=== PATIENT | female | born 1975 | race Caucasian/White ===

== ENCOUNTER 2017-03-07 21:43 | Emergency (ER) | payer OTHER ==
[2017-03-07] MEDS ORDERED: SODIUM CHLORIDE 0.9% 1,000 ML IV STA ×2 (22:10)
[2017-03-07] MEDS ORDERED: ONDANSETRON 4 MG/2 ML VIAL IVP STA (22:10)
[2017-03-07] MEDS ORDERED: KETOROLAC 30 MG/ML 1 ML VIAL IVP STA (22:10)
[2017-03-07] MEDS ORDERED: diphenhydrAMINE 50 MG/ML 1 ML VIAL IVP STA (22:10)
[2017-03-07] MEDS: MORPHINE SULFATE 4 MG/ML SYRINGE IV STA ×2 (22:18→22:38)
[2017-03-07 22:33] LABS: Basophils # (A) 0.1 k/uL (0-0.2); Basophils % (A) 1 %; CH 30.1; CHCM 34.8; Eosinophils # (A) 0.4 k/uL (0-0.7); Eosinophils % (A) 3 %; HCT 42.4 % (34.0-46.0); HDW 2.57; HGB 14.8 gm/dL (11.4-16.0); Luc # (Auto) 0.18; Luc % (Auto) 2; Lymphocytes # (A) 4.3 k/uL (1.0-4.8); Lymphocytes % (A) 39 %; MCH 30.4 pg (25.0-35.0); Monocytes # (A) 0.4 k/uL (0-1.0); Monocytes % (A) 4 %; Neutrophils # (A) 5.6 k/uL (1.3-7.7); Neutrophils % (A) 51 %; RBC 4.87 m/uL (3.80-5.40); RDW 13.2 % (11.5-15.5); WBC 10.9 k/uL (3.8-10.6); WBC (Perox) 11.07
--- NOTE | 2017-03-07 22:34 | ED ---
Abdominal Pain HPI - General Chief Complaint: Abdominal Pain Stated Complaint: Abd Pain Time Seen by Provider: 03/07/17 21:54 Source: patient, RN notes reviewed, old records reviewed Mode of arrival: ambulatory Limitations: no limitations - History of Present Illness Initial Comments: This is a 41-year-old female presenting to the emergency Department chief complaint of right flank pain. Patient reports it's been occurring for the past 2 days. She has a lengthy history of kidney stones. Patient states that she sees a urologist Uriah. She reports she's taken Flomax earlier today because she thinks she has another kidney stone. Patient states that she's been doing well for the past few months and hasn't had a recurrence of the kidney stones. Patient states that she takes Percocet for chronic left flank pain, and relates that her left flank feels fine compared to the right. She states that she's had some nausea. No specific vomiting. She also relates that over the past month she's had a dramatic weight loss without trying. She reports that she's had diarrhea off and on. Denies any blood in her stools. She reports that she told this her primary care provider and was seen earlier this week for evaluation for her diabetes. She was increased on her metformin. states he feels very chilled. Patient denies any recent chest pain, abdominal pain,vomiting, numbness or tingling, dysuria or hematuria, constipation or diarrhea, headaches or visual changes, or any other current symptoms - Related Data Home Medications Medication Instructions Recorded Confirmed LORazepam [Ativan] 1 mg PO BID 03/01/16 03/07/17 PARoxetine HCL [Paxil] 40 mg PO DAILY 03/01/16 03/07/17 oxyCODONE HCL/ACETAMINOPHEN 1 tab PO QID PRN 04/08/16 03/07/17 [Percocet 10-325 mg] Lisinopril [Zestril] 10 mg PO DAILY 03/07/17 03/07/17 Loratadine [Claritin] 10 mg PO DAILY 03/07/17 03/07/17 Metformin (Unknown Dose) 1 dose PO TID 03/07/17 03/07/17 Tamsulosin [Flomax] 0.4 mg PO DAILY 03/07/17 03/07/17 Previous Rx's Medication Instructions Recorded Ciprofloxacin HCl [Cipro] 500 mg PO Q12HR 7 Days 03/08/17 Fluconazole [Diflucan] 150 mg PO DAILY #2 tab 03/08/17 Ketorolac [Toradol] 10 mg PO Q6HR #15 tab 03/08/17 Allergies Allergy/AdvReac Type Severity Reaction Status Date / Time bupropion HCl Allergy Rash/Hives Verified 03/07/17 22:39 [From Wellbutrin] Iodinated Contrast- Oral and Allergy Anaphylaxis Verified 03/07/17 22:39 IV Dye [Iodinated Contrast Media - IV Dye] orange juice [[place]] Allergy Rash/Hives Verified 03/07/17 22:39 Penicillins Allergy Rash/Hives Verified 03/07/17 22:39 Sulfa (Sulfonamide Allergy Rash/Hives Verified 03/07/17 22:39 Antibiotics) morphine AdvReac Vomiting Verified 03/07/17 21:45 Review of Systems ROS Statement: Those systems with pertinent positive or pertinent negative responses have been documented in the HPI. ROS Other: All systems not noted in ROS Statement are negative. Past Medical History Past Medical History: Diabetes Mellitus Additional Past Medical History / Comment(s): abd pain, recurrent kidney stones , colitis, migraines, polycyctic kidney disorder History of Any Multi-Drug Resistant Organisms: None Reported Past Surgical History: Section, Cholecystectomy, Hysterectomy, Tubal Ligation Additional Past Surgical History / Comment(s): D&C, lithotripsy, left rotator cuff, ovarian cyst removal, left wrist surgery for tendonitis kidney scope with temporary stent placement Past Anesthesia/Blood Transfusion Reactions: No Reported Reaction Past Psychological History: ADD/ADHD, Anxiety, Depression Smoking Status: Current every day smoker Past Alcohol Use History: None Reported Past Drug Use History: None Reported - Past Family History Father Family Medical History: Coronary Artery Disease (CAD), CVA/TIA, Diabetes Mellitus, Renal Disease Additional Family Medical History / Comment(s): GLAUCOMA,NEUROPATHY HAD TRIPLE CAGB, FROM RENAL FAILURE Mother Family Medical History: Coronary Artery Disease (CAD), Hyperlipidemia, Hypertension, Rheumatoid Arthritis (RA) Additional Family Medical History / Comment(s): DDD, HAD CABG AGE 53. General Exam - General Exam Comments Initial Comments: 41-year-old female. No acute distress. Limitations: no limitations General appearance: alert Head exam: Present: atraumatic, normocephalic, normal inspection Eye exam: Present: normal appearance, PERRL, EOMI. Absent: scleral icterus, conjunctival injection, periorbital swelling ENT exam: Present: normal exam, mucous membranes moist Neck exam: Present: normal inspection. Absent: tenderness, meningismus, lymphadenopathy Respiratory exam: Present: normal lung sounds bilaterally. Absent: respiratory distress, wheezes, rales, rhonchi, stridor Cardiovascular Exam: Present: regular rate, normal rhythm, normal heart sounds. Absent: systolic murmur, diastolic murmur, rubs, gallop, clicks GI/Abdominal exam: Present: soft, normal bowel sounds, other (Right-sided CVA tenderness.). Absent: distended, tenderness, guarding, rebound, rigid Extremities exam: Present: normal inspection, full ROM, normal capillary refill. Absent: tenderness, pedal edema, joint swelling, calf tenderness Back exam: Present: normal inspection Neurological exam: Present: alert, oriented X3, CN II-XII intact Psychiatric exam: Present: normal affect, normal mood Skin exam: Present: warm, dry, intact, normal color. Absent: rash Course Vital Signs 03/07/17 03/07/17 03/07/17 21:45 22:40 23:35 Temperature 97.9 F 98.7 F Pulse Rate 107 H 73 72 Respiratory 20 18 16 Rate Blood Pressure 145/73 125/68 119/72 O2 Sat by Pulse 98 95 98 Oximetry Medical Decision Making - Medical Decision Making 41-year-old female presents emergency Department chief complaint of 2 days of right flank pain. Lengthy history of kidney stones. Does see a urologist and cold. Patient states that she is ready taken Flomax and has nausea medicine at home. She also takes Percocet regularly for chronic pain of her left kidney. Patient reports that her pain medication is not helping. Patient urinalysis is positive for hematuria, and some signs of infection with white blood cells noted. Culture obtained. Lab work in the [facility]CC was within normal limits, normal kidney function. No other significant abnormalities. RENALS US WAS OBTAINED, as patient reports multiple previous CT scan. NEGATIVE FOR ANY MAJOR HYDRONEPHROSIS OR OBSTRUCTION. PATIENT KUB ALSO SHOWS NO ABNORMAL BOWEL CHANGES. AGAIN PATIENT HAS NO ABDOMINAL TENDERNESS, ONLY SOME RIGHT CVA TENDERNESS. PATIENT BE DISCHARGED AT THIS TIME WITH ANTIBIOTICS, AND TORADOL. ALSO REQUESTS A PRESCRIPTION FOR DIFLUCAN SHE IS CONCERNED THAT SHE MAY GET THESE INFECTION. SHE HURT HE HAS NAUSEA MEDICINE AND PAIN MEDICATION AT HOME. WELL FLOMAX. PATIENT UNDERSTANDS TREATMENT PLAN WILL COMPLY. STRICT RETURN PARAMETERS WERE DISCUSSED. PATIENT PLANS TO FOLLOW-UP WITH HER PCP AND UROLOGIST WITHIN THE NEXT DAY OR 2. - Lab Data Result diagrams: 03/07/17 22:22 03/07/17 22:22 Lab Results 03/07/17 03/07/17 03/07/17 Range/Units 22:22 22:22 22:22 WBC 10.9 H (3.8-10.6) k/uL RBC 4.87 (3.80-5.40) m/uL Hgb 14.8 (11.4-16.0) gm/dL Hct 42.4 (34.0-46.0) % MCV 87.0 (80.0-100.0) fL MCH 30.4 (25.0-35.0) pg MCHC 35.0 (31.0-37.0) g/dL RDW 13.2 (11.5-15.5) % Plt Count 272 (150-450) k/uL Neutrophils % 51 % Lymphocytes % 39 % Monocytes % 4 % Eosinophils % 3 % Basophils % 1 % Neutrophils # 5.6 (1.3-7.7) k/uL Lymphocytes # 4.3 (1.0-4.8) k/uL Monocytes # 0.4 (0-1.0) k/uL Eosinophils # 0.4 (0-0.7) k/uL Basophils # 0.1 (0-0.2) k/uL PT 9.9 (9.0-12.0) sec INR 1.0 (<1.2) APTT 24.9 (22.0-30.0) sec Sodium 135 L (137-145) mmol/L Potassium 4.2 (3.5-5.1) mmol/L Chloride 100 (98-107) mmol/L Carbon Dioxide 20 L (22-30) mmol/L Anion Gap 15 mmol/L BUN 8 (7-17) mg/dL Creatinine 0.62 (0.52-1.04) mg/dL Est GFR (MDRD) Af Amer >60 (>60 ml/min/1.73 sqM) Est GFR (MDRD) Non-Af >60 (>60 ml/min/1.73 sqM) Glucose 269 H (74-99) mg/dL Calcium 10.3 H (8.4-10.2) mg/dL Total Bilirubin 0.6 (0.2-1.3) mg/dL AST 59 H (14-36) U/L ALT 88 H (9-52) U/L Alkaline Phosphatase 109 (38-126) U/L Total Protein 7.6 (6.3-8.2) g/dL Albumin 4.8 (3.5-5.0) g/dL Amylase 39 (30-110) U/L Lipase 266 (23-300) U/L Urine Color Urine Appearance (Clear) Urine pH (5.0-8.0) Ur Specific [place] (1.001-1.035) Urine Protein (Negative) Urine Glucose (UA) (Negative) Urine Ketones (Negative) Urine Blood (Negative) Urine Nitrite (Negative) Urine Bilirubin (Negative) Urine Urobilinogen (<2.0) mg/dL Ur Leukocyte Esterase (Negative) Urine RBC (0-5) /hpf Urine WBC (0-5) /hpf Urine WBC Clumps (None) /hpf Ur Squamous Epith Cells (0-4) /hpf Urine Bacteria (None) /hpf 03/07/17 Range/Units 22:22 WBC (3.8-10.6) k/uL RBC (3.80-5.40) m/uL Hgb (11.4-16.0) gm/dL Hct (34.0-46.0) % MCV (80.0-100.0) fL MCH (25.0-35.0) pg MCHC (31.0-37.0) g/dL RDW (11.5-15.5) % Plt Count (150-450) k/uL Neutrophils % % Lymphocytes % % Monocytes % % Eosinophils % % Basophils % % Neutrophils # (1.3-7.7) k/uL Lymphocytes # (1.0-4.8) k/uL Monocytes # (0-1.0) k/uL Eosinophils # (0-0.7) k/uL Basophils # (0-0.2) k/uL PT (9.0-12.0) sec INR (<1.2) APTT (22.0-30.0) sec Sodium (137-145) mmol/L Potassium (3.5-5.1) mmol/L Chloride (98-107) mmol/L Carbon Dioxide (22-30) mmol/L Anion Gap mmol/L BUN (7-17) mg/dL Creatinine (0.52-1.04) mg/dL Est GFR (MDRD) Af Amer (>60 ml/min/1.73 sqM) Est GFR (MDRD) Non-Af (>60 ml/min/1.73 sqM) Glucose (74-99) mg/dL Calcium (8.4-10.2) mg/dL Total Bilirubin (0.2-1.3) mg/dL AST (14-36) U/L ALT (9-52) U/L Alkaline Phosphatase (38-126) U/L Total Protein (6.3-8.2) g/dL Albumin (3.5-5.0) g/dL Amylase (30-110) U/L Lipase (23-300) U/L Urine Color Red Urine Appearance Cloudy H (Clear) Urine pH 5.5 (5.0-8.0) Ur Specific [place] 1.016 (1.001-1.035) Urine Protein 1+ H (Negative) Urine Glucose (UA) 4+ H (Negative) Urine Ketones 1+ H (Negative) Urine Blood Moderate H (Negative) Urine Nitrite Negative (Negative) Urine Bilirubin Negative (Negative) Urine Urobilinogen <2.0 (<2.0) mg/dL Ur Leukocyte Esterase Small H (Negative) Urine RBC >182 H (0-5) /hpf Urine WBC 33 H (0-5) /hpf Urine WBC Clumps Few H (None) /hpf Ur Squamous Epith Cells 9 H (0-4) /hpf Urine Bacteria Occasional H (None) /hpf Disposition Clinical Impression: Right flank pain, Kidney stone Disposition: HOME SELF-CARE Condition: Good Instructions: Flank Pain (ED) Additional Instructions: Patient denies to follow-up with your primary care provider and urologist. Take the antibiotics and prescriptions as prescribed. Return to the emergency department if any alarming signs or symptoms occur. Prescriptions: Ciprofloxacin HCl [Cipro] 500 mg PO Q12HR 7 Days Fluconazole [Diflucan] 150 mg PO DAILY #2 tab Ketorolac [Toradol] 10 mg PO Q6HR #15 tab Referrals: Melchor Stevens MD [Primary Care Provider] - 1-2 days Time of Disposition: 00:12
[2017-03-07 22:39] LABS: Appearance,Urine Cloudy (Clear); Bacteria,Urine Occasional /hpf; Bilirubin,Urine Negative (Negative); Glucose,Urine (UA) 4+ (Negative); Ketones,Urine 1+ (Negative); Leukocyte Esterase,Urine Small (Negative); Nitrite,Urine Negative (Negative); PH, Urine 5.5 (5.0-8.0); Particle Count 8873; Protein,Urine 1+ (Negative); RBC,Urine >182 /hpf (0-5); Specific Gravity,Urine 1.016 (1.001-1.035); Squamous Epithelial Cell,Urine 9 /hpf (0-4); UA Billing (MACRO vs. MICRO) MICRO; Urobilinogen,Urine <2.0 mg/dL (<2.0); WBC,Urine 33 /hpf (0-5)
[2017-03-07 22:43] LABS: ALT 88 U/L (9-52); AST 59 U/L (14-36); Alkaline Phosphatase 109 U/L (38-126); Amylase 39 U/L (30-110); Anion Gap 15 mmol/L; Blood Urea Nitrogen 8 mg/dL (7-17); Calcium 10.3 mg/dL (8.4-10.2); Carbon Dioxide 20 mmol/L (22-30); Chloride 100 mmol/L (98-107); Glucose 269 mg/dL (74-99); Non-African American GFR(MDRD) >60 (>60 ml/min/1.73 sqM); Potassium 4.2 mmol/L (3.5-5.1); Sodium 135 mmol/L (137-145); Total Bilirubin 0.6 mg/dL (0.2-1.3); Total Protein 7.6 g/dL (6.3-8.2)
[2017-03-07 22:45] LABS: Partial Thromboplastin Time 24.9 sec (22.0-30.0); Prothrombin Time 9.9 sec (9.0-12.0)
[2017-03-07 23:37] VITALS: RESP 16
[2017-03-07] MEDS ORDERED: HYDROmorphone 1 MG/ML 1 ML SYRINGE IVP STA (23:37)
--- NOTE | 2017-03-07 23:38 | US ---
EXAM: US Retroperitoneal Complete, Renal CLINICAL HISTORY: Pain. Hematuria. History of kidney stones. TECHNIQUE: Real-time ultrasound of the kidneys and bladder with image documentation. COMPARISON: CT dated 03/01/2016. FINDINGS: Right kidney: Right kidney measures 11.8 x 5.1 x 4.1 cm. No hydronephrosis. No shadowing renal calculi or mass visualized. Left kidney: Left kidney measures 10.2 x 4.7 x 4.0 cm. No hydronephrosis. No shadowing renal calculi or mass visualized. Bladder: Underdistended bladder. Ureteral jets not visualized. IMPRESSION: 1. Unremarkable renal ultrasound. No hydronephrosis or renal calculi visualized. 2. Underdistended urinary bladder. Ureteral jets not visualized.
[2017-03-08] MEDS ORDERED: CIPROFLOXACIN HCL 500 MG TAB PO STA (00:08)
[2017-03-08 00:14] VITALS: BP 127/72; PULSE 93; TEMP 98.6
--- NOTE | 2017-03-08 01:09 | XR ---
EXAM: XR Abdomen CLINICAL HISTORY: Right flank pain. TECHNIQUE: Frontal view of the abdomen and pelvis. A total of 2 upright frontal images were obtained. COMPARISON: No relevant prior studies available. FINDINGS: Free air: No free intraperitoneal air beneath the diaphragms. Gastrointestinal tract: Nonspecific bowel gas pattern without evidence of bowel obstruction. Visualized organs and vessels: Surgical clips in the gallbladder fossa. Small calcifications in the right pelvis, likely phleboliths. No calcifications within the renal fossa or along the expected course of the ureters. Bones/joints: No radiographically evidence of acute osseous abnormality. IMPRESSION: 1. Small calcifications in the right pelvis, likely phleboliths. 2. No radiographic evidence of calcifications in the renal fossa or along the expected course of the ureters. 3. No evidence of bowel obstruction or free air. 4. Surgical clips in the right upper quadrant compatible with cholecystectomy.
== END 2017-03-08 00:21 | disposition home or self-care (01) ==
LOC: EC 21:43
DX: N20.0 Calculus of kidney (principal); R11.0 Nausea; R68.83 Chills (without fever); R82.99 Other abnormal findings in urine; E11.9 Type 2 diabetes mellitus without complications; F32.9 Major depressive disorder, single episode, unspecified; F41.9 Anxiety disorder, unspecified; Z84.1 Family history of disorders of kidney and ureter; F17.200 Nicotine dependence, unspecified, uncomplicated; Z79.84 Long term (current) use of oral hypoglycemic drugs; Z79.899 Other long term (current) drug therapy; Z88.0 Allergy status to penicillin; Z88.2 Allergy status to sulfonamides; Z88.5 Allergy status to narcotic agent; Z88.8 Allergy status to other drugs, medicaments and biological substances; Z91.018 Allergy to other foods; Z91.041 Radiographic dye allergy status; Z90.49 Acquired absence of other specified parts of digestive tract; Z98.890 Other specified postprocedural states; Z87.442 Personal history of urinary calculi
CPT/HCPCS: 36415; 80053; 82150; 83690; 85025; 85610; 85730; 81001; 87086; 74000; 76770; 99285; 96374; 96375 ×4; 96361 ×2; J2270; J1200; J2405; J1885; J1170

== ENCOUNTER 2017-03-16 12:14 | Emergency (ER) | payer OTHER ==
[2017-03-16] MEDS ORDERED: ONDANSETRON 4 MG/2 ML VIAL IVP STA (12:35)
[2017-03-16] MEDS ORDERED: SODIUM CHLORIDE 0.9% 1,000 ML IV STA ×2 (12:35)
--- NOTE | 2017-03-16 12:38 | ED ---
General Adult HPI - General Chief complaint: Nausea/Vomiting/Diarrhea Stated complaint: Diarrhea/Abd Pain Time Seen by Provider: 03/16/17 12:26 Source: patient, RN notes reviewed, old records reviewed Mode of arrival: ambulatory Limitations: no limitations - History of Present Illness Initial comments: 41-year-old female presents for evaluation of 2 month history of diarrhea. Patient has past medical history of bilateral kidney stones. She takes Percocet for this at home. She denies missing any doses. She is also had some crampy abdominal pain. Which is minimal at the time my evaluation. States she' s had nausea with no vomiting. Denies fever or chills. She states that over the past 3 days her diarrhea has significantly worsened. His been watery. No blood. Denies dysuria. Denies chest pain or shortness of breath. - Related Data Home Medications Medication Instructions Recorded Confirmed LORazepam [Ativan] 1 mg PO BID 03/01/16 03/16/17 PARoxetine HCL [Paxil] 40 mg PO DAILY 03/01/16 03/16/17 oxyCODONE HCL/ACETAMINOPHEN 1 tab PO QID PRN 04/08/16 03/16/17 [Percocet 10-325 mg] Lisinopril [Zestril] 10 mg PO DAILY 03/07/17 03/16/17 Loratadine [Claritin] 10 mg PO DAILY 03/07/17 03/16/17 Tamsulosin [Flomax] 0.4 mg PO DAILY 03/07/17 03/16/17 metFORMIN HCL [metFORMIN HCL ER] 750 mg PO BID 03/16/17 03/16/17 Allergies Allergy/AdvReac Type Severity Reaction Status Date / Time bupropion HCl Allergy Rash/Hives Verified 03/16/17 13:26 [From Wellbutrin] Iodinated Contrast- Oral and Allergy Anaphylaxis Verified 03/16/17 13:26 IV Dye [Iodinated Contrast Media - IV Dye] orange juice [[place]] Allergy Rash/Hives Verified 03/16/17 13:26 Penicillins Allergy Rash/Hives Verified 03/16/17 13:26 Sulfa (Sulfonamide Allergy Rash/Hives Verified 03/16/17 13:26 Antibiotics) Review of Systems ROS Statement: Those systems with pertinent positive or pertinent negative responses have been documented in the HPI. ROS Other: All systems not noted in ROS Statement are negative. Past Medical History Past Medical History: Diabetes Mellitus Additional Past Medical History / Comment(s): abd pain, recurrent kidney stones , colitis, migraines, polycyctic kidney disorder History of Any Multi-Drug Resistant Organisms: None Reported Past Surgical History: Section, Cholecystectomy, Hysterectomy, Tubal Ligation Additional Past Surgical History / Comment(s): D&C, lithotripsy, left rotator cuff, ovarian cyst removal, left wrist surgery for tendonitis kidney scope with temporary stent placement Past Anesthesia/Blood Transfusion Reactions: No Reported Reaction Past Psychological History: ADD/ADHD, Anxiety, Depression Smoking Status: Current every day smoker Past Alcohol Use History: None Reported Past Drug Use History: None Reported - Past Family History Father Family Medical History: Coronary Artery Disease (CAD), CVA/TIA, Diabetes Mellitus, Renal Disease Additional Family Medical History / Comment(s): GLAUCOMA,NEUROPATHY HAD TRIPLE CAGB, FROM RENAL FAILURE Mother Family Medical History: Coronary Artery Disease (CAD), Hyperlipidemia, Hypertension, Rheumatoid Arthritis (RA) Additional Family Medical History / Comment(s): DDD, HAD CABG AGE 53. General Exam Limitations: no limitations General appearance: alert, in no apparent distress Head exam: Present: atraumatic, normocephalic Eye exam: Present: normal appearance, PERRL ENT exam: Present: mucous membranes moist Neck exam: Present: normal inspection, full ROM. Absent: tenderness Respiratory exam: Present: normal lung sounds bilaterally. Absent: respiratory distress Cardiovascular Exam: Present: regular rate, normal rhythm GI/Abdominal exam: Present: soft. Absent: distended, tenderness, guarding, rebound Extremities exam: Present: normal inspection, normal capillary refill. Absent: pedal edema Back exam: Present: normal inspection. Absent: CVA tenderness (R), CVA tenderness (L) Neurological exam: Present: alert, oriented X3 Psychiatric exam: Present: normal affect, normal mood Skin exam: Present: warm, dry, intact. Absent: cyanosis, diaphoretic Course Vital Signs 03/16/17 03/16/17 03/16/17 12:20 12:50 14:00 Temperature 97.0 F L 98.3 F Pulse Rate 107 H 82 Respiratory 17 18 18 Rate Blood Pressure 130/78 128/73 O2 Sat by Pulse 99 99 Oximetry Medical Decision Making - Medical Decision Making 41-year-old female presents with 2 month history of diarrhea worsening over the past 3 days. No recent travel. No new pads. No recent antibiotics. Patient is well-hydrated on examination. She is also having some flank pain consistent with her history kidney stones. X-rays obtained shows no obstruction or free air, there is kidney stone. Kidney function is within normal limits. Patient receives IV hydration and pain medication. She is feeling much better. She does have elevated serum glucose at 256 with history diabetes. She is currently taking metformin for this. Urinalysis shows greater than 182 red blood cells consistent with cardiac kidney stone. There is also 3+ glucose and 1+ ketone. She receives IV hydration and is instructed to continue this when she gets home. I believe ketones are related more to dehydration rather than diabetic ketoacidosis. Patient is agreeable with this plan she will return to the emergency department with worsening symptoms. Patient will be given follow-up with gastroenterology for the 2 month history of diarrhea. Diagnosis: Kidney stone, diarrhea - Lab Data Result diagrams: 03/16/17 12:45 03/16/17 12:45 Lab Results 03/16/17 03/16/17 03/16/17 Range/Units 12:45 12:45 12:45 WBC 12.6 H (3.8-10.6) k/uL RBC 4.68 (3.80-5.40) m/uL Hgb 14.3 (11.4-16.0) gm/dL Hct 41.7 (34.0-46.0) % MCV 89.1 (80.0-100.0) fL MCH 30.6 (25.0-35.0) pg MCHC 34.4 (31.0-37.0) g/dL RDW 13.1 (11.5-15.5) % Plt Count 296 (150-450) k/uL Neutrophils % 63 % Lymphocytes % 30 % Monocytes % 3 % Eosinophils % 2 % Basophils % 1 % Neutrophils # 7.9 H (1.3-7.7) k/uL Lymphocytes # 3.7 (1.0-4.8) k/uL Monocytes # 0.4 (0-1.0) k/uL Eosinophils # 0.3 (0-0.7) k/uL Basophils # 0.1 (0-0.2) k/uL Sodium 138 (137-145) mmol/L Potassium 4.4 (3.5-5.1) mmol/L Chloride 104 (98-107) mmol/L Carbon Dioxide 17 L (22-30) mmol/L Anion Gap 17 mmol/L BUN 11 (7-17) mg/dL Creatinine 0.67 (0.52-1.04) mg/dL Est GFR (MDRD) Af Amer >60 (>60 ml/min/1.73 sqM) Est GFR (MDRD) Non-Af >60 (>60 ml/min/1.73 sqM) Glucose 256 H (74-99) mg/dL Calcium 10.1 (8.4-10.2) mg/dL Total Bilirubin 0.6 (0.2-1.3) mg/dL AST 97 H (14-36) U/L ALT 102 H (9-52) U/L Alkaline Phosphatase 108 (38-126) U/L Total Protein 7.4 (6.3-8.2) g/dL Albumin 4.5 (3.5-5.0) g/dL Amylase 33 (30-110) U/L Lipase 193 (23-300) U/L Urine Color Light Red Urine Appearance Cloudy H (Clear) Urine pH 5.5 (5.0-8.0) Ur Specific [place] 1.022 (1.001-1.035) Urine Protein 1+ H (Negative) Urine Glucose (UA) 3+ H (Negative) Urine Ketones 1+ H (Negative) Urine Blood Large H (Negative) Urine Nitrite Negative (Negative) Urine Bilirubin Negative (Negative) Urine Urobilinogen <2.0 (<2.0) mg/dL Ur Leukocyte Esterase Trace H (Negative) Urine RBC >182 H (0-5) /hpf Urine WBC 8 H (0-5) /hpf Ur Squamous Epith Cells 15 H (0-4) /hpf Urine Mucus Rare H (None) /hpf Urine HCG, Qual (Not Detectd) 03/16/17 Range/Units 12:45 WBC (3.8-10.6) k/uL RBC (3.80-5.40) m/uL Hgb (11.4-16.0) gm/dL Hct (34.0-46.0) % MCV (80.0-100.0) fL MCH (25.0-35.0) pg MCHC (31.0-37.0) g/dL RDW (11.5-15.5) % Plt Count (150-450) k/uL Neutrophils % % Lymphocytes % % Monocytes % % Eosinophils % % Basophils % % Neutrophils # (1.3-7.7) k/uL Lymphocytes # (1.0-4.8) k/uL Monocytes # (0-1.0) k/uL Eosinophils # (0-0.7) k/uL Basophils # (0-0.2) k/uL Sodium (137-145) mmol/L Potassium (3.5-5.1) mmol/L Chloride (98-107) mmol/L Carbon Dioxide (22-30) mmol/L Anion Gap mmol/L BUN (7-17) mg/dL Creatinine (0.52-1.04) mg/dL Est GFR (MDRD) Af Amer (>60 ml/min/1.73 sqM) Est GFR (MDRD) Non-Af (>60 ml/min/1.73 sqM) Glucose (74-99) mg/dL Calcium (8.4-10.2) mg/dL Total Bilirubin (0.2-1.3) mg/dL AST (14-36) U/L ALT (9-52) U/L Alkaline Phosphatase (38-126) U/L Total Protein (6.3-8.2) g/dL Albumin (3.5-5.0) g/dL Amylase (30-110) U/L Lipase (23-300) U/L Urine Color Urine Appearance (Clear) Urine pH (5.0-8.0) Ur Specific [place] (1.001-1.035) Urine Protein (Negative) Urine Glucose (UA) (Negative) Urine Ketones (Negative) Urine Blood (Negative) Urine Nitrite (Negative) Urine Bilirubin (Negative) Urine Urobilinogen (<2.0) mg/dL Ur Leukocyte Esterase (Negative) Urine RBC (0-5) /hpf Urine WBC (0-5) /hpf Ur Squamous Epith Cells (0-4) /hpf Urine Mucus (None) /hpf Urine HCG, Qual Not Detected (Not Detectd) Disposition Clinical Impression: Diarrhea, Renal stone Disposition: HOME SELF-CARE Condition: Good Instructions: Acute Diarrhea (ED) Referrals: Melchor Stevens MD [Primary Care Provider] - 1-2 days Yanira Win MD [STAFF PHYSICIAN] - 1-2 days Time of Disposition: 14:45
[2017-03-16 13:11] LABS: Basophils # (A) 0.1 k/uL (0-0.2); Basophils % (A) 1 %; CHCM 33.8; Eosinophils # (A) 0.3 k/uL (0-0.7); Eosinophils % (A) 2 %; HCT 41.7 % (34.0-46.0); HDW 2.48; HGB 14.3 gm/dL (11.4-16.0); Luc # (Auto) 0.19; Luc % (Auto) 2; Lymphocytes # (A) 3.7 k/uL (1.0-4.8); Lymphocytes % (A) 30 %; MCH 30.6 pg (25.0-35.0); MCHC 34.4 g/dL (31.0-37.0); MCV 89.1 fL (80.0-100.0); Mean Platelet Volume 7.5; Monocytes # (A) 0.4 k/uL (0-1.0); Monocytes % (A) 3 %; Neutrophils # (A) 7.9 k/uL (1.3-7.7); Neutrophils % (A) 63 %; RBC 4.68 m/uL (3.80-5.40); RDW 13.1 % (11.5-15.5); WBC 12.6 k/uL (3.8-10.6); WBC (Perox) 12.93
[2017-03-16 13:14] LABS: Appearance,Urine Cloudy (Clear); Bilirubin,Urine Negative (Negative); Glucose,Urine (UA) 3+ (Negative); Ketones,Urine 1+ (Negative); Leukocyte Esterase,Urine Trace (Negative); Mucus,Urine Rare /hpf; Nitrite,Urine Negative (Negative); PH, Urine 5.5 (5.0-8.0); Particle Count 8825; Protein,Urine 1+ (Negative); RBC,Urine >182 /hpf (0-5); Specific Gravity,Urine 1.022 (1.001-1.035); Squamous Epithelial Cell,Urine 15 /hpf (0-4); UA Billing (MACRO vs. MICRO) MICRO; Urobilinogen,Urine <2.0 mg/dL (<2.0); WBC,Urine 8 /hpf (0-5)
--- NOTE | 2017-03-16 13:19 | XR ---
Abdomen HISTORY: Pain and diarrhea Frontal view of the abdomen on 2 images correlated to prior abdomen 03/07/2017 There is a scoliotic curvature present of the thoracic lumbar spine. Surgical clips are present in th e right upper quadrant. Lung bases are clear. No evident pneumoperitoneum or bowel obstruction. There is a paucity of bowel gas. Difficult to exclude nephrolithiasis. IMPRESSION: There is a relative decrease of bowel gas. Possible nephrolithiasis. Alternate imaging ma y be of benefit. Follow-up as indicated.
[2017-03-16 13:40] LABS: ALT 102 U/L (9-52); AST 97 U/L (14-36); Alkaline Phosphatase 108 U/L (38-126); Amylase 33 U/L (30-110); Anion Gap 17 mmol/L; Blood Urea Nitrogen 11 mg/dL (7-17); Calcium 10.1 mg/dL (8.4-10.2); Carbon Dioxide 17 mmol/L (22-30); Chloride 104 mmol/L (98-107); Glucose 256 mg/dL (74-99); Non-African American GFR(MDRD) >60 (>60 ml/min/1.73 sqM); Potassium 4.4 mmol/L (3.5-5.1); Sodium 138 mmol/L (137-145); Total Bilirubin 0.6 mg/dL (0.2-1.3); Total Protein 7.4 g/dL (6.3-8.2)
[2017-03-16] MEDS ORDERED: MORPHINE SULFATE 4 MG/ML SYRINGE IVP STA (14:06)
[2017-03-16 14:15] VITALS: BP 128/73
[2017-03-16] MEDS ORDERED: KETOROLAC 30 MG/ML 1 ML VIAL IVP STA (14:37)
[2017-03-16 15:01] VITALS: PULSE 74; RESP 16; TEMP 98.7
== END 2017-03-16 15:03 | disposition home or self-care (01) ==
LOC: EC 12:14
DX: R19.7 Diarrhea, unspecified (principal); N20.0 Calculus of kidney; R10.9 Unspecified abdominal pain; R11.0 Nausea; E11.9 Type 2 diabetes mellitus without complications; F32.9 Major depressive disorder, single episode, unspecified; F41.9 Anxiety disorder, unspecified; F90.9 Attention-deficit hyperactivity disorder, unspecified type; F17.200 Nicotine dependence, unspecified, uncomplicated; Z79.84 Long term (current) use of oral hypoglycemic drugs; Z79.899 Other long term (current) drug therapy; Z91.041 Radiographic dye allergy status; Z88.0 Allergy status to penicillin; Z88.2 Allergy status to sulfonamides; Z91.048 Other nonmedicinal substance allergy status; Z88.8 Allergy status to other drugs, medicaments and biological substances
CPT/HCPCS: 36415; 80053; 82150; 83690; 85025; 81001; 81025; 74000; 99284; 96374; 96375 ×2; 96361 ×2; J2270; J2405; J1885

== ENCOUNTER 2017-03-19 19:26 | Inpatient (IN) | payer OTHER ==
[2017-03-19] MEDS ORDERED: SODIUM CHLORIDE 0.9% 1,000 ML IV STA (22:54)
[2017-03-19] MEDS ORDERED: SODIUM CHLORIDE 0.9% 500 ML IV STA (22:54)
[2017-03-19] MEDS ORDERED: ONDANSETRON 4 MG/2 ML VIAL IVP STA (22:54)
[2017-03-19] MEDS ORDERED: MORPHINE SULFATE 4 MG/ML SYRINGE IV STA (22:54)
[2017-03-19] MEDS ORDERED: RX INFO: IV CONTRAST WAS GIVEN 1 EACH MISC MISCELLANE PRN (22:54)
[2017-03-19] MEDS ORDERED: methylPREDNISolone SOD SUCCI 125 MG/2 ML VIAL IV STA (23:08)
[2017-03-19] MEDS ORDERED: diphenhydrAMINE 50 MG/ML 1 ML VIAL IVP STA (23:09)
[2017-03-19] MEDS ORDERED: FAMOTIDINE 20 MG/2 ML VIAL IV STA (23:10)
[2017-03-19 23:14] LABS: Basophils # (A) 0.1 k/uL (0-0.2); Basophils % (A) 1 %; CH 30.2; CHCM 33.9; Eosinophils # (A) 0.3 k/uL (0-0.7); Eosinophils % (A) 2 %; HCT 42.5 % (34.0-46.0); HDW 2.43; HGB 14.7 gm/dL (11.4-16.0); Luc # (Auto) 0.24; Luc % (Auto) 2; Lymphocytes # (A) 4.4 k/uL (1.0-4.8); Lymphocytes % (A) 36 %; MCH 30.8 pg (25.0-35.0); MCHC 34.6 g/dL (31.0-37.0); MCV 89.2 fL (80.0-100.0); Mean Platelet Volume 7.2; Monocytes # (A) 0.5 k/uL (0-1.0); Monocytes % (A) 4 %; Neutrophils # (A) 6.8 k/uL (1.3-7.7); Neutrophils % (A) 55 %; RBC 4.76 m/uL (3.80-5.40); RDW 13.2 % (11.5-15.5); WBC 12.3 k/uL (3.8-10.6); WBC (Perox) 12.99
[2017-03-19 23:27] LABS: ALT 95 U/L (9-52); AST 101 U/L (14-36); Alkaline Phosphatase 104 U/L (38-126); Amylase 53 U/L (30-110); Anion Gap 14 mmol/L; Blood Urea Nitrogen 13 mg/dL (7-17); Calcium 10.2 mg/dL (8.4-10.2); Carbon Dioxide 20 mmol/L (22-30); Chloride 103 mmol/L (98-107); Glucose 188 mg/dL (74-99); Non-African American GFR(MDRD) >60 (>60 ml/min/1.73 sqM); Potassium 5.4 mmol/L (3.5-5.1); Sodium 137 mmol/L (137-145); Total Bilirubin 1.1 mg/dL (0.2-1.3); Total Protein 8.1 g/dL (6.3-8.2)
[2017-03-19] MEDS ORDERED: SODIUM CHLORIDE 0.9% 2,000 ML IV ONE (23:31)
--- NOTE | 2017-03-20 00:29 | CT ---
EXAMINATION TYPE: CT abdomen pelvis wo con DATE OF EXAM: 03/20/2017 COMPARISON: 03/01/2016 and 05/12/2015 HISTORY: Prior on synapse 2016, renal stone protocol, lower left sided abd pain with nausea and diarr hea, history of cholecystectomy and hysterectomy CT DLP: 527.10 mGycm Automated exposure control for dose reduction was used. TECHNIQUE: Helical acquisition of images was performed from the lung bases through the pelvis. FINDINGS: Lung bases are clear of consolidation. There is no pleural effusion. Heart size is normal. Liver shows no focal defect. There are clips from cholecystectomy. Bile ducts are not dilated. Spleen and pancreas appear normal. There is no adrenal mass. Kidneys have normal size and contour. There is no hydronephrosis. Ureters a re not dilated. There is a 7 mm calcification at the right renal pelvis. There is no retroperitoneal adenopathy. There is no ascites. I see no intestinal wall thickening. There are no dilated loops. Appendix appears normal. Bladder dis tends smoothly. There are phleboliths in the pelvis. I see no bony destructive process. Liver is enla rged and measures 20 cm in length. There is a 2 mm calcification at the posterior aspect of the left renal pelvis that is probably vascu lar. This is also present on the old CT scan and is unchanged. This is near the ureteropelvic junctio n. This calcification is also stable compared to 05/12/2015. IMPRESSION: CALCULUS IN THE RIGHT RENAL PELVIS IS NEW COMPARED TO OLD CT SCAN. STABLE TINY CALCULUS AT THE SCHEDULING CLERK IOR ASPECT ON THE LEFT SIDE AT THE URETEROPELVIC JUNCTION THAT I DO NOT THINK IS PRODUCING AN OBSTRUC TION. THE LEFT RENAL COLLECTING SYSTEM IS SMALLER THAN OLD CT SCAN OF 05/12/2015. THE RIGHT RENAL SHANTE CULUS IS NOT PRODUCING ANY HYDRONEPHROSIS. NORMAL APPENDIX. Hepatomegaly.
[2017-03-20 00:42] LABS: Appearance,Urine Cloudy (Clear); Bilirubin,Urine Negative (Negative); Glucose,Urine (UA) 4+ (Negative); Ketones,Urine 1+ (Negative); Leukocyte Esterase,Urine Small (Negative); Mucus,Urine Moderate /hpf; Nitrite,Urine Negative (Negative); PH, Urine 5.5 (5.0-8.0); Particle Count 12735; Protein,Urine 1+ (Negative); RBC,Urine >182 /hpf (0-5); Squamous Epithelial Cell,Urine 5 /hpf (0-4); UA Billing (MACRO vs. MICRO) MICRO; Urobilinogen,Urine <2.0 mg/dL (<2.0)
[2017-03-20] MEDS ORDERED: SODIUM POLYSTYRENE SULFONATE 15 GM/60 ML BOTTLE PO STA (01:11)
[2017-03-20] MEDS: MORPHINE SULFATE 4 MG/ML SYRINGE IVP PRN ×2 (01:20→03:31)
--- NOTE | 2017-03-20 02:11 | ED ---
Abdominal Pain HPI - General Chief Complaint: Abdominal Pain Stated Complaint: Abd Pain Source: patient Mode of arrival: ambulatory Limitations: no limitations - History of Present Illness Initial Comments: 41 years old female presents with abdominal pain, pain is in the lower abdomen and also complaining about a diarrhea ongoing for about 3 weeks she is saying that she lost 20 pounds she is status post hysterectomy she does have a history of kidney stones Pain is in the lower abdomen bilaterally. She denies any fever no chills denies any vomiting been nauseous denies any fever or chills. Denies any headaches or neck stiffness no chest pain or shortness of breath - Related Data Home Medications Medication Instructions Recorded Confirmed LORazepam [Ativan] 1 mg PO TID 03/01/16 03/19/17 PARoxetine HCL [Paxil] 40 mg PO HS 03/01/16 03/19/17 oxyCODONE HCL/ACETAMINOPHEN 1 tab PO TID PRN 04/08/16 03/19/17 [Percocet 10-325 mg] Lisinopril [Zestril] 10 mg PO HS 03/07/17 03/19/17 Loratadine [Claritin] 10 mg PO HS 03/07/17 03/19/17 metFORMIN HCL 1,000 mg PO TID 03/19/17 03/19/17 Allergies Allergy/AdvReac Type Severity Reaction Status Date / Time bupropion HCl Allergy Rash/Hives Verified 03/19/17 23:01 [From Wellbutrin] Iodinated Contrast- Oral and Allergy Anaphylaxis Verified 03/19/17 23:01 IV Dye [Iodinated Contrast Media - IV Dye] orange juice [[place]] Allergy Rash/Hives Verified 03/19/17 23:01 Sulfa (Sulfonamide Allergy Rash/Hives Verified 03/19/17 23:01 Antibiotics) Penicillins AdvReac Nausea & Verified 03/19/17 23:01 Vomiting Review of Systems ROS Statement: Those systems with pertinent positive or pertinent negative responses have been documented in the HPI. ROS Other: All systems not noted in ROS Statement are negative. Past Medical History Past Medical History: Diabetes Mellitus Additional Past Medical History / Comment(s): abd pain, recurrent kidney stones , colitis, migraines, polycyctic kidney disorder History of Any Multi-Drug Resistant Organisms: None Reported Past Surgical History: Section, Cholecystectomy, Hysterectomy, Tubal Ligation Additional Past Surgical History / Comment(s): D&C, lithotripsy, left rotator cuff, ovarian cyst removal, left wrist surgery for tendonitis kidney scope with temporary stent placement Past Anesthesia/Blood Transfusion Reactions: No Reported Reaction Past Psychological History: ADD/ADHD, Anxiety, Depression Smoking Status: Current every day smoker Past Alcohol Use History: None Reported Past Drug Use History: None Reported - Past Family History Father Family Medical History: Coronary Artery Disease (CAD), CVA/TIA, Diabetes Mellitus, Renal Disease Additional Family Medical History / Comment(s): GLAUCOMA,NEUROPATHY HAD TRIPLE CAGB, FROM RENAL FAILURE Mother Family Medical History: Coronary Artery Disease (CAD), Hyperlipidemia, Hypertension, Rheumatoid Arthritis (RA) Additional Family Medical History / Comment(s): DDD, HAD CABG AGE 53. General Exam - General Exam Comments Initial Comments: General: The patient is awake and alert, in moderate distress Skin: Skin is warm and dry and no rashes or lesions are noted. Eye: Pupils are equal, round and reactive to light, extra-ocular movements are intact; there is normal conjunctiva bilaterally. Ears, nose, mouth and throat: There are moist mucous membranes and no oral lesions. Neck: The neck is supple, there is no tenderness or JVD. Cardiovascular: There is a regular rate and rhythm. No murmur, rub or gallop is appreciated. Respiratory: To auscultation bilateral, no wheezing no rhonchi no distress respiratory garcia noticed Gastrointestinal: Diffuse mild tenderness noticed in the lower abdomen positive bowel sounds no guarding no rebounds, mildly tender midthoracic area social Back: There is no tenderness to palpation in the midline. There is no obvious deformity. Musculoskeletal: Normal ROM, no tenderness, There is no pedal edema. There is no calf tenderness or swelling. No cords were appreciated. Neurological: CN II-XII intact, Cranial nerves III through XII are intact. There are no obvious motor or sensory deficits. Coordination appears grossly intact. Speech is normal. Psychiatric: Cooperative, appropriate mood & affect, normal judgment. Limitations: no limitations Course Vital Signs 03/19/17 03/20/17 03/20/17 20:39 00:29 01:51 Temperature 98.2 F Pulse Rate 91 62 74 Respiratory 20 18 18 Rate Blood Pressure 119/86 117/59 106/58 O2 Sat by Pulse 99 99 97 Oximetry 03/20/17 02:29 Temperature 97.9 F Pulse Rate 82 Respiratory 18 Rate Blood Pressure 103/57 O2 Sat by Pulse 98 Oximetry Did require some pain medications, labs were reviewed and discussed with her white count is slightly elevated 12.3 lactate is 3.0 potassium is 5.4 AST and ALT are [address] of the abdomen was forhe Iv, Roceph but considering her history of anaphylaxis with the IV contrast is a discontinued the IV narcotic lost vinny be better off getting that later with a prolonged are up with the steroids and Benadryl and IV Pepcid. CT showed renal calculi bilateral, nonerythematous obstructive. Unfortunately stool sample was not available during her stay in the hospital she got to him 2 L of fluids, lactate is still elevated and she still complaining about abdominal pain I plan to admit her to the CAT scan (a consult Dr. Lo considering her 3 weeks worth the diarrhea for possible scope is in considering elevated lactate and continuous abdominal pain of the chiropractors broad-spectrum antibiotics Medical Decision Making - Lab Data Result diagrams: 03/19/17 22:49 03/19/17 22:49 Lab Results 03/19/17 03/19/17 03/19/17 Range/Units 22:49 22:49 22:49 WBC 12.3 H (3.8-10.6) k/uL RBC 4.76 (3.80-5.40) m/uL Hgb 14.7 (11.4-16.0) gm/dL Hct 42.5 (34.0-46.0) % MCV 89.2 (80.0-100.0) fL MCH 30.8 (25.0-35.0) pg MCHC 34.6 (31.0-37.0) g/dL RDW 13.2 (11.5-15.5) % Plt Count 283 (150-450) k/uL Neutrophils % 55 % Lymphocytes % 36 % Monocytes % 4 % Eosinophils % 2 % Basophils % 1 % Neutrophils # 6.8 (1.3-7.7) k/uL Lymphocytes # 4.4 (1.0-4.8) k/uL Monocytes # 0.5 (0-1.0) k/uL Eosinophils # 0.3 (0-0.7) k/uL Basophils # 0.1 (0-0.2) k/uL Sodium 137 (137-145) mmol/L Potassium 5.4 H (3.5-5.1) mmol/L Chloride 103 (98-107) mmol/L Carbon Dioxide 20 L (22-30) mmol/L Anion Gap 14 mmol/L BUN 13 (7-17) mg/dL Creatinine 0.60 (0.52-1.04) mg/dL Est GFR (MDRD) Af Amer >60 (>60 ml/min/1.73 sqM) Est GFR (MDRD) Non-Af >60 (>60 ml/min/1.73 sqM) Glucose 188 H (74-99) mg/dL Lactic Ac Sepsis Rflx Plasma Lactic Acid Brant 3.0 H* (0.7-2.0) mmol/L Calcium 10.2 (8.4-10.2) mg/dL Total Bilirubin 1.1 (0.2-1.3) mg/dL AST 101 H (14-36) U/L ALT 95 H (9-52) U/L Alkaline Phosphatase 104 (38-126) U/L Total Protein 8.1 (6.3-8.2) g/dL Albumin 4.8 (3.5-5.0) g/dL Amylase 53 (30-110) U/L Lipase 280 (23-300) U/L Urine Color Urine Appearance (Clear) Urine pH (5.0-8.0) Ur Specific [place] (1.001-1.035) Urine Protein (Negative) Urine Glucose (UA) (Negative) Urine Ketones (Negative) Urine Blood (Negative) Urine Nitrite (Negative) Urine Bilirubin (Negative) Urine Urobilinogen (<2.0) mg/dL Ur Leukocyte Esterase (Negative) Urine RBC (0-5) /hpf Ur Squamous Epith Cells (0-4) /hpf Urine Mucus (None) /hpf Urine Yeast (Budding) (None) /hpf Urine HCG, Qual (Not Detectd) 03/19/17 03/20/17 03/20/17 Range/Units 23:27 00:29 00:29 WBC (3.8-10.6) k/uL RBC (3.80-5.40) m/uL Hgb (11.4-16.0) gm/dL Hct (34.0-46.0) % MCV (80.0-100.0) fL MCH (25.0-35.0) pg MCHC (31.0-37.0) g/dL RDW (11.5-15.5) % Plt Count (150-450) k/uL Neutrophils % % Lymphocytes % % Monocytes % % Eosinophils % % Basophils % % Neutrophils # (1.3-7.7) k/uL Lymphocytes # (1.0-4.8) k/uL Monocytes # (0-1.0) k/uL Eosinophils # (0-0.7) k/uL Basophils # (0-0.2) k/uL Sodium (137-145) mmol/L Potassium (3.5-5.1) mmol/L Chloride (98-107) mmol/L Carbon Dioxide (22-30) mmol/L Anion Gap mmol/L BUN (7-17) mg/dL Creatinine (0.52-1.04) mg/dL Est GFR (MDRD) Af Amer (>60 ml/min/1.73 sqM) Est GFR (MDRD) Non-Af (>60 ml/min/1.73 sqM) Glucose (74-99) mg/dL Lactic Ac Sepsis Rflx Y Plasma Lactic Acid Brant (0.7-2.0) mmol/L Calcium (8.4-10.2) mg/dL Total Bilirubin (0.2-1.3) mg/dL AST (14-36) U/L ALT (9-52) U/L Alkaline Phosphatase (38-126) U/L Total Protein (6.3-8.2) g/dL Albumin (3.5-5.0) g/dL Amylase (30-110) U/L Lipase (23-300) U/L Urine Color Red Urine Appearance Cloudy H (Clear) Urine pH 5.5 (5.0-8.0) Ur Specific [place] 1.020 (1.001-1.035) Urine Protein 1+ H (Negative) Urine Glucose (UA) 4+ H (Negative) Urine Ketones 1+ H (Negative) Urine Blood Large H (Negative) Urine Nitrite Negative (Negative) Urine Bilirubin Negative (Negative) Urine Urobilinogen <2.0 (<2.0) mg/dL Ur Leukocyte Esterase Small H (Negative) Urine RBC >182 H (0-5) /hpf Ur Squamous Epith Cells 5 H (0-4) /hpf Urine Mucus Moderate H (None) /hpf Urine Yeast (Budding) Many H (None) /hpf Urine HCG, Qual Not Detected (Not Detectd) 03/20/17 Range/Units 01:51 WBC (3.8-10.6) k/uL RBC (3.80-5.40) m/uL Hgb (11.4-16.0) gm/dL Hct (34.0-46.0) % MCV (80.0-100.0) fL MCH (25.0-35.0) pg MCHC (31.0-37.0) g/dL RDW (11.5-15.5) % Plt Count (150-450) k/uL Neutrophils % % Lymphocytes % % Monocytes % % Eosinophils % % Basophils % % Neutrophils # (1.3-7.7) k/uL Lymphocytes # (1.0-4.8) k/uL Monocytes # (0-1.0) k/uL Eosinophils # (0-0.7) k/uL Basophils # (0-0.2) k/uL Sodium (137-145) mmol/L Potassium (3.5-5.1) mmol/L Chloride (98-107) mmol/L Carbon Dioxide (22-30) mmol/L Anion Gap mmol/L BUN (7-17) mg/dL Creatinine (0.52-1.04) mg/dL Est GFR (MDRD) Af Amer (>60 ml/min/1.73 sqM) Est GFR (MDRD) Non-Af (>60 ml/min/1.73 sqM) Glucose (74-99) mg/dL Lactic Ac Sepsis Rflx Plasma Lactic Acid Brant 3.1 H* (0.7-2.0) mmol/L Calcium (8.4-10.2) mg/dL Total Bilirubin (0.2-1.3) mg/dL AST (14-36) U/L ALT (9-52) U/L Alkaline Phosphatase (38-126) U/L Total Protein (6.3-8.2) g/dL Albumin (3.5-5.0) g/dL Amylase (30-110) U/L Lipase (23-300) U/L Urine Color Urine Appearance (Clear) Urine pH (5.0-8.0) Ur Specific [place] (1.001-1.035) Urine Protein (Negative) Urine Glucose (UA) (Negative) Urine Ketones (Negative) Urine Blood (Negative) Urine Nitrite (Negative) Urine Bilirubin (Negative) Urine Urobilinogen (<2.0) mg/dL Ur Leukocyte Esterase (Negative) Urine RBC (0-5) /hpf Ur Squamous Epith Cells (0-4) /hpf Urine Mucus (None) /hpf Urine Yeast (Budding) (None) /hpf Urine HCG, Qual (Not Detectd) Disposition Clinical Impression: Abdominal pain, Diarrhea, Renal calculi, Hyperkalemia Disposition: ADMITTED IP TO THIS HOSP Referrals: Melchor Stevens MD [Primary Care Provider] - 1-2 days
[2017-03-20] MEDS ORDERED: metroNIDAZOLE-NS PMX 500 MG in SALINE 1 100ML.BAG IVPB STA (02:40)
[2017-03-20] MEDS ORDERED: cefTRIAXone 2,000 MG in SODIUM CHLORIDE 0.9% 100 ML IVPB STA (02:40)
[2017-03-20] MEDS ORDERED: NALOXONE 0.4 MG/ML 1 ML VIAL IV PRN (03:10)
[2017-03-20] MEDS ORDERED: LOPERAMIDE 2 MG CAP PO PRN (03:10)
[2017-03-20] MEDS: HYDROmorphone 1 MG/ML 1 ML SYRINGE IV PRN ×6 (05:32→21:48)
[2017-03-20] MEDS: LORazepam 1 MG TAB PO SCH ×3 (09:08→21:45)
[2017-03-20] MEDS: PANTOPRAZOLE 40 MG/10 ML VIAL IV SCH (09:09)
[2017-03-20] MEDS: ENOXAPARIN 40 MG/0.4 ML SYRINGE SQ SCH (09:11)
[2017-03-20] MEDS: metFORMIN 500 MG TAB PO SCH ×3 (09:23→21:45)
[2017-03-20 12:22] LABS: Glucose,Whole Blood 393 mg/dL (75-99)
--- NOTE | 2017-03-20 12:22 | P.CONS ---
History of Present Illness - Reason for Consult Consult date: 03/20/17 diarrhea Requesting physician: Bernardo Zhang - History of Present Illness 41-year-old female patient Dr. Stevens with a past medical history of obesity, non -insulin-dependent diabetes mellitus diagnosed a year ago, chronic kidney stones , polycystic kidney disease, migraines, and cholecystectomy. Patient presents with reports of intermittent mid to lower abdominal pain with nonbloody diarrhea for 3 months. Persistent nausea without emesis. No bleeding. No fever or chills. 20 pound unintentional weight loss over the past few months with no appetite changes. Colonoscopy about 3 years ago at an outside facility to her memory unremarkable maybe a few polyps removed. Familial history of colon carcinoma with paternal grandmother and maternal aunt. No personal or familial history of inflammatory bowel disease. Admission hemoglobin 14.7. White count 12.3. Platelet 283. Potassium 5.4. BUN 13 creatinine 0.6. Lactic acid 3.0-3.5. Total bilirubin 1.1. AST 101. ALT 95. Alk phos is 104. Lipase 280. CT no mentioning of bowel obstruction, inflammatory changes, free air, or abscess. Appendix normal. Additionally she has been seeing a supervisory air intercept controller for chronic left foot/ankle brown colored skin discoloration that started several months ago being treated with antibiotics and topical creams without improvement; she says it's worsened. This area of discoloration has never opened or drained. No visible lesions. Does not itch or hurt. HCG negative. Urinalysis positive for blood small leukocyte esterase moderate mucus and many yeast. Recently placed on antibiotics about 10 days ago for UTI prior to that no antibiotics. Diarrhea is sporadic sometimes increased with meals sometimes not. It does wake her up in the middle the night. Several episodes a day sometimes just a few. Prior to the onset of diarrhea 3 months ago averaged 2-3 looser stools on a daily basis. Metformin dosage was increased over the last few months but she has been on the medication for more than a year and has not noticed increased diarrhea with the dosage change. She has tried [id number] Pepto-Bismol and Imodium without relief. Since admission no episodes of diarrhea. Stool studies have been requested and are pending. Review of Systems Constitutional: Denies fever, chills, sweats, weight gain, or loss. HEENT: Negative for migraines, blurred vision or loss, earaches, drainage, tinnitus, oral mucosal lesions, dysphagia, or odynophagia. CARDIAC: Negative for chest pain, arrhythmias, or palpitation. RESPIRATORY: Negative for shortness of breath, hemoptysis, cough, or sputum production. GI: See HPI for pertinent findings. : Negative for hematuria, urgency, frequency, polyuria, or dysuria. GYNc: Denies possibility of . Negative vaginal discharge. MUSCULOSKELETAL: Negative for muscle aches, swelling, arthritis, and arthralgias. NEUROLOGIC: Negative for stroke or TIA. ENDOCRINE: Diabetes. Negative for thyroid problems. Nephrology: Chronic kidney stones. UTI. Polycystic kidney disease. SKIN: Negative for rash or itching. 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 Pt states that about 6 months ago she started with skin discoloration L ankle that has increased in size-she saw a supervisory air intercept controller who prescibed antibiotic cream with no improvement-she also states the skin feels tight in that area and that her ankle now will occasionally "pop." History of Any Multi-Drug Resistant Organisms: None Reported Past Surgical History: Bladder Surgery, Section, Cholecystectomy, Hysterectomy, Orthopedic Surgery, Tubal Ligation Additional Past Surgical History / Comment(s): R ovarian cystectomy, laparoscopic surgery for L ovary that had attached to the bowel, total hysterectomy, D&C, x1, numerous lithotripsies, nephroscopies, cystoscopies and stents to ureters-none in place at this time, L robotic pyeloplasty with post op infection around kidney which then required a picc line and 8 weeks vancomycin (pt states was not MRSA), cervical injections, L rotator cuff repair, L wrist tendon surgery. Past Anesthesia/Blood Transfusion Reactions: No Reported Reaction Smoking Status: Current every day smoker - Past Family History Father Family Medical History: Coronary Artery Disease (CAD), CVA/TIA, Diabetes Mellitus, Renal Disease Additional Family Medical History / Comment(s): GLAUCOMA,NEUROPATHY HAD TRIPLE CABG, FROM RENAL FAILURE Mother Family Medical History: Coronary Artery Disease (CAD), Hyperlipidemia, Hypertension, Rheumatoid Arthritis (RA) Additional Family Medical History / Comment(s): DDD, HAD 3 vessel CABG AGE 53. Medications and Allergies Home Medications Medication Instructions Recorded Confirmed Type LORazepam [Ativan] 1 mg PO TID 03/01/16 03/19/17 History PARoxetine HCL [Paxil] 40 mg PO HS 03/01/16 03/19/17 History oxyCODONE HCL/ACETAMINOPHEN 1 tab PO TID PRN 04/08/16 03/19/17 History [Percocet 10-325 mg] Lisinopril [Zestril] 10 mg PO HS 03/07/17 03/19/17 History Loratadine [Claritin] 10 mg PO HS 03/07/17 03/19/17 History metFORMIN HCL 1,000 mg PO TID 03/19/17 03/19/17 History Allergies Allergy/AdvReac Type Severity Reaction Status Date / Time bupropion HCl Allergy Rash/Hives Verified 03/19/17 23:01 [From Wellbutrin] Iodinated Contrast- Oral and Allergy Anaphylaxis Verified 03/19/17 23:01 IV Dye [Iodinated Contrast Media - IV Dye] orange juice [[place]] Allergy Rash/Hives Verified 03/19/17 23:01 Sulfa (Sulfonamide Allergy Rash/Hives Verified 03/19/17 23:01 Antibiotics) Penicillins AdvReac Nausea & Verified 03/19/17 23:01 Vomiting Physical Exam Vitals: Vital Signs Temp Pulse Pulse Resp BP BP Pulse Ox 03/20/17 12:14 84 16 138/62 96 03/20/17 08:02 65 19 108/55 96 03/20/17 06:38 85 18 118/72 96 03/20/17 05:35 68 18 101/54 100 03/20/17 03:33 86 16 113/65 96 03/20/17 02:29 97.9 F 82 18 103/57 98 03/20/17 01:51 74 18 106/58 97 03/20/17 00:29 62 18 117/59 99 03/19/17 20:39 98.2 F 91 20 119/86 99 Intake and Output 03/19/17 03/20/17 03/20/17 22:59 06:59 14:59 Other: Weight 77.111 kg General appearance: The patient is alert, oriented, in no acute distress. HET: Head is normocephalic and atraumatic. Pupils are equal and reactive. Oropharynx is clear without lesions. Neck: Supple without lymphadenopathy. Trachea midline. Heart: S1 S2. Regular rate and rhythm. Lungs: No crackles or wheezes are heard. Abdomen: Soft, very mild lower abdominal tenderness bilaterally, nondistended with bowel sounds. No peritoneal signs. No palpable organomegaly or masses. Extremities: Brown based Discoloration to the left lower foot ankle region without swelling. No visible lesions open wounds or drainage. Normal skin color and turgor. No cyanosis, rash, ulceration, clubbing, or edema. Radial and pedal pulses are 2/4 bilaterally. Neurological: No focal deficits. Strength and sensation are grossly intact. Results CBC & Chem 7: 03/19/17 22:49 03/19/17 22:49 Labs: Abnormal Lab Results - Last 24 Hours (Table) 03/19/17 03/19/17 03/19/17 Range/Units 22:49 22:49 22:49 WBC 12.3 H (3.8-10.6) k/uL Potassium 5.4 H (3.5-5.1) mmol/L Carbon Dioxide 20 L (22-30) mmol/L Glucose 188 H (74-99) mg/dL Plasma Lactic Acid Brant 3.0 H* (0.7-2.0) mmol/L AST 101 H (14-36) U/L ALT 95 H (9-52) U/L Urine Appearance (Clear) Urine Protein (Negative) Urine Glucose (UA) (Negative) Urine Ketones (Negative) Urine Blood (Negative) Ur Leukocyte Esterase (Negative) Urine RBC (0-5) /hpf Ur Squamous Epith Cells (0-4) /hpf Urine Mucus (None) /hpf Urine Yeast (Budding) (None) /hpf 03/20/17 03/20/17 03/20/17 Range/Units 00:29 01:51 06:12 WBC (3.8-10.6) k/uL Potassium (3.5-5.1) mmol/L Carbon Dioxide (22-30) mmol/L Glucose (74-99) mg/dL Plasma Lactic Acid Brant 3.1 H* 3.5 H* (0.7-2.0) mmol/L AST (14-36) U/L ALT (9-52) U/L Urine Appearance Cloudy H (Clear) Urine Protein 1+ H (Negative) Urine Glucose (UA) 4+ H (Negative) Urine Ketones 1+ H (Negative) Urine Blood Large H (Negative) Ur Leukocyte Esterase Small H (Negative) Urine RBC >182 H (0-5) /hpf Ur Squamous Epith Cells 5 H (0-4) /hpf Urine Mucus Moderate H (None) /hpf Urine Yeast (Budding) Many H (None) /hpf CT scan - abdomen: report reviewed (Dr. Win) Assessment and Plan (1) Diarrhea Narrative/Plan: Intermittent nonbloody diarrhea with lower abdominal pain for 3 months. Possible inflammatory possible infectious etiology is unclear. Presently without diarrhea. Status: Acute Plan: 1. Stool studies. 2. EGD colonoscopy discussed inpatient versus outpatient will be determined after reevaluation tomorrow. Continue supportive measures. Light diet as tolerated. Empiric antibiotics have been started. Will follow closely with you. Thank you for this kind referral and the opportunity to participate in the care of your patient. This consultation was discussed with Dr. Win. The impression and plan of care have been directed as dictated.
[2017-03-20] MEDS: INSULIN LISPRO (humaLOG) 300 UNIT/3 ML VIAL SQ SCH ×3 (12:28→20:36)
[2017-03-20 13:21] LABS: Hemoglobin A1C 10.1 % (4.2-6.1)
[2017-03-20] MEDS: metroNIDAZOLE 500 MG TAB PO SCH ×2 (15:24→21:45)
[2017-03-20 17:21] LABS: Glucose,Whole Blood 302 mg/dL (75-99)
[2017-03-20 20:14] LABS: Glucose,Whole Blood 290 mg/dL (75-99)
[2017-03-20] MEDS: oxyCODONE-APAP 10-325MG 1 EACH TAB PO PRN (20:47)
[2017-03-20] MEDS: ONDANSETRON 4 MG/2 ML VIAL IVP PRN (20:47)
[2017-03-20] MEDS: PARoxetine 20 MG TAB PO SCH (21:08)
[2017-03-20] MEDS: LISINOPRIL 10 MG TAB PO SCH (21:08)
[2017-03-20] MEDS: LORATADINE 10 MG TAB PO SCH (21:08)
[2017-03-20] MEDS: diphenhydrAMINE 25 MG CAP PO PRN (23:18)
--- NOTE | 2017-03-20 23:36 | HP ---
HISTORY AND PHYSICAL DATE OF ADMISSION: 03/20/2017 PRESENTING COMPLAINT: Abdominal pain, diarrhea. HISTORY OF PRESENTING COMPLAINT: This is a 41-year-old patient of whose stable medical conditions include diabetes, history of colitis, small hemorrhoids, kidney stones, polycystic ovarian disease, ADHD. The patient comes in for having 3 months of diarrhea off and on, anywhere from 0 to probably 15 a day, somewhat loose, sometimes smells awful. The patient not sure of it really sticks to the gutierrez. There was no blood present. Abdominal pain is present and she is presenting here. The patient has lost about 20 pounds. REVIEW OF SYSTEM: Weak, tired, loss of appetite weight loss. HEENT: None. RESPIRATORY: None. CARDIOVASCULAR: None. GASTROINTESTINAL: As above. GENITOURINARY: None. MUSCULOSKELETAL: None. DERMATOLOGICAL: The patient has a patch on the left ankle which is being worked up by dermatologists. HEMATOLOGIC: None. LYMPHATIC: None. PSYCHIATRY: Some anxiety, depression. NEUROLOGICAL: None. PAST HISTORY: Diabetes mellitus, colitis, hemorrhoids, nephrolithiasis, polycystic kidney disease, some demyelination, bilateral astigmatism, TMJ, skin discolorations around the left ankle. PAST SURGICAL HISTORY: Bladder surgery, , cholecystectomy, hysterectomy, right ovarian cystectomy, laparoscopic surgical left ovary, resection of the bowel, total hysterectomy, numerous lithotripsies. Cystoscopy with stents to ureter. None in place currently. Left rotator cuff repair. SOCIAL HISTORY: Smokes about 1/2 pack a day for the last 23 years. Lives with family members. Patient stays home. FAMILY HISTORY: Coronary artery disease, stroke, diabetes, kidney disease, neuropathy. HOME MEDICATIONS: 1. 10 t.i.d. p.r.n. 2. Metformin 1000 mg p.o. t.i.d. 3. Paxil 40 mg q.h.s. 4. Claritin 10 mg q.h.s. 5. Zestril 10 mg p.o. q.h.s. 6. Ativan 1 mg p.o. t.i.d. ALLERGIES: WELLBUTRIN, IV CONTRAST DYE, ORANGE JUICE, SULFA, PENICILLIN. EXAMINATION: VITAL SIGNS ON PRESENTATION: Temperature 98.2, pulse 91, respirations 20, blood pressure 109/86, pulse ox 99% on room air. GENERAL APPEARANCE: Well built, BMI 32.1. Lying in bed, tired appearing. EYES: Pupils equal. Conjunctivae normal. HEENT: Oral cavity normal. NECK: JVD not raised. Mass not palpable. RESPIRATORY: Effort normal. Lungs are clear. CARDIOVASCULAR: First and second sounds normal. No edema. ABDOMEN: Soft. Mild diffuse tenderness. No guarding or rigidity. Liver, spleen not palpable. LYMPHATIC: No lymph nodes palpable in neck or axillae. PSYCHIATRY: Alert and oriented x3. Mood and affect slightly anxious-appearing. NEUROLOGICAL: Pupils equal. Cranial nerves grossly intact. Power and sensation grossly intact. INVESTIGATIONS: White count 12.3, hemoglobin 14.7, potassium 5.4, BUN 13, creatinine 0.6. AST 101, ALT 95. CT scan of the abdomen and pelvis shows right renal pelvis calculi. ASSESSMENT: 1. Acute on chronic diarrhea present intermittently for the last 3 months associated with abdominal pain with no blood in the stools. The differential is long. Will rule out ova and parasites. 2. Diabetes mellitus type 2. 3. Kidney stones, asymptomatic. 4. Polycystic ovarian syndrome. 5. Attention deficit hyperactivity disorder. PLAN: Home medications are resumed. Accu-Cheks will be followed. GI was consulted. They plan to do endoscopy tomorrow. Stool will be sent for ova and parasites care was discussed with the patient. MMODL / IJN: [id number] /
[2017-03-21] MEDS: cefTRIAXone 2,000 MG in SODIUM CHLORIDE 0.9% 100 ML IVPB SCH (02:11)
[2017-03-21] MEDS: HYDROmorphone 1 MG/ML 1 ML SYRINGE IV PRN ×7 (02:11→18:15)
[2017-03-21] MEDS: oxyCODONE-APAP 10-325MG 1 EACH TAB PO PRN ×4 (06:10→22:55)
[2017-03-21 07:06] LABS: Glucose,Whole Blood 232 mg/dL (75-99)
[2017-03-21] MEDS: PANTOPRAZOLE 40 MG/10 ML VIAL IV SCH (08:02)
[2017-03-21] MEDS: ENOXAPARIN 40 MG/0.4 ML SYRINGE SQ SCH (08:02)
[2017-03-21] MEDS: metroNIDAZOLE 500 MG TAB PO SCH ×3 (08:03→21:51)
[2017-03-21] MEDS: INSULIN LISPRO (humaLOG) 300 UNIT/3 ML VIAL SQ SCH ×4 (08:03→21:54)
[2017-03-21] MEDS: metFORMIN 500 MG TAB PO SCH ×4 (08:03→21:55)
[2017-03-21] MEDS: LORazepam 1 MG TAB PO SCH ×3 (08:12→21:51)
[2017-03-21 08:15] LABS: ALT 74 U/L (9-52); AST 35 U/L (14-36); Alkaline Phosphatase 82 U/L (38-126); Anion Gap 13 mmol/L; Blood Urea Nitrogen 13 mg/dL (7-17); Calcium 8.7 mg/dL (8.4-10.2); Carbon Dioxide 21 mmol/L (22-30); Chloride 106 mmol/L (98-107); Glucose 232 mg/dL (74-99); Non-African American GFR(MDRD) >60 (>60 ml/min/1.73 sqM); Potassium 4.1 mmol/L (3.5-5.1); Sodium 140 mmol/L (137-145); Total Bilirubin 0.1 mg/dL (0.2-1.3)
[2017-03-21 08:16] LABS: Basophils # (A) 0.1 k/uL (0-0.2); Basophils % (A) 0 %; CH 29.7; CHCM 31.8; Eosinophils # (A) 0.1 k/uL (0-0.7); Eosinophils % (A) 1 %; HCT 36.4 % (34.0-46.0); HDW 2.44; HGB 11.9 gm/dL (11.4-16.0); Luc # (Auto) 0.14; Luc % (Auto) 1; Lymphocytes # (A) 3.1 k/uL (1.0-4.8); Lymphocytes % (A) 29 %; MCH 30.6 pg (25.0-35.0); MCHC 32.6 g/dL (31.0-37.0); MCV 93.8 fL (80.0-100.0); Mean Platelet Volume 7.3; Monocytes # (A) 0.5 k/uL (0-1.0); Monocytes % (A) 4 %; Neutrophils # (A) 7.1 k/uL (1.3-7.7); Neutrophils % (A) 65 %; RBC 3.88 m/uL (3.80-5.40); RDW 13.1 % (11.5-15.5); WBC 10.9 k/uL (3.8-10.6); WBC (Perox) 11.17
--- NOTE | 2017-03-21 09:02 | P.PN ---
Subjective Principal diagnosis: diarrhea abdominal pain No diarrhea. Small formed nonbloody stool last night. Diffuse mild abdominal discomfort. No emesis. Afebrile. Objective - Vital Signs Vital signs: Vital Signs Temp 97.9 F 03/21/17 07:00 Pulse 76 03/21/17 07:00 Resp 18 03/21/17 07:00 BP 109/73 03/21/17 07:00 Pulse Ox 95 03/21/17 07:00 Intake & Output 03/20/17 03/21/17 03/21/17 18:59 06:59 18:59 Intake Total 800 525 Balance 800 525 Weight 77.111 kg Intake: IV 800 200 Sodium Chloride 0.9% 1, 800 200 000 ml @ 100 mls/hr IV . Q10H [facility] Rx#:[id number] Intake, IV Titration 100 Amount cefTRIAXone 2,000 mg In 100 Sodium Chloride 0.9% 100 ml @ 100 mls/hr IVPB Q24H [facility] Rx#:[id number] Oral 225 Other: Voiding Method Toilet Toilet # Voids 1 - Constitutional General appearance: Present: average body habitus - EENT Eyes: Present: normal appearance - Neck Neck: Present: normal ROM - Respiratory Respiratory: bilateral: CTA - Cardiovascular Rhythm: regular Heart sounds: normal: S1, S2 - Gastrointestinal Gastrointestinal Comment(s): diffuse mild mid to lower abdominal tenderness without rebound without guarding. General gastrointestinal: Present: soft - Neurologic Neurologic: Present: CNII-XII intact - Psychiatric Psychiatric: Present: A&O x's 3, appropriate affect - Labs CBC & Chem 7: 03/21/17 07:09 03/21/17 07:09 Labs: Abnormal Lab Results - Last 24 Hours (Table) 03/19/17 03/20/17 03/20/17 Range/Units 22:49 12:21 17:18 WBC (3.8-10.6) k/uL Carbon Dioxide (22-30) mmol/L Glucose (74-99) mg/dL POC Glucose (mg/dL) 393 H 302 H (75-99) mg/dL Hemoglobin A1c 10.1 H (4.2-6.1) % Total Bilirubin (0.2-1.3) mg/dL ALT (9-52) U/L Total Protein (6.3-8.2) g/dL 03/20/17 03/21/17 03/21/17 Range/Units 20:12 06:58 07:09 WBC 10.9 H (3.8-10.6) k/uL Carbon Dioxide (22-30) mmol/L Glucose (74-99) mg/dL POC Glucose (mg/dL) 290 H 232 H (75-99) mg/dL Hemoglobin A1c (4.2-6.1) % Total Bilirubin (0.2-1.3) mg/dL ALT (9-52) U/L Total Protein (6.3-8.2) g/dL 03/21/17 Range/Units 07:09 WBC (3.8-10.6) k/uL Carbon Dioxide 21 L (22-30) mmol/L Glucose 232 H (74-99) mg/dL POC Glucose (mg/dL) (75-99) mg/dL Hemoglobin A1c (4.2-6.1) % Total Bilirubin 0.1 L (0.2-1.3) mg/dL ALT 74 H (9-52) U/L Total Protein 6.0 L (6.3-8.2) g/dL Microbiology - Last 24 Hours (Table) 03/20/17 02:54 Blood Culture - Preliminary Blood No Growth after 24 hours Assessment and Plan (1) Diarrhea Narrative/Plan: Intermittent nonbloody diarrhea with lower abdominal pain for 3 months. Possible inflammatory possible infectious etiology is unclear. Presently without diarrhea. Status: Acute Plan: 1. Stool studies if diarrhea recurs. 2. EGD colonoscopy discussed as an outpatient. Continue supportive measures. Light diet as tolerated. Assessment and plan of cared discussed with Dr. Win
[2017-03-21 11:35] LABS: Glucose,Whole Blood 325 mg/dL (75-99)
[2017-03-21] MEDS: MORPHINE SULFATE 4 MG/ML SYRINGE IVP PRN ×3 (12:27→17:42)
[2017-03-21 13:42] VITALS: BMI 32.1
[2017-03-21] MEDS: ONDANSETRON 4 MG/2 ML VIAL IVP PRN (14:54)
[2017-03-21] MEDS: diphenhydrAMINE 25 MG CAP PO PRN (14:55)
[2017-03-21 16:03] VITALS: RESP 16
--- NOTE | 2017-03-21 16:06 | P.PN ---
Progress Note - Text DATE OF SERVICE: 03/21/2017 PRESENTING COMPLAINT: Abdominal pain, diarrhea HISTORY OF PRESENT ILLNESS: 41-year-old patient who presented with complaints of 3 months of diarrhea off and on ranging from 0-15 episodes each day with abdominal pain, no blood in a 20 pound weight loss. INTERVAL HISTORY: 03/21/2017: Patient lying in bed appears somewhat uncomfortable. Tearful. States she is having excruciating abdominal pain, with lots of diarrhea unable to characterize quantity frequency, odor. GI saw the patient in light of the fact that the patient has not having any stools that have been validated by nursing staff, the decision has been made to postpone doing a scope on the client for the time being. Patient is welcome to follow-up outpatient if her symptoms persist. Continue to wait for stool studies to be resulted. Patient is tolerating her clear liquid diet, 3 BMs 03/21/2017, ambulatory to and from the bathroom. REVIEW OF SYSTEMS: Done for constitutional ,cardiovascular, GI, pulmonary, dermatologic with relevant findings as above. CURRENT MEDICATIONS Ceftriaxone, Benadryl, Dilaudid, Zestril, Imodium, Claritin, Flagyl, Percocet, Protonix. PHYSICAL EXAM VITAL SIGNS: Temperature 97.9, respirations 18, pulse 76, blood pressure 109/73, oxygen saturation 95% on room air GENERAL APPEARANCE: Lying in bed, appears uncomfortable. EYES: Pupils equal. Conjunctiva normal. NECK: JVD not raised. Mass not palpable. RESPIRATORY: Respiratory effort normal. Lungs clear to auscultation. CARDIOVASCULAR: First and second sounds normal. No edema. ABDOMEN: Soft. Mild diffuse tenderness, no guarding or rigidity Liver and spleen not palpable. No mass palpable. PSYCHIATRY: Alert and oriented x3. Mood and affect normal. DERMATOLOGIC: Brown discoloration around the left ankle, nontender INVESTIGATIONS: White blood cell count 10.9, all other lab values within normal limits ASSESSMENT: -Acute on chronic diarrhea present intermittently for the last 3 months with associated abdominal pain no blood in the stool. Differential is long. Will rule out ova and parasites. -Diabetes mellitus type 2 on oral hypoglycemics. -Kidney stones, asymptomatic. -Polycystic ovarian syndrome. -Attention deficit hyperactivity disorder. PLAN: We will continue to monitor quantity character of bowel movements, determine if GI needs to scope the patient, if patient does not have any further stooling or diarrhea, can schedule outpatient scope at the patient's convenience. Plan of care discussed with the patient the bedside she is in agreement. We'll follow. SURFACE GRINDER TENDER statement: Patient was seen and examined by nurse practitioner Lashawn Foote and all elements of the case discussed with attending Dr. Zhang
[2017-03-21 16:52] LABS: Glucose,Whole Blood 213 mg/dL (75-99)
--- NOTE | 2017-03-21 19:45 | PN ---
PROGRESS NOTE DATE OF SERVICE: 03/21/17 ATTENDING NOTE: This patient is seen and examined by me. I discussed with my nurse practitioner Ms. Foote. Patient admitted with some abdominal pain and diarrhea. Did not have any last night, had to this morning. GI when I saw the patient this morning had decided to postpone endoscopy. Patient requesting the same. Did have the nurse contact GI team to talk with the patient to see where we need go. Patient at the same time has been tolerating all her diet, regular diet. EXAMINATION: On examination, the patient is afebrile. No tachycardia. LABORATORY DATA: White count 10.9, hemoglobin 11.9, potassium 4.1. ASSESSMENT: Acute on chronic diarrhea present intermittently in a patient who is tolerating her regular diet. There is no fever, very minimal white count. PLAN: Will start stool chart on the patient to keep an exact count. GI has been informed to see if they may reconsider doing endoscopy. At the same time, patient's diarrhea has greatly improved. Empirically the patient is on ceftriaxone and Flagyl. MMODL / IJN: [id number] /
[2017-03-21 21:25] LABS: Glucose,Whole Blood 107 mg/dL (75-99)
[2017-03-21] MEDS: PARoxetine 20 MG TAB PO SCH (21:50)
[2017-03-21] MEDS: LISINOPRIL 10 MG TAB PO SCH (21:50)
[2017-03-21] MEDS: LORATADINE 10 MG TAB PO SCH (21:51)
[2017-03-22] MEDS ORDERED: oxyCODONE-APAP 10-325MG 1 EACH TAB PO SCH
[2017-03-22] MEDS: cefTRIAXone 2,000 MG in SODIUM CHLORIDE 0.9% 100 ML IVPB SCH (03:44)
[2017-03-22 04:08] LABS: Glucose,Whole Blood 347 mg/dL (75-99)
[2017-03-22] MEDS: INSULIN LISPRO (humaLOG) 300 UNIT/3 ML VIAL SQ SCH ×5 (04:08→22:34)
[2017-03-22] MEDS: oxyCODONE-APAP 10-325MG 1 EACH TAB PO PRN ×3 (04:49→22:34)
[2017-03-22 07:00] LABS: Glucose,Whole Blood 120 mg/dL (75-99)
[2017-03-22 08:16] LABS: Basophils % (A) 0 %; CH 30.2; CHCM 33.1; Eosinophils # (A) 0.2 k/uL (0-0.7); Eosinophils % (A) 3 %; HCT 36.1 % (34.0-46.0); HDW 2.49; Luc # (Auto) 0.13; Luc % (Auto) 2; Lymphocytes # (A) 2.5 k/uL (1.0-4.8); Lymphocytes % (A) 32 %; MCH 30.3 pg (25.0-35.0); MCHC 33.2 g/dL (31.0-37.0); MCV 91.4 fL (80.0-100.0); Mean Platelet Volume 6.9; Monocytes # (A) 0.3 k/uL (0-1.0); Monocytes % (A) 4 %; Neutrophils # (A) 4.5 k/uL (1.3-7.7); Neutrophils % (A) 58 %; RBC 3.95 m/uL (3.80-5.40); RDW 13.2 % (11.5-15.5); WBC 7.8 k/uL (3.8-10.6); WBC (Perox) 8.73
[2017-03-22 08:42] LABS: Amylase <30 U/L (30-110); Anion Gap 12 mmol/L; Blood Urea Nitrogen 11 mg/dL (7-17); Calcium 9.1 mg/dL (8.4-10.2); Carbon Dioxide 23 mmol/L (22-30); Chloride 105 mmol/L (98-107); Glucose 162 mg/dL (74-99); Non-African American GFR(MDRD) >60 (>60 ml/min/1.73 sqM); Potassium 3.6 mmol/L (3.5-5.1); Sodium 140 mmol/L (137-145)
[2017-03-22] MEDS: PANTOPRAZOLE 40 MG/10 ML VIAL IV SCH (08:45)
[2017-03-22] MEDS: LORazepam 1 MG TAB PO SCH ×2 (08:45→17:05)
[2017-03-22] MEDS: ENOXAPARIN 40 MG/0.4 ML SYRINGE SQ SCH (08:45)
[2017-03-22] MEDS: metFORMIN 500 MG TAB PO SCH ×3 (08:45→22:36)
[2017-03-22] MEDS: metroNIDAZOLE 500 MG TAB PO SCH ×3 (08:45→22:36)
[2017-03-22] MEDS ORDERED: HYDROmorphone 1 MG/ML 1 ML SYRINGE IVP PRN ×2 (08:58→12:17)
--- NOTE | 2017-03-22 10:01 | P.PN ---
Subjective Principal diagnosis: diarrhea abdominal pain No diarrhea few formed bowel movements stool studies so far unremarkable. Diffuse right flank pain requesting urology consultation. No emesis. Afebrile. Denies abdominal pain. Requesting diet. Hungry. Objective - Vital Signs Vital signs: Vital Signs Temp 97.2 F L 03/22/17 07:00 Pulse 74 03/22/17 07:00 Resp 16 03/22/17 07:00 BP 109/67 03/22/17 07:00 Pulse Ox 98 03/22/17 07:00 Intake & Output 03/21/17 03/22/17 03/22/17 18:59 06:59 18:59 Intake Total 465 1400 Balance 465 1400 Weight 77.111 kg Intake: Intake, IV Titration 900 Amount cefTRIAXone 2,000 mg In 900 Sodium Chloride 0.9% 100 ml @ 100 mls/hr IVPB Q24H [facility] Rx#:[id number] Oral 465 500 Other: Voiding Method Toilet Toilet Toilet # Voids 3 2 # Bowel Movements 3 3 - Exam General appearance: The patient is alert, oriented, in no acute distress. HET: Head is normocephalic and atraumatic. Pupils are equal and reactive. Oropharynx is clear without lesions. Neck: Supple without lymphadenopathy. Trachea midline. Heart: S1 S2. Regular rate and rhythm. Lungs: No crackles or wheezes are heard. Abdomen: Soft, nontender, nondistended with bowel sounds. No peritoneal signs. No palpable organomegaly or masses. Right flank tenderness upon palpation minimal right CVA tenderness Extremities: Normal skin color and turgor. No cyanosis, rash, ulceration, clubbing, or edema. Radial and pedal pulses are 2/4 bilaterally. Neurological: No focal deficits. Strength and sensation are grossly intact. - Labs CBC & Chem 7: 03/22/17 08:00 03/22/17 08:00 Labs: Abnormal Lab Results - Last 24 Hours (Table) 03/21/17 03/21/17 03/21/17 Range/Units 11:33 16:50 21:15 Glucose (74-99) mg/dL POC Glucose (mg/dL) 325 H 213 H 107 H (75-99) mg/dL Amylase (30-110) U/L 03/22/17 03/22/17 03/22/17 Range/Units 04:05 06:58 08:00 Glucose 162 H (74-99) mg/dL POC Glucose (mg/dL) 347 H 120 H (75-99) mg/dL Amylase <30 L (30-110) U/L Microbiology - Last 24 Hours (Table) 03/20/17 02:54 Blood Culture - Preliminary Blood No Growth after 48 hours 03/21/17 15:30 Stool for WBCs - Final Stool 03/21/17 15:30 Stool Culture - Preliminary Stool Assessment and Plan (1) Diarrhea Narrative/Plan: Intermittent nonbloody diarrhea with lower abdominal pain for 3 months. Possible inflammatory possible infectious etiology is unclear. Presently without diarrhea. Status: Acute Plan: 1. Regular diabetic diet as tolerated. Inpatient endoscopic exams not planned at this time secondary to absence of diarrhea and improvement in abdominal pain. She is agreeable with this plan of care. Advised to follow up in GI office in 7-10 days for reevaluation. Discharge per medicine. Assessment and plan of care discussed with Dr. Crowder.
[2017-03-22 12:09] LABS: Glucose,Whole Blood 287 mg/dL (75-99)
--- NOTE | 2017-03-22 16:15 | P.GSCN ---
History of Present Illness Consult date: 03/22/17 Reason for Consult: Kidney stone History of present illness: The patient is a 41-year-old female who was admitted for evaluation of weakness related to chronic diarrhea. The patient said that the diarrhea began approximately 2 months ago during this period of time she has lost over 10 or 15 pounds. She says the cause of the diarrhea has not been determined but it has subsided. She has been seen in the emergency room several times over this period and a computed tomography scan of the abdomen and pelvis on 03/18/2017 identified a proximal right ureteral calculus. The patient said she had some intermittent right flank pain and ago but the pain has worsened over the last week. She has also experienced intermittent gross hematuria. The patient is well known to me but I have not seen her since 2013. She has a history of calcium urolithiasis but an underlying metabolic abnormality has never been identified. 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 My last evaluation in 2013 identified no definite obstruction in this area. The patient was seen in the [facility] and most recently by a urologist in [place] who apparently performed a robotic-assisted left pyeloplasty. The patient had a computed tomography scan of the abdomen without IV contrast on 03/01/2016 and at that that time he had no calculi in the left kidney. Nonobstructive calculi measuring no more than 1 mm in size were noted in the upper and lower pole calyces of the right kidney. 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 Pt states that about 6 months ago she started with skin discoloration L ankle that has increased in size-she saw a gasoline tractor operator who prescibed antibiotic cream with no improvement-she also states the skin feels tight in that area and that her ankle now will occasionally "pop." History of Any Multi-Drug Resistant Organisms: None Reported Past Surgical History: Bladder Surgery, Section, Cholecystectomy, Hysterectomy, Orthopedic Surgery, Tubal Ligation Additional Past Surgical History / Comment(s): R ovarian cystectomy, laparoscopic surgery for L ovary that had attached to the bowel, total hysterectomy, D&C, x1, numerous lithotripsies, nephroscopies, cystoscopies and stents to ureters-none in place at this time, L robotic pyeloplasty with post op infection around kidney which then required a picc line and 8 weeks vancomycin (pt states was not MRSA), cervical injections, L rotator cuff repair, L wrist tendon surgery. Past Anesthesia/Blood Transfusion Reactions: No Reported Reaction Smoking Status: Current every day smoker - Past Family History Father Family Medical History: Coronary Artery Disease (CAD), CVA/TIA, Diabetes Mellitus, Renal Disease Additional Family Medical History / Comment(s): GLAUCOMA,NEUROPATHY HAD TRIPLE CABG, FROM RENAL FAILURE Mother Family Medical History: Coronary Artery Disease (CAD), Hyperlipidemia, Hypertension, Rheumatoid Arthritis (RA) Additional Family Medical History / Comment(s): DDD, HAD 3 vessel CABG AGE 53. Medications and Allergies Home Medications Medication Instructions Recorded Confirmed Type LORazepam [Ativan] 1 mg PO TID 03/01/16 03/19/17 History PARoxetine HCL [Paxil] 40 mg PO HS 03/01/16 03/19/17 History oxyCODONE HCL/ACETAMINOPHEN 1 tab PO TID PRN 04/08/16 03/19/17 History [Percocet 10-325 mg] Lisinopril [Zestril] 10 mg PO HS 03/07/17 03/19/17 History Loratadine [Claritin] 10 mg PO HS 03/07/17 03/19/17 History metFORMIN HCL 1,000 mg PO TID 03/19/17 03/19/17 History Allergies Allergy/AdvReac Type Severity Reaction Status Date / Time bupropion HCl Allergy Rash/Hives Verified 03/19/17 23:01 [From Wellbutrin] Iodinated Contrast- Oral and Allergy Anaphylaxis Verified 03/19/17 23:01 IV Dye [Iodinated Contrast Media - IV Dye] orange juice [[place]] Allergy Rash/Hives Verified 03/19/17 23:01 Sulfa (Sulfonamide Allergy Rash/Hives Verified 03/19/17 23:01 Antibiotics) Penicillins AdvReac Nausea & Verified 03/19/17 23:01 Vomiting Surgical - Exam Vital Signs Temp Pulse Resp BP Pulse Ox 98.2 F 91 20 119/86 99 03/19/17 20:39 03/19/17 20:39 03/19/17 20:39 03/19/17 20:39 03/19/17 20:39 - General well developed, no pain, obese - Respiratory normal respiratory effort - Abdomen Abdomen: tender (Right upper quadrant and right flank) Results - Labs 03/22/17 08:00 03/22/17 08:00 Abnormal Lab Results - Last 24 Hours (Table) 03/21/17 03/21/17 03/22/17 Range/Units 16:50 21:15 04:05 Glucose (74-99) mg/dL POC Glucose (mg/dL) 213 H 107 H 347 H (75-99) mg/dL Amylase (30-110) U/L 03/22/17 03/22/17 03/22/17 Range/Units 06:58 08:00 11:57 Glucose 162 H (74-99) mg/dL POC Glucose (mg/dL) 120 H 287 H (75-99) mg/dL Amylase <30 L (30-110) U/L Microbiology - Last 24 Hours (Table) 03/20/17 02:54 Blood Culture - Preliminary Blood No Growth after 48 hours 03/21/17 15:30 Stool for WBCs - Final Stool 03/21/17 15:30 Stool Culture - Preliminary Stool Diabetes panel 03/22/17 Range/Units 08:00 Sodium 140 (137-145) mmol/L Potassium 3.6 (3.5-5.1) mmol/L Chloride 105 (98-107) mmol/L Carbon Dioxide 23 (22-30) mmol/L BUN 11 (7-17) mg/dL Creatinine 0.64 (0.52-1.04) mg/dL Glucose 162 H (74-99) mg/dL Calcium 9.1 (8.4-10.2) mg/dL Calcium panel 03/22/17 Range/Units 08:00 Calcium 9.1 (8.4-10.2) mg/dL Pituitary panel 03/22/17 Range/Units 08:00 Sodium 140 (137-145) mmol/L Potassium 3.6 (3.5-5.1) mmol/L Chloride 105 (98-107) mmol/L Carbon Dioxide 23 (22-30) mmol/L BUN 11 (7-17) mg/dL Creatinine 0.64 (0.52-1.04) mg/dL Glucose 162 H (74-99) mg/dL Calcium 9.1 (8.4-10.2) mg/dL Adrenal panel 03/22/17 Range/Units 08:00 Sodium 140 (137-145) mmol/L Potassium 3.6 (3.5-5.1) mmol/L Chloride 105 (98-107) mmol/L Carbon Dioxide 23 (22-30) mmol/L BUN 11 (7-17) mg/dL Creatinine 0.64 (0.52-1.04) mg/dL Glucose 162 H (74-99) mg/dL Calcium 9.1 (8.4-10.2) mg/dL - Imaging CT scan - abdomen: image reviewed (The patient has a 6 x 7 mm calculus in the region of the right ureteral pelvic junction. Mild right hydronephrosis is noted) Assessment and Plan (1) Renal calculi Narrative/Plan: The patient has a 6 x 7 mm calculus at the right ureteropelvic junction. Unfortunately the calculus was not well visualized on a KUB and because of that and her obesity ESWL treatment of the calculus would not be a good treatment option. I discussed right ureteroscopy with lithotripsy for treatment of the stone but unfortunately due to my schedule this will not be able to be set up until sometime next week at the earliest. The patient could be discharged on oral analgesics and the surgery can be set up as an outpatient. Status: Acute
[2017-03-22 16:29] LABS: Glucose,Whole Blood 273 mg/dL (75-99)
--- NOTE | 2017-03-22 17:31 | PN ---
PROGRESS NOTE DATE OF SERVICE: 03/22/2017 This 41-year-old woman who was admitted with acute on chronic diarrhea, also complaining of right renal angle pain. The patient also had apparently had a new kidney stone. Patient had previous kidney stones also. No chest pain. No palpitations. EXAM: On exam, alert, oriented x3. Pulse 74, blood pressure 109/60, respirations 16, temp 97.2, pulse ox 98% on room air. HEENT: Conjunctivae normal. NECK: No jugular venous distention. CARDIOVASCULAR: S1, S2. RESPIRATORY: Breath sounds diminished at the bases. No rhonchi, no crackles. ABDOMEN: Soft, obese, mild diffuse discomfort. Pain in right renal angle present. NERVOUS SYSTEM: No focal deficits. LABS: CBC and CMP noted. ASSESSMENT: 1. Acute on chronic diarrhea, improving. 2. Right renal angle pain with nephrolithiasis. 3. Diabetes type 2. 4. Polycystic ovarian syndrome. 5. Attention deficit hyperactivity disorder. RECOMMENDATIONS AND DISCUSSION: I recommend to continue current medications and symptomatic treatment. Pain medications and neurology evaluation. Guarded prognosis because of multiple complex medical issues. Further recommendations to follow. The patient has seen Dr. Ortega previously according to her. further recommendations to follow. MMODL / IJN: [id number] /
[2017-03-22] MEDS: HYDROmorphone 0.5 MG/0.5 ML SYRINGE IVP PRN (19:58)
[2017-03-22 21:00] LABS: Glucose,Whole Blood 164 mg/dL (75-99)
[2017-03-22] MEDS: ONDANSETRON 4 MG/2 ML VIAL IVP PRN (22:33)
[2017-03-22] MEDS: LORATADINE 10 MG TAB PO SCH (22:35)
[2017-03-22] MEDS: LISINOPRIL 10 MG TAB PO SCH (22:35)
[2017-03-22] MEDS: PARoxetine 20 MG TAB PO SCH (22:35)
[2017-03-23] MEDS: LORazepam 1 MG TAB PO SCH ×2 (00:27→08:16)
[2017-03-23] MEDS: HYDROmorphone 0.5 MG/0.5 ML SYRINGE IVP PRN ×3 (00:27→10:19)
[2017-03-23] MEDS: oxyCODONE-APAP 10-325MG 1 EACH TAB PO PRN ×2 (02:15→08:16)
[2017-03-23] MEDS: cefTRIAXone 2,000 MG in SODIUM CHLORIDE 0.9% 100 ML IVPB SCH (03:21)
[2017-03-23 07:09] LABS: Glucose,Whole Blood 149 mg/dL (75-99)
[2017-03-23 07:37] VITALS: BP 137/80; PULSE 76; TEMP 98.5
[2017-03-23] MEDS: INSULIN LISPRO (humaLOG) 300 UNIT/3 ML VIAL SQ SCH ×2 (08:17→13:10)
[2017-03-23] MEDS: metroNIDAZOLE 500 MG TAB PO SCH (09:56)
[2017-03-23] MEDS: metFORMIN 500 MG TAB PO SCH (09:56)
[2017-03-23] MEDS: ENOXAPARIN 40 MG/0.4 ML SYRINGE SQ SCH (09:56)
[2017-03-23] MEDS: PANTOPRAZOLE 40 MG/10 ML VIAL IV SCH (10:26)
[2017-03-23 12:22] LABS: Glucose,Whole Blood 250 mg/dL (75-99)
--- NOTE | 2017-03-23 18:12 | P.DS ---
Providers Date of admission: 03/20/17 03:20 Attending physician: Bernardo Zhang Consults: 03/20/17 03:10 Consult Physician Stat Consulting Provider: [place] Crowder Consult Reason/Comments: Diarrhea for 3 weeks with a 20 pound weight loss Do you want consulting provider notified?: Yes 03/22/17 12:09 Consult Physician Urgent Consulting Provider: Malachi Ortega Consult Reason/Comments: Renal calcifications Do you want consulting provider notified?: Yes Primary care physician: Melchor [facility] Hospital Course: This 41-year-old woman with a past medical history multiple medical problems was admitted with acute on chronic diarrhea. The chronic diarrhea improved. The field radio operator planning outpatient follow-up and workup. Patient also complaining of right flank pain and new nephrolithiasis are detected. Patient was seen by urology. Please refer to the CAT scan report for further details. Urology recommended outpatient follow-up and possible intervention outpatient setting. Patient improved significantly. Patient be discharged in a stable condition with guarded prognosis with further plans to follow up with primary physician and as well as multiple consultations as mentioned earlier in the outpatient setting. On exam vitals stable. S1 and S2 normal. Abdomen soft mild tenderness over the renal angle. Nervous system no focal deficit. Final diagnosis 1. Acute on chronic diarrhea improved. 2. Right renal angle pain due to nephrolithiasis. 3. Diabetes was type II. 4. Polycystic obvious syndrome. 5. ADHD. Plan - Discharge Summary New Discharge Prescriptions: New Omeprazole [PriLOSEC] 20 mg PO AC-BID #30 cap metroNIDAZOLE [Flagyl] 500 mg PO Q8HR #12 tab Cefuroxime Axetil [Ceftin] 500 mg PO BID #8 tab Continue PARoxetine HCL [Paxil] 40 mg PO HS LORazepam [Ativan] 1 mg PO TID oxyCODONE HCL/ACETAMINOPHEN [Percocet 10-325 mg] 1 tab PO TID PRN PRN Reason: Pain Loratadine [Claritin] 10 mg PO HS Lisinopril [Zestril] 10 mg PO HS metFORMIN HCL 1,000 mg PO TID Discharge Medication List LORazepam [Ativan] 1 mg PO TID 03/01/16 [History] PARoxetine HCL [Paxil] 40 mg PO HS 03/01/16 [History] oxyCODONE HCL/ACETAMINOPHEN [Percocet 10-325 mg] 1 tab PO TID PRN 04/08/16 [ History] Lisinopril [Zestril] 10 mg PO HS 03/07/17 [History] Loratadine [Claritin] 10 mg PO HS 03/07/17 [History] metFORMIN HCL 1,000 mg PO TID 03/19/17 [History] Cefuroxime Axetil [Ceftin] 500 mg PO BID #8 tab 03/23/17 [Rx] Omeprazole [PriLOSEC] 20 mg PO AC-BID #30 cap 03/23/17 [Rx] metroNIDAZOLE [Flagyl] 500 mg PO Q8HR #12 tab 03/23/17 [Rx] Follow up Appointment(s)/Referral(s): Yanira Win MD [STAFF PHYSICIAN] - 03/29/17 3:00 pm Malachi Ortega MD [STAFF PHYSICIAN] - 04/02/17 8:20 am (With Nurse Practioner Rachel.) Melchor Stevens MD [Primary Care Provider] - 03/30/17 10:00 am (Please be prepared to pay outstanding balance.) Ambulatory/Diagnostic Orders: Complete Blood Count w/diff [LAB.AMB] Time Frame: 3 Days, Location: Determined By Patient Patient Instructions/Handouts: Kidney Stones (DC) Activity/Diet/Wound Care/Special Instructions: DIet:Consist. Carb accu cheks achs Activity: limited until follow up. Discharge Disposition: HOME SELF-CARE
[2017-03-24] MEDS ORDERED: PANTOPRAZOLE 40 MG TABLET PO SCH (07:30)
[2017-03-27 16:23] LABS: Cryptosporidium parvum Not detected (Not detected); Isospora belli Not detected (Not detected); Microsporidium Not detected (Not detected); Routine Ova and Parasites Not detected
== END 2017-03-23 14:33 | disposition home or self-care (01) | DRG 392 ==
LOC: EC 19:26 → 4MS4W 03-20 03:20 → 5MS5E 03-20 15:13
PROVIDERS: ADMIT Hospitalist; ATTEND Hospitalist
DX: K52.9 Noninfective gastroenteritis and colitis, unspecified (principal); Q61.3 Polycystic kidney, unspecified; N13.2 Hydronephrosis with renal and ureteral calculous obstruction; E87.5 Hyperkalemia; E11.9 Type 2 diabetes mellitus without complications; E28.2 Polycystic ovarian syndrome; E66.9 Obesity, unspecified; R31.0 Gross hematuria; F32.9 Major depressive disorder, single episode, unspecified; F41.9 Anxiety disorder, unspecified; G43.909 Migraine, unspecified, not intractable, without status migrainosus; F17.200 Nicotine dependence, unspecified, uncomplicated; F90.9 Attention-deficit hyperactivity disorder, unspecified type; Z79.84 Long term (current) use of oral hypoglycemic drugs; Z79.899 Other long term (current) drug therapy; Z87.442 Personal history of urinary calculi; Z87.892 Personal history of anaphylaxis; Z90.49 Acquired absence of other specified parts of digestive tract; Z90.710 Acquired absence of both cervix and uterus; Z86.010 Personal history of colon polyps; Z91.041 Radiographic dye allergy status; Z88.0 Allergy status to penicillin; Z88.2 Allergy status to sulfonamides; Z88.8 Allergy status to other drugs, medicaments and biological substances; Z91.018 Allergy to other foods
CPT/HCPCS: 36415; 74176; 80048; 80053; 81001; 81025; 82009; 82150; 83036; 83605; 83690; 83735; 85025; 87040; 87045; 87046; 87086; 87177; 87207; 87209; 89055; 96361; 96365; 96367; 96372; 96375; 96376; 99284; 99285

== ENCOUNTER 2017-03-25 14:28 | Emergency (ER) | payer OTHER ==
[2017-03-25] MEDS ORDERED: SODIUM CHLORIDE 0.9% 1,000 ML IV STA (14:49)
[2017-03-25] MEDS ORDERED: HYDROmorphone 1 MG/ML 1 ML SYRINGE IVP STA ×2 (14:49→17:10)
[2017-03-25] MEDS ORDERED: ONDANSETRON 4 MG/2 ML VIAL IVP STA (14:49)
--- NOTE | 2017-03-25 15:02 | ED ---
General Adult HPI - General Chief complaint: Abdominal Pain Stated complaint: POSS KIDNEY STONE Time Seen by Provider: 03/25/17 14:33 Source: patient, EMS, RN notes reviewed, old records reviewed Mode of arrival: EMS Limitations: no limitations - History of Present Illness Initial comments: Chief complaint history of present illness a 41-year-old female complaint of right flank pain. Patient was recently hospitalized for diarrhea and flank pain. CAT scan showed a 7 mm calcification at the right renal pelvis. Patient reports since discharge several days ago pain nausea vomiting. Patient kidney stones in the past. She has had lithotripsy in the past. She states her urologist at this stones The past and she has appointment to follow-up in the office in approximately 9 days. - Related Data Home Medications Medication Instructions Recorded Confirmed LORazepam [Ativan] 1 mg PO TID 03/01/16 03/25/17 PARoxetine HCL [Paxil] 40 mg PO HS 03/01/16 03/25/17 oxyCODONE HCL/ACETAMINOPHEN 1 tab PO TID PRN 04/08/16 03/25/17 [Percocet 10-325 mg] Lisinopril [Zestril] 10 mg PO HS 03/07/17 03/25/17 Loratadine [Claritin] 10 mg PO HS 03/07/17 03/25/17 metFORMIN HCL 1,000 mg PO TID 03/19/17 03/25/17 Previous Rx's Medication Instructions Recorded Cefuroxime Axetil [Ceftin] 500 mg PO BID #8 tab 03/23/17 Omeprazole [PriLOSEC] 20 mg PO AC-BID #30 cap 03/23/17 metroNIDAZOLE [Flagyl] 500 mg PO Q8HR #12 tab 03/23/17 Allergies Allergy/AdvReac Type Severity Reaction Status Date / Time bupropion HCl Allergy Rash/Hives Verified 03/25/17 15:34 [From Wellbutrin] Iodinated Contrast- Oral and Allergy Anaphylaxis Verified 03/25/17 15:34 IV Dye [Iodinated Contrast Media - IV Dye] orange juice [[place]] Allergy Rash/Hives Verified 03/25/17 15:34 Sulfa (Sulfonamide Allergy Rash/Hives Verified 03/25/17 15:34 Antibiotics) Penicillins AdvReac Nausea & Verified 03/25/17 15:34 Vomiting Review of Systems ROS Statement: Those systems with pertinent positive or pertinent negative responses have been documented in the HPI. Review of systems. No chest pain or shortness of breath she has right flank pain with nausea and vomiting. No reported neuro deficits. Persistent constant right flank pain radiating to the right groin area. Typical of kidney stones in the past Past medical problems [id number] diabetes mellitus, renal disease, recurrent multiple kidney stones. Colitis, hemorrhoids. Surgeries include bladder surgeries , cholecystectomy, hysterectomy, right ovarian cyst removal, family history noncontributory ALLERGIES as listed ROS Other: All systems not noted in ROS Statement are negative. 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 Pt states that about 6 months ago she started with skin discoloration L ankle that has increased in size-she saw a middle school technology teacher who prescibed antibiotic cream with no improvement-she also states the skin feels tight in that area and that her ankle now will occasionally "pop." History of Any Multi-Drug Resistant Organisms: None Reported Past Surgical History: Bladder Surgery, Section, Cholecystectomy, Hysterectomy, Orthopedic Surgery, Tubal Ligation Additional Past Surgical History / Comment(s): R ovarian cystectomy, laparoscopic surgery for L ovary that had attached to the bowel, total hysterectomy, D&C, x1, numerous lithotripsies, nephroscopies, cystoscopies and stents to ureters-none in place at this time, L robotic pyeloplasty with post op infection around kidney which then required a picc line and 8 weeks vancomycin (pt states was not MRSA), cervical injections, L rotator cuff repair, L wrist tendon surgery. Past Anesthesia/Blood Transfusion Reactions: No Reported Reaction Past Psychological History: ADD/ADHD, Anxiety, Depression Smoking Status: Current every day smoker - Past Family History Father Family Medical History: Coronary Artery Disease (CAD), CVA/TIA, Diabetes Mellitus, Renal Disease Additional Family Medical History / Comment(s): GLAUCOMA,NEUROPATHY HAD TRIPLE CABG, FROM RENAL FAILURE Mother Family Medical History: Coronary Artery Disease (CAD), Hyperlipidemia, Hypertension, Rheumatoid Arthritis (RA) Additional Family Medical History / Comment(s): DDD, HAD 3 vessel CABG AGE 53. General Exam - General Exam Comments Initial Comments: General: The patient is awake and alert, patient returns to the emergency room via EMS because of recurrent right flank pain typical of her kidney stone pain. Vital signs are temperature 98.6 pulse 82 respiratory rate 16 pulse ox 96% room air blood pressure 130/71 Eye: Pupils are equal, round and reactive to light, extra-ocular movements are intact ; there is normal conjunctiva bilaterally. No signs of icterus. Ears, nose, mouth and throat: There are moist mucous membranes, pharynx mildly red from vomiting. Neck: The neck is supple, there is no tenderness . Cardiovascular: There is a regular rate and rhythm. No murmur, rub or gallop is appreciated. Respiratory: Lungs are clear to auscultation, respirations are non-labored, breath sounds are equal. No wheezes, stridor, rales, or rhonchi. Gastrointestinal: Right flank pain radiating into the right lower quadrant. Typical of the patient's kidney stone pain in the past. Back: Right flank pain Musculoskeletal: No complaint of pain in the upper or lower extremities, full range of motion. Neurological: No neuro deficits. Skin: No rashes. Psychiatric: History of depression and anxiety. Patient did not place any feelings of depression Limitations: no limitations Course Vital Signs 03/25/17 03/25/17 03/25/17 14:30 15:11 15:35 Temperature 98.6 F Pulse Rate 82 82 83 Respiratory 16 16 16 Rate Blood Pressure 130/71 O2 Sat by Pulse 96 96 97 Oximetry 03/25/17 15:58 Temperature Pulse Rate 75 Respiratory 18 Rate Blood Pressure 130/71 O2 Sat by Pulse 97 Oximetry Medical Decision Making - Medical Decision Making Medical decision making the patient's white count is 10 hemoglobin 12 hematocrit 38. Potassium 3.9, BUN 9 creatinine 0.5 GFR greater than 60. Glucose 272. Plasma lactic acid 3.4 urine shows no signs of infection or RBCs. 2 views of the abdomen were done and reviewed by radiologist findings are a cholecystectomy clips reside within the right upper quadrant. No radiopaque calculi are seen. Scattered gas is seen in nondistended small bowel loops. Gas and fecal material is seen in the nondistended colon. There is no visceromegaly, pneumoperitoneum, or abnormal calcifications appreciated. Lung bases are clear and the osseous structures are intact. Slight(shaped scoliotic curvature of the thoracic lumbar spine is similar to the prior exam. Multiple phleboliths are noted within the lower pelvis. Impression nonobstructive bowel gas pattern. No radiopaque renal calculi. As read by Dr. Bernal On reexamination the patient states she is feeling better. I told her there was blood noted in the urine she stated initially was thought darker but the last one was a lot barrel cleaner. She states she is feeling better. The plan the patient will be following up with her own urologist. - Lab Data Result diagrams: 03/25/17 15:00 03/25/17 15:00 Lab Results 03/25/17 03/25/17 03/25/17 Range/Units 15:00 15:00 15:00 WBC 10.1 (3.8-10.6) k/uL RBC 4.22 (3.80-5.40) m/uL Hgb 12.8 (11.4-16.0) gm/dL Hct 38.7 (34.0-46.0) % MCV 91.7 (80.0-100.0) fL MCH 30.3 (25.0-35.0) pg MCHC 33.0 (31.0-37.0) g/dL RDW 14.2 (11.5-15.5) % Plt Count 232 (150-450) k/uL Neutrophils % 67 % Lymphocytes % 24 % Monocytes % 4 % Eosinophils % 2 % Basophils % 1 % Neutrophils # 6.8 (1.3-7.7) k/uL Lymphocytes # 2.5 (1.0-4.8) k/uL Monocytes # 0.4 (0-1.0) k/uL Eosinophils # 0.2 (0-0.7) k/uL Basophils # 0.1 (0-0.2) k/uL Sodium 139 (137-145) mmol/L Potassium 3.9 (3.5-5.1) mmol/L Chloride 107 (98-107) mmol/L Carbon Dioxide 20 L (22-30) mmol/L Anion Gap 12 mmol/L BUN 9 (7-17) mg/dL Creatinine 0.50 L (0.52-1.04) mg/dL Est GFR (MDRD) Af Amer >60 (>60 ml/min/1.73 sqM) Est GFR (MDRD) Non-Af >60 (>60 ml/min/1.73 sqM) Glucose 276 H (74-99) mg/dL Plasma Lactic Acid Brant 3.4 H* (0.7-2.0) mmol/L Calcium 9.0 (8.4-10.2) mg/dL Total Bilirubin 0.5 (0.2-1.3) mg/dL AST 27 (14-36) U/L ALT 50 (9-52) U/L Alkaline Phosphatase 90 (38-126) U/L Total Protein 6.1 L (6.3-8.2) g/dL Albumin 3.5 (3.5-5.0) g/dL Amylase <30 L (30-110) U/L Lipase 129 (23-300) U/L Urine Color Urine Appearance (Clear) Urine pH (5.0-8.0) Ur Specific [place] (1.001-1.035) Urine Protein (Negative) Urine Glucose (UA) (Negative) Urine Ketones (Negative) Urine Blood (Negative) Urine Nitrite (Negative) Urine Bilirubin (Negative) Urine Urobilinogen (<2.0) mg/dL Ur Leukocyte Esterase (Negative) 03/25/17 Range/Units 15:00 WBC (3.8-10.6) k/uL RBC (3.80-5.40) m/uL Hgb (11.4-16.0) gm/dL Hct (34.0-46.0) % MCV (80.0-100.0) fL MCH (25.0-35.0) pg MCHC (31.0-37.0) g/dL RDW (11.5-15.5) % Plt Count (150-450) k/uL Neutrophils % % Lymphocytes % % Monocytes % % Eosinophils % % Basophils % % Neutrophils # (1.3-7.7) k/uL Lymphocytes # (1.0-4.8) k/uL Monocytes # (0-1.0) k/uL Eosinophils # (0-0.7) k/uL Basophils # (0-0.2) k/uL Sodium (137-145) mmol/L Potassium (3.5-5.1) mmol/L Chloride (98-107) mmol/L Carbon Dioxide (22-30) mmol/L Anion Gap mmol/L BUN (7-17) mg/dL Creatinine (0.52-1.04) mg/dL Est GFR (MDRD) Af Amer (>60 ml/min/1.73 sqM) Est GFR (MDRD) Non-Af (>60 ml/min/1.73 sqM) Glucose (74-99) mg/dL Plasma Lactic Acid Brant (0.7-2.0) mmol/L Calcium (8.4-10.2) mg/dL Total Bilirubin (0.2-1.3) mg/dL AST (14-36) U/L ALT (9-52) U/L Alkaline Phosphatase (38-126) U/L Total Protein (6.3-8.2) g/dL Albumin (3.5-5.0) g/dL Amylase (30-110) U/L Lipase (23-300) U/L Urine Color Yellow Urine Appearance Clear (Clear) Urine pH 7.0 (5.0-8.0) Ur Specific [place] 1.023 (1.001-1.035) Urine Protein Negative (Negative) Urine Glucose (UA) 4+ H (Negative) Urine Ketones 1+ H (Negative) Urine Blood Negative (Negative) Urine Nitrite Negative (Negative) Urine Bilirubin Negative (Negative) Urine Urobilinogen <2.0 (<2.0) mg/dL Ur Leukocyte Esterase Negative (Negative) Disposition Clinical Impression: Renal colic on right side Disposition: HOME SELF-CARE Condition: Fair Instructions: Renal Colic (ED) Additional Instructions: Follow-up family physician and your urologist. Continue with home medications. Increase fluid intake. Referrals: Melchor Stevens MD [Primary Care Provider] - 1-2 days Time of Disposition: 17:11
[2017-03-25 15:21] LABS: Basophils # (A) 0.1 k/uL (0-0.2); Basophils % (A) 1 %; CH 31.2; CHCM 34.2; Eosinophils # (A) 0.2 k/uL (0-0.7); Eosinophils % (A) 2 %; HCT 38.7 % (34.0-46.0); HDW 2.45; HGB 12.8 gm/dL (11.4-16.0); Luc # (Auto) 0.16; Luc % (Auto) 2; Lymphocytes # (A) 2.5 k/uL (1.0-4.8); Lymphocytes % (A) 24 %; MCH 30.3 pg (25.0-35.0); MCV 91.7 fL (80.0-100.0); Mean Platelet Volume 7.7; Monocytes # (A) 0.4 k/uL (0-1.0); Monocytes % (A) 4 %; Neutrophils # (A) 6.8 k/uL (1.3-7.7); Neutrophils % (A) 67 %; RBC 4.22 m/uL (3.80-5.40); RDW 14.2 % (11.5-15.5); WBC 10.1 k/uL (3.8-10.6); WBC (Perox) 10.64
--- NOTE | 2017-03-25 15:28 | XR ---
EXAMINATION TYPE: XR abdomen 2V DATE OF EXAM: 03/25/2017 3:23 PM CLINICAL HISTORY: Right flank pain with history of nephrolithiasis. TECHNIQUE: Single supine KUB image of the abdomen is obtained. COMPARISON: None. FINDINGS: Cholecystectomy clips reside within the right upper quadrant. No radiopaque calculi are see n. Scattered gas is seen in non-distended small bowel loops. Gas and fecal material is seen in non-di stended colon. There is no visceromegaly, pneumoperitoneum, or abnormal calcification appreciated. Th e lung bases are clear and the osseous structures are intact. Slight S-shaped scoliotic curvature of the thoracolumbar spine is similar to the prior exam. Multiple phleboliths are noted within the low p melissa. IMPRESSION: 1. Nonobstructive bowel gas pattern. 2. No radiopaque renal calculi.
[2017-03-25 15:35] LABS: ALT 50 U/L (9-52); AST 27 U/L (14-36); Alkaline Phosphatase 90 U/L (38-126); Amylase <30 U/L (30-110); Anion Gap 12 mmol/L; Blood Urea Nitrogen 9 mg/dL (7-17); Carbon Dioxide 20 mmol/L (22-30); Chloride 107 mmol/L (98-107); Glucose 276 mg/dL (74-99); Non-African American GFR(MDRD) >60 (>60 ml/min/1.73 sqM); Potassium 3.9 mmol/L (3.5-5.1); Sodium 139 mmol/L (137-145); Total Bilirubin 0.5 mg/dL (0.2-1.3); Total Protein 6.1 g/dL (6.3-8.2)
[2017-03-25 15:45] LABS: Appearance,Urine Clear (Clear); Bilirubin,Urine Negative (Negative); Glucose,Urine (UA) 4+ (Negative); Ketones,Urine 1+ (Negative); Leukocyte Esterase,Urine Negative (Negative); Nitrite,Urine Negative (Negative); Protein,Urine Negative (Negative); Specific Gravity,Urine 1.023 (1.001-1.035); UA Billing (MACRO vs. MICRO) CHEM; Urobilinogen,Urine <2.0 mg/dL (<2.0)
[2017-03-25] MEDS ORDERED: SODIUM CHLORIDE 0.9% 1,000 ML IV ONE (15:50)
[2017-03-25 17:22] VITALS: BP 124/75; PULSE 82; RESP 16; TEMP 97.9
[2017-03-25] MEDS ORDERED: HYDROmorphone 0.5 MG/0.5 ML SYRINGE IVP STA (17:25)
== END 2017-03-25 17:29 | disposition home or self-care (01) ==
LOC: EC 14:28
DX: N23 Unspecified renal colic (principal); E11.9 Type 2 diabetes mellitus without complications; F32.9 Major depressive disorder, single episode, unspecified; F90.9 Attention-deficit hyperactivity disorder, unspecified type; F41.9 Anxiety disorder, unspecified; F17.200 Nicotine dependence, unspecified, uncomplicated; Z79.84 Long term (current) use of oral hypoglycemic drugs; Z79.899 Other long term (current) drug therapy; Z88.0 Allergy status to penicillin; Z88.2 Allergy status to sulfonamides; Z91.018 Allergy to other foods; Z91.041 Radiographic dye allergy status; Z88.8 Allergy status to other drugs, medicaments and biological substances; Z90.49 Acquired absence of other specified parts of digestive tract; Z90.710 Acquired absence of both cervix and uterus
CPT/HCPCS: 99285 ×2; 96374 ×2; 96375 ×3; 96361 ×3; 36415; 80053; 82150; 83605; 83690; 85025; 81003; 87086; 74020; J2405; J1170

== ENCOUNTER → 2017-03-28 | Outpatient (CLI) | payer OTHER | END | disposition home or self-care (01) | LOC: LABPAT 10:35 | PROVIDERS: ATTEND Urology | DX: N20.0 Calculus of kidney (principal) | CPT/HCPCS: 87086 ==

== ENCOUNTER 2017-03-31 02:55 | Emergency (ER) | payer OTHER ==
[2017-03-31] MEDS ORDERED: METOCLOPRAMIDE 5 MG/ML 2 ML VIAL IVP STA (03:14)
[2017-03-31] MEDS ORDERED: HYDROmorphone 1 MG/ML 1 ML SYRINGE IVP STA ×2 (03:14→04:16)
[2017-03-31] MEDS ORDERED: SODIUM CHLORIDE 0.9% 1,000 ML IV STA (03:14)
[2017-03-31] MEDS ORDERED: diphenhydrAMINE 50 MG/ML 1 ML VIAL IVP STA (03:14)
--- NOTE | 2017-03-31 03:17 | ED ---
Abdominal Pain HPI - General Chief Complaint: Abdominal Pain Stated Complaint: Possible Kidney Stone Time Seen by Provider: 03/31/17 03:04 Source: patient Mode of arrival: ambulatory Limitations: no limitations - History of Present Illness Initial Comments: 41-year-old female patient presents to emergency department [facility] with chief complaint of right flank pain. Patient states that she has a known 7 mm kidney stone on the right side. Patient states she is scheduled to have surgery with Dr. Ortega the urologist on 04/02/2017. States that she does have Percocet at home which has been managing her pain however for the last 24 hours it has not been helping. She states that the pain is a sharp stabbing pain in the right flank. She states that she has vomited 7 times due to the pain. States that she has now just dry heaving without any production of emesis. She denies any hematemesis. She states that she is not having any significant abdominal pain. She states she has been having loose stools. - Related Data Home Medications Medication Instructions Recorded Confirmed LORazepam [Ativan] 1 mg PO TID PRN 03/01/16 03/31/17 PARoxetine HCL [Paxil] 40 mg PO HS 03/01/16 03/31/17 oxyCODONE HCL/ACETAMINOPHEN 1 tab PO QID PRN 04/08/16 03/31/17 [Percocet 10-325 mg] Lisinopril [Zestril] 10 mg PO HS 03/07/17 03/31/17 Loratadine [Claritin] 10 mg PO HS 03/07/17 03/31/17 metFORMIN HCL 1,000 mg PO TID 03/19/17 03/31/17 Previous Rx's Medication Instructions Recorded Cefuroxime Axetil [Ceftin] 500 mg PO BID #8 tab 03/23/17 Omeprazole [PriLOSEC] 20 mg PO AC-BID #30 cap 03/23/17 metroNIDAZOLE [Flagyl] 500 mg PO Q8HR #12 tab 03/23/17 Allergies Allergy/AdvReac Type Severity Reaction Status Date / Time bupropion HCl Allergy Rash/Hives Verified 03/29/17 08:36 [From Wellbutrin] Iodinated Contrast- Oral and Allergy Anaphylaxis Verified 03/29/17 08:36 IV Dye [Iodinated Contrast Media - IV Dye] orange juice [[place]] Allergy Rash/Hives Verified 03/29/17 08:36 Sulfa (Sulfonamide Allergy Rash/Hives Verified 03/29/17 08:36 Antibiotics) Penicillins AdvReac Nausea & Verified 03/29/17 08:36 Vomiting Review of Systems ROS Statement: Those systems with pertinent positive or pertinent negative responses have been documented in the HPI. ROS Other: All systems not noted in ROS Statement are negative. Past Medical History Past Medical History: Diabetes Mellitus, Eye Disorder, Renal Disease Additional Past Medical History / Comment(s): Colitis, hemorrhoids, recurrent nephrolithiasis, polycystic kidney disorder, UTIs, demyelination in brain- headaches but less often now, bilateral astigmatism, mild lower DDD, pneumonia as a baby, allergic sinusistis, TMJ. Pt states that about 6 months ago she started with skin discoloration L ankle that has increased in size-she saw a invoice clerk who prescibed antibiotic cream with no improvement-she also states the skin feels tight in that area and that her ankle now will occasionally "pop." History of Any Multi-Drug Resistant Organisms: None Reported Past Surgical History: Bladder Surgery, Section, Cholecystectomy, Hysterectomy, Orthopedic Surgery, Tubal Ligation Additional Past Surgical History / Comment(s): R ovarian cystectomy, laparoscopic surgery for L ovary that had attached to the bowel, D&C, numerous lithotripsies, nephroscopies, cystoscopies and stents to ureters-none in place at this time, L robotic pyeloplasty with post op infection around kidney which then required a picc line/later removed (pt states was not MRSA), L rotator cuff repair, L wrist tendon surgery. Past Anesthesia/Blood Transfusion Reactions: Family History of Problems w/ Anesthesia Additional Past Anesthesia/Blood Transfusion Reaction / Comment(s): dad-hard time waking up due to enzyme problems in liver Past Psychological History: ADD/ADHD, Anxiety, Depression Smoking Status: Current every day smoker - Past Family History Brother(s) Family Medical History: Cancer Father Family Medical History: Coronary Artery Disease (CAD), CVA/TIA, Diabetes Mellitus, Renal Disease Additional Family Medical History / Comment(s): GLAUCOMA,NEUROPATHY HAD TRIPLE CABG, FROM RENAL FAILURE Mother Family Medical History: Hyperlipidemia Additional Family Medical History / Comment(s): DDD, HAD 3 vessel CABG AGE 53. General Exam Limitations: no limitations Course Vital Signs 03/31/17 03:00 Temperature 97.8 F Pulse Rate 98 Respiratory 18 Rate Blood Pressure 145/72 O2 Sat by Pulse 100 Oximetry Medical Decision Making - Medical Decision Making 41-year-old female patient presented for right flank pain. Known kidney stone 7 mm. Scheduled to have surgery with Dr. Miles 04/02/2017. Labs reviewed did show white blood cell count of 14.0, urinalysis did show trace protein, 3+ glucose, large amount of blood, small leukocyte esterase, red 155 red blood cells, 31 white blood cells, and rare mucous. Patient will be treated for urinary tract infection. Patient was given pain medications, IV fluids, nausea medication here in the department. She is feeling slightly improved. Neuro give her another dose of pain medication before discharge. She is instructed to follow-up with her primary care physician as well as her urologist as soon as possible. She is instructed return here immediately for any new, worsening, or concerning symptoms. She verbalizes understanding and agrees with this plan. - Lab Data Result diagrams: 03/31/17 03:30 03/31/17 03:30 Lab Results 03/31/17 03/31/17 03/31/17 Range/Units 03:30 03:30 03:30 WBC 14.0 H (3.8-10.6) k/uL RBC 4.62 (3.80-5.40) m/uL Hgb 13.6 (11.4-16.0) gm/dL Hct 41.8 (34.0-46.0) % MCV 90.4 (80.0-100.0) fL MCH 29.5 (25.0-35.0) pg MCHC 32.6 (31.0-37.0) g/dL RDW 14.5 (11.5-15.5) % Plt Count 336 (150-450) k/uL Neutrophils % 61 % Lymphocytes % 31 % Monocytes % 4 % Eosinophils % 3 % Basophils % 1 % Neutrophils # 8.5 H (1.3-7.7) k/uL Lymphocytes # 4.3 (1.0-4.8) k/uL Monocytes # 0.6 (0-1.0) k/uL Eosinophils # 0.4 (0-0.7) k/uL Basophils # 0.1 (0-0.2) k/uL Sodium 137 (137-145) mmol/L Potassium 3.7 (3.5-5.1) mmol/L Chloride 102 (98-107) mmol/L Carbon Dioxide 18 L (22-30) mmol/L Anion Gap 17 mmol/L BUN 7 (7-17) mg/dL Creatinine 0.60 (0.52-1.04) mg/dL Est GFR (MDRD) Af Amer >60 (>60 ml/min/1.73 sqM) Est GFR (MDRD) Non-Af >60 (>60 ml/min/1.73 sqM) Glucose 243 H (74-99) mg/dL Calcium 10.0 (8.4-10.2) mg/dL Total Bilirubin 0.6 (0.2-1.3) mg/dL AST 56 H (14-36) U/L ALT 63 H (9-52) U/L Alkaline Phosphatase 114 (38-126) U/L Total Protein 7.4 (6.3-8.2) g/dL Albumin 4.4 (3.5-5.0) g/dL Amylase 35 (30-110) U/L Lipase 205 (23-300) U/L Urine Color Yellow Urine Appearance Clear (Clear) Urine pH 5.5 (5.0-8.0) Ur Specific [place] 1.006 (1.001-1.035) Urine Protein Trace H (Negative) Urine Glucose (UA) 3+ H (Negative) Urine Ketones Negative (Negative) Urine Blood Large H (Negative) Urine Nitrite Negative (Negative) Urine Bilirubin Negative (Negative) Urine Urobilinogen <2.0 (<2.0) mg/dL Ur Leukocyte Esterase Small H (Negative) Urine RBC 155 H (0-5) /hpf Urine WBC 31 H (0-5) /hpf Ur Squamous Epith Cells 1 (0-4) /hpf Urine Mucus Rare H (None) /hpf Disposition Clinical Impression: Kidney stone, Urinary tract infection Disposition: HOME SELF-CARE Condition: Good Instructions: Kidney Stones (ED), Urinary Tract Infection in Women (ED) Additional Instructions: Increase fluids. Take home pain medications as directed. Follow-up with her primary care physician for recheck in one to days. Return here immediately for any new, worsening, or concerning symptoms. Referrals: Melchor Stevens MD [Primary Care Provider] - 1-2 days Malachi Ortega MD [STAFF PHYSICIAN] - 1-2 days Time of Disposition: 04:15
[2017-03-31 03:46] LABS: Basophils # (A) 0.1 k/uL (0-0.2); Basophils % (A) 1 %; CH 31.2; CHCM 34.7; Eosinophils # (A) 0.4 k/uL (0-0.7); Eosinophils % (A) 3 %; HCT 41.8 % (34.0-46.0); HDW 2.65; HGB 13.6 gm/dL (11.4-16.0); Luc # (Auto) 0.19; Luc % (Auto) 1; Lymphocytes # (A) 4.3 k/uL (1.0-4.8); Lymphocytes % (A) 31 %; MCH 29.5 pg (25.0-35.0); MCHC 32.6 g/dL (31.0-37.0); MCV 90.4 fL (80.0-100.0); Mean Platelet Volume 7.5; Monocytes # (A) 0.6 k/uL (0-1.0); Monocytes % (A) 4 %; Neutrophils # (A) 8.5 k/uL (1.3-7.7); Neutrophils % (A) 61 %; RBC 4.62 m/uL (3.80-5.40); RDW 14.5 % (11.5-15.5)
[2017-03-31 03:49] LABS: Appearance,Urine Clear (Clear); Bilirubin,Urine Negative (Negative); Glucose,Urine (UA) 3+ (Negative); Ketones,Urine Negative (Negative); Leukocyte Esterase,Urine Small (Negative); Mucus,Urine Rare /hpf; Nitrite,Urine Negative (Negative); PH, Urine 5.5 (5.0-8.0); Particle Count 1087; Protein,Urine Trace (Negative); RBC,Urine 155 /hpf (0-5); Specific Gravity,Urine 1.006 (1.001-1.035); Squamous Epithelial Cell,Urine 1 /hpf (0-4); UA Billing (MACRO vs. MICRO) MICRO; Urobilinogen,Urine <2.0 mg/dL (<2.0); WBC,Urine 31 /hpf (0-5)
[2017-03-31 03:56] LABS: ALT 63 U/L (9-52); AST 56 U/L (14-36); Alkaline Phosphatase 114 U/L (38-126); Amylase 35 U/L (30-110); Anion Gap 17 mmol/L; Blood Urea Nitrogen 7 mg/dL (7-17); Carbon Dioxide 18 mmol/L (22-30); Chloride 102 mmol/L (98-107); Glucose 243 mg/dL (74-99); Non-African American GFR(MDRD) >60 (>60 ml/min/1.73 sqM); Potassium 3.7 mmol/L (3.5-5.1); Sodium 137 mmol/L (137-145); Total Bilirubin 0.6 mg/dL (0.2-1.3); Total Protein 7.4 g/dL (6.3-8.2)
[2017-03-31 04:26] VITALS: BP 127/78; PULSE 70; RESP 16; TEMP 98
--- NOTE | 2017-04-03 04:37 | CDI ---
Documentation Clarification OP Dear Jennifer Medina, NPC Please do addendum to ED report for missing Physical examination. Thank you, Elizabeth Shen Electronic Security Specialist If you have any questions, please contact Agricultural Service Worker at [phone] [facility]
== END 2017-03-31 04:25 | disposition home or self-care (01) ==
LOC: EC 02:55
DX: N20.0 Calculus of kidney (principal); N39.0 Urinary tract infection, site not specified; E11.9 Type 2 diabetes mellitus without complications; Z90.49 Acquired absence of other specified parts of digestive tract; Z98.51 Tubal ligation status; Z90.710 Acquired absence of both cervix and uterus; Z79.899 Other long term (current) drug therapy; Z79.84 Long term (current) use of oral hypoglycemic drugs; Z88.8 Allergy status to other drugs, medicaments and biological substances; Z91.041 Radiographic dye allergy status; Z91.018 Allergy to other foods; Z88.2 Allergy status to sulfonamides; Z88.0 Allergy status to penicillin
CPT/HCPCS: 99284 ×2; 96374 ×2; 96375 ×3; 96376 ×2; 96361 ×2; 36415; 80053; 82150; 83690; 85025; 81001; J1200; J2765; J1170

== ENCOUNTER 2017-04-02 10:53 | Day surgery (SDC) | payer OTHER ==
[2017-03-29 08:45] VITALS: BMI 32.1
[~2017-04-02 10:53] MED LIST: DEXAMETHASONE SOD PHOSPHATE 10 MG/ML 1 ML VIAL IV ONE; LACTATED RINGERS 1,000 ML IV SCH; ONDANSETRON 4 MG/2 ML VIAL IVP ONE; Pre Op ABX Message 1 EACH MISC MISCELLANE ONE
[2017-04-02] MEDS ORDERED: LIDOCAINE 1% 20 ML VIAL (10MG/ML) FOR IV START INTRADERMA ONE (11:15)
[2017-04-02] MEDS ORDERED: INSULIN LISPRO (humaLOG) 300 UNIT/3 ML VIAL SQ ONE (11:24)
[2017-04-02 11:28] LABS: Glucose,Whole Blood 249 mg/dL (75-99)
[2017-04-02] MEDS ORDERED: fentaNYL (PF) 50 MCG/ML 2 ML AMP IV ONE (11:35)
[2017-04-02] MEDS ORDERED: DEXAMETHASONE SOD PHOS (MDV) 100 MG/10 ML VIAL ONE (12:32)
[2017-04-02] MEDS ORDERED: PROPOFOL 10 MG/ML 20 ML VIAL IV ONE (12:32)
[2017-04-02] MEDS ORDERED: HYDROmorphone (PF) 1 MG/ML ONE (12:32)
[2017-04-02] MEDS ORDERED: GLYCOPYRROLATE 0.2 MG/ML 2 ML VIAL ONE (12:32)
[2017-04-02] MEDS ORDERED: NEOSTIGMINE 1 MG/ML 10 ML VIAL ONE (12:32)
[2017-04-02] MEDS ORDERED: PHENYLEPHRINE-0.9% NACL SYG 1 MG/10 ML SYRINGE ONE (12:32)
[2017-04-02] MEDS ORDERED: MIDAZOLAM 2 MG/2 ML VIAL ONE (12:32)
[2017-04-02] MEDS ORDERED: fentaNYL (PF) 50 MCG/ML 2 ML AMP ONE (12:32)
[2017-04-02] MEDS ORDERED: SUCCINYLCHOLINE CHLORIDE 100 MG/5 ML SYR IV ONE (12:32)
[2017-04-02] MEDS ORDERED: LIDOCAINE 1% INJ 10MG/ML (20 ML MDV) ONE (12:32)
[2017-04-02] MEDS ORDERED: SODIUM CHLORIDE 0.9% 50 ML with ceFAZolin 1,000 MG IV ONE ×2 (12:40)
[2017-04-02] MEDS ORDERED: LACTATED RINGERS 1,000 ML IV ONE (13:10)
--- NOTE | 2017-04-02 13:44 | P.OP ---
Date of Procedure: 04/02/17 Preoperative Diagnosis: Right renal calculus Postoperative Diagnosis: Right renal calculus Anesthesia: FREDISA Surgeon: Malachi Ortega Estimated Blood Loss (ml): 0 Pathology: none sent Condition: stable Disposition: PACU Indications for Procedure: The patient is a 41-year-old female with a history of recurrent calcium oxalate kidney stones who recently developed right flank pain secondary to a 6 x 7 mm calculus in the region of the righturetero pelvic junction. Treatment options were reviewed and the patient has elected to proceed with right ureteroscopy with lithotripsy. Description of Procedure: The patient was taken to the operating suite where adequate general anesthesia via orotracheal intubation was instituted. The patient was placed in the dorsal lithotomy position on the fluoroscopy table. Sequential pneumatic compression stockings were applied to her lower legs. The perineum was prepped with Betadine soap and draped in a sterile fashion. The 17-Romanian cystoscope sheath with 30 lens was passed through the urethra and into the bladder. Both ureteral orifices were of normal location and configuration. A small amount of bloody urine drained from the right ureteral orifice. Clear urine drained from the left ureteral orifice. Bladder was free of tumor foreign body and diverticulum. A straight 0.035 Glidewire was advanced through the right ureteral orifice and up to the region of the proximal ureter. The cystoscope was withdrawn leaving the Glidewire in place. The flexible ureteroscope was advanced over the Glidewire and into the right ureter. The ureteroscope was advanced up to the region of the ureteropelvic junction under direct vision. The calculus which had been present at the ureteropelvic junction was displaced into the renal pelvis. It was then mobilized using the ureteroscope so that it was located in an upper pole calyx. The calculus was then broken down into multiple tiny fragments using the 200 laser fiber and the holmium laser initially at a setting of 2000 mJ and 30 cps. The fragments were reexamined and 1 fragment appeared to be larger then 1-1.5 mm. This fragment was then broken down into smaller fragments at a setting of 1000 mJ and 8 cps. At the completion of the procedure no fragment larger than 1-1.5 mm remained. The ureteroscope was withdrawn and the procedure was terminated The patient tolerated procedure well and left the operative room awake and in satisfactory condition. There was no blood loss. The patient be seen back in follow-up in 2 weeks.
[2017-04-02 13:46] VITALS: TEMP 98.3
--- NOTE | 2017-04-02 13:51 | FL ---
EXAMINATION TYPE: FL guidance operating room DATE OF EXAM: 04/02/2017 HISTORY: Flouroscopy time 15 seconds of fluoroscopy provided. IMPRESSION: 1. Fluoroscopy time.
[2017-04-02] MEDS ORDERED: KETOROLAC 30 MG/ML 1 ML VIAL IVP ONE (13:55)
[2017-04-02] MEDS: HYDROmorphone 0.5 MG/0.5 ML SYRINGE IVP PRN ×8 (13:55→14:40)
[2017-04-02] MEDS ORDERED: MIDAZOLAM 2 MG/2 ML VIAL IVP ONE (14:29)
[2017-04-02 14:52] VITALS: RESP 16
[2017-04-02 15:06] VITALS: PULSE 96
[2017-04-02 15:15] VITALS: BP 132/77
== END 2017-04-02 15:16 | disposition home or self-care (01) ==
LOC: OR 10:53
PROVIDERS: ATTEND Urology
DX: N20.0 Calculus of kidney (principal); E11.9 Type 2 diabetes mellitus without complications; Z79.84 Long term (current) use of oral hypoglycemic drugs; I10 Essential (primary) hypertension; F17.200 Nicotine dependence, unspecified, uncomplicated; Z82.49 Family history of ischemic heart disease and other diseases of the circulatory system; Z84.1 Family history of disorders of kidney and ureter; Z79.899 Other long term (current) drug therapy; Z91.041 Radiographic dye allergy status; Z88.0 Allergy status to penicillin; Z88.2 Allergy status to sulfonamides; Z88.8 Allergy status to other drugs, medicaments and biological substances; Z91.018 Allergy to other foods
CPT/HCPCS: 52353; C1769; J2250; J1100 ×2; J2710; J2405; J2001; J3010; J1885; J1170 ×2; J0690; J2370; J0330; J2704

== ENCOUNTER 2017-04-12 04:37 | Emergency (ER) | payer OTHER ==
[2017-04-12] MEDS ORDERED: SODIUM CHLORIDE 0.9% 1,000 ML IV ONE ×2 (05:08→06:48)
[2017-04-12] MEDS ORDERED: INSULIN REGULAR 100 UNIT/ML VIAL IV STA (05:08)
[2017-04-12 05:29] LABS: Glucose,Whole Blood 334 mg/dL (75-99)
[2017-04-12 05:30] LABS: Basophils # (A) 0.1 k/uL (0-0.2); Basophils % (A) 1 %; CH 31.1; CHCM 33.8; Eosinophils # (A) 0.4 k/uL (0-0.7); Eosinophils % (A) 3 %; HCT 41.9 % (34.0-46.0); HDW 2.58; HGB 13.6 gm/dL (11.4-16.0); Luc # (Auto) 0.18; Luc % (Auto) 1; Lymphocytes # (A) 3.8 k/uL (1.0-4.8); Lymphocytes % (A) 26 %; MCH 29.9 pg (25.0-35.0); MCHC 32.4 g/dL (31.0-37.0); MCV 92.5 fL (80.0-100.0); Mean Platelet Volume 7.3; Monocytes # (A) 0.7 k/uL (0-1.0); Monocytes % (A) 5 %; Neutrophils # (A) 9.4 k/uL (1.3-7.7); Neutrophils % (A) 65 %; RBC 4.54 m/uL (3.80-5.40); RDW 14.3 % (11.5-15.5); WBC 14.5 k/uL (3.8-10.6)
[2017-04-12 05:41] LABS: Appearance,Urine Cloudy (Clear); Bacteria,Urine Occasional /hpf; Bilirubin,Urine Negative (Negative); Glucose,Urine (UA) 3+ (Negative); Ketones,Urine Negative (Negative); Leukocyte Esterase,Urine Negative (Negative); Nitrite,Urine Negative (Negative); PH, Urine 5.5 (5.0-8.0); Particle Count 3255; Protein,Urine Negative (Negative); RBC,Urine 3 /hpf (0-5); Specific Gravity,Urine 1.002 (1.001-1.035); Squamous Epithelial Cell,Urine 1 /hpf (0-4); UA Billing (MACRO vs. MICRO) MICRO; Urobilinogen,Urine <2.0 mg/dL (<2.0); WBC,Urine 3 /hpf (0-5)
[2017-04-12 05:46] LABS: Anion Gap 21 mmol/L; Blood Urea Nitrogen 13 mg/dL (7-17); Calcium 10.4 mg/dL (8.4-10.2); Carbon Dioxide 15 mmol/L (22-30); Chloride 99 mmol/L (98-107); Glucose 368 mg/dL (74-99); Non-African American GFR(MDRD) >60 (>60 ml/min/1.73 sqM); Potassium 4.1 mmol/L (3.5-5.1); Sodium 135 mmol/L (137-145)
[2017-04-12 06:33] LABS: Glucose,Whole Blood 176 mg/dL (75-99)
[2017-04-12] MEDS ORDERED: HYDROcodone/APAP 7.5-325MG 1 EACH TAB PO ONE ×2 (06:48→07:44)
[2017-04-12] MEDS ORDERED: ONDANSETRON 4 MG/2 ML VIAL IVP STA (06:48)
--- NOTE | 2017-04-12 07:33 | ED ---
Back Pain HPI - General Chief Complaint: Back Pain/Injury Stated Complaint: Dizziness, muscle cramps, blood in urine Time Seen by Provider: 04/12/17 04:57 Source: patient Limitations: no limitations - History of Present Illness Initial Comments: This patient is a 41-year-old woman who presents with flank pain and hematuria. In addition the patient states that she believes her blood sugar has been high. Patient states that she recently had been on insulin but was changed back to metformin only and that her blood sugars bending running high since that time. MD Complaint: back pain Onset/Timin -: days(s) Similar Symptoms Previously: Yes Place: home Radiation: none Severity: severe Quality: stabbing Consistency: intermittent Improves With: none Worsens With: none Associated Symptoms: other (Hematuria) - Related Data Home Medications Medication Instructions Recorded Confirmed LORazepam [Ativan] 1 mg PO TID PRN 03/01/16 04/12/17 PARoxetine HCL [Paxil] 40 mg PO HS 03/01/16 04/12/17 oxyCODONE HCL/ACETAMINOPHEN 1 tab PO QID PRN 04/08/16 04/12/17 [Percocet 10-325 mg] Lisinopril [Zestril] 10 mg PO HS 03/07/17 04/12/17 Loratadine [Claritin] 10 mg PO HS 03/07/17 04/12/17 Previous Rx's Medication Instructions Recorded Insulin NPH/Reg Insulin 70/30 6 unit SQ AC-LUNCH vial 04/04/17 [humuLIN 70/30 VIAL] Insulin NPH/Reg Insulin 70/30 12 unit SQ AC-BID #1 vial 04/04/17 [humuLIN 70/30 VIAL] metFORMIN HCL 1,000 mg PO BID-W/MEALS #0 04/04/17 Allergies Allergy/AdvReac Type Severity Reaction Status Date / Time bupropion HCl Allergy Rash/Hives Verified 04/12/17 07:16 [From Wellbutrin] Iodinated Contrast- Oral and Allergy Anaphylaxis Verified 04/12/17 07:16 IV Dye [Iodinated Contrast Media - IV Dye] orange juice [Clio] Allergy Rash/Hives Verified 04/12/17 07:16 Sulfa (Sulfonamide Allergy Rash/Hives Verified 04/12/17 07:16 Antibiotics) Penicillins AdvReac Nausea & Verified 04/12/17 07:16 Vomiting Review of Systems ROS Statement: Those systems with pertinent positive or pertinent negative responses have been documented in the HPI. ROS Other: All systems not noted in ROS Statement are negative. Constitutional: Denies: fever, chills, weakness Respiratory: Denies: cough, dyspnea Cardiovascular: Denies: chest pain Gastrointestinal: Reports: abdominal pain (Flank pain). Denies: nausea, vomiting, diarrhea, melena, hematochezia Genitourinary: Reports: hematuria. 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 Pt states that about 6 months ago she started with skin discoloration L ankle that has increased in size-she saw a biomedical photographer who prescibed antibiotic cream with no improvement-she also states the skin feels tight in that area and that her ankle now will occasionally "pop." History of Any Multi-Drug Resistant Organisms: None Reported Past Surgical History: Bladder Surgery, Section, Cholecystectomy, Hysterectomy, Orthopedic Surgery, Tubal Ligation Additional Past Surgical History / Comment(s): R ovarian cystectomy, laparoscopic surgery for L ovary that had attached to the bowel, D&C, numerous lithotripsies, nephroscopies, cystoscopies and stents to ureters-none in place at this time, L robotic pyeloplasty with post op infection around kidney which then required a picc line/later removed (pt states was not MRSA), L rotator cuff repair, L wrist tendon surgery, lithotripsy Past Anesthesia/Blood Transfusion Reactions: Family History of Problems w/ Anesthesia Additional Past Anesthesia/Blood Transfusion Reaction / Comment(s): dad-hard time waking up due to enzyme problems in liver Past Psychological History: ADD/ADHD, Anxiety, Depression Smoking Status: Current every day smoker Past Alcohol Use History: None Reported Past Drug Use History: None Reported - Past Family History Brother(s) Family Medical History: Cancer Father Family Medical History: Coronary Artery Disease (CAD), CVA/TIA, Diabetes Mellitus, Renal Disease Additional Family Medical History / Comment(s): GLAUCOMA,NEUROPATHY HAD TRIPLE CABG, FROM RENAL FAILURE Mother Family Medical History: Hyperlipidemia Additional Family Medical History / Comment(s): DDD, HAD 3 vessel CABG AGE 53. General Exam Limitations: no limitations General appearance: alert, in no apparent distress Head exam: Present: atraumatic, normocephalic Eye exam: Present: normal appearance. Absent: scleral icterus, conjunctival injection ENT exam: Present: normal oropharynx Respiratory exam: Present: normal lung sounds bilaterally. Absent: respiratory distress, wheezes, rales, rhonchi, stridor Cardiovascular Exam: Present: normal rhythm, tachycardia (Rate 108 at my exam), normal heart sounds. Absent: systolic murmur, diastolic murmur, rubs, gallop GI/Abdominal exam: Present: soft. Absent: distended, tenderness, guarding, rebound, mass Extremities exam: Present: normal inspection, normal capillary refill. Absent: pedal edema, calf tenderness Back exam: Present: normal inspection. Absent: CVA tenderness (R), CVA tenderness (L) Neurological exam: Present: alert Skin exam: Present: warm, dry, intact, normal color. Absent: rash Course Vital Signs 04/12/17 04/12/17 04/12/17 04:56 05:47 06:32 Temperature 97.0 F L Pulse Rate 130 H 105 H 107 H Respiratory 22 18 18 Rate Blood Pressure 170/102 112/64 109/67 O2 Sat by Pulse 98 97 97 Oximetry 04/12/17 06:58 Temperature Pulse Rate 102 H Respiratory 18 Rate Blood Pressure 125/64 O2 Sat by Pulse 97 Oximetry Medical Decision Making - Lab Data Result diagrams: 04/12/17 05:10 04/12/17 05:10 Lab Results 04/12/17 04/12/17 04/12/17 Range/Units 04:54 05:04 05:10 WBC (3.8-10.6) k/uL RBC (3.80-5.40) m/uL Hgb (11.4-16.0) gm/dL Hct (34.0-46.0) % MCV (80.0-100.0) fL MCH (25.0-35.0) pg MCHC (31.0-37.0) g/dL RDW (11.5-15.5) % Plt Count (150-450) k/uL Neutrophils % % Lymphocytes % % Monocytes % % Eosinophils % % Basophils % % Neutrophils # (1.3-7.7) k/uL Lymphocytes # (1.0-4.8) k/uL Monocytes # (0-1.0) k/uL Eosinophils # (0-0.7) k/uL Basophils # (0-0.2) k/uL Sodium (137-145) mmol/L Potassium (3.5-5.1) mmol/L Chloride (98-107) mmol/L Carbon Dioxide (22-30) mmol/L Anion Gap mmol/L BUN (7-17) mg/dL Creatinine (0.52-1.04) mg/dL Est GFR (MDRD) Af Amer (>60 ml/min/1.73 sqM) Est GFR (MDRD) Non-Af (>60 ml/min/1.73 sqM) Glucose (74-99) mg/dL POC Glucose (mg/dL) 334 H (75-99) mg/dL POC Glu Harp Regulator ID Rk Dumont Calcium (8.4-10.2) mg/dL Urine Color Light Yellow Urine Appearance Cloudy H (Clear) Urine pH 5.5 (5.0-8.0) Ur Specific [place] 1.002 (1.001-1.035) Urine Protein Negative (Negative) Urine Glucose (UA) 3+ H (Negative) Urine Ketones Negative (Negative) Urine Blood Large H (Negative) Urine Nitrite Negative (Negative) Urine Bilirubin Negative (Negative) Urine Urobilinogen <2.0 (<2.0) mg/dL Ur Leukocyte Esterase Negative (Negative) Urine RBC 3 (0-5) /hpf Urine WBC 3 (0-5) /hpf Ur Squamous Epith Cells 1 (0-4) /hpf Urine Bacteria Occasional H (None) /hpf Acetone, Qual Negative (Negative) 04/12/17 04/12/17 04/12/17 Range/Units 05:10 05:10 06:29 WBC 14.5 H (3.8-10.6) k/uL RBC 4.54 (3.80-5.40) m/uL Hgb 13.6 (11.4-16.0) gm/dL Hct 41.9 (34.0-46.0) % MCV 92.5 (80.0-100.0) fL MCH 29.9 (25.0-35.0) pg MCHC 32.4 (31.0-37.0) g/dL RDW 14.3 (11.5-15.5) % Plt Count 390 (150-450) k/uL Neutrophils % 65 % Lymphocytes % 26 % Monocytes % 5 % Eosinophils % 3 % Basophils % 1 % Neutrophils # 9.4 H (1.3-7.7) k/uL Lymphocytes # 3.8 (1.0-4.8) k/uL Monocytes # 0.7 (0-1.0) k/uL Eosinophils # 0.4 (0-0.7) k/uL Basophils # 0.1 (0-0.2) k/uL Sodium 135 L (137-145) mmol/L Potassium 4.1 (3.5-5.1) mmol/L Chloride 99 (98-107) mmol/L Carbon Dioxide 15 L (22-30) mmol/L Anion Gap 21 mmol/L BUN 13 (7-17) mg/dL Creatinine 0.70 (0.52-1.04) mg/dL Est GFR (MDRD) Af Amer >60 (>60 ml/min/1.73 sqM) Est GFR (MDRD) Non-Af >60 (>60 ml/min/1.73 sqM) Glucose 368 H (74-99) mg/dL POC Glucose (mg/dL) 176 H (75-99) mg/dL POC Glu Harp Regulator ID WatMaria D flynn Calcium 10.4 H (8.4-10.2) mg/dL Urine Color Urine Appearance (Clear) Urine pH (5.0-8.0) Ur Specific [place] (1.001-1.035) Urine Protein (Negative) Urine Glucose (UA) (Negative) Urine Ketones (Negative) Urine Blood (Negative) Urine Nitrite (Negative) Urine Bilirubin (Negative) Urine Urobilinogen (<2.0) mg/dL Ur Leukocyte Esterase (Negative) Urine RBC (0-5) /hpf Urine WBC (0-5) /hpf Ur Squamous Epith Cells (0-4) /hpf Urine Bacteria (None) /hpf Acetone, Qual (Negative) Disposition Clinical Impression: Left flank pain, chronic, Hematuria, Hyperglycemia Disposition: HOME SELF-CARE Condition: Good Referrals: Melchor Stevens MD [Primary Care Provider] - 1-2 days
[2017-04-12 08:19] VITALS: BP 124/78; PULSE 104; RESP 20; TEMP 97.6
== END 2017-04-12 08:19 | disposition home or self-care (01) ==
LOC: EC 04:37
DX: E11.65 Type 2 diabetes mellitus with hyperglycemia (principal); G89.29 Other chronic pain; R10.9 Unspecified abdominal pain; R31.9 Hematuria, unspecified; F17.200 Nicotine dependence, unspecified, uncomplicated; F32.9 Major depressive disorder, single episode, unspecified; F41.9 Anxiety disorder, unspecified; F90.9 Attention-deficit hyperactivity disorder, unspecified type; Z91.041 Radiographic dye allergy status; Z91.018 Allergy to other foods; Z90.49 Acquired absence of other specified parts of digestive tract; Z90.710 Acquired absence of both cervix and uterus; Z98.51 Tubal ligation status; Z79.84 Long term (current) use of oral hypoglycemic drugs; Z79.899 Other long term (current) drug therapy; Z88.0 Allergy status to penicillin; Z88.2 Allergy status to sulfonamides; Z88.8 Allergy status to other drugs, medicaments and biological substances
CPT/HCPCS: 99284 ×2; 96374 ×2; 96361 ×3; 36415; 93005; 80048; 82009; 85025; 81001; J2405

== ENCOUNTER 2017-05-05 06:25 | Emergency (ER) | payer OTHER ==
[2017-05-05 06:33] VITALS: TEMP 97.3
[2017-05-05] MEDS ORDERED: MORPHINE SULFATE 10 MG/ML SYRINGE IV STA (06:45)
[2017-05-05] MEDS ORDERED: ONDANSETRON 4 MG/2 ML VIAL IVP STA (06:45)
[2017-05-05] MEDS ORDERED: SODIUM CHLORIDE 0.9% 1,000 ML IV STA ×3 (06:45→07:47)
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
[2017-05-05 07:01] LABS: Appearance,Urine Clear (Clear); Bilirubin,Urine Negative (Negative); Glucose,Urine (UA) Negative (Negative); Ketones,Urine Negative (Negative); Leukocyte Esterase,Urine Negative (Negative); Nitrite,Urine Negative (Negative); PH, Urine 5.5 (5.0-8.0); Particle Count 1202; Protein,Urine Negative (Negative); RBC,Urine 152 /hpf (0-5); Squamous Epithelial Cell,Urine 1 /hpf (0-4); UA Billing (MACRO vs. MICRO) MICRO; Urobilinogen,Urine <2.0 mg/dL (<2.0)
[2017-05-05 07:06] LABS: Basophils # (A) 0.1 k/uL (0-0.2); Basophils % (A) 1 %; CH 29.4; CHCM 33.9; Eosinophils # (A) 0.3 k/uL (0-0.7); Eosinophils % (A) 3 %; HCT 40.4 % (34.0-46.0); HDW 2.46; HGB 13.5 gm/dL (11.4-16.0); Luc # (Auto) 0.21; Luc % (Auto) 2; Lymphocytes # (A) 3.1 k/uL (1.0-4.8); Lymphocytes % (A) 34 %; MCH 29.2 pg (25.0-35.0); MCHC 33.6 g/dL (31.0-37.0); MCV 86.9 fL (80.0-100.0); Mean Platelet Volume 7.3; Monocytes # (A) 0.6 k/uL (0-1.0); Monocytes % (A) 6 %; Neutrophils # (A) 5.1 k/uL (1.3-7.7); Neutrophils % (A) 55 %; RBC 4.65 m/uL (3.80-5.40); RDW 14.1 % (11.5-15.5); WBC 9.4 k/uL (3.8-10.6)
[2017-05-05] MEDS ORDERED: diphenhydrAMINE 50 MG/ML 1 ML VIAL IVP STA (07:15)
[2017-05-05 07:16] LABS: ALT 53 U/L (9-52); AST 36 U/L (14-36); Alkaline Phosphatase 99 U/L (38-126); Amylase 78 U/L (30-110); Anion Gap 15 mmol/L; Blood Urea Nitrogen 10 mg/dL (7-17); Calcium 9.8 mg/dL (8.4-10.2); Carbon Dioxide 16 mmol/L (22-30); Chloride 107 mmol/L (98-107); Glucose 166 mg/dL (74-99); Non-African American GFR(MDRD) >60 (>60 ml/min/1.73 sqM); Sodium 138 mmol/L (137-145); Total Bilirubin 0.4 mg/dL (0.2-1.3); Total Protein 7.8 g/dL (6.3-8.2)
--- NOTE | 2017-05-05 07:19 | XR ---
EXAMINATION TYPE: XR KUB , 2 VIEWS DATE OF EXAM ORDERED: 05/05/2017 HISTORY: abdominal pain. COMPARISON: Previous study dated 03/16/2017. FINDINGS: There has been a previous cholecystectomy. The abdominal gas pattern is normal. There is no evidence of obstruction or free air. There are phleb oliths within the pelvis. IMPRESSION: NO ACUTE INTRA-ABDOMINAL ABNORMALITY.
[2017-05-05 07:22] LABS: Partial Thromboplastin Time 25.9 sec (22.0-30.0); Prothrombin Time 9.8 sec (9.0-12.0)
[2017-05-05] MEDS ORDERED: KETOROLAC 30 MG/ML 1 ML VIAL IVP STA (08:00)
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
[2017-05-05 09:26] VITALS: BP 129/75; PULSE 95; RESP 17
== END 2017-05-05 09:25 | disposition home or self-care (01) ==
LOC: EC 06:25
DX: N20.0 Calculus of kidney (principal); S30.1XXA Contusion of abdominal wall, initial encounter; R00.0 Tachycardia, unspecified; R11.10 Vomiting, unspecified; I10 Essential (primary) hypertension; F32.9 Major depressive disorder, single episode, unspecified; F41.9 Anxiety disorder, unspecified; F17.200 Nicotine dependence, unspecified, uncomplicated; Z79.899 Other long term (current) drug therapy; Z88.0 Allergy status to penicillin; Z88.2 Allergy status to sulfonamides; Z88.8 Allergy status to other drugs, medicaments and biological substances; Z91.018 Allergy to other foods; Z91.041 Radiographic dye allergy status; Z87.442 Personal history of urinary calculi; Z90.49 Acquired absence of other specified parts of digestive tract; X58.XXXA Exposure to other specified factors, initial encounter; Y93.39 Activity, other involving climbing, rappelling and jumping off
CPT/HCPCS: 99285; 96374; 96375 ×3; 96361 ×2; 36415; 80053; 82150; 83605; 83690; 85025; 85610; 85730; 81001; 81025; 87086; 74000; 76770; J1200; J2270; J2405; J1885

== ENCOUNTER 2017-05-06 18:49 | Emergency (ER) | payer OTHER ==
[2017-05-06] MEDS ORDERED: ONDANSETRON 4 MG/2 ML VIAL IVP STA (19:47)
[2017-05-06] MEDS ORDERED: HYDROmorphone 0.5 MG/0.5 ML SYRINGE IVP STA (19:47)
[2017-05-06] MEDS ORDERED: SODIUM CHLORIDE 0.9% 500 ML IV STA (19:47)
--- NOTE | 2017-05-06 19:58 | ED ---
Abdominal Pain HPI - General Chief Complaint: Abdominal Pain Stated Complaint: Abd Pain Time Seen by Provider: 05/06/17 19:34 Source: patient Mode of arrival: ambulatory Limitations: no limitations - History of Present Illness Initial Comments: 41-year-old female patient presents to the emergency department today for evaluation of right lower quadrant abdominal pain. Patient states that this pain started for her a couple of days ago but has worsened today. She states that the pain is a deep, intense, ache. Patient states she has several episodes of vomiting with this today. States that her temperature was as high as 101.4 yesterday. She states he has been taking ibuprofen and Percocet for pain today which has kept her fever down. She does have a history of chronic abdominal pain and flank pain however she states that this is very different for her. She states she has also been having diarrhea for the last couple of weeks which is not new. She denies any hematochezia or melena. She denies any hematemesis. Patient states that she was seen and evaluated here yesterday morning for flank pain after a traumatic injury and was told that she has mild pancreatitis that was improving. She is unsure if this is related to her current pain. Patient denies any recent rash, shortness breath, chest pain, back pain, numbness, tingling, dizziness, weakness, dysuria, urinary urgency, urinary frequency, headache, visual changes, or any other complaints. Patient does have hematuria and flank pain, but states that this is chronic and she is not concerned about this. - Related Data Home Medications Medication Instructions Recorded Confirmed LORazepam [Ativan] 1 mg PO TID PRN 03/01/16 05/06/17 PARoxetine HCL [Paxil] 40 mg PO HS 03/01/16 05/06/17 oxyCODONE HCL/ACETAMINOPHEN 1 tab PO TID PRN 04/08/16 05/06/17 [Percocet 10-325 mg] Lisinopril [Zestril] 10 mg PO HS 03/07/17 05/06/17 Loratadine [Claritin] 10 mg PO HS 03/07/17 05/06/17 SUMAtriptan SUCCINATE [Imitrex] 100 mg PO DAILY PRN 04/25/17 05/06/17 Ibuprofen [Motrin] 600 mg PO BID PRN 05/06/17 05/06/17 Insulin Glargine,Hum.rec.anlog 15 unit SQ HS 05/06/17 05/06/17 [Basaglar Kwikpen U-100] Insulin Glulisine [Apidra Solostar] 5 unit SQ TID 05/06/17 05/06/17 Previous Rx's Medication Instructions Recorded metFORMIN HCL 1,000 mg PO BID-W/MEALS #0 04/04/17 Allergies Allergy/AdvReac Type Severity Reaction Status Date / Time bupropion HCl Allergy Rash/Hives Verified 05/06/17 19:35 [From Wellbutrin] Iodinated Contrast- Oral and Allergy Anaphylaxis Verified 05/06/17 19:35 IV Dye [Iodinated Contrast Media - IV Dye] orange juice [[place]] Allergy Rash/Hives Verified 05/06/17 19:35 Sulfa (Sulfonamide Allergy Rash/Hives Verified 05/06/17 19:35 Antibiotics) Penicillins AdvReac Nausea & Verified 05/06/17 19:35 Vomiting Review of Systems ROS Statement: Those systems with pertinent positive or pertinent negative responses have been documented in the HPI. ROS Other: All systems not noted in ROS Statement are negative. 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 Pt states that about 6 months ago she started with skin discoloration L ankle that has increased in size-she saw a fire support specialist who prescibed antibiotic cream with no improvement-she also states the skin feels tight in that area and that her ankle now will occasionally "pop." History of Any Multi-Drug Resistant Organisms: None Reported Past Surgical History: Bladder Surgery, Section, Cholecystectomy, Hysterectomy, Orthopedic Surgery, Tubal Ligation Additional Past Surgical History / Comment(s): R ovarian cystectomy, laparoscopic surgery for L ovary that had attached to the bowel, D&C, numerous lithotripsies, nephroscopies, cystoscopies and stents to ureters-none in place at this time, L robotic pyeloplasty with post op infection around kidney which then required a picc line/later removed (pt states was not MRSA), L rotator cuff repair, L wrist tendon surgery, lithotripsy Past Anesthesia/Blood Transfusion Reactions: Family History of Problems w/ Anesthesia Additional Past Anesthesia/Blood Transfusion Reaction / Comment(s): dad-hard time waking up due to enzyme problems in liver Past Psychological History: ADD/ADHD, Anxiety, Depression Smoking Status: Current every day smoker Past Alcohol Use History: None Reported Past Drug Use History: None Reported - Past Family History Brother(s) Family Medical History: Cancer Father Family Medical History: Coronary Artery Disease (CAD), CVA/TIA, Diabetes Mellitus, Renal Disease Additional Family Medical History / Comment(s): GLAUCOMA,NEUROPATHY HAD TRIPLE CABG, FROM RENAL FAILURE Mother Family Medical History: Hyperlipidemia Additional Family Medical History / Comment(s): DDD, HAD 3 vessel CABG AGE 53. General Exam Limitations: no limitations General appearance: alert, in no apparent distress, other (This is a well- developed, well-nourished adult female patient in no acute distress. Vital signs upon presentation were temperature 97.8F, pulse 122, respirations 20, blood pressure 124/73, pulse ox 98% on room air.) Eye exam: Present: normal appearance, PERRL, EOMI. Absent: scleral icterus, conjunctival injection, periorbital swelling ENT exam: Present: normal exam, normal oropharynx, mucous membranes moist Neck exam: Present: normal inspection. Absent: tenderness, meningismus, lymphadenopathy Respiratory exam: Present: normal lung sounds bilaterally. Absent: respiratory distress, wheezes, rales, rhonchi, stridor Cardiovascular Exam: Present: regular rate, normal rhythm, normal heart sounds. Absent: systolic murmur, diastolic murmur, rubs, gallop, clicks GI/Abdominal exam: Present: soft, normal bowel sounds, other (Denies nontender, no guarding, no rebound tenderness.). Absent: distended, tenderness, guarding, rebound, rigid Extremities exam: Present: normal inspection, full ROM, normal capillary refill. Absent: tenderness, pedal edema, joint swelling, calf tenderness Back exam: Present: normal inspection, CVA tenderness (R), CVA tenderness (L) Neurological exam: Present: alert, oriented X3, CN II-XII intact Psychiatric exam: Present: normal affect, normal mood Skin exam: Present: warm, dry, intact, normal color. Absent: rash Course Vital Signs 05/06/17 05/06/17 05/06/17 19:10 21:09 21:35 Temperature 97.8 F 98.1 F Pulse Rate 122 H 108 H 107 H Respiratory 20 20 18 Rate Blood Pressure 124/73 125/60 132/59 O2 Sat by Pulse 98 99 97 Oximetry 05/06/17 23:00 Temperature 97.9 F Pulse Rate 93 Respiratory 18 Rate Blood Pressure 129/60 O2 Sat by Pulse 96 Oximetry Medical Decision Making - Medical Decision Making 41-year-old female patient presented to the emergency department today for complaints of abdominal pain and vomiting. Physical exam was unremarkable, no abdominal tenderness, guarding, or rebound was noted. No peritoneal signs. Labs reviewed and did show an elevated lactic acid at 2.4. We did administer IV fluids here in the department. Elevated white blood cell count or fever noted here today. Urinalysis did show cloudy appearance with trace protein, large blood, greater than 182 red blood cells, 9 squamous epithelial cells, and rare mucous. Urinalysis is consistent with patient's known history of kidney stones. Patient was given IV fluids, nausea medication, and pain medication here in the department. She is feeling better at this time. She does have an appointment with her primary care physician tomorrow. We will discharge her at this time her follow-up with him for further evaluation. She is instructed to return here immediately should her symptoms worsen, she develop any new or concerning symptoms. She verbalizes understanding and agrees with this plan. - Lab Data Result diagrams: 05/06/17 19:50 05/06/17 19:50 Lab Results 05/06/17 05/06/17 05/06/17 Range/Units 19:50 19:50 20:01 WBC 9.4 (3.8-10.6) k/uL RBC 4.31 (3.80-5.40) m/uL Hgb 12.7 (11.4-16.0) gm/dL Hct 37.7 (34.0-46.0) % MCV 87.4 (80.0-100.0) fL MCH 29.5 (25.0-35.0) pg MCHC 33.7 (31.0-37.0) g/dL RDW 13.8 (11.5-15.5) % Plt Count 330 (150-450) k/uL Neutrophils % 53 % Lymphocytes % 34 % Monocytes % 7 % Eosinophils % 3 % Basophils % 1 % Neutrophils # 5.0 (1.3-7.7) k/uL Lymphocytes # 3.2 (1.0-4.8) k/uL Monocytes # 0.6 (0-1.0) k/uL Eosinophils # 0.3 (0-0.7) k/uL Basophils # 0.1 (0-0.2) k/uL Sodium 139 (137-145) mmol/L Potassium 4.2 (3.5-5.1) mmol/L Chloride 107 (98-107) mmol/L Carbon Dioxide 20 L (22-30) mmol/L Anion Gap 12 mmol/L BUN 12 (7-17) mg/dL Creatinine 0.70 (0.52-1.04) mg/dL Est GFR (MDRD) Af Amer >60 (>60 ml/min/1.73 sqM) Est GFR (MDRD) Non-Af >60 (>60 ml/min/1.73 sqM) Glucose 185 H (74-99) mg/dL Lactic Ac Sepsis Rflx Plasma Lactic Acid Brant 2.4 H* (0.7-2.0) mmol/L Calcium 9.6 (8.4-10.2) mg/dL Total Bilirubin 0.3 (0.2-1.3) mg/dL AST 25 (14-36) U/L ALT 52 (9-52) U/L Alkaline Phosphatase 94 (38-126) U/L Total Protein 6.7 (6.3-8.2) g/dL Albumin 4.0 (3.5-5.0) g/dL Amylase 47 (30-110) U/L Lipase 232 (23-300) U/L Urine Color Urine Appearance (Clear) Urine pH (5.0-8.0) Ur Specific [place] (1.001-1.035) Urine Protein (Negative) Urine Glucose (UA) (Negative) Urine Ketones (Negative) Urine Blood (Negative) Urine Nitrite (Negative) Urine Bilirubin (Negative) Urine Urobilinogen (<2.0) mg/dL Ur Leukocyte Esterase (Negative) Urine RBC (0-5) /hpf Ur Squamous Epith Cells (0-4) /hpf Urine Mucus (None) /hpf 05/06/17 05/06/17 Range/Units 20:34 20:40 WBC (3.8-10.6) k/uL RBC (3.80-5.40) m/uL Hgb (11.4-16.0) gm/dL Hct (34.0-46.0) % MCV (80.0-100.0) fL MCH (25.0-35.0) pg MCHC (31.0-37.0) g/dL RDW (11.5-15.5) % Plt Count (150-450) k/uL Neutrophils % % Lymphocytes % % Monocytes % % Eosinophils % % Basophils % % Neutrophils # (1.3-7.7) k/uL Lymphocytes # (1.0-4.8) k/uL Monocytes # (0-1.0) k/uL Eosinophils # (0-0.7) k/uL Basophils # (0-0.2) k/uL Sodium (137-145) mmol/L Potassium (3.5-5.1) mmol/L Chloride (98-107) mmol/L Carbon Dioxide (22-30) mmol/L Anion Gap mmol/L BUN (7-17) mg/dL Creatinine (0.52-1.04) mg/dL Est GFR (MDRD) Af Amer (>60 ml/min/1.73 sqM) Est GFR (MDRD) Non-Af (>60 ml/min/1.73 sqM) Glucose (74-99) mg/dL Lactic Ac Sepsis Rflx Y Plasma Lactic Acid Brant (0.7-2.0) mmol/L Calcium (8.4-10.2) mg/dL Total Bilirubin (0.2-1.3) mg/dL AST (14-36) U/L ALT (9-52) U/L Alkaline Phosphatase (38-126) U/L Total Protein (6.3-8.2) g/dL Albumin (3.5-5.0) g/dL Amylase (30-110) U/L Lipase (23-300) U/L Urine Color Yellow Urine Appearance Cloudy H (Clear) Urine pH 5.5 (5.0-8.0) Ur Specific [place] 1.016 (1.001-1.035) Urine Protein Trace H (Negative) Urine Glucose (UA) Negative (Negative) Urine Ketones Negative (Negative) Urine Blood Large H (Negative) Urine Nitrite Negative (Negative) Urine Bilirubin Negative (Negative) Urine Urobilinogen <2.0 (<2.0) mg/dL Ur Leukocyte Esterase Negative (Negative) Urine RBC >182 H (0-5) /hpf Ur Squamous Epith Cells 9 H (0-4) /hpf Urine Mucus Rare H (None) /hpf - Radiology Data Radiology results: report reviewed, image reviewed KUB x-ray of the abdomen shows a couple of air-fluid levels within the ascending coaling region. Differential air fluid levels are present. Suspect margins are normal. No organomegaly is present. Surgical clips are in the right upper quadrant. No free air is evident. Impression by Dr. Nieto shows nonspecific abdomen. Disposition Clinical Impression: Abdominal pain Disposition: HOME SELF-CARE Condition: Good Instructions: Abdominal Pain (ED) Additional Instructions: Increase fluids. Continue home medications as directed. Keep her appointment with her primary care physician tomorrow. Return here immediately for any new, worsening, or concerning symptoms. Referrals: Melchor Stevens MD [Primary Care Provider] - 1-2 days Time of Disposition: 22:35
[2017-05-06 20:07] LABS: Basophils # (A) 0.1 k/uL (0-0.2); Basophils % (A) 1 %; CH 29.1; CHCM 33.5; Eosinophils # (A) 0.3 k/uL (0-0.7); Eosinophils % (A) 3 %; HCT 37.7 % (34.0-46.0); HDW 2.49; HGB 12.7 gm/dL (11.4-16.0); Luc # (Auto) 0.25; Luc % (Auto) 3; Lymphocytes # (A) 3.2 k/uL (1.0-4.8); Lymphocytes % (A) 34 %; MCH 29.5 pg (25.0-35.0); MCHC 33.7 g/dL (31.0-37.0); MCV 87.4 fL (80.0-100.0); Mean Platelet Volume 7.3; Monocytes # (A) 0.6 k/uL (0-1.0); Monocytes % (A) 7 %; Neutrophils % (A) 53 %; RBC 4.31 m/uL (3.80-5.40); RDW 13.8 % (11.5-15.5); WBC 9.4 k/uL (3.8-10.6); WBC (Perox) 9.52
[2017-05-06 20:17] LABS: ALT 52 U/L (9-52); AST 25 U/L (14-36); Alkaline Phosphatase 94 U/L (38-126); Amylase 47 U/L (30-110); Anion Gap 12 mmol/L; Blood Urea Nitrogen 12 mg/dL (7-17); Calcium 9.6 mg/dL (8.4-10.2); Carbon Dioxide 20 mmol/L (22-30); Chloride 107 mmol/L (98-107); Glucose 185 mg/dL (74-99); Non-African American GFR(MDRD) >60 (>60 ml/min/1.73 sqM); Potassium 4.2 mmol/L (3.5-5.1); Sodium 139 mmol/L (137-145); Total Bilirubin 0.3 mg/dL (0.2-1.3); Total Protein 6.7 g/dL (6.3-8.2)
[2017-05-06] MEDS ORDERED: SODIUM CHLORIDE 0.9% 500 ML IV ONE (20:44)
[2017-05-06 21:01] LABS: Appearance,Urine Cloudy (Clear); Bilirubin,Urine Negative (Negative); Glucose,Urine (UA) Negative (Negative); Ketones,Urine Negative (Negative); Leukocyte Esterase,Urine Negative (Negative); Mucus,Urine Rare /hpf; Nitrite,Urine Negative (Negative); PH, Urine 5.5 (5.0-8.0); Particle Count 6180; Protein,Urine Trace (Negative); RBC,Urine >182 /hpf (0-5); Specific Gravity,Urine 1.016 (1.001-1.035); Squamous Epithelial Cell,Urine 9 /hpf (0-4); UA Billing (MACRO vs. MICRO) MICRO; Urobilinogen,Urine <2.0 mg/dL (<2.0)
--- NOTE | 2017-05-06 21:15 | XR ---
EXAMINATION TYPE: XR KUB DATE OF EXAM: 05/06/2017 COMPARISON: 05/05/2017 INDICATION: Abdominal pain TECHNIQUE: Single view abdomen upright view FINDINGS: There is within the colon. Couple of air-fluid levels may be within the ascending colon region. Diffe rential air-fluid levels are not present. Psoas margins are normal. No organomegaly is present. Surgical clips are in the right upper quadrant. No free air is evident. IMPRESSION: 1. Nonspecific abdomen.
[2017-05-06] MEDS ORDERED: HYDROmorphone 1 MG/ML 1 ML SYRINGE IVP STA (21:24)
[2017-05-06 21:36] VITALS: RESP 18
[2017-05-06] MEDS ORDERED: diphenhydrAMINE 25 MG CAP PO STA (22:35)
[2017-05-06 23:02] VITALS: BP 129/60; PULSE 93; TEMP 97.9
== END 2017-05-06 23:02 | disposition home or self-care (01) ==
LOC: EC 18:49
DX: R10.31 Right lower quadrant pain (principal); R11.10 Vomiting, unspecified; R19.7 Diarrhea, unspecified; E11.9 Type 2 diabetes mellitus without complications; I10 Essential (primary) hypertension; Z90.49 Acquired absence of other specified parts of digestive tract; Z98.51 Tubal ligation status; Z90.710 Acquired absence of both cervix and uterus; F41.9 Anxiety disorder, unspecified; F32.9 Major depressive disorder, single episode, unspecified; F17.200 Nicotine dependence, unspecified, uncomplicated; Z79.4 Long term (current) use of insulin; Z79.899 Other long term (current) drug therapy; Z88.8 Allergy status to other drugs, medicaments and biological substances; Z91.041 Radiographic dye allergy status; Z91.018 Allergy to other foods; Z88.2 Allergy status to sulfonamides; Z88.0 Allergy status to penicillin
CPT/HCPCS: 99284; 96374; 96375; 96376; 96361 ×2; 36415; 80053; 82150; 83605; 83690; 85025; 81001; 87040; 74000; J2405; J1170 ×2

== ENCOUNTER 2017-05-07 14:35 | Emergency (ER) | payer OTHER ==
[2017-05-07 14:51] VITALS: TEMP 98.2
[2017-05-07] MEDS ORDERED: SODIUM CHLORIDE 0.9% 1,000 ML IV STA ×2 (15:15)
[2017-05-07] MEDS ORDERED: ONDANSETRON 4 MG/2 ML VIAL IVP STA (15:15)
[2017-05-07] MEDS ORDERED: HYDROmorphone 1 MG/ML 1 ML SYRINGE IVP STA (15:15)
[2017-05-07] MEDS ORDERED: LORazepam 2 MG/ML INJ IV STA (15:16)
[2017-05-07] MEDS ORDERED: diphenhydrAMINE 50 MG/ML 1 ML VIAL IVP STA (15:16)
[2017-05-07 15:34] LABS: Basophils # (A) 0.1 k/uL (0-0.2); Basophils % (A) 1 %; CH 28.9; CHCM 33.5; Eosinophils # (A) 0.3 k/uL (0-0.7); Eosinophils % (A) 3 %; HCT 37.7 % (34.0-46.0); HDW 2.53; HGB 12.6 gm/dL (11.4-16.0); Luc # (Auto) 0.24; Luc % (Auto) 2; Lymphocytes # (A) 3.2 k/uL (1.0-4.8); Lymphocytes % (A) 31 %; MCHC 33.5 g/dL (31.0-37.0); MCV 86.7 fL (80.0-100.0); Mean Platelet Volume 7.3; Monocytes # (A) 0.5 k/uL (0-1.0); Monocytes % (A) 5 %; Neutrophils # (A) 6.1 k/uL (1.3-7.7); Neutrophils % (A) 58 %; RBC 4.34 m/uL (3.80-5.40); RDW 13.8 % (11.5-15.5); WBC 10.4 k/uL (3.8-10.6)
[2017-05-07 15:46] LABS: Appearance,Urine Clear (Clear); Bilirubin,Urine Negative (Negative); Glucose,Urine (UA) Negative (Negative); Ketones,Urine Negative (Negative); Leukocyte Esterase,Urine Negative (Negative); Mucus,Urine Rare /hpf; Nitrite,Urine Negative (Negative); PH, Urine 5.5 (5.0-8.0); Particle Count 5383; Protein,Urine 1+ (Negative); RBC,Urine 16 /hpf (0-5); Specific Gravity,Urine 1.003 (1.001-1.035); Squamous Epithelial Cell,Urine <1 /hpf (0-4); UA Billing (MACRO vs. MICRO) MICRO; Urobilinogen,Urine <2.0 mg/dL (<2.0); WBC,Urine 5 /hpf (0-5)
[2017-05-07 15:49] LABS: ALT 57 U/L (9-52); AST 41 U/L (14-36); Alkaline Phosphatase 105 U/L (38-126); Anion Gap 15 mmol/L; Blood Urea Nitrogen 8 mg/dL (7-17); Carbon Dioxide 19 mmol/L (22-30); Chloride 106 mmol/L (98-107); Glucose 205 mg/dL (74-99); Magnesium 1.6 mg/dL (1.6-2.3); Non-African American GFR(MDRD) >60 (>60 ml/min/1.73 sqM); Phosphorus 3.7 mg/dL (2.5-4.5); Potassium 3.9 mmol/L (3.5-5.1); Sodium 140 mmol/L (137-145); Total Bilirubin 0.5 mg/dL (0.2-1.3)
[2017-05-07 15:52] VITALS: BP 122/72; PULSE 107; RESP 18
[2017-05-07 16:04] LABS: Creatine Kinase MB 0.4 ng/mL (0.0-2.4)
--- NOTE | 2017-05-07 16:05 | ED ---
General Adult HPI - General Chief complaint: Abdominal Pain Stated complaint: Abd Pain Time Seen by Provider: 05/07/17 14:50 Source: patient, RN notes reviewed, old records reviewed Mode of arrival: ambulatory Limitations: no limitations - History of Present Illness Initial comments: This is a 41-year-old female to the ER for evaluation. Patient presents to ER regarding of bowel pain flank pain. Patient has A prolonged medical history is significant for multiple surgeries kidney stones and severe abdominal pain. States his third ER visit in 3 days. Patient's exam just cardioverted and severe abdominal pain. Severe flank pain. No help with pain medication at home. No fevers. No other abdominal pain. - Related Data Home Medications Medication Instructions Recorded Confirmed LORazepam [Ativan] 1 mg PO TID PRN 03/01/16 05/07/17 PARoxetine HCL [Paxil] 40 mg PO HS 03/01/16 05/07/17 oxyCODONE HCL/ACETAMINOPHEN 1 tab PO TID PRN 04/08/16 05/07/17 [Percocet 10-325 mg] Lisinopril [Zestril] 10 mg PO HS 03/07/17 05/07/17 Loratadine [Claritin] 10 mg PO HS 03/07/17 05/07/17 SUMAtriptan SUCCINATE [Imitrex] 100 mg PO DAILY PRN 04/25/17 05/07/17 Ibuprofen [Motrin] 600 mg PO BID PRN 05/06/17 05/07/17 Insulin Glargine,Hum.rec.anlog 15 unit SQ HS 05/06/17 05/07/17 [Basaglar Kwikpen U-100] Insulin Glulisine [Apidra Solostar] 5 unit SQ TID 05/06/17 05/07/17 Previous Rx's Medication Instructions Recorded metFORMIN HCL 1,000 mg PO BID-W/MEALS #0 04/04/17 Allergies Allergy/AdvReac Type Severity Reaction Status Date / Time bupropion HCl Allergy Rash/Hives Verified 05/07/17 15:17 [From Wellbutrin] Iodinated Contrast- Oral and Allergy Anaphylaxis Verified 05/07/17 15:17 IV Dye [Iodinated Contrast Media - IV Dye] orange juice [[place]] Allergy Rash/Hives Verified 05/07/17 15:17 Sulfa (Sulfonamide Allergy Rash/Hives Verified 05/07/17 15:17 Antibiotics) Penicillins AdvReac Nausea & Verified 05/07/17 15:17 Vomiting Review of Systems ROS Statement: Those systems with pertinent positive or pertinent negative responses have been documented in the HPI. ROS Other: All systems not noted in ROS Statement are negative. 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 Pt states that about 6 months ago she started with skin discoloration L ankle that has increased in size-she saw a deposition reporter who prescibed antibiotic cream with no improvement-she also states the skin feels tight in that area and that her ankle now will occasionally "pop." History of Any Multi-Drug Resistant Organisms: None Reported Past Surgical History: Bladder Surgery, Section, Cholecystectomy, Hysterectomy, Orthopedic Surgery, Tubal Ligation Additional Past Surgical History / Comment(s): R ovarian cystectomy, laparoscopic surgery for L ovary that had attached to the bowel, D&C, numerous lithotripsies, nephroscopies, cystoscopies and stents to ureters-none in place at this time, L robotic pyeloplasty with post op infection around kidney which then required a picc line/later removed (pt states was not MRSA), L rotator cuff repair, L wrist tendon surgery, lithotripsy Past Anesthesia/Blood Transfusion Reactions: Family History of Problems w/ Anesthesia Additional Past Anesthesia/Blood Transfusion Reaction / Comment(s): dad-hard time waking up due to enzyme problems in liver Past Psychological History: ADD/ADHD, Anxiety, Depression Smoking Status: Current every day smoker Past Alcohol Use History: None Reported Past Drug Use History: None Reported - Past Family History Brother(s) Family Medical History: Cancer Father Family Medical History: Coronary Artery Disease (CAD), CVA/TIA, Diabetes Mellitus, Renal Disease Additional Family Medical History / Comment(s): GLAUCOMA,NEUROPATHY HAD TRIPLE CABG, FROM RENAL FAILURE Mother Family Medical History: Hyperlipidemia Additional Family Medical History / Comment(s): DDD, HAD 3 vessel CABG AGE 53. General Exam Limitations: no limitations General appearance: alert, in no apparent distress Head exam: Present: atraumatic, normocephalic, normal inspection Eye exam: Present: normal appearance, PERRL, EOMI. Absent: scleral icterus, conjunctival injection, periorbital swelling ENT exam: Present: normal exam, mucous membranes moist Neck exam: Present: normal inspection. Absent: tenderness, meningismus, lymphadenopathy Respiratory exam: Present: normal lung sounds bilaterally. Absent: respiratory distress, wheezes, rales, rhonchi, stridor Cardiovascular Exam: Present: normal rhythm, tachycardia, normal heart sounds. Absent: systolic murmur, diastolic murmur, rubs, gallop, clicks GI/Abdominal exam: Present: soft, normal bowel sounds. Absent: distended, tenderness, guarding, rebound, rigid Extremities exam: Present: normal inspection, full ROM, normal capillary refill. Absent: tenderness, pedal edema, joint swelling, calf tenderness Back exam: Present: normal inspection Neurological exam: Present: alert, oriented X3, CN II-XII intact Psychiatric exam: Present: normal affect, normal mood Skin exam: Present: warm, dry, intact, normal color. Absent: rash Course Vital Signs 05/07/17 05/07/17 14:48 15:49 Temperature 98.2 F Pulse Rate 125 H 107 H Respiratory 16 18 Rate Blood Pressure 146/83 122/72 O2 Sat by Pulse 97 98 Oximetry - Reevaluation(s) Reevaluation #1: 05/07/17 16:03 patient has pain control Reevaluation #2: 05/07/17 16:46 at this point patient remains resting comfortably did speak with Dr. Hill for Dr. Hill who recommends follow-up in the office tomorrow EKG Findings - EKG Comments: EKG Findings:: EKG shows normal sinus rhythm rate of 99, GA 136, QRS 60, QTc 426 Medical Decision Making - Medical Decision Making 41 female the ER for evaluation regarding abdominal pain find pain left-sided. Patient adequate pain control at this time the patient can be discharged home - Lab Data Result diagrams: 05/07/17 15:05 05/07/17 15:05 Lab Results 05/07/17 05/07/17 05/07/17 Range/Units 15:02 15:05 15:05 WBC 10.4 (3.8-10.6) k/uL RBC 4.34 (3.80-5.40) m/uL Hgb 12.6 (11.4-16.0) gm/dL Hct 37.7 (34.0-46.0) % MCV 86.7 (80.0-100.0) fL MCH 29.0 (25.0-35.0) pg MCHC 33.5 (31.0-37.0) g/dL RDW 13.8 (11.5-15.5) % Plt Count 342 (150-450) k/uL Neutrophils % 58 % Lymphocytes % 31 % Monocytes % 5 % Eosinophils % 3 % Basophils % 1 % Neutrophils # 6.1 (1.3-7.7) k/uL Lymphocytes # 3.2 (1.0-4.8) k/uL Monocytes # 0.5 (0-1.0) k/uL Eosinophils # 0.3 (0-0.7) k/uL Basophils # 0.1 (0-0.2) k/uL Sodium (137-145) mmol/L Potassium (3.5-5.1) mmol/L Chloride (98-107) mmol/L Carbon Dioxide (22-30) mmol/L Anion Gap mmol/L BUN (7-17) mg/dL Creatinine (0.52-1.04) mg/dL Est GFR (MDRD) Af Amer (>60 ml/min/1.73 sqM) Est GFR (MDRD) Non-Af (>60 ml/min/1.73 sqM) Glucose (74-99) mg/dL Plasma Lactic Acid Brant (0.7-2.0) mmol/L Calcium (8.4-10.2) mg/dL Phosphorus (2.5-4.5) mg/dL Magnesium (1.6-2.3) mg/dL Total Bilirubin (0.2-1.3) mg/dL AST (14-36) U/L ALT (9-52) U/L Alkaline Phosphatase (38-126) U/L Total Creatine Kinase 64 (30-135) U/L CK-MB (CK-2) 0.4 (0.0-2.4) ng/mL CK-MB (CK-2) Rel Index 0.6 Total Protein (6.3-8.2) g/dL Albumin (3.5-5.0) g/dL Urine Color Light Red Urine Appearance Clear (Clear) Urine pH 5.5 (5.0-8.0) Ur Specific [place] 1.003 (1.001-1.035) Urine Protein 1+ H (Negative) Urine Glucose (UA) Negative (Negative) Urine Ketones Negative (Negative) Urine Blood Large H (Negative) Urine Nitrite Negative (Negative) Urine Bilirubin Negative (Negative) Urine Urobilinogen <2.0 (<2.0) mg/dL Ur Leukocyte Esterase Negative (Negative) Urine RBC 16 H (0-5) /hpf Urine WBC 5 (0-5) /hpf Ur Squamous Epith Cells <1 (0-4) /hpf Urine Mucus Rare H (None) /hpf 05/07/17 05/07/17 Range/Units 15:05 15:05 WBC (3.8-10.6) k/uL RBC (3.80-5.40) m/uL Hgb (11.4-16.0) gm/dL Hct (34.0-46.0) % MCV (80.0-100.0) fL MCH (25.0-35.0) pg MCHC (31.0-37.0) g/dL RDW (11.5-15.5) % Plt Count (150-450) k/uL Neutrophils % % Lymphocytes % % Monocytes % % Eosinophils % % Basophils % % Neutrophils # (1.3-7.7) k/uL Lymphocytes # (1.0-4.8) k/uL Monocytes # (0-1.0) k/uL Eosinophils # (0-0.7) k/uL Basophils # (0-0.2) k/uL Sodium 140 (137-145) mmol/L Potassium 3.9 (3.5-5.1) mmol/L Chloride 106 (98-107) mmol/L Carbon Dioxide 19 L (22-30) mmol/L Anion Gap 15 mmol/L BUN 8 (7-17) mg/dL Creatinine 0.70 (0.52-1.04) mg/dL Est GFR (MDRD) Af Amer >60 (>60 ml/min/1.73 sqM) Est GFR (MDRD) Non-Af >60 (>60 ml/min/1.73 sqM) Glucose 205 H (74-99) mg/dL Plasma Lactic Acid Brant 3.6 H* (0.7-2.0) mmol/L Calcium 10.0 (8.4-10.2) mg/dL Phosphorus 3.7 (2.5-4.5) mg/dL Magnesium 1.6 (1.6-2.3) mg/dL Total Bilirubin 0.5 (0.2-1.3) mg/dL AST 41 H (14-36) U/L ALT 57 H (9-52) U/L Alkaline Phosphatase 105 (38-126) U/L Total Creatine Kinase (30-135) U/L CK-MB (CK-2) (0.0-2.4) ng/mL CK-MB (CK-2) Rel Index Total Protein 7.0 (6.3-8.2) g/dL Albumin 4.3 (3.5-5.0) g/dL Urine Color Urine Appearance (Clear) Urine pH (5.0-8.0) Ur Specific [place] (1.001-1.035) Urine Protein (Negative) Urine Glucose (UA) (Negative) Urine Ketones (Negative) Urine Blood (Negative) Urine Nitrite (Negative) Urine Bilirubin (Negative) Urine Urobilinogen (<2.0) mg/dL Ur Leukocyte Esterase (Negative) Urine RBC (0-5) /hpf Urine WBC (0-5) /hpf Ur Squamous Epith Cells (0-4) /hpf Urine Mucus (None) /hpf Disposition Clinical Impression: Left flank pain Disposition: HOME SELF-CARE Condition: Good Referrals: Melchor Stevens MD [Primary Care Provider] - 1-2 days
== END 2017-05-07 17:00 | disposition home or self-care (01) ==
LOC: EC 14:35
DX: R10.9 Unspecified abdominal pain (principal); E11.9 Type 2 diabetes mellitus without complications; I10 Essential (primary) hypertension; F32.9 Major depressive disorder, single episode, unspecified; F41.9 Anxiety disorder, unspecified; F17.200 Nicotine dependence, unspecified, uncomplicated; Z79.4 Long term (current) use of insulin; Z87.19 Personal history of other diseases of the digestive system; Z87.442 Personal history of urinary calculi; Z90.49 Acquired absence of other specified parts of digestive tract; Z91.041 Radiographic dye allergy status; Z88.0 Allergy status to penicillin; Z88.2 Allergy status to sulfonamides; Z88.8 Allergy status to other drugs, medicaments and biological substances; Z91.018 Allergy to other foods; Z79.899 Other long term (current) drug therapy
CPT/HCPCS: 36415; 80053; 82550; 82553; 83605; 83735; 84100; 85025; 81001; 87086; 99284; 96374; 96375 ×3; 96361; J2060; J1200; J2405; J1170; 93005

== ENCOUNTER 2017-05-14 04:01 | Emergency (ER) | payer OTHER ==
[2017-05-14] MEDS ORDERED: ONDANSETRON 4 MG/2 ML VIAL IVP STA (04:28)
[2017-05-14] MEDS ORDERED: SODIUM CHLORIDE 0.9% 1,000 ML IV STA (04:28)
[2017-05-14] MEDS ORDERED: DICYCLOMINE 10 MG/ML 2 ML AMP IM STA (04:28)
[2017-05-14] MEDS ORDERED: FAMOTIDINE 20 MG/2 ML VIAL IV STA (04:29)
--- NOTE | 2017-05-14 04:31 | ED ---
General Adult HPI - General Chief complaint: Abdominal Pain Stated complaint: abd pain Time Seen by Provider: 05/14/17 04:19 Source: patient, RN notes reviewed, old records reviewed Mode of arrival: wheelchair Limitations: no limitations - History of Present Illness Initial comments: Patient is a pleasant 41-year-old female returning to the emergency Department with abdominal discomfort. Patient has chronic abdominal pain. Patient states symptoms have been worsening over the past few weeks. Patient states as comfort is more midline. Patient has had some nausea vomiting. Patient denies constipation. Patient states there is been some diarrhea. No fever. Patient is on oral pain medication chronically. - Related Data Home Medications Medication Instructions Recorded Confirmed LORazepam [Ativan] 1 mg PO TID PRN 03/01/16 05/14/17 PARoxetine HCL [Paxil] 40 mg PO HS 03/01/16 05/14/17 oxyCODONE HCL/ACETAMINOPHEN 1 tab PO TID PRN 04/08/16 05/14/17 [Percocet 10-325 mg] Lisinopril [Zestril] 10 mg PO HS 03/07/17 05/14/17 Loratadine [Claritin] 10 mg PO HS 03/07/17 05/14/17 SUMAtriptan SUCCINATE [Imitrex] 100 mg PO DAILY PRN 04/25/17 05/14/17 Ibuprofen [Motrin] 600 mg PO BID PRN 05/06/17 05/14/17 Insulin Glargine,Hum.rec.anlog 15 unit SQ HS 05/06/17 05/14/17 [Basaglar Kwikpen U-100] Insulin Glulisine [Apidra Solostar] 5 unit SQ TID 05/06/17 05/14/17 Previous Rx's Medication Instructions Recorded metFORMIN HCL 1,000 mg PO BID-W/MEALS #0 04/04/17 Allergies Allergy/AdvReac Type Severity Reaction Status Date / Time bupropion HCl Allergy Rash/Hives Verified 05/14/17 04:07 [From Wellbutrin] Iodinated Contrast- Oral and Allergy Anaphylaxis Verified 05/14/17 04:07 IV Dye [Iodinated Contrast Media - IV Dye] orange juice [[place]] Allergy Rash/Hives Verified 05/14/17 04:07 Sulfa (Sulfonamide Allergy Rash/Hives Verified 05/14/17 04:07 Antibiotics) Penicillins AdvReac Nausea & Verified 05/14/17 04:07 Vomiting Review of Systems ROS Statement: Those systems with pertinent positive or pertinent negative responses have been documented in the HPI. ROS Other: All systems not noted in ROS Statement are negative. 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 Pt states that about 6 months ago she started with skin discoloration L ankle that has increased in size-she saw a [employer] consultant who prescibed antibiotic cream with no improvement-she also states the skin feels tight in that area and that her ankle now will occasionally "pop." History of Any Multi-Drug Resistant Organisms: None Reported Past Surgical History: Bladder Surgery, Section, Cholecystectomy, Hysterectomy, Orthopedic Surgery, Tubal Ligation Additional Past Surgical History / Comment(s): R ovarian cystectomy, laparoscopic surgery for L ovary that had attached to the bowel, D&C, numerous lithotripsies, nephroscopies, cystoscopies and stents to ureters-none in place at this time, L robotic pyeloplasty with post op infection around kidney which then required a picc line/later removed (pt states was not MRSA), L rotator cuff repair, L wrist tendon surgery, lithotripsy Past Anesthesia/Blood Transfusion Reactions: Family History of Problems w/ Anesthesia Additional Past Anesthesia/Blood Transfusion Reaction / Comment(s): dad-hard time waking up due to enzyme problems in liver Past Psychological History: ADD/ADHD, Anxiety, Depression Smoking Status: Current every day smoker Past Alcohol Use History: None Reported Past Drug Use History: None Reported - Past Family History Brother(s) Family Medical History: Cancer Father Family Medical History: Coronary Artery Disease (CAD), CVA/TIA, Diabetes Mellitus, Renal Disease Additional Family Medical History / Comment(s): GLAUCOMA,NEUROPATHY HAD TRIPLE CABG, FROM RENAL FAILURE Mother Family Medical History: Hyperlipidemia Additional Family Medical History / Comment(s): DDD, HAD 3 vessel CABG AGE 53. General Exam Limitations: no limitations General appearance: alert, in no apparent distress Head exam: Present: atraumatic Eye exam: Present: normal appearance, PERRL ENT exam: Present: normal oropharynx Neck exam: Present: normal inspection Respiratory exam: Present: normal lung sounds bilaterally Cardiovascular Exam: Present: regular rate, normal rhythm Expanded Peripheral pulses: 2+: Dorsalis Pedis (R), Dorsalis Pedis (L) GI/Abdominal exam: Present: soft, tenderness (Mild mid abdominal tenderness), normal bowel sounds. Absent: distended, guarding, rebound, rigid, pulsatile mass Extremities exam: Present: normal inspection Neurological exam: Present: alert Psychiatric exam: Present: normal affect, normal mood Skin exam: Present: normal color Course Vital Signs 05/14/17 04:04 Temperature 98.0 F Pulse Rate 110 H Respiratory 20 Rate Blood Pressure 129/87 O2 Sat by Pulse 98 Oximetry Medical Decision Making - Medical Decision Making Patient reexamined and resting comfortably in bed. Patient still complains of some discomfort. Patient states she has an appointment to see her urologist on Sunday. - Lab Data Result diagrams: 05/14/17 04:41 05/14/17 04:41 Lab Results 05/14/17 05/14/17 05/14/17 Range/Units 04:20 04:41 04:41 WBC 14.4 H (3.8-10.6) k/uL RBC 4.37 (3.80-5.40) m/uL Hgb 12.6 (11.4-16.0) gm/dL Hct 38.2 (34.0-46.0) % MCV 87.3 (80.0-100.0) fL MCH 28.7 (25.0-35.0) pg MCHC 32.9 (31.0-37.0) g/dL RDW 14.2 (11.5-15.5) % Plt Count 327 (150-450) k/uL Neutrophils % 59 % Lymphocytes % 32 % Monocytes % 5 % Eosinophils % 2 % Basophils % 1 % Neutrophils # 8.5 H (1.3-7.7) k/uL Lymphocytes # 4.6 (1.0-4.8) k/uL Monocytes # 0.6 (0-1.0) k/uL Eosinophils # 0.3 (0-0.7) k/uL Basophils # 0.1 (0-0.2) k/uL Sodium 141 (137-145) mmol/L Potassium 3.7 (3.5-5.1) mmol/L Chloride 106 (98-107) mmol/L Carbon Dioxide 23 (22-30) mmol/L Anion Gap 12 mmol/L BUN 10 (7-17) mg/dL Creatinine 0.69 (0.52-1.04) mg/dL Est GFR (MDRD) Af Amer >60 (>60 ml/min/1.73 sqM) Est GFR (MDRD) Non-Af >60 (>60 ml/min/1.73 sqM) Glucose 110 H (74-99) mg/dL Calcium 9.5 (8.4-10.2) mg/dL Total Bilirubin 0.7 (0.2-1.3) mg/dL AST 36 (14-36) U/L ALT 56 H (9-52) U/L Alkaline Phosphatase 97 (38-126) U/L Total Protein 7.3 (6.3-8.2) g/dL Albumin 4.2 (3.5-5.0) g/dL Amylase 37 (30-110) U/L Lipase 110 (23-300) U/L Urine Color Light Red Urine Appearance Cloudy H (Clear) Urine pH 5.5 (5.0-8.0) Ur Specific [place] 1.017 (1.001-1.035) Urine Protein Trace H (Negative) Urine Glucose (UA) Negative (Negative) Urine Ketones Negative (Negative) Urine Blood Large H (Negative) Urine Nitrite Negative (Negative) Urine Bilirubin Negative (Negative) Urine Urobilinogen <2.0 (<2.0) mg/dL Ur Leukocyte Esterase Negative (Negative) Urine RBC 182 H (0-5) /hpf Urine WBC 23 H (0-5) /hpf Ur Squamous Epith Cells 30 H (0-4) /hpf Urine Mucus Rare H (None) /hpf - Radiology Data Radiology results: report reviewed (Computed tomography scan of the abdomen and pelvis shows mild left hydronephrosis with similar punctate calcification proximal left ureter. Normal appendix.) Disposition Clinical Impression: Abdominal pain Disposition: HOME SELF-CARE Condition: Stable Instructions: Abdominal Pain (ED) Additional Instructions: Please follow-up with your primary care physician and urologist within the next day or 2 for recheck. Return for fevers, uncontrolled vomiting, worsening or changing symptoms or other concerns. Referrals: Melchor Stevens MD [Primary Care Provider] - 1-2 days Time of Disposition: 06:10
[2017-05-14 05:13] LABS: Basophils # (A) 0.1 k/uL (0-0.2); Basophils % (A) 1 %; CH 29.2; CHCM 33.6; Eosinophils # (A) 0.3 k/uL (0-0.7); Eosinophils % (A) 2 %; HCT 38.2 % (34.0-46.0); HDW 2.63; HGB 12.6 gm/dL (11.4-16.0); Luc # (Auto) 0.18; Luc % (Auto) 1; Lymphocytes # (A) 4.6 k/uL (1.0-4.8); Lymphocytes % (A) 32 %; MCH 28.7 pg (25.0-35.0); MCHC 32.9 g/dL (31.0-37.0); MCV 87.3 fL (80.0-100.0); Mean Platelet Volume 6.9; Monocytes # (A) 0.6 k/uL (0-1.0); Monocytes % (A) 5 %; Neutrophils # (A) 8.5 k/uL (1.3-7.7); Neutrophils % (A) 59 %; RBC 4.37 m/uL (3.80-5.40); RDW 14.2 % (11.5-15.5); WBC 14.4 k/uL (3.8-10.6); WBC (Perox) 14.68
[2017-05-14 05:17] LABS: Appearance,Urine Cloudy (Clear); Bilirubin,Urine Negative (Negative); Glucose,Urine (UA) Negative (Negative); Ketones,Urine Negative (Negative); Leukocyte Esterase,Urine Negative (Negative); Mucus,Urine Rare /hpf; Nitrite,Urine Negative (Negative); PH, Urine 5.5 (5.0-8.0); Particle Count 6751; Protein,Urine Trace (Negative); RBC,Urine 182 /hpf (0-5); Specific Gravity,Urine 1.017 (1.001-1.035); Squamous Epithelial Cell,Urine 30 /hpf (0-4); UA Billing (MACRO vs. MICRO) MICRO; Urobilinogen,Urine <2.0 mg/dL (<2.0); WBC,Urine 23 /hpf (0-5)
--- NOTE | 2017-05-14 05:32 | CT ---
EXAM: CT Abdomen and Pelvis Without Intravenous Contrast CLINICAL HISTORY: Reason: Abdominal pain that radiates to the back with nausea, vomiting, diarrhea TECHNIQUE: Axial computed tomography images of the abdomen and pelvis without intravenous contrast. CTDI is 10.10 mGy and DLP is 450.10 mGy-cm. This CT exam was performed using one or more of the following dose reduction techniques: automated exposure control, adjustment of the mA and/or kV according to patient size, and/or use of iterative reconstruction technique. COMPARISON: CT abdomen/pelvis on 03/19/2017 FINDINGS: Evaluation of solid organs somewhat limited without IV contrast. Liver: Hepatic steatosis. Stable hepatomegaly. No focal lesion. Spleen: Small splenules. No focal lesion. Gallbladder: Status post cholecystectomy. Pancreas: No mass. Adrenal glands: No mass. Kidneys: Mild left hydronephrosis again noted with similar punctate calcification again noted in the proximal left ureter just distal to the left UPJ. Punctate nonobstructing stone in the upper right kidney. The more prominent stone in the right renal pelvis on prior exam is no longer visualized. Bowel: Normal appendix. No bowel obstruction or inflammation. Urinary bladder: Decompressed bladder. Reproductive organs: Status post hysterectomy Muscles: No mass. Subcutaneous tissues: Tiny fat-containing umbilical hernia. Peritoneal space: Phleboliths in the pelvis. No free fluid. Lymph nodes: No lymphadenopathy. Vessels: No aneurysm. Bones: Probable punctate bone islands in the pelvis. No acute fracture or bony lesion. Degenerative changes of the spine. Lung bases: Normal. IMPRESSION: 1. Mild left hydronephrosis again noted with similar punctate calcification in the proximal left ureter just distal to the left UPJ. 2. Punctate nonobstructing stone in the upper right kidney. The more prominent stone in the right renal pelvis on prior exam is no longer visualized. 3. Normal appendix.
[2017-05-14 05:37] LABS: ALT 56 U/L (9-52); AST 36 U/L (14-36); Alkaline Phosphatase 97 U/L (38-126); Amylase 37 U/L (30-110); Anion Gap 12 mmol/L; Blood Urea Nitrogen 10 mg/dL (7-17); Calcium 9.5 mg/dL (8.4-10.2); Carbon Dioxide 23 mmol/L (22-30); Chloride 106 mmol/L (98-107); Glucose 110 mg/dL (74-99); Non-African American GFR(MDRD) >60 (>60 ml/min/1.73 sqM); Potassium 3.7 mmol/L (3.5-5.1); Sodium 141 mmol/L (137-145); Total Bilirubin 0.7 mg/dL (0.2-1.3); Total Protein 7.3 g/dL (6.3-8.2)
[2017-05-14 06:10] VITALS: BP 113/55; PULSE 98; RESP 18; TEMP 97.1
[2017-05-14] MEDS ORDERED: KETOROLAC 30 MG/ML 1 ML VIAL IVP STA (06:10)
== END 2017-05-14 06:37 | disposition home or self-care (01) ==
LOC: EC 04:01
DX: R10.9 Unspecified abdominal pain (principal); N13.30 Unspecified hydronephrosis; G89.29 Other chronic pain; R11.2 Nausea with vomiting, unspecified; R19.7 Diarrhea, unspecified; I10 Essential (primary) hypertension; E11.9 Type 2 diabetes mellitus without complications; F32.9 Major depressive disorder, single episode, unspecified; F41.9 Anxiety disorder, unspecified; F17.200 Nicotine dependence, unspecified, uncomplicated; Z79.4 Long term (current) use of insulin; Z79.899 Other long term (current) drug therapy; Z88.0 Allergy status to penicillin; Z88.2 Allergy status to sulfonamides; Z88.8 Allergy status to other drugs, medicaments and biological substances; Z91.018 Allergy to other foods; Z91.041 Radiographic dye allergy status; Z90.49 Acquired absence of other specified parts of digestive tract
CPT/HCPCS: 36415; 74176; 80053; 81001; 82150; 83690; 85025; 87077; 87086; 87186; 96361; 96372; 96374; 96375; 99284

== ENCOUNTER 2017-06-15 02:59 | Emergency (ER) | payer OTHER ==
[2017-06-15 03:06] VITALS: RESP 18; TEMP 97.7
[2017-06-15] MEDS ORDERED: ONDANSETRON 4 MG/2 ML VIAL IVP STA (03:25)
[2017-06-15] MEDS ORDERED: SODIUM CHLORIDE 0.9% 1,000 ML IV STA (03:25)
[2017-06-15] MEDS ORDERED: HYDROmorphone 1 MG/ML 1 ML SYRINGE IVP STA (03:25)
[2017-06-15 03:49] LABS: Appearance,Urine Clear (Clear); Bilirubin,Urine Negative (Negative); Glucose,Urine (UA) Negative (Negative); Ketones,Urine Negative (Negative); Leukocyte Esterase,Urine Trace (Negative); Nitrite,Urine Negative (Negative); PH, Urine 6.5 (5.0-8.0); Particle Count 805; Protein,Urine Trace (Negative); RBC,Urine 80 /hpf (0-5); Specific Gravity,Urine 1.013 (1.001-1.035); Squamous Epithelial Cell,Urine 2 /hpf (0-4); UA Billing (MACRO vs. MICRO) MICRO; Urobilinogen,Urine <2.0 mg/dL (<2.0); WBC,Urine 81 /hpf (0-5)
--- NOTE | 2017-06-15 03:50 | ED ---
General Adult HPI - General Chief complaint: Abdominal Pain Stated complaint: R flank pain Time Seen by Provider: 06/15/17 03:11 Source: patient, RN notes reviewed, old records reviewed Mode of arrival: ambulatory Limitations: no limitations - History of Present Illness Initial comments: This is a 42-year-old female to the ER for evaluation of pain. Back pain flank pain. Patient is well-known to this ER for evaluation and recurrent evaluation of pain and kidney stones. Patient was admitted to blood in her urine. Denies fever. Patient is afebrile feeling better especially since recent hospital discharge and new medications. But she states the pain started last night and bleeding started last night. She was unable tolerated this morning. No nausea or vomiting. - Related Data Home Medications Medication Instructions Recorded Confirmed oxyCODONE HCL/ACETAMINOPHEN 1 tab PO TID PRN 04/08/16 06/05/17 [Percocet 10-325 mg] Lisinopril [Zestril] 10 mg PO HS 03/07/17 06/05/17 SUMAtriptan SUCCINATE [Imitrex] 100 mg PO DAILY PRN 04/25/17 06/05/17 Ibuprofen [Motrin] 600 mg PO BID PRN 05/06/17 06/05/17 Previous Rx's Medication Instructions Recorded metFORMIN HCL 1,000 mg PO BID-W/MEALS #0 04/04/17 Ciprofloxacin HCl [Cipro] 500 mg PO Q12HR #6 tablet 06/13/17 Dicyclomine [Bentyl] 10 mg PO QID cap 06/13/17 Insulin Aspart [NovoLOG 5 unit SQ AC-TID #1 vial 06/13/17 (formulary)] Insulin Detemir [Levemir] 15 unit SQ HS #1 syr 06/13/17 LORazepam [Ativan] 1 mg PO DIRECTED PRN tab 06/13/17 Meloxicam [Mobic] 15 mg PO W/SUPPER #30 tab 06/13/17 OXcarbazepine [Trileptal] 300 mg PO BID #60 tab 06/13/17 PARoxetine [Paxil] 60 mg PO HS #30 tab 06/13/17 Pantoprazole [Protonix] 40 mg PO AC-BRKFST #30 tablet. 06/13/17 Ziprasidone [Geodon] 40 mg PO PC-BRKFST #30 cap 06/13/17 Ziprasidone [Geodon] 80 mg PO HS #30 cap 06/13/17 hydrOXYzine PAMOATE [Vistaril] 25 mg PO 0900,1300,1700 #90 cap 06/13/17 metFORMIN HCL [Glucophage] 1,000 mg PO BID-W/MEALS tab 06/13/17 Allergies Allergy/AdvReac Type Severity Reaction Status Date / Time bupropion HCl Allergy Rash/Hives Verified 06/15/17 03:07 [From Wellbutrin] Iodinated Contrast- Oral and Allergy Anaphylaxis Verified 06/15/17 03:07 IV Dye [Iodinated Contrast Media - IV Dye] orange juice [[place]] Allergy Rash/Hives Verified 06/15/17 03:07 Sulfa (Sulfonamide Allergy Rash/Hives Verified 06/15/17 03:07 Antibiotics) Penicillins AdvReac Nausea & Verified 06/15/17 03:07 Vomiting Review of Systems ROS Statement: Those systems with pertinent positive or pertinent negative responses have been documented in the HPI. ROS Other: All systems not noted in ROS Statement are negative. 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 who prescibed antibiotic cream with no improvement-she also states the skin feels tight in that area and that her ankle now will occasionally "pop." History of Any Multi-Drug Resistant Organisms: None Reported Date of last positivie culture/infection: 05/14/17 MDRO Source:: ESBL URINE Past Surgical History: Bladder Surgery, Section, Cholecystectomy, Hysterectomy, Orthopedic Surgery, Tubal Ligation Additional Past Surgical History / Comment(s): R ovarian cystectomy, laparoscopic surgery for L ovary that had attached to the bowel, D&C, numerous lithotripsies, nephroscopies, cystoscopies and stents to ureters-none in place at this time, L robotic pyeloplasty with post op infection around kidney which then required a picc line/later removed (pt states was not MRSA), L rotator cuff repair, L wrist tendon surgery, lithotripsy Past Anesthesia/Blood Transfusion Reactions: Family History of Problems w/ Anesthesia Additional Past Anesthesia/Blood Transfusion Reaction / Comment(s): dad-hard time waking up due to enzyme problems in liver Past Psychological History: ADD/ADHD, Anxiety, Depression Smoking Status: Current every day smoker Past Alcohol Use History: None Reported Past Drug Use History: None Reported - Past Family History Brother(s) Family Medical History: Cancer Additional Family Medical History / Comment(s): testicular Father Family Medical History: Coronary Artery Disease (CAD), CVA/TIA, Diabetes Mellitus, Renal Disease Additional Family Medical History / Comment(s): GLAUCOMA,NEUROPATHY HAD TRIPLE CABG, with dementia Mother Family Medical History: Hyperlipidemia Additional Family Medical History / Comment(s): DDD, HAD 3 vessel CABG AGE 53. General Exam Limitations: no limitations General appearance: alert, in no apparent distress Head exam: Present: atraumatic, normocephalic, normal inspection Eye exam: Present: normal appearance, PERRL, EOMI. Absent: scleral icterus, conjunctival injection, periorbital swelling ENT exam: Present: normal exam, mucous membranes moist Neck exam: Present: normal inspection. Absent: tenderness, meningismus, lymphadenopathy Respiratory exam: Present: normal lung sounds bilaterally. Absent: respiratory distress, wheezes, rales, rhonchi, stridor Cardiovascular Exam: Present: regular rate, normal rhythm, normal heart sounds. Absent: systolic murmur, diastolic murmur, rubs, gallop, clicks GI/Abdominal exam: Present: soft, normal bowel sounds. Absent: distended, tenderness, guarding, rebound, rigid Extremities exam: Present: normal inspection, full ROM, normal capillary refill. Absent: tenderness, pedal edema, joint swelling, calf tenderness Back exam: Present: normal inspection Neurological exam: Present: alert, oriented X3, CN II-XII intact Psychiatric exam: Present: normal affect, normal mood Skin exam: Present: warm, dry, intact, normal color. Absent: rash Course Vital Signs 06/15/17 03:02 Temperature 97.7 F Pulse Rate 112 H Respiratory 18 Rate Blood Pressure 125/73 O2 Sat by Pulse 100 Oximetry - Reevaluation(s) Reevaluation #1: 06/15/17 03:49 Medical record including prior hospitalization or reviewed Reevaluation #2: 06/15/17 03:49 Patient's pain is controlled Medical Decision Making - Medical Decision Making [facility] [place] [facility] for evaluation of recurrent pain. Severe and acute on chronic pain. Patient's pain is resolving can be discharged home - Radiology Data Radiology results: report reviewed (X-ray KUB negative), image reviewed Disposition Clinical Impression: Back pain, Intractable pain Disposition: HOME SELF-CARE Condition: Good Instructions: Renal Colic (ED) Referrals: Melchor Stevens MD [Primary Care Provider] - 1-2 days
[2017-06-15 03:53] LABS: Basophils # (A) 0.1 k/uL (0-0.2); Basophils % (A) 1 %; CH 29.3; CHCM 34.2; Eosinophils # (A) 0.3 k/uL (0-0.7); Eosinophils % (A) 3 %; HCT 36.4 % (34.0-46.0); HDW 2.39; HGB 12.1 gm/dL (11.4-16.0); Luc # (Auto) 0.18; Luc % (Auto) 2; Lymphocytes # (A) 3.6 k/uL (1.0-4.8); Lymphocytes % (A) 34 %; MCH 28.5 pg (25.0-35.0); MCHC 33.1 g/dL (31.0-37.0); Mean Platelet Volume 7.6; Monocytes # (A) 0.7 k/uL (0-1.0); Monocytes % (A) 7 %; Neutrophils # (A) 5.8 k/uL (1.3-7.7); Neutrophils % (A) 54 %; RBC 4.23 m/uL (3.80-5.40); RDW 14.3 % (11.5-15.5); WBC 10.6 k/uL (3.8-10.6); WBC (Perox) 10.33
[2017-06-15 04:03] LABS: ALT 35 U/L (9-52); AST 20 U/L (14-36); Alkaline Phosphatase 78 U/L (38-126); Amylase 49 U/L (30-110); Anion Gap 12 mmol/L; Blood Urea Nitrogen 13 mg/dL (7-17); Calcium 9.8 mg/dL (8.4-10.2); Carbon Dioxide 24 mmol/L (22-30); Chloride 100 mmol/L (98-107); Glucose 164 mg/dL (74-99); Non-African American GFR(MDRD) >60 (>60 ml/min/1.73 sqM); Potassium 4.1 mmol/L (3.5-5.1); Sodium 136 mmol/L (137-145); Total Bilirubin 0.2 mg/dL (0.2-1.3); Total Protein 6.8 g/dL (6.3-8.2)
--- NOTE | 2017-06-15 04:59 | XR ---
EXAM: XR Abdomen, 1 View CLINICAL HISTORY: Reason: abdominal pain TECHNIQUE: Two frontal upright views of the abdomen/pelvis. COMPARISON: Recent 06/08/17 plain films, 05/14/[address] FINDINGS: Intraperitoneal space: No free air is identified. Gastrointestinal tract: As on the most recent radiograph, there is at least a moderate volume of colonic stool throughout, extending into the pelvis. No grossly dilated small bowel loops are seen. There is a small air-fluid level within the stomach that itself does not appear to be overly distended. Other: Right upper quadrant clips consistent with cholecystectomy. Right pelvic calcifications are stable consistent with phleboliths. Bones/joints: Mild leftward curvature centered at the L2-3 level is again present. IMPRESSION: At least moderate volume of colonic stool is again present throughout, into the pelvis, as on the recent KUB. No frankly dilated loops or free air. The findings could be correlated clinically to guide further follow- up as clinically indicated.
[2017-06-15] MEDS ORDERED: diphenhydrAMINE 50 MG/ML 1 ML VIAL IVP STA (05:27)
[2017-06-15 05:31] VITALS: BP 109/59; PULSE 104
== END 2017-06-15 05:59 | disposition home or self-care (01) ==
LOC: EC 02:59
DX: M54.9 Dorsalgia, unspecified (principal); G89.29 Other chronic pain; R31.9 Hematuria, unspecified; M51.9 Unspecified thoracic, thoracolumbar and lumbosacral intervertebral disc disorder; I10 Essential (primary) hypertension; F17.200 Nicotine dependence, unspecified, uncomplicated; Z79.899 Other long term (current) drug therapy; Z88.0 Allergy status to penicillin; Z88.2 Allergy status to sulfonamides; Z88.8 Allergy status to other drugs, medicaments and biological substances; Z91.018 Allergy to other foods; Z91.041 Radiographic dye allergy status; Z98.890 Other specified postprocedural states; Z82.69 Family history of other diseases of the musculoskeletal system and connective tissue
CPT/HCPCS: 36415; 74000; 80053; 81001; 82150; 83690; 85025; 87077; 87086; 87186; 96361; 96374; 96375; 99284

== ENCOUNTER 2017-06-23 02:10 | Emergency (ER) | payer OTHER ==
[2017-06-23] MEDS ORDERED: MORPHINE SULFATE 5 MG/ML SYRINGE IVP STA (02:50)
--- NOTE | 2017-06-23 02:55 | ED ---
General Adult HPI - General Chief complaint: Urogenital Stated complaint: blood in urine Time Seen by Provider: 06/23/17 02:42 Source: patient, RN notes reviewed, old records reviewed Mode of arrival: ambulatory Limitations: no limitations - History of Present Illness Initial comments: 42-year-old female with history of chronic kidney stones presents for evaluation of hematuria and left flank pain. Patient has had chronic kidney stones for many years. She has intermittent hematuria at baseline. Pain is been present for the past 12 hours. Patient does report 4 episodes of nausea and vomiting associated with the pain. She also complains of some radiating left flank pain to her lower pelvis. Patient denies any change in her bowels. She has been eating and drinking today otherwise. Patient does report subjective fever. Patient had recent lithotripsy and is well-known to urology for her chronic kidney stones. Patient took her Mobic, and 10 mg Percocet at home with minimal relief. - Related Data Home Medications Medication Instructions Recorded Confirmed oxyCODONE HCL/ACETAMINOPHEN 1 tab PO TID PRN 04/08/16 06/19/17 [Percocet 10-325 mg] Lisinopril [Zestril] 10 mg PO HS 03/07/17 06/19/17 SUMAtriptan SUCCINATE [Imitrex] 100 mg PO DAILY PRN 04/25/17 06/19/17 Ibuprofen [Motrin] 600 mg PO BID PRN 05/06/17 06/19/17 LORazepam [Ativan] 1 mg PO DAILY PRN 06/17/17 06/19/17 hydrOXYzine PAMOATE [Vistaril] 25 mg PO TID@0900,1300,1700 06/17/17 06/19/17 Previous Rx's Medication Instructions Recorded Dicyclomine [Bentyl] 10 mg PO QID cap 06/13/17 Insulin Aspart [NovoLOG 5 unit SQ AC-TID #1 vial 06/13/17 (formulary)] Insulin Detemir [Levemir] 15 unit SQ HS #1 syr 06/13/17 Meloxicam [Mobic] 15 mg PO W/SUPPER #30 tab 06/13/17 OXcarbazepine [Trileptal] 300 mg PO BID #60 tab 06/13/17 PARoxetine [Paxil] 60 mg PO HS #30 tab 06/13/17 Pantoprazole [Protonix] 40 mg PO AC-BRKFST #30 tablet. 06/13/17 Ziprasidone [Geodon] 40 mg PO PC-BRKFST #30 cap 06/13/17 Ziprasidone [Geodon] 80 mg PO HS #30 cap 06/13/17 metFORMIN HCL [Glucophage] 1,000 mg PO BID-W/MEALS tab 06/13/17 Clindamycin [Cleocin] 450 mg PO Q8HR #90 capsule 06/17/17 Fluconazole [Diflucan] 150 mg PO ONCE #1 tab 06/17/17 Nitrofurantoin Macrocrystal 100 mg PO BID #14 cap 06/23/17 [Macrodantin] Allergies Allergy/AdvReac Type Severity Reaction Status Date / Time bupropion HCl Allergy Rash/Hives Verified 06/23/17 02:15 [From Wellbutrin] Iodinated Contrast- Oral and Allergy Anaphylaxis Verified 06/23/17 02:15 IV Dye [Iodinated Contrast Media - IV Dye] orange juice [[place]] Allergy Rash/Hives Verified 06/23/17 02:15 Sulfa (Sulfonamide Allergy Rash/Hives Verified 06/23/17 02:15 Antibiotics) Penicillins AdvReac Nausea & Verified 06/23/17 02:15 Vomiting Review of Systems ROS Statement: Those systems with pertinent positive or pertinent negative responses have been documented in the HPI. ROS Other: All systems not noted in ROS Statement are negative. 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 Pt states that about 6 months ago she started with skin discoloration L ankle that has increased in size-she saw a camp housekeeper who prescibed antibiotic cream with no improvement-she also states the skin feels tight in that area and that her ankle now will occasionally "pop." History of Any Multi-Drug Resistant Organisms: None Reported Date of last positivie culture/infection: 05/14/17 MDRO Source:: ESBL URINE Past Surgical History: Bladder Surgery, Section, Cholecystectomy, Hysterectomy, Orthopedic Surgery, Tubal Ligation Additional Past Surgical History / Comment(s): R ovarian cystectomy, laparoscopic surgery for L ovary that had attached to the bowel, D&C, numerous lithotripsies, nephroscopies, cystoscopies and stents to ureters-none in place at this time, L robotic pyeloplasty with post op infection around kidney which then required a picc line/later removed (pt states was not MRSA), L rotator cuff repair, L wrist tendon surgery, lithotripsy Past Anesthesia/Blood Transfusion Reactions: Family History of Problems w/ Anesthesia Additional Past Anesthesia/Blood Transfusion Reaction / Comment(s): dad-hard time waking up due to enzyme problems in liver Past Psychological History: ADD/ADHD, Anxiety, Bipolar, Depression Smoking Status: Current every day smoker Past Alcohol Use History: None Reported Past Drug Use History: None Reported - Past Family History Brother(s) Family Medical History: Cancer Additional Family Medical History / Comment(s): testicular Father Family Medical History: Coronary Artery Disease (CAD), CVA/TIA, Diabetes Mellitus, Renal Disease Additional Family Medical History / Comment(s): GLAUCOMA,NEUROPATHY HAD TRIPLE CABG, with dementia Mother Family Medical History: Hyperlipidemia Additional Family Medical History / Comment(s): DDD, HAD 3 vessel CABG AGE 53. General Exam Limitations: no limitations General appearance: alert, in no apparent distress Head exam: Present: atraumatic, normocephalic Eye exam: Present: normal appearance, PERRL Neck exam: Present: normal inspection. Absent: tenderness Respiratory exam: Present: normal lung sounds bilaterally. Absent: respiratory distress, wheezes Cardiovascular Exam: Present: regular rate, normal rhythm GI/Abdominal exam: Present: soft. Absent: distended, tenderness Back exam: Present: normal inspection, full ROM, CVA tenderness (L) Neurological exam: Present: alert, oriented X3, CN II-XII intact. Absent: motor sensory deficit Psychiatric exam: Present: normal affect, normal mood Skin exam: Present: warm, dry, intact. Absent: cyanosis, diaphoretic Course Vital Signs 06/23/17 02:15 Temperature 97.2 F L Pulse Rate 93 Respiratory 17 Rate Blood Pressure 144/80 O2 Sat by Pulse 100 Oximetry Medical Decision Making - Medical Decision Making 42-year-old female with history of recurrent kidney stones presents with left flank pain and hematuria. Urinalysis reveals 174 rbc's and 49 wbc's, this represents a disproportionate amount of white blood cells, this is suggestive of UTI. X-rays obtained, no calcified renal stones present. Patient given pain medication on reevaluation she is feeling better. Recent urine culture results are reviewed and positive for E. coli susceptible to nitrofurantoin. Patient will be given nitrofurantoin for concurrent UTI. Patient is otherwise well-appearing, afebrile. She will follow-up with her primary care physician and urologist. She will return to the emergency department with worsening symptoms. Diagnosis: Renal colic, hematuria, UTI - Lab Data Lab Results 06/23/17 06/23/17 Range/Units 02:18 02:18 Urine Color Yellow Urine Appearance Clear (Clear) Urine pH 5.5 (5.0-8.0) Ur Specific [place] 1.014 (1.001-1.035) Urine Protein Trace H (Negative) Urine Glucose (UA) Negative (Negative) Urine Ketones Negative (Negative) Urine Blood Large H (Negative) Urine Nitrite Negative (Negative) Urine Bilirubin Negative (Negative) Urine Urobilinogen <2.0 (<2.0) mg/dL Ur Leukocyte Esterase Negative (Negative) Urine RBC 174 H (0-5) /hpf Urine WBC 49 H (0-5) /hpf Ur Squamous Epith Cells 2 (0-4) /hpf Urine Mucus Rare H (None) /hpf Urine HCG, Qual Not Detected (Not Detectd) Disposition Clinical Impression: Left flank pain, chronic, Renal colic on left side, UTI (urinary tract infection) Disposition: HOME SELF-CARE Instructions: Urinary Tract Infection in Women (ED), Kidney Stones (ED) Prescriptions: Nitrofurantoin Macrocrystal [Macrodantin] 100 mg PO BID #14 cap Referrals: Melchor Stevens MD [Primary Care Provider] - 1-2 days
[2017-06-23] MEDS ORDERED: MORPHINE SULFATE 5 MG/ML SYRINGE IM STA ×2 (03:00→03:40)
[2017-06-23 03:08] LABS: Appearance,Urine Clear (Clear); Bilirubin,Urine Negative (Negative); Blood,Urine Large (Negative); Color,Urine Yellow; Glucose,Urine (UA) Negative (Negative); Ketones,Urine Negative (Negative); Leukocyte Esterase,Urine Negative (Negative); Mucus,Urine Rare /hpf; Nitrite,Urine Negative (Negative); PH, Urine 5.5 (5.0-8.0); Protein,Urine Trace (Negative); RBC,Urine 174 /hpf (0-5); Specific Gravity,Urine 1.014 (1.001-1.035); Squamous Epithelial Cell,Urine 2 /hpf (0-4); Urobilinogen,Urine <2.0 mg/dL (<2.0); WBC,Urine 49 /hpf (0-5)
[2017-06-23] MEDS ORDERED: KETOROLAC 30 MG/ML 1 ML VIAL IM STA (03:40)
--- NOTE | 2017-06-23 04:12 | XR ---
EXAM: XR Abdomen, 1 View CLINICAL HISTORY: Reason: Pain TECHNIQUE: Frontal supine view of the abdomen/pelvis. COMPARISON: 06/20/2017 FINDINGS: Intraperitoneal space: No pneumatosis or pneumoperitoneum. Gastrointestinal tract: Nonspecific bowel gas pattern. No dilation. Bones/joints: No acute fracture or malalignment. Soft tissues: Surgical clips project over the right upper quadrant. IMPRESSION: No acute findings.
[2017-06-23 04:57] VITALS: BP 98/57; PULSE 80; RESP 18; TEMP 97.1
== END 2017-06-23 04:57 | disposition home or self-care (01) ==
LOC: EC 02:10
DX: N39.0 Urinary tract infection, site not specified (principal); N23 Unspecified renal colic; I10 Essential (primary) hypertension; F31.9 Bipolar disorder, unspecified; F90.9 Attention-deficit hyperactivity disorder, unspecified type; F41.9 Anxiety disorder, unspecified; F17.200 Nicotine dependence, unspecified, uncomplicated; Z79.899 Other long term (current) drug therapy; Z88.0 Allergy status to penicillin; Z88.2 Allergy status to sulfonamides; Z91.018 Allergy to other foods; Z88.8 Allergy status to other drugs, medicaments and biological substances; Z91.041 Radiographic dye allergy status
CPT/HCPCS: 81001; 81025; 87086; 74000; 99284; 96372 ×3; J1885; J2274

== ENCOUNTER 2017-06-25 16:57 | Emergency (ER) | payer OTHER ==
[2017-06-25] MEDS ORDERED: SODIUM CHLORIDE 0.9% 1,000 ML IV ONE (17:00)
[2017-06-25 17:07] VITALS: TEMP 97.5
[2017-06-25 17:10] LABS: Glucose,Whole Blood 112 mg/dL (75-99)
[2017-06-25] MEDS ORDERED: KETAMINE 50 MG/ML 10 ML VIAL IM ONE (17:10)
--- NOTE | 2017-06-25 17:10 | ED ---
Altered Mental Status HPI - General Source: EMS, RN notes reviewed, old records reviewed - History of Present Illness MD Complaint: altered mental status, confusion <Jame Roche - Last Filed: 06/25/17 19:10> <Jame Bishop - Last Filed: 06/25/17 21:28> - General Stated Complaint: Alter Mental Staus Time Seen by Provider: 06/25/17 16:57 - History of Present Illness Initial Comments: This is a 42-year-old female with a history of multiple visits to this emergency department including flank pain psychosis altered mental status hydronephrosis in the past and dizziness was brought in by EMS because of altered mental status today. Apparently patient was found have blood sugars are running in the 70s all day and EMS read it was 60 after one half amp of glucose he was 176. She was whining and minimally communicative and route to. Patient he is perseverating that she wants her mother. No reports of trauma no other information available at this time. She was recently admitted to the mental health unit for acute psychotic episode. (Jame Roche) - Related Data Home Medications Medication Instructions Recorded Confirmed oxyCODONE HCL/ACETAMINOPHEN 1 tab PO TID PRN 04/08/16 06/25/17 [Percocet 10-325 mg] Lisinopril [Zestril] 10 mg PO HS 03/07/17 06/25/17 SUMAtriptan SUCCINATE [Imitrex] 100 mg PO DAILY PRN 04/25/17 06/25/17 Ibuprofen [Motrin] 600 mg PO BID PRN 05/06/17 06/25/17 LORazepam [Ativan] 1 mg PO DAILY PRN 06/17/17 06/25/17 hydrOXYzine PAMOATE [Vistaril] 25 mg PO TID@0900,1300,1700 06/17/17 06/25/17 Previous Rx's Medication Instructions Recorded Dicyclomine [Bentyl] 10 mg PO QID cap 06/13/17 Insulin Aspart [NovoLOG 5 unit SQ AC-TID #1 vial 06/13/17 (formulary)] Insulin Detemir [Levemir] 15 unit SQ HS #1 syr 06/13/17 Meloxicam [Mobic] 15 mg PO W/SUPPER #30 tab 06/13/17 OXcarbazepine [Trileptal] 300 mg PO BID #60 tab 06/13/17 PARoxetine [Paxil] 60 mg PO HS #30 tab 06/13/17 Pantoprazole [Protonix] 40 mg PO AC-BRKFST #30 tablet. 06/13/17 Ziprasidone [Geodon] 40 mg PO PC-BRKFST #30 cap 06/13/17 Ziprasidone [Geodon] 80 mg PO HS #30 cap 06/13/17 metFORMIN HCL [Glucophage] 1,000 mg PO BID-W/MEALS tab 06/13/17 Clindamycin [Cleocin] 450 mg PO Q8HR #90 capsule 06/17/17 Fluconazole [Diflucan] 150 mg PO ONCE #1 tab 06/17/17 Nitrofurantoin Macrocrystal 100 mg PO BID #14 cap 06/23/17 [Macrodantin] Allergies Allergy/AdvReac Type Severity Reaction Status Date / Time bupropion HCl Allergy Rash/Hives Verified 06/25/17 17:07 [From Wellbutrin] Iodinated Contrast- Oral and Allergy Anaphylaxis Verified 06/25/17 17:07 IV Dye [Iodinated Contrast Media - IV Dye] orange juice [[place]] Allergy Rash/Hives Verified 06/25/17 17:07 Sulfa (Sulfonamide Allergy Rash/Hives Verified 06/25/17 17:07 Antibiotics) Penicillins AdvReac Nausea & Verified 06/25/17 17:07 Vomiting Review of Systems ROS Other: All systems not noted in ROS Statement are negative. Limitations: ROS unobtainable due to patients medical condition <Jame Roche - Last Filed: 06/25/17 19:10> ROS Other: All systems not noted in ROS Statement are negative. <Jame Bishop - Last Filed: 06/25/17 21:28> ROS Statement: Those systems with pertinent positive or pertinent negative responses have been documented in the HPI. 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 Pt states that about 6 months ago she started with skin discoloration L ankle that has increased in size-she saw a wire twister who prescibed antibiotic cream with no improvement-she also states the skin feels tight in that area and that her ankle now will occasionally "pop." History of Any Multi-Drug Resistant Organisms: None Reported Date of last positivie culture/infection: 05/14/17 MDRO Source:: ESBL URINE Past Surgical History: Bladder Surgery, Section, Cholecystectomy, Hysterectomy, Orthopedic Surgery, Tubal Ligation Additional Past Surgical History / Comment(s): R ovarian cystectomy, laparoscopic surgery for L ovary that had attached to the bowel, D&C, numerous lithotripsies, nephroscopies, cystoscopies and stents to ureters-none in place at this time, L robotic pyeloplasty with post op infection around kidney which then required a picc line/later removed (pt states was not MRSA), L rotator cuff repair, L wrist tendon surgery, lithotripsy Past Anesthesia/Blood Transfusion Reactions: Family History of Problems w/ Anesthesia Additional Past Anesthesia/Blood Transfusion Reaction / Comment(s): dad-hard time waking up due to enzyme problems in liver Past Psychological History: ADD/ADHD, Anxiety, Bipolar, Depression Smoking Status: Current every day smoker Past Alcohol Use History: None Reported Past Drug Use History: None Reported - Past Family History Brother(s) Family Medical History: Cancer Additional Family Medical History / Comment(s): testicular Father Family Medical History: Coronary Artery Disease (CAD), CVA/TIA, Diabetes Mellitus, Renal Disease Additional Family Medical History / Comment(s): GLAUCOMA,NEUROPATHY HAD TRIPLE CABG, with dementia Mother Family Medical History: Hyperlipidemia Additional Family Medical History / Comment(s): DDD, HAD 3 vessel CABG AGE 53. <Jame Roche - Last Filed: 06/25/17 19:10> General Exam <Jame Roche - Last Filed: 06/25/17 19:10> <Jame Bishop - Last Filed: 06/25/17 21:28> - General Exam Comments Initial Comments: This is a well-developed well-nourished awake but uncooperative female she is crying and asking for her mother (Jame Roche) Course <Jame Roche - Last Filed: 06/25/17 19:10> <Jame Bishop - Last Filed: 06/25/17 21:28> Vital Signs 06/25/17 17:00 Temperature 97.5 F L Respiratory 22 Rate Blood Pressure 144/111 - Reevaluation(s) Reevaluation #1: 06/25/17 19:10 I did discuss the initial presentation with family members. His bleeding is that the patient may have mixed up her medication and not taken her anxiety lytic for 4 days. She also may have mixed up her stomach medication with the anxiety medication. This is unclear at this time (Jame Roche) Reevaluation #2: 06/25/17 19:11 The patient's care will be endorsed to Dr. Bishop will make the final disposition (Jame Roche) Patient's care signed out at shift change awaiting altered mental status workup , CT brain negative for acute findings, chest x-ray negative for focal pneumonia or acute intrathoracic process, laboratory studies within normal limits, urinalysis negative for infection. Patient is reevaluated. She is alert and oriented, she is having hallucinations she has had this in the past she does have mental health history and she has been admitted for psychiatric reasons in the past. She was medically cleared at 2014 awaiting EPS evaluation. 06/25/17 20:14 (Jame Bishop) Procedures <Jame Roche - Last Filed: 06/25/17 19:10> <Jame Bishop - Last Filed: 06/25/17 21:28> - Procedures Initial comment: The patient require intramuscular ketamine for sedation and she was totally uncooperative with the evaluation and very hysterical. She did relay require some IV Ativan. I did administer the ketamine personally. 1 each thigh. Patient did seem to respond. (Jame Roche) Medical Decision Making - Lab Data Result diagrams: 06/25/17 18:13 06/25/17 18:13 - EKG Data -: EKG Interpreted by Me EKG shows normal: sinus rhythm Rate: tachycardia (Sinus tachycardia with a rate of 120 CO interval 174 QRS 74 QT since QTC of 320/[address]-T wave changes) <Jame Roche - Last Filed: 06/25/17 19:10> - Lab Data Result diagrams: 06/25/17 18:13 06/25/17 18:13 <Jame Bishop - Last Filed: 06/25/17 21:28> - Medical Decision Making 42-year-old female presents with anxiety and agitation. Patient has mental health history. She has not been taking her antidepressant and antianxiety medications for the past 4 days secondary to a medication mixup. She was medically cleared and evaluated by EPS. EPS this patient is safe for discharge. I did reevaluate the patient, patient, and her mother and sister-in- law are agreeable with discharge. She is given the crisis hotline number. She has an appointment with her psychiatrist on of this week. She will return to the emergency department with any worsening symptoms. (Jame Bishop) - Lab Data Lab Results 06/25/17 06/25/17 06/25/17 Range/Units 17:09 18:13 18:13 WBC (3.8-10.6) k/uL RBC (3.80-5.40) m/uL Hgb (11.4-16.0) gm/dL Hct (34.0-46.0) % MCV (80.0-100.0) fL MCH (25.0-35.0) pg MCHC (31.0-37.0) g/dL RDW (11.5-15.5) % Plt Count (150-450) k/uL Neutrophils % % Lymphocytes % % Monocytes % % Eosinophils % % Basophils % % Neutrophils # (1.3-7.7) k/uL Lymphocytes # (1.0-4.8) k/uL Monocytes # (0-1.0) k/uL Eosinophils # (0-0.7) k/uL Basophils # (0-0.2) k/uL PT (9.0-12.0) sec INR (<1.2) APTT (22.0-30.0) sec Sodium (137-145) mmol/L Potassium (3.5-5.1) mmol/L Chloride (98-107) mmol/L Carbon Dioxide (22-30) mmol/L Anion Gap mmol/L BUN (7-17) mg/dL Creatinine (0.52-1.04) mg/dL Est GFR (MDRD) Af Amer (>60 ml/min/1.73 sqM) Est GFR (MDRD) Non-Af (>60 ml/min/1.73 sqM) Glucose (74-99) mg/dL POC Glucose (mg/dL) 112 H (75-99) mg/dL POC Glu Pepper Cutter ID Arelis Terry Osmolality (280-301) mosm/kg Calcium (8.4-10.2) mg/dL Total Bilirubin (0.2-1.3) mg/dL AST (14-36) U/L ALT (9-52) U/L Alkaline Phosphatase (38-126) U/L Ammonia 12 (<30) umol/L Total Creatine Kinase 112 (30-135) U/L CK-MB (CK-2) 0.7 (0.0-2.4) ng/mL CK-MB (CK-2) Rel Index 0.6 Troponin I <0.012 (0.000-0.034) ng/mL Total Protein (6.3-8.2) g/dL Albumin (3.5-5.0) g/dL Urine Color Urine Appearance (Clear) Urine pH (5.0-8.0) Ur Specific [place] (1.001-1.035) Urine Protein (Negative) Urine Glucose (UA) (Negative) Urine Ketones (Negative) Urine Blood (Negative) Urine Nitrite (Negative) Urine Bilirubin (Negative) Urine Urobilinogen (<2.0) mg/dL Ur Leukocyte Esterase (Negative) Urine HCG, Qual (Not Detectd) Salicylates mg/dL Urine Opiates Screen (NotDetected) Ur Oxycodone Screen (NotDetected) Urine Methadone Screen (NotDetected) Ur Propoxyphene Screen (NotDetected) Acetaminophen ug/mL Ur Barbiturates Screen (NotDetected) U Tricyclic Antidepress (NotDetected) Ur Phencyclidine Scrn (NotDetected) Ur Amphetamines Screen (NotDetected) U Methamphetamines Scrn (NotDetected) U Benzodiazepines Scrn (NotDetected) Urine Cocaine Screen (NotDetected) U Marijuana (THC) Screen (NotDetected) Serum Alcohol mg/dL 06/25/17 06/25/17 06/25/17 Range/Units 18:13 18:13 18:13 WBC 11.0 H (3.8-10.6) k/uL RBC 4.28 (3.80-5.40) m/uL Hgb 12.2 (11.4-16.0) gm/dL Hct 37.5 (34.0-46.0) % MCV 87.7 (80.0-100.0) fL MCH 28.5 (25.0-35.0) pg MCHC 32.4 (31.0-37.0) g/dL RDW 14.6 (11.5-15.5) % Plt Count 365 (150-450) k/uL Neutrophils % 60 % Lymphocytes % 31 % Monocytes % 5 % Eosinophils % 2 % Basophils % 1 % Neutrophils # 6.6 (1.3-7.7) k/uL Lymphocytes # 3.5 (1.0-4.8) k/uL Monocytes # 0.5 (0-1.0) k/uL Eosinophils # 0.3 (0-0.7) k/uL Basophils # 0.1 (0-0.2) k/uL PT 9.9 (9.0-12.0) sec INR 1.0 (<1.2) APTT 26.8 (22.0-30.0) sec Sodium 139 (137-145) mmol/L Potassium 4.7 (3.5-5.1) mmol/L Chloride 105 (98-107) mmol/L Carbon Dioxide 21 L (22-30) mmol/L Anion Gap 13 mmol/L BUN 13 (7-17) mg/dL Creatinine 0.80 (0.52-1.04) mg/dL Est GFR (MDRD) Af Amer >60 (>60 ml/min/1.73 sqM) Est GFR (MDRD) Non-Af >60 (>60 ml/min/1.73 sqM) Glucose 72 L (74-99) mg/dL POC Glucose (mg/dL) (75-99) mg/dL POC Glu Pepper Cutter ID Osmolality 279 L (280-301) mosm/kg Calcium 9.6 (8.4-10.2) mg/dL Total Bilirubin 0.5 (0.2-1.3) mg/dL AST 29 (14-36) U/L ALT 36 (9-52) U/L Alkaline Phosphatase 77 (38-126) U/L Ammonia (<30) umol/L Total Creatine Kinase (30-135) U/L CK-MB (CK-2) (0.0-2.4) ng/mL CK-MB (CK-2) Rel Index Troponin I (0.000-0.034) ng/mL Total Protein 7.6 (6.3-8.2) g/dL Albumin 4.5 (3.5-5.0) g/dL Urine Color Urine Appearance (Clear) Urine pH (5.0-8.0) Ur Specific [place] (1.001-1.035) Urine Protein (Negative) Urine Glucose (UA) (Negative) Urine Ketones (Negative) Urine Blood (Negative) Urine Nitrite (Negative) Urine Bilirubin (Negative) Urine Urobilinogen (<2.0) mg/dL Ur Leukocyte Esterase (Negative) Urine HCG, Qual (Not Detectd) Salicylates <1.0 mg/dL Urine Opiates Screen (NotDetected) Ur Oxycodone Screen (NotDetected) Urine Methadone Screen (NotDetected) Ur Propoxyphene Screen (NotDetected) Acetaminophen <10.0 ug/mL Ur Barbiturates Screen (NotDetected) U Tricyclic Antidepress (NotDetected) Ur Phencyclidine Scrn (NotDetected) Ur Amphetamines Screen (NotDetected) U Methamphetamines Scrn (NotDetected) U Benzodiazepines Scrn (NotDetected) Urine Cocaine Screen (NotDetected) U Marijuana (THC) Screen (NotDetected) Serum Alcohol <10 mg/dL 06/25/17 06/25/17 Range/Units 18:23 18:23 WBC (3.8-10.6) k/uL RBC (3.80-5.40) m/uL Hgb (11.4-16.0) gm/dL Hct (34.0-46.0) % MCV (80.0-100.0) fL MCH (25.0-35.0) pg MCHC (31.0-37.0) g/dL RDW (11.5-15.5) % Plt Count (150-450) k/uL Neutrophils % % Lymphocytes % % Monocytes % % Eosinophils % % Basophils % % Neutrophils # (1.3-7.7) k/uL Lymphocytes # (1.0-4.8) k/uL Monocytes # (0-1.0) k/uL Eosinophils # (0-0.7) k/uL Basophils # (0-0.2) k/uL PT (9.0-12.0) sec INR (<1.2) APTT (22.0-30.0) sec Sodium (137-145) mmol/L Potassium (3.5-5.1) mmol/L Chloride (98-107) mmol/L Carbon Dioxide (22-30) mmol/L Anion Gap mmol/L BUN (7-17) mg/dL Creatinine (0.52-1.04) mg/dL Est GFR (MDRD) Af Amer (>60 ml/min/1.73 sqM) Est GFR (MDRD) Non-Af (>60 ml/min/1.73 sqM) Glucose (74-99) mg/dL POC Glucose (mg/dL) (75-99) mg/dL POC Glu Pepper Cutter ID Osmolality (280-301) mosm/kg Calcium (8.4-10.2) mg/dL Total Bilirubin (0.2-1.3) mg/dL AST (14-36) U/L ALT (9-52) U/L Alkaline Phosphatase (38-126) U/L Ammonia (<30) umol/L Total Creatine Kinase (30-135) U/L CK-MB (CK-2) (0.0-2.4) ng/mL CK-MB (CK-2) Rel Index Troponin I (0.000-0.034) ng/mL Total Protein (6.3-8.2) g/dL Albumin (3.5-5.0) g/dL Urine Color [place] Yellow Urine Appearance Clear (Clear) Urine pH 5.5 (5.0-8.0) Ur Specific [place] 1.007 (1.001-1.035) Urine Protein Negative (Negative) Urine Glucose (UA) Negative (Negative) Urine Ketones Negative (Negative) Urine Blood Negative (Negative) Urine Nitrite Negative (Negative) Urine Bilirubin Negative (Negative) Urine Urobilinogen <2.0 (<2.0) mg/dL Ur Leukocyte Esterase Negative (Negative) Urine HCG, Qual Not Detected (Not Detectd) Salicylates mg/dL Urine Opiates Screen Not Detected (NotDetected) Ur Oxycodone Screen Not Detected (NotDetected) Urine Methadone Screen Not Detected (NotDetected) Ur Propoxyphene Screen Not Detected (NotDetected) Acetaminophen ug/mL Ur Barbiturates Screen Not Detected (NotDetected) U Tricyclic Antidepress Not Detected (NotDetected) Ur Phencyclidine Scrn Not Detected (NotDetected) Ur Amphetamines Screen Not Detected (NotDetected) U Methamphetamines Scrn Not Detected (NotDetected) U Benzodiazepines Scrn Detected H (NotDetected) Urine Cocaine Screen Not Detected (NotDetected) U Marijuana (THC) Screen Not Detected (NotDetected) Serum Alcohol mg/dL Disposition <Jame Roche - Last Filed: 06/25/17 19:10> Time of Disposition: 21:28 <Jame Bishop - Last Filed: 06/25/17 21:28> Clinical Impression: Major depressive disorder, recurrent, severe with psychotic features Disposition: HOME SELF-CARE Condition: Good Instructions: Depression (ED), Anxiety (ED) Additional Instructions: Please maintain 's appointment, call crisis Center with any issues, return to the emergency department with worsening symptoms. Referrals: Melchor Stevens MD [Primary Care Provider] - 1-2 days
[2017-06-25] MEDS ORDERED: LORazepam 2 MG/ML INJ IV STA ×3 (17:51→21:27)
[2017-06-25 18:24] LABS: Basophils # (A) 0.1 k/uL (0-0.2); Basophils % (A) 1 %; Eosinophils # (A) 0.3 k/uL (0-0.7); Eosinophils % (A) 2 %; HCT 37.5 % (34.0-46.0); HGB 12.2 gm/dL (11.4-16.0); Lymphocytes # (A) 3.5 k/uL (1.0-4.8); Lymphocytes % (A) 31 %; MCH 28.5 pg (25.0-35.0); MCHC 32.4 g/dL (31.0-37.0); MCV 87.7 fL (80.0-100.0); Mean Platelet Volume 6.6; Monocytes # (A) 0.5 k/uL (0-1.0); Monocytes % (A) 5 %; Neutrophils # (A) 6.6 k/uL (1.3-7.7); Neutrophils % (A) 60 %; Platelet Count 365 k/uL (150-450); RBC 4.28 m/uL (3.80-5.40); RDW 14.6 % (11.5-15.5)
[2017-06-25 18:31] LABS: Appearance,Urine Clear (Clear); Bilirubin,Urine Negative (Negative); Blood,Urine Negative (Negative); Color,Urine Light Yellow; Glucose,Urine (UA) Negative (Negative); Ketones,Urine Negative (Negative); Leukocyte Esterase,Urine Negative (Negative); Nitrite,Urine Negative (Negative); PH, Urine 5.5 (5.0-8.0); Protein,Urine Negative (Negative); Specific Gravity,Urine 1.007 (1.001-1.035); Urobilinogen,Urine <2.0 mg/dL (<2.0)
[2017-06-25 18:32] LABS: Partial Thromboplastin Time 26.8 sec (22.0-30.0); Prothrombin Time 9.9 sec (9.0-12.0)
[2017-06-25 18:37] LABS: ALT 36 U/L (9-52); AST 29 U/L (14-36); Acetaminophen <10.0 ug/mL; Albumin 4.5 g/dL (3.5-5.0); Alcohol <10 mg/dL; Alkaline Phosphatase 77 U/L (38-126); Anion Gap 13 mmol/L; Blood Urea Nitrogen 13 mg/dL (7-17); Calcium 9.6 mg/dL (8.4-10.2); Carbon Dioxide 21 mmol/L (22-30); Chloride 105 mmol/L (98-107); Glucose 72 mg/dL (74-99); Potassium 4.7 mmol/L (3.5-5.1); Salicylate <1.0 mg/dL; Sodium 139 mmol/L (137-145); Total Bilirubin 0.5 mg/dL (0.2-1.3); Total Protein 7.6 g/dL (6.3-8.2)
[2017-06-25 18:43] LABS: Amphetamine Screen,Urine Not Detected (NotDetected); Barbiturate Screen,Urine Not Detected (NotDetected); Benzodiazepines Screen,Urine Detected (NotDetected); Cocaine Screen,Urine Not Detected (NotDetected); Methadone Screen, Urine Not Detected (NotDetected); Opiate Screen,Urine Not Detected (NotDetected); Oxycodone Screen, Urine Not Detected (NotDetected); Phencyclidine Screen,Urine Not Detected (NotDetected); Tricyclic Antidepressant,Urine Not Detected (NotDetected); Urn Cannabinoid Scrn Not Detected (NotDetected)
[2017-06-25 18:44] LABS: Creatine Kinase 112 U/L (30-135)
[2017-06-25 18:57] LABS: Troponin I <0.012 ng/mL (0.000-0.034)
--- NOTE | 2017-06-25 18:57 | XR ---
EXAMINATION TYPE: XR chest 1V portable DATE OF EXAM: 06/25/2017 COMPARISON: 06/03/2017 HISTORY: Chest pain TECHNIQUE: Single frontal view of the chest is obtained. FINDINGS: Heart and mediastinum are normal. Lungs are clear. Diaphragm is normal. Bony thorax is int act. IMPRESSION: Normal chest. No change.
--- NOTE | 2017-06-25 19:03 | CT ---
EXAMINATION TYPE: CT brain wo con DATE OF EXAM: 06/25/2017 COMPARISON: 06/03/2017 HISTORY: mental status changes CT DLP: 1053.1 mGycm. Automated Exposure Control for Dose Reduction was Utilized. TECHNIQUE: CT scan of the head is performed without contrast. FINDINGS: Ventricles and sulci appear normal. There is no mass effect nor midline shift. There is no sign of intracranial hemorrhage. The calvarium is intact. CONCLUSION: Negative CT scan of the brain. No change.
[2017-06-25 19:05] LABS: Creatine Kinase MB 0.7 ng/mL (0.0-2.4)
[2017-06-25 22:06] VITALS: BP 152/99; PULSE 98; RESP 18
== END 2017-06-25 22:06 | disposition home or self-care (01) ==
LOC: EC 16:57
DX: F33.3 Major depressive disorder, recurrent, severe with psychotic symptoms (principal); R00.0 Tachycardia, unspecified; R45.83 Excessive crying of child, adolescent or adult; R41.82 Altered mental status, unspecified; I10 Essential (primary) hypertension; F41.9 Anxiety disorder, unspecified; F17.200 Nicotine dependence, unspecified, uncomplicated; Z79.899 Other long term (current) drug therapy; Z88.0 Allergy status to penicillin; Z88.2 Allergy status to sulfonamides; Z88.8 Allergy status to other drugs, medicaments and biological substances; Z91.018 Allergy to other foods; Z91.041 Radiographic dye allergy status
CPT/HCPCS: 99285 ×2; 96374 ×2; 96376 ×3; 96361 ×6; 99152 ×2; 36415; 93005; 83930; 80053; 82140; 82550; 82553; 84484; 85025; 85610; 85730; 81003; 81025; 80306; 83520 ×2; 80320; 71045; 70450; J2060

== ENCOUNTER 2017-06-30 16:05 | Inpatient (IN) | payer MEDICAID, OTHER ==
[2017-06-30] MEDS ORDERED: LORazepam 1 MG TAB PO STA (16:43)
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
[2017-06-30] MEDS ORDERED: ZIPRASIDONE 20 MG VIAL IM STA (17:07)
[2017-06-30 18:42] LABS: Glucose,Whole Blood 110 mg/dL (75-99)
[2017-06-30 19:32] LABS: Amphetamine Screen,Urine Not Detected (NotDetected); Cocaine Screen,Urine Not Detected (NotDetected); Opiate Screen,Urine Not Detected (NotDetected); Phencyclidine Screen,Urine Not Detected (NotDetected); Urn Cannabinoid Scrn Not Detected (NotDetected)
[2017-06-30] MEDS ORDERED: IBUPROFEN 600 MG TAB PO PRN (19:32)
[2017-06-30 19:33] LABS: Barbiturate Screen,Urine Not Detected (NotDetected); Benzodiazepines Screen,Urine Detected (NotDetected); Methadone Screen, Urine Not Detected (NotDetected); Oxycodone Screen, Urine Not Detected (NotDetected); Tricyclic Antidepressant,Urine Not Detected (NotDetected)
[2017-06-30] MEDS ORDERED: ACETAMINOPHEN TAB 325 MG TAB PO PRN (19:33)
[2017-06-30] MEDS ORDERED: MAGNESIUM HYDROXIDE 2,400 MG/10 ML CUP PO PRN (19:33)
[2017-06-30] MEDS ORDERED: MAG HYDROX/AL HYDROX/SIMETH 30 ML CUP PO PRN (19:33)
[2017-06-30] MEDS: metFORMIN 500 MG TAB PO SCH (19:56)
[2017-06-30 20:13] LABS: Glucose,Whole Blood 125 mg/dL (75-99)
[2017-06-30] MEDS: INSULIN ASPART 100 UNIT/ML 1 ML 10 ML VIAL SQ SCH (20:27)
[2017-06-30 20:53] VITALS: BMI 72.7
[2017-06-30] MEDS ORDERED: PARoxetine 20 MG TAB PO SCH (21:00)
[2017-06-30] MEDS: INSULIN DETEMIR 100 UNIT/ML 10 ML VIAL SQ SCH (21:02)
[2017-06-30] MEDS: LISINOPRIL 10 MG TAB PO SCH (21:03)
[2017-06-30] MEDS: OXcarbazepine 300 MG TAB PO SCH (21:03)
[2017-06-30] MEDS: ZIPRASIDONE 80 MG CAP PO SCH (21:03)
[2017-06-30] MEDS: HALOPERIDOL LACTATE 5 MG/ML 1 ML VIAL IM PRN (22:45)
[2017-07-01 06:50] LABS: Glucose,Whole Blood 129 mg/dL (75-99)
[2017-07-01] MEDS: INSULIN ASPART 100 UNIT/ML 1 ML 10 ML VIAL SQ SCH ×7 (07:48→20:20)
[2017-07-01] MEDS: ZIPRASIDONE 40 MG CAP PO SCH (08:21)
[2017-07-01] MEDS: hydrOXYzine PAMOATE 25 MG CAP PO SCH ×3 (08:21→17:41)
[2017-07-01] MEDS: PANTOPRAZOLE 40 MG TABLET PO SCH (08:22)
[2017-07-01] MEDS: metFORMIN 500 MG TAB PO SCH ×2 (08:22→17:41)
[2017-07-01] MEDS: OXcarbazepine 300 MG TAB PO SCH (08:22)
[2017-07-01 11:33] LABS: Basophils # (A) 0.1 k/uL (0-0.2); Basophils % (A) 1 %; Eosinophils # (A) 0.3 k/uL (0-0.7); Eosinophils % (A) 3 %; HCT 39.6 % (34.0-46.0); HGB 13.1 gm/dL (11.4-16.0); Lymphocytes # (A) 2.3 k/uL (1.0-4.8); Lymphocytes % (A) 25 %; MCH 29.3 pg (25.0-35.0); MCHC 33.1 g/dL (31.0-37.0); MCV 88.3 fL (80.0-100.0); Mean Platelet Volume 6.5; Monocytes # (A) 0.4 k/uL (0-1.0); Monocytes % (A) 4 %; Neutrophils # (A) 5.8 k/uL (1.3-7.7); Neutrophils % (A) 65 %; Platelet Count 343 k/uL (150-450); RBC 4.49 m/uL (3.80-5.40); RDW 13.1 % (11.5-15.5)
[2017-07-01 11:43] LABS: ALT 41 U/L (9-52); AST 25 U/L (14-36); Albumin 4.5 g/dL (3.5-5.0); Alkaline Phosphatase 81 U/L (38-126); Anion Gap 12 mmol/L; Blood Urea Nitrogen 18 mg/dL (7-17); Calcium 10.7 mg/dL (8.4-10.2); Carbon Dioxide 23 mmol/L (22-30); Chloride 105 mmol/L (98-107); Cholesterol 229 mg/dL (<200); Glucose 99 mg/dL (74-99); HDL Cholesterol 49 mg/dL (40-60); LDL Cholesterol,Calculated 145 mg/dL (0-99); Potassium 5.8 mmol/L (3.5-5.1); Sodium 140 mmol/L (137-145); Total Bilirubin 0.3 mg/dL (0.2-1.3); Total Protein 7.5 g/dL (6.3-8.2); Triglycerides 174 mg/dL (<150)
[2017-07-01 11:44] LABS: Glucose,Whole Blood 117 mg/dL (75-99)
[2017-07-01] MEDS: LORATADINE 10 MG TAB PO SCH (12:05)
[2017-07-01] MEDS: oxyCODONE-APAP 5-325MG 1 EACH TAB PO PRN ×2 (12:32→18:44)
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
[2017-07-01] MEDS ORDERED: SODIUM POLYSTYRENE SULFONATE 15 GM/60 ML BOTTLE PO STA (17:04)
[2017-07-01 17:40] LABS: Glucose,Whole Blood 106 mg/dL (75-99)
[2017-07-01 19:43] LABS: Hemoglobin A1C 6.3 % (4.0-6.0)
[2017-07-01 20:13] LABS: Glucose,Whole Blood 144 mg/dL (75-99)
[2017-07-01] MEDS: INSULIN DETEMIR 100 UNIT/ML 10 ML VIAL SQ SCH (20:19)
[2017-07-01] MEDS: PARoxetine 20 MG TAB PO SCH (20:20)
[2017-07-01] MEDS: ZIPRASIDONE 80 MG CAP PO SCH (20:21)
[2017-07-01] MEDS: LISINOPRIL 10 MG TAB PO SCH (20:21)
[2017-07-01] MEDS ORDERED: MELATONIN 5 MG TABLET PO SCH (22:15)
[2017-07-01] MEDS: HALOPERIDOL LACTATE 5 MG/ML 1 ML VIAL IM PRN (23:12)
[2017-07-02] MEDS: oxyCODONE-APAP 5-325MG 1 EACH TAB PO PRN ×2 (00:26→08:11)
[2017-07-02 01:18] VITALS: TEMP 98
[2017-07-02 06:37] LABS: Glucose,Whole Blood 95 mg/dL (75-99)
[2017-07-02] MEDS: INSULIN ASPART 100 UNIT/ML 1 ML 10 ML VIAL SQ SCH ×7 (08:06→20:11)
[2017-07-02] MEDS: PANTOPRAZOLE 40 MG TABLET PO SCH (08:11)
[2017-07-02] MEDS: metFORMIN 500 MG TAB PO SCH ×2 (08:11→17:55)
[2017-07-02] MEDS: ZIPRASIDONE 40 MG CAP PO SCH (08:54)
[2017-07-02] MEDS: hydrOXYzine PAMOATE 25 MG CAP PO SCH (08:54)
[2017-07-02] MEDS: LORATADINE 10 MG TAB PO SCH (08:55)
[2017-07-02] MEDS: SERTRALINE 25 MG TAB PO SCH (08:55)
[2017-07-02] MEDS ORDERED: hydrOXYzine PAMOATE 25 MG CAP PO PRN (09:07)
--- NOTE | 2017-07-02 09:11 | P.PN ---
Progress Note - Text Interval history: The patient is found in the hallway she follows me to an interview room. She reports her mood is much improved. She did had difficulty sleeping last night and received an injection to help her sleep. Melatonin was tried without success prior to the injection. She states she is attending groups. She reports that the auditory hallucinations have reduced significantly to the point of almost being gone. She has been participating in groups. She had a visit from a friend the last evening and has been in contact with her sister and mother via phone. She is hoping to go to her outpatient therapy appointment with being mental health tomorrow. Mental status exam: The patient is an overweight female appearing her stated age. She is dressed in her own clothing hygiene grooming are adequate. She reports her mood is improved she is feeling happier. She has noted a significant reduction of auditory hallucinations. She states that she understands that they occur at times of crisis or stress. She is reporting no acute suicidal or homicidal ideation intent or plan. Insight and judgment improving. She demonstrates no verbal or physical aggressiveness she demonstrates no abnormal involuntary movements. Plan: The patient will continue on her current medications we will continue with a plan of cross tapering off of Paxil and onto Zoloft. If she demonstrated sufficient clinical stability we will consider discharging her tomorrow so that she may attend her first counseling session with [facility]. We will monitor for safety and encourage her participation in the milieu.
[2017-07-02 10:05] LABS: Anion Gap 15 mmol/L; Blood Urea Nitrogen 16 mg/dL (7-17); Calcium 9.7 mg/dL (8.4-10.2); Carbon Dioxide 22 mmol/L (22-30); Chloride 98 mmol/L (98-107); Glucose 173 mg/dL (74-99); Potassium 4.2 mmol/L (3.5-5.1); Sodium 135 mmol/L (137-145)
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
[2017-07-02 12:43] LABS: Glucose,Whole Blood 102 mg/dL (75-99)
[2017-07-02 15:53] LABS: Glucose,Whole Blood 99 mg/dL (75-99)
[2017-07-02 15:55] VITALS: RESP 16
[2017-07-02] MEDS ORDERED: SUMAtriptan SUCCINATE 50 MG TAB PO PRN (16:14)
[2017-07-02 17:49] LABS: Glucose,Whole Blood 111 mg/dL (75-99)
[2017-07-02 20:05] LABS: Glucose,Whole Blood 89 mg/dL (75-99)
[2017-07-02] MEDS: INSULIN DETEMIR 100 UNIT/ML 10 ML VIAL SQ SCH (20:16)
[2017-07-02] MEDS: ZIPRASIDONE 80 MG CAP PO SCH (20:17)
[2017-07-02] MEDS: LISINOPRIL 10 MG TAB PO SCH (20:17)
[2017-07-02] MEDS: PARoxetine 20 MG TAB PO SCH (20:17)
[2017-07-02] MEDS ORDERED: diphenhydrAMINE 50 MG CAP PO SCH (21:00)
[2017-07-02] MEDS ORDERED: traZODone HCL 50 MG TAB PO STA (22:52)
[2017-07-03 00:28] VITALS: BP 127/69; PULSE 78
[2017-07-03 06:45] LABS: Glucose,Whole Blood 101 mg/dL (75-99)
[2017-07-03] MEDS: INSULIN ASPART 100 UNIT/ML 1 ML 10 ML VIAL SQ SCH ×2 (08:08)
[2017-07-03] MEDS: LORATADINE 10 MG TAB PO SCH (08:51)
[2017-07-03] MEDS: metFORMIN 500 MG TAB PO SCH (08:51)
[2017-07-03] MEDS: ZIPRASIDONE 40 MG CAP PO SCH (08:51)
[2017-07-03] MEDS: SERTRALINE 25 MG TAB PO SCH (08:51)
[2017-07-03] MEDS: PANTOPRAZOLE 40 MG TABLET PO SCH (08:51)
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
[2017-07-03] MEDS: oxyCODONE-APAP 5-325MG 1 EACH TAB PO PRN (08:52)
[2017-07-03 10:12] LABS: Anion Gap 15 mmol/L; Blood Urea Nitrogen 17 mg/dL (7-17); Calcium 10.4 mg/dL (8.4-10.2); Carbon Dioxide 24 mmol/L (22-30); Chloride 100 mmol/L (98-107); Glucose 224 mg/dL (74-99); Potassium 4.5 mmol/L (3.5-5.1); Sodium 139 mmol/L (137-145)
== END 2017-07-03 09:39 | disposition home or self-care (01) | DRG 885 ==
LOC: EC 16:05 → 3MHU 19:08
PROVIDERS: ADMIT Psychiatry & Neurology Psychiatry; ATTEND Psychiatry & Neurology Psychiatry
DX: F33.3 Major depressive disorder, recurrent, severe with psychotic symptoms (principal); E87.5 Hyperkalemia; R45.1 Restlessness and agitation; I10 Essential (primary) hypertension; E11.9 Type 2 diabetes mellitus without complications; F41.0 Panic disorder [episodic paroxysmal anxiety]; G47.9 Sleep disorder, unspecified; F90.9 Attention-deficit hyperactivity disorder, unspecified type; F17.200 Nicotine dependence, unspecified, uncomplicated; M26.609 Unspecified temporomandibular joint disorder, unspecified side; K58.9 Irritable bowel syndrome, unspecified; E66.9 Obesity, unspecified; G89.29 Other chronic pain; Z79.1 Long term (current) use of non-steroidal anti-inflammatories (NSAID); Z68.34 Body mass index [BMI] 34.0-34.9, adult; Z87.442 Personal history of urinary calculi; Z90.710 Acquired absence of both cervix and uterus; Z87.19 Personal history of other diseases of the digestive system; Z79.899 Other long term (current) drug therapy; Z90.49 Acquired absence of other specified parts of digestive tract; Z98.51 Tubal ligation status; Z82.49 Family history of ischemic heart disease and other diseases of the circulatory system; Z82.3 Family history of stroke; Z83.3 Family history of diabetes mellitus; Z81.8 Family history of other mental and behavioral disorders; Z78.1 Physical restraint status; Z79.4 Long term (current) use of insulin; Z91.041 Radiographic dye allergy status; Z91.018 Allergy to other foods; Z88.0 Allergy status to penicillin; Z88.2 Allergy status to sulfonamides; Z88.8 Allergy status to other drugs, medicaments and biological substances; Z87.01 Personal history of pneumonia (recurrent); Z87.440 Personal history of urinary (tract) infections; Z86.69 Personal history of other diseases of the nervous system and sense organs; Z80.43 Family history of malignant neoplasm of testis
CPT/HCPCS: 36415; 80048; 80053; 80061; 80306; 82075; 83036; 84132; 84443; 85025; 96372; 99285

== ENCOUNTER 2017-07-24 18:52 | Emergency (ER) | payer OTHER ==
[2017-07-24 19:21] VITALS: TEMP 98.5
[2017-07-24] MEDS ORDERED: SODIUM CHLORIDE 0.9% 500 ML IV STA (20:58)
[2017-07-24] MEDS ORDERED: SODIUM CHLORIDE 0.9% 1,000 ML IV STA (20:58)
[2017-07-24] MEDS ORDERED: KETOROLAC 30 MG/ML 1 ML VIAL IVP STA (20:58)
[2017-07-24] MEDS ORDERED: ONDANSETRON 4 MG/2 ML VIAL IVP STA (20:58)
--- NOTE | 2017-07-24 21:18 | ED ---
Abdominal Pain HPI - General Chief Complaint: Abdominal Pain Stated Complaint: Flank pain Time Seen by Provider: 07/24/17 20:34 Source: patient Mode of arrival: ambulatory Limitations: no limitations - History of Present Illness Initial Comments: 42-year-old male patient presents to the emergency department today for complaints of left flank pain. Patient states that symptoms started on Sunday. States she did pass a small kidney stone on Sunday. States that the pain is persisted since then. States she did start taking Flomax she does have an extensive history of frequent kidney stones. Patient states that her urine has been more dark today. She states she is having some dysuria. She states that she did have low-grade temperatures yesterday and Sunday. She states she has not had a temperature today. States she has been taking her Flomax, Mobic, and Percocet for pain control. She states that these medications are not helping. She she's been nauseated and has vomited a couple times today. She denies any hematemesis, diarrhea, hematochezia, or melena. Patient denies any recent rash, shortness breath, chest pain, numbness, tingling, dizziness, weakness, hematuria , dysuria, urinary urgency, urinary frequency, headache, visual changes, or any other complaints. - Related Data Home Medications Medication Instructions Recorded Confirmed oxyCODONE HCL/ACETAMINOPHEN 1 tab PO TID PRN 04/08/16 07/24/17 [Percocet 10-325 mg] Lisinopril [Zestril] 10 mg PO HS 03/07/17 07/24/17 SUMAtriptan SUCCINATE [Imitrex] 100 mg PO DAILY PRN 04/25/17 07/24/17 FLUoxetine HCL [PROzac] 60 mg PO HS 07/24/17 07/24/17 Insulin Glargine,Hum.rec.anlog 5 unit SQ TID 07/24/17 07/24/17 [Basaglar Kwikpen U-100] LORazepam [Ativan] 1 mg PO QID PRN 07/24/17 07/24/17 OXcarbazepine [Trileptal] 300 mg PO BID 07/24/17 07/24/17 Pantoprazole [Protonix] 40 mg PO DAILY 07/24/17 07/24/17 Previous Rx's Medication Instructions Recorded Insulin Detemir [Levemir] 15 unit SQ HS #1 syr 06/13/17 metFORMIN HCL [Glucophage] 1,000 mg PO BID-W/MEALS tab 06/13/17 Loratadine [Claritin] 10 mg PO DAILY tab 07/03/17 Ziprasidone [Geodon] 40 mg PO PC-BRKFST #30 cap 07/03/17 Ziprasidone [Geodon] 80 mg PO HS #30 cap 07/03/17 hydrOXYzine PAMOATE [Vistaril] 25 mg PO BID PRN #60 cap 07/03/17 Allergies Allergy/AdvReac Type Severity Reaction Status Date / Time bupropion HCl Allergy Rash/Hives Verified 07/24/17 21:22 [From Wellbutrin] fentanyl Allergy Swelling Verified 07/24/17 21:22 Iodinated Contrast- Oral and Allergy Anaphylaxis Verified 07/24/17 21:22 IV Dye [Iodinated Contrast Media - IV Dye] orange juice [[place]] Allergy Rash/Hives Verified 07/24/17 21:22 Sulfa (Sulfonamide Allergy Rash/Hives Verified 07/24/17 21:22 Antibiotics) Penicillins AdvReac Nausea & Verified 07/24/17 21:22 Vomiting Review of Systems ROS Statement: Those systems with pertinent positive or pertinent negative responses have been documented in the HPI. ROS Other: All systems not noted in ROS Statement are negative. 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 Pt states that about 6 months ago she started with skin discoloration L ankle that has increased in size-she saw a gas operations analyst who prescibed antibiotic cream with no improvement-she also states the skin feels tight in that area and that her ankle now will occasionally "pop." History of Any Multi-Drug Resistant Organisms: None Reported Date of last positivie culture/infection: 05/14/17 MDRO Source:: ESBL URINE Past Surgical History: Bladder Surgery, Section, Cholecystectomy, Hysterectomy, Orthopedic Surgery, Tubal Ligation Additional Past Surgical History / Comment(s): R ovarian cystectomy, laparoscopic surgery for L ovary that had attached to the bowel, D&C, numerous lithotripsies, nephroscopies, cystoscopies and stents to ureters-none in place at this time, L robotic pyeloplasty with post op infection around kidney which then required a picc line/later removed (pt states was not MRSA), L rotator cuff repair, L wrist tendon surgery, lithotripsy Past Anesthesia/Blood Transfusion Reactions: Family History of Problems w/ Anesthesia Additional Past Anesthesia/Blood Transfusion Reaction / Comment(s): dad-hard time waking up due to enzyme problems in liver Past Psychological History: ADD/ADHD, Anxiety, Bipolar, Depression Smoking Status: Current every day smoker Past Alcohol Use History: None Reported Past Drug Use History: None Reported - Past Family History Brother(s) Family Medical History: Cancer Additional Family Medical History / Comment(s): testicular Father Family Medical History: Coronary Artery Disease (CAD), CVA/TIA, Diabetes Mellitus, Renal Disease Additional Family Medical History / Comment(s): GLAUCOMA,NEUROPATHY HAD TRIPLE CABG, with dementia Mother Family Medical History: Hyperlipidemia Additional Family Medical History / Comment(s): DDD, HAD 3 vessel CABG AGE 53. General Exam Limitations: no limitations General appearance: alert, in no apparent distress, other (This is a well- developed, well-nourished adult female patient in no acute distress. Vital signs upon presentation are temperature 98.5F, pulse 105, respirations 18, blood pressure 121/76, pulse ox 100% on room air.) Eye exam: Present: normal appearance, PERRL, EOMI. Absent: scleral icterus, conjunctival injection, periorbital swelling ENT exam: Present: normal exam, normal oropharynx, mucous membranes moist Respiratory exam: Present: normal lung sounds bilaterally. Absent: respiratory distress, wheezes, rales, rhonchi, stridor Cardiovascular Exam: Present: regular rate, normal rhythm, normal heart sounds. Absent: systolic murmur, diastolic murmur, rubs, gallop, clicks GI/Abdominal exam: Present: soft, normal bowel sounds. Absent: distended, tenderness, guarding, rebound, rigid Back exam: Present: normal inspection, CVA tenderness (L). Absent: CVA tenderness (R) Neurological exam: Present: alert, oriented X3, CN II-XII intact Psychiatric exam: Present: normal affect, normal mood Skin exam: Present: warm, dry, intact, normal color. Absent: rash Course Vital Signs 07/24/17 19:19 Temperature 98.5 F Pulse Rate 105 H Respiratory 18 Rate Blood Pressure 121/76 O2 Sat by Pulse 100 Oximetry Medical Decision Making - Medical Decision Making 42-year-old female patient presented to the emergency department today for complaints of left flank pain since Sunday. Patient does have an excessive history of kidney stones and chronic flank pain, states her symptoms feel similar to her usual pain. Labs were reviewed, kidney function is within normal limits. Urinalysis did show a large amount of blood. Patient does have Flomax, Percocet, and Mobic at home for pain control. She is instructed to take these as directed. She states instructed to follow-up with urology in the morning. She is instructed to return here immediately for any new, worsening, or concerning symptoms. She verbalizes understanding and agrees with this plan. - Lab Data Result diagrams: 07/24/17 21:29 07/24/17 21:29 Lab Results 07/24/17 07/24/17 07/24/17 Range/Units 21:29 21:29 21:29 WBC 10.0 (3.8-10.6) k/uL RBC 4.13 (3.80-5.40) m/uL Hgb 11.8 (11.4-16.0) gm/dL Hct 35.5 (34.0-46.0) % MCV 86.0 (80.0-100.0) fL MCH 28.5 (25.0-35.0) pg MCHC 33.1 (31.0-37.0) g/dL RDW 13.3 (11.5-15.5) % Plt Count 281 (150-450) k/uL Neutrophils % 47 % Lymphocytes % 43 % Monocytes % 5 % Eosinophils % 4 % Basophils % 1 % Neutrophils # 4.7 (1.3-7.7) k/uL Lymphocytes # 4.3 (1.0-4.8) k/uL Monocytes # 0.5 (0-1.0) k/uL Eosinophils # 0.4 (0-0.7) k/uL Basophils # 0.1 (0-0.2) k/uL Sodium 139 (137-145) mmol/L Potassium 3.9 (3.5-5.1) mmol/L Chloride 102 (98-107) mmol/L Carbon Dioxide 25 (22-30) mmol/L Anion Gap 12 mmol/L BUN 12 (7-17) mg/dL Creatinine 0.80 (0.52-1.04) mg/dL Est GFR (MDRD) Af Amer >60 (>60 ml/min/1.73 sqM) Est GFR (MDRD) Non-Af >60 (>60 ml/min/1.73 sqM) Glucose 122 H (74-99) mg/dL Calcium 9.5 (8.4-10.2) mg/dL Total Bilirubin 0.2 (0.2-1.3) mg/dL AST 18 (14-36) U/L ALT 26 (9-52) U/L Alkaline Phosphatase 80 (38-126) U/L Total Protein 6.8 (6.3-8.2) g/dL Albumin 4.2 (3.5-5.0) g/dL Amylase 63 (30-110) U/L Lipase 141 (23-300) U/L Urine Color Yellow Urine Appearance Cloudy H (Clear) Urine pH 5.5 (5.0-8.0) Ur Specific [place] 1.023 (1.001-1.035) Urine Protein Trace H (Negative) Urine Glucose (UA) Negative (Negative) Urine Ketones Negative (Negative) Urine Blood Large H (Negative) Urine Nitrite Negative (Negative) Urine Bilirubin Negative (Negative) Urine Urobilinogen 2.0 (<2.0) mg/dL Ur Leukocyte Esterase Small H (Negative) Urine RBC >182 H (0-5) /hpf Urine WBC 2 (0-5) /hpf Ur Squamous Epith Cells 12 H (0-4) /hpf Urine Mucus Occasional H (None) /hpf - Radiology Data Radiology results: report reviewed, image reviewed Two-view x-ray of the abdomen shows no sign of intestinal obstruction or pneumoperitoneum. Fecal pattern is normal. There are clips from cholecystectomy. There is no evidence of a mass. Lung bases are clear. Bony structures appear intact. Impression by Dr. Mack shows nonacute abdomen. No change. Disposition Clinical Impression: Flank pain Disposition: HOME SELF-CARE Condition: Good Instructions: Flank Pain (ED) Additional Instructions: Increase fluids. Take your Flomax as directed. Take your home pain medications as directed. Follow up with urology as soon as possible. Return here immediately for any new, worsening, or concerning symptoms. Referrals: Melchor Stevens MD [Primary Care Provider] - 1-2 days Luis Kincaid MD [STAFF PHYSICIAN] - 1-2 days Time of Disposition: 22:38
[2017-07-24 21:42] LABS: Basophils # (A) 0.1 k/uL (0-0.2); Basophils % (A) 1 %; Eosinophils # (A) 0.4 k/uL (0-0.7); Eosinophils % (A) 4 %; HCT 35.5 % (34.0-46.0); HGB 11.8 gm/dL (11.4-16.0); Lymphocytes # (A) 4.3 k/uL (1.0-4.8); Lymphocytes % (A) 43 %; MCH 28.5 pg (25.0-35.0); MCHC 33.1 g/dL (31.0-37.0); Mean Platelet Volume 7.2; Monocytes # (A) 0.5 k/uL (0-1.0); Monocytes % (A) 5 %; Neutrophils # (A) 4.7 k/uL (1.3-7.7); Neutrophils % (A) 47 %; Platelet Count 281 k/uL (150-450); RBC 4.13 m/uL (3.80-5.40); RDW 13.3 % (11.5-15.5)
[2017-07-24 21:49] LABS: Appearance,Urine Cloudy (Clear); Bilirubin,Urine Negative (Negative); Blood,Urine Large (Negative); Color,Urine Yellow; Glucose,Urine (UA) Negative (Negative); Ketones,Urine Negative (Negative); Leukocyte Esterase,Urine Small (Negative); Mucus,Urine Occasional /hpf; Nitrite,Urine Negative (Negative); PH, Urine 5.5 (5.0-8.0); Protein,Urine Trace (Negative); RBC,Urine >182 /hpf (0-5); Specific Gravity,Urine 1.023 (1.001-1.035); Squamous Epithelial Cell,Urine 12 /hpf (0-4); WBC,Urine 2 /hpf (0-5)
--- NOTE | 2017-07-24 21:52 | XR ---
EXAMINATION TYPE: XR KUB DATE OF EXAM: 07/24/2017 COMPARISON: 06/23/2017 HISTORY: Left flank pain TECHNIQUE: 2 views FINDINGS: There is no sign of intestinal obstruction or pneumoperitoneum. Fecal pattern is normal. Th ere are clips from cholecystectomy. There is no evidence of a mass. Lung bases are clear. Bony struct ures appear intact. IMPRESSION: Nonacute abdomen. No change.
[2017-07-24 21:58] LABS: ALT 26 U/L (9-52); AST 18 U/L (14-36); Albumin 4.2 g/dL (3.5-5.0); Alkaline Phosphatase 80 U/L (38-126); Amylase 63 U/L (30-110); Anion Gap 12 mmol/L; Blood Urea Nitrogen 12 mg/dL (7-17); Calcium 9.5 mg/dL (8.4-10.2); Carbon Dioxide 25 mmol/L (22-30); Chloride 102 mmol/L (98-107); Glucose 122 mg/dL (74-99); Lipase 141 U/L (23-300); Potassium 3.9 mmol/L (3.5-5.1); Sodium 139 mmol/L (137-145); Total Bilirubin 0.2 mg/dL (0.2-1.3); Total Protein 6.8 g/dL (6.3-8.2)
[2017-07-24] MEDS ORDERED: HYDROmorphone 2 MG/ML 1 ML SYRINGE IVP STA (22:38)
[2017-07-24 23:01] VITALS: BP 128/68; PULSE 86; RESP 16
== END 2017-07-24 23:03 | disposition home or self-care (01) ==
LOC: EC 18:52
DX: R10.9 Unspecified abdominal pain (principal); R11.2 Nausea with vomiting, unspecified; R31.9 Hematuria, unspecified; E11.9 Type 2 diabetes mellitus without complications; I10 Essential (primary) hypertension; F31.9 Bipolar disorder, unspecified; F17.200 Nicotine dependence, unspecified, uncomplicated; Z87.19 Personal history of other diseases of the digestive system; Z87.442 Personal history of urinary calculi; Z87.440 Personal history of urinary (tract) infections; Z90.49 Acquired absence of other specified parts of digestive tract; Z88.1 Allergy status to other antibiotic agents; Z91.041 Radiographic dye allergy status; Z88.0 Allergy status to penicillin; Z88.2 Allergy status to sulfonamides; Z88.8 Allergy status to other drugs, medicaments and biological substances; Z91.018 Allergy to other foods; Z79.4 Long term (current) use of insulin; Z79.899 Other long term (current) drug therapy
CPT/HCPCS: 36415; 80053; 82150; 83690; 85025; 81001; 74018; 99284; 96374; 96375 ×2; 96361; J1170; J2405; J1885

== ENCOUNTER 2017-07-25 14:05 | Emergency (ER) | payer OTHER ==
--- NOTE | 2017-07-25 14:32 | ED ---
General Adult HPI - General Source: patient, RN notes reviewed, old records reviewed Mode of arrival: ambulatory Limitations: no limitations <Carl Khan - Last Filed: 07/25/17 14:53> <Melchor Wall - Last Filed: 07/25/17 21:06> <Rafat Churchill - Last Filed: 07/25/17 21:34> - General Chief complaint: Psychiatric Symptoms Stated complaint: Mental Health/Suicidal Time Seen by Provider: 07/25/17 14:23 - History of Present Illness Initial comments: Patient's a 42-year-old female who presents emergency room today with a chief complaint of suicidal ideation. She states that she's been taking about taking some pills. Patient states she is been very upset today feeling agitated. She does admit that she's been seen for multiple here in the emergency room in the past. She states she has seen a therapist most a C1 tomorrow. He denies any thoughts of hurting amounts. She denies any other complaints currently. Patient denies any recent fever, chills, shortness of breath, chest pain, headaches or visual changes, or any other complaints. (Carl Khan) - Related Data Home Medications Medication Instructions Recorded Confirmed oxyCODONE HCL/ACETAMINOPHEN 1 tab PO TID PRN 04/08/16 07/25/17 [Percocet 10-325 mg] Lisinopril [Zestril] 10 mg PO HS 03/07/17 07/25/17 SUMAtriptan SUCCINATE [Imitrex] 100 mg PO DAILY PRN 04/25/17 07/25/17 FLUoxetine HCL [PROzac] 60 mg PO HS 07/24/17 07/25/17 Insulin Glargine,Hum.rec.anlog 5 unit SQ TID 07/24/17 07/25/17 [Basaglar Kwikpen U-100] LORazepam [Ativan] 1 mg PO QID PRN 07/24/17 07/25/17 OXcarbazepine [Trileptal] 300 mg PO BID 07/24/17 07/25/17 Pantoprazole [Protonix] 40 mg PO DAILY 07/24/17 07/25/17 Previous Rx's Medication Instructions Recorded Insulin Detemir [Levemir] 15 unit SQ HS #1 syr 06/13/17 metFORMIN HCL [Glucophage] 1,000 mg PO BID-W/MEALS tab 06/13/17 Loratadine [Claritin] 10 mg PO DAILY tab 07/03/17 Ziprasidone [Geodon] 40 mg PO PC-BRKFST #30 cap 07/03/17 Ziprasidone [Geodon] 80 mg PO HS #30 cap 07/03/17 hydrOXYzine PAMOATE [Vistaril] 25 mg PO BID PRN #60 cap 07/03/17 Allergies Allergy/AdvReac Type Severity Reaction Status Date / Time bupropion HCl Allergy Rash/Hives Verified 07/25/17 14:45 [From Wellbutrin] fentanyl Allergy Swelling Verified 07/25/17 14:45 Iodinated Contrast- Oral and Allergy Anaphylaxis Verified 07/25/17 14:45 IV Dye [Iodinated Contrast Media - IV Dye] orange juice [[place]] Allergy Rash/Hives Verified 07/25/17 14:45 Sulfa (Sulfonamide Allergy Rash/Hives Verified 07/25/17 14:45 Antibiotics) Penicillins AdvReac Nausea & Verified 07/25/17 14:45 Vomiting Review of Systems ROS Other: All systems not noted in ROS Statement are negative. <Carl Khan - Last Filed: 07/25/17 14:53> ROS Other: All systems not noted in ROS Statement are negative. <Melchor Wall - Last Filed: 07/25/17 21:06> ROS Other: All systems not noted in ROS Statement are negative. <Rafat Churchill - Last Filed: 07/25/17 21:34> ROS Statement: Those systems with pertinent positive or pertinent negative responses have been documented in the HPI. 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 Pt states that about 6 months ago she started with skin discoloration L ankle that has increased in size-she saw a overlay operator who prescibed antibiotic cream with no improvement-she also states the skin feels tight in that area and that her ankle now will occasionally "pop." History of Any Multi-Drug Resistant Organisms: None Reported Date of last positivie culture/infection: 05/14/17 MDRO Source:: ESBL URINE Past Surgical History: Bladder Surgery, Section, Cholecystectomy, Hysterectomy, Orthopedic Surgery, Tubal Ligation Additional Past Surgical History / Comment(s): R ovarian cystectomy, laparoscopic surgery for L ovary that had attached to the bowel, D&C, numerous lithotripsies, nephroscopies, cystoscopies and stents to ureters-none in place at this time, L robotic pyeloplasty with post op infection around kidney which then required a picc line/later removed (pt states was not MRSA), L rotator cuff repair, L wrist tendon surgery, lithotripsy Past Anesthesia/Blood Transfusion Reactions: Family History of Problems w/ Anesthesia Additional Past Anesthesia/Blood Transfusion Reaction / Comment(s): dad-hard time waking up due to enzyme problems in liver Past Psychological History: ADD/ADHD, Anxiety, Bipolar, Depression Smoking Status: Current every day smoker Past Alcohol Use History: None Reported Past Drug Use History: None Reported - Past Family History Brother(s) Family Medical History: Cancer Additional Family Medical History / Comment(s): testicular Father Family Medical History: Coronary Artery Disease (CAD), CVA/TIA, Diabetes Mellitus, Renal Disease Additional Family Medical History / Comment(s): GLAUCOMA,NEUROPATHY HAD TRIPLE CABG, with dementia Mother Family Medical History: Hyperlipidemia Additional Family Medical History / Comment(s): DDD, HAD 3 vessel CABG AGE 53. <Carl Khan - Last Filed: 07/25/17 14:53> General Exam Limitations: no limitations <Carl Khan - Last Filed: 07/25/17 14:53> <Melchor Wall - Last Filed: 07/25/17 21:06> <Rafat Churchill - Last Filed: 07/25/17 21:34> - General Exam Comments Initial Comments: General: The patient is awake and alert, in no distress, and does not appear acutely ill. Eye: Pupils are equal, round and reactive to light, extra-ocular movements are intact. No nystagmus. There is normal conjunctiva bilaterally. No signs of icterus. Ears, nose, mouth and throat: There are moist mucous membranes and no oral lesions. Neck: The neck is supple, there is no tenderness or JVD. Cardiovascular: There is a regular rate and rhythm. No murmur, rub or gallop is appreciated. Respiratory: Lungs are clear to auscultation, respirations are non-labored, breath sounds are equal. No wheezes, stridor, rales, or rhonchi. Musculoskeletal: Normal ROM, no tenderness. Strength 5/5. Sensation intact. Pulses equal bilaterally 2+. Neurological: A&O x 3. CN II-XII intact, There are no obvious motor or sensory deficits. Coordination appears grossly intact. Speech is normal. Skin: Skin is warm and dry and no rashes or lesions are noted. Psychiatric: Cooperative. Anxious. (Carl Khan) Vital Signs 07/25/17 07/25/17 07/25/17 14:13 18:00 21:00 Temperature 97.8 F 98.9 F 98.3 F Pulse Rate 100 89 92 Respiratory 20 16 20 Rate Blood Pressure 160/85 135/68 141/56 O2 Sat by Pulse 100 99 99 Oximetry Procedures - Restraint - Face to Face Restraint Occurrence 1 Patient's Immediate Situation: Endangers self safety, Endangers staff safety Patient's Reaction to the Intervention: Appropriate, Angry Patient's Medical & Behavioral Condition: Awake, Alert Need to Continue or Terminate Restraint or Seclusion: Continue Face to Face Eval of Restraint Date: 07/25/17 Face to Face Eval of Restraint Time: 14:55 <Carl Khan - Last Filed: 07/25/17 14:53> Medical Decision Making <Carl Khan - Last Filed: 07/25/17 14:53> <Melchor Wall - Last Filed: 07/25/17 21:06> <Rafat Churchill - Last Filed: 07/25/17 21:34> - Medical Decision Making Patient resting, no respiratory difficulty. Awake now and talking to the psychiatric nurse. Dr. Wall Final disposition will be determined by Dr. Churchill (Melchor Wall) - Lab Data Lab Results 07/25/17 07/25/17 Range/Units 19:48 21:04 POC Glucose (mg/dL) 116 H (75-99) mg/dL POC Glu Correspondence Transcriber ID Suzie Smith Urine Opiates Screen Not Detected (NotDetected) Ur Oxycodone Screen Not Detected (NotDetected) Urine Methadone Screen Not Detected (NotDetected) Ur Propoxyphene Screen Not Detected (NotDetected) Ur Barbiturates Screen Not Detected (NotDetected) U Tricyclic Antidepress Not Detected (NotDetected) Ur Phencyclidine Scrn Not Detected (NotDetected) Ur Amphetamines Screen Not Detected (NotDetected) U Methamphetamines Scrn Not Detected (NotDetected) U Benzodiazepines Scrn Detected H (NotDetected) Urine Cocaine Screen Not Detected (NotDetected) U Marijuana (THC) Screen Not Detected (NotDetected) Disposition <Carl Khan - Last Filed: 07/25/17 14:53> <Melchor Wall - Last Filed: 07/25/17 21:06> <Rafat Churchill - Last Filed: 07/25/17 21:34> Clinical Impression: Mood disorder Disposition: HOME SELF-CARE Condition: Good Instructions: Mood Disorders (ED), Suicide Prevention for Adults (ED) Referrals: Melchor Stevens MD [Primary Care Provider] - 1-2 days
[2017-07-25] MEDS ORDERED: LORazepam 2 MG/ML INJ IM STA (14:50)
[2017-07-25] MEDS ORDERED: ZIPRASIDONE 20 MG VIAL IM STA (14:50)
[2017-07-25 20:19] LABS: Amphetamine Screen,Urine Not Detected (NotDetected); Barbiturate Screen,Urine Not Detected (NotDetected); Benzodiazepines Screen,Urine Detected (NotDetected); Cocaine Screen,Urine Not Detected (NotDetected); Methadone Screen, Urine Not Detected (NotDetected); Opiate Screen,Urine Not Detected (NotDetected); Oxycodone Screen, Urine Not Detected (NotDetected); Phencyclidine Screen,Urine Not Detected (NotDetected); Tricyclic Antidepressant,Urine Not Detected (NotDetected); Urn Cannabinoid Scrn Not Detected (NotDetected)
[2017-07-25 21:06] LABS: Glucose,Whole Blood 116 mg/dL (75-99)
[2017-07-25 21:48] VITALS: BP 118/63; PULSE 81; RESP 18
[2017-07-25 22:12] VITALS: TEMP 98.1
== END 2017-07-25 22:05 | disposition home or self-care (01) ==
LOC: EC 14:05
DX: F39 Unspecified mood [affective] disorder (principal); F41.9 Anxiety disorder, unspecified; R45.851 Suicidal ideations; I10 Essential (primary) hypertension; E11.9 Type 2 diabetes mellitus without complications; F32.9 Major depressive disorder, single episode, unspecified; F17.200 Nicotine dependence, unspecified, uncomplicated; Z79.4 Long term (current) use of insulin; Z79.899 Other long term (current) drug therapy; Z88.0 Allergy status to penicillin; Z88.2 Allergy status to sulfonamides; Z88.5 Allergy status to narcotic agent; Z88.8 Allergy status to other drugs, medicaments and biological substances; Z91.018 Allergy to other foods; Z91.041 Radiographic dye allergy status; Z87.19 Personal history of other diseases of the digestive system; Z81.8 Family history of other mental and behavioral disorders
CPT/HCPCS: 82075; 36415; 80306; 99285; 96372 ×2; J2060; J3486

== ENCOUNTER 2017-08-19 16:27 | Emergency (ER) | payer OTHER ==
[2017-08-19 16:37] VITALS: RESP 18; TEMP 98
[2017-08-19 16:54] LABS: Appearance,Urine Cloudy (Clear); Bacteria,Urine Few /hpf; Bilirubin,Urine Negative (Negative); Blood,Urine Large (Negative); Color,Urine Light Red; Glucose,Urine (UA) Negative (Negative); Ketones,Urine Trace (Negative); Leukocyte Esterase,Urine Trace (Negative); Mucus,Urine Many /hpf; Nitrite,Urine Negative (Negative); PH, Urine 5.5 (5.0-8.0); Protein,Urine 1+ (Negative); RBC,Urine >182 /hpf (0-5); Specific Gravity,Urine 1.022 (1.001-1.035); Squamous Epithelial Cell,Urine 3 /hpf (0-4); Urobilinogen,Urine <2.0 mg/dL (<2.0); WBC,Urine 18 /hpf (0-5)
[2017-08-19] MEDS ORDERED: HYDROmorphone 0.5 MG/0.5 ML SYRINGE IVP STA (17:19)
[2017-08-19] MEDS ORDERED: ONDANSETRON 4 MG/2 ML VIAL IVP STA (17:19)
[2017-08-19] MEDS ORDERED: SODIUM CHLORIDE 0.9% 1,000 ML IV STA (17:19)
--- NOTE | 2017-08-19 17:36 | ED ---
Abdominal Pain HPI - General Chief Complaint: Abdominal Pain Stated Complaint: ABd Pain-poss kidney stone Time Seen by Provider: 08/19/17 17:11 Source: patient, RN notes reviewed Mode of arrival: ambulatory - History of Present Illness Initial Comments: This is a 42-year-old female with history of frequent kidney stones who presents to the emergency department with chief complaint of left flank pain. Patient states that on Sunday evening she noticed blood in her urine. She states that she has been having left flank pain that wraps around to her left side. She describes the pain as dull and intense that is constant with intermittent sharp pain. She denies any fevers or chills. She states that she has also been feeling nauseous and has had multiple episodes of vomiting. Her last episode was 2 hours ago. Patient states that she called Dr. Ortega and was prescribed Toradol. She says that she has been rotating Toradol and Percocet. Her last dose of Toradol was 1 hour ago. Patient states she also has a history of hydronephrosis in the left kidney. Denies chest pain, shortness of breath, dysuria, diarrhea or constipation, headache or dizziness. - Related Data Home Medications Medication Instructions Recorded Confirmed Insulin Glargine,Hum.rec.anlog 15 unit SQ HS 07/24/17 08/19/17 [Basaglar Kwikpen U-100] Pantoprazole [Protonix] 40 mg PO DAILY 07/24/17 08/19/17 Insulin Glulisine [Apidra] 5 unit SQ AC-TID 07/29/17 08/19/17 LORazepam [Ativan] 1 mg PO BID 08/19/17 08/19/17 Loratadine [Claritin] 10 mg PO HS 08/19/17 08/19/17 OLANZapine [ZyPREXA] 10 mg PO BID@0900,2200 08/19/17 08/19/17 Previous Rx's Medication Instructions Recorded FLUoxetine HCL [PROzac] 40 mg PO DAILY #60 cap 08/02/17 Imipramine [Tofranil] 25 mg PO HS #30 tab 08/02/17 Lisinopril [Zestril] 10 mg PO HS tab 08/02/17 OXcarbazepine [Trileptal] 300 mg PO BID #60 tab 08/02/17 SUMAtriptan SUCCINATE [Imitrex] 100 mg PO DAILY PRN tab 08/02/17 metFORMIN HCL [Glucophage] 1,000 mg PO BID-W/MEALS tab 08/02/17 traZODone HCL [Desyrel] 50 mg PO HS #30 tab 08/02/17 Allergies Allergy/AdvReac Type Severity Reaction Status Date / Time bupropion HCl Allergy Rash/Hives Verified 08/19/17 17:23 [From Wellbutrin] fentanyl Allergy Swelling Verified 08/19/17 17:23 Iodinated Contrast- Oral and Allergy Anaphylaxis Verified 08/19/17 17:23 IV Dye [Iodinated Contrast Media - IV Dye] orange juice [[place]] Allergy Rash/Hives Verified 08/19/17 17:23 Sulfa (Sulfonamide Allergy Rash/Hives Verified 08/19/17 17:23 Antibiotics) Penicillins AdvReac Nausea & Verified 08/19/17 17:23 Vomiting Review of Systems ROS Statement: Those systems with pertinent positive or pertinent negative responses have been documented in the HPI. ROS Other: All systems not noted in ROS Statement are negative. 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 Pt states that about 6 months ago she started with skin discoloration L ankle that has increased in size-she saw a radiation / chemistry technician who prescibed antibiotic cream with no improvement-she also states the skin feels tight in that area and that her ankle now will occasionally "pop." History of Any Multi-Drug Resistant Organisms: None Reported Date of last positivie culture/infection: 05/14/17 MDRO Source:: ESBL URINE Past Surgical History: Bladder Surgery, Section, Cholecystectomy, Hysterectomy, Orthopedic Surgery, Tubal Ligation Additional Past Surgical History / Comment(s): R ovarian cystectomy, laparoscopic surgery for L ovary that had attached to the bowel, D&C, numerous lithotripsies, nephroscopies, cystoscopies and stents to ureters-none in place at this time, L robotic pyeloplasty with post op infection around kidney which then required a picc line/later removed (pt states was not MRSA), L rotator cuff repair, L wrist tendon surgery, lithotripsy Past Anesthesia/Blood Transfusion Reactions: Family History of Problems w/ Anesthesia Additional Past Anesthesia/Blood Transfusion Reaction / Comment(s): dad-hard time waking up due to enzyme problems in liver Past Psychological History: ADD/ADHD, Anxiety, Bipolar, Depression Smoking Status: Current every day smoker Past Alcohol Use History: None Reported Past Drug Use History: None Reported - Past Family History Brother(s) Family Medical History: Cancer Additional Family Medical History / Comment(s): testicular Father Family Medical History: Coronary Artery Disease (CAD), CVA/TIA, Diabetes Mellitus, Renal Disease Additional Family Medical History / Comment(s): GLAUCOMA,NEUROPATHY HAD TRIPLE CABG, with dementia Mother Family Medical History: Hyperlipidemia Additional Family Medical History / Comment(s): DDD, HAD 3 vessel CABG AGE 53. General Exam - General Exam Comments Initial Comments: General: Awake and alert, well-developed; in no apparent distress. Curled up on ED stretcher with a basin. HEENT: Head atraumatic, normocephalic. Pupils are equal, round and reactive to light. Extraocular movements intact. Oropharynx moist without erythema or exudate. Neck: Supple. Normal ROM. Cardiovascular: Regular rate and rhythm. No murmurs, rubs or gallops. Chest symmetrical. Respiratory: Lungs clear to auscultation bilaterally. No wheezes, rales or rhonchi. Normal respiratory effort with no use of accessory muscles. Abdomen: Soft, non-tender, non-distended. No rigidity, rebound or guarding. Normal bowel sounds in all 4 quadrants. Left-sided CVA tenderness. Musculoskeletal: Normal ROM, no tenderness bilateral upper and lower extremities. Ambulating normally. Skin: [place], warm and dry without rashes or lesions. Neurological: Alert and oriented x3. CN II-XII grossly intact. Speech is fluent and answers are appropriate. No focal neuro deficits. Psychiatric: Normal mood and affect. No overt signs of depression or anxiety noted. Course Vital Signs 08/19/17 16:35 Temperature 98.0 F Pulse Rate 101 H Respiratory 18 Rate Blood Pressure 128/74 O2 Sat by Pulse 97 Oximetry Medical Decision Making - Medical Decision Making This is a 42-year-old female presents to the emergency department with chief complaint of gross hematuria and left-sided flank pain. CBC, CMP were within normal limits. Patient did have a slightly elevated lipase at 374, however elevations in her lipase are noted in the past. UA did reveal large blood and red blood cells as well as white blood cells, trace leukocyte esterase and a few bacteria. Ultrasound of kidneys and bladder showed no evidence for nephrolithiasis or marian hydronephrosis. Patient was given antiemetics and pain medication while in the emergency department. She states that her symptoms have markedly improved. She'll be discharged home. She is to follow- up with Dr. Ortega. She is in agreement and voices understanding. All questions were answered. - Lab Data Result diagrams: 08/19/17 17:34 08/19/17 17:34 Lab Results 08/19/17 08/19/17 08/19/17 Range/Units 16:37 17:34 17:34 WBC 9.7 (3.8-10.6) k/uL RBC 4.44 (3.80-5.40) m/uL Hgb 12.1 (11.4-16.0) gm/dL Hct 37.0 (34.0-46.0) % MCV 83.3 (80.0-100.0) fL MCH 27.2 (25.0-35.0) pg MCHC 32.7 (31.0-37.0) g/dL RDW 13.3 (11.5-15.5) % Plt Count 285 (150-450) k/uL Neutrophils % 66 % Lymphocytes % 24 % Monocytes % 5 % Eosinophils % 3 % Basophils % 1 % Neutrophils # 6.4 (1.3-7.7) k/uL Lymphocytes # 2.3 (1.0-4.8) k/uL Monocytes # 0.5 (0-1.0) k/uL Eosinophils # 0.3 (0-0.7) k/uL Basophils # 0.1 (0-0.2) k/uL Sodium 139 (137-145) mmol/L Potassium 4.3 (3.5-5.1) mmol/L Chloride 105 (98-107) mmol/L Carbon Dioxide 22 (22-30) mmol/L Anion Gap 12 mmol/L BUN 14 (7-17) mg/dL Creatinine 0.61 (0.52-1.04) mg/dL Est GFR (MDRD) Af Amer >60 (>60 ml/min/1.73 sqM) Est GFR (MDRD) Non-Af >60 (>60 ml/min/1.73 sqM) Glucose 139 H (74-99) mg/dL Calcium 9.9 (8.4-10.2) mg/dL Total Bilirubin 0.2 (0.2-1.3) mg/dL AST 18 (14-36) U/L ALT 31 (9-52) U/L Alkaline Phosphatase 89 (38-126) U/L Total Protein 7.0 (6.3-8.2) g/dL Albumin 4.2 (3.5-5.0) g/dL Amylase 55 (30-110) U/L Lipase 374 H (23-300) U/L Urine Color Light Red Urine Appearance Cloudy H (Clear) Urine pH 5.5 (5.0-8.0) Ur Specific [place] 1.022 (1.001-1.035) Urine Protein 1+ H (Negative) Urine Glucose (UA) Negative (Negative) Urine Ketones Trace H (Negative) Urine Blood Large H (Negative) Urine Nitrite Negative (Negative) Urine Bilirubin Negative (Negative) Urine Urobilinogen <2.0 (<2.0) mg/dL Ur Leukocyte Esterase Trace H (Negative) Urine RBC >182 H (0-5) /hpf Urine WBC 18 H (0-5) /hpf Ur Squamous Epith Cells 3 (0-4) /hpf Urine Bacteria Few H (None) /hpf Urine Mucus Many H (None) /hpf - Radiology Data Radiology results: report reviewed Ultrasound kidneys and bladder impression: Mild pelvocaliectasis on the left without marian hydronephrosis. Bilateral ureteral jets were identified. No nephrolithiasis. Disposition Clinical Impression: Flank pain, Hematuria Disposition: HOME SELF-CARE Condition: Good Instructions: Flank Pain (ED), Hematuria (ED) Additional Instructions: Please follow up with primary care provider within 1-2 days. Return to emergency department if symptoms should worsen or any concerns arise. Referrals: Melchor Stevens MD [Primary Care Provider] - 1-2 days Time of Disposition: 19:35
[2017-08-19 17:44] LABS: Basophils # (A) 0.1 k/uL (0-0.2); Basophils % (A) 1 %; Eosinophils # (A) 0.3 k/uL (0-0.7); Eosinophils % (A) 3 %; HGB 12.1 gm/dL (11.4-16.0); Lymphocytes # (A) 2.3 k/uL (1.0-4.8); Lymphocytes % (A) 24 %; MCH 27.2 pg (25.0-35.0); MCHC 32.7 g/dL (31.0-37.0); MCV 83.3 fL (80.0-100.0); Mean Platelet Volume 6.9; Monocytes # (A) 0.5 k/uL (0-1.0); Monocytes % (A) 5 %; Neutrophils # (A) 6.4 k/uL (1.3-7.7); Neutrophils % (A) 66 %; Platelet Count 285 k/uL (150-450); RBC 4.44 m/uL (3.80-5.40); RDW 13.3 % (11.5-15.5); WBC 9.7 k/uL (3.8-10.6)
[2017-08-19 17:54] LABS: ALT 31 U/L (9-52); AST 18 U/L (14-36); Albumin 4.2 g/dL (3.5-5.0); Alkaline Phosphatase 89 U/L (38-126); Amylase 55 U/L (30-110); Anion Gap 12 mmol/L; Blood Urea Nitrogen 14 mg/dL (7-17); Calcium 9.9 mg/dL (8.4-10.2); Carbon Dioxide 22 mmol/L (22-30); Chloride 105 mmol/L (98-107); Glucose 139 mg/dL (74-99); Lipase 374 U/L (23-300); Potassium 4.3 mmol/L (3.5-5.1); Sodium 139 mmol/L (137-145); Total Bilirubin 0.2 mg/dL (0.2-1.3)
--- NOTE | 2017-08-19 19:11 | US ---
EXAMINATION TYPE: US kidneys/renal and bladder DATE OF EXAM: 08/19/2017 COMPARISON: NONE CLINICAL HISTORY: Pain in left flank since Sunday08/17/17. hx nephrolithaisis and removal of part of the left ureter. EXAM MEASUREMENTS: Right Kidney: 10.6 x 3.8 x 4.4 cm Left Kidney: 11.4 x 4.5 x 5.0 cm Limited due to bowel gas and decompressed bladder. Right Kidney: Appears wnl Left Kidney: Slight caliectasis and pelvic prominence noted; otherwise appears wnl Bladder: Decompressed; parts visualized appear wnl Bilateral Jets seen: Yes There is evidence of slight left kidney hydronephrosis. No nephrolithiasis is distinctly seen at thi s time. No masses are identified. The urinary bladder is anechoic and decompressed. Bilateral uret eral jets are seen. IMPRESSION: Mild pelvocaliectasis on the left without marian hydronephrosis. Bilateral ureteral jets were identifi ed. No nephrolithiasis.
[2017-08-19] MEDS ORDERED: KETOROLAC 30 MG/ML 1 ML VIAL IVP STA (19:13)
[2017-08-19 19:56] VITALS: BP 98/62; PULSE 90
== END 2017-08-19 19:55 | disposition home or self-care (01) ==
LOC: EC 16:27
DX: R10.9 Unspecified abdominal pain (principal); R31.9 Hematuria, unspecified; R74.8 Abnormal levels of other serum enzymes; E11.9 Type 2 diabetes mellitus without complications; F90.9 Attention-deficit hyperactivity disorder, unspecified type; F31.9 Bipolar disorder, unspecified; F41.9 Anxiety disorder, unspecified; F17.200 Nicotine dependence, unspecified, uncomplicated; Z79.4 Long term (current) use of insulin; Z79.899 Other long term (current) drug therapy; Z88.0 Allergy status to penicillin; Z88.2 Allergy status to sulfonamides; Z91.041 Radiographic dye allergy status; Z91.018 Allergy to other foods; Z88.8 Allergy status to other drugs, medicaments and biological substances; Z88.5 Allergy status to narcotic agent; Z90.49 Acquired absence of other specified parts of digestive tract
CPT/HCPCS: 36415; 80053; 82150; 83690; 85025; 81001; 76770; 99284; 96374; 96375 ×2; 96361 ×2; J2405; J1885; J1170

== ENCOUNTER 2017-08-23 23:35 | Emergency (ER) | payer OTHER ==
[2017-08-23 23:41] VITALS: TEMP 96.7
[2017-08-23] MEDS ORDERED: diphenhydrAMINE 50 MG/ML 1 ML VIAL IVP STA (23:53)
[2017-08-23] MEDS ORDERED: SODIUM CHLORIDE 0.9% 1,000 ML IV ONE (23:53)
[2017-08-23] MEDS ORDERED: METOCLOPRAMIDE 5 MG/ML 2 ML VIAL IVP STA (23:53)
[2017-08-23] MEDS ORDERED: KETOROLAC 30 MG/ML 1 ML VIAL IVP STA (23:53)
[2017-08-23] MEDS ORDERED: MORPHINE SULFATE 4 MG/ML SYRINGE IVP STA (23:53)
[2017-08-24 00:11] LABS: Basophils # (A) 0.1 k/uL (0-0.2); Basophils % (A) 1 %; Eosinophils # (A) 0.4 k/uL (0-0.7); Eosinophils % (A) 3 %; HCT 35.6 % (34.0-46.0); HGB 12.2 gm/dL (11.4-16.0); Lymphocytes # (A) 4.8 k/uL (1.0-4.8); Lymphocytes % (A) 39 %; MCH 28.1 pg (25.0-35.0); MCHC 34.3 g/dL (31.0-37.0); MCV 81.8 fL (80.0-100.0); Mean Platelet Volume 7.2; Monocytes # (A) 0.6 k/uL (0-1.0); Monocytes % (A) 5 %; Neutrophils # (A) 6.3 k/uL (1.3-7.7); Neutrophils % (A) 51 %; Platelet Count 345 k/uL (150-450); RBC 4.36 m/uL (3.80-5.40); RDW 13.7 % (11.5-15.5); WBC 12.4 k/uL (3.8-10.6)
[2017-08-24 00:23] LABS: ALT 29 U/L (9-52); AST 19 U/L (14-36); Albumin 4.2 g/dL (3.5-5.0); Alkaline Phosphatase 93 U/L (38-126); Anion Gap 14 mmol/L; Blood Urea Nitrogen 16 mg/dL (7-17); Calcium 9.8 mg/dL (8.4-10.2); Carbon Dioxide 20 mmol/L (22-30); Chloride 105 mmol/L (98-107); Glucose 184 mg/dL (74-99); Potassium 4.1 mmol/L (3.5-5.1); Sodium 139 mmol/L (137-145); Total Bilirubin 0.3 mg/dL (0.2-1.3); Total Protein 7.2 g/dL (6.3-8.2)
[2017-08-24 00:27] LABS: Appearance,Urine Cloudy (Clear); Bilirubin,Urine Negative (Negative); Blood,Urine Large (Negative); Color,Urine Light Red; Glucose,Urine (UA) Negative (Negative); Ketones,Urine Negative (Negative); Leukocyte Esterase,Urine Trace (Negative); Protein,Urine Trace (Negative); RBC,Urine >182 /hpf (0-5); Squamous Epithelial Cell,Urine 2 /hpf (0-4); Urobilinogen,Urine <2.0 mg/dL (<2.0); WBC,Urine >182 /hpf (0-5)
--- NOTE | 2017-08-24 00:29 | ED ---
Abdominal Pain HPI - General Chief Complaint: Abdominal Pain Stated Complaint: kidney stone Time Seen by Provider: 08/23/17 23:42 Source: patient Mode of arrival: ambulatory Limitations: no limitations - History of Present Illness Initial Comments: 42-year-old female patient presents to the emergency department today for complaints of left flank pain and hematuria. Patient has a past medical history significant for frequent kidney stones and chronic flank pain. She states that she has had the pain in the left flank for the last week. States that she has been taking her home mobic and Percocet without relief of symptoms. She is also reporting vomiting due to the pain. States that she does have an appointment with her urologist on Sunday however she could not control her symptoms tonight so she presented for evaluation. Patient denies any recent rash, fever, chills, shortness breath, chest pain, diarrhea, constipation, back pain, numbness, tingling, dizziness, weakness, dysuria, urinary urgency, urinary frequency, headache, visual changes, or any other complaints. - Related Data Home Medications Medication Instructions Recorded Confirmed Insulin Glargine,Hum.rec.anlog 15 unit SQ HS 07/24/17 08/19/17 [Basaglar Kwikpen U-100] Pantoprazole [Protonix] 40 mg PO DAILY 07/24/17 08/19/17 Insulin Glulisine [Apidra] 5 unit SQ AC-TID 07/29/17 08/19/17 LORazepam [Ativan] 1 mg PO BID 08/19/17 08/19/17 Loratadine [Claritin] 10 mg PO HS 08/19/17 08/19/17 OLANZapine [ZyPREXA] 10 mg PO BID@0900,2200 08/19/17 08/19/17 Previous Rx's Medication Instructions Recorded FLUoxetine HCL [PROzac] 40 mg PO DAILY #60 cap 08/02/17 Imipramine [Tofranil] 25 mg PO HS #30 tab 08/02/17 Lisinopril [Zestril] 10 mg PO HS tab 08/02/17 OXcarbazepine [Trileptal] 300 mg PO BID #60 tab 08/02/17 SUMAtriptan SUCCINATE [Imitrex] 100 mg PO DAILY PRN tab 08/02/17 metFORMIN HCL [Glucophage] 1,000 mg PO BID-W/MEALS tab 08/02/17 traZODone HCL [Desyrel] 50 mg PO HS #30 tab 08/02/17 Allergies Allergy/AdvReac Type Severity Reaction Status Date / Time bupropion HCl Allergy Rash/Hives Verified 08/23/17 23:40 [From Wellbutrin] fentanyl Allergy Swelling Verified 08/23/17 23:40 Iodinated Contrast- Oral and Allergy Anaphylaxis Verified 08/23/17 23:40 IV Dye [Iodinated Contrast Media - IV Dye] orange juice [[place]] Allergy Rash/Hives Verified 08/23/17 23:40 Sulfa (Sulfonamide Allergy Rash/Hives Verified 08/23/17 23:40 Antibiotics) Penicillins AdvReac Nausea & Verified 08/23/17 23:40 Vomiting Review of Systems ROS Statement: Those systems with pertinent positive or pertinent negative responses have been documented in the HPI. ROS Other: All systems not noted in ROS Statement are negative. 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 Pt states that about 6 months ago she started with skin discoloration L ankle that has increased in size-she saw a director government who prescibed antibiotic cream with no improvement-she also states the skin feels tight in that area and that her ankle now will occasionally "pop." History of Any Multi-Drug Resistant Organisms: None Reported Date of last positivie culture/infection: 05/14/17 MDRO Source:: ESBL URINE Past Surgical History: Bladder Surgery, Section, Cholecystectomy, Hysterectomy, Orthopedic Surgery, Tubal Ligation Additional Past Surgical History / Comment(s): R ovarian cystectomy, laparoscopic surgery for L ovary that had attached to the bowel, D&C, numerous lithotripsies, nephroscopies, cystoscopies and stents to ureters-none in place at this time, L robotic pyeloplasty with post op infection around kidney which then required a picc line/later removed (pt states was not MRSA), L rotator cuff repair, L wrist tendon surgery, lithotripsy Past Anesthesia/Blood Transfusion Reactions: Family History of Problems w/ Anesthesia Additional Past Anesthesia/Blood Transfusion Reaction / Comment(s): dad-hard time waking up due to enzyme problems in liver Past Psychological History: ADD/ADHD, Anxiety, Bipolar, Depression Smoking Status: Current every day smoker Past Alcohol Use History: None Reported Past Drug Use History: None Reported - Past Family History Brother(s) Family Medical History: Cancer Additional Family Medical History / Comment(s): testicular Father Family Medical History: Coronary Artery Disease (CAD), CVA/TIA, Diabetes Mellitus, Renal Disease Additional Family Medical History / Comment(s): GLAUCOMA,NEUROPATHY HAD TRIPLE CABG, with dementia Mother Family Medical History: Hyperlipidemia Additional Family Medical History / Comment(s): DDD, HAD 3 vessel CABG AGE 53. General Exam Limitations: no limitations General appearance: alert, in no apparent distress, other (This is a well- developed, well-nourished adult female patient in no acute distress. Vital signs upon presentation are temperature 96.7F, pulse 109, respirations 22, blood pressure 138/91, pulse ox 99% on room air.) Eye exam: Present: normal appearance, PERRL, EOMI. Absent: scleral icterus, conjunctival injection, periorbital swelling ENT exam: Present: normal exam, normal oropharynx, mucous membranes moist Respiratory exam: Present: normal lung sounds bilaterally. Absent: respiratory distress, wheezes, rales, rhonchi, stridor Cardiovascular Exam: Present: regular rate, normal rhythm, normal heart sounds. Absent: systolic murmur, diastolic murmur, rubs, gallop, clicks GI/Abdominal exam: Present: soft, normal bowel sounds. Absent: distended, tenderness, guarding, rebound, rigid Back exam: Present: normal inspection, CVA tenderness (L). Absent: CVA tenderness (R) Neurological exam: Present: alert, oriented X3, CN II-XII intact Psychiatric exam: Present: normal affect, normal mood Skin exam: Present: warm, dry, intact, normal color. Absent: rash Course Vital Signs 08/23/17 23:38 Temperature 96.7 F L Pulse Rate 109 H Respiratory 22 Rate Blood Pressure 138/91 O2 Sat by Pulse 99 Oximetry Medical Decision Making - Medical Decision Making 42-year-old female patient presented to the emergency department today for evaluation of left flank pain and hematuria. Physical examination reveals some left CVA tenderness. Urinalysis did show a large amount of blood, large amount of white blood cells. Labs are reviewed and are unremarkable, patient's kidney function is within normal limits. Patient does have an appointment with her urologist on Sunday for further evaluation of kidney stones. She'll be instructed to continue taking her home pain medications. We will ensure she is taking Flomax. She is instructed to return here immediately for any new, worsening, or current she verbalizes understanding and agrees with this plan. - Lab Data Result diagrams: 08/24/17 00:04 08/24/17 00:04 Lab Results 08/24/17 08/24/17 08/24/17 Range/Units 00:04 00:04 00:04 WBC 12.4 H (3.8-10.6) k/uL RBC 4.36 (3.80-5.40) m/uL Hgb 12.2 (11.4-16.0) gm/dL Hct 35.6 (34.0-46.0) % MCV 81.8 (80.0-100.0) fL MCH 28.1 (25.0-35.0) pg MCHC 34.3 (31.0-37.0) g/dL RDW 13.7 (11.5-15.5) % Plt Count 345 (150-450) k/uL Neutrophils % 51 % Lymphocytes % 39 % Monocytes % 5 % Eosinophils % 3 % Basophils % 1 % Neutrophils # 6.3 (1.3-7.7) k/uL Lymphocytes # 4.8 (1.0-4.8) k/uL Monocytes # 0.6 (0-1.0) k/uL Eosinophils # 0.4 (0-0.7) k/uL Basophils # 0.1 (0-0.2) k/uL Sodium 139 (137-145) mmol/L Potassium 4.1 (3.5-5.1) mmol/L Chloride 105 (98-107) mmol/L Carbon Dioxide 20 L (22-30) mmol/L Anion Gap 14 mmol/L BUN 16 (7-17) mg/dL Creatinine 0.70 (0.52-1.04) mg/dL Est GFR (MDRD) Af Amer >60 (>60 ml/min/1.73 sqM) Est GFR (MDRD) Non-Af >60 (>60 ml/min/1.73 sqM) Glucose 184 H (74-99) mg/dL Calcium 9.8 (8.4-10.2) mg/dL Total Bilirubin 0.3 (0.2-1.3) mg/dL AST 19 (14-36) U/L ALT 29 (9-52) U/L Alkaline Phosphatase 93 (38-126) U/L Total Protein 7.2 (6.3-8.2) g/dL Albumin 4.2 (3.5-5.0) g/dL Urine Color Light Red Urine Appearance Cloudy H (Clear) Urine pH 5.0 (5.0-8.0) Ur Specific [place] 1.010 (1.001-1.035) Urine Protein Trace H (Negative) Urine Glucose (UA) Negative (Negative) Urine Ketones Negative (Negative) Urine Blood Large H (Negative) Urine Nitrite Negative (Negative) Urine Bilirubin Negative (Negative) Urine Urobilinogen <2.0 (<2.0) mg/dL Ur Leukocyte Esterase Trace H (Negative) Urine RBC >182 H (0-5) /hpf Urine WBC >182 H (0-5) /hpf Ur Squamous Epith Cells 2 (0-4) /hpf Disposition Clinical Impression: Flank pain, Hematuria Disposition: HOME SELF-CARE Condition: Good Instructions: Kidney Stones (ED), Flank Pain (ED) Additional Instructions: Take home pain medications as directed. Increase fluids. Follow-up with your urologist as you have planned on Sunday. Return here immediately for any new, worsening, or concerning symptoms. Referrals: Melchor Stevens MD [Primary Care Provider] - 1-2 days Time of Disposition: 00:34
[2017-08-24] MEDS ORDERED: MORPHINE SULFATE 4 MG/ML SYRINGE IVP STA (00:40)
[2017-08-24 00:46] VITALS: BP 108/59; PULSE 83; RESP 16
== END 2017-08-24 00:52 | disposition home or self-care (01) ==
LOC: EC 23:35
DX: R10.9 Unspecified abdominal pain (principal); R31.9 Hematuria, unspecified; R11.10 Vomiting, unspecified; E11.9 Type 2 diabetes mellitus without complications; F31.9 Bipolar disorder, unspecified; F90.9 Attention-deficit hyperactivity disorder, unspecified type; F17.200 Nicotine dependence, unspecified, uncomplicated; Z79.4 Long term (current) use of insulin; Z79.899 Other long term (current) drug therapy; Z88.0 Allergy status to penicillin; Z88.2 Allergy status to sulfonamides; Z91.041 Radiographic dye allergy status; Z91.018 Allergy to other foods; Z88.8 Allergy status to other drugs, medicaments and biological substances; Z90.49 Acquired absence of other specified parts of digestive tract; Z90.710 Acquired absence of both cervix and uterus
CPT/HCPCS: 36415; 80053; 85025; 81001; 99284; 96374; 96375 ×3; 96376; 96361; J2270; J1200; J2765; J1885

== ENCOUNTER 2017-08-29 22:11 | Emergency (ER) | payer OTHER ==
[2017-08-29 22:20] VITALS: RESP 18
[2017-08-29] MEDS ORDERED: SODIUM CHLORIDE 0.9% 500 ML IV ONE (22:35)
[2017-08-29] MEDS ORDERED: KETOROLAC 30 MG/ML 1 ML VIAL IVP STA (22:35)
[2017-08-29] MEDS ORDERED: METOCLOPRAMIDE 5 MG/ML 2 ML VIAL IVP STA (22:35)
[2017-08-29] MEDS ORDERED: diphenhydrAMINE 50 MG/ML 1 ML VIAL IVP STA (22:35)
--- NOTE | 2017-08-29 23:00 | XR ---
EXAMINATION TYPE: XR lumbosacral spine min 4V DATE OF EXAM: 08/29/2017 COMPARISON: 01/24/2015 HISTORY: Back pain TECHNIQUE: 5 views FINDINGS: The lumbar vertebra have normal alignment. Posterior elements are intact. There is minor an terior spurring in the lumbar spine. There is no compression fracture. This spaces are fairly well-ma intained. Sacroiliac joints appear normal. IMPRESSION: Mild degenerative spur formation. No fracture. No adverse change compared to old exam.
--- NOTE | 2017-08-29 23:14 | ED ---
Back Pain HPI - General Chief Complaint: Back Pain/Injury Stated Complaint: fall/back & neck pain Time Seen by Provider: 08/29/17 22:21 Source: patient, RN notes reviewed Limitations: no limitations - History of Present Illness Initial Comments: 42-year-old female presents emergency Department chief complaint of slip and fall. Patient states that she was shoulder no last night and fell twice. She states she fell directly onto her buttocks region. She complains of pain in her low back, tailbone region. Patient states that she also twisted her right knee. She states that she did not fall down on it she states that she just feels that she strained a denies any swelling no discoloration. Denies any lower extremity paresthesias denies saddle anesthesias. Patient has no bowel incontinence or bladder retention. She has no dysuria no hematuria. Patient states the pain in her back is radiating up her spine states is causing her to have a headache. - Related Data Home Medications Medication Instructions Recorded Confirmed Insulin Glargine,Hum.rec.anlog 5 unit SQ AC-TID 07/24/17 08/29/17 [Basaglar Kwikpen U-100] Insulin Glulisine [Apidra] 15 unit SQ HS 07/29/17 08/29/17 Loratadine [Claritin] 10 mg PO HS 08/19/17 08/29/17 OLANZapine [ZyPREXA] 10 mg PO BID@0900,2200 08/19/17 08/29/17 FLUoxetine HCL [PROzac] 40 mg PO DAILY 08/29/17 08/29/17 Meloxicam 7.5 mg PO W/SUPPER 08/29/17 08/29/17 Omeprazole 20 mg PO BID 08/29/17 08/29/17 hydrOXYzine HCL [Atarax] 25 mg PO TID 08/29/17 08/29/17 oxyCODONE-APAP 10-325MG [Percocet 1 tab PO Q4H PRN 08/29/17 08/29/17 10-325 mg] Previous Rx's Medication Instructions Recorded Imipramine [Tofranil] 25 mg PO HS #30 tab 08/02/17 Lisinopril [Zestril] 10 mg PO HS tab 08/02/17 OXcarbazepine [Trileptal] 300 mg PO BID #60 tab 08/02/17 SUMAtriptan SUCCINATE [Imitrex] 100 mg PO DAILY PRN tab 08/02/17 metFORMIN HCL [Glucophage] 1,000 mg PO BID-W/MEALS tab 08/02/17 Allergies Allergy/AdvReac Type Severity Reaction Status Date / Time bupropion HCl Allergy Rash/Hives Verified 08/29/17 22:29 [From Wellbutrin] fentanyl Allergy Swelling Verified 08/29/17 22:29 Iodinated Contrast- Oral and Allergy Anaphylaxis Verified 08/29/17 22:29 IV Dye [Iodinated Contrast Media - IV Dye] orange juice [[place]] Allergy Rash/Hives Verified 08/29/17 22:29 Sulfa (Sulfonamide Allergy Rash/Hives Verified 08/29/17 22:29 Antibiotics) Penicillins AdvReac Nausea & Verified 08/29/17 22:29 Vomiting Review of Systems ROS Statement: Those systems with pertinent positive or pertinent negative responses have been documented in the HPI. ROS Other: All systems not noted in ROS Statement are negative. 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 Pt states that about 6 months ago she started with skin discoloration L ankle that has increased in size-she saw a pond worker who prescibed antibiotic cream with no improvement-she also states the skin feels tight in that area and that her ankle now will occasionally "pop." History of Any Multi-Drug Resistant Organisms: None Reported Date of last positivie culture/infection: 05/14/17 MDRO Source:: ESBL URINE Past Surgical History: Bladder Surgery, Section, Cholecystectomy, Hysterectomy, Orthopedic Surgery, Tubal Ligation Additional Past Surgical History / Comment(s): R ovarian cystectomy, laparoscopic surgery for L ovary that had attached to the bowel, D&C, numerous lithotripsies, nephroscopies, cystoscopies and stents to ureters-none in place at this time, L robotic pyeloplasty with post op infection around kidney which then required a picc line/later removed (pt states was not MRSA), L rotator cuff repair, L wrist tendon surgery, lithotripsy Past Anesthesia/Blood Transfusion Reactions: Family History of Problems w/ Anesthesia Additional Past Anesthesia/Blood Transfusion Reaction / Comment(s): dad-hard time waking up due to enzyme problems in liver Past Psychological History: ADD/ADHD, Anxiety, Bipolar, Depression Smoking Status: Current every day smoker Past Alcohol Use History: None Reported Past Drug Use History: None Reported - Past Family History Brother(s) Family Medical History: Cancer Additional Family Medical History / Comment(s): testicular Father Family Medical History: Coronary Artery Disease (CAD), CVA/TIA, Diabetes Mellitus, Renal Disease Additional Family Medical History / Comment(s): GLAUCOMA,NEUROPATHY HAD TRIPLE CABG, with dementia Mother Family Medical History: Hyperlipidemia Additional Family Medical History / Comment(s): DDD, HAD 3 vessel CABG AGE 53. General Exam Limitations: no limitations General appearance: alert, in no apparent distress Head exam: Present: atraumatic, normocephalic, normal inspection Eye exam: Present: normal appearance, PERRL, EOMI. Absent: scleral icterus, conjunctival injection, periorbital swelling ENT exam: Present: normal exam, normal oropharynx, mucous membranes moist, TM's normal bilaterally, normal external ear exam Neck exam: Present: normal inspection, full ROM. Absent: tenderness, meningismus, lymphadenopathy Respiratory exam: Present: normal lung sounds bilaterally. Absent: respiratory distress, wheezes, rales, rhonchi, stridor Cardiovascular Exam: Present: regular rate, normal rhythm, normal heart sounds. Absent: systolic murmur, diastolic murmur, rubs, gallop, clicks GI/Abdominal exam: Present: soft, normal bowel sounds. Absent: distended, tenderness, guarding, rebound, rigid Extremities exam: Present: other (Right knee full range of motion nontender with palpation discomfort with range of motion neurovascular intact negative anterior posterior drawer no pain with valgus varus) Back exam: Present: normal inspection, full ROM, tenderness (Mild tenderness of the lumbar region), vertebral tenderness. Absent: CVA tenderness (R), CVA tenderness (L), paraspinal tenderness Neurological exam: Present: alert, oriented X3, CN II-XII intact, reflexes normal, other ([id number] intact bilaterally without overshooting.). Absent : motor sensory deficit Skin exam: Present: warm, dry, intact, normal color. Absent: rash Course Vital Signs 08/29/17 22:15 Temperature 97.7 F Pulse Rate 102 H Respiratory 18 Rate Blood Pressure 129/79 O2 Sat by Pulse 100 Oximetry Medical Decision Making - Medical Decision Making 42-year-old female presents from for slipped and fall back pain. X-rays reviewed no acute abnormality. Patient has contusion to her low back. She did complain of associated headache from the pain in which she was given medications and she feels improved. Patient will be discharged at this time advise follow-up with primary care physician. Disposition Clinical Impression: Lumbar back pain, Fall due to slipping on ice or snow, Headache Disposition: HOME SELF-CARE Condition: Stable Instructions: Acute Low Back Pain (ED) Additional Instructions: Please return to the Emergency Department if symptoms worsen or any other concerns. Referrals: Melchor Stevens MD [Primary Care Provider] - 1-2 days Time of Disposition: 23:13
[2017-08-29] MEDS ORDERED: ORPHENADRINE 30 MG/ML 2 ML VIAL IVP STA (23:19)
[2017-08-29 23:47] VITALS: BP 128/62; PULSE 70; TEMP 97.6
== END 2017-08-29 23:50 | disposition home or self-care (01) ==
LOC: EC 22:11
DX: M54.5 Low back pain (principal); R51 Headache; E11.9 Type 2 diabetes mellitus without complications; I10 Essential (primary) hypertension; F31.9 Bipolar disorder, unspecified; F90.9 Attention-deficit hyperactivity disorder, unspecified type; F41.9 Anxiety disorder, unspecified; F17.200 Nicotine dependence, unspecified, uncomplicated; Z79.4 Long term (current) use of insulin; Z79.1 Long term (current) use of non-steroidal anti-inflammatories (NSAID); Z79.899 Other long term (current) drug therapy; Z88.0 Allergy status to penicillin; Z88.2 Allergy status to sulfonamides; Z88.8 Allergy status to other drugs, medicaments and biological substances; Z88.5 Allergy status to narcotic agent; Z91.041 Radiographic dye allergy status; Z91.018 Allergy to other foods; Z98.890 Other specified postprocedural states; W00.0XXA Fall on same level due to ice and snow, initial encounter
CPT/HCPCS: 72110; 99283; 96374; 96375 ×3; 96361; J1200; J2360; J2765; J1885

== ENCOUNTER 2017-10-23 13:37 | Emergency (ER) | payer OTHER ==
[2017-10-23] MEDS ORDERED: KETOROLAC 30 MG/ML 1 ML VIAL IVP STA (14:44)
[2017-10-23] MEDS ORDERED: MORPHINE SULFATE 4 MG/ML SYRINGE IVP STA ×2 (14:44→16:12)
[2017-10-23] MEDS ORDERED: ONDANSETRON 4 MG/2 ML VIAL IVP STA (14:44)
--- NOTE | 2017-10-23 14:46 | ED ---
General Adult HPI - General Chief complaint: Abdominal Pain Stated complaint: Kidney stone Time Seen by Provider: 10/23/17 14:32 Source: patient, RN notes reviewed, old records reviewed Mode of arrival: ambulatory Limitations: no limitations - History of Present Illness Initial comments: 42-year-old female presents with left flank pain. Patient does have history of chronic kidney stones. She states this pain is similar to her previous stones. Pain is been ongoing for approximately one week. Describes it as constant in nature. She does also report some dysuria and dysuria. She is also had several episodes of vomiting which was with significant pain. 2 episodes today. Nonbloody nonbilious. No central abdominal pain. No chest pain or shortness of breath. No URI symptoms. She does report subjective fever and chills. No diarrhea. - Related Data Home Medications Medication Instructions Recorded Confirmed Insulin Glargine,Hum.rec.anlog 15 unit SQ HS 07/24/17 10/23/17 [Basaglar Kwikpen U-100] Insulin Glulisine [Apidra] 5 unit SQ AC-TID 07/29/17 10/23/17 Loratadine [Claritin] 10 mg PO HS 08/19/17 10/23/17 OLANZapine [ZyPREXA] 10 mg PO BID@0900,2200 08/19/17 10/23/17 FLUoxetine HCL [PROzac] 40 mg PO DAILY 08/29/17 10/23/17 Meloxicam 7.5 mg PO HS 08/29/17 10/23/17 Omeprazole 20 mg PO DAILY 08/29/17 10/23/17 hydrOXYzine HCL [Atarax] 25 mg PO TID 08/29/17 10/23/17 oxyCODONE-APAP 10-325MG [Percocet 1 tab PO QID PRN 08/29/17 10/23/17 10-325 mg] Divalproex ER [Depakote ER] 500 mg PO BID 10/23/17 10/23/17 Previous Rx's Medication Instructions Recorded Imipramine [Tofranil] 25 mg PO HS #30 tab 08/02/17 Lisinopril [Zestril] 10 mg PO HS tab 08/02/17 SUMAtriptan SUCCINATE [Imitrex] 100 mg PO DAILY PRN tab 08/02/17 metFORMIN HCL [Glucophage] 1,000 mg PO BID-W/MEALS tab 08/02/17 Ciprofloxacin HCl [Cipro] 500 mg PO Q12HR #14 tablet 10/23/17 Allergies Allergy/AdvReac Type Severity Reaction Status Date / Time bupropion HCl Allergy Rash/Hives Verified 10/23/17 14:40 [From Wellbutrin] fentanyl Allergy Swelling Verified 10/23/17 14:40 Iodinated Contrast- Oral and Allergy Anaphylaxis Verified 10/23/17 14:40 IV Dye [Iodinated Contrast Media - IV Dye] orange juice [[place]] Allergy Rash/Hives Verified 10/23/17 14:40 Sulfa (Sulfonamide Allergy Rash/Hives Verified 10/23/17 14:40 Antibiotics) Penicillins AdvReac Nausea & Verified 10/23/17 14:40 Vomiting Review of Systems ROS Statement: Those systems with pertinent positive or pertinent negative responses have been documented in the HPI. ROS Other: All systems not noted in ROS Statement are negative. 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 Pt states that about 6 months ago she started with skin discoloration L ankle that has increased in size-she saw a heel caser who prescibed antibiotic cream with no improvement-she also states the skin feels tight in that area and that her ankle now will occasionally "pop." History of Any Multi-Drug Resistant Organisms: None Reported Date of last positivie culture/infection: 05/14/17 MDRO Source:: ESBL URINE Past Surgical History: Bladder Surgery, Section, Cholecystectomy, Hysterectomy, Orthopedic Surgery, Tubal Ligation Additional Past Surgical History / Comment(s): R ovarian cystectomy, laparoscopic surgery for L ovary that had attached to the bowel, D&C, numerous lithotripsies, nephroscopies, cystoscopies and stents to ureters-none in place at this time, L robotic pyeloplasty with post op infection around kidney which then required a picc line/later removed (pt states was not MRSA), L rotator cuff repair, L wrist tendon surgery, lithotripsy Past Anesthesia/Blood Transfusion Reactions: Family History of Problems w/ Anesthesia Additional Past Anesthesia/Blood Transfusion Reaction / Comment(s): dad-hard time waking up due to enzyme problems in liver Past Psychological History: ADD/ADHD, Anxiety, Bipolar, Depression Smoking Status: Current every day smoker Past Alcohol Use History: None Reported Past Drug Use History: None Reported - Past Family History Brother(s) Family Medical History: Cancer Additional Family Medical History / Comment(s): testicular Father Family Medical History: Coronary Artery Disease (CAD), CVA/TIA, Diabetes Mellitus, Renal Disease Additional Family Medical History / Comment(s): GLAUCOMA,NEUROPATHY HAD TRIPLE CABG, with dementia Mother Family Medical History: Hyperlipidemia Additional Family Medical History / Comment(s): DDD, HAD 3 vessel CABG AGE 53. General Exam Limitations: no limitations General appearance: alert, in no apparent distress Head exam: Present: atraumatic, normocephalic Eye exam: Present: normal appearance, PERRL ENT exam: Present: mucous membranes dry Neck exam: Present: normal inspection. Absent: tenderness, meningismus Respiratory exam: Present: normal lung sounds bilaterally. Absent: respiratory distress, wheezes Cardiovascular Exam: Present: normal rhythm, tachycardia GI/Abdominal exam: Present: soft. Absent: distended, tenderness Extremities exam: Present: normal inspection, normal capillary refill. Absent: pedal edema, calf tenderness Back exam: Present: CVA tenderness (L) Neurological exam: Present: alert, oriented X3, CN II-XII intact. Absent: motor sensory deficit Psychiatric exam: Present: normal affect, normal mood Skin exam: Present: warm, intact, diaphoretic Course Vital Signs 10/23/17 10/23/17 13:54 16:58 Temperature 98.6 F 97.6 F Pulse Rate 112 H 108 H Respiratory 18 20 Rate Blood Pressure 141/85 113/70 O2 Sat by Pulse 98 98 Oximetry Medical Decision Making - Medical Decision Making 42-year-old female presenting with left flank pain. Urinalysis is obtained, there is both significant RBCs and WBCs. She also has 2+ ketones consistent with dehydration. Laboratory studies revealed mild leukocytosis 11.4, hemoglobin is 13.6 which is stable. There is mild anion gap acidosis with a CO2 of 18 and an anion gap 20 again secondary to dehydration. X-rays obtained, is negative for any acute obstruction or intraperitoneal free air. CT is performed for concern of obstructing renal stone, there is 2 mm nonobstructing stones bilaterally. As well as inflammation of the bladder consistent with cystitis. Urine culture will be obtained. On reevaluation patient is feeling better, resting comfortably. She will be started on ciprofloxacin and will follow up with her primary care physician as well as urology. - Lab Data Result diagrams: 10/23/17 15:13 10/23/17 15:13 Lab Results 10/23/17 10/23/17 10/23/17 Range/Units 14:58 14:58 15:13 WBC 11.9 H (3.8-10.6) k/uL RBC 5.08 (3.80-5.40) m/uL Hgb 13.6 (11.4-16.0) gm/dL Hct 40.1 (34.0-46.0) % MCV 79.0 L (80.0-100.0) fL MCH 26.8 (25.0-35.0) pg MCHC 33.9 (31.0-37.0) g/dL RDW 14.1 (11.5-15.5) % Plt Count 334 (150-450) k/uL Neutrophils % 64 % Lymphocytes % 28 % Monocytes % 4 % Eosinophils % 2 % Basophils % 0 % Neutrophils # 7.6 (1.3-7.7) k/uL Lymphocytes # 3.4 (1.0-4.8) k/uL Monocytes # 0.5 (0-1.0) k/uL Eosinophils # 0.3 (0-0.7) k/uL Basophils # 0.1 (0-0.2) k/uL Sodium (137-145) mmol/L Potassium (3.5-5.1) mmol/L Chloride (98-107) mmol/L Carbon Dioxide (22-30) mmol/L Anion Gap mmol/L BUN (7-17) mg/dL Creatinine (0.52-1.04) mg/dL Est GFR (CKD-EPI)AfAm (>60 ml/min/1.73 sqM) Est GFR (CKD-EPI)NonAf (>60 ml/min/1.73 sqM) Glucose (74-99) mg/dL Calcium (8.4-10.2) mg/dL Total Bilirubin (0.2-1.3) mg/dL AST (14-36) U/L ALT (9-52) U/L Alkaline Phosphatase (38-126) U/L Total Protein (6.3-8.2) g/dL Albumin (3.5-5.0) g/dL Urine Color Yellow Urine Appearance Cloudy H (Clear) Urine pH 5.5 (5.0-8.0) Ur Specific [place] 1.016 (1.001-1.035) Urine Protein 1+ H (Negative) Urine Glucose (UA) Negative (Negative) Urine Ketones 2+ H (Negative) Urine Blood Large H (Negative) Urine Nitrite Negative (Negative) Urine Bilirubin Negative (Negative) Urine Urobilinogen <2.0 (<2.0) mg/dL Ur Leukocyte Esterase Large H (Negative) Urine RBC >182 H (0-5) /hpf Urine WBC >182 H (0-5) /hpf Urine WBC Clumps Many H (None) /hpf Ur Squamous Epith Cells 6 H (0-4) /hpf Hyaline Casts 4 H (0-2) /lpf Urine Mucus Few H (None) /hpf Urine HCG, Qual Not Detected (Not Detectd) 10/23/17 Range/Units 15:13 WBC (3.8-10.6) k/uL RBC (3.80-5.40) m/uL Hgb (11.4-16.0) gm/dL Hct (34.0-46.0) % MCV (80.0-100.0) fL MCH (25.0-35.0) pg MCHC (31.0-37.0) g/dL RDW (11.5-15.5) % Plt Count (150-450) k/uL Neutrophils % % Lymphocytes % % Monocytes % % Eosinophils % % Basophils % % Neutrophils # (1.3-7.7) k/uL Lymphocytes # (1.0-4.8) k/uL Monocytes # (0-1.0) k/uL Eosinophils # (0-0.7) k/uL Basophils # (0-0.2) k/uL Sodium 139 (137-145) mmol/L Potassium 4.6 (3.5-5.1) mmol/L Chloride 101 (98-107) mmol/L Carbon Dioxide 18 L (22-30) mmol/L Anion Gap 20 mmol/L BUN 12 (7-17) mg/dL Creatinine 0.66 (0.52-1.04) mg/dL Est GFR (CKD-EPI)AfAm >90 (>60 ml/min/1.73 sqM) Est GFR (CKD-EPI)NonAf >90 (>60 ml/min/1.73 sqM) Glucose 151 H (74-99) mg/dL Calcium 10.0 (8.4-10.2) mg/dL Total Bilirubin 0.7 (0.2-1.3) mg/dL AST 20 (14-36) U/L ALT 23 (9-52) U/L Alkaline Phosphatase 119 (38-126) U/L Total Protein 7.6 (6.3-8.2) g/dL Albumin 4.7 (3.5-5.0) g/dL Urine Color Urine Appearance (Clear) Urine pH (5.0-8.0) Ur Specific [place] (1.001-1.035) Urine Protein (Negative) Urine Glucose (UA) (Negative) Urine Ketones (Negative) Urine Blood (Negative) Urine Nitrite (Negative) Urine Bilirubin (Negative) Urine Urobilinogen (<2.0) mg/dL Ur Leukocyte Esterase (Negative) Urine RBC (0-5) /hpf Urine WBC (0-5) /hpf Urine WBC Clumps (None) /hpf Ur Squamous Epith Cells (0-4) /hpf Hyaline Casts (0-2) /lpf Urine Mucus (None) /hpf Urine HCG, Qual (Not Detectd) Disposition Clinical Impression: Left flank pain, chronic, UTI (urinary tract infection) Disposition: HOME SELF-CARE Condition: Fair Instructions: Abdominal Pain (ED), Kidney Stones (ED), Urinary Tract Infection in Women (ED) Prescriptions: Ciprofloxacin HCl [Cipro] 500 mg PO Q12HR #14 tablet Is patient prescribed a controlled substance at d/c from ED?: No Referrals: Melchor Stevens MD [Primary Care Provider] - 1-2 days Time of Disposition: 17:18
[2017-10-23 15:20] LABS: Appearance,Urine Cloudy (Clear); Bilirubin,Urine Negative (Negative); Blood,Urine Large (Negative); Color,Urine Yellow; Glucose,Urine (UA) Negative (Negative); Hyaline Casts,Urine 4 /lpf (0-2); Ketones,Urine 2+ (Negative); Leukocyte Esterase,Urine Large (Negative); Mucus,Urine Few /hpf; Nitrite,Urine Negative (Negative); PH, Urine 5.5 (5.0-8.0); Protein,Urine 1+ (Negative); RBC,Urine >182 /hpf (0-5); Specific Gravity,Urine 1.016 (1.001-1.035); Squamous Epithelial Cell,Urine 6 /hpf (0-4); Urobilinogen,Urine <2.0 mg/dL (<2.0); WBC,Urine >182 /hpf (0-5)
[2017-10-23 15:33] LABS: Basophils # (A) 0.1 k/uL (0-0.2); Basophils % (A) 0 %; Eosinophils # (A) 0.3 k/uL (0-0.7); Eosinophils % (A) 2 %; HCT 40.1 % (34.0-46.0); HGB 13.6 gm/dL (11.4-16.0); Lymphocytes # (A) 3.4 k/uL (1.0-4.8); Lymphocytes % (A) 28 %; MCH 26.8 pg (25.0-35.0); MCHC 33.9 g/dL (31.0-37.0); Mean Platelet Volume 7.4; Monocytes # (A) 0.5 k/uL (0-1.0); Monocytes % (A) 4 %; Neutrophils # (A) 7.6 k/uL (1.3-7.7); Neutrophils % (A) 64 %; Platelet Count 334 k/uL (150-450); RBC 5.08 m/uL (3.80-5.40); RDW 14.1 % (11.5-15.5); WBC 11.9 k/uL (3.8-10.6)
[2017-10-23 15:45] LABS: ALT 23 U/L (9-52); AST 20 U/L (14-36); Albumin 4.7 g/dL (3.5-5.0); Alkaline Phosphatase 119 U/L (38-126); Anion Gap 20 mmol/L; Blood Urea Nitrogen 12 mg/dL (7-17); Carbon Dioxide 18 mmol/L (22-30); Chloride 101 mmol/L (98-107); Glucose 151 mg/dL (74-99); Potassium 4.6 mmol/L (3.5-5.1); Sodium 139 mmol/L (137-145); Total Bilirubin 0.7 mg/dL (0.2-1.3); Total Protein 7.6 g/dL (6.3-8.2)
--- NOTE | 2017-10-23 15:47 | XR ---
EXAMINATION TYPE: XR KUB DATE OF EXAM: 10/23/2017 3:37 PM CLINICAL HISTORY: Left-sided pain. TECHNIQUE: Two Upright KUB images of the abdomen are obtained. COMPARISON: X-ray July 24, 2017 FINDINGS: Scattered gas is seen in non-distended small bowel loops. Gas and fecal material is seen in non-distended colon. Cholecystectomy clips are present. Lung bases are clear. Slight S-shaped scolio tic curvature is again seen. No pneumoperitoneum is noted. IMPRESSION: Overall nonobstructive bowel gas pattern. No significant change from prior.
[2017-10-23] MEDS ORDERED: SODIUM CHLORIDE 0.9% 1,000 ML IV ONE (16:12)
--- NOTE | 2017-10-23 16:55 | CT ---
EXAMINATION TYPE: CT abdomen pelvis wo con DATE OF EXAM: 10/23/2017 COMPARISON: 05/14/2017 HISTORY: 42-year-old female Patient complains of left flank pain with a history of prior renal stones . CT DLP: 972 mGycm. Automated exposure control for dose reduction was used. TECHNIQUE: Contiguous axial scanning of the abdomen and pelvis without IV contrast. Coronal and sagit radha reconstructions performed. FINDINGS: Heart is normal size without pericardial effusion. Strandy dependent atelectasis left base. No pleura l effusion. Liver mildly enlarged measuring 18.1 cm. Diffuse low-attenuation compatible with fatty infiltration. Cholecystectomy clips. Adrenal glands, spleen with hilar and anterior splenules, and pancreas appear within normal limits. Punctate 2 mm nonobstructive calculus lower pole right kidney. Punctate 2 mm nonobstructive calculus mid pole left kidney. Mild left-sided pelvicaliectasis to be transient. No suspicious calcification seen along the course o f the left ureter and no evidence for hydroureter. No dilated small bowel, free fluid, or free air. No mesenteric or retroperitoneal lymphadenopathy. Normal appendix. Moderate stool burden without pericolonic inflammatory change. Bladder nondistended. Mild circumferential bladder wall thickening may relate to nondistention. Multi ple pelvic phleboliths. Uterus surgically absent. No abnormal fluid collection in the pelvis or pelvi c lymphadenopathy. Bones: Small bone islands about the hips and also in the posterior right iliac bone. These are unchan ged. No osseous destructive process. IMPRESSION: 1. A punctate 2 mm nonobstructive calculus in each kidney. Slight asymmetric fullness of the left re nal collecting system is probably transient. No suspicious ureteral calculus or hydroureter. 2. Mild circumference of bladder wall thickening may relate to nondistention or cystitis. Clinically correlate. 3. Mild hepatomegaly (18.1 cm) with fatty infiltration of the liver.
[2017-10-23 17:54] VITALS: BP 112/78; PULSE 100; RESP 16; TEMP 98.7
== END 2017-10-23 17:53 | disposition home or self-care (01) ==
LOC: EC 13:37
DX: N39.0 Urinary tract infection, site not specified (principal); D72.829 Elevated white blood cell count, unspecified; E87.2 Acidosis; E86.0 Dehydration; N20.0 Calculus of kidney; R39.89 Other symptoms and signs involving the genitourinary system; R61 Generalized hyperhidrosis; R00.0 Tachycardia, unspecified; R11.10 Vomiting, unspecified; E11.9 Type 2 diabetes mellitus without complications; F31.9 Bipolar disorder, unspecified; F41.9 Anxiety disorder, unspecified; F17.200 Nicotine dependence, unspecified, uncomplicated; Z79.1 Long term (current) use of non-steroidal anti-inflammatories (NSAID); Z79.4 Long term (current) use of insulin; Z79.899 Other long term (current) drug therapy; Z88.0 Allergy status to penicillin; Z88.2 Allergy status to sulfonamides; Z88.5 Allergy status to narcotic agent; Z88.8 Allergy status to other drugs, medicaments and biological substances; Z91.018 Allergy to other foods; Z91.041 Radiographic dye allergy status; Z87.39 Personal history of other diseases of the musculoskeletal system and connective tissue; Z90.49 Acquired absence of other specified parts of digestive tract; Z98.890 Other specified postprocedural states; Z84.1 Family history of disorders of kidney and ureter
CPT/HCPCS: 99285; 96374; 96375 ×2; 96376; 96361; 36415; 80053; 85025; 81001; 81025; 87086; 74018; 74176; J2270; J2405; J1885

== ENCOUNTER 2017-10-26 09:36 | Inpatient (IN) | payer OTHER ==
[2017-10-26] MEDS ORDERED: MORPHINE SULFATE 4 MG/ML SYRINGE IVP STA (10:27)
[2017-10-26] MEDS ORDERED: ONDANSETRON ODT 4 MG TAB PO STA (10:27)
[2017-10-26] MEDS ORDERED: SODIUM CHLORIDE 0.9% 1,000 ML IV STA (10:27)
--- NOTE | 2017-10-26 10:33 | ED ---
General Adult HPI - General Chief complaint: Abdominal Pain Stated complaint: Kidney stone & UTI Time Seen by Provider: 10/26/17 10:23 Source: patient, RN notes reviewed, old records reviewed Mode of arrival: ambulatory Limitations: no limitations - History of Present Illness Initial comments: Patient's a 42-year-old female presenting to the emergency room today with a chief complaint of possible kidney stone and urinary tract infection. She was seen here in the emergency room just 3 days ago. She was started on ciprofloxacin. She's been taking this a total of 5 doses. States pain is not improving. States had increased nausea vomiting and left flank pain this morning. Patient states symptoms are consistent with kidney stones that she's had in the past. She denies any other complaints or associated symptoms at this time. Patient denies any recent fever, chills, shortness of breath, chest pain, back pain, numbness or tingling, headaches or visual changes, or any other complaints. - Related Data Home Medications Medication Instructions Recorded Confirmed Insulin Glargine,Hum.rec.anlog 15 unit SQ HS 07/24/17 10/26/17 [Basaglar Kwikpen U-100] Insulin Glulisine [Apidra] 5 unit SQ AC-TID 07/29/17 10/26/17 Loratadine [Claritin] 10 mg PO HS 08/19/17 10/26/17 OLANZapine [ZyPREXA] 10 mg PO BID@0900,2200 08/19/17 10/26/17 FLUoxetine HCL [PROzac] 40 mg PO DAILY 08/29/17 10/26/17 Meloxicam 7.5 mg PO HS 08/29/17 10/26/17 Omeprazole 20 mg PO DAILY 08/29/17 10/26/17 hydrOXYzine HCL [Atarax] 25 mg PO TID 08/29/17 10/26/17 oxyCODONE-APAP 10-325MG [Percocet 1 tab PO QID PRN 08/29/17 10/26/17 10-325 mg] Divalproex ER [Depakote ER] 500 mg PO BID 10/23/17 10/26/17 Previous Rx's Medication Instructions Recorded Imipramine [Tofranil] 25 mg PO HS #30 tab 08/02/17 Lisinopril [Zestril] 10 mg PO HS tab 08/02/17 SUMAtriptan SUCCINATE [Imitrex] 100 mg PO DAILY PRN tab 08/02/17 metFORMIN HCL [Glucophage] 1,000 mg PO BID-W/MEALS tab 08/02/17 Ciprofloxacin HCl [Cipro] 500 mg PO Q12HR #14 tablet 10/23/17 Allergies Allergy/AdvReac Type Severity Reaction Status Date / Time bupropion HCl Allergy Rash/Hives Verified 10/26/17 10:25 [From Wellbutrin] fentanyl Allergy Swelling Verified 10/26/17 10:25 Iodinated Contrast- Oral and Allergy Anaphylaxis Verified 10/26/17 10:25 IV Dye [Iodinated Contrast Media - IV Dye] orange juice [[place]] Allergy Rash/Hives Verified 10/26/17 10:25 Sulfa (Sulfonamide Allergy Rash/Hives Verified 10/26/17 10:25 Antibiotics) Penicillins AdvReac Nausea & Verified 10/26/17 10:25 Vomiting Review of Systems ROS Statement: Those systems with pertinent positive or pertinent negative responses have been documented in the HPI. ROS Other: All systems not noted in ROS Statement are negative. 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 Pt states that about 6 months ago she started with skin discoloration L ankle that has increased in size-she saw a imaging specialist who prescibed antibiotic cream with no improvement-she also states the skin feels tight in that area and that her ankle now will occasionally "pop." History of Any Multi-Drug Resistant Organisms: None Reported Date of last positivie culture/infection: 05/14/17 MDRO Source:: ESBL URINE Past Surgical History: Bladder Surgery, Section, Cholecystectomy, Hysterectomy, Orthopedic Surgery, Tubal Ligation Additional Past Surgical History / Comment(s): R ovarian cystectomy, laparoscopic surgery for L ovary that had attached to the bowel, D&C, numerous lithotripsies, nephroscopies, cystoscopies and stents to ureters-none in place at this time, L robotic pyeloplasty with post op infection around kidney which then required a picc line/later removed (pt states was not MRSA), L rotator cuff repair, L wrist tendon surgery, lithotripsy Past Anesthesia/Blood Transfusion Reactions: Family History of Problems w/ Anesthesia Additional Past Anesthesia/Blood Transfusion Reaction / Comment(s): dad-hard time waking up due to enzyme problems in liver Past Psychological History: ADD/ADHD, Anxiety, Bipolar, Depression Smoking Status: Current every day smoker Past Alcohol Use History: None Reported Past Drug Use History: None Reported - Past Family History Brother(s) Family Medical History: Cancer Additional Family Medical History / Comment(s): testicular Father Family Medical History: Coronary Artery Disease (CAD), CVA/TIA, Diabetes Mellitus, Renal Disease Additional Family Medical History / Comment(s): GLAUCOMA,NEUROPATHY HAD TRIPLE CABG, with dementia Mother Family Medical History: Hyperlipidemia Additional Family Medical History / Comment(s): DDD, HAD 3 vessel CABG AGE 53. General Exam - General Exam Comments Initial Comments: General: The patient is awake and alert, in no distress, and does not appear acutely ill. Eye: Pupils are equal, round and reactive to light, extra-ocular movements are intact. No nystagmus. There is normal conjunctiva bilaterally. No signs of icterus. Ears, nose, mouth and throat: There are moist mucous membranes and no oral lesions. Neck: The neck is supple, there is no tenderness or JVD. Cardiovascular: There is a regular rate and rhythm. No murmur, rub or gallop is appreciated. Respiratory: Lungs are clear to auscultation, respirations are non-labored, breath sounds are equal. No wheezes, stridor, rales, or rhonchi. Gastrointestinal: Abdomen soft on palpation. Mild tenderness left flank area and left CVA. No rebound tenderness. No guarding. No rebound tenderness. Musculoskeletal: Normal ROM, no tenderness. Strength 5/5. Sensation intact. Pulses equal bilaterally 2+. Neurological: A&O x 3. CN II-XII intact, There are no obvious motor or sensory deficits. Coordination appears grossly intact. Speech is normal. Skin: Skin is warm and dry and no rashes or lesions are noted. Psychiatric: Cooperative, appropriate mood & affect, normal judgment. Limitations: no limitations Course Vital Signs 10/26/17 10/26/17 10:08 12:33 Temperature 98.5 F 98 F Pulse Rate 110 H 89 Respiratory 16 18 Rate Blood Pressure 142/86 115/57 O2 Sat by Pulse 100 99 Oximetry Medical Decision Making - Medical Decision Making Patient reexamined at this time shows no signs of distress. She does admit feeling better here the emergency room. Patient does admit that symptoms seem to be increased over the last 3 days. Patient urinalysis does show positive nitrate today which was -3 days ago. Patient's urinalysis still consistent with an infection at this time. Patient was on ciprofloxacin at home. Culture will reviewed and does show sensitivity. Patient given 2 g Rocephin here in the ER. Patient's KUB is unremarkable. Ultrasound of the kidneys and bladder shows stone on the left side most only visualized on the right today that was seen on CT 3 days ago. Patient will be admitted to hospital for further IV antibiotics. - Lab Data Result diagrams: 10/26/17 10:30 10/26/17 10:30 Lab Results 10/26/17 10/26/17 10/26/17 Range/Units 10:30 10:30 10:30 WBC 7.6 (3.8-10.6) k/uL RBC 5.13 (3.80-5.40) m/uL Hgb 13.5 (11.4-16.0) gm/dL Hct 40.5 (34.0-46.0) % MCV 78.9 L (80.0-100.0) fL MCH 26.4 (25.0-35.0) pg MCHC 33.5 (31.0-37.0) g/dL RDW 13.9 (11.5-15.5) % Plt Count 326 (150-450) k/uL Neutrophils % 65 % Lymphocytes % 28 % Monocytes % 4 % Eosinophils % 2 % Basophils % 0 % Neutrophils # 4.9 (1.3-7.7) k/uL Lymphocytes # 2.1 (1.0-4.8) k/uL Monocytes # 0.3 (0-1.0) k/uL Eosinophils # 0.2 (0-0.7) k/uL Basophils # 0.0 (0-0.2) k/uL PT (9.0-12.0) sec INR (<1.2) APTT (22.0-30.0) sec Sodium 140 (137-145) mmol/L Potassium 4.6 (3.5-5.1) mmol/L Chloride 103 (98-107) mmol/L Carbon Dioxide 22 (22-30) mmol/L Anion Gap 15 mmol/L BUN 13 (7-17) mg/dL Creatinine 0.62 (0.52-1.04) mg/dL Est GFR (CKD-EPI)AfAm >90 (>60 ml/min/1.73 sqM) Est GFR (CKD-EPI)NonAf >90 (>60 ml/min/1.73 sqM) Glucose 162 H (74-99) mg/dL Calcium 9.8 (8.4-10.2) mg/dL Total Bilirubin 0.4 (0.2-1.3) mg/dL AST 26 (14-36) U/L ALT 29 (9-52) U/L Alkaline Phosphatase 116 (38-126) U/L Total Protein 7.2 (6.3-8.2) g/dL Albumin 4.5 (3.5-5.0) g/dL Urine Color Urine Appearance (Clear) Urine pH (5.0-8.0) Ur Specific [place] (1.001-1.035) Urine Protein (Negative) Urine Glucose (UA) (Negative) Urine Ketones (Negative) Urine Blood (Negative) Urine Nitrite (Negative) Urine Bilirubin (Negative) Urine Urobilinogen (<2.0) mg/dL Ur Leukocyte Esterase (Negative) Urine RBC (0-5) /hpf Urine WBC (0-5) /hpf Urine WBC Clumps (None) /hpf Ur Squamous Epith Cells (0-4) /hpf Urine Bacteria (None) /hpf Urine Mucus (None) /hpf Urine HCG, Qual Not Detected (Not Detectd) 10/26/17 10/26/17 Range/Units 10:30 10:30 WBC (3.8-10.6) k/uL RBC (3.80-5.40) m/uL Hgb (11.4-16.0) gm/dL Hct (34.0-46.0) % MCV (80.0-100.0) fL MCH (25.0-35.0) pg MCHC (31.0-37.0) g/dL RDW (11.5-15.5) % Plt Count (150-450) k/uL Neutrophils % % Lymphocytes % % Monocytes % % Eosinophils % % Basophils % % Neutrophils # (1.3-7.7) k/uL Lymphocytes # (1.0-4.8) k/uL Monocytes # (0-1.0) k/uL Eosinophils # (0-0.7) k/uL Basophils # (0-0.2) k/uL PT 9.7 (9.0-12.0) sec INR 1.0 (<1.2) APTT 25.5 (22.0-30.0) sec Sodium (137-145) mmol/L Potassium (3.5-5.1) mmol/L Chloride (98-107) mmol/L Carbon Dioxide (22-30) mmol/L Anion Gap mmol/L BUN (7-17) mg/dL Creatinine (0.52-1.04) mg/dL Est GFR (CKD-EPI)AfAm (>60 ml/min/1.73 sqM) Est GFR (CKD-EPI)NonAf (>60 ml/min/1.73 sqM) Glucose (74-99) mg/dL Calcium (8.4-10.2) mg/dL Total Bilirubin (0.2-1.3) mg/dL AST (14-36) U/L ALT (9-52) U/L Alkaline Phosphatase (38-126) U/L Total Protein (6.3-8.2) g/dL Albumin (3.5-5.0) g/dL Urine Color Yellow Urine Appearance Turbid H (Clear) Urine pH 6.5 (5.0-8.0) Ur Specific [place] 1.016 (1.001-1.035) Urine Protein 1+ H (Negative) Urine Glucose (UA) Negative (Negative) Urine Ketones Negative (Negative) Urine Blood Large H (Negative) Urine Nitrite Positive H (Negative) Urine Bilirubin Negative (Negative) Urine Urobilinogen <2.0 (<2.0) mg/dL Ur Leukocyte Esterase Large H (Negative) Urine RBC >182 H (0-5) /hpf Urine WBC >182 H (0-5) /hpf Urine WBC Clumps Many H (None) /hpf Ur Squamous Epith Cells 8 H (0-4) /hpf Urine Bacteria Occasional H (None) /hpf Urine Mucus Rare H (None) /hpf Urine HCG, Qual (Not Detectd) Disposition Clinical Impression: Pyelonephritis, Failure of outpatient treatment Disposition: ADMITTED IP TO THIS HOSP Condition: Stable Is patient prescribed a controlled substance at d/c from ED?: No Referrals: Melchor Stevens MD [Primary Care Provider] - 1-2 days
[2017-10-26 10:46] LABS: Basophils % (A) 0 %; Eosinophils # (A) 0.2 k/uL (0-0.7); Eosinophils % (A) 2 %; HCT 40.5 % (34.0-46.0); HGB 13.5 gm/dL (11.4-16.0); Lymphocytes # (A) 2.1 k/uL (1.0-4.8); Lymphocytes % (A) 28 %; MCH 26.4 pg (25.0-35.0); MCHC 33.5 g/dL (31.0-37.0); MCV 78.9 fL (80.0-100.0); Monocytes # (A) 0.3 k/uL (0-1.0); Monocytes % (A) 4 %; Neutrophils # (A) 4.9 k/uL (1.3-7.7); Neutrophils % (A) 65 %; Platelet Count 326 k/uL (150-450); RBC 5.13 m/uL (3.80-5.40); RDW 13.9 % (11.5-15.5); WBC 7.6 k/uL (3.8-10.6)
[2017-10-26 10:54] LABS: Partial Thromboplastin Time 25.5 sec (22.0-30.0); Prothrombin Time 9.7 sec (9.0-12.0)
[2017-10-26 10:57] LABS: Appearance,Urine Turbid (Clear); Bacteria,Urine Occasional /hpf; Bilirubin,Urine Negative (Negative); Blood,Urine Large (Negative); Color,Urine Yellow; Glucose,Urine (UA) Negative (Negative); Ketones,Urine Negative (Negative); Leukocyte Esterase,Urine Large (Negative); Mucus,Urine Rare /hpf; Nitrite,Urine Positive (Negative); PH, Urine 6.5 (5.0-8.0); Protein,Urine 1+ (Negative); RBC,Urine >182 /hpf (0-5); Specific Gravity,Urine 1.016 (1.001-1.035); Squamous Epithelial Cell,Urine 8 /hpf (0-4); Urobilinogen,Urine <2.0 mg/dL (<2.0); WBC,Urine >182 /hpf (0-5)
[2017-10-26 11:05] LABS: ALT 29 U/L (9-52); AST 26 U/L (14-36); Albumin 4.5 g/dL (3.5-5.0); Alkaline Phosphatase 116 U/L (38-126); Anion Gap 15 mmol/L; Blood Urea Nitrogen 13 mg/dL (7-17); Calcium 9.8 mg/dL (8.4-10.2); Carbon Dioxide 22 mmol/L (22-30); Chloride 103 mmol/L (98-107); Glucose 162 mg/dL (74-99); Potassium 4.6 mmol/L (3.5-5.1); Sodium 140 mmol/L (137-145); Total Bilirubin 0.4 mg/dL (0.2-1.3); Total Protein 7.2 g/dL (6.3-8.2)
[2017-10-26] MEDS ORDERED: cefTRIAXone 2,000 MG in SODIUM CHLORIDE 0.9% 100 ML IVPB STA (11:17)
[2017-10-26] MEDS ORDERED: cefTRIAXone IN SWFI 2,000 MG/20 ML SYRINGE IVP STA (11:18)
--- NOTE | 2017-10-26 12:02 | US ---
EXAMINATION TYPE: US kidneys/renal and bladder DATE OF EXAM: 10/26/2017 COMPARISON: CT abdomen 11/11/2017 ultrasound 08/19/2017 CLINICAL HISTORY: Pain. Left flank pain, history of kidney stones EXAM MEASUREMENTS: Right Kidney: 11.8 x 5.7 x 5.9 cm Left Kidney: 11.3 x 4.4 x 4.3 cm Right Kidney: no evidence of hydronephrosis Left Kidney: dense echogenic area mid = 0.5cm, prominent collecting system Bladder: not fully distended Bilateral Jets seen: yes IMPRESSION: 1. 5 mm left renal stone with mild left hydronephrosis 2. Right renal stone noted by recent CT scan not identified by ultrasound
--- NOTE | 2017-10-26 12:24 | XR ---
EXAMINATION TYPE: XR KUB DATE OF EXAM: 10/26/2017 COMPARISON: 10/23/2017 HISTORY: Left flank pain TECHNIQUE: One view abdominal series FINDINGS: The osseous structures are intact. The bowel gas pattern is nonspecific. Lung bases are clear. Curv ature the spine noted with postsurgical change involving the right upper quadrant. Calcifications the pelvis are likely vascular. IMPRESSION: 1. Nonspecific abdomen. Tiny punctate calcifications noted by recent CT scan are not as well-seen by standard x-ray.
[2017-10-26] MEDS ORDERED: HYDROcodone/APAP 5-325MG 1 EACH TAB PO PRN (12:53)
[2017-10-26] MEDS ORDERED: ACETAMINOPHEN TAB 325 MG TAB PO PRN (12:53)
[2017-10-26] MEDS ORDERED: ONDANSETRON 4 MG/2 ML VIAL IVP PRN (12:53)
[2017-10-26] MEDS ORDERED: SODIUM CHLORIDE 0.9% 1,000 ML IV ONE (12:53)
[2017-10-26] MEDS ORDERED: NALOXONE 0.4 MG/ML 1 ML VIAL IV PRN (12:53)
[2017-10-26] MEDS: MORPHINE SULFATE 4 MG/ML SYRINGE IV PRN ×3 (13:11→22:52)
[2017-10-26] MEDS ORDERED: SUMAtriptan SUCCINATE 50 MG TAB PO PRN (17:28)
[2017-10-26 17:32] LABS: Glucose,Whole Blood 223 mg/dL (75-99)
[2017-10-26] MEDS: INSULIN ASPART 100 UNIT/ML 1 ML 10 ML VIAL SQ SCH ×2 (17:49→17:50)
[2017-10-26] MEDS: metFORMIN 500 MG TAB PO SCH (17:55)
[2017-10-26] MEDS ORDERED: diphenhydrAMINE 25 MG CAP PO STA (18:19)
[2017-10-26 20:42] LABS: Glucose,Whole Blood 135 mg/dL (75-99)
[2017-10-26] MEDS: MELOXICAM 7.5 MG TAB PO SCH (20:59)
[2017-10-26] MEDS: LISINOPRIL 10 MG TAB PO SCH (20:59)
[2017-10-26] MEDS: IMIPRAMINE 25 MG TAB PO SCH (20:59)
[2017-10-26] MEDS: OLANZapine 10 MG TAB PO SCH (20:59)
[2017-10-26] MEDS: hydrOXYzine HCL 25 MG TAB PO SCH (20:59)
[2017-10-26] MEDS: LORATADINE 10 MG TAB PO SCH (21:00)
[2017-10-26] MEDS: DIVALPROEX ER 500 MG TAB.ER.24H PO SCH (21:00)
[2017-10-26] MEDS: INSULIN DETEMIR 100 UNIT/ML 10 ML VIAL SQ SCH (21:00)
[2017-10-26] MEDS: oxyCODONE-APAP 10-325MG 1 EACH TAB PO PRN (21:04)
[2017-10-27] MEDS: MORPHINE SULFATE 4 MG/ML SYRINGE IV PRN ×5 (05:20→23:52)
[2017-10-27 07:13] LABS: Glucose,Whole Blood 160 mg/dL (75-99)
[2017-10-27] MEDS: PANTOPRAZOLE 40 MG TABLET PO SCH (07:47)
[2017-10-27] MEDS: oxyCODONE-APAP 10-325MG 1 EACH TAB PO PRN ×3 (07:47→21:13)
[2017-10-27] MEDS: OLANZapine 10 MG TAB PO SCH ×2 (07:47→21:13)
[2017-10-27] MEDS: FLUoxetine HCL 20 MG CAP PO SCH (07:47)
[2017-10-27] MEDS: metFORMIN 500 MG TAB PO SCH ×2 (07:47→17:05)
[2017-10-27] MEDS: hydrOXYzine HCL 25 MG TAB PO SCH ×3 (07:47→21:13)
[2017-10-27] MEDS: DIVALPROEX ER 500 MG TAB.ER.24H PO SCH ×2 (07:47→21:13)
[2017-10-27] MEDS: INSULIN ASPART 100 UNIT/ML 1 ML 10 ML VIAL SQ SCH ×7 (07:48→21:14)
[2017-10-27] MEDS: cefTRIAXone IN SWFI 2,000 MG/20 ML SYRINGE IVP SCH (07:48)
[2017-10-27 09:02] LABS: Basophils # (A) 0.1 k/uL (0-0.2); Basophils % (A) 1 %; Eosinophils # (A) 0.2 k/uL (0-0.7); Eosinophils % (A) 3 %; HCT 35.2 % (34.0-46.0); HGB 11.7 gm/dL (11.4-16.0); Lymphocytes # (A) 3.5 k/uL (1.0-4.8); Lymphocytes % (A) 47 %; MCH 27.4 pg (25.0-35.0); MCHC 33.3 g/dL (31.0-37.0); MCV 82.3 fL (80.0-100.0); Mean Platelet Volume 6.5; Monocytes # (A) 0.4 k/uL (0-1.0); Monocytes % (A) 5 %; Neutrophils # (A) 3.2 k/uL (1.3-7.7); Neutrophils % (A) 43 %; Platelet Count 288 k/uL (150-450); RBC 4.28 m/uL (3.80-5.40); WBC 7.4 k/uL (3.8-10.6)
[2017-10-27 09:17] LABS: ALT 33 U/L (9-52); AST 29 U/L (14-36); Albumin 3.6 g/dL (3.5-5.0); Alkaline Phosphatase 86 U/L (38-126); Anion Gap 11 mmol/L; Blood Urea Nitrogen 13 mg/dL (7-17); Calcium 9.2 mg/dL (8.4-10.2); Carbon Dioxide 29 mmol/L (22-30); Chloride 104 mmol/L (98-107); Glucose 136 mg/dL (74-99); Potassium 5.4 mmol/L (3.5-5.1); Sodium 144 mmol/L (137-145); Total Bilirubin 0.2 mg/dL (0.2-1.3); Total Protein 6.1 g/dL (6.3-8.2)
[2017-10-27 12:06] LABS: Glucose,Whole Blood 193 mg/dL (75-99)
--- NOTE | 2017-10-27 16:10 | P.HPIM ---
History of Present Illness H&P Date: 10/26/17 Chief Complaint: Abdominal pain; renal stones Patient's a 42-year-old female presenting to the emergency room today with a chief complaint of possible kidney stone and urinary tract infection. She was seen here in the emergency room just 3 days ago. She was started on ciprofloxacin. She's been taking this a total of 5 doses. States pain is not improving. States had increased nausea vomiting and left flank pain this morning. Patient states symptoms are consistent with kidney stones that she's had in the past. She denies any other complaints or associated symptoms at this time. Patient denies any recent fever, chills, shortness of breath, chest pain, back pain, numbness or tingling, headaches or visual changes, or any other complaints. Review of Systems Constitutional: Reports chills, Reports fatigue, Reports fever, Reports lethargy , Reports poor appetite, Reports sweats Eyes: denies blurred vision, denies diplopia, denies discharge Ears: deny: decreased hearing, ear discharge Ears, nose, mouth and throat: Reports headache, Denies epistaxis Cardiovascular: Denies chest pain, Denies lightheadedness, Denies orthopnea, Denies rapid heart beat, Denies shortness of breath Respiratory: Denies congestion, Denies cough, Denies cough with sputum Gastrointestinal: Reports abdominal pain, Reports nausea, Reports vomiting, Denies diarrhea Genitourinary: Reports dysuria, Reports flank pain Musculoskeletal: Reports low back pain, Reports muscle weakness, Denies leg numbness/tingling, Denies morning stiffness, Denies muscle cramps Integumentary: Reports brittle nails, Denies depigmentation, Denies unusual bruising Neurological: Denies change in mentation, Denies change in speech, Denies confusion, Denies double vision Psychiatric: Reports anxiety, Denies confusion, Denies sadness/tearfulness, Denies suicidal ideation Endocrine: Reports polydipsia, Reports polyuria, Denies cold intolerance, Denies heat intolerance, Denies high blood sugars Hematologic/Lymphatic: Denies easy bruising, Denies lymphadenopathy Past Medical History Past Medical History: Diabetes Mellitus, Eye Disorder, GERD/Reflux, Hypertension , Renal Disease, Syncope Additional Past Medical History / Comment(s): Colitis, hemorrhoids, recurrent nephrolithiasis, polycystic kidney disorder, UTIs, 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 History of Any Multi-Drug Resistant Organisms: None Reported Date of last positivie culture/infection: 05/14/17 MDRO Source:: ESBL URINE Past Surgical History: Bladder Surgery, Section, Cholecystectomy, Hysterectomy, Orthopedic Surgery, Tubal Ligation Additional Past Surgical History / Comment(s): R ovarian cystectomy, laparoscopic surgery for L ovary that had attached to the bowel, D&C, numerous lithotripsies, nephroscopies, cystoscopies and stents to ureters-none in place at this time, L robotic pyeloplasty with post op infection around kidney which then required a picc line/later removed (pt states was not MRSA), L rotator cuff repair, L wrist tendon surgery, colonoscopy Past Anesthesia/Blood Transfusion Reactions: Family History of Problems w/ Anesthesia Additional Past Anesthesia/Blood Transfusion Reaction / Comment(s): dad-hard time waking up due to enzyme problems in liver Smoking Status: Current every day smoker - Past Family History Brother(s) Family Medical History: Cancer Additional Family Medical History / Comment(s): testicular Father Family Medical History: Coronary Artery Disease (CAD), CVA/TIA, Diabetes Mellitus, Renal Disease Additional Family Medical History / Comment(s): GLAUCOMA,NEUROPATHY HAD TRIPLE CABG, at 56yrs from renal disease. Mother Family Medical History: Hyperlipidemia Additional Family Medical History / Comment(s): DDD, HAD 3 vessel CABG AGE 54. Medications and Allergies Home Medications Medication Instructions Recorded Confirmed Type Insulin Glargine,Hum.rec.anlog 15 unit SQ HS 07/24/17 10/26/17 History [Basaglar Kwikpen U-100] Insulin Glulisine [Apidra] 5 unit SQ AC-TID 07/29/17 10/26/17 History Imipramine [Tofranil] 25 mg PO HS #30 tab 08/02/17 10/26/17 Rx Lisinopril [Zestril] 10 mg PO HS tab 08/02/17 10/26/17 Rx SUMAtriptan SUCCINATE [Imitrex] 100 mg PO DAILY PRN tab 08/02/17 10/26/17 Rx metFORMIN HCL [Glucophage] 1,000 mg PO BID-W/MEALS tab 08/02/17 10/26/17 Rx Loratadine [Claritin] 10 mg PO HS 08/19/17 10/26/17 History OLANZapine [ZyPREXA] 10 mg PO BID@0900,2200 08/19/17 10/26/17 History FLUoxetine HCL [PROzac] 40 mg PO DAILY 08/29/17 10/26/17 History Meloxicam 7.5 mg PO HS 08/29/17 10/26/17 History Omeprazole 20 mg PO DAILY 08/29/17 10/26/17 History hydrOXYzine HCL [Atarax] 25 mg PO TID 08/29/17 10/26/17 History oxyCODONE-APAP 10-325MG [Percocet 1 tab PO QID PRN 08/29/17 10/26/17 History 10-325 mg] Ciprofloxacin HCl [Cipro] 500 mg PO Q12HR #14 tablet 10/23/17 10/26/17 Rx Divalproex ER [Depakote ER] 500 mg PO BID 10/23/17 10/26/17 History Allergies Allergy/AdvReac Type Severity Reaction Status Date / Time bupropion HCl Allergy Rash/Hives Verified 10/26/17 10:25 [From Wellbutrin] fentanyl Allergy Swelling Verified 10/26/17 10:25 hydrocodone Allergy Itching Verified 10/26/17 19:21 Iodinated Contrast- Oral and Allergy Anaphylaxis Verified 10/26/17 10:25 IV Dye [Iodinated Contrast Media - IV Dye] orange juice [[place]] Allergy Rash/Hives Verified 10/26/17 10:25 Sulfa (Sulfonamide Allergy Rash/Hives Verified 10/26/17 10:25 Antibiotics) Penicillins AdvReac Nausea & Verified 10/26/17 10:25 Vomiting Physical Exam Vitals: Vital Signs Temp Pulse Pulse Resp BP BP Pulse Ox 10/26/17 16:00 17 10/26/17 14:17 98.8 F 91 17 124/86 97 10/26/17 13:44 97.6 F 96 18 114/75 99 10/26/17 12:33 98 F 89 18 115/57 99 10/26/17 10:08 98.5 F 110 H 16 142/86 100 Intake and Output 10/26/17 10/26/17 10/26/17 06:59 14:59 22:59 Other: Weight 81.647 kg - Constitutional General appearance: Present: average body habitus, cooperative, no acute distress - EENT Eyes: Present: anicteric sclerae, EOMI, PERRLA, normal appearance ENT: Present: hearing grossly normal, normal oropharynx Ears: bilateral: normal - Neck Neck: Present: normal ROM. Absent: lymphadenopathy, rigidity, thyromegaly Carotids: negative: bruit present Thyroid: bilateral: normal size, negative: enlarged, nodule - Respiratory Respiratory: bilateral: CTA, negative: rales, rhonchi, wheezing - Cardiovascular Rhythm: regular Heart sounds: normal: S1, S2 Abnormal Heart Sounds: Absent: systolic murmur, diastolic murmur - Gastrointestinal General gastrointestinal: Present: normal bowel sounds, soft. Absent: distended , organomegaly, tenderness - Genitourinary Genitourinary Comment(s): deferred - Integumentary Integumentary: Present: normal turgor. Absent: jaundiced, rash, ulcer - Neurologic Neurologic: Present: CNII-XII intact. Absent: focal deficits - Musculoskeletal Musculoskeletal: Present: gait normal, strength equal bilaterally - Psychiatric Psychiatric: Present: A&O x's 3, appropriate affect, intact judgment & insight Results CBC & Chem 7: 10/27/17 08:03 10/27/17 08:03 Labs: Abnormal Lab Results - Last 24 Hours (Table) 10/26/17 10/26/17 10/26/17 Range/Units 10:30 10:30 10:30 MCV 78.9 L (80.0-100.0) fL Glucose 162 H (74-99) mg/dL POC Glucose (mg/dL) (75-99) mg/dL Urine Appearance Turbid H (Clear) Urine Protein 1+ H (Negative) Urine Blood Large H (Negative) Urine Nitrite Positive H (Negative) Ur Leukocyte Esterase Large H (Negative) Urine RBC >182 H (0-5) /hpf Urine WBC >182 H (0-5) /hpf Urine WBC Clumps Many H (None) /hpf Ur Squamous Epith Cells 8 H (0-4) /hpf Urine Bacteria Occasional H (None) /hpf Urine Mucus Rare H (None) /hpf 10/26/17 Range/Units 17:25 MCV (80.0-100.0) fL Glucose (74-99) mg/dL POC Glucose (mg/dL) 223 H (75-99) mg/dL Urine Appearance (Clear) Urine Protein (Negative) Urine Blood (Negative) Urine Nitrite (Negative) Ur Leukocyte Esterase (Negative) Urine RBC (0-5) /hpf Urine WBC (0-5) /hpf Urine WBC Clumps (None) /hpf Ur Squamous Epith Cells (0-4) /hpf Urine Bacteria (None) /hpf Urine Mucus (None) /hpf Microbiology - Last 24 Hours (Table) 10/26/17 10:30 Urine Culture - Preliminary Urine,Voided Thrombosis Risk Factor Assmnt - Choose All That Apply Any of the Below Risk Factors Present?: Yes Each Factor Represents 1 point: Age 41-60 years, Obesity (BMI >25) Other Risk Factors: No Other congenital or acquired thrombophilia - If yes, enter type in comment: No Thrombosis Risk Factor Assessment Total Risk Factor Score: 2 Thrombosis Risk Factor Assessment Level: Low Risk Assessment and Plan Assessment: 1. Acute pyelonephritis; failing outpatient treatment - Patient was treated with oral Cipro for over 3 days of therapy - We will start patient on IV Rocephin; monitor blood culture and urine culture - Final antibiotic adjustment based upon the culture report - We will monitor strict GENARO's, electrolytes, and renal function 2. Nephrolithiasis without obstruction - Patient has history of polycystic kidney disease and recurrent nephrolithiasis - No obstruction/hydronephrosis present on ultrasound done in ED - We will monitor closely and consult urology if any signs of urinary obstruction 3. Hyperglycemia without acidosis; diabetes mellitus - Patient is on metformin and Levemir at home - We will start with home dose of metformin in the room air - Monitor Accu-Cheks closely with insulin sliding scale 4. Hypertension - Blood pressure is fairly controlled on home dose of lisinopril - We will continue to monitor blood pressure closely and adjust medications if needed 5. DVT prophylaxis; SCDs CODE STATUS; full code Time with Patient: Greater than 30
--- NOTE | 2017-10-27 16:16 | P.PN ---
Subjective Progress Note Date: 10/27/17 Principal diagnosis: Acute pyelonephritis Recurrent nephrolithiasis Patient's a 42-year-old female presenting to the emergency room today with a chief complaint of possible kidney stone and urinary tract infection. She was seen here in the emergency room just 3 days ago. She was started on ciprofloxacin. She's been taking this a total of 5 doses. States pain is not improving. States had increased nausea vomiting and left flank pain this morning. Patient states symptoms are consistent with kidney stones that she's had in the past. She denies any other complaints or associated symptoms at this time. Patient denies any recent fever, chills, shortness of breath, chest pain, back pain, numbness or tingling, headaches or visual changes, or any other complaints. Objective - Vital Signs Vital signs: Vital Signs Temp 98.0 F 10/27/17 14:08 Pulse 90 10/27/17 14:08 Resp 16 10/27/17 14:08 BP 112/74 10/27/17 14:08 Pulse Ox 98 10/27/17 14:08 Intake & Output 10/26/17 10/27/17 10/27/17 18:59 06:59 18:59 Weight 81.647 kg Other: Voiding Method Toilet Toilet # Voids 2 2 # Bowel Movements 0 - Exam - Constitutional General appearance: Present: average body habitus, cooperative, no acute distress - EENT Eyes: Present: anicteric sclerae, EOMI, PERRLA, normal appearance ENT: Present: hearing grossly normal, normal oropharynx Ears: bilateral: normal - Neck Neck: Present: normal ROM. Absent: lymphadenopathy, rigidity, thyromegaly Carotids: negative: bruit present Thyroid: bilateral: normal size, negative: enlarged, nodule - Respiratory Respiratory: bilateral: CTA, negative: rales, rhonchi, wheezing - Cardiovascular Rhythm: regular Heart sounds: normal: S1, S2 Abnormal Heart Sounds: Absent: systolic murmur, diastolic murmur - Gastrointestinal General gastrointestinal: Present: normal bowel sounds, soft. Absent: distended , organomegaly, tenderness - Genitourinary Genitourinary Comment(s): deferred - Integumentary Integumentary: Present: normal turgor. Absent: jaundiced, rash, ulcer - Neurologic Neurologic: Present: CNII-XII intact. Absent: focal deficits - Musculoskeletal Musculoskeletal: Present: gait normal, strength equal bilaterally - Psychiatric Psychiatric: Present: A&O x's 3, appropriate affect, intact judgment & insight - Labs CBC & Chem 7: 10/27/17 08:03 10/27/17 08:03 Labs: Abnormal Lab Results - Last 24 Hours (Table) 10/26/17 10/26/17 10/27/17 Range/Units 17:25 20:41 07:05 Potassium (3.5-5.1) mmol/L Glucose (74-99) mg/dL POC Glucose (mg/dL) 223 H 135 H 160 H (75-99) mg/dL Total Protein (6.3-8.2) g/dL 10/27/17 10/27/17 Range/Units 08:03 12:03 Potassium 5.4 H (3.5-5.1) mmol/L Glucose 136 H (74-99) mg/dL POC Glucose (mg/dL) 193 H (75-99) mg/dL Total Protein 6.1 L (6.3-8.2) g/dL Microbiology - Last 24 Hours (Table) 10/26/17 10:30 Urine Culture - Preliminary Urine,Voided Gram Neg Bacilli Assessment and Plan Assessment: 1. Acute pyelonephritis; failing outpatient treatment - Patient was treated with oral Cipro for over 3 days of therapy - We will start patient on IV Rocephin; monitor blood culture and urine culture - Final antibiotic adjustment based upon the culture report - We will monitor strict GENRAO's, electrolytes, and renal function 2. Nephrolithiasis without obstruction - Patient has history of polycystic kidney disease and recurrent nephrolithiasis - No obstruction/hydronephrosis present on ultrasound done in ED - We will monitor closely and consult urology if any signs of urinary obstruction 3. Hyperglycemia without acidosis; diabetes mellitus - Patient is on metformin and Levemir at home - We will start with home dose of metformin in the room air - Monitor Accu-Cheks closely with insulin sliding scale 4. Hypertension - Blood pressure is fairly controlled on home dose of lisinopril - We will continue to monitor blood pressure closely and adjust medications if needed 5. DVT prophylaxis; SCDs CODE STATUS; full code Time with Patient: Greater than 30
[2017-10-27 17:09] LABS: Glucose,Whole Blood 133 mg/dL (75-99)
[2017-10-27 17:58] LABS: Hemoglobin A1C 7.1 % (4.0-6.0)
[2017-10-27 21:10] LABS: Glucose,Whole Blood 145 mg/dL (75-99)
[2017-10-27] MEDS: MELOXICAM 7.5 MG TAB PO SCH (21:12)
[2017-10-27] MEDS: LORATADINE 10 MG TAB PO SCH (21:13)
[2017-10-27] MEDS: INSULIN DETEMIR 100 UNIT/ML 10 ML VIAL SQ SCH (21:13)
[2017-10-27] MEDS: LISINOPRIL 10 MG TAB PO SCH (21:13)
[2017-10-27] MEDS: IMIPRAMINE 25 MG TAB PO SCH (21:13)
[2017-10-28] MEDS: oxyCODONE-APAP 10-325MG 1 EACH TAB PO PRN ×3 (06:15→20:00)
[2017-10-28 07:18] LABS: Glucose,Whole Blood 136 mg/dL (75-99)
[2017-10-28] MEDS: MORPHINE SULFATE 4 MG/ML SYRINGE IV PRN ×3 (07:54→21:38)
[2017-10-28] MEDS: cefTRIAXone IN SWFI 2,000 MG/20 ML SYRINGE IVP SCH ×2 (07:55→07:56)
[2017-10-28] MEDS: INSULIN ASPART 100 UNIT/ML 1 ML 10 ML VIAL SQ SCH ×7 (07:55→21:39)
[2017-10-28] MEDS: PANTOPRAZOLE 40 MG TABLET PO SCH (07:56)
[2017-10-28] MEDS: FLUoxetine HCL 20 MG CAP PO SCH (07:56)
[2017-10-28] MEDS: hydrOXYzine HCL 25 MG TAB PO SCH ×3 (07:56→20:03)
[2017-10-28] MEDS: metFORMIN 500 MG TAB PO SCH ×2 (07:56→17:41)
[2017-10-28] MEDS: DIVALPROEX ER 500 MG TAB.ER.24H PO SCH ×2 (07:56→20:03)
[2017-10-28] MEDS: OLANZapine 10 MG TAB PO SCH ×2 (07:56→20:03)
[2017-10-28 08:52] LABS: Basophils % (A) 1 %; Eosinophils # (A) 0.2 k/uL (0-0.7); Eosinophils % (A) 3 %; HCT 35.2 % (34.0-46.0); HGB 11.8 gm/dL (11.4-16.0); Lymphocytes # (A) 3.2 k/uL (1.0-4.8); Lymphocytes % (A) 45 %; MCH 27.3 pg (25.0-35.0); MCHC 33.5 g/dL (31.0-37.0); MCV 81.7 fL (80.0-100.0); Mean Platelet Volume 6.6; Monocytes # (A) 0.4 k/uL (0-1.0); Monocytes % (A) 5 %; Neutrophils # (A) 3.2 k/uL (1.3-7.7); Neutrophils % (A) 45 %; Platelet Count 308 k/uL (150-450); RBC 4.31 m/uL (3.80-5.40); RDW 13.8 % (11.5-15.5); WBC 7.2 k/uL (3.8-10.6)
[2017-10-28 09:02] LABS: Anion Gap 14 mmol/L; Blood Urea Nitrogen 10 mg/dL (7-17); Calcium 9.1 mg/dL (8.4-10.2); Carbon Dioxide 26 mmol/L (22-30); Chloride 103 mmol/L (98-107); Glucose 155 mg/dL (74-99); Potassium 4.6 mmol/L (3.5-5.1); Sodium 143 mmol/L (137-145)
[2017-10-28 12:23] LABS: Glucose,Whole Blood 143 mg/dL (75-99)
[2017-10-28 17:12] LABS: Glucose,Whole Blood 159 mg/dL (75-99)
--- NOTE | 2017-10-28 19:38 | P.PN ---
Subjective Progress Note Date: 10/28/17 Principal diagnosis: Acute pyelonephritis Recurrent nephrolithiasis Patient's a 42-year-old female presenting to the emergency room today with a chief complaint of possible kidney stone and urinary tract infection. She was seen here in the emergency room just 3 days ago. She was started on ciprofloxacin. She's been taking this a total of 5 doses. States pain is not improving. States had increased nausea vomiting and left flank pain this morning. Patient states symptoms are consistent with kidney stones that she's had in the past. She denies any other complaints or associated symptoms at this time. Patient denies any recent fever, chills, shortness of breath, chest pain, back pain, numbness or tingling, headaches or visual changes, or any other complaints. 10/28/2017 Patient claims that she feels very weak and is continuously having severe back pain; does report chills; we did discuss urine microbiology growing E. coli sensitive to Cipro; patient was treated with oral Cipro as outpatient and continued to worsen at which time she decided to come to ED; given field course of treatment with Cipro we will continue with IV Rocephin for another 24-48 hours; patient understands and is agreeable Objective - Vital Signs Vital signs: Vital Signs Temp 98.2 F 10/28/17 15:05 Pulse 96 10/28/17 15:05 Resp 16 10/28/17 15:05 BP 106/69 10/28/17 15:05 Pulse Ox 97 10/28/17 15:05 Intake & Output 10/28/17 10/28/17 10/29/17 06:59 18:59 06:59 Intake Total 900 Balance 900 Intake: Oral 900 Other: Voiding Method Toilet Toilet # Voids 1 1 - Exam - Constitutional General appearance: Present: average body habitus, cooperative, no acute distress - EENT Eyes: Present: anicteric sclerae, EOMI, PERRLA, normal appearance ENT: Present: hearing grossly normal, normal oropharynx Ears: bilateral: normal - Neck Neck: Present: normal ROM. Absent: lymphadenopathy, rigidity, thyromegaly Carotids: negative: bruit present Thyroid: bilateral: normal size, negative: enlarged, nodule - Respiratory Respiratory: bilateral: CTA, negative: rales, rhonchi, wheezing - Cardiovascular Rhythm: regular Heart sounds: normal: S1, S2 Abnormal Heart Sounds: Absent: systolic murmur, diastolic murmur - Gastrointestinal General gastrointestinal: Present: normal bowel sounds, soft. Absent: distended , organomegaly, tenderness - Genitourinary Genitourinary Comment(s): deferred - Integumentary Integumentary: Present: normal turgor. Absent: jaundiced, rash, ulcer - Neurologic Neurologic: Present: CNII-XII intact. Absent: focal deficits - Musculoskeletal Musculoskeletal: Present: gait normal, strength equal bilaterally - Psychiatric Psychiatric: Present: A&O x's 3, appropriate affect, intact judgment & insight - Labs CBC & Chem 7: 10/28/17 08:30 10/28/17 08:30 Labs: Abnormal Lab Results - Last 24 Hours (Table) 10/27/17 10/27/17 10/28/17 Range/Units 08:03 20:53 07:12 Glucose (74-99) mg/dL POC Glucose (mg/dL) 145 H 136 H (75-99) mg/dL Hemoglobin A1c 7.1 H (4.0-6.0) % 10/28/17 10/28/17 10/28/17 Range/Units 08:30 12:22 17:10 Glucose 155 H (74-99) mg/dL POC Glucose (mg/dL) 143 H 159 H (75-99) mg/dL Hemoglobin A1c (4.0-6.0) % Microbiology - Last 24 Hours (Table) 10/26/17 10:30 Urine Culture - Final Urine,Voided Escherichia coli Assessment and Plan Assessment: 1. Acute pyelonephritis; failing outpatient treatment Urine culture is growing E. coli which is sensitive to majority of antibiotics including Cipro; patient had failed outpatient treatment with Cipro and was admitted with possible pyelonephritis; we will continue with IV Rocephin therapy for at least another 24-48 hours at which time patient will be transitioned to oral antibiotics. Total duration of 14 days of antibiotics - Patient was treated with oral Cipro for over 3 days of therapy - We will start patient on IV Rocephin; monitor blood culture and urine culture - Final antibiotic adjustment based upon the culture report - We will monitor strict GENARO's, electrolytes, and renal function 2. Nephrolithiasis without obstruction - Patient has history of polycystic kidney disease and recurrent nephrolithiasis - No obstruction/hydronephrosis present on ultrasound done in ED - We will monitor closely and consult urology if any signs of urinary obstruction 3. Hyperglycemia without acidosis; diabetes mellitus - Patient is on metformin and Levemir at home - We will start with home dose of metformin in the room air - Monitor Accu-Cheks closely with insulin sliding scale 4. Hypertension - Blood pressure is fairly controlled on home dose of lisinopril - We will continue to monitor blood pressure closely and adjust medications if needed 5. DVT prophylaxis; SCDs CODE STATUS; full code
[2017-10-28] MEDS: MELOXICAM 7.5 MG TAB PO SCH (20:02)
[2017-10-28] MEDS: LISINOPRIL 10 MG TAB PO SCH (20:02)
[2017-10-28] MEDS: LORATADINE 10 MG TAB PO SCH (20:02)
[2017-10-28] MEDS: IMIPRAMINE 25 MG TAB PO SCH (20:02)
[2017-10-28 21:03] LABS: Glucose,Whole Blood 194 mg/dL (75-99)
[2017-10-28] MEDS: INSULIN DETEMIR 100 UNIT/ML 10 ML VIAL SQ SCH (21:39)
[2017-10-29] MEDS: MORPHINE SULFATE 4 MG/ML SYRINGE IV PRN ×4 (01:10→20:19)
[2017-10-29] MEDS: oxyCODONE-APAP 10-325MG 1 EACH TAB PO PRN ×4 (03:28→22:36)
[2017-10-29] MEDS: LORazepam 2 MG/ML INJ IV PRN (03:31)
[2017-10-29] MEDS ORDERED: HYDROmorphone 2 MG TAB PO STA (05:30)
[2017-10-29 07:35] LABS: Glucose,Whole Blood 192 mg/dL (75-99)
[2017-10-29] MEDS: FLUoxetine HCL 20 MG CAP PO SCH (07:52)
[2017-10-29] MEDS: metFORMIN 500 MG TAB PO SCH ×2 (07:52→17:53)
[2017-10-29] MEDS: OLANZapine 10 MG TAB PO SCH ×2 (07:52→20:21)
[2017-10-29] MEDS: PANTOPRAZOLE 40 MG TABLET PO SCH (07:52)
[2017-10-29] MEDS: DIVALPROEX ER 500 MG TAB.ER.24H PO SCH ×2 (07:52→20:22)
[2017-10-29] MEDS: hydrOXYzine HCL 25 MG TAB PO SCH ×3 (07:52→20:21)
[2017-10-29] MEDS: INSULIN ASPART 100 UNIT/ML 1 ML 10 ML VIAL SQ SCH ×7 (07:53→21:09)
[2017-10-29 12:40] LABS: Glucose,Whole Blood 172 mg/dL (75-99)
--- NOTE | 2017-10-29 14:29 | P.PN ---
Subjective this is the first day i am taking care of the pt SHISHMAREF IRA: Patient's a 42-year-old female presenting to the emergency room with a chief complaint of possible kidney stone and urinary tract infection. She was seen here in the emergency room just 3 days ago. She was started on ciprofloxacin. She's been taking this a total of 5 doses. States pain is not improving. States had increased nausea vomiting and left flank pain this morning. Patient states symptoms are consistent with kidney stones that she's had in the past. She denies any other complaints or associated symptoms at this time. Patient denies any recent fever, chills, shortness of breath, chest pain, back pain, numbness or tingling, headaches or visual changes, or any other complaints. subjective pt is seen and examined by me at bed side no new complaint No CP/SOB, no change in urine bowel habits, no fever pt told me she had hysterectomy she still complains from left groin pain and post void discomfort Objective - Vital Signs Vital signs: Vital Signs Temp 98.7 F 10/29/17 06:00 Pulse 112 H 10/29/17 06:00 Resp 16 10/29/17 06:00 BP 111/78 10/29/17 06:00 Pulse Ox 96 10/29/17 06:00 Intake & Output 10/28/17 10/29/17 10/29/17 18:59 06:59 18:59 Other: Voiding Method Toilet Toilet Toilet # Voids 1 2 - Exam Constitutional: No acute distress, conversant, pleasant Eyes: Anicteric sclerae, moist conjunctiva, no lid-lag PERRLA ENMT: NC/AT Oropharynx clear, no erythema, exudates Neck: Supple, FROM, no masses, or JVD No carotid bruits No thyromegaly Lungs: Clear to auscultation Clear to percussion Normal respiratory effort, no accessory muscle use Cardiovascular: Heart regular in rate and rhythm, No murmurs, gallops, or rubs No peripheral edema Abdominal: Soft Nontender, no guarding, rebound or rigidity Abdomen moving with respiration Normoactive bowel sounds No hepatomegaly, No splenomegaly No palpable mass No abdominal wall hernia noted Skin: Normal temperature, tone, texture, turgor No induration No subcutaneous nodules No rash, lesions No ulcers Extremities: No digital cyanosis No clubbing Pedal pulses intact and symmetrical Radial pulses intact and symmetrical Normal gait and station No calf tenderness Psychiatric: Alert and oriented to person, place and time Appropriate affect Intact judgement Neuro: Muscles Strength 5/5 in all 4 extremities Sensation to light touch grossly present throughout Cranial nerves II-XII grossly intact No focal sensory deficits - Labs CBC & Chem 7: 10/28/17 08:30 10/28/17 08:30 Labs: Abnormal Lab Results - Last 24 Hours (Table) 10/28/17 10/28/17 10/29/17 Range/Units 17:10 21:01 07:23 POC Glucose (mg/dL) 159 H 194 H 192 H (75-99) mg/dL 10/29/17 Range/Units 12:27 POC Glucose (mg/dL) 172 H (75-99) mg/dL Assessment and Plan Plan: -Acute pyelonephritis, patient feels Cipro as an outpatient, currently on Rocephin, culture is growing E. coli which is sensitive to many antibiotics -Left nephrolithiasis, and polycystic kidney disease, patient ultrasound showed left kidney stone 5 mm , and mild left hydronephrosis, repeat US -DM, she is on metformin and Levemir at home plus ISS DVT prophylaxis, SCDs GI prophylaxis Protonix
[2017-10-29 17:12] LABS: Glucose,Whole Blood 149 mg/dL (75-99)
--- NOTE | 2017-10-29 20:06 | US ---
EXAMINATION TYPE: US kidneys/renal and bladder DATE OF EXAM: 10/29/2017 COMPARISON: US/CT CLINICAL HISTORY: f/u of her left kid stone,mild Hydronephrosis. EXAM MEASUREMENTS: Right Kidney: 12.4 x 5.1 x 4.7 cm Left Kidney: 11.8 x 6.2 x 4.2 cm Right Kidney: No hydronephrosis or masses seen Left Kidney: probable kidney stone measuring 0.4 x 0.3 x 0.3cm, mild hydro Bladder: wnl Bilateral Jets seen: Yes IMPRESSION: There is evidence for small left renal calculus. There is some fullness of the left renal collecting system but there are bilateral ureteral jets and I do not see evidence for acute obstruction. No kaya l mass.
[2017-10-29] MEDS: LISINOPRIL 10 MG TAB PO SCH (20:21)
[2017-10-29] MEDS: LORATADINE 10 MG TAB PO SCH (20:21)
[2017-10-29] MEDS: MELOXICAM 7.5 MG TAB PO SCH (20:22)
[2017-10-29] MEDS: IMIPRAMINE 25 MG TAB PO SCH (20:22)
[2017-10-29 20:47] LABS: Glucose,Whole Blood 237 mg/dL (75-99)
[2017-10-29] MEDS: INSULIN DETEMIR 100 UNIT/ML 10 ML VIAL SQ SCH (21:09)
[2017-10-30] MEDS: oxyCODONE-APAP 10-325MG 1 EACH TAB PO PRN ×3 (06:01→17:54)
[2017-10-30] MEDS: MORPHINE SULFATE 4 MG/ML SYRINGE IV PRN (06:02)
[2017-10-30 07:22] LABS: Glucose,Whole Blood 163 mg/dL (75-99)
[2017-10-30] MEDS: DIVALPROEX ER 500 MG TAB.ER.24H PO SCH ×2 (08:59→21:11)
[2017-10-30] MEDS: hydrOXYzine HCL 25 MG TAB PO SCH ×3 (08:59→21:12)
[2017-10-30] MEDS: PANTOPRAZOLE 40 MG TABLET PO SCH (08:59)
[2017-10-30] MEDS: cefTRIAXone IN SWFI 2,000 MG/20 ML SYRINGE IVP SCH (09:00)
[2017-10-30] MEDS: FLUoxetine HCL 20 MG CAP PO SCH (09:00)
[2017-10-30] MEDS: metFORMIN 500 MG TAB PO SCH ×2 (09:00→17:54)
[2017-10-30] MEDS: INSULIN ASPART 100 UNIT/ML 1 ML 10 ML VIAL SQ SCH ×7 (09:00→21:12)
[2017-10-30] MEDS: OLANZapine 10 MG TAB PO SCH ×2 (09:01→21:11)
[2017-10-30] MEDS: MORPHINE ORAL SOLN 10 MG/5 ML CUP PO PRN ×3 (10:37→21:13)
[2017-10-30 12:00] LABS: Glucose,Whole Blood 215 mg/dL (75-99)
--- NOTE | 2017-10-30 16:30 | CONS ---
CONSULTATION DATE OF SERVICE: 10/30/2017 REASON FOR CONSULTATION: Urinary tract infection and antibiotic recommendations. HISTORY OF PRESENT ILLNESS: The patient is a 42-year-old female who started having a problem with burning of urine, urgency and suprapubic discomfort about a week ago, for which the patient was evaluated previously in the ER on 10/23/2017. The patient has been diagnosed with a urinary tract infection. She did have a positive UA. The patient was discharged home on oral Cipro. The patient mentioned that she did have a CT of abdomen and pelvis done on that visit and was told that she did have a non-obstructive renal stone with mild circumferential bladder wall thickening. Over the next few days the patient started having more symptoms and especially was unable to keep anything down; nausea, vomiting, more discomfort despite taking oral antibiotic therapy. Denies any high-grade fever, though did have some chills. With these symptoms, the patient presented back to the [facility] ER on 10/26/2017. Subsequently patient has been admitted to hospital. Patient was started on Rocephin 2 grams daily. On this admission, the patient's white count remains normal. Repeat urine was positive. Urine HCG was negative. I was asked to see the patient for further recommendations regarding antibiotic therapy. The culture done on 10/26/2017 is showing E coli that is a sensitive pathogen, sensitive to Rocephin as well as Cipro that the patient has been on. However, the patient continues to complain of symptoms of pain and discomfort. REVIEW OF SYSTEMS: CONSTITUTIONAL: Positive for weakness but no high-grade fever. EYES: No complaint. ENT: No complaint. RESPIRATORY: No complaint. CARDIOVASCULAR: No complaint. GENITOURINARY: As per HPI. GASTROINTESTINAL: As per HPI. MUSCULOSKELETAL: No complaint. INTEGUMENTARY: No complaint. PSYCHOLOGICAL: No complaint. ENDOCRINE: No complaint. NEUROLOGICAL: No complaint. PAST MEDICAL HISTORY: 1. History of kidney stones and UTI. 2. Diabetes mellitus. 3. Hypertension. 4. Hemorrhoids. 5. Colitis. 6. ADHD. 7. Anxiety, bipolar depression. PAST SURGERY HISTORY: 1. Bladder surgery. 2. . 3. Cholecystectomy. 4. Hysterectomy. 5. Tubal ligation. SOCIAL HISTORY: Current everyday smoker. No drinking or drug use. FAMILY HISTORY: Brother with history of testicular cancer. Father with history of coronary artery disease. Mother with history of hyperlipidemia. ALLERGIES: 1. HYDROCODONE. 2. IODINATED CONTRAST DYE. 3. VENTOLIN. 4. BUPROPION. CURRENT MEDICATIONS: 1. Tylenol. 2. Rocephin 2 grams daily. 3. Depakote. 4. Prozac. 5. Atarax. 6. Tofranil. 7. NovoLog. 8. Levemir. 9. Zestril. 10.Claritin. 11.Ativan. 12.Mobic. 13.Glucophage. 14.Narcan. 15.Zyprexa. 16.Zofran. 17.Percocet. 18.Protonix. 19.Imitrex. PHYSICAL EXAMINATION: Blood pressure 108/74, pulse of 108, temperature 98.1. She is 95% on room air. General description is a middle-aged female lying in bed in no distress. No tachypnea or accessory muscle of respiration use. HEENT examination shows no pallor or scleral icterus. Oral mucosa membrane is moist. No pharyngeal erythema or thrush. NECK: Trachea is central. No thyromegaly. LUNGS: Unlabored breathing. Clear to auscultation anteriorly. No wheeze or crackle. HEART: S1, S2. Regular rate and rhythm. No added sound. ABDOMEN: Soft. No tenderness. No guarding or rigidity. EXTREMITIES: No edema of feet. SKIN EXAMINATION: No rash or mass palpable. Neurologically patient is awake, alert, oriented x3. Mood and affect normal. LABS: Hemoglobin is 11.8, white count 7.2 with a BUN of 10, creatinine 0.71. Electrolytes have been normal. Urine was positive. Urine culture with E coli. Patient did have an abdominal ultrasound completed yesterday which showed evidence for small left renal calculus and some fullness of the left renal collecting system. DIAGNOSTIC IMPRESSION AND PLAN: Patient admitted to hospital with acute nausea, vomiting, urinary discomfort in a patient who has been recently diagnosed with Escherichia coli urinary tract infection with evidence of bilateral kidney stones on the CT. The patient was treated with oral ciprofloxacin, to which the organism is sensitive. However, she did have worsening symptom of nausea and vomiting; could have been related to a small renal stone on the left side that seemed to be passing down, as there was some fullness of the collecting system on the ultrasound that was completed yesterday. PLAN: 1. We will keep the patient on Rocephin 2 grams IV piggyback daily. 2. If the patient's overall nausea and vomiting improves, she may be able to finish therapy with oral ciprofloxacin, to which the organism is sensitive, for another 7 to 10 days. 3. Patient advised to increase her fluid intake. 4. Depending on her clinical response, will adjust her medication further if needed. Thank you for this consultation. Will follow this patient along with you. MMMELISSA / CHASN: [id number] /
[2017-10-30 17:38] LABS: Glucose,Whole Blood 240 mg/dL (75-99)
[2017-10-30 20:34] LABS: Glucose,Whole Blood 185 mg/dL (75-99)
[2017-10-30] MEDS ORDERED: FLUCONAZOLE 100 MG TAB PO ONE (21:00)
[2017-10-30] MEDS: MELOXICAM 7.5 MG TAB PO SCH (21:11)
[2017-10-30] MEDS: LORATADINE 10 MG TAB PO SCH (21:11)
[2017-10-30] MEDS: INSULIN DETEMIR 100 UNIT/ML 10 ML VIAL SQ SCH (21:12)
[2017-10-30] MEDS: LISINOPRIL 10 MG TAB PO SCH (21:12)
[2017-10-30] MEDS: IMIPRAMINE 25 MG TAB PO SCH (21:12)
[2017-10-31] MEDS: oxyCODONE-APAP 10-325MG 1 EACH TAB PO PRN ×2 (00:01→12:46)
[2017-10-31] MEDS: LORazepam 2 MG/ML INJ IV PRN (00:02)
[2017-10-31 00:20] VITALS: RESP 20
[2017-10-31] MEDS: MORPHINE ORAL SOLN 10 MG/5 ML CUP PO PRN ×2 (03:48→07:59)
--- NOTE | 2017-10-31 05:54 | PN ---
PROGRESS NOTE DATE OF SERVICE: 10/30/2017 PRESENTING COMPLAINT: Dysuria. INTERVAL HISTORY: This patient admitted with pyelonephritis, has known kidney stones, having some dysuria though feeling better. Appetite is improved. No nausea. No fever. REVIEW OF SYSTEMS: Review of systems is done for constitutional, cardiovascular, GI, pulmonary; relevant findings as above. CURRENT MEDICATIONS: Current medications are reviewed that include IV ceftriaxone. PHYSICAL EXAMINATION: On examination, temperature 98.1 pulse 108, respirations 16, blood pressure 108/74 pulse ox 95% on room air. GENERAL APPEARANCE: Sitting up, eating lunch, comfortable. EYES: Pupils equal. Conjunctivae normal. HENT: External appearance of nose and ears normal. Oral cavity normal. NECK: JVD not raised. Mass not palpable. Respiratory effort lungs are clear. CARDIOVASCULAR: First and second sounds normal. No edema. ABDOMEN: Left flank mild tenderness. Liver and spleen not palpable. No mass palpable. PSYCHIATRY: Alert and oriented x3. Mood and affect normal. INVESTIGATIONS: Accu-Cheks are noted. ASSESSMENT: 1. Acute left pyelonephritis associated with left nephrolithiasis with cultures growing Escherichia coli. 2. Diabetes mellitus type 2, chronically on insulin. 3. Obesity; body mass index 34. 4. Gastroesophageal reflux disease. 5. Essential hypertension. 6. Chronic brain demyelination syndrome. 7. Polycystic ovarian syndrome. PLAN: Continue current medication and treatment plan. Patient doing much better. Overall the patient's fevers are down. White count is down. Patient is tolerating a diet. Should be able to switch to oral antibiotic tomorrow and possibly discharge. Care was discussed with the patient. She has been ambulating in the hallway. MMODL / IJN: [id number] /
[2017-10-31 07:01] LABS: Glucose,Whole Blood 319 mg/dL (75-99)
[2017-10-31 07:20] VITALS: BP 122/74; PULSE 120; TEMP 97.1
[2017-10-31] MEDS: hydrOXYzine HCL 25 MG TAB PO SCH (07:52)
[2017-10-31] MEDS: OLANZapine 10 MG TAB PO SCH (07:52)
[2017-10-31] MEDS: PANTOPRAZOLE 40 MG TABLET PO SCH (07:53)
[2017-10-31] MEDS: DIVALPROEX ER 500 MG TAB.ER.24H PO SCH (07:53)
[2017-10-31] MEDS: metFORMIN 500 MG TAB PO SCH (07:53)
[2017-10-31] MEDS: cefTRIAXone IN SWFI 2,000 MG/20 ML SYRINGE IVP SCH (07:53)
[2017-10-31] MEDS: INSULIN ASPART 100 UNIT/ML 1 ML 10 ML VIAL SQ SCH ×4 (07:53→12:43)
[2017-10-31] MEDS: FLUoxetine HCL 20 MG CAP PO SCH (07:59)
[2017-10-31] MEDS ORDERED: FLUCONAZOLE 100 MG TAB PO SCH (09:00)
[2017-10-31 12:33] LABS: Glucose,Whole Blood 247 mg/dL (75-99)
--- NOTE | 2017-10-31 13:25 | PN ---
PROGRESS NOTE DATE OF SERVICE: 10/31/2017. REASON FOR FOLLOW UP: E coli urinary tract infection, possible pyelonephritis left side. INTERVAL HISTORY: The patient is afebrile. She is breathing comfortably. Denies having any chest pain or cough. Abdominal pain has improved. No nausea, vomiting or diarrhea. EXAMINATION: Blood pressure is 122/74, pulse of 120, temperature 97.1. She is 95% on room air. General description is a middle-aged female up in the room in no distress. Respiratory system: Unlabored breathing. Clear to auscultation anteriorly. Heart S1, S2. Regular rate and rhythm. Abdomen soft, no tenderness. LABS: No new labs have been obtained today. DIAGNOSTIC IMPRESSION AND PLAN: Patient with an E coli urinary tract infection with possible pyelonephritis, some of the symptoms may have been related to the passage of small renal stone. As the organism is sensitive pathogen, she will finish therapy with oral Cipro 500 mg twice a day for another 7 to 10 days. Continue supportive care. MMODL / IJN: [id number] /
--- NOTE | 2017-11-01 07:29 | DS ---
DISCHARGE SUMMARY DATE OF ADMISSION: 10/26/17. DATE OF DISCHARGE: October 31, 2017. FINAL DIAGNOSES: 1. Acute left pyelonephritis associated with left nephrolithiasis. Cultures growing E coli. 2. Diabetes mellitus type 2, chronically on insulin. 3. Obesity; BMI 34. 4. Gastroesophageal reflux disease. 5. Essential hypertension. 6. Chronic brain demyelination syndrome. 7. Polycystic ovarian syndrome. HOSPITAL COURSE: This patient presented with acute left pyelonephritis. Has a known kidney stone. Cultures did grow E coli. Symptoms are much improved by the time of discharge. Seen by Dr. Murray who okayed to be discharged. PHYSICAL EXAMINATION: On exam abdomen soft, nontender. Lungs fair entry. DISCHARGE MEDICATIONS: 1. Lantus 15 units subcu q.h.s. 2. Apidra 5 units a.c. t.i.d. 3. Tofranil 25 q.h.s. 4. Zestril 10 mg p.o. q.h.s. 5. Imitrex 100 mg daily p.r.n. 6. Glucophage 1000 mg p.o. b.i.d. with meals. 7. Claritin 10 mg p.o. q.h.s. 8. Zyprexa 10 mg p.o. b.i.d. 9. Prozac 40 mg p.o. daily. 10.Meloxicam 7.5 p.o. q.h.s. 11.Omeprazole 20 mg p.o. daily. 12.Atarax 25 mg p.o. t.i.d. 13.Percocet 10 1 tab q.i.d. p.r.n. 14.Depakote ER 500 mg p.o. b.i.d. 15.Cipro 500 mg p.o. q.12 20 tablets. 16.Diflucan 100 mg a day for 10 tablets. Follow up with Dr. Melchor Stevens 11/07/2017. MMLUHL / IJN: [id number] /
== END 2017-10-31 14:25 | disposition home or self-care (01) | DRG 690 ==
LOC: EC 09:36 → 4MS4W 12:55
PROVIDERS: ADMIT Hospitalist; ATTEND Hospitalist
DX: N10 Acute pyelonephritis (principal); Q61.3 Polycystic kidney, unspecified; G37.8 Other specified demyelinating diseases of central nervous system; B96.20 Unspecified Escherichia coli [E. coli] as the cause of diseases classified elsewhere; E11.65 Type 2 diabetes mellitus with hyperglycemia; E28.2 Polycystic ovarian syndrome; E66.9 Obesity, unspecified; Z68.34 Body mass index [BMI] 34.0-34.9, adult; F17.200 Nicotine dependence, unspecified, uncomplicated; F31.9 Bipolar disorder, unspecified; F90.9 Attention-deficit hyperactivity disorder, unspecified type; I10 Essential (primary) hypertension; K21.9 Gastro-esophageal reflux disease without esophagitis; N20.0 Calculus of kidney; Z79.4 Long term (current) use of insulin; Z79.899 Other long term (current) drug therapy; Z82.49 Family history of ischemic heart disease and other diseases of the circulatory system; Z83.3 Family history of diabetes mellitus; Z87.442 Personal history of urinary calculi; Z90.710 Acquired absence of both cervix and uterus; Z79.891 Long term (current) use of opiate analgesic; Z88.6 Allergy status to analgesic agent; Z91.041 Radiographic dye allergy status; Z88.5 Allergy status to narcotic agent; Z88.0 Allergy status to penicillin; Z88.2 Allergy status to sulfonamides; Z91.018 Allergy to other foods; Z80.43 Family history of malignant neoplasm of testis
CPT/HCPCS: 36415; 74018; 76770; 80048; 80053; 81001; 81025; 83036; 85025; 85610; 85730; 87077; 87086; 87186; 96361; 96374; 96375; 96376; 99285

== ENCOUNTER → 2017-11-08 | Outpatient (CLI) | payer OTHER ==
[2017-11-08 14:02] LABS: Basophils % (A) 0 %; Eosinophils # (A) 0.3 k/uL (0-0.7); Eosinophils % (A) 3 %; HCT 36.3 % (34.0-46.0); HGB 11.9 gm/dL (11.4-16.0); Lymphocytes # (A) 3.7 k/uL (1.0-4.8); Lymphocytes % (A) 28 %; MCH 26.9 pg (25.0-35.0); MCHC 32.7 g/dL (31.0-37.0); MCV 82.3 fL (80.0-100.0); Mean Platelet Volume 6.5; Monocytes # (A) 0.8 k/uL (0-1.0); Monocytes % (A) 6 %; Neutrophils # (A) 8.2 k/uL (1.3-7.7); Neutrophils % (A) 62 %; Platelet Count 397 k/uL (150-450); RBC 4.42 m/uL (3.80-5.40); RDW 14.5 % (11.5-15.5); WBC 13.2 k/uL (3.8-10.6)
[2017-11-08 14:15] LABS: ALT 26 U/L (9-52); AST 25 U/L (14-36); Albumin 4.1 g/dL (3.5-5.0); Alkaline Phosphatase 75 U/L (38-126); Anion Gap 17 mmol/L; Blood Urea Nitrogen 12 mg/dL (7-17); Calcium 9.5 mg/dL (8.4-10.2); Carbon Dioxide 25 mmol/L (22-30); Chloride 101 mmol/L (98-107); Glucose 131 mg/dL (74-99); Sodium 143 mmol/L (137-145); Total Bilirubin 0.3 mg/dL (0.2-1.3); Total Protein 6.9 g/dL (6.3-8.2)
[2017-11-08 14:20] LABS: Valproic Acid (Depakene) 38.5 ug/mL
== END ==
LOC: LABWHC1 12:59
PROVIDERS: ATTEND Psychiatry & Neurology Psychiatry
DX: Z51.81 Encounter for therapeutic drug level monitoring (principal); Z79.899 Other long term (current) drug therapy
CPT/HCPCS: 36415; 80053; 80164; 85025

== ENCOUNTER 2017-11-22 07:02 | Emergency (ER) | payer OTHER ==
[2017-11-22] MEDS ORDERED: MORPHINE SULFATE 2 MG/ML SYRINGE IV STA (07:27)
[2017-11-22] MEDS ORDERED: KETOROLAC 30 MG/ML 1 ML VIAL IVP STA (07:27)
[2017-11-22] MEDS ORDERED: SODIUM CHLORIDE 0.9% 1,000 ML IV STA (07:27)
--- NOTE | 2017-11-22 07:57 | ED ---
General Adult HPI - General Chief complaint: Abdominal Pain Stated complaint: Kidney stone Time Seen by Provider: 11/22/17 07:15 Source: patient, RN notes reviewed, old records reviewed Mode of arrival: ambulatory Limitations: no limitations - History of Present Illness Initial comments: 42-year-old female with history of nephrolithiasis and chronic UTI presents with abdominal pain and flank pain. Patient has had worsening flank pain over the past 3 days associated with suprapubic pain. She is currently on ciprofloxacin for urinary tract infection. She had a hospital admission approximately 3 weeks ago with pyelonephritis. She has had some nausea and vomiting as well as subjective fever and chills. No changes in her bowels. No upper abdominal pain. No chest pain or shortness of breath. - Related Data Home Medications Medication Instructions Recorded Confirmed Insulin Glargine,Hum.rec.anlog 15 unit SQ HS 07/24/17 11/22/17 [Basaglar Kwikpen U-100] Insulin Glulisine [Apidra] 5 unit SQ AC-TID 07/29/17 11/22/17 Loratadine [Claritin] 10 mg PO HS 08/19/17 11/22/17 OLANZapine [ZyPREXA] 10 mg PO BID@0900,2200 08/19/17 11/22/17 FLUoxetine HCL [PROzac] 40 mg PO DAILY 08/29/17 11/22/17 Meloxicam 7.5 mg PO HS 08/29/17 11/22/17 Omeprazole 20 mg PO DAILY 08/29/17 11/22/17 hydrOXYzine HCL [Atarax] 25 mg PO TID 08/29/17 11/22/17 oxyCODONE-APAP 10-325MG [Percocet 1 tab PO QID PRN 08/29/17 11/22/17 10-325 mg] Divalproex ER [Depakote ER] 500 mg PO BID 10/23/17 11/22/17 metroNIDAZOLE [Flagyl] 500 mg PO BID 11/22/17 11/22/17 Previous Rx's Medication Instructions Recorded Imipramine [Tofranil] 25 mg PO HS #30 tab 08/02/17 Lisinopril [Zestril] 10 mg PO HS tab 08/02/17 SUMAtriptan SUCCINATE [Imitrex] 100 mg PO DAILY PRN tab 08/02/17 metFORMIN HCL [Glucophage] 1,000 mg PO BID-W/MEALS tab 08/02/17 Fluconazole [Diflucan] 100 mg PO DAILY #10 tab 10/31/17 Levofloxacin [Levaquin] 500 mg PO DAILY 3 Days #7 tab 11/22/17 Allergies Allergy/AdvReac Type Severity Reaction Status Date / Time bupropion HCl Allergy Rash/Hives Verified 11/22/17 07:45 [From Wellbutrin] fentanyl Allergy Swelling Verified 11/22/17 07:45 hydrocodone Allergy Itching Verified 11/22/17 07:45 Iodinated Contrast- Oral and Allergy Anaphylaxis Verified 11/22/17 07:45 IV Dye [Iodinated Contrast Media - IV Dye] orange juice [[place]] Allergy Rash/Hives Verified 11/22/17 07:45 Sulfa (Sulfonamide Allergy Rash/Hives Verified 11/22/17 07:45 Antibiotics) Penicillins AdvReac Nausea & Verified 11/22/17 07:45 Vomiting Review of Systems ROS Statement: Those systems with pertinent positive or pertinent negative responses have been documented in the HPI. ROS Other: All systems not noted in ROS Statement are negative. 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 History of Any Multi-Drug Resistant Organisms: None Reported Date of last positivie culture/infection: 05/14/17 MDRO Source:: ESBL URINE Past Surgical History: Bladder Surgery, Section, Cholecystectomy, Hysterectomy, Orthopedic Surgery, Tubal Ligation Additional Past Surgical History / Comment(s): R ovarian cystectomy, laparoscopic surgery for L ovary that had attached to the bowel, D&C, numerous lithotripsies, nephroscopies, cystoscopies and stents to ureters-none in place at this time, L robotic pyeloplasty with post op infection around kidney which then required a picc line/later removed (pt states was not MRSA), L rotator cuff repair, L wrist tendon surgery, colonoscopy Past Anesthesia/Blood Transfusion Reactions: Family History of Problems w/ Anesthesia Additional Past Anesthesia/Blood Transfusion Reaction / Comment(s): dad-hard time waking up due to enzyme problems in liver Past Psychological History: ADD/ADHD, Anxiety, Bipolar, Depression, PTSD Smoking Status: Current every day smoker Past Alcohol Use History: None Reported Past Drug Use History: None Reported - Past Family History Brother(s) Family Medical History: Cancer Additional Family Medical History / Comment(s): testicular Father Family Medical History: Coronary Artery Disease (CAD), CVA/TIA, Diabetes Mellitus, Renal Disease Additional Family Medical History / Comment(s): GLAUCOMA,NEUROPATHY HAD TRIPLE CABG, at 56yrs from renal disease. Mother Family Medical History: Hyperlipidemia Additional Family Medical History / Comment(s): DDD, HAD 3 vessel CABG AGE 54. General Exam Limitations: no limitations General appearance: alert, in no apparent distress Head exam: Present: atraumatic, normocephalic Eye exam: Present: normal appearance, PERRL ENT exam: Present: normal exam Neck exam: Present: normal inspection. Absent: tenderness, meningismus Respiratory exam: Present: normal lung sounds bilaterally. Absent: respiratory distress, wheezes Cardiovascular Exam: Present: normal rhythm, tachycardia GI/Abdominal exam: Present: soft. Absent: distended, tenderness, guarding, rebound Extremities exam: Present: normal inspection, full ROM Back exam: Present: CVA tenderness (L) Neurological exam: Present: alert, oriented X3 Psychiatric exam: Present: normal affect, normal mood Skin exam: Present: warm, dry, intact. Absent: cyanosis, diaphoretic Course Vital Signs 11/22/17 07:10 Temperature 97.9 F Pulse Rate 120 H Respiratory 18 Rate Blood Pressure 114/82 O2 Sat by Pulse 98 Oximetry - Reevaluation(s) Reevaluation #1: 11/22/17 08:57 On reevaluation, patient is feeling better. Medical Decision Making - Medical Decision Making 42-year-old female presenting for evaluation of flank pain and dysuria as well as suprapubic pain. Patient has been dealing with UTI and nephrolithiasis chronically but specifically over the last 1 month. She is on antibiotics right now she believes she is on Flagyl. He was previously on Cipro. Urine culture results from earlier this month reveal E. coli which is susceptible to both Cipro and Levaquin. Patient has ALLERGY to penicillins and sulfa drugs. She believes she is currently on Flagyl, this antibiotic will be switched to Levaquin. Labs are reviewed, normal white blood cell count, stable hemoglobin. X-rays negative for obstruction or free air, there is no obvious stones on KUB. UA shows 3+ glucose, 1+ ketones consistent with dehydration, and is primarily hemorrhagic with greater than 182 blood cells and only 42 white cells. There is also rare bacteria. Repeat culture is obtained. Patient is feeling significantly better after Toradol, morphine, and IV fluids. She will be given a prescription for Levaquin and discharged with outpatient follow-up. - Lab Data Result diagrams: 11/22/17 08:00 11/22/17 08:00 Lab Results 11/22/17 11/22/17 11/22/17 Range/Units 08:00 08:00 08:00 WBC 9.5 (3.8-10.6) k/uL RBC 5.02 (3.80-5.40) m/uL Hgb 13.6 (11.4-16.0) gm/dL Hct 40.2 (34.0-46.0) % MCV 80.0 (80.0-100.0) fL MCH 27.0 (25.0-35.0) pg MCHC 33.8 (31.0-37.0) g/dL RDW 14.8 (11.5-15.5) % Plt Count 284 (150-450) k/uL Neutrophils % 63 % Lymphocytes % 28 % Monocytes % 4 % Eosinophils % 3 % Basophils % 1 % Neutrophils # 6.0 (1.3-7.7) k/uL Lymphocytes # 2.7 (1.0-4.8) k/uL Monocytes # 0.4 (0-1.0) k/uL Eosinophils # 0.3 (0-0.7) k/uL Basophils # 0.1 (0-0.2) k/uL Sodium 142 (137-145) mmol/L Potassium 4.5 (3.5-5.1) mmol/L Chloride 105 (98-107) mmol/L Carbon Dioxide 19 L (22-30) mmol/L Anion Gap 18 mmol/L BUN 19 H (7-17) mg/dL Creatinine 0.63 (0.52-1.04) mg/dL Est GFR (CKD-EPI)AfAm >90 (>60 ml/min/1.73 sqM) Est GFR (CKD-EPI)NonAf >90 (>60 ml/min/1.73 sqM) Glucose 161 H (74-99) mg/dL Calcium 9.8 (8.4-10.2) mg/dL Total Bilirubin 0.5 (0.2-1.3) mg/dL AST 23 (14-36) U/L ALT 26 (9-52) U/L Alkaline Phosphatase 82 (38-126) U/L Total Protein 7.2 (6.3-8.2) g/dL Albumin 4.4 (3.5-5.0) g/dL Amylase 57 (30-110) U/L Lipase 181 (23-300) U/L Urine Color Light Red Urine Appearance Cloudy H (Clear) Urine pH 6.0 (5.0-8.0) Ur Specific [place] 1.024 (1.001-1.035) Urine Protein 1+ H (Negative) Urine Glucose (UA) 3+ H (Negative) Urine Ketones 1+ H (Negative) Urine Blood Large H (Negative) Urine Nitrite Negative (Negative) Urine Bilirubin Negative (Negative) Urine Urobilinogen 2.0 (<2.0) mg/dL Ur Leukocyte Esterase Trace H (Negative) Urine RBC >182 H (0-5) /hpf Urine WBC 42 H (0-5) /hpf Ur Squamous Epith Cells 7 H (0-4) /hpf Calcium Oxalate Crystal Many H (None) /hpf Urine Bacteria Rare H (None) /hpf Urine Mucus Few H (None) /hpf Disposition Clinical Impression: Flank pain, Left flank pain, chronic, Nephrolithiasis, UTI (urinary tract infection) Disposition: HOME SELF-CARE Condition: Good Instructions: Kidney Stones (ED), Urinary Tract Infection in Women (ED) Prescriptions: Levofloxacin [Levaquin] 500 mg PO DAILY 3 Days #7 tab Is patient prescribed a controlled substance at d/c from ED?: No Referrals: Melchor Stevens MD [Primary Care Provider] - 1-2 days Time of Disposition: 09:00
[2017-11-22 08:13] LABS: Basophils # (A) 0.1 k/uL (0-0.2); Basophils % (A) 1 %; Eosinophils # (A) 0.3 k/uL (0-0.7); Eosinophils % (A) 3 %; HCT 40.2 % (34.0-46.0); HGB 13.6 gm/dL (11.4-16.0); Lymphocytes # (A) 2.7 k/uL (1.0-4.8); Lymphocytes % (A) 28 %; MCHC 33.8 g/dL (31.0-37.0); Mean Platelet Volume 7.2; Monocytes # (A) 0.4 k/uL (0-1.0); Monocytes % (A) 4 %; Neutrophils % (A) 63 %; Platelet Count 284 k/uL (150-450); RBC 5.02 m/uL (3.80-5.40); RDW 14.8 % (11.5-15.5); WBC 9.5 k/uL (3.8-10.6)
--- NOTE | 2017-11-22 08:21 | XR ---
EXAMINATION TYPE: XR KUB DATE OF EXAM: 11/22/2017 8:11 AM CLINICAL HISTORY: Flank pain with history of nephrolithiasis. TECHNIQUE: Single supine KUB image of the abdomen is obtained. COMPARISON: 10/26/2017 FINDINGS: Scattered gas is seen in non-distended small bowel loops. Gas and fecal material is seen in non-distended colon. There is no visceromegaly, pneumoperitoneum, or abnormal calcification apprecia coco. Again the previously seen punctate nephrolith seen on the prior CT are not demonstrated overall radiographically. Cholecystectomy clips are present. The lung bases are clear and the osseous structu res are intact. IMPRESSION: 1. Nonobstructive bowel gas pattern. 2. Again the previously seen punctate calcifications on CT are not well-demonstrated radiographically .
[2017-11-22 08:25] LABS: ALT 26 U/L (9-52); AST 23 U/L (14-36); Albumin 4.4 g/dL (3.5-5.0); Alkaline Phosphatase 82 U/L (38-126); Amylase 57 U/L (30-110); Anion Gap 18 mmol/L; Blood Urea Nitrogen 19 mg/dL (7-17); Calcium 9.8 mg/dL (8.4-10.2); Carbon Dioxide 19 mmol/L (22-30); Chloride 105 mmol/L (98-107); Glucose 161 mg/dL (74-99); Lipase 181 U/L (23-300); Potassium 4.5 mmol/L (3.5-5.1); Sodium 142 mmol/L (137-145); Total Bilirubin 0.5 mg/dL (0.2-1.3); Total Protein 7.2 g/dL (6.3-8.2)
[2017-11-22 08:32] LABS: Appearance,Urine Cloudy (Clear); Bacteria,Urine Rare /hpf; Bilirubin,Urine Negative (Negative); Blood,Urine Large (Negative); Calcium Oxalate Crystals,Urine Many /hpf; Color,Urine Light Red; Glucose,Urine (UA) 3+ (Negative); Ketones,Urine 1+ (Negative); Leukocyte Esterase,Urine Trace (Negative); Mucus,Urine Few /hpf; Nitrite,Urine Negative (Negative); Protein,Urine 1+ (Negative); RBC,Urine >182 /hpf (0-5); Specific Gravity,Urine 1.024 (1.001-1.035); Squamous Epithelial Cell,Urine 7 /hpf (0-4); WBC,Urine 42 /hpf (0-5)
[2017-11-22 09:28] VITALS: BP 117/71; PULSE 102; RESP 15; TEMP 97.7
== END 2017-11-22 09:28 | disposition home or self-care (01) ==
LOC: EC 07:02
DX: N20.0 Calculus of kidney (principal); N39.0 Urinary tract infection, site not specified; R00.0 Tachycardia, unspecified; E11.9 Type 2 diabetes mellitus without complications; K21.9 Gastro-esophageal reflux disease without esophagitis; F31.9 Bipolar disorder, unspecified; F41.9 Anxiety disorder, unspecified; F17.200 Nicotine dependence, unspecified, uncomplicated; Z79.1 Long term (current) use of non-steroidal anti-inflammatories (NSAID); Z79.4 Long term (current) use of insulin; Z79.899 Other long term (current) drug therapy; Z88.0 Allergy status to penicillin; Z88.2 Allergy status to sulfonamides; Z88.5 Allergy status to narcotic agent; Z88.8 Allergy status to other drugs, medicaments and biological substances; Z91.018 Allergy to other foods; Z91.041 Radiographic dye allergy status; Z87.39 Personal history of other diseases of the musculoskeletal system and connective tissue; Z87.898 Personal history of other specified conditions; Z90.49 Acquired absence of other specified parts of digestive tract; Z84.1 Family history of disorders of kidney and ureter; Z82.49 Family history of ischemic heart disease and other diseases of the circulatory system; Z98.890 Other specified postprocedural states
CPT/HCPCS: 36415; 74018; 80053; 81001; 82150; 83690; 85025; 87086; 96361; 96374; 96375; 99284

== ENCOUNTER 2017-11-26 17:57 | Emergency (ER) | payer OTHER ==
[2017-11-26 18:10] VITALS: RESP 16
[2017-11-26] MEDS ORDERED: KETOROLAC 30 MG/ML 1 ML VIAL IVP STA (19:47)
[2017-11-26] MEDS ORDERED: ONDANSETRON 4 MG/2 ML VIAL IVP STA ×2 (19:47→21:53)
[2017-11-26] MEDS ORDERED: SODIUM CHLORIDE 0.9% 1,000 ML IV STA ×2 (19:47)
--- NOTE | 2017-11-26 20:31 | ED ---
Abdominal Pain HPI - General Chief Complaint: Abdominal Pain Stated Complaint: flank pain Time Seen by Provider: 11/26/17 19:46 Source: patient, RN notes reviewed, old records reviewed Mode of arrival: ambulatory Limitations: no limitations - History of Present Illness Initial Comments: This Patient is a 42-year-old female chief complaint of nausea, left flank pain and dysuria for the past weeks. Patient reports she's and also urinary tract infection and finished Levaquin today. Patient reports that she has a history of kidney stones and chronic kidney issues. Patient states that she's had some blood in her urine. She does see Dr. Hill and [place] of urology. Patient really she's had occasional fevers and chills. She denies any chest pain or shortness of breath. No diarrhea. - Related Data Home Medications Medication Instructions Recorded Confirmed Insulin Glargine,Hum.rec.anlog 15 unit SQ HS 07/24/17 11/26/17 [Basaglar Kwikpen U-100] Insulin Glulisine [Apidra] 5 unit SQ AC-TID 07/29/17 11/26/17 Loratadine [Claritin] 10 mg PO HS 08/19/17 11/26/17 OLANZapine [ZyPREXA] 10 mg PO BID@0900,2200 08/19/17 11/26/17 FLUoxetine HCL [PROzac] 40 mg PO DAILY 08/29/17 11/26/17 Meloxicam 7.5 mg PO HS 08/29/17 11/26/17 Omeprazole 20 mg PO DAILY 08/29/17 11/26/17 hydrOXYzine HCL [Atarax] 25 mg PO TID 08/29/17 11/26/17 oxyCODONE-APAP 10-325MG [Percocet 1 tab PO QID PRN 08/29/17 11/26/17 10-325 mg] Divalproex ER [Depakote ER] 500 mg PO BID 10/23/17 11/26/17 Previous Rx's Medication Instructions Recorded Imipramine [Tofranil] 25 mg PO HS #30 tab 08/02/17 Lisinopril [Zestril] 10 mg PO HS tab 08/02/17 SUMAtriptan SUCCINATE [Imitrex] 100 mg PO DAILY PRN tab 08/02/17 metFORMIN HCL [Glucophage] 1,000 mg PO BID-W/MEALS tab 08/02/17 Ondansetron Odt [Zofran Odt] 4 mg PO Q8HR PRN #12 tab 11/26/17 Allergies Allergy/AdvReac Type Severity Reaction Status Date / Time bupropion HCl Allergy Rash/Hives Verified 11/26/17 19:58 [From Wellbutrin] fentanyl Allergy Swelling Verified 11/26/17 19:58 hydrocodone Allergy Itching Verified 11/26/17 19:58 Iodinated Contrast- Oral and Allergy Anaphylaxis Verified 11/26/17 19:58 IV Dye [Iodinated Contrast Media - IV Dye] orange juice [[place]] Allergy Rash/Hives Verified 11/26/17 19:58 Sulfa (Sulfonamide Allergy Rash/Hives Verified 11/26/17 19:58 Antibiotics) Penicillins AdvReac Nausea & Verified 11/26/17 19:58 Vomiting Review of Systems ROS Statement: Those systems with pertinent positive or pertinent negative responses have been documented in the HPI. ROS Other: All systems not noted in ROS Statement are negative. 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 History of Any Multi-Drug Resistant Organisms: None Reported Date of last positivie culture/infection: 05/14/17 MDRO Source:: ESBL URINE Past Surgical History: Bladder Surgery, Section, Cholecystectomy, Hysterectomy, Orthopedic Surgery, Tubal Ligation Additional Past Surgical History / Comment(s): R ovarian cystectomy, laparoscopic surgery for L ovary that had attached to the bowel, D&C, numerous lithotripsies, nephroscopies, cystoscopies and stents to ureters-none in place at this time, L robotic pyeloplasty with post op infection around kidney which then required a picc line/later removed (pt states was not MRSA), L rotator cuff repair, L wrist tendon surgery, colonoscopy Past Anesthesia/Blood Transfusion Reactions: Family History of Problems w/ Anesthesia Additional Past Anesthesia/Blood Transfusion Reaction / Comment(s): dad-hard time waking up due to enzyme problems in liver Past Psychological History: ADD/ADHD, Anxiety, Bipolar, Depression, PTSD Smoking Status: Current every day smoker Past Alcohol Use History: None Reported Past Drug Use History: None Reported - Past Family History Brother(s) Family Medical History: Cancer Additional Family Medical History / Comment(s): testicular Father Family Medical History: Coronary Artery Disease (CAD), CVA/TIA, Diabetes Mellitus, Renal Disease Additional Family Medical History / Comment(s): GLAUCOMA,NEUROPATHY HAD TRIPLE CABG, at 56yrs from renal disease. Mother Family Medical History: Hyperlipidemia Additional Family Medical History / Comment(s): DDD, HAD 3 vessel CABG AGE 54. General Exam - General Exam Comments Initial Comments: This patient's a 42-year-old female. Alert and oriented. No significant distress. Limitations: no limitations General appearance: alert, in no apparent distress Head exam: Present: atraumatic, normocephalic, normal inspection Eye exam: Present: normal appearance, PERRL, EOMI. Absent: scleral icterus, conjunctival injection, periorbital swelling ENT exam: Present: normal exam, mucous membranes moist Neck exam: Present: normal inspection. Absent: tenderness, meningismus, lymphadenopathy Respiratory exam: Present: normal lung sounds bilaterally. Absent: respiratory distress, wheezes, rales, rhonchi, stridor Cardiovascular Exam: Present: regular rate, normal rhythm, normal heart sounds. Absent: systolic murmur, diastolic murmur, rubs, gallop, clicks GI/Abdominal exam: Present: soft, normal bowel sounds. Absent: distended, tenderness, guarding, rebound, rigid Extremities exam: Present: normal inspection, full ROM, normal capillary refill. Absent: tenderness, pedal edema, joint swelling, calf tenderness Back exam: Present: normal inspection, CVA tenderness (L) Neurological exam: Present: alert, oriented X3, CN II-XII intact Psychiatric exam: Present: normal affect, normal mood Skin exam: Present: warm, dry, intact, normal color. Absent: rash Course Vital Signs 11/26/17 11/26/17 18:07 22:58 Temperature 98.8 F 98.1 F Pulse Rate 114 H 96 Respiratory 16 16 Rate Blood Pressure 110/77 123/88 O2 Sat by Pulse 100 100 Oximetry Medical Decision Making - Medical Decision Making This Patient is a 42-year-old female chief complaint of nausea, left flank pain and dysuria for the past weeks. Patient reports she's and also urinary tract infection and finished Levaquin today. Patient reports that she has a history of kidney stones and chronic kidney issues. Patient states that she's had some blood in her urine. She does see Dr. Hill and [place] of urology. AT this time, labs were reviewed. She has mildly elevated lactic acid, she does report vomiting. Given 2L fluids. PAtient given pain medication and nausea medication, and feels improvement of symptoms. UA shows only RBC, no sign of infection. KUB shows no stones at this time. Discussed with patient possibility of CT scan to R/O obstructing stone. Patient reports she does not want to do so , as she has had so many CT scans in her life already. She does have flomax and pain medication at home. Will given Rx for zofran. Discussed importance of follow up with urology and PCP. Patient agrees to treatmetn plan and will comply. - Lab Data Result diagrams: 11/26/17 20:21 11/26/17 20:21 Lab Results 11/26/17 11/26/17 11/26/17 Range/Units 20:21 20:21 20:21 WBC 9.0 (3.8-10.6) k/uL RBC 4.70 (3.80-5.40) m/uL Hgb 12.8 (11.4-16.0) gm/dL Hct 37.3 (34.0-46.0) % MCV 79.4 L (80.0-100.0) fL MCH 27.3 (25.0-35.0) pg MCHC 34.3 (31.0-37.0) g/dL RDW 14.6 (11.5-15.5) % Plt Count 279 (150-450) k/uL Neutrophils % 53 % Lymphocytes % 39 % Monocytes % 4 % Eosinophils % 3 % Basophils % 0 % Neutrophils # 4.8 (1.3-7.7) k/uL Lymphocytes # 3.5 (1.0-4.8) k/uL Monocytes # 0.4 (0-1.0) k/uL Eosinophils # 0.2 (0-0.7) k/uL Basophils # 0.0 (0-0.2) k/uL Sodium 141 (137-145) mmol/L Potassium 4.1 (3.5-5.1) mmol/L Chloride 104 (98-107) mmol/L Carbon Dioxide 22 (22-30) mmol/L Anion Gap 15 mmol/L BUN 17 (7-17) mg/dL Creatinine 0.60 (0.52-1.04) mg/dL Est GFR (CKD-EPI)AfAm >90 (>60 ml/min/1.73 sqM) Est GFR (CKD-EPI)NonAf >90 (>60 ml/min/1.73 sqM) Glucose 137 H (74-99) mg/dL Lactic Ac Sepsis Rflx Plasma Lactic Acid Brant (0.7-2.0) mmol/L Calcium 10.0 (8.4-10.2) mg/dL Total Bilirubin 0.4 (0.2-1.3) mg/dL AST 19 (14-36) U/L ALT 28 (9-52) U/L Alkaline Phosphatase 85 (38-126) U/L Total Protein 6.8 (6.3-8.2) g/dL Albumin 4.2 (3.5-5.0) g/dL Amylase 45 (30-110) U/L Lipase 87 (23-300) U/L Urine Color Yellow Urine Appearance Cloudy H (Clear) Urine pH 6.5 (5.0-8.0) Ur Specific [place] 1.025 (1.001-1.035) Urine Protein 1+ H (Negative) Urine Glucose (UA) Negative (Negative) Urine Ketones 2+ H (Negative) Urine Blood Large H (Negative) Urine Nitrite Negative (Negative) Urine Bilirubin Negative (Negative) Urine Urobilinogen 3.0 (<2.0) mg/dL Ur Leukocyte Esterase Negative (Negative) Urine RBC >182 H (0-5) /hpf Urine WBC 3 (0-5) /hpf Ur Squamous Epith Cells 20 H (0-4) /hpf Urine Bacteria Occasional H (None) /hpf Hyaline Casts 8 H (0-2) /lpf Urine Mucus Many H (None) /hpf 11/26/17 11/26/17 Range/Units 20:21 20:46 WBC (3.8-10.6) k/uL RBC (3.80-5.40) m/uL Hgb (11.4-16.0) gm/dL Hct (34.0-46.0) % MCV (80.0-100.0) fL MCH (25.0-35.0) pg MCHC (31.0-37.0) g/dL RDW (11.5-15.5) % Plt Count (150-450) k/uL Neutrophils % % Lymphocytes % % Monocytes % % Eosinophils % % Basophils % % Neutrophils # (1.3-7.7) k/uL Lymphocytes # (1.0-4.8) k/uL Monocytes # (0-1.0) k/uL Eosinophils # (0-0.7) k/uL Basophils # (0-0.2) k/uL Sodium (137-145) mmol/L Potassium (3.5-5.1) mmol/L Chloride (98-107) mmol/L Carbon Dioxide (22-30) mmol/L Anion Gap mmol/L BUN (7-17) mg/dL Creatinine (0.52-1.04) mg/dL Est GFR (CKD-EPI)AfAm (>60 ml/min/1.73 sqM) Est GFR (CKD-EPI)NonAf (>60 ml/min/1.73 sqM) Glucose (74-99) mg/dL Lactic Ac Sepsis Rflx Y Plasma Lactic Acid Brant 2.6 H* (0.7-2.0) mmol/L Calcium (8.4-10.2) mg/dL Total Bilirubin (0.2-1.3) mg/dL AST (14-36) U/L ALT (9-52) U/L Alkaline Phosphatase (38-126) U/L Total Protein (6.3-8.2) g/dL Albumin (3.5-5.0) g/dL Amylase (30-110) U/L Lipase (23-300) U/L Urine Color Urine Appearance (Clear) Urine pH (5.0-8.0) Ur Specific [place] (1.001-1.035) Urine Protein (Negative) Urine Glucose (UA) (Negative) Urine Ketones (Negative) Urine Blood (Negative) Urine Nitrite (Negative) Urine Bilirubin (Negative) Urine Urobilinogen (<2.0) mg/dL Ur Leukocyte Esterase (Negative) Urine RBC (0-5) /hpf Urine WBC (0-5) /hpf Ur Squamous Epith Cells (0-4) /hpf Urine Bacteria (None) /hpf Hyaline Casts (0-2) /lpf Urine Mucus (None) /hpf - Radiology Data Radiology results: report reviewed KUB is negative for any acute process. Disposition Clinical Impression: Acute flank pain, Hematuria Disposition: HOME SELF-CARE Condition: Good Instructions: Flank Pain (ED) Additional Instructions: Patient advised to follow-up with primary care provider. Return to the emergency department if any alarming signs or symptoms occur. Continue at home pain medication. His the nausea medicine as needed. Prescriptions: Ondansetron Odt [Zofran Odt] 4 mg PO Q8HR PRN #12 tab PRN Reason: Nausea Is patient prescribed a controlled substance at d/c from ED?: No When asked, does pt state using other controlled substances?: No If prescribed controlled substance>3 days was MAPS reviewed?: No If opioid is for acute pain is fill amount 7 days or less?: No If Rx opioid, was Start Talking consent form obtained?: No Referrals: Melchor Stevens MD [Primary Care Provider] - 1-2 days Time of Disposition: 22:20
[2017-11-26 20:33] LABS: Basophils % (A) 0 %; Eosinophils # (A) 0.2 k/uL (0-0.7); Eosinophils % (A) 3 %; HCT 37.3 % (34.0-46.0); HGB 12.8 gm/dL (11.4-16.0); Lymphocytes # (A) 3.5 k/uL (1.0-4.8); Lymphocytes % (A) 39 %; MCH 27.3 pg (25.0-35.0); MCHC 34.3 g/dL (31.0-37.0); MCV 79.4 fL (80.0-100.0); Mean Platelet Volume 7.1; Monocytes # (A) 0.4 k/uL (0-1.0); Monocytes % (A) 4 %; Neutrophils # (A) 4.8 k/uL (1.3-7.7); Neutrophils % (A) 53 %; Platelet Count 279 k/uL (150-450); RDW 14.6 % (11.5-15.5)
[2017-11-26 20:40] LABS: Appearance,Urine Cloudy (Clear); Bacteria,Urine Occasional /hpf; Bilirubin,Urine Negative (Negative); Blood,Urine Large (Negative); Color,Urine Yellow; Glucose,Urine (UA) Negative (Negative); Hyaline Casts,Urine 8 /lpf (0-2); Ketones,Urine 2+ (Negative); Leukocyte Esterase,Urine Negative (Negative); Mucus,Urine Many /hpf; Nitrite,Urine Negative (Negative); PH, Urine 6.5 (5.0-8.0); Protein,Urine 1+ (Negative); RBC,Urine >182 /hpf (0-5); Specific Gravity,Urine 1.025 (1.001-1.035); Squamous Epithelial Cell,Urine 20 /hpf (0-4); WBC,Urine 3 /hpf (0-5)
[2017-11-26 20:43] LABS: ALT 28 U/L (9-52); AST 19 U/L (14-36); Albumin 4.2 g/dL (3.5-5.0); Alkaline Phosphatase 85 U/L (38-126); Amylase 45 U/L (30-110); Anion Gap 15 mmol/L; Blood Urea Nitrogen 17 mg/dL (7-17); Carbon Dioxide 22 mmol/L (22-30); Chloride 104 mmol/L (98-107); Glucose 137 mg/dL (74-99); Lipase 87 U/L (23-300); Potassium 4.1 mmol/L (3.5-5.1); Sodium 141 mmol/L (137-145); Total Bilirubin 0.4 mg/dL (0.2-1.3); Total Protein 6.8 g/dL (6.3-8.2)
--- NOTE | 2017-11-26 21:05 | XR ---
EXAMINATION TYPE: XR KUB 2 views DATE OF EXAM: 11/26/2017 COMPARISON: 07/12 HISTORY: Left abdominal flank pain, history renal calcifications and UTI TECHNIQUE: 2 upright views to image the abdomen and pelvis FINDINGS: There is no pneumoperitoneum or pneumatosis. The bowel gas pattern is normal. There are no calcifications over the renal shadows or the second course of the ureters or the urinary bladder. No acute soft tissue or skeletal findings. Visualized lung bases and pleural spaces are negative. IMPRESSION: No acute process.
[2017-11-26] MEDS ORDERED: SODIUM CHLORIDE 0.9% 1,000 ML IV ONE (21:14)
[2017-11-26] MEDS ORDERED: MORPHINE SULFATE 2 MG/ML SYRINGE IVP STA (21:53)
[2017-11-26 22:59] VITALS: BP 123/88; PULSE 96; TEMP 98.1
== END 2017-11-26 22:59 | disposition home or self-care (01) ==
LOC: EC 17:57
DX: R10.9 Unspecified abdominal pain (principal); R31.9 Hematuria, unspecified; N39.0 Urinary tract infection, site not specified; R11.0 Nausea; R30.0 Dysuria; R50.9 Fever, unspecified; Q61.3 Polycystic kidney, unspecified; E11.9 Type 2 diabetes mellitus without complications; K21.9 Gastro-esophageal reflux disease without esophagitis; F31.9 Bipolar disorder, unspecified; F41.9 Anxiety disorder, unspecified; F17.200 Nicotine dependence, unspecified, uncomplicated; Z79.1 Long term (current) use of non-steroidal anti-inflammatories (NSAID); Z79.4 Long term (current) use of insulin; Z79.899 Other long term (current) drug therapy; Z88.0 Allergy status to penicillin; Z88.2 Allergy status to sulfonamides; Z88.5 Allergy status to narcotic agent; Z88.8 Allergy status to other drugs, medicaments and biological substances; Z91.018 Allergy to other foods; Z91.041 Radiographic dye allergy status; Z86.69 Personal history of other diseases of the nervous system and sense organs; Z87.898 Personal history of other specified conditions; Z90.49 Acquired absence of other specified parts of digestive tract; Z98.890 Other specified postprocedural states; Z84.1 Family history of disorders of kidney and ureter
CPT/HCPCS: 36415; 80053; 82150; 83605; 83690; 85025; 81001; 87040; 87086; 74018; 99284; 96374; 96375 ×2; 96376; 96361 ×3; J2405; J1885; J2270

== ENCOUNTER 2018-02-01 00:03 | Emergency (ER) | payer OTHER ==
[2018-02-01 00:34] VITALS: RESP 18
[2018-02-01] MEDS ORDERED: ONDANSETRON 4 MG/2 ML VIAL IVP STA (00:57)
[2018-02-01] MEDS ORDERED: SODIUM CHLORIDE 0.9% 1,000 ML IV STA (00:57)
[2018-02-01] MEDS ORDERED: MORPHINE SULFATE 4 MG/ML SYRINGE IV STA (00:57)
--- NOTE | 2018-02-01 01:03 | ED ---
Female Urogenital HPI - General Chief complaint: Urogenital Stated complaint: Kidney Stone Time Seen by Provider: 02/01/18 00:37 Source: patient Mode of arrival: ambulatory Limitations: no limitations - History of Present Illness Initial comments: 42-year-old female patient presents to emergency department today for evaluation of left flank pain. Patient states the pain started on Sunday. States that she hasn't taking her home pain medications however they don't seem to be helping any longer. Patient did go to urgent care earlier today and did receive a Toradol injection as well as Zofran. Patient states that it didn't help so she did take an additional Toradol pill approximately 2 hours ago. Patient states that she has vomited several times today. States that she did have a fever of 102 at home. States that she has had urinary urgency and hematuria. She denies any constipation or diarrhea. Denies any urinary retention. States that she has been drinking water when able. Patient denies any recent rash, shortness breath, chest pain, numbness, tingling, dizziness, weakness, headache, visual changes, or any other complaints. - Related Data Home Medications Medication Instructions Recorded Confirmed Insulin Glargine,Hum.rec.anlog 15 unit SQ HS 07/24/17 11/26/17 [Basaglar Kwikpen U-100] Insulin Glulisine [Apidra] 5 unit SQ AC-TID 07/29/17 11/26/17 Loratadine [Claritin] 10 mg PO HS 08/19/17 11/26/17 OLANZapine [ZyPREXA] 10 mg PO BID@0900,2200 08/19/17 11/26/17 FLUoxetine HCL [PROzac] 40 mg PO DAILY 08/29/17 11/26/17 Meloxicam 7.5 mg PO HS 08/29/17 11/26/17 Omeprazole 20 mg PO DAILY 08/29/17 11/26/17 hydrOXYzine HCL [Atarax] 25 mg PO TID 08/29/17 11/26/17 oxyCODONE-APAP 10-325MG [Percocet 1 tab PO QID PRN 08/29/17 11/26/17 10-325 mg] Divalproex ER [Depakote ER] 500 mg PO BID 10/23/17 11/26/17 Previous Rx's Medication Instructions Recorded Imipramine [Tofranil] 25 mg PO HS #30 tab 08/02/17 Lisinopril [Zestril] 10 mg PO HS tab 08/02/17 SUMAtriptan SUCCINATE [Imitrex] 100 mg PO DAILY PRN tab 08/02/17 metFORMIN HCL [Glucophage] 1,000 mg PO BID-W/MEALS tab 08/02/17 Ondansetron Odt [Zofran Odt] 4 mg PO Q8HR PRN #12 tab 11/26/17 Ciprofloxacin HCl [Cipro] 500 mg PO Q12HR #14 tablet 02/01/18 Fluconazole [Diflucan] 150 mg PO ONCE #2 tab 02/01/18 Tamsulosin HCl [Flomax] 0.4 mg PO DAILY #7 cap 02/01/18 Allergies Allergy/AdvReac Type Severity Reaction Status Date / Time bupropion HCl Allergy Rash/Hives Verified 02/01/18 00:35 [From Wellbutrin] fentanyl Allergy Swelling Verified 02/01/18 00:35 hydrocodone Allergy Itching Verified 02/01/18 00:35 Iodinated Contrast- Oral and Allergy Anaphylaxis Verified 02/01/18 00:35 IV Dye [Iodinated Contrast Media - IV Dye] orange juice [[place]] Allergy Rash/Hives Verified 02/01/18 00:35 Sulfa (Sulfonamide Allergy Rash/Hives Verified 02/01/18 00:35 Antibiotics) Penicillins AdvReac Nausea & Verified 02/01/18 00:35 Vomiting Review of Systems ROS Statement: Those systems with pertinent positive or pertinent negative responses have been documented in the HPI. ROS Other: All systems not noted in ROS Statement are negative. 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 History of Any Multi-Drug Resistant Organisms: None Reported Date of last positivie culture/infection: 05/14/17 MDRO Source:: ESBL URINE Past Surgical History: Bladder Surgery, Section, Cholecystectomy, Hysterectomy, Orthopedic Surgery, Tubal Ligation Additional Past Surgical History / Comment(s): R ovarian cystectomy, laparoscopic surgery for L ovary that had attached to the bowel, D&C, numerous lithotripsies, nephroscopies, cystoscopies and stents to ureters-none in place at this time, L robotic pyeloplasty with post op infection around kidney which then required a picc line/later removed (pt states was not MRSA), L rotator cuff repair, L wrist tendon surgery, colonoscopy Past Anesthesia/Blood Transfusion Reactions: Family History of Problems w/ Anesthesia Additional Past Anesthesia/Blood Transfusion Reaction / Comment(s): dad-hard time waking up due to enzyme problems in liver Past Psychological History: ADD/ADHD, Anxiety, Bipolar, Depression, PTSD Smoking Status: Current every day smoker Past Alcohol Use History: None Reported Past Drug Use History: None Reported - Past Family History Brother(s) Family Medical History: Cancer Additional Family Medical History / Comment(s): testicular Father Family Medical History: Coronary Artery Disease (CAD), CVA/TIA, Diabetes Mellitus, Renal Disease Additional Family Medical History / Comment(s): GLAUCOMA,NEUROPATHY HAD TRIPLE CABG, at 56yrs from renal disease. Mother Family Medical History: Hyperlipidemia Additional Family Medical History / Comment(s): DDD, HAD 3 vessel CABG AGE 54. General Exam Limitations: no limitations General appearance: alert, in no apparent distress, other (This is a well- developed, well-nourished adult female patient in no acute distress. Vital signs upon presentation are temperature 98.2F, pulse 113, respirations 18, blood pressure 130/83, pulse ox 98% on room air.) Eye exam: Present: normal appearance, PERRL, EOMI. Absent: scleral icterus, conjunctival injection, periorbital swelling ENT exam: Present: normal exam, normal oropharynx, mucous membranes moist Respiratory exam: Present: normal lung sounds bilaterally. Absent: respiratory distress, wheezes, rales, rhonchi, stridor Cardiovascular Exam: Present: normal rhythm, tachycardia, normal heart sounds. Absent: systolic murmur, diastolic murmur, rubs, gallop, clicks GI/Abdominal exam: Present: soft, tenderness (Left lower quadrant), normal bowel sounds. Absent: distended, guarding, rebound, rigid Back exam: Present: normal inspection, CVA tenderness (L). Absent: CVA tenderness (R) Neurological exam: Present: alert, oriented X3, CN II-XII intact Psychiatric exam: Present: normal affect, normal mood Skin exam: Present: warm, dry, intact, normal color. Absent: rash Course Vital Signs 02/01/18 02/01/18 00:32 02:48 Temperature 98.2 F 97.6 F Pulse Rate 113 H 97 Respiratory 18 18 Rate Blood Pressure 130/83 121/65 O2 Sat by Pulse 98 98 Oximetry Medical Decision Making - Medical Decision Making 42-year-old female patient presents to the emergency department today for evaluation of left flank pain started Sunday. Patient has past medical history significant for frequent kidney stones. Patient states that her symptoms are consistent with her usual kidney stone exacerbations. Labs reviewed and are relatively unremarkable. Urinalysis did show greater than 182 red cells, greater than 182 white cells. Patient will be started on Flomax and Cipro for possible infection. She'll be instructed to follow-up with her urologist for probable kidney stone. Return parameters were discussed in detail. She verbalizes understanding and agrees this plan. - Lab Data Result diagrams: 02/01/18 00:53 02/01/18 00:53 Lab Results 02/01/18 02/01/18 02/01/18 Range/Units 00:53 00:53 00:53 WBC 12.6 H (3.8-10.6) k/uL RBC 4.94 (3.80-5.40) m/uL Hgb 13.5 (11.4-16.0) gm/dL Hct 39.9 (34.0-46.0) % MCV 80.7 (80.0-100.0) fL MCH 27.3 (25.0-35.0) pg MCHC 33.9 (31.0-37.0) g/dL RDW 14.1 (11.5-15.5) % Plt Count 368 (150-450) k/uL Neutrophils % 50 % Lymphocytes % 42 % Monocytes % 5 % Eosinophils % 2 % Basophils % 1 % Neutrophils # 6.3 (1.3-7.7) k/uL Lymphocytes # 5.3 H (1.0-4.8) k/uL Monocytes # 0.6 (0-1.0) k/uL Eosinophils # 0.2 (0-0.7) k/uL Basophils # 0.1 (0-0.2) k/uL Sodium 136 L (137-145) mmol/L Potassium 4.6 (3.5-5.1) mmol/L Chloride 104 (98-107) mmol/L Carbon Dioxide 17 L (22-30) mmol/L Anion Gap 15 mmol/L BUN 19 H (7-17) mg/dL Creatinine 0.70 (0.52-1.04) mg/dL Est GFR (CKD-EPI)AfAm >90 (>60 ml/min/1.73 sqM) Est GFR (CKD-EPI)NonAf >90 (>60 ml/min/1.73 sqM) Glucose 208 H (74-99) mg/dL Calcium 9.9 (8.4-10.2) mg/dL Total Bilirubin 0.5 (0.2-1.3) mg/dL AST 33 (14-36) U/L ALT 44 (9-52) U/L Alkaline Phosphatase 89 (38-126) U/L Total Protein 7.4 (6.3-8.2) g/dL Albumin 4.4 (3.5-5.0) g/dL Amylase 60 (30-110) U/L Lipase 238 (23-300) U/L Urine Color Light Red Urine Appearance Cloudy H (Clear) Urine pH 5.5 (5.0-8.0) Ur Specific [place] 1.019 (1.001-1.035) Urine Protein 1+ H (Negative) Urine Glucose (UA) Negative (Negative) Urine Ketones Trace H (Negative) Urine Blood Large H (Negative) Urine Nitrite Negative (Negative) Urine Bilirubin Negative (Negative) Urine Urobilinogen <2.0 (<2.0) mg/dL Ur Leukocyte Esterase Trace H (Negative) Urine RBC >182 H (0-5) /hpf Urine WBC >182 H (0-5) /hpf Ur Squamous Epith Cells 5 H (0-4) /hpf Hyaline Casts 9 H (0-2) /lpf Urine Mucus Few H (None) /hpf - Radiology Data Radiology results: report reviewed, image reviewed Two-view x-ray of the abdomen is obtained. There are clips from cholecystectomy. There is no sign of intestinal obstruction or pneumoperitoneum. Fecal pattern is normal. There is mild levoscoliosis. Lung bases are clear. Impression by Dr. Mack shows nonacute abdomen with no change. Disposition Clinical Impression: Kidney stone on left side, Kidney infection Disposition: HOME SELF-CARE Condition: Good Instructions: Kidney Stones (ED), Urinary Tract Infection in Women (ED) Additional Instructions: Increase fluids. Continue taking all medications as instructed. Follow-up with her primary care physician for recheck in 1-2 days. Follow-up with urology for further evaluation. Return here immediately for any new, worsening , or concerning symptoms. Prescriptions: Ciprofloxacin HCl [Cipro] 500 mg PO Q12HR #14 tablet Fluconazole [Diflucan] 150 mg PO ONCE #2 tab Tamsulosin HCl [Flomax] 0.4 mg PO DAILY #7 cap Is patient prescribed a controlled substance at d/c from ED?: No Referrals: Melchor Stevens MD [Primary Care Provider] - 1-2 days Cameron Thakkar MD [STAFF PHYSICIAN] - 1-2 days Time of Disposition: 02:27
[2018-02-01 01:19] LABS: Basophils # (A) 0.1 k/uL (0-0.2); Basophils % (A) 1 %; Eosinophils # (A) 0.2 k/uL (0-0.7); Eosinophils % (A) 2 %; HCT 39.9 % (34.0-46.0); HGB 13.5 gm/dL (11.4-16.0); Lymphocytes # (A) 5.3 k/uL (1.0-4.8); Lymphocytes % (A) 42 %; MCH 27.3 pg (25.0-35.0); MCHC 33.9 g/dL (31.0-37.0); MCV 80.7 fL (80.0-100.0); Mean Platelet Volume 6.8; Monocytes # (A) 0.6 k/uL (0-1.0); Monocytes % (A) 5 %; Neutrophils # (A) 6.3 k/uL (1.3-7.7); Neutrophils % (A) 50 %; Platelet Count 368 k/uL (150-450); RBC 4.94 m/uL (3.80-5.40); RDW 14.1 % (11.5-15.5); WBC 12.6 k/uL (3.8-10.6)
[2018-02-01 01:26] LABS: Appearance,Urine Cloudy (Clear); Bilirubin,Urine Negative (Negative); Blood,Urine Large (Negative); Color,Urine Light Red; Glucose,Urine (UA) Negative (Negative); Hyaline Casts,Urine 9 /lpf (0-2); Ketones,Urine Trace (Negative); Leukocyte Esterase,Urine Trace (Negative); Mucus,Urine Few /hpf; Nitrite,Urine Negative (Negative); PH, Urine 5.5 (5.0-8.0); Protein,Urine 1+ (Negative); RBC,Urine >182 /hpf (0-5); Specific Gravity,Urine 1.019 (1.001-1.035); Squamous Epithelial Cell,Urine 5 /hpf (0-4); Urobilinogen,Urine <2.0 mg/dL (<2.0); WBC,Urine >182 /hpf (0-5)
--- NOTE | 2018-02-01 01:30 | XR ---
EXAMINATION TYPE: XR KUB DATE OF EXAM: 02/01/2018 COMPARISON: 11/26/2017 HISTORY: Kidney stones flank pain TECHNIQUE: 2 views FINDINGS: There are clips from cholecystectomy. There is no sign of intestinal obstruction or pneumop eritoneum. Fecal pattern is normal. There is mild levoscoliosis. Lung bases are clear. IMPRESSION: Nonacute abdomen. No change.
[2018-02-01 01:35] LABS: ALT 44 U/L (9-52); AST 33 U/L (14-36); Albumin 4.4 g/dL (3.5-5.0); Alkaline Phosphatase 89 U/L (38-126); Amylase 60 U/L (30-110); Anion Gap 15 mmol/L; Blood Urea Nitrogen 19 mg/dL (7-17); Calcium 9.9 mg/dL (8.4-10.2); Carbon Dioxide 17 mmol/L (22-30); Chloride 104 mmol/L (98-107); Glucose 208 mg/dL (74-99); Lipase 238 U/L (23-300); Potassium 4.6 mmol/L (3.5-5.1); Sodium 136 mmol/L (137-145); Total Bilirubin 0.5 mg/dL (0.2-1.3); Total Protein 7.4 g/dL (6.3-8.2)
[2018-02-01] MEDS ORDERED: CIPROFLOXACIN HCL 500 MG TAB PO STA (02:25)
[2018-02-01] MEDS ORDERED: MORPHINE SULFATE 4 MG/ML SYRINGE IVP STA (02:26)
[2018-02-01 02:48] VITALS: BP 121/65; PULSE 97; TEMP 97.6
== END 2018-02-01 02:54 | disposition home or self-care (01) ==
LOC: EC 00:03
DX: N20.0 Calculus of kidney (principal); R00.0 Tachycardia, unspecified; E11.9 Type 2 diabetes mellitus without complications; K21.9 Gastro-esophageal reflux disease without esophagitis; F31.9 Bipolar disorder, unspecified; F41.9 Anxiety disorder, unspecified; F43.10 Post-traumatic stress disorder, unspecified; F17.200 Nicotine dependence, unspecified, uncomplicated; Z79.1 Long term (current) use of non-steroidal anti-inflammatories (NSAID); Z79.4 Long term (current) use of insulin; Z79.899 Other long term (current) drug therapy; Z88.0 Allergy status to penicillin; Z88.2 Allergy status to sulfonamides; Z88.5 Allergy status to narcotic agent; Z88.8 Allergy status to other drugs, medicaments and biological substances; Z91.018 Allergy to other foods; Z91.041 Radiographic dye allergy status; Z86.69 Personal history of other diseases of the nervous system and sense organs; Z90.49 Acquired absence of other specified parts of digestive tract; Z82.49 Family history of ischemic heart disease and other diseases of the circulatory system; Z84.1 Family history of disorders of kidney and ureter; Z98.890 Other specified postprocedural states
CPT/HCPCS: 36415; 80053; 82150; 83690; 85025; 81001; 74018; 99284; 96374; 96375; 96376; 96361; J2270; J2405

== ENCOUNTER 2018-02-05 00:52 | Emergency (ER) | payer OTHER ==
[2018-02-05] MEDS ORDERED: MORPHINE SULFATE 4 MG/ML SYRINGE IV STA ×2 (02:04→06:16)
[2018-02-05] MEDS ORDERED: ONDANSETRON 4 MG/2 ML VIAL IVP STA (02:04)
[2018-02-05] MEDS ORDERED: SODIUM CHLORIDE 0.9% 1,000 ML IV STA (02:04)
[2018-02-05 02:35] LABS: HCT 37.4 % (34.0-46.0); HGB 12.5 gm/dL (11.4-16.0); MCH 27.6 pg (25.0-35.0); MCHC 33.5 g/dL (31.0-37.0); MCV 82.5 fL (80.0-100.0); Mean Platelet Volume 6.3; Platelet Count 307 k/uL (150-450); RBC 4.54 m/uL (3.80-5.40); RDW 14.5 % (11.5-15.5); WBC 12.8 k/uL (3.8-10.6)
[2018-02-05 02:37] LABS: Appearance,Urine Cloudy (Clear); Bilirubin,Urine Negative (Negative); Blood,Urine Large (Negative); Color,Urine Yellow; Glucose,Urine (UA) 2+ (Negative); Ketones,Urine 1+ (Negative); Leukocyte Esterase,Urine Negative (Negative); Mucus,Urine Occasional /hpf; Nitrite,Urine Negative (Negative); PH, Urine 5.5 (5.0-8.0); Protein,Urine 1+ (Negative); RBC,Urine >182 /hpf (0-5); Specific Gravity,Urine 1.022 (1.001-1.035); Squamous Epithelial Cell,Urine 9 /hpf (0-4); Urobilinogen,Urine <2.0 mg/dL (<2.0); WBC,Urine 16 /hpf (0-5)
[2018-02-05 02:40] LABS: ALT 44 U/L (9-52); AST 24 U/L (14-36); Albumin 4.1 g/dL (3.5-5.0); Alkaline Phosphatase 82 U/L (38-126); Amylase 56 U/L (30-110); Anion Gap 9 mmol/L; Blood Urea Nitrogen 15 mg/dL (7-17); Calcium 9.7 mg/dL (8.4-10.2); Carbon Dioxide 19 mmol/L (22-30); Chloride 108 mmol/L (98-107); Glucose 175 mg/dL (74-99); Lipase 243 U/L (23-300); Potassium 4.3 mmol/L (3.5-5.1); Sodium 136 mmol/L (137-145); Total Bilirubin 0.3 mg/dL (0.2-1.3); Total Protein 6.8 g/dL (6.3-8.2)
[2018-02-05 03:00] LABS: Eosinophils # (M) 0.13 k/uL (0-0.7); Lymphocytes # (M) 3.84 k/uL (1.0-4.8); Monocytes # (M) 0.38 k/uL (0-1.0); Neutrophils # (M) 8.45 k/uL (1.3-7.7); Neutrophils % (M) 66 %; Nucleated Red Blood Cells 0 /100 WBC (0-0); Total Cells Counted 100
--- NOTE | 2018-02-05 03:16 | ED ---
Abdominal Pain HPI - General Source: patient Mode of arrival: ambulatory Limitations: no limitations <Jennifer Medina - Last Filed: 02/05/18 03:13> <Rafat Churchill - Last Filed: 02/05/18 06:23> - General Chief Complaint: Abdominal Pain Stated Complaint: kidney stone Time Seen by Provider: 02/05/18 01:39 - History of Present Illness Initial Comments: 42-year-old female patient presents the emergency department today for complaints of left flank pain. Patient is well-known to our facility does have an extensive history of kidney stones and chronic abdominal pain. Patient was seen and evaluated here 4 days ago for the same symptoms. Diagnosed with urinary tract infection as well as kidney stone and discharged home to follow- up with urology. Patient states that her symptoms have continued, she has had no improvement and cannot see the urologist until 02/13/2018. Patient states she continues to have severe left flank pain that radiates into her left lower quadrant abdomen. She is having dysuria and hematuria. Reports that she has been having fevers as high as 101.2F. Patient states she is nauseated and has been vomiting. Patient does take Percocet, Toradol, and ibuprofen at home, states she has taken all these without relief of her symptoms. She has been taking Flomax. Patient denies any recent rash, fever, chills, shortness breath, chest pain, diarrhea, constipation, numbness, tingling, dizziness, weakness, headache, visual changes, or any other complaints. (Jennifer Medina) - Related Data Home Medications Medication Instructions Recorded Confirmed Insulin Glargine,Hum.rec.anlog 15 unit SQ HS 07/24/17 02/05/18 [Basaglar Kwikpen U-100] Insulin Glulisine [Apidra] 5 unit SQ AC-TID 07/29/17 02/05/18 Loratadine [Claritin] 10 mg PO HS 08/19/17 02/05/18 OLANZapine [ZyPREXA] 10 mg PO BID@0900,2200 08/19/17 02/05/18 FLUoxetine HCL [PROzac] 40 mg PO DAILY 08/29/17 02/05/18 Meloxicam 7.5 mg PO HS 08/29/17 02/05/18 Omeprazole 20 mg PO DAILY 08/29/17 02/05/18 hydrOXYzine HCL [Atarax] 25 mg PO TID 08/29/17 02/05/18 oxyCODONE-APAP 10-325MG [Percocet 1 tab PO QID PRN 08/29/17 02/05/18 10-325 mg] OXcarbazepine [Trileptal] 300 mg PO BID 02/05/18 02/05/18 Previous Rx's Medication Instructions Recorded Imipramine [Tofranil] 25 mg PO HS #30 tab 08/02/17 Lisinopril [Zestril] 10 mg PO HS tab 08/02/17 SUMAtriptan SUCCINATE [Imitrex] 100 mg PO DAILY PRN tab 08/02/17 metFORMIN HCL [Glucophage] 1,000 mg PO BID-W/MEALS tab 08/02/17 Ondansetron Odt [Zofran Odt] 4 mg PO Q8HR PRN #12 tab 11/26/17 Ciprofloxacin HCl [Cipro] 500 mg PO Q12HR #14 tablet 02/01/18 Fluconazole [Diflucan] 150 mg PO ONCE #2 tab 02/01/18 Tamsulosin HCl [Flomax] 0.4 mg PO DAILY #7 cap 02/01/18 Allergies Allergy/AdvReac Type Severity Reaction Status Date / Time bupropion HCl Allergy Rash/Hives Verified 02/01/18 00:35 [From Wellbutrin] fentanyl Allergy Swelling Verified 02/01/18 00:35 hydrocodone Allergy Itching Verified 02/01/18 00:35 Iodinated Contrast- Oral and Allergy Anaphylaxis Verified 02/01/18 00:35 IV Dye [Iodinated Contrast Media - IV Dye] orange juice [[place]] Allergy Rash/Hives Verified 02/01/18 00:35 Sulfa (Sulfonamide Allergy Rash/Hives Verified 02/01/18 00:35 Antibiotics) Penicillins AdvReac Nausea & Verified 02/01/18 00:35 Vomiting Review of Systems ROS Other: All systems not noted in ROS Statement are negative. <Jennifer Medina - Last Filed: 02/05/18 03:13> ROS Other: All systems not noted in ROS Statement are negative. <Rafat Churchill - Last Filed: 02/05/18 06:23> ROS Statement: Those systems with pertinent positive or pertinent negative responses have been documented in the HPI. 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 History of Any Multi-Drug Resistant Organisms: None Reported Date of last positivie culture/infection: 05/14/17 MDRO Source:: ESBL URINE Past Surgical History: Bladder Surgery, Section, Cholecystectomy, Hysterectomy, Orthopedic Surgery, Tubal Ligation Additional Past Surgical History / Comment(s): R ovarian cystectomy, laparoscopic surgery for L ovary that had attached to the bowel, D&C, numerous lithotripsies, nephroscopies, cystoscopies and stents to ureters-none in place at this time, L robotic pyeloplasty with post op infection around kidney which then required a picc line/later removed (pt states was not MRSA), L rotator cuff repair, L wrist tendon surgery, colonoscopy Past Anesthesia/Blood Transfusion Reactions: Family History of Problems w/ Anesthesia Additional Past Anesthesia/Blood Transfusion Reaction / Comment(s): dad-hard time waking up due to enzyme problems in liver Past Psychological History: ADD/ADHD, Anxiety, Bipolar, Depression, PTSD Smoking Status: Current every day smoker Past Alcohol Use History: None Reported Past Drug Use History: None Reported - Past Family History Brother(s) Family Medical History: Cancer Additional Family Medical History / Comment(s): testicular Father Family Medical History: Coronary Artery Disease (CAD), CVA/TIA, Diabetes Mellitus, Renal Disease Additional Family Medical History / Comment(s): GLAUCOMA,NEUROPATHY HAD TRIPLE CABG, at 56yrs from renal disease. Mother Family Medical History: Hyperlipidemia Additional Family Medical History / Comment(s): DDD, HAD 3 vessel CABG AGE 54. <Jennifer Medina - Last Filed: 02/05/18 03:13> General Exam Limitations: no limitations General appearance: alert, in no apparent distress, other (This is a well- developed, well-nourished adult female patient in no acute distress. Vital signs upon presentation are temperature 98.0F, pulse 122, respirations 20, blood pressure 155/93, pulse ox 98% on room air.) Eye exam: Present: normal appearance, PERRL, EOMI. Absent: scleral icterus, conjunctival injection, periorbital swelling ENT exam: Present: normal exam, normal oropharynx, mucous membranes moist Respiratory exam: Present: normal lung sounds bilaterally. Absent: respiratory distress, wheezes, rales, rhonchi, stridor Cardiovascular Exam: Present: regular rate, normal rhythm, normal heart sounds. Absent: systolic murmur, diastolic murmur, rubs, gallop, clicks GI/Abdominal exam: Present: soft, normal bowel sounds. Absent: distended, tenderness, guarding, rebound, rigid Back exam: Present: normal inspection, CVA tenderness (L). Absent: CVA tenderness (R) Neurological exam: Present: alert, oriented X3, CN II-XII intact Psychiatric exam: Present: normal affect, normal mood Skin exam: Present: warm, dry, intact, normal color. Absent: rash <Jennifer Medina - Last Filed: 02/05/18 03:13> Vital Signs 02/05/18 02/05/18 02/05/18 00:58 04:15 05:20 Temperature 98.0 F Pulse Rate 122 H 72 84 Respiratory 20 17 17 Rate Blood Pressure 155/93 122/69 111/81 O2 Sat by Pulse 98 99 100 Oximetry Medical Decision Making - Lab Data Result diagrams: 02/05/18 02:15 02/05/18 02:15 <Jennifer Medina - Last Filed: 02/05/18 03:13> - Lab Data Result diagrams: 02/05/18 02:15 02/05/18 02:15 <Rafat Churchill - Last Filed: 02/05/18 06:23> - Lab Data Lab Results 02/05/18 02/05/18 02/05/18 Range/Units 01:30 02:15 02:15 WBC 12.8 H (3.8-10.6) k/uL RBC 4.54 (3.80-5.40) m/uL Hgb 12.5 (11.4-16.0) gm/dL Hct 37.4 (34.0-46.0) % MCV 82.5 (80.0-100.0) fL MCH 27.6 (25.0-35.0) pg MCHC 33.5 (31.0-37.0) g/dL RDW 14.5 (11.5-15.5) % Plt Count 307 (150-450) k/uL Neutrophils % (Manual) 66 % Lymphocytes % (Manual) 30 % Monocytes % (Manual) 3 % Eosinophils % (Manual) 1 % Neutrophils # (Manual) 8.45 H (1.3-7.7) k/uL Lymphocytes # (Manual) 3.84 (1.0-4.8) k/uL Monocytes # (Manual) 0.38 (0-1.0) k/uL Eosinophils # (Manual) 0.13 (0-0.7) k/uL Nucleated RBCs 0 (0-0) /100 WBC Manual Slide Review Performed Sodium 136 L (137-145) mmol/L Potassium 4.3 (3.5-5.1) mmol/L Chloride 108 H (98-107) mmol/L Carbon Dioxide 19 L (22-30) mmol/L Anion Gap 9 mmol/L BUN 15 (7-17) mg/dL Creatinine 0.60 (0.52-1.04) mg/dL Est GFR (CKD-EPI)AfAm >90 (>60 ml/min/1.73 sqM) Est GFR (CKD-EPI)NonAf >90 (>60 ml/min/1.73 sqM) Glucose 175 H (74-99) mg/dL Plasma Lactic Acid Brant (0.7-2.0) mmol/L Calcium 9.7 (8.4-10.2) mg/dL Total Bilirubin 0.3 (0.2-1.3) mg/dL AST 24 (14-36) U/L ALT 44 (9-52) U/L Alkaline Phosphatase 82 (38-126) U/L Total Protein 6.8 (6.3-8.2) g/dL Albumin 4.1 (3.5-5.0) g/dL Amylase 56 (30-110) U/L Lipase 243 (23-300) U/L Urine Color Yellow Urine Appearance Cloudy H (Clear) Urine pH 5.5 (5.0-8.0) Ur Specific [place] 1.022 (1.001-1.035) Urine Protein 1+ H (Negative) Urine Glucose (UA) 2+ H (Negative) Urine Ketones 1+ H (Negative) Urine Blood Large H (Negative) Urine Nitrite Negative (Negative) Urine Bilirubin Negative (Negative) Urine Urobilinogen <2.0 (<2.0) mg/dL Ur Leukocyte Esterase Negative (Negative) Urine RBC >182 H (0-5) /hpf Urine WBC 16 H (0-5) /hpf Ur Squamous Epith Cells 9 H (0-4) /hpf Urine Mucus Occasional H (None) /hpf 02/05/18 Range/Units 04:30 WBC (3.8-10.6) k/uL RBC (3.80-5.40) m/uL Hgb (11.4-16.0) gm/dL Hct (34.0-46.0) % MCV (80.0-100.0) fL MCH (25.0-35.0) pg MCHC (31.0-37.0) g/dL RDW (11.5-15.5) % Plt Count (150-450) k/uL Neutrophils % (Manual) % Lymphocytes % (Manual) % Monocytes % (Manual) % Eosinophils % (Manual) % Neutrophils # (Manual) (1.3-7.7) k/uL Lymphocytes # (Manual) (1.0-4.8) k/uL Monocytes # (Manual) (0-1.0) k/uL Eosinophils # (Manual) (0-0.7) k/uL Nucleated RBCs (0-0) /100 WBC Manual Slide Review Sodium (137-145) mmol/L Potassium (3.5-5.1) mmol/L Chloride (98-107) mmol/L Carbon Dioxide (22-30) mmol/L Anion Gap mmol/L BUN (7-17) mg/dL Creatinine (0.52-1.04) mg/dL Est GFR (CKD-EPI)AfAm (>60 ml/min/1.73 sqM) Est GFR (CKD-EPI)NonAf (>60 ml/min/1.73 sqM) Glucose (74-99) mg/dL Plasma Lactic Acid Brant 1.8 (0.7-2.0) mmol/L Calcium (8.4-10.2) mg/dL Total Bilirubin (0.2-1.3) mg/dL AST (14-36) U/L ALT (9-52) U/L Alkaline Phosphatase (38-126) U/L Total Protein (6.3-8.2) g/dL Albumin (3.5-5.0) g/dL Amylase (30-110) U/L Lipase (23-300) U/L Urine Color Urine Appearance (Clear) Urine pH (5.0-8.0) Ur Specific [place] (1.001-1.035) Urine Protein (Negative) Urine Glucose (UA) (Negative) Urine Ketones (Negative) Urine Blood (Negative) Urine Nitrite (Negative) Urine Bilirubin (Negative) Urine Urobilinogen (<2.0) mg/dL Ur Leukocyte Esterase (Negative) Urine RBC (0-5) /hpf Urine WBC (0-5) /hpf Ur Squamous Epith Cells (0-4) /hpf Urine Mucus (None) /hpf Disposition <Jennifer Medina - Last Filed: 02/05/18 03:13> Is patient prescribed a controlled substance at d/c from ED?: No <Rafat Churchill - Last Filed: 02/05/18 06:23> Clinical Impression: UTI (urinary tract infection) Disposition: HOME SELF-CARE Condition: Good Instructions: Urinary Tract Infection in Women (ED) Referrals: Melchor Stevens MD [Primary Care Provider] - 1-2 days
[2018-02-05] MEDS ORDERED: MORPHINE SULFATE 4 MG/ML SYRINGE IVP STA (04:00)
[2018-02-05 07:03] VITALS: BP 133/81; PULSE 89; RESP 16; TEMP 97.4
== END 2018-02-05 07:03 | disposition home or self-care (01) ==
LOC: EC 00:52
DX: N39.0 Urinary tract infection, site not specified (principal); R10.32 Left lower quadrant pain; R11.2 Nausea with vomiting, unspecified; E11.9 Type 2 diabetes mellitus without complications; K21.9 Gastro-esophageal reflux disease without esophagitis; I10 Essential (primary) hypertension; F90.9 Attention-deficit hyperactivity disorder, unspecified type; F31.9 Bipolar disorder, unspecified; F41.9 Anxiety disorder, unspecified; F43.10 Post-traumatic stress disorder, unspecified; F17.200 Nicotine dependence, unspecified, uncomplicated; Z79.4 Long term (current) use of insulin; Z79.1 Long term (current) use of non-steroidal anti-inflammatories (NSAID); Z79.899 Other long term (current) drug therapy; Z88.5 Allergy status to narcotic agent; Z88.8 Allergy status to other drugs, medicaments and biological substances; Z91.041 Radiographic dye allergy status; Z88.0 Allergy status to penicillin; Z88.2 Allergy status to sulfonamides; Z91.018 Allergy to other foods; Z90.49 Acquired absence of other specified parts of digestive tract; Z90.710 Acquired absence of both cervix and uterus; Z98.51 Tubal ligation status
CPT/HCPCS: 36415; 80053; 82150; 83605; 83690; 85025; 81001; 87040; 87086; 99284; 96374; 96375; 96376 ×2; 96361 ×4; J2270; J2405

== ENCOUNTER 2018-02-06 22:58 | Emergency (ER) | payer OTHER ==
[2018-02-07] MEDS ORDERED: METOCLOPRAMIDE 5 MG/ML 2 ML VIAL IVP STA (00:20)
[2018-02-07] MEDS ORDERED: MORPHINE SULFATE 4 MG/ML SYRINGE IVP STA (00:20)
[2018-02-07] MEDS ORDERED: SODIUM CHLORIDE 0.9% 1,000 ML IV STA (00:20)
[2018-02-07] MEDS ORDERED: HYDROmorphone 0.5 MG/0.5 ML SYRINGE IVP STA (00:43)
--- NOTE | 2018-02-07 02:10 | ED ---
General Adult HPI - General Chief complaint: Abdominal Pain Stated complaint: kidney stone Time Seen by Provider: 02/06/18 23:58 Source: patient, RN notes reviewed Mode of arrival: ambulatory Limitations: no limitations - History of Present Illness Initial comments: 42-year-old female presents to the emergency department for a chief complaint of left flank pain times one week. Patient states she has a history of kidney stones in this is consistent with previous episodes. Patient has been seen here multiple times for kidney stones in the past as well. She has also been seen 3 times for kidney stone this week. Patient states she contacted the urologist about the pain and they stated to come to the emergency department for IV fluids and additional pain meds if needed. Patient states she did pass a small stone today and brought it to the emergency department in a bag. Patient states she is still having pain in his noticed blood in her urine. Patient states she has had mild fevers on and off for the past week. Patient denies any abdominal pain. Patient denies any nausea or vomiting. Patient denies any diarrhea. Patient is currently taking Percocet and Flomax. Patient has no other complaints at this time including shortness of breath, chest pain, abdominal pain, headache, or visual changes. - Related Data Home Medications Medication Instructions Recorded Confirmed Insulin Glargine,Hum.rec.anlog 15 unit SQ HS 07/24/17 02/05/18 [Basaglar Kwikpen U-100] Insulin Glulisine [Apidra] 5 unit SQ AC-TID 07/29/17 02/05/18 Loratadine [Claritin] 10 mg PO HS 08/19/17 02/05/18 OLANZapine [ZyPREXA] 10 mg PO BID@0900,2200 08/19/17 02/05/18 FLUoxetine HCL [PROzac] 40 mg PO DAILY 08/29/17 02/05/18 Meloxicam 7.5 mg PO HS 08/29/17 02/05/18 Omeprazole 20 mg PO DAILY 08/29/17 02/05/18 hydrOXYzine HCL [Atarax] 25 mg PO TID 08/29/17 02/05/18 oxyCODONE-APAP 10-325MG [Percocet 1 tab PO QID PRN 08/29/17 02/05/18 10-325 mg] OXcarbazepine [Trileptal] 300 mg PO BID 02/05/18 02/05/18 Previous Rx's Medication Instructions Recorded Imipramine [Tofranil] 25 mg PO HS #30 tab 08/02/17 Lisinopril [Zestril] 10 mg PO HS tab 08/02/17 SUMAtriptan SUCCINATE [Imitrex] 100 mg PO DAILY PRN tab 08/02/17 metFORMIN HCL [Glucophage] 1,000 mg PO BID-W/MEALS tab 08/02/17 Ondansetron Odt [Zofran Odt] 4 mg PO Q8HR PRN #12 tab 11/26/17 Ciprofloxacin HCl [Cipro] 500 mg PO Q12HR #14 tablet 02/01/18 Fluconazole [Diflucan] 150 mg PO ONCE #2 tab 02/01/18 Tamsulosin HCl [Flomax] 0.4 mg PO DAILY #7 cap 02/01/18 Allergies Allergy/AdvReac Type Severity Reaction Status Date / Time bupropion HCl Allergy Rash/Hives Verified 02/06/18 23:12 [From Wellbutrin] fentanyl Allergy Swelling Verified 02/06/18 23:12 hydrocodone Allergy Itching Verified 02/06/18 23:12 Iodinated Contrast- Oral and Allergy Anaphylaxis Verified 02/06/18 23:12 IV Dye [Iodinated Contrast Media - IV Dye] orange juice [[place]] Allergy Rash/Hives Verified 02/06/18 23:12 Sulfa (Sulfonamide Allergy Rash/Hives Verified 02/06/18 23:12 Antibiotics) Penicillins AdvReac Nausea & Verified 02/06/18 23:12 Vomiting Review of Systems ROS Statement: Those systems with pertinent positive or pertinent negative responses have been documented in the HPI. ROS Other: All systems not noted in ROS Statement are negative. 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 History of Any Multi-Drug Resistant Organisms: None Reported Date of last positivie culture/infection: 05/14/17 MDRO Source:: ESBL URINE Past Surgical History: Bladder Surgery, Section, Cholecystectomy, Hysterectomy, Orthopedic Surgery, Tubal Ligation Additional Past Surgical History / Comment(s): R ovarian cystectomy, laparoscopic surgery for L ovary that had attached to the bowel, D&C, numerous lithotripsies, nephroscopies, cystoscopies and stents to ureters-none in place at this time, L robotic pyeloplasty with post op infection around kidney which then required a picc line/later removed (pt states was not MRSA), L rotator cuff repair, L wrist tendon surgery, colonoscopy Past Anesthesia/Blood Transfusion Reactions: Family History of Problems w/ Anesthesia Additional Past Anesthesia/Blood Transfusion Reaction / Comment(s): dad-hard time waking up due to enzyme problems in liver Past Psychological History: ADD/ADHD, Anxiety, Bipolar, Depression, PTSD Smoking Status: Current every day smoker Past Alcohol Use History: None Reported Past Drug Use History: None Reported - Past Family History Brother(s) Family Medical History: Cancer Additional Family Medical History / Comment(s): testicular Father Family Medical History: Coronary Artery Disease (CAD), CVA/TIA, Diabetes Mellitus, Renal Disease Additional Family Medical History / Comment(s): GLAUCOMA,NEUROPATHY HAD TRIPLE CABG, at 56yrs from renal disease. Mother Family Medical History: Hyperlipidemia Additional Family Medical History / Comment(s): DDD, HAD 3 vessel CABG AGE 54. General Exam Limitations: no limitations General appearance: alert, in no apparent distress Head exam: Present: atraumatic, normocephalic, normal inspection Eye exam: Present: normal appearance, PERRL, EOMI. Absent: scleral icterus, conjunctival injection, periorbital swelling ENT exam: Present: normal exam, mucous membranes moist Neck exam: Present: normal inspection. Absent: tenderness, meningismus, lymphadenopathy Respiratory exam: Present: normal lung sounds bilaterally. Absent: respiratory distress, wheezes, rales, rhonchi, stridor Cardiovascular Exam: Present: regular rate, normal rhythm, normal heart sounds. Absent: systolic murmur, diastolic murmur, rubs, gallop, clicks GI/Abdominal exam: Present: soft, normal bowel sounds. Absent: distended, tenderness, guarding, rebound, rigid Back exam: Present: CVA tenderness (L). Absent: CVA tenderness (R), vertebral tenderness Neurological exam: Present: alert, oriented X3, CN II-XII intact Psychiatric exam: Present: normal affect, normal mood Course Vital Signs 02/06/18 23:09 Temperature 98 F Pulse Rate 127 H Respiratory 20 Rate Blood Pressure 127/76 O2 Sat by Pulse 98 Oximetry Medical Decision Making - Medical Decision Making 42-year-old female presents to the emergency department for a chief complaint of left flank pain x 1 week. Patient states it is due to a kidney stone which she has had multiple times in the past. Patient did bring a kidney stone into the emergency department in a bag and showed it to me. Patient has some mild left CVA tenderness. No abdominal tenderness. Patient states she has had blood in the urine which was demonstrated on UA yesterday. Patient admits to some nausea and vomiting due to pain but has not vomited in the emergency apartment. Patient admits to having a fever over the past few days but has not had one in the emergency department throughout multiple visits. Patient was given Cipro which she is still taking. Patient did have blood work done yesterday when she was seen. CBC had shown a white count of 12.6 at that time. CMP was unremarkable. Urine and blood were cultured. Blood showed no growth. Urine showed skin and genital bacteria growth only. At this time discussed with patient that we can treat her pain and patient agrees with this. She was given morphine and Dilaudid as well as Reglan. Patient is feeling much better at this time. Patient is seeing her primary care provider in 2 days. She will follow up with urology on February 13 at her appointment. She will return to the emergency Department if she has any worsening symptoms. Disposition Clinical Impression: Left flank pain, Kidney stone on left side Disposition: HOME SELF-CARE Condition: Good Instructions: Kidney Stones (ED), Flank Pain (ED) Additional Instructions: Please continue to take Toradol, Flomax, Percocet for pain. Please follow-up with urology as directed previously. Follow-up with your primary care provider at your scheduled appointment in 2 days. Return to the emergency department if you have any worsening symptoms. Is patient prescribed a controlled substance at d/c from ED?: No Referrals: Melchor Stevens MD [Primary Care Provider] - 1-2 days Time of Disposition: 02:07
[2018-02-07 02:18] VITALS: BP 125/67; PULSE 99; RESP 19; TEMP 98.9
== END 2018-02-07 02:21 | disposition home or self-care (01) ==
LOC: EC 22:58
DX: N20.0 Calculus of kidney (principal); E11.9 Type 2 diabetes mellitus without complications; K21.9 Gastro-esophageal reflux disease without esophagitis; G43.909 Migraine, unspecified, not intractable, without status migrainosus; F41.9 Anxiety disorder, unspecified; F32.9 Major depressive disorder, single episode, unspecified; F43.10 Post-traumatic stress disorder, unspecified; F17.200 Nicotine dependence, unspecified, uncomplicated; Z90.49 Acquired absence of other specified parts of digestive tract; Z90.710 Acquired absence of both cervix and uterus; Z98.51 Tubal ligation status; Z87.19 Personal history of other diseases of the digestive system; Z79.4 Long term (current) use of insulin; Z79.1 Long term (current) use of non-steroidal anti-inflammatories (NSAID); Z79.899 Other long term (current) drug therapy; Z88.8 Allergy status to other drugs, medicaments and biological substances; Z88.5 Allergy status to narcotic agent; Z91.041 Radiographic dye allergy status; Z91.018 Allergy to other foods; Z88.2 Allergy status to sulfonamides; Z88.0 Allergy status to penicillin
CPT/HCPCS: 99284; 96374; 96375 ×2; 96361 ×2; J2270; J2765; J1170

== ENCOUNTER 2018-02-16 22:35 | Emergency (ER) | payer OTHER ==
[2018-02-16 22:39] VITALS: RESP 18
[2018-02-16 23:08] LABS: Appearance,Urine Clear (Clear); Bilirubin,Urine Negative (Negative); Blood,Urine Large (Negative); Color,Urine Light Red; Glucose,Urine (UA) Negative (Negative); Ketones,Urine Negative (Negative); Leukocyte Esterase,Urine Negative (Negative); Mucus,Urine Rare /hpf; Nitrite,Urine Negative (Negative); Protein,Urine Negative (Negative); RBC,Urine >182 /hpf (0-5); Specific Gravity,Urine 1.013 (1.001-1.035); Squamous Epithelial Cell,Urine <1 /hpf (0-4); Urobilinogen,Urine <2.0 mg/dL (<2.0); WBC,Urine 11 /hpf (0-5)
[2018-02-16] MEDS ORDERED: ONDANSETRON 4 MG/2 ML VIAL IVP STA (23:18)
[2018-02-16] MEDS ORDERED: KETOROLAC 30 MG/ML 1 ML VIAL IVP STA (23:18)
[2018-02-16] MEDS ORDERED: SODIUM CHLORIDE 0.9% 2,000 ML IV STA (23:18)
--- NOTE | 2018-02-16 23:26 | ED ---
General Adult HPI - General Source: patient, RN notes reviewed Mode of arrival: ambulatory Limitations: no limitations <Brandon Macedo P - Last Filed: 02/17/18 03:45> <Linda Ga P - Last Filed: 02/17/18 06:57> - General Chief complaint: Abdominal Pain Stated complaint: KIDNEY STONES Time Seen by Provider: 02/16/18 22:52 - History of Present Illness Initial comments: 42-year-old female presents to the emergency department for a chief complaint of kidney stones 3 weeks. Patient states she was seen by urologist 3 days ago for kidney stones and was told she would have to pass them on her own. Patient states the pain is consistent with a kidney stones today. However she states that the urologist told her if she had a fever she should come back to the emergency department. Patient states her temperature was 103 today so she decided to be seen. Patient took Tylenol about 2 hours ago. Patient states she has also been vomiting due to the pain. She states she is on Percocet at home for pain. Patient denies any fevers before today. Patient complains of dysuria as well. Patient denies any diarrhea and states she is having normal bowel movements. Patient has no other complaints at this time including shortness of breath, chest pain, abdominal pain, nausea or vomiting, headache, or visual changes. (Brandon Macedo) - Related Data Home Medications Medication Instructions Recorded Confirmed Insulin Glargine,Hum.rec.anlog 15 unit SQ HS 07/24/17 02/05/18 [Basaglar Kwikpen U-100] Insulin Glulisine [Apidra] 5 unit SQ AC-TID 07/29/17 02/05/18 Loratadine [Claritin] 10 mg PO HS 08/19/17 02/05/18 OLANZapine [ZyPREXA] 10 mg PO BID@0900,2200 08/19/17 02/05/18 FLUoxetine HCL [PROzac] 40 mg PO DAILY 08/29/17 02/05/18 Meloxicam 7.5 mg PO HS 08/29/17 02/05/18 Omeprazole 20 mg PO DAILY 08/29/17 02/05/18 hydrOXYzine HCL [Atarax] 25 mg PO TID 08/29/17 02/05/18 oxyCODONE-APAP 10-325MG [Percocet 1 tab PO QID PRN 08/29/17 02/05/18 10-325 mg] OXcarbazepine [Trileptal] 300 mg PO BID 02/05/18 02/05/18 Previous Rx's Medication Instructions Recorded Imipramine [Tofranil] 25 mg PO HS #30 tab 08/02/17 Lisinopril [Zestril] 10 mg PO HS tab 08/02/17 SUMAtriptan SUCCINATE [Imitrex] 100 mg PO DAILY PRN tab 08/02/17 metFORMIN HCL [Glucophage] 1,000 mg PO BID-W/MEALS tab 08/02/17 Ondansetron Odt [Zofran Odt] 4 mg PO Q8HR PRN #12 tab 11/26/17 Ciprofloxacin HCl [Cipro] 500 mg PO Q12HR #14 tablet 02/01/18 Fluconazole [Diflucan] 150 mg PO ONCE #2 tab 02/01/18 Tamsulosin HCl [Flomax] 0.4 mg PO DAILY #7 cap 02/01/18 Ondansetron [Zofran ODT] 4 mg PO Q8HR PRN #15 tab 02/17/18 Allergies Allergy/AdvReac Type Severity Reaction Status Date / Time bupropion HCl Allergy Rash/Hives Verified 02/16/18 22:39 [From Wellbutrin] fentanyl Allergy Swelling Verified 02/16/18 22:39 hydrocodone Allergy Itching Verified 02/16/18 22:39 Iodinated Contrast- Oral and Allergy Anaphylaxis Verified 02/16/18 22:39 IV Dye [Iodinated Contrast Media - IV Dye] orange juice [[place]] Allergy Rash/Hives Verified 02/16/18 22:39 Sulfa (Sulfonamide Allergy Rash/Hives Verified 02/16/18 22:39 Antibiotics) Penicillins AdvReac Nausea & Verified 02/16/18 22:39 Vomiting Review of Systems ROS Other: All systems not noted in ROS Statement are negative. <Brandon Macedo P - Last Filed: 02/17/18 03:45> ROS Other: All systems not noted in ROS Statement are negative. <Linda Ga P - Last Filed: 02/17/18 06:57> ROS Statement: Those systems with pertinent positive or pertinent negative responses have been documented in the HPI. 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 History of Any Multi-Drug Resistant Organisms: None Reported Date of last positivie culture/infection: 05/14/17 MDRO Source:: ESBL URINE Past Surgical History: Bladder Surgery, Section, Cholecystectomy, Hysterectomy, Orthopedic Surgery, Tubal Ligation Additional Past Surgical History / Comment(s): R ovarian cystectomy, laparoscopic surgery for L ovary that had attached to the bowel, D&C, numerous lithotripsies, nephroscopies, cystoscopies and stents to ureters-none in place at this time, L robotic pyeloplasty with post op infection around kidney which then required a picc line/later removed (pt states was not MRSA), L rotator cuff repair, L wrist tendon surgery, colonoscopy Past Anesthesia/Blood Transfusion Reactions: Family History of Problems w/ Anesthesia Additional Past Anesthesia/Blood Transfusion Reaction / Comment(s): dad-hard time waking up due to enzyme problems in liver Past Psychological History: ADD/ADHD, Anxiety, Bipolar, Depression, PTSD Smoking Status: Current every day smoker Past Alcohol Use History: None Reported Past Drug Use History: None Reported - Past Family History Brother(s) Family Medical History: Cancer Additional Family Medical History / Comment(s): testicular Father Family Medical History: Coronary Artery Disease (CAD), CVA/TIA, Diabetes Mellitus, Renal Disease Additional Family Medical History / Comment(s): GLAUCOMA,NEUROPATHY HAD TRIPLE CABG, at 56yrs from renal disease. Mother Family Medical History: Hyperlipidemia Additional Family Medical History / Comment(s): DDD, HAD 3 vessel CABG AGE 54. <Brandon Macedo P - Last Filed: 02/17/18 03:45> General Exam Limitations: no limitations General appearance: alert, in no apparent distress Head exam: Present: atraumatic, normocephalic, normal inspection Eye exam: Present: normal appearance. Absent: scleral icterus, conjunctival injection ENT exam: Present: normal exam, mucous membranes moist Neck exam: Present: normal inspection, full ROM. Absent: tenderness, meningismus, lymphadenopathy Respiratory exam: Present: normal lung sounds bilaterally. Absent: respiratory distress, wheezes, rales, rhonchi, stridor Cardiovascular Exam: Present: regular rate, normal rhythm, normal heart sounds. Absent: systolic murmur, diastolic murmur, rubs, gallop, clicks GI/Abdominal exam: Present: soft, normal bowel sounds. Absent: distended, tenderness, guarding, rebound, rigid Back exam: Present: CVA tenderness (L) (Significant left CVA tenderness.). Absent: CVA tenderness (R) Neurological exam: Present: alert, oriented X3, CN II-XII intact Psychiatric exam: Present: normal affect, normal mood <Brandon Macedo P - Last Filed: 02/17/18 03:45> Vital Signs 02/16/18 02/16/18 02/17/18 22:36 23:39 00:02 Temperature 97.8 F Pulse Rate 116 H 96 109 H Respiratory 18 18 18 Rate Blood Pressure 142/82 120/67 132/70 O2 Sat by Pulse 99 99 100 Oximetry 02/17/18 02/17/18 02/17/18 00:14 00:59 02:02 Temperature 98.7 F Pulse Rate 103 H 90 101 H Respiratory 18 18 18 Rate Blood Pressure 108/60 121/72 105/56 O2 Sat by Pulse 100 100 97 Oximetry Medical Decision Making - Lab Data Result diagrams: 02/16/18 23:09 02/16/18 23:09 <Brandon Macedo P - Last Filed: 02/17/18 03:45> - Lab Data Result diagrams: 02/16/18 23:09 02/16/18 23:09 <Linda Ga P - Last Filed: 02/17/18 06:57> - Medical Decision Making 42-year-old female presents to the emergency department for a chief complaint of left flank pain. Patient has known kidney stones and saw a urologist on Sunday and was told she would have to pass them on her own. Patient states he told her that if she developed fever she should come back to the emergency department. Patient states that today she had a fever. Patient states she has been vomiting throughout the day due to the pain. She takes Percocet at home. Patient is slightly tachycardic on presentation to the emergency department likely attributed to her pain. Afebrile on presentation. Patient said the tachycardic in the emergency department which is consistent with past visit vitals. Heart rate did decrease to 90 before discharge. On exam patient has left CVA tenderness. No abdominal tenderness. Urine does not show any evidence of infection or evidence of a septic stone. Patient does have a mild white count of 10.8. Patient does have an anion gap of 17 as well as an elevated lactic acid at 3.2. This is likely related to starvation ketosis and excessive vomiting throughout the day. Patient was given 2 L of saline as well as D5. At this time CAT scan was not ordered as patient already has known kidney stones and pain is consistent. Lactic acid did decrease from 3.2-1.5 after receiving fluids. Patient is feeling better and ready to go home at this point. Pain is controlled. Patient has an appointment with her primary care provider in the next couple of days that she will follow up with. Patient will return to the emergency room if she has any worsening symptoms. (Brandon Macedo ) I was available for consultation in the emergency department. The history and physical exam were done by the midlevel provider. I was consulted for this patient's care. I reviewed the case with the midlevel provider and based on their presentation of the patient, I agree with the assessment, medical decision making and plan of care as documented. (Linda Ga) - Lab Data Lab Results 02/16/18 02/16/18 02/16/18 Range/Units 22:49 22:49 23:09 WBC (3.8-10.6) k/uL RBC (3.80-5.40) m/uL Hgb (11.4-16.0) gm/dL Hct (34.0-46.0) % MCV (80.0-100.0) fL MCH (25.0-35.0) pg MCHC (31.0-37.0) g/dL RDW (11.5-15.5) % Plt Count (150-450) k/uL Neutrophils % % Lymphocytes % % Monocytes % % Eosinophils % % Basophils % % Neutrophils # (1.3-7.7) k/uL Lymphocytes # (1.0-4.8) k/uL Monocytes # (0-1.0) k/uL Eosinophils # (0-0.7) k/uL Basophils # (0-0.2) k/uL Manual Slide Review Large Platelets Poikilocytosis (manual Anisocytosis (manual) Sodium 136 L (137-145) mmol/L Potassium 4.8 (3.5-5.1) mmol/L Chloride 99 (98-107) mmol/L Carbon Dioxide 20 L (22-30) mmol/L Anion Gap 17 mmol/L BUN 15 (7-17) mg/dL Creatinine 0.70 (0.52-1.04) mg/dL Est GFR (CKD-EPI)AfAm >90 (>60 ml/min/1.73 sqM) Est GFR (CKD-EPI)NonAf >90 (>60 ml/min/1.73 sqM) Glucose 188 H (74-99) mg/dL Lactic Ac Sepsis Rflx Plasma Lactic Acid Brant (0.7-2.0) mmol/L Calcium 10.2 (8.4-10.2) mg/dL Total Bilirubin 0.4 (0.2-1.3) mg/dL AST 33 (14-36) U/L ALT 47 (9-52) U/L Alkaline Phosphatase 106 (38-126) U/L Total Protein 8.1 (6.3-8.2) g/dL Albumin 5.1 H (3.5-5.0) g/dL Amylase 59 (30-110) U/L Lipase 142 (23-300) U/L Urine Color Light Red Urine Appearance Clear (Clear) Urine pH 5.0 (5.0-8.0) Ur Specific [place] 1.013 (1.001-1.035) Urine Protein Negative (Negative) Urine Glucose (UA) Negative (Negative) Urine Ketones Negative (Negative) Urine Blood Large H (Negative) Urine Nitrite Negative (Negative) Urine Bilirubin Negative (Negative) Urine Urobilinogen <2.0 (<2.0) mg/dL Ur Leukocyte Esterase Negative (Negative) Urine RBC >182 H (0-5) /hpf Urine WBC 11 H (0-5) /hpf Ur Squamous Epith Cells <1 (0-4) /hpf Urine Mucus Rare H (None) /hpf Urine HCG, Qual Not Detected (Not Detectd) 02/16/18 02/16/18 02/16/18 Range/Units 23:09 23:09 23:59 WBC 10.8 H (3.8-10.6) k/uL RBC 4.97 (3.80-5.40) m/uL Hgb 13.6 (11.4-16.0) gm/dL Hct 42.3 (34.0-46.0) % MCV 85.0 (80.0-100.0) fL MCH 27.3 (25.0-35.0) pg MCHC 32.1 (31.0-37.0) g/dL RDW 14.4 (11.5-15.5) % Plt Count 397 (150-450) k/uL Neutrophils % 39 % Lymphocytes % 51 % Monocytes % 4 % Eosinophils % 4 % Basophils % 1 % Neutrophils # 4.2 (1.3-7.7) k/uL Lymphocytes # 5.5 H (1.0-4.8) k/uL Monocytes # 0.4 (0-1.0) k/uL Eosinophils # 0.4 (0-0.7) k/uL Basophils # 0.1 (0-0.2) k/uL Manual Slide Review Performed Large Platelets Present Poikilocytosis (manual Present Anisocytosis (manual) Present Sodium (137-145) mmol/L Potassium (3.5-5.1) mmol/L Chloride (98-107) mmol/L Carbon Dioxide (22-30) mmol/L Anion Gap mmol/L BUN (7-17) mg/dL Creatinine (0.52-1.04) mg/dL Est GFR (CKD-EPI)AfAm (>60 ml/min/1.73 sqM) Est GFR (CKD-EPI)NonAf (>60 ml/min/1.73 sqM) Glucose (74-99) mg/dL Lactic Ac Sepsis Rflx Y Plasma Lactic Acid Brant 3.2 H* (0.7-2.0) mmol/L Calcium (8.4-10.2) mg/dL Total Bilirubin (0.2-1.3) mg/dL AST (14-36) U/L ALT (9-52) U/L Alkaline Phosphatase (38-126) U/L Total Protein (6.3-8.2) g/dL Albumin (3.5-5.0) g/dL Amylase (30-110) U/L Lipase (23-300) U/L Urine Color Urine Appearance (Clear) Urine pH (5.0-8.0) Ur Specific [place] (1.001-1.035) Urine Protein (Negative) Urine Glucose (UA) (Negative) Urine Ketones (Negative) Urine Blood (Negative) Urine Nitrite (Negative) Urine Bilirubin (Negative) Urine Urobilinogen (<2.0) mg/dL Ur Leukocyte Esterase (Negative) Urine RBC (0-5) /hpf Urine WBC (0-5) /hpf Ur Squamous Epith Cells (0-4) /hpf Urine Mucus (None) /hpf Urine HCG, Qual (Not Detectd) 02/17/18 Range/Units 00:36 WBC (3.8-10.6) k/uL RBC (3.80-5.40) m/uL Hgb (11.4-16.0) gm/dL Hct (34.0-46.0) % MCV (80.0-100.0) fL MCH (25.0-35.0) pg MCHC (31.0-37.0) g/dL RDW (11.5-15.5) % Plt Count (150-450) k/uL Neutrophils % % Lymphocytes % % Monocytes % % Eosinophils % % Basophils % % Neutrophils # (1.3-7.7) k/uL Lymphocytes # (1.0-4.8) k/uL Monocytes # (0-1.0) k/uL Eosinophils # (0-0.7) k/uL Basophils # (0-0.2) k/uL Manual Slide Review Large Platelets Poikilocytosis (manual Anisocytosis (manual) Sodium (137-145) mmol/L Potassium (3.5-5.1) mmol/L Chloride (98-107) mmol/L Carbon Dioxide (22-30) mmol/L Anion Gap mmol/L BUN (7-17) mg/dL Creatinine (0.52-1.04) mg/dL Est GFR (CKD-EPI)AfAm (>60 ml/min/1.73 sqM) Est GFR (CKD-EPI)NonAf (>60 ml/min/1.73 sqM) Glucose (74-99) mg/dL Lactic Ac Sepsis Rflx Plasma Lactic Acid Brant 1.5 (0.7-2.0) mmol/L Calcium (8.4-10.2) mg/dL Total Bilirubin (0.2-1.3) mg/dL AST (14-36) U/L ALT (9-52) U/L Alkaline Phosphatase (38-126) U/L Total Protein (6.3-8.2) g/dL Albumin (3.5-5.0) g/dL Amylase (30-110) U/L Lipase (23-300) U/L Urine Color Urine Appearance (Clear) Urine pH (5.0-8.0) Ur Specific [place] (1.001-1.035) Urine Protein (Negative) Urine Glucose (UA) (Negative) Urine Ketones (Negative) Urine Blood (Negative) Urine Nitrite (Negative) Urine Bilirubin (Negative) Urine Urobilinogen (<2.0) mg/dL Ur Leukocyte Esterase (Negative) Urine RBC (0-5) /hpf Urine WBC (0-5) /hpf Ur Squamous Epith Cells (0-4) /hpf Urine Mucus (None) /hpf Urine HCG, Qual (Not Detectd) Disposition Is patient prescribed a controlled substance at d/c from ED?: No Time of Disposition: 01:49 <Brandon Macedo P - Last Filed: 02/17/18 03:45> <Linda Ga P - Last Filed: 02/17/18 06:57> Clinical Impression: Kidney stone, Vomiting Disposition: HOME SELF-CARE Condition: Good Instructions: Kidney Stones (ED) Additional Instructions: Please continue to take home medications for pain. Take Zofran for nausea. Follow-up with primary care in 1-2 days. Return to the emergency department if you have any worsening symptoms. Prescriptions: Ondansetron [Zofran ODT] 4 mg PO Q8HR PRN #15 tab PRN Reason: Nausea Referrals: Melchor Stevens MD [Primary Care Provider] - 1-2 days
[2018-02-16 23:50] LABS: ALT 47 U/L (9-52); AST 33 U/L (14-36); Albumin 5.1 g/dL (3.5-5.0); Alkaline Phosphatase 106 U/L (38-126); Amylase 59 U/L (30-110); Anion Gap 17 mmol/L; Blood Urea Nitrogen 15 mg/dL (7-17); Calcium 10.2 mg/dL (8.4-10.2); Carbon Dioxide 20 mmol/L (22-30); Chloride 99 mmol/L (98-107); Glucose 188 mg/dL (74-99); Lipase 142 U/L (23-300); Potassium 4.8 mmol/L (3.5-5.1); Sodium 136 mmol/L (137-145); Total Bilirubin 0.4 mg/dL (0.2-1.3); Total Protein 8.1 g/dL (6.3-8.2)
[2018-02-16 23:58] LABS: Basophils # (A) 0.1 k/uL (0-0.2); Basophils % (A) 1 %; Eosinophils # (A) 0.4 k/uL (0-0.7); Eosinophils % (A) 4 %; HCT 42.3 % (34.0-46.0); HGB 13.6 gm/dL (11.4-16.0); Lymphocytes # (A) 5.5 k/uL (1.0-4.8); Lymphocytes % (A) 51 %; MCH 27.3 pg (25.0-35.0); MCHC 32.1 g/dL (31.0-37.0); Mean Platelet Volume 6.9; Monocytes # (A) 0.4 k/uL (0-1.0); Monocytes % (A) 4 %; Neutrophils # (A) 4.2 k/uL (1.3-7.7); Neutrophils % (A) 39 %; Platelet Count 397 k/uL (150-450); RBC 4.97 m/uL (3.80-5.40); RDW 14.4 % (11.5-15.5); WBC 10.8 k/uL (3.8-10.6)
[2018-02-17] MEDS ORDERED: MORPHINE SULFATE 4 MG/ML SYRINGE IVP STA (00:01)
[2018-02-17 00:47] LABS: Anisocytosis (M) Present; Large Platelets Present; Poikilocytosis (M) Present
[2018-02-17] MEDS ORDERED: DEXTROSE 5%-0.9% NACL 1,000 ML IV SCH (01:00)
[2018-02-17 02:02] VITALS: BP 105/56; PULSE 101; TEMP 98.7
== END 2018-02-17 02:02 | disposition home or self-care (01) ==
LOC: EC 22:35
DX: N20.0 Calculus of kidney (principal); E11.9 Type 2 diabetes mellitus without complications; K21.9 Gastro-esophageal reflux disease without esophagitis; I10 Essential (primary) hypertension; F41.9 Anxiety disorder, unspecified; F32.9 Major depressive disorder, single episode, unspecified; F43.10 Post-traumatic stress disorder, unspecified; F17.200 Nicotine dependence, unspecified, uncomplicated; Q61.3 Polycystic kidney, unspecified; Z90.49 Acquired absence of other specified parts of digestive tract; Z90.710 Acquired absence of both cervix and uterus; Z98.51 Tubal ligation status; Z98.890 Other specified postprocedural states; Z79.4 Long term (current) use of insulin; Z79.1 Long term (current) use of non-steroidal anti-inflammatories (NSAID); Z79.899 Other long term (current) drug therapy; Z88.8 Allergy status to other drugs, medicaments and biological substances; Z88.5 Allergy status to narcotic agent; Z91.041 Radiographic dye allergy status; Z91.018 Allergy to other foods; Z88.2 Allergy status to sulfonamides; Z88.0 Allergy status to penicillin
CPT/HCPCS: 36415 ×2; 80053; 82150; 83605 ×2; 83690; 85025; 81001; 81025; 87040; 87086; 99284; 96374; 96375 ×2; 96361 ×2; J2270; J2405; J1885

== ENCOUNTER 2018-03-12 05:21 | Emergency (ER) | payer OTHER ==
[2018-03-12 05:29] VITALS: PULSE 99
[2018-03-12 05:54] LABS: Appearance,Urine Cloudy (Clear); Bilirubin,Urine Negative (Negative); Blood,Urine Large (Negative); Color,Urine Yellow; Glucose,Urine (UA) Negative (Negative); Ketones,Urine Negative (Negative); Leukocyte Esterase,Urine Negative (Negative); Mucus,Urine Rare /hpf; Nitrite,Urine Negative (Negative); PH, Urine 5.5 (5.0-8.0); Protein,Urine Trace (Negative); RBC,Urine >182 /hpf (0-5); Specific Gravity,Urine 1.013 (1.001-1.035); Squamous Epithelial Cell,Urine 9 /hpf (0-4); Urobilinogen,Urine <2.0 mg/dL (<2.0)
[2018-03-12] MEDS ORDERED: SODIUM CHLORIDE 0.9% 1,000 ML IV ONE (06:08)
[2018-03-12] MEDS ORDERED: ONDANSETRON 4 MG/2 ML VIAL IVP STA (06:08)
[2018-03-12] MEDS ORDERED: KETOROLAC 30 MG/ML 1 ML VIAL IVP ONE (06:08)
[2018-03-12] MEDS ORDERED: MORPHINE SULFATE 4 MG/ML SYRINGE IVP STA ×2 (06:08→07:00)
--- NOTE | 2018-03-12 06:16 | ED ---
General Adult HPI - General Chief complaint: Abdominal Pain Stated complaint: Kidney stone Time Seen by Provider: 03/12/18 05:45 Source: patient Mode of arrival: ambulatory Limitations: no limitations - History of Present Illness Initial comments: Patient is a 42-year-old female with an extensive medical history most significant for recurrent kidney stones who presents to the ER today for evaluation of left-sided flank pain and hematuria and urinary frequency and dysuria. Patient reports that she passed a kidney stone approximately 3 weeks ago, she says while he followed up with her urologist. She reports that due to chronic hydronephrosis and pain she is on Percocet 4 times daily, Flomax and low back. Patient reports that despite being compliant with these medications she has been experiencing worsening left-sided flank pain since approximately 3 PM yesterday. Reports that throughout the night flank pain became worse, was associated with nausea which prompted her to come to the ER for further management. Patient exposes concerned that she may have a urinary tract infection at this time due to dysuria which is worse than when she usually has hematuria. She denies additional complaints. - Related Data Home Medications Medication Instructions Recorded Confirmed Insulin Glargine,Hum.rec.anlog 15 unit SQ HS 07/24/17 03/12/18 [Basaglar Kwikpen U-100] Insulin Glulisine [Apidra] 5 unit SQ AC-TID 07/29/17 03/12/18 OLANZapine [ZyPREXA] 10 mg PO BID@0900,2200 08/19/17 03/12/18 oxyCODONE-APAP 10-325MG [Percocet 1 tab PO QID PRN 08/29/17 03/12/18 10-325 mg] OXcarbazepine [Trileptal] 300 mg PO BID 02/05/18 03/12/18 ARIPiprazole [Abilify] 5 mg PO DAILY 03/12/18 03/12/18 Atorvastatin [Lipitor] 40 mg PO DAILY 03/12/18 03/12/18 Mirtazapine [Remeron] 15 mg PO HS 03/12/18 03/12/18 PARoxetine HCL [Paxil] 40 mg PO DAILY 03/12/18 03/12/18 Topiramate [Topamax] 100 mg PO BID 03/12/18 03/12/18 Previous Rx's Medication Instructions Recorded Lisinopril [Zestril] 10 mg PO HS tab 08/02/17 SUMAtriptan SUCCINATE [Imitrex] 100 mg PO DAILY PRN tab 08/02/17 metFORMIN HCL [Glucophage] 1,000 mg PO BID-W/MEALS tab 08/02/17 Ondansetron [Zofran ODT] 4 mg PO Q8HR PRN #15 tab 02/17/18 Ondansetron [Zofran ODT] 4 mg PO Q8HR #12 tab 03/12/18 Allergies Allergy/AdvReac Type Severity Reaction Status Date / Time bupropion HCl Allergy Rash/Hives Verified 03/12/18 05:29 [From Wellbutrin] divalproex sodium Allergy Unknown Verified 03/12/18 05:29 [From Depakote] fentanyl Allergy Swelling Verified 03/12/18 05:29 hydrocodone Allergy Itching Verified 03/12/18 05:29 Iodinated Contrast- Oral and Allergy Anaphylaxis Verified 03/12/18 05:29 IV Dye [Iodinated Contrast Media - IV Dye] orange juice [[place]] Allergy Rash/Hives Verified 03/12/18 05:29 Sulfa (Sulfonamide Allergy Rash/Hives Verified 03/12/18 05:29 Antibiotics) Penicillins AdvReac Nausea & Verified 03/12/18 05:29 Vomiting Review of Systems ROS Statement: Those systems with pertinent positive or pertinent negative responses have been documented in the HPI. ROS Other: All systems not noted in ROS Statement are negative. 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 History of Any Multi-Drug Resistant Organisms: None Reported Date of last positivie culture/infection: 05/14/17 MDRO Source:: ESBL URINE Past Surgical History: Bladder Surgery, Section, Cholecystectomy, Hysterectomy, Orthopedic Surgery, Tubal Ligation Additional Past Surgical History / Comment(s): R ovarian cystectomy, laparoscopic surgery for L ovary that had attached to the bowel, D&C, numerous lithotripsies, nephroscopies, cystoscopies and stents to ureters-none in place at this time, L robotic pyeloplasty with post op infection around kidney which then required a picc line/later removed (pt states was not MRSA), L rotator cuff repair, L wrist tendon surgery, colonoscopy Past Anesthesia/Blood Transfusion Reactions: Family History of Problems w/ Anesthesia Additional Past Anesthesia/Blood Transfusion Reaction / Comment(s): dad-hard time waking up due to enzyme problems in liver Past Psychological History: ADD/ADHD, Anxiety, Bipolar, Depression, PTSD Smoking Status: Current every day smoker Past Alcohol Use History: None Reported Past Drug Use History: None Reported - Past Family History Brother(s) Family Medical History: Cancer Additional Family Medical History / Comment(s): testicular Father Family Medical History: Coronary Artery Disease (CAD), CVA/TIA, Diabetes Mellitus, Renal Disease Additional Family Medical History / Comment(s): GLAUCOMA,NEUROPATHY HAD TRIPLE CABG, at 56yrs from renal disease. Mother Family Medical History: Hyperlipidemia Additional Family Medical History / Comment(s): DDD, HAD 3 vessel CABG AGE 54. General Exam - General Exam Comments Initial Comments: GENERAL: Patient is well-developed and well-nourished. Patient is nontoxic and well- hydrated and is in no distress. HENT: Normocephalic, Atraumatic. Neck is soft and supple. No significant lymphadenopathy is noted. Oropharynx is clear. Moist mucous membranes. Neck has full range of motion without eliciting any pain. EYES: The sclera were anicteric and conjunctiva were pink and moist. Extraocular movements were intact and pupils were equal round and reactive to light. Eyelids were unremarkable. PULMONARY: Unlabored respirations. Good breath sounds bilaterally. No audible rales rhonchi or wheezing was noted. CARDIOVASCULAR: There is a regular rate and rhythm without any murmurs gallops or rubs. ABDOMEN: Soft and nontender with normal bowel sounds. Left sided flank pain SKIN: Skin is clear with no lesions or rashes and otherwise unremarkable. NEUROLOGIC: Patient is alert and oriented x3. Cranial nerves II through XII are grossly intact. Motor and sensory are also intact. Normal speech, volume and content. Symmetrical smile. MUSCULOSKELETAL: Normal extremities with adequate strength and full range of motion. No lower extremity swelling or edema. No calf tenderness. LYMPHATICS: No significant lymphadenopathy is noted PSYCHIATRIC: Normal psychiatric evaluation. Limitations: no limitations Limitations: no limitations Course Vital Signs 03/12/18 05:24 Temperature 98.2 F Pulse Rate 99 Respiratory 20 Rate Blood Pressure 116/80 O2 Sat by Pulse 100 Oximetry Medical Decision Making - Medical Decision Making The patient was seen and evaluated history was obtained from the patient and review of medical records Labs and medications were ordered Patient reports pain improved from a greater than 10 to a 7 with first dose of medications. We'll get a second dose of medication Patient is currently out of by mouth Zofran at home. We'll prescribe Zofran at discharge. Return parameters were discussed. Patient very familiar with care for a kidney stone. With her urologist as planned. - Lab Data Result diagrams: 03/12/18 06:25 03/12/18 06:25 Lab Results 03/12/18 03/12/18 03/12/18 Range/Units 05:42 06:25 06:25 WBC 12.4 H (3.8-10.6) k/uL RBC 4.89 (3.80-5.40) m/uL Hgb 13.6 (11.4-16.0) gm/dL Hct 41.9 (34.0-46.0) % MCV 85.6 (80.0-100.0) fL MCH 27.9 (25.0-35.0) pg MCHC 32.6 (31.0-37.0) g/dL RDW 14.7 (11.5-15.5) % Plt Count 365 (150-450) k/uL Neutrophils % 63 % Lymphocytes % 28 % Monocytes % 4 % Eosinophils % 4 % Basophils % 1 % Neutrophils # 7.7 (1.3-7.7) k/uL Lymphocytes # 3.5 (1.0-4.8) k/uL Monocytes # 0.5 (0-1.0) k/uL Eosinophils # 0.4 (0-0.7) k/uL Basophils # 0.1 (0-0.2) k/uL Sodium 140 (137-145) mmol/L Potassium 3.9 (3.5-5.1) mmol/L Chloride 109 H (98-107) mmol/L Carbon Dioxide 18 L (22-30) mmol/L Anion Gap 13 mmol/L BUN 13 (7-17) mg/dL Creatinine 0.73 (0.52-1.04) mg/dL Est GFR (CKD-EPI)AfAm >90 (>60 ml/min/1.73 sqM) Est GFR (CKD-EPI)NonAf >90 (>60 ml/min/1.73 sqM) Glucose 126 H (74-99) mg/dL Calcium 10.2 (8.4-10.2) mg/dL Urine Color Yellow Urine Appearance Cloudy H (Clear) Urine pH 5.5 (5.0-8.0) Ur Specific [place] 1.013 (1.001-1.035) Urine Protein Trace H (Negative) Urine Glucose (UA) Negative (Negative) Urine Ketones Negative (Negative) Urine Blood Large H (Negative) Urine Nitrite Negative (Negative) Urine Bilirubin Negative (Negative) Urine Urobilinogen <2.0 (<2.0) mg/dL Ur Leukocyte Esterase Negative (Negative) Urine RBC >182 H (0-5) /hpf Ur Squamous Epith Cells 9 H (0-4) /hpf Urine Mucus Rare H (None) /hpf Disposition Clinical Impression: Nephrolithiasis, Renal colic on left side Disposition: HOME SELF-CARE Condition: Stable Instructions: Kidney Stones (ED) Prescriptions: Ondansetron [Zofran ODT] 4 mg PO Q8HR #12 tab Is patient prescribed a controlled substance at d/c from ED?: No Referrals: Melchor Stevens MD [Primary Care Provider] - 1-2 days Malachi Ortega MD [STAFF PHYSICIAN] - 1-2 days Time of Disposition: 07:05
[2018-03-12 06:30] LABS: Basophils # (A) 0.1 k/uL (0-0.2); Basophils % (A) 1 %; Eosinophils # (A) 0.4 k/uL (0-0.7); Eosinophils % (A) 4 %; HCT 41.9 % (34.0-46.0); HGB 13.6 gm/dL (11.4-16.0); Lymphocytes # (A) 3.5 k/uL (1.0-4.8); Lymphocytes % (A) 28 %; MCH 27.9 pg (25.0-35.0); MCHC 32.6 g/dL (31.0-37.0); MCV 85.6 fL (80.0-100.0); Mean Platelet Volume 6.4; Monocytes # (A) 0.5 k/uL (0-1.0); Monocytes % (A) 4 %; Neutrophils # (A) 7.7 k/uL (1.3-7.7); Neutrophils % (A) 63 %; Platelet Count 365 k/uL (150-450); RBC 4.89 m/uL (3.80-5.40); RDW 14.7 % (11.5-15.5); WBC 12.4 k/uL (3.8-10.6)
[2018-03-12 06:42] LABS: Blood Urea Nitrogen 13 mg/dL (7-17); Calcium 10.2 mg/dL (8.4-10.2); Carbon Dioxide 18 mmol/L (22-30); Chloride 109 mmol/L (98-107); Glucose 126 mg/dL (74-99)
[2018-03-12 06:52] LABS: Anion Gap 13 mmol/L; Potassium 3.9 mmol/L (3.5-5.1); Sodium 140 mmol/L (137-145)
[2018-03-12 07:37] VITALS: BP 128/64; RESP 16; TEMP 98
== END 2018-03-12 07:40 | disposition home or self-care (01) ==
LOC: EC 05:21
DX: N20.0 Calculus of kidney (principal); E11.9 Type 2 diabetes mellitus without complications; G43.909 Migraine, unspecified, not intractable, without status migrainosus; Q61.3 Polycystic kidney, unspecified; F41.9 Anxiety disorder, unspecified; F32.9 Major depressive disorder, single episode, unspecified; F43.10 Post-traumatic stress disorder, unspecified; F17.200 Nicotine dependence, unspecified, uncomplicated; Z90.49 Acquired absence of other specified parts of digestive tract; Z90.710 Acquired absence of both cervix and uterus; Z98.890 Other specified postprocedural states; Z79.4 Long term (current) use of insulin; Z79.899 Other long term (current) drug therapy; Z88.8 Allergy status to other drugs, medicaments and biological substances; Z88.5 Allergy status to narcotic agent; Z91.041 Radiographic dye allergy status; Z91.018 Allergy to other foods; Z88.2 Allergy status to sulfonamides; Z88.0 Allergy status to penicillin
CPT/HCPCS: 36415; 80048; 85025; 81001; 99284; 96374; 96375 ×2; 96376; 96361; J2270; J2405; J1885

== ENCOUNTER 2018-03-20 15:20 | Emergency (ER) | payer OTHER ==
[2018-03-20 15:32] VITALS: RESP 18
[2018-03-20] MEDS ORDERED: SODIUM CHLORIDE 0.9% 1,000 ML IV STA (15:40)
[2018-03-20] MEDS ORDERED: KETOROLAC 30 MG/ML 1 ML VIAL IVP STA (15:40)
[2018-03-20] MEDS ORDERED: ONDANSETRON 4 MG/2 ML VIAL IVP STA (15:40)
[2018-03-20] MEDS ORDERED: SODIUM CHLORIDE 0.9% 500 ML IV STA (15:40)
--- NOTE | 2018-03-20 15:57 | ED ---
Abdominal Pain HPI - General Chief Complaint: Abdominal Pain Stated Complaint: kidney stones Time Seen by Provider: 03/20/18 15:40 Source: patient, RN notes reviewed Mode of arrival: ambulatory Limitations: no limitations - History of Present Illness Initial Comments: 42-year-old female presents emergency Department chief complaint of left flank pain. Patient states that she felt that she passed 2 stones earlier continues to have severe left flank pain. Patient states that she called her urologist came or is unable to an appointment. Patient has been to some nausea no vomiting. Patient states that she's had hematuria. Patient denies any chance and she's had a hysterectomy. Patient any diarrhea constipation. There is nothing much pain feel better or worse at this time. - Related Data Home Medications Medication Instructions Recorded Confirmed Insulin Glargine,Hum.rec.anlog 15 unit SQ HS 07/24/17 03/12/18 [Basaglar Kwikpen U-100] Insulin Glulisine [Apidra] 5 unit SQ AC-TID 07/29/17 03/12/18 OLANZapine [ZyPREXA] 10 mg PO BID@0900,2200 08/19/17 03/12/18 oxyCODONE-APAP 10-325MG [Percocet 1 tab PO QID PRN 08/29/17 03/12/18 10-325 mg] OXcarbazepine [Trileptal] 300 mg PO BID 02/05/18 03/12/18 ARIPiprazole [Abilify] 5 mg PO DAILY 03/12/18 03/12/18 Atorvastatin [Lipitor] 40 mg PO DAILY 03/12/18 03/12/18 Mirtazapine [Remeron] 15 mg PO HS 03/12/18 03/12/18 PARoxetine HCL [Paxil] 40 mg PO DAILY 03/12/18 03/12/18 Topiramate [Topamax] 100 mg PO BID 03/12/18 03/12/18 Previous Rx's Medication Instructions Recorded Lisinopril [Zestril] 10 mg PO HS tab 08/02/17 SUMAtriptan SUCCINATE [Imitrex] 100 mg PO DAILY PRN tab 08/02/17 metFORMIN HCL [Glucophage] 1,000 mg PO BID-W/MEALS tab 08/02/17 Ondansetron [Zofran ODT] 4 mg PO Q8HR PRN #15 tab 02/17/18 Ondansetron [Zofran ODT] 4 mg PO Q8HR #12 tab 03/12/18 Allergies Allergy/AdvReac Type Severity Reaction Status Date / Time bupropion HCl Allergy Rash/Hives Verified 03/20/18 15:32 [From Wellbutrin] divalproex sodium Allergy Unknown Verified 03/20/18 15:32 [From Depakote] fentanyl Allergy Swelling Verified 03/20/18 15:32 hydrocodone Allergy Itching Verified 03/20/18 15:32 Iodinated Contrast- Oral and Allergy Anaphylaxis Verified 03/20/18 15:32 IV Dye [Iodinated Contrast Media - IV Dye] orange juice [[place]] Allergy Rash/Hives Verified 03/20/18 15:32 Sulfa (Sulfonamide Allergy Rash/Hives Verified 03/20/18 15:32 Antibiotics) Penicillins AdvReac Nausea & Verified 03/20/18 15:32 Vomiting Review of Systems ROS Statement: Those systems with pertinent positive or pertinent negative responses have been documented in the HPI. ROS Other: All systems not noted in ROS Statement are negative. 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 History of Any Multi-Drug Resistant Organisms: None Reported Date of last positivie culture/infection: 05/14/17 MDRO Source:: ESBL URINE Past Surgical History: Bladder Surgery, Section, Cholecystectomy, Hysterectomy, Orthopedic Surgery, Tubal Ligation Additional Past Surgical History / Comment(s): R ovarian cystectomy, laparoscopic surgery for L ovary that had attached to the bowel, D&C, numerous lithotripsies, nephroscopies, cystoscopies and stents to ureters-none in place at this time, L robotic pyeloplasty with post op infection around kidney which then required a picc line/later removed (pt states was not MRSA), L rotator cuff repair, L wrist tendon surgery, colonoscopy Past Anesthesia/Blood Transfusion Reactions: Family History of Problems w/ Anesthesia Additional Past Anesthesia/Blood Transfusion Reaction / Comment(s): dad-hard time waking up due to enzyme problems in liver Past Psychological History: ADD/ADHD, Anxiety, Bipolar, Depression, PTSD Smoking Status: Current every day smoker Past Alcohol Use History: None Reported Past Drug Use History: None Reported - Past Family History Brother(s) Family Medical History: Cancer Additional Family Medical History / Comment(s): testicular Father Family Medical History: Coronary Artery Disease (CAD), CVA/TIA, Diabetes Mellitus, Renal Disease Additional Family Medical History / Comment(s): GLAUCOMA,NEUROPATHY HAD TRIPLE CABG, at 56yrs from renal disease. Mother Family Medical History: Hyperlipidemia Additional Family Medical History / Comment(s): DDD, HAD 3 vessel CABG AGE 54. General Exam Limitations: no limitations General appearance: alert, in no apparent distress Head exam: Present: atraumatic, normocephalic, normal inspection Respiratory exam: Present: normal lung sounds bilaterally. Absent: respiratory distress, wheezes, rales, rhonchi, stridor Cardiovascular Exam: Present: regular rate, normal rhythm, normal heart sounds. Absent: systolic murmur, diastolic murmur, rubs, gallop, clicks GI/Abdominal exam: Present: soft, normal bowel sounds. Absent: distended, tenderness (no Increase in patient's pain with palpation the left lower quadrant ), guarding, rebound, rigid Back exam: Present: CVA tenderness (L). Absent: CVA tenderness (R) Skin exam: Present: warm, dry, intact, normal color. Absent: rash Course Vital Signs 03/20/18 15:30 Temperature 98.2 F Pulse Rate 108 H Respiratory 18 Rate Blood Pressure 109/71 O2 Sat by Pulse 98 Oximetry Medical Decision Making - Medical Decision Making 42-year-old female presented from for left flank pain. Patient has no history kidney stones. Patient has lower, x-ray and urinalysis. Patient has notable hematuria which is consistent with her prior kidney stones. Patient we discharged advised to continue medications as directed and return for any worsening symptoms. - Lab Data Result diagrams: 03/20/18 15:59 03/20/18 15:59 Lab Results 03/20/18 03/20/18 03/20/18 Range/Units 15:59 15:59 15:59 WBC 11.0 H (3.8-10.6) k/uL RBC 4.32 (3.80-5.40) m/uL Hgb 12.1 (11.4-16.0) gm/dL Hct 37.3 (34.0-46.0) % MCV 86.4 (80.0-100.0) fL MCH 27.9 (25.0-35.0) pg MCHC 32.3 (31.0-37.0) g/dL RDW 14.3 (11.5-15.5) % Plt Count 316 (150-450) k/uL Neutrophils % 50 % Lymphocytes % 41 % Monocytes % 4 % Eosinophils % 4 % Basophils % 1 % Neutrophils # 5.5 (1.3-7.7) k/uL Lymphocytes # 4.5 (1.0-4.8) k/uL Monocytes # 0.5 (0-1.0) k/uL Eosinophils # 0.4 (0-0.7) k/uL Basophils # 0.1 (0-0.2) k/uL Sodium 141 (137-145) mmol/L Potassium 3.7 (3.5-5.1) mmol/L Chloride 110 H (98-107) mmol/L Carbon Dioxide 19 L (22-30) mmol/L Anion Gap 12 mmol/L BUN 13 (7-17) mg/dL Creatinine 0.78 (0.52-1.04) mg/dL Est GFR (CKD-EPI)AfAm >90 (>60 ml/min/1.73 sqM) Est GFR (CKD-EPI)NonAf >90 (>60 ml/min/1.73 sqM) Glucose 102 H (74-99) mg/dL Calcium 9.6 (8.4-10.2) mg/dL Total Bilirubin 0.3 (0.2-1.3) mg/dL AST 26 (14-36) U/L ALT 30 (9-52) U/L Alkaline Phosphatase 99 (38-126) U/L Total Protein 6.9 (6.3-8.2) g/dL Albumin 4.1 (3.5-5.0) g/dL Amylase 51 (30-110) U/L Lipase 147 (23-300) U/L Urine Color Light Red Urine Appearance Cloudy H (Clear) Urine pH 7.5 (5.0-8.0) Ur Specific [place] 1.018 (1.001-1.035) Urine Protein 1+ H (Negative) Urine Glucose (UA) Negative (Negative) Urine Ketones Negative (Negative) Urine Blood Large H (Negative) Urine Nitrite Negative (Negative) Urine Bilirubin Negative (Negative) Urine Urobilinogen <2.0 (<2.0) mg/dL Ur Leukocyte Esterase Small H (Negative) Urine RBC >182 H (0-5) /hpf Urine WBC 17 H (0-5) /hpf Ur Squamous Epith Cells 19 H (0-4) /hpf Urine Bacteria Rare H (None) /hpf Urine Mucus Occasional H (None) /hpf Disposition Clinical Impression: Abdominal pain, Left flank pain, Hematuria Disposition: HOME SELF-CARE Condition: Stable Instructions: Kidney Stones (ED) Additional Instructions: Please return to the Emergency Department if symptoms worsen or any other concerns. Is patient prescribed a controlled substance at d/c from ED?: No Referrals: Melchor Stevens MD [Primary Care Provider] - 1-2 days Time of Disposition: 17:15
[2018-03-20 16:24] LABS: Basophils # (A) 0.1 k/uL (0-0.2); Basophils % (A) 1 %; Eosinophils # (A) 0.4 k/uL (0-0.7); Eosinophils % (A) 4 %; HCT 37.3 % (34.0-46.0); HGB 12.1 gm/dL (11.4-16.0); Lymphocytes # (A) 4.5 k/uL (1.0-4.8); Lymphocytes % (A) 41 %; MCH 27.9 pg (25.0-35.0); MCHC 32.3 g/dL (31.0-37.0); MCV 86.4 fL (80.0-100.0); Mean Platelet Volume 6.5; Monocytes # (A) 0.5 k/uL (0-1.0); Monocytes % (A) 4 %; Neutrophils # (A) 5.5 k/uL (1.3-7.7); Neutrophils % (A) 50 %; Platelet Count 316 k/uL (150-450); RBC 4.32 m/uL (3.80-5.40); RDW 14.3 % (11.5-15.5)
[2018-03-20 16:30] LABS: Appearance,Urine Cloudy (Clear); Bacteria,Urine Rare /hpf; Bilirubin,Urine Negative (Negative); Blood,Urine Large (Negative); Color,Urine Light Red; Glucose,Urine (UA) Negative (Negative); Ketones,Urine Negative (Negative); Leukocyte Esterase,Urine Small (Negative); Mucus,Urine Occasional /hpf; Nitrite,Urine Negative (Negative); PH, Urine 7.5 (5.0-8.0); Protein,Urine 1+ (Negative); RBC,Urine >182 /hpf (0-5); Specific Gravity,Urine 1.018 (1.001-1.035); Squamous Epithelial Cell,Urine 19 /hpf (0-4); Urobilinogen,Urine <2.0 mg/dL (<2.0); WBC,Urine 17 /hpf (0-5)
[2018-03-20 16:36] LABS: ALT 30 U/L (9-52); AST 26 U/L (14-36); Albumin 4.1 g/dL (3.5-5.0); Anion Gap 12 mmol/L; Blood Urea Nitrogen 13 mg/dL (7-17); Calcium 9.6 mg/dL (8.4-10.2); Carbon Dioxide 19 mmol/L (22-30); Chloride 110 mmol/L (98-107); Glucose 102 mg/dL (74-99); Potassium 3.7 mmol/L (3.5-5.1); Sodium 141 mmol/L (137-145); Total Bilirubin 0.3 mg/dL (0.2-1.3); Total Protein 6.9 g/dL (6.3-8.2)
[2018-03-20 16:37] LABS: Alkaline Phosphatase 99 U/L (38-126); Amylase 51 U/L (30-110); Lipase 147 U/L (23-300)
--- NOTE | 2018-03-20 17:05 | XR ---
EXAMINATION TYPE: XR KUB DATE OF EXAM: 03/20/2018 COMPARISON: 02/01/2018 HISTORY: Flank pain TECHNIQUE: 2 views FINDINGS: Bowel gas pattern is normal. There is no sign of intestinal obstruction or pneumoperitoneum . Fecal pattern is normal. There is slight lumbar levoscoliosis. There are clips from cholecystectomy . There are no pathologic calcifications over the kidneys. IMPRESSION: Nonacute abdomen. No change.
[2018-03-20] MEDS ORDERED: MORPHINE SULFATE 4 MG/ML SYRINGE IVP STA (17:15)
[2018-03-20 17:26] VITALS: BP 107/73; PULSE 52; TEMP 97.4
== END 2018-03-20 17:26 | disposition home or self-care (01) ==
LOC: EC 15:20
DX: R31.9 Hematuria, unspecified (principal); R10.9 Unspecified abdominal pain; R11.0 Nausea; Q61.3 Polycystic kidney, unspecified; E11.9 Type 2 diabetes mellitus without complications; I10 Essential (primary) hypertension; F31.9 Bipolar disorder, unspecified; F41.9 Anxiety disorder, unspecified; F43.10 Post-traumatic stress disorder, unspecified; F17.200 Nicotine dependence, unspecified, uncomplicated; Z88.0 Allergy status to penicillin; Z88.2 Allergy status to sulfonamides; Z88.5 Allergy status to narcotic agent; Z88.8 Allergy status to other drugs, medicaments and biological substances; Z91.018 Allergy to other foods; Z91.041 Radiographic dye allergy status; Z79.4 Long term (current) use of insulin; Z79.899 Other long term (current) drug therapy; Z90.49 Acquired absence of other specified parts of digestive tract; Z98.890 Other specified postprocedural states; Z84.1 Family history of disorders of kidney and ureter
CPT/HCPCS: 36415; 74018; 80053; 81001; 82150; 83690; 85025; 96361; 96374; 96375; 99284

== ENCOUNTER → 2018-03-23 | Outpatient (CLI) | payer OTHER ==
--- NOTE | 2018-03-24 14:05 | MR ---
EXAMINATION TYPE: MR lumbar spine wo con DATE OF EXAM: 03/23/2018 COMPARISON: None HISTORY: No Injury, Low back Pain, x10 years, Pain across lower back CONTRAST: 0 mL intravenous Gadavist. TECHNIQUE: Multiplanar, multisequence images of the lumbar spine were acquired. FINDINGS: Cord terminates at the L1 level. L5-S1: No significant disc bulge or disc herniation. No spinal canal stenosis. No foraminal stenosi s. L4-L5: No significant disc bulge or disc herniation. No spinal canal stenosis. No foraminal stenosi s. Disc desiccation is present. Disc height is preserved. L3-L4: No significant disc bulge or disc herniation. No spinal canal stenosis. No foraminal stenosi s. L2-L3: Minimal disc bulge is present with anterior thecal sac contact. No spinal canal stenosis is pr esent. Neural foramen are patent. L1-L2: No significant disc bulge or disc herniation. No spinal canal stenosis. No foraminal stenosi s. T12-L1: There is a small right paracentral disc bulge with mild anterior thecal sac compression. No spinal canal stenosis. No foraminal stenosis. No cord contact is evident. Neural foramen are patent. There is an extrarenal pelvis on the left kidney. IMPRESSION: 1. Small right paracentral disc bulge T12-L1 with mild anterior thecal sac compression. Cord contact or exiting nerve root contact is evident. 2. Minimal disc bulge with anterior thecal sac contact at L2-3.
== END | disposition home or self-care (01) ==
LOC: RADMRIMAIN 13:45
PROVIDERS: ATTEND Internal Medicine
DX: M51.25 Other intervertebral disc displacement, thoracolumbar region (principal)
CPT/HCPCS: 72148

== ENCOUNTER → 2018-03-27 | Outpatient (CLI) | payer OTHER ==
[2018-03-27 16:27] LABS: Basophils % (A) 0 %; Eosinophils # (A) 0.5 k/uL (0-0.7); Eosinophils % (A) 5 %; HCT 37.2 % (34.0-46.0); HGB 12.2 gm/dL (11.4-16.0); Lymphocytes # (A) 4.1 k/uL (1.0-4.8); Lymphocytes % (A) 42 %; MCH 28.6 pg (25.0-35.0); MCHC 32.8 g/dL (31.0-37.0); MCV 87.2 fL (80.0-100.0); Monocytes # (A) 0.3 k/uL (0-1.0); Monocytes % (A) 3 %; Neutrophils % (A) 50 %; Platelet Count 360 k/uL (150-450); RBC 4.27 m/uL (3.80-5.40); RDW 14.3 % (11.5-15.5)
[2018-03-27 17:03] LABS: ALT 26 U/L (9-52); AST 25 U/L (14-36); Alkaline Phosphatase 86 U/L (38-126); Anion Gap 9 mmol/L; Blood Urea Nitrogen 9 mg/dL (7-17); Calcium 9.5 mg/dL (8.4-10.2); Carbon Dioxide 23 mmol/L (22-30); Chloride 108 mmol/L (98-107); Cholesterol 134 mg/dL (<200); Glucose 133 mg/dL (74-99); HDL Cholesterol 34 mg/dL (40-60); LDL Cholesterol,Calculated 38 mg/dL (0-99); Sodium 140 mmol/L (137-145); Total Bilirubin 0.3 mg/dL (0.2-1.3); Total Protein 6.7 g/dL (6.3-8.2); Triglycerides 311 mg/dL (<150)
--- NOTE | 2018-04-01 11:02 | MM ---
Reason for exam: screening (asymptomatic). Last mammogram was performed 6 years and 11 months ago. History: Patient is postmenopausal and had first child at age 32. Family history of breast cancer in paternal aunt. Physical Findings: A clinical breast exam by your physician is recommended on an annual basis and results should be correlated with mammographic findings. MG Screening Mammo w CAD Bilateral CC and MLO view(s) were taken. Prior study comparison: May 03, 2011, mammogram, performed at [facility]. March 01, 2006, mammogram, performed at [facility]. The breast tissue is heterogeneously dense. This may lower the sensitivity of mammography. No suspicious abnormality. No significant changes when compared with prior studies. ASSESSMENT: Negative, BI-RAD 1 RECOMMENDATION: Routine screening mammogram of both breasts in 1 year.
== END | disposition home or self-care (01) ==
LOC: RADMAMWWP 14:34
PROVIDERS: ATTEND Internal Medicine
DX: Z12.31 Encounter for screening mammogram for malignant neoplasm of breast (principal); E55.9 Vitamin D deficiency, unspecified; I10 Essential (primary) hypertension
CPT/HCPCS: 77067; 80053; 80061; 82306; 85025

== ENCOUNTER 2018-03-31 16:46 | Emergency (ER) | payer OTHER ==
[2018-03-31] MEDS ORDERED: SODIUM CHLORIDE 0.9% 1,000 ML IV ONE (17:36)
[2018-03-31] MEDS ORDERED: KETOROLAC 30 MG/ML 1 ML VIAL IM STA (17:52)
[2018-03-31] MEDS ORDERED: ONDANSETRON ODT 4 MG TAB PO STA (17:53)
[2018-03-31] MEDS ORDERED: MORPHINE SULFATE/PF 10MG/10ML VL IVP STA (17:53)
[2018-03-31] MEDS ORDERED: ONDANSETRON 4 MG/2 ML VIAL IVP STA (17:56)
[2018-03-31 18:00] LABS: Basophils % (A) 0 %; Eosinophils # (A) 0.3 k/uL (0-0.7); Eosinophils % (A) 3 %; HCT 37.4 % (34.0-46.0); HGB 13.1 gm/dL (11.4-16.0); Lymphocytes # (A) 3.3 k/uL (1.0-4.8); Lymphocytes % (A) 32 %; MCH 29.6 pg (25.0-35.0); MCHC 35.1 g/dL (31.0-37.0); MCV 84.3 fL (80.0-100.0); Mean Platelet Volume 6.7; Monocytes # (A) 0.3 k/uL (0-1.0); Monocytes % (A) 3 %; Neutrophils # (A) 6.2 k/uL (1.3-7.7); Neutrophils % (A) 60 %; Platelet Count 330 k/uL (150-450); RBC 4.44 m/uL (3.80-5.40); RDW 14.3 % (11.5-15.5); WBC 10.2 k/uL (3.8-10.6)
[2018-03-31] MEDS ORDERED: MORPHINE SULFATE 4 MG/ML SYRINGE IVP STA (18:01)
[2018-03-31] MEDS ORDERED: MORPHINE SULFATE 2 MG/ML SYRINGE IVP STA ×2 (18:04→20:05)
[2018-03-31] MEDS ORDERED: KETOROLAC 30 MG/ML 1 ML VIAL IVP STA (18:09)
[2018-03-31 18:11] LABS: ALT 23 U/L (9-52); AST 25 U/L (14-36); Albumin 4.3 g/dL (3.5-5.0); Alkaline Phosphatase 92 U/L (38-126); Anion Gap 12 mmol/L; Blood Urea Nitrogen 12 mg/dL (7-17); Calcium 10.1 mg/dL (8.4-10.2); Carbon Dioxide 20 mmol/L (22-30); Chloride 112 mmol/L (98-107); Glucose 134 mg/dL (74-99); Potassium 3.8 mmol/L (3.5-5.1); Sodium 144 mmol/L (137-145); Total Bilirubin 0.4 mg/dL (0.2-1.3); Total Protein 7.2 g/dL (6.3-8.2)
[2018-03-31 18:26] LABS: Amorphous Sediment,Urine Moderate /hpf; Appearance,Urine Turbid (Clear); Bilirubin,Urine Negative (Negative); Blood,Urine Large (Negative); Color,Urine Light Orange; Glucose,Urine (UA) Negative (Negative); Ketones,Urine Negative (Negative); Leukocyte Esterase,Urine Negative (Negative); Nitrite,Urine Negative (Negative); Protein,Urine 1+ (Negative); RBC,Urine >182 /hpf (0-5); Specific Gravity,Urine 1.015 (1.001-1.035); Squamous Epithelial Cell,Urine 5 /hpf (0-4); Urobilinogen,Urine <2.0 mg/dL (<2.0)
--- NOTE | 2018-03-31 18:33 | ED ---
Abdominal Pain HPI - General Chief Complaint: Abdominal Pain Stated Complaint: poss kidney stone Time Seen by Provider: 03/31/18 17:03 Source: patient Mode of arrival: ambulatory Limitations: no limitations - History of Present Illness Initial Comments: 42-year-old female with past medical history of chronic any stones, type 2 diabetes, hypertension and hyperlipidemia presenting for chief complaint of my kidney stones or back. Patient states that she has had left flank pain ongoing for weeks she passed a kidney stone on Sunday which she brought with her today. Patient states that the pain is worsening today and is constant and fluctuates in intensity with a worsening 10 out of 10. Patient states that feels like her typical pain that occurs with her kidney stones. Patient is experiencing dysuria and hematuria. Patient denies any fever, chills or night sweats. Patient took a Percocet at 3:30 PM and Toradol injection at 2:30 PM she states this helped minimally. Patient presents today for pain management and evaluation. Patient does have urologist Dr. Ortega for which she follow her chronic kidney stones and left kidney hydronephrosis. Upon arrival patient's vital signs stable, afebrile. Patient appears nontoxic, but uncomfortable. Patient denies any recent = shortness of breath, chest pain, back pain, abdominal pain,numbness or tingling, constipation or diarrhea, headaches or visual changes, or any other complaints. - Related Data Home Medications Medication Instructions Recorded Confirmed Insulin Glargine,Hum.rec.anlog 15 unit SQ HS 07/24/17 03/12/18 [Basaglar Kwikpen U-100] Insulin Glulisine [Apidra] 5 unit SQ AC-TID 07/29/17 03/12/18 OLANZapine [ZyPREXA] 10 mg PO BID@0900,2200 08/19/17 03/12/18 oxyCODONE-APAP 10-325MG [Percocet 1 tab PO QID PRN 08/29/17 03/12/18 10-325 mg] OXcarbazepine [Trileptal] 300 mg PO BID 02/05/18 03/12/18 ARIPiprazole [Abilify] 5 mg PO DAILY 03/12/18 03/12/18 Atorvastatin [Lipitor] 40 mg PO DAILY 03/12/18 03/12/18 Mirtazapine [Remeron] 15 mg PO HS 03/12/18 03/12/18 PARoxetine HCL [Paxil] 40 mg PO DAILY 03/12/18 03/12/18 Topiramate [Topamax] 100 mg PO BID 03/12/18 03/12/18 Previous Rx's Medication Instructions Recorded Lisinopril [Zestril] 10 mg PO HS tab 08/02/17 SUMAtriptan SUCCINATE [Imitrex] 100 mg PO DAILY PRN tab 08/02/17 metFORMIN HCL [Glucophage] 1,000 mg PO BID-W/MEALS tab 08/02/17 Ondansetron [Zofran ODT] 4 mg PO Q8HR PRN #15 tab 02/17/18 Ondansetron [Zofran ODT] 4 mg PO Q8HR #12 tab 03/12/18 Allergies Allergy/AdvReac Type Severity Reaction Status Date / Time bupropion HCl Allergy Rash/Hives Verified 03/31/18 16:59 [From Wellbutrin] divalproex sodium Allergy Unknown Verified 03/31/18 16:59 [From Depakote] fentanyl Allergy Swelling Verified 03/31/18 16:59 hydrocodone Allergy Itching Verified 03/31/18 16:59 Iodinated Contrast- Oral and Allergy Anaphylaxis Verified 03/31/18 16:59 IV Dye [Iodinated Contrast Media - IV Dye] orange juice [[place]] Allergy Rash/Hives Verified 03/31/18 16:59 Sulfa (Sulfonamide Allergy Rash/Hives Verified 03/31/18 16:59 Antibiotics) Penicillins AdvReac Nausea & Verified 03/31/18 16:59 Vomiting Review of Systems ROS Statement: Those systems with pertinent positive or pertinent negative responses have been documented in the HPI. ROS Other: All systems not noted in ROS Statement are negative. Constitutional: Denies: fever, chills, night sweats ENT: Denies: ear pain, throat pain Respiratory: Denies: cough, dyspnea Cardiovascular: Denies: chest pain, palpitations Endocrine: Denies: fatigue Gastrointestinal: Reports: nausea. Denies: abdominal pain, vomiting, diarrhea, constipation, hematemesis, melena, hematochezia Genitourinary: Reports: dysuria, hematuria. Denies: urgency, frequency Musculoskeletal: Reports: as per HPI (left flank). 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 History of Any Multi-Drug Resistant Organisms: None Reported Date of last positivie culture/infection: 05/14/17 MDRO Source:: ESBL URINE Past Surgical History: Bladder Surgery, Section, Cholecystectomy, Hysterectomy, Orthopedic Surgery, Tubal Ligation Additional Past Surgical History / Comment(s): R ovarian cystectomy, laparoscopic surgery for L ovary that had attached to the bowel, D&C, numerous lithotripsies, nephroscopies, cystoscopies and stents to ureters-none in place at this time, L robotic pyeloplasty with post op infection around kidney which then required a picc line/later removed (pt states was not MRSA), L rotator cuff repair, L wrist tendon surgery, colonoscopy Past Anesthesia/Blood Transfusion Reactions: Family History of Problems w/ Anesthesia Additional Past Anesthesia/Blood Transfusion Reaction / Comment(s): dad-hard time waking up due to enzyme problems in liver Past Psychological History: ADD/ADHD, Anxiety, Bipolar, Depression, PTSD Smoking Status: Current every day smoker Past Alcohol Use History: None Reported Past Drug Use History: None Reported - Past Family History Brother(s) Family Medical History: Cancer Additional Family Medical History / Comment(s): testicular Father Family Medical History: Coronary Artery Disease (CAD), CVA/TIA, Diabetes Mellitus, Renal Disease Additional Family Medical History / Comment(s): GLAUCOMA,NEUROPATHY HAD TRIPLE CABG, at 56yrs from renal disease. Mother Family Medical History: Hyperlipidemia Additional Family Medical History / Comment(s): DDD, HAD 3 vessel CABG AGE 54. General Exam - General Exam Comments Initial Comments: General: The patient is awake and alert, in no distress, and does not appear acutely ill. Eye: Pupils are equal, round and reactive to light, extra-ocular movements are intact. No nystagmus. There is normal conjunctiva bilaterally. No signs of icterus. Cardiovascular: There is a regular rate and rhythm. No murmur, rub or gallop is appreciated. Respiratory: Lungs are clear to auscultation, respirations are non-labored, breath sounds are equal. No wheezes, stridor, rales, or rhonchi. Gastrointestinal: No noted diaphoresis, jaundice, pallor, protecting postures or squirming. Symmetrical pigmentation of abdomen without signs of inflammation. Umbilicus mildline, inverted without swelling. No dilated veins. Abdomen contour obese, no noted abdominal distention. No visible masses. No peristalsis, aortic pulsations, or ventral hernia. Bowel sounds audible in all 4 quadrants, unremarkable. No tenderness to light or deep palpation. Liver edge, not palpable. Spleen edge, right and left kidney not palpable. Superior bladder margin non-tender. Special Testing:Negative Rovsing, McBurney, Cassia. Negative Heel Jar test. Left sided CVA tenderness. Digital rectal exam deferred. Negative malone turners or cullens sign Musculoskeletal: Normal ROM, no tenderness. Strength 5/5. Sensation intact. Pulses equal bilaterally 2+. Neurological: A&O x 3. CN II-XII intact, There are no obvious motor or sensory deficits. Coordination appears grossly intact. Speech is normal. Skin: Skin is warm and dry and no rashes or lesions are noted. Psychiatric: Cooperative, appropriate mood & affect, normal judgment. Limitations: no limitations Course Vital Signs 03/31/18 16:58 Temperature 98.3 F Pulse Rate 101 H Respiratory 18 Rate Blood Pressure 115/75 O2 Sat by Pulse 99 Oximetry Medical Decision Making - Medical Decision Making Pt recieved medication for pain mgmt, zofran and fluid bolus. KUB and renal US negative for radiolucent stone. UA not concerning for infected renal stone or pyelonephritis. Labs unremarkable. Patient did have left-sided CVA tenderness, remainder of abdominal exam unremarkable no signs of acute abdomen or peritoneal irritation. Pt appears well, non-toxic and given hx of pain identical to when she had kidney stones in the past with stone passage Sunday I feel pt pain is most likely due to a nonradiolucent kidney stone. Pt is to continue outpatient medications of percocet, toradol for pain mgmt and follow- up with her urologist Dr. Ortega in the next 2 days. Case discussed with Dr. Robert who agrees with impression and plan. - Lab Data Result diagrams: 03/31/18 17:49 03/31/18 17:49 Lab Results 03/31/18 03/31/18 03/31/18 Range/Units 17:49 17:49 17:49 WBC 10.2 (3.8-10.6) k/uL RBC 4.44 (3.80-5.40) m/uL Hgb 13.1 (11.4-16.0) gm/dL Hct 37.4 (34.0-46.0) % MCV 84.3 (80.0-100.0) fL MCH 29.6 (25.0-35.0) pg MCHC 35.1 (31.0-37.0) g/dL RDW 14.3 (11.5-15.5) % Plt Count 330 (150-450) k/uL Neutrophils % 60 % Lymphocytes % 32 % Monocytes % 3 % Eosinophils % 3 % Basophils % 0 % Neutrophils # 6.2 (1.3-7.7) k/uL Lymphocytes # 3.3 (1.0-4.8) k/uL Monocytes # 0.3 (0-1.0) k/uL Eosinophils # 0.3 (0-0.7) k/uL Basophils # 0.0 (0-0.2) k/uL Sodium 144 (137-145) mmol/L Potassium 3.8 (3.5-5.1) mmol/L Chloride 112 H (98-107) mmol/L Carbon Dioxide 20 L (22-30) mmol/L Anion Gap 12 mmol/L BUN 12 (7-17) mg/dL Creatinine 0.68 (0.52-1.04) mg/dL Est GFR (CKD-EPI)AfAm >90 (>60 ml/min/1.73 sqM) Est GFR (CKD-EPI)NonAf >90 (>60 ml/min/1.73 sqM) Glucose 134 H (74-99) mg/dL Calcium 10.1 (8.4-10.2) mg/dL Total Bilirubin 0.4 (0.2-1.3) mg/dL AST 25 (14-36) U/L ALT 23 (9-52) U/L Alkaline Phosphatase 92 (38-126) U/L Total Protein 7.2 (6.3-8.2) g/dL Albumin 4.3 (3.5-5.0) g/dL Urine Color Light [place] Urine Appearance Turbid H (Clear) Urine pH 8.0 (5.0-8.0) Ur Specific [place] 1.015 (1.001-1.035) Urine Protein 1+ H (Negative) Urine Glucose (UA) Negative (Negative) Urine Ketones Negative (Negative) Urine Blood Large H (Negative) Urine Nitrite Negative (Negative) Urine Bilirubin Negative (Negative) Urine Urobilinogen <2.0 (<2.0) mg/dL Ur Leukocyte Esterase Negative (Negative) Urine RBC >182 H (0-5) /hpf Ur Squamous Epith Cells 5 H (0-4) /hpf Amorphous Sediment Moderate H (None) /hpf Disposition Clinical Impression: Chronic left flank pain Disposition: HOME SELF-CARE Condition: Good Instructions: Kidney Stones (ED) Additional Instructions: Please use your home medication as discussed. Please follow-up with urology Sunday. Please return to emergency room if the symptoms increase or worsen or for any other concerns. Is patient prescribed a controlled substance at d/c from ED?: No Referrals: Melchor Stevens MD [Primary Care Provider] - 1-2 days Malachi Ortega MD [STAFF PHYSICIAN] - 1-2 days Time of Disposition: 20:02
--- NOTE | 2018-03-31 18:59 | US ---
EXAMINATION TYPE: US kidneys/renal and bladder DATE OF EXAM: 03/31/2018 COMPARISON: 10/29/2017 CLINICAL HISTORY: left flank pain, stone hx. Left flank pain, hematuria, history of kidney stones, ex am done portable in ER. EXAM MEASUREMENTS: Right Kidney: 11.3 x 4.6 x 5.2 cm Left Kidney: 11.3 x 5.4 x 6.1 cm Right Kidney: no hydronephrosis or masses seen Left Kidney: hydronephrosis Bladder: not fully distended, wnl as seen Bilateral Jets seen: no IMPRESSION: There is left-sided hydronephrosis that appears worse than old exam. No evidence of a renal mass.
--- NOTE | 2018-03-31 20:16 | XR ---
EXAMINATION TYPE: XR KUB DATE OF EXAM: 03/31/2018 COMPARISON: 03/20/2018 HISTORY: Abdominal pain TECHNIQUE: Single view upright FINDINGS: There is no sign of intestinal obstruction or pneumoperitoneum. Fecal pattern is normal. Heide ng bases are clear. There are no pathologic calcifications over the kidneys. IMPRESSION: Nonacute abdomen. No change.
[2018-03-31 20:30] VITALS: BP 119/72; PULSE 71; RESP 16; TEMP 97.9
== END 2018-03-31 20:30 | disposition home or self-care (01) ==
LOC: EC 16:46
DX: R10.9 Unspecified abdominal pain (principal); G89.29 Other chronic pain; R30.0 Dysuria; R31.9 Hematuria, unspecified; E11.9 Type 2 diabetes mellitus without complications; I10 Essential (primary) hypertension; E78.5 Hyperlipidemia, unspecified; F31.9 Bipolar disorder, unspecified; F43.10 Post-traumatic stress disorder, unspecified; F41.9 Anxiety disorder, unspecified; F17.200 Nicotine dependence, unspecified, uncomplicated; Z79.4 Long term (current) use of insulin; Z79.899 Other long term (current) drug therapy; Z88.0 Allergy status to penicillin; Z88.2 Allergy status to sulfonamides; Z88.8 Allergy status to other drugs, medicaments and biological substances; Z91.041 Radiographic dye allergy status; Z91.018 Allergy to other foods; Z90.49 Acquired absence of other specified parts of digestive tract; Z87.442 Personal history of urinary calculi; Z90.710 Acquired absence of both cervix and uterus
CPT/HCPCS: 36415; 80053; 85025; 81001; 74018; 76770; 99284; 96374; 96375 ×2; 96376; 96361 ×2; J2405; J1885; J2270

== ENCOUNTER 2018-04-28 10:26 | Emergency (ER) | payer OTHER ==
[2018-04-28 10:36] VITALS: BP 112/67; PULSE 92; RESP 16; TEMP 98.1
[2018-04-28] MEDS ORDERED: ONDANSETRON 4 MG/2 ML VIAL IVP STA (10:46)
[2018-04-28] MEDS ORDERED: MORPHINE SULFATE 4 MG/ML SYRINGE IVP STA (10:46)
[2018-04-28] MEDS ORDERED: SODIUM CHLORIDE 0.9% 1,000 ML IV STA (10:47)
--- NOTE | 2018-04-28 10:58 | ED ---
General Adult HPI - General Chief complaint: Abdominal Pain Stated complaint: kidney stone Time Seen by Provider: 04/28/18 10:39 Source: patient Mode of arrival: ambulatory Limitations: no limitations - History of Present Illness Initial comments: 42-year-old female with a past medical history of kidney stones, diabetes, hypertension presents to the emergency department for a chief complaint of left flank pain 3 days. Patient states she has seen a urologist for this who put her on an antibiotic as well as pain medication and Flomax. She states she cannot get the pain under control. She states she is feeling nauseous, denies vomiting. Patient states she feels "pressure" when she is urinating but denies any difficulty urinating or dysuria. Patient states she may have had a subjective fever last night at home. Patient states she has noticed blood in her urine over the past few days as well. Patient has no other complaints at this time including shortness of breath, chest pain, abdominal pain, headache, or visual changes. - Related Data Home Medications Medication Instructions Recorded Confirmed Insulin Glargine,Hum.rec.anlog 15 unit SQ HS 07/24/17 03/12/18 [Basaglar Kwikpen U-100] Insulin Glulisine [Apidra] 5 unit SQ AC-TID 07/29/17 03/12/18 OLANZapine [ZyPREXA] 10 mg PO BID@0900,2200 08/19/17 03/12/18 oxyCODONE-APAP 10-325MG [Percocet 1 tab PO QID PRN 08/29/17 03/12/18 10-325 mg] OXcarbazepine [Trileptal] 300 mg PO BID 02/05/18 03/12/18 ARIPiprazole [Abilify] 5 mg PO DAILY 03/12/18 03/12/18 Atorvastatin [Lipitor] 40 mg PO DAILY 03/12/18 03/12/18 Mirtazapine [Remeron] 15 mg PO HS 03/12/18 03/12/18 PARoxetine HCL [Paxil] 40 mg PO DAILY 03/12/18 03/12/18 Topiramate [Topamax] 100 mg PO BID 03/12/18 03/12/18 Previous Rx's Medication Instructions Recorded Lisinopril [Zestril] 10 mg PO HS tab 08/02/17 SUMAtriptan SUCCINATE [Imitrex] 100 mg PO DAILY PRN tab 08/02/17 metFORMIN HCL [Glucophage] 1,000 mg PO BID-W/MEALS tab 08/02/17 Ondansetron [Zofran ODT] 4 mg PO Q8HR PRN #15 tab 02/17/18 Ondansetron [Zofran ODT] 4 mg PO Q8HR #12 tab 03/12/18 Allergies Allergy/AdvReac Type Severity Reaction Status Date / Time bupropion HCl Allergy Rash/Hives Verified 04/28/18 10:36 [From Wellbutrin] divalproex sodium Allergy Unknown Verified 04/28/18 10:36 [From Depakote] fentanyl Allergy Swelling Verified 04/28/18 10:36 hydrocodone Allergy Itching Verified 04/28/18 10:36 Iodinated Contrast- Oral and Allergy Anaphylaxis Verified 04/28/18 10:36 IV Dye [Iodinated Contrast Media - IV Dye] orange juice [[place]] Allergy Rash/Hives Verified 04/28/18 10:36 Sulfa (Sulfonamide Allergy Rash/Hives Verified 04/28/18 10:36 Antibiotics) Penicillins AdvReac Nausea & Verified 04/28/18 10:36 Vomiting Review of Systems ROS Statement: Those systems with pertinent positive or pertinent negative responses have been documented in the HPI. ROS Other: All systems not noted in ROS Statement are negative. 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 History of Any Multi-Drug Resistant Organisms: None Reported Date of last positivie culture/infection: 05/14/17 MDRO Source:: ESBL URINE Past Surgical History: Bladder Surgery, Section, Cholecystectomy, Hysterectomy, Orthopedic Surgery, Tubal Ligation Additional Past Surgical History / Comment(s): R ovarian cystectomy, laparoscopic surgery for L ovary that had attached to the bowel, D&C, numerous lithotripsies, nephroscopies, cystoscopies and stents to ureters-none in place at this time, L robotic pyeloplasty with post op infection around kidney which then required a picc line/later removed (pt states was not MRSA), L rotator cuff repair, L wrist tendon surgery, colonoscopy Past Anesthesia/Blood Transfusion Reactions: Family History of Problems w/ Anesthesia Additional Past Anesthesia/Blood Transfusion Reaction / Comment(s): dad-hard time waking up due to enzyme problems in liver Past Psychological History: ADD/ADHD, Anxiety, Bipolar, Depression, PTSD Smoking Status: Current every day smoker Past Alcohol Use History: None Reported Past Drug Use History: None Reported - Past Family History Brother(s) Family Medical History: Cancer Additional Family Medical History / Comment(s): testicular Father Family Medical History: Coronary Artery Disease (CAD), CVA/TIA, Diabetes Mellitus, Renal Disease Additional Family Medical History / Comment(s): GLAUCOMA,NEUROPATHY HAD TRIPLE CABG, at 56yrs from renal disease. Mother Family Medical History: Hyperlipidemia Additional Family Medical History / Comment(s): DDD, HAD 3 vessel CABG AGE 54. General Exam Limitations: no limitations General appearance: alert, in no apparent distress Head exam: Present: atraumatic, normocephalic, normal inspection Eye exam: Present: normal appearance, PERRL, EOMI. Absent: scleral icterus, conjunctival injection, periorbital swelling ENT exam: Present: normal exam, mucous membranes moist Neck exam: Present: normal inspection, full ROM. Absent: tenderness, meningismus, lymphadenopathy Respiratory exam: Present: normal lung sounds bilaterally. Absent: respiratory distress, wheezes, rales, rhonchi, stridor Cardiovascular Exam: Present: regular rate, normal rhythm, normal heart sounds. Absent: systolic murmur, diastolic murmur, rubs, gallop, clicks GI/Abdominal exam: Present: soft, normal bowel sounds. Absent: distended, tenderness, guarding, rebound, rigid Back exam: Present: CVA tenderness (L). Absent: CVA tenderness (R), vertebral tenderness Neurological exam: Present: alert, oriented X3, CN II-XII intact Psychiatric exam: Present: normal affect, normal mood Course Vital Signs 04/28/18 10:35 Temperature 98.1 F Pulse Rate 92 Respiratory 16 Rate Blood Pressure 112/67 O2 Sat by Pulse 99 Oximetry Medical Decision Making - Medical Decision Making 42-year-old female well known to the emergency department for kidney stones presents to the emergency department for a chief complaint of left flank pain 3 days. Patient has seen urology for this and was given antibiotics as well as pain medication and Flomax. Patient does have left-sided flank tenderness and states that this is consistent with past kidney stones. Patient has received a multitude of CAT scans in the past and as symptoms are consistent with previous renal stones this will not be repeated. X-ray KUB was done which does show a mild improving ileus but the patient denies abdominal pain. CBC and CMP are unremarkable. Urine does show elevated white cells which are likely reactive with elevated red cells. Urine will be cultured. She will continue her antibiotic and pain medication from urology but at this time patient is afebrile and septic stone is not likely. She was given pain medication here as well as antinausea medication and is feeling much better. She states she is feeling well enough to go home. Patient states she is aware she can return here if she has worsening symptoms. Otherwise she will follow-up with her urologist in the next 1-2 days. - Lab Data Result diagrams: 04/28/18 11:20 04/28/18 11:20 Lab Results 04/28/18 04/28/18 04/28/18 Range/Units 11:20 11:20 11:20 WBC 9.3 (3.8-10.6) k/uL RBC 4.69 (3.80-5.40) m/uL Hgb 13.5 (11.4-16.0) gm/dL Hct 41.0 (34.0-46.0) % MCV 87.4 (80.0-100.0) fL MCH 28.7 (25.0-35.0) pg MCHC 32.8 (31.0-37.0) g/dL RDW 13.8 (11.5-15.5) % Plt Count 304 (150-450) k/uL Neutrophils % 60 % Lymphocytes % 32 % Monocytes % 5 % Eosinophils % 3 % Basophils % 1 % Neutrophils # 5.6 (1.3-7.7) k/uL Lymphocytes # 3.0 (1.0-4.8) k/uL Monocytes # 0.4 (0-1.0) k/uL Eosinophils # 0.3 (0-0.7) k/uL Basophils # 0.0 (0-0.2) k/uL Sodium 138 (137-145) mmol/L Potassium 4.3 (3.5-5.1) mmol/L Chloride 107 (98-107) mmol/L Carbon Dioxide 20 L (22-30) mmol/L Anion Gap 11 mmol/L BUN 14 (7-17) mg/dL Creatinine 0.70 (0.52-1.04) mg/dL Est GFR (CKD-EPI)AfAm >90 (>60 ml/min/1.73 sqM) Est GFR (CKD-EPI)NonAf >90 (>60 ml/min/1.73 sqM) Glucose 103 H (74-99) mg/dL Calcium 9.8 (8.4-10.2) mg/dL Total Bilirubin 0.4 (0.2-1.3) mg/dL AST 26 (14-36) U/L ALT 38 (9-52) U/L Alkaline Phosphatase 106 (38-126) U/L Total Protein 7.4 (6.3-8.2) g/dL Albumin 4.5 (3.5-5.0) g/dL Urine Color Light Red Urine Appearance Cloudy H (Clear) Urine pH 5.5 (5.0-8.0) Ur Specific [place] 1.019 (1.001-1.035) Urine Protein Trace H (Negative) Urine Glucose (UA) Negative (Negative) Urine Ketones Trace H (Negative) Urine Blood Large H (Negative) Urine Nitrite Negative (Negative) Urine Bilirubin Negative (Negative) Urine Urobilinogen <2.0 (<2.0) mg/dL Ur Leukocyte Esterase Trace H (Negative) Urine RBC >182 H (0-5) /hpf Urine WBC 115 H (0-5) /hpf Ur Squamous Epith Cells 3 (0-4) /hpf Disposition Clinical Impression: Renal colic Disposition: HOME SELF-CARE Condition: Good Instructions: Kidney Stones (ED) Additional Instructions: Please follow up with urology Dr Ortega in 1-2 days. Continue medications prescribed to by Dr. Ortega. Please return to the emergency department if you have any worsening symptoms. Is patient prescribed a controlled substance at d/c from ED?: No Referrals: Melchor Stevens MD [Primary Care Provider] - 1-2 days Malachi Ortega MD [STAFF PHYSICIAN] - 1-2 days Time of Disposition: 12:03
[2018-04-28 11:38] LABS: Basophils % (A) 1 %; Eosinophils # (A) 0.3 k/uL (0-0.7); Eosinophils % (A) 3 %; HGB 13.5 gm/dL (11.4-16.0); Lymphocytes % (A) 32 %; MCH 28.7 pg (25.0-35.0); MCHC 32.8 g/dL (31.0-37.0); MCV 87.4 fL (80.0-100.0); Mean Platelet Volume 6.5; Monocytes # (A) 0.4 k/uL (0-1.0); Monocytes % (A) 5 %; Neutrophils # (A) 5.6 k/uL (1.3-7.7); Neutrophils % (A) 60 %; Platelet Count 304 k/uL (150-450); RBC 4.69 m/uL (3.80-5.40); RDW 13.8 % (11.5-15.5); WBC 9.3 k/uL (3.8-10.6)
--- NOTE | 2018-04-28 11:41 | XR ---
EXAMINATION TYPE: XR KUB , 2 VIEWS DATE OF EXAM ORDERED: 04/28/2018 HISTORY: Pain. COMPARISON: Previous study dated 03/31/2018. FINDINGS: The lung bases are clear. Within the abdomen, the abdominal gas pattern is within normal limits. There are multiple air-fluid l evels. The gallbladder has been removed. There are phleboliths in the pelvis. There is a gentle levos coliosis. IMPRESSION: FINDINGS CONSISTENT WITH MILD ILEUS. THIS HAS IMPROVED FROM PREVIOUS.
[2018-04-28 11:43] LABS: Appearance,Urine Cloudy (Clear); Bilirubin,Urine Negative (Negative); Blood,Urine Large (Negative); Color,Urine Light Red; Glucose,Urine (UA) Negative (Negative); Ketones,Urine Trace (Negative); Leukocyte Esterase,Urine Trace (Negative); Nitrite,Urine Negative (Negative); PH, Urine 5.5 (5.0-8.0); Protein,Urine Trace (Negative); RBC,Urine >182 /hpf (0-5); Specific Gravity,Urine 1.019 (1.001-1.035); Squamous Epithelial Cell,Urine 3 /hpf (0-4); Urobilinogen,Urine <2.0 mg/dL (<2.0); WBC,Urine 115 /hpf (0-5)
[2018-04-28 11:46] LABS: ALT 38 U/L (9-52); AST 26 U/L (14-36); Albumin 4.5 g/dL (3.5-5.0); Alkaline Phosphatase 106 U/L (38-126); Anion Gap 11 mmol/L; Blood Urea Nitrogen 14 mg/dL (7-17); Calcium 9.8 mg/dL (8.4-10.2); Carbon Dioxide 20 mmol/L (22-30); Chloride 107 mmol/L (98-107); Glucose 103 mg/dL (74-99); Potassium 4.3 mmol/L (3.5-5.1); Sodium 138 mmol/L (137-145); Total Bilirubin 0.4 mg/dL (0.2-1.3); Total Protein 7.4 g/dL (6.3-8.2)
[2018-04-28] MEDS ORDERED: HYDROcodone/APAP 5-325MG 1 EACH TAB PO STA (12:02)
== END 2018-04-28 12:20 | disposition home or self-care (01) ==
LOC: EC 10:26
DX: N23 Unspecified renal colic (principal); K56.7 Ileus, unspecified; R82.998 Other abnormal findings in urine; E11.9 Type 2 diabetes mellitus without complications; Q61.3 Polycystic kidney, unspecified; I10 Essential (primary) hypertension; F31.9 Bipolar disorder, unspecified; F41.9 Anxiety disorder, unspecified; F43.10 Post-traumatic stress disorder, unspecified; F17.200 Nicotine dependence, unspecified, uncomplicated; Z88.0 Allergy status to penicillin; Z88.2 Allergy status to sulfonamides; Z88.5 Allergy status to narcotic agent; Z88.8 Allergy status to other drugs, medicaments and biological substances; Z91.018 Allergy to other foods; Z91.041 Radiographic dye allergy status; Z79.4 Long term (current) use of insulin; Z79.899 Other long term (current) drug therapy; Z87.442 Personal history of urinary calculi; Z98.890 Other specified postprocedural states; Z86.69 Personal history of other diseases of the nervous system and sense organs; Z90.49 Acquired absence of other specified parts of digestive tract; Z84.1 Family history of disorders of kidney and ureter
CPT/HCPCS: 36415; 80053; 85025; 81001; 87086; 74018; 99284; 96374; 96375; 96361; J2270; J2405

== ENCOUNTER 2018-06-04 12:36 | Emergency (ER) | payer OTHER ==
[2018-06-04] MEDS ORDERED: KETOROLAC 30 MG/ML 1 ML VIAL IVP STA (13:08)
[2018-06-04] MEDS ORDERED: SODIUM CHLORIDE 0.9% 1,000 ML IV STA (13:08)
[2018-06-04] MEDS ORDERED: ONDANSETRON 4 MG/2 ML VIAL IVP STA (13:08)
--- NOTE | 2018-06-04 13:13 | ED ---
General Adult HPI - General Chief complaint: Urogenital Stated complaint: Kidney stones Time Seen by Provider: 06/04/18 12:44 Source: patient, RN notes reviewed Mode of arrival: ambulatory Limitations: no limitations - History of Present Illness Initial comments: 43-year-old female well-known to this emergency department with a past medical history of kidney stones, polycystic kidney disorder, diabetes, hypertension presents to the emergency department for a chief complaint of left flank pain 3 days. Patient states she recently passed 2 kidney stones with the last one being yesterday. She states that today the pain has increased. She describes it as a sharp pain radiating into the groin. She denies any abdominal pain. She denies dysuria or fevers. She does admit to nausea and vomiting and states she feels dehydrated. Patient states she has an appointment with urology in 2 days. Patient has no other complaints at this time including shortness of breath , chest pain, abdominal pain, headache, or visual changes. - Related Data Home Medications Medication Instructions Recorded Confirmed Insulin Glargine,Hum.rec.anlog 15 unit SQ HS 07/24/17 06/04/18 [Basaglar Kwikpen U-100] Insulin Glulisine [Apidra] 5 unit SQ AC-TID 07/29/17 06/04/18 OLANZapine [ZyPREXA] 10 mg PO BID@0900,2200 08/19/17 06/04/18 oxyCODONE-APAP 10-325MG [Percocet 1 tab PO QID PRN 08/29/17 06/04/18 10-325 mg] OXcarbazepine [Trileptal] 300 mg PO BID 02/05/18 06/04/18 ARIPiprazole [Abilify] 5 mg PO DAILY 03/12/18 06/04/18 Atorvastatin [Lipitor] 40 mg PO DAILY 03/12/18 06/04/18 Mirtazapine [Remeron] 15 mg PO HS 03/12/18 06/04/18 PARoxetine HCL [Paxil] 40 mg PO DAILY 03/12/18 06/04/18 Topiramate [Topamax] 100 mg PO BID 03/12/18 06/04/18 PARoxetine [Paxil] 20 mg PO DAILY 06/04/18 06/04/18 Previous Rx's Medication Instructions Recorded Lisinopril [Zestril] 10 mg PO HS tab 08/02/17 SUMAtriptan SUCCINATE [Imitrex] 100 mg PO DAILY PRN tab 08/02/17 metFORMIN HCL [Glucophage] 1,000 mg PO BID-W/MEALS tab 08/02/17 Ondansetron [Zofran ODT] 4 mg PO Q8HR PRN #15 tab 02/17/18 Allergies Allergy/AdvReac Type Severity Reaction Status Date / Time bupropion HCl Allergy Rash/Hives Verified 06/04/18 13:35 [From Wellbutrin] divalproex sodium Allergy Unknown Verified 06/04/18 13:35 [From Depakote] fentanyl Allergy Swelling Verified 06/04/18 13:35 hydrocodone Allergy Itching Verified 06/04/18 13:35 Iodinated Contrast- Oral and Allergy Anaphylaxis Verified 06/04/18 13:35 IV Dye [Iodinated Contrast Media - IV Dye] orange juice [[place]] Allergy Rash/Hives Verified 06/04/18 13:35 Sulfa (Sulfonamide Allergy Rash/Hives Verified 06/04/18 13:35 Antibiotics) Penicillins AdvReac Nausea & Verified 06/04/18 13:35 Vomiting Review of Systems ROS Statement: Those systems with pertinent positive or pertinent negative responses have been documented in the HPI. ROS Other: All systems not noted in ROS Statement are negative. 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 History of Any Multi-Drug Resistant Organisms: None Reported Date of last positivie culture/infection: 05/14/17 MDRO Source:: ESBL URINE Past Surgical History: Bladder Surgery, Section, Cholecystectomy, Hysterectomy, Orthopedic Surgery, Tubal Ligation Additional Past Surgical History / Comment(s): R ovarian cystectomy, laparoscopic surgery for L ovary that had attached to the bowel, D&C, numerous lithotripsies, nephroscopies, cystoscopies and stents to ureters-none in place at this time, L robotic pyeloplasty with post op infection around kidney which then required a picc line/later removed (pt states was not MRSA), L rotator cuff repair, L wrist tendon surgery, colonoscopy Past Anesthesia/Blood Transfusion Reactions: Family History of Problems w/ Anesthesia Additional Past Anesthesia/Blood Transfusion Reaction / Comment(s): dad-hard time waking up due to enzyme problems in liver Past Psychological History: ADD/ADHD, Anxiety, Bipolar, Depression, PTSD Smoking Status: Current every day smoker Past Alcohol Use History: None Reported Past Drug Use History: None Reported - Past Family History Brother(s) Family Medical History: Cancer Additional Family Medical History / Comment(s): testicular Father Family Medical History: Coronary Artery Disease (CAD), CVA/TIA, Diabetes Mellitus, Renal Disease Additional Family Medical History / Comment(s): GLAUCOMA,NEUROPATHY HAD TRIPLE CABG, at 56yrs from renal disease. Mother Family Medical History: Hyperlipidemia Additional Family Medical History / Comment(s): DDD, HAD 3 vessel CABG AGE 54. General Exam Limitations: no limitations General appearance: alert, in no apparent distress Head exam: Present: atraumatic, normocephalic, normal inspection Eye exam: Present: normal appearance, PERRL, EOMI. Absent: scleral icterus, conjunctival injection, periorbital swelling ENT exam: Present: normal exam, mucous membranes moist Neck exam: Present: normal inspection, full ROM. Absent: tenderness, meningismus, lymphadenopathy Respiratory exam: Present: normal lung sounds bilaterally. Absent: respiratory distress, wheezes, rales, rhonchi, stridor Cardiovascular Exam: Present: regular rate, normal rhythm, normal heart sounds. Absent: systolic murmur, diastolic murmur, rubs, gallop, clicks GI/Abdominal exam: Present: soft, normal bowel sounds. Absent: distended, tenderness, guarding, rebound, rigid Back exam: Present: CVA tenderness (L). Absent: CVA tenderness (R), vertebral tenderness Neurological exam: Present: alert, oriented X3, CN II-XII intact Psychiatric exam: Present: normal affect, normal mood Course Vital Signs 06/04/18 12:38 Temperature 98.4 F Pulse Rate 105 H Respiratory 16 Rate Blood Pressure 113/78 O2 Sat by Pulse 100 Oximetry Medical Decision Making - Medical Decision Making 43-year-old female well-known to this emergency department for a chief complaint of renal colic. Patient states she passed 2 stones this in the past few days and is still having flank pain. She denies dysuria or fevers. CBC and CMP are unremarkable. Urine does show blood, no evidence of infection. Patient has a known history of kidney stones. X-ray KUB was ordered as patient is seeing urologist in 2 days. X-ray KUB does show incidental findings of air- fluid levels, however this is without bowel distention. Patient has no abdominal tenderness. Her last bowel movement was earlier today and was normal. She is passing gas normally, no concern for obstruction. She was given morphine as she already took Toradol at home. She is having much better and agrees to go home at this time. She will follow up with urologist and return if she has worsening symptoms. - Lab Data Result diagrams: 06/04/18 13:25 06/04/18 13:25 Lab Results 06/04/18 06/04/18 06/04/18 Range/Units 13:25 13:25 13:25 WBC 11.3 H (3.8-10.6) k/uL RBC 4.68 (3.80-5.40) m/uL Hgb 13.3 (11.4-16.0) gm/dL Hct 40.1 (34.0-46.0) % MCV 85.6 (80.0-100.0) fL MCH 28.5 (25.0-35.0) pg MCHC 33.3 (31.0-37.0) g/dL RDW 13.4 (11.5-15.5) % Plt Count 296 (150-450) k/uL Neutrophils % 60 % Lymphocytes % 33 % Monocytes % 4 % Eosinophils % 2 % Basophils % 1 % Neutrophils # 6.7 (1.3-7.7) k/uL Lymphocytes # 3.7 (1.0-4.8) k/uL Monocytes # 0.5 (0-1.0) k/uL Eosinophils # 0.2 (0-0.7) k/uL Basophils # 0.1 (0-0.2) k/uL Sodium 138 (137-145) mmol/L Potassium 4.2 (3.5-5.1) mmol/L Chloride 107 (98-107) mmol/L Carbon Dioxide 20 L (22-30) mmol/L Anion Gap 11 mmol/L BUN 11 (7-17) mg/dL Creatinine 0.66 (0.52-1.04) mg/dL Est GFR (CKD-EPI)AfAm >90 (>60 ml/min/1.73 sqM) Est GFR (CKD-EPI)NonAf >90 (>60 ml/min/1.73 sqM) Glucose 96 (74-99) mg/dL Calcium 9.6 (8.4-10.2) mg/dL Total Bilirubin 0.2 (0.2-1.3) mg/dL AST 25 (14-36) U/L ALT 39 (9-52) U/L Alkaline Phosphatase 110 (38-126) U/L Total Protein 7.0 (6.3-8.2) g/dL Albumin 4.3 (3.5-5.0) g/dL Amylase 47 (30-110) U/L Lipase 102 (23-300) U/L Urine Color Yellow Urine Appearance Cloudy H (Clear) Urine pH 5.5 (5.0-8.0) Ur Specific [place] 1.017 (1.001-1.035) Urine Protein Negative (Negative) Urine Glucose (UA) Negative (Negative) Urine Ketones Negative (Negative) Urine Blood Moderate H (Negative) Urine Nitrite Negative (Negative) Urine Bilirubin Negative (Negative) Urine Urobilinogen 2.0 (<2.0) mg/dL Ur Leukocyte Esterase Negative (Negative) Urine RBC 63 H (0-5) /hpf Urine WBC 1 (0-5) /hpf Ur Squamous Epith Cells 12 H (0-4) /hpf Calcium Oxalate Crystal Occasional H (None) /hpf Urine Bacteria Rare H (None) /hpf Urine Mucus Rare H (None) /hpf Disposition Clinical Impression: Renal colic on left side Disposition: HOME SELF-CARE Condition: Good Additional Instructions: Please take medications at home. Please follow-up with urology in 2 days at your appointment. Please return to the emergency department if you have worsening symptoms. Is patient prescribed a controlled substance at d/c from ED?: No Referrals: Melchor Stevens MD [Primary Care Provider] - 1-2 days Malachi Ortega MD [STAFF PHYSICIAN] - 1-2 days Time of Disposition: 14:28
[2018-06-04] MEDS ORDERED: MORPHINE SULFATE 4 MG/ML SYRINGE IVP STA (13:24)
[2018-06-04 13:42] LABS: Basophils # (A) 0.1 k/uL (0-0.2); Basophils % (A) 1 %; Eosinophils # (A) 0.2 k/uL (0-0.7); Eosinophils % (A) 2 %; HCT 40.1 % (34.0-46.0); HGB 13.3 gm/dL (11.4-16.0); Lymphocytes # (A) 3.7 k/uL (1.0-4.8); Lymphocytes % (A) 33 %; MCH 28.5 pg (25.0-35.0); MCHC 33.3 g/dL (31.0-37.0); MCV 85.6 fL (80.0-100.0); Mean Platelet Volume 6.6; Monocytes # (A) 0.5 k/uL (0-1.0); Monocytes % (A) 4 %; Neutrophils # (A) 6.7 k/uL (1.3-7.7); Neutrophils % (A) 60 %; Platelet Count 296 k/uL (150-450); RBC 4.68 m/uL (3.80-5.40); RDW 13.4 % (11.5-15.5); WBC 11.3 k/uL (3.8-10.6)
[2018-06-04 13:45] LABS: Appearance,Urine Cloudy (Clear); Bacteria,Urine Rare /hpf; Bilirubin,Urine Negative (Negative); Blood,Urine Moderate (Negative); Calcium Oxalate Crystals,Urine Occasional /hpf; Color,Urine Yellow; Glucose,Urine (UA) Negative (Negative); Ketones,Urine Negative (Negative); Leukocyte Esterase,Urine Negative (Negative); Mucus,Urine Rare /hpf; Nitrite,Urine Negative (Negative); PH, Urine 5.5 (5.0-8.0); Protein,Urine Negative (Negative); RBC,Urine 63 /hpf (0-5); Specific Gravity,Urine 1.017 (1.001-1.035); Squamous Epithelial Cell,Urine 12 /hpf (0-4); WBC,Urine 1 /hpf (0-5)
[2018-06-04 13:52] LABS: Anion Gap 11 mmol/L; Blood Urea Nitrogen 11 mg/dL (7-17); Carbon Dioxide 20 mmol/L (22-30); Chloride 107 mmol/L (98-107); Glucose 96 mg/dL (74-99); Potassium 4.2 mmol/L (3.5-5.1); Sodium 138 mmol/L (137-145)
[2018-06-04 13:53] LABS: ALT 39 U/L (9-52); AST 25 U/L (14-36); Albumin 4.3 g/dL (3.5-5.0); Alkaline Phosphatase 110 U/L (38-126); Amylase 47 U/L (30-110); Calcium 9.6 mg/dL (8.4-10.2); Lipase 102 U/L (23-300); Total Bilirubin 0.2 mg/dL (0.2-1.3)
--- NOTE | 2018-06-04 13:55 | XR ---
Abdomen HISTORY: Pain Frontal view of the abdomen submitted on 2 images and correlated prior abdomen 04/28/2018 There is a mild levoscoliosis. Surgical clips are present in the right upper quadrant. There are air- fluid levels without bowel distention. No evident pneumoperitoneum. Probable phleboliths present in t he pelvis. Lung bases are clear. IMPRESSION: Correlate for enteritis or ileus, follow-up as indicated if bowel obstruction is suspecte d clinically.
[2018-06-04 15:04] VITALS: BP 99/63; PULSE 86; RESP 18; TEMP 97.6
== END 2018-06-04 14:59 | disposition home or self-care (01) ==
LOC: EC 12:36
DX: N23 Unspecified renal colic (principal); Q61.3 Polycystic kidney, unspecified; E11.9 Type 2 diabetes mellitus without complications; I10 Essential (primary) hypertension; F31.9 Bipolar disorder, unspecified; F41.9 Anxiety disorder, unspecified; F43.10 Post-traumatic stress disorder, unspecified; F17.200 Nicotine dependence, unspecified, uncomplicated; Z88.0 Allergy status to penicillin; Z88.2 Allergy status to sulfonamides; Z88.5 Allergy status to narcotic agent; Z88.8 Allergy status to other drugs, medicaments and biological substances; Z91.018 Allergy to other foods; Z91.041 Radiographic dye allergy status; Z79.4 Long term (current) use of insulin; Z79.899 Other long term (current) drug therapy; Z86.69 Personal history of other diseases of the nervous system and sense organs; Z87.442 Personal history of urinary calculi; Z90.49 Acquired absence of other specified parts of digestive tract; Z98.890 Other specified postprocedural states; Z53.8 Procedure and treatment not carried out for other reasons; Z84.1 Family history of disorders of kidney and ureter
CPT/HCPCS: 36415; 80053; 82150; 83690; 85025; 81001; 74018; 99284; 96374; 96375; 96361 ×2; J2270; J2405

== ENCOUNTER 2018-06-16 04:24 | Emergency (ER) | payer OTHER ==
[2018-06-16 04:44] VITALS: RESP 18; TEMP 98.1
[2018-06-16] MEDS ORDERED: KETOROLAC 30 MG/ML 1 ML VIAL IVP STA (07:06)
[2018-06-16] MEDS ORDERED: MORPHINE SULFATE 4 MG/ML SYRINGE IVP STA (07:06)
[2018-06-16] MEDS ORDERED: SODIUM CHLORIDE 0.9% 1,000 ML IV ONE (07:06)
[2018-06-16] MEDS ORDERED: ONDANSETRON 4 MG/2 ML VIAL IVP STA (07:07)
[2018-06-16 08:16] LABS: ALT 28 U/L (9-52); AST 18 U/L (14-36); Albumin 3.9 g/dL (3.5-5.0); Alkaline Phosphatase 106 U/L (38-126); Amorphous Sediment,Urine Occasional /hpf; Anion Gap 8 mmol/L; Appearance,Urine Cloudy (Clear); Bacteria,Urine Rare /hpf; Bilirubin,Urine Negative (Negative); Blood Urea Nitrogen 9 mg/dL (7-17); Blood,Urine Moderate (Negative); Calcium 9.6 mg/dL (8.4-10.2); Carbon Dioxide 21 mmol/L (22-30); Chloride 113 mmol/L (98-107); Color,Urine Light Yellow; Glucose 119 mg/dL (74-99); Glucose,Urine (UA) Negative (Negative); Ketones,Urine Negative (Negative); Leukocyte Esterase,Urine Trace (Negative); Mucus,Urine Rare /hpf; Nitrite,Urine Negative (Negative); Potassium 4.2 mmol/L (3.5-5.1); Protein,Urine Negative (Negative); RBC,Urine 1 /hpf (0-5); Sodium 142 mmol/L (137-145); Specific Gravity,Urine 1.004 (1.001-1.035); Squamous Epithelial Cell,Urine 4 /hpf (0-4); Total Bilirubin 0.3 mg/dL (0.2-1.3); Total Protein 6.8 g/dL (6.3-8.2); Urobilinogen,Urine <2.0 mg/dL (<2.0); WBC,Urine 2 /hpf (0-5)
[2018-06-16 08:21] LABS: Basophils % (A) 0 %; Eosinophils # (A) 0.3 k/uL (0-0.7); Eosinophils % (A) 3 %; HCT 38.4 % (34.0-46.0); HGB 12.7 gm/dL (11.4-16.0); Lymphocytes # (A) 2.7 k/uL (1.0-4.8); Lymphocytes % (A) 29 %; MCH 28.4 pg (25.0-35.0); MCHC 33.1 g/dL (31.0-37.0); MCV 85.8 fL (80.0-100.0); Mean Platelet Volume 6.1; Monocytes # (A) 0.4 k/uL (0-1.0); Monocytes % (A) 4 %; Neutrophils % (A) 63 %; Platelet Count 297 k/uL (150-450); RBC 4.48 m/uL (3.80-5.40); RDW 13.3 % (11.5-15.5); WBC 9.5 k/uL (3.8-10.6)
--- NOTE | 2018-06-16 08:39 | XR ---
EXAMINATION TYPE: XR KUB DATE OF EXAM: 06/16/2018 8:35 AM CLINICAL HISTORY: Left flank pain. TECHNIQUE: Two Upright KUB images of the abdomen are obtained. COMPARISON: Abdominal x-ray from 12 days ago FINDINGS: Scattered gas is seen in non-distended small bowel loops. Gas and fecal material is seen in non-distended colon. Cholecystectomy clips are redemonstrated. No suspicious calcification pneumoper itoneum is seen. Lung bases are clear. Right-sided pelvic phleboliths are redemonstrated. Osseous str uctures are intact. IMPRESSION: Overall nonobstructive bowel gas pattern. No definitive nephrolithiasis.
--- NOTE | 2018-06-16 08:53 | ED ---
General Adult HPI - General Chief complaint: Abdominal Pain Stated complaint: Abd Pain, Kidney Stone Time Seen by Provider: 06/16/18 06:42 Source: patient, RN notes reviewed, old records reviewed Mode of arrival: ambulatory Limitations: no limitations - History of Present Illness Initial comments: 43-year-old female with chronic left flank pain and history of kidney stones presents with worsening flank pain. Patient denies fever chills. She has had nausea and vomiting. Pain is consistent with previous kidney stones. She does state that over the past 24 she did pass one small kidney stone which she has saved. She also reports hematuria. No anterior abdominal pain. No chest pain or dyspnea. - Related Data Home Medications Medication Instructions Recorded Confirmed Insulin Glargine,Hum.rec.anlog 15 unit SQ HS 07/24/17 06/04/18 [Basaglar Kwikpen U-100] Insulin Glulisine [Apidra] 5 unit SQ AC-TID 07/29/17 06/04/18 OLANZapine [ZyPREXA] 10 mg PO BID@0900,2200 08/19/17 06/04/18 oxyCODONE-APAP 10-325MG [Percocet 1 tab PO QID PRN 08/29/17 06/04/18 10-325 mg] OXcarbazepine [Trileptal] 300 mg PO BID 02/05/18 06/04/18 ARIPiprazole [Abilify] 5 mg PO DAILY 03/12/18 06/04/18 Atorvastatin [Lipitor] 40 mg PO DAILY 03/12/18 06/04/18 Mirtazapine [Remeron] 15 mg PO HS 03/12/18 06/04/18 PARoxetine HCL [Paxil] 40 mg PO DAILY 03/12/18 06/04/18 Topiramate [Topamax] 100 mg PO BID 03/12/18 06/04/18 PARoxetine [Paxil] 20 mg PO DAILY 06/04/18 06/04/18 Previous Rx's Medication Instructions Recorded Lisinopril [Zestril] 10 mg PO HS tab 08/02/17 SUMAtriptan SUCCINATE [Imitrex] 100 mg PO DAILY PRN tab 08/02/17 metFORMIN HCL [Glucophage] 1,000 mg PO BID-W/MEALS tab 08/02/17 Ondansetron [Zofran ODT] 4 mg PO Q8HR PRN #15 tab 02/17/18 Allergies Allergy/AdvReac Type Severity Reaction Status Date / Time bupropion HCl Allergy Rash/Hives Verified 06/16/18 04:44 [From Wellbutrin] divalproex sodium Allergy Unknown Verified 06/16/18 04:44 [From Depakote] fentanyl Allergy Swelling Verified 06/16/18 04:44 hydrocodone Allergy Itching Verified 06/16/18 04:44 Iodinated Contrast- Oral and Allergy Anaphylaxis Verified 06/16/18 04:44 IV Dye [Iodinated Contrast Media - IV Dye] orange juice [Webb] Allergy Rash/Hives Verified 06/16/18 04:44 Sulfa (Sulfonamide Allergy Rash/Hives Verified 06/16/18 04:44 Antibiotics) Penicillins AdvReac Nausea & Verified 06/16/18 04:44 Vomiting Review of Systems ROS Statement: Those systems with pertinent positive or pertinent negative responses have been documented in the HPI. ROS Other: All systems not noted in ROS Statement are negative. 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 History of Any Multi-Drug Resistant Organisms: None Reported Date of last positivie culture/infection: 05/14/17 MDRO Source:: ESBL URINE Past Surgical History: Bladder Surgery, Section, Cholecystectomy, Hysterectomy, Orthopedic Surgery, Tubal Ligation Additional Past Surgical History / Comment(s): R ovarian cystectomy, laparoscopic surgery for L ovary that had attached to the bowel, D&C, numerous lithotripsies, nephroscopies, cystoscopies and stents to ureters-none in place at this time, L robotic pyeloplasty with post op infection around kidney which then required a picc line/later removed (pt states was not MRSA), L rotator cuff repair, L wrist tendon surgery, colonoscopy Past Anesthesia/Blood Transfusion Reactions: Family History of Problems w/ Anesthesia Additional Past Anesthesia/Blood Transfusion Reaction / Comment(s): dad-hard time waking up due to enzyme problems in liver Past Psychological History: ADD/ADHD, Anxiety, Bipolar, Depression, PTSD Smoking Status: Current every day smoker Past Alcohol Use History: None Reported Past Drug Use History: None Reported - Past Family History Brother(s) Family Medical History: Cancer Additional Family Medical History / Comment(s): testicular Father Family Medical History: Coronary Artery Disease (CAD), CVA/TIA, Diabetes Mellitus, Renal Disease Additional Family Medical History / Comment(s): GLAUCOMA,NEUROPATHY HAD TRIPLE CABG, at 56yrs from renal disease. Mother Family Medical History: Hyperlipidemia Additional Family Medical History / Comment(s): DDD, HAD 3 vessel CABG AGE 54. General Exam Limitations: no limitations General appearance: alert, in no apparent distress Head exam: Present: atraumatic, normocephalic Eye exam: Present: normal appearance, PERRL ENT exam: Present: normal exam Neck exam: Present: normal inspection. Absent: tenderness, meningismus Respiratory exam: Present: normal lung sounds bilaterally. Absent: respiratory distress Cardiovascular Exam: Present: regular rate, normal rhythm GI/Abdominal exam: Present: soft. Absent: distended Extremities exam: Present: normal inspection, normal capillary refill Back exam: Present: CVA tenderness (L) Neurological exam: Present: alert, oriented X3, CN II-XII intact. Absent: motor sensory deficit Psychiatric exam: Present: normal affect, normal mood Skin exam: Present: warm, dry, intact. Absent: cyanosis, diaphoretic Course Vital Signs 06/16/18 04:42 Temperature 98.1 F Pulse Rate 77 Respiratory 18 Rate Blood Pressure 106/67 O2 Sat by Pulse 100 Oximetry - Reevaluation(s) Reevaluation #1: 06/16/18 08:51 On reevaluation patient is feeling better. Medical Decision Making - Medical Decision Making 43-year-old female history kidney stones, chronic left flank pain with worsening pain. CBC is obtained, normal white count, stable hemoglobin, normal CMP, urinalysis is negative for hematuria. X-ray negative for definitive stone , no acute process. Patient feeling better after symptomatically treatment. Will follow-up with primary care physician. - Lab Data Result diagrams: 06/16/18 07:55 06/16/18 07:55 Lab Results 06/16/18 06/16/18 06/16/18 Range/Units 07:55 07:55 07:55 WBC 9.5 (3.8-10.6) k/uL RBC 4.48 (3.80-5.40) m/uL Hgb 12.7 (11.4-16.0) gm/dL Hct 38.4 (34.0-46.0) % MCV 85.8 (80.0-100.0) fL MCH 28.4 (25.0-35.0) pg MCHC 33.1 (31.0-37.0) g/dL RDW 13.3 (11.5-15.5) % Plt Count 297 (150-450) k/uL Neutrophils % 63 % Lymphocytes % 29 % Monocytes % 4 % Eosinophils % 3 % Basophils % 0 % Neutrophils # 6.0 (1.3-7.7) k/uL Lymphocytes # 2.7 (1.0-4.8) k/uL Monocytes # 0.4 (0-1.0) k/uL Eosinophils # 0.3 (0-0.7) k/uL Basophils # 0.0 (0-0.2) k/uL Sodium 142 (137-145) mmol/L Potassium 4.2 (3.5-5.1) mmol/L Chloride 113 H (98-107) mmol/L Carbon Dioxide 21 L (22-30) mmol/L Anion Gap 8 mmol/L BUN 9 (7-17) mg/dL Creatinine 0.68 (0.52-1.04) mg/dL Est GFR (CKD-EPI)AfAm >90 (>60 ml/min/1.73 sqM) Est GFR (CKD-EPI)NonAf >90 (>60 ml/min/1.73 sqM) Glucose 119 H (74-99) mg/dL Calcium 9.6 (8.4-10.2) mg/dL Total Bilirubin 0.3 (0.2-1.3) mg/dL AST 18 (14-36) U/L ALT 28 (9-52) U/L Alkaline Phosphatase 106 (38-126) U/L Total Protein 6.8 (6.3-8.2) g/dL Albumin 3.9 (3.5-5.0) g/dL Urine Color Light Yellow Urine Appearance Cloudy H (Clear) Urine pH 7.0 (5.0-8.0) Ur Specific [place] 1.004 (1.001-1.035) Urine Protein Negative (Negative) Urine Glucose (UA) Negative (Negative) Urine Ketones Negative (Negative) Urine Blood Moderate H (Negative) Urine Nitrite Negative (Negative) Urine Bilirubin Negative (Negative) Urine Urobilinogen <2.0 (<2.0) mg/dL Ur Leukocyte Esterase Trace H (Negative) Urine RBC 1 (0-5) /hpf Urine WBC 2 (0-5) /hpf Ur Squamous Epith Cells 4 (0-4) /hpf Amorphous Sediment Occasional H (None) /hpf Urine Bacteria Rare H (None) /hpf Urine Mucus Rare H (None) /hpf Disposition Clinical Impression: Flank pain, Nephrolithiasis, Left flank pain Disposition: HOME SELF-CARE Condition: Good Instructions: Abdominal Pain (ED), Kidney Stones (ED), Renal Colic (ED) Is patient prescribed a controlled substance at d/c from ED?: No Referrals: Melchor Stevens MD [Primary Care Provider] - 1-2 days Time of Disposition: 08:53
[2018-06-16 10:03] VITALS: BP 95/60; PULSE 65
== END 2018-06-16 09:57 | disposition home or self-care (01) ==
LOC: EC 04:24
DX: N20.0 Calculus of kidney (principal); E11.9 Type 2 diabetes mellitus without complications; I10 Essential (primary) hypertension; F31.9 Bipolar disorder, unspecified; F41.9 Anxiety disorder, unspecified; F43.10 Post-traumatic stress disorder, unspecified; F17.200 Nicotine dependence, unspecified, uncomplicated; Z79.4 Long term (current) use of insulin; Z79.899 Other long term (current) drug therapy; Z88.8 Allergy status to other drugs, medicaments and biological substances; Z88.5 Allergy status to narcotic agent; Z88.0 Allergy status to penicillin; Z88.2 Allergy status to sulfonamides; Z91.041 Radiographic dye allergy status; Z91.018 Allergy to other foods
CPT/HCPCS: 99284; 96374; 96375 ×2; 96361; 36415; 80053; 85025; 81001; 74018; J2270; J2405; J1885

== ENCOUNTER 2018-07-09 18:48 | Emergency (ER) | payer OTHER ==
[2018-07-09 18:51] VITALS: RESP 18; TEMP 98.5
[2018-07-09] MEDS ORDERED: SODIUM CHLORIDE 0.9% 2,000 ML IV STA (18:59)
[2018-07-09] MEDS ORDERED: ONDANSETRON 4 MG/2 ML VIAL IVP STA (19:35)
[2018-07-09] MEDS ORDERED: MORPHINE SULFATE 4 MG/ML SYRINGE IVP STA (19:36)
[2018-07-09] MEDS ORDERED: KETOROLAC 30 MG/ML 1 ML VIAL IVP STA (19:36)
[2018-07-09] MEDS ORDERED: diphenhydrAMINE 50 MG/ML 1 ML VIAL IVP STA (19:36)
[2018-07-09 19:45] LABS: Basophils % (A) 0 %; Eosinophils # (A) 0.3 k/uL (0-0.7); Eosinophils % (A) 3 %; HCT 40.4 % (34.0-46.0); HGB 13.6 gm/dL (11.4-16.0); Lymphocytes # (A) 3.3 k/uL (1.0-4.8); Lymphocytes % (A) 32 %; MCH 29.1 pg (25.0-35.0); MCHC 33.7 g/dL (31.0-37.0); MCV 86.3 fL (80.0-100.0); Mean Platelet Volume 6.5; Monocytes # (A) 0.4 k/uL (0-1.0); Monocytes % (A) 4 %; Neutrophils # (A) 6.1 k/uL (1.3-7.7); Neutrophils % (A) 59 %; Platelet Count 298 k/uL (150-450); RBC 4.69 m/uL (3.80-5.40); RDW 13.4 % (11.5-15.5); WBC 10.2 k/uL (3.8-10.6)
[2018-07-09 19:49] LABS: Amorphous Sediment,Urine Rare /hpf; Appearance,Urine Turbid (Clear); Bilirubin,Urine Negative (Negative); Blood,Urine Negative (Negative); Color,Urine Light Yellow; Glucose,Urine (UA) Negative (Negative); Ketones,Urine Negative (Negative); Leukocyte Esterase,Urine Negative (Negative); Nitrite,Urine Negative (Negative); PH, Urine 7.5 (5.0-8.0); Protein,Urine Negative (Negative); Specific Gravity,Urine 1.007 (1.001-1.035); Squamous Epithelial Cell,Urine 7 /hpf (0-4); Urobilinogen,Urine <2.0 mg/dL (<2.0); WBC,Urine 2 /hpf (0-5)
[2018-07-09 19:56] LABS: ALT 28 U/L (9-52); AST 20 U/L (14-36); Albumin 4.4 g/dL (3.5-5.0); Alkaline Phosphatase 94 U/L (38-126); Anion Gap 11 mmol/L; Blood Urea Nitrogen 11 mg/dL (7-17); Calcium 10.2 mg/dL (8.4-10.2); Carbon Dioxide 21 mmol/L (22-30); Chloride 111 mmol/L (98-107); Glucose 123 mg/dL (74-99); Lipase 193 U/L (23-300); Sodium 143 mmol/L (137-145); Total Bilirubin 0.3 mg/dL (0.2-1.3); Total Protein 7.2 g/dL (6.3-8.2)
--- NOTE | 2018-07-09 20:22 | ED ---
Abdominal Pain HPI - General Chief Complaint: Abdominal Pain Stated Complaint: kidney stones Time Seen by Provider: 07/09/18 18:58 Source: patient, RN notes reviewed Mode of arrival: ambulatory Limitations: no limitations - History of Present Illness Initial Comments: 43-year-old female presents emergency dept chief complaint of left flank pain. Patient has long history kidney stones, stents and kidney infections. Patient states pain started states that she passed 2 stones earlier today. Patient reports nausea vomiting. Patient denies any fevers chills no diarrhea no constipation. Denies any chest pain or shortness breath. - Related Data Home Medications Medication Instructions Recorded Confirmed OLANZapine [ZyPREXA] 10 mg PO BID@0900,2200 08/19/17 07/09/18 oxyCODONE-APAP 10-325MG [Percocet 1 tab PO QID PRN 08/29/17 07/09/18 10-325 mg] OXcarbazepine [Trileptal] 300 mg PO BID 02/05/18 07/09/18 ARIPiprazole [Abilify] 5 mg PO DAILY 03/12/18 07/09/18 Atorvastatin [Lipitor] 40 mg PO DAILY 03/12/18 07/09/18 Mirtazapine [Remeron] 15 mg PO HS 03/12/18 07/09/18 PARoxetine HCL [Paxil] 40 mg PO DAILY 03/12/18 07/09/18 Topiramate [Topamax] 100 mg PO BID 03/12/18 07/09/18 PARoxetine [Paxil] 20 mg PO DAILY 06/04/18 07/09/18 Previous Rx's Medication Instructions Recorded Lisinopril [Zestril] 10 mg PO HS tab 08/02/17 SUMAtriptan SUCCINATE [Imitrex] 100 mg PO DAILY PRN tab 08/02/17 metFORMIN HCL [Glucophage] 1,000 mg PO BID-W/MEALS tab 08/02/17 Allergies Allergy/AdvReac Type Severity Reaction Status Date / Time bupropion HCl Allergy Rash/Hives Verified 07/09/18 19:10 [From Wellbutrin] divalproex sodium Allergy Unknown Verified 07/09/18 19:10 [From Depakote] fentanyl Allergy Swelling Verified 07/09/18 19:10 hydrocodone Allergy Itching Verified 01/15/19 19:10 Iodinated Contrast- Oral and Allergy Anaphylaxis Verified 07/09/18 19:10 IV Dye [Iodinated Contrast Media - IV Dye] orange juice [Glenn] Allergy Rash/Hives Verified 07/09/18 19:10 Sulfa (Sulfonamide Allergy Rash/Hives Verified 07/09/18 19:10 Antibiotics) Penicillins AdvReac Nausea & Verified 07/09/18 19:10 Vomiting Review of Systems ROS Statement: Those systems with pertinent positive or pertinent negative responses have been documented in the HPI. ROS Other: All systems not noted in ROS Statement are negative. 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 History of Any Multi-Drug Resistant Organisms: None Reported Date of last positivie culture/infection: 05/14/17 MDRO Source:: ESBL URINE Past Surgical History: Bladder Surgery, Section, Cholecystectomy, Hysterectomy, Orthopedic Surgery, Tubal Ligation Additional Past Surgical History / Comment(s): R ovarian cystectomy, laparoscopic surgery for L ovary that had attached to the bowel, D&C, numerous lithotripsies, nephroscopies, cystoscopies and stents to ureters-none in place at this time, L robotic pyeloplasty with post op infection around kidney which then required a picc line/later removed (pt states was not MRSA), L rotator cuff repair, L wrist tendon surgery, colonoscopy Past Anesthesia/Blood Transfusion Reactions: Family History of Problems w/ Anesthesia Additional Past Anesthesia/Blood Transfusion Reaction / Comment(s): dad-hard time waking up due to enzyme problems in liver Past Psychological History: ADD/ADHD, Anxiety, Bipolar, Depression, PTSD Smoking Status: Current every day smoker Past Alcohol Use History: None Reported Past Drug Use History: None Reported - Past Family History Brother(s) Family Medical History: Cancer Additional Family Medical History / Comment(s): testicular Father Family Medical History: Coronary Artery Disease (CAD), CVA/TIA, Diabetes Mellitus, Renal Disease Additional Family Medical History / Comment(s): GLAUCOMA,NEUROPATHY HAD TRIPLE CABG, at 56yrs from renal disease. Mother Family Medical History: Hyperlipidemia Additional Family Medical History / Comment(s): DDD, HAD 3 vessel CABG AGE 54. General Exam Limitations: no limitations General appearance: alert, in no apparent distress Head exam: Present: atraumatic, normocephalic, normal inspection Neck exam: Present: normal inspection. Absent: tenderness, meningismus, lymphadenopathy Respiratory exam: Present: normal lung sounds bilaterally. Absent: respiratory distress, wheezes, rales, rhonchi, stridor Cardiovascular Exam: Present: regular rate, normal rhythm, normal heart sounds. Absent: systolic murmur, diastolic murmur, rubs, gallop, clicks GI/Abdominal exam: Present: soft, tenderness, normal bowel sounds. Absent: distended, guarding, rebound, rigid Back exam: Present: CVA tenderness (L). Absent: CVA tenderness (R) Skin exam: Present: warm, dry, intact, normal color. Absent: rash Course Vital Signs 07/09/18 18:50 Temperature 98.5 F Pulse Rate 100 Respiratory 18 Rate Blood Pressure 122/70 O2 Sat by Pulse 99 Oximetry Medical Decision Making - Medical Decision Making 43-year-old female presented for left flank pain. Patient had lab work, x-ray which is unremarkable. Patient will be discharged at this time she will follow- up with her urologist and PCP - Lab Data Result diagrams: 07/09/18 19:30 07/09/18 19:30 Lab Results 07/09/18 07/09/18 07/09/18 Range/Units 19:30 19:30 19:30 WBC 10.2 (3.8-10.6) k/uL RBC 4.69 (3.80-5.40) m/uL Hgb 13.6 (11.4-16.0) gm/dL Hct 40.4 (34.0-46.0) % MCV 86.3 (80.0-100.0) fL MCH 29.1 (25.0-35.0) pg MCHC 33.7 (31.0-37.0) g/dL RDW 13.4 (11.5-15.5) % Plt Count 298 (150-450) k/uL Neutrophils % 59 % Lymphocytes % 32 % Monocytes % 4 % Eosinophils % 3 % Basophils % 0 % Neutrophils # 6.1 (1.3-7.7) k/uL Lymphocytes # 3.3 (1.0-4.8) k/uL Monocytes # 0.4 (0-1.0) k/uL Eosinophils # 0.3 (0-0.7) k/uL Basophils # 0.0 (0-0.2) k/uL Sodium 143 (137-145) mmol/L Potassium 4.0 (3.5-5.1) mmol/L Chloride 111 H (98-107) mmol/L Carbon Dioxide 21 L (22-30) mmol/L Anion Gap 11 mmol/L BUN 11 (7-17) mg/dL Creatinine 0.67 (0.52-1.04) mg/dL Est GFR (CKD-EPI)AfAm >90 (>60 ml/min/1.73 sqM) Est GFR (CKD-EPI)NonAf >90 (>60 ml/min/1.73 sqM) Glucose 123 H (74-99) mg/dL Calcium 10.2 (8.4-10.2) mg/dL Total Bilirubin 0.3 (0.2-1.3) mg/dL AST 20 (14-36) U/L ALT 28 (9-52) U/L Alkaline Phosphatase 94 (38-126) U/L Total Protein 7.2 (6.3-8.2) g/dL Albumin 4.4 (3.5-5.0) g/dL Lipase 193 (23-300) U/L Urine Color Light Yellow Urine Appearance Turbid H (Clear) Urine pH 7.5 (5.0-8.0) Ur Specific [place] 1.007 (1.001-1.035) Urine Protein Negative (Negative) Urine Glucose (UA) Negative (Negative) Urine Ketones Negative (Negative) Urine Blood Negative (Negative) Urine Nitrite Negative (Negative) Urine Bilirubin Negative (Negative) Urine Urobilinogen <2.0 (<2.0) mg/dL Ur Leukocyte Esterase Negative (Negative) Urine WBC 2 (0-5) /hpf Ur Squamous Epith Cells 7 H (0-4) /hpf Amorphous Sediment Rare H (None) /hpf Disposition Clinical Impression: Left flank pain Disposition: HOME SELF-CARE Condition: Stable Instructions: Abdominal Pain (ED) Additional Instructions: Please return to the Emergency Department if symptoms worsen or any other concerns. Is patient prescribed a controlled substance at d/c from ED?: No Referrals: Melchor Stevens MD [Primary Care Provider] - 1-2 days Time of Disposition: 20:21
--- NOTE | 2018-07-09 20:25 | XR ---
EXAMINATION TYPE: XR KUB 2 views DATE OF EXAM: 07/09/2018 COMPARISON: 06/16/2018 HISTORY: Pain TECHNIQUE: 2 upright views FINDINGS: Visualized lung bases and pleural spaces are negative. Negative for pneumoperitoneum or pneumatosis. Bowel gas pattern is normal. No abnormal calcifications. No acute soft tissue findings. No acute skeletal findings. IMPRESSION: Negative examination
[2018-07-09 20:58] VITALS: BP 110/80; PULSE 66
== END 2018-07-09 20:58 | disposition home or self-care (01) ==
LOC: EC 18:48
DX: R10.9 Unspecified abdominal pain (principal); R11.2 Nausea with vomiting, unspecified; F41.9 Anxiety disorder, unspecified; F32.9 Major depressive disorder, single episode, unspecified; F43.10 Post-traumatic stress disorder, unspecified; F17.200 Nicotine dependence, unspecified, uncomplicated; G43.909 Migraine, unspecified, not intractable, without status migrainosus; Z87.19 Personal history of other diseases of the digestive system; Z87.442 Personal history of urinary calculi; Z87.448 Personal history of other diseases of urinary system; Z90.49 Acquired absence of other specified parts of digestive tract; Z90.710 Acquired absence of both cervix and uterus; Z98.51 Tubal ligation status; Z98.890 Other specified postprocedural states; Z79.899 Other long term (current) drug therapy; Z88.8 Allergy status to other drugs, medicaments and biological substances; Z88.5 Allergy status to narcotic agent; Z91.041 Radiographic dye allergy status; Z91.018 Allergy to other foods; Z88.2 Allergy status to sulfonamides; Z88.0 Allergy status to penicillin
CPT/HCPCS: 36415; 80053; 83690; 85025; 81001; 87086; 74018; 99284; 96374; 96375 ×3; 96361; J2270; J1200; J2405; J1885

== ENCOUNTER 2018-08-11 04:46 | Emergency (ER) | payer OTHER ==
[2018-08-11] MEDS ORDERED: SODIUM CHLORIDE 0.9% 1,000 ML IV ONE (04:59)
[2018-08-11] MEDS ORDERED: KETOROLAC 30 MG/ML 1 ML VIAL IVP STA (04:59)
[2018-08-11 05:34] LABS: Basophils # (A) 0.1 k/uL (0-0.2); Basophils % (A) 1 %; Eosinophils # (A) 0.3 k/uL (0-0.7); Eosinophils % (A) 3 %; HCT 39.9 % (34.0-46.0); HGB 13.6 gm/dL (11.4-16.0); Lymphocytes # (A) 4.4 k/uL (1.0-4.8); Lymphocytes % (A) 43 %; MCH 29.3 pg (25.0-35.0); MCV 86.1 fL (80.0-100.0); Mean Platelet Volume 6.1; Monocytes # (A) 0.5 k/uL (0-1.0); Monocytes % (A) 5 %; Neutrophils # (A) 4.9 k/uL (1.3-7.7); Neutrophils % (A) 48 %; Platelet Count 293 k/uL (150-450); RBC 4.63 m/uL (3.80-5.40); RDW 13.4 % (11.5-15.5); WBC 10.2 k/uL (3.8-10.6)
[2018-08-11 05:40] LABS: Appearance,Urine Cloudy (Clear); Bilirubin,Urine Negative (Negative); Blood,Urine Large (Negative); Color,Urine Light Red; Glucose,Urine (UA) Negative (Negative); Ketones,Urine Negative (Negative); Leukocyte Esterase,Urine Trace (Negative); Mucus,Urine Rare /hpf; Nitrite,Urine Negative (Negative); Protein,Urine 1+ (Negative); RBC,Urine >182 /hpf (0-5); Specific Gravity,Urine 1.014 (1.001-1.035); Squamous Epithelial Cell,Urine 5 /hpf (0-4); Urobilinogen,Urine <2.0 mg/dL (<2.0)
--- NOTE | 2018-08-11 05:42 | ED ---
Abdominal Pain HPI - General Chief Complaint: Abdominal Pain Stated Complaint: Possible Kidney Stone Time Seen by Provider: 08/11/18 04:54 Source: patient Mode of arrival: ambulatory Limitations: no limitations - History of Present Illness Initial Comments: as this is a 43-year-old female with extensive past medical history most significant for chronic recurrent kidney stones and frequent urinary tract infections presents to the emergency room today with left-sided flank pain. Patient reports that she passed 3 small kidney stones yesterday, she has all 3 in a plastic bag at bedside. She states that since that time she has persistent left-sided flank pain, hematuria and concerned that she may have a kidney stone stuck. Patient reports she is on Flomax, oral Toradol and Percocet at home with no improvement in her flank pain over the past 24 hours. She states that she scheduled to see her urologist Dr. Duggan on Sunday of this week. - Related Data Home Medications Medication Instructions Recorded Confirmed RX: OLANZapine [ZyPREXA] 10 mg PO BID@0900,2200 08/19/17 07/09/18 RX: oxyCODONE-APAP 10-325MG 1 tab PO QID PRN 08/29/17 07/09/18 [Percocet 10-325 mg] OXcarbazepine [Trileptal] 300 mg PO BID 02/05/18 07/09/18 ARIPiprazole [Abilify] 5 mg PO DAILY 03/12/18 07/09/18 Atorvastatin [Lipitor] 40 mg PO DAILY 03/12/18 07/09/18 Mirtazapine [Remeron] 15 mg PO HS 03/12/18 07/09/18 PARoxetine HCL [Paxil] 40 mg PO DAILY 03/12/18 07/09/18 Topiramate [Topamax] 100 mg PO BID 03/12/18 07/09/18 PARoxetine [Paxil] 20 mg PO DAILY 06/04/18 07/09/18 Previous Rx's Medication Instructions Recorded RX: Lisinopril [Zestril] 10 mg PO HS tab 08/02/17 RX: SUMAtriptan SUCCINATE [Imitrex] 100 mg PO DAILY PRN tab 08/02/17 RX: metFORMIN HCL [Glucophage] 1,000 mg PO BID-W/MEALS tab 08/02/17 Allergies Allergy/AdvReac Type Severity Reaction Status Date / Time bupropion HCl Allergy Rash/Hives Verified 08/11/18 04:52 [From Wellbutrin] divalproex sodium Allergy Unknown Verified 08/11/18 04:52 [From Depakote] fentanyl Allergy Swelling Verified 08/11/18 04:52 hydrocodone Allergy Itching Verified 08/11/18 04:52 Iodinated Contrast- Oral and Allergy Anaphylaxis Verified 08/11/18 04:52 IV Dye [Iodinated Contrast Media - IV Dye] orange juice [[place]] Allergy Rash/Hives Verified 08/11/18 04:52 Sulfa (Sulfonamide Allergy Rash/Hives Verified 08/11/18 04:52 Antibiotics) Penicillins AdvReac Nausea & Verified 08/11/18 04:52 Vomiting Review of Systems ROS Statement: Those systems with pertinent positive or pertinent negative responses have been documented in the HPI. ROS Other: All systems not noted in ROS Statement are negative. 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 History of Any Multi-Drug Resistant Organisms: None Reported Date of last positivie culture/infection: 05/14/17 MDRO Source:: ESBL URINE Past Surgical History: Bladder Surgery, Section, Cholecystectomy, Hysterectomy, Orthopedic Surgery, Tubal Ligation Additional Past Surgical History / Comment(s): R ovarian cystectomy, laparoscopic surgery for L ovary that had attached to the bowel, D&C, numerous lithotripsies, nephroscopies, cystoscopies and stents to ureters-none in place at this time, L robotic pyeloplasty with post op infection around kidney which then required a picc line/later removed (pt states was not MRSA), L rotator cuff repair, L wrist tendon surgery, colonoscopy Past Anesthesia/Blood Transfusion Reactions: Family History of Problems w/ Anesthesia Additional Past Anesthesia/Blood Transfusion Reaction / Comment(s): dad-hard time waking up due to enzyme problems in liver Past Psychological History: ADD/ADHD, Anxiety, Bipolar, Depression, PTSD Smoking Status: Current every day smoker Past Alcohol Use History: None Reported Past Drug Use History: None Reported - Past Family History Brother(s) Family Medical History: Cancer Additional Family Medical History / Comment(s): testicular Father Family Medical History: Coronary Artery Disease (CAD), CVA/TIA, Diabetes Mellitus, Renal Disease Additional Family Medical History / Comment(s): GLAUCOMA,NEUROPATHY HAD TRIPLE CABG, at 56yrs from renal disease. Mother Family Medical History: Hyperlipidemia Additional Family Medical History / Comment(s): DDD, HAD 3 vessel CABG AGE 54. General Exam - General Exam Comments Initial Comments: Physical Exam GENERAL: Patient is well-developed and well-nourished. Patient is nontoxic and well- hydrated and is in no distress. HENT: Normocephalic, Atraumatic. EYES: PERRL, EOMI PULMONARY: Unlabored respirations. No audible rales rhonchi or wheezing was noted. CARDIOVASCULAR: There is a regular rate and rhythm without any murmurs gallops or rubs. ABDOMEN: Soft and nontender with normal bowel sounds. tenderness to Percussion of left flank SKIN: Skin is clear with no lesions or rashes and otherwise unremarkable. : Deferred NEUROLOGIC: Patient is alert and oriented x3. Moving all extremities spontaneously MUSCULOSKELETAL: Normal extremities with adequate strength and full range of motion. No lower extremity swelling or edema. No calf tenderness. PSYCHIATRIC: Normal psychiatric evaluation. Limitations: no limitations Limitations: no limitations Course Vital Signs 08/11/18 08/11/18 04:50 07:19 Temperature 97.8 F Pulse Rate 78 88 Respiratory 16 16 Rate Blood Pressure 113/75 106/55 O2 Sat by Pulse 100 98 Oximetry Medical Decision Making - Medical Decision Making was seen and evaluated history is obtained from the patient review of medical record patient is seen frequently for flank pain, she is on oral Toradol and narcotics as well as Flomax IV fluids and Toradol ordered Patient provided a grossly bloody urine sample which will be sent to lab for urinalysis and culture Patient has not had a computed tomography scan in nearly one year at that time patient had only small punctate stones repeat scan ordered today patient's agreeable to this urinalysis with gross hematuria labs are at patient's baseline Computed tomography scan with mild hydro-no obvious obstructing process at this time I suspect a lot of the patient's discomfort is secondary to hematuria likely related to recently passed stones. I recommended the patient try Pyridium which she states she has at home. Advised patient to continue her home pain regimen and follow up with urology as scheduled on Sunday. Patient' s agreeable to this. All questions pertaining care answered return parameters discussed patient discharged home in stable condition. - Lab Data Result diagrams: 08/11/18 05:20 08/11/18 05:20 Lab Results 08/11/18 08/11/18 08/11/18 Range/Units 05:20 05:20 05:20 WBC 10.2 (3.8-10.6) k/uL RBC 4.63 (3.80-5.40) m/uL Hgb 13.6 (11.4-16.0) gm/dL Hct 39.9 (34.0-46.0) % MCV 86.1 (80.0-100.0) fL MCH 29.3 (25.0-35.0) pg MCHC 34.0 (31.0-37.0) g/dL RDW 13.4 (11.5-15.5) % Plt Count 293 (150-450) k/uL Neutrophils % 48 % Lymphocytes % 43 % Monocytes % 5 % Eosinophils % 3 % Basophils % 1 % Neutrophils # 4.9 (1.3-7.7) k/uL Lymphocytes # 4.4 (1.0-4.8) k/uL Monocytes # 0.5 (0-1.0) k/uL Eosinophils # 0.3 (0-0.7) k/uL Basophils # 0.1 (0-0.2) k/uL Sodium 140 (137-145) mmol/L Potassium 4.2 (3.5-5.1) mmol/L Chloride 111 H (98-107) mmol/L Carbon Dioxide 19 L (22-30) mmol/L Anion Gap 10 mmol/L BUN 13 (7-17) mg/dL Creatinine 0.65 (0.52-1.04) mg/dL Est GFR (CKD-EPI)AfAm >90 (>60 ml/min/1.73 sqM) Est GFR (CKD-EPI)NonAf >90 (>60 ml/min/1.73 sqM) Glucose 110 H (74-99) mg/dL Calcium 9.4 (8.4-10.2) mg/dL Total Bilirubin 0.5 (0.2-1.3) mg/dL AST 18 (14-36) U/L ALT 33 (9-52) U/L Alkaline Phosphatase 101 (38-126) U/L Total Protein 7.0 (6.3-8.2) g/dL Albumin 4.2 (3.5-5.0) g/dL Urine Color Light [place] Urine Appearance Cloudy H (Clear) Urine pH 7.0 (5.0-8.0) Ur Specific [place] 1.014 (1.001-1.035) Urine Protein 1+ H (Negative) Urine Glucose (UA) Negative (Negative) Urine Ketones Negative (Negative) Urine Blood Large H (Negative) Urine Nitrite Negative (Negative) Urine Bilirubin Negative (Negative) Urine Urobilinogen <2.0 (<2.0) mg/dL Ur Leukocyte Esterase Trace H (Negative) Urine RBC >182 H (0-5) /hpf Urine WBC 153 H (0-5) /hpf Ur Squamous Epith Cells 5 H (0-4) /hpf Urine Mucus Rare H (None) /hpf Disposition Clinical Impression: Left flank pain, Hematuria Disposition: HOME SELF-CARE Instructions (If sedation given, give patient instructions): Flank Pain (ED) Is patient prescribed a controlled substance at d/c from ED?: No Referrals: Melchor Stevens MD [Primary Care Provider] - 1-2 days
[2018-08-11 05:45] LABS: ALT 33 U/L (9-52); AST 18 U/L (14-36); Albumin 4.2 g/dL (3.5-5.0); Alkaline Phosphatase 101 U/L (38-126); Anion Gap 10 mmol/L; Blood Urea Nitrogen 13 mg/dL (7-17); Calcium 9.4 mg/dL (8.4-10.2); Carbon Dioxide 19 mmol/L (22-30); Chloride 111 mmol/L (98-107); Glucose 110 mg/dL (74-99); Potassium 4.2 mmol/L (3.5-5.1); Sodium 140 mmol/L (137-145); Total Bilirubin 0.5 mg/dL (0.2-1.3)
--- NOTE | 2018-08-11 06:30 | CT ---
EXAM: CT Abdomen and Pelvis Without Intravenous Contrast, Renal Stone Protocol CLINICAL HISTORY: ITS.REASON CT Reason: Pain TECHNIQUE: Axial computed tomography images of the abdomen and pelvis without intravenous contrast using renal stone protocol. CTDI is 9 mGy and DLP is 468.2 mGy-cm. This CT exam was performed using one or more of the following dose reduction techniques: automated exposure control, adjustment of the mA and/or kV according to patient size, and/or use of iterative reconstruction technique. Coronal and sagittal reformatted images were created and reviewed. COMPARISON: CT abdomen pelvis dated 10/23/17, radiographs dated 07/09/18 FINDINGS: Lower thorax: Unremarkable as visualized. ABDOMEN: Liver: Unremarkable. Gallbladder and bile ducts: Cholecystectomy. No ductal dilation. Pancreas: Unremarkable. No ductal dilation. Spleen: Unremarkable. No splenomegaly. Adrenals: Unremarkable. No mass. Right kidney and ureter: Right upper pole intrarenal 2 mm calculus. No hydronephrosis. Left kidney and ureter: Mild left hydronephrosis. Question punctate calculus on image 103, series 201 versus passed ureteral calculus not visualized. Stomach and bowel: Unremarkable. No obstruction. No mucosal thickening. PELVIS: Appendix: No findings to suggest acute appendicitis. Bladder: Unremarkable. No stones. Reproductive: Uterus is absent. ABDOMEN and PELVIS: Intraperitoneal space: Unremarkable. No free air. No significant fluid collection. Bones/joints: Multiple endplate Schmorl's nodes. No acute fracture. No dislocation. Soft tissues: Unremarkable. Vasculature: Unremarkable. No abdominal aortic aneurysm. Lymph nodes: Unremarkable. No enlarged lymph nodes. IMPRESSION: 1. Mild left hydronephrosis. Question punctate calculus on image 103, series 201 versus passed ureteral calculus not visualized. 2. Right upper pole intrarenal 2 mm calculus.
[2018-08-11] MEDS ORDERED: PHENAZOPYRIDINE 200 MG TAB PO STA (07:43)
[2018-08-11 07:57] VITALS: BP 94/62; PULSE 90; RESP 18; TEMP 97.6
== END 2018-08-11 08:01 | disposition home or self-care (01) ==
LOC: EC 04:46
DX: R10.9 Unspecified abdominal pain (principal); R31.0 Gross hematuria; N13.30 Unspecified hydronephrosis; I10 Essential (primary) hypertension; F31.9 Bipolar disorder, unspecified; F41.9 Anxiety disorder, unspecified; F43.10 Post-traumatic stress disorder, unspecified; F17.200 Nicotine dependence, unspecified, uncomplicated; Z88.0 Allergy status to penicillin; Z88.2 Allergy status to sulfonamides; Z88.5 Allergy status to narcotic agent; Z88.8 Allergy status to other drugs, medicaments and biological substances; Z91.018 Allergy to other foods; Z91.041 Radiographic dye allergy status; Z79.899 Other long term (current) drug therapy; Z87.448 Personal history of other diseases of urinary system; Z86.69 Personal history of other diseases of the nervous system and sense organs; Z98.890 Other specified postprocedural states; Z90.49 Acquired absence of other specified parts of digestive tract; Z87.440 Personal history of urinary (tract) infections; Z87.442 Personal history of urinary calculi; Z84.1 Family history of disorders of kidney and ureter; Z80.43 Family history of malignant neoplasm of testis
CPT/HCPCS: 36415; 80053; 85025; 81001; 87086; 74150; 99284; 96374; 96361 ×2; J1885

== ENCOUNTER 2018-09-02 23:11 | Emergency (ER) | payer OTHER ==
[2018-09-02 23:16] VITALS: BP 111/82; TEMP 98
[2018-09-02] MEDS ORDERED: KETOROLAC 30 MG/ML 1 ML VIAL IM STA (23:48)
[2018-09-03 00:50] LABS: Appearance,Urine Cloudy (Clear); Bacteria,Urine Many /hpf; Bilirubin,Urine Negative (Negative); Blood,Urine Large (Negative); Color,Urine Light Orange; Glucose,Urine (UA) Negative (Negative); Ketones,Urine Negative (Negative); Leukocyte Esterase,Urine Trace (Negative); Mucus,Urine Rare /hpf; Nitrite,Urine Negative (Negative); PH, Urine 7.5 (5.0-8.0); Protein,Urine Trace (Negative); RBC,Urine >182 /hpf (0-5); Specific Gravity,Urine 1.011 (1.001-1.035); Squamous Epithelial Cell,Urine 13 /hpf (0-4); Urobilinogen,Urine <2.0 mg/dL (<2.0); WBC,Urine 10 /hpf (0-5)
--- NOTE | 2018-09-03 01:21 | ED ---
Abdominal Pain HPI - General Chief Complaint: Abdominal Pain Stated Complaint: kidney stones Time Seen by Provider: 09/02/18 23:41 Source: patient Mode of arrival: ambulatory Limitations: no limitations - History of Present Illness Initial Comments: Leilani is a 43-year-old female well known to the emergency department for frequent evaluations of flank pain. Patient does have a history of kidney stones she was evaluated last month at which time computed tomography scan did reveal very small punctate 2 mm stones the bilateral kidneys. Patient reports yesterday she began having severe flank pain with associated nausea and vomiting. This is consistent with previous episodes of flank pain. Patient reports that she contacted her urologist today she scheduled to be reevaluated in the office on however this morning she couldn't handle the pain at home anymore so she came to the ER for reevaluation. - Related Data Home Medications Medication Instructions Recorded Confirmed OLANZapine [ZyPREXA] 10 mg PO BID@0900,2200 08/19/17 07/09/18 oxyCODONE-APAP 10-325MG [Percocet 1 tab PO QID PRN 08/29/17 07/09/18 10-325 mg] OXcarbazepine [Trileptal] 300 mg PO BID 02/05/18 07/09/18 ARIPiprazole [Abilify] 5 mg PO DAILY 03/12/18 07/09/18 Atorvastatin [Lipitor] 40 mg PO DAILY 03/12/18 07/09/18 Mirtazapine [Remeron] 15 mg PO HS 03/12/18 07/09/18 PARoxetine HCL [Paxil] 40 mg PO DAILY 03/12/18 07/09/18 Topiramate [Topamax] 100 mg PO BID 03/12/18 07/09/18 PARoxetine [Paxil] 20 mg PO DAILY 06/04/18 07/09/18 Previous Rx's Medication Instructions Recorded Lisinopril [Zestril] 10 mg PO HS tab 08/02/17 SUMAtriptan SUCCINATE [Imitrex] 100 mg PO DAILY PRN tab 08/02/17 metFORMIN HCL [Glucophage] 1,000 mg PO BID-W/MEALS tab 08/02/17 Allergies Allergy/AdvReac Type Severity Reaction Status Date / Time bupropion HCl Allergy Rash/Hives Verified 09/02/18 23:16 [From Wellbutrin] divalproex sodium Allergy Unknown Verified 09/02/18 23:16 [From Depakote] fentanyl Allergy Swelling Verified 09/02/18 23:16 hydrocodone Allergy Itching Verified 09/02/18 23:16 Iodinated Contrast- Oral and Allergy Anaphylaxis Verified 09/02/18 23:16 IV Dye [Iodinated Contrast Media - IV Dye] orange juice [[place]] Allergy Rash/Hives Verified 09/02/18 23:16 Sulfa (Sulfonamide Allergy Rash/Hives Verified 09/02/18 23:16 Antibiotics) Penicillins AdvReac Nausea & Verified 09/02/18 23:16 Vomiting Review of Systems ROS Statement: Those systems with pertinent positive or pertinent negative responses have been documented in the HPI. ROS Other: All systems not noted in ROS Statement are negative. 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 History of Any Multi-Drug Resistant Organisms: None Reported Date of last positivie culture/infection: 05/14/17 MDRO Source:: ESBL URINE Past Surgical History: Bladder Surgery, Section, Cholecystectomy, Hysterectomy, Orthopedic Surgery, Tubal Ligation Additional Past Surgical History / Comment(s): R ovarian cystectomy, laparoscopic surgery for L ovary that had attached to the bowel, D&C, numerous lithotripsies, nephroscopies, cystoscopies and stents to ureters-none in place at this time, L robotic pyeloplasty with post op infection around kidney which then required a picc line/later removed (pt states was not MRSA), L rotator cuff repair, L wrist tendon surgery, colonoscopy Past Anesthesia/Blood Transfusion Reactions: Family History of Problems w/ Anesthesia Additional Past Anesthesia/Blood Transfusion Reaction / Comment(s): dad-hard time waking up due to enzyme problems in liver Past Psychological History: ADD/ADHD, Anxiety, Bipolar, Depression, PTSD Smoking Status: Current every day smoker Past Alcohol Use History: None Reported Past Drug Use History: None Reported - Past Family History Brother(s) Family Medical History: Cancer Additional Family Medical History / Comment(s): testicular Father Family Medical History: Coronary Artery Disease (CAD), CVA/TIA, Diabetes Mellitus, Renal Disease Additional Family Medical History / Comment(s): GLAUCOMA,NEUROPATHY HAD TRIPLE CABG, at 56yrs from renal disease. Mother Family Medical History: Hyperlipidemia Additional Family Medical History / Comment(s): DDD, HAD 3 vessel CABG AGE 54. General Exam - General Exam Comments Initial Comments: Physical Exam GENERAL: Patient is well-developed and well-nourished. Patient is nontoxic, mildly dehydrated in moderate distress due to pain HENT: Normocephalic, Atraumatic. EYES: PERRL, EOMI PULMONARY: Unlabored respirations. CARDIOVASCULAR: There is a regular rate and rhythm without any murmurs gallops or rubs. ABDOMEN: Soft and nontender with normal bowel sounds. Left sided flank pain to percussion SKIN: Skin is clear with no lesions or rashes and otherwise unremarkable. : Deferred NEUROLOGIC: Patient is alert and oriented x3. Moving all extremities spontaneously MUSCULOSKELETAL: Normal extremities with adequate strength and full range of motion. No lower extremity swelling or edema. No calf tenderness. PSYCHIATRIC: Normal psychiatric evaluation. Limitations: no limitations Limitations: no limitations Course Vital Signs 09/02/18 09/03/18 23:14 01:36 Temperature 98.0 F Pulse Rate 80 70 Respiratory 18 16 Rate Blood Pressure 111/82 O2 Sat by Pulse 100 Oximetry Medical Decision Making - Medical Decision Making The patient was seen and evaluated history was obtained from the patient Urinalysis was obtained, he was treated with Toradol Zofran was offered as the patient did report some nausea next line patient reports resolution of her pain with Toradol, she sitting comfortably in the bed eating vi crackers and drinking well. Urinalysis does have some gross hematuria there is some white blood cells however there is obvious skin contamination and patient's not having any dysuria or signs of urinary tract infection. At this time I will not order antibiotics. Patient comfortable with plan for discharge home and outpatient follow-up with urology as scheduled - Lab Data Lab Results 09/02/18 Range/Units 23:00 Urine Color Light [place] Urine Appearance Cloudy H (Clear) Urine pH 7.5 (5.0-8.0) Ur Specific [place] 1.011 (1.001-1.035) Urine Protein Trace H (Negative) Urine Glucose (UA) Negative (Negative) Urine Ketones Negative (Negative) Urine Blood Large H (Negative) Urine Nitrite Negative (Negative) Urine Bilirubin Negative (Negative) Urine Urobilinogen <2.0 (<2.0) mg/dL Ur Leukocyte Esterase Trace H (Negative) Urine RBC >182 H (0-5) /hpf Urine WBC 10 H (0-5) /hpf Ur Squamous Epith Cells 13 H (0-4) /hpf Urine Bacteria Many H (None) /hpf Urine Mucus Rare H (None) /hpf Disposition Clinical Impression: Left flank pain, chronic Disposition: HOME SELF-CARE Condition: Stable Instructions (If sedation given, give patient instructions): Abdominal Pain (ED) Is patient prescribed a controlled substance at d/c from ED?: No Referrals: Melchor Stevens MD [Primary Care Provider] - 1-2 days
[2018-09-03 01:38] VITALS: PULSE 70; RESP 16
== END 2018-09-03 01:36 | disposition home or self-care (01) ==
LOC: EC 23:11
DX: R10.9 Unspecified abdominal pain (principal); G89.29 Other chronic pain; I10 Essential (primary) hypertension; G43.909 Migraine, unspecified, not intractable, without status migrainosus; F31.9 Bipolar disorder, unspecified; F43.10 Post-traumatic stress disorder, unspecified; F90.9 Attention-deficit hyperactivity disorder, unspecified type; F41.9 Anxiety disorder, unspecified; F17.200 Nicotine dependence, unspecified, uncomplicated; Z79.899 Other long term (current) drug therapy; Z88.0 Allergy status to penicillin; Z88.5 Allergy status to narcotic agent; Z88.2 Allergy status to sulfonamides; Z88.8 Allergy status to other drugs, medicaments and biological substances; Z91.018 Allergy to other foods; Z91.041 Radiographic dye allergy status; Z90.49 Acquired absence of other specified parts of digestive tract; Z87.442 Personal history of urinary calculi
CPT/HCPCS: 81001; 99283; 96372; J1885

== ENCOUNTER 2018-09-30 18:43 | Emergency (ER) | payer OTHER ==
[2018-09-30] MEDS ORDERED: ONDANSETRON 4 MG/2 ML VIAL IVP STA (20:19)
[2018-09-30] MEDS ORDERED: HYDROmorphone 1 MG/ML 1 ML SYRINGE IVP STA (20:19)
[2018-09-30] MEDS ORDERED: KETOROLAC 30 MG/ML 1 ML VIAL IVP STA (20:19)
[2018-09-30] MEDS ORDERED: SODIUM CHLORIDE 0.9% 1,000 ML IV STA (20:19)
[2018-09-30 20:43] LABS: Basophils # (A) 0.1 k/uL (0-0.2); Basophils % (A) 1 %; Eosinophils # (A) 0.3 k/uL (0-0.7); Eosinophils % (A) 3 %; HCT 40.5 % (34.0-46.0); HGB 13.5 gm/dL (11.4-16.0); Lymphocytes # (A) 4.3 k/uL (1.0-4.8); Lymphocytes % (A) 37 %; MCH 28.5 pg (25.0-35.0); MCHC 33.4 g/dL (31.0-37.0); MCV 85.4 fL (80.0-100.0); Mean Platelet Volume 6.7; Monocytes # (A) 0.5 k/uL (0-1.0); Monocytes % (A) 4 %; Neutrophils # (A) 6.1 k/uL (1.3-7.7); Neutrophils % (A) 54 %; Platelet Count 313 k/uL (150-450); RBC 4.75 m/uL (3.80-5.40); RDW 13.4 % (11.5-15.5); WBC 11.4 k/uL (3.8-10.6)
[2018-09-30 20:49] LABS: ALT 25 U/L (9-52); AST 20 U/L (14-36); Albumin 4.2 g/dL (3.5-5.0); Alkaline Phosphatase 93 U/L (38-126); Amylase 55 U/L (30-110); Anion Gap 8 mmol/L; Blood Urea Nitrogen 10 mg/dL (7-17); Calcium 9.9 mg/dL (8.4-10.2); Carbon Dioxide 23 mmol/L (22-30); Chloride 108 mmol/L (98-107); Glucose 104 mg/dL (74-99); Lipase 128 U/L (23-300); Sodium 139 mmol/L (137-145); Total Bilirubin 0.3 mg/dL (0.2-1.3)
[2018-09-30 20:55] LABS: Amorphous Sediment,Urine Moderate /hpf; Appearance,Urine Turbid (Clear); Bilirubin,Urine Negative (Negative); Blood,Urine Negative (Negative); Color,Urine Yellow; Glucose,Urine (UA) Negative (Negative); Ketones,Urine Negative (Negative); Leukocyte Esterase,Urine Negative (Negative); Nitrite,Urine Negative (Negative); PH, Urine 7.5 (5.0-8.0); Protein,Urine Trace (Negative); Specific Gravity,Urine 1.015 (1.001-1.035); Squamous Epithelial Cell,Urine 11 /hpf (0-4); Urobilinogen,Urine <2.0 mg/dL (<2.0)
--- NOTE | 2018-09-30 21:00 | XR ---
EXAMINATION TYPE: XR KUB DATE OF EXAM: 09/30/2018 COMPARISON: 07/09/2018 HISTORY: Left-sided flank pain TECHNIQUE: 2 views FINDINGS: 2 views upright were obtained. There is clips from cholecystectomy. There is no evidence of a mass. Bowel gas pattern is normal. There is no sign of intestinal obstruction or pneumoperitoneum. There are no pathologic calcifications over the kidneys. IMPRESSION: Nonacute abdomen. No change.
--- NOTE | 2018-09-30 21:27 | ED ---
Female Urogenital HPI - General Chief complaint: Urogenital Stated complaint: kidney stones Time Seen by Provider: 09/30/18 19:25 Source: patient, RN notes reviewed, old records reviewed Mode of arrival: ambulatory Limitations: no limitations - History of Present Illness Initial comments: Is a 43-year-old female who presents emergency Department with complaints of left-sided flank pain. Patient reports that she's been having symptoms for the past [address] Hill her urologist. At this time Patient states that she passed 2 stones but states that they didn't x-ray to further stones. Patient states that she's had no fevers or chills. She's had some vomiting episodes. She went to [facility] today and he told her to come here symptoms continue persist after shot of Toradol. Patient is well-known to emergency department for frequent kidney stones. - Related Data Home Medications Medication Instructions Recorded Confirmed OLANZapine [ZyPREXA] 10 mg PO BID 08/19/17 09/30/18 oxyCODONE-APAP 10-325MG [Percocet 1 tab PO QID PRN 08/29/17 09/30/18 10-325 mg] OXcarbazepine [Trileptal] 300 mg PO BID 02/05/18 09/30/18 ARIPiprazole [Abilify] 5 mg PO DAILY 03/12/18 09/30/18 Mirtazapine [Remeron] 15 mg PO HS 03/12/18 09/30/18 PARoxetine HCL [Paxil] 40 mg PO DAILY 03/12/18 09/30/18 Topiramate [Topamax] 100 mg PO BID 03/12/18 09/30/18 PARoxetine [Paxil] 20 mg PO DAILY 06/04/18 09/30/18 Atorvastatin Calcium [Lipitor] 10 mg PO DAILY 09/30/18 09/30/18 Previous Rx's Medication Instructions Recorded Lisinopril [Zestril] 10 mg PO HS tab 08/02/17 SUMAtriptan SUCCINATE [Imitrex] 100 mg PO DAILY PRN tab 08/02/17 metFORMIN HCL [Glucophage] 1,000 mg PO BID-W/MEALS tab 08/02/17 Allergies Allergy/AdvReac Type Severity Reaction Status Date / Time bupropion HCl Allergy Rash/Hives Verified 09/30/18 20:01 [From Wellbutrin] divalproex sodium Allergy Unknown Verified 09/30/18 20:01 [From Depakote] fentanyl Allergy Swelling Verified 09/30/18 20:01 hydrocodone Allergy Itching Verified 09/30/18 20:01 Iodinated Contrast- Oral and Allergy Anaphylaxis Verified 09/30/18 20:01 IV Dye [Iodinated Contrast Media - IV Dye] orange juice [[place]] Allergy Rash/Hives Verified 09/30/18 20:01 Sulfa (Sulfonamide Allergy Rash/Hives Verified 09/30/18 20:01 Antibiotics) Penicillins AdvReac Nausea & Verified 09/30/18 20:01 Vomiting Review of Systems ROS Statement: Those systems with pertinent positive or pertinent negative responses have been documented in the HPI. ROS Other: All systems not noted in ROS Statement are negative. 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 History of Any Multi-Drug Resistant Organisms: None Reported Date of last positivie culture/infection: 05/14/17 MDRO Source:: ESBL URINE Past Surgical History: Bladder Surgery, Section, Cholecystectomy, Hysterectomy, Orthopedic Surgery, Tubal Ligation Additional Past Surgical History / Comment(s): R ovarian cystectomy, laparoscopic surgery for L ovary that had attached to the bowel, D&C, numerous lithotripsies, nephroscopies, cystoscopies and stents to ureters-none in place at this time, L robotic pyeloplasty with post op infection around kidney which then required a picc line/later removed (pt states was not MRSA), L rotator cuff repair, L wrist tendon surgery, colonoscopy Past Anesthesia/Blood Transfusion Reactions: Family History of Problems w/ Anesthesia Additional Past Anesthesia/Blood Transfusion Reaction / Comment(s): dad-hard time waking up due to enzyme problems in liver Past Psychological History: ADD/ADHD, Anxiety, Bipolar, Depression, PTSD Smoking Status: Current every day smoker Past Alcohol Use History: None Reported Past Drug Use History: None Reported - Past Family History Brother(s) Family Medical History: Cancer Additional Family Medical History / Comment(s): testicular Father Family Medical History: Coronary Artery Disease (CAD), CVA/TIA, Diabetes Mellit us, Renal Disease Additional Family Medical History / Comment(s): GLAUCOMA,NEUROPATHY HAD TRIPLE CABG, at 56yrs from renal disease. Mother Family Medical History: Hyperlipidemia Additional Family Medical History / Comment(s): DDD, HAD 3 vessel CABG AGE 54. General Exam - General Exam Comments Initial Comments: Patient is a 43-year-old female. Alert and oriented 3. Patient appears in no significant distress. Limitations: no limitations General appearance: alert, in no apparent distress Head exam: Present: atraumatic, normocephalic, normal inspection Eye exam: Present: normal appearance, PERRL, EOMI. Absent: scleral icterus, conjunctival injection, periorbital swelling ENT exam: Present: normal exam, mucous membranes moist Neck exam: Present: normal inspection. Absent: tenderness, meningismus, lymphadenopathy Respiratory exam: Present: normal lung sounds bilaterally. Absent: respiratory distress, wheezes, rales, rhonchi, stridor Cardiovascular Exam: Present: regular rate, normal rhythm, normal heart sounds. Absent: systolic murmur, diastolic murmur, rubs, gallop, clicks GI/Abdominal exam: Present: soft, tenderness (CVA tenderness. No abdominal tenderness.), normal bowel sounds. Absent: distended, guarding, rebound, rigid Extremities exam: Present: normal inspection, full ROM, normal capillary refill. Absent: tenderness, pedal edema, joint swelling, calf tenderness Back exam: Present: normal inspection Neurological exam: Present: alert, oriented X3, CN II-XII intact Psychiatric exam: Present: normal affect, normal mood Skin exam: Present: warm, dry, intact, normal color. Absent: rash Course Vital Signs 09/30/18 19:13 Temperature 98.4 F Pulse Rate 89 Respiratory 16 Rate Blood Pressure 101/68 O2 Sat by Pulse 98 Oximetry Medical Decision Making - Medical Decision Making This is a 43-year-old female presents emergency room today for complaints of left flank pain. Symptoms for the past 4 days. She seen her urologist. Patient reports she's been taking Toradol and Percocet with no relief for pain. This time urinalysis negative for acute process. Blood work was unremarkable. KUB shows no further changes. Patient advised that she'll be discharged with follow-up with urology. All questions answered and return parameters were discussed. - Lab Data Result diagrams: 09/30/18 20:26 09/30/18 20: Lab Results 09/30/18 09/30/18 09/30/18 Range/Units 20:26 20:26 20:26 WBC 11.4 H (3.8-10.6) k/uL RBC 4.75 (3.80-5.40) m/uL Hgb 13.5 (11.4-16.0) gm/dL Hct 40.5 (34.0-46.0) % MCV 85.4 (80.0-100.0) fL MCH 28.5 (25.0-35.0) pg MCHC 33.4 (31.0-37.0) g/dL RDW 13.4 (11.5-15.5) % Plt Count 313 (150-450) k/uL Neutrophils % 54 % Lymphocytes % 37 % Monocytes % 4 % Eosinophils % 3 % Basophils % 1 % Neutrophils # 6.1 (1.3-7.7) k/uL Lymphocytes # 4.3 (1.0-4.8) k/uL Monocytes # 0.5 (0-1.0) k/uL Eosinophils # 0.3 (0-0.7) k/uL Basophils # 0.1 (0-0.2) k/uL Sodium 139 (137-145) mmol/L Potassium 4.0 (3.5-5.1) mmol/L Chloride 108 H (98-107) mmol/L Carbon Dioxide 23 (22-30) mmol/L Anion Gap 8 mmol/L BUN 10 (7-17) mg/dL Creatinine 0.81 (0.52-1.04) mg/dL Est GFR (CKD-EPI)AfAm >90 (>60 ml/min/1.73 sqM) Est GFR (CKD-EPI)NonAf >90 (>60 ml/min/1.73 sqM) Glucose 104 H (74-99) mg/dL Calcium 9.9 (8.4-10.2) mg/dL Total Bilirubin 0.3 (0.2-1.3) mg/dL AST 20 (14-36) U/L ALT 25 (9-52) U/L Alkaline Phosphatase 93 (38-126) U/L Total Protein 7.0 (6.3-8.2) g/dL Albumin 4.2 (3.5-5.0) g/dL Amylase 55 (30-110) U/L Lipase 128 (23-300) U/L Urine Color Yellow Urine Appearance Turbid H (Clear) Urine pH 7.5 (5.0-8.0) Ur Specific [place] 1.015 (1.001-1.035) Urine Protein Trace H (Negative) Urine Glucose (UA) Negative (Negative) Urine Ketones Negative (Negative) Urine Blood Negative (Negative) Urine Nitrite Negative (Negative) Urine Bilirubin Negative (Negative) Urine Urobilinogen <2.0 (<2.0) mg/dL Ur Leukocyte Esterase Negative (Negative) Ur Squamous Epith Cells 11 H (0-4) /hpf Amorphous Sediment Moderate H (None) /hpf - Radiology Data Radiology results: report reviewed Normal KUB. No changes. Disposition Clinical Impression: Flank pain Disposition: HOME SELF-CARE Condition: Good Instructions (If sedation given, give patient instructions): Flank Pain (ED) Is patient prescribed a controlled substance at d/c from ED?: No Referrals: Melchor Stevens MD [Primary Care Provider] - 1-2 days Time of Disposition: 21:26
[2018-09-30 21:56] VITALS: BP 96/62; PULSE 71; RESP 18; TEMP 98
== END 2018-09-30 21:54 | disposition home or self-care (01) ==
LOC: EC 18:43
DX: R10.9 Unspecified abdominal pain (principal); R11.10 Vomiting, unspecified; I10 Essential (primary) hypertension; F31.9 Bipolar disorder, unspecified; F41.9 Anxiety disorder, unspecified; F43.10 Post-traumatic stress disorder, unspecified; F17.200 Nicotine dependence, unspecified, uncomplicated; Z88.0 Allergy status to penicillin; Z88.2 Allergy status to sulfonamides; Z88.5 Allergy status to narcotic agent; Z88.8 Allergy status to other drugs, medicaments and biological substances; Z91.018 Allergy to other foods; Z91.041 Radiographic dye allergy status; Z79.899 Other long term (current) drug therapy; Z86.69 Personal history of other diseases of the nervous system and sense organs; Z87.442 Personal history of urinary calculi; Z87.448 Personal history of other diseases of urinary system; Z90.49 Acquired absence of other specified parts of digestive tract; Z98.890 Other specified postprocedural states; Z84.1 Family history of disorders of kidney and ureter
CPT/HCPCS: 36415; 80053; 82150; 83690; 85025; 81001; 74018; 99284; 96374; 96375 ×2; 96361; J2405; J1885; J1170

== ENCOUNTER 2018-10-17 22:57 | Emergency (ER) | payer OTHER ==
[2018-10-17 23:06] VITALS: BP 110/77; PULSE 91; RESP 18; TEMP 98.1
[2018-10-17 23:32] LABS: Appearance,Urine Cloudy (Clear); Bacteria,Urine Many /hpf; Bilirubin,Urine Negative (Negative); Blood,Urine Negative (Negative); Color,Urine Light Yellow; Glucose,Urine (UA) Negative (Negative); Ketones,Urine Negative (Negative); Leukocyte Esterase,Urine Negative (Negative); Nitrite,Urine Negative (Negative); PH, Urine 6.5 (5.0-8.0); Protein,Urine Negative (Negative); RBC,Urine 1 /hpf (0-5); Specific Gravity,Urine 1.007 (1.001-1.035); Squamous Epithelial Cell,Urine 3 /hpf (0-4); Urobilinogen,Urine <2.0 mg/dL (<2.0); WBC,Urine 3 /hpf (0-5)
[2018-10-18] MEDS ORDERED: HYDROmorphone 0.5 MG/0.5 ML SYRINGE IVP STA (00:22)
[2018-10-18] MEDS ORDERED: SODIUM CHLORIDE 0.9% 1,000 ML IV ONE (00:23)
--- NOTE | 2018-10-18 00:42 | ED ---
Abdominal Pain HPI - General Chief Complaint: Abdominal Pain Stated Complaint: Kidney stones Time Seen by Provider: 10/17/18 23:28 Source: patient Mode of arrival: ambulatory Limitations: no limitations - History of Present Illness Initial Comments: 43-year-old female presenting today for chief complaint of right flank pain. Patient states she has history of stones, states symptoms are identical. Patient denies any changes. Patient states she seen urology last week was told she had 2 very small stones. Patient denies dysuria hematuria urgency or frequency. She states it's located in the right flank. Patient states the pain comes and goes. Patient states she was told to come to ER for pain management as needed. Patient states she took Toradol home this did not help. Patient presented for evaluation.Patient denies any recent fever, chills, shortness of breath, chest pain, back pain, abdominal pain, nausea or vomiting, numbness or tingling, dysuria or hematuria, constipation or diarrhea, headaches or visual changes, or any other complaints. - Related Data Home Medications Medication Instructions Recorded Confirmed OLANZapine [ZyPREXA] 10 mg PO BID 08/19/17 10/17/18 oxyCODONE-APAP 10-325MG [Percocet 1 tab PO QID PRN 08/29/17 10/17/18 10-325 mg] OXcarbazepine [Trileptal] 300 mg PO BID 02/05/18 10/17/18 ARIPiprazole [Abilify] 5 mg PO DAILY 03/12/18 10/17/18 Mirtazapine [Remeron] 15 mg PO HS 03/12/18 10/17/18 PARoxetine HCL [Paxil] 40 mg PO DAILY 03/12/18 10/17/18 Topiramate [Topamax] 100 mg PO BID 03/12/18 10/17/18 PARoxetine [Paxil] 20 mg PO DAILY 06/04/18 10/17/18 Atorvastatin Calcium [Lipitor] 10 mg PO DAILY 09/30/18 10/17/18 Ketorolac [Toradol] 10 mg PO Q6HR PRN 10/17/18 10/17/18 Previous Rx's Medication Instructions Recorded Lisinopril [Zestril] 10 mg PO HS tab 08/02/17 SUMAtriptan SUCCINATE [Imitrex] 100 mg PO DAILY PRN tab 08/02/17 metFORMIN HCL [Glucophage] 1,000 mg PO BID-W/MEALS tab 08/02/17 Allergies Allergy/AdvReac Type Severity Reaction Status Date / Time bupropion HCl Allergy Rash/Hives Verified 10/17/18 23:18 [From Wellbutrin] divalproex sodium Allergy Unknown Verified 10/17/18 23:18 [From Depakote] fentanyl Allergy Swelling Verified 10/17/18 23:18 hydrocodone Allergy Itching Verified 10/17/18 23:18 Iodinated Contrast- Oral and Allergy Anaphylaxis Verified 10/17/18 23:18 IV Dye [Iodinated Contrast Media - IV Dye] orange juice [[place]] Allergy Rash/Hives Verified 10/17/18 23:18 Sulfa (Sulfonamide Allergy Rash/Hives Verified 10/17/18 23:18 Antibiotics) Penicillins AdvReac Nausea & Verified 10/17/18 23:18 Vomiting Review of Systems ROS Statement: Those systems with pertinent positive or pertinent negative responses have been documented in the HPI. ROS Other: All systems not noted in ROS Statement are negative. 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 History of Any Multi-Drug Resistant Organisms: None Reported Date of last positivie culture/infection: 05/14/17 MDRO Source:: ESBL URINE Past Surgical History: Bladder Surgery, Section, Cholecystectomy, Hysterectomy, Orthopedic Surgery, Tubal Ligation Additional Past Surgical History / Comment(s): R ovarian cystectomy, laparoscopic surgery for L ovary that had attached to the bowel, D&C, numerous lithotripsies, nephroscopies, cystoscopies and stents to ureters-none in place at this time, L robotic pyeloplasty with post op infection around kidney which then required a picc line/later removed (pt states was not MRSA), L rotator cuff repair, L wrist tendon surgery, colonoscopy Past Anesthesia/Blood Transfusion Reactions: Family History of Problems w/ Anesthesia Additional Past Anesthesia/Blood Transfusion Reaction / Comment(s): dad-hard time waking up due to enzyme problems in liver Past Psychological History: ADD/ADHD, Anxiety, Bipolar, Depression, PTSD Smoking Status: Current every day smoker Past Alcohol Use History: None Reported Past Drug Use History: None Reported - Past Family History Brother(s) Family Medical History: Cancer Additional Family Medical History / Comment(s): testicular Father Family Medical History: Coronary Artery Disease (CAD), CVA/TIA, Diabetes Mellitus, Renal Disease Additional Family Medical History / Comment(s): GLAUCOMA,NEUROPATHY HAD TRIPLE CABG, at 56yrs from renal disease. Mother Family Medical History: Hyperlipidemia Additional Family Medical History / Comment(s): DDD, HAD 3 vessel CABG AGE 54. General Exam - General Exam Comments Initial Comments: General: The patient is awake and alert, in no distress, and does not appear a cutely ill. Eye: Pupils are equal, round and reactive to light, extra-ocular movements are intact. No nystagmus. There is normal conjunctiva bilaterally. No signs of icterus. Ears, nose, mouth and throat: There are moist mucous membranes and no oral lesions. Neck: The neck is supple, there is no tenderness or JVD. Cardiovascular: There is a regular rate and rhythm. No murmur, rub or gallop is appreciated. Respiratory: Lungs are clear to auscultation, respirations are non-labored, breath sounds are equal. No wheezes, stridor, rales, or rhonchi. Gastrointestinal: Soft, non-distended, non-tender abdomen without masses or organomegaly noted. There is no rebound or guarding present. No CVA tenderness. Bowel sounds are unremarkable. Musculoskeletal: Normal ROM, no tenderness. Strength 5/5. Sensation intact. Pulses equal bilaterally 2+. Neurological: A&O x 3. CN II-XII intact, There are no obvious motor or sensory deficits. Coordination appears grossly intact. Speech is normal. Skin: Skin is warm and dry and no rashes or lesions are noted. Psychiatric: Cooperative, appropriate mood & affect, normal judgment. Limitations: no limitations Course Vital Signs 10/17/18 23:03 Temperature 98.1 F Pulse Rate 91 Respiratory 18 Rate Blood Pressure 110/77 O2 Sat by Pulse 100 Oximetry Medical Decision Making - Medical Decision Making Appearing 43-year-old male presenting today for chief complaint of right flank pain. History of stones. Patient states identical to previous symptoms. Urinalysis revealed few blood cells, no overt signs of infection. Patient denies constitutional symptoms. Patient presented for pain management. Patient was given Dilaudid. Patient discharged with a ride home. Patient appeared well agreeable plan as well as discharged today. Patient did not want further testing she states she knew this was her kidney stones. Pt is to follow-up with urology as scheduled. Discussed case with Dr. Churchill prior to discharge. - Lab Data Lab Results 10/17/18 Range/Units 23:20 Urine Color Light Yellow Urine Appearance Cloudy H (Clear) Urine pH 6.5 (5.0-8.0) Ur Specific [place] 1.007 (1.001-1.035) Urine Protein Negative (Negative) Urine Glucose (UA) Negative (Negative) Urine Ketones Negative (Negative) Urine Blood Negative (Negative) Urine Nitrite Negative (Negative) Urine Bilirubin Negative (Negative) Urine Urobilinogen <2.0 (<2.0) mg/dL Ur Leukocyte Esterase Negative (Negative) Urine RBC 1 (0-5) /hpf Urine WBC 3 (0-5) /hpf Ur Squamous Epith Cells 3 (0-4) /hpf Urine Bacteria Many H (None) /hpf Disposition Clinical Impression: Right flank pain Disposition: HOME SELF-CARE Condition: Good Instructions (If sedation given, give patient instructions): Flank Pain (ED) Additional Instructions: Please use medication as discussed. Please follow-up with family doctor in the next 2 days and urology as previously scheduled. Please return to emergency room if the symptoms increase or worsen or for any other concerns. Is patient prescribed a controlled substance at d/c from ED?: No Referrals: Melchor Stevens MD [Primary Care Provider] - 1-2 days Time of Disposition: 00:54
== END 2018-10-18 02:21 | disposition home or self-care (01) ==
LOC: EC 22:57
DX: R10.9 Unspecified abdominal pain (principal); F41.9 Anxiety disorder, unspecified; F31.9 Bipolar disorder, unspecified; F43.10 Post-traumatic stress disorder, unspecified; F17.200 Nicotine dependence, unspecified, uncomplicated; Z87.19 Personal history of other diseases of the digestive system; Z87.440 Personal history of urinary (tract) infections; Z87.442 Personal history of urinary calculi; Z87.448 Personal history of other diseases of urinary system; Z90.49 Acquired absence of other specified parts of digestive tract; Z90.710 Acquired absence of both cervix and uterus; Z98.51 Tubal ligation status; Z98.890 Other specified postprocedural states; Z79.899 Other long term (current) drug therapy; Z88.0 Allergy status to penicillin; Z88.2 Allergy status to sulfonamides; Z88.5 Allergy status to narcotic agent; Z88.8 Allergy status to other drugs, medicaments and biological substances; Z91.018 Allergy to other foods; Z91.041 Radiographic dye allergy status
CPT/HCPCS: 81001; 96361; 96374; 99284

== ENCOUNTER 2018-11-28 16:36 | Emergency (ER) | payer OTHER ==
[2018-11-28 16:39] VITALS: RESP 18
[2018-11-28] MEDS ORDERED: KETOROLAC 30 MG/ML 1 ML VIAL IVP STA (17:00)
[2018-11-28] MEDS ORDERED: ONDANSETRON 4 MG/2 ML VIAL IVP STA (17:00)
[2018-11-28 17:32] LABS: Basophils # (A) 0.1 k/uL (0-0.2); Basophils % (A) 1 %; Eosinophils # (A) 0.2 k/uL (0-0.7); Eosinophils % (A) 2 %; HCT 39.2 % (34.0-46.0); HGB 12.9 gm/dL (11.4-16.0); Lymphocytes # (A) 4.1 k/uL (1.0-4.8); Lymphocytes % (A) 45 %; MCH 28.7 pg (25.0-35.0); MCV 86.9 fL (80.0-100.0); Mean Platelet Volume 6.9; Monocytes # (A) 0.5 k/uL (0-1.0); Monocytes % (A) 6 %; Neutrophils # (A) 4.2 k/uL (1.3-7.7); Neutrophils % (A) 45 %; Platelet Count 296 k/uL (150-450); RBC 4.51 m/uL (3.80-5.40); RDW 13.5 % (11.5-15.5); WBC 9.2 k/uL (3.8-10.6)
[2018-11-28] MEDS ORDERED: MORPHINE SULFATE 4 MG/ML SYRINGE IVP STA (17:34)
--- NOTE | 2018-11-28 17:34 | ED ---
General Adult HPI - General Chief complaint: Abdominal Pain Stated complaint: kidney stone Time Seen by Provider: 11/28/18 16:54 Source: patient, RN notes reviewed Mode of arrival: ambulatory Limitations: no limitations - History of Present Illness Initial comments: 43-year-old female with a past medical history of diabetes, GERD, hypertension, frequent kidney stones presents for flank pain. Patient states she has had left-sided flank pain for a few days. States that she noticed hematuria yesterday. States that she has passed several kidney stones. States that the pain is continuing. Denies any abdominal pain. Denies fevers or chills. Denie s dysuria or difficulty urinating.Patient has no other complaints at this time including shortness of breath, chest pain, abdominal pain, nausea or vomiting, headache, or visual changes. - Related Data Home Medications Medication Instructions Recorded Confirmed OLANZapine [ZyPREXA] 10 mg PO BID 08/19/17 10/17/18 oxyCODONE-APAP 10-325MG [Percocet 1 tab PO QID PRN 08/29/17 10/17/18 10-325 mg] OXcarbazepine [Trileptal] 300 mg PO BID 02/05/18 10/17/18 ARIPiprazole [Abilify] 5 mg PO DAILY 03/12/18 10/17/18 Mirtazapine [Remeron] 15 mg PO HS 03/12/18 10/17/18 PARoxetine HCL [Paxil] 40 mg PO DAILY 03/12/18 10/17/18 Topiramate [Topamax] 100 mg PO BID 03/12/18 10/17/18 PARoxetine [Paxil] 20 mg PO DAILY 06/04/18 10/17/18 Atorvastatin Calcium [Lipitor] 10 mg PO DAILY 09/30/18 10/17/18 Ketorolac [Toradol] 10 mg PO Q6HR PRN 10/17/18 10/17/18 Previous Rx's Medication Instructions Recorded Lisinopril [Zestril] 10 mg PO HS tab 08/02/17 SUMAtriptan SUCCINATE [Imitrex] 100 mg PO DAILY PRN tab 08/02/17 metFORMIN HCL [Glucophage] 1,000 mg PO BID-W/MEALS tab 08/02/17 Allergies Allergy/AdvReac Type Severity Reaction Status Date / Time bupropion HCl Allergy Rash/Hives Verified 11/28/18 16:39 [From Wellbutrin] divalproex sodium Allergy Unknown Verified 11/28/18 16:39 [From Depakote] fentanyl Allergy Swelling Verified 11/28/18 16:39 hydrocodone Allergy Itching Verified 11/28/18 16:39 Iodinated Contrast- Oral and Allergy Anaphylaxis Verified 11/28/18 16:39 IV Dye [Iodinated Contrast Media - IV Dye] orange juice [[place]] Allergy Rash/Hives Verified 11/28/18 16:39 Sulfa (Sulfonamide Allergy Rash/Hives Verified 11/28/18 16:39 Antibiotics) Penicillins AdvReac Nausea & Verified 11/28/18 16:39 Vomiting Review of Systems ROS Statement: Those systems with pertinent positive or pertinent negative responses have been documented in the HPI. ROS Other: All systems not noted in ROS Statement are negative. 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 History of Any Multi-Drug Resistant Organisms: None Reported Date of last positivie culture/infection: 05/14/17 MDRO Source:: ESBL URINE Past Surgical History: Bladder Surgery, Section, Cholecystectomy, Hysterectomy, Orthopedic Surgery, Tubal Ligation Additional Past Surgical History / Comment(s): R ovarian cystectomy, laparos copic surgery for L ovary that had attached to the bowel, D&C, numerous lithotripsies, nephroscopies, cystoscopies and stents to ureters-none in place at this time, L robotic pyeloplasty with post op infection around kidney which then required a picc line/later removed (pt states was not MRSA), L rotator cuff repair, L wrist tendon surgery, colonoscopy Past Anesthesia/Blood Transfusion Reactions: Family History of Problems w/ Anesthesia Additional Past Anesthesia/Blood Transfusion Reaction / Comment(s): dad-hard time waking up due to enzyme problems in liver Past Psychological History: ADD/ADHD, Anxiety, Bipolar, Depression, PTSD Smoking Status: Current every day smoker Past Alcohol Use History: None Reported Past Drug Use History: None Reported - Past Family History Brother(s) Family Medical History: Cancer Additional Family Medical History / Comment(s): testicular Father Family Medical History: Coronary Artery Disease (CAD), CVA/TIA, Diabetes Mellitus, Renal Disease Additional Family Medical History / Comment(s): GLAUCOMA,NEUROPATHY HAD TRIPLE CABG, at 56yrs from renal disease. Mother Family Medical History: Hyperlipidemia Additional Family Medical History / Comment(s): DDD, HAD 3 vessel CABG AGE 54. General Exam Limitations: no limitations General appearance: alert, in no apparent distress Head exam: Present: atraumatic, normocephalic, normal inspection Eye exam: Present: normal appearance, PERRL, EOMI. Absent: scleral icterus, conjunctival injection, periorbital swelling ENT exam: Present: normal exam, mucous membranes moist Neck exam: Present: normal inspection, full ROM. Absent: tenderness, meningismus, lymphadenopathy Respiratory exam: Present: normal lung sounds bilaterally. Absent: respiratory distress, wheezes, rales, rhonchi, stridor Cardiovascular Exam: Present: regular rate, normal rhythm, normal heart sounds. Absent: systolic murmur, diastolic murmur, rubs, gallop, clicks GI/Abdominal exam: Present: soft, normal bowel sounds. Absent: distended, tenderness, guarding, rebound, rigid Back exam: Present: CVA tenderness (L). Absent: CVA tenderness (R) Neurological exam: Present: alert, oriented X3, CN II-XII intact Psychiatric exam: Present: normal affect, normal mood Course Vital Signs 11/28/18 16:38 Temperature 97.0 F L Pulse Rate 76 Respiratory 18 Rate Blood Pressure 111/71 O2 Sat by Pulse 100 Oximetry Medical Decision Making - Medical Decision Making 43-year-old female well-known to this emergency department presents to the emergency department for a chief complaint of left flank pain. States this has been ongoing for the past few days. States it feels like a kidney stone. Vitals are stable. It patient does have left CVA tenderness, no abdominal tenderness. Urine does show hematuria. X-ray KUB negative. As patient does have a confirmed history of kidney stones CT will not be repeated as she is seen frequently for this complaint. Patient given Toradol and morphine, feeling better. Patient will follow up with primary care in 1-2 days. She'll return here if she has any worsening symptoms. - Lab Data Result diagrams: 11/28/18 17:00 11/28/18 17:00 Lab Results 11/28/18 11/28/18 11/28/18 Range/Units 17:00 17:00 17:00 WBC 9.2 (3.8-10.6) k/uL RBC 4.51 (3.80-5.40) m/uL Hgb 12.9 (11.4-16.0) gm/dL Hct 39.2 (34.0-46.0) % MCV 86.9 (80.0-100.0) fL MCH 28.7 (25.0-35.0) pg MCHC 33.0 (31.0-37.0) g/dL RDW 13.5 (11.5-15.5) % Plt Count 296 (150-450) k/uL Neutrophils % 45 % Lymphocytes % 45 % Monocytes % 6 % Eosinophils % 2 % Basophils % 1 % Neutrophils # 4.2 (1.3-7.7) k/uL Lymphocytes # 4.1 (1.0-4.8) k/uL Monocytes # 0.5 (0-1.0) k/uL Eosinophils # 0.2 (0-0.7) k/uL Basophils # 0.1 (0-0.2) k/uL Sodium 141 (137-145) mmol/L Potassium 3.8 (3.5-5.1) mmol/L Chloride 109 H (98-107) mmol/L Carbon Dioxide 24 (22-30) mmol/L Anion Gap 8 mmol/L BUN 8 (7-17) mg/dL Creatinine 0.75 (0.52-1.04) mg/dL Est GFR (CKD-EPI)AfAm >90 (>60 ml/min/1.73 sqM) Est GFR (CKD-EPI)NonAf >90 (>60 ml/min/1.73 sqM) Glucose 107 H (74-99) mg/dL Calcium 9.4 (8.4-10.2) mg/dL Total Bilirubin 0.6 (0.2-1.3) mg/dL AST 17 (14-36) U/L ALT 12 (9-52) U/L Alkaline Phosphatase 85 (38-126) U/L Total Protein 6.7 (6.3-8.2) g/dL Albumin 4.0 (3.5-5.0) g/dL Amylase 46 (30-110) U/L Lipase 131 (23-300) U/L Urine Color Yellow Urine Appearance Cloudy H (Clear) Urine pH 7.5 (5.0-8.0) Ur Specific [place] 1.012 (1.001-1.035) Urine Protein Trace H (Negative) Urine Glucose (UA) Negative (Negative) Urine Ketones Negative (Negative) Urine Blood Moderate H (Negative) Urine Nitrite Negative (Negative) Urine Bilirubin Negative (Negative) Urine Urobilinogen <2.0 (<2.0) mg/dL Ur Leukocyte Esterase Trace H (Negative) Urine RBC >182 H (0-5) /hpf Ur Squamous Epith Cells 1 (0-4) /hpf Urine HCG, Qual (Not Detectd) 11/28/18 Range/Units 17:00 WBC (3.8-10.6) k/uL RBC (3.80-5.40) m/uL Hgb (11.4-16.0) gm/dL Hct (34.0-46.0) % MCV (80.0-100.0) fL MCH (25.0-35.0) pg MCHC (31.0-37.0) g/dL RDW (11.5-15.5) % Plt Count (150-450) k/uL Neutrophils % % Lymphocytes % % Monocytes % % Eosinophils % % Basophils % % Neutrophils # (1.3-7.7) k/uL Lymphocytes # (1.0-4.8) k/uL Monocytes # (0-1.0) k/uL Eosinophils # (0-0.7) k/uL Basophils # (0-0.2) k/uL Sodium (137-145) mmol/L Potassium (3.5-5.1) mmol/L Chloride (98-107) mmol/L Carbon Dioxide (22-30) mmol/L Anion Gap mmol/L BUN (7-17) mg/dL Creatinine (0.52-1.04) mg/dL Est GFR (CKD-EPI)AfAm (>60 ml/min/1.73 sqM) Est GFR (CKD-EPI)NonAf (>60 ml/min/1.73 sqM) Glucose (74-99) mg/dL Calcium (8.4-10.2) mg/dL Total Bilirubin (0.2-1.3) mg/dL AST (14-36) U/L ALT (9-52) U/L Alkaline Phosphatase (38-126) U/L Total Protein (6.3-8.2) g/dL Albumin (3.5-5.0) g/dL Amylase (30-110) U/L Lipase (23-300) U/L Urine Color Urine Appearance (Clear) Urine pH (5.0-8.0) Ur Specific [place] (1.001-1.035) Urine Protein (Negative) Urine Glucose (UA) (Negative) Urine Ketones (Negative) Urine Blood (Negative) Urine Nitrite (Negative) Urine Bilirubin (Negative) Urine Urobilinogen (<2.0) mg/dL Ur Leukocyte Esterase (Negative) Urine RBC (0-5) /hpf Ur Squamous Epith Cells (0-4) /hpf Urine HCG, Qual Not Detected (Not Detectd) Disposition Clinical Impression: Left flank pain Disposition: HOME SELF-CARE Condition: Good Instructions (If sedation given, give patient instructions): Flank Pain (ED) Additional Instructions: Please follow up with primary care or urology in 1-2 days. Return here if you have any worsening symptoms. Is patient prescribed a controlled substance at d/c from ED?: No Referrals: Melchor Stevens MD [Primary Care Provider] - 1-2 days Time of Disposition: 18:34
[2018-11-28 17:38] LABS: Appearance,Urine Cloudy (Clear); Bilirubin,Urine Negative (Negative); Blood,Urine Moderate (Negative); Color,Urine Yellow; Glucose,Urine (UA) Negative (Negative); Ketones,Urine Negative (Negative); Leukocyte Esterase,Urine Trace (Negative); Nitrite,Urine Negative (Negative); PH, Urine 7.5 (5.0-8.0); Protein,Urine Trace (Negative); RBC,Urine >182 /hpf (0-5); Specific Gravity,Urine 1.012 (1.001-1.035); Squamous Epithelial Cell,Urine 1 /hpf (0-4); Urobilinogen,Urine <2.0 mg/dL (<2.0)
--- NOTE | 2018-11-28 17:43 | XR ---
EXAMINATION TYPE: XR KUB DATE OF EXAM: 11/28/2018 COMPARISON: 09/30/2018 HISTORY: Left flank pain TECHNIQUE: 2 views upright FINDINGS: There is no sign of intestinal obstruction or pneumoperitoneum. Fecal pattern is normal. Th ere are clips from cholecystectomy. There are no pathologic calcifications over the kidneys. IMPRESSION: Nonacute abdomen. No change.
[2018-11-28 17:44] LABS: ALT 12 U/L (9-52); AST 17 U/L (14-36); Alkaline Phosphatase 85 U/L (38-126); Amylase 46 U/L (30-110); Anion Gap 8 mmol/L; Blood Urea Nitrogen 8 mg/dL (7-17); Calcium 9.4 mg/dL (8.4-10.2); Carbon Dioxide 24 mmol/L (22-30); Chloride 109 mmol/L (98-107); Glucose 107 mg/dL (74-99); Lipase 131 U/L (23-300); Potassium 3.8 mmol/L (3.5-5.1); Sodium 141 mmol/L (137-145); Total Bilirubin 0.6 mg/dL (0.2-1.3); Total Protein 6.7 g/dL (6.3-8.2)
[2018-11-28 19:15] VITALS: BP 104/70; PULSE 66; TEMP 98
== END 2018-11-28 19:23 | disposition home or self-care (01) ==
LOC: EC 16:36
DX: R10.9 Unspecified abdominal pain (principal); R31.9 Hematuria, unspecified; I10 Essential (primary) hypertension; G43.909 Migraine, unspecified, not intractable, without status migrainosus; F31.9 Bipolar disorder, unspecified; F90.9 Attention-deficit hyperactivity disorder, unspecified type; F43.10 Post-traumatic stress disorder, unspecified; F17.200 Nicotine dependence, unspecified, uncomplicated; Z79.899 Other long term (current) drug therapy; Z88.5 Allergy status to narcotic agent; Z88.2 Allergy status to sulfonamides; Z88.0 Allergy status to penicillin; Z91.041 Radiographic dye allergy status; Z88.8 Allergy status to other drugs, medicaments and biological substances; Z90.49 Acquired absence of other specified parts of digestive tract
CPT/HCPCS: 36415; 80053; 82150; 83690; 85025; 81001; 81025; 74018; 99284; 96374; 96375 ×2; J2270; J2405; J1885

== ENCOUNTER 2018-12-04 12:40 | Emergency (ER) | payer OTHER ==
[2018-12-04 12:55] VITALS: RESP 18; TEMP 98.5
[2018-12-04] MEDS ORDERED: KETOROLAC 30 MG/ML 1 ML VIAL IVP STA (13:29)
[2018-12-04] MEDS ORDERED: SODIUM CHLORIDE 0.9% 1,000 ML IV STA ×2 (13:29)
[2018-12-04] MEDS ORDERED: MORPHINE SULFATE 4 MG/ML SYRINGE IV STA (13:29)
[2018-12-04 14:00] LABS: Appearance,Urine Clear (Clear); Bacteria,Urine Rare /hpf; Bilirubin,Urine Negative (Negative); Blood,Urine Large (Negative); Color,Urine Light Red; Glucose,Urine (UA) Negative (Negative); Ketones,Urine Negative (Negative); Leukocyte Esterase,Urine Negative (Negative); Mucus,Urine Rare /hpf; Nitrite,Urine Negative (Negative); Protein,Urine Trace (Negative); RBC,Urine >182 /hpf (0-5); Specific Gravity,Urine 1.013 (1.001-1.035); Squamous Epithelial Cell,Urine 3 /hpf (0-4); Urobilinogen,Urine <2.0 mg/dL (<2.0)
[2018-12-04 14:09] LABS: Basophils % (A) 0 %; Eosinophils # (A) 0.1 k/uL (0-0.7); Eosinophils % (A) 2 %; HCT 39.5 % (34.0-46.0); HGB 13.1 gm/dL (11.4-16.0); Lymphocytes # (A) 3.2 k/uL (1.0-4.8); Lymphocytes % (A) 38 %; MCH 28.6 pg (25.0-35.0); MCHC 33.1 g/dL (31.0-37.0); MCV 86.4 fL (80.0-100.0); Monocytes # (A) 0.3 k/uL (0-1.0); Monocytes % (A) 4 %; Neutrophils # (A) 4.8 k/uL (1.3-7.7); Neutrophils % (A) 55 %; Platelet Count 281 k/uL (150-450); RBC 4.57 m/uL (3.80-5.40); RDW 13.4 % (11.5-15.5); WBC 8.6 k/uL (3.8-10.6)
[2018-12-04 14:13] LABS: ALT 14 U/L (9-52); AST 19 U/L (14-36); African American GFR (CKD) >90 (>60 ml/min/1.73 sqM); Albumin 4.4 g/dL (3.5-5.0); Alkaline Phosphatase 85 U/L (38-126); Amylase 51 U/L (30-110); Anion Gap 11 mmol/L; Blood Urea Nitrogen 9 mg/dL (7-17); Calcium 9.5 mg/dL (8.4-10.2); Carbon Dioxide 19 mmol/L (22-30); Chloride 111 mmol/L (98-107); Glucose 101 mg/dL (74-99); Lipase 128 U/L (23-300); Potassium 3.6 mmol/L (3.5-5.1); Sodium 141 mmol/L (137-145); Total Bilirubin 0.8 mg/dL (0.2-1.3); Total Protein 7.1 g/dL (6.3-8.2)
--- NOTE | 2018-12-04 14:13 | XR ---
EXAMINATION TYPE: XR KUB DATE OF EXAM: 12/04/2018 COMPARISON: 11/28/2018 HISTORY: Left flank pain TECHNIQUE: One view abdominal series FINDINGS: The osseous structures are intact. The bowel gas pattern is nonspecific. Scattered air-fluid levels are seen. There are surgical clips in the gallbladder fossa. No suspicious calcifications are noted. Calcifications the pelvis are likely vascular. Hypertrophic change of the acetabulum can be associate d with femoral acetabular impingement. IMPRESSION: 1. No suspicious calcifications by standard x-ray. 2. Air-fluid levels in the right abdomen could be associated with an ileus or enteritis correlate cli nically.
[2018-12-04 14:14] LABS: INR 0.9 (<1.2); Partial Thromboplastin Time 25.6 sec (22.0-30.0); Prothrombin Time 9.9 sec (9.0-12.0)
--- NOTE | 2018-12-04 14:15 | ED ---
Abdominal Pain HPI - General Chief Complaint: Abdominal Pain Stated Complaint: Kidney stone Time Seen by Provider: 12/04/18 12:59 Source: patient, RN notes reviewed, old records reviewed Mode of arrival: ambulatory Limitations: no limitations - History of Present Illness Initial Comments: This Patient is a well-known for [id number] female presents to ED today with complaints of dysuria, left flank pain. Onset of symptoms started today. She is treated last week for a kidney stone. She reports that she chronically has consistent over the left side. Patient states that she's had no associated chest pain. She does report fevers 102 last night. She does state she has been nauseated and has had some vomiting episodes. Patient relates that she's had no other significant complaints. He does follow with Dr. Ortega. She took a Percocet and Toradol HOME. - Related Data Home Medications Medication Instructions Recorded Confirmed OLANZapine [ZyPREXA] 10 mg PO BID 08/19/17 12/04/18 oxyCODONE-APAP 10-325MG [Percocet 1 tab PO QID PRN 08/29/17 12/04/18 10-325 mg] OXcarbazepine [Trileptal] 300 mg PO BID 02/05/18 12/04/18 ARIPiprazole [Abilify] 5 mg PO DAILY 03/12/18 12/04/18 Mirtazapine [Remeron] 15 mg PO HS 03/12/18 12/04/18 PARoxetine HCL [Paxil] 40 mg PO DAILY 03/12/18 12/04/18 Topiramate [Topamax] 100 mg PO BID 03/12/18 12/04/18 PARoxetine [Paxil] 20 mg PO DAILY 06/04/18 12/04/18 Atorvastatin Calcium [Lipitor] 10 mg PO DAILY 09/30/18 12/04/18 Ketorolac [Toradol] 10 mg PO Q6HR PRN 10/17/18 12/04/18 Previous Rx's Medication Instructions Recorded Lisinopril [Zestril] 10 mg PO HS tab 08/02/17 SUMAtriptan SUCCINATE [Imitrex] 100 mg PO DAILY PRN tab 08/02/17 metFORMIN HCL [Glucophage] 1,000 mg PO BID-W/MEALS tab 08/02/17 Ciprofloxacin HCl [Cipro] 500 mg PO Q12HR 7 Days #14 tab 12/04/18 Allergies Allergy/AdvReac Type Severity Reaction Status Date / Time bupropion HCl Allergy Rash/Hives Verified 12/04/18 13:27 [From Wellbutrin] divalproex sodium Allergy Unknown Verified 12/04/18 13:27 [From Depakote] fentanyl Allergy Swelling Verified 12/04/18 13:27 hydrocodone Allergy Itching Verified 12/04/18 13:27 Iodinated Contrast- Oral and Allergy Anaphylaxis Verified 12/04/18 13:27 IV Dye [Iodinated Contrast Media - IV Dye] orange juice [[place]] Allergy Rash/Hives Verified 12/04/18 13:27 Sulfa (Sulfonamide Allergy Rash/Hives Verified 12/04/18 13:27 Antibiotics) Penicillins AdvReac Nausea & Verified 12/04/18 13:27 Vomiting Review of Systems ROS Statement: Those systems with pertinent positive or pertinent negative responses have been documented in the HPI. ROS Other: All systems not noted in ROS Statement are negative. 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 History of Any Multi-Drug Resistant Organisms: None Reported Date of last positivie culture/infection: 05/14/17 MDRO Source:: ESBL URINE Past Surgical History: Bladder Surgery, Section, Cholecystectomy, Hysterectomy, Orthopedic Surgery, Tubal Ligation Additional Past Surgical History / Comment(s): R ovarian cystectomy, laparoscopic surgery for L ovary that had attached to the bowel, D&C, numerous lithotripsies, nephroscopies, cystoscopies and stents to ureters-none in place at this time, L robotic pyeloplasty with post op infection around kidney which then required a picc line/later removed (pt states was not MRSA), L rotator cuff repair, L wrist tendon surgery, colonoscopy Past Anesthesia/Blood Transfusion Reactions: Family History of Problems w/ Anesthesia Additional Past Anesthesia/Blood Transfusion Reaction / Comment(s): dad-hard time waking up due to enzyme problems in liver Past Psychological History: ADD/ADHD, Anxiety, Bipolar, Depression, PTSD Smoking Status: Current every day smoker Past Alcohol Use History: None Reported Past Drug Use History: None Reported - Past Family History Brother(s) Family Medical History: Cancer Additional Family Medical History / Comment(s): testicular Father Family Medical History: Coronary Artery Disease (CAD), CVA/TIA, Diabetes Mellitus, Renal Disease Additional Family Medical History / Comment(s): GLAUCOMA,NEUROPATHY HAD TRIPLE CABG, at 56yrs from renal disease. Mother Family Medical History: Hyperlipidemia Additional Family Medical History / Comment(s): DDD, HAD 3 vessel CABG AGE 54. General Exam - General Exam Comments Initial Comments: Physical 43-year-old female. Alert and oriented 3. No significant distress. Limitations: no limitations General appearance: alert, in no apparent distress Head exam: Present: atraumatic, normocephalic, normal inspection Eye exam: Present: normal appearance, PERRL, EOMI. Absent: scleral icterus, conjunctival injection, periorbital swelling ENT exam: Present: normal exam, mucous membranes moist Neck exam: Present: normal inspection Respiratory exam: Present: normal lung sounds bilaterally Cardiovascular Exam: Present: regular rate, normal rhythm, normal heart sounds. Absent: systolic murmur, diastolic murmur, rubs, gallop, clicks GI/Abdominal exam: Present: soft, normal bowel sounds. Absent: distended, tenderness, guarding, rebound, rigid Extremities exam: Present: normal inspection, full ROM, normal capillary refill. Absent: tenderness, pedal edema, joint swelling, calf tenderness Back exam: Present: normal inspection, CVA tenderness (L) Neurological exam: Present: alert, oriented X3, CN II-XII intact Course Vital Signs 12/04/18 12/04/18 12/04/18 12:53 13:56 15:27 Temperature 98.5 F Pulse Rate 85 87 60 Respiratory 18 18 18 Rate Blood Pressure 113/70 127/89 107/71 O2 Sat by Pulse 99 97 99 Oximetry 12/04/18 16:20 Temperature Pulse Rate 78 Respiratory 18 Rate Blood Pressure 121/72 O2 Sat by Pulse 100 Oximetry Medical Decision Making - Medical Decision Making This is a 43 year old female, no distress. She presents today with L flank pain, well known to ED for kidney stones. She has blood in urine. She has reported fever today. Labs were reviewed and normal. UA shows RBC and some WBC. With fever suma treat patient for UTI. PAtient US shows no hydronephrosis or nephrolithiasis. Discussed urology follow up. - Lab Data Result diagrams: 12/04/18 13:46 12/04/18 13:46 Lab Results 12/04/18 12/04/18 12/04/18 Range/Units 13:15 13:46 13:46 WBC 8.6 (3.8-10.6) k/uL RBC 4.57 (3.80-5.40) m/uL Hgb 13.1 (11.4-16.0) gm/dL Hct 39.5 (34.0-46.0) % MCV 86.4 (80.0-100.0) fL MCH 28.6 (25.0-35.0) pg MCHC 33.1 (31.0-37.0) g/dL RDW 13.4 (11.5-15.5) % Plt Count 281 (150-450) k/uL Neutrophils % 55 % Lymphocytes % 38 % Monocytes % 4 % Eosinophils % 2 % Basophils % 0 % Neutrophils # 4.8 (1.3-7.7) k/uL Lymphocytes # 3.2 (1.0-4.8) k/uL Monocytes # 0.3 (0-1.0) k/uL Eosinophils # 0.1 (0-0.7) k/uL Basophils # 0.0 (0-0.2) k/uL PT (9.0-12.0) sec INR (<1.2) APTT (22.0-30.0) sec Sodium 141 (137-145) mmol/L Potassium 3.6 (3.5-5.1) mmol/L Chloride 111 H (98-107) mmol/L Carbon Dioxide 19 L (22-30) mmol/L Anion Gap 11 mmol/L BUN 9 (7-17) mg/dL Creatinine 0.74 (0.52-1.04) mg/dL Est GFR (CKD-EPI)AfAm >90 (>60 ml/min/1.73 sqM) Est GFR (CKD-EPI)NonAf >90 (>60 ml/min/1.73 sqM) Glucose 101 H (74-99) mg/dL Calcium 9.5 (8.4-10.2) mg/dL Total Bilirubin 0.8 (0.2-1.3) mg/dL AST 19 (14-36) U/L ALT 14 (9-52) U/L Alkaline Phosphatase 85 (38-126) U/L Total Protein 7.1 (6.3-8.2) g/dL Albumin 4.4 (3.5-5.0) g/dL Amylase 51 (30-110) U/L Lipase 128 (23-300) U/L Urine Color Light Red Urine Appearance Clear (Clear) Urine pH 6.0 (5.0-8.0) Ur Specific [place] 1.013 (1.001-1.035) Urine Protein Trace H (Negative) Urine Glucose (UA) Negative (Negative) Urine Ketones Negative (Negative) Urine Blood Large H (Negative) Urine Nitrite Negative (Negative) Urine Bilirubin Negative (Negative) Urine Urobilinogen <2.0 (<2.0) mg/dL Ur Leukocyte Esterase Negative (Negative) Urine RBC >182 H (0-5) /hpf Urine WBC 20 H (0-5) /hpf Ur Squamous Epith Cells 3 (0-4) /hpf Urine Bacteria Rare H (None) /hpf Urine Mucus Rare H (None) /hpf 12/04/18 Range/Units 13:46 WBC (3.8-10.6) k/uL RBC (3.80-5.40) m/uL Hgb (11.4-16.0) gm/dL Hct (34.0-46.0) % MCV (80.0-100.0) fL MCH (25.0-35.0) pg MCHC (31.0-37.0) g/dL RDW (11.5-15.5) % Plt Count (150-450) k/uL Neutrophils % % Lymphocytes % % Monocytes % % Eosinophils % % Basophils % % Neutrophils # (1.3-7.7) k/uL Lymphocytes # (1.0-4.8) k/uL Monocytes # (0-1.0) k/uL Eosinophils # (0-0.7) k/uL Basophils # (0-0.2) k/uL PT 9.9 (9.0-12.0) sec INR 0.9 (<1.2) APTT 25.6 (22.0-30.0) sec Sodium (137-145) mmol/L Potassium (3.5-5.1) mmol/L Chloride (98-107) mmol/L Carbon Dioxide (22-30) mmol/L Anion Gap mmol/L BUN (7-17) mg/dL Creatinine (0.52-1.04) mg/dL Est GFR (CKD-EPI)AfAm (>60 ml/min/1.73 sqM) Est GFR (CKD-EPI)NonAf (>60 ml/min/1.73 sqM) Glucose (74-99) mg/dL Calcium (8.4-10.2) mg/dL Total Bilirubin (0.2-1.3) mg/dL AST (14-36) U/L ALT (9-52) U/L Alkaline Phosphatase (38-126) U/L Total Protein (6.3-8.2) g/dL Albumin (3.5-5.0) g/dL Amylase (30-110) U/L Lipase (23-300) U/L Urine Color Urine Appearance (Clear) Urine pH (5.0-8.0) Ur Specific [place] (1.001-1.035) Urine Protein (Negative) Urine Glucose (UA) (Negative) Urine Ketones (Negative) Urine Blood (Negative) Urine Nitrite (Negative) Urine Bilirubin (Negative) Urine Urobilinogen (<2.0) mg/dL Ur Leukocyte Esterase (Negative) Urine RBC (0-5) /hpf Urine WBC (0-5) /hpf Ur Squamous Epith Cells (0-4) /hpf Urine Bacteria (None) /hpf Urine Mucus (None) /hpf - Radiology Data Radiology results: report reviewed No nephrolithiasis or hydronephrosis. Disposition Clinical Impression: Hematuria, Left flank pain Disposition: HOME SELF-CARE Condition: Good Instructions (If sedation given, give patient instructions): Kidney Stones (ED) Additional Instructions: Follow-up with urology. Take antibiotics as prescribed. Antibiotics are sent to pharmacy on file. Rest, remain hydrated. Take at home pain medication, nausea medicine. Prescriptions: Ciprofloxacin HCl [Cipro] 500 mg PO Q12HR 7 Days #14 tab Is patient prescribed a controlled substance at d/c from ED?: No Referrals: Melchor Stevens MD [Primary Care Provider] - 1-2 days Malachi Ortega MD [STAFF PHYSICIAN] - 1-2 days Time of Disposition: 15:41
--- NOTE | 2018-12-04 15:23 | US ---
EXAMINATION TYPE: US renals and bladder DATE OF EXAM: 12/04/2018 COMPARISON: CT 08/11/18 CLINICAL HISTORY: Pain. lt sided pain x 2 weeks. history of renal stones. EXAM MEASUREMENTS: Right Kidney: 11.1 x 5.3 x 3.6 cm Left Kidney: 10.9 x 5.5 x 5.5 cm Post Void Residual Volume: 9.0 mL Right Kidney: No hydronephrosis or masses seen Left Kidney: No hydronephrosis or masses seen Bladder: wnl Bilateral Jets seen: Yes Normal Post Void Residual: Yes There is no evidence for hydronephrosis at this point in time. No nephrolithiasis is seen. No aurora s are identified. The urinary bladder is anechoic. Bilateral ureteral jets are seen. IMPRESSION: No hydronephrosis or nephrolithiasis.
[2018-12-04] MEDS ORDERED: HYDROmorphone 1 MG/ML 1 ML SYRINGE IVP STA (15:41)
[2018-12-04 16:21] VITALS: BP 121/72; PULSE 78
== END 2018-12-04 16:20 | disposition home or self-care (01) ==
LOC: EC 12:40
DX: R10.9 Unspecified abdominal pain (principal); R31.9 Hematuria, unspecified; E11.9 Type 2 diabetes mellitus without complications; K21.9 Gastro-esophageal reflux disease without esophagitis; I10 Essential (primary) hypertension; G43.909 Migraine, unspecified, not intractable, without status migrainosus; F31.9 Bipolar disorder, unspecified; F90.9 Attention-deficit hyperactivity disorder, unspecified type; F41.9 Anxiety disorder, unspecified; F43.10 Post-traumatic stress disorder, unspecified; F17.200 Nicotine dependence, unspecified, uncomplicated; Z79.899 Other long term (current) drug therapy; Z88.0 Allergy status to penicillin; Z88.2 Allergy status to sulfonamides; Z88.5 Allergy status to narcotic agent; Z91.041 Radiographic dye allergy status; Z88.8 Allergy status to other drugs, medicaments and biological substances; Z91.018 Allergy to other foods; Z90.49 Acquired absence of other specified parts of digestive tract; Z90.710 Acquired absence of both cervix and uterus
CPT/HCPCS: 36415; 80053; 82150; 83690; 85025; 85610; 85730; 81001; 87086; 74018; 76770; 99285; 96374; 96375 ×2; 96361 ×2; J2270; J1885; J1170

== ENCOUNTER 2018-12-07 14:03 | Emergency (ER) | payer OTHER ==
[2018-12-07] MEDS ORDERED: MORPHINE SULFATE 4 MG/ML SYRINGE IV STA (14:41)
[2018-12-07] MEDS ORDERED: KETOROLAC 30 MG/ML 1 ML VIAL IVP STA (14:41)
[2018-12-07] MEDS ORDERED: SODIUM CHLORIDE 0.9% 1,000 ML IV STA (14:41)
[2018-12-07] MEDS ORDERED: ONDANSETRON 4 MG/2 ML VIAL IVP STA (14:41)
--- NOTE | 2018-12-07 14:44 | ED ---
Abdominal Pain HPI - General Chief Complaint: Abdominal Pain Stated Complaint: Flank pain Time Seen by Provider: 12/07/18 14:12 Source: patient, RN notes reviewed, old records reviewed Mode of arrival: ambulatory Limitations: no limitations - History of Present Illness Initial Comments: Patient is a 43-year-old female presents emergency department today for evaluation for abdominal pain. She reports that she has chronic kidney stones. She presents with left-sided flank pain. Persistent for the past week. She takes at home Percocet and Toradol and Zofran. She evaluated by myself 2 days ago for similar complains. At that time Patient was placed on antibiotics for possible early infection. She denies any recent fevers or chills. - Related Data Home Medications Medication Instructions Recorded Confirmed OLANZapine [ZyPREXA] 10 mg PO BID 08/19/17 12/04/18 oxyCODONE-APAP 10-325MG [Percocet 1 tab PO QID PRN 08/29/17 12/04/18 10-325 mg] OXcarbazepine [Trileptal] 300 mg PO BID 02/05/18 12/04/18 ARIPiprazole [Abilify] 5 mg PO DAILY 03/12/18 12/04/18 Mirtazapine [Remeron] 15 mg PO HS 03/12/18 12/04/18 PARoxetine HCL [Paxil] 40 mg PO DAILY 03/12/18 12/04/18 Topiramate [Topamax] 100 mg PO BID 03/12/18 12/04/18 PARoxetine [Paxil] 20 mg PO DAILY 06/04/18 12/04/18 Atorvastatin Calcium [Lipitor] 10 mg PO DAILY 09/30/18 12/04/18 Ketorolac [Toradol] 10 mg PO Q6HR PRN 10/17/18 12/04/18 Previous Rx's Medication Instructions Recorded Lisinopril [Zestril] 10 mg PO HS tab 08/02/17 SUMAtriptan SUCCINATE [Imitrex] 100 mg PO DAILY PRN tab 08/02/17 metFORMIN HCL [Glucophage] 1,000 mg PO BID-W/MEALS tab 08/02/17 Ciprofloxacin HCl [Cipro] 500 mg PO Q12HR 7 Days #14 tab 12/04/18 Allergies Allergy/AdvReac Type Severity Reaction Status Date / Time bupropion HCl Allergy Rash/Hives Verified 12/07/18 14:10 [From Wellbutrin] divalproex sodium Allergy Unknown Verified 12/07/18 14:10 [From Depakote] fentanyl Allergy Swelling Verified 12/07/18 14:10 hydrocodone Allergy Itching Verified 12/07/18 14:10 Iodinated Contrast- Oral and Allergy Anaphylaxis Verified 12/07/18 14:10 IV Dye [Iodinated Contrast Media - IV Dye] orange juice [[place]] Allergy Rash/Hives Verified 12/07/18 14:10 Sulfa (Sulfonamide Allergy Rash/Hives Verified 12/07/18 14:10 Antibiotics) Penicillins AdvReac Nausea & Verified 12/07/18 14:10 Vomiting Review of Systems ROS Statement: Those systems with pertinent positive or pertinent negative responses have been documented in the HPI. ROS Other: All systems not noted in ROS Statement are negative. 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 History of Any Multi-Drug Resistant Organisms: None Reported Date of last positivie culture/infection: 05/14/17 MDRO Source:: ESBL URINE Past Surgical History: Bladder Surgery, Section, Cholecystectomy, Hysterectomy, Orthopedic Surgery, Tubal Ligation Additional Past Surgical History / Comment(s): R ovarian cystectomy, laparoscopic surgery for L ovary that had attached to the bowel, D&C, numerous lithotripsies, nephroscopies, cystoscopies and stents to ureters-none in place at this time, L robotic pyeloplasty with post op infection around kidney which then required a picc line/later removed (pt states was not MRSA), L rotator cuff repair, L wrist tendon surgery, colonoscopy Past Anesthesia/Blood Transfusion Reactions: Family History of Problems w/ Anesthesia Additional Past Anesthesia/Blood Transfusion Reaction / Comment(s): dad-hard time waking up due to enzyme problems in liver Past Psychological History: ADD/ADHD, Anxiety, Bipolar, Depression, PTSD Smoking Status: Current every day smoker Past Alcohol Use History: None Reported Past Drug Use History: None Reported - Past Family History Brother(s) Family Medical History: Cancer Additional Family Medical History / Comment(s): testicular Father Family Medical History: Coronary Artery Disease (CAD), CVA/TIA, Diabetes Mellitus, Renal Disease Additional Family Medical History / Comment(s): GLAUCOMA,NEUROPATHY HAD TRIPLE CABG, at 56yrs from renal disease. Mother Family Medical History: Hyperlipidemia Additional Family Medical History / Comment(s): DDD, HAD 3 vessel CABG AGE 54. General Exam - General Exam Comments Initial Comments: Alert and oriented 43-year-old female. No distress. General: Well appearing, well nourished, in no distress. Oriented x 3, normal mood and affect . Ambulating without difficulty. Skin: Good turgor, no rash, unusual bruising or prominent lesions Hair: Normal texture and distribution. HEENT: Head: Normocephalic, atraumatic, no visible or palpable masses, depressions, or scaring. Eyes: Visual acuity intact, conjunctiva clear, sclera non-icteric, EOM intact, PERRL. Ears: EACs clear, TMs translucent & cone of light visualized. hearing intact. Nose: No external lesions, mucosa non-inflamed, septum and turbinates normal Mouth: Mucous membranes moist, no mucosal lesions. Teeth/Gums: No obvious caries or periodontal disease. No gingival inflammation or significant resorption. Pharynx: Mucosa non-inflamed, no tonsillar hypertrophy or exudate Neck: Supple, without lesions, bruits, or adenopathy, thyroid non-enlarged and non-tender Heart: No cardiomegaly or thrills; regular rate and rhythm, no murmur or gallop Lungs: Clear to auscultation and percussion Abdomen: Bowel sounds normal, no tenderness, organomegaly, masses, or hernia Back: Spine normal without deformity or tenderness, no CVA tenderness Rectal: Normal sphincter tone, no hemorrhoids or masses palpable Extremities: No amputations or deformities, cyanosis, edema or varicosities, peripheral pulses intact Musculoskeletal: Normal gait and station. No misalignment, asymmetry, crepitation, defects, tenderness, masses, effusions, decreased range of motion, instability, atrophy or abnormal strength or tone in the head, neck, spine, ribs, pelvis or extremities. Neurologic: CN 2-12 normal. Sensation to pain, touch, and proprioception normal. DTRs normal in upper and lower extremities. No pathologic reflexes. Psychiatric: Oriented X3, intact recent and remote memory, judgment and insight, normal mood and affect. Limitations: no limitations Course Vital Signs 12/07/18 12/07/18 12/07/18 14:08 16:19 17:40 Temperature 97.9 F 98.4 F 98.4 F Pulse Rate 82 70 77 Respiratory 18 16 18 Rate Blood Pressure 145/84 121/78 123/72 O2 Sat by Pulse 99 98 99 Oximetry Medical Decision Making - Medical Decision Making Patient's 43-year-old female presents today with left-sided flank pain, concern for kidney stone. She seen by myself 2 days ago. Attempted ultrasound which was negative for hydronephrosis or nephrolithiasis. Patient's urinalysis continues to have red blood cells within the urine. Blood work including white blood cell count and kidney fracture as reviewed and normal. Patient's KUB shows evidence of enteritis or ileus. She does report multiple episodes of vomiting but normal stools. Patient is referred daughter after receiving pain medication does feel better. She states she has an appointment on Sunday with her primary care doctor neurologist. Patient states she was be discharged home at this time. Patient's pain is manageable after dose of morphine and Toradol. Discussed strict return parameters and close PCP follow-up. - Lab Data Result diagrams: 12/07/18 15:03 12/07/18 15:03 Lab Results 12/07/18 12/07/18 12/07/18 Range/Units 14:55 15:03 15:03 WBC 9.2 (3.8-10.6) k/uL RBC 4.89 (3.80-5.40) m/uL Hgb 13.9 (11.4-16.0) gm/dL Hct 42.2 (34.0-46.0) % MCV 86.3 (80.0-100.0) fL MCH 28.4 (25.0-35.0) pg MCHC 32.9 (31.0-37.0) g/dL RDW 13.4 (11.5-15.5) % Plt Count 286 (150-450) k/uL Neutrophils % 53 % Lymphocytes % 39 % Monocytes % 4 % Eosinophils % 2 % Basophils % 1 % Neutrophils # 4.9 (1.3-7.7) k/uL Lymphocytes # 3.6 (1.0-4.8) k/uL Monocytes # 0.4 (0-1.0) k/uL Eosinophils # 0.2 (0-0.7) k/uL Basophils # 0.1 (0-0.2) k/uL Sodium 142 (137-145) mmol/L Potassium 3.9 (3.5-5.1) mmol/L Chloride 112 H (98-107) mmol/L Carbon Dioxide 20 L (22-30) mmol/L Anion Gap 10 mmol/L BUN 8 (7-17) mg/dL Creatinine 0.74 (0.52-1.04) mg/dL Est GFR (CKD-EPI)AfAm >90 (>60 ml/min/1.73 sqM) Est GFR (CKD-EPI)NonAf >90 (>60 ml/min/1.73 sqM) Glucose 76 (74-99) mg/dL Calcium 9.8 (8.4-10.2) mg/dL Total Bilirubin 0.9 (0.2-1.3) mg/dL AST 20 (14-36) U/L ALT 15 (9-52) U/L Alkaline Phosphatase 94 (38-126) U/L Total Protein 7.8 (6.3-8.2) g/dL Albumin 4.8 (3.5-5.0) g/dL Amylase 65 (30-110) U/L Lipase 415 H (23-300) U/L Urine Color Light Red Urine Appearance Cloudy H (Clear) Urine pH 7.0 (5.0-8.0) Ur Specific [place] 1.004 (1.001-1.035) Urine Protein 1+ H (Negative) Urine Glucose (UA) Negative (Negative) Urine Ketones Negative (Negative) Urine Blood Large H (Negative) Urine Nitrite Negative (Negative) Urine Bilirubin Negative (Negative) Urine Urobilinogen <2.0 (<2.0) mg/dL Ur Leukocyte Esterase Trace H (Negative) Urine RBC 162 H (0-5) /hpf Urine WBC 12 H (0-5) /hpf Ur Squamous Epith Cells 8 H (0-4) /hpf Urine Bacteria Many H (None) /hpf - Radiology Data Radiology results: report reviewed Scattered small colonic air-fluid levels could reflect enteritis or mild generalized colonic ileus. No evidence of bowel instruction or free and turbinates are air. Disposition Clinical Impression: Flank pain, Hematuria Disposition: HOME SELF-CARE Condition: Good Instructions (If sedation given, give patient instructions): Abdominal Pain (ED) Additional Instructions: Patient advised close follow-up with primary care physician on Sunday. Cont inue at home pain medications. The antibiotics as previously prescribed. Is patient prescribed a controlled substance at d/c from ED?: No Referrals: Melchor Stevens MD [Primary Care Provider] - 1-2 days Time of Disposition: 17:30
[2018-12-07 15:11] LABS: Appearance,Urine Cloudy (Clear); Bacteria,Urine Many /hpf; Bilirubin,Urine Negative (Negative); Blood,Urine Large (Negative); Color,Urine Light Red; Glucose,Urine (UA) Negative (Negative); Ketones,Urine Negative (Negative); Leukocyte Esterase,Urine Trace (Negative); Nitrite,Urine Negative (Negative); Protein,Urine 1+ (Negative); RBC,Urine 162 /hpf (0-5); Specific Gravity,Urine 1.004 (1.001-1.035); Squamous Epithelial Cell,Urine 8 /hpf (0-4); Urobilinogen,Urine <2.0 mg/dL (<2.0); WBC,Urine 12 /hpf (0-5)
[2018-12-07 15:22] LABS: Basophils # (A) 0.1 k/uL (0-0.2); Basophils % (A) 1 %; Eosinophils # (A) 0.2 k/uL (0-0.7); Eosinophils % (A) 2 %; HCT 42.2 % (34.0-46.0); HGB 13.9 gm/dL (11.4-16.0); Lymphocytes # (A) 3.6 k/uL (1.0-4.8); Lymphocytes % (A) 39 %; MCH 28.4 pg (25.0-35.0); MCHC 32.9 g/dL (31.0-37.0); MCV 86.3 fL (80.0-100.0); Monocytes # (A) 0.4 k/uL (0-1.0); Monocytes % (A) 4 %; Neutrophils # (A) 4.9 k/uL (1.3-7.7); Neutrophils % (A) 53 %; Platelet Count 286 k/uL (150-450); RBC 4.89 m/uL (3.80-5.40); RDW 13.4 % (11.5-15.5); WBC 9.2 k/uL (3.8-10.6)
[2018-12-07 15:31] LABS: ALT 15 U/L (9-52); AST 20 U/L (14-36); African American GFR (CKD) >90 (>60 ml/min/1.73 sqM); Albumin 4.8 g/dL (3.5-5.0); Alkaline Phosphatase 94 U/L (38-126); Amylase 65 U/L (30-110); Anion Gap 10 mmol/L; Blood Urea Nitrogen 8 mg/dL (7-17); Calcium 9.8 mg/dL (8.4-10.2); Carbon Dioxide 20 mmol/L (22-30); Chloride 112 mmol/L (98-107); Glucose 76 mg/dL (74-99); Lipase 415 U/L (23-300); Potassium 3.9 mmol/L (3.5-5.1); Sodium 142 mmol/L (137-145); Total Bilirubin 0.9 mg/dL (0.2-1.3); Total Protein 7.8 g/dL (6.3-8.2)
--- NOTE | 2018-12-07 16:01 | XR ---
EXAMINATION TYPE: XR KUB DATE OF EXAM: 12/07/2018 CLINICAL DATA: 43 year-old female abdominal pain, PHH COMPARISON: 12/04/2018 FINDINGS: Lung bases are clear. No evidence for free intraperitoneal air. Scattered small air-fluid levels in the colon. No dilated small bowel loops or differential air-fluid levels. Cholecystectomy clips. Phleboliths in the right side of the pelvis IMPRESSION: 1. Scattered small colonic air-fluid levels could reflect enteritis or mild generalized colonic ileus . 2.No evidence of bowel obstruction or free intraperitoneal air.
[2018-12-07 16:21] VITALS: TEMP 98.4
[2018-12-07] MEDS ORDERED: HYDROmorphone 1 MG/ML 1 ML SYRINGE IVP STA (16:57)
[2018-12-07 17:41] VITALS: BP 123/72; PULSE 77; RESP 18
== END 2018-12-07 17:42 | disposition home or self-care (01) ==
LOC: EC 14:03
DX: R10.9 Unspecified abdominal pain (principal); R31.9 Hematuria, unspecified; R93.3 Abnormal findings on diagnostic imaging of other parts of digestive tract; R11.10 Vomiting, unspecified; I10 Essential (primary) hypertension; F31.9 Bipolar disorder, unspecified; F41.9 Anxiety disorder, unspecified; F43.10 Post-traumatic stress disorder, unspecified; F17.200 Nicotine dependence, unspecified, uncomplicated; Z88.0 Allergy status to penicillin; Z88.2 Allergy status to sulfonamides; Z88.5 Allergy status to narcotic agent; Z88.8 Allergy status to other drugs, medicaments and biological substances; Z91.018 Allergy to other foods; Z91.041 Radiographic dye allergy status; Z79.899 Other long term (current) drug therapy; Z86.69 Personal history of other diseases of the nervous system and sense organs; Z87.442 Personal history of urinary calculi; Z90.49 Acquired absence of other specified parts of digestive tract; Z87.19 Personal history of other diseases of the digestive system; Z98.890 Other specified postprocedural states
CPT/HCPCS: 99284; 96374; 96375 ×3; 96361; 36415; 80053; 82150; 83690; 85025; 81001; 87086; 74018; J2270; J2405; J1885; J1170

== ENCOUNTER 2019-01-29 13:23 | Emergency (ER) | payer OTHER ==
[2019-01-29 13:33] VITALS: RESP 18
[2019-01-29] MEDS ORDERED: SODIUM CHLORIDE 0.9% 1,000 ML IV STA (13:55)
[2019-01-29] MEDS ORDERED: METOCLOPRAMIDE 5 MG/ML 2 ML VIAL IVP STA (13:56)
[2019-01-29] MEDS ORDERED: MORPHINE SULFATE 4 MG/ML SYRINGE IVP STA (13:56)
[2019-01-29 14:43] LABS: Basophils # (A) 0.1 k/uL (0-0.2); Basophils % (A) 1 %; Eosinophils # (A) 0.2 k/uL (0-0.7); Eosinophils % (A) 2 %; HCT 41.1 % (34.0-46.0); HGB 13.8 gm/dL (11.4-16.0); Lymphocytes # (A) 3.4 k/uL (1.0-4.8); Lymphocytes % (A) 34 %; MCH 29.4 pg (25.0-35.0); MCHC 33.6 g/dL (31.0-37.0); MCV 87.7 fL (80.0-100.0); Mean Platelet Volume 6.9; Monocytes # (A) 0.4 k/uL (0-1.0); Monocytes % (A) 4 %; Neutrophils # (A) 5.9 k/uL (1.3-7.7); Neutrophils % (A) 59 %; Platelet Count 284 k/uL (150-450); RBC 4.69 m/uL (3.80-5.40); RDW 14.6 % (11.5-15.5); WBC 10.1 k/uL (3.8-10.6)
[2019-01-29 14:48] LABS: ALT 22 U/L (9-52); AST 20 U/L (14-36); African American GFR (CKD) >90 (>60 ml/min/1.73 sqM); Albumin 4.2 g/dL (3.5-5.0); Alkaline Phosphatase 87 U/L (38-126); Anion Gap 11 mmol/L; Blood Urea Nitrogen 11 mg/dL (7-17); Calcium 9.4 mg/dL (8.4-10.2); Carbon Dioxide 18 mmol/L (22-30); Chloride 113 mmol/L (98-107); Glucose 133 mg/dL (74-99); Potassium 3.7 mmol/L (3.5-5.1); Sodium 142 mmol/L (137-145); Total Bilirubin 0.5 mg/dL (0.2-1.3); Total Protein 7.1 g/dL (6.3-8.2)
[2019-01-29 14:57] LABS: Appearance,Urine Clear (Clear); Bilirubin,Urine Negative (Negative); Blood,Urine Negative (Negative); Color,Urine Yellow; Glucose,Urine (UA) Negative (Negative); Ketones,Urine Negative (Negative); Leukocyte Esterase,Urine Negative (Negative); Nitrite,Urine Negative (Negative); PH, Urine 5.5 (5.0-8.0); Protein,Urine Negative (Negative); Specific Gravity,Urine 1.021 (1.001-1.035); Urobilinogen,Urine <2.0 mg/dL (<2.0)
[2019-01-29] MEDS ORDERED: MORPHINE SULFATE 2 MG/ML SYRINGE IVP ONE (15:10)
--- NOTE | 2019-01-29 15:12 | ED ---
Female Urogenital HPI - General Chief complaint: Urogenital Stated complaint: Kidney stones Time Seen by Provider: 01/29/19 13:40 Source: patient Mode of arrival: ambulatory Limitations: no limitations - History of Present Illness Initial comments: Patient is a 43-year-old female presenting to the emergency Department with complaints of burning with urination and left flank pain 2 days. Patient is well-known to the emergency department. Patient has chronic issues with kidney stones and pain control. Patient did call her PCP today and a KUB was ordered. However patient's pain was too severe and she decided to come to the ER. Patient did take Toradol earlier today, which did not help with her pain. Patient denies any fever, chills, nausea, vomiting. Patient denies being sexually active, no concerns for STD. Patient states she has an appointment with Dr. marya renee next week. Patient has no other complaints at this time. - Related Data Home Medications Medication Instructions Recorded Confirmed OLANZapine [ZyPREXA] 10 mg PO BID 08/19/17 01/29/19 oxyCODONE-APAP 10-325MG [Percocet 1 tab PO QID PRN 08/29/17 01/29/19 10-325 mg] OXcarbazepine [Trileptal] 300 mg PO BID 02/05/18 01/29/19 ARIPiprazole [Abilify] 5 mg PO DAILY 03/12/18 01/29/19 Mirtazapine [Remeron] 15 mg PO HS 03/12/18 01/29/19 PARoxetine HCL [Paxil] 40 mg PO DAILY 03/12/18 01/29/19 Topiramate [Topamax] 100 mg PO BID 03/12/18 01/29/19 PARoxetine [Paxil] 20 mg PO DAILY 06/04/18 01/29/19 Atorvastatin Calcium [Lipitor] 10 mg PO DAILY 09/30/18 01/29/19 Ketorolac [Toradol] 10 mg PO Q6HR PRN 10/17/18 01/29/19 Tamsulosin HCl [Flomax] 0.4 mg PO DAILY 12/17/18 01/29/19 Varenicline [Chantix Continuing 1 mg PO BID 01/29/19 01/29/19 Pack] Previous Rx's Medication Instructions Recorded Lisinopril [Zestril] 10 mg PO HS tab 08/02/17 SUMAtriptan SUCCINATE [Imitrex] 100 mg PO DAILY PRN tab 08/02/17 metFORMIN HCL [Glucophage] 1,000 mg PO BID-W/MEALS tab 08/02/17 Allergies Allergy/AdvReac Type Severity Reaction Status Date / Time bupropion HCl Allergy Rash/Hives Verified 01/29/19 14:08 [From Wellbutrin] divalproex sodium Allergy Unknown Verified 01/29/19 14:08 [From Depakote] fentanyl Allergy Swelling Verified 01/29/19 14:08 hydrocodone Allergy Itching Verified 01/29/19 14:08 Iodinated Contrast- Oral and Allergy Anaphylaxis Verified 01/29/19 14:08 IV Dye [Iodinated Contrast Media - IV Dye] orange juice [[place]] Allergy Rash/Hives Verified 01/29/19 14:08 Sulfa (Sulfonamide Allergy Rash/Hives Verified 01/29/19 14:08 Antibiotics) Penicillins AdvReac Nausea & Verified 01/29/19 14:08 Vomiting Review of Systems ROS Statement: Those systems with pertinent positive or pertinent negative responses have been documented in the HPI. ROS Other: All systems not noted in ROS Statement are negative. 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 History of Any Multi-Drug Resistant Organisms: None Reported Date of last positivie culture/infection: 05/14/17 MDRO Source:: ESBL URINE Past Surgical History: Bladder Surgery, Section, Cholecystectomy, Hysterectomy, Orthopedic Surgery, Tubal Ligation Additional Past Surgical History / Comment(s): R ovarian cystectomy, laparoscopic surgery for L ovary that had attached to the bowel, D&C, numerous lithotripsies, nephroscopies, cystoscopies and stents to ureters-none in place at this time, L robotic pyeloplasty with post op infection around kidney which then required a picc line/later removed (pt states was not MRSA), L rotator cuff repair, L wrist tendon surgery, colonoscopy Past Anesthesia/Blood Transfusion Reactions: Family History of Problems w/ Anesthesia Additional Past Anesthesia/Blood Transfusion Reaction / Comment(s): dad-hard time waking up due to enzyme problems in liver Past Psychological History: ADD/ADHD, Anxiety, Bipolar, Depression, PTSD Smoking Status: Current every day smoker Past Alcohol Use History: None Reported Past Drug Use History: None Reported - Past Family History Brother(s) Family Medical History: Cancer Additional Family Medical History / Comment(s): testicular Father Family Medical History: Coronary Artery Disease (CAD), CVA/TIA, Diabetes Mellitus, Renal Disease Additional Family Medical History / Comment(s): GLAUCOMA,NEUROPATHY HAD TRIPLE CABG, at 56yrs from renal disease. Mother Family Medical History: Hyperlipidemia Additional Family Medical History / Comment(s): DDD, HAD 3 vessel CABG AGE 54. General Exam - General Exam Comments Initial Comments: GENERAL: Well-appearing, well-nourished and in no acute distress. HEAD: Atraumatic, normocephalic. EYES: Pupils equal round and reactive to light, extraocular movements intact, sclera anicteric, conjunctiva are normal. ENT: TMs normal, nares patent, oropharynx clear without exudates. Moist mucous membranes. NECK: Normal range of motion, supple without lymphadenopathy or JVD. LUNGS: Breath sounds clear to auscultation bilaterally and equal. No wheezes rales or rhonchi. HEART: Regular rate and rhythm without murmurs, rubs or gallops. ABDOMEN: Tenderness over the suprapubic area. Soft, normoactive bowel sounds. No guarding, no rebound. No masses appreciated. : Deferred EXTREMITIES: Normal range of motion, no pitting or edema. No clubbing or cyanosis. NEUROLOGICAL: Cranial nerves II through XII grossly intact. Normal speech, normal gait. PSYCH: Normal mood, normal affect. SKIN: Warm, Dry, normal turgor, no rashes or lesions noted. Limitations: no limitations Course Vital Signs 01/29/19 01/29/19 13:30 15:21 Temperature 98.4 F 98.0 F Pulse Rate 80 67 Respiratory 18 18 Rate Blood Pressure 114/81 120/70 O2 Sat by Pulse 98 100 Oximetry Medical Decision Making - Medical Decision Making Patient is a 43-year-old female well known to ER with complaints of burning with urination and left flank pain. Patient vital signs are stable, afebrile. On exam patient has pain suprapubic area and left flank pain. CBC, CMP, UA are all within normal limits. Patient was given fluids and pain medication and she feels improvement. Patient will follow up with Dr. Ortega next week. Patient is stable for discharge and she is in agreement with this plan. Return parameters were discussed with the patient she verbalized understanding. Case discussed with Dr. Linda. - Lab Data Result diagrams: 01/29/19 14:23 01/29/19 14:23 Lab Results 01/29/19 01/29/19 01/29/19 Range/Units 14:23 14:23 14:37 WBC 10.1 (3.8-10.6) k/uL RBC 4.69 (3.80-5.40) m/uL Hgb 13.8 (11.4-16.0) gm/dL Hct 41.1 (34.0-46.0) % MCV 87.7 (80.0-100.0) fL MCH 29.4 (25.0-35.0) pg MCHC 33.6 (31.0-37.0) g/dL RDW 14.6 (11.5-15.5) % Plt Count 284 (150-450) k/uL Neutrophils % 59 % Lymphocytes % 34 % Monocytes % 4 % Eosinophils % 2 % Basophils % 1 % Neutrophils # 5.9 (1.3-7.7) k/uL Lymphocytes # 3.4 (1.0-4.8) k/uL Monocytes # 0.4 (0-1.0) k/uL Eosinophils # 0.2 (0-0.7) k/uL Basophils # 0.1 (0-0.2) k/uL Sodium 142 (137-145) mmol/L Potassium 3.7 (3.5-5.1) mmol/L Chloride 113 H (98-107) mmol/L Carbon Dioxide 18 L (22-30) mmol/L Anion Gap 11 mmol/L BUN 11 (7-17) mg/dL Creatinine 0.67 (0.52-1.04) mg/dL Est GFR (CKD-EPI)AfAm >90 (>60 ml/min/1.73 sqM) Est GFR (CKD-EPI)NonAf >90 (>60 ml/min/1.73 sqM) Glucose 133 H (74-99) mg/dL Calcium 9.4 (8.4-10.2) mg/dL Total Bilirubin 0.5 (0.2-1.3) mg/dL AST 20 (14-36) U/L ALT 22 (9-52) U/L Alkaline Phosphatase 87 (38-126) U/L Total Protein 7.1 (6.3-8.2) g/dL Albumin 4.2 (3.5-5.0) g/dL Urine Color Urine Appearance (Clear) Urine pH (5.0-8.0) Ur Specific W[place] (1.001-1.035) Urine Protein (Negative) Urine Glucose (UA) (Negative) Urine Ketones (Negative) Urine Blood (Negative) Urine Nitrite (Negative) Urine Bilirubin (Negative) Urine Urobilinogen (<2.0) mg/dL Ur Leukocyte Esterase (Negative) Urine HCG, Qual Not Detected (Not Detectd) 01/29/19 Range/Units 14:37 WBC (3.8-10.6) k/uL RBC (3.80-5.40) m/uL Hgb (11.4-16.0) gm/dL Hct (34.0-46.0) % MCV (80.0-100.0) fL MCH (25.0-35.0) pg MCHC (31.0-37.0) g/dL RDW (11.5-15.5) % Plt Count (150-450) k/uL Neutrophils % % Lymphocytes % % Monocytes % % Eosinophils % % Basophils % % Neutrophils # (1.3-7.7) k/uL Lymphocytes # (1.0-4.8) k/uL Monocytes # (0-1.0) k/uL Eosinophils # (0-0.7) k/uL Basophils # (0-0.2) k/uL Sodium (137-145) mmol/L Potassium (3.5-5.1) mmol/L Chloride (98-107) mmol/L Carbon Dioxide (22-30) mmol/L Anion Gap mmol/L BUN (7-17) mg/dL Creatinine (0.52-1.04) mg/dL Est GFR (CKD-EPI)AfAm (>60 ml/min/1.73 sqM) Est GFR (CKD-EPI)NonAf (>60 ml/min/1.73 sqM) Glucose (74-99) mg/dL Calcium (8.4-10.2) mg/dL Total Bilirubin (0.2-1.3) mg/dL AST (14-36) U/L ALT (9-52) U/L Alkaline Phosphatase (38-126) U/L Total Protein (6.3-8.2) g/dL Albumin (3.5-5.0) g/dL Urine Color Yellow Urine Appearance Clear (Clear) Urine pH 5.5 (5.0-8.0) Ur Specific Wann 1.021 (1.001-1.035) Urine Protein Negative (Negative) Urine Glucose (UA) Negative (Negative) Urine Ketones Negative (Negative) Urine Blood Negative (Negative) Urine Nitrite Negative (Negative) Urine Bilirubin Negative (Negative) Urine Urobilinogen <2.0 (<2.0) mg/dL Ur Leukocyte Esterase Negative (Negative) Urine HCG, Qual (Not Detectd) Disposition Clinical Impression: Abdominal pain Disposition: HOME SELF-CARE Condition: Stable Instructions (If sedation given, give patient instructions): Abdominal Pain (ED) Additional Instructions: Please return to the Emergency Department if symptoms worsen or any other concerns. Follow-up with Dr. Ortega as discussed. Is patient prescribed a controlled substance at d/c from ED?: No Referrals: Melchor Stevens MD [Primary Care Provider] - 1-2 days
[2019-01-29 15:22] VITALS: BP 120/70; PULSE 67; TEMP 98
== END 2019-01-29 15:25 | disposition home or self-care (01) ==
LOC: EC 13:23
DX: R10.30 Lower abdominal pain, unspecified (principal); R30.0 Dysuria; F31.9 Bipolar disorder, unspecified; F90.9 Attention-deficit hyperactivity disorder, unspecified type; F43.10 Post-traumatic stress disorder, unspecified; I10 Essential (primary) hypertension; F17.200 Nicotine dependence, unspecified, uncomplicated; Z79.899 Other long term (current) drug therapy; Z88.0 Allergy status to penicillin; Z88.2 Allergy status to sulfonamides; Z88.5 Allergy status to narcotic agent; Z88.8 Allergy status to other drugs, medicaments and biological substances; Z91.041 Radiographic dye allergy status; Z91.018 Allergy to other foods; Z87.442 Personal history of urinary calculi; Z90.49 Acquired absence of other specified parts of digestive tract; Z16.24 Resistance to multiple antibiotics; Z98.890 Other specified postprocedural states
CPT/HCPCS: 36415; 80053; 85025; 81003; 81025; 96374; 96375; 96376; 96361; 99284; J2270 ×2; J2765

== ENCOUNTER → 2019-01-29 | Outpatient (CLI) | payer OTHER ==
--- NOTE | 2019-01-29 13:55 | XR ---
KUB HISTORY: Renal stones, N 20.0 Frontal KUB and 2 images correlated prior KUB 12/07/[address] chest 08/11/2018 There are multiple phleboliths within the pelvis. Surgical clips are present in the right upper quadr ant. Overlying bowel gas may obscure detail. Lung bases are clear. There is a mild spinal curvature. No evident bowel obstruction or pneumoperitoneum. IMPRESSION: Nonspecific findings.
== END | disposition home or self-care (01) ==
LOC: RADXRMAIN 13:04
PROVIDERS: ATTEND Urology
DX: N20.0 Calculus of kidney (principal)
CPT/HCPCS: 74018

== ENCOUNTER 2019-02-02 15:54 | Emergency (ER) | payer OTHER ==
[2019-02-02 15:58] VITALS: TEMP 98.1
[2019-02-02] MEDS ORDERED: ONDANSETRON 4 MG/2 ML VIAL IVP STA (16:08)
[2019-02-02] MEDS ORDERED: SODIUM CHLORIDE 0.9% 1,000 ML IV ONE (16:08)
[2019-02-02] MEDS ORDERED: KETOROLAC 30 MG/ML 1 ML VIAL IVP STA (16:08)
--- NOTE | 2019-02-02 16:11 | ED ---
Female Urogenital HPI - General Chief complaint: Urogenital Stated complaint: Kidney stones Time Seen by Provider: 02/02/19 15:59 Source: patient Mode of arrival: ambulatory - History of Present Illness Initial comments: 43-year-old female well-known to the emergency department presenting with left- sided flank pain. She states that she passed 2 kidney stones this morning, however she is continuing to have pain. Patient states she always has left- sided pain in relation to her kidney stones. She was in the emergency department on the seventh, states that she attempted to get in touch with her urologist but was unable to follow-up. She denies any fevers, chills or vaginal discharge, concern for STIs, vaginal bleeding. She admits to dysuria but denies hematuria. Denies any diarrhea. States that she took Toradol, Percocet, Flomax prior to arrival. - Related Data Home Medications Medication Instructions Recorded Confirmed OLANZapine [ZyPREXA] 10 mg PO BID 08/19/17 02/02/19 oxyCODONE-APAP 10-325MG [Percocet 1 tab PO QID PRN 08/29/17 02/02/19 10-325 mg] OXcarbazepine [Trileptal] 300 mg PO BID 02/05/18 02/02/19 ARIPiprazole [Abilify] 5 mg PO DAILY 03/12/18 02/02/19 Mirtazapine [Remeron] 15 mg PO HS 03/12/18 02/02/19 PARoxetine HCL [Paxil] 40 mg PO DAILY 03/12/18 02/02/19 Topiramate [Topamax] 100 mg PO BID 03/12/18 02/02/19 PARoxetine [Paxil] 20 mg PO DAILY 06/04/18 02/02/19 Atorvastatin Calcium [Lipitor] 10 mg PO DAILY 09/30/18 02/02/19 Ketorolac [Toradol] 10 mg PO Q6HR PRN 10/17/18 02/02/19 Tamsulosin HCl [Flomax] 0.4 mg PO DAILY 12/17/18 02/02/19 Varenicline [Chantix Continuing 1 mg PO BID 01/29/19 02/02/19 Pack] Previous Rx's Medication Instructions Recorded Lisinopril [Zestril] 10 mg PO HS tab 08/02/17 SUMAtriptan SUCCINATE [Imitrex] 100 mg PO DAILY PRN tab 08/02/17 metFORMIN HCL [Glucophage] 1,000 mg PO BID-W/MEALS tab 08/02/17 Allergies Allergy/AdvReac Type Severity Reaction Status Date / Time bupropion HCl Allergy Rash/Hives Verified 02/02/19 16:26 [From Wellbutrin] divalproex sodium Allergy Unknown Verified 02/02/19 16:26 [From Depakote] fentanyl Allergy Swelling Verified 02/02/19 16:26 hydrocodone Allergy Itching Verified 02/02/19 16:26 Iodinated Contrast- Oral and Allergy Anaphylaxis Verified 02/02/19 16:26 IV Dye [Iodinated Contrast Media - IV Dye] orange juice [Tropic] Allergy Rash/Hives Verified 02/02/19 16:26 Sulfa (Sulfonamide Allergy Rash/Hives Verified 02/02/19 16:26 Antibiotics) Penicillins AdvReac Nausea & Verified 02/02/19 16:26 Vomiting Review of Systems ROS Statement: Those systems with pertinent positive or pertinent negative responses have been documented in the HPI. Review of Systems Constitutional: Denies fever, chills Eyes: Denies change in vision, Denies pain Ears, nose, mouth, throat: Denies headaches, Denies sore throat Cardiovascular: Denies chest pain. Denies palpitations Respiratory: Denies shortness of breath, Denies cough Gastrointestinal: Denies abdominal pain. Positive flank pain. Positive nausea, vomiting. Genitourinary: Denies hematuria, positive dysuria Musculoskeletal: Denies pain, Denies swelling Integumentary: Denies rash Neurological: Denies headache, focal weakness, focal numbness Psychiatric: Denies anxiety, Denies depression Hematologic/Lymphatic: Denies easy bleeding or bruising ROS Other: All systems not noted in ROS Statement are negative. 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 History of Any Multi-Drug Resistant Organisms: None Reported Date of last positivie culture/infection: 05/14/17 MDRO Source:: ESBL URINE Past Surgical History: Bladder Surgery, Section, Cholecystectomy, Hysterectomy, Orthopedic Surgery, Tubal Ligation Additional Past Surgical History / Comment(s): R ovarian cystectomy, laparosc opic surgery for L ovary that had attached to the bowel, D&C, numerous lithotripsies, nephroscopies, cystoscopies and stents to ureters-none in place at this time, L robotic pyeloplasty with post op infection around kidney which then required a picc line/later removed (pt states was not MRSA), L rotator cuff repair, L wrist tendon surgery, colonoscopy Past Anesthesia/Blood Transfusion Reactions: Family History of Problems w/ Anesthesia Additional Past Anesthesia/Blood Transfusion Reaction / Comment(s): dad-hard time waking up due to enzyme problems in liver Past Psychological History: ADD/ADHD, Anxiety, Bipolar, Depression, PTSD Smoking Status: Current every day smoker Past Alcohol Use History: None Reported Past Drug Use History: None Reported - Past Family History Brother(s) Family Medical History: Cancer Additional Family Medical History / Comment(s): testicular Father Family Medical History: Coronary Artery Disease (CAD), CVA/TIA, Diabetes Mellitus, Renal Disease Additional Family Medical History / Comment(s): GLAUCOMA,NEUROPATHY HAD TRIPLE CABG, at 56yrs from renal disease. Mother Family Medical History: Hyperlipidemia Additional Family Medical History / Comment(s): DDD, HAD 3 vessel CABG AGE 54. General Exam - General Exam Comments Initial Comments: General: Awake, alert, No acute Distress HENT: Normocephalic. Atraumatic Eyes: PERRL. EOMI. No scleral icterus. No injected conjunctiva Neck: Full ROM Chest/Lungs: Clear to auscultation bilaterally. No wheezing, rhonchi, or rales Cardiac: Regular rate, rhythm. No murmurs or rubs Abdomen/GI: Soft, nontender, nondistended. No rebound, guarding, or rigidity. No CVA tenderness. Musculoskeletal: Full ROM Skin: Warm, dry, intact Neurologic: A/Ox3, no weakness, no sensory deficit, no abnormal gait, no coordination deficit Course Vital Signs 02/02/19 02/02/19 15:56 17:51 Temperature 98.1 F Pulse Rate 107 H 82 Respiratory 18 13 Rate Blood Pressure 120/79 105/81 O2 Sat by Pulse 97 99 Oximetry Medical Decision Making - Medical Decision Making 43-year-old female presenting with flank pain. Initial exam the patient is awake, alert, no acute distress. VSS. Her laboratory workup is unremarkable. Her x-ray was negative for acute process. The patient was resting comfortably on the department. She is tolerating by mouth. At this time no further emerge nt workup indicated. Patient is stable to follow up with her urologist and her primary primary care physician for this chronic condition. No further emergent workup indicated. The patient was given return to ED instructions. They were instructed to follow up with their primary care provider. Stable for discharge at this time. - Lab Data Result diagrams: 02/02/19 16:40 02/02/19 16:45 Lab Results 02/02/19 02/02/19 02/02/19 Range/Units 16:40 16:45 16:45 WBC 10.6 (3.8-10.6) k/uL RBC 4.74 (3.80-5.40) m/uL Hgb 14.1 (11.4-16.0) gm/dL Hct 41.3 (34.0-46.0) % MCV 87.0 (80.0-100.0) fL MCH 29.7 (25.0-35.0) pg MCHC 34.2 (31.0-37.0) g/dL RDW 13.3 (11.5-15.5) % Plt Count 272 (150-450) k/uL Neutrophils % 53 % Lymphocytes % 38 % Monocytes % 4 % Eosinophils % 2 % Basophils % 1 % Neutrophils # 5.7 (1.3-7.7) k/uL Lymphocytes # 4.0 (1.0-4.8) k/uL Monocytes # 0.5 (0-1.0) k/uL Eosinophils # 0.2 (0-0.7) k/uL Basophils # 0.1 (0-0.2) k/uL Sodium 140 (137-145) mmol/L Potassium 3.7 (3.5-5.1) mmol/L Chloride 110 H (98-107) mmol/L Carbon Dioxide 20 L (22-30) mmol/L Anion Gap 10 mmol/L BUN 12 (7-17) mg/dL Creatinine 0.74 (0.52-1.04) mg/dL Est GFR (CKD-EPI)AfAm >90 (>60 ml/min/1.73 sqM) Est GFR (CKD-EPI)NonAf >90 (>60 ml/min/1.73 sqM) Glucose 111 H (74-99) mg/dL Calcium 9.9 (8.4-10.2) mg/dL HCG, Qual Not Detected Urine Color Yellow Urine Appearance Clear (Clear) Urine pH 6.0 (5.0-8.0) Ur Specific St[place] 1.012 (1.001-1.035) Urine Protein Negative (Negative) Urine Glucose (UA) Negative (Negative) Urine Ketones Negative (Negative) Urine Blood Negative (Negative) Urine Nitrite Negative (Negative) Urine Bilirubin Negative (Negative) Urine Urobilinogen <2.0 (<2.0) mg/dL Ur Leukocyte Esterase Negative (Negative) Disposition Clinical Impression: Chronic pain, Left flank pain Disposition: HOME SELF-CARE Condition: Good Instructions (If sedation given, give patient instructions): Flank Pain (ED) Is patient prescribed a controlled substance at d/c from ED?: No Referrals: Melchor Stevens MD [Primary Care Provider] - 1-2 days Malachi Ortega MD [STAFF PHYSICIAN] - 1-2 days
[2019-02-02 16:56] LABS: Appearance,Urine Clear (Clear); Bilirubin,Urine Negative (Negative); Blood,Urine Negative (Negative); Color,Urine Yellow; Glucose,Urine (UA) Negative (Negative); Ketones,Urine Negative (Negative); Leukocyte Esterase,Urine Negative (Negative); Nitrite,Urine Negative (Negative); Protein,Urine Negative (Negative); Specific Gravity,Urine 1.012 (1.001-1.035); Urobilinogen,Urine <2.0 mg/dL (<2.0)
[2019-02-02 17:08] LABS: HCG,Qualitative Serum Not Detected
[2019-02-02 17:09] LABS: African American GFR (CKD) >90 (>60 ml/min/1.73 sqM); Anion Gap 10 mmol/L; Blood Urea Nitrogen 12 mg/dL (7-17); Calcium 9.9 mg/dL (8.4-10.2); Carbon Dioxide 20 mmol/L (22-30); Chloride 110 mmol/L (98-107); Glucose 111 mg/dL (74-99); Potassium 3.7 mmol/L (3.5-5.1); Sodium 140 mmol/L (137-145)
[2019-02-02 17:20] LABS: Basophils # (A) 0.1 k/uL (0-0.2); Basophils % (A) 1 %; Eosinophils # (A) 0.2 k/uL (0-0.7); Eosinophils % (A) 2 %; HCT 41.3 % (34.0-46.0); HGB 14.1 gm/dL (11.4-16.0); Lymphocytes % (A) 38 %; MCH 29.7 pg (25.0-35.0); MCHC 34.2 g/dL (31.0-37.0); Mean Platelet Volume 6.8; Monocytes # (A) 0.5 k/uL (0-1.0); Monocytes % (A) 4 %; Neutrophils # (A) 5.7 k/uL (1.3-7.7); Neutrophils % (A) 53 %; Platelet Count 272 k/uL (150-450); RBC 4.74 m/uL (3.80-5.40); RDW 13.3 % (11.5-15.5); WBC 10.6 k/uL (3.8-10.6)
[2019-02-02 17:52] VITALS: RESP 13
[2019-02-02] MEDS ORDERED: HALOPERIDOL LACTATE 5 MG/ML 1 ML VIAL IM STA (17:53)
--- NOTE | 2019-02-02 18:19 | XR ---
EXAMINATION TYPE: XR KUB DATE OF EXAM: 02/02/2019 COMPARISON: 01/29/2019 HISTORY: Left flank pain TECHNIQUE: 2 views upright FINDINGS: There is no sign of intestinal obstruction or pneumoperitoneum. Fecal pattern is normal. Heide ng bases are clear. There are clips from cholecystectomy. There are no definite calcifications over t he kidneys and ureters. There are phleboliths in the pelvis on the right side. IMPRESSION: Nonacute abdomen. No change.
[2019-02-02 18:55] VITALS: BP 115/84; PULSE 72
== END 2019-02-02 18:55 | disposition home or self-care (01) ==
LOC: EC 15:54
DX: R10.9 Unspecified abdominal pain (principal); G89.29 Other chronic pain; R30.0 Dysuria; I10 Essential (primary) hypertension; F31.9 Bipolar disorder, unspecified; F41.9 Anxiety disorder, unspecified; F43.10 Post-traumatic stress disorder, unspecified; Z84.1 Family history of disorders of kidney and ureter; F17.200 Nicotine dependence, unspecified, uncomplicated; Z88.0 Allergy status to penicillin; Z88.2 Allergy status to sulfonamides; Z88.5 Allergy status to narcotic agent; Z88.8 Allergy status to other drugs, medicaments and biological substances; Z91.018 Allergy to other foods; Z91.041 Radiographic dye allergy status; Z79.899 Other long term (current) drug therapy; Z86.69 Personal history of other diseases of the nervous system and sense organs; Z87.440 Personal history of urinary (tract) infections; Z87.442 Personal history of urinary calculi; Z90.49 Acquired absence of other specified parts of digestive tract; Z98.890 Other specified postprocedural states
CPT/HCPCS: 99284; 96374; 96375; 96361; 96372; 36415; 80048; 85025; 81003; 84703; 74018; J1630; J2405; J1885

== ENCOUNTER 2019-02-28 13:23 | Emergency (ER) | payer OTHER ==
[2019-02-28 13:26] VITALS: RESP 18; TEMP 97.8
[2019-02-28] MEDS ORDERED: SODIUM CHLORIDE 0.9% 1,000 ML IV STA (14:09)
[2019-02-28] MEDS ORDERED: MORPHINE SULFATE 4 MG/ML SYRINGE IVP STA (14:09)
[2019-02-28] MEDS ORDERED: METOCLOPRAMIDE 5 MG/ML 2 ML VIAL IVP STA (14:09)
[2019-02-28 14:30] LABS: ALT 31 U/L (9-52); AST 26 U/L (14-36); African American GFR (CKD) >90 (>60 ml/min/1.73 sqM); Albumin 4.5 g/dL (3.5-5.0); Alkaline Phosphatase 88 U/L (38-126); Anion Gap 12 mmol/L; Blood Urea Nitrogen 11 mg/dL (7-17); Calcium 9.9 mg/dL (8.4-10.2); Carbon Dioxide 20 mmol/L (22-30); Chloride 109 mmol/L (98-107); Glucose 124 mg/dL (74-99); Potassium 3.9 mmol/L (3.5-5.1); Sodium 141 mmol/L (137-145); Total Bilirubin 0.4 mg/dL (0.2-1.3); Total Protein 7.4 g/dL (6.3-8.2)
[2019-02-28 14:35] LABS: Basophils # (A) 0.2 k/uL (0-0.2); Basophils % (A) 1 %; Eosinophils # (A) 0.3 k/uL (0-0.7); Eosinophils % (A) 2 %; HCT 40.7 % (34.0-46.0); HGB 13.8 gm/dL (11.4-16.0); Lymphocytes # (A) 4.7 k/uL (1.0-4.8); Lymphocytes % (A) 35 %; MCH 28.8 pg (25.0-35.0); MCV 84.8 fL (80.0-100.0); Mean Platelet Volume 6.8; Monocytes # (A) 0.7 k/uL (0-1.0); Monocytes % (A) 5 %; Neutrophils # (A) 7.4 k/uL (1.3-7.7); Neutrophils % (A) 55 %; Platelet Count 283 k/uL (150-450); RBC 4.79 m/uL (3.80-5.40); RDW 13.2 % (11.5-15.5); WBC 13.3 k/uL (3.8-10.6)
[2019-02-28 14:40] LABS: Appearance,Urine Clear (Clear); Bilirubin,Urine Negative (Negative); Blood,Urine Large (Negative); Color,Urine Light Red; Glucose,Urine (UA) Negative (Negative); Ketones,Urine Negative (Negative); Leukocyte Esterase,Urine Small (Negative); Mucus,Urine Rare /hpf; Nitrite,Urine Negative (Negative); Protein,Urine Trace (Negative); RBC,Urine >182 /hpf (0-5); Specific Gravity,Urine 1.013 (1.001-1.035); Squamous Epithelial Cell,Urine 2 /hpf (0-4); Urobilinogen,Urine <2.0 mg/dL (<2.0)
--- NOTE | 2019-02-28 14:48 | ED ---
Female Urogenital HPI - General Chief complaint: Urogenital Stated complaint: Kidney stones Time Seen by Provider: 02/28/19 13:32 Source: patient Mode of arrival: ambulatory Limitations: no limitations - History of Present Illness Initial comments: Patient is a 43-year-old female that is well known to the emergency Department with complaints of left-sided flank pain secondary to kidney stones. Patient states pain started yesterday and has progressed. Patient states he recently has passed 2 small stones. Patient states she is still waiting to get in to Dr. Ortega's office. Patient states she has prescriptions at home for Flomax, Toradol, Zofran, Percocets. Patient states these are not helping. Patient states her PCP told her to come into the ER for pain control. Patient admits to mild nausea. Patient denies any fever, chills, vomiting, diarrhea, burning with urination, frequency urination. Patient has no other complaints at this time. Upon arrival to ER, vital signs are stable, afebrile. - Related Data Home Medications Medication Instructions Recorded Confirmed OLANZapine [ZyPREXA] 10 mg PO BID 08/19/17 02/02/19 oxyCODONE-APAP 10-325MG [Percocet 1 tab PO QID PRN 08/29/17 02/02/19 10-325 mg] OXcarbazepine [Trileptal] 300 mg PO BID 02/05/18 02/02/19 ARIPiprazole [Abilify] 5 mg PO DAILY 03/12/18 02/02/19 Mirtazapine [Remeron] 15 mg PO HS 03/12/18 02/02/19 PARoxetine HCL [Paxil] 40 mg PO DAILY 03/12/18 02/02/19 Topiramate [Topamax] 100 mg PO BID 03/12/18 02/02/19 PARoxetine [Paxil] 20 mg PO DAILY 06/04/18 02/02/19 Atorvastatin Calcium [Lipitor] 10 mg PO DAILY 09/30/18 02/02/19 Ketorolac [Toradol] 10 mg PO Q6HR PRN 10/17/18 02/02/19 Tamsulosin HCl [Flomax] 0.4 mg PO DAILY 12/17/18 02/02/19 Varenicline [Chantix Continuing 1 mg PO BID 01/29/19 02/02/19 Pack] Previous Rx's Medication Instructions Recorded Lisinopril [Zestril] 10 mg PO HS tab 08/02/17 SUMAtriptan SUCCINATE [Imitrex] 100 mg PO DAILY PRN tab 08/02/17 metFORMIN HCL [Glucophage] 1,000 mg PO BID-W/MEALS tab 08/02/17 Allergies Allergy/AdvReac Type Severity Reaction Status Date / Time bupropion HCl Allergy Rash/Hives Verified 02/28/19 13:27 [From Wellbutrin] divalproex sodium Allergy Unknown Verified 02/28/19 13:27 [From Depakote] fentanyl Allergy Swelling Verified 02/28/19 13:27 hydrocodone Allergy Itching Verified 02/28/19 13:27 Iodinated Contrast- Oral and Allergy Anaphylaxis Verified 02/28/19 13:27 IV Dye [Iodinated Contrast Media - IV Dye] orange juice [Ona] Allergy Rash/Hives Verified 02/28/19 13:27 Sulfa (Sulfonamide Allergy Rash/Hives Verified 02/28/19 13:27 Antibiotics) Penicillins AdvReac Nausea & Verified 02/28/19 13:27 Vomiting Review of Systems ROS Statement: Those systems with pertinent positive or pertinent negative responses have been documented in the HPI. ROS Other: All systems not noted in ROS Statement are negative. 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 History of Any Multi-Drug Resistant Organisms: None Reported Date of last positivie culture/infection: 05/14/17 MDRO Source:: ESBL URINE Past Surgical History: Bladder Surgery, Section, Cholecystectomy, Hysterectomy, Orthopedic Surgery, Tubal Ligation Additional Past Surgical History / Comment(s): R ovarian cystectomy, lapa roscopic surgery for L ovary that had attached to the bowel, D&C, numerous lithotripsies, nephroscopies, cystoscopies and stents to ureters-none in place at this time, L robotic pyeloplasty with post op infection around kidney which then required a picc line/later removed (pt states was not MRSA), L rotator cuff repair, L wrist tendon surgery, colonoscopy Past Anesthesia/Blood Transfusion Reactions: Family History of Problems w/ Anesthesia Additional Past Anesthesia/Blood Transfusion Reaction / Comment(s): dad-hard time waking up due to enzyme problems in liver Past Psychological History: ADD/ADHD, Anxiety, Bipolar, Depression, PTSD Smoking Status: Current every day smoker Past Alcohol Use History: None Reported Past Drug Use History: None Reported - Past Family History Brother(s) Family Medical History: Cancer Additional Family Medical History / Comment(s): testicular Father Family Medical History: Coronary Artery Disease (CAD), CVA/TIA, Diabetes Mellitus, Renal Disease Additional Family Medical History / Comment(s): GLAUCOMA,NEUROPATHY HAD TRIPLE CABG, at 56yrs from renal disease. Mother Family Medical History: Hyperlipidemia Additional Family Medical History / Comment(s): DDD, HAD 3 vessel CABG AGE 54. General Exam - General Exam Comments Initial Comments: GENERAL: Well-appearing, well-nourished and in no acute distress. HEAD: Atraumatic, normocephalic. EYES: Pupils equal round and reactive to light, extraocular movements intact, sclera anicteric, conjunctiva are normal. ENT: TMs normal, nares patent, oropharynx clear without exudates. Moist mucous membranes. NECK: Normal range of motion, supple without lymphadenopathy or JVD. LUNGS: Breath sounds clear to auscultation bilaterally and equal. No wheezes rales or rhonchi. HEART: Regular rate and rhythm without murmurs, rubs or gallops. ABDOMEN: Left-sided tenderness as well as left flank pain. Soft, normoactive bowel sounds. No rebound. No masses appreciated. : Deferred EXTREMITIES: Normal range of motion, no pitting or edema. No clubbing or cyanosis. NEUROLOGICAL: Cranial nerves II through XII grossly intact. Normal speech, normal gait. PSYCH: Normal mood, normal affect. SKIN: Warm, Dry, normal turgor, no rashes or lesions noted. Limitations: no limitations Course Vital Signs 02/28/19 02/28/19 13:24 16:28 Temperature 97.8 F Pulse Rate 100 87 Respiratory 18 18 Rate Blood Pressure 113/77 103/71 O2 Sat by Pulse 97 98 Oximetry Medical Decision Making - Medical Decision Making Patient is a 43-year-old female presenting with left flank pain secondary to kidney stones. Patient is a frequent of the ER. Patient states the pain has been increasing over last couple days and her at-home medications are not helping. Patient states she recently passed a few small stones. Patient states she is still waiting to get into urology. On exam patient has tenderness left flank area as well as left sided abdominal pain. CBC, CMP are within normal limits. UA shows large amount of blood, no signs of infection. KUB shows a nonspecific abdomen. She was given pain medication with mild improvement in her symptoms. As discussed with patient that she needs to follow up with urology to further manage her symptoms. Patient is agreement with this plan of care. Patient stable for discharge at this time. Return parameters were discussed with the patient she verbalized understanding. Patient is to continue with Flomax that she has at home as well as Toradol for pain and Zofran for nausea. Patient has always medications at home. Case discussed with Dr. Roche. - Lab Data Result diagrams: 02/28/19 13:41 02/28/19 13:41 Lab Results 02/28/19 02/28/19 02/28/19 Range/Units 13:41 13:41 13:41 WBC 13.3 H (3.8-10.6) k/uL RBC 4.79 (3.80-5.40) m/uL Hgb 13.8 (11.4-16.0) gm/dL Hct 40.7 (34.0-46.0) % MCV 84.8 (80.0-100.0) fL MCH 28.8 (25.0-35.0) pg MCHC 34.0 (31.0-37.0) g/dL RDW 13.2 (11.5-15.5) % Plt Count 283 (150-450) k/uL Neutrophils % 55 % Lymphocytes % 35 % Monocytes % 5 % Eosinophils % 2 % Basophils % 1 % Neutrophils # 7.4 (1.3-7.7) k/uL Lymphocytes # 4.7 (1.0-4.8) k/uL Monocytes # 0.7 (0-1.0) k/uL Eosinophils # 0.3 (0-0.7) k/uL Basophils # 0.2 (0-0.2) k/uL Sodium 141 (137-145) mmol/L Potassium 3.9 (3.5-5.1) mmol/L Chloride 109 H (98-107) mmol/L Carbon Dioxide 20 L (22-30) mmol/L Anion Gap 12 mmol/L BUN 11 (7-17) mg/dL Creatinine 0.84 (0.52-1.04) mg/dL Est GFR (CKD-EPI)AfAm >90 (>60 ml/min/1.73 sqM) Est GFR (CKD-EPI)NonAf 86 (>60 ml/min/1.73 sqM) Glucose 124 H (74-99) mg/dL Calcium 9.9 (8.4-10.2) mg/dL Total Bilirubin 0.4 (0.2-1.3) mg/dL AST 26 (14-36) U/L ALT 31 (9-52) U/L Alkaline Phosphatase 88 (38-126) U/L Total Protein 7.4 (6.3-8.2) g/dL Albumin 4.5 (3.5-5.0) g/dL Urine Color Light Red Urine Appearance Clear (Clear) Urine pH 5.0 (5.0-8.0) Ur Specific Tucker 1.013 (1.001-1.035) Urine Protein Trace H (Negative) Urine Glucose (UA) Negative (Negative) Urine Ketones Negative (Negative) Urine Blood Large H (Negative) Urine Nitrite Negative (Negative) Urine Bilirubin Negative (Negative) Urine Urobilinogen <2.0 (<2.0) mg/dL Ur Leukocyte Esterase Small H (Negative) Urine RBC >182 H (0-5) /hpf Ur Squamous Epith Cells 2 (0-4) /hpf Urine Mucus Rare H (None) /hpf Disposition Clinical Impression: Left flank pain, chronic Disposition: HOME SELF-CARE Condition: Stable Instructions (If sedation given, give patient instructions): Kidney Stones (ED) Additional Instructions: Please return to the Emergency Department if symptoms worsen or any other concerns. Follow-up with urology. Is patient prescribed a controlled substance at d/c from ED?: No Referrals: Melchor Stevens MD [Primary Care Provider] - 1-2 days Milton Gayle MD [STAFF PHYSICIAN] - 1-2 days
--- NOTE | 2019-02-28 15:41 | XR ---
EXAMINATION TYPE: XR KUB DATE OF EXAM: 02/28/2019 COMPARISON: 02/02/2019 HISTORY: Left flank pain TECHNIQUE: One view abdominal series FINDINGS: The osseous structures are intact. The bowel gas pattern is nonspecific. Lung bases are clear. Surg ical clips in the right upper quadrant. Calcifications in the pelvis are likely vascular. IMPRESSION: 1. Nonspecific abdomen.
[2019-02-28] MEDS ORDERED: MORPHINE SULFATE 2 MG/ML SYRINGE IVP ONE (16:18)
[2019-02-28 16:28] VITALS: BP 103/71; PULSE 87
== END 2019-02-28 16:41 | disposition home or self-care (01) ==
LOC: EC 13:23
DX: R10.9 Unspecified abdominal pain (principal); N20.0 Calculus of kidney; F17.200 Nicotine dependence, unspecified, uncomplicated; F31.9 Bipolar disorder, unspecified; F43.10 Post-traumatic stress disorder, unspecified; F90.9 Attention-deficit hyperactivity disorder, unspecified type; E11.9 Type 2 diabetes mellitus without complications; I10 Essential (primary) hypertension; Z79.899 Other long term (current) drug therapy; Z88.0 Allergy status to penicillin; Z88.2 Allergy status to sulfonamides; Z88.5 Allergy status to narcotic agent; Z88.8 Allergy status to other drugs, medicaments and biological substances; Z91.041 Radiographic dye allergy status; Z91.018 Allergy to other foods; Z90.49 Acquired absence of other specified parts of digestive tract; Z86.14 Personal history of Methicillin resistant Staphylococcus aureus infection
CPT/HCPCS: 36415; 80053; 85025; 81001; 74018; 99284; 96374; 96375; 96376; 96361; J2270 ×2; J2765

== ENCOUNTER 2019-03-03 10:08 | Emergency (ER) | payer OTHER ==
[2019-03-03 10:19] VITALS: BP 117/77; PULSE 76; RESP 16; TEMP 98
[2019-03-03] MEDS ORDERED: ONDANSETRON 4 MG/2 ML VIAL IVP STA (10:22)
[2019-03-03] MEDS ORDERED: SODIUM CHLORIDE 0.9% 1,000 ML IV STA ×2 (10:22)
[2019-03-03] MEDS ORDERED: KETOROLAC 30 MG/ML 1 ML VIAL IVP STA (10:22)
[2019-03-03] MEDS ORDERED: HYDROmorphone 1 MG/ML 1 ML SYRINGE IVP STA ×2 (10:22→12:20)
--- NOTE | 2019-03-03 10:26 | ED ---
Female Urogenital HPI - General Chief complaint: Urogenital Stated complaint: kidney stones Time Seen by Provider: 03/03/19 10:15 Source: patient, RN notes reviewed, old records reviewed Mode of arrival: ambulatory Limitations: no limitations - History of Present Illness Initial comments: Patient is a 43-year-old female presents emergency Department chief complaint of left flank pain. Patient reports that she was in the emergency department 3 days ago for similar complaints. She has troubled with chronic kidney stones and flank pain for many years and is well-known to the emergency department. Patient ports she's been taking at-home Percocet, Toradol and Flomax. Patient states she's also had a low-grade temperature yesterday. Patient states that she was she passed her stone that brought her into the emergency department 3 days ago but now is having recurrent pain. Patient states that she's had no history of chest pain shortness of breath. She reports some nausea and vomiting. - Related Data Home Medications Medication Instructions Recorded Confirmed OLANZapine [ZyPREXA] 10 mg PO BID 08/19/17 03/03/19 oxyCODONE-APAP 10-325MG [Percocet 1 tab PO QID PRN 08/29/17 03/03/19 10-325 mg] OXcarbazepine [Trileptal] 300 mg PO BID 02/05/18 03/03/19 ARIPiprazole [Abilify] 5 mg PO DAILY 03/12/18 03/03/19 Mirtazapine [Remeron] 15 mg PO HS 03/12/18 03/03/19 PARoxetine HCL [Paxil] 40 mg PO DAILY 03/12/18 03/03/19 Topiramate [Topamax] 100 mg PO BID 03/12/18 03/03/19 PARoxetine [Paxil] 20 mg PO DAILY 06/04/18 03/03/19 Atorvastatin Calcium [Lipitor] 10 mg PO DAILY 09/30/18 03/03/19 Ketorolac [Toradol] 10 mg PO Q6HR PRN 10/17/18 03/03/19 Tamsulosin HCl [Flomax] 0.4 mg PO DAILY 12/17/18 03/03/19 Varenicline [Chantix Continuing 1 mg PO BID 01/29/19 03/03/19 Pack] Previous Rx's Medication Instructions Recorded Lisinopril [Zestril] 10 mg PO HS tab 08/02/17 SUMAtriptan SUCCINATE [Imitrex] 100 mg PO DAILY PRN tab 08/02/17 metFORMIN HCL [Glucophage] 1,000 mg PO BID-W/MEALS tab 08/02/17 Allergies Allergy/AdvReac Type Severity Reaction Status Date / Time bupropion HCl Allergy Rash/Hives Verified 03/03/19 10:24 [From Wellbutrin] divalproex sodium Allergy Unknown Verified 03/03/19 10:24 [From Depakote] fentanyl Allergy Swelling Verified 03/03/19 10:24 hydrocodone Allergy Itching Verified 03/03/19 10:24 Iodinated Contrast- Oral and Allergy Anaphylaxis Verified 03/03/19 10:24 IV Dye [Iodinated Contrast Media - IV Dye] orange juice [[place]] Allergy Rash/Hives Verified 03/03/19 10:24 Sulfa (Sulfonamide Allergy Rash/Hives Verified 03/03/19 10:24 Antibiotics) Penicillins AdvReac Nausea & Verified 03/03/19 10:24 Vomiting Review of Systems ROS Statement: Those systems with pertinent positive or pertinent negative responses have been documented in the HPI. ROS Other: All systems not noted in ROS Statement are negative. 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 History of Any Multi-Drug Resistant Organisms: None Reported Date of last positivie culture/infection: 05/14/17 MDRO Source:: ESBL URINE Past Surgical History: Bladder Surgery, Section, Cholecystectomy, Hysterectomy, Orthopedic Surgery, Tubal Ligation Additional Past Surgical History / Comment(s): R ovarian cystectomy, laparoscopic surgery for L ovary that had attached to the bowel, D&C, numerous lithotripsies, nephroscopies, cystoscopies and stents to ureters-none in place at this time, L robotic pyeloplasty with post op infection around kidney which then required a picc line/later removed (pt states was not MRSA), L rotator cuff repair, L wrist tendon surgery, colonoscopy Past Anesthesia/Blood Transfusion Reactions: Family History of Problems w/ Anesthesia Additional Past Anesthesia/Blood Transfusion Reaction / Comment(s): dad-hard time waking up due to enzyme problems in liver Past Psychological History: ADD/ADHD, Anxiety, Bipolar, Depression, PTSD Smoking Status: Current every day smoker Past Alcohol Use History: None Reported Past Drug Use History: None Reported - Past Family History Brother(s) Family Medical History: Cancer Additional Family Medical History / Comment(s): testicular Father Family Medical History: Coronary Artery Disease (CAD), CVA/TIA, Diabetes Mellitus, Renal Disease Additional Family Medical History / Comment(s): GLAUCOMA,NEUROPATHY HAD TRIPLE CABG, at 56yrs from renal disease. Mother Family Medical History: Hyperlipidemia Additional Family Medical History / Comment(s): DDD, HAD 3 vessel CABG AGE 54. General Exam - General Exam Comments Initial Comments: Pleasant 43-year-old female.Pain distress. Limitations: no limitations Head exam: Present: atraumatic, normocephalic, normal inspection Eye exam: Present: normal appearance, PERRL, EOMI. Absent: scleral icterus, conjunctival injection, periorbital swelling ENT exam: Present: normal exam, mucous membranes moist Neck exam: Present: normal inspection. Absent: tenderness, meningismus, lymphadenopathy Respiratory exam: Present: normal lung sounds bilaterally. Absent: respiratory distress, wheezes, rales, rhonchi, stridor Cardiovascular Exam: Present: regular rate, normal rhythm, normal heart sounds. Absent: systolic murmur, diastolic murmur, rubs, gallop, clicks GI/Abdominal exam: Present: soft, normal bowel sounds. Absent: distended, tenderness, guarding, rebound, rigid Extremities exam: Present: normal inspection, full ROM, normal capillary refill. Absent: tenderness, pedal edema, joint swelling, calf tenderness Back exam: Present: normal inspection Neurological exam: Present: alert, oriented X3, CN II-XII intact Psychiatric exam: Present: normal affect, normal mood Skin exam: Present: warm, dry, intact, normal color. Absent: rash Course Vital Signs 03/03/19 10:15 Temperature 98.0 F Pulse Rate 76 Respiratory 16 Rate Blood Pressure 117/77 O2 Sat by Pulse 98 Oximetry Medical Decision Making - Medical Decision Making 43-year-old female presents emergency department today for evaluation of left flank pain. History of chronic kidney stones. This time her urinalysis does show hematuria and no signs of white blood cells or infection. Blood work was reviewed and unremarkable. Ultrasound of the renals was completed. There is no sign of a left ureteral jet. Patient hada hydronephrosis hydroureter stones identified. KUB showed a small 6 mm stone within the left renal pole. I discussed at this time Patient is resting passing another small. Was Given IV Fluids and Pain Management. Discussed the [facility] and Continue Her at Home Pain Medication. Patient Is Agreeable Treatment Plan Will Comply. Return Parameters Were Discussed. - Lab Data Result diagrams: 03/03/19 10:30 03/03/19 10:30 Lab Results 03/03/19 03/03/19 03/03/19 Range/Units 10:16 10:30 10:30 WBC 9.2 (3.8-10.6) k/uL RBC 4.53 (3.80-5.40) m/uL Hgb 13.7 (11.4-16.0) gm/dL Hct 38.9 (34.0-46.0) % MCV 85.9 (80.0-100.0) fL MCH 30.1 (25.0-35.0) pg MCHC 35.1 (31.0-37.0) g/dL RDW 15.8 H (11.5-15.5) % Plt Count 265 (150-450) k/uL Neutrophils % 52 % Lymphocytes % 39 % Monocytes % 4 % Eosinophils % 3 % Basophils % 1 % Neutrophils # 4.8 (1.3-7.7) k/uL Lymphocytes # 3.6 (1.0-4.8) k/uL Monocytes # 0.4 (0-1.0) k/uL Eosinophils # 0.2 (0-0.7) k/uL Basophils # 0.1 (0-0.2) k/uL PT (9.0-12.0) sec INR (<1.2) APTT (22.0-30.0) sec Sodium 140 (137-145) mmol/L Potassium 3.9 (3.5-5.1) mmol/L Chloride 110 H (98-107) mmol/L Carbon Dioxide 18 L (22-30) mmol/L Anion Gap 12 mmol/L BUN 9 (7-17) mg/dL Creatinine 0.87 (0.52-1.04) mg/dL Est GFR (CKD-EPI)AfAm >90 (>60 ml/min/1.73 sqM) Est GFR (CKD-EPI)NonAf 83 (>60 ml/min/1.73 sqM) Glucose 133 H (74-99) mg/dL Calcium 9.7 (8.4-10.2) mg/dL Total Bilirubin 0.6 (0.2-1.3) mg/dL AST 22 (14-36) U/L ALT 30 (9-52) U/L Alkaline Phosphatase 90 (38-126) U/L Total Protein 7.2 (6.3-8.2) g/dL Albumin 4.3 (3.5-5.0) g/dL Amylase 42 (30-110) U/L Lipase 120 (23-300) U/L Urine Color Light Red Urine Appearance Clear (Clear) Urine pH 5.5 (5.0-8.0) Ur Specific [place] 1.014 (1.001-1.035) Urine Protein Trace H (Negative) Urine Glucose (UA) Negative (Negative) Urine Ketones Negative (Negative) Urine Blood Large H (Negative) Urine Nitrite Negative (Negative) Urine Bilirubin Negative (Negative) Urine Urobilinogen <2.0 (<2.0) mg/dL Ur Leukocyte Esterase Negative (Negative) Urine RBC >182 H (0-5) /hpf Ur Squamous Epith Cells 3 (0-4) /hpf 03/03/19 Range/Units 10:30 WBC (3.8-10.6) k/uL RBC (3.80-5.40) m/uL Hgb (11.4-16.0) gm/dL Hct (34.0-46.0) % MCV (80.0-100.0) fL MCH (25.0-35.0) pg MCHC (31.0-37.0) g/dL RDW (11.5-15.5) % Plt Count (150-450) k/uL Neutrophils % % Lymphocytes % % Monocytes % % Eosinophils % % Basophils % % Neutrophils # (1.3-7.7) k/uL Lymphocytes # (1.0-4.8) k/uL Monocytes # (0-1.0) k/uL Eosinophils # (0-0.7) k/uL Basophils # (0-0.2) k/uL PT 9.5 (9.0-12.0) sec INR 0.9 (<1.2) APTT 24.8 (22.0-30.0) sec Sodium (137-145) mmol/L Potassium (3.5-5.1) mmol/L Chloride (98-107) mmol/L Carbon Dioxide (22-30) mmol/L Anion Gap mmol/L BUN (7-17) mg/dL Creatinine (0.52-1.04) mg/dL Est GFR (CKD-EPI)AfAm (>60 ml/min/1.73 sqM) Est GFR (CKD-EPI)NonAf (>60 ml/min/1.73 sqM) Glucose (74-99) mg/dL Calcium (8.4-10.2) mg/dL Total Bilirubin (0.2-1.3) mg/dL AST (14-36) U/L ALT (9-52) U/L Alkaline Phosphatase (38-126) U/L Total Protein (6.3-8.2) g/dL Albumin (3.5-5.0) g/dL Amylase (30-110) U/L Lipase (23-300) U/L Urine Color Urine Appearance (Clear) Urine pH (5.0-8.0) Ur Specific [place] (1.001-1.035) Urine Protein (Negative) Urine Glucose (UA) (Negative) Urine Ketones (Negative) Urine Blood (Negative) Urine Nitrite (Negative) Urine Bilirubin (Negative) Urine Urobilinogen (<2.0) mg/dL Ur Leukocyte Esterase (Negative) Urine RBC (0-5) /hpf Ur Squamous Epith Cells (0-4) /hpf - Radiology Data Radiology results: report reviewed No evidence of hydronephrosis. No definite nephrolithiasis. Left kidney shows [id number] focus noted in superior pole may be calcified vessel soares. Bladder within normal limits. Only the right ureteral jet was seen at the treatment observation. Nonspecific abdomen. Exclude a 6 Mm Left Lower Pole Renal Calculus. Disposition Clinical Impression: Flank pain Disposition: HOME SELF-CARE Condition: Good Instructions (If sedation given, give patient instructions): Flank Pain (ED) Additional Instructions: Patient has a take at home pain medication. Follow-up with your outpatient urologist. Return to the emergency department if any alarming signs or symptoms occur. Is patient prescribed a controlled substance at d/c from ED?: No Referrals: Melchor Stevens MD [Primary Care Provider] - 1-2 days Time of Disposition: 12:21
--- NOTE | 2019-03-03 10:58 | XR ---
EXAMINATION TYPE: XR KUB DATE OF EXAM: 03/03/2019 COMPARISON: 02/28/2019 HISTORY: Left flank pain TECHNIQUE: One view abdominal series FINDINGS: The osseous structures are intact. The bowel gas pattern is nonspecific. Lung bases are clear. Surg ical clips in the right upper quadrant. Vague calcification seen overlying the lower pole the left ki dney measuring 6 mm. Calcifications the pelvis are likely vascular. IMPRESSION: 1. Nonspecific abdomen. Cannot exclude a 6 mm left lower pole renal calculus.
[2019-03-03 11:00] LABS: Basophils # (A) 0.1 k/uL (0-0.2); Basophils % (A) 1 %; Eosinophils # (A) 0.2 k/uL (0-0.7); Eosinophils % (A) 3 %; HCT 38.9 % (34.0-46.0); HGB 13.7 gm/dL (11.4-16.0); Lymphocytes # (A) 3.6 k/uL (1.0-4.8); Lymphocytes % (A) 39 %; MCH 30.1 pg (25.0-35.0); MCHC 35.1 g/dL (31.0-37.0); MCV 85.9 fL (80.0-100.0); Mean Platelet Volume 7.1; Monocytes # (A) 0.4 k/uL (0-1.0); Monocytes % (A) 4 %; Neutrophils # (A) 4.8 k/uL (1.3-7.7); Neutrophils % (A) 52 %; Platelet Count 265 k/uL (150-450); RBC 4.53 m/uL (3.80-5.40); RDW 15.8 % (11.5-15.5); WBC 9.2 k/uL (3.8-10.6)
[2019-03-03 11:05] LABS: Appearance,Urine Clear (Clear); Bilirubin,Urine Negative (Negative); Blood,Urine Large (Negative); Color,Urine Light Red; Glucose,Urine (UA) Negative (Negative); Ketones,Urine Negative (Negative); Leukocyte Esterase,Urine Negative (Negative); Nitrite,Urine Negative (Negative); PH, Urine 5.5 (5.0-8.0); Protein,Urine Trace (Negative); RBC,Urine >182 /hpf (0-5); Specific Gravity,Urine 1.014 (1.001-1.035); Squamous Epithelial Cell,Urine 3 /hpf (0-4); Urobilinogen,Urine <2.0 mg/dL (<2.0)
[2019-03-03 11:11] LABS: INR 0.9 (<1.2); Partial Thromboplastin Time 24.8 sec (22.0-30.0); Prothrombin Time 9.5 sec (9.0-12.0)
[2019-03-03 11:23] LABS: ALT 30 U/L (9-52); AST 22 U/L (14-36); African American GFR (CKD) >90 (>60 ml/min/1.73 sqM); Albumin 4.3 g/dL (3.5-5.0); Alkaline Phosphatase 90 U/L (38-126); Amylase 42 U/L (30-110); Anion Gap 12 mmol/L; Blood Urea Nitrogen 9 mg/dL (7-17); Calcium 9.7 mg/dL (8.4-10.2); Carbon Dioxide 18 mmol/L (22-30); Chloride 110 mmol/L (98-107); Glucose 133 mg/dL (74-99); Potassium 3.9 mmol/L (3.5-5.1); Sodium 140 mmol/L (137-145); Total Bilirubin 0.6 mg/dL (0.2-1.3); Total Protein 7.2 g/dL (6.3-8.2)
--- NOTE | 2019-03-03 11:42 | US ---
EXAMINATION TYPE: US renals and bladder DATE OF EXAM: 03/03/2019 COMPARISON: US, CT CLINICAL HISTORY: Pain. Left flank pain; patient stated passed kidney stone last night, hematuria EXAM MEASUREMENTS: Right Kidney: 10.9 x 4.7 x 4.4 cm Left Kidney: 11.0x 4.7 x 4.4 cm Post Void Residual Volume: not assessed on EC patient Right Kidney: lower pole linear hyperechoic focus is noted = 0.5 x 0.4 x 0.1cm Left Kidney: hyperechoic parallel focus noted superior pole may be calcified vessel soares Bladder: wnl Bilateral Jets seen: no, only right ureteral jet was seen in 3 minute observation There is no evidence for hydronephrosis at this point in time. The urinary bladder is anechoic. IMPRESSION: No diagnostic evidence of hydronephrosis. No definite nephrolithiasis.
== END 2019-03-03 12:46 | disposition home or self-care (01) ==
LOC: EC 10:08
DX: R10.9 Unspecified abdominal pain (principal); N20.0 Calculus of kidney; R11.2 Nausea with vomiting, unspecified; I10 Essential (primary) hypertension; F31.9 Bipolar disorder, unspecified; F41.9 Anxiety disorder, unspecified; F43.10 Post-traumatic stress disorder, unspecified; F17.200 Nicotine dependence, unspecified, uncomplicated; Z88.0 Allergy status to penicillin; Z88.2 Allergy status to sulfonamides; Z88.5 Allergy status to narcotic agent; Z88.8 Allergy status to other drugs, medicaments and biological substances; Z91.018 Allergy to other foods; Z91.041 Radiographic dye allergy status; Z79.899 Other long term (current) drug therapy; Z86.69 Personal history of other diseases of the nervous system and sense organs; Z87.19 Personal history of other diseases of the digestive system; Z90.49 Acquired absence of other specified parts of digestive tract; Z98.890 Other specified postprocedural states; Z84.1 Family history of disorders of kidney and ureter
CPT/HCPCS: 36415; 80053; 82150; 83690; 85025; 85610; 85730; 81001; 74018; 76770; 99285; 96374; 96376; 96375 ×2; 96361 ×2; J2405; J1885; J1170

== ENCOUNTER 2019-03-04 19:40 | Emergency (ER) | payer OTHER ==
[2019-03-04 19:44] VITALS: TEMP 97.8
[2019-03-04] MEDS ORDERED: ONDANSETRON 4 MG/2 ML VIAL IVP STA (20:20)
[2019-03-04] MEDS ORDERED: HYDROmorphone 0.5 MG/0.5 ML SYRINGE IVP STA (20:20)
[2019-03-04] MEDS ORDERED: SODIUM CHLORIDE 0.9% 1,000 ML IV STA (20:20)
[2019-03-04 20:35] LABS: Basophils # (A) 0.1 k/uL (0-0.2); Basophils % (A) 1 %; Eosinophils # (A) 0.3 k/uL (0-0.7); Eosinophils % (A) 3 %; HCT 39.1 % (34.0-46.0); HGB 13.5 gm/dL (11.4-16.0); Lymphocytes # (A) 4.6 k/uL (1.0-4.8); Lymphocytes % (A) 36 %; MCH 29.6 pg (25.0-35.0); MCHC 34.6 g/dL (31.0-37.0); MCV 85.4 fL (80.0-100.0); Mean Platelet Volume 7.1; Monocytes # (A) 0.6 k/uL (0-1.0); Monocytes % (A) 4 %; Neutrophils # (A) 6.9 k/uL (1.3-7.7); Neutrophils % (A) 55 %; Platelet Count 268 k/uL (150-450); RBC 4.58 m/uL (3.80-5.40); RDW 13.5 % (11.5-15.5); WBC 12.7 k/uL (3.8-10.6)
[2019-03-04 20:44] LABS: ALT 20 U/L (9-52); AST 21 U/L (14-36); African American GFR (CKD) >90 (>60 ml/min/1.73 sqM); Albumin 4.1 g/dL (3.5-5.0); Alkaline Phosphatase 86 U/L (38-126); Amylase 60 U/L (30-110); Anion Gap 11 mmol/L; Blood Urea Nitrogen 8 mg/dL (7-17); Calcium 9.3 mg/dL (8.4-10.2); Carbon Dioxide 20 mmol/L (22-30); Chloride 111 mmol/L (98-107); Glucose 104 mg/dL (74-99); Potassium 3.9 mmol/L (3.5-5.1); Sodium 142 mmol/L (137-145); Total Bilirubin 0.3 mg/dL (0.2-1.3); Total Protein 6.9 g/dL (6.3-8.2)
[2019-03-04 20:49] LABS: Appearance,Urine Cloudy (Clear); Bilirubin,Urine Negative (Negative); Blood,Urine Large (Negative); Color,Urine Light Red; Glucose,Urine (UA) Negative (Negative); Ketones,Urine Negative (Negative); Leukocyte Esterase,Urine Trace (Negative); Nitrite,Urine Negative (Negative); PH, Urine 7.5 (5.0-8.0); Protein,Urine 1+ (Negative); RBC,Urine >182 /hpf (0-5); Specific Gravity,Urine 1.009 (1.001-1.035); Squamous Epithelial Cell,Urine 4 /hpf (0-4); Urobilinogen,Urine <2.0 mg/dL (<2.0); WBC,Urine 105 /hpf (0-5)
--- NOTE | 2019-03-04 20:52 | ED ---
Abdominal Pain HPI - General Chief Complaint: Abdominal Pain Stated Complaint: Kidney stones Time Seen by Provider: 03/04/19 19:49 Source: patient Mode of arrival: ambulatory Limitations: no limitations - History of Present Illness Initial Comments: Patient is a 43-year-old female with history of kidney stones is presenting to emergency Department with a chief complaint of abdominal pain. Patient reports she wasn't emergency department twice within the last week for the same reason. Patient reports she is still waiting to get an appointment with Dr. Hill who she spoke with him on the phone and he suggested that if the pain does not resolve she come to the emergency department for reevaluation. Patient reports left flank pain that radiates to the left lower quadrant to the groin region. Patient reports recently passed his stones but has not developed a similar pain. Patient reports the pain is exacerbated when pressure is applied on the left side of the abdomen.. Patient also reports pain in the left flank region after she stops urinating. Patient denies increased urgency, frequency or dysuria. Patient does report hematuria denies hematochezia or melena. Patient also reports nausea with multiple episodes of vomiting due to the pain. Patient denies fevers night sweats or chills. Patient denies vaginal discharge or foul smell - Related Data Home Medications Medication Instructions Recorded Confirmed OLANZapine [ZyPREXA] 10 mg PO BID 08/19/17 03/04/19 oxyCODONE-APAP 10-325MG [Percocet 1 tab PO QID PRN 08/29/17 03/04/19 10-325 mg] OXcarbazepine [Trileptal] 300 mg PO BID 02/05/18 03/04/19 ARIPiprazole [Abilify] 5 mg PO DAILY 03/12/18 03/04/19 Mirtazapine [Remeron] 15 mg PO HS 03/12/18 03/04/19 PARoxetine HCL [Paxil] 40 mg PO DAILY 03/12/18 03/04/19 Topiramate [Topamax] 100 mg PO BID 03/12/18 03/04/19 PARoxetine [Paxil] 20 mg PO DAILY 06/04/18 03/04/19 Atorvastatin Calcium [Lipitor] 10 mg PO DAILY 09/30/18 03/04/19 Ketorolac [Toradol] 10 mg PO Q6HR PRN 10/17/18 03/04/19 Tamsulosin HCl [Flomax] 0.4 mg PO DAILY 12/17/18 03/04/19 Varenicline [Chantix Continuing 1 mg PO BID 01/29/19 03/04/19 Pack] Previous Rx's Medication Instructions Recorded Lisinopril [Zestril] 10 mg PO HS tab 08/02/17 SUMAtriptan SUCCINATE [Imitrex] 100 mg PO DAILY PRN tab 08/02/17 metFORMIN HCL [Glucophage] 1,000 mg PO BID-W/MEALS tab 08/02/17 Ondansetron Odt [Zofran Odt] 4 mg PO Q8HR PRN #12 tab 03/03/19 Allergies Allergy/AdvReac Type Severity Reaction Status Date / Time bupropion HCl Allergy Rash/Hives Verified 03/04/19 19:58 [From Wellbutrin] divalproex sodium Allergy Unknown Verified 03/04/19 19:58 [From Depakote] fentanyl Allergy Swelling Verified 03/04/19 19:58 hydrocodone Allergy Itching Verified 03/04/19 19:58 Iodinated Contrast- Oral and Allergy Anaphylaxis Verified 03/04/19 19:58 IV Dye [Iodinated Contrast Media - IV Dye] orange juice [[place]] Allergy Rash/Hives Verified 03/04/19 19:58 Sulfa (Sulfonamide Allergy Rash/Hives Verified 03/04/19 19:58 Antibiotics) Penicillins AdvReac Nausea & Verified 03/04/19 19:58 Vomiting Review of Systems ROS Statement: Those systems with pertinent positive or pertinent negative responses have been documented in the HPI. ROS Other: All systems not noted in ROS Statement are negative. 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 History of Any Multi-Drug Resistant Organisms: None Reported Date of last positivie culture/infection: 05/14/17 MDRO Source:: ESBL URINE Past Surgical History: Bladder Surgery, Section, Cholecystectomy, Hysterectomy, Orthopedic Surgery, Tubal Ligation Additional Past Surgical History / Comment(s): R ovarian cystectomy, laparoscopic surgery for L ovary that had attached to the bowel, D&C, numerous lithotripsies, nephroscopies, cystoscopies and stents to ureters-none in place at this time, L robotic pyeloplasty with post op infection around kidney which then required a picc line/later removed (pt states was not MRSA), L rotator cuff repair, L wrist tendon surgery, colonoscopy Past Anesthesia/Blood Transfusion Reactions: Family History of Problems w/ Anesthesia Additional Past Anesthesia/Blood Transfusion Reaction / Comment(s): dad-hard time waking up due to enzyme problems in liver Past Psychological History: ADD/ADHD, Anxiety, Bipolar, Depression, PTSD Smoking Status: Current every day smoker Past Alcohol Use History: None Reported Past Drug Use History: None Reported - Past Family History Brother(s) Family Medical History: Cancer Additional Family Medical History / Comment(s): testicular Father Family Medical History: Coronary Artery Disease (CAD), CVA/TIA, Diabetes Mellitus, Renal Disease Additional Family Medical History / Comment(s): GLAUCOMA,NEUROPATHY HAD TRIPLE CABG, at 56yrs from renal disease. Mother Family Medical History: Hyperlipidemia Additional Family Medical History / Comment(s): DDD, HAD 3 vessel CABG AGE 54. General Exam Limitations: no limitations General appearance: alert, in no apparent distress, obese Head exam: Present: atraumatic, normocephalic, normal inspection Eye exam: Present: normal appearance, PERRL, EOMI Pupils: Present: normal accommodation ENT exam: Present: normal exam, normal oropharynx, mucous membranes moist, TM's normal bilaterally, normal external ear exam Neck exam: Present: normal inspection, full ROM Respiratory exam: Present: normal lung sounds bilaterally Cardiovascular Exam: Present: regular rate, normal rhythm, normal heart sounds GI/Abdominal exam: Present: soft, tenderness (Left lower quadrant and left flank ), normal bowel sounds. Absent: guarding, rebound, mass Extremities exam: Present: normal inspection, full ROM Back exam: Present: normal inspection, full ROM Neurological exam: Present: alert, oriented X3 Psychiatric exam: Present: normal affect, normal mood Skin exam: Present: warm, intact, normal color Course Vital Signs 03/04/19 03/04/19 19:42 22:15 Temperature 97.8 F 97.8 F Pulse Rate 108 H 73 Respiratory 20 18 Rate Blood Pressure 119/76 116/81 O2 Sat by Pulse 99 100 Oximetry Medical Decision Making - Medical Decision Making Patient is a 43-year-old female with history of kidney stones is presenting to the emergency department with a chief complaint of kidney stones. Patient reports she was here yesterday for kidney stones. Patient reports she has attempted to get a schedule an appointment with Dr. Hill but has been unable to. Patient reports she spoke with on the phone and he suggested that she come to the ED if her pain is not able to resolve. Patient currently takes oral Toradol, Percocet and Flomax. UA is indicative of hematuria. KUB is unremarkable. Patient does have symptoms that we'll classical presided kidney stone. Patient already has established kidney stones on previous imaging in the left kidney. No further imaging is warranted at this time. Analgesia given to patient. On reevaluation patient reports feeling better with the nausea completely resolved. Patient will be discharged with Zofran. Strict return parameters were thoroughly discussed patient was understanding and agreeable. Patient advised to follow-up with the pathology. Case discussed physician. - Lab Data Result diagrams: 03/04/19 20:28 03/04/19 20:28 Lab Results 03/04/19 03/04/19 03/04/19 Range/Units 20:28 20:28 20:28 WBC 12.7 H (3.8-10.6) k/uL RBC 4.58 (3.80-5.40) m/uL Hgb 13.5 (11.4-16.0) gm/dL Hct 39.1 (34.0-46.0) % MCV 85.4 (80.0-100.0) fL MCH 29.6 (25.0-35.0) pg MCHC 34.6 (31.0-37.0) g/dL RDW 13.5 (11.5-15.5) % Plt Count 268 (150-450) k/uL Neutrophils % 55 % Lymphocytes % 36 % Monocytes % 4 % Eosinophils % 3 % Basophils % 1 % Neutrophils # 6.9 (1.3-7.7) k/uL Lymphocytes # 4.6 (1.0-4.8) k/uL Monocytes # 0.6 (0-1.0) k/uL Eosinophils # 0.3 (0-0.7) k/uL Basophils # 0.1 (0-0.2) k/uL Sodium 142 (137-145) mmol/L Potassium 3.9 (3.5-5.1) mmol/L Chloride 111 H (98-107) mmol/L Carbon Dioxide 20 L (22-30) mmol/L Anion Gap 11 mmol/L BUN 8 (7-17) mg/dL Creatinine 0.73 (0.52-1.04) mg/dL Est GFR (CKD-EPI)AfAm >90 (>60 ml/min/1.73 sqM) Est GFR (CKD-EPI)NonAf >90 (>60 ml/min/1.73 sqM) Glucose 104 H (74-99) mg/dL Calcium 9.3 (8.4-10.2) mg/dL Total Bilirubin 0.3 (0.2-1.3) mg/dL AST 21 (14-36) U/L ALT 20 (9-52) U/L Alkaline Phosphatase 86 (38-126) U/L Total Protein 6.9 (6.3-8.2) g/dL Albumin 4.1 (3.5-5.0) g/dL Amylase 60 (30-110) U/L Lipase 124 (23-300) U/L Urine Color Light Red Urine Appearance Cloudy H (Clear) Urine pH 7.5 (5.0-8.0) Ur Specific [place] 1.009 (1.001-1.035) Urine Protein 1+ H (Negative) Urine Glucose (UA) Negative (Negative) Urine Ketones Negative (Negative) Urine Blood Large H (Negative) Urine Nitrite Negative (Negative) Urine Bilirubin Negative (Negative) Urine Urobilinogen <2.0 (<2.0) mg/dL Ur Leukocyte Esterase Trace H (Negative) Urine RBC >182 H (0-5) /hpf Urine WBC 105 H (0-5) /hpf Ur Squamous Epith Cells 4 (0-4) /hpf Disposition Clinical Impression: Abdominal pain Disposition: HOME SELF-CARE Condition: Stable Instructions (If sedation given, give patient instructions): Abdominal Pain (ED) Additional Instructions: Please follow up with urology. Please take prescribed medication as directed. Please return to emergency department if symptoms worsen. Is patient prescribed a controlled substance at d/c from ED?: No Referrals: Melchor Stevens MD [Primary Care Provider] - 1-2 days Time of Disposition: 22:04
--- NOTE | 2019-03-04 21:10 | XR ---
EXAMINATION TYPE: XR KUB DATE OF EXAM: 03/04/2019 8:46 PM CLINICAL HISTORY: Sided abdominal pain with nausea and vomiting and hematuria TECHNIQUE: 2 upright views COMPARISON: None. FINDINGS: Scattered gas is seen in non-distended small bowel loops. Gas and fecal material is seen in non-distended colon. There is no visceromegaly, pneumoperitoneum, or abnormal calcification apprecia coco. The lung bases are clear and the osseous structures are intact. IMPRESSION: Negative examination.
[2019-03-04] MEDS ORDERED: KETOROLAC 30 MG/ML 1 ML VIAL IVP STA (22:04)
[2019-03-04 22:30] VITALS: BP 116/81; PULSE 73; RESP 18
== END 2019-03-04 22:30 | disposition home or self-care (01) ==
LOC: EC 19:40
DX: R10.32 Left lower quadrant pain (principal); R31.9 Hematuria, unspecified; F31.9 Bipolar disorder, unspecified; F43.10 Post-traumatic stress disorder, unspecified; F17.200 Nicotine dependence, unspecified, uncomplicated; Z79.899 Other long term (current) drug therapy; Z88.5 Allergy status to narcotic agent; Z91.041 Radiographic dye allergy status; Z91.018 Allergy to other foods; Z88.2 Allergy status to sulfonamides; Z88.0 Allergy status to penicillin; Z88.8 Allergy status to other drugs, medicaments and biological substances; Z90.49 Acquired absence of other specified parts of digestive tract; Z98.890 Other specified postprocedural states; Z87.442 Personal history of urinary calculi; Z95.1 Presence of aortocoronary bypass graft
CPT/HCPCS: 99284; 96374; 96375 ×2; 96361 ×2; 36415; 80053; 82150; 83690; 85025; 81001; 74018; J2405; J1885; J1170

== ENCOUNTER 2019-03-26 00:30 | Emergency (ER) | payer OTHER ==
[2019-03-26 00:41] VITALS: RESP 18
--- NOTE | 2019-03-26 00:48 | ED ---
Abdominal Pain HPI - General Chief Complaint: Abdominal Pain Stated Complaint: Kidney Stones Time Seen by Provider: 03/26/19 00:46 Source: patient Mode of arrival: ambulatory Limitations: physical limitation - History of Present Illness Initial Comments: This is a 43-year-old female with chronic kidney stones who presents to the ER today for evaluation of left-sided flank pain. Patient reports she's been dealing with for about a week she saw her primary care today she was given a shot of Toradol with minimal improvement. She is arty on Flomax. She follows with Dr. malhotra her urology. Patient states that today the pain was out of control she's not having any fevers chills nausea or vomiting. - Related Data Home Medications Medication Instructions Recorded Confirmed OLANZapine [ZyPREXA] 10 mg PO BID 08/19/17 03/04/19 oxyCODONE-APAP 10-325MG [Percocet 1 tab PO QID PRN 08/29/17 03/04/19 10-325 mg] OXcarbazepine [Trileptal] 300 mg PO BID 02/05/18 03/04/19 ARIPiprazole [Abilify] 5 mg PO DAILY 03/12/18 03/04/19 Mirtazapine [Remeron] 15 mg PO HS 03/12/18 03/04/19 PARoxetine HCL [Paxil] 40 mg PO DAILY 03/12/18 03/04/19 Topiramate [Topamax] 100 mg PO BID 03/12/18 03/04/19 PARoxetine [Paxil] 20 mg PO DAILY 06/04/18 03/04/19 Atorvastatin Calcium [Lipitor] 10 mg PO DAILY 09/30/18 03/04/19 Ketorolac [Toradol] 10 mg PO Q6HR PRN 10/17/18 03/04/19 Tamsulosin HCl [Flomax] 0.4 mg PO DAILY 12/17/18 03/04/19 Varenicline [Chantix Continuing 1 mg PO BID 01/29/19 03/04/19 Pack] Previous Rx's Medication Instructions Recorded Lisinopril [Zestril] 10 mg PO HS tab 08/02/17 SUMAtriptan SUCCINATE [Imitrex] 100 mg PO DAILY PRN tab 08/02/17 metFORMIN HCL [Glucophage] 1,000 mg PO BID-W/MEALS tab 08/02/17 Ondansetron Odt [Zofran Odt] 4 mg PO Q8HR PRN #12 tab 03/03/19 Tamsulosin [Flomax] 0.4 mg PO DAILY #7 cap 03/26/19 Allergies Allergy/AdvReac Type Severity Reaction Status Date / Time bupropion HCl Allergy Rash/Hives Verified 03/26/19 00:42 [From Wellbutrin] divalproex sodium Allergy Unknown Verified 03/26/19 00:42 [From Depakote] fentanyl Allergy Swelling Verified 03/26/19 00:42 Iodinated Contrast Media Allergy Anaphylaxis Verified 03/26/19 00:42 [Iodinated Contrast Media - IV Dye] orange juice [[place]] Allergy Rash/Hives Verified 03/26/19 00:42 Sulfa (Sulfonamide Allergy Rash/Hives Verified 03/26/19 00:42 Antibiotics) Penicillins AdvReac Nausea & Verified 03/26/19 00:42 Vomiting Review of Systems ROS Statement: Those systems with pertinent positive or pertinent negative responses have been documented in the HPI. ROS Other: All systems not noted in ROS Statement are negative. 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 History of Any Multi-Drug Resistant Organisms: None Reported Date of last positivie culture/infection: 05/14/17 MDRO Source:: ESBL URINE Past Surgical History: Bladder Surgery, Section, Cholecystectomy, Hysterectomy, Orthopedic Surgery, Tubal Ligation Additional Past Surgical History / Comment(s): R ovarian cystectomy, laparoscopic surgery for L ovary that had attached to the bowel, D&C, numerous lithotripsies, nephroscopies, cystoscopies and stents to ureters-none in place at this time, L robotic pyeloplasty with post op infection around kidney which then required a picc line/later removed (pt states was not MRSA), L rotator cuff repair, L wrist tendon surgery, colonoscopy Past Anesthesia/Blood Transfusion Reactions: Family History of Problems w/ Ane sthesia Additional Past Anesthesia/Blood Transfusion Reaction / Comment(s): dad-hard time waking up due to enzyme problems in liver Past Psychological History: ADD/ADHD, Anxiety, Bipolar, Depression, PTSD Smoking Status: Current every day smoker Past Alcohol Use History: None Reported Past Drug Use History: None Reported - Past Family History Brother(s) Family Medical History: Cancer Additional Family Medical History / Comment(s): testicular Father Family Medical History: Coronary Artery Disease (CAD), CVA/TIA, Diabetes Mellitus, Renal Disease Additional Family Medical History / Comment(s): GLAUCOMA,NEUROPATHY HAD TRIPLE CABG, at 56yrs from renal disease. Mother Family Medical History: Hyperlipidemia Additional Family Medical History / Comment(s): DDD, HAD 3 vessel CABG AGE 54. General Exam - General Exam Comments Initial Comments: Physical Exam GENERAL: Patient is well-developed and well-nourished. Patient is nontoxic and well- hydrated and is in no distress. HENT: Normocephalic, Atraumatic. EYES: PERRL, EOMI PULMONARY: Unlabored respirations. No audible rales rhonchi or wheezing was noted. CARDIOVASCULAR: There is a regular rate and rhythm without any murmurs gallops or rubs. ABDOMEN: Soft and nontender with normal bowel sounds. Non-Peritoneal SKIN: Skin is clear with no lesions or rashes and otherwise unremarkable. : Deferred NEUROLOGIC: Patient is alert and oriented x3. Moving all extremities spontaneously MUSCULOSKELETAL: Normal extremities with adequate strength and full range of motion. No lower extremity swelling or edema. No calf tenderness. PSYCHIATRIC: Normal psychiatric evaluation. Limitations: physical limitation Course Vital Signs 03/26/19 03/26/19 03/26/19 00:37 02:31 04:00 Temperature 98 F Pulse Rate 85 72 75 Respiratory 18 18 18 Rate Blood Pressure 114/72 99/61 98/60 O2 Sat by Pulse 98 98 98 Oximetry 03/26/19 06:21 Temperature 98.6 F Pulse Rate 69 Respiratory 18 Rate Blood Pressure 98/63 O2 Sat by Pulse 98 Oximetry Medical Decision Making - Medical Decision Making She was seen and evaluated history is obtained from the patient excellent history and physical exam are concerning for acute chronic flank and pelvic pain. Urinalysis with no signs of infection there is gross hematuria, labs are relatively unremarkable. KUB unremarkable. Patient had multiple CTs in the past I do not feel she would benefit from computed tomography scan at this time. Pain was well managed with a single dose of morphine patient was able sleep for 4 hours, upon waking and reevaluation patient reports she is feeling better would like one more shot of pain meds prior to discharge. Pain meds were given. - Lab Data Result diagrams: 03/26/19 00:50 03/26/19 00:50 Lab Results 03/26/19 03/26/19 03/26/19 Range/Units 00:50 00:50 00:50 WBC 12.2 H (3.8-10.6) k/uL RBC 4.69 (3.80-5.40) m/uL Hgb 14.4 (11.4-16.0) gm/dL Hct 39.5 (34.0-46.0) % MCV 84.3 (80.0-100.0) fL MCH 30.8 (25.0-35.0) pg MCHC 36.5 (31.0-37.0) g/dL RDW 13.0 (11.5-15.5) % Plt Count 323 (150-450) k/uL Neutrophils % 45 % Lymphocytes % 44 % Monocytes % 6 % Eosinophils % 2 % Basophils % 1 % Neutrophils # 5.5 (1.3-7.7) k/uL Lymphocytes # 5.4 H (1.0-4.8) k/uL Monocytes # 0.8 (0-1.0) k/uL Eosinophils # 0.3 (0-0.7) k/uL Basophils # 0.1 (0-0.2) k/uL Manual Slide Review Performed Large Platelets Present Polychromasia Present Anisocytosis (manual) Present Sodium (137-145) mmol/L Potassium (3.5-5.1) mmol/L Chloride (98-107) mmol/L Carbon Dioxide (22-30) mmol/L Anion Gap mmol/L BUN (7-17) mg/dL Creatinine (0.52-1.04) mg/dL Est GFR (CKD-EPI)AfAm (>60 ml/min/1.73 sqM) Est GFR (CKD-EPI)NonAf (>60 ml/min/1.73 sqM) Glucose (74-99) mg/dL Calcium (8.4-10.2) mg/dL Total Bilirubin (0.2-1.3) mg/dL AST (14-36) U/L ALT (9-52) U/L Alkaline Phosphatase (38-126) U/L Total Protein (6.3-8.2) g/dL Albumin (3.5-5.0) g/dL Urine Color Light Red Urine Appearance Clear (Clear) Urine pH 5.5 (5.0-8.0) Ur Specific [place] 1.010 (1.001-1.035) Urine Protein Trace H (Negative) Urine Glucose (UA) Negative (Negative) Urine Ketones Negative (Negative) Urine Blood Large H (Negative) Urine Nitrite Negative (Negative) Urine Bilirubin Negative (Negative) Urine Urobilinogen <2.0 (<2.0) mg/dL Ur Leukocyte Esterase Negative (Negative) Urine RBC >182 H (0-5) /hpf Urine WBC 5 (0-5) /hpf Ur Squamous Epith Cells 5 H (0-4) /hpf Urine Bacteria Rare H (None) /hpf Urine HCG, Qual Not Detected (Not Detectd) 03/26/19 Range/Units 00:50 WBC (3.8-10.6) k/uL RBC (3.80-5.40) m/uL Hgb (11.4-16.0) gm/dL Hct (34.0-46.0) % MCV (80.0-100.0) fL MCH (25.0-35.0) pg MCHC (31.0-37.0) g/dL RDW (11.5-15.5) % Plt Count (150-450) k/uL Neutrophils % % Lymphocytes % % Monocytes % % Eosinophils % % Basophils % % Neutrophils # (1.3-7.7) k/uL Lymphocytes # (1.0-4.8) k/uL Monocytes # (0-1.0) k/uL Eosinophils # (0-0.7) k/uL Basophils # (0-0.2) k/uL Manual Slide Review Large Platelets Polychromasia Anisocytosis (manual) Sodium 139 (137-145) mmol/L Potassium 4.1 (3.5-5.1) mmol/L Chloride 106 (98-107) mmol/L Carbon Dioxide 21 L (22-30) mmol/L Anion Gap 12 mmol/L BUN 15 (7-17) mg/dL Creatinine 0.84 (0.52-1.04) mg/dL Est GFR (CKD-EPI)AfAm >90 (>60 ml/min/1.73 sqM) Est GFR (CKD-EPI)NonAf 86 (>60 ml/min/1.73 sqM) Glucose 104 H (74-99) mg/dL Calcium 9.8 (8.4-10.2) mg/dL Total Bilirubin 0.4 (0.2-1.3) mg/dL AST 20 (14-36) U/L ALT 27 (9-52) U/L Alkaline Phosphatase 78 (38-126) U/L Total Protein 7.5 (6.3-8.2) g/dL Albumin 4.4 (3.5-5.0) g/dL Urine Color Urine Appearance (Clear) Urine pH (5.0-8.0) Ur Specific [place] (1.001-1.035) Urine Protein (Negative) Urine Glucose (UA) (Negative) Urine Ketones (Negative) Urine Blood (Negative) Urine Nitrite (Negative) Urine Bilirubin (Negative) Urine Urobilinogen (<2.0) mg/dL Ur Leukocyte Esterase (Negative) Urine RBC (0-5) /hpf Urine WBC (0-5) /hpf Ur Squamous Epith Cells (0-4) /hpf Urine Bacteria (None) /hpf Urine HCG, Qual (Not Detectd) Disposition Clinical Impression: Flank pain Disposition: HOME SELF-CARE Condition: Stable Additional Instructions: Follow up with your primary doctor within 2-3 days. Follow up with a Urologist this week (we will give you a list of urologists, but make sure they accept your insurance). ?Please call as soon as possible for an appointment. You will be given a prescription for Flomax (0.4mg daily) please product picker the medication as soon as possible and take as directed. Use Motrin (also called Ibuprofen or Advil) 400-800 mg every 6 hours as needed for pain. Take this with food, if you have any stomach discomfort while taking Motrin, you can use TUMS to help. Drink plenty of fluids, avoid caffeine & alcohol. Please continue taking your home medications as directed. Do not use alcohol when taking any medication (especially antibiotics, tylenol or other pain medication) unless you check with the doctor or pharmacist. Any worsening pain, fever, chills, difficulty urinating, or any other concerns, please see your doctor immediately or return to Emergency Department right away. Prescriptions: Tamsulosin [Flomax] 0.4 mg PO DAILY #7 cap Is patient prescribed a controlled substance at d/c from ED?: No Referrals: Melchor Stevens MD [Primary Care Provider] - 1-2 days
[2019-03-26 01:34] LABS: Appearance,Urine Clear (Clear); Bacteria,Urine Rare /hpf; Bilirubin,Urine Negative (Negative); Blood,Urine Large (Negative); Color,Urine Light Red; Glucose,Urine (UA) Negative (Negative); Ketones,Urine Negative (Negative); Leukocyte Esterase,Urine Negative (Negative); Nitrite,Urine Negative (Negative); PH, Urine 5.5 (5.0-8.0); Protein,Urine Trace (Negative); RBC,Urine >182 /hpf (0-5); Squamous Epithelial Cell,Urine 5 /hpf (0-4); Urobilinogen,Urine <2.0 mg/dL (<2.0)
[2019-03-26] MEDS ORDERED: MORPHINE SULFATE 4 MG/ML SYRINGE IVP STA ×2 (01:53→06:30)
[2019-03-26] MEDS ORDERED: SODIUM CHLORIDE 0.9% 1,000 ML IV ONE (01:53)
[2019-03-26] MEDS ORDERED: ONDANSETRON 4 MG/2 ML VIAL IVP STA (01:53)
[2019-03-26 02:12] LABS: ALT 27 U/L (9-52); AST 20 U/L (14-36); African American GFR (CKD) >90 (>60 ml/min/1.73 sqM); Albumin 4.4 g/dL (3.5-5.0); Alkaline Phosphatase 78 U/L (38-126); Anion Gap 12 mmol/L; Blood Urea Nitrogen 15 mg/dL (7-17); Calcium 9.8 mg/dL (8.4-10.2); Carbon Dioxide 21 mmol/L (22-30); Chloride 106 mmol/L (98-107); Glucose 104 mg/dL (74-99); Potassium 4.1 mmol/L (3.5-5.1); Sodium 139 mmol/L (137-145); Total Bilirubin 0.4 mg/dL (0.2-1.3); Total Protein 7.5 g/dL (6.3-8.2)
[2019-03-26 02:15] LABS: Basophils # (A) 0.1 k/uL (0-0.2); Basophils % (A) 1 %; Eosinophils # (A) 0.3 k/uL (0-0.7); Eosinophils % (A) 2 %; HCT 39.5 % (34.0-46.0); HGB 14.4 gm/dL (11.4-16.0); Lymphocytes # (A) 5.4 k/uL (1.0-4.8); Lymphocytes % (A) 44 %; MCH 30.8 pg (25.0-35.0); MCHC 36.5 g/dL (31.0-37.0); MCV 84.3 fL (80.0-100.0); Monocytes # (A) 0.8 k/uL (0-1.0); Monocytes % (A) 6 %; Neutrophils # (A) 5.5 k/uL (1.3-7.7); Neutrophils % (A) 45 %; Platelet Count 323 k/uL (150-450); RBC 4.69 m/uL (3.80-5.40); WBC 12.2 k/uL (3.8-10.6)
--- NOTE | 2019-03-26 02:17 | XR ---
EXAMINATION TYPE: XR KUB DATE OF EXAM: 03/26/2019 COMPARISON: 03/04/2019 HISTORY: Blood in the urine TECHNIQUE: 2 views upright FINDINGS: There is no sign of intestinal obstruction or pneumoperitoneum. Fecal pattern is normal. Th ere are clips from cholecystectomy. Lung bases are clear. There are no pathologic calcifications over the kidneys. IMPRESSION: Nonacute abdomen. No change.
[2019-03-26 02:58] LABS: Large Platelets Present
[2019-03-26 02:59] LABS: Anisocytosis (M) Present
[2019-03-26 03:00] LABS: Polychromasia Present
[2019-03-26 06:29] VITALS: BP 98/63; PULSE 69; TEMP 98.6
== END 2019-03-26 07:13 | disposition home or self-care (01) ==
LOC: EC 00:30
DX: R10.9 Unspecified abdominal pain (principal); R31.0 Gross hematuria; F41.9 Anxiety disorder, unspecified; F31.9 Bipolar disorder, unspecified; F43.10 Post-traumatic stress disorder, unspecified; I10 Essential (primary) hypertension; F17.200 Nicotine dependence, unspecified, uncomplicated; Z79.899 Other long term (current) drug therapy; Z88.0 Allergy status to penicillin; Z88.2 Allergy status to sulfonamides; Z88.5 Allergy status to narcotic agent; Z88.8 Allergy status to other drugs, medicaments and biological substances; Z91.041 Radiographic dye allergy status; Z91.018 Allergy to other foods; Z90.710 Acquired absence of both cervix and uterus
CPT/HCPCS: 36415; 80053; 85025; 81001; 81025; 74018; 99284; 96374; 96375; 96376; 96361 ×5; J2270; J2405

== ENCOUNTER 2019-05-13 17:43 | Emergency (ER) | payer OTHER ==
[2019-05-13 17:58] VITALS: RESP 18
[2019-05-13] MEDS ORDERED: SODIUM CHLORIDE 0.9% 1,000 ML IV STA (18:23)
[2019-05-13] MEDS ORDERED: ONDANSETRON 4 MG/2 ML VIAL IVP STA (18:23)
[2019-05-13] MEDS ORDERED: MORPHINE SULFATE 4 MG/ML SYRINGE IV STA (18:23)
[2019-05-13 18:44] LABS: Appearance,Urine Clear (Clear); Bilirubin,Urine Negative (Negative); Blood,Urine Large (Negative); Color,Urine Light Red; Glucose,Urine (UA) Negative (Negative); Ketones,Urine Negative (Negative); Leukocyte Esterase,Urine Small (Negative); Nitrite,Urine Negative (Negative); PH, Urine 6.5 (5.0-8.0); Protein,Urine Trace (Negative); RBC,Urine >182 /hpf (0-5); Squamous Epithelial Cell,Urine 2 /hpf (0-4); Urobilinogen,Urine <2.0 mg/dL (<2.0)
[2019-05-13 18:58] LABS: Basophils # (A) 0.1 k/uL (0-0.2); Basophils % (A) 1 %; Eosinophils # (A) 0.6 k/uL (0-0.7); Eosinophils % (A) 5 %; HCT 41.7 % (34.0-46.0); HGB 14.7 gm/dL (11.4-16.0); Lymphocytes # (A) 4.5 k/uL (1.0-4.8); Lymphocytes % (A) 33 %; MCH 30.9 pg (25.0-35.0); MCHC 35.3 g/dL (31.0-37.0); MCV 87.5 fL (80.0-100.0); Mean Platelet Volume 5.8; Monocytes # (A) 0.6 k/uL (0-1.0); Monocytes % (A) 5 %; Neutrophils # (A) 7.5 k/uL (1.3-7.7); Neutrophils % (A) 56 %; Platelet Count 318 k/uL (150-450); RBC 4.76 m/uL (3.80-5.40); RDW 12.6 % (11.5-15.5); WBC 13.5 k/uL (3.8-10.6)
--- NOTE | 2019-05-13 19:03 | ED ---
Abdominal Pain HPI - General Chief Complaint: Abdominal Pain Stated Complaint: kidney stone Time Seen by Provider: 05/13/19 17:59 Source: patient Mode of arrival: ambulatory Limitations: no limitations - History of Present Illness Initial Comments: Patient is a 43-year-old female presenting to emergency Department with complaints of left flank pain that started last night. Patient has long history of kidney stones and frequently comes to the ER for this. Patient admits to some mild nausea. No fever, chills, vomiting, diarrhea. Patient denies any urinary complaints at this time. Patient states she did go to her PCP today who gave her an injection of Toradol and stated if her pain does not subside to go back to the ER. Patient was given a prescription for oral Toradol as well as Flomax. She also has Percocet at home. Patient states she also has an appointment with her urologist in 3 days. Patient states the pain worsened today so she decided to come into the ER. Patient has no other complaints at this time. Upon arrival to the ER, vital signs are stable. - Related Data Home Medications Medication Instructions Recorded Confirmed OLANZapine [ZyPREXA] 10 mg PO BID 08/19/17 03/04/19 oxyCODONE-APAP 10-325MG [Percocet 1 tab PO QID PRN 08/29/17 03/04/19 10-325 mg] OXcarbazepine [Trileptal] 300 mg PO BID 02/05/18 03/04/19 ARIPiprazole [Abilify] 5 mg PO DAILY 03/12/18 03/04/19 Mirtazapine [Remeron] 15 mg PO HS 03/12/18 03/04/19 PARoxetine HCL [Paxil] 40 mg PO DAILY 03/12/18 03/04/19 Topiramate [Topamax] 100 mg PO BID 03/12/18 03/04/19 PARoxetine [Paxil] 20 mg PO DAILY 06/04/18 03/04/19 Atorvastatin Calcium [Lipitor] 10 mg PO DAILY 09/30/18 03/04/19 Ketorolac [Toradol] 10 mg PO Q6HR PRN 10/17/18 03/04/19 Tamsulosin HCl [Flomax] 0.4 mg PO DAILY 12/17/18 03/04/19 Varenicline [Chantix Continuing 1 mg PO BID 01/29/19 03/04/19 Pack] Previous Rx's Medication Instructions Recorded Lisinopril [Zestril] 10 mg PO HS tab 08/02/17 SUMAtriptan SUCCINATE [Imitrex] 100 mg PO DAILY PRN tab 08/02/17 metFORMIN HCL [Glucophage] 1,000 mg PO BID-W/MEALS tab 08/02/17 Ondansetron Odt [Zofran Odt] 4 mg PO Q8HR PRN #12 tab 03/03/19 Tamsulosin [Flomax] 0.4 mg PO DAILY #7 cap 03/26/19 Allergies Allergy/AdvReac Type Severity Reaction Status Date / Time bupropion HCl Allergy Rash/Hives Verified 05/13/19 17:58 [From Wellbutrin] divalproex sodium Allergy Unknown Verified 05/13/19 17:58 [From Depakote] fentanyl Allergy Swelling Verified 05/13/19 17:58 Iodinated Contrast Media Allergy Anaphylaxis Verified 05/13/19 17:58 [Iodinated Contrast Media - IV Dye] orange juice [[place]] Allergy Rash/Hives Verified 05/13/19 17:58 Sulfa (Sulfonamide Allergy Rash/Hives Verified 05/13/19 17:58 Antibiotics) Penicillins AdvReac Nausea & Verified 05/13/19 17:58 Vomiting Review of Systems ROS Statement: Those systems with pertinent positive or pertinent negative responses have been documented in the HPI. ROS Other: All systems not noted in ROS Statement are negative. 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 History of Any Multi-Drug Resistant Organisms: None Reported Date of last positivie culture/infection: 05/14/17 MDRO Source:: ESBL URINE Past Surgical History: Bladder Surgery, Section, Cholecystectomy, Hysterectomy, Orthopedic Surgery, Tubal Ligation Additional Past Surgical History / Comment(s): R ovarian cystectomy, laparoscopic surgery for L ovary that had attached to the bowel, D&C, numerous lithotripsies, nephroscopies, cystoscopies and stents to ureters-none in place at this time, L robotic pyeloplasty with post op infection around kidney which then required a picc line/later removed (pt states was not MRSA), L rotator cuff repair, L wrist tendon surgery, colonoscopy Past Anesthesia/Blood Transfusion Reactions: Family History of Problems w/ Anesthesia Additional Past Anesthesia/Blood Transfusion Reaction / Comment(s): dad-hard time waking up due to enzyme problems in liver Past Psychological History: ADD/ADHD, Anxiety, Bipolar, Depression, PTSD Smoking Status: Current every day smoker Past Alcohol Use History: None Reported Past Drug Use History: None Reported - Past Family History Brother(s) Family Medical History: Cancer Additional Family Medical History / Comment(s): testicular Father Family Medical History: Coronary Artery Disease (CAD), CVA/TIA, Diabetes Mellitus, Renal Disease Additional Family Medical History / Comment(s): GLAUCOMA,NEUROPATHY HAD TRIPLE CABG, at 56yrs from renal disease. Mother Family Medical History: Hyperlipidemia Additional Family Medical History / Comment(s): DDD, HAD 3 vessel CABG AGE 54. General Exam - General Exam Comments Initial Comments: GENERAL: Well-appearing, well-nourished and in no acute distress. HEAD: Atraumatic, normocephalic. EYES: Pupils equal round and reactive to light, extraocular movements intact, sclera anicteric, conjunctiva are normal. ENT: Nares patent, oropharynx clear without exudates. Moist mucous membranes. NECK: Normal range of motion, supple without lymphadenopathy or JVD. LUNGS: Breath sounds clear to auscultation bilaterally and equal. No wheezes rales or rhonchi. HEART: Regular rate and rhythm without murmurs, rubs or gallops. ABDOMEN: Mild left flank and left-sided abdominal pain. No other abdominal pain no suprapubic pain. Soft, normoactive bowel sounds. No guarding, no rebound. No masses appreciated. : Deferred EXTREMITIES: Normal range of motion, no pitting or edema. No clubbing or cyanosis. NEUROLOGICAL: Normal speech, normal gait. PSYCH: Normal mood, normal affect. SKIN: Warm, Dry, normal turgor, no rashes or lesions noted. Limitations: no limitations Course Vital Signs 05/13/19 05/13/19 17:56 18:55 Temperature 97.7 F Pulse Rate 107 H Respiratory 18 18 Rate Blood Pressure 139/81 O2 Sat by Pulse 100 Oximetry Medical Decision Making - Medical Decision Making Patient is a 43-year-old female presenting with left flank pain since yesterday. Patient is well-known to the ER for her history of kidney stones. Vital signs are stable upon arrival. UA has large amount of blood, consistent with a renal stone. Rest of lab work is unremarkable. KUB shows no acute changes from previous KUB. No further imaging is warranted at this time. Patient has an appointment with her urologist in 3 days. Patient was given fluids, pain meds, and antinausea medications. She reports improvement in her symptoms and is stable for discharge. She is in agreement with this plan of care. Patient will follow up with her urologist as indicated. Patient will continue with Flomax as well as Toradol as needed. Return parameters were discussed with the patient she verbalized understanding. Case discussed with Dr. Linda. - Lab Data Result diagrams: 05/13/19 18:37 05/13/19 18:37 Lab Results 05/13/19 05/13/19 05/13/19 Range/Units 18:10 18:37 18:37 WBC 13.5 H (3.8-10.6) k/uL RBC 4.76 (3.80-5.40) m/uL Hgb 14.7 (11.4-16.0) gm/dL Hct 41.7 (34.0-46.0) % MCV 87.5 (80.0-100.0) fL MCH 30.9 (25.0-35.0) pg MCHC 35.3 (31.0-37.0) g/dL RDW 12.6 (11.5-15.5) % Plt Count 318 (150-450) k/uL Neutrophils % 56 % Lymphocytes % 33 % Monocytes % 5 % Eosinophils % 5 % Basophils % 1 % Neutrophils # 7.5 (1.3-7.7) k/uL Lymphocytes # 4.5 (1.0-4.8) k/uL Monocytes # 0.6 (0-1.0) k/uL Eosinophils # 0.6 (0-0.7) k/uL Basophils # 0.1 (0-0.2) k/uL Sodium 139 (137-145) mmol/L Potassium 3.8 (3.5-5.1) mmol/L Chloride 106 (98-107) mmol/L Carbon Dioxide 22 (22-30) mmol/L Anion Gap 11 mmol/L BUN 9 (7-17) mg/dL Creatinine 0.78 (0.52-1.04) mg/dL Est GFR (CKD-EPI)AfAm >90 (>60 ml/min/1.73 sqM) Est GFR (CKD-EPI)NonAf >90 (>60 ml/min/1.73 sqM) Glucose 147 H (74-99) mg/dL Calcium 9.6 (8.4-10.2) mg/dL Total Bilirubin 0.3 (0.2-1.3) mg/dL AST 35 (14-36) U/L ALT 43 (9-52) U/L Alkaline Phosphatase 124 (38-126) U/L Total Protein 7.4 (6.3-8.2) g/dL Albumin 4.4 (3.5-5.0) g/dL Amylase 54 (30-110) U/L Lipase 213 (23-300) U/L Urine Color Light Red Urine Appearance Clear (Clear) Urine pH 6.5 (5.0-8.0) Ur Specific [place] 1.010 (1.001-1.035) Urine Protein Trace H (Negative) Urine Glucose (UA) Negative (Negative) Urine Ketones Negative (Negative) Urine Blood Large H (Negative) Urine Nitrite Negative (Negative) Urine Bilirubin Negative (Negative) Urine Urobilinogen <2.0 (<2.0) mg/dL Ur Leukocyte Esterase Small H (Negative) Urine RBC >182 H (0-5) /hpf Urine WBC 7 H (0-5) /hpf Ur Squamous Epith Cells 2 (0-4) /hpf Disposition Clinical Impression: Left flank pain, chronic Disposition: HOME SELF-CARE Condition: Stable Instructions (If sedation given, give patient instructions): Kidney Stones (ED) Additional Instructions: Please return to the Emergency Department if symptoms worsen or any other concerns. Follow-up with your urologist at your appointment on Sunday. Continue with Toradol and Flomax from your PCP. Is patient prescribed a controlled substance at d/c from ED?: No Referrals: Melchor Stevens MD [Primary Care Provider] - 1-2 days
[2019-05-13 19:04] LABS: ALT 43 U/L (9-52); AST 35 U/L (14-36); African American GFR (CKD) >90 (>60 ml/min/1.73 sqM); Albumin 4.4 g/dL (3.5-5.0); Alkaline Phosphatase 124 U/L (38-126); Amylase 54 U/L (30-110); Anion Gap 11 mmol/L; Blood Urea Nitrogen 9 mg/dL (7-17); Calcium 9.6 mg/dL (8.4-10.2); Carbon Dioxide 22 mmol/L (22-30); Chloride 106 mmol/L (98-107); Glucose 147 mg/dL (74-99); Non-African American GFR(CKD) >90 (>60 ml/min/1.73 sqM); Potassium 3.8 mmol/L (3.5-5.1); Sodium 139 mmol/L (137-145); Total Bilirubin 0.3 mg/dL (0.2-1.3); Total Protein 7.4 g/dL (6.3-8.2)
--- NOTE | 2019-05-13 19:16 | XR ---
EXAMINATION TYPE: XR KUB DATE OF EXAM: 05/13/2019 COMPARISON: March 26, 2019 HISTORY: Pain TECHNIQUE: 2 views FINDINGS: 2 views upright were obtained. There are clips from cholecystectomy. There is no sign of in testinal obstruction or pneumoperitoneum. There is slight levoscoliosis. Lung bases are clear. There are no calcifications over the kidneys. IMPRESSION: Nonacute abdomen. No change.
[2019-05-13] MEDS ORDERED: MORPHINE SULFATE 2 MG/ML SYRINGE IVP STA (19:27)
[2019-05-13 20:06] VITALS: BP 130/79; PULSE 95; TEMP 98
== END 2019-05-13 20:10 | disposition home or self-care (01) ==
LOC: EC 17:43
DX: R10.9 Unspecified abdominal pain (principal); G89.29 Other chronic pain; R31.9 Hematuria, unspecified; R11.0 Nausea; I10 Essential (primary) hypertension; F31.9 Bipolar disorder, unspecified; F41.9 Anxiety disorder, unspecified; F17.200 Nicotine dependence, unspecified, uncomplicated; Z88.0 Allergy status to penicillin; Z88.2 Allergy status to sulfonamides; Z88.5 Allergy status to narcotic agent; Z88.8 Allergy status to other drugs, medicaments and biological substances; Z91.018 Allergy to other foods; Z91.041 Radiographic dye allergy status; Z79.899 Other long term (current) drug therapy; Z87.19 Personal history of other diseases of the digestive system; Z86.69 Personal history of other diseases of the nervous system and sense organs; Z90.49 Acquired absence of other specified parts of digestive tract; Z87.442 Personal history of urinary calculi; Z84.1 Family history of disorders of kidney and ureter
CPT/HCPCS: 36415; 80053; 82150; 83690; 85025; 81001; 74018; 99284; 96374; 96375; 96376; 96361; J2270 ×2; J2405

== ENCOUNTER 2019-05-19 21:28 | Emergency (ER) | payer OTHER ==
[2019-05-19 21:32] VITALS: BP 143/89; PULSE 101; RESP 20; TEMP 97.8
[2019-05-19] MEDS ORDERED: ONDANSETRON 4 MG/2 ML VIAL ONE (23:20)
[2019-05-19] MEDS ORDERED: DOXYCYCLINE 100 MG CAP ONE (23:20)
[2019-05-19] MEDS ORDERED: HYDROmorphone 1 MG/ML 1 ML SYRINGE ONE (23:20)
[2019-05-20] MEDS ORDERED: SODIUM CHLORIDE 0.9% 1,000 ML BAG ONE (00:30)
[2019-05-20] MEDS ORDERED: HYDROmorphone 0.5 MG/0.5 ML SYRINGE ONE (01:36)
[2019-05-20] MEDS ORDERED: METOCLOPRAMIDE 5 MG/ML 2 ML VIAL ONE (01:36)
[2019-05-20] MEDS ORDERED: diphenhydrAMINE 50 MG/ML 1 ML VIAL ONE (01:36)
[2019-05-20 09:20] LABS: ALT 29 U/L (9-52); AST 18 U/L (14-36); African American GFR (CKD) >90 (>60 ml/min/1.73 sqM); Albumin 4.2 g/dL (3.5-5.0); Alkaline Phosphatase 102 U/L (38-126); Anion Gap 12 mmol/L; Blood Urea Nitrogen 10 mg/dL (7-17); Calcium 9.2 mg/dL (8.4-10.2); Carbon Dioxide 18 mmol/L (22-30); Chloride 110 mmol/L (98-107); Glucose 220 mg/dL (74-99); Non-African American GFR(CKD) >90 (>60 ml/min/1.73 sqM); Potassium 3.6 mmol/L (3.5-5.1); Sodium 140 mmol/L (137-145); Total Bilirubin 0.3 mg/dL (0.2-1.3)
[2019-05-20 09:56] LABS: Basophils # (A) 0.1 k/uL (0-0.2); Basophils % (A) 1 %; Eosinophils # (A) 0.4 k/uL (0-0.7); Eosinophils % (A) 4 %; HCT 38.9 % (34.0-46.0); HGB 13.4 gm/dL (11.4-16.0); Lymphocytes # (A) 4.5 k/uL (1.0-4.8); Lymphocytes % (A) 38 %; MCH 30.6 pg (25.0-35.0); MCHC 34.4 g/dL (31.0-37.0); MCV 88.9 fL (80.0-100.0); Mean Platelet Volume 6.1; Monocytes # (A) 0.5 k/uL (0-1.0); Monocytes % (A) 4 %; Neutrophils # (A) 6.3 k/uL (1.3-7.7); Neutrophils % (A) 53 %; Platelet Count 303 k/uL (150-450); RBC 4.38 m/uL (3.80-5.40); RDW 12.5 % (11.5-15.5)
[2019-05-20 10:21] LABS: Appearance,Urine Cloudy (Clear); Bilirubin,Urine Negative (Negative); Blood,Urine Trace (Negative); Calcium Oxalate Crystals,Urine Many /hpf; Color,Urine Yellow; Glucose,Urine (UA) Negative (Negative); Ketones,Urine Negative (Negative); Leukocyte Esterase,Urine Large (Negative); Mucus,Urine Rare /hpf; Nitrite,Urine Negative (Negative); Protein,Urine 1+ (Negative); RBC,Urine 36 /hpf (0-5); Specific Gravity,Urine 1.029 (1.001-1.035); Squamous Epithelial Cell,Urine 8 /hpf (0-4); WBC,Urine >182 /hpf (0-5)
--- NOTE | 2019-05-23 13:38 | XR ---
EXAMINATION TYPE: XR abdomen 1V DATE OF EXAM: 05/23/2019 1:30 PM CLINICAL HISTORY: Left flank pain. TECHNIQUE: Two Upright KUB images of the abdomen are obtained. COMPARISON: Abdominal x-ray one week earlier. FINDINGS: Scattered gas is seen in non-distended stomach and small bowel loops. Gas is also seen in n on-distended colon. Few scattered air-fluid levels are present. Cholecystectomy clips are redemonstra coco. Lung bases are clear. Osseous structures redemonstrates slight scoliotic curvature. IMPRESSION: Overall nonspecific but strongly favor nonobstructive bowel gas pattern. No definitive nephrolithiasi s. No significant change from prior.
== END 2019-05-20 01:35 | disposition home or self-care (01) ==
LOC: EC 21:28
DX: N20.0 Calculus of kidney (principal); N39.0 Urinary tract infection, site not specified; L02.411 Cutaneous abscess of right axilla
CPT/HCPCS: 10060; 36415; 71046; 74018; 80053; 81001; 83690; 85025; 87070; 87077; 87186; 87205; 96360; 99284

== ENCOUNTER 2019-07-15 15:05 | Emergency (ER) | payer OTHER ==
[2019-07-15 15:09] VITALS: TEMP 98
[2019-07-15] MEDS ORDERED: MORPHINE SULFATE 4 MG/ML SYRINGE IV STA (15:29)
[2019-07-15] MEDS ORDERED: KETOROLAC 30 MG/ML 1 ML VIAL IVP STA (15:29)
[2019-07-15] MEDS ORDERED: SODIUM CHLORIDE 0.9% 1,000 ML IV STA (15:29)
--- NOTE | 2019-07-15 15:40 | ED ---
General Adult HPI - General Chief complaint: Abdominal Pain Stated complaint: left back pain Time Seen by Provider: 07/15/19 15:22 Source: patient, RN notes reviewed, old records reviewed Mode of arrival: ambulatory Limitations: no limitations - History of Present Illness Initial comments: 44 yo female presenting with left flank pain. She denies fever or chills. She does have history of chronic left flank pain. She has history of renal colic as well as kidney infections. She states she's had some nausea and vomiting at home. No anterior abdominal pain. Pain is localized to the left flank. Described as moderate to severe. She does report hematuria. - Related Data Home Medications Medication Instructions Recorded Confirmed OLANZapine [ZyPREXA] 10 mg PO BID 08/19/17 03/04/19 oxyCODONE-APAP 10-325MG [Percocet 1 tab PO QID PRN 08/29/17 03/04/19 10-325 mg] OXcarbazepine [Trileptal] 300 mg PO BID 02/05/18 03/04/19 ARIPiprazole [Abilify] 5 mg PO DAILY 03/12/18 03/04/19 Mirtazapine [Remeron] 15 mg PO HS 03/12/18 03/04/19 PARoxetine HCL [Paxil] 40 mg PO DAILY 03/12/18 03/04/19 Topiramate [Topamax] 100 mg PO BID 03/12/18 03/04/19 PARoxetine [Paxil] 20 mg PO DAILY 06/04/18 03/04/19 Atorvastatin Calcium [Lipitor] 10 mg PO DAILY 09/30/18 03/04/19 Ketorolac [Toradol] 10 mg PO Q6HR PRN 10/17/18 03/04/19 Tamsulosin HCl [Flomax] 0.4 mg PO DAILY 12/17/18 03/04/19 Varenicline [Chantix Continuing 1 mg PO BID 01/29/19 03/04/19 Pack] Previous Rx's Medication Instructions Recorded Lisinopril [Zestril] 10 mg PO HS tab 08/02/17 SUMAtriptan SUCCINATE [Imitrex] 100 mg PO DAILY PRN tab 08/02/17 metFORMIN HCL [Glucophage] 1,000 mg PO BID-W/MEALS tab 08/02/17 Ondansetron Odt [Zofran Odt] 4 mg PO Q8HR PRN #12 tab 03/03/19 Tamsulosin [Flomax] 0.4 mg PO DAILY #7 cap 03/26/19 Cephalexin [Keflex] 500 mg PO Q6HR #40 cap 07/15/19 Allergies Allergy/AdvReac Type Severity Reaction Status Date / Time bupropion HCl Allergy Rash/Hives Verified 07/15/19 15:09 [From Wellbutrin] divalproex sodium Allergy Unknown Verified 07/15/19 15:09 [From Depakote] fentanyl Allergy Swelling Verified 07/15/19 15:09 Iodinated Contrast Media Allergy Anaphylaxis Verified 07/15/19 15:09 [Iodinated Contrast Media - IV Dye] orange juice [[place]] Allergy Rash/Hives Verified 07/15/19 15:09 Sulfa (Sulfonamide Allergy Rash/Hives Verified 07/15/19 15:09 Antibiotics) Penicillins AdvReac Nausea & Verified 07/15/19 15:09 Vomiting Review of Systems ROS Statement: Those systems with pertinent positive or pertinent negative responses have been documented in the HPI. ROS Other: All systems not noted in ROS Statement are negative. 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 History of Any Multi-Drug Resistant Organisms: None Reported Date of last positivie culture/infection: 05/14/17 MDRO Source:: ESBL URINE Past Surgical History: Bladder Surgery, Section, Cholecystectomy, Hysterectomy, Orthopedic Surgery, Tubal Ligation Additional Past Surgical History / Comment(s): R ovarian cystectomy, laparoscopic surgery for L ovary that had attached to the bowel, D&C, numerous lithotripsies, nephroscopies, cystoscopies and stents to ureters-none in place at this time, L robotic pyeloplasty with post op infection around kidney which then required a picc line/later removed (pt states was not MRSA), L rotator cuff repair, L wrist tendon surgery, colonoscopy Past Anesthesia/Blood Transfusion Reactions: Family History of Problems w/ Anesthesia Additional Past Anesthesia/Blood Transfusion Reaction / Comment(s): dad-hard time waking up due to enzyme problems in liver Past Psychological History: ADD/ADHD, Anxiety, Bipolar, Depression, PTSD Smoking Status: Current every day smoker Past Alcohol Use History: None Reported Past Drug Use History: None Reported - Past Family History Brother(s) Family Medical History: Cancer Additional Family Medical History / Comment(s): testicular Father Family Medical History: Coronary Artery Disease (CAD), CVA/TIA, Diabetes Mellitus, Renal Disease Additional Family Medical History / Comment(s): GLAUCOMA,NEUROPATHY HAD TRIPLE CABG, at 56yrs from renal disease. Mother Family Medical History: Hyperlipidemia Additional Family Medical History / Comment(s): DDD, HAD 3 vessel CABG AGE 54. General Exam Limitations: no limitations General appearance: alert, in no apparent distress Head exam: Present: atraumatic, normocephalic Eye exam: Present: normal appearance ENT exam: Present: normal exam, mucous membranes moist Neck exam: Present: normal inspection, full ROM. Absent: tenderness, meningismus Respiratory exam: Present: normal lung sounds bilaterally. Absent: respiratory distress, wheezes Cardiovascular Exam: Present: regular rate, normal rhythm GI/Abdominal exam: Present: soft. Absent: distended, tenderness, guarding, rebound Extremities exam: Present: normal inspection, normal capillary refill Back exam: Present: normal inspection, full ROM, CVA tenderness (L) Neurological exam: Present: alert, oriented X3, CN II-XII intact. Absent: motor sensory deficit Skin exam: Present: warm, dry, intact. Absent: cyanosis, diaphoretic Course Vital Signs 07/15/19 07/15/19 15:08 17:27 Temperature 98.0 F Pulse Rate 85 84 Respiratory 20 17 Rate Blood Pressure 112/71 99/61 O2 Sat by Pulse 99 99 Oximetry Medical Decision Making - Medical Decision Making 44-year-old female presenting with left flank pain. This is a chronic complaint for this patient. She is stable vitals upon arrival. Urinalysis is positive, showing greater than 182 white cells with minimal red cells. this is consistent with infection rather than stone. kub negative for any radiopaque stones. she has mild leukocytosis at 13.9. urine culture and blood cultures are performed. i did review her previous microbiology and patient had staph aureus as well as e. coli infection both susceptible to cephalosporins. she is given 1 g of ceftriaxone in the emergency department as well as iv hydration and symptom control. reevaluate this patient. she is resting comfortably with stable vitals. she does not want admission at this time and states she will return if she worsens in any way. i feel patient is reliable for outpatient treatment, will prescribe keflex, she will maintain oral hydration at home. she will return with any worsening or changing symptoms - Lab Data Result diagrams: 07/15/19 15:30 07/15/19 15:30 Lab Results 07/15/19 07/15/19 07/15/19 Range/Units 15:30 15:30 15:30 WBC 13.5 H (3.8-10.6) k/uL RBC 4.80 (3.80-5.40) m/uL Hgb 14.2 (11.4-16.0) gm/dL Hct 42.0 (34.0-46.0) % MCV 87.5 (80.0-100.0) fL MCH 29.6 (25.0-35.0) pg MCHC 33.8 (31.0-37.0) g/dL RDW 12.4 (11.5-15.5) % Plt Count 238 (150-450) k/uL Neutrophils % 62 % Lymphocytes % 27 % Monocytes % 5 % Eosinophils % 4 % Basophils % 1 % Neutrophils # 8.4 H (1.3-7.7) k/uL Lymphocytes # 3.6 (1.0-4.8) k/uL Monocytes # 0.6 (0-1.0) k/uL Eosinophils # 0.6 (0-0.7) k/uL Basophils # 0.1 (0-0.2) k/uL Sodium 137 (137-145) mmol/L Potassium 3.9 (3.5-5.1) mmol/L Chloride 106 (98-107) mmol/L Carbon Dioxide 21 L (22-30) mmol/L Anion Gap 10 mmol/L BUN 7 (7-17) mg/dL Creatinine 0.65 (0.52-1.04) mg/dL Est GFR (CKD-EPI)AfAm >90 (>60 ml/min/1.73 sqM) Est GFR (CKD-EPI)NonAf >90 (>60 ml/min/1.73 sqM) Glucose 151 H (74-99) mg/dL Calcium 9.4 (8.4-10.2) mg/dL Total Bilirubin 0.8 (0.2-1.3) mg/dL AST 38 H (14-36) U/L ALT 31 (4-34) U/L Alkaline Phosphatase 132 H (38-126) U/L Total Protein 7.4 (6.3-8.2) g/dL Albumin 4.4 (3.5-5.0) g/dL Lipase 132 (23-300) U/L Urine Color Yellow Urine Appearance Cloudy H (Clear) Urine pH 6.0 (5.0-8.0) Ur Specific [place] 1.011 (1.001-1.035) Urine Protein Negative (Negative) Urine Glucose (UA) Negative (Negative) Urine Ketones Negative (Negative) Urine Blood Trace H (Negative) Urine Nitrite Positive H (Negative) Urine Bilirubin Negative (Negative) Urine Urobilinogen <2.0 (<2.0) mg/dL Ur Leukocyte Esterase Large H (Negative) Urine RBC 4 (0-5) /hpf Urine WBC >182 H (0-5) /hpf Urine WBC Clumps Moderate H (None) /hpf Ur Squamous Epith Cells 2 (0-4) /hpf Urine Bacteria Many H (None) /hpf Urine Mucus Rare H (None) /hpf Disposition Clinical Impression: Pyelonephritis, Left flank pain Disposition: HOME SELF-CARE Condition: Fair Instructions (If sedation given, give patient instructions): Kidney Infection (ED) Prescriptions: Cephalexin [Keflex] 500 mg PO Q6HR #40 cap Is patient prescribed a controlled substance at d/c from ED?: No Referrals: Melchor Stevens MD [Primary Care Provider] - 1-2 days Malachi Ortega MD [STAFF PHYSICIAN] - 1-2 days Time of Disposition: 17:35
[2019-07-15 15:41] LABS: Basophils # (A) 0.1 k/uL (0-0.2); Basophils % (A) 1 %; Eosinophils # (A) 0.6 k/uL (0-0.7); Eosinophils % (A) 4 %; HGB 14.2 gm/dL (11.4-16.0); Lymphocytes # (A) 3.6 k/uL (1.0-4.8); Lymphocytes % (A) 27 %; MCH 29.6 pg (25.0-35.0); MCHC 33.8 g/dL (31.0-37.0); MCV 87.5 fL (80.0-100.0); Mean Platelet Volume 7.7; Monocytes # (A) 0.6 k/uL (0-1.0); Monocytes % (A) 5 %; Neutrophils # (A) 8.4 k/uL (1.3-7.7); Neutrophils % (A) 62 %; Platelet Count 238 k/uL (150-450); RDW 12.4 % (11.5-15.5); WBC 13.5 k/uL (3.8-10.6)
[2019-07-15 15:56] LABS: Appearance,Urine Cloudy (Clear); Bacteria,Urine Many /hpf; Bilirubin,Urine Negative (Negative); Blood,Urine Trace (Negative); Color,Urine Yellow; Glucose,Urine (UA) Negative (Negative); Ketones,Urine Negative (Negative); Leukocyte Esterase,Urine Large (Negative); Mucus,Urine Rare /hpf; Nitrite,Urine Positive (Negative); Protein,Urine Negative (Negative); RBC,Urine 4 /hpf (0-5); Specific Gravity,Urine 1.011 (1.001-1.035); Squamous Epithelial Cell,Urine 2 /hpf (0-4); Urobilinogen,Urine <2.0 mg/dL (<2.0); WBC,Urine >182 /hpf (0-5)
[2019-07-15 15:57] LABS: ALT 31 U/L (4-34); AST 38 U/L (14-36); African American GFR (CKD) >90 (>60 ml/min/1.73 sqM); Albumin 4.4 g/dL (3.5-5.0); Alkaline Phosphatase 132 U/L (38-126); Anion Gap 10 mmol/L; Blood Urea Nitrogen 7 mg/dL (7-17); Calcium 9.4 mg/dL (8.4-10.2); Carbon Dioxide 21 mmol/L (22-30); Chloride 106 mmol/L (98-107); Glucose 151 mg/dL (74-99); Non-African American GFR(CKD) >90 (>60 ml/min/1.73 sqM); Potassium 3.9 mmol/L (3.5-5.1); Sodium 137 mmol/L (137-145); Total Bilirubin 0.8 mg/dL (0.2-1.3); Total Protein 7.4 g/dL (6.3-8.2)
--- NOTE | 2019-07-15 16:15 | XR ---
EXAMINATION TYPE: XR KUB DATE OF EXAM: 07/15/2019 COMPARISON: 05/13/2019, 05/20/2019 HISTORY: Pain TECHNIQUE: One view abdominal series FINDINGS: The osseous structures are intact. The bowel gas pattern is nonspecific. Lung bases are clear. Curv ature of the spine noted with postsurgical changes involving the right upper quadrant. Arthropathy of the hips. Calcifications in the pelvis are stable and likely vascular. IMPRESSION: 1. Nonspecific abdomen.
[2019-07-15] MEDS ORDERED: cefTRIAXone IN SWFI 1,000 MG/10 ML SYRINGE IVP STA (16:20)
[2019-07-15] MEDS ORDERED: SODIUM CHLORIDE 0.9% 500 ML 500 ML IV ONE (16:20)
[2019-07-15] MEDS ORDERED: MORPHINE SULFATE 4 MG/ML SYRINGE IVP STA (17:21)
[2019-07-15 18:28] VITALS: BP 96/57; PULSE 81; RESP 18
== END 2019-07-15 18:24 | disposition home or self-care (01) ==
LOC: EC 15:05
DX: N12 Tubulo-interstitial nephritis, not specified as acute or chronic (principal); E11.9 Type 2 diabetes mellitus without complications; I10 Essential (primary) hypertension; F41.9 Anxiety disorder, unspecified; F31.9 Bipolar disorder, unspecified; F17.200 Nicotine dependence, unspecified, uncomplicated; Z79.899 Other long term (current) drug therapy; Z88.8 Allergy status to other drugs, medicaments and biological substances; Z91.048 Other nonmedicinal substance allergy status; Z88.2 Allergy status to sulfonamides; Z88.0 Allergy status to penicillin; Z91.018 Allergy to other foods; Z88.5 Allergy status to narcotic agent
CPT/HCPCS: 36415; 80053; 83605; 83690; 85025; 81001; 87040; 87086; 87077; 87186; 74018; 99284; 96374; 96375 ×2; 96376; 96361; J2270; J0696; J1885

== ENCOUNTER 2019-07-16 07:39 | Observation (INO) | payer OTHER ==
[2019-07-16] MEDS ORDERED: SODIUM CHLORIDE 0.9% 1,000 ML IV STA (07:54)
[2019-07-16] MEDS ORDERED: MORPHINE SULFATE 4 MG/ML SYRINGE IV STA (08:00)
--- NOTE | 2019-07-16 08:05 | ED ---
General Adult HPI - General Chief complaint: Recheck/Abnormal Lab/Rx Stated complaint: recheck - UTI Time Seen by Provider: 07/16/19 07:44 Source: patient Mode of arrival: ambulatory Limitations: no limitations - History of Present Illness Initial comments: Dictation was produced using [employer] dictation software. please excuse any grammatical, word or spelling errors. Chief Complaint: 44-year-old female with past medical history of kidney stones, diabetes, frequent UTIs presents with fever, worsening left flank pain. History of Present Illness: She is 44-year-old female she was seen here in emergency department yesterday where she was diagnosed with pyelonephritis. Patient wanted to be discharged home however was given strict return precautions to return if she had any worsening symptoms. Patient states that her left flank pain is worse than it was yesterday. She also reports that she spiked temperature 10 2F at home. Patient has history of frequent urinary tract infections. Denies any nausea or vomiting. She denies any abdominal pain. Patient reports she has history of multiple kidney stones. The ROS documented in this emergency department record has been reviewed and confirmed by me. Those systems with pertinent positive or negative responses have been documented in the HPI. All other systems are other negative and/or noncontributory. PHYSICAL EXAM: General Impression: Alert and oriented x3, not in acute distress HEENT: Normocephalic atraumatic, extra-ocular movements intact, pupils equal and reactive to light bilaterally, mucous membranes moist. Cardiovascular: Heart regular rate and rhythm, S1&S2 audible, no murmurs, rubs or gallops Chest: Lungs clear to auscultation bilaterally, no rhonchi, no wheeze, no rales Abdomen: Bowel sounds present, abdomen soft, non-tender, non-distended, no orga nomegaly Musculoskeletal: Pulses present and equal in all extremities, no peripheral edema, positive CVA tenderness on the left Motor: no focal deficits noted Neurological: CN II-XII grossly intact, no focal motor or sensory deficits noted Skin: Intact with no visualized rashes Psych: Normal affect and mood ED course: 44 y Old female who was seen yesterday for left flank pain and diagnosed with pyelonephritis presents today with worsening flank pain and development of constitutional symptoms. Signs upon arrival are within acceptable limits. Patient appears comfortable at bedside however has significant CVA tenderness on the left side. Documentation was reviewed from yesterday. She is afebrile however reports taking antipyretics prior to coming to the emergency department today. CBC unremarkable. Metabolic panel shows mild anion gap acidosis. 2.2 and lactic acid. Urinalysis consistent with urinary tract infection. Patient be admitted for pyelonephritis. Patient treatment. Patient hemodynamics is stable. There is laboratory evidence of likely early sepsis. Patient agreeable to disposition. Discussed patient case with Dr. Zhang who is willing to accept patients care. Patient given 1 g ceftriaxone. - Related Data Home Medications Medication Instructions Recorded Confirmed oxyCODONE-APAP 10-325MG [Percocet 1 tab PO QID PRN 08/29/17 07/16/19 10-325 mg] OXcarbazepine [Trileptal] 300 mg PO BID 02/05/18 07/16/19 Mirtazapine [Remeron] 15 mg PO HS 03/12/18 07/16/19 PARoxetine HCL [Paxil] 40 mg PO DAILY 03/12/18 07/16/19 Topiramate [Topamax] 100 mg PO BID 03/12/18 07/16/19 PARoxetine [Paxil] 20 mg PO DAILY 06/04/18 07/16/19 ARIPiprazole [Abilify] 10 mg PO DAILY 07/16/19 07/16/19 Atorvastatin [Lipitor] 40 mg PO DAILY 07/16/19 07/16/19 Benzoyl Peroxide [Benzac AC Wash] 1 applic TOPICAL BID 07/16/19 07/16/19 Clindamycin 1% [place] 1 applic TOPICAL BID 07/16/19 07/16/19 Loratadine [Claritin] 10 mg PO DAILY 07/16/19 07/16/19 metFORMIN HCL 1,000 mg PO BID 07/16/19 07/16/19 Previous Rx's Medication Instructions Recorded Lisinopril [Zestril] 10 mg PO HS tab 08/02/17 SUMAtriptan SUCCINATE [Imitrex] 100 mg PO DAILY PRN tab 08/02/17 Cephalexin [Keflex] 500 mg PO Q6HR #40 cap 07/15/19 Allergies Allergy/AdvReac Type Severity Reaction Status Date / Time bupropion HCl Allergy Rash/Hives Verified 07/16/19 07:41 [From Wellbutrin] divalproex sodium Allergy Unknown Verified 07/16/19 07:41 [From Depakote] fentanyl Allergy Swelling Verified 07/16/19 07:41 Iodinated Contrast Media Allergy Anaphylaxis Verified 07/16/19 07:41 [Iodinated Contrast Media - IV Dye] orange juice [[place]] Allergy Rash/Hives Verified 07/16/19 07:41 Sulfa (Sulfonamide Allergy Rash/Hives Verified 07/16/19 07:41 Antibiotics) Penicillins AdvReac Nausea & Verified 07/16/19 07:41 Vomiting Review of Systems ROS Statement: Those systems with pertinent positive or pertinent negative responses have been documented in the HPI. ROS Other: All systems not noted in ROS Statement are negative. 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 History of Any Multi-Drug Resistant Organisms: None Reported Date of last positivie culture/infection: 05/14/17 MDRO Source:: ESBL URINE Past Surgical History: Bladder Surgery, Section, Cholecystectomy, Hysterectomy, Orthopedic Surgery, Tubal Ligation Additional Past Surgical History / Comment(s): R ovarian cystectomy, lapa roscopic surgery for L ovary that had attached to the bowel, D&C, numerous lithotripsies, nephroscopies, cystoscopies and stents to ureters-none in place at this time, L robotic pyeloplasty with post op infection around kidney which then required a picc line/later removed (pt states was not MRSA), L rotator cuff repair, L wrist tendon surgery, colonoscopy Past Anesthesia/Blood Transfusion Reactions: Family History of Problems w/ Anesthesia Additional Past Anesthesia/Blood Transfusion Reaction / Comment(s): dad-hard time waking up due to enzyme problems in liver Past Psychological History: ADD/ADHD, Anxiety, Bipolar, Depression, PTSD Smoking Status: Current every day smoker Past Alcohol Use History: None Reported Past Drug Use History: None Reported - Past Family History Brother(s) Family Medical History: Cancer Additional Family Medical History / Comment(s): testicular Father Family Medical History: Coronary Artery Disease (CAD), CVA/TIA, Diabetes Mellitus, Renal Disease Additional Family Medical History / Comment(s): GLAUCOMA,NEUROPATHY HAD TRIPLE CABG, at 56yrs from renal disease. Mother Family Medical History: Hyperlipidemia Additional Family Medical History / Comment(s): DDD, HAD 3 vessel CABG AGE 54. General Exam Limitations: no limitations Course Vital Signs 07/16/19 07/16/19 07:41 08:30 Temperature 97.6 F Pulse Rate 91 86 Respiratory 18 18 Rate Blood Pressure 109/69 94/67 O2 Sat by Pulse 96 95 Oximetry Medical Decision Making - Lab Data Result diagrams: 07/16/19 08:05 07/16/19 08:05 Lab Results 07/16/19 07/16/19 07/16/19 Range/Units 08:05 08:05 08:05 WBC 10.4 (3.8-10.6) k/uL RBC 4.52 (3.80-5.40) m/uL Hgb 13.3 (11.4-16.0) gm/dL Hct 39.7 (34.0-46.0) % MCV 87.8 (80.0-100.0) fL MCH 29.5 (25.0-35.0) pg MCHC 33.6 (31.0-37.0) g/dL RDW 12.5 (11.5-15.5) % Plt Count 238 (150-450) k/uL Neutrophils % 48 % Lymphocytes % 37 % Monocytes % 5 % Eosinophils % 7 % Basophils % 1 % Neutrophils # 5.0 (1.3-7.7) k/uL Lymphocytes # 3.8 (1.0-4.8) k/uL Monocytes # 0.5 (0-1.0) k/uL Eosinophils # 0.7 (0-0.7) k/uL Basophils # 0.1 (0-0.2) k/uL Sodium 137 (137-145) mmol/L Potassium 4.1 (3.5-5.1) mmol/L Chloride 106 (98-107) mmol/L Carbon Dioxide 19 L (22-30) mmol/L Anion Gap 12 mmol/L BUN 10 (7-17) mg/dL Creatinine 0.73 (0.52-1.04) mg/dL Est GFR (CKD-EPI)AfAm >90 (>60 ml/min/1.73 sqM) Est GFR (CKD-EPI)NonAf >90 (>60 ml/min/1.73 sqM) Glucose 180 H (74-99) mg/dL Plasma Lactic Acid Brant 2.2 H* (0.7-2.0) mmol/L Calcium 9.0 (8.4-10.2) mg/dL Urine Color Urine Appearance (Clear) Urine pH (5.0-8.0) Ur Specific [place] (1.001-1.035) Urine Protein (Negative) Urine Glucose (UA) (Negative) Urine Ketones (Negative) Urine Blood (Negative) Urine Nitrite (Negative) Urine Bilirubin (Negative) Urine Urobilinogen (<2.0) mg/dL Ur Leukocyte Esterase (Negative) Urine RBC (0-5) /hpf Urine WBC (0-5) /hpf Urine WBC Clumps (None) /hpf Ur Squamous Epith Cells (0-4) /hpf Urine Bacteria (None) /hpf Urine Mucus (None) /hpf 07/16/19 Range/Units 08:05 WBC (3.8-10.6) k/uL RBC (3.80-5.40) m/uL Hgb (11.4-16.0) gm/dL Hct (34.0-46.0) % MCV (80.0-100.0) fL MCH (25.0-35.0) pg MCHC (31.0-37.0) g/dL RDW (11.5-15.5) % Plt Count (150-450) k/uL Neutrophils % % Lymphocytes % % Monocytes % % Eosinophils % % Basophils % % Neutrophils # (1.3-7.7) k/uL Lymphocytes # (1.0-4.8) k/uL Monocytes # (0-1.0) k/uL Eosinophils # (0-0.7) k/uL Basophils # (0-0.2) k/uL Sodium (137-145) mmol/L Potassium (3.5-5.1) mmol/L Chloride (98-107) mmol/L Carbon Dioxide (22-30) mmol/L Anion Gap mmol/L BUN (7-17) mg/dL Creatinine (0.52-1.04) mg/dL Est GFR (CKD-EPI)AfAm (>60 ml/min/1.73 sqM) Est GFR (CKD-EPI)NonAf (>60 ml/min/1.73 sqM) Glucose (74-99) mg/dL Plasma Lactic Acid Brant (0.7-2.0) mmol/L Calcium (8.4-10.2) mg/dL Urine Color Yellow Urine Appearance Cloudy H (Clear) Urine pH 5.5 (5.0-8.0) Ur Specific [place] 1.015 (1.001-1.035) Urine Protein Trace H (Negative) Urine Glucose (UA) Negative (Negative) Urine Ketones Negative (Negative) Urine Blood Trace H (Negative) Urine Nitrite Negative (Negative) Urine Bilirubin Negative (Negative) Urine Urobilinogen <2.0 (<2.0) mg/dL Ur Leukocyte Esterase Large H (Negative) Urine RBC 10 H (0-5) /hpf Urine WBC 74 H (0-5) /hpf Urine WBC Clumps Moderate H (None) /hpf Ur Squamous Epith Cells 6 H (0-4) /hpf Urine Bacteria Few H (None) /hpf Urine Mucus Rare H (None) /hpf Disposition Clinical Impression: Pyelonephritis Disposition: ADMITTED IP TO THIS [facility] Condition: Fair Referrals: Melchor Stevens MD [Primary Care Provider] - 1-2 days Decision Time: 09:58
[2019-07-16 08:25] LABS: Basophils # (A) 0.1 k/uL (0-0.2); Basophils % (A) 1 %; Eosinophils # (A) 0.7 k/uL (0-0.7); Eosinophils % (A) 7 %; HCT 39.7 % (34.0-46.0); HGB 13.3 gm/dL (11.4-16.0); Lymphocytes # (A) 3.8 k/uL (1.0-4.8); Lymphocytes % (A) 37 %; MCH 29.5 pg (25.0-35.0); MCHC 33.6 g/dL (31.0-37.0); MCV 87.8 fL (80.0-100.0); Mean Platelet Volume 7.8; Monocytes # (A) 0.5 k/uL (0-1.0); Monocytes % (A) 5 %; Neutrophils % (A) 48 %; Platelet Count 238 k/uL (150-450); RBC 4.52 m/uL (3.80-5.40); RDW 12.5 % (11.5-15.5); WBC 10.4 k/uL (3.8-10.6)
[2019-07-16 08:33] LABS: Appearance,Urine Cloudy (Clear); Bacteria,Urine Few /hpf; Bilirubin,Urine Negative (Negative); Blood,Urine Trace (Negative); Color,Urine Yellow; Glucose,Urine (UA) Negative (Negative); Ketones,Urine Negative (Negative); Leukocyte Esterase,Urine Large (Negative); Mucus,Urine Rare /hpf; Nitrite,Urine Negative (Negative); PH, Urine 5.5 (5.0-8.0); Protein,Urine Trace (Negative); RBC,Urine 10 /hpf (0-5); Specific Gravity,Urine 1.015 (1.001-1.035); Squamous Epithelial Cell,Urine 6 /hpf (0-4); Urobilinogen,Urine <2.0 mg/dL (<2.0); WBC,Urine 74 /hpf (0-5)
[2019-07-16 08:38] LABS: African American GFR (CKD) >90 (>60 ml/min/1.73 sqM); Anion Gap 12 mmol/L; Blood Urea Nitrogen 10 mg/dL (7-17); Carbon Dioxide 19 mmol/L (22-30); Chloride 106 mmol/L (98-107); Glucose 180 mg/dL (74-99); Non-African American GFR(CKD) >90 (>60 ml/min/1.73 sqM); Potassium 4.1 mmol/L (3.5-5.1); Sodium 137 mmol/L (137-145)
[2019-07-16] MEDS ORDERED: HYDROmorphone 0.5 MG/0.5 ML SYRINGE IVP STA (09:15)
[2019-07-16] MEDS ORDERED: oxyCODONE-APAP 10-325MG 1 EACH TAB PO PRN (09:58)
[2019-07-16] MEDS ORDERED: NALOXONE 0.4 MG/ML 1 ML VIAL IV PRN (09:58)
[2019-07-16] MEDS ORDERED: SUMAtriptan SUCCINATE 50 MG TAB PO PRN (09:58)
[2019-07-16] MEDS: KETOROLAC 30 MG/ML 1 ML VIAL IVP SCH ×2 (16:56→23:05)
[2019-07-16] MEDS: metFORMIN 500 MG TAB PO SCH (20:45)
[2019-07-16] MEDS: TOPIRAMATE 100 MG TAB PO SCH (20:46)
[2019-07-16] MEDS: OXcarbazepine 300 MG TAB PO SCH (20:48)
[2019-07-16] MEDS ORDERED: MIRTAZAPINE 15 MG TAB PO SCH (21:00)
[2019-07-16] MEDS ORDERED: LISINOPRIL 10 MG TAB PO SCH (21:00)
[2019-07-17] MEDS: KETOROLAC 30 MG/ML 1 ML VIAL IVP SCH ×2 (06:18→11:16)
[2019-07-17 07:59] VITALS: RESP 18
[2019-07-17] MEDS ORDERED: PARoxetine 20 MG TAB PO SCH ×2 (09:00)
[2019-07-17] MEDS ORDERED: ARIPiprazole 10 MG TAB PO SCH (09:00)
[2019-07-17] MEDS ORDERED: ATORVASTATIN 40 MG TAB PO SCH (09:00)
[2019-07-17] MEDS: metFORMIN 500 MG TAB PO SCH (09:01)
[2019-07-17] MEDS: TOPIRAMATE 100 MG TAB PO SCH (09:02)
[2019-07-17] MEDS: OXcarbazepine 300 MG TAB PO SCH (09:03)
[2019-07-17] MEDS ORDERED: ENOXAPARIN 40 MG/0.4 ML SYRINGE SQ SCH (10:30)
[2019-07-17] MEDS ORDERED: LACTATED RINGERS 1,000 ML IV SCH (13:30)
[2019-07-17 15:24] VITALS: BP 106/69; PULSE 70; TEMP 97.6
--- NOTE | 2019-07-18 14:14 | P.HPIM ---
History of Present Illness H&P Date: 07/17/19 Chief Complaint: Bladder pressure History of presenting complaint: This is a pleasant 44-year-old patient of Dr. Melchor Rizvi. Chronic stable medical conditions include, GERD, hypertension, hyperlipidemia, polycystic ovarian syndrome, demyelinative disorder the brain, bipolar disorder. For 3-4 days patient been having uterine/pressure and in the suprapubic area. Some dys uria. Speculum straining. Subsequently the pain went on to the left flank. Patient also developed nausea and's of fevers. Presented to the ER. Urine came back infected appearing with a positive lactic acid. Received IV fluid and IV ceftriaxone in the ER. This morning feeling a bit better. 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 Review of systems: GEN.: Febrile weak and tired EYES: None HEENT: None NECK: None RESPIRATORY: None CARDIOVASCULAR: None GASTROINTESTINAL: None GENITOURINARY: As above MUSCULOSKELETAL: None LYMPHATICS: None HEMATOLOGICAL: None PSYCHIATRY: None NEUROLOGICAL: None Past medical history to include: , GERD, hypertension, hyperlipidemia, kidney stones, polycystic ovary syndrome, degenerative does of the brain, bipolar Social history: Lives with family, smokes less than half a pack a day for over 24 years ago occasionally Physical examination: VITAL SIGNS: 97.6, 91, 18, 109/69, 96% on room air GENERAL: BMI 33.4, sitting up in bed, comfortable. EYES: Pupils equal. Conjunctiva normal. HEENT: External appearance of nose and ears normal, oral cavity grossly normal. NECK: JVD not raised; masses not palpable. HEART: First and second heart sounds are normal; no edema. LUNGS: Respiratory rate normal; clear to auscultation. ABDOMEN: Soft, nontender, liver spleen not palpable, no masses palpable. PSYCH: Alert and oriented x3; mood and affect normal. NEUROLOGICAL: Cranial nerves grossly intact; no facial asymmetry, power and sensation grossly intact. LYMPHATICS: No lymph nodes palpable in the axilla and neck INVESTIGATIONS, reviewed in the clinical context: White count 10.4 hemoglobin 13.3 potassium 4.1 creatinine 0.73 Lactic acid 2.2 UA positive for leukoesterase, WBC Assessment: -Acute UTI with pyelonephritis. Patient having suprapubic pressure and left flank pain upon presentation. Patient had fever and nausea at home. Started on IV fluids and IV antibiotics in the ER. Feeling better which improved this morning. -GERD, -Hyperlipidemia -Essential hypertension -Polycystic ovary syndrome -Bipolar disorder - Plan: Patient responding well to IV ceftriaxone and IV fluids. Other medications to continue. Care was discussed with the patient. Appetite is improved since presentation. Has been out of bed into the hallway. Blood cultures pending. 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 History of Any Multi-Drug Resistant Organisms: None Reported Date of last positivie culture/infection: 05/14/17 MDRO Source:: ESBL URINE Past Surgical History: Bladder Surgery, Section, Cholecystectomy, Hysterectomy, Orthopedic Surgery, Tubal Ligation Additional Past Surgical History / Comment(s): R ovarian cystectomy, laparoscopic surgery for L ovary that had attached to the bowel, D&C, numerous lithotripsies, nephroscopies, cystoscopies and stents to ureters-none in place at this time, L robotic pyeloplasty with post op infection around kidney which then required a picc line/later removed (pt states was not MRSA), L rotator cuff repair, L wrist tendon surgery, colonoscopy Past Anesthesia/Blood Transfusion Reactions: Family History of Problems w/ Anesthesia Additional Past Anesthesia/Blood Transfusion Reaction / Comment(s): dad-hard time waking up due to enzyme problems in liver Smoking Status: Current every day smoker - Past Family History Brother(s) Family Medical History: Cancer Additional Family Medical History / Comment(s): testicular Father Family Medical History: Coronary Artery Disease (CAD), CVA/TIA, Diabetes Mellitus, Renal Disease Additional Family Medical History / Comment(s): GLAUCOMA,NEUROPATHY HAD TRIPLE CABG, at 56yrs from renal disease. Mother Family Medical History: Hyperlipidemia Additional Family Medical History / Comment(s): DDD, HAD 3 vessel CABG AGE 54. Medications and Allergies Home Medications Medication Instructions Recorded Confirmed Type Lisinopril [Zestril] 10 mg PO HS tab 08/02/17 07/16/19 Rx SUMAtriptan SUCCINATE [Imitrex] 100 mg PO DAILY PRN tab 08/02/17 07/16/19 Rx oxyCODONE-APAP 10-325MG [Percocet 1 tab PO QID PRN 08/29/17 07/16/19 History 10-325 mg] OXcarbazepine [Trileptal] 300 mg PO BID 02/05/18 07/16/19 History Mirtazapine [Remeron] 15 mg PO HS 03/12/18 07/16/19 History PARoxetine HCL [Paxil] 40 mg PO DAILY 03/12/18 07/16/19 History Topiramate [Topamax] 100 mg PO BID 03/12/18 07/16/19 History PARoxetine [Paxil] 20 mg PO DAILY 06/04/18 07/16/19 History ARIPiprazole [Abilify] 10 mg PO DAILY 07/16/19 07/16/19 History Atorvastatin [Lipitor] 40 mg PO DAILY 07/16/19 07/16/19 History Benzoyl Peroxide [Benzac AC Wash] 1 applic TOPICAL BID 07/16/19 07/16/19 History Clindamycin 1% Pledgets 1 applic TOPICAL BID 07/16/19 07/16/19 History Loratadine [Claritin] 10 mg PO DAILY 07/16/19 07/16/19 History metFORMIN HCL 1,000 mg PO BID 07/16/19 07/16/19 History Cefuroxime Axetil [Ceftin] 500 mg PO BID #14 tab 07/17/19 Rx Allergies Allergy/AdvReac Type Severity Reaction Status Date / Time bupropion HCl Allergy Rash/Hives Verified 07/16/19 07:41 [From Wellbutrin] divalproex sodium Allergy Unknown Verified 07/16/19 07:41 [From Depakote] fentanyl Allergy Swelling Verified 07/16/19 07:41 Iodinated Contrast Media Allergy Anaphylaxis Verified 07/16/19 07:41 [Iodinated Contrast Media - IV Dye] orange juice [Pine] Allergy Rash/Hives Verified 07/16/19 07:41 Sulfa (Sulfonamide Allergy Rash/Hives Verified 07/16/19 07:41 Antibiotics) Penicillins AdvReac Nausea & Verified 07/16/19 07:41 Vomiting Physical Exam Vitals: Vital Signs Temp Pulse Resp BP BP Pulse Ox 07/17/19 07:05 98.0 F 68 18 94/61 97 07/17/19 00:17 97.8 F 84 17 104/70 99 07/17/19 00:04 18 07/16/19 19:12 97.6 F 74 97/61 96 07/16/19 16:00 98 F 79 18 96/64 98 07/16/19 10:36 97.4 F L 79 16 106/72 100 07/16/19 10:32 98.2 F Intake and Output 07/16/19 07/17/19 07/17/19 22:59 06:59 14:59 Intake Total 480 Balance 480 Intake: Oral 480 Other: Voiding Method Toilet Toilet Toilet # Voids 1 Results CBC & Chem 7: 07/16/19 08:05 07/16/19 08:05 Thrombosis Risk Factor Assmnt - Choose All That Apply Any of the Below Risk Factors Present?: Yes Each Factor Represents 1 point: Age 41-60 years, Obesity (BMI >25) Other Risk Factors: No Other congenital or acquired thrombophilia - If yes, enter type in comment: No Thrombosis Risk Factor Assessment Total Risk Factor Score: 2 Thrombosis Risk Factor Assessment Level: Low Risk
--- NOTE | 2019-07-18 14:18 | P.DS ---
Providers Date of admission: 07/16/19 10:04 Expected date of discharge: 07/17/19 Attending physician: Bernardo Zhang Primary care physician: [facility] Course: Chief Complaint: Bladder pressure Hospital course: This is a pleasant 44-year-old patient of Dr. Melchor Rizvi. Chronic stable medical conditions include, GERD, hypertension, hyperlipidemia, polycystic ovarian syndrome, demyelinative disorder the brain, bipolar disorder. For 3-4 days patient been having uterine/pressure and in the suprapubic area. Some dysuria. Speculum straining. Subsequently the pain went on to the left flank. Patient also developed nausea and's of fevers. Presented to the ER. Urine came back infected appearing with a positive lactic acid. Received IV fluid and IV ceftriaxone in the ER. This morning feeling a bit better. 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 Responded well to IV ceftriaxone and IV fluids. Much improved before discharge. Care was discussed with the patient. Physical examination: VITAL SIGNS: 97.4, 79, 16, 106/72, 100% on room air GENERAL: Sitting up on the bed, comfortable. EYES: Pupils equal. Conjunctiva normal. HEENT: External appearance of nose and ears normal, oral cavity grossly normal. NECK: JVD not raised; masses not palpable. HEART: First and second heart sounds are normal; no edema. LUNGS: Respiratory rate normal; clear to auscultation. ABDOMEN: Soft, nontender, liver spleen not palpable, no masses palpable. PSYCH: Alert and oriented x3; mood and affect normal. INVESTIGATIONS, reviewed in the clinical context: White count 10.4 hemoglobin 13.3 potassium 4.1 creatinine 0.73 Lactic acid 2.2 UA positive for leukoesterase, WBC Assessment: -Acute UTI with left-sided pyelonephritis. -GERD, -Hyperlipidemia -Essential hypertension -Polycystic ovary syndrome -Bipolar disorder Disposition: Home Patient Condition at Discharge: Stable Plan - Discharge Summary Discharge Rx Participant: No New Discharge Prescriptions: New Cefuroxime Axetil [Ceftin] 500 mg PO BID #14 tab Continue Lisinopril [Zestril] 10 mg PO HS tab SUMAtriptan SUCCINATE [Imitrex] 100 mg PO DAILY PRN tab PRN Reason: Migraine Headache oxyCODONE-APAP 10-325MG [Percocet 10-325 mg] 1 tab PO QID PRN PRN Reason: Pain OXcarbazepine [Trileptal] 300 mg PO BID Topiramate [Topamax] 100 mg PO BID PARoxetine HCL [Paxil] 40 mg PO DAILY Mirtazapine [Remeron] 15 mg PO HS PARoxetine [Paxil] 20 mg PO DAILY Atorvastatin [Lipitor] 40 mg PO DAILY metFORMIN HCL 1,000 mg PO BID ARIPiprazole [Abilify] 10 mg PO DAILY Clindamycin 1% Pledgets 1 applic TOPICAL BID Benzoyl Peroxide [Benzac AC Wash] 1 applic TOPICAL BID Loratadine [Claritin] 10 mg PO DAILY Discontinued Cephalexin [Keflex] 500 mg PO Q6HR #40 cap Discharge Medication List Lisinopril [Zestril] 10 mg PO HS tab 08/02/17 [Rx] SUMAtriptan SUCCINATE [Imitrex] 100 mg PO DAILY PRN tab 08/02/17 [Rx] oxyCODONE-APAP 10-325MG [Percocet 10-325 mg] 1 tab PO QID PRN 08/29/17 [History] OXcarbazepine [Trileptal] 300 mg PO BID 02/05/18 [History] Mirtazapine [Remeron] 15 mg PO HS 03/12/18 [History] PARoxetine HCL [Paxil] 40 mg PO DAILY 03/12/18 [History] Topiramate [Topamax] 100 mg PO BID 03/12/18 [History] PARoxetine [Paxil] 20 mg PO DAILY 06/04/18 [History] ARIPiprazole [Abilify] 10 mg PO DAILY 07/16/19 [History] Atorvastatin [Lipitor] 40 mg PO DAILY 07/16/19 [History] Benzoyl Peroxide [Benzac AC Wash] 1 applic TOPICAL BID 07/16/19 [History] Clindamycin 1% Pledgets 1 applic TOPICAL BID 07/16/19 [History] Loratadine [Claritin] 10 mg PO DAILY 07/16/19 [History] metFORMIN HCL 1,000 mg PO BID 07/16/19 [History] Cefuroxime Axetil [Ceftin] 500 mg PO BID #14 tab 07/17/19 [Rx] Follow up Appointment(s)/Referral(s): Melchor Stevens MD [Primary Care Provider] - 07/18/19 11:00 am Patient Instructions/Handouts: Urinary Tract Infection in Women (DC), Kidney Infection (DC) Discharge Disposition: HOME SELF-CARE
== END 2019-07-17 18:34 | disposition home or self-care (01) ==
LOC: EC 07:39 → 1SOBS 10:04
PROVIDERS: ADMIT Hospitalist; ATTEND Hospitalist
DX: N39.0 Urinary tract infection, site not specified (principal); N10 Acute pyelonephritis; K21.9 Gastro-esophageal reflux disease without esophagitis; E78.5 Hyperlipidemia, unspecified; E28.2 Polycystic ovarian syndrome; F31.9 Bipolar disorder, unspecified; I10 Essential (primary) hypertension; G43.909 Migraine, unspecified, not intractable, without status migrainosus; E11.9 Type 2 diabetes mellitus without complications; R55 Syncope and collapse; H57.9 Unspecified disorder of eye and adnexa; N28.9 Disorder of kidney and ureter, unspecified; H52.203 Unspecified astigmatism, bilateral; Z79.899 Other long term (current) drug therapy; Z79.891 Long term (current) use of opiate analgesic; Z79.84 Long term (current) use of oral hypoglycemic drugs; Z79.2 Long term (current) use of antibiotics; Z88.5 Allergy status to narcotic agent; Z88.0 Allergy status to penicillin; Z91.041 Radiographic dye allergy status; Z88.2 Allergy status to sulfonamides; Z88.8 Allergy status to other drugs, medicaments and biological substances; Z87.442 Personal history of urinary calculi; F17.200 Nicotine dependence, unspecified, uncomplicated; Z87.440 Personal history of urinary (tract) infections; K52.9 Noninfective gastroenteritis and colitis, unspecified; M26.609 Unspecified temporomandibular joint disorder, unspecified side; Z83.3 Family history of diabetes mellitus; Z82.49 Family history of ischemic heart disease and other diseases of the circulatory system
CPT/HCPCS: 96366; 96372; 96375 ×2; 96376 ×2; 96361; 96365; 99284; 36415; 80048; 83605; 85025; 81001; 87040; G0378 ×2; J2270; J1650; J0696 ×2; J1885 ×2; J1170

== ENCOUNTER 2019-08-25 16:17 | Emergency (ER) | payer OTHER ==
[2019-08-25 17:19] VITALS: RESP 18
[2019-08-25] MEDS ORDERED: SODIUM CHLORIDE 0.9% 1,000 ML IV ONE (18:04)
[2019-08-25] MEDS ORDERED: METOCLOPRAMIDE 5 MG/ML 2 ML VIAL IVP STA (18:04)
[2019-08-25] MEDS ORDERED: MORPHINE SULFATE 4 MG/ML SYRINGE IV STA ×2 (18:05→20:01)
--- NOTE | 2019-08-25 18:10 | ED ---
General Adult HPI - General Chief complaint: Abdominal Pain Stated complaint: possible kidney stones Time Seen by Provider: 08/25/19 17:50 Source: patient, RN notes reviewed, old records reviewed Mode of arrival: ambulatory Limitations: no limitations - History of Present Illness Initial comments: 44-year-old female patient past history: Renal calculi, hysterectomy, type 2 diabetes presents to ED for chief complaint of left posterior flank pain. Patient reports that this began yesterday. Reports that feels similar to kidney stones in the past. Reports nausea without emesis. States that she attempted to get her urologist, she was unable. Reports that she wanted to her primary care office 2 times today and was given Toradol and Zofran. States that the pain is her primary reason she comes in. Denies any other complaints. Systemic: Pt denies fatigue, fever/chills, rash. Pt denies weakness, night sweats, weight loss. Neuro: Pt denies headache, visual disturbances, syncope or pre-syncope. HEENT: Pt denies ocular discharge or irritation, otalgia, rhinorrhea, pharyngitis or notable lymphadenopathy. Cardiopulmonary: Pt denies chest pain, SOB, heart palpitations, dyspnea on exertion. Abdominal/GI: Pt denies abdominal pain, n/v/d. : Pt denies burning w/ urination, frequency/urgency. Denies new onset urinary or bowel incontinence. MSK: Pt denies myalgia, loss of strength or function in extremities. Neuro: Pt denies new onset weakness, paresthesias. - Related Data Home Medications Medication Instructions Recorded Confirmed oxyCODONE-APAP 10-325MG [Percocet 1 tab PO QID PRN 08/29/17 07/16/19 10-325 mg] OXcarbazepine [Trileptal] 300 mg PO BID 02/05/18 07/16/19 Mirtazapine [Remeron] 15 mg PO HS 03/12/18 07/16/19 PARoxetine HCL [Paxil] 40 mg PO DAILY 03/12/18 07/16/19 Topiramate [Topamax] 100 mg PO BID 03/12/18 07/16/19 PARoxetine [Paxil] 20 mg PO DAILY 06/04/18 07/16/19 ARIPiprazole [Abilify] 10 mg PO DAILY 07/16/19 07/16/19 Atorvastatin [Lipitor] 40 mg PO DAILY 07/16/19 07/16/19 Benzoyl Peroxide [Benzac AC Wash] 1 applic TOPICAL BID 07/16/19 07/16/19 Clindamycin 1% Pledgets 1 applic TOPICAL BID 07/16/19 07/16/19 Loratadine [Claritin] 10 mg PO DAILY 07/16/19 07/16/19 metFORMIN HCL 1,000 mg PO BID 07/16/19 07/16/19 Previous Rx's Medication Instructions Recorded Lisinopril [Zestril] 10 mg PO HS tab 08/02/17 SUMAtriptan SUCCINATE [Imitrex] 100 mg PO DAILY PRN tab 08/02/17 Cefuroxime Axetil [Ceftin] 500 mg PO BID #14 tab 07/17/19 Cephalexin [Keflex] 500 mg PO Q6HR 10 Days #40 cap 08/25/19 Allergies Allergy/AdvReac Type Severity Reaction Status Date / Time bupropion HCl Allergy Rash/Hives Verified 08/25/19 17:19 [From Wellbutrin] divalproex sodium Allergy Unknown Verified 08/25/19 17:19 [From Depakote] fentanyl Allergy Swelling Verified 08/25/19 17:19 Iodinated Contrast Media Allergy Anaphylaxis Verified 08/25/19 17:19 [Iodinated Contrast Media - IV Dye] orange juice [[place]] Allergy Rash/Hives Verified 08/25/19 17:19 Sulfa (Sulfonamide Allergy Rash/Hives Verified 08/25/19 17:19 Antibiotics) Penicillins AdvReac Nausea & Verified 08/25/19 17:19 Vomiting Review of Systems ROS Statement: Those systems with pertinent positive or pertinent negative responses have been documented in the HPI. ROS Other: All systems not noted in ROS Statement are negative. 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 History of Any Multi-Drug Resistant Organisms: None Reported Date of last positivie culture/infection: 05/14/17 MDRO Source:: ESBL URINE Past Surgical History: Bladder Surgery, Section, Cholecystectomy, Hysterectomy, Orthopedic Surgery, Tubal Ligation Additional Past Surgical History / Comment(s): R ovarian cystectomy, l aparoscopic surgery for L ovary that had attached to the bowel, D&C, numerous lithotripsies, nephroscopies, cystoscopies and stents to ureters-none in place at this time, L robotic pyeloplasty with post op infection around kidney which then required a picc line/later removed (pt states was not MRSA), L rotator cuff repair, L wrist tendon surgery, colonoscopy Past Anesthesia/Blood Transfusion Reactions: Family History of Problems w/ Anesthesia Additional Past Anesthesia/Blood Transfusion Reaction / Comment(s): dad-hard time waking up due to enzyme problems in liver Past Psychological History: ADD/ADHD, Anxiety, Bipolar, Depression, PTSD Smoking Status: Current every day smoker - Past Family History Brother(s) Family Medical History: Cancer Additional Family Medical History / Comment(s): testicular Father Family Medical History: Coronary Artery Disease (CAD), CVA/TIA, Diabetes Mellitus, Renal Disease Additional Family Medical History / Comment(s): GLAUCOMA,NEUROPATHY HAD TRIPLE CABG, at 56yrs from renal disease. Mother Family Medical History: Hyperlipidemia Additional Family Medical History / Comment(s): DDD, HAD 3 vessel CABG AGE 54. General Exam - General Exam Comments Initial Comments: Constitutional: NAD, AOX3, Pt has pleasant affect. HEENT: NC/AT, trachea midline, neck supple, no lymphadenopathy. Posterior pharynx non erythematous, without exudates. External ears appear normal, without discharge. Mucous membranes moist. Eyes PERRLA, EOM intact. There is no scleral icterus. No pallor noted. Cardiopulmonary: RRR, no murmurs, rubs or gallops, no JVD noted. Lungs CTAB in anterior and posterior guillen. No peripheral edema. Abdominal exam: Abdomen soft and non-distended. Abdomen non-tender to palpation in all 4 quadrants. Bowel sounds active in LLQ. No hepatosplenomegaly. No ecchymosis. Left flank mild tenderness to palpation. Neuro: CN II-XII grossly intact. No nuchal rigidity. No raccon eyes, no hernandez sign, no hemotympanum. No cervical spinal tenderness. MSK: No posterior calf tenderness bilaterally, homans sign negative bilaterally. Posterior tibialis and radial pulse +2 bilaterally. Sensation intact in upper and lower extremities. Full active ROM in upper and lower extremities, 5/5 stregnth. Limitations: no limitations Course Vital Signs 08/25/19 08/25/19 17:16 19:33 Temperature 97.9 F Pulse Rate 90 63 Respiratory 18 18 Rate Blood Pressure 123/86 120/74 O2 Sat by Pulse 100 99 Oximetry Medical Decision Making - Medical Decision Making 44-year-old female patient past history: Renal calculi, hysterectomy, type 2 diabetes presents to ED for chief complaint of left posterior flank pain. Patient reports that this began yesterday. Reports that feels similar to kidney stones in the past. Reports nausea without emesis. States that she attempted to get her urologist, she was unable. Reports that she wanted to her primary care office 2 times today and was given Toradol and Zofran. States that the pain is her primary reason she comes in. Denies any other complaints. Patient does have stable, afebrile. Physical exam is with left lower flank region mildly tender to palpation. No anterior abdominal tenderness. Laboratory investigations revealed a leukocytosis of 12.4, UA displayed. A 182 red blood cells, 95 white cells, large leukocyte esterase. Nitrate is negative. Patient cannot be . Hysterectomy. Patient reports that she did have a small amount of dysuria. Will be treated with Keflex. Patient recently found out that her insurance is off so she is declining all imaging. Patient requests discharge will discharge and close outpatient follow-up with urologist and primary care provider. Return to ER if condition worsens. Case discussed with Dr. Linda. - Lab Data Result diagrams: 08/25/19 18:24 08/25/19 18:24 Lab Results 08/25/19 08/25/19 08/25/19 Range/Units 18:24 18:24 18:30 WBC 12.4 H (3.8-10.6) k/uL RBC 4.96 (3.80-5.40) m/uL Hgb 14.6 (11.4-16.0) gm/dL Hct 43.6 (34.0-46.0) % MCV 88.0 (80.0-100.0) fL MCH 29.4 (25.0-35.0) pg MCHC 33.4 (31.0-37.0) g/dL RDW 12.6 (11.5-15.5) % Plt Count 275 (150-450) k/uL Neutrophils % 54 % Lymphocytes % 37 % Monocytes % 5 % Eosinophils % 2 % Basophils % 0 % Neutrophils # 6.7 (1.3-7.7) k/uL Lymphocytes # 4.6 (1.0-4.8) k/uL Monocytes # 0.6 (0-1.0) k/uL Eosinophils # 0.3 (0-0.7) k/uL Basophils # 0.1 (0-0.2) k/uL Sodium 138 (137-145) mmol/L Potassium 3.8 (3.5-5.1) mmol/L Chloride 108 H (98-107) mmol/L Carbon Dioxide 20 L (22-30) mmol/L Anion Gap 10 mmol/L BUN 6 L (7-17) mg/dL Creatinine 0.68 (0.52-1.04) mg/dL Est GFR (CKD-EPI)AfAm >90 (>60 ml/min/1.73 sqM) Est GFR (CKD-EPI)NonAf >90 (>60 ml/min/1.73 sqM) Glucose 167 H (74-99) mg/dL Calcium 9.3 (8.4-10.2) mg/dL Total Bilirubin 0.3 (0.2-1.3) mg/dL AST 37 H (14-36) U/L ALT 28 (4-34) U/L Alkaline Phosphatase 95 (38-126) U/L Total Protein 7.1 (6.3-8.2) g/dL Albumin 4.4 (3.5-5.0) g/dL Urine Color Light Red Urine Appearance Cloudy H (Clear) Urine pH 6.0 (5.0-8.0) Ur Specific [place] 1.011 (1.001-1.035) Urine Protein Trace H (Negative) Urine Glucose (UA) Negative (Negative) Urine Ketones Negative (Negative) Urine Blood Large H (Negative) Urine Nitrite Negative (Negative) Urine Bilirubin Negative (Negative) Urine Urobilinogen <2.0 (<2.0) mg/dL Ur Leukocyte Esterase Large H (Negative) Urine RBC >182 H (0-5) /hpf Urine WBC 95 H (0-5) /hpf Ur Squamous Epith Cells 8 H (0-4) /hpf Calcium Oxalate Crystal Rare H (None) /hpf Amorphous Sediment Occasional H (None) /hpf Disposition Clinical Impression: Flank pain, UTI (urinary tract infection) Disposition: HOME SELF-CARE Condition: Stable Instructions (If sedation given, give patient instructions): Urinary Tract Infection in Women (ED), Flank Pain (ED) Additional Instructions: Taken antibiotics as directed. Follow-up with primary care provider tomorrow. Follow-up with urologist tomorrow. Return to ER if condition worsens. Prescriptions: Cephalexin [Keflex] 500 mg PO Q6HR 10 Days #40 cap Is patient prescribed a controlled substance at d/c from ED?: No Referrals: Melchor Stevens MD [Primary Care Provider] - 1-2 days Malachi Ortega MD [STAFF PHYSICIAN] - 1-2 days
[2019-08-25 18:51] LABS: Basophils # (A) 0.1 k/uL (0-0.2); Basophils % (A) 0 %; Eosinophils # (A) 0.3 k/uL (0-0.7); Eosinophils % (A) 2 %; HCT 43.6 % (34.0-46.0); HGB 14.6 gm/dL (11.4-16.0); Lymphocytes # (A) 4.6 k/uL (1.0-4.8); Lymphocytes % (A) 37 %; MCH 29.4 pg (25.0-35.0); MCHC 33.4 g/dL (31.0-37.0); Mean Platelet Volume 7.5; Monocytes # (A) 0.6 k/uL (0-1.0); Monocytes % (A) 5 %; Neutrophils # (A) 6.7 k/uL (1.3-7.7); Neutrophils % (A) 54 %; Platelet Count 275 k/uL (150-450); RBC 4.96 m/uL (3.80-5.40); RDW 12.6 % (11.5-15.5); WBC 12.4 k/uL (3.8-10.6)
[2019-08-25 18:56] LABS: Amorphous Sediment,Urine Occasional /hpf; Appearance,Urine Cloudy (Clear); Bilirubin,Urine Negative (Negative); Blood,Urine Large (Negative); Calcium Oxalate Crystals,Urine Rare /hpf; Color,Urine Light Red; Glucose,Urine (UA) Negative (Negative); Ketones,Urine Negative (Negative); Leukocyte Esterase,Urine Large (Negative); Nitrite,Urine Negative (Negative); Protein,Urine Trace (Negative); RBC,Urine >182 /hpf (0-5); Specific Gravity,Urine 1.011 (1.001-1.035); Squamous Epithelial Cell,Urine 8 /hpf (0-4); Urobilinogen,Urine <2.0 mg/dL (<2.0); WBC,Urine 95 /hpf (0-5)
[2019-08-25 18:59] LABS: ALT 28 U/L (4-34); AST 37 U/L (14-36); African American GFR (CKD) >90 (>60 ml/min/1.73 sqM); Albumin 4.4 g/dL (3.5-5.0); Alkaline Phosphatase 95 U/L (38-126); Anion Gap 10 mmol/L; Blood Urea Nitrogen 6 mg/dL (7-17); Calcium 9.3 mg/dL (8.4-10.2); Carbon Dioxide 20 mmol/L (22-30); Chloride 108 mmol/L (98-107); Glucose 167 mg/dL (74-99); Non-African American GFR(CKD) >90 (>60 ml/min/1.73 sqM); Potassium 3.8 mmol/L (3.5-5.1); Sodium 138 mmol/L (137-145); Total Bilirubin 0.3 mg/dL (0.2-1.3); Total Protein 7.1 g/dL (6.3-8.2)
[2019-08-25] MEDS ORDERED: cefTRIAXone IN SWFI 1,000 MG/10 ML SYRINGE IVP STA (19:58)
[2019-08-25] MEDS ORDERED: CEPHALEXIN 500MG STARTER PACK 4 CAP BTL PO STA (20:00)
[2019-08-25 20:38] VITALS: BP 100/65; PULSE 82; TEMP 98.3
== END 2019-08-25 20:30 | disposition home or self-care (01) ==
LOC: EC 16:17
DX: N39.0 Urinary tract infection, site not specified (principal); D72.829 Elevated white blood cell count, unspecified; R11.0 Nausea; E11.9 Type 2 diabetes mellitus without complications; E78.5 Hyperlipidemia, unspecified; F41.9 Anxiety disorder, unspecified; F32.9 Major depressive disorder, single episode, unspecified; F43.10 Post-traumatic stress disorder, unspecified; F17.200 Nicotine dependence, unspecified, uncomplicated; Z98.890 Other specified postprocedural states; Z87.442 Personal history of urinary calculi; Z87.448 Personal history of other diseases of urinary system; Z90.49 Acquired absence of other specified parts of digestive tract; Z90.710 Acquired absence of both cervix and uterus; Z98.51 Tubal ligation status; Z79.84 Long term (current) use of oral hypoglycemic drugs; Z79.899 Other long term (current) drug therapy; Z88.8 Allergy status to other drugs, medicaments and biological substances; Z88.5 Allergy status to narcotic agent; Z91.041 Radiographic dye allergy status; Z91.018 Allergy to other foods; Z88.2 Allergy status to sulfonamides; Z88.0 Allergy status to penicillin
CPT/HCPCS: 99284; 96374; 96375 ×2; 96376; 96361; 36415; 80053; 85025; 81001; 87086; J2270; J2765; J0696

== ENCOUNTER 2019-08-30 00:27 | Emergency (ER) | payer OTHER ==
[2019-08-30 00:45] VITALS: RESP 18
[2019-08-30] MEDS ORDERED: ONDANSETRON 4 MG/2 ML VIAL IVP STA (01:15)
[2019-08-30] MEDS ORDERED: SODIUM CHLORIDE 0.9% 1,000 ML IV ONE (01:15)
--- NOTE | 2019-08-30 01:32 | ED ---
General Adult HPI - General Chief complaint: Urogenital Stated complaint: Kidney stones Time Seen by Provider: 08/30/19 00:50 Source: patient Mode of arrival: ambulatory Limitations: no limitations - History of Present Illness Initial comments: Patient is a 44-year-old female with history of recurrent kidney stones presenting to emergency Department with a chief complaint of a kidney stone. States she was recently diagnosed with a kidney stone and started on Keflex for a urinary tract infection as well. States she was scheduled to see her urologis t on but department on was rescheduled for next week. States now she continues to have the pain with some nausea and multiple episodes of nonbilious, nonbloody vomiting. Denies any fevers or chills. Denies any significant flank pain at this time. Denies any vaginal bleeding or discharge. Does report some hematuria but denies any dysuria. Denies hematochezia or melena. Denies consti pation or diarrhea. - Related Data Home Medications Medication Instructions Recorded Confirmed oxyCODONE-APAP 10-325MG [Percocet 1 tab PO QID PRN 08/29/17 08/30/19 10-325 mg] OXcarbazepine [Trileptal] 300 mg PO BID 02/05/18 08/30/19 Mirtazapine [Remeron] 15 mg PO HS 03/12/18 08/30/19 PARoxetine HCL [Paxil] 40 mg PO DAILY 03/12/18 08/30/19 Topiramate [Topamax] 100 mg PO BID 03/12/18 08/30/19 PARoxetine [Paxil] 20 mg PO DAILY 06/04/18 08/30/19 ARIPiprazole [Abilify] 10 mg PO DAILY 07/16/19 08/30/19 Atorvastatin [Lipitor] 40 mg PO DAILY 07/16/19 08/30/19 Benzoyl Peroxide [Benzac AC Wash] 1 applic TOPICAL BID 07/16/19 08/30/19 Clindamycin 1% Pledgets 1 applic TOPICAL BID 07/16/19 08/30/19 Loratadine [Claritin] 10 mg PO DAILY 07/16/19 08/30/19 metFORMIN HCL 1,000 mg PO BID 07/16/19 08/30/19 Previous Rx's Medication Instructions Recorded Lisinopril [Zestril] 10 mg PO HS tab 08/02/17 SUMAtriptan SUCCINATE [Imitrex] 100 mg PO DAILY PRN tab 08/02/17 Cefuroxime Axetil [Ceftin] 500 mg PO BID #14 tab 07/17/19 Allergies Allergy/AdvReac Type Severity Reaction Status Date / Time bupropion HCl Allergy Rash/Hives Verified 08/30/19 00:45 [From Wellbutrin] divalproex sodium Allergy Unknown Verified 08/30/19 00:45 [From Depakote] fentanyl Allergy Swelling Verified 08/30/19 00:45 Iodinated Contrast Media Allergy Anaphylaxis Verified 08/30/19 00:45 [Iodinated Contrast Media - IV Dye] orange juice [[place]] Allergy Rash/Hives Verified 08/30/19 00:45 Sulfa (Sulfonamide Allergy Rash/Hives Verified 08/30/19 00:45 Antibiotics) Penicillins AdvReac Nausea & Verified 08/30/19 00:45 Vomiting Review of Systems ROS Statement: Those systems with pertinent positive or pertinent negative responses have been documented in the HPI. ROS Other: All systems not noted in ROS Statement are negative. 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 History of Any Multi-Drug Resistant Organisms: None Reported Date of last positivie culture/infection: 05/14/17 MDRO Source:: ESBL URINE Past Surgical History: Bladder Surgery, Section, Cholecystectomy, Hysterectomy, Orthopedic Surgery, Tubal Ligation Additional Past Surgical History / Comment(s): R ovarian cystectomy, laparoscopic surgery for L ovary that had attached to the bowel, D&C, numerous lithotripsies, nephroscopies, cystoscopies and stents to ureters-none in place at this time, L robotic pyeloplasty with post op infection around kidney which then required a picc line/later removed (pt states was not MRSA), L rotator cuff repair, L wrist tendon surgery, colonoscopy Past Anesthesia/Blood Transfusion Reactions: Family History of Problems w/ Anesthesia Additional Past Anesthesia/Blood Transfusion Reaction / Comment(s): dad-hard ti me waking up due to enzyme problems in liver Past Psychological History: ADD/ADHD, Anxiety, Bipolar, Depression, PTSD Smoking Status: Current every day smoker - Past Family History Brother(s) Family Medical History: Cancer Additional Family Medical History / Comment(s): testicular Father Family Medical History: Coronary Artery Disease (CAD), CVA/TIA, Diabetes Mellitus, Renal Disease Additional Family Medical History / Comment(s): GLAUCOMA,NEUROPATHY HAD TRIPLE CABG, at 56yrs from renal disease. Mother Family Medical History: Hyperlipidemia Additional Family Medical History / Comment(s): DDD, HAD 3 vessel CABG AGE 54. General Exam Limitations: no limitations General appearance: alert, in no apparent distress Head exam: Present: atraumatic, normocephalic, normal inspection Eye exam: Present: normal appearance Pupils: Present: normal accommodation ENT exam: Present: normal exam Neck exam: Present: normal inspection, full ROM Respiratory exam: Present: normal lung sounds bilaterally Cardiovascular Exam: Present: regular rate, normal rhythm, normal heart sounds GI/Abdominal exam: Present: soft, tenderness (Mild left flank pain). Absent: distended Extremities exam: Present: normal inspection, full ROM Back exam: Present: normal inspection, full ROM, CVA tenderness (L) Neurological exam: Present: alert, oriented X3 Psychiatric exam: Present: normal affect, normal mood Skin exam: Present: warm, dry, intact, normal color Course Vital Signs 08/30/19 00:42 Temperature 97.7 F Pulse Rate 91 Respiratory 18 Rate Blood Pressure 100/67 O2 Sat by Pulse 97 Oximetry Medical Decision Making - Medical Decision Making Patient is 44-year-old female with history recurrent kidney stones presenting to emergency Department with chief complaint of kidney stone. Examination patient does appear to have left CVA tenderness with left flank pain. Patient did have some nausea or vomiting. Patient was given Toradol, Zofran and fluids. Reevaluation patient reports the symptoms have greatly improved. Her vitals are stable. Laboratory results do indicate red blood cells and decrease of her blood cells compared to last urinalysis. Negative ketones. Patient does have a mild elevation in white blood cells which are suspect secondary to the vomiting. Patient advised to continue using the Keflex. She was advised to continue to follow-up with her urologist. patient already takes flomax at home, Return parameters were thoroughly discussed with patient was understanding and agreeable. Case discussed with physician. - Lab Data Result diagrams: 08/30/19 01:31 08/30/19 01:31 Lab Results 08/30/19 08/30/19 08/30/19 Range/Units 01:31 01:31 01:31 WBC 12.5 H (3.8-10.6) k/uL RBC 4.84 (3.80-5.40) m/uL Hgb 14.3 (11.4-16.0) gm/dL Hct 42.0 (34.0-46.0) % MCV 86.8 (80.0-100.0) fL MCH 29.4 (25.0-35.0) pg MCHC 33.9 (31.0-37.0) g/dL RDW 12.5 (11.5-15.5) % Plt Count 265 (150-450) k/uL Neutrophils % 57 % Lymphocytes % 36 % Monocytes % 4 % Eosinophils % 2 % Basophils % 1 % Neutrophils # 7.1 (1.3-7.7) k/uL Lymphocytes # 4.5 (1.0-4.8) k/uL Monocytes # 0.5 (0-1.0) k/uL Eosinophils # 0.2 (0-0.7) k/uL Basophils # 0.1 (0-0.2) k/uL Sodium 137 (137-145) mmol/L Potassium 3.9 (3.5-5.1) mmol/L Chloride 107 (98-107) mmol/L Carbon Dioxide 18 L (22-30) mmol/L Anion Gap 12 mmol/L BUN 10 (7-17) mg/dL Creatinine 0.70 (0.52-1.04) mg/dL Est GFR (CKD-EPI)AfAm >90 (>60 ml/min/1.73 sqM) Est GFR (CKD-EPI)NonAf >90 (>60 ml/min/1.73 sqM) Glucose 189 H (74-99) mg/dL Calcium 9.5 (8.4-10.2) mg/dL Total Bilirubin 0.4 (0.2-1.3) mg/dL AST 30 (14-36) U/L ALT 24 (4-34) U/L Alkaline Phosphatase 91 (38-126) U/L Total Protein 6.8 (6.3-8.2) g/dL Albumin 4.2 (3.5-5.0) g/dL Urine Color Yellow Urine Appearance Cloudy H (Clear) Urine pH 6.0 (5.0-8.0) Ur Specific [place] 1.014 (1.001-1.035) Urine Protein Trace H (Negative) Urine Glucose (UA) Negative (Negative) Urine Ketones Negative (Negative) Urine Blood Large H (Negative) Urine Nitrite Negative (Negative) Urine Bilirubin Negative (Negative) Urine Urobilinogen <2.0 (<2.0) mg/dL Ur Leukocyte Esterase Large H (Negative) Urine RBC >182 H (0-5) /hpf Urine WBC 62 H (0-5) /hpf Ur Squamous Epith Cells 11 H (0-4) /hpf Urine Bacteria Occasional H (None) /hpf Urine Mucus Rare H (None) /hpf Disposition Clinical Impression: Kidney stone, Flank pain, Urinary tract infection Disposition: HOME SELF-CARE Condition: Stable Instructions (If sedation given, give patient instructions): Kidney Stones (ED) Additional Instructions: Follow-up with the urologist. Take prescribed medication as directed. Return to emergency department if symptoms worsen. Is patient prescribed a controlled substance at d/c from ED?: No Referrals: Melchor Stevens MD [Primary Care Provider] - 1-2 days Time of Disposition: 02:36
[2019-08-30 01:47] LABS: Basophils # (A) 0.1 k/uL (0-0.2); Basophils % (A) 1 %; Eosinophils # (A) 0.2 k/uL (0-0.7); Eosinophils % (A) 2 %; HGB 14.3 gm/dL (11.4-16.0); Lymphocytes # (A) 4.5 k/uL (1.0-4.8); Lymphocytes % (A) 36 %; MCH 29.4 pg (25.0-35.0); MCHC 33.9 g/dL (31.0-37.0); MCV 86.8 fL (80.0-100.0); Mean Platelet Volume 7.6; Monocytes # (A) 0.5 k/uL (0-1.0); Monocytes % (A) 4 %; Neutrophils # (A) 7.1 k/uL (1.3-7.7); Neutrophils % (A) 57 %; Platelet Count 265 k/uL (150-450); RBC 4.84 m/uL (3.80-5.40); RDW 12.5 % (11.5-15.5); WBC 12.5 k/uL (3.8-10.6)
[2019-08-30 01:51] LABS: Appearance,Urine Cloudy (Clear); Bacteria,Urine Occasional /hpf; Bilirubin,Urine Negative (Negative); Blood,Urine Large (Negative); Color,Urine Yellow; Glucose,Urine (UA) Negative (Negative); Ketones,Urine Negative (Negative); Leukocyte Esterase,Urine Large (Negative); Mucus,Urine Rare /hpf; Nitrite,Urine Negative (Negative); Protein,Urine Trace (Negative); RBC,Urine >182 /hpf (0-5); Specific Gravity,Urine 1.014 (1.001-1.035); Squamous Epithelial Cell,Urine 11 /hpf (0-4); Urobilinogen,Urine <2.0 mg/dL (<2.0); WBC,Urine 62 /hpf (0-5)
[2019-08-30] MEDS ORDERED: KETOROLAC 30 MG/ML 1 ML VIAL IVP STA (01:54)
[2019-08-30] MEDS ORDERED: FAMOTIDINE 20 MG/2 ML VIAL IV STA (01:55)
[2019-08-30 02:02] LABS: ALT 24 U/L (4-34); AST 30 U/L (14-36); African American GFR (CKD) >90 (>60 ml/min/1.73 sqM); Albumin 4.2 g/dL (3.5-5.0); Alkaline Phosphatase 91 U/L (38-126); Anion Gap 12 mmol/L; Blood Urea Nitrogen 10 mg/dL (7-17); Calcium 9.5 mg/dL (8.4-10.2); Carbon Dioxide 18 mmol/L (22-30); Chloride 107 mmol/L (98-107); Glucose 189 mg/dL (74-99); Non-African American GFR(CKD) >90 (>60 ml/min/1.73 sqM); Potassium 3.9 mmol/L (3.5-5.1); Sodium 137 mmol/L (137-145); Total Bilirubin 0.4 mg/dL (0.2-1.3); Total Protein 6.8 g/dL (6.3-8.2)
[2019-08-30] MEDS ORDERED: ACET/COD 300 MG/30 MG STARTER PACK 6 TAB BTL PO STA (02:27)
[2019-08-30 02:51] VITALS: BP 142/78; PULSE 88; TEMP 98
== END 2019-08-30 02:50 | disposition home or self-care (01) ==
LOC: EC 00:27
DX: N20.0 Calculus of kidney (principal); N39.0 Urinary tract infection, site not specified; E11.9 Type 2 diabetes mellitus without complications; I10 Essential (primary) hypertension; E78.5 Hyperlipidemia, unspecified; F41.9 Anxiety disorder, unspecified; F31.9 Bipolar disorder, unspecified; F90.9 Attention-deficit hyperactivity disorder, unspecified type; F17.200 Nicotine dependence, unspecified, uncomplicated; Z79.84 Long term (current) use of oral hypoglycemic drugs; Z79.899 Other long term (current) drug therapy; Z88.8 Allergy status to other drugs, medicaments and biological substances; Z91.041 Radiographic dye allergy status; Z91.018 Allergy to other foods; Z88.2 Allergy status to sulfonamides; Z88.0 Allergy status to penicillin
CPT/HCPCS: 36415; 80053; 85025; 81001; 99283; 96374; 96375 ×2; 96361; J2405; J1885

== ENCOUNTER 2019-09-01 00:24 | Emergency (ER) | payer OTHER ==
[2019-09-01 00:28] VITALS: RESP 18; TEMP 97.3
[2019-09-01] MEDS ORDERED: HYDROmorphone 1 MG/ML 1 ML SYRINGE IVP STA ×2 (01:20→02:27)
[2019-09-01] MEDS ORDERED: SODIUM CHLORIDE 0.9% 1,000 ML IV STA (01:20)
[2019-09-01] MEDS ORDERED: ONDANSETRON 4 MG/2 ML VIAL IVP STA (01:20)
--- NOTE | 2019-09-01 01:33 | XR ---
EXAMINATION TYPE: XR KUB DATE OF EXAM: 09/01/2019 COMPARISON: 07/15/2019 HISTORY: Pain TECHNIQUE: 2 views upright FINDINGS: There is no sign of intestinal obstruction or pneumoperitoneum. Fecal pattern is normal. Th ere are clips from cholecystectomy. Lung bases are clear. There is no evidence of a mass. There is sl ight lumbar levoscoliosis. There are no pathologic calcifications over the kidneys. IMPRESSION: Nonacute abdomen.
[2019-09-01 01:34] LABS: Basophils # (A) 0.1 k/uL (0-0.2); Basophils % (A) 1 %; Eosinophils # (A) 0.2 k/uL (0-0.7); Eosinophils % (A) 2 %; HGB 14.3 gm/dL (11.4-16.0); Lymphocytes # (A) 4.5 k/uL (1.0-4.8); Lymphocytes % (A) 36 %; MCH 29.6 pg (25.0-35.0); MCHC 34.1 g/dL (31.0-37.0); MCV 86.7 fL (80.0-100.0); Mean Platelet Volume 7.5; Monocytes # (A) 0.7 k/uL (0-1.0); Monocytes % (A) 6 %; Neutrophils # (A) 6.8 k/uL (1.3-7.7); Neutrophils % (A) 54 %; Platelet Count 281 k/uL (150-450); RBC 4.84 m/uL (3.80-5.40); RDW 12.6 % (11.5-15.5); WBC 12.5 k/uL (3.8-10.6)
[2019-09-01] MEDS ORDERED: FLUCONAZOLE 100 MG TAB PO ONE (01:45)
[2019-09-01 01:46] LABS: ALT 24 U/L (4-34); AST 25 U/L (14-36); African American GFR (CKD) >90 (>60 ml/min/1.73 sqM); Albumin 4.3 g/dL (3.5-5.0); Alkaline Phosphatase 88 U/L (38-126); Amylase 56 U/L (30-110); Anion Gap 10 mmol/L; Blood Urea Nitrogen 11 mg/dL (7-17); Calcium 9.7 mg/dL (8.4-10.2); Carbon Dioxide 20 mmol/L (22-30); Chloride 107 mmol/L (98-107); Glucose 191 mg/dL (74-99); Non-African American GFR(CKD) >90 (>60 ml/min/1.73 sqM); Sodium 137 mmol/L (137-145); Total Bilirubin 0.4 mg/dL (0.2-1.3); Total Protein 7.1 g/dL (6.3-8.2)
[2019-09-01 01:52] LABS: Appearance,Urine Cloudy (Clear); Bacteria,Urine Rare /hpf; Bilirubin,Urine Negative (Negative); Blood,Urine Large (Negative); Color,Urine Yellow; Glucose,Urine (UA) Negative (Negative); Ketones,Urine Negative (Negative); Leukocyte Esterase,Urine Large (Negative); Nitrite,Urine Negative (Negative); Protein,Urine Trace (Negative); RBC,Urine >182 /hpf (0-5); Specific Gravity,Urine 1.011 (1.001-1.035); Squamous Epithelial Cell,Urine 9 /hpf (0-4); Urobilinogen,Urine <2.0 mg/dL (<2.0); WBC,Urine 142 /hpf (0-5)
--- NOTE | 2019-09-01 02:24 | ED ---
General Adult HPI - General Chief complaint: Back Pain/Injury Stated complaint: Kidney Stones Time Seen by Provider: 09/01/19 00:55 Source: patient Mode of arrival: ambulatory Limitations: no limitations - History of Present Illness Initial comments: 44-year-old female patient presents to the emergency department today for evaluation of left flank pain and hematuria. Patient does have history of kidney stone and urinary tract infection. She was seen and evaluated for this on 08/30/2019 and started on antibiotics. Patient states that today her pain became out of control. States she was taking her home Percocet and Toradol without relief. She is on Flomax. She states that she has been nauseated but only vomits when the pain is at its worst. She denies any fever or chills. Patient states her symptoms are consistent with her usual kidney stone pain. Patient denies any recent rash, shortness breath, chest pain, diarrhea, constipation, back pain, numbness, tingling, dizziness, weakness, headache, visual changes, or any other complaints. - Related Data Home Medications Medication Instructions Recorded Confirmed oxyCODONE-APAP 10-325MG [Percocet 1 tab PO QID PRN 08/29/17 08/30/19 10-325 mg] OXcarbazepine [Trileptal] 300 mg PO BID 02/05/18 08/30/19 Mirtazapine [Remeron] 15 mg PO HS 03/12/18 08/30/19 PARoxetine HCL [Paxil] 40 mg PO DAILY 03/12/18 08/30/19 Topiramate [Topamax] 100 mg PO BID 03/12/18 08/30/19 PARoxetine [Paxil] 20 mg PO DAILY 06/04/18 08/30/19 ARIPiprazole [Abilify] 10 mg PO DAILY 07/16/19 08/30/19 Atorvastatin [Lipitor] 40 mg PO DAILY 07/16/19 08/30/19 Benzoyl Peroxide [Benzac AC Wash] 1 applic TOPICAL BID 07/16/19 08/30/19 Clindamycin 1% Pledgets 1 applic TOPICAL BID 07/16/19 08/30/19 Loratadine [Claritin] 10 mg PO DAILY 07/16/19 08/30/19 metFORMIN HCL 1,000 mg PO BID 07/16/19 08/30/19 Previous Rx's Medication Instructions Recorded Lisinopril [Zestril] 10 mg PO HS tab 08/02/17 SUMAtriptan SUCCINATE [Imitrex] 100 mg PO DAILY PRN tab 08/02/17 Cefuroxime Axetil [Ceftin] 500 mg PO BID #14 tab 07/17/19 Allergies Allergy/AdvReac Type Severity Reaction Status Date / Time bupropion HCl Allergy Rash/Hives Verified 09/01/19 00:26 [From Wellbutrin] divalproex sodium Allergy Unknown Verified 09/01/19 00:26 [From Depakote] fentanyl Allergy Swelling Verified 09/01/19 00:26 Iodinated Contrast Media Allergy Anaphylaxis Verified 09/01/19 00:26 [Iodinated Contrast Media - IV Dye] orange juice [[place]] Allergy Rash/Hives Verified 09/01/19 00:26 Sulfa (Sulfonamide Allergy Rash/Hives Verified 09/01/19 00:26 Antibiotics) Penicillins AdvReac Nausea & Verified 09/01/19 00:26 Vomiting Review of Systems ROS Statement: Those systems with pertinent positive or pertinent negative responses have been documented in the HPI. ROS Other: All systems not noted in ROS Statement are negative. 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 History of Any Multi-Drug Resistant Organisms: None Reported Date of last positivie culture/infection: 05/14/17 MDRO Source:: ESBL URINE Past Surgical History: Bladder Surgery, Section, Cholecystectomy, Hysterectomy, Orthopedic Surgery, Tubal Ligation Additional Past Surgical History / Comment(s): R ovarian cystectomy, laparoscopic surgery for L ovary that had attached to the bowel, D&C, numerous lithotripsies, nephroscopies, cystoscopies and stents to ureters-none in place at this time, L robotic pyeloplasty with post op infection around kidney which then required a picc line/later removed (pt states was not MRSA), L rotator cuff repair, L wrist tendon surgery, colonoscopy Past Anesthesia/Blood Transfusion Reactions: Family History of Problems w/ Anesthesia Additional Past Anesthesia/Blood Transfusion Reaction / Comment(s): dad-hard time waking up due to enzyme problems in liver Past Psychological History: ADD/ADHD, Anxiety, Bipolar, Depression, PTSD Smoking Status: Current every day smoker Past Alcohol Use History: None Reported Past Drug Use History: None Reported - Past Family History Brother(s) Family Medical History: Cancer Additional Family Medical History / Comment(s): testicular Father Family Medical History: Coronary Artery Disease (CAD), CVA/TIA, Diabetes Mellitus, Renal Disease Additional Family Medical History / Comment(s): GLAUCOMA,NEUROPATHY HAD TRIPLE CABG, at 56yrs from renal disease. Mother Family Medical History: Hyperlipidemia Additional Family Medical History / Comment(s): DDD, HAD 3 vessel CABG AGE 54. General Exam Limitations: no limitations General appearance: alert, in no apparent distress, other (This is a well- developed, well-nourished adult female patient in no acute distress. Vital signs upon presentation are temperature 97.3F, pulse 102, respirations 18, blood pressure 143/86, pulse ox 98% on room air.) Eye exam: Present: normal appearance, PERRL, EOMI. Absent: scleral icterus, conjunctival injection, periorbital swelling ENT exam: Present: normal exam, normal oropharynx, mucous membranes moist Respiratory exam: Present: normal lung sounds bilaterally. Absent: respiratory distress, wheezes, rales, rhonchi, stridor Cardiovascular Exam: Present: regular rate, normal rhythm, normal heart sounds. Absent: systolic murmur, diastolic murmur, rubs, gallop, clicks GI/Abdominal exam: Present: soft, normal bowel sounds. Absent: distended, tenderness, guarding, rebound, rigid Back exam: Present: normal inspection, CVA tenderness (L). Absent: CVA tenderness (R) Neurological exam: Present: alert, oriented X3, CN II-XII intact Psychiatric exam: Present: normal affect, normal mood Skin exam: Present: warm, dry, intact, normal color. Absent: rash Course Vital Signs 09/01/19 09/01/19 00:26 02:37 Temperature 97.3 F L Pulse Rate 102 H 87 Respiratory 18 18 Rate Blood Pressure 143/86 128/84 O2 Sat by Pulse 98 96 Oximetry Medical Decision Making - Medical Decision Making 44-year-old female patient presents to the emergency department today for evaluation of left flank pain and hematuria. Physical examination does reveal left CVA tenderness. No abdominal tenderness, abdomen soft. She is afebrile. Vital signs showed no major abnormalities. Labs reviewed and did reveal white b lood cell count at 12.5, this is a same as it was 2 days ago. Kidney function is within normal ranges. Urinalysis does show presence of white and red blood cells. This will be sent for culture. Patient be discharged to continue her home pain medication, Toradol, Zofran. She is instructed to continue her antibiotic pending culture results. She does have an appointment with her urologist on Sunday, she is urged to keep this patch is instructed to follow-up with her primary care physician for recheck tomorrow. Return parameters were discussed in detail. She verbalizes understanding and agrees with this plan - Lab Data Result diagrams: 09/01/19 01:06 09/01/19 01:06 Lab Results 09/01/19 09/01/19 09/01/19 Range/Units 01:06 01:06 01:06 WBC 12.5 H (3.8-10.6) k/uL RBC 4.84 (3.80-5.40) m/uL Hgb 14.3 (11.4-16.0) gm/dL Hct 42.0 (34.0-46.0) % MCV 86.7 (80.0-100.0) fL MCH 29.6 (25.0-35.0) pg MCHC 34.1 (31.0-37.0) g/dL RDW 12.6 (11.5-15.5) % Plt Count 281 (150-450) k/uL Neutrophils % 54 % Lymphocytes % 36 % Monocytes % 6 % Eosinophils % 2 % Basophils % 1 % Neutrophils # 6.8 (1.3-7.7) k/uL Lymphocytes # 4.5 (1.0-4.8) k/uL Monocytes # 0.7 (0-1.0) k/uL Eosinophils # 0.2 (0-0.7) k/uL Basophils # 0.1 (0-0.2) k/uL Sodium 137 (137-145) mmol/L Potassium 4.0 (3.5-5.1) mmol/L Chloride 107 (98-107) mmol/L Carbon Dioxide 20 L (22-30) mmol/L Anion Gap 10 mmol/L BUN 11 (7-17) mg/dL Creatinine 0.65 (0.52-1.04) mg/dL Est GFR (CKD-EPI)AfAm >90 (>60 ml/min/1.73 sqM) Est GFR (CKD-EPI)NonAf >90 (>60 ml/min/1.73 sqM) Glucose 191 H (74-99) mg/dL Plasma Lactic Acid [place] (0.7-2.0) mmol/L Calcium 9.7 (8.4-10.2) mg/dL Total Bilirubin 0.4 (0.2-1.3) mg/dL AST 25 (14-36) U/L ALT 24 (4-34) U/L Alkaline Phosphatase 88 (38-126) U/L Total Protein 7.1 (6.3-8.2) g/dL Albumin 4.3 (3.5-5.0) g/dL Amylase 56 (30-110) U/L Lipase 432 H (23-300) U/L Urine Color Yellow Urine Appearance Cloudy H (Clear) Urine pH 7.0 (5.0-8.0) Ur Specific [place] 1.011 (1.001-1.035) Urine Protein Trace H (Negative) Urine Glucose (UA) Negative (Negative) Urine Ketones Negative (Negative) Urine Blood Large H (Negative) Urine Nitrite Negative (Negative) Urine Bilirubin Negative (Negative) Urine Urobilinogen <2.0 (<2.0) mg/dL Ur Leukocyte Esterase Large H (Negative) Urine RBC >182 H (0-5) /hpf Urine WBC 142 H (0-5) /hpf Urine WBC Clumps Moderate H (None) /hpf Ur Squamous Epith Cells 9 H (0-4) /hpf Urine Bacteria Rare H (None) /hpf 09/01/19 Range/Units 01:06 WBC (3.8-10.6) k/uL RBC (3.80-5.40) m/uL Hgb (11.4-16.0) gm/dL Hct (34.0-46.0) % MCV (80.0-100.0) fL MCH (25.0-35.0) pg MCHC (31.0-37.0) g/dL RDW (11.5-15.5) % Plt Count (150-450) k/uL Neutrophils % % Lymphocytes % % Monocytes % % Eosinophils % % Basophils % % Neutrophils # (1.3-7.7) k/uL Lymphocytes # (1.0-4.8) k/uL Monocytes # (0-1.0) k/uL Eosinophils # (0-0.7) k/uL Basophils # (0-0.2) k/uL Sodium (137-145) mmol/L Potassium (3.5-5.1) mmol/L Chloride (98-107) mmol/L Carbon Dioxide (22-30) mmol/L Anion Gap mmol/L BUN (7-17) mg/dL Creatinine (0.52-1.04) mg/dL Est GFR (CKD-EPI)AfAm (>60 ml/min/1.73 sqM) Est GFR (CKD-EPI)NonAf (>60 ml/min/1.73 sqM) Glucose (74-99) mg/dL Plasma Lactic Acid [place] 2.0 (0.7-2.0) mmol/L Calcium (8.4-10.2) mg/dL Total Bilirubin (0.2-1.3) mg/dL AST (14-36) U/L ALT (4-34) U/L Alkaline Phosphatase (38-126) U/L Total Protein (6.3-8.2) g/dL Albumin (3.5-5.0) g/dL Amylase (30-110) U/L Lipase (23-300) U/L Urine Color Urine Appearance (Clear) Urine pH (5.0-8.0) Ur Specific [place] (1.001-1.035) Urine Protein (Negative) Urine Glucose (UA) (Negative) Urine Ketones (Negative) Urine Blood (Negative) Urine Nitrite (Negative) Urine Bilirubin (Negative) Urine Urobilinogen (<2.0) mg/dL Ur Leukocyte Esterase (Negative) Urine RBC (0-5) /hpf Urine WBC (0-5) /hpf Urine WBC Clumps (None) /hpf Ur Squamous Epith Cells (0-4) /hpf Urine Bacteria (None) /hpf - Radiology Data Radiology results: report reviewed, image reviewed KUB x-rays obtained. Report is reviewed in its entirety. Impression by Dr. Mack shows nonacute abdomen. Disposition Clinical Impression: Flank pain, Kidney stone Disposition: HOME SELF-CARE Condition: Good Instructions (If sedation given, give patient instructions): Kidney Stones (ED ), Flank Pain (ED) Additional Instructions: Increase fluids. Rest. Follow-up with the urologist for further evaluation as you have planned. Follow-up through primary care physician for recheck as soon as possible. Continue home medications. Return to the emergency department immediately for any new, worsening, or concerning symptoms. Is patient prescribed a controlled substance at d/c from ED?: No Referrals: Melchor Stevens MD [Primary Care Provider] - 1-2 days Time of Disposition: 02:24
[2019-09-01 02:41] VITALS: BP 128/84; PULSE 87
== END 2019-09-01 02:41 | disposition home or self-care (01) ==
LOC: EC 00:24
DX: N20.0 Calculus of kidney (principal); E11.9 Type 2 diabetes mellitus without complications; E78.5 Hyperlipidemia, unspecified; I10 Essential (primary) hypertension; F31.9 Bipolar disorder, unspecified; F41.9 Anxiety disorder, unspecified; F17.200 Nicotine dependence, unspecified, uncomplicated; Z88.0 Allergy status to penicillin; Z88.2 Allergy status to sulfonamides; Z88.5 Allergy status to narcotic agent; Z88.8 Allergy status to other drugs, medicaments and biological substances; Z91.018 Allergy to other foods; Z91.041 Radiographic dye allergy status; Z79.84 Long term (current) use of oral hypoglycemic drugs; Z79.899 Other long term (current) drug therapy; Z86.69 Personal history of other diseases of the nervous system and sense organs; Z87.440 Personal history of urinary (tract) infections; Z90.49 Acquired absence of other specified parts of digestive tract
CPT/HCPCS: 36415; 80053; 82150; 83605; 83690; 85025; 81001; 87086; 74018; 99284; 96374; 96375; 96376; 96361; J2405; J1170

== ENCOUNTER 2019-09-02 | Emergency (ER) | payer OTHER | END 2019-09-03 02:44 | disposition home or self-care (01) | CPT/HCPCS: 99284; 96365; 96366; 96375 ×3; 96376; 96361; 36415; 80053; 82150; 83605; 83690; 85025; 81001; 87040; 87086; J2405; J0696; J1885; J1170 ==

== ENCOUNTER 2019-09-17 20:12 | Emergency (ER) | payer OTHER ==
[2019-09-17] MEDS ORDERED: KETOROLAC 30 MG/ML 1 ML VIAL IVP STA (20:42)
[2019-09-17] MEDS ORDERED: SODIUM CHLORIDE 0.9% 1,000 ML IV STA (20:42)
[2019-09-17] MEDS ORDERED: ONDANSETRON 4 MG/2 ML VIAL IVP STA (20:42)
--- NOTE | 2019-09-17 20:42 | ED ---
Abdominal Pain HPI - General Chief Complaint: Abdominal Pain Stated Complaint: Kidney Stone Time Seen by Provider: 09/17/19 20:17 Source: patient Mode of arrival: ambulatory Limitations: no limitations - History of Present Illness Initial Comments: Patient is a 44-year-old female with history of recurrent UTIs and kidney stones presenting to the emergency department with a chief complaint of kidney stone. Patient reports she has left flank pain with mild radiation to the left lower abdomen. Patient reports symptoms began about 2 days ago along with gross hematuria. Patient reports mild dysuria. Denies increased urgency or frequency. Denies any fevers or chills but does report nausea with multiple episodes of nonbilious, nonbloody vomiting. Does report taking Percocet at home for pain that is prescribed to her by the primary care. Patient reports that she saw her primary earlier today for was never given results of the UA. Denies any vaginal symptoms. States she is not sexually active. - Related Data Home Medications Medication Instructions Recorded Confirmed oxyCODONE-APAP 10-325MG [Percocet 1 tab PO QID PRN 08/29/17 08/30/19 10-325 mg] OXcarbazepine [Trileptal] 300 mg PO BID 02/05/18 08/30/19 Mirtazapine [Remeron] 15 mg PO HS 03/12/18 08/30/19 PARoxetine HCL [Paxil] 40 mg PO DAILY 03/12/18 08/30/19 Topiramate [Topamax] 100 mg PO BID 03/12/18 08/30/19 PARoxetine [Paxil] 20 mg PO DAILY 06/04/18 08/30/19 ARIPiprazole [Abilify] 10 mg PO DAILY 07/16/19 08/30/19 Atorvastatin [Lipitor] 40 mg PO DAILY 07/16/19 08/30/19 Benzoyl Peroxide [Benzac AC Wash] 1 applic TOPICAL BID 07/16/19 08/30/19 Clindamycin 1% Pledgets 1 applic TOPICAL BID 07/16/19 08/30/19 Loratadine [Claritin] 10 mg PO DAILY 07/16/19 08/30/19 metFORMIN HCL 1,000 mg PO BID 07/16/19 08/30/19 Previous Rx's Medication Instructions Recorded Lisinopril [Zestril] 10 mg PO HS tab 08/02/17 SUMAtriptan SUCCINATE [Imitrex] 100 mg PO DAILY PRN tab 08/02/17 Cefuroxime Axetil [Ceftin] 500 mg PO BID #14 tab 07/17/19 Ciprofloxacin HCl [Cipro] 500 mg PO Q12H 7 Days #14 tab 09/03/19 Ciprofloxacin HCl [Cipro] 500 mg PO Q12HR #14 tablet 09/17/19 Allergies Allergy/AdvReac Type Severity Reaction Status Date / Time bupropion HCl Allergy Rash/Hives Verified 09/17/19 20:16 [From Wellbutrin] divalproex sodium Allergy Unknown Verified 09/17/19 20:16 [From Depakote] fentanyl Allergy Swelling Verified 09/17/19 20:16 Iodinated Contrast Media Allergy Anaphylaxis Verified 09/17/19 20:16 [Iodinated Contrast Media - IV Dye] orange juice [Wilmer] Allergy Rash/Hives Verified 09/17/19 20:16 Sulfa (Sulfonamide Allergy Rash/Hives Verified 09/17/19 20:16 Antibiotics) Penicillins AdvReac Nausea & Verified 09/17/19 20:16 Vomiting Review of Systems ROS Statement: Those systems with pertinent positive or pertinent negative responses have been documented in the HPI. ROS Other: All systems not noted in ROS Statement are negative. 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 History of Any Multi-Drug Resistant Organisms: None Reported Date of last positivie culture/infection: 05/14/17 MDRO Source:: ESBL URINE Past Surgical History: Bladder Surgery, Section, Cholecystectomy, Hysterectomy, Orthopedic Surgery, Tubal Ligation Additional Past Surgical History / Comment(s): R ovarian cystectomy, laparoscopic surgery for L ovary that had attached to the bowel, D&C, numerous lithotripsies, nephroscopies, cystoscopies and stents to ureters-none in place at this time, L robotic pyeloplasty with post op infection around kidney which then required a picc line/later removed (pt states was not MRSA), L rotator cuff repair, L wrist tendon surgery, colonoscopy Past Anesthesia/Blood Transfusion Reactions: Family History of Problems w/ Anesthesia Additional Past Anesthesia/Blood Transfusion Reaction / Comment(s): dad-hard time waking up due to enzyme problems in liver Past Psychological History: ADD/ADHD, Anxiety, Bipolar, Depression, PTSD Smoking Status: Current every day smoker Past Alcohol Use History: None Reported Past Drug Use History: None Reported - Past Family History Brother(s) Family Medical History: Cancer Additional Family Medical History / Comment(s): testicular Father Family Medical History: Coronary Artery Disease (CAD), CVA/TIA, Diabetes Mellitus, Renal Disease Additional Family Medical History / Comment(s): GLAUCOMA,NEUROPATHY HAD TRIPLE CABG, at 56yrs from renal disease. Mother Family Medical History: Hyperlipidemia Additional Family Medical History / Comment(s): DDD, HAD 3 vessel CABG AGE 54. General Exam Limitations: no limitations General appearance: alert, in no apparent distress, obese Head exam: Present: atraumatic, normocephalic, normal inspection Eye exam: Present: normal appearance, PERRL, EOMI Pupils: Present: normal accommodation ENT exam: Present: normal exam, normal oropharynx, mucous membranes dry, TM's normal bilaterally, normal external ear exam Neck exam: Present: normal inspection, full ROM Respiratory exam: Present: normal lung sounds bilaterally Cardiovascular Exam: Present: regular rate, normal rhythm, normal heart sounds GI/Abdominal exam: Present: soft. Absent: distended, tenderness, guarding, rebound Extremities exam: Present: normal inspection, full ROM Back exam: Present: normal inspection, full ROM, tenderness, CVA tenderness (L) Neurological exam: Present: alert, oriented X3 Psychiatric exam: Present: normal affect, normal mood Skin exam: Present: warm, dry, intact, normal color Course Vital Signs 09/17/19 09/17/19 09/17/19 20:14 21:02 21:54 Temperature 97.3 F L 97.9 F Pulse Rate 100 82 76 Respiratory 18 16 18 Rate Blood Pressure 131/87 128/85 127/78 O2 Sat by Pulse 98 96 95 Oximetry Medical Decision Making - Medical Decision Making Patient is a 44-year-old female with history of recurrent UTIs and kidney stones presenting to the emergency department with chief complaint of kidney stone. On exam patient does appear to have left CVA tenderness with left flank tenderness as well. Patient was given fluids, analgesia and antiemetics. UA shows positive nitrates, elevated red blood cells and white blood cells. Patient states this is somewhat typical for her. Patient states normally she was treated with IV Rocephin and discharged with ciprofloxacin. Patient states she has an appointment scheduled in 2 days to see . Patient is not looking for admission states she is comfortable going home. Patient given 1 g Rocephin and discharged with a seven-day course of Cipro. Vital are stable. Return parameters thoroughly discussed the patient is understanding and agreeable. Case discussed with physician. - Lab Data Lab Results 09/17/19 Range/Units 20:48 Urine Color Light Red Urine Appearance Cloudy H (Clear) Urine pH 5.5 (5.0-8.0) Ur Specific [place] 1.019 (1.001-1.035) Urine Protein Trace H (Negative) Urine Glucose (UA) 2+ H (Negative) Urine Ketones Negative (Negative) Urine Blood Large H (Negative) Urine Nitrite Positive H (Negative) Urine Bilirubin Negative (Negative) Urine Urobilinogen <2.0 (<2.0) mg/dL Ur Leukocyte Esterase Large H (Negative) Urine RBC >182 H (0-5) /hpf Urine WBC 92 H (0-5) /hpf Ur Squamous Epith Cells 4 (0-4) /hpf Urine Bacteria Rare H (None) /hpf Disposition Clinical Impression: Acute flank pain, Nephrolithiasis, UTI (urinary tract infection) Disposition: HOME SELF-CARE Condition: Good Instructions (If sedation given, give patient instructions): Kidney Stones (ED) Additional Instructions: Follow-up with . Alternate between Tylenol and Motrin for pain control. Return to emergency department if symptoms worsen. Prescriptions: Ciprofloxacin HCl [Cipro] 500 mg PO Q12HR #14 tablet Is patient prescribed a controlled substance at d/c from ED?: No Referrals: Melchor Stevens MD [Primary Care Provider] - 1-2 days Time of Disposition: 21:52
[2019-09-17 21:14] LABS: Appearance,Urine Cloudy (Clear); Bacteria,Urine Rare /hpf; Bilirubin,Urine Negative (Negative); Blood,Urine Large (Negative); Color,Urine Light Red; Glucose,Urine (UA) 2+ (Negative); Ketones,Urine Negative (Negative); Leukocyte Esterase,Urine Large (Negative); Nitrite,Urine Positive (Negative); PH, Urine 5.5 (5.0-8.0); Protein,Urine Trace (Negative); RBC,Urine >182 /hpf (0-5); Specific Gravity,Urine 1.019 (1.001-1.035); Squamous Epithelial Cell,Urine 4 /hpf (0-4); Urobilinogen,Urine <2.0 mg/dL (<2.0); WBC,Urine 92 /hpf (0-5)
[2019-09-17] MEDS ORDERED: MORPHINE SULFATE 4 MG/ML SYRINGE IVP STA (21:47)
[2019-09-17] MEDS ORDERED: cefTRIAXone IN SWFI 1,000 MG/10 ML SYRINGE IVP STA (21:48)
[2019-09-17 21:55] VITALS: BP 127/78; PULSE 76; RESP 18; TEMP 97.9
== END 2019-09-17 22:40 | disposition home or self-care (01) ==
LOC: EC 20:12
DX: N20.0 Calculus of kidney (principal); N39.0 Urinary tract infection, site not specified; G43.909 Migraine, unspecified, not intractable, without status migrainosus; F41.9 Anxiety disorder, unspecified; F43.10 Post-traumatic stress disorder, unspecified; E11.9 Type 2 diabetes mellitus without complications; E78.5 Hyperlipidemia, unspecified; F90.9 Attention-deficit hyperactivity disorder, unspecified type; I10 Essential (primary) hypertension; F17.200 Nicotine dependence, unspecified, uncomplicated; Z79.84 Long term (current) use of oral hypoglycemic drugs; Z79.899 Other long term (current) drug therapy; Z88.0 Allergy status to penicillin; Z88.2 Allergy status to sulfonamides; Z91.018 Allergy to other foods; Z91.041 Radiographic dye allergy status; Z88.5 Allergy status to narcotic agent; Z88.8 Allergy status to other drugs, medicaments and biological substances; Z87.19 Personal history of other diseases of the digestive system; Z87.448 Personal history of other diseases of urinary system; Z90.49 Acquired absence of other specified parts of digestive tract; Z98.890 Other specified postprocedural states
CPT/HCPCS: 81001; 87086; 99284; 96374; 96375 ×3; 96361; J2270; J2405; J0696; J1885

== ENCOUNTER 2019-09-28 17:57 | Emergency (ER) | payer OTHER ==
[2019-09-28 18:01] VITALS: BP 130/73; PULSE 110; RESP 18; TEMP 97.7
[2019-09-28] MEDS ORDERED: MORPHINE SULFATE 4 MG/ML SYRINGE IM STA (18:17)
[2019-09-28] MEDS ORDERED: KETOROLAC 30 MG/ML 1 ML VIAL IM STA (18:17)
[2019-09-28 18:21] LABS: Appearance,Urine Cloudy (Clear); Bilirubin,Urine Negative (Negative); Blood,Urine Moderate (Negative); Color,Urine Yellow; Glucose,Urine (UA) 4+ (Negative); Ketones,Urine Negative (Negative); Leukocyte Esterase,Urine Moderate (Negative); Nitrite,Urine Negative (Negative); Protein,Urine Trace (Negative); RBC,Urine >182 /hpf (0-5); Specific Gravity,Urine 1.025 (1.001-1.035); Squamous Epithelial Cell,Urine 10 /hpf (0-4); Urobilinogen,Urine <2.0 mg/dL (<2.0); WBC,Urine 30 /hpf (0-5)
--- NOTE | 2019-09-28 18:24 | ED ---
General Adult HPI - General Chief complaint: Urogenital Stated complaint: kidney pain Time Seen by Provider: 09/28/19 18:01 Source: patient, RN notes reviewed, old records reviewed Mode of arrival: ambulatory Limitations: no limitations - History of Present Illness Initial comments: 44-year-old female presenting with left flank pain, dysuria. Patient denies fevers. She's had some vomiting associated with her pain. She states she's been on ciprofloxacin for the last week without improvement in her dysuria or flank pain. She denies anterior abdominal pain. Denies cough or dyspnea. Pain is typical of her chronic flank pain in character. - Related Data Home Medications Medication Instructions Recorded Confirmed oxyCODONE-APAP 10-325MG [Percocet 1 tab PO QID PRN 08/29/17 08/30/19 10-325 mg] OXcarbazepine [Trileptal] 300 mg PO BID 02/05/18 08/30/19 Mirtazapine [Remeron] 15 mg PO HS 03/12/18 08/30/19 PARoxetine HCL [Paxil] 40 mg PO DAILY 03/12/18 08/30/19 Topiramate [Topamax] 100 mg PO BID 03/12/18 08/30/19 PARoxetine [Paxil] 20 mg PO DAILY 06/04/18 08/30/19 ARIPiprazole [Abilify] 10 mg PO DAILY 07/16/19 08/30/19 Atorvastatin [Lipitor] 40 mg PO DAILY 07/16/19 08/30/19 Benzoyl Peroxide [Benzac AC Wash] 1 applic TOPICAL BID 07/16/19 08/30/19 Clindamycin 1% Pledgets 1 applic TOPICAL BID 07/16/19 08/30/19 Loratadine [Claritin] 10 mg PO DAILY 07/16/19 08/30/19 metFORMIN HCL 1,000 mg PO BID 07/16/19 08/30/19 Previous Rx's Medication Instructions Recorded Lisinopril [Zestril] 10 mg PO HS tab 08/02/17 SUMAtriptan SUCCINATE [Imitrex] 100 mg PO DAILY PRN tab 08/02/17 Cefuroxime Axetil [Ceftin] 500 mg PO BID #14 tab 07/17/19 Ciprofloxacin HCl [Cipro] 500 mg PO Q12H 7 Days #14 tab 09/03/19 Ciprofloxacin HCl [Cipro] 500 mg PO Q12HR #14 tablet 09/17/19 Cephalexin [Keflex] 500 mg PO QID 10 Days #40 cap 09/28/19 Ondansetron Odt [Zofran Odt] 4 mg PO Q8HR PRN #10 tab 09/28/19 Allergies Allergy/AdvReac Type Severity Reaction Status Date / Time bupropion HCl Allergy Rash/Hives Verified 09/28/19 18:01 [From Wellbutrin] divalproex sodium Allergy Unknown Verified 09/28/19 18:01 [From Depakote] fentanyl Allergy Swelling Verified 09/28/19 18:01 Iodinated Contrast Media Allergy Anaphylaxis Verified 09/28/19 18:01 [Iodinated Contrast Media - IV Dye] orange juice [Tensas] Allergy Rash/Hives Verified 09/28/19 18:01 Sulfa (Sulfonamide Allergy Rash/Hives Verified 09/28/19 18:01 Antibiotics) Penicillins AdvReac Nausea & Verified 09/28/19 18:01 Vomiting Review of Systems ROS Statement: Those systems with pertinent positive or pertinent negative responses have been documented in the HPI. ROS Other: All systems not noted in ROS Statement are negative. 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 History of Any Multi-Drug Resistant Organisms: None Reported Date of last positivie culture/infection: 05/14/17 MDRO Source:: ESBL URINE Past Surgical History: Bladder Surgery, Section, Cholecystectomy, Hysterectomy, Orthopedic Surgery, Tubal Ligation Additional Past Surgical History / Comment(s): R ovarian cystectomy, laparoscopic surgery for L ovary that had attached to the bowel, D&C, numerous lithotripsies, nephroscopies, cystoscopies and stents to ureters-none in place at this time, L robotic pyeloplasty with post op infection around kidney which then required a picc line/later removed (pt states was not MRSA), L rotator cuff repair, L wrist tendon surgery, colonoscopy Past Anesthesia/Blood Transfusion Reactions: Family History of Problems w/ Anesthesia Additional Past Anesthesia/Blood Transfusion Reaction / Comment(s): dad-hard time waking up due to enzyme problems in liver Past Psychological History: ADD/ADHD, Anxiety, Bipolar, Depression, PTSD Smoking Status: Current every day smoker Past Alcohol Use History: None Reported Past Drug Use History: None Reported - Past Family History Brother(s) Family Medical History: Cancer Additional Family Medical History / Comment(s): testicular Father Family Medical History: Coronary Artery Disease (CAD), CVA/TIA, Diabetes Mellitus, Renal Disease Additional Family Medical History / Comment(s): GLAUCOMA,NEUROPATHY HAD TRIPLE CABG, at 56yrs from renal disease. Mother Family Medical History: Hyperlipidemia Additional Family Medical History / Comment(s): DDD, HAD 3 vessel CABG AGE 54. General Exam Limitations: no limitations General appearance: alert, in no apparent distress Head exam: Present: atraumatic, normocephalic Eye exam: Present: normal appearance, PERRL ENT exam: Present: normal exam, mucous membranes moist Neck exam: Present: normal inspection. Absent: tenderness, meningismus Respiratory exam: Present: normal lung sounds bilaterally. Absent: respiratory distress, wheezes Cardiovascular Exam: Present: regular rate, normal rhythm GI/Abdominal exam: Present: soft. Absent: distended, tenderness, guarding Extremities exam: Present: normal inspection, full ROM, normal capillary refill Back exam: Present: CVA tenderness (L) Neurological exam: Present: alert, oriented X3 Psychiatric exam: Present: normal affect, normal mood Skin exam: Present: warm, dry, intact. Absent: cyanosis, diaphoretic Course Vital Signs 09/28/19 17:58 Temperature 97.7 F Pulse Rate 110 H Respiratory 18 Rate Blood Pressure 130/73 O2 Sat by Pulse 98 Oximetry Medical Decision Making - Medical Decision Making 44-year-old afebrile, stable vitals. Urinalysis showing greater than 182 red cells, this is yellow in color, microscopic hematuria. Patient has 30 white alisa ls, her previous nitrate has cleared. She will be switched to Keflex, awaiting culture results. She will maintain oral hydration at home return with development of fever, worsening symptoms. - Lab Data Lab Results 09/28/19 Range/Units 18:10 Urine Color Yellow Urine Appearance Cloudy H (Clear) Urine pH 7.0 (5.0-8.0) Ur Specific [place] 1.025 (1.001-1.035) Urine Protein Trace H (Negative) Urine Glucose (UA) 4+ H (Negative) Urine Ketones Negative (Negative) Urine Blood Moderate H (Negative) Urine Nitrite Negative (Negative) Urine Bilirubin Negative (Negative) Urine Urobilinogen <2.0 (<2.0) mg/dL Ur Leukocyte Esterase Moderate H (Negative) Urine RBC >182 H (0-5) /hpf Urine WBC 30 H (0-5) /hpf Ur Squamous Epith Cells 10 H (0-4) /hpf Disposition Clinical Impression: Flank pain, UTI (urinary tract infection) Disposition: HOME SELF-CARE Condition: Fair Instructions (If sedation given, give patient instructions): Urinary Tract Infection in Women (ED) Prescriptions: Cephalexin [Keflex] 500 mg PO QID 10 Days #40 cap Ondansetron Odt [Zofran Odt] 4 mg PO Q8HR PRN #10 tab PRN Reason: Vomiting Is patient prescribed a controlled substance at d/c from ED?: No Referrals: Melchor Stevens MD [Primary Care Provider] - 1-2 days Time of Disposition: 19:00
== END 2019-09-28 18:42 | disposition home or self-care (01) ==
LOC: EC 17:57
DX: N39.0 Urinary tract infection, site not specified (principal); R11.10 Vomiting, unspecified; E11.9 Type 2 diabetes mellitus without complications; E78.5 Hyperlipidemia, unspecified; I10 Essential (primary) hypertension; F31.9 Bipolar disorder, unspecified; F41.9 Anxiety disorder, unspecified; F17.200 Nicotine dependence, unspecified, uncomplicated; Z88.0 Allergy status to penicillin; Z88.2 Allergy status to sulfonamides; Z88.5 Allergy status to narcotic agent; Z88.8 Allergy status to other drugs, medicaments and biological substances; Z91.018 Allergy to other foods; Z91.041 Radiographic dye allergy status; Z79.84 Long term (current) use of oral hypoglycemic drugs; Z79.899 Other long term (current) drug therapy; Z87.19 Personal history of other diseases of the digestive system; Z90.49 Acquired absence of other specified parts of digestive tract; Z98.890 Other specified postprocedural states
CPT/HCPCS: 81001; 87086; 99284; 96372 ×2; J2270; J1885; 87077; 87186

== ENCOUNTER 2019-10-11 17:41 | Emergency (ER) | payer OTHER ==
[2019-10-11 18:29] VITALS: RESP 18; TEMP 98.3
[2019-10-11] MEDS ORDERED: MORPHINE SULFATE 4 MG/ML SYRINGE IV STA (18:29)
[2019-10-11] MEDS ORDERED: SODIUM CHLORIDE 0.9% 1,000 ML IV ONE (18:29)
[2019-10-11 18:50] LABS: Basophils # (A) 0.1 k/uL (0-0.2); Basophils % (A) 1 %; Eosinophils # (A) 0.6 k/uL (0-0.7); Eosinophils % (A) 5 %; HCT 41.4 % (34.0-46.0); HGB 13.9 gm/dL (11.4-16.0); Lymphocytes # (A) 4.6 k/uL (1.0-4.8); Lymphocytes % (A) 38 %; MCH 29.1 pg (25.0-35.0); MCHC 33.4 g/dL (31.0-37.0); MCV 87.2 fL (80.0-100.0); Mean Platelet Volume 7.5; Monocytes # (A) 0.4 k/uL (0-1.0); Monocytes % (A) 4 %; Neutrophils # (A) 6.3 k/uL (1.3-7.7); Neutrophils % (A) 52 %; Platelet Count 284 k/uL (150-450); RBC 4.75 m/uL (3.80-5.40); RDW 12.6 % (11.5-15.5); WBC 12.1 k/uL (3.8-10.6)
[2019-10-11 19:00] LABS: Appearance,Urine Cloudy (Clear); Bilirubin,Urine Negative (Negative); Blood,Urine Large (Negative); Color,Urine Yellow; Glucose,Urine (UA) 4+ (Negative); Ketones,Urine Negative (Negative); Leukocyte Esterase,Urine Moderate (Negative); Mucus,Urine Rare /hpf; Nitrite,Urine Negative (Negative); PH, Urine 5.5 (5.0-8.0); Protein,Urine Trace (Negative); RBC,Urine >182 /hpf (0-5); Specific Gravity,Urine 1.021 (1.001-1.035); Squamous Epithelial Cell,Urine 12 /hpf (0-4); Urobilinogen,Urine <2.0 mg/dL (<2.0); WBC,Urine 46 /hpf (0-5)
[2019-10-11 19:03] LABS: ALT 33 U/L (4-34); AST 41 U/L (14-36); African American GFR (CKD) >90 (>60 ml/min/1.73 sqM); Alkaline Phosphatase 110 U/L (38-126); Anion Gap 13 mmol/L; Blood Urea Nitrogen 8 mg/dL (7-17); Calcium 9.3 mg/dL (8.4-10.2); Carbon Dioxide 22 mmol/L (22-30); Chloride 98 mmol/L (98-107); Glucose 404 mg/dL (74-99); Non-African American GFR(CKD) >90 (>60 ml/min/1.73 sqM); Potassium 3.8 mmol/L (3.5-5.1); Sodium 133 mmol/L (137-145); Total Bilirubin 0.3 mg/dL (0.2-1.3); Total Protein 6.7 g/dL (6.3-8.2)
--- NOTE | 2019-10-11 19:04 | XR ---
EXAMINATION TYPE: XR KUB DATE OF EXAM: 10/11/2019 COMPARISON: 09/01/2019 HISTORY: Abdominal pain TECHNIQUE: 2 views upright FINDINGS: Bowel gas pattern is normal. There is no sign of intestinal obstruction or pneumoperitoneum . Fecal pattern is normal. There are clips from cholecystectomy. Lung bases are clear. IMPRESSION: Nonacute abdomen.
--- NOTE | 2019-10-11 19:34 | ED ---
Female Urogenital HPI - General Chief complaint: Urogenital Stated complaint: kidney infection/stones Time Seen by Provider: 10/11/19 18:00 Source: patient Mode of arrival: ambulatory Limitations: no limitations - History of Present Illness Initial comments: The patient is a 44-year-old female who presents emergency department with possible kidney stone. The patient has seen multiple times in our emergency department for similar complaints. The patient reports to suprapubic abdominal pain and right flank pain which is usually present she has either a urinary tract infection or kidney stone. States that she was using the restroom earlier today when she thought she saw calculus passed in the toilet. She is concerned that she may have a second one she is currently trying to passes the pain has not eased. She denies any fevers or chills. Admits to nausea with vomiting. Denies difficulty voiding or hematuria. She sees Dr. Ortega in office. She notified his office today of her pain was given an appointment for next week. She has been taking her Percocet at home for pain which has not helped her symptoms. Denies concern for . No abnormal vaginal bleeding or discharge. Denies to patient, diarrhea, melenic stools or hematochezia - Related Data Home Medications Medication Instructions Recorded Confirmed oxyCODONE-APAP 10-325MG [Percocet 1 tab PO QID PRN 08/29/17 08/30/19 10-325 mg] OXcarbazepine [Trileptal] 300 mg PO BID 02/05/18 08/30/19 Mirtazapine [Remeron] 15 mg PO HS 03/12/18 08/30/19 PARoxetine HCL [Paxil] 40 mg PO DAILY 03/12/18 08/30/19 Topiramate [Topamax] 100 mg PO BID 03/12/18 08/30/19 PARoxetine [Paxil] 20 mg PO DAILY 06/04/18 08/30/19 ARIPiprazole [Abilify] 10 mg PO DAILY 07/16/19 08/30/19 Atorvastatin [Lipitor] 40 mg PO DAILY 07/16/19 08/30/19 Benzoyl Peroxide [Benzac AC Wash] 1 applic TOPICAL BID 07/16/19 08/30/19 Clindamycin 1% [place] 1 applic TOPICAL BID 07/16/19 08/30/19 Loratadine [Claritin] 10 mg PO DAILY 07/16/19 08/30/19 metFORMIN HCL 1,000 mg PO BID 07/16/19 08/30/19 Previous Rx's Medication Instructions Recorded Lisinopril [Zestril] 10 mg PO HS tab 08/02/17 SUMAtriptan SUCCINATE [Imitrex] 100 mg PO DAILY PRN tab 08/02/17 Cefuroxime Axetil [Ceftin] 500 mg PO BID #14 tab 07/17/19 Ciprofloxacin HCl [Cipro] 500 mg PO Q12H 7 Days #14 tab 09/03/19 Ciprofloxacin HCl [Cipro] 500 mg PO Q12HR #14 tablet 09/17/19 Cephalexin [Keflex] 500 mg PO QID 10 Days #40 cap 09/28/19 Ondansetron Odt [Zofran Odt] 4 mg PO Q8HR PRN #10 tab 09/28/19 Allergies Allergy/AdvReac Type Severity Reaction Status Date / Time bupropion HCl Allergy Rash/Hives Verified 10/11/19 18:00 [From Wellbutrin] divalproex sodium Allergy Unknown Verified 10/11/19 18:00 [From Depakote] fentanyl Allergy Swelling Verified 10/11/19 18:00 Iodinated Contrast Media Allergy Anaphylaxis Verified 10/11/19 18:00 [Iodinated Contrast Media - IV Dye] orange juice [[place]] Allergy Rash/Hives Verified 10/11/19 18:00 Sulfa (Sulfonamide Allergy Rash/Hives Verified 10/11/19 18:00 Antibiotics) Penicillins AdvReac Nausea & Verified 10/11/19 18:00 Vomiting Review of Systems ROS Statement: Those systems with pertinent positive or pertinent negative responses have been documented in the HPI. ROS Other: All systems not noted in ROS Statement are negative. 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 History of Any Multi-Drug Resistant Organisms: None Reported Date of last positivie culture/infection: 05/14/17 MDRO Source:: ESBL URINE Past Surgical History: Bladder Surgery, Section, Cholecystectomy, Hysterectomy, Orthopedic Surgery, Tubal Ligation Additional Past Surgical History / Comment(s): R ovarian cystectomy, laparoscopic surgery for L ovary that had attached to the bowel, D&C, numerous lithotripsies, nephroscopies, cystoscopies and stents to ureters-none in place at this time, L robotic pyeloplasty with post op infection around kidney which then required a picc line/later removed (pt states was not MRSA), L rotator cuff repair, L wrist tendon surgery, colonoscopy Past Anesthesia/Blood Transfusion Reactions: Family History of Problems w/ Anesthesia Additional Past Anesthesia/Blood Transfusion Reaction / Comment(s): dad-hard time waking up due to enzyme problems in liver Past Psychological History: ADD/ADHD, Anxiety, Bipolar, Depression, PTSD Smoking Status: Current every day smoker Past Alcohol Use History: None Reported Past Drug Use History: None Reported - Past Family History Brother(s) Family Medical History: Cancer Additional Family Medical History / Comment(s): testicular Father Family Medical History: Coronary Artery Disease (CAD), CVA/TIA, Diabetes Mellitus, Renal Disease Additional Family Medical History / Comment(s): GLAUCOMA,NEUROPATHY HAD TRIPLE CABG, at 56yrs from renal disease. Mother Family Medical History: Hyperlipidemia Additional Family Medical History / Comment(s): DDD, HAD 3 vessel CABG AGE 54. General Exam Limitations: no limitations General appearance: alert, in no apparent distress Head exam: Present: atraumatic, normocephalic, normal inspection Eye exam: Present: normal appearance, PERRL, EOMI. Absent: scleral icterus, conjunctival injection, periorbital swelling ENT exam: Present: normal exam, mucous membranes moist Neck exam: Present: normal inspection. Absent: tenderness, meningismus, lymphadenopathy Respiratory exam: Present: normal lung sounds bilaterally. Absent: respiratory distress, wheezes, rales, rhonchi, stridor Cardiovascular Exam: Present: normal rhythm, tachycardia, normal heart sounds. Absent: systolic murmur, diastolic murmur, rubs, gallop, clicks GI/Abdominal exam: Present: soft, normal bowel sounds. Absent: distended, tenderness, guarding, rebound, rigid Extremities exam: Present: normal inspection, full ROM, normal capillary refill. Absent: tenderness, pedal edema, joint swelling, calf tenderness Back exam: Present: CVA tenderness (L) Neurological exam: Present: alert, oriented X3, CN II-XII intact Psychiatric exam: Present: normal affect, normal mood Skin exam: Present: warm, dry, intact, normal color. Absent: rash Course Vital Signs 10/11/19 10/11/19 17:59 20:10 Temperature 98.3 F Pulse Rate 105 H 80 Respiratory 18 18 Rate Blood Pressure 103/63 111/64 O2 Sat by Pulse 97 98 Oximetry Medical Decision Making - Medical Decision Making Upon arrival the patient is placed in room 7. A thorough history and physical exam was performed. Peripheral IV was established. The patient was given 4 mg of morphine, liter bolus of normal saline. Laboratory studies were conducted. I did perform a renal ultrasound and KUB as the patient has had several CTs of her abdomen and pelvis in the past. Laboratory studies remarkable for sodium of 133. Glucose is elevated at 404. No anion gap. Urinalysis is positive for 4+ glucose, large blood, moderate leukocyte esterase, greater than 182 red blood cells, 46 white blood cells, occasional white blood cell clumps. HCG is not detected. KUB demonstrates a nonacute abdomen with no signs of intestinal obstruction or overlying calcifications. Of sound of the patient's kidneys and bladder demonstrates no signs of hydronephrosis. Possible small nonobstructing renal calculi. I discussed results of the patient. She is requesting coming from her pain. She was given 1 mg of Dilaudid. I discussed diagnosis, differential and treatment options. At this time the patient will be discharged home. She does have Percocet and Motrin to take at home. I inform her that I do feel that she may have passed a stone because of her microscopic hematuria. Urinalysis is negative for any bacteria and will be sent for culture. The patient just finished Levaquin yesterday and therefore would prefer to hold off on any antibiotics until culture results return. At this time the patient will be discharged home. She has a appointment with Dr. Ortega next Sunday. If she has any new or worsening symptoms she should return to the emergency room. The patient was in agreement treatment plan and she is discharged home in stable condition - Lab Data Result diagrams: 10/11/19 18:42 10/11/19 18:42 Lab Results 10/11/19 10/11/19 10/11/19 Range/Units 18:42 18:42 18:42 WBC 12.1 H (3.8-10.6) k/uL RBC 4.75 (3.80-5.40) m/uL Hgb 13.9 (11.4-16.0) gm/dL Hct 41.4 (34.0-46.0) % MCV 87.2 (80.0-100.0) fL MCH 29.1 (25.0-35.0) pg MCHC 33.4 (31.0-37.0) g/dL RDW 12.6 (11.5-15.5) % Plt Count 284 (150-450) k/uL Neutrophils % 52 % Lymphocytes % 38 % Monocytes % 4 % Eosinophils % 5 % Basophils % 1 % Neutrophils # 6.3 (1.3-7.7) k/uL Lymphocytes # 4.6 (1.0-4.8) k/uL Monocytes # 0.4 (0-1.0) k/uL Eosinophils # 0.6 (0-0.7) k/uL Basophils # 0.1 (0-0.2) k/uL Sodium (137-145) mmol/L Potassium (3.5-5.1) mmol/L Chloride (98-107) mmol/L Carbon Dioxide (22-30) mmol/L Anion Gap mmol/L BUN (7-17) mg/dL Creatinine (0.52-1.04) mg/dL Est GFR (CKD-EPI)AfAm (>60 ml/min/1.73 sqM) Est GFR (CKD-EPI)NonAf (>60 ml/min/1.73 sqM) Glucose (74-99) mg/dL Calcium (8.4-10.2) mg/dL Total Bilirubin (0.2-1.3) mg/dL AST (14-36) U/L ALT (4-34) U/L Alkaline Phosphatase (38-126) U/L Total Protein (6.3-8.2) g/dL Albumin (3.5-5.0) g/dL Urine Color Yellow Urine Appearance Cloudy H (Clear) Urine pH 5.5 (5.0-8.0) Ur Specific [place] 1.021 (1.001-1.035) Urine Protein Trace H (Negative) Urine Glucose (UA) 4+ H (Negative) Urine Ketones Negative (Negative) Urine Blood Large H (Negative) Urine Nitrite Negative (Negative) Urine Bilirubin Negative (Negative) Urine Urobilinogen <2.0 (<2.0) mg/dL Ur Leukocyte Esterase Moderate H (Negative) Urine RBC >182 H (0-5) /hpf Urine WBC 46 H (0-5) /hpf Urine WBC Clumps Occasional H (None) /hpf Ur Squamous Epith Cells 12 H (0-4) /hpf Urine Mucus Rare H (None) /hpf Urine HCG, Qual Not Detected (Not Detectd) 10/11/19 Range/Units 18:42 WBC (3.8-10.6) k/uL RBC (3.80-5.40) m/uL Hgb (11.4-16.0) gm/dL Hct (34.0-46.0) % MCV (80.0-100.0) fL MCH (25.0-35.0) pg MCHC (31.0-37.0) g/dL RDW (11.5-15.5) % Plt Count (150-450) k/uL Neutrophils % % Lymphocytes % % Monocytes % % Eosinophils % % Basophils % % Neutrophils # (1.3-7.7) k/uL Lymphocytes # (1.0-4.8) k/uL Monocytes # (0-1.0) k/uL Eosinophils # (0-0.7) k/uL Basophils # (0-0.2) k/uL Sodium 133 L (137-145) mmol/L Potassium 3.8 (3.5-5.1) mmol/L Chloride 98 (98-107) mmol/L Carbon Dioxide 22 (22-30) mmol/L Anion Gap 13 mmol/L BUN 8 (7-17) mg/dL Creatinine 0.74 (0.52-1.04) mg/dL Est GFR (CKD-EPI)AfAm >90 (>60 ml/min/1.73 sqM) Est GFR (CKD-EPI)NonAf >90 (>60 ml/min/1.73 sqM) Glucose 404 H (74-99) mg/dL Calcium 9.3 (8.4-10.2) mg/dL Total Bilirubin 0.3 (0.2-1.3) mg/dL AST 41 H (14-36) U/L ALT 33 (4-34) U/L Alkaline Phosphatase 110 (38-126) U/L Total Protein 6.7 (6.3-8.2) g/dL Albumin 4.0 (3.5-5.0) g/dL Urine Color Urine Appearance (Clear) Urine pH (5.0-8.0) Ur Specific [place] (1.001-1.035) Urine Protein (Negative) Urine Glucose (UA) (Negative) Urine Ketones (Negative) Urine Blood (Negative) Urine Nitrite (Negative) Urine Bilirubin (Negative) Urine Urobilinogen (<2.0) mg/dL Ur Leukocyte Esterase (Negative) Urine RBC (0-5) /hpf Urine WBC (0-5) /hpf Urine WBC Clumps (None) /hpf Ur Squamous Epith Cells (0-4) /hpf Urine Mucus (None) /hpf Urine HCG, Qual (Not Detectd) Disposition Clinical Impression: Left flank pain, chronic, Nephrolithiasis, Hematuria Disposition: HOME SELF-CARE Condition: Stable Instructions (If sedation given, give patient instructions): Hematuria (ED) Additional Instructions: Follow-up with Dr. Ortega at your schedule appointment next week. Return to the ED for any new or worsening symptoms Is patient prescribed a controlled substance at d/c from ED?: No Referrals: Melchor Stevens MD [Primary Care Provider] - 1-2 days Malachi Ortega MD [STAFF PHYSICIAN] - 1-2 days Time of Disposition: 20:16
--- NOTE | 2019-10-11 19:50 | US ---
EXAMINATION TYPE: US kidneys/renal and bladder DATE OF EXAM: 10/11/2019 COMPARISON: US 03/03/2019 CLINICAL HISTORY: kidney stone. hematuria per patient, left flank pain EXAM MEASUREMENTS: Right Kidney: 11.6 x 4.7 x 4.3 cm Left Kidney: 11.2 x 4.4 x 4.1 cm Right Kidney: No hydronephrosis or masses seen, Tiny echogenic foci visualized measuring 0.2 cm Left Kidney: No hydronephrosis or masses seen, Tiny echogenic foci visualized measuring 0.2 cm Bladder: wnl Bilateral Jets seen: Yes There is no evidence for hydronephrosis at this point in time. No masses are identified. The urinar y bladder is anechoic. Bilateral ureteral jets are seen. IMPRESSION: Possible small nonobstructing renal calculi. No evidence of solid renal mass or obstruction. Normal u rinary bladder.
[2019-10-11] MEDS ORDERED: HYDROmorphone 1 MG/ML 1 ML SYRINGE IVP STA (20:11)
[2019-10-11 20:20] VITALS: BP 111/64; PULSE 80
== END 2019-10-11 20:26 | disposition home or self-care (01) ==
LOC: EC 17:41
DX: N20.0 Calculus of kidney (principal); E11.65 Type 2 diabetes mellitus with hyperglycemia; F31.9 Bipolar disorder, unspecified; F43.10 Post-traumatic stress disorder, unspecified; F41.9 Anxiety disorder, unspecified; F90.9 Attention-deficit hyperactivity disorder, unspecified type; I10 Essential (primary) hypertension; E78.5 Hyperlipidemia, unspecified; G43.909 Migraine, unspecified, not intractable, without status migrainosus; H52.223 Regular astigmatism, bilateral; F17.200 Nicotine dependence, unspecified, uncomplicated; Z79.84 Long term (current) use of oral hypoglycemic drugs; Z79.899 Other long term (current) drug therapy; Z87.448 Personal history of other diseases of urinary system; Z88.0 Allergy status to penicillin; Z88.2 Allergy status to sulfonamides; Z91.018 Allergy to other foods; Z91.041 Radiographic dye allergy status; Z88.5 Allergy status to narcotic agent; Z88.8 Allergy status to other drugs, medicaments and biological substances; Z90.49 Acquired absence of other specified parts of digestive tract; Z98.890 Other specified postprocedural states
CPT/HCPCS: 36415; 80053; 85025; 81001; 81025; 87086; 87077; 87186; 74018; 76770; 99284; 96374; 96375; 96361; J2270; J1170

== ENCOUNTER 2019-10-23 01:03 | Emergency (ER) | payer OTHER ==
[2019-10-23 01:11] VITALS: TEMP 97.9
[2019-10-23] MEDS ORDERED: KETOROLAC 60 MG/2 ML VIAL IM STA (01:17)
--- NOTE | 2019-10-23 01:48 | ED ---
General Adult HPI - General Source: patient, RN notes reviewed Mode of arrival: ambulatory Limitations: no limitations <Shukri Palacios - Last Filed: 10/23/19 01:45> <Jame Bishop - Last Filed: 10/23/19 05:17> - General Chief complaint: Back Pain/Injury Stated complaint: Kidney Stones Time Seen by Provider: 10/23/19 01:13 - History of Present Illness Initial comments: This a 44-year-old female presents emergency Department chief complaint of left flank pain. Patient states that this is from her ongoing kidney stones. Patient states that she passed 2 stones today. Patient also states that she's been recently treated for urinary tract infection. was seen by PCP today in which she states she had a urinalysis and showed evidence of blood, signs of infection. Patient reports no fevers or chills she states that she has slight nausea without evidence of vomiting, diarrhea constipation. Patient has not had any recent procedures. She stated that she is. Have an appointment with her urologist on Sunday but states that was canceled secondary to emergency. Patient denies any chest pain or shortness of breath. (Shukri Palacios) - Related Data Home Medications Medication Instructions Recorded Confirmed oxyCODONE-APAP 10-325MG [Percocet 1 tab PO QID PRN 08/29/17 08/30/19 10-325 mg] OXcarbazepine [Trileptal] 300 mg PO BID 02/05/18 08/30/19 Mirtazapine [Remeron] 15 mg PO HS 03/12/18 08/30/19 PARoxetine HCL [Paxil] 40 mg PO DAILY 03/12/18 08/30/19 Topiramate [Topamax] 100 mg PO BID 03/12/18 08/30/19 PARoxetine [Paxil] 20 mg PO DAILY 06/04/18 08/30/19 ARIPiprazole [Abilify] 10 mg PO DAILY 07/16/19 08/30/19 Atorvastatin [Lipitor] 40 mg PO DAILY 07/16/19 08/30/19 Benzoyl Peroxide [Benzac AC Wash] 1 applic TOPICAL BID 07/16/19 08/30/19 Clindamycin 1% Pledgets 1 applic TOPICAL BID 07/16/19 08/30/19 Loratadine [Claritin] 10 mg PO DAILY 07/16/19 08/30/19 metFORMIN HCL 1,000 mg PO BID 07/16/19 08/30/19 Previous Rx's Medication Instructions Recorded Lisinopril [Zestril] 10 mg PO HS tab 08/02/17 SUMAtriptan SUCCINATE [Imitrex] 100 mg PO DAILY PRN tab 08/02/17 Cefuroxime Axetil [Ceftin] 500 mg PO BID #14 tab 07/17/19 Ciprofloxacin HCl [Cipro] 500 mg PO Q12H 7 Days #14 tab 09/03/19 Ciprofloxacin HCl [Cipro] 500 mg PO Q12HR #14 tablet 09/17/19 Cephalexin [Keflex] 500 mg PO QID 10 Days #40 cap 09/28/19 Ondansetron Odt [Zofran Odt] 4 mg PO Q8HR PRN #10 tab 09/28/19 Cephalexin [Keflex] 500 mg PO Q12HR #20 cap 10/23/19 Allergies Allergy/AdvReac Type Severity Reaction Status Date / Time bupropion HCl Allergy Rash/Hives Verified 10/11/19 18:00 [From Wellbutrin] divalproex sodium Allergy Unknown Verified 10/11/19 18:00 [From Depakote] fentanyl Allergy Swelling Verified 10/11/19 18:00 Iodinated Contrast Media Allergy Anaphylaxis Verified 10/11/19 18:00 [Iodinated Contrast Media - IV Dye] orange juice [[place]] Allergy Rash/Hives Verified 10/11/19 18:00 Sulfa (Sulfonamide Allergy Rash/Hives Verified 10/11/19 18:00 Antibiotics) Penicillins AdvReac Nausea & Verified 10/11/19 18:00 Vomiting Review of Systems ROS Other: All systems not noted in ROS Statement are negative. <Shukri Palacios - Last Filed: 10/23/19 01:45> ROS Other: All systems not noted in ROS Statement are negative. <Jame Bishop - Last Filed: 10/23/19 05:17> ROS Statement: Those systems with pertinent positive or pertinent negative responses have been documented in the HPI. 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 History of Any Multi-Drug Resistant Organisms: None Reported Date of last positivie culture/infection: 05/14/17 MDRO Source:: ESBL URINE Past Surgical History: Bladder Surgery, Section, Cholecystectomy, Hysterectomy, Orthopedic Surgery, Tubal Ligation Additional Past Surgical History / Comment(s): R ovarian cystectomy, laparosco pic surgery for L ovary that had attached to the bowel, D&C, numerous lithotripsies, nephroscopies, cystoscopies and stents to ureters-none in place at this time, L robotic pyeloplasty with post op infection around kidney which then required a picc line/later removed (pt states was not MRSA), L rotator cuff repair, L wrist tendon surgery, colonoscopy Past Anesthesia/Blood Transfusion Reactions: Family History of Problems w/ Anesthesia Additional Past Anesthesia/Blood Transfusion Reaction / Comment(s): dad-hard time waking up due to enzyme problems in liver Past Psychological History: ADD/ADHD, Anxiety, Bipolar, Depression, PTSD Smoking Status: Current every day smoker Past Alcohol Use History: None Reported Past Drug Use History: None Reported - Past Family History Brother(s) Family Medical History: Cancer Additional Family Medical History / Comment(s): testicular Father Family Medical History: Coronary Artery Disease (CAD), CVA/TIA, Diabetes Mellitus, Renal Disease Additional Family Medical History / Comment(s): GLAUCOMA,NEUROPATHY HAD TRIPLE CABG, at 56yrs from renal disease. Mother Family Medical History: Hyperlipidemia Additional Family Medical History / Comment(s): DDD, HAD 3 vessel CABG AGE 54. <Shukri Palacios M - Last Filed: 10/23/19 01:45> General Exam Limitations: no limitations General appearance: alert, in no apparent distress Head exam: Present: atraumatic, normocephalic, normal inspection Eye exam: Present: normal appearance, PERRL, EOMI. Absent: scleral icterus, conjunctival injection, periorbital swelling ENT exam: Present: normal exam, mucous membranes moist Neck exam: Present: normal inspection, full ROM. Absent: tenderness, meningismus, lymphadenopathy Respiratory exam: Present: normal lung sounds bilaterally. Absent: respiratory distress, wheezes, rales, rhonchi, stridor Cardiovascular Exam: Present: regular rate, normal rhythm, normal heart sounds. Absent: systolic murmur, diastolic murmur, rubs, gallop, clicks GI/Abdominal exam: Present: soft, normal bowel sounds. Absent: distended, tenderness, guarding, rebound, rigid Back exam: Present: CVA tenderness (L). Absent: CVA tenderness (R) Neurological exam: Present: alert, oriented X3, CN II-XII intact Skin exam: Present: warm, dry, intact, normal color. Absent: rash <Shukri Palacios M - Last Filed: 10/23/19 01:45> Course Vital Signs 10/23/19 10/23/19 10/23/19 01:09 02:00 03:00 Temperature 97.9 F Pulse Rate 84 82 Respiratory 18 16 16 Rate Blood Pressure 112/78 87/49 84/51 O2 Sat by Pulse 99 Oximetry 10/23/19 10/23/19 10/23/19 03:10 03:20 03:30 Temperature Pulse Rate 80 75 73 Respiratory 16 16 16 Rate Blood Pressure 97/51 82/43 73/52 O2 Sat by Pulse Oximetry 10/23/19 10/23/19 10/23/19 03:39 03:45 03:59 Temperature Pulse Rate 75 75 72 Respiratory 16 16 16 Rate Blood Pressure 79/46 92/64 102/65 O2 Sat by Pulse Oximetry 10/23/19 10/23/19 10/23/19 04:21 04:30 05:00 Temperature Pulse Rate 75 84 82 Respiratory 16 16 16 Rate Blood Pressure 99/70 98/71 103/66 O2 Sat by Pulse Oximetry Medical Decision Making - Lab Data Result diagrams: 10/23/19 02:36 10/23/19 02:36 <Jame Bishop - Last Filed: 10/23/19 05:17> - Medical Decision Making 44-year-old female presenting with left flank pain. Typical left flank pain that she has chronically. She does admit to some vomiting and dry heaving. No fever. She was recently on a course of antibiotics and had seen her primary care physician yesterday. In the emergency department workup is initiated, she has a mild leukocytosis 12.3 which appears chronic for this patient. Hemoglobin is stable. She has an elevated blood sugar at 246. Mild lactic acidosis 2.6 likely secondary to dehydration and volume loss. Urinalysis showing 15 white cells and occasional bacteria. This will be cultured. She's given IV hydration and Toradol for pain. While sleeping the patient does have some low blood pressure readings however after fluid resuscitation and waking the patient up she has a normalized blood pressure. She is not tachycardic or febrile. She is offered admission for IV fluids and pain management and she prefers to be discharged home she has pain medication at home and will drink plenty of fluids. She will return to the emergency department with worsening or changing symptoms. Given the leukocyte esterase and elevated white blood cells as well as bacteria and urinalysis she will be started on Keflex awaiting culture results. Given 1 dose of ceftriaxone in the emergency department. (Jame Bishop) - Lab Data Lab Results 10/23/19 10/23/19 10/23/19 Range/Units 01:27 02:36 02:36 WBC 12.3 H (3.8-10.6) k/uL RBC 4.47 (3.80-5.40) m/uL Hgb 13.8 (11.4-16.0) gm/dL Hct 39.7 (34.0-46.0) % MCV 88.8 (80.0-100.0) fL MCH 31.0 (25.0-35.0) pg MCHC 34.9 (31.0-37.0) g/dL RDW 13.2 (11.5-15.5) % Plt Count 279 (150-450) k/uL Neutrophils % 48 % Lymphocytes % 41 % Monocytes % 5 % Eosinophils % 4 % Basophils % 0 % Neutrophils # 5.9 (1.3-7.7) k/uL Lymphocytes # 5.0 H (1.0-4.8) k/uL Monocytes # 0.6 (0-1.0) k/uL Eosinophils # 0.5 (0-0.7) k/uL Basophils # 0.1 (0-0.2) k/uL Manual Slide Review Performed Sodium 134 L (137-145) mmol/L Potassium 4.0 (3.5-5.1) mmol/L Chloride 102 (98-107) mmol/L Carbon Dioxide 20 L (22-30) mmol/L Anion Gap 12 mmol/L BUN 12 (7-17) mg/dL Creatinine 0.67 (0.52-1.04) mg/dL Est GFR (CKD-EPI)AfAm >90 (>60 ml/min/1.73 sqM) Est GFR (CKD-EPI)NonAf >90 (>60 ml/min/1.73 sqM) Glucose 246 H (74-99) mg/dL Plasma Lactic Acid Brant (0.7-2.0) mmol/L Calcium 9.4 (8.4-10.2) mg/dL Total Bilirubin 0.3 (0.2-1.3) mg/dL AST 26 (14-36) U/L ALT 26 (4-34) U/L Alkaline Phosphatase 100 (38-126) U/L Total Protein 7.0 (6.3-8.2) g/dL Albumin 4.2 (3.5-5.0) g/dL Urine Color Light Yellow Urine Appearance Cloudy H (Clear) Urine pH 5.5 (5.0-8.0) Ur Specific [place] 1.013 (1.001-1.035) Urine Protein Negative (Negative) Urine Glucose (UA) 2+ H (Negative) Urine Ketones Negative (Negative) Urine Blood Negative (Negative) Urine Nitrite Negative (Negative) Urine Bilirubin Negative (Negative) Urine Urobilinogen <2.0 (<2.0) mg/dL Ur Leukocyte Esterase Large H (Negative) Urine RBC 3 (0-5) /hpf Urine WBC 58 H (0-5) /hpf Urine WBC Clumps Many H (None) /hpf Ur Squamous Epith Cells <1 (0-4) /hpf Urine Bacteria Occasional H (None) /hpf 10/23/19 Range/Units 02:36 WBC (3.8-10.6) k/uL RBC (3.80-5.40) m/uL Hgb (11.4-16.0) gm/dL Hct (34.0-46.0) % MCV (80.0-100.0) fL MCH (25.0-35.0) pg MCHC (31.0-37.0) g/dL RDW (11.5-15.5) % Plt Count (150-450) k/uL Neutrophils % % Lymphocytes % % Monocytes % % Eosinophils % % Basophils % % Neutrophils # (1.3-7.7) k/uL Lymphocytes # (1.0-4.8) k/uL Monocytes # (0-1.0) k/uL Eosinophils # (0-0.7) k/uL Basophils # (0-0.2) k/uL Manual Slide Review Sodium (137-145) mmol/L Potassium (3.5-5.1) mmol/L Chloride (98-107) mmol/L Carbon Dioxide (22-30) mmol/L Anion Gap mmol/L BUN (7-17) mg/dL Creatinine (0.52-1.04) mg/dL Est GFR (CKD-EPI)AfAm (>60 ml/min/1.73 sqM) Est GFR (CKD-EPI)NonAf (>60 ml/min/1.73 sqM) Glucose (74-99) mg/dL Plasma Lactic Acid Brant 2.6 H* (0.7-2.0) mmol/L Calcium (8.4-10.2) mg/dL Total Bilirubin (0.2-1.3) mg/dL AST (14-36) U/L ALT (4-34) U/L Alkaline Phosphatase (38-126) U/L Total Protein (6.3-8.2) g/dL Albumin (3.5-5.0) g/dL Urine Color Urine Appearance (Clear) Urine pH (5.0-8.0) Ur Specific [place] (1.001-1.035) Urine Protein (Negative) Urine Glucose (UA) (Negative) Urine Ketones (Negative) Urine Blood (Negative) Urine Nitrite (Negative) Urine Bilirubin (Negative) Urine Urobilinogen (<2.0) mg/dL Ur Leukocyte Esterase (Negative) Urine RBC (0-5) /hpf Urine WBC (0-5) /hpf Urine WBC Clumps (None) /hpf Ur Squamous Epith Cells (0-4) /hpf Urine Bacteria (None) /hpf Disposition <Shukri Palacios - Last Filed: 10/23/19 01:45> Is patient prescribed a controlled substance at d/c from ED?: No Time of Disposition: 05:16 <Jame Bishop - Last Filed: 10/23/19 05:17> Clinical Impression: UTI (urinary tract infection), Left flank pain Disposition: HOME SELF-CARE Condition: Good Instructions (If sedation given, give patient instructions): Flank Pain (ED), Urinary Tract Infection in Women (ED) Prescriptions: Cephalexin [Keflex] 500 mg PO Q12HR #20 cap Referrals: Melchor Stevens MD [Primary Care Provider] - 1-2 days
[2019-10-23 02:10] VITALS: RESP 16
[2019-10-23 02:18] LABS: Appearance,Urine Cloudy (Clear); Bacteria,Urine Occasional /hpf; Bilirubin,Urine Negative (Negative); Blood,Urine Negative (Negative); Color,Urine Light Yellow; Glucose,Urine (UA) 2+ (Negative); Ketones,Urine Negative (Negative); Leukocyte Esterase,Urine Large (Negative); Nitrite,Urine Negative (Negative); PH, Urine 5.5 (5.0-8.0); Protein,Urine Negative (Negative); RBC,Urine 3 /hpf (0-5); Specific Gravity,Urine 1.013 (1.001-1.035); Squamous Epithelial Cell,Urine <1 /hpf (0-4); Urobilinogen,Urine <2.0 mg/dL (<2.0); WBC,Urine 58 /hpf (0-5)
[2019-10-23] MEDS ORDERED: SODIUM CHLORIDE 0.9% 2,000 ML IV ONE (02:26)
[2019-10-23] MEDS ORDERED: cefTRIAXone IN SWFI 1,000 MG/10 ML SYRINGE IVP STA (02:27)
[2019-10-23 03:25] LABS: Basophils # (A) 0.1 k/uL (0-0.2); Basophils % (A) 0 %; Eosinophils # (A) 0.5 k/uL (0-0.7); Eosinophils % (A) 4 %; HCT 39.7 % (34.0-46.0); HGB 13.8 gm/dL (11.4-16.0); Lymphocytes % (A) 41 %; MCHC 34.9 g/dL (31.0-37.0); MCV 88.8 fL (80.0-100.0); Monocytes # (A) 0.6 k/uL (0-1.0); Monocytes % (A) 5 %; Neutrophils # (A) 5.9 k/uL (1.3-7.7); Neutrophils % (A) 48 %; Platelet Count 279 k/uL (150-450); RBC 4.47 m/uL (3.80-5.40); RDW 13.2 % (11.5-15.5); WBC 12.3 k/uL (3.8-10.6)
[2019-10-23 03:40] LABS: ALT 26 U/L (4-34); AST 26 U/L (14-36); African American GFR (CKD) >90 (>60 ml/min/1.73 sqM); Albumin 4.2 g/dL (3.5-5.0); Alkaline Phosphatase 100 U/L (38-126); Anion Gap 12 mmol/L; Blood Urea Nitrogen 12 mg/dL (7-17); Calcium 9.4 mg/dL (8.4-10.2); Carbon Dioxide 20 mmol/L (22-30); Chloride 102 mmol/L (98-107); Glucose 246 mg/dL (74-99); Non-African American GFR(CKD) >90 (>60 ml/min/1.73 sqM); Sodium 134 mmol/L (137-145); Total Bilirubin 0.3 mg/dL (0.2-1.3)
[2019-10-23 05:25] VITALS: BP 103/71; PULSE 84
== END 2019-10-23 05:26 | disposition home or self-care (01) ==
LOC: EC 01:03
DX: N39.0 Urinary tract infection, site not specified (principal); D72.829 Elevated white blood cell count, unspecified; E87.2 Acidosis; E11.9 Type 2 diabetes mellitus without complications; E78.5 Hyperlipidemia, unspecified; I10 Essential (primary) hypertension; F41.9 Anxiety disorder, unspecified; F31.9 Bipolar disorder, unspecified; F17.200 Nicotine dependence, unspecified, uncomplicated; Z79.84 Long term (current) use of oral hypoglycemic drugs; Z79.899 Other long term (current) drug therapy; Z88.2 Allergy status to sulfonamides; Z88.8 Allergy status to other drugs, medicaments and biological substances; Z91.041 Radiographic dye allergy status; Z91.018 Allergy to other foods; Z88.5 Allergy status to narcotic agent; Z88.0 Allergy status to penicillin
CPT/HCPCS: 36415; 80053; 83605; 85025; 81001; 87040; 87086; 87077; 87186; 99284; 96374; 96361 ×2; 96372; J0696; J1885

== ENCOUNTER 2019-10-25 20:03 | Emergency (ER) | payer OTHER ==
[2019-10-25 20:13] VITALS: RESP 18; TEMP 98
[2019-10-25 20:33] LABS: Appearance,Urine Cloudy (Clear); Bacteria,Urine Occasional /hpf; Bilirubin,Urine Negative (Negative); Blood,Urine Negative (Negative); Color,Urine Yellow; Glucose,Urine (UA) 3+ (Negative); Ketones,Urine Trace (Negative); Leukocyte Esterase,Urine Large (Negative); Nitrite,Urine Negative (Negative); PH, Urine 6.5 (5.0-8.0); Protein,Urine Negative (Negative); RBC,Urine 22 /hpf (0-5); Specific Gravity,Urine 1.014 (1.001-1.035); Squamous Epithelial Cell,Urine 14 /hpf (0-4); Urobilinogen,Urine <2.0 mg/dL (<2.0); WBC,Urine 38 /hpf (0-5)
[2019-10-25] MEDS ORDERED: KETOROLAC 30 MG/ML 1 ML VIAL IVP STA (21:05)
[2019-10-25] MEDS ORDERED: METOCLOPRAMIDE 5 MG/ML 2 ML VIAL IVP STA (21:05)
[2019-10-25] MEDS ORDERED: SODIUM CHLORIDE 0.9% 1,000 ML IV STA (21:05)
[2019-10-25 21:35] LABS: Basophils # (A) 0.1 k/uL (0-0.2); Basophils % (A) 1 %; Eosinophils # (A) 0.4 k/uL (0-0.7); Eosinophils % (A) 4 %; HCT 41.3 % (34.0-46.0); HGB 13.6 gm/dL (11.4-16.0); Lymphocytes # (A) 3.3 k/uL (1.0-4.8); Lymphocytes % (A) 30 %; MCH 29.5 pg (25.0-35.0); MCV 89.4 fL (80.0-100.0); Mean Platelet Volume 7.6; Monocytes # (A) 0.5 k/uL (0-1.0); Monocytes % (A) 4 %; Neutrophils # (A) 6.7 k/uL (1.3-7.7); Neutrophils % (A) 61 %; Platelet Count 259 k/uL (150-450); RBC 4.62 m/uL (3.80-5.40); RDW 12.9 % (11.5-15.5)
[2019-10-25 21:42] LABS: ALT 31 U/L (4-34); AST 35 U/L (14-36); African American GFR (CKD) >90 (>60 ml/min/1.73 sqM); Albumin 4.2 g/dL (3.5-5.0); Alkaline Phosphatase 98 U/L (38-126); Anion Gap 12 mmol/L; Blood Urea Nitrogen 8 mg/dL (7-17); Calcium 9.5 mg/dL (8.4-10.2); Carbon Dioxide 19 mmol/L (22-30); Chloride 106 mmol/L (98-107); Glucose 256 mg/dL (74-99); Non-African American GFR(CKD) >90 (>60 ml/min/1.73 sqM); Potassium 3.9 mmol/L (3.5-5.1); Sodium 137 mmol/L (137-145); Total Bilirubin 0.3 mg/dL (0.2-1.3)
[2019-10-25] MEDS ORDERED: MORPHINE SULFATE 4 MG/ML SYRINGE IV STA (22:20)
[2019-10-25 23:39] VITALS: BP 112/72; PULSE 83
[2019-10-26] MEDS ORDERED: ACET/COD 300 MG/30 MG STARTER PACK 6 TAB BTL PO STA (00:17)
[2019-10-26] MEDS ORDERED: CEPHALEXIN 500MG STARTER PACK 4 CAP BTL PO STA (00:17)
--- NOTE | 2019-10-26 00:18 | ED ---
General Adult HPI - General Chief complaint: Urogenital Stated complaint: Urogenital Time Seen by Provider: 10/25/19 20:16 Source: patient, RN notes reviewed, old records reviewed Mode of arrival: ambulatory Limitations: no limitations - History of Present Illness Initial comments: 44-year-old female patient past history significant for diabetes, recurrent kidney stones and urinary tract infections presents to the chief complaint of left flank pain. Patient reports that this pain has been going on for a long time her last 3 days it has gotten somewhat worse. Patient recently completed ciprofloxacin antibiotic. Denies any other complaints. Systemic: Pt denies fatigue, fever/chills, rash. Pt denies weakness, night sweats, weight loss. Neuro: Pt denies headache, visual disturbances, syncope or pre-syncope. HEENT: Pt denies ocular discharge or irritation, otalgia, rhinorrhea, pharyngitis or notable lymphadenopathy. Cardiopulmonary: Pt denies chest pain, SOB, heart palpitations, dyspnea on exertion. Abdominal/GI: Pt denies abdominal pain. : Pt denies dysuria, burning w/ urination, frequency/urgency. Denies new onset urinary or bowel incontinence. MSK: Pt denies myalgia, loss of strength or function in extremities. Neuro: Pt denies new onset weakness, paresthesias. - Related Data Home Medications Medication Instructions Recorded Confirmed oxyCODONE-APAP 10-325MG [Percocet 1 tab PO QID PRN 08/29/17 08/30/19 10-325 mg] OXcarbazepine [Trileptal] 300 mg PO BID 02/05/18 08/30/19 Mirtazapine [Remeron] 15 mg PO HS 03/12/18 08/30/19 PARoxetine HCL [Paxil] 40 mg PO DAILY 03/12/18 08/30/19 Topiramate [Topamax] 100 mg PO BID 03/12/18 08/30/19 PARoxetine [Paxil] 20 mg PO DAILY 06/04/18 08/30/19 ARIPiprazole [Abilify] 10 mg PO DAILY 07/16/19 08/30/19 Atorvastatin [Lipitor] 40 mg PO DAILY 07/16/19 08/30/19 Benzoyl Peroxide [Benzac AC Wash] 1 applic TOPICAL BID 07/16/19 08/30/19 Clindamycin 1% Pledgets 1 applic TOPICAL BID 07/16/19 08/30/19 Loratadine [Claritin] 10 mg PO DAILY 07/16/19 08/30/19 metFORMIN HCL 1,000 mg PO BID 07/16/19 08/30/19 Previous Rx's Medication Instructions Recorded Lisinopril [Zestril] 10 mg PO HS tab 08/02/17 SUMAtriptan SUCCINATE [Imitrex] 100 mg PO DAILY PRN tab 08/02/17 Cefuroxime Axetil [Ceftin] 500 mg PO BID #14 tab 07/17/19 Ciprofloxacin HCl [Cipro] 500 mg PO Q12H 7 Days #14 tab 09/03/19 Ciprofloxacin HCl [Cipro] 500 mg PO Q12HR #14 tablet 09/17/19 Cephalexin [Keflex] 500 mg PO QID 10 Days #40 cap 09/28/19 Ondansetron Odt [Zofran Odt] 4 mg PO Q8HR PRN #10 tab 09/28/19 Cephalexin [Keflex] 500 mg PO Q12HR #20 cap 10/23/19 Cephalexin [Keflex] 500 mg PO Q6HR 14 Days #48 cap 10/26/19 Allergies Allergy/AdvReac Type Severity Reaction Status Date / Time bupropion HCl Allergy Rash/Hives Verified 10/25/19 20:11 [From Wellbutrin] divalproex sodium Allergy Unknown Verified 10/25/19 20:11 [From Depakote] fentanyl Allergy Swelling Verified 10/25/19 20:11 Iodinated Contrast Media Allergy Anaphylaxis Verified 10/25/19 20:11 [Iodinated Contrast Media - IV Dye] orange juice [[place]] Allergy Rash/Hives Verified 10/25/19 20:11 Sulfa (Sulfonamide Allergy Rash/Hives Verified 10/25/19 20:11 Antibiotics) Penicillins AdvReac Nausea & Verified 10/25/19 20:11 Vomiting Review of Systems ROS Statement: Those systems with pertinent positive or pertinent negative responses have been documented in the HPI. ROS Other: All systems not noted in ROS Statement are negative. 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 History of Any Multi-Drug Resistant Organisms: None Reported Date of last positivie culture/infection: 05/14/17 MDRO Source:: ESBL URINE Past Surgical History: Bladder Surgery, Section, Cholecystectomy, Hysterectomy, Orthopedic Surgery, Tubal Ligation Additional Past Surgical History / Comment(s): R ovarian cystectomy, laparoscopic surgery for L ovary that had attached to the bowel, D&C, numerous lithotripsies, nephroscopies, cystoscopies and stents to ureters-none in place at this time, L robotic pyeloplasty with post op infection around kidney which then required a picc line/later removed (pt states was not MRSA), L rotator cuff repair, L wrist tendon surgery, colonoscopy Past Anesthesia/Blood Transfusion Reactions: Family History of Problems w/ Anesthesia Additional Past Anesthesia/Blood Transfusion Reaction / Comment(s): dad-hard time waking up due to enzyme problems in liver Past Psychological History: ADD/ADHD, Anxiety, Bipolar, Depression, PTSD Smoking Status: Current every day smoker Past Alcohol Use History: None Reported Past Drug Use History: None Reported - Past Family History Brother(s) Family Medical History: Cancer Additional Family Medical History / Comment(s): testicular Father Family Medical History: Coronary Artery Disease (CAD), CVA/TIA, Diabetes Mellitus, Renal Disease Additional Family Medical History / Comment(s): GLAUCOMA,NEUROPATHY HAD TRIPLE CABG, at 56yrs from renal disease. Mother Family Medical History: Hyperlipidemia Additional Family Medical History / Comment(s): DDD, HAD 3 vessel CABG AGE 54. General Exam - General Exam Comments Initial Comments: Constitutional: NAD, AOX3, Pt has pleasant affect. HEENT: NC/AT, trachea midline, neck supple, no lymphadenopathy. Posterior pharynx non erythematous, without exudates. External ears appear normal, without discharge. Mucous membranes moist. Eyes PERRLA, EOM intact. There is no scleral icterus. No pallor noted. Cardiopulmonary: RRR, no murmurs, rubs or gallops, no JVD noted. Lungs CTAB in anterior and posterior guillen. No peripheral edema. Abdominal exam: Abdomen soft and non-distended. Abdomen non-tender to palpation in all 4 quadrants. Bowel sounds active in LLQ. No hepatosplenomegaly. No ecchymosis. Left flank mildly tender to palpation. No external skin changes. Neuro: CN II-XII grossly intact. No nuchal rigidity. No raccon eyes, no hernandez sign, no hemotympanum. No cervical spinal tenderness. MSK: No posterior calf tenderness bilaterally, homans sign negative bilaterally. Posterior tibialis and radial pulse +2 bilaterally. Sensation intact in upper and lower extremities. Full active ROM in upper and lower extremities, 5/5 stregnth. Limitations: no limitations Course Vital Signs 10/25/19 10/25/19 20:11 23:37 Temperature 98.0 F Pulse Rate 98 83 Respiratory 18 18 Rate Blood Pressure 124/84 112/72 O2 Sat by Pulse 99 98 Oximetry Medical Decision Making - Medical Decision Making 44-year-old female patient past history significant for diabetes, recurrent kidney stones and urinary tract infections presents to the chief complaint of left flank pain. Patient reports that this pain has been going on for a long time her last 3 days it has gotten somewhat worse. Patient recently completed ciprofloxacin antibiotic. Patient does report that she has had some mild nausea and vomiting. Denies any other complaints. Patient also has a stable, af ebrile. Physical exam displayed some mild left flank tenderness. Laboratory investigations revealed a leukocytosis of 11.0. Hyperglycemia of 256. Mildly elevated lactate acid likely secondary to nausea vomiting, dehydration. UA displayed +3 glucose, trace ketones, large leukocyte esterase, 22 red blood cells, 38 white blood cells. Urine will be cultured. Pt administered rocephin in ED. Patient denied any imaging. Patient offered admission which she also declines. Patient discharged with Keflex 4 times a day for 14 days for close patient follow-up with a urologist and her primary care provider as well as strict return precautions. Case discussed with Dr. Arauz. - Lab Data Result diagrams: 10/25/19 21:16 10/25/19 21:16 Lab Results 10/25/19 10/25/19 10/25/19 Range/Units 20:18 20:18 21:16 WBC 11.0 H (3.8-10.6) k/uL RBC 4.62 (3.80-5.40) m/uL Hgb 13.6 (11.4-16.0) gm/dL Hct 41.3 (34.0-46.0) % MCV 89.4 (80.0-100.0) fL MCH 29.5 (25.0-35.0) pg MCHC 33.0 (31.0-37.0) g/dL RDW 12.9 (11.5-15.5) % Plt Count 259 (150-450) k/uL Neutrophils % 61 % Lymphocytes % 30 % Monocytes % 4 % Eosinophils % 4 % Basophils % 1 % Neutrophils # 6.7 (1.3-7.7) k/uL Lymphocytes # 3.3 (1.0-4.8) k/uL Monocytes # 0.5 (0-1.0) k/uL Eosinophils # 0.4 (0-0.7) k/uL Basophils # 0.1 (0-0.2) k/uL Sodium (137-145) mmol/L Potassium (3.5-5.1) mmol/L Chloride (98-107) mmol/L Carbon Dioxide (22-30) mmol/L Anion Gap mmol/L BUN (7-17) mg/dL Creatinine (0.52-1.04) mg/dL Est GFR (CKD-EPI)AfAm (>60 ml/min/1.73 sqM) Est GFR (CKD-EPI)NonAf (>60 ml/min/1.73 sqM) Glucose (74-99) mg/dL Plasma Lactic Acid Brant (0.7-2.0) mmol/L Calcium (8.4-10.2) mg/dL Total Bilirubin (0.2-1.3) mg/dL AST (14-36) U/L ALT (4-34) U/L Alkaline Phosphatase (38-126) U/L Total Protein (6.3-8.2) g/dL Albumin (3.5-5.0) g/dL Lipase (23-300) U/L Urine Color Yellow Urine Appearance Cloudy H (Clear) Urine pH 6.5 (5.0-8.0) Ur Specific [place] 1.014 (1.001-1.035) Urine Protein Negative (Negative) Urine Glucose (UA) 3+ H (Negative) Urine Ketones Trace H (Negative) Urine Blood Negative (Negative) Urine Nitrite Negative (Negative) Urine Bilirubin Negative (Negative) Urine Urobilinogen <2.0 (<2.0) mg/dL Ur Leukocyte Esterase Large H (Negative) Urine RBC 22 H (0-5) /hpf Urine WBC 38 H (0-5) /hpf Urine WBC Clumps Rare H (None) /hpf Ur Squamous Epith Cells 14 H (0-4) /hpf Urine Bacteria Occasional H (None) /hpf Urine HCG, Qual Not Detected (Not Detectd) 10/25/19 10/25/19 Range/Units 21:16 21:16 WBC (3.8-10.6) k/uL RBC (3.80-5.40) m/uL Hgb (11.4-16.0) gm/dL Hct (34.0-46.0) % MCV (80.0-100.0) fL MCH (25.0-35.0) pg MCHC (31.0-37.0) g/dL RDW (11.5-15.5) % Plt Count (150-450) k/uL Neutrophils % % Lymphocytes % % Monocytes % % Eosinophils % % Basophils % % Neutrophils # (1.3-7.7) k/uL Lymphocytes # (1.0-4.8) k/uL Monocytes # (0-1.0) k/uL Eosinophils # (0-0.7) k/uL Basophils # (0-0.2) k/uL Sodium 137 (137-145) mmol/L Potassium 3.9 (3.5-5.1) mmol/L Chloride 106 (98-107) mmol/L Carbon Dioxide 19 L (22-30) mmol/L Anion Gap 12 mmol/L BUN 8 (7-17) mg/dL Creatinine 0.64 (0.52-1.04) mg/dL Est GFR (CKD-EPI)AfAm >90 (>60 ml/min/1.73 sqM) Est GFR (CKD-EPI)NonAf >90 (>60 ml/min/1.73 sqM) Glucose 256 H (74-99) mg/dL Plasma Lactic Acid Brant 2.6 H* (0.7-2.0) mmol/L Calcium 9.5 (8.4-10.2) mg/dL Total Bilirubin 0.3 (0.2-1.3) mg/dL AST 35 (14-36) U/L ALT 31 (4-34) U/L Alkaline Phosphatase 98 (38-126) U/L Total Protein 7.0 (6.3-8.2) g/dL Albumin 4.2 (3.5-5.0) g/dL Lipase 265 (23-300) U/L Urine Color Urine Appearance (Clear) Urine pH (5.0-8.0) Ur Specific [place] (1.001-1.035) Urine Protein (Negative) Urine Glucose (UA) (Negative) Urine Ketones (Negative) Urine Blood (Negative) Urine Nitrite (Negative) Urine Bilirubin (Negative) Urine Urobilinogen (<2.0) mg/dL Ur Leukocyte Esterase (Negative) Urine RBC (0-5) /hpf Urine WBC (0-5) /hpf Urine WBC Clumps (None) /hpf Ur Squamous Epith Cells (0-4) /hpf Urine Bacteria (None) /hpf Urine HCG, Qual (Not Detectd) Disposition Clinical Impression: Flank pain Disposition: HOME SELF-CARE Condition: Stable Instructions (If sedation given, give patient instructions): Flank Pain (ED), Urinary Tract Infection in Women (ED) Additional Instructions: Take antibiotics as directed. Follow-up with urologist as well as primary care provider tomorrow. Return to ER if condition worsens. Prescriptions: Cephalexin [Keflex] 500 mg PO Q6HR 14 Days #48 cap Is patient prescribed a controlled substance at d/c from ED?: No Referrals: Melchor Stevens MD [Primary Care Provider] - 1-2 days Malachi Ortega MD [STAFF PHYSICIAN] - 1-2 days
== END 2019-10-26 00:29 | disposition home or self-care (01) ==
LOC: EC 20:03
DX: E11.65 Type 2 diabetes mellitus with hyperglycemia (principal); D72.829 Elevated white blood cell count, unspecified; R74.0 Nonspecific elevation of levels of transaminase and lactic acid dehydrogenase [LDH]; G43.909 Migraine, unspecified, not intractable, without status migrainosus; F41.9 Anxiety disorder, unspecified; F31.9 Bipolar disorder, unspecified; F43.10 Post-traumatic stress disorder, unspecified; E78.5 Hyperlipidemia, unspecified; I10 Essential (primary) hypertension; F17.200 Nicotine dependence, unspecified, uncomplicated; Z79.84 Long term (current) use of oral hypoglycemic drugs; Z79.899 Other long term (current) drug therapy; Z88.8 Allergy status to other drugs, medicaments and biological substances; Z88.5 Allergy status to narcotic agent; Z91.041 Radiographic dye allergy status; Z91.018 Allergy to other foods; Z88.0 Allergy status to penicillin; Z88.2 Allergy status to sulfonamides; Z98.890 Other specified postprocedural states; Z87.442 Personal history of urinary calculi; Z87.440 Personal history of urinary (tract) infections; Z87.19 Personal history of other diseases of the digestive system; Z87.448 Personal history of other diseases of urinary system; Z90.49 Acquired absence of other specified parts of digestive tract; Z87.42 Personal history of other diseases of the female genital tract
CPT/HCPCS: 36415; 80053; 83605; 83690; 85025; 81001; 81025; 87086; 99284; 96365; 96366 ×2; 96375 ×3; J2270; J2765; J0696; J1885

== ENCOUNTER 2019-11-01 00:04 | Emergency (ER) | payer OTHER ==
[2019-11-01 00:12] VITALS: RESP 18
[2019-11-01] MEDS ORDERED: KETOROLAC 30 MG/ML 1 ML VIAL IVP STA (00:29)
[2019-11-01] MEDS ORDERED: SODIUM CHLORIDE 0.9% 1,000 ML IV ONE (00:29)
--- NOTE | 2019-11-01 00:36 | ED ---
General Adult HPI - General Chief complaint: Urogenital Stated complaint: Kidney Pain Time Seen by Provider: 11/01/19 00:12 Source: patient Mode of arrival: ambulatory Limitations: no limitations - History of Present Illness Initial comments: 44-year-old female patient presents to the emergency department today for evaluation of left flank pain, vomiting, and persistent urinary tract infection. Patient states she's been on several antibiotics including multiple courses of Cipro, Keflex, and is now taking Levaquin. Patient states that she does have history of kidney stones and her urologist is concerned she may have a septic stone. She states that she has had 6 episodes of vomiting today. States she has had continuous diarrhea for the last 3 days. States she is unable to count the episodes of diarrhea. She denies any fever or chills. States she does have blood in her urine sometimes. Patient denies any recent rash, fever, chills, cough, shortness of breath, chest pain, numbness, tingling, dizziness, weakness, headache, visual changes, or any other complaints. - Related Data Home Medications Medication Instructions Recorded Confirmed oxyCODONE-APAP 10-325MG [Percocet 1 tab PO QID PRN 08/29/17 08/30/19 10-325 mg] OXcarbazepine [Trileptal] 300 mg PO BID 02/05/18 08/30/19 Mirtazapine [Remeron] 15 mg PO HS 03/12/18 08/30/19 PARoxetine HCL [Paxil] 40 mg PO DAILY 03/12/18 08/30/19 Topiramate [Topamax] 100 mg PO BID 03/12/18 08/30/19 PARoxetine [Paxil] 20 mg PO DAILY 06/04/18 08/30/19 ARIPiprazole [Abilify] 10 mg PO DAILY 07/16/19 08/30/19 Atorvastatin [Lipitor] 40 mg PO DAILY 07/16/19 08/30/19 Benzoyl Peroxide [Benzac AC Wash] 1 applic TOPICAL BID 07/16/19 08/30/19 Clindamycin 1% Pledgets 1 applic TOPICAL BID 07/16/19 08/30/19 Loratadine [Claritin] 10 mg PO DAILY 07/16/19 08/30/19 metFORMIN HCL 1,000 mg PO BID 07/16/19 08/30/19 Previous Rx's Medication Instructions Recorded Lisinopril [Zestril] 10 mg PO HS tab 08/02/17 SUMAtriptan SUCCINATE [Imitrex] 100 mg PO DAILY PRN tab 08/02/17 Cefuroxime Axetil [Ceftin] 500 mg PO BID #14 tab 07/17/19 Ciprofloxacin HCl [Cipro] 500 mg PO Q12H 7 Days #14 tab 09/03/19 Ciprofloxacin HCl [Cipro] 500 mg PO Q12HR #14 tablet 09/17/19 Cephalexin [Keflex] 500 mg PO QID 10 Days #40 cap 09/28/19 Ondansetron Odt [Zofran Odt] 4 mg PO Q8HR PRN #10 tab 09/28/19 Cephalexin [Keflex] 500 mg PO Q12HR #20 cap 10/23/19 Cephalexin [Keflex] 500 mg PO Q6HR 14 Days #48 cap 10/26/19 Allergies Allergy/AdvReac Type Severity Reaction Status Date / Time bupropion HCl Allergy Rash/Hives Verified 11/01/19 00:12 [From Wellbutrin] divalproex sodium Allergy Unknown Verified 11/01/19 00:12 [From Depakote] fentanyl Allergy Swelling Verified 11/01/19 00:12 Iodinated Contrast Media Allergy Anaphylaxis Verified 11/01/19 00:12 [Iodinated Contrast Media - IV Dye] orange juice [[place]] Allergy Rash/Hives Verified 11/01/19 00:12 Sulfa (Sulfonamide Allergy Rash/Hives Verified 11/01/19 00:12 Antibiotics) Penicillins AdvReac Nausea & Verified 11/01/19 00:12 Vomiting Review of Systems ROS Statement: Those systems with pertinent positive or pertinent negative responses have been documented in the HPI. ROS Other: All systems not noted in ROS Statement are negative. 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 History of Any Multi-Drug Resistant Organisms: None Reported Date of last positivie culture/infection: 05/14/17 MDRO Source:: ESBL URINE Past Surgical History: Bladder Surgery, Section, Cholecystectomy, Hysterectomy, Orthopedic Surgery, Tubal Ligation Additional Past Surgical History / Comment(s): R ovarian cystectomy, laparoscopic surgery for L ovary that had attached to the bowel, D&C, numerous lithotripsies, nephroscopies, cystoscopies and stents to ureters-none in place at this time, L robotic pyeloplasty with post op infection around kidney which then required a picc line/later removed (pt states was not MRSA), L rotator cuff repair, L wrist tendon surgery, colonoscopy Past Anesthesia/Blood Transfusion Reactions: Family History of Problems w/ Anesthesia Additional Past Anesthesia/Blood Transfusion Reaction / Comment(s): dad-hard time waking up due to enzyme problems in liver Past Psychological History: ADD/ADHD, Anxiety, Bipolar, Depression, PTSD Smoking Status: Current every day smoker Past Alcohol Use History: None Reported Past Drug Use History: None Reported - Past Family History Brother(s) Family Medical History: Cancer Additional Family Medical History / Comment(s): testicular Father Family Medical History: Coronary Artery Disease (CAD), CVA/TIA, Diabetes Mellitus, Renal Disease Additional Family Medical History / Comment(s): GLAUCOMA,NEUROPATHY HAD TRIPLE CABG, at 56yrs from renal disease. Mother Family Medical History: Hyperlipidemia Additional Family Medical History / Comment(s): DDD, HAD 3 vessel CABG AGE 54. General Exam Limitations: no limitations General appearance: alert, in no apparent distress, other (This is a well- developed, well-nourished adult female patient in no acute distress. Vital signs upon presentation are temperature 97.7F, pulse 99, respirations 18, blood pressure 130/86, pulse ox 100% on room air.) Eye exam: Present: normal appearance, PERRL, EOMI. Absent: scleral icterus, conjunctival injection, periorbital swelling ENT exam: Present: normal exam, normal oropharynx, mucous membranes moist Respiratory exam: Present: normal lung sounds bilaterally. Absent: respiratory distress, wheezes, rales, rhonchi, stridor Cardiovascular Exam: Present: regular rate, normal rhythm, normal heart sounds. Absent: systolic murmur, diastolic murmur, rubs, gallop, clicks GI/Abdominal exam: Present: soft, normal bowel sounds. Absent: distended, tenderness, guarding, rebound, rigid Back exam: Present: normal inspection, CVA tenderness (L). Absent: CVA tenderness (R) Neurological exam: Present: alert, oriented X3, CN II-XII intact Psychiatric exam: Present: normal affect, normal mood Skin exam: Present: warm, dry, intact, normal color. Absent: rash Course Vital Signs 11/01/19 11/01/19 00:08 02:23 Temperature 97.7 F 98 F Pulse Rate 99 86 Respiratory 18 18 Rate Blood Pressure 130/86 108/67 O2 Sat by Pulse 100 98 Oximetry Medical Decision Making - Medical Decision Making 44-year-old female patient presents to the emergency department today for evaluation of flank pain and persistent urinary tract infection. She denies fevers. Physical examination reveals left CVA tenderness. Labs reviewed and did reveal mildly elevated white blood cell count at 13.7. There are presence of red blood cells and white blood cells in the urine but no bacteria. I did review patient's previous urine culture from one week ago which was negative. She is afebrile normal vital signs. She will be discharged home with instructions to continue her current antibiotic. We did send her urine for culture. She is instructed to follow-up with her urologist and infectious disease for further evaluation. She was also reporting frequent watery diarrhea we did give a stool collection cup and order for C. diff due to frequent anabiotic use. Return parameters were discussed in detail. She verbalizes understanding and agrees with this plan. - Lab Data Result diagrams: 11/01/19 00:49 11/01/19 00:49 Lab Results 11/01/19 11/01/19 11/01/19 Range/Units 00:49 00:49 00:49 WBC 13.7 H (3.8-10.6) k/uL RBC 4.69 (3.80-5.40) m/uL Hgb 13.8 (11.4-16.0) gm/dL Hct 40.6 (34.0-46.0) % MCV 86.7 (80.0-100.0) fL MCH 29.5 (25.0-35.0) pg MCHC 34.0 (31.0-37.0) g/dL RDW 12.7 (11.5-15.5) % Plt Count 292 (150-450) k/uL Neutrophils % 54 % Lymphocytes % 35 % Monocytes % 4 % Eosinophils % 3 % Basophils % 1 % Neutrophils # 7.5 (1.3-7.7) k/uL Lymphocytes # 4.8 (1.0-4.8) k/uL Monocytes # 0.6 (0-1.0) k/uL Eosinophils # 0.5 (0-0.7) k/uL Basophils # 0.1 (0-0.2) k/uL Sodium 136 L (137-145) mmol/L Potassium 3.7 (3.5-5.1) mmol/L Chloride 106 (98-107) mmol/L Carbon Dioxide 20 L (22-30) mmol/L Anion Gap 10 mmol/L BUN 8 (7-17) mg/dL Creatinine 0.55 (0.52-1.04) mg/dL Est GFR (CKD-EPI)AfAm >90 (>60 ml/min/1.73 sqM) Est GFR (CKD-EPI)NonAf >90 (>60 ml/min/1.73 sqM) Glucose 228 H (74-99) mg/dL Calcium 9.5 (8.4-10.2) mg/dL Total Bilirubin 0.4 (0.2-1.3) mg/dL AST 31 (14-36) U/L ALT 31 (4-34) U/L Alkaline Phosphatase 103 (38-126) U/L Total Protein 7.1 (6.3-8.2) g/dL Albumin 4.3 (3.5-5.0) g/dL Lipase 302 H (23-300) U/L Urine Color Yellow Urine Appearance Cloudy H (Clear) Urine pH 6.0 (5.0-8.0) Ur Specific [place] 1.019 (1.001-1.035) Urine Protein Trace H (Negative) Urine Glucose (UA) 1+ H (Negative) Urine Ketones Negative (Negative) Urine Blood Trace H (Negative) Urine Nitrite Negative (Negative) Urine Bilirubin Negative (Negative) Urine Urobilinogen 2.0 (<2.0) mg/dL Ur Leukocyte Esterase Large H (Negative) Urine RBC 126 H (0-5) /hpf Urine WBC 179 H (0-5) /hpf Urine WBC Clumps Occasional H (None) /hpf Ur Squamous Epith Cells 6 H (0-4) /hpf Urine Mucus Rare H (None) /hpf Coronavirus (PCR) (Not Detectd) 11/01/19 Range/Units 01:11 WBC (3.8-10.6) k/uL RBC (3.80-5.40) m/uL Hgb (11.4-16.0) gm/dL Hct (34.0-46.0) % MCV (80.0-100.0) fL MCH (25.0-35.0) pg MCHC (31.0-37.0) g/dL RDW (11.5-15.5) % Plt Count (150-450) k/uL Neutrophils % % Lymphocytes % % Monocytes % % Eosinophils % % Basophils % % Neutrophils # (1.3-7.7) k/uL Lymphocytes # (1.0-4.8) k/uL Monocytes # (0-1.0) k/uL Eosinophils # (0-0.7) k/uL Basophils # (0-0.2) k/uL Sodium (137-145) mmol/L Potassium (3.5-5.1) mmol/L Chloride (98-107) mmol/L Carbon Dioxide (22-30) mmol/L Anion Gap mmol/L BUN (7-17) mg/dL Creatinine (0.52-1.04) mg/dL Est GFR (CKD-EPI)AfAm (>60 ml/min/1.73 sqM) Est GFR (CKD-EPI)NonAf (>60 ml/min/1.73 sqM) Glucose (74-99) mg/dL Calcium (8.4-10.2) mg/dL Total Bilirubin (0.2-1.3) mg/dL AST (14-36) U/L ALT (4-34) U/L Alkaline Phosphatase (38-126) U/L Total Protein (6.3-8.2) g/dL Albumin (3.5-5.0) g/dL Lipase (23-300) U/L Urine Color Urine Appearance (Clear) Urine pH (5.0-8.0) Ur Specific [place] (1.001-1.035) Urine Protein (Negative) Urine Glucose (UA) (Negative) Urine Ketones (Negative) Urine Blood (Negative) Urine Nitrite (Negative) Urine Bilirubin (Negative) Urine Urobilinogen (<2.0) mg/dL Ur Leukocyte Esterase (Negative) Urine RBC (0-5) /hpf Urine WBC (0-5) /hpf Urine WBC Clumps (None) /hpf Ur Squamous Epith Cells (0-4) /hpf Urine Mucus (None) /hpf Coronavirus (PCR) Not Detected (Not Detectd) - Radiology Data Radiology results: report reviewed, image reviewed KUB x-rays obtained. Report was reviewed in its entirety. Impression by Dr. Mack shows nonacute abdomen. No change. No evidence of urinary tract c alculus. Disposition Clinical Impression: Flank pain, Hematuria Disposition: HOME SELF-CARE Condition: Good Instructions (If sedation given, give patient instructions): Urinary Tract Infection in Women (ED), Flank Pain (ED) Additional Instructions: Increase fluids. Rest. Follow-up with your primary care physician for recheck in 1-2 days. Follow-up with infectious disease for further evaluation regarding your frequent urinary tract infections. Continue your antibiotics. Return to the emergency department immediately for any new, worsening, or concerning symptoms Is patient prescribed a controlled substance at d/c from ED?: No Referrals: Melchor Stevens MD [Primary Care Provider] - 1-2 days Елена Murray MD [STAFF PHYSICIAN] - 1-2 days Time of Disposition: 02:05
[2019-11-01 01:03] LABS: Basophils # (A) 0.1 k/uL (0-0.2); Basophils % (A) 1 %; Eosinophils # (A) 0.5 k/uL (0-0.7); Eosinophils % (A) 3 %; HCT 40.6 % (34.0-46.0); HGB 13.8 gm/dL (11.4-16.0); Lymphocytes # (A) 4.8 k/uL (1.0-4.8); Lymphocytes % (A) 35 %; MCH 29.5 pg (25.0-35.0); MCV 86.7 fL (80.0-100.0); Mean Platelet Volume 7.4; Monocytes # (A) 0.6 k/uL (0-1.0); Monocytes % (A) 4 %; Neutrophils # (A) 7.5 k/uL (1.3-7.7); Neutrophils % (A) 54 %; Platelet Count 292 k/uL (150-450); RBC 4.69 m/uL (3.80-5.40); RDW 12.7 % (11.5-15.5); WBC 13.7 k/uL (3.8-10.6)
[2019-11-01 01:10] LABS: Appearance,Urine Cloudy (Clear); Bilirubin,Urine Negative (Negative); Blood,Urine Trace (Negative); Color,Urine Yellow; Glucose,Urine (UA) 1+ (Negative); Ketones,Urine Negative (Negative); Leukocyte Esterase,Urine Large (Negative); Mucus,Urine Rare /hpf; Nitrite,Urine Negative (Negative); Protein,Urine Trace (Negative); RBC,Urine 126 /hpf (0-5); Specific Gravity,Urine 1.019 (1.001-1.035); Squamous Epithelial Cell,Urine 6 /hpf (0-4); WBC,Urine 179 /hpf (0-5)
[2019-11-01 01:12] LABS: ALT 31 U/L (4-34); AST 31 U/L (14-36); African American GFR (CKD) >90 (>60 ml/min/1.73 sqM); Albumin 4.3 g/dL (3.5-5.0); Alkaline Phosphatase 103 U/L (38-126); Anion Gap 10 mmol/L; Blood Urea Nitrogen 8 mg/dL (7-17); Calcium 9.5 mg/dL (8.4-10.2); Carbon Dioxide 20 mmol/L (22-30); Chloride 106 mmol/L (98-107); Glucose 228 mg/dL (74-99); Non-African American GFR(CKD) >90 (>60 ml/min/1.73 sqM); Potassium 3.7 mmol/L (3.5-5.1); Sodium 136 mmol/L (137-145); Total Bilirubin 0.4 mg/dL (0.2-1.3); Total Protein 7.1 g/dL (6.3-8.2)
--- NOTE | 2019-11-01 01:26 | XR ---
EXAMINATION TYPE: XR KUB DATE OF EXAM: 11/01/2019 COMPARISON: 10/11/2019 HISTORY: Left side abdominal pain. Left kidney pain for one month. TECHNIQUE: 2 views upright FINDINGS: There are clips from cholecystectomy. There is no sign of intestinal obstruction or pneumop eritoneum. I see no pathologic calcifications over the kidneys. Lung bases are clear. There is no pineda dence of a mass. Bony structures are intact. IMPRESSION: Nonacute abdomen. No change. No evidence of urinary tract calculus.
[2019-11-01] MEDS ORDERED: HYDROmorphone 1 MG/ML 1 ML SYRINGE IVP STA (01:36)
[2019-11-01 02:24] VITALS: BP 108/67; PULSE 86; TEMP 98
== END 2019-11-01 02:24 | disposition home or self-care (01) ==
LOC: EC 00:04
DX: Z03.818 Encounter for observation for suspected exposure to other biological agents ruled out (principal); R10.9 Unspecified abdominal pain; R31.9 Hematuria, unspecified; D72.829 Elevated white blood cell count, unspecified; R82.998 Other abnormal findings in urine; R11.10 Vomiting, unspecified; R19.7 Diarrhea, unspecified; E11.9 Type 2 diabetes mellitus without complications; E78.5 Hyperlipidemia, unspecified; I10 Essential (primary) hypertension; E28.2 Polycystic ovarian syndrome; F32.9 Major depressive disorder, single episode, unspecified; F41.9 Anxiety disorder, unspecified; F90.9 Attention-deficit hyperactivity disorder, unspecified type; F43.10 Post-traumatic stress disorder, unspecified; F17.200 Nicotine dependence, unspecified, uncomplicated; Z79.84 Long term (current) use of oral hypoglycemic drugs; Z79.899 Other long term (current) drug therapy; Z88.0 Allergy status to penicillin; Z88.2 Allergy status to sulfonamides; Z91.018 Allergy to other foods; Z91.041 Radiographic dye allergy status; Z88.5 Allergy status to narcotic agent; Z88.8 Allergy status to other drugs, medicaments and biological substances; Z87.442 Personal history of urinary calculi; Z98.890 Other specified postprocedural states; Z90.49 Acquired absence of other specified parts of digestive tract; Z87.440 Personal history of urinary (tract) infections
CPT/HCPCS: 99284 ×2; 96374 ×2; 96375 ×2; 96361 ×2; 36415; 80053; 83690; 85025; 81001; 87086; 87635; 74018; J1885; J1170

== ENCOUNTER 2019-11-12 22:27 | Emergency (ER) | payer OTHER ==
[2019-11-12] MEDS ORDERED: HYDROmorphone 1 MG/ML 1 ML SYRINGE IVP STA (22:44)
[2019-11-12] MEDS ORDERED: SODIUM CHLORIDE 0.9% 1,000 ML IV STA (22:44)
[2019-11-12] MEDS ORDERED: ONDANSETRON 4 MG/2 ML VIAL IVP STA (22:44)
--- NOTE | 2019-11-12 23:12 | ED ---
Abdominal Pain HPI - General Chief Complaint: Abdominal Pain Stated Complaint: Kidney Stones Time Seen by Provider: 11/12/19 22:35 Source: patient Mode of arrival: ambulatory Limitations: no limitations - History of Present Illness Initial Comments: 44-year-old female patient presents to the emergency department today for evaluation of left flank pain. Patient states she has chronic flank pain due to multiple kidney stones. States over the last month she has been treated for urinary tract infection, kidney stones, and possibly septic stone. States that she did just complete a course of Cipro. States yesterday show temperature 102F. States today she is having increase in her flank pain, vomiting, and hematuria. She states she did see her primary doctor today and was given a dose of Toradol around 7:30 PM. She has been trying to establish with a urologist from [place] but has not received a call back. Patient denies any recent rash, fever, chills, cough, shortness of breath, chest pain, diarrhea, constipation, numbness, tingling, dizziness, weakness, headache, visual changes, or any other complaints. - Related Data Home Medications Medication Instructions Recorded Confirmed oxyCODONE-APAP 10-325MG [Percocet 1 tab PO QID PRN 08/29/17 08/30/19 10-325 mg] OXcarbazepine [Trileptal] 300 mg PO BID 02/05/18 08/30/19 Mirtazapine [Remeron] 15 mg PO HS 03/12/18 08/30/19 PARoxetine HCL [Paxil] 40 mg PO DAILY 03/12/18 08/30/19 Topiramate [Topamax] 100 mg PO BID 03/12/18 08/30/19 PARoxetine [Paxil] 20 mg PO DAILY 06/04/18 08/30/19 ARIPiprazole [Abilify] 10 mg PO DAILY 07/16/19 08/30/19 Atorvastatin [Lipitor] 40 mg PO DAILY 07/16/19 08/30/19 Benzoyl Peroxide [Benzac AC Wash] 1 applic TOPICAL BID 07/16/19 08/30/19 Clindamycin 1% Pledgets 1 applic TOPICAL BID 07/16/19 08/30/19 Loratadine [Claritin] 10 mg PO DAILY 07/16/19 08/30/19 metFORMIN HCL 1,000 mg PO BID 07/16/19 08/30/19 Previous Rx's Medication Instructions Recorded Lisinopril [Zestril] 10 mg PO HS tab 08/02/17 SUMAtriptan SUCCINATE [Imitrex] 100 mg PO DAILY PRN tab 08/02/17 Cefuroxime Axetil [Ceftin] 500 mg PO BID #14 tab 07/17/19 Ciprofloxacin HCl [Cipro] 500 mg PO Q12H 7 Days #14 tab 09/03/19 Ciprofloxacin HCl [Cipro] 500 mg PO Q12HR #14 tablet 09/17/19 Cephalexin [Keflex] 500 mg PO QID 10 Days #40 cap 09/28/19 Ondansetron Odt [Zofran Odt] 4 mg PO Q8HR PRN #10 tab 09/28/19 Cephalexin [Keflex] 500 mg PO Q12HR #20 cap 10/23/19 Cephalexin [Keflex] 500 mg PO Q6HR 14 Days #48 cap 10/26/19 Allergies Allergy/AdvReac Type Severity Reaction Status Date / Time bupropion HCl Allergy Rash/Hives Verified 11/12/19 22:33 [From Wellbutrin] divalproex sodium Allergy Unknown Verified 11/12/19 22:33 [From Depakote] fentanyl Allergy Swelling Verified 11/12/19 22:33 Iodinated Contrast Media Allergy Anaphylaxis Verified 11/12/19 22:33 [Iodinated Contrast Media - IV Dye] orange juice [[place]] Allergy Rash/Hives Verified 11/12/19 22:33 Sulfa (Sulfonamide Allergy Rash/Hives Verified 11/12/19 22:33 Antibiotics) Penicillins AdvReac Nausea & Verified 11/12/19 22:33 Vomiting Review of Systems ROS Statement: Those systems with pertinent positive or pertinent negative responses have been documented in the HPI. ROS Other: All systems not noted in ROS Statement are negative. 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 History of Any Multi-Drug Resistant Organisms: ESBL Date of last positivie culture/infection: 05/14/17 MDRO Source:: ESBL URINE Past Surgical History: Bladder Surgery, Section, Cholecystectomy, Hysterectomy, Orthopedic Surgery, Tubal Ligation Additional Past Surgical History / Comment(s): R ovarian cystectomy, laparoscopic surgery for L ovary that had attached to the bowel, D&C, numerous lithotripsies, nephroscopies, cystoscopies and stents to ureters-none in place at this time, L robotic pyeloplasty with post op infection around kidney which then required a picc line/later removed (pt states was not MRSA), L rotator cuff repair, L wrist tendon surgery, colonoscopy Past Anesthesia/Blood Transfusion Reactions: Family History of Problems w/ Anesthesia Additional Past Anesthesia/Blood Transfusion Reaction / Comment(s): dad-hard time waking up due to enzyme problems in liver Past Psychological History: ADD/ADHD, Anxiety, Bipolar, Depression, PTSD Smoking Status: Current every day smoker Past Alcohol Use History: None Reported Past Drug Use History: None Reported - Past Family History Brother(s) Family Medical History: Cancer Additional Family Medical History / Comment(s): testicular Father Family Medical History: Coronary Artery Disease (CAD), CVA/TIA, Diabetes Mellitus, Renal Disease Additional Family Medical History / Comment(s): GLAUCOMA,NEUROPATHY HAD TRIPLE CABG, at 56yrs from renal disease. Mother Family Medical History: Hyperlipidemia Additional Family Medical History / Comment(s): DDD, HAD 3 vessel CABG AGE 54. General Exam Limitations: no limitations General appearance: alert, in no apparent distress, other (Physical well- developed, well-nourished adult female patient in no acute distress. Vital signs upon presentation are temperature 97.7F, pulse 104, respirations 18, blood pressure 123/82, pulse ox 99% on room air.) Respiratory exam: Present: normal lung sounds bilaterally. Absent: respiratory distress, wheezes, rales, rhonchi, stridor Cardiovascular Exam: Present: regular rate, normal rhythm, normal heart sounds. Absent: systolic murmur, diastolic murmur, rubs, gallop, clicks GI/Abdominal exam: Present: soft, normal bowel sounds. Absent: distended, tenderness, guarding, rebound, rigid Back exam: Present: normal inspection, CVA tenderness (L). Absent: CVA tenderness (R) Neurological exam: Present: alert, oriented X3, CN II-XII intact Psychiatric exam: Present: normal affect, normal mood Skin exam: Present: warm, dry, intact, normal color. Absent: rash Course Vital Signs 11/12/19 11/12/19 22:28 23:16 Temperature 97.7 F Pulse Rate 104 H 89 Respiratory 18 20 Rate Blood Pressure 123/82 116/78 O2 Sat by Pulse 99 97 Oximetry Medical Decision Making - Medical Decision Making 44-year-old female patient presented to the emergency department today for evaluation of left flank pain, vomiting, hematuria. Physical examination did reveal left CVA tenderness. Labs reviewed and did reveal mildly elevated white blood cell count. Urinalysis showed 27 white blood cells, we'll send this for culture. Blood glucose is elevated. She'll be given a small dose of NovoLog here in the department. She was given pain medications, she does feel better. She'll be discharged to follow-up with her primary care physician and urology as soon as possible. Return parameters were discussed in detail. She verbalizes understanding and agrees with this plan. - Lab Data Result diagrams: 11/12/19 23:15 11/12/19 23:15 Lab Results 11/12/19 11/12/19 11/12/19 Range/Units 23:15 23:15 23:35 WBC 11.4 H (3.8-10.6) k/uL RBC 4.54 (3.80-5.40) m/uL Hgb 13.4 (11.4-16.0) gm/dL Hct 40.1 (34.0-46.0) % MCV 88.4 (80.0-100.0) fL MCH 29.6 (25.0-35.0) pg MCHC 33.4 (31.0-37.0) g/dL RDW 12.8 (11.5-15.5) % Plt Count 263 (150-450) k/uL Neutrophils % 50 % Lymphocytes % 40 % Monocytes % 5 % Eosinophils % 3 % Basophils % 1 % Neutrophils # 5.7 (1.3-7.7) k/uL Lymphocytes # 4.6 (1.0-4.8) k/uL Monocytes # 0.6 (0-1.0) k/uL Eosinophils # 0.3 (0-0.7) k/uL Basophils # 0.1 (0-0.2) k/uL Sodium 137 (137-145) mmol/L Potassium 3.9 (3.5-5.1) mmol/L Chloride 104 (98-107) mmol/L Carbon Dioxide 21 L (22-30) mmol/L Anion Gap 12 mmol/L BUN 10 (7-17) mg/dL Creatinine 0.54 (0.52-1.04) mg/dL Est GFR (CKD-EPI)AfAm >90 (>60 ml/min/1.73 sqM) Est GFR (CKD-EPI)NonAf >90 (>60 ml/min/1.73 sqM) Glucose 297 H (74-99) mg/dL Calcium 9.4 (8.4-10.2) mg/dL Total Bilirubin 0.3 (0.2-1.3) mg/dL AST 37 H (14-36) U/L ALT 33 (4-34) U/L Alkaline Phosphatase 106 (38-126) U/L Total Protein 7.1 (6.3-8.2) g/dL Albumin 4.4 (3.5-5.0) g/dL Amylase 40 (30-110) U/L Lipase 242 (23-300) U/L Urine Color Yellow Urine Appearance Clear (Clear) Urine pH 6.0 (5.0-8.0) Ur Specific [place] 1.026 (1.001-1.035) Urine Protein Trace H (Negative) Urine Glucose (UA) 4+ H (Negative) Urine Ketones Negative (Negative) Urine Blood Negative (Negative) Urine Nitrite Negative (Negative) Urine Bilirubin Negative (Negative) Urine Urobilinogen <2.0 (<2.0) mg/dL Ur Leukocyte Esterase Moderate H (Negative) Urine RBC 7 H (0-5) /hpf Urine WBC 29 H (0-5) /hpf Ur Squamous Epith Cells 2 (0-4) /hpf Urine Bacteria Occasional H (None) /hpf Urine Mucus Rare H (None) /hpf - Radiology Data Radiology results: report reviewed, image reviewed Two-view x-ray of the abdomen is obtained. Report was reviewed in its entirety. Impression by Dr. Mack shows nonacute abdomen. No change. Disposition Clinical Impression: Left flank pain, Hyperglycemia Disposition: HOME SELF-CARE Condition: Good Instructions (If sedation given, give patient instructions): Flank Pain (ED), Diabetic Hyperglycemia (ED) Additional Instructions: Increase fluids. Rest. Follow-up with your primary care physician for recheck in 1-2 days. Return to the emergency department immediately for any new, worsening, or concerning symptoms. Is patient prescribed a controlled substance at d/c from ED?: No Referrals: Melchor Stevens MD [Primary Care Provider] - 1-2 days Time of Disposition: 00:16
[2019-11-12 23:40] LABS: Basophils # (A) 0.1 k/uL (0-0.2); Basophils % (A) 1 %; Eosinophils # (A) 0.3 k/uL (0-0.7); Eosinophils % (A) 3 %; HCT 40.1 % (34.0-46.0); HGB 13.4 gm/dL (11.4-16.0); Lymphocytes # (A) 4.6 k/uL (1.0-4.8); Lymphocytes % (A) 40 %; MCH 29.6 pg (25.0-35.0); MCHC 33.4 g/dL (31.0-37.0); MCV 88.4 fL (80.0-100.0); Mean Platelet Volume 7.4; Monocytes # (A) 0.6 k/uL (0-1.0); Monocytes % (A) 5 %; Neutrophils # (A) 5.7 k/uL (1.3-7.7); Neutrophils % (A) 50 %; Platelet Count 263 k/uL (150-450); RBC 4.54 m/uL (3.80-5.40); RDW 12.8 % (11.5-15.5); WBC 11.4 k/uL (3.8-10.6)
--- NOTE | 2019-11-12 23:51 | XR ---
EXAMINATION TYPE: XR KUB DATE OF EXAM: 11/12/2019 COMPARISON: 11/01/2019 HISTORY: Left side pain TECHNIQUE: 2 views upright FINDINGS: There are clips from cholecystectomy. There is no sign of intestinal obstruction or pneumop eritoneum. Fecal pattern is normal. Lung bases are clear. There is no evidence of a mass. There are n o pathologic calcifications over the kidneys. IMPRESSION: Nonacute abdomen. No change.
[2019-11-12 23:55] LABS: Appearance,Urine Clear (Clear); Bacteria,Urine Occasional /hpf; Bilirubin,Urine Negative (Negative); Blood,Urine Negative (Negative); Color,Urine Yellow; Glucose,Urine (UA) 4+ (Negative); Ketones,Urine Negative (Negative); Leukocyte Esterase,Urine Moderate (Negative); Mucus,Urine Rare /hpf; Nitrite,Urine Negative (Negative); Protein,Urine Trace (Negative); RBC,Urine 7 /hpf (0-5); Specific Gravity,Urine 1.026 (1.001-1.035); Squamous Epithelial Cell,Urine 2 /hpf (0-4); Urobilinogen,Urine <2.0 mg/dL (<2.0); WBC,Urine 29 /hpf (0-5)
[2019-11-13 00:07] LABS: ALT 33 U/L (4-34); AST 37 U/L (14-36); African American GFR (CKD) >90 (>60 ml/min/1.73 sqM); Albumin 4.4 g/dL (3.5-5.0); Alkaline Phosphatase 106 U/L (38-126); Amylase 40 U/L (30-110); Anion Gap 12 mmol/L; Blood Urea Nitrogen 10 mg/dL (7-17); Calcium 9.4 mg/dL (8.4-10.2); Carbon Dioxide 21 mmol/L (22-30); Chloride 104 mmol/L (98-107); Glucose 297 mg/dL (74-99); Non-African American GFR(CKD) >90 (>60 ml/min/1.73 sqM); Potassium 3.9 mmol/L (3.5-5.1); Sodium 137 mmol/L (137-145); Total Bilirubin 0.3 mg/dL (0.2-1.3); Total Protein 7.1 g/dL (6.3-8.2)
[2019-11-13] MEDS ORDERED: INSULIN ASPART (NovoLOG) 100 UNIT/ML VIAL SQ STA (00:11)
[2019-11-13] MEDS ORDERED: HYDROmorphone 1 MG/ML 1 ML SYRINGE IVP STA (00:18)
[2019-11-13 00:41] VITALS: BP 106/76; PULSE 88; RESP 17; TEMP 98.5
== END 2019-11-13 00:38 | disposition home or self-care (01) ==
LOC: EC 22:27
DX: E11.65 Type 2 diabetes mellitus with hyperglycemia (principal); R10.9 Unspecified abdominal pain; D72.829 Elevated white blood cell count, unspecified; E11.9 Type 2 diabetes mellitus without complications; E78.5 Hyperlipidemia, unspecified; I10 Essential (primary) hypertension; F41.9 Anxiety disorder, unspecified; F31.9 Bipolar disorder, unspecified; F17.200 Nicotine dependence, unspecified, uncomplicated; Z79.84 Long term (current) use of oral hypoglycemic drugs; Z79.899 Other long term (current) drug therapy; Z88.8 Allergy status to other drugs, medicaments and biological substances; Z88.5 Allergy status to narcotic agent; Z88.0 Allergy status to penicillin; Z88.2 Allergy status to sulfonamides; Z91.018 Allergy to other foods; Z91.041 Radiographic dye allergy status; Z90.49 Acquired absence of other specified parts of digestive tract; Z90.710 Acquired absence of both cervix and uterus; Z98.51 Tubal ligation status
CPT/HCPCS: 36415 ×2; 80053; 82150; 83605; 83690; 85025; 81001; 87086; 74018; 99284; 96374; 96375; 96376; 96361; J2405; J1170 ×2

== ENCOUNTER 2019-11-22 00:30 | Emergency (ER) | payer OTHER ==
[2019-11-22] MEDS ORDERED: HYDROmorphone 1 MG/ML 1 ML SYRINGE IVP STA (01:03)
[2019-11-22] MEDS ORDERED: ONDANSETRON 4 MG/2 ML VIAL IVP STA (01:03)
[2019-11-22 01:30] LABS: Basophils # (A) 0.1 k/uL (0-0.2); Basophils % (A) 1 %; Eosinophils # (A) 0.3 k/uL (0-0.7); Eosinophils % (A) 3 %; HCT 39.6 % (34.0-46.0); HGB 13.1 gm/dL (11.4-16.0); Lymphocytes % (A) 42 %; MCH 29.4 pg (25.0-35.0); MCHC 33.1 g/dL (31.0-37.0); MCV 88.8 fL (80.0-100.0); Mean Platelet Volume 7.6; Monocytes # (A) 0.5 k/uL (0-1.0); Monocytes % (A) 5 %; Neutrophils # (A) 4.7 k/uL (1.3-7.7); Neutrophils % (A) 48 %; Platelet Count 228 k/uL (150-450); RBC 4.46 m/uL (3.80-5.40); RDW 12.9 % (11.5-15.5); WBC 9.7 k/uL (3.8-10.6)
--- NOTE | 2019-11-22 01:30 | XR ---
EXAMINATION TYPE: XR KUB DATE OF EXAM: 11/22/2019 COMPARISON: 11/12/2019 HISTORY: Abdominal pain TECHNIQUE: Single view upright FINDINGS: There is no sign of intestinal obstruction or pneumoperitoneum. Fecal pattern is normal. Th ere are clips from cholecystectomy. Lung bases are clear. There are no pathologic calcifications over the kidneys. IMPRESSION: Nonacute abdomen. No change.
--- NOTE | 2019-11-22 01:31 | ED ---
Abdominal Pain HPI - General Chief Complaint: Abdominal Pain Stated Complaint: LT flank pain, blood in urine Time Seen by Provider: 11/22/19 00:48 Source: patient, RN notes reviewed, old records reviewed Mode of arrival: ambulatory Limitations: no limitations - History of Present Illness Initial Comments: Patient is a 44-year-old female presents emergency Department today with complaint of bloody urine, and left-sided flank pain. She states emergency department multiple times the past few months with these complaints. She reports that she finished a course of Cipro but no recent antibiotics in the past week. She states she is here for pain management. She states that she does see Dr. Ortega from urology but not within the past 2 weeks. - Related Data Home Medications Medication Instructions Recorded Confirmed oxyCODONE-APAP 10-325MG [Percocet 1 tab PO QID PRN 08/29/17 08/30/19 10-325 mg] OXcarbazepine [Trileptal] 300 mg PO BID 02/05/18 08/30/19 Mirtazapine [Remeron] 15 mg PO HS 03/12/18 08/30/19 PARoxetine HCL [Paxil] 40 mg PO DAILY 03/12/18 08/30/19 Topiramate [Topamax] 100 mg PO BID 03/12/18 08/30/19 PARoxetine [Paxil] 20 mg PO DAILY 06/04/18 08/30/19 ARIPiprazole [Abilify] 10 mg PO DAILY 07/16/19 08/30/19 Atorvastatin [Lipitor] 40 mg PO DAILY 07/16/19 08/30/19 Benzoyl Peroxide [Benzac AC Wash] 1 applic TOPICAL BID 07/16/19 08/30/19 Clindamycin 1% Pledgets 1 applic TOPICAL BID 07/16/19 08/30/19 Loratadine [Claritin] 10 mg PO DAILY 07/16/19 08/30/19 metFORMIN HCL 1,000 mg PO BID 07/16/19 08/30/19 Previous Rx's Medication Instructions Recorded Lisinopril [Zestril] 10 mg PO HS tab 08/02/17 SUMAtriptan SUCCINATE [Imitrex] 100 mg PO DAILY PRN tab 08/02/17 Cefuroxime Axetil [Ceftin] 500 mg PO BID #14 tab 07/17/19 Ciprofloxacin HCl [Cipro] 500 mg PO Q12H 7 Days #14 tab 09/03/19 Ciprofloxacin HCl [Cipro] 500 mg PO Q12HR #14 tablet 09/17/19 Cephalexin [Keflex] 500 mg PO QID 10 Days #40 cap 09/28/19 Ondansetron Odt [Zofran Odt] 4 mg PO Q8HR PRN #10 tab 09/28/19 Cephalexin [Keflex] 500 mg PO Q12HR #20 cap 10/23/19 Cephalexin [Keflex] 500 mg PO Q6HR 14 Days #48 cap 10/26/19 Allergies Allergy/AdvReac Type Severity Reaction Status Date / Time bupropion HCl Allergy Rash/Hives Verified 11/22/19 00:41 [From Wellbutrin] divalproex sodium Allergy Unknown Verified 11/22/19 00:41 [From Depakote] fentanyl Allergy Swelling Verified 11/22/19 00:41 Iodinated Contrast Media Allergy Anaphylaxis Verified 11/22/19 00:41 [Iodinated Contrast Media - IV Dye] orange juice [[place]] Allergy Rash/Hives Verified 11/22/19 00:41 Sulfa (Sulfonamide Allergy Rash/Hives Verified 11/22/19 00:41 Antibiotics) Penicillins AdvReac Nausea & Verified 11/22/19 00:41 Vomiting Review of Systems ROS Statement: Those systems with pertinent positive or pertinent negative responses have been documented in the HPI. ROS Other: All systems not noted in ROS Statement are negative. 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 History of Any Multi-Drug Resistant Organisms: ESBL Date of last positivie culture/infection: 05/14/17 MDRO Source:: ESBL URINE Past Surgical History: Bladder Surgery, Section, Cholecystectomy, Hysterectomy, Orthopedic Surgery, Tubal Ligation Additional Past Surgical History / Comment(s): R ovarian cystectomy, laparoscopic surgery for L ovary that had attached to the bowel, D&C, numerous lithotripsies, nephroscopies, cystoscopies and stents to ureters-none in place at this time, L robotic pyeloplasty with post op infection around kidney which t hen required a picc line/later removed (pt states was not MRSA), L rotator cuff repair, L wrist tendon surgery, colonoscopy Past Anesthesia/Blood Transfusion Reactions: Family History of Problems w/ Anesthesia Additional Past Anesthesia/Blood Transfusion Reaction / Comment(s): dad-hard time waking up due to enzyme problems in liver Past Psychological History: ADD/ADHD, Anxiety, Bipolar, Depression, PTSD Smoking Status: Current every day smoker Past Alcohol Use History: None Reported Past Drug Use History: None Reported - Past Family History Brother(s) Family Medical History: Cancer Additional Family Medical History / Comment(s): testicular Father Family Medical History: Coronary Artery Disease (CAD), CVA/TIA, Diabetes Mellitus, Renal Disease Additional Family Medical History / Comment(s): GLAUCOMA,NEUROPATHY HAD TRIPLE CABG, at 56yrs from renal disease. Mother Family Medical History: Hyperlipidemia Additional Family Medical History / Comment(s): DDD, HAD 3 vessel CABG AGE 54. General Exam - General Exam Comments Initial Comments: 44-year-old female. Alert and oriented 3. No acute distress. Limitations: no limitations General appearance: alert, in no apparent distress Head exam: Present: atraumatic, normocephalic, normal inspection Eye exam: Present: normal appearance, PERRL, EOMI. Absent: scleral icterus, conjunctival injection, periorbital swelling ENT exam: Present: normal exam, mucous membranes moist Neck exam: Present: normal inspection. Absent: tenderness, meningismus, lymphadenopathy Respiratory exam: Present: normal lung sounds bilaterally. Absent: respiratory distress, wheezes, rales, rhonchi, stridor Cardiovascular Exam: Present: regular rate, normal rhythm, normal heart sounds. Absent: systolic murmur, diastolic murmur, rubs, gallop, clicks GI/Abdominal exam: Present: soft, normal bowel sounds, other (L CVA tenderness). Absent: distended, tenderness, guarding, rebound, rigid Extremities exam: Present: normal inspection, full ROM, normal capillary refill. Absent: tenderness, pedal edema, joint swelling, calf tenderness Back exam: Present: normal inspection Neurological exam: Present: alert, oriented X3, CN II-XII intact Psychiatric exam: Present: normal affect, normal mood Skin exam: Present: warm, dry, intact, normal color. Absent: rash Course Vital Signs 11/22/19 00:38 Temperature 97.6 F Pulse Rate 94 Respiratory 18 Rate Blood Pressure 121/86 O2 Sat by Pulse 99 Oximetry Medical Decision Making - Medical Decision Making Patient is a 44-year-old female presents emergency room today with flank pain and hematuria. Patient does follow with Dr. Ortega. This time she has normal vital signs. No significant distress. She did have some left CVA tenderness on exam. Patient's urinalysis is positive for hematuria. On the past 3 or and culture as it is been negative for bacterial growth. She has no recent fevers at this time and CBC is unremarkable. I discussed at this time Patient should follow with her urologist in this time. Patient KUB shows nonobstructive bowel gas pattern. Patient is agreeable treatment plan will comply. Return parameters were discussed. - Lab Data Result diagrams: 11/22/19 01:15 11/22/19 01:15 Lab Results 11/22/19 11/22/19 11/22/19 Range/Units 01:10 01:15 01:15 WBC 9.7 (3.8-10.6) k/uL RBC 4.46 (3.80-5.40) m/uL Hgb 13.1 (11.4-16.0) gm/dL Hct 39.6 (34.0-46.0) % MCV 88.8 (80.0-100.0) fL MCH 29.4 (25.0-35.0) pg MCHC 33.1 (31.0-37.0) g/dL RDW 12.9 (11.5-15.5) % Plt Count 228 (150-450) k/uL Neutrophils % 48 % Lymphocytes % 42 % Monocytes % 5 % Eosinophils % 3 % Basophils % 1 % Neutrophils # 4.7 (1.3-7.7) k/uL Lymphocytes # 4.0 (1.0-4.8) k/uL Monocytes # 0.5 (0-1.0) k/uL Eosinophils # 0.3 (0-0.7) k/uL Basophils # 0.1 (0-0.2) k/uL PT 9.4 (9.0-12.0) sec INR 0.9 (<1.2) APTT 21.6 L (22.0-30.0) sec Sodium (137-145) mmol/L Potassium (3.5-5.1) mmol/L Chloride (98-107) mmol/L Carbon Dioxide (22-30) mmol/L Anion Gap mmol/L BUN (7-17) mg/dL Creatinine (0.52-1.04) mg/dL Est GFR (CKD-EPI)AfAm (>60 ml/min/1.73 sqM) Est GFR (CKD-EPI)NonAf (>60 ml/min/1.73 sqM) Glucose (74-99) mg/dL Calcium (8.4-10.2) mg/dL Total Bilirubin (0.2-1.3) mg/dL AST (14-36) U/L ALT (4-34) U/L Alkaline Phosphatase (38-126) U/L Total Protein (6.3-8.2) g/dL Albumin (3.5-5.0) g/dL Amylase (30-110) U/L Lipase (23-300) U/L Urine Color Yellow Urine Appearance Clear (Clear) Urine pH 6.0 (5.0-8.0) Ur Specific [place] 1.017 (1.001-1.035) Urine Protein Trace H (Negative) Urine Glucose (UA) 4+ H (Negative) Urine Ketones Negative (Negative) Urine Blood Large H (Negative) Urine Nitrite Negative (Negative) Urine Bilirubin Negative (Negative) Urine Urobilinogen <2.0 (<2.0) mg/dL Ur Leukocyte Esterase Large H (Negative) Urine RBC >182 H (0-5) /hpf Urine WBC 24 H (0-5) /hpf Ur Squamous Epith Cells 4 (0-4) /hpf Urine Bacteria Rare H (None) /hpf Urine Mucus Rare H (None) /hpf 11/22/19 Range/Units 01:15 WBC (3.8-10.6) k/uL RBC (3.80-5.40) m/uL Hgb (11.4-16.0) gm/dL Hct (34.0-46.0) % MCV (80.0-100.0) fL MCH (25.0-35.0) pg MCHC (31.0-37.0) g/dL RDW (11.5-15.5) % Plt Count (150-450) k/uL Neutrophils % % Lymphocytes % % Monocytes % % Eosinophils % % Basophils % % Neutrophils # (1.3-7.7) k/uL Lymphocytes # (1.0-4.8) k/uL Monocytes # (0-1.0) k/uL Eosinophils # (0-0.7) k/uL Basophils # (0-0.2) k/uL PT (9.0-12.0) sec INR (<1.2) APTT (22.0-30.0) sec Sodium 136 L (137-145) mmol/L Potassium 3.9 (3.5-5.1) mmol/L Chloride 107 (98-107) mmol/L Carbon Dioxide 21 L (22-30) mmol/L Anion Gap 8 mmol/L BUN 6 L (7-17) mg/dL Creatinine 0.58 (0.52-1.04) mg/dL Est GFR (CKD-EPI)AfAm >90 (>60 ml/min/1.73 sqM) Est GFR (CKD-EPI)NonAf >90 (>60 ml/min/1.73 sqM) Glucose 314 H (74-99) mg/dL Calcium 9.3 (8.4-10.2) mg/dL Total Bilirubin 0.3 (0.2-1.3) mg/dL AST 38 H (14-36) U/L ALT 36 H (4-34) U/L Alkaline Phosphatase 105 (38-126) U/L Total Protein 6.6 (6.3-8.2) g/dL Albumin 3.9 (3.5-5.0) g/dL Amylase 32 (30-110) U/L Lipase 147 (23-300) U/L Urine Color Urine Appearance (Clear) Urine pH (5.0-8.0) Ur Specific [place] (1.001-1.035) Urine Protein (Negative) Urine Glucose (UA) (Negative) Urine Ketones (Negative) Urine Blood (Negative) Urine Nitrite (Negative) Urine Bilirubin (Negative) Urine Urobilinogen (<2.0) mg/dL Ur Leukocyte Esterase (Negative) Urine RBC (0-5) /hpf Urine WBC (0-5) /hpf Ur Squamous Epith Cells (0-4) /hpf Urine Bacteria (None) /hpf Urine Mucus (None) /hpf - Radiology Data Radiology results: report reviewed KUB is negative for any acute process. No change. Disposition Clinical Impression: Flank pain, Hematuria Disposition: ADMITTED IP TO THIS [facility] Condition: Stable Instructions (If sedation given, give patient instructions): Flank Pain (ED) Additional Instructions: Use at home medication. Please follow up with family doctor if symptoms have not improved over the next two days. Please return to the emergency room if your symptoms increase or worsen or for any other concerns. Is patient prescribed a controlled substance at d/c from ED?: No Referrals: Melchor Stevens MD [Primary Care Provider] - 1-2 days Malachi Ortega MD [STAFF PHYSICIAN] - 1-2 days Time of Disposition: 02:20
[2019-11-22 01:32] LABS: Appearance,Urine Clear (Clear); Bacteria,Urine Rare /hpf; Bilirubin,Urine Negative (Negative); Blood,Urine Large (Negative); Color,Urine Yellow; Glucose,Urine (UA) 4+ (Negative); Ketones,Urine Negative (Negative); Leukocyte Esterase,Urine Large (Negative); Mucus,Urine Rare /hpf; Nitrite,Urine Negative (Negative); Protein,Urine Trace (Negative); RBC,Urine >182 /hpf (0-5); Specific Gravity,Urine 1.017 (1.001-1.035); Squamous Epithelial Cell,Urine 4 /hpf (0-4); Urobilinogen,Urine <2.0 mg/dL (<2.0); WBC,Urine 24 /hpf (0-5)
[2019-11-22 01:39] LABS: ALT 36 U/L (4-34); AST 38 U/L (14-36); African American GFR (CKD) >90 (>60 ml/min/1.73 sqM); Albumin 3.9 g/dL (3.5-5.0); Alkaline Phosphatase 105 U/L (38-126); Amylase 32 U/L (30-110); Anion Gap 8 mmol/L; Blood Urea Nitrogen 6 mg/dL (7-17); Calcium 9.3 mg/dL (8.4-10.2); Carbon Dioxide 21 mmol/L (22-30); Chloride 107 mmol/L (98-107); Glucose 314 mg/dL (74-99); Non-African American GFR(CKD) >90 (>60 ml/min/1.73 sqM); Potassium 3.9 mmol/L (3.5-5.1); Sodium 136 mmol/L (137-145); Total Bilirubin 0.3 mg/dL (0.2-1.3); Total Protein 6.6 g/dL (6.3-8.2)
[2019-11-22 01:58] LABS: INR 0.9 (<1.2); Prothrombin Time 9.4 sec (9.0-12.0)
[2019-11-22 02:04] LABS: Partial Thromboplastin Time 21.6 sec (22.0-30.0)
[2019-11-22] MEDS ORDERED: HYDROcodone/APAP 5-325MG 1 EACH TAB PO STA (02:27)
[2019-11-22] MEDS ORDERED: IBUPROFEN 600 MG TAB PO STA (02:27)
[2019-11-22 02:42] VITALS: BP 122/64; PULSE 92; RESP 16; TEMP 98.1
== END 2019-11-22 02:41 | disposition other institution (70) ==
LOC: EC 00:30
DX: R10.9 Unspecified abdominal pain (principal); R31.9 Hematuria, unspecified; E11.9 Type 2 diabetes mellitus without complications; I10 Essential (primary) hypertension; E78.5 Hyperlipidemia, unspecified; F31.9 Bipolar disorder, unspecified; F41.9 Anxiety disorder, unspecified; F17.200 Nicotine dependence, unspecified, uncomplicated; Z79.899 Other long term (current) drug therapy; Z79.84 Long term (current) use of oral hypoglycemic drugs; Z88.8 Allergy status to other drugs, medicaments and biological substances; Z91.041 Radiographic dye allergy status; Z88.0 Allergy status to penicillin; Z88.2 Allergy status to sulfonamides; Z91.018 Allergy to other foods
CPT/HCPCS: 36415; 80053; 82150; 83690; 85025; 85610; 85730; 81001; 87086; 74018; 99284; 96374; 96375; J2405; J1170

== ENCOUNTER 2019-11-30 16:01 | Emergency (ER) | payer OTHER ==
[2019-11-30 16:32] LABS: Appearance,Urine Turbid (Clear); Bacteria,Urine Occasional /hpf; Bilirubin,Urine Negative (Negative); Blood,Urine Large (Negative); Color,Urine Light Brown; Glucose,Urine (UA) 4+ (Negative); Hyaline Casts,Urine 12 /lpf (0-2); Ketones,Urine Trace (Negative); Leukocyte Esterase,Urine Large (Negative); Nitrite,Urine Negative (Negative); Protein,Urine 1+ (Negative); RBC,Urine >182 /hpf (0-5); Specific Gravity,Urine 1.017 (1.001-1.035); Squamous Epithelial Cell,Urine 46 /hpf (0-4); Urobilinogen,Urine <2.0 mg/dL (<2.0); WBC,Urine 47 /hpf (0-5)
[2019-11-30] MEDS ORDERED: HYDROmorphone 0.5 MG/0.5 ML SYRINGE IVP STA ×2 (16:34→17:28)
[2019-11-30] MEDS ORDERED: SODIUM CHLORIDE 0.9% 1,000 ML IV STA (16:34)
[2019-11-30 16:51] LABS: Basophils # (A) 0.1 k/uL (0-0.2); Basophils % (A) 1 %; Eosinophils # (A) 0.2 k/uL (0-0.7); Eosinophils % (A) 2 %; HCT 41.3 % (34.0-46.0); HGB 13.7 gm/dL (11.4-16.0); Lymphocytes % (A) 27 %; MCH 29.3 pg (25.0-35.0); MCHC 33.2 g/dL (31.0-37.0); MCV 88.3 fL (80.0-100.0); Mean Platelet Volume 7.8; Monocytes # (A) 0.4 k/uL (0-1.0); Monocytes % (A) 4 %; Neutrophils # (A) 7.2 k/uL (1.3-7.7); Neutrophils % (A) 66 %; Platelet Count 241 k/uL (150-450); RBC 4.67 m/uL (3.80-5.40); RDW 12.9 % (11.5-15.5)
[2019-11-30 17:02] LABS: ALT 30 U/L (4-34); AST 33 U/L (14-36); African American GFR (CKD) >90 (>60 ml/min/1.73 sqM); Albumin 4.1 g/dL (3.5-5.0); Alkaline Phosphatase 115 U/L (38-126); Amylase 44 U/L (30-110); Anion Gap 11 mmol/L; Blood Urea Nitrogen 10 mg/dL (7-17); Calcium 9.3 mg/dL (8.4-10.2); Carbon Dioxide 18 mmol/L (22-30); Chloride 108 mmol/L (98-107); Glucose 367 mg/dL (74-99); Non-African American GFR(CKD) >90 (>60 ml/min/1.73 sqM); Potassium 3.8 mmol/L (3.5-5.1); Sodium 137 mmol/L (137-145); Total Bilirubin 0.4 mg/dL (0.2-1.3); Total Protein 6.8 g/dL (6.3-8.2)
--- NOTE | 2019-11-30 17:02 | XR ---
EXAMINATION TYPE: XR KUB DATE OF EXAM: 11/30/2019 COMPARISON: 11/22/2019 INDICATION: Abdomen pain TECHNIQUE: Single view abdomen upright view FINDINGS: There is a normal bowel gas pattern. Air is within the transverse colon. Psoas margins are normal. No organomegaly is present. No suspicious calcifications. Cholecystectomy clips are present. IMPRESSION: 1. Unremarkable Abdomen
[2019-11-30] MEDS ORDERED: INSULIN ASPART (NovoLOG) 100 UNIT/ML VIAL SQ STA (17:16)
--- NOTE | 2019-11-30 17:21 | ED ---
General Adult HPI - General Chief complaint: Abdominal Pain Stated complaint: Abd Pain Time Seen by Provider: 11/30/19 16:15 Source: patient, RN notes reviewed Mode of arrival: ambulatory Limitations: no limitations - History of Present Illness Initial comments: 44-year-old female well known to this emergency department for pain management of kidney stones presents to the emergency room for left flank pain. Patient has had left flank pain for the past 3 days. Of minimal nausea. Denies abdominal pain. Patient states this feels exactly like previous kidney stones. Denies any fevers today.Patient has no other complaints at this time including shortness of breath, chest pain, abdominal pain, nausea or vomiting, headache, or visual changes. - Related Data Home Medications Medication Instructions Recorded Confirmed oxyCODONE-APAP 10-325MG [Percocet 1 tab PO QID PRN 08/29/17 08/30/19 10-325 mg] OXcarbazepine [Trileptal] 300 mg PO BID 02/05/18 08/30/19 Mirtazapine [Remeron] 15 mg PO HS 03/12/18 08/30/19 PARoxetine HCL [Paxil] 40 mg PO DAILY 03/12/18 08/30/19 Topiramate [Topamax] 100 mg PO BID 03/12/18 08/30/19 PARoxetine [Paxil] 20 mg PO DAILY 06/04/18 08/30/19 ARIPiprazole [Abilify] 10 mg PO DAILY 07/16/19 08/30/19 Atorvastatin [Lipitor] 40 mg PO DAILY 07/16/19 08/30/19 Benzoyl Peroxide [Benzac AC Wash] 1 applic TOPICAL BID 07/16/19 08/30/19 Clindamycin 1% Pledgets 1 applic TOPICAL BID 07/16/19 08/30/19 Loratadine [Claritin] 10 mg PO DAILY 07/16/19 08/30/19 metFORMIN HCL 1,000 mg PO BID 07/16/19 08/30/19 Previous Rx's Medication Instructions Recorded Lisinopril [Zestril] 10 mg PO HS tab 08/02/17 SUMAtriptan SUCCINATE [Imitrex] 100 mg PO DAILY PRN tab 08/02/17 Cefuroxime Axetil [Ceftin] 500 mg PO BID #14 tab 07/17/19 Ciprofloxacin HCl [Cipro] 500 mg PO Q12H 7 Days #14 tab 09/03/19 Ciprofloxacin HCl [Cipro] 500 mg PO Q12HR #14 tablet 09/17/19 Cephalexin [Keflex] 500 mg PO QID 10 Days #40 cap 09/28/19 Ondansetron Odt [Zofran Odt] 4 mg PO Q8HR PRN #10 tab 09/28/19 Cephalexin [Keflex] 500 mg PO Q12HR #20 cap 10/23/19 Cephalexin [Keflex] 500 mg PO Q6HR 14 Days #48 cap 10/26/19 Allergies Allergy/AdvReac Type Severity Reaction Status Date / Time bupropion HCl Allergy Rash/Hives Verified 11/30/19 16:05 [From Wellbutrin] divalproex sodium Allergy Unknown Verified 11/30/19 16:05 [From Depakote] fentanyl Allergy Swelling Verified 11/30/19 16:05 Iodinated Contrast Media Allergy Anaphylaxis Verified 11/30/19 16:05 [Iodinated Contrast Media - IV Dye] orange juice [[place]] Allergy Rash/Hives Verified 11/30/19 16:05 Sulfa (Sulfonamide Allergy Rash/Hives Verified 11/30/19 16:05 Antibiotics) Penicillins AdvReac Nausea & Verified 11/30/19 16:05 Vomiting Review of Systems ROS Statement: Those systems with pertinent positive or pertinent negative responses have been documented in the HPI. ROS Other: All systems not noted in ROS Statement are negative. 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 History of Any Multi-Drug Resistant Organisms: ESBL Date of last positivie culture/infection: 05/14/17 MDRO Source:: ESBL URINE, Past Surgical History: Bladder Surgery, Section, Cholecystectomy, Hysterectomy, Orthopedic Surgery, Tubal Ligation Additional Past Surgical History / Comment(s): R ovarian cystectomy, laparoscopic surgery for L ovary that had attached to the bowel, D&C, numerous lithotripsies, nephroscopies, cystoscopies and stents to ureters-none in place at this time, L robotic pyeloplasty with post op infection around kidney which then required a picc line/later removed (pt states was not MRSA), L rotator cuff repair, L wrist tendon surgery, colonoscopy Past Anesthesia/Blood Transfusion Reactions: Family History of Problems w/ Anesthesia Additional Past Anesthesia/Blood Transfusion Reaction / Comment(s): dad-hard time waking up due to enzyme problems in liver Past Psychological History: ADD/ADHD, Anxiety, Bipolar, Depression, PTSD Smoking Status: Current every day smoker Past Alcohol Use History: None Reported Past Drug Use History: None Reported - Past Family History Brother(s) Family Medical History: Cancer Additional Family Medical History / Comment(s): testicular Father Family Medical History: Coronary Artery Disease (CAD), CVA/TIA, Diabetes Mellitu s, Renal Disease Additional Family Medical History / Comment(s): GLAUCOMA,NEUROPATHY HAD TRIPLE CABG, at 56yrs from renal disease. Mother Family Medical History: Hyperlipidemia Additional Family Medical History / Comment(s): DDD, HAD 3 vessel CABG AGE 54. General Exam Limitations: no limitations General appearance: alert, in no apparent distress Head exam: Present: atraumatic, normocephalic, normal inspection Eye exam: Present: normal appearance, PERRL, EOMI. Absent: scleral icterus, co njunctival injection, periorbital swelling ENT exam: Present: normal exam, mucous membranes moist Neck exam: Present: normal inspection, full ROM. Absent: tenderness, meningismus, lymphadenopathy Respiratory exam: Present: normal lung sounds bilaterally. Absent: respiratory distress, wheezes, rales, rhonchi, stridor Cardiovascular Exam: Present: regular rate, normal rhythm, normal heart sounds. Absent: systolic murmur, diastolic murmur, rubs, gallop, clicks GI/Abdominal exam: Present: soft, normal bowel sounds. Absent: distended, tenderness, guarding, rebound, rigid Back exam: Present: CVA tenderness (L). Absent: CVA tenderness (R) Neurological exam: Present: alert Course Vital Signs 11/30/19 11/30/19 16:02 17:59 Temperature 98.1 F 98.3 F Pulse Rate 106 H 84 Respiratory 18 16 Rate Blood Pressure 123/75 120/77 O2 Sat by Pulse 98 97 Oximetry Medical Decision Making - Medical Decision Making Vitals are stable. CBC unremarkable. Patient does have hyperglycemia of 367 given a liter of fluids in 5 units subcu insulin. Anion gap is normal. X-ray KUB is unremarkable. She does have 182 red blood cells with 47 white cells. White cells likely reactive to red cells however culture pending. Patient does not have a fever at this time. We will hold antibiotics until culture comes back. Patient's pain was controlled with Dilaudid. Will be discharged home to follow up with primary care. - Lab Data Result diagrams: 11/30/19 16:47 11/30/19 16:47 Lab Results 11/30/19 11/30/19 11/30/19 Range/Units 16:00 16:47 16:47 WBC 11.0 H (3.8-10.6) k/uL RBC 4.67 (3.80-5.40) m/uL Hgb 13.7 (11.4-16.0) gm/dL Hct 41.3 (34.0-46.0) % MCV 88.3 (80.0-100.0) fL MCH 29.3 (25.0-35.0) pg MCHC 33.2 (31.0-37.0) g/dL RDW 12.9 (11.5-15.5) % Plt Count 241 (150-450) k/uL Neutrophils % 66 % Lymphocytes % 27 % Monocytes % 4 % Eosinophils % 2 % Basophils % 1 % Neutrophils # 7.2 (1.3-7.7) k/uL Lymphocytes # 3.0 (1.0-4.8) k/uL Monocytes # 0.4 (0-1.0) k/uL Eosinophils # 0.2 (0-0.7) k/uL Basophils # 0.1 (0-0.2) k/uL Sodium 137 (137-145) mmol/L Potassium 3.8 (3.5-5.1) mmol/L Chloride 108 H (98-107) mmol/L Carbon Dioxide 18 L (22-30) mmol/L Anion Gap 11 mmol/L BUN 10 (7-17) mg/dL Creatinine 0.66 (0.52-1.04) mg/dL Est GFR (CKD-EPI)AfAm >90 (>60 ml/min/1.73 sqM) Est GFR (CKD-EPI)NonAf >90 (>60 ml/min/1.73 sqM) Glucose 367 H (74-99) mg/dL Calcium 9.3 (8.4-10.2) mg/dL Total Bilirubin 0.4 (0.2-1.3) mg/dL AST 33 (14-36) U/L ALT 30 (4-34) U/L Alkaline Phosphatase 115 (38-126) U/L Total Protein 6.8 (6.3-8.2) g/dL Albumin 4.1 (3.5-5.0) g/dL Amylase 44 (30-110) U/L Lipase 236 (23-300) U/L Urine Color Light Brown Urine Appearance Turbid H (Clear) Urine pH 7.0 (5.0-8.0) Ur Specific [place] 1.017 (1.001-1.035) Urine Protein 1+ H (Negative) Urine Glucose (UA) 4+ H (Negative) Urine Ketones Trace H (Negative) Urine Blood Large H (Negative) Urine Nitrite Negative (Negative) Urine Bilirubin Negative (Negative) Urine Urobilinogen <2.0 (<2.0) mg/dL Ur Leukocyte Esterase Large H (Negative) Urine RBC >182 H (0-5) /hpf Urine WBC 47 H (0-5) /hpf Ur Squamous Epith Cells 46 H (0-4) /hpf Urine Bacteria Occasional H (None) /hpf Hyaline Casts 12 H (0-2) /lpf Disposition Clinical Impression: Flank pain Disposition: HOME SELF-CARE Condition: Good Instructions (If sedation given, give patient instructions): Flank Pain (ED) Additional Instructions: Please follow up with primary care in 1-2 days. Please return to the emergency room for any worsening symptoms. Is patient prescribed a controlled substance at d/c from ED?: No Referrals: Melchor Stevens MD [Primary Care Provider] - 1-2 days Time of Disposition: 17:18
[2019-11-30 18:01] VITALS: BP 120/77; PULSE 84; RESP 16; TEMP 98.3
== END 2019-11-30 18:00 | disposition home or self-care (01) ==
LOC: EC 16:01
DX: R10.9 Unspecified abdominal pain (principal); R11.0 Nausea; E11.65 Type 2 diabetes mellitus with hyperglycemia; I10 Essential (primary) hypertension; E78.5 Hyperlipidemia, unspecified; F31.9 Bipolar disorder, unspecified; F41.9 Anxiety disorder, unspecified; F17.200 Nicotine dependence, unspecified, uncomplicated; Z79.84 Long term (current) use of oral hypoglycemic drugs; Z79.899 Other long term (current) drug therapy; Z88.8 Allergy status to other drugs, medicaments and biological substances; Z91.041 Radiographic dye allergy status; Z91.018 Allergy to other foods; Z88.0 Allergy status to penicillin; Z88.2 Allergy status to sulfonamides; Z90.49 Acquired absence of other specified parts of digestive tract; Z90.710 Acquired absence of both cervix and uterus
CPT/HCPCS: 36415; 80053; 82150; 83690; 85025; 81001; 87086; 74018; 99284; 96374; 96376; 96361; J1170

== ENCOUNTER 2019-12-03 02:10 | Emergency (ER) | payer OTHER ==
[2019-12-03] MEDS ORDERED: HYDROmorphone 1 MG/ML 1 ML SYRINGE IVP STA (03:08)
[2019-12-03 03:11] LABS: Basophils # (A) 0.1 k/uL (0-0.2); Basophils % (A) 1 %; Eosinophils # (A) 0.3 k/uL (0-0.7); Eosinophils % (A) 3 %; HCT 38.6 % (34.0-46.0); Lymphocytes % (A) 37 %; MCH 30.5 pg (25.0-35.0); MCHC 33.8 g/dL (31.0-37.0); MCV 90.4 fL (80.0-100.0); Mean Platelet Volume 7.6; Monocytes # (A) 0.5 k/uL (0-1.0); Monocytes % (A) 5 %; Neutrophils # (A) 5.8 k/uL (1.3-7.7); Neutrophils % (A) 53 %; Platelet Count 240 k/uL (150-450); RBC 4.27 m/uL (3.80-5.40); RDW 12.9 % (11.5-15.5); WBC 10.8 k/uL (3.8-10.6)
--- NOTE | 2019-12-03 03:11 | ED ---
Abdominal Pain HPI - General Chief Complaint: Abdominal Pain Stated Complaint: Blood in urine Time Seen by Provider: 12/03/19 02:25 Source: patient Mode of arrival: ambulatory Limitations: no limitations - History of Present Illness MD Complaint: flank pain Onset/Timin -: days(s) Location: L flank Radiation: none Migration to: no migration Severity: severe Severity scale (1-10): 9 Quality: aching Consistency: constant Improves With: nothing Worsens With: nothing Associated Symptoms: denies other symptoms Treatments Prior to Arrival: prescription analgesics - Related Data Home Medications Medication Instructions Recorded Confirmed oxyCODONE-APAP 10-325MG [Percocet 1 tab PO QID PRN 08/29/17 08/30/19 10-325 mg] OXcarbazepine [Trileptal] 300 mg PO BID 02/05/18 08/30/19 Mirtazapine [Remeron] 15 mg PO HS 03/12/18 08/30/19 PARoxetine HCL [Paxil] 40 mg PO DAILY 03/12/18 08/30/19 Topiramate [Topamax] 100 mg PO BID 03/12/18 08/30/19 PARoxetine [Paxil] 20 mg PO DAILY 06/04/18 08/30/19 ARIPiprazole [Abilify] 10 mg PO DAILY 07/16/19 08/30/19 Atorvastatin [Lipitor] 40 mg PO DAILY 07/16/19 08/30/19 Benzoyl Peroxide [Benzac AC Wash] 1 applic TOPICAL BID 07/16/19 08/30/19 Clindamycin 1% Pledgets 1 applic TOPICAL BID 07/16/19 08/30/19 Loratadine [Claritin] 10 mg PO DAILY 07/16/19 08/30/19 metFORMIN HCL 1,000 mg PO BID 07/16/19 08/30/19 Previous Rx's Medication Instructions Recorded Lisinopril [Zestril] 10 mg PO HS tab 08/02/17 SUMAtriptan SUCCINATE [Imitrex] 100 mg PO DAILY PRN tab 08/02/17 Cefuroxime Axetil [Ceftin] 500 mg PO BID #14 tab 07/17/19 Ciprofloxacin HCl [Cipro] 500 mg PO Q12H 7 Days #14 tab 09/03/19 Ciprofloxacin HCl [Cipro] 500 mg PO Q12HR #14 tablet 09/17/19 Cephalexin [Keflex] 500 mg PO QID 10 Days #40 cap 09/28/19 Ondansetron Odt [Zofran Odt] 4 mg PO Q8HR PRN #10 tab 09/28/19 Cephalexin [Keflex] 500 mg PO Q12HR #20 cap 10/23/19 Cephalexin [Keflex] 500 mg PO Q6HR 14 Days #48 cap 10/26/19 Allergies Allergy/AdvReac Type Severity Reaction Status Date / Time bupropion HCl Allergy Rash/Hives Verified 12/03/19 02:19 [From Wellbutrin] divalproex sodium Allergy Unknown Verified 12/03/19 02:19 [From Depakote] fentanyl Allergy Swelling Verified 12/03/19 02:19 Iodinated Contrast Media Allergy Anaphylaxis Verified 12/03/19 02:19 [Iodinated Contrast Media - IV Dye] orange juice [[place]] Allergy Rash/Hives Verified 12/03/19 02:19 Sulfa (Sulfonamide Allergy Rash/Hives Verified 12/03/19 02:19 Antibiotics) Penicillins AdvReac Nausea & Verified 12/03/19 02:19 Vomiting Review of Systems ROS Statement: Those systems with pertinent positive or pertinent negative responses have been documented in the HPI. ROS Other: All systems not noted in ROS Statement are negative. Constitutional: Denies: fever, chills Respiratory: Denies: cough, dyspnea Cardiovascular: Denies: chest pain, palpitations, edema Gastrointestinal: Reports: abdominal pain. Denies: nausea, vomiting, diarrhea, constipation Genitourinary: Reports: hematuria. 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 History of Any Multi-Drug Resistant Organisms: ESBL Date of last positivie culture/infection: 05/14/17 MDRO Source:: ESBL URINE, Past Surgical History: Bladder Surgery, Section, Cholecystectomy, Hysterectomy, Orthopedic Surgery, Tubal Ligation Additional Past Surgical History / Comment(s): R ovarian cystectomy, laparoscopic surgery for L ovary that had attached to the bowel, D&C, numerous lithotripsies, nephroscopies, cystoscopies and stents to ureters-none in place at this time, L robotic pyeloplasty with post op infection around kidney which then required a picc line/later removed (pt states was not MRSA), L rotator cuff repair, L wrist tendon surgery, colonoscopy Past Anesthesia/Blood Transfusion Reactions: Family History of Problems w/ Anesthesia Additional Past Anesthesia/Blood Transfusion Reaction / Comment(s): dad-hard time waking up due to enzyme problems in liver Past Psychological History: ADD/ADHD, Anxiety, Bipolar, Depression, PTSD Smoking Status: Current every day smoker Past Alcohol Use History: None Reported Past Drug Use History: None Reported - Past Family History Brother(s) Family Medical History: Cancer Additional Family Medical History / Comment(s): testicular Father Family Medical History: Coronary Artery Disease (CAD), CVA/TIA, Diabetes Mellitus, Renal Disease Additional Family Medical History / Comment(s): GLAUCOMA,NEUROPATHY HAD TRIPLE CABG, at 56yrs from renal disease. Mother Family Medical History: Hyperlipidemia Additional Family Medical History / Comment(s): DDD, HAD 3 vessel CABG AGE 54. General Exam Limitations: no limitations General appearance: alert, in no apparent distress Head exam: Present: atraumatic, normocephalic Eye exam: Present: normal appearance. Absent: scleral icterus, conjunctival injection ENT exam: Present: normal oropharynx Respiratory exam: Present: normal lung sounds bilaterally. Absent: respiratory distress, wheezes, rales, rhonchi, stridor Cardiovascular Exam: Present: regular rate, normal rhythm, normal heart sounds. Absent: systolic murmur, diastolic murmur, rubs, gallop GI/Abdominal exam: Present: soft. Absent: distended, tenderness, guarding, rebound, rigid, mass Extremities exam: Present: normal inspection, normal capillary refill. Absent: pedal edema, calf tenderness Back exam: Present: normal inspection, CVA tenderness (L). Absent: CVA tenderness (R), vertebral tenderness Neurological exam: Present: alert Skin exam: Present: warm, dry, intact, normal color. Absent: rash Course Vital Signs 12/03/19 12/03/19 02:19 03:20 Temperature 98.3 F Pulse Rate 102 H 89 Respiratory 18 16 Rate Blood Pressure 127/86 125/81 O2 Sat by Pulse 95 95 Oximetry Medical Decision Making - Lab Data Result diagrams: 12/03/19 02:54 12/03/19 02:54 Lab Results 12/03/19 12/03/19 12/03/19 Range/Units 02:54 02:54 02:54 WBC 10.8 H (3.8-10.6) k/uL RBC 4.27 (3.80-5.40) m/uL Hgb 13.0 (11.4-16.0) gm/dL Hct 38.6 (34.0-46.0) % MCV 90.4 (80.0-100.0) fL MCH 30.5 (25.0-35.0) pg MCHC 33.8 (31.0-37.0) g/dL RDW 12.9 (11.5-15.5) % Plt Count 240 (150-450) k/uL Neutrophils % 53 % Lymphocytes % 37 % Monocytes % 5 % Eosinophils % 3 % Basophils % 1 % Neutrophils # 5.8 (1.3-7.7) k/uL Lymphocytes # 4.0 (1.0-4.8) k/uL Monocytes # 0.5 (0-1.0) k/uL Eosinophils # 0.3 (0-0.7) k/uL Basophils # 0.1 (0-0.2) k/uL Sodium 137 (137-145) mmol/L Potassium 3.6 (3.5-5.1) mmol/L Chloride 108 H (98-107) mmol/L Carbon Dioxide 19 L (22-30) mmol/L Anion Gap 10 mmol/L BUN 7 (7-17) mg/dL Creatinine 0.63 (0.52-1.04) mg/dL Est GFR (CKD-EPI)AfAm >90 (>60 ml/min/1.73 sqM) Est GFR (CKD-EPI)NonAf >90 (>60 ml/min/1.73 sqM) Glucose 360 H (74-99) mg/dL Calcium 8.8 (8.4-10.2) mg/dL Urine Color Red Urine Appearance Cloudy H (Clear) Urine pH 6.0 (5.0-8.0) Ur Specific [place] 1.022 (1.001-1.035) Urine Protein 1+ H (Negative) Urine Glucose (UA) 4+ H (Negative) Urine Ketones 1+ H (Negative) Urine Blood Large H (Negative) Urine Nitrite Negative (Negative) Urine Bilirubin Negative (Negative) Urine Urobilinogen 2.0 (<2.0) mg/dL Ur Leukocyte Esterase Moderate H (Negative) Urine RBC >182 H (0-5) /hpf Urine WBC 82 H (0-5) /hpf Urine WBC Clumps Few H (None) /hpf Ur Squamous Epith Cells 6 H (0-4) /hpf Urine Mucus Rare H (None) /hpf Disposition Clinical Impression: Left flank pain, chronic, UTI (urinary tract infection) Disposition: HOME SELF-CARE Condition: Fair Instructions (If sedation given, give patient instructions): Flank Pain (ED) Is patient prescribed a controlled substance at d/c from ED?: No Referrals: Melchor Stevens MD [Primary Care Provider] - 1-2 days Malachi Ortega MD [STAFF PHYSICIAN] - 1-2 days
[2019-12-03 03:13] LABS: Appearance,Urine Cloudy (Clear); Bilirubin,Urine Negative (Negative); Blood,Urine Large (Negative); Color,Urine Red; Glucose,Urine (UA) 4+ (Negative); Ketones,Urine 1+ (Negative); Leukocyte Esterase,Urine Moderate (Negative); Mucus,Urine Rare /hpf; Nitrite,Urine Negative (Negative); Protein,Urine 1+ (Negative); RBC,Urine >182 /hpf (0-5); Specific Gravity,Urine 1.022 (1.001-1.035); Squamous Epithelial Cell,Urine 6 /hpf (0-4); WBC,Urine 82 /hpf (0-5)
[2019-12-03 03:16] LABS: African American GFR (CKD) >90 (>60 ml/min/1.73 sqM); Anion Gap 10 mmol/L; Blood Urea Nitrogen 7 mg/dL (7-17); Calcium 8.8 mg/dL (8.4-10.2); Carbon Dioxide 19 mmol/L (22-30); Chloride 108 mmol/L (98-107); Glucose 360 mg/dL (74-99); Non-African American GFR(CKD) >90 (>60 ml/min/1.73 sqM); Potassium 3.6 mmol/L (3.5-5.1); Sodium 137 mmol/L (137-145)
[2019-12-03 03:31] VITALS: RESP 16
[2019-12-03] MEDS ORDERED: HYDROmorphone 0.5 MG/0.5 ML SYRINGE IVP STA (04:37)
[2019-12-03 04:50] VITALS: BP 110/80; PULSE 88; TEMP 97.9
== END 2019-12-03 05:00 | disposition home or self-care (01) ==
LOC: EC 02:10
DX: N39.0 Urinary tract infection, site not specified (principal); E11.9 Type 2 diabetes mellitus without complications; F41.9 Anxiety disorder, unspecified; G43.909 Migraine, unspecified, not intractable, without status migrainosus; F90.9 Attention-deficit hyperactivity disorder, unspecified type; F43.10 Post-traumatic stress disorder, unspecified; E78.5 Hyperlipidemia, unspecified; I10 Essential (primary) hypertension; E28.2 Polycystic ovarian syndrome; F17.200 Nicotine dependence, unspecified, uncomplicated; Z79.84 Long term (current) use of oral hypoglycemic drugs; Z79.899 Other long term (current) drug therapy; Z88.8 Allergy status to other drugs, medicaments and biological substances; Z88.5 Allergy status to narcotic agent; Z91.041 Radiographic dye allergy status; Z88.2 Allergy status to sulfonamides; Z88.0 Allergy status to penicillin; Z91.018 Allergy to other foods; Z87.442 Personal history of urinary calculi; Z87.19 Personal history of other diseases of the digestive system; Z90.49 Acquired absence of other specified parts of digestive tract; Z98.890 Other specified postprocedural states
CPT/HCPCS: 36415; 80048; 85025; 81001; 96374; 96376; 99284; J1170 ×2

== ENCOUNTER 2019-12-08 03:45 | Emergency (ER) | payer OTHER ==
[2019-12-08 03:51] VITALS: TEMP 97
[2019-12-08 04:26] LABS: Basophils # (A) 0.1 k/uL (0-0.2); Basophils % (A) 1 %; Eosinophils # (A) 0.4 k/uL (0-0.7); Eosinophils % (A) 3 %; HCT 38.9 % (34.0-46.0); HGB 13.6 gm/dL (11.4-16.0); Lymphocytes # (A) 4.2 k/uL (1.0-4.8); Lymphocytes % (A) 36 %; MCH 30.7 pg (25.0-35.0); MCHC 34.9 g/dL (31.0-37.0); MCV 88.1 fL (80.0-100.0); Mean Platelet Volume 8.1; Monocytes # (A) 0.6 k/uL (0-1.0); Monocytes % (A) 5 %; Neutrophils # (A) 6.5 k/uL (1.3-7.7); Neutrophils % (A) 55 %; Platelet Count 263 k/uL (150-450); RBC 4.42 m/uL (3.80-5.40); RDW 12.9 % (11.5-15.5); WBC 11.8 k/uL (3.8-10.6)
[2019-12-08 04:37] LABS: African American GFR (CKD) >90 (>60 ml/min/1.73 sqM); Anion Gap 7 mmol/L; Appearance,Urine Cloudy (Clear); Bilirubin,Urine Negative (Negative); Blood Urea Nitrogen 6 mg/dL (7-17); Blood,Urine Large (Negative); Calcium 8.9 mg/dL (8.4-10.2); Carbon Dioxide 19 mmol/L (22-30); Chloride 111 mmol/L (98-107); Color,Urine Light Red; Glucose 278 mg/dL (74-99); Glucose,Urine (UA) 3+ (Negative); Ketones,Urine Trace (Negative); Leukocyte Esterase,Urine Large (Negative); Mucus,Urine Rare /hpf; Nitrite,Urine Negative (Negative); Non-African American GFR(CKD) >90 (>60 ml/min/1.73 sqM); PH, Urine 5.5 (5.0-8.0); Potassium 3.8 mmol/L (3.5-5.1); Protein,Urine 1+ (Negative); RBC,Urine >182 /hpf (0-5); Sodium 137 mmol/L (137-145); Specific Gravity,Urine 1.014 (1.001-1.035); Squamous Epithelial Cell,Urine 22 /hpf (0-4); Urobilinogen,Urine <2.0 mg/dL (<2.0); WBC,Urine 103 /hpf (0-5)
[2019-12-08] MEDS ORDERED: ONDANSETRON 4 MG/2 ML VIAL IVP STA (04:50)
[2019-12-08] MEDS ORDERED: MORPHINE SULFATE 4 MG/ML SYRINGE IV STA ×2 (04:50→05:33)
[2019-12-08] MEDS ORDERED: LEVOFLOXACIN 750 MG TAB PO STA (04:52)
--- NOTE | 2019-12-08 05:24 | ED ---
Female Urogenital HPI - General Chief complaint: Urogenital Stated complaint: Poss kidney stone Time Seen by Provider: 12/08/19 03:47 Source: patient Mode of arrival: ambulatory Limitations: no limitations - History of Present Illness Initial comments: This patient is a 44-year-old woman who presents to be evaluated for left flank pain. Patient states she has history of kidney stones and states that the pain is similar. She also has noted some dysuria and frequency. She states that she does have ciprofloxacin at home and began taking that when she noted the hematuria. Patient denies fever or chills. No systemic symptoms. Onset/Timin -: days(s) Radiation: L flank Severity: severe Quality: sharp Consistency: intermittent Improves with: none Worsens with: none - Related Data Home Medications Medication Instructions Recorded Confirmed oxyCODONE-APAP 10-325MG [Percocet 1 tab PO QID PRN 08/29/17 08/30/19 10-325 mg] OXcarbazepine [Trileptal] 300 mg PO BID 02/05/18 08/30/19 Mirtazapine [Remeron] 15 mg PO HS 03/12/18 08/30/19 PARoxetine HCL [Paxil] 40 mg PO DAILY 03/12/18 08/30/19 Topiramate [Topamax] 100 mg PO BID 03/12/18 08/30/19 PARoxetine [Paxil] 20 mg PO DAILY 06/04/18 08/30/19 ARIPiprazole [Abilify] 10 mg PO DAILY 07/16/19 08/30/19 Atorvastatin [Lipitor] 40 mg PO DAILY 07/16/19 08/30/19 Benzoyl Peroxide [Benzac AC Wash] 1 applic TOPICAL BID 07/16/19 08/30/19 Clindamycin 1% Pledgets 1 applic TOPICAL BID 07/16/19 08/30/19 Loratadine [Claritin] 10 mg PO DAILY 07/16/19 08/30/19 metFORMIN HCL 1,000 mg PO BID 07/16/19 08/30/19 Previous Rx's Medication Instructions Recorded Lisinopril [Zestril] 10 mg PO HS tab 08/02/17 SUMAtriptan SUCCINATE [Imitrex] 100 mg PO DAILY PRN tab 08/02/17 Cefuroxime Axetil [Ceftin] 500 mg PO BID #14 tab 07/17/19 Ciprofloxacin HCl [Cipro] 500 mg PO Q12H 7 Days #14 tab 09/03/19 Ciprofloxacin HCl [Cipro] 500 mg PO Q12HR #14 tablet 09/17/19 Cephalexin [Keflex] 500 mg PO QID 10 Days #40 cap 09/28/19 Ondansetron Odt [Zofran Odt] 4 mg PO Q8HR PRN #10 tab 09/28/19 Cephalexin [Keflex] 500 mg PO Q12HR #20 cap 10/23/19 Cephalexin [Keflex] 500 mg PO Q6HR 14 Days #48 cap 10/26/19 Allergies Allergy/AdvReac Type Severity Reaction Status Date / Time bupropion HCl Allergy Rash/Hives Verified 12/16/19 00:44 [From Wellbutrin] divalproex sodium Allergy Unknown Verified 12/16/19 00:44 [From Depakote] fentanyl Allergy Swelling Verified 12/16/19 00:44 Iodinated Contrast Media Allergy Anaphylaxis Verified 12/16/19 00:44 [Iodinated Contrast Media - IV Dye] orange juice [[place]] Allergy Rash/Hives Verified 12/16/19 00:44 Sulfa (Sulfonamide Allergy Rash/Hives Verified 12/16/19 00:44 Antibiotics) Penicillins AdvReac Nausea & Verified 12/16/19 00:44 Vomiting Review of Systems ROS Statement: Those systems with pertinent positive or pertinent negative responses have been documented in the HPI. ROS Other: All systems not noted in ROS Statement are negative. Respiratory: Denies: cough, dyspnea Cardiovascular: Denies: chest pain, palpitations, edema Gastrointestinal: Reports: as per HPI, abdominal pain. Denies: nausea, vomiting, diarrhea, constipation Genitourinary: Reports: frequency, hematuria. 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 History of Any Multi-Drug Resistant Organisms: ESBL Date of last positivie culture/infection: 05/14/17 MDRO Source:: ESBL URINE, Past Surgical History: Bladder Surgery, Section, Cholecystectomy, Hysterectomy, Orthopedic Surgery, Tubal Ligation Additional Past Surgical History / Comment(s): R ovarian cystectomy, laparoscopic surgery for L ovary that had attached to the bowel, D&C, numerous lithotripsies, nephroscopies, cystoscopies and stents to ureters-none in place at this time, L robotic pyeloplasty with post op infection around kidney which then required a picc line/later removed (pt states was not MRSA), L rotator cuff repair, L wrist tendon surgery, colonoscopy Past Anesthesia/Blood Transfusion Reactions: Family History of Problems w/ Anesthesia Additional Past Anesthesia/Blood Transfusion Reaction / Comment(s): dad-hard time waking up due to enzyme problems in liver Past Psychological History: ADD/ADHD, Anxiety, Bipolar, Depression, PTSD Smoking Status: Current every day smoker Past Alcohol Use History: None Reported Past Drug Use History: None Reported - Past Family History Brother(s) Family Medical History: Cancer Additional Family Medical History / Comment(s): testicular Father Family Medical History: Coronary Artery Disease (CAD), CVA/TIA, Diabetes Mellitus, Renal Disease Additional Family Medical History / Comment(s): GLAUCOMA,NEUROPATHY HAD TRIPLE CABG, at 56yrs from renal disease. Mother Family Medical History: Hyperlipidemia Additional Family Medical History / Comment(s): DDD, HAD 3 vessel CABG AGE 54. General Exam Limitations: no limitations General appearance: alert, in no apparent distress Head exam: Present: atraumatic, normocephalic Eye exam: Present: normal appearance. Absent: scleral icterus, conjunctival injection Respiratory exam: Present: normal lung sounds bilaterally. Absent: respiratory distress, wheezes, rales, rhonchi, stridor Cardiovascular Exam: Present: regular rate, normal rhythm, normal heart sounds. Absent: systolic murmur, diastolic murmur, rubs, gallop GI/Abdominal exam: Present: soft. Absent: distended, tenderness, guarding, rebound, mass Extremities exam: Present: normal inspection, normal capillary refill. Absent: pedal edema, calf tenderness Back exam: Present: normal inspection, CVA tenderness (L). Absent: CVA tenderness (R) Neurological exam: Present: alert Skin exam: Present: warm, dry, intact, normal color. Absent: rash Course Vital Signs 12/08/19 12/08/19 03:47 05:45 Temperature 97 F L Pulse Rate 82 70 Respiratory 18 17 Rate Blood Pressure 132/84 120/81 O2 Sat by Pulse 100 99 Oximetry Medical Decision Making - Lab Data Result diagrams: 12/08/19 04:17 12/08/19 04:17 Lab Results 12/08/19 12/08/19 12/08/19 Range/Units 04:17 04:17 04:17 WBC 11.8 H (3.8-10.6) k/uL RBC 4.42 (3.80-5.40) m/uL Hgb 13.6 (11.4-16.0) gm/dL Hct 38.9 (34.0-46.0) % MCV 88.1 (80.0-100.0) fL MCH 30.7 (25.0-35.0) pg MCHC 34.9 (31.0-37.0) g/dL RDW 12.9 (11.5-15.5) % Plt Count 263 (150-450) k/uL Neutrophils % 55 % Lymphocytes % 36 % Monocytes % 5 % Eosinophils % 3 % Basophils % 1 % Neutrophils # 6.5 (1.3-7.7) k/uL Lymphocytes # 4.2 (1.0-4.8) k/uL Monocytes # 0.6 (0-1.0) k/uL Eosinophils # 0.4 (0-0.7) k/uL Basophils # 0.1 (0-0.2) k/uL Sodium (137-145) mmol/L Potassium (3.5-5.1) mmol/L Chloride (98-107) mmol/L Carbon Dioxide (22-30) mmol/L Anion Gap mmol/L BUN (7-17) mg/dL Creatinine (0.52-1.04) mg/dL Est GFR (CKD-EPI)AfAm (>60 ml/min/1.73 sqM) Est GFR (CKD-EPI)NonAf (>60 ml/min/1.73 sqM) Glucose (74-99) mg/dL Calcium (8.4-10.2) mg/dL Urine Color Light Red Urine Appearance Cloudy H (Clear) Urine pH 5.5 (5.0-8.0) Ur Specific [place] 1.014 (1.001-1.035) Urine Protein 1+ H (Negative) Urine Glucose (UA) 3+ H (Negative) Urine Ketones Trace H (Negative) Urine Blood Large H (Negative) Urine Nitrite Negative (Negative) Urine Bilirubin Negative (Negative) Urine Urobilinogen <2.0 (<2.0) mg/dL Ur Leukocyte Esterase Large H (Negative) Urine RBC >182 H (0-5) /hpf Urine WBC 103 H (0-5) /hpf Ur Squamous Epith Cells 22 H (0-4) /hpf Urine Mucus Rare H (None) /hpf Urine HCG, Qual Not Detected (Not Detectd) 12/08/19 Range/Units 04:17 WBC (3.8-10.6) k/uL RBC (3.80-5.40) m/uL Hgb (11.4-16.0) gm/dL Hct (34.0-46.0) % MCV (80.0-100.0) fL MCH (25.0-35.0) pg MCHC (31.0-37.0) g/dL RDW (11.5-15.5) % Plt Count (150-450) k/uL Neutrophils % % Lymphocytes % % Monocytes % % Eosinophils % % Basophils % % Neutrophils # (1.3-7.7) k/uL Lymphocytes # (1.0-4.8) k/uL Monocytes # (0-1.0) k/uL Eosinophils # (0-0.7) k/uL Basophils # (0-0.2) k/uL Sodium 137 (137-145) mmol/L Potassium 3.8 (3.5-5.1) mmol/L Chloride 111 H (98-107) mmol/L Carbon Dioxide 19 L (22-30) mmol/L Anion Gap 7 mmol/L BUN 6 L (7-17) mg/dL Creatinine 0.56 (0.52-1.04) mg/dL Est GFR (CKD-EPI)AfAm >90 (>60 ml/min/1.73 sqM) Est GFR (CKD-EPI)NonAf >90 (>60 ml/min/1.73 sqM) Glucose 278 H (74-99) mg/dL Calcium 8.9 (8.4-10.2) mg/dL Urine Color Urine Appearance (Clear) Urine pH (5.0-8.0) Ur Specific [place] (1.001-1.035) Urine Protein (Negative) Urine Glucose (UA) (Negative) Urine Ketones (Negative) Urine Blood (Negative) Urine Nitrite (Negative) Urine Bilirubin (Negative) Urine Urobilinogen (<2.0) mg/dL Ur Leukocyte Esterase (Negative) Urine RBC (0-5) /hpf Urine WBC (0-5) /hpf Ur Squamous Epith Cells (0-4) /hpf Urine Mucus (None) /hpf Urine HCG, Qual (Not Detectd) Disposition Clinical Impression: Left flank pain, chronic Disposition: HOME SELF-CARE Condition: Good Instructions (If sedation given, give patient instructions): Flank Pain (ED) Is patient prescribed a controlled substance at d/c from ED?: No Referrals: Melchor Stevens MD [Primary Care Provider] - 1-2 days
[2019-12-08 05:46] VITALS: BP 120/81; PULSE 70; RESP 17
== END 2019-12-08 05:48 | disposition home or self-care (01) ==
LOC: EC 03:45
DX: R10.9 Unspecified abdominal pain (principal); G89.29 Other chronic pain; E11.9 Type 2 diabetes mellitus without complications; E78.5 Hyperlipidemia, unspecified; I10 Essential (primary) hypertension; G43.909 Migraine, unspecified, not intractable, without status migrainosus; F31.9 Bipolar disorder, unspecified; F41.9 Anxiety disorder, unspecified; F43.10 Post-traumatic stress disorder, unspecified; F90.9 Attention-deficit hyperactivity disorder, unspecified type; F17.200 Nicotine dependence, unspecified, uncomplicated; Z79.899 Other long term (current) drug therapy; Z79.84 Long term (current) use of oral hypoglycemic drugs; Z88.0 Allergy status to penicillin; Z88.2 Allergy status to sulfonamides; Z88.8 Allergy status to other drugs, medicaments and biological substances; Z91.041 Radiographic dye allergy status; Z91.018 Allergy to other foods; Z90.49 Acquired absence of other specified parts of digestive tract; Z90.710 Acquired absence of both cervix and uterus; Z98.51 Tubal ligation status
CPT/HCPCS: 36415; 80048; 85025; 81001; 81025; 99284; 96374; 96375; 96376; J2270; J2405

== ENCOUNTER 2019-12-16 00:36 | Emergency (ER) | payer OTHER ==
[2019-12-16 00:44] VITALS: RESP 18; TEMP 98
[2019-12-16 01:23] LABS: Basophils # (A) 0.1 k/uL (0-0.2); Basophils % (A) 1 %; Eosinophils # (A) 0.3 k/uL (0-0.7); Eosinophils % (A) 3 %; HGB 13.7 gm/dL (11.4-16.0); Lymphocytes # (A) 4.3 k/uL (1.0-4.8); Lymphocytes % (A) 38 %; MCH 28.7 pg (25.0-35.0); MCHC 32.5 g/dL (31.0-37.0); MCV 88.2 fL (80.0-100.0); Mean Platelet Volume 8.1; Monocytes # (A) 0.5 k/uL (0-1.0); Monocytes % (A) 5 %; Neutrophils # (A) 5.9 k/uL (1.3-7.7); Neutrophils % (A) 52 %; Platelet Count 246 k/uL (150-450); RBC 4.76 m/uL (3.80-5.40); RDW 12.7 % (11.5-15.5); WBC 11.4 k/uL (3.8-10.6)
[2019-12-16 01:33] LABS: African American GFR (CKD) >90 (>60 ml/min/1.73 sqM); Anion Gap 11 mmol/L; Blood Urea Nitrogen 7 mg/dL (7-17); Calcium 9.1 mg/dL (8.4-10.2); Carbon Dioxide 19 mmol/L (22-30); Chloride 104 mmol/L (98-107); Glucose 324 mg/dL (74-99); Non-African American GFR(CKD) >90 (>60 ml/min/1.73 sqM); Potassium 3.7 mmol/L (3.5-5.1); Sodium 134 mmol/L (137-145)
[2019-12-16] MEDS ORDERED: MORPHINE SULFATE 4 MG/ML SYRINGE IV STA ×2 (01:46→03:26)
[2019-12-16] MEDS ORDERED: ONDANSETRON 4 MG/2 ML VIAL IVP STA (01:46)
[2019-12-16 02:05] LABS: Calcium Oxalate Crystals,Urine Many /hpf; RBC,Urine >182 /hpf (0-5); Squamous Epithelial Cell,Urine 9 /hpf (0-4); WBC,Urine 44 /hpf (0-5)
[2019-12-16 02:06] LABS: Color,Urine Yellow
[2019-12-16 02:07] LABS: Appearance,Urine Cloudy (Clear); Bilirubin,Urine Negative (Negative); Blood,Urine Large (Negative); Glucose,Urine (UA) 3+ (Negative); Ketones,Urine Negative (Negative); Leukocyte Esterase,Urine Moderate (Negative); Nitrite,Urine Negative (Negative); Protein,Urine 1+ (Negative)
[2019-12-16] MEDS ORDERED: INSULIN REGULAR 100 UNIT/ML VIAL SQ STA (02:52)
--- NOTE | 2019-12-16 02:57 | ED ---
General Adult HPI - General Chief complaint: Urogenital Stated complaint: Kidney Pain Time Seen by Provider: 12/16/19 00:48 Source: patient Mode of arrival: ambulatory Limitations: no limitations - History of Present Illness Initial comments: This patient is a 44-year-old woman with history of chronic flank pains who presents with exacerbation of flank pain. She also is having some frequency, urgency and hematuria. Patient has not had fever or chills. Onset/Timin -: days(s) Location: left (Flank) Radiation: non-radiation Quality: aching Consistency: constant Improves with: none Worsens with: none Associated Symptoms: other (Urgency and frequency) - Related Data Home Medications Medication Instructions Recorded Confirmed oxyCODONE-APAP 10-325MG [Percocet 1 tab PO QID PRN 08/29/17 08/30/19 10-325 mg] OXcarbazepine [Trileptal] 300 mg PO BID 02/05/18 08/30/19 Mirtazapine [Remeron] 15 mg PO HS 03/12/18 08/30/19 PARoxetine HCL [Paxil] 40 mg PO DAILY 03/12/18 08/30/19 Topiramate [Topamax] 100 mg PO BID 03/12/18 08/30/19 PARoxetine [Paxil] 20 mg PO DAILY 06/04/18 08/30/19 ARIPiprazole [Abilify] 10 mg PO DAILY 07/16/19 08/30/19 Atorvastatin [Lipitor] 40 mg PO DAILY 07/16/19 08/30/19 Benzoyl Peroxide [Benzac AC Wash] 1 applic TOPICAL BID 07/16/19 08/30/19 Clindamycin 1% Pledgets 1 applic TOPICAL BID 07/16/19 08/30/19 Loratadine [Claritin] 10 mg PO DAILY 07/16/19 08/30/19 metFORMIN HCL 1,000 mg PO BID 07/16/19 08/30/19 Previous Rx's Medication Instructions Recorded Lisinopril [Zestril] 10 mg PO HS tab 08/02/17 SUMAtriptan SUCCINATE [Imitrex] 100 mg PO DAILY PRN tab 08/02/17 Cefuroxime Axetil [Ceftin] 500 mg PO BID #14 tab 07/17/19 Ciprofloxacin HCl [Cipro] 500 mg PO Q12H 7 Days #14 tab 09/03/19 Ciprofloxacin HCl [Cipro] 500 mg PO Q12HR #14 tablet 09/17/19 Cephalexin [Keflex] 500 mg PO QID 10 Days #40 cap 09/28/19 Ondansetron Odt [Zofran Odt] 4 mg PO Q8HR PRN #10 tab 09/28/19 Cephalexin [Keflex] 500 mg PO Q12HR #20 cap 10/23/19 Cephalexin [Keflex] 500 mg PO Q6HR 14 Days #48 cap 10/26/19 Allergies Allergy/AdvReac Type Severity Reaction Status Date / Time bupropion HCl Allergy Rash/Hives Verified 12/16/19 00:44 [From Wellbutrin] divalproex sodium Allergy Unknown Verified 12/16/19 00:44 [From Depakote] fentanyl Allergy Swelling Verified 12/16/19 00:44 Iodinated Contrast Media Allergy Anaphylaxis Verified 12/16/19 00:44 [Iodinated Contrast Media - IV Dye] orange juice [[place]] Allergy Rash/Hives Verified 12/16/19 00:44 Sulfa (Sulfonamide Allergy Rash/Hives Verified 12/16/19 00:44 Antibiotics) Penicillins AdvReac Nausea & Verified 12/16/19 00:44 Vomiting Review of Systems ROS Statement: Those systems with pertinent positive or pertinent negative responses have been documented in the HPI. ROS Other: All systems not noted in ROS Statement are negative. Constitutional: Denies: fever, chills Respiratory: Denies: cough, dyspnea Cardiovascular: Reports: palpitations. Denies: chest pain, edema, syncope Gastrointestinal: Reports: as per HPI, abdominal pain (Left flank), nausea, vomiting. 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 History of Any Multi-Drug Resistant Organisms: ESBL Date of last positivie culture/infection: 05/14/17 MDRO Source:: ESBL URINE, Past Surgical History: Bladder Surgery, Section, Cholecystectomy, Hysterectomy, Orthopedic Surgery, Tubal Ligation Additional Past Surgical History / Comment(s): R ovarian cystectomy, laparoscopic surgery for L ovary that had attached to the bowel, D&C, numerous lithotripsies, nephroscopies, cystoscopies and stents to ureters-none in place at this time, L robotic pyeloplasty with post op infection around kidney which then required a picc line/later removed (pt states was not MRSA), L rotator cuff repair, L wrist tendon surgery, colonoscopy Past Anesthesia/Blood Transfusion Reactions: Family History of Problems w/ Anesthesia Additional Past Anesthesia/Blood Transfusion Reaction / Comment(s): dad-hard time waking up due to enzyme problems in liver Past Psychological History: ADD/ADHD, Anxiety, Bipolar, Depression, PTSD Smoking Status: Current every day smoker Past Alcohol Use History: None Reported Past Drug Use History: None Reported - Past Family History Brother(s) Family Medical History: Cancer Additional Family Medical History / Comment(s): testicular Father Family Medical History: Coronary Artery Disease (CAD), CVA/TIA, Diabetes Mellitus, Renal Disease Additional Family Medical History / Comment(s): GLAUCOMA,NEUROPATHY HAD TRIPLE CABG, at 56yrs from renal disease. Mother Family Medical History: Hyperlipidemia Additional Family Medical History / Comment(s): DDD, HAD 3 vessel CABG AGE 54. General Exam Limitations: no limitations General appearance: alert, in no apparent distress Head exam: Present: atraumatic Respiratory exam: Present: normal lung sounds bilaterally. Absent: respiratory distress, wheezes, rales, rhonchi, stridor Cardiovascular Exam: Present: regular rate, normal rhythm, bradycardia, ta chycardia GI/Abdominal exam: Present: soft. Absent: distended, tenderness, guarding, rebound, rigid, mass Extremities exam: Present: normal inspection, normal capillary refill Back exam: Present: normal inspection. Absent: CVA tenderness (R), CVA tenderness (L) Neurological exam: Present: alert Skin exam: Present: warm, dry, intact, normal color. Absent: rash Course Vital Signs 12/16/19 12/16/19 00:40 03:16 Temperature 98 F Pulse Rate 105 H 80 Respiratory 18 18 Rate Blood Pressure 133/84 115/81 O2 Sat by Pulse 98 99 Oximetry Medical Decision Making - Lab Data Result diagrams: 12/16/19 01:10 12/16/19 01:09 Lab Results 12/16/19 12/16/19 12/16/19 Range/Units 01:09 01:09 01:09 WBC (3.8-10.6) k/uL RBC (3.80-5.40) m/uL Hgb (11.4-16.0) gm/dL Hct (34.0-46.0) % MCV (80.0-100.0) fL MCH (25.0-35.0) pg MCHC (31.0-37.0) g/dL RDW (11.5-15.5) % Plt Count (150-450) k/uL Neutrophils % % Lymphocytes % % Monocytes % % Eosinophils % % Basophils % % Neutrophils # (1.3-7.7) k/uL Lymphocytes # (1.0-4.8) k/uL Monocytes # (0-1.0) k/uL Eosinophils # (0-0.7) k/uL Basophils # (0-0.2) k/uL Sodium 134 L (137-145) mmol/L Potassium 3.7 (3.5-5.1) mmol/L Chloride 104 (98-107) mmol/L Carbon Dioxide 19 L (22-30) mmol/L Anion Gap 11 mmol/L BUN 7 (7-17) mg/dL Creatinine 0.57 (0.52-1.04) mg/dL Est GFR (CKD-EPI)AfAm >90 (>60 ml/min/1.73 sqM) Est GFR (CKD-EPI)NonAf >90 (>60 ml/min/1.73 sqM) Glucose 324 H (74-99) mg/dL Calcium 9.1 (8.4-10.2) mg/dL Urine Color Yellow Urine Appearance Cloudy H (Clear) Urine pH 6.0 (5.0-8.0) Ur Specific [place] 1.020 (1.001-1.035) Urine Protein 1+ H (Negative) Urine Glucose (UA) 3+ H (Negative) Urine Ketones Negative (Negative) Urine Blood Large (Negative) Urine Nitrite Negative (Negative) Urine Bilirubin Negative (Negative) Urine Urobilinogen 2.0 (<2.0) mg/dL Ur Leukocyte Esterase Moderate (Negative) Urine RBC >182 H (0-5) /hpf Urine WBC 44 H (0-5) /hpf Ur Squamous Epith Cells 9 H (0-4) /hpf Calcium Oxalate Crystal Many H (None) /hpf Urine HCG, Qual Not Detected (Not Detectd) 12/16/19 Range/Units 01:10 WBC 11.4 H (3.8-10.6) k/uL RBC 4.76 (3.80-5.40) m/uL Hgb 13.7 (11.4-16.0) gm/dL Hct 42.0 (34.0-46.0) % MCV 88.2 (80.0-100.0) fL MCH 28.7 (25.0-35.0) pg MCHC 32.5 (31.0-37.0) g/dL RDW 12.7 (11.5-15.5) % Plt Count 246 (150-450) k/uL Neutrophils % 52 % Lymphocytes % 38 % Monocytes % 5 % Eosinophils % 3 % Basophils % 1 % Neutrophils # 5.9 (1.3-7.7) k/uL Lymphocytes # 4.3 (1.0-4.8) k/uL Monocytes # 0.5 (0-1.0) k/uL Eosinophils # 0.3 (0-0.7) k/uL Basophils # 0.1 (0-0.2) k/uL Sodium (137-145) mmol/L Potassium (3.5-5.1) mmol/L Chloride (98-107) mmol/L Carbon Dioxide (22-30) mmol/L Anion Gap mmol/L BUN (7-17) mg/dL Creatinine (0.52-1.04) mg/dL Est GFR (CKD-EPI)AfAm (>60 ml/min/1.73 sqM) Est GFR (CKD-EPI)NonAf (>60 ml/min/1.73 sqM) Glucose (74-99) mg/dL Calcium (8.4-10.2) mg/dL Urine Color Urine Appearance (Clear) Urine pH (5.0-8.0) Ur Specific [place] (1.001-1.035) Urine Protein (Negative) Urine Glucose (UA) (Negative) Urine Ketones (Negative) Urine Blood (Negative) Urine Nitrite (Negative) Urine Bilirubin (Negative) Urine Urobilinogen (<2.0) mg/dL Ur Leukocyte Esterase (Negative) Urine RBC (0-5) /hpf Urine WBC (0-5) /hpf Ur Squamous Epith Cells (0-4) /hpf Calcium Oxalate Crystal (None) /hpf Urine HCG, Qual (Not Detectd) Disposition Clinical Impression: Left flank pain, Hyperglycemia Disposition: HOME SELF-CARE Condition: Good Instructions (If sedation given, give patient instructions): Kidney Stones (ED), Diabetic Hyperglycemia (ED) Is patient prescribed a controlled substance at d/c from ED?: No Referrals: Melchor Stevens MD [Primary Care Provider] - 1-2 days
[2019-12-16 03:17] VITALS: BP 115/81; PULSE 80
== END 2019-12-16 03:42 | disposition home or self-care (01) ==
LOC: EC 00:36
DX: R10.9 Unspecified abdominal pain (principal); E11.65 Type 2 diabetes mellitus with hyperglycemia; E78.5 Hyperlipidemia, unspecified; I10 Essential (primary) hypertension; F31.9 Bipolar disorder, unspecified; F41.9 Anxiety disorder, unspecified; F90.9 Attention-deficit hyperactivity disorder, unspecified type; F43.10 Post-traumatic stress disorder, unspecified; F17.200 Nicotine dependence, unspecified, uncomplicated; Z79.899 Other long term (current) drug therapy; Z79.84 Long term (current) use of oral hypoglycemic drugs; Z88.0 Allergy status to penicillin; Z88.2 Allergy status to sulfonamides; Z88.5 Allergy status to narcotic agent; Z88.8 Allergy status to other drugs, medicaments and biological substances; Z91.041 Radiographic dye allergy status; Z91.018 Allergy to other foods; Z90.710 Acquired absence of both cervix and uterus; Z90.49 Acquired absence of other specified parts of digestive tract; Z98.51 Tubal ligation status
CPT/HCPCS: 36415; 80048; 85025; 81001; 81025; 99284; 96374; 96375; 96376; J2270; J2405

== ENCOUNTER 2020-01-02 01:37 | Emergency (ER) | payer OTHER ==
[2020-01-02] MEDS ORDERED: MORPHINE SULFATE 4 MG/ML SYRINGE IV STA (02:17)
[2020-01-02] MEDS ORDERED: SODIUM CHLORIDE 0.9% 1,000 ML IV ONE (02:17)
[2020-01-02 02:20] LABS: Appearance,Urine Cloudy (Clear); Bacteria,Urine Occasional /hpf; Bilirubin,Urine Negative (Negative); Blood,Urine Moderate (Negative); Budding Yeast,Urine Few /hpf; Color,Urine Yellow; Glucose,Urine (UA) 4+ (Negative); Ketones,Urine Trace (Negative); Leukocyte Esterase,Urine Large (Negative); Mucus,Urine Rare /hpf; Nitrite,Urine Negative (Negative); PH, Urine 5.5 (5.0-8.0); Protein,Urine Trace (Negative); RBC,Urine 112 /hpf (0-5); Specific Gravity,Urine 1.018 (1.001-1.035); Squamous Epithelial Cell,Urine 10 /hpf (0-4); Urobilinogen,Urine <2.0 mg/dL (<2.0); WBC,Urine 88 /hpf (0-5)
--- NOTE | 2020-01-02 02:45 | ED ---
General Adult HPI - General Chief complaint: Urogenital Stated complaint: Blood in urine, flank pain Time Seen by Provider: 01/02/20 02:00 Source: patient Mode of arrival: ambulatory Limitations: no limitations - History of Present Illness Initial comments: This is a 44-year-old female well-known to the emergency department for frequent visits for flank pain. Patient has recurrent kidney stones. Patient reports that she followed with her primary care physician today she received IM Toradol with only minimal temporary improvement in her pain. She also took a home Percocet with minimal improvement which prompted her to come to the ER for evaluation. Patient also reports that she's had scant yellow discharge from her vagina which is atypical for her as she is status post total hysterectomy. She is sexually active but has had only had 1 partner has no concern for sexually transmitted infections. - Related Data Home Medications Medication Instructions Recorded Confirmed oxyCODONE-APAP 10-325MG [Percocet 1 tab PO QID PRN 08/29/17 08/30/19 10-325 mg] OXcarbazepine [Trileptal] 300 mg PO BID 02/05/18 08/30/19 Mirtazapine [Remeron] 15 mg PO HS 03/12/18 08/30/19 PARoxetine HCL [Paxil] 40 mg PO DAILY 03/12/18 08/30/19 Topiramate [Topamax] 100 mg PO BID 03/12/18 08/30/19 PARoxetine [Paxil] 20 mg PO DAILY 06/04/18 08/30/19 ARIPiprazole [Abilify] 10 mg PO DAILY 07/16/19 08/30/19 Atorvastatin [Lipitor] 40 mg PO DAILY 07/16/19 08/30/19 Benzoyl Peroxide [Benzac AC Wash] 1 applic TOPICAL BID 07/16/19 08/30/19 Clindamycin 1% Pledgets 1 applic TOPICAL BID 07/16/19 08/30/19 Loratadine [Claritin] 10 mg PO DAILY 07/16/19 08/30/19 metFORMIN HCL 1,000 mg PO BID 07/16/19 08/30/19 Previous Rx's Medication Instructions Recorded Lisinopril [Zestril] 10 mg PO HS tab 08/02/17 SUMAtriptan SUCCINATE [Imitrex] 100 mg PO DAILY PRN tab 08/02/17 Cefuroxime Axetil [Ceftin] 500 mg PO BID #14 tab 07/17/19 Ciprofloxacin HCl [Cipro] 500 mg PO Q12H 7 Days #14 tab 09/03/19 Ciprofloxacin HCl [Cipro] 500 mg PO Q12HR #14 tablet 09/17/19 Cephalexin [Keflex] 500 mg PO QID 10 Days #40 cap 09/28/19 Ondansetron Odt [Zofran Odt] 4 mg PO Q8HR PRN #10 tab 09/28/19 Cephalexin [Keflex] 500 mg PO Q12HR #20 cap 10/23/19 Cephalexin [Keflex] 500 mg PO Q6HR 14 Days #48 cap 10/26/19 Cephalexin [Keflex] 500 mg PO Q6HR 3 Days #12 cap 01/02/20 Fluconazole [Diflucan] 150 mg PO ONCE #2 tab 01/02/20 Allergies Allergy/AdvReac Type Severity Reaction Status Date / Time bupropion HCl Allergy Rash/Hives Verified 01/02/20 01:44 [From Wellbutrin] divalproex sodium Allergy Unknown Verified 01/02/20 01:44 [From Depakote] fentanyl Allergy Swelling Verified 01/02/20 01:44 Iodinated Contrast Media Allergy Anaphylaxis Verified 01/02/20 01:44 [Iodinated Contrast Media - IV Dye] orange juice [[place]] Allergy Rash/Hives Verified 01/02/20 01:44 Sulfa (Sulfonamide Allergy Rash/Hives Verified 01/02/20 01:44 Antibiotics) Penicillins AdvReac Nausea & Verified 01/02/20 01:44 Vomiting Review of Systems ROS Statement: Those systems with pertinent positive or pertinent negative responses have been documented in the HPI. ROS Other: All systems not noted in ROS Statement are negative. 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 History of Any Multi-Drug Resistant Organisms: ESBL Date of last positivie culture/infection: 05/14/17 MDRO Source:: ESBL URINE, Past Surgical History: Bladder Surgery, Section, Cholecystectomy, Hys terectomy, Orthopedic Surgery, Tubal Ligation Additional Past Surgical History / Comment(s): R ovarian cystectomy, laparoscopic surgery for L ovary that had attached to the bowel, D&C, numerous lithotripsies, nephroscopies, cystoscopies and stents to ureters-none in place a t this time, L robotic pyeloplasty with post op infection around kidney which then required a picc line/later removed (pt states was not MRSA), L rotator cuff repair, L wrist tendon surgery, colonoscopy Past Anesthesia/Blood Transfusion Reactions: Family History of Problems w/ Anesthesia Additional Past Anesthesia/Blood Transfusion Reaction / Comment(s): dad-hard time waking up due to enzyme problems in liver Past Psychological History: ADD/ADHD, Anxiety, Bipolar, Depression, PTSD Smoking Status: Current every day smoker Past Alcohol Use History: None Reported Past Drug Use History: None Reported - Past Family History Brother(s) Family Medical History: Cancer Additional Family Medical History / Comment(s): testicular Father Family Medical History: Coronary Artery Disease (CAD), CVA/TIA, Diabetes Mellitus, Renal Disease Additional Family Medical History / Comment(s): GLAUCOMA,NEUROPATHY HAD TRIPLE CABG, at 56yrs from renal disease. Mother Family Medical History: Hyperlipidemia Additional Family Medical History / Comment(s): DDD, HAD 3 vessel CABG AGE 54. General Exam - General Exam Comments Initial Comments: Physical Exam GENERAL: Patient is well-developed and well-nourished. Patient is nontoxic and well-hydrated and is in no distress. HENT: Normocephalic, Atraumatic. EYES: PERRL, EOMI PULMONARY: Unlabored respirations. CARDIOVASCULAR: RRR Warm and well perfused extremities ABDOMEN: Non-distended SKIN: No rashes or bruising : Normal external genitalia Thick white vaginal discharge consistent with yeast infection NEUROLOGIC: Alert and oriented Normal speech Normal gait MUSCULOSKELETAL: Moving all extremities with no apparent injury PSYCHIATRIC: No SI/HI Limitations: no limitations Course Vital Signs 01/02/20 01/02/20 01:41 05:05 Temperature 98 F 97.6 F Pulse Rate 98 77 Respiratory 18 16 Rate Blood Pressure 116/72 111/75 O2 Sat by Pulse 100 97 Oximetry Medical Decision Making - Medical Decision Making She was seen and evaluated history was consistent with likely renal colic Urinalysis with hematuria hospital evidence of UTI, patient with history with antibiotics and discharged with Keflex Pelvic exam patient is status post total hysterectomy. Vaginal cuff has some thick white discharge consistent with yeast infection cultures were obtained She was discharged with Diflucan Patient is followed with local urology for her chronic kidney stones and flank pain has been referred to the [facility] for further management. - Lab Data Result diagrams: 01/02/20 02:52 01/02/20 02:52 Lab Results 01/02/20 01/02/20 01/02/20 Range/Units 02:01 02:52 02:52 WBC 10.9 H (3.8-10.6) k/uL RBC 4.65 (3.80-5.40) m/uL Hgb 13.4 (11.4-16.0) gm/dL Hct 41.3 (34.0-46.0) % MCV 88.7 (80.0-100.0) fL MCH 28.9 (25.0-35.0) pg MCHC 32.6 (31.0-37.0) g/dL RDW 12.8 (11.5-15.5) % Plt Count 246 (150-450) k/uL Neutrophils % 58 % Lymphocytes % 32 % Monocytes % 5 % Eosinophils % 3 % Basophils % 1 % Neutrophils # 6.3 (1.3-7.7) k/uL Lymphocytes # 3.5 (1.0-4.8) k/uL Monocytes # 0.6 (0-1.0) k/uL Eosinophils # 0.3 (0-0.7) k/uL Basophils # 0.1 (0-0.2) k/uL Sodium 135 L (137-145) mmol/L Potassium 3.9 (3.5-5.1) mmol/L Chloride 105 (98-107) mmol/L Carbon Dioxide 19 L (22-30) mmol/L Anion Gap 11 mmol/L BUN 8 (7-17) mg/dL Creatinine 0.56 (0.52-1.04) mg/dL Est GFR (CKD-EPI)AfAm >90 (>60 ml/min/1.73 sqM) Est GFR (CKD-EPI)NonAf >90 (>60 ml/min/1.73 sqM) Glucose 297 H (74-99) mg/dL Calcium 9.5 (8.4-10.2) mg/dL Urine Color Yellow Urine Appearance Cloudy H (Clear) Urine pH 5.5 (5.0-8.0) Ur Specific [place] 1.018 (1.001-1.035) Urine Protein Trace H (Negative) Urine Glucose (UA) 4+ H (Negative) Urine Ketones Trace H (Negative) Urine Blood Moderate H (Negative) Urine Nitrite Negative (Negative) Urine Bilirubin Negative (Negative) Urine Urobilinogen <2.0 (<2.0) mg/dL Ur Leukocyte Esterase Large H (Negative) Urine RBC 112 H (0-5) /hpf Urine WBC 88 H (0-5) /hpf Ur Squamous Epith Cells 10 H (0-4) /hpf Urine Bacteria Occasional H (None) /hpf Urine Mucus Rare H (None) /hpf Urine Yeast (Budding) Few H (None) /hpf Trichomonas Ag (Rapid) (Negative) 01/02/20 Range/Units 04:25 WBC (3.8-10.6) k/uL RBC (3.80-5.40) m/uL Hgb (11.4-16.0) gm/dL Hct (34.0-46.0) % MCV (80.0-100.0) fL MCH (25.0-35.0) pg MCHC (31.0-37.0) g/dL RDW (11.5-15.5) % Plt Count (150-450) k/uL Neutrophils % % Lymphocytes % % Monocytes % % Eosinophils % % Basophils % % Neutrophils # (1.3-7.7) k/uL Lymphocytes # (1.0-4.8) k/uL Monocytes # (0-1.0) k/uL Eosinophils # (0-0.7) k/uL Basophils # (0-0.2) k/uL Sodium (137-145) mmol/L Potassium (3.5-5.1) mmol/L Chloride (98-107) mmol/L Carbon Dioxide (22-30) mmol/L Anion Gap mmol/L BUN (7-17) mg/dL Creatinine (0.52-1.04) mg/dL Est GFR (CKD-EPI)AfAm (>60 ml/min/1.73 sqM) Est GFR (CKD-EPI)NonAf (>60 ml/min/1.73 sqM) Glucose (74-99) mg/dL Calcium (8.4-10.2) mg/dL Urine Color Urine Appearance (Clear) Urine pH (5.0-8.0) Ur Specific [place] (1.001-1.035) Urine Protein (Negative) Urine Glucose (UA) (Negative) Urine Ketones (Negative) Urine Blood (Negative) Urine Nitrite (Negative) Urine Bilirubin (Negative) Urine Urobilinogen (<2.0) mg/dL Ur Leukocyte Esterase (Negative) Urine RBC (0-5) /hpf Urine WBC (0-5) /hpf Ur Squamous Epith Cells (0-4) /hpf Urine Bacteria (None) /hpf Urine Mucus (None) /hpf Urine Yeast (Budding) (None) /hpf Trichomonas Ag (Rapid) Positive H (Negative) Disposition Clinical Impression: Renal colic, Vaginal yeast infection Disposition: HOME SELF-CARE Condition: Stable Prescriptions: Fluconazole [Diflucan] 150 mg PO ONCE #2 tab Cephalexin [Keflex] 500 mg PO Q6HR 3 Days #12 cap Is patient prescribed a controlled substance at d/c from ED?: No Referrals: Melchor Stevens MD [Primary Care Provider] - 1-2 days
[2020-01-02 03:05] LABS: Basophils # (A) 0.1 k/uL (0-0.2); Basophils % (A) 1 %; Eosinophils # (A) 0.3 k/uL (0-0.7); Eosinophils % (A) 3 %; HCT 41.3 % (34.0-46.0); HGB 13.4 gm/dL (11.4-16.0); Lymphocytes # (A) 3.5 k/uL (1.0-4.8); Lymphocytes % (A) 32 %; MCH 28.9 pg (25.0-35.0); MCHC 32.6 g/dL (31.0-37.0); MCV 88.7 fL (80.0-100.0); Mean Platelet Volume 7.8; Monocytes # (A) 0.6 k/uL (0-1.0); Monocytes % (A) 5 %; Neutrophils # (A) 6.3 k/uL (1.3-7.7); Neutrophils % (A) 58 %; Platelet Count 246 k/uL (150-450); RBC 4.65 m/uL (3.80-5.40); RDW 12.8 % (11.5-15.5); WBC 10.9 k/uL (3.8-10.6)
[2020-01-02 03:13] LABS: African American GFR (CKD) >90 (>60 ml/min/1.73 sqM); Anion Gap 11 mmol/L; Blood Urea Nitrogen 8 mg/dL (7-17); Calcium 9.5 mg/dL (8.4-10.2); Carbon Dioxide 19 mmol/L (22-30); Chloride 105 mmol/L (98-107); Glucose 297 mg/dL (74-99); Non-African American GFR(CKD) >90 (>60 ml/min/1.73 sqM); Potassium 3.9 mmol/L (3.5-5.1); Sodium 135 mmol/L (137-145)
[2020-01-02] MEDS ORDERED: KETOROLAC 30 MG/ML 1 ML VIAL IVP ONE (04:08)
[2020-01-02 10:34] VITALS: BP 111/75; PULSE 77; RESP 16; TEMP 97.6
== END 2020-01-02 05:05 | disposition home or self-care (01) ==
LOC: EC 01:37
DX: N23 Unspecified renal colic (principal); B37.3 Candidiasis of vulva and vagina; F41.9 Anxiety disorder, unspecified; F31.9 Bipolar disorder, unspecified; F43.10 Post-traumatic stress disorder, unspecified; F17.200 Nicotine dependence, unspecified, uncomplicated; E11.9 Type 2 diabetes mellitus without complications; E78.5 Hyperlipidemia, unspecified; I10 Essential (primary) hypertension; G43.909 Migraine, unspecified, not intractable, without status migrainosus; Z79.84 Long term (current) use of oral hypoglycemic drugs; Z79.899 Other long term (current) drug therapy; Z88.0 Allergy status to penicillin; Z88.2 Allergy status to sulfonamides; Z91.018 Allergy to other foods; Z91.041 Radiographic dye allergy status; Z88.5 Allergy status to narcotic agent; Z88.8 Allergy status to other drugs, medicaments and biological substances; Z90.49 Acquired absence of other specified parts of digestive tract; Z87.442 Personal history of urinary calculi; Z90.710 Acquired absence of both cervix and uterus
CPT/HCPCS: 36415; 80048; 85025; 81001; 87808; 87491; 87591; 87070; 87086; 99284; 96365; 96375 ×2; 96361 ×2; J2270; J0696; J1885

== ENCOUNTER 2020-01-25 02:51 | Emergency (ER) | payer OTHER ==
[2020-01-25 03:34] LABS: Appearance,Urine Cloudy (Clear); Bilirubin,Urine Negative (Negative); Blood,Urine Large (Negative); Color,Urine Light Red; Glucose,Urine (UA) 4+ (Negative); Ketones,Urine Trace (Negative); Leukocyte Esterase,Urine Negative (Negative); Mucus,Urine Rare /hpf; Nitrite,Urine Negative (Negative); PH, Urine 5.5 (5.0-8.0); Protein,Urine Trace (Negative); RBC,Urine >182 /hpf (0-5); Specific Gravity,Urine 1.028 (1.001-1.035); Squamous Epithelial Cell,Urine 3 /hpf (0-4); Urobilinogen,Urine <2.0 mg/dL (<2.0); WBC,Urine 3 /hpf (0-5)
[2020-01-25] MEDS ORDERED: KETOROLAC 30 MG/ML 1 ML VIAL IM STA (03:45)
--- NOTE | 2020-01-25 03:48 | ED ---
General Adult HPI - General Chief complaint: Back Pain/Injury Stated complaint: Kidney Stones Time Seen by Provider: 01/25/20 02:58 Source: patient Mode of arrival: ambulatory Limitations: no limitations - History of Present Illness Initial comments: Leilani is a 44-year-old female with history recurrent kidney stones and intractable left-sided flank pain for which she is followed with urology for a number of years. Patient's well-known to the ER for these complaints. Patient presents today stating that she's had 2 days of worsening left-sided flank pain. She's taken her home Toradol and Percocet with no improvement in her discomfort. She states when the pain gets bad she becomes nauseated and has had some episodes of nonbloody nonbilious emesis but has no other abdominal pain. No fevers chills or cough. She states that she is scheduled to get a second opinion from a new urologist next week at the [facility]. - Related Data Home Medications Medication Instructions Recorded Confirmed oxyCODONE-APAP 10-325MG [Percocet 1 tab PO QID PRN 08/29/17 08/30/19 10-325 mg] OXcarbazepine [Trileptal] 300 mg PO BID 02/05/18 08/30/19 Mirtazapine [Remeron] 15 mg PO HS 03/12/18 08/30/19 PARoxetine HCL [Paxil] 40 mg PO DAILY 03/12/18 08/30/19 Topiramate [Topamax] 100 mg PO BID 03/12/18 08/30/19 PARoxetine [Paxil] 20 mg PO DAILY 06/04/18 08/30/19 ARIPiprazole [Abilify] 10 mg PO DAILY 07/16/19 08/30/19 Atorvastatin [Lipitor] 40 mg PO DAILY 07/16/19 08/30/19 Benzoyl Peroxide [Benzac AC Wash] 1 applic TOPICAL BID 07/16/19 08/30/19 Clindamycin 1% Pled[place] 1 applic TOPICAL BID 07/16/19 08/30/19 Loratadine [Claritin] 10 mg PO DAILY 07/16/19 08/30/19 metFORMIN HCL 1,000 mg PO BID 07/16/19 08/30/19 Previous Rx's Medication Instructions Recorded SUMAtriptan succinate [Imitrex] 100 mg PO DAILY PRN tab 08/02/17 lisinopriL [Zestril] 10 mg PO HS tab 08/02/17 Cefuroxime Axetil [Ceftin] 500 mg PO BID #14 tab 07/17/19 Ciprofloxacin HCl [Cipro] 500 mg PO Q12H 7 Days #14 tab 09/03/19 Ciprofloxacin HCl [Cipro] 500 mg PO Q12HR #14 tablet 09/17/19 Cephalexin [Keflex] 500 mg PO QID 10 Days #40 cap 09/28/19 Ondansetron Odt [Zofran Odt] 4 mg PO Q8HR PRN #10 tab 09/28/19 Cephalexin [Keflex] 500 mg PO Q12HR #20 cap 10/23/19 Cephalexin [Keflex] 500 mg PO Q6HR 14 Days #48 cap 10/26/19 Cephalexin [Keflex] 500 mg PO Q6HR 3 Days #12 cap 01/02/20 Fluconazole [Diflucan] 150 mg PO ONCE #2 tab 01/02/20 Allergies Allergy/AdvReac Type Severity Reaction Status Date / Time bupropion HCl Allergy Rash/Hives Verified 01/25/20 02:54 [From Wellbutrin] divalproex sodium Allergy Unknown Verified 01/25/20 02:54 [From Depakote] fentanyl Allergy Swelling Verified 01/25/20 02:54 Iodinated Contrast Media Allergy Anaphylaxis Verified 01/25/20 02:54 [Iodinated Contrast Media - IV Dye] orange juice [[place]] Allergy Rash/Hives Verified 01/25/20 02:54 Sulfa (Sulfonamide Allergy Rash/Hives Verified 01/25/20 02:54 Antibiotics) Penicillins AdvReac Nausea & Verified 01/25/20 02:54 Vomiting Review of Systems ROS Statement: Those systems with pertinent positive or pertinent negative responses have been documented in the HPI. ROS Other: All systems not noted in ROS Statement are negative. 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 History of Any Multi-Drug Resistant Organisms: ESBL Date of last positivie culture/infection: 05/14/17 MDRO Source:: ESBL URINE, Past Surgical History: Bladder Surgery, Section, Cholecystectomy, Hysterectomy, Orthopedic Surgery, Tubal Ligation Additional Past Surgical History / Comment(s): R ovarian cystectomy, laparoscopic surgery for L ovary that had attached to the bowel, D&C, numerous lithotripsies, nephroscopies, cystoscopies and stents to ureters-none in place at this time, L robotic pyeloplasty with post op infection around kidney which then required a picc line/later removed (pt states was not MRSA), L rotator cuff repair, L wrist tendon surgery, colonoscopy Past Anesthesia/Blood Transfusion Reactions: Family History of Problems w/ Anesthesia Additional Past Anesthesia/Blood Transfusion Reaction / Comment(s): dad-hard time waking up due to enzyme problems in liver Past Psychological History: ADD/ADHD, Anxiety, Bipolar, Depression, PTSD Smoking Status: Current every day smoker Past Alcohol Use History: None Reported Past Drug Use History: None Reported - Past Family History Brother(s) Family Medical History: Cancer Additional Family Medical History / Comment(s): testicular Father Family Medical History: Coronary Artery Disease (CAD), CVA/TIA, Diabetes Mellitus, Renal Disease Additional Family Medical History / Comment(s): GLAUCOMA,NEUROPATHY HAD TRIPLE CABG, at 56yrs from renal disease. Mother Family Medical History: Hyperlipidemia Additional Family Medical History / Comment(s): DDD, HAD 3 vessel CABG AGE 54. General Exam - General Exam Comments Initial Comments: Physical Exam GENERAL: Patient is well-developed and well-nourished. Patient is nontoxic and well-hydrated and is in no distress. Patient resting in bed in no apparent distress HENT: Normocephalic, Atraumatic. EYES: PERRL, EOMI PULMONARY: Unlabored respirations. CARDIOVASCULAR: RRR Warm and well perfused extremities ABDOMEN: Non-distended Soft Tenderness to percussion of left flank SKIN: No rashes or bruising : Deferred NEUROLOGIC: Alert and oriented Normal speech Normal gait MUSCULOSKELETAL: Moving all extremities with no apparent injury PSYCHIATRIC: No SI/HI Limitations: no limitations Course Vital Signs 01/25/20 01/25/20 01/25/20 02:55 04:03 05:12 Temperature 98.2 F 98.4 F 97.8 F Pulse Rate 107 H 75 78 Respiratory 16 18 16 Rate Blood Pressure 134/82 107/62 115/75 O2 Sat by Pulse 99 96 96 Oximetry Medical Decision Making - Medical Decision Making Patient was seen and evaluated history is obtained from the patient and review of medical record Patient is very well-known for her chronic flank pain Patient has not had a computed tomography scan in over one year, IM medications and computed tomography scan were ordered CT scan reveals chronic hydronephrosis no acute stones no cause for the hematuria Results were discussed with the patient, advised the patient that with no stones noted narcotics are not indicated, patient is understanding of this agreeable to plan for discharge home. - Lab Data Lab Results 01/25/20 Range/Units 03:22 Urine Color Light Red Urine Appearance Cloudy H (Clear) Urine pH 5.5 (5.0-8.0) Ur Specific [place] 1.028 (1.001-1.035) Urine Protein Trace H (Negative) Urine Glucose (UA) 4+ H (Negative) Urine Ketones Trace H (Negative) Urine Blood Large H (Negative) Urine Nitrite Negative (Negative) Urine Bilirubin Negative (Negative) Urine Urobilinogen <2.0 (<2.0) mg/dL Ur Leukocyte Esterase Negative (Negative) Urine RBC >182 H (0-5) /hpf Urine WBC 3 (0-5) /hpf Ur Squamous Epith Cells 3 (0-4) /hpf Urine Mucus Rare H (None) /hpf Disposition Clinical Impression: Renal colic on left side, Hematuria, Chronic pain Disposition: HOME SELF-CARE Condition: Stable Instructions (If sedation given, give patient instructions): Acute Low Back Pain (ED) Additional Instructions: Follow up with urology Return to the ER for any acute worsening of pain Is patient prescribed a controlled substance at d/c from ED?: No Referrals: Melchor Stevens MD [Primary Care Provider] - 1-2 days
--- NOTE | 2020-01-25 04:35 | CT ---
EXAMINATION TYPE: CT renal stones wo con DATE OF EXAM: 01/25/2020 COMPARISON: 08/11/2018 HISTORY: left flank pain CT DLP: 666.8 mGycm Automated exposure control for dose reduction was used. Images were obtained from the diaphragm to the floor the pelvis with no contrast. Lung bases are clear. There is no pleural effusion. Heart size is normal. There is no pericardial eff usion. There are clips from cholecystectomy. Liver shows no focal defect. Spleen is intact. Stomach i s intact. There is no pancreatic mass. The bile ducts are not dilated. There is no adrenal mass. Kidneys have normal size. There is mild left-sided hydronephrosis. Unchange d. There is small 2 mm calcification on the posterior aspect of the proximal left ureter that is prob ably not in the ureter. This could be a phlebolith. This appears unchanged compared to old exam. Left ureter is not dilated. There are multiple phleboliths in the pelvis. Right kidney shows no hydroneph rosis. There is no retroperitoneal adenopathy. The bladder distends smoothly. There is no inguinal he rnia. There is no evidence of a pelvic mass. There is hysterectomy. Appendix is posterior and appears normal. There is no mesenteric edema. There is no ascites or free a ir. There is no bowel obstruction. Fecal pattern is normal. The lumbar vertebra have fairly normal sp acing and alignment. There is no compression fracture. Bony pelvis is intact. IMPRESSION: Mild left-sided hydronephrosis unchanged. No definite obstructing calculus seen. Ureters are not dila coco. Left kidney unchanged compared to old exam. Normal appendix.
[2020-01-25 05:15] VITALS: BP 115/75; PULSE 78; RESP 16; TEMP 97.8
== END 2020-01-25 05:31 | disposition home or self-care (01) ==
LOC: EC 02:51
DX: N13.30 Unspecified hydronephrosis (principal); G89.29 Other chronic pain; N23 Unspecified renal colic; R31.9 Hematuria, unspecified; E11.9 Type 2 diabetes mellitus without complications; E78.5 Hyperlipidemia, unspecified; I10 Essential (primary) hypertension; F41.9 Anxiety disorder, unspecified; F31.9 Bipolar disorder, unspecified; G43.909 Migraine, unspecified, not intractable, without status migrainosus; E28.2 Polycystic ovarian syndrome; F17.200 Nicotine dependence, unspecified, uncomplicated; F43.10 Post-traumatic stress disorder, unspecified; Z79.84 Long term (current) use of oral hypoglycemic drugs; Z79.899 Other long term (current) drug therapy; Z88.8 Allergy status to other drugs, medicaments and biological substances; Z88.5 Allergy status to narcotic agent; Z91.041 Radiographic dye allergy status; Z88.2 Allergy status to sulfonamides; Z88.0 Allergy status to penicillin; Z91.018 Allergy to other foods; Z90.49 Acquired absence of other specified parts of digestive tract; Z87.442 Personal history of urinary calculi
CPT/HCPCS: 99284; 96372; 81001; 74150; J1885

== ENCOUNTER 2020-01-26 22:57 | Emergency (ER) | payer OTHER ==
[2020-01-26 23:02] VITALS: TEMP 98
[2020-01-26 23:13] LABS: Glucose,Whole Blood 408 mg/dL (75-99)
[2020-01-26] MEDS ORDERED: SODIUM CHLORIDE 0.9% 2,000 ML IV ONE (23:21)
[2020-01-26 23:35] LABS: Appearance,Urine Cloudy (Clear); Bilirubin,Urine Negative (Negative); Blood,Urine Large (Negative); Color,Urine Yellow; Glucose,Urine (UA) 4+ (Negative); Ketones,Urine Negative (Negative); Leukocyte Esterase,Urine Small (Negative); Nitrite,Urine Negative (Negative); Protein,Urine Trace (Negative); RBC,Urine >182 /hpf (0-5); Specific Gravity,Urine 1.026 (1.001-1.035); Squamous Epithelial Cell,Urine 3 /hpf (0-4); Urobilinogen,Urine <2.0 mg/dL (<2.0); WBC,Urine 4 /hpf (0-5)
--- NOTE | 2020-01-26 23:37 | ED ---
Recheck HPI - General Chief Complaint: Recheck/Abnormal Lab/Rx Stated Complaint: fever Time Seen by Provider: 01/26/20 23:04 Source: patient Mode of arrival: ambulatory Limitations: no limitations - History of Present Illness Initial Comments: Leilani is a 44-year-old female with a history of chronic left-sided flank pain and hematuria who presents to the ER today for evaluation of persistent pain and hyperglycemia. 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 There is no evidence of UTI the patient is discharged home she followed with her primary care this morning had a repeat urine was prescribed Cipro reports that despite being compliant with her home medication she's been hyperglycemic which prompted her visit tonight. - Related Data Home Medications Medication Instructions Recorded Confirmed oxyCODONE-APAP 10-325MG [Percocet 1 tab PO QID PRN 08/29/17 01/26/20 10-325 mg] OXcarbazepine [Trileptal] 300 mg PO BID 02/05/18 01/26/20 Mirtazapine [Remeron] 15 mg PO HS 03/12/18 01/26/20 PARoxetine HCL [Paxil] 40 mg PO DAILY 03/12/18 01/26/20 Topiramate [Topamax] 100 mg PO BID 03/12/18 01/26/20 PARoxetine [Paxil] 20 mg PO DAILY 06/04/18 01/26/20 Atorvastatin [Lipitor] 40 mg PO DAILY 07/16/19 01/26/20 Loratadine [Claritin] 10 mg PO DAILY 07/16/19 01/26/20 metFORMIN HCL 1,000 mg PO BID 07/16/19 01/26/20 ARIPiprazole [Abilify] 5 mg PO HS 01/26/20 01/26/20 Insulin Glargine,Hum.rec.anlog 20 unit SQ HS 01/26/20 01/26/20 [Basaglar Kwikpen U-100] Ondansetron Odt [Zofran Odt] 4 mg PO Q6H PRN 01/26/20 01/26/20 Short Acting Insulin Pen(Unknown) 6 units SQ AC-TID 01/26/20 01/26/20 lisinopriL [Zestril] 10 mg PO DAILY 01/26/20 01/26/20 Previous Rx's Medication Instructions Recorded SUMAtriptan succinate [Imitrex] 100 mg PO DAILY PRN tab 08/02/17 Allergies Allergy/AdvReac Type Severity Reaction Status Date / Time bupropion HCl Allergy Rash/Hives Verified 01/26/20 23:32 [From Wellbutrin] divalproex sodium Allergy Unknown Verified 01/26/20 23:32 [From Depakote] fentanyl Allergy Swelling Verified 01/26/20 23:32 Iodinated Contrast Media Allergy Anaphylaxis Verified 01/26/20 23:32 [Iodinated Contrast Media - IV Dye] orange juice [[place]] Allergy Rash/Hives Verified 01/26/20 23:32 Sulfa (Sulfonamide Allergy Rash/Hives Verified 01/26/20 23:32 Antibiotics) Penicillins AdvReac Nausea & Verified 01/26/20 23:32 Vomiting Review of Systems ROS Statement: Those systems with pertinent positive or pertinent negative responses have been documented in the HPI. ROS Other: All systems not noted in ROS Statement are negative. 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 History of Any Multi-Drug Resistant Organisms: ESBL Date of last positivie culture/infection: 05/14/17 MDRO Source:: ESBL URINE, Past Surgical History: Bladder Surgery, Section, Cholecystectomy, Hysterectomy, Orthopedic Surgery, Tubal Ligation Additional Past Surgical History / Comment(s): R ovarian cystectomy, laparosc opic surgery for L ovary that had attached to the bowel, D&C, numerous lithotripsies, nephroscopies, cystoscopies and stents to ureters-none in place at this time, L robotic pyeloplasty with post op infection around kidney which then required a picc line/later removed (pt states was not MRSA), L rotator cuff repair, L wrist tendon surgery, colonoscopy Past Anesthesia/Blood Transfusion Reactions: Family History of Problems w/ Anesthesia Additional Past Anesthesia/Blood Transfusion Reaction / Comment(s): dad-hard time waking up due to enzyme problems in liver Past Psychological History: ADD/ADHD, Anxiety, Bipolar, Depression, PTSD Smoking Status: Current every day smoker Past Alcohol Use History: None Reported Past Drug Use History: None Reported - Past Family History Brother(s) Family Medical History: Cancer Additional Family Medical History / Comment(s): testicular Father Family Medical History: Coronary Artery Disease (CAD), CVA/TIA, Diabetes Mellitus, Renal Disease Additional Family Medical History / Comment(s): GLAUCOMA,NEUROPATHY HAD TRIPLE CABG, at 56yrs from renal disease. Mother Family Medical History: Hyperlipidemia Additional Family Medical History / Comment(s): DDD, HAD 3 vessel CABG AGE 54. General Exam - General Exam Comments Initial Comments: Physical Exam GENERAL: Patient is well-developed and well-nourished. Patient is nontoxic and well-hydrated and is in no distress. HENT: Normocephalic, Atraumatic. EYES: PERRL, EOMI PULMONARY: Unlabored respirations. CARDIOVASCULAR: RRR Warm and well perfused extremities ABDOMEN: Non-distended SKIN: No rashes or bruising : Deferred NEUROLOGIC: Alert and oriented Normal speech Normal gait MUSCULOSKELETAL: Moving all extremities with no apparent injury PSYCHIATRIC: No SI/HI Limitations: no limitations Course Vital Signs 01/26/20 22:59 Temperature 98 F Pulse Rate 92 Respiratory 20 Rate Blood Pressure 126/80 O2 Sat by Pulse 96 Oximetry Medical Decision Making - Medical Decision Making The patient was seen and evaluated history is obtained from patient, plantar glucose is 408 IV fluids and labs were ordered Patient's glucose is elevated she was given insulin and IV fluids and sign urine with evidence of hematuria no obvious evidence of UTI Patient glucose improving after IV fluids and insulin at this time he feel she is stable for discharge home continued outpatient management of her multiple medical comorbidities - Lab Data Result diagrams: 01/26/20 23:39 01/26/20 23:39 Lab Results 01/26/20 01/26/20 01/26/20 Range/Units 23:12 23:12 23:39 WBC 10.8 H (3.8-10.6) k/uL RBC 4.71 (3.80-5.40) m/uL Hgb 13.5 (11.4-16.0) gm/dL Hct 41.7 (34.0-46.0) % MCV 88.4 (80.0-100.0) fL MCH 28.7 (25.0-35.0) pg MCHC 32.5 (31.0-37.0) g/dL RDW 12.6 (11.5-15.5) % Plt Count 226 (150-450) k/uL Neutrophils % 53 % Lymphocytes % 38 % Monocytes % 4 % Eosinophils % 2 % Basophils % 1 % Neutrophils # 5.7 (1.3-7.7) k/uL Lymphocytes # 4.1 (1.0-4.8) k/uL Monocytes # 0.4 (0-1.0) k/uL Eosinophils # 0.3 (0-0.7) k/uL Basophils # 0.1 (0-0.2) k/uL Sodium (137-145) mmol/L Potassium (3.5-5.1) mmol/L Chloride (98-107) mmol/L Carbon Dioxide (22-30) mmol/L Anion Gap mmol/L BUN (7-17) mg/dL Creatinine (0.52-1.04) mg/dL Est GFR (CKD-EPI)AfAm (>60 ml/min/1.73 sqM) Est GFR (CKD-EPI)NonAf (>60 ml/min/1.73 sqM) Glucose (74-99) mg/dL POC Glucose (mg/dL) 408 H (75-99) mg/dL POC Glu Bike Mechanic ID Dick Prieto Calcium (8.4-10.2) mg/dL Total Bilirubin (0.2-1.3) mg/dL AST (14-36) U/L ALT (4-34) U/L Alkaline Phosphatase (38-126) U/L Total Protein (6.3-8.2) g/dL Albumin (3.5-5.0) g/dL Urine Color Yellow Urine Appearance Cloudy H (Clear) Urine pH 7.0 (5.0-8.0) Ur Specific [place] 1.026 (1.001-1.035) Urine Protein Trace H (Negative) Urine Glucose (UA) 4+ H (Negative) Urine Ketones Negative (Negative) Urine Blood Large H (Negative) Urine Nitrite Negative (Negative) Urine Bilirubin Negative (Negative) Urine Urobilinogen <2.0 (<2.0) mg/dL Ur Leukocyte Esterase Small H (Negative) Urine RBC >182 H (0-5) /hpf Urine WBC 4 (0-5) /hpf Ur Squamous Epith Cells 3 (0-4) /hpf 01/26/20 01/27/20 Range/Units 23:39 00:46 WBC (3.8-10.6) k/uL RBC (3.80-5.40) m/uL Hgb (11.4-16.0) gm/dL Hct (34.0-46.0) % MCV (80.0-100.0) fL MCH (25.0-35.0) pg MCHC (31.0-37.0) g/dL RDW (11.5-15.5) % Plt Count (150-450) k/uL Neutrophils % % Lymphocytes % % Monocytes % % Eosinophils % % Basophils % % Neutrophils # (1.3-7.7) k/uL Lymphocytes # (1.0-4.8) k/uL Monocytes # (0-1.0) k/uL Eosinophils # (0-0.7) k/uL Basophils # (0-0.2) k/uL Sodium 136 L (137-145) mmol/L Potassium 3.7 (3.5-5.1) mmol/L Chloride 102 (98-107) mmol/L Carbon Dioxide 21 L (22-30) mmol/L Anion Gap 13 mmol/L BUN 6 L (7-17) mg/dL Creatinine 0.56 (0.52-1.04) mg/dL Est GFR (CKD-EPI)AfAm >90 (>60 ml/min/1.73 sqM) Est GFR (CKD-EPI)NonAf >90 (>60 ml/min/1.73 sqM) Glucose 418 H (74-99) mg/dL POC Glucose (mg/dL) 306 H (75-99) mg/dL POC Glu Bike Mechanic ID Dick Prieto Calcium 9.7 (8.4-10.2) mg/dL Total Bilirubin 0.5 (0.2-1.3) mg/dL AST 32 (14-36) U/L ALT 35 H (4-34) U/L Alkaline Phosphatase 109 (38-126) U/L Total Protein 6.6 (6.3-8.2) g/dL Albumin 4.2 (3.5-5.0) g/dL Urine Color Urine Appearance (Clear) Urine pH (5.0-8.0) Ur Specific [place] (1.001-1.035) Urine Protein (Negative) Urine Glucose (UA) (Negative) Urine Ketones (Negative) Urine Blood (Negative) Urine Nitrite (Negative) Urine Bilirubin (Negative) Urine Urobilinogen (<2.0) mg/dL Ur Leukocyte Esterase (Negative) Urine RBC (0-5) /hpf Urine WBC (0-5) /hpf Ur Squamous Epith Cells (0-4) /hpf Disposition Clinical Impression: Hematuria, Chronic pain Disposition: HOME SELF-CARE Condition: Stable Additional Instructions: FOllow up with urology as scheduled Establish care with an food and beverage outlets manager for management of diabetes Is patient prescribed a controlled substance at d/c from ED?: No Referrals: Melchor Stevens MD [Primary Care Provider] - 1-2 days Yuki Winchester MD [STAFF PHYSICIAN] - 1-2 days
[2020-01-26 23:55] LABS: Basophils # (A) 0.1 k/uL (0-0.2); Basophils % (A) 1 %; Eosinophils # (A) 0.3 k/uL (0-0.7); Eosinophils % (A) 2 %; HCT 41.7 % (34.0-46.0); HGB 13.5 gm/dL (11.4-16.0); Lymphocytes # (A) 4.1 k/uL (1.0-4.8); Lymphocytes % (A) 38 %; MCH 28.7 pg (25.0-35.0); MCHC 32.5 g/dL (31.0-37.0); MCV 88.4 fL (80.0-100.0); Mean Platelet Volume 8.1; Monocytes # (A) 0.4 k/uL (0-1.0); Monocytes % (A) 4 %; Neutrophils # (A) 5.7 k/uL (1.3-7.7); Neutrophils % (A) 53 %; Platelet Count 226 k/uL (150-450); RBC 4.71 m/uL (3.80-5.40); RDW 12.6 % (11.5-15.5); WBC 10.8 k/uL (3.8-10.6)
[2020-01-27 00:04] LABS: ALT 35 U/L (4-34); AST 32 U/L (14-36); African American GFR (CKD) >90 (>60 ml/min/1.73 sqM); Albumin 4.2 g/dL (3.5-5.0); Alkaline Phosphatase 109 U/L (38-126); Anion Gap 13 mmol/L; Blood Urea Nitrogen 6 mg/dL (7-17); Calcium 9.7 mg/dL (8.4-10.2); Carbon Dioxide 21 mmol/L (22-30); Chloride 102 mmol/L (98-107); Glucose 418 mg/dL (74-99); Non-African American GFR(CKD) >90 (>60 ml/min/1.73 sqM); Potassium 3.7 mmol/L (3.5-5.1); Sodium 136 mmol/L (137-145); Total Bilirubin 0.5 mg/dL (0.2-1.3); Total Protein 6.6 g/dL (6.3-8.2)
[2020-01-27] MEDS ORDERED: INSULIN REGULAR 100 UNIT/ML VIAL SQ ONE (00:10)
[2020-01-27 00:47] LABS: Glucose,Whole Blood 306 mg/dL (75-99)
[2020-01-27] MEDS ORDERED: LORazepam 1 MG TAB PO STA (00:53)
[2020-01-27 01:05] VITALS: BP 124/85; PULSE 89; RESP 18
== END 2020-01-27 01:09 | disposition home or self-care (01) ==
LOC: EC 22:57
DX: R10.9 Unspecified abdominal pain (principal); R31.9 Hematuria, unspecified; G89.29 Other chronic pain; E11.65 Type 2 diabetes mellitus with hyperglycemia; F43.10 Post-traumatic stress disorder, unspecified; I10 Essential (primary) hypertension; E78.5 Hyperlipidemia, unspecified; G43.909 Migraine, unspecified, not intractable, without status migrainosus; F41.9 Anxiety disorder, unspecified; F31.9 Bipolar disorder, unspecified; F17.200 Nicotine dependence, unspecified, uncomplicated; Z79.4 Long term (current) use of insulin; Z79.899 Other long term (current) drug therapy; Z88.0 Allergy status to penicillin; Z88.2 Allergy status to sulfonamides; Z88.8 Allergy status to other drugs, medicaments and biological substances; Z91.018 Allergy to other foods; Z91.041 Radiographic dye allergy status
CPT/HCPCS: 36415; 80053; 81001; 85025; 96360; 99283

== ENCOUNTER 2020-01-30 20:51 | Emergency (ER) | payer OTHER ==
[2020-01-30 20:54] VITALS: TEMP 98.1
[2020-01-30] MEDS ORDERED: SODIUM CHLORIDE 0.9% 500 ML 500 ML IV STA (21:05)
[2020-01-30] MEDS ORDERED: KETOROLAC 30 MG/ML 1 ML VIAL IVP STA ×2 (21:05→21:31)
[2020-01-30] MEDS ORDERED: ONDANSETRON 4 MG/2 ML VIAL IVP STA (21:06)
[2020-01-30] MEDS ORDERED: KETOROLAC 15 MG/ML 1 ML VIAL IVP STA (21:17)
[2020-01-30] MEDS ORDERED: LORazepam 2 MG/ML INJ IV STA (21:25)
--- NOTE | 2020-01-30 21:25 | ED ---
General Adult HPI - General Chief complaint: Abdominal Pain Stated complaint: Kidney Pain Time Seen by Provider: 01/30/20 20:55 Source: patient, RN notes reviewed, old records reviewed Mode of arrival: ambulatory Limitations: no limitations - History of Present Illness Initial comments: 44-year-old female patient past history of chronic flank pain and recurrent renal calculi presents ED chief complaint of left flank pain with some nausea and vomiting last 3 days. Reports it feels similar to her chronic flank pain. Denies any other acute complaints. Systemic: Pt denies fatigue, fever/chills, rash. Pt denies weakness, night sweats, weight loss. Neuro: Pt denies headache, visual disturbances, syncope or pre-syncope. HEENT: Pt denies ocular discharge or irritation, otalgia, rhinorrhea, pharyngitis or notable lymphadenopathy. Cardiopulmonary: Pt denies chest pain, SOB, heart palpitations, dyspnea on exertion. Abdominal/GI: Pt denies abdominal pain, n/v/d. : Pt denies dysuria, burning w/ urination, frequency/urgency. Denies new onset urinary or bowel incontinence. MSK: Pt denies myalgia, loss of strength or function in extremities. Neuro: Pt denies new onset weakness, paresthesias. - Related Data Home Medications Medication Instructions Recorded Confirmed oxyCODONE-APAP 10-325MG [Percocet 1 tab PO QID PRN 08/29/17 01/26/20 10-325 mg] OXcarbazepine [Trileptal] 300 mg PO BID 02/05/18 01/26/20 Mirtazapine [Remeron] 15 mg PO HS 03/12/18 01/26/20 PARoxetine HCL [Paxil] 40 mg PO DAILY 03/12/18 01/26/20 Topiramate [Topamax] 100 mg PO BID 03/12/18 01/26/20 PARoxetine [Paxil] 20 mg PO DAILY 06/04/18 01/26/20 Atorvastatin [Lipitor] 40 mg PO DAILY 07/16/19 01/26/20 Loratadine [Claritin] 10 mg PO DAILY 07/16/19 01/26/20 metFORMIN HCL 1,000 mg PO BID 07/16/19 01/26/20 ARIPiprazole [Abilify] 5 mg PO HS 01/26/20 01/26/20 Insulin Glargine,Hum.rec.anlog 20 unit SQ HS 01/26/20 01/26/20 [Basaglar Kwikpen U-100] Ondansetron Odt [Zofran Odt] 4 mg PO Q6H PRN 01/26/20 01/26/20 Short Acting Insulin Pen(Unknown) 6 units SQ AC-TID 01/26/20 01/26/20 lisinopriL [Zestril] 10 mg PO DAILY 01/26/20 01/26/20 Previous Rx's Medication Instructions Recorded SUMAtriptan succinate [Imitrex] 100 mg PO DAILY PRN tab 08/02/17 Allergies Allergy/AdvReac Type Severity Reaction Status Date / Time bupropion HCl Allergy Rash/Hives Verified 01/30/20 20:54 [From Wellbutrin] divalproex sodium Allergy Unknown Verified 01/30/20 20:54 [From Depakote] fentanyl Allergy Swelling Verified 01/30/20 20:54 Iodinated Contrast Media Allergy Anaphylaxis Verified 01/30/20 20:54 [Iodinated Contrast Media - IV Dye] orange juice [[place]] Allergy Rash/Hives Verified 01/30/20 20:54 Sulfa (Sulfonamide Allergy Rash/Hives Verified 01/30/20 20:54 Antibiotics) Penicillins AdvReac Nausea & Verified 01/30/20 20:54 Vomiting Review of Systems ROS Statement: Those systems with pertinent positive or pertinent negative responses have been documented in the HPI. ROS Other: All systems not noted in ROS Statement are negative. 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 History of Any Multi-Drug Resistant Organisms: ESBL Date of last positivie culture/infection: 05/14/17 MDRO Source:: ESBL URINE, Past Surgical History: Bladder Surgery, Section, Cholecystectomy, Hysterectomy, Orthopedic Surgery, Tubal Ligation Additional Past Surgical History / Comment(s): R ovarian cystectomy, laparosc opic surgery for L ovary that had attached to the bowel, D&C, numerous lithotripsies, nephroscopies, cystoscopies and stents to ureters-none in place at this time, L robotic pyeloplasty with post op infection around kidney which then required a picc line/later removed (pt states was not MRSA), L rotator cuff repair, L wrist tendon surgery, colonoscopy Past Anesthesia/Blood Transfusion Reactions: Family History of Problems w/ Anesthesia Additional Past Anesthesia/Blood Transfusion Reaction / Comment(s): dad-hard time waking up due to enzyme problems in liver Past Psychological History: ADD/ADHD, Anxiety, Bipolar, Depression, PTSD Smoking Status: Current every day smoker Past Alcohol Use History: None Reported Past Drug Use History: None Reported - Past Family History Brother(s) Family Medical History: Cancer Additional Family Medical History / Comment(s): testicular Father Family Medical History: Coronary Artery Disease (CAD), CVA/TIA, Diabetes Mellitus, Renal Disease Additional Family Medical History / Comment(s): GLAUCOMA,NEUROPATHY HAD TRIPLE CABG, at 56yrs from renal disease. Mother Family Medical History: Hyperlipidemia Additional Family Medical History / Comment(s): DDD, HAD 3 vessel CABG AGE 54. General Exam - General Exam Comments Initial Comments: Constitutional: NAD, AOX3, Pt has pleasant affect. HEENT: NC/AT, trachea midline, neck supple, no lymphadenopathy. External ears appear normal, without discharge. Mucous membranes moist. EOM intact. There is no scleral icterus. No pallor noted. Cardiopulmonary: RRR, no murmurs, rubs or gallops, no JVD noted. Lungs CTAB in anterior and posterior guillen. No peripheral edema. Abdominal exam: Abdomen soft and non-distended. Abdomen non-tender to palpation in all 4 quadrants. Bowel sounds active in LLQ. No hepatosplenomegaly. No ecchymosis. Left flank is mildly tender to palpation. Neuro: CN II-XII grossly intact. No nuchal rigidity. No raccon eyes, no hernandez sign. MSK: Full active ROM in upper and lower extremities, 5/5 stregnth. Limitations: no limitations Course Vital Signs 01/30/20 01/30/20 20:52 22:36 Temperature 98.1 F Pulse Rate 102 H 71 Respiratory 16 18 Rate Blood Pressure 133/79 104/70 O2 Sat by Pulse 98 100 Oximetry Medical Decision Making - Medical Decision Making 44-year-old female patient past history of chronic flank pain and recurrent renal calculi presents ED chief complaint of left flank pain with some nausea and vomiting last 3 days. Reports it feels similar to her chronic flank pain. Denies any other acute complaints. Patient vital signs are stable, afebrile. Physical exam displayed very mild left flank tenderness. Laboratory investigations are obtained to display a mild leukocytosis mildly elevated lactic acid. UA is negative as tenderness negative anion gap is 9. Patient is feeling much improved. Requesting discharge will follow-up with her primary care provider and neurology and will turn erythematous worsening symptoms. Case discussed with Dr. William. - Lab Data Result diagrams: 01/30/20 21:20 01/30/20 21:20 Lab Results 01/30/20 01/30/20 01/30/20 Range/Units 21:20 21:20 21:20 WBC 10.7 H (3.8-10.6) k/uL RBC 4.68 (3.80-5.40) m/uL Hgb 13.4 (11.4-16.0) gm/dL Hct 41.3 (34.0-46.0) % MCV 88.2 (80.0-100.0) fL MCH 28.5 (25.0-35.0) pg MCHC 32.3 (31.0-37.0) g/dL RDW 12.6 (11.5-15.5) % Plt Count 253 (150-450) k/uL Neutrophils % 59 % Lymphocytes % 33 % Monocytes % 4 % Eosinophils % 2 % Basophils % 1 % Neutrophils # 6.3 (1.3-7.7) k/uL Lymphocytes # 3.5 (1.0-4.8) k/uL Monocytes # 0.4 (0-1.0) k/uL Eosinophils # 0.3 (0-0.7) k/uL Basophils # 0.1 (0-0.2) k/uL Sodium 138 (137-145) mmol/L Potassium 3.6 (3.5-5.1) mmol/L Chloride 109 H (98-107) mmol/L Carbon Dioxide 20 L (22-30) mmol/L Anion Gap 9 mmol/L BUN 5 L (7-17) mg/dL Creatinine 0.48 L (0.52-1.04) mg/dL Est GFR (CKD-EPI)AfAm >90 (>60 ml/min/1.73 sqM) Est GFR (CKD-EPI)NonAf >90 (>60 ml/min/1.73 sqM) Glucose 213 H (74-99) mg/dL Plasma Lactic Acid Brant (0.7-2.0) mmol/L Calcium 9.5 (8.4-10.2) mg/dL Total Bilirubin 0.5 (0.2-1.3) mg/dL AST 65 H (14-36) U/L ALT 41 H (4-34) U/L Alkaline Phosphatase 113 (38-126) U/L Total Protein 6.6 (6.3-8.2) g/dL Albumin 4.1 (3.5-5.0) g/dL Lipase 196 (23-300) U/L Urine Color Light Yellow Urine Appearance Cloudy H (Clear) Urine pH 6.5 (5.0-8.0) Ur Specific [place] 1.005 (1.001-1.035) Urine Protein Negative (Negative) Urine Glucose (UA) 1+ H (Negative) Urine Ketones Negative (Negative) Urine Blood Negative (Negative) Urine Nitrite Negative (Negative) Urine Bilirubin Negative (Negative) Urine Urobilinogen <2.0 (<2.0) mg/dL Ur Leukocyte Esterase Negative (Negative) Urine RBC <1 (0-5) /hpf Urine WBC 1 (0-5) /hpf Ur Squamous Epith Cells 9 H (0-4) /hpf Urine Bacteria Rare H (None) /hpf Urine Mucus Rare H (None) /hpf Acetone, Qual Negative (Negative) 01/30/20 Range/Units 21:20 WBC (3.8-10.6) k/uL RBC (3.80-5.40) m/uL Hgb (11.4-16.0) gm/dL Hct (34.0-46.0) % MCV (80.0-100.0) fL MCH (25.0-35.0) pg MCHC (31.0-37.0) g/dL RDW (11.5-15.5) % Plt Count (150-450) k/uL Neutrophils % % Lymphocytes % % Monocytes % % Eosinophils % % Basophils % % Neutrophils # (1.3-7.7) k/uL Lymphocytes # (1.0-4.8) k/uL Monocytes # (0-1.0) k/uL Eosinophils # (0-0.7) k/uL Basophils # (0-0.2) k/uL Sodium (137-145) mmol/L Potassium (3.5-5.1) mmol/L Chloride (98-107) mmol/L Carbon Dioxide (22-30) mmol/L Anion Gap mmol/L BUN (7-17) mg/dL Creatinine (0.52-1.04) mg/dL Est GFR (CKD-EPI)AfAm (>60 ml/min/1.73 sqM) Est GFR (CKD-EPI)NonAf (>60 ml/min/1.73 sqM) Glucose (74-99) mg/dL Plasma Lactic Acid Brant 2.4 H* (0.7-2.0) mmol/L Calcium (8.4-10.2) mg/dL Total Bilirubin (0.2-1.3) mg/dL AST (14-36) U/L ALT (4-34) U/L Alkaline Phosphatase (38-126) U/L Total Protein (6.3-8.2) g/dL Albumin (3.5-5.0) g/dL Lipase (23-300) U/L Urine Color Urine Appearance (Clear) Urine pH (5.0-8.0) Ur Specific [place] (1.001-1.035) Urine Protein (Negative) Urine Glucose (UA) (Negative) Urine Ketones (Negative) Urine Blood (Negative) Urine Nitrite (Negative) Urine Bilirubin (Negative) Urine Urobilinogen (<2.0) mg/dL Ur Leukocyte Esterase (Negative) Urine RBC (0-5) /hpf Urine WBC (0-5) /hpf Ur Squamous Epith Cells (0-4) /hpf Urine Bacteria (None) /hpf Urine Mucus (None) /hpf Acetone, Qual (Negative) Disposition Clinical Impression: Flank pain, Chronic pain Disposition: HOME SELF-CARE Condition: Stable Instructions (If sedation given, give patient instructions): Flank Pain (ED) Additional Instructions: Follow-up with primary care provider tomorrow. Return to ER if any worsening symptoms. Follow up with urology tomorrow as well. Is patient prescribed a controlled substance at d/c from ED?: No Referrals: Melchor Stevens MD [Primary Care Provider] - 1-2 days
[2020-01-30 21:45] LABS: Basophils # (A) 0.1 k/uL (0-0.2); Basophils % (A) 1 %; Eosinophils # (A) 0.3 k/uL (0-0.7); Eosinophils % (A) 2 %; HCT 41.3 % (34.0-46.0); HGB 13.4 gm/dL (11.4-16.0); Lymphocytes # (A) 3.5 k/uL (1.0-4.8); Lymphocytes % (A) 33 %; MCH 28.5 pg (25.0-35.0); MCHC 32.3 g/dL (31.0-37.0); MCV 88.2 fL (80.0-100.0); Mean Platelet Volume 7.9; Monocytes # (A) 0.4 k/uL (0-1.0); Monocytes % (A) 4 %; Neutrophils # (A) 6.3 k/uL (1.3-7.7); Neutrophils % (A) 59 %; Platelet Count 253 k/uL (150-450); RBC 4.68 m/uL (3.80-5.40); RDW 12.6 % (11.5-15.5); WBC 10.7 k/uL (3.8-10.6)
[2020-01-30 21:55] LABS: ALT 41 U/L (4-34); AST 65 U/L (14-36); African American GFR (CKD) >90 (>60 ml/min/1.73 sqM); Albumin 4.1 g/dL (3.5-5.0); Alkaline Phosphatase 113 U/L (38-126); Anion Gap 9 mmol/L; Blood Urea Nitrogen 5 mg/dL (7-17); Calcium 9.5 mg/dL (8.4-10.2); Carbon Dioxide 20 mmol/L (22-30); Chloride 109 mmol/L (98-107); Glucose 213 mg/dL (74-99); Non-African American GFR(CKD) >90 (>60 ml/min/1.73 sqM); Potassium 3.6 mmol/L (3.5-5.1); Sodium 138 mmol/L (137-145); Total Bilirubin 0.5 mg/dL (0.2-1.3); Total Protein 6.6 g/dL (6.3-8.2)
[2020-01-30 22:04] LABS: Appearance,Urine Cloudy (Clear); Bacteria,Urine Rare /hpf; Bilirubin,Urine Negative (Negative); Blood,Urine Negative (Negative); Color,Urine Light Yellow; Glucose,Urine (UA) 1+ (Negative); Ketones,Urine Negative (Negative); Leukocyte Esterase,Urine Negative (Negative); Mucus,Urine Rare /hpf; Nitrite,Urine Negative (Negative); PH, Urine 6.5 (5.0-8.0); Protein,Urine Negative (Negative); RBC,Urine <1 /hpf (0-5); Specific Gravity,Urine 1.005 (1.001-1.035); Squamous Epithelial Cell,Urine 9 /hpf (0-4); Urobilinogen,Urine <2.0 mg/dL (<2.0); WBC,Urine 1 /hpf (0-5)
[2020-01-30] MEDS ORDERED: SODIUM CHLORIDE 0.9% 1,000 ML IV ONE (22:23)
[2020-01-30 22:37] VITALS: BP 104/70; PULSE 71; RESP 18
[2020-01-30] MEDS ORDERED: MORPHINE SULFATE 4 MG/ML SYRINGE IV STA (22:49)
== END 2020-01-30 23:43 | disposition home or self-care (01) ==
LOC: EC 20:51
DX: G89.29 Other chronic pain (principal); R10.9 Unspecified abdominal pain; R11.2 Nausea with vomiting, unspecified; D72.829 Elevated white blood cell count, unspecified; R74.0 Nonspecific elevation of levels of transaminase and lactic acid dehydrogenase [LDH]; F41.9 Anxiety disorder, unspecified; F31.9 Bipolar disorder, unspecified; F90.9 Attention-deficit hyperactivity disorder, unspecified type; F43.10 Post-traumatic stress disorder, unspecified; E11.9 Type 2 diabetes mellitus without complications; E78.5 Hyperlipidemia, unspecified; I10 Essential (primary) hypertension; F17.200 Nicotine dependence, unspecified, uncomplicated; Z87.19 Personal history of other diseases of the digestive system; Z79.4 Long term (current) use of insulin; Z88.0 Allergy status to penicillin; Z88.2 Allergy status to sulfonamides; Z91.018 Allergy to other foods; Z91.041 Radiographic dye allergy status; Z88.5 Allergy status to narcotic agent; Z88.8 Allergy status to other drugs, medicaments and biological substances; Z79.899 Other long term (current) drug therapy; Z90.49 Acquired absence of other specified parts of digestive tract; Z87.442 Personal history of urinary calculi
CPT/HCPCS: 99284; 96374; 96375 ×3; 96361 ×2; 36415; 80053; 82009; 83605; 83690; 85025; 81001; J2060; J2270; J2405; J1885

== ENCOUNTER 2020-02-02 13:28 | Emergency (ER) | payer OTHER ==
[2020-02-02 13:33] VITALS: TEMP 98.3
[2020-02-02 14:27] LABS: Glucose,Whole Blood 174 mg/dL (75-99)
[2020-02-02 14:34] LABS: Amorphous Sediment,Urine Rare /hpf; Appearance,Urine Cloudy (Clear); Bacteria,Urine Rare /hpf; Bilirubin,Urine Negative (Negative); Blood,Urine Large (Negative); Color,Urine Light Brown; Glucose,Urine (UA) Negative (Negative); Ketones,Urine Negative (Negative); Leukocyte Esterase,Urine Trace (Negative); Mucus,Urine Rare /hpf; Nitrite,Urine Negative (Negative); Protein,Urine Trace (Negative); RBC,Urine >182 /hpf (0-5); Specific Gravity,Urine 1.016 (1.001-1.035); Squamous Epithelial Cell,Urine 2 /hpf (0-4); Urobilinogen,Urine <2.0 mg/dL (<2.0); WBC,Urine 5 /hpf (0-5)
[2020-02-02] MEDS ORDERED: KETOROLAC 30 MG/ML 1 ML VIAL IM STA (14:37)
[2020-02-02 14:39] VITALS: BP 133/82; PULSE 83; RESP 18
--- NOTE | 2020-02-02 15:00 | ED ---
General Adult HPI - General Source: patient, RN notes reviewed Mode of arrival: ambulatory Limitations: no limitations <Brandon Macedo - Last Filed: 02/02/20 15:01> <Grazyna Nelson - Last Filed: 02/05/20 01:59> - General Chief complaint: Abdominal Pain Stated complaint: Kidney Stones Time Seen by Provider: 02/02/20 13:33 - History of Present Illness Initial comments: 44-year-old female with a past medical history of recurrent nephrolithiasis presents to the emergency department for a chief complaint of left flank pain. Patient states she passed a small kidney stone this morning and is still having pain. Patient reports she has been nauseous. Patient denies fevers today. Patient was seen here at 3 times previously in the past week and had blood work twice.Patient has no other complaints at this time including shortness of breath, chest pain, abdominal pain, headache, or visual changes. (Brandon Macedo) - Related Data Home Medications Medication Instructions Recorded Confirmed oxyCODONE-APAP 10-325MG [Percocet 1 tab PO QID PRN 08/29/17 01/26/20 10-325 mg] OXcarbazepine [Trileptal] 300 mg PO BID 02/05/18 01/26/20 Mirtazapine [Remeron] 15 mg PO HS 03/12/18 01/26/20 PARoxetine HCL [Paxil] 40 mg PO DAILY 03/12/18 01/26/20 Topiramate [Topamax] 100 mg PO BID 03/12/18 01/26/20 PARoxetine [Paxil] 20 mg PO DAILY 06/04/18 01/26/20 Atorvastatin [Lipitor] 40 mg PO DAILY 07/16/19 01/26/20 Loratadine [Claritin] 10 mg PO DAILY 07/16/19 01/26/20 metFORMIN HCL 1,000 mg PO BID 07/16/19 01/26/20 ARIPiprazole [Abilify] 5 mg PO HS 01/26/20 01/26/20 Insulin Glargine,Hum.rec.anlog 20 unit SQ HS 01/26/20 01/26/20 [Basaglar Kwikpen U-100] Ondansetron Odt [Zofran Odt] 4 mg PO Q6H PRN 01/26/20 01/26/20 Short Acting Insulin Pen(Unknown) 6 units SQ AC-TID 01/26/20 01/26/20 lisinopriL [Zestril] 10 mg PO DAILY 01/26/20 01/26/20 Previous Rx's Medication Instructions Recorded SUMAtriptan succinate [Imitrex] 100 mg PO DAILY PRN tab 08/02/17 Allergies Allergy/AdvReac Type Severity Reaction Status Date / Time bupropion HCl Allergy Rash/Hives Verified 02/02/20 13:33 [From Wellbutrin] divalproex sodium Allergy Unknown Verified 02/02/20 13:33 [From Depakote] fentanyl Allergy Swelling Verified 02/02/20 13:33 Iodinated Contrast Media Allergy Anaphylaxis Verified 02/02/20 13:33 [Iodinated Contrast Media - IV Dye] orange juice [[place]] Allergy Rash/Hives Verified 02/02/20 13:33 Sulfa (Sulfonamide Allergy Rash/Hives Verified 02/02/20 13:33 Antibiotics) Penicillins AdvReac Nausea & Verified 02/02/20 13:33 Vomiting Review of Systems ROS Other: All systems not noted in ROS Statement are negative. <Brandon Macedo - Last Filed: 02/02/20 15:01> ROS Other: All systems not noted in ROS Statement are negative. <Grazyna Nelson - Last Filed: 02/05/20 01:59> ROS Statement: Those systems with pertinent positive or pertinent negative responses have been documented in the HPI. 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 History of Any Multi-Drug Resistant Organisms: ESBL Date of last positivie culture/infection: 05/14/17 MDRO Source:: ESBL URINE, Past Surgical History: Bladder Surgery, Section, Cholecystectomy, Hysterectomy, Orthopedic Surgery, Tubal Ligation Additional Past Surgical History / Comment(s): R ovarian cystectomy, laparoscopic surgery for L ovary that had attached to the bowel, D&C, numerous lithotripsies, nephroscopies, cystoscopies and stents to ureters-none in place at this time, L robotic pyeloplasty with post op infection around kidney which then required a picc line/later removed (pt states was not MRSA), L rotator cuff repair, L wrist tendon surgery, colonoscopy Past Anesthesia/Blood Transfusion Reactions: Family History of Problems w/ Anesthesia Additional Past Anesthesia/Blood Transfusion Reaction / Comment(s): dad-hard time waking up due to enzyme problems in liver Past Psychological History: ADD/ADHD, Anxiety, Bipolar, Depression, PTSD Smoking Status: Current every day smoker Past Alcohol Use History: None Reported Past Drug Use History: None Reported - Past Family History Brother(s) Family Medical History: Cancer Additional Family Medical History / Comment(s): testicular Father Family Medical History: Coronary Artery Disease (CAD), CVA/TIA, Diabetes Mellitus, Renal Disease Additional Family Medical History / Comment(s): GLAUCOMA,NEUROPATHY HAD TRIPLE CABG, at 56yrs from renal disease. Mother Family Medical History: Hyperlipidemia Additional Family Medical History / Comment(s): DDD, HAD 3 vessel CABG AGE 54. <Brandon Macedo P - Last Filed: 02/02/20 15:01> General Exam Limitations: no limitations General appearance: alert, in no apparent distress Head exam: Present: atraumatic, normocephalic, normal inspection Eye exam: Present: normal appearance, PERRL, EOMI. Absent: scleral icterus, conjunctival injection, periorbital swelling ENT exam: Present: normal exam, mucous membranes moist Neck exam: Present: normal inspection, full ROM. Absent: tenderness, meningismus, lymphadenopathy Respiratory exam: Present: normal lung sounds bilaterally. Absent: respiratory distress, wheezes, rales, rhonchi, stridor Cardiovascular Exam: Present: regular rate, normal rhythm, normal heart sounds. Absent: systolic murmur, diastolic murmur, rubs, gallop, clicks GI/Abdominal exam: Present: soft, normal bowel sounds. Absent: distended, tenderness, guarding, rebound, rigid Back exam: Present: CVA tenderness (L). Absent: CVA tenderness (R) <Brandon Macedo P - Last Filed: 02/02/20 15:01> Course Vital Signs 02/02/20 02/02/20 02/02/20 13:30 14:39 15:01 Temperature 98.3 F 98.3 F Pulse Rate 117 H 83 83 Respiratory 20 18 18 Rate Blood Pressure 127/81 133/82 133/82 O2 Sat by Pulse 98 96 96 Oximetry Medical Decision Making <Brandon Macedo - Last Filed: 02/02/20 15:01> <Grazyna Nelson - Last Filed: 02/05/20 01:59> - Medical Decision Making Patient initially tachycardic however on reevaluation has a normal heart rate of 83. Patient does not have any vomiting in the emergency room. Laboratory evaluation from 3 days ago was reviewed which was unremarkable. Urinalysis was performed today which showed red blood cells without evidence of infection. Blood glucose is 174. Patient was given IM Toradol. She was not given opioid medication given she often requests this and is seen for pain very frequently. No vomiting here in the emergency room. Patient will be discharged home to [facility] with primary care. (Brandon Macedo) I was available for consultation in the emergency department. The history and physical exam were done by the midlevel provider. I was consulted for this patients care. I reviewed the case with the midlevel provider and based on their presentation of the patient, I agree with the assessment, medical decision making and plan of care as documented. Chart was dictated using One Touch EMR dictation software. Attempts were made to correct any dictation errors however some typographical errors may persist. Patient was seen during a national state of emergency due to the Covid-19 pandemic. 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 ID Lily Rhodes Urine Color Light Brown Urine Appearance Cloudy H (Clear) Urine pH 7.0 (5.0-8.0) Ur Specific [place] 1.016 (1.001-1.035) Urine Protein Trace H (Negative) Urine Glucose (UA) Negative (Negative) Urine Ketones Negative (Negative) Urine Blood Large H (Negative) Urine Nitrite Negative (Negative) Urine Bilirubin Negative (Negative) Urine Urobilinogen <2.0 (<2.0) mg/dL Ur Leukocyte Esterase Trace H (Negative) Urine RBC >182 H (0-5) /hpf Urine WBC 5 (0-5) /hpf Ur Squamous Epith Cells 2 (0-4) /hpf Amorphous Sediment Rare H (None) /hpf Urine Bacteria Rare H (None) /hpf Urine Mucus Rare H (None) /hpf Disposition Is patient prescribed a controlled substance at d/c from ED?: No Time of Disposition: 15:00 <Brandon Macedo - Last Filed: 02/02/20 15:01> <Grazyna Nelson - Last Filed: 02/05/20 01:59> Clinical Impression: Flank pain Disposition: HOME SELF-CARE Condition: Good Instructions (If sedation given, give patient instructions): Abdominal Pain (ED) Additional Instructions: continue your home medications as needed. Follow-up with your doctor in one to 2 days. Return to the emergency room for any worsening symptoms. Referrals: Melchor Stevens MD [Primary Care Provider] - 1-2 days
== END 2020-02-02 15:03 | disposition home or self-care (01) ==
LOC: EC 13:28
DX: R10.9 Unspecified abdominal pain (principal); R11.0 Nausea; R00.0 Tachycardia, unspecified; E11.9 Type 2 diabetes mellitus without complications; I10 Essential (primary) hypertension; E78.5 Hyperlipidemia, unspecified; F41.9 Anxiety disorder, unspecified; F31.9 Bipolar disorder, unspecified; F17.200 Nicotine dependence, unspecified, uncomplicated; Z79.84 Long term (current) use of oral hypoglycemic drugs; Z79.899 Other long term (current) drug therapy; Z88.8 Allergy status to other drugs, medicaments and biological substances; Z91.041 Radiographic dye allergy status; Z88.0 Allergy status to penicillin; Z88.2 Allergy status to sulfonamides; Z88.5 Allergy status to narcotic agent; Z90.49 Acquired absence of other specified parts of digestive tract; Z90.710 Acquired absence of both cervix and uterus
CPT/HCPCS: 36415; 81001; 99284; 96372; J1885

== ENCOUNTER 2020-02-09 20:29 | Emergency (ER) | payer OTHER ==
[2020-02-09] MEDS ORDERED: KETOROLAC 15 MG/ML 1 ML VIAL IM STA (20:48)
[2020-02-09] MEDS ORDERED: ONDANSETRON 4 MG/2 ML VIAL IM STA (20:48)
--- NOTE | 2020-02-09 21:05 | ED ---
General Adult HPI - General Chief complaint: Abdominal Pain Stated complaint: Kidney Stone Time Seen by Provider: 02/09/20 20:40 Source: patient, RN notes reviewed Mode of arrival: ambulatory Limitations: no limitations - History of Present Illness Initial comments: Patient is a 44-year-old female with a past medical history of type 2 diabetes mellitus, hyperlipidemia, hypertension, GERD, kidney stones well known to this emergency department for similar complaints who presents for a chief complaint of "kidney pain." Patient states she has a kidney stone. States it is causing her pain. States that his been ongoing for a week. States she is trying to see a trimmer and reinforcer in [place] but cannot get in until February. Patient has been nauseous as well. She denies fevers.Patient has no other complaints at this time including shortness of breath, chest pain, abdominal pain, nausea or vomiting, headache, or visual changes. - Related Data Home Medications Medication Instructions Recorded Confirmed oxyCODONE-APAP 10-325MG [Percocet 1 tab PO Q6H PRN 08/29/17 02/09/20 10-325 mg] PARoxetine HCL [Paxil] 40 mg PO DAILY 03/12/18 02/09/20 Topiramate [Topamax] 100 mg PO BID 03/12/18 02/09/20 PARoxetine [Paxil] 20 mg PO DAILY 06/04/18 02/09/20 Atorvastatin [Lipitor] 40 mg PO DAILY 07/16/19 02/09/20 Loratadine [Claritin] 10 mg PO DAILY 07/16/19 02/09/20 Insulin Glargine,Hum.rec.anlog 20 unit SQ HS 01/26/20 02/09/20 [Basaglar Kwikpen U-100] Ondansetron Odt [Zofran Odt] 4 mg PO Q8H PRN 01/26/20 02/09/20 lisinopriL [Zestril] 10 mg PO DAILY 01/26/20 02/09/20 INSULIN ASPART (NovoLOG) [NovoLOG 13 unit SQ AC-TID 02/09/20 02/09/20 (formulary)] Montelukast [Singulair] 10 mg PO DAILY 02/09/20 02/09/20 Tamsulosin HCl [Flomax] 0.4 mg PO DAILY 02/09/20 02/09/20 Previous Rx's Medication Instructions Recorded SUMAtriptan succinate [Imitrex] 100 mg PO DAILY PRN tab 08/02/17 Allergies Allergy/AdvReac Type Severity Reaction Status Date / Time bupropion HCl Allergy Rash/Hives Verified 02/09/20 21:22 [From Wellbutrin] divalproex sodium Allergy Unknown Verified 02/09/20 21:22 [From Depakote] fentanyl Allergy Swelling Verified 02/09/20 21:22 Iodinated Contrast Media Allergy Anaphylaxis Verified 02/09/20 21:22 [Iodinated Contrast Media - IV Dye] orange juice [[place]] Allergy Rash/Hives Verified 02/09/20 21:22 Sulfa (Sulfonamide Allergy Rash/Hives Verified 02/09/20 21:22 Antibiotics) Penicillins AdvReac Nausea & Verified 02/09/20 21:22 Vomiting Review of Systems ROS Statement: Those systems with pertinent positive or pertinent negative responses have been documented in the HPI. ROS Other: All systems not noted in ROS Statement are negative. 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 History of Any Multi-Drug Resistant Organisms: ESBL Date of last positivie culture/infection: 05/14/17 MDRO Source:: ESBL URINE, Past Surgical History: Bladder Surgery, Section, Cholecystectomy, Hysterectomy, Orthopedic Surgery, Tubal Ligation Additional Past Surgical History / Comment(s): R ovarian cystectomy, laparoscopic surgery for L ovary that had attached to the bowel, D&C, numerous lithotripsies, nephroscopies, cystoscopies and stents to ureters-none in place at this time, L robotic pyeloplasty with post op infection around kidney which then required a picc line/later removed (pt states was not MRSA), L rotator cuff repair, L wrist tendon surgery, colonoscopy Past Anesthesia/Blood Transfusion Reactions: Family History of Problems w/ Anesthesia Additional Past Anesthesia/Blood Transfusion Reaction / Comment(s): dad-hard time waking up due to enzyme problems in liver Past Psychological History: ADD/ADHD, Anxiety, Bipolar, Depression, PTSD Smoking Status: Current every day smoker Past Alcohol Use History: None Reported Past Drug Use History: None Reported - Past Family History Brother(s) Family Medical History: Cancer Additional Family Medical History / Comment(s): testicular Father Family Medical History: Coronary Artery Disease (CAD), CVA/TIA, Diabetes Mellitus, Renal Disease Additional Family Medical History / Comment(s): GLAUCOMA,NEUROPATHY HAD TRIPLE CABG, at 56yrs from renal disease. Mother Family Medical History: Hyperlipidemia Additional Family Medical History / Comment(s): DDD, HAD 3 vessel CABG AGE 54. General Exam Limitations: no limitations General appearance: alert, in no apparent distress Head exam: Present: atraumatic, normocephalic, normal inspection Eye exam: Present: normal appearance, PERRL, EOMI. Absent: scleral icterus, conjunctival injection, periorbital swelling ENT exam: Present: normal exam, mucous membranes moist Neck exam: Present: normal inspection, full ROM. Absent: tenderness, meningismus, lymphadenopathy Respiratory exam: Present: normal lung sounds bilaterally. Absent: respiratory distress, wheezes, rales, rhonchi, stridor Cardiovascular Exam: Present: regular rate, normal rhythm, normal heart sounds. Absent: systolic murmur, diastolic murmur, rubs, gallop, clicks GI/Abdominal exam: Present: soft, normal bowel sounds. Absent: distended, tenderness, guarding, rebound, rigid Neurological exam: Present: alert Course Vital Signs 02/09/20 02/09/20 20:35 21:34 Temperature 98.0 F Pulse Rate 99 Respiratory 18 16 Rate Blood Pressure 120/80 O2 Sat by Pulse 97 Oximetry Medical Decision Making - Medical Decision Making vitals are stable. Urinalysis does show hematuria. CBC CMP unremarkable. Patient did have a computed tomography scan on 01/25/2020 which showed unchanged left hydronephrosis without evidence of stone. Patient was given IV Toradol and Zofran. patient was also seen and evaluated by Dr. Bishop. At this time patient will be discharged after oral Nova. She will follow-up with her urologist and return for any worsening symptoms. - Lab Data Result diagrams: 02/09/20 21:24 08/17/20 21:24 Lab Results 02/09/20 02/09/20 02/09/20 Range/Units 20:47 21:24 21:24 WBC 9.4 (3.8-10.6) k/uL RBC 4.67 (3.80-5.40) m/uL Hgb 13.3 (11.4-16.0) gm/dL Hct 42.1 (34.0-46.0) % MCV 90.3 (80.0-100.0) fL MCH 28.5 (25.0-35.0) pg MCHC 31.5 (31.0-37.0) g/dL RDW 12.7 (11.5-15.5) % Plt Count 239 (150-450) k/uL Neutrophils % 53 % Lymphocytes % 38 % Monocytes % 4 % Eosinophils % 3 % Basophils % 1 % Neutrophils # 5.0 (1.3-7.7) k/uL Lymphocytes # 3.6 (1.0-4.8) k/uL Monocytes # 0.4 (0-1.0) k/uL Eosinophils # 0.3 (0-0.7) k/uL Basophils # 0.1 (0-0.2) k/uL Sodium 135 L (137-145) mmol/L Potassium 4.0 (3.5-5.1) mmol/L Chloride 105 (98-107) mmol/L Carbon Dioxide 20 L (22-30) mmol/L Anion Gap 10 mmol/L BUN 8 (7-17) mg/dL Creatinine 0.57 (0.52-1.04) mg/dL Est GFR (CKD-EPI)AfAm >90 (>60 ml/min/1.73 sqM) Est GFR (CKD-EPI)NonAf >90 (>60 ml/min/1.73 sqM) Glucose 394 H (74-99) mg/dL Calcium 9.2 (8.4-10.2) mg/dL Total Bilirubin 0.3 (0.2-1.3) mg/dL AST 49 H (14-36) U/L ALT 42 H (4-34) U/L Alkaline Phosphatase 106 (38-126) U/L Total Protein 6.9 (6.3-8.2) g/dL Albumin 4.2 (3.5-5.0) g/dL Urine Color [place] Urine Appearance Cloudy H (Clear) Urine pH 6.0 (5.0-8.0) Ur Specific [place] 1.010 (1.001-1.035) Urine Protein 1+ H (Negative) Urine Glucose (UA) 3+ H (Negative) Urine Ketones Negative (Negative) Urine Blood Large (Negative) Urine Nitrite Negative (Negative) Urine Bilirubin Negative (Negative) Urine Urobilinogen <2.0 (<2.0) mg/dL Ur Leukocyte Esterase Negative (Negative) Urine RBC >182 H (0-5) /hpf Urine WBC 1 (0-5) /hpf Ur Squamous Epith Cells 16 H (0-4) /hpf Disposition Clinical Impression: Chronic pain, Flank pain, Hematuria Disposition: HOME SELF-CARE Condition: Good Instructions (If sedation given, give patient instructions): Flank Pain (ED) Additional Instructions: please take Motrin and Tylenol for pain. Please follow-up with your doctor in one to 2 days. Return to the emergency room for any worsening symptoms. Is patient prescribed a controlled substance at d/c from ED?: No Referrals: Melchor Stevens MD [Primary Care Provider] - 1-2 days Time of Disposition: 21:32
[2020-02-09 21:15] LABS: RBC,Urine >182 /hpf (0-5); Squamous Epithelial Cell,Urine 16 /hpf (0-4); WBC,Urine 1 /hpf (0-5)
[2020-02-09 21:18] LABS: Appearance,Urine Cloudy (Clear); Color,Urine Amber
[2020-02-09 21:19] LABS: Bilirubin,Urine Negative (Negative); Blood,Urine Large (Negative); Glucose,Urine (UA) 3+ (Negative); Ketones,Urine Negative (Negative); Leukocyte Esterase,Urine Negative (Negative); Nitrite,Urine Negative (Negative); Protein,Urine 1+ (Negative); Urobilinogen,Urine <2.0 mg/dL (<2.0)
[2020-02-09] MEDS ORDERED: SODIUM CHLORIDE 0.9% 1,000 ML IV STA (21:22)
[2020-02-09] MEDS ORDERED: KETOROLAC 15 MG/ML 1 ML VIAL IVP STA (21:27)
[2020-02-09] MEDS ORDERED: ONDANSETRON 4 MG/2 ML VIAL IVP STA (21:28)
[2020-02-09 21:31] LABS: Basophils # (A) 0.1 k/uL (0-0.2); Basophils % (A) 1 %; Eosinophils # (A) 0.3 k/uL (0-0.7); Eosinophils % (A) 3 %; HCT 42.1 % (34.0-46.0); HGB 13.3 gm/dL (11.4-16.0); Lymphocytes # (A) 3.6 k/uL (1.0-4.8); Lymphocytes % (A) 38 %; MCH 28.5 pg (25.0-35.0); MCHC 31.5 g/dL (31.0-37.0); MCV 90.3 fL (80.0-100.0); Mean Platelet Volume 7.6; Monocytes # (A) 0.4 k/uL (0-1.0); Monocytes % (A) 4 %; Neutrophils % (A) 53 %; Platelet Count 239 k/uL (150-450); RBC 4.67 m/uL (3.80-5.40); RDW 12.7 % (11.5-15.5); WBC 9.4 k/uL (3.8-10.6)
[2020-02-09 21:36] VITALS: RESP 16
[2020-02-09 21:44] LABS: ALT 42 U/L (4-34); AST 49 U/L (14-36); African American GFR (CKD) >90 (>60 ml/min/1.73 sqM); Albumin 4.2 g/dL (3.5-5.0); Alkaline Phosphatase 106 U/L (38-126); Anion Gap 10 mmol/L; Blood Urea Nitrogen 8 mg/dL (7-17); Calcium 9.2 mg/dL (8.4-10.2); Carbon Dioxide 20 mmol/L (22-30); Chloride 105 mmol/L (98-107); Glucose 394 mg/dL (74-99); Non-African American GFR(CKD) >90 (>60 ml/min/1.73 sqM); Sodium 135 mmol/L (137-145); Total Bilirubin 0.3 mg/dL (0.2-1.3); Total Protein 6.9 g/dL (6.3-8.2)
[2020-02-09] MEDS ORDERED: INSULIN REGULAR 100 UNIT/ML VIAL IV ONE (21:52)
[2020-02-09] MEDS ORDERED: HYDROcodone/APAP 5-325MG 1 EACH TAB PO STA (22:04)
[2020-02-09 22:45] VITALS: BP 127/65; PULSE 89; TEMP 98.4
== END 2020-02-09 22:30 | disposition home or self-care (01) ==
LOC: EC 20:29
DX: G89.29 Other chronic pain (principal); R10.9 Unspecified abdominal pain; R31.9 Hematuria, unspecified; N13.30 Unspecified hydronephrosis; E78.5 Hyperlipidemia, unspecified; I10 Essential (primary) hypertension; E11.9 Type 2 diabetes mellitus without complications; F31.9 Bipolar disorder, unspecified; F41.9 Anxiety disorder, unspecified; F17.200 Nicotine dependence, unspecified, uncomplicated; Z79.4 Long term (current) use of insulin; Z79.899 Other long term (current) drug therapy; Z79.51 Long term (current) use of inhaled steroids; Z88.8 Allergy status to other drugs, medicaments and biological substances; Z91.041 Radiographic dye allergy status; Z88.0 Allergy status to penicillin; Z88.2 Allergy status to sulfonamides; Z91.018 Allergy to other foods; Z88.5 Allergy status to narcotic agent; Z90.49 Acquired absence of other specified parts of digestive tract; Z90.710 Acquired absence of both cervix and uterus
CPT/HCPCS: 36415; 80053; 85025; 81001; 99284; 96374; 96375; 96361; J2405; J1885

== ENCOUNTER 2020-02-25 22:44 | Emergency (ER) | payer OTHER ==
[2020-02-25 22:49] VITALS: BP 118/84; PULSE 78; RESP 18; TEMP 97.9
[2020-02-25] MEDS ORDERED: KETOROLAC 15 MG/ML 1 ML VIAL IM STA (23:24)
--- NOTE | 2020-02-25 23:27 | ED ---
General Adult HPI - General Chief complaint: Abdominal Pain Stated complaint: Kidney Stones Time Seen by Provider: 02/25/20 22:57 Source: patient Mode of arrival: ambulatory Limitations: no limitations - History of Present Illness Initial comments: Leilani is a 44-year-old female who presents the ER today for reevaluation of chronic left-sided flank pain. Patient reports a history of chronic kidney stone she does have confirmed chronic hydronephrosis on the left with recurrent hematuria of uncertain etiology. Patient reports that she passed 2 small stones today. She states she did see her primary care physician today Dr. Rizvi for management of her diabetes. While in office she received a shot of Toradol and Zofran. Patient reports a home she's been taking her Flomax, Percocet and oral Toradol. She comes ER today requesting additional pain management. Patient again states that she scheduled to see [facility] [place] of urology she states her appointment is tomorrow. - Related Data Home Medications Medication Instructions Recorded Confirmed oxyCODONE-APAP 10-325MG [Percocet 1 tab PO Q6H PRN 08/29/17 02/09/20 10-325 mg] PARoxetine HCL [Paxil] 40 mg PO DAILY 03/12/18 02/09/20 Topiramate [Topamax] 100 mg PO BID 03/12/18 02/09/20 PARoxetine [Paxil] 20 mg PO DAILY 06/04/18 02/09/20 Atorvastatin [Lipitor] 40 mg PO DAILY 07/16/19 02/09/20 Loratadine [Claritin] 10 mg PO DAILY 07/16/19 02/09/20 Insulin Glargine,Hum.rec.anlog 20 unit SQ HS 01/26/20 02/09/20 [Basaglar Kwikpen U-100] Ondansetron Odt [Zofran Odt] 4 mg PO Q8H PRN 01/26/20 02/09/20 lisinopriL [Zestril] 10 mg PO DAILY 01/26/20 02/09/20 INSULIN ASPART (NovoLOG) [NovoLOG 13 unit SQ AC-TID 02/09/20 02/09/20 (formulary)] Montelukast [Singulair] 10 mg PO DAILY 02/09/20 02/09/20 Tamsulosin HCl [Flomax] 0.4 mg PO DAILY 02/09/20 02/09/20 Previous Rx's Medication Instructions Recorded SUMAtriptan succinate [Imitrex] 100 mg PO DAILY PRN tab 08/02/17 Allergies Allergy/AdvReac Type Severity Reaction Status Date / Time bupropion HCl Allergy Rash/Hives Verified 02/25/20 22:49 [From Wellbutrin] divalproex sodium Allergy Unknown Verified 02/25/20 22:49 [From Depakote] fentanyl Allergy Swelling Verified 02/25/20 22:49 Iodinated Contrast Media Allergy Anaphylaxis Verified 02/25/20 22:49 [Iodinated Contrast Media - IV Dye] orange juice [Falls] Allergy Rash/Hives Verified 02/25/20 22:49 Sulfa (Sulfonamide Allergy Rash/Hives Verified 02/25/20 22:49 Antibiotics) Penicillins AdvReac Nausea & Verified 02/25/20 22:49 Vomiting Review of Systems ROS Statement: Those systems with pertinent positive or pertinent negative responses have been documented in the HPI. ROS Other: All systems not noted in ROS Statement are negative. 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 History of Any Multi-Drug Resistant Organisms: ESBL Date of last positivie culture/infection: 05/14/17 MDRO Source:: ESBL URINE, Past Surgical History: Bladder Surgery, Section, Cholecystectomy, Hysterectomy, Orthopedic Surgery, Tubal Ligation Additional Past Surgical History / Comment(s): R ovarian cystectomy, laparoscopic surgery for L ovary that had attached to the bowel, D&C, numerous lithotripsies, nephroscopies, cystoscopies and stents to ureters-none in place at this time, L robotic pyeloplasty with post op infection around kidney which then required a picc line/later removed (pt states was not MRSA), L rotator cuff repair, L wrist tendon surgery, colonoscopy Past Anesthesia/Blood Transfusion Reactions: Family History of Problems w/ Anesthesia Additional Past Anesthesia/Blood Transfusion Reaction / Comment(s): dad-hard time waking up due to enzyme problems in liver Past Psychological History: ADD/ADHD, Anxiety, Bipolar, Depression, PTSD Smoking Status: Current every day smoker Past Alcohol Use History: None Reported Past Drug Use History: None Reported - Past Family History Brother(s) Family Medical History: Cancer Additional Family Medical History / Comment(s): testicular Father Family Medical History: Coronary Artery Disease (CAD), CVA/TIA, Diabetes Mellitus, Renal Disease Additional Family Medical History / Comment(s): GLAUCOMA,NEUROPATHY HAD TRIPLE CABG, at 56yrs from renal disease. Mother Family Medical History: Hyperlipidemia Additional Family Medical History / Comment(s): DDD, HAD 3 vessel CABG AGE 54. General Exam - General Exam Comments Initial Comments: Physical Exam GENERAL: Patient is well-developed and well-nourished. Patient is nontoxic and well-hydrated and is in no distress. HENT: Normocephalic, Atraumatic. EYES: PERRL, EOMI PULMONARY: Unlabored respirations. CARDIOVASCULAR: RRR Warm and well perfused extremities ABDOMEN: Soft, no tenderness to palpation Non-distended SKIN: No rashes or bruising : Deferred NEUROLOGIC: Alert and oriented Normal speech Normal gait MUSCULOSKELETAL: Moving all extremities with no apparent injury PSYCHIATRIC: No SI/HI Limitations: no limitations Course Vital Signs 02/25/20 22:45 Temperature 97.9 F Pulse Rate 78 Respiratory 18 Rate Blood Pressure 118/84 O2 Sat by Pulse 99 Oximetry Medical Decision Making - Medical Decision Making Patient was seen and evaluated, history is obtained from the patient who is very well-known to the ER for her frequent visits requesting pain medication for kidney stones despite having a computed tomography scan with no kidney stones last month. Patient repeatedly claims that she is going to see a new urologist but has not followed up. On exam the patient is resting comfortably with her eyes closed in bed. Vital signs are normal. She is in no distress. I advised patient I will not treat her with narcotic pain medication but we'll give her an additional dose of Toradol, patient does have oral narcotics at home, she does appear sleepy and I do believe she is taking her oral narcotics prior to arrival Patient received Toradol and will be discharged home to follow up with urology as scheduled tomorrow per her report. - Lab Data Lab Results 02/25/20 Range/Units 23:16 Urine Color Yellow Urine Appearance Cloudy H (Clear) Urine pH 6.0 (5.0-8.0) Ur Specific [place] 1.013 (1.001-1.035) Urine Protein Trace H (Negative) Urine Glucose (UA) 2+ H (Negative) Urine Ketones Negative (Negative) Urine Blood Large H (Negative) Urine Nitrite Negative (Negative) Urine Bilirubin Negative (Negative) Urine Urobilinogen <2.0 (<2.0) mg/dL Ur Leukocyte Esterase Large H (Negative) Urine RBC >182 H (0-5) /hpf Urine WBC >182 H (0-5) /hpf Ur Squamous Epith Cells 7 H (0-4) /hpf Urine Bacteria Few H (None) /hpf Urine Mucus Rare H (None) /hpf Disposition Clinical Impression: Chronic flank pain, Drug-seeking behavior Disposition: HOME SELF-CARE Condition: Stable Additional Instructions: As we discussed you need to continue your home medication regimen, follow with the urologist that [facility] tomorrow as scheduled If you have persistent pain despite following with urology I would recommend you discussed with her primary care doctor referral to pain management Is patient prescribed a controlled substance at d/c from ED?: No Referrals: Melchor Stevens MD [Primary Care Provider] - 1-2 days
[2020-02-25 23:44] LABS: Appearance,Urine Cloudy (Clear); Bacteria,Urine Few /hpf; Bilirubin,Urine Negative (Negative); Blood,Urine Large (Negative); Color,Urine Yellow; Glucose,Urine (UA) 2+ (Negative); Ketones,Urine Negative (Negative); Leukocyte Esterase,Urine Large (Negative); Mucus,Urine Rare /hpf; Nitrite,Urine Negative (Negative); Protein,Urine Trace (Negative); RBC,Urine >182 /hpf (0-5); Specific Gravity,Urine 1.013 (1.001-1.035); Squamous Epithelial Cell,Urine 7 /hpf (0-4); Urobilinogen,Urine <2.0 mg/dL (<2.0); WBC,Urine >182 /hpf (0-5)
== END 2020-02-26 00:47 | disposition home or self-care (01) ==
LOC: EC 22:44
DX: G89.29 Other chronic pain (principal); Z76.5 Malingerer [conscious simulation]; R10.9 Unspecified abdominal pain; E11.9 Type 2 diabetes mellitus without complications; K21.9 Gastro-esophageal reflux disease without esophagitis; E78.5 Hyperlipidemia, unspecified; I10 Essential (primary) hypertension; E28.2 Polycystic ovarian syndrome; F32.9 Major depressive disorder, single episode, unspecified; F41.9 Anxiety disorder, unspecified; F90.9 Attention-deficit hyperactivity disorder, unspecified type; Z87.442 Personal history of urinary calculi; F17.200 Nicotine dependence, unspecified, uncomplicated; Z88.0 Allergy status to penicillin; Z88.2 Allergy status to sulfonamides; Z91.018 Allergy to other foods; Z88.5 Allergy status to narcotic agent; Z91.041 Radiographic dye allergy status; Z88.8 Allergy status to other drugs, medicaments and biological substances; Z79.4 Long term (current) use of insulin; Z79.899 Other long term (current) drug therapy; Z90.49 Acquired absence of other specified parts of digestive tract; Z98.890 Other specified postprocedural states
CPT/HCPCS: 81001; 87086; 96372; 99284; J1885

== ENCOUNTER 2020-03-03 16:36 | Emergency (ER) | payer OTHER ==
[2020-03-03 16:45] VITALS: TEMP 98
--- NOTE | 2020-03-03 17:25 | ED ---
Female Urogenital HPI - General Chief complaint: Urogenital Stated complaint: poss kidney stones/UTI Time Seen by Provider: 03/03/20 16:57 Source: patient, RN notes reviewed, old records reviewed Mode of arrival: ambulatory Limitations: no limitations - History of Present Illness Initial comments: This is a 44-year-old female DF she presents today for evaluation regards to flank pain history of chronic flank pain chronic kidney stones does have surgery the next few days. Patient with difficulty keeping down medications. At this time patient has no fevers, states she may have difficulty keeping down her medication, on Cipro for antibiotic at home MD Complaint: dysuria, other (Flank pain) -: days(s) Radiation: L flank, R flank Severity: severe Severity scale (1-10): 8 Consistency: constant (Taking antibiotics for recent UTI) Worsens with: none Patient : No Associated Symptoms: denies other symptoms - Related Data Home Medications Medication Instructions Recorded Confirmed oxyCODONE-APAP 10-325MG [Percocet 1 tab PO Q6H PRN 08/29/17 02/09/20 10-325 mg] PARoxetine HCL [Paxil] 40 mg PO DAILY 03/12/18 02/09/20 Topiramate [Topamax] 100 mg PO BID 03/12/18 02/09/20 PARoxetine [Paxil] 20 mg PO DAILY 06/04/18 02/09/20 Atorvastatin [Lipitor] 40 mg PO DAILY 07/16/19 02/09/20 Loratadine [Claritin] 10 mg PO DAILY 07/16/19 02/09/20 Insulin Glargine,Hum.rec.anlog 20 unit SQ HS 01/26/20 02/09/20 [Basaglar Kwikpen U-100] Ondansetron Odt [Zofran Odt] 4 mg PO Q8H PRN 01/26/20 02/09/20 lisinopriL [Zestril] 10 mg PO DAILY 01/26/20 02/09/20 INSULIN ASPART (NovoLOG) [NovoLOG 13 unit SQ AC-TID 02/09/20 02/09/20 (formulary)] Montelukast [Singulair] 10 mg PO DAILY 02/09/20 02/09/20 Tamsulosin HCl [Flomax] 0.4 mg PO DAILY 02/09/20 02/09/20 Previous Rx's Medication Instructions Recorded SUMAtriptan succinate [Imitrex] 100 mg PO DAILY PRN tab 08/02/17 Allergies Allergy/AdvReac Type Severity Reaction Status Date / Time bupropion HCl Allergy Rash/Hives Verified 02/25/20 22:49 [From Wellbutrin] divalproex sodium Allergy Unknown Verified 02/25/20 22:49 [From Depakote] fentanyl Allergy Swelling Verified 02/25/20 22:49 Iodinated Contrast Media Allergy Anaphylaxis Verified 02/25/20 22:49 [Iodinated Contrast Media - IV Dye] orange juice [[place]] Allergy Rash/Hives Verified 02/25/20 22:49 Sulfa (Sulfonamide Allergy Rash/Hives Verified 02/25/20 22:49 Antibiotics) Penicillins AdvReac Nausea & Verified 02/25/20 22:49 Vomiting Review of Systems ROS Statement: Those systems with pertinent positive or pertinent negative responses have been documented in the HPI. ROS Other: All systems not noted in ROS Statement are negative. 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 History of Any Multi-Drug Resistant Organisms: ESBL Date of last positivie culture/infection: 05/14/17 MDRO Source:: ESBL URINE, Past Surgical History: Bladder Surgery, Section, Cholecystectomy, Hysterectomy, Orthopedic Surgery, Tubal Ligation Additional Past Surgical History / Comment(s): R ovarian cystectomy, laparoscopic surgery for L ovary that had attached to the bowel, D&C, numerous lithotripsies, nephroscopies, cystoscopies and stents to ureters-none in place at this time, L robotic pyeloplasty with post op infection around kidney which then required a picc line/later removed (pt states was not MRSA), L rotator cuff repair, L wrist tendon surgery, colonoscopy Past Anesthesia/Blood Transfusion Reactions: Family History of Problems w/ A nesthesia Additional Past Anesthesia/Blood Transfusion Reaction / Comment(s): dad-hard time waking up due to enzyme problems in liver Past Psychological History: ADD/ADHD, Anxiety, Bipolar, Depression, PTSD Smoking Status: Current every day smoker Past Alcohol Use History: None Reported Past Drug Use History: None Reported - Past Family History Brother(s) Family Medical History: Cancer Additional Family Medical History / Comment(s): testicular Father Family Medical History: Coronary Artery Disease (CAD), CVA/TIA, Diabetes Mellitus, Renal Disease Additional Family Medical History / Comment(s): GLAUCOMA,NEUROPATHY HAD TRIPLE CABG, at 56yrs from renal disease. Mother Family Medical History: Hyperlipidemia Additional Family Medical History / Comment(s): DDD, HAD 3 vessel CABG AGE 54. General Exam Limitations: no limitations General appearance: alert, in no apparent distress Head exam: Present: atraumatic, normocephalic, normal inspection Eye exam: Present: normal appearance, PERRL, EOMI. Absent: scleral icterus, conjunctival injection, periorbital swelling ENT exam: Present: normal exam, mucous membranes moist Neck exam: Present: normal inspection. Absent: tenderness, meningismus, lymphad enopathy Respiratory exam: Present: normal lung sounds bilaterally. Absent: respiratory distress, wheezes, rales, rhonchi, stridor Cardiovascular Exam: Present: regular rate, normal rhythm, normal heart sounds. Absent: systolic murmur, diastolic murmur, rubs, gallop, clicks GI/Abdominal exam: Present: soft, normal bowel sounds. Absent: distended, tenderness, guarding, rebound, rigid Extremities exam: Present: normal inspection, full ROM, normal capillary refill. Absent: tenderness, pedal edema, joint swelling, calf tenderness Back exam: Present: normal inspection Neurological exam: Present: alert, oriented X3, CN II-XII intact Psychiatric exam: Present: normal affect, normal mood Skin exam: Present: warm, dry, intact, normal color. Absent: rash Course Vital Signs 03/03/20 16:43 Temperature 98 F Pulse Rate 102 H Respiratory 18 Rate Blood Pressure 117/70 O2 Sat by Pulse 99 Oximetry - Reevaluation(s) Reevaluation #1: 03/03/20 19:13 Medical record is reviewed Reevaluation #2: 03/03/20 19:13 Patient's in no distress Reevaluation #3: 09/09/20 19:13 Patient recheck feels improved Reevaluation #4: 03/03/20 19:13 Spoke with patient regarding results of findings okay for discharge Medical Decision Making - Medical Decision Making 34 female DEL with recurrent kidney stones and UTI. Symptoms improved, patient can be discharged home - Lab Data Result diagrams: 03/03/20 18:12 03/03/20 18:12 Lab Results 03/03/20 03/03/20 03/03/20 Range/Units 18:12 18:12 18:12 WBC 11.5 H (3.8-10.6) k/uL RBC 4.34 (3.80-5.40) m/uL Hgb 12.6 (11.4-16.0) gm/dL Hct 38.3 (34.0-46.0) % MCV 88.3 (80.0-100.0) fL MCH 29.1 (25.0-35.0) pg MCHC 32.9 (31.0-37.0) g/dL RDW 13.0 (11.5-15.5) % Plt Count 229 (150-450) k/uL Neutrophils % 66 % Lymphocytes % 25 % Monocytes % 4 % Eosinophils % 3 % Basophils % 1 % Neutrophils # 7.5 (1.3-7.7) k/uL Lymphocytes # 2.8 (1.0-4.8) k/uL Monocytes # 0.5 (0-1.0) k/uL Eosinophils # 0.3 (0-0.7) k/uL Basophils # 0.1 (0-0.2) k/uL Sodium 140 (137-145) mmol/L Potassium 3.6 (3.5-5.1) mmol/L Chloride 111 H (98-107) mmol/L Carbon Dioxide 21 L (22-30) mmol/L Anion Gap 8 mmol/L BUN 10 (7-17) mg/dL Creatinine 0.67 (0.52-1.04) mg/dL Est GFR (CKD-EPI)AfAm >90 (>60 ml/min/1.73 sqM) Est GFR (CKD-EPI)NonAf >90 (>60 ml/min/1.73 sqM) Glucose 163 H (74-99) mg/dL Calcium 9.2 (8.4-10.2) mg/dL Phosphorus 3.9 (2.5-4.5) mg/dL Magnesium 1.7 (1.6-2.3) mg/dL Total Bilirubin 0.3 (0.2-1.3) mg/dL AST 53 H (14-36) U/L ALT 44 H (4-34) U/L Alkaline Phosphatase 102 (38-126) U/L Total Protein 6.5 (6.3-8.2) g/dL Albumin 3.9 (3.5-5.0) g/dL Urine Color Yellow Urine Appearance Turbid H (Clear) Urine pH 7.5 (5.0-8.0) Ur Specific [place] 1.015 (1.001-1.035) Urine Protein Trace H (Negative) Urine Glucose (UA) Negative (Negative) Urine Ketones Negative (Negative) Urine Blood Large H (Negative) Urine Nitrite Negative (Negative) Urine Bilirubin Negative (Negative) Urine Urobilinogen <2.0 (<2.0) mg/dL Ur Leukocyte Esterase Large H (Negative) Urine RBC >182 H (0-5) /hpf Urine WBC 68 H (0-5) /hpf Ur Squamous Epith Cells 3 (0-4) /hpf Amorphous Sediment Moderate H (None) /hpf Urine Mucus Rare H (None) /hpf - EKG Data -: EKG Interpreted by Me (EKG sinus rhythm 79 PA 160 QRS 74 QTc 444) - Radiology Data Radiology results: report reviewed (X-ray KUB negative for acute disaease), image reviewed Disposition Clinical Impression: Intractable pain, UTI (urinary tract infection) Disposition: HOME SELF-CARE Condition: Fair Instructions (If sedation given, give patient instructions): Urinary Tract Infection in Women (ED), Flank Pain (ED) Is patient prescribed a controlled substance at d/c from ED?: No Referrals: Melchor Stevens MD [Primary Care Provider] - 1-2 days
[2020-03-03] MEDS ORDERED: ONDANSETRON 4 MG/2 ML VIAL IVP STA (17:36)
[2020-03-03] MEDS ORDERED: KETOROLAC 15 MG/ML 1 ML VIAL IVP STA (17:36)
[2020-03-03] MEDS ORDERED: SODIUM CHLORIDE 0.9% 1,000 ML IV STA (17:36)
[2020-03-03] MEDS ORDERED: diphenhydrAMINE 50 MG/ML 1 ML VIAL IVP STA (17:36)
[2020-03-03] MEDS: HYDROmorphone 1 MG/ML 1 ML SYRINGE IVP STA ×2 (18:20→19:12)
[2020-03-03 18:30] LABS: Amorphous Sediment,Urine Moderate /hpf; Appearance,Urine Turbid (Clear); Basophils # (A) 0.1 k/uL (0-0.2); Basophils % (A) 1 %; Bilirubin,Urine Negative (Negative); Blood,Urine Large (Negative); Color,Urine Yellow; Eosinophils # (A) 0.3 k/uL (0-0.7); Eosinophils % (A) 3 %; Glucose,Urine (UA) Negative (Negative); HCT 38.3 % (34.0-46.0); HGB 12.6 gm/dL (11.4-16.0); Ketones,Urine Negative (Negative); Leukocyte Esterase,Urine Large (Negative); Lymphocytes # (A) 2.8 k/uL (1.0-4.8); Lymphocytes % (A) 25 %; MCH 29.1 pg (25.0-35.0); MCHC 32.9 g/dL (31.0-37.0); MCV 88.3 fL (80.0-100.0); Mean Platelet Volume 7.5; Monocytes # (A) 0.5 k/uL (0-1.0); Monocytes % (A) 4 %; Mucus,Urine Rare /hpf; Neutrophils # (A) 7.5 k/uL (1.3-7.7); Neutrophils % (A) 66 %; Nitrite,Urine Negative (Negative); PH, Urine 7.5 (5.0-8.0); Platelet Count 229 k/uL (150-450); Protein,Urine Trace (Negative); RBC 4.34 m/uL (3.80-5.40); RBC,Urine >182 /hpf (0-5); Specific Gravity,Urine 1.015 (1.001-1.035); Squamous Epithelial Cell,Urine 3 /hpf (0-4); Urobilinogen,Urine <2.0 mg/dL (<2.0); WBC 11.5 k/uL (3.8-10.6); WBC,Urine 68 /hpf (0-5)
--- NOTE | 2020-03-03 18:49 | XR ---
EXAMINATION TYPE: XR KUB DATE OF EXAM: 03/03/2020 6:38 PM CLINICAL HISTORY: Left flank pain. History of kidney stones. TECHNIQUE: Two Upright KUB images of the abdomen are obtained. COMPARISON: Most recent abdominal x-ray November 30, 2019. CT renal stones January 25, 2020. FINDINGS: Some paucity of bowel gas. Visualized gas in a nondistended stomach along with scattered sm all and large bowel loops. Cholecystectomy clips are redemonstrated. Right-sided pelvic phleboliths n oted. No suspicious calcifications clearly seen. Underlying levoconvex scoliosis centered L3 level re demonstrated. No pneumoperitoneum. IMPRESSION: Overall nonspecific but strongly favor nonobstructive bowel gas pattern remains present.
[2020-03-03 18:55] LABS: ALT 44 U/L (4-34); AST 53 U/L (14-36); African American GFR (CKD) >90 (>60 ml/min/1.73 sqM); Albumin 3.9 g/dL (3.5-5.0); Alkaline Phosphatase 102 U/L (38-126); Anion Gap 8 mmol/L; Blood Urea Nitrogen 10 mg/dL (7-17); Calcium 9.2 mg/dL (8.4-10.2); Carbon Dioxide 21 mmol/L (22-30); Chloride 111 mmol/L (98-107); Glucose 163 mg/dL (74-99); Magnesium 1.7 mg/dL (1.6-2.3); Non-African American GFR(CKD) >90 (>60 ml/min/1.73 sqM); Phosphorus 3.9 mg/dL (2.5-4.5); Potassium 3.6 mmol/L (3.5-5.1); Sodium 140 mmol/L (137-145); Total Bilirubin 0.3 mg/dL (0.2-1.3); Total Protein 6.5 g/dL (6.3-8.2)
[2020-03-03] MEDS ORDERED: cefTRIAXone IN SWFI 1,000 MG/10 ML SYRINGE IVP STA (18:55)
[2020-03-03 19:58] VITALS: BP 110/52; PULSE 78; RESP 18
== END 2020-03-03 19:57 | disposition home or self-care (01) ==
LOC: EC 16:36
DX: N39.0 Urinary tract infection, site not specified (principal); F31.9 Bipolar disorder, unspecified; F41.9 Anxiety disorder, unspecified; F90.9 Attention-deficit hyperactivity disorder, unspecified type; F43.10 Post-traumatic stress disorder, unspecified; E11.9 Type 2 diabetes mellitus without complications; K21.9 Gastro-esophageal reflux disease without esophagitis; E78.5 Hyperlipidemia, unspecified; I10 Essential (primary) hypertension; F17.200 Nicotine dependence, unspecified, uncomplicated; Z79.4 Long term (current) use of insulin; Z88.0 Allergy status to penicillin; Z88.2 Allergy status to sulfonamides; Z91.018 Allergy to other foods; Z91.041 Radiographic dye allergy status; Z88.5 Allergy status to narcotic agent; Z88.8 Allergy status to other drugs, medicaments and biological substances; Z90.49 Acquired absence of other specified parts of digestive tract; Z98.890 Other specified postprocedural states; Z79.899 Other long term (current) drug therapy; Z87.19 Personal history of other diseases of the digestive system; Z87.442 Personal history of urinary calculi
CPT/HCPCS: 36415; 93005; 80053; 83735; 84100; 85025; 81001; 87086; 87077; 87186; 74018; 99285; 96374; 96375 ×4; 96361; J1200; J2405; J0696; J1170; J1885

== ENCOUNTER 2020-03-09 16:41 | Emergency (ER) | payer OTHER ==
[2020-03-09 16:48] VITALS: TEMP 97.8
[2020-03-09] MEDS ORDERED: SODIUM CHLORIDE 0.9% 1,000 ML IV ONE (17:00)
[2020-03-09] MEDS ORDERED: ONDANSETRON 4 MG/2 ML VIAL IVP STA (17:00)
--- NOTE | 2020-03-09 17:05 | ED ---
General Adult HPI - General Chief complaint: Urogenital Stated complaint: kidney stones Time Seen by Provider: 03/09/20 16:49 Source: patient, RN notes reviewed, old records reviewed Mode of arrival: ambulatory Limitations: no limitations - History of Present Illness Initial comments: Patient is a 44-year-old female who presents to the ER today for evaluation for concern for left-sided flank pain. She reports that she's been having symptoms of worsening pain nausea vomiting for the past 3 days. She states that she was seen in emergency department a few days ago and was diagnosed with UTI as well as. They did place her on antibiotics. She was called recently because the UTI was resistant to previous antibiotic. Patient states that she has no chest pain, shortness of breath. She denies any associated diarrhea or bowel changes. - Related Data Home Medications Medication Instructions Recorded Confirmed oxyCODONE-APAP 10-325MG [Percocet 1 tab PO Q6H PRN 08/29/17 02/09/20 10-325 mg] PARoxetine HCL [Paxil] 40 mg PO DAILY 03/12/18 02/09/20 Topiramate [Topamax] 100 mg PO BID 03/12/18 02/09/20 PARoxetine [Paxil] 20 mg PO DAILY 06/04/18 02/09/20 Atorvastatin [Lipitor] 40 mg PO DAILY 07/16/19 02/09/20 Loratadine [Claritin] 10 mg PO DAILY 07/16/19 02/09/20 Insulin Glargine,Hum.rec.anlog 20 unit SQ HS 01/26/20 02/09/20 [Basaglar Melissa U-100] Ondansetron Odt [Zofran Odt] 4 mg PO Q8H PRN 01/26/20 02/09/20 lisinopriL [Zestril] 10 mg PO DAILY 01/26/20 02/09/20 INSULIN ASPART (NovoLOG) [NovoLOG 13 unit SQ AC-TID 02/09/20 02/09/20 (formulary)] Montelukast [Singulair] 10 mg PO DAILY 02/09/20 02/09/20 Tamsulosin HCl [Flomax] 0.4 mg PO DAILY 02/09/20 02/09/20 Previous Rx's Medication Instructions Recorded SUMAtriptan succinate [Imitrex] 100 mg PO DAILY PRN tab 08/02/17 Ondansetron Odt [Zofran Odt] 4 mg PO Q8HR PRN #12 tab 03/09/20 Allergies Allergy/AdvReac Type Severity Reaction Status Date / Time bupropion HCl Allergy Rash/Hives Verified 03/09/20 16:48 [From Wellbutrin] divalproex sodium Allergy Unknown Verified 03/09/20 16:48 [From Depakote] fentanyl Allergy Swelling Verified 03/09/20 16:48 Iodinated Contrast Media Allergy Anaphylaxis Verified 03/09/20 16:48 [Iodinated Contrast Media - IV Dye] orange juice [[place]] Allergy Rash/Hives Verified 03/09/20 16:48 Sulfa (Sulfonamide Allergy Rash/Hives Verified 03/09/20 16:48 Antibiotics) Penicillins AdvReac Nausea & Verified 03/09/20 16:48 Vomiting Review of Systems ROS Statement: Those systems with pertinent positive or pertinent negative responses have been documented in the HPI. ROS Other: All systems not noted in ROS Statement are negative. 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 History of Any Multi-Drug Resistant Organisms: ESBL Date of last positivie culture/infection: 05/14/17 MDRO Source:: ESBL URINE, Past Surgical History: Bladder Surgery, Section, Cholecystectomy, Hysterectomy, Orthopedic Surgery, Tubal Ligation Additional Past Surgical History / Comment(s): R ovarian cystectomy, l aparoscopic surgery for L ovary that had attached to the bowel, D&C, numerous lithotripsies, nephroscopies, cystoscopies and stents to ureters-none in place at this time, L robotic pyeloplasty with post op infection around kidney which then required a picc line/later removed (pt states was not MRSA), L rotator cuff repair, L wrist tendon surgery, colonoscopy Past Anesthesia/Blood Transfusion Reactions: Family History of Problems w/ Anesthesia Additional Past Anesthesia/Blood Transfusion Reaction / Comment(s): dad-hard time waking up due to enzyme problems in liver Past Psychological History: ADD/ADHD, Anxiety, Bipolar, Depression, PTSD Smoking Status: Current every day smoker Past Alcohol Use History: None Reported Past Drug Use History: None Reported - Past Family History Brother(s) Family Medical History: Cancer Additional Family Medical History / Comment(s): testicular Father Family Medical History: Coronary Artery Disease (CAD), CVA/TIA, Diabetes Mellitus, Renal Disease Additional Family Medical History / Comment(s): GLAUCOMA,NEUROPATHY HAD TRIPLE CABG, at 56yrs from renal disease. Mother Family Medical History: Hyperlipidemia Additional Family Medical History / Comment(s): DDD, HAD 3 vessel CABG AGE 54. General Exam - General Exam Comments Initial Comments: alert and oriented 44-year-old female. No distress. Limitations: no limitations General appearance: alert, in no apparent distress Head exam: Present: atraumatic, normocephalic, normal inspection Eye exam: Present: normal appearance, PERRL, EOMI. Absent: scleral icterus, conjunctival injection, periorbital swelling ENT exam: Present: normal exam, mucous membranes moist Neck exam: Present: normal inspection. Absent: tenderness, meningismus, lymphadenopathy Respiratory exam: Present: normal lung sounds bilaterally. Absent: respiratory distress, wheezes, rales, rhonchi, stridor Cardiovascular Exam: Present: regular rate, normal rhythm, normal heart sounds. Absent: systolic murmur, diastolic murmur, rubs, gallop, clicks GI/Abdominal exam: Present: soft Extremities exam: Present: normal inspection, full ROM, normal capillary refill. Absent: tenderness, pedal edema, joint swelling, calf tenderness Back exam: Present: normal inspection Course Vital Signs 03/09/20 03/09/20 03/09/20 16:45 17:31 18:05 Temperature 97.8 F Pulse Rate 94 86 83 Respiratory 18 16 18 Rate Blood Pressure 111/72 110/67 93/59 O2 Sat by Pulse 99 96 99 Oximetry Medical Decision Making - Medical Decision Making 44-year-old female presents emergency room today for left-sided flank pain and hematuria. She is lunch emergency department for complaints. Patient's previous urine sample did grow enterococcus. She's been on antibiotics. They switched out her urine is improved. Urine culture will be completed again today. Patient's CBC CMP unremarkable. Patient has had multiple CT scans and imaging studies. On reevaluation she is resting comfortably in bed. Discussed would not image her skull stones at this time. Patient is agreeable to this. Discussed PCP follow-up. - Lab Data Result diagrams: 03/09/20 17:19 03/09/20 17:19 Lab Results 03/09/20 03/09/20 03/09/20 Range/Units 17:19 17:19 17:19 WBC 12.5 H (3.8-10.6) k/uL RBC 4.60 (3.80-5.40) m/uL Hgb 13.4 (11.4-16.0) gm/dL Hct 40.8 (34.0-46.0) % MCV 88.6 (80.0-100.0) fL MCH 29.0 (25.0-35.0) pg MCHC 32.7 (31.0-37.0) g/dL RDW 12.9 (11.5-15.5) % Plt Count 279 (150-450) k/uL Neutrophils % 62 % Lymphocytes % 28 % Monocytes % 4 % Eosinophils % 3 % Basophils % 1 % Neutrophils # 7.8 H (1.3-7.7) k/uL Lymphocytes # 3.6 (1.0-4.8) k/uL Monocytes # 0.5 (0-1.0) k/uL Eosinophils # 0.4 (0-0.7) k/uL Basophils # 0.1 (0-0.2) k/uL Sodium 135 L (137-145) mmol/L Potassium 4.0 (3.5-5.1) mmol/L Chloride 108 H (98-107) mmol/L Carbon Dioxide 20 L (22-30) mmol/L Anion Gap 7 mmol/L BUN 8 (7-17) mg/dL Creatinine 0.64 (0.52-1.04) mg/dL Est GFR (CKD-EPI)AfAm >90 (>60 ml/min/1.73 sqM) Est GFR (CKD-EPI)NonAf >90 (>60 ml/min/1.73 sqM) Glucose 237 H (74-99) mg/dL Plasma Lactic Acid Brant (0.7-2.0) mmol/L Calcium 9.3 (8.4-10.2) mg/dL Total Bilirubin 0.3 (0.2-1.3) mg/dL AST 34 (14-36) U/L ALT 28 (4-34) U/L Alkaline Phosphatase 109 (38-126) U/L Total Protein 6.9 (6.3-8.2) g/dL Albumin 4.1 (3.5-5.0) g/dL Urine Color Light Red Urine Appearance Cloudy H (Clear) Urine pH 6.0 (5.0-8.0) Ur Specific [place] 1.016 (1.001-1.035) Urine Protein Trace H (Negative) Urine Glucose (UA) 1+ H (Negative) Urine Ketones Negative (Negative) Urine Blood Large H (Negative) Urine Nitrite Negative (Negative) Urine Bilirubin Negative (Negative) Urine Urobilinogen <2.0 (<2.0) mg/dL Ur Leukocyte Esterase Small H (Negative) Urine RBC >182 H (0-5) /hpf Urine WBC 6 H (0-5) /hpf Ur Squamous Epith Cells 10 H (0-4) /hpf /15/20 Range/Units 17:19 WBC (3.8-10.6) k/uL RBC (3.80-5.40) m/uL Hgb (11.4-16.0) gm/dL Hct (34.0-46.0) % MCV (80.0-100.0) fL MCH (25.0-35.0) pg MCHC (31.0-37.0) g/dL RDW (11.5-15.5) % Plt Count (150-450) k/uL Neutrophils % % Lymphocytes % % Monocytes % % Eosinophils % % Basophils % % Neutrophils # (1.3-7.7) k/uL Lymphocytes # (1.0-4.8) k/uL Monocytes # (0-1.0) k/uL Eosinophils # (0-0.7) k/uL Basophils # (0-0.2) k/uL Sodium (137-145) mmol/L Potassium (3.5-5.1) mmol/L Chloride (98-107) mmol/L Carbon Dioxide (22-30) mmol/L Anion Gap mmol/L BUN (7-17) mg/dL Creatinine (0.52-1.04) mg/dL Est GFR (CKD-EPI)AfAm (>60 ml/min/1.73 sqM) Est GFR (CKD-EPI)NonAf (>60 ml/min/1.73 sqM) Glucose (74-99) mg/dL Plasma Lactic Acid Brant 1.9 (0.7-2.0) mmol/L Calcium (8.4-10.2) mg/dL Total Bilirubin (0.2-1.3) mg/dL AST (14-36) U/L ALT (4-34) U/L Alkaline Phosphatase (38-126) U/L Total Protein (6.3-8.2) g/dL Albumin (3.5-5.0) g/dL Urine Color Urine Appearance (Clear) Urine pH (5.0-8.0) Ur Specific [place] (1.001-1.035) Urine Protein (Negative) Urine Glucose (UA) (Negative) Urine Ketones (Negative) Urine Blood (Negative) Urine Nitrite (Negative) Urine Bilirubin (Negative) Urine Urobilinogen (<2.0) mg/dL Ur Leukocyte Esterase (Negative) Urine RBC (0-5) /hpf Urine WBC (0-5) /hpf Ur Squamous Epith Cells (0-4) /hpf Disposition Clinical Impression: Hematuria, Flank pain Disposition: HOME SELF-CARE Condition: Good Prescriptions: Ondansetron Odt [Zofran Odt] 4 mg PO Q8HR PRN #12 tab PRN Reason: Nausea Is patient prescribed a controlled substance at d/c from ED?: No Referrals: Melchor Stevens MD [Primary Care Provider] - 1-2 days
[2020-03-09] MEDS ORDERED: MORPHINE SULFATE 2 MG/ML SYRINGE IVP ONE (17:07)
[2020-03-09] MEDS: SODIUM CHLORIDE 0.9% 1,000 ML IV SCH ×2 (17:17→17:18)
[2020-03-09 17:37] LABS: Basophils # (A) 0.1 k/uL (0-0.2); Basophils % (A) 1 %; Eosinophils # (A) 0.4 k/uL (0-0.7); Eosinophils % (A) 3 %; HCT 40.8 % (34.0-46.0); HGB 13.4 gm/dL (11.4-16.0); Lymphocytes # (A) 3.6 k/uL (1.0-4.8); Lymphocytes % (A) 28 %; MCHC 32.7 g/dL (31.0-37.0); MCV 88.6 fL (80.0-100.0); Mean Platelet Volume 7.2; Monocytes # (A) 0.5 k/uL (0-1.0); Monocytes % (A) 4 %; Neutrophils # (A) 7.8 k/uL (1.3-7.7); Neutrophils % (A) 62 %; Platelet Count 279 k/uL (150-450); RDW 12.9 % (11.5-15.5); WBC 12.5 k/uL (3.8-10.6)
[2020-03-09 17:44] LABS: Appearance,Urine Cloudy (Clear); Bilirubin,Urine Negative (Negative); Blood,Urine Large (Negative); Color,Urine Light Red; Glucose,Urine (UA) 1+ (Negative); Ketones,Urine Negative (Negative); Leukocyte Esterase,Urine Small (Negative); Nitrite,Urine Negative (Negative); Protein,Urine Trace (Negative); RBC,Urine >182 /hpf (0-5); Specific Gravity,Urine 1.016 (1.001-1.035); Squamous Epithelial Cell,Urine 10 /hpf (0-4); Urobilinogen,Urine <2.0 mg/dL (<2.0); WBC,Urine 6 /hpf (0-5)
[2020-03-09] MEDS ORDERED: KETOROLAC 15 MG/ML 1 ML VIAL IVP SCH (18:00)
[2020-03-09 18:05] LABS: ALT 28 U/L (4-34); AST 34 U/L (14-36); African American GFR (CKD) >90 (>60 ml/min/1.73 sqM); Albumin 4.1 g/dL (3.5-5.0); Alkaline Phosphatase 109 U/L (38-126); Anion Gap 7 mmol/L; Blood Urea Nitrogen 8 mg/dL (7-17); Calcium 9.3 mg/dL (8.4-10.2); Carbon Dioxide 20 mmol/L (22-30); Chloride 108 mmol/L (98-107); Glucose 237 mg/dL (74-99); Non-African American GFR(CKD) >90 (>60 ml/min/1.73 sqM); Sodium 135 mmol/L (137-145); Total Bilirubin 0.3 mg/dL (0.2-1.3); Total Protein 6.9 g/dL (6.3-8.2)
[2020-03-09 18:08] VITALS: RESP 18
[2020-03-09] MEDS ORDERED: HYDROcodone/APAP 5-325MG 1 EACH TAB PO STA (18:48)
[2020-03-09 18:57] VITALS: BP 112/70; PULSE 73
== END 2020-03-09 18:57 | disposition home or self-care (01) ==
LOC: EC 16:41
DX: R10.9 Unspecified abdominal pain (principal); R31.9 Hematuria, unspecified; R11.2 Nausea with vomiting, unspecified; E11.9 Type 2 diabetes mellitus without complications; E78.5 Hyperlipidemia, unspecified; I10 Essential (primary) hypertension; F17.200 Nicotine dependence, unspecified, uncomplicated; F41.9 Anxiety disorder, unspecified; F32.9 Major depressive disorder, single episode, unspecified; Z79.899 Other long term (current) drug therapy; Z79.4 Long term (current) use of insulin; Z79.51 Long term (current) use of inhaled steroids; Z88.8 Allergy status to other drugs, medicaments and biological substances; Z88.5 Allergy status to narcotic agent; Z91.041 Radiographic dye allergy status; Z91.018 Allergy to other foods; Z88.2 Allergy status to sulfonamides; Z88.0 Allergy status to penicillin
CPT/HCPCS: 36415; 80053; 83605; 85025; 81001; 99284; 96374; 96375 ×2; 96361; J2405; J2270; J1885

== ENCOUNTER 2020-03-17 03:03 | Emergency (ER) | payer OTHER ==
[2020-03-17 03:16] VITALS: TEMP 97.9
[2020-03-17] MEDS ORDERED: SODIUM CHLORIDE 0.9% 500 ML 500 ML IV STA (03:46)
[2020-03-17] MEDS ORDERED: MORPHINE SULFATE 4 MG/ML SYRINGE IV STA ×2 (03:47→05:02)
[2020-03-17] MEDS ORDERED: ONDANSETRON 4 MG/2 ML VIAL IVP STA (03:47)
[2020-03-17 04:15] LABS: Basophils # (A) 0.1 k/uL (0-0.2); Basophils % (A) 1 %; Eosinophils # (A) 0.4 k/uL (0-0.7); Eosinophils % (A) 3 %; HCT 45.3 % (34.0-46.0); HGB 14.6 gm/dL (11.4-16.0); Lymphocytes # (A) 3.2 k/uL (1.0-4.8); Lymphocytes % (A) 29 %; MCH 28.3 pg (25.0-35.0); MCHC 32.3 g/dL (31.0-37.0); MCV 87.6 fL (80.0-100.0); Mean Platelet Volume 7.3; Monocytes # (A) 0.5 k/uL (0-1.0); Monocytes % (A) 5 %; Neutrophils # (A) 6.7 k/uL (1.3-7.7); Neutrophils % (A) 61 %; Platelet Count 282 k/uL (150-450); RBC 5.17 m/uL (3.80-5.40); RDW 12.7 % (11.5-15.5)
[2020-03-17 04:16] LABS: Appearance,Urine Cloudy (Clear); Bacteria,Urine Occasional /hpf; Bilirubin,Urine Negative (Negative); Blood,Urine Negative (Negative); Calcium Oxalate Crystals,Urine Many /hpf; Color,Urine Yellow; Glucose,Urine (UA) Trace (Negative); Ketones,Urine Negative (Negative); Leukocyte Esterase,Urine Negative (Negative); Mucus,Urine Few /hpf; Nitrite,Urine Negative (Negative); PH, Urine 5.5 (5.0-8.0); Protein,Urine Trace (Negative); RBC,Urine 2 /hpf (0-5); Specific Gravity,Urine 1.022 (1.001-1.035); Squamous Epithelial Cell,Urine 28 /hpf (0-4); Urobilinogen,Urine <2.0 mg/dL (<2.0); WBC,Urine 3 /hpf (0-5)
[2020-03-17 04:27] LABS: African American GFR (CKD) >90 (>60 ml/min/1.73 sqM); Anion Gap 11 mmol/L; Blood Urea Nitrogen 7 mg/dL (7-17); Calcium 9.3 mg/dL (8.4-10.2); Carbon Dioxide 18 mmol/L (22-30); Chloride 108 mmol/L (98-107); Glucose 308 mg/dL (74-99); Non-African American GFR(CKD) >90 (>60 ml/min/1.73 sqM); Potassium 3.8 mmol/L (3.5-5.1); Sodium 137 mmol/L (137-145)
--- NOTE | 2020-03-17 04:54 | ED ---
Female Urogenital HPI - General Chief complaint: Urogenital Stated complaint: Kidney Stones Time Seen by Provider: 03/17/20 03:31 Source: patient Mode of arrival: ambulatory Limitations: no limitations - Related Data Home Medications Medication Instructions Recorded Confirmed oxyCODONE-APAP 10-325MG [Percocet 1 tab PO Q6H PRN 08/29/17 02/09/20 10-325 mg] PARoxetine HCL [Paxil] 40 mg PO DAILY 03/12/18 02/09/20 Topiramate [Topamax] 100 mg PO BID 03/12/18 02/09/20 PARoxetine [Paxil] 20 mg PO DAILY 06/04/18 02/09/20 Atorvastatin [Lipitor] 40 mg PO DAILY 07/16/19 02/09/20 Loratadine [Claritin] 10 mg PO DAILY 07/16/19 02/09/20 Insulin Glargine,Hum.rec.anlog 20 unit SQ HS 01/26/20 02/09/20 [Basaglar Kwikpen U-100] Ondansetron Odt [Zofran Odt] 4 mg PO Q8H PRN 01/26/20 02/09/20 lisinopriL [Zestril] 10 mg PO DAILY 01/26/20 02/09/20 INSULIN ASPART (NovoLOG) [NovoLOG 13 unit SQ AC-TID 02/09/20 02/09/20 (formulary)] Montelukast [Singulair] 10 mg PO DAILY 02/09/20 02/09/20 Tamsulosin HCl [Flomax] 0.4 mg PO DAILY 02/09/20 02/09/20 Previous Rx's Medication Instructions Recorded SUMAtriptan succinate [Imitrex] 100 mg PO DAILY PRN tab 08/02/17 Ondansetron Odt [Zofran Odt] 4 mg PO Q8HR PRN #12 tab 03/09/20 Allergies Allergy/AdvReac Type Severity Reaction Status Date / Time bupropion HCl Allergy Rash/Hives Verified 03/17/20 03:16 [From Wellbutrin] divalproex sodium Allergy Unknown Verified 03/17/20 03:16 [From Depakote] fentanyl Allergy Swelling Verified 03/17/20 03:16 Iodinated Contrast Media Allergy Anaphylaxis Verified 03/17/20 03:16 [Iodinated Contrast Media - IV Dye] orange juice [[place]] Allergy Rash/Hives Verified 03/17/20 03:16 Sulfa (Sulfonamide Allergy Rash/Hives Verified 03/17/20 03:16 Antibiotics) Penicillins AdvReac Nausea & Verified 03/17/20 03:16 Vomiting Review of Systems ROS Statement: Those systems with pertinent positive or pertinent negative responses have been documented in the HPI. ROS Other: All systems not noted in ROS Statement are negative. 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 History of Any Multi-Drug Resistant Organisms: ESBL Date of last positivie culture/infection: 05/14/17 MDRO Source:: ESBL URINE, Past Surgical History: Bladder Surgery, Section, Cholecystectomy, Hysterectomy, Orthopedic Surgery, Tubal Ligation Additional Past Surgical History / Comment(s): R ovarian cystectomy, laparoscopic surgery for L ovary that had attached to the bowel, D&C, numerous lithotripsies, nephroscopies, cystoscopies and stents to ureters-none in place at this time, L robotic pyeloplasty with post op infection around kidney which then required a picc line/later removed (pt states was not MRSA), L rotator cuff repair, L wrist tendon surgery, colonoscopy Past Anesthesia/Blood Transfusion Reactions: Family History of Problems w/ Anesthesia Additional Past Anesthesia/Blood Transfusion Reaction / Comment(s): dad-hard time waking up due to enzyme problems in liver Past Psychological History: ADD/ADHD, Anxiety, Bipolar, Depression, PTSD Smoking Status: Current every day smoker Past Alcohol Use History: None Reported Past Drug Use History: None Reported - Past Family History Brother(s) Family Medical History: Cancer Additional Family Medical History / Comment(s): testicular Father Family Medical History: Coronary Artery Disease (CAD), CVA/TIA, Diabetes Mellitus, Renal Disease Additional Family Medical History / Comment(s): GLAUCOMA,NEUROPATHY HAD TRIPLE CABG, at 56yrs from renal disease. Mother Family Medical History: Hyperlipidemia Additional Family Medical History / Comment(s): DDD, HAD 3 vessel CABG AGE 54. General Exam Limitations: no limitations Course Vital Signs 03/17/20 03:11 Temperature 97.9 F Pulse Rate 85 Respiratory 18 Rate Blood Pressure 116/79 O2 Sat by Pulse 98 Oximetry Medical Decision Making - Lab Data Result diagrams: 03/17/20 04:01 03/17/20 04:01 Lab Results 03/17/20 03/17/20 03/17/20 Range/Units 04:01 04:01 04:01 WBC 11.0 H (3.8-10.6) k/uL RBC 5.17 (3.80-5.40) m/uL Hgb 14.6 (11.4-16.0) gm/dL Hct 45.3 (34.0-46.0) % MCV 87.6 (80.0-100.0) fL MCH 28.3 (25.0-35.0) pg MCHC 32.3 (31.0-37.0) g/dL RDW 12.7 (11.5-15.5) % Plt Count 282 (150-450) k/uL Neutrophils % 61 % Lymphocytes % 29 % Monocytes % 5 % Eosinophils % 3 % Basophils % 1 % Neutrophils # 6.7 (1.3-7.7) k/uL Lymphocytes # 3.2 (1.0-4.8) k/uL Monocytes # 0.5 (0-1.0) k/uL Eosinophils # 0.4 (0-0.7) k/uL Basophils # 0.1 (0-0.2) k/uL Sodium 137 (137-145) mmol/L Potassium 3.8 (3.5-5.1) mmol/L Chloride 108 H (98-107) mmol/L Carbon Dioxide 18 L (22-30) mmol/L Anion Gap 11 mmol/L BUN 7 (7-17) mg/dL Creatinine 0.63 (0.52-1.04) mg/dL Est GFR (CKD-EPI)AfAm >90 (>60 ml/min/1.73 sqM) Est GFR (CKD-EPI)NonAf >90 (>60 ml/min/1.73 sqM) Glucose 308 H (74-99) mg/dL Calcium 9.3 (8.4-10.2) mg/dL Urine Color Yellow Urine Appearance Cloudy H (Clear) Urine pH 5.5 (5.0-8.0) Ur Specific [place] 1.022 (1.001-1.035) Urine Protein Trace H (Negative) Urine Glucose (UA) Trace H (Negative) Urine Ketones Negative (Negative) Urine Blood Negative (Negative) Urine Nitrite Negative (Negative) Urine Bilirubin Negative (Negative) Urine Urobilinogen <2.0 (<2.0) mg/dL Ur Leukocyte Esterase Negative (Negative) Urine RBC 2 (0-5) /hpf Urine WBC 3 (0-5) /hpf Ur Squamous Epith Cells 28 H (0-4) /hpf Calcium Oxalate Crystal Many H (None) /hpf Urine Bacteria Occasional H (None) /hpf Urine Mucus Few H (None) /hpf Urine HCG, Qual (Not Detectd) 03/17/20 Range/Units 04:01 WBC (3.8-10.6) k/uL RBC (3.80-5.40) m/uL Hgb (11.4-16.0) gm/dL Hct (34.0-46.0) % MCV (80.0-100.0) fL MCH (25.0-35.0) pg MCHC (31.0-37.0) g/dL RDW (11.5-15.5) % Plt Count (150-450) k/uL Neutrophils % % Lymphocytes % % Monocytes % % Eosinophils % % Basophils % % Neutrophils # (1.3-7.7) k/uL Lymphocytes # (1.0-4.8) k/uL Monocytes # (0-1.0) k/uL Eosinophils # (0-0.7) k/uL Basophils # (0-0.2) k/uL Sodium (137-145) mmol/L Potassium (3.5-5.1) mmol/L Chloride (98-107) mmol/L Carbon Dioxide (22-30) mmol/L Anion Gap mmol/L BUN (7-17) mg/dL Creatinine (0.52-1.04) mg/dL Est GFR (CKD-EPI)AfAm (>60 ml/min/1.73 sqM) Est GFR (CKD-EPI)NonAf (>60 ml/min/1.73 sqM) Glucose (74-99) mg/dL Calcium (8.4-10.2) mg/dL Urine Color Urine Appearance (Clear) Urine pH (5.0-8.0) Ur Specific [place] (1.001-1.035) Urine Protein (Negative) Urine Glucose (UA) (Negative) Urine Ketones (Negative) Urine Blood (Negative) Urine Nitrite (Negative) Urine Bilirubin (Negative) Urine Urobilinogen (<2.0) mg/dL Ur Leukocyte Esterase (Negative) Urine RBC (0-5) /hpf Urine WBC (0-5) /hpf Ur Squamous Epith Cells (0-4) /hpf Calcium Oxalate Crystal (None) /hpf Urine Bacteria (None) /hpf Urine Mucus (None) /hpf Urine HCG, Qual Not Detected (Not Detectd) Disposition Clinical Impression: Flank pain, Hyperglycemia Disposition: HOME SELF-CARE Condition: Good Instructions (If sedation given, give patient instructions): Flank Pain (ED), Diabetic Hyperglycemia (ED) Is patient prescribed a controlled substance at d/c from ED?: No Referrals: Melchor Stevens MD [Primary Care Provider] - 1-2 days
[2020-03-17 05:28] VITALS: BP 120/74; PULSE 78; RESP 17
== END 2020-03-17 05:28 | disposition home or self-care (01) ==
LOC: EC 03:03
DX: E11.65 Type 2 diabetes mellitus with hyperglycemia (principal); R10.9 Unspecified abdominal pain; I10 Essential (primary) hypertension; F41.9 Anxiety disorder, unspecified; F31.9 Bipolar disorder, unspecified; F17.200 Nicotine dependence, unspecified, uncomplicated; Z79.4 Long term (current) use of insulin; Z79.51 Long term (current) use of inhaled steroids; Z79.899 Other long term (current) drug therapy; Z88.8 Allergy status to other drugs, medicaments and biological substances; Z91.041 Radiographic dye allergy status; Z91.048 Other nonmedicinal substance allergy status; Z88.2 Allergy status to sulfonamides; Z88.0 Allergy status to penicillin; Z88.5 Allergy status to narcotic agent
CPT/HCPCS: 36415; 80048; 85025; 81001; 81025; 99283; 96374; 96375; 96376; 96361; J2270; J2405

== ENCOUNTER 2020-04-04 21:10 | Emergency (ER) | payer OTHER ==
--- NOTE | 2020-04-04 21:58 | ED ---
General Adult HPI - General Chief complaint: Abdominal Pain Stated complaint: Abd Pain Time Seen by Provider: 04/04/20 21:35 Source: patient Mode of arrival: ambulatory Limitations: no limitations - History of Present Illness Initial comments: Patient presents the ED complaining of having left flank pain, nausea and one bout of vomiting since last night. Patient also admits to having hematuria. Patient states that she has a history of renal stones, and she feels that she is passing a renal stone. Patient denies trauma or injury, fever or chills, headache, focal neuro deficit, chest pain, dyspnea, dizziness, abdominal pain, hematemesis, diarrhea or constipation, bloody or melanotic stool, dysuria, urinary frequency, leg pain/numbness/weakness, incontinence or urinary retention, or any other symptoms or complaints. Patient states that she has had numerous CT scans in the past, and she does not want CT imaging done today. - Related Data Home Medications Medication Instructions Recorded Confirmed oxyCODONE-APAP 10-325MG [Percocet 1 tab PO Q6H PRN 08/29/17 04/04/20 10-325 mg] PARoxetine HCL [Paxil] 40 mg PO DAILY 03/12/18 04/04/20 Topiramate [Topamax] 100 mg PO BID 03/12/18 04/04/20 PARoxetine [Paxil] 20 mg PO DAILY 06/04/18 04/04/20 Atorvastatin [Lipitor] 40 mg PO DAILY 07/16/19 04/04/20 Insulin Glargine,Hum.rec.anlog 40 unit SQ HS 01/26/20 04/04/20 [Basaglar Kwikpen U-100] lisinopriL [Zestril] 10 mg PO DAILY 01/26/20 04/04/20 Montelukast [Singulair] 10 mg PO DAILY 02/09/20 04/04/20 ARIPiprazole [Abilify] 15 mg PO HS 04/04/20 04/04/20 Insulin Lispro [Admelog Solostar] 6 units SQ AC-TID 04/04/20 04/04/20 Mirtazapine 7.5 mg PO HS 04/04/20 04/04/20 OXcarbazepine [Trileptal] 300 mg PO BID 04/04/20 04/04/20 metFORMIN HCL 1,000 mg PO BID 04/04/20 04/04/20 Previous Rx's Medication Instructions Recorded SUMAtriptan succinate [Imitrex] 100 mg PO DAILY PRN tab 08/02/17 Allergies Allergy/AdvReac Type Severity Reaction Status Date / Time bupropion HCl Allergy Rash/Hives Verified 04/04/20 23:27 [From Wellbutrin] divalproex sodium Allergy Unknown Verified 04/04/20 23:27 [From Depakote] fentanyl Allergy Swelling Verified 04/04/20 23:27 Iodinated Contrast Media Allergy Anaphylaxis Verified 04/04/20 23:27 [Iodinated Contrast Media - IV Dye] orange juice [[place]] Allergy Rash/Hives Verified 04/04/20 23:27 Sulfa (Sulfonamide Allergy Rash/Hives Verified 04/04/20 23:27 Antibiotics) Penicillins AdvReac Nausea & Verified 04/04/20 23:27 Vomiting Review of Systems ROS Statement: Those systems with pertinent positive or pertinent negative responses have been documented in the HPI. ROS Other: All systems not noted in ROS Statement are negative. 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 History of Any Multi-Drug Resistant Organisms: ESBL Date of last positivie culture/infection: 05/14/17 MDRO Source:: ESBL URINE, Past Surgical History: Bladder Surgery, Section, Cholecystectomy, Hyst erectomy, Orthopedic Surgery, Tubal Ligation Additional Past Surgical History / Comment(s): R ovarian cystectomy, laparoscopic surgery for L ovary that had attached to the bowel, D&C, numerous lithotripsies, nephroscopies, cystoscopies and stents to ureters-none in place at this time, L robotic pyeloplasty with post op infection around kidney which then required a picc line/later removed (pt states was not MRSA), L rotator cuff repair, L wrist tendon surgery, colonoscopy Past Anesthesia/Blood Transfusion Reactions: Family History of Problems w/ Anesthesia Additional Past Anesthesia/Blood Transfusion Reaction / Comment(s): dad-hard time waking up due to enzyme problems in liver Past Psychological History: ADD/ADHD, Anxiety, Bipolar, Depression, PTSD Smoking Status: Current every day smoker Past Alcohol Use History: None Reported Past Drug Use History: None Reported - Past Family History Brother(s) Family Medical History: Cancer Additional Family Medical History / Comment(s): testicular Father Family Medical History: Coronary Artery Disease (CAD), CVA/TIA, Diabetes Mellitus, Renal Disease Additional Family Medical History / Comment(s): GLAUCOMA,NEUROPATHY HAD TRIPLE CABG, at 56yrs from renal disease. Mother Family Medical History: Hyperlipidemia Additional Family Medical History / Comment(s): DDD, HAD 3 vessel CABG AGE 54. General Exam Limitations: no limitations General appearance: alert, in no apparent distress Head exam: Present: atraumatic, normocephalic Eye exam: Present: normal appearance, EOMI ENT exam: Present: mucous membranes moist Neck exam: Present: other (Trachea is in midline) Respiratory exam: Present: normal lung sounds bilaterally. Absent: respiratory distress, wheezes, rales, rhonchi Cardiovascular Exam: Present: regular rate, normal rhythm, normal heart sounds, other (Normal radial pulses bilaterally) GI/Abdominal exam: Present: soft. Absent: distended, tenderness, guarding Extremities exam: Present: full ROM. Absent: tenderness, pedal edema, calf tenderness Back exam: Absent: tenderness, CVA tenderness (R), CVA tenderness (L) Neurological exam: Present: alert, oriented X3. Absent: motor sensory deficit Psychiatric exam: Present: normal affect, normal mood Skin exam: Present: warm, dry, intact, normal color Course Vital Signs 04/04/20 04/04/20 04/04/20 21:29 22:30 23:33 Temperature 98.9 F 97.6 F Pulse Rate 90 79 85 Respiratory 18 18 18 Rate Blood Pressure 144/70 134/68 94/73 O2 Sat by Pulse 95 98 98 Oximetry - Reevaluation(s) Reevaluation #1: 04/05/20 00:06 Patient states that her pain and nausea have improved with ED treatment, and she denies development of any new pain or symptoms while in the ED. Patient remains alert and breathing comfortably. Patient's abdomen remains soft and nontender on examination. Patient's blood glucose has now improved to 382. Patient is aware of her test results, and she feels comfortable going home at this time. Patient was counseled about flank pain and hyperglycemia. Patient was clearly explained return and follow-up instructions, and she feels comfortable with this plan. Medical Decision Making - Medical Decision Making Patient did not want CT imaging done in the ED given the numerous CT scans she's had done in the past. Patient's KUB is unremarkable. Patient's renal ultrasounds showed no hydronephrosis and show bilateral ureteral jets. Patient's UA shows hematuria, but no evidence of UTI. Patient is afebrile and without leukocytosis. Patient's abdomen is soft and nontender on examination. I suspect that the patient's pain may be secondary to renal colic. Patient's pain has improved with ED treatment. Patient is also noted to be hyperglycemic, but not acidotic or ketotic. Patient's blood glucose improved with IV fluid hydration and subcutaneous insulin administration in the ED. Patient was instructed to be sure to take her insulin regularly as prescribed. Will discharge patient home at this time. - Lab Data Result diagrams: 04/04/20 21:55 04/04/20 21:55 Lab Results 04/04/20 04/04/20 04/04/20 Range/Units 21:55 21:55 21:55 WBC 7.8 (3.8-10.6) k/uL RBC 4.36 (3.80-5.40) m/uL Hgb 13.3 (11.4-16.0) gm/dL Hct 39.1 (34.0-46.0) % MCV 89.7 (80.0-100.0) fL MCH 30.6 (25.0-35.0) pg MCHC 34.1 (31.0-37.0) g/dL RDW 12.6 (11.5-15.5) % Plt Count 199 (150-450) k/uL Neutrophils % 51 % Lymphocytes % 38 % Monocytes % 5 % Eosinophils % 4 % Basophils % 1 % Neutrophils # 4.0 (1.3-7.7) k/uL Lymphocytes # 2.9 (1.0-4.8) k/uL Monocytes # 0.4 (0-1.0) k/uL Eosinophils # 0.3 (0-0.7) k/uL Basophils # 0.1 (0-0.2) k/uL Sodium (137-145) mmol/L Potassium (3.5-5.1) mmol/L Chloride (98-107) mmol/L Carbon Dioxide (22-30) mmol/L Anion Gap mmol/L BUN (7-17) mg/dL Creatinine (0.52-1.04) mg/dL Est GFR (CKD-EPI)AfAm (>60 ml/min/1.73 sqM) Est GFR (CKD-EPI)NonAf (>60 ml/min/1.73 sqM) Glucose (74-99) mg/dL Calcium (8.4-10.2) mg/dL Total Bilirubin (0.2-1.3) mg/dL AST (14-36) U/L ALT (4-34) U/L Alkaline Phosphatase (38-126) U/L Total Protein (6.3-8.2) g/dL Albumin (3.5-5.0) g/dL Lipase (23-300) U/L Urine Color Yellow Urine Appearance Clear (Clear) Urine pH 7.5 (5.0-8.0) Ur Specific [place] 1.028 (1.001-1.035) Urine Protein Negative (Negative) Urine Glucose (UA) 4+ H (Negative) Urine Ketones Negative (Negative) Urine Blood Large H (Negative) Urine Nitrite Negative (Negative) Urine Bilirubin Negative (Negative) Urine Urobilinogen <2.0 (<2.0) mg/dL Ur Leukocyte Esterase Negative (Negative) Urine RBC >182 H (0-5) /hpf Urine WBC 1 (0-5) /hpf Ur Squamous Epith Cells 1 (0-4) /hpf Urine HCG, Qual Not Detected (Not Detectd) 04/04/20 Range/Units 21:55 WBC (3.8-10.6) k/uL RBC (3.80-5.40) m/uL Hgb (11.4-16.0) gm/dL Hct (34.0-46.0) % MCV (80.0-100.0) fL MCH (25.0-35.0) pg MCHC (31.0-37.0) g/dL RDW (11.5-15.5) % Plt Count (150-450) k/uL Neutrophils % % Lymphocytes % % Monocytes % % Eosinophils % % Basophils % % Neutrophils # (1.3-7.7) k/uL Lymphocytes # (1.0-4.8) k/uL Monocytes # (0-1.0) k/uL Eosinophils # (0-0.7) k/uL Basophils # (0-0.2) k/uL Sodium 132 L (137-145) mmol/L Potassium 3.7 (3.5-5.1) mmol/L Chloride 99 (98-107) mmol/L Carbon Dioxide 25 (22-30) mmol/L Anion Gap 8 mmol/L BUN 4 L (7-17) mg/dL Creatinine 0.69 (0.52-1.04) mg/dL Est GFR (CKD-EPI)AfAm >90 (>60 ml/min/1.73 sqM) Est GFR (CKD-EPI)NonAf >90 (>60 ml/min/1.73 sqM) Glucose 532 H* (74-99) mg/dL Calcium 8.8 (8.4-10.2) mg/dL Total Bilirubin 0.6 (0.2-1.3) mg/dL AST 36 (14-36) U/L ALT 38 H (4-34) U/L Alkaline Phosphatase 117 (38-126) U/L Total Protein 6.5 (6.3-8.2) g/dL Albumin 3.8 (3.5-5.0) g/dL Lipase 153 (23-300) U/L Urine Color Urine Appearance (Clear) Urine pH (5.0-8.0) Ur Specific [place] (1.001-1.035) Urine Protein (Negative) Urine Glucose (UA) (Negative) Urine Ketones (Negative) Urine Blood (Negative) Urine Nitrite (Negative) Urine Bilirubin (Negative) Urine Urobilinogen (<2.0) mg/dL Ur Leukocyte Esterase (Negative) Urine RBC (0-5) /hpf Urine WBC (0-5) /hpf Ur Squamous Epith Cells (0-4) /hpf Urine HCG, Qual (Not Detectd) - Radiology Data Radiology results: report reviewed (KUB is negative; renal ultrasounds: there is evidence for nonobstructing bilateral renal calculi, no hydronephrosis, normal bilateral ureteral jets) Disposition Clinical Impression: Hyperglycemia, Flank pain, Hematuria Disposition: HOME SELF-CARE Condition: Stable Instructions (If sedation given, give patient instructions): Renal Colic (ED), Hematuria (ED), Flank Pain (ED), Diabetic Hyperglycemia (ED) Additional Instructions: Return to the ER immediately should you develop new or worsening pain, a fever, persistent vomiting, feeling dizzy or faint, shortness of breath, or new or worsening symptoms. Follow up closely with your primary care provider, as well as your urologist. Call tomorrow morning for an appointment. Is patient prescribed a controlled substance at d/c from ED?: No Referrals: Elida Basurto MD [Primary Care Provider] - 1-2 days Time of Disposition: 00:06
[2020-04-04] MEDS ORDERED: SODIUM CHLORIDE 0.9% 1,000 ML IV ONE (22:03)
[2020-04-04] MEDS ORDERED: HYDROmorphone 1 MG/ML 1 ML SYRINGE IVP STA (22:03)
[2020-04-04] MEDS ORDERED: ONDANSETRON 4 MG/2 ML VIAL IVP STA (22:03)
[2020-04-04 22:06] LABS: Basophils # (A) 0.1 k/uL (0-0.2); Basophils % (A) 1 %; Eosinophils # (A) 0.3 k/uL (0-0.7); Eosinophils % (A) 4 %; HCT 39.1 % (34.0-46.0); HGB 13.3 gm/dL (11.4-16.0); Lymphocytes # (A) 2.9 k/uL (1.0-4.8); Lymphocytes % (A) 38 %; MCH 30.6 pg (25.0-35.0); MCHC 34.1 g/dL (31.0-37.0); MCV 89.7 fL (80.0-100.0); Mean Platelet Volume 7.7; Monocytes # (A) 0.4 k/uL (0-1.0); Monocytes % (A) 5 %; Neutrophils % (A) 51 %; Platelet Count 199 k/uL (150-450); RBC 4.36 m/uL (3.80-5.40); RDW 12.6 % (11.5-15.5); WBC 7.8 k/uL (3.8-10.6)
[2020-04-04 22:19] LABS: ALT 38 U/L (4-34); AST 36 U/L (14-36); African American GFR (CKD) >90 (>60 ml/min/1.73 sqM); Albumin 3.8 g/dL (3.5-5.0); Alkaline Phosphatase 117 U/L (38-126); Anion Gap 8 mmol/L; Blood Urea Nitrogen 4 mg/dL (7-17); Calcium 8.8 mg/dL (8.4-10.2); Carbon Dioxide 25 mmol/L (22-30); Chloride 99 mmol/L (98-107); Non-African American GFR(CKD) >90 (>60 ml/min/1.73 sqM); Potassium 3.7 mmol/L (3.5-5.1); Sodium 132 mmol/L (137-145); Total Bilirubin 0.6 mg/dL (0.2-1.3); Total Protein 6.5 g/dL (6.3-8.2)
[2020-04-04 22:21] LABS: Appearance,Urine Clear (Clear); Bilirubin,Urine Negative (Negative); Blood,Urine Large (Negative); Color,Urine Yellow; Glucose,Urine (UA) 4+ (Negative); Ketones,Urine Negative (Negative); Leukocyte Esterase,Urine Negative (Negative); Nitrite,Urine Negative (Negative); PH, Urine 7.5 (5.0-8.0); Protein,Urine Negative (Negative); RBC,Urine >182 /hpf (0-5); Specific Gravity,Urine 1.028 (1.001-1.035); Squamous Epithelial Cell,Urine 1 /hpf (0-4); Urobilinogen,Urine <2.0 mg/dL (<2.0); WBC,Urine 1 /hpf (0-5)
[2020-04-04 22:37] LABS: Glucose 532 mg/dL (74-99)
[2020-04-04] MEDS ORDERED: INSULIN REGULAR 100 UNIT/ML VIAL SQ STA (22:39)
--- NOTE | 2020-04-04 23:40 | US ---
EXAMINATION TYPE: US kidneys/renal and bladder DATE OF EXAM: 04/04/2020 COMPARISON: NONE CLINICAL HISTORY: left flank pain, h/o renal stones. left flank pain, hematuria, history of kidney st ones EXAM MEASUREMENTS: Right Kidney: 12.2 x 3.6 x 5.1 cm Left Kidney: 11.1 x 4.3 x 4.4 cm Right Kidney: echogenic foci mid = 0.5cm Left Kidney: echogenic foci = 0.6cm, prominent collecting system Bladder: appears wnl Bilateral Jets seen: yes IMPRESSION: There is evidence for nonobstructing bilateral renal calculi. No hydronephrosis. Normal bilateral ure teral jets.
--- NOTE | 2020-04-04 23:58 | XR ---
EXAMINATION TYPE: XR KUB DATE OF EXAM: 04/04/2020 COMPARISON: 03/03/2020 HISTORY: Left flank pain TECHNIQUE: 2 views upright FINDINGS: There are clips from cholecystectomy. There is no sign of intestinal obstruction or pneumop eritoneum. Fecal pattern is normal. I see no pathologic calcifications over the kidneys. Lung bases a re clear. There is no evidence of a mass. IMPRESSION: Nonacute abdomen. No change.
[2020-04-05 00:15] LABS: Glucose,Whole Blood 382 mg/dL (75-99)
[2020-04-05 00:47] VITALS: BP 101/77; PULSE 88; RESP 19; TEMP 97.9
== END 2020-04-05 00:19 | disposition home or self-care (01) ==
LOC: EC 21:10
DX: R10.9 Unspecified abdominal pain (principal); R31.9 Hematuria, unspecified; R11.2 Nausea with vomiting, unspecified; E11.65 Type 2 diabetes mellitus with hyperglycemia; F41.9 Anxiety disorder, unspecified; F31.9 Bipolar disorder, unspecified; F90.9 Attention-deficit hyperactivity disorder, unspecified type; F43.10 Post-traumatic stress disorder, unspecified; F17.200 Nicotine dependence, unspecified, uncomplicated; K21.9 Gastro-esophageal reflux disease without esophagitis; E78.5 Hyperlipidemia, unspecified; I10 Essential (primary) hypertension; Z79.4 Long term (current) use of insulin; Z79.899 Other long term (current) drug therapy; Z88.0 Allergy status to penicillin; Z88.2 Allergy status to sulfonamides; Z88.8 Allergy status to other drugs, medicaments and biological substances; Z91.018 Allergy to other foods; Z91.041 Radiographic dye allergy status; Z90.49 Acquired absence of other specified parts of digestive tract; Z90.710 Acquired absence of both cervix and uterus; Z98.51 Tubal ligation status
CPT/HCPCS: 36415; 80053; 83690; 85025; 81001; 81025; 74018; 76770; 99284; 96374; 96375; 96361; J2405; J1170

== ENCOUNTER 2020-04-21 22:40 | Emergency (ER) | payer OTHER ==
[2020-04-21] MEDS ORDERED: METOCLOPRAMIDE 5 MG/ML 2 ML VIAL IVP STA (23:34)
[2020-04-21] MEDS ORDERED: MORPHINE SULFATE 4 MG/ML SYRINGE IV STA (23:34)
[2020-04-21 23:51] LABS: Basophils # (A) 0.2 k/uL (0-0.2); Basophils % (A) 2 %; Eosinophils # (A) 0.4 k/uL (0-0.7); Eosinophils % (A) 3 %; HCT 45.6 % (34.0-46.0); Lymphocytes # (A) 5.1 k/uL (1.0-4.8); Lymphocytes % (A) 38 %; MCH 29.5 pg (25.0-35.0); MCV 89.4 fL (80.0-100.0); Mean Platelet Volume 7.7; Monocytes # (A) 0.7 k/uL (0-1.0); Monocytes % (A) 5 %; Neutrophils # (A) 6.7 k/uL (1.3-7.7); Neutrophils % (A) 51 %; Platelet Count 321 k/uL (150-450); RDW 12.5 % (11.5-15.5); WBC 13.3 k/uL (3.8-10.6)
--- NOTE | 2020-04-21 23:54 | XR ---
EXAMINATION TYPE: XR KUB DATE OF EXAM: 04/21/2020 COMPARISON: 04/04/2020 HISTORY: Flank pain TECHNIQUE: FINDINGS: There is no sign of intestinal obstruction or pneumoperitoneum. Fecal pattern is normal. Th ere is no evidence of a mass. There are clips from cholecystectomy. Lung bases are clear. There are n o calcifications over the kidneys. IMPRESSION: Nonacute abdomen. No change.
[2020-04-21 23:57] LABS: Appearance,Urine Cloudy (Clear); Bacteria,Urine Rare /hpf; Bilirubin,Urine Negative (Negative); Blood,Urine Large (Negative); Color,Urine Yellow; Glucose,Urine (UA) Negative (Negative); Ketones,Urine Negative (Negative); Leukocyte Esterase,Urine Negative (Negative); Mucus,Urine Rare /hpf; Nitrite,Urine Negative (Negative); Protein,Urine Negative (Negative); RBC,Urine >182 /hpf (0-5); Specific Gravity,Urine 1.014 (1.001-1.035); Squamous Epithelial Cell,Urine 7 /hpf (0-4); WBC,Urine 2 /hpf (0-5)
[2020-04-22 00:05] LABS: ALT 34 U/L (4-34); African American GFR (CKD) >90 (>60 ml/min/1.73 sqM); Anion Gap 10 mmol/L; Blood Urea Nitrogen 12 mg/dL (7-17); Calcium 9.7 mg/dL (8.4-10.2); Carbon Dioxide 21 mmol/L (22-30); Chloride 105 mmol/L (98-107); Glucose 181 mg/dL (74-99); Non-African American GFR(CKD) >90 (>60 ml/min/1.73 sqM); Sodium 136 mmol/L (137-145); Total Bilirubin 0.8 mg/dL (0.2-1.3)
[2020-04-22 00:34] LABS: AST 45 U/L (14-36); Albumin 4.7 g/dL (3.5-5.0); Alkaline Phosphatase 115 U/L (38-126); Potassium 4.5 mmol/L (3.5-5.1); Total Protein 8.3 g/dL (6.3-8.2)
--- NOTE | 2020-04-22 01:11 | ED ---
General Adult HPI - General Chief complaint: Abdominal Pain Stated complaint: kidney stones Time Seen by Provider: 04/21/20 22:50 Source: patient, RN notes reviewed, old records reviewed Mode of arrival: ambulatory Limitations: no limitations - History of Present Illness Initial comments: 44-year-old female patient presents emergency department for recurrent visits for left flank pain presents ED for evaluation of left flank pain. Reports that it began earlier today. Reports that she wanted outpatient clinic where they gave her Rocephin and Zofran. Reports that the pain has continued states that she has had no episode of nausea and vomiting. Denies any pain in any other places. Denies any chance of . Denies any other acute complaints. Systemic: Pt denies fatigue, fever/chills, rash. Pt denies weakness, night sweats, weight loss. Neuro: Pt denies headache, visual disturbances, syncope or pre-syncope. HEENT: Pt denies ocular discharge or irritation, otalgia, rhinorrhea, pharyngitis or notable lymphadenopathy. Cardiopulmonary: Pt denies chest pain, SOB, heart palpitations, dyspnea on exertion. Abdominal/GI: Pt denies abdominal pain, diarrhea. : Pt denies dysuria, burning w/ urination, frequency/urgency. Denies new onset urinary or bowel incontinence. MSK: Pt denies myalgia, loss of strength or function in extremities. Neuro: Pt denies new onset weakness, paresthesias. - Related Data Home Medications Medication Instructions Recorded Confirmed oxyCODONE-APAP 10-325MG [Percocet 1 tab PO Q6H PRN 08/29/17 04/21/20 10-325 mg] PARoxetine HCL [Paxil] 40 mg PO DAILY 03/12/18 04/21/20 Topiramate [Topamax] 100 mg PO BID 03/12/18 04/21/20 PARoxetine [Paxil] 20 mg PO DAILY 06/04/18 04/21/20 Atorvastatin [Lipitor] 40 mg PO DAILY 07/16/19 04/21/20 Insulin Glargine,Hum.rec.anlog 40 unit SQ HS 01/26/20 04/21/20 [Basaglar Kwikpen U-100] lisinopriL [Zestril] 10 mg PO DAILY 01/26/20 04/21/20 Montelukast [Singulair] 10 mg PO DAILY 02/09/20 04/21/20 ARIPiprazole [Abilify] 15 mg PO HS 04/04/20 04/21/20 Insulin Lispro [Admelog Solostar] 6 units SQ AC-TID 04/04/20 04/21/20 Mirtazapine 7.5 mg PO HS 04/04/20 04/21/20 OXcarbazepine [Trileptal] 300 mg PO BID 04/04/20 04/21/20 metFORMIN HCL 1,000 mg PO BID 04/04/20 04/21/20 Loratadine 10 mg PO DAILY 04/21/20 04/21/20 Previous Rx's Medication Instructions Recorded SUMAtriptan succinate [Imitrex] 100 mg PO DAILY PRN tab 08/02/17 Allergies Allergy/AdvReac Type Severity Reaction Status Date / Time bupropion HCl Allergy Rash/Hives Verified 04/21/20 23:33 [From Wellbutrin] divalproex sodium Allergy Unknown Verified 04/21/20 23:33 [From Depakote] fentanyl Allergy Swelling Verified 04/21/20 23:33 Iodinated Contrast Media Allergy Anaphylaxis Verified 04/21/20 23:33 [Iodinated Contrast Media - IV Dye] orange juice [[place]] Allergy Rash/Hives Verified 04/21/20 23:33 Sulfa (Sulfonamide Allergy Rash/Hives Verified 04/21/20 23:33 Antibiotics) Penicillins AdvReac Nausea & Verified 04/21/20 23:33 Vomiting Review of Systems ROS Statement: Those systems with pertinent positive or pertinent negative responses have been documented in the HPI. ROS Other: All systems not noted in ROS Statement are negative. 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 History of Any Multi-Drug Resistant Organisms: ESBL Date of last positivie culture/infection: 05/14/17 MDRO Source:: ESBL URINE, Past Surgical History: Bladder Surgery, Section, Cholecystectomy, Hysterectomy, Orthopedic Surgery, Tubal Ligation Additional Past Surgical History / Comment(s): R ovarian cystectomy, laparoscopic surgery for L ovary that had attached to the bowel, D&C, numerous lithotripsies, nephroscopies, cystoscopies and stents to ureters-none in place at this time, L robotic pyeloplasty with post op infection around kidney which then required a picc line/later removed (pt states was not MRSA), L rotator cuff repair, L wrist tendon surgery, colonoscopy Past Anesthesia/Blood Transfusion Reactions: Family History of Problems w/ Anesthesia Additional Past Anesthesia/Blood Transfusion Reaction / Comment(s): dad-hard time waking up due to enzyme problems in liver Past Psychological History: ADD/ADHD, Anxiety, Bipolar, Depression, PTSD Smoking Status: Current every day smoker Past Alcohol Use History: None Reported Past Drug Use History: None Reported - Past Family History Brother(s) Family Medical History: Cancer Additional Family Medical History / Comment(s): testicular Father Family Medical History: Coronary Artery Disease (CAD), CVA/TIA, Diabetes Mellitus, Renal Disease Additional Family Medical History / Comment(s): GLAUCOMA,NEUROPATHY HAD TRIPLE CABG, at 56yrs from renal disease. Mother Family Medical History: Hyperlipidemia Additional Family Medical History / Comment(s): DDD, HAD 3 vessel CABG AGE 54. General Exam - General Exam Comments Initial Comments: Constitutional: NAD, AOX3, Pt has pleasant affect. HEENT: NC/AT, trachea midline, neck supple, no lymphadenopathy. External ears appear normal, without discharge. Mucous membranes moist. Eyes PERRLA, EOM int act. There is no scleral icterus. No pallor noted. Cardiopulmonary: RRR, no murmurs, rubs or gallops, no JVD noted. Lungs CTAB in anterior and posterior guillen. No peripheral edema. Abdominal exam: Abdomen soft and non-distended. Very mild left flank tenderness.. Bowel sounds active in LLQ. No hepatosplenomegaly. No ecchymosis Neuro: CN II-XII grossly intact. No nuchal rigidity. MSK: Full active ROM in upper and lower extremities, 5/5 stregnth. Limitations: no limitations Course Vital Signs 04/21/20 22:42 Temperature 98.0 F Pulse Rate 97 Respiratory 20 Rate Blood Pressure 126/84 O2 Sat by Pulse 100 Oximetry Medical Decision Making - Medical Decision Making 44-year-old female patient to ED for left flank pain. Patient vital signs stable, afebrile. Physical exam displayed mild leukocytosis of 13. Mild hyperglycemia. Hematuria inurine. Plain film negative. Patient declined advanced imaging. Patient discharged with outpatient urology follow-up and return precautions. Case discussed with Dr. William, - Lab Data Result diagrams: 04/21/20 23:36 04/21/20 23:36 Lab Results 04/21/20 04/21/20 04/21/20 Range/Units 23:36 23:36 23:36 WBC 13.3 H (3.8-10.6) k/uL RBC 5.10 (3.80-5.40) m/uL Hgb 15.0 (11.4-16.0) gm/dL Hct 45.6 (34.0-46.0) % MCV 89.4 (80.0-100.0) fL MCH 29.5 (25.0-35.0) pg MCHC 33.0 (31.0-37.0) g/dL RDW 12.5 (11.5-15.5) % Plt Count 321 (150-450) k/uL Neutrophils % 51 % Lymphocytes % 38 % Monocytes % 5 % Eosinophils % 3 % Basophils % 2 % Neutrophils # 6.7 (1.3-7.7) k/uL Lymphocytes # 5.1 H (1.0-4.8) k/uL Monocytes # 0.7 (0-1.0) k/uL Eosinophils # 0.4 (0-0.7) k/uL Basophils # 0.2 (0-0.2) k/uL Sodium 136 L (137-145) mmol/L Potassium 4.5 (3.5-5.1) mmol/L Chloride 105 (98-107) mmol/L Carbon Dioxide 21 L (22-30) mmol/L Anion Gap 10 mmol/L BUN 12 (7-17) mg/dL Creatinine 0.63 (0.52-1.04) mg/dL Est GFR (CKD-EPI)AfAm >90 (>60 ml/min/1.73 sqM) Est GFR (CKD-EPI)NonAf >90 (>60 ml/min/1.73 sqM) Glucose 181 H (74-99) mg/dL Plasma Lactic Acid [place] 1.5 (0.7-2.0) mmol/L Calcium 9.7 (8.4-10.2) mg/dL Total Bilirubin 0.8 (0.2-1.3) mg/dL AST 45 H (14-36) U/L ALT 34 (4-34) U/L Alkaline Phosphatase 115 (38-126) U/L Total Protein 8.3 H (6.3-8.2) g/dL Albumin 4.7 (3.5-5.0) g/dL Lipase 228 (23-300) U/L Urine Color Urine Appearance (Clear) Urine pH (5.0-8.0) Ur Specific [place] (1.001-1.035) Urine Protein (Negative) Urine Glucose (UA) (Negative) Urine Ketones (Negative) Urine Blood (Negative) Urine Nitrite (Negative) Urine Bilirubin (Negative) Urine Urobilinogen (<2.0) mg/dL Ur Leukocyte Esterase (Negative) Urine RBC (0-5) /hpf Urine WBC (0-5) /hpf Ur Squamous Epith Cells (0-4) /hpf Urine Bacteria (None) /hpf Urine Mucus (None) /hpf 04/21/20 Range/Units 23:36 WBC (3.8-10.6) k/uL RBC (3.80-5.40) m/uL Hgb (11.4-16.0) gm/dL Hct (34.0-46.0) % MCV (80.0-100.0) fL MCH (25.0-35.0) pg MCHC (31.0-37.0) g/dL RDW (11.5-15.5) % Plt Count (150-450) k/uL Neutrophils % % Lymphocytes % % Monocytes % % Eosinophils % % Basophils % % Neutrophils # (1.3-7.7) k/uL Lymphocytes # (1.0-4.8) k/uL Monocytes # (0-1.0) k/uL Eosinophils # (0-0.7) k/uL Basophils # (0-0.2) k/uL Sodium (137-145) mmol/L Potassium (3.5-5.1) mmol/L Chloride (98-107) mmol/L Carbon Dioxide (22-30) mmol/L Anion Gap mmol/L BUN (7-17) mg/dL Creatinine (0.52-1.04) mg/dL Est GFR (CKD-EPI)AfAm (>60 ml/min/1.73 sqM) Est GFR (CKD-EPI)NonAf (>60 ml/min/1.73 sqM) Glucose (74-99) mg/dL Plasma Lactic Acid [place] (0.7-2.0) mmol/L Calcium (8.4-10.2) mg/dL Total Bilirubin (0.2-1.3) mg/dL AST (14-36) U/L ALT (4-34) U/L Alkaline Phosphatase (38-126) U/L Total Protein (6.3-8.2) g/dL Albumin (3.5-5.0) g/dL Lipase (23-300) U/L Urine Color Yellow Urine Appearance Cloudy H (Clear) Urine pH 7.0 (5.0-8.0) Ur Specific [place] 1.014 (1.001-1.035) Urine Protein Negative (Negative) Urine Glucose (UA) Negative (Negative) Urine Ketones Negative (Negative) Urine Blood Large H (Negative) Urine Nitrite Negative (Negative) Urine Bilirubin Negative (Negative) Urine Urobilinogen 2.0 (<2.0) mg/dL Ur Leukocyte Esterase Negative (Negative) Urine RBC >182 H (0-5) /hpf Urine WBC 2 (0-5) /hpf Ur Squamous Epith Cells 7 H (0-4) /hpf Urine Bacteria Rare H (None) /hpf Urine Mucus Rare H (None) /hpf Disposition Clinical Impression: Flank pain Disposition: HOME SELF-CARE Condition: Stable Instructions (If sedation given, give patient instructions): Flank Pain (ED) Additional Instructions: Follow up with PCP and urologist tomorrow. Return to ED with any worsening symptoms. Is patient prescribed a controlled substance at d/c from ED?: No Referrals: Melchor Stevens MD [Primary Care Provider] - 1-2 days
[2020-04-22 01:17] VITALS: BP 109/78; PULSE 79; RESP 16; TEMP 97.1
== END 2020-04-22 01:26 | disposition home or self-care (01) ==
LOC: EC 22:40
DX: R10.9 Unspecified abdominal pain (principal); R31.9 Hematuria, unspecified; E11.65 Type 2 diabetes mellitus with hyperglycemia; I10 Essential (primary) hypertension; E78.5 Hyperlipidemia, unspecified; K21.9 Gastro-esophageal reflux disease without esophagitis; F41.9 Anxiety disorder, unspecified; F31.9 Bipolar disorder, unspecified; F90.9 Attention-deficit hyperactivity disorder, unspecified type; F17.200 Nicotine dependence, unspecified, uncomplicated; Z79.4 Long term (current) use of insulin; Z79.899 Other long term (current) drug therapy; Z88.8 Allergy status to other drugs, medicaments and biological substances; Z88.4 Allergy status to anesthetic agent; Z91.041 Radiographic dye allergy status; Z91.018 Allergy to other foods; Z88.0 Allergy status to penicillin; Z88.2 Allergy status to sulfonamides
CPT/HCPCS: 36415; 80053; 83605; 83690; 85025; 81001; 74018; 99284; 96374; 96375; J2270; J2765

== ENCOUNTER 2020-05-03 00:56 | Emergency (ER) | payer OTHER ==
[2020-05-03 01:07] VITALS: BP 128/84; PULSE 95; RESP 18; TEMP 98
[2020-05-03] MEDS ORDERED: KETOROLAC 15 MG/ML 1 ML VIAL IM STA (01:38)
--- NOTE | 2020-05-03 01:38 | ED ---
Abdominal Pain HPI - General Chief Complaint: Abdominal Pain Stated Complaint: Poss kidney stone Time Seen by Provider: 05/03/20 01:09 Source: patient Mode of arrival: ambulatory Limitations: no limitations - History of Present Illness Initial Comments: Leilani is a 44-year-old female very well-known to the emergency department for frequent visits for left-sided flank pain. Patient reports chronic kidney stones which she is scheduled to follow with [facility] for cystography later this week. Patient presents the ER today stating that she is having flank pain and had an episode of nausea and vomiting since came to the ER for pain management. - Related Data Home Medications Medication Instructions Recorded Confirmed oxyCODONE-APAP 10-325MG [Percocet 1 tab PO Q6H PRN 08/29/17 04/21/20 10-325 mg] PARoxetine HCL [Paxil] 40 mg PO DAILY 03/12/18 04/21/20 Topiramate [Topamax] 100 mg PO BID 03/12/18 04/21/20 PARoxetine [Paxil] 20 mg PO DAILY 06/04/18 04/21/20 Atorvastatin [Lipitor] 40 mg PO DAILY 07/16/19 04/21/20 Insulin Glargine,Hum.rec.anlog 40 unit SQ HS 01/26/20 04/21/20 [Basaglar Kwikpen U-100] lisinopriL [Zestril] 10 mg PO DAILY 01/26/20 04/21/20 Montelukast [Singulair] 10 mg PO DAILY 02/09/20 04/21/20 ARIPiprazole [Abilify] 15 mg PO HS 04/04/20 04/21/20 Insulin Lispro [Admelog Solostar] 6 units SQ AC-TID 04/04/20 04/21/20 Mirtazapine 7.5 mg PO HS 04/04/20 04/21/20 OXcarbazepine [Trileptal] 300 mg PO BID 04/04/20 04/21/20 metFORMIN HCL 1,000 mg PO BID 04/04/20 04/21/20 Loratadine 10 mg PO DAILY 04/21/20 04/21/20 Previous Rx's Medication Instructions Recorded SUMAtriptan succinate [Imitrex] 100 mg PO DAILY PRN tab 08/02/17 Allergies Allergy/AdvReac Type Severity Reaction Status Date / Time bupropion HCl Allergy Rash/Hives Verified 05/03/20 01:07 [From Wellbutrin] divalproex sodium Allergy Unknown Verified 05/03/20 01:07 [From Depakote] fentanyl Allergy Swelling Verified 05/03/20 01:07 Iodinated Contrast Media Allergy Anaphylaxis Verified 05/03/20 01:07 [Iodinated Contrast Media - IV Dye] orange juice [[place]] Allergy Rash/Hives Verified 05/03/20 01:07 Sulfa (Sulfonamide Allergy Rash/Hives Verified 05/03/20 01:07 Antibiotics) Penicillins AdvReac Nausea & Verified 05/03/20 01:07 Vomiting Review of Systems ROS Statement: Those systems with pertinent positive or pertinent negative responses have been documented in the HPI. ROS Other: All systems not noted in ROS Statement are negative. 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 History of Any Multi-Drug Resistant Organisms: ESBL Date of last positivie culture/infection: 05/14/17 MDRO Source:: ESBL URINE, Past Surgical History: Bladder Surgery, Section, Cholecystectomy, Hysterectomy, Orthopedic Surgery, Tubal Ligation Additional Past Surgical History / Comment(s): R ovarian cystectomy, laparoscopic surgery for L ovary that had attached to the bowel, D&C, numerous lithotripsies, nephroscopies, cystoscopies and stents to ureters-none in place at this time, L robotic pyeloplasty with post op infection around kidney which then required a picc line/later removed (pt states was not MRSA), L rotator cuff repair, L wrist tendon surgery, colonoscopy Past Anesthesia/Blood Transfusion Reactions: Family History of Problems w/ Anesthesia Additional Past Anesthesia/Blood Transfusion Reaction / Comment(s): dad-hard time waking up due to enzyme problems in liver Past Psychological History: ADD/ADHD, Anxiety, Bipolar, Depression, PTSD Smoking Status: Current every day smoker Past Alcohol Use History: None Reported Past Drug Use History: None Reported - Past Family History Brother(s) Family Medical History: Cancer Additional Family Medical History / Comment(s): testicular Father Family Medical History: Coronary Artery Disease (CAD), CVA/TIA, Diabetes Mellitus, Renal Disease Additional Family Medical History / Comment(s): GLAUCOMA,NEUROPATHY HAD TRIPLE CABG, at 56yrs from renal disease. Mother Family Medical History: Hyperlipidemia Additional Family Medical History / Comment(s): DDD, HAD 3 vessel CABG AGE 54. General Exam - General Exam Comments Initial Comments: Physical Exam GENERAL: Patient is well-developed and well-nourished. Patient is nontoxic and well-hydrated and is in no distress. HENT: Normocephalic, Atraumatic. EYES: PERRL, EOMI PULMONARY: Unlabored respirations. CARDIOVASCULAR: RRR Warm and well perfused extremities ABDOMEN: Non-distended Tenderness to percussion of left flank SKIN: No rashes or bruising : Deferred NEUROLOGIC: Alert and oriented Normal speech Normal gait MUSCULOSKELETAL: Moving all extremities with no apparent injury PSYCHIATRIC: No SI/HI Limitations: no limitations Course Vital Signs 05/03/20 01:03 Temperature 98 F Pulse Rate 95 Respiratory 18 Rate Blood Pressure 128/84 O2 Sat by Pulse 99 Oximetry Medical Decision Making - Medical Decision Making patient was seen and evaluated history is obtained from the patient This patient is very well-known to the ER for frequent visits, she reports chronic kidney stones though within this year my workups including computed tomography scan of her revealed no stones I have a suspicion the patient has drug-seeking behavior and malingering Advised patient we will treat with Toradol for pain management patient apparently walked out of the emergency department prior to receiving any medications. Did not notify any staff she was leaving. Disposition Clinical Impression: Chronic pain, Drug-seeking behavior Disposition: Left Against Medical Advice Referrals: Melchor Stevens MD [Primary Care Provider] - 1-2 days
== END 2020-05-03 02:15 | disposition left against medical advice (07) ==
LOC: EC 00:56
DX: G89.29 Other chronic pain (principal); I10 Essential (primary) hypertension; E78.5 Hyperlipidemia, unspecified; E11.9 Type 2 diabetes mellitus without complications; F41.9 Anxiety disorder, unspecified; F32.9 Major depressive disorder, single episode, unspecified; F43.10 Post-traumatic stress disorder, unspecified; F17.200 Nicotine dependence, unspecified, uncomplicated; Z79.4 Long term (current) use of insulin; Z79.899 Other long term (current) drug therapy; Z88.8 Allergy status to other drugs, medicaments and biological substances; Z88.5 Allergy status to narcotic agent; Z91.041 Radiographic dye allergy status; Z91.018 Allergy to other foods; Z88.2 Allergy status to sulfonamides; Z88.0 Allergy status to penicillin; Z53.29 Procedure and treatment not carried out because of patient's decision for other reasons; Z90.49 Acquired absence of other specified parts of digestive tract; Z98.51 Tubal ligation status; Z90.710 Acquired absence of both cervix and uterus; Z76.5 Malingerer [conscious simulation]; Z87.442 Personal history of urinary calculi
CPT/HCPCS: 99283

== ENCOUNTER 2020-05-26 22:49 | Emergency (ER) | payer OTHER ==
[2020-05-26 23:32] LABS: Basophils # (A) 0.2 k/uL (0-0.2); Basophils % (A) 2 %; Eosinophils # (A) 0.6 k/uL (0-0.7); Eosinophils % (A) 5 %; HCT 38.6 % (34.0-46.0); HGB 13.3 gm/dL (11.4-16.0); Lymphocytes # (A) 4.1 k/uL (1.0-4.8); Lymphocytes % (A) 35 %; MCH 29.9 pg (25.0-35.0); MCHC 34.3 g/dL (31.0-37.0); MCV 86.9 fL (80.0-100.0); Mean Platelet Volume 7.1; Monocytes # (A) 0.4 k/uL (0-1.0); Monocytes % (A) 4 %; Neutrophils # (A) 6.3 k/uL (1.3-7.7); Neutrophils % (A) 53 %; Platelet Count 269 k/uL (150-450); RBC 4.44 m/uL (3.80-5.40); WBC 11.8 k/uL (3.8-10.6)
[2020-05-26 23:39] LABS: Appearance,Urine Cloudy (Clear); Bacteria,Urine Occasional /hpf; Bilirubin,Urine Negative (Negative); Blood,Urine Large (Negative); Calcium Oxalate Crystals,Urine Few /hpf; Color,Urine Yellow; Glucose,Urine (UA) Negative (Negative); Ketones,Urine Negative (Negative); Leukocyte Esterase,Urine Small (Negative); Mucus,Urine Rare /hpf; Nitrite,Urine Negative (Negative); PH, Urine 6.5 (5.0-8.0); Protein,Urine Trace (Negative); RBC,Urine >182 /hpf (0-5); Specific Gravity,Urine 1.018 (1.001-1.035); Squamous Epithelial Cell,Urine 20 /hpf (0-4); Urobilinogen,Urine <2.0 mg/dL (<2.0); WBC,Urine 7 /hpf (0-5)
[2020-05-26 23:40] LABS: ALT 30 U/L (4-34); AST 37 U/L (14-36); African American GFR (CKD) >90 (>60 ml/min/1.73 sqM); Albumin 3.8 g/dL (3.5-5.0); Alkaline Phosphatase 107 U/L (38-126); Amylase 44 U/L (30-110); Anion Gap 9 mmol/L; Blood Urea Nitrogen 8 mg/dL (7-17); Calcium 9.8 mg/dL (8.4-10.2); Carbon Dioxide 20 mmol/L (22-30); Chloride 110 mmol/L (98-107); Glucose 271 mg/dL (74-99); Lipase 284 U/L (23-300); Non-African American GFR(CKD) >90 (>60 ml/min/1.73 sqM); Potassium 3.5 mmol/L (3.5-5.1); Sodium 139 mmol/L (137-145); Total Bilirubin 0.4 mg/dL (0.2-1.3); Total Protein 6.7 g/dL (6.3-8.2)
[2020-05-26] MEDS ORDERED: SODIUM CHLORIDE 0.9% 1,000 ML IV ONE (23:46)
[2020-05-26] MEDS ORDERED: MORPHINE SULFATE 4 MG/ML SYRINGE IV STA (23:46)
[2020-05-27] MEDS ORDERED: LEVOFLOXACIN 500 MG TAB PO STA (00:41)
--- NOTE | 2020-05-27 00:45 | ED ---
Abdominal Pain HPI - General Chief Complaint: Abdominal Pain Stated Complaint: Kidney Stones Time Seen by Provider: 05/26/20 22:55 Source: patient Mode of arrival: ambulatory Limitations: no limitations - History of Present Illness Initial Comments: This patient is a 45-year-old woman with history of chronic flank pain who presents with another flareup of left flank pain which is been going on since earlier today. She states that she had gone to the urgent care around 8 PM where she was told she had kidney stone and given some medication but she states it hasn't helped. She presents here for further evaluation. No fever or chills. No chest pain, dyspnea, palpitations. No change in bowel movements. She has had nausea no vomiting. MD Complaint: flank pain -: hour(s) Location: L flank Radiation: none Migration to: no migration Severity: severe Quality: sharp Consistency: constant Improves With: nothing Worsens With: nothing Associated Symptoms: nausea - Related Data Home Medications Medication Instructions Recorded Confirmed oxyCODONE-APAP 10-325MG [Percocet 1 tab PO Q6H PRN 08/29/17 04/21/20 10-325 mg] PARoxetine HCL [Paxil] 40 mg PO DAILY 03/12/18 04/21/20 Topiramate [Topamax] 100 mg PO BID 03/12/18 04/21/20 PARoxetine [Paxil] 20 mg PO DAILY 06/04/18 04/21/20 Atorvastatin [Lipitor] 40 mg PO DAILY 07/16/19 04/21/20 Insulin Glargine,Hum.rec.anlog 40 unit SQ HS 01/26/20 04/21/20 [Basaglar Kwikpen U-100] lisinopriL [Zestril] 10 mg PO DAILY 01/26/20 04/21/20 Montelukast [Singulair] 10 mg PO DAILY 02/09/20 04/21/20 ARIPiprazole [Abilify] 15 mg PO HS 04/04/20 04/21/20 Insulin Lispro [Admelog Solostar] 6 units SQ AC-TID 04/04/20 04/21/20 Mirtazapine 7.5 mg PO HS 04/04/20 04/21/20 OXcarbazepine [Trileptal] 300 mg PO BID 04/04/20 04/21/20 metFORMIN HCL 1,000 mg PO BID 04/04/20 04/21/20 Loratadine 10 mg PO DAILY 04/21/20 04/21/20 Previous Rx's Medication Instructions Recorded SUMAtriptan succinate [Imitrex] 100 mg PO DAILY PRN tab 08/02/17 Ciprofloxacin HCl [Cipro] 500 mg PO Q12HR 1 Days #6 tab 05/27/20 Allergies Allergy/AdvReac Type Severity Reaction Status Date / Time bupropion HCl Allergy Rash/Hives Verified 05/26/20 22:54 [From Wellbutrin] divalproex sodium Allergy Unknown Verified 05/26/20 22:54 [From Depakote] fentanyl Allergy Swelling Verified 05/26/20 22:54 Iodinated Contrast Media Allergy Anaphylaxis Verified 05/26/20 22:54 [Iodinated Contrast Media - IV Dye] orange juice [[place]] Allergy Rash/Hives Verified 05/26/20 22:54 Sulfa (Sulfonamide Allergy Rash/Hives Verified 05/26/20 22:54 Antibiotics) Penicillins AdvReac Nausea & Verified 05/26/20 22:54 Vomiting Review of Systems ROS Statement: Those systems with pertinent positive or pertinent negative responses have been documented in the HPI. ROS Other: All systems not noted in ROS Statement are negative. Constitutional: Denies: fever, chills Respiratory: Denies: cough, dyspnea Cardiovascular: Denies: chest pain, palpitations, orthopnea, edema Gastrointestinal: Reports: as per HPI, abdominal pain, nausea. Denies: vomiting, diarrhea, constipation Genitourinary: Reports: urgency. 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 History of Any Multi-Drug Resistant Organisms: ESBL Date of last positivie culture/infection: 05/14/17 MDRO Source:: ESBL URINE, Past Surgical History: Bladder Surgery, Section, Cholecystectomy, Hysterectomy, Orthopedic Surgery, Tubal Ligation Additional Past Surgical History / Comment(s): R ovarian cystectomy, laparos copic surgery for L ovary that had attached to the bowel, D&C, numerous lithotripsies, nephroscopies, cystoscopies and stents to ureters-none in place at this time, L robotic pyeloplasty with post op infection around kidney which then required a picc line/later removed (pt states was not MRSA), L rotator cuff repair, L wrist tendon surgery, colonoscopy Past Anesthesia/Blood Transfusion Reactions: Family History of Problems w/ Anesthesia Additional Past Anesthesia/Blood Transfusion Reaction / Comment(s): dad-hard time waking up due to enzyme problems in liver Past Psychological History: ADD/ADHD, Anxiety, Bipolar, Depression, PTSD Smoking Status: Current every day smoker Past Alcohol Use History: None Reported Past Drug Use History: None Reported - Past Family History Brother(s) Family Medical History: Cancer Additional Family Medical History / Comment(s): testicular Father Family Medical History: Coronary Artery Disease (CAD), CVA/TIA, Diabetes Mellitus, Renal Disease Additional Family Medical History / Comment(s): GLAUCOMA,NEUROPATHY HAD TRIPLE CABG, at 56yrs from renal disease. Mother Family Medical History: Hyperlipidemia Additional Family Medical History / Comment(s): DDD, HAD 3 vessel CABG AGE 54. General Exam Limitations: no limitations General appearance: alert, in no apparent distress Head exam: Present: atraumatic, normocephalic Eye exam: Present: normal appearance. Absent: scleral icterus, conjunctival injection ENT exam: Present: normal oropharynx Neck exam: Present: normal inspection Respiratory exam: Present: normal lung sounds bilaterally. Absent: respiratory distress, wheezes, rales, rhonchi, stridor Cardiovascular Exam: Present: regular rate, normal rhythm, normal heart sounds. Absent: systolic murmur, diastolic murmur, rubs, gallop GI/Abdominal exam: Present: soft. Absent: distended, tenderness, guarding, rebound, rigid, mass, pulsatile mass Extremities exam: Present: normal inspection, normal capillary refill. Absent: pedal edema, calf tenderness Back exam: Present: normal inspection, CVA tenderness (L). Absent: CVA tenderness (R), paraspinal tenderness, vertebral tenderness Neurological exam: Present: alert Skin exam: Present: warm, dry, intact, normal color. Absent: rash Course Vital Signs 05/26/20 05/27/20 22:51 01:29 Temperature 98.4 F 98.8 F Pulse Rate 84 91 Respiratory 18 16 Rate Blood Pressure 119/76 106/65 O2 Sat by Pulse 100 97 Oximetry Medical Decision Making - Lab Data Result diagrams: 05/26/20 23:16 05/26/20 23:16 Lab Results 05/26/20 05/26/20 05/26/20 Range/Units 23:16 23:16 23:16 WBC 11.8 H (3.8-10.6) k/uL RBC 4.44 (3.80-5.40) m/uL Hgb 13.3 (11.4-16.0) gm/dL Hct 38.6 (34.0-46.0) % MCV 86.9 (80.0-100.0) fL MCH 29.9 (25.0-35.0) pg MCHC 34.3 (31.0-37.0) g/dL RDW 13.0 (11.5-15.5) % Plt Count 269 (150-450) k/uL MPV 7.1 Neutrophils % 53 % Lymphocytes % 35 % Monocytes % 4 % Eosinophils % 5 % Basophils % 2 % Neutrophils # 6.3 (1.3-7.7) k/uL Lymphocytes # 4.1 (1.0-4.8) k/uL Monocytes # 0.4 (0-1.0) k/uL Eosinophils # 0.6 (0-0.7) k/uL Basophils # 0.2 (0-0.2) k/uL Sodium (137-145) mmol/L Potassium (3.5-5.1) mmol/L Chloride (98-107) mmol/L Carbon Dioxide (22-30) mmol/L Anion Gap mmol/L BUN (7-17) mg/dL Creatinine (0.52-1.04) mg/dL Est GFR (CKD-EPI)AfAm (>60 ml/min/1.73 sqM) Est GFR (CKD-EPI)NonAf (>60 ml/min/1.73 sqM) Glucose (74-99) mg/dL Calcium (8.4-10.2) mg/dL Total Bilirubin (0.2-1.3) mg/dL AST (14-36) U/L ALT (4-34) U/L Alkaline Phosphatase (38-126) U/L Total Protein (6.3-8.2) g/dL Albumin (3.5-5.0) g/dL Amylase (30-110) U/L Lipase (23-300) U/L Urine Color Yellow Urine Appearance Cloudy H (Clear) Urine pH 6.5 (5.0-8.0) Ur Specific [place] 1.018 (1.001-1.035) Urine Protein Trace H (Negative) Urine Glucose (UA) Negative (Negative) Urine Ketones Negative (Negative) Urine Blood Large H (Negative) Urine Nitrite Negative (Negative) Urine Bilirubin Negative (Negative) Urine Urobilinogen <2.0 (<2.0) mg/dL Ur Leukocyte Esterase Small H (Negative) Urine RBC >182 H (0-5) /hpf Urine WBC 7 H (0-5) /hpf Ur Squamous Epith Cells 20 H (0-4) /hpf Calcium Oxalate Crystal Few H (None) /hpf Urine Bacteria Occasional H (None) /hpf Urine Mucus Rare H (None) /hpf Urine HCG, Qual Not Detected (Not Detectd) 05/26/20 Range/Units 23:16 WBC (3.8-10.6) k/uL RBC (3.80-5.40) m/uL Hgb (11.4-16.0) gm/dL Hct (34.0-46.0) % MCV (80.0-100.0) fL MCH (25.0-35.0) pg MCHC (31.0-37.0) g/dL RDW (11.5-15.5) % Plt Count (150-450) k/uL MPV Neutrophils % % Lymphocytes % % Monocytes % % Eosinophils % % Basophils % % Neutrophils # (1.3-7.7) k/uL Lymphocytes # (1.0-4.8) k/uL Monocytes # (0-1.0) k/uL Eosinophils # (0-0.7) k/uL Basophils # (0-0.2) k/uL Sodium 139 (137-145) mmol/L Potassium 3.5 (3.5-5.1) mmol/L Chloride 110 H (98-107) mmol/L Carbon Dioxide 20 L (22-30) mmol/L Anion Gap 9 mmol/L BUN 8 (7-17) mg/dL Creatinine 0.67 (0.52-1.04) mg/dL Est GFR (CKD-EPI)AfAm >90 (>60 ml/min/1.73 sqM) Est GFR (CKD-EPI)NonAf >90 (>60 ml/min/1.73 sqM) Glucose 271 H (74-99) mg/dL Calcium 9.8 (8.4-10.2) mg/dL Total Bilirubin 0.4 (0.2-1.3) mg/dL AST 37 H (14-36) U/L ALT 30 (4-34) U/L Alkaline Phosphatase 107 (38-126) U/L Total Protein 6.7 (6.3-8.2) g/dL Albumin 3.8 (3.5-5.0) g/dL Amylase 44 (30-110) U/L Lipase 284 (23-300) U/L Urine Color Urine Appearance (Clear) Urine pH (5.0-8.0) Ur Specific [place] (1.001-1.035) Urine Protein (Negative) Urine Glucose (UA) (Negative) Urine Ketones (Negative) Urine Blood (Negative) Urine Nitrite (Negative) Urine Bilirubin (Negative) Urine Urobilinogen (<2.0) mg/dL Ur Leukocyte Esterase (Negative) Urine RBC (0-5) /hpf Urine WBC (0-5) /hpf Ur Squamous Epith Cells (0-4) /hpf Calcium Oxalate Crystal (None) /hpf Urine Bacteria (None) /hpf Urine Mucus (None) /hpf Urine HCG, Qual (Not Detectd) Disposition Clinical Impression: Flank pain Disposition: HOME SELF-CARE Condition: Good Instructions (If sedation given, give patient instructions): Flank Pain (ED) Prescriptions: Ciprofloxacin HCl [Cipro] 500 mg PO Q12HR 1 Days #6 tab Is patient prescribed a controlled substance at d/c from ED?: No Referrals: Melchor Stevens MD [Primary Care Provider] - 1-2 days
[2020-05-27] MEDS ORDERED: MORPHINE SULFATE 4 MG/ML SYRINGE IV STA (00:52)
[2020-05-27 01:43] VITALS: BP 106/65; PULSE 91; RESP 16; TEMP 98.8
== END 2020-05-27 01:44 | disposition home or self-care (01) ==
LOC: EC 22:49
DX: R10.9 Unspecified abdominal pain (principal); I10 Essential (primary) hypertension; E11.9 Type 2 diabetes mellitus without complications; E78.5 Hyperlipidemia, unspecified; F32.9 Major depressive disorder, single episode, unspecified; F43.10 Post-traumatic stress disorder, unspecified; F41.9 Anxiety disorder, unspecified; F17.200 Nicotine dependence, unspecified, uncomplicated; Z79.899 Other long term (current) drug therapy; Z79.4 Long term (current) use of insulin; Z88.2 Allergy status to sulfonamides; Z88.0 Allergy status to penicillin; Z91.018 Allergy to other foods; Z91.041 Radiographic dye allergy status; Z88.8 Allergy status to other drugs, medicaments and biological substances; Z88.5 Allergy status to narcotic agent; Z98.51 Tubal ligation status; Z90.49 Acquired absence of other specified parts of digestive tract; Z90.710 Acquired absence of both cervix and uterus; Z87.442 Personal history of urinary calculi
CPT/HCPCS: 36415; 80053; 82150; 83690; 85025; 81001; 81025; 99284; J2270 ×2

== ENCOUNTER 2020-06-06 12:40 | Emergency (ER) | payer OTHER ==
[2020-06-06 12:47] VITALS: RESP 16
[2020-06-06] MEDS ORDERED: SODIUM CHLORIDE 0.9% 1,000 ML IV ONE (13:17)
[2020-06-06] MEDS ORDERED: MORPHINE SULFATE 4 MG/ML SYRINGE IVP STA (13:17)
[2020-06-06] MEDS ORDERED: ONDANSETRON 4 MG/2 ML VIAL IVP STA (13:17)
--- NOTE | 2020-06-06 13:22 | ED ---
General Adult HPI - General Chief complaint: Back Pain/Injury Stated complaint: Kidney Stones Time Seen by Provider: 06/06/20 12:53 Source: patient, RN notes reviewed Mode of arrival: ambulatory Limitations: no limitations - History of Present Illness Initial comments: 45-year-old female presents emergency from chief complaint flank pain. Patient has chronic issues with this. Patient's had multiple stones. Patient has chronic hematuria. Patient states that she saw her primary care physician was placed on Macrobid for possible infection. Reports no fevers or chills. She's had some nausea vomiting no significant diarrhea constipation. Patient states blood sugar has been within normal limits. Denies any other significant complaints of chest female presents with - Related Data Home Medications Medication Instructions Recorded Confirmed oxyCODONE-APAP 10-325MG [Percocet 1 tab PO Q6H PRN 08/29/17 04/21/20 10-325 mg] PARoxetine HCL [Paxil] 40 mg PO DAILY 03/12/18 04/21/20 Topiramate [Topamax] 100 mg PO BID 03/12/18 04/21/20 PARoxetine [Paxil] 20 mg PO DAILY 06/04/18 04/21/20 Atorvastatin [Lipitor] 40 mg PO DAILY 07/16/19 04/21/20 Insulin Glargine,Hum.rec.anlog 40 unit SQ HS 01/26/20 04/21/20 [Basaglar Kwikpen U-100] lisinopriL [Zestril] 10 mg PO DAILY 01/26/20 04/21/20 Montelukast [Singulair] 10 mg PO DAILY 02/09/20 04/21/20 ARIPiprazole [Abilify] 15 mg PO HS 04/04/20 04/21/20 Insulin Lispro [Admelog Solostar] 6 units SQ AC-TID 04/04/20 04/21/20 Mirtazapine 7.5 mg PO HS 04/04/20 04/21/20 OXcarbazepine [Trileptal] 300 mg PO BID 04/04/20 04/21/20 metFORMIN HCL 1,000 mg PO BID 04/04/20 04/21/20 Loratadine 10 mg PO DAILY 04/21/20 04/21/20 Previous Rx's Medication Instructions Recorded SUMAtriptan succinate [Imitrex] 100 mg PO DAILY PRN tab 08/02/17 Ciprofloxacin HCl [Cipro] 500 mg PO Q12HR 1 Days #6 tab 05/27/20 Allergies Allergy/AdvReac Type Severity Reaction Status Date / Time bupropion HCl Allergy Rash/Hives Verified 06/06/20 12:45 [From Wellbutrin] divalproex sodium Allergy Unknown Verified 06/06/20 12:45 [From Depakote] fentanyl Allergy Swelling Verified 06/06/20 12:45 Iodinated Contrast Media Allergy Anaphylaxis Verified 06/06/20 12:45 [Iodinated Contrast Media - IV Dye] orange juice [[place]] Allergy Rash/Hives Verified 06/06/20 12:45 Sulfa (Sulfonamide Allergy Rash/Hives Verified 06/06/20 12:45 Antibiotics) Penicillins AdvReac Nausea & Verified 06/06/20 12:45 Vomiting Review of Systems ROS Statement: Those systems with pertinent positive or pertinent negative responses have been documented in the HPI. ROS Other: All systems not noted in ROS Statement are negative. 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 History of Any Multi-Drug Resistant Organisms: ESBL Date of last positivie culture/infection: 05/14/17 MDRO Source:: ESBL URINE, Past Surgical History: Bladder Surgery, Section, Cholecystectomy, Hysterectomy, Orthopedic Surgery, Tubal Ligation Additional Past Surgical History / Comment(s): R ovarian cystectomy, laparosc opic surgery for L ovary that had attached to the bowel, D&C, numerous lithotripsies, nephroscopies, cystoscopies and stents to ureters-none in place at this time, L robotic pyeloplasty with post op infection around kidney which then required a picc line/later removed (pt states was not MRSA), L rotator cuff repair, L wrist tendon surgery, colonoscopy Past Anesthesia/Blood Transfusion Reactions: Family History of Problems w/ Anesthesia Additional Past Anesthesia/Blood Transfusion Reaction / Comment(s): dad-hard time waking up due to enzyme problems in liver Past Psychological History: ADD/ADHD, Anxiety, Bipolar, Depression, PTSD Smoking Status: Current every day smoker Past Alcohol Use History: None Reported Past Drug Use History: None Reported - Past Family History Brother(s) Family Medical History: Cancer Additional Family Medical History / Comment(s): testicular Father Family Medical History: Coronary Artery Disease (CAD), CVA/TIA, Diabetes Mellitus, Renal Disease Additional Family Medical History / Comment(s): GLAUCOMA,NEUROPATHY HAD TRIPLE CABG, at 56yrs from renal disease. Mother Family Medical History: Hyperlipidemia Additional Family Medical History / Comment(s): DDD, HAD 3 vessel CABG AGE 54. General Exam Limitations: no limitations General appearance: alert, in no apparent distress Head exam: Present: atraumatic, normocephalic, normal inspection Eye exam: Present: normal appearance, PERRL, EOMI. Absent: scleral icterus, conjunctival injection, periorbital swelling ENT exam: Present: normal exam, normal oropharynx, mucous membranes moist Neck exam: Present: normal inspection. Absent: tenderness, meningismus, lymphadenopathy Respiratory exam: Present: normal lung sounds bilaterally. Absent: respiratory distress, wheezes, rales, rhonchi, stridor Cardiovascular Exam: Present: regular rate, normal rhythm, normal heart sounds. Absent: systolic murmur, diastolic murmur, rubs, gallop, clicks GI/Abdominal exam: Present: soft, normal bowel sounds. Absent: distended, tenderness, guarding, rebound, rigid Back exam: Present: CVA tenderness (L). Absent: CVA tenderness (R) Skin exam: Present: warm, dry, intact, normal color. Absent: rash Course Vital Signs 06/06/20 12:45 Temperature 97.8 F Pulse Rate 101 H Respiratory 16 Rate Blood Pressure 137/82 O2 Sat by Pulse 96 Oximetry Medical Decision Making - Medical Decision Making 45-year-old presented for chronic flank pain, chronic kidney stones. Patient has no acute findings no signs of infection. Patient will be discharged in stable condition. Patient has chronic pain meds at home. - Lab Data Result diagrams: 06/06/20 13:31 06/06/20 13:31 Lab Results 06/06/20 06/06/20 06/06/20 Range/Units 13:19 13:31 13:31 WBC 9.6 (3.8-10.6) k/uL RBC 4.82 (3.80-5.40) m/uL Hgb 14.1 (11.4-16.0) gm/dL Hct 41.6 (34.0-46.0) % MCV 86.4 (80.0-100.0) fL MCH 29.3 (25.0-35.0) pg MCHC 33.9 (31.0-37.0) g/dL RDW 12.6 (11.5-15.5) % Plt Count 255 (150-450) k/uL MPV 7.2 Neutrophils % 58 % Lymphocytes % 31 % Monocytes % 4 % Eosinophils % 4 % Basophils % 1 % Neutrophils # 5.6 (1.3-7.7) k/uL Lymphocytes # 3.0 (1.0-4.8) k/uL Monocytes # 0.4 (0-1.0) k/uL Eosinophils # 0.4 (0-0.7) k/uL Basophils # 0.1 (0-0.2) k/uL Sodium 136 L (137-145) mmol/L Potassium 4.1 (3.5-5.1) mmol/L Chloride 108 H (98-107) mmol/L Carbon Dioxide 19 L (22-30) mmol/L Anion Gap 9 mmol/L BUN 7 (7-17) mg/dL Creatinine 0.64 (0.52-1.04) mg/dL Est GFR (CKD-EPI)AfAm >90 (>60 ml/min/1.73 sqM) Est GFR (CKD-EPI)NonAf >90 (>60 ml/min/1.73 sqM) Glucose 290 H (74-99) mg/dL Calcium 9.5 (8.4-10.2) mg/dL Urine Color Yellow Urine Appearance Cloudy H (Clear) Urine pH 6.0 (5.0-8.0) Ur Specific [place] 1.023 (1.001-1.035) Urine Protein Trace H (Negative) Urine Glucose (UA) 2+ H (Negative) Urine Ketones Negative (Negative) Urine Blood Large H (Negative) Urine Nitrite Negative (Negative) Urine Bilirubin Negative (Negative) Urine Urobilinogen 3.0 (<2.0) mg/dL Ur Leukocyte Esterase Trace H (Negative) Urine RBC >182 H (0-5) /hpf Urine WBC 2 (0-5) /hpf Ur Squamous Epith Cells 15 H (0-4) /hpf Calcium Oxalate Crystal Occasional H (None) /hpf Urine Mucus Moderate H (None) /hpf Disposition Clinical Impression: Left flank pain, chronic, Hematuria Disposition: HOME SELF-CARE Condition: Stable Instructions (If sedation given, give patient instructions): Abdominal Pain (ED) Additional Instructions: Please return to the Emergency Department if symptoms worsen or any other concerns. Is patient prescribed a controlled substance at d/c from ED?: No Referrals: Melchor Stevens MD [Primary Care Provider] - 1-2 days Time of Disposition: 13:51
[2020-06-06 13:35] LABS: Basophils # (A) 0.1 k/uL (0-0.2); Basophils % (A) 1 %; Eosinophils # (A) 0.4 k/uL (0-0.7); Eosinophils % (A) 4 %; HCT 41.6 % (34.0-46.0); HGB 14.1 gm/dL (11.4-16.0); Lymphocytes % (A) 31 %; MCH 29.3 pg (25.0-35.0); MCHC 33.9 g/dL (31.0-37.0); MCV 86.4 fL (80.0-100.0); Mean Platelet Volume 7.2; Monocytes # (A) 0.4 k/uL (0-1.0); Monocytes % (A) 4 %; Neutrophils # (A) 5.6 k/uL (1.3-7.7); Neutrophils % (A) 58 %; Platelet Count 255 k/uL (150-450); RBC 4.82 m/uL (3.80-5.40); RDW 12.6 % (11.5-15.5); WBC 9.6 k/uL (3.8-10.6)
[2020-06-06 13:35] LABS: Appearance,Urine Cloudy (Clear); Bilirubin,Urine Negative (Negative); Blood,Urine Large (Negative); Calcium Oxalate Crystals,Urine Occasional /hpf; Color,Urine Yellow; Glucose,Urine (UA) 2+ (Negative); Ketones,Urine Negative (Negative); Leukocyte Esterase,Urine Trace (Negative); Mucus,Urine Moderate /hpf; Nitrite,Urine Negative (Negative); Protein,Urine Trace (Negative); RBC,Urine >182 /hpf (0-5); Specific Gravity,Urine 1.023 (1.001-1.035); Squamous Epithelial Cell,Urine 15 /hpf (0-4); WBC,Urine 2 /hpf (0-5)
[2020-06-06 13:47] LABS: African American GFR (CKD) >90 (>60 ml/min/1.73 sqM); Anion Gap 9 mmol/L; Blood Urea Nitrogen 7 mg/dL (7-17); Calcium 9.5 mg/dL (8.4-10.2); Carbon Dioxide 19 mmol/L (22-30); Chloride 108 mmol/L (98-107); Glucose 290 mg/dL (74-99); Non-African American GFR(CKD) >90 (>60 ml/min/1.73 sqM); Potassium 4.1 mmol/L (3.5-5.1); Sodium 136 mmol/L (137-145)
[2020-06-06 14:06] VITALS: BP 117/63; PULSE 79; TEMP 98
== END 2020-06-06 14:00 | disposition home or self-care (01) ==
LOC: EC 12:40
DX: R10.9 Unspecified abdominal pain (principal); G89.29 Other chronic pain; N20.0 Calculus of kidney; I10 Essential (primary) hypertension; E78.5 Hyperlipidemia, unspecified; E11.9 Type 2 diabetes mellitus without complications; F43.10 Post-traumatic stress disorder, unspecified; F32.9 Major depressive disorder, single episode, unspecified; F41.9 Anxiety disorder, unspecified; F17.200 Nicotine dependence, unspecified, uncomplicated; Z79.899 Other long term (current) drug therapy; Z79.02 Long term (current) use of antithrombotics/antiplatelets; Z79.4 Long term (current) use of insulin; Z88.8 Allergy status to other drugs, medicaments and biological substances; Z91.041 Radiographic dye allergy status; Z88.5 Allergy status to narcotic agent; Z91.018 Allergy to other foods; Z88.2 Allergy status to sulfonamides; Z88.0 Allergy status to penicillin; Z90.49 Acquired absence of other specified parts of digestive tract; Z90.710 Acquired absence of both cervix and uterus; Z98.51 Tubal ligation status; Z90.6 Acquired absence of other parts of urinary tract; Z90.721 Acquired absence of ovaries, unilateral
CPT/HCPCS: 36415; 80048; 85025; 81001; 99284; 96374; 96375; 96361; J2270; J2405

== ENCOUNTER 2020-06-23 18:10 | Emergency (ER) | payer OTHER ==
[2020-06-23 18:18] VITALS: RESP 18
[2020-06-23] MEDS ORDERED: SODIUM CHLORIDE 0.9% 1,000 ML IV STA (19:09)
[2020-06-23] MEDS ORDERED: ONDANSETRON 4 MG/2 ML VIAL IVP STA (19:09)
[2020-06-23] MEDS ORDERED: HYDROmorphone 1 MG/ML 1 ML SYRINGE IVP STA ×2 (19:10→20:38)
[2020-06-23 19:15] LABS: Amorphous Sediment,Urine Rare /hpf; Appearance,Urine Cloudy (Clear); Bacteria,Urine Rare /hpf; Bilirubin,Urine Negative (Negative); Blood,Urine Large (Negative); Color,Urine Yellow; Glucose,Urine (UA) 4+ (Negative); Ketones,Urine Negative (Negative); Leukocyte Esterase,Urine Negative (Negative); Nitrite,Urine Negative (Negative); PH, Urine 7.5 (5.0-8.0); Protein,Urine Negative (Negative); RBC,Urine >182 /hpf (0-5); Specific Gravity,Urine 1.013 (1.001-1.035); Squamous Epithelial Cell,Urine 12 /hpf (0-4); Urobilinogen,Urine <2.0 mg/dL (<2.0); WBC,Urine 4 /hpf (0-5)
[2020-06-23 19:29] LABS: Basophils % (A) 1 %; Eosinophils # (A) 0.3 k/uL (0-0.7); Eosinophils % (A) 4 %; HCT 40.6 % (34.0-46.0); HGB 13.7 gm/dL (11.4-16.0); Lymphocytes # (A) 3.4 k/uL (1.0-4.8); Lymphocytes % (A) 42 %; MCH 29.1 pg (25.0-35.0); MCHC 33.7 g/dL (31.0-37.0); MCV 86.2 fL (80.0-100.0); Mean Platelet Volume 7.8; Monocytes # (A) 0.3 k/uL (0-1.0); Monocytes % (A) 4 %; Neutrophils # (A) 3.9 k/uL (1.3-7.7); Neutrophils % (A) 48 %; Platelet Count 221 k/uL (150-450); RBC 4.71 m/uL (3.80-5.40); RDW 12.9 % (11.5-15.5)
[2020-06-23 19:36] LABS: ALT 34 U/L (4-34); AST 31 U/L (14-36); African American GFR (CKD) >90 (>60 ml/min/1.73 sqM); Albumin 3.5 g/dL (3.5-5.0); Alkaline Phosphatase 106 U/L (38-126); Anion Gap 7 mmol/L; Blood Urea Nitrogen 6 mg/dL (7-17); Calcium 9.2 mg/dL (8.4-10.2); Carbon Dioxide 21 mmol/L (22-30); Chloride 109 mmol/L (98-107); Glucose 300 mg/dL (74-99); Lipase 97 U/L (23-300); Non-African American GFR(CKD) >90 (>60 ml/min/1.73 sqM); Potassium 3.9 mmol/L (3.5-5.1); Sodium 137 mmol/L (137-145); Total Bilirubin 0.4 mg/dL (0.2-1.3); Total Protein 6.4 g/dL (6.3-8.2)
[2020-06-23] MEDS ORDERED: INSULIN ASPART (NovoLOG) 100 UNIT/ML VIAL SQ STA (19:41)
--- NOTE | 2020-06-23 19:52 | ED ---
Abdominal Pain HPI - General Chief Complaint: Abdominal Pain Stated Complaint: Kidney Stone, Elevated Sugar Time Seen by Provider: 06/23/20 19:03 Source: patient Mode of arrival: ambulatory Limitations: no limitations - History of Present Illness Initial Comments: 45-year-old female patient presents to the emergency department today for evaluation of left flank pain, elevated blood sugars. States that she has history of kidney stones and has chronic pain to the left flank. She does follow regularly with urology. States that she did pass 2 small stones a couple days before [place] and the pain returned. She does report hematuria, denies any dysuria or urinary frequency. States she has been having difficulty getting her blood sugars under control. States she's had decreased food and fluid intake due to the severity of her pain. She does report vomiting. Denies any constipation or diarrhea. Patient denies any recent rash, fever, chills, cough, shortness of breath, chest pain, back pain, numbness, tingling, dizziness, weakness, headache, visual changes, or any other complaints. - Related Data Home Medications Medication Instructions Recorded Confirmed oxyCODONE-APAP 10-325MG [Percocet 1 tab PO Q6H PRN 08/29/17 04/21/20 10-325 mg] PARoxetine HCL [Paxil] 40 mg PO DAILY 03/12/18 04/21/20 Topiramate [Topamax] 100 mg PO BID 03/12/18 04/21/20 PARoxetine [Paxil] 20 mg PO DAILY 06/04/18 04/21/20 Atorvastatin [Lipitor] 40 mg PO DAILY 07/16/19 04/21/20 Insulin Glargine,Hum.rec.anlog 40 unit SQ HS 01/26/20 04/21/20 [Basaglar Kwikpen U-100] lisinopriL [Zestril] 10 mg PO DAILY 01/26/20 04/21/20 Montelukast [Singulair] 10 mg PO DAILY 02/09/20 04/21/20 ARIPiprazole [Abilify] 15 mg PO HS 04/04/20 04/21/20 Insulin Lispro [Admelog Solostar] 6 units SQ AC-TID 04/04/20 04/21/20 Mirtazapine 7.5 mg PO HS 04/04/20 04/21/20 OXcarbazepine [Trileptal] 300 mg PO BID 04/04/20 04/21/20 metFORMIN HCL 1,000 mg PO BID 04/04/20 04/21/20 Loratadine 10 mg PO DAILY 04/21/20 04/21/20 Previous Rx's Medication Instructions Recorded SUMAtriptan succinate [Imitrex] 100 mg PO DAILY PRN tab 08/02/17 Ciprofloxacin HCl [Cipro] 500 mg PO Q12HR 1 Days #6 tab 05/27/20 Allergies Allergy/AdvReac Type Severity Reaction Status Date / Time bupropion HCl Allergy Rash/Hives Verified 06/23/20 18:15 [From Wellbutrin] divalproex sodium Allergy Unknown Verified 06/23/20 18:15 [From Depakote] fentanyl Allergy Swelling Verified 06/23/20 18:15 Iodinated Contrast Media Allergy Anaphylaxis Verified 06/23/20 18:15 [Iodinated Contrast Media - IV Dye] orange juice [[place]] Allergy Rash/Hives Verified 06/23/20 18:15 Sulfa (Sulfonamide Allergy Rash/Hives Verified 06/23/20 18:15 Antibiotics) Penicillins AdvReac Nausea & Verified 06/23/20 18:15 Vomiting Review of Systems ROS Statement: Those systems with pertinent positive or pertinent negative responses have been documented in the HPI. ROS Other: All systems not noted in ROS Statement are negative. 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 History of Any Multi-Drug Resistant Organisms: ESBL Date of last positivie culture/infection: 05/14/17 MDRO Source:: ESBL URINE, Past Surgical History: Bladder Surgery, Section, Cholecystectomy, Hysterectomy, Orthopedic Surgery, Tubal Ligation Additional Past Surgical History / Comment(s): R ovarian cystectomy, laparoscopic surgery for L ovary that had attached to the bowel, D&C, numerous lithotripsies, nephroscopies, cystoscopies and stents to ureters-none in place at this time, L robotic pyeloplasty with post op infection around kidney which then required a picc line/later removed (pt states was not MRSA), L rotator cuff repair, L wrist tendon surgery, colonoscopy Past Anesthesia/Blood Transfusion Reactions: Family History of Problems w/ Anesthesia Additional Past Anesthesia/Blood Transfusion Reaction / Comment(s): dad-hard time waking up due to enzyme problems in liver Past Psychological History: ADD/ADHD, Anxiety, Bipolar, Depression, PTSD Smoking Status: Current every day smoker Past Alcohol Use History: None Reported Past Drug Use History: None Reported - Past Family History Brother(s) Family Medical History: Cancer Additional Family Medical History / Comment(s): testicular Father Family Medical History: Coronary Artery Disease (CAD), CVA/TIA, Diabetes Mellitus, Renal Disease Additional Family Medical History / Comment(s): GLAUCOMA,NEUROPATHY HAD TRIPLE CABG, at 56yrs from renal disease. Mother Family Medical History: Hyperlipidemia Additional Family Medical History / Comment(s): DDD, HAD 3 vessel CABG AGE 54. General Exam Limitations: no limitations General appearance: alert, in no apparent distress, other (Physical well- developed, well-nourished adult female patient in no acute distress. Vital signs upon presentation are temperature 98.9F, pulse 86, respirations 18, blood pressure 116/79, pulse ox 100% on room air.) Respiratory exam: Present: normal lung sounds bilaterally. Absent: respiratory distress, wheezes, rales, rhonchi, stridor Cardiovascular Exam: Present: regular rate, normal rhythm, normal heart sounds. Absent: systolic murmur, diastolic murmur, rubs, gallop, clicks GI/Abdominal exam: Present: soft, normal bowel sounds. Absent: distended, tenderness, guarding, rebound, rigid Back exam: Present: CVA tenderness (L). Absent: CVA tenderness (R) Psychiatric exam: Present: normal affect, normal mood Skin exam: Present: warm, dry, intact, normal color. Absent: rash Course Vital Signs 06/23/20 06/23/20 06/23/20 18:15 19:18 21:21 Temperature 98.9 F 98.8 F Pulse Rate 86 79 88 Respiratory 18 18 18 Rate Blood Pressure 116/79 108/63 98/66 O2 Sat by Pulse 100 98 98 Oximetry Medical Decision Making - Medical Decision Making 45-year-old female patient presents to the emergency department today for evaluation of left flank pain, nausea, elevated blood sugars. Physical examination did reveal left CVA tenderness. Labs reviewed and revealed normal white blood cell count. Normal kidney function blood sugar 300. Urinalysis showed 4+ glucose, cloudy appearance, large amount of blood. Patient does have known history of kidney stones and chronic flank pain. She was given IV fluids and pain medication here. Discharged WITH her primary care physician and her urologist as soon as possible. She does take Toradol and Flomax at home on a r egular basis. Return parameters were discussed in detail. She verbalizes understanding and agrees with this plan. - Lab Data Result diagrams: 06/23/20 19:22 06/23/20 19:22 Lab Results 06/23/20 06/23/20 06/23/20 Range/Units 18:57 19:22 19:22 WBC 8.0 (3.8-10.6) k/uL RBC 4.71 (3.80-5.40) m/uL Hgb 13.7 (11.4-16.0) gm/dL Hct 40.6 (34.0-46.0) % MCV 86.2 (80.0-100.0) fL MCH 29.1 (25.0-35.0) pg MCHC 33.7 (31.0-37.0) g/dL RDW 12.9 (11.5-15.5) % Plt Count 221 (150-450) k/uL MPV 7.8 Neutrophils % 48 % Lymphocytes % 42 % Monocytes % 4 % Eosinophils % 4 % Basophils % 1 % Neutrophils # 3.9 (1.3-7.7) k/uL Lymphocytes # 3.4 (1.0-4.8) k/uL Monocytes # 0.3 (0-1.0) k/uL Eosinophils # 0.3 (0-0.7) k/uL Basophils # 0.0 (0-0.2) k/uL Sodium 137 (137-145) mmol/L Potassium 3.9 (3.5-5.1) mmol/L Chloride 109 H (98-107) mmol/L Carbon Dioxide 21 L (22-30) mmol/L Anion Gap 7 mmol/L BUN 6 L (7-17) mg/dL Creatinine 0.61 (0.52-1.04) mg/dL Est GFR (CKD-EPI)AfAm >90 (>60 ml/min/1.73 sqM) Est GFR (CKD-EPI)NonAf >90 (>60 ml/min/1.73 sqM) Glucose 300 H (74-99) mg/dL POC Glucose (mg/dL) (75-99) mg/dL POC Glu Senior Quality Engineer ID Calcium 9.2 (8.4-10.2) mg/dL Total Bilirubin 0.4 (0.2-1.3) mg/dL AST 31 (14-36) U/L ALT 34 (4-34) U/L Alkaline Phosphatase 106 (38-126) U/L Total Protein 6.4 (6.3-8.2) g/dL Albumin 3.5 (3.5-5.0) g/dL Lipase 97 (23-300) U/L Urine Color Yellow Urine Appearance Cloudy H (Clear) Urine pH 7.5 (5.0-8.0) Ur Specific [place] 1.013 (1.001-1.035) Urine Protein Negative (Negative) Urine Glucose (UA) 4+ H (Negative) Urine Ketones Negative (Negative) Urine Blood Large H (Negative) Urine Nitrite Negative (Negative) Urine Bilirubin Negative (Negative) Urine Urobilinogen <2.0 (<2.0) mg/dL Ur Leukocyte Esterase Negative (Negative) Urine RBC >182 H (0-5) /hpf Urine WBC 4 (0-5) /hpf Ur Squamous Epith Cells 12 H (0-4) /hpf Amorphous Sediment Rare H (None) /hpf Urine Bacteria Rare H (None) /hpf 06/23/ Range/Units 21:18 WBC (3.8-10.6) k/uL RBC (3.80-5.40) m/uL Hgb (11.4-16.0) gm/dL Hct (34.0-46.0) % MCV (80.0-100.0) fL MCH (25.0-35.0) pg MCHC (31.0-37.0) g/dL RDW (11.5-15.5) % Plt Count (150-450) k/uL MPV Neutrophils % % Lymphocytes % % Monocytes % % Eosinophils % % Basophils % % Neutrophils # (1.3-7.7) k/uL Lymphocytes # (1.0-4.8) k/uL Monocytes # (0-1.0) k/uL Eosinophils # (0-0.7) k/uL Basophils # (0-0.2) k/uL Sodium (137-145) mmol/L Potassium (3.5-5.1) mmol/L Chloride (98-107) mmol/L Carbon Dioxide (22-30) mmol/L Anion Gap mmol/L BUN (7-17) mg/dL Creatinine (0.52-1.04) mg/dL Est GFR (CKD-EPI)AfAm (>60 ml/min/1.73 sqM) Est GFR (CKD-EPI)NonAf (>60 ml/min/1.73 sqM) Glucose (74-99) mg/dL POC Glucose (mg/dL) 221 H (75-99) mg/dL POC Glu Senior Quality Engineer ID Shiloh Reddy Calcium (8.4-10.2) mg/dL Total Bilirubin (0.2-1.3) mg/dL AST (14-36) U/L ALT (4-34) U/L Alkaline Phosphatase (38-126) U/L Total Protein (6.3-8.2) g/dL Albumin (3.5-5.0) g/dL Lipase (23-300) U/L Urine Color Urine Appearance (Clear) Urine pH (5.0-8.0) Ur Specific [place] (1.001-1.035) Urine Protein (Negative) Urine Glucose (UA) (Negative) Urine Ketones (Negative) Urine Blood (Negative) Urine Nitrite (Negative) Urine Bilirubin (Negative) Urine Urobilinogen (<2.0) mg/dL Ur Leukocyte Esterase (Negative) Urine RBC (0-5) /hpf Urine WBC (0-5) /hpf Ur Squamous Epith Cells (0-4) /hpf Amorphous Sediment (None) /hpf Urine Bacteria (None) /hpf - Radiology Data Radiology results: report reviewed, image reviewed KUB x-ray is obtained. Report was reviewed in its entirety. Impression by Dr. Mack shows nonacute abdomen. No change. Disposition Clinical Impression: Flank pain, Hematuria Disposition: HOME SELF-CARE Condition: Good Instructions (If sedation given, give patient instructions): Hematuria (ED), Flank Pain (ED) Additional Instructions: Increase fluids. Rest. Continue home medications. Follow-up with your primary care physician urologist for further evaluation as soon as possible. Return to the emergency department for any new, worsening, or concerning symptoms. Is patient prescribed a controlled substance at d/c from ED?: No Referrals: Melchor Stevens MD [Primary Care Provider] - 1-2 days Time of Disposition: 21:08
--- NOTE | 2020-06-23 19:55 | XR ---
EXAMINATION TYPE: XR KUB DATE OF EXAM: 06/23/2020 COMPARISON: 04/21/2020 HISTORY: Abdominal pain TECHNIQUE: Single view FINDINGS: There is no sign of intestinal obstruction or pneumoperitoneum. Fecal pattern is normal. Th ere are clips from cholecystectomy. Lung bases are clear. There is no evidence of a mass. IMPRESSION: Nonacute abdomen. No change.
[2020-06-23 21:20] LABS: Glucose,Whole Blood 221 mg/dL (75-99)
[2020-06-23 21:22] VITALS: BP 98/66; PULSE 88; TEMP 98.8
== END 2020-06-23 21:23 | disposition home or self-care (01) ==
LOC: EC 18:10
DX: R10.9 Unspecified abdominal pain (principal); R31.9 Hematuria, unspecified; E11.9 Type 2 diabetes mellitus without complications; G89.29 Other chronic pain; R11.0 Nausea; F41.9 Anxiety disorder, unspecified; F31.9 Bipolar disorder, unspecified; F90.9 Attention-deficit hyperactivity disorder, unspecified type; F43.10 Post-traumatic stress disorder, unspecified; K21.9 Gastro-esophageal reflux disease without esophagitis; E78.5 Hyperlipidemia, unspecified; I10 Essential (primary) hypertension; F17.200 Nicotine dependence, unspecified, uncomplicated; Z79.899 Other long term (current) drug therapy; Z79.4 Long term (current) use of insulin; Z88.0 Allergy status to penicillin; Z88.2 Allergy status to sulfonamides; Z91.041 Radiographic dye allergy status; Z88.5 Allergy status to narcotic agent; Z88.8 Allergy status to other drugs, medicaments and biological substances; Z90.49 Acquired absence of other specified parts of digestive tract; Z87.19 Personal history of other diseases of the digestive system; Z87.442 Personal history of urinary calculi; Z98.890 Other specified postprocedural states
CPT/HCPCS: 36415; 80053; 83690; 85025; 81001; 74018; 99284; 96374; 96375; 96376; 96361; J2405; J1170

== ENCOUNTER 2020-07-18 01:28 | Emergency (ER) | payer OTHER ==
[2020-07-18 01:39] VITALS: BP 139/91; PULSE 95; RESP 19; TEMP 98.1
[2020-07-18 02:15] LABS: Basophils # (A) 0.1 k/uL (0-0.2); Basophils % (A) 1 %; Eosinophils # (A) 0.4 k/uL (0-0.7); Eosinophils % (A) 3 %; HCT 41.9 % (34.0-46.0); HGB 14.7 gm/dL (11.4-16.0); Lymphocytes # (A) 5.6 k/uL (1.0-4.8); Lymphocytes % (A) 44 %; MCH 30.1 pg (25.0-35.0); MCHC 35.1 g/dL (31.0-37.0); MCV 85.9 fL (80.0-100.0); Mean Platelet Volume 7.3; Monocytes # (A) 0.6 k/uL (0-1.0); Monocytes % (A) 5 %; Neutrophils # (A) 5.9 k/uL (1.3-7.7); Neutrophils % (A) 46 %; Platelet Count 252 k/uL (150-450); RBC 4.87 m/uL (3.80-5.40); RDW 12.6 % (11.5-15.5); WBC 12.8 k/uL (3.8-10.6)
[2020-07-18 02:17] LABS: ALT 26 U/L (4-34); AST 24 U/L (14-36); African American GFR (CKD) >90 (>60 ml/min/1.73 sqM); Albumin 4.4 g/dL (3.5-5.0); Alkaline Phosphatase 93 U/L (38-126); Anion Gap 12 mmol/L; Blood Urea Nitrogen 13 mg/dL (7-17); Calcium 9.4 mg/dL (8.4-10.2); Carbon Dioxide 19 mmol/L (22-30); Chloride 104 mmol/L (98-107); Glucose 293 mg/dL (74-99); Non-African American GFR(CKD) >90 (>60 ml/min/1.73 sqM); Potassium 3.8 mmol/L (3.5-5.1); Sodium 135 mmol/L (137-145); Total Bilirubin 0.5 mg/dL (0.2-1.3); Total Protein 7.6 g/dL (6.3-8.2)
[2020-07-18 02:27] LABS: Appearance,Urine Cloudy (Clear); Bilirubin,Urine Negative (Negative); Blood,Urine Large (Negative); Color,Urine Yellow; Glucose,Urine (UA) 4+ (Negative); Ketones,Urine Negative (Negative); Leukocyte Esterase,Urine Negative (Negative); Mucus,Urine Rare /hpf; Nitrite,Urine Negative (Negative); Protein,Urine Negative (Negative); RBC,Urine >182 /hpf (0-5); Squamous Epithelial Cell,Urine 4 /hpf (0-4); Urobilinogen,Urine <2.0 mg/dL (<2.0); WBC,Urine 4 /hpf (0-5)
[2020-07-18] MEDS ORDERED: HYDROmorphone 0.5 MG/0.5 ML SYRINGE IVP STA (02:54)
[2020-07-18] MEDS ORDERED: METOCLOPRAMIDE 5 MG/ML 2 ML VIAL IVP STA (02:54)
--- NOTE | 2020-07-18 03:08 | ED ---
Abdominal Pain HPI - General Chief Complaint: Abdominal Pain Stated Complaint: Kidney Stones Time Seen by Provider: 07/18/20 01:43 Source: patient Mode of arrival: ambulatory - History of Present Illness Complaint: flank pain Onset/Timin -: days(s) Location: L flank Radiation: none Migration to: no migration Severity: severe Quality: cramping, aching Consistency: constant Improves With: nothing Worsens With: nothing Associated Symptoms: denies other symptoms - Related Data Home Medications Medication Instructions Recorded Confirmed oxyCODONE-APAP 10-325MG [Percocet 1 tab PO Q6H PRN 08/29/17 04/21/20 10-325 mg] PARoxetine HCL [Paxil] 40 mg PO DAILY 03/12/18 04/21/20 Topiramate [Topamax] 100 mg PO BID 03/12/18 04/21/20 PARoxetine [Paxil] 20 mg PO DAILY 06/04/18 04/21/20 Atorvastatin [Lipitor] 40 mg PO DAILY 07/16/19 04/21/20 Insulin Glargine,Hum.rec.anlog 40 unit SQ HS 01/26/20 04/21/20 [Basaglar Kwikpen U-100] lisinopriL [Zestril] 10 mg PO DAILY 01/26/20 04/21/20 Montelukast [Singulair] 10 mg PO DAILY 02/09/20 04/21/20 ARIPiprazole [Abilify] 15 mg PO HS 04/04/20 04/21/20 Insulin Lispro [Admelog Solostar] 6 units SQ AC-TID 04/04/20 04/21/20 Mirtazapine 7.5 mg PO HS 04/04/20 04/21/20 OXcarbazepine [Trileptal] 300 mg PO BID 04/04/20 04/21/20 metFORMIN HCL 1,000 mg PO BID 04/04/20 04/21/20 Loratadine 10 mg PO DAILY 04/21/20 04/21/20 Previous Rx's Medication Instructions Recorded SUMAtriptan succinate [Imitrex] 100 mg PO DAILY PRN tab 08/02/17 Ciprofloxacin HCl [Cipro] 500 mg PO Q12HR 1 Days #6 tab 05/27/20 Allergies Allergy/AdvReac Type Severity Reaction Status Date / Time bupropion HCl Allergy Rash/Hives Verified 07/18/20 01:39 [From Wellbutrin] divalproex sodium Allergy Unknown Verified 07/18/20 01:39 [From Depakote] fentanyl Allergy Swelling Verified 07/18/20 01:39 Iodinated Contrast Media Allergy Anaphylaxis Verified 07/18/20 01:39 [Iodinated Contrast Media - IV Dye] orange juice [[place]] Allergy Rash/Hives Verified 07/18/20 01:39 Sulfa (Sulfonamide Allergy Rash/Hives Verified 07/18/20 01:39 Antibiotics) Penicillins AdvReac Nausea & Verified 07/18/20 01:39 Vomiting Review of Systems ROS Statement: Those systems with pertinent positive or pertinent negative responses have been documented in the HPI. ROS Other: All systems not noted in ROS Statement are negative. Constitutional: Denies: fever, chills Respiratory: Denies: cough, dyspnea Cardiovascular: Denies: chest pain, palpitations, edema Gastrointestinal: Reports: abdominal pain, nausea. 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 History of Any Multi-Drug Resistant Organisms: ESBL Date of last positivie culture/infection: 05/14/17 MDRO Source:: ESBL URINE, Past Surgical History: Bladder Surgery, Section, Cholecystectomy, Hysterectomy, Orthopedic Surgery, Tubal Ligation Additional Past Surgical History / Comment(s): R ovarian cystectomy, laparoscopic surgery for L ovary that had attached to the bowel, D&C, numerous lithotripsies, nephroscopies, cystoscopies and stents to ureters-none in place at this time, L robotic pyeloplasty with post op infection around kidney which then required a picc line/later removed (pt states was not MRSA), L rotator cuff repair, L wrist tendon surgery, colonoscopy Past Anesthesia/Blood Transfusion Reactions: Family History of Problems w/ Anesthesia Additional Past Anesthesia/Blood Transfusion Reaction / Comment(s): dad-hard time waking up due to enzyme problems in liver Past Psychological History: ADD/ADHD, Anxiety, Bipolar, Depression, PTSD Smoking Status: Current every day smoker Past Alcohol Use History: None Reported Past Drug Use History: None Reported - Past Family History Brother(s) Family Medical History: Cancer Additional Family Medical History / Comment(s): testicular Father Family Medical History: Coronary Artery Disease (CAD), CVA/TIA, Diabetes Mellitus, Renal Disease Additional Family Medical History / Comment(s): GLAUCOMA,NEUROPATHY HAD TRIPLE CABG, at 56yrs from renal disease. Mother Family Medical History: Hyperlipidemia Additional Family Medical History / Comment(s): DDD, HAD 3 vessel CABG AGE 54. General Exam General appearance: alert, in no apparent distress Head exam: Present: atraumatic, normocephalic Eye exam: Present: normal appearance. Absent: scleral icterus, conjunctival injection ENT exam: Present: normal oropharynx Respiratory exam: Present: normal lung sounds bilaterally. Absent: respiratory distress, wheezes, rales, rhonchi, stridor Cardiovascular Exam: Present: regular rate, normal rhythm, normal heart sounds. Absent: systolic murmur, diastolic murmur, rubs, gallop GI/Abdominal exam: Present: soft. Absent: distended, tenderness, guarding, rebound, rigid, mass Extremities exam: Present: normal inspection, normal capillary refill. Absent: pedal edema, calf tenderness Back exam: Present: normal inspection, CVA tenderness (L). Absent: CVA tenderness (R) Neurological exam: Present: alert Skin exam: Present: warm, dry, intact, normal color. Absent: rash Course Vital Signs 07/18/20 01:36 Temperature 98.1 F Pulse Rate 95 Respiratory 19 Rate Blood Pressure 139/91 O2 Sat by Pulse 100 Oximetry Medical Decision Making - Lab Data Result diagrams: 07/18/20 01:49 07/18/20 01:49 Lab Results 07/18/20 07/18/20 07/18/20 Range/Units 01:49 01:49 01:49 WBC 12.8 H (3.8-10.6) k/uL RBC 4.87 (3.80-5.40) m/uL Hgb 14.7 (11.4-16.0) gm/dL Hct 41.9 (34.0-46.0) % MCV 85.9 (80.0-100.0) fL MCH 30.1 (25.0-35.0) pg MCHC 35.1 (31.0-37.0) g/dL RDW 12.6 (11.5-15.5) % Plt Count 252 (150-450) k/uL MPV 7.3 Neutrophils % 46 % Lymphocytes % 44 % Monocytes % 5 % Eosinophils % 3 % Basophils % 1 % Neutrophils # 5.9 (1.3-7.7) k/uL Lymphocytes # 5.6 H (1.0-4.8) k/uL Monocytes # 0.6 (0-1.0) k/uL Eosinophils # 0.4 (0-0.7) k/uL Basophils # 0.1 (0-0.2) k/uL Manual Slide Review Performed Sodium (137-145) mmol/L Potassium (3.5-5.1) mmol/L Chloride (98-107) mmol/L Carbon Dioxide (22-30) mmol/L Anion Gap mmol/L BUN (7-17) mg/dL Creatinine (0.52-1.04) mg/dL Est GFR (CKD-EPI)AfAm (>60 ml/min/1.73 sqM) Est GFR (CKD-EPI)NonAf (>60 ml/min/1.73 sqM) Glucose (74-99) mg/dL Calcium (8.4-10.2) mg/dL Total Bilirubin (0.2-1.3) mg/dL AST (14-36) U/L ALT (4-34) U/L Alkaline Phosphatase (38-126) U/L Total Protein (6.3-8.2) g/dL Albumin (3.5-5.0) g/dL Urine Color Yellow Urine Appearance Cloudy H (Clear) Urine pH 5.0 (5.0-8.0) Ur Specific [place] 1.020 (1.001-1.035) Urine Protein Negative (Negative) Urine Glucose (UA) 4+ H (Negative) Urine Ketones Negative (Negative) Urine Blood Large H (Negative) Urine Nitrite Negative (Negative) Urine Bilirubin Negative (Negative) Urine Urobilinogen <2.0 (<2.0) mg/dL Ur Leukocyte Esterase Negative (Negative) Urine RBC >182 H (0-5) /hpf Urine WBC 4 (0-5) /hpf Ur Squamous Epith Cells 4 (0-4) /hpf Urine Mucus Rare H (None) /hpf Urine HCG, Qual Not Detected (Not Detectd) 07/18/20 Range/Units 01:49 WBC (3.8-10.6) k/uL RBC (3.80-5.40) m/uL Hgb (11.4-16.0) gm/dL Hct (34.0-46.0) % MCV (80.0-100.0) fL MCH (25.0-35.0) pg MCHC (31.0-37.0) g/dL RDW (11.5-15.5) % Plt Count (150-450) k/uL MPV Neutrophils % % Lymphocytes % % Monocytes % % Eosinophils % % Basophils % % Neutrophils # (1.3-7.7) k/uL Lymphocytes # (1.0-4.8) k/uL Monocytes # (0-1.0) k/uL Eosinophils # (0-0.7) k/uL Basophils # (0-0.2) k/uL Manual Slide Review Sodium 135 L (137-145) mmol/L Potassium 3.8 (3.5-5.1) mmol/L Chloride 104 (98-107) mmol/L Carbon Dioxide 19 L (22-30) mmol/L Anion Gap 12 mmol/L BUN 13 (7-17) mg/dL Creatinine 0.63 (0.52-1.04) mg/dL Est GFR (CKD-EPI)AfAm >90 (>60 ml/min/1.73 sqM) Est GFR (CKD-EPI)NonAf >90 (>60 ml/min/1.73 sqM) Glucose 293 H (74-99) mg/dL Calcium 9.4 (8.4-10.2) mg/dL Total Bilirubin 0.5 (0.2-1.3) mg/dL AST 24 (14-36) U/L ALT 26 (4-34) U/L Alkaline Phosphatase 93 (38-126) U/L Total Protein 7.6 (6.3-8.2) g/dL Albumin 4.4 (3.5-5.0) g/dL Urine Color Urine Appearance (Clear) Urine pH (5.0-8.0) Ur Specific [place] (1.001-1.035) Urine Protein (Negative) Urine Glucose (UA) (Negative) Urine Ketones (Negative) Urine Blood (Negative) Urine Nitrite (Negative) Urine Bilirubin (Negative) Urine Urobilinogen (<2.0) mg/dL Ur Leukocyte Esterase (Negative) Urine RBC (0-5) /hpf Urine WBC (0-5) /hpf Ur Squamous Epith Cells (0-4) /hpf Urine Mucus (None) /hpf Urine HCG, Qual (Not Detectd) Disposition Clinical Impression: Left flank pain, Hematuria Disposition: HOME SELF-CARE Condition: Good Instructions (If sedation given, give patient instructions): Hematuria (ED), Flank Pain (ED) Is patient prescribed a controlled substance at d/c from ED?: No Referrals: Melchor Stevens MD [Primary Care Provider] - 1-2 days
== END 2020-07-18 03:36 | disposition home or self-care (01) ==
LOC: EC 01:28
DX: R10.9 Unspecified abdominal pain (principal); R31.9 Hematuria, unspecified; I10 Essential (primary) hypertension; E11.9 Type 2 diabetes mellitus without complications; E78.5 Hyperlipidemia, unspecified; F41.9 Anxiety disorder, unspecified; F32.9 Major depressive disorder, single episode, unspecified; F43.10 Post-traumatic stress disorder, unspecified; F17.200 Nicotine dependence, unspecified, uncomplicated; Z79.4 Long term (current) use of insulin; Z79.899 Other long term (current) drug therapy; Z88.8 Allergy status to other drugs, medicaments and biological substances; Z88.2 Allergy status to sulfonamides; Z88.0 Allergy status to penicillin; Z91.018 Allergy to other foods; Z91.041 Radiographic dye allergy status; Z88.5 Allergy status to narcotic agent; Z98.51 Tubal ligation status; Z90.710 Acquired absence of both cervix and uterus; Z87.442 Personal history of urinary calculi; Z90.49 Acquired absence of other specified parts of digestive tract
CPT/HCPCS: 36415; 80053; 85025; 81001; 81025; 99284; 96374; 96375; J2765; J1170

== ENCOUNTER 2020-08-08 23:43 | Emergency (ER) | payer OTHER ==
[2020-08-08 23:51] VITALS: RESP 20; TEMP 97.9
[2020-08-09] MEDS ORDERED: ONDANSETRON 4 MG/2 ML VIAL IVP STA (00:06)
[2020-08-09] MEDS ORDERED: SODIUM CHLORIDE 0.9% 1,000 ML IV STA (00:06)
[2020-08-09] MEDS ORDERED: KETOROLAC 15 MG/ML 1 ML VIAL IVP STA (00:06)
[2020-08-09] MEDS ORDERED: HYDROmorphone 1 MG/ML 1 ML SYRINGE IVP STA ×2 (00:06→02:11)
[2020-08-09 00:45] LABS: Basophils # (A) 0.1 k/uL (0-0.2); Basophils % (A) 1 %; Eosinophils # (A) 0.4 k/uL (0-0.7); Eosinophils % (A) 3 %; HCT 40.2 % (34.0-46.0); HGB 13.9 gm/dL (11.4-16.0); Lymphocytes # (A) 4.9 k/uL (1.0-4.8); Lymphocytes % (A) 39 %; MCH 29.7 pg (25.0-35.0); MCHC 34.5 g/dL (31.0-37.0); Monocytes # (A) 0.6 k/uL (0-1.0); Monocytes % (A) 5 %; Neutrophils # (A) 6.3 k/uL (1.3-7.7); Neutrophils % (A) 51 %; Platelet Count 263 k/uL (150-450); RBC 4.68 m/uL (3.80-5.40); RDW 13.3 % (11.5-15.5); WBC 12.4 k/uL (3.8-10.6)
[2020-08-09 01:07] LABS: ALT 33 U/L (4-34); AST 34 U/L (14-36); African American GFR (CKD) >90 (>60 ml/min/1.73 sqM); Albumin 4.3 g/dL (3.5-5.0); Alkaline Phosphatase 93 U/L (38-126); Amylase 51 U/L (30-110); Anion Gap 10 mmol/L; Blood Urea Nitrogen 12 mg/dL (7-17); Calcium 9.7 mg/dL (8.4-10.2); Carbon Dioxide 24 mmol/L (22-30); Chloride 106 mmol/L (98-107); Glucose 186 mg/dL (74-99); Lipase 257 U/L (23-300); Non-African American GFR(CKD) >90 (>60 ml/min/1.73 sqM); Sodium 140 mmol/L (137-145); Total Bilirubin 0.5 mg/dL (0.2-1.3); Total Protein 7.3 g/dL (6.3-8.2)
--- NOTE | 2020-08-09 01:25 | ED ---
Abdominal Pain HPI - General Chief Complaint: Abdominal Pain Stated Complaint: Kidney Stones Time Seen by Provider: 08/08/20 23:56 Source: patient Mode of arrival: ambulatory Limitations: no limitations - History of Present Illness Initial Comments: 45 year-old female patient presents to the emergency department for evaluation of left flank pain and left groin pain. Patient states that the flank pain has been present for the last two days. The groin pain started today. Patient does have history of chronic flank pain and kidney stones and is well known to our department. States that the groin pain is new. States it is tender to the touch. States she does have some nausea, no vomiting. States she has hematuria, but feels she is completely emptying her bladder. Denies any fever or chills. Denies constipation or diarrhea. Has had complete hysterectomy and is not currently sexually active. Denies abnormal vaginal bleeding or discharge. Patient denies any recent rash, cough, shortness of breath, chest pain, numbness, tingling, dizziness, weakness, headache, visual changes, or any other complaints. - Related Data Home Medications Medication Instructions Recorded Confirmed oxyCODONE-APAP 10-325MG [Percocet 1 tab PO Q6H PRN 08/29/17 04/21/20 10-325 mg] PARoxetine HCL [Paxil] 40 mg PO DAILY 03/12/18 04/21/20 Topiramate [Topamax] 100 mg PO BID 03/12/18 04/21/20 PARoxetine [Paxil] 20 mg PO DAILY 06/04/18 04/21/20 Atorvastatin [Lipitor] 40 mg PO DAILY 07/16/19 04/21/20 Insulin Glargine,Hum.rec.anlog 40 unit SQ HS 01/26/20 04/21/20 [Basaglar Kwikpen U-100] lisinopriL [Zestril] 10 mg PO DAILY 01/26/20 04/21/20 Montelukast [Singulair] 10 mg PO DAILY 02/09/20 04/21/20 ARIPiprazole [Abilify] 15 mg PO HS 04/04/20 04/21/20 Insulin Lispro [Admelog Solostar] 6 units SQ AC-TID 04/04/20 04/21/20 Mirtazapine 7.5 mg PO HS 04/04/20 04/21/20 OXcarbazepine [Trileptal] 300 mg PO BID 04/04/20 04/21/20 metFORMIN HCL 1,000 mg PO BID 04/04/20 04/21/20 Loratadine 10 mg PO DAILY 04/21/20 04/21/20 Previous Rx's Medication Instructions Recorded SUMAtriptan succinate [Imitrex] 100 mg PO DAILY PRN tab 08/02/17 Ciprofloxacin HCl [Cipro] 500 mg PO Q12HR 1 Days #6 tab 05/27/20 Allergies Allergy/AdvReac Type Severity Reaction Status Date / Time bupropion HCl Allergy Rash/Hives Verified 08/08/20 23:51 [From Wellbutrin] divalproex sodium Allergy Unknown Verified 08/08/20 23:51 [From Depakote] fentanyl Allergy Swelling Verified 08/08/20 23:51 Iodinated Contrast Media Allergy Anaphylaxis Verified 08/08/20 23:51 [Iodinated Contrast Media - IV Dye] orange juice [[place]] Allergy Rash/Hives Verified 08/08/20 23:51 Sulfa (Sulfonamide Allergy Rash/Hives Verified 08/08/20 23:51 Antibiotics) Penicillins AdvReac Nausea & Verified 08/08/20 23:51 Vomiting Review of Systems ROS Statement: Those systems with pertinent positive or pertinent negative responses have been documented in the HPI. ROS Other: All systems not noted in ROS Statement are negative. 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 History of Any Multi-Drug Resistant Organisms: ESBL Date of last positivie culture/infection: 05/14/17 MDRO Source:: ESBL URINE, Past Surgical History: Bladder Surgery, Section, Cholecystectomy, Hysterectomy, Orthopedic Surgery, Tubal Ligation Additional Past Surgical History / Comment(s): R ovarian cystectomy, laparoscopic surgery for L ovary that had attached to the bowel, D&C, numerous lithotripsies, nephroscopies, cystoscopies and stents to ureters-none in place at this time, L robotic pyeloplasty with post op infection around kidney which then required a picc line/later removed (pt states was not MRSA), L rotator cuff repair, L wrist tendon surgery, colonoscopy Past Anesthesia/Blood Transfusion Reactions: Family History of Problems w/ Anesthesia Additional Past Anesthesia/Blood Transfusion Reaction / Comment(s): dad-hard time waking up due to enzyme problems in liver Past Psychological History: ADD/ADHD, Anxiety, Bipolar, Depression, PTSD Smoking Status: Current every day smoker Past Alcohol Use History: None Reported Past Drug Use History: None Reported - Past Family History Brother(s) Family Medical History: Cancer Additional Family Medical History / Comment(s): testicular Father Family Medical History: Coronary Artery Disease (CAD), CVA/TIA, Diabetes Mellitus, Renal Disease Additional Family Medical History / Comment(s): GLAUCOMA,NEUROPATHY HAD TRIPLE CABG, at 56yrs from renal disease. Mother Family Medical History: Hyperlipidemia Additional Family Medical History / Comment(s): DDD, HAD 3 vessel CABG AGE 54. General Exam Limitations: no limitations General appearance: alert, in no apparent distress, other (This is a well-developed, well-nourished adult female patient in no acute distress. Vital signs upon presentation are temperature 97.9F, pulse 92, respirations 20, blood pressure 105/67, pulse ox 100% on room air.) Eye exam: Present: normal appearance, PERRL, EOMI. Absent: scleral icterus, conjunctival injection, periorbital swelling Respiratory exam: Present: normal lung sounds bilaterally. Absent: respiratory distress, wheezes, rales, rhonchi, stridor Cardiovascular Exam: Present: regular rate, normal rhythm, normal heart sounds. Absent: systolic murmur, diastolic murmur, rubs, gallop, clicks GI/Abdominal exam: Present: soft, tenderness (Left groin tenderness. ), normal bowel sounds, other (Mild swelling noted to the left inguinal region. Tenderness over the area. No erythema. ). Absent: distended, guarding, rebound, rigid Neurological exam: Present: alert, oriented X3, CN II-XII intact Psychiatric exam: Present: normal affect, normal mood Skin exam: Present: warm, dry, intact, normal color. Absent: rash Course Vital Signs 08/08/20 23:48 Temperature 97.9 F Pulse Rate 92 Respiratory 20 Rate Blood Pressure 105/67 O2 Sat by Pulse 100 Oximetry Medical Decision Making - Medical Decision Making 45-year-old female patient presents to the emergency department today for evaluation of left flank pain left groin pain. Patient has history of chronic flank pain and kidney stones. She is well known to our department. Physical examination did reveal left CVA tenderness. Left inguinal region tenderness. Labs reviewed and did reveal mildly elevated white blood cell count at 12.4. There was presence of blood in the urine. No overt signs of infection to the urine. She is afebrile. Ultrasound of the left groin was obtained and showed no evidence for inguinal hernia. Lactic acid was negative. She'll be discharged primary care physician, she has appointment on . Return parameters were discussed in detail. She verbalizes understanding and agrees with this plan. My attending is Dr. [email or web address]. - Lab Data Result diagrams: 08/09/20 00:35 08/09/20 00:35 Lab Results 08/09/20 08/09/20 08/09/20 Range/Units 00:35 00:35 00:35 WBC 12.4 H (3.8-10.6) k/uL RBC 4.68 (3.80-5.40) m/uL Hgb 13.9 (11.4-16.0) gm/dL Hct 40.2 (34.0-46.0) % MCV 86.0 (80.0-100.0) fL MCH 29.7 (25.0-35.0) pg MCHC 34.5 (31.0-37.0) g/dL RDW 13.3 (11.5-15.5) % Plt Count 263 (150-450) k/uL MPV 7.0 Neutrophils % 51 % Lymphocytes % 39 % Monocytes % 5 % Eosinophils % 3 % Basophils % 1 % Neutrophils # 6.3 (1.3-7.7) k/uL Lymphocytes # 4.9 H (1.0-4.8) k/uL Monocytes # 0.6 (0-1.0) k/uL Eosinophils # 0.4 (0-0.7) k/uL Basophils # 0.1 (0-0.2) k/uL Sodium 140 (137-145) mmol/L Potassium 4.0 (3.5-5.1) mmol/L Chloride 106 (98-107) mmol/L Carbon Dioxide 24 (22-30) mmol/L Anion Gap 10 mmol/L BUN 12 (7-17) mg/dL Creatinine 0.72 (0.52-1.04) mg/dL Est GFR (CKD-EPI)AfAm >90 (>60 ml/min/1.73 sqM) Est GFR (CKD-EPI)NonAf >90 (>60 ml/min/1.73 sqM) Glucose 186 H (74-99) mg/dL Plasma Lactic Acid Brant (0.7-2.0) mmol/L Calcium 9.7 (8.4-10.2) mg/dL Total Bilirubin 0.5 (0.2-1.3) mg/dL AST 34 (14-36) U/L ALT 33 (4-34) U/L Alkaline Phosphatase 93 (38-126) U/L Total Protein 7.3 (6.3-8.2) g/dL Albumin 4.3 (3.5-5.0) g/dL Amylase 51 (30-110) U/L Lipase 257 (23-300) U/L Urine Color Yellow Urine Appearance Cloudy H (Clear) Urine pH 7.0 (5.0-8.0) Ur Specific [place] 1.014 (1.001-1.035) Urine Protein Trace H (Negative) Urine Glucose (UA) Negative (Negative) Urine Ketones Negative (Negative) Urine Blood Large H (Negative) Urine Nitrite Negative (Negative) Urine Bilirubin Negative (Negative) Urine Urobilinogen <2.0 (<2.0) mg/dL Ur Leukocyte Esterase Trace H (Negative) Urine RBC >182 H (0-5) /hpf Urine WBC 21 H (0-5) /hpf Ur Squamous Epith Cells 10 H (0-4) /hpf 08/09/20 Range/Units 00:55 WBC (3.8-10.6) k/uL RBC (3.80-5.40) m/uL Hgb (11.4-16.0) gm/dL Hct (34.0-46.0) % MCV (80.0-100.0) fL MCH (25.0-35.0) pg MCHC (31.0-37.0) g/dL RDW (11.5-15.5) % Plt Count (150-450) k/uL MPV Neutrophils % % Lymphocytes % % Monocytes % % Eosinophils % % Basophils % % Neutrophils # (1.3-7.7) k/uL Lymphocytes # (1.0-4.8) k/uL Monocytes # (0-1.0) k/uL Eosinophils # (0-0.7) k/uL Basophils # (0-0.2) k/uL Sodium (137-145) mmol/L Potassium (3.5-5.1) mmol/L Chloride (98-107) mmol/L Carbon Dioxide (22-30) mmol/L Anion Gap mmol/L BUN (7-17) mg/dL Creatinine (0.52-1.04) mg/dL Est GFR (CKD-EPI)AfAm (>60 ml/min/1.73 sqM) Est GFR (CKD-EPI)NonAf (>60 ml/min/1.73 sqM) Glucose (74-99) mg/dL Plasma Lactic Acid [place] 1.3 (0.7-2.0) mmol/L Calcium (8.4-10.2) mg/dL Total Bilirubin (0.2-1.3) mg/dL AST (14-36) U/L ALT (4-34) U/L Alkaline Phosphatase (38-126) U/L Total Protein (6.3-8.2) g/dL Albumin (3.5-5.0) g/dL Amylase (30-110) U/L Lipase (23-300) U/L Urine Color Urine Appearance (Clear) Urine pH (5.0-8.0) Ur Specific [place] (1.001-1.035) Urine Protein (Negative) Urine Glucose (UA) (Negative) Urine Ketones (Negative) Urine Blood (Negative) Urine Nitrite (Negative) Urine Bilirubin (Negative) Urine Urobilinogen (<2.0) mg/dL Ur Leukocyte Esterase (Negative) Urine RBC (0-5) /hpf Urine WBC (0-5) /hpf Ur Squamous Epith Cells (0-4) /hpf - Radiology Data Radiology results: report reviewed, image reviewed Ultrasound of the left groin is obtained. Report was reviewed in its entirety. Impression by Dr. Dallas shows no left inguinal hernia detected. Disposition Clinical Impression: Left flank pain, Left groin pain Disposition: HOME SELF-CARE Condition: Good Instructions (If sedation given, give patient instructions): Abdominal Pain (ED), Flank Pain (ED) Additional Instructions: Follow-up with your primary care physician for recheck in 1-2 days. Take all medications for symptom relief. Return for any new, worsening, or concerning symptoms. Is patient prescribed a controlled substance at d/c from ED?: No Referrals: Melchor Stevens MD [Primary Care Provider] - 1-2 days Time of Disposition: 02:07
--- NOTE | 2020-08-09 01:28 | US ---
EXAM: US Abdomen Limited CLINICAL HISTORY: ITS.REASON US Reason: pain; poss inguinal hernia TECHNIQUE: Real-time ultrasound of the abdomen with image documentation. COMPARISON: No previous study. FINDINGS: Soft tissues: Imaging of the left inguinal region reveals no evidence of a hernia. Soft tissues are unremarkable. IMPRESSION: No left inguinal hernia is detected.
[2020-08-09 01:32] LABS: Appearance,Urine Cloudy (Clear); Bilirubin,Urine Negative (Negative); Blood,Urine Large (Negative); Color,Urine Yellow; Glucose,Urine (UA) Negative (Negative); Ketones,Urine Negative (Negative); Leukocyte Esterase,Urine Trace (Negative); Nitrite,Urine Negative (Negative); Protein,Urine Trace (Negative); RBC,Urine >182 /hpf (0-5); Specific Gravity,Urine 1.014 (1.001-1.035); Squamous Epithelial Cell,Urine 10 /hpf (0-4); Urobilinogen,Urine <2.0 mg/dL (<2.0); WBC,Urine 21 /hpf (0-5)
[2020-08-09 02:37] VITALS: BP 107/69; PULSE 87
== END 2020-08-09 02:37 | disposition home or self-care (01) ==
LOC: EC 23:43
DX: R10.32 Left lower quadrant pain (principal); R11.0 Nausea; R31.9 Hematuria, unspecified; D72.829 Elevated white blood cell count, unspecified; F41.9 Anxiety disorder, unspecified; F31.9 Bipolar disorder, unspecified; F90.9 Attention-deficit hyperactivity disorder, unspecified type; F17.200 Nicotine dependence, unspecified, uncomplicated; E11.9 Type 2 diabetes mellitus without complications; K21.9 Gastro-esophageal reflux disease without esophagitis; F43.10 Post-traumatic stress disorder, unspecified; E78.5 Hyperlipidemia, unspecified; Z79.4 Long term (current) use of insulin; Z79.899 Other long term (current) drug therapy; Z88.0 Allergy status to penicillin; Z88.2 Allergy status to sulfonamides; Z88.8 Allergy status to other drugs, medicaments and biological substances; Z91.041 Radiographic dye allergy status; Z91.018 Allergy to other foods; Z90.49 Acquired absence of other specified parts of digestive tract; Z90.710 Acquired absence of both cervix and uterus; Z98.51 Tubal ligation status
CPT/HCPCS: 36415; 80053; 82150; 83605; 83690; 85025; 81001; 87086; 76882; 99284; 96374; 96375 ×2; 96376; 96361; J2405; J1170; J1885

== ENCOUNTER 2020-08-18 00:01 | Emergency (ER) | payer OTHER ==
[2020-08-18 00:11] VITALS: TEMP 97.7
[2020-08-18] MEDS ORDERED: KETOROLAC 15 MG/ML 1 ML VIAL IVP STA (00:24)
[2020-08-18] MEDS ORDERED: HYDROmorphone 1 MG/ML 1 ML SYRINGE IVP STA ×2 (00:24→02:08)
[2020-08-18] MEDS ORDERED: ONDANSETRON 4 MG/2 ML VIAL IVP STA (00:24)
[2020-08-18] MEDS ORDERED: PANTOPRAZOLE 40 MG/10 ML VIAL IVP STA (00:24)
[2020-08-18] MEDS ORDERED: SODIUM CHLORIDE 0.9% 1,000 ML IV STA ×2 (00:24→02:08)
--- NOTE | 2020-08-18 01:07 | ED ---
Abdominal Pain HPI - General Chief Complaint: Abdominal Pain Stated Complaint: Kidney Stones Time Seen by Provider: 08/18/20 00:17 Source: patient Mode of arrival: ambulatory Limitations: no limitations - Related Data Home Medications Medication Instructions Recorded Confirmed oxyCODONE-APAP 10-325MG [Percocet 1 tab PO Q6H PRN 08/29/17 04/21/20 10-325 mg] PARoxetine HCL [Paxil] 40 mg PO DAILY 03/12/18 04/21/20 Topiramate [Topamax] 100 mg PO BID 03/12/18 04/21/20 PARoxetine [Paxil] 20 mg PO DAILY 06/04/18 04/21/20 Atorvastatin [Lipitor] 40 mg PO DAILY 07/16/19 04/21/20 Insulin Glargine,Hum.rec.anlog 40 unit SQ HS 01/26/20 04/21/20 [Basaglar Kwikpen U-100] lisinopriL [Zestril] 10 mg PO DAILY 01/26/20 04/21/20 Montelukast [Singulair] 10 mg PO DAILY 02/09/20 04/21/20 ARIPiprazole [Abilify] 15 mg PO HS 04/04/20 04/21/20 Insulin Lispro [Admelog Solostar] 6 units SQ AC-TID 04/04/20 04/21/20 Mirtazapine 7.5 mg PO HS 04/04/20 04/21/20 OXcarbazepine [Trileptal] 300 mg PO BID 04/04/20 04/21/20 metFORMIN HCL 1,000 mg PO BID 04/04/20 04/21/20 Loratadine 10 mg PO DAILY 04/21/20 04/21/20 Previous Rx's Medication Instructions Recorded SUMAtriptan succinate [Imitrex] 100 mg PO DAILY PRN tab 08/02/17 Ciprofloxacin HCl [Cipro] 500 mg PO Q12HR 1 Days #6 tab 05/27/20 Allergies Allergy/AdvReac Type Severity Reaction Status Date / Time bupropion HCl Allergy Rash/Hives Verified 08/18/20 00:11 [From Wellbutrin] divalproex sodium Allergy Unknown Verified 08/18/20 00:11 [From Depakote] fentanyl Allergy Swelling Verified 08/18/20 00:11 Iodinated Contrast Media Allergy Anaphylaxis Verified 08/18/20 00:11 [Iodinated Contrast Media - IV Dye] orange juice [[place]] Allergy Rash/Hives Verified 08/18/20 00:11 Sulfa (Sulfonamide Allergy Rash/Hives Verified 08/18/20 00:11 Antibiotics) Penicillins AdvReac Nausea & Verified 08/18/20 00:11 Vomiting Review of Systems ROS Statement: Those systems with pertinent positive or pertinent negative responses have been documented in the HPI. ROS Other: All systems not noted in ROS Statement are negative. 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 History of Any Multi-Drug Resistant Organisms: ESBL Date of last positivie culture/infection: 05/14/17 MDRO Source:: ESBL URINE, Past Surgical History: Bladder Surgery, Section, Cholecystectomy, Hysterectomy, Orthopedic Surgery, Tubal Ligation Additional Past Surgical History / Comment(s): R ovarian cystectomy, laparoscopic surgery for L ovary that had attached to the bowel, D&C, numerous lithotripsies, nephroscopies, cystoscopies and stents to ureters-none in place at this time, L robotic pyeloplasty with post op infection around kidney which then required a picc line/later removed (pt states was not MRSA), L rotator cuff repair, L wrist tendon surgery, colonoscopy Past Anesthesia/Blood Transfusion Reactions: Family History of Problems w/ Anesthesia Additional Past Anesthesia/Blood Transfusion Reaction / Comment(s): dad-hard time waking up due to enzyme problems in liver Past Psychological History: ADD/ADHD, Anxiety, Bipolar, Depression, PTSD Smoking Status: Current every day smoker Past Alcohol Use History: None Reported Past Drug Use History: None Reported - Past Family History Brother(s) Family Medical History: Cancer Additional Family Medical History / Comment(s): testicular Father Family Medical History: Coronary Artery Disease (CAD), CVA/TIA, Diabetes Mellitus, Renal Disease Additional Family Medical History / Comment(s): GLAUCOMA,NEUROPATHY HAD TRIPLE CABG, at 56yrs from renal disease. Mother Family Medical History: Hyperlipidemia Additional Family Medical History / Comment(s): DDD, HAD 3 vessel CABG AGE 54. General Exam Limitations: no limitations Course Vital Signs 08/18/20 00:09 Temperature 97.7 F Pulse Rate 115 H Respiratory 18 Rate Blood Pressure 124/81 O2 Sat by Pulse 97 Oximetry Medical Decision Making - Lab Data Result diagrams: 08/18/20 00:46 08/18/20 00:46 Lab Results 08/18/20 08/18/20 08/18/20 Range/Units 00:46 00:46 00:46 WBC 17.2 H (3.8-10.6) k/uL RBC 4.80 (3.80-5.40) m/uL Hgb 14.2 (11.4-16.0) gm/dL Hct 41.9 (34.0-46.0) % MCV 87.3 (80.0-100.0) fL MCH 29.5 (25.0-35.0) pg MCHC 33.7 (31.0-37.0) g/dL RDW 12.9 (11.5-15.5) % Plt Count 292 (150-450) k/uL MPV 7.2 Neutrophils % 67 % Lymphocytes % 25 % Monocytes % 5 % Eosinophils % 3 % Basophils % 0 % Neutrophils # 11.5 H (1.3-7.7) k/uL Lymphocytes # 4.2 (1.0-4.8) k/uL Monocytes # 0.8 (0-1.0) k/uL Eosinophils # 0.5 (0-0.7) k/uL Basophils # 0.1 (0-0.2) k/uL Sodium 137 (137-145) mmol/L Potassium 4.2 (3.5-5.1) mmol/L Chloride 105 (98-107) mmol/L Carbon Dioxide 20 L (22-30) mmol/L Anion Gap 12 mmol/L BUN 11 (7-17) mg/dL Creatinine 0.62 (0.52-1.04) mg/dL Est GFR (CKD-EPI)AfAm >90 (>60 ml/min/1.73 sqM) Est GFR (CKD-EPI)NonAf >90 (>60 ml/min/1.73 sqM) Glucose 355 H (74-99) mg/dL Calcium 9.3 (8.4-10.2) mg/dL Total Bilirubin 0.6 (0.2-1.3) mg/dL AST 25 (14-36) U/L ALT 37 H (4-34) U/L Alkaline Phosphatase 112 (38-126) U/L Creatine Kinase 46 (30-135) U/L Total Protein 6.8 (6.3-8.2) g/dL Albumin 4.0 (3.5-5.0) g/dL Amylase 63 (30-110) U/L Lipase 386 H (23-300) U/L Urine Color Yellow Urine Appearance Clear (Clear) Urine pH 6.5 (5.0-8.0) Ur Specific [place] 1.027 (1.001-1.035) Urine Protein Trace H (Negative) Urine Glucose (UA) 4+ H (Negative) Urine Ketones Trace H (Negative) Urine Blood Large H (Negative) Urine Nitrite Negative (Negative) Urine Bilirubin Negative (Negative) Urine Urobilinogen <2.0 (<2.0) mg/dL Ur Leukocyte Esterase Negative (Negative) Urine RBC >182 H (0-5) /hpf Urine WBC 4 (0-5) /hpf Ur Squamous Epith Cells 3 (0-4) /hpf Disposition Clinical Impression: Abdominal colic, Ureterolithiasis, Left flank pain Disposition: HOME SELF-CARE Condition: Fair Is patient prescribed a controlled substance at d/c from ED?: No Referrals: Melchor Stevens MD [Primary Care Provider] - 1-2 days
--- NOTE | 2020-08-18 01:14 | XR ---
EXAM: XR Abdomen, 1 View CLINICAL HISTORY: ITS.REASON XR Reason: abdominal pain TECHNIQUE: Frontal supine view of the abdomen/pelvis. COMPARISON: No relevant prior studies available. FINDINGS: Intraperitoneal space: No pneumoperitoneum is seen under the diaphragm. Gastrointestinal tract: There are scattered gas fluid levels in nondilated colon and small bowel suggesting ileus and/or gastroenteritis. Organs: There are cholecystectomy clips in the right upper quadrant. Bones/joints: Unremarkable. IMPRESSION: 1. There are scattered gas fluid levels in nondilated colon and small bowel suggesting ileus and/or gastroenteritis. 2. No pneumoperitoneum is seen under the diaphragm.
[2020-08-18 01:38] LABS: Basophils # (A) 0.1 k/uL (0-0.2); Basophils % (A) 0 %; Eosinophils # (A) 0.5 k/uL (0-0.7); Eosinophils % (A) 3 %; HCT 41.9 % (34.0-46.0); HGB 14.2 gm/dL (11.4-16.0); Lymphocytes # (A) 4.2 k/uL (1.0-4.8); Lymphocytes % (A) 25 %; MCH 29.5 pg (25.0-35.0); MCHC 33.7 g/dL (31.0-37.0); MCV 87.3 fL (80.0-100.0); Mean Platelet Volume 7.2; Monocytes # (A) 0.8 k/uL (0-1.0); Monocytes % (A) 5 %; Neutrophils # (A) 11.5 k/uL (1.3-7.7); Neutrophils % (A) 67 %; Platelet Count 292 k/uL (150-450); RDW 12.9 % (11.5-15.5); WBC 17.2 k/uL (3.8-10.6)
[2020-08-18 01:42] LABS: Appearance,Urine Clear (Clear); Bilirubin,Urine Negative (Negative); Blood,Urine Large (Negative); Color,Urine Yellow; Glucose,Urine (UA) 4+ (Negative); Ketones,Urine Trace (Negative); Leukocyte Esterase,Urine Negative (Negative); Nitrite,Urine Negative (Negative); PH, Urine 6.5 (5.0-8.0); Protein,Urine Trace (Negative); RBC,Urine >182 /hpf (0-5); Specific Gravity,Urine 1.027 (1.001-1.035); Squamous Epithelial Cell,Urine 3 /hpf (0-4); Urobilinogen,Urine <2.0 mg/dL (<2.0); WBC,Urine 4 /hpf (0-5)
[2020-08-18 01:47] LABS: ALT 37 U/L (4-34); AST 25 U/L (14-36); African American GFR (CKD) >90 (>60 ml/min/1.73 sqM); Alkaline Phosphatase 112 U/L (38-126); Amylase 63 U/L (30-110); Anion Gap 12 mmol/L; Blood Urea Nitrogen 11 mg/dL (7-17); Calcium 9.3 mg/dL (8.4-10.2); Carbon Dioxide 20 mmol/L (22-30); Chloride 105 mmol/L (98-107); Creatine Kinase 46 U/L (30-135); Glucose 355 mg/dL (74-99); Lipase 386 U/L (23-300); Non-African American GFR(CKD) >90 (>60 ml/min/1.73 sqM); Potassium 4.2 mmol/L (3.5-5.1); Sodium 137 mmol/L (137-145); Total Bilirubin 0.6 mg/dL (0.2-1.3); Total Protein 6.8 g/dL (6.3-8.2)
[2020-08-18] MEDS ORDERED: diphenhydrAMINE 50 MG/ML 1 ML VIAL IVP STA (02:08)
[2020-08-18 02:25] VITALS: BP 109/56; PULSE 75; RESP 16
== END 2020-08-18 03:00 | disposition home or self-care (01) ==
LOC: EC 00:01
DX: N20.1 Calculus of ureter (principal); E11.9 Type 2 diabetes mellitus without complications; I10 Essential (primary) hypertension; E78.5 Hyperlipidemia, unspecified; K21.9 Gastro-esophageal reflux disease without esophagitis; F90.9 Attention-deficit hyperactivity disorder, unspecified type; F41.9 Anxiety disorder, unspecified; F31.9 Bipolar disorder, unspecified; F17.200 Nicotine dependence, unspecified, uncomplicated; Z79.4 Long term (current) use of insulin; Z79.51 Long term (current) use of inhaled steroids; Z79.899 Other long term (current) drug therapy; Z88.8 Allergy status to other drugs, medicaments and biological substances; Z91.041 Radiographic dye allergy status; Z88.0 Allergy status to penicillin; Z88.2 Allergy status to sulfonamides; Z88.5 Allergy status to narcotic agent
CPT/HCPCS: 36415; 80053; 82150; 82550; 83690; 85025; 81001; 74018; 99284; 96374; 96375 ×4; 96376; 96361 ×3; J1200; J2405; J1170; J1885; C9113

== ENCOUNTER 2020-08-29 20:46 | Emergency (ER) | payer OTHER ==
[2020-08-29 20:50] VITALS: TEMP 98.3
[2020-08-29 21:37] LABS: Basophils # (A) 0.2 k/uL (0-0.2); Basophils % (A) 1 %; Eosinophils # (A) 0.8 k/uL (0-0.7); Eosinophils % (A) 5 %; HCT 43.5 % (34.0-46.0); HGB 14.9 gm/dL (11.4-16.0); Lymphocytes # (A) 5.4 k/uL (1.0-4.8); Lymphocytes % (A) 34 %; MCH 30.1 pg (25.0-35.0); MCHC 34.3 g/dL (31.0-37.0); MCV 87.9 fL (80.0-100.0); Mean Platelet Volume 7.4; Monocytes # (A) 0.6 k/uL (0-1.0); Monocytes % (A) 4 %; Neutrophils # (A) 8.9 k/uL (1.3-7.7); Neutrophils % (A) 55 %; Platelet Count 241 k/uL (150-450); RBC 4.95 m/uL (3.80-5.40); RDW 12.8 % (11.5-15.5); WBC 16.1 k/uL (3.8-10.6)
[2020-08-29] MEDS ORDERED: HYDROmorphone 0.5 MG/0.5 ML SYRINGE IVP STA (21:47)
[2020-08-29] MEDS ORDERED: SODIUM CHLORIDE 0.9% 1,000 ML IV ONE (21:47)
[2020-08-29] MEDS ORDERED: diphenhydrAMINE 50 MG/ML 1 ML VIAL IVP STA (21:50)
[2020-08-29] MEDS ORDERED: methylPREDNISolone SOD SUCCI 125 MG/2 ML VIAL IV STA (21:50)
[2020-08-29] MEDS ORDERED: FAMOTIDINE 20 MG/2 ML VIAL IV STA (21:50)
[2020-08-29 21:59] LABS: Appearance,Urine Clear (Clear); Bacteria,Urine Rare /hpf; Bilirubin,Urine Negative (Negative); Blood,Urine Negative (Negative); Budding Yeast,Urine Rare /hpf; Color,Urine Light Yellow; Glucose,Urine (UA) 4+ (Negative); Ketones,Urine Negative (Negative); Leukocyte Esterase,Urine Trace (Negative); Nitrite,Urine Negative (Negative); PH, Urine 5.5 (5.0-8.0); Protein,Urine Negative (Negative); RBC,Urine 3 /hpf (0-5); Specific Gravity,Urine 1.029 (1.001-1.035); Squamous Epithelial Cell,Urine 3 /hpf (0-4); Urobilinogen,Urine <2.0 mg/dL (<2.0); WBC,Urine 3 /hpf (0-5)
[2020-08-29 22:05] LABS: ALT 34 U/L (4-34); AST 28 U/L (14-36); African American GFR (CKD) >90 (>60 ml/min/1.73 sqM); Albumin 4.7 g/dL (3.5-5.0); Alkaline Phosphatase 127 U/L (38-126); Amylase 59 U/L (30-110); Anion Gap 14 mmol/L; Blood Urea Nitrogen 12 mg/dL (7-17); Calcium 9.8 mg/dL (8.4-10.2); Carbon Dioxide 19 mmol/L (22-30); Chloride 100 mmol/L (98-107); Glucose 450 mg/dL (74-99); Lipase 493 U/L (23-300); Non-African American GFR(CKD) >90 (>60 ml/min/1.73 sqM); Potassium 3.9 mmol/L (3.5-5.1); Sodium 133 mmol/L (137-145); Total Bilirubin 0.7 mg/dL (0.2-1.3); Total Protein 7.6 g/dL (6.3-8.2)
[2020-08-29] MEDS ORDERED: INSULIN REGULAR 100 UNIT/ML VIAL (IV) IV ONE (22:27)
--- NOTE | 2020-08-29 22:57 | CT ---
EXAMINATION TYPE: CT abdomen pelvis w con DATE OF EXAM: 08/29/2020 COMPARISON: January 25, 2020 HISTORY: LLQ pain CT DLP: 987.9 mGycm Automated exposure control for dose reduction was used. CONTRAST: Performed with IV Contrast, patient injected with 100 mL of Isovue 300. Images obtained from the diaphragm to the floor the pelvis with IV contrast. Lung bases are clear of consolidation. There is no pleural effusion. Heart size is normal. There is n o pericardial effusion. Liver spleen stomach pancreas appear normal. The bile ducts are not dilated. There are clips from cholecystectomy. There is no adrenal mass. Kidneys show satisfactory contrast opacification. There is no hydronephrosi s. Ureters are not dilated. Delayed images show normal renal excretion. There is no retroperitoneal a denopathy. Appendix is posterior and appears normal. Bladder distends smoothly. There is no inguinal hernia. There is no free fluid in the pelvis. There is no evidence of a pelvic mass. Uterus is absent . Lumbar vertebra have normal alignment. Posterior elements are intact. There is no compression fractur e. The bony pelvis is intact. Hip joints are intact. There is no mesenteric edema. There is no ascites or free air. There is no bowel obstruction. There is 3 mm calculus interpolar right kidney. IMPRESSION: Normal appendix. Nonobstructing right renal calculus appears new compared to old exam. No evidence of diverticulitis or any significant diverticulosis.
--- NOTE | 2020-08-29 23:15 | ED ---
Abdominal Pain HPI - General Chief Complaint: Abdominal Pain Stated Complaint: LLQ pain Time Seen by Provider: 08/29/20 21:12 Source: patient, family Mode of arrival: ambulatory - History of Present Illness Initial Comments: 45-year-old female with history of insulin-dependent diabetes, history of hysterectomy presenting to the ER today for chief complaint of left lower quadrant abdominal pain. Patient states she has had left lower quadrant abdominal pain on and off for the past few days. She misses some nausea and occasional vomiting. She states she chronically has loose stools. She denies any fevers chest pain shortness of breath or upper abdominal pain. Patient den ies any epigastric pain chest pain or shortness of breath. Patient denies any positive sick contacts. Patient states her sugars have always run high. She denies any confusion discomfort or back pain. She states this is more localized than her typical kidney stone pain she states that she has never experienced this pain in the past. Remaining review of system negative upon arrival patient appears nontoxic no acute distress heart rate is noted to be elevated, she is afebrile. - Related Data Home Medications Medication Instructions Recorded Confirmed oxyCODONE-APAP 10-325MG [Percocet 1 tab PO Q6H PRN 08/29/17 04/21/20 10-325 mg] PARoxetine HCL [Paxil] 40 mg PO DAILY 03/12/18 04/21/20 Topiramate [Topamax] 100 mg PO BID 03/12/18 04/21/20 PARoxetine [Paxil] 20 mg PO DAILY 06/04/18 04/21/20 Atorvastatin [Lipitor] 40 mg PO DAILY 07/16/19 04/21/20 Insulin Glargine,Hum.rec.anlog 40 unit SQ HS 01/26/20 04/21/20 [Basaglar Kwikpen U-100] lisinopriL [Zestril] 10 mg PO DAILY 01/26/20 04/21/20 Montelukast [Singulair] 10 mg PO DAILY 02/09/20 04/21/20 ARIPiprazole [Abilify] 15 mg PO HS 04/04/20 04/21/20 Insulin Lispro [Admelog Solostar] 6 units SQ AC-TID 04/04/20 04/21/20 Mirtazapine 7.5 mg PO HS 04/04/20 04/21/20 OXcarbazepine [Trileptal] 300 mg PO BID 04/04/20 04/21/20 metFORMIN HCL 1,000 mg PO BID 04/04/20 04/21/20 Loratadine 10 mg PO DAILY 04/21/20 04/21/20 Previous Rx's Medication Instructions Recorded SUMAtriptan succinate [Imitrex] 100 mg PO DAILY PRN tab 08/02/17 Ciprofloxacin HCl [Cipro] 500 mg PO Q12HR 1 Days #6 tab 05/27/20 Allergies Allergy/AdvReac Type Severity Reaction Status Date / Time bupropion HCl Allergy Rash/Hives Verified 08/29/20 20:50 [From Wellbutrin] divalproex sodium Allergy Unknown Verified 08/29/20 20:50 [From Depakote] fentanyl Allergy Swelling Verified 08/29/20 20:50 Iodinated Contrast Media Allergy Anaphylaxis Verified 08/29/20 20:50 [Iodinated Contrast Media - IV Dye] orange juice [[place]] Allergy Rash/Hives Verified 08/29/20 20:50 Sulfa (Sulfonamide Allergy Rash/Hives Verified 08/29/20 20:50 Antibiotics) Penicillins AdvReac Nausea & Verified 08/29/20 20:50 Vomiting Review of Systems ROS Statement: Those systems with pertinent positive or pertinent negative responses have been documented in the HPI. ROS Other: All systems not noted in ROS Statement are negative. 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 History of Any Multi-Drug Resistant Organisms: ESBL Date of last positivie culture/infection: 05/14/17 MDRO Source:: ESBL URINE, Past Surgical History: Bladder Surgery, Section, Cholecystectomy, Hysterectomy, Orthopedic Surgery, Tubal Ligation Additional Past Surgical History / Comment(s): R ovarian cystectomy, laparoscopic surgery for L ovary that had attached to the bowel, D&C, numerous lithotripsies, nephroscopies, cystoscopies and stents to ureters-none in place at this time, L robotic pyeloplasty with post op infection around kidney which then required a picc line/later removed (pt states was not MRSA), L rotator cuff repair, L wrist tendon surgery, colonoscopy Past Anesthesia/Blood Transfusion Reactions: Family History of Problems w/ Anesthesia Additional Past Anesthesia/Blood Transfusion Reaction / Comment(s): dad-hard time waking up due to enzyme problems in liver Past Psychological History: ADD/ADHD, Anxiety, Bipolar, Depression, PTSD Smoking Status: Current every day smoker Past Alcohol Use History: None Reported Past Drug Use History: None Reported - Past Family History Brother(s) Family Medical History: Cancer Additional Family Medical History / Comment(s): testicular Father Family Medical History: Coronary Artery Disease (CAD), CVA/TIA, Diabetes Mellitus, Renal Disease Additional Family Medical History / Comment(s): GLAUCOMA,NEUROPATHY HAD TRIPLE CABG, at 56yrs from renal disease. Mother Family Medical History: Hyperlipidemia Additional Family Medical History / Comment(s): DDD, HAD 3 vessel CABG AGE 54. General Exam - General Exam Comments Initial Comments: General: The patient is awake and alert, in no distress Eye: Pupils are equal, round and reactive to light, extra-ocular movements are intact. No nystagmus. There is normal conjunctiva bilaterally. No signs of icterus. Ears, nose, mouth and throat: There are moist mucous membranes and no oral lesions. Neck: The neck is supple, there is no tenderness or JVD. Cardiovascular: There is a regular rate and rhythm. No murmur, rub or gallop is appreciated. Respiratory: Lungs are clear to auscultation, respirations are non-labored, breath sounds are equal. No wheezes, stridor, rales, or rhonchi. Gastrointestinal: Soft, non-distended, moderate LLQ Pain to palpation of the abdomen, abdomen without masses or organomegaly noted. There is no rebound or guarding present. No CVA tenderness. Musculoskeletal: Normal ROM, no tenderness. Strength 5/5. Sensation intact. Pulses equal bilaterally 2+. Neurological: A&O x 3. CN II-XII intact grossly, There are no obvious motor or sensory deficits. Coordination appears grossly intact. Speech is normal. Skin: Skin is warm and dry and no rashes or lesions are noted. Psychiatric: Cooperative, appropriate mood & affect, normal judgment. Course Vital Signs 08/29/20 08/29/20 08/29/20 20:48 21:11 22:20 Temperature 98.3 F Pulse Rate 115 H 104 H 102 H Respiratory 18 18 18 Rate Blood Pressure 127/81 129/86 142/83 O2 Sat by Pulse 100 98 95 Oximetry 08/29/20 08/30/20 22:45 00:15 Temperature Pulse Rate 93 94 Respiratory 18 16 Rate Blood Pressure 141/83 103/73 O2 Sat by Pulse 97 98 Oximetry Medical Decision Making - Medical Decision Making Leukocytosis appreciated this could be reactive given history of vomiting. Patient is afebrile nontoxic in appearance. Patient CT no acute findings. Urinalysis reveals glucose but no ketones. Sugar is elevated able to decreased urine with fluids as well as insulin. Patient's heart rate improved she states pain improved after 1 dose of IV medications. At this time patient is comfortable with discharge I recommended primary care follow-up recommend GI follow-up. I discussed the importance of monitoring glucose, returning for worsening pain or persistent vomiting patient verbalized understanding was discharged appearing well. Discussed case with attending. - Lab Data Result diagrams: 08/29/20 21:28 08/29/20 21:28 Lab Results 08/29/20 08/29/20 08/29/20 Range/Units 21:28 21:28 21:28 WBC 16.1 H (3.8-10.6) k/uL RBC 4.95 (3.80-5.40) m/uL Hgb 14.9 (11.4-16.0) gm/dL Hct 43.5 (34.0-46.0) % MCV 87.9 (80.0-100.0) fL MCH 30.1 (25.0-35.0) pg MCHC 34.3 (31.0-37.0) g/dL RDW 12.8 (11.5-15.5) % Plt Count 241 (150-450) k/uL MPV 7.4 Neutrophils % 55 % Lymphocytes % 34 % Monocytes % 4 % Eosinophils % 5 % Basophils % 1 % Neutrophils # 8.9 H (1.3-7.7) k/uL Lymphocytes # 5.4 H (1.0-4.8) k/uL Monocytes # 0.6 (0-1.0) k/uL Eosinophils # 0.8 H (0-0.7) k/uL Basophils # 0.2 (0-0.2) k/uL Sodium 133 L (137-145) mmol/L Potassium 3.9 (3.5-5.1) mmol/L Chloride 100 (98-107) mmol/L Carbon Dioxide 19 L (22-30) mmol/L Anion Gap 14 mmol/L BUN 12 (7-17) mg/dL Creatinine 0.68 (0.52-1.04) mg/dL Est GFR (CKD-EPI)AfAm >90 (>60 ml/min/1.73 sqM) Est GFR (CKD-EPI)NonAf >90 (>60 ml/min/1.73 sqM) Glucose 450 H (74-99) mg/dL POC Glucose (mg/dL) (75-99) mg/dL POC Glu Net Developer ID Calcium 9.8 (8.4-10.2) mg/dL Total Bilirubin 0.7 (0.2-1.3) mg/dL AST 28 (14-36) U/L ALT 34 (4-34) U/L Alkaline Phosphatase 127 H (38-126) U/L Total Protein 7.6 (6.3-8.2) g/dL Albumin 4.7 (3.5-5.0) g/dL Amylase 59 (30-110) U/L Lipase 493 H (23-300) U/L Urine Color Light Yellow Urine Appearance Clear (Clear) Urine pH 5.5 (5.0-8.0) Ur Specific [place] 1.029 (1.001-1.035) Urine Protein Negative (Negative) Urine Glucose (UA) 4+ H (Negative) Urine Ketones Negative (Negative) Urine Blood Negative (Negative) Urine Nitrite Negative (Negative) Urine Bilirubin Negative (Negative) Urine Urobilinogen <2.0 (<2.0) mg/dL Ur Leukocyte Esterase Trace H (Negative) Urine RBC 3 (0-5) /hpf Urine WBC 3 (0-5) /hpf Ur Squamous Epith Cells 3 (0-4) /hpf Urine Bacteria Rare H (None) /hpf Urine Yeast ([place]) Rare H (None) /hpf 08/30/20 Range/Units 00:00 WBC (3.8-10.6) k/uL RBC (3.80-5.40) m/uL Hgb (11.4-16.0) gm/dL Hct (34.0-46.0) % MCV (80.0-100.0) fL MCH (25.0-35.0) pg MCHC (31.0-37.0) g/dL RDW (11.5-15.5) % Plt Count (150-450) k/uL MPV Neutrophils % % Lymphocytes % % Monocytes % % Eosinophils % % Basophils % % Neutrophils # (1.3-7.7) k/uL Lymphocytes # (1.0-4.8) k/uL Monocytes # (0-1.0) k/uL Eosinophils # (0-0.7) k/uL Basophils # (0-0.2) k/uL Sodium (137-145) mmol/L Potassium (3.5-5.1) mmol/L Chloride (98-107) mmol/L Carbon Dioxide (22-30) mmol/L Anion Gap mmol/L BUN (7-17) mg/dL Creatinine (0.52-1.04) mg/dL Est GFR (CKD-EPI)AfAm (>60 ml/min/1.73 sqM) Est GFR (CKD-EPI)NonAf (>60 ml/min/1.73 sqM) Glucose (74-99) mg/dL POC Glucose (mg/dL) 232 H (75-99) mg/dL POC Glu Net Developer ID Lilly Mon[place] Calcium (8.4-10.2) mg/dL Total Bilirubin (0.2-1.3) mg/dL AST (14-36) U/L ALT (4-34) U/L Alkaline Phosphatase (38-126) U/L Total Protein (6.3-8.2) g/dL Albumin (3.5-5.0) g/dL Amylase (30-110) U/L Lipase (23-300) U/L Urine Color Urine Appearance (Clear) Urine pH (5.0-8.0) Ur Specific [place] (1.001-1.035) Urine Protein (Negative) Urine Glucose (UA) (Negative) Urine Ketones (Negative) Urine Blood (Negative) Urine Nitrite (Negative) Urine Bilirubin (Negative) Urine Urobilinogen (<2.0) mg/dL Ur Leukocyte Esterase (Negative) Urine RBC (0-5) /hpf Urine WBC (0-5) /hpf Ur Squamous Epith Cells (0-4) /hpf Urine Bacteria (None) /hpf Urine Yeast ([place]) (None) /hpf Disposition Clinical Impression: Elevated glucose, Abdominal pain Disposition: HOME SELF-CARE Condition: Good Is patient prescribed a controlled substance at d/c from ED?: No Referrals: Melchor Stevens MD [Primary Care Provider] - 1-2 days Time of Disposition: 23:10
[2020-08-30 00:02] LABS: Glucose,Whole Blood 232 mg/dL (75-99)
[2020-08-30] MEDS ORDERED: ACET/COD 300 MG/30 MG STARTER PACK 6 TAB BTL PO STA (00:05)
[2020-08-30 00:18] VITALS: BP 103/73; PULSE 94; RESP 16
== END 2020-08-30 00:15 | disposition home or self-care (01) ==
LOC: EC 20:46
DX: R10.32 Left lower quadrant pain (principal); E11.65 Type 2 diabetes mellitus with hyperglycemia; F90.9 Attention-deficit hyperactivity disorder, unspecified type; F41.9 Anxiety disorder, unspecified; F31.9 Bipolar disorder, unspecified; F43.10 Post-traumatic stress disorder, unspecified; F17.200 Nicotine dependence, unspecified, uncomplicated; K21.9 Gastro-esophageal reflux disease without esophagitis; E78.5 Hyperlipidemia, unspecified; I10 Essential (primary) hypertension; Z79.899 Other long term (current) drug therapy; Z79.4 Long term (current) use of insulin; Z88.0 Allergy status to penicillin; Z88.2 Allergy status to sulfonamides; Z88.8 Allergy status to other drugs, medicaments and biological substances; Z91.018 Allergy to other foods; Z91.041 Radiographic dye allergy status; Z90.49 Acquired absence of other specified parts of digestive tract; Z90.710 Acquired absence of both cervix and uterus; Z98.51 Tubal ligation status
CPT/HCPCS: 36415 ×2; 80053; 82150; 83690; 85025; 81001; 74177; 99284; 96374; 96375 ×3; J1200; J2930; J1170; Q9967

== ENCOUNTER 2020-09-08 20:10 | Emergency (ER) | payer OTHER ==
[2020-09-08 20:20] VITALS: TEMP 98.4
[2020-09-08] MEDS ORDERED: SODIUM CHLORIDE 0.9% 1,000 ML IV STA ×2 (23:01)
[2020-09-08] MEDS ORDERED: MORPHINE SULFATE 4 MG/ML SYRINGE IV STA (23:01)
--- NOTE | 2020-09-08 23:03 | ED ---
Female Urogenital HPI - General Chief complaint: Abdominal Pain Stated complaint: Hernia Time Seen by Provider: 09/08/20 22:32 Source: patient Mode of arrival: ambulatory Limitations: no limitations - Related Data Home Medications Medication Instructions Recorded Confirmed oxyCODONE-APAP 10-325MG [Percocet 1 tab PO Q6H PRN 08/29/17 04/21/20 10-325 mg] PARoxetine HCL [Paxil] 40 mg PO DAILY 03/12/18 04/21/20 Topiramate [Topamax] 100 mg PO BID 03/12/18 04/21/20 PARoxetine [Paxil] 20 mg PO DAILY 06/04/18 04/21/20 Atorvastatin [Lipitor] 40 mg PO DAILY 07/16/19 04/21/20 Insulin Glargine,Hum.rec.anlog 40 unit SQ HS 01/26/20 04/21/20 [Basaglar Kwikpen U-100] lisinopriL [Zestril] 10 mg PO DAILY 01/26/20 04/21/20 Montelukast [Singulair] 10 mg PO DAILY 02/09/20 04/21/20 ARIPiprazole [Abilify] 15 mg PO HS 04/04/20 04/21/20 Insulin Lispro [Admelog Solostar] 6 units SQ AC-TID 04/04/20 04/21/20 Mirtazapine 7.5 mg PO HS 04/04/20 04/21/20 OXcarbazepine [Trileptal] 300 mg PO BID 04/04/20 04/21/20 metFORMIN HCL 1,000 mg PO BID 04/04/20 04/21/20 Loratadine 10 mg PO DAILY 04/21/20 04/21/20 Previous Rx's Medication Instructions Recorded SUMAtriptan succinate [Imitrex] 100 mg PO DAILY PRN tab 08/02/17 Ciprofloxacin HCl [Cipro] 500 mg PO Q12HR 1 Days #6 tab 05/27/20 Clindamycin Gel [Clindamycin 1 applic TOPICAL BID #1 tube 09/09/20 Phosphate 1% Gel] Allergies Allergy/AdvReac Type Severity Reaction Status Date / Time bupropion HCl Allergy Rash/Hives Verified 08/29/20 20:50 [From Wellbutrin] divalproex sodium Allergy Unknown Verified 08/29/20 20:50 [From Depakote] fentanyl Allergy Swelling Verified 08/29/20 20:50 Iodinated Contrast Media Allergy Anaphylaxis Verified 08/29/20 20:50 [Iodinated Contrast Media - IV Dye] orange juice [[place]] Allergy Rash/Hives Verified 08/29/20 20:50 Sulfa (Sulfonamide Allergy Rash/Hives Verified 08/29/20 20:50 Antibiotics) Penicillins AdvReac Nausea & Verified 08/29/20 20:50 Vomiting Review of Systems ROS Statement: Those systems with pertinent positive or pertinent negative responses have been documented in the HPI. ROS Other: All systems not noted in ROS Statement are negative. 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 History of Any Multi-Drug Resistant Organisms: ESBL Date of last positivie culture/infection: 05/14/17 MDRO Source:: ESBL URINE, Past Surgical History: Bladder Surgery, Section, Cholecystectomy, Hysterectomy, Orthopedic Surgery, Tubal Ligation Additional Past Surgical History / Comment(s): R ovarian cystectomy, laparoscopic surgery for L ovary that had attached to the bowel, D&C, numerous lithotripsies, nephroscopies, cystoscopies and stents to ureters-none in place at this time, L robotic pyeloplasty with post op infection around kidney which then required a picc line/later removed (pt states was not MRSA), L rotator cuff repair, L wrist tendon surgery, colonoscopy Past Anesthesia/Blood Transfusion Reactions: Family History of Problems w/ Anesthesia Additional Past Anesthesia/Blood Transfusion Reaction / Comment(s): dad-hard time waking up due to enzyme problems in liver Past Psychological History: ADD/ADHD, Anxiety, Bipolar, Depression, PTSD Smoking Status: Current every day smoker Past Alcohol Use History: None Reported Past Drug Use History: None Reported - Past Family History Brother(s) Family Medical History: Cancer Additional Family Medical History / Comment(s): testicular Father Family Medical History: Coronary Artery Disease (CAD), CVA/TIA, Diabetes Mellitus, Renal Disease Additional Family Medical History / Comment(s): GLAUCOMA,NEUROPATHY HAD TRIPLE CABG, at 56yrs from renal disease. Mother Family Medical History: Hyperlipidemia Additional Family Medical History / Comment(s): DDD, HAD 3 vessel CABG AGE 54. General Exam Limitations: no limitations Course Vital Signs 09/08/20 20:17 Temperature 98.4 F Pulse Rate 115 H Respiratory 18 Rate Blood Pressure 127/80 O2 Sat by Pulse 96 Oximetry Medical Decision Making - Lab Data Result diagrams: 09/08/20 23:08 09/08/20 23:08 Lab Results 09/08/20 09/08/20 09/08/20 Range/Units 23:08 23:08 23:08 WBC 10.4 (3.8-10.6) k/uL RBC 4.59 (3.80-5.40) m/uL Hgb 14.1 (11.4-16.0) gm/dL Hct 41.0 (34.0-46.0) % MCV 89.5 (80.0-100.0) fL MCH 30.8 (25.0-35.0) pg MCHC 34.4 (31.0-37.0) g/dL RDW 12.9 (11.5-15.5) % Plt Count 250 (150-450) k/uL MPV 7.8 Neutrophils % 55 % Lymphocytes % 35 % Monocytes % 5 % Eosinophils % 3 % Basophils % 1 % Neutrophils # 5.8 (1.3-7.7) k/uL Lymphocytes # 3.7 (1.0-4.8) k/uL Monocytes # 0.5 (0-1.0) k/uL Eosinophils # 0.3 (0-0.7) k/uL Basophils # 0.1 (0-0.2) k/uL Sodium 133 L (137-145) mmol/L Potassium 4.1 (3.5-5.1) mmol/L Chloride 100 (98-107) mmol/L Carbon Dioxide 20 L (22-30) mmol/L Anion Gap 13 mmol/L BUN 9 (7-17) mg/dL Creatinine 0.55 (0.52-1.04) mg/dL Est GFR (CKD-EPI)AfAm >90 (>60 ml/min/1.73 sqM) Est GFR (CKD-EPI)NonAf >90 (>60 ml/min/1.73 sqM) Glucose 549 H* (74-99) mg/dL Calcium 9.6 (8.4-10.2) mg/dL Total Bilirubin 0.7 (0.2-1.3) mg/dL AST 45 H (14-36) U/L ALT 42 H (4-34) U/L Alkaline Phosphatase 134 H (38-126) U/L Total Protein 7.0 (6.3-8.2) g/dL Albumin 4.3 (3.5-5.0) g/dL Amylase 43 (30-110) U/L Lipase 168 (23-300) U/L Urine Color Light Yellow Urine Appearance Clear (Clear) Urine pH 6.5 (5.0-8.0) Ur Specific [place] 1.037 H (1.001-1.035) Urine Protein Negative (Negative) Urine Glucose (UA) 4+ H (Negative) Urine Ketones Negative (Negative) Urine Blood Negative (Negative) Urine Nitrite Negative (Negative) Urine Bilirubin Negative (Negative) Urine Urobilinogen <2.0 (<2.0) mg/dL Ur Leukocyte Esterase Negative (Negative) Disposition Clinical Impression: Vaginitis, Vulvovaginitis Disposition: HOME SELF-CARE Condition: Good Instructions (If sedation given, give patient instructions): Vaginitis (ED) Prescriptions: Clindamycin Gel [Clindamycin Phosphate 1% Gel] 1 applic TOPICAL BID #1 tube Is patient prescribed a controlled substance at d/c from ED?: No Referrals: Melchor Stevens MD [Primary Care Provider] - 1-2 days
[2020-09-08] MEDS ORDERED: diphenhydrAMINE 50 MG/ML 1 ML VIAL IVP STA ×2 (23:18→23:23)
[2020-09-08] MEDS ORDERED: methylPREDNISolone SOD SUCCI 125 MG/2 ML VIAL IV STA (23:18)
[2020-09-08] MEDS ORDERED: FAMOTIDINE 20 MG/2 ML VIAL IV STA (23:19)
[2020-09-08 23:30] LABS: Appearance,Urine Clear (Clear); Basophils # (A) 0.1 k/uL (0-0.2); Basophils % (A) 1 %; Bilirubin,Urine Negative (Negative); Blood,Urine Negative (Negative); Color,Urine Light Yellow; Eosinophils # (A) 0.3 k/uL (0-0.7); Eosinophils % (A) 3 %; Glucose,Urine (UA) 4+ (Negative); HGB 14.1 gm/dL (11.4-16.0); Ketones,Urine Negative (Negative); Leukocyte Esterase,Urine Negative (Negative); Lymphocytes # (A) 3.7 k/uL (1.0-4.8); Lymphocytes % (A) 35 %; MCH 30.8 pg (25.0-35.0); MCHC 34.4 g/dL (31.0-37.0); MCV 89.5 fL (80.0-100.0); Mean Platelet Volume 7.8; Monocytes # (A) 0.5 k/uL (0-1.0); Monocytes % (A) 5 %; Neutrophils # (A) 5.8 k/uL (1.3-7.7); Neutrophils % (A) 55 %; Nitrite,Urine Negative (Negative); PH, Urine 6.5 (5.0-8.0); Platelet Count 250 k/uL (150-450); Protein,Urine Negative (Negative); RBC 4.59 m/uL (3.80-5.40); RDW 12.9 % (11.5-15.5); Specific Gravity,Urine 1.037 (1.001-1.035); Urobilinogen,Urine <2.0 mg/dL (<2.0); WBC 10.4 k/uL (3.8-10.6)
--- NOTE | 2020-09-08 23:50 | CT ---
EXAMINATION TYPE: CT abdomen pelvis w con DATE OF EXAM: 09/08/2020 COMPARISON: 08/29/2020 HISTORY: Abdominal pain CT DLP: 927.4 mGycm Automated exposure control for dose reduction was used. CONTRAST: Performed with IV Contrast, patient injected with 100 mL of Isovue 300. Images obtained from the diaphragm to the floor the pelvis with IV contrast. Lung bases are clear. There is no pleural effusion. Heart size is normal. There is no pericardial eff usion. Liver spleen stomach pancreas appear normal. The bile ducts are not dilated. There are clips from cho lecystectomy. There is no adrenal mass. Kidneys show satisfactory contrast opacification. There is 2 mm calculus la teral right kidney. There is no hydronephrosis. Delayed images show fairly normal renal excretion. Ur eters are not dilated. There is no retroperitoneal adenopathy. Appendix is posterior and appears norm al. Bladder distends smoothly. There is no inguinal hernia. There is no free fluid in the pelvis. The re is hysterectomy. There is no evidence of a pelvic mass. Lumbar vertebra have normal spacing and alignment. There is no compression fracture. The bony pelvis is intact. Hip joints appear intact. There is no mesenteric edema. There is no ascites or free air. There is no bowel obstruction. IMPRESSION: Negative CT scan abdomen and pelvis. Normal appendix. No adverse change compared to recent exam. Smal l right renal calculus.
[2020-09-09 00:11] LABS: ALT 42 U/L (4-34); AST 45 U/L (14-36); African American GFR (CKD) >90 (>60 ml/min/1.73 sqM); Albumin 4.3 g/dL (3.5-5.0); Alkaline Phosphatase 134 U/L (38-126); Amylase 43 U/L (30-110); Anion Gap 13 mmol/L; Blood Urea Nitrogen 9 mg/dL (7-17); Calcium 9.6 mg/dL (8.4-10.2); Carbon Dioxide 20 mmol/L (22-30); Chloride 100 mmol/L (98-107); Lipase 168 U/L (23-300); Non-African American GFR(CKD) >90 (>60 ml/min/1.73 sqM); Potassium 4.1 mmol/L (3.5-5.1); Sodium 133 mmol/L (137-145); Total Bilirubin 0.7 mg/dL (0.2-1.3)
[2020-09-09 00:29] LABS: Glucose 549 mg/dL (74-99)
[2020-09-09] MEDS ORDERED: INSULIN REGULAR 100 UNIT/ML VIAL IV STA (00:32)
[2020-09-09] MEDS ORDERED: SODIUM CHLORIDE 0.9% 1,000 ML IV STA (00:32)
[2020-09-09] MEDS ORDERED: AZITHROMYCIN 500 MG TAB PO STA (00:41)
[2020-09-09] MEDS ORDERED: FLUCONAZOLE 150 MG TAB PO STA (00:41)
[2020-09-09] MEDS ORDERED: HYDROmorphone 0.5 MG/0.5 ML SYRINGE IVP STA (01:03)
[2020-09-09 01:08] VITALS: BP 122/81; PULSE 78; RESP 19
== END 2020-09-09 01:47 | disposition home or self-care (01) ==
LOC: EC 20:10
DX: N76.0 Acute vaginitis (principal); F32.9 Major depressive disorder, single episode, unspecified; F17.200 Nicotine dependence, unspecified, uncomplicated; Z90.49 Acquired absence of other specified parts of digestive tract; Z90.710 Acquired absence of both cervix and uterus; Z98.51 Tubal ligation status
CPT/HCPCS: 36415; 80053; 82150; 83690; 85025; 81003; 87070; 87205; 87075; 74177; 99284; 96365; 96375; 96361; J2270; J1200; J2930; J0696; J1170; Q9967; 87077; 87186

== ENCOUNTER 2020-10-15 20:48 | Emergency (ER) | payer BC, OTHER ==
[2020-10-15] MEDS ORDERED: KETOROLAC 15 MG/ML 1 ML VIAL IVP STA (21:48)
[2020-10-15] MEDS ORDERED: ONDANSETRON 4 MG/2 ML VIAL IVP STA (21:48)
[2020-10-15] MEDS ORDERED: HYDROmorphone 0.5 MG/0.5 ML SYRINGE IVP STA (21:48)
[2020-10-15] MEDS ORDERED: SODIUM CHLORIDE 0.9% 1,000 ML IV STA (21:48)
[2020-10-15 22:20] LABS: Basophils # (A) 0.1 k/uL (0-0.2); Basophils % (A) 1 %; Eosinophils # (A) 0.3 k/uL (0-0.7); Eosinophils % (A) 2 %; HCT 42.2 % (34.0-46.0); HGB 14.7 gm/dL (11.4-16.0); Lymphocytes # (A) 4.5 k/uL (1.0-4.8); Lymphocytes % (A) 40 %; MCH 30.4 pg (25.0-35.0); MCHC 34.9 g/dL (31.0-37.0); MCV 87.2 fL (80.0-100.0); Mean Platelet Volume 7.3; Monocytes # (A) 0.5 k/uL (0-1.0); Monocytes % (A) 4 %; Neutrophils # (A) 5.9 k/uL (1.3-7.7); Neutrophils % (A) 52 %; Platelet Count 253 k/uL (150-450); RBC 4.84 m/uL (3.80-5.40); RDW 12.4 % (11.5-15.5); WBC 11.3 k/uL (3.8-10.6)
[2020-10-15] MEDS ORDERED: FLUCONAZOLE 150 MG TAB PO STA (22:29)
[2020-10-15 22:31] LABS: ALT 34 U/L (4-34); AST 32 U/L (14-36); African American GFR (CKD) >90 (>60 ml/min/1.73 sqM); Albumin 4.2 g/dL (3.5-5.0); Alkaline Phosphatase 108 U/L (38-126); Amylase 56 U/L (30-110); Anion Gap 13 mmol/L; Blood Urea Nitrogen 10 mg/dL (7-17); Calcium 9.9 mg/dL (8.4-10.2); Carbon Dioxide 21 mmol/L (22-30); Chloride 102 mmol/L (98-107); Glucose 273 mg/dL (74-99); Lipase 274 U/L (23-300); Non-African American GFR(CKD) >90 (>60 ml/min/1.73 sqM); Potassium 3.8 mmol/L (3.5-5.1); Sodium 136 mmol/L (137-145); Total Bilirubin 0.8 mg/dL (0.2-1.3); Total Protein 6.7 g/dL (6.3-8.2)
[2020-10-15 22:35] LABS: Appearance,Urine Clear (Clear); Bacteria,Urine Rare /hpf; Bilirubin,Urine Negative (Negative); Blood,Urine Large (Negative); Color,Urine Yellow; Glucose,Urine (UA) Negative (Negative); Ketones,Urine Negative (Negative); Leukocyte Esterase,Urine Negative (Negative); Mucus,Urine Rare /hpf; Nitrite,Urine Negative (Negative); PH, Urine 6.5 (5.0-8.0); Protein,Urine Negative (Negative); RBC,Urine >182 /hpf (0-5); Specific Gravity,Urine 1.013 (1.001-1.035); Squamous Epithelial Cell,Urine 8 /hpf (0-4); WBC,Urine 6 /hpf (0-5)
--- NOTE | 2020-10-15 23:33 | XR ---
EXAMINATION TYPE: XR KUB DATE OF EXAM: 10/15/2020 COMPARISON: 08/18/2020 HISTORY: Abdominal pain TECHNIQUE: 2 views upright FINDINGS: There is no sign of intestinal obstruction or pneumoperitoneum. Fecal pattern is normal. Th ere are clips from cholecystectomy. There is no evidence of a mass. There are no calcifications over the kidneys. IMPRESSION: Nonacute abdomen. No adverse change.
--- NOTE | 2020-10-15 23:36 | ED ---
Abdominal Pain HPI - General Chief Complaint: Abdominal Pain Stated Complaint: Kidney Stones Time Seen by Provider: 10/15/20 21:06 Source: patient Mode of arrival: ambulatory Limitations: no limitations - History of Present Illness Initial Comments: 45 year-old female patient presents to the emergency department for evaluation of right flank pain, left groin pain, and genital itching. States that she has chronic kidney stones and pain in the right flank. She states that over the last 2-3 days she has developed what she believes is a yeast infection, states she is having itching and white discharge. States she does have diabetes. She is also reporting left groin pain and mild swelling. Was told before that she had enlarged lymph node. Has been taking home pain medication without relief. Patient denies any recent rash, fever, chills, cough, shortness of breath, chest pain, diarrhea, constipation, back pain, numbness, tingling, dizziness, weak ness, headache, visual changes, or any other complaints. - Related Data Home Medications Medication Instructions Recorded Confirmed oxyCODONE-APAP 10-325MG [Percocet 1 tab PO Q6H PRN 08/29/17 04/21/20 10-325 mg] PARoxetine HCL [Paxil] 40 mg PO DAILY 03/12/18 04/21/20 Topiramate [Topamax] 100 mg PO BID 03/12/18 04/21/20 PARoxetine [Paxil] 20 mg PO DAILY 06/04/18 04/21/20 Atorvastatin [Lipitor] 40 mg PO DAILY 07/16/19 04/21/20 Insulin Glargine,Hum.rec.anlog 40 unit SQ HS 01/26/20 04/21/20 [Basaglar Kwikpen U-100] lisinopriL [Zestril] 10 mg PO DAILY 01/26/20 04/21/20 Montelukast [Singulair] 10 mg PO DAILY 02/09/20 04/21/20 ARIPiprazole [Abilify] 15 mg PO HS 04/04/20 04/21/20 Insulin Lispro [Admelog Solostar] 6 units SQ AC-TID 04/04/20 04/21/20 Mirtazapine 7.5 mg PO HS 04/04/20 04/21/20 OXcarbazepine [Trileptal] 300 mg PO BID 04/04/20 04/21/20 metFORMIN HCL 1,000 mg PO BID 04/04/20 04/21/20 Loratadine 10 mg PO DAILY 04/21/20 04/21/20 Previous Rx's Medication Instructions Recorded SUMAtriptan succinate [Imitrex] 100 mg PO DAILY PRN tab 08/02/17 Ciprofloxacin HCl [Cipro] 500 mg PO Q12HR 1 Days #6 tab 05/27/20 Clindamycin Gel [Clindamycin 1 applic TOPICAL BID #1 tube 09/09/20 Phosphate 1% Gel] Fluconazole [Diflucan] 150 mg PO ONCE #1 tab 10/15/20 Allergies Allergy/AdvReac Type Severity Reaction Status Date / Time bupropion HCl Allergy Rash/Hives Verified 10/15/20 21:00 [From Wellbutrin] divalproex sodium Allergy Unknown Verified 10/15/20 21:00 [From Depakote] fentanyl Allergy Swelling Verified 10/15/20 21:00 Iodinated Contrast Media Allergy Anaphylaxis Verified 10/15/20 21:00 [Iodinated Contrast Media - IV Dye] orange juice [[place]] Allergy Rash/Hives Verified 10/15/20 21:00 Sulfa (Sulfonamide Allergy Rash/Hives Verified 10/15/20 21:00 Antibiotics) Penicillins AdvReac Nausea & Verified 10/15/20 21:00 Vomiting Review of Systems ROS Statement: Those systems with pertinent positive or pertinent negative responses have been documented in the HPI. ROS Other: All systems not noted in ROS Statement are negative. 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 History of Any Multi-Drug Resistant Organisms: ESBL Date of last positivie culture/infection: 05/14/17 MDRO Source:: ESBL URINE, Past Surgical History: Bladder Surgery, Section, Cholecystectomy, Hysterectomy, Orthopedic Surgery, Tubal Ligation Additional Past Surgical History / Comment(s): R ovarian cystectomy, laparoscopic surgery for L ovary that had attached to the bowel, D&C, numerous lithotripsies, nephroscopies, cystoscopies and stents to ureters-none in place at this time, L robotic pyeloplasty with post op infection around kidney which then required a picc line/later removed (pt states was not MRSA), L rotator cuff repair, L wrist tendon surgery, colonoscopy Past Anesthesia/Blood Transfusion Reactions: Family History of Problems w/ Anesthesia Additional Past Anesthesia/Blood Transfusion Reaction / Comment(s): dad-hard time waking up due to enzyme problems in liver Past Psychological History: ADD/ADHD, Anxiety, Bipolar, Depression, PTSD Smoking Status: Current every day smoker Past Alcohol Use History: None Reported Past Drug Use History: None Reported - Past Family History Brother(s) Family Medical History: Cancer Additional Family Medical History / Comment(s): testicular Father Family Medical History: Coronary Artery Disease (CAD), CVA/TIA, Diabetes Mellitus, Renal Disease Additional Family Medical History / Comment(s): GLAUCOMA,NEUROPATHY HAD TRIPLE CABG, at 56yrs from renal disease. Mother Family Medical History: Hyperlipidemia Additional Family Medical History / Comment(s): DDD, HAD 3 vessel CABG AGE 54. General Exam Limitations: no limitations General appearance: alert, in no apparent distress, other (Physical well- developed, well-nourished adult female patient in no acute distress. Vital signs upon presentation are temperature 97.8F, pulse 104, respirations 20, blood pressure 111/69, pulse ox 97% on room air.) Eye exam: Present: normal appearance, PERRL, EOMI. Absent: scleral icterus, conjunctival injection, periorbital swelling ENT exam: Present: normal exam, normal oropharynx, mucous membranes moist Respiratory exam: Present: normal lung sounds bilaterally. Absent: respiratory distress, wheezes, rales, rhonchi, stridor Cardiovascular Exam: Present: regular rate, normal rhythm, normal heart sounds. Absent: systolic murmur, diastolic murmur, rubs, gallop, clicks GI/Abdominal exam: Present: soft, normal bowel sounds. Absent: distended, tenderness, guarding, rebound, rigid Extremities exam: Present: full ROM, normal capillary refill, other (left inguinal lymphadenopathy). Absent: tenderness, pedal edema, joint swelling, calf tenderness Back exam: Present: normal inspection, CVA tenderness (R). Absent: CVA tenderness (L) Neurological exam: Present: alert, oriented X3, CN II-XII intact Psychiatric exam: Present: normal affect, normal mood Skin exam: Present: warm, dry, intact, normal color. Absent: rash Course Vital Signs 10/15/20 20:59 Temperature 97.8 F Pulse Rate 104 H Respiratory 20 Rate Blood Pressure 111/69 O2 Sat by Pulse 97 Oximetry Medical Decision Making - Medical Decision Making 45-year-old female patient presents to the emergency department today for e valuation of right flank pain and left groin pain and swelling. Physical examination did reveal left inguinal lymphadenopathy. A CVA tenderness. Vital signs are unremarkable. Labs reviewed, there is blood in the urine. Patient does have chronic kidney stones. She is given IV doses of pain medication. She be discharged to follow-up with her primary care physician for recheck in 1-2 days. She is instructed to discuss the lymphadenopathy. She'll be treated for yeast infection with Diflucan. Return parameters were discussed in detail. She verbalizes understanding and agrees with this plan. My attending is Dr. Linda. - Lab Data Result diagrams: 10/15/20 22:00 10/15/20 22:00 Lab Results 10/15/20 10/15/20 10/15/20 Range/Units 22:00 22:00 22:00 WBC 11.3 H (3.8-10.6) k/uL RBC 4.84 (3.80-5.40) m/uL Hgb 14.7 (11.4-16.0) gm/dL Hct 42.2 (34.0-46.0) % MCV 87.2 (80.0-100.0) fL MCH 30.4 (25.0-35.0) pg MCHC 34.9 (31.0-37.0) g/dL RDW 12.4 (11.5-15.5) % Plt Count 253 (150-450) k/uL MPV 7.3 Neutrophils % 52 % Lymphocytes % 40 % Monocytes % 4 % Eosinophils % 2 % Basophils % 1 % Neutrophils # 5.9 (1.3-7.7) k/uL Lymphocytes # 4.5 (1.0-4.8) k/uL Monocytes # 0.5 (0-1.0) k/uL Eosinophils # 0.3 (0-0.7) k/uL Basophils # 0.1 (0-0.2) k/uL Sodium 136 L (137-145) mmol/L Potassium 3.8 (3.5-5.1) mmol/L Chloride 102 (98-107) mmol/L Carbon Dioxide 21 L (22-30) mmol/L Anion Gap 13 mmol/L BUN 10 (7-17) mg/dL Creatinine 0.62 (0.52-1.04) mg/dL Est GFR (CKD-EPI)AfAm >90 (>60 ml/min/1.73 sqM) Est GFR (CKD-EPI)NonAf >90 (>60 ml/min/1.73 sqM) Glucose 273 H (74-99) mg/dL Calcium 9.9 (8.4-10.2) mg/dL Total Bilirubin 0.8 (0.2-1.3) mg/dL AST 32 (14-36) U/L ALT 34 (4-34) U/L Alkaline Phosphatase 108 (38-126) U/L Total Protein 6.7 (6.3-8.2) g/dL Albumin 4.2 (3.5-5.0) g/dL Amylase 56 (30-110) U/L Lipase 274 (23-300) U/L Urine Color Yellow Urine Appearance Clear (Clear) Urine pH 6.5 (5.0-8.0) Ur Specific [place] 1.013 (1.001-1.035) Urine Protein Negative (Negative) Urine Glucose (UA) Negative (Negative) Urine Ketones Negative (Negative) Urine Blood Large H (Negative) Urine Nitrite Negative (Negative) Urine Bilirubin Negative (Negative) Urine Urobilinogen 3.0 (<2.0) mg/dL Ur Leukocyte Esterase Negative (Negative) Urine RBC >182 H (0-5) /hpf Urine WBC 6 H (0-5) /hpf Ur Squamous Epith Cells 8 H (0-4) /hpf Urine Bacteria Rare H (None) /hpf Urine Mucus Rare H (None) /hpf - Radiology Data Radiology results: report reviewed, image reviewed Disposition Clinical Impression: Kidney stone, Lymphadenopathy, Yeast infection Disposition: HOME SELF-CARE Condition: Good Instructions (If sedation given, give patient instructions): Kidney Stones (ED), Lymphadenopathy (ED), Yeast Infection (ED) Additional Instructions: Follow-up with your primary care physician for recheck in 1-2 days, discuss enlarged lymph nodes. Take Diflucan in three days. Return to the emergency department for any new, worsening, or concerning symptoms. Prescriptions: Fluconazole [Diflucan] 150 mg PO ONCE #1 tab Is patient prescribed a controlled substance at d/c from ED?: No Referrals: Elida Basurto MD [Primary Care Provider] - 1-2 days Time of Disposition: 23:36
[2020-10-15] MEDS ORDERED: HYDROmorphone 1 MG/ML 1 ML SYRINGE IVP STA (23:37)
[2020-10-16 00:15] VITALS: BP 109/69; PULSE 86; RESP 18; TEMP 98.2
== END 2020-10-16 00:15 | disposition home or self-care (01) ==
LOC: EC 20:48
DX: N20.0 Calculus of kidney (principal); R59.1 Generalized enlarged lymph nodes; B37.9 Candidiasis, unspecified; E11.9 Type 2 diabetes mellitus without complications; E78.5 Hyperlipidemia, unspecified; I10 Essential (primary) hypertension; F41.9 Anxiety disorder, unspecified; F32.9 Major depressive disorder, single episode, unspecified; F90.9 Attention-deficit hyperactivity disorder, unspecified type; F17.200 Nicotine dependence, unspecified, uncomplicated; Z79.4 Long term (current) use of insulin; Z79.51 Long term (current) use of inhaled steroids; Z79.899 Other long term (current) drug therapy; Z88.0 Allergy status to penicillin; Z88.2 Allergy status to sulfonamides; Z88.8 Allergy status to other drugs, medicaments and biological substances; Z88.4 Allergy status to anesthetic agent; Z91.018 Allergy to other foods; Z91.041 Radiographic dye allergy status
CPT/HCPCS: 36415; 80053; 82150; 83690; 85025; 81001; 74018; 99284; 96374; 96375 ×2; 96376; 96361; J2405; J1170 ×2; J1885

== ENCOUNTER 2020-10-25 00:57 | Emergency (ER) | payer BC, OTHER ==
[2020-10-25 01:00] VITALS: TEMP 97.4
[2020-10-25 02:10] LABS: Basophils # (A) 0.1 k/uL (0-0.2); Basophils % (A) 1 %; Eosinophils # (A) 0.3 k/uL (0-0.7); Eosinophils % (A) 2 %; HGB 13.6 gm/dL (11.4-16.0); Lymphocytes # (A) 4.2 k/uL (1.0-4.8); Lymphocytes % (A) 38 %; MCH 30.4 pg (25.0-35.0); MCHC 34.8 g/dL (31.0-37.0); MCV 87.2 fL (80.0-100.0); Mean Platelet Volume 7.1; Monocytes # (A) 0.6 k/uL (0-1.0); Monocytes % (A) 5 %; Neutrophils % (A) 53 %; Platelet Count 237 k/uL (150-450); RBC 4.47 m/uL (3.80-5.40); RDW 12.3 % (11.5-15.5); WBC 11.3 k/uL (3.8-10.6)
[2020-10-25 02:16] LABS: Appearance,Urine Clear (Clear); Bacteria,Urine Rare /hpf; Bilirubin,Urine Negative (Negative); Blood,Urine Large (Negative); Calcium Oxalate Crystals,Urine Occasional /hpf; Color,Urine Yellow; Glucose,Urine (UA) 4+ (Negative); Ketones,Urine Trace (Negative); Leukocyte Esterase,Urine Negative (Negative); Nitrite,Urine Negative (Negative); PH, Urine 5.5 (5.0-8.0); Protein,Urine Trace (Negative); RBC,Urine >182 /hpf (0-5); Specific Gravity,Urine 1.031 (1.001-1.035); Squamous Epithelial Cell,Urine 3 /hpf (0-4); Urobilinogen,Urine <2.0 mg/dL (<2.0); WBC,Urine 9 /hpf (0-5)
[2020-10-25 02:20] LABS: ALT 29 U/L (4-34); AST 35 U/L (14-36); African American GFR (CKD) >90 (>60 ml/min/1.73 sqM); Alkaline Phosphatase 106 U/L (38-126); Amylase 50 U/L (30-110); Anion Gap 10 mmol/L; Blood Urea Nitrogen 12 mg/dL (7-17); Calcium 9.1 mg/dL (8.4-10.2); Carbon Dioxide 19 mmol/L (22-30); Chloride 106 mmol/L (98-107); Glucose 314 mg/dL (74-99); Lipase 160 U/L (23-300); Non-African American GFR(CKD) >90 (>60 ml/min/1.73 sqM); Potassium 3.6 mmol/L (3.5-5.1); Sodium 135 mmol/L (137-145); Total Bilirubin 0.5 mg/dL (0.2-1.3); Total Protein 6.7 g/dL (6.3-8.2)
[2020-10-25] MEDS ORDERED: MORPHINE SULFATE 4 MG/ML SYRINGE IV STA (02:54)
[2020-10-25] MEDS ORDERED: AZITHROMYCIN 250 MG TAB PO STA (02:54)
--- NOTE | 2020-10-25 02:56 | ED ---
General Adult HPI - General Chief complaint: Urogenital Stated complaint: Groin pain Time Seen by Provider: 10/25/20 01:38 Source: patient Mode of arrival: ambulatory Limitations: no limitations - History of Present Illness Initial comments: this patient is a 45-year-old woman who presents to be evaluated for left groin lump that has been tender. She states that he had come on a number weeks ago when she was seen here once in the emergency department for. She was told she had a swollen lymph node. Patient denies any systemic symptoms, no fever or chills, no chest pain, palpitations, dyspnea. No abdominal pain, vomiting or diarrhea. No dysuria, frequency. no discharge -: week(s) Location: left, lower extremity - Related Data Home Medications Medication Instructions Recorded Confirmed oxyCODONE-APAP 10-325MG [Percocet 1 tab PO Q6H PRN 08/29/17 04/21/20 10-325 mg] PARoxetine HCL [Paxil] 40 mg PO DAILY 03/12/18 04/21/20 Topiramate [Topamax] 100 mg PO BID 03/12/18 04/21/20 PARoxetine [Paxil] 20 mg PO DAILY 06/04/18 04/21/20 Atorvastatin [Lipitor] 40 mg PO DAILY 07/16/19 04/21/20 Insulin Glargine,Hum.rec.anlog 40 unit SQ HS 01/26/20 04/21/20 [Basaglar Kwikpen U-100] lisinopriL [Zestril] 10 mg PO DAILY 01/26/20 04/21/20 Montelukast [Singulair] 10 mg PO DAILY 02/09/20 04/21/20 ARIPiprazole [Abilify] 15 mg PO HS 04/04/20 04/21/20 Insulin Lispro [Admelog Solostar] 6 units SQ AC-TID 04/04/20 04/21/20 Mirtazapine 7.5 mg PO HS 04/04/20 04/21/20 OXcarbazepine [Trileptal] 300 mg PO BID 04/04/20 04/21/20 metFORMIN HCL 1,000 mg PO BID 04/04/20 04/21/20 Loratadine 10 mg PO DAILY 04/21/20 04/21/20 Previous Rx's Medication Instructions Recorded SUMAtriptan succinate [Imitrex] 100 mg PO DAILY PRN tab 08/02/17 Ciprofloxacin HCl [Cipro] 500 mg PO Q12HR 1 Days #6 tab 05/27/20 Clindamycin Gel [Clindamycin 1 applic TOPICAL BID #1 tube 09/09/20 Phosphate 1% Gel] Fluconazole [Diflucan] 150 mg PO ONCE #1 tab 10/15/20 Allergies Allergy/AdvReac Type Severity Reaction Status Date / Time bupropion HCl Allergy Rash/Hives Verified 10/25/20 01:01 [From Wellbutrin] divalproex sodium Allergy Unknown Verified 10/25/20 01:01 [From Depakote] fentanyl Allergy Swelling Verified 10/25/20 01:01 Iodinated Contrast Media Allergy Anaphylaxis Verified 10/25/20 01:01 [Iodinated Contrast Media - IV Dye] orange juice [[place]] Allergy Rash/Hives Verified 10/25/20 01:01 Sulfa (Sulfonamide Allergy Rash/Hives Verified 10/25/20 01:01 Antibiotics) Penicillins AdvReac Nausea & Verified 10/25/20 01:01 Vomiting Review of Systems ROS Statement: Those systems with pertinent positive or pertinent negative responses have been documented in the HPI. ROS Other: All systems not noted in ROS Statement are negative. Constitutional: Denies: fever, chills Respiratory: Denies: cough, dyspnea Cardiovascular: Denies: chest pain, palpitations, edema Gastrointestinal: Denies: abdominal pain, nausea, vomiting, diarrhea Genitourinary: Denies: dysuria, hematuria, discharge Musculoskeletal: Denies: back pain Skin: Denies: rash Past Medical History Past Medical History: Diabetes Mellitus, Eye Disorder, GERD/Reflux, Hyperlipidemia, Hypertension, Pneumonia, Renal Disease, Syncope Additional Past Medical History / Comment(s): NIDDM type II, colitis once, recurrent nephrolithiasis, polynephritis, frequent UTIs, polycystic ovarian syndrome, 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 History of Any Multi-Drug Resistant Organisms: ESBL Date of last positivie culture/infection: 05/14/17 MDRO Source:: ESBL URINE, Past Surgical History: Bladder Surgery, Section, Cholecystectomy, Hysterectomy, Orthopedic Surgery, Tubal Ligation Additional Past Surgical History / Comment(s): R ovarian cystectomy, laparoscopic surgery for L ovary that had attached to the bowel, D&C, numerous lithotripsies, nephroscopies, cystoscopies and stents to ureters-none in place at this time, L robotic pyeloplasty with post op infection around kidney which then required a picc line/later removed (pt states was not MRSA), L rotator cuff repair, L wrist tendon surgery, colonoscopy Past Anesthesia/Blood Transfusion Reactions: Family History of Problems w/ Anesthesia Additional Past Anesthesia/Blood Transfusion Reaction / Comment(s): dad-hard time waking up due to enzyme problems in liver Past Psychological History: ADD/ADHD, Anxiety, Bipolar, Depression, PTSD Smoking Status: Current every day smoker Past Alcohol Use History: None Reported Past Drug Use History: None Reported - Past Family History Brother(s) Family Medical History: Cancer Additional Family Medical History / Comment(s): testicular Father Family Medical History: Coronary Artery Disease (CAD), CVA/TIA, Diabetes Mellitus, Renal Disease Additional Family Medical History / Comment(s): GLAUCOMA,NEUROPATHY HAD TRIPLE CABG, at 56yrs from renal disease. Mother Family Medical History: Hyperlipidemia Additional Family Medical History / Comment(s): DDD, HAD 3 vessel CABG AGE 54. General Exam Limitations: no limitations General appearance: alert, in no apparent distress Head exam: Present: atraumatic, normocephalic Eye exam: Present: normal appearance. Absent: scleral icterus, conjunctival injection Respiratory exam: Present: normal lung sounds bilaterally. Absent: respiratory distress, wheezes, rales, rhonchi, stridor Cardiovascular Exam: Present: regular rate, normal rhythm, normal heart sounds. Absent: systolic murmur, diastolic murmur, rubs, gallop GI/Abdominal exam: Present: soft, other (the patient does have tenderness at one of the left inguinal nodes, which is at upper limit normal size. No overlying skin change). Absent: distended, tenderness, guarding, rebound, rigid, mass, pulsatile mass, hernia Extremities exam: Present: normal inspection, normal capillary refill. Absent: pedal edema, calf tenderness Back exam: Present: normal inspection. Absent: CVA tenderness (R), CVA tenderness (L) Neurological exam: Present: alert Skin exam: Present: warm, dry, intact, normal color. Absent: rash Course Vital Signs 10/25/20 10/25/20 00:58 03:00 Temperature 97.4 F L Pulse Rate 110 H 101 H Respiratory 19 20 Rate Blood Pressure 130/84 128/78 O2 Sat by Pulse 99 97 Oximetry Medical Decision Making - Lab Data Result diagrams: 10/25/20 01:54 10/25/20 01:54 Lab Results 10/25/20 10/25/20 10/25/20 Range/Units 01:54 01:54 01:54 WBC 11.3 H (3.8-10.6) k/uL RBC 4.47 (3.80-5.40) m/uL Hgb 13.6 (11.4-16.0) gm/dL Hct 39.0 (34.0-46.0) % MCV 87.2 (80.0-100.0) fL MCH 30.4 (25.0-35.0) pg MCHC 34.8 (31.0-37.0) g/dL RDW 12.3 (11.5-15.5) % Plt Count 237 (150-450) k/uL MPV 7.1 Neutrophils % 53 % Lymphocytes % 38 % Monocytes % 5 % Eosinophils % 2 % Basophils % 1 % Neutrophils # 6.0 (1.3-7.7) k/uL Lymphocytes # 4.2 (1.0-4.8) k/uL Monocytes # 0.6 (0-1.0) k/uL Eosinophils # 0.3 (0-0.7) k/uL Basophils # 0.1 (0-0.2) k/uL Sodium 135 L (137-145) mmol/L Potassium 3.6 (3.5-5.1) mmol/L Chloride 106 (98-107) mmol/L Carbon Dioxide 19 L (22-30) mmol/L Anion Gap 10 mmol/L BUN 12 (7-17) mg/dL Creatinine 0.51 L (0.52-1.04) mg/dL Est GFR (CKD-EPI)AfAm >90 (>60 ml/min/1.73 sqM) Est GFR (CKD-EPI)NonAf >90 (>60 ml/min/1.73 sqM) Glucose 314 H (74-99) mg/dL Calcium 9.1 (8.4-10.2) mg/dL Total Bilirubin 0.5 (0.2-1.3) mg/dL AST 35 (14-36) U/L ALT 29 (4-34) U/L Alkaline Phosphatase 106 (38-126) U/L Total Protein 6.7 (6.3-8.2) g/dL Albumin 4.0 (3.5-5.0) g/dL Amylase 50 (30-110) U/L Lipase 160 (23-300) U/L Urine Color Yellow Urine Appearance Clear (Clear) Urine pH 5.5 (5.0-8.0) Ur Specific [place] 1.031 (1.001-1.035) Urine Protein Trace H (Negative) Urine Glucose (UA) 4+ H (Negative) Urine Ketones Trace H (Negative) Urine Blood Large H (Negative) Urine Nitrite Negative (Negative) Urine Bilirubin Negative (Negative) Urine Urobilinogen <2.0 (<2.0) mg/dL Ur Leukocyte Esterase Negative (Negative) Urine RBC >182 H (0-5) /hpf Urine WBC 9 H (0-5) /hpf Ur Squamous Epith Cells 3 (0-4) /hpf Calcium Oxalate Crystal Occasional H (None) /hpf Urine Bacteria Rare H (None) /hpf Disposition Clinical Impression: Inguinal adenopathy Disposition: HOME SELF-CARE Condition: Good Instructions (If sedation given, give patient instructions): Adenitis (ED) Is patient prescribed a controlled substance at d/c from ED?: No Referrals: Elida Basurto MD [Primary Care Provider] - 1-2 days
[2020-10-25] MEDS ORDERED: AZITHROMYCIN 500 MG TAB PO STA (02:58)
[2020-10-25 03:28] VITALS: BP 128/78; PULSE 101; RESP 20
[2020-10-26 15:16] LABS: N. gonorrhoeae,PCR Negative (Neg,Equiv); Neisseria Source Urine
[2020-10-26 15:17] LABS: C. trachomatis,PCR Negative (Neg,Equiv); Chlamydia trachomatis Source Urine
== END 2020-10-25 03:41 | disposition home or self-care (01) ==
LOC: EC 00:57
DX: R59.0 Localized enlarged lymph nodes (principal); E11.9 Type 2 diabetes mellitus without complications; E78.5 Hyperlipidemia, unspecified; F17.200 Nicotine dependence, unspecified, uncomplicated; F32.9 Major depressive disorder, single episode, unspecified; F41.9 Anxiety disorder, unspecified; I10 Essential (primary) hypertension; K21.9 Gastro-esophageal reflux disease without esophagitis; Z79.4 Long term (current) use of insulin; Z90.49 Acquired absence of other specified parts of digestive tract; Z90.710 Acquired absence of both cervix and uterus; Z98.51 Tubal ligation status; Z87.442 Personal history of urinary calculi
CPT/HCPCS: 36415; 80053; 82150; 83690; 85025; 81001; 87491; 87591; 99283; 96374; J2270

== ENCOUNTER 2020-10-28 23:19 | Emergency (ER) | payer BC, OTHER ==
[2020-10-28 23:28] VITALS: TEMP 97.3
[2020-10-28 23:33] LABS: Glucose,Whole Blood 268 mg/dL (75-99)
[2020-10-28] MEDS ORDERED: ONDANSETRON 4 MG/2 ML VIAL IVP STA (23:43)
[2020-10-28] MEDS ORDERED: SODIUM CHLORIDE 0.9% 1,000 ML IV STA (23:43)
[2020-10-28] MEDS ORDERED: MORPHINE SULFATE 4 MG/ML SYRINGE IVP STA (23:52)
--- NOTE | 2020-10-28 23:55 | ED ---
Abdominal Pain HPI - General Chief Complaint: Abdominal Pain Stated Complaint: Hyperglycemia Time Seen by Provider: 10/28/20 23:32 Source: patient Mode of arrival: ambulatory Limitations: no limitations - History of Present Illness Initial Comments: 45-year-old female with history of diabetes and nephrolithiasis presents to emergency Department with a chief complaint of abdominal pain and high blood sugar. Patient reports she has been out of her rapid acting insulin over the last 2 days in sugars been consistently High. States she finally received her insulin today and took 7 units prior to arrival. Before she came supposedly the sugar was in the mid 400s. Patient also reports right-sided flank pain since yesterday as well. States this feels like her typical kidney stone pain in the right flank radiating to the groin. She denies any hematuria, hematochezia or melena. There reports nausea multiple episodes of nonbilious and on bloody vo miting. States she took Toradol and Percocet prior to ED arrival. States she has an appointment with her urologist on Sunday. - Related Data Home Medications Medication Instructions Recorded Confirmed oxyCODONE-APAP 10-325MG [Percocet 1 tab PO Q6H PRN 08/29/17 04/21/20 10-325 mg] PARoxetine HCL [Paxil] 40 mg PO DAILY 03/12/18 04/21/20 Topiramate [Topamax] 100 mg PO BID 03/12/18 04/21/20 PARoxetine [Paxil] 20 mg PO DAILY 06/04/18 04/21/20 Atorvastatin [Lipitor] 40 mg PO DAILY 07/16/19 04/21/20 Insulin Glargine,Hum.rec.anlog 40 unit SQ HS 01/26/20 04/21/20 [Basaglar Kwikpen U-100] lisinopriL [Zestril] 10 mg PO DAILY 01/26/20 04/21/20 Montelukast [Singulair] 10 mg PO DAILY 02/09/20 04/21/20 ARIPiprazole [Abilify] 15 mg PO HS 04/04/20 04/21/20 Insulin Lispro [Admelog Solostar] 6 units SQ AC-TID 04/04/20 04/21/20 Mirtazapine 7.5 mg PO HS 04/04/20 04/21/20 OXcarbazepine [Trileptal] 300 mg PO BID 04/04/20 04/21/20 metFORMIN HCL 1,000 mg PO BID 04/04/20 04/21/20 Loratadine 10 mg PO DAILY 04/21/20 04/21/20 Previous Rx's Medication Instructions Recorded SUMAtriptan succinate [Imitrex] 100 mg PO DAILY PRN tab 08/02/17 Ciprofloxacin HCl [Cipro] 500 mg PO Q12HR 1 Days #6 tab 05/27/20 Clindamycin Gel [Clindamycin 1 applic TOPICAL BID #1 tube 09/09/20 Phosphate 1% Gel] Fluconazole [Diflucan] 150 mg PO ONCE #1 tab 10/15/20 Allergies Allergy/AdvReac Type Severity Reaction Status Date / Time bupropion HCl Allergy Rash/Hives Verified 10/28/20 23:27 [From Wellbutrin] divalproex sodium Allergy Unknown Verified 10/28/20 23:27 [From Depakote] fentanyl Allergy Swelling Verified 10/28/20 23:27 Iodinated Contrast Media Allergy Anaphylaxis Verified 10/28/20 23:27 [Iodinated Contrast Media - IV Dye] orange juice [[place]] Allergy Rash/Hives Verified 10/28/20 23:27 Sulfa (Sulfonamide Allergy Rash/Hives Verified 10/28/20 23:27 Antibiotics) Penicillins AdvReac Nausea & Verified 10/28/20 23:27 Vomiting Review of Systems ROS Statement: Those systems with pertinent positive or pertinent negative responses have been documented in the HPI. ROS Other: All systems not noted in ROS Statement are negative. 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 History of Any Multi-Drug Resistant Organisms: ESBL Date of last positivie culture/infection: 05/14/17 MDRO Source:: ESBL URINE, Past Surgical History: Bladder Surgery, Section, Cholecystectomy, Hysterectomy, Orthopedic Surgery, Tubal Ligation Additional Past Surgical History / Comment(s): R ovarian cystectomy, laparoscopic surgery for L ovary that had attached to the bowel, D&C, numerous lithotripsies, nephroscopies, cystoscopies and stents to ureters-none in place at this time, L robotic pyeloplasty with post op infection around kidney which then required a picc line/later removed (pt states was not MRSA), L rotator cuff repair, L wrist tendon surgery, colonoscopy Past Anesthesia/Blood Transfusion Reactions: Family History of Problems w/ Anesthesia Additional Past Anesthesia/Blood Transfusion Reaction / Comment(s): dad-hard time waking up due to enzyme problems in liver Past Psychological History: ADD/ADHD, Anxiety, Bipolar, Depression, PTSD Smoking Status: Current every day smoker Past Alcohol Use History: None Reported Past Drug Use History: None Reported - Past Family History Brother(s) Family Medical History: Cancer Additional Family Medical History / Comment(s): testicular Father Family Medical History: Coronary Artery Disease (CAD), CVA/TIA, Diabetes Mellitus, Renal Disease Additional Family Medical History / Comment(s): GLAUCOMA,NEUROPATHY HAD TRIPLE CABG, at 56yrs from renal disease. Mother Family Medical History: Hyperlipidemia Additional Family Medical History / Comment(s): DDD, HAD 3 vessel CABG AGE 54. General Exam Limitations: no limitations General appearance: alert, in no apparent distress, obese Head exam: Present: atraumatic, normocephalic, normal inspection Eye exam: Present: normal appearance, PERRL, EOMI Pupils: Present: normal accommodation ENT exam: Present: normal exam, normal oropharynx, mucous membranes moist, TM's normal bilaterally, normal external ear exam Neck exam: Present: normal inspection, full ROM. Absent: tenderness Respiratory exam: Present: normal lung sounds bilaterally. Absent: respiratory distress, wheezes, rales, rhonchi, stridor, chest wall tenderness, accessory muscle use Cardiovascular Exam: Present: regular rate, normal rhythm, normal heart sounds. Absent: systolic murmur GI/Abdominal exam: Present: soft, tenderness (Right-sided pain). Absent: d istended, guarding, rebound, rigid Extremities exam: Present: normal inspection, full ROM, normal capillary refill. Absent: tenderness, pedal edema, joint swelling Back exam: Present: normal inspection, full ROM, tenderness, CVA tenderness (R). Absent: CVA tenderness (L), muscle spasm, paraspinal tenderness, vertebral tenderness Neurological exam: Present: alert, oriented X3, normal gait Psychiatric exam: Present: normal affect, normal mood Skin exam: Present: warm, dry, intact, normal color Course Vital Signs 10/28/20 10/29/20 23:25 01:07 Temperature 97.3 F L Pulse Rate 106 H 88 Respiratory 20 16 Rate Blood Pressure 132/78 122/80 O2 Sat by Pulse 99 98 Oximetry Medical Decision Making - Medical Decision Making 45-year-old female with history of renal stones and diabetes presents to the emergency department a chief complaint of abdominal pain and high blood sugar. On physical examination, she has right CVA tenderness. Patient developed emergency department for her frequent visits. CBC reveals mild leukocytosis, likely reactive pseudovomiting. Blood sugar is 260. UA shows no ketones. Anion gap 12. She does have hematuria which seems to persistent with her recurrent episodes of nephrolithiasis. Patient was given IV fluids, antiemetics and analgesia. On reevaluation, patient reports improvement in symptoms. She was offered imaging, she declined. She will follow up with a urologist on Sunday. Return parameters were discussed with patient was understanding and agreeable. Case discussed with - Lab Data Result diagrams: 10/29/20 00:05 10/29/20 00:05 Lab Results 10/28/20 10/28/20 10/29/20 Range/Units 23:31 23:33 00:05 WBC 12.1 H (3.8-10.6) k/uL RBC 5.02 (3.80-5.40) m/uL Hgb 14.7 (11.4-16.0) gm/dL Hct 43.5 (34.0-46.0) % MCV 86.6 (80.0-100.0) fL MCH 29.2 (25.0-35.0) pg MCHC 33.7 (31.0-37.0) g/dL RDW 12.9 (11.5-15.5) % Plt Count 242 (150-450) k/uL MPV 7.1 Neutrophils % 50 % Lymphocytes % 41 % Monocytes % 4 % Eosinophils % 3 % Basophils % 1 % Neutrophils # 6.0 (1.3-7.7) k/uL Lymphocytes # 5.0 H (1.0-4.8) k/uL Monocytes # 0.5 (0-1.0) k/uL Eosinophils # 0.3 (0-0.7) k/uL Basophils # 0.1 (0-0.2) k/uL Sodium (137-145) mmol/L Potassium (3.5-5.1) mmol/L Chloride (98-107) mmol/L Carbon Dioxide (22-30) mmol/L Anion Gap mmol/L BUN (7-17) mg/dL Creatinine (0.52-1.04) mg/dL Est GFR (CKD-EPI)AfAm (>60 ml/min/1.73 sqM) Est GFR (CKD-EPI)NonAf (>60 ml/min/1.73 sqM) Glucose (74-99) mg/dL POC Glucose (mg/dL) 268 H (75-99) mg/dL POC Glu Fiber Technician ID Mariza Riley Calcium (8.4-10.2) mg/dL Total Bilirubin (0.2-1.3) mg/dL AST (14-36) U/L ALT (4-34) U/L Alkaline Phosphatase (38-126) U/L Total Protein (6.3-8.2) g/dL Albumin (3.5-5.0) g/dL Amylase (30-110) U/L Lipase (23-300) U/L Urine Color Yellow Urine Appearance Cloudy H (Clear) Urine pH 6.5 (5.0-8.0) Ur Specific [place] 1.015 (1.001-1.035) Urine Protein Trace H (Negative) Urine Glucose (UA) 3+ H (Negative) Urine Ketones Negative (Negative) Urine Blood Large H (Negative) Urine Nitrite Negative (Negative) Urine Bilirubin Negative (Negative) Urine Urobilinogen 3.0 (<2.0) mg/dL Ur Leukocyte Esterase Negative (Negative) Urine RBC >182 H (0-5) /hpf Urine WBC 5 (0-5) /hpf Ur Squamous Epith Cells 4 (0-4) /hpf Urine Bacteria Occasional H (None) /hpf 10/29/20 Range/Units 00:05 WBC (3.8-10.6) k/uL RBC (3.80-5.40) m/uL Hgb (11.4-16.0) gm/dL Hct (34.0-46.0) % MCV (80.0-100.0) fL MCH (25.0-35.0) pg MCHC (31.0-37.0) g/dL RDW (11.5-15.5) % Plt Count (150-450) k/uL MPV Neutrophils % % Lymphocytes % % Monocytes % % Eosinophils % % Basophils % % Neutrophils # (1.3-7.7) k/uL Lymphocytes # (1.0-4.8) k/uL Monocytes # (0-1.0) k/uL Eosinophils # (0-0.7) k/uL Basophils # (0-0.2) k/uL Sodium 137 (137-145) mmol/L Potassium 3.6 (3.5-5.1) mmol/L Chloride 103 (98-107) mmol/L Carbon Dioxide 22 (22-30) mmol/L Anion Gap 12 mmol/L BUN 11 (7-17) mg/dL Creatinine 0.69 (0.52-1.04) mg/dL Est GFR (CKD-EPI)AfAm >90 (>60 ml/min/1.73 sqM) Est GFR (CKD-EPI)NonAf >90 (>60 ml/min/1.73 sqM) Glucose 268 H (74-99) mg/dL POC Glucose (mg/dL) (75-99) mg/dL POC Glu Fiber Technician ID Calcium 9.9 (8.4-10.2) mg/dL Total Bilirubin 0.5 (0.2-1.3) mg/dL AST 41 H (14-36) U/L ALT 42 H (4-34) U/L Alkaline Phosphatase 115 (38-126) U/L Total Protein 7.0 (6.3-8.2) g/dL Albumin 4.4 (3.5-5.0) g/dL Amylase 58 (30-110) U/L Lipase 202 (23-300) U/L Urine Color Urine Appearance (Clear) Urine pH (5.0-8.0) Ur Specific [place] (1.001-1.035) Urine Protein (Negative) Urine Glucose (UA) (Negative) Urine Ketones (Negative) Urine Blood (Negative) Urine Nitrite (Negative) Urine Bilirubin (Negative) Urine Urobilinogen (<2.0) mg/dL Ur Leukocyte Esterase (Negative) Urine RBC (0-5) /hpf Urine WBC (0-5) /hpf Ur Squamous Epith Cells (0-4) /hpf Urine Bacteria (None) /hpf Disposition Clinical Impression: Flank pain, Hematuria, Hyperglycemia Disposition: HOME SELF-CARE Condition: Stable Instructions (If sedation given, give patient instructions): Abdominal Pain (ED) Additional Instructions: Please return to the Emergency Department if symptoms worsen or any other concerns. Is patient prescribed a controlled substance at d/c from ED?: No Referrals: Elida Basurto MD [Primary Care Provider] - 1-2 days Time of Disposition: 00:58
[2020-10-29 00:01] LABS: Appearance,Urine Cloudy (Clear); Bacteria,Urine Occasional /hpf; Bilirubin,Urine Negative (Negative); Blood,Urine Large (Negative); Color,Urine Yellow; Glucose,Urine (UA) 3+ (Negative); Ketones,Urine Negative (Negative); Leukocyte Esterase,Urine Negative (Negative); Nitrite,Urine Negative (Negative); PH, Urine 6.5 (5.0-8.0); Protein,Urine Trace (Negative); RBC,Urine >182 /hpf (0-5); Specific Gravity,Urine 1.015 (1.001-1.035); Squamous Epithelial Cell,Urine 4 /hpf (0-4); WBC,Urine 5 /hpf (0-5)
[2020-10-29 00:17] LABS: Basophils # (A) 0.1 k/uL (0-0.2); Basophils % (A) 1 %; Eosinophils # (A) 0.3 k/uL (0-0.7); Eosinophils % (A) 3 %; HCT 43.5 % (34.0-46.0); HGB 14.7 gm/dL (11.4-16.0); Lymphocytes % (A) 41 %; MCH 29.2 pg (25.0-35.0); MCHC 33.7 g/dL (31.0-37.0); MCV 86.6 fL (80.0-100.0); Mean Platelet Volume 7.1; Monocytes # (A) 0.5 k/uL (0-1.0); Monocytes % (A) 4 %; Neutrophils % (A) 50 %; Platelet Count 242 k/uL (150-450); RBC 5.02 m/uL (3.80-5.40); RDW 12.9 % (11.5-15.5); WBC 12.1 k/uL (3.8-10.6)
[2020-10-29 00:30] LABS: ALT 42 U/L (4-34); AST 41 U/L (14-36); African American GFR (CKD) >90 (>60 ml/min/1.73 sqM); Albumin 4.4 g/dL (3.5-5.0); Alkaline Phosphatase 115 U/L (38-126); Amylase 58 U/L (30-110); Anion Gap 12 mmol/L; Blood Urea Nitrogen 11 mg/dL (7-17); Calcium 9.9 mg/dL (8.4-10.2); Carbon Dioxide 22 mmol/L (22-30); Chloride 103 mmol/L (98-107); Glucose 268 mg/dL (74-99); Lipase 202 U/L (23-300); Non-African American GFR(CKD) >90 (>60 ml/min/1.73 sqM); Potassium 3.6 mmol/L (3.5-5.1); Sodium 137 mmol/L (137-145); Total Bilirubin 0.5 mg/dL (0.2-1.3)
[2020-10-29] MEDS ORDERED: KETOROLAC 15 MG/ML 1 ML VIAL IVP STA (01:00)
[2020-10-29 01:08] VITALS: BP 122/80; PULSE 88; RESP 16
== END 2020-10-29 01:12 | disposition home or self-care (01) ==
LOC: EC 23:19
DX: E11.65 Type 2 diabetes mellitus with hyperglycemia (principal); R31.9 Hematuria, unspecified; E78.5 Hyperlipidemia, unspecified; F17.200 Nicotine dependence, unspecified, uncomplicated; F32.9 Major depressive disorder, single episode, unspecified; F41.9 Anxiety disorder, unspecified; I10 Essential (primary) hypertension; K21.9 Gastro-esophageal reflux disease without esophagitis; Z79.4 Long term (current) use of insulin; Z87.442 Personal history of urinary calculi; Z90.49 Acquired absence of other specified parts of digestive tract; Z90.710 Acquired absence of both cervix and uterus; Z98.51 Tubal ligation status
CPT/HCPCS: 36415; 80053; 82150; 83690; 85025; 81001; 99284; 96374; 96375 ×2; J2270; J2405; J1885

== ENCOUNTER 2020-11-05 03:10 | Emergency (ER) | payer BC, OTHER ==
[2020-11-05 03:19] VITALS: RESP 16
[2020-11-05] MEDS ORDERED: MORPHINE SULFATE 4 MG/ML SYRINGE IV STA (03:56)
--- NOTE | 2020-11-05 03:59 | ED ---
Abdominal Pain HPI - General Chief Complaint: Abdominal Pain Stated Complaint: RT side kidney stones Time Seen by Provider: 11/05/20 03:49 Source: patient Mode of arrival: ambulatory Limitations: no limitations - History of Present Illness MD Complaint: abdominal pain -: hour(s) (15) Location: R flank Radiation: RLQ Migration to: no migration Severity: severe Quality: sharp Consistency: colicky Improves With: nothing Worsens With: nothing Associated Symptoms: nausea, hematuria - Related Data Home Medications Medication Instructions Recorded Confirmed oxyCODONE-APAP 10-325MG [Percocet 1 tab PO Q6H PRN 08/29/17 04/21/20 10-325 mg] PARoxetine HCL [Paxil] 40 mg PO DAILY 03/12/18 04/21/20 Topiramate [Topamax] 100 mg PO BID 03/12/18 04/21/20 PARoxetine [Paxil] 20 mg PO DAILY 06/04/18 04/21/20 Atorvastatin [Lipitor] 40 mg PO DAILY 07/16/19 04/21/20 Insulin Glargine,Hum.rec.anlog 40 unit SQ HS 01/26/20 04/21/20 [Basaglar Kwikpen U-100] lisinopriL [Zestril] 10 mg PO DAILY 01/26/20 04/21/20 Montelukast [Singulair] 10 mg PO DAILY 02/09/20 04/21/20 ARIPiprazole [Abilify] 15 mg PO HS 04/04/20 04/21/20 Insulin Lispro [Admelog Solostar] 6 units SQ AC-TID 04/04/20 04/21/20 Mirtazapine 7.5 mg PO HS 04/04/20 04/21/20 OXcarbazepine [Trileptal] 300 mg PO BID 04/04/20 04/21/20 metFORMIN HCL 1,000 mg PO BID 04/04/20 04/21/20 Loratadine 10 mg PO DAILY 04/21/20 04/21/20 Previous Rx's Medication Instructions Recorded SUMAtriptan succinate [Imitrex] 100 mg PO DAILY PRN tab 08/02/17 Ciprofloxacin HCl [Cipro] 500 mg PO Q12HR 1 Days #6 tab 05/27/20 Clindamycin Gel [Clindamycin 1 applic TOPICAL BID #1 tube 03/18/21 Phosphate 1% Gel] Fluconazole [Diflucan] 150 mg PO ONCE #1 tab 10/15/20 Allergies Allergy/AdvReac Type Severity Reaction Status Date / Time bupropion HCl Allergy Rash/Hives Verified 11/05/20 03:17 [From Wellbutrin] divalproex sodium Allergy Unknown Verified 11/05/20 03:17 [From Depakote] fentanyl Allergy Swelling Verified 11/05/20 03:17 Iodinated Contrast Media Allergy Anaphylaxis Verified 11/05/20 03:17 [Iodinated Contrast Media - IV Dye] orange juice [[place]] Allergy Rash/Hives Verified 11/05/20 03:17 Sulfa (Sulfonamide Allergy Rash/Hives Verified 11/05/20 03:17 Antibiotics) Penicillins AdvReac Nausea & Verified 11/05/20 03:17 Vomiting Review of Systems ROS Statement: Those systems with pertinent positive or pertinent negative responses have been documented in the HPI. ROS Other: All systems not noted in ROS Statement are negative. Constitutional: Denies: fever, chills Respiratory: Denies: cough, dyspnea Cardiovascular: Denies: chest pain, palpitations, edema Gastrointestinal: Reports: as per HPI, abdominal pain, nausea, vomiting. Denies: diarrhea, constipation, melena, hematochezia Genitourinary: Reports: frequency, hematuria. 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 History of Any Multi-Drug Resistant Organisms: ESBL Date of last positivie culture/infection: 05/14/17 MDRO Source:: ESBL URINE, Past Surgical History: Bladder Surgery, Section, Cholecystectomy, Hysterectomy, Orthopedic Surgery, Tubal Ligation Additional Past Surgical History / Comment(s): R ovarian cystectomy, laparoscopic surgery for L ovary that had attached to the bowel, D&C, numerous lithotripsies, nephroscopies, cystoscopies and stents to ureters-none in place at this time, L robotic pyeloplasty with post op infection around kidney which then required a picc line/later removed (pt states was not MRSA), L rotator cuff repair, L wrist tendon surgery, colonoscopy Past Anesthesia/Blood Transfusion Reactions: Family History of Problems w/ Anesthesia Additional Past Anesthesia/Blood Transfusion Reaction / Comment(s): dad-hard time waking up due to enzyme problems in liver Past Psychological History: ADD/ADHD, Anxiety, Bipolar, Depression, PTSD Smoking Status: Current every day smoker Past Alcohol Use History: None Reported Past Drug Use History: None Reported - Past Family History Brother(s) Family Medical History: Cancer Additional Family Medical History / Comment(s): testicular Father Family Medical History: Coronary Artery Disease (CAD), CVA/TIA, Diabetes Mellitus, Renal Disease Additional Family Medical History / Comment(s): GLAUCOMA,NEUROPATHY HAD TRIPLE CABG, at 56yrs from renal disease. Mother Family Medical History: Hyperlipidemia Additional Family Medical History / Comment(s): DDD, HAD 3 vessel CABG AGE 54. General Exam Limitations: no limitations General appearance: alert, in no apparent distress Head exam: Present: atraumatic, normocephalic Eye exam: Present: normal appearance. Absent: scleral icterus, conjunctival injection Neck exam: Present: normal inspection Respiratory exam: Present: normal lung sounds bilaterally. Absent: respiratory distress, wheezes, rales, rhonchi, stridor Cardiovascular Exam: Present: regular rate, normal rhythm, normal heart sounds. Absent: systolic murmur, diastolic murmur, rubs, gallop GI/Abdominal exam: Present: soft. Absent: distended, tenderness, guarding, rebound, rigid, mass, pulsatile mass Extremities exam: Present: normal inspection, normal capillary refill. Absent: pedal edema, calf tenderness Back exam: Present: normal inspection. Absent: CVA tenderness (R), CVA tenderness (L) Neurological exam: Present: alert Skin exam: Present: warm, dry, intact, normal color. Absent: rash Course Vital Signs 11/05/20 03:17 Temperature 97.9 F Pulse Rate 108 H Respiratory 16 Rate Blood Pressure 115/70 O2 Sat by Pulse 96 Oximetry Medical Decision Making - Lab Data Result diagrams: 11/05/20 04:12 11/05/20 04:12 Lab Results 11/05/20 11/05/20 11/05/20 Range/Units 04:12 04:12 04:12 WBC 10.3 (3.8-10.6) k/uL RBC 4.59 (3.80-5.40) m/uL Hgb 14.2 (11.4-16.0) gm/dL Hct 40.2 (34.0-46.0) % MCV 87.7 (80.0-100.0) fL MCH 31.0 (25.0-35.0) pg MCHC 35.3 (31.0-37.0) g/dL RDW 12.3 (11.5-15.5) % Plt Count 221 (150-450) k/uL MPV 7.6 Neutrophils % 48 % Lymphocytes % 42 % Monocytes % 5 % Eosinophils % 4 % Basophils % 1 % Neutrophils # 5.0 (1.3-7.7) k/uL Lymphocytes # 4.3 (1.0-4.8) k/uL Monocytes # 0.5 (0-1.0) k/uL Eosinophils # 0.4 (0-0.7) k/uL Basophils # 0.1 (0-0.2) k/uL Sodium (137-145) mmol/L Potassium (3.5-5.1) mmol/L Chloride (98-107) mmol/L Carbon Dioxide (22-30) mmol/L Anion Gap mmol/L BUN (7-17) mg/dL Creatinine (0.52-1.04) mg/dL Est GFR (CKD-EPI)AfAm (>60 ml/min/1.73 sqM) Est GFR (CKD-EPI)NonAf (>60 ml/min/1.73 sqM) Glucose (74-99) mg/dL Calcium (8.4-10.2) mg/dL Urine Color Light Red Urine Appearance Turbid H (Clear) Urine pH 5.5 (5.0-8.0) Ur Specific [place] 1.026 (1.001-1.035) Urine Protein 1+ H (Negative) Urine Glucose (UA) Negative (Negative) Urine Ketones Trace H (Negative) Urine Blood Large H (Negative) Urine Nitrite Negative (Negative) Urine Bilirubin Negative (Negative) Urine Urobilinogen 3.0 (<2.0) mg/dL Ur Leukocyte Esterase Small H (Negative) Urine RBC >182 H (0-5) /hpf Urine WBC 12 H (0-5) /hpf Ur Squamous Epith Cells 12 H (0-4) /hpf Calcium Oxalate Crystal Many H (None) /hpf Urine Bacteria Rare H (None) /hpf Urine Yeast ([place]) Moderate H (None) /hpf Urine HCG, Qual Not Detected (Not Detectd) 11/05/20 Range/Units 04:12 WBC (3.8-10.6) k/uL RBC (3.80-5.40) m/uL Hgb (11.4-16.0) gm/dL Hct (34.0-46.0) % MCV (80.0-100.0) fL MCH (25.0-35.0) pg MCHC (31.0-37.0) g/dL RDW (11.5-15.5) % Plt Count (150-450) k/uL MPV Neutrophils % % Lymphocytes % % Monocytes % % Eosinophils % % Basophils % % Neutrophils # (1.3-7.7) k/uL Lymphocytes # (1.0-4.8) k/uL Monocytes # (0-1.0) k/uL Eosinophils # (0-0.7) k/uL Basophils # (0-0.2) k/uL Sodium 137 (137-145) mmol/L Potassium 3.9 (3.5-5.1) mmol/L Chloride 105 (98-107) mmol/L Carbon Dioxide 20 L (22-30) mmol/L Anion Gap 12 mmol/L BUN 11 (7-17) mg/dL Creatinine 0.61 (0.52-1.04) mg/dL Est GFR (CKD-EPI)AfAm >90 (>60 ml/min/1.73 sqM) Est GFR (CKD-EPI)NonAf >90 (>60 ml/min/1.73 sqM) Glucose 257 H (74-99) mg/dL Calcium 9.3 (8.4-10.2) mg/dL Urine Color Urine Appearance (Clear) Urine pH (5.0-8.0) Ur Specific [place] (1.001-1.035) Urine Protein (Negative) Urine Glucose (UA) (Negative) Urine Ketones (Negative) Urine Blood (Negative) Urine Nitrite (Negative) Urine Bilirubin (Negative) Urine Urobilinogen (<2.0) mg/dL Ur Leukocyte Esterase (Negative) Urine RBC (0-5) /hpf Urine WBC (0-5) /hpf Ur Squamous Epith Cells (0-4) /hpf Calcium Oxalate Crystal (None) /hpf Urine Bacteria (None) /hpf Urine Yeast (Budding) (None) /hpf Urine HCG, Qual (Not Detectd) Disposition Clinical Impression: Flank pain Disposition: HOME SELF-CARE Condition: Good Instructions (If sedation given, give patient instructions): Abdominal Pain (ED) Is patient prescribed a controlled substance at d/c from ED?: No Referrals: Elida Basurto MD [Primary Care Provider] - 1-2 days
[2020-11-05 04:25] LABS: Basophils # (A) 0.1 k/uL (0-0.2); Basophils % (A) 1 %; Eosinophils # (A) 0.4 k/uL (0-0.7); Eosinophils % (A) 4 %; HCT 40.2 % (34.0-46.0); HGB 14.2 gm/dL (11.4-16.0); Lymphocytes # (A) 4.3 k/uL (1.0-4.8); Lymphocytes % (A) 42 %; MCHC 35.3 g/dL (31.0-37.0); MCV 87.7 fL (80.0-100.0); Mean Platelet Volume 7.6; Monocytes # (A) 0.5 k/uL (0-1.0); Monocytes % (A) 5 %; Neutrophils % (A) 48 %; Platelet Count 221 k/uL (150-450); RBC 4.59 m/uL (3.80-5.40); RDW 12.3 % (11.5-15.5); WBC 10.3 k/uL (3.8-10.6)
[2020-11-05 04:34] LABS: African American GFR (CKD) >90 (>60 ml/min/1.73 sqM); Anion Gap 12 mmol/L; Blood Urea Nitrogen 11 mg/dL (7-17); Calcium 9.3 mg/dL (8.4-10.2); Carbon Dioxide 20 mmol/L (22-30); Chloride 105 mmol/L (98-107); Glucose 257 mg/dL (74-99); Non-African American GFR(CKD) >90 (>60 ml/min/1.73 sqM); Potassium 3.9 mmol/L (3.5-5.1); Sodium 137 mmol/L (137-145)
[2020-11-05 04:37] LABS: Appearance,Urine Turbid (Clear); Bacteria,Urine Rare /hpf; Bilirubin,Urine Negative (Negative); Blood,Urine Large (Negative); Budding Yeast,Urine Moderate /hpf; Calcium Oxalate Crystals,Urine Many /hpf; Color,Urine Light Red; Glucose,Urine (UA) Negative (Negative); Ketones,Urine Trace (Negative); Leukocyte Esterase,Urine Small (Negative); Nitrite,Urine Negative (Negative); PH, Urine 5.5 (5.0-8.0); Protein,Urine 1+ (Negative); RBC,Urine >182 /hpf (0-5); Specific Gravity,Urine 1.026 (1.001-1.035); Squamous Epithelial Cell,Urine 12 /hpf (0-4); WBC,Urine 12 /hpf (0-5)
[2020-11-05 06:30] VITALS: BP 109/72; PULSE 98; TEMP 97.5
== END 2020-11-05 06:25 | disposition home or self-care (01) ==
LOC: EC 03:10
DX: R10.31 Right lower quadrant pain (principal); R31.9 Hematuria, unspecified; R11.2 Nausea with vomiting, unspecified; E11.9 Type 2 diabetes mellitus without complications; K21.9 Gastro-esophageal reflux disease without esophagitis; I10 Essential (primary) hypertension; E78.5 Hyperlipidemia, unspecified; G43.909 Migraine, unspecified, not intractable, without status migrainosus; F41.9 Anxiety disorder, unspecified; F32.9 Major depressive disorder, single episode, unspecified; F90.9 Attention-deficit hyperactivity disorder, unspecified type; F17.200 Nicotine dependence, unspecified, uncomplicated; Z87.442 Personal history of urinary calculi; Z87.19 Personal history of other diseases of the digestive system; Z79.4 Long term (current) use of insulin; Z79.899 Other long term (current) drug therapy; Z88.0 Allergy status to penicillin
CPT/HCPCS: 36415; 80048; 85025; 81001; 81025; 99284; 96374; J2270

== ENCOUNTER 2020-11-11 17:09 | Emergency (ER) | payer BC, OTHER ==
[2020-11-11 17:27] VITALS: RESP 18
[2020-11-11 18:20] LABS: Appearance,Urine Turbid (Clear); Bacteria,Urine Occasional /hpf; Bilirubin,Urine Negative (Negative); Blood,Urine Large (Negative); Calcium Oxalate Crystals,Urine Few /hpf; Color,Urine Light Red; Glucose,Urine (UA) 3+ (Negative); Ketones,Urine 1+ (Negative); Leukocyte Esterase,Urine Small (Negative); Mucus,Urine Many /hpf; Nitrite,Urine Negative (Negative); PH, Urine 5.5 (5.0-8.0); Protein,Urine 1+ (Negative); RBC,Urine >182 /hpf (0-5); Specific Gravity,Urine 1.033 (1.001-1.035); Squamous Epithelial Cell,Urine 22 /hpf (0-4)
[2020-11-11] MEDS ORDERED: SODIUM CHLORIDE 0.9% 1,000 ML IV STA (19:10)
[2020-11-11] MEDS ORDERED: KETOROLAC 15 MG/ML 1 ML VIAL IVP STA (19:10)
[2020-11-11 19:46] LABS: Basophils # (A) 0.1 k/uL (0-0.2); Basophils % (A) 1 %; Eosinophils # (A) 0.3 k/uL (0-0.7); Eosinophils % (A) 3 %; HCT 40.3 % (34.0-46.0); HGB 14.2 gm/dL (11.4-16.0); Lymphocytes # (A) 3.9 k/uL (1.0-4.8); Lymphocytes % (A) 35 %; MCH 30.9 pg (25.0-35.0); MCHC 35.3 g/dL (31.0-37.0); MCV 87.4 fL (80.0-100.0); Mean Platelet Volume 6.9; Monocytes # (A) 0.5 k/uL (0-1.0); Monocytes % (A) 4 %; Neutrophils # (A) 6.4 k/uL (1.3-7.7); Neutrophils % (A) 57 %; Platelet Count 266 k/uL (150-450); RBC 4.61 m/uL (3.80-5.40); RDW 12.4 % (11.5-15.5); WBC 11.3 k/uL (3.8-10.6)
[2020-11-11 20:01] LABS: ALT 43 U/L (4-34); AST 60 U/L (14-36); African American GFR (CKD) >90 (>60 ml/min/1.73 sqM); Alkaline Phosphatase 116 U/L (38-126); Anion Gap 7 mmol/L; Blood Urea Nitrogen 10 mg/dL (7-17); Calcium 9.1 mg/dL (8.4-10.2); Carbon Dioxide 22 mmol/L (22-30); Chloride 109 mmol/L (98-107); Glucose 178 mg/dL (74-99); Non-African American GFR(CKD) >90 (>60 ml/min/1.73 sqM); Potassium 3.7 mmol/L (3.5-5.1); Sodium 138 mmol/L (137-145); Total Bilirubin 0.6 mg/dL (0.2-1.3); Total Protein 6.5 g/dL (6.3-8.2)
[2020-11-11] MEDS ORDERED: HYDROmorphone 0.5 MG/0.5 ML SYRINGE IVP STA (20:06)
--- NOTE | 2020-11-11 20:15 | ED ---
General Adult HPI - General Chief complaint: Back Pain/Injury Stated complaint: Kidney stones Time Seen by Provider: 11/11/20 18:51 Source: patient, RN notes reviewed Mode of arrival: ambulatory Limitations: no limitations - History of Present Illness Initial comments: 45-year-old female well known to this emergency room presents for right back pain. Patient has had right back pain since this morning. States she has a kidney stone. Patient states is exactly consistent with previous kidney stones. Patient also complaining of left groin pain. Patient states this has been there for quite some time. Patient recently had a CAT scan for possible hernia which was negative. Patient reports she will be following up with primary care for this.Patient has no other complaints at this time including shortness of breath, chest pain, abdominal pain, nausea or vomiting, headache, or visual changes. - Related Data Home Medications Medication Instructions Recorded Confirmed oxyCODONE-APAP 10-325MG [Percocet 1 tab PO Q6H PRN 08/29/17 04/21/20 10-325 mg] PARoxetine HCL [Paxil] 40 mg PO DAILY 03/12/18 04/21/20 Topiramate [Topamax] 100 mg PO BID 03/12/18 04/21/20 PARoxetine [Paxil] 20 mg PO DAILY 06/04/18 04/21/20 Atorvastatin [Lipitor] 40 mg PO DAILY 07/16/19 04/21/20 Insulin Glargine,Hum.rec.anlog 40 unit SQ HS 01/26/20 04/21/20 [Basaglar Kwikpen U-100] lisinopriL [Zestril] 10 mg PO DAILY 01/26/20 04/21/20 Montelukast [Singulair] 10 mg PO DAILY 02/09/20 04/21/20 ARIPiprazole [Abilify] 15 mg PO HS 04/04/20 04/21/20 Insulin Lispro [Admelog Solostar] 6 units SQ AC-TID 04/04/20 04/21/20 Mirtazapine 7.5 mg PO HS 04/04/20 04/21/20 OXcarbazepine [Trileptal] 300 mg PO BID 04/04/20 04/21/20 metFORMIN HCL 1,000 mg PO BID 04/04/20 04/21/20 Loratadine 10 mg PO DAILY 04/21/20 04/21/20 Previous Rx's Medication Instructions Recorded SUMAtriptan succinate [Imitrex] 100 mg PO DAILY PRN tab 08/02/17 Ciprofloxacin HCl [Cipro] 500 mg PO Q12HR 1 Days #6 tab 05/27/20 Clindamycin Gel [Clindamycin 1 applic TOPICAL BID #1 tube 09/09/20 Phosphate 1% Gel] Fluconazole [Diflucan] 150 mg PO ONCE #1 tab 10/15/20 Allergies Allergy/AdvReac Type Severity Reaction Status Date / Time bupropion HCl Allergy Rash/Hives Verified 11/11/20 17:24 [From Wellbutrin] divalproex sodium Allergy Unknown Verified 11/11/20 17:24 [From Depakote] fentanyl Allergy Swelling Verified 11/11/20 17:24 Iodinated Contrast Media Allergy Anaphylaxis Verified 11/11/20 17:24 [Iodinated Contrast Media - IV Dye] orange juice [[place]] Allergy Rash/Hives Verified 11/11/20 17:24 Sulfa (Sulfonamide Allergy Rash/Hives Verified 11/11/20 17:24 Antibiotics) Penicillins AdvReac Nausea & Verified 11/11/20 17:24 Vomiting Review of Systems ROS Statement: Those systems with pertinent positive or pertinent negative responses have been documented in the HPI. ROS Other: All systems not noted in ROS Statement are negative. 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 History of Any Multi-Drug Resistant Organisms: ESBL Date of last positivie culture/infection: 05/14/17 MDRO Source:: ESBL URINE, Past Surgical History: Bladder Surgery, Section, Cholecystectomy, Hysterectomy, Orthopedic Surgery, Tubal Ligation Additional Past Surgical History / Comment(s): R ovarian cystectomy, laparoscopic surgery for L ovary that had attached to the bowel, D&C, numerous lithotripsies, nephroscopies, cystoscopies and stents to ureters-none in place at this time, L robotic pyeloplasty with post op infection around kidney which then required a picc line/later removed (pt states was not MRSA), L rotator cuff repair, L wrist tendon surgery, colonoscopy Past Anesthesia/Blood Transfusion Reactions: Family History of Problems w/ Anesthesia Additional Past Anesthesia/Blood Transfusion Reaction / Comment(s): dad-hard time waking up due to enzyme problems in liver Past Psychological History: ADD/ADHD, Anxiety, Bipolar, Depression, PTSD Smoking Status: Current every day smoker Past Alcohol Use History: None Reported Past Drug Use History: None Reported - Past Family History Brother(s) Family Medical History: Cancer Additional Family Medical History / Comment(s): testicular Father Family Medical History: Coronary Artery Disease (CAD), CVA/TIA, Diabetes Mellitus, Renal Disease Additional Family Medical History / Comment(s): GLAUCOMA,NEUROPATHY HAD TRIPLE CABG, at 56yrs from renal disease. Mother Family Medical History: Hyperlipidemia Additional Family Medical History / Comment(s): DDD, HAD 3 vessel CABG AGE 54. General Exam Limitations: no limitations General appearance: alert, in no apparent distress Head exam: Present: atraumatic, normocephalic, normal inspection Eye exam: Present: normal appearance ENT exam: Present: normal exam, mucous membranes moist Neck exam: Present: normal inspection. Absent: tenderness, meningismus, lymphadenopathy Respiratory exam: Present: normal lung sounds bilaterally. Absent: respiratory distress, wheezes, rales, rhonchi, stridor Cardiovascular Exam: Present: regular rate, normal rhythm, normal heart sounds. Absent: systolic murmur, diastolic murmur, rubs, gallop, clicks GI/Abdominal exam: Present: soft, normal bowel sounds. Absent: distended, tenderness, guarding, rebound, rigid, hernia (Left groin is normal, no hernia palpated.) Course Vital Signs 11/11/20 17:25 Temperature 97.7 F Pulse Rate 79 Respiratory 18 Rate Blood Pressure 129/83 O2 Sat by Pulse 99 Oximetry Medical Decision Making - Medical Decision Making Vitals are stable. Laboratory evaluation unremarkable. Patient does have blood in her urine likely secondary to possible stone. Patient was treated with pain medication. Will follow up with her doctor. Will return for any worsening symptoms. - Lab Data Result diagrams: 11/11/20 19:40 11/11/20 19:40 Lab Results 11/11/20 11/11/20 11/11/20 Range/Units 18:01 19:40 19:40 WBC 11.3 H (3.8-10.6) k/uL RBC 4.61 (3.80-5.40) m/uL Hgb 14.2 (11.4-16.0) gm/dL Hct 40.3 (34.0-46.0) % MCV 87.4 (80.0-100.0) fL MCH 30.9 (25.0-35.0) pg MCHC 35.3 (31.0-37.0) g/dL RDW 12.4 (11.5-15.5) % Plt Count 266 (150-450) k/uL MPV 6.9 Neutrophils % 57 % Lymphocytes % 35 % Monocytes % 4 % Eosinophils % 3 % Basophils % 1 % Neutrophils # 6.4 (1.3-7.7) k/uL Lymphocytes # 3.9 (1.0-4.8) k/uL Monocytes # 0.5 (0-1.0) k/uL Eosinophils # 0.3 (0-0.7) k/uL Basophils # 0.1 (0-0.2) k/uL Sodium 138 (137-145) mmol/L Potassium 3.7 (3.5-5.1) mmol/L Chloride 109 H (98-107) mmol/L Carbon Dioxide 22 (22-30) mmol/L Anion Gap 7 mmol/L BUN 10 (7-17) mg/dL Creatinine 0.55 (0.52-1.04) mg/dL Est GFR (CKD-EPI)AfAm >90 (>60 ml/min/1.73 sqM) Est GFR (CKD-EPI)NonAf >90 (>60 ml/min/1.73 sqM) Glucose 178 H (74-99) mg/dL Calcium 9.1 (8.4-10.2) mg/dL Total Bilirubin 0.6 (0.2-1.3) mg/dL AST 60 H (14-36) U/L ALT 43 H (4-34) U/L Alkaline Phosphatase 116 (38-126) U/L Total Protein 6.5 (6.3-8.2) g/dL Albumin 4.0 (3.5-5.0) g/dL Urine Color Light Red Urine Appearance Turbid H (Clear) Urine pH 5.5 (5.0-8.0) Ur Specific [place] 1.033 (1.001-1.035) Urine Protein 1+ H (Negative) Urine Glucose (UA) 3+ H (Negative) Urine Ketones 1+ H (Negative) Urine Blood Large H (Negative) Urine Nitrite Negative (Negative) Urine Bilirubin Negative (Negative) Urine Urobilinogen 3.0 (<2.0) mg/dL Ur Leukocyte Esterase Small H (Negative) Urine RBC >182 H (0-5) /hpf Ur Squamous Epith Cells 22 H (0-4) /hpf Calcium Oxalate Crystal Few H (None) /hpf Urine Bacteria Occasional H (None) /hpf Urine Mucus Many H (None) /hpf Disposition Clinical Impression: Hematuria Disposition: HOME SELF-CARE Condition: Good Instructions (If sedation given, give patient instructions): Hematuria (ED) Additional Instructions: Please follow-up with your doctor. Return to the emergency room for any worsening symptoms. Is patient prescribed a controlled substance at d/c from ED?: No Referrals: Elida Basurto MD [Primary Care Provider] - 1-2 days Time of Disposition: 20:15
[2020-11-11 20:37] VITALS: BP 131/81; PULSE 81; TEMP 97.8
== END 2020-11-11 20:37 | disposition home or self-care (01) ==
LOC: EC 17:09
DX: R31.9 Hematuria, unspecified (principal); E11.40 Type 2 diabetes mellitus with diabetic neuropathy, unspecified; E11.39 Type 2 diabetes mellitus with other diabetic ophthalmic complication; H42 Glaucoma in diseases classified elsewhere; E28.2 Polycystic ovarian syndrome; E78.5 Hyperlipidemia, unspecified; F31.9 Bipolar disorder, unspecified; F41.9 Anxiety disorder, unspecified; I10 Essential (primary) hypertension; K21.9 Gastro-esophageal reflux disease without esophagitis; F17.200 Nicotine dependence, unspecified, uncomplicated; Z87.442 Personal history of urinary calculi; Z79.4 Long term (current) use of insulin; Z82.49 Family history of ischemic heart disease and other diseases of the circulatory system; Z83.3 Family history of diabetes mellitus; Z83.49 Family history of other endocrine, nutritional and metabolic diseases; Z88.0 Allergy status to penicillin; Z88.2 Allergy status to sulfonamides; Z95.1 Presence of aortocoronary bypass graft
CPT/HCPCS: 36415; 80053; 85025; 81001; 99283; 96374; 96375; 96361; J1885; J1170

== ENCOUNTER 2020-11-14 21:09 | Emergency (ER) | payer BC, OTHER ==
[2020-11-14 21:12] VITALS: BP 151/90; PULSE 111; RESP 20; TEMP 98.9
[2020-11-14] MEDS ORDERED: HYDROmorphone 1 MG/ML 1 ML SYRINGE IM STA (21:41)
[2020-11-14] MEDS ORDERED: diphenhydrAMINE 50 MG CAP PO STA (21:41)
[2020-11-14] MEDS ORDERED: PROCHLORPERAZINE 10 MG TAB PO STA (21:41)
--- NOTE | 2020-11-14 21:42 | ED ---
Abdominal Pain HPI - General Chief Complaint: Abdominal Pain Stated Complaint: kidney stone Time Seen by Provider: 11/14/20 21:40 Source: patient Mode of arrival: ambulatory Limitations: no limitations - Related Data Home Medications Medication Instructions Recorded Confirmed oxyCODONE-APAP 10-325MG [Percocet 1 tab PO Q6H PRN 08/29/17 04/21/20 10-325 mg] PARoxetine HCL [Paxil] 40 mg PO DAILY 03/12/18 04/21/20 Topiramate [Topamax] 100 mg PO BID 03/12/18 04/21/20 PARoxetine [Paxil] 20 mg PO DAILY 06/04/18 04/21/20 Atorvastatin [Lipitor] 40 mg PO DAILY 07/16/19 04/21/20 Insulin Glargine,Hum.rec.anlog 40 unit SQ HS 01/26/20 04/21/20 [Basaglar Kwikpen U-100] lisinopriL [Zestril] 10 mg PO DAILY 01/26/20 04/21/20 Montelukast [Singulair] 10 mg PO DAILY 02/09/20 04/21/20 ARIPiprazole [Abilify] 15 mg PO HS 04/04/20 04/21/20 Insulin Lispro [Admelog Solostar] 6 units SQ AC-TID 04/04/20 04/21/20 Mirtazapine 7.5 mg PO HS 04/04/20 04/21/20 OXcarbazepine [Trileptal] 300 mg PO BID 04/04/20 04/21/20 metFORMIN HCL 1,000 mg PO BID 04/04/20 04/21/20 Loratadine 10 mg PO DAILY 04/21/20 04/21/20 Previous Rx's Medication Instructions Recorded SUMAtriptan succinate [Imitrex] 100 mg PO DAILY PRN tab 08/02/17 Ciprofloxacin HCl [Cipro] 500 mg PO Q12HR 1 Days #6 tab 05/27/20 Clindamycin Gel [Clindamycin 1 applic TOPICAL BID #1 tube 09/09/20 Phosphate 1% Gel] Fluconazole [Diflucan] 150 mg PO ONCE #1 tab 10/15/20 Allergies Allergy/AdvReac Type Severity Reaction Status Date / Time bupropion HCl Allergy Rash/Hives Verified 11/14/20 21:12 [From Wellbutrin] divalproex sodium Allergy Unknown Verified 11/14/20 21:12 [From Depakote] fentanyl Allergy Swelling Verified 11/14/20 21:12 Iodinated Contrast Media Allergy Anaphylaxis Verified 11/14/20 21:12 [Iodinated Contrast Media - IV Dye] orange juice [[place]] Allergy Rash/Hives Verified 11/14/20 21:12 Sulfa (Sulfonamide Allergy Rash/Hives Verified 11/14/20 21:12 Antibiotics) Penicillins AdvReac Nausea & Verified 11/14/20 21:12 Vomiting Review of Systems ROS Statement: Those systems with pertinent positive or pertinent negative responses have been documented in the HPI. ROS Other: All systems not noted in ROS Statement are negative. 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 History of Any Multi-Drug Resistant Organisms: ESBL Date of last positivie culture/infection: 05/14/17 MDRO Source:: ESBL URINE, Past Surgical History: Bladder Surgery, Section, Cholecystectomy, Hysterectomy, Orthopedic Surgery, Tubal Ligation Additional Past Surgical History / Comment(s): R ovarian cystectomy, laparoscopic surgery for L ovary that had attached to the bowel, D&C, numerous lithotripsies, nephroscopies, cystoscopies and stents to ureters-none in place at this time, L robotic pyeloplasty with post op infection around kidney which then required a picc line/later removed (pt states was not MRSA), L rotator cuff repair, L wrist tendon surgery, colonoscopy Past Anesthesia/Blood Transfusion Reactions: Family History of Problems w/ Anes thesia Additional Past Anesthesia/Blood Transfusion Reaction / Comment(s): dad-hard time waking up due to enzyme problems in liver Past Psychological History: ADD/ADHD, Anxiety, Bipolar, Depression, PTSD Smoking Status: Current every day smoker Past Alcohol Use History: None Reported Past Drug Use History: None Reported - Past Family History Brother(s) Family Medical History: Cancer Additional Family Medical History / Comment(s): testicular Father Family Medical History: Coronary Artery Disease (CAD), CVA/TIA, Diabetes Mellitus, Renal Disease Additional Family Medical History / Comment(s): GLAUCOMA,NEUROPATHY HAD TRIPLE CABG, at 56yrs from renal disease. Mother Family Medical History: Hyperlipidemia Additional Family Medical History / Comment(s): DDD, HAD 3 vessel CABG AGE 54. General Exam Limitations: no limitations Course Vital Signs 11/14/20 21:11 Temperature 98.9 F Pulse Rate 111 H Respiratory 20 Rate Blood Pressure 151/90 O2 Sat by Pulse 99 Oximetry Medical Decision Making - Lab Data Result diagrams: 11/14/20 21:55 Lab Results 11/14/20 Range/Units 21:55 Sodium 142 (137-145) mmol/L Potassium 4.0 (3.5-5.1) mmol/L Chloride 108 H (98-107) mmol/L Carbon Dioxide 21 L (22-30) mmol/L Anion Gap 13 mmol/L BUN 9 (7-17) mg/dL Creatinine 0.72 (0.52-1.04) mg/dL Est GFR (CKD-EPI)AfAm >90 (>60 ml/min/1.73 sqM) Est GFR (CKD-EPI)NonAf >90 (>60 ml/min/1.73 sqM) Glucose 146 H (74-99) mg/dL Calcium 10.2 (8.4-10.2) mg/dL Total Bilirubin 0.8 (0.2-1.3) mg/dL AST 50 H (14-36) U/L ALT 51 H (4-34) U/L Alkaline Phosphatase 115 (38-126) U/L Total Protein 7.2 (6.3-8.2) g/dL Albumin 4.6 (3.5-5.0) g/dL Disposition Clinical Impression: Flank pain Disposition: HOME SELF-CARE Condition: Good Instructions (If sedation given, give patient instructions): Flank Pain (ED) Is patient prescribed a controlled substance at d/c from ED?: No Referrals: Elida Basurto MD [Primary Care Provider] - 1-2 days
[2020-11-14] MEDS ORDERED: diphenhydrAMINE 50 MG/ML 1 ML VIAL IVP STA (21:49)
[2020-11-14] MEDS ORDERED: PROCHLORPERAZINE INJ 10 MG/2 ML VIAL IVP STA (21:49)
[2020-11-14 22:10] LABS: Basophils # (A) 0.1 k/uL (0-0.2); Basophils % (A) 1 %; Eosinophils # (A) 0.3 k/uL (0-0.7); Eosinophils % (A) 2 %; HCT 42.4 % (34.0-46.0); HGB 14.8 gm/dL (11.4-16.0); Lymphocytes # (A) 5.7 k/uL (1.0-4.8); Lymphocytes % (A) 39 %; MCH 30.8 pg (25.0-35.0); Monocytes # (A) 0.6 k/uL (0-1.0); Monocytes % (A) 4 %; Neutrophils # (A) 7.6 k/uL (1.3-7.7); Neutrophils % (A) 53 %; Platelet Count 325 k/uL (150-450); RBC 4.82 m/uL (3.80-5.40); RDW 12.5 % (11.5-15.5); WBC 14.4 k/uL (3.8-10.6)
[2020-11-14 22:21] LABS: ALT 51 U/L (4-34); AST 50 U/L (14-36); African American GFR (CKD) >90 (>60 ml/min/1.73 sqM); Albumin 4.6 g/dL (3.5-5.0); Alkaline Phosphatase 115 U/L (38-126); Anion Gap 13 mmol/L; Blood Urea Nitrogen 9 mg/dL (7-17); Calcium 10.2 mg/dL (8.4-10.2); Carbon Dioxide 21 mmol/L (22-30); Chloride 108 mmol/L (98-107); Glucose 146 mg/dL (74-99); Non-African American GFR(CKD) >90 (>60 ml/min/1.73 sqM); Sodium 142 mmol/L (137-145); Total Bilirubin 0.8 mg/dL (0.2-1.3); Total Protein 7.2 g/dL (6.3-8.2)
== END 2020-11-14 23:18 | disposition home or self-care (01) ==
LOC: EC 21:09
DX: R10.9 Unspecified abdominal pain (principal); F32.9 Major depressive disorder, single episode, unspecified; F17.200 Nicotine dependence, unspecified, uncomplicated; E11.9 Type 2 diabetes mellitus without complications; Z79.4 Long term (current) use of insulin; K21.9 Gastro-esophageal reflux disease without esophagitis; E78.5 Hyperlipidemia, unspecified; I10 Essential (primary) hypertension; Z90.49 Acquired absence of other specified parts of digestive tract; Z90.710 Acquired absence of both cervix and uterus; Z98.51 Tubal ligation status; F41.9 Anxiety disorder, unspecified
CPT/HCPCS: 36415; 80053; 85025; 99284; 96374; 96375; 96372; J1200; J0780; J1170

== ENCOUNTER 2020-11-25 23:27 | Emergency (ER) | payer BC, OTHER ==
[2020-11-25 23:52] VITALS: TEMP 98.4
[2020-11-26] MEDS: METOCLOPRAMIDE 5 MG/ML 2 ML VIAL IVP STA (01:55)
[2020-11-26] MEDS: diphenhydrAMINE 50 MG/ML 1 ML VIAL IVP STA (01:55)
[2020-11-26] MEDS: HYDROmorphone 1 MG/ML 1 ML SYRINGE IVP STA ×2 (01:56→03:20)
[2020-11-26] MEDS: SODIUM CHLORIDE 0.9% 1,000 ML IV STA (02:03)
[2020-11-26 02:25] LABS: Basophils # (A) 0.1 k/uL (0-0.2); Basophils % (A) 1 %; Eosinophils # (A) 0.2 k/uL (0-0.7); Eosinophils % (A) 2 %; HGB 13.8 gm/dL (11.4-16.0); Lymphocytes # (A) 4.4 k/uL (1.0-4.8); Lymphocytes % (A) 40 %; MCH 29.7 pg (25.0-35.0); MCHC 33.6 g/dL (31.0-37.0); MCV 88.6 fL (80.0-100.0); Mean Platelet Volume 7.3; Monocytes # (A) 0.5 k/uL (0-1.0); Monocytes % (A) 4 %; Neutrophils # (A) 5.6 k/uL (1.3-7.7); Neutrophils % (A) 51 %; Platelet Count 249 k/uL (150-450); RBC 4.63 m/uL (3.80-5.40); RDW 12.7 % (11.5-15.5); WBC 10.9 k/uL (3.8-10.6)
[2020-11-26 02:32] LABS: ALT 51 U/L (4-34); AST 42 U/L (14-36); African American GFR (CKD) >90 (>60 ml/min/1.73 sqM); Albumin 4.1 g/dL (3.5-5.0); Alkaline Phosphatase 113 U/L (38-126); Anion Gap 10 mmol/L; Blood Urea Nitrogen 9 mg/dL (7-17); Calcium 9.7 mg/dL (8.4-10.2); Carbon Dioxide 24 mmol/L (22-30); Chloride 103 mmol/L (98-107); Glucose 337 mg/dL (74-99); Lipase 195 U/L (23-300); Non-African American GFR(CKD) >90 (>60 ml/min/1.73 sqM); Sodium 137 mmol/L (137-145); Total Bilirubin 0.4 mg/dL (0.2-1.3); Total Protein 6.6 g/dL (6.3-8.2)
[2020-11-26 02:33] LABS: Appearance,Urine Cloudy (Clear); Bilirubin,Urine Negative (Negative); Blood,Urine Large (Negative); Color,Urine Yellow; Glucose,Urine (UA) 4+ (Negative); Ketones,Urine Negative (Negative); Leukocyte Esterase,Urine Negative (Negative); Nitrite,Urine Negative (Negative); Protein,Urine Negative (Negative); RBC,Urine >182 /hpf (0-5); Specific Gravity,Urine 1.027 (1.001-1.035); Squamous Epithelial Cell,Urine 12 /hpf (0-4); Urobilinogen,Urine <2.0 mg/dL (<2.0); WBC,Urine 17 /hpf (0-5)
--- NOTE | 2020-11-26 02:40 | ED ---
Abdominal Pain HPI - General Chief Complaint: Abdominal Pain Stated Complaint: Abd Pain Time Seen by Provider: 11/26/20 00:13 Source: patient Mode of arrival: ambulatory - History of Present Illness Initial Comments: 45-year-old female patient presents to the emergency department today for evaluation of right flank pain, nausea, vomiting. Patient states symptoms have been going on for quite some time. States that it worsened today. Unable to keep down any food or fluids. States she is scheduled to have surgery to remove a kidney stone on Sunday. States she did take Zofran, Toradol, and Percocet at home, states he did not help. She denies any fever or chills. Does report some hematuria. Patient denies any recent rash, cough, shortness of breath, chest pain, diarrhea, constipation, back pain, numbness, tingling, dizziness, weakness, headache, visual changes, or any other complaints. - Related Data Home Medications Medication Instructions Recorded Confirmed oxyCODONE-APAP 10-325MG [Percocet 1 tab PO Q6H PRN 08/29/17 04/21/20 10-325 mg] PARoxetine HCL [Paxil] 40 mg PO DAILY 03/12/18 04/21/20 Topiramate [Topamax] 100 mg PO BID 03/12/18 04/21/20 PARoxetine [Paxil] 20 mg PO DAILY 06/04/18 04/21/20 Atorvastatin [Lipitor] 40 mg PO DAILY 07/16/19 04/21/20 Insulin Glargine,Hum.rec.anlog 40 unit SQ HS 01/26/20 04/21/20 [Basaglar [place] U-100] lisinopriL [Zestril] 10 mg PO DAILY 01/26/20 04/21/20 Montelukast [Singulair] 10 mg PO DAILY 02/09/20 04/21/20 ARIPiprazole [Abilify] 15 mg PO HS 04/04/20 04/21/20 Insulin Lispro [Admelog Solostar] 6 units SQ AC-TID 04/04/20 04/21/20 Mirtazapine 7.5 mg PO HS 04/04/20 04/21/20 OXcarbazepine [Trileptal] 300 mg PO BID 04/04/20 04/21/20 metFORMIN HCL 1,000 mg PO BID 04/04/20 04/21/20 Loratadine 10 mg PO DAILY 04/21/20 04/21/20 Previous Rx's Medication Instructions Recorded SUMAtriptan succinate [Imitrex] 100 mg PO DAILY PRN tab 08/02/17 Ciprofloxacin HCl [Cipro] 500 mg PO Q12HR 1 Days #6 tab 05/27/20 Clindamycin Gel [Clindamycin 1 applic TOPICAL BID #1 tube 09/09/20 Phosphate 1% Gel] Fluconazole [Diflucan] 150 mg PO ONCE #1 tab 10/15/20 Allergies Allergy/AdvReac Type Severity Reaction Status Date / Time bupropion HCl Allergy Rash/Hives Verified 11/25/20 23:52 [From Wellbutrin] divalproex sodium Allergy Unknown Verified 11/25/20 23:52 [From Depakote] fentanyl Allergy Swelling Verified 11/25/20 23:52 Iodinated Contrast Media Allergy Anaphylaxis Verified 11/25/20 23:52 [Iodinated Contrast Media - IV Dye] orange juice [[place]] Allergy Rash/Hives Verified 11/25/20 23:52 Sulfa (Sulfonamide Allergy Rash/Hives Verified 11/25/20 23:52 Antibiotics) Penicillins AdvReac Nausea & Verified 11/25/20 23:52 Vomiting Review of Systems ROS Statement: Those systems with pertinent positive or pertinent negative responses have been documented in the HPI. ROS Other: All systems not noted in ROS Statement are negative. 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 History of Any Multi-Drug Resistant Organisms: ESBL Date of last positivie culture/infection: 05/14/17 MDRO Source:: ESBL URINE, Past Surgical History: Bladder Surgery, Section, Cholecystectomy, Hysterectomy, Orthopedic Surgery, Tubal Ligation Additional Past Surgical History / Comment(s): R ovarian cystectomy, laparoscopic surgery for L ovary that had attached to the bowel, D&C, numerous lithotripsies, nephroscopies, cystoscopies and stents to ureters-none in place at this time, L robotic pyeloplasty with post op infection around kidney which then required a picc line/later removed (pt states was not MRSA), L rotator cuff repair, L wrist tendon surgery, colonoscopy Past Anesthesia/Blood Transfusion Reactions: Family History of Problems w/ Anesthesia Additional Past Anesthesia/Blood Transfusion Reaction / Comment(s): dad-hard time waking up due to enzyme problems in liver Past Psychological History: ADD/ADHD, Anxiety, Bipolar, Depression, PTSD Smoking Status: Current every day smoker Past Alcohol Use History: None Reported Past Drug Use History: None Reported - Past Family History Brother(s) Family Medical History: Cancer Additional Family Medical History / Comment(s): testicular Father Family Medical History: Coronary Artery Disease (CAD), CVA/TIA, Diabetes Mellitus, Renal Disease Additional Family Medical History / Comment(s): GLAUCOMA,NEUROPATHY HAD TRIPLE CABG, at 56yrs from renal disease. Mother Family Medical History: Hyperlipidemia Additional Family Medical History / Comment(s): DDD, HAD 3 vessel CABG AGE 54. General Exam General appearance: alert, in no apparent distress, other (Physical well- developed, well-nourished adult female patient in no acute distress. Vital signs upon presentation temperature 98.4F, pulse 103, respirations 19, blood pressure 123/81, pulse ox 96% on room air.) Eye exam: Present: normal appearance, PERRL, EOMI. Absent: scleral icterus, conjunctival injection, periorbital swelling ENT exam: Present: normal exam, normal oropharynx, mucous membranes moist Respiratory exam: Present: normal lung sounds bilaterally. Absent: respiratory distress, wheezes, rales, rhonchi, stridor Cardiovascular Exam: Present: regular rate, normal rhythm, normal heart sounds. Absent: systolic murmur, diastolic murmur, rubs, gallop, clicks GI/Abdominal exam: Present: soft, normal bowel sounds. Absent: distended, tenderness, guarding, rebound, rigid Back exam: Present: normal inspection, CVA tenderness (R). Absent: CVA tenderness (L) Neurological exam: Present: alert, oriented X3, CN II-XII intact Psychiatric exam: Present: normal affect, normal mood Skin exam: Present: warm, dry, intact, normal color. Absent: rash Course Vital Signs 11/25/20 23:47 Temperature 98.4 F Pulse Rate 103 H Respiratory 19 Rate Blood Pressure 123/81 O2 Sat by Pulse 96 Oximetry Medical Decision Making - Medical Decision Making 45-year-old female patient presents to the emergency department today for evaluation of right flank pain and vomiting. Does have chronic kidney stones and chronic flank pain. Physical examination did reveal right CVA tenderness. Abdomen soft and nontender. She is afebrile. Labs reviewed and showed mild elevation in white blood cells and blood sugar. She will be given NovoLog. Given IV fluids, pain medication. Upon reevaluation states she does feel s lightly better, nausea is resolved. She'll be given additional dose of pain medicine. Discharged to follow-up with her urologist and primary care physician as planned. Return parameters were discussed in detail. She verbalizes understanding and agrees with this plan. My attending is Dr. Churchill. - Lab Data Result diagrams: 11/26/20 01:46 11/26/20 01:46 Lab Results 11/26/20 11/26/20 11/26/20 Range/Units 01:46 01:46 01:46 WBC 10.9 H (3.8-10.6) k/uL RBC 4.63 (3.80-5.40) m/uL Hgb 13.8 (11.4-16.0) gm/dL Hct 41.0 (34.0-46.0) % MCV 88.6 (80.0-100.0) fL MCH 29.7 (25.0-35.0) pg MCHC 33.6 (31.0-37.0) g/dL RDW 12.7 (11.5-15.5) % Plt Count 249 (150-450) k/uL MPV 7.3 Neutrophils % 51 % Lymphocytes % 40 % Monocytes % 4 % Eosinophils % 2 % Basophils % 1 % Neutrophils # 5.6 (1.3-7.7) k/uL Lymphocytes # 4.4 (1.0-4.8) k/uL Monocytes # 0.5 (0-1.0) k/uL Eosinophils # 0.2 (0-0.7) k/uL Basophils # 0.1 (0-0.2) k/uL Sodium 137 (137-145) mmol/L Potassium 4.0 (3.5-5.1) mmol/L Chloride 103 (98-107) mmol/L Carbon Dioxide 24 (22-30) mmol/L Anion Gap 10 mmol/L BUN 9 (7-17) mg/dL Creatinine 0.59 (0.52-1.04) mg/dL Est GFR (CKD-EPI)AfAm >90 (>60 ml/min/1.73 sqM) Est GFR (CKD-EPI)NonAf >90 (>60 ml/min/1.73 sqM) Glucose 337 H (74-99) mg/dL Calcium 9.7 (8.4-10.2) mg/dL Total Bilirubin 0.4 (0.2-1.3) mg/dL AST 42 H (14-36) U/L ALT 51 H (4-34) U/L Alkaline Phosphatase 113 (38-126) U/L Total Protein 6.6 (6.3-8.2) g/dL Albumin 4.1 (3.5-5.0) g/dL Lipase 195 (23-300) U/L Urine Color Yellow Urine Appearance Cloudy H (Clear) Urine pH 6.0 (5.0-8.0) Ur Specific [place] 1.027 (1.001-1.035) Urine Protein Negative (Negative) Urine Glucose (UA) 4+ H (Negative) Urine Ketones Negative (Negative) Urine Blood Large H (Negative) Urine Nitrite Negative (Negative) Urine Bilirubin Negative (Negative) Urine Urobilinogen <2.0 (<2.0) mg/dL Ur Leukocyte Esterase Negative (Negative) Urine RBC >182 H (0-5) /hpf Urine WBC 17 H (0-5) /hpf Ur Squamous Epith Cells 12 H (0-4) /hpf Disposition Clinical Impression: Right flank pain, Kidney stone Disposition: HOME SELF-CARE Condition: Good Instructions (If sedation given, give patient instructions): Kidney Stones (ED) Additional Instructions: Increase fluids. Follow-up with your physicians as you have planned. Return to the emergency department for new, worsening, or concerning symptoms. Is patient prescribed a controlled substance at d/c from ED?: No Referrals: Elida Basurto MD [Primary Care Provider] - 1-2 days Time of Disposition: 02:40
[2020-11-26] MEDS: INSULIN ASPART (NovoLOG) 100 UNIT/ML VIAL SQ STA (03:21)
[2020-11-26 03:29] LABS: Glucose,Whole Blood 255 mg/dL (75-99)
[2020-11-26 03:32] VITALS: BP 131/74; PULSE 77; RESP 15
== END 2020-11-26 03:32 | disposition home or self-care (01) ==
LOC: EC 23:27
DX: N20.0 Calculus of kidney (principal); E11.9 Type 2 diabetes mellitus without complications; E78.5 Hyperlipidemia, unspecified; I10 Essential (primary) hypertension; F32.9 Major depressive disorder, single episode, unspecified; F17.200 Nicotine dependence, unspecified, uncomplicated; G43.909 Migraine, unspecified, not intractable, without status migrainosus; Z90.49 Acquired absence of other specified parts of digestive tract; Z90.710 Acquired absence of both cervix and uterus; Z79.4 Long term (current) use of insulin
CPT/HCPCS: 36415; 80053; 83690; 85025; 81001; 87086; 99284; 96374; 96375 ×3; 96361; J1200; J2765; J1170

== ENCOUNTER 2020-12-11 00:30 | Emergency (ER) | payer BC, OTHER ==
[2020-12-11 00:46] VITALS: TEMP 97.6
[2020-12-11 01:36] LABS: Appearance,Urine Clear (Clear); Bacteria,Urine Rare /hpf; Bilirubin,Urine Negative (Negative); Blood,Urine Large (Negative); Calcium Oxalate Crystals,Urine Rare /hpf; Color,Urine Yellow; Glucose,Urine (UA) 4+ (Negative); Ketones,Urine Negative (Negative); Leukocyte Esterase,Urine Negative (Negative); Nitrite,Urine Negative (Negative); Protein,Urine Negative (Negative); RBC,Urine >182 /hpf (0-5); Squamous Epithelial Cell,Urine 2 /hpf (0-4); Urobilinogen,Urine <2.0 mg/dL (<2.0); WBC,Urine 83 /hpf (0-5)
[2020-12-11 01:39] LABS: Basophils # (A) 0.1 k/uL (0-0.2); Basophils % (A) 1 %; Eosinophils # (A) 0.3 k/uL (0-0.7); Eosinophils % (A) 2 %; HCT 42.9 % (34.0-46.0); HGB 14.2 gm/dL (11.4-16.0); Lymphocytes # (A) 4.8 k/uL (1.0-4.8); Lymphocytes % (A) 37 %; MCH 29.6 pg (25.0-35.0); MCHC 33.2 g/dL (31.0-37.0); MCV 89.2 fL (80.0-100.0); Mean Platelet Volume 7.2; Monocytes # (A) 0.6 k/uL (0-1.0); Monocytes % (A) 4 %; Neutrophils % (A) 54 %; Platelet Count 271 k/uL (150-450); RBC 4.81 m/uL (3.80-5.40); RDW 12.5 % (11.5-15.5)
[2020-12-11 01:58] LABS: ALT 30 U/L (4-34); AST 25 U/L (14-36); African American GFR (CKD) >90 (>60 ml/min/1.73 sqM); Albumin 4.1 g/dL (3.5-5.0); Alkaline Phosphatase 117 U/L (38-126); Amylase 58 U/L (30-110); Anion Gap 12 mmol/L; Blood Urea Nitrogen 10 mg/dL (7-17); Calcium 9.5 mg/dL (8.4-10.2); Carbon Dioxide 20 mmol/L (22-30); Chloride 105 mmol/L (98-107); Glucose 322 mg/dL (74-99); Lipase 305 U/L (23-300); Non-African American GFR(CKD) >90 (>60 ml/min/1.73 sqM); Potassium 3.9 mmol/L (3.5-5.1); Sodium 137 mmol/L (137-145); Total Bilirubin 0.5 mg/dL (0.2-1.3); Total Protein 6.7 g/dL (6.3-8.2)
[2020-12-11] MEDS ORDERED: MORPHINE SULFATE 4 MG/ML SYRINGE IV STA ×2 (01:59→02:50)
--- NOTE | 2020-12-11 02:17 | XR ---
EXAM: XR Abdomen, 1 View CLINICAL HISTORY: ITS.REASON XR Reason: abdominal pain TECHNIQUE: Frontal supine view of the abdomen/pelvis. COMPARISON: No relevant prior studies available. FINDINGS: Gastrointestinal tract: There is a large amount of stool in the right colon measuring up to 5.5 cm suggesting mild constipation. The remaining bowel loops appear nondilated. Organs: Cholecystectomy clips in the right upper quadrant. Bones/joints: Unremarkable. IMPRESSION: Possible mild constipation. Previous cholecystectomy.
--- NOTE | 2020-12-11 03:06 | ED ---
Abdominal Pain HPI - General Chief Complaint: Abdominal Pain Stated Complaint: Abd Pain Time Seen by Provider: 12/11/20 01:00 Source: patient Mode of arrival: ambulatory Limitations: no limitations - Related Data Home Medications Medication Instructions Recorded Confirmed oxyCODONE-APAP 10-325MG [Percocet 1 tab PO Q6H PRN 08/29/17 04/21/20 10-325 mg] PARoxetine HCL [Paxil] 40 mg PO DAILY 03/12/18 04/21/20 Topiramate [Topamax] 100 mg PO BID 03/12/18 04/21/20 PARoxetine [Paxil] 20 mg PO DAILY 06/04/18 04/21/20 Atorvastatin [Lipitor] 40 mg PO DAILY 07/16/19 04/21/20 Insulin Glargine,Hum.rec.anlog 40 unit SQ HS 01/26/20 04/21/20 [Basaglar Kwikpen U-100] lisinopriL [Zestril] 10 mg PO DAILY 01/26/20 04/21/20 Montelukast [Singulair] 10 mg PO DAILY 02/09/20 04/21/20 ARIPiprazole [Abilify] 15 mg PO HS 04/04/20 04/21/20 Insulin Lispro [Admelog Solostar] 6 units SQ AC-TID 04/04/20 04/21/20 Mirtazapine 7.5 mg PO HS 04/04/20 04/21/20 OXcarbazepine [Trileptal] 300 mg PO BID 04/04/20 04/21/20 metFORMIN HCL 1,000 mg PO BID 04/04/20 04/21/20 Loratadine 10 mg PO DAILY 04/21/20 04/21/20 Previous Rx's Medication Instructions Recorded SUMAtriptan succinate [Imitrex] 100 mg PO DAILY PRN tab 08/02/17 Ciprofloxacin HCl [Cipro] 500 mg PO Q12HR 1 Days #6 tab 05/27/20 Clindamycin Gel [Clindamycin 1 applic TOPICAL BID #1 tube 09/09/20 Phosphate 1% Gel] Fluconazole [Diflucan] 150 mg PO ONCE #1 tab 10/15/20 Ciprofloxacin HCl [Cipro] 500 mg PO Q12HR #14 tablet 12/11/20 Allergies Allergy/AdvReac Type Severity Reaction Status Date / Time bupropion HCl Allergy Rash/Hives Verified 12/11/20 00:46 [From Wellbutrin] divalproex sodium Allergy Unknown Verified 12/11/20 00:46 [From Depakote] fentanyl Allergy Swelling Verified 12/11/20 00:46 Iodinated Contrast Media Allergy Anaphylaxis Verified 12/11/20 00:46 [Iodinated Contrast Media - IV Dye] orange juice [[place]] Allergy Rash/Hives Verified 12/11/20 00:46 Sulfa (Sulfonamide Allergy Rash/Hives Verified 12/11/20 00:46 Antibiotics) Penicillins AdvReac Nausea & Verified 12/11/20 00:46 Vomiting Review of Systems ROS Statement: Those systems with pertinent positive or pertinent negative responses have been documented in the HPI. ROS Other: All systems not noted in ROS Statement are negative. 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 History of Any Multi-Drug Resistant Organisms: ESBL Date of last positivie culture/infection: 05/14/17 MDRO Source:: ESBL URINE, Past Surgical History: Bladder Surgery, Section, Cholecystectomy, Hysterectomy, Orthopedic Surgery, Tubal Ligation Additional Past Surgical History / Comment(s): R ovarian cystectomy, laparos copic surgery for L ovary that had attached to the bowel, D&C, numerous lithotripsies, nephroscopies, cystoscopies and stents to ureters-none in place at this time, L robotic pyeloplasty with post op infection around kidney which then required a picc line/later removed (pt states was not MRSA), L rotator cuff repair, L wrist tendon surgery, colonoscopy Past Anesthesia/Blood Transfusion Reactions: Family History of Problems w/ Anesthesia Additional Past Anesthesia/Blood Transfusion Reaction / Comment(s): dad-hard time waking up due to enzyme problems in liver Past Psychological History: ADD/ADHD, Anxiety, Bipolar, Depression, PTSD Smoking Status: Current every day smoker Past Alcohol Use History: None Reported Past Drug Use History: None Reported - Past Family History Brother(s) Family Medical History: Cancer Additional Family Medical History / Comment(s): testicular Father Family Medical History: Coronary Artery Disease (CAD), CVA/TIA, Diabetes Mellitus, Renal Disease Additional Family Medical History / Comment(s): GLAUCOMA,NEUROPATHY HAD TRIPLE CABG, at 56yrs from renal disease. Mother Family Medical History: Hyperlipidemia Additional Family Medical History / Comment(s): DDD, HAD 3 vessel CABG AGE 54. General Exam Limitations: no limitations Course Vital Signs 12/11/20 00:44 Temperature 97.6 F Pulse Rate 87 Respiratory 18 Rate Blood Pressure 107/80 O2 Sat by Pulse 98 Oximetry Medical Decision Making - Lab Data Result diagrams: 12/11/20 01:07 12/11/20 01:07 Lab Results 12/11/20 12/11/20 12/11/20 Range/Units 01:07 01:07 01:07 WBC 13.0 H (3.8-10.6) k/uL RBC 4.81 (3.80-5.40) m/uL Hgb 14.2 (11.4-16.0) gm/dL Hct 42.9 (34.0-46.0) % MCV 89.2 (80.0-100.0) fL MCH 29.6 (25.0-35.0) pg MCHC 33.2 (31.0-37.0) g/dL RDW 12.5 (11.5-15.5) % Plt Count 271 (150-450) k/uL MPV 7.2 Neutrophils % 54 % Lymphocytes % 37 % Monocytes % 4 % Eosinophils % 2 % Basophils % 1 % Neutrophils # 7.0 (1.3-7.7) k/uL Lymphocytes # 4.8 (1.0-4.8) k/uL Monocytes # 0.6 (0-1.0) k/uL Eosinophils # 0.3 (0-0.7) k/uL Basophils # 0.1 (0-0.2) k/uL Sodium 137 (137-145) mmol/L Potassium 3.9 (3.5-5.1) mmol/L Chloride 105 (98-107) mmol/L Carbon Dioxide 20 L (22-30) mmol/L Anion Gap 12 mmol/L BUN 10 (7-17) mg/dL Creatinine 0.57 (0.52-1.04) mg/dL Est GFR (CKD-EPI)AfAm >90 (>60 ml/min/1.73 sqM) Est GFR (CKD-EPI)NonAf >90 (>60 ml/min/1.73 sqM) Glucose 322 H (74-99) mg/dL Calcium 9.5 (8.4-10.2) mg/dL Total Bilirubin 0.5 (0.2-1.3) mg/dL AST 25 (14-36) U/L ALT 30 (4-34) U/L Alkaline Phosphatase 117 (38-126) U/L Total Protein 6.7 (6.3-8.2) g/dL Albumin 4.1 (3.5-5.0) g/dL Amylase 58 (30-110) U/L Lipase 305 H (23-300) U/L Urine Color Yellow Urine Appearance Clear (Clear) Urine pH 6.0 (5.0-8.0) Ur Specific [place] 1.010 (1.001-1.035) Urine Protein Negative (Negative) Urine Glucose (UA) 4+ H (Negative) Urine Ketones Negative (Negative) Urine Blood Large H (Negative) Urine Nitrite Negative (Negative) Urine Bilirubin Negative (Negative) Urine Urobilinogen <2.0 (<2.0) mg/dL Ur Leukocyte Esterase Negative (Negative) Urine RBC >182 H (0-5) /hpf Urine WBC 83 H (0-5) /hpf Ur Squamous Epith Cells 2 (0-4) /hpf Calcium Oxalate Crystal Rare H (None) /hpf Urine Bacteria Rare H (None) /hpf Disposition Clinical Impression: Right flank pain, Hyperglycemia Disposition: HOME SELF-CARE Condition: Good Instructions (If sedation given, give patient instructions): Flank Pain (ED), Diabetic Hyperglycemia (ED) Prescriptions: Ciprofloxacin HCl [Cipro] 500 mg PO Q12HR #14 tablet Is patient prescribed a controlled substance at d/c from ED?: No Referrals: Elida Basurto MD [Primary Care Provider] - 1-2 days
[2020-12-11 03:27] VITALS: BP 114/68; PULSE 70; RESP 16
== END 2020-12-11 03:27 | disposition home or self-care (01) ==
LOC: EC 00:30
DX: E11.65 Type 2 diabetes mellitus with hyperglycemia (principal); K21.9 Gastro-esophageal reflux disease without esophagitis; E78.5 Hyperlipidemia, unspecified; I10 Essential (primary) hypertension; F32.9 Major depressive disorder, single episode, unspecified; F41.9 Anxiety disorder, unspecified; F17.200 Nicotine dependence, unspecified, uncomplicated; Z90.49 Acquired absence of other specified parts of digestive tract; Z90.710 Acquired absence of both cervix and uterus; Z98.51 Tubal ligation status; Z79.84 Long term (current) use of oral hypoglycemic drugs
CPT/HCPCS: 36415; 80053; 82150; 83690; 85025; 81001; 74018; 99284; 96374; 96376; J2270

== ENCOUNTER 2020-12-26 18:07 | Emergency (ER) | payer BC, OTHER ==
[2020-12-26 18:13] VITALS: TEMP 98.5
[2020-12-26] MEDS ORDERED: MORPHINE SULFATE 4 MG/ML SYRINGE IM STA (18:50)
--- NOTE | 2020-12-26 18:56 | ED ---
General Adult HPI - General Chief complaint: ENT Stated complaint: l ear pain Time Seen by Provider: 12/26/20 18:40 Source: patient, RN notes reviewed, old records reviewed Mode of arrival: ambulatory Limitations: no limitations - History of Present Illness Initial comments: 45 yo female with left ear pain which is been present for the past 6 days. She was seen by a provider at the onset of her symptoms and prescribed azithromycin, Flonase, Claritin. She states the pain has continued in her left ear. She denies runny nose, denies chest pain or dyspnea. States the pain is a sharp pain that comes and goes. She denies rash. Denies pain with movement of the jaw. Denies dental pain. - Related Data Home Medications Medication Instructions Recorded Confirmed oxyCODONE-APAP 10-325MG [Percocet 1 tab PO Q6H PRN 08/29/17 04/21/20 10-325 mg] PARoxetine HCL [Paxil] 40 mg PO DAILY 03/12/18 04/21/20 Topiramate [Topamax] 100 mg PO BID 03/12/18 04/21/20 PARoxetine [Paxil] 20 mg PO DAILY 06/04/18 04/21/20 Atorvastatin [Lipitor] 40 mg PO DAILY 07/16/19 04/21/20 Insulin Glargine,Hum.rec.anlog 40 unit SQ HS 01/26/20 04/21/20 [Basaglar Kwikpen U-100] lisinopriL [Zestril] 10 mg PO DAILY 01/26/20 04/21/20 Montelukast [Singulair] 10 mg PO DAILY 02/09/20 04/21/20 ARIPiprazole [Abilify] 15 mg PO HS 04/04/20 04/21/20 Insulin Lispro [Admelog Solostar] 6 units SQ AC-TID 04/04/20 04/21/20 Mirtazapine 7.5 mg PO HS 04/04/20 04/21/20 OXcarbazepine [Trileptal] 300 mg PO BID 04/04/20 04/21/20 metFORMIN HCL 1,000 mg PO BID 04/04/20 04/21/20 Loratadine 10 mg PO DAILY 04/21/20 04/21/20 Previous Rx's Medication Instructions Recorded SUMAtriptan succinate [Imitrex] 100 mg PO DAILY PRN tab 08/02/17 Ciprofloxacin HCl [Cipro] 500 mg PO Q12HR 1 Days #6 tab 05/27/20 Clindamycin Gel [Clindamycin 1 applic TOPICAL BID #1 tube 09/09/20 Phosphate 1% Gel] Fluconazole [Diflucan] 150 mg PO ONCE #1 tab 10/15/20 Ciprofloxacin HCl [Cipro] 500 mg PO Q12HR #14 tablet 12/11/20 Allergies Allergy/AdvReac Type Severity Reaction Status Date / Time bupropion HCl Allergy Rash/Hives Verified 12/26/20 18:13 [From Wellbutrin] divalproex sodium Allergy Unknown Verified 12/26/20 18:13 [From Depakote] fentanyl Allergy Swelling Verified 12/26/20 18:13 Iodinated Contrast Media Allergy Anaphylaxis Verified 12/26/20 18:13 [Iodinated Contrast Media - IV Dye] orange juice [[place]] Allergy Rash/Hives Verified 12/26/20 18:13 Sulfa (Sulfonamide Allergy Rash/Hives Verified 12/26/20 18:13 Antibiotics) Penicillins AdvReac Nausea & Verified 12/26/20 18:13 Vomiting Review of Systems ROS Statement: Those systems with pertinent positive or pertinent negative responses have been documented in the HPI. ROS Other: All systems not noted in ROS Statement are negative. 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 History of Any Multi-Drug Resistant Organisms: ESBL Date of last positivie culture/infection: 05/14/17 MDRO Source:: ESBL URINE, Past Surgical History: Bladder Surgery, Section, Cholecystectomy, Hysterectomy, Orthopedic Surgery, Tubal Ligation Additional Past Surgical History / Comment(s): R ovarian cystectomy, laparoscopic surgery for L ovary that had attached to the bowel, D&C, numerous lithotripsies, nephroscopies, cystoscopies and stents to ureters-none in place at this time, L robotic pyeloplasty with post op infection around kidney which then required a picc line/later removed (pt states was not MRSA), L rotator cuff repair, L wrist tendon surgery, colonoscopy Past Anesthesia/Blood Transfusion Reactions: Family History of Problems w/ Anesthesia Additional Past Anesthesia/Blood Transfusion Reaction / Comment(s): dad-hard time waking up due to enzyme problems in liver Past Psychological History: ADD/ADHD, Anxiety, Bipolar, Depression, PTSD Smoking Status: Current every day smoker Past Alcohol Use History: None Reported Past Drug Use History: None Reported - Past Family History Brother(s) Family Medical History: Cancer Additional Family Medical History / Comment(s): testicular Father Family Medical History: Coronary Artery Disease (CAD), CVA/TIA, Diabetes Mellitus, Renal Disease Additional Family Medical History / Comment(s): GLAUCOMA,NEUROPATHY HAD TRIPLE CABG, at 56yrs from renal disease. Mother Family Medical History: Hyperlipidemia Additional Family Medical History / Comment(s): DDD, HAD 3 vessel CABG AGE 54. General Exam Limitations: no limitations General appearance: alert, in no apparent distress Head exam: Present: atraumatic, normocephalic Eye exam: Present: normal appearance, PERRL ENT exam: Present: TM's normal bilaterally (Normal cone of light bilaterally, mildly erythematous bilateral, no bulging.), other (No rash on the year itself or erythema in the canal. No TMJ symptoms. No mastoid tenderness or erythema.) Neck exam: Present: normal inspection, lymphadenopathy (Minimal lymphadenopathy bilaterally.). Absent: tenderness, meningismus Respiratory exam: Present: normal lung sounds bilaterally. Absent: respiratory distress, wheezes Cardiovascular Exam: Present: regular rate, normal rhythm GI/Abdominal exam: Present: soft. Absent: distended, tenderness Extremities exam: Present: normal inspection, normal capillary refill. Absent: pedal edema Neurological exam: Present: alert, oriented X3, CN II-XII intact. Absent: motor sensory deficit Course Vital Signs 12/26/20 18:10 Temperature 98.5 F Pulse Rate 115 H Respiratory 20 Rate Blood Pressure 136/85 O2 Sat by Pulse 99 Oximetry - Reevaluation(s) Reevaluation #1: 12/26/20 18:54 Patient not driving. Medical Decision Making - Medical Decision Making 45-year-old female with left ear pain, recently treated for otitis media. The tympanic membranes are mildly erythematous bilaterally with no bulging, there is no rash on exam. Patient overall well-appearing. She is given return parameters and ENT follow-up. She will continue Flonase and Claritin at home. Return parameters discussed including worsening pain, fever. She will also follow up with the primary care physician. Disposition Clinical Impression: Earache on left Disposition: HOME SELF-CARE Condition: Fair Instructions (If sedation given, give patient instructions): Earache (ED) Is patient prescribed a controlled substance at d/c from ED?: No Referrals: Elida Basurto MD [Primary Care Provider] - 1-2 days Marquez Lopez MD [STAFF PHYSICIAN] - 1-2 days Time of Disposition: 18:56
[2020-12-26 19:04] VITALS: BP 139/80; PULSE 99; RESP 18
== END 2020-12-26 19:39 | disposition home or self-care (01) ==
LOC: EC 18:07
DX: H92.02 Otalgia, left ear (principal); E11.9 Type 2 diabetes mellitus without complications; E78.5 Hyperlipidemia, unspecified; F17.200 Nicotine dependence, unspecified, uncomplicated; F41.9 Anxiety disorder, unspecified; I10 Essential (primary) hypertension; K21.9 Gastro-esophageal reflux disease without esophagitis; Z90.710 Acquired absence of both cervix and uterus; Z90.49 Acquired absence of other specified parts of digestive tract; Z98.51 Tubal ligation status; F32.9 Major depressive disorder, single episode, unspecified; Z79.4 Long term (current) use of insulin; Z87.442 Personal history of urinary calculi
CPT/HCPCS: 99283; 96372; J2270; 99284

== ENCOUNTER 2020-12-28 23:22 | Emergency (ER) | payer BC, OTHER ==
[2020-12-28 23:26] VITALS: TEMP 97.7
[2020-12-28] MEDS ORDERED: SODIUM CHLORIDE 0.9% 500 ML 500 ML IV STA (23:43)
[2020-12-28] MEDS ORDERED: HYDROmorphone 1 MG/ML 1 ML SYRINGE IVP STA (23:43)
[2020-12-28] MEDS ORDERED: PROCHLORPERAZINE INJ 10 MG/2 ML VIAL IVP STA (23:43)
[2020-12-28] MEDS ORDERED: SODIUM CHLORIDE 0.9% 1,000 ML IV STA ×2 (23:43)
--- NOTE | 2020-12-28 23:58 | ED ---
Female Urogenital HPI - General Chief complaint: Urogenital Stated complaint: Abd Pain Time Seen by Provider: 12/28/20 23:28 Source: patient, RN notes reviewed, old records reviewed Mode of arrival: ambulatory Limitations: no limitations - History of Present Illness Initial comments: This is a 45-year-old female to the ER for evaluation patient presents today for evaluation regards to flank pain left-sided flank pain kidney stone pain. Patient was facility for similar issues, patient states she was at her doctor's office earlier got a shot but has had persistent nausea vomiting unable take oral medications at home. Patient presents today and severe pain mild symptoms of withdrawal MD Complaint: other (Flank pain) -: year(s) Location: suprapubic Radiation: R flank Severity: severe Severity scale (1-10): 10 Quality: sharp Consistency: constant Improves with: none Worsens with: none Patient : No Associated Symptoms: denies other symptoms - Related Data Sexually active: No Home Medications Medication Instructions Recorded Confirmed oxyCODONE-APAP 10-325MG [Percocet 1 tab PO Q6H PRN 08/29/17 04/21/20 10-325 mg] PARoxetine HCL [Paxil] 40 mg PO DAILY 03/12/18 04/21/20 Topiramate [Topamax] 100 mg PO BID 03/12/18 04/21/20 PARoxetine [Paxil] 20 mg PO DAILY 06/04/18 04/21/20 Atorvastatin [Lipitor] 40 mg PO DAILY 07/16/19 04/21/20 Insulin Glargine,Hum.rec.anlog 40 unit SQ HS 01/26/20 04/21/20 [Basaglar Kwikpen U-100] lisinopriL [Zestril] 10 mg PO DAILY 01/26/20 04/21/20 Montelukast [Singulair] 10 mg PO DAILY 02/09/20 04/21/20 ARIPiprazole [Abilify] 15 mg PO HS 04/04/20 04/21/20 Insulin Lispro [Admelog Solostar] 6 units SQ AC-TID 04/04/20 04/21/20 Mirtazapine 7.5 mg PO HS 04/04/20 04/21/20 OXcarbazepine [Trileptal] 300 mg PO BID 04/04/20 04/21/20 metFORMIN HCL 1,000 mg PO BID 04/04/20 04/21/20 Loratadine 10 mg PO DAILY 04/21/20 04/21/20 Previous Rx's Medication Instructions Recorded SUMAtriptan succinate [Imitrex] 100 mg PO DAILY PRN tab 08/02/17 Ciprofloxacin HCl [Cipro] 500 mg PO Q12HR 1 Days #6 tab 05/27/20 Clindamycin Gel [Clindamycin 1 applic TOPICAL BID #1 tube 09/09/20 Phosphate 1% Gel] Fluconazole [Diflucan] 150 mg PO ONCE #1 tab 10/15/20 Ciprofloxacin HCl [Cipro] 500 mg PO Q12HR #14 tablet 12/11/20 Allergies Allergy/AdvReac Type Severity Reaction Status Date / Time bupropion HCl Allergy Rash/Hives Verified 12/26/20 18:13 [From Wellbutrin] divalproex sodium Allergy Unknown Verified 12/26/20 18:13 [From Depakote] fentanyl Allergy Swelling Verified 12/26/20 18:13 Iodinated Contrast Media Allergy Anaphylaxis Verified 12/26/20 18:13 [Iodinated Contrast Media - IV Dye] orange juice [[place]] Allergy Rash/Hives Verified 12/26/20 18:13 Sulfa (Sulfonamide Allergy Rash/Hives Verified 12/26/20 18:13 Antibiotics) Penicillins AdvReac Nausea & Verified 12/26/20 18:13 Vomiting Review of Systems ROS Statement: Those systems with pertinent positive or pertinent negative responses have been documented in the HPI. ROS Other: All systems not noted in ROS Statement are negative. 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 History of Any Multi-Drug Resistant Organisms: ESBL Date of last positivie culture/infection: 05/14/17 MDRO Source:: ESBL URINE, Past Surgical History: Bladder Surgery, Section, Cholecystectomy, Hysterectomy, Orthopedic Surgery, Tubal Ligation Additional Past Surgical History / Comment(s): R ovarian cystectomy, laparoscopic surgery for L ovary that had attached to the bowel, D&C, numerous lithotripsies, nephroscopies, cystoscopies and stents to ureters-none in place at this time, L robotic pyeloplasty with post op infection around kidney which then required a picc line/later removed (pt states was not MRSA), L rotator cuff repair, L wrist tendon surgery, colonoscopy Past Anesthesia/Blood Transfusion Reactions: Family History of Problems w/ Anesthesia Additional Past Anesthesia/Blood Transfusion Reaction / Comment(s): dad-hard time waking up due to enzyme problems in liver Past Psychological History: ADD/ADHD, Anxiety, Bipolar, Depression, PTSD Smoking Status: Current every day smoker Past Alcohol Use History: None Reported Past Drug Use History: None Reported - Past Family History Brother(s) Family Medical History: Cancer Additional Family Medical History / Comment(s): testicular Father Family Medical History: Coronary Artery Disease (CAD), CVA/TIA, Diabetes Mellitus, Renal Disease Additional Family Medical History / Comment(s): GLAUCOMA,NEUROPATHY HAD TRIPLE CABG, at 56yrs from renal disease. Mother Family Medical History: Hyperlipidemia Additional Family Medical History / Comment(s): DDD, HAD 3 vessel CABG AGE 54. General Exam Limitations: no limitations General appearance: alert, in no apparent distress, anxious Head exam: Present: atraumatic, normocephalic, normal inspection Eye exam: Present: normal appearance, PERRL, EOMI. Absent: scleral icterus, conjunctival injection, periorbital swelling ENT exam: Present: normal exam, mucous membranes moist Neck exam: Present: normal inspection. Absent: tenderness, meningismus, lympha denopathy Respiratory exam: Present: normal lung sounds bilaterally. Absent: respiratory distress, wheezes, rales, rhonchi, stridor Cardiovascular Exam: Present: normal rhythm, tachycardia, normal heart sounds. Absent: systolic murmur, diastolic murmur, rubs, gallop, clicks GI/Abdominal exam: Present: soft, normal bowel sounds. Absent: distended, tenderness, guarding, rebound, rigid Extremities exam: Present: normal inspection, full ROM, normal capillary refill. Absent: tenderness, pedal edema, joint swelling, calf tenderness Back exam: Present: normal inspection Neurological exam: Present: alert, oriented X3, CN II-XII intact Psychiatric exam: Present: normal affect, normal mood Skin exam: Present: warm, dry, intact, normal color. Absent: rash Course Vital Signs 12/28/20 12/28/20 12/29/20 23:23 23:35 01:57 Temperature 97.7 F Pulse Rate 113 H 107 H 111 H Respiratory 16 18 18 Rate Blood Pressure 126/76 120/90 117/88 O2 Sat by Pulse 99 98 94 L Oximetry 12/29/20 12/29/20 12/29/20 02:15 02:29 04:39 Temperature Pulse Rate 98 100 Respiratory 10 L 16 18 Rate Blood Pressure 112/66 108/76 O2 Sat by Pulse 96 95 Oximetry 12/29/20 06:15 Temperature Pulse Rate 100 Respiratory 18 Rate Blood Pressure 105/72 O2 Sat by Pulse 97 Oximetry - Reevaluation(s) Reevaluation #1: Medical records reviewed Patient symptoms are improved significantly here in the ER Patient in no acute distress Patient informed of results and questions answered Patient feels good for discharge home Medical Decision Making - Medical Decision Making 45 female DF for evaluation well-known for kidney stone kidney stone pain flank pain, no colic. Patient has pain control here in the urine can be discharged home - Lab Data Result diagrams: 12/29/20 00:34 12/29/20 00:34 Lab Results 12/29/20 12/29/20 12/29/20 Range/Units 00:34 00:34 00:34 WBC 12.8 H (3.8-10.6) k/uL RBC 4.88 (3.80-5.40) m/uL Hgb 14.6 (11.4-16.0) gm/dL Hct 41.9 (34.0-46.0) % MCV 86.0 (80.0-100.0) fL MCH 29.9 (25.0-35.0) pg MCHC 34.8 (31.0-37.0) g/dL RDW 12.2 (11.5-15.5) % Plt Count 293 (150-450) k/uL MPV 7.4 Neutrophils % 50 % Lymphocytes % 42 % Monocytes % 4 % Eosinophils % 2 % Basophils % 1 % Neutrophils # 6.4 (1.3-7.7) k/uL Lymphocytes # 5.3 H (1.0-4.8) k/uL Monocytes # 0.5 (0-1.0) k/uL Eosinophils # 0.3 (0-0.7) k/uL Basophils # 0.1 (0-0.2) k/uL Manual Slide Review Performed Large Platelets Present Sodium 137 (137-145) mmol/L Potassium 3.6 (3.5-5.1) mmol/L Chloride 104 (98-107) mmol/L Carbon Dioxide 22 (22-30) mmol/L Anion Gap 11 mmol/L BUN 10 (7-17) mg/dL Creatinine 0.72 (0.52-1.04) mg/dL Est GFR (CKD-EPI)AfAm >90 (>60 ml/min/1.73 sqM) Est GFR (CKD-EPI)NonAf >90 (>60 ml/min/1.73 sqM) Glucose 199 H (74-99) mg/dL Calcium 10.0 (8.4-10.2) mg/dL Total Bilirubin 0.6 (0.2-1.3) mg/dL AST 48 H (14-36) U/L ALT 40 H (4-34) U/L Alkaline Phosphatase 117 (38-126) U/L Total Protein 6.7 (6.3-8.2) g/dL Albumin 4.3 (3.5-5.0) g/dL Amylase 47 (30-110) U/L Lipase 146 (23-300) U/L Urine Color Yellow Urine Appearance Cloudy H (Clear) Urine pH 7.0 (5.0-8.0) Ur Specific [place] 1.016 (1.001-1.035) Urine Protein Trace H (Negative) Urine Glucose (UA) 3+ H (Negative) Urine Ketones Negative (Negative) Urine Blood Large H (Negative) Urine Nitrite Negative (Negative) Urine Bilirubin Negative (Negative) Urine Urobilinogen 4.0 (<2.0) mg/dL Ur Leukocyte Esterase Negative (Negative) Urine RBC >182 H (0-5) /hpf Urine WBC 4 (0-5) /hpf Ur Squamous Epith Cells 2 (0-4) /hpf Calcium Oxalate Crystal Occasional H (None) /hpf Amorphous Sediment Occasional H (None) /hpf - Radiology Data Radiology results: report reviewed (X-ray KUB is negative for acute disease), image reviewed Disposition Clinical Impression: Failure of outpatient treatment, Intractable pain Disposition: HOME SELF-CARE Condition: Good Instructions (If sedation given, give patient instructions): Flank Pain (ED) Is patient prescribed a controlled substance at d/c from ED?: No Referrals: Elida Basurto MD [Primary Care Provider] - 1-2 days
[2020-12-29 00:46] LABS: Basophils # (A) 0.1 k/uL (0-0.2); Basophils % (A) 1 %; Eosinophils # (A) 0.3 k/uL (0-0.7); Eosinophils % (A) 2 %; HCT 41.9 % (34.0-46.0); HGB 14.6 gm/dL (11.4-16.0); Lymphocytes # (A) 5.3 k/uL (1.0-4.8); Lymphocytes % (A) 42 %; MCH 29.9 pg (25.0-35.0); MCHC 34.8 g/dL (31.0-37.0); Mean Platelet Volume 7.4; Monocytes # (A) 0.5 k/uL (0-1.0); Monocytes % (A) 4 %; Neutrophils # (A) 6.4 k/uL (1.3-7.7); Neutrophils % (A) 50 %; Platelet Count 293 k/uL (150-450); RBC 4.88 m/uL (3.80-5.40); RDW 12.2 % (11.5-15.5); WBC 12.8 k/uL (3.8-10.6)
--- NOTE | 2020-12-29 01:01 | XR ---
EXAMINATION TYPE: XR KUB DATE OF EXAM: 12/29/2020 COMPARISON: 12/11/2020 HISTORY: Abdominal pain TECHNIQUE: 2 views upright FINDINGS: There is no sign of intestinal obstruction or pneumoperitoneum. Fecal pattern is normal. Th ere are clips from cholecystectomy. There is no evidence of a mass. There are no calcifications over the kidneys. IMPRESSION: Nonacute abdomen. No adverse change.
[2020-12-29 01:10] LABS: ALT 40 U/L (4-34); AST 48 U/L (14-36); African American GFR (CKD) >90 (>60 ml/min/1.73 sqM); Albumin 4.3 g/dL (3.5-5.0); Alkaline Phosphatase 117 U/L (38-126); Amylase 47 U/L (30-110); Anion Gap 11 mmol/L; Blood Urea Nitrogen 10 mg/dL (7-17); Carbon Dioxide 22 mmol/L (22-30); Chloride 104 mmol/L (98-107); Glucose 199 mg/dL (74-99); Lipase 146 U/L (23-300); Non-African American GFR(CKD) >90 (>60 ml/min/1.73 sqM); Potassium 3.6 mmol/L (3.5-5.1); Sodium 137 mmol/L (137-145); Total Bilirubin 0.6 mg/dL (0.2-1.3); Total Protein 6.7 g/dL (6.3-8.2)
[2020-12-29] MEDS ORDERED: HYDROmorphone 1 MG/ML 1 ML SYRINGE IVP STA (01:29)
[2020-12-29] MEDS ORDERED: LORazepam 2 MG/ML INJ IV STA (01:29)
[2020-12-29] MEDS ORDERED: diphenhydrAMINE 50 MG/ML 1 ML VIAL IVP STA (01:29)
[2020-12-29 01:48] LABS: Amorphous Sediment,Urine Occasional /hpf; Appearance,Urine Cloudy (Clear); Bilirubin,Urine Negative (Negative); Blood,Urine Large (Negative); Calcium Oxalate Crystals,Urine Occasional /hpf; Color,Urine Yellow; Glucose,Urine (UA) 3+ (Negative); Ketones,Urine Negative (Negative); Leukocyte Esterase,Urine Negative (Negative); Nitrite,Urine Negative (Negative); Protein,Urine Trace (Negative); RBC,Urine >182 /hpf (0-5); Specific Gravity,Urine 1.016 (1.001-1.035); Squamous Epithelial Cell,Urine 2 /hpf (0-4); WBC,Urine 4 /hpf (0-5)
[2020-12-29] MEDS ORDERED: NALOXONE 0.4 MG/ML 1 ML VIAL IVP STA (02:18)
[2020-12-29 02:28] LABS: Large Platelets Present
[2020-12-29 04:39] VITALS: PULSE 100; RESP 18
[2020-12-29 06:20] VITALS: BP 105/72
== END 2020-12-29 07:00 | disposition home or self-care (01) ==
LOC: EC 23:22
DX: R10.30 Lower abdominal pain, unspecified (principal); E11.9 Type 2 diabetes mellitus without complications; E78.5 Hyperlipidemia, unspecified; F17.200 Nicotine dependence, unspecified, uncomplicated; I10 Essential (primary) hypertension; K21.9 Gastro-esophageal reflux disease without esophagitis; F41.9 Anxiety disorder, unspecified; F31.9 Bipolar disorder, unspecified; Z87.442 Personal history of urinary calculi; Z79.4 Long term (current) use of insulin; Z91.19 Patient's noncompliance with other medical treatment and regimen
CPT/HCPCS: 36415; 80053; 82150; 83690; 85025; 81001; 74018; 99284; 96374; 96375 ×4; 96361 ×6; 96376; J2060; J1200; J0780; J2310; J1170

== ENCOUNTER → 2021-02-03 | Outpatient (CLI) | payer BC, OTHER ==
--- NOTE | 2021-02-07 09:59 | MM ---
Reason for exam: screening (asymptomatic). Last mammogram was performed 2 years and 10 months ago. History: Patient is postmenopausal and had first child at age 32. Family history of breast cancer in paternal aunt. Took hormonal contraceptives for 10 years. Physical Findings: A clinical breast exam by your physician is recommended on an annual basis and results should be correlated with mammographic findings. MG 3D Screening Mammo W/Cad Bilateral CC and MLO view(s) were taken. Prior study comparison: March 27, 2018, bilateral MG screening mammo w CAD. May 03, 2011, mammogram, performed at [facility]. There are scattered fibroglandular densities. No significant changes when compared with prior studies. ASSESSMENT: Benign, BI-RAD 2 RECOMMENDATION: Routine screening mammogram of both breasts in 1 year.
== END | disposition home or self-care (01) ==
LOC: RADMAMWWP 07:15
PROVIDERS: ATTEND Family Medicine
DX: Z12.31 Encounter for screening mammogram for malignant neoplasm of breast (principal); Z78.0 Asymptomatic menopausal state; Z80.3 Family history of malignant neoplasm of breast
CPT/HCPCS: 77063; 77067

== ENCOUNTER 2021-02-06 23:46 | Emergency (ER) | payer BC, OTHER ==
[2021-02-06 23:59] VITALS: TEMP 97.9
[2021-02-07 00:19] LABS: Appearance,Urine Cloudy (Clear); Bacteria,Urine Rare /hpf; Bilirubin,Urine Negative (Negative); Blood,Urine Negative (Negative); Color,Urine Yellow; Glucose,Urine (UA) 2+ (Negative); Hyaline Casts,Urine 1 /lpf (0-2); Ketones,Urine Trace (Negative); Leukocyte Esterase,Urine Negative (Negative); Mucus,Urine Moderate /hpf; Nitrite,Urine Negative (Negative); PH, Urine 5.5 (5.0-8.0); Protein,Urine 1+ (Negative); RBC,Urine 8 /hpf (0-5); Specific Gravity,Urine 1.032 (1.001-1.035); Squamous Epithelial Cell,Urine 8 /hpf (0-4); WBC,Urine 2 /hpf (0-5)
[2021-02-07 00:21] LABS: Basophils # (A) 0.1 k/uL (0-0.2); Basophils % (A) 1 %; Eosinophils # (A) 0.2 k/uL (0-0.7); Eosinophils % (A) 2 %; HCT 40.7 % (34.0-46.0); HGB 14.6 gm/dL (11.4-16.0); Lymphocytes # (A) 4.6 k/uL (1.0-4.8); Lymphocytes % (A) 40 %; MCH 31.2 pg (25.0-35.0); MCHC 35.9 g/dL (31.0-37.0); MCV 86.9 fL (80.0-100.0); Mean Platelet Volume 7.2; Monocytes # (A) 0.6 k/uL (0-1.0); Monocytes % (A) 5 %; Neutrophils # (A) 5.8 k/uL (1.3-7.7); Neutrophils % (A) 51 %; Platelet Count 248 k/uL (150-450); RBC 4.68 m/uL (3.80-5.40); RDW 12.7 % (11.5-15.5); WBC 11.4 k/uL (3.8-10.6)
[2021-02-07 00:37] LABS: ALT 40 U/L (4-34); AST 37 U/L (14-36); African American GFR (CKD) >90 (>60 ml/min/1.73 sqM); Albumin 4.1 g/dL (3.5-5.0); Alkaline Phosphatase 94 U/L (38-126); Amylase 52 U/L (30-110); Anion Gap 10 mmol/L; Blood Urea Nitrogen 10 mg/dL (7-17); Calcium 9.2 mg/dL (8.4-10.2); Carbon Dioxide 20 mmol/L (22-30); Chloride 106 mmol/L (98-107); Glucose 226 mg/dL (74-99); Lipase 156 U/L (23-300); Non-African American GFR(CKD) >90 (>60 ml/min/1.73 sqM); Potassium 3.3 mmol/L (3.5-5.1); Sodium 136 mmol/L (137-145); Total Bilirubin 0.5 mg/dL (0.2-1.3); Total Protein 6.6 g/dL (6.3-8.2)
[2021-02-07] MEDS ORDERED: MORPHINE SULFATE 4 MG/ML SYRINGE IV STA (00:42)
--- NOTE | 2021-02-07 00:46 | ED ---
Abdominal Pain HPI - General Chief Complaint: Abdominal Pain Stated Complaint: kidney stone Time Seen by Provider: 02/06/21 23:59 Source: patient Mode of arrival: ambulatory Limitations: no limitations - History of Present Illness MD Complaint: flank pain -: days(s) Location: L flank Migration to: no migration Severity: moderate Quality: aching, sharp Consistency: colicky Improves With: nothing Worsens With: nothing Associated Symptoms: nausea, vomiting - Related Data Home Medications Medication Instructions Recorded Confirmed oxyCODONE-APAP 10-325MG [Percocet 1 tab PO Q6H PRN 08/29/17 04/21/20 10-325 mg] PARoxetine HCL [Paxil] 40 mg PO DAILY 03/12/18 04/21/20 Topiramate [Topamax] 100 mg PO BID 03/12/18 04/21/20 PARoxetine [Paxil] 20 mg PO DAILY 06/04/18 04/21/20 Atorvastatin [Lipitor] 40 mg PO DAILY 07/16/19 04/21/20 Insulin Glargine,Hum.rec.anlog 40 unit SQ HS 01/26/20 04/21/20 [Basaglar Kwikpen U-100] lisinopriL [Zestril] 10 mg PO DAILY 01/26/20 04/21/20 Montelukast [Singulair] 10 mg PO DAILY 02/09/20 04/21/20 ARIPiprazole [Abilify] 15 mg PO HS 04/04/20 04/21/20 Insulin Lispro [Admelog Solostar] 6 units SQ AC-TID 04/04/20 04/21/20 Mirtazapine 7.5 mg PO HS 04/04/20 04/21/20 OXcarbazepine [Trileptal] 300 mg PO BID 04/04/20 04/21/20 metFORMIN HCL [Glucophage] 1,000 mg PO BID 04/04/20 04/21/20 Loratadine 10 mg PO DAILY 04/21/20 04/21/20 Previous Rx's Medication Instructions Recorded SUMAtriptan succinate [Imitrex] 100 mg PO DAILY PRN tab 08/02/17 Ciprofloxacin HCl [Cipro] 500 mg PO Q12HR 1 Days #6 tab 05/27/20 Clindamycin Gel [Clindamycin 1 applic TOPICAL BID #1 tube 09/09/20 Phosphate 1% Gel] Fluconazole [Diflucan] 150 mg PO ONCE #1 tab 10/15/20 Ciprofloxacin HCl [Cipro] 500 mg PO Q12HR #14 tablet 12/11/20 Allergies Allergy/AdvReac Type Severity Reaction Status Date / Time bupropion HCl Allergy Rash/Hives Verified 02/06/21 23:58 [From Wellbutrin] divalproex sodium Allergy Unknown Verified 02/06/21 23:58 [From Depakote] fentanyl Allergy Swelling Verified 02/06/21 23:58 Iodinated Contrast Media Allergy Anaphylaxis Verified 02/06/21 23:58 [Iodinated Contrast Media - IV Dye] orange juice [[place]] Allergy Rash/Hives Verified 02/06/21 23:58 Sulfa (Sulfonamide Allergy Rash/Hives Verified 02/06/21 23:58 Antibiotics) Penicillins AdvReac Nausea & Verified 02/06/21 23:58 Vomiting Review of Systems ROS Statement: Those systems with pertinent positive or pertinent negative responses have been documented in the HPI. ROS Other: All systems not noted in ROS Statement are negative. Constitutional: Denies: fever, chills Respiratory: Denies: cough, dyspnea Cardiovascular: Denies: chest pain, palpitations Gastrointestinal: Reports: as per HPI, abdominal pain, nausea, vomiting. 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 History of Any Multi-Drug Resistant Organisms: ESBL Date of last positivie culture/infection: 05/14/17 MDRO Source:: ESBL URINE, Past Surgical History: Bladder Surgery, Section, Cholecystectomy, Hysterectomy, Orthopedic Surgery, Tubal Ligation Additional Past Surgical History / Comment(s): R ovarian cystectomy, laparoscopic surgery for L ovary that had attached to the bowel, D&C, numerous lithotripsies, nephroscopies, cystoscopies and stents to ureters-none in place at this time, L robotic pyeloplasty with post op infection around kidney which then required a picc line/later removed (pt states was not MRSA), L rotator cuff repair, L wrist tendon surgery, colonoscopy Past Anesthesia/Blood Transfusion Reactions: Family History of Problems w/ Anesthesia Additional Past Anesthesia/Blood Transfusion Reaction / Comment(s): dad-hard time waking up due to enzyme problems in liver Past Psychological History: ADD/ADHD, Anxiety, Bipolar, Depression, PTSD Smoking Status: Current every day smoker Past Alcohol Use History: None Reported Past Drug Use History: None Reported - Past Family History Brother(s) Family Medical History: Cancer Additional Family Medical History / Comment(s): testicular Father Family Medical History: Coronary Artery Disease (CAD), CVA/TIA, Diabetes Mellitus, Renal Disease Additional Family Medical History / Comment(s): GLAUCOMA,NEUROPATHY HAD TRIPLE CABG, at 56yrs from renal disease. Mother Family Medical History: Hyperlipidemia Additional Family Medical History / Comment(s): DDD, HAD 3 vessel CABG AGE 54. General Exam Limitations: no limitations General appearance: alert, in no apparent distress Head exam: Present: atraumatic, normocephalic Eye exam: Present: normal appearance. Absent: scleral icterus, conjunctival injection Respiratory exam: Present: normal lung sounds bilaterally. Absent: respiratory distress, wheezes, rales, rhonchi, stridor Cardiovascular Exam: Present: regular rate, normal rhythm, normal heart sounds. Absent: systolic murmur, diastolic murmur, rubs, gallop GI/Abdominal exam: Present: soft. Absent: distended, tenderness, guarding, rebound, rigid, mass Extremities exam: Present: normal inspection, normal capillary refill. Absent: pedal edema, calf tenderness Back exam: Present: normal inspection, CVA tenderness (L). Absent: CVA ten derness (R), paraspinal tenderness, vertebral tenderness Neurological exam: Present: alert Skin exam: Present: warm, dry, intact, normal color. Absent: rash Course Vital Signs 02/06/21 23:55 Temperature 97.9 F Pulse Rate 100 Respiratory 22 Rate Blood Pressure 120/82 O2 Sat by Pulse 97 Oximetry Medical Decision Making - Lab Data Result diagrams: 02/07/21 00:09 02/07/21 00:09 Lab Results 02/07/21 02/07/21 02/07/21 Range/Units 00:07 00:09 00:09 WBC 11.4 H (3.8-10.6) k/uL RBC 4.68 (3.80-5.40) m/uL Hgb 14.6 (11.4-16.0) gm/dL Hct 40.7 (34.0-46.0) % MCV 86.9 (80.0-100.0) fL MCH 31.2 (25.0-35.0) pg MCHC 35.9 (31.0-37.0) g/dL RDW 12.7 (11.5-15.5) % Plt Count 248 (150-450) k/uL MPV 7.2 Neutrophils % 51 % Lymphocytes % 40 % Monocytes % 5 % Eosinophils % 2 % Basophils % 1 % Neutrophils # 5.8 (1.3-7.7) k/uL Lymphocytes # 4.6 (1.0-4.8) k/uL Monocytes # 0.6 (0-1.0) k/uL Eosinophils # 0.2 (0-0.7) k/uL Basophils # 0.1 (0-0.2) k/uL Sodium 136 L (137-145) mmol/L Potassium 3.3 L (3.5-5.1) mmol/L Chloride 106 (98-107) mmol/L Carbon Dioxide 20 L (22-30) mmol/L Anion Gap 10 mmol/L BUN 10 (7-17) mg/dL Creatinine 0.63 (0.52-1.04) mg/dL Est GFR (CKD-EPI)AfAm >90 (>60 ml/min/1.73 sqM) Est GFR (CKD-EPI)NonAf >90 (>60 ml/min/1.73 sqM) Glucose 226 H (74-99) mg/dL Calcium 9.2 (8.4-10.2) mg/dL Total Bilirubin 0.5 (0.2-1.3) mg/dL AST 37 H (14-36) U/L ALT 40 H (4-34) U/L Alkaline Phosphatase 94 (38-126) U/L Total Protein 6.6 (6.3-8.2) g/dL Albumin 4.1 (3.5-5.0) g/dL Amylase 52 (30-110) U/L Lipase 156 (23-300) U/L Urine Color Yellow Urine Appearance Cloudy H (Clear) Urine pH 5.5 (5.0-8.0) Ur Specific [place] 1.032 (1.001-1.035) Urine Protein 1+ H (Negative) Urine Glucose (UA) 2+ H (Negative) Urine Ketones Trace H (Negative) Urine Blood Negative (Negative) Urine Nitrite Negative (Negative) Urine Bilirubin Negative (Negative) Urine Urobilinogen 2.0 (<2.0) mg/dL Ur Leukocyte Esterase Negative (Negative) Urine RBC 8 H (0-5) /hpf Urine WBC 2 (0-5) /hpf Ur Squamous Epith Cells 8 H (0-4) /hpf Urine Bacteria Rare H (None) /hpf Hyaline Casts 1 (0-2) /lpf Urine Mucus Moderate H (None) /hpf Disposition Clinical Impression: Flank pain Disposition: HOME SELF-CARE Condition: Good Instructions (If sedation given, give patient instructions): Flank Pain (ED) Is patient prescribed a controlled substance at d/c from ED?: No Referrals: Elida Basurto MD [Primary Care Provider] - 1-2 days
[2021-02-07 01:01] VITALS: BP 125/79; PULSE 85; RESP 18
== END 2021-02-07 01:00 | disposition home or self-care (01) ==
LOC: EC 23:46
DX: R10.9 Unspecified abdominal pain (principal); E11.9 Type 2 diabetes mellitus without complications; I10 Essential (primary) hypertension; E78.5 Hyperlipidemia, unspecified; K21.9 Gastro-esophageal reflux disease without esophagitis; F31.9 Bipolar disorder, unspecified; F41.9 Anxiety disorder, unspecified; F17.200 Nicotine dependence, unspecified, uncomplicated; Z79.4 Long term (current) use of insulin; Z79.899 Other long term (current) drug therapy; Z88.0 Allergy status to penicillin; Z88.2 Allergy status to sulfonamides; Z88.8 Allergy status to other drugs, medicaments and biological substances
CPT/HCPCS: 36415; 80053; 82150; 83690; 85025; 81001; 96374; 99284; J2270

== ENCOUNTER 2021-02-15 00:25 | Emergency (ER) | payer BC, OTHER ==
[2021-02-15 00:48] VITALS: TEMP 98.4
[2021-02-15] MEDS ORDERED: SODIUM CHLORIDE 0.9% 1,000 ML IV STA (01:28)
[2021-02-15] MEDS ORDERED: HYDROmorphone 0.5 MG/0.5 ML SYRINGE IVP STA ×2 (01:28→02:56)
--- NOTE | 2021-02-15 01:41 | ED ---
General Adult HPI - General Chief complaint: Abdominal Pain Stated complaint: kidney stones Time Seen by Provider: 02/15/21 01:14 Source: patient, RN notes reviewed Mode of arrival: ambulatory Limitations: no limitations - History of Present Illness Initial comments: 45-year-old female well-known to this emergency room presents to the emergency department for a chief complaint of left flank and abdominal pain. This started this morning around 5 AM. Patient states this feels like her normal kidney stone. States she is currently in a lot of pain. Admits to nausea but denies vomiting.Patient has no other complaints at this time including shortness of breath, chest pain, nausea or vomiting, headache, or visual changes. - Related Data Home Medications Medication Instructions Recorded Confirmed oxyCODONE-APAP 10-325MG [Percocet 1 tab PO Q6H PRN 08/29/17 04/21/20 10-325 mg] PARoxetine HCL [Paxil] 40 mg PO DAILY 03/12/18 04/21/20 Topiramate [Topamax] 100 mg PO BID 03/12/18 04/21/20 PARoxetine [Paxil] 20 mg PO DAILY 06/04/18 04/21/20 Atorvastatin [Lipitor] 40 mg PO DAILY 07/16/19 04/21/20 Insulin Glargine,Hum.rec.anlog 40 unit SQ HS 01/26/20 04/21/20 [Basaglar Kwikpen U-100] lisinopriL [Zestril] 10 mg PO DAILY 01/26/20 04/21/20 Montelukast [Singulair] 10 mg PO DAILY 02/09/20 04/21/20 ARIPiprazole [Abilify] 15 mg PO HS 04/04/20 04/21/20 Insulin Lispro [Admelog Solostar] 6 units SQ AC-TID 04/04/20 04/21/20 Mirtazapine 7.5 mg PO HS 04/04/20 04/21/20 OXcarbazepine [Trileptal] 300 mg PO BID 04/04/20 04/21/20 metFORMIN HCL [Glucophage] 1,000 mg PO BID 04/04/20 04/21/20 Loratadine 10 mg PO DAILY 04/21/20 04/21/20 Previous Rx's Medication Instructions Recorded SUMAtriptan succinate [Imitrex] 100 mg PO DAILY PRN tab 08/02/17 Ciprofloxacin HCl [Cipro] 500 mg PO Q12HR 1 Days #6 tab 05/27/20 Clindamycin Gel [Clindamycin 1 applic TOPICAL BID #1 tube 09/09/20 Phosphate 1% Gel] Fluconazole [Diflucan] 150 mg PO ONCE #1 tab 10/15/20 Ciprofloxacin HCl [Cipro] 500 mg PO Q12HR #14 tablet 12/11/20 Allergies Allergy/AdvReac Type Severity Reaction Status Date / Time bupropion HCl Allergy Rash/Hives Verified 02/15/21 00:46 [From Wellbutrin] divalproex sodium Allergy Unknown Verified 02/15/21 00:46 [From Depakote] fentanyl Allergy Swelling Verified 02/15/21 00:46 Iodinated Contrast Media Allergy Anaphylaxis Verified 02/15/21 00:46 [Iodinated Contrast Media - IV Dye] orange juice [[place]] Allergy Rash/Hives Verified 02/15/21 00:46 Sulfa (Sulfonamide Allergy Rash/Hives Verified 02/15/21 00:46 Antibiotics) Penicillins AdvReac Nausea & Verified 02/15/21 00:46 Vomiting Review of Systems ROS Statement: Those systems with pertinent positive or pertinent negative responses have been documented in the HPI. ROS Other: All systems not noted in ROS Statement are negative. 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 History of Any Multi-Drug Resistant Organisms: ESBL Date of last positivie culture/infection: 05/14/17 MDRO Source:: ESBL URINE, Past Surgical History: Bladder Surgery, Section, Cholecystectomy, Hysterectomy, Orthopedic Surgery, Tubal Ligation Additional Past Surgical History / Comment(s): R ovarian cystectomy, laparoscopic surgery for L ovary that had attached to the bowel, D&C, numerous lithotripsies, nephroscopies, cystoscopies and stents to ureters-none in place at this time, L robotic pyeloplasty with post op infection around kidney which then required a picc line/later removed (pt states was not MRSA), L rotator cuff repair, L wrist tendon surgery, colonoscopy Past Anesthesia/Blood Transfusion Reactions: Family History of Problems w/ Anesthesia Additional Past Anesthesia/Blood Transfusion Reaction / Comment(s): dad-hard time waking up due to enzyme problems in liver Past Psychological History: ADD/ADHD, Anxiety, Bipolar, Depression, PTSD Smoking Status: Current every day smoker Past Alcohol Use History: None Reported Past Drug Use History: None Reported - Past Family History Brother(s) Family Medical History: Cancer Additional Family Medical History / Comment(s): testicular Father Family Medical History: Coronary Artery Disease (CAD), CVA/TIA, Diabetes Mellitus, Renal Disease Additional Family Medical History / Comment(s): GLAUCOMA,NEUROPATHY HAD TRIPLE CABG, at 56yrs from renal disease. Mother Family Medical History: Hyperlipidemia Additional Family Medical History / Comment(s): DDD, HAD 3 vessel CABG AGE 54. General Exam Limitations: no limitations General appearance: alert Head exam: Present: atraumatic Eye exam: Present: normal appearance, PERRL, EOMI. Absent: scleral icterus ENT exam: Present: normal exam, mucous membranes moist Neck exam: Present: normal inspection, full ROM. Absent: tenderness Respiratory exam: Present: normal lung sounds bilaterally. Absent: respiratory distress, wheezes Cardiovascular Exam: Present: regular rate, normal rhythm, normal heart sounds GI/Abdominal exam: Present: soft, tenderness (Mild left lower quadrant tenderness), normal bowel sounds. Absent: distended Back exam: Present: CVA tenderness (L). Absent: CVA tenderness (R) Course Vital Signs 02/15/21 00:46 Temperature 98.4 F Pulse Rate 93 Respiratory 16 Rate Blood Pressure 117/79 O2 Sat by Pulse 98 Oximetry Medical Decision Making - Medical Decision Making Vitals are stable. Patient is well-appearing. CBC CMP unremarkable. Patient does have hyper glycemia with a history of diabetes. Urinalysis does show blood. X-ray unremarkable. Patient was given pain medication and did have significant improvement symptoms. Symptoms are likely secondary to kidney stone. Patient will return for any worsening symptoms and will otherwise follow-up with primary care. - Lab Data Result diagrams: 02/15/21 01:44 02/15/21 01:44 Lab Results 02/15/21 02/15/21 02/15/21 Range/Units 01:44 01:44 01:44 WBC 12.2 H (3.8-10.6) k/uL RBC 4.88 (3.80-5.40) m/uL Hgb 14.9 (11.4-16.0) gm/dL Hct 43.8 (34.0-46.0) % MCV 89.7 (80.0-100.0) fL MCH 30.5 (25.0-35.0) pg MCHC 34.0 (31.0-37.0) g/dL RDW 13.5 (11.5-15.5) % Plt Count 258 (150-450) k/uL MPV 7.7 Neutrophils % 58 % Lymphocytes % 33 % Monocytes % 5 % Eosinophils % 2 % Basophils % 1 % Neutrophils # 7.1 (1.3-7.7) k/uL Lymphocytes # 4.1 (1.0-4.8) k/uL Monocytes # 0.6 (0-1.0) k/uL Eosinophils # 0.3 (0-0.7) k/uL Basophils # 0.1 (0-0.2) k/uL Sodium 137 (137-145) mmol/L Potassium 3.6 (3.5-5.1) mmol/L Chloride 106 (98-107) mmol/L Carbon Dioxide 19 L (22-30) mmol/L Anion Gap 12 mmol/L BUN 12 (7-17) mg/dL Creatinine 0.68 (0.52-1.04) mg/dL Est GFR (CKD-EPI)AfAm >90 (>60 ml/min/1.73 sqM) Est GFR (CKD-EPI)NonAf >90 (>60 ml/min/1.73 sqM) Glucose 239 H (74-99) mg/dL Calcium 10.0 (8.4-10.2) mg/dL Total Bilirubin 0.8 (0.2-1.3) mg/dL AST 38 H (14-36) U/L ALT 39 H (4-34) U/L Alkaline Phosphatase 96 (38-126) U/L Total Protein 6.7 (6.3-8.2) g/dL Albumin 4.2 (3.5-5.0) g/dL Urine Color Yellow Urine Appearance Cloudy H (Clear) Urine pH 6.5 (5.0-8.0) Ur Specific [place] 1.018 (1.001-1.035) Urine Protein Trace H (Negative) Urine Glucose (UA) Negative (Negative) Urine Ketones Trace H (Negative) Urine Blood Large H (Negative) Urine Nitrite Negative (Negative) Urine Bilirubin Negative (Negative) Urine Urobilinogen 4.0 (<2.0) mg/dL Ur Leukocyte Esterase Trace H (Negative) Urine RBC >182 H (0-5) /hpf Urine WBC 7 H (0-5) /hpf Ur Squamous Epith Cells 9 H (0-4) /hpf Calcium Oxalate Crystal Rare H (None) /hpf Amorphous Sediment Rare H (None) /hpf Urine Bacteria Occasional H (None) /hpf Hyaline Casts 6 H (0-2) /lpf Urine Mucus Rare H (None) /hpf Disposition Clinical Impression: Flank pain Disposition: HOME SELF-CARE Condition: Good Instructions (If sedation given, give patient instructions): Kidney Stones (ED) Additional Instructions: Please follow-up with your doctor in one to 2 days. Return to the emergency room for any worsening symptoms. Is patient prescribed a controlled substance at d/c from ED?: No Referrals: Elida Basurto MD [Primary Care Provider] - 1-2 days Time of Disposition: 03:16
--- NOTE | 2021-02-15 01:52 | XR ---
EXAMINATION TYPE: XR KUB DATE OF EXAM: 02/15/2021 COMPARISON: 12/29/2020 HISTORY: Abdominal pain TECHNIQUE: 2 views upright FINDINGS: There is no sign of intestinal obstruction or pneumoperitoneum. There are clips from cholec ystectomy. Fecal pattern is normal. I see no definite renal calculi. There is questionable 3 mm calci fication over the right kidney. Bony structures are intact. There is no evidence of a mass. IMPRESSION: Nonacute abdomen.
[2021-02-15 02:22] LABS: ALT 39 U/L (4-34); AST 38 U/L (14-36); African American GFR (CKD) >90 (>60 ml/min/1.73 sqM); Albumin 4.2 g/dL (3.5-5.0); Alkaline Phosphatase 96 U/L (38-126); Anion Gap 12 mmol/L; Blood Urea Nitrogen 12 mg/dL (7-17); Carbon Dioxide 19 mmol/L (22-30); Chloride 106 mmol/L (98-107); Glucose 239 mg/dL (74-99); Non-African American GFR(CKD) >90 (>60 ml/min/1.73 sqM); Potassium 3.6 mmol/L (3.5-5.1); Sodium 137 mmol/L (137-145); Total Bilirubin 0.8 mg/dL (0.2-1.3); Total Protein 6.7 g/dL (6.3-8.2)
[2021-02-15 02:38] LABS: Basophils # (A) 0.1 k/uL (0-0.2); Basophils % (A) 1 %; Eosinophils # (A) 0.3 k/uL (0-0.7); Eosinophils % (A) 2 %; HCT 43.8 % (34.0-46.0); HGB 14.9 gm/dL (11.4-16.0); Lymphocytes # (A) 4.1 k/uL (1.0-4.8); Lymphocytes % (A) 33 %; MCH 30.5 pg (25.0-35.0); MCV 89.7 fL (80.0-100.0); Mean Platelet Volume 7.7; Monocytes # (A) 0.6 k/uL (0-1.0); Monocytes % (A) 5 %; Neutrophils # (A) 7.1 k/uL (1.3-7.7); Neutrophils % (A) 58 %; Platelet Count 258 k/uL (150-450); RBC 4.88 m/uL (3.80-5.40); RDW 13.5 % (11.5-15.5); WBC 12.2 k/uL (3.8-10.6)
[2021-02-15 02:46] LABS: Amorphous Sediment,Urine Rare /hpf; Appearance,Urine Cloudy (Clear); Bacteria,Urine Occasional /hpf; Bilirubin,Urine Negative (Negative); Blood,Urine Large (Negative); Calcium Oxalate Crystals,Urine Rare /hpf; Color,Urine Yellow; Glucose,Urine (UA) Negative (Negative); Hyaline Casts,Urine 6 /lpf (0-2); Ketones,Urine Trace (Negative); Leukocyte Esterase,Urine Trace (Negative); Mucus,Urine Rare /hpf; Nitrite,Urine Negative (Negative); PH, Urine 6.5 (5.0-8.0); Protein,Urine Trace (Negative); RBC,Urine >182 /hpf (0-5); Specific Gravity,Urine 1.018 (1.001-1.035); Squamous Epithelial Cell,Urine 9 /hpf (0-4); WBC,Urine 7 /hpf (0-5)
[2021-02-15 03:46] VITALS: BP 121/69; PULSE 80; RESP 18
== END 2021-02-15 03:47 | disposition home or self-care (01) ==
LOC: EC 00:25
DX: R10.32 Left lower quadrant pain (principal); I12.9 Hypertensive chronic kidney disease with stage 1 through stage 4 chronic kidney disease, or unspecified chronic kidney disease; E11.65 Type 2 diabetes mellitus with hyperglycemia; N18.9 Chronic kidney disease, unspecified; K21.9 Gastro-esophageal reflux disease without esophagitis; E78.5 Hyperlipidemia, unspecified; F41.9 Anxiety disorder, unspecified; F31.9 Bipolar disorder, unspecified; F90.9 Attention-deficit hyperactivity disorder, unspecified type; F43.12 Post-traumatic stress disorder, chronic; F17.200 Nicotine dependence, unspecified, uncomplicated; Z90.710 Acquired absence of both cervix and uterus; Z79.4 Long term (current) use of insulin; Z88.0 Allergy status to penicillin; Z88.2 Allergy status to sulfonamides; Z91.041 Radiographic dye allergy status; Z98.51 Tubal ligation status; Z87.442 Personal history of urinary calculi; Z90.49 Acquired absence of other specified parts of digestive tract; Z87.440 Personal history of urinary (tract) infections
CPT/HCPCS: 99284; 96374; 96376; 96361 ×2; 36415; 80053; 85025; 81001; 74018; J1170

== ENCOUNTER 2021-03-08 02:17 | Emergency (ER) | payer BC, OTHER ==
[2021-03-08 02:59] VITALS: TEMP 98.1
[2021-03-08] MEDS ORDERED: diphenhydrAMINE 50 MG/ML 1 ML VIAL IVP STA (03:23)
[2021-03-08] MEDS ORDERED: PROCHLORPERAZINE INJ 10 MG/2 ML VIAL IVP STA (03:23)
[2021-03-08] MEDS ORDERED: KETOROLAC 15 MG/ML 1 ML VIAL IVP STA (03:23)
[2021-03-08] MEDS ORDERED: HYDROmorphone 1 MG/ML 1 ML SYRINGE IVP STA (03:23)
[2021-03-08] MEDS ORDERED: SODIUM CHLORIDE 0.9% 1,000 ML IV STA (03:23)
--- NOTE | 2021-03-08 03:41 | ED ---
Recheck HPI - General Chief Complaint: Abdominal Pain Stated Complaint: kidney stones Time Seen by Provider: 03/08/21 03:04 Source: patient Mode of arrival: ambulatory Limitations: no limitations - Related Data Home Medications Medication Instructions Recorded Confirmed oxyCODONE-APAP 10-325MG [Percocet 1 tab PO Q6H PRN 08/29/17 04/21/20 10-325 mg] PARoxetine HCL [Paxil] 40 mg PO DAILY 03/12/18 04/21/20 Topiramate [Topamax] 100 mg PO BID 03/12/18 04/21/20 PARoxetine [Paxil] 20 mg PO DAILY 06/04/18 04/21/20 Atorvastatin [Lipitor] 40 mg PO DAILY 07/16/19 04/21/20 Insulin Glargine,Hum.rec.anlog 40 unit SQ HS 01/26/20 04/21/20 [Basaglar Kwikpen U-100] lisinopriL [Zestril] 10 mg PO DAILY 01/26/20 04/21/20 Montelukast [Singulair] 10 mg PO DAILY 02/09/20 04/21/20 ARIPiprazole [Abilify] 15 mg PO HS 04/04/20 04/21/20 Insulin Lispro [Admelog Solostar] 6 units SQ AC-TID 04/04/20 04/21/20 Mirtazapine 7.5 mg PO HS 04/04/20 04/21/20 OXcarbazepine [Trileptal] 300 mg PO BID 04/04/20 04/21/20 metFORMIN HCL [Glucophage] 1,000 mg PO BID 04/04/20 04/21/20 Loratadine 10 mg PO DAILY 04/21/20 04/21/20 Previous Rx's Medication Instructions Recorded SUMAtriptan succinate [Imitrex] 100 mg PO DAILY PRN tab 08/02/17 Ciprofloxacin HCl [Cipro] 500 mg PO Q12HR 1 Days #6 tab 05/27/20 Clindamycin Gel [Clindamycin 1 applic TOPICAL BID #1 tube 09/09/20 Phosphate 1% Gel] Fluconazole [Diflucan] 150 mg PO ONCE #1 tab 10/15/20 Ciprofloxacin HCl [Cipro] 500 mg PO Q12HR #14 tablet 12/11/20 Allergies Allergy/AdvReac Type Severity Reaction Status Date / Time bupropion HCl Allergy Rash/Hives Verified 03/08/21 02:59 [From Wellbutrin] divalproex sodium Allergy Unknown Verified 03/08/21 02:59 [From Depakote] fentanyl Allergy Swelling Verified 03/08/21 02:59 Iodinated Contrast Media Allergy Anaphylaxis Verified 03/08/21 02:59 [Iodinated Contrast Media - IV Dye] orange juice [[place]] Allergy Rash/Hives Verified 03/08/21 02:59 Sulfa (Sulfonamide Allergy Rash/Hives Verified 03/08/21 02:59 Antibiotics) Penicillins AdvReac Nausea & Verified 03/08/21 02:59 Vomiting Review of Systems ROS Statement: Those systems with pertinent positive or pertinent negative responses have been documented in the HPI. ROS Other: All systems not noted in ROS Statement are negative. 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 History of Any Multi-Drug Resistant Organisms: ESBL Date of last positivie culture/infection: 05/14/17 MDRO Source:: ESBL URINE, Past Surgical History: Bladder Surgery, Section, Cholecystectomy, Hysterectomy, Orthopedic Surgery, Tubal Ligation Additional Past Surgical History / Comment(s): R ovarian cystectomy, laparoscopic surgery for L ovary that had attached to the bowel, D&C, numerous lithotripsies, nephroscopies, cystoscopies and stents to ureters-none in place at this time, L robotic pyeloplasty with post op infection around kidney which then required a picc line/later removed (pt states was not MRSA), L rotator cuff repair, L wrist tendon surgery, colonoscopy Past Anesthesia/Blood Transfusion Reactions: Family History of Problems w/ Anesthesia Additional Past Anesthesia/Blood Transfusion Reaction / Comment(s): dad-hard time waking up due to enzyme problems in liver Past Psychological History: ADD/ADHD, Anxiety, Bipolar, Depression, PTSD Smoking Status: Current every day smoker Past Alcohol Use History: None Reported Past Drug Use History: None Reported - Past Family History Brother(s) Family Medical History: Cancer Additional Family Medical History / Comment(s): testicular Father Family Medical History: Coronary Artery Disease (CAD), CVA/TIA, Diabetes Mellitus, Renal Disease Additional Family Medical History / Comment(s): GLAUCOMA,NEUROPATHY HAD TRIPLE CABG, at 56yrs from renal disease. Mother Family Medical History: Hyperlipidemia Additional Family Medical History / Comment(s): DDD, HAD 3 vessel CABG AGE 54. General Exam Limitations: no limitations Course Vital Signs 03/08/21 02:57 Temperature 98.1 F Pulse Rate 91 Respiratory 16 Rate Blood Pressure 113/78 O2 Sat by Pulse 97 Oximetry Medical Decision Making - Lab Data Result diagrams: 03/08/21 03:44 03/08/21 03:44 Lab Results 03/08/21 03/08/21 03/08/21 Range/Units 03:44 03:44 03:44 WBC 9.8 (3.8-10.6) k/uL RBC 4.78 (3.80-5.40) m/uL Hgb 15.1 (11.4-16.0) gm/dL Hct 43.2 (34.0-46.0) % MCV 90.3 (80.0-100.0) fL MCH 31.5 (25.0-35.0) pg MCHC 34.9 (31.0-37.0) g/dL RDW 12.2 (11.5-15.5) % Plt Count 208 (150-450) k/uL MPV 7.8 Neutrophils % 54 % Lymphocytes % 36 % Monocytes % 5 % Eosinophils % 4 % Basophils % 1 % Neutrophils # 5.2 (1.3-7.7) k/uL Lymphocytes # 3.5 (1.0-4.8) k/uL Monocytes # 0.4 (0-1.0) k/uL Eosinophils # 0.4 (0-0.7) k/uL Basophils # 0.1 (0-0.2) k/uL Sodium 134 L (137-145) mmol/L Potassium 3.6 (3.5-5.1) mmol/L Chloride 104 (98-107) mmol/L Carbon Dioxide 18 L (22-30) mmol/L Anion Gap 12 mmol/L BUN 11 (7-17) mg/dL Creatinine 0.57 (0.52-1.04) mg/dL Est GFR (CKD-EPI)AfAm >90 (>60 ml/min/1.73 sqM) Est GFR (CKD-EPI)NonAf >90 (>60 ml/min/1.73 sqM) Glucose 257 H (74-99) mg/dL Calcium 9.4 (8.4-10.2) mg/dL Total Bilirubin 0.7 (0.2-1.3) mg/dL AST 36 (14-36) U/L ALT 35 H (4-34) U/L Alkaline Phosphatase 98 (38-126) U/L Total Protein 6.6 (6.3-8.2) g/dL Albumin 4.1 (3.5-5.0) g/dL Amylase 39 (30-110) U/L Lipase 104 (23-300) U/L Urine Color Yellow Urine Appearance Cloudy H (Clear) Urine pH 6.0 (5.0-8.0) Ur Specific [place] 1.010 (1.001-1.035) Urine Protein Negative (Negative) Urine Glucose (UA) Negative (Negative) Urine Ketones Negative (Negative) Urine Blood Large H (Negative) Urine Nitrite Negative (Negative) Urine Bilirubin Negative (Negative) Urine Urobilinogen <2.0 (<2.0) mg/dL Ur Leukocyte Esterase Trace H (Negative) Urine RBC >182 H (0-5) /hpf Urine WBC 4 (0-5) /hpf Ur Squamous Epith Cells 5 H (0-4) /hpf Urine Mucus Rare H (None) /hpf Disposition Clinical Impression: Abdominal pain Disposition: HOME SELF-CARE Condition: Good Instructions (If sedation given, give patient instructions): Abdominal Pain (ED) Is patient prescribed a controlled substance at d/c from ED?: No Referrals: Elida Basurto MD [Primary Care Provider] - 1-2 days
--- NOTE | 2021-03-08 03:53 | XR ---
EXAMINATION TYPE: XR KUB DATE OF EXAM: 03/08/2021 COMPARISON: 02/15/2021 HISTORY: Abdominal pain TECHNIQUE: 2 views upright FINDINGS: There is no sign of intestinal obstruction or pneumoperitoneum. Fecal pattern is normal. Th ere are clips from cholecystectomy. Lung bases are clear. There is no evidence of abdominal mass. IMPRESSION: Nonacute abdomen. No change.
[2021-03-08 03:54] LABS: Basophils # (A) 0.1 k/uL (0-0.2); Basophils % (A) 1 %; Eosinophils # (A) 0.4 k/uL (0-0.7); Eosinophils % (A) 4 %; HCT 43.2 % (34.0-46.0); HGB 15.1 gm/dL (11.4-16.0); Lymphocytes # (A) 3.5 k/uL (1.0-4.8); Lymphocytes % (A) 36 %; MCH 31.5 pg (25.0-35.0); MCHC 34.9 g/dL (31.0-37.0); MCV 90.3 fL (80.0-100.0); Mean Platelet Volume 7.8; Monocytes # (A) 0.4 k/uL (0-1.0); Monocytes % (A) 5 %; Neutrophils # (A) 5.2 k/uL (1.3-7.7); Neutrophils % (A) 54 %; Platelet Count 208 k/uL (150-450); RBC 4.78 m/uL (3.80-5.40); RDW 12.2 % (11.5-15.5); WBC 9.8 k/uL (3.8-10.6)
[2021-03-08 04:13] LABS: Appearance,Urine Cloudy (Clear); Bilirubin,Urine Negative (Negative); Blood,Urine Large (Negative); Color,Urine Yellow; Glucose,Urine (UA) Negative (Negative); Ketones,Urine Negative (Negative); Leukocyte Esterase,Urine Trace (Negative); Mucus,Urine Rare /hpf; Nitrite,Urine Negative (Negative); Protein,Urine Negative (Negative); RBC,Urine >182 /hpf (0-5); Squamous Epithelial Cell,Urine 5 /hpf (0-4); Urobilinogen,Urine <2.0 mg/dL (<2.0); WBC,Urine 4 /hpf (0-5)
[2021-03-08 04:26] LABS: ALT 35 U/L (4-34); AST 36 U/L (14-36); African American GFR (CKD) >90 (>60 ml/min/1.73 sqM); Albumin 4.1 g/dL (3.5-5.0); Alkaline Phosphatase 98 U/L (38-126); Amylase 39 U/L (30-110); Anion Gap 12 mmol/L; Blood Urea Nitrogen 11 mg/dL (7-17); Calcium 9.4 mg/dL (8.4-10.2); Carbon Dioxide 18 mmol/L (22-30); Chloride 104 mmol/L (98-107); Glucose 257 mg/dL (74-99); Lipase 104 U/L (23-300); Non-African American GFR(CKD) >90 (>60 ml/min/1.73 sqM); Potassium 3.6 mmol/L (3.5-5.1); Sodium 134 mmol/L (137-145); Total Bilirubin 0.7 mg/dL (0.2-1.3); Total Protein 6.6 g/dL (6.3-8.2)
[2021-03-08 05:17] VITALS: BP 102/52; PULSE 100; RESP 18
== END 2021-03-08 05:17 | disposition home or self-care (01) ==
LOC: EC 02:17
DX: R10.9 Unspecified abdominal pain (principal); E11.9 Type 2 diabetes mellitus without complications; I10 Essential (primary) hypertension; E78.5 Hyperlipidemia, unspecified; F31.9 Bipolar disorder, unspecified; F41.9 Anxiety disorder, unspecified; K21.9 Gastro-esophageal reflux disease without esophagitis; F17.200 Nicotine dependence, unspecified, uncomplicated; Z79.4 Long term (current) use of insulin; Z79.899 Other long term (current) drug therapy; Z88.0 Allergy status to penicillin; Z88.2 Allergy status to sulfonamides; Z88.8 Allergy status to other drugs, medicaments and biological substances
CPT/HCPCS: 36415; 80053; 82150; 83690; 85025; 81001; 74018; 96374; 96375 ×3; 96361; 99284; J1200; J0780; J1170; J1885

== ENCOUNTER 2021-03-17 02:46 | Emergency (ER) | payer BC, OTHER ==
[2021-03-17 03:25] VITALS: RESP 18
[2021-03-17 03:46] LABS: Basophils # (A) 0.1 k/uL (0-0.2); Basophils % (A) 1 %; Eosinophils # (A) 0.4 k/uL (0-0.7); Eosinophils % (A) 3 %; HCT 40.8 % (34.0-46.0); Lymphocytes # (A) 4.5 k/uL (1.0-4.8); Lymphocytes % (A) 37 %; MCH 30.1 pg (25.0-35.0); MCHC 34.4 g/dL (31.0-37.0); MCV 87.6 fL (80.0-100.0); Mean Platelet Volume 7.4; Monocytes # (A) 0.7 k/uL (0-1.0); Monocytes % (A) 6 %; Neutrophils # (A) 6.2 k/uL (1.3-7.7); Neutrophils % (A) 51 %; Platelet Count 275 k/uL (150-450); RBC 4.66 m/uL (3.80-5.40); RDW 11.9 % (11.5-15.5); WBC 12.2 k/uL (3.8-10.6)
--- NOTE | 2021-03-17 03:50 | XR ---
EXAMINATION TYPE: XR KUB DATE OF EXAM: 03/17/2021 COMPARISON: 03/08/2021 HISTORY: Abdominal pain TECHNIQUE: 2 views FINDINGS: There are clips from cholecystectomy. There is no sign of intestinal obstruction or pneumop eritoneum. Fecal pattern is normal. Lung bases are clear. There is slight lumbar levoscoliosis. Bony structures are intact. There are no pathologic calcifications over the kidneys. IMPRESSION: Nonacute abdomen. No adverse change.
[2021-03-17 03:54] LABS: Appearance,Urine Cloudy (Clear); Bacteria,Urine Rare /hpf; Bilirubin,Urine Negative (Negative); Blood,Urine Large (Negative); Color,Urine Yellow; Glucose,Urine (UA) Negative (Negative); Ketones,Urine Negative (Negative); Leukocyte Esterase,Urine Trace (Negative); Mucus,Urine Rare /hpf; Nitrite,Urine Negative (Negative); PH, Urine 6.5 (5.0-8.0); Protein,Urine Trace (Negative); RBC,Urine >182 /hpf (0-5); Squamous Epithelial Cell,Urine 5 /hpf (0-4); WBC,Urine 4 /hpf (0-5)
[2021-03-17 03:57] LABS: ALT 52 U/L (4-34); AST 50 U/L (14-36); African American GFR (CKD) >90 (>60 ml/min/1.73 sqM); Albumin 4.3 g/dL (3.5-5.0); Alkaline Phosphatase 110 U/L (38-126); Anion Gap 12 mmol/L; Blood Urea Nitrogen 9 mg/dL (7-17); Calcium 9.6 mg/dL (8.4-10.2); Carbon Dioxide 20 mmol/L (22-30); Chloride 106 mmol/L (98-107); Glucose 205 mg/dL (74-99); Non-African American GFR(CKD) >90 (>60 ml/min/1.73 sqM); Potassium 3.7 mmol/L (3.5-5.1); Sodium 138 mmol/L (137-145); Total Bilirubin 0.8 mg/dL (0.2-1.3)
[2021-03-17] MEDS ORDERED: MORPHINE SULFATE 4 MG/ML SYRINGE IV STA (03:59)
--- NOTE | 2021-03-17 04:36 | ED ---
Abdominal Pain HPI - General Chief Complaint: Abdominal Pain Stated Complaint: kidney stones Time Seen by Provider: 03/17/21 03:00 Source: patient Mode of arrival: ambulatory Limitations: no limitations - History of Present Illness MD Complaint: flank pain Onset/Timin -: days(s) Location: L flank Radiation: LLQ Migration to: no migration Severity: severe Quality: sharp Consistency: colicky Improves With: nothing Worsens With: nothing Associated Symptoms: nausea - Related Data Home Medications Medication Instructions Recorded Confirmed oxyCODONE-APAP 10-325MG [Percocet 1 tab PO Q6H PRN 08/29/17 04/21/20 10-325 mg] PARoxetine HCL [Paxil] 40 mg PO DAILY 03/12/18 04/21/20 Topiramate [Topamax] 100 mg PO BID 03/12/18 04/21/20 PARoxetine [Paxil] 20 mg PO DAILY 06/04/18 04/21/20 Atorvastatin [Lipitor] 40 mg PO DAILY 07/16/19 04/21/20 Insulin Glargine,Hum.rec.anlog 40 unit SQ HS 01/26/20 04/21/20 [Basaglar Kwikpen U-100] lisinopriL [Zestril] 10 mg PO DAILY 01/26/20 04/21/20 Montelukast [Singulair] 10 mg PO DAILY 02/09/20 04/21/20 ARIPiprazole [Abilify] 15 mg PO HS 04/04/20 04/21/20 Insulin Lispro [Admelog Solostar] 6 units SQ AC-TID 04/04/20 04/21/20 Mirtazapine 7.5 mg PO HS 04/04/20 04/21/20 OXcarbazepine [Trileptal] 300 mg PO BID 04/04/20 04/21/20 metFORMIN HCL [Glucophage] 1,000 mg PO BID 04/04/20 04/21/20 Loratadine 10 mg PO DAILY 04/21/20 04/21/20 Previous Rx's Medication Instructions Recorded SUMAtriptan succinate [Imitrex] 100 mg PO DAILY PRN tab 08/02/17 Ciprofloxacin HCl [Cipro] 500 mg PO Q12HR 1 Days #6 tab 05/27/20 Clindamycin Gel [Clindamycin 1 applic TOPICAL BID #1 tube 09/09/20 Phosphate 1% Gel] Fluconazole [Diflucan] 150 mg PO ONCE #1 tab 10/15/20 Ciprofloxacin HCl [Cipro] 500 mg PO Q12HR #14 tablet 12/11/20 Allergies Allergy/AdvReac Type Severity Reaction Status Date / Time bupropion HCl Allergy Rash/Hives Verified 03/17/21 02:50 [From Wellbutrin] divalproex sodium Allergy Unknown Verified 03/17/21 02:50 [From Depakote] fentanyl Allergy Swelling Verified 03/17/21 02:50 Iodinated Contrast Media Allergy Anaphylaxis Verified 03/17/21 02:50 [Iodinated Contrast Media - IV Dye] orange juice [[place]] Allergy Rash/Hives Verified 03/17/21 02:50 Sulfa (Sulfonamide Allergy Rash/Hives Verified 03/17/21 02:50 Antibiotics) Penicillins AdvReac Nausea & Verified 03/17/21 02:50 Vomiting Review of Systems ROS Statement: Those systems with pertinent positive or pertinent negative responses have been documented in the HPI. ROS Other: All systems not noted in ROS Statement are negative. Constitutional: Denies: fever, chills Respiratory: Denies: cough, dyspnea Cardiovascular: Denies: chest pain, palpitations, edema Gastrointestinal: Reports: as per HPI, abdominal pain, nausea. Denies: vomiting, diarrhea, constipation, melena, hematochezia Genitourinary: Reports: hematuria. 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 History of Any Multi-Drug Resistant Organisms: ESBL Date of last positivie culture/infection: 05/14/17 MDRO Source:: ESBL URINE, Past Surgical History: Bladder Surgery, Section, Cholecystectomy, Hysterectomy, Orthopedic Surgery, Tubal Ligation Additional Past Surgical History / Comment(s): R ovarian cystectomy, laparoscopic surgery for L ovary that had attached to the bowel, D&C, numerous lithotripsies, nephroscopies, cystoscopies and stents to ureters-none in place at this time, L robotic pyeloplasty with post op infection around kidney which then required a picc line/later removed (pt states was not MRSA), L rotator cuff repair, L wrist tendon surgery, colonoscopy Past Anesthesia/Blood Transfusion Reactions: Family History of Problems w/ Anesthesia Additional Past Anesthesia/Blood Transfusion Reaction / Comment(s): dad-hard time waking up due to enzyme problems in liver Past Psychological History: ADD/ADHD, Anxiety, Bipolar, Depression, PTSD Smoking Status: Current every day smoker Past Alcohol Use History: None Reported Past Drug Use History: None Reported - Past Family History Brother(s) Family Medical History: Cancer Additional Family Medical History / Comment(s): testicular Father Family Medical History: Coronary Artery Disease (CAD), CVA/TIA, Diabetes Mellitus, Renal Disease Additional Family Medical History / Comment(s): GLAUCOMA,NEUROPATHY HAD TRIPLE CABG, at 56yrs from renal disease. Mother Family Medical History: Hyperlipidemia Additional Family Medical History / Comment(s): DDD, HAD 3 vessel CABG AGE 54. General Exam Limitations: no limitations General appearance: alert, in no apparent distress Head exam: Present: atraumatic, normocephalic Eye exam: Present: normal appearance. Absent: scleral icterus, conjunctival injection Respiratory exam: Present: normal lung sounds bilaterally. Absent: respiratory distress, wheezes, rales, rhonchi, stridor Cardiovascular Exam: Present: regular rate, normal rhythm, normal heart sounds. Absent: systolic murmur, diastolic murmur, rubs, gallop GI/Abdominal exam: Present: soft. Absent: distended, tenderness, guarding, rebound, rigid, mass Extremities exam: Present: normal inspection, normal capillary refill. Absent: pedal edema, calf tenderness Back exam: Present: normal inspection, CVA tenderness (L). Absent: CVA tenderness (R), vertebral tenderness Neurological exam: Present: alert Skin exam: Present: warm, dry, intact, normal color. Absent: rash Course Vital Signs 03/17/21 03/17/21 02:48 03:19 Temperature 98.6 F Pulse Rate 13 L 97 Respiratory 20 18 Rate Blood Pressure 118/80 129/82 O2 Sat by Pulse 95 99 Oximetry Medical Decision Making - Lab Data Result diagrams: 03/17/21 03:12 03/17/21 03:12 Lab Results 03/17/21 03/17/21 03/17/21 Range/Units 03:12 03:12 03:12 WBC 12.2 H (3.8-10.6) k/uL RBC 4.66 (3.80-5.40) m/uL Hgb 14.0 (11.4-16.0) gm/dL Hct 40.8 (34.0-46.0) % MCV 87.6 (80.0-100.0) fL MCH 30.1 (25.0-35.0) pg MCHC 34.4 (31.0-37.0) g/dL RDW 11.9 (11.5-15.5) % Plt Count 275 (150-450) k/uL MPV 7.4 Neutrophils % 51 % Lymphocytes % 37 % Monocytes % 6 % Eosinophils % 3 % Basophils % 1 % Neutrophils # 6.2 (1.3-7.7) k/uL Lymphocytes # 4.5 (1.0-4.8) k/uL Monocytes # 0.7 (0-1.0) k/uL Eosinophils # 0.4 (0-0.7) k/uL Basophils # 0.1 (0-0.2) k/uL Sodium (137-145) mmol/L Potassium (3.5-5.1) mmol/L Chloride (98-107) mmol/L Carbon Dioxide (22-30) mmol/L Anion Gap mmol/L BUN (7-17) mg/dL Creatinine (0.52-1.04) mg/dL Est GFR (CKD-EPI)AfAm (>60 ml/min/1.73 sqM) Est GFR (CKD-EPI)NonAf (>60 ml/min/1.73 sqM) Glucose (74-99) mg/dL Calcium (8.4-10.2) mg/dL Total Bilirubin (0.2-1.3) mg/dL AST (14-36) U/L ALT (4-34) U/L Alkaline Phosphatase (38-126) U/L Total Protein (6.3-8.2) g/dL Albumin (3.5-5.0) g/dL Urine Color Yellow Urine Appearance Cloudy H (Clear) Urine pH 6.5 (5.0-8.0) Ur Specific [place] 1.020 (1.001-1.035) Urine Protein Trace H (Negative) Urine Glucose (UA) Negative (Negative) Urine Ketones Negative (Negative) Urine Blood Large H (Negative) Urine Nitrite Negative (Negative) Urine Bilirubin Negative (Negative) Urine Urobilinogen 3.0 (<2.0) mg/dL Ur Leukocyte Esterase Trace H (Negative) Urine RBC >182 H (0-5) /hpf Urine WBC 4 (0-5) /hpf Ur Squamous Epith Cells 5 H (0-4) /hpf Urine Bacteria Rare H (None) /hpf Urine Mucus Rare H (None) /hpf Urine HCG, Qual Not Detected (Not Detectd) 03/17/21 Range/Units 03:12 WBC (3.8-10.6) k/uL RBC (3.80-5.40) m/uL Hgb (11.4-16.0) gm/dL Hct (34.0-46.0) % MCV (80.0-100.0) fL MCH (25.0-35.0) pg MCHC (31.0-37.0) g/dL RDW (11.5-15.5) % Plt Count (150-450) k/uL MPV Neutrophils % % Lymphocytes % % Monocytes % % Eosinophils % % Basophils % % Neutrophils # (1.3-7.7) k/uL Lymphocytes # (1.0-4.8) k/uL Monocytes # (0-1.0) k/uL Eosinophils # (0-0.7) k/uL Basophils # (0-0.2) k/uL Sodium 138 (137-145) mmol/L Potassium 3.7 (3.5-5.1) mmol/L Chloride 106 (98-107) mmol/L Carbon Dioxide 20 L (22-30) mmol/L Anion Gap 12 mmol/L BUN 9 (7-17) mg/dL Creatinine 0.70 (0.52-1.04) mg/dL Est GFR (CKD-EPI)AfAm >90 (>60 ml/min/1.73 sqM) Est GFR (CKD-EPI)NonAf >90 (>60 ml/min/1.73 sqM) Glucose 205 H (74-99) mg/dL Calcium 9.6 (8.4-10.2) mg/dL Total Bilirubin 0.8 (0.2-1.3) mg/dL AST 50 H (14-36) U/L ALT 52 H (4-34) U/L Alkaline Phosphatase 110 (38-126) U/L Total Protein 7.0 (6.3-8.2) g/dL Albumin 4.3 (3.5-5.0) g/dL Urine Color Urine Appearance (Clear) Urine pH (5.0-8.0) Ur Specific [place] (1.001-1.035) Urine Protein (Negative) Urine Glucose (UA) (Negative) Urine Ketones (Negative) Urine Blood (Negative) Urine Nitrite (Negative) Urine Bilirubin (Negative) Urine Urobilinogen (<2.0) mg/dL Ur Leukocyte Esterase (Negative) Urine RBC (0-5) /hpf Urine WBC (0-5) /hpf Ur Squamous Epith Cells (0-4) /hpf Urine Bacteria (None) /hpf Urine Mucus (None) /hpf Urine HCG, Qual (Not Detectd) Disposition Clinical Impression: Left flank pain, chronic Disposition: HOME SELF-CARE Condition: Good Instructions (If sedation given, give patient instructions): Flank Pain (ED) Is patient prescribed a controlled substance at d/c from ED?: No Referrals: Elida Basurto MD [Primary Care Provider] - 1-2 days
[2021-03-17] MEDS ORDERED: HYDROmorphone 1 MG/ML 1 ML SYRINGE IVP STA (05:16)
[2021-03-17 05:49] VITALS: BP 120/76; PULSE 80; TEMP 98.5
== END 2021-03-17 05:49 | disposition home or self-care (01) ==
LOC: EC 02:46
DX: R10.32 Left lower quadrant pain (principal); G89.29 Other chronic pain; R11.0 Nausea; E11.9 Type 2 diabetes mellitus without complications; K21.9 Gastro-esophageal reflux disease without esophagitis; I10 Essential (primary) hypertension; E78.5 Hyperlipidemia, unspecified; F31.9 Bipolar disorder, unspecified; F41.9 Anxiety disorder, unspecified; F17.200 Nicotine dependence, unspecified, uncomplicated; F90.9 Attention-deficit hyperactivity disorder, unspecified type; Z79.4 Long term (current) use of insulin
CPT/HCPCS: 36415; 80053; 85025; 81001; 81025; 74018; 99284; 96374; 96375; J2270; J1170

== ENCOUNTER 2021-03-19 17:16 | Emergency (ER) | payer BC, OTHER ==
[2021-03-19] MEDS ORDERED: ONDANSETRON ODT 4 MG TAB PO STA (18:56)
[2021-03-19 19:41] LABS: Appearance,Urine Cloudy (Clear); Bacteria,Urine Rare /hpf; Bilirubin,Urine Negative (Negative); Blood,Urine Large (Negative); Color,Urine Light Red; Glucose,Urine (UA) Negative (Negative); Ketones,Urine Negative (Negative); Leukocyte Esterase,Urine Small (Negative); Nitrite,Urine Negative (Negative); Protein,Urine 1+ (Negative); RBC,Urine >182 /hpf (0-5); Specific Gravity,Urine 1.007 (1.001-1.035); Squamous Epithelial Cell,Urine 1 /hpf (0-4); Urobilinogen,Urine <2.0 mg/dL (<2.0); WBC,Urine 7 /hpf (0-5)
--- NOTE | 2021-03-19 19:55 | US ---
EXAMINATION TYPE: US kidneys/renal and bladder DATE OF EXAM: 03/19/2021 COMPARISON: NONE CLINICAL HISTORY: Left flank pain history kidney stones. left flank pain. History of kidney stones EXAM MEASUREMENTS: Right Kidney: 10.8 x 3.9 x 4.1 cm Left Kidney: 11.2 x 5.0 x 4.4 cm Right Kidney: dense echogenic focus mid = 0.7cm Left Kidney: no evidence of hydronephrosis Bladder: appears wnl Bilateral Jets seen: no . IMPRESSION: There is no hydronephrosis. There is echogenic focus in the right kidney that could be nonobstructing calculus. No ureteral jets were seen in the urinary bladder during the exam.
--- NOTE | 2021-03-19 20:21 | ED ---
General Adult HPI - General Chief complaint: Abdominal Pain Stated complaint: Revisit/Kidney Stones Time Seen by Provider: 03/19/21 18:35 Source: patient, RN notes reviewed, old records reviewed Mode of arrival: ambulatory Limitations: no limitations - History of Present Illness Initial comments: 45-year-old well-appearing white female presents to the emergency room with complaints of left flank pain for 3 days. Patient states that she was diagnosed with kidney stones and she has been having increasing pain. She states that she's had blood in her urine does have an appointment with urology tomorrow cannot tolerate the pain. She states that she went to an urgent care and they gave her Toradol and it did not help. She denies any fevers. -: days(s) (3) Location: left (Flank) Severity scale (1-10): 9 Quality: sharp Consistency: constant Improves with: none Worsens with: none Associated Symptoms: nausea/vomiting Treatments Prior to Arrival: none - Related Data Home Medications Medication Instructions Recorded Confirmed oxyCODONE-APAP 10-325MG [Percocet 1 tab PO Q6H PRN 08/29/17 04/21/20 10-325 mg] PARoxetine HCL [Paxil] 40 mg PO DAILY 03/12/18 04/21/20 Topiramate [Topamax] 100 mg PO BID 03/12/18 04/21/20 PARoxetine [Paxil] 20 mg PO DAILY 06/04/18 04/21/20 Atorvastatin [Lipitor] 40 mg PO DAILY 07/16/19 04/21/20 Insulin Glargine,Hum.rec.anlog 40 unit SQ HS 01/26/20 04/21/20 [Basaglar Kwikpen U-100] lisinopriL [Zestril] 10 mg PO DAILY 01/26/20 04/21/20 Montelukast [Singulair] 10 mg PO DAILY 02/09/20 04/21/20 ARIPiprazole [Abilify] 15 mg PO HS 04/04/20 04/21/20 Insulin Lispro [Admelog Solostar] 6 units SQ AC-TID 04/04/20 04/21/20 Mirtazapine 7.5 mg PO HS 04/04/20 04/21/20 OXcarbazepine [Trileptal] 300 mg PO BID 04/04/20 04/21/20 metFORMIN HCL [Glucophage] 1,000 mg PO BID 04/04/20 04/21/20 Loratadine 10 mg PO DAILY 04/21/20 04/21/20 Previous Rx's Medication Instructions Recorded SUMAtriptan succinate [Imitrex] 100 mg PO DAILY PRN tab 08/02/17 Ciprofloxacin HCl [Cipro] 500 mg PO Q12HR 1 Days #6 tab 05/27/20 Clindamycin Gel [Clindamycin 1 applic TOPICAL BID #1 tube 09/09/20 Phosphate 1% Gel] Fluconazole [Diflucan] 150 mg PO ONCE #1 tab 10/15/20 Ciprofloxacin HCl [Cipro] 500 mg PO Q12HR #14 tablet 12/11/20 Allergies Allergy/AdvReac Type Severity Reaction Status Date / Time bupropion HCl Allergy Rash/Hives Verified 03/19/21 17:59 [From Wellbutrin] divalproex sodium Allergy Unknown Verified 03/19/21 17:59 [From Depakote] fentanyl Allergy Swelling Verified 03/19/21 17:59 Iodinated Contrast Media Allergy Anaphylaxis Verified 03/19/21 17:59 [Iodinated Contrast Media - IV Dye] orange juice [[place]] Allergy Rash/Hives Verified 03/19/21 17:59 Sulfa (Sulfonamide Allergy Rash/Hives Verified 03/19/21 17:59 Antibiotics) Penicillins AdvReac Nausea & Verified 03/19/21 17:59 Vomiting Review of Systems ROS Statement: Those systems with pertinent positive or pertinent negative responses have been documented in the HPI. ROS Other: All systems not noted in ROS Statement are negative. 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 History of Any Multi-Drug Resistant Organisms: ESBL Date of last positivie culture/infection: 05/14/17 MDRO Source:: ESBL URINE, Past Surgical History: Bladder Surgery, Section, Cholecystectomy, Hysterectomy, Orthopedic Surgery, Tubal Ligation Additional Past Surgical History / Comment(s): R ovarian cystectomy, laparoscopic surgery for L ovary that had attached to the bowel, D&C, numerous lithotripsies, nephroscopies, cystoscopies and stents to ureters-none in place at this time, L robotic pyeloplasty with post op infection around kidney which then required a picc line/later removed (pt states was not MRSA), L rotator cuff repair, L wrist tendon surgery, colonoscopy Past Anesthesia/Blood Transfusion Reactions: Family History of Problems w/ Anesthesia Additional Past Anesthesia/Blood Transfusion Reaction / Comment(s): dad-hard time waking up due to enzyme problems in liver Past Psychological History: ADD/ADHD, Anxiety, Bipolar, Depression, PTSD Smoking Status: Current every day smoker Past Alcohol Use History: None Reported Past Drug Use History: None Reported - Past Family History Brother(s) Family Medical History: Cancer Additional Family Medical History / Comment(s): testicular Father Family Medical History: Coronary Artery Disease (CAD), CVA/TIA, Diabetes Mellitus, Renal Disease Additional Family Medical History / Comment(s): GLAUCOMA,NEUROPATHY HAD TRIPLE CABG, at 56yrs from renal disease. Mother Family Medical History: Hyperlipidemia Additional Family Medical History / Comment(s): DDD, HAD 3 vessel CABG AGE 54. General Exam Limitations: no limitations General appearance: alert, in no apparent distress Head exam: Present: atraumatic, normocephalic, normal inspection Eye exam: Present: normal appearance, PERRL, EOMI. Absent: scleral icterus, conjunctival injection, periorbital swelling ENT exam: Present: normal exam, mucous membranes moist Neck exam: Present: full ROM Respiratory exam: Present: normal lung sounds bilaterally. Absent: respiratory distress, wheezes, rales, rhonchi, stridor Cardiovascular Exam: Present: tachycardia GI/Abdominal exam: Present: soft, normal bowel sounds. Absent: distended, tenderness, guarding, rebound, rigid Back exam: Present: CVA tenderness (L) Neurological exam: Present: alert, oriented X3 Psychiatric exam: Present: normal affect, normal mood Skin exam: Present: warm, dry, intact, normal color. Absent: rash, cyanosis, diaphoretic Course Vital Signs 03/19/21 03/19/21 17:59 21:04 Temperature 98.3 F 98.1 F Pulse Rate 105 H 92 Respiratory 18 20 Rate Blood Pressure 132/84 136/81 O2 Sat by Pulse 98 98 Oximetry Medical Decision Making - Medical Decision Making Patient presents to the emergency room stating that she has a kidney stone on the left. She was seen in the emergency room yesterday for the same and X-ray shows no calculi. Ultrasound of the ureters kidney and bladder today shows no evidence of calculi or hydronephrosis. Patient was given Zofran for nausea in the emergency room. Her urine shows no evidence of infection, no ketones, positive blood. She was directed to increase her fluid intake and follow-up with her urologist tomorrow as I rescheduled. Take Motrin as needed for pain. Case discussed with Dr. Ga. - Lab Data Lab Results 03/19/21 Range/Units 19:13 Urine Color Light Red Urine Appearance Cloudy H (Clear) Urine pH 6.0 (5.0-8.0) Ur Specific [place] 1.007 (1.001-1.035) Urine Protein 1+ H (Negative) Urine Glucose (UA) Negative (Negative) Urine Ketones Negative (Negative) Urine Blood Large H (Negative) Urine Nitrite Negative (Negative) Urine Bilirubin Negative (Negative) Urine Urobilinogen <2.0 (<2.0) mg/dL Ur Leukocyte Esterase Small H (Negative) Urine RBC >182 H (0-5) /hpf Urine WBC 7 H (0-5) /hpf Ur Squamous Epith Cells 1 (0-4) /hpf Urine Bacteria Rare H (None) /hpf Disposition Clinical Impression: Flank pain Disposition: HOME SELF-CARE Condition: Good Additional Instructions: Keep your appointment with your urologist as scheduled tomorrow. Use Tylenol and/or Motrin as needed for pain. Increase your fluid intake to 6-8 glasses of water a day. Return to the emergency room with any new or worsening symptoms including fevers or increased pain. Is patient prescribed a controlled substance at d/c from ED?: No Referrals: Elida Basurto MD [Primary Care Provider] - 1-2 days Time of Disposition: 20:27
[2021-03-19 21:05] VITALS: BP 136/81; PULSE 92; RESP 20; TEMP 98.1
== END 2021-03-19 21:04 | disposition home or self-care (01) ==
LOC: EC 17:16
DX: R10.9 Unspecified abdominal pain (principal); E78.5 Hyperlipidemia, unspecified; E11.9 Type 2 diabetes mellitus without complications; I10 Essential (primary) hypertension; F41.9 Anxiety disorder, unspecified; F90.9 Attention-deficit hyperactivity disorder, unspecified type; F31.9 Bipolar disorder, unspecified; F43.10 Post-traumatic stress disorder, unspecified; F17.200 Nicotine dependence, unspecified, uncomplicated; Z79.4 Long term (current) use of insulin; Z79.899 Other long term (current) drug therapy; Z87.442 Personal history of urinary calculi
CPT/HCPCS: 76770; 81001; 99284

== ENCOUNTER 2021-03-21 00:52 | Emergency (ER) | payer BC, OTHER ==
[2021-03-21] MEDS ORDERED: SODIUM CHLORIDE 0.9% 1,000 ML IV STA ×2 (03:08)
[2021-03-21] MEDS ORDERED: ONDANSETRON 4 MG/2 ML VIAL IVP STA (03:08)
[2021-03-21] MEDS ORDERED: PANTOPRAZOLE 40 MG/10 ML VIAL IVP STA (03:08)
[2021-03-21] MEDS ORDERED: SODIUM CHLORIDE 0.9% 500 ML 500 ML IV STA (03:08)
[2021-03-21] MEDS ORDERED: HYDROmorphone 1 MG/ML 1 ML SYRINGE IVP STA (03:09)
[2021-03-21] MEDS ORDERED: diphenhydrAMINE 50 MG/ML 1 ML VIAL IVP STA (03:09)
[2021-03-21] MEDS ORDERED: PROCHLORPERAZINE INJ 10 MG/2 ML VIAL IVP STA (03:09)
--- NOTE | 2021-03-21 03:13 | ED ---
Recheck HPI - General Chief Complaint: Abdominal Pain Stated Complaint: kidney stones Time Seen by Provider: 03/21/21 03:02 Source: patient, RN notes reviewed, old records reviewed Mode of arrival: ambulatory Limitations: no limitations - History of Present Illness Initial Comments: This is a 45-year-old female to the emergency department today. Patient presents today for evaluation regards to severe kidney pain with history of renal colic. No fevers does have nausea no vomiting. No recent travel history or sick contacts. Pain is significantly severe in the same. Patient has had in the past. MD Complaint: medication refill request -: days(s) Returns Today for: persistent/worsening pain related to initial visit Symptoms Since Prior Visit: worsening pain Context: ran out of medication Associated Symptoms: abdominal pain Treatments Prior to Arrival: Given Pain Meds on - Related Data Home Medications Medication Instructions Recorded Confirmed oxyCODONE-APAP 10-325MG [Percocet 1 tab PO Q6H PRN 08/29/17 04/21/20 10-325 mg] PARoxetine HCL [Paxil] 40 mg PO DAILY 03/12/18 04/21/20 Topiramate [Topamax] 100 mg PO BID 03/12/18 04/21/20 PARoxetine [Paxil] 20 mg PO DAILY 06/04/18 04/21/20 Atorvastatin [Lipitor] 40 mg PO DAILY 07/16/19 04/21/20 Insulin Glargine,Hum.rec.anlog 40 unit SQ HS 01/26/20 04/21/20 [Basaglar Kwikpen U-100] lisinopriL [Zestril] 10 mg PO DAILY 01/26/20 04/21/20 Montelukast [Singulair] 10 mg PO DAILY 02/09/20 04/21/20 ARIPiprazole [Abilify] 15 mg PO HS 04/04/20 04/21/20 Insulin Lispro [Admelog Solostar] 6 units SQ AC-TID 04/04/20 04/21/20 Mirtazapine 7.5 mg PO HS 04/04/20 04/21/20 OXcarbazepine [Trileptal] 300 mg PO BID 04/04/20 04/21/20 metFORMIN HCL [Glucophage] 1,000 mg PO BID 04/04/20 04/21/20 Loratadine 10 mg PO DAILY 04/21/20 04/21/20 Previous Rx's Medication Instructions Recorded SUMAtriptan succinate [Imitrex] 100 mg PO DAILY PRN tab 08/02/17 Ciprofloxacin HCl [Cipro] 500 mg PO Q12HR 1 Days #6 tab 05/27/20 Clindamycin Gel [Clindamycin 1 applic TOPICAL BID #1 tube 09/09/20 Phosphate 1% Gel] Fluconazole [Diflucan] 150 mg PO ONCE #1 tab 10/15/20 Ciprofloxacin HCl [Cipro] 500 mg PO Q12HR #14 tablet 12/11/20 Allergies Allergy/AdvReac Type Severity Reaction Status Date / Time bupropion HCl Allergy Rash/Hives Verified 03/27/21 02:15 [From Wellbutrin] divalproex sodium Allergy Unknown Verified 03/27/21 02:15 [From Depakote] fentanyl Allergy Swelling Verified 03/27/21 02:15 Iodinated Contrast Media Allergy Anaphylaxis Verified 03/27/21 02:15 [Iodinated Contrast Media - IV Dye] orange juice [[place]] Allergy Rash/Hives Verified 03/27/21 02:15 Sulfa (Sulfonamide Allergy Rash/Hives Verified 03/27/21 02:15 Antibiotics) Penicillins AdvReac Nausea & Verified 03/27/21 02:15 Vomiting Review of Systems ROS Statement: Those systems with pertinent positive or pertinent negative responses have been documented in the HPI. ROS Other: All systems not noted in ROS Statement are negative. 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 History of Any Multi-Drug Resistant Organisms: ESBL Date of last positivie culture/infection: 05/14/17 MDRO Source:: ESBL URINE, Past Surgical History: Bladder Surgery, Section, Cholecystectomy, Hysterectomy, Orthopedic Surgery, Tubal Ligation Additional Past Surgical History / Comment(s): R ovarian cystectomy, laparoscopic surgery for L ovary that had attached to the bowel, D&C, numerous lithotripsies, nephroscopies, cystoscopies and stents to ureters-none in place at this time, L robotic pyeloplasty with post op infection around kidney which then required a picc line/later removed (pt states was not MRSA), L rotator cuff repair, L wrist tendon surgery, colonoscopy Past Anesthesia/Blood Transfusion Reactions: Family History of Problems w/ Anesthesia Additional Past Anesthesia/Blood Transfusion Reaction / Comment(s): dad-hard time waking up due to enzyme problems in liver Past Psychological History: ADD/ADHD, Anxiety, Bipolar, Depression, PTSD Smoking Status: Current every day smoker Past Alcohol Use History: None Reported Past Drug Use History: None Reported - Past Family History Brother(s) Family Medical History: Cancer Additional Family Medical History / Comment(s): testicular Father Family Medical History: Coronary Artery Disease (CAD), CVA/TIA, Diabetes Mellitus, Renal Disease Additional Family Medical History / Comment(s): GLAUCOMA,NEUROPATHY HAD TRIPLE CABG, at 56yrs from renal disease. Mother Family Medical History: Hyperlipidemia Additional Family Medical History / Comment(s): DDD, HAD 3 vessel CABG AGE 54. General Exam Limitations: no limitations General appearance: alert, in no apparent distress Head exam: Present: atraumatic, normocephalic, normal inspection Eye exam: Present: normal appearance, PERRL, EOMI. Absent: scleral icterus, conjunctival injection, periorbital swelling ENT exam: Present: normal exam, mucous membranes moist Neck exam: Present: normal inspection. Absent: tenderness, meningismus, lymphadenopathy Respiratory exam: Present: normal lung sounds bilaterally. Absent: respiratory distress, wheezes, rales, rhonchi, stridor Cardiovascular Exam: Present: regular rate, normal rhythm, normal heart sounds. Absent: systolic murmur, diastolic murmur, rubs, gallop, clicks GI/Abdominal exam: Present: soft, normal bowel sounds. Absent: distended, te nderness, guarding, rebound, rigid Extremities exam: Present: normal inspection, full ROM, normal capillary refill. Absent: tenderness, pedal edema, joint swelling, calf tenderness Back exam: Present: normal inspection Neurological exam: Present: alert, oriented X3, CN II-XII intact Psychiatric exam: Present: normal affect, normal mood Skin exam: Present: warm, dry, intact, normal color. Absent: rash Course Vital Signs 03/21/21 03/21/21 03/21/21 01:49 04:00 05:00 Temperature 98.5 F 98.1 F Pulse Rate 93 79 71 Respiratory 18 20 20 Rate Blood Pressure 120/81 122/65 132/78 O2 Sat by Pulse 97 97 99 Oximetry - Reevaluation(s) Reevaluation #1: Medical record is reviewed Patient symptoms are improving here in the emergency department Patient is informed of results and questions answered Patient is in no acute distress Medical Decision Making - Medical Decision Making 45 female to the emergency department for evaluation of severe pain severe abdominal pain and back pain. Patient can be discharged home with pain is well- controlled - Lab Data Result diagrams: 03/21/21 03:35 03/21/21 03:35 Lab Results 03/21/21 03/21/21 03/21/21 Range/Units 03:35 03:35 03:35 WBC 12.8 H (3.8-10.6) k/uL RBC 4.48 (3.80-5.40) m/uL Hgb 13.4 (11.4-16.0) gm/dL Hct 39.2 (34.0-46.0) % MCV 87.7 (80.0-100.0) fL MCH 30.0 (25.0-35.0) pg MCHC 34.2 (31.0-37.0) g/dL RDW 11.9 (11.5-15.5) % Plt Count 288 (150-450) k/uL MPV 7.6 Neutrophils % 51 % Lymphocytes % 40 % Monocytes % 5 % Eosinophils % 3 % Basophils % 0 % Neutrophils # 6.5 (1.3-7.7) k/uL Lymphocytes # 5.1 H (1.0-4.8) k/uL Monocytes # 0.6 (0-1.0) k/uL Eosinophils # 0.4 (0-0.7) k/uL Basophils # 0.1 (0-0.2) k/uL Manual Slide Review Performed Sodium 138 (137-145) mmol/L Potassium 3.7 (3.5-5.1) mmol/L Chloride 105 (98-107) mmol/L Carbon Dioxide 21 L (22-30) mmol/L Anion Gap 12 mmol/L BUN 9 (7-17) mg/dL Creatinine 0.61 (0.52-1.04) mg/dL Est GFR (CKD-EPI)AfAm >90 (>60 ml/min/1.73 sqM) Est GFR (CKD-EPI)NonAf >90 (>60 ml/min/1.73 sqM) Glucose 209 H (74-99) mg/dL Plasma Lactic Acid Brant (0.7-2.0) mmol/L Calcium 9.9 (8.4-10.2) mg/dL Total Bilirubin 0.7 (0.2-1.3) mg/dL AST 43 H (14-36) U/L ALT 44 H (4-34) U/L Alkaline Phosphatase 107 (38-126) U/L Creatine Kinase 77 (30-135) U/L Total Protein 7.2 (6.3-8.2) g/dL Albumin 4.3 (3.5-5.0) g/dL Amylase 46 (30-110) U/L Lipase 202 (23-300) U/L Urine Color Light Red Urine Appearance Cloudy H (Clear) Urine pH 5.5 (5.0-8.0) Ur Specific [place] 1.013 (1.001-1.035) Urine Protein Trace H (Negative) Urine Glucose (UA) Negative (Negative) Urine Ketones Negative (Negative) Urine Blood Large H (Negative) Urine Nitrite Negative (Negative) Urine Bilirubin Negative (Negative) Urine Urobilinogen <2.0 (<2.0) mg/dL Ur Leukocyte Esterase Small H (Negative) Urine RBC >182 H (0-5) /hpf Urine WBC 17 H (0-5) /hpf Ur Squamous Epith Cells 4 (0-4) /hpf Calcium Oxalate Crystal Few H (None) /hpf Urine Mucus Rare H (None) /hpf 03/21/21 Range/Units 03:35 WBC (3.8-10.6) k/uL RBC (3.80-5.40) m/uL Hgb (11.4-16.0) gm/dL Hct (34.0-46.0) % MCV (80.0-100.0) fL MCH (25.0-35.0) pg MCHC (31.0-37.0) g/dL RDW (11.5-15.5) % Plt Count (150-450) k/uL MPV Neutrophils % % Lymphocytes % % Monocytes % % Eosinophils % % Basophils % % Neutrophils # (1.3-7.7) k/uL Lymphocytes # (1.0-4.8) k/uL Monocytes # (0-1.0) k/uL Eosinophils # (0-0.7) k/uL Basophils # (0-0.2) k/uL Manual Slide Review Sodium (137-145) mmol/L Potassium (3.5-5.1) mmol/L Chloride (98-107) mmol/L Carbon Dioxide (22-30) mmol/L Anion Gap mmol/L BUN (7-17) mg/dL Creatinine (0.52-1.04) mg/dL Est GFR (CKD-EPI)AfAm (>60 ml/min/1.73 sqM) Est GFR (CKD-EPI)NonAf (>60 ml/min/1.73 sqM) Glucose (74-99) mg/dL Plasma Lactic Acid Brant 1.7 (0.7-2.0) mmol/L Calcium (8.4-10.2) mg/dL Total Bilirubin (0.2-1.3) mg/dL AST (14-36) U/L ALT (4-34) U/L Alkaline Phosphatase (38-126) U/L Creatine Kinase (30-135) U/L Total Protein (6.3-8.2) g/dL Albumin (3.5-5.0) g/dL Amylase (30-110) U/L Lipase (23-300) U/L Urine Color Urine Appearance (Clear) Urine pH (5.0-8.0) Ur Specific [place] (1.001-1.035) Urine Protein (Negative) Urine Glucose (UA) (Negative) Urine Ketones (Negative) Urine Blood (Negative) Urine Nitrite (Negative) Urine Bilirubin (Negative) Urine Urobilinogen (<2.0) mg/dL Ur Leukocyte Esterase (Negative) Urine RBC (0-5) /hpf Urine WBC (0-5) /hpf Ur Squamous Epith Cells (0-4) /hpf Calcium Oxalate Crystal (None) /hpf Urine Mucus (None) /hpf Disposition Clinical Impression: Abdominal pain, Renal colic on left side Disposition: HOME SELF-CARE Condition: Good Instructions (If sedation given, give patient instructions): Abdominal Pain (ED) Is patient prescribed a controlled substance at d/c from ED?: No Referrals: Elida Basurto MD [Primary Care Provider] - 1-2 days
--- NOTE | 2021-03-21 03:43 | XR ---
EXAMINATION TYPE: XR KUB DATE OF EXAM: 03/21/2021 COMPARISON: 03/17/2021 HISTORY: Abdominal pain TECHNIQUE: 2 views upright FINDINGS: There are clips from cholecystectomy. Lung bases are clear. There is no sign of intestinal obstruction or pneumoperitoneum. Fecal pattern is normal. There are no calcifications over the kidney s. There is no sign of a mass. IMPRESSION: Nonacute abdomen. No change.
[2021-03-21 04:02] LABS: Basophils # (A) 0.1 k/uL (0-0.2); Basophils % (A) 0 %; Eosinophils # (A) 0.4 k/uL (0-0.7); Eosinophils % (A) 3 %; HCT 39.2 % (34.0-46.0); HGB 13.4 gm/dL (11.4-16.0); Lymphocytes # (A) 5.1 k/uL (1.0-4.8); Lymphocytes % (A) 40 %; MCHC 34.2 g/dL (31.0-37.0); MCV 87.7 fL (80.0-100.0); Mean Platelet Volume 7.6; Monocytes # (A) 0.6 k/uL (0-1.0); Monocytes % (A) 5 %; Neutrophils # (A) 6.5 k/uL (1.3-7.7); Neutrophils % (A) 51 %; Platelet Count 288 k/uL (150-450); RBC 4.48 m/uL (3.80-5.40); RDW 11.9 % (11.5-15.5); WBC 12.8 k/uL (3.8-10.6)
[2021-03-21 04:18] LABS: ALT 44 U/L (4-34); AST 43 U/L (14-36); African American GFR (CKD) >90 (>60 ml/min/1.73 sqM); Albumin 4.3 g/dL (3.5-5.0); Alkaline Phosphatase 107 U/L (38-126); Amylase 46 U/L (30-110); Anion Gap 12 mmol/L; Blood Urea Nitrogen 9 mg/dL (7-17); Calcium 9.9 mg/dL (8.4-10.2); Carbon Dioxide 21 mmol/L (22-30); Chloride 105 mmol/L (98-107); Creatine Kinase 77 U/L (30-135); Glucose 209 mg/dL (74-99); Lipase 202 U/L (23-300); Non-African American GFR(CKD) >90 (>60 ml/min/1.73 sqM); Potassium 3.7 mmol/L (3.5-5.1); Sodium 138 mmol/L (137-145); Total Bilirubin 0.7 mg/dL (0.2-1.3); Total Protein 7.2 g/dL (6.3-8.2)
[2021-03-21 04:19] LABS: Appearance,Urine Cloudy (Clear); Bilirubin,Urine Negative (Negative); Blood,Urine Large (Negative); Calcium Oxalate Crystals,Urine Few /hpf; Color,Urine Light Red; Glucose,Urine (UA) Negative (Negative); Ketones,Urine Negative (Negative); Leukocyte Esterase,Urine Small (Negative); Mucus,Urine Rare /hpf; Nitrite,Urine Negative (Negative); PH, Urine 5.5 (5.0-8.0); Protein,Urine Trace (Negative); RBC,Urine >182 /hpf (0-5); Specific Gravity,Urine 1.013 (1.001-1.035); Squamous Epithelial Cell,Urine 4 /hpf (0-4); Urobilinogen,Urine <2.0 mg/dL (<2.0); WBC,Urine 17 /hpf (0-5)
[2021-03-21 04:42] VITALS: RESP 20
[2021-03-21 05:59] VITALS: BP 132/78; PULSE 71; TEMP 98.1
== END 2021-03-21 05:00 | disposition home or self-care (01) ==
LOC: EC 00:52
DX: N23 Unspecified renal colic (principal); E11.9 Type 2 diabetes mellitus without complications; I10 Essential (primary) hypertension; F31.9 Bipolar disorder, unspecified; F41.9 Anxiety disorder, unspecified; K21.9 Gastro-esophageal reflux disease without esophagitis; F17.200 Nicotine dependence, unspecified, uncomplicated; Z79.4 Long term (current) use of insulin; Z79.899 Other long term (current) drug therapy; Z88.2 Allergy status to sulfonamides; Z88.0 Allergy status to penicillin; Z90.49 Acquired absence of other specified parts of digestive tract; Z83.49 Family history of other endocrine, nutritional and metabolic diseases; Z83.3 Family history of diabetes mellitus; Z82.49 Family history of ischemic heart disease and other diseases of the circulatory system
CPT/HCPCS: 36415; 80053; 82150; 82550; 83605; 83690; 85025; 81001; 87086; 74018; 96374; 96375 ×3; 96361; 99284; J1200; J0780; J1170; C9113

== ENCOUNTER 2021-03-27 02:00 | Emergency (ER) | payer BC, OTHER ==
[2021-03-27 02:15] VITALS: TEMP 98
[2021-03-27 02:58] LABS: Basophils # (A) 0.1 k/uL (0-0.2); Basophils % (A) 1 %; Eosinophils # (A) 0.3 k/uL (0-0.7); Eosinophils % (A) 2 %; HCT 41.4 % (34.0-46.0); HGB 14.5 gm/dL (11.4-16.0); Lymphocytes # (A) 3.8 k/uL (1.0-4.8); Lymphocytes % (A) 31 %; MCH 30.8 pg (25.0-35.0); Mean Platelet Volume 7.7; Monocytes # (A) 0.5 k/uL (0-1.0); Monocytes % (A) 4 %; Neutrophils # (A) 7.4 k/uL (1.3-7.7); Neutrophils % (A) 61 %; Platelet Count 294 k/uL (150-450); RDW 12.7 % (11.5-15.5); WBC 12.2 k/uL (3.8-10.6)
[2021-03-27 03:13] LABS: ALT 33 U/L (4-34); AST 34 U/L (14-36); African American GFR (CKD) >90 (>60 ml/min/1.73 sqM); Albumin 4.3 g/dL (3.5-5.0); Alkaline Phosphatase 111 U/L (38-126); Amylase 54 U/L (30-110); Anion Gap 14 mmol/L; Blood Urea Nitrogen 12 mg/dL (7-17); Calcium 9.3 mg/dL (8.4-10.2); Carbon Dioxide 18 mmol/L (22-30); Chloride 100 mmol/L (98-107); Glucose 421 mg/dL (74-99); Lipase 215 U/L (23-300); Non-African American GFR(CKD) >90 (>60 ml/min/1.73 sqM); Potassium 3.7 mmol/L (3.5-5.1); Sodium 132 mmol/L (137-145); Total Bilirubin 0.7 mg/dL (0.2-1.3)
[2021-03-27 03:18] LABS: Appearance,Urine Cloudy (Clear); Bacteria,Urine Rare /hpf; Bilirubin,Urine Negative (Negative); Blood,Urine Large (Negative); Color,Urine Yellow; Glucose,Urine (UA) 4+ (Negative); Hyaline Casts,Urine 4 /lpf (0-2); Ketones,Urine Trace (Negative); Leukocyte Esterase,Urine Negative (Negative); Nitrite,Urine Negative (Negative); Protein,Urine Trace (Negative); RBC,Urine >182 /hpf (0-5); Specific Gravity,Urine 1.027 (1.001-1.035); Squamous Epithelial Cell,Urine 5 /hpf (0-4); WBC,Urine 7 /hpf (0-5)
[2021-03-27] MEDS ORDERED: HYDROmorphone 0.5 MG/0.5 ML SYRINGE IM STA (03:43)
[2021-03-27] MEDS ORDERED: INSULIN REGULAR 100 UNIT/ML VIAL (IV) SQ STA (03:43)
[2021-03-27] MEDS ORDERED: HYDROmorphone 0.5 MG/0.5 ML SYRINGE IVP STA ×2 (03:51→05:53)
[2021-03-27] MEDS ORDERED: SODIUM CHLORIDE 0.9% 1,000 ML IV ONE (03:51)
[2021-03-27 04:15] LABS: Glucose,Whole Blood 335 mg/dL (75-99)
--- NOTE | 2021-03-27 05:03 | ED ---
General Adult HPI - General Chief complaint: Urogenital Stated complaint: Kidney Stones Time Seen by Provider: 03/27/21 02:20 Source: patient Mode of arrival: ambulatory Limitations: no limitations - Related Data Home Medications Medication Instructions Recorded Confirmed oxyCODONE-APAP 10-325MG [Percocet 1 tab PO Q6H PRN 08/29/17 04/21/20 10-325 mg] PARoxetine HCL [Paxil] 40 mg PO DAILY 03/12/18 04/21/20 Topiramate [Topamax] 100 mg PO BID 03/12/18 04/21/20 PARoxetine [Paxil] 20 mg PO DAILY 06/04/18 04/21/20 Atorvastatin [Lipitor] 40 mg PO DAILY 07/16/19 04/21/20 Insulin Glargine,Hum.rec.anlog 40 unit SQ HS 01/26/20 04/21/20 [Basaglar Kwikpen U-100] lisinopriL [Zestril] 10 mg PO DAILY 01/26/20 04/21/20 Montelukast [Singulair] 10 mg PO DAILY 02/09/20 04/21/20 ARIPiprazole [Abilify] 15 mg PO HS 04/04/20 04/21/20 Insulin Lispro [Admelog Solostar] 6 units SQ AC-TID 04/04/20 04/21/20 Mirtazapine 7.5 mg PO HS 04/04/20 04/21/20 OXcarbazepine [Trileptal] 300 mg PO BID 04/04/20 04/21/20 metFORMIN HCL [Glucophage] 1,000 mg PO BID 04/04/20 04/21/20 Loratadine 10 mg PO DAILY 04/21/20 04/21/20 Previous Rx's Medication Instructions Recorded SUMAtriptan succinate [Imitrex] 100 mg PO DAILY PRN tab 08/02/17 Ciprofloxacin HCl [Cipro] 500 mg PO Q12HR 1 Days #6 tab 05/27/20 Clindamycin Gel [Clindamycin 1 applic TOPICAL BID #1 tube 09/09/20 Phosphate 1% Gel] Fluconazole [Diflucan] 150 mg PO ONCE #1 tab 10/15/20 Ciprofloxacin HCl [Cipro] 500 mg PO Q12HR #14 tablet 12/11/20 Allergies Allergy/AdvReac Type Severity Reaction Status Date / Time bupropion HCl Allergy Rash/Hives Verified 03/27/21 02:15 [From Wellbutrin] divalproex sodium Allergy Unknown Verified 03/27/21 02:15 [From Depakote] fentanyl Allergy Swelling Verified 03/27/21 02:15 Iodinated Contrast Media Allergy Anaphylaxis Verified 03/27/21 02:15 [Iodinated Contrast Media - IV Dye] orange juice [[place]] Allergy Rash/Hives Verified 03/27/21 02:15 Sulfa (Sulfonamide Allergy Rash/Hives Verified 03/27/21 02:15 Antibiotics) Penicillins AdvReac Nausea & Verified 03/27/21 02:15 Vomiting Review of Systems ROS Statement: Those systems with pertinent positive or pertinent negative responses have been documented in the HPI. ROS Other: All systems not noted in ROS Statement are negative. 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 History of Any Multi-Drug Resistant Organisms: ESBL Date of last positivie culture/infection: 05/14/17 MDRO Source:: ESBL URINE, Past Surgical History: Bladder Surgery, Section, Cholecystectomy, Hysterectomy, Orthopedic Surgery, Tubal Ligation Additional Past Surgical History / Comment(s): R ovarian cystectomy, laparoscopic surgery for L ovary that had attached to the bowel, D&C, numerous lithotripsies, nephroscopies, cystoscopies and stents to ureters-none in place at this time, L robotic pyeloplasty with post op infection around kidney which then required a picc line/later removed (pt states was not MRSA), L rotator cuff repair, L wrist tendon surgery, colonoscopy Past Anesthesia/Blood Transfusion Reactions: Family History of Problems w/ Anesthesia Additional Past Anesthesia/Blood Transfusion Reaction / Comment(s): dad-hard time waking up due to enzyme problems in liver Past Psychological History: ADD/ADHD, Anxiety, Bipolar, Depression, PTSD Smoking Status: Current every day smoker Past Alcohol Use History: None Reported Past Drug Use History: None Reported - Past Family History Brother(s) Family Medical History: Cancer Additional Family Medical History / Comment(s): testicular Father Family Medical History: Coronary Artery Disease (CAD), CVA/TIA, Diabetes Mellitus, Renal Disease Additional Family Medical History / Comment(s): GLAUCOMA,NEUROPATHY HAD TRIPLE CABG, at 56yrs from renal disease. Mother Family Medical History: Hyperlipidemia Additional Family Medical History / Comment(s): DDD, HAD 3 vessel CABG AGE 54. General Exam Limitations: no limitations Course Vital Signs 03/27/21 02:10 Temperature 98.0 F Pulse Rate 116 H Respiratory 18 Rate Blood Pressure 117/77 O2 Sat by Pulse 97 Oximetry Medical Decision Making - Lab Data Result diagrams: 03/27/21 02:25 03/27/21 02:25 Lab Results 03/27/21 03/27/21 03/27/21 Range/Units 02:25 02:25 02:25 WBC 12.2 H (3.8-10.6) k/uL RBC 4.70 (3.80-5.40) m/uL Hgb 14.5 (11.4-16.0) gm/dL Hct 41.4 (34.0-46.0) % MCV 88.0 (80.0-100.0) fL MCH 30.8 (25.0-35.0) pg MCHC 35.0 (31.0-37.0) g/dL RDW 12.7 (11.5-15.5) % Plt Count 294 (150-450) k/uL MPV 7.7 Neutrophils % 61 % Lymphocytes % 31 % Monocytes % 4 % Eosinophils % 2 % Basophils % 1 % Neutrophils # 7.4 (1.3-7.7) k/uL Lymphocytes # 3.8 (1.0-4.8) k/uL Monocytes # 0.5 (0-1.0) k/uL Eosinophils # 0.3 (0-0.7) k/uL Basophils # 0.1 (0-0.2) k/uL Sodium 132 L (137-145) mmol/L Potassium 3.7 (3.5-5.1) mmol/L Chloride 100 (98-107) mmol/L Carbon Dioxide 18 L (22-30) mmol/L Anion Gap 14 mmol/L BUN 12 (7-17) mg/dL Creatinine 0.66 (0.52-1.04) mg/dL Est GFR (CKD-EPI)AfAm >90 (>60 ml/min/1.73 sqM) Est GFR (CKD-EPI)NonAf >90 (>60 ml/min/1.73 sqM) Glucose 421 H (74-99) mg/dL POC Glucose (mg/dL) (75-99) mg/dL POC Glu Histological Illustrator ID Calcium 9.3 (8.4-10.2) mg/dL Total Bilirubin 0.7 (0.2-1.3) mg/dL AST 34 (14-36) U/L ALT 33 (4-34) U/L Alkaline Phosphatase 111 (38-126) U/L Total Protein 7.0 (6.3-8.2) g/dL Albumin 4.3 (3.5-5.0) g/dL Amylase 54 (30-110) U/L Lipase 215 (23-300) U/L Urine Color Yellow Urine Appearance Cloudy H (Clear) Urine pH 6.0 (5.0-8.0) Ur Specific [place] 1.027 (1.001-1.035) Urine Protein Trace H (Negative) Urine Glucose (UA) 4+ H (Negative) Urine Ketones Trace H (Negative) Urine Blood Large H (Negative) Urine Nitrite Negative (Negative) Urine Bilirubin Negative (Negative) Urine Urobilinogen 2.0 (<2.0) mg/dL Ur Leukocyte Esterase Negative (Negative) Urine RBC >182 H (0-5) /hpf Urine WBC 7 H (0-5) /hpf Ur Squamous Epith Cells 5 H (0-4) /hpf Urine Bacteria Rare H (None) /hpf Hyaline Casts 4 H (0-2) /lpf 03/27/21 Range/Units 04:13 WBC (3.8-10.6) k/uL RBC (3.80-5.40) m/uL Hgb (11.4-16.0) gm/dL Hct (34.0-46.0) % MCV (80.0-100.0) fL MCH (25.0-35.0) pg MCHC (31.0-37.0) g/dL RDW (11.5-15.5) % Plt Count (150-450) k/uL MPV Neutrophils % % Lymphocytes % % Monocytes % % Eosinophils % % Basophils % % Neutrophils # (1.3-7.7) k/uL Lymphocytes # (1.0-4.8) k/uL Monocytes # (0-1.0) k/uL Eosinophils # (0-0.7) k/uL Basophils # (0-0.2) k/uL Sodium (137-145) mmol/L Potassium (3.5-5.1) mmol/L Chloride (98-107) mmol/L Carbon Dioxide (22-30) mmol/L Anion Gap mmol/L BUN (7-17) mg/dL Creatinine (0.52-1.04) mg/dL Est GFR (CKD-EPI)AfAm (>60 ml/min/1.73 sqM) Est GFR (CKD-EPI)NonAf (>60 ml/min/1.73 sqM) Glucose (74-99) mg/dL POC Glucose (mg/dL) 335 H (75-99) mg/dL POC Glu Histological Illustrator ID Valles, Brooke Calcium (8.4-10.2) mg/dL Total Bilirubin (0.2-1.3) mg/dL AST (14-36) U/L ALT (4-34) U/L Alkaline Phosphatase (38-126) U/L Total Protein (6.3-8.2) g/dL Albumin (3.5-5.0) g/dL Amylase (30-110) U/L Lipase (23-300) U/L Urine Color Urine Appearance (Clear) Urine pH (5.0-8.0) Ur Specific [place] (1.001-1.035) Urine Protein (Negative) Urine Glucose (UA) (Negative) Urine Ketones (Negative) Urine Blood (Negative) Urine Nitrite (Negative) Urine Bilirubin (Negative) Urine Urobilinogen (<2.0) mg/dL Ur Leukocyte Esterase (Negative) Urine RBC (0-5) /hpf Urine WBC (0-5) /hpf Ur Squamous Epith Cells (0-4) /hpf Urine Bacteria (None) /hpf Hyaline Casts (0-2) /lpf Disposition Clinical Impression: Ureterolithiasis, Hyperglycemia due to diabetes mellitus Disposition: HOME SELF-CARE Condition: Good Instructions (If sedation given, give patient instructions): Kidney Stones (ED), Diabetic Hyperglycemia (ED) Is patient prescribed a controlled substance at d/c from ED?: No Referrals: Elida Basurto MD [Primary Care Provider] - 1-2 days
[2021-03-27 06:39] VITALS: BP 99/69; PULSE 98; RESP 20
== END 2021-03-27 06:46 | disposition home or self-care (01) ==
LOC: EC 02:00
DX: N20.2 Calculus of kidney with calculus of ureter (principal); E11.65 Type 2 diabetes mellitus with hyperglycemia; I10 Essential (primary) hypertension; E78.5 Hyperlipidemia, unspecified; K21.9 Gastro-esophageal reflux disease without esophagitis; F31.9 Bipolar disorder, unspecified; F41.9 Anxiety disorder, unspecified; F90.9 Attention-deficit hyperactivity disorder, unspecified type; F17.200 Nicotine dependence, unspecified, uncomplicated; Z79.4 Long term (current) use of insulin
CPT/HCPCS: 36415; 80053; 82150; 83690; 85025; 81001; 99283; 96374; 96376; 96361; J1170

== ENCOUNTER 2021-04-06 00:42 | Emergency (ER) | payer BC, OTHER ==
[2021-04-06 00:46] VITALS: TEMP 97.4
[2021-04-06] MEDS ORDERED: KETOROLAC 15 MG/ML 1 ML VIAL IVP STA (01:54)
[2021-04-06] MEDS ORDERED: diphenhydrAMINE 50 MG/ML 1 ML VIAL IVP STA (01:54)
[2021-04-06] MEDS ORDERED: HYDROmorphone 1 MG/ML 1 ML SYRINGE IVP STA (01:54)
[2021-04-06] MEDS ORDERED: SODIUM CHLORIDE 0.9% 1,000 ML IV STA (01:54)
[2021-04-06] MEDS ORDERED: ONDANSETRON 4 MG/2 ML VIAL IVP STA (01:54)
--- NOTE | 2021-04-06 02:33 | ED ---
Back Pain HPI - General Chief Complaint: Back Pain/Injury Stated Complaint: kidney stones Time Seen by Provider: 04/06/21 01:37 Source: patient, RN notes reviewed, old records reviewed Mode of arrival: ambulatory Limitations: no limitations - History of Present Illness Initial Comments: Patient is a 45-year-old female presenting to the emergency Department with complaints of left flank pain. She has history of kidney stones in the similar nature. Patient is well-known to this ER for similar complaint. 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 Patient denies any fevers or chills, she does have some nausea and vomiting, no abdominal pain other than the left flank pain. She denies any chest pain or shortness of breath. She denies any dysuria. She has no further complaints. - Related Data Home Medications Medication Instructions Recorded Confirmed oxyCODONE-APAP 10-325MG [Percocet 1 tab PO Q6H PRN 08/29/17 04/21/20 10-325 mg] PARoxetine HCL [Paxil] 40 mg PO DAILY 03/12/18 04/21/20 Topiramate [Topamax] 100 mg PO BID 03/12/18 04/21/20 PARoxetine [Paxil] 20 mg PO DAILY 06/04/18 04/21/20 Atorvastatin [Lipitor] 40 mg PO DAILY 07/16/19 04/21/20 Insulin Glargine,Hum.rec.anlog 40 unit SQ HS 01/26/20 04/21/20 [Basaglar Kwikpen U-100] lisinopriL [Zestril] 10 mg PO DAILY 01/26/20 04/21/20 Montelukast [Singulair] 10 mg PO DAILY 02/09/20 04/21/20 ARIPiprazole [Abilify] 15 mg PO HS 04/04/20 04/21/20 Insulin Lispro [Admelog Solostar] 6 units SQ AC-TID 04/04/20 04/21/20 Mirtazapine 7.5 mg PO HS 04/04/20 04/21/20 OXcarbazepine [Trileptal] 300 mg PO BID 04/04/20 04/21/20 metFORMIN HCL [Glucophage] 1,000 mg PO BID 04/04/20 04/21/20 Loratadine 10 mg PO DAILY 04/21/20 04/21/20 Previous Rx's Medication Instructions Recorded SUMAtriptan succinate [Imitrex] 100 mg PO DAILY PRN tab 08/02/17 Ciprofloxacin HCl [Cipro] 500 mg PO Q12HR 1 Days #6 tab 05/27/20 Clindamycin Gel [Clindamycin 1 applic TOPICAL BID #1 tube 09/09/20 Phosphate 1% Gel] Fluconazole [Diflucan] 150 mg PO ONCE #1 tab 10/15/20 Ciprofloxacin HCl [Cipro] 500 mg PO Q12HR #14 tablet 12/11/20 Allergies Allergy/AdvReac Type Severity Reaction Status Date / Time bupropion HCl Allergy Rash/Hives Verified 04/06/21 00:46 [From Wellbutrin] divalproex sodium Allergy Unknown Verified 04/06/21 00:46 [From Depakote] fentanyl Allergy Swelling Verified 04/06/21 00:46 Iodinated Contrast Media Allergy Anaphylaxis Verified 04/06/21 00:46 [Iodinated Contrast Media - IV Dye] orange juice [[place]] Allergy Rash/Hives Verified 04/06/21 00:46 Sulfa (Sulfonamide Allergy Rash/Hives Verified 04/06/21 00:46 Antibiotics) Penicillins AdvReac Nausea & Verified 04/06/21 00:46 Vomiting Review of Systems ROS Statement: Those systems with pertinent positive or pertinent negative responses have been documented in the HPI. ROS Other: All systems not noted in ROS Statement are negative. 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 History of Any Multi-Drug Resistant Organisms: ESBL Date of last positivie culture/infection: 05/14/17 MDRO Source:: ESBL URINE, Past Surgical History: Bladder Surgery, Section, Cholecystectomy, Hysterectomy, Orthopedic Surgery, Tubal Ligation Additional Past Surgical History / Comment(s): R ovarian cystectomy, laparoscopic surgery for L ovary that had attached to the bowel, D&C, numerous lithotripsies, nephroscopies, cystoscopies and stents to ureters-none in place at this time, L robotic pyeloplasty with post op infection around kidney which then required a picc line/later removed (pt states was not MRSA), L rotator cuff repair, L wrist tendon surgery, colonoscopy Past Anesthesia/Blood Transfusion Reactions: Family History of Problems w/ Anesthesia Additional Past Anesthesia/Blood Transfusion Reaction / Comment(s): dad-hard christoph e waking up due to enzyme problems in liver Past Psychological History: ADD/ADHD, Anxiety, Bipolar, Depression, PTSD Smoking Status: Current every day smoker Past Alcohol Use History: None Reported Past Drug Use History: None Reported - Past Family History Brother(s) Family Medical History: Cancer Additional Family Medical History / Comment(s): testicular Father Family Medical History: Coronary Artery Disease (CAD), CVA/TIA, Diabetes Mellitus, Renal Disease Additional Family Medical History / Comment(s): GLAUCOMA,NEUROPATHY HAD TRIPLE CABG, at 56yrs from renal disease. Mother Family Medical History: Hyperlipidemia Additional Family Medical History / Comment(s): DDD, HAD 3 vessel CABG AGE 54. General Exam - General Exam Comments Initial Comments: GENERAL: Patient is well-developed and well-nourished. Patient is nontoxic and in no acute distress. HEAD: Atraumatic, normocephalic. EYES: Pupils equal round and reactive to light, extraocular movements intact, sclera anicteric, conjunctiva are normal. Eyelids were unremarkable. ENT: Moist mucous membranes. NECK: Normal range of motion, supple without lymphadenopathy or JVD. LUNGS: Unlabored respirations. Breath sounds clear to auscultation bilaterally and equal. No wheezes rales or rhonchi. HEART: Regular rate and rhythm without murmurs, rubs or gallops. ABDOMEN: Soft, nontender, normoactive bowel sounds. No guarding, no rebound. No masses appreciated. Left flank pain. : Deferred MUSCULOSKELETAL: Normal extremities with adequate strength and normal range of motion, no pitting or edema. No clubbing or cyanosis. NEUROLOGICAL: Patient is alert and oriented x 3. Normal speech, normal gait. PSYCH: Normal mood, normal affect. SKIN: Warm, Dry, normal turgor, no rashes or lesions noted. Limitations: no limitations Course Vital Signs 04/06/21 04/06/21 00:43 03:37 Temperature 97.4 F L Pulse Rate 110 H 83 Respiratory 20 18 Rate Blood Pressure 121/81 104/91 O2 Sat by Pulse 96 95 Oximetry Medical Decision Making - Medical Decision Making Patient is a 45-year-old female here with left flank pain over the past couple days. Some nausea and vomiting as well. She has history of kidney stones, this is similar nature. She is well-known to this ER for same complaint. 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 Patient's labs are within normal limits, except for glucose of 500, urine shows hematuria but no signs of infection. Patient received fluids, insulin, and pain control, is resting appropriately. Her vitals are stable. Patient is stable for discharge. She'll follow up with urology. She will re- check her sugar at home. We discussed diabetes management and how important this is. She states she has an appointment on Sunday in 3 days. Return parameters were discussed with her and she verbalized understanding. Case discu ssed with Dr. Churchill. - Lab Data Result diagrams: 04/06/21 02:00 04/06/21 02:00 Lab Results 04/06/21 04/06/21 04/06/21 Range/Units 02:00 02:00 02:00 WBC 9.8 (3.8-10.6) k/uL RBC 4.89 (3.80-5.40) m/uL Hgb 14.8 (11.4-16.0) gm/dL Hct 44.4 (34.0-46.0) % MCV 90.6 (80.0-100.0) fL MCH 30.2 (25.0-35.0) pg MCHC 33.4 (31.0-37.0) g/dL RDW 12.5 (11.5-15.5) % Plt Count 248 (150-450) k/uL MPV 7.8 Neutrophils % 52 % Lymphocytes % 37 % Monocytes % 5 % Eosinophils % 4 % Basophils % 1 % Neutrophils # 5.1 (1.3-7.7) k/uL Lymphocytes # 3.7 (1.0-4.8) k/uL Monocytes # 0.5 (0-1.0) k/uL Eosinophils # 0.4 (0-0.7) k/uL Basophils # 0.1 (0-0.2) k/uL Sodium 134 L (137-145) mmol/L Potassium 4.2 (3.5-5.1) mmol/L Chloride 101 (98-107) mmol/L Carbon Dioxide 21 L (22-30) mmol/L Anion Gap 12 mmol/L BUN 10 (7-17) mg/dL Creatinine 0.60 (0.52-1.04) mg/dL Est GFR (CKD-EPI)AfAm >90 (>60 ml/min/1.73 sqM) Est GFR (CKD-EPI)NonAf >90 (>60 ml/min/1.73 sqM) Glucose 502 H* (74-99) mg/dL Calcium 9.5 (8.4-10.2) mg/dL Total Bilirubin 0.6 (0.2-1.3) mg/dL AST 57 H (14-36) U/L ALT 47 H (4-34) U/L Alkaline Phosphatase 118 (38-126) U/L Total Protein 6.9 (6.3-8.2) g/dL Albumin 4.2 (3.5-5.0) g/dL Urine Color Light Red Urine Appearance Cloudy H (Clear) Urine pH 6.0 (5.0-8.0) Ur Specific [place] 1.032 (1.001-1.035) Urine Protein Trace H (Negative) Urine Glucose (UA) 4+ H (Negative) Urine Ketones Negative (Negative) Urine Blood Large H (Negative) Urine Nitrite Negative (Negative) Urine Bilirubin Negative (Negative) Urine Urobilinogen <2.0 (<2.0) mg/dL Ur Leukocyte Esterase Negative (Negative) Urine RBC >182 H (0-5) /hpf Urine WBC <1 (0-5) /hpf Ur Squamous Epith Cells 3 (0-4) /hpf Urine Yeast ([place]) Rare H (None) /hpf Disposition Clinical Impression: Hematuria, Left flank pain, chronic, Hyperglycemia due to diabetes mellitus Disposition: HOME SELF-CARE Condition: Stable Instructions (If sedation given, give patient instructions): Flank Pain (ED) Additional Instructions: Please return to the Emergency Department if symptoms worsen or any other concerns. Please follow up with urology. Is patient prescribed a controlled substance at d/c from ED?: No Referrals: Elida Basurto MD [Primary Care Provider] - 1-2 days Luis Kincaid MD [STAFF PHYSICIAN] - 1-2 days Time of Disposition: 03:13
[2021-04-06 03:00] LABS: Basophils # (A) 0.1 k/uL (0-0.2); Basophils % (A) 1 %; Eosinophils # (A) 0.4 k/uL (0-0.7); Eosinophils % (A) 4 %; HCT 44.4 % (34.0-46.0); HGB 14.8 gm/dL (11.4-16.0); Lymphocytes # (A) 3.7 k/uL (1.0-4.8); Lymphocytes % (A) 37 %; MCH 30.2 pg (25.0-35.0); MCHC 33.4 g/dL (31.0-37.0); MCV 90.6 fL (80.0-100.0); Mean Platelet Volume 7.8; Monocytes # (A) 0.5 k/uL (0-1.0); Monocytes % (A) 5 %; Neutrophils # (A) 5.1 k/uL (1.3-7.7); Neutrophils % (A) 52 %; Platelet Count 248 k/uL (150-450); RBC 4.89 m/uL (3.80-5.40); RDW 12.5 % (11.5-15.5); WBC 9.8 k/uL (3.8-10.6)
[2021-04-06 03:07] LABS: Appearance,Urine Cloudy (Clear); Bilirubin,Urine Negative (Negative); Blood,Urine Large (Negative); Budding Yeast,Urine Rare /hpf; Color,Urine Light Red; Glucose,Urine (UA) 4+ (Negative); Ketones,Urine Negative (Negative); Leukocyte Esterase,Urine Negative (Negative); Nitrite,Urine Negative (Negative); Protein,Urine Trace (Negative); RBC,Urine >182 /hpf (0-5); Specific Gravity,Urine 1.032 (1.001-1.035); Squamous Epithelial Cell,Urine 3 /hpf (0-4); Urobilinogen,Urine <2.0 mg/dL (<2.0); WBC,Urine <1 /hpf (0-5)
[2021-04-06 03:14] LABS: ALT 47 U/L (4-34); AST 57 U/L (14-36); African American GFR (CKD) >90 (>60 ml/min/1.73 sqM); Albumin 4.2 g/dL (3.5-5.0); Alkaline Phosphatase 118 U/L (38-126); Anion Gap 12 mmol/L; Blood Urea Nitrogen 10 mg/dL (7-17); Calcium 9.5 mg/dL (8.4-10.2); Carbon Dioxide 21 mmol/L (22-30); Chloride 101 mmol/L (98-107); Non-African American GFR(CKD) >90 (>60 ml/min/1.73 sqM); Potassium 4.2 mmol/L (3.5-5.1); Sodium 134 mmol/L (137-145); Total Bilirubin 0.6 mg/dL (0.2-1.3); Total Protein 6.9 g/dL (6.3-8.2)
[2021-04-06 03:17] LABS: Glucose 502 mg/dL (74-99)
[2021-04-06] MEDS ORDERED: INSULIN ASPART (NovoLOG) 100 UNIT/ML VIAL SQ ONE (03:24)
[2021-04-06 03:39] VITALS: BP 104/91; PULSE 83; RESP 18
== END 2021-04-06 03:44 | disposition home or self-care (01) ==
LOC: EC 00:42
DX: G89.29 Other chronic pain (principal); R10.9 Unspecified abdominal pain; R31.9 Hematuria, unspecified; E11.65 Type 2 diabetes mellitus with hyperglycemia; I10 Essential (primary) hypertension; F31.9 Bipolar disorder, unspecified; F41.9 Anxiety disorder, unspecified; K21.9 Gastro-esophageal reflux disease without esophagitis; E78.5 Hyperlipidemia, unspecified; F17.200 Nicotine dependence, unspecified, uncomplicated; Z79.4 Long term (current) use of insulin; Z79.899 Other long term (current) drug therapy; Z88.0 Allergy status to penicillin; Z88.2 Allergy status to sulfonamides; Z90.49 Acquired absence of other specified parts of digestive tract; Z83.49 Family history of other endocrine, nutritional and metabolic diseases; Z83.3 Family history of diabetes mellitus; Z82.49 Family history of ischemic heart disease and other diseases of the circulatory system
CPT/HCPCS: 36415; 80053; 85025; 81001; 96374; 96375 ×3; 96361; 99284; J1200; J2405; J1170; J1885

== ENCOUNTER 2021-04-14 01:28 | Emergency (ER) | payer BC, OTHER ==
[2021-04-14] MEDS ORDERED: LORazepam 2 MG/ML INJ IV STA (02:06)
[2021-04-14] MEDS ORDERED: diphenhydrAMINE 50 MG/ML 1 ML VIAL IVP STA (02:06)
[2021-04-14] MEDS ORDERED: KETOROLAC 15 MG/ML 1 ML VIAL IVP STA (02:06)
[2021-04-14] MEDS ORDERED: HYDROmorphone 1 MG/ML 1 ML SYRINGE IVP STA (02:06)
[2021-04-14] MEDS ORDERED: PROCHLORPERAZINE INJ 10 MG/2 ML VIAL IVP STA (02:06)
[2021-04-14] MEDS ORDERED: PANTOPRAZOLE 40 MG/10 ML VIAL IVP STA (02:06)
[2021-04-14] MEDS ORDERED: SODIUM CHLORIDE 0.9% 1,000 ML IV STA (02:06)
[2021-04-14 02:10] LABS: Appearance,Urine Cloudy (Clear); Bacteria,Urine Occasional /hpf; Bilirubin,Urine Negative (Negative); Blood,Urine Large (Negative); Calcium Oxalate Crystals,Urine Occasional /hpf; Color,Urine Yellow; Glucose,Urine (UA) Negative (Negative); Ketones,Urine Trace (Negative); Leukocyte Esterase,Urine Trace (Negative); Mucus,Urine Rare /hpf; Nitrite,Urine Negative (Negative); Protein,Urine Trace (Negative); RBC,Urine >182 /hpf (0-5); Specific Gravity,Urine 1.022 (1.001-1.035); Squamous Epithelial Cell,Urine 8 /hpf (0-4); WBC,Urine 4 /hpf (0-5)
--- NOTE | 2021-04-14 02:35 | ED ---
Recheck HPI - General Chief Complaint: Abdominal Pain Stated Complaint: Kidney Stone Time Seen by Provider: 04/14/21 01:50 Source: patient Mode of arrival: ambulatory - Related Data Home Medications Medication Instructions Recorded Confirmed oxyCODONE-APAP 10-325MG [Percocet 1 tab PO Q6H PRN 08/29/17 04/21/20 10-325 mg] PARoxetine HCL [Paxil] 40 mg PO DAILY 03/12/18 04/21/20 Topiramate [Topamax] 100 mg PO BID 03/12/18 04/21/20 PARoxetine [Paxil] 20 mg PO DAILY 06/04/18 04/21/20 Atorvastatin [Lipitor] 40 mg PO DAILY 07/16/19 04/21/20 Insulin Glargine,Hum.rec.anlog 40 unit SQ HS 01/26/20 04/21/20 [Basaglar Kwikpen U-100] lisinopriL [Zestril] 10 mg PO DAILY 01/26/20 04/21/20 Montelukast [Singulair] 10 mg PO DAILY 02/09/20 04/21/20 ARIPiprazole [Abilify] 15 mg PO HS 04/04/20 04/21/20 Insulin Lispro [Admelog Solostar] 6 units SQ AC-TID 04/04/20 04/21/20 Mirtazapine 7.5 mg PO HS 04/04/20 04/21/20 OXcarbazepine [Trileptal] 300 mg PO BID 04/04/20 04/21/20 metFORMIN HCL [Glucophage] 1,000 mg PO BID 04/04/20 04/21/20 Loratadine 10 mg PO DAILY 04/21/20 04/21/20 Previous Rx's Medication Instructions Recorded SUMAtriptan succinate [Imitrex] 100 mg PO DAILY PRN tab 08/02/17 Ciprofloxacin HCl [Cipro] 500 mg PO Q12HR 1 Days #6 tab 05/27/20 Clindamycin Gel [Clindamycin 1 applic TOPICAL BID #1 tube 09/09/20 Phosphate 1% Gel] Fluconazole [Diflucan] 150 mg PO ONCE #1 tab 10/15/20 Ciprofloxacin HCl [Cipro] 500 mg PO Q12HR #14 tablet 12/11/20 Allergies Allergy/AdvReac Type Severity Reaction Status Date / Time bupropion HCl Allergy Rash/Hives Verified 04/14/21 01:33 [From Wellbutrin] divalproex sodium Allergy Unknown Verified 04/14/21 01:33 [From Depakote] fentanyl Allergy Swelling Verified 04/14/21 01:33 Iodinated Contrast Media Allergy Anaphylaxis Verified 04/14/21 01:33 [Iodinated Contrast Media - IV Dye] orange juice [[place]] Allergy Rash/Hives Verified 04/14/21 01:33 Sulfa (Sulfonamide Allergy Rash/Hives Verified 04/14/21 01:33 Antibiotics) Penicillins AdvReac Nausea & Verified 04/14/21 01:33 Vomiting Review of Systems ROS Statement: Those systems with pertinent positive or pertinent negative responses have been documented in the HPI. ROS Other: All systems not noted in ROS Statement are negative. 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 History of Any Multi-Drug Resistant Organisms: ESBL Date of last positivie culture/infection: 05/14/17 MDRO Source:: ESBL URINE, Past Surgical History: Bladder Surgery, Section, Cholecystectomy, Hysterectomy, Orthopedic Surgery, Tubal Ligation Additional Past Surgical History / Comment(s): R ovarian cystectomy, laparoscopic surgery for L ovary that had attached to the bowel, D&C, numerous lithotripsies, nephroscopies, cystoscopies and stents to ureters-none in place at this time, L robotic pyeloplasty with post op infection around kidney which then required a picc line/later removed (pt states was not MRSA), L rotator cuff repair, L wrist tendon surgery, colonoscopy Past Anesthesia/Blood Transfusion Reactions: Family History of Problems w/ Anesthesia Additional Past Anesthesia/Blood Transfusion Reaction / Comment(s): dad-hard time waking up due to enzyme problems in liver Past Psychological History: ADD/ADHD, Anxiety, Bipolar, Depression, PTSD Smoking Status: Current every day smoker Past Alcohol Use History: None Reported Past Drug Use History: None Reported - Past Family History Brother(s) Family Medical History: Cancer Additional Family Medical History / Comment(s): testicular Father Family Medical History: Coronary Artery Disease (CAD), CVA/TIA, Diabetes Mellitus, Renal Disease Additional Family Medical History / Comment(s): GLAUCOMA,NEUROPATHY HAD TRIPLE CABG, at 56yrs from renal disease. Mother Family Medical History: Hyperlipidemia Additional Family Medical History / Comment(s): DDD, HAD 3 vessel CABG AGE 54. Course Vital Signs 04/14/21 01:31 Temperature 98 F Pulse Rate 99 Respiratory 19 Rate Blood Pressure 115/73 O2 Sat by Pulse 98 Oximetry Medical Decision Making - Lab Data Result diagrams: 04/14/21 02:29 04/14/21 02:29 Lab Results 04/14/21 04/14/21 04/14/21 Range/Units 01:36 02:29 02:29 WBC 12.2 H (3.8-10.6) k/uL RBC 5.03 (3.80-5.40) m/uL Hgb 14.9 (11.4-16.0) gm/dL Hct 45.0 (34.0-46.0) % MCV 89.5 (80.0-100.0) fL MCH 29.7 (25.0-35.0) pg MCHC 33.2 (31.0-37.0) g/dL RDW 12.4 (11.5-15.5) % Plt Count 262 (150-450) k/uL MPV 7.9 Neutrophils % 58 % Lymphocytes % 33 % Monocytes % 5 % Eosinophils % 2 % Basophils % 1 % Neutrophils # 7.0 (1.3-7.7) k/uL Lymphocytes # 4.1 (1.0-4.8) k/uL Monocytes # 0.6 (0-1.0) k/uL Eosinophils # 0.3 (0-0.7) k/uL Basophils # 0.1 (0-0.2) k/uL Sodium 136 L (137-145) mmol/L Potassium 3.7 (3.5-5.1) mmol/L Chloride 103 (98-107) mmol/L Carbon Dioxide 20 L (22-30) mmol/L Anion Gap 13 mmol/L BUN 10 (7-17) mg/dL Creatinine 0.64 (0.52-1.04) mg/dL Est GFR (CKD-EPI)AfAm >90 (>60 ml/min/1.73 sqM) Est GFR (CKD-EPI)NonAf >90 (>60 ml/min/1.73 sqM) Glucose 208 H (74-99) mg/dL Calcium 10.0 (8.4-10.2) mg/dL Total Bilirubin 0.6 (0.2-1.3) mg/dL AST 51 H (14-36) U/L ALT 54 H (4-34) U/L Alkaline Phosphatase 102 (38-126) U/L Total Protein 7.2 (6.3-8.2) g/dL Albumin 4.4 (3.5-5.0) g/dL Lipase 183 (23-300) U/L Urine Color Yellow Urine Appearance Cloudy H (Clear) Urine pH 6.0 (5.0-8.0) Ur Specific [place] 1.022 (1.001-1.035) Urine Protein Trace H (Negative) Urine Glucose (UA) Negative (Negative) Urine Ketones Trace H (Negative) Urine Blood Large H (Negative) Urine Nitrite Negative (Negative) Urine Bilirubin Negative (Negative) Urine Urobilinogen 2.0 (<2.0) mg/dL Ur Leukocyte Esterase Trace H (Negative) Urine RBC >182 H (0-5) /hpf Urine WBC 4 (0-5) /hpf Ur Squamous Epith Cells 8 H (0-4) /hpf Calcium Oxalate Crystal Occasional H (None) /hpf Urine Bacteria Occasional H (None) /hpf Urine Mucus Rare H (None) /hpf Disposition Clinical Impression: Abdominal pain, Nausea and vomiting Disposition: HOME SELF-CARE Condition: Good Instructions (If sedation given, give patient instructions): Abdominal Pain (ED) Is patient prescribed a controlled substance at d/c from ED?: No Referrals: Elida Basurto MD [Primary Care Provider] - 1-2 days
[2021-04-14 02:59] LABS: Basophils # (A) 0.1 k/uL (0-0.2); Basophils % (A) 1 %; Eosinophils # (A) 0.3 k/uL (0-0.7); Eosinophils % (A) 2 %; HGB 14.9 gm/dL (11.4-16.0); Lymphocytes # (A) 4.1 k/uL (1.0-4.8); Lymphocytes % (A) 33 %; MCH 29.7 pg (25.0-35.0); MCHC 33.2 g/dL (31.0-37.0); MCV 89.5 fL (80.0-100.0); Mean Platelet Volume 7.9; Monocytes # (A) 0.6 k/uL (0-1.0); Monocytes % (A) 5 %; Neutrophils % (A) 58 %; Platelet Count 262 k/uL (150-450); RBC 5.03 m/uL (3.80-5.40); RDW 12.4 % (11.5-15.5); WBC 12.2 k/uL (3.8-10.6)
--- NOTE | 2021-04-14 03:16 | XR ---
EXAMINATION TYPE: XR KUB DATE OF EXAM: 04/14/2021 COMPARISON: 03/21/2021 HISTORY: Abdominal pain TECHNIQUE: 2 views upright FINDINGS: There is no sign of intestinal obstruction or pneumoperitoneum. Fecal pattern is normal. Th ere are clips from cholecystectomy. Lung bases are clear. There is no evidence of a mass. There are n o calcifications over the kidneys. IMPRESSION: Nonacute abdomen. No change.
[2021-04-14 03:19] LABS: ALT 54 U/L (4-34); AST 51 U/L (14-36); African American GFR (CKD) >90 (>60 ml/min/1.73 sqM); Albumin 4.4 g/dL (3.5-5.0); Alkaline Phosphatase 102 U/L (38-126); Anion Gap 13 mmol/L; Blood Urea Nitrogen 10 mg/dL (7-17); Carbon Dioxide 20 mmol/L (22-30); Chloride 103 mmol/L (98-107); Glucose 208 mg/dL (74-99); Lipase 183 U/L (23-300); Non-African American GFR(CKD) >90 (>60 ml/min/1.73 sqM); Potassium 3.7 mmol/L (3.5-5.1); Sodium 136 mmol/L (137-145); Total Bilirubin 0.6 mg/dL (0.2-1.3); Total Protein 7.2 g/dL (6.3-8.2)
[2021-04-14 05:14] VITALS: BP 114/72; PULSE 76; RESP 22; TEMP 97.7
== END 2021-04-14 05:14 | disposition home or self-care (01) ==
LOC: EC 01:28
DX: R10.9 Unspecified abdominal pain (principal); R11.2 Nausea with vomiting, unspecified; E11.9 Type 2 diabetes mellitus without complications; K21.9 Gastro-esophageal reflux disease without esophagitis; E78.5 Hyperlipidemia, unspecified; I10 Essential (primary) hypertension; F90.9 Attention-deficit hyperactivity disorder, unspecified type; F41.9 Anxiety disorder, unspecified; F31.9 Bipolar disorder, unspecified; F43.12 Post-traumatic stress disorder, chronic; F17.200 Nicotine dependence, unspecified, uncomplicated; Z79.4 Long term (current) use of insulin; Z88.0 Allergy status to penicillin; Z88.1 Allergy status to other antibiotic agents; Z88.2 Allergy status to sulfonamides; Z87.440 Personal history of urinary (tract) infections; Z90.49 Acquired absence of other specified parts of digestive tract; Z90.710 Acquired absence of both cervix and uterus; Z98.51 Tubal ligation status
CPT/HCPCS: 99284; 96374; 96375 ×5; 96361; 36415; 80053; 83690; 85025; 81001; 74018; J2060; J1200; J0780; J1170; J1885; C9113

== ENCOUNTER 2021-04-24 04:27 | Emergency (ER) | payer BC, OTHER ==
[2021-04-24 04:38] VITALS: TEMP 97.4
--- NOTE | 2021-04-24 04:57 | ED ---
Recheck HPI - General Chief Complaint: Urogenital Stated Complaint: Abd Pain Time Seen by Provider: 04/24/21 04:28 Source: patient Mode of arrival: ambulatory Limitations: no limitations - Related Data Home Medications Medication Instructions Recorded Confirmed oxyCODONE-APAP 10-325MG [Percocet 1 tab PO Q6H PRN 08/29/17 04/21/20 10-325 mg] PARoxetine HCL [Paxil] 40 mg PO DAILY 03/12/18 04/21/20 Topiramate [Topamax] 100 mg PO BID 03/12/18 04/21/20 PARoxetine [Paxil] 20 mg PO DAILY 06/04/18 04/21/20 Atorvastatin [Lipitor] 40 mg PO DAILY 07/16/19 04/21/20 Insulin Glargine,Hum.rec.anlog 40 unit SQ HS 01/26/20 04/21/20 [Basaglar Kwikpen U-100] lisinopriL [Zestril] 10 mg PO DAILY 01/26/20 04/21/20 Montelukast [Singulair] 10 mg PO DAILY 02/09/20 04/21/20 ARIPiprazole [Abilify] 15 mg PO HS 04/04/20 04/21/20 Insulin Lispro [Admelog Solostar] 6 units SQ AC-TID 04/04/20 04/21/20 Mirtazapine 7.5 mg PO HS 04/04/20 04/21/20 OXcarbazepine [Trileptal] 300 mg PO BID 04/04/20 04/21/20 metFORMIN HCL [Glucophage] 1,000 mg PO BID 04/04/20 04/21/20 Loratadine 10 mg PO DAILY 04/21/20 04/21/20 Previous Rx's Medication Instructions Recorded SUMAtriptan succinate [Imitrex] 100 mg PO DAILY PRN tab 08/02/17 Ciprofloxacin HCl [Cipro] 500 mg PO Q12HR 1 Days #6 tab 05/27/20 Clindamycin Gel [Clindamycin 1 applic TOPICAL BID #1 tube 09/09/20 Phosphate 1% Gel] Fluconazole [Diflucan] 150 mg PO ONCE #1 tab 10/15/20 Ciprofloxacin HCl [Cipro] 500 mg PO Q12HR #14 tablet 12/11/20 Prochlorperazine [Compazine] 10 mg PO Q8H #30 tab 04/14/21 Allergies Allergy/AdvReac Type Severity Reaction Status Date / Time bupropion HCl Allergy Rash/Hives Verified 04/24/21 04:38 [From Wellbutrin] divalproex sodium Allergy Unknown Verified 04/24/21 04:38 [From Depakote] fentanyl Allergy Swelling Verified 04/24/21 04:38 Iodinated Contrast Media Allergy Anaphylaxis Verified 04/24/21 04:38 [Iodinated Contrast Media - IV Dye] orange juice [[place]] Allergy Rash/Hives Verified 04/24/21 04:38 Sulfa (Sulfonamide Allergy Rash/Hives Verified 04/24/21 04:38 Antibiotics) Penicillins AdvReac Nausea & Verified 04/24/21 04:38 Vomiting Review of Systems ROS Statement: Those systems with pertinent positive or pertinent negative responses have been documented in the HPI. ROS Other: All systems not noted in ROS Statement are negative. 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 History of Any Multi-Drug Resistant Organisms: ESBL Date of last positivie culture/infection: 05/14/17 MDRO Source:: ESBL URINE, Past Surgical History: Bladder Surgery, Section, Cholecystectomy, Hysterectomy, Orthopedic Surgery, Tubal Ligation Additional Past Surgical History / Comment(s): R ovarian cystectomy, laparoscopic surgery for L ovary that had attached to the bowel, D&C, numerous lithotripsies, nephroscopies, cystoscopies and stents to ureters-none in place at this time, L robotic pyeloplasty with post op infection around kidney which then required a picc line/later removed (pt states was not MRSA), L rotator cuff repair, L wrist tendon surgery, colonoscopy Past Anesthesia/Blood Transfusion Reactions: Family History of Problems w/ Anesthesia Additional Past Anesthesia/Blood Transfusion Reaction / Comment(s): dad-hard time waking up due to enzyme problems in liver Past Psychological History: ADD/ADHD, Anxiety, Bipolar, Depression, PTSD Smoking Status: Current every day smoker Past Alcohol Use History: None Reported Past Drug Use History: None Reported - Past Family History Brother(s) Family Medical History: Cancer Additional Family Medical History / Comment(s): testicular Father Family Medical History: Coronary Artery Disease (CAD), CVA/TIA, Diabetes Mellitus, Renal Disease Additional Family Medical History / Comment(s): GLAUCOMA,NEUROPATHY HAD TRIPLE CABG, at 56yrs from renal disease. Mother Family Medical History: Hyperlipidemia Additional Family Medical History / Comment(s): DDD, HAD 3 vessel CABG AGE 54. General Exam Limitations: no limitations Course Vital Signs 04/24/21 04:35 Temperature 97.4 F L Pulse Rate 109 H Respiratory 16 Rate Blood Pressure 123/79 O2 Sat by Pulse 96 Oximetry Disposition Clinical Impression: Left flank pain, Renal colic on left side Disposition: HOME SELF-CARE Condition: Good Instructions (If sedation given, give patient instructions): Abdominal Pain (ED) Is patient prescribed a controlled substance at d/c from ED?: No Referrals: Elida Basurto MD [Primary Care Provider] - 1-2 days
[2021-04-24] MEDS ORDERED: KETOROLAC 15 MG/ML 1 ML VIAL IVP STA (05:00)
[2021-04-24] MEDS ORDERED: SODIUM CHLORIDE 0.9% 1,000 ML IV STA (05:00)
[2021-04-24] MEDS ORDERED: HYDROmorphone 1 MG/ML 1 ML SYRINGE IVP STA (05:00)
[2021-04-24] MEDS ORDERED: diphenhydrAMINE 50 MG/ML 1 ML VIAL IVP STA (05:00)
[2021-04-24] MEDS ORDERED: PROCHLORPERAZINE INJ 10 MG/2 ML VIAL IVP STA (05:00)
[2021-04-24 06:22] LABS: Basophils # (A) 0.1 k/uL (0-0.2); Basophils % (A) 1 %; Eosinophils # (A) 0.2 k/uL (0-0.7); Eosinophils % (A) 2 %; HCT 42.2 % (34.0-46.0); HGB 14.2 gm/dL (11.4-16.0); Lymphocytes # (A) 3.6 k/uL (1.0-4.8); Lymphocytes % (A) 31 %; MCH 29.6 pg (25.0-35.0); MCHC 33.7 g/dL (31.0-37.0); Mean Platelet Volume 7.7; Monocytes # (A) 0.7 k/uL (0-1.0); Monocytes % (A) 6 %; Neutrophils % (A) 60 %; Platelet Count 309 k/uL (150-450); RBC 4.79 m/uL (3.80-5.40); RDW 12.3 % (11.5-15.5); WBC 11.7 k/uL (3.8-10.6)
[2021-04-24 06:31] LABS: Appearance,Urine Clear (Clear); Bacteria,Urine Rare /hpf; Bilirubin,Urine Negative (Negative); Blood,Urine Large (Negative); Color,Urine Yellow; Glucose,Urine (UA) 4+ (Negative); Ketones,Urine Trace (Negative); Leukocyte Esterase,Urine Negative (Negative); Nitrite,Urine Negative (Negative); Protein,Urine Trace (Negative); RBC,Urine >182 /hpf (0-5); Specific Gravity,Urine 1.032 (1.001-1.035); Squamous Epithelial Cell,Urine 1 /hpf (0-4); Urobilinogen,Urine <2.0 mg/dL (<2.0); WBC,Urine 3 /hpf (0-5)
[2021-04-24 06:33] LABS: ALT 47 U/L (4-34); AST 46 U/L (14-36); African American GFR (CKD) >90 (>60 ml/min/1.73 sqM); Albumin 4.3 g/dL (3.5-5.0); Alkaline Phosphatase 114 U/L (38-126); Amylase 47 U/L (30-110); Anion Gap 14 mmol/L; Blood Urea Nitrogen 11 mg/dL (7-17); Calcium 9.9 mg/dL (8.4-10.2); Carbon Dioxide 18 mmol/L (22-30); Chloride 103 mmol/L (98-107); Glucose 330 mg/dL (74-99); Lipase 294 U/L (23-300); Non-African American GFR(CKD) >90 (>60 ml/min/1.73 sqM); Sodium 135 mmol/L (137-145); Total Protein 7.3 g/dL (6.3-8.2)
[2021-04-24 06:55] VITALS: RESP 18
[2021-04-24 06:56] VITALS: BP 101/69; PULSE 71
== END 2021-04-24 06:54 | disposition home or self-care (01) ==
LOC: EC 04:27
DX: N23 Unspecified renal colic (principal); E11.9 Type 2 diabetes mellitus without complications; K21.9 Gastro-esophageal reflux disease without esophagitis; E78.5 Hyperlipidemia, unspecified; I10 Essential (primary) hypertension; G43.909 Migraine, unspecified, not intractable, without status migrainosus; F43.10 Post-traumatic stress disorder, unspecified; F90.9 Attention-deficit hyperactivity disorder, unspecified type; F31.9 Bipolar disorder, unspecified; F41.9 Anxiety disorder, unspecified; F17.200 Nicotine dependence, unspecified, uncomplicated
CPT/HCPCS: 36415; 80053; 82150; 83690; 85025; 81001; 99284; 96374; 96375 ×3; 96361; J1200; J0780; J1170; J1885

== ENCOUNTER 2021-04-25 22:40 | Emergency (ER) | payer BC, OTHER ==
[2021-04-25 22:52] VITALS: RESP 18
[2021-04-25] MEDS ORDERED: diphenhydrAMINE 50 MG/ML 1 ML VIAL IVP STA (23:40)
[2021-04-25] MEDS ORDERED: KETOROLAC 15 MG/ML 1 ML VIAL IVP STA (23:40)
[2021-04-25] MEDS ORDERED: SODIUM CHLORIDE 0.9% 1,000 ML IV STA ×2 (23:40)
[2021-04-25] MEDS ORDERED: HYDROmorphone 1 MG/ML 1 ML SYRINGE IVP STA (23:40)
[2021-04-25] MEDS ORDERED: PROCHLORPERAZINE INJ 10 MG/2 ML VIAL IVP STA (23:40)
[2021-04-25 23:59] LABS: Basophils # (A) 0.1 k/uL (0-0.2); Basophils % (A) 1 %; Eosinophils # (A) 0.4 k/uL (0-0.7); Eosinophils % (A) 3 %; HCT 43.8 % (34.0-46.0); Lymphocytes # (A) 4.6 k/uL (1.0-4.8); Lymphocytes % (A) 36 %; MCH 30.7 pg (25.0-35.0); MCHC 34.4 g/dL (31.0-37.0); MCV 89.4 fL (80.0-100.0); Mean Platelet Volume 7.6; Monocytes # (A) 0.4 k/uL (0-1.0); Monocytes % (A) 3 %; Neutrophils # (A) 7.2 k/uL (1.3-7.7); Neutrophils % (A) 56 %; Platelet Count 299 k/uL (150-450); RDW 12.3 % (11.5-15.5); WBC 12.8 k/uL (3.8-10.6)
[2021-04-26 00:10] LABS: ALT 48 U/L (4-34); AST 60 U/L (14-36); African American GFR (CKD) >90 (>60 ml/min/1.73 sqM); Albumin 4.5 g/dL (3.5-5.0); Alkaline Phosphatase 109 U/L (38-126); Amylase 60 U/L (30-110); Anion Gap 12 mmol/L; Blood Urea Nitrogen 12 mg/dL (7-17); Calcium 9.6 mg/dL (8.4-10.2); Carbon Dioxide 18 mmol/L (22-30); Chloride 106 mmol/L (98-107); Glucose 290 mg/dL (74-99); Lipase 314 U/L (23-300); Non-African American GFR(CKD) >90 (>60 ml/min/1.73 sqM); Potassium 3.9 mmol/L (3.5-5.1); Sodium 136 mmol/L (137-145); Total Bilirubin 0.6 mg/dL (0.2-1.3); Total Protein 7.5 g/dL (6.3-8.2)
--- NOTE | 2021-04-26 00:11 | ED ---
Recheck HPI - General Chief Complaint: Abdominal Pain Stated Complaint: Kidney Stones Time Seen by Provider: 04/25/21 23:38 Source: patient, RN notes reviewed, old records reviewed Mode of arrival: ambulatory Limitations: no limitations - History of Present Illness Initial Comments: This Is a 45-year-old female well-known tremors arms. Patient has procedure scheduled for this Sunday patient was here recently and presents today again for recurrent nausea vomiting which is intractable unable to take pain medicine some symptoms of withdrawal and pain. Patient has severe left flank pain which she relates renal colic history of renal colic and severe history of kidney stones. -: days(s) Returns Today for: persistent/worsening pain related to initial visit Symptoms Since Prior Visit: worsening pain Context: ran out of medication, other (Unable to keep pain medication down secondary to nausea and vomiting) Associated Symptoms: abdominal pain Treatments Prior to Arrival: Given Pain Meds on - Related Data Home Medications Medication Instructions Recorded Confirmed oxyCODONE-APAP 10-325MG [Percocet 1 tab PO Q6H PRN 08/29/17 04/21/20 10-325 mg] PARoxetine HCL [Paxil] 40 mg PO DAILY 03/12/18 04/21/20 Topiramate [Topamax] 100 mg PO BID 03/12/18 04/21/20 PARoxetine [Paxil] 20 mg PO DAILY 06/04/18 04/21/20 Atorvastatin [Lipitor] 40 mg PO DAILY 07/16/19 04/21/20 Insulin Glargine,Hum.rec.anlog 40 unit SQ HS 01/26/20 04/21/20 [Basaglar Kwikpen U-100] lisinopriL [Zestril] 10 mg PO DAILY 01/26/20 04/21/20 Montelukast [Singulair] 10 mg PO DAILY 02/09/20 04/21/20 ARIPiprazole [Abilify] 15 mg PO HS 04/04/20 04/21/20 Insulin Lispro [Admelog Solostar] 6 units SQ AC-TID 04/04/20 04/21/20 Mirtazapine 7.5 mg PO HS 04/04/20 04/21/20 OXcarbazepine [Trileptal] 300 mg PO BID 04/04/20 04/21/20 metFORMIN HCL [Glucophage] 1,000 mg PO BID 04/04/20 04/21/20 Loratadine 10 mg PO DAILY 04/21/20 04/21/20 Previous Rx's Medication Instructions Recorded SUMAtriptan succinate [Imitrex] 100 mg PO DAILY PRN tab 08/02/17 Ciprofloxacin HCl [Cipro] 500 mg PO Q12HR 1 Days #6 tab 05/27/20 Clindamycin Gel [Clindamycin 1 applic TOPICAL BID #1 tube 09/09/20 Phosphate 1% Gel] Fluconazole [Diflucan] 150 mg PO ONCE #1 tab 10/15/20 Ciprofloxacin HCl [Cipro] 500 mg PO Q12HR #14 tablet 12/11/20 Prochlorperazine [Compazine] 10 mg PO Q8H #30 tab 04/14/21 Allergies Allergy/AdvReac Type Severity Reaction Status Date / Time bupropion HCl Allergy Rash/Hives Verified 04/25/21 22:52 [From Wellbutrin] divalproex sodium Allergy Unknown Verified 04/25/21 22:52 [From Depakote] fentanyl Allergy Swelling Verified 04/25/21 22:52 Iodinated Contrast Media Allergy Anaphylaxis Verified 04/25/21 22:52 [Iodinated Contrast Media - IV Dye] orange juice [[place]] Allergy Rash/Hives Verified 04/25/21 22:52 Sulfa (Sulfonamide Allergy Rash/Hives Verified 04/25/21 22:52 Antibiotics) Penicillins AdvReac Nausea & Verified 04/25/21 22:52 Vomiting Review of Systems ROS Statement: Those systems with pertinent positive or pertinent negative responses have been documented in the HPI. ROS Other: All systems not noted in ROS Statement are negative. 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 History of Any Multi-Drug Resistant Organisms: ESBL Date of last positivie culture/infection: 05/14/17 MDRO Source:: ESBL URINE, Past Surgical History: Bladder Surgery, Section, Cholecystectomy, Hysterectomy, Orthopedic Surgery, Tubal Ligation Additional Past Surgical History / Comment(s): R ovarian cystectomy, laparoscopic surgery for L ovary that had attached to the bowel, D&C, numerous lithotripsies, nephroscopies, cystoscopies and stents to ureters-none in place at this time, L robotic pyeloplasty with post op infection around kidney which then required a picc line/later removed (pt states was not MRSA), L rotator cuff repair, L wrist tendon surgery, colonoscopy Past Anesthesia/Blood Transfusion Reactions: Family History of Problems w/ Anesthesia Additional Past Anesthesia/Blood Transfusion Reaction / Comment(s): dad-hard time waking up due to enzyme problems in liver Past Psychological History: ADD/ADHD, Anxiety, Bipolar, Depression, PTSD Smoking Status: Current every day smoker Past Alcohol Use History: None Reported Past Drug Use History: None Reported - Past Family History Brother(s) Family Medical History: Cancer Additional Family Medical History / Comment(s): testicular Father Family Medical History: Coronary Artery Disease (CAD), CVA/TIA, Diabetes Mellitus, Renal Disease Additional Family Medical History / Comment(s): GLAUCOMA,NEUROPATHY HAD TRIPLE CABG, at 56yrs from renal disease. Mother Family Medical History: Hyperlipidemia Additional Family Medical History / Comment(s): DDD, HAD 3 vessel CABG AGE 54. General Exam Limitations: no limitations General appearance: alert, in no apparent distress Head exam: Present: atraumatic, normocephalic, normal inspection Eye exam: Present: normal appearance, PERRL, EOMI. Absent: scleral icterus, conjunctival injection, periorbital swelling ENT exam: Present: normal exam, mucous membranes moist Neck exam: Present: normal inspection. Absent: tenderness, meningismus, lymphadenopathy Respiratory exam: Present: normal lung sounds bilaterally. Absent: respiratory distress, wheezes, rales, rhonchi, stridor Cardiovascular Exam: Present: regular rate, normal rhythm, normal heart sounds. Absent: systolic murmur, diastolic murmur, rubs, gallop, clicks GI/Abdominal exam: Present: soft, normal bowel sounds. Absent: distended, tenderness, guarding, rebound, rigid Extremities exam: Present: normal inspection, full ROM, normal capillary refill. Absent: tenderness, pedal edema, joint swelling, calf tenderness Back exam: Present: normal inspection Neurological exam: Present: alert, oriented X3, CN II-XII intact Psychiatric exam: Present: normal affect, normal mood Skin exam: Present: warm, dry, intact, normal color. Absent: rash Course Vital Signs 04/25/21 22:50 Temperature 97.9 F Pulse Rate 91 Respiratory 18 Rate Blood Pressure 113/76 O2 Sat by Pulse 99 Oximetry - Reevaluation(s) Reevaluation #1: 04/26/21 00:46 Medical records reviewed Reevaluation #2: 04/26/21 00:46 Symptoms are improved here in the ER Reevaluation #3: 04/26/21 00:46 Patient feels good for discharge home, does not want to stay in the hospital Medical Decision Making - Medical Decision Making 5 female with intractable pain. Patient did achieve pain control here in the ER and can be discharged - Lab Data Result diagrams: 04/25/21 23:54 04/25/21 23:54 Lab Results 04/25/21 04/25/21 Range/Units 23:54 23:54 WBC 12.8 H (3.8-10.6) k/uL RBC 4.90 (3.80-5.40) m/uL Hgb 15.0 (11.4-16.0) gm/dL Hct 43.8 (34.0-46.0) % MCV 89.4 (80.0-100.0) fL MCH 30.7 (25.0-35.0) pg MCHC 34.4 (31.0-37.0) g/dL RDW 12.3 (11.5-15.5) % Plt Count 299 (150-450) k/uL MPV 7.6 Neutrophils % 56 % Lymphocytes % 36 % Monocytes % 3 % Eosinophils % 3 % Basophils % 1 % Neutrophils # 7.2 (1.3-7.7) k/uL Lymphocytes # 4.6 (1.0-4.8) k/uL Monocytes # 0.4 (0-1.0) k/uL Eosinophils # 0.4 (0-0.7) k/uL Basophils # 0.1 (0-0.2) k/uL Sodium 136 L (137-145) mmol/L Potassium 3.9 (3.5-5.1) mmol/L Chloride 106 (98-107) mmol/L Carbon Dioxide 18 L (22-30) mmol/L Anion Gap 12 mmol/L BUN 12 (7-17) mg/dL Creatinine 0.58 (0.52-1.04) mg/dL Est GFR (CKD-EPI)AfAm >90 (>60 ml/min/1.73 sqM) Est GFR (CKD-EPI)NonAf >90 (>60 ml/min/1.73 sqM) Glucose 290 H (74-99) mg/dL Calcium 9.6 (8.4-10.2) mg/dL Total Bilirubin 0.6 (0.2-1.3) mg/dL AST 60 H (14-36) U/L ALT 48 H (4-34) U/L Alkaline Phosphatase 109 (38-126) U/L Total Protein 7.5 (6.3-8.2) g/dL Albumin 4.5 (3.5-5.0) g/dL Amylase 60 (30-110) U/L Lipase 314 H (23-300) U/L Disposition Clinical Impression: Left flank pain, chronic Disposition: HOME SELF-CARE Condition: Good Instructions (If sedation given, give patient instructions): Renal Colic (ED) Is patient prescribed a controlled substance at d/c from ED?: No Referrals: Elida Basurto MD [Primary Care Provider] - 1-2 days
[2021-04-26 00:47] LABS: Appearance,Urine Cloudy (Clear); Bacteria,Urine Rare /hpf; Bilirubin,Urine Negative (Negative); Blood,Urine Moderate (Negative); Calcium Oxalate Crystals,Urine Many /hpf; Color,Urine Light Red; Glucose,Urine (UA) 1+ (Negative); Ketones,Urine Negative (Negative); Leukocyte Esterase,Urine Trace (Negative); Mucus,Urine Rare /hpf; Nitrite,Urine Negative (Negative); PH, Urine 5.5 (5.0-8.0); Protein,Urine Trace (Negative); RBC,Urine >182 /hpf (0-5); Specific Gravity,Urine 1.023 (1.001-1.035); Squamous Epithelial Cell,Urine 9 /hpf (0-4); Urobilinogen,Urine <2.0 mg/dL (<2.0); WBC,Urine 8 /hpf (0-5)
[2021-04-26 02:02] VITALS: BP 109/77; PULSE 86; TEMP 97.5
== END 2021-04-26 02:02 | disposition home or self-care (01) ==
LOC: EC 22:40
DX: G89.29 Other chronic pain (principal); R10.9 Unspecified abdominal pain; E11.9 Type 2 diabetes mellitus without complications; I10 Essential (primary) hypertension; K21.9 Gastro-esophageal reflux disease without esophagitis; E78.5 Hyperlipidemia, unspecified; F31.9 Bipolar disorder, unspecified; F41.9 Anxiety disorder, unspecified; F17.200 Nicotine dependence, unspecified, uncomplicated; Z79.4 Long term (current) use of insulin; Z79.899 Other long term (current) drug therapy; Z88.0 Allergy status to penicillin; Z88.2 Allergy status to sulfonamides; Z90.49 Acquired absence of other specified parts of digestive tract; Z83.49 Family history of other endocrine, nutritional and metabolic diseases; Z83.3 Family history of diabetes mellitus; Z82.49 Family history of ischemic heart disease and other diseases of the circulatory system
CPT/HCPCS: 36415; 80053; 82150; 83690; 85025; 81001; 99284; 96374; 96375 ×4; 96361 ×2; J1200; J0780; J1170; J1885; J1790

== ENCOUNTER 2021-05-18 01:14 | Emergency (ER) | payer BC, OTHER ==
[2021-05-18 01:18] VITALS: BP 126/86; PULSE 103; RESP 20; TEMP 97.6
[2021-05-18] MEDS ORDERED: KETOROLAC 30 MG/ML 1 ML VIAL IVP STA (02:08)
[2021-05-18] MEDS ORDERED: ONDANSETRON 4 MG/2 ML VIAL IVP STA (02:08)
--- NOTE | 2021-05-18 02:16 | ED ---
General Adult HPI - General Chief complaint: Back Pain/Injury Stated complaint: Kidney Stones Time Seen by Provider: 05/18/21 01:46 Source: patient Mode of arrival: ambulatory Limitations: no limitations - History of Present Illness Initial comments: Leilani is a 45-year-old female very well-known to the emergency department for her frequent visits for kidney stones. She presents today stating that she's had left-sided flank pain since Sunday. She reports that she was supposed to have an exploratory surgery by urologist Dr. Lee but had to be canceled due to an axillary abscess which she is having followed up with the general surgeon on [facility]. - Related Data Home Medications Medication Instructions Recorded Confirmed oxyCODONE-APAP 10-325MG [Percocet 1 tab PO Q6H PRN 08/29/17 04/21/20 10-325 mg] PARoxetine HCL [Paxil] 40 mg PO DAILY 03/12/18 04/21/20 Topiramate [Topamax] 100 mg PO BID 03/12/18 04/21/20 PARoxetine [Paxil] 20 mg PO DAILY 06/04/18 04/21/20 Atorvastatin [Lipitor] 40 mg PO DAILY 07/16/19 04/21/20 Insulin Glargine,Hum.rec.anlog 40 unit SQ HS 01/26/20 04/21/20 [Basaglar Kwikpen U-100] lisinopriL [Zestril] 10 mg PO DAILY 01/26/20 04/21/20 Montelukast [Singulair] 10 mg PO DAILY 02/09/20 04/21/20 ARIPiprazole [Abilify] 15 mg PO HS 04/04/20 04/21/20 Insulin Lispro [Admelog Solostar] 6 units SQ AC-TID 04/04/20 04/21/20 Mirtazapine 7.5 mg PO HS 04/04/20 04/21/20 OXcarbazepine [Trileptal] 300 mg PO BID 04/04/20 04/21/20 metFORMIN HCL [Glucophage] 1,000 mg PO BID 04/04/20 04/21/20 Loratadine 10 mg PO DAILY 04/21/20 04/21/20 Previous Rx's Medication Instructions Recorded SUMAtriptan succinate [Imitrex] 100 mg PO DAILY PRN tab 08/02/17 Ciprofloxacin HCl [Cipro] 500 mg PO Q12HR 1 Days #6 tab 05/27/20 Clindamycin Gel [Clindamycin 1 applic TOPICAL BID #1 tube 09/09/20 Phosphate 1% Gel] Fluconazole [Diflucan] 150 mg PO ONCE #1 tab 10/15/20 Ciprofloxacin HCl [Cipro] 500 mg PO Q12HR #14 tablet 12/11/20 Prochlorperazine [Compazine] 10 mg PO Q8H #30 tab 04/14/21 Allergies Allergy/AdvReac Type Severity Reaction Status Date / Time bupropion HCl Allergy Rash/Hives Verified 05/18/21 01:18 [From Wellbutrin] divalproex sodium Allergy Unknown Verified 05/18/21 01:18 [From Depakote] fentanyl Allergy Swelling Verified 05/18/21 01:18 Iodinated Contrast Media Allergy Anaphylaxis Verified 05/18/21 01:18 [Iodinated Contrast Media - IV Dye] orange juice [[place]] Allergy Rash/Hives Verified 05/18/21 01:18 Sulfa (Sulfonamide Allergy Rash/Hives Verified 05/18/21 01:18 Antibiotics) Penicillins AdvReac Nausea & Verified 05/18/21 01:18 Vomiting Review of Systems ROS Statement: Those systems with pertinent positive or pertinent negative responses have been documented in the HPI. ROS Other: All systems not noted in ROS Statement are negative. 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 History of Any Multi-Drug Resistant Organisms: ESBL Date of last positivie culture/infection: 05/14/17 MDRO Source:: ESBL URINE, Past Surgical History: Bladder Surgery, Section, Cholecystectomy, Hysterectomy, Orthopedic Surgery, Tubal Ligation Additional Past Surgical History / Comment(s): R ovarian cystectomy, laparoscopic surgery for L ovary that had attached to the bowel, D&C, numerous lithotripsies, nephroscopies, cystoscopies and stents to ureters-none in place at this time, L robotic pyeloplasty with post op infection around kidney which then required a picc line/later removed (pt states was not MRSA), L rotator cuff repair, L wrist tendon surgery, colonoscopy Past Anesthesia/Blood Transfusion Reactions: Family History of Problems w/ Anesthesia Additional Past Anesthesia/Blood Transfusion Reaction / Comment(s): dad-hard time waking up due to enzyme problems in liver Past Psychological History: ADD/ADHD, Anxiety, Bipolar, Depression, PTSD Smoking Status: Current every day smoker Past Alcohol Use History: None Reported Past Drug Use History: None Reported - Past Family History Brother(s) Family Medical History: Cancer Additional Family Medical History / Comment(s): testicular Father Family Medical History: Coronary Artery Disease (CAD), CVA/TIA, Diabetes Mellitus, Renal Disease Additional Family Medical History / Comment(s): GLAUCOMA,NEUROPATHY HAD TRIPLE CABG, at 56yrs from renal disease. Mother Family Medical History: Hyperlipidemia Additional Family Medical History / Comment(s): DDD, HAD 3 vessel CABG AGE 54. General Exam - General Exam Comments Initial Comments: Physical Exam GENERAL: Patient is well-developed and well-nourished. Patient is nontoxic and well-hydrated and is in no distress. HENT: Normocephalic, Atraumatic. EYES: PERRL, EOMI PULMONARY: Unlabored respirations. CARDIOVASCULAR: RRR Warm and well perfused extremities ABDOMEN: Non-distended SKIN: No rashes or bruising : Deferred NEUROLOGIC: Alert and oriented Normal speech Normal gait MUSCULOSKELETAL: Moving all extremities with no apparent injury PSYCHIATRIC: No SI/HI Limitations: no limitations Course Vital Signs 05/18/21 01:15 Temperature 97.6 F Pulse Rate 103 H Respiratory 20 Rate Blood Pressure 126/86 O2 Sat by Pulse 100 Oximetry Medical Decision Making - Medical Decision Making Patient was seen and evaluated history was obtained from patient The patient is very well-known here for her frequent visits, frequent complaints of flank pain and dehydration though multiple workups in the ER have failed to identify any acute kidney stones. Advised patient she will be treated with Toradol and Zofran for her nausea. Disposition Clinical Impression: Flank pain Disposition: HOME SELF-CARE Condition: Stable Additional Instructions: Follow up with Dr Thakkar Is patient prescribed a controlled substance at d/c from ED?: No Referrals: Elida Basurto MD [Primary Care Provider] - 1-2 days
== END 2021-05-18 03:44 | disposition home or self-care (01) ==
LOC: EC 01:14
DX: R10.9 Unspecified abdominal pain (principal); E11.9 Type 2 diabetes mellitus without complications; I10 Essential (primary) hypertension; E78.5 Hyperlipidemia, unspecified; K21.9 Gastro-esophageal reflux disease without esophagitis; F31.9 Bipolar disorder, unspecified; F41.9 Anxiety disorder, unspecified; F90.9 Attention-deficit hyperactivity disorder, unspecified type; F17.200 Nicotine dependence, unspecified, uncomplicated; Z79.4 Long term (current) use of insulin; Z79.84 Long term (current) use of oral hypoglycemic drugs; Z79.899 Other long term (current) drug therapy
CPT/HCPCS: 99283; 96374; 96375; J2405; J1885

== ENCOUNTER 2021-05-24 01:32 | Emergency (ER) | payer BC, OTHER ==
[2021-05-24 03:25] VITALS: BP 124/77; PULSE 89; RESP 19; TEMP 97.8
[2021-05-24 05:05] LABS: Appearance,Urine Cloudy (Clear); Bacteria,Urine Rare /hpf; Bilirubin,Urine Negative (Negative); Blood,Urine Large (Negative); Budding Yeast,Urine Occasional /hpf; Calcium Oxalate Crystals,Urine Many /hpf; Color,Urine Yellow; Glucose,Urine (UA) 4+ (Negative); Ketones,Urine 1+ (Negative); Leukocyte Esterase,Urine Negative (Negative); Nitrite,Urine Negative (Negative); PH, Urine 6.5 (5.0-8.0); Protein,Urine Trace (Negative); RBC,Urine >182 /hpf (0-5); Specific Gravity,Urine 1.031 (1.001-1.035); Squamous Epithelial Cell,Urine 1 /hpf (0-4); WBC,Urine 2 /hpf (0-5)
[2021-05-24 05:50] LABS: ALT 32 U/L (4-34); AST 29 U/L (14-36); African American GFR (CKD) >90 (>60 ml/min/1.73 sqM); Albumin 4.5 g/dL (3.5-5.0); Alkaline Phosphatase 111 U/L (38-126); Anion Gap 12 mmol/L; Blood Urea Nitrogen 11 mg/dL (7-17); Calcium 9.6 mg/dL (8.4-10.2); Carbon Dioxide 18 mmol/L (22-30); Chloride 106 mmol/L (98-107); Glucose 285 mg/dL (74-99); Lipase 318 U/L (23-300); Non-African American GFR(CKD) >90 (>60 ml/min/1.73 sqM); Potassium 4.4 mmol/L (3.5-5.1); Sodium 136 mmol/L (137-145); Total Bilirubin 0.7 mg/dL (0.2-1.3); Total Protein 7.3 g/dL (6.3-8.2)
[2021-05-24 06:30] LABS: Basophils # (A) 0.1 k/uL (0-0.2); Basophils % (A) 1 %; Eosinophils # (A) 0.3 k/uL (0-0.7); Eosinophils % (A) 2 %; HCT 45.1 % (34.0-46.0); HGB 15.6 gm/dL (11.4-16.0); Lymphocytes # (A) 4.9 k/uL (1.0-4.8); Lymphocytes % (A) 35 %; MCH 30.5 pg (25.0-35.0); MCHC 34.6 g/dL (31.0-37.0); MCV 87.9 fL (80.0-100.0); Mean Platelet Volume 7.9; Monocytes # (A) 0.5 k/uL (0-1.0); Monocytes % (A) 4 %; Neutrophils % (A) 57 %; Platelet Count 305 k/uL (150-450); RBC 5.13 m/uL (3.80-5.40); RDW 12.9 % (11.5-15.5); WBC 13.9 k/uL (3.8-10.6)
== END 2021-05-24 05:15 | disposition left against medical advice (07) ==
LOC: EC 01:32
DX: Z53.21 Procedure and treatment not carried out due to patient leaving prior to being seen by health care provider (principal)
CPT/HCPCS: 36415; 80053; 81001; 83690; 85025; 99499

== ENCOUNTER 2021-06-04 03:20 | Emergency (ER) | payer BC, OTHER ==
[2021-06-04 03:33] VITALS: BP 131/90; PULSE 101; RESP 18; TEMP 98.5
[2021-06-04] MEDS ORDERED: MORPHINE SULFATE 4 MG/ML SYRINGE IV STA (04:28)
[2021-06-04 04:37] LABS: Basophils # (A) 0.1 k/uL (0-0.2); Basophils % (A) 1 %; Eosinophils # (A) 0.3 k/uL (0-0.7); Eosinophils % (A) 3 %; HCT 45.7 % (34.0-46.0); HGB 15.9 gm/dL (11.4-16.0); Lymphocytes # (A) 4.9 k/uL (1.0-4.8); Lymphocytes % (A) 42 %; MCH 30.9 pg (25.0-35.0); MCHC 34.8 g/dL (31.0-37.0); MCV 88.7 fL (80.0-100.0); Mean Platelet Volume 7.8; Monocytes # (A) 0.5 k/uL (0-1.0); Monocytes % (A) 5 %; Neutrophils # (A) 5.6 k/uL (1.3-7.7); Neutrophils % (A) 49 %; Platelet Count 289 k/uL (150-450); RBC 5.15 m/uL (3.80-5.40); RDW 12.7 % (11.5-15.5); WBC 11.5 k/uL (3.8-10.6)
[2021-06-04 04:52] LABS: Appearance,Urine Clear (Clear); Bacteria,Urine Rare /hpf; Bilirubin,Urine Negative (Negative); Blood,Urine Large (Negative); Color,Urine Yellow; Glucose,Urine (UA) 4+ (Negative); Ketones,Urine Negative (Negative); Leukocyte Esterase,Urine Trace (Negative); Nitrite,Urine Negative (Negative); PH, Urine 5.5 (5.0-8.0); Protein,Urine Negative (Negative); RBC,Urine >182 /hpf (0-5); Specific Gravity,Urine 1.038 (1.001-1.035); Squamous Epithelial Cell,Urine 1 /hpf (0-4); Urobilinogen,Urine <2.0 mg/dL (<2.0); WBC,Urine >182 /hpf (0-5)
[2021-06-04 05:03] LABS: ALT 32 U/L (4-34); AST 25 U/L (14-36); African American GFR (CKD) >90 (>60 ml/min/1.73 sqM); Albumin 4.5 g/dL (3.5-5.0); Alkaline Phosphatase 138 U/L (38-126); Amylase 50 U/L (30-110); Anion Gap 14 mmol/L; Blood Urea Nitrogen 12 mg/dL (7-17); Calcium 9.5 mg/dL (8.4-10.2); Carbon Dioxide 22 mmol/L (22-30); Chloride 97 mmol/L (98-107); Glucose 407 mg/dL (74-99); Lipase 134 U/L (23-300); Non-African American GFR(CKD) >90 (>60 ml/min/1.73 sqM); Sodium 133 mmol/L (137-145); Total Protein 7.5 g/dL (6.3-8.2)
[2021-06-04] MEDS ORDERED: INSULIN REGULAR 100 UNIT/ML VIAL (IV) SQ STA (05:09)
[2021-06-04] MEDS ORDERED: HYDROmorphone 0.5 MG/0.5 ML SYRINGE IVP STA (06:05)
--- NOTE | 2021-06-04 06:16 | ED ---
Abdominal Pain HPI - General Chief Complaint: Abdominal Pain Stated Complaint: Kidney Stones Time Seen by Provider: 06/04/21 03:51 Source: patient Mode of arrival: ambulatory Limitations: no limitations - History of Present Illness MD Complaint: flank pain -: days(s) Location: L flank Radiation: none Migration to: no migration Severity: moderate Quality: aching Consistency: constant Improves With: nothing Worsens With: nothing Associated Symptoms: nausea - Related Data Home Medications Medication Instructions Recorded Confirmed oxyCODONE-APAP 10-325MG [Percocet 1 tab PO Q6H PRN 08/29/17 04/21/20 10-325 mg] PARoxetine HCL [Paxil] 40 mg PO DAILY 03/12/18 04/21/20 Topiramate [Topamax] 100 mg PO BID 03/12/18 04/21/20 PARoxetine [Paxil] 20 mg PO DAILY 06/04/18 04/21/20 Atorvastatin [Lipitor] 40 mg PO DAILY 07/16/19 04/21/20 Insulin Glargine,Hum.rec.anlog 40 unit SQ HS 01/26/20 04/21/20 [Basaglar Kwikpen U-100] lisinopriL [Zestril] 10 mg PO DAILY 01/26/20 04/21/20 Montelukast [Singulair] 10 mg PO DAILY 02/09/20 04/21/20 ARIPiprazole [Abilify] 15 mg PO HS 04/04/20 04/21/20 Insulin Lispro [Admelog Solostar] 6 units SQ AC-TID 04/04/20 04/21/20 Mirtazapine 7.5 mg PO HS 04/04/20 04/21/20 OXcarbazepine [Trileptal] 300 mg PO BID 04/04/20 04/21/20 metFORMIN HCL [Glucophage] 1,000 mg PO BID 04/04/20 04/21/20 Loratadine 10 mg PO DAILY 04/21/20 04/21/20 Previous Rx's Medication Instructions Recorded SUMAtriptan succinate [Imitrex] 100 mg PO DAILY PRN tab 08/02/17 Ciprofloxacin HCl [Cipro] 500 mg PO Q12HR 1 Days #6 tab 05/27/20 Clindamycin Gel [Clindamycin 1 applic TOPICAL BID #1 tube 09/09/20 Phosphate 1% Gel] Fluconazole [Diflucan] 150 mg PO ONCE #1 tab 10/15/20 Ciprofloxacin HCl [Cipro] 500 mg PO Q12HR #14 tablet 12/11/20 Prochlorperazine [Compazine] 10 mg PO Q8H #30 tab 04/14/21 Allergies Allergy/AdvReac Type Severity Reaction Status Date / Time bupropion HCl Allergy Rash/Hives Verified 06/04/21 03:31 [From Wellbutrin] divalproex sodium Allergy Unknown Verified 06/04/21 03:31 [From Depakote] fentanyl Allergy Swelling Verified 06/04/21 03:31 Iodinated Contrast Media Allergy Anaphylaxis Verified 06/04/21 03:31 [Iodinated Contrast Media - IV Dye] orange juice [[place]] Allergy Rash/Hives Verified 06/04/21 03:31 Sulfa (Sulfonamide Allergy Rash/Hives Verified 06/04/21 03:31 Antibiotics) Penicillins AdvReac Nausea & Verified 06/04/21 03:31 Vomiting Review of Systems ROS Statement: Those systems with pertinent positive or pertinent negative responses have been documented in the HPI. ROS Other: All systems not noted in ROS Statement are negative. Constitutional: Denies: fever, chills, weakness Respiratory: Denies: cough, dyspnea Cardiovascular: Denies: chest pain, palpitations, edema Gastrointestinal: Reports: as per HPI, abdominal pain. Denies: nausea, vomiting, diarrhea, constipation Genitourinary: Reports: hematuria. 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 History of Any Multi-Drug Resistant Organisms: ESBL Date of last positivie culture/infection: 05/14/17 MDRO Source:: ESBL URINE, Past Surgical History: Bladder Surgery, Section, Cholecystectomy, Hysterectomy, Orthopedic Surgery, Tubal Ligation Additional Past Surgical History / Comment(s): R ovarian cystectomy, laparoscopic surgery for L ovary that had attached to the bowel, D&C, numerous lithotripsies, nephroscopies, cystoscopies and stents to ureters-none in place at this time, L robotic pyeloplasty with post op infection around kidney which then required a picc line/later removed (pt states was not MRSA), L rotator cuff repair, L wrist tendon surgery, colonoscopy Past Anesthesia/Blood Transfusion Reactions: Family History of Problems w/ Anesthesia Additional Past Anesthesia/Blood Transfusion Reaction / Comment(s): dad-hard time waking up due to enzyme problems in liver Past Psychological History: ADD/ADHD, Anxiety, Bipolar, Depression, PTSD Smoking Status: Current every day smoker Past Alcohol Use History: None Reported Past Drug Use History: None Reported - Past Family History Brother(s) Family Medical History: Cancer Additional Family Medical History / Comment(s): testicular Father Family Medical History: Coronary Artery Disease (CAD), CVA/TIA, Diabetes Mellitus, Renal Disease Additional Family Medical History / Comment(s): GLAUCOMA,NEUROPATHY HAD TRIPLE CABG, at 56yrs from renal disease. Mother Family Medical History: Hyperlipidemia Additional Family Medical History / Comment(s): DDD, HAD 3 vessel CABG AGE 54. General Exam Limitations: no limitations General appearance: alert, in no apparent distress Head exam: Present: atraumatic, normocephalic Eye exam: Present: normal appearance. Absent: scleral icterus, conjunctival injection Neck exam: Present: normal inspection Respiratory exam: Present: normal lung sounds bilaterally. Absent: respiratory distress, wheezes, rales, rhonchi, stridor Cardiovascular Exam: Present: regular rate, normal rhythm, normal heart sounds. Absent: systolic murmur, diastolic murmur, rubs, gallop GI/Abdominal exam: Present: soft. Absent: distended, tenderness, guarding, rebound, rigid Extremities exam: Present: normal inspection, normal capillary refill. Absent: pedal edema, calf tenderness Back exam: Present: normal inspection, CVA tenderness (L). Absent: CVA tenderness (R) Neurological exam: Present: alert Skin exam: Present: warm, dry, intact, normal color. Absent: rash Course Vital Signs 06/04/21 03:31 Temperature 98.5 F Pulse Rate 101 H Respiratory 18 Rate Blood Pressure 131/90 O2 Sat by Pulse 95 Oximetry Medical Decision Making - Lab Data Result diagrams: 06/04/21 04:10 06/04/21 04:10 Lab Results 06/04/21 06/04/21 06/04/21 Range/Units 04:10 04:10 04:10 WBC 11.5 H (3.8-10.6) k/uL RBC 5.15 (3.80-5.40) m/uL Hgb 15.9 (11.4-16.0) gm/dL Hct 45.7 (34.0-46.0) % MCV 88.7 (80.0-100.0) fL MCH 30.9 (25.0-35.0) pg MCHC 34.8 (31.0-37.0) g/dL RDW 12.7 (11.5-15.5) % Plt Count 289 (150-450) k/uL MPV 7.8 Neutrophils % 49 % Lymphocytes % 42 % Monocytes % 5 % Eosinophils % 3 % Basophils % 1 % Neutrophils # 5.6 (1.3-7.7) k/uL Lymphocytes # 4.9 H (1.0-4.8) k/uL Monocytes # 0.5 (0-1.0) k/uL Eosinophils # 0.3 (0-0.7) k/uL Basophils # 0.1 (0-0.2) k/uL Sodium 133 L (137-145) mmol/L Potassium 4.0 (3.5-5.1) mmol/L Chloride 97 L (98-107) mmol/L Carbon Dioxide 22 (22-30) mmol/L Anion Gap 14 mmol/L BUN 12 (7-17) mg/dL Creatinine 0.63 (0.52-1.04) mg/dL Est GFR (CKD-EPI)AfAm >90 (>60 ml/min/1.73 sqM) Est GFR (CKD-EPI)NonAf >90 (>60 ml/min/1.73 sqM) Glucose 407 H (74-99) mg/dL Calcium 9.5 (8.4-10.2) mg/dL Total Bilirubin 1.0 (0.2-1.3) mg/dL AST 25 (14-36) U/L ALT 32 (4-34) U/L Alkaline Phosphatase 138 H (38-126) U/L Total Protein 7.5 (6.3-8.2) g/dL Albumin 4.5 (3.5-5.0) g/dL Amylase 50 (30-110) U/L Lipase 134 (23-300) U/L Urine Color Yellow Urine Appearance Clear (Clear) Urine pH 5.5 (5.0-8.0) Ur Specific [place] 1.038 H (1.001-1.035) Urine Protein Negative (Negative) Urine Glucose (UA) 4+ H (Negative) Urine Ketones Negative (Negative) Urine Blood Large H (Negative) Urine Nitrite Negative (Negative) Urine Bilirubin Negative (Negative) Urine Urobilinogen <2.0 (<2.0) mg/dL Ur Leukocyte Esterase Trace H (Negative) Urine RBC >182 H (0-5) /hpf Urine WBC >182 H (0-5) /hpf Ur Squamous Epith Cells 1 (0-4) /hpf Urine Bacteria Rare H (None) /hpf Disposition Clinical Impression: Left flank pain, Hyperglycemia Disposition: HOME SELF-CARE Condition: Fair Instructions (If sedation given, give patient instructions): Flank Pain (ED) Is patient prescribed a controlled substance at d/c from ED?: No Referrals: Elida Basurto MD [Primary Care Provider] - 1-2 days
== END 2021-06-04 06:30 | disposition home or self-care (01) ==
LOC: EC 03:20
DX: R10.9 Unspecified abdominal pain (principal); E11.65 Type 2 diabetes mellitus with hyperglycemia; I10 Essential (primary) hypertension; E78.5 Hyperlipidemia, unspecified; K21.9 Gastro-esophageal reflux disease without esophagitis; F31.9 Bipolar disorder, unspecified; F41.9 Anxiety disorder, unspecified; F17.200 Nicotine dependence, unspecified, uncomplicated; Z79.84 Long term (current) use of oral hypoglycemic drugs; Z79.4 Long term (current) use of insulin; Z79.899 Other long term (current) drug therapy
CPT/HCPCS: 99284; 96374; 96375; 36415; 80053; 82150; 83690; 85025; 81001; 87086; J2270; J1170

== ENCOUNTER 2021-06-21 20:41 | Emergency (ER) | payer BC, OTHER ==
[2021-06-21 20:45] VITALS: RESP 18
[2021-06-21 21:10] LABS: Amorphous Sediment,Urine Rare /hpf; Appearance,Urine Cloudy (Clear); Bacteria,Urine Occasional /hpf; Bilirubin,Urine Negative (Negative); Blood,Urine Large (Negative); Calcium Oxalate Crystals,Urine Occasional /hpf; Color,Urine Yellow; Glucose,Urine (UA) 4+ (Negative); Ketones,Urine 1+ (Negative); Leukocyte Esterase,Urine Small (Negative); Mucus,Urine Occasional /hpf; Nitrite,Urine Negative (Negative); Protein,Urine 1+ (Negative); RBC,Urine >182 /hpf (0-5); Specific Gravity,Urine 1.025 (1.001-1.035); Squamous Epithelial Cell,Urine 2 /hpf (0-4); Urobilinogen,Urine <2.0 mg/dL (<2.0); WBC,Urine 4 /hpf (0-5)
[2021-06-21] MEDS ORDERED: KETOROLAC 15 MG/ML 1 ML VIAL IVP STA (21:40)
[2021-06-21] MEDS ORDERED: HYDROmorphone 1 MG/ML 1 ML SYRINGE IVP STA ×2 (21:40→23:14)
[2021-06-21] MEDS ORDERED: SODIUM CHLORIDE 0.9% 500 ML 500 ML IV STA (21:40)
[2021-06-21] MEDS ORDERED: ONDANSETRON 4 MG/2 ML VIAL IVP STA (21:40)
[2021-06-21] MEDS ORDERED: SODIUM CHLORIDE 0.9% 1,000 ML IV STA ×2 (21:40)
[2021-06-21] MEDS ORDERED: PANTOPRAZOLE 40 MG/10 ML VIAL IVP STA (21:40)
[2021-06-21] MEDS ORDERED: diphenhydrAMINE 50 MG/ML 1 ML VIAL IVP STA (21:53)
--- NOTE | 2021-06-21 21:54 | ED ---
Recheck HPI - General Chief Complaint: Abdominal Pain Stated Complaint: Kidney Stones Time Seen by Provider: 06/21/21 21:31 Source: patient, RN notes reviewed, old records reviewed Mode of arrival: ambulatory Limitations: no limitations - History of Present Illness Initial Comments: This is a 46-year-old female well-known to our ER for evaluation regarding flank pain history of severe left-sided kidney stones presenting with kidney stone pain today. Patient states pain is just worse with increased nausea and vomiting. Patient is having difficulty controlling pain medication at home unable to keep down medications secondary to vomiting. MD Complaint: medication refill request -: days(s) Returns Today for: persistent/worsening pain related to initial visit Symptoms Since Prior Visit: worsening pain Associated Symptoms: malaise, nausea, abdominal pain Treatments Prior to Arrival: Given Pain Meds on - Related Data Home Medications Medication Instructions Recorded Confirmed oxyCODONE-APAP 10-325MG [Percocet 1 tab PO Q6H PRN 08/29/17 04/21/20 10-325 mg] PARoxetine HCL [Paxil] 40 mg PO DAILY 03/12/18 04/21/20 Topiramate [Topamax] 100 mg PO BID 03/12/18 04/21/20 PARoxetine [Paxil] 20 mg PO DAILY 06/04/18 04/21/20 Atorvastatin [Lipitor] 40 mg PO DAILY 07/16/19 04/21/20 Insulin Glargine,Hum.rec.anlog 40 unit SQ HS 01/26/20 04/21/20 [Basaglar Kwikpen U-100] lisinopriL [Zestril] 10 mg PO DAILY 01/26/20 04/21/20 Montelukast [Singulair] 10 mg PO DAILY 02/09/20 04/21/20 ARIPiprazole [Abilify] 15 mg PO HS 04/04/20 04/21/20 Insulin Lispro [Admelog Solostar] 6 units SQ AC-TID 04/04/20 04/21/20 Mirtazapine 7.5 mg PO HS 04/04/20 04/21/20 OXcarbazepine [Trileptal] 300 mg PO BID 04/04/20 04/21/20 metFORMIN HCL [Glucophage] 1,000 mg PO BID 04/04/20 04/21/20 Loratadine 10 mg PO DAILY 04/21/20 04/21/20 Previous Rx's Medication Instructions Recorded SUMAtriptan succinate [Imitrex] 100 mg PO DAILY PRN tab 08/02/17 Ciprofloxacin HCl [Cipro] 500 mg PO Q12HR 1 Days #6 tab 05/27/20 Clindamycin Gel [Clindamycin 1 applic TOPICAL BID #1 tube 09/09/20 Phosphate 1% Gel] Fluconazole [Diflucan] 150 mg PO ONCE #1 tab 10/15/20 Ciprofloxacin HCl [Cipro] 500 mg PO Q12HR #14 tablet 12/11/20 Prochlorperazine [Compazine] 10 mg PO Q8H #30 tab 04/14/21 Allergies Allergy/AdvReac Type Severity Reaction Status Date / Time bupropion HCl Allergy Rash/Hives Verified 06/21/21 20:45 [From Wellbutrin] divalproex sodium Allergy Unknown Verified 06/21/21 20:45 [From Depakote] fentanyl Allergy Swelling Verified 06/21/21 20:45 Iodinated Contrast Media Allergy Anaphylaxis Verified 06/21/21 20:45 [Iodinated Contrast Media - IV Dye] orange juice [[place]] Allergy Rash/Hives Verified 06/21/21 20:45 Sulfa (Sulfonamide Allergy Rash/Hives Verified 06/21/21 20:45 Antibiotics) Penicillins AdvReac Nausea & Verified 06/21/21 20:45 Vomiting Review of Systems ROS Statement: Those systems with pertinent positive or pertinent negative responses have been documented in the HPI. ROS Other: All systems not noted in ROS Statement are negative. 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 History of Any Multi-Drug Resistant Organisms: ESBL Date of last positivie culture/infection: 05/14/17 MDRO Source:: ESBL URINE, Past Surgical History: Bladder Surgery, Section, Cholecystectomy, Hysterectomy, Orthopedic Surgery, Tubal Ligation Additional Past Surgical History / Comment(s): R ovarian cystectomy, laparoscopic surgery for L ovary that had attached to the bowel, D&C, numerous lithotripsies, nephroscopies, cystoscopies and stents to ureters-none in place at this time, L robotic pyeloplasty with post op infection around kidney which then required a picc line/later removed (pt states was not MRSA), L rotator cuff repair, L wrist tendon surgery, colonoscopy Past Anesthesia/Blood Transfusion Reactions: Family History of Problems w/ Anesthesia Additional Past Anesthesia/Blood Transfusion Reaction / Comment(s): dad-hard time waking up due to enzyme problems in liver Past Psychological History: ADD/ADHD, Anxiety, Bipolar, Depression, PTSD Smoking Status: Current every day smoker Past Alcohol Use History: None Reported Past Drug Use History: None Reported - Past Family History Brother(s) Family Medical History: Cancer Additional Family Medical History / Comment(s): testicular Father Family Medical History: Coronary Artery Disease (CAD), CVA/TIA, Diabetes Mellitus, Renal Disease Additional Family Medical History / Comment(s): GLAUCOMA,NEUROPATHY HAD TRIPLE CABG, at 56yrs from renal disease. Mother Family Medical History: Hyperlipidemia Additional Family Medical History / Comment(s): DDD, HAD 3 vessel CABG AGE 54. General Exam Limitations: no limitations General appearance: alert, in no apparent distress Head exam: Present: atraumatic, normocephalic, normal inspection Eye exam: Present: normal appearance, PERRL, EOMI. Absent: scleral icterus, conjunctival injection, periorbital swelling ENT exam: Present: normal exam, mucous membranes moist Neck exam: Present: normal inspection. Absent: tenderness, meningismus, lymphadenopathy Respiratory exam: Present: normal lung sounds bilaterally. Absent: respiratory distress, wheezes, rales, rhonchi, stridor Cardiovascular Exam: Present: regular rate, normal rhythm, normal heart sounds. Absent: systolic murmur, diastolic murmur, rubs, gallop, clicks GI/Abdominal exam: Present: soft, normal bowel sounds. Absent: distended, tenderness, guarding, rebound, rigid Extremities exam: Present: normal inspection, full ROM, normal capillary refill. Absent: tenderness, pedal edema, joint swelling, calf tenderness Back exam: Present: normal inspection Neurological exam: Present: alert, oriented X3, CN II-XII intact Psychiatric exam: Present: normal affect, normal mood Skin exam: Present: warm, dry, intact, normal color. Absent: rash Course Vital Signs 06/21/21 06/21/21 06/21/21 20:42 21:31 23:12 Temperature 97.0 F L Pulse Rate 107 H 100 90 Respiratory 18 18 18 Rate Blood Pressure 125/61 122/83 128/79 O2 Sat by Pulse 100 97 96 Oximetry - Reevaluation(s) Reevaluation #1: 06/21/21 23:48 Records are reviewed Reevaluation #2: 06/21/21 23:48 Patient symptoms are improved here in the ER Reevaluation #3: 06/21/21 23:48 Patient informed results and questions answered feels good for discharge Medical Decision Making - Medical Decision Making 46 female to the ER for evaluation. Patient presents today for evaluation regards to flank pain with nausea vomiting. Patient symptoms are resolved currently and can be discharged home - Lab Data Result diagrams: 06/21/21 22:15 06/21/21 22:15 Lab Results 06/21/21 06/21/21 06/21/21 Range/Units 20:56 22:15 22:15 WBC 13.4 H (3.8-10.6) k/uL RBC 4.82 (3.80-5.40) m/uL Hgb 14.8 (11.4-16.0) gm/dL Hct 43.2 (34.0-46.0) % MCV 89.7 (80.0-100.0) fL MCH 30.7 (25.0-35.0) pg MCHC 34.2 (31.0-37.0) g/dL RDW 12.6 (11.5-15.5) % Plt Count 272 (150-450) k/uL MPV 7.9 Neutrophils % 56 % Lymphocytes % 36 % Monocytes % 3 % Eosinophils % 2 % Basophils % 1 % Neutrophils # 7.5 (1.3-7.7) k/uL Lymphocytes # 4.8 (1.0-4.8) k/uL Monocytes # 0.5 (0-1.0) k/uL Eosinophils # 0.2 (0-0.7) k/uL Basophils # 0.1 (0-0.2) k/uL Sodium 133 L (137-145) mmol/L Potassium 4.0 (3.5-5.1) mmol/L Chloride 102 (98-107) mmol/L Carbon Dioxide 15 L (22-30) mmol/L Anion Gap 16 mmol/L BUN 11 (7-17) mg/dL Creatinine 0.59 (0.52-1.04) mg/dL Est GFR (CKD-EPI)AfAm >90 (>60 ml/min/1.73 sqM) Est GFR (CKD-EPI)NonAf >90 (>60 ml/min/1.73 sqM) Glucose 402 H (74-99) mg/dL Calcium 9.7 (8.4-10.2) mg/dL Total Bilirubin 0.6 (0.2-1.3) mg/dL AST 31 (14-36) U/L ALT 31 (4-34) U/L Alkaline Phosphatase 120 (38-126) U/L Total Protein 6.6 (6.3-8.2) g/dL Albumin 3.8 (3.5-5.0) g/dL Amylase 55 (30-110) U/L Lipase 278 (23-300) U/L Urine Color Yellow Urine Appearance Cloudy H (Clear) Urine pH 6.0 (5.0-8.0) Ur Specific [place] 1.025 (1.001-1.035) Urine Protein 1+ H (Negative) Urine Glucose (UA) 4+ H (Negative) Urine Ketones 1+ H (Negative) Urine Blood Large H (Negative) Urine Nitrite Negative (Negative) Urine Bilirubin Negative (Negative) Urine Urobilinogen <2.0 (<2.0) mg/dL Ur Leukocyte Esterase Small H (Negative) Urine RBC >182 H (0-5) /hpf Urine WBC 4 (0-5) /hpf Ur Squamous Epith Cells 2 (0-4) /hpf Calcium Oxalate Crystal Occasional H (None) /hpf Amorphous Sediment Rare H (None) /hpf Urine Bacteria Occasional H (None) /hpf Urine Mucus Occasional H (None) /hpf Disposition Clinical Impression: Left flank pain, Ureterolithiasis, Nephrolithiasis, History of lithotripsy, Renal colic on left side Disposition: HOME SELF-CARE Condition: Good Instructions (If sedation given, give patient instructions): Abdominal Pain (ED) Is patient prescribed a controlled substance at d/c from ED?: No Referrals: Elida Basurto MD [Primary Care Provider] - 1-2 days
[2021-06-21 22:44] LABS: Basophils # (A) 0.1 k/uL (0-0.2); Basophils % (A) 1 %; Eosinophils # (A) 0.2 k/uL (0-0.7); Eosinophils % (A) 2 %; HCT 43.2 % (34.0-46.0); HGB 14.8 gm/dL (11.4-16.0); Lymphocytes # (A) 4.8 k/uL (1.0-4.8); Lymphocytes % (A) 36 %; MCH 30.7 pg (25.0-35.0); MCHC 34.2 g/dL (31.0-37.0); MCV 89.7 fL (80.0-100.0); Mean Platelet Volume 7.9; Monocytes # (A) 0.5 k/uL (0-1.0); Monocytes % (A) 3 %; Neutrophils # (A) 7.5 k/uL (1.3-7.7); Neutrophils % (A) 56 %; Platelet Count 272 k/uL (150-450); RBC 4.82 m/uL (3.80-5.40); RDW 12.6 % (11.5-15.5); WBC 13.4 k/uL (3.8-10.6)
[2021-06-21 23:23] LABS: ALT 31 U/L (4-34); AST 31 U/L (14-36); African American GFR (CKD) >90 (>60 ml/min/1.73 sqM); Albumin 3.8 g/dL (3.5-5.0); Alkaline Phosphatase 120 U/L (38-126); Amylase 55 U/L (30-110); Anion Gap 16 mmol/L; Blood Urea Nitrogen 11 mg/dL (7-17); Calcium 9.7 mg/dL (8.4-10.2); Carbon Dioxide 15 mmol/L (22-30); Chloride 102 mmol/L (98-107); Glucose 402 mg/dL (74-99); Lipase 278 U/L (23-300); Non-African American GFR(CKD) >90 (>60 ml/min/1.73 sqM); Sodium 133 mmol/L (137-145); Total Bilirubin 0.6 mg/dL (0.2-1.3); Total Protein 6.6 g/dL (6.3-8.2)
[2021-06-22 00:04] VITALS: BP 129/81; PULSE 89; TEMP 98.4
== END 2021-06-22 00:03 | disposition home or self-care (01) ==
LOC: EC 20:41
DX: N20.2 Calculus of kidney with calculus of ureter (principal); N23 Unspecified renal colic; Z98.890 Other specified postprocedural states; E11.9 Type 2 diabetes mellitus without complications; E78.5 Hyperlipidemia, unspecified; I10 Essential (primary) hypertension; F17.200 Nicotine dependence, unspecified, uncomplicated; F90.9 Attention-deficit hyperactivity disorder, unspecified type; F41.9 Anxiety disorder, unspecified; F31.9 Bipolar disorder, unspecified; F43.10 Post-traumatic stress disorder, unspecified; Z79.4 Long term (current) use of insulin; Z79.84 Long term (current) use of oral hypoglycemic drugs; Z79.899 Other long term (current) drug therapy
CPT/HCPCS: 36415; 80053; 82150; 83690; 85025; 81001; 99284; 96374; 96375 ×4; 96376; 96361 ×2; J1200; J2405; J1170; J1885; C9113

== ENCOUNTER 2021-06-28 23:58 | Emergency (ER) | payer BC, OTHER ==
[2021-06-29 00:26] VITALS: BP 113/77; PULSE 90; RESP 18; TEMP 98.8
[2021-06-29 01:03] LABS: Basophils # (A) 0.1 k/uL (0-0.2); Basophils % (A) 1 %; Eosinophils # (A) 0.2 k/uL (0-0.7); Eosinophils % (A) 2 %; HGB 14.7 gm/dL (11.4-16.0); Lymphocytes # (A) 4.5 k/uL (1.0-4.8); Lymphocytes % (A) 36 %; MCH 30.4 pg (25.0-35.0); MCHC 34.2 g/dL (31.0-37.0); Mean Platelet Volume 7.8; Monocytes # (A) 0.6 k/uL (0-1.0); Monocytes % (A) 5 %; Neutrophils # (A) 6.8 k/uL (1.3-7.7); Neutrophils % (A) 55 %; Platelet Count 268 k/uL (150-450); RBC 4.83 m/uL (3.80-5.40); RDW 11.9 % (11.5-15.5); WBC 12.3 k/uL (3.8-10.6)
[2021-06-29 01:08] LABS: Appearance,Urine Clear (Clear); Bilirubin,Urine Negative (Negative); Blood,Urine Large (Negative); Color,Urine Yellow; Glucose,Urine (UA) 4+ (Negative); Ketones,Urine Negative (Negative); Leukocyte Esterase,Urine Negative (Negative); Nitrite,Urine Negative (Negative); Protein,Urine Negative (Negative); RBC,Urine >182 /hpf (0-5); Specific Gravity,Urine 1.024 (1.001-1.035); Squamous Epithelial Cell,Urine 3 /hpf (0-4); Urobilinogen,Urine <2.0 mg/dL (<2.0); WBC,Urine 1 /hpf (0-5)
[2021-06-29] MEDS ORDERED: MORPHINE SULFATE 4 MG/ML SYRINGE IV STA (01:28)
[2021-06-29] MEDS ORDERED: ONDANSETRON 4 MG/2 ML VIAL IVP STA (01:28)
[2021-06-29 01:29] LABS: ALT 35 U/L (4-34); AST 29 U/L (14-36); African American GFR (CKD) >90 (>60 ml/min/1.73 sqM); Albumin 4.1 g/dL (3.5-5.0); Alkaline Phosphatase 116 U/L (38-126); Anion Gap 13 mmol/L; Blood Urea Nitrogen 11 mg/dL (7-17); Calcium 9.6 mg/dL (8.4-10.2); Carbon Dioxide 19 mmol/L (22-30); Chloride 103 mmol/L (98-107); Glucose 304 mg/dL (74-99); Non-African American GFR(CKD) >90 (>60 ml/min/1.73 sqM); Potassium 3.8 mmol/L (3.5-5.1); Sodium 135 mmol/L (137-145); Total Protein 6.8 g/dL (6.3-8.2)
--- NOTE | 2021-06-29 01:31 | ED ---
Back Pain [facility] - General Chief Complaint: Back Pain/Injury Stated Complaint: Back Pain Time Seen by Provider: 06/29/21 00:27 Source: patient Limitations: no limitations - History of Present Illness MD Complaint: back pain -: days(s) Place: home Radiation: flank Severity: moderate Quality: sharp, aching Consistency: constant Improves With: none Worsens With: none - Related Data Home Medications Medication Instructions Recorded Confirmed oxyCODONE-APAP 10-325MG [Percocet 1 tab PO Q6H PRN 08/29/17 04/21/20 10-325 mg] PARoxetine HCL [Paxil] 40 mg PO DAILY 03/12/18 04/21/20 Topiramate [Topamax] 100 mg PO BID 03/12/18 04/21/20 PARoxetine [Paxil] 20 mg PO DAILY 06/04/18 04/21/20 Atorvastatin [Lipitor] 40 mg PO DAILY 07/16/19 04/21/20 Insulin Glargine,Hum.rec.anlog 40 unit SQ HS 01/26/20 04/21/20 [Basaglar Kwikpen U-100] lisinopriL [Zestril] 10 mg PO DAILY 01/26/20 04/21/20 Montelukast [Singulair] 10 mg PO DAILY 02/09/20 04/21/20 ARIPiprazole [Abilify] 15 mg PO HS 04/04/20 04/21/20 Insulin Lispro [Admelog Solostar] 6 units SQ AC-TID 04/04/20 04/21/20 Mirtazapine 7.5 mg PO HS 04/04/20 04/21/20 OXcarbazepine [Trileptal] 300 mg PO BID 04/04/20 04/21/20 metFORMIN HCL [Glucophage] 1,000 mg PO BID 04/04/20 04/21/20 Loratadine 10 mg PO DAILY 04/21/20 04/21/20 Previous Rx's Medication Instructions Recorded SUMAtriptan succinate [Imitrex] 100 mg PO DAILY PRN tab 08/02/17 Ciprofloxacin HCl [Cipro] 500 mg PO Q12HR 1 Days #6 tab 05/27/20 Clindamycin Gel [Clindamycin 1 applic TOPICAL BID #1 tube 09/09/20 Phosphate 1% Gel] Fluconazole [Diflucan] 150 mg PO ONCE #1 tab 10/15/20 Ciprofloxacin HCl [Cipro] 500 mg PO Q12HR #14 tablet 12/11/20 Prochlorperazine [Compazine] 10 mg PO Q8H #30 tab 04/14/21 Allergies Allergy/AdvReac Type Severity Reaction Status Date / Time bupropion HCl Allergy Rash/Hives Verified 06/29/21 00:26 [From Wellbutrin] divalproex sodium Allergy Unknown Verified 06/29/21 00:26 [From Depakote] fentanyl Allergy Swelling Verified 06/29/21 00:26 Iodinated Contrast Media Allergy Anaphylaxis Verified 06/29/21 00:26 [Iodinated Contrast Media - IV Dye] orange juice [[place]] Allergy Rash/Hives Verified 06/29/21 00:26 Sulfa (Sulfonamide Allergy Rash/Hives Verified 06/29/21 00:26 Antibiotics) Penicillins AdvReac Nausea & Verified 06/29/21 00:26 Vomiting Review of Systems ROS Statement: Those systems with pertinent positive or pertinent negative responses have been documented in the HPI. ROS Other: All systems not noted in ROS Statement are negative. Constitutional: Denies: fever, chills Respiratory: Denies: cough, dyspnea Cardiovascular: Denies: chest pain, palpitations, edema Gastrointestinal: Reports: as per HPI, abdominal pain, nausea, vomiting. 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 History of Any Multi-Drug Resistant Organisms: ESBL Date of last positivie culture/infection: 05/14/17 MDRO Source:: ESBL URINE, Past Surgical History: Bladder Surgery, Section, Cholecystectomy, Hy sterectomy, Orthopedic Surgery, Tubal Ligation Additional Past Surgical History / Comment(s): R ovarian cystectomy, laparoscopic surgery for L ovary that had attached to the bowel, D&C, numerous lithotripsies, nephroscopies, cystoscopies and stents to ureters-none in place at this time, L robotic pyeloplasty with post op infection around kidney which then required a picc line/later removed (pt states was not MRSA), L rotator cuff repair, L wrist tendon surgery, colonoscopy Past Anesthesia/Blood Transfusion Reactions: Family History of Problems w/ Anesthesia Additional Past Anesthesia/Blood Transfusion Reaction / Comment(s): dad-hard time waking up due to enzyme problems in liver Past Psychological History: ADD/ADHD, Anxiety, Bipolar, Depression, PTSD Smoking Status: Current every day smoker Past Alcohol Use History: None Reported Past Drug Use History: None Reported - Past Family History Brother(s) Family Medical History: Cancer Additional Family Medical History / Comment(s): testicular Father Family Medical History: Coronary Artery Disease (CAD), CVA/TIA, Diabetes Mellitus, Renal Disease Additional Family Medical History / Comment(s): GLAUCOMA,NEUROPATHY HAD TRIPLE CABG, at 56yrs from renal disease. Mother Family Medical History: Hyperlipidemia Additional Family Medical History / Comment(s): DDD, HAD 3 vessel CABG AGE 54. General Exam Limitations: no limitations General appearance: alert, in no apparent distress Head exam: Present: atraumatic, normocephalic Eye exam: Present: normal appearance. Absent: scleral icterus, conjunctival injection Neck exam: Present: normal inspection Respiratory exam: Present: normal lung sounds bilaterally. Absent: respiratory distress, wheezes, rales, rhonchi, stridor Cardiovascular Exam: Present: regular rate, normal rhythm, normal heart sounds. Absent: systolic murmur, diastolic murmur, rubs, gallop GI/Abdominal exam: Present: soft. Absent: distended, tenderness, guarding, rebound, rigid, mass, pulsatile mass, hernia Extremities exam: Present: normal inspection, normal capillary refill. Absent: pedal edema, calf tenderness Back exam: Present: normal inspection, CVA tenderness (L). Absent: CVA tenderness (R) Neurological exam: Present: alert Skin exam: Present: warm, dry, intact, normal color. Absent: rash Course Vital Signs 06/29/21 00:24 Temperature 98.8 F Pulse Rate 90 Respiratory 18 Rate Blood Pressure 113/77 O2 Sat by Pulse 99 Oximetry Medical Decision Making - Lab Data Result diagrams: 06/29/21 00:52 06/29/21 00:52 Lab Results 06/29/21 06/29/21 06/29/21 Range/Units 00:52 00:52 00:52 WBC 12.3 H (3.8-10.6) k/uL RBC 4.83 (3.80-5.40) m/uL Hgb 14.7 (11.4-16.0) gm/dL Hct 43.0 (34.0-46.0) % MCV 89.0 (80.0-100.0) fL MCH 30.4 (25.0-35.0) pg MCHC 34.2 (31.0-37.0) g/dL RDW 11.9 (11.5-15.5) % Plt Count 268 (150-450) k/uL MPV 7.8 Neutrophils % 55 % Lymphocytes % 36 % Monocytes % 5 % Eosinophils % 2 % Basophils % 1 % Neutrophils # 6.8 (1.3-7.7) k/uL Lymphocytes # 4.5 (1.0-4.8) k/uL Monocytes # 0.6 (0-1.0) k/uL Eosinophils # 0.2 (0-0.7) k/uL Basophils # 0.1 (0-0.2) k/uL Sodium (137-145) mmol/L Potassium (3.5-5.1) mmol/L Chloride (98-107) mmol/L Carbon Dioxide (22-30) mmol/L Anion Gap mmol/L BUN (7-17) mg/dL Creatinine (0.52-1.04) mg/dL Est GFR (CKD-EPI)AfAm (>60 ml/min/1.73 sqM) Est GFR (CKD-EPI)NonAf (>60 ml/min/1.73 sqM) Glucose (74-99) mg/dL Calcium (8.4-10.2) mg/dL Total Bilirubin (0.2-1.3) mg/dL AST (14-36) U/L ALT (4-34) U/L Alkaline Phosphatase (38-126) U/L Total Protein (6.3-8.2) g/dL Albumin (3.5-5.0) g/dL Urine Color Yellow Urine Appearance Clear (Clear) Urine pH 5.0 (5.0-8.0) Ur Specific [place] 1.024 (1.001-1.035) Urine Protein Negative (Negative) Urine Glucose (UA) 4+ H (Negative) Urine Ketones Negative (Negative) Urine Blood Large H (Negative) Urine Nitrite Negative (Negative) Urine Bilirubin Negative (Negative) Urine Urobilinogen <2.0 (<2.0) mg/dL Ur Leukocyte Esterase Negative (Negative) Urine RBC >182 H (0-5) /hpf Urine WBC 1 (0-5) /hpf Ur Squamous Epith Cells 3 (0-4) /hpf Urine HCG, Qual Not Detected (Not Detectd) 06/29/21 Range/Units 00:52 WBC (3.8-10.6) k/uL RBC (3.80-5.40) m/uL Hgb (11.4-16.0) gm/dL Hct (34.0-46.0) % MCV (80.0-100.0) fL MCH (25.0-35.0) pg MCHC (31.0-37.0) g/dL RDW (11.5-15.5) % Plt Count (150-450) k/uL MPV Neutrophils % % Lymphocytes % % Monocytes % % Eosinophils % % Basophils % % Neutrophils # (1.3-7.7) k/uL Lymphocytes # (1.0-4.8) k/uL Monocytes # (0-1.0) k/uL Eosinophils # (0-0.7) k/uL Basophils # (0-0.2) k/uL Sodium 135 L (137-145) mmol/L Potassium 3.8 (3.5-5.1) mmol/L Chloride 103 (98-107) mmol/L Carbon Dioxide 19 L (22-30) mmol/L Anion Gap 13 mmol/L BUN 11 (7-17) mg/dL Creatinine 0.54 (0.52-1.04) mg/dL Est GFR (CKD-EPI)AfAm >90 (>60 ml/min/1.73 sqM) Est GFR (CKD-EPI)NonAf >90 (>60 ml/min/1.73 sqM) Glucose 304 H (74-99) mg/dL Calcium 9.6 (8.4-10.2) mg/dL Total Bilirubin 1.0 (0.2-1.3) mg/dL AST 29 (14-36) U/L ALT 35 H (4-34) U/L Alkaline Phosphatase 116 (38-126) U/L Total Protein 6.8 (6.3-8.2) g/dL Albumin 4.1 (3.5-5.0) g/dL Urine Color Urine Appearance (Clear) Urine pH (5.0-8.0) Ur Specific [place] (1.001-1.035) Urine Protein (Negative) Urine Glucose (UA) (Negative) Urine Ketones (Negative) Urine Blood (Negative) Urine Nitrite (Negative) Urine Bilirubin (Negative) Urine Urobilinogen (<2.0) mg/dL Ur Leukocyte Esterase (Negative) Urine RBC (0-5) /hpf Urine WBC (0-5) /hpf Ur Squamous Epith Cells (0-4) /hpf Urine HCG, Qual (Not Detectd) Disposition Clinical Impression: Left flank pain, chronic, Hematuria, Hyperglycemia Disposition: HOME SELF-CARE Condition: Good Instructions (If sedation given, give patient instructions): Flank Pain (ED) Is patient prescribed a controlled substance at d/c from ED?: No Referrals: Elida Basurto MD [Primary Care Provider] - 1-2 days
[2021-06-29] MEDS ORDERED: HYDROmorphone 0.5 MG/0.5 ML SYRINGE IVP STA ×2 (02:07→03:11)
== END 2021-06-29 03:31 | disposition home or self-care (01) ==
LOC: EC 23:58
DX: R31.9 Hematuria, unspecified (principal); E11.65 Type 2 diabetes mellitus with hyperglycemia; K21.9 Gastro-esophageal reflux disease without esophagitis; E78.5 Hyperlipidemia, unspecified; I10 Essential (primary) hypertension; F90.9 Attention-deficit hyperactivity disorder, unspecified type; F41.9 Anxiety disorder, unspecified; F31.9 Bipolar disorder, unspecified; F43.12 Post-traumatic stress disorder, chronic; F17.200 Nicotine dependence, unspecified, uncomplicated; Z79.4 Long term (current) use of insulin; Z79.84 Long term (current) use of oral hypoglycemic drugs; Z88.0 Allergy status to penicillin; Z88.2 Allergy status to sulfonamides; Z87.440 Personal history of urinary (tract) infections; Z90.49 Acquired absence of other specified parts of digestive tract; Z90.710 Acquired absence of both cervix and uterus; Z98.51 Tubal ligation status
CPT/HCPCS: 99284; 96374; 96375 ×2; 96376; 36415; 80053; 85025; 81001; 81025; J2270; J2405; J1170

== ENCOUNTER → 2021-07-15 | Outpatient (CLI) | payer BC, OTHER ==
--- NOTE | 2021-07-15 16:14 | XR ---
KUB HISTORY: Calculus of kidney Frontal KUB and 2 images correlated prior KUB 04/14/2021 Surgical clips are noted in the right upper quadrant. There is retained fecal debris throughout much of the distribution of the colon, overlying bowel gas may obscure underlying detail. Calcifications i n the pelvis felt likely to represent phleboliths. There is mild spinal curvature. Bone mineralizatio n is maintained. Lung bases are clear. IMPRESSION: No evident urinary calculus
== END | disposition home or self-care (01) ==
LOC: RADXRMAIN 14:42
DX: N20.0 Calculus of kidney (principal)
CPT/HCPCS: 74018

== ENCOUNTER 2021-07-18 23:04 | Emergency (ER) | payer BC, OTHER ==
[2021-07-18 23:30] VITALS: TEMP 98.7
[2021-07-19 01:13] LABS: Appearance,Urine Cloudy (Clear); Bacteria,Urine Rare /hpf; Bilirubin,Urine Negative (Negative); Blood,Urine Large (Negative); Budding Yeast,Urine Occasional /hpf; Calcium Oxalate Crystals,Urine Few /hpf; Color,Urine Yellow; Glucose,Urine (UA) Negative (Negative); Hyaline Casts,Urine 1 /lpf (0-2); Ketones,Urine Negative (Negative); Leukocyte Esterase,Urine Trace (Negative); Mucus,Urine Rare /hpf; Nitrite,Urine Negative (Negative); Protein,Urine Trace (Negative); RBC,Urine >182 /hpf (0-5); Specific Gravity,Urine 1.022 (1.001-1.035); Squamous Epithelial Cell,Urine 8 /hpf (0-4); WBC,Urine 6 /hpf (0-5)
[2021-07-19 01:41] LABS: Basophils # (A) 0.1 k/uL (0-0.2); Basophils % (A) 1 %; Eosinophils # (A) 0.3 k/uL (0-0.7); Eosinophils % (A) 2 %; HCT 41.6 % (34.0-46.0); HGB 14.4 gm/dL (11.4-16.0); Lymphocytes # (A) 4.7 k/uL (1.0-4.8); Lymphocytes % (A) 34 %; MCH 30.6 pg (25.0-35.0); MCHC 34.6 g/dL (31.0-37.0); MCV 88.6 fL (80.0-100.0); Mean Platelet Volume 7.7; Monocytes # (A) 0.7 k/uL (0-1.0); Monocytes % (A) 5 %; Neutrophils # (A) 7.8 k/uL (1.3-7.7); Neutrophils % (A) 57 %; Platelet Count 282 k/uL (150-450); RDW 12.1 % (11.5-15.5); WBC 13.7 k/uL (3.8-10.6)
[2021-07-19 01:49] LABS: ALT 43 U/L (4-34); AST 77 U/L (14-36); African American GFR (CKD) >90 (>60 ml/min/1.73 sqM); Albumin 4.4 g/dL (3.5-5.0); Alkaline Phosphatase 122 U/L (38-126); Anion Gap 11 mmol/L; Blood Urea Nitrogen 11 mg/dL (7-17); Calcium 9.7 mg/dL (8.4-10.2); Carbon Dioxide 22 mmol/L (22-30); Chloride 104 mmol/L (98-107); Glucose 292 mg/dL (74-99); Non-African American GFR(CKD) >90 (>60 ml/min/1.73 sqM); Potassium 3.7 mmol/L (3.5-5.1); Sodium 137 mmol/L (137-145); Total Bilirubin 1.1 mg/dL (0.2-1.3); Total Protein 7.1 g/dL (6.3-8.2)
[2021-07-19] MEDS ORDERED: ONDANSETRON 4 MG/2 ML VIAL IVP STA (01:55)
[2021-07-19] MEDS ORDERED: MORPHINE SULFATE 4 MG/ML SYRINGE IV STA ×2 (01:55→02:55)
--- NOTE | 2021-07-19 01:59 | ED ---
Back Pain HPI - General Chief Complaint: Back Pain/Injury Stated Complaint: Kidney stones Time Seen by Provider: 07/19/21 01:21 Source: patient Limitations: no limitations - History of Present Illness Initial Comments: This patient is 46 -year-old woman who presents with complaint of right flank pain that she states is identical to previous episodes kidney stone. She states this episode is been going on for a few days. She states that it was worse tonight and she presents today she if she can obtain relief. The patient states that she is scheduled with her new neurologist to have what sounds like lithotripsy procedure. Patient denies fever or chills. No other systemic symptoms. MD Complaint: back pain -: days(s) Similar Symptoms Previously: Yes Place: home Radiation: flank Severity: moderate Quality: sharp Consistency: constant Improves With: none Worsens With: none - Related Data Home Medications Medication Instructions Recorded Confirmed oxyCODONE-APAP 10-325MG [Percocet 1 tab PO Q6H PRN 08/29/17 04/21/20 10-325 mg] PARoxetine HCL [Paxil] 40 mg PO DAILY 03/12/18 04/21/20 Topiramate [Topamax] 100 mg PO BID 03/12/18 04/21/20 PARoxetine [Paxil] 20 mg PO DAILY 06/04/18 04/21/20 Atorvastatin [Lipitor] 40 mg PO DAILY 07/16/19 04/21/20 Insulin Glargine,Hum.rec.anlog 40 unit SQ HS 01/26/20 04/21/20 [Basaglar Kwikpen U-100] lisinopriL [Zestril] 10 mg PO DAILY 01/26/20 04/21/20 Montelukast [Singulair] 10 mg PO DAILY 02/09/20 04/21/20 ARIPiprazole [Abilify] 15 mg PO HS 04/04/20 04/21/20 Insulin Lispro [Admelog Solostar] 6 units SQ AC-TID 04/04/20 04/21/20 Mirtazapine 7.5 mg PO HS 04/04/20 04/21/20 OXcarbazepine [Trileptal] 300 mg PO BID 04/04/20 04/21/20 metFORMIN HCL [Glucophage] 1,000 mg PO BID 04/04/20 04/21/20 Loratadine 10 mg PO DAILY 04/21/20 04/21/20 Previous Rx's Medication Instructions Recorded SUMAtriptan succinate [Imitrex] 100 mg PO DAILY PRN tab 08/02/17 Ciprofloxacin HCl [Cipro] 500 mg PO Q12HR 1 Days #6 tab 05/27/20 Clindamycin Gel [Clindamycin 1 applic TOPICAL BID #1 tube 09/09/20 Phosphate 1% Gel] Fluconazole [Diflucan] 150 mg PO ONCE #1 tab 10/15/20 Ciprofloxacin HCl [Cipro] 500 mg PO Q12HR #14 tablet 12/11/20 Prochlorperazine [Compazine] 10 mg PO Q8H #30 tab 04/14/21 Allergies Allergy/AdvReac Type Severity Reaction Status Date / Time bupropion HCl Allergy Rash/Hives Verified 07/18/21 23:30 [From Wellbutrin] divalproex sodium Allergy Unknown Verified 07/18/21 23:30 [From Depakote] fentanyl Allergy Swelling Verified 07/18/21 23:30 Iodinated Contrast Media Allergy Anaphylaxis Verified 07/18/21 23:30 [Iodinated Contrast Media - IV Dye] orange juice [[place]] Allergy Rash/Hives Verified 07/18/21 23:30 Sulfa (Sulfonamide Allergy Rash/Hives Verified 07/18/21 23:30 Antibiotics) Penicillins AdvReac Nausea & Verified 07/18/21 23:30 Vomiting Review of Systems ROS Statement: Those systems with pertinent positive or pertinent negative responses have been documented in the HPI. ROS Other: All systems not noted in ROS Statement are negative. Constitutional: Denies: fever, chills Respiratory: Denies: cough, dyspnea Cardiovascular: Denies: chest pain, palpitations, syncope Gastrointestinal: Reports: abdominal pain, nausea. Denies: vomiting, diarrhea, constipation Genitourinary: Reports: frequency, hematuria. 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 History of Any Multi-Drug Resistant Organisms: ESBL Date of last positivie culture/infection: 05/14/17 MDRO Source:: ESBL URINE, Past Surgical History: Bladder Surgery, Section, Cholecystectomy, Hysterectomy, Orthopedic Surgery, Tubal Ligation Additional Past Surgical History / Comment(s): R ovarian cystectomy, laparoscopic surgery for L ovary that had attached to the bowel, D&C, numerous lithotripsies, nephroscopies, cystoscopies and stents to ureters-none in place at this time, L robotic pyeloplasty with post op infection around kidney which then required a picc line/later removed (pt states was not MRSA), L rotator cuff repair, L wrist tendon surgery, colonoscopy Past Anesthesia/Blood Transfusion Reactions: Family History of Problems w/ Anesthesia Additional Past Anesthesia/Blood Transfusion Reaction / Comment(s): dad-hard t sam waking up due to enzyme problems in liver Past Psychological History: ADD/ADHD, Anxiety, Bipolar, Depression, PTSD Smoking Status: Current every day smoker Past Alcohol Use History: None Reported Past Drug Use History: None Reported - Past Family History Brother(s) Family Medical History: Cancer Additional Family Medical History / Comment(s): testicular Father Family Medical History: Coronary Artery Disease (CAD), CVA/TIA, Diabetes Mellitus, Renal Disease Additional Family Medical History / Comment(s): GLAUCOMA,NEUROPATHY HAD TRIPLE CABG, at 56yrs from renal disease. Mother Family Medical History: Hyperlipidemia Additional Family Medical History / Comment(s): DDD, HAD 3 vessel CABG AGE 54. General Exam Limitations: no limitations General appearance: alert, in no apparent distress Head exam: Present: atraumatic, normocephalic Eye exam: Present: normal appearance. Absent: scleral icterus, conjunctival injection Respiratory exam: Present: normal lung sounds bilaterally. Absent: respiratory distress, wheezes, rales, rhonchi, stridor Cardiovascular Exam: Present: regular rate, normal rhythm, normal heart sounds. Absent: systolic murmur, diastolic murmur, rubs, gallop GI/Abdominal exam: Present: soft. Absent: distended, tenderness, guarding, rebound, rigid Extremities exam: Present: normal inspection, normal capillary refill. Absent: pedal edema, calf tenderness Back exam: Present: normal inspection, CVA tenderness (R). Absent: CVA tenderness (L) Skin exam: Present: warm, dry, intact, normal color. Absent: rash Course Vital Signs 07/18/21 23:29 Temperature 98.7 F Pulse Rate 98 Respiratory 18 Rate Blood Pressure 124/86 O2 Sat by Pulse 97 Oximetry Medical Decision Making - Lab Data Result diagrams: 07/19/21 01:31 07/19/21 01:31 Lab Results 07/19/21 07/19/21 07/19/21 Range/Units 00:30 00:30 01:31 WBC 13.7 H (3.8-10.6) k/uL RBC 4.70 (3.80-5.40) m/uL Hgb 14.4 (11.4-16.0) gm/dL Hct 41.6 (34.0-46.0) % MCV 88.6 (80.0-100.0) fL MCH 30.6 (25.0-35.0) pg MCHC 34.6 (31.0-37.0) g/dL RDW 12.1 (11.5-15.5) % Plt Count 282 (150-450) k/uL MPV 7.7 Neutrophils % 57 % Lymphocytes % 34 % Monocytes % 5 % Eosinophils % 2 % Basophils % 1 % Neutrophils # 7.8 H (1.3-7.7) k/uL Lymphocytes # 4.7 (1.0-4.8) k/uL Monocytes # 0.7 (0-1.0) k/uL Eosinophils # 0.3 (0-0.7) k/uL Basophils # 0.1 (0-0.2) k/uL Sodium (137-145) mmol/L Potassium (3.5-5.1) mmol/L Chloride (98-107) mmol/L Carbon Dioxide (22-30) mmol/L Anion Gap mmol/L BUN (7-17) mg/dL Creatinine (0.52-1.04) mg/dL Est GFR (CKD-EPI)AfAm (>60 ml/min/1.73 sqM) Est GFR (CKD-EPI)NonAf (>60 ml/min/1.73 sqM) Glucose (74-99) mg/dL Calcium (8.4-10.2) mg/dL Total Bilirubin (0.2-1.3) mg/dL AST (14-36) U/L ALT (4-34) U/L Alkaline Phosphatase (38-126) U/L Total Protein (6.3-8.2) g/dL Albumin (3.5-5.0) g/dL Urine Color Yellow Urine Appearance Cloudy H (Clear) Urine pH 6.0 (5.0-8.0) Ur Specific [place] 1.022 (1.001-1.035) Urine Protein Trace H (Negative) Urine Glucose (UA) Negative (Negative) Urine Ketones Negative (Negative) Urine Blood Large H (Negative) Urine Nitrite Negative (Negative) Urine Bilirubin Negative (Negative) Urine Urobilinogen 2.0 (<2.0) mg/dL Ur Leukocyte Esterase Trace H (Negative) Urine RBC >182 H (0-5) /hpf Urine WBC 6 H (0-5) /hpf Ur Squamous Epith Cells 8 H (0-4) /hpf Calcium Oxalate Crystal Few H (None) /hpf Urine Bacteria Rare H (None) /hpf Hyaline Casts 1 (0-2) /lpf Urine Mucus Rare H (None) /hpf Urine Yeast (Budding) Occasional H (None) /hpf Urine HCG, Qual Not Detected (Not Detectd) 07/19/21 Range/Units 01:31 WBC (3.8-10.6) k/uL RBC (3.80-5.40) m/uL Hgb (11.4-16.0) gm/dL Hct (34.0-46.0) % MCV (80.0-100.0) fL MCH (25.0-35.0) pg MCHC (31.0-37.0) g/dL RDW (11.5-15.5) % Plt Count (150-450) k/uL MPV Neutrophils % % Lymphocytes % % Monocytes % % Eosinophils % % Basophils % % Neutrophils # (1.3-7.7) k/uL Lymphocytes # (1.0-4.8) k/uL Monocytes # (0-1.0) k/uL Eosinophils # (0-0.7) k/uL Basophils # (0-0.2) k/uL Sodium 137 (137-145) mmol/L Potassium 3.7 (3.5-5.1) mmol/L Chloride 104 (98-107) mmol/L Carbon Dioxide 22 (22-30) mmol/L Anion Gap 11 mmol/L BUN 11 (7-17) mg/dL Creatinine 0.57 (0.52-1.04) mg/dL Est GFR (CKD-EPI)AfAm >90 (>60 ml/min/1.73 sqM) Est GFR (CKD-EPI)NonAf >90 (>60 ml/min/1.73 sqM) Glucose 292 H (74-99) mg/dL Calcium 9.7 (8.4-10.2) mg/dL Total Bilirubin 1.1 (0.2-1.3) mg/dL AST 77 H (14-36) U/L ALT 43 H (4-34) U/L Alkaline Phosphatase 122 (38-126) U/L Total Protein 7.1 (6.3-8.2) g/dL Albumin 4.4 (3.5-5.0) g/dL Urine Color Urine Appearance (Clear) Urine pH (5.0-8.0) Ur Specific [place] (1.001-1.035) Urine Protein (Negative) Urine Glucose (UA) (Negative) Urine Ketones (Negative) Urine Blood (Negative) Urine Nitrite (Negative) Urine Bilirubin (Negative) Urine Urobilinogen (<2.0) mg/dL Ur Leukocyte Esterase (Negative) Urine RBC (0-5) /hpf Urine WBC (0-5) /hpf Ur Squamous Epith Cells (0-4) /hpf Calcium Oxalate Crystal (None) /hpf Urine Bacteria (None) /hpf Hyaline Casts (0-2) /lpf Urine Mucus (None) /hpf Urine Yeast (Budding) (None) /hpf Urine HCG, Qual (Not Detectd) Disposition Clinical Impression: Flank pain Disposition: HOME SELF-CARE Condition: Fair Instructions (If sedation given, give patient instructions): Flank Pain (ED) Is patient prescribed a controlled substance at d/c from ED?: No Referrals: Elida Basurto MD [Primary Care Provider] - 1-2 days
[2021-07-19 04:02] VITALS: BP 128/79; PULSE 91; RESP 16
== END 2021-07-19 04:02 | disposition home or self-care (01) ==
LOC: EC 23:04
DX: R10.9 Unspecified abdominal pain (principal); F17.200 Nicotine dependence, unspecified, uncomplicated; E11.9 Type 2 diabetes mellitus without complications; E78.5 Hyperlipidemia, unspecified; I10 Essential (primary) hypertension; K21.9 Gastro-esophageal reflux disease without esophagitis; G43.909 Migraine, unspecified, not intractable, without status migrainosus; Z88.0 Allergy status to penicillin; Z88.2 Allergy status to sulfonamides; Z88.8 Allergy status to other drugs, medicaments and biological substances; Z91.041 Radiographic dye allergy status; Z88.5 Allergy status to narcotic agent; Z79.899 Other long term (current) drug therapy; Z79.84 Long term (current) use of oral hypoglycemic drugs; Z79.4 Long term (current) use of insulin
CPT/HCPCS: 36415; 80053; 85025; 81001; 81025; 99284; 96374; 96376; 96375; J2270; J2405

== ENCOUNTER 2021-07-27 05:01 | Emergency (ER) | payer BC, OTHER ==
[2021-07-27 06:13] LABS: HCT 40.8 % (34.0-46.0); MCH 30.6 pg (25.0-35.0); MCHC 34.4 g/dL (31.0-37.0); Mean Platelet Volume 7.8; Platelet Count 278 k/uL (150-450); RBC 4.58 m/uL (3.80-5.40); RDW 12.8 % (11.5-15.5)
[2021-07-27 06:30] LABS: ALT 34 U/L (4-34); AST 32 U/L (14-36); African American GFR (CKD) >90 (>60 ml/min/1.73 sqM); Albumin 4.2 g/dL (3.5-5.0); Alkaline Phosphatase 105 U/L (38-126); Amylase 53 U/L (30-110); Anion Gap 11 mmol/L; Blood Urea Nitrogen 6 mg/dL (7-17); Calcium 9.4 mg/dL (8.4-10.2); Carbon Dioxide 20 mmol/L (22-30); Chloride 106 mmol/L (98-107); Glucose 338 mg/dL (74-99); Lipase 193 U/L (23-300); Non-African American GFR(CKD) >90 (>60 ml/min/1.73 sqM); Potassium 3.4 mmol/L (3.5-5.1); Sodium 137 mmol/L (137-145); Total Bilirubin 0.8 mg/dL (0.2-1.3); Total Protein 7.1 g/dL (6.3-8.2)
[2021-07-27 06:36] LABS: Appearance,Urine Clear (Clear); Bacteria,Urine Rare /hpf; Bilirubin,Urine Negative (Negative); Blood,Urine Large (Negative); Calcium Oxalate Crystals,Urine Occasional /hpf; Color,Urine Yellow; Glucose,Urine (UA) 4+ (Negative); Ketones,Urine Negative (Negative); Leukocyte Esterase,Urine Negative (Negative); Mucus,Urine Rare /hpf; Nitrite,Urine Negative (Negative); PH, Urine 5.5 (5.0-8.0); Protein,Urine Negative (Negative); RBC,Urine >182 /hpf (0-5); Specific Gravity,Urine 1.009 (1.001-1.035); Squamous Epithelial Cell,Urine 1 /hpf (0-4); Urobilinogen,Urine <2.0 mg/dL (<2.0); WBC,Urine 3 /hpf (0-5)
[2021-07-27 06:46] LABS: HCG,Quantitative Serum <2.4 mIU/mL
[2021-07-27] MEDS ORDERED: ONDANSETRON 4 MG/2 ML VIAL IVP STA (07:12)
[2021-07-27] MEDS ORDERED: MORPHINE SULFATE 4 MG/ML SYRINGE IV STA (07:12)
--- NOTE | 2021-07-27 07:25 | ED ---
Abdominal Pain HPI - General Chief Complaint: Abdominal Pain Stated Complaint: Post Op Pain Time Seen by Provider: 07/27/21 05:45 Source: patient Mode of arrival: ambulatory - History of Present Illness Initial Comments: 's patient is a 46-year-old woman with history of chronic stones and left flank pain. She states she had procedure recently for the stone and then had stent p lacement. That was removed yesterday and then after that she did develop recurrence of her pain. No fever or chills. No chest pain, palpitations. MD Complaint: flank pain (Left) Onset/Timin -: days(s) Location: L flank Radiation: none Severity: severe Quality: sharp Consistency: constant Improves With: nothing Worsens With: nothing Associated Symptoms: nausea - Related Data Home Medications Medication Instructions Recorded Confirmed oxyCODONE-APAP 10-325MG [Percocet 1 tab PO Q6H PRN 08/29/17 04/21/20 10-325 mg] PARoxetine HCL [Paxil] 40 mg PO DAILY 03/12/18 04/21/20 Topiramate [Topamax] 100 mg PO BID 03/12/18 04/21/20 PARoxetine [Paxil] 20 mg PO DAILY 06/04/18 04/21/20 Atorvastatin [Lipitor] 40 mg PO DAILY 07/16/19 04/21/20 Insulin Glargine,Hum.rec.anlog 40 unit SQ HS 01/26/20 04/21/20 [Basaglar Kwikpen U-100] lisinopriL [Zestril] 10 mg PO DAILY 01/26/20 04/21/20 Montelukast [Singulair] 10 mg PO DAILY 02/09/20 04/21/20 ARIPiprazole [Abilify] 15 mg PO HS 04/04/20 04/21/20 Insulin Lispro [Admelog Solostar] 6 units SQ AC-TID 04/04/20 04/21/20 Mirtazapine 7.5 mg PO HS 04/04/20 04/21/20 OXcarbazepine [Trileptal] 300 mg PO BID 04/04/20 04/21/20 metFORMIN HCL [Glucophage] 1,000 mg PO BID 04/04/20 04/21/20 Loratadine 10 mg PO DAILY 04/21/20 04/21/20 Previous Rx's Medication Instructions Recorded SUMAtriptan succinate [Imitrex] 100 mg PO DAILY PRN tab 08/02/17 Ciprofloxacin HCl [Cipro] 500 mg PO Q12HR 1 Days #6 tab 05/27/20 Clindamycin Gel [Clindamycin 1 applic TOPICAL BID #1 tube 09/09/20 Phosphate 1% Gel] Fluconazole [Diflucan] 150 mg PO ONCE #1 tab 10/15/20 Ciprofloxacin HCl [Cipro] 500 mg PO Q12HR #14 tablet 12/11/20 Prochlorperazine [Compazine] 10 mg PO Q8H #30 tab 04/14/21 Cefdinir [Omnicef] 300 mg PO BID #14 capsule 07/21/21 Fluconazole [Diflucan] 150 mg PO DAILY #2 tab 07/21/21 Allergies Allergy/AdvReac Type Severity Reaction Status Date / Time bupropion HCl Allergy Rash/Hives Verified 08/10/21 03:56 [From Wellbutrin] divalproex sodium Allergy Unknown Verified 08/10/21 03:56 [From Depakote] fentanyl Allergy Swelling Verified 08/10/21 03:56 Iodinated Contrast Media Allergy Anaphylaxis Verified 08/10/21 03:56 [Iodinated Contrast Media - IV Dye] orange juice [[place]] Allergy Rash/Hives Verified 08/10/21 03:56 Sulfa (Sulfonamide Allergy Rash/Hives Verified 08/10/21 03:56 Antibiotics) Penicillins AdvReac Nausea & Verified 08/10/21 03:56 Vomiting Review of Systems ROS Statement: Those systems with pertinent positive or pertinent negative responses have been documented in the HPI. ROS Other: All systems not noted in ROS Statement are negative. Constitutional: Denies: fever, chills Respiratory: Denies: cough, dyspnea Cardiovascular: Denies: chest pain, palpitations, edema Gastrointestinal: Reports: as per HPI, abdominal pain, nausea. Denies: vomiting, diarrhea, constipation Genitourinary: Reports: frequency, hematuria. 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 History of Any Multi-Drug Resistant Organisms: ESBL Date of last positivie culture/infection: 05/14/17 MDRO Source:: ESBL URINE, Past Surgical History: Bladder Surgery, Section, Cholecystectomy, Hysterectomy, Orthopedic Surgery, Tubal Ligation Additional Past Surgical History / Comment(s): R ovarian cystectomy, laparoscopic surgery for L ovary that had attached to the bowel, D&C, numerous lithotripsies, nephroscopies, cystoscopies and stents to ureters-none in place at this time, L robotic pyeloplasty with post op infection around kidney which then required a picc line/later removed (pt states was not MRSA), L rotator cuff repair, L wrist tendon surgery, colonoscopy. Kidney stone removal. Past Anesthesia/Blood Transfusion Reactions: Family History of Problems w/ Anesthesia Additional Past Anesthesia/Blood Transfusion Reaction / Comment(s): dad-hard time waking up due to enzyme problems in liver Past Psychological History: ADD/ADHD, Anxiety, Bipolar, Depression, PTSD Smoking Status: Current every day smoker Past Alcohol Use History: None Reported Past Drug Use History: None Reported - Past Family History Brother(s) Family Medical History: Cancer Additional Family Medical History / Comment(s): testicular Father Family Medical History: Coronary Artery Disease (CAD), CVA/TIA, Diabetes Mellitus, Renal Disease Additional Family Medical History / Comment(s): GLAUCOMA,NEUROPATHY HAD TRIPLE CABG, at 56yrs from renal disease. Mother Family Medical History: Hyperlipidemia Additional Family Medical History / Comment(s): DDD, HAD 3 vessel CABG AGE 54. General Exam General appearance: alert, in no apparent distress Head exam: Present: atraumatic, normocephalic Respiratory exam: Present: normal lung sounds bilaterally. Absent: respiratory distress, wheezes, rales, rhonchi, stridor Cardiovascular Exam: Present: regular rate, normal rhythm, normal heart sounds. Absent: systolic murmur, diastolic murmur, rubs, gallop GI/Abdominal exam: Present: soft. Absent: distended, tenderness, guarding, rebound, rigid, mass Extremities exam: Present: normal inspection, normal capillary refill. Absent: pedal edema, calf tenderness Back exam: Present: normal inspection, CVA tenderness (L). Absent: CVA tenderness (R) Neurological exam: Present: alert Skin exam: Present: warm, dry, intact, normal color. Absent: rash Course Vital Signs 07/27/21 07/27/21 07/27/21 05:04 06:29 08:05 Temperature 97.0 F L 98 F Pulse Rate 87 97 80 Respiratory 16 22 18 Rate Blood Pressure 144/90 133/83 132/78 O2 Sat by Pulse 100 97 100 Oximetry Medical Decision Making - Lab Data Result diagrams: 07/27/21 06:02 07/27/21 06:02 Lab Results 07/27/21 07/27/21 07/27/21 Range/Units 06:02 06:02 06:02 WBC 14.0 H (3.8-10.6) k/uL RBC 4.58 (3.80-5.40) m/uL Hgb 14.0 (11.4-16.0) gm/dL Hct 40.8 (34.0-46.0) % MCV 89.0 (80.0-100.0) fL MCH 30.6 (25.0-35.0) pg MCHC 34.4 (31.0-37.0) g/dL RDW 12.8 (11.5-15.5) % Plt Count 278 (150-450) k/uL MPV 7.8 Neutrophils % (Manual) 60 % Lymphocytes % (Manual) 38 % Monocytes % (Manual) 1 % Eosinophils % (Manual) 1 % Neutrophils # (Manual) 8.40 H (1.3-7.7) k/uL Lymphocytes # (Manual) 5.32 H (1.0-4.8) k/uL Monocytes # (Manual) 0.14 (0-1.0) k/uL Eosinophils # (Manual) 0.14 (0-0.7) k/uL Nucleated RBCs 0 (0-0) /100 WBC Manual Slide Review Performed Sodium 137 (137-145) mmol/L Potassium 3.4 L (3.5-5.1) mmol/L Chloride 106 (98-107) mmol/L Carbon Dioxide 20 L (22-30) mmol/L Anion Gap 11 mmol/L BUN 6 L (7-17) mg/dL Creatinine 0.57 (0.52-1.04) mg/dL Est GFR (CKD-EPI)AfAm >90 (>60 ml/min/1.73 sqM) Est GFR (CKD-EPI)NonAf >90 (>60 ml/min/1.73 sqM) Glucose 338 H (74-99) mg/dL Calcium 9.4 (8.4-10.2) mg/dL Total Bilirubin 0.8 (0.2-1.3) mg/dL AST 32 (14-36) U/L ALT 34 (4-34) U/L Alkaline Phosphatase 105 (38-126) U/L Total Protein 7.1 (6.3-8.2) g/dL Albumin 4.2 (3.5-5.0) g/dL Amylase 53 (30-110) U/L Lipase 193 (23-300) U/L HCG, Quant <2.4 mIU/mL Urine Color Yellow Urine Appearance Clear (Clear) Urine pH 5.5 (5.0-8.0) Ur Specific [place] 1.009 (1.001-1.035) Urine Protein Negative (Negative) Urine Glucose (UA) 4+ H (Negative) Urine Ketones Negative (Negative) Urine Blood Large H (Negative) Urine Nitrite Negative (Negative) Urine Bilirubin Negative (Negative) Urine Urobilinogen <2.0 (<2.0) mg/dL Ur Leukocyte Esterase Negative (Negative) Urine RBC >182 H (0-5) /hpf Urine WBC 3 (0-5) /hpf Urine WBC Clumps Rare H (None) /hpf Ur Squamous Epith Cells 1 (0-4) /hpf Calcium Oxalate Crystal Occasional H (None) /hpf Urine Bacteria Rare H (None) /hpf Urine Mucus Rare H (None) /hpf Disposition Clinical Impression: Left flank pain, chronic Disposition: HOME SELF-CARE Condition: Good Instructions (If sedation given, give patient instructions): Flank Pain (ED) Is patient prescribed a controlled substance at d/c from ED?: No Referrals: Elida Basurto MD [Primary Care Provider] - 1-2 days
[2021-07-27 07:54] LABS: Eosinophils # (M) 0.14 k/uL (0-0.7); Lymphocytes # (M) 5.32 k/uL (1.0-4.8); Monocytes # (M) 0.14 k/uL (0-1.0); Neutrophils % (M) 60 %; Nucleated Red Blood Cells 0 /100 WBC (0-0); Total Cells Counted 100
[2021-07-27 08:06] VITALS: BP 132/78; PULSE 80; RESP 18; TEMP 98
== END 2021-07-27 08:06 | disposition home or self-care (01) ==
LOC: EC 05:01
DX: R10.9 Unspecified abdominal pain (principal); G89.28 Other chronic postprocedural pain; E11.9 Type 2 diabetes mellitus without complications; K21.9 Gastro-esophageal reflux disease without esophagitis; E78.5 Hyperlipidemia, unspecified; I10 Essential (primary) hypertension; F90.9 Attention-deficit hyperactivity disorder, unspecified type; F41.9 Anxiety disorder, unspecified; F31.9 Bipolar disorder, unspecified; F43.10 Post-traumatic stress disorder, unspecified; F17.200 Nicotine dependence, unspecified, uncomplicated; Z79.4 Long term (current) use of insulin; Z79.84 Long term (current) use of oral hypoglycemic drugs; Z88.0 Allergy status to penicillin; Z88.2 Allergy status to sulfonamides; Z87.440 Personal history of urinary (tract) infections; Z90.49 Acquired absence of other specified parts of digestive tract; Z90.710 Acquired absence of both cervix and uterus; Z98.51 Tubal ligation status; Z87.442 Personal history of urinary calculi
CPT/HCPCS: 99284; 96374; 96375; 36415; 80053; 82150; 83690; 85025; 81001; 84702; J2270; J2405

== ENCOUNTER 2021-08-06 03:41 | Emergency (ER) | payer BC, OTHER ==
[2021-08-06] MEDS ORDERED: SODIUM CHLORIDE 0.9% 1,000 ML IV STA (03:52)
[2021-08-06 04:32] LABS: Basophils # (A) 0.1 k/uL (0-0.2); Basophils % (A) 1 %; Eosinophils # (A) 0.2 k/uL (0-0.7); Eosinophils % (A) 1 %; HCT 42.2 % (34.0-46.0); HGB 14.5 gm/dL (11.4-16.0); Lymphocytes # (A) 5.4 k/uL (1.0-4.8); Lymphocytes % (A) 38 %; MCH 30.5 pg (25.0-35.0); MCHC 34.3 g/dL (31.0-37.0); MCV 89.1 fL (80.0-100.0); Mean Platelet Volume 7.6; Monocytes # (A) 0.7 k/uL (0-1.0); Monocytes % (A) 5 %; Neutrophils # (A) 7.7 k/uL (1.3-7.7); Neutrophils % (A) 54 %; Platelet Count 257 k/uL (150-450); RBC 4.73 m/uL (3.80-5.40); RDW 12.3 % (11.5-15.5); WBC 14.3 k/uL (3.8-10.6)
[2021-08-06 04:41] LABS: African American GFR (CKD) >90 (>60 ml/min/1.73 sqM); Anion Gap 11 mmol/L; Blood Urea Nitrogen 8 mg/dL (7-17); Calcium 9.2 mg/dL (8.4-10.2); Carbon Dioxide 25 mmol/L (22-30); Chloride 100 mmol/L (98-107); Glucose 337 mg/dL (74-99); Non-African American GFR(CKD) >90 (>60 ml/min/1.73 sqM); Potassium 3.5 mmol/L (3.5-5.1); Sodium 136 mmol/L (137-145)
[2021-08-06 04:58] LABS: Appearance,Urine Clear (Clear); Bilirubin,Urine Negative (Negative); Blood,Urine Large (Negative); Color,Urine Yellow; Glucose,Urine (UA) 4+ (Negative); Ketones,Urine Trace (Negative); Leukocyte Esterase,Urine Negative (Negative); Mucus,Urine Rare /hpf; Nitrite,Urine Negative (Negative); Protein,Urine Negative (Negative); RBC,Urine >182 /hpf (0-5); Specific Gravity,Urine 1.028 (1.001-1.035); Squamous Epithelial Cell,Urine 1 /hpf (0-4); Urobilinogen,Urine <2.0 mg/dL (<2.0); WBC,Urine 9 /hpf (0-5)
--- NOTE | 2021-08-06 05:06 | ED ---
General Adult HPI - General Chief complaint: Abdominal Pain Stated complaint: Abd Pain Time Seen by Provider: 08/06/21 04:16 Source: patient, family Mode of arrival: ambulatory Limitations: no limitations - History of Present Illness Initial comments: Dictation was produced using [employer] dictation software. please excuse any grammatical, word or spelling errors. Chief Complaint: 46-year-old female presents emergency prior for left-sided flank pain History of Present Illness: 46-year-old female presents emergency department for left-sided flank pain. Patient states that yesterday she had a ureteral stent removed by her urologist. Urologist is [facility]. Patient states that she gets frequent kidney stones. States that she has pain that relates to her groin area. Denies any dysuria. No fevers or constitutional symptoms. Patient denies any nausea or vomiting. The ROS documented in this emergency department record has been reviewed and confirmed by me. Those systems with pertinent positive or negative responses bradley ve been documented in the HPI. All other systems are other negative and/or noncontributory. PHYSICAL EXAM: General Impression: Alert and oriented x3, not in acute distress HEENT: Normocephalic atraumatic, extra-ocular movements intact, pupils equal and reactive to light bilaterally, mucous membranes moist. Cardiovascular: Heart regular rate and rhythm Chest: Able to complete full sentences, no retractions, no tachypnea Abdomen: abdomen soft, non-tender, non-distended, no organomegaly, positive CVA tenderness on the left Musculoskeletal: Pulses present and equal in all extremities, no peripheral edema Motor: no focal deficits noted Neurological: CN II-XII grossly intact, no focal motor or sensory deficits noted Skin: Intact with no visualized rashes Psych: Normal affect and mood ED course: 46-year-old female presents to the emergency department for left- sided flank pain. She had a ureteral stent removed by her urologist yesterday reportedly. Vital signs upon arrival are within acceptable limits. Patient is well-appearing at the bedside. Laboratory evaluations shows mild leukocytosis of 14.3, metabolic panel is unremarkable. Urinalysis shows blood, trace ketones. Urine sent for culture. No imaging indicated at this time. She does not appear to be in acute distress. Patient's is likely secondary to ureteral stent removal. Patient reevaluated at bedside at 5:10 AM found to be stable medical condition. She is well-appearing at the bedside. Patient be discharged as follow-up with urologist. - Related Data Home Medications Medication Instructions Recorded Confirmed oxyCODONE-APAP 10-325MG [Percocet 1 tab PO Q6H PRN 08/29/17 04/21/20 10-325 mg] PARoxetine HCL [Paxil] 40 mg PO DAILY 03/12/18 04/21/20 Topiramate [Topamax] 100 mg PO BID 03/12/18 04/21/20 PARoxetine [Paxil] 20 mg PO DAILY 06/04/18 04/21/20 Atorvastatin [Lipitor] 40 mg PO DAILY 07/16/19 04/21/20 Insulin Glargine,Hum.rec.anlog 40 unit SQ HS 01/26/20 04/21/20 [Basaglar Kwikpen U-100] lisinopriL [Zestril] 10 mg PO DAILY 01/26/20 04/21/20 Montelukast [Singulair] 10 mg PO DAILY 02/09/20 04/21/20 ARIPiprazole [Abilify] 15 mg PO HS 04/04/20 04/21/20 Insulin Lispro [Admelog Solostar] 6 units SQ AC-TID 04/04/20 04/21/20 Mirtazapine 7.5 mg PO HS 04/04/20 04/21/20 OXcarbazepine [Trileptal] 300 mg PO BID 04/04/20 04/21/20 metFORMIN HCL [Glucophage] 1,000 mg PO BID 04/04/20 04/21/20 Loratadine 10 mg PO DAILY 04/21/20 04/21/20 Previous Rx's Medication Instructions Recorded SUMAtriptan succinate [Imitrex] 100 mg PO DAILY PRN tab 08/02/17 Ciprofloxacin HCl [Cipro] 500 mg PO Q12HR 1 Days #6 tab 05/27/20 Clindamycin Gel [Clindamycin 1 applic TOPICAL BID #1 tube 09/09/20 Phosphate 1% Gel] Fluconazole [Diflucan] 150 mg PO ONCE #1 tab 10/15/20 Ciprofloxacin HCl [Cipro] 500 mg PO Q12HR #14 tablet 12/11/20 Prochlorperazine [Compazine] 10 mg PO Q8H #30 tab 04/14/21 Cefdinir [Omnicef] 300 mg PO BID #14 capsule 07/21/21 Fluconazole [Diflucan] 150 mg PO DAILY #2 tab 07/21/21 Allergies Allergy/AdvReac Type Severity Reaction Status Date / Time bupropion HCl Allergy Rash/Hives Verified 08/06/21 03:49 [From Wellbutrin] divalproex sodium Allergy Unknown Verified 08/06/21 03:49 [From Depakote] fentanyl Allergy Swelling Verified 08/06/21 03:49 Iodinated Contrast Media Allergy Anaphylaxis Verified 08/06/21 03:49 [Iodinated Contrast Media - IV Dye] orange juice [[place]] Allergy Rash/Hives Verified 08/06/21 03:49 Sulfa (Sulfonamide Allergy Rash/Hives Verified 08/06/21 03:49 Antibiotics) Penicillins AdvReac Nausea & Verified 08/06/21 03:49 Vomiting Review of Systems ROS Statement: Those systems with pertinent positive or pertinent negative responses have been documented in the HPI. ROS Other: All systems not noted in ROS Statement are negative. 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 History of Any Multi-Drug Resistant Organisms: ESBL Date of last positivie culture/infection: 05/14/17 MDRO Source:: ESBL URINE, Past Surgical History: Bladder Surgery, Section, Cholecystectomy, Hysterectomy, Orthopedic Surgery, Tubal Ligation Additional Past Surgical History / Comment(s): R ovarian cystectomy, laparoscopic surgery for L ovary that had attached to the bowel, D&C, numerous lithotripsies, nephroscopies, cystoscopies and stents to ureters-none in place at this time, L robotic pyeloplasty with post op infection around kidney which then required a picc line/later removed (pt states was not MRSA), L rotator cuff repair, L wrist tendon surgery, colonoscopy. Kidney stone removal. Past Anesthesia/Blood Transfusion Reactions: Family History of Problems w/ Anesthesia Additional Past Anesthesia/Blood Transfusion Reaction / Comment(s): dad-hard time waking up due to enzyme problems in liver Past Psychological History: ADD/ADHD, Anxiety, Bipolar, Depression, PTSD Smoking Status: Current every day smoker Past Alcohol Use History: None Reported Past Drug Use History: None Reported - Past Family History Brother(s) Family Medical History: Cancer Additional Family Medical History / Comment(s): testicular Father Family Medical History: Coronary Artery Disease (CAD), CVA/TIA, Diabetes Mellitus, Renal Disease Additional Family Medical History / Comment(s): GLAUCOMA,NEUROPATHY HAD TRIPLE C ABG, at 56yrs from renal disease. Mother Family Medical History: Hyperlipidemia Additional Family Medical History / Comment(s): DDD, HAD 3 vessel CABG AGE 54. General Exam Limitations: no limitations Course Vital Signs 08/06/21 03:45 Temperature 97.8 F Pulse Rate 100 Respiratory 22 Rate Blood Pressure 121/77 O2 Sat by Pulse 100 Oximetry Medical Decision Making - Lab Data Result diagrams: 08/06/21 04:04 08/06/21 04:04 Lab Results 08/06/21 08/06/21 08/06/21 Range/Units 04:04 04:04 04:04 WBC 14.3 H (3.8-10.6) k/uL RBC 4.73 (3.80-5.40) m/uL Hgb 14.5 (11.4-16.0) gm/dL Hct 42.2 (34.0-46.0) % MCV 89.1 (80.0-100.0) fL MCH 30.5 (25.0-35.0) pg MCHC 34.3 (31.0-37.0) g/dL RDW 12.3 (11.5-15.5) % Plt Count 257 (150-450) k/uL MPV 7.6 Neutrophils % 54 % Lymphocytes % 38 % Monocytes % 5 % Eosinophils % 1 % Basophils % 1 % Neutrophils # 7.7 (1.3-7.7) k/uL Lymphocytes # 5.4 H (1.0-4.8) k/uL Monocytes # 0.7 (0-1.0) k/uL Eosinophils # 0.2 (0-0.7) k/uL Basophils # 0.1 (0-0.2) k/uL Sodium 136 L (137-145) mmol/L Potassium 3.5 (3.5-5.1) mmol/L Chloride 100 (98-107) mmol/L Carbon Dioxide 25 (22-30) mmol/L Anion Gap 11 mmol/L BUN 8 (7-17) mg/dL Creatinine 0.62 (0.52-1.04) mg/dL Est GFR (CKD-EPI)AfAm >90 (>60 ml/min/1.73 sqM) Est GFR (CKD-EPI)NonAf >90 (>60 ml/min/1.73 sqM) Glucose 337 H (74-99) mg/dL Calcium 9.2 (8.4-10.2) mg/dL Urine Color Yellow Urine Appearance Clear (Clear) Urine pH 6.0 (5.0-8.0) Ur Specific [place] 1.028 (1.001-1.035) Urine Protein Negative (Negative) Urine Glucose (UA) 4+ H (Negative) Urine Ketones Trace H (Negative) Urine Blood Large H (Negative) Urine Nitrite Negative (Negative) Urine Bilirubin Negative (Negative) Urine Urobilinogen <2.0 (<2.0) mg/dL Ur Leukocyte Esterase Negative (Negative) Urine RBC >182 H (0-5) /hpf Urine WBC 9 H (0-5) /hpf Ur Squamous Epith Cells 1 (0-4) /hpf Urine Mucus Rare H (None) /hpf Disposition Clinical Impression: Flank pain Disposition: HOME SELF-CARE Condition: Fair Instructions (If sedation given, give patient instructions): Flank Pain (ED) Is patient prescribed a controlled substance at d/c from ED?: No Referrals: Elida Basurto MD [Primary Care Provider] - 1-2 days
[2021-08-06] MEDS ORDERED: MORPHINE SULFATE 4 MG/ML SYRINGE IV STA (05:10)
[2021-08-06 05:29] VITALS: BP 125/78; PULSE 77; RESP 18; TEMP 98.2
== END 2021-08-06 05:29 | disposition home or self-care (01) ==
LOC: EC 03:41
DX: R10.9 Unspecified abdominal pain (principal); E11.9 Type 2 diabetes mellitus without complications; I10 Essential (primary) hypertension; E78.5 Hyperlipidemia, unspecified; K21.9 Gastro-esophageal reflux disease without esophagitis; F31.9 Bipolar disorder, unspecified; F41.9 Anxiety disorder, unspecified; F17.200 Nicotine dependence, unspecified, uncomplicated; Z79.4 Long term (current) use of insulin; Z79.84 Long term (current) use of oral hypoglycemic drugs; Z79.899 Other long term (current) drug therapy
CPT/HCPCS: 36415; 80048; 85025; 81001; 99284; 96374; 96361; J2270

== ENCOUNTER 2021-08-26 23:13 | Emergency (ER) | payer BC, OTHER ==
[2021-08-26 23:32] VITALS: TEMP 97.2
[2021-08-27 00:10] LABS: Appearance,Urine Cloudy (Clear); Bacteria,Urine Rare /hpf; Bilirubin,Urine Negative (Negative); Blood,Urine Large (Negative); Calcium Oxalate Crystals,Urine Few /hpf; Color,Urine Yellow; Glucose,Urine (UA) 4+ (Negative); Ketones,Urine Trace (Negative); Leukocyte Esterase,Urine Trace (Negative); Mucus,Urine Rare /hpf; Nitrite,Urine Negative (Negative); PH, Urine 5.5 (5.0-8.0); Protein,Urine Negative (Negative); RBC,Urine >182 /hpf (0-5); Specific Gravity,Urine 1.036 (1.001-1.035); Squamous Epithelial Cell,Urine 2 /hpf (0-4); Urobilinogen,Urine <2.0 mg/dL (<2.0); WBC,Urine 51 /hpf (0-5)
[2021-08-27] MEDS ORDERED: ONDANSETRON 4 MG/2 ML VIAL IVP STA (01:38)
[2021-08-27] MEDS ORDERED: KETOROLAC 15 MG/ML 1 ML VIAL IVP STA (01:38)
[2021-08-27] MEDS ORDERED: SODIUM CHLORIDE 0.9% 1,000 ML IV STA ×2 (01:38)
[2021-08-27] MEDS ORDERED: HYDROmorphone 1 MG/ML 1 ML SYRINGE IVP STA (01:38)
--- NOTE | 2021-08-27 01:42 | ED ---
Recheck HPI - General Chief Complaint: Abdominal Pain Stated Complaint: Flank Pain Time Seen by Provider: 08/27/21 00:24 Source: patient, RN notes reviewed, old records reviewed Mode of arrival: ambulatory Limitations: no limitations - History of Present Illness Initial Comments: This is a 46-year-old female to the emergency department today. Patient p resents today for evaluation in regards to pain this is acute on chronic pain related to renal colic secondary to kidney stones. Patient is presented today for worsening pain nausea vomiting unable to take medication at home. Patient otherwise has no complaints no fevers MD Complaint: medication refill request -: hour(s) Returns Today for: persistent/worsening pain related to initial visit Symptoms Since Prior Visit: worsening pain Context: ran out of medication Associated Symptoms: nausea, abdominal pain Treatments Prior to Arrival: Given Pain Meds on - Related Data Home Medications Medication Instructions Recorded Confirmed oxyCODONE-APAP 10-325MG [Percocet 1 tab PO Q6H PRN 08/29/17 04/21/20 10-325 mg] PARoxetine HCL [Paxil] 40 mg PO DAILY 03/12/18 04/21/20 Topiramate [Topamax] 100 mg PO BID 03/12/18 04/21/20 PARoxetine [Paxil] 20 mg PO DAILY 06/04/18 04/21/20 Atorvastatin [Lipitor] 40 mg PO DAILY 07/16/19 04/21/20 Insulin Glargine,Hum.rec.anlog 40 unit SQ HS 01/26/20 04/21/20 [Basaglar Kwikpen U-100] lisinopriL [Zestril] 10 mg PO DAILY 01/26/20 04/21/20 Montelukast [Singulair] 10 mg PO DAILY 02/09/20 04/21/20 ARIPiprazole [Abilify] 15 mg PO HS 04/04/20 04/21/20 Insulin Lispro [Admelog Solostar] 6 units SQ AC-TID 04/04/20 04/21/20 Mirtazapine 7.5 mg PO HS 04/04/20 04/21/20 OXcarbazepine [Trileptal] 300 mg PO BID 04/04/20 04/21/20 metFORMIN HCL [Glucophage] 1,000 mg PO BID 04/04/20 04/21/20 Loratadine 10 mg PO DAILY 04/21/20 04/21/20 Previous Rx's Medication Instructions Recorded SUMAtriptan succinate [Imitrex] 100 mg PO DAILY PRN tab 08/02/17 Ciprofloxacin HCl [Cipro] 500 mg PO Q12HR 1 Days #6 tab 05/27/20 Clindamycin Gel [Clindamycin 1 applic TOPICAL BID #1 tube 09/09/20 Phosphate 1% Gel] Fluconazole [Diflucan] 150 mg PO ONCE #1 tab 10/15/20 Ciprofloxacin HCl [Cipro] 500 mg PO Q12HR #14 tablet 12/11/20 Prochlorperazine [Compazine] 10 mg PO Q8H #30 tab 04/14/21 Cefdinir [Omnicef] 300 mg PO BID #14 capsule 07/21/21 Fluconazole [Diflucan] 150 mg PO DAILY #2 tab 07/21/21 Allergies Allergy/AdvReac Type Severity Reaction Status Date / Time bupropion HCl Allergy Rash/Hives Verified 08/26/21 23:29 [From Wellbutrin] divalproex sodium Allergy Unknown Verified 08/26/21 23:29 [From Depakote] fentanyl Allergy Swelling Verified 08/26/21 23:29 Iodinated Contrast Media Allergy Anaphylaxis Verified 08/26/21 23:29 [Iodinated Contrast Media - IV Dye] orange juice [[place]] Allergy Rash/Hives Verified 08/26/21 23:29 Sulfa (Sulfonamide Allergy Rash/Hives Verified 08/26/21 23:29 Antibiotics) Penicillins AdvReac Nausea & Verified 08/26/21 23:29 Vomiting Review of Systems ROS Statement: Those systems with pertinent positive or pertinent negative responses have been documented in the HPI. ROS Other: All systems not noted in ROS Statement are negative. 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 History of Any Multi-Drug Resistant Organisms: ESBL Date of last positivie culture/infection: 05/14/17 MDRO Source:: ESBL URINE, Past Surgical History: Bladder Surgery, Section, Cholecystectomy, Hysterectomy, Orthopedic Surgery, Tubal Ligation Additional Past Surgical History / Comment(s): R ovarian cystectomy, laparoscopic surgery for L ovary that had attached to the bowel, D&C, numerous lithotripsies, nephroscopies, cystoscopies and stents to ureters-none in place at this time, L robotic pyeloplasty with post op infection around kidney which then required a picc line/later removed (pt states was not MRSA), L rotator cuff repair, L wrist tendon surgery, colonoscopy. Kidney stone removal. Past Anesthesia/Blood Transfusion Reactions: Family History of Problems w/ Anesthesia Additional Past Anesthesia/Blood Transfusion Reaction / Comment(s): dad-hard time waking up due to enzyme problems in liver Past Psychological History: ADD/ADHD, Anxiety, Bipolar, Depression, PTSD Smoking Status: Current every day smoker Past Alcohol Use History: None Reported Past Drug Use History: None Reported - Past Family History Brother(s) Family Medical History: Cancer Additional Family Medical History / Comment(s): testicular Father Family Medical History: Coronary Artery Disease (CAD), CVA/TIA, Diabetes Mellitus, Renal Disease Additional Family Medical History / Comment(s): GLAUCOMA,NEUROPATHY HAD TRIPLE CABG, at 56yrs from renal disease. Mother Family Medical History: Hyperlipidemia Additional Family Medical History / Comment(s): DDD, HAD 3 vessel CABG AGE 54. General Exam Limitations: no limitations General appearance: alert, in no apparent distress, anxious Head exam: Present: atraumatic, normocephalic, normal inspection Eye exam: Present: normal appearance, PERRL, EOMI. Absent: scleral icterus, conjunctival injection, periorbital swelling ENT exam: Present: normal exam, mucous membranes moist Neck exam: Present: normal inspection. Absent: tenderness, meningismus, lymphadenopathy Respiratory exam: Present: normal lung sounds bilaterally. Absent: respiratory distress, wheezes, rales, rhonchi, stridor Cardiovascular Exam: Present: normal rhythm, tachycardia, normal heart sounds. Absent: systolic murmur, diastolic murmur, rubs, gallop, clicks GI/Abdominal exam: Present: soft, normal bowel sounds. Absent: distended, tenderness, guarding, rebound, rigid Extremities exam: Present: normal inspection, full ROM, normal capillary refill. Absent: tenderness, pedal edema, joint swelling, calf tenderness Back exam: Present: normal inspection Neurological exam: Present: alert, oriented X3, CN II-XII intact Psychiatric exam: Present: normal affect, normal mood Skin exam: Present: warm, dry, intact, normal color. Absent: rash Course Vital Signs 08/26/21 08/27/21 08/27/21 23:30 02:24 03:19 Temperature 97.2 F L Pulse Rate 103 H 88 70 Respiratory 20 18 18 Rate Blood Pressure 107/46 110/68 135/68 O2 Sat by Pulse 99 98 98 Oximetry - Reevaluation(s) Reevaluation #1: 08/27/21 04:32 medical record is reviewed Reevaluation #2: 08/27/21 04:32 patient has adequate pain control currently Reevaluation #3: 08/27/21 04:32 patient informed results and questions answered Medical Decision Making - Medical Decision Making 46 female to the emergency departmentF for evaluation of severe abdominal pain. Renal colic, pain is controlled and patient can be discharged home - Lab Data Result diagrams: 08/27/21 01:46 08/27/21 01:46 Lab Results 08/26/21 08/27/21 08/27/21 Range/Units 23:34 01:46 01:46 WBC 16.5 H (3.8-10.6) k/uL RBC 4.78 (3.80-5.40) m/uL Hgb 14.2 (11.4-16.0) gm/dL Hct 41.6 (34.0-46.0) % MCV 87.2 (80.0-100.0) fL MCH 29.8 (25.0-35.0) pg MCHC 34.2 (31.0-37.0) g/dL RDW 12.2 (11.5-15.5) % Plt Count 281 (150-450) k/uL MPV 7.9 Neutrophils % 58 % Lymphocytes % 33 % Monocytes % 5 % Eosinophils % 2 % Basophils % 1 % Neutrophils # 9.6 H (1.3-7.7) k/uL Lymphocytes # 5.5 H (1.0-4.8) k/uL Monocytes # 0.9 (0-1.0) k/uL Eosinophils # 0.3 (0-0.7) k/uL Basophils # 0.2 (0-0.2) k/uL Sodium 135 L (137-145) mmol/L Potassium 3.4 L (3.5-5.1) mmol/L Chloride 106 (98-107) mmol/L Carbon Dioxide 20 L (22-30) mmol/L Anion Gap 9 mmol/L BUN 9 (7-17) mg/dL Creatinine 0.49 L (0.52-1.04) mg/dL Est GFR (CKD-EPI)AfAm >90 (>60 ml/min/1.73 sqM) Est GFR (CKD-EPI)NonAf >90 (>60 ml/min/1.73 sqM) Glucose 180 H (74-99) mg/dL Calcium 9.3 (8.4-10.2) mg/dL Total Bilirubin 0.9 (0.2-1.3) mg/dL AST 25 (14-36) U/L ALT 24 (4-34) U/L Alkaline Phosphatase 101 (38-126) U/L Total Protein 6.7 (6.3-8.2) g/dL Albumin 3.9 (3.5-5.0) g/dL Amylase 52 (30-110) U/L Lipase 138 (23-300) U/L Urine Color Yellow Urine Appearance Cloudy H (Clear) Urine pH 5.5 (5.0-8.0) Ur Specific [place] 1.036 H (1.001-1.035) Urine Protein Negative (Negative) Urine Glucose (UA) 4+ H (Negative) Urine Ketones Trace H (Negative) Urine Blood Large H (Negative) Urine Nitrite Negative (Negative) Urine Bilirubin Negative (Negative) Urine Urobilinogen <2.0 (<2.0) mg/dL Ur Leukocyte Esterase Trace H (Negative) Urine RBC >182 H (0-5) /hpf Urine WBC 51 H (0-5) /hpf Ur Squamous Epith Cells 2 (0-4) /hpf Calcium Oxalate Crystal Few H (None) /hpf Urine Bacteria Rare H (None) /hpf Urine Mucus Rare H (None) /hpf Disposition Clinical Impression: Abdominal pain, Left flank pain Disposition: HOME SELF-CARE Condition: Good Instructions (If sedation given, give patient instructions): Abdominal Pain ( ED) Is patient prescribed a controlled substance at d/c from ED?: No Referrals: Elida Basurto MD [Primary Care Provider] - 1-2 days
[2021-08-27 01:53] LABS: Basophils # (A) 0.2 k/uL (0-0.2); Basophils % (A) 1 %; Eosinophils # (A) 0.3 k/uL (0-0.7); Eosinophils % (A) 2 %; HCT 41.6 % (34.0-46.0); HGB 14.2 gm/dL (11.4-16.0); Lymphocytes # (A) 5.5 k/uL (1.0-4.8); Lymphocytes % (A) 33 %; MCH 29.8 pg (25.0-35.0); MCHC 34.2 g/dL (31.0-37.0); MCV 87.2 fL (80.0-100.0); Mean Platelet Volume 7.9; Monocytes # (A) 0.9 k/uL (0-1.0); Monocytes % (A) 5 %; Neutrophils # (A) 9.6 k/uL (1.3-7.7); Neutrophils % (A) 58 %; Platelet Count 281 k/uL (150-450); RBC 4.78 m/uL (3.80-5.40); RDW 12.2 % (11.5-15.5); WBC 16.5 k/uL (3.8-10.6)
[2021-08-27 02:04] LABS: ALT 24 U/L (4-34); AST 25 U/L (14-36); African American GFR (CKD) >90 (>60 ml/min/1.73 sqM); Albumin 3.9 g/dL (3.5-5.0); Alkaline Phosphatase 101 U/L (38-126); Amylase 52 U/L (30-110); Anion Gap 9 mmol/L; Blood Urea Nitrogen 9 mg/dL (7-17); Calcium 9.3 mg/dL (8.4-10.2); Carbon Dioxide 20 mmol/L (22-30); Chloride 106 mmol/L (98-107); Glucose 180 mg/dL (74-99); Lipase 138 U/L (23-300); Non-African American GFR(CKD) >90 (>60 ml/min/1.73 sqM); Potassium 3.4 mmol/L (3.5-5.1); Sodium 135 mmol/L (137-145); Total Bilirubin 0.9 mg/dL (0.2-1.3); Total Protein 6.7 g/dL (6.3-8.2)
[2021-08-27 02:25] VITALS: RESP 18
[2021-08-27 03:20] VITALS: BP 135/68; PULSE 70
== END 2021-08-27 03:45 | disposition home or self-care (01) ==
LOC: EC 23:13
DX: R10.9 Unspecified abdominal pain (principal); E11.9 Type 2 diabetes mellitus without complications; I10 Essential (primary) hypertension; E78.5 Hyperlipidemia, unspecified; K21.9 Gastro-esophageal reflux disease without esophagitis; F31.9 Bipolar disorder, unspecified; F41.9 Anxiety disorder, unspecified; F17.200 Nicotine dependence, unspecified, uncomplicated; Z79.4 Long term (current) use of insulin; Z79.84 Long term (current) use of oral hypoglycemic drugs; Z79.899 Other long term (current) drug therapy
CPT/HCPCS: 96375 ×3; 96374 ×2; 99284 ×2; 36415; 80053; 82150; 83690; 85025; 81001; 87086; J2405; J1170; J1885

== ENCOUNTER 2021-09-15 00:02 | Emergency (ER) | payer BC, OTHER ==
[2021-09-15 00:07] VITALS: TEMP 97.1
[2021-09-15] MEDS ORDERED: SODIUM CHLORIDE 0.9% 500 ML 500 ML IV STA (01:32)
[2021-09-15] MEDS ORDERED: MORPHINE SULFATE 4 MG/ML SYRINGE IV STA ×2 (01:32→03:42)
--- NOTE | 2021-09-15 01:34 | ED ---
Abdominal Pain HPI - General Chief Complaint: Abdominal Pain Stated Complaint: Abd Pain Time Seen by Provider: 09/15/21 01:23 Source: patient Mode of arrival: ambulatory Limitations: no limitations - History of Present Illness MD Complaint: flank pain Onset/Timin -: hour(s) Location: R flank Radiation: none Migration to: no migration Severity: severe Quality: sharp Consistency: constant Improves With: nothing Worsens With: nothing Associated Symptoms: nausea - Related Data Home Medications Medication Instructions Recorded Confirmed oxyCODONE-APAP 10-325MG [Percocet 1 tab PO Q6H PRN 08/29/17 04/21/20 10-325 mg] PARoxetine HCL [Paxil] 40 mg PO DAILY 03/12/18 04/21/20 Topiramate [Topamax] 100 mg PO BID 03/12/18 04/21/20 PARoxetine [Paxil] 20 mg PO DAILY 06/04/18 04/21/20 Atorvastatin [Lipitor] 40 mg PO DAILY 07/16/19 04/21/20 Insulin Glargine,Hum.rec.anlog 40 unit SQ HS 01/26/20 04/21/20 [Basaglar Kwikpen U-100] lisinopriL [Zestril] 10 mg PO DAILY 01/26/20 04/21/20 Montelukast [Singulair] 10 mg PO DAILY 02/09/20 04/21/20 ARIPiprazole [Abilify] 15 mg PO HS 04/04/20 04/21/20 Insulin Lispro [Admelog Solostar] 6 units SQ AC-TID 04/04/20 04/21/20 Mirtazapine 7.5 mg PO HS 04/04/20 04/21/20 OXcarbazepine [Trileptal] 300 mg PO BID 04/04/20 04/21/20 metFORMIN HCL [Glucophage] 1,000 mg PO BID 04/04/20 04/21/20 Loratadine 10 mg PO DAILY 04/21/20 04/21/20 Previous Rx's Medication Instructions Recorded SUMAtriptan succinate [Imitrex] 100 mg PO DAILY PRN tab 08/02/17 Ciprofloxacin HCl [Cipro] 500 mg PO Q12HR 1 Days #6 tab 05/27/20 Clindamycin Gel [Clindamycin 1 applic TOPICAL BID #1 tube 09/09/20 Phosphate 1% Gel] Fluconazole [Diflucan] 150 mg PO ONCE #1 tab 10/15/20 Ciprofloxacin HCl [Cipro] 500 mg PO Q12HR #14 tablet 12/11/20 Prochlorperazine [Compazine] 10 mg PO Q8H #30 tab 04/14/21 Cefdinir [Omnicef] 300 mg PO BID #14 capsule 07/21/21 Fluconazole [Diflucan] 150 mg PO DAILY #2 tab 07/21/21 Allergies Allergy/AdvReac Type Severity Reaction Status Date / Time bupropion HCl Allergy Rash/Hives Verified 09/15/21 00:06 [From Wellbutrin] divalproex sodium Allergy Unknown Verified 09/15/21 00:06 [From Depakote] fentanyl Allergy Swelling Verified 09/15/21 00:06 Iodinated Contrast Media Allergy Anaphylaxis Verified 09/15/21 00:06 [Iodinated Contrast Media - IV Dye] orange juice [[place]] Allergy Rash/Hives Verified 09/15/21 00:06 Sulfa (Sulfonamide Allergy Rash/Hives Verified 09/15/21 00:06 Antibiotics) Penicillins AdvReac Nausea & Verified 09/15/21 00:06 Vomiting Review of Systems ROS Statement: Those systems with pertinent positive or pertinent negative responses have been documented in the HPI. ROS Other: All systems not noted in ROS Statement are negative. Constitutional: Denies: fever, chills Respiratory: Denies: cough, dyspnea Cardiovascular: Denies: chest pain, palpitations, edema Gastrointestinal: Reports: abdominal pain, nausea, vomiting. Denies: diarrhea, constipation, melena, hematochezia Genitourinary: Reports: hematuria. 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 History of Any Multi-Drug Resistant Organisms: ESBL Date of last positivie culture/infection: 05/14/17 MDRO Source:: ESBL URINE, Past Surgical History: Bladder Surgery, Section, Cholecystectomy, Hysterectomy, Orthopedic Surgery, Tubal Ligation Additional Past Surgical History / Comment(s): R ovarian cystectomy, laparoscopic surgery for L ovary that had attached to the bowel, D&C, numerous lithotripsies, nephroscopies, cystoscopies and stents to ureters-none in place at this time, L robotic pyeloplasty with post op infection around kidney which then required a picc line/later removed (pt states was not MRSA), L rotator cuff repair, L wrist tendon surgery, colonoscopy. Kidney stone removal. Past Anesthesia/Blood Transfusion Reactions: Family History of Problems w/ Anesthesia Additional Past Anesthesia/Blood Transfusion Reaction / Comment(s): dad-hard time waking up due to enzyme problems in liver Past Psychological History: ADD/ADHD, Anxiety, Bipolar, Depression, PTSD Smoking Status: Current every day smoker Past Alcohol Use History: None Reported Past Drug Use History: None Reported - Past Family History Brother(s) Family Medical History: Cancer Additional Family Medical History / Comment(s): testicular Father Family Medical History: Coronary Artery Disease (CAD), CVA/TIA, Diabetes Mellitus, Renal Disease Additional Family Medical History / Comment(s): GLAUCOMA,NEUROPATHY HAD TRIPLE CABG, at 56yrs from renal disease. Mother Family Medical History: Hyperlipidemia Additional Family Medical History / Comment(s): DDD, HAD 3 vessel CABG AGE 54. General Exam Limitations: no limitations General appearance: alert, in no apparent distress Head exam: Present: atraumatic, normocephalic Eye exam: Present: normal appearance. Absent: scleral icterus, conjunctival injection Neck exam: Present: normal inspection Respiratory exam: Present: normal lung sounds bilaterally. Absent: respiratory distress, wheezes, rales, rhonchi, stridor Cardiovascular Exam: Present: regular rate, normal rhythm, normal heart sounds. Absent: systolic murmur, diastolic murmur, rubs, gallop GI/Abdominal exam: Present: soft, mass. Absent: distended, tenderness, guarding, rebound, rigid Extremities exam: Present: normal inspection, normal capillary refill. Absent: pedal edema, calf tenderness Back exam: Present: normal inspection, CVA tenderness (R). Absent: CVA tenderness (L) Neurological exam: Present: alert Skin exam: Present: warm, dry, intact, normal color. Absent: rash Course Vital Signs 09/15/21 09/15/21 00:03 03:06 Temperature 97.1 F L Pulse Rate 102 H 78 Respiratory 22 18 Rate Blood Pressure 119/79 119/77 O2 Sat by Pulse 99 98 Oximetry Medical Decision Making - Lab Data Result diagrams: 09/15/21 01:52 09/15/21 01:52 Lab Results 09/15/21 09/15/21 09/15/21 Range/Units 01:52 01:52 01:52 WBC 12.8 H (3.8-10.6) k/uL RBC 5.01 (3.80-5.40) m/uL Hgb 15.4 (11.4-16.0) gm/dL Hct 44.4 (34.0-46.0) % MCV 88.7 (80.0-100.0) fL MCH 30.8 (25.0-35.0) pg MCHC 34.7 (31.0-37.0) g/dL RDW 12.6 (11.5-15.5) % Plt Count 292 (150-450) k/uL MPV 7.4 Neutrophils % 46 % Lymphocytes % 46 % Monocytes % 3 % Eosinophils % 2 % Basophils % 1 % Neutrophils # 5.9 (1.3-7.7) k/uL Lymphocytes # 5.9 H (1.0-4.8) k/uL Monocytes # 0.4 (0-1.0) k/uL Eosinophils # 0.3 (0-0.7) k/uL Basophils # 0.1 (0-0.2) k/uL Manual Slide Review Performed Sodium 134 L (137-145) mmol/L Potassium 3.8 (3.5-5.1) mmol/L Chloride 102 (98-107) mmol/L Carbon Dioxide 21 L (22-30) mmol/L Anion Gap 11 mmol/L BUN 9 (7-17) mg/dL Creatinine 0.52 (0.52-1.04) mg/dL Est GFR (CKD-EPI)AfAm >90 (>60 ml/min/1.73 sqM) Est GFR (CKD-EPI)NonAf >90 (>60 ml/min/1.73 sqM) Glucose 339 H (74-99) mg/dL Plasma Lactic Acid Brant (0.7-2.0) mmol/L Calcium 9.5 (8.4-10.2) mg/dL Total Bilirubin 0.7 (0.2-1.3) mg/dL AST 23 (14-36) U/L ALT 22 (4-34) U/L Alkaline Phosphatase 113 (38-126) U/L Total Protein 7.3 (6.3-8.2) g/dL Albumin 4.3 (3.5-5.0) g/dL Amylase 66 (30-110) U/L Lipase 263 (23-300) U/L Urine Color Yellow Urine Appearance Clear (Clear) Urine pH 5.5 (5.0-8.0) Ur Specific [place] 1.029 (1.001-1.035) Urine Protein Negative (Negative) Urine Glucose (UA) 4+ H (Negative) Urine Ketones Trace H (Negative) Urine Blood Moderate H (Negative) Urine Nitrite Negative (Negative) Urine Bilirubin Negative (Negative) Urine Urobilinogen <2.0 (<2.0) mg/dL Ur Leukocyte Esterase Negative (Negative) Urine RBC >182 H (0-5) /hpf Urine WBC <1 (0-5) /hpf Ur Squamous Epith Cells 2 (0-4) /hpf Urine Bacteria Rare H (None) /hpf 09/15/21 Range/Units 01:52 WBC (3.8-10.6) k/uL RBC (3.80-5.40) m/uL Hgb (11.4-16.0) gm/dL Hct (34.0-46.0) % MCV (80.0-100.0) fL MCH (25.0-35.0) pg MCHC (31.0-37.0) g/dL RDW (11.5-15.5) % Plt Count (150-450) k/uL MPV Neutrophils % % Lymphocytes % % Monocytes % % Eosinophils % % Basophils % % Neutrophils # (1.3-7.7) k/uL Lymphocytes # (1.0-4.8) k/uL Monocytes # (0-1.0) k/uL Eosinophils # (0-0.7) k/uL Basophils # (0-0.2) k/uL Manual Slide Review Sodium (137-145) mmol/L Potassium (3.5-5.1) mmol/L Chloride (98-107) mmol/L Carbon Dioxide (22-30) mmol/L Anion Gap mmol/L BUN (7-17) mg/dL Creatinine (0.52-1.04) mg/dL Est GFR (CKD-EPI)AfAm (>60 ml/min/1.73 sqM) Est GFR (CKD-EPI)NonAf (>60 ml/min/1.73 sqM) Glucose (74-99) mg/dL Plasma Lactic Acid Brant 2.5 H* (0.7-2.0) mmol/L Calcium (8.4-10.2) mg/dL Total Bilirubin (0.2-1.3) mg/dL AST (14-36) U/L ALT (4-34) U/L Alkaline Phosphatase (38-126) U/L Total Protein (6.3-8.2) g/dL Albumin (3.5-5.0) g/dL Amylase (30-110) U/L Lipase (23-300) U/L Urine Color Urine Appearance (Clear) Urine pH (5.0-8.0) Ur Specific [place] (1.001-1.035) Urine Protein (Negative) Urine Glucose (UA) (Negative) Urine Ketones (Negative) Urine Blood (Negative) Urine Nitrite (Negative) Urine Bilirubin (Negative) Urine Urobilinogen (<2.0) mg/dL Ur Leukocyte Esterase (Negative) Urine RBC (0-5) /hpf Urine WBC (0-5) /hpf Ur Squamous Epith Cells (0-4) /hpf Urine Bacteria (None) /hpf Disposition Clinical Impression: Flank pain, Hyperglycemia due to diabetes mellitus Disposition: HOME SELF-CARE Condition: Good Instructions (If sedation given, give patient instructions): Flank Pain (ED), Diabetic Hyperglycemia (ED) Is patient prescribed a controlled substance at d/c from ED?: No Referrals: Elida Basurto MD [Primary Care Provider] - 1-2 days
[2021-09-15 02:04] LABS: Basophils # (A) 0.1 k/uL (0-0.2); Basophils % (A) 1 %; Eosinophils # (A) 0.3 k/uL (0-0.7); Eosinophils % (A) 2 %; HCT 44.4 % (34.0-46.0); HGB 15.4 gm/dL (11.4-16.0); Lymphocytes # (A) 5.9 k/uL (1.0-4.8); Lymphocytes % (A) 46 %; MCH 30.8 pg (25.0-35.0); MCHC 34.7 g/dL (31.0-37.0); MCV 88.7 fL (80.0-100.0); Mean Platelet Volume 7.4; Monocytes # (A) 0.4 k/uL (0-1.0); Monocytes % (A) 3 %; Neutrophils # (A) 5.9 k/uL (1.3-7.7); Neutrophils % (A) 46 %; Platelet Count 292 k/uL (150-450); RBC 5.01 m/uL (3.80-5.40); RDW 12.6 % (11.5-15.5); WBC 12.8 k/uL (3.8-10.6)
[2021-09-15 02:14] LABS: ALT 22 U/L (4-34); AST 23 U/L (14-36); African American GFR (CKD) >90 (>60 ml/min/1.73 sqM); Albumin 4.3 g/dL (3.5-5.0); Alkaline Phosphatase 113 U/L (38-126); Amylase 66 U/L (30-110); Anion Gap 11 mmol/L; Blood Urea Nitrogen 9 mg/dL (7-17); Calcium 9.5 mg/dL (8.4-10.2); Carbon Dioxide 21 mmol/L (22-30); Chloride 102 mmol/L (98-107); Glucose 339 mg/dL (74-99); Lipase 263 U/L (23-300); Non-African American GFR(CKD) >90 (>60 ml/min/1.73 sqM); Potassium 3.8 mmol/L (3.5-5.1); Sodium 134 mmol/L (137-145); Total Bilirubin 0.7 mg/dL (0.2-1.3); Total Protein 7.3 g/dL (6.3-8.2)
[2021-09-15 02:52] LABS: Appearance,Urine Clear (Clear); Bacteria,Urine Rare /hpf; Bilirubin,Urine Negative (Negative); Blood,Urine Moderate (Negative); Color,Urine Yellow; Glucose,Urine (UA) 4+ (Negative); Ketones,Urine Trace (Negative); Leukocyte Esterase,Urine Negative (Negative); Nitrite,Urine Negative (Negative); PH, Urine 5.5 (5.0-8.0); Protein,Urine Negative (Negative); RBC,Urine >182 /hpf (0-5); Specific Gravity,Urine 1.029 (1.001-1.035); Squamous Epithelial Cell,Urine 2 /hpf (0-4); Urobilinogen,Urine <2.0 mg/dL (<2.0); WBC,Urine <1 /hpf (0-5)
[2021-09-15] MEDS ORDERED: SODIUM CHLORIDE 0.9% 1,000 ML IV ONE (03:09)
[2021-09-15 03:11] VITALS: BP 119/77; PULSE 78; RESP 18
== END 2021-09-15 04:06 | disposition home or self-care (01) ==
LOC: EC 00:02
DX: E11.65 Type 2 diabetes mellitus with hyperglycemia (principal); I10 Essential (primary) hypertension; E78.5 Hyperlipidemia, unspecified; K21.9 Gastro-esophageal reflux disease without esophagitis; F31.9 Bipolar disorder, unspecified; F41.9 Anxiety disorder, unspecified; F90.9 Attention-deficit hyperactivity disorder, unspecified type; F17.200 Nicotine dependence, unspecified, uncomplicated; Z79.4 Long term (current) use of insulin; Z79.899 Other long term (current) drug therapy
CPT/HCPCS: 36415; 80053; 82150; 83605; 83690; 85025; 81001; 99284; 96374; 96376; 96361 ×2; J2270

== ENCOUNTER 2021-09-19 22:13 | Emergency (ER) | payer BC, OTHER ==
[2021-09-19 22:44] VITALS: TEMP 97.8
[2021-09-19 23:19] LABS: Appearance,Urine Clear (Clear); Bilirubin,Urine Negative (Negative); Blood,Urine Large (Negative); Color,Urine Light Yellow; Glucose,Urine (UA) 4+ (Negative); Ketones,Urine Negative (Negative); Leukocyte Esterase,Urine Negative (Negative); Nitrite,Urine Negative (Negative); Protein,Urine Negative (Negative); RBC,Urine >182 /hpf (0-5); Specific Gravity,Urine 1.031 (1.001-1.035); Squamous Epithelial Cell,Urine 1 /hpf (0-4); Urobilinogen,Urine <2.0 mg/dL (<2.0); WBC,Urine <1 /hpf (0-5)
[2021-09-20] MEDS ORDERED: PANTOPRAZOLE 40 MG/10 ML VIAL IVP STA (02:01)
[2021-09-20] MEDS ORDERED: KETOROLAC 15 MG/ML 1 ML VIAL IVP STA (02:01)
[2021-09-20] MEDS ORDERED: HYDROmorphone 1 MG/ML 1 ML SYRINGE IVP STA (02:01)
[2021-09-20] MEDS ORDERED: SODIUM CHLORIDE 0.9% 1,000 ML IV STA ×2 (02:01)
[2021-09-20] MEDS ORDERED: SODIUM CHLORIDE 0.9% 500 ML 500 ML IV STA (02:01)
[2021-09-20] MEDS ORDERED: PROCHLORPERAZINE INJ 10 MG/2 ML VIAL IVP STA (02:02)
--- NOTE | 2021-09-20 02:02 | ED ---
Abdominal Pain HPI - General Chief Complaint: Abdominal Pain Stated Complaint: Kidney Stones, Right side pain Time Seen by Provider: 09/20/21 01:47 Source: patient, RN notes reviewed, old records reviewed Mode of arrival: ambulatory Limitations: no limitations - History of Present Illness Initial Comments: This 46-year-old female DF for evaluation today. Patient coming in for evaluation of worsening flank pain known history of kidney stones and blood in the urine. Patient complaining of severe left flank pain with radiation to groin. Positive nausea positive vomiting unable to keep down medications at home. No fevers. Patient does have follow-up with urology this week MD Complaint: flank pain -: year(s) Location: LLQ, suprapubic, L flank Radiation: L flank Migration to: L flank Severity: severe Severity scale (1-10): 10 Quality: cramping, sharp Consistency: constant Improves With: nothing Worsens With: nothing Associated Symptoms: nausea, vomiting Treatments Prior to Arrival: prescription analgesics - Related Data Home Medications Medication Instructions Recorded Confirmed oxyCODONE-APAP 10-325MG [Percocet 1 tab PO Q6H PRN 08/29/17 04/21/20 10-325 mg] PARoxetine HCL [Paxil] 40 mg PO DAILY 03/12/18 04/21/20 Topiramate [Topamax] 100 mg PO BID 03/12/18 04/21/20 PARoxetine [Paxil] 20 mg PO DAILY 06/04/18 04/21/20 Atorvastatin [Lipitor] 40 mg PO DAILY 07/16/19 04/21/20 Insulin Glargine,Hum.rec.anlog 40 unit SQ HS 01/26/20 04/21/20 [Basaglar Kwikpen U-100] lisinopriL [Zestril] 10 mg PO DAILY 01/26/20 04/21/20 Montelukast [Singulair] 10 mg PO DAILY 02/09/20 04/21/20 ARIPiprazole [Abilify] 15 mg PO HS 04/04/20 04/21/20 Insulin Lispro [Admelog Solostar] 6 units SQ AC-TID 04/04/20 04/21/20 Mirtazapine 7.5 mg PO HS 04/04/20 04/21/20 OXcarbazepine [Trileptal] 300 mg PO BID 04/04/20 04/21/20 metFORMIN HCL [Glucophage] 1,000 mg PO BID 04/04/20 04/21/20 Loratadine 10 mg PO DAILY 04/21/20 04/21/20 Previous Rx's Medication Instructions Recorded SUMAtriptan succinate [Imitrex] 100 mg PO DAILY PRN tab 08/02/17 Ciprofloxacin HCl [Cipro] 500 mg PO Q12HR 1 Days #6 tab 05/27/20 Clindamycin Gel [Clindamycin 1 applic TOPICAL BID #1 tube 09/09/20 Phosphate 1% Gel] Fluconazole [Diflucan] 150 mg PO ONCE #1 tab 10/15/20 Ciprofloxacin HCl [Cipro] 500 mg PO Q12HR #14 tablet 12/11/20 Prochlorperazine [Compazine] 10 mg PO Q8H #30 tab 04/14/21 Cefdinir [Omnicef] 300 mg PO BID #14 capsule 07/21/21 Fluconazole [Diflucan] 150 mg PO DAILY #2 tab 07/21/21 Cephalexin [Keflex] 500 mg PO Q8HR 1 Days #3 cap 10/20/21 Fluconazole [Diflucan] 150 mg PO ONCE #1 tab 10/20/21 Allergies Allergy/AdvReac Type Severity Reaction Status Date / Time bupropion HCl Allergy Rash/Hives Verified 10/20/21 00:09 [From Wellbutrin] divalproex sodium Allergy Unknown Verified 10/20/21 00:09 [From Depakote] fentanyl Allergy Swelling Verified 10/20/21 00:09 Iodinated Contrast Media Allergy Anaphylaxis Verified 10/20/21 00:09 [Iodinated Contrast Media - IV Dye] orange juice [[place]] Allergy Rash/Hives Verified 10/20/21 00:09 Sulfa (Sulfonamide Allergy Rash/Hives Verified 10/20/21 00:09 Antibiotics) Penicillins AdvReac Nausea & Verified 10/20/21 00:09 Vomiting Review of Systems ROS Statement: Those systems with pertinent positive or pertinent negative responses have been documented in the HPI. ROS Other: All systems not noted in ROS Statement are negative. 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 History of Any Multi-Drug Resistant Organisms: ESBL Date of last positivie culture/infection: 05/14/17 MDRO Source:: ESBL URINE, Past Surgical History: Bladder Surgery, Section, Cholecystectomy, Hysterectomy, Orthopedic Surgery, Tubal Ligation Additional Past Surgical History / Comment(s): R ovarian cystectomy, laparoscopic surgery for L ovary that had attached to the bowel, D&C, numerous lithotripsies, nephroscopies, cystoscopies and stents to ureters-none in place at this time, L robotic pyeloplasty with post op infection around kidney which then required a picc line/later removed (pt states was not MRSA), L rotator cuff repair, L wrist tendon surgery, colonoscopy. Kidney stone removal. Past Anesthesia/Blood Transfusion Reactions: Family History of Problems w/ Anesthesia Additional Past Anesthesia/Blood Transfusion Reaction / Comment(s): dad-hard time waking up due to enzyme problems in liver Past Psychological History: ADD/ADHD, Anxiety, Bipolar, Depression, PTSD Smoking Status: Current every day smoker Past Alcohol Use History: None Reported Past Drug Use History: None Reported - Past Family History Brother(s) Family Medical History: Cancer Additional Family Medical History / Comment(s): testicular Father Family Medical History: Coronary Artery Disease (CAD), CVA/TIA, Diabetes Mellitus, Renal Disease Additional Family Medical History / Comment(s): GLAUCOMA,NEUROPATHY HAD TRIPLE CABG, at 56yrs from renal disease. Mother Family Medical History: Hyperlipidemia Additional Family Medical History / Comment(s): DDD, HAD 3 vessel CABG AGE 54. General Exam General appearance: alert, in no apparent distress, anxious Head exam: Present: atraumatic, normocephalic, normal inspection Eye exam: Present: normal appearance, PERRL, EOMI. Absent: scleral icterus, con junctival injection, periorbital swelling ENT exam: Present: normal exam, mucous membranes moist Neck exam: Present: normal inspection. Absent: tenderness, meningismus, lymphadenopathy Respiratory exam: Present: normal lung sounds bilaterally. Absent: respiratory distress, wheezes, rales, rhonchi, stridor Cardiovascular Exam: Present: regular rate, normal rhythm, normal heart sounds. Absent: systolic murmur, diastolic murmur, rubs, gallop, clicks GI/Abdominal exam: Present: soft, normal bowel sounds. Absent: distended, tenderness, guarding, rebound, rigid Extremities exam: Present: normal inspection, full ROM, normal capillary refill. Absent: tenderness, pedal edema, joint swelling, calf tenderness Back exam: Present: normal inspection Neurological exam: Present: alert, oriented X3, CN II-XII intact Psychiatric exam: Present: normal affect, normal mood Skin exam: Present: warm, dry, intact, normal color. Absent: rash Course Vital Signs 09/19/21 09/20/21 22:43 03:03 Temperature 97.8 F Pulse Rate 95 88 Respiratory 19 18 Rate Blood Pressure 124/87 131/68 O2 Sat by Pulse 98 97 Oximetry - Reevaluation(s) Reevaluation #1: 09/21/2021 Medical record is reviewed Patient symptoms are improved here in the ER Patient informed results questions are answered Medical Decision Making - Medical Decision Making 46 female to the emergency department for evaluation severe flank pain history of flank pain with kidney stones. Patient does follow-up with urology, symptoms are improved if not resolved here in the ER patient can be discharged home - Lab Data Result diagrams: 09/20/21 02:10 09/20/21 02:10 Lab Results 09/19/21 09/20/21 09/20/21 Range/Units 22:53 02:10 02:10 WBC 11.0 H (3.8-10.6) k/uL RBC 5.24 (3.80-5.40) m/uL Hgb 15.9 (11.4-16.0) gm/dL Hct 47.6 H (34.0-46.0) % MCV 90.8 (80.0-100.0) fL MCH 30.3 (25.0-35.0) pg MCHC 33.4 (31.0-37.0) g/dL RDW 12.6 (11.5-15.5) % Plt Count 302 (150-450) k/uL MPV 7.9 Neutrophils % 55 % Lymphocytes % 37 % Monocytes % 4 % Eosinophils % 2 % Basophils % 1 % Neutrophils # 6.1 (1.3-7.7) k/uL Lymphocytes # 4.1 (1.0-4.8) k/uL Monocytes # 0.4 (0-1.0) k/uL Eosinophils # 0.2 (0-0.7) k/uL Basophils # 0.1 (0-0.2) k/uL Sodium 130 L (137-145) mmol/L Potassium 4.2 (3.5-5.1) mmol/L Chloride 97 L (98-107) mmol/L Carbon Dioxide 21 L (22-30) mmol/L Anion Gap 12 mmol/L BUN 9 (7-17) mg/dL Creatinine 0.55 (0.52-1.04) mg/dL Est GFR (CKD-EPI)AfAm >90 (>60 ml/min/1.73 sqM) Est GFR (CKD-EPI)NonAf >90 (>60 ml/min/1.73 sqM) Glucose 566 H* (74-99) mg/dL Calcium 9.7 (8.4-10.2) mg/dL Total Bilirubin 0.8 (0.2-1.3) mg/dL AST 21 (14-36) U/L ALT 25 (4-34) U/L Alkaline Phosphatase 125 (38-126) U/L Total Protein 7.7 (6.3-8.2) g/dL Albumin 4.6 (3.5-5.0) g/dL Amylase 85 (30-110) U/L Lipase 704 H (23-300) U/L Urine Color Light Yellow Urine Appearance Clear (Clear) Urine pH 6.0 (5.0-8.0) Ur Specific [place] 1.031 (1.001-1.035) Urine Protein Negative (Negative) Urine Glucose (UA) 4+ H (Negative) Urine Ketones Negative (Negative) Urine Blood Large H (Negative) Urine Nitrite Negative (Negative) Urine Bilirubin Negative (Negative) Urine Urobilinogen <2.0 (<2.0) mg/dL Ur Leukocyte Esterase Negative (Negative) Urine RBC >182 H (0-5) /hpf Urine WBC <1 (0-5) /hpf Ur Squamous Epith Cells 1 (0-4) /hpf Disposition Clinical Impression: Abdominal pain, Left flank pain, chronic, Nephrolithiasis Disposition: HOME SELF-CARE Condition: Good Instructions (If sedation given, give patient instructions): Abdominal Pain (ED) Is patient prescribed a controlled substance at d/c from ED?: No Referrals: Elida Basurto MD [Primary Care Provider] - 1-2 days
[2021-09-20 02:35] LABS: Basophils # (A) 0.1 k/uL (0-0.2); Basophils % (A) 1 %; Eosinophils # (A) 0.2 k/uL (0-0.7); Eosinophils % (A) 2 %; HCT 47.6 % (34.0-46.0); HGB 15.9 gm/dL (11.4-16.0); Lymphocytes # (A) 4.1 k/uL (1.0-4.8); Lymphocytes % (A) 37 %; MCH 30.3 pg (25.0-35.0); MCHC 33.4 g/dL (31.0-37.0); MCV 90.8 fL (80.0-100.0); Mean Platelet Volume 7.9; Monocytes # (A) 0.4 k/uL (0-1.0); Monocytes % (A) 4 %; Neutrophils # (A) 6.1 k/uL (1.3-7.7); Neutrophils % (A) 55 %; Platelet Count 302 k/uL (150-450); RBC 5.24 m/uL (3.80-5.40); RDW 12.6 % (11.5-15.5)
[2021-09-20 02:54] LABS: ALT 25 U/L (4-34); AST 21 U/L (14-36); African American GFR (CKD) >90 (>60 ml/min/1.73 sqM); Albumin 4.6 g/dL (3.5-5.0); Alkaline Phosphatase 125 U/L (38-126); Amylase 85 U/L (30-110); Anion Gap 12 mmol/L; Blood Urea Nitrogen 9 mg/dL (7-17); Calcium 9.7 mg/dL (8.4-10.2); Carbon Dioxide 21 mmol/L (22-30); Chloride 97 mmol/L (98-107); Lipase 704 U/L (23-300); Non-African American GFR(CKD) >90 (>60 ml/min/1.73 sqM); Potassium 4.2 mmol/L (3.5-5.1); Sodium 130 mmol/L (137-145); Total Bilirubin 0.8 mg/dL (0.2-1.3); Total Protein 7.7 g/dL (6.3-8.2)
[2021-09-20 02:56] LABS: Glucose 566 mg/dL (74-99)
[2021-09-20 03:04] VITALS: BP 131/68; PULSE 88; RESP 18
[2021-09-20] MEDS ORDERED: INSULIN REGULAR 100 UNIT/ML VIAL (IV) IV ONE (03:10)
== END 2021-09-20 04:35 | disposition home or self-care (01) ==
LOC: EC 22:13
DX: N20.0 Calculus of kidney (principal); G89.29 Other chronic pain; E11.9 Type 2 diabetes mellitus without complications; I10 Essential (primary) hypertension; K21.9 Gastro-esophageal reflux disease without esophagitis; E78.5 Hyperlipidemia, unspecified; F31.9 Bipolar disorder, unspecified; F41.9 Anxiety disorder, unspecified; F17.200 Nicotine dependence, unspecified, uncomplicated; Z79.4 Long term (current) use of insulin; Z79.84 Long term (current) use of oral hypoglycemic drugs; Z79.899 Other long term (current) drug therapy
CPT/HCPCS: 36415; 80053; 82150; 83690; 85025; 81001; 99284; 96374; 96375 ×4; 96361; J0780; J1170; J1885; C9113

== ENCOUNTER 2021-09-22 22:58 | Emergency (ER) | payer BC, OTHER ==
[2021-09-22 23:35] VITALS: TEMP 98.4
[2021-09-23 00:03] LABS: Appearance,Urine Clear (Clear); Bilirubin,Urine Negative (Negative); Blood,Urine Large (Negative); Budding Yeast,Urine Few /hpf; Color,Urine Yellow; Glucose,Urine (UA) 4+ (Negative); Ketones,Urine Negative (Negative); Leukocyte Esterase,Urine Negative (Negative); Nitrite,Urine Negative (Negative); PH, Urine 5.5 (5.0-8.0); Protein,Urine Negative (Negative); RBC,Urine >182 /hpf (0-5); Specific Gravity,Urine 1.034 (1.001-1.035); Squamous Epithelial Cell,Urine 2 /hpf (0-4); Urobilinogen,Urine <2.0 mg/dL (<2.0); WBC,Urine <1 /hpf (0-5)
[2021-09-23 01:20] LABS: Basophils # (A) 0.1 k/uL (0-0.2); Basophils % (A) 1 %; Eosinophils # (A) 0.3 k/uL (0-0.7); Eosinophils % (A) 3 %; HCT 45.3 % (34.0-46.0); HGB 14.7 gm/dL (11.4-16.0); Lymphocytes # (A) 4.3 k/uL (1.0-4.8); Lymphocytes % (A) 36 %; MCH 29.4 pg (25.0-35.0); MCHC 32.5 g/dL (31.0-37.0); MCV 90.4 fL (80.0-100.0); Mean Platelet Volume 7.7; Monocytes # (A) 0.7 k/uL (0-1.0); Monocytes % (A) 6 %; Neutrophils # (A) 6.3 k/uL (1.3-7.7); Neutrophils % (A) 53 %; Platelet Count 266 k/uL (150-450); RBC 5.01 m/uL (3.80-5.40); RDW 12.2 % (11.5-15.5); WBC 11.9 k/uL (3.8-10.6)
[2021-09-23 01:33] LABS: African American GFR (CKD) >90 (>60 ml/min/1.73 sqM); Anion Gap 14 mmol/L; Blood Urea Nitrogen 9 mg/dL (7-17); Calcium 9.4 mg/dL (8.4-10.2); Carbon Dioxide 16 mmol/L (22-30); Chloride 99 mmol/L (98-107); Non-African American GFR(CKD) >90 (>60 ml/min/1.73 sqM); Potassium 4.1 mmol/L (3.5-5.1); Sodium 129 mmol/L (137-145)
[2021-09-23 01:44] LABS: Glucose 593 mg/dL (74-99)
[2021-09-23] MEDS ORDERED: SODIUM CHLORIDE 0.9% 1,000 ML IV ONE (02:33)
[2021-09-23] MEDS ORDERED: INSULIN REGULAR 100 UNIT/ML VIAL (IV) SQ STA (02:33)
--- NOTE | 2021-09-23 03:55 | ED ---
Abdominal Pain HPI - General Chief Complaint: Abdominal Pain Stated Complaint: Abd Pain Time Seen by Provider: 09/23/21 00:48 Source: patient Mode of arrival: ambulatory - History of Present Illness Initial Comments: Patient's 46-year-old woman with history of multiple previous kidney stones. She states she is having identical pain and has a known kidney stone on the right side. She states that she is going to have lithotripsy on the following week. She is not having fever or chills. No definite hematuria noted. She has also having some nausea and vomiting in relation to the pain. MD Complaint: flank pain -: week(s) Location: R flank Radiation: none Migration to: no migration Severity: severe Quality: sharp Consistency: constant Improves With: nothing Worsens With: nothing Associated Symptoms: nausea, vomiting - Related Data Home Medications Medication Instructions Recorded Confirmed oxyCODONE-APAP 10-325MG [Percocet 1 tab PO Q6H PRN 08/29/17 04/21/20 10-325 mg] PARoxetine HCL [Paxil] 40 mg PO DAILY 03/12/18 04/21/20 Topiramate [Topamax] 100 mg PO BID 03/12/18 04/21/20 PARoxetine [Paxil] 20 mg PO DAILY 06/04/18 04/21/20 Atorvastatin [Lipitor] 40 mg PO DAILY 07/16/19 04/21/20 Insulin Glargine,Hum.rec.anlog 40 unit SQ HS 01/26/20 04/21/20 [Basaglar Kwikpen U-100] lisinopriL [Zestril] 10 mg PO DAILY 01/26/20 04/21/20 Montelukast [Singulair] 10 mg PO DAILY 02/09/20 04/21/20 ARIPiprazole [Abilify] 15 mg PO HS 04/04/20 04/21/20 Insulin Lispro [Admelog Solostar] 6 units SQ AC-TID 04/04/20 04/21/20 Mirtazapine 7.5 mg PO HS 04/04/20 04/21/20 OXcarbazepine [Trileptal] 300 mg PO BID 04/04/20 04/21/20 metFORMIN HCL [Glucophage] 1,000 mg PO BID 10/11/20 10/28/20 Loratadine 10 mg PO DAILY 04/21/20 04/21/20 Previous Rx's Medication Instructions Recorded SUMAtriptan succinate [Imitrex] 100 mg PO DAILY PRN tab 08/02/17 Ciprofloxacin HCl [Cipro] 500 mg PO Q12HR 1 Days #6 tab 05/27/20 Clindamycin Gel [Clindamycin 1 applic TOPICAL BID #1 tube 09/09/20 Phosphate 1% Gel] Fluconazole [Diflucan] 150 mg PO ONCE #1 tab 10/15/20 Ciprofloxacin HCl [Cipro] 500 mg PO Q12HR #14 tablet 12/11/20 Prochlorperazine [Compazine] 10 mg PO Q8H #30 tab 04/14/21 Cefdinir [Omnicef] 300 mg PO BID #14 capsule 07/21/21 Fluconazole [Diflucan] 150 mg PO DAILY #2 tab 07/21/21 Allergies Allergy/AdvReac Type Severity Reaction Status Date / Time bupropion HCl Allergy Rash/Hives Verified 09/22/21 23:35 [From Wellbutrin] divalproex sodium Allergy Unknown Verified 09/22/21 23:35 [From Depakote] fentanyl Allergy Swelling Verified 09/22/21 23:35 Iodinated Contrast Media Allergy Anaphylaxis Verified 09/22/21 23:35 [Iodinated Contrast Media - IV Dye] orange juice [[place]] Allergy Rash/Hives Verified 09/22/21 23:35 Sulfa (Sulfonamide Allergy Rash/Hives Verified 09/22/21 23:35 Antibiotics) Penicillins AdvReac Nausea & Verified 09/22/21 23:35 Vomiting Review of Systems ROS Statement: Those systems with pertinent positive or pertinent negative responses have been documented in the HPI. ROS Other: All systems not noted in ROS Statement are negative. Constitutional: Denies: fever, chills Respiratory: Denies: cough, dyspnea Cardiovascular: Denies: chest pain, palpitations Gastrointestinal: Reports: abdominal pain, nausea, vomiting. Denies: diarrhea, constipation, melena, hematochezia Genitourinary: Reports: hematuria. 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 History of Any Multi-Drug Resistant Organisms: ESBL Date of last positivie culture/infection: 05/14/17 MDRO Source:: ESBL URINE, Past Surgical History: Bladder Surgery, Section, Cholecystectomy, Hysterectomy, Orthopedic Surgery, Tubal Ligation Additional Past Surgical History / Comment(s): R ovarian cystectomy, laparoscopic surgery for L ovary that had attached to the bowel, D&C, numerous lithotripsies, nephroscopies, cystoscopies and stents to ureters-none in place at this time, L robotic pyeloplasty with post op infection around kidney which then required a picc line/later removed (pt states was not MRSA), L rotator cuff repair, L wrist tendon surgery, colonoscopy. Kidney stone removal. Past Anesthesia/Blood Transfusion Reactions: Family History of Problems w/ Anesthesia Additional Past Anesthesia/Blood Transfusion Reaction / Comment(s): dad-hard time waking up due to enzyme problems in liver Past Psychological History: ADD/ADHD, Anxiety, Bipolar, Depression, PTSD Smoking Status: Current every day smoker Past Alcohol Use History: None Reported Past Drug Use History: None Reported - Past Family History Brother(s) Family Medical History: Cancer Additional Family Medical History / Comment(s): testicular Father Family Medical History: Coronary Artery Disease (CAD), CVA/TIA, Diabetes Mellitus, Renal Disease Additional Family Medical History / Comment(s): GLAUCOMA,NEUROPATHY HAD TRIPLE CABG, at 56yrs from renal disease. Mother Family Medical History: Hyperlipidemia Additional Family Medical History / Comment(s): DDD, HAD 3 vessel CABG AGE 54. General Exam General appearance: alert, in no apparent distress Head exam: Present: atraumatic, normocephalic Eye exam: Present: normal appearance Respiratory exam: Present: normal lung sounds bilaterally Cardiovascular Exam: Present: regular rate, normal rhythm GI/Abdominal exam: Present: soft. Absent: distended, tenderness, guarding, re bound, rigid, mass Extremities exam: Present: normal inspection, normal capillary refill Back exam: Present: normal inspection, CVA tenderness (R). Absent: CVA tenderness (L) Neurological exam: Present: alert Skin exam: Present: warm, dry, intact, normal color. Absent: rash Course Vital Signs 09/22/21 09/23/21 09/23/21 23:32 04:17 06:08 Temperature 98.4 F Pulse Rate 98 71 78 Respiratory 19 18 20 Rate Blood Pressure 132/85 123/80 122/75 O2 Sat by Pulse 98 99 99 Oximetry Procedures - [place] Protocol (Time Out) Nurse: Michel Sheehan Medical Decision Making - Lab Data Result diagrams: 09/23/21 01:12 09/23/21 01:12 Lab Results 09/22/21 09/23/21 09/23/21 Range/Units 23:46 01:12 01:12 WBC 11.9 H (3.8-10.6) k/uL RBC 5.01 (3.80-5.40) m/uL Hgb 14.7 (11.4-16.0) gm/dL Hct 45.3 (34.0-46.0) % MCV 90.4 (80.0-100.0) fL MCH 29.4 (25.0-35.0) pg MCHC 32.5 (31.0-37.0) g/dL RDW 12.2 (11.5-15.5) % Plt Count 266 (150-450) k/uL MPV 7.7 Neutrophils % 53 % Lymphocytes % 36 % Monocytes % 6 % Eosinophils % 3 % Basophils % 1 % Neutrophils # 6.3 (1.3-7.7) k/uL Lymphocytes # 4.3 (1.0-4.8) k/uL Monocytes # 0.7 (0-1.0) k/uL Eosinophils # 0.3 (0-0.7) k/uL Basophils # 0.1 (0-0.2) k/uL Sodium 129 L (137-145) mmol/L Potassium 4.1 (3.5-5.1) mmol/L Chloride 99 (98-107) mmol/L Carbon Dioxide 16 L (22-30) mmol/L Anion Gap 14 mmol/L BUN 9 (7-17) mg/dL Creatinine 0.52 (0.52-1.04) mg/dL Est GFR (CKD-EPI)AfAm >90 (>60 ml/min/1.73 sqM) Est GFR (CKD-EPI)NonAf >90 (>60 ml/min/1.73 sqM) Glucose 593 H* (74-99) mg/dL POC Glucose (mg/dL) (75-99) mg/dL POC Glu Plasma Processing Technician ID Calcium 9.4 (8.4-10.2) mg/dL Urine Color Yellow Urine Appearance Clear (Clear) Urine pH 5.5 (5.0-8.0) Ur Specific [place] 1.034 (1.001-1.035) Urine Protein Negative (Negative) Urine Glucose (UA) 4+ H (Negative) Urine Ketones Negative (Negative) Urine Blood Large H (Negative) Urine Nitrite Negative (Negative) Urine Bilirubin Negative (Negative) Urine Urobilinogen <2.0 (<2.0) mg/dL Ur Leukocyte Esterase Negative (Negative) Urine RBC >182 H (0-5) /hpf Urine WBC <1 (0-5) /hpf Ur Squamous Epith Cells 2 (0-4) /hpf Urine Yeast (Bud[place]) Few H (None) /hpf 09/23/21 Range/Units 04:18 WBC (3.8-10.6) k/uL RBC (3.80-5.40) m/uL Hgb (11.4-16.0) gm/dL Hct (34.0-46.0) % MCV (80.0-100.0) fL MCH (25.0-35.0) pg MCHC (31.0-37.0) g/dL RDW (11.5-15.5) % Plt Count (150-450) k/uL MPV Neutrophils % % Lymphocytes % % Monocytes % % Eosinophils % % Basophils % % Neutrophils # (1.3-7.7) k/uL Lymphocytes # (1.0-4.8) k/uL Monocytes # (0-1.0) k/uL Eosinophils # (0-0.7) k/uL Basophils # (0-0.2) k/uL Sodium (137-145) mmol/L Potassium (3.5-5.1) mmol/L Chloride (98-107) mmol/L Carbon Dioxide (22-30) mmol/L Anion Gap mmol/L BUN (7-17) mg/dL Creatinine (0.52-1.04) mg/dL Est GFR (CKD-EPI)AfAm (>60 ml/min/1.73 sqM) Est GFR (CKD-EPI)NonAf (>60 ml/min/1.73 sqM) Glucose (74-99) mg/dL POC Glucose (mg/dL) 398 H (75-99) mg/dL POC Glu Plasma Processing Technician ID Brooke Valles Calcium (8.4-10.2) mg/dL Urine Color Urine Appearance (Clear) Urine pH (5.0-8.0) Ur Specific [place] (1.001-1.035) Urine Protein (Negative) Urine Glucose (UA) (Negative) Urine Ketones (Negative) Urine Blood (Negative) Urine Nitrite (Negative) Urine Bilirubin (Negative) Urine Urobilinogen (<2.0) mg/dL Ur Leukocyte Esterase (Negative) Urine RBC (0-5) /hpf Urine WBC (0-5) /hpf Ur Squamous Epith Cells (0-4) /hpf Urine Yeast (Budding) (None) /hpf Disposition Clinical Impression: Hyperglycemia due to diabetes mellitus, Flank pain, acute Disposition: HOME SELF-CARE Condition: Good Is patient prescribed a controlled substance at d/c from ED?: No Referrals: Elida Basurto MD [Primary Care Provider] - 1-2 days
[2021-09-23] MEDS ORDERED: MORPHINE SULFATE 4 MG/ML SYRINGE IV STA ×2 (04:13→05:43)
[2021-09-23 04:26] LABS: Glucose,Whole Blood 398 mg/dL (75-99)
[2021-09-23 06:16] VITALS: BP 122/75; PULSE 78; RESP 20
== END 2021-09-23 06:17 | disposition home or self-care (01) ==
LOC: EC 22:58
DX: E11.65 Type 2 diabetes mellitus with hyperglycemia (principal); I10 Essential (primary) hypertension; E78.5 Hyperlipidemia, unspecified; K21.9 Gastro-esophageal reflux disease without esophagitis; F31.9 Bipolar disorder, unspecified; F41.9 Anxiety disorder, unspecified; F90.9 Attention-deficit hyperactivity disorder, unspecified type; F17.200 Nicotine dependence, unspecified, uncomplicated; Z79.4 Long term (current) use of insulin; Z79.84 Long term (current) use of oral hypoglycemic drugs; Z79.899 Other long term (current) drug therapy
CPT/HCPCS: 36415; 80048; 85025; 81001; 99284; 96374; 96376; 96361; J2270

== ENCOUNTER 2021-10-15 00:55 | Emergency (ER) | payer BC, OTHER ==
[2021-10-15 01:01] VITALS: BP 115/77; PULSE 95; RESP 18; TEMP 98.1
[2021-10-15] MEDS ORDERED: MORPHINE SULFATE 4 MG/ML SYRINGE IV STA ×2 (01:16→04:02)
[2021-10-15] MEDS ORDERED: SODIUM CHLORIDE 0.9% 1,000 ML IV STA (01:16)
[2021-10-15] MEDS ORDERED: ONDANSETRON ODT 8 MG TAB.RAPDIS PO STA (01:16)
--- NOTE | 2021-10-15 01:29 | ED ---
General Adult HPI - General Source: patient Mode of arrival: ambulatory Limitations: no limitations <Louie Odell - Last Filed: 10/15/21 01:26> <Rafat Churchill - Last Filed: 10/15/21 04:04> - General Chief complaint: Back Pain/Injury Stated complaint: Flank Pain Time Seen by Provider: 10/15/21 01:14 - History of Present Illness Initial comments: This is a pleasant 46-year-old female with a history of insulin-controlled diabetes mellitus and multiple recurrent kidney stones. Patient states she has a large right-sided kidney stone and supposed to have a procedure done at [facility] in [place]. However she states she could not get it done last week as her blood sugars under control. She states that her about diabetes medications were switched last week. Patient is complaining of the right flank pain. At that word when the procedure will take place. Patient is having some hematuria. Flank pain consistent with the previous ureteral stone pain that the patient has had in the past. She has had some vomiting. Denies any fever or chills. No shortness breath or chest pain. No vaginal discharge. No chance of . No headache, no fever or chills, no changes in vision or hearing, no sore throat or difficulty with speech, no neck pain, no chest pain or shortness of breath, no change bowel movements, no numbness or tingling, no extremity pain, no skin rashes or lesions. (Louie Odell) - Related Data Home Medications Medication Instructions Recorded Confirmed oxyCODONE-APAP 10-325MG [Percocet 1 tab PO Q6H PRN 08/29/17 04/21/20 10-325 mg] PARoxetine HCL [Paxil] 40 mg PO DAILY 03/12/18 04/21/20 Topiramate [Topamax] 100 mg PO BID 03/12/18 04/21/20 PARoxetine [Paxil] 20 mg PO DAILY 06/04/18 04/21/20 Atorvastatin [Lipitor] 40 mg PO DAILY 07/16/19 04/21/20 Insulin Glargine,Hum.rec.anlog 40 unit SQ HS 01/26/20 04/21/20 [Basaglar Kwikpen U-100] lisinopriL [Zestril] 10 mg PO DAILY 01/26/20 04/21/20 Montelukast [Singulair] 10 mg PO DAILY 02/09/20 04/21/20 ARIPiprazole [Abilify] 15 mg PO HS 04/04/20 04/21/20 Insulin Lispro [Admelog Solostar] 6 units SQ AC-TID 04/04/20 04/21/20 Mirtazapine 7.5 mg PO HS 04/04/20 04/21/20 OXcarbazepine [Trileptal] 300 mg PO BID 04/04/20 04/21/20 metFORMIN HCL [Glucophage] 1,000 mg PO BID 04/04/20 04/21/20 Loratadine 10 mg PO DAILY 04/21/20 04/21/20 Previous Rx's Medication Instructions Recorded SUMAtriptan succinate [Imitrex] 100 mg PO DAILY PRN tab 08/02/17 Ciprofloxacin HCl [Cipro] 500 mg PO Q12HR 1 Days #6 tab 05/27/20 Clindamycin Gel [Clindamycin 1 applic TOPICAL BID #1 tube 09/09/20 Phosphate 1% Gel] Fluconazole [Diflucan] 150 mg PO ONCE #1 tab 10/15/20 Ciprofloxacin HCl [Cipro] 500 mg PO Q12HR #14 tablet 12/11/20 Prochlorperazine [Compazine] 10 mg PO Q8H #30 tab 04/14/21 Cefdinir [Omnicef] 300 mg PO BID #14 capsule 07/21/21 Fluconazole [Diflucan] 150 mg PO DAILY #2 tab 07/21/21 Allergies Allergy/AdvReac Type Severity Reaction Status Date / Time bupropion HCl Allergy Rash/Hives Verified 10/15/21 01:01 [From Wellbutrin] divalproex sodium Allergy Unknown Verified 10/15/21 01:01 [From Depakote] fentanyl Allergy Swelling Verified 10/15/21 01:01 Iodinated Contrast Media Allergy Anaphylaxis Verified 10/15/21 01:01 [Iodinated Contrast Media - IV Dye] orange juice [[place]] Allergy Rash/Hives Verified 10/15/21 01:01 Sulfa (Sulfonamide Allergy Rash/Hives Verified 10/15/21 01:01 Antibiotics) Penicillins AdvReac Nausea & Verified 10/15/21 01:01 Vomiting Review of Systems ROS Other: All systems not noted in ROS Statement are negative. <HillLouie - Last Filed: 10/15/21 01:26> ROS Other: All systems not noted in ROS Statement are negative. <GarretfelipeRafat - Last Filed: 10/15/21 04:04> ROS Statement: Those systems with pertinent positive or pertinent negative responses have been documented in the HPI. 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 History of Any Multi-Drug Resistant Organisms: ESBL Date of last positivie culture/infection: 05/14/17 MDRO Source:: ESBL URINE, Past Surgical History: Bladder Surgery, Section, Cholecystectomy, Hy sterectomy, Orthopedic Surgery, Tubal Ligation Additional Past Surgical History / Comment(s): R ovarian cystectomy, laparoscopic surgery for L ovary that had attached to the bowel, D&C, numerous lithotripsies, nephroscopies, cystoscopies and stents to ureters-none in place at this time, L robotic pyeloplasty with post op infection around kidney which then required a picc line/later removed (pt states was not MRSA), L rotator cuff repair, L wrist tendon surgery, colonoscopy. Kidney stone removal. Past Anesthesia/Blood Transfusion Reactions: Family History of Problems w/ Anesthesia Additional Past Anesthesia/Blood Transfusion Reaction / Comment(s): dad-hard time waking up due to enzyme problems in liver Past Psychological History: ADD/ADHD, Anxiety, Bipolar, Depression, PTSD Smoking Status: Current every day smoker Past Alcohol Use History: None Reported Past Drug Use History: None Reported - Past Family History Brother(s) Family Medical History: Cancer Additional Family Medical History / Comment(s): testicular Father Family Medical History: Coronary Artery Disease (CAD), CVA/TIA, Diabetes Mellitu s, Renal Disease Additional Family Medical History / Comment(s): GLAUCOMA,NEUROPATHY HAD TRIPLE CABG, at 56yrs from renal disease. Mother Family Medical History: Hyperlipidemia Additional Family Medical History / Comment(s): DDD, HAD 3 vessel CABG AGE 54. <Louie Odell - Last Filed: 10/15/21 01:26> General Exam Limitations: no limitations General appearance: alert, in distress Head exam: Present: atraumatic, normocephalic, normal inspection Eye exam: Present: normal appearance, PERRL, EOMI. Absent: scleral icterus, conjunctival injection, periorbital swelling ENT exam: Present: normal exam, mucous membranes moist Neck exam: Present: normal inspection, full ROM. Absent: tenderness, meningismus, lymphadenopathy Respiratory exam: Present: normal lung sounds bilaterally. Absent: respiratory distress, wheezes, rales, rhonchi, stridor Cardiovascular Exam: Present: regular rate, normal rhythm, normal heart sounds. Absent: systolic murmur, diastolic murmur, rubs, gallop, clicks GI/Abdominal exam: Present: soft, normal bowel sounds. Absent: distended, tenderness, guarding, rebound, rigid Extremities exam: Present: normal inspection, full ROM, normal capillary refill. Absent: tenderness, pedal edema, joint swelling, calf tenderness Back exam: Present: normal inspection, CVA tenderness (R). Absent: full ROM, tenderness, CVA tenderness (L), muscle spasm, paraspinal tenderness, vertebral tenderness, rash noted Neurological exam: Present: alert, oriented X3, CN II-XII intact Psychiatric exam: Present: normal affect, normal mood Skin exam: Present: warm, dry, intact, normal color. Absent: rash <Louie Odell - Last Filed: 10/15/21 01:26> - General Exam Comments Initial Comments: Vital signs reviewed, vital signs stable, patient afebrile. Patient does not appear to be ill or toxic. (Louie Odell) Course Vital Signs 10/15/21 00:58 Temperature 98.1 F Pulse Rate 95 Respiratory 18 Rate Blood Pressure 115/77 O2 Sat by Pulse 100 Oximetry Medical Decision Making <Louie Odell - Last Filed: 10/15/21 01:26> - Lab Data Result diagrams: 10/15/21 02:00 10/15/21 02:00 <Rafat Churchill - Last Filed: 10/15/21 04:04> - Medical Decision Making Patient presents with recurrent flank pain consistent with ureterolithiasis. Patient has had multiple past kidney stones in the past. Upcoming urological intervention at [facility] pending per patient. Some nausea which the patient is related to pain. Patient states that her blood sugars have been running better than normal as her medication was switched last week. The case was discussed in detail with ED attending physician. Presentation, findings, treatment plan discussed in detail. Dr. Churchill Patient was told to return to the ER for any signs or symptoms worsen. Told to return immediately if any other problems arise. All questions answered. Treatment plan discussed. Patient in agreement Every effort has been made to ensure accuracy of this dictation. However, due to the limitations of electronic medical records and dictation devices, errors in charting still occur. (Louie Odell) - Lab Data Lab Results 10/15/21 10/15/21 10/15/21 Range/Units 02:00 02:00 02:00 WBC 13.0 H (3.8-10.6) k/uL RBC 4.90 (3.80-5.40) m/uL Hgb 15.2 (11.4-16.0) gm/dL Hct 43.1 (34.0-46.0) % MCV 88.0 (80.0-100.0) fL MCH 30.9 (25.0-35.0) pg MCHC 35.1 (31.0-37.0) g/dL RDW 12.9 (11.5-15.5) % Plt Count 311 (150-450) k/uL MPV 7.2 Neutrophils % 51 % Lymphocytes % 40 % Monocytes % 4 % Eosinophils % 2 % Basophils % 1 % Neutrophils # 6.7 (1.3-7.7) k/uL Lymphocytes # 5.2 H (1.0-4.8) k/uL Monocytes # 0.6 (0-1.0) k/uL Eosinophils # 0.2 (0-0.7) k/uL Basophils # 0.1 (0-0.2) k/uL Sodium (137-145) mmol/L Potassium (3.5-5.1) mmol/L Chloride (98-107) mmol/L Carbon Dioxide (22-30) mmol/L Anion Gap mmol/L BUN (7-17) mg/dL Creatinine (0.52-1.04) mg/dL Est GFR (CKD-EPI)AfAm (>60 ml/min/1.73 sqM) Est GFR (CKD-EPI)NonAf (>60 ml/min/1.73 sqM) Glucose (74-99) mg/dL Calcium (8.4-10.2) mg/dL Total Bilirubin (0.2-1.3) mg/dL AST (14-36) U/L ALT (4-34) U/L Alkaline Phosphatase (38-126) U/L Total Protein (6.3-8.2) g/dL Albumin (3.5-5.0) g/dL Lipase (23-300) U/L Urine Color Light Red Urine Appearance Clear (Clear) Urine pH 5.5 (5.0-8.0) Ur Specific [place] 1.036 H (1.001-1.035) Urine Protein Trace H (Negative) Urine Glucose (UA) 4+ H (Negative) Urine Ketones Negative (Negative) Urine Blood Large H (Negative) Urine Nitrite Negative (Negative) Urine Bilirubin Negative (Negative) Urine Urobilinogen <2.0 (<2.0) mg/dL Ur Leukocyte Esterase Negative (Negative) Urine RBC >182 H (0-5) /hpf Urine WBC 5 (0-5) /hpf Ur Squamous Epith Cells 2 (0-4) /hpf Urine HCG, Qual Not Detected (Not Detectd) 10/15/21 Range/Units 02:00 WBC (3.8-10.6) k/uL RBC (3.80-5.40) m/uL Hgb (11.4-16.0) gm/dL Hct (34.0-46.0) % MCV (80.0-100.0) fL MCH (25.0-35.0) pg MCHC (31.0-37.0) g/dL RDW (11.5-15.5) % Plt Count (150-450) k/uL MPV Neutrophils % % Lymphocytes % % Monocytes % % Eosinophils % % Basophils % % Neutrophils # (1.3-7.7) k/uL Lymphocytes # (1.0-4.8) k/uL Monocytes # (0-1.0) k/uL Eosinophils # (0-0.7) k/uL Basophils # (0-0.2) k/uL Sodium 136 L (137-145) mmol/L Potassium 3.8 (3.5-5.1) mmol/L Chloride 105 (98-107) mmol/L Carbon Dioxide 22 (22-30) mmol/L Anion Gap 9 mmol/L BUN 13 (7-17) mg/dL Creatinine 0.57 (0.52-1.04) mg/dL Est GFR (CKD-EPI)AfAm >90 (>60 ml/min/1.73 sqM) Est GFR (CKD-EPI)NonAf >90 (>60 ml/min/1.73 sqM) Glucose 138 H (74-99) mg/dL Calcium 9.3 (8.4-10.2) mg/dL Total Bilirubin 0.8 (0.2-1.3) mg/dL AST 23 (14-36) U/L ALT 24 (4-34) U/L Alkaline Phosphatase 92 (38-126) U/L Total Protein 6.9 (6.3-8.2) g/dL Albumin 4.1 (3.5-5.0) g/dL Lipase 299 (23-300) U/L Urine Color Urine Appearance (Clear) Urine pH (5.0-8.0) Ur Specific [place] (1.001-1.035) Urine Protein (Negative) Urine Glucose (UA) (Negative) Urine Ketones (Negative) Urine Blood (Negative) Urine Nitrite (Negative) Urine Bilirubin (Negative) Urine Urobilinogen (<2.0) mg/dL Ur Leukocyte Esterase (Negative) Urine RBC (0-5) /hpf Urine WBC (0-5) /hpf Ur Squamous Epith Cells (0-4) /hpf Urine HCG, Qual (Not Detectd) Disposition <Louie Odell - Last Filed: 10/15/21 01:26> Is patient prescribed a controlled substance at d/c from ED?: No <Rafat Churchill - Last Filed: 10/15/21 04:04> Clinical Impression: Flank pain, acute Disposition: HOME SELF-CARE Condition: Good Instructions (If sedation given, give patient instructions): Flank Pain (ED) Referrals: Elida Basurto MD [Primary Care Provider] - 1-2 days
--- NOTE | 2021-10-15 02:48 | XR ---
EXAMINATION TYPE: XR KUB DATE OF EXAM: 10/15/2021 COMPARISON: 07/21/2021 HISTORY: Abdominal pain TECHNIQUE: 2 views upright FINDINGS: There is no sign of intestinal obstruction or pneumoperitoneum. Fecal pattern is normal. Th ere are clips from cholecystectomy. Lung bases are clear. No calcification seen over the kidneys. IMPRESSION: Nonacute abdomen. No adverse change.
[2021-10-15 02:50] LABS: ALT 24 U/L (4-34); AST 23 U/L (14-36); African American GFR (CKD) >90 (>60 ml/min/1.73 sqM); Albumin 4.1 g/dL (3.5-5.0); Alkaline Phosphatase 92 U/L (38-126); Anion Gap 9 mmol/L; Blood Urea Nitrogen 13 mg/dL (7-17); Calcium 9.3 mg/dL (8.4-10.2); Carbon Dioxide 22 mmol/L (22-30); Chloride 105 mmol/L (98-107); Glucose 138 mg/dL (74-99); Lipase 299 U/L (23-300); Non-African American GFR(CKD) >90 (>60 ml/min/1.73 sqM); Potassium 3.8 mmol/L (3.5-5.1); Sodium 136 mmol/L (137-145); Total Bilirubin 0.8 mg/dL (0.2-1.3); Total Protein 6.9 g/dL (6.3-8.2)
[2021-10-15 02:53] LABS: Basophils # (A) 0.1 k/uL (0-0.2); Basophils % (A) 1 %; Eosinophils # (A) 0.2 k/uL (0-0.7); Eosinophils % (A) 2 %; HCT 43.1 % (34.0-46.0); HGB 15.2 gm/dL (11.4-16.0); Lymphocytes # (A) 5.2 k/uL (1.0-4.8); Lymphocytes % (A) 40 %; MCH 30.9 pg (25.0-35.0); MCHC 35.1 g/dL (31.0-37.0); Mean Platelet Volume 7.2; Monocytes # (A) 0.6 k/uL (0-1.0); Monocytes % (A) 4 %; Neutrophils # (A) 6.7 k/uL (1.3-7.7); Neutrophils % (A) 51 %; Platelet Count 311 k/uL (150-450); RDW 12.9 % (11.5-15.5)
[2021-10-15 03:34] LABS: Appearance,Urine Clear (Clear); Bilirubin,Urine Negative (Negative); Blood,Urine Large (Negative); Color,Urine Light Red; Glucose,Urine (UA) 4+ (Negative); Ketones,Urine Negative (Negative); Leukocyte Esterase,Urine Negative (Negative); Nitrite,Urine Negative (Negative); PH, Urine 5.5 (5.0-8.0); Protein,Urine Trace (Negative); RBC,Urine >182 /hpf (0-5); Specific Gravity,Urine 1.036 (1.001-1.035); Squamous Epithelial Cell,Urine 2 /hpf (0-4); Urobilinogen,Urine <2.0 mg/dL (<2.0); WBC,Urine 5 /hpf (0-5)
[2021-10-15] MEDS ORDERED: diphenhydrAMINE 50 MG/ML 1 ML VIAL IVP STA (04:02)
== END 2021-10-15 04:15 | disposition home or self-care (01) ==
LOC: EC 00:55
DX: R10.9 Unspecified abdominal pain (principal); E11.9 Type 2 diabetes mellitus without complications; I10 Essential (primary) hypertension; E78.5 Hyperlipidemia, unspecified; K21.9 Gastro-esophageal reflux disease without esophagitis; F31.9 Bipolar disorder, unspecified; F41.9 Anxiety disorder, unspecified; F17.200 Nicotine dependence, unspecified, uncomplicated; Z79.4 Long term (current) use of insulin; Z79.84 Long term (current) use of oral hypoglycemic drugs; Z79.899 Other long term (current) drug therapy
CPT/HCPCS: 36415; 74018; 80053; 81001; 81025; 83690; 85025; 96361; 96374; 96375; 96376; 99284

== ENCOUNTER 2021-10-20 | Emergency (ER) | payer BC, OTHER ==
[2021-10-20 00:08] VITALS: BP 128/81; PULSE 100; RESP 16; TEMP 96.7
[2021-10-20 00:34] LABS: Basophils # (A) 0.1 k/uL (0-0.2); Basophils % (A) 1 %; Eosinophils # (A) 0.3 k/uL (0-0.7); Eosinophils % (A) 2 %; HCT 44.9 % (34.0-46.0); HGB 15.8 gm/dL (11.4-16.0); Lymphocytes # (A) 5.4 k/uL (1.0-4.8); Lymphocytes % (A) 43 %; MCH 31.3 pg (25.0-35.0); MCHC 35.1 g/dL (31.0-37.0); MCV 89.2 fL (80.0-100.0); Mean Platelet Volume 7.2; Monocytes # (A) 0.5 k/uL (0-1.0); Monocytes % (A) 4 %; Neutrophils # (A) 6.1 k/uL (1.3-7.7); Neutrophils % (A) 48 %; Platelet Count 334 k/uL (150-450); RBC 5.04 m/uL (3.80-5.40); RDW 12.9 % (11.5-15.5); WBC 12.6 k/uL (3.8-10.6)
[2021-10-20 00:42] LABS: ALT 27 U/L (4-34); AST 23 U/L (14-36); African American GFR (CKD) >90 (>60 ml/min/1.73 sqM); Albumin 4.2 g/dL (3.5-5.0); Alkaline Phosphatase 104 U/L (38-126); Anion Gap 8 mmol/L; Blood Urea Nitrogen 11 mg/dL (7-17); Calcium 9.3 mg/dL (8.4-10.2); Carbon Dioxide 26 mmol/L (22-30); Chloride 100 mmol/L (98-107); Glucose 257 mg/dL (74-99); Non-African American GFR(CKD) >90 (>60 ml/min/1.73 sqM); Potassium 4.2 mmol/L (3.5-5.1); Sodium 134 mmol/L (137-145); Total Bilirubin 0.7 mg/dL (0.2-1.3); Total Protein 7.2 g/dL (6.3-8.2)
[2021-10-20 00:48] LABS: Appearance,Urine Clear (Clear); Bacteria,Urine Rare /hpf; Bilirubin,Urine Negative (Negative); Blood,Urine Large (Negative); Color,Urine Yellow; Glucose,Urine (UA) 4+ (Negative); Ketones,Urine Trace (Negative); Leukocyte Esterase,Urine Negative (Negative); Nitrite,Urine Negative (Negative); PH, Urine 5.5 (5.0-8.0); Protein,Urine Trace (Negative); RBC,Urine >182 /hpf (0-5); Specific Gravity,Urine 1.023 (1.001-1.035); Squamous Epithelial Cell,Urine 3 /hpf (0-4); Urobilinogen,Urine <2.0 mg/dL (<2.0); WBC,Urine 34 /hpf (0-5)
[2021-10-20] MEDS ORDERED: KETOROLAC 15 MG/ML 1 ML VIAL IM STA (04:38)
[2021-10-20] MEDS ORDERED: CEPHALEXIN 500MG STARTER PACK 4 CAP BTL PO STA (04:38)
--- NOTE | 2021-10-20 04:44 | ED ---
General Adult HPI - General Chief complaint: Abdominal Pain Stated complaint: RT side kidney stone Source: patient Mode of arrival: ambulatory Limitations: no limitations - History of Present Illness Initial comments: Leilani is a 46-year-old female very well-known to our ER for frequent visits for flank pain. Patient presents today reporting recurrent right-sided flank pain. Patient reports she has a known kidney stone is supposed to have procedure. Patient states she is supposed to have this procedure 3 weeks ago but her glucose was uncontrolled and the procedure was canceled. Patient reports that since Sunday she's been having worsening pain in her right flank. Denies fevers or chills nausea or vomiting. - Related Data Home Medications Medication Instructions Recorded Confirmed oxyCODONE-APAP 10-325MG [Percocet 1 tab PO Q6H PRN 08/29/17 04/21/20 10-325 mg] PARoxetine HCL [Paxil] 40 mg PO DAILY 03/12/18 04/21/20 Topiramate [Topamax] 100 mg PO BID 03/12/18 04/21/20 PARoxetine [Paxil] 20 mg PO DAILY 06/04/18 04/21/20 Atorvastatin [Lipitor] 40 mg PO DAILY 07/16/19 04/21/20 Insulin Glargine,Hum.rec.anlog 40 unit SQ HS 01/26/20 04/21/20 [Basaglar Kwikpen U-100] lisinopriL [Zestril] 10 mg PO DAILY 01/26/20 04/21/20 Montelukast [Singulair] 10 mg PO DAILY 02/09/20 04/21/20 ARIPiprazole [Abilify] 15 mg PO HS 04/04/20 04/21/20 Insulin Lispro [Admelog Solostar] 6 units SQ AC-TID 04/04/20 04/21/20 Mirtazapine 7.5 mg PO HS 04/04/20 04/21/20 OXcarbazepine [Trileptal] 300 mg PO BID 04/04/20 04/21/20 metFORMIN HCL [Glucophage] 1,000 mg PO BID 04/04/20 04/21/20 Loratadine 10 mg PO DAILY 04/21/20 04/21/20 Previous Rx's Medication Instructions Recorded SUMAtriptan succinate [Imitrex] 100 mg PO DAILY PRN tab 08/02/17 Ciprofloxacin HCl [Cipro] 500 mg PO Q12HR 1 Days #6 tab 05/27/20 Clindamycin Gel [Clindamycin 1 applic TOPICAL BID #1 tube 09/09/20 Phosphate 1% Gel] Fluconazole [Diflucan] 150 mg PO ONCE #1 tab 10/15/20 Ciprofloxacin HCl [Cipro] 500 mg PO Q12HR #14 tablet 12/11/20 Prochlorperazine [Compazine] 10 mg PO Q8H #30 tab 04/14/21 Cefdinir [Omnicef] 300 mg PO BID #14 capsule 07/21/21 Fluconazole [Diflucan] 150 mg PO DAILY #2 tab 07/21/21 Allergies Allergy/AdvReac Type Severity Reaction Status Date / Time bupropion HCl Allergy Rash/Hives Verified 10/20/21 00:09 [From Wellbutrin] divalproex sodium Allergy Unknown Verified 10/20/21 00:09 [From Depakote] fentanyl Allergy Swelling Verified 10/20/21 00:09 Iodinated Contrast Media Allergy Anaphylaxis Verified 10/20/21 00:09 [Iodinated Contrast Media - IV Dye] orange juice [[place]] Allergy Rash/Hives Verified 10/20/21 00:09 Sulfa (Sulfonamide Allergy Rash/Hives Verified 10/20/21 00:09 Antibiotics) Penicillins AdvReac Nausea & Verified 10/20/21 00:09 Vomiting Review of Systems ROS Statement: Those systems with pertinent positive or pertinent negative responses have been documented in the HPI. ROS Other: All systems not noted in ROS Statement are negative. 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 History of Any Multi-Drug Resistant Organisms: ESBL Date of last positivie culture/infection: 05/14/17 MDRO Source:: ESBL URINE, Past Surgical History: Bladder Surgery, Section, Cholecystectomy, Hysterectomy, Orthopedic Surgery, Tubal Ligation Additional Past Surgical History / Comment(s): R ovarian cystectomy, laparoscopic surgery for L ovary that had attached to the bowel, D&C, numerous lithotripsies, nephroscopies, cystoscopies and stents to ureters-none in place at this time, L robotic pyeloplasty with post op infection around kidney which then required a picc line/later removed (pt states was not MRSA), L rotator cuff repair, L wrist tendon surgery, colonoscopy. Kidney stone removal. Past Anesthesia/Blood Transfusion Reactions: Family History of Problems w/ Anesthesia Additional Past Anesthesia/Blood Transfusion Reaction / Comment(s): dad-hard time waking up due to enzyme problems in liver Past Psychological History: ADD/ADHD, Anxiety, Bipolar, Depression, PTSD Smoking Status: Current every day smoker Past Alcohol Use History: None Reported Past Drug Use History: None Reported - Past Family History Brother(s) Family Medical History: Cancer Additional Family Medical History / Comment(s): testicular Father Family Medical History: Coronary Artery Disease (CAD), CVA/TIA, Diabetes Mellitus, Renal Disease Additional Family Medical History / Comment(s): GLAUCOMA,NEUROPATHY HAD TRIPLE C ABG, at 56yrs from renal disease. Mother Family Medical History: Hyperlipidemia Additional Family Medical History / Comment(s): DDD, HAD 3 vessel CABG AGE 54. General Exam - General Exam Comments Initial Comments: Physical Exam GENERAL: Patient sleeping comfortably in ER bed upon my evaluation HENT: Normocephalic, Atraumatic. EYES: PERRL, EOMI PULMONARY: Unlabored respirations. CARDIOVASCULAR: RRR Warm and well perfused extremities ABDOMEN: Non-distended SKIN: No rashes or bruising : Deferred NEUROLOGIC: Alert and oriented Normal speech MUSCULOSKELETAL: Moving all extremities with no apparent injury PSYCHIATRIC: No SI/HI Limitations: no limitations Course Vital Signs 10/20/21 00:04 Temperature 96.7 F L Pulse Rate 100 Respiratory 16 Rate Blood Pressure 128/81 O2 Sat by Pulse 100 Oximetry Medical Decision Making - Medical Decision Making The patient was seen and evaluated history was obtained from patient, urinalysis does reveal urinary tract infection we will start her on Keflex. Patient's pain was treated with Toradol and she was discharged home and advised to follow with her urologist. - Lab Data Result diagrams: 10/20/21 00:15 10/20/21 00:15 Lab Results 10/20/21 10/20/21 10/20/21 Range/Units 00:15 00:15 00:15 WBC 12.6 H (3.8-10.6) k/uL RBC 5.04 (3.80-5.40) m/uL Hgb 15.8 (11.4-16.0) gm/dL Hct 44.9 (34.0-46.0) % MCV 89.2 (80.0-100.0) fL MCH 31.3 (25.0-35.0) pg MCHC 35.1 (31.0-37.0) g/dL RDW 12.9 (11.5-15.5) % Plt Count 334 (150-450) k/uL MPV 7.2 Neutrophils % 48 % Lymphocytes % 43 % Monocytes % 4 % Eosinophils % 2 % Basophils % 1 % Neutrophils # 6.1 (1.3-7.7) k/uL Lymphocytes # 5.4 H (1.0-4.8) k/uL Monocytes # 0.5 (0-1.0) k/uL Eosinophils # 0.3 (0-0.7) k/uL Basophils # 0.1 (0-0.2) k/uL Sodium 134 L (137-145) mmol/L Potassium 4.2 (3.5-5.1) mmol/L Chloride 100 (98-107) mmol/L Carbon Dioxide 26 (22-30) mmol/L Anion Gap 8 mmol/L BUN 11 (7-17) mg/dL Creatinine 0.61 (0.52-1.04) mg/dL Est GFR (CKD-EPI)AfAm >90 (>60 ml/min/1.73 sqM) Est GFR (CKD-EPI)NonAf >90 (>60 ml/min/1.73 sqM) Glucose 257 H (74-99) mg/dL Calcium 9.3 (8.4-10.2) mg/dL Total Bilirubin 0.7 (0.2-1.3) mg/dL AST 23 (14-36) U/L ALT 27 (4-34) U/L Alkaline Phosphatase 104 (38-126) U/L Total Protein 7.2 (6.3-8.2) g/dL Albumin 4.2 (3.5-5.0) g/dL Urine Color Yellow Urine Appearance Clear (Clear) Urine pH 5.5 (5.0-8.0) Ur Specific [place] 1.023 (1.001-1.035) Urine Protein Trace H (Negative) Urine Glucose (UA) 4+ H (Negative) Urine Ketones Trace H (Negative) Urine Blood Large H (Negative) Urine Nitrite Negative (Negative) Urine Bilirubin Negative (Negative) Urine Urobilinogen <2.0 (<2.0) mg/dL Ur Leukocyte Esterase Negative (Negative) Urine RBC >182 H (0-5) /hpf Urine WBC 34 H (0-5) /hpf Ur Squamous Epith Cells 3 (0-4) /hpf Urine Bacteria Rare H (None) /hpf Disposition Clinical Impression: Right flank pain Disposition: HOME SELF-CARE Condition: Stable Is patient prescribed a controlled substance at d/c from ED?: No Referrals: Elida Basurto MD [Primary Care Provider] - 1-2 days
== END 2021-10-20 05:24 | disposition home or self-care (01) ==
LOC: EC
DX: R10.9 Unspecified abdominal pain (principal); E11.9 Type 2 diabetes mellitus without complications; E78.5 Hyperlipidemia, unspecified; I10 Essential (primary) hypertension; F31.9 Bipolar disorder, unspecified; F41.9 Anxiety disorder, unspecified; K21.9 Gastro-esophageal reflux disease without esophagitis; F17.200 Nicotine dependence, unspecified, uncomplicated; Z79.4 Long term (current) use of insulin; Z79.84 Long term (current) use of oral hypoglycemic drugs; Z79.899 Other long term (current) drug therapy; Z90.49 Acquired absence of other specified parts of digestive tract
CPT/HCPCS: 36415; 80053; 85025; 81001; 87086; 99284; 96372; J1885

== ENCOUNTER 2021-11-07 22:38 | Emergency (ER) | payer BC, OTHER ==
[2021-11-07 23:10] VITALS: BP 128/81; PULSE 119; RESP 20; TEMP 98.4
[2021-11-07 23:50] LABS: Appearance,Urine Clear (Clear); Bilirubin,Urine Negative (Negative); Blood,Urine Large (Negative); Color,Urine Light Red; Glucose,Urine (UA) 4+ (Negative); Ketones,Urine Negative (Negative); Leukocyte Esterase,Urine Negative (Negative); Nitrite,Urine Negative (Negative); PH, Urine 5.5 (5.0-8.0); Protein,Urine Trace (Negative); RBC,Urine >182 /hpf (0-5); Specific Gravity,Urine 1.036 (1.001-1.035); Squamous Epithelial Cell,Urine 1 /hpf (0-4); Urobilinogen,Urine <2.0 mg/dL (<2.0); WBC,Urine <1 /hpf (0-5)
== END 2021-11-08 03:54 | disposition left against medical advice (07) ==
LOC: EC 22:38
DX: Z53.21 Procedure and treatment not carried out due to patient leaving prior to being seen by health care provider (principal)
CPT/HCPCS: 81001; 99499

== ENCOUNTER 2021-11-10 22:45 | Emergency (ER) | payer BC, OTHER ==
[2021-11-10 23:00] VITALS: RESP 18; TEMP 98
[2021-11-11 00:52] LABS: Appearance,Urine Clear (Clear); Bilirubin,Urine Negative (Negative); Blood,Urine Large (Negative); Color,Urine Yellow; Glucose,Urine (UA) 4+ (Negative); Ketones,Urine Negative (Negative); Leukocyte Esterase,Urine Negative (Negative); Nitrite,Urine Negative (Negative); PH, Urine 5.5 (5.0-8.0); Protein,Urine Negative (Negative); RBC,Urine >182 /hpf (0-5); Squamous Epithelial Cell,Urine 2 /hpf (0-4); Urobilinogen,Urine <2.0 mg/dL (<2.0); WBC,Urine 3 /hpf (0-5)
[2021-11-11] MEDS ORDERED: SODIUM CHLORIDE 0.9% 1,000 ML IV STA (03:33)
[2021-11-11] MEDS ORDERED: SODIUM CHLORIDE 0.9% 500 ML 500 ML IV STA (03:33)
[2021-11-11] MEDS ORDERED: PROCHLORPERAZINE INJ 10 MG/2 ML VIAL IVP STA (03:34)
[2021-11-11] MEDS ORDERED: diphenhydrAMINE 50 MG/ML 1 ML VIAL IVP STA (03:34)
[2021-11-11] MEDS ORDERED: LORazepam 2 MG/ML INJ IV STA (03:34)
[2021-11-11] MEDS ORDERED: HYDROmorphone 1 MG/ML 1 ML SYRINGE IVP STA (03:34)
--- NOTE | 2021-11-11 03:35 | ED ---
Recheck HPI - General Chief Complaint: Abdominal Pain Stated Complaint: Abd Pain Time Seen by Provider: 11/11/21 03:33 Source: patient, RN notes reviewed, old records reviewed Mode of arrival: ambulatory Limitations: no limitations - History of Present Illness Initial Comments: This is a 46-year-old female well-known to our emergency department. Patient has history of chronic colic kidney stones and flank pain. Patient comes in with nausea vomiting or uncontrolled pain. She denies any recent trauma low grade fever she has admits to. No dysuria she is having blood in the urine. Patient states her pain is just acute on chronic nothing new MD Complaint: other (Severe flank pain) -: hour(s) Returns Today for: persistent/worsening pain related to initial visit Symptoms Since Prior Visit: worsening pain Associated Symptoms: nausea, abdominal pain Treatments Prior to Arrival: home treatments, Given Pain Meds on - Related Data Home Medications Medication Instructions Recorded Confirmed oxyCODONE-APAP 10-325MG [Percocet 1 tab PO Q6H PRN 08/29/17 04/21/20 10-325 mg] PARoxetine HCL [Paxil] 40 mg PO DAILY 03/12/18 04/21/20 Topiramate [Topamax] 100 mg PO BID 03/12/18 04/21/20 PARoxetine [Paxil] 20 mg PO DAILY 06/04/18 04/21/20 Atorvastatin [Lipitor] 40 mg PO DAILY 07/16/19 04/21/20 Insulin Glargine,Hum.rec.anlog 40 unit SQ HS 01/26/20 04/21/20 [Basaglar Kwikpen U-100] lisinopriL [Zestril] 10 mg PO DAILY 01/26/20 04/21/20 Montelukast [Singulair] 10 mg PO DAILY 02/09/20 04/21/20 ARIPiprazole [Abilify] 15 mg PO HS 04/04/20 04/21/20 Insulin Lispro [Admelog Solostar] 6 units SQ AC-TID 04/04/20 04/21/20 Mirtazapine 7.5 mg PO HS 04/04/20 04/21/20 OXcarbazepine [Trileptal] 300 mg PO BID 04/04/20 04/21/20 metFORMIN HCL [Glucophage] 1,000 mg PO BID 04/04/20 04/21/20 Loratadine 10 mg PO DAILY 04/21/20 04/21/20 Previous Rx's Medication Instructions Recorded SUMAtriptan succinate [Imitrex] 100 mg PO DAILY PRN tab 08/02/17 Ciprofloxacin HCl [Cipro] 500 mg PO Q12HR 1 Days #6 tab 05/27/20 Clindamycin Gel [Clindamycin 1 applic TOPICAL BID #1 tube 09/09/20 Phosphate 1% Gel] Fluconazole [Diflucan] 150 mg PO ONCE #1 tab 10/15/20 Ciprofloxacin HCl [Cipro] 500 mg PO Q12HR #14 tablet 12/11/20 Prochlorperazine [Compazine] 10 mg PO Q8H #30 tab 04/14/21 Cefdinir [Omnicef] 300 mg PO BID #14 capsule 07/21/21 Fluconazole [Diflucan] 150 mg PO DAILY #2 tab 07/21/21 Cephalexin [Keflex] 500 mg PO Q8HR 1 Days #3 cap 10/20/21 Fluconazole [Diflucan] 150 mg PO ONCE #1 tab 10/20/21 Allergies Allergy/AdvReac Type Severity Reaction Status Date / Time bupropion HCl Allergy Rash/Hives Verified 11/10/21 23:00 [From Wellbutrin] divalproex sodium Allergy Unknown Verified 11/10/21 23:00 [From Depakote] fentanyl Allergy Swelling Verified 11/10/21 23:00 Iodinated Contrast Media Allergy Anaphylaxis Verified 11/10/21 23:00 [Iodinated Contrast Media - IV Dye] orange juice [[place]] Allergy Rash/Hives Verified 11/10/21 23:00 Sulfa (Sulfonamide Allergy Rash/Hives Verified 11/10/21 23:00 Antibiotics) Penicillins AdvReac Nausea & Verified 11/10/21 23:00 Vomiting Review of Systems ROS Statement: Those systems with pertinent positive or pertinent negative responses have been documented in the HPI. ROS Other: All systems not noted in ROS Statement are negative. 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 History of Any Multi-Drug Resistant Organisms: ESBL Date of last positivie culture/infection: 05/14/17 MDRO Source:: ESBL URINE, Past Surgical History: Bladder Surgery, Section, Cholecystectomy, Hysterectomy, Orthopedic Surgery, Tubal Ligation Additional Past Surgical History / Comment(s): R ovarian cystectomy, laparoscopic surgery for L ovary that had attached to the bowel, D&C, numerous lithotripsies, nephroscopies, cystoscopies and stents to ureters-none in place at this time, L robotic pyeloplasty with post op infection around kidney which then required a picc line/later removed (pt states was not MRSA), L rotator cuff repair, L wrist tendon surgery, colonoscopy. Kidney stone removal. Past Anesthesia/Blood Transfusion Reactions: Family History of Problems w/ An esthesia Additional Past Anesthesia/Blood Transfusion Reaction / Comment(s): dad-hard time waking up due to enzyme problems in liver Past Psychological History: ADD/ADHD, Anxiety, Bipolar, Depression, PTSD Smoking Status: Current every day smoker Past Alcohol Use History: None Reported Past Drug Use History: None Reported - Past Family History Brother(s) Family Medical History: Cancer Additional Family Medical History / Comment(s): testicular Father Family Medical History: Coronary Artery Disease (CAD), CVA/TIA, Diabetes Mellitus, Renal Disease Additional Family Medical History / Comment(s): GLAUCOMA,NEUROPATHY HAD TRIPLE CABG, at 56yrs from renal disease. Mother Family Medical History: Hyperlipidemia Additional Family Medical History / Comment(s): DDD, HAD 3 vessel CABG AGE 54. General Exam Limitations: no limitations General appearance: alert, in no apparent distress Head exam: Present: atraumatic, normocephalic, normal inspection Eye exam: Present: normal appearance, PERRL, EOMI. Absent: scleral icterus, conjunctival injection, periorbital swelling ENT exam: Present: normal exam, mucous membranes moist Neck exam: Present: normal inspection. Absent: tenderness, meningismus, lymphadenopathy Respiratory exam: Present: normal lung sounds bilaterally. Absent: respiratory distress, wheezes, rales, rhonchi, stridor Cardiovascular Exam: Present: regular rate, normal rhythm, normal heart sounds. Absent: systolic murmur, diastolic murmur, rubs, gallop, clicks GI/Abdominal exam: Present: soft, normal bowel sounds. Absent: distended, tenderness, guarding, rebound, rigid Extremities exam: Present: normal inspection, full ROM, normal capillary refill. Absent: tenderness, pedal edema, joint swelling, calf tenderness Back exam: Present: normal inspection Neurological exam: Present: alert, oriented X3, CN II-XII intact Psychiatric exam: Present: normal affect, normal mood Skin exam: Present: warm, dry, intact, normal color. Absent: rash Course Vital Signs 11/10/21 11/11/21 22:57 04:44 Temperature 98.0 F Pulse Rate 77 80 Respiratory 18 18 Rate Blood Pressure 121/80 104/69 O2 Sat by Pulse 97 99 Oximetry - Reevaluation(s) Reevaluation #1: 11/11/21 04:53 Medical record is reviewed Reevaluation #2: 11/11/21 04:54 Patient is currently adequate pain control Reevaluation #3: 11/11/21 04:54 Patient informed of results and questions are answered Medical Decision Making - Medical Decision Making 46 female presents today for evaluation of severe flank pain acute on chronic pain. Patient has pain control nausea is resolved she can be discharged home - Lab Data Result diagrams: 11/11/21 04:12 11/11/21 04:12 Lab Results 11/11/21 11/11/21 11/11/21 Range/Units 00:16 04:12 04:12 WBC 10.6 (3.8-10.6) k/uL RBC 5.27 (3.80-5.40) m/uL Hgb 16.1 H (11.4-16.0) gm/dL Hct 46.5 H (34.0-46.0) % MCV 88.3 (80.0-100.0) fL MCH 30.6 (25.0-35.0) pg MCHC 34.6 (31.0-37.0) g/dL RDW 12.8 (11.5-15.5) % Plt Count 272 (150-450) k/uL MPV 7.3 Neutrophils % 44 % Lymphocytes % 44 % Monocytes % 6 % Eosinophils % 3 % Basophils % 1 % Neutrophils # 4.7 (1.3-7.7) k/uL Lymphocytes # 4.7 (1.0-4.8) k/uL Monocytes # 0.6 (0-1.0) k/uL Eosinophils # 0.3 (0-0.7) k/uL Basophils # 0.1 (0-0.2) k/uL Sodium 136 L (137-145) mmol/L Potassium 4.1 (3.5-5.1) mmol/L Chloride 104 (98-107) mmol/L Carbon Dioxide 23 (22-30) mmol/L Anion Gap 9 mmol/L BUN 9 (7-17) mg/dL Creatinine 0.52 (0.52-1.04) mg/dL Est GFR (CKD-EPI)AfAm >90 (>60 ml/min/1.73 sqM) Est GFR (CKD-EPI)NonAf >90 (>60 ml/min/1.73 sqM) Glucose 238 H (74-99) mg/dL Calcium 9.7 (8.4-10.2) mg/dL Magnesium 1.8 (1.6-2.3) mg/dL Total Bilirubin 0.5 (0.2-1.3) mg/dL AST 30 (14-36) U/L ALT 37 H (4-34) U/L Alkaline Phosphatase 86 (38-126) U/L Total Protein 7.1 (6.3-8.2) g/dL Albumin 4.5 (3.5-5.0) g/dL Amylase 65 (30-110) U/L Lipase 171 (23-300) U/L Urine Color Yellow Urine Appearance Clear (Clear) Urine pH 5.5 (5.0-8.0) Ur Specific [place] 1.030 (1.001-1.035) Urine Protein Negative (Negative) Urine Glucose (UA) 4+ H (Negative) Urine Ketones Negative (Negative) Urine Blood Large H (Negative) Urine Nitrite Negative (Negative) Urine Bilirubin Negative (Negative) Urine Urobilinogen <2.0 (<2.0) mg/dL Ur Leukocyte Esterase Negative (Negative) Urine RBC >182 H (0-5) /hpf Urine WBC 3 (0-5) /hpf Ur Squamous Epith Cells 2 (0-4) /hpf Disposition Clinical Impression: Renal colic on left side, Intractable pain, Flank pain, Left flank pain, chronic, Abdominal pain, Nephrolithiasis Disposition: HOME SELF-CARE Condition: Good Instructions (If sedation given, give patient instructions): Abdominal Pain (ED) Is patient prescribed a controlled substance at d/c from ED?: No Referrals: Elida Basurto MD [Primary Care Provider] - 1-2 days
[2021-11-11 04:29] LABS: Basophils # (A) 0.1 k/uL (0-0.2); Basophils % (A) 1 %; Eosinophils # (A) 0.3 k/uL (0-0.7); Eosinophils % (A) 3 %; HCT 46.5 % (34.0-46.0); HGB 16.1 gm/dL (11.4-16.0); Lymphocytes # (A) 4.7 k/uL (1.0-4.8); Lymphocytes % (A) 44 %; MCH 30.6 pg (25.0-35.0); MCHC 34.6 g/dL (31.0-37.0); MCV 88.3 fL (80.0-100.0); Mean Platelet Volume 7.3; Monocytes # (A) 0.6 k/uL (0-1.0); Monocytes % (A) 6 %; Neutrophils # (A) 4.7 k/uL (1.3-7.7); Neutrophils % (A) 44 %; Platelet Count 272 k/uL (150-450); RBC 5.27 m/uL (3.80-5.40); RDW 12.8 % (11.5-15.5); WBC 10.6 k/uL (3.8-10.6)
[2021-11-11 04:46] LABS: ALT 37 U/L (4-34); AST 30 U/L (14-36); African American GFR (CKD) >90 (>60 ml/min/1.73 sqM); Albumin 4.5 g/dL (3.5-5.0); Alkaline Phosphatase 86 U/L (38-126); Amylase 65 U/L (30-110); Anion Gap 9 mmol/L; Blood Urea Nitrogen 9 mg/dL (7-17); Calcium 9.7 mg/dL (8.4-10.2); Carbon Dioxide 23 mmol/L (22-30); Chloride 104 mmol/L (98-107); Glucose 238 mg/dL (74-99); Lipase 171 U/L (23-300); Magnesium 1.8 mg/dL (1.6-2.3); Non-African American GFR(CKD) >90 (>60 ml/min/1.73 sqM); Potassium 4.1 mmol/L (3.5-5.1); Sodium 136 mmol/L (137-145); Total Bilirubin 0.5 mg/dL (0.2-1.3); Total Protein 7.1 g/dL (6.3-8.2)
[2021-11-11 06:05] VITALS: BP 114/76; PULSE 95
== END 2021-11-11 06:08 | disposition home or self-care (01) ==
LOC: EC 22:45
DX: N20.0 Calculus of kidney (principal); E11.9 Type 2 diabetes mellitus without complications; I10 Essential (primary) hypertension; F17.200 Nicotine dependence, unspecified, uncomplicated; Z88.2 Allergy status to sulfonamides; Z88.0 Allergy status to penicillin; Z91.041 Radiographic dye allergy status; Z88.8 Allergy status to other drugs, medicaments and biological substances; Z91.018 Allergy to other foods; Z88.5 Allergy status to narcotic agent
CPT/HCPCS: 36415; 80053; 82150; 83690; 83735; 85025; 81001; 99284; 96374; 96375; 96361; J2060; J1200; J0780; J1170

== ENCOUNTER 2021-11-14 02:03 | Emergency (ER) | payer BC, OTHER ==
[2021-11-14 02:12] VITALS: RESP 18; TEMP 98
[2021-11-14] MEDS ORDERED: PANTOPRAZOLE 40 MG/10 ML VIAL IVP STA (02:23)
[2021-11-14] MEDS ORDERED: KETOROLAC 15 MG/ML 1 ML VIAL IVP STA (02:23)
[2021-11-14] MEDS ORDERED: SODIUM CHLORIDE 0.9% 1,000 ML IV STA (02:23)
[2021-11-14] MEDS ORDERED: SODIUM CHLORIDE 0.9% 500 ML 500 ML IV STA (02:23)
--- NOTE | 2021-11-14 02:23 | ED ---
Abdominal Pain HPI - General Chief Complaint: Abdominal Pain Stated Complaint: Kidney Stone Time Seen by Provider: 11/14/21 02:13 Source: patient, RN notes reviewed, old records reviewed Mode of arrival: ambulatory Limitations: no limitations - History of Present Illness Initial Comments: This is a 46-year-old female who is well-known to our ER. Patient resents today for evaluation bowel pain severe bowel pain flank pain persistent flank pain with hematuria. Now with nausea vomiting unable to keep down at home medications. Patient presents for symptomatic treatment MD Complaint: abdominal pain, flank pain -: days(s) Location: diffuse Radiation: none Migration to: suprapubic Severity: severe Severity scale (1-10): 8 Quality: stabbing, sharp Consistency: constant Improves With: nothing Worsens With: nothing Context: recent surgery/procedure (History of multiple surgeries) Associated Symptoms: nausea, vomiting Treatments Prior to Arrival: prescription analgesics (Tach keep down medications) - Related Data Home Medications Medication Instructions Recorded Confirmed oxyCODONE-APAP 10-325MG [Percocet 1 tab PO Q6H PRN 08/29/17 04/21/20 10-325 mg] PARoxetine HCL [Paxil] 40 mg PO DAILY 03/12/18 04/21/20 Topiramate [Topamax] 100 mg PO BID 03/12/18 04/21/20 PARoxetine [Paxil] 20 mg PO DAILY 06/04/18 04/21/20 Atorvastatin [Lipitor] 40 mg PO DAILY 07/16/19 04/21/20 Insulin Glargine,Hum.rec.anlog 40 unit SQ HS 01/26/20 04/21/20 [Basaglar Kwikpen U-100] lisinopriL [Zestril] 10 mg PO DAILY 01/26/20 04/21/20 Montelukast [Singulair] 10 mg PO DAILY 02/09/20 04/21/20 ARIPiprazole [Abilify] 15 mg PO HS 04/04/20 04/21/20 Insulin Lispro [Admelog Solostar] 6 units SQ AC-TID 04/04/20 04/21/20 Mirtazapine 7.5 mg PO HS 04/04/20 04/21/20 OXcarbazepine [Trileptal] 300 mg PO BID 04/04/20 04/21/20 metFORMIN HCL [Glucophage] 1,000 mg PO BID 04/04/20 04/21/20 Loratadine 10 mg PO DAILY 04/21/20 04/21/20 Previous Rx's Medication Instructions Recorded SUMAtriptan succinate [Imitrex] 100 mg PO DAILY PRN tab 08/02/17 Ciprofloxacin HCl [Cipro] 500 mg PO Q12HR 1 Days #6 tab 05/27/20 Clindamycin Gel [Clindamycin 1 applic TOPICAL BID #1 tube 09/09/20 Phosphate 1% Gel] Fluconazole [Diflucan] 150 mg PO ONCE #1 tab 10/15/20 Ciprofloxacin HCl [Cipro] 500 mg PO Q12HR #14 tablet 12/11/20 Prochlorperazine [Compazine] 10 mg PO Q8H #30 tab 04/14/21 Cefdinir [Omnicef] 300 mg PO BID #14 capsule 07/21/21 Fluconazole [Diflucan] 150 mg PO DAILY #2 tab 07/21/21 Cephalexin [Keflex] 500 mg PO Q8HR 1 Days #3 cap 10/20/21 Fluconazole [Diflucan] 150 mg PO ONCE #1 tab 10/20/21 Allergies Allergy/AdvReac Type Severity Reaction Status Date / Time bupropion HCl Allergy Rash/Hives Verified 11/14/21 02:12 [From Wellbutrin] divalproex sodium Allergy Unknown Verified 11/14/21 02:12 [From Depakote] fentanyl Allergy Swelling Verified 11/14/21 02:12 Iodinated Contrast Media Allergy Anaphylaxis Verified 11/14/21 02:12 [Iodinated Contrast Media - IV Dye] orange juice [[place]] Allergy Rash/Hives Verified 11/14/21 02:12 Sulfa (Sulfonamide Allergy Rash/Hives Verified 11/14/21 02:12 Antibiotics) Penicillins AdvReac Nausea & Verified 11/14/21 02:12 Vomiting Review of Systems ROS Statement: Those systems with pertinent positive or pertinent negative responses have been documented in the HPI. ROS Other: All systems not noted in ROS Statement are negative. 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 History of Any Multi-Drug Resistant Organisms: ESBL Date of last positivie culture/infection: 05/14/17 MDRO Source:: ESBL URINE, Past Surgical History: Bladder Surgery, Section, Cholecystectomy, Hysterectomy, Orthopedic Surgery, Tubal Ligation Additional Past Surgical History / Comment(s): R ovarian cystectomy, lapar oscopic surgery for L ovary that had attached to the bowel, D&C, numerous lithotripsies, nephroscopies, cystoscopies and stents to ureters-none in place at this time, L robotic pyeloplasty with post op infection around kidney which then required a picc line/later removed (pt states was not MRSA), L rotator cuff repair, L wrist tendon surgery, colonoscopy. Kidney stone removal. Past Anesthesia/Blood Transfusion Reactions: Family History of Problems w/ Anesthesia Additional Past Anesthesia/Blood Transfusion Reaction / Comment(s): dad-hard time waking up due to enzyme problems in liver Past Psychological History: ADD/ADHD, Anxiety, Bipolar, Depression, PTSD Smoking Status: Current every day smoker Past Alcohol Use History: None Reported Past Drug Use History: None Reported - Past Family History Brother(s) Family Medical History: Cancer Additional Family Medical History / Comment(s): testicular Father Family Medical History: Coronary Artery Disease (CAD), CVA/TIA, Diabetes Mellitus, Renal Disease Additional Family Medical History / Comment(s): GLAUCOMA,NEUROPATHY HAD TRIPLE CABG, at 56yrs from renal disease. Mother Family Medical History: Hyperlipidemia Additional Family Medical History / Comment(s): DDD, HAD 3 vessel CABG AGE 54. General Exam General appearance: alert, in no apparent distress, anxious Head exam: Present: atraumatic, normocephalic, normal inspection Eye exam: Present: normal appearance, PERRL, EOMI. Absent: scleral icterus, conjunctival injection, periorbital swelling ENT exam: Present: normal exam, mucous membranes moist Neck exam: Present: normal inspection. Absent: tenderness, meningismus, lymphadenopathy Respiratory exam: Present: normal lung sounds bilaterally. Absent: respiratory distress, wheezes, rales, rhonchi, stridor Cardiovascular Exam: Present: normal rhythm, tachycardia, normal heart sounds. Absent: systolic murmur, diastolic murmur, rubs, gallop, clicks GI/Abdominal exam: Present: soft, normal bowel sounds. Absent: distended, tenderness, guarding, rebound, rigid Extremities exam: Present: normal inspection, full ROM, normal capillary refill. Absent: tenderness, pedal edema, joint swelling, calf tenderness Back exam: Present: normal inspection Neurological exam: Present: alert, oriented X3, CN II-XII intact Psychiatric exam: Present: normal affect, normal mood Skin exam: Present: warm, dry, intact, normal color. Absent: rash Course Vital Signs 11/14/21 02:10 Temperature 98 F Pulse Rate 110 H Respiratory 18 Rate Blood Pressure 123/87 O2 Sat by Pulse 98 Oximetry - Reevaluation(s) Reevaluation #1: 11/14/21 02:22 Record is reviewed Reevaluation #2: 11/14/21 03:22 Patient has improvement in symptoms and pain control Reevaluation #3: 11/14/21 03:23 Informed results and questions answered Medical Decision Making - Medical Decision Making 46 female with nausea vomiting intractable kidney stone pain. Patient symptoms resolved here in the ER she is resting can be discharged home Disposition Clinical Impression: Intractable pain, Abdominal pain, Nephrolithiasis, Flank pain, Hematuria Disposition: HOME SELF-CARE Condition: Fair Instructions (If sedation given, give patient instructions): Abdominal Pain (ED) Is patient prescribed a controlled substance at d/c from ED?: No Referrals: Elida Basurto MD [Primary Care Provider] - 1-2 days
[2021-11-14] MEDS ORDERED: diphenhydrAMINE 50 MG/ML 1 ML VIAL IVP STA (02:24)
[2021-11-14] MEDS ORDERED: HYDROmorphone 1 MG/ML 1 ML SYRINGE IVP STA (02:24)
[2021-11-14 02:34] LABS: Basophils # (A) 0.2 k/uL (0-0.2); Basophils % (A) 1 %; Eosinophils # (A) 0.3 k/uL (0-0.7); Eosinophils % (A) 2 %; HGB 14.7 gm/dL (11.4-16.0); Lymphocytes % (A) 33 %; MCH 29.5 pg (25.0-35.0); MCHC 33.4 g/dL (31.0-37.0); MCV 88.3 fL (80.0-100.0); Mean Platelet Volume 7.2; Monocytes # (A) 0.7 k/uL (0-1.0); Monocytes % (A) 5 %; Neutrophils # (A) 8.6 k/uL (1.3-7.7); Neutrophils % (A) 57 %; Platelet Count 281 k/uL (150-450); RBC 4.98 m/uL (3.80-5.40); RDW 12.2 % (11.5-15.5)
[2021-11-14 02:45] LABS: ALT 39 U/L (4-34); AST 34 U/L (14-36); African American GFR (CKD) >90 (>60 ml/min/1.73 sqM); Albumin 4.6 g/dL (3.5-5.0); Alkaline Phosphatase 100 U/L (38-126); Amylase 70 U/L (30-110); Anion Gap 12 mmol/L; Blood Urea Nitrogen 12 mg/dL (7-17); Calcium 9.3 mg/dL (8.4-10.2); Carbon Dioxide 18 mmol/L (22-30); Chloride 105 mmol/L (98-107); Glucose 222 mg/dL (74-99); Lipase 173 U/L (23-300); Non-African American GFR(CKD) >90 (>60 ml/min/1.73 sqM); Potassium 3.7 mmol/L (3.5-5.1); Sodium 135 mmol/L (137-145); Total Bilirubin 0.5 mg/dL (0.2-1.3); Total Protein 7.4 g/dL (6.3-8.2)
[2021-11-14 02:53] LABS: Appearance,Urine Clear (Clear); Bilirubin,Urine Negative (Negative); Blood,Urine Large (Negative); Color,Urine Light Red; Glucose,Urine (UA) 4+ (Negative); Ketones,Urine Negative (Negative); Leukocyte Esterase,Urine Negative (Negative); Nitrite,Urine Negative (Negative); PH, Urine 5.5 (5.0-8.0); Protein,Urine Trace (Negative); RBC,Urine >182 /hpf (0-5); Specific Gravity,Urine 1.034 (1.001-1.035); Squamous Epithelial Cell,Urine 1 /hpf (0-4); Urobilinogen,Urine <2.0 mg/dL (<2.0); WBC,Urine 2 /hpf (0-5)
[2021-11-14 05:56] VITALS: BP 132/78; PULSE 79
== END 2021-11-14 05:55 | disposition home or self-care (01) ==
LOC: EC 02:03
DX: N20.0 Calculus of kidney (principal); E11.9 Type 2 diabetes mellitus without complications; E78.5 Hyperlipidemia, unspecified; I10 Essential (primary) hypertension; Z79.4 Long term (current) use of insulin; Z79.84 Long term (current) use of oral hypoglycemic drugs; F41.9 Anxiety disorder, unspecified; F43.10 Post-traumatic stress disorder, unspecified; F31.9 Bipolar disorder, unspecified; F90.9 Attention-deficit hyperactivity disorder, unspecified type; F17.200 Nicotine dependence, unspecified, uncomplicated; Z91.041 Radiographic dye allergy status; Z88.5 Allergy status to narcotic agent; Z88.2 Allergy status to sulfonamides; Z88.0 Allergy status to penicillin; Z91.018 Allergy to other foods
CPT/HCPCS: 99284; 96374; 96375 ×4; 96361; 36415; 80053; 82150; 83690; 85025; 81001; J1200; J1170; J1885; C9113; J1790

== ENCOUNTER 2021-11-21 03:51 | Emergency (ER) | payer BC, OTHER ==
[2021-11-21] MEDS ORDERED: HYDROmorphone 1 MG/ML 1 ML SYRINGE IVP STA (03:53)
[2021-11-21] MEDS ORDERED: SODIUM CHLORIDE 0.9% 1,000 ML IV STA (03:53)
[2021-11-21] MEDS ORDERED: diphenhydrAMINE 50 MG/ML 1 ML VIAL IVP STA (03:53)
[2021-11-21 04:23] VITALS: BP 133/90; PULSE 104; RESP 18; TEMP 98
--- NOTE | 2021-11-21 04:26 | ED ---
Recheck HPI - General Chief Complaint: Urogenital Stated Complaint: Abd Pain Time Seen by Provider: 11/21/21 03:52 Source: patient, RN notes reviewed, old records reviewed Mode of arrival: ambulatory Limitations: no limitations - History of Present Illness Initial Comments: This is a 46-year-old female well-known to our emergency department for colic re nal colic history of multiple procedures and kidney procedures related to kidney stones. Patient coming in for kidney pain today. Patient is also nausea vomiting unable to keep down her at home pain medications. No fevers no other complaints pain is chronic MD Complaint: medication refill request -: hour(s) Returns Today for: request for prescription, persistent/worsening pain related to initial visit Symptoms Since Prior Visit: worsening pain Associated Symptoms: abdominal pain Treatments Prior to Arrival: Given Pain Meds on - Related Data Home Medications Medication Instructions Recorded Confirmed oxyCODONE-APAP 10-325MG [Percocet 1 tab PO Q6H PRN 08/29/17 04/21/20 10-325 mg] PARoxetine HCL [Paxil] 40 mg PO DAILY 03/12/18 04/21/20 Topiramate [Topamax] 100 mg PO BID 03/12/18 04/21/20 PARoxetine [Paxil] 20 mg PO DAILY 06/04/18 04/21/20 Atorvastatin [Lipitor] 40 mg PO DAILY 07/16/19 04/21/20 Insulin Glargine,Hum.rec.anlog 40 unit SQ HS 01/26/20 04/21/20 [Basaglar Kwikpen U-100] lisinopriL [Zestril] 10 mg PO DAILY 01/26/20 04/21/20 Montelukast [Singulair] 10 mg PO DAILY 02/09/20 04/21/20 ARIPiprazole [Abilify] 15 mg PO HS 04/04/20 04/21/20 Insulin Lispro [Admelog Solostar] 6 units SQ AC-TID 04/04/20 04/21/20 Mirtazapine 7.5 mg PO HS 04/04/20 04/21/20 OXcarbazepine [Trileptal] 300 mg PO BID 04/04/20 04/21/20 metFORMIN HCL [Glucophage] 1,000 mg PO BID 04/04/20 04/21/20 Loratadine 10 mg PO DAILY 04/21/20 04/21/20 Previous Rx's Medication Instructions Recorded SUMAtriptan succinate [Imitrex] 100 mg PO DAILY PRN tab 08/02/17 Ciprofloxacin HCl [Cipro] 500 mg PO Q12HR 1 Days #6 tab 05/27/20 Clindamycin Gel [Clindamycin 1 applic TOPICAL BID #1 tube 09/09/20 Phosphate 1% Gel] Fluconazole [Diflucan] 150 mg PO ONCE #1 tab 10/15/20 Ciprofloxacin HCl [Cipro] 500 mg PO Q12HR #14 tablet 12/11/20 Prochlorperazine [Compazine] 10 mg PO Q8H #30 tab 04/14/21 Cefdinir [Omnicef] 300 mg PO BID #14 capsule 07/21/21 Fluconazole [Diflucan] 150 mg PO DAILY #2 tab 07/21/21 Cephalexin [Keflex] 500 mg PO Q8HR 1 Days #3 cap 10/20/21 Fluconazole [Diflucan] 150 mg PO ONCE #1 tab 10/20/21 Allergies Allergy/AdvReac Type Severity Reaction Status Date / Time bupropion HCl Allergy Rash/Hives Verified 11/27/21 05:38 [From Wellbutrin] divalproex sodium Allergy Unknown Verified 11/27/21 05:38 [From Depakote] fentanyl Allergy Swelling Verified 11/27/21 05:38 Iodinated Contrast Media Allergy Anaphylaxis Verified 11/27/21 05:38 [Iodinated Contrast Media - IV Dye] orange juice [[place]] Allergy Rash/Hives Verified 11/27/21 05:38 Sulfa (Sulfonamide Allergy Rash/Hives Verified 11/27/21 05:38 Antibiotics) Penicillins AdvReac Nausea & Verified 11/27/21 05:38 Vomiting Review of Systems ROS Statement: Those systems with pertinent positive or pertinent negative responses have been documented in the HPI. ROS Other: All systems not noted in ROS Statement are negative. 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 History of Any Multi-Drug Resistant Organisms: ESBL Date of last positivie culture/infection: 05/14/17 MDRO Source:: ESBL URINE, Past Surgical History: Bladder Surgery, Section, Cholecystectomy, Hysterectomy, Orthopedic Surgery, Tubal Ligation Additional Past Surgical History / Comment(s): R ovarian cystectomy, laparoscopic surgery for L ovary that had attached to the bowel, D&C, numerous lithotripsies, nephroscopies, cystoscopies and stents to ureters-none in place at this time, L robotic pyeloplasty with post op infection around kidney which then required a picc line/later removed (pt states was not MRSA), L rotator cuff repair, L wrist tendon surgery, colonoscopy. Kidney stone removal. Past Anesthesia/Blood Transfusion Reactions: Family History of Problems w/ Anesthesia Additional Past Anesthesia/Blood Transfusion Reaction / Comment(s): dad-hard time waking up due to enzyme problems in liver Past Psychological History: ADD/ADHD, Anxiety, Bipolar, Depression, PTSD Smoking Status: Current every day smoker Past Alcohol Use History: None Reported Past Drug Use History: None Reported - Past Family History Brother(s) Family Medical History: Cancer Additional Family Medical History / Comment(s): testicular Father Family Medical History: Coronary Artery Disease (CAD), CVA/TIA, Diabetes Mellitus, Renal Disease Additional Family Medical History / Comment(s): GLAUCOMA,NEUROPATHY HAD TRIPLE CABG, at 56yrs from renal disease. Mother Family Medical History: Hyperlipidemia Additional Family Medical History / Comment(s): DDD, HAD 3 vessel CABG AGE 54. General Exam General appearance: alert, in no apparent distress, anxious Head exam: Present: atraumatic, normocephalic, normal inspection Eye exam: Present: normal appearance, PERRL, EOMI. Absent: scleral icterus, conjunctival injection, periorbital swelling ENT exam: Present: normal exam, mucous membranes moist Neck exam: Present: normal inspection. Absent: tenderness, meningismus, lymphadenopathy Respiratory exam: Present: normal lung sounds bilaterally. Absent: respiratory distress, wheezes, rales, rhonchi, stridor Cardiovascular Exam: Present: normal rhythm, tachycardia, normal heart sounds. Absent: systolic murmur, diastolic murmur, rubs, gallop, clicks GI/Abdominal exam: Present: soft, normal bowel sounds. Absent: distended, tenderness, guarding, rebound, rigid Extremities exam: Present: normal inspection, full ROM, normal capillary refill. Absent: tenderness, pedal edema, joint swelling, calf tenderness Back exam: Present: normal inspection Neurological exam: Present: alert, oriented X3, CN II-XII intact Psychiatric exam: Present: normal affect, normal mood Skin exam: Present: warm, dry, intact, normal color. Absent: rash Course Vital Signs 11/21/21 04:21 Temperature 98 F Pulse Rate 104 H Respiratory 18 Rate Blood Pressure 133/90 O2 Sat by Pulse 99 Oximetry - Reevaluation(s) Reevaluation #1: 11/21/21 Medical record is reviewed Reevaluation #2: 11/21/21 Patient informed of results and questions answered Reevaluation #3: 11/21/21 Patient's pain is resolved here in the ER Medical Decision Making - Medical Decision Making 46 female to the emergency department for evaluation of acute on chronic kidney pain renal colic. Patient has adequate pain control currently can be discharged home - Lab Data Result diagrams: 11/21/21 04:32 11/21/21 04:32 Lab Results 11/21/21 11/21/21 11/21/21 Range/Units 04:32 04:32 04:32 WBC 14.3 H (3.8-10.6) k/uL RBC 5.10 (3.80-5.40) m/uL Hgb 14.6 (11.4-16.0) gm/dL Hct 44.9 (34.0-46.0) % MCV 88.0 (80.0-100.0) fL MCH 28.6 (25.0-35.0) pg MCHC 32.5 (31.0-37.0) g/dL RDW 12.1 (11.5-15.5) % Plt Count 310 (150-450) k/uL MPV 7.5 Neutrophils % 55 % Lymphocytes % 35 % Monocytes % 5 % Eosinophils % 2 % Basophils % 2 % Neutrophils # 7.9 H (1.3-7.7) k/uL Lymphocytes # 5.0 H (1.0-4.8) k/uL Monocytes # 0.7 (0-1.0) k/uL Eosinophils # 0.3 (0-0.7) k/uL Basophils # 0.3 H (0-0.2) k/uL Sodium 134 L (137-145) mmol/L Potassium 5.6 H (3.5-5.1) mmol/L Chloride 105 (98-107) mmol/L Carbon Dioxide 19 L (22-30) mmol/L Anion Gap 10 mmol/L BUN 12 (7-17) mg/dL Creatinine 0.57 (0.52-1.04) mg/dL Est GFR (CKD-EPI)AfAm >90 (>60 ml/min/1.73 sqM) Est GFR (CKD-EPI)NonAf >90 (>60 ml/min/1.73 sqM) Glucose 156 H (74-99) mg/dL Calcium 9.4 (8.4-10.2) mg/dL Total Bilirubin 1.5 H (0.2-1.3) mg/dL AST 56 H (14-36) U/L ALT 41 H (4-34) U/L Alkaline Phosphatase 80 (38-126) U/L Total Protein 8.2 (6.3-8.2) g/dL Albumin 4.9 (3.5-5.0) g/dL Amylase 70 (30-110) U/L Lipase 209 (23-300) U/L Urine Color Light Red Urine Appearance Cloudy H (Clear) Urine pH 5.5 (5.0-8.0) Ur Specific [place] 1.034 (1.001-1.035) Urine Protein Trace H (Negative) Urine Glucose (UA) 4+ H (Negative) Urine Ketones Negative (Negative) Urine Blood Large H (Negative) Urine Nitrite Negative (Negative) Urine Bilirubin Negative (Negative) Urine Urobilinogen <2.0 (<2.0) mg/dL Ur Leukocyte Esterase Small H (Negative) Urine RBC >182 H (0-5) /hpf Urine WBC 36 H (0-5) /hpf Ur Squamous Epith Cells 4 (0-4) /hpf Disposition Clinical Impression: Left flank pain, chronic, Abdominal pain Disposition: HOME SELF-CARE Condition: Good Instructions (If sedation given, give patient instructions): Abdominal Pain (ED) Is patient prescribed a controlled substance at d/c from ED?: No Referrals: Elida Basurto MD [Primary Care Provider] - 1-2 days Time of Disposition: 05:55
[2021-11-21 04:52] LABS: Basophils # (A) 0.3 k/uL (0-0.2); Basophils % (A) 2 %; Eosinophils # (A) 0.3 k/uL (0-0.7); Eosinophils % (A) 2 %; HCT 44.9 % (34.0-46.0); HGB 14.6 gm/dL (11.4-16.0); Lymphocytes % (A) 35 %; MCH 28.6 pg (25.0-35.0); MCHC 32.5 g/dL (31.0-37.0); Mean Platelet Volume 7.5; Monocytes # (A) 0.7 k/uL (0-1.0); Monocytes % (A) 5 %; Neutrophils # (A) 7.9 k/uL (1.3-7.7); Neutrophils % (A) 55 %; Platelet Count 310 k/uL (150-450); RDW 12.1 % (11.5-15.5); WBC 14.3 k/uL (3.8-10.6)
[2021-11-21 05:04] LABS: ALT 41 U/L (4-34); African American GFR (CKD) >90 (>60 ml/min/1.73 sqM); Amylase 70 U/L (30-110); Anion Gap 10 mmol/L; Blood Urea Nitrogen 12 mg/dL (7-17); Calcium 9.4 mg/dL (8.4-10.2); Carbon Dioxide 19 mmol/L (22-30); Chloride 105 mmol/L (98-107); Lipase 209 U/L (23-300); Non-African American GFR(CKD) >90 (>60 ml/min/1.73 sqM); Sodium 134 mmol/L (137-145)
[2021-11-21 05:06] LABS: Appearance,Urine Cloudy (Clear); Bilirubin,Urine Negative (Negative); Blood,Urine Large (Negative); Color,Urine Light Red; Glucose,Urine (UA) 4+ (Negative); Ketones,Urine Negative (Negative); Leukocyte Esterase,Urine Small (Negative); Nitrite,Urine Negative (Negative); PH, Urine 5.5 (5.0-8.0); Protein,Urine Trace (Negative); RBC,Urine >182 /hpf (0-5); Specific Gravity,Urine 1.034 (1.001-1.035); Squamous Epithelial Cell,Urine 4 /hpf (0-4); Urobilinogen,Urine <2.0 mg/dL (<2.0); WBC,Urine 36 /hpf (0-5)
[2021-11-21 05:07] LABS: Glucose 156 mg/dL (74-99)
[2021-11-21 05:08] LABS: AST 56 U/L (14-36); Albumin 4.9 g/dL (3.5-5.0); Alkaline Phosphatase 80 U/L (38-126); Potassium 5.6 mmol/L (3.5-5.1); Total Bilirubin 1.5 mg/dL (0.2-1.3); Total Protein 8.2 g/dL (6.3-8.2)
== END 2021-11-21 06:07 | disposition home or self-care (01) ==
LOC: EC 03:51
DX: G89.29 Other chronic pain (principal); R10.9 Unspecified abdominal pain; E11.9 Type 2 diabetes mellitus without complications; I10 Essential (primary) hypertension; K21.9 Gastro-esophageal reflux disease without esophagitis; E78.5 Hyperlipidemia, unspecified; F31.9 Bipolar disorder, unspecified; F41.9 Anxiety disorder, unspecified; F17.200 Nicotine dependence, unspecified, uncomplicated; Z79.4 Long term (current) use of insulin; Z79.84 Long term (current) use of oral hypoglycemic drugs; Z79.899 Other long term (current) drug therapy
CPT/HCPCS: 36415; 80053; 82150; 83690; 85025; 81001; 87086; 99284; 96374; 96375 ×2; 96361; J1200; J1170; J1790

== ENCOUNTER 2021-11-27 05:19 | Emergency (ER) | payer BC, OTHER ==
[2021-11-27] MEDS ORDERED: KETOROLAC 15 MG/ML 1 ML VIAL IVP STA (05:29)
[2021-11-27] MEDS ORDERED: HYDROmorphone 1 MG/ML 1 ML SYRINGE IVP STA (05:29)
[2021-11-27] MEDS ORDERED: diphenhydrAMINE 50 MG/ML 1 ML VIAL IVP STA (05:29)
[2021-11-27] MEDS ORDERED: PANTOPRAZOLE 40 MG/10 ML VIAL IVP STA (05:29)
[2021-11-27] MEDS ORDERED: SODIUM CHLORIDE 0.9% 1,000 ML IV STA (05:29)
--- NOTE | 2021-11-27 05:40 | ED ---
Recheck HPI - General Stated Complaint: Abd Pain Time Seen by Provider: 11/27/21 05:29 Source: RN notes reviewed, old records reviewed Limitations: no limitations - History of Present Illness Initial Comments: This is a 46-year-old female she presents today for evaluation regards to abdominal pain severe flank pain secondary to kidney stones. Recent kidney stone removal. Patient states she has a little bit mild pain still despite any sort removal pain was more severe tonight with nausea vomiting unable to keep medications down. No fevers. No other new complaints MD Complaint: other (Pain control) -: hour(s) Returns Today for: persistent/worsening pain related to initial visit Symptoms Since Prior Visit: worsening pain Associated Symptoms: none Treatments Prior to Arrival: Given Pain Meds on - Related Data Home Medications Medication Instructions Recorded Confirmed oxyCODONE-APAP 10-325MG [Percocet 1 tab PO Q6H PRN 08/29/17 04/21/20 10-325 mg] PARoxetine HCL [Paxil] 40 mg PO DAILY 03/12/18 04/21/20 Topiramate [Topamax] 100 mg PO BID 03/12/18 04/21/20 PARoxetine [Paxil] 20 mg PO DAILY 06/04/18 04/21/20 Atorvastatin [Lipitor] 40 mg PO DAILY 07/16/19 04/21/20 Insulin Glargine,Hum.rec.anlog 40 unit SQ HS 01/26/20 04/21/20 [Basaglar Kwikpen U-100] lisinopriL [Zestril] 10 mg PO DAILY 01/26/20 04/21/20 Montelukast [Singulair] 10 mg PO DAILY 02/09/20 04/21/20 ARIPiprazole [Abilify] 15 mg PO HS 04/04/20 04/21/20 Insulin Lispro [Admelog Solostar] 6 units SQ AC-TID 04/04/20 04/21/20 Mirtazapine 7.5 mg PO HS 04/04/20 04/21/20 OXcarbazepine [Trileptal] 300 mg PO BID 04/04/20 04/21/20 metFORMIN HCL [Glucophage] 1,000 mg PO BID 04/04/20 04/21/20 Loratadine 10 mg PO DAILY 04/21/20 04/21/20 Previous Rx's Medication Instructions Recorded SUMAtriptan succinate [Imitrex] 100 mg PO DAILY PRN tab 08/02/17 Ciprofloxacin HCl [Cipro] 500 mg PO Q12HR 1 Days #6 tab 05/27/20 Clindamycin Gel [Clindamycin 1 applic TOPICAL BID #1 tube 09/09/20 Phosphate 1% Gel] Fluconazole [Diflucan] 150 mg PO ONCE #1 tab 10/15/20 Ciprofloxacin HCl [Cipro] 500 mg PO Q12HR #14 tablet 12/11/20 Prochlorperazine [Compazine] 10 mg PO Q8H #30 tab 04/14/21 Cefdinir [Omnicef] 300 mg PO BID #14 capsule 07/21/21 Fluconazole [Diflucan] 150 mg PO DAILY #2 tab 07/21/21 Cephalexin [Keflex] 500 mg PO Q8HR 1 Days #3 cap 10/20/21 Fluconazole [Diflucan] 150 mg PO ONCE #1 tab 10/20/21 Allergies Allergy/AdvReac Type Severity Reaction Status Date / Time bupropion HCl Allergy Rash/Hives Verified 11/27/21 05:38 [From Wellbutrin] divalproex sodium Allergy Unknown Verified 11/27/21 05:38 [From Depakote] fentanyl Allergy Swelling Verified 11/27/21 05:38 Iodinated Contrast Media Allergy Anaphylaxis Verified 11/27/21 05:38 [Iodinated Contrast Media - IV Dye] orange juice [[place]] Allergy Rash/Hives Verified 11/27/21 05:38 Sulfa (Sulfonamide Allergy Rash/Hives Verified 11/27/21 05:38 Antibiotics) Penicillins AdvReac Nausea & Verified 11/27/21 05:38 Vomiting Review of Systems ROS Statement: Those systems with pertinent positive or pertinent negative responses have been documented in the HPI. ROS Other: All systems not noted in ROS Statement are negative. 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 History of Any Multi-Drug Resistant Organisms: ESBL Date of last positivie culture/infection: 05/14/17 MDRO Source:: ESBL URINE, Past Surgical History: Bladder Surgery, Section, Cholecystectomy, Hysterectomy, Orthopedic Surgery, Tubal Ligation Additional Past Surgical History / Comment(s): R ovarian cystectomy, laparoscopic surgery for L ovary that had attached to the bowel, D&C, numerous lithotripsies, nephroscopies, cystoscopies and stents to ureters-none in place at this time, L robotic pyeloplasty with post op infection around kidney which then required a picc line/later removed (pt states was not MRSA), L rotator cuff repair, L wrist tendon surgery, colonoscopy. Kidney stone removal. Past Anesthesia/Blood Transfusion Reactions: Family History of Problems w/ Anesthesia Additional Past Anesthesia/Blood Transfusion Reaction / Comment(s): dad-hard time waking up due to enzyme problems in liver Past Psychological History: ADD/ADHD, Anxiety, Bipolar, Depression, PTSD Smoking Status: Current every day smoker Past Alcohol Use History: None Reported Past Drug Use History: None Reported - Past Family History Brother(s) Family Medical History: Cancer Additional Family Medical History / Comment(s): testicular Father Family Medical History: Coronary Artery Disease (CAD), CVA/TIA, Diabetes Ijeoma litus, Renal Disease Additional Family Medical History / Comment(s): GLAUCOMA,NEUROPATHY HAD TRIPLE CABG, at 56yrs from renal disease. Mother Family Medical History: Hyperlipidemia Additional Family Medical History / Comment(s): DDD, HAD 3 vessel CABG AGE 54. General Exam General appearance: alert, in no apparent distress Head exam: Present: atraumatic, normocephalic, normal inspection Eye exam: Present: normal appearance, PERRL, EOMI. Absent: scleral icterus, conjunctival injection, periorbital swelling ENT exam: Present: normal exam, mucous membranes moist Neck exam: Present: normal inspection. Absent: tenderness, meningismus, lymphadenopathy Respiratory exam: Present: normal lung sounds bilaterally. Absent: respiratory distress, wheezes, rales, rhonchi, stridor Cardiovascular Exam: Present: regular rate, normal rhythm, normal heart sounds. Absent: systolic murmur, diastolic murmur, rubs, gallop, clicks GI/Abdominal exam: Present: soft, normal bowel sounds. Absent: distended, tenderness, guarding, rebound, rigid Extremities exam: Present: normal inspection, full ROM, normal capillary refill. Absent: tenderness, pedal edema, joint swelling, calf tenderness Back exam: Present: normal inspection Neurological exam: Present: alert, oriented X3, CN II-XII intact Psychiatric exam: Present: normal affect, normal mood Skin exam: Present: warm, dry, intact, normal color. Absent: rash Course Vital Signs 11/27/21 11/27/21 05:34 06:43 Temperature 98.7 F 97 F L Pulse Rate 68 77 Respiratory 17 18 Rate Blood Pressure 148/89 129/79 O2 Sat by Pulse 98 98 Oximetry - Reevaluation(s) Reevaluation #1: 11/27/21 Medical record is reviewed Reevaluation #2: 11/27/21 Patient informed results questions answered Reevaluation #3: 11/27/21 Patient feels improved and okay for discharge Medical Decision Making - Medical Decision Making 46 female to the emergency department for evaluation chronic abdominal pain. Pain is currently well-controlled patient feels well can be discharged home - Lab Data Result diagrams: 11/27/21 05:35 11/27/21 05:35 Lab Results 11/27/21 11/27/21 11/27/21 Range/Units 05:35 05:35 05:35 WBC 13.9 H (3.8-10.6) k/uL RBC 5.12 (3.80-5.40) m/uL Hgb 14.9 (11.4-16.0) gm/dL Hct 45.7 (34.0-46.0) % MCV 89.3 (80.0-100.0) fL MCH 29.1 (25.0-35.0) pg MCHC 32.6 (31.0-37.0) g/dL RDW 12.3 (11.5-15.5) % Plt Count 330 (150-450) k/uL MPV 7.5 Neutrophils % 51 % Lymphocytes % 39 % Monocytes % 5 % Eosinophils % 2 % Basophils % 1 % Neutrophils # 7.1 (1.3-7.7) k/uL Lymphocytes # 5.5 H (1.0-4.8) k/uL Monocytes # 0.7 (0-1.0) k/uL Eosinophils # 0.3 (0-0.7) k/uL Basophils # 0.2 (0-0.2) k/uL Manual Slide Review Performed Sodium 135 L (137-145) mmol/L Potassium 4.0 (3.5-5.1) mmol/L Chloride 105 (98-107) mmol/L Carbon Dioxide 21 L (22-30) mmol/L Anion Gap 9 mmol/L BUN 9 (7-17) mg/dL Creatinine 0.67 (0.52-1.04) mg/dL Est GFR (CKD-EPI)AfAm >90 (>60 ml/min/1.73 sqM) Est GFR (CKD-EPI)NonAf >90 (>60 ml/min/1.73 sqM) Glucose 298 H (74-99) mg/dL Calcium 9.3 (8.4-10.2) mg/dL Total Bilirubin 0.4 (0.2-1.3) mg/dL AST 26 (14-36) U/L ALT 42 H (4-34) U/L Alkaline Phosphatase 99 (38-126) U/L Total Protein 7.4 (6.3-8.2) g/dL Albumin 4.5 (3.5-5.0) g/dL Amylase 68 (30-110) U/L Lipase 239 (23-300) U/L Urine Color Yellow Urine Appearance Clear (Clear) Urine pH 5.0 (5.0-8.0) Ur Specific [place] 1.036 H (1.001-1.035) Urine Protein Trace H (Negative) Urine Glucose (UA) 4+ H (Negative) Urine Ketones Negative (Negative) Urine Blood Large H (Negative) Urine Nitrite Negative (Negative) Urine Bilirubin Negative (Negative) Urine Urobilinogen <2.0 (<2.0) mg/dL Ur Leukocyte Esterase Negative (Negative) Urine RBC >182 H (0-5) /hpf Urine WBC <1 (0-5) /hpf Ur Squamous Epith Cells 8 H (0-4) /hpf Urine Mucus Rare H (None) /hpf Disposition Clinical Impression: Flank pain, Intractable pain Disposition: HOME SELF-CARE Condition: Good Instructions (If sedation given, give patient instructions): Flank Pain (ED) Is patient prescribed a controlled substance at d/c from ED?: No Referrals: Elida Basurto MD [Primary Care Provider] - 1-2 days Time of Disposition: 06:30
[2021-11-27 05:48] LABS: Basophils # (A) 0.2 k/uL (0-0.2); Basophils % (A) 1 %; Eosinophils # (A) 0.3 k/uL (0-0.7); Eosinophils % (A) 2 %; HCT 45.7 % (34.0-46.0); HGB 14.9 gm/dL (11.4-16.0); Lymphocytes # (A) 5.5 k/uL (1.0-4.8); Lymphocytes % (A) 39 %; MCH 29.1 pg (25.0-35.0); MCHC 32.6 g/dL (31.0-37.0); MCV 89.3 fL (80.0-100.0); Mean Platelet Volume 7.5; Monocytes # (A) 0.7 k/uL (0-1.0); Monocytes % (A) 5 %; Neutrophils # (A) 7.1 k/uL (1.3-7.7); Neutrophils % (A) 51 %; Platelet Count 330 k/uL (150-450); RBC 5.12 m/uL (3.80-5.40); RDW 12.3 % (11.5-15.5); WBC 13.9 k/uL (3.8-10.6)
[2021-11-27 05:55] LABS: Appearance,Urine Clear (Clear); Bilirubin,Urine Negative (Negative); Blood,Urine Large (Negative); Color,Urine Yellow; Glucose,Urine (UA) 4+ (Negative); Ketones,Urine Negative (Negative); Leukocyte Esterase,Urine Negative (Negative); Mucus,Urine Rare /hpf; Nitrite,Urine Negative (Negative); Protein,Urine Trace (Negative); RBC,Urine >182 /hpf (0-5); Specific Gravity,Urine 1.036 (1.001-1.035); Squamous Epithelial Cell,Urine 8 /hpf (0-4); Urobilinogen,Urine <2.0 mg/dL (<2.0); WBC,Urine <1 /hpf (0-5)
[2021-11-27 05:59] LABS: ALT 42 U/L (4-34); AST 26 U/L (14-36); African American GFR (CKD) >90 (>60 ml/min/1.73 sqM); Albumin 4.5 g/dL (3.5-5.0); Alkaline Phosphatase 99 U/L (38-126); Amylase 68 U/L (30-110); Anion Gap 9 mmol/L; Blood Urea Nitrogen 9 mg/dL (7-17); Calcium 9.3 mg/dL (8.4-10.2); Carbon Dioxide 21 mmol/L (22-30); Chloride 105 mmol/L (98-107); Glucose 298 mg/dL (74-99); Lipase 239 U/L (23-300); Non-African American GFR(CKD) >90 (>60 ml/min/1.73 sqM); Sodium 135 mmol/L (137-145); Total Bilirubin 0.4 mg/dL (0.2-1.3); Total Protein 7.4 g/dL (6.3-8.2)
[2021-11-27 06:44] VITALS: BP 129/79; PULSE 77; RESP 18; TEMP 97
== END 2021-11-27 06:44 | disposition home or self-care (01) ==
LOC: EC 05:19
DX: R10.9 Unspecified abdominal pain (principal); E11.9 Type 2 diabetes mellitus without complications; I10 Essential (primary) hypertension; E78.5 Hyperlipidemia, unspecified; K21.9 Gastro-esophageal reflux disease without esophagitis; F31.9 Bipolar disorder, unspecified; F41.9 Anxiety disorder, unspecified; F17.200 Nicotine dependence, unspecified, uncomplicated; Z79.4 Long term (current) use of insulin; Z79.84 Long term (current) use of oral hypoglycemic drugs; Z79.899 Other long term (current) drug therapy
CPT/HCPCS: 36415; 80053; 82150; 83690; 85025; 81001; 99284; 96374; 96375 ×4; 96361; J1200; J1170; J1885; C9113; J1790

== ENCOUNTER 2021-12-07 13:42 | Emergency (ER) | payer BC, OTHER ==
[2021-12-07 15:17] VITALS: TEMP 98.4
[2021-12-07 15:18] LABS: Glucose,Whole Blood 244 mg/dL (75-99)
--- NOTE | 2021-12-07 18:03 | ED ---
General Adult HPI - General Chief complaint: Urogenital Stated complaint: Kidney Stone/Low blood sugar Time Seen by Provider: 12/07/21 17:51 Source: patient, RN notes reviewed Mode of arrival: ambulatory Limitations: no limitations - History of Present Illness Initial comments: Patient is a 46-year-old female presents to emergency room with com plaints flank pain and nausea with occasional vomiting. She is not vomiting at this time and has not vomited in several hours. She reports that her pain was uncontrolled with her current prescription of Toradol and Percocet which she is on from her urologist who she is following with regarding her reports of a kidney stone to her right kidney in which she was supposed to have removed however due to uncontrolled diabetes surgery has been postponed. She has a past history significant for diabetes, hypertension, depression, hyperlipidemia, migraines, GERD, recurrent nephrolithiasis and renal disease. She states that her workup for her kidney stones was completed at [facility] at 26 mild that she follows with urologist in the [place] area. She was recently here in the emergency room and received some IV medication for pain control and advised to follow-up with her primary care provider and specialist. She reports fluctuation of her blood sugars but denies any fevers or chills. She denies any decreasing urine output. She is requesting IV hydration. She denies any other complaints or concerns at this time. - Related Data Home Medications Medication Instructions Recorded Confirmed oxyCODONE-APAP 10-325MG [Percocet 1 tab PO QID PRN 08/29/17 12/07/21 10-325 mg] PARoxetine HCL [Paxil] 40 mg PO DAILY 03/12/18 12/07/21 PARoxetine [Paxil] 20 mg PO DAILY 06/04/18 12/07/21 Loratadine 10 mg PO DAILY 04/21/20 12/07/21 Dapagliflozin Propanediol [Farxiga] 10 mg PO DAILY 12/07/21 12/07/21 Dextroamphetamine/Amphetamine 20 mg PO BID 12/07/21 12/07/21 [Dextroamp-Amphetamin 20 mg Tab] Glimepiride [Amaryl] 4 mg PO DAILY 12/07/21 12/07/21 Multivitamins, Thera [Multivitamin 1 tab PO DAILY 12/07/21 12/07/21 (formulary)] SUMAtriptan SUCCINATE [Imitrex] 100 mg PO DAILY PRN 12/07/21 12/07/21 Semaglutide [Rybelsus] 7 mg PO DAILY 12/07/21 12/07/21 prednisoLONE ACETATE 1% OPHTH 1 drops BOTH EYES QID 12/07/21 12/07/21 [Pred Forte 1%] Previous Rx's Medication Instructions Recorded Fluconazole [Diflucan] 150 mg PO ONCE 2 Days #2 tab 12/07/21 Allergies Allergy/AdvReac Type Severity Reaction Status Date / Time bupropion HCl Allergy Rash/Hives Verified 12/07/21 19:20 [From Wellbutrin] divalproex sodium Allergy Unknown Verified 12/07/21 19:20 [From Depakote] fentanyl Allergy Swelling Verified 12/07/21 19:20 Iodinated Contrast Media Allergy Anaphylaxis Verified 12/07/21 19:20 [Iodinated Contrast Media - IV Dye] orange juice [[place]] Allergy Rash/Hives Verified 12/07/21 19:20 Sulfa (Sulfonamide Allergy Rash/Hives Verified 12/07/21 19:20 Antibiotics) Penicillins AdvReac Rash/Hives/Gi Verified 12/07/21 19:20 Upset Review of Systems ROS Statement: Those systems with pertinent positive or pertinent negative responses have been documented in the HPI. ROS Other: All systems not noted in ROS Statement are negative. 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 History of Any Multi-Drug Resistant Organisms: ESBL Date of last positivie culture/infection: 05/14/17 MDRO Source:: ESBL URINE, Past Surgical History: Bladder Surgery, Section, Cholecystectomy, Hysterectomy, Orthopedic Surgery, Tubal Ligation Additional Past Surgical History / Comment(s): R ovarian cystectomy, laparoscopic surgery for L ovary that had attached to the bowel, D&C, numerous lithotripsies, nephroscopies, cystoscopies and stents to ureters-none in place at this time, L robotic pyeloplasty with post op infection around kidney which then required a picc line/later removed (pt states was not MRSA), L rotator cuff repair, L wrist tendon surgery, colonoscopy. Kidney stone removal. Past Anesthesia/Blood Transfusion Reactions: Family History of Problems w/ Anesthesia Additional Past Anesthesia/Blood Transfusion Reaction / Comment(s): dad-hard time waking up due to enzyme problems in liver Past Psychological History: ADD/ADHD, Anxiety, Bipolar, Depression, PTSD Smoking Status: Current every day smoker Past Alcohol Use History: None Reported Past Drug Use History: None Reported - Past Family History Brother(s) Family Medical History: Cancer Additional Family Medical History / Comment(s): testicular Father Family Medical History: Coronary Artery Disease (CAD), CVA/TIA, Diabetes Mellitus, Renal Disease Additional Family Medical History / Comment(s): GLAUCOMA,NEUROPATHY HAD TRIPLE CABG, at 56yrs from renal disease. Mother Family Medical History: Hyperlipidemia Additional Family Medical History / Comment(s): DDD, HAD 3 vessel CABG AGE 54. General Exam Limitations: no limitations General appearance: alert, in no apparent distress Head exam: Present: atraumatic, normocephalic, normal inspection Eye exam: Present: normal appearance, PERRL. Absent: EOMI ENT exam: Present: normal exam, mucous membranes moist Neck exam: Present: normal inspection Respiratory exam: Present: normal lung sounds bilaterally. Absent: respiratory distress, wheezes, rales, rhonchi, stridor Cardiovascular Exam: Present: regular rate, normal rhythm, normal heart sounds. Absent: systolic murmur, diastolic murmur, rubs, gallop, clicks GI/Abdominal exam: Present: soft, normal bowel sounds. Absent: distended, tenderness, guarding, rebound, rigid Rectal exam: Present: deferred Extremities exam: Present: normal inspection. Absent: pedal edema, joint swelling Back exam: Present: CVA tenderness (R). Absent: CVA tenderness (L) Neurological exam: Present: alert, oriented X3, CN II-XII intact Psychiatric exam: Present: normal affect, normal mood Skin exam: Present: warm, dry, intact, normal color. Absent: rash Course Vital Signs 12/07/21 12/07/21 15:15 20:06 Temperature 98.4 F Pulse Rate 117 H 82 Respiratory 16 18 Rate Blood Pressure 137/81 134/93 O2 Sat by Pulse 97 95 Oximetry - Reevaluation(s) Reevaluation #1: Pain and nausea improved with Dilaudid and Zofran. Family member at bedside to drive patient home. 12/07/21 20:38 Time: 20:38 Medical Decision Making - Medical Decision Making Will not repeat diagnostic imaging at this time. Will check CBC and BMP along with urine specimen. Increase in pain with nausea without vomiting. Zofran and IV Dilaudid 1 along with gentle hydration. Labs stable overall. Urinalysis consistent with uncontrolled diabetes along with renal stone. Positive for yeast infection as well. Patient agreeable for discharge home on her home pain medications and follow-up with her urologist. Will treat yeast infection with Diflucan orally. - Lab Data Result diagrams: 12/07/21 18:40 12/07/21 18:40 Lab Results 12/07/21 12/07/21 12/07/21 Range/Units 15:17 18:40 18:40 WBC 10.8 H (3.8-10.6) k/uL RBC 5.18 (3.80-5.40) m/uL Hgb 15.3 (11.4-16.0) gm/dL Hct 46.0 (34.0-46.0) % MCV 88.9 (80.0-100.0) fL MCH 29.5 (25.0-35.0) pg MCHC 33.2 (31.0-37.0) g/dL RDW 12.9 (11.5-15.5) % Plt Count 318 (150-450) k/uL MPV 7.5 Neutrophils % 56 % Lymphocytes % 36 % Monocytes % 4 % Eosinophils % 1 % Basophils % 1 % Neutrophils # 6.1 (1.3-7.7) k/uL Lymphocytes # 3.9 (1.0-4.8) k/uL Monocytes # 0.4 (0-1.0) k/uL Eosinophils # 0.2 (0-0.7) k/uL Basophils # 0.1 (0-0.2) k/uL Sodium 137 (137-145) mmol/L Potassium 3.9 (3.5-5.1) mmol/L Chloride 104 (98-107) mmol/L Carbon Dioxide 21 L (22-30) mmol/L Anion Gap 12 mmol/L BUN 13 (7-17) mg/dL Creatinine 0.63 (0.52-1.04) mg/dL Est GFR (CKD-EPI)AfAm >90 (>60 ml/min/1.73 sqM) Est GFR (CKD-EPI)NonAf >90 (>60 ml/min/1.73 sqM) Glucose 201 H (74-99) mg/dL POC Glucose (mg/dL) 244 H (75-99) mg/dL POC Glu Systems Design Engineer [facility] Calcium 10.0 (8.4-10.2) mg/dL Total Bilirubin 0.7 (0.2-1.3) mg/dL AST 41 H (14-36) U/L ALT 41 H (4-34) U/L Alkaline Phosphatase 100 (38-126) U/L Total Protein 7.7 (6.3-8.2) g/dL Albumin 4.6 (3.5-5.0) g/dL Amylase 56 (30-110) U/L Lipase 208 (23-300) U/L Urine Color Urine Appearance (Clear) Urine pH (5.0-8.0) Ur Specific [place] (1.001-1.035) Urine Protein (Negative) Urine Glucose (UA) (Negative) Urine Ketones (Negative) Urine Blood (Negative) Urine Nitrite (Negative) Urine Bilirubin (Negative) Urine Urobilinogen (<2.0) mg/dL Ur Leukocyte Esterase (Negative) Urine RBC (0-5) /hpf Ur Squamous Epith Cells (0-4) /hpf Urine Mucus (None) /hpf Urine Yeast (Budding) (None) /hpf 12/07/21 Range/Units 18:40 WBC (3.8-10.6) k/uL RBC (3.80-5.40) m/uL Hgb (11.4-16.0) gm/dL Hct (34.0-46.0) % MCV (80.0-100.0) fL MCH (25.0-35.0) pg MCHC (31.0-37.0) g/dL RDW (11.5-15.5) % Plt Count (150-450) k/uL MPV Neutrophils % % Lymphocytes % % Monocytes % % Eosinophils % % Basophils % % Neutrophils # (1.3-7.7) k/uL Lymphocytes # (1.0-4.8) k/uL Monocytes # (0-1.0) k/uL Eosinophils # (0-0.7) k/uL Basophils # (0-0.2) k/uL Sodium (137-145) mmol/L Potassium (3.5-5.1) mmol/L Chloride (98-107) mmol/L Carbon Dioxide (22-30) mmol/L Anion Gap mmol/L BUN (7-17) mg/dL Creatinine (0.52-1.04) mg/dL Est GFR (CKD-EPI)AfAm (>60 ml/min/1.73 sqM) Est GFR (CKD-EPI)NonAf (>60 ml/min/1.73 sqM) Glucose (74-99) mg/dL POC Glucose (mg/dL) (75-99) mg/dL POC Glu Systems Design Engineer ID Calcium (8.4-10.2) mg/dL Total Bilirubin (0.2-1.3) mg/dL AST (14-36) U/L ALT (4-34) U/L Alkaline Phosphatase (38-126) U/L Total Protein (6.3-8.2) g/dL Albumin (3.5-5.0) g/dL Amylase (30-110) U/L Lipase (23-300) U/L Urine Color Yellow Urine Appearance Cloudy H (Clear) Urine pH 5.5 (5.0-8.0) Ur Specific [place] 1.033 (1.001-1.035) Urine Protein Negative (Negative) Urine Glucose (UA) 4+ H (Negative) Urine Ketones Trace H (Negative) Urine Blood Large H (Negative) Urine Nitrite Negative (Negative) Urine Bilirubin Negative (Negative) Urine Urobilinogen <2.0 (<2.0) mg/dL Ur Leukocyte Esterase Negative (Negative) Urine RBC >182 H (0-5) /hpf Ur Squamous Epith Cells 6 H (0-4) /hpf Urine Mucus Rare H (None) /hpf Urine Yeast (Budding) Few H (None) /hpf Disposition Clinical Impression: Nephrolithiasis, Flank pain Disposition: HOME SELF-CARE Condition: Stable Instructions (If sedation given, give patient instructions): Urinary Tract Infection in Women (ED) Additional Instructions: Please follow-up with your urologist per their recommendations. Please return to the Emergency Department if symptoms worsen or any other concerns. Prescriptions: Fluconazole [Diflucan] 150 mg PO ONCE 2 Days #2 tab Is patient prescribed a controlled substance at d/c from ED?: No Referrals: Elida Basurto MD [Primary Care Provider] - 1-2 days Time of Disposition: 20:44
[2021-12-07] MEDS ORDERED: HYDROmorphone 0.5 MG/0.5 ML SYRINGE IVP STA (18:59)
[2021-12-07] MEDS ORDERED: ONDANSETRON 4 MG/2 ML VIAL IVP STA (18:59)
[2021-12-07] MEDS ORDERED: SODIUM CHLORIDE 0.9% 1,000 ML IV STA (18:59)
[2021-12-07 19:37] LABS: ALT 41 U/L (4-34); AST 41 U/L (14-36); African American GFR (CKD) >90 (>60 ml/min/1.73 sqM); Albumin 4.6 g/dL (3.5-5.0); Alkaline Phosphatase 100 U/L (38-126); Amylase 56 U/L (30-110); Anion Gap 12 mmol/L; Blood Urea Nitrogen 13 mg/dL (7-17); Carbon Dioxide 21 mmol/L (22-30); Chloride 104 mmol/L (98-107); Glucose 201 mg/dL (74-99); Lipase 208 U/L (23-300); Non-African American GFR(CKD) >90 (>60 ml/min/1.73 sqM); Potassium 3.9 mmol/L (3.5-5.1); Sodium 137 mmol/L (137-145); Total Bilirubin 0.7 mg/dL (0.2-1.3); Total Protein 7.7 g/dL (6.3-8.2)
[2021-12-07 19:52] LABS: Basophils # (A) 0.1 k/uL (0-0.2); Basophils % (A) 1 %; Eosinophils # (A) 0.2 k/uL (0-0.7); Eosinophils % (A) 1 %; HGB 15.3 gm/dL (11.4-16.0); Lymphocytes # (A) 3.9 k/uL (1.0-4.8); Lymphocytes % (A) 36 %; MCH 29.5 pg (25.0-35.0); MCHC 33.2 g/dL (31.0-37.0); MCV 88.9 fL (80.0-100.0); Mean Platelet Volume 7.5; Monocytes # (A) 0.4 k/uL (0-1.0); Monocytes % (A) 4 %; Neutrophils # (A) 6.1 k/uL (1.3-7.7); Neutrophils % (A) 56 %; Platelet Count 318 k/uL (150-450); RBC 5.18 m/uL (3.80-5.40); RDW 12.9 % (11.5-15.5); WBC 10.8 k/uL (3.8-10.6)
[2021-12-07 20:07] VITALS: BP 134/93; PULSE 82; RESP 18
[2021-12-07 20:33] LABS: Appearance,Urine Cloudy (Clear); Bilirubin,Urine Negative (Negative); Blood,Urine Large (Negative); Budding Yeast,Urine Few /hpf; Color,Urine Yellow; Glucose,Urine (UA) 4+ (Negative); Ketones,Urine Trace (Negative); Leukocyte Esterase,Urine Negative (Negative); Mucus,Urine Rare /hpf; Nitrite,Urine Negative (Negative); PH, Urine 5.5 (5.0-8.0); Protein,Urine Negative (Negative); RBC,Urine >182 /hpf (0-5); Specific Gravity,Urine 1.033 (1.001-1.035); Squamous Epithelial Cell,Urine 6 /hpf (0-4); Urobilinogen,Urine <2.0 mg/dL (<2.0)
== END 2021-12-07 21:08 | disposition home or self-care (01) ==
LOC: EC 13:42
DX: N20.0 Calculus of kidney (principal); E11.9 Type 2 diabetes mellitus without complications; E78.5 Hyperlipidemia, unspecified; F17.200 Nicotine dependence, unspecified, uncomplicated; F31.9 Bipolar disorder, unspecified; F41.9 Anxiety disorder, unspecified; F90.9 Attention-deficit hyperactivity disorder, unspecified type; I10 Essential (primary) hypertension; F43.10 Post-traumatic stress disorder, unspecified; Z79.84 Long term (current) use of oral hypoglycemic drugs; Z79.899 Other long term (current) drug therapy; Z88.0 Allergy status to penicillin; Z88.2 Allergy status to sulfonamides; Z91.041 Radiographic dye allergy status; Z88.5 Allergy status to narcotic agent; Z88.8 Allergy status to other drugs, medicaments and biological substances; Z91.018 Allergy to other foods
CPT/HCPCS: 36415; 80053; 82150; 83690; 85025; 81001; 99284; 96374; 96375; 96361; J2405; J1170

== ENCOUNTER 2021-12-12 01:24 | Emergency (ER) | payer BC, OTHER ==
[2021-12-12 01:28] VITALS: TEMP 97.9
[2021-12-12] MEDS ORDERED: SODIUM CHLORIDE 0.9% 1,000 ML IV STA (02:04)
[2021-12-12] MEDS ORDERED: METOCLOPRAMIDE 5 MG/ML 2 ML VIAL IM STA (02:08)
[2021-12-12] MEDS ORDERED: diphenhydrAMINE 50 MG/ML 1 ML VIAL IVP STA (02:08)
[2021-12-12] MEDS ORDERED: MORPHINE SULFATE 4 MG/ML SYRINGE IV STA (02:08)
--- NOTE | 2021-12-12 02:23 | ED ---
Back Pain HPI - General Chief Complaint: Back Pain/Injury Stated Complaint: abdominal pain Time Seen by Provider: 12/12/21 02:02 Source: patient, RN notes reviewed Limitations: no limitations - History of Present Illness Initial Comments: Patient with history of diabetes, chronic pain, and chronic kidney stone pain presents to emergency department complaining of right flank pain which has been ongoing, waxing waning intensity. Patient states she has a known kidney stone and is supposed to have some surgical procedure to remove it however she states that her urologist does not want to do a big as her diabetes had been out of control. Patient has specialist down in the [facility]. At vomiting. No hematemesis or coffee-ground emesis. No problems with bowel movements. Patient has had some mild hematuria. Patient denying chance of stating that she previously has had a hysterectomy. Pain sharp in nature. Patient does have pain medication at home in the form of Percocet, Toradol, patient also takes Flomax. No headache, no fever or chills, no changes in vision or hearing, no sore throat or difficulty with speech, no neck pain, no chest pain or shortness of breath, RIGHT flank pain, no abdominal pain, no nausea or vomiting, no changes bowel movements, no numbness or tingling, no extremity pain, no skin rashes or lesions. - Related Data Home Medications Medication Instructions Recorded Confirmed oxyCODONE-APAP 10-325MG [Percocet 1 tab PO QID PRN 08/29/17 12/07/21 10-325 mg] PARoxetine HCL [Paxil] 40 mg PO DAILY 03/12/18 12/07/21 PARoxetine [Paxil] 20 mg PO DAILY 06/04/18 12/07/21 Loratadine 10 mg PO DAILY 04/21/20 12/07/21 Dapagliflozin Propanediol [Farxiga] 10 mg PO DAILY 12/07/21 12/07/21 Dextroamphetamine/Amphetamine 20 mg PO BID 12/07/21 12/07/21 [Dextroamp-Amphetamin 20 mg Tab] Glimepiride [Amaryl] 4 mg PO DAILY 12/07/21 12/07/21 Multivitamins, Thera [Multivitamin 1 tab PO DAILY 12/07/21 12/07/21 (formulary)] SUMAtriptan succinate [Imitrex] 100 mg PO DAILY PRN 12/07/21 12/07/21 Semaglutide [Rybelsus] 7 mg PO DAILY 12/07/21 12/07/21 prednisoLONE ACETATE 1% OPHTH 1 drops BOTH EYES QID 12/07/21 12/07/21 [Pred Forte 1%] Previous Rx's Medication Instructions Recorded Fluconazole [Diflucan] 150 mg PO ONCE 2 Days #2 tab 12/07/21 Allergies Allergy/AdvReac Type Severity Reaction Status Date / Time bupropion HCl Allergy Rash/Hives Verified 12/12/21 01:28 [From Wellbutrin] divalproex sodium Allergy Unknown Verified 12/12/21 01:28 [From Depakote] fentanyl Allergy Swelling Verified 12/12/21 01:28 Iodinated Contrast Media Allergy Anaphylaxis Verified 12/12/21 01:28 [Iodinated Contrast Media - IV Dye] orange juice [[place]] Allergy Rash/Hives Verified 12/12/21 01:28 Sulfa (Sulfonamide Allergy Rash/Hives Verified 12/12/21 01:28 Antibiotics) Penicillins AdvReac Rash/Hives/Gi Verified 12/12/21 01:28 Upset Review of Systems ROS Statement: Those systems with pertinent positive or pertinent negative responses have been documented in the HPI. ROS Other: All systems not noted in ROS Statement are negative. 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 History of Any Multi-Drug Resistant Organisms: ESBL Date of last positivie culture/infection: 05/14/17 MDRO Source:: ESBL URINE, Past Surgical History: Bladder Surgery, Section, Cholecystectomy, Hysterectomy, Orthopedic Surgery, Tubal Ligation Additional Past Surgical History / Comment(s): R ovarian cystectomy, laparoscopic surgery for L ovary that had attached to the bowel, D&C, numerous lithotripsies, nephroscopies, cystoscopies and stents to ureters-none in place at this time, L robotic pyeloplasty with post op infection around kidney which then required a picc line/later removed (pt states was not MRSA), L rotator cuff repair, L wrist tendon surgery, colonoscopy. Kidney stone removal. Past Anesthesia/Blood Transfusion Reactions: Family History of Problems w/ Anesthesia Additional Past Anesthesia/Blood Transfusion Reaction / Comment(s): dad-hard time waking up due to enzyme problems in liver Past Psychological History: ADD/ADHD, Anxiety, Bipolar, Depression, PTSD Smoking Status: Current every day smoker Past Alcohol Use History: None Reported Past Drug Use History: None Reported - Past Family History Brother(s) Family Medical History: Cancer Additional Family Medical History / Comment(s): testicular Father Family Medical History: Coronary Artery Disease (CAD), CVA/TIA, Diabetes Mellitus, Renal Disease Additional Family Medical History / Comment(s): GLAUCOMA,NEUROPATHY HAD TRIPLE CABG, at 56yrs from renal disease. Mother Family Medical History: Hyperlipidemia Additional Family Medical History / Comment(s): DDD, HAD 3 vessel CABG AGE 54. General Exam - General Exam Comments Initial Comments: Patient does not appear to be ill or toxic. Limitations: no limitations General appearance: alert, in distress (Secondary to right flank pain. Vital signs stable, patient afebrile) Head exam: Present: atraumatic, normocephalic, normal inspection Eye exam: Present: normal appearance, PERRL, EOMI. Absent: scleral icterus, conjunctival injection, periorbital swelling ENT exam: Present: normal exam, mucous membranes moist Neck exam: Present: normal inspection. Absent: tenderness, meningismus, lymphadenopathy Respiratory exam: Present: normal lung sounds bilaterally. Absent: respiratory distress, wheezes, rales, rhonchi, stridor Cardiovascular Exam: Present: regular rate, normal rhythm, normal heart sounds. Absent: systolic murmur, diastolic murmur, rubs, gallop, clicks GI/Abdominal exam: Present: soft, normal bowel sounds. Absent: distended, tenderness, guarding, rebound, rigid Extremities exam: Present: normal inspection, full ROM, normal capillary refill. Absent: tenderness, pedal edema, joint swelling, calf tenderness Back exam: Present: normal inspection Neurological exam: Present: alert, oriented X3, CN II-XII intact Psychiatric exam: Present: normal affect, normal mood Skin exam: Present: warm, dry, intact, normal color. Absent: rash Course Vital Signs 12/12/21 01:27 Temperature 97.9 F Pulse Rate 99 Respiratory 18 Rate Blood Pressure 134/88 O2 Sat by Pulse 100 Oximetry - Reevaluation(s) Reevaluation #1: 12/12/21 03:21 Medical record is reviewed Symptoms are improved here in the emergency department Patient is informed of results and questions answered Patient in no distress Medical Decision Making - Medical Decision Making Patient presents with recurrent right flank pain related to what she states is kidney stone. Patient's workup here essentially negative. Patient did have hyperglycemia but no evidence of hyperosmolar state or DKA. Anion gap was 10. Patient was feeling better at discharge. There is no evidence of urinary tract infection. Patient did have significant number of red cells. Patient has a known renal stone and has an appointment with her urologist on Sunday. We'll have her keep this without fail. The case was discussed in detail with ED attending physician. Presentation, findings, treatment plan discussed in detail. Patient was told to return to the ER for any signs or symptoms worsen. Told to return immediately if any other problems arise. All questions answered. Treatment plan discussed. Patient in agreement Every effort has been made to ensure accuracy of this dictation. However, due to the limitations of electronic medical records and dictation devices, errors in charting still occur. Microbiological Analyst, Dr. Nelson - Lab Data Result diagrams: 12/12/21 02:14 12/12/21 02:14 Lab Results 12/12/21 12/12/21 12/12/21 Range/Units 02:14 02:14 02:14 WBC 11.4 H (3.8-10.6) k/uL RBC 4.87 (3.80-5.40) m/uL Hgb 14.7 (11.4-16.0) gm/dL Hct 43.2 (34.0-46.0) % MCV 88.8 (80.0-100.0) fL MCH 30.2 (25.0-35.0) pg MCHC 34.0 (31.0-37.0) g/dL RDW 12.9 (11.5-15.5) % Plt Count 289 (150-450) k/uL MPV 7.4 Neutrophils % 46 % Lymphocytes % 44 % Monocytes % 5 % Eosinophils % 2 % Basophils % 1 % Neutrophils # 5.2 (1.3-7.7) k/uL Lymphocytes # 5.0 H (1.0-4.8) k/uL Monocytes # 0.6 (0-1.0) k/uL Eosinophils # 0.2 (0-0.7) k/uL Basophils # 0.1 (0-0.2) k/uL Sodium 136 L (137-145) mmol/L Potassium 3.5 (3.5-5.1) mmol/L Chloride 103 (98-107) mmol/L Carbon Dioxide 23 (22-30) mmol/L Anion Gap 10 mmol/L BUN 8 (7-17) mg/dL Creatinine 0.50 L (0.52-1.04) mg/dL Est GFR (CKD-EPI)AfAm >90 (>60 ml/min/1.73 sqM) Est GFR (CKD-EPI)NonAf >90 (>60 ml/min/1.73 sqM) Glucose 347 H (74-99) mg/dL Calcium 9.0 (8.4-10.2) mg/dL Total Bilirubin 0.4 (0.2-1.3) mg/dL AST 28 (14-36) U/L ALT 33 (4-34) U/L Alkaline Phosphatase 92 (38-126) U/L Total Protein 7.1 (6.3-8.2) g/dL Albumin 4.3 (3.5-5.0) g/dL Urine Color Yellow Urine Appearance Clear (Clear) Urine pH 5.5 (5.0-8.0) Ur Specific [place] 1.033 (1.001-1.035) Urine Protein Negative (Negative) Urine Glucose (UA) 4+ H (Negative) Urine Ketones Negative (Negative) Urine Blood Large H (Negative) Urine Nitrite Negative (Negative) Urine Bilirubin Negative (Negative) Urine Urobilinogen <2.0 (<2.0) mg/dL Ur Leukocyte Esterase Negative (Negative) Urine RBC >182 H (0-5) /hpf Urine WBC <1 (0-5) /hpf Ur Squamous Epith Cells 4 (0-4) /hpf Urine Yeast (Budding) Rare H (None) /hpf - Radiology Data Radiology results: pending, image reviewed (No acute findings as read by me. Possible increased stool pattern. Surgical clips noted in the right upper quadrant. Awaiting radiology interpretation) Disposition Clinical Impression: Right flank pain, chronic, Renal colic, Uncontrolled diabetes mellitus Disposition: HOME SELF-CARE Condition: Good Instructions (If sedation given, give patient instructions): Flank Pain (ED), Hypoglycemia in a Person with Diabetes (ED) Additional Instructions: Make sure he follow-up with your urologist on Sunday as planned. Clear liquid diet for 24 hours. Follow-up with your regular physician as directed. Return to the ER immediately if any symptoms worsen, new symptoms arise, or any other problems develop. Is patient prescribed a controlled substance at d/c from ED?: No Referrals: Elida Basurto MD [Primary Care Provider] - 1-2 days Time of Disposition: 03:23
[2021-12-12 02:29] LABS: Basophils # (A) 0.1 k/uL (0-0.2); Basophils % (A) 1 %; Eosinophils # (A) 0.2 k/uL (0-0.7); Eosinophils % (A) 2 %; HCT 43.2 % (34.0-46.0); HGB 14.7 gm/dL (11.4-16.0); Lymphocytes % (A) 44 %; MCH 30.2 pg (25.0-35.0); MCV 88.8 fL (80.0-100.0); Mean Platelet Volume 7.4; Monocytes # (A) 0.6 k/uL (0-1.0); Monocytes % (A) 5 %; Neutrophils # (A) 5.2 k/uL (1.3-7.7); Neutrophils % (A) 46 %; Platelet Count 289 k/uL (150-450); RBC 4.87 m/uL (3.80-5.40); RDW 12.9 % (11.5-15.5); WBC 11.4 k/uL (3.8-10.6)
[2021-12-12 02:46] LABS: ALT 33 U/L (4-34); AST 28 U/L (14-36); African American GFR (CKD) >90 (>60 ml/min/1.73 sqM); Albumin 4.3 g/dL (3.5-5.0); Alkaline Phosphatase 92 U/L (38-126); Anion Gap 10 mmol/L; Appearance,Urine Clear (Clear); Bilirubin,Urine Negative (Negative); Blood Urea Nitrogen 8 mg/dL (7-17); Blood,Urine Large (Negative); Budding Yeast,Urine Rare /hpf; Carbon Dioxide 23 mmol/L (22-30); Chloride 103 mmol/L (98-107); Color,Urine Yellow; Glucose 347 mg/dL (74-99); Glucose,Urine (UA) 4+ (Negative); Ketones,Urine Negative (Negative); Leukocyte Esterase,Urine Negative (Negative); Nitrite,Urine Negative (Negative); Non-African American GFR(CKD) >90 (>60 ml/min/1.73 sqM); PH, Urine 5.5 (5.0-8.0); Potassium 3.5 mmol/L (3.5-5.1); Protein,Urine Negative (Negative); RBC,Urine >182 /hpf (0-5); Sodium 136 mmol/L (137-145); Specific Gravity,Urine 1.033 (1.001-1.035); Squamous Epithelial Cell,Urine 4 /hpf (0-4); Total Bilirubin 0.4 mg/dL (0.2-1.3); Total Protein 7.1 g/dL (6.3-8.2); Urobilinogen,Urine <2.0 mg/dL (<2.0); WBC,Urine <1 /hpf (0-5)
[2021-12-12 03:41] VITALS: BP 100/71; PULSE 76; RESP 16
--- NOTE | 2021-12-12 04:27 | XR ---
EXAM: XR Abdomen, 1 View CLINICAL HISTORY: ITS.REASON XR Reason: right flank pain TECHNIQUE: Frontal supine view of the abdomen/pelvis. COMPARISON: Abdomen radiographs on 10/15/2021 FINDINGS: Hardware: None. Abdomen: Nonobstructive bowel gas pattern. Large amount of stool. No free air. Cholecystectomy clips in the right upper quadrant. Bones: Mild degenerative changes of the hips. Mild left convex curvature of the spine. Soft tissues: Normal. Other: Presumed phleboliths in the right pelvis. IMPRESSION: Nonobstructive bowel gas pattern. Large amount of stool.
== END 2021-12-12 03:40 | disposition home or self-care (01) ==
LOC: EC 01:24
DX: N23 Unspecified renal colic (principal); E78.5 Hyperlipidemia, unspecified; I10 Essential (primary) hypertension; E11.9 Type 2 diabetes mellitus without complications; K21.9 Gastro-esophageal reflux disease without esophagitis; F17.200 Nicotine dependence, unspecified, uncomplicated; Z79.83 Long term (current) use of bisphosphonates; Z88.2 Allergy status to sulfonamides; Z88.0 Allergy status to penicillin; Z91.09 Other allergy status, other than to drugs and biological substances; Z91.041 Radiographic dye allergy status; Z88.8 Allergy status to other drugs, medicaments and biological substances
CPT/HCPCS: 36415; 80053; 85025; 81001; 74018; 99284; 96374; 96375; 96372; 96361; J2270; J1200; J2765

== ENCOUNTER 2022-01-06 14:16 | Emergency (ER) | payer BC, OTHER ==
[2022-01-06 14:57] LABS: Appearance,Urine Clear (Clear); Bilirubin,Urine Negative (Negative); Blood,Urine Large (Negative); Color,Urine Yellow; Glucose,Urine (UA) 4+ (Negative); Ketones,Urine Negative (Negative); Leukocyte Esterase,Urine Negative (Negative); Nitrite,Urine Negative (Negative); Protein,Urine Negative (Negative); RBC,Urine >182 /hpf (0-5); Specific Gravity,Urine 1.035 (1.001-1.035); Squamous Epithelial Cell,Urine 3 /hpf (0-4); Urobilinogen,Urine <2.0 mg/dL (<2.0); WBC,Urine 92 /hpf (0-5)
[2022-01-06] MEDS ORDERED: SODIUM CHLORIDE 0.9% 2,000 ML IV STA (17:24)
[2022-01-06] MEDS ORDERED: ONDANSETRON 4 MG/2 ML VIAL IVP STA (17:25)
[2022-01-06] MEDS ORDERED: HYDROmorphone 0.5 MG/0.5 ML SYRINGE IVP STA (17:26)
--- NOTE | 2022-01-06 17:36 | ED ---
Abdominal Pain HPI - General Chief Complaint: Abdominal Pain Stated Complaint: Kidney Stone Time Seen by Provider: 01/06/22 17:08 Source: patient Mode of arrival: ambulatory Limitations: no limitations - History of Present Illness Initial Comments: Patient is a 46-year-old female well-known to our emergency department for recurrent flank pain who presents to the emergency department with a chief complaint of right flank pain. Patient states her pain has been controlled with Toradol and Percocet until about 3 AM this morning when the pain became severe. Patient states the pain was so bad it made her vomit once. Patient states she sees her urologist Dr. Lockett in [place] on Sunday for more imaging and to schedule surgery for removal of a kidney stone which was supposed to be removed previously however due to uncontrolled diabetes the surgery was postponed. Patient states she saw her diabetes doctor yesterday who adjusted her oral medication. States she has been taking her sugar at home which has been normal. She denies fever, chills, increased urinary frequency/urgency, and other concerns. - Related Data Home Medications Medication Instructions Recorded Confirmed oxyCODONE-APAP 10-325MG [Percocet 1 tab PO QID PRN 08/29/17 12/07/21 10-325 mg] PARoxetine HCL [Paxil] 40 mg PO DAILY 03/12/18 12/07/21 PARoxetine [Paxil] 20 mg PO DAILY 06/04/18 12/07/21 Loratadine 10 mg PO DAILY 04/21/20 12/07/21 Dapagliflozin Propanediol [Farxiga] 10 mg PO DAILY 12/07/21 12/07/21 Dextroamphetamine/Amphetamine 20 mg PO BID 12/07/21 12/07/21 [Dextroamp-Amphetamin 20 mg Tab] Glimepiride [Amaryl] 4 mg PO DAILY 12/07/21 12/07/21 Multivitamins, Thera [Multivitamin 1 tab PO DAILY 12/07/21 12/07/21 (formulary)] SUMAtriptan succinate [Imitrex] 100 mg PO DAILY PRN 12/07/21 12/07/21 Semaglutide [Rybelsus] 7 mg PO DAILY 12/07/21 12/07/21 prednisoLONE ACETATE 1% OPHTH 1 drops BOTH EYES QID 12/07/21 12/07/21 [Pred Forte 1%] Previous Rx's Medication Instructions Recorded Fluconazole [Diflucan] 150 mg PO ONCE 2 Days #2 tab 12/07/21 Ondansetron Odt [Zofran Odt] 4 mg PO Q8H PRN #12 tab 01/06/22 Allergies Allergy/AdvReac Type Severity Reaction Status Date / Time bupropion HCl Allergy Rash/Hives Verified 01/06/22 14:20 [From Wellbutrin] divalproex sodium Allergy Unknown Verified 01/06/22 14:20 [From Depakote] fentanyl Allergy Swelling Verified 01/06/22 14:20 Iodinated Contrast Media Allergy Anaphylaxis Verified 01/06/22 14:20 [Iodinated Contrast Media - IV Dye] orange juice [[place]] Allergy Rash/Hives Verified 01/06/22 14:20 Sulfa (Sulfonamide Allergy Rash/Hives Verified 01/06/22 14:20 Antibiotics) Penicillins AdvReac Rash/Hives/Gi Verified 01/06/22 14:20 Upset Review of Systems ROS Statement: Those systems with pertinent positive or pertinent negative responses have been documented in the HPI. ROS Other: All systems not noted in ROS Statement are negative. 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 History of Any Multi-Drug Resistant Organisms: ESBL Date of last positivie culture/infection: 05/14/17 MDRO Source:: ESBL URINE, Past Surgical History: Bladder Surgery, Section, Cholecystectomy, Hysterectomy, Orthopedic Surgery, Tubal Ligation Additional Past Surgical History / Comment(s): R ovarian cystectomy, laparoscopic surgery for L ovary that had attached to the bowel, D&C, numerous lithotripsies, nephroscopies, cystoscopies and stents to ureters-none in place at this time, L robotic pyeloplasty with post op infection around kidney which t hen required a picc line/later removed (pt states was not MRSA), L rotator cuff repair, L wrist tendon surgery, colonoscopy. Kidney stone removal. Past Anesthesia/Blood Transfusion Reactions: Family History of Problems w/ Anesthesia Additional Past Anesthesia/Blood Transfusion Reaction / Comment(s): dad-hard time waking up due to enzyme problems in liver Past Psychological History: ADD/ADHD, Anxiety, Bipolar, Depression, PTSD Smoking Status: Current every day smoker Past Alcohol Use History: None Reported Past Drug Use History: None Reported - Past Family History Brother(s) Family Medical History: Cancer Additional Family Medical History / Comment(s): testicular Father Family Medical History: Coronary Artery Disease (CAD), CVA/TIA, Diabetes Mellitus, Renal Disease Additional Family Medical History / Comment(s): GLAUCOMA,NEUROPATHY HAD TRIPLE CABG, at 56yrs from renal disease. Mother Family Medical History: Hyperlipidemia Additional Family Medical History / Comment(s): DDD, HAD 3 vessel CABG AGE 54. General Exam Limitations: no limitations Head exam: Present: atraumatic, normocephalic, normal inspection Eye exam: Present: normal appearance, PERRL, EOMI. Absent: scleral icterus, conjunctival injection, periorbital swelling Respiratory exam: Present: normal lung sounds bilaterally. Absent: respiratory distress, wheezes, rales, rhonchi, stridor Cardiovascular Exam: Present: regular rate, normal rhythm, normal heart sounds. Absent: systolic murmur, diastolic murmur, rubs, gallop, clicks GI/Abdominal exam: Present: soft, normal bowel sounds. Absent: distended, tenderness, guarding, rebound, rigid Back exam: Present: normal inspection. Absent: tenderness, CVA tenderness (R), CVA tenderness (L), paraspinal tenderness, vertebral tenderness Neurological exam: Present: alert, oriented X3, CN II-XII intact Psychiatric exam: Present: normal affect, normal mood Skin exam: Present: warm, dry, intact, normal color. Absent: rash Course Vital Signs 01/06/22 01/06/22 14:18 17:08 Temperature 98.2 F Pulse Rate 115 H 91 Respiratory 20 20 Rate Blood Pressure 154/83 140/95 O2 Sat by Pulse 98 95 Oximetry Medical Decision Making - Medical Decision Making This is a 46-year-old female who presents with right flank pain. Thorough history and examination were performed. Patient is well-appearing. She is afebrile. The abdomen is soft and nontender. There is no CVA tenderness. There is no tenderness to palpation of the right back. Patient has been evaluated several times in the emergency department for this concern. I will obtain laboratory studies and KUB xray. Laboratory studies are relatively unremarkable. Urinalysis consistent with uncontrolled diabetes and a large amount of blood without evidence of infection. KUB xray is negative for acute process including unusual calcifications. Patient did not have any episodes of vomiting in the emergency department. Patient and I discussed that she has been evaluated in our emergency department several times for the same concern and has received narcotic medication. Katie ent informed that she will need to follow up with her urologist that she has been instructed to follow up with many times. Patient will be discharged with Zofran. Return parameters discussed. She verbalizes understanding and is agreeable to this plan. Dr. Robert is my attending. - Lab Data Result diagrams: 01/06/22 17:28 01/06/22 17:28 Lab Results 01/06/22 01/06/22 01/06/22 Range/Units 14:22 17:28 17:28 WBC 10.7 H (3.8-10.6) k/uL RBC 5.07 (3.80-5.40) m/uL Hgb 14.8 (11.4-16.0) gm/dL Hct 43.4 (34.0-46.0) % MCV 85.5 (80.0-100.0) fL MCH 29.2 (25.0-35.0) pg MCHC 34.1 (31.0-37.0) g/dL RDW 12.1 (11.5-15.5) % Plt Count 251 (150-450) k/uL MPV 7.8 Neutrophils % 57 % Lymphocytes % 36 % Monocytes % 3 % Eosinophils % 1 % Basophils % 1 % Neutrophils # 6.1 (1.3-7.7) k/uL Lymphocytes # 3.8 (1.0-4.8) k/uL Monocytes # 0.3 (0-1.0) k/uL Eosinophils # 0.2 (0-0.7) k/uL Basophils # 0.1 (0-0.2) k/uL Sodium 136 L (137-145) mmol/L Potassium 4.1 (3.5-5.1) mmol/L Chloride 105 (98-107) mmol/L Carbon Dioxide 19 L (22-30) mmol/L Anion Gap 12 mmol/L BUN 8 (7-17) mg/dL Creatinine 0.55 (0.52-1.04) mg/dL Est GFR (CKD-EPI)AfAm >90 (>60 ml/min/1.73 sqM) Est GFR (CKD-EPI)NonAf >90 (>60 ml/min/1.73 sqM) Glucose 222 H (74-99) mg/dL Calcium 9.7 (8.4-10.2) mg/dL Total Bilirubin 0.5 (0.2-1.3) mg/dL AST 30 (14-36) U/L ALT 32 (4-34) U/L Alkaline Phosphatase 118 (38-126) U/L Total Protein 7.7 (6.3-8.2) g/dL Albumin 4.7 (3.5-5.0) g/dL Urine Color Yellow Urine Appearance Clear (Clear) Urine pH 5.0 (5.0-8.0) Ur Specific [place] 1.035 (1.001-1.035) Urine Protein Negative (Negative) Urine Glucose (UA) 4+ H (Negative) Urine Ketones Negative (Negative) Urine Blood Large H (Negative) Urine Nitrite Negative (Negative) Urine Bilirubin Negative (Negative) Urine Urobilinogen <2.0 (<2.0) mg/dL Ur Leukocyte Esterase Negative (Negative) Urine RBC >182 H (0-5) /hpf Urine WBC 92 H (0-5) /hpf Ur Squamous Epith Cells 3 (0-4) /hpf Disposition Clinical Impression: Flank pain Disposition: HOME SELF-CARE Condition: Good Additional Instructions: Continue your home prescription of Percocet and Toradol. It is very important you follow-up with your urologist as scheduled on Sunday. Return to the emergency department if you experience new, concerning, or worsening symptoms. Is patient prescribed a controlled substance at d/c from ED?: No Referrals: Elida Basurto MD [Primary Care Provider] - 1-2 days Time of Disposition: 18:40
[2022-01-06 17:51] LABS: Basophils # (A) 0.1 k/uL (0-0.2); Basophils % (A) 1 %; Eosinophils # (A) 0.2 k/uL (0-0.7); Eosinophils % (A) 1 %; HCT 43.4 % (34.0-46.0); HGB 14.8 gm/dL (11.4-16.0); Lymphocytes # (A) 3.8 k/uL (1.0-4.8); Lymphocytes % (A) 36 %; MCH 29.2 pg (25.0-35.0); MCHC 34.1 g/dL (31.0-37.0); MCV 85.5 fL (80.0-100.0); Mean Platelet Volume 7.8; Monocytes # (A) 0.3 k/uL (0-1.0); Monocytes % (A) 3 %; Neutrophils # (A) 6.1 k/uL (1.3-7.7); Neutrophils % (A) 57 %; Platelet Count 251 k/uL (150-450); RBC 5.07 m/uL (3.80-5.40); RDW 12.1 % (11.5-15.5); WBC 10.7 k/uL (3.8-10.6)
[2022-01-06 17:55] LABS: ALT 32 U/L (4-34); AST 30 U/L (14-36); African American GFR (CKD) >90 (>60 ml/min/1.73 sqM); Albumin 4.7 g/dL (3.5-5.0); Alkaline Phosphatase 118 U/L (38-126); Anion Gap 12 mmol/L; Blood Urea Nitrogen 8 mg/dL (7-17); Calcium 9.7 mg/dL (8.4-10.2); Carbon Dioxide 19 mmol/L (22-30); Chloride 105 mmol/L (98-107); Glucose 222 mg/dL (74-99); Non-African American GFR(CKD) >90 (>60 ml/min/1.73 sqM); Potassium 4.1 mmol/L (3.5-5.1); Sodium 136 mmol/L (137-145); Total Bilirubin 0.5 mg/dL (0.2-1.3); Total Protein 7.7 g/dL (6.3-8.2)
--- NOTE | 2022-01-06 18:33 | XR ---
A EXAMINATION TYPE: XR KUB DATE OF EXAM: 01/06/2022 COMPARISON: 12/12/2021 HISTORY: Pain TECHNIQUE: Single supine KUB image of the abdomen is obtained FINDINGS: Small bowel demonstrates no evidence for dilatation or air fluid levels. Gas and fecal material is seen in non-distended colon. No convincing evidence for pneumoperitoneum. No unusual calcifications. The lung bases are clear. The osseous structures are intact. IMPRESSION: 1. Overall nonobstructive bowel gas pattern.
[2022-01-06 19:01] VITALS: BP 128/94; PULSE 86; RESP 16; TEMP 98
== END 2022-01-06 19:00 | disposition home or self-care (01) ==
LOC: EC 14:16
DX: N20.0 Calculus of kidney (principal); Z88.6 Allergy status to analgesic agent; Z88.8 Allergy status to other drugs, medicaments and biological substances; Z88.2 Allergy status to sulfonamides; Z91.041 Radiographic dye allergy status; Z91.018 Allergy to other foods; Z88.0 Allergy status to penicillin; E11.9 Type 2 diabetes mellitus without complications; K21.9 Gastro-esophageal reflux disease without esophagitis; Z79.83 Long term (current) use of bisphosphonates; I10 Essential (primary) hypertension; E78.5 Hyperlipidemia, unspecified
CPT/HCPCS: 36415; 80053; 85025; 81001; 87086; 74018; 99284; 96374; 96361; 96375; J2405; J1170

== ENCOUNTER 2022-01-08 03:56 | Emergency (ER) | payer BC, OTHER ==
[2022-01-08 04:14] VITALS: TEMP 98.2
[2022-01-08 04:48] LABS: Appearance,Urine Clear (Clear); Bilirubin,Urine Negative (Negative); Blood,Urine Large (Negative); Color,Urine Light Red; Glucose,Urine (UA) 4+ (Negative); Ketones,Urine Negative (Negative); Leukocyte Esterase,Urine Moderate (Negative); Nitrite,Urine Negative (Negative); PH, Urine 5.5 (5.0-8.0); Protein,Urine Trace (Negative); RBC,Urine >182 /hpf (0-5); Specific Gravity,Urine 1.034 (1.001-1.035); Squamous Epithelial Cell,Urine 7 /hpf (0-4); Urobilinogen,Urine <2.0 mg/dL (<2.0); WBC,Urine 64 /hpf (0-5)
[2022-01-08] MEDS ORDERED: HYDROmorphone 1 MG/ML 1 ML SYRINGE IVP STA (05:28)
[2022-01-08] MEDS ORDERED: diphenhydrAMINE 50 MG/ML 1 ML VIAL IVP STA (05:28)
[2022-01-08] MEDS ORDERED: SODIUM CHLORIDE 0.9% 1,000 ML IV STA (05:28)
--- NOTE | 2022-01-08 05:29 | ED ---
Recheck HPI - General Chief Complaint: Back Pain/Injury Stated Complaint: RT kidney stone Time Seen by Provider: 01/08/22 05:27 Source: patient Mode of arrival: ambulatory Limitations: no limitations - Related Data Home Medications Medication Instructions Recorded Confirmed oxyCODONE-APAP 10-325MG [Percocet 1 tab PO QID PRN 08/29/17 01/06/22 10-325 mg] PARoxetine HCL [Paxil] 40 mg PO DAILY 03/12/18 01/06/22 PARoxetine [Paxil] 20 mg PO DAILY 06/04/18 01/06/22 Loratadine 10 mg PO DAILY 04/21/20 01/06/22 Dapagliflozin Propanediol [Farxiga] 10 mg PO DAILY 12/07/21 01/06/22 Dextroamphetamine/Amphetamine 20 mg PO BID 12/07/21 01/06/22 [Dextroamp-Amphetamin 20 mg Tab] Glimepiride [Amaryl] 4 mg PO DAILY 12/07/21 01/06/22 Multivitamins, Thera [Multivitamin 1 tab PO DAILY 12/07/21 01/06/22 (formulary)] SUMAtriptan succinate [Imitrex] 100 mg PO DAILY PRN 12/07/21 01/06/22 Semaglutide [Rybelsus] 14 mg PO DAILY 01/06/22 01/06/22 Previous Rx's Medication Instructions Recorded Ondansetron Odt [Zofran Odt] 4 mg PO Q8H PRN #12 tab 01/06/22 Allergies Allergy/AdvReac Type Severity Reaction Status Date / Time bupropion HCl Allergy Rash/Hives Verified 01/08/22 04:14 [From Wellbutrin] divalproex sodium Allergy Unknown Verified 01/08/22 04:14 [From Depakote] fentanyl Allergy Swelling Verified 01/08/22 04:14 Iodinated Contrast Media Allergy Anaphylaxis Verified 01/08/22 04:14 [Iodinated Contrast Media - IV Dye] orange juice [[place]] Allergy Rash/Hives Verified 01/08/22 04:14 Sulfa (Sulfonamide Allergy Rash/Hives Verified 01/08/22 04:14 Antibiotics) Penicillins AdvReac Rash/Hives/Gi Verified 01/08/22 04:14 Upset Review of Systems ROS Statement: Those systems with pertinent positive or pertinent negative responses have been documented in the HPI. ROS Other: All systems not noted in ROS Statement are negative. 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 History of Any Multi-Drug Resistant Organisms: ESBL Date of last positivie culture/infection: 05/14/17 MDRO Source:: ESBL URINE, Past Surgical History: Bladder Surgery, Section, Cholecystectomy, Hysterectomy, Orthopedic Surgery, Tubal Ligation Additional Past Surgical History / Comment(s): R ovarian cystectomy, laparoscopic surgery for L ovary that had attached to the bowel, D&C, numerous lithotripsies, nephroscopies, cystoscopies and stents to ureters-none in place at this time, L robotic pyeloplasty with post op infection around kidney which then required a picc line/later removed (pt states was not MRSA), L rotator cuff repair, L wrist tendon surgery, colonoscopy. Kidney stone removal. Past Anesthesia/Blood Transfusion Reactions: Family History of Problems w/ Anesthesia Additional Past Anesthesia/Blood Transfusion Reaction / Comment(s): dad-hard time waking up due to enzyme problems in liver Past Psychological History: ADD/ADHD, Anxiety, Bipolar, Depression, PTSD Smoking Status: Current every day smoker Past Alcohol Use History: None Reported Past Drug Use History: None Reported - Past Family History Brother(s) Family Medical History: Cancer Additional Family Medical History / Comment(s): testicular Father Family Medical History: Coronary Artery Disease (CAD), CVA/TIA, Diabetes Mellitus, Renal Disease Additional Family Medical History / Comment(s): GLAUCOMA,NEUROPATHY HAD TRIPLE CABG, at 56yrs from renal disease. Mother Family Medical History: Hyperlipidemia Additional Family Medical History / Comment(s): DDD, HAD 3 vessel CABG AGE 54. General Exam Limitations: no limitations Course Vital Signs 01/08/22 04:11 Temperature 98.2 F Pulse Rate 100 Respiratory 24 Rate Blood Pressure 141/89 O2 Sat by Pulse 98 Oximetry Medical Decision Making - Lab Data Result diagrams: 01/08/22 05:47 01/08/22 05:47 Lab Results 01/08/22 01/08/22 01/08/22 Range/Units 04:16 05:47 05:47 WBC 10.5 (3.8-10.6) k/uL RBC 5.17 (3.80-5.40) m/uL Hgb 15.6 (11.4-16.0) gm/dL Hct 45.1 (34.0-46.0) % MCV 87.3 (80.0-100.0) fL MCH 30.2 (25.0-35.0) pg MCHC 34.7 (31.0-37.0) g/dL RDW 12.8 (11.5-15.5) % Plt Count 240 (150-450) k/uL MPV 7.5 Neutrophils % 49 % Lymphocytes % 42 % Monocytes % 5 % Eosinophils % 2 % Basophils % 1 % Neutrophils # 5.1 (1.3-7.7) k/uL Lymphocytes # 4.4 (1.0-4.8) k/uL Monocytes # 0.5 (0-1.0) k/uL Eosinophils # 0.2 (0-0.7) k/uL Basophils # 0.1 (0-0.2) k/uL Sodium 136 L (137-145) mmol/L Potassium 3.9 (3.5-5.1) mmol/L Chloride 101 (98-107) mmol/L Carbon Dioxide 24 (22-30) mmol/L Anion Gap 11 mmol/L BUN 8 (7-17) mg/dL Creatinine 0.54 (0.52-1.04) mg/dL Est GFR (CKD-EPI)AfAm >90 (>60 ml/min/1.73 sqM) Est GFR (CKD-EPI)NonAf >90 (>60 ml/min/1.73 sqM) Glucose 256 H (74-99) mg/dL Calcium 11.0 H (8.4-10.2) mg/dL Phosphorus 5.6 H (2.5-4.5) mg/dL Magnesium 1.6 (1.6-2.3) mg/dL Total Bilirubin 0.6 (0.2-1.3) mg/dL AST 34 (14-36) U/L ALT 30 (4-34) U/L Alkaline Phosphatase 94 (38-126) U/L Total Protein 7.3 (6.3-8.2) g/dL Albumin 4.5 (3.5-5.0) g/dL Urine Color Light Red Urine Appearance Clear (Clear) Urine pH 5.5 (5.0-8.0) Ur Specific [place] 1.034 (1.001-1.035) Urine Protein Trace H (Negative) Urine Glucose (UA) 4+ H (Negative) Urine Ketones Negative (Negative) Urine Blood Large H (Negative) Urine Nitrite Negative (Negative) Urine Bilirubin Negative (Negative) Urine Urobilinogen <2.0 (<2.0) mg/dL Ur Leukocyte Esterase Moderate H (Negative) Urine RBC >182 H (0-5) /hpf Urine WBC 64 H (0-5) /hpf Ur Squamous Epith Cells 7 H (0-4) /hpf Disposition Clinical Impression: Intractable pain, Nephrolithiasis Disposition: HOME SELF-CARE Condition: Fair Instructions (If sedation given, give patient instructions): Kidney Stones (ED) Is patient prescribed a controlled substance at d/c from ED?: No Referrals: Elida Basurto MD [Primary Care Provider] - 1-2 days
[2022-01-08 05:57] LABS: Basophils # (A) 0.1 k/uL (0-0.2); Basophils % (A) 1 %; Eosinophils # (A) 0.2 k/uL (0-0.7); Eosinophils % (A) 2 %; HCT 45.1 % (34.0-46.0); HGB 15.6 gm/dL (11.4-16.0); Lymphocytes # (A) 4.4 k/uL (1.0-4.8); Lymphocytes % (A) 42 %; MCH 30.2 pg (25.0-35.0); MCHC 34.7 g/dL (31.0-37.0); MCV 87.3 fL (80.0-100.0); Mean Platelet Volume 7.5; Monocytes # (A) 0.5 k/uL (0-1.0); Monocytes % (A) 5 %; Neutrophils # (A) 5.1 k/uL (1.3-7.7); Neutrophils % (A) 49 %; Platelet Count 240 k/uL (150-450); RBC 5.17 m/uL (3.80-5.40); RDW 12.8 % (11.5-15.5); WBC 10.5 k/uL (3.8-10.6)
[2022-01-08 06:09] LABS: ALT 30 U/L (4-34); AST 34 U/L (14-36); African American GFR (CKD) >90 (>60 ml/min/1.73 sqM); Albumin 4.5 g/dL (3.5-5.0); Alkaline Phosphatase 94 U/L (38-126); Anion Gap 11 mmol/L; Blood Urea Nitrogen 8 mg/dL (7-17); Carbon Dioxide 24 mmol/L (22-30); Chloride 101 mmol/L (98-107); Glucose 256 mg/dL (74-99); Magnesium 1.6 mg/dL (1.6-2.3); Non-African American GFR(CKD) >90 (>60 ml/min/1.73 sqM); Phosphorus 5.6 mg/dL (2.5-4.5); Potassium 3.9 mmol/L (3.5-5.1); Sodium 136 mmol/L (137-145); Total Bilirubin 0.6 mg/dL (0.2-1.3); Total Protein 7.3 g/dL (6.3-8.2)
[2022-01-08 07:08] VITALS: BP 134/80; PULSE 88; RESP 18
== END 2022-01-08 07:07 | disposition home or self-care (01) ==
LOC: EC 03:56
DX: N20.0 Calculus of kidney (principal); F17.200 Nicotine dependence, unspecified, uncomplicated; E11.9 Type 2 diabetes mellitus without complications; I10 Essential (primary) hypertension; Z88.8 Allergy status to other drugs, medicaments and biological substances; Z88.2 Allergy status to sulfonamides; Z88.0 Allergy status to penicillin; Z91.018 Allergy to other foods; Z91.041 Radiographic dye allergy status; Z88.5 Allergy status to narcotic agent; Z79.899 Other long term (current) drug therapy; Z79.84 Long term (current) use of oral hypoglycemic drugs
CPT/HCPCS: 36415; 80053; 83735; 84100; 85025; 81001; 87086; 99284; 96374; 96375; 96361; J1200; J1170; J1790

== ENCOUNTER 2022-01-11 22:16 | Emergency (ER) | payer BC, OTHER ==
[2022-01-11 22:30] VITALS: BP 127/85; PULSE 80; RESP 16; TEMP 98.1
[2022-01-11] MEDS ORDERED: ONDANSETRON 4 MG/2 ML VIAL IVP STA (23:57)
[2022-01-11] MEDS ORDERED: SODIUM CHLORIDE 0.9% 1,000 ML IV STA (23:57)
[2022-01-11] MEDS ORDERED: HYDROmorphone 0.5 MG/0.5 ML SYRINGE IVP STA (23:57)
[2022-01-12 00:23] LABS: Basophils # (A) 0.1 k/uL (0-0.2); Basophils % (A) 1 %; Eosinophils # (A) 0.3 k/uL (0-0.7); Eosinophils % (A) 2 %; HCT 46.7 % (34.0-46.0); HGB 16.3 gm/dL (11.4-16.0); Lymphocytes % (A) 34 %; MCH 30.7 pg (25.0-35.0); MCHC 34.9 g/dL (31.0-37.0); Mean Platelet Volume 7.5; Monocytes # (A) 0.4 k/uL (0-1.0); Monocytes % (A) 4 %; Neutrophils # (A) 6.8 k/uL (1.3-7.7); Neutrophils % (A) 58 %; Platelet Count 264 k/uL (150-450); RBC 5.31 m/uL (3.80-5.40); RDW 12.8 % (11.5-15.5); WBC 11.7 k/uL (3.8-10.6)
--- NOTE | 2022-01-12 00:24 | ED ---
General Adult HPI - General Chief complaint: Abdominal Pain Stated complaint: RT side kidney stone Time Seen by Provider: 01/11/22 23:45 Source: patient Mode of arrival: ambulatory Limitations: no limitations - History of Present Illness Initial comments: Patient is a 46-year-old female history of kidney stones presenting with chief complaint of right flank pain. Patient has a known kidney stone to this side, she follows with urologist Dr. Lockett in [place], she states she was scheduled to see him today but he has Covid and was unable to keep their appointment. Patient has had previous appointments to have the stone removed, however due to her diabetes being uncontrolled they were canceled. Patient states she is taking Percocet and Toradol, however her pain is not controlled. She admits to nausea and hematuria. She denies any fever, chills, abdominal pain, vomiting, chest pain, shortness of breath, dysuria, urgency, frequency. - Related Data Home Medications Medication Instructions Recorded Confirmed oxyCODONE-APAP 10-325MG [Percocet 1 tab PO QID PRN 08/29/17 01/06/22 10-325 mg] PARoxetine HCL [Paxil] 40 mg PO DAILY 03/12/18 01/06/22 PARoxetine [Paxil] 20 mg PO DAILY 06/04/18 01/06/22 Loratadine 10 mg PO DAILY 04/21/20 01/06/22 Dapagliflozin Propanediol [Farxiga] 10 mg PO DAILY 12/07/21 01/06/22 Dextroamphetamine/Amphetamine 20 mg PO BID 12/07/21 01/06/22 [Dextroamp-Amphetamin 20 mg Tab] Glimepiride [Amaryl] 4 mg PO DAILY 12/07/21 01/06/22 Multivitamins, Thera [Multivitamin 1 tab PO DAILY 12/07/21 01/06/22 (formulary)] SUMAtriptan succinate [Imitrex] 100 mg PO DAILY PRN 12/07/21 01/06/22 Semaglutide [Rybelsus] 14 mg PO DAILY 01/06/22 01/06/22 Previous Rx's Medication Instructions Recorded Ondansetron Odt [Zofran Odt] 4 mg PO Q8H PRN #12 tab 01/06/22 Ondansetron Odt [Zofran Odt] 4 mg PO Q8HR PRN #15 tab 01/12/22 Allergies Allergy/AdvReac Type Severity Reaction Status Date / Time bupropion HCl Allergy Rash/Hives Verified 01/11/22 22:27 [From Wellbutrin] divalproex sodium Allergy Unknown Verified 01/11/22 22:27 [From Depakote] fentanyl Allergy Swelling Verified 01/11/22 22:27 Iodinated Contrast Media Allergy Anaphylaxis Verified 01/11/22 22:27 [Iodinated Contrast Media - IV Dye] orange juice [[place]] Allergy Rash/Hives Verified 01/11/22 22:27 Sulfa (Sulfonamide Allergy Rash/Hives Verified 01/11/22 22:27 Antibiotics) Penicillins AdvReac Rash/Hives/Gi Verified 01/11/22 22:27 Upset Review of Systems ROS Statement: Those systems with pertinent positive or pertinent negative responses have been documented in the HPI. ROS Other: All systems not noted in ROS Statement are negative. 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 History of Any Multi-Drug Resistant Organisms: ESBL Date of last positivie culture/infection: 05/14/17 MDRO Source:: ESBL URINE, Past Surgical History: Bladder Surgery, Section, Cholecystectomy, Hysterectomy, Orthopedic Surgery, Tubal Ligation Additional Past Surgical History / Comment(s): R ovarian cystectomy, laparoscopic surgery for L ovary that had attached to the bowel, D&C, numerous lithotripsies, nephroscopies, cystoscopies and stents to ureters-none in place at this time, L robotic pyeloplasty with post op infection around kidney which then required a picc line/later removed (pt states was not MRSA), L rotator cuff repair, L wrist tendon surgery, colonoscopy. Kidney stone removal. Past Anesthesia/Blood Transfusion Reactions: Family History of Problems w/ Anesthesia Additional Past Anesthesia/Blood Transfusion Reaction / Comment(s): dad-hard time waking up due to enzyme problems in liver Past Psychological History: ADD/ADHD, Anxiety, Bipolar, Depression, PTSD Smoking Status: Current every day smoker Past Alcohol Use History: None Reported Past Drug Use History: None Reported - Past Family History Brother(s) Family Medical History: Cancer Additional Family Medical History / Comment(s): testicular Father Family Medical History: Coronary Artery Disease (CAD), CVA/TIA, Diabetes Mellitus, Renal Disease Additional Family Medical History / Comment(s): GLAUCOMA,NEUROPATHY HAD TRIPLE CABG, at 56yrs from renal disease. Mother Family Medical History: Hyperlipidemia Additional Family Medical History / Comment(s): DDD, HAD 3 vessel CABG AGE 54. General Exam Limitations: no limitations General appearance: alert, in no apparent distress Head exam: Present: atraumatic, normocephalic, normal inspection Eye exam: Present: normal appearance, EOMI. Absent: scleral icterus, periorbital swelling Neck exam: Present: normal inspection Respiratory exam: Present: normal lung sounds bilaterally. Absent: respiratory distress, wheezes, rales, rhonchi, stridor Cardiovascular Exam: Present: regular rate, normal rhythm, normal heart sounds. Absent: systolic murmur, diastolic murmur, rubs, gallop, clicks GI/Abdominal exam: Present: soft. Absent: distended, tenderness, guarding, rebound, rigid Back exam: Present: normal inspection, CVA tenderness (R). Absent: CVA tenderness (L) Neurological exam: Present: alert, oriented X3, CN II-XII intact Psychiatric exam: Present: normal affect, normal mood Skin exam: Present: warm, dry, intact, normal color. Absent: rash Course Vital Signs 01/11/22 22:27 Temperature 98.1 F Pulse Rate 80 Respiratory 16 Rate Blood Pressure 127/85 O2 Sat by Pulse 98 Oximetry Medical Decision Making - Medical Decision Making Patient is a 46-year-old female history of kidney stones presenting with chief complaint of right flank pain. Patient was seen here 2 times over the last week for the same complaint. Patient states that she had an appointment with her urologist scheduled today but was unable to attend as he has Covid. She is complaining of right flank pain and nausea, states that her Toradol and Percocet are not controlling her pain. On examination there is some right-sided tenderness, no abdominal tenderness. Urine indicates no sign of infectious proc ess. Lactic acid is 2.4, likely from dehydration, patient is receiving 2 L normal saline fluid bolus. Hyperglycemic with glucose of 173. On reassessment patient reports improvement in her symptoms. Instructed to follow-up with her urology office in one to 2 days. Report back to ER if any new or worsening symptoms. I discussed return parameters answered all questions. Patient conveyed verbal understanding and agreed to the plan. I discussed this case with my attending Dr. Churchill. - Lab Data Result diagrams: 01/12/22 00:07 01/12/22 00:07 Lab Results 01/12/22 01/12/22 01/12/22 Range/Units 00:07 00:07 00:07 WBC 11.7 H (3.8-10.6) k/uL RBC 5.31 (3.80-5.40) m/uL Hgb 16.3 H (11.4-16.0) gm/dL Hct 46.7 H (34.0-46.0) % MCV 88.0 (80.0-100.0) fL MCH 30.7 (25.0-35.0) pg MCHC 34.9 (31.0-37.0) g/dL RDW 12.8 (11.5-15.5) % Plt Count 264 (150-450) k/uL MPV 7.5 Neutrophils % 58 % Lymphocytes % 34 % Monocytes % 4 % Eosinophils % 2 % Basophils % 1 % Neutrophils # 6.8 (1.3-7.7) k/uL Lymphocytes # 4.0 (1.0-4.8) k/uL Monocytes # 0.4 (0-1.0) k/uL Eosinophils # 0.3 (0-0.7) k/uL Basophils # 0.1 (0-0.2) k/uL Sodium 136 L (137-145) mmol/L Potassium 3.7 (3.5-5.1) mmol/L Chloride 104 (98-107) mmol/L Carbon Dioxide 21 L (22-30) mmol/L Anion Gap 11 mmol/L BUN 11 (7-17) mg/dL Creatinine 0.55 (0.52-1.04) mg/dL Est GFR (CKD-EPI)AfAm >90 (>60 ml/min/1.73 sqM) Est GFR (CKD-EPI)NonAf >90 (>60 ml/min/1.73 sqM) Glucose 173 H (74-99) mg/dL Plasma Lactic Acid Brant (0.7-2.0) mmol/L Calcium 9.6 (8.4-10.2) mg/dL Total Bilirubin 0.4 (0.2-1.3) mg/dL AST 35 (14-36) U/L ALT 34 (4-34) U/L Alkaline Phosphatase 108 (38-126) U/L Total Protein 7.5 (6.3-8.2) g/dL Albumin 4.4 (3.5-5.0) g/dL Amylase 58 (30-110) U/L Lipase 153 (23-300) U/L Urine Color Light Red Urine Appearance Clear (Clear) Urine pH 6.0 (5.0-8.0) Ur Specific [place] 1.036 H (1.001-1.035) Urine Protein Trace H (Negative) Urine Glucose (UA) 4+ H (Negative) Urine Ketones Trace H (Negative) Urine Blood Large H (Negative) Urine Nitrite Negative (Negative) Urine Bilirubin Negative (Negative) Urine Urobilinogen <2.0 (<2.0) mg/dL Ur Leukocyte Esterase Negative (Negative) Urine RBC >182 H (0-5) /hpf Ur Squamous Epith Cells 5 H (0-4) /hpf 01/12/22 Range/Units 00:07 WBC (3.8-10.6) k/uL RBC (3.80-5.40) m/uL Hgb (11.4-16.0) gm/dL Hct (34.0-46.0) % MCV (80.0-100.0) fL MCH (25.0-35.0) pg MCHC (31.0-37.0) g/dL RDW (11.5-15.5) % Plt Count (150-450) k/uL MPV Neutrophils % % Lymphocytes % % Monocytes % % Eosinophils % % Basophils % % Neutrophils # (1.3-7.7) k/uL Lymphocytes # (1.0-4.8) k/uL Monocytes # (0-1.0) k/uL Eosinophils # (0-0.7) k/uL Basophils # (0-0.2) k/uL Sodium (137-145) mmol/L Potassium (3.5-5.1) mmol/L Chloride (98-107) mmol/L Carbon Dioxide (22-30) mmol/L Anion Gap mmol/L BUN (7-17) mg/dL Creatinine (0.52-1.04) mg/dL Est GFR (CKD-EPI)AfAm (>60 ml/min/1.73 sqM) Est GFR (CKD-EPI)NonAf (>60 ml/min/1.73 sqM) Glucose (74-99) mg/dL Plasma Lactic Acid Brant 2.4 H* (0.7-2.0) mmol/L Calcium (8.4-10.2) mg/dL Total Bilirubin (0.2-1.3) mg/dL AST (14-36) U/L ALT (4-34) U/L Alkaline Phosphatase (38-126) U/L Total Protein (6.3-8.2) g/dL Albumin (3.5-5.0) g/dL Amylase (30-110) U/L Lipase (23-300) U/L Urine Color Urine Appearance (Clear) Urine pH (5.0-8.0) Ur Specific [place] (1.001-1.035) Urine Protein (Negative) Urine Glucose (UA) (Negative) Urine Ketones (Negative) Urine Blood (Negative) Urine Nitrite (Negative) Urine Bilirubin (Negative) Urine Urobilinogen (<2.0) mg/dL Ur Leukocyte Esterase (Negative) Urine RBC (0-5) /hpf Ur Squamous Epith Cells (0-4) /hpf Disposition Clinical Impression: Kidney stone Disposition: HOME SELF-CARE Condition: Good Instructions (If sedation given, give patient instructions): Kidney Stones (ED) Additional Instructions: Follow up with urologist in one to 2 days. Report back to ER with any new or worsening symptoms. Supportive treatment with Motrin and Tylenol. Take medication as prescribed. Prescriptions: Ondansetron Odt [Zofran Odt] 4 mg PO Q8HR PRN #15 tab PRN Reason: Nausea Is patient prescribed a controlled substance at d/c from ED?: No Referrals: None,Stated [Primary Care Provider] - 1-2 days Time of Disposition: 01:11
[2022-01-12 00:32] LABS: ALT 34 U/L (4-34); AST 35 U/L (14-36); African American GFR (CKD) >90 (>60 ml/min/1.73 sqM); Albumin 4.4 g/dL (3.5-5.0); Alkaline Phosphatase 108 U/L (38-126); Amylase 58 U/L (30-110); Anion Gap 11 mmol/L; Blood Urea Nitrogen 11 mg/dL (7-17); Calcium 9.6 mg/dL (8.4-10.2); Carbon Dioxide 21 mmol/L (22-30); Chloride 104 mmol/L (98-107); Glucose 173 mg/dL (74-99); Lipase 153 U/L (23-300); Non-African American GFR(CKD) >90 (>60 ml/min/1.73 sqM); Potassium 3.7 mmol/L (3.5-5.1); Sodium 136 mmol/L (137-145); Total Bilirubin 0.4 mg/dL (0.2-1.3); Total Protein 7.5 g/dL (6.3-8.2)
--- NOTE | 2022-01-12 00:32 | XR ---
EXAMINATION TYPE: XR KUB DATE OF EXAM: 01/12/2022 COMPARISON: 01/06/2022 HISTORY: Flank pain TECHNIQUE: 2 views upright FINDINGS: There is no sign of intestinal obstruction or pneumoperitoneum. Fecal pattern is normal. Heide ng bases are clear. There are no pathologic calcifications over the kidneys. There are clips from cho lecystectomy. IMPRESSION: Nonacute abdomen. No change.
[2022-01-12 00:46] LABS: Appearance,Urine Clear (Clear); Bilirubin,Urine Negative (Negative); Blood,Urine Large (Negative); Color,Urine Light Red; Glucose,Urine (UA) 4+ (Negative); Ketones,Urine Trace (Negative); Leukocyte Esterase,Urine Negative (Negative); Nitrite,Urine Negative (Negative); Protein,Urine Trace (Negative); RBC,Urine >182 /hpf (0-5); Specific Gravity,Urine 1.036 (1.001-1.035); Squamous Epithelial Cell,Urine 5 /hpf (0-4); Urobilinogen,Urine <2.0 mg/dL (<2.0)
[2022-01-12] MEDS ORDERED: SODIUM CHLORIDE 0.9% 1,000 ML IV ONE (00:53)
[2022-01-12] MEDS ORDERED: KETOROLAC 15 MG/ML 1 ML VIAL IVP STA (01:09)
== END 2022-01-12 02:48 | disposition home or self-care (01) ==
LOC: EC 22:16
DX: N20.0 Calculus of kidney (principal); E11.9 Type 2 diabetes mellitus without complications; I10 Essential (primary) hypertension; F17.200 Nicotine dependence, unspecified, uncomplicated; Z88.8 Allergy status to other drugs, medicaments and biological substances; Z88.5 Allergy status to narcotic agent; Z91.041 Radiographic dye allergy status; Z91.018 Allergy to other foods; Z88.2 Allergy status to sulfonamides; Z88.0 Allergy status to penicillin; Z79.899 Other long term (current) drug therapy; Z79.84 Long term (current) use of oral hypoglycemic drugs
CPT/HCPCS: 36415; 80053; 82150; 83605; 83690; 85025; 81001; 74018; 99284; 96374; 96375; 96361; J2405; J1885; J1170

== ENCOUNTER 2022-01-15 23:17 | Emergency (ER) | payer BC, OTHER ==
[2022-01-15] MEDS ORDERED: HYDROmorphone 1 MG/ML 1 ML SYRINGE IVP STA (23:29)
[2022-01-15] MEDS ORDERED: ONDANSETRON 4 MG/2 ML VIAL IVP STA (23:29)
[2022-01-15] MEDS ORDERED: SODIUM CHLORIDE 0.9% 1,000 ML IV STA ×2 (23:29)
[2022-01-15] MEDS ORDERED: KETOROLAC 15 MG/ML 1 ML VIAL IVP STA (23:29)
--- NOTE | 2022-01-15 23:31 | ED ---
Recheck HPI - General Stated Complaint: flank pain Time Seen by Provider: 01/15/22 23:21 Source: RN notes reviewed, old records reviewed Limitations: no limitations (This is a 46-year-old female DF for evaluation. The patient resents for evaluation regards to chronic pain. Acute on chronic pain nausea vomiting unable to keep symptoms under control. Patient has no recent travel history no sick contacts no trauma. No fevers. Patient has no) - History of Present Illness Initial Comments: This is a 46-year-old female well-known to us today for evaluation of pain today patient comes in for persistent flank pain history of same. No traumas pain is not new. Patient has no fevers she has been having significant nausea and vomiting. Otherwise no complaints. MD Complaint: medication refill request -: year(s) Returns Today for: request for prescription, persistent/worsening pain related to initial visit Associated Symptoms: none Treatments Prior to Arrival: Given Pain Meds on - Related Data Home Medications Medication Instructions Recorded Confirmed oxyCODONE-APAP 10-325MG [Percocet 1 tab PO QID PRN 08/29/17 01/06/22 10-325 mg] PARoxetine HCL [Paxil] 40 mg PO DAILY 03/12/18 01/06/22 PARoxetine [Paxil] 20 mg PO DAILY 06/04/18 01/06/22 Loratadine 10 mg PO DAILY 04/21/20 01/06/22 Dapagliflozin Propanediol [Farxiga] 10 mg PO DAILY 12/07/21 01/06/22 Dextroamphetamine/Amphetamine 20 mg PO BID 12/07/21 01/06/22 [Dextroamp-Amphetamin 20 mg Tab] Glimepiride [Amaryl] 4 mg PO DAILY 12/07/21 01/06/22 Multivitamins, Thera [Multivitamin 1 tab PO DAILY 12/07/21 01/06/22 (formulary)] SUMAtriptan succinate [Imitrex] 100 mg PO DAILY PRN 12/07/21 01/06/22 Semaglutide [Rybelsus] 14 mg PO DAILY 01/06/22 01/06/22 Previous Rx's Medication Instructions Recorded Ondansetron Odt [Zofran Odt] 4 mg PO Q8H PRN #12 tab 01/06/22 Ondansetron Odt [Zofran Odt] 4 mg PO Q8HR PRN #15 tab 01/12/22 clindamycin HCL [Cleocin] 300 mg PO Q6HR #40 cap 01/21/22 Allergies Allergy/AdvReac Type Severity Reaction Status Date / Time bupropion HCl Allergy Rash/Hives Verified 01/21/22 03:25 [From Wellbutrin] divalproex sodium Allergy Unknown Verified 01/21/22 03:25 [From Depakote] fentanyl Allergy Swelling Verified 01/21/22 03:25 Iodinated Contrast Media Allergy Anaphylaxis Verified 01/21/22 03:25 [Iodinated Contrast Media - IV Dye] orange juice [[place]] Allergy Rash/Hives Verified 01/21/22 03:25 Sulfa (Sulfonamide Allergy Rash/Hives Verified 01/21/22 03:25 Antibiotics) Penicillins AdvReac Rash/Hives/Gi Verified 01/21/22 03:25 Upset Review of Systems ROS Statement: Those systems with pertinent positive or pertinent negative responses have been documented in the HPI. ROS Other: All systems not noted in ROS Statement are negative. 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 History of Any Multi-Drug Resistant Organisms: ESBL Date of last positivie culture/infection: 05/14/17 MDRO Source:: ESBL URINE, Past Surgical History: Bladder Surgery, Section, Cholecystectomy, Hysterectomy, Orthopedic Surgery, Tubal Ligation Additional Past Surgical History / Comment(s): R ovarian cystectomy, laparoscopic surgery for L ovary that had attached to the bowel, D&C, numerous lithotripsies, nephroscopies, cystoscopies and stents to ureters-none in place at this time, L robotic pyeloplasty with post op infection around kidney which then required a picc line/later removed (pt states was not MRSA), L rotator cuff repair, L wrist tendon surgery, colonoscopy. Kidney stone removal. Past Anesthesia/Blood Transfusion Reactions: Family History of Problems w/ Anesthesia Additional Past Anesthesia/Blood Transfusion Reaction / Comment(s): dad-hard time waking up due to enzyme problems in liver Past Psychological History: ADD/ADHD, Anxiety, Bipolar, Depression, PTSD Smoking Status: Current every day smoker Past Alcohol Use History: None Reported Past Drug Use History: None Reported - Past Family History Brother(s) Family Medical History: Cancer Additional Family Medical History / Comment(s): testicular Father Family Medical History: Coronary Artery Disease (CAD), CVA/TIA, Diabetes Mellitus, Renal Disease Additional Family Medical History / Comment(s): GLAUCOMA,NEUROPATHY HAD TRIPLE CABG, at 56yrs from renal disease. Mother Family Medical History: Hyperlipidemia Additional Family Medical History / Comment(s): DDD, HAD 3 vessel CABG AGE 54. General Exam General appearance: alert, in no apparent distress Head exam: Present: atraumatic, normocephalic, normal inspection Eye exam: Present: normal appearance, PERRL, EOMI. Absent: scleral icterus, conjunctival injection, periorbital swelling ENT exam: Present: normal exam, mucous membranes moist Neck exam: Present: normal inspection. Absent: tenderness, meningismus, lymphadenopathy Respiratory exam: Present: normal lung sounds bilaterally. Absent: respiratory distress, wheezes, rales, rhonchi, stridor Cardiovascular Exam: Present: regular rate, normal rhythm, normal heart sounds. Absent: systolic murmur, diastolic murmur, rubs, gallop, clicks GI/Abdominal exam: Present: soft, normal bowel sounds. Absent: distended, tenderness, guarding, rebound, rigid Extremities exam: Present: normal inspection, full ROM, normal capillary refill. Absent: tenderness, pedal edema, joint swelling, calf tenderness Back exam: Present: normal inspection Neurological exam: Present: alert, oriented X3, CN II-XII intact Psychiatric exam: Present: normal affect, normal mood Skin exam: Present: warm, dry, intact, normal color. Absent: rash Course Vital Signs 01/15/22 01/15/22 23:33 23:56 Temperature 97.9 F Pulse Rate 99 96 Respiratory 19 16 Rate Blood Pressure 113/78 119/82 O2 Sat by Pulse 97 98 Oximetry - Reevaluation(s) Reevaluation #1: 01/16/22 Medical record is reviewed Reevaluation #2: 01/16/22 Patient symptoms are improved Reevaluation #3: 01/16/22 Patient informed of results and questions answered Medical Decision Making - Medical Decision Making 46 female to the emergency department for evaluation. Patient won't our ER for chronic pain flank pain recent pain. Patient was inserted here today for evaluation of nausea vomiting and pain control. Symptoms are improved here in the ER she can be discharged home - Lab Data Result diagrams: 01/15/22 23:55 01/15/22 23:55 Lab Results 01/15/22 01/15/22 01/15/22 Range/Units 23:47 23:55 23:55 WBC 13.4 H (3.8-10.6) k/uL RBC 5.53 H (3.80-5.40) m/uL Hgb 15.8 (11.4-16.0) gm/dL Hct 48.0 H (34.0-46.0) % MCV 86.8 (80.0-100.0) fL MCH 28.6 (25.0-35.0) pg MCHC 33.0 (31.0-37.0) g/dL RDW 12.5 (11.5-15.5) % Plt Count 338 (150-450) k/uL MPV 7.7 Neutrophils % 50 % Lymphocytes % 41 % Monocytes % 5 % Eosinophils % 2 % Basophils % 1 % Neutrophils # 6.7 (1.3-7.7) k/uL Lymphocytes # 5.6 H (1.0-4.8) k/uL Monocytes # 0.6 (0-1.0) k/uL Eosinophils # 0.3 (0-0.7) k/uL Basophils # 0.1 (0-0.2) k/uL Sodium 135 L (137-145) mmol/L Potassium 3.8 (3.5-5.1) mmol/L Chloride 103 (98-107) mmol/L Carbon Dioxide 19 L (22-30) mmol/L Anion Gap 13 mmol/L BUN 13 (7-17) mg/dL Creatinine 0.59 (0.52-1.04) mg/dL Est GFR (CKD-EPI)AfAm >90 (>60 ml/min/1.73 sqM) Est GFR (CKD-EPI)NonAf >90 (>60 ml/min/1.73 sqM) Glucose 232 H (74-99) mg/dL Calcium 9.9 (8.4-10.2) mg/dL Phosphorus 4.6 H (2.5-4.5) mg/dL Magnesium 1.6 (1.6-2.3) mg/dL Total Bilirubin 0.6 (0.2-1.3) mg/dL AST 49 H (14-36) U/L ALT 45 H (4-34) U/L Alkaline Phosphatase 102 (38-126) U/L Total Protein 7.5 (6.3-8.2) g/dL Albumin 4.5 (3.5-5.0) g/dL Urine Color Light Red Urine Appearance Cloudy H (Clear) Urine pH 5.5 (5.0-8.0) Ur Specific [place] 1.032 (1.001-1.035) Urine Protein Trace H (Negative) Urine Glucose (UA) 4+ H (Negative) Urine Ketones Trace H (Negative) Urine Blood Large H (Negative) Urine Nitrite Negative (Negative) Urine Bilirubin Negative (Negative) Urine Urobilinogen <2.0 (<2.0) mg/dL Ur Leukocyte Esterase Small H (Negative) Urine RBC >182 H (0-5) /hpf Urine WBC 25 H (0-5) /hpf Ur Squamous Epith Cells 17 H (0-4) /hpf Urine Mucus Rare H (None) /hpf Disposition Clinical Impression: Abdominal pain Disposition: HOME SELF-CARE Condition: Good Instructions (If sedation given, give patient instructions): Abdominal Pain (ED) Is patient prescribed a controlled substance at d/c from ED?: No Referrals: None,Stated [Primary Care Provider] - 1-2 days Time of Disposition: 01:00
[2022-01-15 23:35] VITALS: TEMP 97.9
[2022-01-16] VITALS: BP 119/82; PULSE 96; RESP 16
[2022-01-16 00:06] LABS: Basophils # (A) 0.1 k/uL (0-0.2); Basophils % (A) 1 %; Eosinophils # (A) 0.3 k/uL (0-0.7); Eosinophils % (A) 2 %; HGB 15.8 gm/dL (11.4-16.0); Lymphocytes # (A) 5.6 k/uL (1.0-4.8); Lymphocytes % (A) 41 %; MCH 28.6 pg (25.0-35.0); MCV 86.8 fL (80.0-100.0); Mean Platelet Volume 7.7; Monocytes # (A) 0.6 k/uL (0-1.0); Monocytes % (A) 5 %; Neutrophils # (A) 6.7 k/uL (1.3-7.7); Neutrophils % (A) 50 %; Platelet Count 338 k/uL (150-450); RBC 5.53 m/uL (3.80-5.40); RDW 12.5 % (11.5-15.5); WBC 13.4 k/uL (3.8-10.6)
[2022-01-16 00:17] LABS: Appearance,Urine Cloudy (Clear); Bilirubin,Urine Negative (Negative); Blood,Urine Large (Negative); Color,Urine Light Red; Glucose,Urine (UA) 4+ (Negative); Ketones,Urine Trace (Negative); Leukocyte Esterase,Urine Small (Negative); Mucus,Urine Rare /hpf; Nitrite,Urine Negative (Negative); PH, Urine 5.5 (5.0-8.0); Protein,Urine Trace (Negative); RBC,Urine >182 /hpf (0-5); Specific Gravity,Urine 1.032 (1.001-1.035); Squamous Epithelial Cell,Urine 17 /hpf (0-4); Urobilinogen,Urine <2.0 mg/dL (<2.0); WBC,Urine 25 /hpf (0-5)
[2022-01-16] MEDS ORDERED: diphenhydrAMINE 50 MG/ML 1 ML VIAL IVP STA (00:21)
[2022-01-16] MEDS ORDERED: PROCHLORPERAZINE INJ 10 MG/2 ML VIAL IVP STA (00:21)
[2022-01-16 00:50] LABS: ALT 45 U/L (4-34); AST 49 U/L (14-36); African American GFR (CKD) >90 (>60 ml/min/1.73 sqM); Albumin 4.5 g/dL (3.5-5.0); Alkaline Phosphatase 102 U/L (38-126); Anion Gap 13 mmol/L; Blood Urea Nitrogen 13 mg/dL (7-17); Calcium 9.9 mg/dL (8.4-10.2); Carbon Dioxide 19 mmol/L (22-30); Chloride 103 mmol/L (98-107); Glucose 232 mg/dL (74-99); Magnesium 1.6 mg/dL (1.6-2.3); Non-African American GFR(CKD) >90 (>60 ml/min/1.73 sqM); Phosphorus 4.6 mg/dL (2.5-4.5); Potassium 3.8 mmol/L (3.5-5.1); Sodium 135 mmol/L (137-145); Total Bilirubin 0.6 mg/dL (0.2-1.3); Total Protein 7.5 g/dL (6.3-8.2)
== END 2022-01-16 01:11 | disposition home or self-care (01) ==
LOC: EC 23:17
DX: R10.9 Unspecified abdominal pain (principal); R11.2 Nausea with vomiting, unspecified; F17.200 Nicotine dependence, unspecified, uncomplicated; E11.9 Type 2 diabetes mellitus without complications; I10 Essential (primary) hypertension; K21.9 Gastro-esophageal reflux disease without esophagitis; E78.5 Hyperlipidemia, unspecified; Z88.8 Allergy status to other drugs, medicaments and biological substances; Z88.5 Allergy status to narcotic agent; Z90.49 Acquired absence of other specified parts of digestive tract; Z91.041 Radiographic dye allergy status; Z91.018 Allergy to other foods; Z88.2 Allergy status to sulfonamides; Z88.0 Allergy status to penicillin; Z79.899 Other long term (current) drug therapy; Z79.84 Long term (current) use of oral hypoglycemic drugs
CPT/HCPCS: 36415; 80053; 83735; 84100; 85025; 81001; 99284; 96374; 96375 ×2; 96361; J1200; J0780; J2405; J1170; J1885

== ENCOUNTER 2022-01-21 03:19 | Emergency (ER) | payer BC, OTHER ==
[2022-01-21 03:25] VITALS: TEMP 97.9
[2022-01-21] MEDS ORDERED: PROCHLORPERAZINE INJ 10 MG/2 ML VIAL IVP STA (03:28)
[2022-01-21] MEDS ORDERED: diphenhydrAMINE 50 MG/ML 1 ML VIAL IVP STA (03:28)
[2022-01-21] MEDS ORDERED: PANTOPRAZOLE 40 MG/10 ML VIAL IVP STA (03:28)
[2022-01-21] MEDS ORDERED: HYDROmorphone 1 MG/ML 1 ML SYRINGE IVP STA (03:28)
[2022-01-21] MEDS ORDERED: SODIUM CHLORIDE 0.9% 500 ML 500 ML IV STA (03:28)
[2022-01-21] MEDS ORDERED: SODIUM CHLORIDE 0.9% 1,000 ML IV STA ×2 (03:28)
--- NOTE | 2022-01-21 03:30 | ED ---
Abdominal Pain HPI - General Chief Complaint: Abdominal Pain Stated Complaint: Kidney stone Time Seen by Provider: 01/21/22 03:26 Source: patient Mode of arrival: ambulatory Limitations: no limitations - Related Data Home Medications Medication Instructions Recorded Confirmed oxyCODONE-APAP 10-325MG [Percocet 1 tab PO QID PRN 08/29/17 01/06/22 10-325 mg] PARoxetine HCL [Paxil] 40 mg PO DAILY 03/12/18 01/06/22 PARoxetine [Paxil] 20 mg PO DAILY 06/04/18 01/06/22 Loratadine 10 mg PO DAILY 04/21/20 01/06/22 Dapagliflozin Propanediol [Farxiga] 10 mg PO DAILY 12/07/21 01/06/22 Dextroamphetamine/Amphetamine 20 mg PO BID 12/07/21 01/06/22 [Dextroamp-Amphetamin 20 mg Tab] Glimepiride [Amaryl] 4 mg PO DAILY 12/07/21 01/06/22 Multivitamins, Thera [Multivitamin 1 tab PO DAILY 12/07/21 01/06/22 (formulary)] SUMAtriptan succinate [Imitrex] 100 mg PO DAILY PRN 12/07/21 01/06/22 Semaglutide [Rybelsus] 14 mg PO DAILY 01/06/22 01/06/22 Previous Rx's Medication Instructions Recorded Ondansetron Odt [Zofran Odt] 4 mg PO Q8H PRN #12 tab 01/06/22 Ondansetron Odt [Zofran Odt] 4 mg PO Q8HR PRN #15 tab 01/12/22 Allergies Allergy/AdvReac Type Severity Reaction Status Date / Time bupropion HCl Allergy Rash/Hives Verified 01/21/22 03:25 [From Wellbutrin] divalproex sodium Allergy Unknown Verified 01/21/22 03:25 [From Depakote] fentanyl Allergy Swelling Verified 01/21/22 03:25 Iodinated Contrast Media Allergy Anaphylaxis Verified 01/21/22 03:25 [Iodinated Contrast Media - IV Dye] orange juice [[place]] Allergy Rash/Hives Verified 01/21/22 03:25 Sulfa (Sulfonamide Allergy Rash/Hives Verified 01/21/22 03:25 Antibiotics) Penicillins AdvReac Rash/Hives/Gi Verified 01/21/22 03:25 Upset Review of Systems ROS Statement: Those systems with pertinent positive or pertinent negative responses have been documented in the HPI. ROS Other: All systems not noted in ROS Statement are negative. 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 History of Any Multi-Drug Resistant Organisms: ESBL Date of last positivie culture/infection: 05/14/17 MDRO Source:: ESBL URINE, Past Surgical History: Bladder Surgery, Section, Cholecystectomy, Hysterectomy, Orthopedic Surgery, Tubal Ligation Additional Past Surgical History / Comment(s): R ovarian cystectomy, laparoscopic surgery for L ovary that had attached to the bowel, D&C, numerous lithotripsies, nephroscopies, cystoscopies and stents to ureters-none in place at this time, L robotic pyeloplasty with post op infection around kidney which then required a picc line/later removed (pt states was not MRSA), L rotator cuff repair, L wrist tendon surgery, colonoscopy. Kidney stone removal. Past Anesthesia/Blood Transfusion Reactions: Family History of Problems w/ Anesthesia Additional Past Anesthesia/Blood Transfusion Reaction / Comment(s): dad-hard time waking up due to enzyme problems in liver Past Psychological History: ADD/ADHD, Anxiety, Bipolar, Depression, PTSD Smoking Status: Current every day smoker Past Alcohol Use History: None Reported Past Drug Use History: None Reported - Past Family History Brother(s) Family Medical History: Cancer Additional Family Medical History / Comment(s): testicular Father Family Medical History: Coronary Artery Disease (CAD), CVA/TIA, Diabetes Mellitus, Renal Disease Additional Family Medical History / Comment(s): GLAUCOMA,NEUROPATHY HAD TRIPLE CABG, at 56yrs from renal disease. Mother Family Medical History: Hyperlipidemia Additional Family Medical History / Comment(s): DDD, HAD 3 vessel CABG AGE 54. General Exam Limitations: no limitations Course Vital Signs 01/21/22 03:22 Temperature 97.9 F Pulse Rate 120 H Respiratory 22 Rate Blood Pressure 149/88 O2 Sat by Pulse 97 Oximetry Disposition Clinical Impression: Intractable pain, Abdominal pain, Hematuria, Nephrolithiasis Disposition: HOME SELF-CARE Condition: Fair Instructions (If sedation given, give patient instructions): Abdominal Pain (ED) Is patient prescribed a controlled substance at d/c from ED?: No Referrals: None,Stated [Primary Care Provider] - 1-2 days
[2022-01-21 04:19] LABS: Basophils # (A) 0.1 k/uL (0-0.2); Basophils % (A) 1 %; Eosinophils # (A) 0.2 k/uL (0-0.7); Eosinophils % (A) 1 %; HCT 44.4 % (34.0-46.0); Lymphocytes % (A) 31 %; MCH 28.6 pg (25.0-35.0); MCHC 33.7 g/dL (31.0-37.0); MCV 84.8 fL (80.0-100.0); Mean Platelet Volume 7.4; Monocytes # (A) 0.7 k/uL (0-1.0); Monocytes % (A) 5 %; Neutrophils # (A) 7.9 k/uL (1.3-7.7); Neutrophils % (A) 61 %; Platelet Count 300 k/uL (150-450); RBC 5.24 m/uL (3.80-5.40); RDW 12.5 % (11.5-15.5)
[2022-01-21 04:44] LABS: Appearance,Urine Clear (Clear); Bilirubin,Urine Negative (Negative); Blood,Urine Large (Negative); Color,Urine Yellow; Glucose,Urine (UA) 4+ (Negative); Ketones,Urine Trace (Negative); Leukocyte Esterase,Urine Negative (Negative); Nitrite,Urine Negative (Negative); PH, Urine 5.5 (5.0-8.0); Protein,Urine Trace (Negative); RBC,Urine >182 /hpf (0-5); Specific Gravity,Urine 1.032 (1.001-1.035); Squamous Epithelial Cell,Urine <1 /hpf (0-4); Urobilinogen,Urine <2.0 mg/dL (<2.0)
[2022-01-21] MEDS ORDERED: MUPIROCIN 2% OINT 22 GM TUBE TOPICAL STA (05:02)
[2022-01-21] MEDS ORDERED: FLUCONAZOLE 150 MG TAB PO STA (05:02)
[2022-01-21] MEDS ORDERED: CLINDAMYCIN 150 MG CAP PO STA (05:04)
[2022-01-21 05:20] LABS: ALT 35 U/L (4-34); AST 29 U/L (14-36); African American GFR (CKD) >90 (>60 ml/min/1.73 sqM); Albumin 4.8 g/dL (3.5-5.0); Alkaline Phosphatase 125 U/L (38-126); Amylase 60 U/L (30-110); Anion Gap 15 mmol/L; Blood Urea Nitrogen 9 mg/dL (7-17); Calcium 10.6 mg/dL (8.4-10.2); Carbon Dioxide 17 mmol/L (22-30); Chloride 105 mmol/L (98-107); Glucose 222 mg/dL (74-99); Lipase 175 U/L (23-300); Non-African American GFR(CKD) >90 (>60 ml/min/1.73 sqM); Potassium 3.7 mmol/L (3.5-5.1); Sodium 137 mmol/L (137-145); Total Bilirubin 0.9 mg/dL (0.2-1.3); Total Protein 7.8 g/dL (6.3-8.2)
[2022-01-21 05:23] VITALS: BP 123/76; PULSE 94; RESP 18
== END 2022-01-21 05:24 | disposition home or self-care (01) ==
LOC: EC 03:19
DX: N20.0 Calculus of kidney (principal); R31.9 Hematuria, unspecified; E11.9 Type 2 diabetes mellitus without complications; E78.5 Hyperlipidemia, unspecified; I10 Essential (primary) hypertension; G43.909 Migraine, unspecified, not intractable, without status migrainosus; Z79.84 Long term (current) use of oral hypoglycemic drugs; F90.9 Attention-deficit hyperactivity disorder, unspecified type; F41.9 Anxiety disorder, unspecified; F31.9 Bipolar disorder, unspecified; F43.10 Post-traumatic stress disorder, unspecified; Z88.8 Allergy status to other drugs, medicaments and biological substances; Z88.5 Allergy status to narcotic agent; Z91.041 Radiographic dye allergy status; Z88.2 Allergy status to sulfonamides; Z88.0 Allergy status to penicillin; Z91.018 Allergy to other foods; F17.200 Nicotine dependence, unspecified, uncomplicated
CPT/HCPCS: 36415; 80053; 82150; 83690; 85025; 81001; 99284; 96374; 96375 ×2; 96361 ×2; J1200; J0780; J1170; C9113

== ENCOUNTER 2022-01-25 20:20 | Emergency (ER) | payer BC, OTHER ==
[2022-01-25 20:50] VITALS: BP 107/67; PULSE 104; RESP 18; TEMP 98.3
--- NOTE | 2022-01-25 22:01 | ED ---
Abdominal Pain HPI - General Chief Complaint: Back Pain/Injury Stated Complaint: Kidney stone Time Seen by Provider: 01/25/22 21:28 Source: patient Mode of arrival: ambulatory Limitations: no limitations - History of Present Illness Initial Comments: This patient is a 46-year-old woman who presents with complaint that she is having right flank pain. Patient states that she has a stone that she has had difficulty passing. She sees a urologist who works out of [facility]. She states that she has been scheduled twice for lithotripsy but that they had not been able to perform the procedure once because of uncontrolled blood sugar and another time because of a technical problem with visualizing the stone. Patient states that she is scheduled to have this addressed sometime next week. Today she is seeking some analgesia. She has not noted fever or chills. No systemic symptoms, no chest pain, dyspnea, diaphoresis, palpitations or syncope. MD Complaint: flank pain -: week(s) Location: R flank Migration to: no migration Severity: severe Quality: aching, sharp Consistency: colicky Improves With: nothing Worsens With: nothing Associated Symptoms: nausea - Related Data Home Medications Medication Instructions Recorded Confirmed oxyCODONE-APAP 10-325MG [Percocet 1 tab PO QID PRN 08/29/17 01/06/22 10-325 mg] PARoxetine HCL [Paxil] 40 mg PO DAILY 03/12/18 01/06/22 PARoxetine [Paxil] 20 mg PO DAILY 06/04/18 01/06/22 Loratadine 10 mg PO DAILY 04/21/20 01/06/22 Dapagliflozin Propanediol [Farxiga] 10 mg PO DAILY 12/07/21 01/06/22 Dextroamphetamine/Amphetamine 20 mg PO BID 12/07/21 01/06/22 [Dextroamp-Amphetamin 20 mg Tab] Glimepiride [Amaryl] 4 mg PO DAILY 12/07/21 01/06/22 Multivitamins, Thera [Multivitamin 1 tab PO DAILY 12/07/21 01/06/22 (formulary)] SUMAtriptan succinate [Imitrex] 100 mg PO DAILY PRN 12/07/21 01/06/22 Semaglutide [Rybelsus] 14 mg PO DAILY 01/06/22 01/06/22 Previous Rx's Medication Instructions Recorded Ondansetron Odt [Zofran Odt] 4 mg PO Q8H PRN #12 tab 01/06/22 Ondansetron Odt [Zofran Odt] 4 mg PO Q8HR PRN #15 tab 01/12/22 clindamycin HCL [Cleocin] 300 mg PO Q6HR #40 cap 01/21/22 Allergies Allergy/AdvReac Type Severity Reaction Status Date / Time bupropion HCl Allergy Rash/Hives Verified 01/25/22 20:50 [From Wellbutrin] divalproex sodium Allergy Unknown Verified 01/25/22 20:50 [From Depakote] fentanyl Allergy Swelling Verified 01/25/22 20:50 Iodinated Contrast Media Allergy Anaphylaxis Verified 01/25/22 20:50 [Iodinated Contrast Media - IV Dye] orange juice [[place]] Allergy Rash/Hives Verified 01/25/22 20:50 Sulfa (Sulfonamide Allergy Rash/Hives Verified 01/25/22 20:50 Antibiotics) Penicillins AdvReac Rash/Hives/Gi Verified 01/25/22 20:50 Upset Review of Systems ROS Statement: Those systems with pertinent positive or pertinent negative responses have been documented in the HPI. ROS Other: All systems not noted in ROS Statement are negative. Constitutional: Denies: fever, chills Respiratory: Denies: cough, dyspnea Cardiovascular: Denies: chest pain, palpitations, edema Gastrointestinal: Reports: abdominal pain, nausea. 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 History of Any Multi-Drug Resistant Organisms: ESBL Date of last positivie culture/infection: 05/14/17 MDRO Source:: ESBL URINE, Past Surgical History: Bladder Surgery, Section, Cholecystectomy, Hysterectomy, Orthopedic Surgery, Tubal Ligation Additional Past Surgical History / Comment(s): R ovarian cystectomy, laparoscopic surgery for L ovary that had attached to the bowel, D&C, numerous lithotripsies, nephroscopies, cystoscopies and stents to ureters-none in place at this time, L robotic pyeloplasty with post op infection around kidney which then required a picc line/later removed (pt states was not MRSA), L rotator cuff repair, L wrist tendon surgery, colonoscopy. Kidney stone removal. Past Anesthesia/Blood Transfusion Reactions: Family History of Problems w/ Anesthesia Additional Past Anesthesia/Blood Transfusion Reaction / Comment(s): dad-hard time waking up due to enzyme problems in liver Past Psychological History: ADD/ADHD, Anxiety, Bipolar, Depression, PTSD Smoking Status: Current every day smoker Past Alcohol Use History: None Reported Past Drug Use History: None Reported - Past Family History Brother(s) Family Medical History: Cancer Additional Family Medical History / Comment(s): testicular Father Family Medical History: Coronary Artery Disease (CAD), CVA/TIA, Diabetes Mellitus, Renal Disease Additional Family Medical History / Comment(s): GLAUCOMA,NEUROPATHY HAD TRIPLE CABG, at 56yrs from renal disease. Mother Family Medical History: Hyperlipidemia Additional Family Medical History / Comment(s): DDD, HAD 3 vessel CABG AGE 54. General Exam Limitations: no limitations General appearance: alert, in no apparent distress Head exam: Present: atraumatic, normocephalic Eye exam: Present: normal appearance. Absent: scleral icterus, conjunctival injection Neck exam: Present: normal inspection Respiratory exam: Present: normal lung sounds bilaterally. Absent: respiratory distress, wheezes, rales, rhonchi, stridor Cardiovascular Exam: Present: regular rate, normal rhythm, normal heart sounds. Absent: systolic murmur, diastolic murmur, rubs, gallop GI/Abdominal exam: Present: soft. Absent: distended, tenderness, guarding, rebound, rigid, mass Extremities exam: Present: normal inspection, normal capillary refill. Absent: pedal edema, calf tenderness Back exam: Present: normal inspection, CVA tenderness (R). Absent: CVA tenderness (L), paraspinal tenderness, vertebral tenderness Neurological exam: Present: alert Skin exam: Present: warm, dry, intact, normal color. Absent: rash Course Vital Signs 01/25/22 20:48 Temperature 98.3 F Pulse Rate 104 H Respiratory 18 Rate Blood Pressure 107/67 O2 Sat by Pulse 96 Oximetry Medical Decision Making - Lab Data Result diagrams: 01/25/22 21:53 01/25/22 21:53 Lab Results 01/25/22 01/25/22 01/26/22 Range/Units 21:53 21:53 01:12 WBC 10.8 H (3.8-10.6) k/uL RBC 5.37 (3.80-5.40) m/uL Hgb 15.8 (11.4-16.0) gm/dL Hct 46.3 H (34.0-46.0) % MCV 86.2 (80.0-100.0) fL MCH 29.5 (25.0-35.0) pg MCHC 34.2 (31.0-37.0) g/dL RDW 12.4 (11.5-15.5) % Plt Count 321 (150-450) k/uL MPV 7.4 Neutrophils % 49 % Lymphocytes % 42 % Monocytes % 5 % Eosinophils % 3 % Basophils % 1 % Neutrophils # 5.3 (1.3-7.7) k/uL Lymphocytes # 4.5 (1.0-4.8) k/uL Monocytes # 0.5 (0-1.0) k/uL Eosinophils # 0.3 (0-0.7) k/uL Basophils # 0.1 (0-0.2) k/uL Sodium 134 L (137-145) mmol/L Potassium 4.0 (3.5-5.1) mmol/L Chloride 101 (98-107) mmol/L Carbon Dioxide 21 L (22-30) mmol/L Anion Gap 12 mmol/L BUN 12 (7-17) mg/dL Creatinine 0.63 (0.52-1.04) mg/dL Est GFR (CKD-EPI)AfAm >90 (>60 ml/min/1.73 sqM) Est GFR (CKD-EPI)NonAf >90 (>60 ml/min/1.73 sqM) Glucose 153 H (74-99) mg/dL Calcium 10.2 (8.4-10.2) mg/dL Total Bilirubin 1.0 (0.2-1.3) mg/dL AST 50 H (14-36) U/L ALT 50 H (4-34) U/L Alkaline Phosphatase 104 (38-126) U/L Total Protein 7.8 (6.3-8.2) g/dL Albumin 4.7 (3.5-5.0) g/dL Amylase 52 (30-110) U/L Lipase 133 (23-300) U/L Urine Color Yellow Urine Appearance Clear (Clear) Urine pH 5.5 (5.0-8.0) Ur Specific [place] 1.033 (1.001-1.035) Urine Protein Negative (Negative) Urine Glucose (UA) 4+ H (Negative) Urine Ketones Trace H (Negative) Urine Blood Large H (Negative) Urine Nitrite Negative (Negative) Urine Bilirubin Negative (Negative) Urine Urobilinogen <2.0 (<2.0) mg/dL Ur Leukocyte Esterase Negative (Negative) Urine RBC >182 H (0-5) /hpf Urine WBC 3 (0-5) /hpf Ur Squamous Epith Cells 4 (0-4) /hpf Urine HCG, Qual (Not Detectd) 01/26/22 Range/Units 01:13 WBC (3.8-10.6) k/uL RBC (3.80-5.40) m/uL Hgb (11.4-16.0) gm/dL Hct (34.0-46.0) % MCV (80.0-100.0) fL MCH (25.0-35.0) pg MCHC (31.0-37.0) g/dL RDW (11.5-15.5) % Plt Count (150-450) k/uL MPV Neutrophils % % Lymphocytes % % Monocytes % % Eosinophils % % Basophils % % Neutrophils # (1.3-7.7) k/uL Lymphocytes # (1.0-4.8) k/uL Monocytes # (0-1.0) k/uL Eosinophils # (0-0.7) k/uL Basophils # (0-0.2) k/uL Sodium (137-145) mmol/L Potassium (3.5-5.1) mmol/L Chloride (98-107) mmol/L Carbon Dioxide (22-30) mmol/L Anion Gap mmol/L BUN (7-17) mg/dL Creatinine (0.52-1.04) mg/dL Est GFR (CKD-EPI)AfAm (>60 ml/min/1.73 sqM) Est GFR (CKD-EPI)NonAf (>60 ml/min/1.73 sqM) Glucose (74-99) mg/dL Calcium (8.4-10.2) mg/dL Total Bilirubin (0.2-1.3) mg/dL AST (14-36) U/L ALT (4-34) U/L Alkaline Phosphatase (38-126) U/L Total Protein (6.3-8.2) g/dL Albumin (3.5-5.0) g/dL Amylase (30-110) U/L Lipase (23-300) U/L Urine Color Urine Appearance (Clear) Urine pH (5.0-8.0) Ur Specific [place] (1.001-1.035) Urine Protein (Negative) Urine Glucose (UA) (Negative) Urine Ketones (Negative) Urine Blood (Negative) Urine Nitrite (Negative) Urine Bilirubin (Negative) Urine Urobilinogen (<2.0) mg/dL Ur Leukocyte Esterase (Negative) Urine RBC (0-5) /hpf Urine WBC (0-5) /hpf Ur Squamous Epith Cells (0-4) /hpf Urine HCG, Qual Not Detected (Not Detectd) Disposition Clinical Impression: Right flank pain Disposition: HOME SELF-CARE Condition: Good Instructions (If sedation given, give patient instructions): Acute Low Back Pain (ED) Is patient prescribed a controlled substance at d/c from ED?: No Referrals: None,Stated [Primary Care Provider] - 1-2 days
[2022-01-25 22:03] LABS: Basophils # (A) 0.1 k/uL (0-0.2); Basophils % (A) 1 %; Eosinophils # (A) 0.3 k/uL (0-0.7); Eosinophils % (A) 3 %; HCT 46.3 % (34.0-46.0); HGB 15.8 gm/dL (11.4-16.0); Lymphocytes # (A) 4.5 k/uL (1.0-4.8); Lymphocytes % (A) 42 %; MCH 29.5 pg (25.0-35.0); MCHC 34.2 g/dL (31.0-37.0); MCV 86.2 fL (80.0-100.0); Mean Platelet Volume 7.4; Monocytes # (A) 0.5 k/uL (0-1.0); Monocytes % (A) 5 %; Neutrophils # (A) 5.3 k/uL (1.3-7.7); Neutrophils % (A) 49 %; Platelet Count 321 k/uL (150-450); RBC 5.37 m/uL (3.80-5.40); RDW 12.4 % (11.5-15.5); WBC 10.8 k/uL (3.8-10.6)
[2022-01-25 22:11] LABS: ALT 50 U/L (4-34); AST 50 U/L (14-36); African American GFR (CKD) >90 (>60 ml/min/1.73 sqM); Albumin 4.7 g/dL (3.5-5.0); Alkaline Phosphatase 104 U/L (38-126); Amylase 52 U/L (30-110); Anion Gap 12 mmol/L; Blood Urea Nitrogen 12 mg/dL (7-17); Calcium 10.2 mg/dL (8.4-10.2); Carbon Dioxide 21 mmol/L (22-30); Chloride 101 mmol/L (98-107); Glucose 153 mg/dL (74-99); Lipase 133 U/L (23-300); Non-African American GFR(CKD) >90 (>60 ml/min/1.73 sqM); Sodium 134 mmol/L (137-145); Total Protein 7.8 g/dL (6.3-8.2)
[2022-01-25] MEDS ORDERED: ONDANSETRON 4 MG/2 ML VIAL IVP STA (23:13)
[2022-01-25] MEDS ORDERED: MORPHINE SULFATE 4 MG/ML SYRINGE IV STA (23:13)
[2022-01-26 01:24] LABS: Appearance,Urine Clear (Clear); Bilirubin,Urine Negative (Negative); Blood,Urine Large (Negative); Color,Urine Yellow; Glucose,Urine (UA) 4+ (Negative); Ketones,Urine Trace (Negative); Leukocyte Esterase,Urine Negative (Negative); Nitrite,Urine Negative (Negative); PH, Urine 5.5 (5.0-8.0); Protein,Urine Negative (Negative); RBC,Urine >182 /hpf (0-5); Specific Gravity,Urine 1.033 (1.001-1.035); Squamous Epithelial Cell,Urine 4 /hpf (0-4); Urobilinogen,Urine <2.0 mg/dL (<2.0); WBC,Urine 3 /hpf (0-5)
[2022-01-26] MEDS ORDERED: MORPHINE SULFATE 4 MG/ML SYRINGE IV STA (01:36)
== END 2022-01-26 01:58 | disposition home or self-care (01) ==
LOC: EC 20:20
DX: R10.9 Unspecified abdominal pain (principal); E11.9 Type 2 diabetes mellitus without complications; K21.9 Gastro-esophageal reflux disease without esophagitis; I12.9 Hypertensive chronic kidney disease with stage 1 through stage 4 chronic kidney disease, or unspecified chronic kidney disease; N18.9 Chronic kidney disease, unspecified; F41.9 Anxiety disorder, unspecified; F31.9 Bipolar disorder, unspecified; F17.200 Nicotine dependence, unspecified, uncomplicated; Z88.8 Allergy status to other drugs, medicaments and biological substances; Z91.041 Radiographic dye allergy status; Z91.018 Allergy to other foods; Z88.2 Allergy status to sulfonamides; Z88.0 Allergy status to penicillin; Z79.899 Other long term (current) drug therapy
CPT/HCPCS: 36415; 80053; 82150; 83690; 85025; 81001; 81025; 99284; 96374; 96375 ×2; J2270 ×2; J2405

== ENCOUNTER 2022-02-14 20:52 | Emergency (ER) | payer BC, OTHER ==
[2022-02-14 21:05] VITALS: RESP 18; TEMP 98
[2022-02-15] MEDS ORDERED: SODIUM CHLORIDE 0.9% 1,000 ML IV STA (01:27)
[2022-02-15] MEDS ORDERED: diphenhydrAMINE 50 MG/ML 1 ML VIAL IVP STA (01:28)
[2022-02-15] MEDS ORDERED: PROCHLORPERAZINE INJ 10 MG/2 ML VIAL IVP STA (01:28)
[2022-02-15] MEDS ORDERED: HYDROmorphone 1 MG/ML 1 ML SYRINGE IVP STA (01:29)
--- NOTE | 2022-02-15 01:30 | ED ---
Recheck HPI - General Chief Complaint: Back Pain/Injury Stated Complaint: flank pain, post kidney stone removal Time Seen by Provider: 02/15/22 01:11 Source: patient, RN notes reviewed, old records reviewed Mode of arrival: ambulatory Limitations: no limitations - History of Present Illness Initial Comments: This is a 46-year-old female to the ER for evaluation patient presents today for evaluation in regards to significant pain chronic pain with nausea and vomiting. MD Complaint: medication refill request -: hour(s) Returns Today for: Called Because of Abnormal Lab/Test Symptoms Since Prior Visit: worsening pain Context: ran out of medication Treatments Prior to Arrival: Given Pain Meds on - Related Data Home Medications Medication Instructions Recorded Confirmed oxyCODONE-APAP 10-325MG [Percocet 1 tab PO QID PRN 08/29/17 01/06/22 10-325 mg] PARoxetine HCL [Paxil] 40 mg PO DAILY 03/12/18 01/06/22 PARoxetine [Paxil] 20 mg PO DAILY 06/04/18 01/06/22 Loratadine 10 mg PO DAILY 04/21/20 01/06/22 Dapagliflozin Propanediol [Farxiga] 10 mg PO DAILY 12/07/21 01/06/22 Dextroamphetamine/Amphetamine 20 mg PO BID 12/07/21 01/06/22 [Dextroamp-Amphetamin 20 mg Tab] Glimepiride [Amaryl] 4 mg PO DAILY 12/07/21 01/06/22 Multivitamins, Thera [Multivitamin 1 tab PO DAILY 12/07/21 01/06/22 (formulary)] SUMAtriptan succinate [Imitrex] 100 mg PO DAILY PRN 12/07/21 01/06/22 Semaglutide [Rybelsus] 14 mg PO DAILY 01/06/22 01/06/22 Previous Rx's Medication Instructions Recorded Ondansetron Odt [Zofran Odt] 4 mg PO Q8H PRN #12 tab 01/06/22 Ondansetron Odt [Zofran Odt] 4 mg PO Q8HR PRN #15 tab 01/12/22 clindamycin HCL [Cleocin] 300 mg PO Q6HR #40 cap 01/21/22 Allergies Allergy/AdvReac Type Severity Reaction Status Date / Time bupropion HCl Allergy Rash/Hives Verified 02/14/22 21:05 [From Wellbutrin] divalproex sodium Allergy Unknown Verified 02/14/22 21:05 [From Depakote] fentanyl Allergy Swelling Verified 02/14/22 21:05 Iodinated Contrast Media Allergy Anaphylaxis Verified 02/14/22 21:05 [Iodinated Contrast Media - IV Dye] orange juice [[place]less] Allergy Rash/Hives Verified 02/14/22 21:05 Sulfa (Sulfonamide Allergy Rash/Hives Verified 02/14/22 21:05 Antibiotics) Penicillins AdvReac Rash/Hives/Gi Verified 02/14/22 21:05 Upset Review of Systems ROS Statement: Those systems with pertinent positive or pertinent negative responses have been documented in the HPI. ROS Other: All systems not noted in ROS Statement are negative. 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 History of Any Multi-Drug Resistant Organisms: ESBL Date of last positivie culture/infection: 05/14/17 MDRO Source:: ESBL URINE, Past Surgical History: Bladder Surgery, Section, Cholecystectomy, Hysterectomy, Orthopedic Surgery, Tubal Ligation Additional Past Surgical History / Comment(s): R ovarian cystectomy, laparoscopic surgery for L ovary that had attached to the bowel, D&C, numerous lithotripsies, nephroscopies, cystoscopies and stents to ureters-none in place at this time, L robotic pyeloplasty with post op infection around kidney which then required a picc line/later removed (pt states was not MRSA), L rotator cuff repair, L wrist tendon surgery, colonoscopy. Kidney stone removal. Past Anesthesia/Blood Transfusion Reactions: Family History of Problems w/ Anesthesia Additional Past Anesthesia/Blood Transfusion Reaction / Comment(s): dad-hard time waking up due to enzyme problems in liver Past Psychological History: ADD/ADHD, Anxiety, Bipolar, Depression, PTSD Smoking Status: Current every day smoker Past Alcohol Use History: None Reported Past Drug Use History: None Reported - Past Family History Brother(s) Family Medical History: Cancer Additional Family Medical History / Comment(s): testicular Father Family Medical History: Coronary Artery Disease (CAD), CVA/TIA, Diabetes Mellitus, Renal Disease Additional Family Medical History / Comment(s): GLAUCOMA,NEUROPATHY HAD TRIPLE CABG, at 56yrs from renal disease. Mother Family Medical History: Hyperlipidemia Additional Family Medical History / Comment(s): DDD, HAD 3 vessel CABG AGE 54. General Exam Limitations: no limitations General appearance: alert, in no apparent distress, anxious Head exam: Present: atraumatic, normocephalic, normal inspection Eye exam: Present: normal appearance, PERRL, EOMI. Absent: scleral icterus, conjunctival injection, periorbital swelling ENT exam: Present: normal exam, mucous membranes moist Neck exam: Present: normal inspection. Absent: tenderness, meningismus, lymphadenopathy Respiratory exam: Present: normal lung sounds bilaterally. Absent: respiratory distress, wheezes, rales, rhonchi, stridor Cardiovascular Exam: Present: regular rate, normal rhythm, normal heart sounds. Absent: systolic murmur, diastolic murmur, rubs, gallop, clicks GI/Abdominal exam: Present: soft, normal bowel sounds. Absent: distended, tenderness, guarding, rebound, rigid Extremities exam: Present: normal inspection, full ROM, normal capillary refill. Absent: tenderness, pedal edema, joint swelling, calf tenderness Back exam: Present: normal inspection Neurological exam: Present: alert, oriented X3, CN II-XII intact Psychiatric exam: Present: normal affect, normal mood Skin exam: Present: warm, dry, intact, normal color. Absent: rash Course Vital Signs 02/14/22 21:04 Temperature 98 F Pulse Rate 106 H Respiratory 18 Rate Blood Pressure 113/72 O2 Sat by Pulse 98 Oximetry - Reevaluation(s) Reevaluation #1: 02/15/22 01:39 Medical record is reviewed Reevaluation #2: 02/15/22 01:39 Patient informed results and questions answered Reevaluation #3: 02/15/22 02:39 Patient has adequate pain control Medical Decision Making - Medical Decision Making 46 female DF for evaluation of acute chronic pain with nausea vomiting. Symptoms are significantly improved here in the ER and patient can be discharged home Disposition Clinical Impression: Intractable pain, Renal colic Disposition: HOME SELF-CARE Condition: Good Instructions (If sedation given, give patient instructions): Abdominal Pain (ED) Is patient prescribed a controlled substance at d/c from ED?: No Referrals: None,Stated [Primary Care Provider] - 1-2 days Time of Disposition: 03:40
[2022-02-15 03:59] LABS: Basophils # (A) 0.1 k/uL (0-0.2); Basophils % (A) 1 %; Eosinophils # (A) 0.4 k/uL (0-0.7); Eosinophils % (A) 3 %; HCT 43.9 % (34.0-46.0); HGB 14.6 gm/dL (11.4-16.0); Lymphocytes # (A) 4.8 k/uL (1.0-4.8); Lymphocytes % (A) 44 %; MCH 29.4 pg (25.0-35.0); MCHC 33.2 g/dL (31.0-37.0); MCV 88.4 fL (80.0-100.0); Mean Platelet Volume 7.4; Monocytes # (A) 0.6 k/uL (0-1.0); Monocytes % (A) 5 %; Neutrophils % (A) 45 %; Platelet Count 254 k/uL (150-450); RBC 4.96 m/uL (3.80-5.40); RDW 12.6 % (11.5-15.5); WBC 11.1 k/uL (3.8-10.6)
[2022-02-15 04:14] LABS: ALT 37 U/L (4-34); AST 36 U/L (14-36); African American GFR (CKD) >90 (>60 ml/min/1.73 sqM); Albumin 4.2 g/dL (3.5-5.0); Alkaline Phosphatase 90 U/L (38-126); Amylase 58 U/L (30-110); Anion Gap 13 mmol/L; Blood Urea Nitrogen 16 mg/dL (7-17); Calcium 9.3 mg/dL (8.4-10.2); Carbon Dioxide 20 mmol/L (22-30); Chloride 101 mmol/L (98-107); Glucose 168 mg/dL (74-99); Lipase 189 U/L (23-300); Non-African American GFR(CKD) >90 (>60 ml/min/1.73 sqM); Potassium 4.1 mmol/L (3.5-5.1); Sodium 134 mmol/L (137-145); Total Bilirubin 0.6 mg/dL (0.2-1.3); Total Protein 6.8 g/dL (6.3-8.2)
[2022-02-15 06:20] VITALS: BP 122/68; PULSE 86
== END 2022-02-15 06:21 | disposition home or self-care (01) ==
LOC: EC 20:52
DX: N23 Unspecified renal colic (principal); G89.4 Chronic pain syndrome; E11.9 Type 2 diabetes mellitus without complications; K21.9 Gastro-esophageal reflux disease without esophagitis; E78.5 Hyperlipidemia, unspecified; N18.9 Chronic kidney disease, unspecified; I12.9 Hypertensive chronic kidney disease with stage 1 through stage 4 chronic kidney disease, or unspecified chronic kidney disease; F41.9 Anxiety disorder, unspecified; F31.9 Bipolar disorder, unspecified; F17.200 Nicotine dependence, unspecified, uncomplicated; Z88.8 Allergy status to other drugs, medicaments and biological substances; Z88.1 Allergy status to other antibiotic agents; Z88.6 Allergy status to analgesic agent; Z91.041 Radiographic dye allergy status; Z91.018 Allergy to other foods; Z88.2 Allergy status to sulfonamides; Z88.0 Allergy status to penicillin; Z79.899 Other long term (current) drug therapy
CPT/HCPCS: 36415; 80053; 82150; 83690; 85025; 99284; 96374; 96375 ×2; 96361; J1200; J0780; J1170

== ENCOUNTER 2022-02-18 01:14 | Emergency (ER) | payer BC, OTHER ==
[2022-02-18 01:24] VITALS: BP 123/79; TEMP 97.8
[2022-02-18] MEDS ORDERED: MORPHINE SULFATE 4 MG/ML SYRINGE IV STA ×2 (01:39→04:00)
[2022-02-18] MEDS ORDERED: SODIUM CHLORIDE 0.9% 1,000 ML IV STA (01:39)
[2022-02-18] MEDS ORDERED: ONDANSETRON 4 MG/2 ML VIAL IVP STA (01:39)
--- NOTE | 2022-02-18 02:03 | ED ---
Abdominal Pain HPI - General Chief Complaint: Abdominal Pain Stated Complaint: flank pain Time Seen by Provider: 02/18/22 01:39 Source: patient, RN notes reviewed Mode of arrival: ambulatory Limitations: no limitations - History of Present Illness Initial Comments: This is a 46-year-old female who is a frequent visitor to this emergency department. She states that she had a ureteral stent placed 8 days ago. Patient states since she went for follow-up appointment stent removed on Sunday. Patient states she was okay for a couple days and developed flank pain and hematuria again today. No headache, no fever or chills, no changes in vision or hearing, no sore throat or difficulty with speech, no neck pain, no chest pain or shortness of breath, no abdominal pain, no nausea or vomiting, no changes in urination or bowel movements, no numbness or tingling, no extremity pain, no skin rashes or lesions. Past medical, surgical, social, and family history reviewed. - Related Data Home Medications Medication Instructions Recorded Confirmed oxyCODONE-APAP 10-325MG [Percocet 1 tab PO QID PRN 08/29/17 01/06/22 10-325 mg] PARoxetine HCL [Paxil] 40 mg PO DAILY 03/12/18 01/06/22 PARoxetine [Paxil] 20 mg PO DAILY 06/04/18 01/06/22 Loratadine 10 mg PO DAILY 04/21/20 01/06/22 Dapagliflozin Propanediol [Farxiga] 10 mg PO DAILY 12/07/21 01/06/22 Dextroamphetamine/Amphetamine 20 mg PO BID 12/07/21 01/06/22 [Dextroamp-Amphetamin 20 mg Tab] Glimepiride [Amaryl] 4 mg PO DAILY 12/07/21 01/06/22 Multivitamins, Thera [Multivitamin 1 tab PO DAILY 12/07/21 01/06/22 (formulary)] SUMAtriptan succinate [Imitrex] 100 mg PO DAILY PRN 12/07/21 01/06/22 Semaglutide [Rybelsus] 14 mg PO DAILY 01/06/22 01/06/22 Previous Rx's Medication Instructions Recorded Ondansetron Odt [Zofran Odt] 4 mg PO Q8H PRN #12 tab 01/06/22 Ondansetron Odt [Zofran Odt] 4 mg PO Q8HR PRN #15 tab 01/12/22 clindamycin HCL [Cleocin] 300 mg PO Q6HR #40 cap 01/21/22 Allergies Allergy/AdvReac Type Severity Reaction Status Date / Time bupropion HCl Allergy Rash/Hives Verified 02/18/22 01:24 [From Wellbutrin] divalproex sodium Allergy Unknown Verified 02/18/22 01:24 [From Depakote] fentanyl Allergy Swelling Verified 02/18/22 01:24 Iodinated Contrast Media Allergy Anaphylaxis Verified 02/18/22 01:24 [Iodinated Contrast Media - IV Dye] orange juice [[place]] Allergy Rash/Hives Verified 02/18/22 01:24 Sulfa (Sulfonamide Allergy Rash/Hives Verified 02/18/22 01:24 Antibiotics) Penicillins AdvReac Rash/Hives/Gi Verified 02/18/22 01:24 Upset Review of Systems ROS Statement: Those systems with pertinent positive or pertinent negative responses have been documented in the HPI. ROS Other: All systems not noted in ROS Statement are negative. 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 History of Any Multi-Drug Resistant Organisms: ESBL Date of last positivie culture/infection: 05/14/17 MDRO Source:: ESBL URINE, Past Surgical History: Bladder Surgery, Section, Cholecystectomy, Hysterectomy, Orthopedic Surgery, Tubal Ligation Additional Past Surgical History / Comment(s): R ovarian cystectomy, laparoscopic surgery for L ovary that had attached to the bowel, D&C, numerous lithotripsies, nephroscopies, cystoscopies and stents to ureters-none in place at this time, L robotic pyeloplasty with post op infection around kidney which then required a picc line/later removed (pt states was not MRSA), L rotator cuff repair, L wrist tendon surgery, colonoscopy. Kidney stone removal. Past Anesthesia/Blood Transfusion Reactions: Family History of Problems w/ Anesthesia Additional Past Anesthesia/Blood Transfusion Reaction / Comment(s): dad-hard time waking up due to enzyme problems in liver Past Psychological History: ADD/ADHD, Anxiety, Bipolar, Depression, PTSD Smoking Status: Current every day smoker Past Alcohol Use History: None Reported Past Drug Use History: None Reported - Past Family History Brother(s) Family Medical History: Cancer Additional Family Medical History / Comment(s): testicular Father Family Medical History: Coronary Artery Disease (CAD), CVA/TIA, Diabetes Mellitus, Renal Disease Additional Family Medical History / Comment(s): GLAUCOMA,NEUROPATHY HAD TRIPLE C ABG, at 56yrs from renal disease. Mother Family Medical History: Hyperlipidemia Additional Family Medical History / Comment(s): DDD, HAD 3 vessel CABG AGE 54. General Exam Limitations: no limitations General appearance: alert, in no apparent distress Head exam: Present: atraumatic, normocephalic, normal inspection Eye exam: Present: normal appearance, PERRL, EOMI. Absent: scleral icterus, conjunctival injection, periorbital swelling ENT exam: Present: normal exam, mucous membranes moist Neck exam: Present: normal inspection. Absent: tenderness, meningismus, l ymphadenopathy Respiratory exam: Present: normal lung sounds bilaterally. Absent: respiratory distress, wheezes, rales, rhonchi, stridor Cardiovascular Exam: Present: normal rhythm, tachycardia, normal heart sounds. Absent: systolic murmur, diastolic murmur, rubs, gallop, clicks GI/Abdominal exam: Present: soft, normal bowel sounds. Absent: distended, tenderness, guarding, rebound, rigid Extremities exam: Present: normal inspection, full ROM, normal capillary refill. Absent: tenderness, pedal edema, joint swelling, calf tenderness Back exam: Present: normal inspection, CVA tenderness (L). Absent: CVA tenderness (R) Neurological exam: Present: alert, oriented X3, CN II-XII intact Psychiatric exam: Present: normal affect, normal mood Skin exam: Present: warm, dry, intact, normal color. Absent: rash Course Vital Signs 02/18/22 02/18/22 01:20 02:31 Temperature 97.8 F Pulse Rate 122 H 99 Respiratory 24 18 Rate Blood Pressure 123/79 O2 Sat by Pulse 98 98 Oximetry Medical Decision Making - Medical Decision Making CT impression shows fullness of left renal pelvis without change compared to the old exam no ureteral calculus seen, left ureter is not dilated, right renal calculus increased in size compared to the old exams Medical record is reviewed Symptoms are improved here in the emergency department Patient is informed of results and questions answered Patient in no distress Patient was told to return to the ER for any signs or symptoms worsen. Told to return immediately if any other problems arise. All questions answered. Treatment plan discussed. Patient in agreement Every effort has been made to ensure accuracy of this dictation. However, due to the limitations of electronic medical records and dictation devices, errors in charting still occur. The case was discussed in detail with ED attending physician. Presentation, findings, treatment plan discussed in detail. Pattern [facility] Dr[facility] - Lab Data Result diagrams: 02/18/22 02:29 02/18/22 02:29 Lab Results 02/18/22 02/18/22 02/18/22 Range/Units 02:29 02:29 02:29 WBC 13.0 H (3.8-10.6) k/uL RBC 5.22 (3.80-5.40) m/uL Hgb 15.4 (11.4-16.0) gm/dL Hct 45.6 (34.0-46.0) % MCV 87.2 (80.0-100.0) fL MCH 29.4 (25.0-35.0) pg MCHC 33.7 (31.0-37.0) g/dL RDW 12.6 (11.5-15.5) % Plt Count 288 (150-450) k/uL MPV 7.6 Neutrophils % 54 % Lymphocytes % 37 % Monocytes % 5 % Eosinophils % 2 % Basophils % 1 % Neutrophils # 7.0 (1.3-7.7) k/uL Lymphocytes # 4.9 H (1.0-4.8) k/uL Monocytes # 0.7 (0-1.0) k/uL Eosinophils # 0.3 (0-0.7) k/uL Basophils # 0.1 (0-0.2) k/uL Sodium 138 (137-145) mmol/L Potassium 3.7 (3.5-5.1) mmol/L Chloride 103 (98-107) mmol/L Carbon Dioxide 19 L (22-30) mmol/L Anion Gap 16 mmol/L BUN 10 (7-17) mg/dL Creatinine 0.67 (0.52-1.04) mg/dL Est GFR (CKD-EPI)AfAm >90 (>60 ml/min/1.73 sqM) Est GFR (CKD-EPI)NonAf >90 (>60 ml/min/1.73 sqM) Glucose 289 H (74-99) mg/dL Calcium 9.3 (8.4-10.2) mg/dL Total Bilirubin 0.4 (0.2-1.3) mg/dL AST 26 (14-36) U/L ALT 35 H (4-34) U/L Alkaline Phosphatase 91 (38-126) U/L Total Protein 7.0 (6.3-8.2) g/dL Albumin 4.4 (3.5-5.0) g/dL Lipase 235 (23-300) U/L Urine Color Yellow Urine Appearance Clear (Clear) Urine pH 5.5 (5.0-8.0) Ur Specific Leroy 1.035 (1.001-1.035) Urine Protein Negative (Negative) Urine Glucose (UA) 4+ H (Negative) Urine Ketones Negative (Negative) Urine Blood Large H (Negative) Urine Nitrite Negative (Negative) Urine Bilirubin Negative (Negative) Urine Urobilinogen <2.0 (<2.0) mg/dL Ur Leukocyte Esterase Negative (Negative) Urine RBC >182 H (0-5) /hpf Urine WBC 5 (0-5) /hpf Ur Squamous Epith Cells 1 (0-4) /hpf Disposition Clinical Impression: Left flank pain, chronic Disposition: HOME SELF-CARE Condition: Good Instructions (If sedation given, give patient instructions): Flank Pain (ED) Additional Instructions: Follow-up with your regular physician as directed. Return to the ER immediately if any symptoms worsen, new symptoms arise, or any other problems develop. Follow-up with your urologist as soon as possible Is patient prescribed a controlled substance at d/c from ED?: No Referrals: Rajiv Sexton MD [Primary Care Provider] - 1-2 days Time of Disposition: 04:01
[2022-02-18 02:32] VITALS: PULSE 99; RESP 18
[2022-02-18 02:54] LABS: Basophils # (A) 0.1 k/uL (0-0.2); Basophils % (A) 1 %; Eosinophils # (A) 0.3 k/uL (0-0.7); Eosinophils % (A) 2 %; HCT 45.6 % (34.0-46.0); HGB 15.4 gm/dL (11.4-16.0); Lymphocytes # (A) 4.9 k/uL (1.0-4.8); Lymphocytes % (A) 37 %; MCH 29.4 pg (25.0-35.0); MCHC 33.7 g/dL (31.0-37.0); MCV 87.2 fL (80.0-100.0); Mean Platelet Volume 7.6; Monocytes # (A) 0.7 k/uL (0-1.0); Monocytes % (A) 5 %; Neutrophils % (A) 54 %; Platelet Count 288 k/uL (150-450); RBC 5.22 m/uL (3.80-5.40); RDW 12.6 % (11.5-15.5)
[2022-02-18 03:13] LABS: ALT 35 U/L (4-34); AST 26 U/L (14-36); African American GFR (CKD) >90 (>60 ml/min/1.73 sqM); Albumin 4.4 g/dL (3.5-5.0); Alkaline Phosphatase 91 U/L (38-126); Anion Gap 16 mmol/L; Blood Urea Nitrogen 10 mg/dL (7-17); Calcium 9.3 mg/dL (8.4-10.2); Carbon Dioxide 19 mmol/L (22-30); Chloride 103 mmol/L (98-107); Glucose 289 mg/dL (74-99); Lipase 235 U/L (23-300); Non-African American GFR(CKD) >90 (>60 ml/min/1.73 sqM); Potassium 3.7 mmol/L (3.5-5.1); Sodium 138 mmol/L (137-145); Total Bilirubin 0.4 mg/dL (0.2-1.3)
[2022-02-18 03:33] LABS: Appearance,Urine Clear (Clear); Bilirubin,Urine Negative (Negative); Blood,Urine Large (Negative); Color,Urine Yellow; Glucose,Urine (UA) 4+ (Negative); Ketones,Urine Negative (Negative); Leukocyte Esterase,Urine Negative (Negative); Nitrite,Urine Negative (Negative); PH, Urine 5.5 (5.0-8.0); Protein,Urine Negative (Negative); RBC,Urine >182 /hpf (0-5); Specific Gravity,Urine 1.035 (1.001-1.035); Squamous Epithelial Cell,Urine 1 /hpf (0-4); Urobilinogen,Urine <2.0 mg/dL (<2.0); WBC,Urine 5 /hpf (0-5)
--- NOTE | 2022-02-18 03:37 | CT ---
EXAMINATION TYPE: CT abdomen pelvis wo con DATE OF EXAM: 02/18/2022 COMPARISON: 09/08/2020 HISTORY: Left flank pain. CT DLP: 560.3 mGycm Automated exposure control for dose reduction was used. Images obtained from the diaphragm to the floor the pelvis with no contrast. Lung bases are clear. No pleural effusion. Heart size is normal. No pericardial effusion. Liver splee n and stomach pancreas appear intact. The bile ducts are not dilated. There are clips from cholecyste ctomy. There is no adrenal mass. Kidneys have normal size. No evidence of a renal mass. There is 4 mm calcul us lateral right kidney. There is fullness of the left renal pelvis. Left ureter is not dilated. No e vidence of left-sided ureteral calculus. No retroperitoneal adenopathy. The bladder distends smoothly . No inguinal hernia. No evidence of a pelvic mass. Appendix is posterior and appears normal. There is no mesenteric edema. No ascites or free air. No sign of a bowel obstruction. The lumbar spin e is intact. No compression fracture. Bony pelvis is intact. The hip joints are intact. IMPRESSION: There is some fullness of the left renal pelvis without change compared to the old exam. No ureteral calculus seen. Left ureter not dilated. Right renal calculus increased in size compared to old exams Nonobstructing right-sided small renal calculus. Normal appendix.
== END 2022-02-18 04:46 | disposition home or self-care (01) ==
LOC: EC 01:14
DX: R10.9 Unspecified abdominal pain (principal); E11.9 Type 2 diabetes mellitus without complications; K21.9 Gastro-esophageal reflux disease without esophagitis; Z79.899 Other long term (current) drug therapy; E78.5 Hyperlipidemia, unspecified; I10 Essential (primary) hypertension; F17.200 Nicotine dependence, unspecified, uncomplicated; Z88.3 Allergy status to other anti-infective agents; Z88.6 Allergy status to analgesic agent; Z88.0 Allergy status to penicillin
CPT/HCPCS: 36415; 80053; 83690; 85025; 81001; 74176; 99284; 96374; 96375; 96376; 96361; J2270; J2405

== ENCOUNTER 2022-02-20 23:04 | Emergency (ER) | payer BC, OTHER ==
[2022-02-21 00:21] LABS: Appearance,Urine Clear (Clear); Bilirubin,Urine Negative (Negative); Blood,Urine Large (Negative); Color,Urine Yellow; Glucose,Urine (UA) 4+ (Negative); Hyaline Casts,Urine 5 /lpf (0-2); Ketones,Urine Trace (Negative); Leukocyte Esterase,Urine Small (Negative); Nitrite,Urine Negative (Negative); Protein,Urine Trace (Negative); RBC,Urine >182 /hpf (0-5); Specific Gravity,Urine 1.026 (1.001-1.035); Squamous Epithelial Cell,Urine 1 /hpf (0-4); Urobilinogen,Urine <2.0 mg/dL (<2.0); WBC,Urine 28 /hpf (0-5)
[2022-02-21] MEDS ORDERED: SODIUM CHLORIDE 0.9% 1,000 ML IV STA (00:42)
[2022-02-21] MEDS ORDERED: MORPHINE SULFATE 2 MG/ML SYRINGE IV STA (00:42)
[2022-02-21] MEDS ORDERED: METOCLOPRAMIDE 5 MG/ML 2 ML VIAL IVP STA (00:43)
--- NOTE | 2022-02-21 01:02 | ED ---
General Adult HPI - General Source: patient Mode of arrival: ambulatory Limitations: no limitations <Jame Huffman - Last Filed: 02/21/22 00:45> <Ignacio Linda - Last Filed: 02/21/22 03:24> - General Chief complaint: Back Pain/Injury Stated complaint: right flank pain - History of Present Illness Initial comments: This 46-year-old female presents complaining of some right flank pain as well as nausea and vomiting. She does have a long history of previous similar related to kidney stones. She is here multiple times per month in this regard. She relates that her symptomatologies came on approximately 16 hours ago. She has vomited multiple times throughout today. She has not been able to keep her medications down well. She feels as though she is dehydrated. She was seen 2 days ago and had a computed tomography scan of her abdomen and pelvis at that time as she is having left flank pain. This did not show any evidence of left kidney stone or ureteral stone but did show a 4 mm right nephrolithiasis. She states that the pain is now on her right side stone may be causing her pain. She states that she is scheduled to have it removed by her urologist in the near future. She has chronic hematuria but otherwise denies any dysuria or frequency with urination. She denies any fevers or chills. She denies any possibility of as she's had a hysterectomy. No other complaints or modifying factors. (Jame Huffman) - Related Data Home Medications Medication Instructions Recorded Confirmed oxyCODONE-APAP 10-325MG [Percocet 1 tab PO QID PRN 08/29/17 01/06/22 10-325 mg] PARoxetine HCL [Paxil] 40 mg PO DAILY 03/12/18 01/06/22 PARoxetine [Paxil] 20 mg PO DAILY 06/04/18 01/06/22 Loratadine 10 mg PO DAILY 04/21/20 01/06/22 Dapagliflozin Propanediol [Farxiga] 10 mg PO DAILY 12/07/21 01/06/22 Dextroamphetamine/Amphetamine 20 mg PO BID 12/07/21 01/06/22 [Dextroamp-Amphetamin 20 mg Tab] Glimepiride [Amaryl] 4 mg PO DAILY 12/07/21 01/06/22 Multivitamins, Thera [Multivitamin 1 tab PO DAILY 12/07/21 01/06/22 (formulary)] SUMAtriptan succinate [Imitrex] 100 mg PO DAILY PRN 12/07/21 01/06/22 Semaglutide [Rybelsus] 14 mg PO DAILY 01/06/22 01/06/22 Previous Rx's Medication Instructions Recorded Ondansetron Odt [Zofran Odt] 4 mg PO Q8H PRN #12 tab 01/06/22 Ondansetron Odt [Zofran Odt] 4 mg PO Q8HR PRN #15 tab 01/12/22 clindamycin HCL [Cleocin] 300 mg PO Q6HR #40 cap 01/21/22 Cephalexin [Keflex] 500 mg PO Q6HR #40 cap 02/21/22 Promethazine Suppository 25 mg RECTAL TID PRN #15 supp 02/21/22 [Phenergan] Allergies Allergy/AdvReac Type Severity Reaction Status Date / Time bupropion HCl Allergy Rash/Hives Verified 02/20/22 23:12 [From Wellbutrin] divalproex sodium Allergy Unknown Verified 02/20/22 23:12 [From Depakote] fentanyl Allergy Swelling Verified 02/20/22 23:12 Iodinated Contrast Media Allergy Anaphylaxis Verified 02/20/22 23:12 [Iodinated Contrast Media - IV Dye] orange juice [[place]] Allergy Rash/Hives Verified 02/20/22 23:12 Sulfa (Sulfonamide Allergy Rash/Hives Verified 02/20/22 23:12 Antibiotics) Penicillins AdvReac Rash/Hives/Gi Verified 02/20/22 23:12 Upset Review of Systems ROS Other: All systems not noted in ROS Statement are negative. <Jame Huffman - Last Filed: 02/21/22 00:45> ROS Other: All systems not noted in ROS Statement are negative. <Ignacio Linda - Last Filed: 02/21/22 03:24> ROS Statement: Those systems with pertinent positive or pertinent negative responses have been documented in the HPI. 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 History of Any Multi-Drug Resistant Organisms: ESBL Date of last positivie culture/infection: 05/14/17 MDRO Source:: ESBL URINE, Past Surgical History: Bladder Surgery, Section, Cholecystectomy, Hysterectomy, Orthopedic Surgery, Tubal Ligation Additional Past Surgical History / Comment(s): R ovarian cystectomy, laparoscopic surgery for L ovary that had attached to the bowel, D&C, numerous lithotripsies, nephroscopies, cystoscopies and stents to ureters-none in place at this time, L robotic pyeloplasty with post op infection around kidney which then required a picc line/later removed (pt states was not MRSA), L rotator cuff repair, L wrist tendon surgery, colonoscopy. Kidney stone removal. Past Anesthesia/Blood Transfusion Reactions: Family History of Problems w/ Anesthesia Additional Past Anesthesia/Blood Transfusion Reaction / Comment(s): dad-hard time waking up due to enzyme problems in liver Past Psychological History: ADD/ADHD, Anxiety, Bipolar, Depression, PTSD Smoking Status: Current every day smoker Past Alcohol Use History: None Reported Past Drug Use History: None Reported - Past Family History Brother(s) Family Medical History: Cancer Additional Family Medical History / Comment(s): testicular Father Family Medical History: Coronary Artery Disease (CAD), CVA/TIA, Diabetes Mellitus, Renal Disease Additional Family Medical History / Comment(s): GLAUCOMA,NEUROPATHY HAD TRIPLE CABG, at 56yrs from renal disease. Mother Family Medical History: Hyperlipidemia Additional Family Medical History / Comment(s): DDD, HAD 3 vessel CABG AGE 54. <Jame Huffman - Last Filed: 02/21/22 00:45> General Exam Limitations: no limitations <Jame Huffman - Last Filed: 02/21/22 00:45> - General Exam Comments Initial Comments: GENERAL: The patient is well nourished and well hydrated. VITAL SIGNS: Heart rate, blood pressure, respiratory rate reviewed as recorded in nurse's notes. EYES: Pupils are round and reactive. Extraocular movements are intact. No conjunctival / lid redness or swelling. ENT: No external evidence of injury, swelling, or ecchymosis. Airway is patent. Throat is clear. NECK: Nontender. No swelling or evidence of injury. No subcutaneous emphysema. Trachea is midline. No thyroid mass. HEART: Regular rate and rhythm. Good peripheral pulses. LUNGS/CHEST: Breath sounds clear and equal bilaterally. No rales, rhonchi, or wheezes. No ecchymosis, subcutaneous emphysema, or tenderness. ABDOMEN: Abdomen soft with mild tenderness to right flank. No palpable masses or organomegaly. No peritoneal signs. No abdominal wall swelling or ecchymosis. EXTREMITIES: No extremity tenderness. Normal muscle tone and function. No thoracolumbar tenderness. NEUROLOGIC: Sensation is grossly intact. Cranial nerve exam reveals face is symmetrical, tongue is midline, speech is clear. SKIN: No abrasions or ecchymosis is noted. No induration or masses noted. PSYCHIATRIC: Alert and oriented. Appropriate behavior and judgment. (Jaem Huffman) Course <Ignacio Linda - Last Filed: 02/21/22 03:24> Vital Signs 02/20/22 02/20/22 23:10 23:11 Temperature 98.2 F 98.1 F Pulse Rate 101 H 92 Respiratory 18 16 Rate Blood Pressure 118/78 123/85 O2 Sat by Pulse 100 94 L Oximetry - Reevaluation(s) Reevaluation #1: 02/21/22 03:24 Medical record is reviewed (Ignacio Linda) Reevaluation #2: 02/21/22 03:24 Patient symptoms are improved here in the emergency department (Ignacio Linda) Medical Decision Making <Jame Huffman - Last Filed: 02/21/22 00:45> - Lab Data Result diagrams: 02/21/22 02:35 02/21/22 02:35 <Ignacio Linda - Last Filed: 02/21/22 03:24> - Medical Decision Making The patient was seen and examined. Urinalysis reveals hematuria as well as possible urinary tract infection. She is given Rocephin, morphine, and Reglan intravenously. She is given ample fluid hydration. It is not felt as though a repeat computed tomography scan is necessary. She is essentially refusing this as she has had some anemia in the past. Laboratory is ordered and is pending. Case will be passed off to oncoming physician. (Jame Huffman) 46 female with nausea vomiting and abdominal pain. Patient feeling significantly improved here in the ER and can be discharged home (Ignacio Linad) - Lab Data Lab Results 02/20/22 02/20/22 02/21/22 Range/Units 23:55 23:55 02:35 WBC 10.4 (3.8-10.6) k/uL RBC 3.99 (3.80-5.40) m/uL Hgb 12.1 D (11.4-16.0) gm/dL Hct 34.6 (34.0-46.0) % MCV 86.9 (80.0-100.0) fL MCH 30.4 (25.0-35.0) pg MCHC 35.0 (31.0-37.0) g/dL RDW 12.9 (11.5-15.5) % Plt Count 253 (150-450) k/uL MPV 7.2 Neutrophils % 55 % Lymphocytes % 37 % Monocytes % 4 % Eosinophils % 2 % Basophils % 0 % Neutrophils # 5.7 (1.3-7.7) k/uL Lymphocytes # 3.9 (1.0-4.8) k/uL Monocytes # 0.4 (0-1.0) k/uL Eosinophils # 0.2 (0-0.7) k/uL Basophils # 0.0 (0-0.2) k/uL Sodium (137-145) mmol/L Potassium (3.5-5.1) mmol/L Chloride (98-107) mmol/L Carbon Dioxide (22-30) mmol/L Anion Gap mmol/L BUN (7-17) mg/dL Creatinine (0.52-1.04) mg/dL Est GFR (CKD-EPI)AfAm (>60 ml/min/1.73 sqM) Est GFR (CKD-EPI)NonAf (>60 ml/min/1.73 sqM) Glucose (74-99) mg/dL Calcium (8.4-10.2) mg/dL Urine Color Yellow Urine Appearance Clear (Clear) Urine pH 7.0 (5.0-8.0) Ur Specific [place] 1.026 (1.001-1.035) Urine Protein Trace H (Negative) Urine Glucose (UA) 4+ H (Negative) Urine Ketones Trace H (Negative) Urine Blood Large H (Negative) Urine Nitrite Negative (Negative) Urine Bilirubin Negative (Negative) Urine Urobilinogen <2.0 (<2.0) mg/dL Ur Leukocyte Esterase Small H (Negative) Urine RBC >182 H (0-5) /hpf Urine WBC 28 H (0-5) /hpf Ur Squamous Epith Cells 1 (0-4) /hpf Hyaline Casts 5 H (0-2) /lpf Urine HCG, Qual Not Detected (Not Detectd) 02/21/22 Range/Units 02:35 WBC (3.8-10.6) k/uL RBC (3.80-5.40) m/uL Hgb (11.4-16.0) gm/dL Hct (34.0-46.0) % MCV (80.0-100.0) fL MCH (25.0-35.0) pg MCHC (31.0-37.0) g/dL RDW (11.5-15.5) % Plt Count (150-450) k/uL MPV Neutrophils % % Lymphocytes % % Monocytes % % Eosinophils % % Basophils % % Neutrophils # (1.3-7.7) k/uL Lymphocytes # (1.0-4.8) k/uL Monocytes # (0-1.0) k/uL Eosinophils # (0-0.7) k/uL Basophils # (0-0.2) k/uL Sodium 137 (137-145) mmol/L Potassium 3.7 (3.5-5.1) mmol/L Chloride 102 (98-107) mmol/L Carbon Dioxide 20 L (22-30) mmol/L Anion Gap 15 mmol/L BUN 17 (7-17) mg/dL Creatinine 0.61 (0.52-1.04) mg/dL Est GFR (CKD-EPI)AfAm >90 (>60 ml/min/1.73 sqM) Est GFR (CKD-EPI)NonAf >90 (>60 ml/min/1.73 sqM) Glucose 222 H (74-99) mg/dL Calcium 9.9 (8.4-10.2) mg/dL Urine Color Urine Appearance (Clear) Urine pH (5.0-8.0) Ur Specific [place] (1.001-1.035) Urine Protein (Negative) Urine Glucose (UA) (Negative) Urine Ketones (Negative) Urine Blood (Negative) Urine Nitrite (Negative) Urine Bilirubin (Negative) Urine Urobilinogen (<2.0) mg/dL Ur Leukocyte Esterase (Negative) Urine RBC (0-5) /hpf Urine WBC (0-5) /hpf Ur Squamous Epith Cells (0-4) /hpf Hyaline Casts (0-2) /lpf Urine HCG, Qual (Not Detectd) Disposition Is patient prescribed a controlled substance at d/c from ED?: No <Jame Huffman - Last Filed: 02/21/22 00:45> Is patient prescribed a controlled substance at d/c from ED?: No Time of Disposition: 03:25 <Ignacio Linda - Last Filed: 02/21/22 03:24> Clinical Impression: Right flank pain, Nephrolithiasis, Nausea and vomiting, Dehydration, Hematuria, Urinary tract infection Disposition: HOME SELF-CARE Condition: Good Instructions (If sedation given, give patient instructions): Kidney Stones (ED), Urinary Tract Infection in Women (ED), Acute Nausea and Vomiting (DC), Flank Pain (ED) Prescriptions: Cephalexin [Keflex] 500 mg PO Q6HR #40 cap Promethazine Suppository [Phenergan] 25 mg RECTAL TID PRN #15 supp PRN Reason: Nausea Referrals: Rajiv Sexton MD [Primary Care Provider] - 1-2 days
[2022-02-21] MEDS ORDERED: diphenhydrAMINE 50 MG/ML 1 ML VIAL IVP STA (02:05)
[2022-02-21] MEDS ORDERED: PROCHLORPERAZINE INJ 10 MG/2 ML VIAL IVP STA (02:05)
[2022-02-21] MEDS ORDERED: HYDROmorphone 1 MG/ML 1 ML SYRINGE IVP STA (02:05)
[2022-02-21 02:22] VITALS: RESP 16
[2022-02-21 03:02] LABS: Basophils % (A) 0 %; Eosinophils # (A) 0.2 k/uL (0-0.7); Eosinophils % (A) 2 %; HCT 34.6 % (34.0-46.0); Lymphocytes # (A) 3.9 k/uL (1.0-4.8); Lymphocytes % (A) 37 %; MCH 30.4 pg (25.0-35.0); MCV 86.9 fL (80.0-100.0); Mean Platelet Volume 7.2; Monocytes # (A) 0.4 k/uL (0-1.0); Monocytes % (A) 4 %; Neutrophils # (A) 5.7 k/uL (1.3-7.7); Neutrophils % (A) 55 %; Platelet Count 253 k/uL (150-450); RBC 3.99 m/uL (3.80-5.40); RDW 12.9 % (11.5-15.5); WBC 10.4 k/uL (3.8-10.6)
[2022-02-21 03:09] LABS: African American GFR (CKD) >90 (>60 ml/min/1.73 sqM); Anion Gap 15 mmol/L; Blood Urea Nitrogen 17 mg/dL (7-17); Calcium 9.9 mg/dL (8.4-10.2); Carbon Dioxide 20 mmol/L (22-30); Chloride 102 mmol/L (98-107); Glucose 222 mg/dL (74-99); Non-African American GFR(CKD) >90 (>60 ml/min/1.73 sqM); Potassium 3.7 mmol/L (3.5-5.1); Sodium 137 mmol/L (137-145)
[2022-02-21 03:10] LABS: HGB 12.1 gm/dL (11.4-16.0)
[2022-02-21 03:36] VITALS: BP 111/78; PULSE 81; TEMP 97.8
== END 2022-02-21 03:37 | disposition home or self-care (01) ==
LOC: EC 23:04
DX: N20.0 Calculus of kidney (principal); E86.0 Dehydration; N39.0 Urinary tract infection, site not specified; F17.200 Nicotine dependence, unspecified, uncomplicated; K21.9 Gastro-esophageal reflux disease without esophagitis; E11.9 Type 2 diabetes mellitus without complications; E78.5 Hyperlipidemia, unspecified; I10 Essential (primary) hypertension; Z88.8 Allergy status to other drugs, medicaments and biological substances; Z88.5 Allergy status to narcotic agent; Z91.041 Radiographic dye allergy status; Z88.0 Allergy status to penicillin; Z88.2 Allergy status to sulfonamides; Z79.899 Other long term (current) drug therapy; Z91.018 Allergy to other foods; Z79.84 Long term (current) use of oral hypoglycemic drugs
CPT/HCPCS: 99284 ×2; 96375 ×2; 96374; 36415; 80048; 85025; 81001; 81025; 87086; 96365; J1200; J0780; J2765; J0696; J1170

== ENCOUNTER 2022-02-26 19:00 | Emergency (ER) | payer BC, OTHER ==
[2022-02-26 20:05] VITALS: TEMP 98
[2022-02-26 22:29] LABS: Appearance,Urine Cloudy (Clear); Bilirubin,Urine Negative (Negative); Blood,Urine Large (Negative); Color,Urine Light Red; Glucose,Urine (UA) 4+ (Negative); Ketones,Urine 1+ (Negative); Leukocyte Esterase,Urine Small (Negative); Nitrite,Urine Negative (Negative); PH, Urine 5.5 (5.0-8.0); Protein,Urine Trace (Negative); RBC,Urine >182 /hpf (0-5); Squamous Epithelial Cell,Urine 8 /hpf (0-4); Urobilinogen,Urine <2.0 mg/dL (<2.0); WBC,Urine 82 /hpf (0-5)
[2022-02-27] MEDS ORDERED: HYDROmorphone 0.5 MG/0.5 ML SYRINGE IVP STA ×2 (00:49→02:38)
[2022-02-27] MEDS ORDERED: PANTOPRAZOLE 40 MG/10 ML VIAL IVP STA (00:49)
[2022-02-27] MEDS ORDERED: ONDANSETRON 4 MG/2 ML VIAL IVP STA (00:49)
[2022-02-27] MEDS ORDERED: SODIUM CHLORIDE 0.9% 1,000 ML IV STA (00:49)
[2022-02-27 01:36] LABS: Basophils # (A) 0.1 k/uL (0-0.2); Basophils % (A) 1 %; Eosinophils # (A) 0.2 k/uL (0-0.7); Eosinophils % (A) 2 %; HCT 44.8 % (34.0-46.0); HGB 15.6 gm/dL (11.4-16.0); Lymphocytes # (A) 5.5 k/uL (1.0-4.8); Lymphocytes % (A) 39 %; MCH 30.4 pg (25.0-35.0); MCHC 34.8 g/dL (31.0-37.0); MCV 87.4 fL (80.0-100.0); Mean Platelet Volume 7.3; Monocytes # (A) 0.7 k/uL (0-1.0); Monocytes % (A) 5 %; Neutrophils # (A) 7.2 k/uL (1.3-7.7); Neutrophils % (A) 51 %; Platelet Count 363 k/uL (150-450); RBC 5.13 m/uL (3.80-5.40); RDW 13.2 % (11.5-15.5)
[2022-02-27 02:04] LABS: HCG,Qualitative Serum Not Detected
--- NOTE | 2022-02-27 02:04 | ED ---
General Adult HPI - General Chief complaint: Abdominal Pain Stated complaint: kidney stone Time Seen by Provider: 02/27/22 00:33 Source: patient, RN notes reviewed, old records reviewed Mode of arrival: ambulatory Limitations: no limitations - History of Present Illness Initial comments: Patient is a 46-year-old female with past medical history remarkable for chronic kidney pain, right-sided nephrolithiasis presents emergency Department complaining of right ear nephrolithiasis. She's been seen here frequently for the same complaint. He is due for follow-up this week or next week to receive lithotripsy and a kidney stone on the right side. States she is on Percocet, Toradol, Zofran at home. He has been having nausea, vomiting throughout the day and worsening breakthrough pain. Presents for further evaluation of this time. No other symptoms. Complex right flank pain. Denies any fevers, chills, cough. Denies any chest pain or shortness of breath. Denies any dysuria. Denies any vaginal discharge or bleeding. Has no other acute complaints at this time. - Related Data Home Medications Medication Instructions Recorded Confirmed oxyCODONE-APAP 10-325MG [Percocet 1 tab PO QID PRN 08/29/17 01/06/22 10-325 mg] PARoxetine HCL [Paxil] 40 mg PO DAILY 03/12/18 01/06/22 PARoxetine [Paxil] 20 mg PO DAILY 06/04/18 01/06/22 Loratadine 10 mg PO DAILY 04/21/20 01/06/22 Dapagliflozin Propanediol [Farxiga] 10 mg PO DAILY 12/07/21 01/06/22 Dextroamphetamine/Amphetamine 20 mg PO BID 12/07/21 01/06/22 [Dextroamp-Amphetamin 20 mg Tab] Glimepiride [Amaryl] 4 mg PO DAILY 12/07/21 01/06/22 Multivitamins, Thera [Multivitamin 1 tab PO DAILY 12/07/21 01/06/22 (formulary)] SUMAtriptan succinate [Imitrex] 100 mg PO DAILY PRN 12/07/21 01/06/22 Semaglutide [Rybelsus] 14 mg PO DAILY 01/06/22 01/06/22 Previous Rx's Medication Instructions Recorded Ondansetron Odt [Zofran Odt] 4 mg PO Q8H PRN #12 tab 01/06/22 Ondansetron Odt [Zofran Odt] 4 mg PO Q8HR PRN #15 tab 01/12/22 clindamycin HCL [Cleocin] 300 mg PO Q6HR #40 cap 01/21/22 Cephalexin [Keflex] 500 mg PO Q6HR #40 cap 02/21/22 Promethazine Suppository 25 mg RECTAL TID PRN #15 supp 02/21/22 [Phenergan] Cephalexin [Keflex] 500 mg PO Q12HR 5 Days #10 cap 02/27/22 Fluconazole [Diflucan] 150 mg PO ONCE #1 tab 02/27/22 Allergies Allergy/AdvReac Type Severity Reaction Status Date / Time bupropion HCl Allergy Rash/Hives Verified 02/26/22 20:01 [From Wellbutrin] divalproex sodium Allergy Unknown Verified 02/26/22 20:01 [From Depakote] fentanyl Allergy Swelling Verified 02/26/22 20:01 Iodinated Contrast Media Allergy Anaphylaxis Verified 02/26/22 20:01 [Iodinated Contrast Media - IV Dye] orange juice [[place]] Allergy Rash/Hives Verified 02/26/22 20:01 Sulfa (Sulfonamide Allergy Rash/Hives Verified 02/26/22 20:01 Antibiotics) Penicillins AdvReac Rash/Hives/Gi Verified 02/26/22 20:01 Upset Review of Systems ROS Statement: Those systems with pertinent positive or pertinent negative responses have been documented in the HPI. Review of Systems: CONST: Denies fever EYES: Denies blurry vision ENT: Denies nasal congestion C/V: Denies Chest pain RESP: Denies shortness of breath GI: Endorses right flank pain : Denies dysuria SKIN: Denies rash. MSK: Denies joint pain. NEURO: Denies headache ROS Other: All systems not noted in ROS Statement are negative. 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 History of Any Multi-Drug Resistant Organisms: ESBL Date of last positivie culture/infection: 05/14/17 MDRO Source:: ESBL URINE, Past Surgical History: Bladder Surgery, Section, Cholecystectomy, Hysterectomy, Orthopedic Surgery, Tubal Ligation Additional Past Surgical History / Comment(s): R ovarian cystectomy, laparoscopic surgery for L ovary that had attached to the bowel, D&C, numerous lithotripsies, nephroscopies, cystoscopies and stents to ureters-none in place at this time, L robotic pyeloplasty with post op infection around kidney which then required a picc line/later removed (pt states was not MRSA), L rotator cuff repair, L wrist tendon surgery, colonoscopy. Kidney stone removal. Past Anesthesia/Blood Transfusion Reactions: Family History of Problems w/ Anesthesia Additional Past Anesthesia/Blood Transfusion Reaction / Comment(s): dad-hard time waking up due to enzyme problems in liver Past Psychological History: ADD/ADHD, Anxiety, Bipolar, Depression, PTSD Smoking Status: Current every day smoker Past Alcohol Use History: None Reported Past Drug Use History: None Reported - Past Family History Brother(s) Family Medical History: Cancer Additional Family Medical History / Comment(s): testicular Father Family Medical History: Coronary Artery Disease (CAD), CVA/TIA, Diabetes Mellitus, Renal Disease Additional Family Medical History / Comment(s): GLAUCOMA,NEUROPATHY HAD TRIPLE CABG, at 56yrs from renal disease. Mother Family Medical History: Hyperlipidemia Additional Family Medical History / Comment(s): DDD, HAD 3 vessel CABG AGE 54. General Exam - General Exam Comments Initial Comments: General: Appears in mild distress secondary to pain. HEAD: Normal with no signs of head trauma. EYES: EOMI ENT: Hearing grossly intact, normal oropharynx. RESPIRATORY: Clear breath sounds bilaterally. No wheezes, rales, or rhonchi. C/V: Regular rate and rhythm. S1 and S2 auscultated, no edema, peripheral pulses 2+ and intact throughout ABD: Abdomen is soft, nondistended. Right-sided lower back pain. No anterior abdominal pain. No guarding. No rebound tenderness. EXT: Normal range of motion, no obvious deformity SKIN: No rashes or lesions observed on exposed skin. NEURO: Alert and oriented 4. Limitations: no limitations Course Vital Signs 02/26/22 02/27/22 02/27/22 20:01 01:36 03:10 Temperature 98 F Pulse Rate 105 H 86 Respiratory 16 18 Rate Blood Pressure 112/73 133/83 107/69 O2 Sat by Pulse 98 99 Oximetry Medical Decision Making - Medical Decision Making Based on the patient's presentation and physical exam, I am concerned for acute on chronic pain, nausea, vomiting secondary to her known right-sided kidney stone requires lithotripsy. She is requesting analgesia, IV fluids. Believe this is reasonable. We will obtain basic laboratory studies. She was in agreement this plan. Patient's laboratory studies are remarkable for a mild leukocytosis of 14 which is improved from the other day. Patient is not . Urine does show RBCs as well as WBCs. It is a contaminated catch. I did offer the patient antibiotics which she accepted. She is feeling improved. Tolerating oral intake. Is supposed to follow up outpatient with a urologist for lithotripsy and has the follow up information.. She would like to go home. I believe this is reasonable. Recommended follow up as soon as possible. Pain is under control. Nausea is controlled. I will provide the patient with a prescription for Keflex. I instructed the patient to follow up with their PCP in the next 1-3 days. I explained that the patient should return to the emergency department if they experience any worsening symptoms. Strict return precautions were discussed with the patient. The patient expressed understanding of these instructions. I answered all questions that the patient had. The patient was discharged home in good conditio n with their prescriptions and follow up information. - Lab Data Result diagrams: 02/27/22 01:16 02/27/22 01:16 Lab Results 02/26/22 02/27/22 02/27/22 Range/Units 21:54 01:16 01:16 WBC 14.0 H (3.8-10.6) k/uL RBC 5.13 (3.80-5.40) m/uL Hgb 15.6 (11.4-16.0) gm/dL Hct 44.8 (34.0-46.0) % MCV 87.4 (80.0-100.0) fL MCH 30.4 (25.0-35.0) pg MCHC 34.8 (31.0-37.0) g/dL RDW 13.2 (11.5-15.5) % Plt Count 363 (150-450) k/uL MPV 7.3 Neutrophils % 51 % Lymphocytes % 39 % Monocytes % 5 % Eosinophils % 2 % Basophils % 1 % Neutrophils # 7.2 (1.3-7.7) k/uL Lymphocytes # 5.5 H (1.0-4.8) k/uL Monocytes # 0.7 (0-1.0) k/uL Eosinophils # 0.2 (0-0.7) k/uL Basophils # 0.1 (0-0.2) k/uL Sodium 135 L (137-145) mmol/L Potassium 3.8 (3.5-5.1) mmol/L Chloride 102 (98-107) mmol/L Carbon Dioxide 17 L (22-30) mmol/L Anion Gap 16 mmol/L BUN 13 (7-17) mg/dL Creatinine 0.64 (0.52-1.04) mg/dL Est GFR (CKD-EPI)AfAm >90 (>60 ml/min/1.73 sqM) Est GFR (CKD-EPI)NonAf >90 (>60 ml/min/1.73 sqM) Glucose 127 H (74-99) mg/dL Calcium 9.9 (8.4-10.2) mg/dL Total Bilirubin 0.9 (0.2-1.3) mg/dL AST 36 (14-36) U/L ALT 43 H (4-34) U/L Alkaline Phosphatase 97 (38-126) U/L Total Protein 7.7 (6.3-8.2) g/dL Albumin 4.7 (3.5-5.0) g/dL Amylase 58 (30-110) U/L Lipase 144 (23-300) U/L HCG, Qual Not Detected Urine Color Light Red Urine Appearance Cloudy H (Clear) Urine pH 5.5 (5.0-8.0) Ur Specific [place] 1.020 (1.001-1.035) Urine Protein Trace H (Negative) Urine Glucose (UA) 4+ H (Negative) Urine Ketones 1+ H (Negative) Urine Blood Large H (Negative) Urine Nitrite Negative (Negative) Urine Bilirubin Negative (Negative) Urine Urobilinogen <2.0 (<2.0) mg/dL Ur Leukocyte Esterase Small H (Negative) Urine RBC >182 H (0-5) /hpf Urine WBC 82 H (0-5) /hpf Ur Squamous Epith Cells 8 H (0-4) /hpf Disposition Clinical Impression: Nephrolithiasis, Chronic pain, Nausea, UTI (urinary tract infection) Disposition: HOME SELF-CARE Condition: Good Prescriptions: Fluconazole [Diflucan] 150 mg PO ONCE #1 tab Cephalexin [Keflex] 500 mg PO Q12HR 5 Days #10 cap Is patient prescribed a controlled substance at d/c from ED?: No Referrals: Rajiv Sexton MD [Primary Care Provider] - 1-2 days Time of Disposition: 02:35
[2022-02-27 02:05] LABS: ALT 43 U/L (4-34); AST 36 U/L (14-36); African American GFR (CKD) >90 (>60 ml/min/1.73 sqM); Albumin 4.7 g/dL (3.5-5.0); Alkaline Phosphatase 97 U/L (38-126); Amylase 58 U/L (30-110); Anion Gap 16 mmol/L; Blood Urea Nitrogen 13 mg/dL (7-17); Calcium 9.9 mg/dL (8.4-10.2); Carbon Dioxide 17 mmol/L (22-30); Chloride 102 mmol/L (98-107); Glucose 127 mg/dL (74-99); Lipase 144 U/L (23-300); Non-African American GFR(CKD) >90 (>60 ml/min/1.73 sqM); Potassium 3.8 mmol/L (3.5-5.1); Sodium 135 mmol/L (137-145); Total Bilirubin 0.9 mg/dL (0.2-1.3); Total Protein 7.7 g/dL (6.3-8.2)
[2022-02-27] MEDS ORDERED: CEPHALEXIN 500 MG CAP PO STA (02:38)
[2022-02-27 03:14] VITALS: BP 107/69; PULSE 86; RESP 18
== END 2022-02-27 03:19 | disposition home or self-care (01) ==
LOC: EC 19:00
DX: N20.0 Calculus of kidney (principal); N39.0 Urinary tract infection, site not specified; R11.0 Nausea; G89.4 Chronic pain syndrome; E11.9 Type 2 diabetes mellitus without complications; K21.9 Gastro-esophageal reflux disease without esophagitis; E78.5 Hyperlipidemia, unspecified; I12.9 Hypertensive chronic kidney disease with stage 1 through stage 4 chronic kidney disease, or unspecified chronic kidney disease; N18.9 Chronic kidney disease, unspecified; F31.9 Bipolar disorder, unspecified; F41.9 Anxiety disorder, unspecified; F17.200 Nicotine dependence, unspecified, uncomplicated; Z88.0 Allergy status to penicillin; Z88.2 Allergy status to sulfonamides; Z88.8 Allergy status to other drugs, medicaments and biological substances; Z88.1 Allergy status to other antibiotic agents; Z91.041 Radiographic dye allergy status; Z79.899 Other long term (current) drug therapy
CPT/HCPCS: 36415; 80053; 82150; 83690; 85025; 81001; 84703; 87086; 99284; 96374; 96375 ×2; 96376; 96361; J2405; C9113; J1170

== ENCOUNTER 2022-03-04 22:06 | Emergency (ER) | payer BC, OTHER ==
[2022-03-04 22:11] VITALS: TEMP 97.7
[2022-03-04 22:59] LABS: Appearance,Urine Turbid (Clear); Bilirubin,Urine Negative (Negative); Blood,Urine Large (Negative); Calcium Oxalate Crystals,Urine Occasional /hpf; Color,Urine Red; Glucose,Urine (UA) 4+ (Negative); Ketones,Urine Trace (Negative); Leukocyte Esterase,Urine Small (Negative); Mucus,Urine Occasional /hpf; Nitrite,Urine Negative (Negative); PH, Urine 5.5 (5.0-8.0); Protein,Urine 1+ (Negative); RBC,Urine >182 /hpf (0-5); Specific Gravity,Urine 1.034 (1.001-1.035); Squamous Epithelial Cell,Urine 38 /hpf (0-4); WBC,Urine 3 /hpf (0-5)
[2022-03-04] MEDS ORDERED: SODIUM CHLORIDE 0.9% 1,000 ML IV STA (23:23)
[2022-03-04] MEDS ORDERED: diphenhydrAMINE 50 MG/ML 1 ML VIAL IVP STA (23:23)
[2022-03-04] MEDS ORDERED: KETOROLAC 15 MG/ML 1 ML VIAL IVP STA (23:23)
[2022-03-04] MEDS ORDERED: HYDROmorphone 1 MG/ML 1 ML SYRINGE IVP STA (23:23)
[2022-03-04] MEDS ORDERED: SODIUM CHLORIDE 0.9% 500 ML 500 ML IV STA (23:23)
[2022-03-04] MEDS ORDERED: PROCHLORPERAZINE INJ 10 MG/2 ML VIAL IVP STA (23:23)
--- NOTE | 2022-03-04 23:24 | ED ---
Recheck HPI - General Chief Complaint: Abdominal Pain Stated Complaint: kidney stone Time Seen by Provider: 03/04/22 23:21 Source: patient, RN notes reviewed, old records reviewed Mode of arrival: ambulatory Limitations: no limitations - History of Present Illness Initial Comments: This is a 46-year-old female to the ER for evaluation. Patient presents today for evaluation of recurrent abdominal pain, flank pain nausea vomiting. Can keep anything down. No fevers. No other complaints. Patient has no new recurrent symptoms. Multiple recent hospital visit, patient's main issue is a nausea vomiting no longer taking all medications MD Complaint: medication refill request -: days(s) Returns Today for: persistent/worsening pain related to initial visit Symptoms Since Prior Visit: worsening pain Context: ran out of medication Associated Symptoms: nausea Treatments Prior to Arrival: Given Pain Meds on - Related Data Home Medications Medication Instructions Recorded Confirmed oxyCODONE-APAP 10-325MG [Percocet 1 tab PO QID PRN 08/29/17 01/06/22 10-325 mg] PARoxetine HCL [Paxil] 40 mg PO DAILY 03/12/18 01/06/22 PARoxetine [Paxil] 20 mg PO DAILY 06/04/18 01/06/22 Loratadine 10 mg PO DAILY 04/21/20 01/06/22 Dapagliflozin Propanediol [Farxiga] 10 mg PO DAILY 12/07/21 01/06/22 Dextroamphetamine/Amphetamine 20 mg PO BID 12/07/21 01/06/22 [Dextroamp-Amphetamin 20 mg Tab] Glimepiride [Amaryl] 4 mg PO DAILY 12/07/21 01/06/22 Multivitamins, Thera [Multivitamin 1 tab PO DAILY 12/07/21 01/06/22 (formulary)] SUMAtriptan succinate [Imitrex] 100 mg PO DAILY PRN 12/07/21 01/06/22 Semaglutide [Rybelsus] 14 mg PO DAILY 01/06/22 01/06/22 Previous Rx's Medication Instructions Recorded Ondansetron Odt [Zofran Odt] 4 mg PO Q8H PRN #12 tab 01/06/22 Ondansetron Odt [Zofran Odt] 4 mg PO Q8HR PRN #15 tab 01/12/22 clindamycin HCL [Cleocin] 300 mg PO Q6HR #40 cap 01/21/22 Cephalexin [Keflex] 500 mg PO Q6HR #40 cap 02/21/22 Promethazine Suppository 25 mg RECTAL TID PRN #15 supp 02/21/22 [Phenergan] Cephalexin [Keflex] 500 mg PO Q12HR 5 Days #10 cap 02/27/22 Fluconazole [Diflucan] 150 mg PO ONCE #1 tab 02/27/22 Allergies Allergy/AdvReac Type Severity Reaction Status Date / Time bupropion HCl Allergy Rash/Hives Verified 03/04/22 22:11 [From Wellbutrin] divalproex sodium Allergy Unknown Verified 03/04/22 22:11 [From Depakote] fentanyl Allergy Swelling Verified 03/04/22 22:11 Iodinated Contrast Media Allergy Anaphylaxis Verified 03/04/22 22:11 [Iodinated Contrast Media - IV Dye] orange juice [[place]] Allergy Rash/Hives Verified 03/04/22 22:11 Sulfa (Sulfonamide Allergy Rash/Hives Verified 03/04/22 22:11 Antibiotics) Penicillins AdvReac Rash/Hives/Gi Verified 03/04/22 22:11 Upset Review of Systems ROS Statement: Those systems with pertinent positive or pertinent negative responses have been documented in the HPI. ROS Other: All systems not noted in ROS Statement are negative. 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 History of Any Multi-Drug Resistant Organisms: ESBL Date of last positivie culture/infection: 05/14/17 MDRO Source:: ESBL URINE, Past Surgical History: Bladder Surgery, Section, Cholecystectomy, Hysterectomy, Orthopedic Surgery, Tubal Ligation Additional Past Surgical History / Comment(s): R ovarian cystectomy, laparoscopic surgery for L ovary that had attached to the bowel, D&C, numerous lithotripsies, nephroscopies, cystoscopies and stents to ureters-none in place at this time, L robotic pyeloplasty with post op infection around kidney which t hen required a picc line/later removed (pt states was not MRSA), L rotator cuff repair, L wrist tendon surgery, colonoscopy. Kidney stone removal. Past Anesthesia/Blood Transfusion Reactions: Family History of Problems w/ Anesthesia Additional Past Anesthesia/Blood Transfusion Reaction / Comment(s): dad-hard time waking up due to enzyme problems in liver Past Psychological History: ADD/ADHD, Anxiety, Bipolar, Depression, PTSD Smoking Status: Current every day smoker Past Alcohol Use History: None Reported Past Drug Use History: None Reported - Past Family History Brother(s) Family Medical History: Cancer Additional Family Medical History / Comment(s): testicular Father Family Medical History: Coronary Artery Disease (CAD), CVA/TIA, Diabetes Mellitus, Renal Disease Additional Family Medical History / Comment(s): GLAUCOMA,NEUROPATHY HAD TRIPLE CABG, at 56yrs from renal disease. Mother Family Medical History: Hyperlipidemia Additional Family Medical History / Comment(s): DDD, HAD 3 vessel CABG AGE 54. General Exam Limitations: no limitations General appearance: alert, in no apparent distress Head exam: Present: atraumatic, normocephalic, normal inspection Eye exam: Present: normal appearance, PERRL, EOMI. Absent: scleral icterus, conjunctival injection, periorbital swelling ENT exam: Present: normal exam, mucous membranes moist Neck exam: Present: normal inspection. Absent: tenderness, meningismus, lymphadenopathy Respiratory exam: Present: normal lung sounds bilaterally. Absent: respiratory distress, wheezes, rales, rhonchi, stridor Cardiovascular Exam: Present: regular rate, normal rhythm, normal heart sounds. Absent: systolic murmur, diastolic murmur, rubs, gallop, clicks GI/Abdominal exam: Present: soft, normal bowel sounds. Absent: distended, tenderness, guarding, rebound, rigid Extremities exam: Present: normal inspection, full ROM, normal capillary refill. Absent: tenderness, pedal edema, joint swelling, calf tenderness Back exam: Present: normal inspection Neurological exam: Present: alert, oriented X3, CN II-XII intact Psychiatric exam: Present: normal affect, normal mood Skin exam: Present: warm, dry, intact, normal color. Absent: rash Course Vital Signs 03/04/22 03/05/22 22:08 00:30 Temperature 97.7 F Pulse Rate 119 H 78 Respiratory 22 15 Rate Blood Pressure 135/87 123/83 O2 Sat by Pulse 95 98 Oximetry - Reevaluation(s) Reevaluation #1: 03/05/22 00:50 Medical records reviewed Reevaluation #2: 03/05/22 00:50 pain is well-controlled Reevaluation #3: 03/05/22 00:50 Patient informed results and questions answered Medical Decision Making - Medical Decision Making 46 female to the emergency department with acute on chronic flank pain. Patient's pain is well-controlled currently she can be discharged home - Lab Data Result diagrams: 03/04/22 23:58 03/04/22 23:58 Lab Results 03/04/22 03/04/22 03/04/22 Range/Units 22:21 23:58 23:58 WBC 15.1 H (3.8-10.6) k/uL RBC 5.29 (3.80-5.40) m/uL Hgb 15.2 (11.4-16.0) gm/dL Hct 45.4 (34.0-46.0) % MCV 85.8 (80.0-100.0) fL MCH 28.7 (25.0-35.0) pg MCHC 33.4 (31.0-37.0) g/dL RDW 12.4 (11.5-15.5) % Plt Count 298 (150-450) k/uL MPV 7.4 Neutrophils % 55 % Lymphocytes % 32 % Monocytes % 7 % Eosinophils % 3 % Basophils % 2 % Neutrophils # 8.2 H (1.3-7.7) k/uL Lymphocytes # 4.9 H (1.0-4.8) k/uL Monocytes # 1.1 H (0-1.0) k/uL Eosinophils # 0.4 (0-0.7) k/uL Basophils # 0.3 H (0-0.2) k/uL Sodium 136 L (137-145) mmol/L Potassium 3.2 L (3.5-5.1) mmol/L Chloride 100 (98-107) mmol/L Carbon Dioxide 20 L (22-30) mmol/L Anion Gap 16 mmol/L BUN 11 (7-17) mg/dL Creatinine 0.66 (0.52-1.04) mg/dL Est GFR (CKD-EPI)AfAm >90 (>60 ml/min/1.73 sqM) Est GFR (CKD-EPI)NonAf >90 (>60 ml/min/1.73 sqM) Glucose 207 H (74-99) mg/dL Calcium 9.1 (8.4-10.2) mg/dL Total Bilirubin 0.8 (0.2-1.3) mg/dL AST 20 (14-36) U/L ALT 23 (4-34) U/L Alkaline Phosphatase 110 (38-126) U/L Total Protein 6.5 (6.3-8.2) g/dL Albumin 4.1 (3.5-5.0) g/dL Amylase 37 (30-110) U/L Lipase 71 (23-300) U/L Urine Color Red Urine Appearance Turbid H (Clear) Urine pH 5.5 (5.0-8.0) Ur Specific [place] 1.034 (1.001-1.035) Urine Protein 1+ H (Negative) Urine Glucose (UA) 4+ H (Negative) Urine Ketones Trace H (Negative) Urine Blood Large H (Negative) Urine Nitrite Negative (Negative) Urine Bilirubin Negative (Negative) Urine Urobilinogen 2.0 (<2.0) mg/dL Ur Leukocyte Esterase Small H (Negative) Urine RBC >182 H (0-5) /hpf Urine WBC 3 (0-5) /hpf Ur Squamous Epith Cells 38 H (0-4) /hpf Calcium Oxalate Crystal Occasional H (None) /hpf Urine Mucus Occasional H (None) /hpf Disposition Clinical Impression: Nausea and vomiting, Renal colic, Abdominal pain, Flank pain Disposition: HOME SELF-CARE Condition: Good Instructions (If sedation given, give patient instructions): Abdominal Pain (ED) Is patient prescribed a controlled substance at d/c from ED?: No Referrals: Rajiv Sexton MD [Primary Care Provider] - 1-2 days Time of Disposition: 00:50
[2022-03-05 00:07] LABS: Basophils # (A) 0.3 k/uL (0-0.2); Basophils % (A) 2 %; Eosinophils # (A) 0.4 k/uL (0-0.7); Eosinophils % (A) 3 %; HCT 45.4 % (34.0-46.0); HGB 15.2 gm/dL (11.4-16.0); Lymphocytes # (A) 4.9 k/uL (1.0-4.8); Lymphocytes % (A) 32 %; MCH 28.7 pg (25.0-35.0); MCHC 33.4 g/dL (31.0-37.0); MCV 85.8 fL (80.0-100.0); Mean Platelet Volume 7.4; Monocytes # (A) 1.1 k/uL (0-1.0); Monocytes % (A) 7 %; Neutrophils # (A) 8.2 k/uL (1.3-7.7); Neutrophils % (A) 55 %; Platelet Count 298 k/uL (150-450); RBC 5.29 m/uL (3.80-5.40); RDW 12.4 % (11.5-15.5); WBC 15.1 k/uL (3.8-10.6)
[2022-03-05 00:19] LABS: ALT 23 U/L (4-34); AST 20 U/L (14-36); African American GFR (CKD) >90 (>60 ml/min/1.73 sqM); Albumin 4.1 g/dL (3.5-5.0); Alkaline Phosphatase 110 U/L (38-126); Amylase 37 U/L (30-110); Anion Gap 16 mmol/L; Blood Urea Nitrogen 11 mg/dL (7-17); Calcium 9.1 mg/dL (8.4-10.2); Carbon Dioxide 20 mmol/L (22-30); Chloride 100 mmol/L (98-107); Glucose 207 mg/dL (74-99); Lipase 71 U/L (23-300); Non-African American GFR(CKD) >90 (>60 ml/min/1.73 sqM); Potassium 3.2 mmol/L (3.5-5.1); Sodium 136 mmol/L (137-145); Total Bilirubin 0.8 mg/dL (0.2-1.3); Total Protein 6.5 g/dL (6.3-8.2)
[2022-03-05 00:31] VITALS: BP 123/83; PULSE 78; RESP 15
[2022-03-05] MEDS ORDERED: POTASSIUM CHLORIDE ER 20 MEQ TAB.ER PO STA ×2 (00:47)
== END 2022-03-05 03:36 | disposition home or self-care (01) ==
LOC: EC 22:06
DX: N23 Unspecified renal colic (principal); F17.200 Nicotine dependence, unspecified, uncomplicated; E11.9 Type 2 diabetes mellitus without complications; I10 Essential (primary) hypertension; Z88.8 Allergy status to other drugs, medicaments and biological substances; Z88.0 Allergy status to penicillin; Z88.2 Allergy status to sulfonamides; Z91.018 Allergy to other foods; Z91.041 Radiographic dye allergy status; Z79.899 Other long term (current) drug therapy; Z79.84 Long term (current) use of oral hypoglycemic drugs
CPT/HCPCS: 36415; 80053; 82150; 83690; 85025; 81001; 99284; 96374; 96375; 96361; J1200; J0780; J1170; J1885

== ENCOUNTER 2022-03-17 23:16 | Emergency (ER) | payer BC, OTHER ==
[2022-03-17 23:31] VITALS: RESP 18; TEMP 98
[2022-03-18] MEDS ORDERED: KETOROLAC 15 MG/ML 1 ML VIAL IVP STA (02:41)
[2022-03-18] MEDS ORDERED: METOCLOPRAMIDE 5 MG/ML 2 ML VIAL IVP STA (02:42)
[2022-03-18 03:20] LABS: Basophils # (A) 0.1 k/uL (0-0.2); Basophils % (A) 1 %; Eosinophils # (A) 3.5 k/uL (0-0.7); Eosinophils % (A) 21 %; HCT 42.7 % (34.0-46.0); HGB 14.8 gm/dL (11.4-16.0); Lymphocytes # (A) 5.4 k/uL (1.0-4.8); Lymphocytes % (A) 32 %; MCH 29.3 pg (25.0-35.0); MCHC 34.5 g/dL (31.0-37.0); MCV 84.7 fL (80.0-100.0); Mean Platelet Volume 7.9; Monocytes # (A) 0.6 k/uL (0-1.0); Monocytes % (A) 3 %; Neutrophils # (A) 6.9 k/uL (1.3-7.7); Neutrophils % (A) 41 %; Platelet Count 244 k/uL (150-450); RBC 5.04 m/uL (3.80-5.40); RDW 13.6 % (11.5-15.5); WBC 16.7 k/uL (3.8-10.6)
[2022-03-18 03:31] LABS: Appearance,Urine Cloudy (Clear); Bilirubin,Urine Negative (Negative); Blood,Urine Large (Negative); Calcium Oxalate Crystals,Urine Many /hpf; Color,Urine Light Red; Glucose,Urine (UA) 4+ (Negative); Ketones,Urine Negative (Negative); Leukocyte Esterase,Urine Negative (Negative); Mucus,Urine Rare /hpf; Nitrite,Urine Negative (Negative); Protein,Urine Trace (Negative); RBC,Urine >182 /hpf (0-5); Specific Gravity,Urine 1.032 (1.001-1.035); Squamous Epithelial Cell,Urine 7 /hpf (0-4); WBC,Urine 40 /hpf (0-5)
[2022-03-18 03:32] LABS: ALT 17 U/L (4-34); AST 22 U/L (14-36); African American GFR (CKD) >90 (>60 ml/min/1.73 sqM); Albumin 4.1 g/dL (3.5-5.0); Alkaline Phosphatase 97 U/L (38-126); Anion Gap 15 mmol/L; Blood Urea Nitrogen 12 mg/dL (7-17); Calcium 9.2 mg/dL (8.4-10.2); Carbon Dioxide 22 mmol/L (22-30); Chloride 102 mmol/L (98-107); Glucose 113 mg/dL (74-99); Non-African American GFR(CKD) >90 (>60 ml/min/1.73 sqM); Potassium 3.3 mmol/L (3.5-5.1); Sodium 139 mmol/L (137-145); Total Bilirubin 0.7 mg/dL (0.2-1.3); Total Protein 6.6 g/dL (6.3-8.2)
[2022-03-18] MEDS ORDERED: POTASSIUM CHLORIDE ER 20 MEQ TAB.ER PO STA (04:13)
--- NOTE | 2022-03-18 04:18 | ED ---
General Adult HPI - General Chief complaint: Back Pain/Injury Stated complaint: Kidney Stone Time Seen by Provider: 03/18/22 02:32 Source: patient Mode of arrival: ambulatory Limitations: no limitations - History of Present Illness Initial comments: Patient is a 46-year-old female presenting with chief complaint of right-sided flank pain. Patient has been here on multiple occasions for similar complaints. Patient has history of kidney stones, reports that she follows with urology, states that she was recently scheduled for lithotripsy but they were unable to do so due to obscured a few on ultrasound. States her pain medication at home has not been adequate in controlling her symptoms. She admits to nausea and vomiting. No abdominal pain, dysuria, urgency, frequency, chest pain, shortness of breath, fever, chills, weakness, palpitations, numbness, tingling. - Related Data Home Medications Medication Instructions Recorded Confirmed oxyCODONE-APAP 10-325MG [Percocet 1 tab PO QID PRN 08/29/17 01/06/22 10-325 mg] PARoxetine HCL [Paxil] 40 mg PO DAILY 03/12/18 01/06/22 PARoxetine [Paxil] 20 mg PO DAILY 06/04/18 01/06/22 Loratadine 10 mg PO DAILY 04/21/20 01/06/22 Dapagliflozin Propanediol [Farxiga] 10 mg PO DAILY 12/07/21 01/06/22 Dextroamphetamine/Amphetamine 20 mg PO BID 12/07/21 01/06/22 [Dextroamp-Amphetamin 20 mg Tab] Glimepiride [Amaryl] 4 mg PO DAILY 12/07/21 01/06/22 Multivitamins, Thera [Multivitamin 1 tab PO DAILY 12/07/21 01/06/22 (formulary)] SUMAtriptan succinate [Imitrex] 100 mg PO DAILY PRN 12/07/21 01/06/22 Semaglutide [Rybelsus] 14 mg PO DAILY 01/06/22 01/06/22 Previous Rx's Medication Instructions Recorded Ondansetron Odt [Zofran Odt] 4 mg PO Q8H PRN #12 tab 01/06/22 Ondansetron Odt [Zofran Odt] 4 mg PO Q8HR PRN #15 tab 01/12/22 clindamycin HCL [Cleocin] 300 mg PO Q6HR #40 cap 01/21/22 Cephalexin [Keflex] 500 mg PO Q6HR #40 cap 02/21/22 Promethazine Suppository 25 mg RECTAL TID PRN #15 supp 02/21/22 [Phenergan] Cephalexin [Keflex] 500 mg PO Q12HR 5 Days #10 cap 02/27/22 Fluconazole [Diflucan] 150 mg PO ONCE #1 tab 02/27/22 Allergies Allergy/AdvReac Type Severity Reaction Status Date / Time bupropion HCl Allergy Rash/Hives Verified 03/17/22 23:31 [From Wellbutrin] divalproex sodium Allergy Unknown Verified 03/17/22 23:31 [From Depakote] fentanyl Allergy Swelling Verified 03/17/22 23:31 Iodinated Contrast Media Allergy Anaphylaxis Verified 03/17/22 23:31 [Iodinated Contrast Media - IV Dye] orange juice [[place]] Allergy Rash/Hives Verified 03/17/22 23:31 Sulfa (Sulfonamide Allergy Rash/Hives Verified 03/17/22 23:31 Antibiotics) Penicillins AdvReac Rash/Hives/Gi Verified 03/17/22 23:31 Upset Review of Systems ROS Statement: Those systems with pertinent positive or pertinent negative responses have been documented in the HPI. ROS Other: All systems not noted in ROS Statement are negative. 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 History of Any Multi-Drug Resistant Organisms: ESBL Date of last positivie culture/infection: 05/14/17 MDRO Source:: ESBL URINE, Past Surgical History: Bladder Surgery, Section, Cholecystectomy, Hysterectomy, Orthopedic Surgery, Tubal Ligation Additional Past Surgical History / Comment(s): R ovarian cystectomy, laparoscopic surgery for L ovary that had attached to the bowel, D&C, numerous lithotripsies, nephroscopies, cystoscopies and stents to ureters-none in place at this time, L robotic pyeloplasty with post op infection around kidney which then required a picc line/later removed (pt states was not MRSA), L rotator cuff repair, L wrist tendon surgery, colonoscopy. Kidney stone removal. Past Anesthesia/Blood Transfusion Reactions: Family History of Problems w/ Anesthesia Additional Past Anesthesia/Blood Transfusion Reaction / Comment(s): dad-hard time waking up due to enzyme problems in liver Past Psychological History: ADD/ADHD, Anxiety, Bipolar, Depression, PTSD Smoking Status: Current every day smoker Past Alcohol Use History: None Reported Past Drug Use History: None Reported - Past Family History Brother(s) Family Medical History: Cancer Additional Family Medical History / Comment(s): testicular Father Family Medical History: Coronary Artery Disease (CAD), CVA/TIA, Diabetes Mellitus, Renal Disease Additional Family Medical History / Comment(s): GLAUCOMA,NEUROPATHY HAD TRIPLE CABG, at 56yrs from renal disease. Mother Family Medical History: Hyperlipidemia Additional Family Medical History / Comment(s): DDD, HAD 3 vessel CABG AGE 54. General Exam Limitations: no limitations General appearance: alert, in no apparent distress Head exam: Present: atraumatic, normocephalic, normal inspection Eye exam: Present: normal appearance, PERRL, EOMI. Absent: scleral icterus, conjunctival injection, periorbital swelling Neck exam: Present: normal inspection Respiratory exam: Present: normal lung sounds bilaterally. Absent: respiratory distress, wheezes, rales, rhonchi, stridor Cardiovascular Exam: Present: regular rate, normal rhythm, normal heart sounds. Absent: systolic murmur, diastolic murmur, rubs, gallop, clicks GI/Abdominal exam: Present: soft. Absent: distended, tenderness, guarding, rebound, rigid Back exam: Present: CVA tenderness (R). Absent: CVA tenderness (L) Neurological exam: Present: alert, oriented X3, CN II-XII intact Psychiatric exam: Present: normal affect, normal mood Skin exam: Present: warm, dry, intact, normal color. Absent: rash Course Vital Signs 03/17/22 03/18/22 23:30 05:26 Temperature 98 F Pulse Rate 88 89 Respiratory 18 18 Rate Blood Pressure 131/88 135/87 O2 Sat by Pulse 98 98 Oximetry Medical Decision Making - Medical Decision Making Patient is a 46-year-old female presenting with chief complaint of right-sided flank pain. Patient has history of kidney stones and follows with urology. On examination there is right-sided CVA tenderness, no abdominal tenderness or urinary symptoms. CBC shows WBC 16.7, likely reactive due to vomiting. Potassium is 3 , she is given oral replacement. Urine shows large blood with greater than 182 RBCs, appears contaminated, will be sent for culture. Patient is given pain and nausea medication as well as fluids. Instructed to follow-up with her urologist. Follow-up with PCP. Report back to ER with any new or worsening symptoms. Discussed return parameters and answered all questions. Patient conveyed verbal understanding and agreed to the plan. I discussed this case in detail with my attending Dr. Churchill - Lab Data Result diagrams: 03/18/22 02:55 03/18/22 02:55 Lab Results 03/18/22 03/18/22 03/18/22 Range/Units 02:55 02:55 02:55 WBC 16.7 H (3.8-10.6) k/uL RBC 5.04 (3.80-5.40) m/uL Hgb 14.8 (11.4-16.0) gm/dL Hct 42.7 (34.0-46.0) % MCV 84.7 (80.0-100.0) fL MCH 29.3 (25.0-35.0) pg MCHC 34.5 (31.0-37.0) g/dL RDW 13.6 (11.5-15.5) % Plt Count 244 (150-450) k/uL MPV 7.9 Neutrophils % 41 % Lymphocytes % 32 % Monocytes % 3 % Eosinophils % 21 % Basophils % 1 % Neutrophils # 6.9 (1.3-7.7) k/uL Lymphocytes # 5.4 H (1.0-4.8) k/uL Monocytes # 0.6 (0-1.0) k/uL Eosinophils # 3.5 H (0-0.7) k/uL Basophils # 0.1 (0-0.2) k/uL Manual Slide Review Performed Sodium (137-145) mmol/L Potassium (3.5-5.1) mmol/L Chloride (98-107) mmol/L Carbon Dioxide (22-30) mmol/L Anion Gap mmol/L BUN (7-17) mg/dL Creatinine (0.52-1.04) mg/dL Est GFR (CKD-EPI)AfAm (>60 ml/min/1.73 sqM) Est GFR (CKD-EPI)NonAf (>60 ml/min/1.73 sqM) Glucose (74-99) mg/dL Calcium (8.4-10.2) mg/dL Total Bilirubin (0.2-1.3) mg/dL AST (14-36) U/L ALT (4-34) U/L Alkaline Phosphatase (38-126) U/L Total Protein (6.3-8.2) g/dL Albumin (3.5-5.0) g/dL Urine Color Light Red Urine Appearance Cloudy H (Clear) Urine pH 6.0 (5.0-8.0) Ur Specific [place] 1.032 (1.001-1.035) Urine Protein Trace H (Negative) Urine Glucose (UA) 4+ H (Negative) Urine Ketones Negative (Negative) Urine Blood Large H (Negative) Urine Nitrite Negative (Negative) Urine Bilirubin Negative (Negative) Urine Urobilinogen 2.0 (<2.0) mg/dL Ur Leukocyte Esterase Negative (Negative) Urine RBC >182 H (0-5) /hpf Urine WBC 40 H (0-5) /hpf Ur Squamous Epith Cells 7 H (0-4) /hpf Calcium Oxalate Crystal Many H (None) /hpf Urine Mucus Rare H (None) /hpf Urine HCG, Qual Not Detected (Not Detectd) 03/18/22 Range/Units 02:55 WBC (3.8-10.6) k/uL RBC (3.80-5.40) m/uL Hgb (11.4-16.0) gm/dL Hct (34.0-46.0) % MCV (80.0-100.0) fL MCH (25.0-35.0) pg MCHC (31.0-37.0) g/dL RDW (11.5-15.5) % Plt Count (150-450) k/uL MPV Neutrophils % % Lymphocytes % % Monocytes % % Eosinophils % % Basophils % % Neutrophils # (1.3-7.7) k/uL Lymphocytes # (1.0-4.8) k/uL Monocytes # (0-1.0) k/uL Eosinophils # (0-0.7) k/uL Basophils # (0-0.2) k/uL Manual Slide Review Sodium 139 (137-145) mmol/L Potassium 3.3 L (3.5-5.1) mmol/L Chloride 102 (98-107) mmol/L Carbon Dioxide 22 (22-30) mmol/L Anion Gap 15 mmol/L BUN 12 (7-17) mg/dL Creatinine 0.62 (0.52-1.04) mg/dL Est GFR (CKD-EPI)AfAm >90 (>60 ml/min/1.73 sqM) Est GFR (CKD-EPI)NonAf >90 (>60 ml/min/1.73 sqM) Glucose 113 H (74-99) mg/dL Calcium 9.2 (8.4-10.2) mg/dL Total Bilirubin 0.7 (0.2-1.3) mg/dL AST 22 (14-36) U/L ALT 17 (4-34) U/L Alkaline Phosphatase 97 (38-126) U/L Total Protein 6.6 (6.3-8.2) g/dL Albumin 4.1 (3.5-5.0) g/dL Urine Color Urine Appearance (Clear) Urine pH (5.0-8.0) Ur Specific [place] (1.001-1.035) Urine Protein (Negative) Urine Glucose (UA) (Negative) Urine Ketones (Negative) Urine Blood (Negative) Urine Nitrite (Negative) Urine Bilirubin (Negative) Urine Urobilinogen (<2.0) mg/dL Ur Leukocyte Esterase (Negative) Urine RBC (0-5) /hpf Urine WBC (0-5) /hpf Ur Squamous Epith Cells (0-4) /hpf Calcium Oxalate Crystal (None) /hpf Urine Mucus (None) /hpf Urine HCG, Qual (Not Detectd) Disposition Clinical Impression: Nephrolithiasis, Flank pain Disposition: HOME SELF-CARE Condition: Good Instructions (If sedation given, give patient instructions): Kidney Stones (ED) Additional Instructions: Follow-up with PCP and urologist. Report back to ER with any new or worsening symptoms. Is patient prescribed a controlled substance at d/c from ED?: No Referrals: Rajiv Sexton MD [Primary Care Provider] - 1-2 days Time of Disposition: 04:18
[2022-03-18 05:27] VITALS: BP 135/87; PULSE 89
== END 2022-03-18 05:30 | disposition home or self-care (01) ==
LOC: EC 23:16
DX: N20.0 Calculus of kidney (principal); E11.9 Type 2 diabetes mellitus without complications; K21.9 Gastro-esophageal reflux disease without esophagitis; E78.5 Hyperlipidemia, unspecified; I10 Essential (primary) hypertension; F41.9 Anxiety disorder, unspecified; F31.9 Bipolar disorder, unspecified; F17.200 Nicotine dependence, unspecified, uncomplicated; Z88.8 Allergy status to other drugs, medicaments and biological substances; Z88.1 Allergy status to other antibiotic agents; Z91.041 Radiographic dye allergy status; Z88.0 Allergy status to penicillin; Z88.2 Allergy status to sulfonamides; Z79.899 Other long term (current) drug therapy
CPT/HCPCS: 36415; 80053; 85025; 81001; 81025; 87086; 99284; 96374; 96375; J2765; J1885

== ENCOUNTER 2022-03-29 22:52 | Emergency (ER) | payer BC, OTHER ==
[2022-03-29 23:19] VITALS: BP 119/77; PULSE 113; RESP 18; TEMP 97.9
[2022-03-29] MEDS ORDERED: KETOROLAC 15 MG/ML 1 ML VIAL IVP STA (23:37)
[2022-03-29] MEDS ORDERED: SODIUM CHLORIDE 0.9% 1,000 ML IV STA (23:37)
[2022-03-29] MEDS ORDERED: ONDANSETRON 4 MG/2 ML VIAL IVP STA (23:37)
--- NOTE | 2022-03-29 23:40 | ED ---
General Adult HPI - General Chief complaint: Abdominal Pain Stated complaint: Kidney Stones Time Seen by Provider: 03/29/22 23:30 Source: patient Mode of arrival: ambulatory - History of Present Illness Initial comments: Dictation was produced using [employer] dictation software. please excuse any grammatical, word or spelling errors. Chief Complaint: 46-year-old female with past medical history of chronic flank pain presents to the ER for flank pain History of Present Illness: Patient is a 46-year-old female presents to the emergency department again for right-sided flank pain. Patient states she does have some associated nausea and vomiting. She is history of kidney stones that are being addressed by urologist. Patient is here in emergency department at least 5 or 6 times a month for the last several months. States that she takes Percocet for her pain however does not really help. Patient's last CT imaging was performed month and a half ago. She has a history of nonobstructing renal calculi. The ROS documented in this emergency department record has been reviewed and confirmed by me. Those systems with pertinent positive or negative responses have been documented in the HPI. All other systems are other negative and/or noncontributory. PHYSICAL EXAM: General Impression: Alert and oriented x3, not in acute distress HEENT: Normocephalic atraumatic, extra-ocular movements intact, pupils equal and reactive to light bilaterally, mucous membranes moist. Cardiovascular: Heart regular rate and rhythm Chest: Able to complete full sentences, no retractions, no tachypnea Abdomen: abdomen soft, non-tender, non-distended, no organomegaly Musculoskeletal: Pulses present and equal in all extremities, no peripheral edema Motor: no focal deficits noted Neurological: CN II-XII grossly intact, no focal motor or sensory deficits noted Skin: Intact with no visualized rashes Psych: Normal affect and mood ED course: 46-year-old well-appearing female presents emergency department again for acute on chronic right-sided flank pain. Patient is well-known to emergency department for frequent visitations for flank pain. This year patient has been in our emergency department 35th visit to our emergency department for flank pain. Vital signs upon arrival are within acceptable limits. Patient physical examination is benign. She is in no acute distress. Patient has opiate use disorder. She is confronted about her dependence on opiates. States that nothing else really helps her pain. Patient is advised to seek consultation with pain specialist. I was notified at 1146 that the patient eloped prior to workup. - Related Data Home Medications Medication Instructions Recorded Confirmed oxyCODONE-APAP 10-325MG [Percocet 1 tab PO QID PRN 08/29/17 01/06/22 10-325 mg] PARoxetine HCL [Paxil] 40 mg PO DAILY 03/12/18 01/06/22 PARoxetine [Paxil] 20 mg PO DAILY 06/04/18 01/06/22 Loratadine 10 mg PO DAILY 04/21/20 01/06/22 Dapagliflozin Propanediol [Farxiga] 10 mg PO DAILY 12/07/21 01/06/22 Dextroamphetamine/Amphetamine 20 mg PO BID 12/07/21 01/06/22 [Dextroamp-Amphetamin 20 mg Tab] Glimepiride [Amaryl] 4 mg PO DAILY 12/07/21 01/06/22 Multivitamins, Thera [Multivitamin 1 tab PO DAILY 12/07/21 01/06/22 (formulary)] SUMAtriptan succinate [Imitrex] 100 mg PO DAILY PRN 12/07/21 01/06/22 Semaglutide [Rybelsus] 14 mg PO DAILY 01/06/22 01/06/22 Previous Rx's Medication Instructions Recorded Ondansetron Odt [Zofran Odt] 4 mg PO Q8H PRN #12 tab 01/06/22 Ondansetron Odt [Zofran Odt] 4 mg PO Q8HR PRN #15 tab 01/12/22 clindamycin HCL [Cleocin] 300 mg PO Q6HR #40 cap 01/21/22 Cephalexin [Keflex] 500 mg PO Q6HR #40 cap 02/21/22 Promethazine Suppository 25 mg RECTAL TID PRN #15 supp 02/21/22 [Phenergan] Cephalexin [Keflex] 500 mg PO Q12HR 5 Days #10 cap 02/27/22 Fluconazole [Diflucan] 150 mg PO ONCE #1 tab 02/27/22 Allergies Allergy/AdvReac Type Severity Reaction Status Date / Time bupropion HCl Allergy Rash/Hives Verified 03/29/22 23:19 [From Wellbutrin] divalproex sodium Allergy Unknown Verified 03/29/22 23:19 [From Depakote] fentanyl Allergy Swelling Verified 03/29/22 23:19 Iodinated Contrast Media Allergy Anaphylaxis Verified 03/29/22 23:19 [Iodinated Contrast Media - IV Dye] orange juice [[place]] Allergy Rash/Hives Verified 03/29/22 23:19 Sulfa (Sulfonamide Allergy Rash/Hives Verified 03/29/22 23:19 Antibiotics) Penicillins AdvReac Rash/Hives/Gi Verified 03/29/22 23:19 Upset Review of Systems ROS Statement: Those systems with pertinent positive or pertinent negative responses have been documented in the HPI. ROS Other: All systems not noted in ROS Statement are negative. 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 History of Any Multi-Drug Resistant Organisms: ESBL Date of last positivie culture/infection: 05/14/17 MDRO Source:: ESBL URINE, Past Surgical History: Bladder Surgery, Section, Cholecystectomy, Hysterectomy, Orthopedic Surgery, Tubal Ligation Additional Past Surgical History / Comment(s): R ovarian cystectomy, laparoscopic surgery for L ovary that had attached to the bowel, D&C, numerous lithotripsies, nephroscopies, cystoscopies and stents to ureters-none in place at this time, L robotic pyeloplasty with post op infection around kidney which then required a picc line/later removed (pt states was not MRSA), L rotator cuff repair, L wrist tendon surgery, colonoscopy. Kidney stone removal. Past Anesthesia/Blood Transfusion Reactions: Family History of Problems w/ Anesthesia Additional Past Anesthesia/Blood Transfusion Reaction / Comment(s): dad-hard time waking up due to enzyme problems in liver Past Psychological History: ADD/ADHD, Anxiety, Bipolar, Depression, PTSD Smoking Status: Current every day smoker Past Alcohol Use History: None Reported Past Drug Use History: None Reported - Past Family History Brother(s) Family Medical History: Cancer Additional Family Medical History / Comment(s): testicular Father Family Medical History: Coronary Artery Disease (CAD), CVA/TIA, Diabetes Mellitus, Renal Disease Additional Family Medical History / Comment(s): GLAUCOMA,NEUROPATHY HAD TRIPLE CABG, at 56yrs from renal disease. Mother Family Medical History: Hyperlipidemia Additional Family Medical History / Comment(s): DDD, HAD 3 vessel CABG AGE 54. Course Vital Signs 03/29/22 23:15 Temperature 97.9 F Pulse Rate 113 H Respiratory 18 Rate Blood Pressure 119/77 O2 Sat by Pulse 97 Oximetry Disposition Clinical Impression: Chronic flank pain, Opiate dependence Disposition: Left Against Medical Advice Referrals: Rajiv Sexton MD [Primary Care Provider] - 1-2 days Time of Disposition: 23:48
== END 2022-03-29 23:44 | disposition left against medical advice (07) ==
LOC: EC 22:52
DX: R10.9 Unspecified abdominal pain (principal); F11.20 Opioid dependence, uncomplicated; E11.9 Type 2 diabetes mellitus without complications; K21.9 Gastro-esophageal reflux disease without esophagitis; E78.5 Hyperlipidemia, unspecified; I12.9 Hypertensive chronic kidney disease with stage 1 through stage 4 chronic kidney disease, or unspecified chronic kidney disease; N18.9 Chronic kidney disease, unspecified; F41.9 Anxiety disorder, unspecified; F31.9 Bipolar disorder, unspecified; F17.200 Nicotine dependence, unspecified, uncomplicated; Z88.8 Allergy status to other drugs, medicaments and biological substances; Z88.1 Allergy status to other antibiotic agents; Z91.041 Radiographic dye allergy status; Z91.018 Allergy to other foods; Z88.2 Allergy status to sulfonamides; Z88.0 Allergy status to penicillin; Z79.899 Other long term (current) drug therapy; Z53.29 Procedure and treatment not carried out because of patient's decision for other reasons
CPT/HCPCS: 99283

== ENCOUNTER 2022-04-09 03:44 | Emergency (ER) | payer BC, OTHER ==
[2022-04-09 03:59] VITALS: TEMP 98
[2022-04-09 04:23] LABS: Basophils # (A) 0.1 k/uL (0-0.2); Basophils % (A) 1 %; Eosinophils # (A) 0.6 k/uL (0-0.7); Eosinophils % (A) 4 %; HCT 43.7 % (34.0-46.0); HGB 15.4 gm/dL (11.4-16.0); Lymphocytes % (A) 39 %; MCH 30.1 pg (25.0-35.0); MCHC 35.3 g/dL (31.0-37.0); MCV 85.3 fL (80.0-100.0); Mean Platelet Volume 7.6; Monocytes # (A) 0.7 k/uL (0-1.0); Monocytes % (A) 6 %; Neutrophils # (A) 6.2 k/uL (1.3-7.7); Neutrophils % (A) 49 %; Platelet Count 294 k/uL (150-450); RBC 5.12 m/uL (3.80-5.40); RDW 12.4 % (11.5-15.5); WBC 12.8 k/uL (3.8-10.6)
[2022-04-09 04:33] LABS: ALT 30 U/L (4-34); AST 24 U/L (14-36); African American GFR (CKD) >90 (>60 ml/min/1.73 sqM); Albumin 4.8 g/dL (3.5-5.0); Alkaline Phosphatase 107 U/L (38-126); Amylase 58 U/L (30-110); Anion Gap 12 mmol/L; Blood Urea Nitrogen 9 mg/dL (7-17); Calcium 9.8 mg/dL (8.4-10.2); Carbon Dioxide 23 mmol/L (22-30); Chloride 98 mmol/L (98-107); Glucose 264 mg/dL (74-99); Lipase 164 U/L (23-300); Non-African American GFR(CKD) >90 (>60 ml/min/1.73 sqM); Potassium 3.8 mmol/L (3.5-5.1); Sodium 133 mmol/L (137-145); Total Bilirubin 0.8 mg/dL (0.2-1.3); Total Protein 7.5 g/dL (6.3-8.2)
[2022-04-09 04:42] LABS: Appearance,Urine Clear (Clear); Bacteria,Urine Occasional /hpf; Bilirubin,Urine Negative (Negative); Blood,Urine Large (Negative); Budding Yeast,Urine Occasional /hpf; Color,Urine Yellow; Glucose,Urine (UA) 4+ (Negative); Ketones,Urine Negative (Negative); Leukocyte Esterase,Urine Trace (Negative); Nitrite,Urine Negative (Negative); PH, Urine 5.5 (5.0-8.0); Protein,Urine Trace (Negative); RBC,Urine >182 /hpf (0-5); Specific Gravity,Urine 1.035 (1.001-1.035); Squamous Epithelial Cell,Urine 4 /hpf (0-4); Urobilinogen,Urine <2.0 mg/dL (<2.0); WBC,Urine 10 /hpf (0-5)
[2022-04-09] MEDS ORDERED: MORPHINE SULFATE 4 MG/ML SYRINGE IV STA (05:10)
[2022-04-09] MEDS ORDERED: ONDANSETRON 4 MG/2 ML VIAL IVP STA (05:13)
[2022-04-09 06:17] LABS: Large Platelets Present
--- NOTE | 2022-04-09 06:34 | ED ---
Abdominal Pain HPI - General Chief Complaint: Abdominal Pain Stated Complaint: Abd Pain Time Seen by Provider: 04/09/22 05:10 Source: patient Mode of arrival: ambulatory Limitations: no limitations - History of Present Illness Initial Comments: Patient is 46-year-old woman who presents with flank pain. She states the pain is going back in number weeks and is to have procedure but was not able to get into the urologist clinic due to . This episode worse for past 2-3 days. No symptoms of infection noted by patient, no fever or chills. No urine. There has been some hematuria. MD Complaint: flank pain -: week(s) Location: R flank Radiation: none Migration to: no migration Severity: severe Quality: sharp Consistency: constant Improves With: nothing Worsens With: nothing Associated Symptoms: nausea - Related Data Home Medications Medication Instructions Recorded Confirmed oxyCODONE-APAP 10-325MG [Percocet 1 tab PO QID PRN 08/29/17 01/06/22 10-325 mg] PARoxetine HCL [Paxil] 40 mg PO DAILY 03/12/18 01/06/22 PARoxetine [Paxil] 20 mg PO DAILY 06/04/18 01/06/22 Loratadine 10 mg PO DAILY 04/21/20 01/06/22 Dapagliflozin Propanediol [Farxiga] 10 mg PO DAILY 12/07/21 01/06/22 Dextroamphetamine/Amphetamine 20 mg PO BID 12/07/21 01/06/22 [Dextroamp-Amphetamin 20 mg Tab] Glimepiride [Amaryl] 4 mg PO DAILY 12/07/21 01/06/22 Multivitamins, Thera [Multivitamin 1 tab PO DAILY 12/07/21 01/06/22 (formulary)] SUMAtriptan succinate [Imitrex] 100 mg PO DAILY PRN 12/07/21 01/06/22 Semaglutide [Rybelsus] 14 mg PO DAILY 01/06/22 01/06/22 Previous Rx's Medication Instructions Recorded Ondansetron Odt [Zofran Odt] 4 mg PO Q8H PRN #12 tab 01/06/22 Ondansetron Odt [Zofran Odt] 4 mg PO Q8HR PRN #15 tab 01/12/22 clindamycin HCL [Cleocin] 300 mg PO Q6HR #40 cap 01/21/22 Cephalexin [Keflex] 500 mg PO Q6HR #40 cap 02/21/22 Promethazine Suppository 25 mg RECTAL TID PRN #15 supp 02/21/22 [Phenergan] Cephalexin [Keflex] 500 mg PO Q12HR 5 Days #10 cap 02/27/22 Fluconazole [Diflucan] 150 mg PO ONCE #1 tab 02/27/22 Allergies Allergy/AdvReac Type Severity Reaction Status Date / Time bupropion HCl Allergy Rash/Hives Verified 03/29/22 23:19 [From Wellbutrin] divalproex sodium Allergy Unknown Verified 03/29/22 23:19 [From Depakote] fentanyl Allergy Swelling Verified 03/29/22 23:19 Iodinated Contrast Media Allergy Anaphylaxis Verified 03/29/22 23:19 [Iodinated Contrast Media - IV Dye] orange juice [[place]] Allergy Rash/Hives Verified 03/29/22 23:19 Sulfa (Sulfonamide Allergy Rash/Hives Verified 03/29/22 23:19 Antibiotics) Penicillins AdvReac Rash/Hives/Gi Verified 03/29/22 23:19 Upset Review of Systems ROS Statement: Those systems with pertinent positive or pertinent negative responses have been documented in the HPI. ROS Other: All systems not noted in ROS Statement are negative. Constitutional: Denies: fever, chills, weakness Respiratory: Denies: cough, dyspnea Cardiovascular: Denies: chest pain, palpitations Gastrointestinal: Reports: abdominal pain, nausea. Denies: vomiting, diarrhea, constipation, melena, hematochezia Genitourinary: Reports: hematuria. 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 History of Any Multi-Drug Resistant Organisms: ESBL Date of last positivie culture/infection: 05/14/17 MDRO Source:: ESBL URINE, Past Surgical History: Bladder Surgery, Section, Cholecystectomy, Hysterectomy, Orthopedic Surgery, Tubal Ligation Additional Past Surgical History / Comment(s): R ovarian cystectomy, laparoscopic surgery for L ovary that had attached to the bowel, D&C, numerous lithotripsies, nephroscopies, cystoscopies and stents to ureters-none in place at this time, L robotic pyeloplasty with post op infection around kidney which then required a picc line/later removed (pt states was not MRSA), L rotator cuff repair, L wrist tendon surgery, colonoscopy. Kidney stone removal. Past Anesthesia/Blood Transfusion Reactions: Family History of Problems w/ Anesthesia Additional Past Anesthesia/Blood Transfusion Reaction / Comment(s): dad-hard time waking up due to enzyme problems in liver Past Psychological History: ADD/ADHD, Anxiety, Bipolar, Depression, PTSD Smoking Status: Current every day smoker Past Alcohol Use History: None Reported Past Drug Use History: None Reported - Past Family History Brother(s) Family Medical History: Cancer Additional Family Medical History / Comment(s): testicular Father Family Medical History: Coronary Artery Disease (CAD), CVA/TIA, Diabetes Mellitus, Renal Disease Additional Family Medical History / Comment(s): GLAUCOMA,NEUROPATHY HAD TRIPLE CABG, at 56yrs from renal disease. Mother Family Medical History: Hyperlipidemia Additional Family Medical History / Comment(s): DDD, HAD 3 vessel CABG AGE 54. General Exam Limitations: no limitations General appearance: alert, in no apparent distress Head exam: Present: atraumatic, normocephalic Eye exam: Present: normal appearance Respiratory exam: Present: normal lung sounds bilaterally. Absent: respiratory distress, wheezes, rales, rhonchi, stridor Cardiovascular Exam: Present: regular rate, normal rhythm, normal heart sounds. Absent: systolic murmur, diastolic murmur, rubs, gallop GI/Abdominal exam: Present: soft. Absent: distended, tenderness, guarding, rebound, rigid, mass, pulsatile mass Extremities exam: Present: normal inspection, normal capillary refill. Absent: pedal edema, calf tenderness Back exam: Present: CVA tenderness (R). Absent: CVA tenderness (L) Neurological exam: Present: alert Skin exam: Present: warm, dry, intact, normal color. Absent: rash Course Vital Signs 04/09/22 04/09/22 04/09/22 03:55 05:32 06:37 Temperature 98 F Pulse Rate 95 68 85 Respiratory 16 20 16 Rate Blood Pressure 128/77 150/85 125/80 O2 Sat by Pulse 94 L 99 98 Oximetry Medical Decision Making - Lab Data Result diagrams: 04/09/22 04:14 04/09/22 04:14 Lab Results 04/09/22 04/09/22 04/09/22 Range/Units 04:14 04:14 04:14 WBC 12.8 H (3.8-10.6) k/uL RBC 5.12 (3.80-5.40) m/uL Hgb 15.4 (11.4-16.0) gm/dL Hct 43.7 (34.0-46.0) % MCV 85.3 (80.0-100.0) fL MCH 30.1 (25.0-35.0) pg MCHC 35.3 (31.0-37.0) g/dL RDW 12.4 (11.5-15.5) % Plt Count 294 (150-450) k/uL MPV 7.6 Neutrophils % 49 % Lymphocytes % 39 % Monocytes % 6 % Eosinophils % 4 % Basophils % 1 % Neutrophils # 6.2 (1.3-7.7) k/uL Lymphocytes # 5.0 H (1.0-4.8) k/uL Monocytes # 0.7 (0-1.0) k/uL Eosinophils # 0.6 (0-0.7) k/uL Basophils # 0.1 (0-0.2) k/uL Manual Slide Review Performed Large Platelets Present Sodium (137-145) mmol/L Potassium (3.5-5.1) mmol/L Chloride (98-107) mmol/L Carbon Dioxide (22-30) mmol/L Anion Gap mmol/L BUN (7-17) mg/dL Creatinine (0.52-1.04) mg/dL Est GFR (CKD-EPI)AfAm (>60 ml/min/1.73 sqM) Est GFR (CKD-EPI)NonAf (>60 ml/min/1.73 sqM) Glucose (74-99) mg/dL Calcium (8.4-10.2) mg/dL Total Bilirubin (0.2-1.3) mg/dL AST (14-36) U/L ALT (4-34) U/L Alkaline Phosphatase (38-126) U/L Total Protein (6.3-8.2) g/dL Albumin (3.5-5.0) g/dL Amylase (30-110) U/L Lipase (23-300) U/L Urine Color Yellow Yellow Urine Appearance Cloudy H Clear (Clear) Urine pH 5.5 5.5 (5.0-8.0) Ur Specific [place] 1.037 H 1.035 (1.001-1.035) Urine Protein Trace H Trace H (Negative) Urine Glucose (UA) 4+ H 4+ H (Negative) Urine Ketones Negative Negative (Negative) Urine Blood Large H Large H (Negative) Urine Nitrite Negative Negative (Negative) Urine Bilirubin Negative Negative (Negative) Urine Urobilinogen <2.0 <2.0 (<2.0) mg/dL Ur Leukocyte Esterase Negative Trace H (Negative) Urine RBC >182 H >182 H (0-5) /hpf Urine WBC 65 H 10 H (0-5) /hpf Ur Squamous Epith Cells 3 4 (0-4) /hpf Urine Bacteria Occasional H (None) /hpf Hyaline Casts 4 H (0-2) /lpf Urine Yeast (Budding) Many H Occasional H (None) /hpf Urine HCG, Qual (Not Detectd) 04/09/22 04/09/22 Range/Units 04:14 04:14 WBC (3.8-10.6) k/uL RBC (3.80-5.40) m/uL Hgb (11.4-16.0) gm/dL Hct (34.0-46.0) % MCV (80.0-100.0) fL MCH (25.0-35.0) pg MCHC (31.0-37.0) g/dL RDW (11.5-15.5) % Plt Count (150-450) k/uL MPV Neutrophils % % Lymphocytes % % Monocytes % % Eosinophils % % Basophils % % Neutrophils # (1.3-7.7) k/uL Lymphocytes # (1.0-4.8) k/uL Monocytes # (0-1.0) k/uL Eosinophils # (0-0.7) k/uL Basophils # (0-0.2) k/uL Manual Slide Review Large Platelets Sodium 133 L (137-145) mmol/L Potassium 3.8 (3.5-5.1) mmol/L Chloride 98 (98-107) mmol/L Carbon Dioxide 23 (22-30) mmol/L Anion Gap 12 mmol/L BUN 9 (7-17) mg/dL Creatinine 0.56 (0.52-1.04) mg/dL Est GFR (CKD-EPI)AfAm >90 (>60 ml/min/1.73 sqM) Est GFR (CKD-EPI)NonAf >90 (>60 ml/min/1.73 sqM) Glucose 264 H (74-99) mg/dL Calcium 9.8 (8.4-10.2) mg/dL Total Bilirubin 0.8 (0.2-1.3) mg/dL AST 24 (14-36) U/L ALT 30 (4-34) U/L Alkaline Phosphatase 107 (38-126) U/L Total Protein 7.5 (6.3-8.2) g/dL Albumin 4.8 (3.5-5.0) g/dL Amylase 58 (30-110) U/L Lipase 164 (23-300) U/L Urine Color Urine Appearance (Clear) Urine pH (5.0-8.0) Ur Specific [place] (1.001-1.035) Urine Protein (Negative) Urine Glucose (UA) (Negative) Urine Ketones (Negative) Urine Blood (Negative) Urine Nitrite (Negative) Urine Bilirubin (Negative) Urine Urobilinogen (<2.0) mg/dL Ur Leukocyte Esterase (Negative) Urine RBC (0-5) /hpf Urine WBC (0-5) /hpf Ur Squamous Epith Cells (0-4) /hpf Urine Bacteria (None) /hpf Hyaline Casts (0-2) /lpf Urine Yeast (Budding) (None) /hpf Urine HCG, Qual Not Detected (Not Detectd) Disposition Clinical Impression: Flank pain Disposition: HOME SELF-CARE Condition: Good Instructions (If sedation given, give patient instructions): Flank Pain (ED) Is patient prescribed a controlled substance at d/c from ED?: No Referrals: Rajiv Sexton MD [Primary Care Provider] - 1-2 days
[2022-04-09 06:38] VITALS: BP 125/80; PULSE 85; RESP 16
[2022-04-09 22:02] LABS: Appearance,Urine Cloudy (Clear); Bilirubin,Urine Negative (Negative); Blood,Urine Large (Negative); Budding Yeast,Urine Many /hpf; Color,Urine Yellow; Glucose,Urine (UA) 4+ (Negative); Hyaline Casts,Urine 4 /lpf (0-2); Ketones,Urine Negative (Negative); Leukocyte Esterase,Urine Negative (Negative); Nitrite,Urine Negative (Negative); PH, Urine 5.5 (5.0-8.0); Protein,Urine Trace (Negative); RBC,Urine >182 /hpf (0-5); Specific Gravity,Urine 1.037 (1.001-1.035); Squamous Epithelial Cell,Urine 3 /hpf (0-4); Urobilinogen,Urine <2.0 mg/dL (<2.0); WBC,Urine 65 /hpf (0-5)
== END 2022-04-09 07:02 | disposition home or self-care (01) ==
LOC: EC 03:44
DX: R10.9 Unspecified abdominal pain (principal); I10 Essential (primary) hypertension; E11.9 Type 2 diabetes mellitus without complications; E78.5 Hyperlipidemia, unspecified; Z91.041 Radiographic dye allergy status; K21.9 Gastro-esophageal reflux disease without esophagitis; F17.200 Nicotine dependence, unspecified, uncomplicated; Z88.2 Allergy status to sulfonamides; Z88.0 Allergy status to penicillin; Z88.5 Allergy status to narcotic agent; Z88.8 Allergy status to other drugs, medicaments and biological substances; Z79.84 Long term (current) use of oral hypoglycemic drugs; Z79.899 Other long term (current) drug therapy
CPT/HCPCS: 99284 ×2; 96374 ×2; 96375 ×2; 36415; 80053; 82150; 83690; 85025; 81001; 81025; J2270; J2405

== ENCOUNTER 2022-04-18 18:22 | Emergency (ER) | payer BC, OTHER ==
[2022-04-18 19:27] VITALS: TEMP 98
[2022-04-18] MEDS ORDERED: ONDANSETRON 4 MG/2 ML VIAL IVP STA (21:43)
[2022-04-18] MEDS ORDERED: SODIUM CHLORIDE 0.9% 1,000 ML IV STA (21:43)
[2022-04-18] MEDS ORDERED: MORPHINE SULFATE 4 MG/ML SYRINGE IV STA (21:43)
--- NOTE | 2022-04-18 22:00 | XR ---
EXAMINATION TYPE: XR KUB DATE OF EXAM: 04/18/2022 COMPARISON: 02/08/2022 HISTORY: Abdominal pain TECHNIQUE: 2 views upright FINDINGS: No sign of intestinal obstruction or pneumoperitoneum. Fecal pattern is normal. No sign of a mass. There are no pathologic calcifications over the kidneys. Lung bases are clear. No evidence of focal bone destruction. There is a mild lumbar levoscoliosis. IMPRESSION: Nonacute abdomen.
[2022-04-18 22:14] LABS: HCT 45.2 % (34.0-46.0); HGB 16.1 gm/dL (11.4-16.0); MCH 30.6 pg (25.0-35.0); MCHC 35.6 g/dL (31.0-37.0); MCV 85.7 fL (80.0-100.0); Mean Platelet Volume 8.1; Platelet Count 291 k/uL (150-450); RBC 5.27 m/uL (3.80-5.40); RDW 12.6 % (11.5-15.5); WBC 14.2 k/uL (3.8-10.6)
[2022-04-18 22:23] LABS: ALT 34 U/L (4-34); AST 28 U/L (14-36); African American GFR (CKD) >90 (>60 ml/min/1.73 sqM); Albumin 4.8 g/dL (3.5-5.0); Alkaline Phosphatase 108 U/L (38-126); Anion Gap 18 mmol/L; Blood Urea Nitrogen 8 mg/dL (7-17); Calcium 9.7 mg/dL (8.4-10.2); Carbon Dioxide 19 mmol/L (22-30); Chloride 100 mmol/L (98-107); Glucose 279 mg/dL (74-99); Lipase 632 U/L (23-300); Non-African American GFR(CKD) >90 (>60 ml/min/1.73 sqM); Potassium 3.5 mmol/L (3.5-5.1); Sodium 137 mmol/L (137-145); Total Bilirubin 0.6 mg/dL (0.2-1.3); Total Protein 7.7 g/dL (6.3-8.2)
[2022-04-18 22:49] LABS: Lymphocytes # (M) 6.53 k/uL (1.0-4.8); Monocytes # (M) 0.28 k/uL (0-1.0); Neutrophils # (M) 7.38 k/uL (1.3-7.7); Neutrophils % (M) 52 %; Nucleated Red Blood Cells 0 /100 WBC (0-0); Total Cells Counted 100
[2022-04-18 22:50] LABS: RBC Morphology Normal
[2022-04-18 23:13] VITALS: BP 130/79; PULSE 83; RESP 18
--- NOTE | 2022-04-18 23:18 | ED ---
Abdominal Pain HPI - General Chief Complaint: Abdominal Pain Stated Complaint: abd pain Time Seen by Provider: 04/18/22 21:30 Source: patient Mode of arrival: ambulatory Limitations: no limitations - History of Present Illness Initial Comments: Patient is a 46 year old female who presents to the ED with a chief complaint of right flank pain. This is a chronic issue for patient who presents for right flank pain 3-7 times a month in our emergency department. Patient states the pain got worse Sunday. States she took her Percocet with little relief. Reports 2 episodes of nausea and vomiting today. Denies fever, chills, burning with urination, vaginal discharge. Admits to blood in the urine. Last abdominal CT was February 18 which showed a nonobstructing right sided small renal calculus. It was recommended that patient establish care with pain specialist however patient states her primary care provider told her not to. - Related Data Home Medications Medication Instructions Recorded Confirmed oxyCODONE-APAP 10-325MG [Percocet 1 tab PO QID PRN 08/29/17 01/06/22 10-325 mg] PARoxetine HCL [Paxil] 40 mg PO DAILY 03/12/18 01/06/22 PARoxetine [Paxil] 20 mg PO DAILY 06/04/18 01/06/22 Loratadine 10 mg PO DAILY 04/21/20 01/06/22 Dapagliflozin Propanediol [Farxiga] 10 mg PO DAILY 12/07/21 01/06/22 Dextroamphetamine/Amphetamine 20 mg PO BID 12/07/21 01/06/22 [Dextroamp-Amphetamin 20 mg Tab] Glimepiride [Amaryl] 4 mg PO DAILY 12/07/21 01/06/22 Multivitamins, Thera [Multivitamin 1 tab PO DAILY 12/07/21 01/06/22 (formulary)] SUMAtriptan succinate [Imitrex] 100 mg PO DAILY PRN 12/07/21 01/06/22 Semaglutide [Rybelsus] 14 mg PO DAILY 01/06/22 01/06/22 Previous Rx's Medication Instructions Recorded Ondansetron Odt [Zofran Odt] 4 mg PO Q8H PRN #12 tab 01/06/22 Ondansetron Odt [Zofran Odt] 4 mg PO Q8HR PRN #15 tab 01/12/22 clindamycin HCL [Cleocin] 300 mg PO Q6HR #40 cap 01/21/22 Cephalexin [Keflex] 500 mg PO Q6HR #40 cap 02/21/22 Promethazine Suppository 25 mg RECTAL TID PRN #15 supp 02/21/22 [Phenergan] Cephalexin [Keflex] 500 mg PO Q12HR 5 Days #10 cap 02/27/22 Fluconazole [Diflucan] 150 mg PO ONCE #1 tab 02/27/22 Allergies Allergy/AdvReac Type Severity Reaction Status Date / Time bupropion HCl Allergy Rash/Hives Verified 04/18/22 19:26 [From Wellbutrin] divalproex sodium Allergy Unknown Verified 04/18/22 19:26 [From Depakote] fentanyl Allergy Swelling Verified 04/18/22 19:26 Iodinated Contrast Media Allergy Anaphylaxis Verified 04/18/22 19:26 [Iodinated Contrast Media - IV Dye] orange juice [Gage] Allergy Rash/Hives Verified 04/18/22 19:26 Sulfa (Sulfonamide Allergy Rash/Hives Verified 04/18/22 19:26 Antibiotics) Penicillins AdvReac Rash/Hives/Gi Verified 04/18/22 19:26 Upset Review of Systems ROS Statement: Those systems with pertinent positive or pertinent negative responses have been documented in the HPI. ROS Other: All systems not noted in ROS Statement are negative. 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 History of Any Multi-Drug Resistant Organisms: ESBL Date of last positivie culture/infection: 05/14/17 MDRO Source:: ESBL URINE, Past Surgical History: Bladder Surgery, Section, Cholecystectomy, Hysterectomy, Orthopedic Surgery, Tubal Ligation Additional Past Surgical History / Comment(s): R ovarian cystectomy, laparoscopic surgery for L ovary that had attached to the bowel, D&C, numerous lithotripsies, nephroscopies, cystoscopies and stents to ureters-none in place at this time, L robotic pyeloplasty with post op infection around kidney which then required a picc line/later removed (pt states was not MRSA), L rotator cuff repair, L wrist tendon surgery, colonoscopy. Kidney stone removal. Past Anesthesia/Blood Transfusion Reactions: Family History of Problems w/ Anesthesia Additional Past Anesthesia/Blood Transfusion Reaction / Comment(s): dad-hard time waking up due to enzyme problems in liver Past Psychological History: ADD/ADHD, Anxiety, Bipolar, Depression, PTSD Smoking Status: Current every day smoker Past Alcohol Use History: None Reported Past Drug Use History: None Reported - Past Family History Brother(s) Family Medical History: Cancer Additional Family Medical History / Comment(s): testicular Father Family Medical History: Coronary Artery Disease (CAD), CVA/TIA, Diabetes Mellitus, Renal Disease Additional Family Medical History / Comment(s): GLAUCOMA,NEUROPATHY HAD TRIPLE CABG, at 56yrs from renal disease. Mother Family Medical History: Hyperlipidemia Additional Family Medical History / Comment(s): DDD, HAD 3 vessel CABG AGE 54. General Exam Limitations: no limitations General appearance: alert Head exam: Present: atraumatic, normocephalic, normal inspection Respiratory exam: Present: normal lung sounds bilaterally. Absent: respiratory distress, wheezes, rales, rhonchi, stridor Cardiovascular Exam: Present: regular rate, normal rhythm, normal heart sounds. Absent: systolic murmur, diastolic murmur, rubs, gallop, clicks GI/Abdominal exam: Present: soft, normal bowel sounds. Absent: distended, tenderness, guarding, rebound, rigid Back exam: Present: CVA tenderness (R). Absent: CVA tenderness (L), paraspinal tenderness, vertebral tenderness Neurological exam: Present: alert, oriented X3, CN II-XII intact Psychiatric exam: Present: normal affect, normal mood Skin exam: Present: warm, dry, intact, normal color. Absent: rash Course Vital Signs 04/18/22 04/18/22 19:24 23:12 Temperature 98 F Pulse Rate 115 H 83 Respiratory 20 18 Rate Blood Pressure 112/75 130/79 O2 Sat by Pulse 99 99 Oximetry Medical Decision Making - Medical Decision Making This is a 46-year-old female presenting with acute on chronic flank pain. Patient well-appearing and in no apparent distress. Afebrile. Laboratory studies obtained. There is a leukocytosis at 14.2 which is near patient's baseline. Urinalysis reveals blood and glucose, unchanged from previous visits. Lipase is elevated at 632. Patient does not have epigastric pain. She denies alcohol use and use of new medications. KUB x-ray negative for acute process. Pain and nausea controlled in the emergency department. Results discussed with patient. I highly encouraged patient to follow up with the pain specialist. We also discussed uncontrolled blood sugar. Patient to follow up with PCP and urologist. She verbalizes understanding. Dr. Nelson is my attending. - Lab Data Result diagrams: 04/18/22 22:07 04/18/22 22:07 Lab Results 04/18/22 04/18/22 04/18/22 Range/Units 21:49 21:49 22:07 WBC 14.2 H (3.8-10.6) k/uL RBC 5.27 (3.80-5.40) m/uL Hgb 16.1 H (11.4-16.0) gm/dL Hct 45.2 (34.0-46.0) % MCV 85.7 (80.0-100.0) fL MCH 30.6 (25.0-35.0) pg MCHC 35.6 (31.0-37.0) g/dL RDW 12.6 (11.5-15.5) % Plt Count 291 (150-450) k/uL MPV 8.1 Neutrophils % (Manual) 52 % Lymphocytes % (Manual) 46 % Monocytes % (Manual) 2 % Neutrophils # (Manual) 7.38 (1.3-7.7) k/uL Lymphocytes # (Manual) 6.53 H (1.0-4.8) k/uL Monocytes # (Manual) 0.28 (0-1.0) k/uL Nucleated RBCs 0 (0-0) /100 WBC Manual Slide Review Performed RBC Morphology Normal Sodium (137-145) mmol/L Potassium (3.5-5.1) mmol/L Chloride (98-107) mmol/L Carbon Dioxide (22-30) mmol/L Anion Gap mmol/L BUN (7-17) mg/dL Creatinine (0.52-1.04) mg/dL Est GFR (CKD-EPI)AfAm (>60 ml/min/1.73 sqM) Est GFR (CKD-EPI)NonAf (>60 ml/min/1.73 sqM) Glucose (74-99) mg/dL Calcium (8.4-10.2) mg/dL Total Bilirubin (0.2-1.3) mg/dL AST (14-36) U/L ALT (4-34) U/L Alkaline Phosphatase (38-126) U/L Total Protein (6.3-8.2) g/dL Albumin (3.5-5.0) g/dL Lipase (23-300) U/L Urine Color Light Red Urine Appearance Cloudy H (Clear) Urine pH 5.5 (5.0-8.0) Ur Specific Candia 1.034 (1.001-1.035) Urine Protein Trace H (Negative) Urine Glucose (UA) 4+ H (Negative) Urine Ketones Negative (Negative) Urine Blood Large H (Negative) Urine Nitrite Negative (Negative) Urine Bilirubin Negative (Negative) Urine Urobilinogen <2.0 (<2.0) mg/dL Ur Leukocyte Esterase Negative (Negative) Urine RBC >182 H (0-5) /hpf Urine WBC 2 (0-5) /hpf Ur Squamous Epith Cells 3 (0-4) /hpf Urine Bacteria Rare H (None) /hpf Urine Mucus Rare H (None) /hpf Urine Yeast (Budding) Many H (None) /hpf Urine HCG, Qual Not Detected (Not Detectd) 04/18/22 Range/Units 22:07 WBC (3.8-10.6) k/uL RBC (3.80-5.40) m/uL Hgb (11.4-16.0) gm/dL Hct (34.0-46.0) % MCV (80.0-100.0) fL MCH (25.0-35.0) pg MCHC (31.0-37.0) g/dL RDW (11.5-15.5) % Plt Count (150-450) k/uL MPV Neutrophils % (Manual) % Lymphocytes % (Manual) % Monocytes % (Manual) % Neutrophils # (Manual) (1.3-7.7) k/uL Lymphocytes # (Manual) (1.0-4.8) k/uL Monocytes # (Manual) (0-1.0) k/uL Nucleated RBCs (0-0) /100 WBC Manual Slide Review RBC Morphology Sodium 137 (137-145) mmol/L Potassium 3.5 (3.5-5.1) mmol/L Chloride 100 (98-107) mmol/L Carbon Dioxide 19 L (22-30) mmol/L Anion Gap 18 mmol/L BUN 8 (7-17) mg/dL Creatinine 0.55 (0.52-1.04) mg/dL Est GFR (CKD-EPI)AfAm >90 (>60 ml/min/1.73 sqM) Est GFR (CKD-EPI)NonAf >90 (>60 ml/min/1.73 sqM) Glucose 279 H (74-99) mg/dL Calcium 9.7 (8.4-10.2) mg/dL Total Bilirubin 0.6 (0.2-1.3) mg/dL AST 28 (14-36) U/L ALT 34 (4-34) U/L Alkaline Phosphatase 108 (38-126) U/L Total Protein 7.7 (6.3-8.2) g/dL Albumin 4.8 (3.5-5.0) g/dL Lipase 632 H (23-300) U/L Urine Color Urine Appearance (Clear) Urine pH (5.0-8.0) Ur Specific Candia (1.001-1.035) Urine Protein (Negative) Urine Glucose (UA) (Negative) Urine Ketones (Negative) Urine Blood (Negative) Urine Nitrite (Negative) Urine Bilirubin (Negative) Urine Urobilinogen (<2.0) mg/dL Ur Leukocyte Esterase (Negative) Urine RBC (0-5) /hpf Urine WBC (0-5) /hpf Ur Squamous Epith Cells (0-4) /hpf Urine Bacteria (None) /hpf Urine Mucus (None) /hpf Urine Yeast (Budding) (None) /hpf Urine HCG, Qual (Not Detectd) Disposition Clinical Impression: Right flank pain, Nausea and vomiting Disposition: HOME SELF-CARE Condition: Good Instructions (If sedation given, give patient instructions): Flank Pain (ED) Additional Instructions: Please follow up with your urologist. It is recommended you do see a pain specialist. Return to the emergency department if you experience new, concerning, or worsening symptoms. Is patient prescribed a controlled substance at d/c from ED?: No Referrals: Rajiv Sexton MD [Primary Care Provider] - 1-2 days Time of Disposition: 23:18
[2022-04-18 23:29] LABS: Appearance,Urine Cloudy (Clear); Bacteria,Urine Rare /hpf; Bilirubin,Urine Negative (Negative); Blood,Urine Large (Negative); Budding Yeast,Urine Many /hpf; Color,Urine Light Red; Glucose,Urine (UA) 4+ (Negative); Ketones,Urine Negative (Negative); Leukocyte Esterase,Urine Negative (Negative); Mucus,Urine Rare /hpf; Nitrite,Urine Negative (Negative); PH, Urine 5.5 (5.0-8.0); Protein,Urine Trace (Negative); RBC,Urine >182 /hpf (0-5); Specific Gravity,Urine 1.034 (1.001-1.035); Squamous Epithelial Cell,Urine 3 /hpf (0-4); Urobilinogen,Urine <2.0 mg/dL (<2.0); WBC,Urine 2 /hpf (0-5)
== END 2022-04-18 23:49 | disposition home or self-care (01) ==
LOC: EC 18:22
DX: R10.9 Unspecified abdominal pain (principal); I10 Essential (primary) hypertension; E11.9 Type 2 diabetes mellitus without complications; K21.9 Gastro-esophageal reflux disease without esophagitis; E78.5 Hyperlipidemia, unspecified; F90.9 Attention-deficit hyperactivity disorder, unspecified type; F41.9 Anxiety disorder, unspecified; F31.9 Bipolar disorder, unspecified; F17.200 Nicotine dependence, unspecified, uncomplicated; Z79.899 Other long term (current) drug therapy; Z79.84 Long term (current) use of oral hypoglycemic drugs; Z91.041 Radiographic dye allergy status; Z88.8 Allergy status to other drugs, medicaments and biological substances; Z88.1 Allergy status to other antibiotic agents; Z88.2 Allergy status to sulfonamides; Z88.0 Allergy status to penicillin
CPT/HCPCS: 36415; 80053; 83690; 85025; 81001; 81025; 74018; 99284; 96374; 96375; 96361; J2270; J2405

== ENCOUNTER 2022-05-13 23:25 | Emergency (ER) | payer BC, OTHER ==
[2022-05-13 23:28] VITALS: TEMP 97.8
[2022-05-13] MEDS ORDERED: MORPHINE SULFATE 4 MG/ML SYRINGE IV STA (23:42)
[2022-05-13] MEDS ORDERED: KETOROLAC 15 MG/ML 1 ML VIAL IVP STA (23:42)
[2022-05-13] MEDS ORDERED: ONDANSETRON 4 MG/2 ML VIAL IVP STA (23:42)
[2022-05-13] MEDS ORDERED: SODIUM CHLORIDE 0.9% 1,000 ML IV STA (23:42)
--- NOTE | 2022-05-13 23:47 | ED ---
Back Pain HPI - General Chief Complaint: Back Pain/Injury Stated Complaint: abdominal pain Time Seen by Provider: 05/13/22 23:35 Source: patient, RN notes reviewed Limitations: no limitations - History of Present Illness Initial Comments: This is a pleasant 46-year-old female with a history of recurrent and frequent kidney stones. Patient is well-known to our emergency center. Patient presents again today with right flank pain and low back pain. Patient also had a fever, vomiting, shaking chills patient known diabetic. Patient known to have out of control blood sugars which has been a chronic issue with the patient. - Related Data Home Medications Medication Instructions Recorded Confirmed oxyCODONE-APAP 10-325MG [Percocet 1 tab PO QID PRN 08/29/17 01/06/22 10-325 mg] PARoxetine HCL [Paxil] 40 mg PO DAILY 03/12/18 01/06/22 PARoxetine [Paxil] 20 mg PO DAILY 06/04/18 01/06/22 Loratadine 10 mg PO DAILY 04/21/20 01/06/22 Dapagliflozin Propanediol [Farxiga] 10 mg PO DAILY 12/07/21 01/06/22 Dextroamphetamine/Amphetamine 20 mg PO BID 12/07/21 01/06/22 [Dextroamp-Amphetamin 20 mg Tab] Glimepiride [Amaryl] 4 mg PO DAILY 12/07/21 01/06/22 Multivitamins, Thera [Multivitamin 1 tab PO DAILY 12/07/21 01/06/22 (formulary)] SUMAtriptan succinate [Imitrex] 100 mg PO DAILY PRN 12/07/21 01/06/22 Semaglutide [Rybelsus] 14 mg PO DAILY 01/06/22 01/06/22 Previous Rx's Medication Instructions Recorded Ondansetron Odt [Zofran Odt] 4 mg PO Q8H PRN #12 tab 01/06/22 Ondansetron Odt [Zofran Odt] 4 mg PO Q8HR PRN #15 tab 01/12/22 clindamycin HCL [Cleocin] 300 mg PO Q6HR #40 cap 01/21/22 Cephalexin [Keflex] 500 mg PO Q6HR #40 cap 02/21/22 Promethazine Suppository 25 mg RECTAL TID PRN #15 supp 02/21/22 [Phenergan] Cephalexin [Keflex] 500 mg PO Q12HR 5 Days #10 cap 02/27/22 Fluconazole [Diflucan] 150 mg PO ONCE #1 tab 02/27/22 Cefdinir 300 mg PO Q12HR #14 cap 05/14/22 Allergies Allergy/AdvReac Type Severity Reaction Status Date / Time bupropion HCl Allergy Rash/Hives Verified 05/13/22 23:28 [From Wellbutrin] divalproex sodium Allergy Unknown Verified 05/13/22 23:28 [From Depakote] fentanyl Allergy Swelling Verified 05/13/22 23:28 Iodinated Contrast Media Allergy Anaphylaxis Verified 05/13/22 23:28 [Iodinated Contrast Media - IV Dye] orange juice [Nye] Allergy Rash/Hives Verified 05/13/22 23:28 Sulfa (Sulfonamide Allergy Rash/Hives Verified 05/13/22 23:28 Antibiotics) Penicillins AdvReac Rash/Hives/Gi Verified 05/13/22 23:28 Upset Review of Systems ROS Statement: Those systems with pertinent positive or pertinent negative responses have been documented in the HPI. ROS Other: All systems not noted in ROS Statement are negative. 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 History of Any Multi-Drug Resistant Organisms: ESBL Date of last positivie culture/infection: 05/14/17 MDRO Source:: ESBL URINE, Past Surgical History: Bladder Surgery, Section, Cholecystectomy, Hysterectomy, Orthopedic Surgery, Tubal Ligation Additional Past Surgical History / Comment(s): R ovarian cystectomy, laparoscopic surgery for L ovary that had attached to the bowel, D&C, numerous lithotripsies, nephroscopies, cystoscopies and stents to ureters-none in place at this time, L robotic pyeloplasty with post op infection around kidney which then required a picc line/later removed (pt states was not MRSA), L rotator cuff repair, L wrist tendon surgery, colonoscopy. Kidney stone removal. Past Anesthesia/Blood Transfusion Reactions: Family History of Problems w/ Anesthesia Additional Past Anesthesia/Blood Transfusion Reaction / Comment(s): dad-hard time waking up due to enzyme problems in liver Past Psychological History: ADD/ADHD, Anxiety, Bipolar, Depression, PTSD Smoking Status: Current every day smoker Past Alcohol Use History: None Reported Past Drug Use History: None Reported - Past Family History Brother(s) Family Medical History: Cancer Additional Family Medical History / Comment(s): testicular Father Family Medical History: Coronary Artery Disease (CAD), CVA/TIA, Diabetes Mellitus, Renal Disease Additional Family Medical History / Comment(s): GLAUCOMA,NEUROPATHY HAD TRIPLE CABG, at 56yrs from renal disease. Mother Family Medical History: Hyperlipidemia Additional Family Medical History / Comment(s): DDD, HAD 3 vessel CABG AGE 54. General Exam - General Exam Comments Initial Comments: Patient noted to be tachycardic, and mild distress. The refill less than 2 seconds. Patient has no mottling. Limitations: no limitations General appearance: alert, in no apparent distress Head exam: Present: atraumatic, normocephalic, normal inspection Eye exam: Present: normal appearance, PERRL, EOMI. Absent: scleral icterus, conjunctival injection, periorbital swelling ENT exam: Present: normal exam, normal oropharynx, mucous membranes moist, normal external ear exam. Absent: mucous membranes dry Neck exam: Present: normal inspection, full ROM. Absent: tenderness, meningismus, lymphadenopathy Respiratory exam: Present: normal lung sounds bilaterally. Absent: respiratory distress, wheezes, rales, rhonchi, stridor Cardiovascular Exam: Present: normal rhythm, tachycardia, normal heart sounds. Absent: systolic murmur, diastolic murmur, rubs, gallop, clicks GI/Abdominal exam: Present: soft, tenderness (Very minimal tenderness across the upper abdomen.), normal bowel sounds. Absent: distended, guarding, rebound, rigid Extremities exam: Present: normal inspection, full ROM, normal capillary refill. Absent: tenderness, pedal edema, joint swelling, calf tenderness Back exam: Present: normal inspection. Absent: CVA tenderness (L), vertebral tenderness Neurological exam: Present: alert, oriented X3, CN II-XII intact. Absent: motor sensory deficit Psychiatric exam: Present: normal affect, normal mood Skin exam: Present: warm, dry, intact, normal color. Absent: rash Course Vital Signs 05/13/22 05/14/22 23:25 02:23 Temperature 97.8 F Pulse Rate 111 H 84 Respiratory 20 16 Rate Blood Pressure 139/83 105/60 O2 Sat by Pulse 97 98 Oximetry - Reevaluation(s) Reevaluation #1: 05/14/22 01:53 Medical record is reviewed Symptoms are improved here in the emergency department Patient is informed of results and questions answered Patient in no distress Patient's lactic acid 2.5.. Patient afebrile, no tachycardia, patient mild elevation of her white blood cell count. However this seems to be chronic and recurrent for the patient. Reevaluation #2: 05/14/22 02:59 Patient states she feels much better. Patient able to hold down fluids without difficulty. Patient actually eating a sandwich when I rechecked her. Does not appear to be ill or toxic. Suspect patient's leukocytosis is reactive from the vomiting. There is no evidence of obstructive uropathy. Medical Decision Making - Medical Decision Making Patient presented temazepam with recurrent flank pain and recurrent ureterolithiasis. Patient did have a ureteral stone, 5 mm, proximal ureter. No evidence of obstructive uropathy. Going to cover the patient with antibiotics until urine cultures obtained. Patient's previous urine cultures have rarely cultured out any bacterial abnormality. Patient's urologist works out of [facility]. She was told to call as soon as possible for follow-up. Patient was doing well at discharge. Patient concurred with this treatment plan, patient states she is feeling much better and requested discharge. Patient was told to return to the ER for any signs or symptoms worsen. Told to return immediately if any other problems arise. All questions answered. Treatment plan discussed. Patient in agreement Every effort has been made to ensure accuracy of this dictation. However, due to the limitations of electronic medical records and dictation devices, errors in charting still occur. The case was discussed in detail with ED attending physician. Presentation, findings, treatment plan discussed in detail. Laydown Machine Operator Dr. Ellington - Lab Data Result diagrams: 05/14/22 00:34 05/14/22 00:34 Lab Results 05/14/22 05/14/22 05/14/22 Range/Units 00:34 00:34 00:34 WBC 13.9 H (3.8-10.6) k/uL RBC 5.10 (3.80-5.40) m/uL Hgb 15.6 (11.4-16.0) gm/dL Hct 43.2 (34.0-46.0) % MCV 84.8 (80.0-100.0) fL MCH 30.5 (25.0-35.0) pg MCHC 36.0 (31.0-37.0) g/dL RDW 12.1 (11.5-15.5) % Plt Count 286 (150-450) k/uL MPV 7.8 Neutrophils % 49 % Lymphocytes % 42 % Monocytes % 5 % Eosinophils % 2 % Basophils % 1 % Neutrophils # 6.9 (1.3-7.7) k/uL Lymphocytes # 5.7 H (1.0-4.8) k/uL Monocytes # 0.7 (0-1.0) k/uL Eosinophils # 0.3 (0-0.7) k/uL Basophils # 0.1 (0-0.2) k/uL VBG pH (7.31-7.41) VBG pCO2 (37-51) mmHg VBG HCO3 (24-28) mmol/L Sodium 134 L (137-145) mmol/L Potassium 4.2 (3.5-5.1) mmol/L Chloride 101 (98-107) mmol/L Carbon Dioxide 25 (22-30) mmol/L Anion Gap 8 mmol/L BUN 13 (7-17) mg/dL Creatinine 0.52 (0.52-1.04) mg/dL Est GFR (CKD-EPI)AfAm >90 (>60 ml/min/1.73 sqM) Est GFR (CKD-EPI)NonAf >90 (>60 ml/min/1.73 sqM) Glucose 185 H (74-99) mg/dL Plasma Lactic Acid Brant (0.7-2.0) mmol/L Calcium 9.7 (8.4-10.2) mg/dL Total Bilirubin 1.0 (0.2-1.3) mg/dL AST 37 H (14-36) U/L ALT 32 (4-34) U/L Alkaline Phosphatase 102 (38-126) U/L Total Protein 7.8 (6.3-8.2) g/dL Albumin 4.8 (3.5-5.0) g/dL Lipase 280 (23-300) U/L Urine Color Yellow Urine Appearance Clear (Clear) Urine pH 5.5 (5.0-8.0) Ur Specific Lee 1.040 H (1.001-1.035) Urine Protein Trace H (Negative) Urine Glucose (UA) 4+ H (Negative) Urine Ketones Negative (Negative) Urine Blood Large H (Negative) Urine Nitrite Negative (Negative) Urine Bilirubin Negative (Negative) Urine Urobilinogen <2.0 (<2.0) mg/dL Ur Leukocyte Esterase Negative (Negative) Urine RBC >182 H (0-5) /hpf Urine WBC 33 H (0-5) /hpf Ur Squamous Epith Cells 5 H (0-4) /hpf Urine Mucus Rare H (None) /hpf Acetone, Qual Positive (Negative) 05/14/22 05/14/22 Range/Units 00:34 01:26 WBC (3.8-10.6) k/uL RBC (3.80-5.40) m/uL Hgb (11.4-16.0) gm/dL Hct (34.0-46.0) % MCV (80.0-100.0) fL MCH (25.0-35.0) pg MCHC (31.0-37.0) g/dL RDW (11.5-15.5) % Plt Count (150-450) k/uL MPV Neutrophils % % Lymphocytes % % Monocytes % % Eosinophils % % Basophils % % Neutrophils # (1.3-7.7) k/uL Lymphocytes # (1.0-4.8) k/uL Monocytes # (0-1.0) k/uL Eosinophils # (0-0.7) k/uL Basophils # (0-0.2) k/uL VBG pH 7.33 (7.31-7.41) VBG pCO2 46 (37-51) mmHg VBG HCO3 24 (24-28) mmol/L Sodium (137-145) mmol/L Potassium (3.5-5.1) mmol/L Chloride (98-107) mmol/L Carbon Dioxide (22-30) mmol/L Anion Gap mmol/L BUN (7-17) mg/dL Creatinine (0.52-1.04) mg/dL Est GFR (CKD-EPI)AfAm (>60 ml/min/1.73 sqM) Est GFR (CKD-EPI)NonAf (>60 ml/min/1.73 sqM) Glucose (74-99) mg/dL Plasma Lactic Acid Brant 2.4 H* (0.7-2.0) mmol/L Calcium (8.4-10.2) mg/dL Total Bilirubin (0.2-1.3) mg/dL AST (14-36) U/L ALT (4-34) U/L Alkaline Phosphatase (38-126) U/L Total Protein (6.3-8.2) g/dL Albumin (3.5-5.0) g/dL Lipase (23-300) U/L Urine Color Urine Appearance (Clear) Urine pH (5.0-8.0) Ur Specific Lee (1.001-1.035) Urine Protein (Negative) Urine Glucose (UA) (Negative) Urine Ketones (Negative) Urine Blood (Negative) Urine Nitrite (Negative) Urine Bilirubin (Negative) Urine Urobilinogen (<2.0) mg/dL Ur Leukocyte Esterase (Negative) Urine RBC (0-5) /hpf Urine WBC (0-5) /hpf Ur Squamous Epith Cells (0-4) /hpf Urine Mucus (None) /hpf Acetone, Qual (Negative) - Radiology Data Radiology results: report reviewed, image reviewed Patient has a calculus in the proximal right ureter which has migrated from the kidney compared to last examination. No evidence of any significant hydronephrosis or hydroureter. Calculus is 5 mm in diameter, proximal right ureter. I did interpret this film myself. Concur with the radiology interpretation. Disposition Clinical Impression: Ureterolithiasis, Vomiting, Hyperglycemia due to type 2 diabetes mellitus, Recurrent kidney stones Disposition: HOME SELF-CARE Condition: Good Instructions (If sedation given, give patient instructions): Ureteral Stones (ED), Diabetic Hyperglycemia (ED) Additional Instructions: Follow-up with your regular physician as directed. Return to the ER immediately if any symptoms worsen, new symptoms arise, or any other problems develop.Call as soon as possible to schedule follow-up appointment with your urologist. Take antibiotics as directed unless otherwise instructed. Monitor your blood sugars closely. Is patient prescribed a controlled substance at d/c from ED?: No Referrals: Rajiv eSxton MD [Primary Care Provider] - 1-2 days Time of Disposition: 03:01
[2022-05-14 00:58] LABS: Basophils # (A) 0.1 k/uL (0-0.2); Basophils % (A) 1 %; Eosinophils # (A) 0.3 k/uL (0-0.7); Eosinophils % (A) 2 %; HCT 43.2 % (34.0-46.0); HGB 15.6 gm/dL (11.4-16.0); Lymphocytes # (A) 5.7 k/uL (1.0-4.8); Lymphocytes % (A) 42 %; MCH 30.5 pg (25.0-35.0); MCV 84.8 fL (80.0-100.0); Mean Platelet Volume 7.8; Monocytes # (A) 0.7 k/uL (0-1.0); Monocytes % (A) 5 %; Neutrophils # (A) 6.9 k/uL (1.3-7.7); Neutrophils % (A) 49 %; Platelet Count 286 k/uL (150-450); RDW 12.1 % (11.5-15.5); WBC 13.9 k/uL (3.8-10.6)
[2022-05-14 01:17] LABS: ALT 32 U/L (4-34); African American GFR (CKD) >90 (>60 ml/min/1.73 sqM); Anion Gap 8 mmol/L; Appearance,Urine Clear (Clear); Bilirubin,Urine Negative (Negative); Blood Urea Nitrogen 13 mg/dL (7-17); Blood,Urine Large (Negative); Calcium 9.7 mg/dL (8.4-10.2); Carbon Dioxide 25 mmol/L (22-30); Chloride 101 mmol/L (98-107); Color,Urine Yellow; Glucose 185 mg/dL (74-99); Glucose,Urine (UA) 4+ (Negative); Ketones,Urine Negative (Negative); Leukocyte Esterase,Urine Negative (Negative); Lipase 280 U/L (23-300); Mucus,Urine Rare /hpf; Nitrite,Urine Negative (Negative); Non-African American GFR(CKD) >90 (>60 ml/min/1.73 sqM); PH, Urine 5.5 (5.0-8.0); Protein,Urine Trace (Negative); RBC,Urine >182 /hpf (0-5); Sodium 134 mmol/L (137-145); Squamous Epithelial Cell,Urine 5 /hpf (0-4); Urobilinogen,Urine <2.0 mg/dL (<2.0); WBC,Urine 33 /hpf (0-5)
--- NOTE | 2022-05-14 01:27 | CT ---
EXAMINATION TYPE: CT abdomen pelvis wo con DATE OF EXAM: 05/14/2022 COMPARISON: 02/18/2022 HISTORY: abd pain CT DLP: 562.3 mGycm Automated exposure control for dose reduction was used. Images obtained from the diaphragm to the floor the pelvis without contrast. The lung bases are clear. No pleural effusion. Heart size is normal. No pericardial effusion. Liver spleen and stomach pancreas appear intact. There are clips from cholecystectomy. The bile ducts are not dilated. There is no adrenal mass. Kidneys have normal size. There is a 5 mm calculus in the proximal right ur eter without hydronephrosis. Left kidney shows no evidence of stone or obstruction. No retroperitoneal adenopathy. Appendix is pos terior and appears normal. The bladder distends smoothly. No inguinal hernia. No free fluid in the pe lvis. There are a few colonic diverticula. No diverticulitis. No mesenteric edema. No ascites or free air. No sign of a bowel obstruction. The lumbar vertebrae have normal alignment. No compression fracture the bony pelvis is intact. The hi p joints are intact. IMPRESSION: Calculus in the proximal right ureter has migrated from the right kidney compared to old exam. No pineda dence of any significant hydronephrosis or hydroureter. Normal appendix.
[2022-05-14] MEDS ORDERED: cefTRIAXone IN SWFI 1,000 MG/10 ML SYRINGE IVP STA (01:30)
[2022-05-14 01:45] LABS: Albumin 4.8 g/dL (3.5-5.0); Total Protein 7.8 g/dL (6.3-8.2)
[2022-05-14 01:46] LABS: AST 37 U/L (14-36); Alkaline Phosphatase 102 U/L (38-126); Potassium 4.2 mmol/L (3.5-5.1)
[2022-05-14] MEDS ORDERED: SODIUM CHLORIDE 0.9% 1,000 ML IV ONE (01:53)
[2022-05-14 02:12] LABS: VBG PH 7.33 (7.31-7.41)
[2022-05-14 02:24] VITALS: BP 105/60; PULSE 84; RESP 16
[2022-05-14] MEDS ORDERED: MORPHINE SULFATE 4 MG/ML SYRINGE IVP STA (02:31)
--- NOTE | 2022-05-14 02:45 | XR ---
EXAMINATION TYPE: XR chest 1V portable DATE OF EXAM: 05/14/2022 COMPARISON: 06/25/2017 HISTORY: Abdominal pain TECHNIQUE: Single view FINDINGS: Heart and mediastinum are normal. Lungs are clear. Diaphragm is normal. Bony thorax appears normal. IMPRESSION: Normal chest. No change.
== END 2022-05-14 03:15 | disposition home or self-care (01) ==
LOC: EC 23:25
DX: N20.1 Calculus of ureter (principal); R11.10 Vomiting, unspecified; E11.65 Type 2 diabetes mellitus with hyperglycemia; I12.9 Hypertensive chronic kidney disease with stage 1 through stage 4 chronic kidney disease, or unspecified chronic kidney disease; N18.9 Chronic kidney disease, unspecified; F17.200 Nicotine dependence, unspecified, uncomplicated; F41.9 Anxiety disorder, unspecified; F32.A Depression, unspecified; Z88.8 Allergy status to other drugs, medicaments and biological substances; Z88.1 Allergy status to other antibiotic agents; Z88.6 Allergy status to analgesic agent; Z91.041 Radiographic dye allergy status; Z91.018 Allergy to other foods; Z88.2 Allergy status to sulfonamides; Z88.0 Allergy status to penicillin; Z79.4 Long term (current) use of insulin
CPT/HCPCS: 36415; 80053; 82803; 82009; 83605; 83690; 85025; 81001; 87040; 87086; 71045; 74176; 99284; 96374; 96375 ×4; 96376; 96361 ×2; J2270; J2405; J0696; J1885

== ENCOUNTER 2022-05-19 01:14 | Emergency (ER) | payer BC, OTHER ==
[2022-05-19 01:19] VITALS: BP 112/75; PULSE 84; RESP 16; TEMP 97.4
[2022-05-19 02:07] LABS: Appearance,Urine Cloudy (Clear); Bacteria,Urine Moderate /hpf; Bilirubin,Urine Negative (Negative); Blood,Urine Large (Negative); Budding Yeast,Urine Few /hpf; Color,Urine Light Red; Glucose,Urine (UA) 4+ (Negative); Hyaline Casts,Urine 6 /lpf (0-2); Ketones,Urine Trace (Negative); Leukocyte Esterase,Urine Small (Negative); Mucus,Urine Many /hpf; Nitrite,Urine Negative (Negative); Protein,Urine 1+ (Negative); RBC,Urine >182 /hpf (0-5); Specific Gravity,Urine 1.032 (1.001-1.035); Squamous Epithelial Cell,Urine 31 /hpf (0-4); WBC,Urine 11 /hpf (0-5)
[2022-05-19] MEDS ORDERED: HYDROmorphone 1 MG/ML 1 ML SYRINGE IVP STA (02:56)
[2022-05-19] MEDS ORDERED: PROCHLORPERAZINE INJ 10 MG/2 ML VIAL IVP STA (02:56)
[2022-05-19] MEDS ORDERED: SODIUM CHLORIDE 0.9% 1,000 ML IV STA (02:56)
[2022-05-19] MEDS ORDERED: diphenhydrAMINE 50 MG/ML 1 ML VIAL IVP STA (02:56)
--- NOTE | 2022-05-19 02:57 | ED ---
Recheck HPI - General Chief Complaint: Urogenital Stated Complaint: kidney stone Time Seen by Provider: 05/19/22 02:35 Source: patient, RN notes reviewed, old records reviewed Mode of arrival: ambulatory Limitations: language barrier - History of Present Illness Initial Comments: This is a 47-year-old female to the emergency department for evaluation she is well-known to our facility for evaluation of right pain recurrent flank pain chronic flank pain. Patient is nausea vomiting swelling will take medications at home and is usually when she presents to the hospital MD Complaint: wound re-check, abnormal lab, medication refill request -: hour(s) Returns Today for: Called Because of Abnormal Lab/Test, persistent/worsening pain related to initial visit - Related Data Home Medications Medication Instructions Recorded Confirmed oxyCODONE-APAP 10-325MG [Percocet 1 tab PO QID PRN 08/29/17 01/06/22 10-325 mg] PARoxetine HCL [Paxil] 40 mg PO DAILY 03/12/18 01/06/22 PARoxetine [Paxil] 20 mg PO DAILY 06/04/18 01/06/22 Loratadine 10 mg PO DAILY 04/21/20 01/06/22 Dapagliflozin Propanediol [Farxiga] 10 mg PO DAILY 12/07/21 01/06/22 Dextroamphetamine/Amphetamine 20 mg PO BID 12/07/21 01/06/22 [Dextroamp-Amphetamin 20 mg Tab] Glimepiride [Amaryl] 4 mg PO DAILY 12/07/21 01/06/22 Multivitamins, Thera [Multivitamin 1 tab PO DAILY 12/07/21 01/06/22 (formulary)] SUMAtriptan succinate [Imitrex] 100 mg PO DAILY PRN 12/07/21 01/06/22 Semaglutide [Rybelsus] 14 mg PO DAILY 01/06/22 01/06/22 Previous Rx's Medication Instructions Recorded Ondansetron Odt [Zofran Odt] 4 mg PO Q8H PRN #12 tab 01/06/22 Ondansetron Odt [Zofran Odt] 4 mg PO Q8HR PRN #15 tab 01/12/22 clindamycin HCL [Cleocin] 300 mg PO Q6HR #40 cap 01/21/22 Cephalexin [Keflex] 500 mg PO Q6HR #40 cap 02/21/22 Promethazine Suppository 25 mg RECTAL TID PRN #15 supp 02/21/22 [Phenergan] Cephalexin [Keflex] 500 mg PO Q12HR 5 Days #10 cap 02/27/22 Fluconazole [Diflucan] 150 mg PO ONCE #1 tab 02/27/22 Cefdinir 300 mg PO Q12HR #14 cap 05/14/22 Baclofen 10 mg PO TID PRN #20 tab 05/24/22 Allergies Allergy/AdvReac Type Severity Reaction Status Date / Time bupropion HCl Allergy Rash/Hives Verified 05/24/22 01:36 [From Wellbutrin] divalproex sodium Allergy Unknown Verified 05/24/22 01:36 [From Depakote] fentanyl Allergy Swelling Verified 05/24/22 01:36 Iodinated Contrast Media Allergy Anaphylaxis Verified 05/24/22 01:36 [Iodinated Contrast Media - IV Dye] orange juice [[place]] Allergy Rash/Hives Verified 05/24/22 01:36 Sulfa (Sulfonamide Allergy Rash/Hives Verified 05/24/22 01:36 Antibiotics) Penicillins AdvReac Rash/Hives/Gi Verified 05/24/22 01:36 Upset Review of Systems ROS Statement: Those systems with pertinent positive or pertinent negative responses have been documented in the HPI. ROS Other: All systems not noted in ROS Statement are negative. 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 History of Any Multi-Drug Resistant Organisms: ESBL Date of last positivie culture/infection: 05/14/17 MDRO Source:: ESBL URINE, Past Surgical History: Bladder Surgery, Section, Cholecystectomy, Hysterectomy, Orthopedic Surgery, Tubal Ligation Additional Past Surgical History / Comment(s): R ovarian cystectomy, l aparoscopic surgery for L ovary that had attached to the bowel, D&C, numerous lithotripsies, nephroscopies, cystoscopies and stents to ureters-none in place at this time, L robotic pyeloplasty with post op infection around kidney which then required a picc line/later removed (pt states was not MRSA), L rotator cuff repair, L wrist tendon surgery, colonoscopy. Kidney stone removal. Past Anesthesia/Blood Transfusion Reactions: Family History of Problems w/ Anesthesia Additional Past Anesthesia/Blood Transfusion Reaction / Comment(s): dad-hard ti me waking up due to enzyme problems in liver Past Psychological History: ADD/ADHD, Anxiety, Bipolar, Depression, PTSD Smoking Status: Current every day smoker Past Alcohol Use History: None Reported Past Drug Use History: None Reported - Past Family History Brother(s) Family Medical History: Cancer Additional Family Medical History / Comment(s): testicular Father Family Medical History: Coronary Artery Disease (CAD), CVA/TIA, Diabetes Mellitus, Renal Disease Additional Family Medical History / Comment(s): GLAUCOMA,NEUROPATHY HAD TRIPLE CABG, at 56yrs from renal disease. Mother Family Medical History: Hyperlipidemia Additional Family Medical History / Comment(s): DDD, HAD 3 vessel CABG AGE 54. General Exam General appearance: alert, in no apparent distress Head exam: Present: atraumatic, normocephalic, normal inspection Eye exam: Present: normal appearance, PERRL, EOMI. Absent: scleral icterus, conjunctival injection, periorbital swelling ENT exam: Present: normal exam, mucous membranes moist Neck exam: Present: normal inspection. Absent: tenderness, meningismus, lymphadenopathy Respiratory exam: Present: normal lung sounds bilaterally. Absent: respiratory distress, wheezes, rales, rhonchi, stridor Cardiovascular Exam: Present: regular rate, normal rhythm, normal heart sounds. Absent: systolic murmur, diastolic murmur, rubs, gallop, clicks GI/Abdominal exam: Present: soft, normal bowel sounds. Absent: distended, tenderness, guarding, rebound, rigid Extremities exam: Present: normal inspection, full ROM, normal capillary refill. Absent: tenderness, pedal edema, joint swelling, calf tenderness Back exam: Present: normal inspection Neurological exam: Present: alert, oriented X3, CN II-XII intact Psychiatric exam: Present: normal affect, normal mood Skin exam: Present: warm, dry, intact, normal color. Absent: rash Course Vital Signs 05/19/22 01:16 Temperature 97.4 F L Pulse Rate 84 Respiratory 16 Rate Blood Pressure 112/75 O2 Sat by Pulse 100 Oximetry - Reevaluation(s) Reevaluation #1: Records reviewed Patient symptoms are improved here in the ER Patient informed results and questions answered Medical Decision Making - Medical Decision Making 47 female well-known to facility coming in for chronic flank pain. Pain is well-controlled patient is able to tolerate oral intake and can be discharged home - Lab Data Result diagrams: 05/19/22 03:21 05/19/22 03:21 Lab Results 05/19/22 05/19/22 05/19/22 Range/Units 01:35 03:21 03:21 WBC 12.4 H (3.8-10.6) k/uL RBC 4.84 (3.80-5.40) m/uL Hgb 14.4 (11.4-16.0) gm/dL Hct 41.2 (34.0-46.0) % MCV 85.0 (80.0-100.0) fL MCH 29.8 (25.0-35.0) pg MCHC 35.1 (31.0-37.0) g/dL RDW 12.2 (11.5-15.5) % Plt Count 292 (150-450) k/uL MPV 7.8 Neutrophils % 59 % Lymphocytes % 32 % Monocytes % 5 % Eosinophils % 2 % Basophils % 1 % Neutrophils # 7.3 (1.3-7.7) k/uL Lymphocytes # 3.9 (1.0-4.8) k/uL Monocytes # 0.6 (0-1.0) k/uL Eosinophils # 0.3 (0-0.7) k/uL Basophils # 0.1 (0-0.2) k/uL Sodium 134 L (137-145) mmol/L Potassium 3.8 (3.5-5.1) mmol/L Chloride 103 (98-107) mmol/L Carbon Dioxide 20 L (22-30) mmol/L Anion Gap 11 mmol/L BUN 14 (7-17) mg/dL Creatinine 0.60 (0.52-1.04) mg/dL Est GFR (CKD-EPI)AfAm >90 (>60 ml/min/1.73 sqM) Est GFR (CKD-EPI)NonAf >90 (>60 ml/min/1.73 sqM) Glucose 199 H (74-99) mg/dL Calcium 9.5 (8.4-10.2) mg/dL Total Bilirubin 0.7 (0.2-1.3) mg/dL AST 29 (14-36) U/L ALT 33 (4-34) U/L Alkaline Phosphatase 102 (38-126) U/L Total Protein 6.9 (6.3-8.2) g/dL Albumin 4.4 (3.5-5.0) g/dL Amylase 52 (30-110) U/L Lipase 248 (23-300) U/L Urine Color Light Red Urine Appearance Cloudy H (Clear) Urine pH 6.0 (5.0-8.0) Ur Specific [place] 1.032 (1.001-1.035) Urine Protein 1+ H (Negative) Urine Glucose (UA) 4+ H (Negative) Urine Ketones Trace H (Negative) Urine Blood Large H (Negative) Urine Nitrite Negative (Negative) Urine Bilirubin Negative (Negative) Urine Urobilinogen 2.0 (<2.0) mg/dL Ur Leukocyte Esterase Small H (Negative) Urine RBC >182 H (0-5) /hpf Urine WBC 11 H (0-5) /hpf Ur Squamous Epith Cells 31 H (0-4) /hpf Urine Bacteria Moderate H (None) /hpf Hyaline Casts 6 H (0-2) /lpf Urine Mucus Many H (None) /hpf Urine Yeast ([place]) Few H (None) /hpf Disposition Clinical Impression: Intractable pain Disposition: HOME SELF-CARE Condition: Good Instructions (If sedation given, give patient instructions): Chronic Pain (ED) Is patient prescribed a controlled substance at d/c from ED?: No Referrals: None,Stated [REFERRING] - 1-2 days Time of Disposition: 03:45
[2022-05-19 03:36] LABS: Basophils # (A) 0.1 k/uL (0-0.2); Basophils % (A) 1 %; Eosinophils # (A) 0.3 k/uL (0-0.7); Eosinophils % (A) 2 %; HCT 41.2 % (34.0-46.0); HGB 14.4 gm/dL (11.4-16.0); Lymphocytes # (A) 3.9 k/uL (1.0-4.8); Lymphocytes % (A) 32 %; MCH 29.8 pg (25.0-35.0); MCHC 35.1 g/dL (31.0-37.0); Mean Platelet Volume 7.8; Monocytes # (A) 0.6 k/uL (0-1.0); Monocytes % (A) 5 %; Neutrophils # (A) 7.3 k/uL (1.3-7.7); Neutrophils % (A) 59 %; Platelet Count 292 k/uL (150-450); RBC 4.84 m/uL (3.80-5.40); RDW 12.2 % (11.5-15.5); WBC 12.4 k/uL (3.8-10.6)
[2022-05-19 03:55] LABS: ALT 33 U/L (4-34); AST 29 U/L (14-36); African American GFR (CKD) >90 (>60 ml/min/1.73 sqM); Albumin 4.4 g/dL (3.5-5.0); Alkaline Phosphatase 102 U/L (38-126); Amylase 52 U/L (30-110); Anion Gap 11 mmol/L; Blood Urea Nitrogen 14 mg/dL (7-17); Calcium 9.5 mg/dL (8.4-10.2); Carbon Dioxide 20 mmol/L (22-30); Chloride 103 mmol/L (98-107); Glucose 199 mg/dL (74-99); Lipase 248 U/L (23-300); Non-African American GFR(CKD) >90 (>60 ml/min/1.73 sqM); Potassium 3.8 mmol/L (3.5-5.1); Sodium 134 mmol/L (137-145); Total Bilirubin 0.7 mg/dL (0.2-1.3); Total Protein 6.9 g/dL (6.3-8.2)
== END 2022-05-19 04:27 | disposition home or self-care (01) ==
LOC: EC 01:14
DX: R10.9 Unspecified abdominal pain (principal); F17.200 Nicotine dependence, unspecified, uncomplicated; E11.9 Type 2 diabetes mellitus without complications; I10 Essential (primary) hypertension; Z88.8 Allergy status to other drugs, medicaments and biological substances; Z90.49 Acquired absence of other specified parts of digestive tract; Z88.5 Allergy status to narcotic agent; Z91.041 Radiographic dye allergy status; Z88.2 Allergy status to sulfonamides; Z88.0 Allergy status to penicillin; Z91.018 Allergy to other foods; Z79.84 Long term (current) use of oral hypoglycemic drugs; Z79.899 Other long term (current) drug therapy
CPT/HCPCS: 99284; 96374; 96375; 96361; 36415; 93005; 80053; 82150; 83690; 85025; 81001; 87086; J1200; J0780; J1170

== ENCOUNTER 2022-05-21 00:59 | Emergency (ER) | payer BC, OTHER ==
[2022-05-21 01:27] VITALS: TEMP 98.4
[2022-05-21] MEDS ORDERED: PROCHLORPERAZINE INJ 10 MG/2 ML VIAL IVP STA (02:13)
[2022-05-21] MEDS ORDERED: HYDROmorphone 1 MG/ML 1 ML SYRINGE IVP STA (02:13)
[2022-05-21] MEDS ORDERED: SODIUM CHLORIDE 0.9% 1,000 ML IV STA (02:13)
[2022-05-21] MEDS ORDERED: diphenhydrAMINE 50 MG/ML 1 ML VIAL IVP STA (02:13)
--- NOTE | 2022-05-21 02:13 | ED ---
Recheck HPI - General Chief Complaint: Abdominal Pain Stated Complaint: Kidney Stone Time Seen by Provider: 05/21/22 02:11 Source: patient, RN notes reviewed, old records reviewed Mode of arrival: ambulatory Limitations: no limitations - History of Present Illness Initial Comments: This is a 46-year-old female DF for evaluation patient Dese for evaluation regards to not feeling well persistent nausea vomiting unable to take her keep down pain medications at home resulting in severe worsening of symptoms. No other complaints. Patient has significant history of these similar symptoms MD Complaint: medication refill request -: days(s) Returns Today for: persistent/worsening pain related to initial visit Symptoms Since Prior Visit: worsening pain Associated Symptoms: abdominal pain Treatments Prior to Arrival: Given Pain Meds on - Related Data Home Medications Medication Instructions Recorded Confirmed oxyCODONE-APAP 10-325MG [Percocet 1 tab PO QID PRN 08/29/17 01/06/22 10-325 mg] PARoxetine HCL [Paxil] 40 mg PO DAILY 03/12/18 01/06/22 PARoxetine [Paxil] 20 mg PO DAILY 06/04/18 01/06/22 Loratadine 10 mg PO DAILY 04/21/20 01/06/22 Dapagliflozin Propanediol [Farxiga] 10 mg PO DAILY 12/07/21 01/06/22 Dextroamphetamine/Amphetamine 20 mg PO BID 12/07/21 01/06/22 [Dextroamp-Amphetamin 20 mg Tab] Glimepiride [Amaryl] 4 mg PO DAILY 12/07/21 01/06/22 Multivitamins, Thera [Multivitamin 1 tab PO DAILY 12/07/21 01/06/22 (formulary)] SUMAtriptan succinate [Imitrex] 100 mg PO DAILY PRN 12/07/21 01/06/22 Semaglutide [Rybelsus] 14 mg PO DAILY 01/06/22 01/06/22 Previous Rx's Medication Instructions Recorded Ondansetron Odt [Zofran Odt] 4 mg PO Q8H PRN #12 tab 01/06/22 Ondansetron Odt [Zofran Odt] 4 mg PO Q8HR PRN #15 tab 01/12/22 clindamycin HCL [Cleocin] 300 mg PO Q6HR #40 cap 01/21/22 Cephalexin [Keflex] 500 mg PO Q6HR #40 cap 02/21/22 Promethazine Suppository 25 mg RECTAL TID PRN #15 supp 02/21/22 [Phenergan] Cephalexin [Keflex] 500 mg PO Q12HR 5 Days #10 cap 02/27/22 Fluconazole [Diflucan] 150 mg PO ONCE #1 tab 02/27/22 Cefdinir 300 mg PO Q12HR #14 cap 05/14/22 Allergies Allergy/AdvReac Type Severity Reaction Status Date / Time bupropion HCl Allergy Rash/Hives Verified 05/21/22 01:25 [From Wellbutrin] divalproex sodium Allergy Unknown Verified 05/21/22 01:25 [From Depakote] fentanyl Allergy Swelling Verified 05/21/22 01:25 Iodinated Contrast Media Allergy Anaphylaxis Verified 05/21/22 01:25 [Iodinated Contrast Media - IV Dye] orange juice [[place]] Allergy Rash/Hives Verified 05/21/22 01:25 Sulfa (Sulfonamide Allergy Rash/Hives Verified 05/21/22 01:25 Antibiotics) Penicillins AdvReac Rash/Hives/Gi Verified 05/21/22 01:25 Upset Review of Systems ROS Statement: Those systems with pertinent positive or pertinent negative responses have been documented in the HPI. ROS Other: All systems not noted in ROS Statement are negative. 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 History of Any Multi-Drug Resistant Organisms: ESBL Date of last positivie culture/infection: 05/14/17 MDRO Source:: ESBL URINE, Past Surgical History: Bladder Surgery, Section, Cholecystectomy, Hysterectomy, Orthopedic Surgery, Tubal Ligation Additional Past Surgical History / Comment(s): R ovarian cystectomy, laparoscopic surgery for L ovary that had attached to the bowel, D&C, numerous lithotripsies, nephroscopies, cystoscopies and stents to ureters-none in place at this time, L robotic pyeloplasty with post op infection around kidney which then required a picc line/later removed (pt states was not MRSA), L rotator cuff repair, L wrist tendon surgery, colonoscopy. Kidney stone removal. Past Anesthesia/Blood Transfusion Reactions: Family History of Problems w/ Anesthesia Additional Past Anesthesia/Blood Transfusion Reaction / Comment(s): dad-hard time waking up due to enzyme problems in liver Past Psychological History: ADD/ADHD, Anxiety, Bipolar, Depression, PTSD Smoking Status: Current every day smoker Past Alcohol Use History: None Reported Past Drug Use History: None Reported - Past Family History Brother(s) Family Medical History: Cancer Additional Family Medical History / Comment(s): testicular Father Family Medical History: Coronary Artery Disease (CAD), CVA/TIA, Diabetes Mellitus, Renal Disease Additional Family Medical History / Comment(s): GLAUCOMA,NEUROPATHY HAD TRIPLE CABG, at 56yrs from renal disease. Mother Family Medical History: Hyperlipidemia Additional Family Medical History / Comment(s): DDD, HAD 3 vessel CABG AGE 54. General Exam Limitations: no limitations General appearance: alert, in no apparent distress Head exam: Present: atraumatic, normocephalic, normal inspection Eye exam: Present: normal appearance, PERRL, EOMI. Absent: scleral icterus, conjunctival injection, periorbital swelling ENT exam: Present: normal exam, mucous membranes moist Neck exam: Present: normal inspection. Absent: tenderness, meningismus, lymphadenopathy Respiratory exam: Present: normal lung sounds bilaterally. Absent: respiratory distress, wheezes, rales, rhonchi, stridor Cardiovascular Exam: Present: regular rate, normal rhythm, normal heart sounds. Absent: systolic murmur, diastolic murmur, rubs, gallop, clicks GI/Abdominal exam: Present: soft, normal bowel sounds. Absent: distended, tenderness, guarding, rebound, rigid Extremities exam: Present: normal inspection, full ROM, normal capillary refill. Absent: tenderness, pedal edema, joint swelling, calf tenderness Back exam: Present: normal inspection Neurological exam: Present: alert, oriented X3, CN II-XII intact Psychiatric exam: Present: normal affect, normal mood Skin exam: Present: warm, dry, intact, normal color. Absent: rash Course Vital Signs 05/21/22 01:25 Temperature 98.4 F Pulse Rate 98 Respiratory 16 Rate Blood Pressure 130/92 O2 Sat by Pulse 99 Oximetry - Reevaluation(s) Reevaluation #1: 05/21/22 03:37 Medical record is reviewed Reevaluation #2: 05/21/22 03:37 Patient symptoms are improved Reevaluation #3: 05/21/22 03:37 Patient informed of results and questions answered Medical Decision Making - Medical Decision Making 46 female to the emergency department for evaluation patient presents today for evaluation of abdominal pain. Not feeling well. Persistent nausea vomiting intractable pain. Symptoms are improving he can be discharged home - Lab Data Result diagrams: 05/21/22 02:35 05/21/22 02:35 Lab Results 05/21/22 05/21/22 05/21/22 Range/Units 02:24 02:35 02:35 WBC 11.7 H (3.8-10.6) k/uL RBC 4.92 (3.80-5.40) m/uL Hgb 15.1 (11.4-16.0) gm/dL Hct 42.5 (34.0-46.0) % MCV 86.3 (80.0-100.0) fL MCH 30.6 (25.0-35.0) pg MCHC 35.5 (31.0-37.0) g/dL RDW 12.6 (11.5-15.5) % Plt Count 279 (150-450) k/uL MPV 8.1 Neutrophils % 49 % Lymphocytes % 41 % Monocytes % 5 % Eosinophils % 2 % Basophils % 1 % Neutrophils # 5.7 (1.3-7.7) k/uL Lymphocytes # 4.9 H (1.0-4.8) k/uL Monocytes # 0.6 (0-1.0) k/uL Eosinophils # 0.3 (0-0.7) k/uL Basophils # 0.1 (0-0.2) k/uL Sodium 136 L (137-145) mmol/L Potassium 3.7 (3.5-5.1) mmol/L Chloride 105 (98-107) mmol/L Carbon Dioxide 22 (22-30) mmol/L Anion Gap 9 mmol/L BUN 12 (7-17) mg/dL Creatinine 0.51 L (0.52-1.04) mg/dL Est GFR (CKD-EPI)AfAm >90 (>60 ml/min/1.73 sqM) Est GFR (CKD-EPI)NonAf >90 (>60 ml/min/1.73 sqM) Glucose 148 H (74-99) mg/dL Calcium 9.5 (8.4-10.2) mg/dL Total Bilirubin 0.9 (0.2-1.3) mg/dL AST 37 H (14-36) U/L ALT 39 H (4-34) U/L Alkaline Phosphatase 114 (38-126) U/L Total Protein 7.3 (6.3-8.2) g/dL Albumin 4.7 (3.5-5.0) g/dL Amylase 52 (30-110) U/L Lipase 174 (23-300) U/L Urine Color Yellow Urine Appearance Cloudy H (Clear) Urine pH 6.0 (5.0-8.0) Ur Specific [place] 1.030 (1.001-1.035) Urine Protein 1+ H (Negative) Urine Glucose (UA) Trace H (Negative) Urine Ketones Trace H (Negative) Urine Blood Large H (Negative) Urine Nitrite Negative (Negative) Urine Bilirubin Negative (Negative) Urine Urobilinogen 2.0 (<2.0) mg/dL Ur Leukocyte Esterase Small H (Negative) Urine RBC >182 H (0-5) /hpf Urine WBC 16 H (0-5) /hpf Ur Squamous Epith Cells 7 H (0-4) /hpf Urine Bacteria Rare H (None) /hpf Hyaline Casts 3 H (0-2) /lpf Urine Mucus Many H (None) /hpf Disposition Clinical Impression: Flank pain, Left flank pain, chronic, Abdominal pain Disposition: HOME SELF-CARE Condition: Good Instructions (If sedation given, give patient instructions): Abdominal Pain (ED) Is patient prescribed a controlled substance at d/c from ED?: No Referrals: Rajiv Sexton MD [Primary Care Provider] - 1-2 days Time of Disposition: 03:40
[2022-05-21 03:00] LABS: Basophils # (A) 0.1 k/uL (0-0.2); Basophils % (A) 1 %; Eosinophils # (A) 0.3 k/uL (0-0.7); Eosinophils % (A) 2 %; HCT 42.5 % (34.0-46.0); HGB 15.1 gm/dL (11.4-16.0); Lymphocytes # (A) 4.9 k/uL (1.0-4.8); Lymphocytes % (A) 41 %; MCH 30.6 pg (25.0-35.0); MCHC 35.5 g/dL (31.0-37.0); MCV 86.3 fL (80.0-100.0); Mean Platelet Volume 8.1; Monocytes # (A) 0.6 k/uL (0-1.0); Monocytes % (A) 5 %; Neutrophils # (A) 5.7 k/uL (1.3-7.7); Neutrophils % (A) 49 %; Platelet Count 279 k/uL (150-450); RBC 4.92 m/uL (3.80-5.40); RDW 12.6 % (11.5-15.5); WBC 11.7 k/uL (3.8-10.6)
[2022-05-21 03:09] LABS: Appearance,Urine Cloudy (Clear); Bacteria,Urine Rare /hpf; Bilirubin,Urine Negative (Negative); Blood,Urine Large (Negative); Color,Urine Yellow; Glucose,Urine (UA) Trace (Negative); Hyaline Casts,Urine 3 /lpf (0-2); Ketones,Urine Trace (Negative); Leukocyte Esterase,Urine Small (Negative); Mucus,Urine Many /hpf; Nitrite,Urine Negative (Negative); Protein,Urine 1+ (Negative); RBC,Urine >182 /hpf (0-5); Squamous Epithelial Cell,Urine 7 /hpf (0-4); WBC,Urine 16 /hpf (0-5)
[2022-05-21 03:16] LABS: ALT 39 U/L (4-34); AST 37 U/L (14-36); African American GFR (CKD) >90 (>60 ml/min/1.73 sqM); Albumin 4.7 g/dL (3.5-5.0); Alkaline Phosphatase 114 U/L (38-126); Amylase 52 U/L (30-110); Anion Gap 9 mmol/L; Blood Urea Nitrogen 12 mg/dL (7-17); Calcium 9.5 mg/dL (8.4-10.2); Carbon Dioxide 22 mmol/L (22-30); Chloride 105 mmol/L (98-107); Glucose 148 mg/dL (74-99); Lipase 174 U/L (23-300); Non-African American GFR(CKD) >90 (>60 ml/min/1.73 sqM); Potassium 3.7 mmol/L (3.5-5.1); Sodium 136 mmol/L (137-145); Total Bilirubin 0.9 mg/dL (0.2-1.3); Total Protein 7.3 g/dL (6.3-8.2)
[2022-05-21 03:54] VITALS: BP 108/73; PULSE 73; RESP 18
== END 2022-05-21 03:53 | disposition home or self-care (01) ==
LOC: EC 00:59
DX: G89.4 Chronic pain syndrome (principal); R10.32 Left lower quadrant pain; E11.9 Type 2 diabetes mellitus without complications; I12.9 Hypertensive chronic kidney disease with stage 1 through stage 4 chronic kidney disease, or unspecified chronic kidney disease; N18.9 Chronic kidney disease, unspecified; F41.9 Anxiety disorder, unspecified; F31.9 Bipolar disorder, unspecified; Z90.49 Acquired absence of other specified parts of digestive tract; F17.200 Nicotine dependence, unspecified, uncomplicated; Z88.0 Allergy status to penicillin; Z88.2 Allergy status to sulfonamides; Z91.041 Radiographic dye allergy status; Z91.018 Allergy to other foods; Z88.8 Allergy status to other drugs, medicaments and biological substances
CPT/HCPCS: 36415; 80053; 82150; 83690; 85025; 81001; 99284; 96374; 96375 ×2; 96361; J1200; J0780; J1170

== ENCOUNTER 2022-05-24 01:28 | Emergency (ER) | payer BC, OTHER ==
[2022-05-24 01:36] VITALS: BP 142/90; PULSE 83; RESP 16; TEMP 98.1
--- NOTE | 2022-05-24 02:59 | ED ---
Chest Pain HPI - General Chief Complaint: Chest Pain Stated Complaint: Chest Pain Time Seen by Provider: 05/24/22 02:46 Source: patient, RN notes reviewed Mode of arrival: wheelchair - History of Present Illness Initial Comments: This is a pleasant 46-year-old female with a history of multiple medical issues to include poorly controlled diabetes mellitus type 2. Sense again for discomfort in her left upper chest which has been recurrent since earlier this evening. Patient also states she had similar symptomatology on May 19 and was seen here. Patient had negative workup at that time. Patient states the pain is sharp and shooting in nature, comes and goes. No relation to activity. States it does seem to be worse when she coughs. Patient denied any edema. Den ies any recent surgeries. Denies any hemoptysis. No recent immobilization. Patient is not on any hormone replacement therapy. Patient has had a previous hysterectomy. No headache, no fever or chills, no changes in vision or hearing, no sore throat or difficulty with speech, no neck pain, no shortness of breath, no abdominal pain, no nausea or vomiting, no changes in urination or bowel movements, no numbness or tingling, no extremity pain, no skin rashes or lesions. Past medical, surgical, social, and family history reviewed. MD Complaint: chest pain - Related Data Home Medications Medication Instructions Recorded Confirmed oxyCODONE-APAP 10-325MG [Percocet 1 tab PO QID PRN 08/29/17 01/06/22 10-325 mg] PARoxetine HCL [Paxil] 40 mg PO DAILY 03/12/18 01/06/22 PARoxetine [Paxil] 20 mg PO DAILY 06/04/18 01/06/22 Loratadine 10 mg PO DAILY 04/21/20 01/06/22 Dapagliflozin Propanediol [Farxiga] 10 mg PO DAILY 12/07/21 01/06/22 Dextroamphetamine/Amphetamine 20 mg PO BID 12/07/21 01/06/22 [Dextroamp-Amphetamin 20 mg Tab] Glimepiride [Amaryl] 4 mg PO DAILY 12/07/21 01/06/22 Multivitamins, Thera [Multivitamin 1 tab PO DAILY 12/07/21 01/06/22 (formulary)] SUMAtriptan succinate [Imitrex] 100 mg PO DAILY PRN 12/07/21 01/06/22 Semaglutide [Rybelsus] 14 mg PO DAILY 01/06/22 01/06/22 Previous Rx's Medication Instructions Recorded Ondansetron Odt [Zofran Odt] 4 mg PO Q8H PRN #12 tab 01/06/22 Ondansetron Odt [Zofran Odt] 4 mg PO Q8HR PRN #15 tab 01/12/22 clindamycin HCL [Cleocin] 300 mg PO Q6HR #40 cap 01/21/22 Cephalexin [Keflex] 500 mg PO Q6HR #40 cap 02/21/22 Promethazine Suppository 25 mg RECTAL TID PRN #15 supp 02/21/22 [Phenergan] Cephalexin [Keflex] 500 mg PO Q12HR 5 Days #10 cap 02/27/22 Fluconazole [Diflucan] 150 mg PO ONCE #1 tab 02/27/22 Cefdinir 300 mg PO Q12HR #14 cap 05/14/22 Baclofen 10 mg PO TID PRN #20 tab 05/24/22 Allergies Allergy/AdvReac Type Severity Reaction Status Date / Time bupropion HCl Allergy Rash/Hives Verified 05/24/22 01:36 [From Wellbutrin] divalproex sodium Allergy Unknown Verified 05/24/22 01:36 [From Depakote] fentanyl Allergy Swelling Verified 05/24/22 01:36 Iodinated Contrast Media Allergy Anaphylaxis Verified 05/24/22 01:36 [Iodinated Contrast Media - IV Dye] orange juice [[place]] Allergy Rash/Hives Verified 05/24/22 01:36 Sulfa (Sulfonamide Allergy Rash/Hives Verified 05/24/22 01:36 Antibiotics) Penicillins AdvReac Rash/Hives/Gi Verified 05/24/22 01:36 Upset Review of Systems ROS Statement: Those systems with pertinent positive or pertinent negative responses have been documented in the HPI. ROS Other: All systems not noted in ROS Statement are negative. 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 History of Any Multi-Drug Resistant Organisms: ESBL Date of last positivie culture/infection: 05/14/17 MDRO Source:: ESBL URINE, Past Surgical History: Bladder Surgery, Section, Cholecystectomy, Hysterectomy, Orthopedic Surgery, Tubal Ligation Additional Past Surgical History / Comment(s): R ovarian cystectomy, laparoscopic surgery for L ovary that had attached to the bowel, D&C, numerous lithotripsies, nephroscopies, cystoscopies and stents to ureters-none in place at this time, L robotic pyeloplasty with post op infection around kidney which then required a picc line/later removed (pt states was not MRSA), L rotator cuff repair, L wrist tendon surgery, colonoscopy. Kidney stone removal. Past Anesthesia/Blood Transfusion Reactions: Family History of Problems w/ Anesthesia Additional Past Anesthesia/Blood Transfusion Reaction / Comment(s): dad-hard time waking up due to enzyme problems in liver Past Psychological History: ADD/ADHD, Anxiety, Bipolar, Depression, PTSD Smoking Status: Current every day smoker Past Alcohol Use History: None Reported Past Drug Use History: None Reported - Past Family History Brother(s) Family Medical History: Cancer Additional Family Medical History / Comment(s): testicular Father Family Medical History: Coronary Artery Disease (CAD), CVA/TIA, Diabetes Mellitus, Renal Disease Additional Family Medical History / Comment(s): GLAUCOMA,NEUROPATHY HAD TRIPLE CABG, at 56yrs from renal disease. Mother Family Medical History: Hyperlipidemia Additional Family Medical History / Comment(s): DDD, HAD 3 vessel CABG AGE 54. General Exam - General Exam Comments Initial Comments: Vital signs stable, patient afebrile, patient does not appear to be in any significant distress. General appearance: alert, in no apparent distress Head exam: Present: atraumatic, normocephalic, normal inspection Eye exam: Present: normal appearance, PERRL, EOMI. Absent: scleral icterus, conjunctival injection, periorbital swelling ENT exam: Present: normal exam, mucous membranes moist Neck exam: Present: normal inspection. Absent: tenderness, meningismus, lymphadenopathy Respiratory exam: Present: normal lung sounds bilaterally. Absent: respiratory distress, wheezes, rales, rhonchi, stridor Cardiovascular Exam: Present: regular rate, normal rhythm, normal heart sounds. Absent: systolic murmur, diastolic murmur, rubs, gallop, clicks GI/Abdominal exam: Present: soft, normal bowel sounds. Absent: distended, tenderness, guarding, rebound, rigid Extremities exam: Present: normal inspection, full ROM, normal capillary refill. Absent: tenderness, pedal edema, joint swelling, calf tenderness Back exam: Present: normal inspection Neurological exam: Present: alert, oriented X3, CN II-XII intact Psychiatric exam: Present: normal affect, normal mood Skin exam: Present: warm, dry, intact, normal color. Absent: rash Course Vital Signs 05/24/22 01:34 Temperature 98.1 F Pulse Rate 83 Respiratory 16 Rate Blood Pressure 142/90 O2 Sat by Pulse 100 Oximetry - Reevaluation(s) Reevaluation #1: 05/24/22 04:12 Medical record is reviewed Symptoms are improved here in the emergency department Patient is informed of results and questions answered Patient in no distress Chest [facility] chest x-ray read by me reveals no acute pathology. No pneumothorax, no infiltrate, no cardiomegaly, no osseous lesion. This was interpreted by me. I did review the radiology interpretation Patient has atypical and intermittent left upper chest pain is been going on for a few days. Patient was seen here about 5 days with it. Apparently it resolved for a few days now has recurred. Unrelated to activity. Exacerbated by coughing. Patient is PERC 0. Patient reevaluated prior to discharge and is in no significant distress. Head and I believe this pain is cardiac in nature. It is fleeting, seems to be associated with the chest wall. There is no rash or lesion. Patient has had it intermittently for several days. Is unlikely to be shingles. We'll treat with conservatively with musculoskeletal agents. Patient was told to return to the ER for any signs or symptoms worsen. Told to return immediately if any other problems arise. All questions answered. Treatment plan discussed. Patient in agreement Every effort has been made to ensure accuracy of this dictation. However, due to the limitations of electronic medical records and dictation devices, errors in charting still occur. The case was discussed in detail with ED attending physician. Presentation, findings, treatment plan discussed in detail. Champagne Maker Dr. Nelson Disposition Clinical Impression: Atypical chest pain Disposition: HOME SELF-CARE Condition: Good Instructions (If sedation given, give patient instructions): Chest Pain (ED) Additional Instructions: Follow-up with your regular physician as directed. Return to the ER immediately if any symptoms worsen, new symptoms arise, or any other problems develop. Hold the Flexeril taking the new medication Prescriptions: Baclofen 10 mg PO TID PRN #20 tab PRN Reason: Pain Is patient prescribed a controlled substance at d/c from ED?: No Referrals: Rajiv Sexton MD [Primary Care Provider] - 1-2 days Time of Disposition: 04:51
[2022-05-24 03:56] LABS: Basophils # (A) 0.1 k/uL (0-0.2); Basophils % (A) 1 %; Eosinophils # (A) 0.3 k/uL (0-0.7); Eosinophils % (A) 3 %; HCT 39.1 % (34.0-46.0); HGB 13.8 gm/dL (11.4-16.0); Lymphocytes # (A) 4.2 k/uL (1.0-4.8); Lymphocytes % (A) 41 %; MCH 30.1 pg (25.0-35.0); MCHC 35.3 g/dL (31.0-37.0); MCV 85.3 fL (80.0-100.0); Mean Platelet Volume 7.7; Monocytes # (A) 0.5 k/uL (0-1.0); Monocytes % (A) 5 %; Neutrophils # (A) 5.1 k/uL (1.3-7.7); Neutrophils % (A) 49 %; Platelet Count 294 k/uL (150-450); RBC 4.59 m/uL (3.80-5.40); RDW 12.1 % (11.5-15.5); WBC 10.3 k/uL (3.8-10.6)
--- NOTE | 2022-05-24 04:05 | XR ---
EXAMINATION TYPE: XR chest 2V DATE OF EXAM: 05/24/2022 COMPARISON: 05/14/2022 HISTORY: Chest pain TECHNIQUE: FINDINGS: Heart is normal. Lungs are clear. Diaphragm is normal. Bony thorax appears normal. IMPRESSION: Normal chest. No change.
[2022-05-24 04:12] LABS: African American GFR (CKD) >90 (>60 ml/min/1.73 sqM); Anion Gap 5 mmol/L; Blood Urea Nitrogen 9 mg/dL (7-17); Calcium 9.4 mg/dL (8.4-10.2); Carbon Dioxide 24 mmol/L (22-30); Chloride 107 mmol/L (98-107); Glucose 170 mg/dL (74-99); Non-African American GFR(CKD) >90 (>60 ml/min/1.73 sqM); Sodium 136 mmol/L (137-145)
[2022-05-24 04:28] LABS: Magnesium 1.6 mg/dL (1.6-2.3); Potassium 4.8 mmol/L (3.5-5.1)
[2022-05-24] MEDS ORDERED: BACLOFEN 10 MG TAB PO STA (04:53)
== END 2022-05-24 05:08 | disposition home or self-care (01) ==
LOC: EC 01:28
DX: R07.89 Other chest pain (principal); I12.9 Hypertensive chronic kidney disease with stage 1 through stage 4 chronic kidney disease, or unspecified chronic kidney disease; E11.22 Type 2 diabetes mellitus with diabetic chronic kidney disease; N18.9 Chronic kidney disease, unspecified; F90.9 Attention-deficit hyperactivity disorder, unspecified type; F31.9 Bipolar disorder, unspecified; F17.200 Nicotine dependence, unspecified, uncomplicated; Z79.84 Long term (current) use of oral hypoglycemic drugs; Z79.899 Other long term (current) drug therapy; Z79.4 Long term (current) use of insulin; Z88.8 Allergy status to other drugs, medicaments and biological substances; Z88.1 Allergy status to other antibiotic agents; Z91.041 Radiographic dye allergy status; Z91.018 Allergy to other foods; Z88.0 Allergy status to penicillin; Z88.2 Allergy status to sulfonamides
CPT/HCPCS: 36415; 71046; 80048; 83735; 84484; 85025; 99285

== ENCOUNTER 2022-06-05 00:51 | Emergency (ER) | payer BC, OTHER ==
[2022-06-05 01:08] VITALS: BP 119/77; PULSE 109; RESP 16; TEMP 97.4
[2022-06-05] MEDS ORDERED: SODIUM CHLORIDE 0.9% 1,000 ML IV STA (01:48)
[2022-06-05] MEDS ORDERED: MORPHINE SULFATE 4 MG/ML SYRINGE IV STA (01:49)
[2022-06-05] MEDS ORDERED: ONDANSETRON 4 MG/2 ML VIAL IVP STA (01:49)
[2022-06-05 01:51] LABS: Appearance,Urine Cloudy (Clear); Bacteria,Urine Rare /hpf; Bilirubin,Urine Negative (Negative); Blood,Urine Large (Negative); Color,Urine Red; Glucose,Urine (UA) Negative (Negative); Ketones,Urine 1+ (Negative); Leukocyte Esterase,Urine Small (Negative); Mucus,Urine Many /hpf; Nitrite,Urine Negative (Negative); PH, Urine 5.5 (5.0-8.0); Protein,Urine 1+ (Negative); RBC,Urine >182 /hpf (0-5); Specific Gravity,Urine 1.036 (1.001-1.035); Squamous Epithelial Cell,Urine 14 /hpf (0-4); WBC,Urine 9 /hpf (0-5)
--- NOTE | 2022-06-05 01:51 | ED ---
Abdominal Pain HPI - General Chief Complaint: Abdominal Pain Stated Complaint: UTI Time Seen by Provider: 06/05/22 01:36 Source: patient, RN notes reviewed Mode of arrival: ambulatory Limitations: no limitations - History of Present Illness Initial Comments: This is a pleasant 47-year-old female who is well-known to this emergency department. Patient has a known history of ureteral lithiasis and recurrent kidney stones. Patient presents with right flank pain which worsened on Sunday. Patient has an appointment with her urologist this week. Patient states she has had some increased urinary frequency and vomiting. Denying any fever. No headache, no fever or chills, no changes in vision or hearing, no sore throat or difficulty with speech, no neck pain, no chest pain or shortness of breath, no changes in bowel movements, no numbness or tingling, no extremity pain, no skin rashes or lesions. Past medical, surgical, social, and family history reviewed. MD Complaint: flank pain - Related Data Home Medications Medication Instructions Recorded Confirmed oxyCODONE-APAP 10-325MG [Percocet 1 tab PO QID PRN 08/29/17 01/06/22 10-325 mg] PARoxetine HCL [Paxil] 40 mg PO DAILY 03/12/18 01/06/22 PARoxetine [Paxil] 20 mg PO DAILY 06/04/18 01/06/22 Loratadine 10 mg PO DAILY 04/21/20 01/06/22 Dapagliflozin Propanediol [Farxiga] 10 mg PO DAILY 12/07/21 01/06/22 Dextroamphetamine/Amphetamine 20 mg PO BID 12/07/21 01/06/22 [Dextroamp-Amphetamin 20 mg Tab] Glimepiride [Amaryl] 4 mg PO DAILY 12/07/21 01/06/22 Multivitamins, Thera [Multivitamin 1 tab PO DAILY 12/07/21 01/06/22 (formulary)] SUMAtriptan succinate [Imitrex] 100 mg PO DAILY PRN 12/07/21 01/06/22 Semaglutide [Rybelsus] 14 mg PO DAILY 01/06/22 01/06/22 Previous Rx's Medication Instructions Recorded Ondansetron Odt [Zofran Odt] 4 mg PO Q8H PRN #12 tab 01/06/22 Ondansetron Odt [Zofran Odt] 4 mg PO Q8HR PRN #15 tab 01/12/22 clindamycin HCL [Cleocin] 300 mg PO Q6HR #40 cap 01/21/22 Cephalexin [Keflex] 500 mg PO Q6HR #40 cap 02/21/22 Promethazine Suppository 25 mg RECTAL TID PRN #15 supp 02/21/22 [Phenergan] Cephalexin [Keflex] 500 mg PO Q12HR 5 Days #10 cap 02/27/22 Fluconazole [Diflucan] 150 mg PO ONCE #1 tab 02/27/22 Cefdinir 300 mg PO Q12HR #14 cap 05/14/22 Baclofen 10 mg PO TID PRN #20 tab 05/24/22 Phenazopyridine HCl [Pyridium] 100 mg PO TID PRN #6 tab 06/05/22 Allergies Allergy/AdvReac Type Severity Reaction Status Date / Time bupropion HCl Allergy Rash/Hives Verified 06/05/22 01:05 [From Wellbutrin] divalproex sodium Allergy Unknown Verified 06/05/22 01:05 [From Depakote] fentanyl Allergy Swelling Verified 06/05/22 01:05 Iodinated Contrast Media Allergy Anaphylaxis Verified 06/05/22 01:05 [Iodinated Contrast Media - IV Dye] orange juice [[place]] Allergy Rash/Hives Verified 06/05/22 01:05 Sulfa (Sulfonamide Allergy Rash/Hives Verified 06/05/22 01:05 Antibiotics) Penicillins AdvReac Rash/Hives/Gi Verified 06/05/22 01:05 Upset Review of Systems ROS Statement: Those systems with pertinent positive or pertinent negative responses have been documented in the HPI. ROS Other: All systems not noted in ROS Statement are negative. 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 History of Any Multi-Drug Resistant Organisms: ESBL Date of last positivie culture/infection: 05/14/17 MDRO Source:: ESBL URINE, Past Surgical History: Bladder Surgery, Section, Cholecystectomy, Hysterectomy, Orthopedic Surgery, Tubal Ligation Additional Past Surgical History / Comment(s): R ovarian cystectomy, laparoscopic surgery for L ovary that had attached to the bowel, D&C, numerous lithotripsies, nephroscopies, cystoscopies and stents to ureters-none in place at this time, L robotic pyeloplasty with post op infection around kidney which then required a picc line/later removed (pt states was not MRSA), L rotator cuff repair, L wrist tendon surgery, colonoscopy. Kidney stone removal. Past Anesthesia/Blood Transfusion Reactions: Family History of Problems w/ Anesthesia Additional Past Anesthesia/Blood Transfusion Reaction / Comment(s): dad-hard time waking up due to enzyme problems in liver Past Psychological History: ADD/ADHD, Anxiety, Bipolar, Depression, PTSD Smoking Status: Current every day smoker Past Alcohol Use History: None Reported Past Drug Use History: None Reported - Past Family History Brother(s) Family Medical History: Cancer Additional Family Medical History / Comment(s): testicular Father Family Medical History: Coronary Artery Disease (CAD), CVA/TIA, Diabetes Mellitus, Renal Disease Additional Family Medical History / Comment(s): GLAUCOMA,NEUROPATHY HAD TRIPLE CABG, at 56yrs from renal disease. Mother Family Medical History: Hyperlipidemia Additional Family Medical History / Comment(s): DDD, HAD 3 vessel CABG AGE 54. General Exam - General Exam Comments Initial Comments: Patient really in no significant distress. Does not appear very ill or toxic. Limitations: no limitations General appearance: alert, in no apparent distress Head exam: Present: atraumatic, normocephalic, normal inspection Eye exam: Present: normal appearance, PERRL, EOMI. Absent: scleral icterus, conjunctival injection, periorbital swelling ENT exam: Present: normal exam, mucous membranes moist Neck exam: Present: normal inspection. Absent: tenderness, meningismus, lymphadenopathy Respiratory exam: Present: normal lung sounds bilaterally. Absent: respiratory distress, wheezes, rales, rhonchi, stridor Cardiovascular Exam: Present: regular rate, normal rhythm, normal heart sounds. Absent: systolic murmur, diastolic murmur, rubs, gallop, clicks GI/Abdominal exam: Present: soft, normal bowel sounds. Absent: distended, tenderness, guarding, rebound, rigid Extremities exam: Present: normal inspection, full ROM, normal capillary refill. Absent: tenderness, pedal edema, joint swelling, calf tenderness Back exam: Present: normal inspection Neurological exam: Present: alert, oriented X3, CN II-XII intact Psychiatric exam: Present: normal affect, normal mood Skin exam: Present: warm, dry, intact, normal color. Absent: rash Course Vital Signs 06/05/22 01:06 Temperature 97.4 F L Pulse Rate 109 H Respiratory 16 Rate Blood Pressure 119/77 O2 Sat by Pulse 98 Oximetry - Reevaluation(s) Reevaluation #1: 06/05/22 03:51 Medical record is reviewed Symptoms are improved here in the emergency department Patient is informed of results and questions answered Patient in no distress Medical Decision Making - Medical Decision Making Patient has greater than 182 red cells per high-powered field, 9 white cells per high powered field. Rare bacteria. 14 squamous epithelial cells. Negative nitrite. CMP is essentially unremarkable. CBC shows a white blood cell count of 12,600. Otherwise unremarkable. Lymphocytes are 6500. Patient improved after pain medication. I see no evidence of infectious process. We'll send the urine for culture. Patient did ask for Pyridium. Patient states she feels well enough to go home. Patient hard he has an appointment with her urologist coming up this week. Patient was told to return to the ER for any signs or symptoms worsen. Told to return immediately if any other problems arise. All questions answered. Treatment plan discussed. Patient in agreement Every effort has been made to ensure accuracy of this dictation. However, due to the limitations of electronic medical records and dictation devices, errors in charting still occur. I did consider antibiotics given the patient's history. However the patient has a less than 9 white cells per high-powered field in the urine appears to be contaminated. We'll forego antibiotics in lieu of urine culture. The case was discussed in detail with ED attending physician. Presentation, findings, treatment plan discussed in detail. Supervising Dr. Nelson - Lab Data Result diagrams: 06/05/22 02:20 06/05/22 02:20 Lab Results 06/05/22 06/05/22 06/05/22 Range/Units 01:15 02:20 02:20 WBC 12.6 H (3.8-10.6) k/uL RBC 4.94 (3.80-5.40) m/uL Hgb 14.9 (11.4-16.0) gm/dL Hct 41.8 (34.0-46.0) % MCV 84.7 (80.0-100.0) fL MCH 30.2 (25.0-35.0) pg MCHC 35.7 (31.0-37.0) g/dL RDW 11.7 (11.5-15.5) % Plt Count 260 (150-450) k/uL MPV 8.2 Neutrophils % 39 % Lymphocytes % 52 % Monocytes % 5 % Eosinophils % 2 % Basophils % 1 % Neutrophils # 4.9 (1.3-7.7) k/uL Lymphocytes # 6.5 H (1.0-4.8) k/uL Monocytes # 0.6 (0-1.0) k/uL Eosinophils # 0.2 (0-0.7) k/uL Basophils # 0.1 (0-0.2) k/uL Sodium 138 (137-145) mmol/L Potassium 3.6 (3.5-5.1) mmol/L Chloride 105 (98-107) mmol/L Carbon Dioxide 21 L (22-30) mmol/L Anion Gap 12 mmol/L BUN 11 (7-17) mg/dL Creatinine 0.62 (0.52-1.04) mg/dL Est GFR (CKD-EPI)AfAm >90 (>60 ml/min/1.73 sqM) Est GFR (CKD-EPI)NonAf >90 (>60 ml/min/1.73 sqM) Glucose 73 L (74-99) mg/dL Calcium 9.7 (8.4-10.2) mg/dL Total Bilirubin 0.7 (0.2-1.3) mg/dL AST 30 (14-36) U/L ALT 26 (4-34) U/L Alkaline Phosphatase 111 (38-126) U/L Total Protein 7.4 (6.3-8.2) g/dL Albumin 4.6 (3.5-5.0) g/dL Urine Color Red Urine Appearance Cloudy H (Clear) Urine pH 5.5 (5.0-8.0) Ur Specific [place] 1.036 H (1.001-1.035) Urine Protein 1+ H (Negative) Urine Glucose (UA) Negative (Negative) Urine Ketones 1+ H (Negative) Urine Blood Large H (Negative) Urine Nitrite Negative (Negative) Urine Bilirubin Negative (Negative) Urine Urobilinogen 2.0 (<2.0) mg/dL Ur Leukocyte Esterase Small H (Negative) Urine RBC >182 H (0-5) /hpf Urine WBC 9 H (0-5) /hpf Ur Squamous Epith Cells 14 H (0-4) /hpf Urine Bacteria Rare H (None) /hpf Urine Mucus Many H (None) /hpf - Radiology Data Radiology results: report reviewed, image reviewed KUB independently interpreted by me reveals no evidence of acute pathology. I did review radiology interpretation. Disposition Clinical Impression: Right flank pain, chronic, Renal colic on right side Disposition: HOME SELF-CARE Condition: Good Instructions (If sedation given, give patient instructions): Flank Pain (ED) Additional Instructions: Follow-up with your regular physician as directed. Return to the ER immediately if any symptoms worsen, new symptoms arise, or any other problems develop. Ensure you keep her appointment with the urologist this week as planned. Drink plenty of fluids Prescriptions: Phenazopyridine HCl [Pyridium] 100 mg PO TID PRN #6 tab PRN Reason: Pain Is patient prescribed a controlled substance at d/c from ED?: No Referrals: Rajiv Sexton MD [Primary Care Provider] - 1-2 days Time of Disposition: 03:53
[2022-06-05 02:39] LABS: Basophils # (A) 0.1 k/uL (0-0.2); Basophils % (A) 1 %; Eosinophils # (A) 0.2 k/uL (0-0.7); Eosinophils % (A) 2 %; HCT 41.8 % (34.0-46.0); HGB 14.9 gm/dL (11.4-16.0); Lymphocytes # (A) 6.5 k/uL (1.0-4.8); Lymphocytes % (A) 52 %; MCH 30.2 pg (25.0-35.0); MCHC 35.7 g/dL (31.0-37.0); MCV 84.7 fL (80.0-100.0); Mean Platelet Volume 8.2; Monocytes # (A) 0.6 k/uL (0-1.0); Monocytes % (A) 5 %; Neutrophils # (A) 4.9 k/uL (1.3-7.7); Neutrophils % (A) 39 %; Platelet Count 260 k/uL (150-450); RBC 4.94 m/uL (3.80-5.40); RDW 11.7 % (11.5-15.5); WBC 12.6 k/uL (3.8-10.6)
[2022-06-05 02:50] LABS: ALT 26 U/L (4-34); AST 30 U/L (14-36); African American GFR (CKD) >90 (>60 ml/min/1.73 sqM); Albumin 4.6 g/dL (3.5-5.0); Alkaline Phosphatase 111 U/L (38-126); Anion Gap 12 mmol/L; Blood Urea Nitrogen 11 mg/dL (7-17); Calcium 9.7 mg/dL (8.4-10.2); Carbon Dioxide 21 mmol/L (22-30); Chloride 105 mmol/L (98-107); Glucose 73 mg/dL (74-99); Non-African American GFR(CKD) >90 (>60 ml/min/1.73 sqM); Potassium 3.6 mmol/L (3.5-5.1); Sodium 138 mmol/L (137-145); Total Bilirubin 0.7 mg/dL (0.2-1.3); Total Protein 7.4 g/dL (6.3-8.2)
--- NOTE | 2022-06-05 03:32 | XR ---
EXAMINATION TYPE: XR KUB DATE OF EXAM: 06/05/2022 COMPARISON: NONE HISTORY: Flank pain TECHNIQUE: 2 views upright FINDINGS: The bowel gas pattern is normal. No sign of intestinal obstruction or pneumoperitoneum. Fec al pattern is normal. No evidence of a mass. There are clips from cholecystectomy. Lung bases are ryland ar. IMPRESSION: Nonacute abdomen. No adverse change compared to old exam.
[2022-06-05] MEDS ORDERED: PHENAZOPYRIDINE 100 MG TAB PO STA (03:51)
== END 2022-06-05 04:11 | disposition home or self-care (01) ==
LOC: EC 00:51
DX: R10.9 Unspecified abdominal pain (principal); G89.29 Other chronic pain; E11.9 Type 2 diabetes mellitus without complications; I10 Essential (primary) hypertension; F90.9 Attention-deficit hyperactivity disorder, unspecified type; F41.9 Anxiety disorder, unspecified; F31.9 Bipolar disorder, unspecified; F17.200 Nicotine dependence, unspecified, uncomplicated; Z79.84 Long term (current) use of oral hypoglycemic drugs; Z79.899 Other long term (current) drug therapy; Z88.2 Allergy status to sulfonamides; Z88.0 Allergy status to penicillin; Z91.041 Radiographic dye allergy status; Z88.8 Allergy status to other drugs, medicaments and biological substances; Z91.018 Allergy to other foods
CPT/HCPCS: 36415; 80053; 85025; 81001; 87086; 74018; 99284; 96374; 96375; 96361; J2270; J2405

== ENCOUNTER 2022-06-11 00:03 | Emergency (ER) | payer BC, OTHER ==
[2022-06-11 00:13] VITALS: TEMP 98
--- NOTE | 2022-06-11 00:33 | ED ---
Recheck HPI - General Chief Complaint: Urogenital Stated Complaint: Kidney Stone, UTI Time Seen by Provider: 06/11/22 00:30 Source: patient, RN notes reviewed, old records reviewed Mode of arrival: ambulatory Limitations: no limitations - History of Present Illness Initial Comments: This is a 47 show female well-known to our ER coming in for chronic abdominal pain acute on chronic abdominal pain patient does not feel well as an increased nausea and vomiting lately unable to not take any of her medications at home. Patient states that she has increased pain This increased weakness not feeling well and unable to take medications patient Dese for dehydration weakness and pain MD Complaint: medication refill request -: days(s) Returns Today for: Called Because of Abnormal Lab/Test, persistent/worsening pain related to initial visit Symptoms Since Prior Visit: worsening pain Associated Symptoms: none Treatments Prior to Arrival: Given Pain Meds on - Related Data Home Medications Medication Instructions Recorded Confirmed oxyCODONE-APAP 10-325MG [Percocet 1 tab PO QID PRN 08/29/17 01/06/22 10-325 mg] PARoxetine HCL [Paxil] 40 mg PO DAILY 03/12/18 01/06/22 PARoxetine [Paxil] 20 mg PO DAILY 06/04/18 01/06/22 Loratadine 10 mg PO DAILY 04/21/20 01/06/22 Dapagliflozin Propanediol [Farxiga] 10 mg PO DAILY 12/07/21 01/06/22 Dextroamphetamine/Amphetamine 20 mg PO BID 12/07/21 01/06/22 [Dextroamp-Amphetamin 20 mg Tab] Glimepiride [Amaryl] 4 mg PO DAILY 12/07/21 01/06/22 Multivitamins, Thera [Multivitamin 1 tab PO DAILY 12/07/21 01/06/22 (formulary)] SUMAtriptan succinate [Imitrex] 100 mg PO DAILY PRN 12/07/21 01/06/22 Semaglutide [Rybelsus] 14 mg PO DAILY 01/06/22 01/06/22 Previous Rx's Medication Instructions Recorded Ondansetron Odt [Zofran Odt] 4 mg PO Q8H PRN #12 tab 01/06/22 Ondansetron Odt [Zofran Odt] 4 mg PO Q8HR PRN #15 tab 01/12/22 clindamycin HCL [Cleocin] 300 mg PO Q6HR #40 cap 01/21/22 Cephalexin [Keflex] 500 mg PO Q6HR #40 cap 02/21/22 Promethazine Suppository 25 mg RECTAL TID PRN #15 supp 02/21/22 [Phenergan] Cephalexin [Keflex] 500 mg PO Q12HR 5 Days #10 cap 02/27/22 Fluconazole [Diflucan] 150 mg PO ONCE #1 tab 02/27/22 Cefdinir 300 mg PO Q12HR #14 cap 05/14/22 Baclofen 10 mg PO TID PRN #20 tab 05/24/22 Phenazopyridine HCl [Pyridium] 100 mg PO TID PRN #6 tab 06/05/22 Allergies Allergy/AdvReac Type Severity Reaction Status Date / Time bupropion HCl Allergy Rash/Hives Verified 06/17/22 20:37 [From Wellbutrin] divalproex sodium Allergy Unknown Verified 06/17/22 20:37 [From Depakote] fentanyl Allergy Swelling Verified 06/17/22 20:37 Iodinated Contrast Media Allergy Anaphylaxis Verified 06/17/22 20:37 [Iodinated Contrast Media - IV Dye] orange juice [[place]] Allergy Rash/Hives Verified 06/17/22 20:37 Sulfa (Sulfonamide Allergy Rash/Hives Verified 06/17/22 20:37 Antibiotics) Penicillins AdvReac Rash/Hives/Gi Verified 06/17/22 20:37 Upset Review of Systems ROS Statement: Those systems with pertinent positive or pertinent negative responses have been documented in the HPI. ROS Other: All systems not noted in ROS Statement are negative. 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 History of Any Multi-Drug Resistant Organisms: ESBL Date of last positivie culture/infection: 05/14/17 MDRO Source:: ESBL URINE, Past Surgical History: Bladder Surgery, Section, Cholecystectomy, Hyste rectomy, Orthopedic Surgery, Tubal Ligation Additional Past Surgical History / Comment(s): R ovarian cystectomy, laparoscopic surgery for L ovary that had attached to the bowel, D&C, numerous lithotripsies, nephroscopies, cystoscopies and stents to ureters-none in place at this time, L robotic pyeloplasty with post op infection around kidney which then required a picc line/later removed (pt states was not MRSA), L rotator cuff repair, L wrist tendon surgery, colonoscopy. Kidney stone removal. Past Anesthesia/Blood Transfusion Reactions: Family History of Problems w/ Anesthesia Additional Past Anesthesia/Blood Transfusion Reaction / Comment(s): dad-hard time waking up due to enzyme problems in liver Past Psychological History: ADD/ADHD, Anxiety, Bipolar, Depression, PTSD Smoking Status: Current every day smoker Past Alcohol Use History: None Reported Past Drug Use History: None Reported - Past Family History Brother(s) Family Medical History: Cancer Additional Family Medical History / Comment(s): testicular Father Family Medical History: Coronary Artery Disease (CAD), CVA/TIA, Diabetes Mellitus, Renal Disease Additional Family Medical History / Comment(s): GLAUCOMA,NEUROPATHY HAD TRIPLE CABG, at 56yrs from renal disease. Mother Family Medical History: Hyperlipidemia Additional Family Medical History / Comment(s): DDD, HAD 3 vessel CABG AGE 54. General Exam Limitations: no limitations General appearance: anxious Head exam: Present: atraumatic, normocephalic, normal inspection Eye exam: Present: normal appearance, PERRL, EOMI. Absent: scleral icterus, conjunctival injection, periorbital swelling ENT exam: Present: normal exam, mucous membranes moist Neck exam: Present: normal inspection. Absent: tenderness, meningismus, lymph adenopathy Respiratory exam: Present: normal lung sounds bilaterally. Absent: respiratory distress, wheezes, rales, rhonchi, stridor Cardiovascular Exam: Present: regular rate, normal rhythm, normal heart sounds. Absent: systolic murmur, diastolic murmur, rubs, gallop, clicks GI/Abdominal exam: Present: soft, normal bowel sounds. Absent: distended, tenderness, guarding, rebound, rigid Extremities exam: Present: normal inspection, full ROM, normal capillary refill. Absent: tenderness, pedal edema, joint swelling, calf tenderness Back exam: Present: normal inspection Neurological exam: Present: alert, oriented X3, CN II-XII intact Psychiatric exam: Present: normal affect, normal mood Skin exam: Present: warm, dry, intact, normal color. Absent: rash Course Vital Signs 06/11/22 06/11/22 00:11 01:49 Temperature 98.0 F Pulse Rate 105 H 96 Respiratory 20 15 Rate Blood Pressure 122/77 97/55 O2 Sat by Pulse 99 100 Oximetry - Reevaluation(s) Reevaluation #1: 06/11/22 medical record is reviewed Patient symptoms are improved here in the ER Patient informed of results and questions answered Medical Decision Making - Medical Decision Making 47-year-old female to the emergency department for evaluation patient Dese for evaluation regards to chronic pain with nausea vomiting symptoms improved patient feels improved and can be discharged home - Lab Data Result diagrams: 06/11/22 01:07 06/11/22 01:07 Lab Results 06/11/22 06/11/22 06/11/22 Range/Units 01:07 01:07 01:07 WBC 12.4 H (3.8-10.6) k/uL RBC 4.91 (3.80-5.40) m/uL Hgb 15.0 (11.4-16.0) gm/dL Hct 41.6 (34.0-46.0) % MCV 84.7 (80.0-100.0) fL MCH 30.6 (25.0-35.0) pg MCHC 36.2 (31.0-37.0) g/dL RDW 11.9 (11.5-15.5) % Plt Count 281 (150-450) k/uL MPV 7.6 Neutrophils % 43 % Lymphocytes % 49 % Monocytes % 4 % Eosinophils % 2 % Basophils % 1 % Neutrophils # 5.3 (1.3-7.7) k/uL Lymphocytes # 6.0 H (1.0-4.8) k/uL Monocytes # 0.5 (0-1.0) k/uL Eosinophils # 0.2 (0-0.7) k/uL Basophils # 0.1 (0-0.2) k/uL Manual Slide Review Performed Sodium 138 (137-145) mmol/L Potassium 4.4 (3.5-5.1) mmol/L Chloride 107 (98-107) mmol/L Carbon Dioxide 18 L (22-30) mmol/L Anion Gap 13 mmol/L BUN 8 (7-17) mg/dL Creatinine 0.50 L (0.52-1.04) mg/dL Est GFR (CKD-EPI)AfAm >90 (>60 ml/min/1.73 sqM) Est GFR (CKD-EPI)NonAf >90 (>60 ml/min/1.73 sqM) Glucose 130 H (74-99) mg/dL Calcium 9.3 (8.4-10.2) mg/dL Phosphorus 5.3 H (2.5-4.5) mg/dL Magnesium 1.6 (1.6-2.3) mg/dL Total Bilirubin 1.1 (0.2-1.3) mg/dL AST 40 H (14-36) U/L ALT 25 (4-34) U/L Alkaline Phosphatase 80 (38-126) U/L Total Protein 7.7 (6.3-8.2) g/dL Albumin 4.7 (3.5-5.0) g/dL Urine Color Yellow Urine Appearance Clear (Clear) Urine pH 5.5 (5.0-8.0) Ur Specific [place] 1.012 (1.001-1.035) Urine Protein Negative (Negative) Urine Glucose (UA) Negative (Negative) Urine Ketones Negative (Negative) Urine Blood Large H (Negative) Urine Nitrite Negative (Negative) Urine Bilirubin Negative (Negative) Urine Urobilinogen <2.0 (<2.0) mg/dL Ur Leukocyte Esterase Trace H (Negative) Urine RBC >182 H (0-5) /hpf Urine WBC 5 (0-5) /hpf Ur Squamous Epith Cells 6 H (0-4) /hpf Urine Mucus Rare H (None) /hpf Disposition Clinical Impression: Abdominal pain Disposition: HOME SELF-CARE Condition: Good Instructions (If sedation given, give patient instructions): Abdominal Pain (ED) Is patient prescribed a controlled substance at d/c from ED?: No Referrals: Rajiv Sexton MD [Primary Care Provider] - 1-2 days Time of Disposition: 02:00
[2022-06-11] MEDS ORDERED: SODIUM CHLORIDE 0.9% 1,000 ML IV STA (00:42)
[2022-06-11] MEDS ORDERED: HYDROmorphone 1 MG/ML 1 ML SYRINGE IVP STA (00:42)
[2022-06-11] MEDS ORDERED: diphenhydrAMINE 50 MG/ML 1 ML VIAL IVP STA (00:42)
[2022-06-11] MEDS ORDERED: PROCHLORPERAZINE INJ 10 MG/2 ML VIAL IVP STA (00:42)
[2022-06-11 01:16] LABS: Basophils # (A) 0.1 k/uL (0-0.2); Basophils % (A) 1 %; Eosinophils # (A) 0.2 k/uL (0-0.7); Eosinophils % (A) 2 %; HCT 41.6 % (34.0-46.0); Lymphocytes % (A) 49 %; MCH 30.6 pg (25.0-35.0); MCHC 36.2 g/dL (31.0-37.0); MCV 84.7 fL (80.0-100.0); Mean Platelet Volume 7.6; Monocytes # (A) 0.5 k/uL (0-1.0); Monocytes % (A) 4 %; Neutrophils # (A) 5.3 k/uL (1.3-7.7); Neutrophils % (A) 43 %; Platelet Count 281 k/uL (150-450); RBC 4.91 m/uL (3.80-5.40); RDW 11.9 % (11.5-15.5); WBC 12.4 k/uL (3.8-10.6)
[2022-06-11 01:32] LABS: ALT 25 U/L (4-34); African American GFR (CKD) >90 (>60 ml/min/1.73 sqM); Anion Gap 13 mmol/L; Blood Urea Nitrogen 8 mg/dL (7-17); Calcium 9.3 mg/dL (8.4-10.2); Carbon Dioxide 18 mmol/L (22-30); Chloride 107 mmol/L (98-107); Glucose 130 mg/dL (74-99); Non-African American GFR(CKD) >90 (>60 ml/min/1.73 sqM); Sodium 138 mmol/L (137-145)
[2022-06-11 01:33] LABS: Appearance,Urine Clear (Clear); Bilirubin,Urine Negative (Negative); Blood,Urine Large (Negative); Color,Urine Yellow; Glucose,Urine (UA) Negative (Negative); Ketones,Urine Negative (Negative); Leukocyte Esterase,Urine Trace (Negative); Mucus,Urine Rare /hpf; Nitrite,Urine Negative (Negative); PH, Urine 5.5 (5.0-8.0); Protein,Urine Negative (Negative); RBC,Urine >182 /hpf (0-5); Specific Gravity,Urine 1.012 (1.001-1.035); Squamous Epithelial Cell,Urine 6 /hpf (0-4); Urobilinogen,Urine <2.0 mg/dL (<2.0); WBC,Urine 5 /hpf (0-5)
[2022-06-11 01:35] LABS: Albumin 4.7 g/dL (3.5-5.0); Phosphorus 5.3 mg/dL (2.5-4.5); Potassium 4.4 mmol/L (3.5-5.1); Total Protein 7.7 g/dL (6.3-8.2)
[2022-06-11 01:36] LABS: AST 40 U/L (14-36); Alkaline Phosphatase 80 U/L (38-126); Magnesium 1.6 mg/dL (1.6-2.3); Total Bilirubin 1.1 mg/dL (0.2-1.3)
[2022-06-11 01:54] VITALS: BP 97/55; PULSE 96; RESP 15
== END 2022-06-11 01:54 | disposition home or self-care (01) ==
LOC: EC 00:03
DX: R10.30 Lower abdominal pain, unspecified (principal); E11.9 Type 2 diabetes mellitus without complications; K21.9 Gastro-esophageal reflux disease without esophagitis; E78.5 Hyperlipidemia, unspecified; I12.9 Hypertensive chronic kidney disease with stage 1 through stage 4 chronic kidney disease, or unspecified chronic kidney disease; N18.9 Chronic kidney disease, unspecified; F90.9 Attention-deficit hyperactivity disorder, unspecified type; F41.9 Anxiety disorder, unspecified; F31.9 Bipolar disorder, unspecified; F17.200 Nicotine dependence, unspecified, uncomplicated; Z79.899 Other long term (current) drug therapy; Z88.2 Allergy status to sulfonamides; Z88.0 Allergy status to penicillin; Z91.041 Radiographic dye allergy status; Z91.018 Allergy to other foods; Z88.1 Allergy status to other antibiotic agents; Z88.8 Allergy status to other drugs, medicaments and biological substances
CPT/HCPCS: 36415; 80053; 83735; 84100; 85025; 81001; 99284; 96374; 96375 ×2; J1200; J0780; J1170

== ENCOUNTER 2022-06-17 20:25 | Emergency (ER) | payer BC, OTHER ==
[2022-06-17 20:37] VITALS: RESP 16; TEMP 97.8
[2022-06-17] MEDS ORDERED: SODIUM CHLORIDE 0.9% 2,000 ML IV STA (20:41)
[2022-06-17] MEDS ORDERED: KETOROLAC 15 MG/ML 1 ML VIAL IVP STA (20:41)
[2022-06-17] MEDS ORDERED: ACETAMINOPHEN IV (For NPO) 1,000 MG in SALINE 1 100ML.BAG IVPB STA (20:41)
[2022-06-17] MEDS ORDERED: ONDANSETRON 4 MG/2 ML VIAL IVP STA (20:41)
--- NOTE | 2022-06-17 20:47 | ED ---
Abdominal Pain HPI - General Chief Complaint: Abdominal Pain Stated Complaint: Abd Pain, Ear Pain Time Seen by Provider: 06/17/22 20:29 Source: patient, RN notes reviewed Mode of arrival: ambulatory - History of Present Illness Initial Comments: This is a pleasant 47-year-old female who is well-known to the emergency department. The patient has a history of diabetes mellitus, frequent and recurrent kidney stones, hyperlipidemia, hypertension. Patient presents to the emergency Department today with complaint of right flank pain which she has had recurrently due to ureterolithiasis. Patient also complaining of pain in her left ear. Patient states it seemed to start after she vomited. Patient states she vomited about 8 times today. No hematemesis or coffee-ground emesis. No melena or hematochezia. Patient denying any chest pain or shortness of breath. Patient states she has had hematuria. Denying sore throat. Some nasal stuffiness but no nasal discharge. No right ear pain. No difficulty swallowing. No headache, no definitive fever or chills, no changes in vision or hearing, no sore throat or difficulty with speech, no neck pain, no chest pain or shortness of breath, no changes in bowel movements, no numbness or tingling, no extremity pain, no skin rashes or lesions. Past medical, surgical, social, and family history reviewed. MD Complaint: flank pain (Right flank pain) - Related Data Home Medications Medication Instructions Recorded Confirmed oxyCODONE-APAP 10-325MG [Percocet 1 tab PO QID PRN 08/29/17 01/06/22 10-325 mg] PARoxetine HCL [Paxil] 40 mg PO DAILY 03/12/18 01/06/22 PARoxetine [Paxil] 20 mg PO DAILY 06/04/18 01/06/22 Loratadine 10 mg PO DAILY 04/21/20 01/06/22 Dapagliflozin Propanediol [Farxiga] 10 mg PO DAILY 12/07/21 01/06/22 Dextroamphetamine/Amphetamine 20 mg PO BID 12/07/21 01/06/22 [Dextroamp-Amphetamin 20 mg Tab] Glimepiride [Amaryl] 4 mg PO DAILY 12/07/21 01/06/22 Multivitamins, Thera [Multivitamin 1 tab PO DAILY 12/07/21 01/06/22 (formulary)] SUMAtriptan succinate [Imitrex] 100 mg PO DAILY PRN 12/07/21 01/06/22 Semaglutide [Rybelsus] 14 mg PO DAILY 01/06/22 01/06/22 Previous Rx's Medication Instructions Recorded Ondansetron Odt [Zofran Odt] 4 mg PO Q8H PRN #12 tab 01/06/22 Ondansetron Odt [Zofran Odt] 4 mg PO Q8HR PRN #15 tab 01/12/22 clindamycin HCL [Cleocin] 300 mg PO Q6HR #40 cap 01/21/22 Cephalexin [Keflex] 500 mg PO Q6HR #40 cap 02/21/22 Promethazine Suppository 25 mg RECTAL TID PRN #15 supp 02/21/22 [Phenergan] Cephalexin [Keflex] 500 mg PO Q12HR 5 Days #10 cap 02/27/22 Fluconazole [Diflucan] 150 mg PO ONCE #1 tab 02/27/22 Cefdinir 300 mg PO Q12HR #14 cap 05/14/22 Baclofen 10 mg PO TID PRN #20 tab 05/24/22 Phenazopyridine HCl [Pyridium] 100 mg PO TID PRN #6 tab 06/05/22 Allergies Allergy/AdvReac Type Severity Reaction Status Date / Time bupropion HCl Allergy Rash/Hives Verified 06/17/22 20:37 [From Wellbutrin] divalproex sodium Allergy Unknown Verified 06/17/22 20:37 [From Depakote] fentanyl Allergy Swelling Verified 06/17/22 20:37 Iodinated Contrast Media Allergy Anaphylaxis Verified 06/17/22 20:37 [Iodinated Contrast Media - IV Dye] orange juice [[place]] Allergy Rash/Hives Verified 06/17/22 20:37 Sulfa (Sulfonamide Allergy Rash/Hives Verified 06/17/22 20:37 Antibiotics) Penicillins AdvReac Rash/Hives/Gi Verified 06/17/22 20:37 Upset Review of Systems ROS Statement: Those systems with pertinent positive or pertinent negative responses have been documented in the HPI. ROS Other: All systems not noted in ROS Statement are negative. 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 History of Any Multi-Drug Resistant Organisms: ESBL Date of last positivie culture/infection: 05/14/17 MDRO Source:: ESBL URINE, Past Surgical History: Bladder Surgery, Section, Cholecystectomy, Hysterectomy, Orthopedic Surgery, Tubal Ligation Additional Past Surgical History / Comment(s): R ovarian cystectomy, laparoscopic surgery for L ovary that had attached to the bowel, D&C, numerous lithotripsies, nephroscopies, cystoscopies and stents to ureters-none in place at this time, L robotic pyeloplasty with post op infection around kidney which then required a picc line/later removed (pt states was not MRSA), L rotator cuff repair, L wrist tendon surgery, colonoscopy. Kidney stone removal. Past Anesthesia/Blood Transfusion Reactions: Family History of Problems w/ Anesthesia Additional Past Anesthesia/Blood Transfusion Reaction / Comment(s): dad-hard time waking up due to enzyme problems in liver Past Psychological History: ADD/ADHD, Anxiety, Bipolar, Depression, PTSD Smoking Status: Current every day smoker Past Alcohol Use History: None Reported Past Drug Use History: None Reported - Past Family History Brother(s) Family Medical History: Cancer Additional Family Medical History / Comment(s): testicular Father Family Medical History: Coronary Artery Disease (CAD), CVA/TIA, Diabetes Mellitus, Renal Disease Additional Family Medical History / Comment(s): GLAUCOMA,NEUROPATHY HAD TRIPLE CABG, at 56yrs from renal disease. Mother Family Medical History: Hyperlipidemia Additional Family Medical History / Comment(s): DDD, HAD 3 vessel CABG AGE 54. General Exam - General Exam Comments Initial Comments: Patient noted be tachycardic. Right CVA tenderness on physical examination. Does not appear to be ill or toxic otherwise. Appears to be adequately hydrated. Capillary refill less than 2 seconds. No mottling, no respiratory distress. General appearance: alert, in distress (Mild distress) Head exam: Present: atraumatic, normocephalic, normal inspection Eye exam: Present: normal appearance, PERRL, EOMI. Absent: scleral icterus, conjunctival injection, periorbital swelling ENT exam: Present: normal exam, normal oropharynx, mucous membranes moist, TM's normal bilaterally, normal external ear exam, other (No evidence of tympanic membrane abnormality on physical examination.). Absent: mucous membranes dry Neck exam: Present: normal inspection, full ROM. Absent: tenderness, meningismus, lymphadenopathy Respiratory exam: Present: normal lung sounds bilaterally. Absent: respiratory distress, wheezes, rales, rhonchi, stridor Cardiovascular Exam: Present: normal rhythm, tachycardia (100/m on my evaluation by auscultation and radial pulse.), normal heart sounds. Absent: systolic murmur, diastolic murmur, rubs, gallop, clicks GI/Abdominal exam: Present: soft, normal bowel sounds. Absent: distended, tenderness, guarding, rebound, rigid Extremities exam: Present: normal inspection, full ROM, normal capillary refill. Absent: tenderness, pedal edema, joint swelling, calf tenderness Back exam: Present: normal inspection, CVA tenderness (R). Absent: CVA tenderness (L), paraspinal tenderness, vertebral tenderness, rash noted Neurological exam: Present: alert, oriented X3, CN II-XII intact Psychiatric exam: Present: normal affect, normal mood Skin exam: Present: warm, dry, intact, normal color. Absent: rash Course Vital Signs 06/17/22 06/17/22 06/17/22 20:34 21:41 22:24 Temperature 97.8 F Pulse Rate 118 H 96 97 Respiratory 16 16 16 Rate Blood Pressure 139/87 109/69 102/62 O2 Sat by Pulse 100 99 99 Oximetry 06/17/22 23:19 Temperature Pulse Rate 85 Respiratory 16 Rate Blood Pressure 128/76 O2 Sat by Pulse 100 Oximetry - Reevaluation(s) Reevaluation #1: 06/17/22 22:33 Patient reevaluated, still having pain. Lactic acid did come back at 3.5. Whi te blood cell count was normal. Glucose was Sectral for the patient. In fact this is good control for this patient. Suspect the increased lactic acid is due to dehydration. We'll bolus with another 1000 mg normal saline. We will repeat lactic acid after fluid bolus. Morphine ordered as the patient is still having pain. The case was discussed in detail with ED attending physician. Presentation, findings, treatment plan discussed in detail. Record Center Coordinator Dr. Montgomery Reevaluation #2: 06/18/22 00:02 Medical record is reviewed Symptoms are improved here in the emergency department Patient is informed of results and questions answered Patient in no distress Patient did become progressively but responded to oral hydration and food. Repeat lactate is pending Medical Decision Making - Medical Decision Making Was pt. sent in by a medical professional or institution? @ -no Did you speak to anyone other than the patient for history? @ -no Did you review nursing and triage notes? @ -yes Were old charts reviewed? @ -Old records reviewed Differential Diagnosis? @ -MDM differential flank pain: Renal stone, other intra-abdominal infectious process such as gallbladder disease or appendicitis. Does not appear to be consistent with cardiopulmonary disease. Does not appear to be consistent with diverticulitis. Possible pyelonephritis. Patient also has left ear pain. Differential otitis media, otitis externa, barotrauma, [place] Arauz syndrome, this is not intended to be a complete list. EKG interpreted by me (3pts min.)? @ -[none] X-rays interpreted by me (1pt min.)? @ -[none] CT interpreted by me (1pt min.)? @ -[none] U/S interpreted by me (1pt. min.)? @ -[none] What testing was considered but not performed? (CT, X-rays, U/S, labs)? Why? @ [Patient does have leukocytosis with a white blood cell count of 16,300. Neutrophil count is 9600. This is likely due to vomiting and inflammation. P atient shows no evidence of infectious process. Come back sublevel 18, anion gap was 11. Chloride 108. Blood glucose initially 154, patient was 60 a recheck and was essentially asymptomatic. 110 after eating and drinking. Initial lactic acid 3.5. Repeat pending. Urinalysis shows greater than 182 red cells per high-powered field. 3 white cells, 3 squamous epithelial cells, no ketones, no bacteria. KUB interpreted independently by me revealed no acute pathology. Radiology report reviewed. No evidence of DKA or infectious process. Repeat lactic acid was 1.6 What meds were considered but not given? Why? @ -[none] Did you discuss the management of the patient with other professionals? @ -[professionals i.e. Dr, PA, ADVANCED REGISTERED NURSE, Lab, RT, Psych Nurse, Traffic Signal Supervisor Maintenance, Psychological Science Professor, Teacher, Jig Borer, bilingual case manager? Give summary] Did you reconcile home meds? @ -[none] Was smoking cessation discussed for >3mins.? @ -[none] Was critical care preformed (if so, how long)? @ -[none] Were there social determinants of health that impacted care today? How? (Homelessness, low income, unemployed, alcoholism, drug addiction, transportation, low edu. Level, literacy, decrease access to med. care, residential, rehab)? @ -[Homelessness, low income, unemployed, alcoholism, drug addiction, transportation, low edu. Level, literacy, decrease access to med. care, residential, rehab?] Was there de-escalation of care discussed even if they declined? (Discuss DNR or withdrawal of care, Hospice)? @ -[Discuss DNR or withdrawal of care, Hospice?] What co-morbidities impacted this encounter? (DM, HTN, Smoking, COPD, CAD, Cancer, CVA, Hep., AIDS, mental health diagnosis, sleep apnea, morbid obesity)? @ -[DM, HTN, Smoking, COPD, CAD, Cancer, CVA, Hep., AIDS, mental health diagnosis, sleep apnea, morbid obesity?] Was patient admitted / discharged? @ -[hospital course] Undiagnosed new problem with uncertain prognosis? @ -[none] Drug Therapy requiring intensive monitoring for toxicity (Heparin, Nitro, Insulin, Cardizem)? @ -[none] Were any procedures done? @ -[none] Diagnosis/symptom? @ -Otalgia, right flank pain, nausea and vomiting, Acute, or Chronic, or Acute on Chronic? @ -[Acute on chronic] Uncomplicated (without systemic symptoms) or Complicated (systemic symptoms)? @ -[Complicated] Side effects of treatment? @ -[none] Exacerbation, Progression, or Severe Exacerbation] @ -Yes, exacerbation Poses a threat to life or bodily function? @ -Unlikely The case was discussed in detail with ED attending physician. Presentation, findings, treatment plan discussed in detail. Supervising physician Dr. Linda - Lab Data Result diagrams: 06/17/22 21:15 06/17/22 21:15 Lab Results 06/17/22 06/17/22 06/17/22 Range/Units 21:15 21:15 21:15 WBC 16.3 H (3.8-10.6) k/uL RBC 5.08 (3.80-5.40) m/uL Hgb 15.3 (11.4-16.0) gm/dL Hct 43.4 (34.0-46.0) % MCV 85.3 (80.0-100.0) fL MCH 30.2 (25.0-35.0) pg MCHC 35.4 (31.0-37.0) g/dL RDW 11.8 (11.5-15.5) % Plt Count 338 (150-450) k/uL MPV 7.6 Neutrophils % 59 % Lymphocytes % 33 % Monocytes % 5 % Eosinophils % 2 % Basophils % 1 % Neutrophils # 9.6 H (1.3-7.7) k/uL Lymphocytes # 5.4 H (1.0-4.8) k/uL Monocytes # 0.7 (0-1.0) k/uL Eosinophils # 0.2 (0-0.7) k/uL Basophils # 0.2 (0-0.2) k/uL Manual Slide Review Performed Sodium 137 (137-145) mmol/L Potassium 3.7 (3.5-5.1) mmol/L Chloride 108 H (98-107) mmol/L Carbon Dioxide 18 L (22-30) mmol/L Anion Gap 11 mmol/L BUN 11 (7-17) mg/dL Creatinine 0.57 (0.52-1.04) mg/dL Est GFR (CKD-EPI)AfAm >90 (>60 ml/min/1.73 sqM) Est GFR (CKD-EPI)NonAf >90 (>60 ml/min/1.73 sqM) Glucose 154 H (74-99) mg/dL POC Glucose (mg/dL) (70-110) mg/dL POC Glu Paster Hat Lining ID Lactic Ac Sepsis Rflx Plasma Lactic Acid Brant (0.7-2.0) mmol/L Calcium 9.4 (8.4-10.2) mg/dL Total Bilirubin 0.7 (0.2-1.3) mg/dL AST 30 (14-36) U/L ALT 30 (4-34) U/L Alkaline Phosphatase 92 (38-126) U/L Total Protein 7.1 (6.3-8.2) g/dL Albumin 4.4 (3.5-5.0) g/dL Lipase 152 (23-300) U/L Urine Color Yellow Urine Appearance Clear (Clear) Urine pH 6.0 (5.0-8.0) Ur Specific Ada 1.012 (1.001-1.035) Urine Protein Trace H (Negative) Urine Glucose (UA) Negative (Negative) Urine Ketones Negative (Negative) Urine Blood Large H (Negative) Urine Nitrite Negative (Negative) Urine Bilirubin Negative (Negative) Urine Urobilinogen <2.0 (<2.0) mg/dL Ur Leukocyte Esterase Trace H (Negative) Urine RBC >182 H (0-5) /hpf Urine WBC 3 (0-5) /hpf Ur Squamous Epith Cells 3 (0-4) /hpf Urine Mucus Rare H (None) /hpf 06/17/22 06/17/22 06/17/22 Range/Units 21:15 22:32 23:18 WBC (3.8-10.6) k/uL RBC (3.80-5.40) m/uL Hgb (11.4-16.0) gm/dL Hct (34.0-46.0) % MCV (80.0-100.0) fL MCH (25.0-35.0) pg MCHC (31.0-37.0) g/dL RDW (11.5-15.5) % Plt Count (150-450) k/uL MPV Neutrophils % % Lymphocytes % % Monocytes % % Eosinophils % % Basophils % % Neutrophils # (1.3-7.7) k/uL Lymphocytes # (1.0-4.8) k/uL Monocytes # (0-1.0) k/uL Eosinophils # (0-0.7) k/uL Basophils # (0-0.2) k/uL Manual Slide Review Sodium (137-145) mmol/L Potassium (3.5-5.1) mmol/L Chloride (98-107) mmol/L Carbon Dioxide (22-30) mmol/L Anion Gap mmol/L BUN (7-17) mg/dL Creatinine (0.52-1.04) mg/dL Est GFR (CKD-EPI)AfAm (>60 ml/min/1.73 sqM) Est GFR (CKD-EPI)NonAf (>60 ml/min/1.73 sqM) Glucose (74-99) mg/dL POC Glucose (mg/dL) 60 L (70-110) mg/dL POC Glu Paster Hat Lining ID Cristy Serrano Lactic Ac Sepsis Rflx Y Plasma Lactic Acid Brant 3.5 H* (0.7-2.0) mmol/L Calcium (8.4-10.2) mg/dL Total Bilirubin (0.2-1.3) mg/dL AST (14-36) U/L ALT (4-34) U/L Alkaline Phosphatase (38-126) U/L Total Protein (6.3-8.2) g/dL Albumin (3.5-5.0) g/dL Lipase (23-300) U/L Urine Color Urine Appearance (Clear) Urine pH (5.0-8.0) Ur Specific [place] (1.001-1.035) Urine Protein (Negative) Urine Glucose (UA) (Negative) Urine Ketones (Negative) Urine Blood (Negative) Urine Nitrite (Negative) Urine Bilirubin (Negative) Urine Urobilinogen (<2.0) mg/dL Ur Leukocyte Esterase (Negative) Urine RBC (0-5) /hpf Urine WBC (0-5) /hpf Ur Squamous Epith Cells (0-4) /hpf Urine Mucus (None) /hpf 06/17/22 06/17/22 Range/Units 23:20 23:36 WBC (3.8-10.6) k/uL RBC (3.80-5.40) m/uL Hgb (11.4-16.0) gm/dL Hct (34.0-46.0) % MCV (80.0-100.0) fL MCH (25.0-35.0) pg MCHC (31.0-37.0) g/dL RDW (11.5-15.5) % Plt Count (150-450) k/uL MPV Neutrophils % % Lymphocytes % % Monocytes % % Eosinophils % % Basophils % % Neutrophils # (1.3-7.7) k/uL Lymphocytes # (1.0-4.8) k/uL Monocytes # (0-1.0) k/uL Eosinophils # (0-0.7) k/uL Basophils # (0-0.2) k/uL Manual Slide Review Sodium (137-145) mmol/L Potassium (3.5-5.1) mmol/L Chloride (98-107) mmol/L Carbon Dioxide (22-30) mmol/L Anion Gap mmol/L BUN (7-17) mg/dL Creatinine (0.52-1.04) mg/dL Est GFR (CKD-EPI)AfAm (>60 ml/min/1.73 sqM) Est GFR (CKD-EPI)NonAf (>60 ml/min/1.73 sqM) Glucose (74-99) mg/dL POC Glucose (mg/dL) 110 (70-110) mg/dL POC Glu Paster Hat Lining ID Cristy Serrano Lactic Ac Sepsis Rflx Plasma Lactic Acid Brant 1.6 (0.7-2.0) mmol/L Calcium (8.4-10.2) mg/dL Total Bilirubin (0.2-1.3) mg/dL AST (14-36) U/L ALT (4-34) U/L Alkaline Phosphatase (38-126) U/L Total Protein (6.3-8.2) g/dL Albumin (3.5-5.0) g/dL Lipase (23-300) U/L Urine Color Urine Appearance (Clear) Urine pH (5.0-8.0) Ur Specific [place] (1.001-1.035) Urine Protein (Negative) Urine Glucose (UA) (Negative) Urine Ketones (Negative) Urine Blood (Negative) Urine Nitrite (Negative) Urine Bilirubin (Negative) Urine Urobilinogen (<2.0) mg/dL Ur Leukocyte Esterase (Negative) Urine RBC (0-5) /hpf Urine WBC (0-5) /hpf Ur Squamous Epith Cells (0-4) /hpf Urine Mucus (None) /hpf - Radiology Data Radiology results: report reviewed, image reviewed Disposition Clinical Impression: Chronic right flank pain, Otalgia, left ear, Nausea and vomiting, Dysfunction of left eustachian tube Narrative: Recurrent nausea and vomiting Disposition: HOME SELF-CARE Condition: Stable Instructions (If sedation given, give patient instructions): Kidney Stones (ED), Acute Nausea and Vomiting (ED), Earache (ED) Additional Instructions: Follow-up with your regular physician as directed. Return to the ER immediately if any symptoms worsen, new symptoms arise, or any other problems develop. Is patient prescribed a controlled substance at d/c from ED?: No Referrals: Rajiv Sexton MD [Primary Care Provider] - 1-2 days Time of Disposition: 00:40
--- NOTE | 2022-06-17 21:41 | XR ---
EXAMINATION TYPE: XR KUB DATE OF EXAM: 06/17/2022 COMPARISON: 06/05/2022 HISTORY: Abdominal pain TECHNIQUE: 2 views upright FINDINGS: There is no sign of intestinal obstruction or pneumoperitoneum. There are clips from cholec ystectomy. There is slight lumbar levoscoliosis. No definite calcifications over the kidneys. No sign of a mass. Lung bases appear clear. IMPRESSION: Nonacute abdomen. No change.
[2022-06-17 21:57] LABS: Basophils # (A) 0.2 k/uL (0-0.2); Basophils % (A) 1 %; Eosinophils # (A) 0.2 k/uL (0-0.7); Eosinophils % (A) 2 %; HCT 43.4 % (34.0-46.0); HGB 15.3 gm/dL (11.4-16.0); Lymphocytes # (A) 5.4 k/uL (1.0-4.8); Lymphocytes % (A) 33 %; MCH 30.2 pg (25.0-35.0); MCHC 35.4 g/dL (31.0-37.0); MCV 85.3 fL (80.0-100.0); Mean Platelet Volume 7.6; Monocytes # (A) 0.7 k/uL (0-1.0); Monocytes % (A) 5 %; Neutrophils # (A) 9.6 k/uL (1.3-7.7); Neutrophils % (A) 59 %; Platelet Count 338 k/uL (150-450); RBC 5.08 m/uL (3.80-5.40); RDW 11.8 % (11.5-15.5); WBC 16.3 k/uL (3.8-10.6)
[2022-06-17 22:19] LABS: ALT 30 U/L (4-34); AST 30 U/L (14-36); African American GFR (CKD) >90 (>60 ml/min/1.73 sqM); Albumin 4.4 g/dL (3.5-5.0); Alkaline Phosphatase 92 U/L (38-126); Anion Gap 11 mmol/L; Blood Urea Nitrogen 11 mg/dL (7-17); Calcium 9.4 mg/dL (8.4-10.2); Carbon Dioxide 18 mmol/L (22-30); Chloride 108 mmol/L (98-107); Glucose 154 mg/dL (74-99); Lipase 152 U/L (23-300); Non-African American GFR(CKD) >90 (>60 ml/min/1.73 sqM); Potassium 3.7 mmol/L (3.5-5.1); Sodium 137 mmol/L (137-145); Total Bilirubin 0.7 mg/dL (0.2-1.3); Total Protein 7.1 g/dL (6.3-8.2)
[2022-06-17] MEDS ORDERED: MORPHINE SULFATE 4 MG/ML SYRINGE IV STA (22:32)
[2022-06-17] MEDS ORDERED: SODIUM CHLORIDE 0.9% 1,000 ML IV ONE (22:32)
[2022-06-17 22:43] LABS: Appearance,Urine Clear (Clear); Bilirubin,Urine Negative (Negative); Blood,Urine Large (Negative); Color,Urine Yellow; Glucose,Urine (UA) Negative (Negative); Ketones,Urine Negative (Negative); Leukocyte Esterase,Urine Trace (Negative); Mucus,Urine Rare /hpf; Nitrite,Urine Negative (Negative); Protein,Urine Trace (Negative); RBC,Urine >182 /hpf (0-5); Specific Gravity,Urine 1.012 (1.001-1.035); Squamous Epithelial Cell,Urine 3 /hpf (0-4); Urobilinogen,Urine <2.0 mg/dL (<2.0); WBC,Urine 3 /hpf (0-5)
[2022-06-17 23:24] LABS: Glucose,Whole Blood 60 mg/dL (70-110)
[2022-06-17 23:37] LABS: Glucose,Whole Blood 110 mg/dL (70-110)
[2022-06-18] MEDS ORDERED: MORPHINE SULFATE 4 MG/ML SYRINGE IV STA (00:39)
[2022-06-18 01:19] VITALS: BP 104/69; PULSE 91
== END 2022-06-18 01:05 | disposition home or self-care (01) ==
LOC: EC 20:25
DX: G89.29 Other chronic pain (principal); R10.9 Unspecified abdominal pain; H92.02 Otalgia, left ear; R11.2 Nausea with vomiting, unspecified; H69.82 Other specified disorders of Eustachian tube, left ear; E11.9 Type 2 diabetes mellitus without complications; I10 Essential (primary) hypertension; G40.909 Epilepsy, unspecified, not intractable, without status epilepticus; F41.9 Anxiety disorder, unspecified; F31.9 Bipolar disorder, unspecified; F17.200 Nicotine dependence, unspecified, uncomplicated; Z88.8 Allergy status to other drugs, medicaments and biological substances; Z88.1 Allergy status to other antibiotic agents; Z91.041 Radiographic dye allergy status; Z88.2 Allergy status to sulfonamides; Z88.0 Allergy status to penicillin; Z91.018 Allergy to other foods
CPT/HCPCS: 36415 ×2; 80053; 83605 ×2; 83690; 85025; 81001; 74018; 99284; 96365; 96375 ×3; 96361; 96376; J2270 ×2; J2405; J0131; J1885

== ENCOUNTER 2022-06-20 21:39 | Emergency (ER) | payer BC, OTHER ==
[2022-06-21 07:17] LABS: Appearance,Urine Cloudy (Clear); Bilirubin,Urine Negative (Negative); Blood,Urine Large (Negative); Calcium Oxalate Crystals,Urine Occasional /hpf; Color,Urine Light Red; Glucose,Urine (UA) Negative (Negative); Ketones,Urine Trace (Negative); Leukocyte Esterase,Urine Small (Negative); Mucus,Urine Rare /hpf; Nitrite,Urine Negative (Negative); Protein,Urine 1+ (Negative); RBC,Urine >182 /hpf (0-5); Specific Gravity,Urine 1.019 (1.001-1.035); Squamous Epithelial Cell,Urine 4 /hpf (0-4); Urobilinogen,Urine <2.0 mg/dL (<2.0); WBC,Urine 8 /hpf (0-5)
[2022-06-21] MEDS ORDERED: SODIUM CHLORIDE 0.9% 1,000 ML IV STA (07:19)
[2022-06-21] MEDS ORDERED: KETOROLAC 15 MG/ML 1 ML VIAL IVP STA (07:19)
[2022-06-21] MEDS ORDERED: ONDANSETRON 4 MG/2 ML VIAL IVP STA (07:19)
[2022-06-21] MEDS ORDERED: MORPHINE SULFATE 4 MG/ML SYRINGE IVP STA ×2 (07:19→09:01)
--- NOTE | 2022-06-21 07:50 | ED ---
Abdominal Pain HPI - General Chief Complaint: Abdominal Pain Stated Complaint: poss kidney stones Time Seen by Provider: 06/21/22 07:13 Source: patient, RN notes reviewed Mode of arrival: ambulatory - History of Present Illness Initial Comments: This is a 47-year-old female who presents to the emergency department for back pain. Patient is very well-known to this emergency department for chronic pain related to kidney stones. Currently complaining of right flank pain, which she states started 2-3 days ago. She has associated nausea and vomiting with this and just ran out of her Zofran. 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 Denies any fevers, chills, sore throat, cough, dyspnea, chest pain, palpitations, diarrhea, or headaches. MD Complaint: flank pain Onset/Timin -: days(s) Migration to: R flank - Related Data Home Medications Medication Instructions Recorded Confirmed oxyCODONE-APAP 10-325MG [Percocet 1 tab PO QID PRN 08/29/17 01/06/22 10-325 mg] PARoxetine HCL [Paxil] 40 mg PO DAILY 03/12/18 01/06/22 PARoxetine [Paxil] 20 mg PO DAILY 06/04/18 01/06/22 Loratadine 10 mg PO DAILY 04/21/20 01/06/22 Dapagliflozin Propanediol [Farxiga] 10 mg PO DAILY 12/07/21 01/06/22 Dextroamphetamine/Amphetamine 20 mg PO BID 12/07/21 01/06/22 [Dextroamp-Amphetamin 20 mg Tab] Glimepiride [Amaryl] 4 mg PO DAILY 12/07/21 01/06/22 Multivitamins, Thera [Multivitamin 1 tab PO DAILY 12/07/21 01/06/22 (formulary)] SUMAtriptan succinate [Imitrex] 100 mg PO DAILY PRN 12/07/21 01/06/22 Semaglutide [Rybelsus] 14 mg PO DAILY 01/06/22 01/06/22 Previous Rx's Medication Instructions Recorded Ondansetron Odt [Zofran Odt] 4 mg PO Q8H PRN #12 tab 01/06/22 Ondansetron Odt [Zofran Odt] 4 mg PO Q8HR PRN #15 tab 01/12/22 clindamycin HCL [Cleocin] 300 mg PO Q6HR #40 cap 01/21/22 Cephalexin [Keflex] 500 mg PO Q6HR #40 cap 02/21/22 Promethazine Suppository 25 mg RECTAL TID PRN #15 supp 02/21/22 [Phenergan] Cephalexin [Keflex] 500 mg PO Q12HR 5 Days #10 cap 02/27/22 Fluconazole [Diflucan] 150 mg PO ONCE #1 tab 02/27/22 Cefdinir 300 mg PO Q12HR #14 cap 05/14/22 Baclofen 10 mg PO TID PRN #20 tab 05/24/22 Phenazopyridine HCl [Pyridium] 100 mg PO TID PRN #6 tab 06/05/22 Ondansetron Odt [Zofran Odt] 4 mg PO Q8HR PRN #20 tab 06/21/22 Allergies Allergy/AdvReac Type Severity Reaction Status Date / Time bupropion HCl Allergy Rash/Hives Verified 06/20/22 22:15 [From Wellbutrin] divalproex sodium Allergy Unknown Verified 06/20/22 22:15 [From Depakote] fentanyl Allergy Swelling Verified 06/20/22 22:15 Iodinated Contrast Media Allergy Anaphylaxis Verified 06/20/22 22:15 [Iodinated Contrast Media - IV Dye] orange juice [[place]] Allergy Rash/Hives Verified 06/20/22 22:15 Sulfa (Sulfonamide Allergy Rash/Hives Verified 06/20/22 22:15 Antibiotics) Penicillins AdvReac Rash/Hives/Gi Verified 06/20/22 22:15 Upset Review of Systems ROS Statement: Those systems with pertinent positive or pertinent negative responses have been documented in the HPI. ROS Other: All systems not noted in ROS Statement are negative. 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 History of Any Multi-Drug Resistant Organisms: ESBL Date of last positivie culture/infection: 05/14/17 MDRO Source:: ESBL URINE, Past Surgical History: Bladder Surgery, Section, Cholecystectomy, Hysterectomy, Orthopedic Surgery, Tubal Ligation Additional Past Surgical History / Comment(s): R ovarian cystectomy, laparoscopic surgery for L ovary that had attached to the bowel, D&C, numerous lithotripsies, nephroscopies, cystoscopies and stents to ureters-none in place at this time, L robotic pyeloplasty with post op infection around kidney which then required a picc line/later removed (pt states was not MRSA), L rotator cuff repair, L wrist tendon surgery, colonoscopy. Kidney stone removal. Past Anesthesia/Blood Transfusion Reactions: Family History of Problems w/ Anesthesia Additional Past Anesthesia/Blood Transfusion Reaction / Comment(s): dad-hard time waking up due to enzyme problems in liver Past Psychological History: ADD/ADHD, Anxiety, Bipolar, Depression, PTSD Smoking Status: Current every day smoker Past Alcohol Use History: None Reported Past Drug Use History: None Reported - Past Family History Brother(s) Family Medical History: Cancer Additional Family Medical History / Comment(s): testicular Father Family Medical History: Coronary Artery Disease (CAD), CVA/TIA, Diabetes Mellitus, Renal Disease Additional Family Medical History / Comment(s): GLAUCOMA,NEUROPATHY HAD TRIPLE CABG, at 56yrs from renal disease. Mother Family Medical History: Hyperlipidemia Additional Family Medical History / Comment(s): DDD, HAD 3 vessel CABG AGE 54. General Exam General appearance: alert, in distress Head exam: Present: atraumatic, normocephalic, normal inspection Respiratory exam: Present: normal lung sounds bilaterally. Absent: respiratory distress, wheezes, rales, rhonchi, stridor Cardiovascular Exam: Present: regular rate, normal rhythm, normal heart sounds. Absent: systolic murmur, diastolic murmur, rubs, gallop, clicks GI/Abdominal exam: Present: soft, normal bowel sounds. Absent: distended, tenderness, guarding, rebound, rigid Back exam: Present: CVA tenderness (R) Neurological exam: Present: alert, oriented X3, CN II-XII intact Psychiatric exam: Present: normal affect, normal mood Course Vital Signs 06/20/22 06/21/22 22:13 10:03 Temperature 98.4 F 98.3 F Pulse Rate 100 78 Respiratory 16 18 Rate Blood Pressure 124/83 131/78 O2 Sat by Pulse 97 99 Oximetry Medical Decision Making - Medical Decision Making This is a 47-year-old female who presents to the emergency department for right flank pain. Was pt. sent in by a medical professional or institution? @ -No Did you speak to anyone other than the patient for history? @ -No Did you review nursing and triage notes? @ -Agree, accurate with regards to the patient's symptoms. Were old charts reviewed? @ -No Differential Diagnosis? @ -Differential Back Pain: Strain, zoster, cauda equina syndrome, epidural abscess, vertebral osteomyelitis, discitis, fracture, subluxation, disc herniation, DJD, spinal stenosis, dissection, AAA, pancreatitis, peptic ulcer disease, pyelonephritis, kidney stone, this is not meant to be an all-inclusive list. X-rays interpreted by me (1pt min.)? @ -KUB x-ray obtained, my interpretation identifies no signs of free air, bowel wall thickening, or renal calculus. What testing was considered but not performed? (CT, X-rays, U/S, labs)? Why? @ -There was consideration of a computed tomography scan of the abd/pelvis given the blood in her urine, however the patient almost always has blood in her urine and is usually found to have a kidney stone regardless, and this would not change the course of her management. What meds were considered but not given? Why? @ -None Did you discuss the management of the patient with other professionals? @ -No Did you reconcile home meds? @ -No Was smoking cessation discussed for >3mins.? @ -No Was critical care preformed (if so, how long)? @ -No Were there social determinants of health that impacted care today? How? (Homelessness, low income, unemployed, alcoholism, drug addiction, transportation, low edu. Level, literacy, decrease access to med. care, [facility], rehab)? @ -No Was there de-escalation of care discussed even if they declined? (Discuss DNR or withdrawal of care, Hospice)? @ -No What co-morbidities impacted this encounter? (DM, HTN, Smoking, COPD, CAD, Ca ncer, CVA, Hep., AIDS, mental health diagnosis, sleep apnea, morbid obesity)? @ -Diabetes and renal disease. Was patient admitted / discharged? @ -Discharged. KUB x-ray obtained and my interpretation is listed above. Lab work obtained and found to be nonactionable. Urinalysis does detect blood and no signs of an infection. Patient was given IV fluids and her pain and nausea were effectively managed in the emergency department. Refill on the Zofran was provided. Advised she remain well-hydrated and slowly advance her diet as tolerated. She'll continue alternating with ibuprofen and Tylenol as needed for pain relief and follow-up with her urologist as scheduled next week. Drug Therapy requiring intensive monitoring for toxicity (Heparin, Nitro, Insulin, Cardizem)? @ -None Were any procedures done? @ -None Diagnosis/symptom? @ -Right flank pain Acute, or Chronic, or Acute on Chronic? @ -acute on chronic Uncomplicated (without systemic symptoms) or Complicated (systemic symptoms)? @ -Complicated, she is experiencing associated nausea and vomiting. Side effects of treatment? @ -Adverse reaction to the medications administered in the emergency department Exacerbation, Progression, or Severe Exacerbation] @ -Not applicable Poses a threat to life or bodily function? @ -May impact her bodily function if she is limited by the pain. Return precautions reviewed in depth, the patient is instructed to return to the emergency department with any new, worsening, or concerning symptoms. Patient verbalized understanding. This case was discussed in detail with the attending ED physician. Presentation, findings, and treatment plan discussed in detail as well. - Lab Data Result diagrams: 06/21/22 08:42 06/21/22 08:42 Lab Results 06/21/22 06/21/22 06/21/22 Range/Units 06:54 06:54 08:42 WBC 10.5 (3.8-10.6) k/uL RBC 4.23 (3.80-5.40) m/uL Hgb 12.9 (11.4-16.0) gm/dL Hct 36.7 (34.0-46.0) % MCV 86.6 (80.0-100.0) fL MCH 30.3 (25.0-35.0) pg MCHC 35.0 (31.0-37.0) g/dL RDW 12.0 (11.5-15.5) % Plt Count 276 (150-450) k/uL MPV 7.5 Neutrophils % 60 % Lymphocytes % 32 % Monocytes % 5 % Eosinophils % 2 % Basophils % 0 % Neutrophils # 6.3 (1.3-7.7) k/uL Lymphocytes # 3.4 (1.0-4.8) k/uL Monocytes # 0.5 (0-1.0) k/uL Eosinophils # 0.2 (0-0.7) k/uL Basophils # 0.0 (0-0.2) k/uL Sodium (137-145) mmol/L Potassium (3.5-5.1) mmol/L Chloride (98-107) mmol/L Carbon Dioxide (22-30) mmol/L Anion Gap mmol/L BUN (7-17) mg/dL Creatinine (0.52-1.04) mg/dL Est GFR (CKD-EPI)AfAm (>60 ml/min/1.73 sqM) Est GFR (CKD-EPI)NonAf (>60 ml/min/1.73 sqM) Glucose (74-99) mg/dL Plasma Lactic Acid Brant (0.7-2.0) mmol/L Calcium (8.4-10.2) mg/dL Total Bilirubin (0.2-1.3) mg/dL AST (14-36) U/L ALT (4-34) U/L Alkaline Phosphatase (38-126) U/L Total Protein (6.3-8.2) g/dL Albumin (3.5-5.0) g/dL Urine Color Light Red Urine Appearance Cloudy H (Clear) Urine pH 6.0 (5.0-8.0) Ur Specific [place] 1.019 (1.001-1.035) Urine Protein 1+ H (Negative) Urine Glucose (UA) Negative (Negative) Urine Ketones Trace H (Negative) Urine Blood Large H (Negative) Urine Nitrite Negative (Negative) Urine Bilirubin Negative (Negative) Urine Urobilinogen <2.0 (<2.0) mg/dL Ur Leukocyte Esterase Small H (Negative) Urine RBC >182 H (0-5) /hpf Urine WBC 8 H (0-5) /hpf Ur Squamous Epith Cells 4 (0-4) /hpf Calcium Oxalate Crystal Occasional H (None) /hpf Urine Mucus Rare H (None) /hpf Urine HCG, Qual Not Detected (Not Detectd) 06/21/22 06/21/22 Range/Units 08:42 08:42 WBC (3.8-10.6) k/uL RBC (3.80-5.40) m/uL Hgb (11.4-16.0) gm/dL Hct (34.0-46.0) % MCV (80.0-100.0) fL MCH (25.0-35.0) pg MCHC (31.0-37.0) g/dL RDW (11.5-15.5) % Plt Count (150-450) k/uL MPV Neutrophils % % Lymphocytes % % Monocytes % % Eosinophils % % Basophils % % Neutrophils # (1.3-7.7) k/uL Lymphocytes # (1.0-4.8) k/uL Monocytes # (0-1.0) k/uL Eosinophils # (0-0.7) k/uL Basophils # (0-0.2) k/uL Sodium 139 (137-145) mmol/L Potassium 3.9 (3.5-5.1) mmol/L Chloride 113 H (98-107) mmol/L Carbon Dioxide 23 (22-30) mmol/L Anion Gap 3 mmol/L BUN 9 (7-17) mg/dL Creatinine 0.51 L (0.52-1.04) mg/dL Est GFR (CKD-EPI)AfAm >90 (>60 ml/min/1.73 sqM) Est GFR (CKD-EPI)NonAf >90 (>60 ml/min/1.73 sqM) Glucose 123 H (74-99) mg/dL Plasma Lactic Acid Brant 1.3 (0.7-2.0) mmol/L Calcium 8.0 L (8.4-10.2) mg/dL Total Bilirubin 0.5 (0.2-1.3) mg/dL AST 23 (14-36) U/L ALT 22 (4-34) U/L Alkaline Phosphatase 75 (38-126) U/L Total Protein 6.0 L (6.3-8.2) g/dL Albumin 3.5 (3.5-5.0) g/dL Urine Color Urine Appearance (Clear) Urine pH (5.0-8.0) Ur Specific [place] (1.001-1.035) Urine Protein (Negative) Urine Glucose (UA) (Negative) Urine Ketones (Negative) Urine Blood (Negative) Urine Nitrite (Negative) Urine Bilirubin (Negative) Urine Urobilinogen (<2.0) mg/dL Ur Leukocyte Esterase (Negative) Urine RBC (0-5) /hpf Urine WBC (0-5) /hpf Ur Squamous Epith Cells (0-4) /hpf Calcium Oxalate Crystal (None) /hpf Urine Mucus (None) /hpf Urine HCG, Qual (Not Detectd) - Radiology Data Radiology results: report reviewed, image reviewed Disposition Clinical Impression: Right flank pain Disposition: HOME SELF-CARE Instructions (If sedation given, give patient instructions): Flank Pain (ED) Additional Instructions: Return to the emergency department with any new, worsening, or concerning sympto ms. Alternate with ibuprofen and Tylenol for pain relief. Take the Zofran up to every 8 hours as needed for nausea and vomiting. Slowly advance your diet as tolerated and make sure that you remain well-hydrated. Follow up with your primary care provider in 1-2 days. Prescriptions: Ondansetron Odt [Zofran Odt] 4 mg PO Q8HR PRN #20 tab PRN Reason: Nausea And Vomiting Is patient prescribed a controlled substance at d/c from ED?: No Referrals: Rajiv Sexton MD [Primary Care Provider] - 1-2 days
--- NOTE | 2022-06-21 08:54 | XR ---
EXAMINATION TYPE: XR KUB DATE OF EXAM: 06/21/2022 7:45 AM INDICATION: Patient age:Female; 47 years old; Reason for study: Right flank pain; COMPARISON: 06/17/2022 TECHNIQUE: One radiographic view of the abdomen was obtained. FINDINGS: The bowel gas pattern is nonspecific without dilated loops of small or large bowel. There i s no evidence for organomegaly or pneumoperitoneum. The osseous structures are intact. No abnormal calcifications are present. Fecal material and gas are demonstrated throughout the colon and rectum. Right upper quadrant cholecystectomy clips. Mild scoliosis changes. IMPRESSION: Nonspecific bowel gas pattern without radiographic evidence for acute process.
[2022-06-21] MEDS ORDERED: ACETAMINOPHEN IV (For NPO) 1,000 MG in EMPTY BAG 1 BAG IVPB STA (09:03)
[2022-06-21] MEDS ORDERED: ACETAMINOPHEN TAB 500 MG TAB PO STA (09:03)
[2022-06-21 09:08] LABS: Basophils % (A) 0 %; Eosinophils # (A) 0.2 k/uL (0-0.7); Eosinophils % (A) 2 %; HCT 36.7 % (34.0-46.0); HGB 12.9 gm/dL (11.4-16.0); Lymphocytes # (A) 3.4 k/uL (1.0-4.8); Lymphocytes % (A) 32 %; MCH 30.3 pg (25.0-35.0); MCV 86.6 fL (80.0-100.0); Mean Platelet Volume 7.5; Monocytes # (A) 0.5 k/uL (0-1.0); Monocytes % (A) 5 %; Neutrophils # (A) 6.3 k/uL (1.3-7.7); Neutrophils % (A) 60 %; Platelet Count 276 k/uL (150-450); RBC 4.23 m/uL (3.80-5.40); WBC 10.5 k/uL (3.8-10.6)
[2022-06-21 09:21] LABS: ALT 22 U/L (4-34); AST 23 U/L (14-36); African American GFR (CKD) >90 (>60 ml/min/1.73 sqM); Albumin 3.5 g/dL (3.5-5.0); Alkaline Phosphatase 75 U/L (38-126); Anion Gap 3 mmol/L; Blood Urea Nitrogen 9 mg/dL (7-17); Carbon Dioxide 23 mmol/L (22-30); Chloride 113 mmol/L (98-107); Glucose 123 mg/dL (74-99); Non-African American GFR(CKD) >90 (>60 ml/min/1.73 sqM); Potassium 3.9 mmol/L (3.5-5.1); Sodium 139 mmol/L (137-145); Total Bilirubin 0.5 mg/dL (0.2-1.3)
[2022-06-21 10:03] VITALS: BP 131/78; PULSE 78; RESP 18; TEMP 98.3
== END 2022-06-21 10:04 | disposition home or self-care (01) ==
LOC: EC 21:39
DX: R10.9 Unspecified abdominal pain (principal); E11.9 Type 2 diabetes mellitus without complications; I10 Essential (primary) hypertension; F41.9 Anxiety disorder, unspecified; F31.9 Bipolar disorder, unspecified; F17.200 Nicotine dependence, unspecified, uncomplicated; Z88.8 Allergy status to other drugs, medicaments and biological substances; Z88.6 Allergy status to analgesic agent; Z91.041 Radiographic dye allergy status; Z88.2 Allergy status to sulfonamides; Z88.0 Allergy status to penicillin; Z91.018 Allergy to other foods
CPT/HCPCS: 36415; 80053; 83605; 85025; 81001; 81025; 74018; 99284; 96374; 96375 ×2; 96376; 96361; J2270; J2405; J1885

== ENCOUNTER 2022-07-05 22:14 | Emergency (ER) | payer BC, OTHER ==
[2022-07-05 22:40] VITALS: BP 122/70; PULSE 94; RESP 16; TEMP 97.6
[2022-07-05] MEDS ORDERED: ONDANSETRON 4 MG/2 ML VIAL IVP STA (22:55)
[2022-07-05] MEDS ORDERED: SODIUM CHLORIDE 0.9% 1,000 ML IV STA (22:55)
[2022-07-05] MEDS ORDERED: MORPHINE SULFATE 4 MG/ML SYRINGE IVP STA (22:56)
--- NOTE | 2022-07-05 23:26 | ED ---
Abdominal Pain HPI - General Chief Complaint: Abdominal Pain Stated Complaint: Kidney stones Time Seen by Provider: 07/05/22 22:43 Source: patient Mode of arrival: ambulatory - History of Present Illness Initial Comments: Patient is a 47-year-old female presenting with chief complaint of flank pain. Patient is well-known to our ER. Patient has a known kidney stone on the right side which she states is either 4 or 5 cm. She states that her urologist previously had plans to use lithotripsy, but now plans to have it pass on its own. She was seen at the walk-in clinic today and was given Toradol, Zofran. At home she took Flomax and Percocet. She denies any abdominal pain, dysuria, fever, chills, as pain, difficulty breathing, palpitations, weakness. - Related Data Home Medications Medication Instructions Recorded Confirmed oxyCODONE-APAP 10-325MG [Percocet 1 tab PO QID PRN 08/29/17 01/06/22 10-325 mg] PARoxetine HCL [Paxil] 40 mg PO DAILY 03/12/18 01/06/22 PARoxetine [Paxil] 20 mg PO DAILY 06/04/18 01/06/22 Loratadine 10 mg PO DAILY 04/21/20 01/06/22 Dapagliflozin Propanediol [Farxiga] 10 mg PO DAILY 12/07/21 01/06/22 Dextroamphetamine/Amphetamine 20 mg PO BID 12/07/21 01/06/22 [Dextroamp-Amphetamin 20 mg Tab] Glimepiride [Amaryl] 4 mg PO DAILY 12/07/21 01/06/22 Multivitamins, Thera [Multivitamin 1 tab PO DAILY 12/07/21 01/06/22 (formulary)] SUMAtriptan succinate [Imitrex] 100 mg PO DAILY PRN 12/07/21 01/06/22 Semaglutide [Rybelsus] 14 mg PO DAILY 01/06/22 01/06/22 Previous Rx's Medication Instructions Recorded Ondansetron Odt [Zofran Odt] 4 mg PO Q8H PRN #12 tab 01/06/22 Ondansetron Odt [Zofran Odt] 4 mg PO Q8HR PRN #15 tab 01/12/22 clindamycin HCL [Cleocin] 300 mg PO Q6HR #40 cap 01/21/22 Cephalexin [Keflex] 500 mg PO Q6HR #40 cap 02/21/22 Promethazine Suppository 25 mg RECTAL TID PRN #15 supp 02/21/22 [Phenergan] Cephalexin [Keflex] 500 mg PO Q12HR 5 Days #10 cap 02/27/22 Fluconazole [Diflucan] 150 mg PO ONCE #1 tab 02/27/22 Cefdinir 300 mg PO Q12HR #14 cap 05/14/22 Baclofen 10 mg PO TID PRN #20 tab 05/24/22 Phenazopyridine HCl [Pyridium] 100 mg PO TID PRN #6 tab 06/05/22 Ondansetron Odt [Zofran Odt] 4 mg PO Q8HR PRN #20 tab 06/21/22 Allergies Allergy/AdvReac Type Severity Reaction Status Date / Time bupropion HCl Allergy Rash/Hives Verified 07/05/22 22:40 [From Wellbutrin] divalproex sodium Allergy Unknown Verified 07/05/22 22:40 [From Depakote] fentanyl Allergy Swelling Verified 07/05/22 22:40 Iodinated Contrast Media Allergy Anaphylaxis Verified 07/05/22 22:40 [Iodinated Contrast Media - IV Dye] orange juice [[place]] Allergy Rash/Hives Verified 07/05/22 22:40 Sulfa (Sulfonamide Allergy Rash/Hives Verified 07/05/22 22:40 Antibiotics) Penicillins AdvReac Rash/Hives/Gi Verified 07/05/22 22:40 Upset Review of Systems ROS Statement: Those systems with pertinent positive or pertinent negative responses have been documented in the HPI. ROS Other: All systems not noted in ROS Statement are negative. 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 History of Any Multi-Drug Resistant Organisms: ESBL Date of last positivie culture/infection: 05/14/17 MDRO Source:: ESBL URINE, Past Surgical History: Bladder Surgery, Section, Cholecystectomy, Hysterectomy, Orthopedic Surgery, Tubal Ligation Additional Past Surgical History / Comment(s): R ovarian cystectomy, laparoscopic surgery for L ovary that had attached to the bowel, D&C, numerous lithotripsies, nephroscopies, cystoscopies and stents to ureters-none in place at this time, L robotic pyeloplasty with post op infection around kidney which then required a picc line/later removed (pt states was not MRSA), L rotator cuff repair, L wrist tendon surgery, colonoscopy. Kidney stone removal. Past Anesthesia/Blood Transfusion Reactions: Family History of Problems w/ Anesthesia Additional Past Anesthesia/Blood Transfusion Reaction / Comment(s): dad-hard time waking up due to enzyme problems in liver Past Psychological History: ADD/ADHD, Anxiety, Bipolar, Depression, PTSD Smoking Status: Current every day smoker Past Alcohol Use History: None Reported Past Drug Use History: None Reported - Past Family History Brother(s) Family Medical History: Cancer Additional Family Medical History / Comment(s): testicular Father Family Medical History: Coronary Artery Disease (CAD), CVA/TIA, Diabetes Mellitus, Renal Disease Additional Family Medical History / Comment(s): GLAUCOMA,NEUROPATHY HAD TRIPLE CABG, at 56yrs from renal disease. Mother Family Medical History: Hyperlipidemia Additional Family Medical History / Comment(s): DDD, HAD 3 vessel CABG AGE 54. General Exam Limitations: no limitations General appearance: alert, in no apparent distress Head exam: Present: atraumatic, normocephalic, normal inspection Eye exam: Present: normal appearance Neck exam: Present: normal inspection Respiratory exam: Present: normal lung sounds bilaterally. Absent: respiratory distress, wheezes, rales, rhonchi, stridor Cardiovascular Exam: Present: regular rate, normal rhythm, normal heart sounds. Absent: systolic murmur, diastolic murmur, rubs, gallop, clicks Back exam: Present: CVA tenderness (R). Absent: CVA tenderness (L) Neurological exam: Present: alert, oriented X3, CN II-XII intact Psychiatric exam: Present: normal affect, normal mood Skin exam: Present: warm, dry, intact, normal color. Absent: rash Course Vital Signs 07/05/22 22:38 Temperature 97.6 F Pulse Rate 94 Respiratory 16 Rate Blood Pressure 122/70 O2 Sat by Pulse 97 Oximetry Medical Decision Making - Medical Decision Making Was pt. sent in by a medical professional or institution (STUART Yeager, [employer], urgent care, hospital, or penitentiary...) When possible be specific @ -No Did you speak to anyone other than the patient for history (EMS, parent, family, police, friend...)? What history was obtained from this source @ -No Did you review nursing and triage notes (agree or disagree)? Why? @ -I reviewed and agree with nursing and triage notes Were old charts reviewed (outside hosp., previous admission, EMS record, old EKG, old radiological studies, urgent care reports/EKG's, penitentiary records)? Report findings @ -Previous visits were reviewed Differential Diagnosis (chest pain, altered mental status, abdominal pain women, abdominal pain men, vaginal bleeding, weakness, fever, dyspnea, syncope, headache, dizziness, GI bleed, back pain, seizure, CVA, palpatations, mental health)? @ -Differential includes kidney stone, pyelonephritis, mechanical back pain, this is not meant to be an all emcompassing list EKG interpreted by me (3pts min.). @ -None X-rays interpreted by me (1pt min.). @ -KUB x-ray shows no acute process CT interpreted by me (1pt min.). @ -None done U/S interpreted by me (1pt. min.). @ -None done What testing was considered but not performed or refused? (CT, X-rays, U/S, labs)? Why? @ -None What meds were considered but not given or refused? Why? @ -None Did you discuss the management of the patient with other professionals (professionals i.e. STUART Yeager, ASSIST[employer]ACH, lab, RT, psych nurse, social welfare administrator, pan washer, teacher, residential care officer, adult protective caseworker)? Give summary @ -No Was smoking cessation discussed for >3mins.? @ -No Was critical care preformed (if so, how long)? @ -No Were there social determinants of health that impacted care today? How? (Homelessness, low income, unemployed, alcoholism, drug addiction, transportation, low edu. Level, literacy, decrease access to med. care, half-way, rehab)? @ -No Was there de-escalation of care discussed even if they declined (Discuss DNR or withdrawal of care, Hospice)? DNR status @ -No What co-morbidities impacted this encounter? (DM, HTN, Smoking, COPD, CAD, Cancer, CVA, ARF, Chemo, Hep., AIDS, mental health diagnosis, sleep apnea, morbid obesity)? @ -None Was patient admitted / discharged? Hospital course, mention meds given and route, prescriptions, significant lab abnormalities, going to OR and other pertinent info. @ -Patient is a 47-year-old female presenting with chief complaint of right- sided flank pain. She is well known to our ER. She has been seen here previously for the same complaint. Patient has known kidney stones on the right side. On physical examination there is some CVA tenderness. Patient follows with a urologist. Lab work shows WBC 10.9, likely reactive as patient admits to vomiting. CMP is grossly unremarkable. Urine is positive for blood, cons istent with kidney stone presentation. No signs of infection. Patient is given morphine, Toradol, and Zofran. She'll be discharged home and instructed to follow-up with her urologist.Follow-up with PCP. Report back to ER with any new or worsening symptoms. Discussed return parameters and answered all questions. Patient conveyed verbal understanding and agreed to the plan. I discussed this case in detail with my attending Dr. Linda Undiagnosed new problem with uncertain prognosis? @ -No Drug Therapy requiring intensive monitoring for toxicity (Heparin, Nitro, Insulin, Cardizem)? @ -No Were any procedures done? @ -No Diagnosis/symptom? @ -Nephrolithiasis Acute, or Chronic, or Acute on Chronic? @ -Chronic Uncomplicated (without systemic symptoms) or Complicated (systemic symptoms)? @ -[Uncomplicated Side effects of treatment? @ -No Exacerbation, Progression, or Severe Exacerbation? @ -No Poses a threat to life or bodily function? How? (Chest pain, [place], [place], pneumonia, PE, COPD, DKA, ARF, appy, cholecystitis, CVA, Diverticulitis, Homicidal, Suicidal, threat to staff... and all critical care pts) @ -No - Lab Data Result diagrams: 07/05/22 23:20 07/05/22 23:20 Lab Results 07/05/22 07/05/22 07/05/22 Range/Units 23:20 23:20 23:20 WBC 10.9 H (3.8-10.6) k/uL RBC 4.86 (3.80-5.40) m/uL Hgb 14.3 (11.4-16.0) gm/dL Hct 41.2 (34.0-46.0) % MCV 84.8 (80.0-100.0) fL MCH 29.5 (25.0-35.0) pg MCHC 34.7 (31.0-37.0) g/dL RDW 12.2 (11.5-15.5) % Plt Count 264 (150-450) k/uL MPV 7.3 Neutrophils % 44 % Lymphocytes % 45 % Monocytes % 5 % Eosinophils % 4 % Basophils % 1 % Neutrophils # 4.7 (1.3-7.7) k/uL Lymphocytes # 4.9 H (1.0-4.8) k/uL Monocytes # 0.6 (0-1.0) k/uL Eosinophils # 0.5 (0-0.7) k/uL Basophils # 0.1 (0-0.2) k/uL Sodium (137-145) mmol/L Potassium (3.5-5.1) mmol/L Chloride (98-107) mmol/L Carbon Dioxide (22-30) mmol/L Anion Gap mmol/L BUN (7-17) mg/dL Creatinine (0.52-1.04) mg/dL Est GFR (CKD-EPI)AfAm (>60 ml/min/1.73 sqM) Est GFR (CKD-EPI)NonAf (>60 ml/min/1.73 sqM) Glucose (74-99) mg/dL Calcium (8.4-10.2) mg/dL Total Bilirubin (0.2-1.3) mg/dL AST (14-36) U/L ALT (4-34) U/L Alkaline Phosphatase (38-126) U/L Total Protein (6.3-8.2) g/dL Albumin (3.5-5.0) g/dL Urine Color Yellow Urine Appearance Clear (Clear) Urine pH 5.5 (5.0-8.0) Ur Specific [place] 1.031 (1.001-1.035) Urine Protein Negative (Negative) Urine Glucose (UA) 4+ H (Negative) Urine Ketones Negative (Negative) Urine Blood Large H (Negative) Urine Nitrite Negative (Negative) Urine Bilirubin Negative (Negative) Urine Urobilinogen <2.0 (<2.0) mg/dL Ur Leukocyte Esterase Negative (Negative) Urine RBC >182 H (0-5) /hpf Urine WBC 2 (0-5) /hpf Ur Squamous Epith Cells 4 (0-4) /hpf Urine Bacteria Rare H (None) /hpf Urine Mucus Rare H (None) /hpf Urine HCG, Qual Not Detected (Not Detectd) 07/05/22 Range/Units 23:20 WBC (3.8-10.6) k/uL RBC (3.80-5.40) m/uL Hgb (11.4-16.0) gm/dL Hct (34.0-46.0) % MCV (80.0-100.0) fL MCH (25.0-35.0) pg MCHC (31.0-37.0) g/dL RDW (11.5-15.5) % Plt Count (150-450) k/uL MPV Neutrophils % % Lymphocytes % % Monocytes % % Eosinophils % % Basophils % % Neutrophils # (1.3-7.7) k/uL Lymphocytes # (1.0-4.8) k/uL Monocytes # (0-1.0) k/uL Eosinophils # (0-0.7) k/uL Basophils # (0-0.2) k/uL Sodium 137 (137-145) mmol/L Potassium 4.4 (3.5-5.1) mmol/L Chloride 105 (98-107) mmol/L Carbon Dioxide 23 (22-30) mmol/L Anion Gap 9 mmol/L BUN 16 (7-17) mg/dL Creatinine 0.51 L (0.52-1.04) mg/dL Est GFR (CKD-EPI)AfAm >90 (>60 ml/min/1.73 sqM) Est GFR (CKD-EPI)NonAf >90 (>60 ml/min/1.73 sqM) Glucose 149 H (74-99) mg/dL Calcium 9.4 (8.4-10.2) mg/dL Total Bilirubin 0.6 (0.2-1.3) mg/dL AST 26 (14-36) U/L ALT 28 (4-34) U/L Alkaline Phosphatase 79 (38-126) U/L Total Protein 7.2 (6.3-8.2) g/dL Albumin 4.3 (3.5-5.0) g/dL Urine Color Urine Appearance (Clear) Urine pH (5.0-8.0) Ur Specific [place] (1.001-1.035) Urine Protein (Negative) Urine Glucose (UA) (Negative) Urine Ketones (Negative) Urine Blood (Negative) Urine Nitrite (Negative) Urine Bilirubin (Negative) Urine Urobilinogen (<2.0) mg/dL Ur Leukocyte Esterase (Negative) Urine RBC (0-5) /hpf Urine WBC (0-5) /hpf Ur Squamous Epith Cells (0-4) /hpf Urine Bacteria (None) /hpf Urine Mucus (None) /hpf Urine HCG, Qual (Not Detectd) Disposition Clinical Impression: Right flank pain, Nephrolithiasis Disposition: HOME SELF-CARE Condition: Good Instructions (If sedation given, give patient instructions): Kidney Stones (ED), Flank Pain (ED) Additional Instructions: Follow-up with PCP and urologist. Report back to ER with any new or worsening symptoms. Is patient prescribed a controlled substance at d/c from ED?: No Referrals: Rajiv Sexton MD [Primary Care Provider] - 1-2 days Time of Disposition: 00:29
[2022-07-05 23:48] LABS: Basophils # (A) 0.1 k/uL (0-0.2); Basophils % (A) 1 %; Eosinophils # (A) 0.5 k/uL (0-0.7); Eosinophils % (A) 4 %; HCT 41.2 % (34.0-46.0); HGB 14.3 gm/dL (11.4-16.0); Lymphocytes # (A) 4.9 k/uL (1.0-4.8); Lymphocytes % (A) 45 %; MCH 29.5 pg (25.0-35.0); MCHC 34.7 g/dL (31.0-37.0); MCV 84.8 fL (80.0-100.0); Mean Platelet Volume 7.3; Monocytes # (A) 0.6 k/uL (0-1.0); Monocytes % (A) 5 %; Neutrophils # (A) 4.7 k/uL (1.3-7.7); Neutrophils % (A) 44 %; Platelet Count 264 k/uL (150-450); RBC 4.86 m/uL (3.80-5.40); RDW 12.2 % (11.5-15.5); WBC 10.9 k/uL (3.8-10.6)
[2022-07-05 23:59] LABS: ALT 28 U/L (4-34); AST 26 U/L (14-36); African American GFR (CKD) >90 (>60 ml/min/1.73 sqM); Albumin 4.3 g/dL (3.5-5.0); Alkaline Phosphatase 79 U/L (38-126); Anion Gap 9 mmol/L; Blood Urea Nitrogen 16 mg/dL (7-17); Calcium 9.4 mg/dL (8.4-10.2); Carbon Dioxide 23 mmol/L (22-30); Chloride 105 mmol/L (98-107); Glucose 149 mg/dL (74-99); Non-African American GFR(CKD) >90 (>60 ml/min/1.73 sqM); Sodium 137 mmol/L (137-145); Total Bilirubin 0.6 mg/dL (0.2-1.3); Total Protein 7.2 g/dL (6.3-8.2)
[2022-07-06 00:05] LABS: Appearance,Urine Clear (Clear); Bacteria,Urine Rare /hpf; Bilirubin,Urine Negative (Negative); Blood,Urine Large (Negative); Color,Urine Yellow; Glucose,Urine (UA) 4+ (Negative); Ketones,Urine Negative (Negative); Leukocyte Esterase,Urine Negative (Negative); Mucus,Urine Rare /hpf; Nitrite,Urine Negative (Negative); PH, Urine 5.5 (5.0-8.0); Protein,Urine Negative (Negative); RBC,Urine >182 /hpf (0-5); Specific Gravity,Urine 1.031 (1.001-1.035); Squamous Epithelial Cell,Urine 4 /hpf (0-4); Urobilinogen,Urine <2.0 mg/dL (<2.0); WBC,Urine 2 /hpf (0-5)
--- NOTE | 2022-07-06 00:16 | XR ---
EXAMINATION TYPE: XR KUB DATE OF EXAM: 07/05/2022 COMPARISON: 06/21/2022 HISTORY: Abdominal pain TECHNIQUE: 2 views upright FINDINGS: There is no sign of intestinal obstruction or pneumoperitoneum. Fecal pattern is normal. Th ere are no pathologic calcifications over the kidneys. There are clips from cholecystectomy. The lung bases are clear. Bony structures are intact. IMPRESSION: Nonacute abdomen. No evidence of a renal calculus. No adverse change.
[2022-07-06 00:18] LABS: Potassium 4.4 mmol/L (3.5-5.1)
[2022-07-06] MEDS ORDERED: KETOROLAC 15 MG/ML 1 ML VIAL IVP STA (00:33)
== END 2022-07-06 00:56 | disposition home or self-care (01) ==
LOC: EC 22:14
DX: N20.0 Calculus of kidney (principal); E11.9 Type 2 diabetes mellitus without complications; I10 Essential (primary) hypertension; F41.9 Anxiety disorder, unspecified; F31.9 Bipolar disorder, unspecified; F17.200 Nicotine dependence, unspecified, uncomplicated; Z88.8 Allergy status to other drugs, medicaments and biological substances; Z88.2 Allergy status to sulfonamides; Z88.0 Allergy status to penicillin; Z79.899 Other long term (current) drug therapy
CPT/HCPCS: 36415; 80053; 85025; 81001; 81025; 74018; 99284; 96374; 96375 ×2; 96361; J2270; J2405; J1885

== ENCOUNTER 2022-07-08 21:16 | Emergency (ER) | payer BC, OTHER ==
[2022-07-08 21:23] VITALS: BP 117/72; PULSE 112; RESP 18; TEMP 97
[2022-07-08] MEDS ORDERED: SODIUM CHLORIDE 0.9% 1,000 ML IV STA (21:49)
[2022-07-08] MEDS ORDERED: diphenhydrAMINE 50 MG/ML 1 ML VIAL IVP STA (21:49)
[2022-07-08] MEDS ORDERED: PROCHLORPERAZINE INJ 10 MG/2 ML VIAL IVP STA (21:49)
[2022-07-08] MEDS ORDERED: HYDROmorphone 1 MG/ML 1 ML SYRINGE IVP STA (21:49)
--- NOTE | 2022-07-08 21:54 | ED ---
Recheck HPI - General Chief Complaint: Abdominal Pain Stated Complaint: kidney stone Time Seen by Provider: 07/08/22 21:34 Source: patient, RN notes reviewed, old records reviewed Mode of arrival: ambulatory Limitations: no limitations - History of Present Illness Initial Comments: This is a 47-year-old female to the ER for evaluation. Patient is presented today for evaluation of abdominal pain acute on chronic flank pain stone pain. Patient has history of all the above. Patient states her nausea vomiting is increased today and she is unable to keep down medications at home. She is without fever or new complaints she is having blood in the urine which is a daily issue for her. No new symptoms MD Complaint: other (Increasing pain secondary to nausea vomiting unable to keep down medications at home) -: hour(s) Returns Today for: persistent/worsening pain related to initial visit, other (Increasing nausea vomiting) Symptoms Since Prior Visit: worsening pain Context: planned re-check Associated Symptoms: nausea Treatments Prior to Arrival: Given Pain Meds on - Related Data Home Medications Medication Instructions Recorded Confirmed oxyCODONE-APAP 10-325MG [Percocet 1 tab PO QID PRN 08/29/17 01/06/22 10-325 mg] PARoxetine HCL [Paxil] 40 mg PO DAILY 03/12/18 01/06/22 PARoxetine [Paxil] 20 mg PO DAILY 06/04/18 01/06/22 Loratadine 10 mg PO DAILY 04/21/20 01/06/22 Dapagliflozin Propanediol [Farxiga] 10 mg PO DAILY 12/07/21 01/06/22 Dextroamphetamine/Amphetamine 20 mg PO BID 12/07/21 01/06/22 [Dextroamp-Amphetamin 20 mg Tab] Glimepiride [Amaryl] 4 mg PO DAILY 12/07/21 01/06/22 Multivitamins, Thera [Multivitamin 1 tab PO DAILY 12/07/21 01/06/22 (formulary)] SUMAtriptan succinate [Imitrex] 100 mg PO DAILY PRN 12/07/21 01/06/22 Semaglutide [Rybelsus] 14 mg PO DAILY 01/06/22 01/06/22 Previous Rx's Medication Instructions Recorded Ondansetron Odt [Zofran Odt] 4 mg PO Q8H PRN #12 tab 01/06/22 Ondansetron Odt [Zofran Odt] 4 mg PO Q8HR PRN #15 tab 01/12/22 clindamycin HCL [Cleocin] 300 mg PO Q6HR #40 cap 01/21/22 Cephalexin [Keflex] 500 mg PO Q6HR #40 cap 02/21/22 Promethazine Suppository 25 mg RECTAL TID PRN #15 supp 02/21/22 [Phenergan] Cephalexin [Keflex] 500 mg PO Q12HR 5 Days #10 cap 02/27/22 Fluconazole [Diflucan] 150 mg PO ONCE #1 tab 02/27/22 Cefdinir 300 mg PO Q12HR #14 cap 05/14/22 Baclofen 10 mg PO TID PRN #20 tab 05/24/22 Phenazopyridine HCl [Pyridium] 100 mg PO TID PRN #6 tab 06/05/22 Ondansetron Odt [Zofran Odt] 4 mg PO Q8HR PRN #20 tab 06/21/22 Allergies Allergy/AdvReac Type Severity Reaction Status Date / Time bupropion HCl Allergy Rash/Hives Verified 07/08/22 21:21 [From Wellbutrin] divalproex sodium Allergy Unknown Verified 07/08/22 21:21 [From Depakote] fentanyl Allergy Swelling Verified 07/08/22 21:21 Iodinated Contrast Media Allergy Anaphylaxis Verified 07/08/22 21:21 [Iodinated Contrast Media - IV Dye] orange juice [[place]] Allergy Rash/Hives Verified 07/08/22 21:21 Sulfa (Sulfonamide Allergy Rash/Hives Verified 07/08/22 21:21 Antibiotics) Penicillins AdvReac Rash/Hives/Gi Verified 07/08/22 21:21 Upset Review of Systems ROS Statement: Those systems with pertinent positive or pertinent negative responses have been documented in the HPI. ROS Other: All systems not noted in ROS Statement are negative. 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 History of Any Multi-Drug Resistant Organisms: ESBL Date of last positivie culture/infection: 05/14/17 MDRO Source:: ESBL URINE, Past Surgical History: Bladder Surgery, Section, Cholecystectomy, Hysterectomy, Orthopedic Surgery, Tubal Ligation Additional Past Surgical History / Comment(s): R ovarian cystectomy, laparoscopic surgery for L ovary that had attached to the bowel, D&C, numerous lithotripsies, nephroscopies, cystoscopies and stents to ureters-none in place at this time, L robotic pyeloplasty with post op infection around kidney which then required a picc line/later removed (pt states was not MRSA), L rotator cuff repair, L wrist tendon surgery, colonoscopy. Kidney stone removal. Past Anesthesia/Blood Transfusion Reactions: Family History of Problems w/ Anesthesia Additional Past Anesthesia/Blood Transfusion Reaction / Comment(s): dad-hard time waking up due to enzyme problems in liver Past Psychological History: ADD/ADHD, Anxiety, Bipolar, Depression, PTSD Smoking Status: Current every day smoker Past Alcohol Use History: None Reported Past Drug Use History: None Reported - Past Family History Brother(s) Family Medical History: Cancer Additional Family Medical History / Comment(s): testicular Father Family Medical History: Coronary Artery Disease (CAD), CVA/TIA, Diabetes Me llitus, Renal Disease Additional Family Medical History / Comment(s): GLAUCOMA,NEUROPATHY HAD TRIPLE CABG, at 56yrs from renal disease. Mother Family Medical History: Hyperlipidemia Additional Family Medical History / Comment(s): DDD, HAD 3 vessel CABG AGE 54. General Exam Limitations: no limitations General appearance: alert, in no apparent distress Head exam: Present: atraumatic, normocephalic, normal inspection Eye exam: Present: normal appearance, PERRL, EOMI. Absent: scleral icterus, conjunctival injection, periorbital swelling ENT exam: Present: normal exam, mucous membranes moist Neck exam: Present: normal inspection. Absent: tenderness, meningismus, lymphadenopathy Respiratory exam: Present: normal lung sounds bilaterally. Absent: respiratory distress, wheezes, rales, rhonchi, stridor Cardiovascular Exam: Present: regular rate, normal rhythm, normal heart sounds. Absent: systolic murmur, diastolic murmur, rubs, gallop, clicks GI/Abdominal exam: Present: soft, normal bowel sounds. Absent: distended, tenderness, guarding, rebound, rigid Extremities exam: Present: normal inspection, full ROM, normal capillary refill. Absent: tenderness, pedal edema, joint swelling, calf tenderness Back exam: Present: normal inspection Neurological exam: Present: alert, oriented X3, CN II-XII intact Psychiatric exam: Present: normal affect, normal mood Skin exam: Present: warm, dry, intact, normal color. Absent: rash Course Vital Signs 07/08/22 21:21 Temperature 97.0 F L Pulse Rate 112 H Respiratory 18 Rate Blood Pressure 117/72 O2 Sat by Pulse 100 Oximetry - Reevaluation(s) Reevaluation #1: 07/08/22 21:52 Medical record is reviewed Reevaluation #2: 07/08/22 21:52 Patient symptoms are improved Reevaluation #3: 07/08/22 21:52 Patient informed of results and questions answered Reevaluation #4: 07/08/22 21:52 Differential Abdominal Pain Women: Appendicitis, Cholecystitis, diverticulosis, ischemic bowel, pancreatitis, hepatitis, UTI, gastroenteritis, AAA, incarcerated hernia, bowel obstruction, constipation, inflammatory bowel, hepatitis, peptic ulcer disease, splenic infarction, perforated viscus, vulvitis, ovarian torsion, PID, kidney stone, placenta abruption, this is not meant to be an all-inclusive list Reevaluation #5: 07/08/22 21:52 Was pt. sent in by a medical professional or institution? @ -no Did you speak to anyone other than the patient for history? @ -dominique Did you review nursing and triage notes? @ -agree Were old charts reviewed? @ -yes prior ed visits here Differential Diagnosis? @ -prior EKG interpreted by me (3pts min.)? @ -[none] X-rays interpreted by me (1pt min.)? @ -[none] CT interpreted by me (1pt min.)? @ -[none] U/S interpreted by me (1pt. min.)? @ -[none] What testing was considered but not performed? (CT, X-rays, U/S, labs)? Why? @ no What meds were considered but not given? Why? @ -[none] Did you discuss the management of the patient with other professionals? @ -no Did you reconcile home meds? @ -[none] Was smoking cessation discussed for >3mins.? @ -[none] Was critical care preformed (if so, how long)? @ -[none] Were there social determinants of health that impacted care today? How? (Homelessness, low income, unemployed, alcoholism, drug addiction, transportation, low edu. Level, literacy, decrease access to med. care, usp, rehab)? @ -no Was there de-escalation of care discussed even if they declined? (Discuss DNR or withdrawal of care, Hospice)? @ -no What co-morbidities impacted this encounter? (DM, HTN, Smoking, COPD, CAD, Cancer, CVA, Hep., AIDS, mental health diagnosis, sleep apnea, morbid obesity)? @ -no Was patient admitted / discharged? @ -dc Undiagnosed new problem with uncertain prognosis? @ -[none] Drug Therapy requiring intensive monitoring for toxicity (Heparin, Nitro, Insulin, Cardizem)? @ -[none] Were any procedures done? @ -[none] Diagnosis/symptom? @ -[default] Acute, or Chronic, or Acute on Chronic? @ -[default] Uncomplicated (without systemic symptoms) or Complicated (systemic symptoms)? @ -[default] Side effects of treatment? @ -[none] Exacerbation, Progression, or Severe Exacerbation] @ -[no] Poses a threat to life or bodily function? @ -[no] Medical Decision Making - Medical Decision Making 47 female with acute on chronic abdominal pain flank pain intractable nausea vomiting. Patient at this point is feeling improved and can be discharged home - Lab Data Result diagrams: 07/08/22 21:56 07/08/22 21:56 Lab Results 07/08/22 07/08/22 07/08/22 Range/Units 21:56 21:56 21:56 WBC 12.9 H (3.8-10.6) k/uL RBC 5.22 (3.80-5.40) m/uL Hgb 15.1 (11.4-16.0) gm/dL Hct 43.7 (34.0-46.0) % MCV 83.8 (80.0-100.0) fL MCH 28.9 (25.0-35.0) pg MCHC 34.6 (31.0-37.0) g/dL RDW 12.1 (11.5-15.5) % Plt Count 271 (150-450) k/uL MPV 7.5 Neutrophils % 57 % Lymphocytes % 32 % Monocytes % 7 % Eosinophils % 2 % Basophils % 1 % Neutrophils # 7.3 (1.3-7.7) k/uL Lymphocytes # 4.1 (1.0-4.8) k/uL Monocytes # 0.9 (0-1.0) k/uL Eosinophils # 0.2 (0-0.7) k/uL Basophils # 0.1 (0-0.2) k/uL Sodium 136 L (137-145) mmol/L Potassium 3.8 (3.5-5.1) mmol/L Chloride 105 (98-107) mmol/L Carbon Dioxide 18 L (22-30) mmol/L Anion Gap 13 mmol/L BUN 12 (7-17) mg/dL Creatinine 0.61 (0.52-1.04) mg/dL Est GFR (CKD-EPI)AfAm >90 (>60 ml/min/1.73 sqM) Est GFR (CKD-EPI)NonAf >90 (>60 ml/min/1.73 sqM) Glucose 135 H (74-99) mg/dL Calcium 9.7 (8.4-10.2) mg/dL Total Bilirubin 1.1 (0.2-1.3) mg/dL AST 39 H (14-36) U/L ALT 37 H (4-34) U/L Alkaline Phosphatase 96 (38-126) U/L Total Protein 7.9 (6.3-8.2) g/dL Albumin 4.7 (3.5-5.0) g/dL Amylase 46 (30-110) U/L Lipase 100 (23-300) U/L Urine Color Yellow Urine Appearance Clear (Clear) Urine pH 6.0 (5.0-8.0) Ur Specific [place] 1.039 H (1.001-1.035) Urine Protein Trace H (Negative) Urine Glucose (UA) 4+ H (Negative) Urine Ketones Negative (Negative) Urine Blood Large H (Negative) Urine Nitrite Negative (Negative) Urine Bilirubin Negative (Negative) Urine Urobilinogen <2.0 (<2.0) mg/dL Ur Leukocyte Esterase Negative (Negative) Urine RBC >182 H (0-5) /hpf Urine WBC 2 (0-5) /hpf Ur Squamous Epith Cells 2 (0-4) /hpf Urine Mucus Rare H (None) /hpf Disposition Clinical Impression: Abdominal pain, Nausea and vomiting Disposition: HOME SELF-CARE Condition: Good Instructions (If sedation given, give patient instructions): Abdominal Pain (ED) Is patient prescribed a controlled substance at d/c from ED?: No Referrals: Rajiv Sexton MD [Primary Care Provider] - 1-2 days Time of Disposition: 23:10
[2022-07-08 22:09] LABS: Basophils # (A) 0.1 k/uL (0-0.2); Basophils % (A) 1 %; Eosinophils # (A) 0.2 k/uL (0-0.7); Eosinophils % (A) 2 %; HCT 43.7 % (34.0-46.0); HGB 15.1 gm/dL (11.4-16.0); Lymphocytes # (A) 4.1 k/uL (1.0-4.8); Lymphocytes % (A) 32 %; MCH 28.9 pg (25.0-35.0); MCHC 34.6 g/dL (31.0-37.0); MCV 83.8 fL (80.0-100.0); Mean Platelet Volume 7.5; Monocytes # (A) 0.9 k/uL (0-1.0); Monocytes % (A) 7 %; Neutrophils # (A) 7.3 k/uL (1.3-7.7); Neutrophils % (A) 57 %; Platelet Count 271 k/uL (150-450); RBC 5.22 m/uL (3.80-5.40); RDW 12.1 % (11.5-15.5); WBC 12.9 k/uL (3.8-10.6)
[2022-07-08 22:11] LABS: ALT 37 U/L (4-34); AST 39 U/L (14-36); African American GFR (CKD) >90 (>60 ml/min/1.73 sqM); Albumin 4.7 g/dL (3.5-5.0); Alkaline Phosphatase 96 U/L (38-126); Amylase 46 U/L (30-110); Anion Gap 13 mmol/L; Blood Urea Nitrogen 12 mg/dL (7-17); Calcium 9.7 mg/dL (8.4-10.2); Carbon Dioxide 18 mmol/L (22-30); Chloride 105 mmol/L (98-107); Glucose 135 mg/dL (74-99); Lipase 100 U/L (23-300); Non-African American GFR(CKD) >90 (>60 ml/min/1.73 sqM); Sodium 136 mmol/L (137-145); Total Bilirubin 1.1 mg/dL (0.2-1.3); Total Protein 7.9 g/dL (6.3-8.2)
[2022-07-08 22:16] LABS: Potassium 3.8 mmol/L (3.5-5.1)
[2022-07-08 22:18] LABS: Appearance,Urine Clear (Clear); Bilirubin,Urine Negative (Negative); Blood,Urine Large (Negative); Color,Urine Yellow; Glucose,Urine (UA) 4+ (Negative); Ketones,Urine Negative (Negative); Leukocyte Esterase,Urine Negative (Negative); Mucus,Urine Rare /hpf; Nitrite,Urine Negative (Negative); Protein,Urine Trace (Negative); RBC,Urine >182 /hpf (0-5); Specific Gravity,Urine 1.039 (1.001-1.035); Squamous Epithelial Cell,Urine 2 /hpf (0-4); Urobilinogen,Urine <2.0 mg/dL (<2.0); WBC,Urine 2 /hpf (0-5)
== END 2022-07-08 23:22 | disposition home or self-care (01) ==
LOC: EC 21:16
DX: R10.9 Unspecified abdominal pain (principal); R11.2 Nausea with vomiting, unspecified; I10 Essential (primary) hypertension; E11.9 Type 2 diabetes mellitus without complications; E78.5 Hyperlipidemia, unspecified; F31.9 Bipolar disorder, unspecified; F41.9 Anxiety disorder, unspecified; K21.9 Gastro-esophageal reflux disease without esophagitis; F17.200 Nicotine dependence, unspecified, uncomplicated; Z79.84 Long term (current) use of oral hypoglycemic drugs; Z79.899 Other long term (current) drug therapy; Z88.0 Allergy status to penicillin; Z88.1 Allergy status to other antibiotic agents; Z88.2 Allergy status to sulfonamides; Z88.8 Allergy status to other drugs, medicaments and biological substances
CPT/HCPCS: 36415; 80053; 82150; 83690; 85025; 81001; 99284; 96374; 96375 ×2; 96361; J1200; J0780; J1170

== ENCOUNTER 2022-07-23 01:51 | Emergency (ER) | payer BC, OTHER ==
[2022-07-23 02:06] VITALS: RESP 16; TEMP 98.1
[2022-07-23 03:01] LABS: Appearance,Urine Clear (Clear); Bilirubin,Urine Negative (Negative); Blood,Urine Large (Negative); Color,Urine Yellow; Glucose,Urine (UA) 4+ (Negative); Ketones,Urine Negative (Negative); Leukocyte Esterase,Urine Negative (Negative); Nitrite,Urine Negative (Negative); PH, Urine 5.5 (5.0-8.0); Protein,Urine Trace (Negative); RBC,Urine >182 /hpf (0-5); Specific Gravity,Urine 1.025 (1.001-1.035); Squamous Epithelial Cell,Urine 1 /hpf (0-4); Urobilinogen,Urine <2.0 mg/dL (<2.0); WBC,Urine <1 /hpf (0-5)
[2022-07-23] MEDS ORDERED: SODIUM CHLORIDE 0.9% 1,000 ML IV STA (03:04)
[2022-07-23] MEDS ORDERED: HYDROmorphone 1 MG/ML 1 ML SYRINGE IVP STA (03:04)
[2022-07-23] MEDS ORDERED: PROCHLORPERAZINE INJ 10 MG/2 ML VIAL IVP STA (03:04)
[2022-07-23] MEDS ORDERED: diphenhydrAMINE 50 MG/ML 1 ML VIAL IVP STA (03:04)
[2022-07-23] MEDS ORDERED: PANTOPRAZOLE 40 MG/10 ML VIAL IVP STA (03:04)
--- NOTE | 2022-07-23 03:05 | ED ---
Recheck HPI - General Chief Complaint: Abdominal Pain Stated Complaint: Kidney stone Time Seen by Provider: 07/23/22 03:03 Source: patient, RN notes reviewed, old records reviewed Mode of arrival: ambulatory Limitations: no limitations - History of Present Illness Initial Comments: This is a 47 show female well-known to this emergency department today. Patient comes in with abdominal pain nausea vomiting unable to keep down medications unable to take pain medications at home. She has no fevers no generalized change in symptoms severe history of kidney disease and disease of kidney stones MD Complaint: medication refill request -: days(s) Returns Today for: Called Because of Abnormal Lab/Test, persistent/worsening pain related to initial visit Symptoms Since Prior Visit: worsening pain Associated Symptoms: none Treatments Prior to Arrival: Given Pain Meds on - Related Data Home Medications Medication Instructions Recorded Confirmed oxyCODONE-APAP 10-325MG [Percocet 1 tab PO QID PRN 08/29/17 01/06/22 10-325 mg] PARoxetine HCL [Paxil] 40 mg PO DAILY 03/12/18 01/06/22 PARoxetine [Paxil] 20 mg PO DAILY 06/04/18 01/06/22 Loratadine 10 mg PO DAILY 04/21/20 01/06/22 Dapagliflozin Propanediol [Farxiga] 10 mg PO DAILY 12/07/21 01/06/22 Dextroamphetamine/Amphetamine 20 mg PO BID 12/07/21 01/06/22 [Dextroamp-Amphetamin 20 mg Tab] Glimepiride [Amaryl] 4 mg PO DAILY 12/07/21 01/06/22 Multivitamins, Thera [Multivitamin 1 tab PO DAILY 12/07/21 01/06/22 (formulary)] SUMAtriptan succinate [Imitrex] 100 mg PO DAILY PRN 12/07/21 01/06/22 Semaglutide [Rybelsus] 14 mg PO DAILY 01/06/22 01/06/22 Previous Rx's Medication Instructions Recorded Ondansetron Odt [Zofran Odt] 4 mg PO Q8H PRN #12 tab 01/06/22 Ondansetron Odt [Zofran Odt] 4 mg PO Q8HR PRN #15 tab 01/12/22 clindamycin HCL [Cleocin] 300 mg PO Q6HR #40 cap 01/21/22 Cephalexin [Keflex] 500 mg PO Q6HR #40 cap 02/21/22 Promethazine Suppository 25 mg RECTAL TID PRN #15 supp 02/21/22 [Phenergan] Cephalexin [Keflex] 500 mg PO Q12HR 5 Days #10 cap 02/27/22 Fluconazole [Diflucan] 150 mg PO ONCE #1 tab 02/27/22 Cefdinir 300 mg PO Q12HR #14 cap 05/14/22 Baclofen 10 mg PO TID PRN #20 tab 05/24/22 Phenazopyridine HCl [Pyridium] 100 mg PO TID PRN #6 tab 06/05/22 Ondansetron Odt [Zofran Odt] 4 mg PO Q8HR PRN #20 tab 06/21/22 Allergies Allergy/AdvReac Type Severity Reaction Status Date / Time bupropion HCl Allergy Rash/Hives Verified 07/08/22 21:21 [From Wellbutrin] divalproex sodium Allergy Unknown Verified 07/08/22 21:21 [From Depakote] fentanyl Allergy Swelling Verified 07/08/22 21:21 Iodinated Contrast Media Allergy Anaphylaxis Verified 07/08/22 21:21 [Iodinated Contrast Media - IV Dye] orange juice [[place]] Allergy Rash/Hives Verified 07/08/22 21:21 Sulfa (Sulfonamide Allergy Rash/Hives Verified 07/08/22 21:21 Antibiotics) Penicillins AdvReac Rash/Hives/Gi Verified 07/08/22 21:21 Upset Review of Systems ROS Statement: Those systems with pertinent positive or pertinent negative responses have been documented in the HPI. ROS Other: All systems not noted in ROS Statement are negative. 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 History of Any Multi-Drug Resistant Organisms: ESBL Date of last positivie culture/infection: 05/14/17 MDRO Source:: ESBL URINE, Past Surgical History: Bladder Surgery, Section, Cholecystectomy, Hysterectomy, Orthopedic Surgery, Tubal Ligation Additional Past Surgical History / Comment(s): R ovarian cystectomy, laparoscopic surgery for L ovary that had attached to the bowel, D&C, numerous lithotripsies, nephroscopies, cystoscopies and stents to ureters-none in place at this time, L robotic pyeloplasty with post op infection around kidney which then required a picc line/later removed (pt states was not MRSA), L rotator cuff repair, L wrist tendon surgery, colonoscopy. Kidney stone removal. Past Anesthesia/Blood Transfusion Reactions: Family History of Problems w/ Anesthesia Additional Past Anesthesia/Blood Transfusion Reaction / Comment(s): dad-hard time waking up due to enzyme problems in liver Past Psychological History: ADD/ADHD, Anxiety, Bipolar, Depression, PTSD Smoking Status: Current every day smoker Past Alcohol Use History: None Reported Past Drug Use History: None Reported - Past Family History Brother(s) Family Medical History: Cancer Additional Family Medical History / Comment(s): testicular Father Family Medical History: Coronary Artery Disease (CAD), CVA/TIA, Diabetes Mellitus, Renal Disease Additional Family Medical History / Comment(s): GLAUCOMA,NEUROPATHY HAD TRIPLE CABG, at 56yrs from renal disease. Mother Family Medical History: Hyperlipidemia Additional Family Medical History / Comment(s): DDD, HAD 3 vessel CABG AGE 54. General Exam Limitations: no limitations General appearance: alert, in no apparent distress Head exam: Present: atraumatic, normocephalic, normal inspection Eye exam: Present: normal appearance, PERRL, EOMI. Absent: scleral icterus, conjunctival injection, periorbital swelling ENT exam: Present: normal exam, mucous membranes moist Neck exam: Present: normal inspection. Absent: tenderness, meningismus, lym phadenopathy Respiratory exam: Present: normal lung sounds bilaterally. Absent: respiratory distress, wheezes, rales, rhonchi, stridor Cardiovascular Exam: Present: regular rate, normal rhythm, normal heart sounds. Absent: systolic murmur, diastolic murmur, rubs, gallop, clicks GI/Abdominal exam: Present: soft, normal bowel sounds. Absent: distended, tenderness, guarding, rebound, rigid Extremities exam: Present: normal inspection, full ROM, normal capillary refill. Absent: tenderness, pedal edema, joint swelling, calf tenderness Back exam: Present: normal inspection Neurological exam: Present: alert, oriented X3, CN II-XII intact Psychiatric exam: Present: normal affect, normal mood Skin exam: Present: warm, dry, intact, normal color. Absent: rash Course Vital Signs 07/23/22 07/23/22 01:59 05:59 Temperature 98.1 F Pulse Rate 110 H 98 Respiratory 16 16 Rate Blood Pressure 107/72 102/68 O2 Sat by Pulse 100 94 L Oximetry - Reevaluation(s) Reevaluation #1: 07/23/22 07:25 Medical record is reviewed Reevaluation #2: 07/23/22 07:25 Patient informed results questions are answered Reevaluation #3: 07/23/22 07:25 Patient's current pain is well-controlled Reevaluation #4: 07/23/22 07:25 Differential Abdominal Pain Women: Appendicitis, Cholecystitis, diverticulosis, ischemic bowel, pancreatitis, hepatitis, UTI, gastroenteritis, AAA, incarcerated hernia, bowel obstruction, c onstipation, inflammatory bowel, hepatitis, peptic ulcer disease, splenic infarction, perforated viscus, vulvitis, ovarian torsion, PID, kidney stone, placenta abruption, this is not meant to be an all-inclusive list Reevaluation #5: 07/23/22 07:25 Was pt. sent in by a medical professional or institution? @ -no Did you speak to anyone other than the patient for history? @ -no Did you review nursing and triage notes? @ -agree Were old charts reviewed? @ -no prior Differential Diagnosis? @ -no prior EKG interpreted by me (3pts min.)? @ -[none] X-rays interpreted by me (1pt min.)? @ -[none] CT interpreted by me (1pt min.)? @ -[none] U/S interpreted by me (1pt. min.)? @ -[none] What testing was considered but not performed? (CT, X-rays, U/S, labs)? Why? @ no What meds were considered but not given? Why? @ -[none] Did you discuss the management of the patient with other professionals? @ -no Did you reconcile home meds? @ -[none] Was smoking cessation discussed for >3mins.? @ -[none] Was critical care preformed (if so, how long)? @ -[none] Were there social determinants of health that impacted care today? How? (Homelessness, low income, unemployed, alcoholism, drug addiction, transportation, low edu. Level, literacy, decrease access to med. care, shelter, rehab)? @ -no Was there de-escalation of care discussed even if they declined? (Discuss DNR or withdrawal of care, Hospice)? @ -no What co-morbidities impacted this encounter? (DM, HTN, Smoking, COPD, CAD, Cancer, CVA, Hep., AIDS, mental health diagnosis, sleep apnea, morbid obesity)? @ -no Was patient admitted / discharged? @ -dc ] Undiagnosed new problem with uncertain prognosis? @ -[none] Drug Therapy requiring intensive monitoring for toxicity (Heparin, Nitro, Insulin, Cardizem)? @ -[none] Were any procedures done? @ -[none] Diagnosis/symptom? @ -[default] Acute, or Chronic, or Acute on Chronic? @ -[default] Uncomplicated (without systemic symptoms) or Complicated (systemic symptoms)? @ -[default] Side effects of treatment? @ -[none] Exacerbation, Progression, or Severe Exacerbation] @ -[no] Poses a threat to life or bodily function? @ -[no] Medical Decision Making - Medical Decision Making 47 female with abdominal pain flank pain chronic. There is unchanged in symptoms. Nausea vomiting now improved and patient can be discharged - Lab Data Result diagrams: 07/23/22 03:46 07/23/22 03:46 Lab Results 07/23/22 07/23/22 07/23/22 Range/Units 02:40 03:46 03:46 WBC 14.0 H (3.8-10.6) k/uL RBC 5.09 (3.80-5.40) m/uL Hgb 15.0 (11.4-16.0) gm/dL Hct 42.9 (34.0-46.0) % MCV 84.3 (80.0-100.0) fL MCH 29.4 (25.0-35.0) pg MCHC 34.9 (31.0-37.0) g/dL RDW 12.4 (11.5-15.5) % Plt Count 318 (150-450) k/uL MPV 7.7 Neutrophils % 64 % Lymphocytes % 27 % Monocytes % 5 % Eosinophils % 2 % Basophils % 0 % Neutrophils # 9.0 H (1.3-7.7) k/uL Lymphocytes # 3.8 (1.0-4.8) k/uL Monocytes # 0.8 (0-1.0) k/uL Eosinophils # 0.3 (0-0.7) k/uL Basophils # 0.1 (0-0.2) k/uL Sodium 139 (137-145) mmol/L Potassium 3.7 (3.5-5.1) mmol/L Chloride 107 (98-107) mmol/L Carbon Dioxide 20 L (22-30) mmol/L Anion Gap 12 mmol/L BUN 12 (7-17) mg/dL Creatinine 0.79 (0.52-1.04) mg/dL Est GFR (CKD-EPI)AfAm >90 (>60 ml/min/1.73 sqM) Est GFR (CKD-EPI)NonAf >90 (>60 ml/min/1.73 sqM) Glucose 93 (74-99) mg/dL Calcium 9.5 (8.4-10.2) mg/dL Total Bilirubin 1.1 (0.2-1.3) mg/dL AST 23 (14-36) U/L ALT 28 (4-34) U/L Alkaline Phosphatase 91 (38-126) U/L Total Protein 7.6 (6.3-8.2) g/dL Albumin 4.6 (3.5-5.0) g/dL Amylase 59 (30-110) U/L Lipase 159 (23-300) U/L Urine Color Yellow Urine Appearance Clear (Clear) Urine pH 5.5 (5.0-8.0) Ur Specific [place] 1.025 (1.001-1.035) Urine Protein Trace H (Negative) Urine Glucose (UA) 4+ H (Negative) Urine Ketones Negative (Negative) Urine Blood Large H (Negative) Urine Nitrite Negative (Negative) Urine Bilirubin Negative (Negative) Urine Urobilinogen <2.0 (<2.0) mg/dL Ur Leukocyte Esterase Negative (Negative) Urine RBC >182 H (0-5) /hpf Urine WBC <1 (0-5) /hpf Ur Squamous Epith Cells 1 (0-4) /hpf Disposition Clinical Impression: Left flank pain, chronic, Abdominal pain Disposition: HOME SELF-CARE Condition: Good Instructions (If sedation given, give patient instructions): Abdominal Pain (ED) Is patient prescribed a controlled substance at d/c from ED?: No Referrals: Rajiv Sexton MD [Primary Care Provider] - 1-2 days Time of Disposition: 06:00
[2022-07-23 06:03] LABS: Basophils # (A) 0.1 k/uL (0-0.2); Basophils % (A) 0 %; Eosinophils # (A) 0.3 k/uL (0-0.7); Eosinophils % (A) 2 %; HCT 42.9 % (34.0-46.0); Lymphocytes # (A) 3.8 k/uL (1.0-4.8); Lymphocytes % (A) 27 %; MCH 29.4 pg (25.0-35.0); MCHC 34.9 g/dL (31.0-37.0); MCV 84.3 fL (80.0-100.0); Mean Platelet Volume 7.7; Monocytes # (A) 0.8 k/uL (0-1.0); Monocytes % (A) 5 %; Neutrophils % (A) 64 %; Platelet Count 318 k/uL (150-450); RBC 5.09 m/uL (3.80-5.40); RDW 12.4 % (11.5-15.5)
[2022-07-23 06:21] VITALS: BP 102/68; PULSE 98
[2022-07-23 06:22] LABS: ALT 28 U/L (4-34); AST 23 U/L (14-36); African American GFR (CKD) >90 (>60 ml/min/1.73 sqM); Albumin 4.6 g/dL (3.5-5.0); Alkaline Phosphatase 91 U/L (38-126); Amylase 59 U/L (30-110); Anion Gap 12 mmol/L; Blood Urea Nitrogen 12 mg/dL (7-17); Calcium 9.5 mg/dL (8.4-10.2); Carbon Dioxide 20 mmol/L (22-30); Chloride 107 mmol/L (98-107); Glucose 93 mg/dL (74-99); Lipase 159 U/L (23-300); Non-African American GFR(CKD) >90 (>60 ml/min/1.73 sqM); Potassium 3.7 mmol/L (3.5-5.1); Sodium 139 mmol/L (137-145); Total Bilirubin 1.1 mg/dL (0.2-1.3); Total Protein 7.6 g/dL (6.3-8.2)
== END 2022-07-23 05:59 | disposition home or self-care (01) ==
LOC: EC 01:51
DX: R10.9 Unspecified abdominal pain (principal); G89.29 Other chronic pain; I10 Essential (primary) hypertension; E11.9 Type 2 diabetes mellitus without complications; F90.9 Attention-deficit hyperactivity disorder, unspecified type; F41.9 Anxiety disorder, unspecified; F31.9 Bipolar disorder, unspecified; F17.200 Nicotine dependence, unspecified, uncomplicated; Z79.84 Long term (current) use of oral hypoglycemic drugs; Z88.2 Allergy status to sulfonamides; Z91.041 Radiographic dye allergy status; Z88.0 Allergy status to penicillin; Z88.5 Allergy status to narcotic agent; Z88.8 Allergy status to other drugs, medicaments and biological substances
CPT/HCPCS: 36415; 80053; 82150; 83690; 85025; 81001; 99284; 96374; 96375 ×3; 96361; J1200; J0780; J1170; C9113

== ENCOUNTER 2022-09-06 01:12 | Emergency (ER) | payer BC, OTHER ==
[2022-09-06 01:23] VITALS: RESP 18; TEMP 97.5
[2022-09-06] MEDS ORDERED: ONDANSETRON 4 MG/2 ML VIAL IVP STA (01:48)
[2022-09-06] MEDS ORDERED: KETOROLAC 15 MG/ML 1 ML VIAL IVP STA (01:48)
[2022-09-06] MEDS ORDERED: HYDROmorphone 1 MG/ML 1 ML SYRINGE IVP STA ×2 (01:48→02:39)
[2022-09-06] MEDS ORDERED: SODIUM CHLORIDE 0.9% 2,000 ML IV STA (01:48)
--- NOTE | 2022-09-06 02:13 | ED ---
Abdominal Pain HPI - General Chief Complaint: Abdominal Pain Stated Complaint: Kidney Stone Time Seen by Provider: 09/06/22 01:43 Source: patient, RN notes reviewed Mode of arrival: ambulatory Limitations: no limitations - History of Present Illness Initial Comments: This is a 47-year-old female who presents to the emergency department for right flank pain. Patient is very well known to this emergency department for recurrent kidney stones. States that this time the pain started a couple of days ago. She has associated nausea and vomiting and is concerned about dehydration. She is taking her Toradol, Percocet, and Flomax at home with no relief in symptoms. She has a follow up appointment with urology on 09/08. Denies any fevers, chills, sore throat, cough, dyspnea, chest pain, palpitations, diarrhea, or headaches. MD Complaint: abdominal pain, flank pain Onset/Timin -: days(s) Location: R flank - Related Data Home Medications Medication Instructions Recorded Confirmed oxyCODONE-APAP 10-325MG [Percocet 1 tab PO QID PRN 08/29/17 01/06/22 10-325 mg] PARoxetine HCL [Paxil] 40 mg PO DAILY 03/12/18 01/06/22 PARoxetine [Paxil] 20 mg PO DAILY 06/04/18 01/06/22 Loratadine 10 mg PO DAILY 04/21/20 01/06/22 Dapagliflozin Propanediol [Farxiga] 10 mg PO DAILY 12/07/21 01/06/22 Dextroamphetamine/Amphetamine 20 mg PO BID 12/07/21 01/06/22 [Dextroamp-Amphetamin 20 mg Tab] Glimepiride [Amaryl] 4 mg PO DAILY 12/07/21 01/06/22 Multivitamins, Thera [Multivitamin 1 tab PO DAILY 12/07/21 01/06/22 (formulary)] SUMAtriptan succinate [Imitrex] 100 mg PO DAILY PRN 12/07/21 01/06/22 Semaglutide [Rybelsus] 14 mg PO DAILY 01/06/22 01/06/22 Previous Rx's Medication Instructions Recorded Ondansetron Odt [Zofran Odt] 4 mg PO Q8H PRN #12 tab 01/06/22 Ondansetron Odt [Zofran Odt] 4 mg PO Q8HR PRN #15 tab 01/12/22 clindamycin HCL [Cleocin] 300 mg PO Q6HR #40 cap 01/21/22 Cephalexin [Keflex] 500 mg PO Q6HR #40 cap 02/21/22 Promethazine Suppository 25 mg RECTAL TID PRN #15 supp 02/21/22 [Phenergan] Cephalexin [Keflex] 500 mg PO Q12HR 5 Days #10 cap 02/27/22 Fluconazole [Diflucan] 150 mg PO ONCE #1 tab 02/27/22 Cefdinir 300 mg PO Q12HR #14 cap 05/14/22 Baclofen 10 mg PO TID PRN #20 tab 05/24/22 Phenazopyridine HCl [Pyridium] 100 mg PO TID PRN #6 tab 06/05/22 Ondansetron Odt [Zofran Odt] 4 mg PO Q8HR PRN #20 tab 06/21/22 Ondansetron Odt [Zofran Odt] 4 mg PO Q8HR PRN #20 tab 09/06/22 Allergies Allergy/AdvReac Type Severity Reaction Status Date / Time bupropion HCl Allergy Rash/Hives Verified 09/06/22 01:20 [From Wellbutrin] divalproex sodium Allergy Unknown Verified 09/06/22 01:20 [From Depakote] fentanyl Allergy Swelling Verified 09/06/22 01:20 Iodinated Contrast Media Allergy Anaphylaxis Verified 09/06/22 01:20 [Iodinated Contrast Media - IV Dye] orange juice [[place]] Allergy Rash/Hives Verified 09/06/22 01:20 Sulfa (Sulfonamide Allergy Rash/Hives Verified 09/06/22 01:20 Antibiotics) Penicillins AdvReac Rash/Hives/Gi Verified 09/06/22 01:20 Upset Review of Systems ROS Statement: Those systems with pertinent positive or pertinent negative responses have been documented in the HPI. ROS Other: All systems not noted in ROS Statement are negative. 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 History of Any Multi-Drug Resistant Organisms: ESBL Date of last positivie culture/infection: 05/14/17 MDRO Source:: ESBL URINE, Past Surgical History: Bladder Surgery, Section, Cholecystectomy, Hysterectomy, Orthopedic Surgery, Tubal Ligation Additional Past Surgical History / Comment(s): R ovarian cystectomy, la paroscopic surgery for L ovary that had attached to the bowel, D&C, numerous lithotripsies, nephroscopies, cystoscopies and stents to ureters-none in place at this time, L robotic pyeloplasty with post op infection around kidney which then required a picc line/later removed (pt states was not MRSA), L rotator cuff repair, L wrist tendon surgery, colonoscopy. Kidney stone removal. Past Anesthesia/Blood Transfusion Reactions: Family History of Problems w/ Anesthesia Additional Past Anesthesia/Blood Transfusion Reaction / Comment(s): dad-hard christoph e waking up due to enzyme problems in liver Past Psychological History: ADD/ADHD, Anxiety, Bipolar, Depression, PTSD Smoking Status: Current every day smoker Past Alcohol Use History: None Reported Past Drug Use History: None Reported - Past Family History Brother(s) Family Medical History: Cancer Additional Family Medical History / Comment(s): testicular Father Family Medical History: Coronary Artery Disease (CAD), CVA/TIA, Diabetes Mellitus, Renal Disease Additional Family Medical History / Comment(s): GLAUCOMA,NEUROPATHY HAD TRIPLE CABG, at 56yrs from renal disease. Mother Family Medical History: Hyperlipidemia Additional Family Medical History / Comment(s): DDD, HAD 3 vessel CABG AGE 54. General Exam Limitations: no limitations General appearance: alert, in no apparent distress Head exam: Present: atraumatic, normocephalic, normal inspection Respiratory exam: Present: normal lung sounds bilaterally. Absent: respiratory distress, wheezes, rales, rhonchi, stridor Cardiovascular Exam: Present: regular rate, normal rhythm, normal heart sounds. Absent: systolic murmur, diastolic murmur, rubs, gallop, clicks GI/Abdominal exam: Present: soft, normal bowel sounds. Absent: distended, tenderness, guarding, rebound, rigid Back exam: Present: CVA tenderness (R). Absent: CVA tenderness (L) Neurological exam: Present: alert, oriented X3, CN II-XII intact Psychiatric exam: Present: normal affect, normal mood Skin exam: Present: warm, dry, intact, normal color. Absent: rash Course Vital Signs 09/06/22 09/06/22 01:20 03:44 Temperature 97.5 F L Pulse Rate 90 76 Respiratory 18 18 Rate Blood Pressure 108/76 139/71 O2 Sat by Pulse 99 99 Oximetry Medical Decision Making - Medical Decision Making This is a 47-year-old female who presents to the emergency department for right flank pain. Was pt. sent in by a medical professional or institution? @ -No Did you speak to anyone other than the patient for history? @ -No Did you review nursing and triage notes? @ -Yes, and I agree, it is accurate with regards to the patient's symptoms. Were old charts reviewed? @ -No Differential Diagnosis? @ -Differential Back Pain: Strain, zoster, cauda equina syndrome, epidural abscess, vertebral osteomyelitis, discitis, fracture, subluxation, disc herniation, DJD, spinal stenosis, dissection, AAA, pancreatitis, peptic ulcer disease, pyelonephritis, kidney stone, this is not meant to be an all-inclusive list. What testing was considered but not performed? (CT, X-rays, U/S, labs)? Why? @ -None What meds were considered but not given? Why? @ -None Did you discuss the management of the patient with other professionals? @ -No Did you reconcile home meds? @ -No Was smoking cessation discussed for >3mins.? @ -No Was critical care preformed (if so, how long)? @ -No Were there social determinants of health that impacted care today? How? (Homelessness, low income, unemployed, alcoholism, drug addiction, transportation, low edu. Level, literacy, decrease access to med. care, care home, rehab)? @ -No Was there de-escalation of care discussed even if they declined? (Discuss DNR or withdrawal of care, Hospice)? @ -No What co-morbidities impacted this encounter? (DM, HTN, Smoking, COPD, CAD, Cancer, CVA, Hep., AIDS, mental health diagnosis, sleep apnea, morbid obesity)? @ -Kidney stones Was patient admitted / discharged? @ -Discharged. Urinalysis consistent with contamination and there is no evidence of infection. Blood is present as is a consistent finding for the patient with the recurrent kidney stones. Patient was given 2 L of IV fluids and pain was well managed in the emergency department. Refill provided for the Zofran. She is instructed to continue with her prescribed medications at home for symptomatic management and to follow-up with urology as scheduled on 09/08 Undiagnosed new problem with uncertain prognosis? @ -None Drug Therapy requiring intensive monitoring for toxicity (Heparin, Nitro, Insulin, Cardizem)? @ -None Were any procedures done? @ -None Diagnosis/symptom? @ -Kidney stones Acute, or Chronic, or Acute on Chronic? @ -Acute on chronic Uncomplicated (without systemic symptoms) or Complicated (systemic symptoms)? @ -Uncomplicated Side effects of treatment? @ -None Exacerbation, Progression, or Severe Exacerbation] @ -Exacerbation Poses a threat to life or bodily function? @ -No Return precautions reviewed in depth, the patient is instructed to return to the emergency department with any new, worsening, or concerning symptoms. Patient verbalized understanding. This case was discussed in detail with the attending ED physician, Dr. Montgomery. Presentation, findings, and treatment plan discussed in detail as well. - Lab Data Lab Results 09/06/22 Range/Units 01:26 Urine Color Red Urine Appearance Cloudy H (Clear) Urine pH 5.5 (5.0-8.0) Ur Specific [place] 1.031 (1.001-1.035) Urine Protein 1+ H (Negative) Urine Glucose (UA) 4+ H (Negative) Urine Ketones Trace H (Negative) Urine Blood Large H (Negative) Urine Nitrite Negative (Negative) Urine Bilirubin Negative (Negative) Urine Urobilinogen <2.0 (<2.0) mg/dL Ur Leukocyte Esterase Small H (Negative) Urine RBC >182 H (0-5) /hpf Urine WBC 6 H (0-5) /hpf Ur Squamous Epith Cells 20 H (0-4) /hpf Urine Bacteria Rare H (None) /hpf Urine Mucus Few H (None) /hpf Urine Yeast (Budding) Many H (None) /hpf Disposition Clinical Impression: Right flank pain Disposition: HOME SELF-CARE Instructions (If sedation given, give patient instructions): Kidney Stones (ED), Flank Pain (ED) Additional Instructions: Return to the emergency department with any new, worsening, or concerning symptoms. Continue to take your prescribed medications for management of your symptoms. Follow-up with urology as scheduled. Follow up with your primary care provider in 1-2 days. Prescriptions: Ondansetron Odt [Zofran Odt] 4 mg PO Q8HR PRN #20 tab PRN Reason: Nausea And Vomiting Is patient prescribed a controlled substance at d/c from ED?: No Referrals: Rajiv Sexton MD [Primary Care Provider] - 1-2 days
[2022-09-06 02:28] LABS: Appearance,Urine Cloudy (Clear); Bacteria,Urine Rare /hpf; Bilirubin,Urine Negative (Negative); Blood,Urine Large (Negative); Budding Yeast,Urine Many /hpf; Color,Urine Red; Glucose,Urine (UA) 4+ (Negative); Ketones,Urine Trace (Negative); Leukocyte Esterase,Urine Small (Negative); Mucus,Urine Few /hpf; Nitrite,Urine Negative (Negative); PH, Urine 5.5 (5.0-8.0); Protein,Urine 1+ (Negative); RBC,Urine >182 /hpf (0-5); Specific Gravity,Urine 1.031 (1.001-1.035); Squamous Epithelial Cell,Urine 20 /hpf (0-4); Urobilinogen,Urine <2.0 mg/dL (<2.0); WBC,Urine 6 /hpf (0-5)
[2022-09-06] MEDS ORDERED: ONDANSETRON 4 MG ODT STARTER PACK 2 TAB BTL PO STA (02:39)
[2022-09-06 03:46] VITALS: BP 139/71; PULSE 76
== END 2022-09-06 03:45 | disposition home or self-care (01) ==
LOC: EC 01:12
DX: R10.9 Unspecified abdominal pain (principal); E11.9 Type 2 diabetes mellitus without complications; K21.9 Gastro-esophageal reflux disease without esophagitis; E78.5 Hyperlipidemia, unspecified; I10 Essential (primary) hypertension; F17.200 Nicotine dependence, unspecified, uncomplicated; F90.9 Attention-deficit hyperactivity disorder, unspecified type; F41.9 Anxiety disorder, unspecified; Z79.84 Long term (current) use of oral hypoglycemic drugs; Z90.710 Acquired absence of both cervix and uterus; Z90.49 Acquired absence of other specified parts of digestive tract; Z88.0 Allergy status to penicillin; Z88.1 Allergy status to other antibiotic agents; Z88.2 Allergy status to sulfonamides; Z91.018 Allergy to other foods; Z88.8 Allergy status to other drugs, medicaments and biological substances; Z98.51 Tubal ligation status; Z87.442 Personal history of urinary calculi
CPT/HCPCS: 81001; 99284; 96374; 96375; 96376; 96361; J2405; J1170; J1885; S0119

== ENCOUNTER 2022-09-09 00:49 | Emergency (ER) | payer BC, OTHER ==
[2022-09-09 00:58] VITALS: BP 117/82; PULSE 93; RESP 18; TEMP 97.6
[2022-09-09] MEDS ORDERED: METOCLOPRAMIDE 5 MG/ML 2 ML VIAL IM PRN (01:17)
[2022-09-09] MEDS ORDERED: KETOROLAC 15 MG/ML 1 ML VIAL IM STA (01:17)
[2022-09-09] MEDS ORDERED: TRIMETHOBENZAMIDE 100 MG/ML 2 ML VIAL IM STA (01:23)
--- NOTE | 2022-09-09 01:24 | ED ---
General Adult HPI - General Chief complaint: Abdominal Pain Stated complaint: kidney stone Time Seen by Provider: 09/09/22 01:00 Source: patient, RN notes reviewed, old records reviewed Mode of arrival: ambulatory Limitations: no limitations - History of Present Illness Initial comments: This is a well-appearing 47-year-old female that presents to the emergency room ambulatory with complaints of right flank pain. Has been seen in the emergency room multiple times for similar pain. Last visit was 2 days ago. She states that she did see Dr. Lockett her urologist in [place] yesterday and is scheduled to have lithotripsy on next week. She is currently taking Percocet, toradol and zofran. Continues to have pain and nausea. denies any fevers -: week(s) Location: back (flank), right Severity scale (1-10): 9 Quality: sharp, constant Consistency: constant Improves with: none Associated Symptoms: nausea/vomiting Treatments Prior to Arrival: other (zofran, percocet) - Related Data Home Medications Medication Instructions Recorded Confirmed oxyCODONE-APAP 10-325MG [Percocet 1 tab PO QID PRN 08/29/17 01/06/22 10-325 mg] PARoxetine HCL [Paxil] 40 mg PO DAILY 03/12/18 01/06/22 PARoxetine [Paxil] 20 mg PO DAILY 06/04/18 01/06/22 Loratadine 10 mg PO DAILY 04/21/20 01/06/22 Dapagliflozin Propanediol [Farxiga] 10 mg PO DAILY 12/07/21 01/06/22 Dextroamphetamine/Amphetamine 20 mg PO BID 12/07/21 01/06/22 [Dextroamp-Amphetamin 20 mg Tab] Glimepiride [Amaryl] 4 mg PO DAILY 12/07/21 01/06/22 Multivitamins, Thera [Multivitamin 1 tab PO DAILY 12/07/21 01/06/22 (formulary)] SUMAtriptan succinate [Imitrex] 100 mg PO DAILY PRN 12/07/21 01/06/22 Semaglutide [Rybelsus] 14 mg PO DAILY 01/06/22 01/06/22 Previous Rx's Medication Instructions Recorded Ondansetron Odt [Zofran Odt] 4 mg PO Q8H PRN #12 tab 07/15/22 Ondansetron Odt [Zofran Odt] 4 mg PO Q8HR PRN #15 tab 01/12/22 clindamycin HCL [Cleocin] 300 mg PO Q6HR #40 cap 01/21/22 Cephalexin [Keflex] 500 mg PO Q6HR #40 cap 02/21/22 Promethazine Suppository 25 mg RECTAL TID PRN #15 supp 02/21/22 [Phenergan] Cephalexin [Keflex] 500 mg PO Q12HR 5 Days #10 cap 02/27/22 Fluconazole [Diflucan] 150 mg PO ONCE #1 tab 02/27/22 Cefdinir 300 mg PO Q12HR #14 cap 05/14/22 Baclofen 10 mg PO TID PRN #20 tab 05/24/22 Phenazopyridine HCl [Pyridium] 100 mg PO TID PRN #6 tab 06/05/22 Ondansetron Odt [Zofran Odt] 4 mg PO Q8HR PRN #20 tab 06/21/22 Ondansetron Odt [Zofran Odt] 4 mg PO Q8HR PRN #20 tab 09/06/22 Allergies Allergy/AdvReac Type Severity Reaction Status Date / Time bupropion HCl Allergy Rash/Hives Verified 09/09/22 00:55 [From Wellbutrin] divalproex sodium Allergy Unknown Verified 09/09/22 00:55 [From Depakote] fentanyl Allergy Swelling Verified 09/09/22 00:55 Iodinated Contrast Media Allergy Anaphylaxis Verified 09/09/22 00:55 [Iodinated Contrast Media - IV Dye] orange juice [[place]] Allergy Rash/Hives Verified 09/09/22 00:55 Sulfa (Sulfonamide Allergy Rash/Hives Verified 09/09/22 00:55 Antibiotics) Penicillins AdvReac Rash/Hives/Gi Verified 09/09/22 00:55 Upset Review of Systems ROS Statement: Those systems with pertinent positive or pertinent negative responses have been documented in the HPI. ROS Other: All systems not noted in ROS Statement are negative. 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 History of Any Multi-Drug Resistant Organisms: ESBL Date of last positivie culture/infection: 05/14/17 MDRO Source:: ESBL URINE, Past Surgical History: Bladder Surgery, Section, Cholecystectomy, H ysterectomy, Orthopedic Surgery, Tubal Ligation Additional Past Surgical History / Comment(s): R ovarian cystectomy, laparoscopic surgery for L ovary that had attached to the bowel, D&C, numerous lithotripsies, nephroscopies, cystoscopies and stents to ureters-none in place at this time, L robotic pyeloplasty with post op infection around kidney which then required a picc line/later removed (pt states was not MRSA), L rotator cuff repair, L wrist tendon surgery, colonoscopy. Kidney stone removal. Past Anesthesia/Blood Transfusion Reactions: Family History of Problems w/ Anesthesia Additional Past Anesthesia/Blood Transfusion Reaction / Comment(s): dad-hard time waking up due to enzyme problems in liver Past Psychological History: ADD/ADHD, Anxiety, Bipolar, Depression, PTSD Smoking Status: Current every day smoker Past Alcohol Use History: None Reported Past Drug Use History: None Reported - Past Family History Brother(s) Family Medical History: Cancer Additional Family Medical History / Comment(s): testicular Father Family Medical History: Coronary Artery Disease (CAD), CVA/TIA, Diabetes Mellit us, Renal Disease Additional Family Medical History / Comment(s): GLAUCOMA,NEUROPATHY HAD TRIPLE CABG, at 56yrs from renal disease. Mother Family Medical History: Hyperlipidemia Additional Family Medical History / Comment(s): DDD, HAD 3 vessel CABG AGE 54. General Exam Limitations: no limitations General appearance: alert, in no apparent distress Head exam: Present: atraumatic, normocephalic Eye exam: Present: normal appearance. Absent: scleral icterus, conjunctival injection, periorbital swelling Neck exam: Present: full ROM. Absent: meningismus Respiratory exam: Present: normal lung sounds bilaterally. Absent: respiratory distress, accessory muscle use Cardiovascular Exam: Present: regular rate GI/Abdominal exam: Present: soft. Absent: rigid Extremities exam: Present: full ROM, normal capillary refill. Absent: tenderness, pedal edema Back exam: Absent: tenderness, CVA tenderness (R), CVA tenderness (L), muscle spasm, paraspinal tenderness, vertebral tenderness, rash noted Neurological exam: Present: alert, oriented X3, normal gait Psychiatric exam: Present: normal affect, normal mood Skin exam: Present: warm, dry, normal color. Absent: cyanosis, diaphoretic, petechiae, pallor Course Vital Signs 09/09/22 00:55 Temperature 97.6 F Pulse Rate 93 Respiratory 18 Rate Blood Pressure 117/82 O2 Sat by Pulse 100 Oximetry Medical Decision Making - Medical Decision Making Patient was seen on September 06 with complaints of right flank pain. Well-known to the emergency room with complaints of chronic kidney stones with multiple visits. She was given a prescriptions for Zofran at last ER visit. States she did see her urologist yesterday, Dr. Lockett, in [place] and scheduled for lithotripsy on next week at [place]. Patient is afebrile, UA shows large amount of blood no evidence of urinary tract infection. She was given Toradol and Tigan. No vomiting in the emergency room. Directed to continue with her Percocet, Toradol and Zofran at home. Contact her doctor on Sunday. She is agreeable to this plan of care. Case discussed with Dr. Pena. Was pt. sent in by a medical professional or institution (, PA, BUS ESCORT, urgent care, hospital, or group home...) When possible be specific @ -[No] Did you speak to anyone other than the patient for history (EMS, parent, family, police, friend...)? What history was obtained from this source @ -[No] Did you review nursing and triage notes (agree or disagree)? Why? @ -[I reviewed and agree with nursing and triage notes] Were old charts reviewed (outside hosp., previous admission, EMS record, old EKG, old radiological studies, urgent care reports/EKG's, group home records)? Report findings @ yes as above ER visit 09/06/22 Differential Diagnosis (chest pain, altered mental status, abdominal pain women, abdominal pain men, vaginal bleeding, weakness, fever, dyspnea, syncope, headach e, dizziness, GI bleed, back pain, seizure, CVA, palpatations, mental health, musculoskeletal)? @ Differential Back Pain: Strain, zoster, cauda equina syndrome, epidural abscess, vertebral osteomyelitis, discitis, fracture, subluxation, disc herniation, DJD, spinal stenosis, dissection, AAA, pancreatitis, peptic ulcer disease, pyelonephritis, kidney stone, this is not meant to be an all-inclusive list. EKG interpreted by me (3pts min.). @ n/a X-rays interpreted by me (1pt min.). @ -[None done] CT interpreted by me (1pt min.). @ -[None done] U/S interpreted by me (1pt. min.). @ -[None done] What testing was considered but not performed or refused? (CT, X-rays, U/S, labs)? Why? @ -[None] What meds were considered but not given or refused? Why? @ -[None] Did you discuss the management of the patient with other professionals (professionals i.e. , PA, BUS ESCORT, lab, RT, psych nurse, nursing home social worker, [employer], teacher, chairman & chief executive officer, case managers)? Give summary @ -[No] Was smoking cessation discussed for >3mins.? @ -[No] Was critical care preformed (if so, how long)? @ -[No] Were there social determinants of health that impacted care today? How? (Homelessness, low income, unemployed, alcoholism, drug addiction, transportation, low edu. Level, literacy, decrease access to med. care, fci, rehab)? @ -[No] Was there de-escalation of care discussed even if they declined (Discuss DNR or withdrawal of care, Hospice)? DNR status @ -[No] What co-morbidities impacted this encounter? (DM, HTN, Smoking, COPD, CAD, Cancer, CVA, ARF, Chemo, Hep., AIDS, mental health diagnosis, sleep apnea, morbid obesity)? @ diabetes, GERD, hypertension, chronic kidney stones, ADHD, anxiety, bipolar, depression, PTSD Was patient admitted / discharged? Hospital course, mention meds given and route, prescriptions, significant lab abnormalities, going to OR and other pertinent info. @ discharged Undiagnosed new problem with uncertain prognosis? @ -[No] Drug Therapy requiring intensive monitoring for toxicity (Heparin, Nitro, Insulin, Cardizem)? @ -[No] Were any procedures done? @ -[No] Diagnosis/symptom? @ flank pain right Acute, or Chronic, or Acute on Chronic? @ acute on chronic Uncomplicated (without systemic symptoms) or Complicated (systemic symptoms)? @ -[default] Side effects of treatment? @ -[No] Exacerbation, Progression, or Severe Exacerbation? @ -[No] Poses a threat to life or bodily function? How? (Chest pain, [place], [place], pneumonia, PE, COPD, DKA, ARF, appy, cholecystitis, CVA, Diverticulitis, Homicidal, Suicidal, threat to staff... and all critical care pts) @ -[No] - Lab Data Lab Results 09/09/22 Range/Units 01:09 Urine Color Yellow Urine Appearance Clear (Clear) Urine pH 5.5 (5.0-8.0) Ur Specific [place] 1.022 (1.001-1.035) Urine Protein Trace H (Negative) Urine Glucose (UA) 4+ H (Negative) Urine Ketones Trace H (Negative) Urine Blood Large H (Negative) Urine Nitrite Negative (Negative) Urine Bilirubin Negative (Negative) Urine Urobilinogen 2.0 (<2.0) mg/dL Ur Leukocyte Esterase Trace H (Negative) Urine RBC >182 H (0-5) /hpf Urine WBC 8 H (0-5) /hpf Ur Squamous Epith Cells 4 (0-4) /hpf Disposition Clinical Impression: Flank pain, chronic, Flank pain Disposition: HOME SELF-CARE Condition: Good Instructions (If sedation given, give patient instructions): Flank Pain (ED) Additional Instructions: Contact your doctor on Sunday morning. Continue previously prescribed medications. For additional nausea medication you can take Unisom [id number] or 25 mg of Benadryl every 6-8 hours Is patient prescribed a controlled substance at d/c from ED?: No Referrals: Rajiv Sexton MD [Primary Care Provider] - 1-2 days Time of Disposition: 01:33
[2022-09-09 01:53] LABS: Appearance,Urine Clear (Clear); Bilirubin,Urine Negative (Negative); Blood,Urine Large (Negative); Color,Urine Yellow; Glucose,Urine (UA) 4+ (Negative); Ketones,Urine Trace (Negative); Leukocyte Esterase,Urine Trace (Negative); Nitrite,Urine Negative (Negative); PH, Urine 5.5 (5.0-8.0); Protein,Urine Trace (Negative); RBC,Urine >182 /hpf (0-5); Specific Gravity,Urine 1.022 (1.001-1.035); Squamous Epithelial Cell,Urine 4 /hpf (0-4); WBC,Urine 8 /hpf (0-5)
== END 2022-09-09 01:42 | disposition home or self-care (01) ==
LOC: EC 00:49
DX: R10.9 Unspecified abdominal pain (principal); E11.9 Type 2 diabetes mellitus without complications; I10 Essential (primary) hypertension; F31.9 Bipolar disorder, unspecified; F41.9 Anxiety disorder, unspecified; F17.200 Nicotine dependence, unspecified, uncomplicated; Z88.0 Allergy status to penicillin; Z88.2 Allergy status to sulfonamides; Z91.041 Radiographic dye allergy status; Z91.018 Allergy to other foods; Z90.49 Acquired absence of other specified parts of digestive tract; Z79.899 Other long term (current) drug therapy
CPT/HCPCS: 96372 ×3; 99284 ×2; 81001; J3250; J1885

== ENCOUNTER 2022-09-22 02:23 | Emergency (ER) | payer BC, OTHER ==
[2022-09-22 02:33] VITALS: RESP 18; TEMP 97.6
[2022-09-22] MEDS ORDERED: SODIUM CHLORIDE 0.9% 1,000 ML IV ONE (03:20)
[2022-09-22] MEDS ORDERED: MORPHINE SULFATE 4 MG/ML SYRINGE IVP STA (03:20)
[2022-09-22] MEDS ORDERED: KETOROLAC 15 MG/ML 1 ML VIAL IVP STA ×2 (03:20→05:32)
[2022-09-22 03:24] LABS: Appearance,Urine Clear (Clear); Bilirubin,Urine Negative (Negative); Blood,Urine Negative (Negative); Color,Urine Light Yellow; Glucose,Urine (UA) 4+ (Negative); Ketones,Urine Negative (Negative); Leukocyte Esterase,Urine Negative (Negative); Nitrite,Urine Negative (Negative); Protein,Urine Negative (Negative); Urobilinogen,Urine <2.0 mg/dL (<2.0)
[2022-09-22 03:25] LABS: Basophils # (A) 0.1 k/uL (0-0.2); Basophils % (A) 1 %; Eosinophils # (A) 0.5 k/uL (0-0.7); Eosinophils % (A) 3 %; HGB 16.6 gm/dL (11.4-16.0); Lymphocytes % (A) 35 %; MCH 29.9 pg (25.0-35.0); MCHC 35.3 g/dL (31.0-37.0); MCV 84.5 fL (80.0-100.0); Mean Platelet Volume 7.5; Monocytes # (A) 0.7 k/uL (0-1.0); Monocytes % (A) 4 %; Neutrophils # (A) 9.3 k/uL (1.3-7.7); Neutrophils % (A) 55 %; Platelet Count 355 k/uL (150-450); RBC 5.56 m/uL (3.80-5.40); RDW 12.8 % (11.5-15.5)
[2022-09-22 03:38] LABS: ALT 24 U/L (4-34); AST 19 U/L (14-36); African American GFR (CKD) >90 (>60 ml/min/1.73 sqM); Albumin 4.5 g/dL (3.5-5.0); Alkaline Phosphatase 108 U/L (38-126); Anion Gap 12 mmol/L; Blood Urea Nitrogen 8 mg/dL (7-17); Calcium 9.7 mg/dL (8.4-10.2); Carbon Dioxide 24 mmol/L (22-30); Chloride 104 mmol/L (98-107); Glucose 125 mg/dL (74-99); Non-African American GFR(CKD) >90 (>60 ml/min/1.73 sqM); Potassium 3.8 mmol/L (3.5-5.1); Sodium 140 mmol/L (137-145); Total Bilirubin 1.1 mg/dL (0.2-1.3); Total Protein 7.6 g/dL (6.3-8.2)
--- NOTE | 2022-09-22 04:05 | ED ---
General Adult HPI - General Chief complaint: Abdominal Pain Stated complaint: Abd Pain Time Seen by Provider: 09/22/22 03:13 Source: patient, RN notes reviewed, old records reviewed Mode of arrival: ambulatory - History of Present Illness Initial comments: 47 yo female history of kidney stones and renal colic presenting for evaluation of left-sided flank pain. Patient believes she did pass a stone prior to arrival. She also had several episodes of vomiting. No fever. No dysuria. - Related Data Home Medications Medication Instructions Recorded Confirmed oxyCODONE-APAP 10-325MG [Percocet 1 tab PO QID PRN 08/29/17 01/06/22 10-325 mg] PARoxetine HCL [Paxil] 40 mg PO DAILY 03/12/18 01/06/22 PARoxetine [Paxil] 20 mg PO DAILY 06/04/18 01/06/22 Loratadine 10 mg PO DAILY 04/21/20 01/06/22 Dapagliflozin Propanediol [Farxiga] 10 mg PO DAILY 12/07/21 01/06/22 Dextroamphetamine/Amphetamine 20 mg PO BID 12/07/21 01/06/22 [Dextroamp-Amphetamin 20 mg Tab] Glimepiride [Amaryl] 4 mg PO DAILY 12/07/21 01/06/22 Multivitamins, Thera [Multivitamin 1 tab PO DAILY 12/07/21 01/06/22 (formulary)] SUMAtriptan succinate [Imitrex] 100 mg PO DAILY PRN 12/07/21 01/06/22 Semaglutide [Rybelsus] 14 mg PO DAILY 01/06/22 01/06/22 Previous Rx's Medication Instructions Recorded Ondansetron Odt [Zofran Odt] 4 mg PO Q8H PRN #12 tab 01/06/22 Ondansetron Odt [Zofran Odt] 4 mg PO Q8HR PRN #15 tab 01/12/22 clindamycin HCL [Cleocin] 300 mg PO Q6HR #40 cap 01/21/22 Cephalexin [Keflex] 500 mg PO Q6HR #40 cap 02/21/22 Promethazine Suppository 25 mg RECTAL TID PRN #15 supp 02/21/22 [Phenergan] Cephalexin [Keflex] 500 mg PO Q12HR 5 Days #10 cap 02/27/22 Fluconazole [Diflucan] 150 mg PO ONCE #1 tab 02/27/22 Cefdinir 300 mg PO Q12HR #14 cap 05/14/22 Baclofen 10 mg PO TID PRN #20 tab 05/24/22 Phenazopyridine HCl [Pyridium] 100 mg PO TID PRN #6 tab 06/05/22 Ondansetron Odt [Zofran Odt] 4 mg PO Q8HR PRN #20 tab 06/21/22 Ondansetron Odt [Zofran Odt] 4 mg PO Q8HR PRN #20 tab 09/06/22 Allergies Allergy/AdvReac Type Severity Reaction Status Date / Time bupropion HCl Allergy Rash/Hives Verified 09/22/22 02:33 [From Wellbutrin] divalproex sodium Allergy Unknown Verified 09/22/22 02:33 [From Depakote] fentanyl Allergy Swelling Verified 09/22/22 02:33 Iodinated Contrast Media Allergy Anaphylaxis Verified 09/22/22 02:33 [Iodinated Contrast Media - IV Dye] orange juice [[place]] Allergy Rash/Hives Verified 09/22/22 02:33 Sulfa (Sulfonamide Allergy Rash/Hives Verified 09/22/22 02:33 Antibiotics) Penicillins AdvReac Rash/Hives/Gi Verified 09/22/22 02:33 Upset Review of Systems ROS Statement: Those systems with pertinent positive or pertinent negative responses have been documented in the HPI. ROS Other: All systems not noted in ROS Statement are negative. 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 History of Any Multi-Drug Resistant Organisms: ESBL Date of last positivie culture/infection: 05/14/17 MDRO Source:: ESBL URINE, Past Surgical History: Bladder Surgery, Section, Cholecystectomy, Hysterectomy, Orthopedic Surgery, Tubal Ligation Additional Past Surgical History / Comment(s): R ovarian cystectomy, laparoscopic surgery for L ovary that had attached to the bowel, D&C, numerous lithotripsies, nephroscopies, cystoscopies and stents to ureters-none in place at this time, L robotic pyeloplasty with post op infection around kidney which then required a picc line/later removed (pt states was not MRSA), L rotator cuff repair, L wrist tendon surgery, colonoscopy. Kidney stone removal. Past Anesthesia/Blood Transfusion Reactions: Family History of Problems w/ Anesthesia Additional Past Anesthesia/Blood Transfusion Reaction / Comment(s): dad-hard time waking up due to enzyme problems in liver Past Psychological History: ADD/ADHD, Anxiety, Bipolar, Depression, PTSD Smoking Status: Current every day smoker Past Alcohol Use History: None Reported Past Drug Use History: None Reported - Past Family History Brother(s) Family Medical History: Cancer Additional Family Medical History / Comment(s): testicular Father Family Medical History: Coronary Artery Disease (CAD), CVA/TIA, Diabetes Mellitus, Renal Disease Additional Family Medical History / Comment(s): GLAUCOMA,NEUROPATHY HAD TRIPLE CABG, at 56yrs from renal disease. Mother Family Medical History: Hyperlipidemia Additional Family Medical History / Comment(s): DDD, HAD 3 vessel CABG AGE 54. General Exam General appearance: alert, in no apparent distress Head exam: Present: atraumatic, normocephalic Eye exam: Present: normal appearance, PERRL ENT exam: Present: normal exam Neck exam: Present: normal inspection. Absent: tenderness, meningismus Respiratory exam: Present: normal lung sounds bilaterally. Absent: respiratory distress Cardiovascular Exam: Present: normal rhythm, tachycardia GI/Abdominal exam: Present: soft. Absent: distended, tenderness Extremities exam: Present: normal inspection, normal capillary refill Back exam: Present: CVA tenderness (L) Neurological exam: Present: alert, oriented X3, CN II-XII intact. Absent: motor sensory deficit Psychiatric exam: Present: normal affect, normal mood Skin exam: Present: warm, dry, intact. Absent: cyanosis, diaphoretic Course Vital Signs 09/22/22 02:28 Temperature 97.6 F Pulse Rate 114 H Respiratory 18 Rate Blood Pressure 105/76 O2 Sat by Pulse 99 Oximetry Medical Decision Making - Medical Decision Making Was pt. sent in by a medical professional or institution (, PA, CONSULTANT DIETITIAN, urgent care, hospital, or jail...) When possible be specific @ -[No] Did you speak to anyone other than the patient for history (EMS, parent, family, police, friend...)? What history was obtained from this source @ -[No] Did you review nursing and triage notes (agree or disagree)? Why? @ -[I reviewed and agree with nursing and triage notes] Were old charts reviewed (outside hosp., previous admission, EMS record, old EKG, old radiological studies, urgent care reports/EKG's, jail records)? Report findings @ -[Review previous white blood cell count, previous hemoglobin, previous kidney function] Differential Diagnosis (chest pain, altered mental status, abdominal pain women, abdominal pain men, vaginal bleeding, weakness, fever, dyspnea, syncope, headac he, dizziness, GI bleed, back pain, seizure, CVA, palpatations, mental health, musculoskeletal)? @ -[Renal colic, pyelonephritis, UTI] EKG interpreted by me (3pts min.). @ -[As above] X-rays interpreted by me (1pt min.). @ -[None done] CT interpreted by me (1pt min.). @ -[None done] U/S interpreted by me (1pt. min.). @ -[None done] What testing was considered but not performed or refused? (CT, X-rays, U/S, labs)? Why? @ -[None] What meds were considered but not given or refused? Why? @ -[None] Did you discuss the management of the patient with other professionals (professionals i.e. , PA, CONSULTANT DIETITIAN, lab, RT, psych nurse, certified social workers in health care, shingle bolt cutter, teacher, transportation security officer, human services case manager)? Give summary @ -[No] Was smoking cessation discussed for >3mins.? @ -[No] Was critical care preformed (if so, how long)? @ -[No] Were there social determinants of health that impacted care today? How? (Homelessness, low income, unemployed, alcoholism, drug addiction, transportation, low edu. Level, literacy, decrease access to med. care, detention, rehab)? @ -[No] Was there de-escalation of care discussed even if they declined (Discuss DNR or withdrawal of care, Hospice)? DNR status @ -[No] What co-morbidities impacted this encounter? (DM, HTN, Smoking, COPD, CAD, Cancer, CVA, ARF, Chemo, Hep., AIDS, mental health diagnosis, sleep apnea, morbid obesity)? @ -[None] Was patient admitted / discharged? Hospital course, mention meds given and route, prescriptions, significant lab abnormalities, going to OR and other pertinent info. @ -[Acute on chronic left flank pain, vomiting, dehydration, leukocytosis which is chronic. Patient will require hematology evaluation for this chronic leukocytosis, she is informed of this. She has urinalysis without signs of infection. Feeling better on reevaluation.] Undiagnosed new problem with uncertain prognosis? @ -[No] Drug Therapy requiring intensive monitoring for toxicity (Heparin, Nitro, Insulin, Cardizem)? @ -[No] Were any procedures done? @ -[No] Diagnosis/symptom? @ -[Left flank pain] Acute, or Chronic, or Acute on Chronic? @ -[Acute on chronic] Uncomplicated (without systemic symptoms) or Complicated (systemic symptoms)? @ -[Uncomplicated] Side effects of treatment? @ -[No] Exacerbation, Progression, or Severe Exacerbation? @ -[No] Poses a threat to life or bodily function? How? (Chest pain, [place], [place], pneumonia, PE, COPD, DKA, ARF, appy, cholecystitis, CVA, Diverticulitis, Homicidal, Suicidal, threat to staff... and all critical care pts) @ -[No] - Lab Data Result diagrams: 09/22/22 02:50 09/22/22 02:50 Lab Results 09/22/22 09/22/22 09/22/22 Range/Units 02:44 02:50 02:50 WBC 17.0 H (3.8-10.6) k/uL RBC 5.56 H (3.80-5.40) m/uL Hgb 16.6 H (11.4-16.0) gm/dL Hct 47.0 H (34.0-46.0) % MCV 84.5 (80.0-100.0) fL MCH 29.9 (25.0-35.0) pg MCHC 35.3 (31.0-37.0) g/dL RDW 12.8 (11.5-15.5) % Plt Count 355 (150-450) k/uL MPV 7.5 Sodium 140 (137-145) mmol/L Potassium 3.8 (3.5-5.1) mmol/L Chloride 104 (98-107) mmol/L Carbon Dioxide 24 (22-30) mmol/L Anion Gap 12 mmol/L BUN 8 (7-17) mg/dL Creatinine 0.68 (0.52-1.04) mg/dL Est GFR (CKD-EPI)AfAm >90 (>60 ml/min/1.73 sqM) Est GFR (CKD-EPI)NonAf >90 (>60 ml/min/1.73 sqM) Glucose 125 H (74-99) mg/dL Calcium 9.7 (8.4-10.2) mg/dL Total Bilirubin 1.1 (0.2-1.3) mg/dL AST 19 (14-36) U/L ALT 24 (4-34) U/L Alkaline Phosphatase 108 (38-126) U/L Total Protein 7.6 (6.3-8.2) g/dL Albumin 4.5 (3.5-5.0) g/dL Urine Color Light Yellow Urine Appearance Clear (Clear) Urine pH 6.0 (5.0-8.0) Ur Specific [place] 1.020 (1.001-1.035) Urine Protein Negative (Negative) Urine Glucose (UA) 4+ H (Negative) Urine Ketones Negative (Negative) Urine Blood Negative (Negative) Urine Nitrite Negative (Negative) Urine Bilirubin Negative (Negative) Urine Urobilinogen <2.0 (<2.0) mg/dL Ur Leukocyte Esterase Negative (Negative) Disposition Clinical Impression: Left flank pain, chronic, Leukocytosis Disposition: HOME SELF-CARE Condition: Fair Instructions (If sedation given, give patient instructions): Leukocytosis (ED), Flank Pain (ED) Is patient prescribed a controlled substance at d/c from ED?: No Referrals: Rajiv Sexton MD [Primary Care Provider] - 1-2 days Brock Weston MD [STAFF PHYSICIAN] - 1-2 days Time of Disposition: 04:05
[2022-09-22] MEDS ORDERED: ONDANSETRON 4 MG/2 ML VIAL IVP STA (04:16)
[2022-09-22 06:20] VITALS: BP 98/62; PULSE 97
== END 2022-09-22 06:21 | disposition home or self-care (01) ==
LOC: EC 02:23
DX: R10.9 Unspecified abdominal pain (principal); D72.829 Elevated white blood cell count, unspecified; E11.9 Type 2 diabetes mellitus without complications; I10 Essential (primary) hypertension; F90.9 Attention-deficit hyperactivity disorder, unspecified type; F41.9 Anxiety disorder, unspecified; F31.9 Bipolar disorder, unspecified; F17.200 Nicotine dependence, unspecified, uncomplicated; Z79.899 Other long term (current) drug therapy; Z88.6 Allergy status to analgesic agent; Z88.0 Allergy status to penicillin; Z91.041 Radiographic dye allergy status; Z79.84 Long term (current) use of oral hypoglycemic drugs; Z88.2 Allergy status to sulfonamides; Z88.1 Allergy status to other antibiotic agents
CPT/HCPCS: 36415; 80053; 85025; 81003; 99284; 96374; 96375 ×2; 96376; 96361; J2270; J2405; J1885

== ENCOUNTER 2022-10-09 01:04 | Emergency (ER) | payer BC, OTHER ==
[2022-10-09 01:23] VITALS: TEMP 98
[2022-10-09] MEDS ORDERED: ONDANSETRON 4 MG/2 ML VIAL IM STA (01:32)
--- NOTE | 2022-10-09 01:36 | ED ---
General Adult HPI - General Chief complaint: Nausea/Vomiting/Diarrhea Stated complaint: Kidney Stone Time Seen by Provider: 10/09/22 01:23 Source: patient Mode of arrival: ambulatory Limitations: no limitations - History of Present Illness Initial comments: Patient is a 47-year-old female well known to our ER presenting with chief complaint of right-sided flank pain. Patient states she has been diagnosed with a 6 mm kidney stone is currently following with urology. Patient is currently on Flomax, Toradol, and Percocet. States that pain is been ongoing all weekend. She also admits to nausea and vomiting. No dysuria. No abdominal pain. No urgency or frequency. Patient states that she had a low-grade fever a few days ago that has since dissipated. - Related Data Home Medications Medication Instructions Recorded Confirmed oxyCODONE-APAP 10-325MG [Percocet 1 tab PO QID PRN 08/29/17 01/06/22 10-325 mg] PARoxetine HCL [Paxil] 40 mg PO DAILY 03/12/18 01/06/22 PARoxetine [Paxil] 20 mg PO DAILY 06/04/18 01/06/22 Loratadine 10 mg PO DAILY 04/21/20 01/06/22 Dapagliflozin Propanediol [Farxiga] 10 mg PO DAILY 12/07/21 01/06/22 Dextroamphetamine/Amphetamine 20 mg PO BID 12/07/21 01/06/22 [Dextroamp-Amphetamin 20 mg Tab] Glimepiride [Amaryl] 4 mg PO DAILY 12/07/21 01/06/22 Multivitamins, Thera [Multivitamin 1 tab PO DAILY 12/07/21 01/06/22 (formulary)] SUMAtriptan succinate [Imitrex] 100 mg PO DAILY PRN 12/07/21 01/06/22 Semaglutide [Rybelsus] 14 mg PO DAILY 01/06/22 01/06/22 Previous Rx's Medication Instructions Recorded Ondansetron Odt [Zofran Odt] 4 mg PO Q8H PRN #12 tab 01/06/22 Ondansetron Odt [Zofran Odt] 4 mg PO Q8HR PRN #15 tab 01/12/22 clindamycin HCL [Cleocin] 300 mg PO Q6HR #40 cap 01/21/22 Cephalexin [Keflex] 500 mg PO Q6HR #40 cap 02/21/22 Promethazine Suppository 25 mg RECTAL TID PRN #15 supp 02/21/22 [Phenergan] Cephalexin [Keflex] 500 mg PO Q12HR 5 Days #10 cap 02/27/22 Fluconazole [Diflucan] 150 mg PO ONCE #1 tab 02/27/22 Cefdinir 300 mg PO Q12HR #14 cap 05/14/22 Baclofen 10 mg PO TID PRN #20 tab 05/24/22 Phenazopyridine HCl [Pyridium] 100 mg PO TID PRN #6 tab 06/05/22 Ondansetron Odt [Zofran Odt] 4 mg PO Q8HR PRN #20 tab 06/21/22 Ondansetron Odt [Zofran Odt] 4 mg PO Q8HR PRN #20 tab 09/06/22 Allergies Allergy/AdvReac Type Severity Reaction Status Date / Time bupropion HCl Allergy Rash/Hives Verified 09/22/22 02:33 [From Wellbutrin] divalproex sodium Allergy Unknown Verified 09/22/22 02:33 [From Depakote] fentanyl Allergy Swelling Verified 09/22/22 02:33 Iodinated Contrast Media Allergy Anaphylaxis Verified 09/22/22 02:33 [Iodinated Contrast Media - IV Dye] orange juice [[place]] Allergy Rash/Hives Verified 09/22/22 02:33 Sulfa (Sulfonamide Allergy Rash/Hives Verified 09/22/22 02:33 Antibiotics) Penicillins AdvReac Rash/Hives/Gi Verified 09/22/22 02:33 Upset Review of Systems ROS Statement: Those systems with pertinent positive or pertinent negative responses have been documented in the HPI. ROS Other: All systems not noted in ROS Statement are negative. 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 History of Any Multi-Drug Resistant Organisms: ESBL Date of last positivie culture/infection: 05/14/17 MDRO Source:: ESBL URINE, Past Surgical History: Bladder Surgery, Section, Cholecystectomy, Hysterectomy, Orthopedic Surgery, Tubal Ligation Additional Past Surgical History / Comment(s): R ovarian cystectomy, laparoscopic surgery for L ovary that had attached to the bowel, D&C, numerous lithotripsies, nephroscopies, cystoscopies and stents to ureters-none in place at this time, L robotic pyeloplasty with post op infection around kidney which then required a picc line/later removed (pt states was not MRSA), L rotator cuff repair, L wrist tendon surgery, colonoscopy. Kidney stone removal. Past Anesthesia/Blood Transfusion Reactions: Family History of Problems w/ Anesthesia Additional Past Anesthesia/Blood Transfusion Reaction / Comment(s): dad-hard time waking up due to enzyme problems in liver Past Psychological History: ADD/ADHD, Anxiety, Bipolar, Depression, PTSD Smoking Status: Current every day smoker Past Alcohol Use History: None Reported Past Drug Use History: None Reported - Past Family History Brother(s) Family Medical History: Cancer Additional Family Medical History / Comment(s): testicular Father Family Medical History: Coronary Artery Disease (CAD), CVA/TIA, Diabetes Mellitus, Renal Disease Additional Family Medical History / Comment(s): GLAUCOMA,NEUROPATHY HAD TRIPLE CABG, at 56yrs from renal disease. Mother Family Medical History: Hyperlipidemia Additional Family Medical History / Comment(s): DDD, HAD 3 vessel CABG AGE 54. General Exam Limitations: no limitations General appearance: alert, in no apparent distress Head exam: Present: atraumatic, normocephalic, normal inspection Eye exam: Present: normal appearance, EOMI Neck exam: Present: normal inspection, full ROM Respiratory exam: Present: normal lung sounds bilaterally. Absent: respiratory distress, wheezes, rales, rhonchi, stridor Cardiovascular Exam: Present: regular rate, normal rhythm, normal heart sounds. Absent: systolic murmur, diastolic murmur, rubs, gallop, clicks Back exam: Present: normal inspection, CVA tenderness (R). Absent: CVA tenderness (L) Neurological exam: Present: alert, oriented X3, CN II-XII intact Psychiatric exam: Present: normal affect, normal mood Skin exam: Present: warm, dry, intact, normal color. Absent: rash Course Vital Signs 10/09/22 01:17 Temperature 98 F Pulse Rate 90 Respiratory 16 Rate Blood Pressure 125/83 O2 Sat by Pulse 97 Oximetry Medical Decision Making - Medical Decision Making Was pt. sent in by a medical professional or institution (, STUART, ASSISTANT FOOD SERVICE MANAGER, urgent ca re, hospital, or [facility]...) When possible be specific @ -No Did you speak to anyone other than the patient for history (EMS, parent, family, police, friend...)? What history was obtained from this source @ -No Did you review nursing and triage notes (agree or disagree)? Why? @ -I reviewed and agree with nursing and triage notes Were old charts reviewed (outside hosp., previous admission, EMS record, old EKG, old radiological studies, urgent care reports/EKG's, [facility] records)? Report findings @ -No old charts were reviewed Differential Diagnosis (chest pain, altered mental status, abdominal pain women, abdominal pain men, vaginal bleeding, weakness, fever, dyspnea, syncope, headache, dizziness, GI bleed, back pain, seizure, CVA, palpatations, mental health, musculoskeletal)? @ - MDM Differential Back Pain: Strain, zoster, cauda equina syndrome, epidural abscess, vertebral osteomyelitis, discitis, fracture, subluxation, disc herniation, DJD, spinal stenosis, dissection, AAA, pancreatitis, peptic ulcer disease, pyelonephritis, kidney stone this is not meant to be an all-inclusive list. EKG interpreted by me (3pts min.). @ -As above X-rays interpreted by me (1pt min.). @ -None done CT interpreted by me (1pt min.). @ -None done U/S interpreted by me (1pt. min.). @ -None done What testing was considered but not performed or refused? (CT, X-rays, U/S, labs)? Why? @ -None What meds were considered but not given or refused? Why? @ -None Did you discuss the management of the patient with other professionals (professionals i.e. STUART Yeager, ASSISTANT FOOD SERVICE MANAGER, lab, RT, psych nurse, social work supervisor, supervisor instant potato processing, teacher, weapons officer naval activity, case resolution specialist)? Give summary @ -No Was smoking cessation discussed for >3mins.? @ -No Was critical care preformed (if so, how long)? @ -No Were there social determinants of health that impacted care today? How? (Homelessness, low income, unemployed, alcoholism, drug addiction, transportation, low edu. Level, literacy, decrease access to med. care, fdc, rehab)? @ -No Was there de-escalation of care discussed even if they declined (Discuss DNR or withdrawal of care, Hospice)? DNR status @ -No What co-morbidities impacted this encounter? (DM, HTN, Smoking, COPD, CAD, Cancer, CVA, ARF, Chemo, Hep., AIDS, mental health diagnosis, sleep apnea, morbid obesity)? @ -None Was patient admitted / discharged? Hospital course, mention meds given and route, prescriptions, significant lab abnormalities, going to OR and other pertinent info. @ -Patient is a 47-year-old female well known to our ER presenting with chief complaint of right-sided flank pain. Patient has a history of kidney stones. Urine shows no evidence of bleeding. Likely musculoskeletal pain. Patient is given lidocaine patch and Zofran for her vomiting. She has Toradol and Percocet at home. Educated on findings on supportive management. Follow-up with PCP. Report back to ER with any new or worsening symptoms. Discussed return parameters and answered all questions. Patient conveyed verbal understanding and agreed to the plan. I discussed this case in detail with my attending Dr. Montgomery Undiagnosed new problem with uncertain prognosis? @ -No Drug Therapy requiring intensive monitoring for toxicity (Heparin, Nitro, Insulin, Cardizem)? @ -No Were any procedures done? @ -No Diagnosis/symptom? @ -Musculoskeletal back pain Acute, or Chronic, or Acute on Chronic? @ -Acute Uncomplicated (without systemic symptoms) or Complicated (systemic symptoms)? @ -Uncomplicated Side effects of treatment? @ -No Exacerbation, Progression, or Severe Exacerbation? @ -No Poses a threat to life or bodily function? How? (Chest pain, [place], [place], pneumonia, PE, COPD, DKA, ARF, appy, cholecystitis, CVA, Diverticulitis, Homicidal, Suicidal, threat to staff... and all critical care pts) @ -No - Lab Data Lab Results 10/09/22 Range/Units 01:42 Urine Color Yellow Urine Appearance Clear (Clear) Urine pH 5.5 (5.0-8.0) Ur Specific [place] 1.033 (1.001-1.035) Urine Protein Negative (Negative) Urine Glucose (UA) 4+ H (Negative) Urine Ketones Negative (Negative) Urine Blood Negative (Negative) Urine Nitrite Negative (Negative) Urine Bilirubin Negative (Negative) Urine Urobilinogen <2.0 (<2.0) mg/dL Ur Leukocyte Esterase Negative (Negative) Disposition Clinical Impression: Musculoskeletal back pain Disposition: HOME SELF-CARE Condition: Good Instructions (If sedation given, give patient instructions): Flank Pain (ED) Additional Instructions: Follow-up with PCP. Report back to ER with any new or worsening symptoms. Take pain medication as prescribed. Is patient prescribed a controlled substance at d/c from ED?: No Referrals: Rajiv Sexton MD [Primary Care Provider] - 1-2 days Time of Disposition: 02:01
[2022-10-09 01:55] LABS: Appearance,Urine Clear (Clear); Bilirubin,Urine Negative (Negative); Blood,Urine Negative (Negative); Color,Urine Yellow; Glucose,Urine (UA) 4+ (Negative); Ketones,Urine Negative (Negative); Leukocyte Esterase,Urine Negative (Negative); Nitrite,Urine Negative (Negative); PH, Urine 5.5 (5.0-8.0); Protein,Urine Negative (Negative); Specific Gravity,Urine 1.033 (1.001-1.035); Urobilinogen,Urine <2.0 mg/dL (<2.0)
[2022-10-09 02:27] VITALS: BP 119/78; PULSE 80; RESP 20
[2022-10-09] MEDS ORDERED: LIDOCAINE 5% PATCH TOPICAL SCH (09:00)
== END 2022-10-09 02:28 | disposition home or self-care (01) ==
LOC: EC 01:04
DX: M54.9 Dorsalgia, unspecified (principal); R11.2 Nausea with vomiting, unspecified; E11.9 Type 2 diabetes mellitus without complications; I10 Essential (primary) hypertension; K21.9 Gastro-esophageal reflux disease without esophagitis; F31.9 Bipolar disorder, unspecified; F41.9 Anxiety disorder, unspecified; F17.200 Nicotine dependence, unspecified, uncomplicated; Z79.84 Long term (current) use of oral hypoglycemic drugs; Z79.899 Other long term (current) drug therapy; Z88.0 Allergy status to penicillin; Z88.2 Allergy status to sulfonamides; Z91.041 Radiographic dye allergy status; Z91.018 Allergy to other foods; Z88.8 Allergy status to other drugs, medicaments and biological substances; Z87.442 Personal history of urinary calculi; Z90.49 Acquired absence of other specified parts of digestive tract
CPT/HCPCS: 81003; 99284; 96372; J2405

== ENCOUNTER 2022-10-31 01:07 | Emergency (ER) | payer BC, OTHER ==
[2022-10-31 01:26] VITALS: RESP 18; TEMP 98.2
[2022-10-31] MEDS ORDERED: SODIUM CHLORIDE 0.9% 1,000 ML IV ONE (01:50)
[2022-10-31] MEDS ORDERED: MORPHINE SULFATE 2 MG/ML SYRINGE IVP ONE (01:50)
[2022-10-31] MEDS ORDERED: ONDANSETRON 4 MG/2 ML VIAL IVP STA (01:51)
--- NOTE | 2022-10-31 01:53 | ED ---
General Adult HPI - General Chief complaint: Abdominal Pain Stated complaint: Vomitting, Kidney Stones Time Seen by Provider: 10/31/22 01:42 Source: patient, RN notes reviewed Mode of arrival: ambulatory Limitations: no limitations - History of Present Illness Initial comments: 47-year-old female presents to the emergency department with a chief complaint of flank pain. Patient reports pain started that started 10/28/2022. Patient is complaining of accompanying symptoms of nausea and vomiting. She reports that she has a history of kidney stones and is unable to see his urologist until . She has attempted to take Flomax, Toradol, Percocet with mild symptomatically relief. She denies any fever, fatigue, chills, cough, chest pain, shortness of breath, abdominal pain, dysuria, melena, hematochezia. She reports that this is a chronic issue and feels the same having normal flank pain. - Related Data Home Medications Medication Instructions Recorded Confirmed oxyCODONE-APAP 10-325MG [Percocet 1 tab PO QID PRN 08/29/17 01/06/22 10-325 mg] PARoxetine HCL [Paxil] 40 mg PO DAILY 03/12/18 01/06/22 PARoxetine [Paxil] 20 mg PO DAILY 06/04/18 01/06/22 Loratadine 10 mg PO DAILY 04/21/20 01/06/22 Dapagliflozin Propanediol [Farxiga] 10 mg PO DAILY 12/07/21 01/06/22 Dextroamphetamine/Amphetamine 20 mg PO BID 12/07/21 01/06/22 [Dextroamp-Amphetamin 20 mg Tab] Glimepiride [Amaryl] 4 mg PO DAILY 12/07/21 01/06/22 Multivitamins, Thera [Multivitamin 1 tab PO DAILY 12/07/21 01/06/22 (formulary)] SUMAtriptan succinate [Imitrex] 100 mg PO DAILY PRN 12/07/21 01/06/22 Semaglutide [Rybelsus] 14 mg PO DAILY 01/06/22 01/06/22 Previous Rx's Medication Instructions Recorded Ondansetron Odt [Zofran Odt] 4 mg PO Q8H PRN #12 tab 01/06/22 Ondansetron Odt [Zofran Odt] 4 mg PO Q8HR PRN #15 tab 01/12/22 clindamycin HCL [Cleocin] 300 mg PO Q6HR #40 cap 01/21/22 Cephalexin [Keflex] 500 mg PO Q6HR #40 cap 02/21/22 Promethazine Suppository 25 mg RECTAL TID PRN #15 supp 02/21/22 [Phenergan] Cephalexin [Keflex] 500 mg PO Q12HR 5 Days #10 cap 02/27/22 Fluconazole [Diflucan] 150 mg PO ONCE #1 tab 02/27/22 Cefdinir 300 mg PO Q12HR #14 cap 05/14/22 Baclofen 10 mg PO TID PRN #20 tab 05/24/22 Phenazopyridine HCl [Pyridium] 100 mg PO TID PRN #6 tab 06/05/22 Ondansetron Odt [Zofran Odt] 4 mg PO Q8HR PRN #20 tab 06/21/22 Ondansetron Odt [Zofran Odt] 4 mg PO Q8HR PRN #20 tab 09/06/22 Allergies Allergy/AdvReac Type Severity Reaction Status Date / Time bupropion HCl Allergy Rash/Hives Verified 10/31/22 01:26 [From Wellbutrin] divalproex sodium Allergy Unknown Verified 10/31/22 01:26 [From Depakote] fentanyl Allergy Swelling Verified 10/31/22 01:26 Iodinated Contrast Media Allergy Anaphylaxis Verified 10/31/22 01:26 [Iodinated Contrast Media - IV Dye] orange juice [[place]] Allergy Rash/Hives Verified 10/31/22 01:26 Sulfa (Sulfonamide Allergy Rash/Hives Verified 10/31/22 01:26 Antibiotics) Penicillins AdvReac Rash/Hives/Gi Verified 10/31/22 01:26 Upset Review of Systems ROS Statement: Those systems with pertinent positive or pertinent negative responses have been documented in the HPI. ROS Other: All systems not noted in ROS Statement are negative. 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 History of Any Multi-Drug Resistant Organisms: ESBL Date of last positivie culture/infection: 05/14/17 MDRO Source:: ESBL URINE, Past Surgical History: Bladder Surgery, Section, Cholecystectomy, Hysterectomy, Orthopedic Surgery, Tubal Ligation Additional Past Surgical History / Comment(s): R ovarian cystectomy, laparoscopic surgery for L ovary that had attached to the bowel, D&C, numerous lithotripsies, nephroscopies, cystoscopies and stents to ureters-none in place at this time, L robotic pyeloplasty with post op infection around kidney which then required a picc line/later removed (pt states was not MRSA), L rotator cuff repair, L wrist tendon surgery, colonoscopy. Kidney stone removal. Past Anesthesia/Blood Transfusion Reactions: Family History of Problems w/ Anesthesia Additional Past Anesthesia/Blood Transfusion Reaction / Comment(s): dad-hard time waking up due to enzyme problems in liver Past Psychological History: ADD/ADHD, Anxiety, Bipolar, Depression, PTSD Smoking Status: Current every day smoker Past Alcohol Use History: None Reported Past Drug Use History: None Reported - Past Family History Brother(s) Family Medical History: Cancer Additional Family Medical History / Comment(s): testicular Father Family Medical History: Coronary Artery Disease (CAD), CVA/TIA, Diabetes Mellitus, Renal Disease Additional Family Medical History / Comment(s): GLAUCOMA,NEUROPATHY HAD TRIPLE CABG, at 56yrs from renal disease. Mother Family Medical History: Hyperlipidemia Additional Family Medical History / Comment(s): DDD, HAD 3 vessel CABG AGE 54. General Exam - General Exam Comments Initial Comments: General: Alert, in no acute distress Head: atraumatic normocephalic. Eyes PERRL, EOMI intact, mucous membranes moist Respiratory: Lungs clear to auscultation bilaterally Cardiovascular: Heart rate regular rate and rhythm Abdominal: Soft without guarding or rebound, no CVA tenderness Extremities: Normal inspection with full range of motion and normal capillary refill Neuroogic: alert and oriented 3, CN II-XII intact, able to ambulate with steady gait Skin: warm dry and intact with normal color Limitations: no limitations Course Vital Signs 10/31/22 01:25 Temperature 98.2 F Pulse Rate 107 H Respiratory 18 Rate Blood Pressure 124/80 O2 Sat by Pulse 100 Oximetry Medical Decision Making - Medical Decision Making Was pt. sent in by a medical professional or institution (STUART Yeager, TELESALES MANAGER, urgent care, hospital, or shelter...) When possible be specific @ -[No] Did you speak to anyone other than the patient for history (EMS, parent, family, police, friend...)? What history was obtained from this source @ -[No] Did you review nursing and triage notes (agree or disagree)? Why? @ -[I reviewed and agree with nursing and triage notes] Were old charts reviewed (outside hosp., previous admission, EMS record, old EKG, old radiological studies, urgent care reports/EKG's, shelter records)? Report findings @ -[No old charts were reviewed] Differential Diagnosis (chest pain, altered mental status, abdominal pain women, abdominal pain men, vaginal bleeding, weakness, fever, dyspnea, syncope, headache, dizziness, GI bleed, back pain, seizure, CVA, palpatations, mental health, musculoskeletal)? @ -[not applicable] EKG interpreted by me (3pts min.). @ -[As above] X-rays interpreted by me (1pt min.). @ -[None done] CT interpreted by me (1pt min.). @ -[None done] U/S interpreted by me (1pt. min.). @ -[None done] What testing was considered but not performed or refused? (CT, X-rays, U/S, labs)? Why? @ -[None] What meds were considered but not given or refused? Why? @ -[None] Did you discuss the management of the patient with other professionals (professionals i.e. STUART Yeager, TELESALES MANAGER, lab, RT, psych nurse, mental health social worker, cardiac cath lab radiology technologist, teacher, air control/anti air warfare officer, case management coordinator)? Give summary @ -[No] Was smoking cessation discussed for >3mins.? @ -[No] Was critical care preformed (if so, how long)? @ -[No] Were there social determinants of health that impacted care today? How? (Homelessness, low income, unemployed, alcoholism, drug addiction, transportation, low edu. Level, literacy, decrease access to med. care, snf, rehab)? @ -[No] Was there de-escalation of care discussed even if they declined (Discuss DNR or withdrawal of care, Hospice)? DNR status @ -[No] What co-morbidities impacted this encounter? (DM, HTN, Smoking, COPD, CAD, Cancer, CVA, ARF, Chemo, Hep., AIDS, mental health diagnosis, sleep apnea, morbid obesity)? @ -[None] Was patient admitted / discharged? Hospital course, mention meds given and route, prescriptions, significant lab abnormalities, going to OR and other pertinent info. @ -Discharged. This is a 47 year-old male who presents the emergency department with FLANK PAIN. Patient had a thorough history and physical exam performed, physical exam reveals heart rate regular rate and rhythm, lungs clear to auscultation bilaterally abdomen is soft and non-tender. Patient able to ambulate with a steady gait. No neurological deficits are noted. patient had lab work and imaging performed which was essentially unremarkable. Patient given morphine and 1L IV fluids with symptomatic relief. I discussed the results in detail with the patient verbalized understanding and all questions were addressed. Return precautions were discussed at length. Discharged in stable condition. Case [facility] who agrees with plan of care Undiagnosed new problem with uncertain prognosis? @ -[No] Drug Therapy requiring intensive monitoring for toxicity (Heparin, Nitro, Insulin, Cardizem)? @ -[No] Were any procedures done? @ -[No] Diagnosis/symptom? @ -flank pain -hematuria Acute, or Chronic, or Acute on Chronic? @ -acute Uncomplicated (without systemic symptoms) or Complicated (systemic symptoms)? @ -uncomplicated Side effects of treatment? @ -[No] Exacerbation, Progression, or Severe Exacerbation? @ -[No] Poses a threat to life or bodily function? How? (Chest pain, [place], [place], pneumonia, PE, COPD, DKA, ARF, appy, cholecystitis, CVA, Diverticulitis, Homicidal, Suicidal, threat to staff... and all critical care pts) @ low likelihood - Lab Data Lab Results 10/31/22 Range/Units 02:03 Urine Color Yellow Urine Appearance Cloudy H (Clear) Urine pH 6.0 (5.0-8.0) Ur Specific [place] 1.020 (1.001-1.035) Urine Protein Trace H (Negative) Urine Glucose (UA) Negative (Negative) Urine Ketones Negative (Negative) Urine Blood Large H (Negative) Urine Nitrite Negative (Negative) Urine Bilirubin Negative (Negative) Urine Urobilinogen <2.0 (<2.0) mg/dL Ur Leukocyte Esterase Negative (Negative) Urine RBC >182 H (0-5) /hpf Urine WBC 3 (0-5) /hpf Ur Squamous Epith Cells 6 H (0-4) /hpf Urine Bacteria Rare H (None) /hpf Urine Mucus Occasional H (None) /hpf Disposition Clinical Impression: Flank pain Disposition: HOME SELF-CARE Condition: Stable Additional Instructions: Follow-up with urology sometime this week Please return to the nearest emergency department if symptoms worsen or persist Is patient prescribed a controlled substance at d/c from ED?: No Referrals: Rajiv Sexton MD [Primary Care Provider] - 1-2 days Time of Disposition: 02:53
[2022-10-31 02:41] LABS: Appearance,Urine Cloudy (Clear); Bacteria,Urine Rare /hpf; Bilirubin,Urine Negative (Negative); Blood,Urine Large (Negative); Color,Urine Yellow; Glucose,Urine (UA) Negative (Negative); Ketones,Urine Negative (Negative); Leukocyte Esterase,Urine Negative (Negative); Mucus,Urine Occasional /hpf; Nitrite,Urine Negative (Negative); Protein,Urine Trace (Negative); RBC,Urine >182 /hpf (0-5); Squamous Epithelial Cell,Urine 6 /hpf (0-4); Urobilinogen,Urine <2.0 mg/dL (<2.0); WBC,Urine 3 /hpf (0-5)
[2022-10-31 03:07] VITALS: BP 108/78; PULSE 69
== END 2022-10-31 03:07 | disposition home or self-care (01) ==
LOC: EC 01:07
DX: R10.9 Unspecified abdominal pain (principal); E11.9 Type 2 diabetes mellitus without complications; K21.9 Gastro-esophageal reflux disease without esophagitis; E78.5 Hyperlipidemia, unspecified; I10 Essential (primary) hypertension; F41.9 Anxiety disorder, unspecified; F32.A Depression, unspecified; F17.200 Nicotine dependence, unspecified, uncomplicated; Z88.2 Allergy status to sulfonamides; Z88.0 Allergy status to penicillin; Z91.041 Radiographic dye allergy status; Z79.899 Other long term (current) drug therapy
CPT/HCPCS: 81001; 99284; 96374; 96375; 96361; J2405; J2270

== ENCOUNTER 2022-11-04 00:24 | Emergency (ER) | payer OTHER ==
[2022-11-04 00:33] VITALS: RESP 18
[2022-11-04] MEDS ORDERED: SODIUM CHLORIDE 0.9% 1,000 ML IV STA (00:43)
[2022-11-04] MEDS ORDERED: METOCLOPRAMIDE 5 MG/ML 2 ML VIAL IVP STA (00:45)
[2022-11-04] MEDS ORDERED: HYDROmorphone 0.5 MG/0.5 ML SYRINGE IVP STA (00:46)
[2022-11-04 01:15] LABS: Basophils % (A) 0 %; Eosinophils # (A) 0.4 k/uL (0-0.7); Eosinophils % (A) 3 %; HCT 41.7 % (34.0-46.0); HGB 14.5 gm/dL (11.4-16.0); Lymphocytes # (A) 5.3 k/uL (1.0-4.8); Lymphocytes % (A) 43 %; MCH 29.4 pg (25.0-35.0); MCHC 34.8 g/dL (31.0-37.0); MCV 84.5 fL (80.0-100.0); Mean Platelet Volume 7.5; Monocytes # (A) 0.5 k/uL (0-1.0); Monocytes % (A) 4 %; Neutrophils % (A) 48 %; Platelet Count 309 k/uL (150-450); RBC 4.93 m/uL (3.80-5.40); RDW 12.5 % (11.5-15.5); WBC 12.4 k/uL (3.8-10.6)
[2022-11-04 01:22] LABS: Appearance,Urine Clear (Clear); Bacteria,Urine Occasional /hpf; Bilirubin,Urine Negative (Negative); Blood,Urine Large (Negative); Color,Urine Yellow; Glucose,Urine (UA) Negative (Negative); Ketones,Urine Negative (Negative); Leukocyte Esterase,Urine Negative (Negative); Mucus,Urine Rare /hpf; Nitrite,Urine Negative (Negative); Protein,Urine Trace (Negative); RBC,Urine 88 /hpf (0-5); Specific Gravity,Urine 1.002 (1.001-1.035); Squamous Epithelial Cell,Urine 1 /hpf (0-4); Urobilinogen,Urine <2.0 mg/dL (<2.0); WBC,Urine 4 /hpf (0-5)
[2022-11-04 01:28] LABS: ALT 23 U/L (4-34); AST 20 U/L (14-36); African American GFR (CKD) >90 (>60 ml/min/1.73 sqM); Alkaline Phosphatase 83 U/L (38-126); Anion Gap 13 mmol/L; Blood Urea Nitrogen 6 mg/dL (7-17); Calcium 8.9 mg/dL (8.4-10.2); Carbon Dioxide 21 mmol/L (22-30); Chloride 105 mmol/L (98-107); Glucose 117 mg/dL (74-99); Non-African American GFR(CKD) >90 (>60 ml/min/1.73 sqM); Potassium 3.5 mmol/L (3.5-5.1); Sodium 139 mmol/L (137-145); Total Bilirubin 0.5 mg/dL (0.2-1.3); Total Protein 6.6 g/dL (6.3-8.2)
--- NOTE | 2022-11-04 01:53 | ED ---
Abdominal Pain HPI - General Chief Complaint: Abdominal Pain Stated Complaint: KIDNEY STONES Time Seen by Provider: 11/04/22 00:40 Source: patient Mode of arrival: ambulatory Limitations: no limitations - History of Present Illness Initial Comments: Patient is a 47-year-old female presents to the emergency department for right sided pain. Patient has history of chronic right flank apparently due to kidney stones. She is well known in our emergency department. Patient also has chronic hematuria. Patient states she has increased pain today. She took her Percocet and Toradol with little relief. She reports nausea without any vomiting. No fever or chills. No burning with urination, urinary frequency/urgency. States her urologist is removing the kidney stone at week. - Related Data Home Medications Medication Instructions Recorded Confirmed oxyCODONE-APAP 10-325MG [Percocet 1 tab PO QID PRN 08/29/17 01/06/22 10-325 mg] PARoxetine HCL [Paxil] 40 mg PO DAILY 03/12/18 01/06/22 PARoxetine [Paxil] 20 mg PO DAILY 06/04/18 01/06/22 Loratadine 10 mg PO DAILY 04/21/20 01/06/22 Dapagliflozin Propanediol [Farxiga] 10 mg PO DAILY 12/07/21 01/06/22 Dextroamphetamine/Amphetamine 20 mg PO BID 12/07/21 01/06/22 [Dextroamp-Amphetamin 20 mg Tab] Glimepiride [Amaryl] 4 mg PO DAILY 12/07/21 01/06/22 Multivitamins, Thera [Multivitamin 1 tab PO DAILY 12/07/21 01/06/22 (formulary)] SUMAtriptan succinate [Imitrex] 100 mg PO DAILY PRN 12/07/21 01/06/22 Semaglutide [Rybelsus] 14 mg PO DAILY 01/06/22 01/06/22 Previous Rx's Medication Instructions Recorded Ondansetron Odt [Zofran Odt] 4 mg PO Q8H PRN #12 tab 01/06/22 Ondansetron Odt [Zofran Odt] 4 mg PO Q8HR PRN #15 tab 01/12/22 clindamycin HCL [Cleocin] 300 mg PO Q6HR #40 cap 01/21/22 Cephalexin [Keflex] 500 mg PO Q6HR #40 cap 02/21/22 Promethazine Suppository 25 mg RECTAL TID PRN #15 supp 02/21/22 [Phenergan] Cephalexin [Keflex] 500 mg PO Q12HR 5 Days #10 cap 02/27/22 Fluconazole [Diflucan] 150 mg PO ONCE #1 tab 02/27/22 Cefdinir 300 mg PO Q12HR #14 cap 05/14/22 Baclofen 10 mg PO TID PRN #20 tab 05/24/22 Phenazopyridine HCl [Pyridium] 100 mg PO TID PRN #6 tab 06/05/22 Ondansetron Odt [Zofran Odt] 4 mg PO Q8HR PRN #20 tab 06/21/22 Ondansetron Odt [Zofran Odt] 4 mg PO Q8HR PRN #20 tab 09/06/22 Allergies Allergy/AdvReac Type Severity Reaction Status Date / Time bupropion HCl Allergy Rash/Hives Verified 11/04/22 00:29 [From Wellbutrin] divalproex sodium Allergy Unknown Verified 11/04/22 00:29 [From Depakote] fentanyl Allergy Swelling Verified 11/04/22 00:29 Iodinated Contrast Media Allergy Anaphylaxis Verified 11/04/22 00:29 [Iodinated Contrast Media - IV Dye] orange juice [[place]] Allergy Rash/Hives Verified 11/04/22 00:29 Sulfa (Sulfonamide Allergy Rash/Hives Verified 11/04/22 00:29 Antibiotics) Penicillins AdvReac Rash/Hives/Gi Verified 11/04/22 00:29 Upset Review of Systems ROS Statement: Those systems with pertinent positive or pertinent negative responses have been documented in the HPI. ROS Other: All systems not noted in ROS Statement are negative. 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 History of Any Multi-Drug Resistant Organisms: ESBL Date of last positivie culture/infection: 05/14/17 MDRO Source:: ESBL URINE, Past Surgical History: Bladder Surgery, Section, Cholecystectomy, Hy sterectomy, Orthopedic Surgery, Tubal Ligation Additional Past Surgical History / Comment(s): R ovarian cystectomy, laparoscopic surgery for L ovary that had attached to the bowel, D&C, numerous lithotripsies, nephroscopies, cystoscopies and stents to ureters-none in place at this time, L robotic pyeloplasty with post op infection around kidney which then required a picc line/later removed (pt states was not MRSA), L rotator cuff repair, L wrist tendon surgery, colonoscopy. Kidney stone removal. Past Anesthesia/Blood Transfusion Reactions: Family History of Problems w/ Anesthesia Additional Past Anesthesia/Blood Transfusion Reaction / Comment(s): dad-hard time waking up due to enzyme problems in liver Past Psychological History: ADD/ADHD, Anxiety, Bipolar, Depression, PTSD Smoking Status: Current every day smoker Past Alcohol Use History: None Reported Past Drug Use History: None Reported - Past Family History Brother(s) Family Medical History: Cancer Additional Family Medical History / Comment(s): testicular Father Family Medical History: Coronary Artery Disease (CAD), CVA/TIA, Diabetes Mellitu s, Renal Disease Additional Family Medical History / Comment(s): GLAUCOMA,NEUROPATHY HAD TRIPLE CABG, at 56yrs from renal disease. Mother Family Medical History: Hyperlipidemia Additional Family Medical History / Comment(s): DDD, HAD 3 vessel CABG AGE 54. General Exam Limitations: no limitations General appearance: alert, in no apparent distress Head exam: Present: atraumatic, normocephalic, normal inspection Eye exam: Present: normal appearance, PERRL, EOMI. Absent: scleral icterus, co njunctival injection, periorbital swelling Respiratory exam: Present: normal lung sounds bilaterally. Absent: respiratory distress, wheezes, rales, rhonchi, stridor Cardiovascular Exam: Present: regular rate, normal rhythm, normal heart sounds. Absent: systolic murmur, diastolic murmur, rubs, gallop, clicks GI/Abdominal exam: Present: soft, normal bowel sounds. Absent: distended, tenderness, guarding, rebound, rigid Back exam: Present: normal inspection, CVA tenderness (R) (mild). Absent: CVA tenderness (L), paraspinal tenderness, vertebral tenderness Neurological exam: Present: alert, oriented X3, CN II-XII intact Psychiatric exam: Present: normal affect, normal mood Skin exam: Present: warm, dry, intact, normal color. Absent: rash Course Vital Signs 11/04/22 11/04/22 00:29 01:59 Temperature 97.9 F 98.2 F Pulse Rate 95 91 Respiratory 18 18 Rate Blood Pressure 125/79 105/60 O2 Sat by Pulse 98 100 Oximetry Medical Decision Making - Medical Decision Making Was pt. sent in by a medical professional or institution (, PA, NUT PACKER, urgent care, hospital, or [facility]...) When possible be specific @ -No Did you speak to anyone other than the patient for history (EMS, parent, family, police, friend...)? What history was obtained from this source @ -No Did you review nursing and triage notes (agree or disagree)? Why? @ -I reviewed and agree with nursing and triage notes Were old charts reviewed (outside hosp., previous admission, EMS record, old EKG, old radiological studies, urgent care reports/EKG's, [facility] records)? Report findings @ -No old charts were reviewed Differential Diagnosis (chest pain, altered mental status, abdominal pain women, abdominal pain men, vaginal bleeding, weakness, fever, dyspnea, syncope, headache, dizziness, GI bleed, back pain, seizure, CVA, palpatations, mental health)? @ -Differential Abdominal Pain Women: Appendicitis, Cholecystitis, diverticulosis, ischemic bowel, pancreatitis, hepatitis, UTI, gastroenteritis, AAA, incarcerated hernia, bowel obstruction, constipation, inflammatory bowel, hepatitis, peptic ulcer disease, splenic infarction, perforated viscus, vulvitis, ovarian torsion, PID, kidney stone, placenta abruption, this is not meant to be an all-inclusive list EKG interpreted by me (3pts min.). @ -As above X-rays interpreted by me (1pt min.). @ -None done CT interpreted by me (1pt min.). @ -None done U/S interpreted by me (1pt. min.). @ -None done What testing was considered but not performed or refused? (CT, X-rays, U/S, labs)? Why? @ -None What meds were considered but not given or refused? Why? @ -None Did you discuss the management of the patient with other professionals (neto chappell i.e. , PA, NUT PACKER, lab, RT, psych nurse, social work professor, shoulder puncher, teacher, tactical intelligence officer, caseworker intake)? Give summary @ -No Was smoking cessation discussed for >3mins.? @ -No Was critical care preformed (if so, how long)? @ -No Were there social determinants of health that impacted care today? How? (Homelessness, low income, unemployed, alcoholism, drug addiction, transportation, low edu. Level, literacy, decrease access to med. care, residential, rehab)? @ -No Was there de-escalation of care discussed even if they declined (Discuss DNR or withdrawal of care, Hospice)? DNR status @ -No What co-morbidities impacted this encounter? (DM, HTN, Smoking, COPD, CAD, Cancer, CVA, ARF, Chemo, Hep., AIDS, mental health diagnosis, sleep apnea, morbid obesity)? @ -None Was patient admitted / discharged? Hospital course, mention meds given and route, prescriptions, significant lab abnormalities, going to OR and other pertinent info. @ -Discharge. Patient has pain consistent with her chronic kidney stone pain. She is feeling improved after pain medication. Labs relatively unremarkable. Patient is in stable medical condition for discharge. She will follow up with urology Undiagnosed new problem with uncertain prognosis? @ -No Drug Therapy requiring intensive monitoring for toxicity (Heparin, Nitro, Insulin, Cardizem)? @ -No Were any procedures done? @ -No Diagnosis/symptom? @ chronic right flank pain Acute, or Chronic, or Acute on Chronic? @ -acute Uncomplicated (without systemic symptoms) or Complicated (systemic symptoms)? @ -uncomplicated Side effects of treatment? @ -No Exacerbation, Progression, or Severe Exacerbation? @ -No Poses a threat to life or bodily function? How? (Chest pain, [place], [place], pneumonia, PE, COPD, DKA, ARF, appy, cholecystitis, CVA, Diverticulitis, Homicidal, Suicidal, threat to staff... and all critical care pts) @ -No Dr. Ellington is my attending - Lab Data Result diagrams: 11/04/22 00:56 11/04/22 00:56 Lab Results 05/13/23 05/13/23 05/13/23 Range/Units 00:56 00:56 00:56 WBC 12.4 H (3.8-10.6) k/uL RBC 4.93 (3.80-5.40) m/uL Hgb 14.5 (11.4-16.0) gm/dL Hct 41.7 (34.0-46.0) % MCV 84.5 (80.0-100.0) fL MCH 29.4 (25.0-35.0) pg MCHC 34.8 (31.0-37.0) g/dL RDW 12.5 (11.5-15.5) % Plt Count 309 (150-450) k/uL MPV 7.5 Neutrophils % 48 % Lymphocytes % 43 % Monocytes % 4 % Eosinophils % 3 % Basophils % 0 % Neutrophils # 6.0 (1.3-7.7) k/uL Lymphocytes # 5.3 H (1.0-4.8) k/uL Monocytes # 0.5 (0-1.0) k/uL Eosinophils # 0.4 (0-0.7) k/uL Basophils # 0.0 (0-0.2) k/uL Sodium 139 (137-145) mmol/L Potassium 3.5 (3.5-5.1) mmol/L Chloride 105 (98-107) mmol/L Carbon Dioxide 21 L (22-30) mmol/L Anion Gap 13 mmol/L BUN 6 L (7-17) mg/dL Creatinine 0.54 (0.52-1.04) mg/dL Est GFR (CKD-EPI)AfAm >90 (>60 ml/min/1.73 sqM) Est GFR (CKD-EPI)NonAf >90 (>60 ml/min/1.73 sqM) Glucose 117 H (74-99) mg/dL Calcium 8.9 (8.4-10.2) mg/dL Total Bilirubin 0.5 (0.2-1.3) mg/dL AST 20 (14-36) U/L ALT 23 (4-34) U/L Alkaline Phosphatase 83 (38-126) U/L Total Protein 6.6 (6.3-8.2) g/dL Albumin 4.0 (3.5-5.0) g/dL Urine Color Yellow Urine Appearance Clear (Clear) Urine pH 6.0 (5.0-8.0) Ur Specific [place] 1.002 (1.001-1.035) Urine Protein Trace H (Negative) Urine Glucose (UA) Negative (Negative) Urine Ketones Negative (Negative) Urine Blood Large H (Negative) Urine Nitrite Negative (Negative) Urine Bilirubin Negative (Negative) Urine Urobilinogen <2.0 (<2.0) mg/dL Ur Leukocyte Esterase Negative (Negative) Urine RBC 88 H (0-5) /hpf Urine WBC 4 (0-5) /hpf Ur Squamous Epith Cells 1 (0-4) /hpf Urine Bacteria Occasional H (None) /hpf Urine Mucus Rare H (None) /hpf Disposition Clinical Impression: Right flank pain, chronic Disposition: HOME SELF-CARE Condition: Good Instructions (If sedation given, give patient instructions): Kidney Stones (ED) Additional Instructions: Please follow-up with urology in 1-2 days. Return to the emergency department if you experience new, concerning, or worsening symptoms. Is patient prescribed a controlled substance at d/c from ED?: No Referrals: Rajiv Sexton MD [Primary Care Provider] - 1-2 days
[2022-11-04 02:02] VITALS: BP 105/60; PULSE 91; TEMP 98.2
== END 2022-11-04 01:59 | disposition home or self-care (01) ==
LOC: EC 00:24
DX: G89.29 Other chronic pain (principal); R10.9 Unspecified abdominal pain; E11.9 Type 2 diabetes mellitus without complications; I10 Essential (primary) hypertension; F31.9 Bipolar disorder, unspecified; F41.9 Anxiety disorder, unspecified; F17.200 Nicotine dependence, unspecified, uncomplicated; Z79.84 Long term (current) use of oral hypoglycemic drugs; Z79.899 Other long term (current) drug therapy; Z88.0 Allergy status to penicillin; Z88.2 Allergy status to sulfonamides; Z88.8 Allergy status to other drugs, medicaments and biological substances; Z91.041 Radiographic dye allergy status; Z91.018 Allergy to other foods; Z90.49 Acquired absence of other specified parts of digestive tract
CPT/HCPCS: 36415; 80053; 85025; 81001; 99284; 96374; 96375; 96361; J2765; J1170

== ENCOUNTER 2022-11-22 22:31 | Emergency (ER) | payer OTHER ==
[2022-11-23 00:04] LABS: Appearance,Urine Cloudy (Clear); Bilirubin,Urine Negative (Negative); Blood,Urine Negative (Negative); Color,Urine Yellow; Glucose,Urine (UA) Negative (Negative); Hyaline Casts,Urine 27 /lpf (0-2); Ketones,Urine Trace (Negative); Leukocyte Esterase,Urine Small (Negative); Mucus,Urine Many /hpf; Nitrite,Urine Negative (Negative); PH, Urine 5.5 (5.0-8.0); Protein,Urine 1+ (Negative); RBC,Urine 1 /hpf (0-5); Specific Gravity,Urine 1.036 (1.001-1.035); Squamous Epithelial Cell,Urine 14 /hpf (0-4); WBC,Urine 6 /hpf (0-5)
[2022-11-23] MEDS ORDERED: METOCLOPRAMIDE 5 MG/ML 2 ML VIAL IVP STA (00:50)
[2022-11-23] MEDS ORDERED: SODIUM CHLORIDE 0.9% 500 ML 500 ML IV STA (00:50)
[2022-11-23] MEDS ORDERED: MORPHINE SULFATE 4 MG/ML SYRINGE IVP STA (00:55)
[2022-11-23] MEDS ORDERED: KETOROLAC 15 MG/ML 1 ML VIAL IVP STA (00:55)
--- NOTE | 2022-11-23 00:55 | ED ---
General Adult HPI - General Chief complaint: Abdominal Pain Stated complaint: Left side pain Time Seen by Provider: 11/23/22 00:41 Source: patient, RN notes reviewed, old records reviewed Mode of arrival: ambulatory Limitations: no limitations - History of Present Illness Initial comments: Nontoxic-appearing 47-year-old female presents to emergency room with left flank pain for 2 days with persistent nausea vomiting. States has a history of kidney stones and recently had a 5 mm stone removed by Dr. Lockett out of [place] 2 weeks ago. The pain is now on the left side. Denies any fevers. States that she did take Toradol, Percocet, Flomax and Zofran prior to arrival with no relief. She does have a history of cholecystectomy and hysterectomy, Diabetes, hypertension, GERD, hyperlipidemia and colitis. -: days(s) (2) Location: left Severity scale (1-10): 8 Quality: constant Consistency: constant Improves with: none Associated Symptoms: nausea/vomiting Treatments Prior to Arrival: other (Toradol, Zofran, Flomax and Percocet) - Related Data Home Medications Medication Instructions Recorded Confirmed oxyCODONE-APAP 10-325MG [Percocet 1 tab PO QID PRN 08/29/17 01/06/22 10-325 mg] PARoxetine HCL [Paxil] 40 mg PO DAILY 03/12/18 01/06/22 PARoxetine [Paxil] 20 mg PO DAILY 06/04/18 01/06/22 Loratadine 10 mg PO DAILY 04/21/20 01/06/22 Dapagliflozin Propanediol [Farxiga] 10 mg PO DAILY 12/07/21 01/06/22 Dextroamphetamine/Amphetamine 20 mg PO BID 12/07/21 01/06/22 [Dextroamp-Amphetamin 20 mg Tab] Glimepiride [Amaryl] 4 mg PO DAILY 12/07/21 01/06/22 Multivitamins, Thera [Multivitamin 1 tab PO DAILY 12/07/21 01/06/22 (formulary)] SUMAtriptan succinate [Imitrex] 100 mg PO DAILY PRN 12/07/21 01/06/22 Semaglutide [Rybelsus] 14 mg PO DAILY 01/06/22 01/06/22 Previous Rx's Medication Instructions Recorded Ondansetron Odt [Zofran Odt] 4 mg PO Q8H PRN #12 tab 01/06/22 Ondansetron Odt [Zofran Odt] 4 mg PO Q8HR PRN #15 tab 01/12/22 clindamycin HCL [Cleocin] 300 mg PO Q6HR #40 cap 01/21/22 Cephalexin [Keflex] 500 mg PO Q6HR #40 cap 02/21/22 Promethazine Suppository 25 mg RECTAL TID PRN #15 supp 02/21/22 [Phenergan] Cephalexin [Keflex] 500 mg PO Q12HR 5 Days #10 cap 02/27/22 Fluconazole [Diflucan] 150 mg PO ONCE #1 tab 02/27/22 Cefdinir 300 mg PO Q12HR #14 cap 05/14/22 Baclofen 10 mg PO TID PRN #20 tab 05/24/22 Phenazopyridine HCl [Pyridium] 100 mg PO TID PRN #6 tab 06/05/22 Ondansetron Odt [Zofran Odt] 4 mg PO Q8HR PRN #20 tab 06/21/22 Ondansetron Odt [Zofran Odt] 4 mg PO Q8HR PRN #20 tab 09/06/22 Allergies Allergy/AdvReac Type Severity Reaction Status Date / Time bupropion HCl Allergy Rash/Hives Verified 11/22/22 22:35 [From Wellbutrin] divalproex sodium Allergy Unknown Verified 11/22/22 22:35 [From Depakote] fentanyl Allergy Swelling Verified 11/22/22 22:35 Iodinated Contrast Media Allergy Anaphylaxis Verified 11/22/22 22:35 [Iodinated Contrast Media - IV Dye] orange juice [[place]] Allergy Rash/Hives Verified 11/22/22 22:35 Sulfa (Sulfonamide Allergy Rash/Hives Verified 11/22/22 22:35 Antibiotics) Penicillins AdvReac Rash/Hives/Gi Verified 11/22/22 22:35 Upset Review of Systems ROS Statement: Those systems with pertinent positive or pertinent negative responses have been documented in the HPI. ROS Other: All systems not noted in ROS Statement are negative. 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 History of Any Multi-Drug Resistant Organisms: ESBL Date of last positivie culture/infection: 05/14/17 MDRO Source:: ESBL URINE, Past Surgical History: Bladder Surgery, Section, Cholecystectomy, Hysterectomy, Orthopedic Surgery, Tubal Ligation Additional Past Surgical History / Comment(s): R ovarian cystectomy, l aparoscopic surgery for L ovary that had attached to the bowel, D&C, numerous lithotripsies, nephroscopies, cystoscopies and stents to ureters-none in place at this time, L robotic pyeloplasty with post op infection around kidney which then required a picc line/later removed (pt states was not MRSA), L rotator cuff repair, L wrist tendon surgery, colonoscopy. Kidney stone removal. Past Anesthesia/Blood Transfusion Reactions: Family History of Problems w/ Anesthesia Additional Past Anesthesia/Blood Transfusion Reaction / Comment(s): dad-hard ti me waking up due to enzyme problems in liver Past Psychological History: ADD/ADHD, Anxiety, Bipolar, Depression, PTSD Smoking Status: Current every day smoker Past Alcohol Use History: None Reported Past Drug Use History: None Reported - Past Family History Brother(s) Family Medical History: Cancer Additional Family Medical History / Comment(s): testicular Father Family Medical History: Coronary Artery Disease (CAD), CVA/TIA, Diabetes Mellitus, Renal Disease Additional Family Medical History / Comment(s): GLAUCOMA,NEUROPATHY HAD TRIPLE CABG, at 56yrs from renal disease. Mother Family Medical History: Hyperlipidemia Additional Family Medical History / Comment(s): DDD, HAD 3 vessel CABG AGE 54. General Exam Limitations: no limitations General appearance: alert, in no apparent distress Head exam: Present: atraumatic Eye exam: Present: normal appearance. Absent: scleral icterus, conjunctival injection, periorbital swelling, periorbital tenderness ENT exam: Present: mucous membranes moist Respiratory exam: Present: normal lung sounds bilaterally. Absent: respiratory distress, accessory muscle use Cardiovascular Exam: Present: tachycardia GI/Abdominal exam: Present: soft. Absent: distended, tenderness, guarding, rebound, rigid Extremities exam: Present: full ROM, normal capillary refill. Absent: tenderness, pedal edema Neurological exam: Present: alert, oriented X3 Psychiatric exam: Present: normal affect, normal mood Skin exam: Present: warm, dry, normal color. Absent: cyanosis, diaphoretic, petechiae, pallor Course Vital Signs 11/22/22 11/23/22 22:32 02:39 Temperature 97.6 F 98.2 F Pulse Rate 111 H 89 Respiratory 20 16 Rate Blood Pressure 118/80 104/68 O2 Sat by Pulse 99 98 Oximetry Medical Decision Making - Medical Decision Making Was pt. sent in by a medical professional or institution (, STUART, CASE MANAGEMENT COORDINATOR, urgent care, hospital, or usp...) When possible be specific @ -No Did you speak to anyone other than the patient for history (EMS, parent, family, police, friend...)? What history was obtained from this source @ -No Did you review nursing and triage notes (agree or disagree)? Why? @ -I reviewed and agree with nursing and triage notes Were old charts reviewed (outside hosp., previous admission, EMS record, old EKG, old radiological studies, urgent care reports/EKG's, usp records)? Report findings @ -Previous ER visits multiple times this year, ultrasound reports KUB and CT reports Differential Diagnosis (chest pain, altered mental status, abdominal pain women, abdominal pain men, vaginal bleeding, weakness, fever, dyspnea, syncope, headache, dizziness, GI bleed, back pain, seizure, CVA, palpatations, mental health, musculoskeletal)? @ -Hydronephrosis, pyelonephritis, renal calculi, UTI EKG interpreted by me (3pts min.). @ -n/a X-rays interpreted by me (1pt min.). @ -None done CT interpreted by me (1pt min.). @ -None done U/S interpreted by me (1pt. min.). @ -no What testing was considered but not performed or refused? (CT, X-rays, U/S, labs)? Why? @ -None What meds were considered but not given or refused? Why? @ -None Did you discuss the management of the patient with other professionals (professionals i.e. , STUART, CASE MANAGEMENT COORDINATOR, lab, RT, psych nurse, social service manager, gameplay programmer, teacher, workplace rehabilitation officer, family caseworker)? Give summary @ -No Was smoking cessation discussed for >3mins.? @ -No Was critical care preformed (if so, how long)? @ -No Were there social determinants of health that impacted care today? How? (Homelessness, low income, unemployed, alcoholism, drug addiction, transportation, low edu. Level, literacy, decrease access to med. care, nursing home, rehab)? @ -No Was there de-escalation of care discussed even if they declined (Discuss DNR or withdrawal of care, Hospice)? DNR status @ -No What co-morbidities impacted this encounter? (DM, HTN, Smoking, COPD, CAD, Cancer, CVA, ARF, Chemo, Hep., AIDS, mental health diagnosis, sleep apnea, morbid obesity)? @ -She does have a history of cholecystectomy and hysterectomy, Diabetes, hyper tension, GERD, ADHD, anxiety, bipolar, depression, PTSD, smoking, hyperlipidemia and colitis. Was patient admitted / discharged? Hospital course, mention meds given and route, prescriptions, significant lab abnormalities, going to OR and other pertinent info. @ -Discharged Nontoxic-appearing 47-year-old female presents with left flank pain for 2 days with persistent nausea vomiting. States has a history of kidney stones and recently had a 5 mm stone removed by Dr. Lockett out of [place] 2 weeks ago. The pain is now on the left side. Denies any fevers. States that she did take Toradol, Percocet, Flomax and Zofran prior to arrival with no relief. Patient's been the emergency room multiple times for complaints of kidney stone pain. Multiple KUB x-rays and ultrasounds performed showing no evidence of renal calculi. CT was performed 05/14/2022 showing a calculus in the proximal right ureter with no evidence of hydronephrosis or hydroureter. Labs show mild leukocytosis consistent with that patient's previous labs. Urinalysis negative for blood. 14 squamous cells. No evidence of bacteria or nitrites. Ultrasound shows left kidney measuring 11.4 x 5.5 x 4.6 cm with mild hydronephrosis. No mass or calculus is seen. Electrolytes, show no concerning findings, lactic acid is negative Patient was given Toradol, morphine, IV fluids and Reglan with relief of her symptoms. Patient does have chronic kidney / flank pain. Instructed to continue her previously prescribed medications. Follow-up with her primary care doctor and urologist. Return to the emergency room for any new or concerning symptoms. She is agreeable to this plan of care. Case was discussed with Dr. Montgomery. Undiagnosed new problem with uncertain prognosis? @ -No Drug Therapy requiring intensive monitoring for toxicity (Heparin, Nitro, Insulin, Cardizem)? @ -No Were any procedures done? @ -No Diagnosis/symptom? @ -Mild hydronephrosis left Acute, or Chronic, or Acute on Chronic? @ -Acute on chronic Uncomplicated (without systemic symptoms) or Complicated (systemic symptoms)? @ -Uncomplicated Side effects of treatment? @ -No Exacerbation, Progression, or Severe Exacerbation? @ -No Poses a threat to life or bodily function? How? (Chest pain, [place], [place], pneumonia, PE, COPD, DKA, ARF, appy, cholecystitis, CVA, Diverticulitis, Homicidal, Suici alisa, threat to staff... and all critical care pts) @ -No - Lab Data Result diagrams: 11/23/22 01:00 11/23/22 01:00 Lab Results 11/22/22 11/23/22 11/23/22 Range/Units 22:35 01:00 01:00 WBC 12.3 H (3.8-10.6) k/uL RBC 4.95 (3.80-5.40) m/uL Hgb 14.8 (11.4-16.0) gm/dL Hct 42.1 (34.0-46.0) % MCV 85.0 (80.0-100.0) fL MCH 29.8 (25.0-35.0) pg MCHC 35.0 (31.0-37.0) g/dL RDW 12.6 (11.5-15.5) % Plt Count 275 (150-450) k/uL MPV 7.8 Neutrophils % 39 % Lymphocytes % 46 % Monocytes % 5 % Eosinophils % 8 % Basophils % 0 % Neutrophils # 4.9 (1.3-7.7) k/uL Lymphocytes # 5.7 H (1.0-4.8) k/uL Monocytes # 0.6 (0-1.0) k/uL Eosinophils # 0.9 H (0-0.7) k/uL Basophils # 0.0 (0-0.2) k/uL Sodium 133 L (137-145) mmol/L Potassium 3.6 (3.5-5.1) mmol/L Chloride 103 (98-107) mmol/L Carbon Dioxide 18 L (22-30) mmol/L Anion Gap 12 mmol/L BUN 11 (7-17) mg/dL Creatinine 0.67 (0.52-1.04) mg/dL Est GFR (CKD-EPI)AfAm >90 (>60 ml/min/1.73 sqM) Est GFR (CKD-EPI)NonAf >90 (>60 ml/min/1.73 sqM) Glucose 111 H (74-99) mg/dL Plasma Lactic Acid Brant (0.7-2.0) mmol/L Calcium 9.4 (8.4-10.2) mg/dL Total Bilirubin 1.0 (0.2-1.3) mg/dL AST 29 (14-36) U/L ALT 25 (4-34) U/L Alkaline Phosphatase 70 (38-126) U/L Total Protein 7.0 (6.3-8.2) g/dL Albumin 4.2 (3.5-5.0) g/dL Amylase 42 (30-110) U/L Lipase 94 (23-300) U/L Urine Color Yellow Urine Appearance Cloudy H (Clear) Urine pH 5.5 (5.0-8.0) Ur Specific Schriever 1.036 H (1.001-1.035) Urine Protein 1+ H (Negative) Urine Glucose (UA) Negative (Negative) Urine Ketones Trace H (Negative) Urine Blood Negative (Negative) Urine Nitrite Negative (Negative) Urine Bilirubin Negative (Negative) Urine Urobilinogen 2.0 (<2.0) mg/dL Ur Leukocyte Esterase Small H (Negative) Urine RBC 1 (0-5) /hpf Urine WBC 6 H (0-5) /hpf Ur Squamous Epith Cells 14 H (0-4) /hpf Hyaline Casts 27 H (0-2) /lpf Urine Mucus Many H (None) /hpf 11/23/22 Range/Units 01:00 WBC (3.8-10.6) k/uL RBC (3.80-5.40) m/uL Hgb (11.4-16.0) gm/dL Hct (34.0-46.0) % MCV (80.0-100.0) fL MCH (25.0-35.0) pg MCHC (31.0-37.0) g/dL RDW (11.5-15.5) % Plt Count (150-450) k/uL MPV Neutrophils % % Lymphocytes % % Monocytes % % Eosinophils % % Basophils % % Neutrophils # (1.3-7.7) k/uL Lymphocytes # (1.0-4.8) k/uL Monocytes # (0-1.0) k/uL Eosinophils # (0-0.7) k/uL Basophils # (0-0.2) k/uL Sodium (137-145) mmol/L Potassium (3.5-5.1) mmol/L Chloride (98-107) mmol/L Carbon Dioxide (22-30) mmol/L Anion Gap mmol/L BUN (7-17) mg/dL Creatinine (0.52-1.04) mg/dL Est GFR (CKD-EPI)AfAm (>60 ml/min/1.73 sqM) Est GFR (CKD-EPI)NonAf (>60 ml/min/1.73 sqM) Glucose (74-99) mg/dL Plasma Lactic Acid Brant 1.8 (0.7-2.0) mmol/L Calcium (8.4-10.2) mg/dL Total Bilirubin (0.2-1.3) mg/dL AST (14-36) U/L ALT (4-34) U/L Alkaline Phosphatase (38-126) U/L Total Protein (6.3-8.2) g/dL Albumin (3.5-5.0) g/dL Amylase (30-110) U/L Lipase (23-300) U/L Urine Color Urine Appearance (Clear) Urine pH (5.0-8.0) Ur Specific [place] (1.001-1.035) Urine Protein (Negative) Urine Glucose (UA) (Negative) Urine Ketones (Negative) Urine Blood (Negative) Urine Nitrite (Negative) Urine Bilirubin (Negative) Urine Urobilinogen (<2.0) mg/dL Ur Leukocyte Esterase (Negative) Urine RBC (0-5) /hpf Urine WBC (0-5) /hpf Ur Squamous Epith Cells (0-4) /hpf Hyaline Casts (0-2) /lpf Urine Mucus (None) /hpf Disposition Clinical Impression: Hydronephrosis, left Disposition: HOME SELF-CARE Condition: Good Instructions (If sedation given, give patient instructions): Hydronephrosis (ED) Additional Instructions: Increase your fluid intake and take your medications as previously prescribed including Toradol, Flomax and Tylenol. Follow-up with urologist this week. Return to the emergency room with any new or concerning symptoms Is patient prescribed a controlled substance at d/c from ED?: No Referrals: Rajiv Sexton MD [Primary Care Provider] - 1-2 days Time of Disposition: 02:33
--- NOTE | 2022-11-23 01:49 | US ---
EXAM: US Retroperitoneal Limited, Renal CLINICAL HISTORY: US Reason: uti, back pain, hx of kidney stones TECHNIQUE: Real-time limited ultrasound of the retroperitoneum with image documentation. COMPARISON: June 13, 2022 FINDINGS: Right kidney: The right kidney measures 10.1 x 4.7 x 5.1 cm. No stones. No hydronephrosis. Left kidney: The left kidney measures 11.4 x 5.5 x 4.6 cm with mild hydronephrosis. No mass or calculus is seen. Bladder: The urinary bladder is partially distended with an unremarkable appearance. IMPRESSION: The left kidney measures 11.4 x 5.5 x 4.6 cm with mild hydronephrosis. No mass or calculus is seen.
[2022-11-23 01:56] LABS: Basophils % (A) 0 %; Eosinophils # (A) 0.9 k/uL (0-0.7); Eosinophils % (A) 8 %; HCT 42.1 % (34.0-46.0); HGB 14.8 gm/dL (11.4-16.0); Lymphocytes # (A) 5.7 k/uL (1.0-4.8); Lymphocytes % (A) 46 %; MCH 29.8 pg (25.0-35.0); Mean Platelet Volume 7.8; Monocytes # (A) 0.6 k/uL (0-1.0); Monocytes % (A) 5 %; Neutrophils # (A) 4.9 k/uL (1.3-7.7); Neutrophils % (A) 39 %; Platelet Count 275 k/uL (150-450); RBC 4.95 m/uL (3.80-5.40); RDW 12.6 % (11.5-15.5); WBC 12.3 k/uL (3.8-10.6)
[2022-11-23 02:20] LABS: ALT 25 U/L (4-34); AST 29 U/L (14-36); African American GFR (CKD) >90 (>60 ml/min/1.73 sqM); Albumin 4.2 g/dL (3.5-5.0); Alkaline Phosphatase 70 U/L (38-126); Amylase 42 U/L (30-110); Anion Gap 12 mmol/L; Blood Urea Nitrogen 11 mg/dL (7-17); Calcium 9.4 mg/dL (8.4-10.2); Carbon Dioxide 18 mmol/L (22-30); Chloride 103 mmol/L (98-107); Glucose 111 mg/dL (74-99); Lipase 94 U/L (23-300); Non-African American GFR(CKD) >90 (>60 ml/min/1.73 sqM); Potassium 3.6 mmol/L (3.5-5.1); Sodium 133 mmol/L (137-145)
[2022-11-23 02:40] VITALS: BP 104/68; PULSE 89; RESP 16; TEMP 98.2
== END 2022-11-23 03:08 | disposition home or self-care (01) ==
LOC: EC 22:31
DX: N13.30 Unspecified hydronephrosis (principal); E11.9 Type 2 diabetes mellitus without complications; E78.5 Hyperlipidemia, unspecified; I10 Essential (primary) hypertension; F41.9 Anxiety disorder, unspecified; F31.9 Bipolar disorder, unspecified; F17.200 Nicotine dependence, unspecified, uncomplicated; Z91.041 Radiographic dye allergy status; Z88.2 Allergy status to sulfonamides; Z88.0 Allergy status to penicillin; Z88.8 Allergy status to other drugs, medicaments and biological substances; Z79.899 Other long term (current) drug therapy
CPT/HCPCS: 36415; 80053; 82150; 83605; 83690; 85025; 81001; 76770; 99285; 96374; 96375 ×2; 96361; J2270; J2765; J1885

== ENCOUNTER 2023-01-17 23:08 | Emergency (ER) | payer BC, OTHER ==
[2023-01-17 23:17] VITALS: TEMP 98
[2023-01-17] MEDS ORDERED: ONDANSETRON 4 MG/2 ML VIAL IVP STA (23:37)
[2023-01-17] MEDS ORDERED: SODIUM CHLORIDE 0.9% 500 ML 500 ML IV STA (23:37)
[2023-01-17] MEDS ORDERED: PANTOPRAZOLE 40 MG/10 ML VIAL IVP STA (23:37)
[2023-01-17] MEDS ORDERED: SODIUM CHLORIDE 0.9% 1,000 ML IV STA (23:37)
[2023-01-17] MEDS ORDERED: HYDROmorphone 1 MG/ML 1 ML SYRINGE IVP STA (23:39)
[2023-01-17] MEDS ORDERED: diphenhydrAMINE 50 MG/ML 1 ML VIAL IVP STA (23:39)
--- NOTE | 2023-01-17 23:40 | ED ---
Recheck HPI - General Chief Complaint: Urogenital Stated Complaint: Kidney Stone Time Seen by Provider: 01/17/23 23:17 Source: patient, RN notes reviewed, old records reviewed Mode of arrival: ambulatory Limitations: no limitations - History of Present Illness Initial Comments: This is a 47-year-old female to the emergency department for evaluation. Erich nelson who presents today for evaluation of severe abdominal pain severe back pain left flank pain and some dysuria with suprapubic tenderness. Mild nausea no active vomiting. No fevers no diarrhea no other complaints of travel show sick contacts. Patient is having problems with vomiting unable to keep down home medications MD Complaint: abnormal lab (Blood in the urine and flank pain) -: days(s) Returns Today for: persistent/worsening pain related to initial visit Symptoms Since Prior Visit: worsening pain Associated Symptoms: none Treatments Prior to Arrival: Given Pain Meds on, other (0) - Related Data Home Medications Medication Instructions Recorded Confirmed oxyCODONE-APAP 10-325MG [Percocet 1 tab PO QID PRN 08/29/17 01/06/22 10-325 mg] PARoxetine HCL [Paxil] 40 mg PO DAILY 03/12/18 01/06/22 PARoxetine [Paxil] 20 mg PO DAILY 06/04/18 01/06/22 Loratadine 10 mg PO DAILY 04/21/20 01/06/22 Dapagliflozin Propanediol [Farxiga] 10 mg PO DAILY 12/07/21 01/06/22 Dextroamphetamine/Amphetamine 20 mg PO BID 12/07/21 01/06/22 [Dextroamp-Amphetamin 20 mg Tab] Glimepiride [Amaryl] 4 mg PO DAILY 12/07/21 01/06/22 Multivitamins, Thera [Multivitamin 1 tab PO DAILY 12/07/21 01/06/22 (formulary)] SUMAtriptan succinate [Imitrex] 100 mg PO DAILY PRN 12/07/21 01/06/22 Semaglutide [Rybelsus] 14 mg PO DAILY 01/06/22 01/06/22 Previous Rx's Medication Instructions Recorded Ondansetron Odt [Zofran Odt] 4 mg PO Q8H PRN #12 tab 01/06/22 Ondansetron Odt [Zofran Odt] 4 mg PO Q8HR PRN #15 tab 01/12/22 clindamycin HCL [Cleocin] 300 mg PO Q6HR #40 cap 01/21/22 Cephalexin [Keflex] 500 mg PO Q6HR #40 cap 02/21/22 Promethazine Suppository 25 mg RECTAL TID PRN #15 supp 02/21/22 [Phenergan] Cephalexin [Keflex] 500 mg PO Q12HR 5 Days #10 cap 02/27/22 Fluconazole [Diflucan] 150 mg PO ONCE #1 tab 02/27/22 Cefdinir 300 mg PO Q12HR #14 cap 05/14/22 Baclofen 10 mg PO TID PRN #20 tab 05/24/22 Phenazopyridine HCl [Pyridium] 100 mg PO TID PRN #6 tab 06/05/22 Ondansetron Odt [Zofran Odt] 4 mg PO Q8HR PRN #20 tab 06/21/22 Ondansetron Odt [Zofran Odt] 4 mg PO Q8HR PRN #20 tab 09/06/22 Allergies Allergy/AdvReac Type Severity Reaction Status Date / Time bupropion HCl Allergy Rash/Hives Verified 01/17/23 23:17 [From Wellbutrin] divalproex sodium Allergy Unknown Verified 01/17/23 23:17 [From Depakote] fentanyl Allergy Swelling Verified 01/17/23 23:17 Iodinated Contrast Media Allergy Anaphylaxis Verified 01/17/23 23:17 [Iodinated Contrast Media - IV Dye] orange juice [[place]] Allergy Rash/Hives Verified 01/17/23 23:17 Sulfa (Sulfonamide Allergy Rash/Hives Verified 01/17/23 23:17 Antibiotics) Penicillins AdvReac Rash/Hives/Gi Verified 01/17/23 23:17 Upset Review of Systems ROS Statement: Those systems with pertinent positive or pertinent negative responses have been documented in the HPI. ROS Other: All systems not noted in ROS Statement are negative. 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 History of Any Multi-Drug Resistant Organisms: ESBL Date of last positivie culture/infection: 05/14/17 MDRO Source:: ESBL URINE, Past Surgical History: Bladder Surgery, Section, Cholecystectomy, Hysterectomy, Orthopedic Surgery, Tubal Ligation Additional Past Surgical History / Comment(s): R ovarian cystectomy, laparoscopic surgery for L ovary that had attached to the bowel, D&C, numerous lithotripsies, nephroscopies, cystoscopies and stents to ureters-none in place at this time, L robotic pyeloplasty with post op infection around kidney which then required a picc line/later removed (pt states was not MRSA), L rotator cuff repair, L wrist tendon surgery, colonoscopy. Kidney stone removal. Past Anesthesia/Blood Transfusion Reactions: Family History of Problems w/ Anesthesia Additional Past Anesthesia/Blood Transfusion Reaction / Comment(s): dad-hard time waking up due to enzyme problems in liver Past Psychological History: ADD/ADHD, Anxiety, Bipolar, Depression, PTSD Smoking Status: Current every day smoker Past Alcohol Use History: None Reported Past Drug Use History: None Reported - Past Family History Brother(s) Family Medical History: Cancer Additional Family Medical History / Comment(s): testicular Father Family Medical History: Coronary Artery Disease (CAD), CVA/TIA, Diabetes Mellitus, Renal Disease Additional Family Medical History / Comment(s): GLAUCOMA,NEUROPATHY HAD TRIPLE CABG, at 56yrs from renal disease. Mother Family Medical History: Hyperlipidemia Additional Family Medical History / Comment(s): DDD, HAD 3 vessel CABG AGE 54. General Exam Limitations: no limitations General appearance: alert, in no apparent distress Head exam: Present: atraumatic, normocephalic, normal inspection Eye exam: Present: normal appearance, PERRL, EOMI. Absent: scleral icterus, conjunctival injection, periorbital swelling ENT exam: Present: normal exam, mucous membranes moist Neck exam: Present: normal inspection. Absent: tenderness, meningismus, lymphadenopathy Respiratory exam: Present: normal lung sounds bilaterally. Absent: respiratory distress, wheezes, rales, rhonchi, stridor Cardiovascular Exam: Present: regular rate, normal rhythm, normal heart sounds. Absent: systolic murmur, diastolic murmur, rubs, gallop, clicks GI/Abdominal exam: Present: soft, normal bowel sounds. Absent: distended, tenderness, guarding, rebound, rigid Extremities exam: Present: normal inspection, full ROM, normal capillary refill. Absent: tenderness, pedal edema, joint swelling, calf tenderness Back exam: Present: normal inspection Neurological exam: Present: alert, oriented X3, CN II-XII intact Psychiatric exam: Present: normal affect, normal mood Skin exam: Present: warm, dry, intact, normal color. Absent: rash Course Vital Signs 01/17/23 01/18/23 23:15 02:15 Temperature 98.0 F Pulse Rate 104 H 96 Respiratory 22 18 Rate Blood Pressure 121/86 115/63 O2 Sat by Pulse 97 96 Oximetry - Reevaluation(s) Reevaluation #1: 01/17/23 23:40 Medical record is reviewed Reevaluation #2: Patient's pain is resolved here in the ER Reevaluation #3: Patient is informed of results questions answered Reevaluation #4: 01/17/23 23:40 Was pt. sent in by a medical professional or institution (, PA, [facility], urgent care, hospital, or long term...) When possible be specific @ -no Did you speak to anyone other than the patient for history (EMS, parent, family, police, friend...)? What history was obtained from this source @ -no Did you review nursing and triage notes (agree or disagree)? Why? @ -agree Are old charts reviewed (outside hosp., previous admission, EMS record, old EKG, old radiological studies, urgent care reports/EKG's, long term records)? Report findings @ -yes Differential Diagnosis (chest pain, altered mental status, abdominal pain women, abdominal pain men, vaginal bleeding, weakness, fever, dyspnea, syncope, headache, dizziness, GI bleed, back pain, seizure, CVA, palpatations, mental health, musculoskeletal)? @ -prior EKG interpreted by me (3pts min.). @ -no X-rays interpreted by me (1pt min.). @ -no CT interpreted by me (1pt min.). @ -no U/S interpreted by me (1pt. min.). @ -no What testing was considered but not performed or refused? (CT, X-rays, U/S, labs)? Why? @ -none What meds were considered but not given or refused? Why? @ -none Did you discuss the management of the patient with other professionals (professionals i.e. , PA, [facility], lab, RT, psych nurse, social media community manager, customer service operator, teacher, plain clothes police officer, residential case manager)? Give summary @ -no Was smoking cessation discussed for >3mins.? @ -no Was critical care preformed (if so, how long)? @ -no Were there social determinants of health that impacted care today? How? (Homelessness, low income, unemployed, alcoholism, drug addiction, transportation, low edu. Level, literacy, decrease access to med. care, skilled nursing, rehab)? @ -none Was there de-escalation of care discussed even if they declined (Discuss DNR or withdrawal of care, Hospice)? DNR status @ -no What co-morbidities impacted this encounter? (DM, HTN, Smoking, COPD, CAD, Cancer, CVA, ARF, Chemo, Hep., AIDS, mental health diagnosis, sleep apnea, morb id obesity)? @ -none Was patient admitted / discharged? Hospital course, mention meds given and rou te, prescriptions, significant lab abnormalities, going to OR and other pertinent info. @ - 47 female to the emergency department for evaluation patient with chronic pain control issues. Patient has flank pain here in the ER but no evidence of urinary tract infection nausea vomiting is resolved pain is controlled can be discharged Discharge Undiagnosed new problem with uncertain prognosis? @ -no Drug Therapy requiring intensive monitoring for toxicity (Heparin, Nitro, Insulin, Cardizem)? @ -no Were any procedures done? @ -no Diagnosis/symptom? @ -Flank pain chronic pain Acute, or Chronic, or Acute on Chronic? @ -Acute Uncomplicated (without systemic symptoms) or Complicated (systemic symptoms)? @ -Complicated Side effects of treatment? @ -no Exacerbation, Progression, or Severe Exacerbation? @ -exacerbation Poses a threat to life or bodily function? How? (Chest pain, USA, CT, pneumonia, PE, COPD, DKA, ARF, appy, cholecystitis, CVA, Diverticulitis, Homicidal, Suicidal, threat to staff... and all critical care pts) @ -no Reevaluation #5: 01/17/23 23:40 Differential Abdominal Pain Men: Appendicitis, cholecystitis, diverticulosis, ischemic bowel, pancreatitis, hepatitis, UTI, gastroenteritis, AAA, incarcerated hernia, bowel obstruction, constipation, inflammatory bowel, hepatitis, peptic ulcer disease, splenic infarction, perforated viscus, testicular torsion, this is not meant to be an all-inclusive list Medical Decision Making - Medical Decision Making 47 female to the emergency department for evaluation patient with chronic pain control issues. Patient has flank pain here in the ER but no evidence of urinary tract infection nausea vomiting is resolved pain is controlled can be discharged - Lab Data Result diagrams: 01/18/23 00:15 01/18/23 00:15 Lab Results 01/18/23 01/18/23 01/18/23 Range/Units 00:15 00:15 00:15 WBC 12.1 H (3.8-10.6) k/uL RBC 5.15 (3.80-5.40) m/uL Hgb 15.7 (11.4-16.0) gm/dL Hct 45.2 (34.0-46.0) % MCV 87.7 (80.0-100.0) fL MCH 30.4 (25.0-35.0) pg MCHC 34.7 (31.0-37.0) g/dL RDW 12.6 (11.5-15.5) % Plt Count 298 (150-450) k/uL MPV 7.8 Neutrophils % 45 % Lymphocytes % 45 % Monocytes % 5 % Eosinophils % 4 % Basophils % 1 % Neutrophils # 5.4 (1.3-7.7) k/uL Lymphocytes # 5.4 H (1.0-4.8) k/uL Monocytes # 0.6 (0-1.0) k/uL Eosinophils # 0.4 (0-0.7) k/uL Basophils # 0.1 (0-0.2) k/uL Sodium 136 L (137-145) mmol/L Potassium 3.6 (3.5-5.1) mmol/L Chloride 101 (98-107) mmol/L Carbon Dioxide 23 (22-30) mmol/L Anion Gap 12 mmol/L BUN 10 (7-17) mg/dL Creatinine 0.61 (0.52-1.04) mg/dL Est GFR (CKD-EPI)AfAm >90 (>60 ml/min/1.73 sqM) Est GFR (CKD-EPI)NonAf >90 (>60 ml/min/1.73 sqM) Glucose 140 H (74-99) mg/dL Plasma Lactic Acid Brant (0.7-2.0) mmol/L Calcium 9.4 (8.4-10.2) mg/dL Total Bilirubin 0.7 (0.2-1.3) mg/dL AST 26 (14-36) U/L ALT 29 (4-34) U/L Alkaline Phosphatase 81 (38-126) U/L Total Protein 7.3 (6.3-8.2) g/dL Albumin 4.4 (3.5-5.0) g/dL Amylase 51 (30-110) U/L Lipase 179 (23-300) U/L Urine Color Charmaine Urine Appearance Cloudy H (Clear) Urine pH 6.0 (5.0-8.0) Ur Specific [place] >1.030 (1.001-1.035) Urine Protein Trace (Negative) Urine Glucose (UA) Negative (Negative) Urine Ketones Negative (Negative) Urine Blood Moderate (Negative) Urine Nitrite Negative (Negative) Urine Bilirubin Negative (Negative) Urine Urobilinogen <2.0 (<2.0) mg/dL Ur Leukocyte Esterase Negative (Negative) Urine RBC >182 H (0-5) /hpf Urine WBC 0 (0-5) /hpf Calcium Oxalate Crystal Moderate H (None) /hpf Urine Bacteria 0 (None) /hpf Hyaline Casts 0 (0-2) /lpf Urine Mucus Moderate H (None) /hpf 01/18/23 Range/Units 00:15 WBC (3.8-10.6) k/uL RBC (3.80-5.40) m/uL Hgb (11.4-16.0) gm/dL Hct (34.0-46.0) % MCV (80.0-100.0) fL MCH (25.0-35.0) pg MCHC (31.0-37.0) g/dL RDW (11.5-15.5) % Plt Count (150-450) k/uL MPV Neutrophils % % Lymphocytes % % Monocytes % % Eosinophils % % Basophils % % Neutrophils # (1.3-7.7) k/uL Lymphocytes # (1.0-4.8) k/uL Monocytes # (0-1.0) k/uL Eosinophils # (0-0.7) k/uL Basophils # (0-0.2) k/uL Sodium (137-145) mmol/L Potassium (3.5-5.1) mmol/L Chloride (98-107) mmol/L Carbon Dioxide (22-30) mmol/L Anion Gap mmol/L BUN (7-17) mg/dL Creatinine (0.52-1.04) mg/dL Est GFR (CKD-EPI)AfAm (>60 ml/min/1.73 sqM) Est GFR (CKD-EPI)NonAf (>60 ml/min/1.73 sqM) Glucose (74-99) mg/dL Plasma Lactic Acid Brant 1.6 (0.7-2.0) mmol/L Calcium (8.4-10.2) mg/dL Total Bilirubin (0.2-1.3) mg/dL AST (14-36) U/L ALT (4-34) U/L Alkaline Phosphatase (38-126) U/L Total Protein (6.3-8.2) g/dL Albumin (3.5-5.0) g/dL Amylase (30-110) U/L Lipase (23-300) U/L Urine Color Urine Appearance (Clear) Urine pH (5.0-8.0) Ur Specific [place] (1.001-1.035) Urine Protein (Negative) Urine Glucose (UA) (Negative) Urine Ketones (Negative) Urine Blood (Negative) Urine Nitrite (Negative) Urine Bilirubin (Negative) Urine Urobilinogen (<2.0) mg/dL Ur Leukocyte Esterase (Negative) Urine RBC (0-5) /hpf Urine WBC (0-5) /hpf Calcium Oxalate Crystal (None) /hpf Urine Bacteria (None) /hpf Hyaline Casts (0-2) /lpf Urine Mucus (None) /hpf Disposition Clinical Impression: Abdominal pain, Ureterolithiasis, Left flank pain Disposition: HOME SELF-CARE Condition: Good Instructions (If sedation given, give patient instructions): Abdominal Pain (ED) Is patient prescribed a controlled substance at d/c from ED?: No Referrals: Rajiv Sexton MD [Primary Care Provider] - 1-2 days Time of Disposition: 01:50
[2023-01-18 00:45] LABS: ALT 29 U/L (4-34); AST 26 U/L (14-36); African American GFR (CKD) >90 (>60 ml/min/1.73 sqM); Albumin 4.4 g/dL (3.5-5.0); Alkaline Phosphatase 81 U/L (38-126); Amylase 51 U/L (30-110); Anion Gap 12 mmol/L; Blood Urea Nitrogen 10 mg/dL (7-17); Calcium 9.4 mg/dL (8.4-10.2); Carbon Dioxide 23 mmol/L (22-30); Chloride 101 mmol/L (98-107); Glucose 140 mg/dL (74-99); Lipase 179 U/L (23-300); Non-African American GFR(CKD) >90 (>60 ml/min/1.73 sqM); Potassium 3.6 mmol/L (3.5-5.1); Sodium 136 mmol/L (137-145); Total Bilirubin 0.7 mg/dL (0.2-1.3); Total Protein 7.3 g/dL (6.3-8.2)
[2023-01-18 01:23] LABS: Appearance,Urine Cloudy (Clear); Color,Urine Amber
[2023-01-18 01:24] LABS: Bilirubin,Urine Negative (Negative); Glucose,Urine (UA) Negative (Negative); Ketones,Urine Negative (Negative); Protein,Urine Trace (Negative); Specific Gravity,Urine >1.030 (1.001-1.035)
[2023-01-18 01:25] LABS: Blood,Urine Moderate (Negative); Leukocyte Esterase,Urine Negative (Negative); Nitrite,Urine Negative (Negative); Urobilinogen,Urine <2.0 mg/dL (<2.0)
[2023-01-18 01:31] LABS: Basophils # (A) 0.1 k/uL (0-0.2); Basophils % (A) 1 %; Eosinophils # (A) 0.4 k/uL (0-0.7); Eosinophils % (A) 4 %; HCT 45.2 % (34.0-46.0); HGB 15.7 gm/dL (11.4-16.0); Lymphocytes # (A) 5.4 k/uL (1.0-4.8); Lymphocytes % (A) 45 %; MCH 30.4 pg (25.0-35.0); MCHC 34.7 g/dL (31.0-37.0); MCV 87.7 fL (80.0-100.0); Mean Platelet Volume 7.8; Monocytes # (A) 0.6 k/uL (0-1.0); Monocytes % (A) 5 %; Neutrophils # (A) 5.4 k/uL (1.3-7.7); Neutrophils % (A) 45 %; Platelet Count 298 k/uL (150-450); RBC 5.15 m/uL (3.80-5.40); RDW 12.6 % (11.5-15.5); WBC 12.1 k/uL (3.8-10.6)
[2023-01-18 01:51] LABS: Calcium Oxalate Crystals,Urine Moderate /hpf
[2023-01-18 01:52] LABS: Mucus,Urine Moderate /hpf; RBC,Urine >182 /hpf (0-5); WBC,Urine 0 /hpf (0-5)
[2023-01-18 01:54] LABS: Bacteria,Urine 0 /hpf; Hyaline Casts,Urine 0 /lpf (0-2)
[2023-01-18 02:16] VITALS: BP 115/63; PULSE 96; RESP 18
== END 2023-01-18 02:16 | disposition home or self-care (01) ==
LOC: EC 23:08
DX: N20.2 Calculus of kidney with calculus of ureter (principal); E11.9 Type 2 diabetes mellitus without complications; I10 Essential (primary) hypertension; F17.200 Nicotine dependence, unspecified, uncomplicated; Z79.84 Long term (current) use of oral hypoglycemic drugs; Z86.59 Personal history of other mental and behavioral disorders; Z88.2 Allergy status to sulfonamides; Z88.0 Allergy status to penicillin; Z91.041 Radiographic dye allergy status; Z88.6 Allergy status to analgesic agent; Z88.8 Allergy status to other drugs, medicaments and biological substances; Z91.018 Allergy to other foods
CPT/HCPCS: 36415; 80053; 82150; 83605; 83690; 85025; 81001; 99283; 96374; 96375 ×3; 96361 ×2; J1200; J2405; J1170; C9113

== ENCOUNTER 2023-03-11 00:59 | Emergency (ER) | payer OTHER ==
[2023-03-11 01:04] VITALS: RESP 18; TEMP 96.8
[2023-03-11] MEDS ORDERED: SODIUM CHLORIDE 0.9% 1,000 ML IV ONE (01:15)
[2023-03-11] MEDS ORDERED: KETOROLAC 15 MG/ML 1 ML VIAL IVP STA (01:15)
[2023-03-11 02:07] LABS: Appearance,Urine Clear (Clear); Bacteria,Urine Rare /hpf; Bilirubin,Urine Negative (Negative); Blood,Urine Large (Negative); Color,Urine Yellow; Glucose,Urine (UA) Negative (Negative); Ketones,Urine Negative (Negative); Leukocyte Esterase,Urine Negative (Negative); Nitrite,Urine Negative (Negative); PH, Urine 5.5 (5.0-8.0); Protein,Urine Negative (Negative); RBC,Urine >182 /hpf (0-5); Specific Gravity,Urine 1.009 (1.001-1.035); Squamous Epithelial Cell,Urine 2 /hpf (0-4); Urobilinogen,Urine <2.0 mg/dL (<2.0); WBC,Urine 7 /hpf (0-5)
--- NOTE | 2023-03-11 02:21 | ED ---
Abdominal Pain HPI - General Chief Complaint: Abdominal Pain Stated Complaint: Kidney stones Time Seen by Provider: 03/11/23 01:04 Source: patient Mode of arrival: ambulatory Limitations: no limitations - History of Present Illness Initial Comments: 47-year-old female well known to our ER presenting with chief complaint of left- sided flank pain. Patient has history of kidney stones. States that she has an appointment with her urologist Rekha Zambrano on Sunday. Admits to nausea and vomiting. Admits to hematuria. No dysuria. No fevers. - Related Data Home Medications Medication Instructions Recorded Confirmed oxyCODONE-APAP 10-325MG [Percocet 1 tab PO QID PRN 08/29/17 01/06/22 10-325 mg] PARoxetine HCL [Paxil] 40 mg PO DAILY 03/12/18 01/06/22 PARoxetine [Paxil] 20 mg PO DAILY 06/04/18 01/06/22 Loratadine 10 mg PO DAILY 04/21/20 01/06/22 Dapagliflozin Propanediol [Farxiga] 10 mg PO DAILY 12/07/21 01/06/22 Dextroamphetamine/Amphetamine 20 mg PO BID 12/07/21 01/06/22 [Dextroamp-Amphetamin 20 mg Tab] Glimepiride [Amaryl] 4 mg PO DAILY 12/07/21 01/06/22 Multivitamins, Thera [Multivitamin 1 tab PO DAILY 12/07/21 01/06/22 (formulary)] SUMAtriptan succinate [Imitrex] 100 mg PO DAILY PRN 12/07/21 01/06/22 Semaglutide [Rybelsus] 14 mg PO DAILY 01/06/22 01/06/22 Previous Rx's Medication Instructions Recorded Ondansetron Odt [Zofran Odt] 4 mg PO Q8H PRN #12 tab 01/06/22 Ondansetron Odt [Zofran Odt] 4 mg PO Q8HR PRN #15 tab 01/12/22 clindamycin HCL [Cleocin] 300 mg PO Q6HR #40 cap 01/21/22 Cephalexin [Keflex] 500 mg PO Q6HR #40 cap 02/21/22 Promethazine Suppository 25 mg RECTAL TID PRN #15 supp 02/21/22 [Phenergan] Cephalexin [Keflex] 500 mg PO Q12HR 5 Days #10 cap 02/27/22 Fluconazole [Diflucan] 150 mg PO ONCE #1 tab 02/27/22 Cefdinir 300 mg PO Q12HR #14 cap 05/14/22 Baclofen 10 mg PO TID PRN #20 tab 05/24/22 Phenazopyridine HCl [Pyridium] 100 mg PO TID PRN #6 tab 06/05/22 Ondansetron Odt [Zofran Odt] 4 mg PO Q8HR PRN #20 tab 06/21/22 Ondansetron Odt [Zofran Odt] 4 mg PO Q8HR PRN #20 tab 09/06/22 Allergies Allergy/AdvReac Type Severity Reaction Status Date / Time bupropion HCl Allergy Rash/Hives Verified 03/11/23 01:03 [From Wellbutrin] divalproex sodium Allergy Unknown Verified 03/11/23 01:03 [From Depakote] fentanyl Allergy Swelling Verified 03/11/23 01:03 Iodinated Contrast Media Allergy Anaphylaxis Verified 03/11/23 01:03 [Iodinated Contrast Media - IV Dye] orange juice [[place]] Allergy Rash/Hives Verified 03/11/23 01:03 Sulfa (Sulfonamide Allergy Rash/Hives Verified 03/11/23 01:03 Antibiotics) Penicillins AdvReac Rash/Hives/Gi Verified 03/11/23 01:03 Upset Review of Systems ROS Statement: Those systems with pertinent positive or pertinent negative responses have been documented in the HPI. ROS Other: All systems not noted in ROS Statement are negative. 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 History of Any Multi-Drug Resistant Organisms: ESBL Date of last positivie culture/infection: 05/14/17 MDRO Source:: ESBL URINE, Past Surgical History: Bladder Surgery, Section, Cholecystectomy, Hysterectomy, Orthopedic Surgery, Tubal Ligation Additional Past Surgical History / Comment(s): R ovarian cystectomy, laparoscopic surgery for L ovary that had attached to the bowel, D&C, numerous lithotripsies, nephroscopies, cystoscopies and stents to ureters-none in place at this time, L robotic pyeloplasty with post op infection around kidney which then required a picc line/later removed (pt states was not MRSA), L rotator cuff repair, L wrist tendon surgery, colonoscopy. Kidney stone removal. Past Anesthesia/Blood Transfusion Reactions: Family History of Problems w/ Anest hesia Additional Past Anesthesia/Blood Transfusion Reaction / Comment(s): dad-hard time waking up due to enzyme problems in liver Past Psychological History: ADD/ADHD, Anxiety, Bipolar, Depression, PTSD Smoking Status: Current every day smoker Past Alcohol Use History: None Reported Past Drug Use History: None Reported - Past Family History Brother(s) Family Medical History: Cancer Additional Family Medical History / Comment(s): testicular Father Family Medical History: Coronary Artery Disease (CAD), CVA/TIA, Diabetes Mellitus, Renal Disease Additional Family Medical History / Comment(s): GLAUCOMA,NEUROPATHY HAD TRIPLE CABG, at 56yrs from renal disease. Mother Family Medical History: Hyperlipidemia Additional Family Medical History / Comment(s): DDD, HAD 3 vessel CABG AGE 54. General Exam Limitations: no limitations General appearance: alert, in no apparent distress Head exam: Present: atraumatic, normocephalic, normal inspection Eye exam: Present: normal appearance, EOMI Neck exam: Present: normal inspection, full ROM Respiratory exam: Absent: respiratory distress Neurological exam: Present: alert, oriented X3, CN II-XII intact Psychiatric exam: Present: normal affect, normal mood Skin exam: Present: warm, dry, intact, normal color. Absent: rash Course Vital Signs 03/11/23 01:00 Temperature 96.8 F L Pulse Rate 96 Respiratory 18 Rate Blood Pressure 131/81 O2 Sat by Pulse 99 Oximetry Medical Decision Making - Medical Decision Making Was pt. sent in by a medical professional or institution (, PA, OCEAN FREIGHT MANAGER, urgent care, hospital, or long term...) When possible be specific @ -No Did you speak to anyone other than the patient for history (EMS, parent, family, police, friend...)? What history was obtained from this source @ -No Did you review nursing and triage notes (agree or disagree)? Why? @ -I reviewed and agree with nursing and triage notes Were old charts reviewed (outside hosp., previous admission, EMS record, old EKG, old radiological studies, urgent care reports/EKG's, long term records)? Report findings @ -No old charts were reviewed Differential Diagnosis (chest pain, altered mental status, abdominal pain women, abdominal pain men, vaginal bleeding, weakness, fever, dyspnea, syncope, headache, dizziness, GI bleed, back pain, seizure, CVA, palpatations, mental health, musculoskeletal)? @ - MDM Differential Back Pain: Strain, zoster, cauda equina syndrome, epidural abscess, vertebral osteomyelitis, discitis, fracture, subluxation, disc herniation, DJD, spinal stenosis, dissection, AAA, pancreatitis, peptic ulcer disease, pyelonephritis, kidney stone this is not meant to be an all-inclusive list. EKG interpreted by me (3pts min.). @ -As above X-rays interpreted by me (1pt min.). @ -None done CT interpreted by me (1pt min.). @ -None done U/S interpreted by me (1pt. min.). @ -None done What testing was considered but not performed or refused? (CT, X-rays, U/S, labs)? Why? @ -None What meds were considered but not given or refused? Why? @ -None Did you discuss the management of the patient with other professionals (deanna gutiérrez i.e. , PA, OCEAN FREIGHT MANAGER, lab, RT, psych nurse, social media assistant, diamond finishing supervisor, teacher, airfield engineer officer, case management social worker)? Give summary @ -No Was smoking cessation discussed for >3mins.? @ -No Was critical care preformed (if so, how long)? @ -No Were there social determinants of health that impacted care today? How? (Homelessness, low income, unemployed, alcoholism, drug addiction, transportation, low edu. Level, literacy, decrease access to med. care, senior care, rehab)? @ -No Was there de-escalation of care discussed even if they declined (Discuss DNR or withdrawal of care, Hospice)? DNR status @ -No What co-morbidities impacted this encounter? (DM, HTN, Smoking, COPD, CAD, Cancer, CVA, ARF, Chemo, Hep., AIDS, mental health diagnosis, sleep apnea, morbid obesity)? @ -None Was patient admitted / discharged? Hospital course, mention meds given and route, prescriptions, significant lab abnormalities, going to OR and other pertinent info. @ -47-year-old female well known to our ER presenting with chief complaint of left-sided flank pain. History of kidney stones. No fevers. Physical exam shows left-sided CVA tenderness. Urine shows large blood. Patient is given Toradol and fluids, on reassessment she reports some improvement in pain. Discharged home in stable condition. Follow-up with PCP. Report back to ER with any new or worsening symptoms. Discussed return parameters and answered all questions. Patient conveyed verbal understanding and agreed to the plan. I discussed this case in detail with my attending Dr. Montgomery Undiagnosed new problem with uncertain prognosis? @ -No Drug Therapy requiring intensive monitoring for toxicity (Heparin, Nitro, Insulin, Cardizem)? @ -No Were any procedures done? @ -No Diagnosis/symptom? @ -Kidney stone Acute, or Chronic, or Acute on Chronic? @ -Acute Uncomplicated (without systemic symptoms) or Complicated (systemic symptoms)? @ -Uncomplicated Side effects of treatment? @ -No Exacerbation, Progression, or Severe Exacerbation? @ -No Poses a threat to life or bodily function? How? (Chest pain, [place], [place], pneumonia, PE, COPD, DKA, ARF, appy, cholecystitis, CVA, Diverticulitis, Homicidal, Suicidal, threat to staff... and all critical care pts) @ -No - Lab Data Lab Results 03/11/23 Range/Units 01:34 Urine Color Yellow Urine Appearance Clear (Clear) Urine pH 5.5 (5.0-8.0) Ur Specific [place] 1.009 (1.001-1.035) Urine Protein Negative (Negative) Urine Glucose (UA) Negative (Negative) Urine Ketones Negative (Negative) Urine Blood Large H (Negative) Urine Nitrite Negative (Negative) Urine Bilirubin Negative (Negative) Urine Urobilinogen <2.0 (<2.0) mg/dL Ur Leukocyte Esterase Negative (Negative) Urine RBC >182 H (0-5) /hpf Urine WBC 7 H (0-5) /hpf Ur Squamous Epith Cells 2 (0-4) /hpf Urine Bacteria Rare H (None) /hpf Disposition Clinical Impression: Kidney stone Disposition: HOME SELF-CARE Condition: Good Instructions (If sedation given, give patient instructions): Kidney Stones (ED) Additional Instructions: Follow up with urology. Report back to ER with any new or worsening symptoms. Is patient prescribed a controlled substance at d/c from ED?: No Referrals: Rajiv Sexton MD [Primary Care Provider] - 1-2 days Time of Disposition: 02:22
[2023-03-11 03:04] VITALS: BP 127/78; PULSE 87
== END 2023-03-11 02:40 | disposition home or self-care (01) ==
LOC: EC 00:59
DX: N20.0 Calculus of kidney (principal); I10 Essential (primary) hypertension; E11.9 Type 2 diabetes mellitus without complications; E78.5 Hyperlipidemia, unspecified; K21.9 Gastro-esophageal reflux disease without esophagitis; F41.9 Anxiety disorder, unspecified; F31.9 Bipolar disorder, unspecified; F90.9 Attention-deficit hyperactivity disorder, unspecified type; F17.200 Nicotine dependence, unspecified, uncomplicated; Z79.84 Long term (current) use of oral hypoglycemic drugs; Z79.899 Other long term (current) drug therapy; Z88.0 Allergy status to penicillin; Z88.2 Allergy status to sulfonamides; Z91.041 Radiographic dye allergy status; Z88.8 Allergy status to other drugs, medicaments and biological substances; Z91.018 Allergy to other foods
CPT/HCPCS: 81001; 99284; 96374; 96361; J1885

== ENCOUNTER 2023-03-30 00:34 | Emergency (ER) | payer BC, OTHER ==
[2023-03-30] MEDS ORDERED: diphenhydrAMINE 50 MG/ML 1 ML VIAL IVP STA (01:02)
[2023-03-30] MEDS ORDERED: SODIUM CHLORIDE 0.9% 1,000 ML IV STA (01:02)
[2023-03-30] MEDS ORDERED: KETOROLAC 15 MG/ML 1 ML VIAL IVP STA (01:02)
[2023-03-30] MEDS ORDERED: HYDROmorphone 1 MG/ML 1 ML SYRINGE IVP STA (01:03)
--- NOTE | 2023-03-30 01:04 | ED ---
Recheck HPI - General Chief Complaint: Abdominal Pain Stated Complaint: Kidney Stone Time Seen by Provider: 03/30/23 01:02 Source: patient, RN notes reviewed, old records reviewed Mode of arrival: ambulatory Limitations: no limitations - History of Present Illness Initial Comments: This is a 47-year-old female to the emergency department for evaluation today. Patient presents today for evaluation of severe abdominal pain with nausea and vomiting. Patient has known history of kidney issues with recurrent kidney stones. Multiple surgeries and issues. Patient has no fevers today but does admit to get blood in the ER. Otherwise no new symptoms. Nausea vomiting is not a lot of patient's taking home pain medications pain is increasing MD Complaint: medication refill request, other (Nausea vomiting unable take pain medication) Returns Today for: persistent/worsening pain related to initial visit Symptoms Since Prior Visit: worsening pain Associated Symptoms: abdominal pain Treatments Prior to Arrival: Given Pain Meds on - Related Data Home Medications Medication Instructions Recorded Confirmed oxyCODONE-APAP 10-325MG [Percocet 1 tab PO QID PRN 08/29/17 01/06/22 10-325 mg] PARoxetine HCL [Paxil] 40 mg PO DAILY 03/12/18 01/06/22 PARoxetine [Paxil] 20 mg PO DAILY 06/04/18 01/06/22 Loratadine 10 mg PO DAILY 04/21/20 01/06/22 Dapagliflozin Propanediol [Farxiga] 10 mg PO DAILY 12/07/21 01/06/22 Dextroamphetamine/Amphetamine 20 mg PO BID 12/07/21 01/06/22 [Dextroamp-Amphetamin 20 mg Tab] Glimepiride [Amaryl] 4 mg PO DAILY 12/07/21 01/06/22 Multivitamins, Thera [Multivitamin 1 tab PO DAILY 12/07/21 01/06/22 (formulary)] SUMAtriptan succinate [Imitrex] 100 mg PO DAILY PRN 12/07/21 01/06/22 Semaglutide [Rybelsus] 14 mg PO DAILY 01/06/22 01/06/22 Previous Rx's Medication Instructions Recorded Ondansetron Odt [Zofran Odt] 4 mg PO Q8H PRN #12 tab 01/06/22 Ondansetron Odt [Zofran Odt] 4 mg PO Q8HR PRN #15 tab 01/12/22 clindamycin HCL [Cleocin] 300 mg PO Q6HR #40 cap 01/21/22 Cephalexin [Keflex] 500 mg PO Q6HR #40 cap 02/21/22 Promethazine Suppository 25 mg RECTAL TID PRN #15 supp 02/21/22 [Phenergan] Cephalexin [Keflex] 500 mg PO Q12HR 5 Days #10 cap 02/27/22 Fluconazole [Diflucan] 150 mg PO ONCE #1 tab 02/27/22 Cefdinir 300 mg PO Q12HR #14 cap 05/14/22 Baclofen 10 mg PO TID PRN #20 tab 05/24/22 Phenazopyridine HCl [Pyridium] 100 mg PO TID PRN #6 tab 06/05/22 Ondansetron Odt [Zofran Odt] 4 mg PO Q8HR PRN #20 tab 06/21/22 Ondansetron Odt [Zofran Odt] 4 mg PO Q8HR PRN #20 tab 09/06/22 Allergies Allergy/AdvReac Type Severity Reaction Status Date / Time bupropion HCl Allergy Rash/Hives Verified 03/30/23 00:59 [From Wellbutrin] divalproex sodium Allergy Unknown Verified 03/30/23 00:59 [From Depakote] fentanyl Allergy Swelling Verified 03/30/23 00:59 Iodinated Contrast Media Allergy Anaphylaxis Verified 03/30/23 00:59 [Iodinated Contrast Media - IV Dye] orange juice [[place]] Allergy Rash/Hives Verified 03/30/23 00:59 Sulfa (Sulfonamide Allergy Rash/Hives Verified 03/30/23 00:59 Antibiotics) Penicillins AdvReac Rash/Hives/Gi Verified 03/30/23 00:59 Upset Review of Systems ROS Statement: Those systems with pertinent positive or pertinent negative responses have been documented in the HPI. ROS Other: All systems not noted in ROS Statement are negative. 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 History of Any Multi-Drug Resistant Organisms: ESBL Date of last positivie culture/infection: 05/14/17 MDRO Source:: ESBL URINE, Past Surgical History: Bladder Surgery, Section, Cholecystectomy, Hysterectomy, Orthopedic Surgery, Tubal Ligation Additional Past Surgical History / Comment(s): R ovarian cystectomy, laparoscopic surgery for L ovary that had attached to the bowel, D&C, numerous lithotripsies, nephroscopies, cystoscopies and stents to ureters-none in place at this time, L robotic pyeloplasty with post op infection around kidney which then required a picc line/later removed (pt states was not MRSA), L rotator cuff repair, L wrist tendon surgery, colonoscopy. Kidney stone removal. Past Anesthesia/Blood Transfusion Reactions: Family History of Problems w/ Anesthesia Additional Past Anesthesia/Blood Transfusion Reaction / Comment(s): dad-hard time waking up due to enzyme problems in liver Past Psychological History: ADD/ADHD, Anxiety, Bipolar, Depression, PTSD Smoking Status: Current every day smoker Past Alcohol Use History: None Reported Past Drug Use History: None Reported - Past Family History Brother(s) Family Medical History: Cancer Additional Family Medical History / Comment(s): testicular Father Family Medical History: Coronary Artery Disease (CAD), CVA/TIA, Diabetes Mellitus, Renal Disease Additional Family Medical History / Comment(s): GLAUCOMA,NEUROPATHY HAD TRIPLE CABG, at 56yrs from renal disease. Mother Family Medical History: Hyperlipidemia Additional Family Medical History / Comment(s): DDD, HAD 3 vessel CABG AGE 54. General Exam Limitations: no limitations General appearance: alert, in no apparent distress Head exam: Present: atraumatic, normocephalic, normal inspection Eye exam: Present: normal appearance, PERRL, EOMI. Absent: scleral icterus, conjunctival injection, periorbital swelling ENT exam: Present: normal exam, mucous membranes moist Neck exam: Present: normal inspection. Absent: tenderness, meningismus, lymphadenopathy Respiratory exam: Present: normal lung sounds bilaterally. Absent: respiratory distress, wheezes, rales, rhonchi, stridor Cardiovascular Exam: Present: regular rate, normal rhythm, normal heart sounds. Absent: systolic murmur, diastolic murmur, rubs, gallop, clicks GI/Abdominal exam: Present: soft, normal bowel sounds. Absent: distended, tenderness, guarding, rebound, rigid Extremities exam: Present: normal inspection, full ROM, normal capillary refill. Absent: tenderness, pedal edema, joint swelling, calf tenderness Back exam: Present: normal inspection Neurological exam: Present: alert, oriented X3, CN II-XII intact Psychiatric exam: Present: normal affect, normal mood Skin exam: Present: warm, dry, intact, normal color. Absent: rash Course Vital Signs 03/30/23 03/30/23 00:57 03:00 Temperature 97.9 F 97.9 F Pulse Rate 95 87 Respiratory 18 18 Rate Blood Pressure 113/79 117/75 O2 Sat by Pulse 98 98 Oximetry - Reevaluation(s) Reevaluation #1: 03/30/23 02:29 Medical records reviewed Reevaluation #2: 03/30/23 02:29 Patient symptoms are improved Reevaluation #3: 03/30/23 02:29 Patient informed results questions answered Reevaluation #4: 03/30/23 02:29 Was pt. sent in by a medical professional or institution (, PA, ROOF ASSEMBLER, urgent care, hospital, or long-term...) When possible be specific @ -no Did you speak to anyone other than the patient for history (EMS, parent, family, police, friend...)? What history was obtained from this source @ -no Did you review nursing and triage notes (agree or disagree)? Why? @ -agree Are old charts reviewed (outside hosp., previous admission, EMS record, old EKG, old radiological studies, urgent care reports/EKG's, long-term records)? Report findings @ -yes Differential Diagnosis (chest pain, altered mental status, abdominal pain women, abdominal pain men, vaginal bleeding, weakness, fever, dyspnea, syncope, headache, dizziness, GI bleed, back pain, seizure, CVA, palpatations, mental health, musculoskeletal)? @ -prior EKG interpreted by me (3pts min.). @ -no X-rays interpreted by me (1pt min.). @ -no CT interpreted by me (1pt min.). @ -no U/S interpreted by me (1pt. min.). @ -no What testing was considered but not performed or refused? (CT, X-rays, U/S, labs)? Why? @ -none What meds were considered but not given or refused? Why? @ -none Did you discuss the management of the patient with other professionals (professionals i.e. , PA, ROOF ASSEMBLER, lab, RT, psych nurse, perinatal social worker, angle furnaceman, teacher, personal banking officer, insurance case manager)? Give summary @ -no Was smoking cessation discussed for >3mins.? @ -no Was critical care preformed (if so, how long)? @ -no Were there social determinants of health that impacted care today? How? (Homelessness, low income, unemployed, alcoholism, drug addiction, transportat ion, low edu. Level, literacy, decrease access to med. care, halfway, rehab)? @ -none Was there de-escalation of care discussed even if they declined (Discuss DNR or withdrawal of care, Hospice)? DNR status @ -no What co-morbidities impacted this encounter? (DM, HTN, Smoking, COPD, CAD, Cancer, CVA, ARF, Chemo, Hep., AIDS, mental health diagnosis, sleep apnea, morbid obesity)? @ -none Was patient admitted / discharged? Hospital course, mention meds given and route, prescriptions, significant lab abnormalities, going to OR and other pertinent info. @ - 47 female to the emergency department for evaluation of abdominal pain. Chronic abdominal pain improved here in the ER with no active nausea and vomiting. Patient feels improved and can be discharged home Discharge Undiagnosed new problem with uncertain prognosis? @ -no Drug Therapy requiring intensive monitoring for toxicity (Heparin, Nitro, Insulin, Cardizem)? @ -no Were any procedures done? @ -no Diagnosis/symptom? @ -Chronic pain, kidney pain Acute, or Chronic, or Acute on Chronic? @ -Acute Uncomplicated (without systemic symptoms) or Complicated (systemic symptoms)? @ -Complicated Side effects of treatment? @ -no Exacerbation, Progression, or Severe Exacerbation? @ -exacerbation Poses a threat to life or bodily function? How? (Chest pain, [place], [place], pneumonia, PE, COPD, DKA, ARF, appy, cholecystitis, CVA, Diverticulitis, Homicidal, Suicidal, threat to staff... and all critical care pts) @ -no Reevaluation #5: 10/06/23 02:29 Differential Abdominal Pain Women: Appendicitis, Cholecystitis, diverticulosis, ischemic bowel, pancreatitis, hepatitis, UTI, gastroenteritis, AAA, incarcerated hernia, bowel obstruction, constipation, inflammatory bowel, hepatitis, peptic ulcer disease, splenic infarction, perforated viscus, vulvitis, ovarian torsion, PID, kidney stone, william centa abruption, this is not meant to be an all-inclusive list Medical Decision Making - Medical Decision Making 47 female to the emergency department for evaluation of abdominal pain. Chronic abdominal pain improved here in the ER with no active nausea and vomiting. Patient feels improved and can be discharged home - Lab Data Result diagrams: 03/30/23 01:24 03/30/23 01:24 Lab Results 03/30/23 03/30/23 03/30/23 Range/Units 01:24 01:24 01:24 WBC 11.6 H (3.8-10.6) k/uL RBC 5.11 (3.80-5.40) m/uL Hgb 15.8 (11.4-16.0) gm/dL Hct 44.6 (34.0-46.0) % MCV 87.3 (80.0-100.0) fL MCH 30.9 (25.0-35.0) pg MCHC 35.4 (31.0-37.0) g/dL RDW 12.4 (11.5-15.5) % Plt Count 280 (150-450) k/uL MPV 7.9 Neutrophils % 41 % Lymphocytes % 49 % Monocytes % 5 % Eosinophils % 3 % Basophils % 0 % Neutrophils # 4.7 (1.3-7.7) k/uL Lymphocytes # 5.6 H (1.0-4.8) k/uL Monocytes # 0.6 (0-1.0) k/uL Eosinophils # 0.4 (0-0.7) k/uL Basophils # 0.1 (0-0.2) k/uL Sodium 137 (137-145) mmol/L Potassium 4.0 (3.5-5.1) mmol/L Chloride 103 (98-107) mmol/L Carbon Dioxide 24 (22-30) mmol/L Anion Gap 10 mmol/L BUN 12 (7-17) mg/dL Creatinine 0.60 (0.52-1.04) mg/dL Est GFR (CKD-EPI)AfAm >90 (>60 ml/min/1.73 sqM) Est GFR (CKD-EPI)NonAf >90 (>60 ml/min/1.73 sqM) Glucose 102 H (74-99) mg/dL Calcium 10.0 (8.4-10.2) mg/dL Total Bilirubin 0.6 (0.2-1.3) mg/dL AST 26 (14-36) U/L ALT 25 (4-34) U/L Alkaline Phosphatase 79 (38-126) U/L Total Protein 7.2 (6.3-8.2) g/dL Albumin 4.5 (3.5-5.0) g/dL Amylase 66 (30-110) U/L Lipase 185 (23-300) U/L Urine Color Yellow Urine Appearance Cloudy H (Clear) Urine pH 5.5 (5.0-8.0) Ur Specific [place] 1.029 (1.001-1.035) Urine Protein Trace H (Negative) Urine Glucose (UA) Negative (Negative) Urine Ketones Negative (Negative) Urine Blood Large H (Negative) Urine Nitrite Negative (Negative) Urine Bilirubin Negative (Negative) Urine Urobilinogen 2.0 (<2.0) mg/dL Ur Leukocyte Esterase Negative (Negative) Urine RBC >182 H (0-5) /hpf Urine WBC 9 H (0-5) /hpf Ur Squamous Epith Cells 12 H (0-4) /hpf Calcium Oxalate Crystal Many H (None) /hpf Urine Bacteria Rare H (None) /hpf Hyaline Casts 6 H (0-2) /lpf Urine Mucus Few H (None) /hpf Disposition Clinical Impression: Abdominal pain, Left flank pain, chronic, Flank pain, Intractable pain Disposition: HOME SELF-CARE Condition: Good Instructions (If sedation given, give patient instructions): Abdominal Pain (ED) Is patient prescribed a controlled substance at d/c from ED?: No Referrals: Rajiv Sexton MD [Primary Care Provider] - 1-2 days Time of Disposition: 02:30
[2023-03-30 01:06] VITALS: RESP 18; TEMP 97.9
[2023-03-30 01:57] LABS: ALT 25 U/L (4-34); AST 26 U/L (14-36); African American GFR (CKD) >90 (>60 ml/min/1.73 sqM); Albumin 4.5 g/dL (3.5-5.0); Alkaline Phosphatase 79 U/L (38-126); Amylase 66 U/L (30-110); Blood Urea Nitrogen 12 mg/dL (7-17); Carbon Dioxide 24 mmol/L (22-30); Chloride 103 mmol/L (98-107); Glucose 102 mg/dL (74-99); Lipase 185 U/L (23-300); Non-African American GFR(CKD) >90 (>60 ml/min/1.73 sqM); Total Bilirubin 0.6 mg/dL (0.2-1.3); Total Protein 7.2 g/dL (6.3-8.2)
[2023-03-30 01:58] LABS: Anion Gap 10 mmol/L; Sodium 137 mmol/L (137-145)
[2023-03-30 02:07] LABS: Basophils # (A) 0.1 k/uL (0-0.2); Basophils % (A) 0 %; Eosinophils # (A) 0.4 k/uL (0-0.7); Eosinophils % (A) 3 %; HCT 44.6 % (34.0-46.0); HGB 15.8 gm/dL (11.4-16.0); Lymphocytes # (A) 5.6 k/uL (1.0-4.8); Lymphocytes % (A) 49 %; MCH 30.9 pg (25.0-35.0); MCHC 35.4 g/dL (31.0-37.0); MCV 87.3 fL (80.0-100.0); Mean Platelet Volume 7.9; Monocytes # (A) 0.6 k/uL (0-1.0); Monocytes % (A) 5 %; Neutrophils # (A) 4.7 k/uL (1.3-7.7); Neutrophils % (A) 41 %; Platelet Count 280 k/uL (150-450); RBC 5.11 m/uL (3.80-5.40); RDW 12.4 % (11.5-15.5); WBC 11.6 k/uL (3.8-10.6)
[2023-03-30 02:13] LABS: Appearance,Urine Cloudy (Clear); Bacteria,Urine Rare /hpf; Bilirubin,Urine Negative (Negative); Blood,Urine Large (Negative); Calcium Oxalate Crystals,Urine Many /hpf; Color,Urine Yellow; Glucose,Urine (UA) Negative (Negative); Hyaline Casts,Urine 6 /lpf (0-2); Ketones,Urine Negative (Negative); Leukocyte Esterase,Urine Negative (Negative); Mucus,Urine Few /hpf; Nitrite,Urine Negative (Negative); PH, Urine 5.5 (5.0-8.0); Protein,Urine Trace (Negative); RBC,Urine >182 /hpf (0-5); Specific Gravity,Urine 1.029 (1.001-1.035); Squamous Epithelial Cell,Urine 12 /hpf (0-4); WBC,Urine 9 /hpf (0-5)
[2023-03-30 03:25] VITALS: BP 117/75; PULSE 87
== END 2023-03-30 03:20 | disposition home or self-care (01) ==
LOC: EC 00:34
DX: G89.29 Other chronic pain (principal); N23 Unspecified renal colic; E11.9 Type 2 diabetes mellitus without complications; I10 Essential (primary) hypertension; F31.9 Bipolar disorder, unspecified; F41.9 Anxiety disorder, unspecified; F17.200 Nicotine dependence, unspecified, uncomplicated; Z79.84 Long term (current) use of oral hypoglycemic drugs; Z79.899 Other long term (current) drug therapy; Z88.0 Allergy status to penicillin; Z88.2 Allergy status to sulfonamides; Z88.8 Allergy status to other drugs, medicaments and biological substances; Z91.041 Radiographic dye allergy status; Z91.018 Allergy to other foods
CPT/HCPCS: 36415; 80053; 82150; 83690; 85025; 81001; 99284; 96374; 96375 ×2; 96361; J1200; J1170; J1885

== ENCOUNTER 2023-05-03 14:03 | Emergency (ER) | payer OTHER ==
[2023-05-03] MEDS ORDERED: MECLIZINE 12.5 MG TAB PO STA (19:25)
[2023-05-03] MEDS ORDERED: SODIUM CHLORIDE 0.9% 1,000 ML IV STA (19:25)
[2023-05-03 20:02] VITALS: RESP 20
[2023-05-03 20:03] LABS: Basophils % (A) 0 %; Eosinophils # (A) 0.2 k/uL (0-0.7); Eosinophils % (A) 2 %; HCT 45.6 % (34.0-46.0); HGB 15.7 gm/dL (11.4-16.0); Lymphocytes # (A) 4.1 k/uL (1.0-4.8); Lymphocytes % (A) 39 %; MCH 30.1 pg (25.0-35.0); MCHC 34.4 g/dL (31.0-37.0); MCV 87.6 fL (80.0-100.0); Mean Platelet Volume 7.4; Monocytes # (A) 0.4 k/uL (0-1.0); Monocytes % (A) 4 %; Neutrophils # (A) 5.7 k/uL (1.3-7.7); Neutrophils % (A) 54 %; Platelet Count 289 k/uL (150-450); RBC 5.21 m/uL (3.80-5.40); RDW 12.3 % (11.5-15.5); WBC 10.6 k/uL (3.8-10.6)
--- NOTE | 2023-05-03 20:14 | XR ---
EXAMINATION: XR chest 2V: 05/03/2023 7:48 PM CLINICAL INDICATION: dysrhythmia TECHNIQUE: Departmental protocol COMPARISON: 05/24/2022 FINDINGS: The lungs are clear. The pleural spaces are negative. EKG leads noted. The cardiac silhouette is not enlarged. The skeletal structures and soft tissues are negative for acute findings. IMPRESSION: No acute radiographic process.
[2023-05-03 20:27] LABS: INR 0.9 (<1.2); Partial Thromboplastin Time 26.6 sec (22.0-30.0)
[2023-05-03 20:33] LABS: ALT 30 U/L (4-34); AST 29 U/L (14-36); African American GFR (CKD) >90 (>60 ml/min/1.73 sqM); Albumin 4.9 g/dL (3.5-5.0); Alkaline Phosphatase 82 U/L (38-126); Anion Gap 12 mmol/L; Blood Urea Nitrogen 11 mg/dL (7-17); Calcium 10.4 mg/dL (8.4-10.2); Carbon Dioxide 24 mmol/L (22-30); Chloride 101 mmol/L (98-107); Glucose 94 mg/dL (74-99); Magnesium 1.7 mg/dL (1.6-2.3); Non-African American GFR(CKD) >90 (>60 ml/min/1.73 sqM); Potassium 3.9 mmol/L (3.5-5.1); Sodium 137 mmol/L (137-145); Total Bilirubin 1.4 mg/dL (0.2-1.3); Total Protein 7.9 g/dL (6.3-8.2)
--- NOTE | 2023-05-03 21:15 | ED ---
Arrhythmia/Palpitations HPI - General Chief Complaint: Arrhythmia/Palpitations Stated Complaint: palpitations Time Seen by Provider: 05/03/23 19:13 Source: patient Mode of arrival: ambulatory Limitations: no limitations - History of Present Illness Initial Comments: 47-year-old female presenting with chief complaint of palpitations. Patient states this has been ongoing for a few days. She gets intermittent episodes of palpitations, states that she does have some dizziness when experiencing the palpitations. No chest pain or shortness of breath. No abdominal pain or vomiting. She does get some nausea with the dizziness. No cough, congestion, sore throat, fever, chills. No lower extremity edema. - Related Data Home Medications Medication Instructions Recorded Confirmed oxyCODONE-APAP 10-325MG [Percocet 1 tab PO QID PRN 08/29/17 05/03/23 10-325 mg] PARoxetine HCL [Paxil] 40 mg PO DAILY 03/12/18 05/03/23 PARoxetine [Paxil] 20 mg PO DAILY 06/04/18 05/03/23 Loratadine 10 mg PO DAILY 04/21/20 05/03/23 Dextroamphetamine/Amphetamine 20 mg PO BID 12/07/21 05/03/23 [Dextroamp-Amphetamin 20 mg Tab] Multivitamins, Thera [Multivitamin 1 tab PO DAILY 12/07/21 05/03/23 (formulary)] SUMAtriptan succinate [Imitrex] 100 mg PO DAILY PRN 12/07/21 05/03/23 Atorvastatin [Lipitor] 40 mg PO DAILY 05/03/23 05/03/23 Cholecalciferol [Vitamin D3 (25 25 mcg PO DAILY 05/03/23 05/03/23 Mcg = 1000 Iu)] Cyanocobalamin (Vitamin B-12) 1,000 mcg PO DAILY 05/03/23 05/03/23 [Vitamin B-12] Tirzepatide [Mounjaro] 12.5 mg SQ WE 05/03/23 05/03/23 lisinopriL [Zestril] 10 mg PO DAILY 05/03/23 05/03/23 metFORMIN HCL 1,000 mg PO BID 05/03/23 05/03/23 Previous Rx's Medication Instructions Recorded Ondansetron Odt [Zofran Odt] 4 mg PO Q8HR PRN #20 tab 03/15/23 Allergies Allergy/AdvReac Type Severity Reaction Status Date / Time bupropion HCl Allergy Rash/Hives Verified 05/03/23 20:19 [From Wellbutrin] divalproex sodium Allergy Unknown Verified 05/03/23 20:19 [From Depakote] fentanyl Allergy Swelling Verified 05/03/23 20:19 Iodinated Contrast Media Allergy Anaphylaxis Verified 05/03/23 20:19 [Iodinated Contrast Media - IV Dye] orange juice [[place]] Allergy Rash/Hives Verified 05/03/23 20:19 Penicillins Allergy Rash/Hives/Gi Verified 05/03/23 20:19 Upset Sulfa (Sulfonamide Allergy Rash/Hives Verified 05/03/23 20:19 Antibiotics) sulfamethoxazole Allergy Rash/Hives Verified 05/03/23 20:19 [From Bactrim] trimethoprim [From Bactrim] Allergy Rash/Hives Verified 05/03/23 20:19 Review of Systems ROS Statement: Those systems with pertinent positive or pertinent negative responses have been documented in the HPI. ROS Other: All systems not noted in ROS Statement are negative. 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 History of Any Multi-Drug Resistant Organisms: ESBL Date of last positivie culture/infection: 05/14/17 MDRO Source:: ESBL URINE, Past Surgical History: Bladder Surgery, Section, Cholecystectomy, Hysterectomy, Orthopedic Surgery, Tubal Ligation Additional Past Surgical History / Comment(s): R ovarian cystectomy, lap aroscopic surgery for L ovary that had attached to the bowel, D&C, numerous lithotripsies, nephroscopies, cystoscopies and stents to ureters-none in place at this time, L robotic pyeloplasty with post op infection around kidney which then required a picc line/later removed (pt states was not MRSA), L rotator cuff repair, L wrist tendon surgery, colonoscopy. Kidney stone removal. Past Anesthesia/Blood Transfusion Reactions: Family History of Problems w/ Anesthesia Additional Past Anesthesia/Blood Transfusion Reaction / Comment(s): dad-hard time waking up due to enzyme problems in liver Past Psychological History: ADD/ADHD, Anxiety, Bipolar, Depression, PTSD Smoking Status: Current every day smoker Past Alcohol Use History: None Reported Past Drug Use History: None Reported - Past Family History Brother(s) Family Medical History: Cancer Additional Family Medical History / Comment(s): testicular Father Family Medical History: Coronary Artery Disease (CAD), CVA/TIA, Diabetes Mellitus, Renal Disease Additional Family Medical History / Comment(s): GLAUCOMA,NEUROPATHY HAD TRIPLE CABG, at 56yrs from renal disease. Mother Family Medical History: Hyperlipidemia Additional Family Medical History / Comment(s): DDD, HAD 3 vessel CABG AGE 54. General Exam Limitations: no limitations General appearance: alert, in no apparent distress Head exam: Present: atraumatic, normocephalic, normal inspection Eye exam: Present: normal appearance, EOMI Neck exam: Present: normal inspection, full ROM Respiratory exam: Present: normal lung sounds bilaterally. Absent: respiratory distress, wheezes, rales, rhonchi, stridor Cardiovascular Exam: Present: regular rate, normal rhythm, normal heart sounds. Absent: systolic murmur, diastolic murmur, rubs, gallop, clicks Extremities exam: Absent: pedal edema Neurological exam: Present: alert, oriented X3 Psychiatric exam: Present: normal affect, normal mood Skin exam: Present: warm, dry, intact, normal color. Absent: rash Course Vital Signs 05/03/23 05/03/23 05/03/23 14:17 19:21 20:00 Temperature 98.1 F Pulse Rate 102 H 80 84 Respiratory 16 20 20 Rate Blood Pressure 140/92 153/99 132/90 O2 Sat by Pulse 97 100 98 Oximetry 05/03/23 21:36 Temperature 98.2 F Pulse Rate 87 Respiratory 20 Rate Blood Pressure 129/79 O2 Sat by Pulse 100 Oximetry EKG Findings - EKG Comments: EKG Findings:: Sinus rhythm with ventricular rate 89. ME interval 150. QRS 89. QT 347. QTC 394. No ischemic changes. Medical Decision Making - Medical Decision Making Was pt. sent in by a medical professional or institution (, PA, PROOF TESTER, urgent care, hospital, or care home...) When possible be specific @ -No Did you speak to anyone other than the patient for history (EMS, parent, family, police, friend...)? What history was obtained from this source @ -No Did you review nursing and triage notes (agree or disagree)? Why? @ -I reviewed and agree with nursing and triage notes Were old charts reviewed (outside hosp., previous admission, EMS record, old EKG, old radiological studies, urgent care reports/EKG's, care home records)? Report findings @ -No old charts were reviewed Differential Diagnosis (chest pain, altered mental status, abdominal pain women, abdominal pain men, vaginal bleeding, weakness, fever, dyspnea, syncope, headache, dizziness, GI bleed, back pain, seizure, CVA, palpatations, mental health, musculoskeletal)? @ -Differential Palpitations Ventricular arrhythmias, atrial arrhythmias, myocardial infarction, anemia, thyrotoxicosis, electrolyte imbalance, hypokalemia, pulmonary embolism, pulmonar y disease, drugs, alcohol, anxiety, stress.... This is not meant to be an all-inclusive list. EKG interpreted by me (3pts min.). @ -As above X-rays interpreted by me (1pt min.). @ -Chest X-ray shows no acute process CT interpreted by me (1pt min.). @ -None done U/S interpreted by me (1pt. min.). @ -None done What testing was considered but not performed or refused? (CT, X-rays, U/S, labs)? Why? @ -None What meds were considered but not given or refused? Why? @ -None Did you discuss the management of the patient with other professionals (professionals i.e. , PA, PROOF TESTER, lab, RT, psych nurse, social economist, supervisor park workers, teacher, infantry officer, director of casework services)? Give summary @ -No Was smoking cessation discussed for >3mins.? @ -No Was critical care preformed (if so, how long)? @ -No Were there social determinants of health that impacted care today? How? (Homelessness, low income, unemployed, alcoholism, drug addiction, transportation, low edu. Level, literacy, decrease access to med. care, assisted, rehab)? @ -No Was there de-escalation of care discussed even if they declined (Discuss DNR or withdrawal of care, Hospice)? DNR status @ -No What co-morbidities impacted this encounter? (DM, HTN, Smoking, COPD, CAD, Cancer, CVA, ARF, Chemo, Hep., AIDS, mental health diagnosis, sleep apnea, morbid obesity)? @ -None Was patient admitted / discharged? Hospital course, mention meds given and route, prescriptions, significant lab abnormalities, going to OR and other pertinent info. @ -47-year-old female presenting with chief complaint of palpitations. Physical exam is conducted. Lab work is essentially unremarkable. Chest x-rays negative and EKG shows sinus rhythm. Patient is educated on today's findings. She is instructed to follow-up with PCP and inquire about Holter monitor.Follow- up with PCP. Report back to ER with any new or worsening symptoms. Discussed return parameters and answered all questions. Patient conveyed verbal understanding and agreed to the plan. I discussed this case in detail with my attending Dr. Bishop Undiagnosed new problem with uncertain prognosis? @ -No Drug Therapy requiring intensive monitoring for toxicity (Heparin, Nitro, Insulin, Cardizem)? @ -No Were any procedures done? @ -No Diagnosis/symptom? @ -Palpitations Acute, or Chronic, or Acute on Chronic? @ -Acute Uncomplicated (without systemic symptoms) or Complicated (systemic symptoms)? @ -Uncomplicated Side effects of treatment? @ -No Exacerbation, Progression, or Severe Exacerbation? @ -No Poses a threat to life or bodily function? How? (Chest pain, [place], [place], pneumonia, PE, COPD, DKA, ARF, appy, cholecystitis, CVA, Diverticulitis, Homicidal, Suicid al, threat to staff... and all critical care pts) @ -Low likelihood - Lab Data Result diagrams: 05/03/23 14:20 05/03/23 14:20 Lab Results 05/03/23 05/03/23 05/03/23 Range/Units 14:20 14:20 14:20 WBC 10.6 (3.8-10.6) k/uL RBC 5.21 (3.80-5.40) m/uL Hgb 15.7 (11.4-16.0) gm/dL Hct 45.6 (34.0-46.0) % MCV 87.6 (80.0-100.0) fL MCH 30.1 (25.0-35.0) pg MCHC 34.4 (31.0-37.0) g/dL RDW 12.3 (11.5-15.5) % Plt Count 289 (150-450) k/uL MPV 7.4 Neutrophils % 54 % Lymphocytes % 39 % Monocytes % 4 % Eosinophils % 2 % Basophils % 0 % Neutrophils # 5.7 (1.3-7.7) k/uL Lymphocytes # 4.1 (1.0-4.8) k/uL Monocytes # 0.4 (0-1.0) k/uL Eosinophils # 0.2 (0-0.7) k/uL Basophils # 0.0 (0-0.2) k/uL Manual Slide Review Performed PT 10.0 (10.0-12.5) sec INR 0.9 (<1.2) APTT 26.6 (22.0-30.0) sec Sodium 137 (137-145) mmol/L Potassium 3.9 (3.5-5.1) mmol/L Chloride 101 (98-107) mmol/L Carbon Dioxide 24 (22-30) mmol/L Anion Gap 12 mmol/L BUN 11 (7-17) mg/dL Creatinine 0.69 (0.52-1.04) mg/dL Est GFR (CKD-EPI)AfAm >90 (>60 ml/min/1.73 sqM) Est GFR (CKD-EPI)NonAf >90 (>60 ml/min/1.73 sqM) Glucose 94 (74-99) mg/dL Calcium 10.4 H (8.4-10.2) mg/dL Magnesium 1.7 (1.6-2.3) mg/dL Total Bilirubin 1.4 H (0.2-1.3) mg/dL AST 29 (14-36) U/L ALT 30 (4-34) U/L Alkaline Phosphatase 82 (38-126) U/L Troponin I (0.000-0.034) ng/mL Total Protein 7.9 (6.3-8.2) g/dL Albumin 4.9 (3.5-5.0) g/dL TSH 0.893 (0.465-4.680) mIU/L 05/03/23 Range/Units 14:20 WBC (3.8-10.6) k/uL RBC (3.80-5.40) m/uL Hgb (11.4-16.0) gm/dL Hct (34.0-46.0) % MCV (80.0-100.0) fL MCH (25.0-35.0) pg MCHC (31.0-37.0) g/dL RDW (11.5-15.5) % Plt Count (150-450) k/uL MPV Neutrophils % % Lymphocytes % % Monocytes % % Eosinophils % % Basophils % % Neutrophils # (1.3-7.7) k/uL Lymphocytes # (1.0-4.8) k/uL Monocytes # (0-1.0) k/uL Eosinophils # (0-0.7) k/uL Basophils # (0-0.2) k/uL Manual Slide Review PT (10.0-12.5) sec INR (<1.2) APTT (22.0-30.0) sec Sodium (137-145) mmol/L Potassium (3.5-5.1) mmol/L Chloride (98-107) mmol/L Carbon Dioxide (22-30) mmol/L Anion Gap mmol/L BUN (7-17) mg/dL Creatinine (0.52-1.04) mg/dL Est GFR (CKD-EPI)AfAm (>60 ml/min/1.73 sqM) Est GFR (CKD-EPI)NonAf (>60 ml/min/1.73 sqM) Glucose (74-99) mg/dL Calcium (8.4-10.2) mg/dL Magnesium (1.6-2.3) mg/dL Total Bilirubin (0.2-1.3) mg/dL AST (14-36) U/L ALT (4-34) U/L Alkaline Phosphatase (38-126) U/L Troponin I <0.012 (0.000-0.034) ng/mL Total Protein (6.3-8.2) g/dL Albumin (3.5-5.0) g/dL TSH (0.465-4.680) mIU/L Disposition Clinical Impression: Palpitations Disposition: HOME SELF-CARE Condition: Good Instructions (If sedation given, give patient instructions): Heart Palpitations (ED) Additional Instructions: Follow-up with PCP. Report back to ER with any new or worsening symptoms. Inquire with PCP regarding Holter monitor. Is patient prescribed a controlled substance at d/c from ED?: No Referrals: Rajiv Sexton MD [Primary Care Provider] - 1-2 days Time of Disposition: 21:15
[2023-05-03 21:50] VITALS: BP 129/79; PULSE 87; TEMP 98.2
== END 2023-05-03 21:45 | disposition home or self-care (01) ==
LOC: EC 14:03
DX: R00.2 Palpitations (principal); E11.9 Type 2 diabetes mellitus without complications; E78.5 Hyperlipidemia, unspecified; I10 Essential (primary) hypertension; F31.9 Bipolar disorder, unspecified; F41.9 Anxiety disorder, unspecified; F17.200 Nicotine dependence, unspecified, uncomplicated; Z79.84 Long term (current) use of oral hypoglycemic drugs; Z79.899 Other long term (current) drug therapy; Z88.0 Allergy status to penicillin; Z88.2 Allergy status to sulfonamides; Z88.8 Allergy status to other drugs, medicaments and biological substances; Z91.041 Radiographic dye allergy status; Z90.49 Acquired absence of other specified parts of digestive tract; Z91.018 Allergy to other foods
CPT/HCPCS: 36415; 71046; 80053; 83735; 84443; 84484; 85025; 85610; 85730; 93005; 96360; 99285

== ENCOUNTER 2023-06-12 20:04 | Emergency (ER) | payer OTHER ==
[2023-06-12 20:16] VITALS: RESP 16
[2023-06-12] MEDS ORDERED: SODIUM CHLORIDE 0.9% 1,000 ML IV ONE (21:02)
[2023-06-12] MEDS ORDERED: HYDROmorphone 1 MG/ML 1 ML SYRINGE IVP STA (21:02)
[2023-06-12 21:09] LABS: Appearance,Urine Cloudy (Clear); Bilirubin,Urine Negative (Negative); Blood,Urine Large (Negative); Color,Urine Light Red; Glucose,Urine (UA) Negative (Negative); Ketones,Urine Trace (Negative); Leukocyte Esterase,Urine Small (Negative); Mucus,Urine Many /hpf; Nitrite,Urine Negative (Negative); Protein,Urine 1+ (Negative); RBC,Urine >182 /hpf (0-5); Specific Gravity,Urine 1.037 (1.001-1.035); Squamous Epithelial Cell,Urine 29 /hpf (0-4); WBC,Urine 9 /hpf (0-5)
[2023-06-12 21:31] LABS: ALT 23 U/L (4-34); AST 26 U/L (14-36); African American GFR (CKD) >90 (>60 ml/min/1.73 sqM); Albumin 4.3 g/dL (3.5-5.0); Alkaline Phosphatase 71 U/L (38-126); Anion Gap 10 mmol/L; Blood Urea Nitrogen 13 mg/dL (7-17); Calcium 9.5 mg/dL (8.4-10.2); Carbon Dioxide 23 mmol/L (22-30); Chloride 105 mmol/L (98-107); Glucose 101 mg/dL (74-99); Non-African American GFR(CKD) >90 (>60 ml/min/1.73 sqM); Potassium 3.4 mmol/L (3.5-5.1); Sodium 138 mmol/L (137-145); Total Bilirubin 0.9 mg/dL (0.2-1.3); Total Protein 6.9 g/dL (6.3-8.2)
[2023-06-12 21:33] LABS: HCT 39.2 % (34.0-46.0); HGB 14.2 gm/dL (11.4-16.0); MCH 30.6 pg (25.0-35.0); MCHC 36.3 g/dL (31.0-37.0); MCV 84.4 fL (80.0-100.0); Mean Platelet Volume 7.8; Platelet Count 252 k/uL (150-450); RBC 4.64 m/uL (3.80-5.40); RDW 12.5 % (11.5-15.5); WBC 10.9 k/uL (3.8-10.6)
[2023-06-12 22:25] LABS: Eosinophils # (M) 0.22 k/uL (0-0.7); Lymphocytes # (M) 5.56 k/uL (1.0-4.8); Monocytes # (M) 0.22 k/uL (0-1.0); Neutrophils # (M) 4.91 k/uL (1.3-7.7); Neutrophils % (M) 45 %; Nucleated Red Blood Cells 0 /100 WBC (0-0); Total Cells Counted 100
--- NOTE | 2023-06-12 22:42 | ED ---
Female Urogenital HPI - General Chief complaint: Urogenital Stated complaint: UTI Time Seen by Provider: 06/12/23 20:52 Source: patient Mode of arrival: ambulatory Limitations: no limitations - History of Present Illness Initial comments: 48-year-old female well known to our ER presenting with chief complaint of left- sided flank pain. Patient has history of kidney stones and states that this does feel similar to a kidney stone. She has had blood in her urine and frequent urination. She also admits to some lower abdominal discomfort. She was seen in urgent care prior to this and diagnosed with the UTI, she was started on Keflex. She states that her pain has returned. No fevers or chills. Admits to nausea and vomiting secondary to pain. - Related Data Home Medications Medication Instructions Recorded Confirmed oxyCODONE-APAP 10-325MG [Percocet 1 tab PO QID PRN 08/29/17 05/03/23 10-325 mg] PARoxetine HCL [Paxil] 40 mg PO DAILY 03/12/18 05/03/23 PARoxetine [Paxil] 20 mg PO DAILY 06/04/18 05/03/23 Loratadine 10 mg PO DAILY 04/21/20 05/03/23 Dextroamphetamine/Amphetamine 20 mg PO BID 12/07/21 05/03/23 [Dextroamp-Amphetamin 20 mg Tab] Multivitamins, Thera [Multivitamin 1 tab PO DAILY 12/07/21 05/03/23 (formulary)] SUMAtriptan succinate [Imitrex] 100 mg PO DAILY PRN 12/07/21 05/03/23 Atorvastatin [Lipitor] 40 mg PO DAILY 05/03/23 05/03/23 Cholecalciferol [Vitamin D3 (25 25 mcg PO DAILY 05/03/23 05/03/23 Mcg = 1000 Iu)] Cyanocobalamin (Vitamin B-12) 1,000 mcg PO DAILY 05/03/23 05/03/23 [Vitamin B-12] Tirzepatide [Mounjaro] 12.5 mg SQ WE 05/03/23 05/03/23 lisinopriL [Zestril] 10 mg PO DAILY 05/03/23 05/03/23 metFORMIN HCL 1,000 mg PO BID 05/03/23 05/03/23 Previous Rx's Medication Instructions Recorded Ondansetron Odt [Zofran Odt] 4 mg PO Q8HR PRN #20 tab 09/06/22 Allergies Allergy/AdvReac Type Severity Reaction Status Date / Time bupropion HCl Allergy Rash/Hives Verified 05/03/23 20:19 [From Wellbutrin] divalproex sodium Allergy Unknown Verified 05/03/23 20:19 [From Depakote] fentanyl Allergy Swelling Verified 05/03/23 20:19 Iodinated Contrast Media Allergy Anaphylaxis Verified 05/03/23 20:19 [Iodinated Contrast Media - IV Dye] orange juice [[place]] Allergy Rash/Hives Verified 05/03/23 20:19 Penicillins Allergy Rash/Hives/Gi Verified 05/03/23 20:19 Upset Sulfa (Sulfonamide Allergy Rash/Hives Verified 05/03/23 20:19 Antibiotics) sulfamethoxazole Allergy Rash/Hives Verified 05/03/23 20:19 [From Bactrim] trimethoprim [From Bactrim] Allergy Rash/Hives Verified 05/03/23 20:19 Review of Systems ROS Statement: Those systems with pertinent positive or pertinent negative responses have been documented in the HPI. ROS Other: All systems not noted in ROS Statement are negative. 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 History of Any Multi-Drug Resistant Organisms: ESBL Date of last positivie culture/infection: 05/14/17 MDRO Source:: ESBL URINE, Past Surgical History: Bladder Surgery, Section, Cholecystectomy, Hyste rectomy, Orthopedic Surgery, Tubal Ligation Additional Past Surgical History / Comment(s): R ovarian cystectomy, laparoscopic surgery for L ovary that had attached to the bowel, D&C, numerous lithotripsies, nephroscopies, cystoscopies and stents to ureters-none in place at this time, L robotic pyeloplasty with post op infection around kidney which then required a picc line/later removed (pt states was not MRSA), L rotator cuff repair, L wrist tendon surgery, colonoscopy. Kidney stone removal. Past Anesthesia/Blood Transfusion Reactions: Family History of Problems w/ Anesthesia Additional Past Anesthesia/Blood Transfusion Reaction / Comment(s): dad-hard time waking up due to enzyme problems in liver Past Psychological History: ADD/ADHD, Anxiety, Bipolar, Depression, PTSD Smoking Status: Current every day smoker Past Alcohol Use History: None Reported Past Drug Use History: None Reported - Past Family History Brother(s) Family Medical History: Cancer Additional Family Medical History / Comment(s): testicular Father Family Medical History: Coronary Artery Disease (CAD), CVA/TIA, Diabetes Mellitus, Renal Disease Additional Family Medical History / Comment(s): GLAUCOMA,NEUROPATHY HAD TRIPLE CABG, at 56yrs from renal disease. Mother Family Medical History: Hyperlipidemia Additional Family Medical History / Comment(s): DDD, HAD 3 vessel CABG AGE 54. General Exam Limitations: no limitations General appearance: alert, in no apparent distress Head exam: Present: atraumatic, normocephalic Eye exam: Present: normal appearance Neck exam: Present: normal inspection Respiratory exam: Present: normal lung sounds bilaterally. Absent: respiratory distress, wheezes, rales, rhonchi, stridor Cardiovascular Exam: Present: regular rate, normal rhythm, normal heart sounds. Absent: systolic murmur, diastolic murmur, rubs, gallop, clicks GI/Abdominal exam: Present: soft. Absent: distended, tenderness, guarding, rebound, rigid Back exam: Present: CVA tenderness (L). Absent: CVA tenderness (R) Neurological exam: Present: alert, oriented X3 Psychiatric exam: Present: normal affect, normal mood Skin exam: Present: warm, dry Course Vital Signs 06/12/23 06/12/23 06/12/23 20:05 21:52 22:56 Temperature 98.8 F 97.8 F Pulse Rate 98 79 91 Respiratory 16 16 16 Rate Blood Pressure 133/87 118/77 119/80 O2 Sat by Pulse 98 100 100 Oximetry Medical Decision Making - Medical Decision Making Was pt. sent in by a medical professional or institution (, PA, EKG MONITOR TECH, urgent ca re, hospital, or halfway...) When possible be specific @ -No Did you speak to anyone other than the patient for history (EMS, parent, family, police, friend...)? What history was obtained from this source @ -No Did you review nursing and triage notes (agree or disagree)? Why? @ -I reviewed and agree with nursing and triage notes Were old charts reviewed (outside hosp., previous admission, EMS record, old EKG, old radiological studies, urgent care reports/EKG's, halfway records)? Report findings @ -No old charts were reviewed Differential Diagnosis (chest pain, altered mental status, abdominal pain women, abdominal pain men, vaginal bleeding, weakness, fever, dyspnea, syncope, headache, dizziness, GI bleed, back pain, seizure, CVA, palpatations, mental health, musculoskeletal)? @ - MDM Differential Back Pain: Strain, zoster, cauda equina syndrome, epidural abscess, vertebral osteomyelitis, discitis, fracture, subluxation, disc herniation, DJD, spinal stenosis, dissection, AAA, pancreatitis, peptic ulcer disease, pyelonephritis, kidney stone this is not meant to be an all-inclusive list. EKG interpreted by me (3pts min.). @ -As above X-rays interpreted by me (1pt min.). @ -None done CT interpreted by me (1pt min.). @ -None done U/S interpreted by me (1pt. min.). @ -None done What testing was considered but not performed or refused? (CT, X-rays, U/S, labs)? Why? @ -None What meds were considered but not given or refused? Why? @ -None Did you discuss the management of the patient with other professionals (professionals i.e. , PA, EKG MONITOR TECH, lab, RT, psych nurse, social service technician, field account director, teacher, military source operations officer, family service caseworker)? Give summary @ -No Was smoking cessation discussed for >3mins.? @ -No Was critical care preformed (if so, how long)? @ -No Were there social determinants of health that impacted care today? How? (Homelessness, low income, unemployed, alcoholism, drug addiction, transportation, low edu. Level, literacy, decrease access to med. care, penitentiary, rehab)? @ -No Was there de-escalation of care discussed even if they declined (Discuss DNR or withdrawal of care, Hospice)? DNR status @ -No What co-morbidities impacted this encounter? (DM, HTN, Smoking, COPD, CAD, Cancer, CVA, ARF, Chemo, Hep., AIDS, mental health diagnosis, sleep apnea, morbid obesity)? @ -None Was patient admitted / discharged? Hospital course, mention meds given and route, prescriptions, significant lab abnormalities, going to OR and other pertinent info. @ -48-year-old female presenting with chief complaint of left-sided flank pain. History of kidney stones. History and physical exam were conducted. WBC 10.9, may be reactive, this has been common for the patient in the past. Large blood seen on urine, 9 WBCs, likely from contamination. Patient is already on Keflex. On reassessment after pain and nausea medication patient reports resolution of her symptoms. She is instructed to follow-up with her urologist. Continue her Keflex. Follow-up with PCP. Report back to ER with any new or worsening symptoms. Discussed return parameters and answered all questions. Patient c onveyed verbal understanding and agreed to the plan. I discussed this case in detail with my attending Dr. Ellington Undiagnosed new problem with uncertain prognosis? @ -No Drug Therapy requiring intensive monitoring for toxicity (Heparin, Nitro, Insulin, Cardizem)? @ -No Were any procedures done? @ -No Diagnosis/symptom? @ -Kidney stone Acute, or Chronic, or Acute on Chronic? @ -Acute Uncomplicated (without systemic symptoms) or Complicated (systemic symptoms)? @ -Uncomplicated Side effects of treatment? @ -No Exacerbation, Progression, or Severe Exacerbation? @ -No Poses a threat to life or bodily function? How? (Chest pain, [place], [place], pneumonia, PE, COPD, DKA, ARF, appy, cholecystitis, CVA, Diverticulitis, Homicidal, Suicidal, threat to staff... and all critical care pts) @ -No - Lab Data Result diagrams: 06/12/23 21:15 06/12/23 21:15 Lab Results 06/12/23 06/12/23 06/12/23 Range/Units 20:12 21:15 21:15 WBC 10.9 H (3.8-10.6) k/uL RBC 4.64 (3.80-5.40) m/uL Hgb 14.2 (11.4-16.0) gm/dL Hct 39.2 (34.0-46.0) % MCV 84.4 (80.0-100.0) fL MCH 30.6 (25.0-35.0) pg MCHC 36.3 (31.0-37.0) g/dL RDW 12.5 (11.5-15.5) % Plt Count 252 (150-450) k/uL MPV 7.8 Neutrophils % (Manual) 45 % Lymphocytes % (Manual) 51 % Monocytes % (Manual) 2 % Eosinophils % (Manual) 2 % Neutrophils # (Manual) 4.91 (1.3-7.7) k/uL Lymphocytes # (Manual) 5.56 H (1.0-4.8) k/uL Monocytes # (Manual) 0.22 (0-1.0) k/uL Eosinophils # (Manual) 0.22 (0-0.7) k/uL Nucleated RBCs 0 (0-0) /100 WBC Manual Slide Review Performed Sodium 138 (137-145) mmol/L Potassium 3.4 L (3.5-5.1) mmol/L Chloride 105 (98-107) mmol/L Carbon Dioxide 23 (22-30) mmol/L Anion Gap 10 mmol/L BUN 13 (7-17) mg/dL Creatinine 0.59 (0.52-1.04) mg/dL Est GFR (CKD-EPI)AfAm >90 (>60 ml/min/1.73 sqM) Est GFR (CKD-EPI)NonAf >90 (>60 ml/min/1.73 sqM) Glucose 101 H (74-99) mg/dL Calcium 9.5 (8.4-10.2) mg/dL Total Bilirubin 0.9 (0.2-1.3) mg/dL AST 26 (14-36) U/L ALT 23 (4-34) U/L Alkaline Phosphatase 71 (38-126) U/L Total Protein 6.9 (6.3-8.2) g/dL Albumin 4.3 (3.5-5.0) g/dL Urine Color Light Red Urine Appearance Cloudy H (Clear) Urine pH 6.0 (5.0-8.0) Ur Specific [place] 1.037 H (1.001-1.035) Urine Protein 1+ H (Negative) Urine Glucose (UA) Negative (Negative) Urine Ketones Trace H (Negative) Urine Blood Large H (Negative) Urine Nitrite Negative (Negative) Urine Bilirubin Negative (Negative) Urine Urobilinogen 3.0 (<2.0) mg/dL Ur Leukocyte Esterase Small H (Negative) Urine RBC >182 H (0-5) /hpf Urine WBC 9 H (0-5) /hpf Ur Squamous Epith Cells 29 H (0-4) /hpf Urine Mucus Many H (None) /hpf Disposition Clinical Impression: Kidney stone Disposition: HOME SELF-CARE Condition: Good Instructions (If sedation given, give patient instructions): Kidney Stones (ED) Additional Instructions: Follow-up with your urologist. Report back to ER with any worsening symptoms. Is patient prescribed a controlled substance at d/c from ED?: No Referrals: Rajiv Sexton MD [Primary Care Provider] - 1-2 days Time of Disposition: 22:42
[2023-06-12 23:14] VITALS: BP 119/80; PULSE 91; TEMP 97.8
== END 2023-06-12 22:58 | disposition home or self-care (01) ==
LOC: EC 20:04
DX: N20.0 Calculus of kidney (principal); E11.9 Type 2 diabetes mellitus without complications; I10 Essential (primary) hypertension; E78.5 Hyperlipidemia, unspecified; F31.9 Bipolar disorder, unspecified; F41.9 Anxiety disorder, unspecified; F17.200 Nicotine dependence, unspecified, uncomplicated; Z79.85 Long-term (current) use of injectable non-insulin antidiabetic drugs; Z79.84 Long term (current) use of oral hypoglycemic drugs; Z79.899 Other long term (current) drug therapy; Z88.0 Allergy status to penicillin; Z88.1 Allergy status to other antibiotic agents; Z88.2 Allergy status to sulfonamides; Z88.8 Allergy status to other drugs, medicaments and biological substances; Z91.041 Radiographic dye allergy status; Z91.018 Allergy to other foods; Z90.49 Acquired absence of other specified parts of digestive tract
CPT/HCPCS: 36415; 80053; 85025; 81001; 99284; 96374; 96361; J1170

== ENCOUNTER 2023-07-13 03:59 | Emergency (ER) | payer OTHER ==
[2023-07-13 04:57] LABS: Basophils # (A) 0.1 k/uL (0-0.2); Basophils % (A) 1 %; Eosinophils # (A) 0.6 k/uL (0-0.7); Eosinophils % (A) 4 %; HCT 41.6 % (34.0-46.0); HGB 14.9 gm/dL (11.4-16.0); Lymphocytes # (A) 5.5 k/uL (1.0-4.8); Lymphocytes % (A) 43 %; MCH 31.2 pg (25.0-35.0); MCHC 35.7 g/dL (31.0-37.0); MCV 87.4 fL (80.0-100.0); Mean Platelet Volume 7.7; Monocytes # (A) 0.6 k/uL (0-1.0); Monocytes % (A) 4 %; Neutrophils % (A) 46 %; Platelet Count 254 k/uL (150-450); RBC 4.76 m/uL (3.80-5.40); RDW 12.2 % (11.5-15.5); WBC 12.9 k/uL (3.8-10.6)
[2023-07-13 05:06] LABS: ALT 27 U/L (4-34); AST 31 U/L (14-36); African American GFR (CKD) >90 (>60 ml/min/1.73 sqM); Albumin 4.6 g/dL (3.5-5.0); Alkaline Phosphatase 78 U/L (38-126); Amylase 61 U/L (30-110); Anion Gap 12 mmol/L; Appearance,Urine Cloudy (Clear); Bacteria,Urine Rare /hpf; Bilirubin,Urine Negative (Negative); Blood Urea Nitrogen 13 mg/dL (7-17); Blood,Urine Large (Negative); Calcium 9.4 mg/dL (8.4-10.2); Carbon Dioxide 20 mmol/L (22-30); Chloride 107 mmol/L (98-107); Color,Urine Red; Glucose 98 mg/dL (74-99); Glucose,Urine (UA) Negative (Negative); Ketones,Urine Trace (Negative); Leukocyte Esterase,Urine Small (Negative); Lipase 93 U/L (23-300); Mucus,Urine Many /hpf; Nitrite,Urine Negative (Negative); Non-African American GFR(CKD) >90 (>60 ml/min/1.73 sqM); PH, Urine 5.5 (5.0-8.0); Potassium 3.6 mmol/L (3.5-5.1); Protein,Urine 1+ (Negative); RBC,Urine >182 /hpf (0-5); Sodium 139 mmol/L (137-145); Specific Gravity,Urine 1.036 (1.001-1.035); Squamous Epithelial Cell,Urine 20 /hpf (0-4); Total Bilirubin 0.9 mg/dL (0.2-1.3); Total Protein 7.5 g/dL (6.3-8.2); WBC,Urine 19 /hpf (0-5)
[2023-07-13] MEDS ORDERED: ONDANSETRON 4 MG/2 ML VIAL IVP STA (05:07)
[2023-07-13] MEDS ORDERED: MORPHINE SULFATE 4 MG/ML SYRINGE IV STA (05:07)
--- NOTE | 2023-07-13 05:47 | ED ---
Back Pain HPI - General Chief Complaint: Back Pain/Injury Stated Complaint: Kidney Stone Time Seen by Provider: 07/13/23 04:33 Source: patient Limitations: no limitations - History of Present Illness Initial Comments: This patient is 48-year-old woman with history of frequent kidney stones, presenting with pain related to which she states is a known stone for which she will be having procedure next week. She denies symptoms of infection including no fevers or chills, palpitations, or other symptoms. She does have some associated urgency. MD Complaint: back pain -: days(s) Similar Symptoms Previously: Yes Place: home Radiation: flank Severity: moderate Quality: sharp, aching Consistency: intermittent Improves With: none Worsens With: none Associated Symptoms: difficulty urinating - Related Data Home Medications Medication Instructions Recorded Confirmed oxyCODONE-APAP 10-325MG [Percocet 1 tab PO QID PRN 08/29/17 05/03/23 10-325 mg] PARoxetine HCL [Paxil] 40 mg PO DAILY 03/12/18 05/03/23 PARoxetine [Paxil] 20 mg PO DAILY 06/04/18 05/03/23 Loratadine 10 mg PO DAILY 04/21/20 05/03/23 Dextroamphetamine/Amphetamine 20 mg PO BID 12/07/21 05/03/23 [Dextroamp-Amphetamin 20 mg Tab] Multivitamins, Thera [Multivitamin 1 tab PO DAILY 12/07/21 05/03/23 (formulary)] SUMAtriptan succinate [Imitrex] 100 mg PO DAILY PRN 12/07/21 05/03/23 Atorvastatin [Lipitor] 40 mg PO DAILY 05/03/23 05/03/23 Cholecalciferol [Vitamin D3 (25 25 mcg PO DAILY 05/03/23 05/03/23 Mcg = 1000 Iu)] Cyanocobalamin (Vitamin B-12) 1,000 mcg PO DAILY 05/03/23 05/03/23 [Vitamin B-12] Tirzepatide [Mounjaro] 12.5 mg SQ WE 05/03/23 05/03/23 lisinopriL [Zestril] 10 mg PO DAILY 05/03/23 05/03/23 metFORMIN HCL 1,000 mg PO BID 05/03/23 05/03/23 Previous Rx's Medication Instructions Recorded Ondansetron Odt [Zofran Odt] 4 mg PO Q8HR PRN #20 tab 09/06/22 Allergies Allergy/AdvReac Type Severity Reaction Status Date / Time bupropion HCl Allergy Rash/Hives Verified 07/13/23 04:02 [From Wellbutrin] divalproex sodium Allergy Unknown Verified 07/13/23 04:02 [From Depakote] fentanyl Allergy Swelling Verified 07/13/23 04:02 Iodinated Contrast Media Allergy Anaphylaxis Verified 07/13/23 04:02 [Iodinated Contrast Media - IV Dye] orange juice [[place]] Allergy Rash/Hives Verified 07/13/23 04:02 Penicillins Allergy Rash/Hives/Gi Verified 07/13/23 04:02 Upset Sulfa (Sulfonamide Allergy Rash/Hives Verified 07/13/23 04:02 Antibiotics) sulfamethoxazole Allergy Rash/Hives Verified 07/13/23 04:02 [From Bactrim] trimethoprim [From Bactrim] Allergy Rash/Hives Verified 07/13/23 04:02 Review of Systems ROS Statement: Those systems with pertinent positive or pertinent negative responses have been documented in the HPI. ROS Other: All systems not noted in ROS Statement are negative. Constitutional: Denies: fever, chills, weakness Respiratory: Denies: cough, dyspnea Cardiovascular: Denies: chest pain, palpitations, edema Gastrointestinal: Reports: as per HPI, abdominal pain, nausea. Denies: vomiting, diarrhea, constipation Genitourinary: Reports: frequency. 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 History of Any Multi-Drug Resistant Organisms: ESBL Date of last positivie culture/infection: 05/14/17 MDRO Source:: ESBL URINE, Past Surgical History: Bladder Surgery, Section, Cholecystectomy, Hysterectomy, Orthopedic Surgery, Tubal Ligation Additional Past Surgical History / Comment(s): R ovarian cystectomy, laparoscopic surgery for L ovary that had attached to the bowel, D&C, numerous lithotripsies, nephroscopies, cystoscopies and stents to ureters-none in place at this time, L robotic pyeloplasty with post op infection around kidney which then required a picc line/later removed (pt states was not MRSA), L rotator cuff repair, L wrist tendon surgery, colonoscopy. Kidney stone removal. Past Anesthesia/Blood Transfusion Reactions: Family History of Problems w/ A nesthesia Additional Past Anesthesia/Blood Transfusion Reaction / Comment(s): dad-hard time waking up due to enzyme problems in liver Past Psychological History: ADD/ADHD, Anxiety, Bipolar, Depression, PTSD Smoking Status: Current every day smoker Past Alcohol Use History: None Reported Past Drug Use History: None Reported - Past Family History Brother(s) Family Medical History: Cancer Additional Family Medical History / Comment(s): testicular Father Family Medical History: Coronary Artery Disease (CAD), CVA/TIA, Diabetes Mellitus, Renal Disease Additional Family Medical History / Comment(s): GLAUCOMA,NEUROPATHY HAD TRIPLE CABG, at 56yrs from renal disease. Mother Family Medical History: Hyperlipidemia Additional Family Medical History / Comment(s): DDD, HAD 3 vessel CABG AGE 54. General Exam Limitations: no limitations General appearance: alert, in no apparent distress Head exam: Present: atraumatic, normocephalic Eye exam: Present: normal appearance. Absent: scleral icterus, conjunctival injection ENT exam: Present: normal oropharynx Respiratory exam: Present: normal lung sounds bilaterally. Absent: respiratory distress, wheezes, rales, rhonchi, stridor Cardiovascular Exam: Present: regular rate, normal rhythm, normal heart sounds. Absent: systolic murmur, diastolic murmur, rubs, gallop GI/Abdominal exam: Present: soft. Absent: distended, tenderness, guarding, rebound, rigid, mass Extremities exam: Present: normal inspection, normal capillary refill. Absent: pedal edema, calf tenderness Back exam: Present: normal inspection, CVA tenderness (R). Absent: CVA tenderness (L), vertebral tenderness Neurological exam: Present: alert Skin exam: Present: warm, dry, intact, normal color. Absent: rash Course Vital Signs 07/13/23 07/13/23 07/13/23 04:00 05:44 07:08 Temperature 97.9 F 97.4 F L Pulse Rate 115 H 88 84 Respiratory 20 20 18 Rate Blood Pressure 128/84 116/78 119/85 O2 Sat by Pulse 99 99 99 Oximetry Medical Decision Making - Medical Decision Making Patient is 48-year-old woman with known stone who is having procedure next week. She is evaluated here to ensure there is no evidence of infection. The patient did receive analgesia and will follow-up with her urologist as planned. Was pt. sent in by a medical professional or institution (, PA, CLOTH D[facility]ER, urgent care, hospital, or assisted...) When possible be specific @ -[No] Did you speak to anyone other than the patient for history (EMS, parent, family, police, friend...)? What history was obtained from this source @ -[No] Did you review nursing and triage notes (agree or disagree)? Why? @ -[I reviewed and agree with nursing and triage notes] Were old charts reviewed (outside hosp., previous admission, EMS record, old EKG, old radiological studies, urgent care reports/EKG's, assisted records)? Report findings @ -[No old charts were reviewed] Differential Diagnosis (chest pain, altered mental status, abdominal pain women, abdominal pain men, vaginal bleeding, weakness, fever, dyspnea, syncope, headache, dizziness, GI bleed, back pain, seizure, CVA, palpatations, mental health, musculoskeletal)? @ -[Differential Abdominal Pain Women: Appendicitis, Cholecystitis, diverticulosis, ischemic bowel, pancreatitis, hepatitis, UTI, gastroenteritis, AAA, incarcerated hernia, bowel obstruction, constipation, inflammatory bowel, hepatitis, peptic ulcer disease, splenic infarction, perforated viscus, vulvitis, ovarian torsion, PID, kidney stone, placenta abruption, this is not meant to be an all-inclusive list EKG interpreted by me (3pts min.). @ -[As above] X-rays interpreted by me (1pt min.). @ -[None done] CT interpreted by me (1pt min.). @ -[None done] U/S interpreted by me (1pt. min.). @ -[None done] What testing was considered but not performed or refused? (CT, X-rays, U/S, labs)? Why? @ -[None] What meds were considered but not given or refused? Why? @ -[None] Did you discuss the management of the patient with other professionals (professionals i.e. , PA, CL[facility]ER, lab, RT, psych nurse, director of social services, legal archivist, teacher, operations officer trust department, high risk case manager)? Give summary @ -[No] Was smoking cessation discussed for >3mins.? @ -[No] Was critical care preformed (if so, how long)? @ -[No] Were there social determinants of health that impacted care today? How? (Homelessness, low income, unemployed, alcoholism, drug addiction, transportation, low edu. Level, literacy, decrease access to med. care, snf, rehab)? @ -[No] Was there de-escalation of care discussed even if they declined (Discuss DNR or withdrawal of care, Hospice)? DNR status @ -[No] What co-morbidities impacted this encounter? (DM, HTN, Smoking, COPD, CAD, Cancer, CVA, ARF, Chemo, Hep., AIDS, mental health diagnosis, sleep apnea, morbid obesity)? @ -[None] Was patient admitted / discharged? Hospital course, mention meds given and route, prescriptions, significant lab abnormalities, going to OR and other pertinent info. @ -[See above Undiagnosed new problem with uncertain prognosis? @ -[No] Drug Therapy requiring intensive monitoring for toxicity (Heparin, Nitro, Insulin, Cardizem)? @ -[No] Were any procedures done? @ -[No] Diagnosis/symptom? @ -[Acute right flank pain Acute, or Chronic, or Acute on Chronic? @ -[Acute Uncomplicated (without systemic symptoms) or Complicated (systemic symptoms)? @ -[Uncomplicated Side effects of treatment? @ -[No] Exacerbation, Progression, or Severe Exacerbation? @ -[No] Poses a threat to life or bodily function? How? (Chest pain, [place], OR, pneumonia, PE, COPD, DKA, ARF, appy, cholecystitis, CVA, Diverticulitis, Homicidal, Suicidal, threat to staff... and all critical care pts) @ -[No] - Lab Data Result diagrams: 07/13/23 04:43 07/13/23 04:43 Lab Results 07/13/23 07/13/23 07/13/23 Range/Units 04:43 04:43 04:43 WBC 12.9 H (3.8-10.6) k/uL RBC 4.76 (3.80-5.40) m/uL Hgb 14.9 (11.4-16.0) gm/dL Hct 41.6 (34.0-46.0) % MCV 87.4 (80.0-100.0) fL MCH 31.2 (25.0-35.0) pg MCHC 35.7 (31.0-37.0) g/dL RDW 12.2 (11.5-15.5) % Plt Count 254 (150-450) k/uL MPV 7.7 Neutrophils % 46 % Lymphocytes % 43 % Monocytes % 4 % Eosinophils % 4 % Basophils % 1 % Neutrophils # 6.0 (1.3-7.7) k/uL Lymphocytes # 5.5 H (1.0-4.8) k/uL Monocytes # 0.6 (0-1.0) k/uL Eosinophils # 0.6 (0-0.7) k/uL Basophils # 0.1 (0-0.2) k/uL Manual Slide Review Performed Sodium 139 (137-145) mmol/L Potassium 3.6 (3.5-5.1) mmol/L Chloride 107 (98-107) mmol/L Carbon Dioxide 20 L (22-30) mmol/L Anion Gap 12 mmol/L BUN 13 (7-17) mg/dL Creatinine 0.55 (0.52-1.04) mg/dL Est GFR (CKD-EPI)AfAm >90 (>60 ml/min/1.73 sqM) Est GFR (CKD-EPI)NonAf >90 (>60 ml/min/1.73 sqM) Glucose 98 (74-99) mg/dL Plasma Lactic Acid Brant (0.7-2.0) mmol/L Calcium 9.4 (8.4-10.2) mg/dL Total Bilirubin 0.9 (0.2-1.3) mg/dL AST 31 (14-36) U/L ALT 27 (4-34) U/L Alkaline Phosphatase 78 (38-126) U/L Total Protein 7.5 (6.3-8.2) g/dL Albumin 4.6 (3.5-5.0) g/dL Amylase 61 (30-110) U/L Lipase 93 (23-300) U/L Urine Color Red Urine Appearance Cloudy H (Clear) Urine pH 5.5 (5.0-8.0) Ur Specific [place] 1.036 H (1.001-1.035) Urine Protein 1+ H (Negative) Urine Glucose (UA) Negative (Negative) Urine Ketones Trace H (Negative) Urine Blood Large H (Negative) Urine Nitrite Negative (Negative) Urine Bilirubin Negative (Negative) Urine Urobilinogen 3.0 (<2.0) mg/dL Ur Leukocyte Esterase Small H (Negative) Urine RBC >182 H (0-5) /hpf Urine WBC 19 H (0-5) /hpf Ur Squamous Epith Cells 20 H (0-4) /hpf Urine Bacteria Rare H (None) /hpf Urine Mucus Many H (None) /hpf 07/13/23 Range/Units 04:43 WBC (3.8-10.6) k/uL RBC (3.80-5.40) m/uL Hgb (11.4-16.0) gm/dL Hct (34.0-46.0) % MCV (80.0-100.0) fL MCH (25.0-35.0) pg MCHC (31.0-37.0) g/dL RDW (11.5-15.5) % Plt Count (150-450) k/uL MPV Neutrophils % % Lymphocytes % % Monocytes % % Eosinophils % % Basophils % % Neutrophils # (1.3-7.7) k/uL Lymphocytes # (1.0-4.8) k/uL Monocytes # (0-1.0) k/uL Eosinophils # (0-0.7) k/uL Basophils # (0-0.2) k/uL Manual Slide Review Sodium (137-145) mmol/L Potassium (3.5-5.1) mmol/L Chloride (98-107) mmol/L Carbon Dioxide (22-30) mmol/L Anion Gap mmol/L BUN (7-17) mg/dL Creatinine (0.52-1.04) mg/dL Est GFR (CKD-EPI)AfAm (>60 ml/min/1.73 sqM) Est GFR (CKD-EPI)NonAf (>60 ml/min/1.73 sqM) Glucose (74-99) mg/dL Plasma Lactic Acid Brant 1.0 (0.7-2.0) mmol/L Calcium (8.4-10.2) mg/dL Total Bilirubin (0.2-1.3) mg/dL AST (14-36) U/L ALT (4-34) U/L Alkaline Phosphatase (38-126) U/L Total Protein (6.3-8.2) g/dL Albumin (3.5-5.0) g/dL Amylase (30-110) U/L Lipase (23-300) U/L Urine Color Urine Appearance (Clear) Urine pH (5.0-8.0) Ur Specific [place] (1.001-1.035) Urine Protein (Negative) Urine Glucose (UA) (Negative) Urine Ketones (Negative) Urine Blood (Negative) Urine Nitrite (Negative) Urine Bilirubin (Negative) Urine Urobilinogen (<2.0) mg/dL Ur Leukocyte Esterase (Negative) Urine RBC (0-5) /hpf Urine WBC (0-5) /hpf Ur Squamous Epith Cells (0-4) /hpf Urine Bacteria (None) /hpf Urine Mucus (None) /hpf Disposition Clinical Impression: Flank pain Disposition: HOME SELF-CARE Condition: Good Instructions (If sedation given, give patient instructions): Renal Colic (ED) Is patient prescribed a controlled substance at d/c from ED?: No Referrals: Rajiv Sexton MD [Primary Care Provider] - 1-2 days
[2023-07-13 07:13] VITALS: BP 119/85; PULSE 84; RESP 18; TEMP 97.4
== END 2023-07-13 07:10 | disposition home or self-care (01) ==
LOC: EC 03:59
DX: R10.9 Unspecified abdominal pain (principal); E78.5 Hyperlipidemia, unspecified; E11.9 Type 2 diabetes mellitus without complications; I10 Essential (primary) hypertension; F17.200 Nicotine dependence, unspecified, uncomplicated; Z79.899 Other long term (current) drug therapy; Z91.041 Radiographic dye allergy status; Z88.0 Allergy status to penicillin; Z88.2 Allergy status to sulfonamides; Z88.1 Allergy status to other antibiotic agents; Z91.018 Allergy to other foods; Z88.8 Allergy status to other drugs, medicaments and biological substances; Z86.59 Personal history of other mental and behavioral disorders; Z79.84 Long term (current) use of oral hypoglycemic drugs
CPT/HCPCS: 36415; 80053; 82150; 83605; 83690; 85025; 81001; 99283; 96374; 96375; J2270; J2405

== ENCOUNTER 2023-08-03 03:20 | Emergency (ER) | payer OTHER ==
[2023-08-03 03:39] VITALS: TEMP 98.2
[2023-08-03] MEDS: SODIUM CHLORIDE 0.9% 500 ML 500 ML IV STA (03:59)
[2023-08-03] MEDS: MORPHINE SULFATE 4 MG/ML SYRINGE IVP STA (03:59)
[2023-08-03 04:13] LABS: Basophils # (A) 0.1 k/uL (0-0.2); Basophils % (A) 1 %; Eosinophils # (A) 0.5 k/uL (0-0.7); Eosinophils % (A) 4 %; HCT 40.4 % (34.0-46.0); HGB 13.9 gm/dL (11.4-16.0); Lymphocytes % (A) 41 %; MCH 30.1 pg (25.0-35.0); MCHC 34.5 g/dL (31.0-37.0); MCV 87.1 fL (80.0-100.0); Mean Platelet Volume 7.5; Monocytes # (A) 0.7 k/uL (0-1.0); Monocytes % (A) 6 %; Neutrophils # (A) 5.6 k/uL (1.3-7.7); Neutrophils % (A) 46 %; Platelet Count 259 k/uL (150-450); RBC 4.64 m/uL (3.80-5.40); RDW 12.3 % (11.5-15.5); WBC 12.1 k/uL (3.8-10.6)
[2023-08-03 04:21] LABS: Appearance,Urine Cloudy (Clear); Bacteria,Urine Occasional /hpf; Bilirubin,Urine Negative (Negative); Blood,Urine Large (Negative); Color,Urine Yellow; Glucose,Urine (UA) Negative (Negative); Ketones,Urine Negative (Negative); Leukocyte Esterase,Urine Negative (Negative); Mucus,Urine Rare /hpf; Nitrite,Urine Negative (Negative); PH, Urine 5.5 (5.0-8.0); Protein,Urine Negative (Negative); RBC,Urine >182 /hpf (0-5); Specific Gravity,Urine 1.015 (1.001-1.035); Squamous Epithelial Cell,Urine 10 /hpf (0-4); Urobilinogen,Urine <2.0 mg/dL (<2.0); WBC,Urine 9 /hpf (0-5)
[2023-08-03 04:24] LABS: ALT 22 U/L (4-34); AST 26 U/L (14-36); African American GFR (CKD) >90 (>60 ml/min/1.73 sqM); Albumin 4.4 g/dL (3.5-5.0); Alkaline Phosphatase 78 U/L (38-126); Anion Gap 7 mmol/L; Blood Urea Nitrogen 10 mg/dL (7-17); Calcium 9.9 mg/dL (8.4-10.2); Carbon Dioxide 23 mmol/L (22-30); Chloride 107 mmol/L (98-107); Glucose 117 mg/dL (74-99); Non-African American GFR(CKD) >90 (>60 ml/min/1.73 sqM); Potassium 3.6 mmol/L (3.5-5.1); Sodium 137 mmol/L (137-145); Total Bilirubin 1.2 mg/dL (0.2-1.3); Total Protein 7.2 g/dL (6.3-8.2)
[2023-08-03 05:03] VITALS: RESP 16
--- NOTE | 2023-08-03 05:20 | ED ---
General Adult HPI - General Chief complaint: Back Pain/Injury Stated complaint: kidney stone Time Seen by Provider: 08/03/23 03:30 Source: patient Mode of arrival: ambulatory Limitations: no limitations - History of Present Illness Initial comments: 48-year-old female well-known to the emergency department who presents complaining of left flank pain. She has history of multiple kidney stones. States that she feels as if she is passing 1 right now. She had surgery 10 days ago to have a stone removed on the same side. Denies any stent placement. Loren jm is following with a urologist out of town. She does admit to hematuria. No vaginal bleeding or discharge. No diarrhea, constipation, black or bloody stools. Denies any fevers. States that she has taken all of her home meds at home without any alleviation in her pain. No other alleviating, precipitating or modifying factors - Related Data Home Medications Medication Instructions Recorded Confirmed oxyCODONE-APAP 10-325MG [Percocet 1 tab PO QID PRN 08/29/17 05/03/23 10-325 mg] PARoxetine HCL [Paxil] 40 mg PO DAILY 03/12/18 05/03/23 PARoxetine [Paxil] 20 mg PO DAILY 06/04/18 05/03/23 Loratadine 10 mg PO DAILY 04/21/20 05/03/23 Dextroamphetamine/Amphetamine 20 mg PO BID 12/07/21 05/03/23 [Dextroamp-Amphetamin 20 mg Tab] Multivitamins, Thera [Multivitamin 1 tab PO DAILY 12/07/21 05/03/23 (formulary)] SUMAtriptan succinate [Imitrex] 100 mg PO DAILY PRN 12/07/21 05/03/23 Atorvastatin [Lipitor] 40 mg PO DAILY 05/03/23 05/03/23 Cholecalciferol [Vitamin D3 (25 25 mcg PO DAILY 05/03/23 05/03/23 Mcg = 1000 Iu)] Cyanocobalamin (Vitamin B-12) 1,000 mcg PO DAILY 05/03/23 05/03/23 [Vitamin B-12] Tirzepatide [Mounjaro] 12.5 mg SQ WE 05/03/23 05/03/23 lisinopriL [Zestril] 10 mg PO DAILY 05/03/23 05/03/23 metFORMIN HCL 1,000 mg PO BID 05/03/23 05/03/23 Previous Rx's Medication Instructions Recorded Ondansetron Odt [Zofran Odt] 4 mg PO Q8HR PRN #20 tab 09/06/22 Allergies Allergy/AdvReac Type Severity Reaction Status Date / Time bupropion HCl Allergy Rash/Hives Verified 08/03/23 03:28 [From Wellbutrin] divalproex sodium Allergy Unknown Verified 08/03/23 03:28 [From Depakote] fentanyl Allergy Swelling Verified 08/03/23 03:28 Iodinated Contrast Media Allergy Anaphylaxis Verified 08/03/23 03:28 [Iodinated Contrast Media - IV Dye] orange juice [[place]] Allergy Rash/Hives Verified 08/03/23 03:28 Penicillins Allergy Rash/Hives/Gi Verified 08/03/23 03:28 Upset Sulfa (Sulfonamide Allergy Rash/Hives Verified 08/03/23 03:28 Antibiotics) sulfamethoxazole Allergy Rash/Hives Verified 08/03/23 03:28 [From Bactrim] trimethoprim [From Bactrim] Allergy Rash/Hives Verified 08/03/23 03:28 Review of Systems ROS Statement: Those systems with pertinent positive or pertinent negative responses have been documented in the HPI. ROS Other: All systems not noted in ROS Statement are negative. 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 History of Any Multi-Drug Resistant Organisms: ESBL Date of last positivie culture/infection: 05/14/17 MDRO Source:: ESBL URINE, Past Surgical History: Bladder Surgery, Section, Cholecystectomy, Hysterectomy, Orthopedic Surgery, Tubal Ligation Additional Past Surgical History / Comment(s): R ovarian cystectomy, laparoscopic surgery for L ovary that had attached to the bowel, D&C, numerous lithotripsies, nephroscopies, cystoscopies and stents to ureters-none in place at this time, L robotic pyeloplasty with post op infection around kidney which t hen required a picc line/later removed (pt states was not MRSA), L rotator cuff repair, L wrist tendon surgery, colonoscopy. Kidney stone removal. Past Anesthesia/Blood Transfusion Reactions: Family History of Problems w/ Anesthesia Additional Past Anesthesia/Blood Transfusion Reaction / Comment(s): dad-hard time waking up due to enzyme problems in liver Past Psychological History: ADD/ADHD, Anxiety, Bipolar, Depression, PTSD Smoking Status: Current every day smoker Past Alcohol Use History: None Reported Past Drug Use History: None Reported - Past Family History Brother(s) Family Medical History: Cancer Additional Family Medical History / Comment(s): testicular Father Family Medical History: Coronary Artery Disease (CAD), CVA/TIA, Diabetes Mellitus, Renal Disease Additional Family Medical History / Comment(s): GLAUCOMA,NEUROPATHY HAD TRIPLE CABG, at 56yrs from renal disease. Mother Family Medical History: Hyperlipidemia Additional Family Medical History / Comment(s): DDD, HAD 3 vessel CABG AGE 54. General Exam Limitations: no limitations General appearance: alert, in no apparent distress Head exam: Present: atraumatic, normocephalic, normal inspection Eye exam: Present: normal appearance, PERRL, EOMI. Absent: scleral icterus, conjunctival injection, periorbital swelling ENT exam: Present: normal exam, mucous membranes moist Neck exam: Present: normal inspection. Absent: tenderness, meningismus, lymphadenopathy Respiratory exam: Present: normal lung sounds bilaterally. Absent: respiratory distress, wheezes, rales, rhonchi, stridor Cardiovascular Exam: Present: regular rate, normal rhythm, normal heart sounds. Absent: systolic murmur, diastolic murmur, rubs, gallop, clicks GI/Abdominal exam: Present: soft, normal bowel sounds. Absent: distended, tenderness, guarding, rebound, rigid Extremities exam: Present: normal inspection, full ROM, normal capillary refill. Absent: tenderness, pedal edema, joint swelling, calf tenderness Back exam: Present: normal inspection Neurological exam: Present: alert, oriented X3, CN II-XII intact Psychiatric exam: Present: normal affect, normal mood Skin exam: Present: warm, dry, intact, normal color. Absent: rash Course Vital Signs 08/03/23 08/03/23 08/03/23 03:26 04:40 05:27 Temperature 98.2 F Pulse Rate 92 100 99 Respiratory 18 16 16 Rate Blood Pressure 124/84 118/74 114/74 O2 Sat by Pulse 100 97 98 Oximetry Medical Decision Making - Medical Decision Making Was pt. sent in by a medical professional or institution (, STUART, SQL ETL DEVELOPER, urgent care, hospital, or group home...) When possible be specific @ -No Did you speak to anyone other than the patient for history (EMS, parent, family, police, friend...)? What history was obtained from this source @ -No Did you review nursing and triage notes (agree or disagree)? Why? @ -I reviewed and agree with nursing and triage notes Were old charts reviewed (outside hosp., previous admission, EMS record, old EKG, old radiological studies, urgent care reports/EKG's, group home records)? Report findings @ -No old charts were reviewed Differential Diagnosis (chest pain, altered mental status, abdominal pain women, abdominal pain men, vaginal bleeding, weakness, fever, dyspnea, syncope, headache, dizziness, GI bleed, back pain, seizure, CVA, palpatations, mental health, musculoskeletal)? @ -Differential Abdominal Pain Women: Appendicitis, Cholecystitis, diverticulosis, ischemic bowel, pancreatitis, hepatitis, UTI, gastroenteritis, AAA, incarcerated hernia, bowel obstruction, constipation, inflammatory bowel, hepatitis, peptic ulcer disease, splenic infarction, perforated viscus, vulvitis, ovarian torsion, PID, kidney stone, placenta abruption, this is not meant to be an all-inclusive list EKG interpreted by me (3pts min.). @ -Not done X-rays interpreted by me (1pt min.). @ -Yes and demonstrates no large stone CT interpreted by me (1pt min.). @ -None done U/S interpreted by me (1pt. min.). @ -None done What testing was considered but not performed or refused? (CT, X-rays, U/S, labs)? Why? @ -CT was considered however patient has had several CTs in the past few years What meds were considered but not given or refused? Why? @ -None Did you discuss the management of the patient with other professionals (professionals i.e. STUART Yeager, SQL ETL DEVELOPER, lab, RT, psych nurse, medical social consultant, edge banding machine offbearer, teacher, correction officer city or county jail, home health care case manager)? Give summary @ -No Was smoking cessation discussed for >3mins.? @ -No Was critical care preformed (if so, how long)? @ -No Were there social determinants of health that impacted care today? How? (Homelessness, low income, unemployed, alcoholism, drug addiction, transpor tation, low edu. Level, literacy, decrease access to med. care, residential, rehab)? @ -No Was there de-escalation of care discussed even if they declined (Discuss DNR or withdrawal of care, Hospice)? DNR status @ -No What co-morbidities impacted this encounter? (DM, HTN, Smoking, COPD, CAD, Cancer, CVA, ARF, Chemo, Hep., AIDS, mental health diagnosis, sleep apnea, morbid obesity)? @ -Kidney stones Was patient admitted / discharged? Hospital course, mention meds given and route, prescriptions, significant lab abnormalities, going to OR and other pertinent info. @ -Upon arrival patient was placed into room 10. Thorough history and physical exam was performed. IV was established. Laboratory studies are conducted. Patient does provide a urine sample. Patient does go for an x-ray. Results of the testing are relayed to the patient. She is given a dose of pain medications. Patient feels improved at this time and is ready to go home. Instructed that she follow-up with her urologist and return for any new or worsening symptoms. Patient agreeable to plan was discharged in stable condit ion Undiagnosed new problem with uncertain prognosis? @ -No Drug Therapy requiring intensive monitoring for toxicity (Heparin, Nitro, Insulin, Cardizem)? @ -No Were any procedures done? @ -No Diagnosis/symptom? @ -Acute left flank pain, suspected ureterolithiasis, hematuria Acute, or Chronic, or Acute on Chronic? @ -Acute Uncomplicated (without systemic symptoms) or Complicated (systemic symptoms)? @ -Complicated Side effects of treatment? @ -No Exacerbation, Progression, or Severe Exacerbation? @ -No Poses a threat to life or bodily function? How? (Chest pain, [place], [place], pneumonia, PE, COPD, DKA, ARF, appy, cholecystitis, CVA, Diverticulitis, Homicidal, Suicidal, threat to staff... and all critical care pts) @ -No - Lab Data Result diagrams: 08/03/23 03:55 08/03/23 03:55 Lab Results 08/03/23 08/03/23 08/03/23 Range/Units 03:45 03:55 03:55 WBC 12.1 H (3.8-10.6) k/uL RBC 4.64 (3.80-5.40) m/uL Hgb 13.9 (11.4-16.0) gm/dL Hct 40.4 (34.0-46.0) % MCV 87.1 (80.0-100.0) fL MCH 30.1 (25.0-35.0) pg MCHC 34.5 (31.0-37.0) g/dL RDW 12.3 (11.5-15.5) % Plt Count 259 (150-450) k/uL MPV 7.5 Neutrophils % 46 % Lymphocytes % 41 % Monocytes % 6 % Eosinophils % 4 % Basophils % 1 % Neutrophils # 5.6 (1.3-7.7) k/uL Lymphocytes # 5.0 H (1.0-4.8) k/uL Monocytes # 0.7 (0-1.0) k/uL Eosinophils # 0.5 (0-0.7) k/uL Basophils # 0.1 (0-0.2) k/uL Sodium 137 (137-145) mmol/L Potassium 3.6 (3.5-5.1) mmol/L Chloride 107 (98-107) mmol/L Carbon Dioxide 23 (22-30) mmol/L Anion Gap 7 mmol/L BUN 10 (7-17) mg/dL Creatinine 0.50 L (0.52-1.04) mg/dL Est GFR (CKD-EPI)AfAm >90 (>60 ml/min/1.73 sqM) Est GFR (CKD-EPI)NonAf >90 (>60 ml/min/1.73 sqM) Glucose 117 H (74-99) mg/dL Calcium 9.9 (8.4-10.2) mg/dL Total Bilirubin 1.2 (0.2-1.3) mg/dL AST 26 (14-36) U/L ALT 22 (4-34) U/L Alkaline Phosphatase 78 (38-126) U/L Total Protein 7.2 (6.3-8.2) g/dL Albumin 4.4 (3.5-5.0) g/dL Urine Color Yellow Urine Appearance Cloudy H (Clear) Urine pH 5.5 (5.0-8.0) Ur Specific [place] 1.015 (1.001-1.035) Urine Protein Negative (Negative) Urine Glucose (UA) Negative (Negative) Urine Ketones Negative (Negative) Urine Blood Large H (Negative) Urine Nitrite Negative (Negative) Urine Bilirubin Negative (Negative) Urine Urobilinogen <2.0 (<2.0) mg/dL Ur Leukocyte Esterase Negative (Negative) Urine RBC >182 H (0-5) /hpf Urine WBC 9 H (0-5) /hpf Ur Squamous Epith Cells 10 H (0-4) /hpf Urine Bacteria Occasional H (None) /hpf Urine Mucus Rare H (None) /hpf Disposition Clinical Impression: Left flank pain Disposition: HOME SELF-CARE Condition: Stable Instructions (If sedation given, give patient instructions): Flank Pain (ED) Additional Instructions: Call the urologist to update them that you were in the emergency department. Return to the emergency department for any new or worsening symptoms Is patient prescribed a controlled substance at d/c from ED?: No Referrals: Rajiv Sexton MD [Primary Care Provider] - 1-2 days Time of Disposition: 05:20
[2023-08-03 05:30] VITALS: BP 114/74; PULSE 99
--- NOTE | 2023-08-03 06:41 | XR ---
EXAM: XR Abdomen, 1 View CLINICAL HISTORY: ITS.REASON XR Reason: abdominal pain TECHNIQUE: Frontal upright view of the abdomen/pelvis. 2 images. COMPARISON: XR Abdomen dated 04/18/22 FINDINGS: Gastrointestinal tract: Unremarkable. No dilation. No free air. Organs: Cholecystectomy. Bones/joints: Mild levoscoliosis of the lumbar spine. No acute fracture. IMPRESSION: No acute findings.
== END 2023-08-03 05:28 | disposition home or self-care (01) ==
LOC: EC 03:20
DX: R10.9 Unspecified abdominal pain (principal); E11.9 Type 2 diabetes mellitus without complications; E78.5 Hyperlipidemia, unspecified; I10 Essential (primary) hypertension; F41.9 Anxiety disorder, unspecified; F31.9 Bipolar disorder, unspecified; F90.9 Attention-deficit hyperactivity disorder, unspecified type; F17.200 Nicotine dependence, unspecified, uncomplicated; Z79.899 Other long term (current) drug therapy; Z79.84 Long term (current) use of oral hypoglycemic drugs; Z88.2 Allergy status to sulfonamides; Z88.0 Allergy status to penicillin; Z91.041 Radiographic dye allergy status; Z88.1 Allergy status to other antibiotic agents; Z88.8 Allergy status to other drugs, medicaments and biological substances
CPT/HCPCS: 36415; 80053; 85025; 81001; 74018; 99284; 96374; 96375; 96361; J2270

== ENCOUNTER 2023-09-06 01:27 | Emergency (ER) | payer OTHER ==
[2023-09-06 01:38] VITALS: RESP 18; TEMP 98
--- NOTE | 2023-09-06 01:57 | ED ---
Female Urogenital HPI - General Chief complaint: Urogenital Stated complaint: Flank Pain Time Seen by Provider: 09/06/23 01:35 Source: patient Mode of arrival: ambulatory Limitations: no limitations - History of Present Illness Initial comments: 48-year-old female with a past medical history significant for kidney stones presenting to the ED with a chief complaint of flank pain. Patient notes history of kidney stones and notes that she has an upcoming surgery for a stone on the left this following Sunday. Reports that due to history of kidney ston es always has hematuria. Over the past 2 days has had some intermittent left flank pain worsening compared to history of chronic flank pain. Reports since onset pain has started to become more constant in nature. Also does note hematuria seems to be worse as well. Some associated urinary frequency. No pain with urination. No fever at this time. No chest pain or shortness of breath. No other complaints at this time. Review of prior records shows multiple ED visits for similar complaints. - Related Data Home Medications Medication Instructions Recorded Confirmed oxyCODONE-APAP 10-325MG [Percocet 1 tab PO QID PRN 08/29/17 05/03/23 10-325 mg] PARoxetine HCL [Paxil] 40 mg PO DAILY 03/12/18 05/03/23 PARoxetine [Paxil] 20 mg PO DAILY 06/04/18 05/03/23 Loratadine 10 mg PO DAILY 04/21/20 05/03/23 Dextroamphetamine/Amphetamine 20 mg PO BID 12/07/21 05/03/23 [Dextroamp-Amphetamin 20 mg Tab] Multivitamins, Thera [Multivitamin 1 tab PO DAILY 12/07/21 05/03/23 (formulary)] SUMAtriptan succinate [Imitrex] 100 mg PO DAILY PRN 12/07/21 05/03/23 Atorvastatin [Lipitor] 40 mg PO DAILY 05/03/23 05/03/23 Cholecalciferol [Vitamin D3 (25 25 mcg PO DAILY 05/03/23 05/03/23 Mcg = 1000 Iu)] Cyanocobalamin (Vitamin B-12) 1,000 mcg PO DAILY 05/03/23 05/03/23 [Vitamin B-12] Tirzepatide [Mounjaro] 12.5 mg SQ WE 05/03/23 05/03/23 lisinopriL [Zestril] 10 mg PO DAILY 05/03/23 05/03/23 metFORMIN HCL 1,000 mg PO BID 05/03/23 05/03/23 Previous Rx's Medication Instructions Recorded Ondansetron Odt [Zofran Odt] 4 mg PO Q8HR PRN #20 tab 09/06/22 Allergies Allergy/AdvReac Type Severity Reaction Status Date / Time bupropion HCl Allergy Rash/Hives Verified 09/06/23 01:34 [From Wellbutrin] divalproex sodium Allergy Unknown Verified 09/06/23 01:34 [From Depakote] fentanyl Allergy Swelling Verified 09/06/23 01:34 Iodinated Contrast Media Allergy Anaphylaxis Verified 09/06/23 01:34 [Iodinated Contrast Media - IV Dye] orange juice [[place]] Allergy Rash/Hives Verified 09/06/23 01:34 Penicillins Allergy Rash/Hives/Gi Verified 09/06/23 01:34 Upset Sulfa (Sulfonamide Allergy Rash/Hives Verified 09/06/23 01:34 Antibiotics) sulfamethoxazole Allergy Rash/Hives Verified 09/06/23 01:34 [From Bactrim] trimethoprim [From Bactrim] Allergy Rash/Hives Verified 09/06/23 01:34 Review of Systems ROS Statement: Those systems with pertinent positive or pertinent negative responses have been documented in the HPI. ROS Other: All systems not noted in ROS Statement are negative. 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 History of Any Multi-Drug Resistant Organisms: ESBL Date of last positivie culture/infection: 05/14/17 MDRO Source:: ESBL URINE, Past Surgical History: Bladder Surgery, Section, Cholecystectomy, Hysterectomy, Orthopedic Surgery, Tubal Ligation Additional Past Surgical History / Comment(s): R ovarian cystectomy, laparoscopic surgery for L ovary that had attached to the bowel, D&C, numerous lithotripsies, nephroscopies, cystoscopies and stents to ureters-none in place at this time, L robotic pyeloplasty with post op infection around kidney which then required a picc line/later removed (pt states was not MRSA), L rotator cuff repair, L wrist tendon surgery, colonoscopy. Kidney stone removal. Past Anesthesia/Blood Transfusion Reactions: Family History of Problems w/ Anesthesia Additional Past Anesthesia/Blood Transfusion Reaction / Comment(s): dad-hard time waking up due to enzyme problems in liver Past Psychological History: ADD/ADHD, Anxiety, Bipolar, Depression, PTSD Smoking Status: Current every day smoker Past Alcohol Use History: None Reported Past Drug Use History: None Reported - Past Family History Brother(s) Family Medical History: Cancer Additional Family Medical History / Comment(s): testicular Father Family Medical History: Coronary Artery Disease (CAD), CVA/TIA, Diabetes Mellitus, Renal Disease Additional Family Medical History / Comment(s): GLAUCOMA,NEUROPATHY HAD TRIPLE CABG, at 56yrs from renal disease. Mother Family Medical History: Hyperlipidemia Additional Family Medical History / Comment(s): DDD, HAD 3 vessel CABG AGE 54. General Exam Limitations: no limitations General appearance: alert Neck exam: Present: normal inspection Respiratory exam: Present: normal lung sounds bilaterally Cardiovascular Exam: Present: regular rate, normal rhythm GI/Abdominal exam: Present: soft (No rebound guarding or rigidity. No significant abdominal tenderness to palpation. Left CVA tenderness to percussion.) Extremities exam: Present: normal inspection Neurological exam: Present: alert, oriented X3 Skin exam: Present: warm, dry Course Vital Signs 09/06/23 01:30 Temperature 98.0 F Pulse Rate 91 Respiratory 18 Rate Blood Pressure 117/79 O2 Sat by Pulse 99 Oximetry Medical Decision Making - Medical Decision Making Was pt. sent in by a medical professional or institution (, PA, [facility], urgent care, hospital, or long-term...) When possible be specific @ -No Did you speak to anyone other than the patient for history (EMS, parent, family, police, friend...)? What history was obtained from this source @ -No Did you review nursing and triage notes (agree or disagree)? Why? @ -I reviewed and agree with nursing and triage notes Were old charts reviewed (outside hosp., previous admission, EMS record, old EKG, old radiological studies, urgent care reports/EKG's, long-term records)? Report findings @ -Prior visits reviewed. For further details please HPI. Differential Diagnosis (chest pain, altered mental status, abdominal pain women, abdominal pain men, vaginal bleeding, weakness, fever, dyspnea, syncope, headache, dizziness, GI bleed, back pain, seizure, CVA, palpatations, mental health, musculoskeletal)? @ -Differential Abdominal Pain Women: Appendicitis, Cholecystitis, diverticulosis, ischemic bowel, pancreatitis, hepatitis, UTI, gastroenteritis, AAA, incarcerated hernia, bowel obstruction, constipation, inflammatory bowel, hepatitis, peptic ulcer disease, splenic infa rction, perforated viscus, vulvitis, ovarian torsion, PID, kidney stone, placenta abruption, this is not meant to be an all-inclusive list EKG interpreted by me (3pts min.). @ -As above X-rays interpreted by me (1pt min.). @ -None done CT interpreted by me (1pt min.). @ -CT abdomen pelvis interpreted me showing no evidence of acute finding. U/S interpreted by me (1pt. min.). @ -None done What testing was considered but not performed or refused? (CT, X-rays, U/S, labs)? Why? @ -None What meds were considered but not given or refused? Why? @ -None Did you discuss the management of the patient with other professionals (professionals i.e. , PA, [employer], lab, RT, psych nurse, director of social work, head butler, teacher, targeting acquisition officer, case management specialist)? Give summary @ -No Was smoking cessation discussed for >3mins.? @ -No Was critical care preformed (if so, how long)? @ -No Were there social determinants of health that impacted care today? How? (Homelessness, low income, unemployed, alcoholism, drug addiction, transportation, low edu. Level, literacy, decrease access to med. care, longterm, rehab)? @ -No Was there de-escalation of care discussed even if they declined (Discuss DNR or withdrawal of care, Hospice)? DNR status @ -No What co-morbidities impacted this encounter? (DM, HTN, Smoking, COPD, CAD, Cancer, CVA, ARF, Chemo, Hep., AIDS, mental health diagnosis, sleep apnea, morbid obesity)? @ -History of kidney stones Was patient admitted / discharged? Hospital course, mention meds given and route, prescriptions, significant lab abnormalities, going to OR and other pertinent info. @ -Discharge 48-year-old female with a history of kidney stones notes presenting to the ED with a chief complaint of flank pain. Patient reports she has had longstanding history of flank pain. Reports over the past 2 days has had increasing left flank pain. Also states that she feels as if hematuria has been worsening. Laboratory studies reviewed. CBC shows elevated white blood cell count 11.9. Chemistry panel largely unremarkable. Urinalysis shows greater than 182 red blood cells. 4 white blood cells, contaminated with 7 squamous cells, rare bacteria. Negative nitrites. No significant evidence of infection at this time. CT abdomen pelvis revealed no evidence of acute finding. Patient discharged ho ct in stable condition. States she has urology follow-up this following Sunday. Advise follow-up as scheduled. Discussed return precautions with patient who verbalized agreement. Undiagnosed new problem with uncertain prognosis? @ -No Drug Therapy requiring intensive monitoring for toxicity (Heparin, Nitro, Insulin, Cardizem)? @ -No Were any procedures done? @ -No Diagnosis/symptom? @ -Flank pain Acute, or Chronic, or Acute on Chronic? @ -Acute on chronic Uncomplicated (without systemic symptoms) or Complicated (systemic symptoms)? @ -Uncomplicated Side effects of treatment? @ -No Exacerbation, Progression, or Severe Exacerbation? @ -No Poses a threat to life or bodily function? How? (Chest pain, [place], [place], pneumonia, PE, COPD, DKA, ARF, appy, cholecystitis, CVA, Diverticulitis, Homicidal, [place] icidal, threat to staff... and all critical care pts) @ -No - Lab Data Result diagrams: 09/06/23 02:15 09/06/23 02:15 Lab Results 09/06/23 09/06/23 09/06/23 Range/Units 02:15 02:15 02:15 WBC 11.9 H (3.8-10.6) k/uL RBC 4.71 (3.80-5.40) m/uL Hgb 14.0 (11.4-16.0) gm/dL Hct 41.3 (34.0-46.0) % MCV 87.7 (80.0-100.0) fL MCH 29.8 (25.0-35.0) pg MCHC 34.0 (31.0-37.0) g/dL RDW 12.4 (11.5-15.5) % Plt Count 283 (150-450) k/uL MPV 7.8 Neutrophils % 44 % Lymphocytes % 46 % Monocytes % 5 % Eosinophils % 2 % Basophils % 1 % Neutrophils # 5.2 (1.3-7.7) k/uL Lymphocytes # 5.5 H (1.0-4.8) k/uL Monocytes # 0.6 (0-1.0) k/uL Eosinophils # 0.3 (0-0.7) k/uL Basophils # 0.1 (0-0.2) k/uL Sodium 139 (137-145) mmol/L Potassium 3.5 (3.5-5.1) mmol/L Chloride 107 (98-107) mmol/L Carbon Dioxide 23 (22-30) mmol/L Anion Gap 9 mmol/L BUN 14 (7-17) mg/dL Creatinine 0.53 (0.52-1.04) mg/dL Est GFR (CKD-EPI)AfAm >90 (>60 ml/min/1.73 sqM) Est GFR (CKD-EPI)NonAf >90 (>60 ml/min/1.73 sqM) Glucose 110 H (74-99) mg/dL Calcium 9.4 (8.4-10.2) mg/dL Total Bilirubin 0.8 (0.2-1.3) mg/dL AST 25 (14-36) U/L ALT 18 (4-34) U/L Alkaline Phosphatase 76 (38-126) U/L Total Protein 6.9 (6.3-8.2) g/dL Albumin 4.2 (3.5-5.0) g/dL Amylase 53 (30-110) U/L Lipase 81 (23-300) U/L Urine Color Yellow Urine Appearance Cloudy H (Clear) Urine pH 6.0 (5.0-8.0) Ur Specific [place] 1.030 (1.001-1.035) Urine Protein Trace H (Negative) Urine Glucose (UA) Negative (Negative) Urine Ketones Negative (Negative) Urine Blood Large H (Negative) Urine Nitrite Negative (Negative) Urine Bilirubin Negative (Negative) Urine Urobilinogen 3.0 (<2.0) mg/dL Ur Leukocyte Esterase Negative (Negative) Urine RBC >182 H (0-5) /hpf Urine WBC 4 (0-5) /hpf Ur Squamous Epith Cells 7 H (0-4) /hpf Calcium Oxalate Crystal Few H (None) /hpf Urine Bacteria Rare H (None) /hpf Urine Mucus Occasional H (None) /hpf Urine HCG, Qual (Not Detectd) 09/06/23 Range/Units 02:15 WBC (3.8-10.6) k/uL RBC (3.80-5.40) m/uL Hgb (11.4-16.0) gm/dL Hct (34.0-46.0) % MCV (80.0-100.0) fL MCH (25.0-35.0) pg MCHC (31.0-37.0) g/dL RDW (11.5-15.5) % Plt Count (150-450) k/uL MPV Neutrophils % % Lymphocytes % % Monocytes % % Eosinophils % % Basophils % % Neutrophils # (1.3-7.7) k/uL Lymphocytes # (1.0-4.8) k/uL Monocytes # (0-1.0) k/uL Eosinophils # (0-0.7) k/uL Basophils # (0-0.2) k/uL Sodium (137-145) mmol/L Potassium (3.5-5.1) mmol/L Chloride (98-107) mmol/L Carbon Dioxide (22-30) mmol/L Anion Gap mmol/L BUN (7-17) mg/dL Creatinine (0.52-1.04) mg/dL Est GFR (CKD-EPI)AfAm (>60 ml/min/1.73 sqM) Est GFR (CKD-EPI)NonAf (>60 ml/min/1.73 sqM) Glucose (74-99) mg/dL Calcium (8.4-10.2) mg/dL Total Bilirubin (0.2-1.3) mg/dL AST (14-36) U/L ALT (4-34) U/L Alkaline Phosphatase (38-126) U/L Total Protein (6.3-8.2) g/dL Albumin (3.5-5.0) g/dL Amylase (30-110) U/L Lipase (23-300) U/L Urine Color Urine Appearance (Clear) Urine pH (5.0-8.0) Ur Specific [place] (1.001-1.035) Urine Protein (Negative) Urine Glucose (UA) (Negative) Urine Ketones (Negative) Urine Blood (Negative) Urine Nitrite (Negative) Urine Bilirubin (Negative) Urine Urobilinogen (<2.0) mg/dL Ur Leukocyte Esterase (Negative) Urine RBC (0-5) /hpf Urine WBC (0-5) /hpf Ur Squamous Epith Cells (0-4) /hpf Calcium Oxalate Crystal (None) /hpf Urine Bacteria (None) /hpf Urine Mucus (None) /hpf Urine HCG, Qual Not Detected (Not Detectd) Disposition Clinical Impression: Flank pain Disposition: HOME SELF-CARE Condition: Good Additional Instructions: Please return to the Emergency Department if symptoms worsen or any other concerns. Please follow-up with urology as scheduled. Is patient prescribed a controlled substance at d/c from ED?: No Referrals: Rajiv Sexton MD [Primary Care Provider] - 1-2 days Time of Disposition: 03:13
[2023-09-06] MEDS: HYDROmorphone 1 MG/ML 1 ML SYRINGE IVP STA (02:11)
[2023-09-06] MEDS: ONDANSETRON 4 MG/2 ML VIAL IVP STA (02:11)
[2023-09-06] MEDS: SODIUM CHLORIDE 0.9% 1,000 ML IV STA (02:14)
[2023-09-06 02:41] LABS: Basophils # (A) 0.1 k/uL (0-0.2); Basophils % (A) 1 %; Eosinophils # (A) 0.3 k/uL (0-0.7); Eosinophils % (A) 2 %; HCT 41.3 % (34.0-46.0); Lymphocytes # (A) 5.5 k/uL (1.0-4.8); Lymphocytes % (A) 46 %; MCH 29.8 pg (25.0-35.0); MCV 87.7 fL (80.0-100.0); Mean Platelet Volume 7.8; Monocytes # (A) 0.6 k/uL (0-1.0); Monocytes % (A) 5 %; Neutrophils # (A) 5.2 k/uL (1.3-7.7); Neutrophils % (A) 44 %; Platelet Count 283 k/uL (150-450); RBC 4.71 m/uL (3.80-5.40); RDW 12.4 % (11.5-15.5); WBC 11.9 k/uL (3.8-10.6)
--- NOTE | 2023-09-06 02:42 | CT ---
EXAMINATION TYPE: CT abdomen pelvis wo con DATE OF EXAM: 09/06/2023 HISTORY: pt arrives to ED from home for c/o L flank pain, hematuria, N/V. hx of kidney stones CT DLP: 407.8 mGycm. Automated Exposure Control for Dose Reduction was Utilized. TECHNIQUE: CT scan of the abdomen and pelvis is performed without oral or IV contrast. COMPARISON: Prior CT May 14, 2022 FINDINGS: Within the limitations of a non-contrast study, the following observations are made. LUNG BASES: No significant abnormality is appreciated. LIVER/GB: Cholecystectomy clips are redemonstrated. PANCREAS: No significant abnormality is seen. SPLEEN: No significant abnormality is seen. ADRENALS: No significant abnormality is seen. KIDNEYS: No right-sided renal calculi or hydronephrosis. There are 2 2 mm nonobstructing calculi uppe r pole left kidney coronal images 67 and 68. No hydronephrosis or obstructing left renal calculi. Sta ble extrarenal pelvis on the left. No intraluminal calculus in the poorly distended bladder. BOWEL: Normal-appearing appendix from cecum. No abnormal small or large bowel dilatation. GENITAL ORGANS: Uterus is surgically absent. Scattered small right-sided pelvic phleboliths are redem onstrated. LYMPH NODES: No greater than 1cm abdominal or pelvic lymph nodes are appreciated. OSSEOUS STRUCTURES: Mild to moderate disc space narrowing at L4-L5 level redemonstrated. OTHER: No significant additional abnormality is seen. IMPRESSION: There are 2 tiny nonobstructing left renal calculi. No hydronephrosis or obstructing uret er calculi seen bilaterally. No acute finding on this noncontrast CT to account for patient's clinica l symptoms.
[2023-09-06 02:47] LABS: Appearance,Urine Cloudy (Clear); Bacteria,Urine Rare /hpf; Bilirubin,Urine Negative (Negative); Blood,Urine Large (Negative); Calcium Oxalate Crystals,Urine Few /hpf; Color,Urine Yellow; Glucose,Urine (UA) Negative (Negative); Ketones,Urine Negative (Negative); Leukocyte Esterase,Urine Negative (Negative); Mucus,Urine Occasional /hpf; Nitrite,Urine Negative (Negative); Protein,Urine Trace (Negative); RBC,Urine >182 /hpf (0-5); Squamous Epithelial Cell,Urine 7 /hpf (0-4); WBC,Urine 4 /hpf (0-5)
[2023-09-06 02:49] LABS: ALT 18 U/L (4-34); AST 25 U/L (14-36); African American GFR (CKD) >90 (>60 ml/min/1.73 sqM); Albumin 4.2 g/dL (3.5-5.0); Alkaline Phosphatase 76 U/L (38-126); Amylase 53 U/L (30-110); Anion Gap 9 mmol/L; Blood Urea Nitrogen 14 mg/dL (7-17); Calcium 9.4 mg/dL (8.4-10.2); Carbon Dioxide 23 mmol/L (22-30); Chloride 107 mmol/L (98-107); Glucose 110 mg/dL (74-99); Lipase 81 U/L (23-300); Non-African American GFR(CKD) >90 (>60 ml/min/1.73 sqM); Potassium 3.5 mmol/L (3.5-5.1); Sodium 139 mmol/L (137-145); Total Bilirubin 0.8 mg/dL (0.2-1.3); Total Protein 6.9 g/dL (6.3-8.2)
[2023-09-06 03:45] VITALS: BP 115/72; PULSE 89
== END 2023-09-06 03:42 | disposition home or self-care (01) ==
LOC: EC 01:27
DX: R10.9 Unspecified abdominal pain (principal); F17.200 Nicotine dependence, unspecified, uncomplicated; Z88.2 Allergy status to sulfonamides; Z88.8 Allergy status to other drugs, medicaments and biological substances; Z88.0 Allergy status to penicillin; Z91.041 Radiographic dye allergy status; Z88.1 Allergy status to other antibiotic agents
CPT/HCPCS: 36415; 80053; 82150; 83690; 85025; 81001; 81025; 74176; 99284; 96374; 96375; 96361; J2405; J1170

== ENCOUNTER 2023-09-14 22:01 | Emergency (ER) | payer OTHER ==
--- NOTE | 2023-09-14 22:16 | ED ---
Recheck HPI - General Chief Complaint: Urogenital Stated Complaint: kidney stones Time Seen by Provider: 09/14/23 22:08 Source: patient, RN notes reviewed, old records reviewed Mode of arrival: ambulatory Limitations: no limitations - History of Present Illness Initial Comments: This is a 48-year-old female to the ER for evaluation today. Patient [place] for evaluation of recurrent flank pain back pain and nausea vomiting. Uncontrolled nausea vomiting for few days now, patient was concerned she may have the flu although symptoms did get better and then again returned tonight. Patient does have no recent fever, and no current active vomiting. Patient does admit to blood in the urine which is a chronic issue for her. Pain is just like prior issues with pain for ER visiting MD Complaint: wound re-check, medication refill request -: days(s) Returns Today for: persistent/worsening pain related to initial visit Symptoms Since Prior Visit: worsening pain Associated Symptoms: none - Related Data Home Medications Medication Instructions Recorded Confirmed oxyCODONE-APAP 10-325MG [Percocet 1 tab PO QID PRN 08/29/17 05/03/23 10-325 mg] PARoxetine HCL [Paxil] 40 mg PO DAILY 03/12/18 05/03/23 PARoxetine [Paxil] 20 mg PO DAILY 06/04/18 05/03/23 Loratadine 10 mg PO DAILY 04/21/20 05/03/23 Dextroamphetamine/Amphetamine 20 mg PO BID 12/07/21 05/03/23 [Dextroamp-Amphetamin 20 mg Tab] Multivitamins, Thera [Multivitamin 1 tab PO DAILY 12/07/21 05/03/23 (formulary)] SUMAtriptan succinate [Imitrex] 100 mg PO DAILY PRN 12/07/21 05/03/23 Atorvastatin [Lipitor] 40 mg PO DAILY 05/03/23 05/03/23 Cholecalciferol [Vitamin D3 (25 25 mcg PO DAILY 05/03/23 05/03/23 Mcg = 1000 Iu)] Cyanocobalamin (Vitamin B-12) 1,000 mcg PO DAILY 05/03/23 05/03/23 [Vitamin B-12] Tirzepatide [Mounjaro] 12.5 mg SQ WE 05/03/23 05/03/23 lisinopriL [Zestril] 10 mg PO DAILY 05/03/23 05/03/23 metFORMIN HCL 1,000 mg PO BID 05/03/23 05/03/23 Previous Rx's Medication Instructions Recorded Ondansetron Odt [Zofran Odt] 4 mg PO Q8HR PRN #20 tab 09/06/22 Allergies Allergy/AdvReac Type Severity Reaction Status Date / Time bupropion HCl Allergy Rash/Hives Verified 09/14/23 22:06 [From Wellbutrin] divalproex sodium Allergy Unknown Verified 09/14/23 22:06 [From Depakote] fentanyl Allergy Swelling Verified 09/14/23 22:06 Iodinated Contrast Media Allergy Anaphylaxis Verified 09/14/23 22:06 [Iodinated Contrast Media - IV Dye] orange juice [[place]] Allergy Rash/Hives Verified 09/14/23 22:06 Penicillins Allergy Rash/Hives/Gi Verified 09/14/23 22:06 Upset Sulfa (Sulfonamide Allergy Rash/Hives Verified 09/14/23 22:06 Antibiotics) sulfamethoxazole Allergy Rash/Hives Verified 09/14/23 22:06 [From Bactrim] trimethoprim [From Bactrim] Allergy Rash/Hives Verified 09/14/23 22:06 Review of Systems ROS Statement: Those systems with pertinent positive or pertinent negative responses have been documented in the HPI. ROS Other: All systems not noted in ROS Statement are negative. 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 History of Any Multi-Drug Resistant Organisms: ESBL Date of last positivie culture/infection: 05/14/17 MDRO Source:: ESBL URINE, Past Surgical History: Bladder Surgery, Section, Cholecystectomy, Hysterectomy, Orthopedic Surgery, Tubal Ligation Additional Past Surgical History / Comment(s): R ovarian cystectomy, laparoscopic surgery for L ovary that had attached to the bowel, D&C, numerous lithotripsies, nephroscopies, cystoscopies and stents to ureters-none in place at this time, L robotic pyeloplasty with post op infection around kidney which then required a picc line/later removed (pt states was not MRSA), L rotator cuff repair, L wrist tendon surgery, colonoscopy. Kidney stone removal. Past Anesthesia/Blood Transfusion Reactions: Family History of Problems w/ Anesthesia Additional Past Anesthesia/Blood Transfusion Reaction / Comment(s): dad-hard time waking up due to enzyme problems in liver Past Psychological History: ADD/ADHD, Anxiety, Bipolar, Depression, PTSD Smoking Status: Current every day smoker Past Alcohol Use History: None Reported Past Drug Use History: None Reported - Past Family History Brother(s) Family Medical History: Cancer Additional Family Medical History / Comment(s): testicular Father Family Medical History: Coronary Artery Disease (CAD), CVA/TIA, Diabetes Mellitus, Renal Disease Additional Family Medical History / Comment(s): GLAUCOMA,NEUROPATHY HAD TRIPLE CABG, at 56yrs from renal disease. Mother Family Medical History: Hyperlipidemia Additional Family Medical History / Comment(s): DDD, HAD 3 vessel CABG AGE 54. General Exam General appearance: alert, in no apparent distress Head exam: Present: atraumatic, normocephalic, normal inspection Eye exam: Present: normal appearance, PERRL, EOMI. Absent: scleral icterus, conjunctival injection, periorbital swelling ENT exam: Present: normal exam, mucous membranes moist Neck exam: Present: normal inspection. Absent: tenderness, meningismus, lymphadenopathy Respiratory exam: Present: normal lung sounds bilaterally. Absent: respiratory distress, wheezes, rales, rhonchi, stridor Cardiovascular Exam: Present: regular rate, normal rhythm, normal heart sounds. Absent: systolic murmur, diastolic murmur, rubs, gallop, clicks GI/Abdominal exam: Present: soft, normal bowel sounds. Absent: distended, tenderness, guarding, rebound, rigid Extremities exam: Present: normal inspection, full ROM, normal capillary refill. Absent: tenderness, pedal edema, joint swelling, calf tenderness Back exam: Present: normal inspection Neurological exam: Present: alert, oriented X3, CN II-XII intact Psychiatric exam: Present: normal affect, normal mood Skin exam: Present: warm, dry, intact, normal color. Absent: rash Course Vital Signs 09/14/23 09/15/23 22:03 01:25 Temperature 98.9 F Pulse Rate 94 69 Respiratory 18 16 Rate Blood Pressure 124/83 102/67 O2 Sat by Pulse 99 95 Oximetry - Reevaluation(s) Reevaluation #1: 09/14/23 23:30 Medical records reviewed Reevaluation #2: 09/14/23 23:30 Patient symptoms improved Reevaluation #3: 09/14/23 23:30 Patient informed of results questions answered Reevaluation #4: Was pt. sent in by a medical professional or institution (STUART Yeager, DIFFUSION OPERATOR, urgent care, hospital, or care home...) When possible be specific @ -no Did you speak to anyone other than the patient for history (EMS, parent, family, police, friend...)? What history was obtained from this source @ -no Did you review nursing and triage notes (agree or disagree)? Why? @ -agree Are old charts reviewed (outside hosp., previous admission, EMS record, old EKG, old radiological studies, urgent care reports/EKG's, care home records)? Report findings @ -yes Differential Diagnosis (chest pain, altered mental status, abdominal pain women, abdominal pain men, vaginal bleeding, weakness, fever, dyspnea, syncope, headache, dizziness, GI bleed, back pain, seizure, CVA, palpatations, mental health, musculoskeletal)? @ -prior EKG interpreted by me (3pts min.). @ -no X-rays interpreted by me (1pt min.). @ -no CT interpreted by me (1pt min.). @ -no U/S interpreted by me (1pt. min.). @ -no What testing was considered but not performed or refused? (CT, X-rays, U/S, labs)? Why? @ -none What meds were considered but not given or refused? Why? @ -none Did you discuss the management of the patient with other professionals (p sachafessionals i.e. STUART Yeager, DIFFUSION OPERATOR, lab, RT, psych nurse, social human services assistants, title officer, teacher, tactical response group officer, shelter case manager)? Give summary @ -no Was smoking cessation discussed for >3mins.? @ -no Was critical care preformed (if so, how long)? @ -no Were there social determinants of health that impacted care today? How? (Homelessness, low income, unemployed, alcoholism, drug addiction, transportation, low edu. Level, literacy, decrease access to med. care, care home, rehab)? @ -none Was there de-escalation of care discussed even if they declined (Discuss DNR or withdrawal of care, Hospice)? DNR status @ -no What co-morbidities impacted this encounter? (DM, HTN, Smoking, COPD, CAD, Cancer, CVA, ARF, Chemo, Hep., AIDS, mental health diagnosis, sleep apnea, morbid obesity)? @ -none Was patient admitted / discharged? Hospital course, mention meds given and route, prescriptions, significant lab abnormalities, going to OR and other pertinent info. @ - 48 female well-known to this ER for kidney stones recurrent kidney stones renal colic and uncontrolled pain with nausea vomiting today. Patient symptoms are improved and she feels good for discharge home Discharge Undiagnosed new problem with uncertain prognosis? @ -no Drug Therapy requiring intensive monitoring for toxicity (Heparin, Nitro, Ins ulin, Cardizem)? @ -no Were any procedures done? @ -no Diagnosis/symptom? @ -Chronic abdominal pain Acute, or chronic chronic abdominal pain chronic, or Acute on Chronic? @ -Acute Uncomplicated (without systemic symptoms) or Complicated (systemic symptoms)? @ -Complicated Side effects of treatment? @ -no Exacerbation, Progression, or Severe Exacerbation? @ -exacerbation Poses a threat to life or bodily function? How? (Chest pain, USA, SC, pneumonia, PE, COPD, DKA, ARF, appy, cholecystitis, CVA, Diverticulitis, Homicidal, Suicidal, threat to staff... and all critical care pts) @ -no Reevaluation #5: Differential Abdominal Pain Women: Appendicitis, Cholecystitis, diverticulosis, ischemic bowel, pancreatitis, hepatitis, UTI, gastroenteritis, AAA, incarcerated hernia, bowel obstruction, constipation, inflammatory bowel, hepatitis, peptic ulcer disease, splenic infarction, perforated viscus, vulvitis, ovarian torsion, PID, kidney stone, placenta abruption, this is not meant to be an all-inclusive list Medical Decision Making - Medical Decision Making 48 female well-known to this ER for kidney stones recurrent kidney stones renal colic and uncontrolled pain with nausea vomiting today. Patient symptoms are improved and she feels good for discharge home - Lab Data Result diagrams: 09/14/23 22:23 09/14/23 22:23 Lab Results 09/14/23 09/14/23 09/14/23 Range/Units 22:23 22:23 22:23 WBC 11.3 H (3.8-10.6) k/uL RBC 4.55 (3.80-5.40) m/uL Hgb 14.0 (11.4-16.0) gm/dL Hct 39.9 (34.0-46.0) % MCV 87.8 (80.0-100.0) fL MCH 30.9 (25.0-35.0) pg MCHC 35.1 (31.0-37.0) g/dL RDW 12.7 (11.5-15.5) % Plt Count 270 (150-450) k/uL MPV 7.6 Neutrophils % 42 % Lymphocytes % 49 % Monocytes % 4 % Eosinophils % 3 % Basophils % 1 % Neutrophils # 4.7 (1.3-7.7) k/uL Lymphocytes # 5.5 H (1.0-4.8) k/uL Monocytes # 0.5 (0-1.0) k/uL Eosinophils # 0.3 (0-0.7) k/uL Basophils # 0.1 (0-0.2) k/uL Manual Slide Review Performed RBC Morphology Normal Sodium 138 (137-145) mmol/L Potassium 3.5 (3.5-5.1) mmol/L Chloride 108 H (98-107) mmol/L Carbon Dioxide 22 (22-30) mmol/L Anion Gap 8 mmol/L BUN 13 (7-17) mg/dL Creatinine 0.56 (0.52-1.04) mg/dL Est GFR (CKD-EPI)AfAm >90 (>60 ml/min/1.73 sqM) Est GFR (CKD-EPI)NonAf >90 (>60 ml/min/1.73 sqM) Glucose 102 H (74-99) mg/dL Calcium 9.2 (8.4-10.2) mg/dL Phosphorus 4.4 (2.5-4.5) mg/dL Magnesium 1.4 L (1.6-2.3) mg/dL Total Bilirubin 0.8 (0.2-1.3) mg/dL AST 28 (14-36) U/L ALT 21 (4-34) U/L Alkaline Phosphatase 68 (38-126) U/L Total Protein 6.6 (6.3-8.2) g/dL Albumin 4.1 (3.5-5.0) g/dL Urine Color Light Red Urine Appearance Clear (Clear) Urine pH 6.0 (5.0-8.0) Ur Specific [place] 1.020 (1.001-1.035) Urine Protein Trace H (Negative) Urine Glucose (UA) Negative (Negative) Urine Ketones Negative (Negative) Urine Blood Moderate H (Negative) Urine Nitrite Negative (Negative) Urine Bilirubin Negative (Negative) Urine Urobilinogen <2.0 (<2.0) mg/dL Ur Leukocyte Esterase Negative (Negative) Urine RBC >182 H (0-5) /hpf Urine WBC 3 (0-5) /hpf Ur Squamous Epith Cells 6 H (0-4) /hpf Urine Mucus Rare H (None) /hpf Disposition Clinical Impression: Abdominal pain, Left flank pain, chronic, Renal colic on left side Disposition: HOME SELF-CARE Condition: Good Instructions (If sedation given, give patient instructions): Abdominal Pain (ED) Is patient prescribed a controlled substance at d/c from ED?: No Referrals: Rajiv Sexton MD [Primary Care Provider] - 1-2 days Time of Disposition: 23:30
[2023-09-14 22:46] LABS: Appearance,Urine Clear (Clear); Basophils # (A) 0.1 k/uL (0-0.2); Basophils % (A) 1 %; Bilirubin,Urine Negative (Negative); Blood,Urine Moderate (Negative); Color,Urine Light Red; Eosinophils # (A) 0.3 k/uL (0-0.7); Eosinophils % (A) 3 %; Glucose,Urine (UA) Negative (Negative); HCT 39.9 % (34.0-46.0); Ketones,Urine Negative (Negative); Leukocyte Esterase,Urine Negative (Negative); Lymphocytes # (A) 5.5 k/uL (1.0-4.8); Lymphocytes % (A) 49 %; MCH 30.9 pg (25.0-35.0); MCHC 35.1 g/dL (31.0-37.0); MCV 87.8 fL (80.0-100.0); Mean Platelet Volume 7.6; Monocytes # (A) 0.5 k/uL (0-1.0); Monocytes % (A) 4 %; Mucus,Urine Rare /hpf; Neutrophils # (A) 4.7 k/uL (1.3-7.7); Neutrophils % (A) 42 %; Nitrite,Urine Negative (Negative); Platelet Count 270 k/uL (150-450); Protein,Urine Trace (Negative); RBC 4.55 m/uL (3.80-5.40); RBC,Urine >182 /hpf (0-5); RDW 12.7 % (11.5-15.5); Squamous Epithelial Cell,Urine 6 /hpf (0-4); Urobilinogen,Urine <2.0 mg/dL (<2.0); WBC 11.3 k/uL (3.8-10.6); WBC,Urine 3 /hpf (0-5)
[2023-09-14 22:51] VITALS: TEMP 98.9
[2023-09-14 22:56] LABS: ALT 21 U/L (4-34); AST 28 U/L (14-36); African American GFR (CKD) >90 (>60 ml/min/1.73 sqM); Albumin 4.1 g/dL (3.5-5.0); Alkaline Phosphatase 68 U/L (38-126); Anion Gap 8 mmol/L; Blood Urea Nitrogen 13 mg/dL (7-17); Calcium 9.2 mg/dL (8.4-10.2); Carbon Dioxide 22 mmol/L (22-30); Chloride 108 mmol/L (98-107); Glucose 102 mg/dL (74-99); Magnesium 1.4 mg/dL (1.6-2.3); Non-African American GFR(CKD) >90 (>60 ml/min/1.73 sqM); Phosphorus 4.4 mg/dL (2.5-4.5); Potassium 3.5 mmol/L (3.5-5.1); Sodium 138 mmol/L (137-145); Total Bilirubin 0.8 mg/dL (0.2-1.3); Total Protein 6.6 g/dL (6.3-8.2)
[2023-09-14] MEDS: SODIUM CHLORIDE 0.9% 1,000 ML IV STA (23:13)
[2023-09-14] MEDS: SODIUM CHLORIDE 0.9% 500 ML 500 ML IV STA (23:17)
[2023-09-14] MEDS: HYDROmorphone 1 MG/ML 1 ML SYRINGE IVP STA (23:23)
[2023-09-14] MEDS: diphenhydrAMINE 50 MG/ML 1 ML VIAL IVP STA (23:25)
[2023-09-14] MEDS: droPERidol 5 MG/2 ML VIAL IVP ONE (23:29)
[2023-09-14 23:42] LABS: RBC Morphology Normal
[2023-09-15 01:40] VITALS: BP 102/67; PULSE 69; RESP 16
== END 2023-09-15 01:31 | disposition home or self-care (01) ==
LOC: EC 22:01
DX: G89.29 Other chronic pain (principal); N23 Unspecified renal colic; F17.200 Nicotine dependence, unspecified, uncomplicated; Z88.2 Allergy status to sulfonamides; Z88.8 Allergy status to other drugs, medicaments and biological substances; Z91.041 Radiographic dye allergy status; Z91.018 Allergy to other foods; Z88.0 Allergy status to penicillin; Z88.1 Allergy status to other antibiotic agents; Z87.442 Personal history of urinary calculi
CPT/HCPCS: 99284 ×2; 96374 ×2; 96375 ×3; 96361 ×2; 36415; 80053; 83735; 84100; 85025; 81001; J1200; J1170; J1790

== ENCOUNTER 2023-09-27 00:10 | Emergency (ER) | payer OTHER ==
[2023-09-27] MEDS: HYDROmorphone 1 MG/ML 1 ML SYRINGE IVP STA (00:57)
[2023-09-27] MEDS: SODIUM CHLORIDE 0.9% 1,000 ML IV STA (00:57)
[2023-09-27] MEDS: ONDANSETRON 4 MG/2 ML VIAL IVP STA (01:07)
[2023-09-27 01:24] LABS: ALT 19 U/L (4-34); AST 24 U/L (14-36); African American GFR (CKD) >90 (>60 ml/min/1.73 sqM); Albumin 4.5 g/dL (3.5-5.0); Alkaline Phosphatase 86 U/L (38-126); Amylase 67 U/L (30-110); Anion Gap 11 mmol/L; Blood Urea Nitrogen 14 mg/dL (7-17); Carbon Dioxide 21 mmol/L (22-30); Chloride 104 mmol/L (98-107); Glucose 143 mg/dL (74-99); Lipase 151 U/L (23-300); Non-African American GFR(CKD) >90 (>60 ml/min/1.73 sqM); Potassium 3.8 mmol/L (3.5-5.1); Sodium 136 mmol/L (137-145); Total Bilirubin 1.1 mg/dL (0.2-1.3); Total Protein 7.4 g/dL (6.3-8.2)
[2023-09-27 01:38] LABS: Basophils # (A) 0.1 k/uL (0-0.2); Basophils % (A) 1 %; Eosinophils # (A) 0.2 k/uL (0-0.7); Eosinophils % (A) 2 %; HGB 15.5 gm/dL (11.4-16.0); Lymphocytes # (A) 5.4 k/uL (1.0-4.8); Lymphocytes % (A) 42 %; MCH 30.5 pg (25.0-35.0); MCHC 34.5 g/dL (31.0-37.0); MCV 88.3 fL (80.0-100.0); Mean Platelet Volume 7.9; Monocytes # (A) 0.6 k/uL (0-1.0); Monocytes % (A) 5 %; Neutrophils # (A) 6.3 k/uL (1.3-7.7); Neutrophils % (A) 49 %; Platelet Count 334 k/uL (150-450); RDW 12.8 % (11.5-15.5)
[2023-09-27 02:21] LABS: Large Platelets Present; Ovalocytes Present
[2023-09-27 02:30] LABS: Amorphous Sediment,Urine Rare /hpf; Appearance,Urine Cloudy (Clear); Bacteria,Urine Occasional /hpf; Bilirubin,Urine Negative (Negative); Blood,Urine Large (Negative); Color,Urine Light Red; Glucose,Urine (UA) Negative (Negative); Ketones,Urine Negative (Negative); Leukocyte Esterase,Urine Trace (Negative); Mucus,Urine Rare /hpf; Nitrite,Urine Negative (Negative); PH, Urine 6.5 (5.0-8.0); Protein,Urine 1+ (Negative); RBC,Urine >182 /hpf (0-5); Specific Gravity,Urine 1.023 (1.001-1.035); Squamous Epithelial Cell,Urine 9 /hpf (0-4); WBC,Urine 18 /hpf (0-5)
--- NOTE | 2023-09-27 02:40 | ED ---
Abdominal Pain HPI - General Chief Complaint: Abdominal Pain Stated Complaint: left sided abd pain fever NVD Time Seen by Provider: 09/27/23 00:34 Source: patient Mode of arrival: ambulatory Limitations: no limitations - History of Present Illness Initial Comments: 48-year-old female well-known to the department presenting to the ED with complaints of flank pain. Patient reports that this is a recurrent issue and has follow-up with urology this following Sunday. Patient states that she was worried she may be starting to become dehydrated and would like to have some IV fluids. In addition to history of recurrent flank pain, patient also notes hem aturia as well with her symptoms. States onset of recurrence of her symptoms 4 days ago. No fever or chills. No chest pains or shortness of breath. No other complaints at this time. - Related Data Home Medications Medication Instructions Recorded Confirmed oxyCODONE-APAP 10-325MG [Percocet 1 tab PO QID PRN 08/29/17 05/03/23 10-325 mg] PARoxetine HCL [Paxil] 40 mg PO DAILY 03/12/18 05/03/23 PARoxetine [Paxil] 20 mg PO DAILY 06/04/18 05/03/23 Loratadine 10 mg PO DAILY 04/21/20 05/03/23 Dextroamphetamine/Amphetamine 20 mg PO BID 12/07/21 05/03/23 [Dextroamp-Amphetamin 20 mg Tab] Multivitamins, Thera [Multivitamin 1 tab PO DAILY 12/07/21 05/03/23 (formulary)] SUMAtriptan succinate [Imitrex] 100 mg PO DAILY PRN 12/07/21 05/03/23 Atorvastatin [Lipitor] 40 mg PO DAILY 05/03/23 05/03/23 Cholecalciferol [Vitamin D3 (25 25 mcg PO DAILY 05/03/23 05/03/23 Mcg = 1000 Iu)] Cyanocobalamin (Vitamin B-12) 1,000 mcg PO DAILY 05/03/23 05/03/23 [Vitamin B-12] Tirzepatide [Mounjaro] 12.5 mg SQ WE 05/03/23 05/03/23 lisinopriL [Zestril] 10 mg PO DAILY 05/03/23 05/03/23 metFORMIN HCL 1,000 mg PO BID 05/03/23 05/03/23 Previous Rx's Medication Instructions Recorded Ondansetron Odt [Zofran Odt] 4 mg PO Q8HR PRN #20 tab 09/06/22 Cephalexin [Keflex] 500 mg PO Q6HR 7 Days #28 cap 09/27/23 Allergies Allergy/AdvReac Type Severity Reaction Status Date / Time bupropion HCl Allergy Rash/Hives Verified 09/27/23 00:20 [From Wellbutrin] divalproex sodium Allergy Unknown Verified 09/27/23 00:20 [From Depakote] fentanyl Allergy Swelling Verified 09/27/23 00:20 Iodinated Contrast Media Allergy Anaphylaxis Verified 09/27/23 00:20 [Iodinated Contrast Media - IV Dye] orange juice [[place]] Allergy Rash/Hives Verified 09/27/23 00:20 Penicillins Allergy Rash/Hives/Gi Verified 09/27/23 00:20 Upset Sulfa (Sulfonamide Allergy Rash/Hives Verified 09/27/23 00:20 Antibiotics) sulfamethoxazole Allergy Rash/Hives Verified 09/27/23 00:20 [From Bactrim] trimethoprim [From Bactrim] Allergy Rash/Hives Verified 09/27/23 00:20 Review of Systems ROS Statement: Those systems with pertinent positive or pertinent negative responses have been documented in the HPI. ROS Other: All systems not noted in ROS Statement are negative. 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 History of Any Multi-Drug Resistant Organisms: ESBL Date of last positivie culture/infection: 05/14/17 MDRO Source:: ESBL URINE, Past Surgical History: Bladder Surgery, Section, Cholecystectomy, Hysterectomy, Orthopedic Surgery, Tubal Ligation Additional Past Surgical History / Comment(s): R ovarian cystectomy, laparoscopic surgery for L ovary that had attached to the bowel, D&C, numerous lithotripsies, nephroscopies, cystoscopies and stents to ureters-none in place at this time, L robotic pyeloplasty with post op infection around kidney which then required a picc line/later removed (pt states was not MRSA), L rotator cuff repair, L wrist tendon surgery, colonoscopy. Kidney stone removal. Past Anesthesia/Blood Transfusion Reactions: Family History of Problems w/ Anesthesia Additional Past Anesthesia/Blood Transfusion Reaction / Comment(s): dad-hard time waking up due to enzyme problems in liver Past Psychological History: ADD/ADHD, Anxiety, Bipolar, Depression, PTSD Smoking Status: Current every day smoker Past Alcohol Use History: None Reported Past Drug Use History: None Reported - Past Family History Brother(s) Family Medical History: Cancer Additional Family Medical History / Comment(s): testicular Father Family Medical History: Coronary Artery Disease (CAD), CVA/TIA, Diabetes Mellitus, Renal Disease Additional Family Medical History / Comment(s): GLAUCOMA,NEUROPATHY HAD TRIPLE CABG, at 56yrs from renal disease. Mother Family Medical History: Hyperlipidemia Additional Family Medical History / Comment(s): DDD, HAD 3 vessel CABG AGE 54. General Exam Limitations: no limitations General appearance: alert, in no apparent distress Eye exam: Present: normal appearance Neck exam: Present: normal inspection Respiratory exam: Present: normal lung sounds bilaterally GI/Abdominal exam: Present: soft, normal bowel sounds, other (No significant CVA tenderness to percussion bilaterally.). Absent: distended, tenderness, guarding, rebound, rigid Neurological exam: Present: alert, oriented X3 Skin exam: Present: warm, dry Course Vital Signs 09/27/23 09/27/23 09/27/23 00:18 01:19 02:00 Temperature 98 F Pulse Rate 112 H 96 91 Respiratory 20 18 16 Rate Blood Pressure 113/79 118/85 110/66 O2 Sat by Pulse 99 98 100 Oximetry 09/27/23 02:40 Temperature 97.9 F Pulse Rate 86 Respiratory 16 Rate Blood Pressure 104/68 O2 Sat by Pulse 100 Oximetry Medical Decision Making - Medical Decision Making Was pt. sent in by a medical professional or institution (, PA, DECONTAMINATION TECHNICIAN, urgent care, hospital, or group home...) When possible be specific @ -No Did you speak to anyone other than the patient for history (EMS, parent, family, police, friend...)? What history was obtained from this source @ -No Did you review nursing and triage notes (agree or disagree)? Why? @ -I reviewed and agree with nursing and triage notes Were old charts reviewed (outside hosp., previous admission, EMS record, old EKG, old radiological studies, urgent care reports/EKG's, group home records)? Report findings @ -No old charts were reviewed Differential Diagnosis (chest pain, altered mental status, abdominal pain women, abdominal pain men, vaginal bleeding, weakness, fever, dyspnea, syncope, headache, dizziness, GI bleed, back pain, seizure, CVA, palpatations, mental health, musculoskeletal)? @ -Differential Abdominal Pain Women: Appendicitis, Cholecystitis, diverticulosis, ischemic bowel, pancreatitis, hepatitis, UTI, gastroenteritis, AAA, incarcerated hernia, bowel obstruction, constipation, inflammatory bowel, hepatitis, peptic ulcer disease, splenic infarction, perforated viscus, vulvitis, ovarian torsion, PID, kidney stone, placenta abruption, this is not meant to be an all-inclusive list EKG interpreted by me (3pts min.). @ -None X-rays interpreted by me (1pt min.). @ -None done CT interpreted by me (1pt min.). @ -None done U/S interpreted by me (1pt. min.). @ -None done What testing was considered but not performed or refused? (CT, X-rays, U/S, labs)? Why? @ -CT abdomen pelvis was considered however at this time, patient reports pain is consistent with history of prior and with history of multiple CT scans in the past patient deferred CT scan today. What meds were considered but not given or refused? Why? @ -None Did you discuss the management of the patient with other professionals (professionals i.e. , PA, DECONTAMINATION TECHNICIAN, lab, RT, psych nurse, social service assistant, tube bending machine operator, teacher, president and chief commercial officer, case coordinator)? Give summary @ -No Was smoking cessation discussed for >3mins.? @ -No Was critical care preformed (if so, how long)? @ -No Were there social determinants of health that impacted care today? How? (Homelessness, low income, unemployed, alcoholism, drug addiction, transportation, low edu. Level, literacy, decrease access to med. care, detention, rehab)? @ -No Was there de-escalation of care discussed even if they declined (Discuss DNR or withdrawal of care, Hospice)? DNR status @ -No What co-morbidities impacted this encounter? (DM, HTN, Smoking, COPD, CAD, Cancer, CVA, ARF, Chemo, Hep., AIDS, mental health diagnosis, sleep apnea, morbid obesity)? @ -None Was patient admitted / discharged? Hospital course, mention meds given and route, prescriptions, significant lab abnormalities, going to OR and other pertinent info. @ -Discharge 48-year-old female well-known to this department secondary to recurrent flank pain presenting to the ED with complaints of flank pain with associated hematuria. Patient reports pain today is consistent to prior and reports that she would like IV fluids so she does not get dehydrated. Patient provided analgesia and IV fluids here and reports feeling significantly improved. Patient deferred CT scan at this time. Laboratory studies reviewed. CBC CMP largely unremarkable. There was some evidence of infection on UA and therefore patient provided prescription for Keflex which she reports she has taken in the past without difficulties. Advise close follow-up with her urologist as scheduled. Discharged home in stable condition. Discussed return precautions with the patient who verbalized agreement. Undiagnosed new problem with uncertain prognosis? @ -No Drug Therapy requiring intensive monitoring for toxicity (Heparin, Nitro, Insulin, Cardizem)? @ -No Were any procedures done? @ -No Diagnosis/symptom? @ -Flank pain Acute, or Chronic, or Acute on Chronic? @ -Acute on chronic Uncomplicated (without systemic symptoms) or Complicated (systemic symptoms)? @ -Uncomplicated Side effects of treatment? @ -No Exacerbation, Progression, or Severe Exacerbation? @ -No Poses a threat to life or bodily function? How? (Chest pain, [place], [place], pneumonia, PE, COPD, DKA, ARF, appy, cholecystitis, CVA, Diverticulitis, Homicidal, Suicidal, threat to staff... and all critical care pts) @ -No - Lab Data Result diagrams: 09/27/23 00:48 09/27/23 00:48 Lab Results 09/27/23 09/27/23 09/27/23 Range/Units 00:48 00:48 00:48 WBC 13.0 H (3.8-10.6) k/uL RBC 5.10 (3.80-5.40) m/uL Hgb 15.5 (11.4-16.0) gm/dL Hct 45.0 (34.0-46.0) % MCV 88.3 (80.0-100.0) fL MCH 30.5 (25.0-35.0) pg MCHC 34.5 (31.0-37.0) g/dL RDW 12.8 (11.5-15.5) % Plt Count 334 (150-450) k/uL MPV 7.9 Neutrophils % 49 % Lymphocytes % 42 % Monocytes % 5 % Eosinophils % 2 % Basophils % 1 % Neutrophils # 6.3 (1.3-7.7) k/uL Lymphocytes # 5.4 H (1.0-4.8) k/uL Monocytes # 0.6 (0-1.0) k/uL Eosinophils # 0.2 (0-0.7) k/uL Basophils # 0.1 (0-0.2) k/uL Manual Slide Review Performed Large Platelets Present Ovalocytes Present Sodium 136 L (137-145) mmol/L Potassium 3.8 (3.5-5.1) mmol/L Chloride 104 (98-107) mmol/L Carbon Dioxide 21 L (22-30) mmol/L Anion Gap 11 mmol/L BUN 14 (7-17) mg/dL Creatinine 0.74 (0.52-1.04) mg/dL Est GFR (CKD-EPI)AfAm >90 (>60 ml/min/1.73 sqM) Est GFR (CKD-EPI)NonAf >90 (>60 ml/min/1.73 sqM) Glucose 143 H (74-99) mg/dL Calcium 10.0 (8.4-10.2) mg/dL Total Bilirubin 1.1 (0.2-1.3) mg/dL AST 24 (14-36) U/L ALT 19 (4-34) U/L Alkaline Phosphatase 86 (38-126) U/L Total Protein 7.4 (6.3-8.2) g/dL Albumin 4.5 (3.5-5.0) g/dL Amylase 67 (30-110) U/L Lipase 151 (23-300) U/L Urine Color Light Red Urine Appearance Cloudy H (Clear) Urine pH 6.5 (5.0-8.0) Ur Specific [place] 1.023 (1.001-1.035) Urine Protein 1+ H (Negative) Urine Glucose (UA) Negative (Negative) Urine Ketones Negative (Negative) Urine Blood Large H (Negative) Urine Nitrite Negative (Negative) Urine Bilirubin Negative (Negative) Urine Urobilinogen 2.0 (<2.0) mg/dL Ur Leukocyte Esterase Trace H (Negative) Urine RBC >182 H (0-5) /hpf Urine WBC 18 H (0-5) /hpf Ur Squamous Epith Cells 9 H (0-4) /hpf Amorphous Sediment Rare H (None) /hpf Urine Bacteria Occasional H (None) /hpf Urine Mucus Rare H (None) /hpf Disposition Clinical Impression: Flank pain Disposition: HOME SELF-CARE Condition: Good Additional Instructions: Please return to the Emergency Department if symptoms worsen or any other concerns. Please follow-up with your PCP. Please follow-up with urology as scheduled. Prescriptions: Cephalexin [Keflex] 500 mg PO Q6HR 7 Days #28 cap Is patient prescribed a controlled substance at d/c from ED?: No Referrals: Rajiv Sexton MD [Primary Care Provider] - 1-2 days Time of Disposition: 02:43
[2023-09-27 03:11] VITALS: BP 104/68; PULSE 86; RESP 16; TEMP 97.9
== END 2023-09-27 02:51 | disposition home or self-care (01) ==
LOC: EC 00:10
DX: R10.9 Unspecified abdominal pain (principal); F17.200 Nicotine dependence, unspecified, uncomplicated; Z88.0 Allergy status to penicillin; Z88.2 Allergy status to sulfonamides; Z88.1 Allergy status to other antibiotic agents; Z91.041 Radiographic dye allergy status; Z88.8 Allergy status to other drugs, medicaments and biological substances
CPT/HCPCS: 36415; 80053; 82150; 83690; 85025; 81001; 87086; 99284; 96374; 96375; 96361 ×2; J2405; J1170

== ENCOUNTER 2023-10-02 21:48 | Emergency (ER) | payer OTHER ==
--- NOTE | 2023-10-02 22:31 | ED ---
General Adult HPI - General Chief complaint: Abdominal Pain Stated complaint: Abd pain Time Seen by Provider: 10/02/23 22:06 Source: patient, RN notes reviewed, old records reviewed Mode of arrival: ambulatory Limitations: no limitations - History of Present Illness Initial comments: 48-year-old female with chronic flank pain presenting with left-sided flank pain. Patient has ongoing evaluation and treatment with urology regarding her chronic flank pain. She reports persistent hematuria which is baseline. No dysuria. She has had nausea and vomiting. She states she had CAT scan performed that showed punctate stones in the left kidney with no hydronephrosis. This is confirmed with recent ER visit. - Related Data Home Medications Medication Instructions Recorded Confirmed oxyCODONE-APAP 10-325MG [Percocet 1 tab PO QID PRN 08/29/17 05/03/23 10-325 mg] PARoxetine HCL [Paxil] 40 mg PO DAILY 03/12/18 05/03/23 PARoxetine [Paxil] 20 mg PO DAILY 06/04/18 05/03/23 Loratadine 10 mg PO DAILY 04/21/20 05/03/23 Dextroamphetamine/Amphetamine 20 mg PO BID 12/07/21 05/03/23 [Dextroamp-Amphetamin 20 mg Tab] Multivitamins, Thera [Multivitamin 1 tab PO DAILY 12/07/21 05/03/23 (formulary)] SUMAtriptan succinate [Imitrex] 100 mg PO DAILY PRN 12/07/21 05/03/23 Atorvastatin [Lipitor] 40 mg PO DAILY 05/03/23 05/03/23 Cholecalciferol [Vitamin D3 (25 25 mcg PO DAILY 05/03/23 05/03/23 Mcg = 1000 Iu)] Cyanocobalamin (Vitamin B-12) 1,000 mcg PO DAILY 05/03/23 05/03/23 [Vitamin B-12] Tirzepatide [Mounjaro] 12.5 mg SQ WE 05/03/23 05/03/23 lisinopriL [Zestril] 10 mg PO DAILY 05/03/23 05/03/23 metFORMIN HCL 1,000 mg PO BID 05/03/23 05/03/23 Previous Rx's Medication Instructions Recorded Ondansetron Odt [Zofran Odt] 4 mg PO Q8HR PRN #20 tab 09/06/22 Cephalexin [Keflex] 500 mg PO Q6HR 7 Days #28 cap 09/27/23 Fluconazole 150 mg PO DIRECTED #2 tab 09/27/23 Allergies Allergy/AdvReac Type Severity Reaction Status Date / Time bupropion HCl Allergy Rash/Hives Verified 10/02/23 22:05 [From Wellbutrin] divalproex sodium Allergy Unknown Verified 10/02/23 22:05 [From Depakote] fentanyl Allergy Swelling Verified 10/02/23 22:05 Iodinated Contrast Media Allergy Anaphylaxis Verified 10/02/23 22:05 [Iodinated Contrast Media - IV Dye] orange juice [[place]] Allergy Rash/Hives Verified 10/02/23 22:05 Penicillins Allergy Rash/Hives/Gi Verified 10/02/23 22:05 Upset Sulfa (Sulfonamide Allergy Rash/Hives Verified 10/02/23 22:05 Antibiotics) sulfamethoxazole Allergy Rash/Hives Verified 10/02/23 22:05 [From Bactrim] trimethoprim [From Bactrim] Allergy Rash/Hives Verified 10/02/23 22:05 Review of Systems ROS Statement: Those systems with pertinent positive or pertinent negative responses have been documented in the HPI. ROS Other: All systems not noted in ROS Statement are negative. 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 History of Any Multi-Drug Resistant Organisms: ESBL Date of last positivie culture/infection: 05/14/17 MDRO Source:: ESBL URINE, Past Surgical History: Bladder Surgery, Section, Cholecystectomy, Hysterectomy, Orthopedic Surgery, Tubal Ligation Additional Past Surgical History / Comment(s): R ovarian cystectomy, laparoscopic surgery for L ovary that had attached to the bowel, D&C, numerous lithotripsies, nephroscopies, cystoscopies and stents to ureters-none in place at this time, L robotic pyeloplasty with post op infection around kidney which then required a picc line/later removed (pt states was not MRSA), L rotator cuff repair, L wrist tendon surgery, colonoscopy. Kidney stone removal. Past Anesthesia/Blood Transfusion Reactions: Family History of Problems w/ Anesthesia Additional Past Anesthesia/Blood Transfusion Reaction / Comment(s): dad-hard time waking up due to enzyme problems in liver Past Psychological History: ADD/ADHD, Anxiety, Bipolar, Depression, PTSD Smoking Status: Current every day smoker Past Alcohol Use History: None Reported Past Drug Use History: None Reported - Past Family History Brother(s) Family Medical History: Cancer Additional Family Medical History / Comment(s): testicular Father Family Medical History: Coronary Artery Disease (CAD), CVA/TIA, Diabetes Mellitus, Renal Disease Additional Family Medical History / Comment(s): GLAUCOMA,NEUROPATHY HAD TRIPLE CABG, at 56yrs from renal disease. Mother Family Medical History: Hyperlipidemia Additional Family Medical History / Comment(s): DDD, HAD 3 vessel CABG AGE 54. General Exam Limitations: no limitations General appearance: alert, in no apparent distress Head exam: Present: atraumatic, normocephalic Eye exam: Present: normal appearance, PERRL ENT exam: Present: mucous membranes moist Neck exam: Present: normal inspection. Absent: tenderness, meningismus Respiratory exam: Present: normal lung sounds bilaterally. Absent: respiratory distress, wheezes Cardiovascular Exam: Present: regular rate, normal rhythm GI/Abdominal exam: Present: soft. Absent: distended, tenderness, guarding Extremities exam: Present: normal inspection Neurological exam: Present: alert, oriented X3, CN II-XII intact. Absent: motor sensory deficit Psychiatric exam: Present: normal affect, normal mood Skin exam: Present: warm, dry, intact. Absent: cyanosis, diaphoretic Course Vital Signs 10/02/23 22:03 Temperature 97.4 F L Pulse Rate 107 H Respiratory 20 Rate Blood Pressure 126/88 O2 Sat by Pulse 99 Oximetry Medical Decision Making - Medical Decision Making Was pt. sent in by a medical professional or institution (, PA, PARACHUTE OFFICER, urgent care, hospital, or group home...) When possible be specific @ -No Did you speak to anyone other than the patient for history (EMS, parent, family, police, friend...)? What history was obtained from this source @ -No Did you review nursing and triage notes (agree or disagree)? Why? @ -I reviewed and agree with nursing and triage notes Were old charts reviewed (outside hosp., previous admission, EMS record, old EKG, old radiological studies, urgent care reports/EKG's, group home records)? Report findings @ -No old charts were reviewed Differential Diagnosis (chest pain, altered mental status, abdominal pain women, abdominal pain men, vaginal bleeding, weakness, fever, dyspnea, syncope, headache, dizziness, GI bleed, back pain, seizure, CVA, palpatations, mental health, musculoskeletal)? @ -Differential Abdominal Pain Women: Appendicitis, Cholecystitis, diverticulosis, ischemic bowel, pancreatitis, hepatitis, UTI, gastroenteritis, AAA, incarcerated hernia, bowel obstruction, constipation, inflammatory bowel, hepatitis, peptic ulcer disease, splenic infarction, perforated viscus, vulvitis, ovarian torsion, PID, kidney stone, placenta abruption, this is not meant to be an all-inclusive list EKG interpreted by me (3pts min.). @ -As above X-rays interpreted by me (1pt min.). @ -None done CT interpreted by me (1pt min.). @ -None done U/S interpreted by me (1pt. min.). @ -None done What testing was considered but not performed or refused? (CT, X-rays, U/S, labs)? Why? @ -None What meds were considered but not given or refused? Why? @ -None Did you discuss the management of the patient with other professionals (professionals i.e. , PA, PARACHUTE OFFICER, lab, RT, psych nurse, social sciences department chair, psychiatric lpn, teacher, botanical technical officer, rn case management)? Give summary @ -No Was smoking cessation discussed for >3mins.? @ -No Was critical care preformed (if so, how long)? @ -No Were there social determinants of health that impacted care today? How? (Homelessness, low income, unemployed, alcoholism, drug addiction, transportation, low edu. Level, literacy, decrease access to med. care, residential, rehab)? @ -No Was there de-escalation of care discussed even if they declined (Discuss DNR or withdrawal of care, Hospice)? DNR status @ -No What co-morbidities impacted this encounter? (DM, HTN, Smoking, COPD, CAD, Cancer, CVA, ARF, Chemo, Hep., AIDS, mental health diagnosis, sleep apnea, morbid obesity)? @ -None Was patient admitted / discharged? Hospital course, mention meds given and route, prescriptions, significant lab abnormalities, going to OR and other pertinent info. @ -48-year-old female with acute on chronic left flank pain. Patient well- appearing, vital signs are stable. Patient had both laboratory testing and CT imaging performed on recent ER visit. Patient does have good follow-up with urology, will continue to monitor symptoms and return to the emergency department as needed. Undiagnosed new problem with uncertain prognosis? @ -No Drug Therapy requiring intensive monitoring for toxicity (Heparin, Nitro, Insulin, Cardizem)? @ -No Were any procedures done? @ -No Diagnosis/symptom? @Chronic left flank pain Acute, or Chronic, or Acute on Chronic? @ -Acute on chronic Uncomplicated (without systemic symptoms) or Complicated (systemic symptoms)? @ -Default Side effects of treatment? @ -No Exacerbation, Progression, or Severe Exacerbation? @ -No Poses a threat to life or bodily function? How? (Chest pain, [place], [place], pneumonia, PE, COPD, DKA, ARF, appy, cholecystitis, CVA, Diverticulitis, Homicidal, Suicidal, threat to staff... and all critical care pts) @ -No - Lab Data Lab Results 10/02/23 Range/Units 22:13 Urine Color Yellow Urine Appearance Clear (Clear) Urine pH 5.5 (5.0-8.0) Ur Specific [place] 1.021 (1.001-1.035) Urine Protein Trace H (Negative) Urine Glucose (UA) Negative (Negative) Urine Ketones Negative (Negative) Urine Blood Large H (Negative) Urine Nitrite Negative (Negative) Urine Bilirubin Negative (Negative) Urine Urobilinogen <2.0 (<2.0) mg/dL Ur Leukocyte Esterase Negative (Negative) Urine RBC >182 H (0-5) /hpf Urine WBC 6 H (0-5) /hpf Ur Squamous Epith Cells 1 (0-4) /hpf Urine Bacteria Rare H (None) /hpf Urine Mucus Rare H (None) /hpf Urine Yeast ([place]) Moderate H (None) /hpf Disposition Clinical Impression: Left flank pain, chronic Disposition: HOME SELF-CARE Condition: Fair Instructions (If sedation given, give patient instructions): Flank Pain (ED) Is patient prescribed a controlled substance at d/c from ED?: No Referrals: Rajiv Sexton MD [Primary Care Provider] - 1-2 days Time of Disposition: 23:00
[2023-10-02] MEDS: MORPHINE SULFATE 4 MG/ML SYRINGE IVP STA (22:43)
[2023-10-02] MEDS: SODIUM CHLORIDE 0.9% 1,000 ML IV ONE (22:43)
[2023-10-03 00:03] LABS: Appearance,Urine Clear (Clear); Bacteria,Urine Rare /hpf; Bilirubin,Urine Negative (Negative); Blood,Urine Large (Negative); Budding Yeast,Urine Moderate /hpf; Color,Urine Yellow; Glucose,Urine (UA) Negative (Negative); Ketones,Urine Negative (Negative); Leukocyte Esterase,Urine Negative (Negative); Mucus,Urine Rare /hpf; Nitrite,Urine Negative (Negative); PH, Urine 5.5 (5.0-8.0); Protein,Urine Trace (Negative); RBC,Urine >182 /hpf (0-5); Specific Gravity,Urine 1.021 (1.001-1.035); Squamous Epithelial Cell,Urine 1 /hpf (0-4); Urobilinogen,Urine <2.0 mg/dL (<2.0); WBC,Urine 6 /hpf (0-5)
[2023-10-03 01:01] VITALS: BP 117/78; PULSE 78; RESP 18; TEMP 97.6
== END 2023-10-03 00:48 | disposition home or self-care (01) ==
LOC: EC 21:48
DX: G89.29 Other chronic pain (principal); R10.9 Unspecified abdominal pain; F17.200 Nicotine dependence, unspecified, uncomplicated; Z88.2 Allergy status to sulfonamides; Z88.1 Allergy status to other antibiotic agents; Z88.0 Allergy status to penicillin; Z88.8 Allergy status to other drugs, medicaments and biological substances; Z91.018 Allergy to other foods
CPT/HCPCS: 99284 ×2; 96374 ×2; 96361 ×2; 81001; 87086; J2270

== ENCOUNTER 2023-11-26 17:59 | Emergency (ER) | payer OTHER ==
[2023-11-26 18:18] VITALS: TEMP 98.6
[2023-11-26 18:37] LABS: Appearance,Urine Clear (Clear); Bilirubin,Urine Negative (Negative); Blood,Urine Large (Negative); Calcium Oxalate Crystals,Urine Rare /hpf; Color,Urine Yellow; Glucose,Urine (UA) Negative (Negative); Ketones,Urine Negative (Negative); Leukocyte Esterase,Urine Trace (Negative); Mucus,Urine Moderate /hpf; Nitrite,Urine Negative (Negative); Protein,Urine 1+ (Negative); RBC,Urine >182 /hpf (0-5); Specific Gravity,Urine 1.026 (1.001-1.035); Squamous Epithelial Cell,Urine 3 /hpf (0-4); WBC,Urine 1 /hpf (0-5)
--- NOTE | 2023-11-26 18:41 | ED ---
Abdominal Pain HPI - General Source: patient, RN notes reviewed Mode of arrival: ambulatory Limitations: no limitations <Araceli Arana - Last Filed: 11/26/23 18:50> - General Source: patient, RN notes reviewed, old records reviewed <Dewey Ellington - Last Filed: 11/27/23 01:06> - General Chief Complaint: Abdominal Pain Stated Complaint: Abdominal Pain Time Seen by Provider: 11/26/23 18:15 - History of Present Illness Initial Comments: Quick Note-this is a 48-year-old female who presents the emergency department chief complaint of left flank pain over the past 2 days. She endorses increase in frequency and urgency of urination. Endorses nausea no vomiting. History of nephrostomy tubes and nephrolithiasis. (Araceli Arana) Patient is a 48-year-old female who presents emergency department complaining of abdominal pain. Originally seen as a quick note. Has a history of kidney stones. Presented with kidney stone pain in the left flank. Noticed hematuria as well. Worse over the last few days. Presents for further evaluation at this time. Recently seen as a quick note. I evaluated the patient when she was p laced in room. (Dewey Ellington) - Related Data Home Medications Medication Instructions Recorded Confirmed oxyCODONE-APAP 10-325MG [Percocet 1 tab PO QID PRN 08/29/17 05/03/23 10-325 mg] PARoxetine HCL [Paxil] 40 mg PO DAILY 03/12/18 05/03/23 PARoxetine [Paxil] 20 mg PO DAILY 06/04/18 05/03/23 Loratadine 10 mg PO DAILY 04/21/20 05/03/23 Dextroamphetamine/Amphetamine 20 mg PO BID 12/07/21 05/03/23 [Dextroamp-Amphetamin 20 mg Tab] Multivitamins, Thera [Multivitamin 1 tab PO DAILY 12/07/21 05/03/23 (formulary)] SUMAtriptan succinate [Imitrex] 100 mg PO DAILY PRN 12/07/21 05/03/23 Atorvastatin [Lipitor] 40 mg PO DAILY 05/03/23 05/03/23 Cholecalciferol [Vitamin D3 (25 25 mcg PO DAILY 05/03/23 05/03/23 Mcg = 1000 Iu)] Cyanocobalamin (Vitamin B-12) 1,000 mcg PO DAILY 05/03/23 05/03/23 [Vitamin B-12] Tirzepatide [Mounjaro] 12.5 mg SQ WE 05/03/23 05/03/23 lisinopriL [Zestril] 10 mg PO DAILY 05/03/23 05/03/23 metFORMIN HCL 1,000 mg PO BID 05/03/23 05/03/23 Previous Rx's Medication Instructions Recorded Ondansetron Odt [Zofran Odt] 4 mg PO Q8HR PRN #20 tab 09/06/22 Cephalexin [Keflex] 500 mg PO Q6HR 7 Days #28 cap 09/27/23 Fluconazole 150 mg PO DIRECTED #2 tab 09/27/23 Tamsulosin [Flomax] 0.4 mg PO DAILY 14 Days #14 cap 11/26/23 Allergies Allergy/AdvReac Type Severity Reaction Status Date / Time bupropion HCl Allergy Rash/Hives Verified 10/02/23 22:05 [From Wellbutrin] divalproex sodium Allergy Unknown Verified 10/02/23 22:05 [From Depakote] fentanyl Allergy Swelling Verified 10/02/23 22:05 Iodinated Contrast Media Allergy Anaphylaxis Verified 10/02/23 22:05 [Iodinated Contrast Media - IV Dye] orange juice [[place]] Allergy Rash/Hives Verified 10/02/23 22:05 Penicillins Allergy Rash/Hives/Gi Verified 10/02/23 22:05 Upset Sulfa (Sulfonamide Allergy Rash/Hives Verified 10/02/23 22:05 Antibiotics) sulfamethoxazole Allergy Rash/Hives Verified 10/02/23 22:05 [From Bactrim] trimethoprim [From Bactrim] Allergy Rash/Hives Verified 10/02/23 22:05 Review of Systems ROS Other: All systems not noted in ROS Statement are negative. <Araceli Arana - Last Filed: 11/26/23 18:50> ROS Other: All systems not noted in ROS Statement are negative. <Dewey Ellington - Last Filed: 11/27/23 01:06> ROS Statement: Those systems with pertinent positive or pertinent negative responses have been documented in the HPI. Review of Systems: CONST: Denies fever EYES: Denies blurry vision ENT: Denies nasal congestion C/V: Denies Chest pain RESP: Denies shortness of breath GI: Endorses left flank pain : Denies dysuria SKIN: Denies rash. MSK: Denies joint pain. 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 History of Any Multi-Drug Resistant Organisms: ESBL Date of last positivie culture/infection: 05/14/17 MDRO Source:: ESBL URINE, Past Surgical History: Bladder Surgery, Section, Cholecystectomy, Hysterectomy, Orthopedic Surgery, Tubal Ligation Additional Past Surgical History / Comment(s): R ovarian cystectomy, laparoscopic surgery for L ovary that had attached to the bowel, D&C, numerous lithotripsies, nephroscopies, cystoscopies and stents to ureters-none in place at this time, L robotic pyeloplasty with post op infection around kidney which then required a picc line/later removed (pt states was not MRSA), L rotator cuff repair, L wrist tendon surgery, colonoscopy. Kidney stone removal. Past Anesthesia/Blood Transfusion Reactions: Family History of Problems w/ Anesthesia Additional Past Anesthesia/Blood Transfusion Reaction / Comment(s): dad-hard time waking up due to enzyme problems in liver Past Psychological History: ADD/ADHD, Anxiety, Bipolar, Depression, PTSD Smoking Status: Current every day smoker Past Alcohol Use History: None Reported Past Drug Use History: None Reported - Past Family History Brother(s) Family Medical History: Cancer Additional Family Medical History / Comment(s): testicular Father Family Medical History: Coronary Artery Disease (CAD), CVA/TIA, Diabetes Mellitus, Renal Disease Additional Family Medical History / Comment(s): GLAUCOMA,NEUROPATHY HAD TRIPLE CABG, at 56yrs from renal disease. Mother Family Medical History: Hyperlipidemia Additional Family Medical History / Comment(s): DDD, HAD 3 vessel CABG AGE 54. <Araceli Arana - Last Filed: 11/26/23 18:50> General Exam Limitations: no limitations <Araceli Arana - Last Filed: 11/26/23 18:50> <Dewey Ellington - Last Filed: 11/27/23 01:06> - General Exam Comments Initial Comments: Visual Physical Exam Vital signs reviewed General: Well-appearing, nontoxic, no acute distress. Head: Normocephalic, atraumatic Eyes: PERRLA, EOMI ENT: Airway patent Chest: Nonlabored breathing Skin: No visual rash, normal skin tone Neuro: Alert and oriented 3 Musculoskeletal: No gross abnormalities (Araceli Arana) General: Mild discomfort secondary to abdominal pain. HEAD: Normal with no signs of head trauma. EYES: PERRLA, EOMI, conjunctiva normal, no discharge. ENT: Hearing grossly intact, normal oropharynx. RESPIRATORY: Clear breath sounds bilaterally. No wheezes, rales, or rhonchi. C/V: Regular rate and rhythm. S1 and S2 auscultated, no edema, peripheral pulses 2+ and intact throughout ABD: Abdomen is soft, nondistended. Tender to palpation in the left flank. No guarding. No rebound tenderness. No peritoneal signs. EXT: Normal range of motion, no obvious deformity SKIN: No rashes or lesions observed on exposed skin. NEURO: Alert and oriented x 4. (Dewey Ellington) Course Vital Signs 11/26/23 11/26/23 18:16 22:40 Temperature 98.6 F Pulse Rate 106 H 100 Respiratory 20 18 Rate Blood Pressure 110/75 116/70 O2 Sat by Pulse 99 99 Oximetry Medical Decision Making <Araceli Arana - Last Filed: 11/26/23 18:50> - Lab Data Result diagrams: 11/26/23 21:15 11/26/23 21:15 <Dewey Ellington - Last Filed: 11/27/23 01:06> - Medical Decision Making I completed the quick note portion of this chart signed Araceli Arana PA-C (Araceli Arana) Was pt. sent in by a medical professional or institution ([facility], [facility], urgent care, hospital, or usp...) When possible be specific @ -No Did you speak to anyone other than the patient for history (EMS, parent, family, police, friend...)? What history was obtained from this source @ -No Did you review nursing and triage notes (agree or disagree)? Why? @ -I reviewed and agree with nursing and triage notes Were old charts reviewed (outside hosp., previous admission, EMS record, old EKG, old radiological studies, urgent care reports/EKG's, usp records)? Report findings @ -No old charts were reviewed Differential Diagnosis (chest pain, altered mental status, abdominal pain women, abdominal pain men, vaginal bleeding, weakness, fever, dyspnea, syncope, headache, dizziness, GI bleed, back pain, seizure, CVA, palpatations, mental health, musculoskeletal)? @ -Differential Abdominal Pain Women: Appendicitis, Cholecystitis, diverticulosis, ischemic bowel, pancreatitis, hepatitis, UTI, gastroenteritis, AAA, incarcerated hernia, bowel obstruction, constipation, inflammatory bowel, hepatitis, peptic ulcer disease, splenic infarction, perforated viscus, vulvitis, ovarian torsion, PID, kidney stone, placenta abruption, this is not meant to be an all-inclusive list EKG interpreted by me (3pts min.). @ -None done X-rays interpreted by me (1pt min.). @ -None done CT interpreted by me (1pt min.). @ -None done U/S interpreted by me (1pt. min.). @ -Ultrasound reveals mild left-sided hydronephrosis. Patient also has a nonobstructing left renal calculus. What testing was considered but not performed or refused? (CT, X-rays, U/S, labs)? Why? @ -None What meds were considered but not given or refused? Why? @ -None Did you discuss the management of the patient with other professionals (professionals i.e. , PA, [facility], lab, RT, psych nurse, psychiatric social worker, supervisor cap and hat production, teacher, complaint evaluation officer, major case detective)? Give summary @ -No Was smoking cessation discussed for >3mins.? @ -No Was critical care preformed (if so, how long)? @ -No Were there social determinants of health that impacted care today? How? (Homelessness, low income, unemployed, alcoholism, drug addiction, transpor tation, low edu. Level, literacy, decrease access to med. care, snf, rehab)? @ -No Was there de-escalation of care discussed even if they declined (Discuss DNR or withdrawal of care, Hospice)? DNR status @ -No What co-morbidities impacted this encounter? (DM, HTN, Smoking, COPD, CAD, Cancer, CVA, ARF, Chemo, Hep., AIDS, mental health diagnosis, sleep apnea, morbid obesity)? @ -None Was patient admitted / discharged? Hospital course, mention meds given and route, prescriptions, significant lab abnormalities, going to OR and other pertinent info. @ -The patient's presentation and physical exam, presents emergency department complaining of left flank pain. History of kidney stones. Workup started in triage. Ultrasound shows mild left-sided hydronephrosis as well as a urinalysis that shows hematuria. No evidence of infection. I did recommend basic labs to assess kidney function and any evidence of severe infection. She was in agreement this plan. She will be symptomatically treated with analgesia medications and IV fluids. Vital signs are within acceptable limits. Labs returned remarkable for slight leukocytosis of 13 which is likely reactive. Normal kidney function. On reevaluation, pain is improved. We discussed results. She will be started on Flomax. She will follow-up with her outpatient urologist. She had no other questions at this time. She already has a strainer at home. I will provide the patient with a prescription for Flomax. I instructed the patient to follow up with their PCP in the next 1-3 days.. I explained that the patient should return to the emergency department if they experience any worsening symptoms. Strict return precautions were discussed with the patient. The patient expressed understanding of these instructions. I answered all questions that the patient had. The patient was discharged home in good condition with their prescriptions and follow up information. Undiagnosed new problem with uncertain prognosis? @ -No Drug Therapy requiring intensive monitoring for toxicity (Heparin, Nitro, Insulin, Cardizem)? @ -No Were any procedures done? @ -No Diagnosis/symptom? @ -Kidney stones Acute, or Chronic, or Acute on Chronic? @ -Acute Uncomplicated (without systemic symptoms) or Complicated (systemic symptoms)? @ -Complicated Side effects of treatment? @ -No Exacerbation, Progression, or Severe Exacerbation? @ -No Poses a threat to life or bodily function? How? (Chest pain, [place], [place], pneumonia, PE, COPD, DKA, ARF, appy, cholecystitis, CVA, Diverticulitis, Homicidal, Suicidal, threat to staff... and all critical care pts) @ -Unlikely (Dewey Ellington) - Lab Data Lab Results 11/26/23 11/26/23 11/26/23 Range/Units 18:20 21:15 21:15 WBC 13.0 H (3.8-10.6) k/uL RBC 5.01 (3.80-5.40) m/uL Hgb 14.8 (11.4-16.0) gm/dL Hct 43.4 (34.0-46.0) % MCV 86.5 (80.0-100.0) fL MCH 29.6 (25.0-35.0) pg MCHC 34.2 (31.0-37.0) g/dL RDW 12.5 (11.5-15.5) % Plt Count 298 (150-450) k/uL MPV 8.0 Neutrophils % (Manual) 41 % Lymphocytes % (Manual) 54 % Monocytes % (Manual) 4 % Eosinophils % (Manual) 1 % Neutrophils # (Manual) 5.33 (1.3-7.7) k/uL Lymphocytes # (Manual) 7.02 H (1.0-4.8) k/uL Monocytes # (Manual) 0.52 (0-1.0) k/uL Eosinophils # (Manual) 0.13 (0-0.7) k/uL Nucleated RBCs 0 (0-0) /100 WBC Manual Slide Review Performed RBC Morphology Normal Sodium 141 (137-145) mmol/L Potassium 3.7 (3.5-5.1) mmol/L Chloride 108 H (98-107) mmol/L Carbon Dioxide 24 (22-30) mmol/L Anion Gap 9 mmol/L BUN 13 (7-17) mg/dL Creatinine 0.54 (0.52-1.04) mg/dL Est GFR (CKD-EPI)AfAm >90 (>60 ml/min/1.73 sqM) Est GFR (CKD-EPI)NonAf >90 (>60 ml/min/1.73 sqM) Glucose 109 H (74-99) mg/dL Calcium 9.9 (8.4-10.2) mg/dL Urine Color Yellow Urine Appearance Clear (Clear) Urine pH 8.0 (5.0-8.0) Ur Specific [place] 1.026 (1.001-1.035) Urine Protein 1+ H (Negative) Urine Glucose (UA) Negative (Negative) Urine Ketones Negative (Negative) Urine Blood Large H (Negative) Urine Nitrite Negative (Negative) Urine Bilirubin Negative (Negative) Urine Urobilinogen 4.0 (<2.0) mg/dL Ur Leukocyte Esterase Trace H (Negative) Urine RBC >182 H (0-5) /hpf Urine WBC 1 (0-5) /hpf Ur Squamous Epith Cells 3 (0-4) /hpf Calcium Oxalate Crystal Rare H (None) /hpf Urine Mucus Moderate H (None) /hpf Disposition <Araceli Arana - Last Filed: 11/26/23 18:50> Is patient prescribed a controlled substance at d/c from ED?: No Time of Disposition: 22:34 <Dewey Ellington - Last Filed: 11/27/23 01:06> Clinical Impression: Kidney stone Disposition: HOME SELF-CARE Condition: Good Instructions (If sedation given, give patient instructions): Kidney Stones (ED) Prescriptions: Tamsulosin [Flomax] 0.4 mg PO DAILY 14 Days #14 cap Referrals: Rajiv Sexton MD [Primary Care Provider] - 1-2 days
--- NOTE | 2023-11-26 19:57 | US ---
EXAMINATION TYPE: US kidneys/renal and bladder DATE OF EXAM: 11/26/2023 COMPARISON: 11/23/2022, 09/06/2023 CT CLINICAL INDICATION: Female, 48 years old with history of left flank pain, hx kidney stones, hematuri a; Patient states left flank pain and hx of kidney stones. EXAM MEASUREMENTS: Right Kidney: 10.4 x 4.2 x 5.1 cm Left Kidney: 10.0 x 4.8 x 4.3 cm Right Kidney: wnl as best seen today Left Kidney: There is a 6mm echogenic area seen within the mid left kidney. Mild hydronephrosis as se en previously. Bladder: Bladder undistended, unable to evaluate Bilateral Jets seen: No IMPRESSION: 1. Mild left hydronephrosis versus extrarenal pelvis. Findings similar to 09/06/2023 CT 2. Nonobstructing left renal calculus.
[2023-11-26] MEDS: MORPHINE SULFATE 4 MG/ML SYRINGE IVP STA ×2 (21:34→23:02)
[2023-11-26] MEDS: ONDANSETRON 4 MG/2 ML VIAL IVP STA (21:35)
[2023-11-26] MEDS: SODIUM CHLORIDE 0.9% 1,000 ML IV STA (21:35)
[2023-11-26 22:11] LABS: African American GFR (CKD) >90 (>60 ml/min/1.73 sqM); Anion Gap 9 mmol/L; Blood Urea Nitrogen 13 mg/dL (7-17); Calcium 9.9 mg/dL (8.4-10.2); Carbon Dioxide 24 mmol/L (22-30); Chloride 108 mmol/L (98-107); Glucose 109 mg/dL (74-99); Non-African American GFR(CKD) >90 (>60 ml/min/1.73 sqM); Potassium 3.7 mmol/L (3.5-5.1); Sodium 141 mmol/L (137-145)
[2023-11-26 22:13] LABS: HCT 43.4 % (34.0-46.0); HGB 14.8 gm/dL (11.4-16.0); MCH 29.6 pg (25.0-35.0); MCHC 34.2 g/dL (31.0-37.0); MCV 86.5 fL (80.0-100.0); Platelet Count 298 k/uL (150-450); RBC 5.01 m/uL (3.80-5.40); RDW 12.5 % (11.5-15.5)
[2023-11-26 22:39] LABS: Eosinophils # (M) 0.13 k/uL (0-0.7); Lymphocytes # (M) 7.02 k/uL (1.0-4.8); Monocytes # (M) 0.52 k/uL (0-1.0); Neutrophils # (M) 5.33 k/uL (1.3-7.7); Neutrophils % (M) 41 %; Nucleated Red Blood Cells 0 /100 WBC (0-0); Total Cells Counted 100
[2023-11-26 22:40] LABS: RBC Morphology Normal
[2023-11-26 22:42] VITALS: BP 116/70; PULSE 100; RESP 18
[2023-11-26] MEDS: TAMSULOSIN 0.4 MG CAP.ER.24H PO STA (23:03)
[2023-11-26] MEDS: ONDANSETRON 4 MG ODT STARTER PACK 2 TAB BTL PO STA (23:03)
== END 2023-11-26 23:03 | disposition home or self-care (01) ==
LOC: EC 17:59
DX: N20.0 Calculus of kidney (principal); F17.200 Nicotine dependence, unspecified, uncomplicated; Z88.0 Allergy status to penicillin; Z88.1 Allergy status to other antibiotic agents; Z88.2 Allergy status to sulfonamides; Z88.8 Allergy status to other drugs, medicaments and biological substances; Z91.041 Radiographic dye allergy status; Z90.49 Acquired absence of other specified parts of digestive tract
CPT/HCPCS: 36415; 80048; 85025; 81001; 76770; 99284; 96374; 96375; 96376; 96361; J2270; J2405; S0119

== ENCOUNTER 2023-12-01 02:08 | Emergency (ER) | payer OTHER ==
[2023-12-01 02:16] VITALS: RESP 16; TEMP 97.8
[2023-12-01] MEDS: METOCLOPRAMIDE 5 MG/ML 2 ML VIAL IVP STA (02:40)
[2023-12-01] MEDS: HYDROmorphone 0.5 MG/0.5 ML SYRINGE IVP STA (02:42)
[2023-12-01] MEDS: SODIUM CHLORIDE 0.9% 1,000 ML IV STA (02:44)
[2023-12-01 02:59] LABS: HCT 41.5 % (34.0-46.0); HGB 14.7 gm/dL (11.4-16.0); MCH 30.1 pg (25.0-35.0); MCHC 35.3 g/dL (31.0-37.0); MCV 85.2 fL (80.0-100.0); Mean Platelet Volume 7.6; Platelet Count 289 k/uL (150-450); RBC 4.87 m/uL (3.80-5.40); RDW 12.4 % (11.5-15.5); WBC 14.6 k/uL (3.8-10.6)
[2023-12-01 03:09] LABS: Appearance,Urine Cloudy (Clear); Bilirubin,Urine Negative (Negative); Blood,Urine Large (Negative); Calcium Oxalate Crystals,Urine Occasional /hpf; Color,Urine Light Red; Glucose,Urine (UA) Negative (Negative); Ketones,Urine Negative (Negative); Leukocyte Esterase,Urine Trace (Negative); Mucus,Urine Rare /hpf; Nitrite,Urine Negative (Negative); PH, Urine 5.5 (5.0-8.0); Protein,Urine Trace (Negative); RBC,Urine >182 /hpf (0-5); Specific Gravity,Urine 1.028 (1.001-1.035); Squamous Epithelial Cell,Urine 10 /hpf (0-4); Urobilinogen,Urine <2.0 mg/dL (<2.0); WBC,Urine 7 /hpf (0-5)
[2023-12-01 03:15] LABS: ALT 17 U/L (4-34); AST 22 U/L (14-36); African American GFR (CKD) >90 (>60 ml/min/1.73 sqM); Albumin 4.4 g/dL (3.5-5.0); Alkaline Phosphatase 75 U/L (38-126); Anion Gap 9 mmol/L; Blood Urea Nitrogen 16 mg/dL (7-17); Calcium 9.4 mg/dL (8.4-10.2); Carbon Dioxide 20 mmol/L (22-30); Chloride 110 mmol/L (98-107); Glucose 143 mg/dL (74-99); Lipase 345 U/L (23-300); Non-African American GFR(CKD) >90 (>60 ml/min/1.73 sqM); Potassium 3.3 mmol/L (3.5-5.1); Sodium 139 mmol/L (137-145); Total Bilirubin 1.6 mg/dL (0.2-1.3); Total Protein 6.6 g/dL (6.3-8.2)
--- NOTE | 2023-12-01 03:20 | ED ---
Abdominal Pain HPI - General Chief Complaint: Abdominal Pain Stated Complaint: Abd Pain Time Seen by Provider: 12/01/23 02:18 Source: patient Mode of arrival: ambulatory Limitations: no limitations - History of Present Illness Initial Comments: 48-year-old female presenting with chief complaint of abdominal pain. Patient has history of kidney stones, states that she is currently aware of a ureteral stone on the left side. She follows with a urologist in [place] and states that she is scheduled for lithotripsy next week. She has been having left-sided flank pain which radiates to the abdomen as well as nausea and vomiting. She is concerned for dehydration. She denies any dysuria, fever, chills. - Related Data Home Medications Medication Instructions Recorded Confirmed oxyCODONE-APAP 10-325MG [Percocet 1 tab PO QID PRN 08/29/17 05/03/23 10-325 mg] PARoxetine HCL [Paxil] 40 mg PO DAILY 03/12/18 05/03/23 PARoxetine [Paxil] 20 mg PO DAILY 06/04/18 05/03/23 Loratadine 10 mg PO DAILY 04/21/20 05/03/23 Dextroamphetamine/Amphetamine 20 mg PO BID 12/07/21 05/03/23 [Dextroamp-Amphetamin 20 mg Tab] Multivitamins, Thera [Multivitamin 1 tab PO DAILY 12/07/21 05/03/23 (formulary)] SUMAtriptan succinate [Imitrex] 100 mg PO DAILY PRN 12/07/21 05/03/23 Atorvastatin [Lipitor] 40 mg PO DAILY 05/03/23 05/03/23 Cholecalciferol [Vitamin D3 (25 25 mcg PO DAILY 05/03/23 05/03/23 Mcg = 1000 Iu)] Cyanocobalamin (Vitamin B-12) 1,000 mcg PO DAILY 05/03/23 05/03/23 [Vitamin B-12] Tirzepatide [Mounjaro] 12.5 mg SQ WE 05/03/23 05/03/23 lisinopriL [Zestril] 10 mg PO DAILY 05/03/23 05/03/23 metFORMIN HCL 1,000 mg PO BID 05/03/23 05/03/23 Previous Rx's Medication Instructions Recorded Ondansetron Odt [Zofran Odt] 4 mg PO Q8HR PRN #20 tab 09/06/22 Cephalexin [Keflex] 500 mg PO Q6HR 7 Days #28 cap 09/27/23 Fluconazole 150 mg PO DIRECTED #2 tab 09/27/23 Tamsulosin [Flomax] 0.4 mg PO DAILY 14 Days #14 cap 11/26/23 Allergies Allergy/AdvReac Type Severity Reaction Status Date / Time bupropion HCl Allergy Rash/Hives Verified 12/01/23 02:13 [From Wellbutrin] divalproex sodium Allergy Unknown Verified 12/01/23 02:13 [From Depakote] fentanyl Allergy Swelling Verified 12/01/23 02:13 Iodinated Contrast Media Allergy Anaphylaxis Verified 12/01/23 02:13 [Iodinated Contrast Media - IV Dye] orange juice [[place]] Allergy Rash/Hives Verified 12/01/23 02:13 Penicillins Allergy Rash/Hives/Gi Verified 12/01/23 02:13 Upset Sulfa (Sulfonamide Allergy Rash/Hives Verified 12/01/23 02:13 Antibiotics) sulfamethoxazole Allergy Rash/Hives Verified 12/01/23 02:13 [From Bactrim] trimethoprim [From Bactrim] Allergy Rash/Hives Verified 12/01/23 02:13 Review of Systems ROS Statement: Those systems with pertinent positive or pertinent negative responses have been documented in the HPI. ROS Other: All systems not noted in ROS Statement are negative. 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 History of Any Multi-Drug Resistant Organisms: ESBL Date of last positivie culture/infection: 05/14/17 MDRO Source:: ESBL URINE, Past Surgical History: Bladder Surgery, Section, Cholecystectomy, Hysterectomy, Orthopedic Surgery, Tubal Ligation Additional Past Surgical History / Comment(s): R ovarian cystectomy, laparoscopic surgery for L ovary that had attached to the bowel, D&C, numerous lithotripsies, nephroscopies, cystoscopies and stents to ureters-none in place at this time, L robotic pyeloplasty with post op infection around kidney which then required a picc line/later removed (pt states was not MRSA), L rotator cuff repair, L wrist tendon surgery, colonoscopy. Kidney stone removal. Past Anesthesia/Blood Transfusion Reactions: Family History of Problems w/ Anesthesia Additional Past Anesthesia/Blood Transfusion Reaction / Comment(s): dad-hard time waking up due to enzyme problems in liver Past Psychological History: ADD/ADHD, Anxiety, Bipolar, Depression, PTSD Smoking Status: Current every day smoker Past Alcohol Use History: None Reported Past Drug Use History: None Reported - Past Family History Brother(s) Family Medical History: Cancer Additional Family Medical History / Comment(s): testicular Father Family Medical History: Coronary Artery Disease (CAD), CVA/TIA, Diabetes Mellitus, Renal Disease Additional Family Medical History / Comment(s): GLAUCOMA,NEUROPATHY HAD TRIPLE CABG, at 56yrs from renal disease. Mother Family Medical History: Hyperlipidemia Additional Family Medical History / Comment(s): DDD, HAD 3 vessel CABG AGE 54. General Exam Limitations: no limitations General appearance: alert, in no apparent distress Head exam: Present: atraumatic, normocephalic Eye exam: Present: normal appearance, EOMI Neck exam: Present: normal inspection. Absent: meningismus Respiratory exam: Present: normal lung sounds bilaterally. Absent: respiratory distress, wheezes, rales, rhonchi, stridor Cardiovascular Exam: Present: regular rate, normal rhythm, normal heart sounds. Absent: systolic murmur, diastolic murmur, rubs, gallop, clicks GI/Abdominal exam: Present: soft, tenderness. Absent: distended, guarding, rebound, rigid Neurological exam: Present: alert, oriented X3 Psychiatric exam: Present: normal affect, normal mood Skin exam: Present: warm, dry Course Vital Signs 12/01/23 12/01/23 02:13 03:36 Temperature 97.8 F Pulse Rate 96 71 Respiratory 16 16 Rate Blood Pressure 122/81 118/74 O2 Sat by Pulse 100 96 Oximetry Medical Decision Making - Medical Decision Making Was pt. sent in by a medical professional or institution (, PA, CONDITIONER TUMBLER, urgent care, hospital, or prison...) When possible be specific @ -No Did you speak to anyone other than the patient for history (EMS, parent, family, police, friend...)? What history was obtained from this source @ -No Did you review nursing and triage notes (agree or disagree)? Why? @ -I reviewed and agree with nursing and triage notes Were old charts reviewed (outside hosp., previous admission, EMS record, old EKG, old radiological studies, urgent care reports/EKG's, prison records)? Report findings @ -No old charts were reviewed Differential Diagnosis (chest pain, altered mental status, abdominal pain women, abdominal pain men, vaginal bleeding, weakness, fever, dyspnea, syncope, headache, dizziness, GI bleed, back pain, seizure, CVA, palpatations, mental health, musculoskeletal)? @ -MDM Differential Abdominal Pain Women: Appendicitis, Cholecystitis, diverticulosis, ischemic bowel, pancreatitis, hepatitis, UTI, gastroenteritis, AAA, incarcerated hernia, bowel obstruction, constipation, inflammatory bowel, hepatitis, peptic ulcer disease, splenic infarction, perforated viscus, vulvitis, ovarian torsion, PID, kidney stone, placenta abruption... This is not meant to be an all-inclusive list EKG interpreted by me (3pts min.). @ -As above X-rays interpreted by me (1pt min.). @ -None done CT interpreted by me (1pt min.). @ -None done U/S interpreted by me (1pt. min.). @ -None done What testing was considered but not performed or refused? (CT, X-rays, U/S, labs)? Why? @ -None What meds were considered but not given or refused? Why? @ -None Did you discuss the management of the patient with other professionals (professionals i.e. , PA, CONDITIONER TUMBLER, lab, RT, psych nurse, social media analyst, rat culturist, teacher, sales officer, case resolution specialist)? Give summary @ -No Was smoking cessation discussed for >3mins.? @ -No Was critical care preformed (if so, how long)? @ -No Were there social determinants of health that impacted care today? How? (Homelessness, low income, unemployed, alcoholism, drug addiction, transportation, low edu. Level, literacy, decrease access to med. care, fdc, rehab)? @ -No Was there de-escalation of care discussed even if they declined (Discuss DNR or withdrawal of care, Hospice)? DNR status @ -No What co-morbidities impacted this encounter? (DM, HTN, Smoking, COPD, CAD, Cancer, CVA, ARF, Chemo, Hep., AIDS, mental health diagnosis, sleep apnea, morbid obesity)? @ -None Was patient admitted / discharged? Hospital course, mention meds given and route, prescriptions, significant lab abnormalities, going to OR and other [facility] info. @ -48-year-old female with history of kidney stones presenting with chief complaint of left-sided abdominal and flank pain. She has a known stone at this time, scheduled next week for lithotripsy with her urologist in [place]. Admits to nausea and vomiting. History and physical exam are conducted. WBC 14.6, likely reactive and seems to be baseline for this patient. Normal. Func tion. Potassium 3.3, patient is given IV fluids and 20 of K-Dur. Urine shows large blood trace leukocytes. Negative hCG. Lipase mildly elevated at 345. Patient is treated with antiemetics and analgesia. On reassessment she reports improvement in her symptoms. Discharged home. She will follow-up with her urologist. Follow-up with PCP. Report back to ER with any new or worsening symptoms. Discussed return parameters and answered all questions. Patient conveyed verbal understanding and agreed to the plan. I discussed this case in detail with my attending Dr. Nelson Undiagnosed new problem with uncertain prognosis? @ -No Drug Therapy requiring intensive monitoring for toxicity (Heparin, Nitro, Insulin, Cardizem)? @ -No Were any procedures done? @ -No Diagnosis/symptom? @ -Kidney stones Acute, or Chronic, or Acute on Chronic? @ -Acute Uncomplicated (without systemic symptoms) or Complicated (systemic symptoms)? @ -Uncomplicated Side effects of treatment? @ -No Exacerbation, Progression, or Severe Exacerbation? @ -No Poses a threat to life or bodily function? How? (Chest pain, [place], GA, pneumonia, PE, COPD, DKA, ARF, appy, cholecystitis, CVA, Diverticulitis, Homicidal, Suicidal, threat to staff... and all critical care pts) @ -No - Lab Data Result diagrams: 12/01/23 02:36 12/01/23 02:36 Lab Results 06/08/24 06/08/24 06/08/24 Range/Units 02:35 02:35 02:36 WBC 14.6 H (3.8-10.6) k/uL RBC 4.87 (3.80-5.40) m/uL Hgb 14.7 (11.4-16.0) gm/dL Hct 41.5 (34.0-46.0) % MCV 85.2 (80.0-100.0) fL MCH 30.1 (25.0-35.0) pg MCHC 35.3 (31.0-37.0) g/dL RDW 12.4 (11.5-15.5) % Plt Count 289 (150-450) k/uL MPV 7.6 Neutrophils % Not Reportable Neutrophils % (Manual) 49 % Lymphocytes % Not Reportable Lymphocytes % (Manual) 42 % Monocytes % Not Reportable Monocytes % (Manual) 6 % Eosinophils % Not Reportable Eosinophils % (Manual) 3 % Basophils % Not Reportable Neutrophils # Not Reportable Neutrophils # (Manual) 7.15 (1.3-7.7) k/uL Lymphocytes # Not Reportable Lymphocytes # (Manual) 6.13 H (1.0-4.8) k/uL Monocytes # Not Reportable Monocytes # (Manual) 0.88 (0-1.0) k/uL Eosinophils # Not Reportable Eosinophils # (Manual) 0.44 (0-0.7) k/uL Basophils # Not Reportable Nucleated RBCs 0 (0-0) /100 WBC Manual Slide Review Performed Reactive Lymphocytes Present Sodium (137-145) mmol/L Potassium (3.5-5.1) mmol/L Chloride (98-107) mmol/L Carbon Dioxide (22-30) mmol/L Anion Gap mmol/L BUN (7-17) mg/dL Creatinine (0.52-1.04) mg/dL Est GFR (CKD-EPI)AfAm (>60 ml/min/1.73 sqM) Est GFR (CKD-EPI)NonAf (>60 ml/min/1.73 sqM) Glucose (74-99) mg/dL Calcium (8.4-10.2) mg/dL Total Bilirubin (0.2-1.3) mg/dL AST (14-36) U/L ALT (4-34) U/L Alkaline Phosphatase (38-126) U/L Total Protein (6.3-8.2) g/dL Albumin (3.5-5.0) g/dL Lipase (23-300) U/L Urine Color Light Red Urine Appearance Cloudy H (Clear) Urine pH 5.5 (5.0-8.0) Ur Specific [place] 1.028 (1.001-1.035) Urine Protein Trace H (Negative) Urine Glucose (UA) Negative (Negative) Urine Ketones Negative (Negative) Urine Blood Large H (Negative) Urine Nitrite Negative (Negative) Urine Bilirubin Negative (Negative) Urine Urobilinogen <2.0 (<2.0) mg/dL Ur Leukocyte Esterase Trace H (Negative) Urine RBC >182 H (0-5) /hpf Urine WBC 7 H (0-5) /hpf Ur Squamous Epith Cells 10 H (0-4) /hpf Calcium Oxalate Crystal Occasional H (None) /hpf Urine Mucus Rare H (None) /hpf Urine HCG, Qual Not Detected (Not Detectd) 12/01/23 Range/Units 02:36 WBC (3.8-10.6) k/uL RBC (3.80-5.40) m/uL Hgb (11.4-16.0) gm/dL Hct (34.0-46.0) % MCV (80.0-100.0) fL MCH (25.0-35.0) pg MCHC (31.0-37.0) g/dL RDW (11.5-15.5) % Plt Count (150-450) k/uL MPV Neutrophils % Neutrophils % (Manual) % Lymphocytes % Lymphocytes % (Manual) % Monocytes % Monocytes % (Manual) % Eosinophils % Eosinophils % (Manual) % Basophils % Neutrophils # Neutrophils # (Manual) (1.3-7.7) k/uL Lymphocytes # Lymphocytes # (Manual) (1.0-4.8) k/uL Monocytes # Monocytes # (Manual) (0-1.0) k/uL Eosinophils # Eosinophils # (Manual) (0-0.7) k/uL Basophils # Nucleated RBCs (0-0) /100 WBC Manual Slide Review Reactive Lymphocytes Sodium 139 (137-145) mmol/L Potassium 3.3 L (3.5-5.1) mmol/L Chloride 110 H (98-107) mmol/L Carbon Dioxide 20 L (22-30) mmol/L Anion Gap 9 mmol/L BUN 16 (7-17) mg/dL Creatinine 0.64 (0.52-1.04) mg/dL Est GFR (CKD-EPI)AfAm >90 (>60 ml/min/1.73 sqM) Est GFR (CKD-EPI)NonAf >90 (>60 ml/min/1.73 sqM) Glucose 143 H (74-99) mg/dL Calcium 9.4 (8.4-10.2) mg/dL Total Bilirubin 1.6 H (0.2-1.3) mg/dL AST 22 (14-36) U/L ALT 17 (4-34) U/L Alkaline Phosphatase 75 (38-126) U/L Total Protein 6.6 (6.3-8.2) g/dL Albumin 4.4 (3.5-5.0) g/dL Lipase 345 H (23-300) U/L Urine Color Urine Appearance (Clear) Urine pH (5.0-8.0) Ur Specific [place] (1.001-1.035) Urine Protein (Negative) Urine Glucose (UA) (Negative) Urine Ketones (Negative) Urine Blood (Negative) Urine Nitrite (Negative) Urine Bilirubin (Negative) Urine Urobilinogen (<2.0) mg/dL Ur Leukocyte Esterase (Negative) Urine RBC (0-5) /hpf Urine WBC (0-5) /hpf Ur Squamous Epith Cells (0-4) /hpf Calcium Oxalate Crystal (None) /hpf Urine Mucus (None) /hpf Urine HCG, Qual (Not Detectd) Disposition Clinical Impression: Ureterolithiasis Disposition: HOME SELF-CARE Condition: Good Instructions (If sedation given, give patient instructions): Kidney Stones (ED) Additional Instructions: Follow-up with your PCP and urologist. Report back to ER with any new or worsening symptoms. Is patient prescribed a controlled substance at d/c from ED?: No Referrals: Rajiv Sexton MD [Primary Care Provider] - 1-2 days Time of Disposition: 03:34
[2023-12-01 03:27] LABS: Eosinophils # (M) 0.44 k/uL (0-0.7); Lymphocytes # (M) 6.13 k/uL (1.0-4.8); Monocytes # (M) 0.88 k/uL (0-1.0); Neutrophils # (M) 7.15 k/uL (1.3-7.7); Neutrophils % (M) 49 %; Nucleated Red Blood Cells 0 /100 WBC (0-0); Total Cells Counted 100
[2023-12-01 03:28] LABS: Reactive Lymphocytes Present
[2023-12-01] MEDS: POTASSIUM CHLORIDE ER 20 MEQ TAB.ER PO STA (03:33)
[2023-12-01 03:36] VITALS: BP 118/74; PULSE 71
== END 2023-12-01 03:38 | disposition home or self-care (01) ==
LOC: EC 02:08
DX: N20.1 Calculus of ureter (principal); F17.200 Nicotine dependence, unspecified, uncomplicated; Z88.8 Allergy status to other drugs, medicaments and biological substances; Z88.2 Allergy status to sulfonamides; Z91.041 Radiographic dye allergy status; Z91.018 Allergy to other foods; Z88.0 Allergy status to penicillin
CPT/HCPCS: 36415; 80053; 83690; 85025; 81001; 81025; 99284; 96374; 96375; 96361; J2765; J1170

== ENCOUNTER 2023-12-02 18:50 | Emergency (ER) | payer OTHER ==
--- NOTE | 2023-12-02 19:17 | ED ---
Abdominal Pain HPI - General Chief Complaint: Urogenital Stated Complaint: kidney stone Time Seen by Provider: 12/02/23 19:07 Source: patient Mode of arrival: ambulatory Limitations: no limitations - History of Present Illness Initial Comments: This patient is a 48-year-old woman with history of frequent kidney stones who presents with left flank pain that she states is identical to previous kidney stone. That she saw her urologist who told her that he expects to perform ureteroscopy on Sunday unless the stone passes prior to that. She states that she has been told she has a lot of scar tissue associated with the left ureter. She is currently taking Flomax. She has not noted fevers. She does feel like she may be a touch dehydrated as she has had some rounds of vomiting associated with the flank pain. Patient states she has also tried Percocet at home which is giving only minimal relief. MD Complaint: flank pain -: days(s) Location: L flank Radiation: none Migration to: no migration Severity: severe Quality: sharp Consistency: colicky Improves With: nothing Worsens With: nothing Associated Symptoms: nausea, vomiting, hematuria - Related Data Home Medications Medication Instructions Recorded Confirmed oxyCODONE-APAP 10-325MG [Percocet 1 tab PO QID PRN 08/29/17 05/03/23 10-325 mg] PARoxetine HCL [Paxil] 40 mg PO DAILY 03/12/18 05/03/23 PARoxetine [Paxil] 20 mg PO DAILY 06/04/18 05/03/23 Loratadine 10 mg PO DAILY 04/21/20 05/03/23 Dextroamphetamine/Amphetamine 20 mg PO BID 12/07/21 05/03/23 [Dextroamp-Amphetamin 20 mg Tab] Multivitamins, Thera [Multivitamin 1 tab PO DAILY 12/07/21 05/03/23 (formulary)] SUMAtriptan succinate [Imitrex] 100 mg PO DAILY PRN 12/07/21 05/03/23 Atorvastatin [Lipitor] 40 mg PO DAILY 05/03/23 05/03/23 Cholecalciferol [Vitamin D3 (25 25 mcg PO DAILY 05/03/23 05/03/23 Mcg = 1000 Iu)] Cyanocobalamin (Vitamin B-12) 1,000 mcg PO DAILY 05/03/23 05/03/23 [Vitamin B-12] Tirzepatide [Mounjaro] 12.5 mg SQ WE 05/03/23 05/03/23 lisinopriL [Zestril] 10 mg PO DAILY 05/03/23 05/03/23 metFORMIN HCL 1,000 mg PO BID 05/03/23 05/03/23 Previous Rx's Medication Instructions Recorded Ondansetron Odt [Zofran Odt] 4 mg PO Q8HR PRN #20 tab 09/06/22 Cephalexin [Keflex] 500 mg PO Q6HR 7 Days #28 cap 09/27/23 Fluconazole 150 mg PO DIRECTED #2 tab 09/27/23 Tamsulosin [Flomax] 0.4 mg PO DAILY 14 Days #14 cap 11/26/23 Allergies Allergy/AdvReac Type Severity Reaction Status Date / Time bupropion HCl Allergy Rash/Hives Verified 12/02/23 19:02 [From Wellbutrin] divalproex sodium Allergy Unknown Verified 12/02/23 19:02 [From Depakote] fentanyl Allergy Swelling Verified 12/02/23 19:02 Iodinated Contrast Media Allergy Anaphylaxis Verified 12/02/23 19:02 [Iodinated Contrast Media - IV Dye] orange juice [Anasco] Allergy Rash/Hives Verified 12/02/23 19:02 Penicillins Allergy Rash/Hives/Gi Verified 12/02/23 19:02 Upset Sulfa (Sulfonamide Allergy Rash/Hives Verified 12/02/23 19:02 Antibiotics) sulfamethoxazole Allergy Rash/Hives Verified 12/02/23 19:02 [From Bactrim] trimethoprim [From Bactrim] Allergy Rash/Hives Verified 12/02/23 19:02 Review of Systems ROS Statement: Those systems with pertinent positive or pertinent negative responses have been documented in the HPI. ROS Other: All systems not noted in ROS Statement are negative. Constitutional: Denies: fever, chills, weakness Respiratory: Denies: cough, dyspnea Cardiovascular: Denies: chest pain, palpitations, edema Gastrointestinal: Reports: abdominal pain, nausea, vomiting. Denies: diarrhea, constipation, melena, hematochezia Genitourinary: Reports: frequency, hematuria. 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 History of Any Multi-Drug Resistant Organisms: ESBL Date of last positivie culture/infection: 05/14/17 MDRO Source:: ESBL URINE, Past Surgical History: Bladder Surgery, Section, Cholecystectomy, Hysterectomy, Orthopedic Surgery, Tubal Ligation Additional Past Surgical History / Comment(s): R ovarian cystectomy, laparosc opic surgery for L ovary that had attached to the bowel, D&C, numerous lithotripsies, nephroscopies, cystoscopies and stents to ureters-none in place at this time, L robotic pyeloplasty with post op infection around kidney which then required a picc line/later removed (pt states was not MRSA), L rotator cuff repair, L wrist tendon surgery, colonoscopy. Kidney stone removal. Past Anesthesia/Blood Transfusion Reactions: Family History of Problems w/ Anesthesia Additional Past Anesthesia/Blood Transfusion Reaction / Comment(s): dad-hard time waking up due to enzyme problems in liver Past Psychological History: ADD/ADHD, Anxiety, Bipolar, Depression, PTSD Smoking Status: Current every day smoker Past Alcohol Use History: None Reported Past Drug Use History: None Reported - Past Family History Brother(s) Family Medical History: Cancer Additional Family Medical History / Comment(s): testicular Father Family Medical History: Coronary Artery Disease (CAD), CVA/TIA, Diabetes Mellitus, Renal Disease Additional Family Medical History / Comment(s): GLAUCOMA,NEUROPATHY HAD TRIPLE CABG, at 56yrs from renal disease. Mother Family Medical History: Hyperlipidemia Additional Family Medical History / Comment(s): DDD, HAD 3 vessel CABG AGE 54. General Exam Limitations: no limitations General appearance: alert, in no apparent distress Head exam: Present: atraumatic, normocephalic Eye exam: Present: normal appearance. Absent: scleral icterus, conjunctival injection ENT exam: Present: normal oropharynx Neck exam: Present: normal inspection Respiratory exam: Present: normal lung sounds bilaterally. Absent: respiratory distress, wheezes, rales, rhonchi, stridor, accessory muscle use Cardiovascular Exam: Present: normal rhythm, tachycardia (Rate 108 at my exam), normal heart sounds. Absent: systolic murmur, diastolic murmur, rubs, gallop GI/Abdominal exam: Present: soft. Absent: distended, tenderness, guarding, rebound, rigid, mass, pulsatile mass, hernia Extremities exam: Present: normal inspection, normal capillary refill. Absent: pedal edema, calf tenderness Back exam: Present: normal inspection, CVA tenderness (L). Absent: CVA tende rness (R) Neurological exam: Present: alert Skin exam: Present: warm, dry, intact, normal color. Absent: rash Course Vital Signs 12/02/23 12/02/23 12/02/23 18:58 20:02 22:00 Temperature 98.3 F 98.6 F Pulse Rate 120 H 118 H 104 H Respiratory 20 20 16 Rate Blood Pressure 133/83 139/96 125/94 O2 Sat by Pulse 99 100 97 Oximetry 12/02/23 12/02/23 22:36 23:30 Temperature Pulse Rate 100 99 Respiratory 19 18 Rate Blood Pressure 119/79 128/85 O2 Sat by Pulse 98 99 Oximetry Medical Decision Making - Medical Decision Making Was pt. sent in by a medical professional or institution (STUART Yeager, SENIOR ACCOUNTS PAYABLE CLERK, urgent care, hospital, or usp...) When possible be specific @ -[No] Did you speak to anyone other than the patient for history (EMS, parent, family, police, friend...)? What history was obtained from this source @ -[No] Did you review nursing and triage notes (agree or disagree)? Why? @ -[I reviewed and agree with nursing and triage notes] Were old charts reviewed (outside hosp., previous admission, EMS record, old EKG, old radiological studies, urgent care reports/EKG's, usp records)? Report findings @ -[No old charts were reviewed] Differential Diagnosis (chest pain, altered mental status, abdominal pain women, abdominal pain men, vaginal bleeding, weakness, fever, dyspnea, syncope, headache, dizziness, GI bleed, back pain, seizure, CVA, palpatations, mental health, musculoskeletal)? @ -[Differential Abdominal Pain Women: Appendicitis, Cholecystitis, diverticulosis, ischemic bowel, pancreatitis, hepatitis, UTI, gastroenteritis, AAA, incarcerated hernia, bowel obstruction, constipation, inflammatory bowel, hepatitis, peptic ulcer disease, splenic infarction, perforated viscus, vulvitis, ovarian torsion, PID, kidney stone, placenta abruption, this is not meant to be an all-inclusive list EKG interpreted by me (3pts min.). @ -[As above] X-rays interpreted by me (1pt min.). @ -[None done] CT interpreted by me (1pt min.). @ -[None done] U/S interpreted by me (1pt. min.). @ -[None done] What testing was considered but not performed or refused? (CT, X-rays, U/S, labs)? Why? @ -[CT scan is considered, but patient has had a number of these in the past and will attempt to limit radiation exposure. What meds were considered but not given or refused? Why? @ -[None] Did you discuss the management of the patient with other professionals (professionals i.e. , PA, SENIOR ACCOUNTS PAYABLE CLERK, lab, RT, psych nurse, high school social studies teacher, pcmh specialist, teacher, chief privacy officer, biodiesel division manager)? Give summary @ -[No] Was smoking cessation discussed for >3mins.? @ -[No] Was critical care preformed (if so, how long)? @ -[No] Were there social determinants of health that impacted care today? How? (Homelessness, low income, unemployed, alcoholism, drug addiction, transportation, low edu. Level, literacy, decrease access to med. care, group home, rehab)? @ -[No] Was there de-escalation of care discussed even if they declined (Discuss DNR or withdrawal of care, Hospice)? DNR status @ -[No] What co-morbidities impacted this encounter? (DM, HTN, Smoking, COPD, CAD, Cancer, CVA, ARF, Chemo, Hep., AIDS, mental health diagnosis, sleep apnea, morbid obesity)? @ -[Frequent kidney stone and previous ureter surgery Was patient admitted / discharged? Hospital course, mention meds given and rout e, prescriptions, significant lab abnormalities, going to OR and other pertinent info. @ -[This patient is 48-year-old woman with history of frequent stones who presents with pain that she states is identical to previous stones. Her initial workup shows labs that are more or less unchanged. The patient did have relief of symptoms with medication. She at this point stable to continue and have t reatment by her urologist as planned Undiagnosed new problem with uncertain prognosis? @ -[No] Drug Therapy requiring intensive monitoring for toxicity (Heparin, Nitro, Insulin, Cardizem)? @ -[No] Were any procedures done? @ -[No] Diagnosis/symptom? @ -[Acute renal colic Hematuria Acute, or Chronic, or Acute on Chronic? @ -[Acute Uncomplicated (without systemic symptoms) or Complicated (systemic symptoms)? @ -[Uncomplicated Side effects of treatment? @ -[No] Exacerbation, Progression, or Severe Exacerbation? @ -[No] Poses a threat to life or bodily function? How? (Chest pain, USA, ID, pneumonia, PE, COPD, DKA, ARF, appy, cholecystitis, CVA, Diverticulitis, Homicidal, Suicidal, threat to staff... and all critical care pts) @ -[Currently low risk - Lab Data Result diagrams: 12/02/23 20:01 12/02/23 20:01 Lab Results 12/02/23 12/02/23 12/02/23 Range/Units 20:01 20:01 20:01 WBC 14.4 H (3.8-10.6) k/uL RBC 4.86 (3.80-5.40) m/uL Hgb 14.6 (11.4-16.0) gm/dL Hct 42.4 (34.0-46.0) % MCV 87.3 (80.0-100.0) fL MCH 30.0 (25.0-35.0) pg MCHC 34.3 (31.0-37.0) g/dL RDW 12.2 (11.5-15.5) % Plt Count 299 (150-450) k/uL MPV 7.6 Neutrophils % 63 % Lymphocytes % 31 % Monocytes % 4 % Eosinophils % 1 % Basophils % 1 % Neutrophils # 9.1 H (1.3-7.7) k/uL Lymphocytes # 4.5 (1.0-4.8) k/uL Monocytes # 0.6 (0-1.0) k/uL Eosinophils # 0.1 (0-0.7) k/uL Basophils # 0.1 (0-0.2) k/uL Sodium 140 (137-145) mmol/L Potassium 3.2 L (3.5-5.1) mmol/L Chloride 110 H (98-107) mmol/L Carbon Dioxide 19 L (22-30) mmol/L Anion Gap 11 mmol/L BUN 6 L (7-17) mg/dL Creatinine 0.52 (0.52-1.04) mg/dL Est GFR (CKD-EPI)AfAm >90 (>60 ml/min/1.73 sqM) Est GFR (CKD-EPI)NonAf >90 (>60 ml/min/1.73 sqM) Glucose 121 H (74-99) mg/dL Lactic Ac Sepsis Rflx Plasma Lactic Acid Brant (0.7-2.0) mmol/L Calcium 9.5 (8.4-10.2) mg/dL Total Bilirubin 1.3 (0.2-1.3) mg/dL AST 24 (14-36) U/L ALT 18 (4-34) U/L Alkaline Phosphatase 74 (38-126) U/L C-Reactive Protein <0.5 (<1.0) mg/dL Total Protein 6.8 (6.3-8.2) g/dL Albumin 4.4 (3.5-5.0) g/dL Urine Color Light Red Urine Appearance Cloudy H (Clear) Urine pH 6.0 (5.0-8.0) Ur Specific [place] 1.018 (1.001-1.035) Urine Protein Trace H (Negative) Urine Glucose (UA) Negative (Negative) Urine Ketones Negative (Negative) Urine Blood Large H (Negative) Urine Nitrite Negative (Negative) Urine Bilirubin Negative (Negative) Urine Urobilinogen <2.0 (<2.0) mg/dL Ur Leukocyte Esterase Small H (Negative) Urine RBC >182 H (0-5) /hpf Urine WBC 24 H (0-5) /hpf Ur Squamous Epith Cells 6 H (0-4) /hpf Urine Bacteria Occasional H (None) /hpf Urine Mucus Occasional H (None) /hpf 12/02/23 12/02/23 Range/Units 20:01 20:47 WBC (3.8-10.6) k/uL RBC (3.80-5.40) m/uL Hgb (11.4-16.0) gm/dL Hct (34.0-46.0) % MCV (80.0-100.0) fL MCH (25.0-35.0) pg MCHC (31.0-37.0) g/dL RDW (11.5-15.5) % Plt Count (150-450) k/uL MPV Neutrophils % % Lymphocytes % % Monocytes % % Eosinophils % % Basophils % % Neutrophils # (1.3-7.7) k/uL Lymphocytes # (1.0-4.8) k/uL Monocytes # (0-1.0) k/uL Eosinophils # (0-0.7) k/uL Basophils # (0-0.2) k/uL Sodium (137-145) mmol/L Potassium (3.5-5.1) mmol/L Chloride (98-107) mmol/L Carbon Dioxide (22-30) mmol/L Anion Gap mmol/L BUN (7-17) mg/dL Creatinine (0.52-1.04) mg/dL Est GFR (CKD-EPI)AfAm (>60 ml/min/1.73 sqM) Est GFR (CKD-EPI)NonAf (>60 ml/min/1.73 sqM) Glucose (74-99) mg/dL Lactic Ac Sepsis Rflx Y Plasma Lactic Acid Brant 2.8 H* (0.7-2.0) mmol/L Calcium (8.4-10.2) mg/dL Total Bilirubin (0.2-1.3) mg/dL AST (14-36) U/L ALT (4-34) U/L Alkaline Phosphatase (38-126) U/L C-Reactive Protein (<1.0) mg/dL Total Protein (6.3-8.2) g/dL Albumin (3.5-5.0) g/dL Urine Color Urine Appearance (Clear) Urine pH (5.0-8.0) Ur Specific [place] (1.001-1.035) Urine Protein (Negative) Urine Glucose (UA) (Negative) Urine Ketones (Negative) Urine Blood (Negative) Urine Nitrite (Negative) Urine Bilirubin (Negative) Urine Urobilinogen (<2.0) mg/dL Ur Leukocyte Esterase (Negative) Urine RBC (0-5) /hpf Urine WBC (0-5) /hpf Ur Squamous Epith Cells (0-4) /hpf Urine Bacteria (None) /hpf Urine Mucus (None) /hpf Disposition Clinical Impression: Flank pain Disposition: HOME SELF-CARE Condition: Good Instructions (If sedation given, give patient instructions): Flank Pain (ED) Is patient prescribed a controlled substance at d/c from ED?: No Referrals: Rajiv Sexton MD [Primary Care Provider] - 1-2 days
[2023-12-02 20:03] VITALS: TEMP 98.6
[2023-12-02 20:33] LABS: Basophils # (A) 0.1 k/uL (0-0.2); Basophils % (A) 1 %; Eosinophils # (A) 0.1 k/uL (0-0.7); Eosinophils % (A) 1 %; HCT 42.4 % (34.0-46.0); HGB 14.6 gm/dL (11.4-16.0); Lymphocytes # (A) 4.5 k/uL (1.0-4.8); Lymphocytes % (A) 31 %; MCHC 34.3 g/dL (31.0-37.0); MCV 87.3 fL (80.0-100.0); Mean Platelet Volume 7.6; Monocytes # (A) 0.6 k/uL (0-1.0); Monocytes % (A) 4 %; Neutrophils # (A) 9.1 k/uL (1.3-7.7); Neutrophils % (A) 63 %; Platelet Count 299 k/uL (150-450); RBC 4.86 m/uL (3.80-5.40); RDW 12.2 % (11.5-15.5); WBC 14.4 k/uL (3.8-10.6)
[2023-12-02 20:44] LABS: Appearance,Urine Cloudy (Clear); Bacteria,Urine Occasional /hpf; Bilirubin,Urine Negative (Negative); Blood,Urine Large (Negative); Color,Urine Light Red; Glucose,Urine (UA) Negative (Negative); Ketones,Urine Negative (Negative); Leukocyte Esterase,Urine Small (Negative); Mucus,Urine Occasional /hpf; Nitrite,Urine Negative (Negative); Protein,Urine Trace (Negative); RBC,Urine >182 /hpf (0-5); Specific Gravity,Urine 1.018 (1.001-1.035); Squamous Epithelial Cell,Urine 6 /hpf (0-4); Urobilinogen,Urine <2.0 mg/dL (<2.0); WBC,Urine 24 /hpf (0-5)
[2023-12-02 20:52] LABS: ALT 18 U/L (4-34); AST 24 U/L (14-36); African American GFR (CKD) >90 (>60 ml/min/1.73 sqM); Albumin 4.4 g/dL (3.5-5.0); Alkaline Phosphatase 74 U/L (38-126); Anion Gap 11 mmol/L; Blood Urea Nitrogen 6 mg/dL (7-17); Calcium 9.5 mg/dL (8.4-10.2); Carbon Dioxide 19 mmol/L (22-30); Chloride 110 mmol/L (98-107); Glucose 121 mg/dL (74-99); Non-African American GFR(CKD) >90 (>60 ml/min/1.73 sqM); Potassium 3.2 mmol/L (3.5-5.1); Sodium 140 mmol/L (137-145); Total Bilirubin 1.3 mg/dL (0.2-1.3); Total Protein 6.8 g/dL (6.3-8.2)
[2023-12-02] MEDS: SODIUM CHLORIDE 0.9% 1,000 ML IV ONE (21:05)
[2023-12-02] MEDS: ONDANSETRON 4 MG/2 ML VIAL IVP STA (21:06)
[2023-12-02] MEDS: MORPHINE SULFATE 4 MG/ML SYRINGE IV STA (21:06)
[2023-12-02 21:18] LABS: C Reactive Protein <0.5 mg/dL (<1.0)
[2023-12-02] MEDS: HYDROmorphone 1 MG/ML 1 ML SYRINGE IVP STA (22:38)
[2023-12-02 23:31] VITALS: BP 128/85; PULSE 99; RESP 18
== END 2023-12-02 23:34 | disposition home or self-care (01) ==
LOC: EC 18:50
DX: N20.0 Calculus of kidney (principal); F17.200 Nicotine dependence, unspecified, uncomplicated; Z88.0 Allergy status to penicillin; Z88.1 Allergy status to other antibiotic agents; Z88.2 Allergy status to sulfonamides; Z88.8 Allergy status to other drugs, medicaments and biological substances; Z91.041 Radiographic dye allergy status; Z90.49 Acquired absence of other specified parts of digestive tract
CPT/HCPCS: 36415; 80053; 83605; 85025; 86140; 81001; 99284; 96374; 96375 ×2; 96361; J2270; J2405; J1170

== ENCOUNTER 2024-01-25 02:02 | Emergency (ER) | payer OTHER ==
[2024-01-25 02:05] VITALS: RESP 16; TEMP 98.2
[2024-01-25 02:44] LABS: Appearance,Urine Cloudy (Clear); Bacteria,Urine Rare /hpf; Bilirubin,Urine Negative (Negative); Blood,Urine Large (Negative); Budding Yeast,Urine Moderate /hpf; Calcium Oxalate Crystals,Urine Few /hpf; Color,Urine Light Red; Glucose,Urine (UA) Negative (Negative); Ketones,Urine Trace (Negative); Leukocyte Esterase,Urine Trace (Negative); Mucus,Urine Few /hpf; Nitrite,Urine Negative (Negative); PH, Urine 5.5 (5.0-8.0); Protein,Urine 1+ (Negative); RBC,Urine >182 /hpf (0-5); Specific Gravity,Urine 1.025 (1.001-1.035); Squamous Epithelial Cell,Urine 7 /hpf (0-4); Urobilinogen,Urine <2.0 mg/dL (<2.0); WBC,Urine 8 /hpf (0-5)
[2024-01-25] MEDS: KETOROLAC 15 MG/ML 1 ML VIAL IVP STA (03:49)
[2024-01-25] MEDS: HYDROmorphone 1 MG/ML 1 ML SYRINGE IVP STA (03:49)
[2024-01-25] MEDS: SODIUM CHLORIDE 0.9% 1,000 ML IV ONE (03:50)
--- NOTE | 2024-01-25 04:23 | ED ---
Back Pain HPI - General Chief Complaint: Back Pain/Injury Stated Complaint: Kidney stones Time Seen by Provider: 01/25/24 02:49 Source: patient Limitations: no limitations - History of Present Illness Initial Comments: 48-year-old female with history of kidney stones presenting with chief complaint of right-sided flank pain. She admits to hematuria. Feels similar to previous kidney stone related pain. Has been ongoing for 2 days. No fevers. She admits to nausea and vomiting. No dysuria. No weakness. - Related Data Home Medications Medication Instructions Recorded Confirmed oxyCODONE-APAP 10-325MG [Percocet 1 tab PO QID PRN 08/29/17 05/03/23 10-325 mg] PARoxetine HCL [Paxil] 40 mg PO DAILY 03/12/18 05/03/23 PARoxetine [Paxil] 20 mg PO DAILY 06/04/18 05/03/23 Loratadine 10 mg PO DAILY 04/21/20 05/03/23 Dextroamphetamine/Amphetamine 20 mg PO BID 12/07/21 05/03/23 [Dextroamp-Amphetamin 20 mg Tab] Multivitamins, Thera [Multivitamin 1 tab PO DAILY 12/07/21 05/03/23 (formulary)] SUMAtriptan succinate [Imitrex] 100 mg PO DAILY PRN 12/07/21 05/03/23 Atorvastatin [Lipitor] 40 mg PO DAILY 05/03/23 05/03/23 Cholecalciferol [Vitamin D3 (25 25 mcg PO DAILY 05/03/23 05/03/23 Mcg = 1000 Iu)] Cyanocobalamin (Vitamin B-12) 1,000 mcg PO DAILY 05/03/23 05/03/23 [Vitamin B-12] Tirzepatide [Mounjaro] 12.5 mg SQ WE 05/03/23 05/03/23 lisinopriL [Zestril] 10 mg PO DAILY 05/03/23 05/03/23 metFORMIN HCL 1,000 mg PO BID 05/03/23 05/03/23 Previous Rx's Medication Instructions Recorded Ondansetron Odt [Zofran Odt] 4 mg PO Q8HR PRN #20 tab 09/06/22 Cephalexin [Keflex] 500 mg PO Q6HR 7 Days #28 cap 09/27/23 Fluconazole 150 mg PO DIRECTED #2 tab 09/27/23 Tamsulosin [Flomax] 0.4 mg PO DAILY 14 Days #14 cap 11/26/23 Allergies Allergy/AdvReac Type Severity Reaction Status Date / Time bupropion HCl Allergy Rash/Hives Verified 01/25/24 02:04 [From Wellbutrin] divalproex sodium Allergy Unknown Verified 01/25/24 02:04 [From Depakote] fentanyl Allergy Swelling Verified 01/25/24 02:04 Iodinated Contrast Media Allergy Anaphylaxis Verified 01/25/24 02:04 [Iodinated Contrast Media - IV Dye] orange juice [Scurry] Allergy Rash/Hives Verified 01/25/24 02:04 Penicillins Allergy Rash/Hives/Gi Verified 01/25/24 02:04 Upset Sulfa (Sulfonamide Allergy Rash/Hives Verified 01/25/24 02:04 Antibiotics) sulfamethoxazole Allergy Rash/Hives Verified 01/25/24 02:04 [From Bactrim] trimethoprim [From Bactrim] Allergy Rash/Hives Verified 01/25/24 02:04 Review of Systems ROS Statement: Those systems with pertinent positive or pertinent negative responses have been documented in the HPI. ROS Other: All systems not noted in ROS Statement are negative. 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 History of Any Multi-Drug Resistant Organisms: ESBL Date of last positivie culture/infection: 05/14/17 MDRO Source:: ESBL URINE, Past Surgical History: Bladder Surgery, Section, Cholecystectomy, Hy sterectomy, Orthopedic Surgery, Tubal Ligation Additional Past Surgical History / Comment(s): R ovarian cystectomy, laparoscopic surgery for L ovary that had attached to the bowel, D&C, numerous lithotripsies, nephroscopies, cystoscopies and stents to ureters-none in place at this time, L robotic pyeloplasty with post op infection around kidney which then required a picc line/later removed (pt states was not MRSA), L rotator cuff repair, L wrist tendon surgery, colonoscopy. Kidney stone removal. Past Anesthesia/Blood Transfusion Reactions: Family History of Problems w/ Anesthesia Additional Past Anesthesia/Blood Transfusion Reaction / Comment(s): dad-hard time waking up due to enzyme problems in liver Past Psychological History: ADD/ADHD, Anxiety, Bipolar, Depression, PTSD Smoking Status: Current every day smoker Past Alcohol Use History: None Reported Past Drug Use History: None Reported - Past Family History Brother(s) Family Medical History: Cancer Additional Family Medical History / Comment(s): testicular Father Family Medical History: Coronary Artery Disease (CAD), CVA/TIA, Diabetes Mellitu s, Renal Disease Additional Family Medical History / Comment(s): GLAUCOMA,NEUROPATHY HAD TRIPLE CABG, at 56yrs from renal disease. Mother Family Medical History: Hyperlipidemia Additional Family Medical History / Comment(s): DDD, HAD 3 vessel CABG AGE 54. General Exam Limitations: no limitations General appearance: alert, in no apparent distress Head exam: Present: atraumatic, normocephalic Eye exam: Present: normal appearance, EOMI Neck exam: Present: normal inspection. Absent: meningismus Respiratory exam: Absent: respiratory distress Cardiovascular Exam: Present: regular rate Back exam: Present: CVA tenderness (R). Absent: CVA tenderness (L) Neurological exam: Present: alert, oriented X3 Psychiatric exam: Present: normal affect, normal mood Skin exam: Present: warm, dry Course Vital Signs 01/25/24 01/25/24 02:03 04:46 Temperature 98.2 F Pulse Rate 89 71 Respiratory 16 16 Rate Blood Pressure 132/84 126/84 O2 Sat by Pulse 98 99 Oximetry Medical Decision Making - Medical Decision Making Was pt. sent in by a medical professional or institution (, PA, SOLAR PHOTOVOLTAIC SYSTEMS ENGINEER, urgent care, hospital, or usp...) When possible be specific @ -No Did you speak to anyone other than the patient for history (EMS, parent, family, police, friend...)? What history was obtained from this source @ -No Did you review nursing and triage notes (agree or disagree)? Why? @ -I reviewed and agree with nursing and triage notes Were old charts reviewed (outside hosp., previous admission, EMS record, old EKG, old radiological studies, urgent care reports/EKG's, usp records)? Report findings @ -No old charts were reviewed Differential Diagnosis (chest pain, altered mental status, abdominal pain women, abdominal pain men, vaginal bleeding, weakness, fever, dyspnea, syncope, headache, dizziness, GI bleed, back pain, seizure, CVA, palpatations, mental health, musculoskeletal)? @ -[facility] Differential Abdominal Pain Women: Appendicitis, Cholecystitis, diverticulosis, ischemic bowel, pancreatitis, hepatitis, UTI, gastroenteritis, AAA, incarcerated hernia, bowel obstruction, constipation, inflammatory bowel, hepatitis, peptic ulcer disease, splenic infarction, perforated viscus, vulvitis, ovarian torsion, PID, kidney stone, placenta abruption... This is not meant to be an all-inclusive list EKG interpreted by me (3pts min.). @ -As above X-rays interpreted by me (1pt min.). @ -None done CT interpreted by me (1pt min.). @ -None done U/S interpreted by me (1pt. min.). @ -None done What testing was considered but not performed or refused? (CT, X-rays, U/S, labs)? Why? @ -CT or x-ray was considered, however given that the patient has known kidney stones do not believe this is necessary at this time What meds were considered but not given or refused? Why? @ -None Did you discuss the management of the patient with other professionals (professionals i.e. , PA, SOLAR PHOTOVOLTAIC SYSTEMS ENGINEER, lab, RT, psych nurse, child protective services social worker, aerial photogrammetrist, teacher, field artillery officer, nurse case manager)? Give summary @ -No Was smoking cessation discussed for >3mins.? @ -No Was critical care preformed (if so, how long)? @ -No Were there social determinants of health that impacted care today? How? (Homelessness, low income, unemployed, alcoholism, drug addiction, transportation, low edu. Level, literacy, decrease access to med. care, usp, rehab)? @ -No Was there de-escalation of care discussed even if they declined (Discuss DNR or withdrawal of care, Hospice)? DNR status @ -No What co-morbidities impacted this encounter? (DM, HTN, Smoking, COPD, CAD, Cancer, CVA, ARF, Chemo, Hep., AIDS, mental health diagnosis, sleep apnea, morbid obesity)? @ -None Was patient admitted / discharged? Hospital course, mention meds given and route, prescriptions, significant lab abnormalities, going to OR and other pertinent info. @ -48-year-old female presenting with chief complaint of flank pain and hematuria. History of kidney stones, states that this pain feels similar to previous kidney stones. Urine shows greater than 182 RBCs with 8 WBCs and 7 squamous cells. Given patient's history of kidney stones I do not think that further imaging is necessary, she has a urologist that she regularly follows with. She is provided with pain and nausea medication as well as IV fluids. On reassessment she reports improvement and feels ready to go home. Follow-up with PCP. Report back to ER with any new or worsening symptoms. Discussed return parameters and answered all questions. Patient conveyed verbal understanding and agreed to the plan. I discussed this case in detail with my attending Dr. Churchill Undiagnosed new problem with uncertain prognosis? @ -No Drug Therapy requiring intensive monitoring for toxicity (Heparin, Nitro, Insulin, Cardizem)? @ -No Were any procedures done? @ -No Diagnosis/symptom? @ -Kidney stone Acute, or Chronic, or Acute on Chronic? @ -Acute Uncomplicated (without systemic symptoms) or Complicated (systemic symptoms)? @ -Uncomplicated Side effects of treatment? @ -No Exacerbation, Progression, or Severe Exacerbation? @ -No Poses a threat to life or bodily function? How? (Chest pain, USA, SC, pneumonia, PE, COPD, DKA, ARF, appy, cholecystitis, CVA, Diverticulitis, Homicidal, Suicidal, threat to staff... and all critical care pts) @ -No - Lab Data Lab Results 01/25/24 Range/Units 02:14 Urine Color Light Red Urine Appearance Cloudy H (Clear) Urine pH 5.5 (5.0-8.0) Ur Specific [place] 1.025 (1.001-1.035) Urine Protein 1+ H (Negative) Urine Glucose (UA) Negative (Negative) Urine Ketones Trace H (Negative) Urine Blood Large H (Negative) Urine Nitrite Negative (Negative) Urine Bilirubin Negative (Negative) Urine Urobilinogen <2.0 (<2.0) mg/dL Ur Leukocyte Esterase Trace H (Negative) Urine RBC >182 H (0-5) /hpf Urine WBC 8 H (0-5) /hpf Ur Squamous Epith Cells 7 H (0-4) /hpf Calcium Oxalate Crystal Few H (None) /hpf Urine Bacteria Rare H (None) /hpf Urine Mucus Few H (None) /hpf Urine Yeast (Budding) Moderate H (None) /hpf Disposition Clinical Impression: Nephrolithiasis Disposition: HOME SELF-CARE Condition: Good Instructions (If sedation given, give patient instructions): Kidney Stones (ED) Additional Instructions: Follow-up with PCP. Report back to ER with any new or worsening symptoms. Is patient prescribed a controlled substance at d/c from ED?: No Referrals: Rajiv Sexton MD [Primary Care Provider] - 1-2 days Time of Disposition: 04:23
[2024-01-25] MEDS: HYDROmorphone 0.5 MG/0.5 ML SYRINGE IVP STA (04:45)
[2024-01-25 04:47] VITALS: BP 126/84; PULSE 71
== END 2024-01-25 04:47 | disposition home or self-care (01) ==
LOC: EC 02:02
DX: N20.0 Calculus of kidney (principal); F17.200 Nicotine dependence, unspecified, uncomplicated; Z91.041 Radiographic dye allergy status; Z88.8 Allergy status to other drugs, medicaments and biological substances; Z88.1 Allergy status to other antibiotic agents; Z88.0 Allergy status to penicillin; Z88.2 Allergy status to sulfonamides; Z91.018 Allergy to other foods
CPT/HCPCS: 81001; 99283; 96374; 96375; 96376; 96361; J1170 ×2; J1885

== ENCOUNTER 2024-01-31 04:50 | Emergency (ER) | payer OTHER ==
[2024-01-31] MEDS ORDERED: ONDANSETRON 4 MG/2 ML VIAL ONE (06:10)
[2024-01-31] MEDS ORDERED: KETOROLAC 15 MG/ML 1 ML VIAL ONE ×2 (06:10→07:05)
[2024-01-31] MEDS ORDERED: HYDROmorphone 1 MG/ML 1 ML SYRINGE ONE ×2 (06:10→07:05)
[2024-01-31] MEDS ORDERED: SODIUM CHLORIDE 0.9% 1,000 ML BAG ONE (06:20)
== END 2024-01-31 07:32 | disposition home or self-care (01) ==
LOC: EC 04:50
CPT/HCPCS: 81003; 96361; 96374; 96375; 96376; 99283

== ENCOUNTER 2024-02-11 00:55 | Emergency (ER) | payer OTHER ==
[2024-02-11] MEDS ORDERED: SODIUM CHLORIDE 0.9% 1,000 ML BAG ONE (03:10)
[2024-02-11] MEDS ORDERED: HYDROmorphone 1 MG/ML 1 ML SYRINGE ONE (03:19)
[2024-02-11] MEDS ORDERED: METOCLOPRAMIDE 5 MG/ML 2 ML VIAL ONE (03:20)
== END 2024-02-11 05:57 | disposition home or self-care (01) ==
LOC: EC 00:55
DX: N20.0 Calculus of kidney (principal)
CPT/HCPCS: 96374; 96375; 99283

== ENCOUNTER 2024-02-20 00:41 | Emergency (ER) | payer OTHER ==
[2024-02-20 00:52] VITALS: TEMP 98.2
--- NOTE | 2024-02-20 01:11 | ED ---
General Adult HPI - General Chief complaint: Urogenital Stated complaint: ABD Pain, Heart Palpitations Time Seen by Provider: 02/20/24 00:58 Source: patient, RN notes reviewed Mode of arrival: ambulatory Limitations: no limitations - History of Present Illness Initial comments: This is a 48-year-old female who presents to the emergency department for abd ominal pain and palpitations. Patient has a history of recurrent kidney stones and was supposed to have them removed last week. However, her aunt and she had to go on a trip to [place] with family for the and they cannot reschedule this until next week. Her pain has since continued to get much worse and she is also vomiting repetitively. Additionally, over the last 3 days she has developed palpitations that are becoming more frequent and intense. Does not believe she has any pain or shortness of breath with this. However, she does have a strong family history of cardiac issues and is very concerned about this. Denies any history of palpitations or cardiac symptoms in the past. - Related Data Home Medications Medication Instructions Recorded Confirmed oxyCODONE-APAP 10-325MG [Percocet 1 tab PO QID PRN 08/29/17 05/03/23 10-325 mg] PARoxetine HCL [Paxil] 40 mg PO DAILY 03/12/18 05/03/23 PARoxetine [Paxil] 20 mg PO DAILY 06/04/18 05/03/23 Loratadine 10 mg PO DAILY 04/21/20 05/03/23 Dextroamphetamine/Amphetamine 20 mg PO BID 12/07/21 05/03/23 [Dextroamp-Amphetamin 20 mg Tab] Multivitamins, Thera [Multivitamin 1 tab PO DAILY 12/07/21 05/03/23 (formulary)] SUMAtriptan succinate [Imitrex] 100 mg PO DAILY PRN 12/07/21 05/03/23 Atorvastatin [Lipitor] 40 mg PO DAILY 05/03/23 05/03/23 Cholecalciferol [Vitamin D3 (25 25 mcg PO DAILY 05/03/23 05/03/23 Mcg = 1000 Iu)] Cyanocobalamin (Vitamin B-12) 1,000 mcg PO DAILY 05/03/23 05/03/23 [Vitamin B-12] Tirzepatide [Mounjaro] 12.5 mg SQ WE 05/03/23 05/03/23 lisinopriL [Zestril] 10 mg PO DAILY 05/03/23 05/03/23 metFORMIN HCL 1,000 mg PO BID 05/03/23 05/03/23 Previous Rx's Medication Instructions Recorded Ondansetron Odt [Zofran Odt] 4 mg PO Q8HR PRN #20 tab 09/06/22 Cephalexin [Keflex] 500 mg PO Q6HR 7 Days #28 cap 09/27/23 Fluconazole 150 mg PO DIRECTED #2 tab 09/27/23 Tamsulosin [Flomax] 0.4 mg PO DAILY 14 Days #14 cap 11/26/23 Allergies Allergy/AdvReac Type Severity Reaction Status Date / Time bupropion HCl Allergy Rash/Hives Verified 02/20/24 00:53 [From Wellbutrin] divalproex sodium Allergy Unknown Verified 02/20/24 00:53 [From Depakote] fentanyl Allergy Swelling Verified 02/20/24 00:53 Iodinated Contrast Media Allergy Anaphylaxis Verified 02/20/24 00:53 [Iodinated Contrast Media - IV Dye] orange juice [[place]] Allergy Rash/Hives Verified 02/20/24 00:53 Penicillins Allergy Rash/Hives/Gi Verified 02/20/24 00:53 Upset Sulfa (Sulfonamide Allergy Rash/Hives Verified 02/20/24 00:53 Antibiotics) sulfamethoxazole Allergy Rash/Hives Verified 02/20/24 00:53 [From Bactrim] trimethoprim [From Bactrim] Allergy Rash/Hives Verified 02/20/24 00:53 Review of Systems ROS Statement: Those systems with pertinent positive or pertinent negative responses have been documented in the HPI. ROS Other: All systems not noted in ROS Statement are negative. 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 History of Any Multi-Drug Resistant Organisms: ESBL Date of last positivie culture/infection: 05/14/17 MDRO Source:: ESBL URINE, Past Surgical History: Bladder Surgery, Section, Cholecystectomy, Hysterectomy, Orthopedic Surgery, Tubal Ligation Additional Past Surgical History / Comment(s): R ovarian cystectomy, laparoscopic surgery for L ovary that had attached to the bowel, D&C, numerous lithotripsies, nephroscopies, cystoscopies and stents to ureters-none in place at this time, L robotic pyeloplasty with post op infection around kidney which then required a picc line/later removed (pt states was not MRSA), L rotator cuff repair, L wrist tendon surgery, colonoscopy. Kidney stone removal. Past Anesthesia/Blood Transfusion Reactions: Family History of Problems w/ Anes thesia Additional Past Anesthesia/Blood Transfusion Reaction / Comment(s): dad-hard time waking up due to enzyme problems in liver Past Psychological History: ADD/ADHD, Anxiety, Bipolar, Depression, PTSD Smoking Status: Current every day smoker Past Alcohol Use History: None Reported Past Drug Use History: None Reported - Past Family History Brother(s) Family Medical History: Cancer Additional Family Medical History / Comment(s): testicular Father Family Medical History: Coronary Artery Disease (CAD), CVA/TIA, Diabetes Mellitus, Renal Disease Additional Family Medical History / Comment(s): GLAUCOMA,NEUROPATHY HAD TRIPLE CABG, at 56yrs from renal disease. Mother Family Medical History: Hyperlipidemia Additional Family Medical History / Comment(s): DDD, HAD 3 vessel CABG AGE 54. General Exam Limitations: no limitations General appearance: alert, in no apparent distress Head exam: Present: atraumatic, normocephalic, normal inspection Respiratory exam: Present: normal lung sounds bilaterally. Absent: respiratory distress, wheezes, rales, rhonchi, stridor Cardiovascular Exam: Present: regular rate, normal rhythm, normal heart sounds. Absent: systolic murmur, diastolic murmur, rubs, gallop, clicks GI/Abdominal exam: Present: soft, tenderness (generalized), normal bowel sounds. Absent: distended Back exam: Present: CVA tenderness (R), CVA tenderness (L) Neurological exam: Present: alert, oriented X3, CN II-XII intact Psychiatric exam: Present: normal affect, normal mood Skin exam: Present: warm, dry, intact, normal color. Absent: rash Course Vital Signs 02/20/24 02/20/24 00:49 02:57 Temperature 98.2 F Pulse Rate 96 85 Respiratory 15 17 Rate Blood Pressure 124/84 129/82 O2 Sat by Pulse 97 100 Oximetry Medical Decision Making - Medical Decision Making This is a 48 year old female who presents to the emergency department for abdominal pain and palpitations. Was pt. sent in by a medical professional or institution? @ -No Did you speak to anyone other than the patient for history? @ -No Did you review nursing and triage notes? @ -Yes, and I agree, it is accurate with regards to the patient's symptoms. Were old charts reviewed? @ -No Differential Diagnosis? @ -Differential Palpitations: Ventricular arrhythmias, atrial arrhythmias, myocardial infarction, anemia, thyrotoxicosis, electrolyte imbalance, hypokalemia, pulmonary embolism, pulmonary disease, drugs, alcohol, anxiety, stress.... This is not meant to be an all-inclusive list. EKG interpreted by me (3pts min.)? @ -EKG interpreted by me demonstrating the following: Sinus rhythm. Ventricular rate 87 bpm, [place] interval 157 ms, QRS duration 89 ms, QTc 393 ms. X-rays interpreted by me (1pt min.)? @ -Chest x-ray obtained, my interpretation identifies no localized consolidations or infiltrates. CT interpreted by me (1pt min.)? @ -Not obtained U/S interpreted by me (1pt. min.)? @ -Not obtained What testing was considered but not performed? (CT, X-rays, U/S, labs)? Why? @ -None What meds were considered but not given? Why? @ -None Did you discuss the management of the patient with other professionals? @ -No Did you reconcile home meds? @ -No Was smoking cessation discussed for >3mins.? @ -I discussed smoking cessation for greater than 3 minutes. The risk of smoking were discussed with the patient including but not limited to risks of cancer, stroke, coronary artery disease and COPD. Also discussed with patient were multiple methods of quitting smoking. Lastly we discussed the financial cost of smoking. Was critical care preformed (if so, how long)? @ -No Were there social determinants of health that impacted care today? How? (Homelessness, low income, unemployed, alcoholism, drug addiction, transportation, low edu. Level, literacy, decrease access to med. care, penitentiary, rehab)? @ -No Was there de-escalation of care discussed even if they declined? (Discuss DNR or withdrawal of care, Hospice)? @ -No What co-morbidities impacted this encounter? (DM, HTN, Smoking, COPD, CAD, Cancer, CVA, Hep., AIDS, mental health diagnosis, sleep apnea, morbid obesity)? @ -Smoking Was patient admitted / discharged? @ -Discharged. Lab work demonstrates a slightly low magnesium of 1.5 and was otherwise unremarkable. 400 mg of magnesium oxide administered. Troponin and D-dimer negative. Chest x-ray reveals no acute process. Urinalysis demonstrates a large amount of blood consistent with patient's history of kidney stones, but is otherwise negative for signs of infection. Symptoms managed in the emergency department. Patient discharged home in stable condition and will follow-up with her urologist and primary care provider. Case discussed with ED attending Dr. Linda. Return precautions reviewed in depth, the patient is instructed to return to the emergency department with any new, worsening, or concerning symptoms. Patient verbalized understanding. Undiagnosed new problem with uncertain prognosis? @ -None Drug Therapy requiring intensive monitoring for toxicity (Heparin, Nitro, Insulin, Cardizem)? @ -None Were any procedures done? @ -None Diagnosis/symptom? @ -Palpitations, abdominal pain Acute, or Chronic, or Acute on Chronic? @ -Acute Uncomplicated (without systemic symptoms) or Complicated (systemic symptoms)? @ -Uncomplicated Side effects of treatment? @ -None Exacerbation, Progression, or Severe Exacerbation] @ -Not applicable Poses a threat to life or bodily function? @ -No - Lab Data Result diagrams: 02/20/24 01:19 02/20/24 01:19 Lab Results 02/20/24 02/20/24 02/20/24 Range/Units 00:57 01:19 01:19 WBC 9.9 (3.8-10.6) k/uL RBC 5.00 (3.80-5.40) m/uL Hgb 14.9 (11.4-16.0) gm/dL Hct 44.3 (34.0-46.0) % MCV 88.6 (80.0-100.0) fL MCH 29.9 (25.0-35.0) pg MCHC 33.7 (31.0-37.0) g/dL RDW 12.5 (11.5-15.5) % Plt Count 319 (150-450) k/uL MPV 7.4 PT 10.5 (10.0-12.5) sec INR 1.0 (<1.2) APTT 26.3 (22.0-30.0) sec D-Dimer 0.42 (<0.60) mg/L FEU Sodium (137-145) mmol/L Potassium (3.5-5.1) mmol/L Chloride (98-107) mmol/L Carbon Dioxide (22-30) mmol/L Anion Gap mmol/L BUN (7-17) mg/dL Creatinine (0.52-1.04) mg/dL Est GFR (CKD-EPI)AfAm (>60 ml/min/1.73 sqM) Est GFR (CKD-EPI)NonAf (>60 ml/min/1.73 sqM) Glucose (74-99) mg/dL Calcium (8.4-10.2) mg/dL Magnesium (1.6-2.3) mg/dL Total Bilirubin (0.2-1.3) mg/dL AST (14-36) U/L ALT (4-34) U/L Alkaline Phosphatase (38-126) U/L Troponin I (0.000-0.034) ng/mL Total Protein (6.3-8.2) g/dL Albumin (3.5-5.0) g/dL Urine Color Light Red Urine Appearance Cloudy H (Clear) Urine pH 5.5 (5.0-8.0) Ur Specific [place] 1.029 (1.001-1.035) Urine Protein 1+ H (Negative) Urine Glucose (UA) Negative (Negative) Urine Ketones Negative (Negative) Urine Blood Large H (Negative) Urine Nitrite Negative (Negative) Urine Bilirubin Negative (Negative) Urine Urobilinogen <2.0 (<2.0) mg/dL Ur Leukocyte Esterase Trace H (Negative) Urine RBC >182 H (0-5) /hpf Urine WBC 9 H (0-5) /hpf Ur Squamous Epith Cells 4 (0-4) /hpf Calcium Oxalate Crystal Moderate H (None) /hpf Urine Bacteria Rare H (None) /hpf Urine Mucus Few H (None) /hpf Urine Yeast (Bud[place]) Rare H (None) /hpf 02/20/24 02/20/24 Range/Units 01:19 01:19 WBC (3.8-10.6) k/uL RBC (3.80-5.40) m/uL Hgb (11.4-16.0) gm/dL Hct (34.0-46.0) % MCV (80.0-100.0) fL MCH (25.0-35.0) pg MCHC (31.0-37.0) g/dL RDW (11.5-15.5) % Plt Count (150-450) k/uL MPV PT (10.0-12.5) sec INR (<1.2) APTT (22.0-30.0) sec D-Dimer (<0.60) mg/L FEU Sodium 137 (137-145) mmol/L Potassium 3.8 (3.5-5.1) mmol/L Chloride 104 (98-107) mmol/L Carbon Dioxide 28 (22-30) mmol/L Anion Gap 5 mmol/L BUN 21 H (7-17) mg/dL Creatinine 0.65 (0.52-1.04) mg/dL Est GFR (CKD-EPI)AfAm >90 (>60 ml/min/1.73 sqM) Est GFR (CKD-EPI)NonAf >90 (>60 ml/min/1.73 sqM) Glucose 116 H (74-99) mg/dL Calcium 10.0 (8.4-10.2) mg/dL Magnesium 1.5 L (1.6-2.3) mg/dL Total Bilirubin 1.0 (0.2-1.3) mg/dL AST 25 (14-36) U/L ALT 18 (4-34) U/L Alkaline Phosphatase 76 (38-126) U/L Troponin I <0.012 (0.000-0.034) ng/mL Total Protein 7.3 (6.3-8.2) g/dL Albumin 4.7 (3.5-5.0) g/dL Urine Color Urine Appearance (Clear) Urine pH (5.0-8.0) Ur Specific [place] (1.001-1.035) Urine Protein (Negative) Urine Glucose (UA) (Negative) Urine Ketones (Negative) Urine Blood (Negative) Urine Nitrite (Negative) Urine Bilirubin (Negative) Urine Urobilinogen (<2.0) mg/dL Ur Leukocyte Esterase (Negative) Urine RBC (0-5) /hpf Urine WBC (0-5) /hpf Ur Squamous Epith Cells (0-4) /hpf Calcium Oxalate Crystal (None) /hpf Urine Bacteria (None) /hpf Urine Mucus (None) /hpf Urine Yeast (Budding) (None) /hpf - Radiology Data Radiology results: report reviewed, image reviewed Disposition Clinical Impression: Nicotine dependence, Palpitations, Kidney stones Disposition: HOME SELF-CARE Instructions (If sedation given, give patient instructions): Heart Palpitations (ED) Additional Instructions: Return to the emergency department with any new, worsening, or concerning symptoms. Follow up with your primary care provider and your urologist. Is patient prescribed a controlled substance at d/c from ED?: No Referrals: Rajiv Sexton MD [Primary Care Provider] - 1-2 days Time of Disposition: 03:10
[2024-02-20 01:39] LABS: Basophils # (A) 0.1 k/uL (0-0.2); Basophils % (A) 1 %; Eosinophils # (A) 0.2 k/uL (0-0.7); Eosinophils % (A) 2 %; HCT 44.3 % (34.0-46.0); HGB 14.9 gm/dL (11.4-16.0); Lymphocytes % (A) 51 %; MCH 29.9 pg (25.0-35.0); MCHC 33.7 g/dL (31.0-37.0); MCV 88.6 fL (80.0-100.0); Mean Platelet Volume 7.4; Monocytes # (A) 0.5 k/uL (0-1.0); Monocytes % (A) 5 %; Neutrophils # (A) 3.8 k/uL (1.3-7.7); Neutrophils % (A) 39 %; Platelet Count 319 k/uL (150-450); RDW 12.5 % (11.5-15.5); WBC 9.9 k/uL (3.8-10.6)
[2024-02-20] MEDS: HYDROmorphone 1 MG/ML 1 ML SYRINGE IVP STA ×2 (01:45→02:59)
[2024-02-20] MEDS: KETOROLAC 15 MG/ML 1 ML VIAL IVP STA ×2 (01:47→02:58)
[2024-02-20] MEDS: ONDANSETRON 4 MG/2 ML VIAL IVP STA (01:49)
[2024-02-20 01:50] LABS: ALT 18 U/L (4-34); AST 25 U/L (14-36); African American GFR (CKD) >90 (>60 ml/min/1.73 sqM); Albumin 4.7 g/dL (3.5-5.0); Alkaline Phosphatase 76 U/L (38-126); Anion Gap 5 mmol/L; Blood Urea Nitrogen 21 mg/dL (7-17); Carbon Dioxide 28 mmol/L (22-30); Chloride 104 mmol/L (98-107); Glucose 116 mg/dL (74-99); Magnesium 1.5 mg/dL (1.6-2.3); Non-African American GFR(CKD) >90 (>60 ml/min/1.73 sqM); Potassium 3.8 mmol/L (3.5-5.1); Sodium 137 mmol/L (137-145); Total Protein 7.3 g/dL (6.3-8.2)
[2024-02-20] MEDS: SODIUM CHLORIDE 0.9% 1,000 ML IV STA (02:02)
[2024-02-20] MEDS: MAGNESIUM OXIDE 400 MG TAB PO STA (02:27)
[2024-02-20 02:35] LABS: Partial Thromboplastin Time 26.3 sec (22.0-30.0); Prothrombin Time 10.5 sec (10.0-12.5)
[2024-02-20 02:36] LABS: Appearance,Urine Cloudy (Clear); Bacteria,Urine Rare /hpf; Bilirubin,Urine Negative (Negative); Blood,Urine Large (Negative); Budding Yeast,Urine Rare /hpf; Calcium Oxalate Crystals,Urine Moderate /hpf; Color,Urine Light Red; Glucose,Urine (UA) Negative (Negative); Ketones,Urine Negative (Negative); Leukocyte Esterase,Urine Trace (Negative); Mucus,Urine Few /hpf; Nitrite,Urine Negative (Negative); PH, Urine 5.5 (5.0-8.0); Protein,Urine 1+ (Negative); RBC,Urine >182 /hpf (0-5); Specific Gravity,Urine 1.029 (1.001-1.035); Squamous Epithelial Cell,Urine 4 /hpf (0-4); Urobilinogen,Urine <2.0 mg/dL (<2.0); WBC,Urine 9 /hpf (0-5)
[2024-02-20 02:58] VITALS: BP 129/82; PULSE 85; RESP 17
--- NOTE | 2024-02-20 03:35 | XR ---
EXAM: XR Chest, 2 Views CLINICAL HISTORY: ITS.REASON XR Reason: Palpitations TECHNIQUE: Frontal and lateral views of the chest. COMPARISON: No relevant prior studies available. FINDINGS: Lungs: No consolidation or mass. Pleural space: No effusion. Heart: No cardiomegaly. Bones/joints: No acute findings. IMPRESSION: No acute cardiopulmonary process.
== END 2024-02-20 03:25 | disposition home or self-care (01) ==
LOC: EC 00:41
CPT/HCPCS: 36415; 71046; 80053; 81001; 83735; 84484; 85025; 85379; 85610; 85730; 93005; 96361; 96374; 96375; 96376; 99285

== ENCOUNTER 2024-03-08 04:28 | Emergency (ER) | payer OTHER ==
[2024-03-08 04:47] VITALS: TEMP 97.9
[2024-03-08] MEDS: ONDANSETRON 4 MG/2 ML VIAL IVP STA (06:06)
[2024-03-08] MEDS: KETOROLAC 15 MG/ML 1 ML VIAL IVP STA ×2 (06:06→06:57)
[2024-03-08] MEDS: HYDROmorphone 1 MG/ML 1 ML SYRINGE IVP STA ×2 (06:07→06:56)
--- NOTE | 2024-03-08 06:24 | ED ---
Abdominal Pain HPI - General Chief Complaint: Abdominal Pain Stated Complaint: abd pain Time Seen by Provider: 03/08/24 06:00 Source: patient, RN notes reviewed Mode of arrival: ambulatory Limitations: no limitations - History of Present Illness Initial Comments: This is a 48-year-old female who presents to the emergency department for right flank pain. Patient has a history of recurrent kidney stones and states that she has had right flank pain acting up on her for the last few days. States that she was supposed to get her kidney stones removed a couple of weeks ago, however her provider had COVID and it had to be rescheduled. States that she is supposed to get them removed next week. She started to develop nausea and vomiting a couple of days ago as well. Patient is well-known to this emergency department for recurrent bouts of kidney stones and often presents for help with pain control. MD Complaint: abdominal pain, flank pain - Related Data Home Medications Medication Instructions Recorded Confirmed oxyCODONE-APAP 10-325MG [Percocet 1 tab PO QID PRN 08/29/17 05/03/23 10-325 mg] PARoxetine HCL [Paxil] 40 mg PO DAILY 03/12/18 05/03/23 PARoxetine [Paxil] 20 mg PO DAILY 06/04/18 05/03/23 Loratadine 10 mg PO DAILY 04/21/20 05/03/23 Dextroamphetamine/Amphetamine 20 mg PO BID 12/07/21 05/03/23 [Dextroamp-Amphetamin 20 mg Tab] Multivitamins, Thera [Multivitamin 1 tab PO DAILY 12/07/21 05/03/23 (formulary)] SUMAtriptan succinate [Imitrex] 100 mg PO DAILY PRN 12/07/21 05/03/23 Atorvastatin [Lipitor] 40 mg PO DAILY 05/03/23 05/03/23 Cholecalciferol [Vitamin D3 (25 25 mcg PO DAILY 05/03/23 05/03/23 Mcg = 1000 Iu)] Cyanocobalamin (Vitamin B-12) 1,000 mcg PO DAILY 05/03/23 05/03/23 [Vitamin B-12] Tirzepatide [Mounjaro] 12.5 mg SQ WE 05/03/23 05/03/23 lisinopriL [Zestril] 10 mg PO DAILY 05/03/23 05/03/23 metFORMIN HCL 1,000 mg PO BID 05/03/23 05/03/23 Previous Rx's Medication Instructions Recorded Ondansetron Odt [Zofran Odt] 4 mg PO Q8HR PRN #20 tab 09/06/22 Cephalexin [Keflex] 500 mg PO Q6HR 7 Days #28 cap 09/27/23 Fluconazole 150 mg PO DIRECTED #2 tab 09/27/23 Tamsulosin [Flomax] 0.4 mg PO DAILY 14 Days #14 cap 11/26/23 Allergies Allergy/AdvReac Type Severity Reaction Status Date / Time bupropion HCl Allergy Rash/Hives Verified 03/08/24 04:47 [From Wellbutrin] divalproex sodium Allergy Unknown Verified 03/08/24 04:47 [From Depakote] fentanyl Allergy Swelling Verified 03/08/24 04:47 Iodinated Contrast Media Allergy Anaphylaxis Verified 03/08/24 04:47 [Iodinated Contrast Media - IV Dye] orange juice [[place]] Allergy Rash/Hives Verified 03/08/24 04:47 Penicillins Allergy Rash/Hives/Gi Verified 03/08/24 04:47 Upset Sulfa (Sulfonamide Allergy Rash/Hives Verified 03/08/24 04:47 Antibiotics) sulfamethoxazole Allergy Rash/Hives Verified 03/08/24 04:47 [From Bactrim] trimethoprim [From Bactrim] Allergy Rash/Hives Verified 03/08/24 04:47 Review of Systems ROS Statement: Those systems with pertinent positive or pertinent negative responses have been documented in the HPI. ROS Other: All systems not noted in ROS Statement are negative. 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 History of Any Multi-Drug Resistant Organisms: ESBL Date of last positivie culture/infection: 05/14/17 MDRO Source:: ESBL URINE, Past Surgical History: Bladder Surgery, Section, Cholecystectomy, Hysterectomy, Orthopedic Surgery, Tubal Ligation Additional Past Surgical History / Comment(s): R ovarian cystectomy, laparoscopic surgery for L ovary that had attached to the bowel, D&C, numerous lithotripsies, nephroscopies, cystoscopies and stents to ureters-none in place at this time, L robotic pyeloplasty with post op infection around kidney which then required a picc line/later removed (pt states was not MRSA), L rotator cuff repair, L wrist tendon surgery, colonoscopy. Kidney stone removal. Past Anesthesia/Blood Transfusion Reactions: Family History of Problems w/ Anesthesia Additional Past Anesthesia/Blood Transfusion Reaction / Comment(s): dad-hard time waking up due to enzyme problems in liver Past Psychological History: ADD/ADHD, Anxiety, Bipolar, Depression, PTSD Smoking Status: Current every day smoker Past Alcohol Use History: None Reported Past Drug Use History: None Reported - Past Family History Brother(s) Family Medical History: Cancer Additional Family Medical History / Comment(s): testicular Father Family Medical History: Coronary Artery Disease (CAD), CVA/TIA, Diabetes Mellitus, Renal Disease Additional Family Medical History / Comment(s): GLAUCOMA,NEUROPATHY HAD TRIPLE CABG, at 56yrs from renal disease. Mother Family Medical History: Hyperlipidemia Additional Family Medical History / Comment(s): DDD, HAD 3 vessel CABG AGE 54. General Exam Limitations: no limitations General appearance: alert, in no apparent distress Head exam: Present: atraumatic, normocephalic, normal inspection Respiratory exam: Present: normal lung sounds bilaterally. Absent: respiratory distress, wheezes, rales, rhonchi, stridor Cardiovascular Exam: Present: regular rate, normal rhythm, normal heart sounds. Absent: systolic murmur, diastolic murmur, rubs, gallop, clicks GI/Abdominal exam: Present: soft, normal bowel sounds. Absent: distended, tenderness, guarding, rebound, rigid Back exam: Present: CVA tenderness (R). Absent: CVA tenderness (L) Neurological exam: Present: alert, oriented X3, CN II-XII intact Psychiatric exam: Present: normal affect, normal mood Skin exam: Present: warm, dry, intact, normal color. Absent: rash Course Vital Signs 03/08/24 03/08/24 04:45 05:59 Temperature 97.9 F Pulse Rate 74 87 Respiratory 18 16 Rate Blood Pressure 120/72 118/75 O2 Sat by Pulse 99 100 Oximetry Medical Decision Making - Medical Decision Making This is a 48 year old female who presents to the emergency department for flank pain. Was pt. sent in by a medical professional or institution? @ -No Did you speak to anyone other than the patient for history? @ -No Did you review nursing and triage notes? @ -Yes, and I agree, it is accurate with regards to the patient's symptoms. Were old charts reviewed? @ -No Differential Diagnosis? @ -Differential Flank Pain: UTI, pyelonephritis, kidney stone, musculoskeletal, pancreatitis, cholecystitis, this is not meant to be an all-inclusive list. EKG interpreted by me (3pts min.)? @ -Not obtained X-rays interpreted by me (1pt min.)? @ -Not obtained CT interpreted by me (1pt min.)? @ -Not obtained U/S interpreted by me (1pt. min.)? @ -Not obtained What testing was considered but not performed? (CT, X-rays, U/S, labs)? Why? @ -None What meds were considered but not given? Why? @ -None Did you discuss the management of the patient with other professionals? @ -No Did you reconcile home meds? @ -No Was smoking cessation discussed for >3mins.? @ -No Was critical care preformed (if so, how long)? @ -No Were there social determinants of health that impacted care today? How? (Homelessness, low income, unemployed, alcoholism, drug addiction, transportation, low edu. Level, literacy, decrease access to med. care, residential, rehab)? @ -No Was there de-escalation of care discussed even if they declined? (Discuss DNR or withdrawal of care, Hospice)? @ -No What co-morbidities impacted this encounter? (DM, HTN, Smoking, COPD, CAD, Cancer, CVA, Hep., AIDS, mental health diagnosis, sleep apnea, morbid obesity)? @ -Kidney stones Was patient admitted / discharged? @ -Discharged. Urinalysis demonstrates a large amount of blood but was not suggestive of infection. Urine sent for culture. Symptoms treated in the emergency department. Patient discharged home in stable condition. Case discussed with ED attending, Dr. Nelson. Return precautions reviewed in depth, the patient is instructed to return to the emergency department with any new, worsening, or concerning symptoms. Patient verbalized understanding. Undiagnosed new problem with uncertain prognosis? @ -None Drug Therapy requiring intensive monitoring for toxicity (Heparin, Nitro, Insulin, Cardizem)? @ -None Were any procedures done? @ -None Diagnosis/symptom? @ -Kidney stones, hematuria Acute, or Chronic, or Acute on Chronic? @ -Chronic Uncomplicated (without systemic symptoms) or Complicated (systemic symptoms)? @ -Uncomplicated Side effects of treatment? @ -None Exacerbation, Progression, or Severe Exacerbation] @ -Recurrence/exacerbation Poses a threat to life or bodily function? @ -The pain limits her ability to function to some extent. - Lab Data Lab Results 03/08/24 Range/Units 06:01 Urine Color Yellow Urine Appearance Cloudy H (Clear) Urine pH 6.5 (5.0-8.0) Ur Specific [place] 1.023 (1.001-1.035) Urine Protein Trace H (Negative) Urine Glucose (UA) Negative (Negative) Urine Ketones Negative (Negative) Urine Blood Large H (Negative) Urine Nitrite Negative (Negative) Urine Bilirubin Negative (Negative) Urine Urobilinogen 6.0 (<2.0) mg/dL Ur Leukocyte Esterase Large H (Negative) Urine RBC >182 H (0-5) /hpf Urine WBC 43 H (0-5) /hpf Ur Squamous Epith Cells 8 H (0-4) /hpf Calcium Oxalate Crystal Rare H (None) /hpf Urine Mucus Occasional H (None) /hpf Disposition Clinical Impression: Kidney stones Disposition: HOME SELF-CARE Instructions (If sedation given, give patient instructions): Kidney Stones (ED) Additional Instructions: Return to the emergency department with any new, worsening, or concerning symptoms. Follow up with your urologist. Is patient prescribed a controlled substance at d/c from ED?: No Referrals: Rajiv Sexton MD [Primary Care Provider] - 1-2 days Time of Disposition: 06:48
[2024-03-08 06:27] LABS: Appearance,Urine Cloudy (Clear); Bilirubin,Urine Negative (Negative); Blood,Urine Large (Negative); Calcium Oxalate Crystals,Urine Rare /hpf; Color,Urine Yellow; Glucose,Urine (UA) Negative (Negative); Ketones,Urine Negative (Negative); Leukocyte Esterase,Urine Large (Negative); Mucus,Urine Occasional /hpf; Nitrite,Urine Negative (Negative); PH, Urine 6.5 (5.0-8.0); Protein,Urine Trace (Negative); RBC,Urine >182 /hpf (0-5); Specific Gravity,Urine 1.023 (1.001-1.035); Squamous Epithelial Cell,Urine 8 /hpf (0-4); WBC,Urine 43 /hpf (0-5)
[2024-03-08 06:58] VITALS: BP 126/90; PULSE 84; RESP 18
== END 2024-03-08 07:43 | disposition home or self-care (01) ==
LOC: EC 04:28
DX: N20.0 Calculus of kidney (principal)
CPT/HCPCS: 81001; 87086; 96374; 96375; 96376; 99284

== ENCOUNTER 2024-04-07 03:27 | Emergency (ER) | payer OTHER ==
[2024-04-07 03:36] VITALS: TEMP 97.4
--- NOTE | 2024-04-07 04:01 | ED ---
Abdominal Pain HPI - General Chief Complaint: Abdominal Pain Stated Complaint: Kidney Stones Time Seen by Provider: 04/07/24 03:59 Source: patient, RN notes reviewed, old records reviewed Mode of arrival: ambulatory Limitations: no limitations - History of Present Illness Initial Comments: This is a 48-year-old female well-known to this emergency department coming in for evaluation of abdominal pain and flank pain and kidney stone pain history of kidney stones chronic kidney stone disease with nausea vomiting unable to take pain medication MD Complaint: abdominal pain, flank pain -: days(s) Location: diffuse, bilateral flank Radiation: bilateral flank Severity: moderate, severe Severity scale (1-10): 10 Quality: sharp Consistency: constant Improves With: nothing Worsens With: nothing Associated Symptoms: nausea, vomiting - Related Data Home Medications Medication Instructions Recorded Confirmed oxyCODONE-APAP 10-325MG [Percocet 1 tab PO QID PRN 08/29/17 05/03/23 10-325 mg] PARoxetine HCL [Paxil] 40 mg PO DAILY 03/12/18 05/03/23 PARoxetine [Paxil] 20 mg PO DAILY 06/04/18 05/03/23 Loratadine 10 mg PO DAILY 04/21/20 05/03/23 Dextroamphetamine/Amphetamine 20 mg PO BID 12/07/21 05/03/23 [Dextroamp-Amphetamin 20 mg Tab] Multivitamins, Thera [Multivitamin 1 tab PO DAILY 12/07/21 05/03/23 (formulary)] SUMAtriptan succinate [Imitrex] 100 mg PO DAILY PRN 12/07/21 05/03/23 Atorvastatin [Lipitor] 40 mg PO DAILY 05/03/23 05/03/23 Cholecalciferol [Vitamin D3 (25 25 mcg PO DAILY 05/03/23 05/03/23 Mcg = 1000 Iu)] Cyanocobalamin (Vitamin B-12) 1,000 mcg PO DAILY 05/03/23 05/03/23 [Vitamin B-12] Tirzepatide [Mounjaro] 12.5 mg SQ WE 05/03/23 05/03/23 lisinopriL [Zestril] 10 mg PO DAILY 05/03/23 05/03/23 metFORMIN HCL 1,000 mg PO BID 05/03/23 05/03/23 Previous Rx's Medication Instructions Recorded Ondansetron Odt [Zofran Odt] 4 mg PO Q8HR PRN #20 tab 09/06/22 Cephalexin [Keflex] 500 mg PO Q6HR 7 Days #28 cap 09/27/23 Fluconazole 150 mg PO DIRECTED #2 tab 09/27/23 Tamsulosin [Flomax] 0.4 mg PO DAILY 14 Days #14 cap 11/26/23 Allergies Allergy/AdvReac Type Severity Reaction Status Date / Time bupropion HCl Allergy Rash/Hives Verified 04/07/24 03:33 [From Wellbutrin] divalproex sodium Allergy Unknown Verified 04/07/24 03:33 [From Depakote] fentanyl Allergy Swelling Verified 04/07/24 03:33 Iodinated Contrast Media Allergy Anaphylaxis Verified 04/07/24 03:33 [Iodinated Contrast Media - IV Dye] orange juice [[place]] Allergy Rash/Hives Verified 04/07/24 03:33 Penicillins Allergy Rash/Hives/Gi Verified 04/07/24 03:33 Upset Sulfa (Sulfonamide Allergy Rash/Hives Verified 04/07/24 03:33 Antibiotics) sulfamethoxazole Allergy Rash/Hives Verified 04/07/24 03:33 [From Bactrim] trimethoprim [From Bactrim] Allergy Rash/Hives Verified 04/07/24 03:33 Review of Systems ROS Statement: Those systems with pertinent positive or pertinent negative responses have been documented in the HPI. ROS Other: All systems not noted in ROS Statement are negative. 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 History of Any Multi-Drug Resistant Organisms: ESBL Date of last positivie culture/infection: 05/14/17 MDRO Source:: ESBL URINE, Past Surgical History: Bladder Surgery, Section, Cholecystectomy, Hysterectomy, Orthopedic Surgery, Tubal Ligation Additional Past Surgical History / Comment(s): R ovarian cystectomy, laparoscopic surgery for L ovary that had attached to the bowel, D&C, numerous lithotripsies, nephroscopies, cystoscopies and stents to ureters-none in place at this time, L robotic pyeloplasty with post op infection around kidney which then required a picc line/later removed (pt states was not MRSA), L rotator cuff repair, L wrist tendon surgery, colonoscopy. Kidney stone removal. Past Anesthesia/Blood Transfusion Reactions: Family History of Problems w/ Anesthesia Additional Past Anesthesia/Blood Transfusion Reaction / Comment(s): dad-hard time waking up due to enzyme problems in liver Past Psychological History: ADD/ADHD, Anxiety, Bipolar, Depression, PTSD Smoking Status: Current every day smoker Past Alcohol Use History: None Reported Past Drug Use History: None Reported - Past Family History Brother(s) Family Medical History: Cancer Additional Family Medical History / Comment(s): testicular Father Family Medical History: Coronary Artery Disease (CAD), CVA/TIA, Diabetes Mellitus, Renal Disease Additional Family Medical History / Comment(s): GLAUCOMA,NEUROPATHY HAD TRIPLE CABG, at 56yrs from renal disease. Mother Family Medical History: Hyperlipidemia Additional Family Medical History / Comment(s): DDD, HAD 3 vessel CABG AGE 54. General Exam Limitations: no limitations General appearance: alert, in no apparent distress Head exam: Present: atraumatic, normocephalic, normal inspection Eye exam: Present: normal appearance, PERRL, EOMI. Absent: scleral icterus, conjunctival injection, periorbital swelling ENT exam: Present: normal exam, mucous membranes moist Neck exam: Present: normal inspection. Absent: tenderness, meningismus, lymphadenopathy Respiratory exam: Present: normal lung sounds bilaterally. Absent: respiratory distress, wheezes, rales, rhonchi, stridor Cardiovascular Exam: Present: regular rate, normal rhythm, normal heart sounds. Absent: systolic murmur, diastolic murmur, rubs, gallop, clicks GI/Abdominal exam: Present: soft, normal bowel sounds. Absent: distended, tenderness, guarding, rebound, rigid Extremities exam: Present: normal inspection, full ROM, normal capillary refill. Absent: tenderness, pedal edema, joint swelling, calf tenderness Back exam: Present: normal inspection Neurological exam: Present: alert, oriented X3, CN II-XII intact Psychiatric exam: Present: normal affect, normal mood Skin exam: Present: warm, dry, intact, normal color. Absent: rash Course Vital Signs 04/07/24 03:33 Temperature 97.4 F L Pulse Rate 92 Respiratory 20 Rate Blood Pressure 121/83 O2 Sat by Pulse 100 Oximetry - Reevaluation(s) Reevaluation #1: 04/07/24 04:44 Medical records reviewed Reevaluation #2: 04/07/24 04:44 Patient symptoms improved Reevaluation #3: 04/07/24 04:44 Informed of results questions answered Reevaluation #4: Was pt. sent in by a medical professional or institution (, [facility], [facility], urgent care, hospital, or prison...) When possible be specific @ -no Did you speak to anyone other than the patient for history (EMS, parent, family, police, friend...)? What history was obtained from this source @ -no Did you review nursing and triage notes (agree or disagree)? Why? @ -agree Are old charts reviewed (outside hosp., previous admission, EMS record, old EKG, old radiological studies, urgent care reports/EKG's, prison records)? Report findings @ -yes Differential Diagnosis (chest pain, altered mental status, abdominal pain women, abdominal pain men, vaginal bleeding, weakness, fever, dyspnea, syncope, headache, dizziness, GI bleed, back pain, seizure, CVA, palpatations, mental health, musculoskeletal)? @ -prior EKG interpreted by me (3pts min.). @ -yes X-rays interpreted by me (1pt min.). @ -yes negative for acute disease CT interpreted by me (1pt min.). @ -no U/S interpreted by me (1pt. min.). @ -no What testing was considered but not performed or refused? (CT, X-rays, U/S, labs)? Why? @ -none What meds were considered but not given or refused? Why? @ -none Did you discuss the management of the patient with other professionals (professionals i.e. [facility], [facility], lab, RT, psych nurse, director of social work, criminal defense lawyer, teacher, community reinvestment act officer, employment evaluator/case manager)? Give summary @ -no Was smoking cessation discussed for >3mins.? @ -no Was critical care preformed (if so, how long)? @ -no Were there social determinants of health that impacted care today? How? (Homelessness, low income, unemployed, alcoholism, drug addiction, transportat ion, low edu. Level, literacy, decrease access to med. care, nursing home, rehab)? @ -none Was there de-escalation of care discussed even if they declined (Discuss DNR or withdrawal of care, Hospice)? DNR status @ -no What co-morbidities impacted this encounter? (DM, HTN, Smoking, COPD, CAD, Cancer, CVA, ARF, Chemo, Hep., AIDS, mental health diagnosis, sleep apnea, morbid obesity)? @ -none Was patient admitted / discharged? Hospital course, mention meds given and route, prescriptions, significant lab abnormalities, going to OR and other pertinent info. @ - Undiagnosed new problem with uncertain prognosis? @ -no Drug Therapy requiring intensive monitoring for toxicity (Heparin, Nitro, Insulin, Cardizem)? @ -no Were any procedures done? @ -no Diagnosis/symptom? @ - Acute, or Chronic, or Acute on Chronic? @ -Acute Uncomplicated (without systemic symptoms) or Complicated (systemic symptoms)? @ -Complicated Side effects of treatment? @ -no Exacerbation, Progression, or Severe Exacerbation? @ -exacerbation Poses a threat to life or bodily function? How? (Chest pain, USA, NH, pneumonia, PE, COPD, DKA, ARF, appy, cholecystitis, CVA, Diverticulitis, Homicidal, Suicidal, threat to staff... and all critical care pts) @ -yes Reevaluation #5: Differential Abdominal Pain Men: Appendicitis, cholecystitis, diverticulosis, ischemic bowel, pancreatitis, hepatitis, UTI, gastroenteritis, AAA, incarcerated hernia, bowel obstruction, constipation, inflammatory bowel, hepatitis, peptic ulcer disease, splenic infarction, perforated viscus, testicular torsion, this is not meant to be an all-inclusive list Medical Decision Making - Medical Decision Making 48 female to ER for evaluation of abdominal pain chronic kidney stone pain. Patient pain controlled and can be discharged home - Lab Data Result diagrams: 04/07/24 04:01 04/07/24 04:01 Lab Results 04/07/24 04/07/24 04/07/24 Range/Units 04:01 04:01 04:01 WBC 9.5 (3.8-10.6) k/uL RBC 4.55 (3.80-5.40) m/uL Hgb 13.8 (11.4-16.0) gm/dL Hct 40.2 (34.0-46.0) % MCV 88.5 (80.0-100.0) fL MCH 30.4 (25.0-35.0) pg MCHC 34.3 (31.0-37.0) g/dL RDW 12.1 (11.5-15.5) % Plt Count 286 (150-450) k/uL MPV 6.9 Neutrophils % 42 % Lymphocytes % 49 % Monocytes % 4 % Eosinophils % 2 % Basophils % 1 % Neutrophils # 4.0 (1.3-7.7) k/uL Lymphocytes # 4.7 (1.0-4.8) k/uL Monocytes # 0.4 (0-1.0) k/uL Eosinophils # 0.2 (0-0.7) k/uL Basophils # 0.1 (0-0.2) k/uL Sodium 138 (137-145) mmol/L Potassium 3.8 (3.5-5.1) mmol/L Chloride 109 H (98-107) mmol/L Carbon Dioxide 22 (22-30) mmol/L Anion Gap 7 mmol/L BUN 13 (7-17) mg/dL Creatinine 0.59 (0.52-1.04) mg/dL Est GFR (CKD-EPI)AfAm >90 (>60 ml/min/1.73 sqM) Est GFR (CKD-EPI)NonAf >90 (>60 ml/min/1.73 sqM) Glucose 86 (74-99) mg/dL Calcium 9.4 (8.4-10.2) mg/dL Total Bilirubin 1.5 H (0.2-1.3) mg/dL AST 29 (14-36) U/L ALT 13 (4-34) U/L Alkaline Phosphatase 53 (38-126) U/L Total Protein 6.8 (6.3-8.2) g/dL Albumin 4.2 (3.5-5.0) g/dL Amylase 43 (30-110) U/L Lipase 53 (23-300) U/L Urine Color Yellow Urine Appearance Cloudy H (Clear) Urine pH 5.5 (5.0-8.0) Ur Specific [place] 1.031 (1.001-1.035) Urine Protein Trace H (Negative) Urine Glucose (UA) Negative (Negative) Urine Ketones Negative (Negative) Urine Blood Large H (Negative) Urine Nitrite Negative (Negative) Urine Bilirubin Negative (Negative) Urine Urobilinogen <2.0 (<2.0) mg/dL Ur Leukocyte Esterase Negative (Negative) Urine RBC >182 H (0-5) /hpf Urine WBC 2 (0-5) /hpf Ur Squamous Epith Cells 4 (0-4) /hpf Calcium Oxalate Crystal Occasional H (None) /hpf Urine Bacteria Rare H (None) /hpf Urine Mucus Many H (None) /hpf Disposition Clinical Impression: Left flank pain, chronic, Intractable pain, Abdominal pain Disposition: HOME SELF-CARE Instructions (If sedation given, give patient instructions): Abdominal Pain (ED) Is patient prescribed a controlled substance at d/c from ED?: No Referrals: Rajiv Sexton MD [Primary Care Provider] - 1-2 days Time of Disposition: 05:00
[2024-04-07] MEDS: ONDANSETRON 4 MG/2 ML VIAL IVP STA (04:07)
[2024-04-07] MEDS: KETOROLAC 15 MG/ML 1 ML VIAL IVP STA (04:07)
[2024-04-07] MEDS: PROCHLORPERAZINE INJ 10 MG/2 ML VIAL IVP STA (04:07)
[2024-04-07] MEDS: diphenhydrAMINE 50 MG/ML 1 ML VIAL IVP STA (04:07)
[2024-04-07] MEDS: SODIUM CHLORIDE 0.9% 2,000 ML IV STA (04:07)
[2024-04-07] MEDS: HYDROmorphone 1 MG/ML 1 ML SYRINGE IVP STA (04:10)
[2024-04-07 04:11] LABS: Basophils # (A) 0.1 k/uL (0-0.2); Basophils % (A) 1 %; Eosinophils # (A) 0.2 k/uL (0-0.7); Eosinophils % (A) 2 %; HCT 40.2 % (34.0-46.0); HGB 13.8 gm/dL (11.4-16.0); Lymphocytes # (A) 4.7 k/uL (1.0-4.8); Lymphocytes % (A) 49 %; MCH 30.4 pg (25.0-35.0); MCHC 34.3 g/dL (31.0-37.0); MCV 88.5 fL (80.0-100.0); Mean Platelet Volume 6.9; Monocytes # (A) 0.4 k/uL (0-1.0); Monocytes % (A) 4 %; Neutrophils % (A) 42 %; Platelet Count 286 k/uL (150-450); RBC 4.55 m/uL (3.80-5.40); RDW 12.1 % (11.5-15.5); WBC 9.5 k/uL (3.8-10.6)
[2024-04-07 04:31] LABS: ALT 13 U/L (4-34); African American GFR (CKD) >90 (>60 ml/min/1.73 sqM); Albumin 4.2 g/dL (3.5-5.0); Amylase 43 U/L (30-110); Anion Gap 7 mmol/L; Blood Urea Nitrogen 13 mg/dL (7-17); Calcium 9.4 mg/dL (8.4-10.2); Carbon Dioxide 22 mmol/L (22-30); Chloride 109 mmol/L (98-107); Glucose 86 mg/dL (74-99); Lipase 53 U/L (23-300); Non-African American GFR(CKD) >90 (>60 ml/min/1.73 sqM); Sodium 138 mmol/L (137-145); Total Bilirubin 1.5 mg/dL (0.2-1.3); Total Protein 6.8 g/dL (6.3-8.2)
[2024-04-07 04:32] LABS: AST 29 U/L (14-36); Alkaline Phosphatase 53 U/L (38-126); Potassium 3.8 mmol/L (3.5-5.1)
[2024-04-07 04:38] LABS: Appearance,Urine Cloudy (Clear); Bacteria,Urine Rare /hpf; Bilirubin,Urine Negative (Negative); Blood,Urine Large (Negative); Calcium Oxalate Crystals,Urine Occasional /hpf; Color,Urine Yellow; Glucose,Urine (UA) Negative (Negative); Ketones,Urine Negative (Negative); Leukocyte Esterase,Urine Negative (Negative); Mucus,Urine Many /hpf; Nitrite,Urine Negative (Negative); PH, Urine 5.5 (5.0-8.0); Protein,Urine Trace (Negative); RBC,Urine >182 /hpf (0-5); Specific Gravity,Urine 1.031 (1.001-1.035); Squamous Epithelial Cell,Urine 4 /hpf (0-4); Urobilinogen,Urine <2.0 mg/dL (<2.0); WBC,Urine 2 /hpf (0-5)
[2024-04-07 04:56] VITALS: BP 117/74; PULSE 82; RESP 16
== END 2024-04-07 04:56 | disposition home or self-care (01) ==
LOC: EC 03:27
CPT/HCPCS: 36415; 80053; 81001; 82150; 83690; 85025; 96361; 96374; 96375; 99284

== ENCOUNTER 2024-04-13 01:20 | Emergency (ER) | payer OTHER ==
[2024-04-13 01:23] VITALS: TEMP 98.6
--- NOTE | 2024-04-13 01:33 | ED ---
Abdominal Pain HPI - General Source: patient Mode of arrival: ambulatory Limitations: no limitations <Lico Man - Last Filed: 04/13/24 01:32> <Rafat Churchill - Last Filed: 04/13/24 05:45> - General Chief Complaint: Abdominal Pain Stated Complaint: ABD Pain Time Seen by Provider: 04/13/24 01:33 - History of Present Illness Initial Comments: 48-year-old female well-known to our ER presenting with chief complaint of left flank pain. Known history of kidney stones. Admits to pressure when urinating. No dysuria. No fever. Admits to nausea and vomiting. (Lico Man) - Related Data Home Medications Medication Instructions Recorded Confirmed oxyCODONE-APAP 10-325MG [Percocet 1 tab PO QID PRN 08/29/17 05/03/23 10-325 mg] PARoxetine HCL [Paxil] 40 mg PO DAILY 03/12/18 05/03/23 PARoxetine [Paxil] 20 mg PO DAILY 06/04/18 05/03/23 Loratadine 10 mg PO DAILY 04/21/20 05/03/23 Dextroamphetamine/Amphetamine 20 mg PO BID 12/07/21 05/03/23 [Dextroamp-Amphetamin 20 mg Tab] Multivitamins, Thera [Multivitamin 1 tab PO DAILY 12/07/21 05/03/23 (formulary)] SUMAtriptan succinate [Imitrex] 100 mg PO DAILY PRN 12/07/21 05/03/23 Atorvastatin [Lipitor] 40 mg PO DAILY 05/03/23 05/03/23 Cholecalciferol [Vitamin D3 (25 25 mcg PO DAILY 05/03/23 05/03/23 Mcg = 1000 Iu)] Cyanocobalamin (Vitamin B-12) 1,000 mcg PO DAILY 05/03/23 05/03/23 [Vitamin B-12] Tirzepatide [Mounjaro] 12.5 mg SQ WE 05/03/23 05/03/23 lisinopriL [Zestril] 10 mg PO DAILY 05/03/23 05/03/23 metFORMIN HCL 1,000 mg PO BID 05/03/23 05/03/23 Previous Rx's Medication Instructions Recorded Ondansetron Odt [Zofran Odt] 4 mg PO Q8HR PRN #20 tab 09/06/22 Cephalexin [Keflex] 500 mg PO Q6HR 7 Days #28 cap 09/27/23 Fluconazole 150 mg PO DIRECTED #2 tab 09/27/23 Tamsulosin [Flomax] 0.4 mg PO DAILY 14 Days #14 cap 11/26/23 Allergies Allergy/AdvReac Type Severity Reaction Status Date / Time bupropion HCl Allergy Rash/Hives Verified 04/13/24 01:23 [From Wellbutrin] divalproex sodium Allergy Unknown Verified 04/13/24 01:23 [From Depakote] fentanyl Allergy Swelling Verified 04/13/24 01:23 Iodinated Contrast Media Allergy Anaphylaxis Verified 04/13/24 01:23 [Iodinated Contrast Media - IV Dye] orange juice [[place]] Allergy Rash/Hives Verified 04/13/24 01:23 Penicillins Allergy Rash/Hives/Gi Verified 04/13/24 01:23 Upset Sulfa (Sulfonamide Allergy Rash/Hives Verified 04/13/24 01:23 Antibiotics) sulfamethoxazole Allergy Rash/Hives Verified 04/13/24 01:23 [From Bactrim] trimethoprim [From Bactrim] Allergy Rash/Hives Verified 04/13/24 01:23 Review of Systems ROS Other: All systems not noted in ROS Statement are negative. <Lico Man - Last Filed: 04/13/24 01:32> ROS Other: All systems not noted in ROS Statement are negative. <Rafat Churchill - Last Filed: 04/13/24 05:45> ROS Statement: Those systems with pertinent positive or pertinent negative responses have been documented in the HPI. 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 History of Any Multi-Drug Resistant Organisms: ESBL Date of last positivie culture/infection: 05/14/17 MDRO Source:: ESBL URINE, Past Surgical History: Bladder Surgery, Section, Cholecystectomy, Hysterectomy, Orthopedic Surgery, Tubal Ligation Additional Past Surgical History / Comment(s): R ovarian cystectomy, laparoscopic surgery for L ovary that had attached to the bowel, D&C, numerous lithotripsies, nephroscopies, cystoscopies and stents to ureters-none in place at this time, L robotic pyeloplasty with post op infection around kidney which then required a picc line/later removed (pt states was not MRSA), L rotator cuff repair, L wrist tendon surgery, colonoscopy. Kidney stone removal. Past Anesthesia/Blood Transfusion Reactions: Family History of Problems w/ Anesthesia Additional Past Anesthesia/Blood Transfusion Reaction / Comment(s): dad-hard time waking up due to enzyme problems in liver Past Psychological History: ADD/ADHD, Anxiety, Bipolar, Depression, PTSD Smoking Status: Current every day smoker Past Alcohol Use History: None Reported Past Drug Use History: None Reported - Past Family History Brother(s) Family Medical History: Cancer Additional Family Medical History / Comment(s): testicular Father Family Medical History: Coronary Artery Disease (CAD), CVA/TIA, Diabetes Mellitus, Renal Disease Additional Family Medical History / Comment(s): GLAUCOMA,NEUROPATHY HAD TRIPLE CABG, at 56yrs from renal disease. Mother Family Medical History: Hyperlipidemia Additional Family Medical History / Comment(s): DDD, HAD 3 vessel CABG AGE 54. <Lico Man - Last Filed: 04/13/24 01:32> General Exam Limitations: no limitations <Lico Man - Last Filed: 04/13/24 01:32> - General Exam Comments Initial Comments: Visual Physical Exam Vital signs reviewed General: Well-appearing, nontoxic, no acute distress. Head: Normocephalic, atraumatic Eyes: PERRLA, EOMI ENT: Airway patent Chest: Nonlabored breathing Skin: No visual rash, normal skin tone Neuro: Alert and oriented 3 Musculoskeletal: No gross abnormalities (Lico Man) Course Vital Signs 04/13/24 01:22 Temperature 98.6 F Pulse Rate 106 H Respiratory 18 Rate Blood Pressure 139/91 O2 Sat by Pulse 98 Oximetry Medical Decision Making <Lico Man - Last Filed: 04/13/24 01:32> - Medical Decision Making I performed the quick note portion of this visit, electronically signed Lico Man PA-C (Lico Man) - Lab Data Lab Results 04/13/24 Range/Units 01:50 Urine Color Yellow Urine Appearance Cloudy H (Clear) Urine pH 5.5 (5.0-8.0) Ur Specific [place] 1.028 (1.001-1.035) Urine Protein Trace H (Negative) Urine Glucose (UA) Negative (Negative) Urine Ketones Negative (Negative) Urine Blood Large H (Negative) Urine Nitrite Negative (Negative) Urine Bilirubin Negative (Negative) Urine Urobilinogen 2.0 (<2.0) mg/dL Ur Leukocyte Esterase Trace H (Negative) Urine RBC >182 H (0-5) /hpf Urine WBC 5 (0-5) /hpf Ur Squamous Epith Cells 6 H (0-4) /hpf Urine Mucus Many H (None) /hpf Urine Yeast (Budding) Few H (None) /hpf Disposition <Lico Man - Last Filed: 04/13/24 01:32> Is patient prescribed a controlled substance at d/c from ED?: No <Rafat Churchill - Last Filed: 04/13/24 05:45> Clinical Impression: Flank pain Disposition: HOME SELF-CARE Condition: Fair Instructions (If sedation given, give patient instructions): Kidney Stones (ED) Referrals: Rajiv Sexton MD [Primary Care Provider] - 1-2 days
[2024-04-13] MEDS: ONDANSETRON ODT 4 MG TAB PO STA (03:54)
[2024-04-13] MEDS: KETOROLAC 15 MG/ML 1 ML VIAL IM STA (03:55)
[2024-04-13 03:56] LABS: Appearance,Urine Cloudy (Clear); Bilirubin,Urine Negative (Negative); Blood,Urine Large (Negative); Budding Yeast,Urine Few /hpf; Color,Urine Yellow; Glucose,Urine (UA) Negative (Negative); Ketones,Urine Negative (Negative); Leukocyte Esterase,Urine Trace (Negative); Mucus,Urine Many /hpf; Nitrite,Urine Negative (Negative); PH, Urine 5.5 (5.0-8.0); Protein,Urine Trace (Negative); RBC,Urine >182 /hpf (0-5); Specific Gravity,Urine 1.028 (1.001-1.035); Squamous Epithelial Cell,Urine 6 /hpf (0-4); WBC,Urine 5 /hpf (0-5)
[2024-04-13 06:03] VITALS: BP 134/85; PULSE 87; RESP 17
[2024-04-13] MEDS: MORPHINE SULFATE 4 MG/ML SYRINGE IM STA (06:04)
== END 2024-04-13 06:08 | disposition home or self-care (01) ==
LOC: EC 01:20
CPT/HCPCS: 81001

== ENCOUNTER 2024-04-15 00:08 | Emergency (ER) | payer OTHER ==
[2024-04-15 00:15] VITALS: RESP 18; TEMP 97.6
--- NOTE | 2024-04-15 00:31 | ED ---
General Adult HPI - General Chief complaint: Back Pain/Injury Stated complaint: Abd pain Time Seen by Provider: 04/15/24 00:16 Source: patient, RN notes reviewed Mode of arrival: ambulatory Limitations: no limitations - History of Present Illness Initial comments: 48-year-old female presents emergency department complaint of flank pain. Patient states she has chronic flank pain from multiple kidney stones. Patient is scheduled see urologist on Sunday. Patient was seen here 2 days ago for similar complaints. Patient states that she is out of her nausea medication. Patient offers no complaints of fevers chills chest pain shortness of breath no other complaints. - Related Data Home Medications Medication Instructions Recorded Confirmed oxyCODONE-APAP 10-325MG [Percocet 1 tab PO QID PRN 08/29/17 05/03/23 10-325 mg] PARoxetine HCL [Paxil] 40 mg PO DAILY 03/12/18 05/03/23 PARoxetine [Paxil] 20 mg PO DAILY 06/04/18 05/03/23 Loratadine 10 mg PO DAILY 04/21/20 05/03/23 Dextroamphetamine/Amphetamine 20 mg PO BID 12/07/21 05/03/23 [Dextroamp-Amphetamin 20 mg Tab] Multivitamins, Thera [Multivitamin 1 tab PO DAILY 12/07/21 05/03/23 (formulary)] SUMAtriptan succinate [Imitrex] 100 mg PO DAILY PRN 12/07/21 05/03/23 Atorvastatin [Lipitor] 40 mg PO DAILY 05/03/23 05/03/23 Cholecalciferol [Vitamin D3 (25 25 mcg PO DAILY 05/03/23 05/03/23 Mcg = 1000 Iu)] Cyanocobalamin (Vitamin B-12) 1,000 mcg PO DAILY 05/03/23 05/03/23 [Vitamin B-12] Tirzepatide [Mounjaro] 12.5 mg SQ WE 05/03/23 05/03/23 lisinopriL [Zestril] 10 mg PO DAILY 05/03/23 05/03/23 metFORMIN HCL 1,000 mg PO BID 05/03/23 05/03/23 Previous Rx's Medication Instructions Recorded Ondansetron Odt [Zofran Odt] 4 mg PO Q8HR PRN #20 tab 09/06/22 Cephalexin [Keflex] 500 mg PO Q6HR 7 Days #28 cap 09/27/23 Fluconazole 150 mg PO DIRECTED #2 tab 09/27/23 Tamsulosin [Flomax] 0.4 mg PO DAILY 14 Days #14 cap 11/26/23 Prochlorperazine [Compazine] 10 mg PO Q8H #14 tab 04/15/24 Allergies Allergy/AdvReac Type Severity Reaction Status Date / Time bupropion HCl Allergy Rash/Hives Verified 04/15/24 00:15 [From Wellbutrin] divalproex sodium Allergy Unknown Verified 04/15/24 00:15 [From Depakote] fentanyl Allergy Swelling Verified 04/15/24 00:15 Iodinated Contrast Media Allergy Anaphylaxis Verified 04/15/24 00:15 [Iodinated Contrast Media - IV Dye] orange juice [Divide] Allergy Rash/Hives Verified 04/15/24 00:15 Penicillins Allergy Rash/Hives/Gi Verified 04/15/24 00:15 Upset Sulfa (Sulfonamide Allergy Rash/Hives Verified 04/15/24 00:15 Antibiotics) sulfamethoxazole Allergy Rash/Hives Verified 04/15/24 00:15 [From Bactrim] trimethoprim [From Bactrim] Allergy Rash/Hives Verified 04/15/24 00:15 Review of Systems ROS Statement: Those systems with pertinent positive or pertinent negative responses have been documented in the HPI. ROS Other: All systems not noted in ROS Statement are negative. 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 History of Any Multi-Drug Resistant Organisms: ESBL Date of last positivie culture/infection: 05/14/17 MDRO Source:: ESBL URINE, Past Surgical History: Bladder Surgery, Section, Cholecystectomy, Hysterectomy, Orthopedic Surgery, Tubal Ligation Additional Past Surgical History / Comment(s): R ovarian cystectomy, laparoscopic surgery for L ovary that had attached to the bowel, D&C, numerous lithotripsies, nephroscopies, cystoscopies and stents to ureters-none in place at this time, L robotic pyeloplasty with post op infection around kidney which then required a picc line/later removed (pt states was not MRSA), L rotator cuff repair, L wrist tendon surgery, colonoscopy. Kidney stone removal. Past Anesthesia/Blood Transfusion Reactions: Family History of Problems w/ Anesthesia Additional Past Anesthesia/Blood Transfusion Reaction / Comment(s): dad-hard time waking up due to enzyme problems in liver Past Psychological History: ADD/ADHD, Anxiety, Bipolar, Depression, PTSD Smoking Status: Current every day smoker Past Alcohol Use History: None Reported Past Drug Use History: None Reported - Past Family History Brother(s) Family Medical History: Cancer Additional Family Medical History / Comment(s): testicular Father Family Medical History: Coronary Artery Disease (CAD), CVA/TIA, Diabetes Mellitus, Renal Disease Additional Family Medical History / Comment(s): GLAUCOMA,NEUROPATHY HAD TRIPLE CABG, at 56yrs from renal disease. Mother Family Medical History: Hyperlipidemia Additional Family Medical History / Comment(s): DDD, HAD 3 vessel CABG AGE 54. General Exam Limitations: no limitations General appearance: alert, in no apparent distress Head exam: Present: atraumatic, normocephalic, normal inspection Respiratory exam: Present: normal lung sounds bilaterally. Absent: respiratory distress, wheezes, rales, rhonchi, stridor Cardiovascular Exam: Present: regular rate, normal rhythm, normal heart sounds. Absent: systolic murmur, diastolic murmur, rubs, gallop, clicks GI/Abdominal exam: Present: soft, normal bowel sounds. Absent: distended, tenderness, guarding, rebound, rigid Back exam: Present: full ROM, tenderness Course Vital Signs 04/15/24 00:13 Temperature 97.6 F Pulse Rate 87 Respiratory 18 Rate Blood Pressure 137/91 O2 Sat by Pulse 98 Oximetry Medical Decision Making - Medical Decision Making Was pt. sent in by a medical professional or institution (, PA, TREE EXPERT, urgent care, hospital, or [facility]...) When possible be specific @ -No Did you speak to anyone other than the patient for history (EMS, parent, family, police, friend...)? What history was obtained from this source @ -No Did you review nursing and triage notes (agree or disagree)? Why? @ -I reviewed and agree with nursing and triage notes Were old charts reviewed (outside hosp., previous admission, EMS record, old EKG, old radiological studies, urgent care reports/EKG's, [facility] records)? Report findings @ -Reviewed recent urinalysis 2 days ago Differential Diagnosis (chest pain, altered mental status, abdominal pain women, abdominal pain men, vaginal bleeding, weakness, fever, dyspnea, syncope, headache, dizziness, GI bleed, back pain, seizure, CVA, palpatations, mental health, musculoskeletal)? @ -Differential Abdominal Pain Women: Appendicitis, Cholecystitis, diverticulosis, ischemic bowel, pancreatitis, hepatitis, UTI, gastroenteritis, AAA, incarcerated hernia, bowel obstruction, constipation, inflammatory bowel, hepatitis, peptic ulcer disease, splenic infarction, perforated viscus, vulvitis, ovarian torsion, PID, kidney stone, placenta abruption, this is not meant to be an all-inclusive list EKG interpreted by me (3pts min.). @ -As above X-rays interpreted by me (1pt min.). @ -None done CT interpreted by me (1pt min.). @ -None done U/S interpreted by me (1pt. min.). @ -None done What testing was considered but not performed or refused? (CT, X-rays, U/S, labs)? Why? @ -None What meds were considered but not given or refused? Why? @ -None Did you discuss the management of the patient with other professionals (professionals i.e. , PA, TREE EXPERT, lab, RT, psych nurse, social science professor, assembler wire mesh gate, teacher, credit administration officer, correctional counselor/case manager)? Give summary @ -No Was smoking cessation discussed for >3mins.? @ -No Was critical care preformed (if so, how long)? @ -No Were there social determinants of health that impacted care today? How? (Homelessness, low income, unemployed, alcoholism, drug addiction, transportation, low edu. Level, literacy, decrease access to med. care, group home, rehab)? @ -No Was there de-escalation of care discussed even if they declined (Discuss DNR or withdrawal of care, Hospice)? DNR status @ -No What co-morbidities impacted this encounter? (DM, HTN, Smoking, COPD, CAD, Cancer, CVA, ARF, Chemo, Hep., AIDS, mental health diagnosis, sleep apnea, morbid obesity)? @ -Diabetes, chronic pain Was patient admitted / discharged? Hospital course, mention meds given and route, prescriptions, significant lab abnormalities, going to OR and other pertinent info. @ -Discharge patient has chronic flank pain, chronic pain from kidney stones. Patient has no other acute complaints vitals are stable patient discharged in stable condition. Undiagnosed new problem with uncertain prognosis? @ -No Drug Therapy requiring intensive monitoring for toxicity (Heparin, Nitro, Insulin, Cardizem)? @ -No Were any procedures done? @ -No Diagnosis/symptom? @ -Flank pain Acute, or Chronic, or Acute on Chronic? @ -Acute Uncomplicated (without systemic symptoms) or Complicated (systemic symptoms)? @ -Uncomplicated Side effects of treatment? @ -No Exacerbation, Progression, or Severe Exacerbation? @ -No Poses a threat to life or bodily function? How? (Chest pain, [place], [place], pneumonia, PE, COPD, DKA, ARF, appy, cholecystitis, CVA, Diverticulitis, Homicidal, Suicidal, threat to staff... and all critical care pts) @ -No Disposition Clinical Impression: Flank pain Disposition: HOME SELF-CARE Condition: Stable Instructions (If sedation given, give patient instructions): Flank Pain (ED) Additional Instructions: Please return to the Emergency Department if symptoms worsen or any other concerns. Prescriptions: Prochlorperazine [Compazine] 10 mg PO Q8H #14 tab Is patient prescribed a controlled substance at d/c from ED?: No Referrals: Rajiv Sexton MD [Primary Care Provider] - 1-2 days Time of Disposition: 00:31
[2024-04-15] MEDS: KETOROLAC 15 MG/ML 1 ML VIAL IM STA (00:37)
[2024-04-15] MEDS: MORPHINE SULFATE 4 MG/ML SYRINGE IM STA (00:40)
[2024-04-15] MEDS: PROCHLORPERAZINE INJ 10 MG/2 ML VIAL IM STA (00:42)
[2024-04-15 00:45] VITALS: BP 147/91; PULSE 90
== END 2024-04-15 01:16 | disposition home or self-care (01) ==
LOC: EC 00:08
CPT/HCPCS: 96372; 99283

== ENCOUNTER 2024-05-11 02:18 | Emergency (ER) | payer OTHER ==
--- NOTE | 2024-05-11 02:22 | ED ---
Recheck HPI - General Stated Complaint: Kidney stones Time Seen by Provider: 05/11/24 02:20 Source: RN notes reviewed, old records reviewed Limitations: no limitations - History of Present Illness Initial Comments: This is a 48-year-old female to the ER for evaluation of pain chronic pain chronic flank pain history of kidney stones with constant kidney stone pain. No fevers no chills no sick contacts no other complaint, patient having hematuria pain MD Complaint: abnormal lab (Hematuria), medication refill request -: days(s) Returns Today for: persistent/worsening pain related to initial visit Symptoms Since Prior Visit: worsening pain Associated Symptoms: none Treatments Prior to Arrival: Given Pain Meds on - Related Data Home Medications Medication Instructions Recorded Confirmed oxyCODONE-APAP 10-325MG [Percocet 1 tab PO QID PRN 08/29/17 05/03/23 10-325 mg] PARoxetine HCL [Paxil] 40 mg PO DAILY 03/12/18 05/03/23 PARoxetine [Paxil] 20 mg PO DAILY 06/04/18 05/03/23 Loratadine 10 mg PO DAILY 04/21/20 05/03/23 Dextroamphetamine/Amphetamine 20 mg PO BID 12/07/21 05/03/23 [Dextroamp-Amphetamin 20 mg Tab] Multivitamins, Thera [Multivitamin 1 tab PO DAILY 12/07/21 05/03/23 (formulary)] SUMAtriptan succinate [Imitrex] 100 mg PO DAILY PRN 12/07/21 05/03/23 Atorvastatin [Lipitor] 40 mg PO DAILY 05/03/23 05/03/23 Cholecalciferol [Vitamin D3 (25 25 mcg PO DAILY 05/03/23 05/03/23 Mcg = 1000 Iu)] Cyanocobalamin (Vitamin B-12) 1,000 mcg PO DAILY 05/03/23 05/03/23 [Vitamin B-12] Tirzepatide [Mounjaro] 12.5 mg SQ WE 05/03/23 05/03/23 lisinopriL [Zestril] 10 mg PO DAILY 05/03/23 05/03/23 metFORMIN HCL 1,000 mg PO BID 05/03/23 05/03/23 Previous Rx's Medication Instructions Recorded Ondansetron Odt [Zofran Odt] 4 mg PO Q8HR PRN #20 tab 09/06/22 Cephalexin [Keflex] 500 mg PO Q6HR 7 Days #28 cap 09/27/23 Fluconazole 150 mg PO DIRECTED #2 tab 09/27/23 Tamsulosin [Flomax] 0.4 mg PO DAILY 14 Days #14 cap 11/26/23 Prochlorperazine [Compazine] 10 mg PO Q8H #14 tab 04/15/24 Allergies Allergy/AdvReac Type Severity Reaction Status Date / Time bupropion HCl Allergy Rash/Hives Verified 05/18/24 22:53 [From Wellbutrin] divalproex sodium Allergy Unknown Verified 05/18/24 22:53 [From Depakote] fentanyl Allergy Swelling Verified 05/18/24 22:53 Iodinated Contrast Media Allergy Anaphylaxis Verified 05/18/24 22:53 [Iodinated Contrast Media - IV Dye] orange juice [[place]] Allergy Rash/Hives Verified 05/18/24 22:53 Penicillins Allergy Rash/Hives/Gi Verified 05/18/24 22:53 Upset Sulfa (Sulfonamide Allergy Rash/Hives Verified 05/18/24 22:53 Antibiotics) sulfamethoxazole Allergy Rash/Hives Verified 05/18/24 22:53 [From Bactrim] trimethoprim [From Bactrim] Allergy Rash/Hives Verified 05/18/24 22:53 Review of Systems ROS Statement: Those systems with pertinent positive or pertinent negative responses have been documented in the HPI. ROS Other: All systems not noted in ROS Statement are negative. 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 History of Any Multi-Drug Resistant Organisms: ESBL Date of last positivie culture/infection: 05/14/17 MDRO Source:: ESBL URINE, Past Surgical History: Bladder Surgery, Section, Cholecystectomy, Hysterectomy, Orthopedic Surgery, Tubal Ligation Additional Past Surgical History / Comment(s): R ovarian cystectomy, laparoscopic surgery for L ovary that had attached to the bowel, D&C, numerous lithotripsies, nephroscopies, cystoscopies and stents to ureters-none in place at this time, L robotic pyeloplasty with post op infection around kidney which then required a picc line/later removed (pt states was not MRSA), L rotator cuff repair, L wrist tendon surgery, colonoscopy. Kidney stone removal. Past Anesthesia/Blood Transfusion Reactions: Family History of Problems w/ Anesthesia Additional Past Anesthesia/Blood Transfusion Reaction / Comment(s): dad-hard time waking up due to enzyme problems in liver Past Psychological History: ADD/ADHD, Anxiety, Bipolar, Depression, PTSD Smoking Status: Current every day smoker Past Alcohol Use History: None Reported Past Drug Use History: None Reported - Past Family History Brother(s) Family Medical History: Cancer Additional Family Medical History / Comment(s): testicular Father Family Medical History: Coronary Artery Disease (CAD), CVA/TIA, Diabetes Mellitus, Renal Disease Additional Family Medical History / Comment(s): GLAUCOMA,NEUROPATHY HAD TRIPLE CABG, at 56yrs from renal disease. Mother Family Medical History: Hyperlipidemia Additional Family Medical History / Comment(s): DDD, HAD 3 vessel CABG AGE 54. General Exam General appearance: alert, in no apparent distress Head exam: Present: atraumatic, normocephalic, normal inspection Eye exam: Present: normal appearance, PERRL, EOMI. Absent: scleral icterus, conjunctival injection, periorbital swelling ENT exam: Present: normal exam, mucous membranes moist Neck exam: Present: normal inspection. Absent: tenderness, meningismus, lymphadenopathy Respiratory exam: Present: normal lung sounds bilaterally. Absent: respiratory distress, wheezes, rales, rhonchi, stridor Cardiovascular Exam: Present: regular rate, normal rhythm, normal heart sounds. Absent: systolic murmur, diastolic murmur, rubs, gallop, clicks GI/Abdominal exam: Present: soft, normal bowel sounds. Absent: distended, tenderness, guarding, rebound, rigid Extremities exam: Present: normal inspection, full ROM, normal capillary refill. Absent: tenderness, pedal edema, joint swelling, calf tenderness Back exam: Present: normal inspection Neurological exam: Present: alert, oriented X3, CN II-XII intact Psychiatric exam: Present: normal affect, normal mood Skin exam: Present: warm, dry, intact, normal color. Absent: rash Course Vital Signs 05/11/24 05/11/24 02:20 03:53 Temperature 98.1 F 98.0 F Pulse Rate 84 71 Respiratory 16 18 Rate Blood Pressure 143/87 116/80 O2 Sat by Pulse 95 98 Oximetry - Reevaluation(s) Reevaluation #1: 05/11/24 02:21 Medical records reviewed Reevaluation #2: Patient symptoms improved Reevaluation #3: Patient informed of results questions answered Reevaluation #4: Was pt. sent in by a medical professional or institution (STUART Yeager, ENERGY RISK MANAGEMENT ANALYST, urgent care, hospital, or [facility]...) When possible be specific @ -no Did you speak to anyone other than the patient for history (EMS, parent, family, police, friend...)? What history was obtained from this source @ -no Did you review nursing and triage notes (agree or disagree)? Why? @ -agree Are old charts reviewed (outside hosp., previous admission, EMS record, old EKG, old radiological studies, urgent care reports/EKG's, [facility] records)? Report findings @ -yes Differential Diagnosis (chest pain, altered mental status, abdominal pain women, abdominal pain men, vaginal bleeding, weakness, fever, dyspnea, syncope, headache, dizziness, GI bleed, back pain, seizure, CVA, palpatations, mental health, musculoskeletal)? @ -prior EKG interpreted by me (3pts min.). @ -no X-rays interpreted by me (1pt min.). @ -no CT interpreted by me (1pt min.). @ -no U/S interpreted by me (1pt. min.). @ -no What testing was considered but not performed or refused? (CT, X-rays, U/S, labs)? Why? @ -none What meds were considered but not given or refused? Why? @ -none Did you discuss the management of the patient with other professionals (professionals i.e. STUART Yeager, ENERGY RISK MANAGEMENT ANALYST, lab, RT, psych nurse, licensed clinical social worker, lard mixer, t eacher, motorcycle police officer, major case detective)? Give summary @ -no Was smoking cessation discussed for >3mins.? @ -no Was critical care preformed (if so, how long)? @ -no Were there social determinants of health that impacted care today? How? (Homelessness, low income, unemployed, alcoholism, drug addiction, transportation, low edu. Level, literacy, decrease access to med. care, skilled nursing, rehab)? @ -none Was there de-escalation of care discussed even if they declined (Discuss DNR or withdrawal of care, Hospice)? DNR status @ -no What co-morbidities impacted this encounter? (DM, HTN, Smoking, COPD, CAD, Cancer, CVA, ARF, Chemo, Hep., AIDS, mental health diagnosis, sleep apnea, morbid obesity)? @ -none Was patient admitted / discharged? Hospital course, mention meds given and route, prescriptions, significant lab abnormalities, going to OR and other pertinent info. @ - 48 female to the ER for evaluation of blood in the ER with chronic pain chronic flank pain, patient has pain control currently and can be discharged home Discharge Undiagnosed new problem with uncertain prognosis? @ -no Drug Therapy requiring intensive monitoring for toxicity (Heparin, Nitro, Insulin, Cardizem)? @ -no Were any procedures done? @ -no Diagnosis/symptom? @ -Chronic pain Acute, or Chronic, or Acute on Chronic? @ -Acute Uncomplicated (without systemic symptoms) or Complicated (systemic symptoms)? @ -Complicated Side effects of treatment? @ -no Exacerbation, Progression, or Severe Exacerbation? @ -exacerbation Poses a threat to life or bodily function? How? (Chest pain, [place], [place], pneumonia, PE, COPD, DKA, ARF, appy, cholecystitis, CVA, Diverticulitis, Homicidal, Suicidal, threat to staff... and all critical care pts) @ -yes with chronic pain Reevaluation #5: Differential Abdominal Pain Women: Appendicitis, Cholecystitis, diverticulosis, ischemic bowel, pancreatitis, hepatitis, UTI, gastroenteritis, AAA, incarcerated hernia, bowel obstruction, constipation, inflammatory bowel, hepatitis, peptic ulcer disease, splenic infarction, perforated viscus, vulvitis, ovarian torsion, PID, kidney stone, placenta abruption, this is not meant to be an all-inclusive list Medical Decision Making - Medical Decision Making 48 female to the ER for evaluation of blood in the ER with chronic pain chronic flank pain, patient has pain control currently and can be discharged home - Lab Data Result diagrams: 05/11/24 02:41 05/11/24 02:41 Lab Results 05/11/24 05/11/24 05/11/24 Range/Units 02:41 02:41 02:42 WBC 11.3 H (3.8-10.6) k/uL RBC 4.67 (3.80-5.40) m/uL Hgb 14.0 (11.4-16.0) gm/dL Hct 40.8 (34.0-46.0) % MCV 87.4 (80.0-100.0) fL MCH 29.9 (25.0-35.0) pg MCHC 34.2 (31.0-37.0) g/dL RDW 11.9 (11.5-15.5) % Plt Count 286 (150-450) k/uL MPV 7.0 Neutrophils % 48 % Lymphocytes % 43 % Monocytes % 5 % Eosinophils % 2 % Basophils % 1 % Neutrophils # 5.4 (1.3-7.7) k/uL Lymphocytes # 4.8 (1.0-4.8) k/uL Monocytes # 0.5 (0-1.0) k/uL Eosinophils # 0.3 (0-0.7) k/uL Basophils # 0.1 (0-0.2) k/uL Sodium 136 L (137-145) mmol/L Potassium 3.8 (3.5-5.1) mmol/L Chloride 105 (98-107) mmol/L Carbon Dioxide 25 (22-30) mmol/L Anion Gap 6 mmol/L BUN 16 (7-17) mg/dL Creatinine 0.62 (0.52-1.04) mg/dL Est GFR (CKD-EPI)AfAm >90 (>60 ml/min/1.73 sqM) Est GFR (CKD-EPI)NonAf >90 (>60 ml/min/1.73 sqM) Glucose 88 (74-99) mg/dL Calcium 9.4 (8.4-10.2) mg/dL Total Bilirubin 0.9 (0.2-1.3) mg/dL AST 24 (14-36) U/L ALT 16 (4-34) U/L Alkaline Phosphatase 66 (38-126) U/L Total Protein 7.0 (6.3-8.2) g/dL Albumin 4.4 (3.5-5.0) g/dL Amylase 58 (30-110) U/L Lipase 172 (23-300) U/L Urine Color Light Yellow Urine Appearance Clear (Clear) Urine pH 6.5 (5.0-8.0) Ur Specific [place] 1.016 (1.001-1.035) Urine Protein Negative (Negative) Urine Glucose (UA) Negative (Negative) Urine Ketones Negative (Negative) Urine Blood Large H (Negative) Urine Nitrite Negative (Negative) Urine Bilirubin Negative (Negative) Urine Urobilinogen <2.0 (<2.0) mg/dL Ur Leukocyte Esterase Trace H (Negative) Urine RBC >182 H (0-5) /hpf Urine WBC 8 H (0-5) /hpf Ur Squamous Epith Cells 1 (0-4) /hpf Disposition Clinical Impression: Abdominal pain Disposition: HOME SELF-CARE Condition: Good Instructions (If sedation given, give patient instructions): Abdominal Pain ( ED) Is patient prescribed a controlled substance at d/c from ED?: No Referrals: Rajiv Sexton MD [Primary Care Provider] - 1-2 days Time of Disposition: 03:00
[2024-05-11 03:02] LABS: Basophils # (A) 0.1 k/uL (0-0.2); Basophils % (A) 1 %; Eosinophils # (A) 0.3 k/uL (0-0.7); Eosinophils % (A) 2 %; HCT 40.8 % (34.0-46.0); Lymphocytes # (A) 4.8 k/uL (1.0-4.8); Lymphocytes % (A) 43 %; MCH 29.9 pg (25.0-35.0); MCHC 34.2 g/dL (31.0-37.0); MCV 87.4 fL (80.0-100.0); Monocytes # (A) 0.5 k/uL (0-1.0); Monocytes % (A) 5 %; Neutrophils # (A) 5.4 k/uL (1.3-7.7); Neutrophils % (A) 48 %; Platelet Count 286 k/uL (150-450); RBC 4.67 m/uL (3.80-5.40); RDW 11.9 % (11.5-15.5); WBC 11.3 k/uL (3.8-10.6)
[2024-05-11] MEDS: HYDROmorphone 1 MG/ML 1 ML SYRINGE IVP STA (03:07)
[2024-05-11] MEDS: ONDANSETRON 4 MG/2 ML VIAL IVP STA (03:07)
[2024-05-11] MEDS: diphenhydrAMINE 50 MG/ML 1 ML VIAL IVP STA (03:07)
[2024-05-11] MEDS: SODIUM CHLORIDE 0.9% 1,000 ML IV STA (03:07)
[2024-05-11 03:10] LABS: Appearance,Urine Clear (Clear); Bilirubin,Urine Negative (Negative); Blood,Urine Large (Negative); Color,Urine Light Yellow; Glucose,Urine (UA) Negative (Negative); Ketones,Urine Negative (Negative); Leukocyte Esterase,Urine Trace (Negative); Nitrite,Urine Negative (Negative); PH, Urine 6.5 (5.0-8.0); Protein,Urine Negative (Negative); RBC,Urine >182 /hpf (0-5); Specific Gravity,Urine 1.016 (1.001-1.035); Squamous Epithelial Cell,Urine 1 /hpf (0-4); Urobilinogen,Urine <2.0 mg/dL (<2.0); WBC,Urine 8 /hpf (0-5)
[2024-05-11 03:11] LABS: ALT 16 U/L (4-34); AST 24 U/L (14-36); African American GFR (CKD) >90 (>60 ml/min/1.73 sqM); Albumin 4.4 g/dL (3.5-5.0); Alkaline Phosphatase 66 U/L (38-126); Amylase 58 U/L (30-110); Anion Gap 6 mmol/L; Blood Urea Nitrogen 16 mg/dL (7-17); Calcium 9.4 mg/dL (8.4-10.2); Carbon Dioxide 25 mmol/L (22-30); Chloride 105 mmol/L (98-107); Glucose 88 mg/dL (74-99); Lipase 172 U/L (23-300); Non-African American GFR(CKD) >90 (>60 ml/min/1.73 sqM); Potassium 3.8 mmol/L (3.5-5.1); Sodium 136 mmol/L (137-145); Total Bilirubin 0.9 mg/dL (0.2-1.3)
[2024-05-11 04:06] VITALS: BP 116/80; PULSE 71; RESP 18; TEMP 98
== END 2024-05-11 04:06 | disposition home or self-care (01) ==
LOC: EC 02:18
DX: G89.29 Other chronic pain (principal); N20.0 Calculus of kidney; F17.200 Nicotine dependence, unspecified, uncomplicated; Z88.0 Allergy status to penicillin; Z88.2 Allergy status to sulfonamides; Z88.8 Allergy status to other drugs, medicaments and biological substances; Z88.1 Allergy status to other antibiotic agents; Z91.041 Radiographic dye allergy status; Z90.49 Acquired absence of other specified parts of digestive tract
CPT/HCPCS: 36415; 80053; 82150; 83690; 85025; 81001; 99284; 96374; 96375 ×2; 96361; J1200; J2405; J1171

== ENCOUNTER 2024-05-18 22:48 | Emergency (ER) | payer OTHER ==
--- NOTE | 2024-05-18 23:08 | ED ---
Abdominal Pain HPI - General Chief Complaint: Abdominal Pain Stated Complaint: abd pain Time Seen by Provider: 05/18/24 23:07 Source: patient, RN notes reviewed, old records reviewed Mode of arrival: ambulatory Limitations: no limitations - History of Present Illness Initial Comments: 48 year old female presenting to the ER for evaluation of left flank pain. Patient reports extensive history of kidney stones. She is scheduled to have a lithotripsy on Sunday in [facility]. She states for the past day she has had an increase of intense left flank pain. Patient states pain feels similar to previous kidney stones. She has taken Flomax, Percocet and Toradol without pain relief. She does report hematuria dysuria, fevers, abdominal pain. Patient does report a mildly scratchy throat and states feeling worse have also been ill. She denies any chest pain, shortness of breath, constipation/diarrhea or peripheral edema. - Related Data Home Medications Medication Instructions Recorded Confirmed oxyCODONE-APAP 10-325MG [Percocet 1 tab PO QID PRN 08/29/17 05/03/23 10-325 mg] PARoxetine HCL [Paxil] 40 mg PO DAILY 03/12/18 05/03/23 PARoxetine [Paxil] 20 mg PO DAILY 06/04/18 05/03/23 Loratadine 10 mg PO DAILY 04/21/20 05/03/23 Dextroamphetamine/Amphetamine 20 mg PO BID 12/07/21 05/03/23 [Dextroamp-Amphetamin 20 mg Tab] Multivitamins, Thera [Multivitamin 1 tab PO DAILY 12/07/21 05/03/23 (formulary)] SUMAtriptan succinate [Imitrex] 100 mg PO DAILY PRN 12/07/21 05/03/23 Atorvastatin [Lipitor] 40 mg PO DAILY 05/03/23 05/03/23 Cholecalciferol [Vitamin D3 (25 25 mcg PO DAILY 05/03/23 05/03/23 Mcg = 1000 Iu)] Cyanocobalamin (Vitamin B-12) 1,000 mcg PO DAILY 05/03/23 05/03/23 [Vitamin B-12] Tirzepatide [Mounjaro] 12.5 mg SQ WE 05/03/23 05/03/23 lisinopriL [Zestril] 10 mg PO DAILY 05/03/23 05/03/23 metFORMIN HCL 1,000 mg PO BID 05/03/23 05/03/23 Previous Rx's Medication Instructions Recorded Ondansetron Odt [Zofran Odt] 4 mg PO Q8HR PRN #20 tab 09/06/22 Cephalexin [Keflex] 500 mg PO Q6HR 7 Days #28 cap 09/27/23 Fluconazole 150 mg PO DIRECTED #2 tab 09/27/23 Tamsulosin [Flomax] 0.4 mg PO DAILY 14 Days #14 cap 11/26/23 Prochlorperazine [Compazine] 10 mg PO Q8H #14 tab 04/15/24 Allergies Allergy/AdvReac Type Severity Reaction Status Date / Time bupropion HCl Allergy Rash/Hives Verified 05/18/24 22:53 [From Wellbutrin] divalproex sodium Allergy Unknown Verified 05/18/24 22:53 [From Depakote] fentanyl Allergy Swelling Verified 05/18/24 22:53 Iodinated Contrast Media Allergy Anaphylaxis Verified 05/18/24 22:53 [Iodinated Contrast Media - IV Dye] orange juice [Bourbon] Allergy Rash/Hives Verified 05/18/24 22:53 Penicillins Allergy Rash/Hives/Gi Verified 05/18/24 22:53 Upset Sulfa (Sulfonamide Allergy Rash/Hives Verified 05/18/24 22:53 Antibiotics) sulfamethoxazole Allergy Rash/Hives Verified 05/18/24 22:53 [From Bactrim] trimethoprim [From Bactrim] Allergy Rash/Hives Verified 05/18/24 22:53 Review of Systems ROS Statement: Those systems with pertinent positive or pertinent negative responses have been documented in the HPI. ROS Other: All systems not noted in ROS Statement are negative. 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 History of Any Multi-Drug Resistant Organisms: ESBL Date of last positivie culture/infection: 11/20/17 MDRO Source:: ESBL URINE, Past Surgical History: Bladder Surgery, Section, Cholecystectomy, Hysterectomy, Orthopedic Surgery, Tubal Ligation Additional Past Surgical History / Comment(s): R ovarian cystectomy, laparoscopic surgery for L ovary that had attached to the bowel, D&C, numerous lithotripsies, nephroscopies, cystoscopies and stents to ureters-none in place at this time, L robotic pyeloplasty with post op infection around kidney which then required a picc line/later removed (pt states was not MRSA), L rotator cuff repair, L wrist tendon surgery, colonoscopy. Kidney stone removal. Past Anesthesia/Blood Transfusion Reactions: Family History of Problems w/ Anesthesia Additional Past Anesthesia/Blood Transfusion Reaction / Comment(s): dad-hard time waking up due to enzyme problems in liver Past Psychological History: ADD/ADHD, Anxiety, Bipolar, Depression, PTSD Smoking Status: Current every day smoker Past Alcohol Use History: None Reported Past Drug Use History: None Reported - Past Family History Brother(s) Family Medical History: Cancer Additional Family Medical History / Comment(s): testicular Father Family Medical History: Coronary Artery Disease (CAD), CVA/TIA, Diabetes Mellitus, Renal Disease Additional Family Medical History / Comment(s): GLAUCOMA,NEUROPATHY HAD TRIPLE CABG, at 56yrs from renal disease. Mother Family Medical History: Hyperlipidemia Additional Family Medical History / Comment(s): DDD, HAD 3 vessel CABG AGE 54. General Exam Limitations: no limitations General appearance: alert, in no apparent distress ENT exam: Present: mucous membranes moist (mildy erythematous tonsils. no exudates) Respiratory exam: Present: normal lung sounds bilaterally. Absent: respiratory distress, wheezes, rales, rhonchi, stridor Cardiovascular Exam: Present: regular rate, normal rhythm, normal heart sounds. Absent: systolic murmur, diastolic murmur, rubs, gallop, clicks GI/Abdominal exam: Present: soft, normal bowel sounds. Absent: distended, tenderness, guarding, rebound, rigid Back exam: Present: CVA tenderness (L) Neurological exam: Present: alert, oriented X3, CN II-XII intact Skin exam: Present: warm, dry, intact, normal color. Absent: rash Course Vital Signs 05/18/24 05/19/24 22:53 01:20 Temperature 98.4 F 97.9 F Pulse Rate 90 82 Respiratory 16 18 Rate Blood Pressure 116/77 110/66 O2 Sat by Pulse 100 100 Oximetry Medical Decision Making - Medical Decision Making Was pt. sent in by a medical professional or institution ([facility], [facility], urgent care, hospital, or longterm...) When possible be specific @ -No Did you speak to anyone other than the patient for history (EMS, parent, family, police, friend...)? What history was obtained from this source @ -No Did you review nursing and triage notes (agree or disagree)? Why? @ -I reviewed and agree with nursing and triage notes Were old charts reviewed (outside hosp., previous admission, EMS record, old EKG, old radiological studies, urgent care reports/EKG's, longterm records)? Report findings @ -No old charts were reviewed Differential Diagnosis (chest pain, altered mental status, abdominal pain women, abdominal pain men, vaginal bleeding, weakness, fever, dyspnea, syncope, headache, dizziness, GI bleed, back pain, seizure, CVA, palpatations, mental health, musculoskeletal)? @ -Differential Back Pain:Strain, zoster, cauda equina syndrome, epidural abscess, vertebral osteomyelitis, discitis, fracture, subluxation, disc hernia tion, DJD, spinal stenosis, dissection, AAA, pancreatitis, peptic ulcer disease, pyelonephritis, kidney stone, this is not meant to be an all-inclusive list. EKG interpreted by me (3pts min.). @ -None done X-rays interpreted by me (1pt min.). @ -None done CT interpreted by me (1pt min.). @ -None done U/S interpreted by me (1pt. min.). @ -None done What testing was considered but not performed or refused? (CT, X-rays, U/S, labs)? Why? @ -CT abdomen pelvis deferred at this time as patient has known kidney stones and reports pain is similar. Patient is in agreements to this as she has had m ultiple scans in the past. What meds were considered but not given or refused? Why? @ -None Did you discuss the management of the patient with other professionals (professionals i.e. [facility], [facility], lab, RT, psych nurse, professor of social work, respiratory care program director, teacher, chief communications officer, case advocate)? Give summary @ -No Was smoking cessation discussed for >3mins.? @ -No Was critical care preformed (if so, how long)? @ -No Were there social determinants of health that impacted care today? How? (Homelessness, low income, unemployed, alcoholism, drug addiction, transportation, low edu. Level, literacy, decrease access to med. care, nursing home, rehab)? @ -No Was there de-escalation of care discussed even if they declined (Discuss DNR or withdrawal of care, Hospice)? DNR status @ -No What co-morbidities impacted this encounter? (DM, HTN, Smoking, COPD, CAD, Cancer, CVA, ARF, Chemo, Hep., AIDS, mental health diagnosis, sleep apnea, morbid obesity)? @ -None Was patient admitted / discharged? Hospital course, mention meds given and route, prescriptions, significant lab abnormalities, going to OR and other pertinent info. @ -Discharged. 48 year old female presenting to the ER with a chief complaint left flank pain. Patient has known kidney stones. She scheduled for lithotripsy on Sunday. Patient presents to the ER for pain control. Vitals stable. Patient afebrile. Laboratory studies obtained unremarkable. Urine hemorrhagic likely due to stone. Viral swabs and strep negative. Patient received symptomatic control in the ER with IV fluids and Dilaudid, with improvement. Upon reevaluation patient resting comfortably exam room no signs of acute distress. Patient reporting improved pain. Patient stable for discharge. Strict return parameters discussed. Patient discharged in stable condition with follow-up to PCP. Patient verbally expressed understanding and agreement with care plan. Case discussed with ED attending, Dr. Prajapati. Undiagnosed new problem with uncertain prognosis? @ -No Drug Therapy requiring intensive monitoring for toxicity (Heparin, Nitro, Insulin, Cardizem)? @ -No Were any procedures done? @ -No Diagnosis/symptom? @ -Left flank pain/history of kidney stones Acute, or Chronic, or Acute on Chronic? @ -Acute on chronic Uncomplicated (without systemic symptoms) or Complicated (systemic symptoms)? @ -Uncomplicated Side effects of treatment? @ -No Exacerbation, Progression, or Severe Exacerbation? @ -No Poses a threat to life or bodily function? How? (Chest pain, USA, CT, pneumonia, PE, COPD, DKA, ARF, appy, cholecystitis, CVA, Diverticulitis, Homicidal, Suicidal, threat to staff... and all critical care pts) @ -No - Lab Data Result diagrams: 05/18/24 23:37 05/18/24 23:37 Lab Results 05/18/24 05/18/24 05/18/24 Range/Units 23:37 23:37 23:37 WBC 8.3 (3.8-10.6) k/uL RBC 4.63 (3.80-5.40) m/uL Hgb 14.1 (11.4-16.0) gm/dL Hct 40.5 (34.0-46.0) % MCV 87.6 (80.0-100.0) fL MCH 30.5 (25.0-35.0) pg MCHC 34.8 (31.0-37.0) g/dL RDW 12.3 (11.5-15.5) % Plt Count 280 (150-450) k/uL MPV 7.4 Neutrophils % 55 % Lymphocytes % 34 % Monocytes % 6 % Eosinophils % 3 % Basophils % 1 % Neutrophils # 4.6 (1.3-7.7) k/uL Lymphocytes # 2.8 (1.0-4.8) k/uL Monocytes # 0.5 (0-1.0) k/uL Eosinophils # 0.3 (0-0.7) k/uL Basophils # 0.1 (0-0.2) k/uL Sodium 137 (137-145) mmol/L Potassium 3.8 (3.5-5.1) mmol/L Chloride 106 (98-107) mmol/L Carbon Dioxide 21 L (22-30) mmol/L Anion Gap 10 mmol/L BUN 22 H (7-17) mg/dL Creatinine 0.75 (0.52-1.04) mg/dL Est GFR (CKD-EPI)AfAm >90 (>60 ml/min/1.73 sqM) Est GFR (CKD-EPI)NonAf >90 (>60 ml/min/1.73 sqM) Glucose 107 H (74-99) mg/dL Plasma Lactic Acid Brant 1.6 (0.7-2.0) mmol/L Calcium 9.4 (8.4-10.2) mg/dL Total Bilirubin 1.5 H (0.2-1.3) mg/dL AST 22 (14-36) U/L ALT 18 (4-34) U/L Alkaline Phosphatase 72 (38-126) U/L Total Protein 7.1 (6.3-8.2) g/dL Albumin 4.5 (3.5-5.0) g/dL Urine Color Urine Appearance (Clear) Urine pH (5.0-8.0) Ur Specific Kemp (1.001-1.035) Urine Protein (Negative) Urine Glucose (UA) (Negative) Urine Ketones (Negative) Urine Blood (Negative) Urine Nitrite (Negative) Urine Bilirubin (Negative) Urine Urobilinogen (<2.0) mg/dL Ur Leukocyte Esterase (Negative) Urine RBC (0-5) /hpf Urine WBC (0-5) /hpf Ur Squamous Epith Cells (0-4) /hpf Urine Mucus (None) /hpf Influenza Type A (PCR) (Not Detectd) Influenza Type B (PCR) (Not Detectd) RSV (PCR) (Not Detectd) SARS-CoV-2 (PCR) (Not Detectd) Group A Strep (PCR) (Not Detectd) 05/18/24 05/19/24 05/19/24 Range/Units 23:50 00:10 00:10 WBC (3.8-10.6) k/uL RBC (3.80-5.40) m/uL Hgb (11.4-16.0) gm/dL Hct (34.0-46.0) % MCV (80.0-100.0) fL MCH (25.0-35.0) pg MCHC (31.0-37.0) g/dL RDW (11.5-15.5) % Plt Count (150-450) k/uL MPV Neutrophils % % Lymphocytes % % Monocytes % % Eosinophils % % Basophils % % Neutrophils # (1.3-7.7) k/uL Lymphocytes # (1.0-4.8) k/uL Monocytes # (0-1.0) k/uL Eosinophils # (0-0.7) k/uL Basophils # (0-0.2) k/uL Sodium (137-145) mmol/L Potassium (3.5-5.1) mmol/L Chloride (98-107) mmol/L Carbon Dioxide (22-30) mmol/L Anion Gap mmol/L BUN (7-17) mg/dL Creatinine (0.52-1.04) mg/dL Est GFR (CKD-EPI)AfAm (>60 ml/min/1.73 sqM) Est GFR (CKD-EPI)NonAf (>60 ml/min/1.73 sqM) Glucose (74-99) mg/dL Plasma Lactic Acid Brant (0.7-2.0) mmol/L Calcium (8.4-10.2) mg/dL Total Bilirubin (0.2-1.3) mg/dL AST (14-36) U/L ALT (4-34) U/L Alkaline Phosphatase (38-126) U/L Total Protein (6.3-8.2) g/dL Albumin (3.5-5.0) g/dL Urine Color Light Yellow Urine Appearance Clear (Clear) Urine pH 6.5 (5.0-8.0) Ur Specific Kemp 1.020 (1.001-1.035) Urine Protein Negative (Negative) Urine Glucose (UA) Negative (Negative) Urine Ketones Negative (Negative) Urine Blood Large H (Negative) Urine Nitrite Negative (Negative) Urine Bilirubin Negative (Negative) Urine Urobilinogen <2.0 (<2.0) mg/dL Ur Leukocyte Esterase Negative (Negative) Urine RBC >182 H (0-5) /hpf Urine WBC 4 (0-5) /hpf Ur Squamous Epith Cells 2 (0-4) /hpf Urine Mucus Rare H (None) /hpf Influenza Type A (PCR) Not Detected (Not Detectd) Influenza Type B (PCR) Not Detected (Not Detectd) RSV (PCR) Not Detected (Not Detectd) SARS-CoV-2 (PCR) Not Detected (Not Detectd) Group A Strep (PCR) NOT DETECTED (Not Detectd) Disposition Clinical Impression: Left flank pain, History of kidney stones Disposition: HOME SELF-CARE Condition: Stable Instructions (If sedation given, give patient instructions): Kidney Stones (ED) Additional Instructions: Follow-up with urologist as scheduled. Return to the ER for any new or worsening concerns. Is patient prescribed a controlled substance at d/c from ED?: No Referrals: Rajiv Sexton MD [Primary Care Provider] - 1-2 days Time of Disposition: 01:17
[2024-05-18] MEDS: HYDROmorphone 1 MG/ML 1 ML SYRINGE IVP STA (23:38)
[2024-05-18] MEDS: ONDANSETRON 4 MG/2 ML VIAL IVP STA (23:38)
[2024-05-18 23:49] LABS: Basophils # (A) 0.1 k/uL (0-0.2); Basophils % (A) 1 %; Eosinophils # (A) 0.3 k/uL (0-0.7); Eosinophils % (A) 3 %; HCT 40.5 % (34.0-46.0); HGB 14.1 gm/dL (11.4-16.0); Lymphocytes # (A) 2.8 k/uL (1.0-4.8); Lymphocytes % (A) 34 %; MCH 30.5 pg (25.0-35.0); MCHC 34.8 g/dL (31.0-37.0); MCV 87.6 fL (80.0-100.0); Mean Platelet Volume 7.4; Monocytes # (A) 0.5 k/uL (0-1.0); Monocytes % (A) 6 %; Neutrophils # (A) 4.6 k/uL (1.3-7.7); Neutrophils % (A) 55 %; Platelet Count 280 k/uL (150-450); RBC 4.63 m/uL (3.80-5.40); RDW 12.3 % (11.5-15.5); WBC 8.3 k/uL (3.8-10.6)
[2024-05-18 23:57] LABS: ALT 18 U/L (4-34); AST 22 U/L (14-36); African American GFR (CKD) >90 (>60 ml/min/1.73 sqM); Albumin 4.5 g/dL (3.5-5.0); Alkaline Phosphatase 72 U/L (38-126); Anion Gap 10 mmol/L; Blood Urea Nitrogen 22 mg/dL (7-17); Calcium 9.4 mg/dL (8.4-10.2); Carbon Dioxide 21 mmol/L (22-30); Chloride 106 mmol/L (98-107); Glucose 107 mg/dL (74-99); Non-African American GFR(CKD) >90 (>60 ml/min/1.73 sqM); Potassium 3.8 mmol/L (3.5-5.1); Sodium 137 mmol/L (137-145); Total Bilirubin 1.5 mg/dL (0.2-1.3); Total Protein 7.1 g/dL (6.3-8.2)
[2024-05-19] MEDS: SODIUM CHLORIDE 0.9% 1,000 ML IV STA (00:08)
[2024-05-19 00:17] LABS: Appearance,Urine Clear (Clear); Bilirubin,Urine Negative (Negative); Blood,Urine Large (Negative); Color,Urine Light Yellow; Glucose,Urine (UA) Negative (Negative); Ketones,Urine Negative (Negative); Leukocyte Esterase,Urine Negative (Negative); Mucus,Urine Rare /hpf; Nitrite,Urine Negative (Negative); PH, Urine 6.5 (5.0-8.0); Protein,Urine Negative (Negative); RBC,Urine >182 /hpf (0-5); Squamous Epithelial Cell,Urine 2 /hpf (0-4); Urobilinogen,Urine <2.0 mg/dL (<2.0); WBC,Urine 4 /hpf (0-5)
[2024-05-19] MEDS: HYDROmorphone 1 MG/ML 1 ML SYRINGE IVP STA (00:56)
[2024-05-19 01:27] VITALS: BP 110/66; PULSE 82; RESP 18; TEMP 97.9
== END 2024-05-19 01:30 | disposition home or self-care (01) ==
LOC: EC 22:48
DX: R10.32 Left lower quadrant pain (principal); Z87.442 Personal history of urinary calculi; F17.200 Nicotine dependence, unspecified, uncomplicated; Z88.0 Allergy status to penicillin; Z88.8 Allergy status to other drugs, medicaments and biological substances; Z88.2 Allergy status to sulfonamides; Z91.041 Radiographic dye allergy status; Z88.1 Allergy status to other antibiotic agents
CPT/HCPCS: 36415; 87651; 80053; 83605; 85025; 81001; 87636; 99284; 96374; 96375; 96376; J2405; J1171 ×2

== ENCOUNTER 2024-05-26 20:43 | Emergency (ER) | payer OTHER ==
[2024-05-26 20:53] VITALS: TEMP 98
--- NOTE | 2024-05-26 21:40 | ED ---
Abdominal Pain HPI - General Chief Complaint: Abdominal Pain Stated Complaint: Kidney Stone Time Seen by Provider: 05/26/24 21:21 Source: patient, RN notes reviewed Mode of arrival: ambulatory Limitations: no limitations - History of Present Illness Initial Comments: This is a 49-year-old female who presents to the emergency department for left flank pain. Patient has a history of recurrent kidney stones and is well-known to this emergency department. States that the flank pain has been ongoing on the left side for 3 weeks at this point. She was supposed to have a lithotripsy with her urologist, however his went into labor unexpectedly and this had to be canceled. Reports associated nausea and vomiting. MD Complaint: flank pain - Related Data Home Medications Medication Instructions Recorded Confirmed oxyCODONE-APAP 10-325MG [Percocet 1 tab PO QID PRN 08/29/17 05/03/23 10-325 mg] PARoxetine HCL [Paxil] 40 mg PO DAILY 03/12/18 05/03/23 PARoxetine [Paxil] 20 mg PO DAILY 06/04/18 05/03/23 Loratadine 10 mg PO DAILY 04/21/20 05/03/23 Dextroamphetamine/Amphetamine 20 mg PO BID 12/07/21 05/03/23 [Dextroamp-Amphetamin 20 mg Tab] Multivitamins, Thera [Multivitamin 1 tab PO DAILY 12/07/21 05/03/23 (formulary)] SUMAtriptan succinate [Imitrex] 100 mg PO DAILY PRN 12/07/21 05/03/23 Atorvastatin [Lipitor] 40 mg PO DAILY 05/03/23 05/03/23 Cholecalciferol [Vitamin D3 (25 25 mcg PO DAILY 05/03/23 05/03/23 Mcg = 1000 Iu)] Cyanocobalamin (Vitamin B-12) 1,000 mcg PO DAILY 05/03/23 05/03/23 [Vitamin B-12] Tirzepatide [Mounjaro] 12.5 mg SQ WE 05/03/23 05/03/23 lisinopriL [Zestril] 10 mg PO DAILY 05/03/23 05/03/23 metFORMIN HCL 1,000 mg PO BID 05/03/23 05/03/23 Previous Rx's Medication Instructions Recorded Ondansetron Odt [Zofran Odt] 4 mg PO Q8HR PRN #20 tab 09/06/22 Cephalexin [Keflex] 500 mg PO Q6HR 7 Days #28 cap 09/27/23 Fluconazole 150 mg PO DIRECTED #2 tab 09/27/23 Tamsulosin [Flomax] 0.4 mg PO DAILY 14 Days #14 cap 11/26/23 Prochlorperazine [Compazine] 10 mg PO Q8H #14 tab 04/15/24 Ondansetron Odt [Zofran Odt] 4 mg PO Q8HR PRN #20 tab 05/26/24 Allergies Allergy/AdvReac Type Severity Reaction Status Date / Time bupropion HCl Allergy Rash/Hives Verified 05/26/24 20:53 [From Wellbutrin] divalproex sodium Allergy Unknown Verified 05/26/24 20:53 [From Depakote] fentanyl Allergy Swelling Verified 05/26/24 20:53 Iodinated Contrast Media Allergy Anaphylaxis Verified 05/26/24 20:53 [Iodinated Contrast Media - IV Dye] orange juice [[place]] Allergy Rash/Hives Verified 05/26/24 20:53 Penicillins Allergy Rash/Hives/Gi Verified 05/26/24 20:53 Upset Sulfa (Sulfonamide Allergy Rash/Hives Verified 05/26/24 20:53 Antibiotics) sulfamethoxazole Allergy Rash/Hives Verified 05/26/24 20:53 [From Bactrim] trimethoprim [From Bactrim] Allergy Rash/Hives Verified 05/26/24 20:53 Review of Systems ROS Statement: Those systems with pertinent positive or pertinent negative responses have been documented in the HPI. ROS Other: All systems not noted in ROS Statement are negative. 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 History of Any Multi-Drug Resistant Organisms: ESBL Date of last positivie culture/infection: 05/14/17 MDRO Source:: ESBL URINE, Past Surgical History: Bladder Surgery, Section, Cholecystectomy, H ysterectomy, Orthopedic Surgery, Tubal Ligation Additional Past Surgical History / Comment(s): R ovarian cystectomy, laparoscopic surgery for L ovary that had attached to the bowel, D&C, numerous lithotripsies, nephroscopies, cystoscopies and stents to ureters-none in place at this time, L robotic pyeloplasty with post op infection around kidney which then required a picc line/later removed (pt states was not MRSA), L rotator cuff repair, L wrist tendon surgery, colonoscopy. Kidney stone removal. Past Anesthesia/Blood Transfusion Reactions: Family History of Problems w/ Anesthesia Additional Past Anesthesia/Blood Transfusion Reaction / Comment(s): dad-hard time waking up due to enzyme problems in liver Past Psychological History: ADD/ADHD, Anxiety, Bipolar, Depression, PTSD Smoking Status: Current every day smoker Past Alcohol Use History: None Reported Past Drug Use History: None Reported - Past Family History Brother(s) Family Medical History: Cancer Additional Family Medical History / Comment(s): testicular Father Family Medical History: Coronary Artery Disease (CAD), CVA/TIA, Diabetes Mellit us, Renal Disease Additional Family Medical History / Comment(s): GLAUCOMA,NEUROPATHY HAD TRIPLE CABG, at 56yrs from renal disease. Mother Family Medical History: Hyperlipidemia Additional Family Medical History / Comment(s): DDD, HAD 3 vessel CABG AGE 54. General Exam Limitations: no limitations General appearance: alert, in no apparent distress Head exam: Present: atraumatic, normocephalic, normal inspection Respiratory exam: Present: normal lung sounds bilaterally. Absent: respiratory distress, wheezes, rales, rhonchi, stridor Cardiovascular Exam: Present: regular rate, normal rhythm, normal heart sounds. Absent: systolic murmur, diastolic murmur, rubs, gallop, clicks Back exam: Present: CVA tenderness (L). Absent: CVA tenderness (R) Neurological exam: Present: alert, oriented X3, CN II-XII intact Psychiatric exam: Present: normal affect, normal mood Skin exam: Present: warm, dry, intact, normal color. Absent: rash Course Vital Signs 05/26/24 20:51 Temperature 98 F Pulse Rate 102 H Respiratory 16 Rate Blood Pressure 135/87 O2 Sat by Pulse 100 Oximetry Medical Decision Making - Medical Decision Making This is a 49-year-old female who presents to the emergency department for left flank pain. Was pt. sent in by a medical professional or institution? @ -No Did you speak to anyone other than the patient for history? @ -No Did you review nursing and triage notes? @ -Yes, and I agree, it is accurate with regards to the patient's symptoms. Were old charts reviewed? @ -No Differential Diagnosis? @ -Differential Flank Pain: UTI, pyelonephritis, kidney stone, musculoskeletal, pancreatitis, cholecystitis, this is not meant to be an all-inclusive list. EKG interpreted by me (3pts min.)? @ -Not obtained X-rays interpreted by me (1pt min.)? @ -Not obtained CT interpreted by me (1pt min.)? @ -Not obtained U/S interpreted by me (1pt. min.)? @ -Not obtained What testing was considered but not performed? (CT, X-rays, U/S, labs)? Why? @ -None What meds were considered but not given? Why? @ -None Did you discuss the management of the patient with other professionals? @ -No Did you reconcile home meds? @ -No Was smoking cessation discussed for >3mins.? @ -No Was critical care preformed (if so, how long)? @ -No Were there social determinants of health that impacted care today? How? (Homelessness, low income, unemployed, alcoholism, drug addiction, transportation, low edu. Level, literacy, decrease access to med. care, [facility], rehab)? @ -No Was there de-escalation of care discussed even if they declined? (Discuss DNR or withdrawal of care, Hospice)? @ -No What co-morbidities impacted this encounter? (DM, HTN, Smoking, COPD, CAD, Cancer, CVA, Hep., AIDS, mental health diagnosis, sleep apnea, morbid obesity)? @ -Kidney stones, DM Was patient admitted / discharged? @ -Discharged. Urinalysis demonstrates blood but is negative for signs of infection. Symptoms well-controlled in the emergency department. She was also given a liter bolus of IV fluids. She was comfortable with discharge home at that point. Zofran refilled and she will follow-up with her urologist for further management. Patient discharged home in stable condition. Case discussed with ED attending Dr. Pena. Return precautions reviewed in depth, the patient is instructed to return to the emergency department with any new, worsening, or concerning symptoms. Patient verbalized understanding. Undiagnosed new problem with uncertain prognosis? @ -None Drug Therapy requiring intensive monitoring for toxicity (Heparin, Nitro, Insulin, Cardizem)? @ -None Were any procedures done? @ -None Diagnosis/symptom? @ -Recurrent kidney stones Acute, or Chronic, or Acute on Chronic? @ -Acute on chronic Uncomplicated (without systemic symptoms) or Complicated (systemic symptoms)? @ -Uncomplicated Side effects of treatment? @ -None Exacerbation, Progression, or Severe Exacerbation] @ -Exacerbation Poses a threat to life or bodily function? @ -No - Lab Data Lab Results 05/26/24 Range/Units 22:44 Urine Color Light Red Urine Appearance Cloudy H (Clear) Urine pH 6.0 (5.0-8.0) Ur Specific [place] 1.027 (1.001-1.035) Urine Protein Trace H (Negative) Urine Glucose (UA) Negative (Negative) Urine Ketones Negative (Negative) Urine Blood Large H (Negative) Urine Nitrite Negative (Negative) Urine Bilirubin Negative (Negative) Urine Urobilinogen <2.0 (<2.0) mg/dL Ur Leukocyte Esterase Trace H (Negative) Urine RBC >182 H (0-5) /hpf Urine WBC 5 (0-5) /hpf Ur Squamous Epith Cells 6 H (0-4) /hpf Calcium Oxalate Crystal Few H (None) /hpf Urine Mucus Rare H (None) /hpf Disposition Clinical Impression: Recurrent kidney stones Disposition: HOME SELF-CARE Additional Instructions: Return to the emergency department with any new, worsening, or concerning symptoms. Take the Zofran up to every 8 hours as needed for nausea and vomiting. Follow-up with your urologist. Prescriptions: Ondansetron Odt [Zofran Odt] 4 mg PO Q8HR PRN #20 tab PRN Reason: Nausea And Vomiting Is patient prescribed a controlled substance at d/c from ED?: No Referrals: Rajiv Sexton MD [Primary Care Provider] - 1-2 days Time of Disposition: 23:24
[2024-05-26] MEDS: SODIUM CHLORIDE 0.9% 1,000 ML IV STA (21:50)
[2024-05-26] MEDS: ONDANSETRON 4 MG/2 ML VIAL IVP STA (21:51)
[2024-05-26] MEDS: HYDROmorphone 1 MG/ML 1 ML SYRINGE IVP STA ×2 (21:51→22:58)
[2024-05-26] MEDS: KETOROLAC 15 MG/ML 1 ML VIAL IVP STA ×2 (21:51→22:57)
[2024-05-26 23:16] LABS: Appearance,Urine Cloudy (Clear); Bilirubin,Urine Negative (Negative); Blood,Urine Large (Negative); Calcium Oxalate Crystals,Urine Few /hpf; Color,Urine Light Red; Glucose,Urine (UA) Negative (Negative); Ketones,Urine Negative (Negative); Leukocyte Esterase,Urine Trace (Negative); Mucus,Urine Rare /hpf; Nitrite,Urine Negative (Negative); Protein,Urine Trace (Negative); RBC,Urine >182 /hpf (0-5); Specific Gravity,Urine 1.027 (1.001-1.035); Squamous Epithelial Cell,Urine 6 /hpf (0-4); Urobilinogen,Urine <2.0 mg/dL (<2.0); WBC,Urine 5 /hpf (0-5)
[2024-05-26] MEDS: ONDANSETRON 4 MG ODT STARTER PACK 2 TAB BTL PO STA (23:34)
[2024-05-26 23:56] VITALS: BP 129/85; PULSE 92; RESP 20
== END 2024-05-26 23:42 | disposition home or self-care (01) ==
LOC: EC 20:43
DX: N20.0 Calculus of kidney (principal); E11.9 Type 2 diabetes mellitus without complications; F17.200 Nicotine dependence, unspecified, uncomplicated; Z88.0 Allergy status to penicillin; Z88.1 Allergy status to other antibiotic agents; Z88.2 Allergy status to sulfonamides; Z88.8 Allergy status to other drugs, medicaments and biological substances; Z91.041 Radiographic dye allergy status; Z79.84 Long term (current) use of oral hypoglycemic drugs
CPT/HCPCS: 99284; 96374; 96375 ×2; 96376 ×2; 96361; 81001; J2405; J1171; J1885; S0119

== ENCOUNTER 2024-05-30 19:38 | Emergency (ER) | payer OTHER ==
[2024-05-30 19:45] VITALS: RESP 16; TEMP 97.3
[2024-05-30 20:21] LABS: Appearance,Urine Cloudy (Clear); Bilirubin,Urine Negative (Negative); Blood,Urine Large (Negative); Color,Urine Light Red; Glucose,Urine (UA) Negative (Negative); Ketones,Urine Trace (Negative); Leukocyte Esterase,Urine Small (Negative); Mucus,Urine Many /hpf; Nitrite,Urine Negative (Negative); PH, Urine 5.5 (5.0-8.0); Protein,Urine 1+ (Negative); RBC,Urine >182 /hpf (0-5); Specific Gravity,Urine 1.028 (1.001-1.035); Squamous Epithelial Cell,Urine 17 /hpf (0-4); WBC,Urine 80 /hpf (0-5)
[2024-05-30] MEDS: SODIUM CHLORIDE 0.9% 1,000 ML IV ONE (20:56)
[2024-05-30] MEDS: KETOROLAC 15 MG/ML 1 ML VIAL IVP STA (21:01)
--- NOTE | 2024-05-30 21:01 | ED ---
General Adult HPI - General Chief complaint: Recheck/Abnormal Lab/Rx Stated complaint: Kidney Stones Time Seen by Provider: 05/30/24 19:47 Source: patient Mode of arrival: ambulatory Limitations: no limitations - History of Present Illness Initial comments: 49-year-old female presenting with chief complaint of left-sided flank pain. Patient has longstanding history of kidney stones. States that she is scheduled for lithotripsy on Sunday with her urologist in [place]. She admits to nausea and vomiting. She has been taking Toradol, Percocet, and Flomax. No dysuria. Admits to hematuria. No fevers. - Related Data Home Medications Medication Instructions Recorded Confirmed oxyCODONE-APAP 10-325MG [Percocet 1 tab PO QID PRN 08/29/17 05/03/23 10-325 mg] PARoxetine HCL [Paxil] 40 mg PO DAILY 03/12/18 05/03/23 PARoxetine [Paxil] 20 mg PO DAILY 06/04/18 05/03/23 Loratadine 10 mg PO DAILY 04/21/20 05/03/23 Dextroamphetamine/Amphetamine 20 mg PO BID 12/07/21 05/03/23 [Dextroamp-Amphetamin 20 mg Tab] Multivitamins, Thera [Multivitamin 1 tab PO DAILY 12/07/21 05/03/23 (formulary)] SUMAtriptan succinate [Imitrex] 100 mg PO DAILY PRN 12/07/21 05/03/23 Atorvastatin [Lipitor] 40 mg PO DAILY 05/03/23 05/03/23 Cholecalciferol [Vitamin D3 (25 25 mcg PO DAILY 05/03/23 05/03/23 Mcg = 1000 Iu)] Cyanocobalamin (Vitamin B-12) 1,000 mcg PO DAILY 05/03/23 05/03/23 [Vitamin B-12] Tirzepatide [Mounjaro] 12.5 mg SQ WE 05/03/23 05/03/23 lisinopriL [Zestril] 10 mg PO DAILY 05/03/23 05/03/23 metFORMIN HCL 1,000 mg PO BID 05/03/23 05/03/23 Previous Rx's Medication Instructions Recorded Ondansetron Odt [Zofran Odt] 4 mg PO Q8HR PRN #20 tab 09/06/22 Cephalexin [Keflex] 500 mg PO Q6HR 7 Days #28 cap 09/27/23 Fluconazole 150 mg PO DIRECTED #2 tab 09/27/23 Tamsulosin [Flomax] 0.4 mg PO DAILY 14 Days #14 cap 11/26/23 Prochlorperazine [Compazine] 10 mg PO Q8H #14 tab 04/15/24 Ondansetron Odt [Zofran Odt] 4 mg PO Q8HR PRN #20 tab 05/26/24 Allergies Allergy/AdvReac Type Severity Reaction Status Date / Time bupropion HCl Allergy Rash/Hives Verified 05/30/24 19:42 [From Wellbutrin] divalproex sodium Allergy Unknown Verified 05/30/24 19:42 [From Depakote] fentanyl Allergy Swelling Verified 05/30/24 19:42 Iodinated Contrast Media Allergy Anaphylaxis Verified 05/30/24 19:42 [Iodinated Contrast Media - IV Dye] orange juice [[place]] Allergy Rash/Hives Verified 05/30/24 19:42 Penicillins Allergy Rash/Hives/Gi Verified 05/30/24 19:42 Upset Sulfa (Sulfonamide Allergy Rash/Hives Verified 05/30/24 19:42 Antibiotics) sulfamethoxazole Allergy Rash/Hives Verified 05/30/24 19:42 [From Bactrim] trimethoprim [From Bactrim] Allergy Rash/Hives Verified 05/30/24 19:42 Review of Systems ROS Statement: Those systems with pertinent positive or pertinent negative responses have been documented in the HPI. ROS Other: All systems not noted in ROS Statement are negative. 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 History of Any Multi-Drug Resistant Organisms: ESBL Date of last positivie culture/infection: 05/14/17 MDRO Source:: ESBL URINE, Past Surgical History: Bladder Surgery, Section, Cholecystectomy, Hysterectomy, Orthopedic Surgery, Tubal Ligation Additional Past Surgical History / Comment(s): R ovarian cystectomy, laparoscopic surgery for L ovary that had attached to the bowel, D&C, numerous lithotripsies, nephroscopies, cystoscopies and stents to ureters-none in place at this time, L robotic pyeloplasty with post op infection around kidney which then required a picc line/later removed (pt states was not MRSA), L rotator cuff repair, L wrist tendon surgery, colonoscopy. Kidney stone removal. Past Anesthesia/Blood Transfusion Reactions: Family History of Problems w/ Anesthesia Additional Past Anesthesia/Blood Transfusion Reaction / Comment(s): dad-hard time waking up due to enzyme problems in liver Past Psychological History: ADD/ADHD, Anxiety, Bipolar, Depression, PTSD Smoking Status: Current every day smoker Past Alcohol Use History: None Reported Past Drug Use History: None Reported - Past Family History Brother(s) Family Medical History: Cancer Additional Family Medical History / Comment(s): testicular Father Family Medical History: Coronary Artery Disease (CAD), CVA/TIA, Diabetes Mellitus, Renal Disease Additional Family Medical History / Comment(s): GLAUCOMA,NEUROPATHY HAD TRIPLE CABG, at 56yrs from renal disease. Mother Family Medical History: Hyperlipidemia Additional Family Medical History / Comment(s): DDD, HAD 3 vessel CABG AGE 54. General Exam Limitations: no limitations General appearance: alert, in no apparent distress Head exam: Present: atraumatic, normocephalic, normal inspection Eye exam: Present: normal appearance, EOMI Neck exam: Present: normal inspection. Absent: meningismus Respiratory exam: Present: normal lung sounds bilaterally. Absent: respiratory distress, wheezes, rales, rhonchi, stridor Cardiovascular Exam: Present: regular rate, normal rhythm, normal heart sounds. Absent: systolic murmur, diastolic murmur, rubs, gallop, clicks GI/Abdominal exam: Present: soft. Absent: distended, tenderness, guarding, rebound, rigid Back exam: Present: normal inspection, CVA tenderness (L). Absent: CVA tenderness (R) Neurological exam: Present: alert, oriented X3 Psychiatric exam: Present: normal affect, normal mood Skin exam: Present: warm, dry Course Vital Signs 05/30/24 05/30/24 19:43 22:00 Temperature 97.3 F L Pulse Rate 107 H 50 L Respiratory 16 16 Rate Blood Pressure 113/80 113/73 O2 Sat by Pulse 100 100 Oximetry Medical Decision Making - Medical Decision Making Was pt. sent in by a medical professional or institution (STUART Yeager, LEAD ASSEMBLER, urgent care, hospital, or longterm...) When possible be specific @ -No Did you speak to anyone other than the patient for history (EMS, parent, family, police, friend...)? What history was obtained from this source @ -No Did you review nursing and triage notes (agree or disagree)? Why? @ -I reviewed and agree with nursing and triage notes Were old charts reviewed (outside hosp., previous admission, EMS record, old EKG, old radiological studies, urgent care reports/EKG's, longterm records)? Report findings @ -No old charts were reviewed Differential Diagnosis (chest pain, altered mental status, abdominal pain women, abdominal pain men, vaginal bleeding, weakness, fever, dyspnea, syncope, headache, dizziness, GI bleed, back pain, seizure, CVA, palpatations, mental health, musculoskeletal)? @ - MDM Differential Back Pain: Strain, zoster, cauda equina syndrome, epidural abscess, vertebral osteomyelitis, discitis, fracture, subluxation, disc herniation, DJD, spinal stenosis, dissection, AAA, pancreatitis, peptic ulcer disease, pyelonephritis, kidney stone this is not meant to be an all-inclusive list. EKG interpreted by me (3pts min.). @ -As above X-rays interpreted by me (1pt min.). @ -None done CT interpreted by me (1pt min.). @ -None done U/S interpreted by me (1pt. min.). @ -None done What testing was considered but not performed or refused? (CT, X-rays, U/S, labs)? Why? @ -None What meds were considered but not given or refused? Why? @ -None Did you discuss the management of the patient with other professionals (professionals i.e. STUART Yeager, LEAD ASSEMBLER, lab, RT, psych nurse, social services technician, construction or leak gang laborer, teacher, chief lifestyle officer, special education case manager)? Give summary @ -No Was smoking cessation discussed for >3mins.? @ -No Was critical care preformed (if so, how long)? @ -No Were there social determinants of health that impacted care today? How? (Homelessness, low income, unemployed, alcoholism, drug addiction, transportation, low edu. Level, literacy, decrease access to med. care, [facility], rehab)? @ -No Was there de-escalation of care discussed even if they declined (Discuss DNR or withdrawal of care, Hospice)? DNR status @ -No What co-morbidities impacted this encounter? (DM, HTN, Smoking, COPD, CAD, Cancer, CVA, ARF, Chemo, Hep., AIDS, mental health diagnosis, sleep apnea, morbid obesity)? @ -None Was patient admitted / discharged? Hospital course, mention meds given and route, prescriptions, significant lab abnormalities, going to OR and other pertinent info. @ -49-year-old female presenting with chief complaint of kidney stones. He is having left flank pain. This is a chronic issue for her. No dysuria. No fevers. Admits to nausea and vomiting which is usual for her. Urine shows large blood. Patient is treated with fluids, Zofran, and pain medication. She will follow-up with her neurologist at her scheduled appointment on Sunday. Follow-up with PCP. Report back to ER with any new or worsening symptoms. Discussed return parameters and answered all questions. Patient conveyed verbal understanding and agreed to the plan. I discussed this case in detail with my attending Dr. Undiagnosed new problem with uncertain prognosis? @ -No Drug Therapy requiring intensive monitoring for toxicity (Heparin, Nitro, Insulin, Cardizem)? @ -No Were any procedures done? @ -No Diagnosis/symptom? @ -Kidney stone Acute, or Chronic, or Acute on Chronic? @ -Acute Uncomplicated (without systemic symptoms) or Complicated (systemic symptoms)? @ -Uncomplicated Side effects of treatment? @ -No Exacerbation, Progression, or Severe Exacerbation? @ -No - Lab Data Lab Results 05/30/24 Range/Units 19:52 Urine Color Light Red Urine Appearance Cloudy H (Clear) Urine pH 5.5 (5.0-8.0) Ur Specific [place] 1.028 (1.001-1.035) Urine Protein 1+ H (Negative) Urine Glucose (UA) Negative (Negative) Urine Ketones Trace H (Negative) Urine Blood Large H (Negative) Urine Nitrite Negative (Negative) Urine Bilirubin Negative (Negative) Urine Urobilinogen 2.0 (<2.0) mg/dL Ur Leukocyte Esterase Small H (Negative) Urine RBC >182 H (0-5) /hpf Urine WBC 80 H (0-5) /hpf Ur Squamous Epith Cells 17 H (0-4) /hpf Urine Mucus Many H (None) /hpf Disposition Clinical Impression: Kidney stone Disposition: HOME SELF-CARE Condition: Good Instructions (If sedation given, give patient instructions): Kidney Stones (ED) Additional Instructions: Follow-up with PCP and urologist. Report back to ER with any new or worsening symptoms. Is patient prescribed a controlled substance at d/c from ED?: No Referrals: Rajiv Sexton MD [Primary Care Provider] - 1-2 days Time of Disposition: 21:01
[2024-05-30] MEDS: HYDROmorphone 0.5 MG/0.5 ML SYRINGE IVP STA (21:02)
[2024-05-30] MEDS: ONDANSETRON 4 MG/2 ML VIAL IVP STA (21:02)
[2024-05-30 22:04] VITALS: BP 113/73; PULSE 50
== END 2024-05-30 22:00 | disposition home or self-care (01) ==
LOC: EC 19:38
DX: N20.0 Calculus of kidney (principal); F17.200 Nicotine dependence, unspecified, uncomplicated; Z88.0 Allergy status to penicillin; Z88.1 Allergy status to other antibiotic agents; Z88.2 Allergy status to sulfonamides; Z88.8 Allergy status to other drugs, medicaments and biological substances; Z91.041 Radiographic dye allergy status
CPT/HCPCS: 81001; 87086; 99284; 96374; 96375 ×2; 96361; J2405; J1885; J1171

== ENCOUNTER 2024-06-20 04:02 | Emergency (ER) | payer OTHER ==
--- NOTE | 2024-06-20 06:19 | ED ---
Back Pain HPI - General Chief Complaint: Back Pain/Injury Stated Complaint: abd pain Time Seen by Provider: 06/20/24 06:18 Source: patient, RN notes reviewed, old records reviewed Limitations: no limitations - History of Present Illness Initial Comments: 49-year-old female with a significant past medical history of nephrolithiasis presented to the ER for evaluation of left flank pain. Patient which she is scheduled to see her urologist to have lithotripsy performed on Sunday or Sunday of next week. She is presenting today for uncontrolled pain with nausea and vomiting for the past 24 hours. She has tried prescribed Toradol, Percocet and Zofran without relief. She denies any fevers, dysuria, abdominal pain. Patient has no other complaints. - Related Data Home Medications Medication Instructions Recorded Confirmed oxyCODONE-APAP 10-325MG [Percocet 1 tab PO QID PRN 08/29/17 05/03/23 10-325 mg] PARoxetine HCL [Paxil] 40 mg PO DAILY 03/12/18 05/03/23 PARoxetine [Paxil] 20 mg PO DAILY 06/04/18 05/03/23 Loratadine 10 mg PO DAILY 04/21/20 05/03/23 Dextroamphetamine/Amphetamine 20 mg PO BID 12/07/21 05/03/23 [Dextroamp-Amphetamin 20 mg Tab] Multivitamins, Thera [Multivitamin 1 tab PO DAILY 12/07/21 05/03/23 (formulary)] SUMAtriptan succinate [Imitrex] 100 mg PO DAILY PRN 12/07/21 05/03/23 Atorvastatin [Lipitor] 40 mg PO DAILY 05/03/23 05/03/23 Cholecalciferol [Vitamin D3 (25 25 mcg PO DAILY 05/03/23 05/03/23 Mcg = 1000 Iu)] Cyanocobalamin (Vitamin B-12) 1,000 mcg PO DAILY 05/03/23 05/03/23 [Vitamin B-12] Tirzepatide [Mounjaro] 12.5 mg SQ WE 05/03/23 05/03/23 lisinopriL [Zestril] 10 mg PO DAILY 05/03/23 05/03/23 metFORMIN HCL 1,000 mg PO BID 05/03/23 05/03/23 Previous Rx's Medication Instructions Recorded Ondansetron Odt [Zofran Odt] 4 mg PO Q8HR PRN #20 tab 09/06/22 Cephalexin [Keflex] 500 mg PO Q6HR 7 Days #28 cap 09/27/23 Fluconazole 150 mg PO DIRECTED #2 tab 09/27/23 Tamsulosin [Flomax] 0.4 mg PO DAILY 14 Days #14 cap 11/26/23 Prochlorperazine [Compazine] 10 mg PO Q8H #14 tab 04/15/24 Ondansetron Odt [Zofran Odt] 4 mg PO Q8HR PRN #20 tab 05/26/24 Allergies Allergy/AdvReac Type Severity Reaction Status Date / Time bupropion HCl Allergy Rash/Hives Verified 06/20/24 04:10 [From Wellbutrin] divalproex sodium Allergy Unknown Verified 06/20/24 04:10 [From Depakote] fentanyl Allergy Swelling Verified 06/20/24 04:10 Iodinated Contrast Media Allergy Anaphylaxis Verified 06/20/24 04:10 [Iodinated Contrast Media - IV Dye] orange juice [Sunflower] Allergy Rash/Hives Verified 06/20/24 04:10 Penicillins Allergy Rash/Hives/Gi Verified 06/20/24 04:10 Upset Sulfa (Sulfonamide Allergy Rash/Hives Verified 06/20/24 04:10 Antibiotics) sulfamethoxazole Allergy Rash/Hives Verified 06/20/24 04:10 [From Bactrim] trimethoprim [From Bactrim] Allergy Rash/Hives Verified 06/20/24 04:10 Review of Systems ROS Statement: Those systems with pertinent positive or pertinent negative responses have been documented in the HPI. ROS Other: All systems not noted in ROS Statement are negative. 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 History of Any Multi-Drug Resistant Organisms: ESBL Date of last positivie culture/infection: 05/14/17 MDRO Source:: ESBL URINE, Past Surgical History: Bladder Surgery, Section, Cholecystectomy, Hysterectomy, Orthopedic Surgery, Tubal Ligation Additional Past Surgical History / Comment(s): R ovarian cystectomy, laparoscopic surgery for L ovary that had attached to the bowel, D&C, numerous lithotripsies, nephroscopies, cystoscopies and stents to ureters-none in place at this time, L robotic pyeloplasty with post op infection around kidney which then required a picc line/later removed (pt states was not MRSA), L rotator cuff repair, L wrist tendon surgery, colonoscopy. Kidney stone removal. Past Anesthesia/Blood Transfusion Reactions: Family History of Problems w/ Anesthesia Additional Past Anesthesia/Blood Transfusion Reaction / Comment(s): dad-hard t sam waking up due to enzyme problems in liver Past Psychological History: ADD/ADHD, Anxiety, Bipolar, Depression, PTSD Smoking Status: Current every day smoker Past Alcohol Use History: None Reported Past Drug Use History: None Reported - Past Family History Brother(s) Family Medical History: Cancer Additional Family Medical History / Comment(s): testicular Father Family Medical History: Coronary Artery Disease (CAD), CVA/TIA, Diabetes Mellitus, Renal Disease Additional Family Medical History / Comment(s): GLAUCOMA,NEUROPATHY HAD TRIPLE CABG, at 56yrs from renal disease. Mother Family Medical History: Hyperlipidemia Additional Family Medical History / Comment(s): DDD, HAD 3 vessel CABG AGE 54. General Exam Limitations: no limitations General appearance: alert, in no apparent distress Respiratory exam: Present: normal lung sounds bilaterally. Absent: respiratory distress, wheezes, rales, rhonchi, stridor Cardiovascular Exam: Present: regular rate, normal rhythm, normal heart sounds. Absent: systolic murmur, diastolic murmur, rubs, gallop, clicks GI/Abdominal exam: Present: soft, normal bowel sounds. Absent: distended, tenderness, guarding, rebound, rigid Back exam: Present: CVA tenderness (L) Neurological exam: Present: alert, oriented X3, CN II-XII intact Skin exam: Present: warm, dry, intact, normal color. Absent: rash Course Vital Signs 06/20/24 06/20/24 06/20/24 04:08 07:52 08:08 Temperature 97.8 F 98.2 F 98.2 F Pulse Rate 82 80 56 L Respiratory 18 16 18 Rate Blood Pressure 124/78 114/72 154/88 O2 Sat by Pulse 100 100 98 Oximetry 06/20/24 09:16 Temperature 97.8 F Pulse Rate 86 Respiratory 16 Rate Blood Pressure 108/75 O2 Sat by Pulse 100 Oximetry Medical Decision Making - Medical Decision Making Was pt. sent in by a medical professional or institution (, PA, MARINE INSURANCE CLAIM EXAMINER, urgent care, hospital, or long term...) When possible be specific @ -No Did you speak to anyone other than the patient for history (EMS, parent, family, police, friend...)? What history was obtained from this source @ -No Did you review nursing and triage notes (agree or disagree)? Why? @ -I reviewed and agree with nursing and triage notes Were old charts reviewed (outside hosp., previous admission, EMS record, old EKG , old radiological studies, urgent care reports/EKG's, long term records)? Report findings @ -Yes, I reviewed ER visit from 05-30-2024. Patient seen here for similar complaint symptomatic control and patient discharged home. Differential Diagnosis (chest pain, altered mental status, abdominal pain women, abdominal pain men, vaginal bleeding, weakness, fever, dyspnea, syncope, headache, dizziness, GI bleed, back pain, seizure, CVA, palpatations, mental health, musculoskeletal)? @ -Differential Back Pain:Strain, zoster, cauda equina syndrome, epidural abscess, vertebral osteomyelitis, discitis, fracture, subluxation, disc herniation, DJD, spinal stenosis, dissection, AAA, pancreatitis, peptic ulcer disease, pyelonephritis, kidney stone, this is not meant to be an all-inclusive list. EKG interpreted by me (3pts min.). @ -None done X-rays interpreted by me (1pt min.). @ -None done CT interpreted by me (1pt min.). @ -None done U/S interpreted by me (1pt. min.). @ -None done What testing was considered but not performed or refused? (CT, X-rays, U/S, labs)? Why? @ -CT considered but not performed. Patient has had numerous scans in the past. She states this pain feels similar to prior stones. Patient deferred CT scan at this time. What meds were considered but not given or refused? Why? @ -None Did you discuss the management of the patient with other professionals (prof geiger i.e. , PA, MARINE INSURANCE CLAIM EXAMINER, lab, RT, psych nurse, vp digital marketing social media and crm, laser specialist, teacher, chief executive officer, counseling case manager)? Give summary @ -No Was smoking cessation discussed for >3mins.? @ -No Was critical care preformed (if so, how long)? @ -No Were there social determinants of health that impacted care today? How? (Homelessness, low income, unemployed, alcoholism, drug addiction, transportation, low edu. Level, literacy, decrease access to med. care, assisted, rehab)? @ -No Was there de-escalation of care discussed even if they declined (Discuss DNR or withdrawal of care, Hospice)? DNR status @ -No What co-morbidities impacted this encounter? (DM, HTN, Smoking, COPD, CAD, Cancer, CVA, ARF, Chemo, Hep., AIDS, mental health diagnosis, sleep apnea, morbid obesity)? @ -Kidney stones Was patient admitted / discharged? Hospital course, mention meds given and route, prescriptions, significant lab abnormalities, going to OR and other pertinent info. @ -Discharge. 49-year-old female with a significant past medical history of nephrolithiasis presenting to the ER for evaluation of left flank pain. Upon rooming, history and physical exam completed. Vitals within normal limits. Patient in no signs of acute distress. There is left CVA tenderness noted. No overlying skin changes. Laboratory studies obtained unremarkable. Urinalysis unimpressive and contaminated with 13 epithelial cells. Patient received symptomatic control in the ER, with improvement. Patient is stable for di [facility] with outpatient follow-up to PCP and urology. Patient is agreeable. Strict return parameters discussed. Patient discharged in stable condition with follow-up to PCP. Patient verbally expressed understanding and agreement with care plan. Case discussed with ED attending, Dr. Robert. Undiagnosed new problem with uncertain prognosis? @ -No Drug Therapy requiring intensive monitoring for toxicity (Heparin, Nitro, Insulin, Cardizem)? @ -No Were any procedures done? @ -No Diagnosis/symptom? @ -Left flank pain Acute, or Chronic, or Acute on Chronic? @ -Acute Uncomplicated (without systemic symptoms) or Complicated (systemic symptoms)? @ -Uncomplicated Side effects of treatment? @ -No Exacerbation, Progression, or Severe Exacerbation? @ -No Poses a threat to life or bodily function? How? (Chest pain, [place], [place], pneumonia, PE, COPD, DKA, ARF, appy, cholecystitis, CVA, Diverticulitis, Homicidal, Suicidal, threat to staff... and all critical care pts) @ -No - Lab Data Result diagrams: 06/20/24 06:30 06/20/24 06:30 Lab Results 06/20/24 06/20/24 06/20/24 Range/Units 06:30 06:30 06:30 WBC 8.6 (3.8-10.6) k/uL RBC 4.69 (3.80-5.40) m/uL Hgb 13.9 (11.4-16.0) gm/dL Hct 40.9 (34.0-46.0) % MCV 87.2 (80.0-100.0) fL MCH 29.7 (25.0-35.0) pg MCHC 34.1 (31.0-37.0) g/dL RDW 12.2 (11.5-15.5) % Plt Count 284 (150-450) k/uL MPV 6.9 Neutrophils % 48 % Lymphocytes % 38 % Monocytes % 4 % Eosinophils % 8 % Basophils % 1 % Neutrophils # 4.1 (1.3-7.7) k/uL Lymphocytes # 3.3 (1.0-4.8) k/uL Monocytes # 0.4 (0-1.0) k/uL Eosinophils # 0.7 (0-0.7) k/uL Basophils # 0.1 (0-0.2) k/uL Sodium 138 (137-145) mmol/L Potassium 3.8 (3.5-5.1) mmol/L Chloride 107 (98-107) mmol/L Carbon Dioxide 22 (22-30) mmol/L Anion Gap 9 mmol/L BUN 10 (7-17) mg/dL Creatinine 0.61 (0.52-1.04) mg/dL Est GFR (CKD-EPI)AfAm >90 (>60 ml/min/1.73 sqM) Est GFR (CKD-EPI)NonAf >90 (>60 ml/min/1.73 sqM) Glucose 91 (74-99) mg/dL Plasma Lactic Acid Brant 1.2 (0.7-2.0) mmol/L Calcium 9.3 (8.4-10.2) mg/dL Total Bilirubin 1.1 (0.2-1.3) mg/dL AST 22 (14-36) U/L ALT 12 (4-34) U/L Alkaline Phosphatase 51 (38-126) U/L Total Protein 6.7 (6.3-8.2) g/dL Albumin 4.3 (3.5-5.0) g/dL Urine Color Urine Appearance (Clear) Urine pH (5.0-8.0) Ur Specific [place] (1.001-1.035) Urine Protein (Negative) Urine Glucose (UA) (Negative) Urine Ketones (Negative) Urine Blood (Negative) Urine Nitrite (Negative) Urine Bilirubin (Negative) Urine Urobilinogen (<2.0) mg/dL Ur Leukocyte Esterase (Negative) Urine WBC (0-5) /hpf Ur Squamous Epith Cells (0-4) /hpf Calcium Oxalate Crystal (None) /hpf Urine Bacteria (None) /hpf Urine Mucus (None) /hpf 06/20/24 Range/Units 07:55 WBC (3.8-10.6) k/uL RBC (3.80-5.40) m/uL Hgb (11.4-16.0) gm/dL Hct (34.0-46.0) % MCV (80.0-100.0) fL MCH (25.0-35.0) pg MCHC (31.0-37.0) g/dL RDW (11.5-15.5) % Plt Count (150-450) k/uL MPV Neutrophils % % Lymphocytes % % Monocytes % % Eosinophils % % Basophils % % Neutrophils # (1.3-7.7) k/uL Lymphocytes # (1.0-4.8) k/uL Monocytes # (0-1.0) k/uL Eosinophils # (0-0.7) k/uL Basophils # (0-0.2) k/uL Sodium (137-145) mmol/L Potassium (3.5-5.1) mmol/L Chloride (98-107) mmol/L Carbon Dioxide (22-30) mmol/L Anion Gap mmol/L BUN (7-17) mg/dL Creatinine (0.52-1.04) mg/dL Est GFR (CKD-EPI)AfAm (>60 ml/min/1.73 sqM) Est GFR (CKD-EPI)NonAf (>60 ml/min/1.73 sqM) Glucose (74-99) mg/dL Plasma Lactic Acid Brant (0.7-2.0) mmol/L Calcium (8.4-10.2) mg/dL Total Bilirubin (0.2-1.3) mg/dL AST (14-36) U/L ALT (4-34) U/L Alkaline Phosphatase (38-126) U/L Total Protein (6.3-8.2) g/dL Albumin (3.5-5.0) g/dL Urine Color Yellow Urine Appearance Cloudy H (Clear) Urine pH 5.5 (5.0-8.0) Ur Specific [place] 1.029 (1.001-1.035) Urine Protein Trace H (Negative) Urine Glucose (UA) Negative (Negative) Urine Ketones Negative (Negative) Urine Blood Negative (Negative) Urine Nitrite Negative (Negative) Urine Bilirubin Negative (Negative) Urine Urobilinogen <2.0 (<2.0) mg/dL Ur Leukocyte Esterase Negative (Negative) Urine WBC 3 (0-5) /hpf Ur Squamous Epith Cells 13 H (0-4) /hpf Calcium Oxalate Crystal Few H (None) /hpf Urine Bacteria Rare H (None) /hpf Urine Mucus Many H (None) /hpf Disposition Clinical Impression: Left flank pain Disposition: HOME SELF-CARE Condition: Stable Additional Instructions: Follow-up with urologist. Return to the ER for any new or worsening symptoms. Is patient prescribed a controlled substance at d/c from ED?: No Referrals: Rajiv Sexton MD [Primary Care Provider] - 1-2 days Time of Disposition: 08:33
[2024-06-20] MEDS: SODIUM CHLORIDE 0.9% 1,000 ML IV STA (06:31)
[2024-06-20] MEDS: KETOROLAC 15 MG/ML 1 ML VIAL IVP STA (06:31)
[2024-06-20] MEDS: HYDROmorphone 1 MG/ML 1 ML SYRINGE IVP STA ×2 (06:32→09:08)
[2024-06-20] MEDS: ONDANSETRON 4 MG/2 ML VIAL IVP STA (06:32)
[2024-06-20 06:52] LABS: Basophils # (A) 0.1 k/uL (0-0.2); Basophils % (A) 1 %; Eosinophils # (A) 0.7 k/uL (0-0.7); Eosinophils % (A) 8 %; HCT 40.9 % (34.0-46.0); HGB 13.9 gm/dL (11.4-16.0); Lymphocytes # (A) 3.3 k/uL (1.0-4.8); Lymphocytes % (A) 38 %; MCH 29.7 pg (25.0-35.0); MCHC 34.1 g/dL (31.0-37.0); MCV 87.2 fL (80.0-100.0); Mean Platelet Volume 6.9; Monocytes # (A) 0.4 k/uL (0-1.0); Monocytes % (A) 4 %; Neutrophils # (A) 4.1 k/uL (1.3-7.7); Neutrophils % (A) 48 %; Platelet Count 284 k/uL (150-450); RBC 4.69 m/uL (3.80-5.40); RDW 12.2 % (11.5-15.5); WBC 8.6 k/uL (3.8-10.6)
[2024-06-20 07:10] LABS: ALT 12 U/L (4-34); AST 22 U/L (14-36); African American GFR (CKD) >90 (>60 ml/min/1.73 sqM); Albumin 4.3 g/dL (3.5-5.0); Alkaline Phosphatase 51 U/L (38-126); Anion Gap 9 mmol/L; Blood Urea Nitrogen 10 mg/dL (7-17); Calcium 9.3 mg/dL (8.4-10.2); Carbon Dioxide 22 mmol/L (22-30); Chloride 107 mmol/L (98-107); Glucose 91 mg/dL (74-99); Non-African American GFR(CKD) >90 (>60 ml/min/1.73 sqM); Potassium 3.8 mmol/L (3.5-5.1); Sodium 138 mmol/L (137-145); Total Bilirubin 1.1 mg/dL (0.2-1.3); Total Protein 6.7 g/dL (6.3-8.2)
[2024-06-20 08:16] LABS: Appearance,Urine Cloudy (Clear); Bacteria,Urine Rare /hpf; Bilirubin,Urine Negative (Negative); Blood,Urine Negative (Negative); Calcium Oxalate Crystals,Urine Few /hpf; Color,Urine Yellow; Glucose,Urine (UA) Negative (Negative); Ketones,Urine Negative (Negative); Leukocyte Esterase,Urine Negative (Negative); Mucus,Urine Many /hpf; Nitrite,Urine Negative (Negative); PH, Urine 5.5 (5.0-8.0); Protein,Urine Trace (Negative); Specific Gravity,Urine 1.029 (1.001-1.035); Squamous Epithelial Cell,Urine 13 /hpf (0-4); Urobilinogen,Urine <2.0 mg/dL (<2.0); WBC,Urine 3 /hpf (0-5)
[2024-06-20 09:20] VITALS: BP 108/75; PULSE 86; RESP 16; TEMP 97.8
== END 2024-06-20 09:20 | disposition home or self-care (01) ==
LOC: EC 04:02
DX: R10.32 Left lower quadrant pain (principal); Z87.442 Personal history of urinary calculi; F17.200 Nicotine dependence, unspecified, uncomplicated; Z88.2 Allergy status to sulfonamides; Z88.8 Allergy status to other drugs, medicaments and biological substances; Z88.0 Allergy status to penicillin; Z88.1 Allergy status to other antibiotic agents; Z91.041 Radiographic dye allergy status
CPT/HCPCS: 36415; 80053; 83605; 85025; 81001; 99284; 96374; 96375 ×2; 96376; 96361; J2405; J1171; J1885

== ENCOUNTER 2024-06-23 20:50 | Emergency (ER) | payer OTHER ==
[2024-06-23 20:57] VITALS: BP 142/87; PULSE 96; RESP 18; TEMP 97.6
--- NOTE | 2024-06-23 21:01 | ED ---
General Adult HPI - General Source: patient, RN notes reviewed Mode of arrival: ambulatory Limitations: no limitations <Shauna Vaughn - Last Filed: 06/23/24 21:00> <Jame Bishop - Last Filed: 06/24/24 01:10> - General Chief complaint: Abdominal Pain Stated complaint: L Flank Pain,Vomiting Time Seen by Provider: 06/23/24 21:00 - History of Present Illness Initial comments: Quick note: 49-year-old female presents to the emergency department for evaluation of left flank pain. Patient states that this is an ongoing issue. She reports that she has a known kidney stone is following up with urology for lithotripsy on . Patient admits to vomiting. (Shauna Vaughn) 49-year-old female with chronic flank pain presenting with left flank pain and reported episode of vomiting. Patient states she is following with urology out of [place] and is scheduled for lithotripsy. No fever. No anterior abdominal pain. (Jame Bishop) - Related Data Home Medications Medication Instructions Recorded Confirmed oxyCODONE-APAP 10-325MG [Percocet 1 tab PO QID PRN 08/29/17 05/03/23 10-325 mg] PARoxetine HCL [Paxil] 40 mg PO DAILY 03/12/18 05/03/23 PARoxetine [Paxil] 20 mg PO DAILY 06/04/18 05/03/23 Loratadine 10 mg PO DAILY 04/21/20 05/03/23 Dextroamphetamine/Amphetamine 20 mg PO BID 12/07/21 05/03/23 [Dextroamp-Amphetamin 20 mg Tab] Multivitamins, Thera [Multivitamin 1 tab PO DAILY 12/07/21 05/03/23 (formulary)] SUMAtriptan succinate [Imitrex] 100 mg PO DAILY PRN 12/07/21 05/03/23 Atorvastatin [Lipitor] 40 mg PO DAILY 05/03/23 05/03/23 Cholecalciferol [Vitamin D3 (25 25 mcg PO DAILY 05/03/23 05/03/23 Mcg = 1000 Iu)] Cyanocobalamin (Vitamin B-12) 1,000 mcg PO DAILY 05/03/23 05/03/23 [Vitamin B-12] Tirzepatide [Mounjaro] 12.5 mg SQ WE 05/03/23 05/03/23 lisinopriL [Zestril] 10 mg PO DAILY 05/03/23 05/03/23 metFORMIN HCL 1,000 mg PO BID 05/03/23 05/03/23 Previous Rx's Medication Instructions Recorded Ondansetron Odt [Zofran Odt] 4 mg PO Q8HR PRN #20 tab 09/06/22 Cephalexin [Keflex] 500 mg PO Q6HR 7 Days #28 cap 09/27/23 Fluconazole 150 mg PO DIRECTED #2 tab 09/27/23 Tamsulosin [Flomax] 0.4 mg PO DAILY 14 Days #14 cap 11/26/23 Prochlorperazine [Compazine] 10 mg PO Q8H #14 tab 04/15/24 Ondansetron Odt [Zofran Odt] 4 mg PO Q8HR PRN #20 tab 05/26/24 Allergies Allergy/AdvReac Type Severity Reaction Status Date / Time bupropion HCl Allergy Rash/Hives Verified 06/23/24 20:57 [From Wellbutrin] divalproex sodium Allergy Unknown Verified 06/23/24 20:57 [From Depakote] fentanyl Allergy Swelling Verified 06/23/24 20:57 Iodinated Contrast Media Allergy Anaphylaxis Verified 06/23/24 20:57 [Iodinated Contrast Media - IV Dye] orange juice [[place]] Allergy Rash/Hives Verified 06/23/24 20:57 Penicillins Allergy Rash/Hives/Gi Verified 06/23/24 20:57 Upset Sulfa (Sulfonamide Allergy Rash/Hives Verified 06/23/24 20:57 Antibiotics) sulfamethoxazole Allergy Rash/Hives Verified 06/23/24 20:57 [From Bactrim] trimethoprim [From Bactrim] Allergy Rash/Hives Verified 06/23/24 20:57 Review of Systems ROS Other: All systems not noted in ROS Statement are negative. <Shauna Vaughn - Last Filed: 06/23/24 21:00> ROS Other: All systems not noted in ROS Statement are negative. <Jame Bishop - Last Filed: 06/24/24 01:10> ROS Statement: Those systems with pertinent positive or pertinent negative responses have been documented in the HPI. 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 History of Any Multi-Drug Resistant Organisms: ESBL Date of last positivie culture/infection: 05/14/17 MDRO Source:: ESBL URINE, Past Surgical History: Bladder Surgery, Section, Cholecystectomy, Hysterectomy, Orthopedic Surgery, Tubal Ligation Additional Past Surgical History / Comment(s): R ovarian cystectomy, laparoscopic surgery for L ovary that had attached to the bowel, D&C, numerous lithotripsies, nephroscopies, cystoscopies and stents to ureters-none in place at this time, L robotic pyeloplasty with post op infection around kidney which then required a picc line/later removed (pt states was not MRSA), L rotator cuff repair, L wrist tendon surgery, colonoscopy. Kidney stone removal. Past Anesthesia/Blood Transfusion Reactions: Family History of Problems w/ Anesthesia Additional Past Anesthesia/Blood Transfusion Reaction / Comment(s): dad-hard time waking up due to enzyme problems in liver Past Psychological History: ADD/ADHD, Anxiety, Bipolar, Depression, PTSD Smoking Status: Current every day smoker Past Alcohol Use History: None Reported Past Drug Use History: None Reported - Past Family History Brother(s) Family Medical History: Cancer Additional Family Medical History / Comment(s): testicular Father Family Medical History: Coronary Artery Disease (CAD), CVA/TIA, Diabetes Mellitus, Renal Disease Additional Family Medical History / Comment(s): GLAUCOMA,NEUROPATHY HAD TRIPLE CABG, at 56yrs from renal disease. Mother Family Medical History: Hyperlipidemia Additional Family Medical History / Comment(s): DDD, HAD 3 vessel CABG AGE 54. <Shauna Vaughn - Last Filed: 06/23/24 21:00> General Exam Limitations: no limitations <Shauna Vaughn - Last Filed: 06/23/24 21:00> General appearance: alert, in no apparent distress Head exam: Present: atraumatic, normocephalic Eye exam: Present: normal appearance, PERRL ENT exam: Present: normal exam Neck exam: Present: normal inspection. Absent: tenderness, meningismus Respiratory exam: Present: normal lung sounds bilaterally. Absent: respiratory distress, wheezes Cardiovascular Exam: Present: regular rate, normal rhythm GI/Abdominal exam: Absent: distended Extremities exam: Present: normal inspection Back exam: Present: CVA tenderness (L) Neurological exam: Present: alert, oriented X3 Psychiatric exam: Present: normal affect, normal mood Skin exam: Present: warm, dry, intact <Jame Bishop - Last Filed: 06/24/24 01:10> - General Exam Comments Initial Comments: Visual Physical Exam Vital signs reviewed General: Well-appearing, nontoxic, no acute distress. Head: Normocephalic, atraumatic Eyes: PERRLA, EOMI ENT: Airway patent Chest: Nonlabored breathing Skin: No visual rash, normal skin tone Neuro: Alert and oriented 3 Musculoskeletal: No gross abnormalities (Shauna Vaughn) Course Vital Signs 06/23/24 20:55 Temperature 97.6 F Pulse Rate 96 Respiratory 18 Rate Blood Pressure 142/87 O2 Sat by Pulse 100 Oximetry Medical Decision Making <Shauna Vaughn - Last Filed: 06/23/24 21:00> <Jame Bishop - Last Filed: 06/24/24 01:10> - Medical Decision Making Quick note preformed and electronically signed by STUART Foster-C (Shauna Vaughn) Was pt. sent in by a medical professional or institution (STUART Yeager, INTELLIGENCE CONSULTANT, urgent care, hospital, or halfway...) When possible be specific @ -No Did you speak to anyone other than the patient for history (EMS, parent, family, police, friend...)? What history was obtained from this source @ -No Did you review nursing and triage notes (agree or disagree)? Why? @ -I reviewed and agree with nursing and triage notes Were old charts reviewed (outside hosp., previous admission, EMS record, old EKG, old radiological studies, urgent care reports/EKG's, halfway records)? Report findings @ -No old charts were reviewed Differential Abdominal Pain Women: Appendicitis, Cholecystitis, diverticulosis, ischemic bowel, pancreatitis, hepatitis, UTI, gastroenteritis, AAA, incarcerated hernia, bowel obstruction, constipation, inflammatory bowel, hepatitis, peptic ulcer disease, splenic infarction, perforated viscus, vulvitis, ovarian torsion, PID, kidney stone, placenta abruption, this is not meant to be an all-inclusive list EKG interpreted by me (3pts min.). @ -As above X-rays interpreted by me (1pt min.). @ -None done CT interpreted by me (1pt min.). @ -None done U/S interpreted by me (1pt. min.). @ -None done What testing was considered but not performed or refused? (CT, X-rays, U/S, labs)? Why? @ -None What meds were considered but not given or refused? Why? @ -None Did you discuss the management of the patient with other professionals (professionals i.e. , PA, INTELLIGENCE CONSULTANT, lab, RT, psych nurse, oncology social work, agribusiness internship, teacher, loss prevention officer, case supervisor)? Give summary @ -No Was smoking cessation discussed for >3mins.? @ -No Was critical care preformed (if so, how long)? @ -No Were there social determinants of health that impacted care today? How? (Homelessness, low income, unemployed, alcoholism, drug addiction, transportation, low edu. Level, literacy, decrease access to med. care, snf, rehab)? @ -No Was there de-escalation of care discussed even if they declined (Discuss DNR or withdrawal of care, Hospice)? DNR status @ -No What co-morbidities impacted this encounter? (DM, HTN, Smoking, COPD, CAD, Cancer, CVA, ARF, Chemo, Hep., AIDS, mental health diagnosis, sleep apnea, morbid obesity)? @ -Chronic flank pain 49-year-old female with chronic flank pain presenting with left flank pain. Vital signs are stable. Urinalysis does show no signs of infection. Hematuria patient given IV fluids, antiemetics and pain medication in the emergency department. She should continue to follow-up with her urologist. Was patient admitted / discharged? Hospital course, mention meds given and route, prescriptions, significant lab abnormalities, going to OR and other pertinent info. @ -Hospital course Undiagnosed new problem with uncertain prognosis? @ -No Drug Therapy requiring intensive monitoring for toxicity (Heparin, Nitro, Insulin, Cardizem)? @ -No Were any procedures done? @ -No Diagnosis/symptom? @ -[Chronic flank pain Acute, or Chronic, or Acute on Chronic? @ -Chronic Uncomplicated (without systemic symptoms) or Complicated (systemic symptoms)? @ -[default Side effects of treatment? @ -No Exacerbation, Progression, or Severe Exacerbation? @ -No Poses a threat to life or bodily function? How? (Chest pain, [place], [place], pneumonia, PE, COPD, DKA, ARF, appy, cholecystitis, CVA, Diverticulitis, Homicidal, Suicidal, threat to staff... and all critical care pts) @ -No (Jame Bishop) - Lab Data Lab Results 06/23/24 06/23/24 Range/Units 20:58 20:58 Urine Color Light Red Urine Appearance Cloudy H (Clear) Urine pH 6.0 (5.0-8.0) Ur Specific [place] 1.021 (1.001-1.035) Urine Protein Trace H (Negative) Urine Glucose (UA) Negative (Negative) Urine Ketones Negative (Negative) Urine Blood Large H (Negative) Urine Nitrite Negative (Negative) Urine Bilirubin Negative (Negative) Urine Urobilinogen <2.0 (<2.0) mg/dL Ur Leukocyte Esterase Moderate H (Negative) Urine RBC >182 H (0-5) /hpf Urine WBC 12 H (0-5) /hpf Ur Squamous Epith Cells 6 H (0-4) /hpf Urine Mucus Rare H (None) /hpf Urine HCG, Qual Not Detected (Not Detectd) Disposition <Shauna Vaughn - Last Filed: 06/23/24 21:00> Is patient prescribed a controlled substance at d/c from ED?: No Time of Disposition: 01:10 <Jame Bishop - Last Filed: 06/24/24 01:10> Clinical Impression: Renal colic on left side Disposition: HOME SELF-CARE Condition: Fair Instructions (If sedation given, give patient instructions): Flank Pain (ED) Referrals: Rajiv Sexton MD [Primary Care Provider] - 1-2 days
[2024-06-23 21:16] LABS: Appearance,Urine Cloudy (Clear); Bilirubin,Urine Negative (Negative); Blood,Urine Large (Negative); Color,Urine Light Red; Glucose,Urine (UA) Negative (Negative); Ketones,Urine Negative (Negative); Leukocyte Esterase,Urine Moderate (Negative); Mucus,Urine Rare /hpf; Nitrite,Urine Negative (Negative); Protein,Urine Trace (Negative); RBC,Urine >182 /hpf (0-5); Specific Gravity,Urine 1.021 (1.001-1.035); Squamous Epithelial Cell,Urine 6 /hpf (0-4); Urobilinogen,Urine <2.0 mg/dL (<2.0); WBC,Urine 12 /hpf (0-5)
[2024-06-24] MEDS: SODIUM CHLORIDE 0.9% 1,000 ML IV ONE (01:00)
[2024-06-24] MEDS: KETOROLAC 15 MG/ML 1 ML VIAL IVP STA (01:00)
[2024-06-24] MEDS: ONDANSETRON 4 MG/2 ML VIAL IVP STA (01:01)
== END 2024-06-24 01:45 | disposition home or self-care (01) ==
LOC: EC 20:50
DX: N23 Unspecified renal colic (principal); F17.200 Nicotine dependence, unspecified, uncomplicated; Z91.041 Radiographic dye allergy status; Z88.0 Allergy status to penicillin; Z88.2 Allergy status to sulfonamides; Z88.1 Allergy status to other antibiotic agents; Z88.8 Allergy status to other drugs, medicaments and biological substances; Z91.018 Allergy to other foods
CPT/HCPCS: 81001; 81025; 87086; 96361; 96374; 96375; 99284

== ENCOUNTER 2024-06-26 01:53 | Emergency (ER) | payer OTHER ==
[2024-06-26 02:10] VITALS: TEMP 98.9
--- NOTE | 2024-06-26 02:24 | ED ---
Abdominal Pain HPI - General Chief Complaint: Abdominal Pain Stated Complaint: Kidney Stone Time Seen by Provider: 06/26/24 02:24 Source: patient, RN notes reviewed, old records reviewed Mode of arrival: ambulatory Limitations: no limitations - History of Present Illness Initial Comments: 49-year-old female presented to ER for evaluation of left flank pain. Patient is well-known to the ER and has chronic left flank pain due to kidney stones. She is following up with a urologist out of [facility]. Patient states she was seen here 2 days prior for similar complaints. She received symptomatic control at that time and was discharged home. Since then she has been unable to keep things down with nausea, vomiting and increase in pain. She has been taking prescribed Toradol, Percocet, Zofran without relief. Patient admits to chills and possible low-grade fevers but states she did not take her temperature at home. Patient denies any chest pain, shortness of breath, cough, congestion, anterior abdominal discomfort, constipation/diarrhea or peripheral edema. - Related Data Home Medications Medication Instructions Recorded Confirmed oxyCODONE-APAP 10-325MG [Percocet 1 tab PO QID PRN 08/29/17 05/03/23 10-325 mg] PARoxetine HCL [Paxil] 40 mg PO DAILY 03/12/18 05/03/23 PARoxetine [Paxil] 20 mg PO DAILY 06/04/18 05/03/23 Loratadine 10 mg PO DAILY 04/21/20 05/03/23 Dextroamphetamine/Amphetamine 20 mg PO BID 12/07/21 05/03/23 [Dextroamp-Amphetamin 20 mg Tab] Multivitamins, Thera [Multivitamin 1 tab PO DAILY 12/07/21 05/03/23 (formulary)] SUMAtriptan succinate [Imitrex] 100 mg PO DAILY PRN 12/07/21 05/03/23 Atorvastatin [Lipitor] 40 mg PO DAILY 05/03/23 05/03/23 Cholecalciferol [Vitamin D3 (25 25 mcg PO DAILY 05/03/23 05/03/23 Mcg = 1000 Iu)] Cyanocobalamin (Vitamin B-12) 1,000 mcg PO DAILY 05/03/23 05/03/23 [Vitamin B-12] Tirzepatide [Mounjaro] 12.5 mg SQ WE 05/03/23 05/03/23 lisinopriL [Zestril] 10 mg PO DAILY 05/03/23 05/03/23 metFORMIN HCL 1,000 mg PO BID 05/03/23 05/03/23 Previous Rx's Medication Instructions Recorded Ondansetron Odt [Zofran Odt] 4 mg PO Q8HR PRN #20 tab 09/06/22 Cephalexin [Keflex] 500 mg PO Q6HR 7 Days #28 cap 09/27/23 Fluconazole 150 mg PO DIRECTED #2 tab 09/27/23 Tamsulosin [Flomax] 0.4 mg PO DAILY 14 Days #14 cap 11/26/23 Prochlorperazine [Compazine] 10 mg PO Q8H #14 tab 04/15/24 Ondansetron Odt [Zofran Odt] 4 mg PO Q8HR PRN #20 tab 05/26/24 Allergies Allergy/AdvReac Type Severity Reaction Status Date / Time bupropion HCl Allergy Rash/Hives Verified 06/26/24 02:10 [From Wellbutrin] divalproex sodium Allergy Unknown Verified 06/26/24 02:10 [From Depakote] fentanyl Allergy Swelling Verified 06/26/24 02:10 Iodinated Contrast Media Allergy Anaphylaxis Verified 06/26/24 02:10 [Iodinated Contrast Media - IV Dye] orange juice [Pamlico] Allergy Rash/Hives Verified 06/26/24 02:10 Penicillins Allergy Rash/Hives/Gi Verified 06/26/24 02:10 Upset Sulfa (Sulfonamide Allergy Rash/Hives Verified 06/26/24 02:10 Antibiotics) sulfamethoxazole Allergy Rash/Hives Verified 06/26/24 02:10 [From Bactrim] trimethoprim [From Bactrim] Allergy Rash/Hives Verified 06/26/24 02:10 Review of Systems ROS Statement: Those systems with pertinent positive or pertinent negative responses have been documented in the HPI. ROS Other: All systems not noted in ROS Statement are negative. 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 History of Any Multi-Drug Resistant Organisms: ESBL Date of last positivie culture/infection: 05/14/17 MDRO Source:: ESBL URINE, Past Surgical History: Bladder Surgery, Section, Cholecystectomy, Hysterectomy, Orthopedic Surgery, Tubal Ligation Additional Past Surgical History / Comment(s): R ovarian cystectomy, laparoscopic surgery for L ovary that had attached to the bowel, D&C, numerous lithotripsies, nephroscopies, cystoscopies and stents to ureters-none in place at this time, L robotic pyeloplasty with post op infection around kidney which then required a picc line/later removed (pt states was not MRSA), L rotator cuff repair, L wrist tendon surgery, colonoscopy. Kidney stone removal. Past Anesthesia/Blood Transfusion Reactions: Family History of Problems w/ Anesthesia Additional Past Anesthesia/Blood Transfusion Reaction / Comment(s): dad-hard time waking up due to enzyme problems in liver Past Psychological History: ADD/ADHD, Anxiety, Bipolar, Depression, PTSD Smoking Status: Current every day smoker Past Alcohol Use History: None Reported Past Drug Use History: None Reported - Past Family History Brother(s) Family Medical History: Cancer Additional Family Medical History / Comment(s): testicular Father Family Medical History: Coronary Artery Disease (CAD), CVA/TIA, Diabetes M ellitus, Renal Disease Additional Family Medical History / Comment(s): GLAUCOMA,NEUROPATHY HAD TRIPLE CABG, at 56yrs from renal disease. Mother Family Medical History: Hyperlipidemia Additional Family Medical History / Comment(s): DDD, HAD 3 vessel CABG AGE 54. General Exam Limitations: no limitations General appearance: alert, in no apparent distress Respiratory exam: Present: normal lung sounds bilaterally. Absent: respiratory distress, wheezes, rales, rhonchi, stridor Cardiovascular Exam: Present: regular rate, normal rhythm, normal heart sounds. Absent: systolic murmur, diastolic murmur, rubs, gallop, clicks GI/Abdominal exam: Present: soft, normal bowel sounds. Absent: distended, tenderness, guarding, rebound, rigid Back exam: Present: CVA tenderness (L) Neurological exam: Present: alert, oriented X3, CN II-XII intact Skin exam: Present: warm, dry, intact, normal color. Absent: rash Course Vital Signs 06/26/24 06/26/24 02:08 04:51 Temperature 98.9 F 98.9 F Pulse Rate 76 87 Respiratory 16 19 Rate Blood Pressure 134/84 131/70 O2 Sat by Pulse 100 98 Oximetry Medical Decision Making - Medical Decision Making Was pt. sent in by a medical professional or institution (, PA, CONSTRUCTION ASSISTANT, urgent care, hospital, or prison...) When possible be specific @ -No Did you speak to anyone other than the patient for history (EMS, parent, family, police, friend...)? What history was obtained from this source @ -No Did you review nursing and triage notes (agree or disagree)? Why? @ -I reviewed and agree with nursing and triage notes Were old charts reviewed (outside hosp., previous admission, EMS record, old EKG, old radiological studies, urgent care reports/EKG's, prison records)? Report findings @ -Yes, I reviewed ER visit and laboratory studies from 06-24-2024. Patient seen here for similar complaint and was discharged home after symptomatic control. Differential Diagnosis (chest pain, altered mental status, abdominal pain women, abdominal pain men, vaginal bleeding, weakness, fever, dyspnea, syncope, headache, dizziness, GI bleed, back pain, seizure, CVA, palpatations, mental health, musculoskeletal)? @ -Differential Back Pain:Strain, zoster, cauda equina syndrome, epidural abscess, vertebral osteomyelitis, discitis, fracture, subluxation, disc herniation, DJD, spinal stenosis, dissection, AAA, pancreatitis, peptic ulcer disease, pyelonephritis, kidney stone, this is not meant to be an all-inclusive list. EKG interpreted by me (3pts min.). @ -None done X-rays interpreted by me (1pt min.). @ -None done CT interpreted by me (1pt min.). @ -None done U/S interpreted by me (1pt. min.). @ -None done What testing was considered but not performed or refused? (CT, X-rays, U/S, labs)? Why? @ -Patient refusing CT at this time given patient's history and known kidney stones. What meds were considered but not given or refused? Why? @ -None Did you discuss the management of the patient with other professionals (pro fessionals i.e. , PA, CONSTRUCTION ASSISTANT, lab, RT, psych nurse, social problems specialist, high school hvac r instructor, teacher, chief technical officer, pillowcase sewer)? Give summary @ -No Was smoking cessation discussed for >3mins.? @ -No Was critical care preformed (if so, how long)? @ -No Were there social determinants of health that impacted care today? How? (Homelessness, low income, unemployed, alcoholism, drug addiction, transportation, low edu. Level, literacy, decrease access to med. care, nursing home, rehab)? @ -No Was there de-escalation of care discussed even if they declined (Discuss DNR or withdrawal of care, Hospice)? DNR status @ -No What co-morbidities impacted this encounter? (DM, HTN, Smoking, COPD, CAD, Cancer, CVA, ARF, Chemo, Hep., AIDS, mental health diagnosis, sleep apnea, morbid obesity)? @ -Nephrolithiasis Was patient admitted / discharged? Hospital course, mention meds given and route, prescriptions, significant lab abnormalities, going to OR and other pertinent info. @ -Discharge. 49-year-old female presented to the ER for evaluation of left flank pain. Patient has extensive history of kidney stones and followed up with urology out of [place]. Upon rooming, history and physical exam completed. Vitals within normal limits. Patient in no signs of acute distress. Left CVA tenderness. No abdominal tenderness. Laboratory studies including CBC, CMP, lactic and UA will be obtained along with symptomatic treatment. Laboratory studies unremarkable. Urinalysis hemorrhagic with greater than 182 RBCs and l arge blood, likely due to kidney stone. Urine sent for culture. Antibiotics held until urine culture as patient denies dysuria, no white count or fevers. HCG negative. Patient received symptomatic control in the ER with IV fluids and Dilaudid. Upon reevaluation, patient watching video on phone no signs of acute distress. Results discussed with patient, all questions answered. Patient reported improvement of pain. Patient is eager and stable for discharge. Instructed her to follow-up with urology in the next 24 to 48 hours. Strict return parameters discussed. Patient discharged in stable condition with follow-up to PCP. Patient verbally expressed understanding and agreement with care plan. Case discussed with ED attending, Dr. Prajapati Undiagnosed new problem with uncertain prognosis? @ -No Drug Therapy requiring intensive monitoring for toxicity (Heparin, Nitro, Insulin, Cardizem)? @ -No Were any procedures done? @ -No Diagnosis/symptom? @ -Flank pain Acute, or Chronic, or Acute on Chronic? @ -Chronic Uncomplicated (without systemic symptoms) or Complicated (systemic symptoms)? @ -Uncomplicated Side effects of treatment? @ -No Exacerbation, Progression, or Severe Exacerbation? @ -No Poses a threat to life or bodily function? How? (Chest pain, USA, OR, pneumonia, PE, COPD, DKA, ARF, appy, cholecystitis, CVA, Diverticulitis, Homicidal, Suicidal, threat to staff... and all critical care pts) @ -No - Lab Data Result diagrams: 06/26/24 03:03 06/26/24 03:03 Lab Results 06/26/24 06/26/24 06/26/24 Range/Units 02:41 02:41 03:03 WBC 7.5 (3.8-10.6) k/uL RBC 4.13 (3.80-5.40) m/uL Hgb 12.6 (11.4-16.0) gm/dL Hct 35.8 (34.0-46.0) % MCV 86.6 (80.0-100.0) fL MCH 30.5 (25.0-35.0) pg MCHC 35.2 (31.0-37.0) g/dL RDW 12.8 (11.5-15.5) % Plt Count 286 (150-450) k/uL MPV 7.7 Neutrophils % 43 % Lymphocytes % 47 % Monocytes % 4 % Eosinophils % 5 % Basophils % 1 % Neutrophils # 3.2 (1.3-7.7) k/uL Lymphocytes # 3.5 (1.0-4.8) k/uL Monocytes # 0.3 (0-1.0) k/uL Eosinophils # 0.3 (0-0.7) k/uL Basophils # 0.0 (0-0.2) k/uL Sodium (137-145) mmol/L Potassium (3.5-5.1) mmol/L Chloride (98-107) mmol/L Carbon Dioxide (22-30) mmol/L Anion Gap mmol/L BUN (7-17) mg/dL Creatinine (0.52-1.04) mg/dL Est GFR (CKD-EPI)AfAm (>60 ml/min/1.73 sqM) Est GFR (CKD-EPI)NonAf (>60 ml/min/1.73 sqM) Glucose (74-99) mg/dL Plasma Lactic Acid Brant (0.7-2.0) mmol/L Calcium (8.4-10.2) mg/dL Total Bilirubin (0.2-1.3) mg/dL AST (14-36) U/L ALT (4-34) U/L Alkaline Phosphatase (38-126) U/L Total Protein (6.3-8.2) g/dL Albumin (3.5-5.0) g/dL Urine Color Red Urine Appearance Cloudy H (Clear) Urine pH 6.0 (5.0-8.0) Ur Specific Lomax 1.023 (1.001-1.035) Urine Protein 1+ H (Negative) Urine Glucose (UA) Negative (Negative) Urine Ketones Trace H (Negative) Urine Blood Large H (Negative) Urine Nitrite Negative (Negative) Urine Bilirubin Negative (Negative) Urine Urobilinogen 2.0 (<2.0) mg/dL Ur Leukocyte Esterase Small H (Negative) Urine RBC >182 H (0-5) /hpf Ur Squamous Epith Cells 8 H (0-4) /hpf Urine Mucus Few H (None) /hpf Urine HCG, Qual Not Detected (Not Detectd) Influenza Type A (PCR) (Not Detectd) Influenza Type B (PCR) (Not Detectd) RSV (PCR) (Not Detectd) SARS-CoV-2 (PCR) (Not Detectd) 06/26/24 06/26/24 06/26/24 Range/Units 03:03 03:03 03:03 WBC (3.8-10.6) k/uL RBC (3.80-5.40) m/uL Hgb (11.4-16.0) gm/dL Hct (34.0-46.0) % MCV (80.0-100.0) fL MCH (25.0-35.0) pg MCHC (31.0-37.0) g/dL RDW (11.5-15.5) % Plt Count (150-450) k/uL MPV Neutrophils % % Lymphocytes % % Monocytes % % Eosinophils % % Basophils % % Neutrophils # (1.3-7.7) k/uL Lymphocytes # (1.0-4.8) k/uL Monocytes # (0-1.0) k/uL Eosinophils # (0-0.7) k/uL Basophils # (0-0.2) k/uL Sodium 140 (137-145) mmol/L Potassium 3.4 L (3.5-5.1) mmol/L Chloride 105 (98-107) mmol/L Carbon Dioxide 26 (22-30) mmol/L Anion Gap 9 mmol/L BUN 14 (7-17) mg/dL Creatinine 0.63 (0.52-1.04) mg/dL Est GFR (CKD-EPI)AfAm >90 (>60 ml/min/1.73 sqM) Est GFR (CKD-EPI)NonAf >90 (>60 ml/min/1.73 sqM) Glucose 71 L (74-99) mg/dL Plasma Lactic Acid Brant 1.4 (0.7-2.0) mmol/L Calcium 9.4 (8.4-10.2) mg/dL Total Bilirubin 1.2 (0.2-1.3) mg/dL AST 29 (14-36) U/L ALT 12 (4-34) U/L Alkaline Phosphatase 65 (38-126) U/L Total Protein 6.6 (6.3-8.2) g/dL Albumin 4.2 (3.5-5.0) g/dL Urine Color Urine Appearance (Clear) Urine pH (5.0-8.0) Ur Specific Lomax (1.001-1.035) Urine Protein (Negative) Urine Glucose (UA) (Negative) Urine Ketones (Negative) Urine Blood (Negative) Urine Nitrite (Negative) Urine Bilirubin (Negative) Urine Urobilinogen (<2.0) mg/dL Ur Leukocyte Esterase (Negative) Urine RBC (0-5) /hpf Ur Squamous Epith Cells (0-4) /hpf Urine Mucus (None) /hpf Urine HCG, Qual (Not Detectd) Influenza Type A (PCR) Not Detected (Not Detectd) Influenza Type B (PCR) Not Detected (Not Detectd) RSV (PCR) Not Detected (Not Detectd) SARS-CoV-2 (PCR) Not Detected (Not Detectd) Disposition Clinical Impression: Left flank pain, chronic Disposition: HOME SELF-CARE Condition: Stable Additional Instructions: Follow-up with urologist as scheduled. Return to the ER for any new or worsening concerns. Is patient prescribed a controlled substance at d/c from ED?: No Referrals: Rajiv Sexton MD [Primary Care Provider] - 1-2 days Time of Disposition: 04:00
[2024-06-26] MEDS: HYDROmorphone 1 MG/ML 1 ML SYRINGE IVP STA (02:50)
[2024-06-26] MEDS: KETOROLAC 15 MG/ML 1 ML VIAL IVP STA (02:52)
[2024-06-26] MEDS: ONDANSETRON 4 MG/2 ML VIAL IVP STA (02:52)
[2024-06-26] MEDS: SODIUM CHLORIDE 0.9% 1,000 ML IV STA (02:53)
[2024-06-26 03:01] LABS: Appearance,Urine Cloudy (Clear); Bilirubin,Urine Negative (Negative); Blood,Urine Large (Negative); Color,Urine Red; Glucose,Urine (UA) Negative (Negative); Ketones,Urine Trace (Negative); Leukocyte Esterase,Urine Small (Negative); Mucus,Urine Few /hpf; Nitrite,Urine Negative (Negative); Protein,Urine 1+ (Negative); RBC,Urine >182 /hpf (0-5); Specific Gravity,Urine 1.023 (1.001-1.035); Squamous Epithelial Cell,Urine 8 /hpf (0-4)
[2024-06-26 03:11] LABS: Basophils % (A) 1 %; Eosinophils # (A) 0.3 k/uL (0-0.7); Eosinophils % (A) 5 %; HCT 35.8 % (34.0-46.0); HGB 12.6 gm/dL (11.4-16.0); Lymphocytes # (A) 3.5 k/uL (1.0-4.8); Lymphocytes % (A) 47 %; MCH 30.5 pg (25.0-35.0); MCHC 35.2 g/dL (31.0-37.0); MCV 86.6 fL (80.0-100.0); Mean Platelet Volume 7.7; Monocytes # (A) 0.3 k/uL (0-1.0); Monocytes % (A) 4 %; Neutrophils # (A) 3.2 k/uL (1.3-7.7); Neutrophils % (A) 43 %; Platelet Count 286 k/uL (150-450); RBC 4.13 m/uL (3.80-5.40); RDW 12.8 % (11.5-15.5); WBC 7.5 k/uL (3.8-10.6)
[2024-06-26 03:25] LABS: ALT 12 U/L (4-34); AST 29 U/L (14-36); African American GFR (CKD) >90 (>60 ml/min/1.73 sqM); Albumin 4.2 g/dL (3.5-5.0); Alkaline Phosphatase 65 U/L (38-126); Anion Gap 9 mmol/L; Blood Urea Nitrogen 14 mg/dL (7-17); Calcium 9.4 mg/dL (8.4-10.2); Carbon Dioxide 26 mmol/L (22-30); Chloride 105 mmol/L (98-107); Glucose 71 mg/dL (74-99); Non-African American GFR(CKD) >90 (>60 ml/min/1.73 sqM); Potassium 3.4 mmol/L (3.5-5.1); Sodium 140 mmol/L (137-145); Total Bilirubin 1.2 mg/dL (0.2-1.3); Total Protein 6.6 g/dL (6.3-8.2)
[2024-06-26] MEDS: HYDROmorphone 0.5 MG/0.5 ML SYRINGE IVP STA (04:25)
[2024-06-26 04:53] VITALS: BP 131/70; PULSE 87; RESP 19
== END 2024-06-26 04:52 | disposition home or self-care (01) ==
LOC: EC 01:53
DX: R10.32 Left lower quadrant pain (principal); N20.0 Calculus of kidney; F17.200 Nicotine dependence, unspecified, uncomplicated; Z88.0 Allergy status to penicillin; Z88.1 Allergy status to other antibiotic agents; Z88.2 Allergy status to sulfonamides; Z88.5 Allergy status to narcotic agent; Z91.018 Allergy to other foods; Z91.041 Radiographic dye allergy status; Z88.8 Allergy status to other drugs, medicaments and biological substances
CPT/HCPCS: 36415; 80053; 83605; 85025; 81001; 81025; 87086; 87636; 99284; 96374; 96375; 96376; 96361; J2405; J1171 ×2; J1885

== ENCOUNTER 2024-08-25 04:38 | Emergency (ER) | payer OTHER ==
[2024-08-25] MEDS: ONDANSETRON 4 MG/2 ML VIAL IVP STA (06:22)
[2024-08-25] MEDS: HYDROmorphone 1 MG/ML 1 ML SYRINGE IVP STA (06:22)
[2024-08-25] MEDS: diphenhydrAMINE 50 MG/ML 1 ML VIAL IVP STA (06:22)
[2024-08-25] MEDS: KETOROLAC 15 MG/ML 1 ML VIAL IVP STA (06:23)
[2024-08-25] MEDS: SODIUM CHLORIDE 0.9% 1,000 ML IV STA (06:24)
[2024-08-25 06:52] LABS: Appearance,Urine Cloudy (Clear); Bilirubin,Urine Negative (Negative); Blood,Urine Large (Negative); Color,Urine Light Red; Glucose,Urine (UA) Negative (Negative); Ketones,Urine Negative (Negative); Leukocyte Esterase,Urine Small (Negative); Mucus,Urine Rare /hpf; Nitrite,Urine Negative (Negative); PH, Urine 5.5 (5.0-8.0); Protein,Urine Trace (Negative); RBC,Urine >182 /hpf (0-5); Specific Gravity,Urine 1.018 (1.001-1.035); Squamous Epithelial Cell,Urine 3 /hpf (0-4); Urobilinogen,Urine <2.0 mg/dL (<2.0); WBC,Urine 82 /hpf (0-5)
[2024-08-25 07:04] LABS: HCT 41.2 % (34.0-46.0); HGB 13.6 gm/dL (11.4-16.0); RBC 4.66 m/uL (3.80-5.40); WBC 7.1 k/uL (3.8-10.6)
[2024-08-25 07:05] LABS: Basophils # (A) 0.1 k/uL (0-0.2); Basophils % (A) 1 %; Eosinophils # (A) 0.2 k/uL (0-0.7); Eosinophils % (A) 3 %; Lymphocytes # (A) 3.3 k/uL (1.0-4.8); Lymphocytes % (A) 47 %; MCH 29.2 pg (25.0-35.0); MCV 88.3 fL (80.0-100.0); Mean Platelet Volume 7.4; Monocytes # (A) 0.3 k/uL (0-1.0); Monocytes % (A) 5 %; Neutrophils % (A) 43 %; Platelet Count 261 k/uL (150-450); RDW 11.9 % (11.5-15.5)
--- NOTE | 2024-08-25 07:09 | XR ---
EXAMINATION TYPE: XR KUB DATE OF EXAM: 08/25/2024 6:38 AM COMPARISON: 07/30/2024 CLINICAL INDICATION: Female, 49 years old with history of abdominal pain, TECHNIQUE: Single view of the abdomen. FINDINGS: Small bowel demonstrates no evidence for dilatation or air fluid levels. Gas and fecal material is seen in non-distended colon. No convincing evidence for pneumoperitoneum. No unusual calcifications. The lung bases are clear. The osseous structures are intact. IMPRESSION: 1. Overall nonobstructive bowel gas pattern. [facility], , 08/25/2024 7:07 AM
[2024-08-25 07:27] LABS: ALT 12 U/L (4-34); AST 19 U/L (14-36); African American GFR (CKD) >90 (>60 ml/min/1.73 sqM); Albumin 4.3 g/dL (3.5-5.0); Alkaline Phosphatase 56 U/L (38-126); Anion Gap 10 mmol/L; Blood Urea Nitrogen 12 mg/dL (7-17); Calcium 9.3 mg/dL (8.4-10.2); Carbon Dioxide 23 mmol/L (22-30); Chloride 105 mmol/L (98-107); Glucose 68 mg/dL (74-99); Lipase 94 U/L (23-300); Non-African American GFR(CKD) >90 (>60 ml/min/1.73 sqM); Potassium 3.9 mmol/L (3.5-5.1); Sodium 138 mmol/L (137-145); Total Bilirubin 1.2 mg/dL (0.2-1.3); Total Protein 6.8 g/dL (6.3-8.2)
[2024-08-25 07:45] VITALS: RESP 18
--- NOTE | 2024-08-25 08:45 | ED ---
General Adult HPI - General Chief complaint: Abdominal Pain Stated complaint: L side pain Time Seen by Provider: 08/25/24 05:02 Source: patient, RN notes reviewed Mode of arrival: ambulatory Limitations: no limitations - History of Present Illness Initial comments: Patient is a 49-year-old female present to the emergency department with chronic left leg pain. Original assessment and orders done by Dr. Prajapati however chart was not done and I am completing it at this time. Patient states discomfort is chronic. No change. Patient states she does have an appointment with her urologist in 2 days with potential surgical removal of stone. Patient states she has had nausea. Discomfort is left flank, similar to chronic. No fever. - Related Data Home Medications Medication Instructions Recorded Confirmed oxyCODONE-APAP 10-325MG [Percocet 1 tab PO QID PRN 08/29/17 05/03/23 10-325 mg] PARoxetine HCL [Paxil] 40 mg PO DAILY 03/12/18 05/03/23 PARoxetine [Paxil] 20 mg PO DAILY 06/04/18 05/03/23 Loratadine 10 mg PO DAILY 04/21/20 05/03/23 Dextroamphetamine/Amphetamine 20 mg PO BID 12/07/21 05/03/23 [Dextroamp-Amphetamin 20 mg Tab] Multivitamins, Thera [Multivitamin 1 tab PO DAILY 12/07/21 05/03/23 (formulary)] SUMAtriptan succinate [Imitrex] 100 mg PO DAILY PRN 12/07/21 05/03/23 Atorvastatin [Lipitor] 40 mg PO DAILY 05/03/23 05/03/23 Cholecalciferol [Vitamin D3 (25 25 mcg PO DAILY 05/03/23 05/03/23 Mcg = 1000 Iu)] Cyanocobalamin (Vitamin B-12) 1,000 mcg PO DAILY 05/03/23 05/03/23 [Vitamin B-12] Tirzepatide [Mounjaro] 12.5 mg SQ WE 05/03/23 05/03/23 lisinopriL [Zestril] 10 mg PO DAILY 05/03/23 05/03/23 metFORMIN HCL 1,000 mg PO BID 05/03/23 05/03/23 Previous Rx's Medication Instructions Recorded Ondansetron Odt [Zofran Odt] 4 mg PO Q8HR PRN #20 tab 09/06/22 Cephalexin [Keflex] 500 mg PO Q6HR 7 Days #28 cap 09/27/23 Fluconazole 150 mg PO DIRECTED #2 tab 09/27/23 Tamsulosin [Flomax] 0.4 mg PO DAILY 14 Days #14 cap 11/26/23 Prochlorperazine [Compazine] 10 mg PO Q8H #14 tab 04/15/24 Ondansetron Odt [Zofran Odt] 4 mg PO Q8HR PRN #20 tab 05/26/24 Cephalexin [Keflex] 500 mg PO QID #40 cap 08/25/24 Allergies Allergy/AdvReac Type Severity Reaction Status Date / Time bupropion HCl Allergy Rash/Hives Verified 08/25/24 04:49 [From Wellbutrin] divalproex sodium Allergy Unknown Verified 08/25/24 04:49 [From Depakote] fentanyl Allergy Swelling Verified 08/25/24 04:49 Iodinated Contrast Media Allergy Anaphylaxis Verified 08/25/24 04:49 [Iodinated Contrast Media - IV Dye] orange juice [[place]] Allergy Rash/Hives Verified 08/25/24 04:49 Penicillins Allergy Rash/Hives/Gi Verified 08/25/24 04:49 Upset Sulfa (Sulfonamide Allergy Rash/Hives Verified 08/25/24 04:49 Antibiotics) sulfamethoxazole Allergy Rash/Hives Verified 08/25/24 04:49 [From Bactrim] trimethoprim [From Bactrim] Allergy Rash/Hives Verified 08/25/24 04:49 Review of Systems ROS Statement: Those systems with pertinent positive or pertinent negative responses have been documented in the HPI. ROS Other: All systems not noted in ROS Statement are negative. 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 History of Any Multi-Drug Resistant Organisms: ESBL Date of last positivie culture/infection: 05/14/17 MDRO Source:: ESBL URINE, Past Surgical History: Bladder Surgery, Section, Cholecystectomy, Hysterectomy, Orthopedic Surgery, Tubal Ligation Additional Past Surgical History / Comment(s): R ovarian cystectomy, laparoscopic surgery for L ovary that had attached to the bowel, D&C, numerous lithotripsies, nephroscopies, cystoscopies and stents to ureters-none in place at this time, L robotic pyeloplasty with post op infection around kidney which then required a picc line/later removed (pt states was not MRSA), L rotator cuff repair, L wrist tendon surgery, colonoscopy. Kidney stone removal. Past Anesthesia/Blood Transfusion Reactions: Family History of Problems w/ Anesthesia Additional Past Anesthesia/Blood Transfusion Reaction / Comment(s): dad-hard time waking up due to enzyme problems in liver Past Psychological History: ADD/ADHD, Anxiety, Bipolar, Depression, PTSD Smoking Status: Current every day smoker Past Alcohol Use History: None Reported Past Drug Use History: None Reported - Past Family History Brother(s) Family Medical History: Cancer Additional Family Medical History / Comment(s): testicular Father Family Medical History: Coronary Artery Disease (CAD), CVA/TIA, Diabetes Mellitus, Renal Disease Additional Family Medical History / Comment(s): GLAUCOMA,NEUROPATHY HAD TRIPLE CABG, at 56yrs from renal disease. Mother Family Medical History: Hyperlipidemia Additional Family Medical History / Comment(s): DDD, HAD 3 vessel CABG AGE 54. General Exam Limitations: no limitations General appearance: alert, in no apparent distress Head exam: Present: normocephalic Eye exam: Present: normal appearance Neck exam: Present: normal inspection Respiratory exam: Present: normal lung sounds bilaterally Cardiovascular Exam: Present: regular rate, normal rhythm Expanded Peripheral pulses: 2+: Radial (R), Radial (L), Posterior Tibialis (R), Posterior Tibialis (L) GI/Abdominal exam: Present: soft. Absent: distended, tenderness Extremities exam: Present: normal inspection. Absent: pedal edema, calf tenderness Back exam: Present: CVA tenderness (L) Neurological exam: Present: alert Psychiatric exam: Present: normal affect, normal mood Skin exam: Present: normal color Course Vital Signs 08/25/24 08/25/24 04:49 07:43 Temperature 97.3 F L Pulse Rate 82 73 Respiratory 16 18 Rate Blood Pressure 125/83 143/88 O2 Sat by Pulse 100 99 Oximetry Medical Decision Making - Medical Decision Making Was pt. sent in by a medical professional or institution (, PA, [employer], urgent care, hospital, or senior care...) When possible be specific @ -No Did you speak to anyone other than the patient for history (EMS, parent, family, police, friend...)? What history was obtained from this source @ -No Did you review nursing and triage notes (agree or disagree)? Why? @ -I reviewed and agree with nursing and triage notes Were old charts reviewed (outside hosp., previous admission, EMS record, old E KG, old radiological studies, urgent care reports/EKG's, senior care records)? Report findings @ -Multiple previous charts reviewed Differential Diagnosis (chest pain, altered mental status, abdominal pain women, abdominal pain men, vaginal bleeding, weakness, fever, dyspnea, syncope, headache, dizziness, GI bleed, back pain, seizure, CVA, palpatations, mental health, musculoskeletal)? @ -Differential Abdominal Pain Women: Appendicitis, Cholecystitis, diverticulosis, ischemic bowel, pancreatitis, hepatitis, UTI, gastroenteritis, AAA, incarcerated hernia, bowel obstruction, constipation, inflammatory bowel, hepatitis, peptic ulcer disease, splenic infarction, perforated viscus, vulvitis, ovarian torsion, PID, kidney stone, placenta abruption, this is not meant to be an all-inclusive list EKG interpreted by me (3pts min.). @ -As above X-rays interpreted by me (1pt min.). @ -Abdominal x-ray shows no acute abnormality CT interpreted by me (1pt min.). @ -None done U/S interpreted by me (1pt. min.). @ -None done What testing was considered but not performed or refused? (CT, X-rays, U/S, labs)? Why? @ -None What meds were considered but not given or refused? Why? @ -None Did you discuss the management of the patient with other professionals (professionals i.e. , STUART, [employer], lab, RT, psych nurse, licensed clinical social worker, airplane mechanic, teacher, personnel officer, comp field case manager)? Give summary @ -Case was discussed with Dr. Prajapati who provided history of patient's original presentation and orders done. Was smoking cessation discussed for >3mins.? @ -No Was critical care preformed (if so, how long)? @ -No Were there social determinants of health that impacted care today? How? (Homelessness, low income, unemployed, alcoholism, drug addiction, transportation, low edu. Level, literacy, decrease access to med. care, senior living, rehab)? @ -No Was there de-escalation of care discussed even if they declined (Discuss DNR or withdrawal of care, Hospice)? DNR status @ -No What co-morbidities impacted this encounter? (DM, HTN, Smoking, COPD, CAD, Cancer, CVA, ARF, Chemo, Hep., AIDS, mental health diagnosis, sleep apnea, morbid obesity)? @ -Chronic left flank pain Was patient admitted / discharged? Hospital course, mention meds given and route, prescriptions, significant lab abnormalities, going to OR and other pertinent info. @ -Patient presents with chronic left flank pain. Urinalysis has hematuria and some white cells. Potential for urinary tract infection and patient will be covered with antibiotics and recommended close follow-up with her urologist as scheduled in 2 days. Patient is agreement with this. Patient is updated on results. Patient is updated on need to have her urologist go over urinalysis as well as urine culture Undiagnosed new problem with uncertain prognosis? @ -No Drug Therapy requiring intensive monitoring for toxicity (Heparin, Nitro, Insulin, Cardizem)? @ -No Were any procedures done? @ -No Diagnosis/symptom? @ -Flank pain Acute, or Chronic, or Acute on Chronic? @ -Acute on chronic Uncomplicated (without systemic symptoms) or Complicated (systemic symptoms)? @ -Complicated with potential urinary tract infection Side effects of treatment? @ -No Exacerbation, Progression, or Severe Exacerbation? @ -No Poses a threat to life or bodily function? How? (Chest pain, [place], [place], pneumonia, PE, COPD, DKA, ARF, appy, cholecystitis, CVA, Diverticulitis, Homicidal, Suicidal, threat to staff... and all critical care pts) @ -No - Lab Data Result diagrams: 08/25/24 06:21 08/25/24 06:21 Lab Results 08/25/24 08/25/24 08/25/24 Range/Units 06:05 06:21 06:21 WBC 7.1 (3.8-10.6) k/uL RBC 4.66 (3.80-5.40) m/uL Hgb 13.6 (11.4-16.0) gm/dL Hct 41.2 (34.0-46.0) % MCV 88.3 (80.0-100.0) fL MCH 29.2 (25.0-35.0) pg MCHC 33.0 (31.0-37.0) g/dL RDW 11.9 (11.5-15.5) % Plt Count 261 (150-450) k/uL MPV 7.4 Neutrophils % 43 % Lymphocytes % 47 % Monocytes % 5 % Eosinophils % 3 % Basophils % 1 % Neutrophils # 3.0 (1.3-7.7) k/uL Lymphocytes # 3.3 (1.0-4.8) k/uL Monocytes # 0.3 (0-1.0) k/uL Eosinophils # 0.2 (0-0.7) k/uL Basophils # 0.1 (0-0.2) k/uL Sodium 138 (137-145) mmol/L Potassium 3.9 (3.5-5.1) mmol/L Chloride 105 (98-107) mmol/L Carbon Dioxide 23 (22-30) mmol/L Anion Gap 10 mmol/L BUN 12 (7-17) mg/dL Creatinine 0.59 (0.52-1.04) mg/dL Est GFR (CKD-EPI)AfAm >90 (>60 ml/min/1.73 sqM) Est GFR (CKD-EPI)NonAf >90 (>60 ml/min/1.73 sqM) Glucose 68 L (74-99) mg/dL Calcium 9.3 (8.4-10.2) mg/dL Total Bilirubin 1.2 (0.2-1.3) mg/dL AST 19 (14-36) U/L ALT 12 (4-34) U/L Alkaline Phosphatase 56 (38-126) U/L Total Protein 6.8 (6.3-8.2) g/dL Albumin 4.3 (3.5-5.0) g/dL Lipase 94 (23-300) U/L Urine Color Light Red Urine Appearance Cloudy H (Clear) Urine pH 5.5 (5.0-8.0) Ur Specific [place] 1.018 (1.001-1.035) Urine Protein Trace H (Negative) Urine Glucose (UA) Negative (Negative) Urine Ketones Negative (Negative) Urine Blood Large H (Negative) Urine Nitrite Negative (Negative) Urine Bilirubin Negative (Negative) Urine Urobilinogen <2.0 (<2.0) mg/dL Ur Leukocyte Esterase Small H (Negative) Urine RBC >182 H (0-5) /hpf Urine WBC 82 H (0-5) /hpf Ur Squamous Epith Cells 3 (0-4) /hpf Urine Mucus Rare H (None) /hpf Disposition Clinical Impression: Left flank pain Disposition: HOME SELF-CARE Condition: Stable Instructions (If sedation given, give patient instructions): Flank Pain (ED) Additional Instructions: Please do follow-up with your urologist Sunday as planned. Please also follow-up with your primary care physician in the next day or 2 for recheck. Return for fever, uncontrolled vomiting, uncontrolled pain, worsening or changing symptoms or any other concerns. Prescription has been sent to pharmacy. Prescriptions: Cephalexin [Keflex] 500 mg PO QID #40 cap Is patient prescribed a controlled substance at d/c from ED?: No Referrals: Rajiv Sexton MD [Primary Care Provider] - 1-2 days Time of Disposition: 08:44
[2024-08-25 08:51] VITALS: BP 132/86; PULSE 76; TEMP 97.7
== END 2024-08-25 08:51 | disposition home or self-care (01) ==
LOC: EC 04:38
DX: R10.9 Unspecified abdominal pain (principal); F17.200 Nicotine dependence, unspecified, uncomplicated; Z88.0 Allergy status to penicillin; Z88.1 Allergy status to other antibiotic agents; Z88.2 Allergy status to sulfonamides; Z88.5 Allergy status to narcotic agent; Z91.018 Allergy to other foods; Z91.041 Radiographic dye allergy status; Z88.8 Allergy status to other drugs, medicaments and biological substances
CPT/HCPCS: 36415; 80053; 83690; 85025; 81001; 87086; 74018; 99284; 96374; 96375; 96361; J1200; J2405; J1171; J1885

== ENCOUNTER 2024-10-06 00:07 | Emergency (ER) | payer OTHER ==
--- NOTE | 2024-10-06 00:37 | ED ---
Abdominal Pain HPI - General Chief Complaint: Abdominal Pain Stated Complaint: abd pain Time Seen by Provider: 10/06/24 00:08 Source: patient, RN notes reviewed, old records reviewed Mode of arrival: ambulatory Limitations: no limitations - History of Present Illness Initial Comments: This is a 49 female to the ER. This patient presents today for evaluation of some abdominal pain renal colic history of renal colic multiple ER visits for similar symptoms today with nausea vomiting unable to take home medication MD Complaint: abdominal pain, flank pain -: days(s) Location: L flank Radiation: L flank Migration to: suprapubic Severity: severe Severity scale (1-10): 10 Quality: stabbing Consistency: constant Improves With: nothing Worsens With: nothing Associated Symptoms: nausea, vomiting Treatments Prior to Arrival: prescription analgesics - Related Data Home Medications Medication Instructions Recorded Confirmed oxyCODONE-APAP 10-325MG [Percocet 1 tab PO QID PRN 08/29/17 05/03/23 10-325 mg] PARoxetine HCL [Paxil] 40 mg PO DAILY 03/12/18 05/03/23 PARoxetine [Paxil] 20 mg PO DAILY 06/04/18 05/03/23 Loratadine 10 mg PO DAILY 04/21/20 05/03/23 Dextroamphetamine/Amphetamine 20 mg PO BID 12/07/21 05/03/23 [Dextroamp-Amphetamin 20 mg Tab] Multivitamins, Thera [Multivitamin 1 tab PO DAILY 12/07/21 05/03/23 (formulary)] SUMAtriptan succinate [Imitrex] 100 mg PO DAILY PRN 12/07/21 05/03/23 Atorvastatin [Lipitor] 40 mg PO DAILY 05/03/23 05/03/23 Cholecalciferol [Vitamin D3 (25 25 mcg PO DAILY 05/03/23 05/03/23 Mcg = 1000 Iu)] Cyanocobalamin (Vitamin B-12) 1,000 mcg PO DAILY 05/03/23 05/03/23 [Vitamin B-12] Tirzepatide [Mounjaro] 12.5 mg SQ WE 05/03/23 05/03/23 lisinopriL [Zestril] 10 mg PO DAILY 05/03/23 05/03/23 metFORMIN HCL 1,000 mg PO BID 05/03/23 05/03/23 Previous Rx's Medication Instructions Recorded Ondansetron Odt [Zofran Odt] 4 mg PO Q8HR PRN #20 tab 09/06/22 Cephalexin [Keflex] 500 mg PO Q6HR 7 Days #28 cap 09/27/23 Fluconazole 150 mg PO DIRECTED #2 tab 09/27/23 Tamsulosin [Flomax] 0.4 mg PO DAILY 14 Days #14 cap 11/26/23 Prochlorperazine [Compazine] 10 mg PO Q8H #14 tab 04/15/24 Ondansetron Odt [Zofran Odt] 4 mg PO Q8HR PRN #20 tab 05/26/24 Cephalexin [Keflex] 500 mg PO QID #40 cap 08/25/24 Allergies Allergy/AdvReac Type Severity Reaction Status Date / Time bupropion HCl Allergy Rash/Hives Verified 10/06/24 00:10 [From Wellbutrin] divalproex sodium Allergy Unknown Verified 10/06/24 00:10 [From Depakote] fentanyl Allergy Swelling Verified 10/06/24 00:10 Iodinated Contrast Media Allergy Anaphylaxis Verified 10/06/24 00:10 [Iodinated Contrast Media - IV Dye] orange juice [[place]] Allergy Rash/Hives Verified 10/06/24 00:10 Penicillins Allergy Rash/Hives/Gi Verified 10/06/24 00:10 Upset Sulfa (Sulfonamide Allergy Rash/Hives Verified 10/06/24 00:10 Antibiotics) sulfamethoxazole Allergy Rash/Hives Verified 10/06/24 00:10 [From Bactrim] trimethoprim [From Bactrim] Allergy Rash/Hives Verified 10/06/24 00:10 Review of Systems ROS Statement: Those systems with pertinent positive or pertinent negative responses have been documented in the HPI. ROS Other: All systems not noted in ROS Statement are negative. 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 History of Any Multi-Drug Resistant Organisms: ESBL Date of last positivie culture/infection: 05/14/17 MDRO Source:: ESBL URINE, Past Surgical History: Bladder Surgery, Section, Cholecystectomy, Hysterectomy, Orthopedic Surgery, Tubal Ligation Additional Past Surgical History / Comment(s): R ovarian cystectomy, la paroscopic surgery for L ovary that had attached to the bowel, D&C, numerous lithotripsies, nephroscopies, cystoscopies and stents to ureters-none in place at this time, L robotic pyeloplasty with post op infection around kidney which then required a picc line/later removed (pt states was not MRSA), L rotator cuff repair, L wrist tendon surgery, colonoscopy. Kidney stone removal. Past Anesthesia/Blood Transfusion Reactions: Family History of Problems w/ Anesthesia Additional Past Anesthesia/Blood Transfusion Reaction / Comment(s): dad-hard christoph e waking up due to enzyme problems in liver Past Psychological History: ADD/ADHD, Anxiety, Bipolar, Depression, PTSD Smoking Status: Current every day smoker Past Alcohol Use History: None Reported Past Drug Use History: None Reported - Past Family History Brother(s) Family Medical History: Cancer Additional Family Medical History / Comment(s): testicular Father Family Medical History: Coronary Artery Disease (CAD), CVA/TIA, Diabetes Mellitus, Renal Disease Additional Family Medical History / Comment(s): GLAUCOMA,NEUROPATHY HAD TRIPLE CABG, at 56yrs from renal disease. Mother Family Medical History: Hyperlipidemia Additional Family Medical History / Comment(s): DDD, HAD 3 vessel CABG AGE 54. General Exam Limitations: no limitations General appearance: alert, in no apparent distress Head exam: Present: atraumatic, normocephalic, normal inspection Eye exam: Present: normal appearance, PERRL, EOMI. Absent: scleral icterus, conjunctival injection, periorbital swelling ENT exam: Present: normal exam, mucous membranes moist Neck exam: Present: normal inspection. Absent: tenderness, meningismus, lymphadenopathy Respiratory exam: Present: normal lung sounds bilaterally. Absent: respiratory distress, wheezes, rales, rhonchi, stridor Cardiovascular Exam: Present: regular rate, normal rhythm, normal heart sounds. Absent: systolic murmur, diastolic murmur, rubs, gallop, clicks GI/Abdominal exam: Present: soft, normal bowel sounds. Absent: distended, tenderness, guarding, rebound, rigid Extremities exam: Present: normal inspection, full ROM, normal capillary refill. Absent: tenderness, pedal edema, joint swelling, calf tenderness Back exam: Present: normal inspection Neurological exam: Present: alert, oriented X3, CN II-XII intact Psychiatric exam: Present: normal affect, normal mood Skin exam: Present: warm, dry, intact, normal color. Absent: rash Course Vital Signs 10/06/24 00:10 Temperature 97.4 F L Pulse Rate 92 Respiratory 16 Rate Blood Pressure 132/85 O2 Sat by Pulse 100 Oximetry - Reevaluation(s) Reevaluation #1: 10/06/24 01:17 Medical records reviewed Hematuria Normal lab testing normal imaging testing ER visits reviewed multiple ER visits for similar complaint Reevaluation #2: 10/06/24 01:18 Patient symptoms improved here in the ER Reevaluation #3: 10/06/24 01:18 Patient informed of results questions answered Reevaluation #4: Was pt. sent in by a medical professional or institution (Dr. PA, WASH TUB MACHINE OPERATOR, urgent care, hospital, or snf...) When possible be specific @ -no Did you speak to anyone other than the patient for history (EMS, parent, family, police, friend...)? What history was obtained from this source @ -no Did you review nursing and triage notes (agree or disagree)? Why? @ -agree Are old charts reviewed (outside hosp., previous admission, EMS record, old EKG, old radiological studies, urgent care reports/EKG's, snf records)? Report findings @ -yes Differential Diagnosis (chest pain, altered mental status, abdominal pain women, abdominal pain men, vaginal bleeding, weakness, fever, dyspnea, syncope, headache, dizziness, GI bleed, back pain, seizure, CVA, palpatations, mental health, musculoskeletal)? @ -prior EKG interpreted by me (3pts min.). @ -yes X-rays interpreted by me (1pt min.). @ -yes negative for acute disease CT interpreted by me (1pt min.). @ -no U/S interpreted by me (1pt. min.). @ -no What testing was considered but not performed or refused? (CT, X-rays, U/S, labs)? Why? @ -none What meds were considered but not given or refused? Why? @ -none Did you discuss the management of the patient with other professionals (professionals i.e. , PA, WASH TUB MACHINE OPERATOR, lab, RT, psych nurse, social insurance administrator, hair designer, teacher, landing signal officer, outpatient case manager)? Give summary @ -no Was smoking cessation discussed for >3mins.? @ -no Was critical care preformed (if so, how long)? @ -no Were there social determinants of health that impacted care today? How? (Homelessness, low income, unemployed, alcoholism, drug addiction, transportation, low edu. Level, literacy, decrease access to med. care, longterm, rehab)? @ -none Was there de-escalation of care discussed even if they declined (Discuss DNR or withdrawal of care, Hospice)? DNR status @ -no What co-morbidities impacted this encounter? (DM, HTN, Smoking, COPD, CAD, Cancer, CVA, ARF, Chemo, Hep., AIDS, mental health diagnosis, sleep apnea, morbid obesity)? @ -none Was patient admitted / discharged? Hospital course, mention meds given and route, prescriptions, significant lab abnormalities, going to OR and other pertinent info. @ - Undiagnosed new problem with uncertain prognosis? @ -no Drug Therapy requiring intensive monitoring for toxicity (Heparin, Nitro, Insulin, Cardizem)? @ -no Were any procedures done? @ -no Diagnosis/symptom? @ - Acute, or Chronic, or Acute on Chronic? @ -Acute Uncomplicated (without systemic symptoms) or Complicated (systemic symptoms)? @ -Complicated Side effects of treatment? @ -no Exacerbation, Progression, or Severe Exacerbation? @ -exacerbation Poses a threat to life or bodily function? How? (Chest pain, [place], [place], pneumonia, PE, COPD, DKA, ARF, appy, cholecystitis, CVA, Diverticulitis, Homicidal, Suicidal, threat to staff... and all critical care pts) @ -yes Reevaluation #5: Differential Abdominal Pain Women: Appendicitis, Cholecystitis, diverticulosis, ischemic bowel, pancreatitis, hepatitis, UTI, gastroenteritis, AAA, incarcerated hernia, bowel obstruction, constipation, inflammatory bowel, hepatitis, peptic ulcer disease, splenic infarction, perforated viscus, vulvitis, ovarian torsion, PID, kidney stone, placenta abruption, this is not meant to be an all-inclusive list Medical Decision Making - Medical Decision Making 49 female to ER for evaluation this patient presents today for evaluation of severe abdominal pain with nausea vomiting pain is well-controlled here in the ER she can be discharged home - Lab Data Result diagrams: 10/06/24 00:46 Lab Results 10/06/24 Range/Units 00:46 WBC 7.40 (4.50-10.00) 10*3/uL RBC 4.52 (4.10-5.20) 10*6/uL Hgb 13.5 (12.0-15.0) g/dL Hct 38.1 (37.2-46.3) % MCV 84.3 (80.0-97.0) fL MCH 29.9 (27.0-32.0) pg MCHC 35.4 (32.0-37.0) g/dL Plt Count 245 (140-440) 10*3/uL MPV 9.3 L (9.5-12.2) fL Immature Gran % (Auto) 0.1 % Neutrophils % 39.1 % Lymphocytes % 51.8 % Monocytes % 5.8 % Eosinophils % 2.4 % Basophils % 0.8 % Immature Gran # 0.01 (0.00-0.04) 10*3/uL Neutrophils # 2.89 (1.80-7.70) 10*3/uL Lymphocytes # 3.83 (0.90-5.00) 10*3/uL Monocytes # 0.43 (0.20-1.00) 10*3/uL Eosinophils # 0.18 (0.04-0.35) 10*3/uL Basophils # 0.06 (0.00-0.10) 10*3/uL Disposition Clinical Impression: Abdominal pain, Flank pain, Intractable pain Disposition: HOME SELF-CARE Condition: Good Instructions (If sedation given, give patient instructions): Abdominal Pain (ED) Is patient prescribed a controlled substance at d/c from ED?: No Referrals: Rajiv Sexton MD [Primary Care Provider] - 1-2 days Time of Disposition: 02:00
[2024-10-06] MEDS: HYDROmorphone 1 MG/ML 1 ML SYRINGE IVP STA (00:50)
[2024-10-06] MEDS: diphenhydrAMINE 50 MG/ML 1 ML VIAL IVP STA (00:50)
[2024-10-06] MEDS: ONDANSETRON 4 MG/2 ML VIAL IVP STA (00:50)
[2024-10-06] MEDS: SODIUM CHLORIDE 0.9% 1,000 ML IV ONE (00:54)
[2024-10-06 01:08] LABS: Basophils # (A) 0.06 10*3/uL (0.00-0.10); Basophils % (A) 0.8 %; Eosinophils # (A) 0.18 10*3/uL (0.04-0.35); Eosinophils % (A) 2.4 %; HCT 38.1 % (37.2-46.3); HGB 13.5 g/dL (12.0-15.0); Lymphocytes # (A) 3.83 10*3/uL (0.90-5.00); Lymphocytes % (A) 51.8 %; MCH 29.9 pg (27.0-32.0); MCHC 35.4 g/dL (32.0-37.0); MCV 84.3 fL (80.0-97.0); Mean Platelet Volume 9.3 fL (9.5-12.2); Monocytes # (A) 0.43 10*3/uL (0.20-1.00); Monocytes % (A) 5.8 %; Neutrophils # (A) 2.89 10*3/uL (1.80-7.70); Neutrophils % (A) 39.1 %; Platelet Count 245 10*3/uL (140-440); RBC 4.52 10*6/uL (4.10-5.20)
[2024-10-06 01:31] LABS: Appearance,Urine Cloudy (Clear); Bacteria,Urine Rare /hpf; Bilirubin,Urine Negative (Negative); Blood,Urine Large (Negative); Color,Urine Light Red; Glucose,Urine (UA) Negative (Negative); Ketones,Urine Negative (Negative); Leukocyte Esterase,Urine Moderate (Negative); Mucus,Urine Few /hpf; Nitrite,Urine Negative (Negative); Protein,Urine 1+ (Negative); RBC,Urine >182 /hpf (0-5); Specific Gravity,Urine 1.019 (1.001-1.035); Squamous Epithelial Cell,Urine 2 /hpf (0-4); Urobilinogen,Urine <2.0 mg/dL (<2.0); WBC,Urine 90 /hpf (0-5)
[2024-10-06 01:42] LABS: ALT 12 U/L (4-34); AST 19 U/L (14-36); African American GFR (CKD) >90 (>60 ml/min/1.73 sqM); Albumin 4.1 g/dL (3.5-5.0); Alkaline Phosphatase 63 U/L (38-126); Anion Gap 9 mmol/L; Blood Urea Nitrogen 14 mg/dL (7-17); Calcium 9.4 mg/dL (8.4-10.2); Carbon Dioxide 23 mmol/L (22-30); Chloride 104 mmol/L (98-107); Glucose 110 mg/dL (74-99); Lipase 79 U/L (23-300); Non-African American GFR(CKD) >90 (>60 ml/min/1.73 sqM); Potassium 3.6 mmol/L (3.5-5.1); Sodium 136 mmol/L (137-145); Total Protein 6.6 g/dL (6.3-8.2)
[2024-10-06 02:22] VITALS: BP 116/84; PULSE 77; RESP 17; TEMP 98.4
== END 2024-10-06 02:24 | disposition home or self-care (01) ==
LOC: EC 00:07
DX: R10.9 Unspecified abdominal pain (principal); F17.200 Nicotine dependence, unspecified, uncomplicated; Z88.0 Allergy status to penicillin; Z88.1 Allergy status to other antibiotic agents; Z91.041 Radiographic dye allergy status; Z91.018 Allergy to other foods; Z88.8 Allergy status to other drugs, medicaments and biological substances
CPT/HCPCS: 99284; 96374; 96375 ×2; 96361; 36415; 80053; 83690; 85025; 81001; J1200; J2405; J1171

== ENCOUNTER 2024-10-10 21:16 | Emergency (ER) | payer OTHER ==
[2024-10-10 21:26] VITALS: TEMP 97.5
[2024-10-10] MEDS: SODIUM CHLORIDE 0.9% 1,000 ML IV STA (22:27)
[2024-10-10] MEDS: ONDANSETRON 4 MG/2 ML VIAL IVP STA (22:29)
[2024-10-10] MEDS: MORPHINE SULFATE 4 MG/ML SYRINGE IVP STA (22:31)
[2024-10-10] MEDS: KETOROLAC 15 MG/ML 1 ML VIAL IVP STA (22:31)
--- NOTE | 2024-10-10 22:33 | ED ---
Back Pain HPI - General Chief Complaint: Back Pain/Injury Stated Complaint: Back Pain,Blood in Urine Time Seen by Provider: 10/10/24 22:31 Source: patient, RN notes reviewed Limitations: no limitations - History of Present Illness Initial Comments: 49-year-old female presenting with left flank pain x 2 days with hematuria. Patient has history of kidney stones and states this feels similar to previous kidney stones. Also endorses several episodes of nausea vomiting today. Denies abdominal pain. Denies dysuria, urinary urgency or frequency. History of type 2 diabetes, hyperlipidemia, and hypertension. No other abdominal surgeries include hysterectomy and cholecystectomy. - Related Data Home Medications Medication Instructions Recorded Confirmed oxyCODONE-APAP 10-325MG [Percocet 1 tab PO QID PRN 08/29/17 05/03/23 10-325 mg] PARoxetine HCL [Paxil] 40 mg PO DAILY 03/12/18 05/03/23 PARoxetine [Paxil] 20 mg PO DAILY 06/04/18 05/03/23 Loratadine 10 mg PO DAILY 04/21/20 05/03/23 Dextroamphetamine/Amphetamine 20 mg PO BID 12/07/21 05/03/23 [Dextroamp-Amphetamin 20 mg Tab] Multivitamins, Thera [Multivitamin 1 tab PO DAILY 12/07/21 05/03/23 (formulary)] SUMAtriptan succinate [Imitrex] 100 mg PO DAILY PRN 12/07/21 05/03/23 Atorvastatin [Lipitor] 40 mg PO DAILY 05/03/23 05/03/23 Cholecalciferol [Vitamin D3 (25 25 mcg PO DAILY 05/03/23 05/03/23 Mcg = 1000 Iu)] Cyanocobalamin (Vitamin B-12) 1,000 mcg PO DAILY 05/03/23 05/03/23 [Vitamin B-12] Tirzepatide [Mounjaro] 12.5 mg SQ WE 05/03/23 05/03/23 lisinopriL [Zestril] 10 mg PO DAILY 05/03/23 05/03/23 metFORMIN HCL 1,000 mg PO BID 05/03/23 05/03/23 Previous Rx's Medication Instructions Recorded Ondansetron Odt [Zofran Odt] 4 mg PO Q8HR PRN #20 tab 09/06/22 Cephalexin [Keflex] 500 mg PO Q6HR 7 Days #28 cap 09/27/23 Fluconazole 150 mg PO DIRECTED #2 tab 09/27/23 Tamsulosin [Flomax] 0.4 mg PO DAILY 14 Days #14 cap 11/26/23 Prochlorperazine [Compazine] 10 mg PO Q8H #14 tab 04/15/24 Ondansetron Odt [Zofran Odt] 4 mg PO Q8HR PRN #20 tab 05/26/24 Cephalexin [Keflex] 500 mg PO QID #40 cap 08/25/24 Ketorolac [Toradol] 10 mg PO Q8HR #15 tab 10/11/24 Tamsulosin [Flomax] 0.4 mg PO DAILY #7 cap 10/11/24 Allergies Allergy/AdvReac Type Severity Reaction Status Date / Time bupropion HCl Allergy Rash/Hives Verified 10/10/24 21:22 [From Wellbutrin] divalproex sodium Allergy Unknown Verified 10/10/24 21:22 [From Depakote] fentanyl Allergy Swelling Verified 10/10/24 21:22 Iodinated Contrast Media Allergy Anaphylaxis Verified 10/10/24 21:22 [Iodinated Contrast Media - IV Dye] orange juice [[place]] Allergy Rash/Hives Verified 10/10/24 21:22 Penicillins Allergy Rash/Hives/Gi Verified 10/10/24 21:22 Upset Sulfa (Sulfonamide Allergy Rash/Hives Verified 10/10/24 21:22 Antibiotics) sulfamethoxazole Allergy Rash/Hives Verified 10/10/24 21:22 [From Bactrim] trimethoprim [From Bactrim] Allergy Rash/Hives Verified 10/10/24 21:22 Review of Systems ROS Statement: Those systems with pertinent positive or pertinent negative responses have been documented in the HPI. ROS Other: All systems not noted in ROS Statement are negative. 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 History of Any Multi-Drug Resistant Organisms: ESBL Date of last positivie culture/infection: 05/14/17 MDRO Source:: ESBL URINE, Past Surgical History: Bladder Surgery, Section, Cholecystectomy, Hysterectomy, Orthopedic Surgery, Tubal Ligation Additional Past Surgical History / Comment(s): R ovarian cystectomy, laparoscopi c surgery for L ovary that had attached to the bowel, D&C, numerous lithotripsies, nephroscopies, cystoscopies and stents to ureters-none in place at this time, L robotic pyeloplasty with post op infection around kidney which then required a picc line/later removed (pt states was not MRSA), L rotator cuff repair, L wrist tendon surgery, colonoscopy. Kidney stone removal. Past Anesthesia/Blood Transfusion Reactions: Family History of Problems w/ Anesthesia Additional Past Anesthesia/Blood Transfusion Reaction / Comment(s): dad-hard time waking up due to enzyme problems in liver Past Psychological History: ADD/ADHD, Anxiety, Bipolar, Depression, PTSD Smoking Status: Current every day smoker Past Alcohol Use History: None Reported Past Drug Use History: None Reported - Past Family History Brother(s) Family Medical History: Cancer Additional Family Medical History / Comment(s): testicular Father Family Medical History: Coronary Artery Disease (CAD), CVA/TIA, Diabetes Mellitus, Renal Disease Additional Family Medical History / Comment(s): GLAUCOMA,NEUROPATHY HAD TRIPLE CABG, at 56yrs from renal disease. Mother Family Medical History: Hyperlipidemia Additional Family Medical History / Comment(s): DDD, HAD 3 vessel CABG AGE 54. General Exam Limitations: no limitations General appearance: alert, in no apparent distress Head exam: Present: atraumatic, normocephalic, normal inspection Eye exam: Present: normal appearance, PERRL, EOMI. Absent: scleral icterus, conjunctival injection, periorbital swelling GI/Abdominal exam: Present: soft, normal bowel sounds. Absent: distended, tenderness, guarding, rebound, rigid Back exam: Present: normal inspection, full ROM, CVA tenderness (L). Absent: CVA tenderness (R) Neurological exam: Present: alert, oriented X3 Psychiatric exam: Present: normal affect, normal mood Skin exam: Present: warm, dry, intact, normal color. Absent: rash Course Vital Signs 04/18/25 21:20 Temperature 97.5 F L Pulse Rate 99 Respiratory 18 Rate Blood Pressure 118/78 O2 Sat by Pulse 100 Oximetry Medical Decision Making - Medical Decision Making Was pt. sent in by a medical professional or institution (STUART Yeager, DIRECTOR OF PEDIATRIC REHABILITATION, urgent care, hospital, or senior care...) When possible be specific @ -No Did you speak to anyone other than the patient for history (EMS, parent, family, police, friend...)? What history was obtained from this source @ -No Did you review nursing and triage notes (agree or disagree)? Why? @ -I reviewed and agree with nursing and triage notes Were old charts reviewed (outside hosp., previous admission, EMS record, old EK G, old radiological studies, urgent care reports/EKG's, senior care records)? Report findings @ -No old charts were reviewed Differential Diagnosis (chest pain, altered mental status, abdominal pain women, abdominal pain men, vaginal bleeding, weakness, fever, dyspnea, syncope, headache, dizziness, GI bleed, back pain, seizure, CVA, palpatations, mental health, musculoskeletal)? @ -Differential Abdominal Pain Women: Appendicitis, Cholecystitis, diverticulosis, ischemic bowel, pancreatitis, he patitis, UTI, gastroenteritis, AAA, incarcerated hernia, bowel obstruction, constipation, inflammatory bowel, hepatitis, peptic ulcer disease, splenic infarction, perforated viscus, vulvitis, ovarian torsion, PID, kidney stone, placenta abruption, this is not meant to be an all-inclusive list EKG interpreted by me (3pts min.). @ -None X-rays interpreted by me (1pt min.). @ -None done CT interpreted by me (1pt min.). @ -CT abdomen pelvis reveals mild left hydroureteronephrosis with obstructing 6 mm calculus at the ureteropelvic junction U/S interpreted by me (1pt. min.). @ -None done What testing was considered but not performed or refused? (CT, X-rays, U/S, labs)? Why? @ -None What meds were considered but not given or refused? Why? @ -None Did you discuss the management of the patient with other professionals (professionals i.e. STUART Yeager, DIRECTOR OF PEDIATRIC REHABILITATION, lab, RT, psych nurse, social media marketing analyst, cfd engineer, teacher, home lending officer, case planner)? Give summary @ -I spoke with Dr. Gayle who determines patient can be safely discharged on antibiotics with close outpatient follow-up Was smoking cessation discussed for >3mins.? @ -No Was critical care preformed (if so, how long)? @ -No Were there social determinants of health that impacted care today? How? (Homelessness, low income, unemployed, alcoholism, drug addiction, transportation, low edu. Level, literacy, decrease access to med. care, snf, rehab)? @ -No Was there de-escalation of care discussed even if they declined (Discuss DNR or withdrawal of care, Hospice)? DNR status @ -No What co-morbidities impacted this encounter? (DM, HTN, Smoking, COPD, CAD, Cancer, CVA, ARF, Chemo, Hep., AIDS, mental health diagnosis, sleep apnea, morbid obesity)? @ -None Was patient admitted / discharged? Hospital course, mention meds given and route, prescriptions, significant lab abnormalities, going to OR and other pertinent info. @ - discharged. 49-year-old female presenting for left flank pain with associated hematuria. Patient has history of kidney stones and states this feels similar. Patient is afebrile, nontachycardic. Patient does have left CVA tenderness. Abdomen is soft and nonsurgical. Provided with IV fluids, Toradol, Zofran, and morphine. Lab work remarkable for normal white blood cell count of 8.6, BUN 23, creatinine 0.71, lactic 1. Blood glucose 71, patient provided with juice. Urinalysis remarkable for large amount of blood and white blood cells consistent with urinary tract infection. CT abdomen pelvis reveals mild left hydroureteronephrosis with obstructing 6 mm calculus at the ureteropelvic junction. Upon reevaluation, patient reports significant improvement of symptoms and is tolerating orals well. Due to 6 mm calculus with urinary tract infection, Dr. Gayle was consulted who determines patient can be safely discharged on antibiotics with close outpatient follow-up. Patient was provided with dose of IV Rocephin. Provided outpatient prescription for Flomax, Toradol, and Keflex. Appropriate return precautions and follow-up care discussed. Case was discussed with my ED attending Dr. Prajapati. Undiagnosed new problem with uncertain prognosis? @ -No Drug Therapy requiring intensive monitoring for toxicity (Heparin, Nitro, Insulin, Cardizem)? @ -No Were any procedures done? @ -No Diagnosis/symptom? @ -Left nephrolithiasis, urinary tract infection Acute, or Chronic, or Acute on Chronic? @ -Acute Uncomplicated (without systemic symptoms) or Complicated (systemic symptoms)? @ -Uncomplicated Side effects of treatment? @ -No Exacerbation, Progression, or Severe Exacerbation? @ -No Poses a threat to life or bodily function? How? (Chest pain, USA, IA, pneumonia, PE, COPD, DKA, ARF, appy, cholecystitis, CVA, Diverticulitis, Homicidal, Suicidal, threat to staff... and all critical care pts) @ -Not at this time - Lab Data Result diagrams: 10/10/24 22:30 10/10/24 22:30 Lab Results 10/10/24 10/10/24 10/10/24 Range/Units 22:30 22:30 22:30 WBC 8.65 (4.50-10.00) 10*3/uL RBC 4.79 (4.10-5.20) 10*6/uL Hgb 14.5 (12.0-15.0) g/dL Hct 40.0 (37.2-46.3) % MCV 83.5 (80.0-97.0) fL MCH 30.3 (27.0-32.0) pg MCHC 36.3 (32.0-37.0) g/dL Plt Count 285 (140-440) 10*3/uL MPV 9.3 L (9.5-12.2) fL Immature Gran % (Auto) 0.2 % Neutrophils % 48.1 % Lymphocytes % 42.8 % Monocytes % 6.7 % Eosinophils % 1.4 % Basophils % 0.8 % Immature Gran # 0.02 (0.00-0.04) 10*3/uL Neutrophils # 4.16 (1.80-7.70) 10*3/uL Lymphocytes # 3.70 (0.90-5.00) 10*3/uL Monocytes # 0.58 (0.20-1.00) 10*3/uL Eosinophils # 0.12 (0.04-0.35) 10*3/uL Basophils # 0.07 (0.00-0.10) 10*3/uL Sodium (137-145) mmol/L Potassium (3.5-5.1) mmol/L Chloride (98-107) mmol/L Carbon Dioxide (22-30) mmol/L Anion Gap mmol/L BUN (7-17) mg/dL Creatinine (0.52-1.04) mg/dL Est GFR (CKD-EPI)AfAm (>60 ml/min/1.73 sqM) Est GFR (CKD-EPI)NonAf (>60 ml/min/1.73 sqM) Glucose (74-99) mg/dL Plasma Lactic Acid Brant (0.7-2.0) mmol/L Calcium (8.4-10.2) mg/dL Total Bilirubin (0.2-1.3) mg/dL AST (14-36) U/L ALT (4-34) U/L Alkaline Phosphatase (38-126) U/L Total Protein (6.3-8.2) g/dL Albumin (3.5-5.0) g/dL Lipase (23-300) U/L Urine Color Red Urine Appearance Turbid H (Clear) Urine pH 6.5 (5.0-8.0) Ur Specific [place] 1.029 (1.001-1.035) Urine Protein 1+ H (Negative) Urine Glucose (UA) Negative (Negative) Urine Ketones Trace H (Negative) Urine Blood Large H (Negative) Urine Nitrite Negative (Negative) Urine Bilirubin Negative (Negative) Urine Urobilinogen <2.0 (<2.0) mg/dL Ur Leukocyte Esterase Small H (Negative) Urine RBC >182 H (0-5) /hpf Urine WBC 120 H (0-5) /hpf Ur Squamous Epith Cells 14 H (0-4) /hpf Urine Bacteria Moderate H (None) /hpf Urine Mucus Moderate H (None) /hpf Urine HCG, Qual Not Detected (Not Detectd) 10/10/24 10/10/24 Range/Units 22:30 22:30 WBC (4.50-10.00) 10*3/uL RBC (4.10-5.20) 10*6/uL Hgb (12.0-15.0) g/dL Hct (37.2-46.3) % MCV (80.0-97.0) fL MCH (27.0-32.0) pg MCHC (32.0-37.0) g/dL Plt Count (140-440) 10*3/uL MPV (9.5-12.2) fL Immature Gran % (Auto) % Neutrophils % % Lymphocytes % % Monocytes % % Eosinophils % % Basophils % % Immature Gran # (0.00-0.04) 10*3/uL Neutrophils # (1.80-7.70) 10*3/uL Lymphocytes # (0.90-5.00) 10*3/uL Monocytes # (0.20-1.00) 10*3/uL Eosinophils # (0.04-0.35) 10*3/uL Basophils # (0.00-0.10) 10*3/uL Sodium 135 L (137-145) mmol/L Potassium 3.7 (3.5-5.1) mmol/L Chloride 101 (98-107) mmol/L Carbon Dioxide 25 (22-30) mmol/L Anion Gap 9 mmol/L BUN 23 H (7-17) mg/dL Creatinine 0.71 (0.52-1.04) mg/dL Est GFR (CKD-EPI)AfAm >90 (>60 ml/min/1.73 sqM) Est GFR (CKD-EPI)NonAf >90 (>60 ml/min/1.73 sqM) Glucose 71 L (74-99) mg/dL Plasma Lactic Acid Brant 1.0 (0.7-2.0) mmol/L Calcium 10.2 (8.4-10.2) mg/dL Total Bilirubin 1.8 H (0.2-1.3) mg/dL AST 21 (14-36) U/L ALT 14 (4-34) U/L Alkaline Phosphatase 72 (38-126) U/L Total Protein 7.2 (6.3-8.2) g/dL Albumin 4.4 (3.5-5.0) g/dL Lipase 51 (23-300) U/L Urine Color Urine Appearance (Clear) Urine pH (5.0-8.0) Ur Specific [place] (1.001-1.035) Urine Protein (Negative) Urine Glucose (UA) (Negative) Urine Ketones (Negative) Urine Blood (Negative) Urine Nitrite (Negative) Urine Bilirubin (Negative) Urine Urobilinogen (<2.0) mg/dL Ur Leukocyte Esterase (Negative) Urine RBC (0-5) /hpf Urine WBC (0-5) /hpf Ur Squamous Epith Cells (0-4) /hpf Urine Bacteria (None) /hpf Urine Mucus (None) /hpf Urine HCG, Qual (Not Detectd) Disposition Clinical Impression: Left nephrolithiasis Disposition: HOME SELF-CARE Condition: Stable Instructions (If sedation given, give patient instructions): Kidney Stones (ED) Additional Instructions: Take Keflex as prescribed for urinary tract infection, Flomax, and Toradol as needed for pain. Follow-up with Dr. Gayle next week. Please return to the Emergency Department if symptoms worsen or any other concerns. Prescriptions: Tamsulosin [Flomax] 0.4 mg PO DAILY #7 cap Ketorolac [Toradol] 10 mg PO Q8HR #15 tab Is patient prescribed a controlled substance at d/c from ED?: No Referrals: Rajiv Sexton MD [Primary Care Provider] - 1-2 days Milton Gayle MD [STAFF PHYSICIAN] - 1-2 days Time of Disposition: 00:14
[2024-10-10 22:42] LABS: Basophils # (A) 0.07 10*3/uL (0.00-0.10); Basophils % (A) 0.8 %; Eosinophils # (A) 0.12 10*3/uL (0.04-0.35); Eosinophils % (A) 1.4 %; HGB 14.5 g/dL (12.0-15.0); Lymphocytes % (A) 42.8 %; MCH 30.3 pg (27.0-32.0); MCHC 36.3 g/dL (32.0-37.0); MCV 83.5 fL (80.0-97.0); Mean Platelet Volume 9.3 fL (9.5-12.2); Monocytes # (A) 0.58 10*3/uL (0.20-1.00); Monocytes % (A) 6.7 %; Neutrophils # (A) 4.16 10*3/uL (1.80-7.70); Neutrophils % (A) 48.1 %; Platelet Count 285 10*3/uL (140-440); RBC 4.79 10*6/uL (4.10-5.20); RDW 11.9 % (11.5-14.5); WBC 8.65 10*3/uL (4.50-10.00)
[2024-10-10 23:04] LABS: ALT 14 U/L (4-34); AST 21 U/L (14-36); African American GFR (CKD) >90 (>60 ml/min/1.73 sqM); Albumin 4.4 g/dL (3.5-5.0); Alkaline Phosphatase 72 U/L (38-126); Anion Gap 9 mmol/L; Blood Urea Nitrogen 23 mg/dL (7-17); Calcium 10.2 mg/dL (8.4-10.2); Carbon Dioxide 25 mmol/L (22-30); Chloride 101 mmol/L (98-107); Glucose 71 mg/dL (74-99); Lipase 51 U/L (23-300); Non-African American GFR(CKD) >90 (>60 ml/min/1.73 sqM); Potassium 3.7 mmol/L (3.5-5.1); Sodium 135 mmol/L (137-145); Total Bilirubin 1.8 mg/dL (0.2-1.3); Total Protein 7.2 g/dL (6.3-8.2)
[2024-10-10 23:07] LABS: Appearance,Urine Turbid (Clear); Bacteria,Urine Moderate /hpf; Bilirubin,Urine Negative (Negative); Blood,Urine Large (Negative); Color,Urine Red; Glucose,Urine (UA) Negative (Negative); Ketones,Urine Trace (Negative); Leukocyte Esterase,Urine Small (Negative); Mucus,Urine Moderate /hpf; Nitrite,Urine Negative (Negative); PH, Urine 6.5 (5.0-8.0); Protein,Urine 1+ (Negative); RBC,Urine >182 /hpf (0-5); Specific Gravity,Urine 1.029 (1.001-1.035); Squamous Epithelial Cell,Urine 14 /hpf (0-4); Urobilinogen,Urine <2.0 mg/dL (<2.0); WBC,Urine 120 /hpf (0-5)
--- NOTE | 2024-10-10 23:34 | CT ---
EXAMINATION TYPE: CT abdomen pelvis wo con CT DLP: 297.3 mGycm, Automated exposure control for dose reduction was used. DATE OF EXAM: 10/10/2024 10:52 PM COMPARISON: [facility] radiograph 08/25/2024, renal ultrasound 11/26/2023, CT abdomen and pelvis 09/06/2023 CLINICAL INDICATION:Female, 49 years old with history of left flank pain; Patient reports left sided flank/back pain. Denies abd pain. Patient reports blood in urine. Hx of kidney stones and feels she h as another one TECHNIQUE: Standard CT of the abdomen and pelvis without IV or oral contrast. Lack of IV or oral co ntrast limits evaluation of solid and hollow organ viscera. Coronal and sagittal reformats were perfo rmed. FINDINGS: LOWER CHEST: Unremarkable noncontrast appearance. ABDOMEN LIVER: Unremarkable noncontrast appearance. GALLBLADDER AND BILE DUCTS: The gallbladder is surgically absent. Expected common bile duct dilatatio n measuring up to 9 mm due to cholecystectomy physiology. PANCREAS: Unremarkable noncontrast appearance. SPLEEN: Unremarkable noncontrast appearance. ADRENAL GLANDS: Unremarkable noncontrast appearance.. KIDNEYS AND URETERS: No right hydronephrosis. There are at least 3 nonobstructive right renal calculi with largest measuring up to 3 mm. No right hydroureter. Mild left hydroureteronephrosis with a calc ulus within the ureteropelvic junction measuring up to 6 mm. There are couple of punctate additional nonobstructing left renal calculi. No perinephric fat stranding. PELVIS BLADDER: Underdistended, limiting evaluation. REPRODUCTIVE: The uterus is surgically absent. ABDOMEN & PELVIS STOMACH AND BOWEL: Stomach and duodenum are unremarkable. The appendix is within normal limits. Few s cattered sigmoid diverticula without evidence for acute diverticulitis. No focal bowel wall thickenin g or surrounding inflammatory changes. No evidence of bowel obstruction. PERITONEUM: No evidence of pneumoperitoneum or free fluid. VASCULATURE: No evidence of aortic aneurysm. MUSCULOSKELETAL: No acute osseous abnormalities. Advanced degenerative disc disease at L4-L5 with dis c space narrowing, subchondral cystic change, vacuum disc disease, and anterior osteophytosis. LYMPH NODES: No gross evidence for lymphadenopathy. SOFT TISSUE/ABDOMINAL WALL: Unremarkable IMPRESSION: 1. Mild left hydroureteronephrosis with an obstructing 6 mm calculus at the ureteropelvic junction. 2. Bilateral nonobstructive renal calculi. 3. Sigmoid diverticulosis without evidence for acute diverticulitis. [facility], , 10/10/2024 11:31 PM
[2024-10-11] MEDS: KETOROLAC 15 MG/ML 1 ML VIAL IVP STA (00:23)
[2024-10-11] MEDS: MORPHINE SULFATE 2 MG/ML SYRINGE IVP ONE (00:23)
[2024-10-11] MEDS: cefTRIAXone IN SWFI 1,000 MG/10 ML SYRINGE IVP STA (00:29)
[2024-10-11 00:36] VITALS: BP 127/85; PULSE 86; RESP 16
== END 2024-10-11 00:36 | disposition home or self-care (01) ==
LOC: EC 21:16
DX: N13.2 Hydronephrosis with renal and ureteral calculous obstruction (principal); N39.0 Urinary tract infection, site not specified; F17.200 Nicotine dependence, unspecified, uncomplicated; Z88.0 Allergy status to penicillin; Z88.1 Allergy status to other antibiotic agents; Z88.2 Allergy status to sulfonamides; Z88.8 Allergy status to other drugs, medicaments and biological substances; Z91.041 Radiographic dye allergy status; Z91.02 Food additives allergy status
CPT/HCPCS: 36415; 80053; 83605; 83690; 85025; 81001; 81025; 87086; 74176; 99284; 96374; 96375 ×3; 96376 ×2; J2270 ×2; J2405; J0696; J1885 ×2

== ENCOUNTER 2024-10-16 22:19 | Emergency (ER) | payer OTHER ==
--- NOTE | 2024-10-16 22:48 | ED ---
Female Urogenital HPI - General Chief complaint: Urogenital Stated complaint: left flank pain Time Seen by Provider: 10/16/24 22:47 Source: patient, RN notes reviewed, old records reviewed Mode of arrival: ambulatory Limitations: no limitations - History of Present Illness Initial comments: 49-year-old male presented the ER for evaluation of nausea, vomiting, diarrhea and left flank pain. Patient is well-known to this emergency department.Patient reports a week and a half she has been having increase of left flank pain. She has a known 6 mm kidney stone on that side. She has been attempting to contact her urologist without success. Patient also reports hematuria and dysuria. Patient states that hematuria is chronic given kidney stones but has noticed an increased amount of the past week and a half. No blood thinners. Patient also states last couple days she has felt extremely nauseous unable to keep anything down including liquids. She also admits to diarrhea. Patient does take Mounjaro for diabetes control and weight loss. She states her physician is attempting to lower her dose as she has "lost too much weight". She is reporting insurance issues lowering the dose of the Mounjaro. She has taken prescribed Percocet, Toradol and Flomax without relief of symptoms. She denies any fevers, chills, chest pain, shortness of breath, abdominal pain, hematochezia, melena, hematic emesis or coffee-ground emesis. - Related Data Home Medications Medication Instructions Recorded Confirmed oxyCODONE-APAP 10-325MG [Percocet 1 tab PO QID PRN 08/29/17 05/03/23 10-325 mg] PARoxetine HCL [Paxil] 40 mg PO DAILY 03/12/18 05/03/23 PARoxetine [Paxil] 20 mg PO DAILY 06/04/18 05/03/23 Loratadine 10 mg PO DAILY 04/21/20 05/03/23 Dextroamphetamine/Amphetamine 20 mg PO BID 12/07/21 05/03/23 [Dextroamp-Amphetamin 20 mg Tab] Multivitamins, Thera [Multivitamin 1 tab PO DAILY 12/07/21 05/03/23 (formulary)] SUMAtriptan succinate [Imitrex] 100 mg PO DAILY PRN 12/07/21 05/03/23 Atorvastatin [Lipitor] 40 mg PO DAILY 05/03/23 05/03/23 Cholecalciferol [Vitamin D3 (25 25 mcg PO DAILY 05/03/23 05/03/23 Mcg = 1000 Iu)] Cyanocobalamin (Vitamin B-12) 1,000 mcg PO DAILY 05/03/23 05/03/23 [Vitamin B-12] Tirzepatide [Mounjaro] 12.5 mg SQ WE 05/03/23 05/03/23 lisinopriL [Zestril] 10 mg PO DAILY 05/03/23 05/03/23 metFORMIN HCL 1,000 mg PO BID 05/03/23 05/03/23 Previous Rx's Medication Instructions Recorded Ondansetron Odt [Zofran Odt] 4 mg PO Q8HR PRN #20 tab 09/06/22 Cephalexin [Keflex] 500 mg PO Q6HR 7 Days #28 cap 09/27/23 Fluconazole 150 mg PO DIRECTED #2 tab 09/27/23 Tamsulosin [Flomax] 0.4 mg PO DAILY 14 Days #14 cap 11/26/23 Prochlorperazine [Compazine] 10 mg PO Q8H #14 tab 04/15/24 Ondansetron Odt [Zofran Odt] 4 mg PO Q8HR PRN #20 tab 05/26/24 Cephalexin [Keflex] 500 mg PO QID #40 cap 08/25/24 Ketorolac [Toradol] 10 mg PO Q8HR #15 tab 10/11/24 Tamsulosin [Flomax] 0.4 mg PO DAILY #7 cap 10/11/24 Allergies Allergy/AdvReac Type Severity Reaction Status Date / Time bupropion HCl Allergy Rash/Hives Verified 10/10/24 21:22 [From Wellbutrin] divalproex sodium Allergy Unknown Verified 10/10/24 21:22 [From Depakote] fentanyl Allergy Swelling Verified 10/10/24 21:22 Iodinated Contrast Media Allergy Anaphylaxis Verified 10/10/24 21:22 [Iodinated Contrast Media - IV Dye] Penicillins Allergy Rash/Hives/Gi Verified 10/10/24 21:22 Upset Sulfa (Sulfonamide Allergy Rash/Hives Verified 10/10/24 21:22 Antibiotics) sulfamethoxazole Allergy Rash/Hives Verified 10/10/24 21:22 [From Bactrim] trimethoprim [From Bactrim] Allergy Rash/Hives Verified 10/10/24 21:22 Review of Systems ROS Statement: Those systems with pertinent positive or pertinent negative responses have been documented in the HPI. ROS Other: All systems not noted in ROS Statement are negative. 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 History of Any Multi-Drug Resistant Organisms: ESBL Date of last positivie culture/infection: 05/14/17 MDRO Source:: ESBL URINE, Past Surgical History: Bladder Surgery, Section, Cholecystectomy, Hysterectomy, Orthopedic Surgery, Tubal Ligation Additional Past Surgical History / Comment(s): R ovarian cystectomy, laparoscopic surgery for L ovary that had attached to the bowel, D&C, numerous lithotripsies, nephroscopies, cystoscopies and stents to ureters-none in place at this time, L robotic pyeloplasty with post op infection around kidney which then required a picc line/later removed (pt states was not MRSA), L rotator cuff repair, L wrist tendon surgery, colonoscopy. Kidney stone removal. Past Anesthesia/Blood Transfusion Reactions: Family History of Problems w/ Anesthesia Additional Past Anesthesia/Blood Transfusion Reaction / Comment(s): dad-hard time waking up due to enzyme problems in liver Past Psychological History: ADD/ADHD, Anxiety, Bipolar, Depression, PTSD Smoking Status: Current every day smoker, Vaper Past Alcohol Use History: None Reported Past Drug Use History: None Reported - Past Family History Brother(s) Family Medical History: Cancer Additional Family Medical History / Comment(s): testicular Father Family Medical History: Coronary Artery Disease (CAD), CVA/TIA, Diabetes Mellitus, Renal Disease Additional Family Medical History / Comment(s): GLAUCOMA,NEUROPATHY HAD TRIPLE CABG, at 56yrs from renal disease. Mother Family Medical History: Hyperlipidemia Additional Family Medical History / Comment(s): DDD, HAD 3 vessel CABG AGE 54. General Exam Limitations: no limitations General appearance: alert, in no apparent distress Respiratory exam: Present: normal lung sounds bilaterally. Absent: respiratory distress, wheezes, rales, rhonchi, stridor Cardiovascular Exam: Present: regular rate, normal rhythm, normal heart sounds. Absent: systolic murmur, diastolic murmur, rubs, gallop, clicks GI/Abdominal exam: Present: soft, normal bowel sounds. Absent: distended, tenderness, guarding, rebound, rigid Back exam: Present: normal inspection, full ROM, CVA tenderness (L) Neurological exam: Present: alert, oriented X3, CN II-XII intact Skin exam: Present: warm, dry, intact, normal color. Absent: rash Course Vital Signs 10/16/24 10/17/24 10/17/24 22:22 00:04 01:18 Temperature 98.0 F 97.1 F L Pulse Rate 64 69 72 Respiratory 18 20 19 Rate Blood Pressure 147/87 138/92 127/89 O2 Sat by Pulse 100 100 100 Oximetry 10/17/24 01:44 Temperature Pulse Rate Respiratory Rate Blood Pressure 121/82 O2 Sat by Pulse Oximetry Medical Decision Making - Medical Decision Making Was pt. sent in by a medical professional or institution (, PA, T[employer]IT[employer]NAGER [employer], urgent care, hospital, or detention...) When possible be specific @ -No Did you speak to anyone other than the patient for history (EMS, parent, family, police, friend...)? What history was obtained from this source @ -No Did you review nursing and triage notes (agree or disagree)? Why? @ -I reviewed and agree with nursing and triage notes Were old charts reviewed (outside hosp., previous admission, EMS record, old EKG, old radiological studies, urgent care reports/EKG's, detention records)? Report findings @ -ER visit and CT completed on patient seen here for left flank pain. CT showing a 6 mm UPJ left renal calculus. Urinalysis was concerning of UTI for which patient received IV Rocephin and was prescribed Keflex. Case was discussed with on-call urology, Dr. Gayle, he states patient can be discharged and follow-up outpatient Differential Diagnosis (chest pain, altered mental status, abdominal pain women, abdominal pain men, vaginal bleeding, weakness, fever, dyspnea, syncope, headache, dizziness, GI bleed, back pain, seizure, CVA, palpatations, mental health, musculoskeletal)? @ -Differential Back Pain: Strain, zoster, cauda equina syndrome, epidural abscess, vertebral osteomyelitis, discitis, fracture, subluxation, disc herniation, DJD, spinal stenosis, dissection, AAA, pancreatitis, peptic ulcer disease, pyelonephritis, kidney stone, this is not meant to be an all-inclusive list. EKG interpreted by me (3pts min.). @ -None X-rays interpreted by me (1pt min.). @ -None done CT interpreted by me (1pt min.). @ -None done U/S interpreted by me (1pt. min.). @ -None done What testing was considered but not performed or refused? (CT, X-rays, U/S, labs)? Why? @ -CT abdomen pelvis considered however patient had CT completed on 10-11-2024. Patient reporting symptoms are typical and is agreeable to forego CT scan What meds were considered but not given or refused? Why? @ -None Did you discuss the management of the patient with other professionals (professionals i.e. , PA, [employer]GER [employer], lab, RT, psych nurse, social psychologist, teachers assistant, teacher, escrow officer, rn field case manager)? Give summary @ -No Was smoking cessation discussed for >3mins.? @ -No Was critical care preformed (if so, how long)? @ -No Were there social determinants of health that impacted care today? How? (Homelessness, low income, unemployed, alcoholism, drug addiction, tra nsportation, low edu. Level, literacy, decrease access to med. care, shelter, rehab)? @ -No Was there de-escalation of care discussed even if they declined (Discuss DNR or withdrawal of care, Hospice)? DNR status @ -No What co-morbidities impacted this encounter? (DM, HTN, Smoking, COPD, CAD, Cancer, CVA, ARF, Chemo, Hep., AIDS, mental health diagnosis, sleep apnea, morbid obesity)? @ -None Was patient admitted / discharged? Hospital course, mention meds given and route, prescriptions, significant lab abnormalities, going to OR and other pertinent info. @ -Discharge. 49 year old female presenting to the ER for evaluation of left flank pain along with nausea, vomiting and diarrhea. Patient is well known to this ER. History and physical exam completed. Vitals within acceptable limits. Patient in no signs of acute distress nontoxic-appearing. Abdominal exam unremarkable. No focal tenderness. Left CVA tenderness noted. Laboratory studies obtained unimpressive. Patient is mildly hypoglycemic, 70, for which patient consumed orange juice with improvement to 98 upon discharge. No significant leukocytosis, acidosis or electrolyte abnormality. Liver and kidney function normal. Urinalysis is hemorrhagic with 18 WBCs and greater than 182 RBCs this is likely due to renal calculus. Urine culture reviewed from urine obtained on 10-11-2024 showing no growth. Patient will not be started on antibiotics as hematuria and urine analysis findings consistent with renal calculus. Patient given symptomatic control in the ER, with improvement. Nausea, vomiting and diarrhea believed to be due to Mounjaro use. Patient did receive IV fluids along with symptomatic control in the ER. Imodium for diarrhea. Patient agreeable to forego CT scan. Admission was considered and offered to patient for symptom control and urology consultation, patient refused and would like to be discharged. Patient will be discharged in stable condition with follow-up to PCP and urology, referral given. Return parameters discussed. Patient verbally expressed understanding and agreement with care plan. Case discussed with ED attending, Dr. Prajapati. Undiagnosed new problem with uncertain prognosis? @ -No Drug Therapy requiring intensive monitoring for toxicity (Heparin, Nitro, Insulin, Cardizem)? @ -No Were any procedures done? @ -No Diagnosis/symptom? @ -Flank pain/hematuria/diarrhea Acute, or Chronic, or Acute on Chronic? @ -Chronic/chronic/acute Uncomplicated (without systemic symptoms) or Complicated (systemic symptoms)? @ -Uncomplicated Side effects of treatment? @ -No Exacerbation, Progression, or Severe Exacerbation? @ -No Poses a threat to life or bodily function? How? (Chest pain, USA, OR, pneumonia, PE, COPD, DKA, ARF, appy, cholecystitis, CVA, Diverticulitis, Homicidal, Suicidal, threat to staff... and all critical care pts) @ -Possible - Lab Data Result diagrams: 10/16/24 22:57 10/16/24 22:57 Lab Results 10/16/24 10/16/24 10/16/24 Range/Units 22:57 22:57 22:57 WBC 8.50 (4.50-10.00) 10*3/uL RBC 4.29 (4.10-5.20) 10*6/uL Hgb 13.0 (12.0-15.0) g/dL Hct 36.3 L (37.2-46.3) % MCV 84.6 (80.0-97.0) fL MCH 30.3 (27.0-32.0) pg MCHC 35.8 (32.0-37.0) g/dL Plt Count 257 (140-440) 10*3/uL MPV 10.2 (9.5-12.2) fL Immature Gran % (Auto) 0.1 % Neutrophils % 40.5 % Lymphocytes % 52.2 % Monocytes % 4.6 % Eosinophils % 1.8 % Basophils % 0.8 % Immature Gran # 0.01 (0.00-0.04) 10*3/uL Neutrophils # 3.44 (1.80-7.70) 10*3/uL Lymphocytes # 4.44 (0.90-5.00) 10*3/uL Monocytes # 0.39 (0.20-1.00) 10*3/uL Eosinophils # 0.15 (0.04-0.35) 10*3/uL Basophils # 0.07 (0.00-0.10) 10*3/uL Sodium 139 (137-145) mmol/L Potassium 3.7 (3.5-5.1) mmol/L Chloride 103 (98-107) mmol/L Carbon Dioxide 27 (22-30) mmol/L Anion Gap 9 mmol/L BUN 15 (7-17) mg/dL Creatinine 0.67 (0.52-1.04) mg/dL Est GFR (CKD-EPI)AfAm >90 (>60 ml/min/1.73 sqM) Est GFR (CKD-EPI)NonAf >90 (>60 ml/min/1.73 sqM) Glucose 70 L (74-99) mg/dL POC Glucose (mg/dL) (70-110) mg/dL POC Glu [employer] ID Plasma Lactic Acid Brant 0.8 (0.7-2.0) mmol/L Calcium 9.5 (8.4-10.2) mg/dL Total Bilirubin 0.9 (0.2-1.3) mg/dL AST 23 (14-36) U/L ALT 12 (4-34) U/L Alkaline Phosphatase 49 (38-126) U/L Total Protein 6.5 (6.3-8.2) g/dL Albumin 4.1 (3.5-5.0) g/dL Urine Color Urine Appearance (Clear) Urine pH (5.0-8.0) Ur Specific [place] (1.001-1.035) Urine Protein (Negative) Urine Glucose (UA) (Negative) Urine Ketones (Negative) Urine Blood (Negative) Urine Nitrite (Negative) Urine Bilirubin (Negative) Urine Urobilinogen (<2.0) mg/dL Ur Leukocyte Esterase (Negative) Urine RBC (0-5) /hpf Urine WBC (0-5) /hpf Ur Squamous Epith Cells (0-4) /hpf Calcium Oxalate Crystal (None) /hpf Urine Mucus (None) /hpf Urine Yeast (Budding) (None) /hpf Urine HCG, Qual (Not Detectd) 10/16/24 10/16/24 10/17/24 Range/Units 23:02 23:02 00:38 WBC (4.50-10.00) 10*3/uL RBC (4.10-5.20) 10*6/uL Hgb (12.0-15.0) g/dL Hct (37.2-46.3) % MCV (80.0-97.0) fL MCH (27.0-32.0) pg MCHC (32.0-37.0) g/dL Plt Count (140-440) 10*3/uL MPV (9.5-12.2) fL Immature Gran % (Auto) % Neutrophils % % Lymphocytes % % Monocytes % % Eosinophils % % Basophils % % Immature Gran # (0.00-0.04) 10*3/uL Neutrophils # (1.80-7.70) 10*3/uL Lymphocytes # (0.90-5.00) 10*3/uL Monocytes # (0.20-1.00) 10*3/uL Eosinophils # (0.04-0.35) 10*3/uL Basophils # (0.00-0.10) 10*3/uL Sodium (137-145) mmol/L Potassium (3.5-5.1) mmol/L Chloride (98-107) mmol/L Carbon Dioxide (22-30) mmol/L Anion Gap mmol/L BUN (7-17) mg/dL Creatinine (0.52-1.04) mg/dL Est GFR (CKD-EPI)AfAm (>60 ml/min/1.73 sqM) Est GFR (CKD-EPI)NonAf (>60 ml/min/1.73 sqM) Glucose (74-99) mg/dL POC Glucose (mg/dL) 98 (70-110) mg/dL POC Glu [employer] ID Randee Horowitz Plasma Lactic Acid Brant (0.7-2.0) mmol/L Calcium (8.4-10.2) mg/dL Total Bilirubin (0.2-1.3) mg/dL AST (14-36) U/L ALT (4-34) U/L Alkaline Phosphatase (38-126) U/L Total Protein (6.3-8.2) g/dL Albumin (3.5-5.0) g/dL Urine Color Light Red Urine Appearance Cloudy H (Clear) Urine pH 5.5 (5.0-8.0) Ur Specific [place] 1.021 (1.001-1.035) Urine Protein Trace H (Negative) Urine Glucose (UA) Negative (Negative) Urine Ketones Negative (Negative) Urine Blood Large H (Negative) Urine Nitrite Negative (Negative) Urine Bilirubin Negative (Negative) Urine Urobilinogen <2.0 (<2.0) mg/dL Ur Leukocyte Esterase Small H (Negative) Urine RBC >182 H (0-5) /hpf Urine WBC 18 H (0-5) /hpf Ur Squamous Epith Cells 3 (0-4) /hpf Calcium Oxalate Crystal Moderate H (None) /hpf Urine Mucus Occasional H (None) /hpf Urine Yeast (Budding) Occasional H (None) /hpf Urine HCG, Qual Not Detected (Not Detectd) Disposition Clinical Impression: Hematuria, Diarrhea Disposition: HOME SELF-CARE Condition: Stable Additional Instructions: Follow-up with PCP and urology. Return to the ER for any new or worsening symptoms. Is patient prescribed a controlled substance at d/c from ED?: No Referrals: Rajiv Sexton MD [Primary Care Provider] - 1-2 days Cameron Thakkar MD [STAFF PHYSICIAN] - 1-2 days Time of Disposition: 00:34
[2024-10-16] MEDS: SODIUM CHLORIDE 0.9% 1,000 ML IV ONE (23:08)
[2024-10-16] MEDS: HYDROmorphone 1 MG/ML 1 ML SYRINGE IVP STA (23:09)
[2024-10-16 23:28] LABS: ALT 12 U/L (4-34); AST 23 U/L (14-36); African American GFR (CKD) >90 (>60 ml/min/1.73 sqM); Albumin 4.1 g/dL (3.5-5.0); Alkaline Phosphatase 49 U/L (38-126); Anion Gap 9 mmol/L; Blood Urea Nitrogen 15 mg/dL (7-17); Calcium 9.5 mg/dL (8.4-10.2); Carbon Dioxide 27 mmol/L (22-30); Chloride 103 mmol/L (98-107); Glucose 70 mg/dL (74-99); Non-African American GFR(CKD) >90 (>60 ml/min/1.73 sqM); Sodium 139 mmol/L (137-145); Total Bilirubin 0.9 mg/dL (0.2-1.3); Total Protein 6.5 g/dL (6.3-8.2)
[2024-10-16 23:29] LABS: Potassium 3.7 mmol/L (3.5-5.1)
[2024-10-16 23:31] LABS: Appearance,Urine Cloudy (Clear); Bilirubin,Urine Negative (Negative); Blood,Urine Large (Negative); Budding Yeast,Urine Occasional /hpf; Calcium Oxalate Crystals,Urine Moderate /hpf; Color,Urine Light Red; Glucose,Urine (UA) Negative (Negative); Ketones,Urine Negative (Negative); Leukocyte Esterase,Urine Small (Negative); Mucus,Urine Occasional /hpf; Nitrite,Urine Negative (Negative); PH, Urine 5.5 (5.0-8.0); Protein,Urine Trace (Negative); RBC,Urine >182 /hpf (0-5); Specific Gravity,Urine 1.021 (1.001-1.035); Squamous Epithelial Cell,Urine 3 /hpf (0-4); Urobilinogen,Urine <2.0 mg/dL (<2.0); WBC,Urine 18 /hpf (0-5)
[2024-10-16 23:49] LABS: Basophils # (A) 0.07 10*3/uL (0.00-0.10); Basophils % (A) 0.8 %; Eosinophils # (A) 0.15 10*3/uL (0.04-0.35); Eosinophils % (A) 1.8 %; HCT 36.3 % (37.2-46.3); Lymphocytes # (A) 4.44 10*3/uL (0.90-5.00); Lymphocytes % (A) 52.2 %; MCH 30.3 pg (27.0-32.0); MCHC 35.8 g/dL (32.0-37.0); MCV 84.6 fL (80.0-97.0); Mean Platelet Volume 10.2 fL (9.5-12.2); Monocytes # (A) 0.39 10*3/uL (0.20-1.00); Monocytes % (A) 4.6 %; Neutrophils # (A) 3.44 10*3/uL (1.80-7.70); Neutrophils % (A) 40.5 %; Platelet Count 257 10*3/uL (140-440); RBC 4.29 10*6/uL (4.10-5.20)
[2024-10-17 00:06] VITALS: TEMP 97.1
[2024-10-17] MEDS: LOPERAMIDE 2 MG CAP PO STA (00:38)
[2024-10-17 00:40] LABS: Glucose,Whole Blood 98 mg/dL (70-110)
[2024-10-17] MEDS: KETOROLAC 15 MG/ML 1 ML VIAL IVP STA (01:15)
[2024-10-17] MEDS: HYDROmorphone 0.5 MG/0.5 ML SYRINGE IVP STA (01:17)
[2024-10-17 01:18] VITALS: PULSE 72; RESP 19
[2024-10-17 01:46] VITALS: BP 121/82
== END 2024-10-17 01:54 | disposition home or self-care (01) ==
LOC: EC 22:19
DX: R31.9 Hematuria, unspecified (principal); R19.7 Diarrhea, unspecified; E11.9 Type 2 diabetes mellitus without complications; F17.290 Nicotine dependence, other tobacco product, uncomplicated; Z88.0 Allergy status to penicillin; Z88.1 Allergy status to other antibiotic agents; Z88.2 Allergy status to sulfonamides; Z88.5 Allergy status to narcotic agent; Z91.041 Radiographic dye allergy status; Z88.8 Allergy status to other drugs, medicaments and biological substances
CPT/HCPCS: 36415 ×2; 80053; 83605; 85025; 81001; 81025; 87086; 87077; 87186; 99284; 96374; 96361; 96375; 96376; J1171 ×2; J1885

== ENCOUNTER 2024-10-20 14:41 | Emergency (ER) | payer OTHER ==
--- NOTE | 2024-10-20 15:16 | ED ---
Recheck HPI - General Chief Complaint: Recheck/Abnormal Lab/Rx Stated Complaint: ABN Labs Time Seen by Provider: 10/20/24 14:58 Source: patient, RN notes reviewed Mode of arrival: ambulatory Limitations: no limitations - History of Present Illness Initial Comments: 49-year-old female presents emergency department for positive urine culture. Patient states that she was instructed by hospital to report back to the emergency department for evaluation of positive urine culture. Patient states that she was informed she would be sent a an antibiotic for UTI on 10 October however no antibiotic was sent. Reevaluation On 10/17/2024 patient was dis charged instructed to follow-up with urology. Patient has positive urine culture on with growth of Enterococcus bacillus. Additionally, patient states that she was diagnosed with a left-sided UPJ 6 mm stone on 10 October. Patient has not yet had an appointment with urology. States that she is still having left-sided flank pain. Patient is still having symptoms of nausea and vomiting. - Related Data Home Medications Medication Instructions Recorded Confirmed oxyCODONE-APAP 10-325MG [Percocet 1 tab PO QID PRN 08/29/17 05/03/23 10-325 mg] PARoxetine HCL [Paxil] 40 mg PO DAILY 03/12/18 05/03/23 PARoxetine [Paxil] 20 mg PO DAILY 06/04/18 05/03/23 Loratadine 10 mg PO DAILY 04/21/20 05/03/23 Dextroamphetamine/Amphetamine 20 mg PO BID 12/07/21 05/03/23 [Dextroamp-Amphetamin 20 mg Tab] Multivitamins, Thera [Multivitamin 1 tab PO DAILY 12/07/21 05/03/23 (formulary)] SUMAtriptan succinate [Imitrex] 100 mg PO DAILY PRN 12/07/21 05/03/23 Atorvastatin [Lipitor] 40 mg PO DAILY 05/03/23 05/03/23 Cholecalciferol [Vitamin D3 (25 25 mcg PO DAILY 05/03/23 05/03/23 Mcg = 1000 Iu)] Cyanocobalamin (Vitamin B-12) 1,000 mcg PO DAILY 05/03/23 05/03/23 [Vitamin B-12] Tirzepatide [Mounjaro] 12.5 mg SQ WE 05/03/23 05/03/23 lisinopriL [Zestril] 10 mg PO DAILY 05/03/23 05/03/23 metFORMIN HCL 1,000 mg PO BID 05/03/23 05/03/23 Previous Rx's Medication Instructions Recorded Ondansetron Odt [Zofran Odt] 4 mg PO Q8HR PRN #20 tab 09/06/22 Cephalexin [Keflex] 500 mg PO Q6HR 7 Days #28 cap 09/27/23 Fluconazole 150 mg PO DIRECTED #2 tab 09/27/23 Tamsulosin [Flomax] 0.4 mg PO DAILY 14 Days #14 cap 11/26/23 Prochlorperazine [Compazine] 10 mg PO Q8H #14 tab 04/15/24 Ondansetron Odt [Zofran Odt] 4 mg PO Q8HR PRN #20 tab 05/26/24 Cephalexin [Keflex] 500 mg PO QID #40 cap 08/25/24 Ketorolac [Toradol] 10 mg PO Q8HR #15 tab 10/11/24 Tamsulosin [Flomax] 0.4 mg PO DAILY #7 cap 10/11/24 Fluconazole [Diflucan] 150 mg PO ONCE #2 tab 10/20/24 Nitrofurantoin Monohyd/M-Cryst 100 mg PO Q12HR #14 cap 10/20/24 [Macrobid] Allergies Allergy/AdvReac Type Severity Reaction Status Date / Time bupropion HCl Allergy Rash/Hives Verified 10/20/24 14:54 [From Wellbutrin] divalproex sodium Allergy Unknown Verified 10/20/24 14:54 [From Depakote] fentanyl Allergy Swelling Verified 10/20/24 14:54 Iodinated Contrast Media Allergy Anaphylaxis Verified 10/20/24 14:54 [Iodinated Contrast Media - IV Dye] Penicillins Allergy Rash/Hives/Gi Verified 10/20/24 14:54 Upset Sulfa (Sulfonamide Allergy Rash/Hives Verified 10/20/24 14:54 Antibiotics) sulfamethoxazole Allergy Rash/Hives Verified 10/20/24 14:54 [From Bactrim] trimethoprim [From Bactrim] Allergy Rash/Hives Verified 10/20/24 14:54 Review of Systems ROS Statement: Those systems with pertinent positive or pertinent negative responses have been documented in the HPI. ROS Other: All systems not noted in ROS Statement are negative. 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 History of Any Multi-Drug Resistant Organisms: ESBL Date of last positivie culture/infection: 05/14/17 MDRO Source:: ESBL URINE, Past Surgical History: Bladder Surgery, Section, Cholecystectomy, Hysterectomy, Orthopedic Surgery, Tubal Ligation Additional Past Surgical History / Comment(s): R ovarian cystectomy, laparoscopic surgery for L ovary that had attached to the bowel, D&C, numerous lithotripsies, nephroscopies, cystoscopies and stents to ureters-none in place at this time, L robotic pyeloplasty with post op infection around kidney which then required a picc line/later removed (pt states was not MRSA), L rotator cuff repair, L wrist tendon surgery, colonoscopy. Kidney stone removal. Past Anesthesia/Blood Transfusion Reactions: Family History of Problems w/ Anesthesia Additional Past Anesthesia/Blood Transfusion Reaction / Comment(s): dad-hard time waking up due to enzyme problems in liver Past Psychological History: ADD/ADHD, Anxiety, Bipolar, Depression, PTSD Smoking Status: Current every day smoker, Vaper Past Alcohol Use History: None Reported Past Drug Use History: None Reported - Past Family History Brother(s) Family Medical History: Cancer Additional Family Medical History / Comment(s): testicular Father Family Medical History: Coronary Artery Disease (CAD), CVA/TIA, Diabetes Mellitus, Renal Disease Additional Family Medical History / Comment(s): GLAUCOMA,NEUROPATHY HAD TRIPLE CABG, at 56yrs from renal disease. Mother Family Medical History: Hyperlipidemia Additional Family Medical History / Comment(s): DDD, HAD 3 vessel CABG AGE 54. General Exam Limitations: no limitations General appearance: alert, in no apparent distress Respiratory exam: Present: normal lung sounds bilaterally. Absent: respiratory distress, wheezes, rales, rhonchi, stridor Cardiovascular Exam: Present: regular rate, normal rhythm, normal heart sounds. Absent: systolic murmur, diastolic murmur, rubs, gallop, clicks GI/Abdominal exam: Present: soft, normal bowel sounds. Absent: distended, tenderness, guarding, rebound, rigid Extremities exam: Present: normal inspection, full ROM, normal capillary refill. Absent: tenderness, pedal edema, joint swelling, calf tenderness Back exam: Present: normal inspection, CVA tenderness (L). Absent: CVA tenderness (R) Skin exam: Present: warm, dry, intact, normal color. Absent: rash Course Vital Signs 10/20/24 14:52 Temperature 97.9 F Pulse Rate 85 Respiratory 18 Rate Blood Pressure 123/76 O2 Sat by Pulse 98 Oximetry Medical Decision Making - Medical Decision Making Was pt. sent in by a medical professional or institution (, PA, [employer] DRIVER, urgent care, hospital, or retirement...) When possible be specific @ -Patient was advised by hospital to report to the emergency department for further evaluation of positive urine culture. Did you speak to anyone other than the patient for history (EMS, parent, family, police, friend...)? What history was obtained from this source @ -No Did you review nursing and triage notes (agree or disagree)? Why? @ -I reviewed and agree with nursing and triage notes Were old charts reviewed (outside hosp., previous admission, EMS record, old EKG, old radiological studies, urgent care reports/EKG's, retirement records)? Report findings @ -Patient's urine culture plated positive for growth of Enterococcus bacillus with susceptibility to nitrofurantoin, penicillin, ampicillin, vancomycin Differential Diagnosis (chest pain, altered mental status, abdominal pain women, abdominal pain men, vaginal bleeding, weakness, fever, dyspnea, syncope, headache, dizziness, GI bleed, back pain, seizure, CVA, palpatations, mental health, musculoskeletal)? @ -Differential Abdominal Pain Women: Appendicitis, Cholecystitis, diverticulosis, ischemic bowel, pancreatitis, hepatitis, UTI, gastroenteritis, AAA, incarcerated hernia, bowel obstruction, constipation, inflammatory bowel, hepatitis, peptic ulcer disease, splenic infarction, perforated viscus, vulvitis, ovarian torsion, PID, kidney stone, placenta abruption, this is not meant to be an all-inclusive list EKG interpreted by me (3pts min.). @ -None X-rays interpreted by me (1pt min.). @ -X-ray KUB completed reveals a nonobstructive bowel gas pattern with no definitive renal ureteral calculi identified however bowel gas limits evaluation, previously seen left UPJ calcification is not tentatively visualized CT interpreted by me (1pt min.). @ -None done U/S interpreted by me (1pt. min.). @ -None done What testing was considered but not performed or refused? (CT, X-rays, U/S, labs)? Why? @ -None What meds were considered but not given or refused? Why? @ -None Did you discuss the management of the patient with other professionals (michael finnegan i.e. , PA, [employer] DRIVER, lab, RT, psych nurse, social sciences instructor, interlacer, teacher, data officer, shoe caser)? Give summary @ -Spoke with on-call urologist in regard to patient's positive urine culture from 10/16/2024 laboratory testing from today. Recommend the patient be discharged with Macrobid and follow-up outpatient. Was smoking cessation discussed for >3mins.? @ -No Was critical care preformed (if so, how long)? @ -No Were there social determinants of health that impacted care today? How? (Homelessness, low income, unemployed, alcoholism, drug addiction, transportation, low edu. Level, literacy, decrease access to med. care, fci, rehab)? @ -No Was there de-escalation of care discussed even if they declined (Discuss DNR or withdrawal of care, Hospice)? DNR status @ -No What co-morbidities impacted this encounter? (DM, HTN, Smoking, COPD, CAD, Cancer, CVA, ARF, Chemo, Hep., AIDS, mental health diagnosis, sleep apnea, morbid obesity)? @ -None Was patient admitted / discharged? Hospital course, mention meds given and route, prescriptions, significant lab abnormalities, going to OR and other pertinent info. @ -Discharge. 49-year-old female presents emergency department for positive urine culture. Initial vitals are stable. Patient has mild CVA tenderness on t he left-hand side. She is provided with IV fluids, Zofran and Dilaudid for pain relief. Laboratory testing including CBC, CMP unremarkable. Urinalysis reveals large amount of blood with greater than 182 red blood cells. Spoke with on-call urology was recommended patient be placed on Macrobid for positive urine culture and to follow-up outpatient. Patient is also out of prescription for Diflucan as she says that she normally has concurrent yeast infections when she takes oral antibiotics. Patient's pain is not well-controlled emergency department. Case discussed with my attending Dr. Robert Undiagnosed new problem with uncertain prognosis? @ -No Drug Therapy requiring intensive monitoring for toxicity (Heparin, Nitro, Insulin, Cardizem)? @ -No Were any procedures done? @ -No Diagnosis/symptom? @ -Positive urine culture Acute, or Chronic, or Acute on Chronic? @ -Acute Uncomplicated (without systemic symptoms) or Complicated (systemic symptoms)? @ -Uncomplicated Side effects of treatment? @ -No Exacerbation, Progression, or Severe Exacerbation? @ -No Poses a threat to life or bodily function? How? (Chest pain, [place], [place], pneumonia, PE, COPD, DKA, ARF, appy, cholecystitis, CVA, Diverticulitis, Homicidal, Suicidal, threat to staff... and all critical care pts) @ -No - Lab Data Result diagrams: 10/20/24 15:27 10/20/24 15:27 Lab Results 10/20/24 10/20/24 10/20/24 Range/Units 15:27 15:27 15:27 WBC 8.13 (4.50-10.00) 10*3/uL RBC 4.40 (4.10-5.20) 10*6/uL Hgb 13.4 (12.0-15.0) g/dL Hct 37.2 (37.2-46.3) % MCV 84.5 (80.0-97.0) fL MCH 30.5 (27.0-32.0) pg MCHC 36.0 (32.0-37.0) g/dL Plt Count 286 (140-440) 10*3/uL MPV 9.2 L (9.5-12.2) fL Immature Gran % (Auto) 0.1 % Neutrophils % 47.9 % Lymphocytes % 43.9 % Monocytes % 4.6 % Eosinophils % 2.6 % Basophils % 0.9 % Immature Gran # 0.01 (0.00-0.04) 10*3/uL Neutrophils # 3.90 (1.80-7.70) 10*3/uL Lymphocytes # 3.57 (0.90-5.00) 10*3/uL Monocytes # 0.37 (0.20-1.00) 10*3/uL Eosinophils # 0.21 (0.04-0.35) 10*3/uL Basophils # 0.07 (0.00-0.10) 10*3/uL Sodium 140 (137-145) mmol/L Potassium 3.6 (3.5-5.1) mmol/L Chloride 105 (98-107) mmol/L Carbon Dioxide 27 (22-30) mmol/L Anion Gap 8 mmol/L BUN 9 (7-17) mg/dL Creatinine 0.64 (0.52-1.04) mg/dL Est GFR (CKD-EPI)AfAm >90 (>60 ml/min/1.73 sqM) Est GFR (CKD-EPI)NonAf >90 (>60 ml/min/1.73 sqM) Glucose 79 (74-99) mg/dL Plasma Lactic Acid Brant (0.7-2.0) mmol/L Calcium 9.9 (8.4-10.2) mg/dL Total Bilirubin 0.9 (0.2-1.3) mg/dL AST 21 (14-36) U/L ALT 15 (4-34) U/L Alkaline Phosphatase 67 (38-126) U/L Total Protein 6.9 (6.3-8.2) g/dL Albumin 4.4 (3.5-5.0) g/dL Lipase 104 (23-300) U/L Urine Color Colorless Urine Appearance Clear (Clear) Urine pH 6.5 (5.0-8.0) Ur Specific [place] 1.009 (1.001-1.035) Urine Protein Negative (Negative) Urine Glucose (UA) Negative (Negative) Urine Ketones Negative (Negative) Urine Blood Large H (Negative) Urine Nitrite Negative (Negative) Urine Bilirubin Negative (Negative) Urine Urobilinogen <2.0 (<2.0) mg/dL Ur Leukocyte Esterase Small H (Negative) Urine RBC >182 H (0-5) /hpf Urine WBC 4 (0-5) /hpf Ur Squamous Epith Cells 1 (0-4) /hpf Urine Mucus Rare H (None) /hpf 10/20/24 Range/Units 15:27 WBC (4.50-10.00) 10*3/uL RBC (4.10-5.20) 10*6/uL Hgb (12.0-15.0) g/dL Hct (37.2-46.3) % MCV (80.0-97.0) fL MCH (27.0-32.0) pg MCHC (32.0-37.0) g/dL Plt Count (140-440) 10*3/uL MPV (9.5-12.2) fL Immature Gran % (Auto) % Neutrophils % % Lymphocytes % % Monocytes % % Eosinophils % % Basophils % % Immature Gran # (0.00-0.04) 10*3/uL Neutrophils # (1.80-7.70) 10*3/uL Lymphocytes # (0.90-5.00) 10*3/uL Monocytes # (0.20-1.00) 10*3/uL Eosinophils # (0.04-0.35) 10*3/uL Basophils # (0.00-0.10) 10*3/uL Sodium (137-145) mmol/L Potassium (3.5-5.1) mmol/L Chloride (98-107) mmol/L Carbon Dioxide (22-30) mmol/L Anion Gap mmol/L BUN (7-17) mg/dL Creatinine (0.52-1.04) mg/dL Est GFR (CKD-EPI)AfAm (>60 ml/min/1.73 sqM) Est GFR (CKD-EPI)NonAf (>60 ml/min/1.73 sqM) Glucose (74-99) mg/dL Plasma Lactic Acid Brant 2.1 H* (0.7-2.0) mmol/L Calcium (8.4-10.2) mg/dL Total Bilirubin (0.2-1.3) mg/dL AST (14-36) U/L ALT (4-34) U/L Alkaline Phosphatase (38-126) U/L Total Protein (6.3-8.2) g/dL Albumin (3.5-5.0) g/dL Lipase (23-300) U/L Urine Color Urine Appearance (Clear) Urine pH (5.0-8.0) Ur Specific [place] (1.001-1.035) Urine Protein (Negative) Urine Glucose (UA) (Negative) Urine Ketones (Negative) Urine Blood (Negative) Urine Nitrite (Negative) Urine Bilirubin (Negative) Urine Urobilinogen (<2.0) mg/dL Ur Leukocyte Esterase (Negative) Urine RBC (0-5) /hpf Urine WBC (0-5) /hpf Ur Squamous Epith Cells (0-4) /hpf Urine Mucus (None) /hpf Disposition Clinical Impression: Urine culture positive Disposition: HOME SELF-CARE Condition: Good Instructions (If sedation given, give patient instructions): Urinary Tract Infection in Women (ED) Additional Instructions: Please return to the Emergency Department if symptoms worsen or any other liu rns. Prescriptions: Fluconazole [Diflucan] 150 mg PO ONCE #2 tab Nitrofurantoin Monohyd/M-Cryst [Macrobid] 100 mg PO Q12HR #14 cap Is patient prescribed a controlled substance at d/c from ED?: No Referrals: Rajiv Sexton MD [Primary Care Provider] - 1-2 days Luis Kincaid MD [STAFF PHYSICIAN] - 1-2 days Time of Disposition: 17:34
[2024-10-20] MEDS: SODIUM CHLORIDE 0.9% 1,000 ML IV ONE (15:29)
[2024-10-20] MEDS: HYDROmorphone 2 MG/ML 1 ML SYRINGE IVP STA (15:31)
[2024-10-20] MEDS: ONDANSETRON 4 MG/2 ML VIAL IVP STA (15:31)
[2024-10-20 15:43] LABS: Basophils # (A) 0.07 10*3/uL (0.00-0.10); Basophils % (A) 0.9 %; Eosinophils # (A) 0.21 10*3/uL (0.04-0.35); Eosinophils % (A) 2.6 %; HCT 37.2 % (37.2-46.3); HGB 13.4 g/dL (12.0-15.0); Lymphocytes # (A) 3.57 10*3/uL (0.90-5.00); Lymphocytes % (A) 43.9 %; MCH 30.5 pg (27.0-32.0); MCV 84.5 fL (80.0-97.0); Mean Platelet Volume 9.2 fL (9.5-12.2); Monocytes # (A) 0.37 10*3/uL (0.20-1.00); Monocytes % (A) 4.6 %; Neutrophils % (A) 47.9 %; Platelet Count 286 10*3/uL (140-440); RDW 12.2 % (11.5-14.5); WBC 8.13 10*3/uL (4.50-10.00)
[2024-10-20 16:09] LABS: Appearance,Urine Clear (Clear); Bilirubin,Urine Negative (Negative); Blood,Urine Large (Negative); Color,Urine Colorless; Glucose,Urine (UA) Negative (Negative); Ketones,Urine Negative (Negative); Leukocyte Esterase,Urine Small (Negative); Mucus,Urine Rare /hpf; Nitrite,Urine Negative (Negative); PH, Urine 6.5 (5.0-8.0); Protein,Urine Negative (Negative); RBC,Urine >182 /hpf (0-5); Specific Gravity,Urine 1.009 (1.001-1.035); Squamous Epithelial Cell,Urine 1 /hpf (0-4); Urobilinogen,Urine <2.0 mg/dL (<2.0); WBC,Urine 4 /hpf (0-5)
[2024-10-20 16:10] LABS: ALT 15 U/L (4-34); AST 21 U/L (14-36); African American GFR (CKD) >90 (>60 ml/min/1.73 sqM); Albumin 4.4 g/dL (3.5-5.0); Alkaline Phosphatase 67 U/L (38-126); Anion Gap 8 mmol/L; Blood Urea Nitrogen 9 mg/dL (7-17); Calcium 9.9 mg/dL (8.4-10.2); Carbon Dioxide 27 mmol/L (22-30); Chloride 105 mmol/L (98-107); Glucose 79 mg/dL (74-99); Lipase 104 U/L (23-300); Non-African American GFR(CKD) >90 (>60 ml/min/1.73 sqM); Potassium 3.6 mmol/L (3.5-5.1); Sodium 140 mmol/L (137-145); Total Bilirubin 0.9 mg/dL (0.2-1.3); Total Protein 6.9 g/dL (6.3-8.2)
--- NOTE | 2024-10-20 17:11 | XR ---
EXAMINATION TYPE: XR KUB DATE OF EXAM: 10/20/2024 COMPARISON: Pelvis 10/10/2024, KUB radiograph 08/25/2024 HISTORY: Pain, 6 mm left UPJ stone. TECHNIQUE: Single upright KUB image of the abdomen is obtained FINDINGS: Small bowel demonstrates no evidence for dilatation or air fluid levels. Gas and fecal material is seen in non-distended colon. No convincing evidence for pneumoperitoneum. Cholecystectomy clips and vertebral quadrant. No definitive renal calculi. No definitive ureteral calculus identified however bowel gas limits eval uation. Previously seen left UPJ calcification is not tentatively visualized. Pelvic phleboliths rede monstrated. The lung bases are clear. The osseous structures are intact. Levoscoliotic curvature of the lumbar spine. IMPRESSION: 1. Overall nonobstructive bowel gas pattern. 2. No definitive renal or ureteral calculi identified however bowel gas limits evaluation. Previousl y seen left UPJ calcification is not tentatively visualized. May have passed. Consider further evalua tion with CT if there is continued clinical concern. [facility], , 10/20/2024 5:09 PM
[2024-10-20] MEDS: HYDROmorphone 0.5 MG/0.5 ML SYRINGE IVP STA (17:48)
[2024-10-20 17:53] VITALS: BP 125/83; PULSE 78; RESP 16; TEMP 98.3
== END 2024-10-20 17:52 | disposition home or self-care (01) ==
LOC: EC 14:41
DX: R11.2 Nausea with vomiting, unspecified (principal); B95.2 Enterococcus as the cause of diseases classified elsewhere; F17.290 Nicotine dependence, other tobacco product, uncomplicated; Z88.1 Allergy status to other antibiotic agents; Z88.2 Allergy status to sulfonamides; Z88.0 Allergy status to penicillin; Z88.8 Allergy status to other drugs, medicaments and biological substances; Z91.041 Radiographic dye allergy status; Z83.49 Family history of other endocrine, nutritional and metabolic diseases
CPT/HCPCS: 36415; 80053; 83605; 83690; 85025; 81001; 74018; 99284; 96374; 96375; 96376; 96361 ×2; J1171 ×2; J2405

== ENCOUNTER 2024-10-21 01:10 | Emergency (ER) | payer OTHER ==
--- NOTE | 2024-10-21 02:06 | ED ---
Female Urogenital HPI - General Chief complaint: Urogenital Stated complaint: abd pain Time Seen by Provider: 10/21/24 02:01 Source: patient, RN notes reviewed Mode of arrival: ambulatory Limitations: no limitations - History of Present Illness Initial comments: 49-year-old female presenting for left flank pain. States she was diagnosed with a kidney stone on the left side measuring 6 mm approximately 5 days ago. She was seen in the ER earlier today as she was called back for a positive urine culture and placed on Macrobid. Lab work, urinalysis, and KUB were performed earlier today. Patient states she has been experiencing nausea and vomiting today and 10 out of 10 pain. Admits to hematuria however denies dysuria, urinary frequency, or urgency. she was planning on scheduling an appointment with Dr. Kincaid in the morning. - Related Data Home Medications Medication Instructions Recorded Confirmed oxyCODONE-APAP 10-325MG [Percocet 1 tab PO QID PRN 08/29/17 05/03/23 10-325 mg] PARoxetine HCL [Paxil] 40 mg PO DAILY 03/12/18 05/03/23 PARoxetine [Paxil] 20 mg PO DAILY 06/04/18 05/03/23 Loratadine 10 mg PO DAILY 04/21/20 05/03/23 Dextroamphetamine/Amphetamine 20 mg PO BID 12/07/21 05/03/23 [Dextroamp-Amphetamin 20 mg Tab] Multivitamins, Thera [Multivitamin 1 tab PO DAILY 12/07/21 05/03/23 (formulary)] SUMAtriptan succinate [Imitrex] 100 mg PO DAILY PRN 12/07/21 05/03/23 Atorvastatin [Lipitor] 40 mg PO DAILY 05/03/23 05/03/23 Cholecalciferol [Vitamin D3 (25 25 mcg PO DAILY 05/03/23 05/03/23 Mcg = 1000 Iu)] Cyanocobalamin (Vitamin B-12) 1,000 mcg PO DAILY 05/03/23 05/03/23 [Vitamin B-12] Tirzepatide [Mounjaro] 12.5 mg SQ WE 05/03/23 05/03/23 lisinopriL [Zestril] 10 mg PO DAILY 05/03/23 05/03/23 metFORMIN HCL 1,000 mg PO BID 05/03/23 05/03/23 Previous Rx's Medication Instructions Recorded Ondansetron Odt [Zofran Odt] 4 mg PO Q8HR PRN #20 tab 09/06/22 Cephalexin [Keflex] 500 mg PO Q6HR 7 Days #28 cap 09/27/23 Fluconazole 150 mg PO DIRECTED #2 tab 09/27/23 Tamsulosin [Flomax] 0.4 mg PO DAILY 14 Days #14 cap 11/26/23 Prochlorperazine [Compazine] 10 mg PO Q8H #14 tab 04/15/24 Ondansetron Odt [Zofran Odt] 4 mg PO Q8HR PRN #20 tab 05/26/24 Cephalexin [Keflex] 500 mg PO QID #40 cap 08/25/24 Ketorolac [Toradol] 10 mg PO Q8HR #15 tab 10/11/24 Tamsulosin [Flomax] 0.4 mg PO DAILY #7 cap 10/11/24 Fluconazole [Diflucan] 150 mg PO ONCE #2 tab 10/20/24 Nitrofurantoin Monohyd/M-Cryst 100 mg PO Q12HR #14 cap 10/20/24 [Macrobid] Allergies Allergy/AdvReac Type Severity Reaction Status Date / Time bupropion HCl Allergy Rash/Hives Verified 10/21/24 01:11 [From Wellbutrin] divalproex sodium Allergy Unknown Verified 10/21/24 01:11 [From Depakote] fentanyl Allergy Swelling Verified 10/21/24 01:11 Iodinated Contrast Media Allergy Anaphylaxis Verified 10/21/24 01:11 [Iodinated Contrast Media - IV Dye] Penicillins Allergy Rash/Hives/Gi Verified 10/21/24 01:11 Upset Sulfa (Sulfonamide Allergy Rash/Hives Verified 10/21/24 01:11 Antibiotics) sulfamethoxazole Allergy Rash/Hives Verified 10/21/24 01:11 [From Bactrim] trimethoprim [From Bactrim] Allergy Rash/Hives Verified 10/21/24 01:11 Review of Systems ROS Statement: Those systems with pertinent positive or pertinent negative responses have been documented in the HPI. ROS Other: All systems not noted in ROS Statement are negative. 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 History of Any Multi-Drug Resistant Organisms: ESBL Date of last positivie culture/infection: 05/14/17 MDRO Source:: ESBL URINE, Past Surgical History: Bladder Surgery, Section, Cholecystectomy, Hysterectomy, Orthopedic Surgery, Tubal Ligation Additional Past Surgical History / Comment(s): R ovarian cystectomy, laparoscopic surgery for L ovary that had attached to the bowel, D&C, numerous lithotripsies, nephroscopies, cystoscopies and stents to ureters-none in place at this time, L robotic pyeloplasty with post op infection around kidney which then required a picc line/later removed (pt states was not MRSA), L rotator cuff repair, L wrist tendon surgery, colonoscopy. Kidney stone removal. Past Anesthesia/Blood Transfusion Reactions: Family History of Problems w/ Anesthesia Additional Past Anesthesia/Blood Transfusion Reaction / Comment(s): dad-hard time waking up due to enzyme problems in liver Past Psychological History: ADD/ADHD, Anxiety, Bipolar, Depression, PTSD Smoking Status: Current every day smoker, Vaper Past Alcohol Use History: None Reported Past Drug Use History: None Reported - Past Family History Brother(s) Family Medical History: Cancer Additional Family Medical History / Comment(s): testicular Father Family Medical History: Coronary Artery Disease (CAD), CVA/TIA, Diabetes Mellitus, Renal Disease Additional Family Medical History / Comment(s): GLAUCOMA,NEUROPATHY HAD TRIPLE CABG, at 56yrs from renal disease. Mother Family Medical History: Hyperlipidemia Additional Family Medical History / Comment(s): DDD, HAD 3 vessel CABG AGE 54. General Exam Limitations: no limitations General appearance: alert, in no apparent distress Head exam: Present: atraumatic, normocephalic, normal inspection GI/Abdominal exam: Present: soft, normal bowel sounds. Absent: distended, tenderness, guarding, rebound, rigid Back exam: Absent: CVA tenderness (R), CVA tenderness (L) Neurological exam: Present: alert, oriented X3 Psychiatric exam: Present: normal affect, normal mood Skin exam: Present: warm, dry, intact, normal color. Absent: rash Course Vital Signs 10/21/24 10/21/24 01:11 03:33 Temperature 97.5 F L 98.1 F Pulse Rate 87 74 Respiratory 18 16 Rate Blood Pressure 145/77 118/85 O2 Sat by Pulse 100 98 Oximetry Medical Decision Making - Medical Decision Making Was pt. sent in by a medical professional or institution (, STUART, GREEK PROFESSOR, urgent care, hospital, or [place] health [place] facility...) When possible be specific @ -No Did you speak to anyone other than the patient for history (EMS, parent, family, police, friend...)? What history was obtained from this source @ -No Did you review nursing and triage notes (agree or disagree)? Why? @ -I reviewed and agree with nursing and triage notes Were old charts reviewed (outside hosp., previous admission, EMS record, old EKG, old radiological studies, urgent care reports/EKG's, [place] health care facility records)? Report findings @ -Reviewed ER chart from earlier today and CT from 10/10 which revealed mild left hydronephrosis with obstructing 6 mm calculus at UPJ Differential Diagnosis (chest pain, altered mental status, abdominal pain women, abdominal pain men, vaginal bleeding, weakness, fever, dyspnea, syncope, headache, dizziness, GI bleed, back pain, seizure, CVA, palpatations, mental health, musculoskeletal)? @ -Not applicable EKG interpreted by me (3pts min.). @ -None X-rays interpreted by me (1pt min.). @ -None done CT interpreted by me (1pt min.). @ -None done U/S interpreted by me (1pt. min.). @ -None done What testing was considered but not performed or refused? (CT, X-rays, U/S, l abs)? Why? @ -CT deferred as patient had CT 10 days ago revealing left-sided kidney stone. What meds were considered but not given or refused? Why? @ -None Did you discuss the management of the patient with other professionals (professionals i.e. STUART Yeager, GREEK PROFESSOR, lab, RT, psych nurse, social science analyst, veneer splicer, teacher, booking officer, casey saw operator)? Give summary @ -No Was smoking cessation discussed for >3mins.? @ -No Was critical care preformed (if so, how long)? @ -No Were there social determinants of health that impacted care today? How? (Homelessness, low income, unemployed, alcoholism, drug addiction, transportation, low edu. Level, literacy, decrease access to med. care, correction, rehab)? @ -No Was there de-escalation of care discussed even if they declined (Discuss DNR or withdrawal of care, Hospice)? DNR status @ -No What co-morbidities impacted this encounter? (DM, HTN, Smoking, COPD, CAD, Cancer, CVA, ARF, Chemo, Hep., AIDS, mental health diagnosis, sleep apnea, morbid obesity)? @ -None Was patient admitted / discharged? Hospital course, mention meds given and route, prescriptions, significant lab abnormalities, going to OR and other pertinent info. @ - discharge. 49-year-old female presenting for left flank pain and nausea/vomiting. Patient was recently diagnosed with left-sided kidney stone and is in the process of scheduling outpatient appointment with urologist. Patient is well-appearing, nontoxic. Patient is afebrile with no CVA tenderness. Decided with patient to forego imaging and lab work as she had this done earlier today. Provided with IV fluids, analgesics, and antiemetics and reports significant improvement of symptoms. Advised to follow-up with urology today as planned. Appropriate return precautions discussed. Patient is agreeable to this plan. Case was discussed with my ED attending Dr. Churchill. Undiagnosed new problem with uncertain prognosis? @ -No Drug Therapy requiring intensive monitoring for toxicity (Heparin, Nitro, Insulin, Cardizem)? @ -No Were any procedures done? @ -No Diagnosis/symptom? @ -Left flank pain, left nephrolithiasis Acute, or Chronic, or Acute on Chronic? @ -Acute Uncomplicated (without systemic symptoms) or Complicated (systemic symptoms)? @ -Uncomplicated Side effects of treatment? @ -No Exacerbation, Progression, or Severe Exacerbation? @ -No Poses a threat to life or bodily function? How? (Chest pain, [place], [place], pneumonia, PE, COPD, DKA, ARF, appy, cholecystitis, CVA, Diverticulitis, Homicidal, Suicidal, threat to staff... and all critical care pts) @ -Not at this time Disposition Clinical Impression: Left nephrolithiasis Disposition: HOME SELF-CARE Condition: Stable Instructions (If sedation given, give patient instructions): Kidney Stones (ED) Additional Instructions: Follow-up with Dr. Kincaid today. Please return to the Emergency Department if symptoms worsen or any other concerns. Is patient prescribed a controlled substance at d/c from ED?: No Referrals: Rajiv Sexton MD [Primary Care Provider] - 1-2 days Time of Disposition: 03:34
[2024-10-21] MEDS: METOCLOPRAMIDE 5 MG/ML 2 ML VIAL IVP STA (02:26)
[2024-10-21] MEDS: KETOROLAC 15 MG/ML 1 ML VIAL IVP STA (02:28)
[2024-10-21] MEDS: SODIUM CHLORIDE 0.9% 1,000 ML IV STA (02:30)
[2024-10-21] MEDS: HYDROmorphone 2 MG/ML 1 ML SYRINGE IVP STA (02:33)
[2024-10-21 03:34] VITALS: BP 118/85; PULSE 74; RESP 16; TEMP 98.1
== END 2024-10-21 03:57 | disposition home or self-care (01) ==
LOC: EC 01:10
DX: N20.0 Calculus of kidney (principal); F17.290 Nicotine dependence, other tobacco product, uncomplicated; Z88.0 Allergy status to penicillin; Z88.1 Allergy status to other antibiotic agents; Z88.2 Allergy status to sulfonamides; Z88.5 Allergy status to narcotic agent; Z91.041 Radiographic dye allergy status; Z88.8 Allergy status to other drugs, medicaments and biological substances
CPT/HCPCS: 99284; 96374; 96375; 96361; J1171; J2765; J1885

== ENCOUNTER 2024-12-01 19:00 | Emergency (ER) | payer OTHER ==
--- NOTE | 2024-12-01 19:15 | ED ---
Abdominal Pain HPI - General Chief Complaint: Abdominal Pain Stated Complaint: Back Pain Time Seen by Provider: 12/01/24 19:11 Source: patient, RN notes reviewed, old records reviewed Mode of arrival: ambulatory Limitations: no limitations - History of Present Illness Initial Comments: This is a 49 female to the ER for evaluation patient presents today for evaluation regards to severe abdominal pain nausea vomiting unable to take medications at home. Severe abdominal pain here in the ER no fevers no other complaints MD Complaint: abdominal pain -: days(s) Location: diffuse, periumbilical Migration to: epigastric, suprapubic Severity: moderate Severity scale (1-10): 7 Quality: sharp Consistency: constant Improves With: nothing Worsens With: nothing Associated Symptoms: nausea, vomiting Treatments Prior to Arrival: other (0) - Related Data Home Medications Medication Instructions Recorded Confirmed oxyCODONE-APAP 10-325MG [Percocet 1 tab PO QID PRN 08/29/17 05/03/23 10-325 mg] PARoxetine HCL [Paxil] 40 mg PO DAILY 03/12/18 05/03/23 PARoxetine [Paxil] 20 mg PO DAILY 06/04/18 05/03/23 Loratadine 10 mg PO DAILY 04/21/20 05/03/23 Dextroamphetamine/Amphetamine 20 mg PO BID 12/07/21 05/03/23 [Dextroamp-Amphetamin 20 mg Tab] Multivitamins, Thera [Multivitamin 1 tab PO DAILY 12/07/21 05/03/23 (formulary)] SUMAtriptan succinate [Imitrex] 100 mg PO DAILY PRN 12/07/21 05/03/23 Atorvastatin [Lipitor] 40 mg PO DAILY 05/03/23 05/03/23 Cholecalciferol [Vitamin D3 (25 25 mcg PO DAILY 05/03/23 05/03/23 Mcg = 1000 Iu)] Cyanocobalamin (Vitamin B-12) 1,000 mcg PO DAILY 05/03/23 05/03/23 [Vitamin B-12] Tirzepatide [Mounjaro] 12.5 mg SQ WE 05/03/23 05/03/23 lisinopriL [Zestril] 10 mg PO DAILY 05/03/23 05/03/23 metFORMIN HCL 1,000 mg PO BID 05/03/23 05/03/23 Previous Rx's Medication Instructions Recorded Ondansetron Odt [Zofran Odt] 4 mg PO Q8HR PRN #20 tab 09/06/22 Cephalexin [Keflex] 500 mg PO Q6HR 7 Days #28 cap 09/27/23 Fluconazole 150 mg PO DIRECTED #2 tab 09/27/23 Tamsulosin [Flomax] 0.4 mg PO DAILY 14 Days #14 cap 11/26/23 Prochlorperazine [Compazine] 10 mg PO Q8H #14 tab 04/15/24 Ondansetron Odt [Zofran Odt] 4 mg PO Q8HR PRN #20 tab 05/26/24 Cephalexin [Keflex] 500 mg PO QID #40 cap 08/25/24 Ketorolac [Toradol] 10 mg PO Q8HR #15 tab 10/11/24 Tamsulosin [Flomax] 0.4 mg PO DAILY #7 cap 10/11/24 Fluconazole [Diflucan] 150 mg PO ONCE #2 tab 10/20/24 Nitrofurantoin Monohyd/M-Cryst 100 mg PO Q12HR #14 cap 10/20/24 [Macrobid] Allergies Allergy/AdvReac Type Severity Reaction Status Date / Time bupropion HCl Allergy Rash/Hives Verified 12/01/24 19:13 [From Wellbutrin] divalproex sodium Allergy Unknown Verified 12/01/24 19:13 [From Depakote] fentanyl Allergy Swelling Verified 12/01/24 19:13 Iodinated Contrast Media Allergy Anaphylaxis Verified 12/01/24 19:13 [Iodinated Contrast Media - IV Dye] Penicillins Allergy Rash/Hives/Gi Verified 12/01/24 19:13 Upset Sulfa (Sulfonamide Allergy Rash/Hives Verified 12/01/24 19:13 Antibiotics) sulfamethoxazole Allergy Rash/Hives Verified 12/01/24 19:13 [From Bactrim] trimethoprim [From Bactrim] Allergy Rash/Hives Verified 12/01/24 19:13 Review of Systems ROS Statement: Those systems with pertinent positive or pertinent negative responses have been documented in the HPI. ROS Other: All systems not noted in ROS Statement are negative. 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 History of Any Multi-Drug Resistant Organisms: ESBL Date of last positivie culture/infection: 05/14/17 MDRO Source:: ESBL URINE, Past Surgical History: Bladder Surgery, Section, Cholecystectomy, Hysterectomy, Orthopedic Surgery, Tubal Ligation Additional Past Surgical History / Comment(s): R ovarian cystectomy, laparoscopic surgery for L ovary that had attached to the bowel, D&C, numerous lithotripsies, nephroscopies, cystoscopies and stents to ureters-none in place at this time, L robotic pyeloplasty with post op infection around kidney which then required a picc line/later removed (pt states was not MRSA), L rotator cuff repair, L wrist tendon surgery, colonoscopy. Kidney stone removal. Past Anesthesia/Blood Transfusion Reactions: Family History of Problems w/ Anesthesia Additional Past Anesthesia/Blood Transfusion Reaction / Comment(s): dad-hard time waking up due to enzyme problems in liver Past Psychological History: ADD/ADHD, Anxiety, Bipolar, Depression, PTSD Smoking Status: Current every day smoker, Vaper Past Alcohol Use History: None Reported Past Drug Use History: None Reported - Past Family History Brother(s) Family Medical History: Cancer Additional Family Medical History / Comment(s): testicular Father Family Medical History: Coronary Artery Disease (CAD), CVA/TIA, Diabetes Mellitu s, Renal Disease Additional Family Medical History / Comment(s): GLAUCOMA,NEUROPATHY HAD TRIPLE CABG, at 56yrs from renal disease. Mother Family Medical History: Hyperlipidemia Additional Family Medical History / Comment(s): DDD, HAD 3 vessel CABG AGE 54. General Exam General appearance: alert, in no apparent distress Head exam: Present: atraumatic, normocephalic, normal inspection Eye exam: Present: normal appearance, PERRL, EOMI. Absent: scleral icterus, conjunctival injection, periorbital swelling ENT exam: Present: normal exam, mucous membranes moist Neck exam: Present: normal inspection. Absent: tenderness, meningismus, lymphadenopathy Respiratory exam: Present: normal lung sounds bilaterally. Absent: respiratory distress, wheezes, rales, rhonchi, stridor Cardiovascular Exam: Present: regular rate, normal rhythm, normal heart sounds. Absent: systolic murmur, diastolic murmur, rubs, gallop, clicks GI/Abdominal exam: Present: soft, normal bowel sounds. Absent: distended, tenderness, guarding, rebound, rigid Extremities exam: Present: normal inspection, full ROM, normal capillary refill. Absent: tenderness, pedal edema, joint swelling, calf tenderness Back exam: Present: normal inspection Neurological exam: Present: alert, oriented X3, CN II-XII intact Psychiatric exam: Present: normal affect, normal mood Skin exam: Present: warm, dry, intact, normal color. Absent: rash Course Vital Signs 12/01/24 19:10 Temperature 98.0 F Pulse Rate 99 Respiratory 18 Rate Blood Pressure 132/83 O2 Sat by Pulse 100 Oximetry - Reevaluation(s) Reevaluation #1: 12/01/24 20:02 Medical records reviewed Reevaluation #2: 12/01/24 20:03 Patient's symptoms improved here in the ER Reevaluation #3: 12/01/24 20:03 Patient informed of results questions answered Reevaluation #4: Was pt. sent in by a medical professional or institution (, PA, ORNAMENTAL IRONWORKER HELPER, urgent care, hospital, or custodial...) When possible be specific @ -no Did you speak to anyone other than the patient for history (EMS, parent, family, police, friend...)? What history was obtained from this source @ -no Did you review nursing and triage notes (agree or disagree)? Why? @ -agree Are old charts reviewed (outside hosp., previous admission, EMS record, old EKG, old radiological studies, urgent care reports/EKG's, custodial records)? Report findings @ -yes Differential Diagnosis (chest pain, altered mental status, abdominal pain women, abdominal pain men, vaginal bleeding, weakness, fever, dyspnea, syncope, headache, dizziness, GI bleed, back pain, seizure, CVA, palpatations, mental hea lth, musculoskeletal)? @ -prior EKG interpreted by me (3pts min.). @ -yes X-rays interpreted by me (1pt min.). @ -yes negative for acute disease CT interpreted by me (1pt min.). @ -no U/S interpreted by me (1pt. min.). @ -no What testing was considered but not performed or refused? (CT, X-rays, U/S, labs)? Why? @ -none What meds were considered but not given or refused? Why? @ -none Did you discuss the management of the patient with other professionals (professionals i.e. DrKarli, PA, ORNAMENTAL IRONWORKER HELPER, lab, RT, psych nurse, social security benefits interviewer, victims advocate clerk/specialist, teacher, wildlife officer, case management specialist)? Give summary @ -no Was smoking cessation discussed for >3mins.? @ -no Was critical care preformed (if so, how long)? @ -no Were there social determinants of health that impacted care today? How? (Homelessness, low income, unemployed, alcoholism, drug addiction, transportation, low edu. Level, literacy, decrease access to med. care, assisted, rehab)? @ -none Was there de-escalation of care discussed even if they declined (Discuss DNR or withdrawal of care, Hospice)? DNR status @ -no What co-morbidities impacted this encounter? (DM, HTN, Smoking, COPD, CAD, Cancer, CVA, ARF, Chemo, Hep., AIDS, mental health diagnosis, sleep apnea, morbid obesity)? @ -none Was patient admitted / discharged? Hospital course, mention meds given and route, prescriptions, significant lab abnormalities, going to OR and other per tinent info. @ - Undiagnosed new problem with uncertain prognosis? @ -no Drug Therapy requiring intensive monitoring for toxicity (Heparin, Nitro, Insulin, Cardizem)? @ -no Were any procedures done? @ -no Diagnosis/symptom? @ - Acute, or Chronic, or Acute on Chronic? @ -Acute Uncomplicated (without systemic symptoms) or Complicated (systemic symptoms)? @ -Complicated Side effects of treatment? @ -no Exacerbation, Progression, or Severe Exacerbation? @ -exacerbation Poses a threat to life or bodily function? How? (Chest pain, [place], [place], pneumonia, PE, COPD, DKA, ARF, appy, cholecystitis, CVA, Diverticulitis, Homicidal, Suicidal, threat to staff... and all critical care pts) @ -yes Reevaluation #5: Differential Abdominal Pain Women: Appendicitis, Cholecystitis, diverticulosis, ischemic bowel, pancreatitis, hepatitis, UTI, gastroenteritis, AAA, incarcerated hernia, bowel obstruction, constipation, inflammatory bowel, hepatitis, peptic ulcer disease, splenic infarction, perforated viscus, vulvitis, ovarian torsion, PID, kidney stone, placenta abruption, this is not meant to be an all-inclusive list Medical Decision Making - Medical Decision Making 49 female to ER for evaluation of severe abdominal pain patient's pain is well- controlled here in the ER patient can be discharged home - Lab Data Result diagrams: 12/01/24 19:39 Lab Results 12/01/24 Range/Units 19:39 WBC 8.47 (4.50-10.00) 10*3/uL RBC 4.31 (4.10-5.20) 10*6/uL Hgb 13.1 (12.0-15.0) g/dL Hct 36.8 L (37.2-46.3) % MCV 85.4 (80.0-97.0) fL MCH 30.4 (27.0-32.0) pg MCHC 35.6 (32.0-37.0) g/dL Plt Count 266 (140-440) 10*3/uL MPV 9.4 L (9.5-12.2) fL Immature Gran % (Auto) 0.1 % Neutrophils % 41.2 % Lymphocytes % 48.5 % Monocytes % 7.4 % Eosinophils % 2.1 % Basophils % 0.7 % Immature Gran # 0.01 (0.00-0.04) 10*3/uL Neutrophils # 3.48 (1.80-7.70) 10*3/uL Lymphocytes # 4.11 (0.90-5.00) 10*3/uL Monocytes # 0.63 (0.20-1.00) 10*3/uL Eosinophils # 0.18 (0.04-0.35) 10*3/uL Basophils # 0.06 (0.00-0.10) 10*3/uL Disposition Clinical Impression: Intractable pain, Abdominal pain Disposition: HOME SELF-CARE Condition: Good Instructions (If sedation given, give patient instructions): Abdominal Pain (ED) Is patient prescribed a controlled substance at d/c from ED?: No Referrals: Rajiv Sexton MD [Primary Care Provider] - 1-2 days Time of Disposition: 20:30
[2024-12-01] MEDS: HYDROmorphone 0.5 MG/0.5 ML SYRINGE IVP STA (19:33)
[2024-12-01] MEDS: diphenhydrAMINE 50 MG/ML 1 ML VIAL IVP STA (19:37)
[2024-12-01] MEDS: SODIUM CHLORIDE 0.9% 1,000 ML IV ONE (19:37)
[2024-12-01] MEDS: PROCHLORPERAZINE INJ 10 MG/2 ML VIAL IVP STA (19:37)
[2024-12-01 19:55] LABS: Basophils # (A) 0.06 10*3/uL (0.00-0.10); Basophils % (A) 0.7 %; Eosinophils # (A) 0.18 10*3/uL (0.04-0.35); Eosinophils % (A) 2.1 %; HCT 36.8 % (37.2-46.3); HGB 13.1 g/dL (12.0-15.0); Lymphocytes # (A) 4.11 10*3/uL (0.90-5.00); Lymphocytes % (A) 48.5 %; MCH 30.4 pg (27.0-32.0); MCHC 35.6 g/dL (32.0-37.0); MCV 85.4 fL (80.0-97.0); Mean Platelet Volume 9.4 fL (9.5-12.2); Monocytes # (A) 0.63 10*3/uL (0.20-1.00); Monocytes % (A) 7.4 %; Neutrophils # (A) 3.48 10*3/uL (1.80-7.70); Neutrophils % (A) 41.2 %; Platelet Count 266 10*3/uL (140-440); RBC 4.31 10*6/uL (4.10-5.20); RDW 11.9 % (11.5-14.5); WBC 8.47 10*3/uL (4.50-10.00)
[2024-12-01 20:07] LABS: ALT 14 U/L (4-34); AST 20 U/L (14-36); African American GFR (CKD) >90 (>60 ml/min/1.73 sqM); Albumin 4.2 g/dL (3.5-5.0); Alkaline Phosphatase 64 U/L (38-126); Amylase 55 U/L (30-110); Anion Gap 11 mmol/L; Blood Urea Nitrogen 11 mg/dL (7-17); Calcium 10.1 mg/dL (8.4-10.2); Carbon Dioxide 25 mmol/L (22-30); Chloride 101 mmol/L (98-107); Glucose 122 mg/dL (74-99); Lipase 108 U/L (23-300); Non-African American GFR(CKD) >90 (>60 ml/min/1.73 sqM); Potassium 3.7 mmol/L (3.5-5.1); Sodium 137 mmol/L (137-145); Total Bilirubin 0.9 mg/dL (0.2-1.3); Total Protein 6.7 g/dL (6.3-8.2)
[2024-12-01 20:22] LABS: Appearance,Urine Cloudy (Clear); Bacteria,Urine Rare /hpf; Bilirubin,Urine Negative (Negative); Blood,Urine Large (Negative); Budding Yeast,Urine Occasional /hpf; Color,Urine Light Red; Glucose,Urine (UA) Negative (Negative); Ketones,Urine Negative (Negative); Leukocyte Esterase,Urine Trace (Negative); Mucus,Urine Rare /hpf; Nitrite,Urine Negative (Negative); PH, Urine 6.5 (5.0-8.0); Protein,Urine Negative (Negative); RBC,Urine >182 /hpf (0-5); Specific Gravity,Urine 1.021 (1.001-1.035); Squamous Epithelial Cell,Urine 4 /hpf (0-4); Urobilinogen,Urine <2.0 mg/dL (<2.0); WBC,Urine 3 /hpf (0-5)
[2024-12-01 20:30] VITALS: BP 120/78; PULSE 79; RESP 16; TEMP 97.6
== END 2024-12-01 20:28 | disposition home or self-care (01) ==
LOC: EC 19:00
DX: R10.13 Epigastric pain (principal); F17.290 Nicotine dependence, other tobacco product, uncomplicated; Z88.0 Allergy status to penicillin; Z88.1 Allergy status to other antibiotic agents; Z88.2 Allergy status to sulfonamides; Z91.041 Radiographic dye allergy status; Z88.8 Allergy status to other drugs, medicaments and biological substances
CPT/HCPCS: 36415; 80053; 82150; 83690; 85025; 81001; 99284; 96374; 96375 ×2; 96361; J1200; J0780; J1171

== ENCOUNTER 2024-12-07 21:05 | Emergency (ER) | payer OTHER ==
[2024-12-07 21:12] VITALS: RESP 18
--- NOTE | 2024-12-07 21:50 | ED ---
Recheck HPI - General Chief Complaint: Abdominal Pain Stated Complaint: Kidney stones Time Seen by Provider: 12/07/24 21:07 Source: patient, RN notes reviewed, old records reviewed Mode of arrival: ambulatory Limitations: no limitations - History of Present Illness Initial Comments: This is a 49-year-old female to the ER for evaluation patient presents for evaluation of abdominal pain chronic abdominal pain with nausea vomiting unable to take medications at home severe abdominal pain with nausea vomiting chronic pain chronic renal colic -: days(s) Returns Today for: Called Because of Abnormal Lab/Test, persistent/worsening pain related to initial visit Symptoms Since Prior Visit: worsening pain Context: called for abnormal lab result Associated Symptoms: none Treatments Prior to Arrival: other - Related Data Home Medications Medication Instructions Recorded Confirmed oxyCODONE-APAP 10-325MG [Percocet 1 tab PO QID PRN 08/29/17 05/03/23 10-325 mg] PARoxetine HCL [Paxil] 40 mg PO DAILY 03/12/18 05/03/23 PARoxetine [Paxil] 20 mg PO DAILY 06/04/18 05/03/23 Loratadine 10 mg PO DAILY 04/21/20 05/03/23 Dextroamphetamine/Amphetamine 20 mg PO BID 12/07/21 05/03/23 [Dextroamp-Amphetamin 20 mg Tab] Multivitamins, Thera [Multivitamin 1 tab PO DAILY 12/07/21 05/03/23 (formulary)] SUMAtriptan succinate [Imitrex] 100 mg PO DAILY PRN 12/07/21 05/03/23 Atorvastatin [Lipitor] 40 mg PO DAILY 05/03/23 05/03/23 Cholecalciferol [Vitamin D3 (25 25 mcg PO DAILY 05/03/23 05/03/23 Mcg = 1000 Iu)] Cyanocobalamin (Vitamin B-12) 1,000 mcg PO DAILY 05/03/23 05/03/23 [Vitamin B-12] Tirzepatide [Mounjaro] 12.5 mg SQ WE 05/03/23 05/03/23 lisinopriL [Zestril] 10 mg PO DAILY 05/03/23 05/03/23 metFORMIN HCL 1,000 mg PO BID 05/03/23 05/03/23 Previous Rx's Medication Instructions Recorded Ondansetron Odt [Zofran Odt] 4 mg PO Q8HR PRN #20 tab 09/06/22 Cephalexin [Keflex] 500 mg PO Q6HR 7 Days #28 cap 09/27/23 Fluconazole 150 mg PO DIRECTED #2 tab 09/27/23 Tamsulosin [Flomax] 0.4 mg PO DAILY 14 Days #14 cap 11/26/23 Prochlorperazine [Compazine] 10 mg PO Q8H #14 tab 04/15/24 Ondansetron Odt [Zofran Odt] 4 mg PO Q8HR PRN #20 tab 05/26/24 Cephalexin [Keflex] 500 mg PO QID #40 cap 08/25/24 Ketorolac [Toradol] 10 mg PO Q8HR #15 tab 10/11/24 Tamsulosin [Flomax] 0.4 mg PO DAILY #7 cap 10/11/24 Fluconazole [Diflucan] 150 mg PO ONCE #2 tab 10/20/24 Nitrofurantoin Monohyd/M-Cryst 100 mg PO Q12HR #14 cap 10/20/24 [Macrobid] Allergies Allergy/AdvReac Type Severity Reaction Status Date / Time bupropion HCl Allergy Rash/Hives Verified 12/07/24 21:12 [From Wellbutrin] divalproex sodium Allergy Unknown Verified 12/07/24 21:12 [From Depakote] fentanyl Allergy Swelling Verified 12/07/24 21:12 Iodinated Contrast Media Allergy Anaphylaxis Verified 12/07/24 21:12 [Iodinated Contrast Media - IV Dye] Penicillins Allergy Rash/Hives/Gi Verified 12/07/24 21:12 Upset Sulfa (Sulfonamide Allergy Rash/Hives Verified 12/07/24 21:12 Antibiotics) sulfamethoxazole Allergy Rash/Hives Verified 12/07/24 21:12 [From Bactrim] trimethoprim [From Bactrim] Allergy Rash/Hives Verified 12/07/24 21:12 Review of Systems ROS Statement: Those systems with pertinent positive or pertinent negative responses have been documented in the HPI. ROS Other: All systems not noted in ROS Statement are negative. 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 History of Any Multi-Drug Resistant Organisms: ESBL Date of last positivie culture/infection: 05/14/17 MDRO Source:: ESBL URINE, Past Surgical History: Bladder Surgery, Section, Cholecystectomy, Hysterectomy, Orthopedic Surgery, Tubal Ligation Additional Past Surgical History / Comment(s): R ovarian cystectomy, laparoscopic surgery for L ovary that had attached to the bowel, D&C, numerous lithotripsies, nephroscopies, cystoscopies and stents to ureters-none in place at this time, L robotic pyeloplasty with post op infection around kidney which then required a picc line/later removed (pt states was not MRSA), L rotator cuff repair, L wrist tendon surgery, colonoscopy. Kidney stone removal. Past Anesthesia/Blood Transfusion Reactions: Family History of Problems w/ Anesthesia Additional Past Anesthesia/Blood Transfusion Reaction / Comment(s): dad-hard time waking up due to enzyme problems in liver Past Psychological History: ADD/ADHD, Anxiety, Bipolar, Depression, PTSD Smoking Status: Current every day smoker, Vaper Past Alcohol Use History: None Reported Past Drug Use History: Marijuana - Past Family History Brother(s) Family Medical History: Cancer Additional Family Medical History / Comment(s): testicular Father Family Medical History: Coronary Artery Disease (CAD), CVA/TIA, Diabetes Mellitus, Renal Disease Additional Family Medical History / Comment(s): GLAUCOMA,NEUROPATHY HAD TRIPLE CABG, at 56yrs from renal disease. Mother Family Medical History: Hyperlipidemia Additional Family Medical History / Comment(s): DDD, HAD 3 vessel CABG AGE 54. General Exam Limitations: no limitations General appearance: alert, in no apparent distress Head exam: Present: atraumatic, normocephalic, normal inspection Eye exam: Present: normal appearance, PERRL, EOMI. Absent: scleral icterus, conjunctival injection, periorbital swelling ENT exam: Present: normal exam, mucous membranes moist Neck exam: Present: normal inspection. Absent: tenderness, meningismus, lymphadenopathy Respiratory exam: Present: normal lung sounds bilaterally. Absent: respiratory distress, wheezes, rales, rhonchi, stridor Cardiovascular Exam: Present: regular rate, normal rhythm, normal heart sounds. Absent: systolic murmur, diastolic murmur, rubs, gallop, clicks GI/Abdominal exam: Present: soft, normal bowel sounds. Absent: distended, tenderness, guarding, rebound, rigid Extremities exam: Present: normal inspection, full ROM, normal capillary refill. Absent: tenderness, pedal edema, joint swelling, calf tenderness Back exam: Present: normal inspection Neurological exam: Present: alert, oriented X3, CN II-XII intact Psychiatric exam: Present: normal affect, normal mood Skin exam: Present: warm, dry, intact, normal color. Absent: rash Course Vital Signs 12/07/24 21:10 Temperature 97.6 F Pulse Rate 94 Respiratory 18 Rate Blood Pressure 142/84 O2 Sat by Pulse 100 Oximetry - Reevaluation(s) Reevaluation #1: 12/07/24 23:15 Medical records reviewed Reevaluation #2: 12/07/24 23:15 Patient informed of results and questions answered Reevaluation #3: 12/07/24 23:15 Patient's pain is controlled Reevaluation #4: Was pt. sent in by a medical professional or institution (, PA, [employer], urgent care, hospital, or alf...) When possible be specific @ -no Did you speak to anyone other than the patient for history (EMS, parent, family, police, friend...)? What history was obtained from this source @ -no Did you review nursing and triage notes (agree or disagree)? Why? @ -agree Are old charts reviewed (outside hosp., previous admission, EMS record, old EKG, old radiological studies, urgent care reports/EKG's, alf records)? R eport findings @ -yes Differential Diagnosis (chest pain, altered mental status, abdominal pain women, abdominal pain men, vaginal bleeding, weakness, fever, dyspnea, syncope, headache, dizziness, GI bleed, back pain, seizure, CVA, palpatations, mental health, musculoskeletal)? @ -prior EKG interpreted by me (3pts min.). @ -yes X-rays interpreted by me (1pt min.). @ -yes negative for acute disease CT interpreted by me (1pt min.). @ -no U/S interpreted by me (1pt. min.). @ -no What testing was considered but not performed or refused? (CT, X-rays, U/S, labs)? Why? @ -none What meds were considered but not given or refused? Why? @ -none Did you discuss the management of the patient with other professionals (professionals i.e. , PA, [employer], lab, RT, psych nurse, social economist, news wire photo operator, teacher, navy senior officer, case management director)? Give summary @ -no Was smoking cessation discussed for >3mins.? @ -no Was critical care preformed (if so, how long)? @ -no Were there social determinants of health that impacted care today? How? (Homelessness, low income, unemployed, alcoholism, drug addiction, transportation, low edu. Level, literacy, decrease access to med. care, correction, rehab)? @ -none Was there de-escalation of care discussed even if they declined (Discuss DNR or withdrawal of care, Hospice)? DNR status @ -no What co-morbidities impacted this encounter? (DM, HTN, Smoking, COPD, CAD, Cancer, CVA, ARF, Chemo, Hep., AIDS, mental health diagnosis, sleep apnea, morbid obesity)? @ -none Was patient admitted / discharged? Hospital course, mention meds given and route, prescriptions, significant lab abnormalities, going to OR and other pertinent info. @ - Undiagnosed new problem with uncertain prognosis? @ -no Drug Therapy requiring intensive monitoring for toxicity (Heparin, Nitro, Insulin, Cardizem)? @ -no Were any procedures done? @ -no Diagnosis/symptom? @ - Acute, or Chronic, or Acute on Chronic? @ -Acute Uncomplicated (without systemic symptoms) or Complicated (systemic symptoms)? @ -Complicated Side effects of treatment? @ -no Exacerbation, Progression, or Severe Exacerbation? @ -exacerbation Poses a threat to life or bodily function? How? (Chest pain, USA, PR, pneumonia, PE, COPD, DKA, ARF, appy, cholecystitis, CVA, Diverticulitis, Homicidal, Suicidal, threat to staff... and all critical care pts) @ -yes Reevaluation #5: 12/07/24 23:15 Differential Abdominal Pain Women: Appendicitis, Cholecystitis, diverticulosis, ischemic bowel, pancreatitis, hepatitis, UTI, gastroenteritis, AAA, incarcerated hernia, bowel obstruction, constipation, inflammatory bowel, hepatitis, peptic ulcer disease, splenic infarction, perforated viscus, vulvitis, ovarian torsion, PID, kidney stone, placenta abruption, this is not meant to be an all-inclusive list Medical Decision Making - Medical Decision Making 49 female to ER for evaluation of acute on chronic abdominal pain renal colic patient pain is controlled patient can be discharged home - Lab Data Result diagrams: 12/07/24 22:08 12/07/24 22:08 Lab Results 12/07/24 12/07/24 Range/Units 22:08 22:08 WBC 8.80 (4.50-10.00) 10*3/uL RBC 4.13 (4.10-5.20) 10*6/uL Hgb 12.7 (12.0-15.0) g/dL Hct 35.9 L (37.2-46.3) % MCV 86.9 (80.0-97.0) fL MCH 30.8 (27.0-32.0) pg MCHC 35.4 (32.0-37.0) g/dL Plt Count 258 (140-440) 10*3/uL MPV 9.4 L (9.5-12.2) fL Immature Gran % (Auto) 0.2 % Immature Gran # 0.02 (0.00-0.04) 10*3/uL Sodium 139 (137-145) mmol/L Potassium 3.8 (3.5-5.1) mmol/L Chloride 105 (98-107) mmol/L Carbon Dioxide 23 (22-30) mmol/L Anion Gap 11 mmol/L BUN 12 (7-17) mg/dL Creatinine 0.87 (0.52-1.04) mg/dL Est GFR (CKD-EPI)AfAm >90 (>60 ml/min/1.73 sqM) Est GFR (CKD-EPI)NonAf 79 (>60 ml/min/1.73 sqM) Glucose 112 H (74-99) mg/dL Calcium 9.8 (8.4-10.2) mg/dL Total Bilirubin 0.6 (0.2-1.3) mg/dL AST 21 (14-36) U/L ALT 15 (4-34) U/L Alkaline Phosphatase 71 (38-126) U/L Total Protein 6.6 (6.3-8.2) g/dL Albumin 4.1 (3.5-5.0) g/dL Amylase 46 (30-110) U/L Lipase 78 (23-300) U/L Disposition Clinical Impression: Left flank pain, Left flank pain, chronic, Abdominal pain Disposition: HOME SELF-CARE Condition: Good Instructions (If sedation given, give patient instructions): Abdominal Pain (ED) Is patient prescribed a controlled substance at d/c from ED?: No Referrals: Rajiv Sexton MD [Primary Care Provider] - 1-2 days Time of Disposition: 23:00
[2024-12-07] MEDS: SODIUM CHLORIDE 0.9% 1,000 ML IV ONE (22:17)
[2024-12-07] MEDS: diphenhydrAMINE 50 MG/ML 1 ML VIAL IVP STA (22:17)
[2024-12-07] MEDS: ONDANSETRON 4 MG/2 ML VIAL IVP STA (22:18)
[2024-12-07] MEDS: HYDROmorphone 1 MG/ML 1 ML SYRINGE IVP STA (22:18)
[2024-12-07 22:37] LABS: Basophils # (A) 0.05 10*3/uL (0.00-0.10); Basophils % (A) 0.6 %; Eosinophils # (A) 0.18 10*3/uL (0.04-0.35); HCT 35.9 % (37.2-46.3); HGB 12.7 g/dL (12.0-15.0); Lymphocytes % (A) 45.5 %; MCH 30.8 pg (27.0-32.0); MCHC 35.4 g/dL (32.0-37.0); MCV 86.9 fL (80.0-97.0); Mean Platelet Volume 9.4 fL (9.5-12.2); Monocytes # (A) 0.52 10*3/uL (0.20-1.00); Monocytes % (A) 5.9 %; Neutrophils # (A) 4.03 10*3/uL (1.80-7.70); Neutrophils % (A) 45.8 %; Platelet Count 258 10*3/uL (140-440); RBC 4.13 10*6/uL (4.10-5.20); RDW 12.1 % (11.5-14.5)
[2024-12-07 22:55] LABS: ALT 15 U/L (4-34); AST 21 U/L (14-36); African American GFR (CKD) >90 (>60 ml/min/1.73 sqM); Albumin 4.1 g/dL (3.5-5.0); Alkaline Phosphatase 71 U/L (38-126); Amylase 46 U/L (30-110); Anion Gap 11 mmol/L; Blood Urea Nitrogen 12 mg/dL (7-17); Calcium 9.8 mg/dL (8.4-10.2); Carbon Dioxide 23 mmol/L (22-30); Chloride 105 mmol/L (98-107); Glucose 112 mg/dL (74-99); Lipase 78 U/L (23-300); Non-African American GFR(CKD) 79 (>60 ml/min/1.73 sqM); Potassium 3.8 mmol/L (3.5-5.1); Sodium 139 mmol/L (137-145); Total Bilirubin 0.6 mg/dL (0.2-1.3); Total Protein 6.6 g/dL (6.3-8.2)
[2024-12-07 23:25] LABS: Appearance,Urine Cloudy (Clear); Bilirubin,Urine Negative (Negative); Blood,Urine Large (Negative); Calcium Oxalate Crystals,Urine Few /hpf; Color,Urine Light Red; Glucose,Urine (UA) Negative (Negative); Ketones,Urine Negative (Negative); Leukocyte Esterase,Urine Trace (Negative); Mucus,Urine Occasional /hpf; Nitrite,Urine Negative (Negative); Protein,Urine Trace (Negative); RBC,Urine >182 /hpf (0-5); Specific Gravity,Urine 1.023 (1.001-1.035); Squamous Epithelial Cell,Urine 3 /hpf (0-4); Urobilinogen,Urine <2.0 mg/dL (<2.0); WBC,Urine 16 /hpf (0-5)
[2024-12-08 00:13] VITALS: BP 130/92; PULSE 88; TEMP 98.6
[2024-12-08 03:15] LABS: RBC Morphology Normal
== END 2024-12-08 00:12 | disposition home or self-care (01) ==
LOC: EC 21:05
DX: G89.29 Other chronic pain (principal); R10.32 Left lower quadrant pain; F17.290 Nicotine dependence, other tobacco product, uncomplicated; Z88.2 Allergy status to sulfonamides; Z88.1 Allergy status to other antibiotic agents; Z88.8 Allergy status to other drugs, medicaments and biological substances; Z88.0 Allergy status to penicillin
CPT/HCPCS: 36415; 80053; 82150; 83690; 85025; 81001; 99284; 96374; 96375 ×2; 96361; J1200; J2405; J1171

== ENCOUNTER 2024-12-10 20:32 | Emergency (ER) | payer OTHER ==
[2024-12-10 20:36] VITALS: RESP 16
[2024-12-10] MEDS: PROCHLORPERAZINE INJ 10 MG/2 ML VIAL IM STA (21:51)
[2024-12-10] MEDS: HYDROmorphone 1 MG/ML 1 ML SYRINGE IM STA (21:51)
[2024-12-10 22:12] LABS: Appearance,Urine Cloudy (Clear); Bacteria,Urine Rare /hpf; Bilirubin,Urine Negative (Negative); Blood,Urine Large (Negative); Color,Urine Light Red; Glucose,Urine (UA) Negative (Negative); Ketones,Urine Negative (Negative); Leukocyte Esterase,Urine Trace (Negative); Mucus,Urine Rare /hpf; Nitrite,Urine Negative (Negative); Protein,Urine Trace (Negative); RBC,Urine >182 /hpf (0-5); Specific Gravity,Urine 1.028 (1.001-1.035); Squamous Epithelial Cell,Urine 3 /hpf (0-4); WBC,Urine 18 /hpf (0-5)
--- NOTE | 2024-12-10 22:24 | ED ---
Abdominal Pain HPI - General Chief Complaint: Abdominal Pain Stated Complaint: Kidney Stone Time Seen by Provider: 12/10/24 20:41 Source: patient, RN notes reviewed Mode of arrival: ambulatory Limitations: no limitations - History of Present Illness Initial Comments: 49-year-old female presents emergency department with chief complaint of nausea vomiting flank pain. Patient has recurrent stones she had a stone removed at [facility] on 1 month ago. Patient states that she has 2 more stones that they agreed on attempt to remove next week. Patient denies any fevers chills no dysuria no other complaints - Related Data Home Medications Medication Instructions Recorded Confirmed oxyCODONE-APAP 10-325MG [Percocet 1 tab PO QID PRN 08/29/17 05/03/23 10-325 mg] PARoxetine HCL [Paxil] 40 mg PO DAILY 03/12/18 05/03/23 PARoxetine [Paxil] 20 mg PO DAILY 06/04/18 05/03/23 Loratadine 10 mg PO DAILY 04/21/20 05/03/23 Dextroamphetamine/Amphetamine 20 mg PO BID 12/07/21 05/03/23 [Dextroamp-Amphetamin 20 mg Tab] Multivitamins, Thera [Multivitamin 1 tab PO DAILY 12/07/21 05/03/23 (formulary)] SUMAtriptan succinate [Imitrex] 100 mg PO DAILY PRN 12/07/21 05/03/23 Atorvastatin [Lipitor] 40 mg PO DAILY 05/03/23 05/03/23 Cholecalciferol [Vitamin D3 (25 25 mcg PO DAILY 05/03/23 05/03/23 Mcg = 1000 Iu)] Cyanocobalamin (Vitamin B-12) 1,000 mcg PO DAILY 05/03/23 05/03/23 [Vitamin B-12] Tirzepatide [Mounjaro] 12.5 mg SQ WE 05/03/23 05/03/23 lisinopriL [Zestril] 10 mg PO DAILY 05/03/23 05/03/23 metFORMIN HCL 1,000 mg PO BID 05/03/23 05/03/23 Previous Rx's Medication Instructions Recorded Ondansetron Odt [Zofran Odt] 4 mg PO Q8HR PRN #20 tab 09/06/22 Cephalexin [Keflex] 500 mg PO Q6HR 7 Days #28 cap 04/04/24 Fluconazole 150 mg PO DIRECTED #2 tab 09/27/23 Tamsulosin [Flomax] 0.4 mg PO DAILY 14 Days #14 cap 11/26/23 Prochlorperazine [Compazine] 10 mg PO Q8H #14 tab 04/15/24 Ondansetron Odt [Zofran Odt] 4 mg PO Q8HR PRN #20 tab 05/26/24 Cephalexin [Keflex] 500 mg PO QID #40 cap 08/25/24 Ketorolac [Toradol] 10 mg PO Q8HR #15 tab 10/11/24 Tamsulosin [Flomax] 0.4 mg PO DAILY #7 cap 10/11/24 Fluconazole [Diflucan] 150 mg PO ONCE #2 tab 10/20/24 Nitrofurantoin Monohyd/M-Cryst 100 mg PO Q12HR #14 cap 10/20/24 [Macrobid] Allergies Allergy/AdvReac Type Severity Reaction Status Date / Time bupropion HCl Allergy Rash/Hives Verified 12/10/24 20:36 [From Wellbutrin] divalproex sodium Allergy Unknown Verified 12/10/24 20:36 [From Depakote] fentanyl Allergy Swelling Verified 12/10/24 20:36 Iodinated Contrast Media Allergy Anaphylaxis Verified 12/10/24 20:36 [Iodinated Contrast Media - IV Dye] Penicillins Allergy Rash/Hives/Gi Verified 12/10/24 20:36 Upset Sulfa (Sulfonamide Allergy Rash/Hives Verified 12/10/24 20:36 Antibiotics) sulfamethoxazole Allergy Rash/Hives Verified 12/10/24 20:36 [From Bactrim] trimethoprim [From Bactrim] Allergy Rash/Hives Verified 12/10/24 20:36 Review of Systems ROS Statement: Those systems with pertinent positive or pertinent negative responses have been documented in the HPI. ROS Other: All systems not noted in ROS Statement are negative. 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 History of Any Multi-Drug Resistant Organisms: ESBL Date of last positivie culture/infection: 05/14/17 MDRO Source:: ESBL URINE, Past Surgical History: Bladder Surgery, Section, Cholecystectomy, Hysterectomy, Orthopedic Surgery, Tubal Ligation Additional Past Surgical History / Comment(s): R ovarian cystectomy, laparoscopic surgery for L ovary that had attached to the bowel, D&C, numerous lithotripsies, nephroscopies, cystoscopies and stents to ureters-none in place at this time, L robotic pyeloplasty with post op infection around kidney which then required a picc line/later removed (pt states was not MRSA), L rotator cuff repair, L wrist tendon surgery, colonoscopy. Kidney stone removal. Past Anesthesia/Blood Transfusion Reactions: Family History of Problems w/ Anesthesia Additional Past Anesthesia/Blood Transfusion Reaction / Comment(s): dad-hard time waking up due to enzyme problems in liver Past Psychological History: ADD/ADHD, Anxiety, Bipolar, Depression, PTSD Smoking Status: Current every day smoker, Vaper Past Alcohol Use History: None Reported Past Drug Use History: Marijuana - Past Family History Brother(s) Family Medical History: Cancer Additional Family Medical History / Comment(s): testicular Father Family Medical History: Coronary Artery Disease (CAD), CVA/TIA, Diabetes Mellitus, Renal Disease Additional Family Medical History / Comment(s): GLAUCOMA,NEUROPATHY HAD TRIPLE CABG, at 56yrs from renal disease. Mother Family Medical History: Hyperlipidemia Additional Family Medical History / Comment(s): DDD, HAD 3 vessel CABG AGE 54. General Exam Limitations: no limitations General appearance: alert, in no apparent distress Head exam: Present: atraumatic, normocephalic, normal inspection Eye exam: Present: normal appearance, PERRL, EOMI. Absent: scleral icterus, conjunctival injection, periorbital swelling Respiratory exam: Present: normal lung sounds bilaterally. Absent: respiratory distress, wheezes, rales, rhonchi, stridor Cardiovascular Exam: Present: regular rate, normal rhythm, normal heart sounds. Absent: systolic murmur, diastolic murmur, rubs, gallop, clicks GI/Abdominal exam: Present: soft, normal bowel sounds. Absent: distended, tenderness, guarding, rebound, rigid Course Vital Signs 12/10/24 20:34 Temperature 97.9 F Pulse Rate 86 Respiratory 16 Rate Blood Pressure 147/93 O2 Sat by Pulse 98 Oximetry Medical Decision Making - Medical Decision Making Was pt. sent in by a medical professional or institution (, STUART, [employer]AR H[employer] WATER INSTALLER, urgent care, hospital, or care home...) When possible be specific @ -No Did you speak to anyone other than the patient for history (EMS, parent, family, police, friend...)? What history was obtained from this source @ -No Did you review nursing and triage notes (agree or disagree)? Why? @ -I reviewed and agree with nursing and triage notes Were old charts reviewed (outside hosp., previous admission, EMS record, old EKG, old radiological studies, urgent care reports/EKG's, care home records)? Report findings @ -No old charts were reviewed Differential Diagnosis (chest pain, altered mental status, abdominal pain women, abdominal pain men, vaginal bleeding, weakness, fever, dyspnea, syncope, headache, dizziness, GI bleed, back pain, seizure, CVA, palpatations, mental health, musculoskeletal)? @ -Differential Abdominal Pain Women: Appendicitis, Cholecystitis, diverticulosis, ischemic bowel, pancreatitis, hepatitis, UTI, gastroenteritis, AAA, incarcerated hernia, bowel obstruction, constipation, inflammatory bowel, hepatitis, peptic ulcer disease, splenic infarction, perforated viscus, vulvitis, ovarian torsion, PID, kidney stone, placenta abruption, this is not meant to be an all-inclusive list EKG interpreted by me (3pts min.). @ -None X-rays interpreted by me (1pt min.). @ -None done CT interpreted by me (1pt min.). @ -None done U/S interpreted by me (1pt. min.). @ -None done What testing was considered but not performed or refused? (CT, X-rays, U/S, labs)? Why? @ -None What meds were considered but not given or refused? Why? @ -None Did you discuss the management of the patient with other professionals (professionals i.e. STUART Yeager, SOLAR H[employer] WATER INSTALLER, lab, RT, psych nurse, social science manager, german professor, teacher, environmental health officer, major case detective)? Give summary @ -No Was smoking cessation discussed for >3mins.? @ -No Was critical care preformed (if so, how long)? @ -No Were there social determinants of health that impacted care today? How? (Homel essness, low income, unemployed, alcoholism, drug addiction, transportation, low edu. Level, literacy, decrease access to med. care, snf, rehab)? @ -No Was there de-escalation of care discussed even if they declined (Discuss DNR or withdrawal of care, Hospice)? DNR status @ -No What co-morbidities impacted this encounter? (DM, HTN, Smoking, COPD, CAD, Cancer, CVA, ARF, Chemo, Hep., AIDS, mental health diagnosis, sleep apnea, morbid obesity)? @ -None Was patient admitted / discharged? Hospital course, mention meds given and route, prescriptions, significant lab abnormalities, going to OR and other pertinent info. @ -Discharge patient is at no any evidence of UTI she does have hematuria which is more chronic she did have a urology procedure November 06 at [facility] on and prior CT showed 2 more stones. Undiagnosed new problem with uncertain prognosis? @ -No Drug Therapy requiring intensive monitoring for toxicity (Heparin, Nitro, Insulin, Cardizem)? @ -No Were any procedures done? @ -No Diagnosis/symptom? @ -Kidney stone Acute, or Chronic, or Acute on Chronic? @ -Acute Uncomplicated (without systemic symptoms) or Complicated (systemic symptoms)? @ -Complicated Side effects of treatment? @ -No Exacerbation, Progression, or Severe Exacerbation? @ -No Poses a threat to life or bodily function? How? (Chest pain, USA, PA, pneumonia, PE, COPD, DKA, ARF, appy, cholecystitis, CVA, Diverticulitis, Homicidal, Suicidal, threat to staff... and all critical care pts) @ -No - Lab Data Lab Results 12/10/24 Range/Units 20:58 Urine Color Light Red Urine Appearance Cloudy H (Clear) Urine pH 6.0 (5.0-8.0) Ur Specific [place] 1.028 (1.001-1.035) Urine Protein Trace H (Negative) Urine Glucose (UA) Negative (Negative) Urine Ketones Negative (Negative) Urine Blood Large H (Negative) Urine Nitrite Negative (Negative) Urine Bilirubin Negative (Negative) Urine Urobilinogen 2.0 (<2.0) mg/dL Ur Leukocyte Esterase Trace H (Negative) Urine RBC >182 H (0-5) /hpf Urine WBC 18 H (0-5) /hpf Ur Squamous Epith Cells 3 (0-4) /hpf Urine Bacteria Rare H (None) /hpf Urine Mucus Rare H (None) /hpf Disposition Clinical Impression: Hematuria, Kidney stones Disposition: HOME SELF-CARE Condition: Stable Additional Instructions: Please return to the Emergency Department if symptoms worsen or any other concerns. Is patient prescribed a controlled substance at d/c from ED?: No Referrals: Rajiv Sexton MD [Primary Care Provider] - 1-2 days Time of Disposition: 22:25
[2024-12-10 22:46] VITALS: BP 136/89; PULSE 79; TEMP 98.1
== END 2024-12-10 22:46 | disposition home or self-care (01) ==
LOC: EC 20:32
DX: N20.0 Calculus of kidney (principal); R31.9 Hematuria, unspecified; F17.290 Nicotine dependence, other tobacco product, uncomplicated; Z91.041 Radiographic dye allergy status; Z88.2 Allergy status to sulfonamides; Z88.0 Allergy status to penicillin; Z88.8 Allergy status to other drugs, medicaments and biological substances; Z88.1 Allergy status to other antibiotic agents
CPT/HCPCS: 81001; 87086; 99284; 96372 ×2; J0780; J1171

== ENCOUNTER 2024-12-28 15:01 | Emergency (ER) | payer OTHER ==
[2024-12-28] MEDS: KETOROLAC 15 MG/ML 1 ML VIAL IVP STA (15:50)
[2024-12-28] MEDS: ONDANSETRON 4 MG/2 ML VIAL IVP STA (15:50)
[2024-12-28] MEDS: HYDROmorphone 1 MG/ML 1 ML SYRINGE IVP STA (15:51)
[2024-12-28] MEDS: SODIUM CHLORIDE 0.9% 1,000 ML IV STA (15:52)
[2024-12-28 15:57] LABS: Basophils # (A) 0.06 10*3/uL (0.00-0.10); Basophils % (A) 0.6 %; Eosinophils # (A) 0.17 10*3/uL (0.04-0.35); Eosinophils % (A) 1.8 %; HCT 40.9 % (37.2-46.3); HGB 14.3 g/dL (12.0-15.0); Lymphocytes # (A) 3.38 10*3/uL (0.90-5.00); Lymphocytes % (A) 36.5 %; MCH 30.4 pg (27.0-32.0); MCHC 35.0 g/dL (32.0-37.0); MCV 86.8 fL (80.0-97.0); Monocytes # (A) 0.64 10*3/uL (0.20-1.00); Monocytes % (A) 6.9 %; Neutrophils # (A) 4.98 10*3/uL (1.80-7.70); Neutrophils % (A) 54.0 %; Platelet Count 283 10*3/uL (140-440); RBC 4.71 10*6/uL (4.10-5.20); RDW 11.9 % (11.5-14.5); WBC 9.25 10*3/uL (4.50-10.00)
[2024-12-28 16:09] LABS: Bilirubin,Urine Negative (Negative); Blood,Urine Large (Negative); Color,Urine Light Red; Glucose,Urine (UA) Negative (Negative); Ketones,Urine Negative (Negative); Leukocyte Esterase,Urine Trace (Negative); Nitrite,Urine Negative (Negative); PH, Urine 5.0 (5.0-8.0); Protein,Urine Trace (Negative); RBC,Urine >182 /hpf (0-5); Specific Gravity,Urine 1.025 (1.001-1.035); Squamous Epithelial Cell,Urine 1 /hpf (0-4); Urobilinogen,Urine <2.0 mg/dL (<2.0); WBC,Urine 45 /hpf (0-5)
--- NOTE | 2024-12-28 16:09 | ED ---
Abdominal Pain HPI - General Chief Complaint: Abdominal Pain Stated Complaint: Kidney stones, pain in joints Time Seen by Provider: 12/28/24 16:03 Source: patient, RN notes reviewed Mode of arrival: ambulatory Limitations: no limitations - History of Present Illness Initial Comments: 49-year-old female with history of recurrent kidney stones presenting for right flank pain x 3 days with nausea and vomiting. States she has several known 3 to 4 mm right-sided kidney stones that she is following with a urologist for. States she has chronic hematuria and intermittent flank pain due to the kidney stones. Denies fevers. She does have a follow-up with her PCP in 2 days and her urologist in 4 days. - Related Data Home Medications Medication Instructions Recorded Confirmed oxyCODONE-APAP 10-325MG [Percocet 1 tab PO QID PRN 08/29/17 05/03/23 10-325 mg] PARoxetine HCL [Paxil] 40 mg PO DAILY 03/12/18 05/03/23 PARoxetine [Paxil] 20 mg PO DAILY 06/04/18 05/03/23 Loratadine 10 mg PO DAILY 04/21/20 05/03/23 Dextroamphetamine/Amphetamine 20 mg PO BID 12/07/21 05/03/23 [Dextroamp-Amphetamin 20 mg Tab] Multivitamins, Thera [Multivitamin 1 tab PO DAILY 12/07/21 05/03/23 (formulary)] SUMAtriptan succinate [Imitrex] 100 mg PO DAILY PRN 12/07/21 05/03/23 Atorvastatin [Lipitor] 40 mg PO DAILY 05/03/23 05/03/23 Cholecalciferol [Vitamin D3 (25 25 mcg PO DAILY 05/03/23 05/03/23 Mcg = 1000 Iu)] Cyanocobalamin (Vitamin B-12) 1,000 mcg PO DAILY 05/03/23 05/03/23 [Vitamin B-12] Tirzepatide [Mounjaro] 12.5 mg SQ WE 05/03/23 05/03/23 lisinopriL [Zestril] 10 mg PO DAILY 05/03/23 05/03/23 metFORMIN HCL 1,000 mg PO BID 05/03/23 05/03/23 Previous Rx's Medication Instructions Recorded Ondansetron Odt [Zofran Odt] 4 mg PO Q8HR PRN #20 tab 09/06/22 Cephalexin [Keflex] 500 mg PO Q6HR 7 Days #28 cap 09/27/23 Fluconazole 150 mg PO DIRECTED #2 tab 09/27/23 Tamsulosin [Flomax] 0.4 mg PO DAILY 14 Days #14 cap 11/26/23 Prochlorperazine [Compazine] 10 mg PO Q8H #14 tab 04/15/24 Ondansetron Odt [Zofran Odt] 4 mg PO Q8HR PRN #20 tab 05/26/24 Cephalexin [Keflex] 500 mg PO QID #40 cap 08/25/24 Ketorolac [Toradol] 10 mg PO Q8HR #15 tab 10/11/24 Tamsulosin [Flomax] 0.4 mg PO DAILY #7 cap 10/11/24 Fluconazole [Diflucan] 150 mg PO ONCE #2 tab 10/20/24 Nitrofurantoin Monohyd/M-Cryst 100 mg PO Q12HR #14 cap 10/20/24 [Macrobid] Allergies Allergy/AdvReac Type Severity Reaction Status Date / Time bupropion HCl Allergy Rash/Hives Verified 12/28/24 15:04 [From Wellbutrin] divalproex sodium Allergy Unknown Verified 12/28/24 15:04 [From Depakote] fentanyl Allergy Swelling Verified 12/28/24 15:04 Iodinated Contrast Media Allergy Anaphylaxis Verified 12/28/24 15:04 [Iodinated Contrast Media - IV Dye] Penicillins Allergy Rash/Hives/Gi Verified 12/28/24 15:04 Upset Sulfa (Sulfonamide Allergy Rash/Hives Verified 12/28/24 15:04 Antibiotics) sulfamethoxazole Allergy Rash/Hives Verified 12/28/24 15:04 [From Bactrim] trimethoprim [From Bactrim] Allergy Rash/Hives Verified 12/28/24 15:04 Review of Systems ROS Statement: Those systems with pertinent positive or pertinent negative responses have been documented in the HPI. ROS Other: All systems not noted in ROS Statement are negative. 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 History of Any Multi-Drug Resistant Organisms: C-DIFF, ESBL Date of last positivie culture/infection: 05/14/17 MDRO Source:: ESBL URINE, Past Surgical History: Bladder Surgery, Section, Cholecystectomy, Hysterectomy, Orthopedic Surgery, Tubal Ligation Additional Past Surgical History / Comment(s): R ovarian cystectomy, laparoscopic surgery for L ovary that had attached to the bowel, D&C, numerous lithotripsies, nephroscopies, cystoscopies and stents to ureters-none in place at this time, L robotic pyeloplasty with post op infection around kidney which then required a picc line/later removed (pt states was not MRSA), L rotator cuff repair, L wrist tendon surgery, colonoscopy. Kidney stone removal. Past Anesthesia/Blood Transfusion Reactions: Family History of Problems w/ Anes thesia Additional Past Anesthesia/Blood Transfusion Reaction / Comment(s): dad-hard time waking up due to enzyme problems in liver Past Psychological History: ADD/ADHD, Anxiety, Bipolar, Depression, PTSD Smoking Status: Current every day smoker, Vaper Past Alcohol Use History: None Reported Past Drug Use History: Marijuana - Past Family History Brother(s) Family Medical History: Cancer Additional Family Medical History / Comment(s): testicular Father Family Medical History: Coronary Artery Disease (CAD), CVA/TIA, Diabetes Mellitus, Renal Disease Additional Family Medical History / Comment(s): GLAUCOMA,NEUROPATHY HAD TRIPLE CABG, at 56yrs from renal disease. Mother Family Medical History: Hyperlipidemia Additional Family Medical History / Comment(s): DDD, HAD 3 vessel CABG AGE 54. General Exam Limitations: no limitations General appearance: alert, in no apparent distress Head exam: Present: atraumatic, normocephalic, normal inspection Eye exam: Present: normal appearance, PERRL, EOMI. Absent: scleral icterus, conjunctival injection, periorbital swelling Respiratory exam: Present: normal lung sounds bilaterally. Absent: respiratory distress, wheezes, rales, rhonchi, stridor Cardiovascular Exam: Present: regular rate, normal rhythm, normal heart sounds. Absent: systolic murmur, diastolic murmur, rubs, gallop, clicks GI/Abdominal exam: Present: soft, normal bowel sounds. Absent: distended, tenderness, guarding, rebound, rigid Back exam: Absent: CVA tenderness (R), CVA tenderness (L) Neurological exam: Present: alert, oriented X3 Psychiatric exam: Present: normal affect, normal mood Skin exam: Present: warm, dry, intact, normal color. Absent: rash Course Vital Signs 12/28/24 15:02 Temperature 97.9 F Pulse Rate 102 H Respiratory 20 Rate Blood Pressure 144/89 O2 Sat by Pulse 99 Oximetry Medical Decision Making - Medical Decision Making Was pt. sent in by a medical professional or institution (, PA, BRAND DEVELOPMENT MANAGER, urgent care, hospital, or usp...) When possible be specific @ -No Did you speak to anyone other than the patient for history (EMS, parent, family, police, friend...)? What history was obtained from this source @ -No Did you review nursing and triage notes (agree or disagree)? Why? @ -I reviewed and agree with nursing and triage notes Were old charts reviewed (outside hosp., previous admission, EMS record, old EKG, old radiological studies, urgent care reports/EKG's, usp records)? Report findings @ -No old charts were reviewed Differential Diagnosis (chest pain, altered mental status, abdominal pain women, abdominal pain men, vaginal bleeding, weakness, fever, dyspnea, syncope, headache, dizziness, GI bleed, back pain, seizure, CVA, palpatations, mental health, musculoskeletal)? @ -Differential Abdominal Pain Women: Appendicitis, Cholecystitis, diverticulosis, ischemic bowel, pancreatitis, hepatitis, UTI, gastroenteritis, AAA, incarcerated hernia, bowel obstruction, constipation, inflammatory bowel, hepatitis, peptic ulcer disease, splenic infarction, perforated viscus, vulvitis, ovarian torsion, PID, kidney stone, placenta abruption, this is not meant to be an all-inclusive list EKG interpreted by me (3pts min.). @ -None X-rays interpreted by me (1pt min.). @ -None done CT interpreted by me (1pt min.). @ -None done U/S interpreted by me (1pt. min.). @ -None done What testing was considered but not performed or refused? (CT, X-rays, U/S, labs)? Why? @ -None What meds were considered but not given or refused? Why? @ -None Did you discuss the management of the patient with other professionals (professionals i.e. , PA, BRAND DEVELOPMENT MANAGER, lab, RT, psych nurse, clinical social work aide, general cargo clerk, teacher, contracting officer, case finisher)? Give summary @ -No Was smoking cessation discussed for >3mins.? @ -No Was critical care preformed (if so, how long)? @ -No Were there social determinants of health that impacted care today? How? (Homelessness, low income, unemployed, alcoholism, drug addiction, tra nsportation, low edu. Level, literacy, decrease access to med. care, penitentiary, rehab)? @ -No Was there de-escalation of care discussed even if they declined (Discuss DNR or withdrawal of care, Hospice)? DNR status @ -No What co-morbidities impacted this encounter? (DM, HTN, Smoking, COPD, CAD, Cancer, CVA, ARF, Chemo, Hep., AIDS, mental health diagnosis, sleep apnea, morbid obesity)? @ -None Was patient admitted / discharged? Hospital course, mention meds given and route, prescriptions, significant lab abnormalities, going to OR and other pertinent info. @ -Discharge. 49-year-old female with history of chronic flank pain secondary to kidney stones presenting for right flank pain x 3 days. Patient is afebrile with no CVA tenderness. Provided with IV fluids, antiemetics, and analgesics. Lab work unremarkable. Urinalysis hemorrhagic however this is chronic due to recurrent kidney stones. Upon reevaluation, patient reports improvement of symptoms. Patient is tolerating orals. Can be safely discharged home with close follow-up for PCP appointment on Sunday and urologist appointment on . Appropriate return precautions discussed. Case was discussed with my ED attending Dr. Arauz. Undiagnosed new problem with uncertain prognosis? @ -No Drug Therapy requiring intensive monitoring for toxicity (Heparin, Nitro, Insulin, Cardizem)? @ -No Were any procedures done? @ -No Diagnosis/symptom? @ -Right flank pain Acute, or Chronic, or Acute on Chronic? @ -Acute Uncomplicated (without systemic symptoms) or Complicated (systemic symptoms)? @ -Uncomplicated Side effects of treatment? @ -No Exacerbation, Progression, or Severe Exacerbation? @ -No Poses a threat to life or bodily function? How? (Chest pain, USA, CT, pneumonia, PE, COPD, DKA, ARF, appy, cholecystitis, CVA, Diverticulitis, Homicidal, Suicidal, threat to staff... and all critical care pts) @ -Unlikely at this time - Lab Data Result diagrams: 12/28/24 15:44 12/28/24 15:44 Lab Results 12/28/24 12/28/24 12/28/24 Range/Units 15:44 15:44 15:44 WBC 9.25 (4.50-10.00) 10*3/uL RBC 4.71 (4.10-5.20) 10*6/uL Hgb 14.3 (12.0-15.0) g/dL Hct 40.9 (37.2-46.3) % MCV 86.8 (80.0-97.0) fL MCH 30.4 (27.0-32.0) pg MCHC 35.0 (32.0-37.0) g/dL Plt Count 283 (140-440) 10*3/uL MPV 9.6 (9.5-12.2) fL Immature Gran % (Auto) 0.2 % Neutrophils % 54.0 % Lymphocytes % 36.5 % Monocytes % 6.9 % Eosinophils % 1.8 % Basophils % 0.6 % Immature Gran # 0.02 (0.00-0.04) 10*3/uL Neutrophils # 4.98 (1.80-7.70) 10*3/uL Lymphocytes # 3.38 (0.90-5.00) 10*3/uL Monocytes # 0.64 (0.20-1.00) 10*3/uL Eosinophils # 0.17 (0.04-0.35) 10*3/uL Basophils # 0.06 (0.00-0.10) 10*3/uL Sodium 141 (137-145) mmol/L Potassium 4.0 (3.5-5.1) mmol/L Chloride 105 (98-107) mmol/L Carbon Dioxide 20 L (22-30) mmol/L Anion Gap 16 mmol/L BUN 18 H (7-17) mg/dL Creatinine 0.65 (0.52-1.04) mg/dL Est GFR (CKD-EPI)AfAm >90 (>60 ml/min/1.73 sqM) Est GFR (CKD-EPI)NonAf >90 (>60 ml/min/1.73 sqM) Glucose 128 H (74-99) mg/dL Plasma Lactic Acid Brant (0.7-2.0) mmol/L Calcium 10.2 (8.4-10.2) mg/dL Total Bilirubin 1.3 (0.2-1.3) mg/dL AST 28 (14-36) U/L ALT 20 (4-34) U/L Alkaline Phosphatase 74 (38-126) U/L Total Protein 7.5 (6.3-8.2) g/dL Albumin 4.7 (3.5-5.0) g/dL Urine Color Light Red Urine Appearance Cloudy H (Clear) Urine pH 5.0 (5.0-8.0) Ur Specific [place] 1.025 (1.001-1.035) Urine Protein Trace H (Negative) Urine Glucose (UA) Negative (Negative) Urine Ketones Negative (Negative) Urine Blood Large H (Negative) Urine Nitrite Negative (Negative) Urine Bilirubin Negative (Negative) Urine Urobilinogen <2.0 (<2.0) mg/dL Ur Leukocyte Esterase Trace H (Negative) Urine RBC >182 H (0-5) /hpf Urine WBC 45 H (0-5) /hpf Ur Squamous Epith Cells 1 (0-4) /hpf 12/28/24 Range/Units 15:44 WBC (4.50-10.00) 10*3/uL RBC (4.10-5.20) 10*6/uL Hgb (12.0-15.0) g/dL Hct (37.2-46.3) % MCV (80.0-97.0) fL MCH (27.0-32.0) pg MCHC (32.0-37.0) g/dL Plt Count (140-440) 10*3/uL MPV (9.5-12.2) fL Immature Gran % (Auto) % Neutrophils % % Lymphocytes % % Monocytes % % Eosinophils % % Basophils % % Immature Gran # (0.00-0.04) 10*3/uL Neutrophils # (1.80-7.70) 10*3/uL Lymphocytes # (0.90-5.00) 10*3/uL Monocytes # (0.20-1.00) 10*3/uL Eosinophils # (0.04-0.35) 10*3/uL Basophils # (0.00-0.10) 10*3/uL Sodium (137-145) mmol/L Potassium (3.5-5.1) mmol/L Chloride (98-107) mmol/L Carbon Dioxide (22-30) mmol/L Anion Gap mmol/L BUN (7-17) mg/dL Creatinine (0.52-1.04) mg/dL Est GFR (CKD-EPI)AfAm (>60 ml/min/1.73 sqM) Est GFR (CKD-EPI)NonAf (>60 ml/min/1.73 sqM) Glucose (74-99) mg/dL Plasma Lactic Acid Brant 1.6 (0.7-2.0) mmol/L Calcium (8.4-10.2) mg/dL Total Bilirubin (0.2-1.3) mg/dL AST (14-36) U/L ALT (4-34) U/L Alkaline Phosphatase (38-126) U/L Total Protein (6.3-8.2) g/dL Albumin (3.5-5.0) g/dL Urine Color Urine Appearance (Clear) Urine pH (5.0-8.0) Ur Specific [place] (1.001-1.035) Urine Protein (Negative) Urine Glucose (UA) (Negative) Urine Ketones (Negative) Urine Blood (Negative) Urine Nitrite (Negative) Urine Bilirubin (Negative) Urine Urobilinogen (<2.0) mg/dL Ur Leukocyte Esterase (Negative) Urine RBC (0-5) /hpf Urine WBC (0-5) /hpf Ur Squamous Epith Cells (0-4) /hpf Disposition Clinical Impression: Right flank pain, Recurrent kidney stones Disposition: HOME SELF-CARE Condition: Stable Instructions (If sedation given, give patient instructions): Flank Pain (ED) Additional Instructions: Follow-up for your PCP appointment on Sunday and your urologist appointment on . Please return to the Emergency Department if symptoms worsen or any other concerns. Is patient prescribed a controlled substance at d/c from ED?: No Referrals: Rajiv Sexton MD [Primary Care Provider] - 1-2 days Time of Disposition: 16:55
[2024-12-28 16:11] LABS: ALT 20 U/L (4-34); AST 28 U/L (14-36); African American GFR (CKD) >90 (>60 ml/min/1.73 sqM); Albumin 4.7 g/dL (3.5-5.0); Alkaline Phosphatase 74 U/L (38-126); Anion Gap 16 mmol/L; Blood Urea Nitrogen 18 mg/dL (7-17); Calcium 10.2 mg/dL (8.4-10.2); Carbon Dioxide 20 mmol/L (22-30); Chloride 105 mmol/L (98-107); Glucose 128 mg/dL (74-99); Non-African American GFR(CKD) >90 (>60 ml/min/1.73 sqM); Potassium 4.0 mmol/L (3.5-5.1); Sodium 141 mmol/L (137-145); Total Protein 7.5 g/dL (6.3-8.2)
[2024-12-28] MEDS: HYDROmorphone 0.5 MG/0.5 ML SYRINGE IVP STA (17:23)
[2024-12-28 17:31] VITALS: BP 115/80; PULSE 76; RESP 16; TEMP 98.8
== END 2024-12-28 17:30 | disposition home or self-care (01) ==
LOC: EC 15:01
DX: N20.0 Calculus of kidney (principal); F17.290 Nicotine dependence, other tobacco product, uncomplicated; Z88.2 Allergy status to sulfonamides; Z91.041 Radiographic dye allergy status; Z88.1 Allergy status to other antibiotic agents; Z88.0 Allergy status to penicillin; Z88.8 Allergy status to other drugs, medicaments and biological substances
CPT/HCPCS: 36415; 80053; 83605; 85025; 81001; 87086; 99284; 96374; 96375 ×2; 96376; 96361; J2405; J1171 ×2; J1885

== ENCOUNTER 2025-01-07 20:20 | Inpatient (IN) | payer MEDICAID, OTHER ==
--- NOTE | 2025-01-07 21:36 | ED ---
Psych HPI - General Chief Complaint: Psychiatric Symptoms Stated Complaint: Suicidal Time Seen by Provider: 01/07/25 20:52 Source: patient, RN notes reviewed Mode of arrival: ambulatory Limitations: no limitations - History of Present Illness Initial Comments: This is a 49-year-old female who presents to the emergency department for psychiatric evaluation. States that she has had an increase in depression over the last couple of weeks. States that everything is just piling up on her. She did also just move in with her brother. Reports feeling suicidal with a plan to hang herself. She does have a history of suicidal thoughts in the past but denies any history of suicidal attempts. Denies any homicidal ideations. She does also report auditory hallucinations telling her to harm herself. MD Complaint: suicidal ideation, feels depressed - Related Data Home Medications Medication Instructions Recorded Confirmed oxyCODONE-APAP 10-325MG [Percocet 1 tab PO QID PRN 08/29/17 05/03/23 10-325 mg] PARoxetine HCL [Paxil] 40 mg PO DAILY 03/12/18 05/03/23 PARoxetine [Paxil] 20 mg PO DAILY 06/04/18 05/03/23 Loratadine 10 mg PO DAILY 04/21/20 05/03/23 Dextroamphetamine/Amphetamine 20 mg PO BID 12/07/21 05/03/23 [Dextroamp-Amphetamin 20 mg Tab] Multivitamins, Thera [Multivitamin 1 tab PO DAILY 12/07/21 05/03/23 (formulary)] SUMAtriptan succinate [Imitrex] 100 mg PO DAILY PRN 12/07/21 05/03/23 Atorvastatin [Lipitor] 40 mg PO DAILY 05/03/23 05/03/23 Cholecalciferol [Vitamin D3 (25 25 mcg PO DAILY 05/03/23 05/03/23 Mcg = 1000 Iu)] Cyanocobalamin (Vitamin B-12) 1,000 mcg PO DAILY 05/03/23 05/03/23 [Vitamin B-12] Tirzepatide [Mounjaro] 12.5 mg SQ WE 05/03/23 05/03/23 lisinopriL [Zestril] 10 mg PO DAILY 05/03/23 05/03/23 metFORMIN HCL 1,000 mg PO BID 05/03/23 05/03/23 Previous Rx's Medication Instructions Recorded Ondansetron Odt [Zofran Odt] 4 mg PO Q8HR PRN #20 tab 09/06/22 Cephalexin [Keflex] 500 mg PO Q6HR 7 Days #28 cap 09/27/23 Fluconazole 150 mg PO DIRECTED #2 tab 09/27/23 Tamsulosin [Flomax] 0.4 mg PO DAILY 14 Days #14 cap 11/26/23 Prochlorperazine [Compazine] 10 mg PO Q8H #14 tab 04/15/24 Ondansetron Odt [Zofran Odt] 4 mg PO Q8HR PRN #20 tab 05/26/24 Cephalexin [Keflex] 500 mg PO QID #40 cap 08/25/24 Ketorolac [Toradol] 10 mg PO Q8HR #15 tab 10/11/24 Tamsulosin [Flomax] 0.4 mg PO DAILY #7 cap 10/11/24 Fluconazole [Diflucan] 150 mg PO ONCE #2 tab 10/20/24 Nitrofurantoin Monohyd/M-Cryst 100 mg PO Q12HR #14 cap 10/20/24 [Macrobid] Allergies Allergy/AdvReac Type Severity Reaction Status Date / Time bupropion HCl Allergy Rash/Hives Verified 01/07/25 20:43 [From Wellbutrin] divalproex sodium Allergy Unknown Verified 01/07/25 20:43 [From Depakote] fentanyl Allergy Swelling Verified 01/07/25 20:43 Iodinated Contrast Media Allergy Anaphylaxis Verified 01/07/25 20:43 [Iodinated Contrast Media - IV Dye] Penicillins Allergy Rash/Hives/Gi Verified 01/07/25 20:43 Upset Sulfa (Sulfonamide Allergy Rash/Hives Verified 01/07/25 20:43 Antibiotics) sulfamethoxazole Allergy Rash/Hives Verified 01/07/25 20:43 [From Bactrim] trimethoprim [From Bactrim] Allergy Rash/Hives Verified 01/07/25 20:43 Review of Systems ROS Statement: Those systems with pertinent positive or pertinent negative responses have been documented in the HPI. ROS Other: All systems not noted in ROS Statement are negative. 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 History of Any Multi-Drug Resistant Organisms: C-DIFF, ESBL Date of last positivie culture/infection: 05/14/17 MDRO Source:: ESBL URINE, Past Surgical History: Bladder Surgery, Section, Cholecystectomy, Hysterectomy, Orthopedic Surgery, Tubal Ligation Additional Past Surgical History / Comment(s): R ovarian cystectomy, laparoscopic surgery for L ovary that had attached to the bowel, D&C, numerous lithotripsies, nephroscopies, cystoscopies and stents to ureters-none in place at this time, L robotic pyeloplasty with post op infection around kidney which then required a picc line/later removed (pt states was not MRSA), L rotator cuff repair, L wrist tendon surgery, colonoscopy. Kidney stone removal. Past Anesthesia/Blood Transfusion Reactions: Family History of Problems w/ Anesthesia Additional Past Anesthesia/Blood Transfusion Reaction / Comment(s): dad-hard time waking up due to enzyme problems in liver Past Psychological History: ADD/ADHD, Anxiety, Bipolar, Depression, PTSD Smoking Status: Current every day smoker, Vaper Past Alcohol Use History: None Reported Past Drug Use History: Marijuana - Past Family History Brother(s) Family Medical History: Cancer Additional Family Medical History / Comment(s): testicular Father Family Medical History: Coronary Artery Disease (CAD), CVA/TIA, Diabetes Mellitus, Renal Disease Additional Family Medical History / Comment(s): GLAUCOMA,NEUROPATHY HAD TRIPLE CABG, at 56yrs from renal disease. Mother Family Medical History: Hyperlipidemia Additional Family Medical History / Comment(s): DDD, HAD 3 vessel CABG AGE 54. General Exam Limitations: no limitations General appearance: alert, in no apparent distress Head exam: Present: atraumatic, normocephalic, normal inspection Respiratory exam: Present: normal lung sounds bilaterally. Absent: respiratory distress, wheezes, rales, rhonchi, stridor Cardiovascular Exam: Present: regular rate, normal rhythm Neurological exam: Present: alert Psychiatric exam: Present: depressed, suicidal ideation. Absent: homicidal ideation Skin exam: Present: warm, dry, intact, normal color. Absent: rash Course Vital Signs 01/07/25 01/08/25 20:43 00:44 Temperature 98.1 F 97.9 F Pulse Rate 105 H Respiratory 18 17 Rate Blood Pressure 154/95 O2 Sat by Pulse 100 97 Oximetry Medical Decision Making - Medical Decision Making This is a 49 year old female who presents to the emergency department for psychiatric evaluation. Was pt. sent in by a medical professional or institution? @ -No Did you speak to anyone other than the patient for history? @ -No Did you review nursing and triage notes? @ -Yes, and I agree, it is accurate with regards to the patient's symptoms. Were old charts reviewed? @ -No Differential Diagnosis? @ -Differential Mental Health Depression, anxiety, bipolar, psychosis, schizophrenia, borderline personality, situational depression, adjustment disorder, behavioral disorder, brain tumor, malingering, substance abuse, encephalopathy, medication reaction, dementia, hypothyroidism, degenerative neurologic disorder, lupus.... This is not meant to be all-inclusive list EKG interpreted by me (3pts min.)? @ -Not obtained X-rays interpreted by me (1pt min.)? @ -Not obtained CT interpreted by me (1pt min.)? @ -Not obtained U/S interpreted by me (1pt. min.)? @ -Not obtained What testing was considered but not performed? (CT, X-rays, U/S, labs)? Why? @ -None What meds were considered but not given? Why? @ -None Did you discuss the management of the patient with other professionals? @ -Yes, Michelle Howard with EPS who advised that the patient meets criteria for inpatient psychiatric hospitalization. Did you reconcile home meds? @ -No Was smoking cessation discussed for >3mins.? @ -No Was critical care preformed (if so, how long)? @ -No Were there social determinants of health that impacted care today? How? (Homelessness, low income, unemployed, alcoholism, drug addiction, transportation, low edu. Level, literacy, decrease access to med. care, [facility], rehab)? @ -No Was there de-escalation of care discussed even if they declined? (Discuss DNR or withdrawal of care, Hospice)? @ -No What co-morbidities impacted this encounter? (DM, HTN, Smoking, COPD, CAD, Cancer, CVA, Hep., AIDS, mental health diagnosis, sleep apnea, morbid obesity)? @ -Depression, anxiety Was patient admitted / discharged? @ -Admitted. Patient's BAT was 0.0 and she was cleared for EPS evaluation. UDS positive for opiates, oxycodone, and amphetamines. EPS evaluated the patient and advised that she meets criteria for inpatient psychiatric hospitalization due to active suicidal ideations with a plan and auditory hallucinations. Patient admitted to [facility] on a voluntary basis for further psychiatric care. Undiagnosed new problem with uncertain prognosis? @ -None Drug Therapy requiring intensive monitoring for toxicity (Heparin, Nitro, Insulin, Cardizem)? @ -None Were any procedures done? @ -None Diagnosis/symptom? @ -Suicidal ideations Acute, or Chronic, or Acute on Chronic? @ -Acute Uncomplicated (without systemic symptoms) or Complicated (systemic symptoms)? @ -Complicated Side effects of treatment? @ -None Exacerbation, Progression, or Severe Exacerbation] @ -Not applicable Poses a threat to life or bodily function? @ -Yes, can lead to - Lab Data Lab Results 01/07/25 01/07/25 01/07/25 Range/Units 22:39 22:40 23:00 POC Glucose (mg/dL) 134 H (70-110) mg/dL POC Glu [employer] Operator ID Wally Liz Urine Color Light Yellow Urine Appearance Clear (Clear) Urine pH 5.5 (5.0-8.0) Ur Specific [place] 1.026 (1.001-1.035) Urine Protein Negative (Negative) Urine Glucose (UA) Negative (Negative) Urine Ketones Negative (Negative) Urine Blood Negative (Negative) Urine Nitrite Negative (Negative) Urine Bilirubin Negative (Negative) Urine Urobilinogen <2.0 (<2.0) mg/dL Ur Leukocyte Esterase Negative (Negative) Urine Opiates Screen Detected H (NotDetected) Ur Oxycodone Screen Detected H (NotDetected) Urine Methadone Screen Not Detected (NotDetected) Ur Barbiturates Screen Not Detected (NotDetected) U Tricyclic Antidepress Not Detected (NotDetected) Ur Phencyclidine Scrn Not Detected (NotDetected) Ur Amphetamines Screen Detected H (NotDetected) U Methamphetamines Scrn Not Detected (NotDetected) U Benzodiazepines Scrn Not Detected (NotDetected) Urine Cocaine Screen Not Detected (NotDetected) U Marijuana (THC) Screen Not Detected (NotDetected) SARS-CoV-2 (PCR) Not Detected (Not Detectd) Disposition Clinical Impression: Suicidal ideations, Uncontrolled depression Disposition: TRANSFER TO PSYCH HOSP/UNIT
[2025-01-07 22:42] LABS: Glucose,Whole Blood 134 mg/dL (70-110)
[2025-01-07 23:07] LABS: Bilirubin,Urine Negative (Negative); Blood,Urine Negative (Negative); Color,Urine Light Yellow; Glucose,Urine (UA) Negative (Negative); Ketones,Urine Negative (Negative); Leukocyte Esterase,Urine Negative (Negative); Nitrite,Urine Negative (Negative); PH, Urine 5.5 (5.0-8.0); Protein,Urine Negative (Negative); Specific Gravity,Urine 1.026 (1.001-1.035); Urobilinogen,Urine <2.0 mg/dL (<2.0)
[2025-01-07 23:27] LABS: Barbiturate Screen,Urine Not Detected (NotDetected); Benzodiazepines Screen,Urine Not Detected (NotDetected); Opiate Screen,Urine Detected (NotDetected); Oxycodone Screen, Urine Detected (NotDetected); Phencyclidine Screen,Urine Not Detected (NotDetected); Tricyclic Antidepressant,Urine Not Detected (NotDetected); Urn Cannabinoid Scrn Not Detected (NotDetected)
[2025-01-08] MEDS ORDERED: MAGNESIUM HYDROXIDE 2,400 MG/30 ML CUP PO PRN (00:28)
[2025-01-08] MEDS ORDERED: MAG HYDROX/AL HYDROX/SIMETH 355 ML BOTTLE PO PRN (00:28)
[2025-01-08] MEDS ORDERED: IBUPROFEN 600 MG TAB PO PRN (00:28)
[2025-01-08] MEDS ORDERED: ACETAMINOPHEN TAB 325 MG TAB PO PRN (00:28)
[2025-01-08] MEDS ORDERED: hydrOXYzine HCL 50 MG/ML 1 ML VIAL IM PRN (00:28)
[2025-01-08] MEDS ORDERED: OLANZapine 10 MG TAB PO PRN (00:28)
[2025-01-08] MEDS ORDERED: OLANZapine 10 MG VIAL IM PRN (00:28)
[2025-01-08] MEDS: oxyCODONE-APAP 10-325MG 1 EACH TAB PO PRN (01:40)
[2025-01-08 07:55] LABS: Glucose,Whole Blood 131 mg/dL (70-110)
[2025-01-08] MEDS: INSULIN LISPRO (HumaLOG) 100 UNIT/ML 10 mL VL SQ SCH (08:11)
[2025-01-08] MEDS: ATORVASTATIN 40 MG TAB PO SCH (08:12)
[2025-01-08] MEDS: metFORMIN 500 MG TAB PO SCH (08:12)
[2025-01-08] MEDS: LORATADINE 10 MG TAB PO SCH (08:12)
[2025-01-08] MEDS: NICOTINE 14MG/24HR PATCH TRANSDERM SCH (08:13)
[2025-01-08] MEDS: PARoxetine 20 MG TAB PO SCH ×2 (08:14)
[2025-01-08 12:39] LABS: Glucose,Whole Blood 107 mg/dL (70-110)
[2025-01-08] MEDS: ONDANSETRON ODT 4 MG TAB PO PRN (12:46)
[2025-01-08] MEDS: ARIPiprazole 5 MG TAB PO ONE (14:11)
[2025-01-08] MEDS: CYANOCOBALAMIN 500 MCG TAB PO SCH (14:11)
[2025-01-08] MEDS: CHOLECALCIFEROL 25 MCG (1000 IU) TABLET PO SCH (14:11)
[2025-01-08] MEDS: MULTIVITAMINS, THERA 1 EACH TAB PO SCH (14:11)
--- NOTE | 2025-01-08 14:35 | P.HP ---
Psychiatric H&P - . H&P Date: 01/08/25 History & Physical: Allergies Allergy/AdvReac Type Severity Reaction Status Date / Time bupropion HCl Allergy Rash/Hives Verified 01/07/25 20:43 From Wellbutrin divalproex sodium Allergy Unknown Verified 01/07/25 20:43 From Depakote fentanyl Allergy Swelling Verified 01/07/25 20:43 Iodinated Contrast Media Allergy Anaphylaxis Verified 01/07/25 20:43 Iodinated Contrast Media - IV Dye Penicillins Allergy Rash/Hives/Gi Verified 01/07/25 20:43 Upset Sulfa (Sulfonamide Allergy Rash/Hives Verified 01/07/25 20:43 Antibiotics) sulfamethoxazole Allergy Rash/Hives Verified 01/07/25 20:43 From Bactrim trimethoprim from Bactrim Allergy Rash/Hives Verified 01/07/25 20:43 Vital Signs Temp 98 F 01/08/25 08:18 Pulse 89 01/08/25 08:18 Resp 18 01/08/25 08:18 BP 105/69 01/08/25 08:18 Pulse Ox 97 01/08/25 00:44 FiO2 Intake & Output 01/07/25 01/08/25 01/08/25 18:59 06:59 18:59 Weight 60.498 kg Laboratory Last Values POC Glucose (mg/dL) 107 mg/dL (70-110) 01/08/25 12:38 POC Glu Fly Maker TARIQ Hernandez 01/08/25 12:38 Urine Color Light Yellow 01/07/25 23:00 Urine Appearance Clear (Clear) 01/07/25 23:00 Urine pH 5.5 (5.0-8.0) 01/07/25 23:00 Ur Specific [place] 1.026 (1.001-1.035) 01/07/25 23:00 Urine Protein Negative (Negative) 01/07/25 23:00 Urine Glucose (UA) Negative (Negative) 01/07/25 23:00 Urine Ketones Negative (Negative) 01/07/25 23:00 Urine Blood Negative (Negative) 01/07/25 23:00 Urine Nitrite Negative (Negative) 01/07/25 23:00 Urine Bilirubin Negative (Negative) 01/07/25 23:00 Urine Urobilinogen <2.0 mg/dL (<2.0) 01/07/25 23:00 Ur Leukocyte Esterase Negative (Negative) 01/07/25 23:00 Urine HCG, Qual Not Detected (Not Detectd) 01/07/25 23:00 Urine Opiates Screen Detected (NotDetected) H 01/07/25 23:00 Ur Oxycodone Screen Detected (NotDetected) H 01/07/25 23:00 Urine Methadone Screen Not Detected (NotDetected) 01/07/25 23:00 Ur Barbiturates Screen Not Detected (NotDetected) 01/07/25 23:00 U Tricyclic Antidepress Not Detected (NotDetected) 01/07/25 23:00 Ur Phencyclidine Scrn Not Detected (NotDetected) 01/07/25 23:00 Ur Amphetamines Screen Detected (NotDetected) H 01/07/25 23:00 U Methamphetamines Scrn Not Detected (NotDetected) 01/07/25 23:00 U Benzodiazepines Scrn Not Detected (NotDetected) 01/07/25 23:00 Urine Cocaine Screen Not Detected (NotDetected) 01/07/25 23:00 U Marijuana (THC) Screen Not Detected (NotDetected) 01/07/25 23:00 SARS-CoV-2 (PCR) Not Detected (Not Detectd) 01/07/25 22:40 01/08/25 13:44 IDENTIFYING DATA: Patient is a 49-year-old male, she is single, she has 1 son, she is unemployed she lives with her family in a house HPI: Patient presented to the hospital yesterday on her own. Claims that she was having significant depression and suicidal ideations with a plan to hang herself. She claims that she was hearing negative voices talking to her telling her to harm herself and her life and giving her other commands. Claims that this has been going on for the past 6 months or so. States that the voices have been increasing in the past few days. States that she took herself in the hospital for help, she does claim that she is having several different stressors in her life. Claims that her cousin went to a whole process of being convicted for a criminal sexual conduct charge went to jail as an [place] evette and superintendent house since she has been trying to help out. Also claims that she has lost her job for finances at this time. Claims that she also lost her place to live and had to be readmitted with her family. Claims that she is finding it difficult to find a job at this time. Also claimed that she was recently in the hospital for C. difficile infection. She claims that she feels "disgusted" with herself negative self-talk, endorsing anxiety depression feelings of being overwhelmed. Endorsing mild paranoia, does claim that she has a history of bipolar disorder questionable manic episodes in the past. Claims that his sleep has been very poor appetite has been fair. Patient denies any homicidal i deations intent or plan. He is endorsing suicidal thoughts at this time no specific plan. At this time patient denies any visual hallucinations. She is endorsing still hearing the voices. Patient denies any flight of ideas racing thoughts and increased in goal directed behavior. Patient admits to using no recreational drugs or cigarettes PAST PSYCHIATRIC HISTORY: Patient has a history of questionable bipolar disorder versus depression. He claims that she has been on several different psychiatric medications in the past, claims that currently she is just on Paxil 60 mg daily prescribed by her primary care doctor. Claims that she was last psychiatrically hospitalized on the mental health unit in 2018. Patient denies any psychiatric outpatient follow-up. Patient denies any history of suicide attempts in the past. 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 Currently unemployed she lives and her family has 1 son. She is single at this time. Denies any past legal history. MENTAL STATUS EXAM: General Appearance: Patient appears to be stated age is alert, directable, and attempts to cooperate. Patient appears to have poor hygiene and grooming. Behavior: Patient is seated without any agitated behavior. Attempts to cooperate. Appears overwhelmed Speech: Patient's speech is fluent and nonpressured. Mood/Affect: Patient reports their mood is depressed and anxious, affect is congruent Suicidality/Homicidality: Patient denies having any homicidal ideation intent or plan. Endorses suicidal thoughts no specific plan or intent Perceptions: Patient denies any visual hallucinations endorses auditory hallucinations command in nature and negative. Though content/process: There is no evidence of any delusional thought content and thought process is linear and goal-directed. Memory and concentration: AOX3, grossly intact for the purposes of this session. Can spell "WORLD" backwards Judgment and insight: Poor STRENGTHS/WEAKNESSES: strength is that patient is resilient. Weakness is that patient has poor judgment and is impulsive INTELLECT: Average IMPRESSIONS: Psychosis unspecified, rule out bipolar disorder with psychotic features versus depressive disorder with psychotic features versus schizoaffective disorder Anxiety disorder unspecified PLAN: -Patient is admitted under voluntary status to MHU for stabilization of psychiatric symptoms and safety. Patient has signed adult voluntary form and has signed medication consent and is placed in patient's chart. -Medications : Abilify 2.5 mg now was increased to 5 mg starting tomorrow for mood stabilization/psychosis. Doxepin 10 mg nightly for insomnia, decrease Paxil to 40 mg daily for mood/anxiety. -Atarax and Zyprexa PRN for agitation/aggression -Patient was informed of the risks, benefits and side effects of the medications and patient verbally consented to taking the medications. Patient signed med consent form and was placed in chart. Patient was offered medication information and declined it -Internal Medicine consult to perform medical evaluation and physical. -NRT -not needed as patient does not smoke -SW on board for discharge planning. Encourage patient to participate in groups to work on coping skills. 01/08/25 14:34
[2025-01-08 17:27] LABS: Glucose,Whole Blood 106 mg/dL (70-110)
[2025-01-08 19:34] LABS: Glucose,Whole Blood 111 mg/dL (70-110)
--- NOTE | 2025-01-08 19:57 | P.CONS ---
History of Present Illness - Reason for Consult Consult date: 01/08/25 medical comanagement - Chief Complaint suicidal ideation - History of Present Illness Leilani is a 49-year-old female with past history of ADD history of chronic renal stones on chronic opioid use primary pretension and major depression. She endorses that she was in her usual state of health until approximately 1.5 weeks ago. She reports that she was having suicidal ideation. She reports that she had thoughts of wanting to hang herself. Given the symptoms she has been present to the hospital where she is currently seen inpatient behavioral health. She does report a history of type 2 diabetes. Reports that her last A1c is self-reported 5.1%. She reports she has metformin in general. She does report that she has seasonal allergies for which she is on loratadine. She also report s that she has primary hypertension. In addition she denies any recreational drug use or alcohol use. She does report that she vapes. 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 History of Any Multi-Drug Resistant Organisms: C-DIFF, ESBL Year Discovered:: 05/14/17 MDRO Source:: ESBL URINE, Past Surgical History: Bladder Surgery, Section, Cholecystectomy, Hysterectomy, Orthopedic Surgery, Tubal Ligation Additional Past Surgical History / Comment(s): R ovarian cystectomy, laparoscopic surgery for L ovary that had attached to the bowel, D&C, numerous lithotripsies, nephroscopies, cystoscopies and stents to ureters-none in place at this time, L robotic pyeloplasty with post op infection around kidney which then required a picc line/later removed (pt states was not MRSA), L rotator cuff repair, L wrist tendon surgery, colonoscopy. Kidney stone removal. Past Anesthesia/Blood Transfusion Reactions: Family History of Problems w/ Anesthesia Additional Past Anesthesia/Blood Transfusion Reaction / Comm: dad-hard time waking up due to enzyme problems in liver Past Psychological History: ADD/ADHD, Anxiety, Bipolar, Depression, PTSD Smoking Status: Current every day smoker, Vaper Past Alcohol Use History: None Reported Past Drug Use History: Marijuana - Past Family History Brother(s) Family Medical History: Cancer Additional Family Medical History / Comment(s): testicular Father Family Medical History: Coronary Artery Disease (CAD), CVA/TIA, Diabetes Mellitus, Renal Disease Additional Family Medical History / Comment(s): GLAUCOMA,NEUROPATHY HAD TRIPLE CABG, at 56yrs from renal disease. Mother Family Medical History: Hyperlipidemia Additional Family Medical History / Comment(s): DDD, HAD 3 vessel CABG AGE 54. Medications and Allergies Home Medications Medication Instructions Recorded Confirmed Type oxyCODONE-APAP 10-325MG [Percocet 1 tab PO QID PRN 08/29/17 05/03/23 History 10-325 mg] PARoxetine HCL [Paxil] 40 mg PO DAILY 03/12/18 05/03/23 History PARoxetine [Paxil] 20 mg PO DAILY 06/04/18 05/03/23 History Loratadine 10 mg PO DAILY 04/21/20 05/03/23 History Dextroamphetamine/Amphetamine 20 mg PO BID 12/07/21 05/03/23 History [Dextroamp-Amphetamin 20 mg Tab] Multivitamins, Thera [Multivitamin 1 tab PO DAILY 12/07/21 05/03/23 History (formulary)] SUMAtriptan succinate [Imitrex] 100 mg PO DAILY PRN 12/07/21 05/03/23 History Ondansetron Odt [Zofran Odt] 4 mg PO Q8HR PRN #20 tab 09/06/22 05/03/23 Rx Atorvastatin [Lipitor] 40 mg PO DAILY 05/03/23 05/03/23 History Cholecalciferol [Vitamin D3 (25 25 mcg PO DAILY 05/03/23 05/03/23 History Mcg = 1000 Iu)] Cyanocobalamin (Vitamin B-12) 1,000 mcg PO DAILY 05/03/23 05/03/23 History [Vitamin B-12] Tirzepatide [Mounjaro] 12.5 mg SQ WE 05/03/23 05/03/23 History lisinopriL [Zestril] 10 mg PO DAILY 05/03/23 05/03/23 History metFORMIN HCL 1,000 mg PO BID 05/03/23 05/03/23 History Cephalexin [Keflex] 500 mg PO Q6HR 7 Days #28 cap 09/27/23 Rx Fluconazole 150 mg PO DIRECTED #2 tab 09/27/23 Rx Tamsulosin [Flomax] 0.4 mg PO DAILY 14 Days #14 cap 11/26/23 Rx Prochlorperazine [Compazine] 10 mg PO Q8H #14 tab 04/15/24 Rx Ondansetron Odt [Zofran Odt] 4 mg PO Q8HR PRN #20 tab 05/26/24 Rx Cephalexin [Keflex] 500 mg PO QID #40 cap 08/25/24 Rx Ketorolac [Toradol] 10 mg PO Q8HR #15 tab 10/11/24 Rx Tamsulosin [Flomax] 0.4 mg PO DAILY #7 cap 10/11/24 Rx Fluconazole [Diflucan] 150 mg PO ONCE #2 tab 10/20/24 Rx Nitrofurantoin Monohyd/M-Cryst 100 mg PO Q12HR #14 cap 10/20/24 Rx [Macrobid] Allergies Allergy/AdvReac Type Severity Reaction Status Date / Time bupropion HCl Allergy Rash/Hives Verified 01/07/25 20:43 [From Wellbutrin] divalproex sodium Allergy Unknown Verified 01/07/25 20:43 [From Depakote] fentanyl Allergy Swelling Verified 01/07/25 20:43 Iodinated Contrast Media Allergy Anaphylaxis Verified 01/07/25 20:43 [Iodinated Contrast Media - IV Dye] Penicillins Allergy Rash/Hives/Gi Verified 01/07/25 20:43 Upset Sulfa (Sulfonamide Allergy Rash/Hives Verified 01/07/25 20:43 Antibiotics) sulfamethoxazole Allergy Rash/Hives Verified 01/07/25 20:43 [From Bactrim] trimethoprim [From Bactrim] Allergy Rash/Hives Verified 01/07/25 20:43 Physical Exam Vitals: Vital Signs Temp Pulse Pulse Resp BP BP Pulse Ox 01/08/25 08:18 98 F 89 18 105/69 01/08/25 00:44 97.9 F 92 17 138/83 97 01/07/25 20:43 98.1 F 105 H 18 154/95 100 Intake and Output 01/08/25 01/08/25 01/08/25 06:59 14:59 22:59 Other: Weight 60.498 kg General: non toxic, no distress Derm: warm, dry Head: atraumatic, normocephalic, symmetric Eyes: EOMI, no lid lag, anicteric sclera, pupils equal round reactive to light ENT: Nose and ears atraumatic, no thrush, no pharyngeal erythema Neck: No thyromegaly, no cervical lymphadenopathy, trachea midline, supple Mouth: no lip lesion, mucus membranes moist Cardiovascular: S1S2 reg, no murmur, Lungs: clear to ascultation bilateral, no ronchi, no rales, no wheeze, no accessory muscle use Abdominal: soft, nontender to palpation, no guarding, no appreciable organomegaly, normal bowel sounds Ext: no gross muscle atrophy Neuro: C moving all extremity spontaneously Psych: Alert, oriented, appropriate affect Results Labs: Abnormal Lab Results - Last 24 Hours (Table) 01/07/25 01/07/25 01/08/25 Range/Units 22:39 23:00 07:50 POC Glucose (mg/dL) 134 H 131 H (70-110) mg/dL Urine Opiates Screen Detected H (NotDetected) Ur Oxycodone Screen Detected H (NotDetected) Ur Amphetamines Screen Detected H (NotDetected) 01/08/25 Range/Units 19:33 POC Glucose (mg/dL) 111 H (70-110) mg/dL Urine Opiates Screen (NotDetected) Ur Oxycodone Screen (NotDetected) Ur Amphetamines Screen (NotDetected) Assessment and Plan Assessment: #) Suicidal ideation with a plan, primary management as per Team #) major depression, continue paxil 60 mg daily #) Dm2, a1c pending. on metformin 1000 mg bid and mounjaro. 5 mg Mounjaro is due today hold per hospital formulary. Continue low intensity sliding scale insulin achs #) primary htn continue lisinopril 10 mg daily #) hld continue atorvastatin 40 mg hs #) b12 deificency continue b12 supplemtnation #) chronic opioid use from chronic renal calculi resulting in scar tissu econtinue home perococet 10-325 mg q6hr prn #) Reactive arthritis with concern for possible rheumatoid arthriis, will start a small burst of prednisone 10 mg daily x 7 days. she is unclear if she is RA serotype + #) vaping use recommend cesstion nicotine patch while inpatient #) ADD, adderal currently held thank you for allowing us to take care of this patient. please do not hesistae to contact us if any qquestions arise. cbc, cmp, a1c and tsh pending at the time of this writing.
[2025-01-08] MEDS: DOXEPIN 10 MG CAP PO SCH (20:53)
[2025-01-08] MEDS: predniSONE 10 MG TAB PO SCH (20:53)
[2025-01-09 07:39] LABS: Glucose,Whole Blood 109 mg/dL (70-110)
[2025-01-09 08:18] LABS: Basophils # (A) 0.06 10*3/uL (0.00-0.10); Basophils % (A) 0.5 %; Eosinophils # (A) 0.04 10*3/uL (0.04-0.35); Eosinophils % (A) 0.3 %; HCT 44.5 % (37.2-46.3); HGB 15.3 g/dL (12.0-15.0); Lymphocytes # (A) 3.07 10*3/uL (0.90-5.00); Lymphocytes % (A) 24.5 %; MCH 29.5 pg (27.0-32.0); MCHC 34.4 g/dL (32.0-37.0); MCV 85.9 fL (80.0-97.0); Monocytes # (A) 0.47 10*3/uL (0.20-1.00); Monocytes % (A) 3.8 %; Neutrophils # (A) 8.85 10*3/uL (1.80-7.70); Neutrophils % (A) 70.7 %; Platelet Count 315 10*3/uL (140-440); RBC 5.18 10*6/uL (4.10-5.20); RDW 11.6 % (11.5-14.5); WBC 12.52 10*3/uL (4.50-10.00)
[2025-01-09 08:33] LABS: Potassium 4.6 mmol/L (3.5-5.1)
[2025-01-09 08:34] LABS: ALT 21 U/L (4-34); AST 21 U/L (14-36); African American GFR (CKD) >90 (>60 ml/min/1.73 sqM); Albumin 4.7 g/dL (3.5-5.0); Alkaline Phosphatase 85 U/L (38-126); Anion Gap 12 mmol/L; Blood Urea Nitrogen 13 mg/dL (7-17); Calcium 10.2 mg/dL (8.4-10.2); Carbon Dioxide 26 mmol/L (22-30); Chloride 101 mmol/L (98-107); Glucose 119 mg/dL (74-99); Non-African American GFR(CKD) >90 (>60 ml/min/1.73 sqM); Sodium 139 mmol/L (137-145); Total Protein 7.3 g/dL (6.3-8.2)
[2025-01-09] MEDS: ARIPiprazole 5 MG TAB PO SCH (09:00)
--- NOTE | 2025-01-09 11:55 | P.PN ---
Progress Note - Text Progress Note Date: 01/09/25 Interval history: Patient was seen today for psychiatric follow-up. Patient was laying in bed a greeable to speak in resume writer's office. Patient states that she is doing a bit better with regards to her mood and anxiety. States that she is feeling a bit tired during the day does not know why this occurs, he is suggesting that maybe it is from her not having her Adderall. States that she slept about 4 to 5 hours last night. Claims that she has been going to some groups, mainly keeping herself on the unit. Denies any side effects of the medications. Claims that her appetite is mildly improving. Denies any visual hallucinations, is still complaining of mild auditory hallucinations improving. Denies any suicidal or homicidal ideations intent or plan MENTAL STATUS EXAM: General Appearance: Patient appears to be stated age is alert, directable, and attempts to cooperate. Patient appears to have improving mildly hygiene and grooming. Behavior: Patient is seated without any agitated behavior. Attempts to cooperate. Speech: Patient's speech is fluent and nonpressured. Mood/Affect: Patient reports their mood is improving mildly, affect is congruent Suicidality/Homicidality: Patient denies having any homicidal ideation intent or plan. Denies any suicidal thoughts no specific plan or intent Perceptions: Patient denies any visual hallucinations endorses improving auditory hallucinations Though content/process: There is no evidence of any delusional thought content and thought process is linear and goal-directed. [place] Memory and concentration: AOX3, grossly intact for the purposes of this session Judgment and insight: Poor, improving mildly IMPRESSIONS: Psychosis unspecified, rule out bipolar disorder with psychotic features versus depressive disorder with psychotic features versus schizoaffective disorder Anxiety disorder unspecified PLAN: -Patient is admitted under voluntary status to [facility] for stabilization of psychiatric symptoms and safety. Patient has signed adult voluntary form and has signed medication consent and is placed in patient's chart. -Medications : Increase Abilify 7.5 mg starting tomorrow for mood stabilization/psychosis. Doxepin 10 mg nightly for insomnia, Paxil 40 mg daily for mood/anxiety. -Atarax and Zyprexa PRN for agitation/aggression -NRT -not needed as patient does not smoke -SW on board for discharge planning. Encourage patient to participate in groups to work on coping skills. Hopeful for discharge likely Sunday if patient is improving.
[2025-01-09 12:52] LABS: Glucose,Whole Blood 121 mg/dL (70-110)
[2025-01-09 15:27] LABS: Cholesterol 238.00 mg/dL (0.00-200.00); HDL Cholesterol 66.20 mg/dL (40.00-60.00); Triglycerides 80.90 mg/dL (0.00-149.00); VLDL Calculation 16.18 mg/dL (5.00-40.00)
[2025-01-09 15:28] LABS: LDL Cholesterol,Calculated 155.6 mg/dL (0.0-131.0)
[2025-01-09 17:39] LABS: Glucose,Whole Blood 129 mg/dL (70-110)
[2025-01-09 20:05] LABS: Glucose,Whole Blood 126 mg/dL (70-110)
[2025-01-10 07:57] LABS: Glucose,Whole Blood 161 mg/dL (70-110)
[2025-01-10] MEDS: ARIPiprazole 15 MG TAB PO SCH (08:24)
[2025-01-10 12:33] LABS: Glucose,Whole Blood 160 mg/dL (70-110)
--- NOTE | 2025-01-10 13:42 | P.PN ---
Progress Note - Text Progress Note Date: 01/10/25 Dictation was produced using [employer] dictation software. Please excuse any grammatical, word or spelling errors. Interval history: Patient was seen in the hallway and was directable and agreeable to speak with the commercial insurance underwriter in the office for psychiatric follow-up. The patient states that she is feeling better today, a little better than yesterday. Mood is "very good." States that depression and anxiety are at the moderate side, she rated depression at 5/10, and anxiety at 3/10. She denied any current SI/HI or self harm, states that she had some thoughts yesterday however nothing so far today. States that she is still having AH, telling her that "you are a bad mom, you need to kill yourself" states that it was started in 2014, and she was in and out of mental hospital. States that it is less intense today, and it is better than yesterday, denied any VH. Sleep was good, it is reported as slept 6 hours overnight. Admitted to good appetite. She has been compliant with her medications, denied any current side effects, states that she used to be on Adderall, and reported that she feels a bit tired. Reported that she feels safe in the unit and is getting a long well with peers and staff. Patient has a good insight into her mental illness and looking forward to going back home sometime next week. We discussed her treatment options and agreed to keep the medication the same at this time since Abilify was increased today. MENTAL STATUS EXAM: General Appearance: Patient appears to be stated age is alert, directable, and attempts to cooperate. Patient appears to have improving mildly hygiene and grooming. Behavior: Patient is seated without any agitated behavior. Attempts to cooperate. Speech: Patient's speech is fluent and nonpressured. Mood/Affect: Patient reports their mood is " very good" improving mildly, affect is congruent Suicidality/Homicidality: Patient denies having any homicidal ideation intent or plan. Denies any suicidal thoughts no specific plan or intent Perceptions: Patient denies any visual hallucinations endorses improving auditory hallucinations, less intense and better than previous day Though content/process: There is no evidence of any delusional thought content and thought process is linear and goal-directed. [place] Memory and concentration: AOX3, grossly intact for the purposes of this session Judgment and insight: Poor, improving mildly IMPRESSIONS: Psychosis unspecified, rule out bipolar disorder with psychotic features versus depressive disorder with psychotic features versus schizoaffective disorder Anxiety disorder unspecified Assessment/Plan: Continue with current diagnosis. Patient continues to meet criteria for inpatient psychiatric admission for symptom stabilization and safety. Patient will be maintained on current psychotropic medication regimen which include Abilify 7.5 mg p.o. daily, increase today from 5 mg, doxepin 10 mg p.o. at bedtime and Paxil 40 mg p.o. daily. Psychoeducation was provided, risk, benefit and side effect discussed, patient agreed to keep her medication at the same dosage today and may consider adjusting Abilify dose pending the patient progress and toleration. Monitor for medication compliance and for any psychotropic medication side effects. Will continue to monitor ongoing response to treatment. Encouraged participation in milieu.
[2025-01-10 17:39] LABS: Glucose,Whole Blood 122 mg/dL (70-110)
[2025-01-10 19:58] LABS: Glucose,Whole Blood 152 mg/dL (70-110)
[2025-01-11 07:42] LABS: Glucose,Whole Blood 126 mg/dL (70-110)
--- NOTE | 2025-01-11 11:09 | P.PN ---
Progress Note - Text Progress Note Date: 01/11/25 Dictation was produced using [employer] dictation software. Please excuse any grammatical, word or spelling errors. Interval history: Patient was seen in her room and was directable and agreeable to speak with the rfp writer in the office for psychiatric follow-up. The patient states that she is doing good today, her mood is "positive." States that depression and anxiety are on the low to moderate side, she rated depression at 3/10, and anxiety at 1/10. She denied any current SI/HI or self harm. States that she is still having AH, however less intense, states that it is coming from inside her head, states that it does not bother her as it used to be. She denied any VH. Sleep was very well, and she admitted to good appetite. States that she went to some groups, and was encouraged to attend more groups. She has been compliant with her medications, denied any current side effects, denied any muscle stiffness, rigidity, abnormal movement or drooling. States that she feels like the medications to work well and she is more positive, and reported that her thoughts are not racing as it used to be. MENTAL STATUS EXAM: General Appearance: Patient appears to be stated age is alert, directable, and attempts to cooperate. Patient appears to have improving mildly hygiene and grooming. Behavior: Patient is seated without any agitated behavior. Attempts to cooperate. Speech: Patient's speech is fluent and nonpressured. Mood/Affect: Patient reports their mood is "positive" improving mildly, affect is congruent Suicidality/Homicidality: Patient denies having any homicidal ideation intent or plan. Denies any suicidal thoughts no specific plan or intent Perceptions: Patient denies any visual hallucinations endorses improving auditory hallucinations, less intense and better than previous day Though content/process: There is no evidence of any delusional thought content and thought process is linear and goal-directed. [place] Memory and concentration: AOX3, grossly intact for the purposes of this session Judgment and insight: Poor, improving mildly IMPRESSIONS: Psychosis unspecified, rule out bipolar disorder with psychotic features versus depressive disorder with psychotic features versus schizoaffective disorder Anxiety disorder unspecified Assessment/Plan: Continue with current diagnosis. Patient continues to meet criteria for inpatient psychiatric admission for symptom stabilization and safety. Patient will be maintained on current psychotropic medication regimen w hich include Abilify 7.5 mg p.o. daily, doxepin 10 mg p.o. at bedtime and Paxil 40 mg p.o. daily no changes today since patient has been improving. Psychoeducation was provided, risk, benefit and side effect discussed, patient agreed to keep her medication at the same dosage today. She denied any side effects, denied any muscle stiffness, rigidity, abnormal movement, or drooling. Monitor for medication compliance and for any psychotropic medication side effects. Will continue to monitor ongoing response to treatment. Encouraged participation in milieu.
[2025-01-11 12:41] LABS: Glucose,Whole Blood 165 mg/dL (70-110)
[2025-01-11 17:38] LABS: Glucose,Whole Blood 186 mg/dL (70-110)
[2025-01-11] MEDS: hydrOXYzine HCL 25 MG TAB PO PRN (18:54)
[2025-01-11 19:56] LABS: Glucose,Whole Blood 138 mg/dL (70-110)
[2025-01-12 07:40] LABS: Glucose,Whole Blood 126 mg/dL (70-110)
--- NOTE | 2025-01-12 11:50 | P.PN ---
Progress Note - Text Progress Note Date: 01/12/25 Interval history: Patient was seen today for psychiatric follow-up. Patient was laying in bed a greeable to speak in underwriter mortgage loan's office. Patient states that her weekend went fairly well states that her mood and anxiety event improving at this time. States that she is not going to many groups still prefers not to socialize on the unit. Claims that she is taking her medications and that they are helping and also has been up for meals. It is that she is sleeping fairly well at bedtime. Denies any side effects of the medications. Denies any visual hallucinations, and she is also denying any auditory hallucinations. Denies any suicidal or homicidal ideations intent or plan MENTAL STATUS EXAM: General Appearance: Patient appears to be stated age is alert, directable, and attempts to cooperate. Patient appears to have improving mildly hygiene and grooming. Behavior: Patient is seated without any agitated behavior. Attempts to cooperate. Speech: Patient's speech is fluent and nonpressured. Mood/Affect: Patient reports their mood is improving mildly, affect is congruent, improving Suicidality/Homicidality: Patient denies having any homicidal ideation intent or plan. Denies any suicidal thoughts no specific plan or intent Perceptions: Patient denies any visual hallucinations denies any auditory hallucinations Though content/process: There is no evidence of any delusional thought content and thought process is linear and goal-directed. Memory and concentration: AOX3, grossly intact for the purposes of this session Judgment and insight: improving mildly IMPRESSIONS: bipolar disorder with psychotic features Anxiety disorder unspecified PLAN: -Patient is admitted under voluntary status to [facility] for stabilization of psychiatric symptoms and safety. Patient has signed adult voluntary form and has signed medication consent and is placed in patient's chart. -Medications : Abilify 7.5 mg for mood stabilization/psychosis. Doxepin 10 mg nightly for insomnia, Paxil 40 mg daily for mood/anxiety. -Atarax and Zyprexa PRN for agitation/aggression -NRT - not needed as patient does not smoke -SW on board for discharge planning. Encourage patient to participate in groups to work on coping skills. Hopeful for discharge likely tomorrow if patient is improving.
[2025-01-12 12:46] LABS: Glucose,Whole Blood 131 mg/dL (70-110)
[2025-01-12 17:25] LABS: Glucose,Whole Blood 164 mg/dL (70-110)
[2025-01-12 19:42] LABS: Glucose,Whole Blood 129 mg/dL (70-110)
[2025-01-12 22:05] VITALS: TEMP 98
[2025-01-13 07:34] LABS: Glucose,Whole Blood 136 mg/dL (70-110)
[2025-01-13 10:57] VITALS: BP 135/88; PULSE 120; RESP 16
--- NOTE | 2025-01-13 11:13 | P.DS ---
Providers Date of admission: 01/08/25 00:04 Expected date of discharge: 01/13/25 Attending physician: Lisandro Irby MD Consults: 01/08/25 00:28 Consult Physician Routine Consulting Provider: Ji Celaya Consult Reason/Comments: H & P Do you want consulting provider notified?: Already Contacted Primary care physician: Rajiv Sexton - Discharge Diagnosis(es) (1) Bipolar disorder with psychotic features Current Visit: Yes Status: Acute Priority: High (2) Anxiety disorder Current Visit: Yes Status: Acute Priority: Medium Hospital Course: Admission HPI: Admission note was completed by proposal lead writer "Patient is a 49-year-old male, she is single, she has 1 son, she is unemployed she lives with her family in a house. Patient presented to the hospital yesterday on her own. Claims that she was having significant depression and suicidal ideations with a plan to hang herself. She claims that she was hearing negative voices talking to her telling her to harm herself and her life and giving her other commands. Claims that this has been going on for the past 6 months or so. States that the voices have been increasing in the past few days. States that she took herself in the hospital for help, she does claim that she is having several different stressors in her life. 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 Also claims that she has lost her job for finances at this time. Claims that she also lost her place to live and had to be readmitted with her family. Claims that she is finding it difficult to find a job at this time. Also claimed that she was recently in the hospital for C. difficile infection. She claims that she feels "disgusted" with herself negative self-talk, endorsing anxiety depression feelings of being overwhelmed. Endorsing mild paranoia, does claim that she has a history of bipolar disorder questionable manic episodes in the past. Claims that his sleep has been very poor appetite has been fair. Patient denies any homicidal ideations intent or plan. He is endorsing suicidal thoughts at this time no specific plan. At this time patient denies any visual hallucinations. She is endorsing still hearing the voices. Patient denies any flight of ideas racing thoughts and increased in goal directed behavior. Patient admits to using no recreational drugs or cigarettes" Hospital course: Upon admission to the unit patient was directable and agreeable to commence treatment and signed adult voluntary form. Patient was initially depressed, anxious and isolative however with time and treatment patient got along well with other patients on the unit and followed unit protocol. Patient was compliant with the medications and denied any side effects throughout hospital course. Patient was started on Abilify increased to a dose of 7.5 mg daily for mood stabilization/psychosis, doxepin 10 mg nightly for insomnia/mood, Paxil dose was reduced down to 40 mg daily for mood/anxiety. Patient spoke of her stressors and engaged in therapy both group/activity therapy. Patient was also seen by medical team for history and physical exam. Throughout the course of the hospitalization patient gradually improved with regards to mood, anxiety, psychosis, sleep and became more future oriented with improved insight and judgment. On the day of discharge patient denied any suicidal or homicidal ideations intent or plan denied any auditory or visual hallucinations. Patient endorsed wanting to live for their health and family. The patient denied any access to guns or weapons. Patient denied any paranoia and did not endorse any delusions. Patient does not have a significant history of substance abuse and was counseled on abstaining from all substances including alcohol and marijuana. . Patient was also counseled on the medications and need for regular compliance and was encouraged to follow-up with their outpatient appointment for mental health and also for primary care. Prior to discharge a family meeting will be arranged by clinical social work aide to answer any questions and ensure safety upon discharge incuding making sure that guns/weapons are either removed from the home or locked away. Mental status exam: General Appearance: Patient appears to be stated age is alert, pleasant, and cooperative. Patient is in no acute distress and has improved hygiene and grooming Behavior: Patient is calmly seated without any agitated behavior. Speech: Patient's speech is fluent and nonpressured. Mood/Affect: Patient reports their mood is "better", affect is congruent and euthymic. Suicidality/Homicidality: Patient denies having any suicidal or homicidal ideation intent or plan. Perceptions: Patient denies any auditory or visual hallucinations. Though content/process: There is no evidence of any delusional thought content and thought process is linear and goal-directed. More future oriented Memory and concentration: AOX3, grossly intact for the purposes of this session. Can spell "WORLD" backwards correctly. Judgment and insight: improved with guarded prognosis Impression: Bipolar disorder with psychotic features Anxiety disorder unspecified Plan: -Continue with discharge today as patient has improved and stabilized psychiatrically and is not currently an imminent threat to themself and/or others. -Continue medications: Paxil 40 mg daily for mood/anxiety, Abilify 7.5 mg daily for mood stabilization/psychosis, doxepin 10 mg nightly for insomnia/ -Patient was counseled on the need for medication compliance and appropriate follow-up at mental health and also primary care for medical issues. Patient verbalized understanding and agreed. -Social work to help coordinate patients discharge today. also to ensure safe home environment that guns/weapons are either removed from the home or locked away. Social work also to arrange for patients follow up appointments with [facility] for psychiatric care along with follow up with primary care provider. -Patient counseled on abstaining from recreational drugs and marijuana and alcohol. Was informed/educated on the adverse effects on their physical and mental health. Patient verbally agreed and understood. -Patient was instructed to return to the hospital or seek immediate medical care if their psychiatric or medical symptoms do worsen or reoccur. Allergies Allergy/AdvReac Type Severity Reaction Status Date / Time bupropion HCl Allergy Rash/Hives Verified 01/07/25 20:43 [From Wellbutrin] divalproex sodium Allergy Unknown Verified 01/07/25 20:43 [From Depakote] fentanyl Allergy Swelling Verified 01/07/25 20:43 Iodinated Contrast Media Allergy Anaphylaxis Verified 01/07/25 20:43 [Iodinated Contrast Media - IV Dye] Penicillins Allergy Rash/Hives/Gi Verified 01/07/25 20:43 Upset Sulfa (Sulfonamide Allergy Rash/Hives Verified 01/07/25 20:43 Antibiotics) sulfamethoxazole Allergy Rash/Hives Verified 01/07/25 20:43 [From Bactrim] trimethoprim [From Bactrim] Allergy Rash/Hives Verified 01/07/25 20:43 Laboratory Results WBC 12.52 10*3/uL (4.50-10.00) H 01/09/25 07:33 RBC 5.18 10*6/uL (4.10-5.20) 01/09/25 07:33 Hgb 15.3 g/dL (12.0-15.0) H 01/09/25 07:33 Hct 44.5 % (37.2-46.3) 01/09/25 07:33 MCV 85.9 fL (80.0-97.0) 01/09/25 07:33 MCH 29.5 pg (27.0-32.0) 01/09/25 07:33 MCHC 34.4 g/dL (32.0-37.0) 01/09/25 07:33 Plt Count 315 10*3/uL (140-440) 01/09/25 07:33 MPV 9.3 fL (9.5-12.2) L 01/09/25 07:33 Immature Gran % (Auto) 0.2 % 01/09/25 07:33 Neutrophils % 70.7 % 01/09/25 07:33 Lymphocytes % 24.5 % 01/09/25 07:33 Monocytes % 3.8 % 01/09/25 07:33 Eosinophils % 0.3 % 01/09/25 07:33 Basophils % 0.5 % 01/09/25 07:33 Immature Gran # 0.03 10*3/uL (0.00-0.04) 01/09/25 07:33 Neutrophils # 8.85 10*3/uL (1.80-7.70) H 01/09/25 07:33 Lymphocytes # 3.07 10*3/uL (0.90-5.00) 01/09/25 07:33 Monocytes # 0.47 10*3/uL (0.20-1.00) 01/09/25 07:33 Eosinophils # 0.04 10*3/uL (0.04-0.35) 01/09/25 07:33 Basophils # 0.06 10*3/uL (0.00-0.10) 01/09/25 07:33 Sodium 139 mmol/L (137-145) 01/09/25 07:33 Potassium 4.6 mmol/L (3.5-5.1) 01/09/25 07:33 Chloride 101 mmol/L (98-107) 01/09/25 07:33 Carbon Dioxide 26 mmol/L (22-30) 01/09/25 07:33 Anion Gap 12 mmol/L 01/09/25 07:33 BUN 13 mg/dL (7-17) 01/09/25 07:33 Creatinine 0.62 mg/dL (0.52-1.04) 01/09/25 07:33 Est GFR (CKD-EPI)AfAm >90 (>60 ml/min/1.73 sqM) 01/09/25 07:33 Est GFR (CKD-EPI)NonAf >90 (>60 ml/min/1.73 sqM) 01/09/25 07:33 Glucose 119 mg/dL (74-99) H 01/09/25 07:33 POC Glucose (mg/dL) 136 mg/dL (70-110) H 01/13/25 07:32 POC Glu Human Services Assistant ID Victoria Rodriguez 01/13/25 07:[address] Glu mg/dL 117 mg/dL 01/09/25 07:33 Hemoglobin A1c 5.7 % (<=6.0) 01/09/25 07:33 Calcium 10.2 mg/dL (8.4-10.2) 01/09/25 07:33 Total Bilirubin 1.5 mg/dL (0.2-1.3) H 01/09/25 07:33 AST 21 U/L (14-36) 01/09/25 07:33 ALT 21 U/L (4-34) 01/09/25 07:33 Alkaline Phosphatase 85 U/L (38-126) 01/09/25 07:33 Total Protein 7.3 g/dL (6.3-8.2) 01/09/25 07:33 Albumin 4.7 g/dL (3.5-5.0) 01/09/25 07:33 Triglycerides 80.90 mg/dL (0.00-149.00) 01/09/25 07:33 Cholesterol 238.00 mg/dL (0.00-200.00) H 01/09/25 07:33 LDL Cholesterol, Calc 155.6 mg/dL (0.0-131.0) H 01/09/25 07:33 VLDL Cholesterol, Calc 16.18 mg/dL (5.00-40.00) 01/09/25 07:33 HDL Cholesterol 66.20 mg/dL (40.00-60.00) H 01/09/25 07:33 Cholesterol/HDL Ratio 3.60 Ratio 01/09/25 07:33 TSH 0.247 mIU/L (0.465-4.680) L 01/09/25 07:33 Urine Color Light Yellow 01/07/25 23:00 Urine Appearance Clear (Clear) 01/07/25 23:00 Urine pH 5.5 (5.0-8.0) 01/07/25 23:00 Ur Specific [place] 1.026 (1.001-1.035) 01/07/25 23:00 Urine Protein Negative (Negative) 01/07/25 23:00 Urine Glucose (UA) Negative (Negative) 01/07/25 23:00 Urine Ketones Negative (Negative) 01/07/25 23:00 Urine Blood Negative (Negative) 01/07/25 23:00 Urine Nitrite Negative (Negative) 01/07/25 23:00 Urine Bilirubin Negative (Negative) 01/07/25 23:00 Urine Urobilinogen <2.0 mg/dL (<2.0) 01/07/25 23:00 Ur Leukocyte Esterase Negative (Negative) 01/07/25 23:00 Urine HCG, Qual Not Detected (Not Detectd) 01/07/25 23:00 Urine Opiates Screen Detected (NotDetected) H 01/07/25 23:00 Ur Oxycodone Screen Detected (NotDetected) H 01/07/25 23:00 Urine Methadone Screen Not Detected (NotDetected) 01/07/25 23:00 Ur Barbiturates Screen Not Detected (NotDetected) 01/07/25 23:00 U Tricyclic Antidepress Not Detected (NotDetected) 01/07/25 23:00 Ur Phencyclidine Scrn Not Detected (NotDetected) 01/07/25 23:00 Ur Amphetamines Screen Detected (NotDetected) H 01/07/25 23:00 U Methamphetamines Scrn Not Detected (NotDetected) 01/07/25 23:00 U Benzodiazepines Scrn Not Detected (NotDetected) 01/07/25 23:00 Urine Cocaine Screen Not Detected (NotDetected) 01/07/25 23:00 U Marijuana (THC) Screen Not Detected (NotDetected) 01/07/25 23:00 SARS-CoV-2 (PCR) Not Detected (Not Detectd) 01/07/25 22:40 Vital Signs Temp 98.0 F 01/12/25 21:00 Pulse 120 H 01/13/25 09:00 Resp 16 01/13/25 09:00 BP 135/88 01/13/25 09:00 Pulse Ox 100 01/12/25 21:00 FiO2 Patient Condition at Discharge: Stable Plan - Discharge Summary Discharge Rx Participant: No New Discharge Prescriptions: New ARIPiprazole [Abilify] 7.5 mg PO DAILY 30 Days #15 tab Doxepin [SINEquan] 10 mg PO HS 30 Days #30 cap PARoxetine HCL [Paxil] 40 mg PO DAILY 30 Days #30 tab Ondansetron Odt [Zofran ODT] 4 mg PO Q8HR PRN tab PRN Reason: Nausea And Vomiting Continue oxyCODONE-APAP 10-325MG [Percocet 10-325 mg] 1 tab PO QID PRN PRN Reason: Pain Loratadine 10 mg PO DAILY Multivitamins, Thera [Multivitamin (formulary)] 1 tab PO DAILY lisinopriL [Zestril] 10 mg PO DAILY Cholecalciferol [Vitamin D3 (25 Mcg = 1000 Iu)] 25 mcg PO DAILY metFORMIN HCL 1,000 mg PO BID Atorvastatin [Lipitor] 40 mg PO DAILY Cyanocobalamin (Vitamin B-12) [Vitamin B-12] 1,000 mcg PO DAILY Tirzepatide [Mounjaro] 12.5 mg SQ WE Discontinued PARoxetine HCL [Paxil] 40 mg PO DAILY PARoxetine [Paxil] 20 mg PO DAILY SUMAtriptan succinate [Imitrex] 100 mg PO DAILY PRN PRN Reason: Migraine Headache Fluconazole 150 mg PO DIRECTED #2 tab Prochlorperazine [Compazine] 10 mg PO Q8H #14 tab Ketorolac [Toradol] 10 mg PO Q8HR #15 tab Nitrofurantoin Monohyd/M-Cryst [Macrobid] 100 mg PO Q12HR #14 cap Fluconazole [Diflucan] 150 mg PO ONCE #2 tab Dextroamphetamine/Amphetamine [Dextroamp-Amphetamin 20 mg Tab] 20 mg PO BID Ondansetron Odt [Zofran Odt] 4 mg PO Q8HR PRN #20 tab PRN Reason: Nausea And Vomiting Cephalexin [Keflex] 500 mg PO Q6HR 7 Days #28 cap Tamsulosin [Flomax] 0.4 mg PO DAILY 14 Days #14 cap Ondansetron Odt [Zofran Odt] 4 mg PO Q8HR PRN #20 tab PRN Reason: Nausea And Vomiting Cephalexin [Keflex] 500 mg PO QID #40 cap Tamsulosin [Flomax] 0.4 mg PO DAILY #7 cap Discharge Medication List oxyCODONE-APAP 10-325MG [Percocet 10-325 mg] 1 tab PO QID PRN 08/29/17 [History] Loratadine 10 mg PO DAILY 04/21/20 [History] Multivitamins, Thera [Multivitamin (formulary)] 1 tab PO DAILY 12/07/21 [History] Atorvastatin [Lipitor] 40 mg PO DAILY 05/03/23 [History] Cholecalciferol [Vitamin D3 (25 Mcg = 1000 Iu)] 25 mcg PO DAILY 05/03/23 [History] Cyanocobalamin (Vitamin B-12) [Vitamin B-12] 1,000 mcg PO DAILY 05/03/23 [History] Tirzepatide [Mounjaro] 12.5 mg SQ WE 05/03/23 [History] lisinopriL [Zestril] 10 mg PO DAILY 05/03/23 [History] metFORMIN HCL 1,000 mg PO BID 05/03/23 [History] ARIPiprazole [Abilify] 7.5 mg PO DAILY 30 Days #15 tab 01/13/25 [Rx] Doxepin [SINEquan] 10 mg PO HS 30 Days #30 cap 01/13/25 [Rx] Ondansetron Odt [Zofran ODT] 4 mg PO Q8HR PRN tab 01/13/25 [Rx] PARoxetine HCL [Paxil] 40 mg PO DAILY 30 Days #30 tab 01/13/25 [Rx] Follow up Appointment(s)/Referral(s): Rajiv Sexton MD [Primary Care Provider] - 1-[address] [facility] [NON-STAFF] - 01/14/25 3:00 pm (Intake appointment 01/14/25 at 3:00 with Laura. ) Patient Instructions/Handouts: How to Stop Smoking (DC), Bipolar Disorder (DC), Generalized Anxiety Disorder (GEN) Activity/Diet/Wound Care/Special Instructions: [facility] Discharge Info Avoid the use of street drugs and alcohol. Take all medications as prescribed. When you are in need of refills on your medications, please contact your outpatient medical provider and/or outpatient psychiatrist. Please go to your scheduled outpatient appointments for aftercare treatment. If symptoms return or become worse, call the crisis line at or and/or visit the nearest emergency room for assistance. [place] [facility] Lifeline - call or text [phone].Medical physician recommends to follow up outpatient in 4-6 weeks to have thyroid levels checked again. Recommendations to have an EMG outpatient on bilateral upper extremities for probable bilateral carpal tunnel. Discharge Disposition: HOME SELF-CARE
[2025-01-14] MEDS ORDERED: NON FORMULARY DRUG (Tirzepatide [Mounjaro] 12.5 MG/0.5 ML Pen.Injctr) SQ SCH (09:00)
== END 2025-01-13 11:11 | disposition home or self-care (01) | DRG 750 ==
LOC: EC 20:20 → 3MHU 01-08 00:04
PROVIDERS: ADMIT Psychiatry & Neurology Psychiatry; ATTEND Psychiatry & Neurology Psychiatry
DX: F31.5 Bipolar disorder, current episode depressed, severe, with psychotic features (principal); E11.9 Type 2 diabetes mellitus without complications; E78.5 Hyperlipidemia, unspecified; F17.290 Nicotine dependence, other tobacco product, uncomplicated; F41.9 Anxiety disorder, unspecified; F43.10 Post-traumatic stress disorder, unspecified; G47.00 Insomnia, unspecified; I10 Essential (primary) hypertension; J30.2 Other seasonal allergic rhinitis; M02.30 Reiter's disease, unspecified site; N20.0 Calculus of kidney; R45.851 Suicidal ideations; E28.2 Polycystic ovarian syndrome; F90.9 Attention-deficit hyperactivity disorder, unspecified type; G43.909 Migraine, unspecified, not intractable, without status migrainosus; F19.11 Other psychoactive substance abuse, in remission; H57.9 Unspecified disorder of eye and adnexa; K21.9 Gastro-esophageal reflux disease without esophagitis; Z79.84 Long term (current) use of oral hypoglycemic drugs; Z79.891 Long term (current) use of opiate analgesic; Z87.01 Personal history of pneumonia (recurrent); Z56.0 Unemployment, unspecified; Z79.899 Other long term (current) drug therapy; Z87.440 Personal history of urinary (tract) infections; Z87.442 Personal history of urinary calculi; Z79.85 Long-term (current) use of injectable non-insulin antidiabetic drugs; Z88.5 Allergy status to narcotic agent; Z88.0 Allergy status to penicillin; Z88.2 Allergy status to sulfonamides; Z88.8 Allergy status to other drugs, medicaments and biological substances; Z91.041 Radiographic dye allergy status; Z71.41 Alcohol abuse counseling and surveillance of alcoholic; Z71.51 Drug abuse counseling and surveillance of drug abuser; E53.8 Deficiency of other specified B group vitamins
CPT/HCPCS: 36415; 80053; 80061; 80306; 81003; 81025; 82075; 83036; 84443; 85025; 87635; 99285

== ENCOUNTER 2025-01-14 20:04 | Emergency (ER) | payer OTHER ==
[2025-01-14 20:08] VITALS: RESP 18; TEMP 98.3
[2025-01-14] MEDS: SODIUM CHLORIDE 0.9% 1,000 ML IV ONE (20:32)
[2025-01-14] MEDS: ONDANSETRON 4 MG/2 ML VIAL IVP STA (20:33)
[2025-01-14] MEDS: HYDROmorphone 1 MG/ML 1 ML SYRINGE IVP STA (20:34)
[2025-01-14 20:36] LABS: Bilirubin,Urine Negative (Negative); Blood,Urine Large (Negative); Color,Urine Yellow; Glucose,Urine (UA) Negative (Negative); Ketones,Urine Negative (Negative); Leukocyte Esterase,Urine Negative (Negative); Nitrite,Urine Negative (Negative); PH, Urine 5.5 (5.0-8.0); Protein,Urine Negative (Negative); RBC,Urine >182 /hpf (0-5); Specific Gravity,Urine 1.021 (1.001-1.035); Squamous Epithelial Cell,Urine 2 /hpf (0-4); Urobilinogen,Urine <2.0 mg/dL (<2.0); WBC,Urine 6 /hpf (0-5)
--- NOTE | 2025-01-14 20:36 | ED ---
Back Pain HPI - General Chief Complaint: Back Pain/Injury Stated Complaint: dehydration, back pain Time Seen by Provider: 01/14/25 20:09 Source: patient Limitations: no limitations - History of Present Illness Initial Comments: 49-year-old female presenting chief complaint of back pain and concerns for dehydration. Patient has a long standing history of kidney stones, well-known to our ER and has been seen here on multiple occasions for this complaint. Reports that she is having bilateral flank pain today. Admits to nausea and vomiting. She also reports that she has had muscle cramping in her calves and toes today, she is concerned that she may be dehydrated. She denies diarrhea. States that she gets regular hot flashes but does not believe she has had a fever. No diarrhea. - Related Data Home Medications Medication Instructions Recorded Confirmed oxyCODONE-APAP 10-325MG [Percocet 1 tab PO QID PRN 08/29/17 05/03/23 10-325 mg] Loratadine 10 mg PO DAILY 04/21/20 05/03/23 Multivitamins, Thera [Multivitamin 1 tab PO DAILY 12/07/21 05/03/23 (formulary)] Atorvastatin [Lipitor] 40 mg PO DAILY 05/03/23 05/03/23 Cholecalciferol [Vitamin D3 (25 25 mcg PO DAILY 05/03/23 05/03/23 Mcg = 1000 Iu)] Cyanocobalamin (Vitamin B-12) 1,000 mcg PO DAILY 05/03/23 05/03/23 [Vitamin B-12] Tirzepatide [Mounjaro] 12.5 mg SQ WE 05/03/23 05/03/23 lisinopriL [Zestril] 10 mg PO DAILY 05/03/23 05/03/23 metFORMIN HCL 1,000 mg PO BID 05/03/23 05/03/23 Previous Rx's Medication Instructions Recorded ARIPiprazole [Abilify] 7.5 mg PO DAILY 30 Days #15 tab 01/13/25 Doxepin [SINEquan] 10 mg PO HS 30 Days #30 cap 01/13/25 Ondansetron Odt [Zofran ODT] 4 mg PO Q8HR PRN tab 01/13/25 PARoxetine HCL [Paxil] 40 mg PO DAILY 30 Days #30 tab 01/13/25 Allergies Allergy/AdvReac Type Severity Reaction Status Date / Time bupropion HCl Allergy Rash/Hives Verified 01/14/25 20:08 [From Wellbutrin] divalproex sodium Allergy Unknown Verified 01/14/25 20:08 [From Depakote] fentanyl Allergy Swelling Verified 01/14/25 20:08 Iodinated Contrast Media Allergy Anaphylaxis Verified 01/14/25 20:08 [Iodinated Contrast Media - IV Dye] Penicillins Allergy Rash/Hives/Gi Verified 01/14/25 20:08 Upset Sulfa (Sulfonamide Allergy Rash/Hives Verified 01/14/25 20:08 Antibiotics) sulfamethoxazole Allergy Rash/Hives Verified 01/14/25 20:08 [From Bactrim] trimethoprim [From Bactrim] Allergy Rash/Hives Verified 01/14/25 20:08 Review of Systems ROS Statement: Those systems with pertinent positive or pertinent negative responses have been documented in the HPI. ROS Other: All systems not noted in ROS Statement are negative. 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 History of Any Multi-Drug Resistant Organisms: C-DIFF, ESBL Date of last positivie culture/infection: 05/14/17 MDRO Source:: ESBL URINE, Past Surgical History: Bladder Surgery, Section, Cholecystectomy, Hysterectomy, Orthopedic Surgery, Tubal Ligation Additional Past Surgical History / Comment(s): R ovarian cystectomy, laparoscopic surgery for L ovary that had attached to the bowel, D&C, numerous lithotripsies, nephroscopies, cystoscopies and stents to ureters-none in place at this time, L robotic pyeloplasty with post op infection around kidney which then required a picc line/later removed (pt states was not MRSA), L rotator cuff repair, L wrist tendon surgery, colonoscopy. Kidney stone removal. Past Anesthesia/Blood Transfusion Reactions: Family History of Problems w/ Anesthesia Additional Past Anesthesia/Blood Transfusion Reaction / Comment(s): dad-hard time waking up due to enzyme problems in liver Past Psychological History: ADD/ADHD, Anxiety, Bipolar, Depression, PTSD Smoking Status: Current every day smoker, Vaper Past Alcohol Use History: None Reported Past Drug Use History: Marijuana - Past Family History Brother(s) Family Medical History: Cancer Additional Family Medical History / Comment(s): testicular Father Family Medical History: Coronary Artery Disease (CAD), CVA/TIA, Diabetes Mellitus, Renal Disease Additional Family Medical History / Comment(s): GLAUCOMA,NEUROPATHY HAD TRIPLE CABG, at 56yrs from renal disease. Mother Family Medical History: Hyperlipidemia Additional Family Medical History / Comment(s): DDD, HAD 3 vessel CABG AGE 54. General Exam Limitations: no limitations General appearance: alert, in no apparent distress Head exam: Present: atraumatic, normocephalic, normal inspection Eye exam: Present: normal appearance, EOMI Neck exam: Present: normal inspection. Absent: meningismus Respiratory exam: Absent: respiratory distress Extremities exam: Present: normal inspection, full ROM Back exam: Present: normal inspection Neurological exam: Present: alert, oriented X3 Psychiatric exam: Present: normal affect, normal mood Skin exam: Present: warm, dry, normal color Course Vital Signs 01/14/25 01/14/25 20:07 21:36 Temperature 98.3 F Pulse Rate 106 H 98 Respiratory 18 18 Rate Blood Pressure 139/77 140/80 O2 Sat by Pulse 98 98 Oximetry Medical Decision Making - Medical Decision Making Was pt. sent in by a medical professional or institution (, PA, [employer], urgent care, hospital, or fpc...) When possible be specific @ -No Did you speak to anyone other than the patient for history (EMS, parent, family, police, friend...)? What history was obtained from this source @ -No Did you review nursing and triage notes (agree or disagree)? Why? @ -I reviewed and agree with nursing and triage notes Were old charts reviewed (outside hosp., previous admission, EMS record, old EKG, old radiological studies, urgent care reports/EKG's, fpc records)? Report findings @ -No old charts were reviewed Differential Diagnosis (chest pain, altered mental status, abdominal pain women, abdominal pain men, vaginal bleeding, weakness, fever, dyspnea, syncope, headache, dizziness, GI bleed, back pain, seizure, CVA, palpatations, mental health, musculoskeletal)? @ -Differential Musculoskeletal Muscular strain, contusion, ligament sprain, fracture, arthritis, septic arthritis, bursitis, cellulitis, muscle spasm, nerve compression, DVT, arterial occlusion, herpes zoster, electrolyte abnormality, tumor.... This is not meant to be in all inclusive list EKG interpreted by me (3pts min.). @ -As above X-rays interpreted by me (1pt min.). @ -None done CT interpreted by me (1pt min.). @ -None done U/S interpreted by me (1pt. min.). @ -None done What testing was considered but not performed or refused? (CT, X-rays, U/S, labs)? Why? @ -None What meds were considered but not given or refused? Why? @ -None Did you discuss the management of the patient with other professionals (professionals i.e. DrKarli, PA, [employer], lab, RT, psych nurse, health and social care teacher, formwork carpenter, teacher, conservation enforcement officer, case management assistant)? Give summary @ -No Was smoking cessation discussed for >3mins.? @ -No Was critical care preformed (if so, how long)? @ -No Were there social determinants of health that impacted care today? How? ( Homelessness, low income, unemployed, alcoholism, drug addiction, transportation, low edu. Level, literacy, decrease access to med. care, fpc, rehab)? @ -No Was there de-escalation of care discussed even if they declined (Discuss DNR or withdrawal of care, Hospice)? DNR status @ -No What co-morbidities impacted this encounter? (DM, HTN, Smoking, COPD, CAD, Cancer, CVA, ARF, Chemo, Hep., AIDS, mental health diagnosis, sleep apnea, morbid obesity)? @ -None Was patient admitted / discharged? Hospital course, mention meds given and route, prescriptions, significant lab abnormalities, going to OR and other pertinent info. @ -49-year-old female with history of kidney stones here with chief complaint of back pain and muscle cramping. No red flag symptoms. Concerned for dehydration. History and physical examination are conducted. BMP requires no action. Urine shows large blood which is usual for this patient. She feels much better after IV fluids and pain meds. She is educated on today's findings. Follow-up with PCP. Report back to ER with any new or worsening symptoms. Discussed return parameters and answered all questions. Patient conveyed verbal understanding and agreed to the plan. I discussed this case in detail with my attending Dr. Linda Undiagnosed new problem with uncertain prognosis? @ -No Drug Therapy requiring intensive monitoring for toxicity (Heparin, Nitro, Insulin, Cardizem)? @ -No Were any procedures done? @ -No Diagnosis/symptom? @ -Back pain, muscle cramps Acute, or Chronic, or Acute on Chronic? @ -Acute Uncomplicated (without systemic symptoms) or Complicated (systemic symptoms)? @ -Uncomplicated Side effects of treatment? @ -No Exacerbation, Progression, or Severe Exacerbation? @ -No Poses a threat to life or bodily function? How? (Chest pain, USA, CA, pneumonia, PE, COPD, DKA, ARF, appy, cholecystitis, CVA, Diverticulitis, Homicidal, Suicidal, threat to staff... and all critical care pts) @ -Unlikely - Lab Data Result diagrams: 01/14/25 20:29 Lab Results 01/14/25 01/14/25 Range/Units 20:10 20:29 Sodium 140 (137-145) mmol/L Potassium 4.2 (3.5-5.1) mmol/L Chloride 105 (98-107) mmol/L Carbon Dioxide 23 (22-30) mmol/L Anion Gap 12 mmol/L BUN 15 (7-17) mg/dL Creatinine 0.59 (0.52-1.04) mg/dL Est GFR (CKD-EPI)AfAm >90 (>60 ml/min/1.73 sqM) Est GFR (CKD-EPI)NonAf >90 (>60 ml/min/1.73 sqM) Glucose 138 H (74-99) mg/dL Calcium 9.7 (8.4-10.2) mg/dL Urine Color Yellow Urine Appearance Cloudy H (Clear) Urine pH 5.5 (5.0-8.0) Ur Specific [place] 1.021 (1.001-1.035) Urine Protein Negative (Negative) Urine Glucose (UA) Negative (Negative) Urine Ketones Negative (Negative) Urine Blood Large H (Negative) Urine Nitrite Negative (Negative) Urine Bilirubin Negative (Negative) Urine Urobilinogen <2.0 (<2.0) mg/dL Ur Leukocyte Esterase Negative (Negative) Urine RBC >182 H (0-5) /hpf Urine WBC 6 H (0-5) /hpf Ur Squamous Epith Cells 2 (0-4) /hpf Disposition Clinical Impression: Back pain, Muscle cramp Disposition: HOME SELF-CARE Condition: Good Instructions (If sedation given, give patient instructions): Muscle Cramp (ED), Back Pain (ED) Additional Instructions: Follow-up with PCP. Report back to ER with any new or worsening symptoms. Is patient prescribed a controlled substance at d/c from ED?: No Referrals: Rajiv Sexton MD [Primary Care Provider] - 1-2 days Time of Disposition: 21:21
[2025-01-14 20:58] LABS: African American GFR (CKD) >90 (>60 ml/min/1.73 sqM); Anion Gap 12 mmol/L; Blood Urea Nitrogen 15 mg/dL (7-17); Calcium 9.7 mg/dL (8.4-10.2); Carbon Dioxide 23 mmol/L (22-30); Chloride 105 mmol/L (98-107); Glucose 138 mg/dL (74-99); Non-African American GFR(CKD) >90 (>60 ml/min/1.73 sqM); Potassium 4.2 mmol/L (3.5-5.1); Sodium 140 mmol/L (137-145)
[2025-01-14 21:37] VITALS: BP 140/80; PULSE 98
== END 2025-01-14 21:40 | disposition home or self-care (01) ==
LOC: EC 20:04
DX: M54.9 Dorsalgia, unspecified (principal); R25.2 Cramp and spasm; F17.290 Nicotine dependence, other tobacco product, uncomplicated; Z88.0 Allergy status to penicillin; Z88.1 Allergy status to other antibiotic agents; Z88.2 Allergy status to sulfonamides; Z88.8 Allergy status to other drugs, medicaments and biological substances; Z91.041 Radiographic dye allergy status
CPT/HCPCS: 36415; 80048; 81001; 99283; 96374; 96375; 96361; J2405; J1171

== ENCOUNTER 2025-01-22 22:00 | Emergency (ER) | payer OTHER ==
[2025-01-22 22:20] VITALS: RESP 18
--- NOTE | 2025-01-22 23:05 | ED ---
Abdominal Pain HPI - General Chief Complaint: Abdominal Pain Stated Complaint: Kidney stones Time Seen by Provider: 01/22/25 22:30 Source: patient, RN notes reviewed, old records reviewed Mode of arrival: ambulatory Limitations: no limitations - History of Present Illness Initial Comments: 49-year-old female presented to the ER for evaluation of left flank pain. Patient states she has an extensive history of kidney stones and she is followi ng up with urologist, Dr. Burk, out of [facility]. Patient reports for the past week she has been having increasing left flank pain. She states the pain makes her feel nauseous and she has had episodes of emesis. She denies any hematemesis or coffee-ground emesis. Patient denies any diarrhea, constipation, hematochezia or melena. Patient does admit to hematuria but states this is chronic due to kidney stones no dysuria or increasing urinary frequency. Patient denies any fevers or chills. She has attempted to take prescribed Percocet, Zofran, Flomax and Toradol without relief of symptoms which prompted emergency department visit. No other complaints - Related Data Home Medications Medication Instructions Recorded Confirmed oxyCODONE-APAP 10-325MG [Percocet 1 tab PO QID PRN 08/29/17 05/03/23 10-325 mg] Loratadine 10 mg PO DAILY 04/21/20 05/03/23 Multivitamins, Thera [Multivitamin 1 tab PO DAILY 12/07/21 05/03/23 (formulary)] Atorvastatin [Lipitor] 40 mg PO DAILY 05/03/23 05/03/23 Cholecalciferol [Vitamin D3 (25 25 mcg PO DAILY 05/03/23 05/03/23 Mcg = 1000 Iu)] Cyanocobalamin (Vitamin B-12) 1,000 mcg PO DAILY 05/03/23 05/03/23 [Vitamin B-12] Tirzepatide [Mounjaro] 12.5 mg SQ WE 05/03/23 05/03/23 lisinopriL [Zestril] 10 mg PO DAILY 05/03/23 05/03/23 metFORMIN HCL 1,000 mg PO BID 05/03/23 05/03/23 Previous Rx's Medication Instructions Recorded ARIPiprazole [Abilify] 7.5 mg PO DAILY 30 Days #15 tab 01/13/25 Doxepin [SINEquan] 10 mg PO HS 30 Days #30 cap 01/13/25 Ondansetron Odt [Zofran ODT] 4 mg PO Q8HR PRN tab 01/13/25 PARoxetine HCL [Paxil] 40 mg PO DAILY 30 Days #30 tab 01/13/25 Allergies Allergy/AdvReac Type Severity Reaction Status Date / Time bupropion HCl Allergy Rash/Hives Verified 01/14/25 20:08 [From Wellbutrin] divalproex sodium Allergy Unknown Verified 01/14/25 20:08 [From Depakote] fentanyl Allergy Swelling Verified 01/14/25 20:08 Iodinated Contrast Media Allergy Anaphylaxis Verified 01/14/25 20:08 [Iodinated Contrast Media - IV Dye] Penicillins Allergy Rash/Hives/Gi Verified 01/14/25 20:08 Upset Sulfa (Sulfonamide Allergy Rash/Hives Verified 01/14/25 20:08 Antibiotics) sulfamethoxazole Allergy Rash/Hives Verified 01/14/25 20:08 [From Bactrim] trimethoprim [From Bactrim] Allergy Rash/Hives Verified 01/14/25 20:08 Review of Systems ROS Statement: Those systems with pertinent positive or pertinent negative responses have been documented in the HPI. ROS Other: All systems not noted in ROS Statement are negative. 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 History of Any Multi-Drug Resistant Organisms: C-DIFF, ESBL Date of last positivie culture/infection: 05/14/17 MDRO Source:: ESBL URINE, Past Surgical History: Bladder Surgery, Section, Cholecystectomy, Hysterectomy, Orthopedic Surgery, Tubal Ligation Additional Past Surgical History / Comment(s): R ovarian cystectomy, laparoscopic surgery for L ovary that had attached to the bowel, D&C, numerous lithotripsies, nephroscopies, cystoscopies and stents to ureters-none in place at this time, L robotic pyeloplasty with post op infection around kidney which then required a picc line/later removed (pt states was not MRSA), L rotator cuff repair, L wrist tendon surgery, colonoscopy. Kidney stone removal. Past Anesthesia/Blood Transfusion Reactions: Family History of Problems w/ Anesthesia Additional Past Anesthesia/Blood Transfusion Reaction / Comment(s): dad-hard time waking up due to enzyme problems in liver Past Psychological History: ADD/ADHD, Anxiety, Bipolar, Depression, PTSD Smoking Status: Current every day smoker, Vaper Past Alcohol Use History: None Reported Past Drug Use History: Marijuana - Past Family History Brother(s) Family Medical History: Cancer Additional Family Medical History / Comment(s): testicular Father Family Medical History: Coronary Artery Disease (CAD), CVA/TIA, Diabetes Mellitus, Renal Disease Additional Family Medical History / Comment(s): GLAUCOMA,NEUROPATHY HAD TRIPLE CABG, at 56yrs from renal disease. Mother Family Medical History: Hyperlipidemia Additional Family Medical History / Comment(s): DDD, HAD 3 vessel CABG AGE 54. General Exam Limitations: no limitations General appearance: alert, in no apparent distress Respiratory exam: Present: normal lung sounds bilaterally. Absent: respiratory distress, wheezes, rales, rhonchi, stridor Cardiovascular Exam: Present: regular rate, normal rhythm, normal heart sounds. Absent: systolic murmur, diastolic murmur, rubs, gallop, clicks GI/Abdominal exam: Present: soft, normal bowel sounds. Absent: distended, tenderness, guarding, rebound, rigid Extremities exam: Present: normal inspection, full ROM, normal capillary refill. Absent: tenderness, pedal edema, joint swelling, calf tenderness Back exam: Present: normal inspection, full ROM, CVA tenderness (L) Neurological exam: Present: alert, oriented X3, CN II-XII intact Skin exam: Present: warm, dry, intact, normal color. Absent: rash Course Vital Signs 01/22/25 01/22/25 01/23/25 22:18 23:40 00:40 Temperature 97.9 F 97.7 F Pulse Rate 101 H 92 90 Respiratory 18 18 18 Rate Blood Pressure 144/93 148/106 132/88 O2 Sat by Pulse 100 100 100 Oximetry Medical Decision Making - Medical Decision Making Was pt. sent in by a medical professional or institution (, PA, CLASSROOM INSTRUCTOR, urgent ca re, hospital, or usp...) When possible be specific @ -No Did you speak to anyone other than the patient for history (EMS, parent, family, police, friend...)? What history was obtained from this source @ -No Did you review nursing and triage notes (agree or disagree)? Why? @ -I reviewed and agree with nursing and triage notes Were old charts reviewed (outside hosp., previous admission, EMS record, old EKG, old radiological studies, urgent care reports/EKG's, usp records)? Report findings @ -Prior ER visits. Differential Diagnosis (chest pain, altered mental status, abdominal pain women, abdominal pain men, vaginal bleeding, weakness, fever, dyspnea, syncope, headache, dizziness, GI bleed, back pain, seizure, CVA, palpatations, mental health, musculoskeletal)? @ -Differential Abdominal Pain Women:Appendicitis, Cholecystitis, diverticulosis, ischemic bowel, pancreatitis, hepatitis, UTI, gastroenteritis, AAA, incarcerated hernia, bowel obstruction, constipation, inflammatory bowel, hepatitis, peptic ulcer disease, splenic infarction, perforated viscus, vulviti s, ovarian torsion, PID, kidney stone, placenta abruption, this is not meant to be an all-inclusive list EKG interpreted by me (3pts min.). @ -None done X-rays interpreted by me (1pt min.). @ -None done CT interpreted by me (1pt min.). @ -None done U/S interpreted by me (1pt. min.). @ -None done What testing was considered but not performed or refused? (CT, X-rays, U/S, labs)? Why? @ -Imaging deferred as patient reports pain is typical for flares. Patient is agreeable What meds were considered but not given or refused? Why? @ -None Did you discuss the management of the patient with other professionals (professionals i.e. STUART Yeager, CLASSROOM INSTRUCTOR, lab, RT, psych nurse, social work nurse, artistic director, teacher, boating safety officer, renal case manager)? Give summary @ -No Was smoking cessation discussed for >3mins.? @ -No Was critical care preformed (if so, how long)? @ -No Were there social determinants of health that impacted care today? How? (Homelessness, low income, unemployed, alcoholism, drug addiction, t ransportation, low edu. Level, literacy, decrease access to med. care, penitentiary, rehab)? @ -No Was there de-escalation of care discussed even if they declined (Discuss DNR or withdrawal of care, Hospice)? DNR status @ -No What co-morbidities impacted this encounter? (DM, HTN, Smoking, COPD, CAD, Cance r, CVA, ARF, Chemo, Hep., AIDS, mental health diagnosis, sleep apnea, morbid obesity)? @ -Hx kidney stone Was patient admitted / discharged? Hospital course, mention meds given and route, prescriptions, significant lab abnormalities, going to OR and other pertinent info. @ -Discharge. 49-year-old female presented to ER for evaluation of left flank pain. Patient mildly tachycardic at 101 bpm vitals otherwise stable. Laboratory studies remarkable for leukocytosis 12.6 likely reactive. Lactic 2.1 first patient received IV fluid bolus. Urine is hemorrhagic with greater than 182 RBCs, small leukocyte esterases and rare bacteria. Imaging deferred as patient has had numerous CAT scans in the past and pain feels typical of kidney stone. Patient is agreeable. Symptomatic control with improvement. Patient educated on today's findings and is agreeable for discharge. Patient discharged stable condition advised follow-up with urology and PCP. Patient states she does not need refill on oral analgesics or antiemetics. Return parameters discussed patient verbally expressed understanding and agreement with care plan. Case discussed with the ED attending, Dr. Bishop. Undiagnosed new problem with uncertain prognosis? @ -No Drug Therapy requiring intensive monitoring for toxicity (Heparin, Nitro, Insulin, Cardizem)? @ -No Were any procedures done? @ -No Diagnosis/symptom? @ -Left flank pain/nausea and vomiting Acute, or Chronic, or Acute on Chronic? @ -Acute on chronic Uncomplicated (without systemic symptoms) or Complicated (systemic symptoms)? @ -Complicated Side effects of treatment? @ -No Exacerbation, Progression, or Severe Exacerbation? @ -No Poses a threat to life or bodily function? How? (Chest pain, [place], [place], pneumonia, PE, COPD, DKA, ARF, appy, cholecystitis, CVA, Diverticulitis, Homicidal, Suicidal, threat to staff... and all critical care pts) @ -No - Lab Data Result diagrams: 01/22/25 23:20 01/22/25 23:20 Lab Results 01/22/25 01/22/25 01/22/25 Range/Units 23:20 23:20 23:20 WBC 12.64 H (4.50-10.00) 10*3/uL RBC 4.83 (4.10-5.20) 10*6/uL Hgb 14.7 (12.0-15.0) g/dL Hct 41.3 (37.2-46.3) % MCV 85.5 (80.0-97.0) fL MCH 30.4 (27.0-32.0) pg MCHC 35.6 (32.0-37.0) g/dL Plt Count 325 (140-440) 10*3/uL MPV 9.1 L (9.5-12.2) fL Immature Gran % (Auto) 0.5 % Neutrophils % 51.6 % Lymphocytes % 39.0 % Monocytes % 5.9 % Eosinophils % 2.5 % Basophils % 0.5 % Immature Gran # 0.06 H (0.00-0.04) 10*3/uL Neutrophils # 6.52 (1.80-7.70) 10*3/uL Lymphocytes # 4.93 (0.90-5.00) 10*3/uL Monocytes # 0.75 (0.20-1.00) 10*3/uL Eosinophils # 0.32 (0.04-0.35) 10*3/uL Basophils # 0.06 (0.00-0.10) 10*3/uL Manual Slide Review Performed Sodium 137 (137-145) mmol/L Potassium 4.0 (3.5-5.1) mmol/L Chloride 102 (98-107) mmol/L Carbon Dioxide 25 (22-30) mmol/L Anion Gap 10 mmol/L BUN 18 H (7-17) mg/dL Creatinine 0.46 L (0.52-1.04) mg/dL Est GFR (CKD-EPI)AfAm >90 (>60 ml/min/1.73 sqM) Est GFR (CKD-EPI)NonAf >90 (>60 ml/min/1.73 sqM) Glucose 165 H (74-99) mg/dL Lactic Ac Sepsis Rflx Plasma Lactic Acid Brant 2.1 H* (0.7-2.0) mmol/L Calcium 10.0 (8.4-10.2) mg/dL Total Bilirubin 0.8 (0.2-1.3) mg/dL AST 26 (14-36) U/L ALT 24 (4-34) U/L Alkaline Phosphatase 97 (38-126) U/L Total Protein 7.4 (6.3-8.2) g/dL Albumin 4.6 (3.5-5.0) g/dL Amylase 68 (30-110) U/L Lipase 134 (23-300) U/L Urine Color Urine Appearance (Clear) Urine pH (5.0-8.0) Ur Specific Elizabeth (1.001-1.035) Urine Protein (Negative) Urine Glucose (UA) (Negative) Urine Ketones (Negative) Urine Blood (Negative) Urine Nitrite (Negative) Urine Bilirubin (Negative) Urine Urobilinogen (<2.0) mg/dL Ur Leukocyte Esterase (Negative) Urine RBC (0-5) /hpf Urine WBC (0-5) /hpf Ur Squamous Epith Cells (0-4) /hpf Urine Bacteria (None) /hpf Urine Mucus (None) /hpf Urine Yeast (Budding) (None) /hpf 01/22/25 01/23/25 Range/Units 23:20 00:20 WBC (4.50-10.00) 10*3/uL RBC (4.10-5.20) 10*6/uL Hgb (12.0-15.0) g/dL Hct (37.2-46.3) % MCV (80.0-97.0) fL MCH (27.0-32.0) pg MCHC (32.0-37.0) g/dL Plt Count (140-440) 10*3/uL MPV (9.5-12.2) fL Immature Gran % (Auto) % Neutrophils % % Lymphocytes % % Monocytes % % Eosinophils % % Basophils % % Immature Gran # (0.00-0.04) 10*3/uL Neutrophils # (1.80-7.70) 10*3/uL Lymphocytes # (0.90-5.00) 10*3/uL Monocytes # (0.20-1.00) 10*3/uL Eosinophils # (0.04-0.35) 10*3/uL Basophils # (0.00-0.10) 10*3/uL Manual Slide Review Sodium (137-145) mmol/L Potassium (3.5-5.1) mmol/L Chloride (98-107) mmol/L Carbon Dioxide (22-30) mmol/L Anion Gap mmol/L BUN (7-17) mg/dL Creatinine (0.52-1.04) mg/dL Est GFR (CKD-EPI)AfAm (>60 ml/min/1.73 sqM) Est GFR (CKD-EPI)NonAf (>60 ml/min/1.73 sqM) Glucose (74-99) mg/dL Lactic Ac Sepsis Rflx Y Plasma Lactic Acid Brant (0.7-2.0) mmol/L Calcium (8.4-10.2) mg/dL Total Bilirubin (0.2-1.3) mg/dL AST (14-36) U/L ALT (4-34) U/L Alkaline Phosphatase (38-126) U/L Total Protein (6.3-8.2) g/dL Albumin (3.5-5.0) g/dL Amylase (30-110) U/L Lipase (23-300) U/L Urine Color Light Red Urine Appearance Cloudy H (Clear) Urine pH 6.5 (5.0-8.0) Ur Specific Elizabeth 1.025 (1.001-1.035) Urine Protein Trace H (Negative) Urine Glucose (UA) 1+ H (Negative) Urine Ketones Negative (Negative) Urine Blood Moderate H (Negative) Urine Nitrite Negative (Negative) Urine Bilirubin Negative (Negative) Urine Urobilinogen <2.0 (<2.0) mg/dL Ur Leukocyte Esterase Small H (Negative) Urine RBC >182 H (0-5) /hpf Urine WBC 9 H (0-5) /hpf Ur Squamous Epith Cells 8 H (0-4) /hpf Urine Bacteria Rare H (None) /hpf Urine Mucus Rare H (None) /hpf Urine Yeast (Budding) Moderate H (None) /hpf Disposition Clinical Impression: Left flank pain, Nausea and vomiting Disposition: HOME SELF-CARE Condition: Stable Additional Instructions: Follow-up with urology. Return to the ER for any new or worse concerns. Is patient prescribed a controlled substance at d/c from ED?: No Referrals: Rajiv Sexton MD [Primary Care Provider] - 1-2 days Luis Kincaid MD [STAFF PHYSICIAN] - 1-2 days Time of Disposition: 00:20
[2025-01-22] MEDS: SODIUM CHLORIDE 0.9% 1,000 ML IV ONE (23:22)
[2025-01-22] MEDS: ONDANSETRON 4 MG/2 ML VIAL IVP STA (23:23)
[2025-01-22] MEDS: KETOROLAC 15 MG/ML 1 ML VIAL IVP STA (23:25)
[2025-01-22] MEDS: HYDROmorphone 1 MG/ML 1 ML SYRINGE IVP STA (23:28)
[2025-01-22 23:33] LABS: Basophils # (A) 0.06 10*3/uL (0.00-0.10); Basophils % (A) 0.5 %; Eosinophils # (A) 0.32 10*3/uL (0.04-0.35); Eosinophils % (A) 2.5 %; HCT 41.3 % (37.2-46.3); HGB 14.7 g/dL (12.0-15.0); Lymphocytes # (A) 4.93 10*3/uL (0.90-5.00); Lymphocytes % (A) 39.0 %; MCH 30.4 pg (27.0-32.0); MCHC 35.6 g/dL (32.0-37.0); MCV 85.5 fL (80.0-97.0); Monocytes # (A) 0.75 10*3/uL (0.20-1.00); Monocytes % (A) 5.9 %; Neutrophils # (A) 6.52 10*3/uL (1.80-7.70); Neutrophils % (A) 51.6 %; Platelet Count 325 10*3/uL (140-440); RBC 4.83 10*6/uL (4.10-5.20); RDW 11.7 % (11.5-14.5); WBC 12.64 10*3/uL (4.50-10.00)
[2025-01-22 23:49] LABS: Bacteria,Urine Rare /hpf; Bilirubin,Urine Negative (Negative); Blood,Urine Moderate (Negative); Budding Yeast,Urine Moderate /hpf; Color,Urine Light Red; Glucose,Urine (UA) 1+ (Negative); Ketones,Urine Negative (Negative); Leukocyte Esterase,Urine Small (Negative); Mucus,Urine Rare /hpf; Nitrite,Urine Negative (Negative); PH, Urine 6.5 (5.0-8.0); Protein,Urine Trace (Negative); RBC,Urine >182 /hpf (0-5); Specific Gravity,Urine 1.025 (1.001-1.035); Squamous Epithelial Cell,Urine 8 /hpf (0-4); Urobilinogen,Urine <2.0 mg/dL (<2.0); WBC,Urine 9 /hpf (0-5)
[2025-01-22 23:52] LABS: ALT 24 U/L (4-34); AST 26 U/L (14-36); African American GFR (CKD) >90 (>60 ml/min/1.73 sqM); Albumin 4.6 g/dL (3.5-5.0); Alkaline Phosphatase 97 U/L (38-126); Amylase 68 U/L (30-110); Anion Gap 10 mmol/L; Blood Urea Nitrogen 18 mg/dL (7-17); Calcium 10.0 mg/dL (8.4-10.2); Carbon Dioxide 25 mmol/L (22-30); Chloride 102 mmol/L (98-107); Glucose 165 mg/dL (74-99); Lipase 134 U/L (23-300); Non-African American GFR(CKD) >90 (>60 ml/min/1.73 sqM); Potassium 4.0 mmol/L (3.5-5.1); Sodium 137 mmol/L (137-145); Total Protein 7.4 g/dL (6.3-8.2)
[2025-01-23] MEDS ORDERED: HYDROmorphone 0.5 MG/0.5 ML SYRINGE IVP STA (00:27)
[2025-01-23 00:42] VITALS: BP 132/88; PULSE 90; TEMP 97.7
== END 2025-01-23 00:43 | disposition home or self-care (01) ==
LOC: EC 22:00
DX: R10.9 Unspecified abdominal pain (principal); R11.2 Nausea with vomiting, unspecified; F17.290 Nicotine dependence, other tobacco product, uncomplicated; Z88.0 Allergy status to penicillin; Z88.1 Allergy status to other antibiotic agents; Z88.2 Allergy status to sulfonamides; Z88.8 Allergy status to other drugs, medicaments and biological substances; Z91.041 Radiographic dye allergy status; Z87.442 Personal history of urinary calculi
CPT/HCPCS: 36415; 80053; 82150; 83605; 83690; 85025; 81001; 99284; 96374; 96375; 96361; J2405; J1171; J1885

== ENCOUNTER → 2025-01-22 | Outpatient (CLI) | payer OTHER ==
--- NOTE | 2025-01-22 19:40 | MM ---
Reason for Exam: Screening (asymptomatic). Last mammogram was performed 3 year(s) and 11 month(s) ago. Patient History: Menarche at age 13. First Full-Term at age 32. Late child-bearing (after 31). Left ovary removed at age 37. Right ovary removed at age 37. Hysterectomy at age 37. Postmenopausal. Patient used Hormonal Contraceptives for 10 years. Paternal aunt had breast cancer. Risk Values: Yvonne 5 year model risk: 1.3%. NCI Lifetime model risk: 12.5%. Prior Study Comparison: 05/03/2011 Screening Mammogram, [facility]. 03/27/2018 Bilateral Screening Mammogram, [facility]. 02/03/2021 Bilateral Screening Mammogram, [facility]. Tissue Density: There are scattered areas of fibroglandular density. Findings: Analyzed By CAD. There appears to have been interval weight loss with decreased size of the breasts compared to 2020. There is no suspicious group of microcalcifications or new suspicious mass in either breast. Overall Assessment: Benign, BI-RAD 2 Management: Screening Mammogram of both breasts in 1 year. . Patient should continue monthly self-breast exams. A clinical breast exam by your physician is recommended on an annual basis. This exam should not preclude additional follow-up of suspicious palpable abnormalities. Note on Yvonne scores and lifetime risk: 1. A Yvonne score greater than 3% is considered moderate risk. If this is the case, consider specialist referral to assess eligibility for a risk reducing agent. 2. If overall lifetime risk for the development of breast cancer is 20% or higher, the patient may qualify for future screening with alternating mammogram and breast MRI. [facility], , 01/22/2025 7:37 PM. Electronically signed and approved by: Sisi Bentley M.D. Radiologist
== END | disposition home or self-care (01) ==
LOC: RADMAMWWP 09:30
PROVIDERS: ATTEND Physician Assistant
DX: Z12.31 Encounter for screening mammogram for malignant neoplasm of breast (principal); R92.323 Mammographic fibroglandular density, bilateral breasts; R63.4 Abnormal weight loss; Z92.0 Personal history of contraception; Z80.3 Family history of malignant neoplasm of breast; Z78.0 Asymptomatic menopausal state
CPT/HCPCS: 77067